=== PATIENT | female | born 1985 | race Caucasian/White ===

== ENCOUNTER 2016-10-26 22:29 | Emergency (ER) | payer MEDICAID ==
[2016-10-26 22:29] VITALS: BMI 27.8
--- NOTE | 2016-10-26 23:02 | C.PDOC ---
History Of Present Illness Patient presents to the ED requesting pain medications. Patient was recently seen at another ED for possible gastric pacing, however, it did not happen. Patient was at dialysis (Mon./Wed./Sun.) yesterday and complains of diffuse body pain. Patient also notes a fever. Patient denies any nausea, vomiting, diarrhea, or any other complaints. Time Seen by Provider: 10/26/16 23:00 Chief Complaint (Nursing): Shortness Of Breath History Per: Patient History/Exam Limitations: no limitations Onset/Duration Of Symptoms: Hrs Current Symptoms Are (Timing): Still Present Quality: "Pain" Current Respiratory Medications: None Severity: Mild Pain Scale Rating Of: 4 Associated Symptoms: Fever Recent travel outside of the [place]: No Past Medical History Reviewed: Historical Data, Nursing Documentation, Vital Signs Vital Signs: Last Vital Signs Temp 99.8 F H 10/27/16 01:41 Pulse 92 H 10/27/16 01:41 Resp 18 10/27/16 01:41 BP 152/100 H 10/27/16 01:41 Pulse Ox 99 10/27/16 01:41 - Medical History PMH: Anemia, Anxiety, Diabetes, Fractures (Sep 2012 L foot), Gastritis, Gastrointestinal Ulcer (gastroparesis), Gall Bladder Disease (gallbladder removed), Hepatitis, HTN, Hypercholesterolemia, Hyperthyroidism, Hypothyroidism , Kidney Stones, Pancreatitis (chronic), Peripheral Edema, End Stage Renal Disease, Chronic Kidney Disease, Seizures, Chronic Pain Denies: Sexually Transmitted Disease Surgical History: Cholecystectomy, Coronary Stent (2 weeks ago) - [facility] Procedures ASSISTANCE WITH RESPIRATORY VENTILATION, 24-96 HRS, CPAP (05/25/16) CAUTERY TO STOP EPISTAX (03/22/14) CENTRAL VENOUS CATHETER PLACEMENT WITH GUIDANCE (11/06/14) DIALYSIS ARTERIOVENOSTOM (01/10/14) DRAINAGE OF RIGHT FOOT SKIN, EXTERNAL APPROACH (07/17/16) DRAINAGE OF RIGHT LOWER ARM SKIN, EXTERNAL APPROACH (05/25/16) ESOPHAGOGASTRODUODENOSCOPY [EGD] W/CLOSED BIOPSY (03/03/14) EXCISION OF STOMACH, ENDO, DIAGN (05/09/16) EXTIRPATE MATTER FROM R LOW ARM SUBCU/FASCIA, PERC (05/25/16) EXTRACTION OF RIGHT FOOT SKIN, EXTERNAL APPROACH (05/25/16) FLEXIBLE SIGMOIDOSCOPY (10/26/14) FLUOROSCOPY OF R JUGULAR VEIN USING L OSM CONTRAST, GUIDANCE (12/13/15) FLUOROSCOPY OF RIGHT SUBCLAVIAN VEIN, GUIDANCE (08/07/16) HEMODIALYSIS (04/05/15) INJECT INSULIN (12/23/12) INJECT/INFUSE ELECTROLYT (12/23/12) INJECT/INFUSE NEC (01/17/15) INSERT INFUSION DEV IN R INT JUGULAR VEIN, PERC (02/23/16) INSERTION OF INFUSION DEV INTO R BASILIC VEIN, PERC APPROACH (04/18/16) INSERTION OF INFUSION DEV INTO R SUBCLAV VEIN, PERC APPROACH (08/29/16) INSERTION OF INFUSION DEV INTO SUP VENA CAVA, PERC APPROACH (05/25/16) INSERTION OF INFUSION DEVICE INTO R ATRIUM, PERC APPROACH (12/13/15) INSERTION OF VAD INTO CHEST SUBCU/FASCIA, OPEN APPROACH (12/13/15) MEASURE OF CARDIAC SAMPL & PRESSURE, L HEART, PERC APPROACH (10/09/16) OTHER ENDOSCOPY OF SM INTEST (08/25/14) PACKED CELL TRANSFUSION (10/26/14) PERFORMANCE OF URINARY FILTRATION, MULTIPLE (10/09/16) PERFORMANCE OF URINARY FILTRATION, SINGLE (10/02/16) PLAIN RADIOGRAPHY OF LEFT HEART USING OTHER CONTRAST (10/09/16) PLAIN RADIOGRAPHY OF MULT COR ART USING OTH CONTRAST (10/09/16) PLICATION OF VENA CAVA (03/22/14) POST NASAL PAC FOR EPIST (03/22/14) REMOVAL OF VAD FROM TRUNK SUBCU/FASCIA, OPEN APPROACH (02/23/16) MELVIN KENNY DIALYSIS SHUNT (03/03/14) THERAPEUTIC ERYTHROCYTAPHERESIS (10/26/14) TRANSFUSE NONAUT RED BLOOD CELLS IN PERIPH VEIN, PERC (08/29/16) ULTRASONOGRAPHY OF RIGHT SUBCLAVIAN VEIN, GUIDANCE (08/29/16) VACCINATION NEC (10/26/14) VENOUS CATHETERIZATION FOR RENAL DIALYSIS (03/03/14) Family History: States: Unknown Family Hx - Social History Hx Tobacco Use: No Hx Alcohol Use: No Hx Substance Use: Yes - Immunization History Hx Tetanus Toxoid Vaccination: Yes Hx Influenza Vaccination: Yes Hx Pneumococcal Vaccination: Yes Review Of Systems Except As Marked, All Systems Reviewed And Found Negative. Constitutional: Positive for: Fever Cardiovascular: Negative for: Chest Pain Respiratory: Negative for: Shortness of Breath Gastrointestinal: Negative for: Nausea, Vomiting, Diarrhea Musculoskeletal: Positive for: Back Pain, Other (Diffuse body pain.) Skin: Negative for: Rash, Lesions Neurological: Negative for: Weakness Psych: Positive for: Anxiety Physical Exam - Physical Exam Appears: Non-toxic Skin: Warm, Dry Cardiovascular: Rhythm Regular Respiratory: No Rales, Rhonchi (Scattered rhonchi), No Wheezing Gastrointestinal/Abdominal: Soft, No Tenderness, Distention, No Guarding, No Rebound, Other (Tympanic to percussion) Extremity: Normal ROM, No Tenderness Neurological/Psych: Oriented x3 ED Course And Treatment - Laboratory Results Result Diagrams: 10/27/16 01:37 10/27/16 01:37 O2 Sat by Pulse Oximetry: 98 Pulse Ox Interpretation: Normal - Radiology CXR: Interpreted by Me, Viewed By Me CXR Interpretation: Yes: Other (Abnormal heart. Unchanged from previous.). No: Infiltrates, Fracture Reevaluation Time: 02:16 Reassessment Condition: Improved Disposition Counseled Patient/Family Regarding: Studies Performed, Diagnosis, Need For Followup - Disposition Referrals: Cecil Wilkins Jr., MD [Medical Doctor] - Disposition: HOME/ ROUTINE Disposition Time: 02:14 Condition: FAIR Instructions: Fever in Adults (GEN) - Clinical Impression Clinical Impression: Fever, Chronic intractable pain - Scribe Statement The provider has reviewed the documentation as recorded by the Scribjoan Noland All medical record entries made by the Kwadwoibjoan were at my direction and personally dictated by me. I have reviewed the chart and agree that the record accurately reflects my personal performance of the history, physical exam, medical decision making, and the department course for this patient. I have also personally directed, reviewed, and agree with the discharge instructions and disposition.
[2016-10-27 01:40] LABS: VENOUS BLOOD GAS BASE EXCESS -0.6 mmol/L (0.0-2.0); VENOUS BLOOD GAS PCO2 43 mmHg (40-60); VENOUS BLOOD PH 7.37 (7.32-7.43)
[2016-10-27 01:40] LABS: BASO # 0.1 K/uL (0.0-0.2); BASO % 0.9 % (0.0-2.0); EOS # 0.2 K/uL (0.0-0.7); EOS % 2.3 % (0.0-4.0); HEMATOCRIT 24.5 % (34.0-47.0); LYMPH # 0.7 K/uL (1.0-4.3); LYMPH % 7.6 % (20.0-40.0); MEAN CORPUSCULAR HEMOGLOBIN 31.1 pg (27.0-31.0); MEAN CORPUSCULAR HGB CONC 32.7 g/dL (33.0-37.0); MEAN PLATELET VOLUME 7.4 fL (7.2-11.7); MONO # 0.6 K/uL (0.0-0.8); MONO % 6.5 % (0.0-10.0); NRBC % 0.1 % (0.0-2.0); PLATELET COUNT 280 K/uL (130-400); RED CELL DISTRIBUTION WIDTH 15.4 % (11.5-14.5); WHITE BLOOD COUNT 9.6 K/uL (4.8-10.8)
[2016-10-27 01:42] VITALS: BP 152/100; PULSE 92; RESP 18; TEMP 99.8
[2016-10-27 01:55] LABS: POTASSIUM 5.4 mmol/L (3.6-5.2)
[2016-10-27 01:58] LABS: ALB/GLOB RATIO 1.2 (1.0-2.1); BILIRUBIN,TOTAL 0.4 mg/dL (0.2-1.3); CALCIUM 7.7 mg/dl (8.6-10.4); TOTAL PROTEIN 7.2 g/dL (6.3-8.3)
[2016-10-27] MEDS ORDERED: DiphenhydrAMINE 50 mg/ml Inj ONE (01:59)
[2016-10-27] MEDS ORDERED: DiphenhydrAMINE 50 mg/ml Inj IVP STA (02:04)
[2016-10-27 02:06] LABS: EOSINOPHIL 1 % (0-4); NEUTROPHIL 82 % (50-75); TOTAL CELLS COUNTED 100
[2016-10-27 02:16] VITALS: O2SAT 98
--- NOTE | 2016-10-27 08:50 | RAD ---
HISTORY: SOB COMPARISON: Chest x-ray performed 09/22/16 TECHNIQUE: Chest, one view. FINDINGS: LUNGS: Mild basilar atelectasis or infiltrates. Please note that chest x-ray has limited sensitivity for the detection of pulmonary masses. PLEURA: No significant pleural effusion identified. No definite pneumothorax . CARDIOVASCULAR: Cardiomegaly with CTR approximately 18 x 29.3. OSSEOUS STRUCTURES: No acute osseous abnormality identified. VISUALIZED UPPER ABDOMEN: Unremarkable. OTHER FINDINGS: None. IMPRESSION: Mild basilar atelectasis or infiltrates. Cardiomegaly.
== END 2016-10-27 02:23 | disposition home or self-care (01) ==
LOC: C.ER 22:29
DX: G89.29 Other chronic pain (principal); R50.9 Fever, unspecified

== ENCOUNTER 2016-10-30 15:17 | Inpatient (IN) | payer MEDICAID ==
[2016-10-30 15:32] VITALS: BMI 27.4
[2016-10-30] MEDS ORDERED: Piperacill/Tazo 2.25gm in Dex 50 ML IVPB STA (17:16)
--- NOTE | 2016-10-30 17:36 | C.PDOC ---
History Of Present Illness 30 y/o female presents to the ED for evaluation of fevers x 3 days. She is also complaining of constant chest pain and left shoulder pain x 3 days. Patient denies cough, shortness of breath, nausea, vomiting, abdominal pain, diarrhea, weakness, or numbness. Time Seen by Provider: 10/30/16 17:13 Chief Complaint (Nursing): Chest Pain History Per: Patient History/Exam Limitations: no limitations Onset/Duration Of Symptoms: Days (3), Gradual, Persistent Current Symptoms Are (Timing): Still Present Recent travel outside of the [place]: No Past Medical History Reviewed: Historical Data, Nursing Documentation, Vital Signs Vital Signs: Last Vital Signs Temp 102 F H 10/30/16 15:32 Pulse 100 H 10/30/16 17:30 Resp 22 10/30/16 15:32 BP 156/91 H 10/30/16 15:32 Pulse Ox 98 10/30/16 17:38 - Medical History PMH: Anemia, Anxiety, Diabetes, Fractures (Sep 2012 L foot), Gastritis, Gastrointestinal Ulcer (gastroparesis), Gall Bladder Disease (gallbladder removed), Hepatitis, HTN, Hypercholesterolemia, Hyperthyroidism, Hypothyroidism , Kidney Stones, Pancreatitis (chronic), Peripheral Edema, End Stage Renal Disease, Chronic Kidney Disease, Seizures, Chronic Pain Surgical History: Cholecystectomy, Coronary Stent - [facility] Procedures ASSISTANCE WITH RESPIRATORY VENTILATION, 24-96 HRS, CPAP (05/25/16) CAUTERY TO STOP EPISTAX (03/22/14) CENTRAL VENOUS CATHETER PLACEMENT WITH GUIDANCE (11/06/14) DIALYSIS ARTERIOVENOSTOM (01/10/14) DRAINAGE OF RIGHT FOOT SKIN, EXTERNAL APPROACH (07/17/16) DRAINAGE OF RIGHT LOWER ARM SKIN, EXTERNAL APPROACH (05/25/16) ESOPHAGOGASTRODUODENOSCOPY [EGD] W/CLOSED BIOPSY (03/03/14) EXCISION OF STOMACH, ENDO, DIAGN (05/09/16) EXTIRPATE MATTER FROM R LOW ARM SUBCU/FASCIA, PERC (05/25/16) EXTRACTION OF RIGHT FOOT SKIN, EXTERNAL APPROACH (05/25/16) FLEXIBLE SIGMOIDOSCOPY (10/26/14) FLUOROSCOPY OF R JUGULAR VEIN USING L OSM CONTRAST, GUIDANCE (12/13/15) FLUOROSCOPY OF RIGHT SUBCLAVIAN VEIN, GUIDANCE (08/07/16) HEMODIALYSIS (04/05/15) INJECT INSULIN (12/23/12) INJECT/INFUSE ELECTROLYT (12/23/12) INJECT/INFUSE NEC (01/17/15) INSERT INFUSION DEV IN R INT JUGULAR VEIN, PERC (02/23/16) INSERTION OF INFUSION DEV INTO R BASILIC VEIN, PERC APPROACH (04/18/16) INSERTION OF INFUSION DEV INTO R SUBCLAV VEIN, PERC APPROACH (08/29/16) INSERTION OF INFUSION DEV INTO SUP VENA CAVA, PERC APPROACH (05/25/16) INSERTION OF INFUSION DEVICE INTO R ATRIUM, PERC APPROACH (12/13/15) INSERTION OF VAD INTO CHEST SUBCU/FASCIA, OPEN APPROACH (12/13/15) MEASURE OF CARDIAC SAMPL & PRESSURE, L HEART, PERC APPROACH (10/09/16) OTHER ENDOSCOPY OF SM INTEST (08/25/14) PACKED CELL TRANSFUSION (10/26/14) PERFORMANCE OF URINARY FILTRATION, MULTIPLE (10/09/16) PERFORMANCE OF URINARY FILTRATION, SINGLE (10/02/16) PLAIN RADIOGRAPHY OF LEFT HEART USING OTHER CONTRAST (10/09/16) PLAIN RADIOGRAPHY OF MULT COR ART USING OTH CONTRAST (10/09/16) PLICATION OF VENA CAVA (03/22/14) POST NASAL PAC FOR EPIST (03/22/14) REMOVAL OF VAD FROM TRUNK SUBCU/FASCIA, OPEN APPROACH (02/23/16) MELVIN KENNY DIALYSIS SHUNT (03/03/14) THERAPEUTIC ERYTHROCYTAPHERESIS (10/26/14) TRANSFUSE NONAUT RED BLOOD CELLS IN PERIPH VEIN, PERC (08/29/16) ULTRASONOGRAPHY OF RIGHT SUBCLAVIAN VEIN, GUIDANCE (08/29/16) VACCINATION NEC (10/26/14) VENOUS CATHETERIZATION FOR RENAL DIALYSIS (03/03/14) Family History: States: Unknown Family Hx - Social History Hx Tobacco Use: No Hx Alcohol Use: No Hx Substance Use: Yes - Immunization History Hx Tetanus Toxoid Vaccination: Yes Hx Influenza Vaccination: Yes Hx Pneumococcal Vaccination: Yes Review Of Systems Except As Marked, All Systems Reviewed And Found Negative. Constitutional: Positive for: Fever Cardiovascular: Positive for: Chest Pain Respiratory: Negative for: Cough, Shortness of Breath Gastrointestinal: Negative for: Nausea, Vomiting, Abdominal Pain, Diarrhea Musculoskeletal: Positive for: Shoulder Pain (left) Neurological: Negative for: Weakness, Numbness Physical Exam - Physical Exam Appears: Non-toxic, No Acute Distress Skin: Normal Color, Warm, Dry Head: Atraumatic, Normacephalic Eye(s): bilateral: Normal Inspection, PERRL Ear(s): Bilateral: Normal Nose: Normal Oral Mucosa: Moist Throat: Normal, No Erythema, No Exudate Neck: Normal ROM, Supple Chest: Symmetrical, No Tenderness Cardiovascular: Rhythm Regular Respiratory: Normal Breath Sounds, No Rales, No Rhonchi, No Wheezing Gastrointestinal/Abdominal: Normal Exam, Soft, No Tenderness Back: Normal Inspection, No CVA Tenderness Extremity: Normal ROM, No Tenderness, No Deformity, No Swelling Neurological/Psych: Oriented x3, Normal Speech, Normal Cognition ED Course And Treatment - Laboratory Results Result Diagrams: 10/30/16 17:50 10/30/16 17:50 O2 Sat by Pulse Oximetry: 98 (ra) Pulse Ox Interpretation: Normal Medical Decision Making Medical Decision Makin the pt is refusing abx she says until she receives narcotics [id number] Wilkins who will admit- says pt had recent +blood cx for MRSA. he agrees that narcotic are only harming the pt at this point and rec no narcotics. pt now will accept vanco Disposition - Disposition Disposition Time: 18:50 Condition: SERIOUS - Clinical Impression Clinical Impression: Fever, Positive blood culture - Scribe Statement The provider has reviewed the documentation as recorded by the Scribe (Dennise Mix) Provider Attestation: All medical record entries made by the Scribe were at my direction and personally dictated by me. I have reviewed the chart and agree that the record accurately reflects my personal performance of the history, physical exam, medical decision making, and the department course for this patient. I have also personally directed, reviewed, and agree with the discharge instructions and disposition.
[2016-10-30 17:58] LABS: VENOUS BLOOD GAS BASE EXCESS -3.4 mmol/L (0.0-2.0); VENOUS BLOOD GAS PCO2 32 mmHg (40-60); VENOUS BLOOD PH 7.41 (7.32-7.43)
[2016-10-30 18:01] LABS: POTASSIUM 6.1 mmol/L (3.6-5.2)
[2016-10-30 18:03] LABS: BILIRUBIN,TOTAL 0.5 mg/dL (0.2-1.3)
[2016-10-30 18:04] LABS: ALB/GLOB RATIO 1.2 (1.0-2.1); CALCIUM 6.4 mg/dl (8.6-10.4); TOTAL PROTEIN 7.1 g/dL (6.3-8.3)
[2016-10-30 18:11] LABS: BASO # 0.1 K/uL (0.0-0.2); BASO % 1.3 % (0.0-2.0); EOS # 0.2 K/uL (0.0-0.7); EOS % 2.4 % (0.0-4.0); HEMATOCRIT 21.8 % (34.0-47.0); LYMPH # 0.9 K/uL (1.0-4.3); LYMPH % 9.1 % (20.0-40.0); MEAN CELL VOLUME 94.9 fL (81.0-99.0); MEAN CORPUSCULAR HEMOGLOBIN 31.4 pg (27.0-31.0); MEAN CORPUSCULAR HGB CONC 33.1 g/dL (33.0-37.0); MEAN PLATELET VOLUME 8.7 fL (7.2-11.7); MONO # 0.7 K/uL (0.0-0.8); MONO % 7.3 % (0.0-10.0); NRBC % 0.2 % (0.0-2.0); PLATELET COUNT 222 K/uL (130-400); RED CELL DISTRIBUTION WIDTH 15.3 % (11.5-14.5); WHITE BLOOD COUNT 10.1 K/uL (4.8-10.8)
[2016-10-30 18:15] LABS: TROPONIN I 0.047 ng/mL (0.00-0.120)
[2016-10-30 18:47] LABS: EOSINOPHIL 3 % (0-4); LARGE PLATELETS PRESENT; NEUTROPHIL 75 % (50-75); SMUDGE CELLS PRESENT; TOTAL CELLS COUNTED 100
[2016-10-30] MEDS ORDERED: Vancomycin 1 gm/NS 200 ml 200 ML IVPB ONE (19:00)
[2016-10-31] MEDS ORDERED: DiphenhydrAMINE 50 mg/ml Inj IVP STA ×4 (01:35→16:53)
--- NOTE | 2016-10-31 05:18 | CP.PCM.HP ---
History of Present Illness - History of Present Illness History of Present Illness: CC: "Fever, Abdominal Pain, and Right shoulder pain" HPI: Patient a 30 year old female with a past medical history significant for gastroparesis, DM, HTN, right foot abscess, ESRD (HD MWF), 2004, and chronic opiate dependence presenting for medical evaluation of abdominal pain and chest pain (consistent with her baseline). She has a known history of gastroparesis. The patient was requesting pain medication in the emergency room as well as on the floors. Patient states she went to dialysis center yesterday however did not receive hemodialysis as she was found to be febrile. She admits to fevers x 3 days and chills. Patient also notes one episode of bilious emesis yesterday. Patient is also reporting right shoulder pain which started yesterday and denies any trauma/falls. Per ED attending, patient's blood culture (10/27/16) resulted positive for MRSA. PMD: Dr. Franky Hanson: Dr. Phillips PMH: gastroparesis, DM, HTN, Right foot abscess, ESRD on HD MWF, 2004, chronic opiate dependence Meds: Extensive Medication list is updated in EMR Allergy: Toradol, Latex, Morphine, Tramadol PSH: exlap for adhesions 2005 and 2009. Cholecystectomy 2009. L arm AVF 2014, I& D right foot abscess FH: DM mother and unknown ca in mother's family Social: denied EtOH, drugs, smoking. Lives with mother Present on Admission - Present on Admission Any Indicators Present on Admission: No History of DVT/PE: No History of Uncontrolled Diabetes: No Urinary Catheter: No Decubitus Ulcer Present: No Review of Systems - Constitutional Constitutional: Chills, Fever. absent: Night Sweats - EENT Eyes: absent: Blurred Vision, Change in Vision Nose/Mouth/Throat: absent: Nasal Congestion, Nasal Discharge - Cardiovascular Cardiovascular: Chest Pain. absent: Dyspnea, Dyspnea on Exertion - Respiratory Respiratory: absent: Cough, Dyspnea, Dyspnea on Exertion, Chest Congestion - Gastrointestinal Gastrointestinal: Abdominal Pain. absent: Constipation, Diarrhea - Genitourinary Genitourinary: Other Additional comments: ESRD - Musculoskeletal Additional comments: right shoulder pain - Integumentary Integumentary: Lesions Additional comments: lesions present on left upper extremity present for 1 month - Psychiatric Psychiatric: Anxiety. absent: Depression Past Patient History - Infectious Disease Hx of Infectious Diseases: MRSA - Tetanus Immunizations Tetanus Immunization: Unknown - Past Medical History & Family History Past Medical History?: Yes - Past Social History Smoking Status: Never Smoked - CARDIAC Hx Hypercholesterolemia: Yes Hx Hypertension: Yes Hx Peripheral Edema: Yes - NEUROLOGICAL Hx Seizures: Yes - HEENT Hx HEENT Problems: No - RENAL Hx Chronic Kidney Disease: Yes Type of Dialysis Access: left arm av shunt Date of Last Dialysis Treatment: 10/27/16 Hx Kidney Stones: Yes - ENDOCRINE/METABOLIC Hx Diabetes Mellitus Type 2: Yes Hx Hypothyroidism: Yes - HEMATOLOGICAL/ONCOLOGICAL Hx Anemia: Yes - INTEGUMENTARY Hx Dermatological Problems: Yes Other/Comment: DRY ITCHY SKIN ;multiple/generalized dark spots on skin - MUSCULOSKELETAL/RHEUMATOLOGICAL Hx Falls: No - GASTROINTESTINAL Hx Gall Bladder Disease: Yes (gallbladder removed) Hx Gastritis: Yes Hx Pancreatitis: Yes (chronic) Other/Comment: gastroparesis - GENITOURINARY/GYNECOLOGICAL Hx Genitourinary Disorders: No - PSYCHIATRIC Hx Substance Use: No - SURGICAL HISTORY Hx Cholecystectomy: Yes Hx Coronary Stent: Yes - ANESTHESIA Hx Anesthesia: Yes Hx Anesthesia Reactions: No Hx Malignant Hyperthermia: No Meds Allergies/Adverse Reactions: Allergies Allergy/AdvReac Type Severity Reaction Status Date / Time ketorolac tromethamine Allergy RASH Verified 10/30/16 15:32 [From Toradol] latex Allergy RASH Verified 10/30/16 15:32 morphine Allergy RASH Verified 10/30/16 15:32 tramadol Allergy RASH Verified 10/30/16 15:32 Physical Exam - Constitutional Appears: Non-toxic, No Acute Distress - Head Exam Head Exam: ATRAUMATIC, NORMAL INSPECTION, NORMOCEPHALIC - Eye Exam Eye Exam: EOMI, Normal appearance, PERRL - ENT Exam ENT Exam: Mucous Membranes Moist - Respiratory Exam Respiratory Exam: Clear to Auscultation Bilateral, NORMAL BREATHING PATTERN. absent: Rales, Rhonchi, Wheezes - Cardiovascular Exam Cardiovascular Exam: +S1, +S2. absent: Tachycardia, Diastolic murmur, Systolic Murmur - GI/Abdominal Exam GI & Abdominal Exam: Normal Bowel Sounds, Soft, Tenderness. absent: Distended, Firm, Guarding - Extremities Exam Extremities exam: Positive for: pedal edema, pedal pulses present. Negative for : tenderness - Back Exam Back exam: NORMAL INSPECTION - Neurological Exam Neurological exam: Alert, CN II-XII Intact, Oriented x3 - Psychiatric Exam Psychiatric exam: Anxious - Skin Additional comments: multiple papular lesions with pustules to right upper extremity Results - Vital Signs Recent Vital Signs: Last Vital Signs Temp 98 F 10/31/16 02:30 Pulse 84 10/31/16 02:30 Resp 22 10/31/16 02:30 BP 166/92 H 10/31/16 02:30 Pulse Ox 98 10/31/16 02:30 - Labs Result Diagrams: 10/30/16 17:50 10/30/16 17:50 Assessment & Plan - Assessment and Plan (Free Text) Assessment: 1. Bacteremia Blood cx (10/27) MRSA positive f/u repeat blood cx f/u cxr Vancomycin 1 gm IVPB q24h Tylenol 650 mg po q6h prn for fever Consult ID, Dr. Pinto. 2. ESRD on HD HD MWF schedule Nephro Consult Dr. Jacqueline MAXWELL Labs: CBC/CMP/Mg/Phos 3. Abdominal Pain likely secondary to gastroparesis Renal diet Reglan 10 mg po daily Zofran 4 mg IVP q6h prn Per Dr. Wilkins - do not continue to give dilaudid 4. Hypertension Clonidine 0.3 mg po TID Procardia 60 mg BID Monitor 5. DM Levemir 12 units SC Q12H Novolog 6 unit SC AC RISS Accuchecks 6. Prophylaxis SCD Colace 100 mg po BID Heparin 5000 U SC q12 Pepcid 20 mg po daily - Date & Time Date: 10/31/16 Time: 05:46
[2016-10-31] MEDS: (Novolog) Insulin Aspart, Recombinant 100 u/ml 10 ml vial SC SCH ×3 (07:46→16:30)
[2016-10-31] MEDS: (Novolin R) Insulin Human Regular 100 units/ml vial SC SCH ×4 (07:46→22:02)
--- NOTE | 2016-10-31 07:56 | CP.PCM.PN ---
Subjective - Date & Time of Evaluation Date of Evaluation: 10/31/16 Time of Evaluation: 07:35 - Subjective Subjective: PGY1 Medicine Note - Dr. Wilkins Patient seen and examined at bedside. Reports fevers x 3 days and chills. Patient also notes one episode of bilious emesis yesterday. Patient is also reporting right shoulder pain which started yesterday and denies any trauma/ falls. Per ED attending, patient's blood culture (10/27/16) resulted positive for MRSA. Denies dizziness, chest pain, SOB, d/c, Objective - Vital Signs/Intake and Output Vital Signs (last 24 hours): Temp Pulse Resp BP Pulse Ox 98 F 103 H 20 165/93 H 97 10/31/16 07:48 10/31/16 07:48 10/31/16 07:48 10/31/16 07:48 10/31/16 07:48 Intake and Output: 10/31/16 10/31/16 06:59 18:59 Intake Total 240 Balance 240 - Medications Medications: Current Medications Acetaminophen (Tylenol 325mg Tab) 650 mg PO Q6 PRN PRN Reason: Fever >100.4 F Clonidine HCl (Catapres) 0.3 mg PO TID AKREN Docusate Sodium (Colace) 100 mg PO BID KAREN Famotidine (Pepcid) 20 mg PO DAILY [facility] Heparin Sodium (Porcine) (Heparin) 5,000 units SC Q12 [facility] Vancomycin HCl 1 gm/ Sodium (Chloride) 250 mls @ 166.7 mls/hr IVPB Q24H [facility] Insulin Aspart (Novolog) 6 unit SC AC [facility] Last Admin: 10/31/16 07:46 Dose: Not Given Insulin Detemir (Levemir) 12 unit SC Q12 [facility] Insulin Human Regular (Novolin R) 0 unit SC ACHS KAREN PRN Reason: Protocol Last Admin: 10/31/16 07:46 Dose: Not Given Metoclopramide HCl (Reglan) 10 mg PO DAILY [facility] Nifedipine (Procardia Xl) 60 mg PO BID KAREN Ondansetron HCl (Zofran Inj) 4 mg IVP Q6H PRN PRN Reason: Nausea/Vomiting - Additional Findings Additional findings: - Constitutional Appears: Non-toxic, No Acute Distress - Head Exam Head Exam: ATRAUMATIC, NORMAL INSPECTION, NORMOCEPHALIC - Eye Exam Eye Exam: EOMI, Normal appearance, PERRL - ENT Exam ENT Exam: Mucous Membranes Moist - Respiratory Exam Respiratory Exam: Clear to Auscultation Bilateral, NORMAL BREATHING PATTERN. absent: Rales, Rhonchi, Wheezes - Cardiovascular Exam Cardiovascular Exam: +S1, +S2. absent: Tachycardia, Diastolic murmur, Systolic Murmur - GI/Abdominal Exam GI & Abdominal Exam: Normal Bowel Sounds, Soft, Tenderness. absent: Distended, Firm, Guarding - Extremities Exam Extremities exam: Positive for: pedal edema, pedal pulses present. Negative for : tenderness - Back Exam Back exam: NORMAL INSPECTION - Neurological Exam Neurological exam: Alert, CN II-XII Intact, Oriented x3 - Psychiatric Exam Psychiatric exam: Anxious - Skin Additional comments: multiple papular lesions with pustules to right upper extremity Assessment and Plan - Assessment and Plan (Free Text) Assessment: Bacteremia f/u repeat blood cx - G(+), pending Blood cx (10/27) MRSA positive CXR - moderate CHF Vancomycin 1 gm IVPB q24h Tylenol 650 mg po q6h prn for fever Consult ID, Dr. Pinto. -mrsa sepsis source unclear r/o dialysis related, skin source, other may need KAMRAN to r/o endocarditis ESRD on HD HD MWF schedule (received 10/31) Nephro Consult Dr. Phillips -EPO 10.000 + FERRLICIT 125 MG ON HD Abdominal Pain likely secondary to gastroparesis Renal diet Reglan 10 mg po daily Zofran 4 mg IVP q6h prn Per Dr. Wilkins - do not continue to give dilaudid Hypertension Clonidine 0.3 mg po TID Procardia 60 mg BID Monitor DM Levemir 12 units SC Q12H Novolog 6 unit SC AC RISS Accuchecks Depression Lexapro 20mg PO daily Cymbalta 60mg PO BID Prophylaxis SCD Colace 100 mg po BID START Xarelto 15mg daily STOP Heparin 5000 U SC q12 (patient can't tolerate injection) Pepcid 20 mg po daily Right shoulder pain CXR R shoulder- negative
[2016-10-31] MEDS ORDERED: Epoetin Alfa 10,000 unit/ml Dialysis IV ONE (09:31)
[2016-10-31 09:48] LABS: BASO # 0.1 K/uL (0.0-0.2); EOS # 0.4 K/uL (0.0-0.7); EOS % 3.6 % (0.0-4.0); HEMATOCRIT 22.9 % (34.0-47.0); LYMPH % 10.3 % (20.0-40.0); MEAN CELL VOLUME 94.3 fL (81.0-99.0); MEAN CORPUSCULAR HGB CONC 32.8 g/dL (33.0-37.0); MEAN PLATELET VOLUME 8.4 fL (7.2-11.7); MONO # 0.5 K/uL (0.0-0.8); MONO % 5.1 % (0.0-10.0); RED CELL DISTRIBUTION WIDTH 15.3 % (11.5-14.5)
[2016-10-31 09:58] LABS: POTASSIUM 4.9 mmol/L (3.6-5.2)
[2016-10-31 10:00] LABS: ALB/GLOB RATIO 1.1 (1.0-2.1); BILIRUBIN,TOTAL 0.6 mg/dL (0.2-1.3); PHOSPHOROUS 4.9 mg/dL (2.5-4.5); TOTAL PROTEIN 7.5 g/dL (6.3-8.3)
[2016-10-31 10:01] LABS: CALCIUM 7.1 mg/dl (8.6-10.4)
--- NOTE | 2016-10-31 10:21 | RAD ---
PROCEDURE: CHEST RADIOGRAPH, 1 VIEW HISTORY: Chest pain COMPARISON: 10/27/2016 FINDINGS: LUNGS: There is interval worsening of pulmonary venous congestion and development of interstitial pulmonary edema. PLEURA: There are small pleural effusions, larger on the right. No pneumothorax. CARDIOVASCULAR: There is persistent moderate cardiomegaly. OSSEOUS STRUCTURES: No significant abnormalities. VISUALIZED UPPER ABDOMEN: Upper OTHER FINDINGS: None. IMPRESSION: Findings are compatible with moderate congestive heart failure.
--- NOTE | 2016-10-31 10:26 | RAD ---
PROCEDURE: Radiographs of the Left Shoulder HISTORY: pain COMPARISON: No prior. FINDINGS: BONES: Normal. No fracture. JOINTS: Normal. Glenohumeral and acromioclavicular joints preserved. No osteoarthritis. SOFT TISSUES: Normal. OTHER FINDINGS: None. IMPRESSION: Normal radiographs of the left shoulder.
[2016-10-31] MEDS: Ferric Sodium Gluconat Complex 62.5 mg/5 ml Vial IVPB SCH (10:40)
--- NOTE | 2016-10-31 11:59 | CP.PCM.CON ---
History of Present Illness - History of Present Illness History of Present Illness: 30 year old female admitted with fever from dialysis clinic r/o sepsis blood culture (10/27/16) resulted positive for MRSA. PMH gastroparesis, DM, HTN, right foot abscess, ESRD (HD MWF), [place] 2004, and chronic opiate dependence PMD: Dr. Franky Hanson: Dr. Phillips PMH: gastroparesis, DM, HTN, Right foot abscess, ESRD on HD MWF, [place] 2004, chronic opiate dependence Allergy: Toradol, Latex, Morphine, Tramadol PSH: exlap for adhesions 2005 and 2009. Cholecystectomy 2009. L arm AVF 2014, I& D right foot abscess FH: DM mother and unknown ca in mother's family Social: denied EtOH, drugs, smoking. Lives with mother Review of Systems - Constitutional Constitutional: As Per HPI, Anorexia, Chills - EENT Eyes: absent: As Per HPI, Blind Spots, Blurred Vision, Change in Vision, Decreased Night Vision, Diplopia, Discharge, Dry Eye, Exophthalmos, Floaters, Irritation, Itchy Eyes, Loss of Peripheral Vision, Pain, Photophobia, Requires Corrective Lenses, Sees Flashes, Spots in Vision, Tunnel Vision, Other Visual Disturbances, Loss of Vision, Other Ears: absent: As Per HPI, Decreased Hearing, Ear Discharge, Ear Pain, Tinnitus, Abnormal Hearing, Disequilibrium, Dizziness, Other Nose/Mouth/Throat: absent: As Per HPI, Epistaxis, Nasal Congestion, Nasal Discharge, Nasal Obstruction, Nasal Trauma, Nose Pain, Post Nasal Drip, Sinus Pain, Sinus Pressure, Bleeding Gums, Change in Voice, Dental Pain, Dry Mouth, Dysphagia, Halitosis, Hoarsness, Lip Swelling, Mouth Lesions, Mouth Pain, Odynophagia, Sore Throat, Throat Swelling, Tongue Swelling, Facial Pain, Neck Pain, Neck Mass, Other - Cardiovascular Cardiovascular: absent: As Per HPI, Acrocyanosis, Chest Pain, Chest Pain at Rest , Chest Pain with Activity, Claudication, Diaphoresis, Dyspnea, Dyspnea on Exertion, Edema, Irregular Heart Rhythm, Pain Radiating to Arm/Neck/Jaw, Leg Edema, Leg Ulcers, Lightheadedness, Orthopnea, Palpitations, Paroxysmal Nocturnal Dyspnea, Pedal Edema, Radiating Pain, Rapid Heart Rate, Slow Heart Rate, Syncope, Other - Respiratory Respiratory: absent: As Per HPI, Cough, Dyspnea, Hemoptysis, Dyspnea on Exertion , Wheezing, Snoring, Stridor, Pain on Inspiration, Chest Congestion, Excessive Mucous Production, Change in Mucous Color, Pain with Coughing, Other - Gastrointestinal Gastrointestinal: absent: As Per HPI, Abdominal Pain, Belching, Bloating, Change in Bowel Habits, Change in Stool Character, Coffee Ground Emesis, Constipation, Cramping, Diarrhea, Dyspepsia, Dysphagia, Early Satiety, Excessive Flatus, Fecal Incontinence, Heartburn, Hematemesis, Hematochezia, Loose Stools, Melena, Nausea, Odynophagia, Temesmus, Vomiting, Other - Genitourinary Genitourinary: absent: As Per HPI, Change in Urinary Stream, Difficulty Urinating, Dysuria, Flank Pain, Hematuria, Pyuria, Nocturia, Urinary Incontinence, Urinary Frequency, Urinary Hesitance, Urinary Urgency, Voiding Freq/Small Amts, Freq UTI, Hx Renal/Bladder Calculi, Hx /Renal Surgery, Bladder Distension, Other - Reproductive: Female Reproductive:Female: absent: As Per HPI, Amenorrhea, Amenorrhea/ Control, Currently Menstual, Cycle <21 Days, Cycle >35 Days, Cycle Variable, Menses 1-7 Days, Menses >/= 8 Days, Menses Variable, Cycle > 4 Weeks Between, No Menses for 6 Months, Heavy Menses, Light Menses, Normal Menses, Spotting Between Cycles , S/P Hysterectomy, Menopausal, Post Menopausal, Premenarche, Abnormal Vaginal Bleeding, Dysmenorrhea, Dyspareunia, Genital Lesions, Genital Pruritis, Pelvic Pain, Prolapse Symptoms, Sexual Dysfunction, Vaginal Discharge, Vaginal Dryness , Vaginal Odor, Vaginal Pruritis, Other - Menstruation Menstruation: absent: As Per HPI, Amenorrhea, Amenorrhea/ Control, Currently Menstual, Cycle <21 Days, Cycle >35 Days, Cycle Variable, Menses 1-7 Days, Menses >/= 8 Days, Menses Variable, Cycle > 4 Weeks Between, No Menses for 6 Months, Heavy Menses, Light Menses, Normal Menses, Spotting Between Cycles , S/P Hysterectomy, Menopausal, Post Menopausal, Premenarche, Abnormal Vaginal Bleeding, Dysmenorrhea, Other - Musculoskeletal Musculoskeletal: As Per HPI - Integumentary Integumentary: As Per HPI - Neurological Neurological: As Per HPI - Psychiatric Psychiatric: absent: As Per HPI, Abnormal Sleep Pattern, Anhedonia, Anxiety, Auditory Hallucinations, Behavioral Changes, Change in Appetite, Change in Libido, Confusion, Depression, Difficulty Concentrating, Hallucinations, Homicidal Ideation, Hopelessness, Irritability, Memory Loss, Mood Swings, Panic Attacks, Paranoia, Suicidal Ideation, Visual Hallucinations, Tactile Hallucinations, Other - Endocrine Endocrine: absent: As Per HPI, Change in Body Appearance, Change in Libido, Cold Intolorance, Deepening of Voice, Excessive Sweating, Fatigue, Flushing, Heat Intolorance, Increase in Ring/Shoe/Hat Size, Palpitations, Polydipsia, Polyphagia, Polyuria, Other - Hematologic/Lymphatic Hematologic: absent: As Per HPI, Easy Bleeding, Easy Bruising, Lymphadenopathy, Other Past Patient History - Infectious Disease Hx of Infectious Diseases: MRSA - Tetanus Immunizations Tetanus Immunization: Unknown - Past Medical History & Family History Past Medical History?: Yes - Past Social History Smoking Status: Never Smoked - CARDIAC Hx Hypercholesterolemia: Yes Hx Hypertension: Yes Hx Peripheral Edema: Yes - NEUROLOGICAL Hx Seizures: Yes - HEENT Hx HEENT Problems: No - RENAL Hx Chronic Kidney Disease: Yes Type of Dialysis Access: left arm av shunt Date of Last Dialysis Treatment: 10/27/16 Hx Kidney Stones: Yes - ENDOCRINE/METABOLIC Hx Diabetes Mellitus Type 2: Yes Hx Hypothyroidism: Yes - HEMATOLOGICAL/ONCOLOGICAL Hx Anemia: Yes - INTEGUMENTARY Hx Dermatological Problems: Yes Other/Comment: DRY ITCHY SKIN ;multiple/generalized dark spots on skin - MUSCULOSKELETAL/RHEUMATOLOGICAL Hx Falls: No - GASTROINTESTINAL Hx Gall Bladder Disease: Yes (gallbladder removed) Hx Gastritis: Yes Hx Pancreatitis: Yes (chronic) Other/Comment: gastroparesis - GENITOURINARY/GYNECOLOGICAL Hx Genitourinary Disorders: No - PSYCHIATRIC Hx Substance Use: No - SURGICAL HISTORY Hx Cholecystectomy: Yes Hx Coronary Stent: Yes - ANESTHESIA Hx Anesthesia: Yes Hx Anesthesia Reactions: No Hx Malignant Hyperthermia: No Meds Allergies/Adverse Reactions: Allergies Allergy/AdvReac Type Severity Reaction Status Date / Time ketorolac tromethamine Allergy RASH Verified 10/30/16 15:32 [From Toradol] latex Allergy RASH Verified 10/30/16 15:32 morphine Allergy RASH Verified 10/30/16 15:32 tramadol Allergy RASH Verified 10/30/16 15:32 - Medications Medications: Current Medications Acetaminophen (Tylenol 325mg Tab) 650 mg PO Q6 PRN PRN Reason: Fever >100.4 F Clonidine HCl (Catapres) 0.3 mg PO TID [facility] Docusate Sodium (Colace) 100 mg PO BID [facility] Famotidine (Pepcid) 20 mg PO DAILY [facility] Ferric Sodium Gluconate Complex (Ferrlecit) 125 mg IVPB DAILY [facility] Stop: 11/08/16 10:01 Last Admin: 10/31/16 10:40 Dose: 125 mg Heparin Sodium (Porcine) (Heparin) 5,000 units SC Q12 [facility] Vancomycin HCl 1 gm/ Sodium (Chloride) 250 mls @ 166.7 mls/hr IVPB Q24H [facility] Insulin Aspart (Novolog) 6 unit SC AC [facility] Last Admin: 10/31/16 07:46 Dose: Not Given Insulin Detemir (Levemir) 12 unit SC Q12 [facility] Insulin Human Regular (Novolin R) 0 unit SC ACHS [facility] PRN Reason: Protocol Last Admin: 10/31/16 07:46 Dose: Not Given Metoclopramide HCl (Reglan) 10 mg PO DAILY [facility] Nifedipine (Procardia Xl) 60 mg PO BID [facility] Ondansetron HCl (Zofran Inj) 4 mg IVP Q6H PRN PRN Reason: Nausea/Vomiting Last Admin: 10/31/16 09:44 Dose: 4 mg Physical Exam - Constitutional Appears: Toxic, No Acute Distress, Chronically Ill - Head Exam Head Exam: NORMOCEPHALIC - Eye Exam Eye Exam: PERRL. absent: Scleral icterus - ENT Exam ENT Exam: Mucous Membranes Dry, Normal External Ear Exam, Normal Oropharynx - Neck Exam Neck exam: Negative for: Lymphadenopathy - Respiratory Exam Respiratory Exam: Decreased Breath Sounds, Clear to Auscultation Bilateral - Cardiovascular Exam Cardiovascular Exam: Tachycardia, REGULAR RHYTHM, +S1, +S2 - GI/Abdominal Exam GI & Abdominal Exam: Diminished Bowel Sounds, Soft. absent: Tenderness - Rectal Exam Rectal Exam: Deferred - Exam Exam: NORMAL INSPECTION - Extremities Exam Extremities exam: Positive for: pedal pulses present. Negative for: calf tenderness, pedal edema, tenderness - Back Exam Back exam: absent: CVA tenderness (L), CVA tenderness (R) - Neurological Exam Neurological exam: Alert, CN II-XII Intact, Oriented x3, Reflexes Normal - Psychiatric Exam Psychiatric exam: Normal Mood - Skin Skin Exam: Dry, Intact Results - Vital Signs Recent Vital Signs: Last Vital Signs Temp 99.1 F 10/31/16 08:55 Pulse 101 H 10/31/16 08:55 Resp 20 10/31/16 08:55 BP 145/71 10/31/16 11:45 Pulse Ox 96 10/31/16 08:55 - Labs Result Diagrams: 10/31/16 09:42 10/31/16 09:42 Labs: Laboratory Results - last 24 hr 10/30/16 10/31/16 10/31/16 21:47 09:42 11:42 WBC 10.0 RBC 2.43 L Hgb 7.5 L Hct 22.9 L MCV 94.3 MCH 31.0 MCHC 32.8 L RDW 15.3 H Plt Count 258 MPV 8.4 Neut % (Auto) 80.0 H Lymph % (Auto) 10.3 L [place] % (Auto) 5.1 Eos % (Auto) 3.6 Baso % (Auto) 1.0 Neut # 8.0 H Lymph # 1.0 [place] # 0.5 Eos # 0.4 Baso # 0.1 Sodium 133 Potassium 4.9 Chloride 87 L Carbon Dioxide 26 Anion Gap 25 H BUN 75 H Creatinine 9.0 H* Est GFR ( Amer) 6 Est GFR (Non-Af Amer) 5 POC Glucose (mg/dL) 316 H 149 H Random Glucose 217 H Calcium 7.1 L Phosphorus 4.9 H Magnesium 2.0 Total Bilirubin 0.6 AST 117 H ALT 113 H Alkaline Phosphatase 151 H Total Protein 7.5 Albumin 3.9 Globulin 3.6 Albumin/Globulin Ratio 1.1 Assessment & Plan (1) Accelerated essential hypertension Status: Acute (2) Bacteremia Status: Acute (3) Chest pain Status: Acute (4) Esophagitis Status: Acute (5) Fever Status: Acute (6) Positive blood culture Status: Acute - Assessment and Plan (Free Text) Assessment: mrsa sepsis source unclear r/o dialysis related, skin source, other may need KAMRAN to r/o endocarditis
[2016-10-31] MEDS: Insulin Detemir 100 units/ml Vial (Levemir) SC SCH ×2 (12:02→22:03)
[2016-10-31] MEDS: NIFEdipine 60 mg ER Tab PO SCH ×2 (12:03→18:00)
--- NOTE | 2016-10-31 18:24 | CP.PCM.CON ---
History of Present Illness - History of Present Illness History of Present Illness: REASONS FOR CONSULT : ESRD ON HD M W F AND SAT ANEMIA OF CKD PT WAS SEEN ON RENAL F/U PT WAS SEEN ON HD CC: "Fever, Abdominal Pain, and Right shoulder pain" HPI: Patient a 30 year old female with a past medical history significant for gastroparesis, DM, HTN, right foot abscess, ESRD (HD MWF), 2004, and chronic opiate dependence presenting for medical evaluation of abdominal pain and chest pain (consistent with her baseline). She has a known history of gastroparesis. The patient was requesting pain medication in the emergency room as well as on the floors. Patient states she went to dialysis center yesterday however did not receive hemodialysis as she was found to be febrile. She admits to fevers x 3 days and chills. Patient also notes one episode of bilious emesis yesterday. Patient is also reporting right shoulder pain which started yesterday and denies any trauma/falls. Per ED attending, patient's blood culture (10/27/16) resulted positive for MRSA. PMD: Dr. Franky Hanson: Dr. Phillips PMH: gastroparesis, DM, HTN, Right foot abscess, ESRD on HD MWF, 2004, chronic opiate dependence Meds: Extensive Medication list is updated in EMR Allergy: Toradol, Latex, Morphine, Tramadol PSH: exlap for adhesions 2005 and 2009. Cholecystectomy 2009. L arm AVF 2014, I& D right foot abscess FH: DM mother and unknown ca in mother's family Social: denied EtOH, drugs, smoking. Lives with mother Past Patient History - Infectious Disease Hx of Infectious Diseases: MRSA - Tetanus Immunizations Tetanus Immunization: Unknown - Past Medical History & Family History Past Medical History?: Yes - Past Social History Smoking Status: Never Smoked - CARDIAC Hx Hypercholesterolemia: Yes Hx Hypertension: Yes Hx Peripheral Edema: Yes - NEUROLOGICAL Hx Seizures: Yes - HEENT Hx HEENT Problems: No - RENAL Hx Chronic Kidney Disease: Yes Type of Dialysis Access: left arm av shunt Date of Last Dialysis Treatment: 10/27/16 Hx Kidney Stones: Yes - ENDOCRINE/METABOLIC Hx Diabetes Mellitus Type 2: Yes Hx Hypothyroidism: Yes - HEMATOLOGICAL/ONCOLOGICAL Hx Anemia: Yes - INTEGUMENTARY Hx Dermatological Problems: Yes Other/Comment: DRY ITCHY SKIN ;multiple/generalized dark spots on skin - MUSCULOSKELETAL/RHEUMATOLOGICAL Hx Falls: No - GASTROINTESTINAL Hx Gall Bladder Disease: Yes (gallbladder removed) Hx Gastritis: Yes Hx Pancreatitis: Yes (chronic) Other/Comment: gastroparesis - GENITOURINARY/GYNECOLOGICAL Hx Genitourinary Disorders: No - PSYCHIATRIC Hx Substance Use: No - SURGICAL HISTORY Hx Cholecystectomy: Yes Hx Coronary Stent: Yes - ANESTHESIA Hx Anesthesia: Yes Hx Anesthesia Reactions: No Hx Malignant Hyperthermia: No Meds Allergies/Adverse Reactions: Allergies Allergy/AdvReac Type Severity Reaction Status Date / Time ketorolac tromethamine Allergy RASH Verified 10/30/16 15:32 [From Toradol] latex Allergy RASH Verified 10/30/16 15:32 morphine Allergy RASH Verified 10/30/16 15:32 tramadol Allergy RASH Verified 10/30/16 15:32 - Medications Medications: Current Medications Acetaminophen (Tylenol 325mg Tab) 650 mg PO Q6 PRN PRN Reason: Fever >100.4 F Alprazolam (Xanax) 1 mg PO Q4H PRN PRN Reason: Anxiety Clonidine HCl (Catapres) 0.3 mg PO TID [facility] Last Admin: 10/31/16 14:16 Dose: Not Given Docusate Sodium (Colace) 100 mg PO BID [facility] Last Admin: 10/31/16 12:02 Dose: Not Given Duloxetine HCl (Cymbalta) 60 mg PO BID [facility] Escitalopram Oxalate (Lexapro) 20 mg PO DAILY [facility] Famotidine (Pepcid) 20 mg PO DAILY [facility] Last Admin: 10/31/16 12:03 Dose: Not Given Ferric Sodium Gluconate Complex (Ferrlecit) 125 mg IVPB DAILY [facility] Stop: 11/08/16 10:01 Last Admin: 10/31/16 10:40 Dose: 125 mg Vancomycin HCl 1 gm/ Sodium (Chloride) 250 mls @ 166.7 mls/hr IVPB Q24H [facility] Insulin Aspart (Novolog) 6 unit SC AC [facility] Last Admin: 10/31/16 12:03 Dose: Not Given Insulin Detemir (Levemir) 12 unit SC Q12 [facility] Last Admin: 10/31/16 12:02 Dose: Not Given Insulin Human Regular (Novolin R) 0 unit SC ACHS [facility] PRN Reason: Protocol Last Admin: 10/31/16 16:30 Dose: 3 unit Metoclopramide HCl (Reglan) 10 mg PO DAILY [facility] Last Admin: 10/31/16 12:03 Dose: Not Given Nifedipine (Procardia Xl) 60 mg PO BID [facility] Last Admin: 10/31/16 12:03 Dose: Not Given Ondansetron HCl (Zofran Inj) 4 mg IVP Q6H PRN PRN Reason: Nausea/Vomiting Last Admin: 10/31/16 09:44 Dose: 4 mg Rivaroxaban (Xarelto) 15 mg PO DAILY [facility] Results - Vital Signs Recent Vital Signs: Last Vital Signs Temp 98.7 F 10/31/16 15:00 Pulse 107 H 10/31/16 17:08 Resp 20 10/31/16 15:00 BP 169/81 H 10/31/16 15:00 Pulse Ox 99 10/31/16 15:00 - Labs Result Diagrams: 10/31/16 09:42 10/31/16 09:42 Labs: Laboratory Results - last 24 hr 10/30/16 10/31/16 10/31/16 21:47 09:42 11:42 WBC 10.0 RBC 2.43 L Hgb 7.5 L Hct 22.9 L MCV 94.3 MCH 31.0 MCHC 32.8 L RDW 15.3 H Plt Count 258 MPV 8.4 Neut % (Auto) 80.0 H Lymph % (Auto) 10.3 L [place] % (Auto) 5.1 Eos % (Auto) 3.6 Baso % (Auto) 1.0 Neut # 8.0 H Lymph # 1.0 [place] # 0.5 Eos # 0.4 Baso # 0.1 Sodium 133 Potassium 4.9 Chloride 87 L Carbon Dioxide 26 Anion Gap 25 H BUN 75 H Creatinine 9.0 H* Est GFR ( Amer) 6 Est GFR (Non-Af Amer) 5 POC Glucose (mg/dL) 316 H 149 H Random Glucose 217 H Calcium 7.1 L Phosphorus 4.9 H Magnesium 2.0 Total Bilirubin 0.6 AST 117 H ALT 113 H Alkaline Phosphatase 151 H Total Protein 7.5 Albumin 3.9 Globulin 3.6 Albumin/Globulin Ratio 1.1 10/31/16 16:11 WBC RBC Hgb Hct MCV MCH MCHC RDW Plt Count MPV Neut % (Auto) Lymph % (Auto) [place] % (Auto) Eos % (Auto) Baso % (Auto) Neut # Lymph # [place] # Eos # Baso # Sodium Potassium Chloride Carbon Dioxide Anion Gap BUN Creatinine Est GFR ( Amer) Est GFR (Non-Af Amer) POC Glucose (mg/dL) 256 H Random Glucose Calcium Phosphorus Magnesium Total Bilirubin AST ALT Alkaline Phosphatase Total Protein Albumin Globulin Albumin/Globulin Ratio Assessment & Plan - Assessment and Plan (Free Text) Assessment: ESRD ON HD M W F .. TO GIVE HD STAT NOW .. PT IS GETTING IT ANEMIA OF CKD .. I ORDERD EPO 10.000 + FERRLICIT 125 MG ON HD MULTIPLE CO MORBIDITIES P : C/O CURRENT CARE C/O PRESENT MANAGEMENT HD ALSO IN AM WED - Date & Time Date: 10/31/16 Time: 15:00
--- NOTE | 2016-10-31 19:54 | CARD ---
APPROVED REPORT EKG Measurement Heart [id number] <Conclusion> Sinus tachycardia Minimal voltage criteria for LVH, may be normal variant Borderline ECG
--- NOTE | 2016-11-01 07:56 | CP.PCM.PN ---
<Herman Cheema - Last Filed: 11/01/16 20:41> Subjective - Date & Time of Evaluation Date of Evaluation: 11/01/16 Time of Evaluation: 07:25 - Subjective Subjective: PGY1 Medicine Note - Dr. Wilkins Patient seen and examined at bedside. No overnight events per nursing. This morning, patient reports 1 episode of bilious emesis. Abdominal pain persists in light of patient being off of Dilaudid. Patient received dialysis yesterday. She is to resume her HD schedule MWF. She initially refused dialysis today, demanding pain medication, however Dr. Wilkins spoke with her and she accepted dialysis. Denies f/c, headache, dizziness, chest pain, SOB, d/c, or any additional acute complaints. Objective - Vital Signs/Intake and Output Vital Signs (last 24 hours): Temp Pulse Resp BP Pulse Ox 98.6 F 99 H 20 148/90 98 11/01/16 07:31 11/01/16 07:31 11/01/16 07:31 11/01/16 07:31 11/01/16 07:31 Intake and Output: 11/01/16 11/01/16 06:59 18:59 Intake Total 120 Balance 120 - Medications Medications: Current Medications Acetaminophen (Tylenol 325mg Tab) 650 mg PO Q6 PRN PRN Reason: Fever >100.4 F Alprazolam (Xanax) 1 mg PO Q4H PRN PRN Reason: Anxiety Last Admin: 11/01/16 05:51 Dose: 1 mg Clonidine HCl (Catapres) 0.3 mg PO TID [facility] Last Admin: 10/31/16 18:00 Dose: 0.3 mg Docusate Sodium (Colace) 100 mg PO BID [facility] Last Admin: 10/31/16 18:00 Dose: 100 mg Duloxetine HCl (Cymbalta) 60 mg PO BID [facility] Last Admin: 10/31/16 18:20 Dose: 60 mg Escitalopram Oxalate (Lexapro) 20 mg PO DAILY [facility] Last Admin: 10/31/16 17:45 Dose: 20 mg Famotidine (Pepcid) 20 mg PO DAILY [facility] Last Admin: 10/31/16 12:03 Dose: Not Given Ferric Sodium Gluconate Complex (Ferrlecit) 125 mg IVPB DAILY [facility] Stop: 11/08/16 10:01 Last Admin: 10/31/16 10:40 Dose: 125 mg Vancomycin HCl 1 gm/ Sodium (Chloride) 250 mls @ 166.7 mls/hr IVPB Q24H [facility] Last Admin: 10/31/16 22:05 Dose: 166.7 mls/hr Insulin Aspart (Novolog) 6 unit SC AC [facility] Last Admin: 10/31/16 16:30 Dose: 6 unit Insulin Detemir (Levemir) 12 unit SC Q12 [facility] Last Admin: 10/31/16 22:03 Dose: 12 unit Insulin Human Regular (Novolin R) 0 unit SC ACHS [facility] PRN Reason: Protocol Last Admin: 10/31/16 22:02 Dose: Not Given Metoclopramide HCl (Reglan) 10 mg PO DAILY [facility] Last Admin: 10/31/16 12:03 Dose: Not Given Nifedipine (Procardia Xl) 60 mg PO BID [facility] Last Admin: 10/31/16 18:00 Dose: 60 mg Ondansetron HCl (Zofran Inj) 4 mg IVP Q6H PRN PRN Reason: Nausea/Vomiting Last Admin: 11/01/16 05:51 Dose: 4 mg Rivaroxaban (Xarelto) 15 mg PO DAILY [facility] Last Admin: 10/31/16 17:30 Dose: 15 mg - Labs Labs: 10/31/16 09:42 10/31/16 09:42 - Additional Findings Additional findings: - Constitutional Appears: Non-toxic, No Acute Distress - Head Exam Head Exam: ATRAUMATIC, NORMAL INSPECTION, NORMOCEPHALIC - Eye Exam Eye Exam: EOMI, Normal appearance, PERRL - ENT Exam ENT Exam: Mucous Membranes Moist - Respiratory Exam Respiratory Exam: Clear to Auscultation Bilateral, NORMAL BREATHING PATTERN. absent: Rales, Rhonchi, Wheezes - Cardiovascular Exam Cardiovascular Exam: +S1, +S2. absent: Tachycardia, Diastolic murmur, Systolic Murmur - GI/Abdominal Exam GI & Abdominal Exam: Normal Bowel Sounds, Soft, Tenderness (diffuse). absent: Distended, Firm, Guarding - Extremities Exam Extremities exam: Positive for: pedal edema, pedal pulses present. Negative for : tenderness - right shoulder pain decreased today, mild. - Back Exam Back exam: NORMAL INSPECTION - Neurological Exam Neurological exam: Alert, CN II-XII Intact, Oriented x3 - Psychiatric Exam Psychiatric exam: Anxious - Skin Additional comments: multiple papular lesions with pustules to right upper extremity Assessment and Plan - Assessment and Plan (Free Text) Assessment: Bacteremia blood cx - Staph Aureus Blood cx (10/27) MRSA positive CXR - moderate CHF Vancomycin 1 gm IVPB q24h Tylenol 650 mg po q6h prn for fever Consult ID, Dr. Pinto. -mrsa sepsis source unclear r/o dialysis related, skin source, other may need KAMRAN to r/o endocarditis ESRD on HD 11/01: Refusing dialysis due to abdominal pain, eventually accepted to go. 10/31: received dialysis HD MWF Nephro Consult Dr. Phillips -EPO 10.000 + FERRLICIT 125 MG ON HD Abdominal Pain likely secondary to gastroparesis Renal diet Reglan 10 mg po daily Zofran 4 mg IVP q6h prn Per Dr. Wilkins - do not continue to give dilaudid -Benadryl 50mg PO Q6 PRN, pain -Xanax 1mg PO Q4H PRN, anxiety Hypertension Clonidine 0.3 mg po TID Procardia 60 mg BID Monitor DM Levemir 12 units SC Q12H Novolog 6 unit SC AC RISS Accuchecks Depression Lexapro 20mg PO daily Cymbalta 60mg PO BID Right shoulder pain Intermittent, improving CXR R shoulder- negative Prophylaxis SCD Colace 100 mg po BID START Xarelto 15mg daily STOP Heparin 5000 U SC q12 (patient can't tolerate injection) Pepcid 20 mg po daily <Cecil Wilkins Jr. - Last Filed: 11/04/16 12:04> Objective - Vital Signs/Intake and Output Vital Signs (last 24 hours): Temp Pulse Resp BP Pulse Ox 97.7 F 77 20 153/82 H 100 11/03/16 18:35 11/03/16 18:58 11/03/16 18:35 11/03/16 18:27 11/03/16 18:35 Intake and Output: 11/04/16 11/04/16 06:59 18:59 Intake Total 60 Balance 60 - Medications Medications: Current Medications Acetaminophen (Tylenol 325mg Tab) 650 mg PO Q6 PRN PRN Reason: Fever >100.4 F Alprazolam (Xanax) 1 mg PO Q4H PRN PRN Reason: Anxiety Last Admin: 11/04/16 03:22 Dose: 1 mg Clonidine HCl (Catapres) 0.3 mg PO TID [facility] Last Admin: 11/03/16 18:00 Dose: Not Given Diphenhydramine HCl (Benadryl) 50 mg IVP Q4H PRN PRN Reason: Agitation Last Admin: 11/04/16 11:39 Dose: 50 mg Docusate Sodium (Colace) 100 mg PO BID [facility] Last Admin: 11/03/16 19:15 Dose: Not Given Duloxetine HCl (Cymbalta) 60 mg PO BID [facility] Last Admin: 11/03/16 19:30 Dose: Not Given Epoetin James (Procrit) 10,000 unit IV MWF [facility] Last Admin: 11/03/16 15:26 Dose: 10,000 unit Escitalopram Oxalate (Lexapro) 20 mg PO DAILY [facility] Last Admin: 11/03/16 11:07 Dose: 20 mg Famotidine (Pepcid) 20 mg PO DAILY [facility] Last Admin: 11/03/16 10:57 Dose: 20 mg Ferric Sodium Gluconate Complex (Ferrlecit) 125 mg IVPB DAILY [facility] Stop: 11/08/16 10:01 Last Admin: 11/03/16 11:18 Dose: 125 mg Vancomycin HCl 1 gm/ Sodium (Chloride) 250 mls @ 166.7 mls/hr IVPB Q24H [facility] Last Admin: 11/03/16 19:00 Dose: Not Given Insulin Aspart (Novolog) 6 unit SC AC [facility] Last Admin: 11/03/16 21:01 Dose: Not Given Insulin Detemir (Levemir) 12 unit SC Q12 [facility] Last Admin: 11/03/16 22:00 Dose: Not Given Insulin Human Regular (Novolin R) 0 unit SC ACHS [facility] PRN Reason: Protocol Last Admin: 11/03/16 22:00 Dose: Not Given Lorazepam (Ativan) 2 mg IVP Q6H PRN PRN Reason: Anxiety Last Admin: 11/04/16 11:39 Dose: 2 mg Metoclopramide HCl (Reglan) 10 mg PO DAILY [facility] Last Admin: 11/03/16 10:57 Dose: 10 mg Nifedipine (Procardia Xl) 60 mg PO BID [facility] Last Admin: 11/03/16 10:58 Dose: Not Given Ondansetron HCl (Zofran Inj) 4 mg IVP Q6H PRN PRN Reason: Nausea/Vomiting Last Admin: 11/01/16 17:33 Dose: 4 mg - Labs Labs: 11/03/16 15:11 11/03/16 15:11 Attending/Attestation - Attestation I have personally seen and examined this patient.: Yes I have fully participated in the care of the patient.: Yes I have reviewed all pertinent clinical information, including history, physical exam and plan: Yes
[2016-11-01] MEDS: (Novolin R) Insulin Human Regular 100 units/ml vial SC SCH ×4 (08:04→21:54)
[2016-11-01] MEDS: (Novolog) Insulin Aspart, Recombinant 100 u/ml 10 ml vial SC SCH ×3 (08:05→16:30)
[2016-11-01] MEDS: Insulin Detemir 100 units/ml Vial (Levemir) SC SCH ×2 (10:53→21:56)
[2016-11-01] MEDS: NIFEdipine 60 mg ER Tab PO SCH ×3 (11:04→19:30)
[2016-11-01] MEDS: Ferric Sodium Gluconat Complex 62.5 mg/5 ml Vial IVPB SCH ×2 (11:11→17:31)
[2016-11-01] MEDS ORDERED: DiphenhydrAMINE 50 mg/ml Inj IVP STA ×2 (15:58→18:03)
[2016-11-01] MEDS ORDERED: Epoetin Alfa 10,000 unit/ml Dialysis SC SCH (17:30)
[2016-11-01] MEDS ORDERED: Epoetin Alfa 10,000 unit/ml Dialysis IV SCH (17:36)
--- NOTE | 2016-11-01 17:53 | CP.PCM.PN ---
Subjective - Date & Time of Evaluation Date of Evaluation: 11/01/16 Time of Evaluation: 09:00 - Subjective Subjective: events noted consider cynthia rx renewed discussed with dr ho del castillo Objective - Vital Signs/Intake and Output Vital Signs (last 24 hours): Temp Pulse Resp BP Pulse Ox 98.3 F 113 H 22 207/81 H 100 11/01/16 16:00 11/01/16 16:00 11/01/16 16:00 11/01/16 17:00 11/01/16 16:00 Intake and Output: 11/01/16 11/01/16 06:59 18:59 Intake Total 120 240 Output Total 100 Balance 120 140 - Medications Medications: Current Medications Acetaminophen (Tylenol 325mg Tab) 650 mg PO Q6 PRN PRN Reason: Fever >100.4 F Alprazolam (Xanax) 1 mg PO Q4H PRN PRN Reason: Anxiety Last Admin: 11/01/16 17:33 Dose: 1 mg Clonidine HCl (Catapres) 0.3 mg PO TID [facility] Last Admin: 11/01/16 14:15 Dose: Not Given Docusate Sodium (Colace) 100 mg PO BID [facility] Last Admin: 11/01/16 11:04 Dose: Not Given Duloxetine HCl (Cymbalta) 60 mg PO BID [facility] Last Admin: 11/01/16 11:04 Dose: 60 mg Epoetin James (Procrit) 10,000 unit IV MWF [facility] Escitalopram Oxalate (Lexapro) 20 mg PO DAILY [facility] Last Admin: 11/01/16 11:11 Dose: 20 mg Famotidine (Pepcid) 20 mg PO DAILY [facility] Last Admin: 11/01/16 11:04 Dose: 20 mg Ferric Sodium Gluconate Complex (Ferrlecit) 125 mg IVPB DAILY [facility] Stop: 11/08/16 10:01 Last Admin: 11/01/16 17:31 Dose: 125 mg Vancomycin HCl 1 gm/ Sodium (Chloride) 250 mls @ 166.7 mls/hr IVPB Q24H [facility] Last Admin: 10/31/16 22:05 Dose: 166.7 mls/hr Insulin Aspart (Novolog) 6 unit SC AC [facility] Last Admin: 11/01/16 11:25 Dose: Not Given Insulin Detemir (Levemir) 12 unit SC Q12 [facility] Last Admin: 11/01/16 10:53 Dose: Not Given Insulin Human Regular (Novolin R) 0 unit SC ACHS [facility] PRN Reason: Protocol Last Admin: 11/01/16 11:24 Dose: Not Given Metoclopramide HCl (Reglan) 10 mg PO DAILY [facility] Last Admin: 11/01/16 11:08 Dose: 10 mg Nifedipine (Procardia Xl) 60 mg PO BID [facility] Last Admin: 11/01/16 11:04 Dose: Not Given Ondansetron HCl (Zofran Inj) 4 mg IVP Q6H PRN PRN Reason: Nausea/Vomiting Last Admin: 11/01/16 17:33 Dose: 4 mg Rivaroxaban (Xarelto) 15 mg PO DAILY [facility] Last Admin: 11/01/16 11:08 Dose: 15 mg - Labs Labs: 10/31/16 09:42 10/31/16 09:42 - Constitutional Appears: Non-toxic, Chronically Ill - Head Exam Head Exam: NORMOCEPHALIC - Eye Exam Eye Exam: PERRL. absent: Scleral icterus - ENT Exam ENT Exam: Mucous Membranes Dry - Neck Exam Neck Exam: absent: Lymphadenopathy - Respiratory Exam Respiratory Exam: Decreased Breath Sounds, Clear to Ausculation Bilateral - Cardiovascular Exam Cardiovascular Exam: REGULAR RHYTHM, +S1, +S2 - GI/Abdominal Exam GI & Abdominal Exam: Distended, Soft Assessment and Plan (1) Accelerated essential hypertension Status: Acute (2) Bacteremia Status: Acute (3) Chest pain Status: Acute (4) Esophagitis Status: Acute (5) Fever Status: Acute (6) Positive blood culture Status: Acute
[2016-11-01] MEDS ORDERED: Epoetin Alfa 10,000 unit/ml Dialysis IV ONE (17:55)
[2016-11-02] MEDS ORDERED: DiphenhydrAMINE 50 mg/ml Inj IVP PRN (07:49)
[2016-11-02] MEDS: (Novolin R) Insulin Human Regular 100 units/ml vial SC SCH ×4 (07:58→22:00)
[2016-11-02] MEDS: (Novolog) Insulin Aspart, Recombinant 100 u/ml 10 ml vial SC SCH ×3 (07:58→16:30)
--- NOTE | 2016-11-02 08:16 | CP.PCM.PN ---
<Herman Cheema - Last Filed: 11/02/16 17:48> Subjective - Date & Time of Evaluation Date of Evaluation: 11/02/16 Time of Evaluation: 07:20 - Subjective Subjective: PGY1 Medicine Note - Dr. Wilkins Patient seen and examined at bedside. No overnight events per nursing. This morning, patient reports abdominal pain associated with gastroparesis persists and is near intolerable. Bilious vomit observed in bedside bucket. Patient rocking back and forth to deal with pain. Patient received dialysis yesterday. She is to resume her HD schedule MWF. Denies f/c, headache, dizziness, chest pain, SOB, d/c, or any additional acute complaints. Objective - Vital Signs/Intake and Output Vital Signs (last 24 hours): Temp Pulse Resp BP Pulse Ox 98.4 F 92 H 20 129/82 98 11/02/16 00:47 11/02/16 00:47 11/02/16 00:47 11/02/16 00:47 11/02/16 00:47 Intake and Output: 11/02/16 11/02/16 06:59 18:59 Intake Total 550 240 Balance 550 240 - Medications Medications: Current Medications Acetaminophen (Tylenol 325mg Tab) 650 mg PO Q6 PRN PRN Reason: Fever >100.4 F Alprazolam (Xanax) 1 mg PO Q4H PRN PRN Reason: Anxiety Last Admin: 11/02/16 06:49 Dose: 1 mg Clonidine HCl (Catapres) 0.3 mg PO TID [facility] Last Admin: 11/01/16 18:00 Dose: 0.3 mg Diphenhydramine HCl (Benadryl) 50 mg IVP Q6H PRN PRN Reason: Agitation Last Admin: 11/02/16 08:07 Dose: 50 mg Docusate Sodium (Colace) 100 mg PO BID [facility] Last Admin: 11/01/16 18:00 Dose: 100 mg Duloxetine HCl (Cymbalta) 60 mg PO BID [facility] Last Admin: 11/01/16 18:00 Dose: 60 mg Epoetin James (Procrit) 10,000 unit IV [facility] [place] Escitalopram Oxalate (Lexapro) 20 mg PO DAILY [facility] Last Admin: 11/01/16 11:11 Dose: 20 mg Famotidine (Pepcid) 20 mg PO DAILY [facility] Last Admin: 11/01/16 11:04 Dose: 20 mg Ferric Sodium Gluconate Complex (Ferrlecit) 125 mg IVPB DAILY [facility] Stop: 11/08/16 10:01 Last Admin: 11/01/16 17:31 Dose: 125 mg Vancomycin HCl 1 gm/ Sodium (Chloride) 250 mls @ 166.7 mls/hr IVPB Q24H [facility] Last Admin: 11/01/16 19:00 Dose: 166.7 mls/hr Insulin Aspart (Novolog) 6 unit SC AC [facility] Last Admin: 11/02/16 07:58 Dose: Not Given Insulin Detemir (Levemir) 12 unit SC Q12 [facility] Last Admin: 11/01/16 21:56 Dose: 12 unit Insulin Human Regular (Novolin R) 0 unit SC ACHS [facility] PRN Reason: Protocol Last Admin: 11/02/16 07:58 Dose: Not Given Metoclopramide HCl (Reglan) 10 mg PO DAILY [facility] Last Admin: 11/01/16 11:08 Dose: 10 mg Nifedipine (Procardia Xl) 60 mg PO BID [facility] Last Admin: 11/01/16 18:00 Dose: 60 mg Ondansetron HCl (Zofran Inj) 4 mg IVP Q6H PRN PRN Reason: Nausea/Vomiting Last Admin: 11/01/16 17:33 Dose: 4 mg Rivaroxaban (Xarelto) 15 mg PO DAILY [facility] Last Admin: 11/01/16 11:08 Dose: 15 mg - Labs Labs: 10/31/16 09:42 10/31/16 09:42 - Additional Findings Additional findings: - Constitutional Appears: Non-toxic, No Acute Distress - Head Exam Head Exam: ATRAUMATIC, NORMAL INSPECTION, NORMOCEPHALIC - Eye Exam Eye Exam: EOMI, Normal appearance, PERRL - ENT Exam ENT Exam: Mucous Membranes Moist - Respiratory Exam Respiratory Exam: Clear to Auscultation Bilateral, NORMAL BREATHING PATTERN. absent: Rales, Rhonchi, Wheezes - Cardiovascular Exam Cardiovascular Exam: +S1, +S2. absent: Tachycardia, Diastolic murmur, Systolic Murmur - GI/Abdominal Exam GI & Abdominal Exam: Normal Bowel Sounds, Soft, Tenderness (diffuse). absent: Distended, Firm, Guarding - Extremities Exam Extremities exam: Positive for: pedal edema, pedal pulses present. Negative for : tenderness - right shoulder pain resolved - Back Exam Back exam: NORMAL INSPECTION - Neurological Exam Neurological exam: Alert, CN II-XII Intact, Oriented x3 - Psychiatric Exam Psychiatric exam: Anxious - Skin Additional comments: multiple papular lesions with pustules to right upper extremity Assessment and Plan - Assessment and Plan (Free Text) Assessment: Bacteremia blood cx - Staph Aureus Vancomycin 1 gm IVPB q24h (started 10/31) Blood cx (10/27) MRSA positive CXR - moderate CHF Tylenol 650 mg po q6h prn for fever Consult ID, Dr. Pinto. -mrsa sepsis source unclear r/o dialysis related, skin source, other may need KAMRAN to r/o endocarditis ESRD on HD HD MWF and Sat 11/02: Benadryl 50mg IVP Q4H PRN; Ativan 2mg IVP Q6H PRN 11/01: Refusing dialysis due to abdominal pain, eventually accepted to go. 10/31: received dialysis Nephro Consult Dr. Phillips -EPO 10.000 + FERRLICIT 125 MG ON HD Anemia -Hgb 7.5 today -2units PRBC to be transfused with Dialysis 11/[address] Wilkins - do not continue to give dilaudid -Benadryl 50mg IVP Q4H PRN, agitation -Xanax 1mg PO Q4H PRN, anxiety -Ativan 2mg IVP Q6H PRN, agitation likely secondary to gastroparesis Renal diet Reglan 10 mg po daily Zofran 4 mg IVP q6h prn Hypertension 11/02: 129/82, BP fluctuates Clonidine 0.3 mg po TID Procardia 60 mg BID Monitor DM Levemir 12 units SC Q12H Novolog 6 unit SC AC RISS Accuchecks Depression Lexapro 20mg PO daily Cymbalta 60mg PO BID Right shoulder pain Intermittent, improving CXR R shoulder- negative Prophylaxis SCD Colace 100 mg po BID Xarelto 15mg daily STOP Heparin 5000 U SC q12 (patient can't tolerate injection) Pepcid 20 mg po daily [All management per Dr. Wilkins] <Cecil Wilkins Jr. - Last Filed: 11/04/16 12:05> Objective - Vital Signs/Intake and Output Vital Signs (last 24 hours): Temp Pulse Resp BP Pulse Ox 97.7 F 77 20 153/82 H 100 11/03/16 18:35 11/03/16 18:58 11/03/16 18:35 11/03/16 18:27 11/03/16 18:35 Intake and Output: 11/04/16 11/04/16 06:59 18:59 Intake Total 60 Balance 60 - Medications Medications: Current Medications Acetaminophen (Tylenol 325mg Tab) 650 mg PO Q6 PRN PRN Reason: Fever >100.4 F Alprazolam (Xanax) 1 mg PO Q4H PRN PRN Reason: Anxiety Last Admin: 11/04/16 03:22 Dose: 1 mg Clonidine HCl (Catapres) 0.3 mg PO TID [facility] Last Admin: 11/03/16 18:00 Dose: Not Given Diphenhydramine HCl (Benadryl) 50 mg IVP Q4H PRN PRN Reason: Agitation Last Admin: 11/04/16 11:39 Dose: 50 mg Docusate Sodium (Colace) 100 mg PO BID [facility] Last Admin: 11/03/16 19:15 Dose: Not Given Duloxetine HCl (Cymbalta) 60 mg PO BID [facility] Last Admin: 11/03/16 19:30 Dose: Not Given Epoetin James (Procrit) 10,000 unit IV MWF [facility] Last Admin: 11/03/16 15:26 Dose: 10,000 unit Escitalopram Oxalate (Lexapro) 20 mg PO DAILY [facility] Last Admin: 11/03/16 11:07 Dose: 20 mg Famotidine (Pepcid) 20 mg PO DAILY [facility] Last Admin: 11/03/16 10:57 Dose: 20 mg Ferric Sodium Gluconate Complex (Ferrlecit) 125 mg IVPB DAILY [facility] Stop: 11/08/16 10:01 Last Admin: 11/03/16 11:18 Dose: 125 mg Vancomycin HCl 1 gm/ Sodium (Chloride) 250 mls @ 166.7 mls/hr IVPB Q24H [facility] Last Admin: 11/03/16 19:00 Dose: Not Given Insulin Aspart (Novolog) 6 unit SC AC [facility] Last Admin: 11/03/16 21:01 Dose: Not Given Insulin Detemir (Levemir) 12 unit SC Q12 [facility] Last Admin: 11/03/16 22:00 Dose: Not Given Insulin Human Regular (Novolin R) 0 unit SC ACHS [facility] PRN Reason: Protocol Last Admin: 11/03/16 22:00 Dose: Not Given Lorazepam (Ativan) 2 mg IVP Q6H PRN PRN Reason: Anxiety Last Admin: 11/04/16 11:39 Dose: 2 mg Metoclopramide HCl (Reglan) 10 mg PO DAILY [facility] Last Admin: 11/03/16 10:57 Dose: 10 mg Nifedipine (Procardia Xl) 60 mg PO BID [facility] Last Admin: 11/03/16 10:58 Dose: Not Given Ondansetron HCl (Zofran Inj) 4 mg IVP Q6H PRN PRN Reason: Nausea/Vomiting Last Admin: 11/01/16 17:33 Dose: 4 mg - Labs Labs: 11/03/16 15:11 11/03/16 15:11 Attending/Attestation - Attestation I have personally seen and examined this patient.: Yes I have fully participated in the care of the patient.: Yes I have reviewed all pertinent clinical information, including history, physical exam and plan: Yes
[2016-11-02] MEDS: Ferric Sodium Gluconat Complex 62.5 mg/5 ml Vial IVPB SCH (10:34)
[2016-11-02] MEDS: Insulin Detemir 100 units/ml Vial (Levemir) SC SCH ×2 (10:35→22:00)
[2016-11-02] MEDS: NIFEdipine 60 mg ER Tab PO SCH ×2 (10:43→18:00)
--- NOTE | 2016-11-02 15:58 | CP.PCM.PN ---
Subjective - Date & Time of Evaluation Date of Evaluation: 11/02/16 Time of Evaluation: 15:00 - Subjective Subjective: Aliza on renal f/u Recieved HD yesterday with UF of 4 L recieved HD the day before with UF of 5 L Patient seen and examined at bedside. No overnight events per nursing. This morning, patient reports abdominal pain associated with gastroparesis persists and is near intolerable. Bilious vomit observed in bedside bucket. Patient rocking back and forth to deal with pain. Patient received dialysis yesterday. She is to resume her HD schedule MWF. Denies f/c, headache, dizziness, chest pain, SOB, d/c, or any additional acute complaints. Objective - Vital Signs/Intake and Output Vital Signs (last 24 hours): Temp Pulse Resp BP Pulse Ox 98.4 F 92 H 20 129/82 98 11/02/16 00:47 11/02/16 08:43 11/02/16 00:47 11/02/16 00:47 11/02/16 00:47 Intake and Output: 11/02/16 11/02/16 06:59 18:59 Intake Total 550 480 Output Total 10 Balance 550 470 - Medications Medications: Current Medications Acetaminophen (Tylenol 325mg Tab) 650 mg PO Q6 PRN PRN Reason: Fever >100.4 F Alprazolam (Xanax) 1 mg PO Q4H PRN PRN Reason: Anxiety Last Admin: 11/02/16 10:41 Dose: 1 mg Clonidine HCl (Catapres) 0.3 mg PO TID [facility] Last Admin: 11/02/16 13:25 Dose: 0.3 mg Diphenhydramine HCl (Benadryl) 50 mg IVP Q6H PRN PRN Reason: Agitation Last Admin: 11/02/16 08:07 Dose: 50 mg Docusate Sodium (Colace) 100 mg PO BID [facility] Last Admin: 11/02/16 10:34 Dose: Not Given Duloxetine HCl (Cymbalta) 60 mg PO BID [facility] Last Admin: 11/02/16 10:41 Dose: 60 mg Epoetin James (Procrit) 10,000 unit [place] [facility] [place] Escitalopram Oxalate (Lexapro) 20 mg PO DAILY [facility] Last Admin: 11/02/16 10:42 Dose: 20 mg Famotidine (Pepcid) 20 mg PO DAILY [facility] Last Admin: 11/02/16 10:43 Dose: 20 mg Ferric Sodium Gluconate Complex (Ferrlecit) 125 mg IVPB DAILY [facility] Stop: 11/08/16 10:01 Last Admin: 11/02/16 10:34 Dose: Not Given Vancomycin HCl 1 gm/ Sodium (Chloride) 250 mls @ 166.7 mls/hr IVPB Q24H [facility] Last Admin: 11/01/16 19:00 Dose: 166.7 mls/hr Insulin Aspart (Novolog) 6 unit SC AC [facility] Last Admin: 11/02/16 12:13 Dose: 6 unit Insulin Detemir (Levemir) 12 unit SC Q12 [facility] Last Admin: 11/02/16 10:35 Dose: Not Given Insulin Human Regular (Novolin R) 0 unit SC ACHS [facility] PRN Reason: Protocol Last Admin: 11/02/16 12:13 Dose: 3 unit Metoclopramide HCl (Reglan) 10 mg PO DAILY [facility] Last Admin: 11/02/16 10:43 Dose: 10 mg Nifedipine (Procardia Xl) 60 mg PO BID [facility] Last Admin: 11/02/16 10:43 Dose: 60 mg Ondansetron HCl (Zofran Inj) 4 mg IVP Q6H PRN PRN Reason: Nausea/Vomiting Last Admin: 11/01/16 17:33 Dose: 4 mg Rivaroxaban (Xarelto) 15 mg PO DAILY [facility] Last Admin: 11/02/16 10:42 Dose: 15 mg - Labs Labs: 10/31/16 09:42 10/31/16 09:42 Assessment and Plan - Assessment and Plan (Free Text) Assessment: ESRD ON HD M W F AND SAT ANEMIA OF CKD ON EPO + FERRLICIT C/O CURRENT CARE
[2016-11-02] MEDS: DiphenhydrAMINE 50 mg/ml Inj IVP PRN ×2 (17:05→21:48)
[2016-11-02 21:43] VITALS: O2SAT 100
[2016-11-03] MEDS: DiphenhydrAMINE 50 mg/ml Inj IVP PRN ×5 (01:54→20:58)
[2016-11-03] MEDS: (Novolog) Insulin Aspart, Recombinant 100 u/ml 10 ml vial SC SCH ×3 (07:30→21:01)
[2016-11-03] MEDS: (Novolin R) Insulin Human Regular 100 units/ml vial SC SCH ×4 (07:30→22:00)
[2016-11-03] MEDS ORDERED: Epoetin Alfa 10,000 unit/ml Dialysis SC SCH (09:00)
--- NOTE | 2016-11-03 10:26 | CP.PCM.PN ---
<J Luis Lind - Last Filed: 11/03/16 17:09> Subjective - Date & Time of Evaluation Date of Evaluation: 11/03/16 Time of Evaluation: 10:20 - Subjective Subjective: PGY-[address] Wilkins's service Pt seen and examined at bedside. Pt observed to be sitting up in bed. She reports abdominal pain throughout the night. No acute overnight events. Denies fevers, chills, chest pain, palpitations, sob. Admits to nausea and vomiting. Pt for dialysis today Objective - Vital Signs/Intake and Output Vital Signs (last 24 hours): Temp Pulse Resp BP Pulse Ox 98.1 F 79 20 136/82 100 11/02/16 21:43 11/02/16 21:43 11/02/16 21:43 11/02/16 21:43 11/02/16 21:43 Intake and Output: 11/03/16 11/03/16 06:59 18:59 Intake Total 180 Balance 180 - Medications Medications: Current Medications Acetaminophen (Tylenol 325mg Tab) 650 mg PO Q6 PRN PRN Reason: Fever >100.4 F Alprazolam (Xanax) 1 mg PO Q4H PRN PRN Reason: Anxiety Last Admin: 11/03/16 05:45 Dose: 1 mg Clonidine HCl (Catapres) 0.3 mg PO TID [facility] Last Admin: 11/02/16 18:08 Dose: 0.3 mg Diphenhydramine HCl (Benadryl) 50 mg IVP Q4H PRN PRN Reason: Agitation Last Admin: 11/03/16 05:45 Dose: 50 mg Docusate Sodium (Colace) 100 mg PO BID [facility] Last Admin: 11/02/16 18:08 Dose: 100 mg Duloxetine HCl (Cymbalta) 60 mg PO BID [facility] Last Admin: 11/02/16 18:08 Dose: 60 mg Epoetin James (Procrit) 10,000 unit IV MWF [facility] Escitalopram Oxalate (Lexapro) 20 mg PO DAILY [facility] Last Admin: 11/02/16 10:42 Dose: 20 mg Famotidine (Pepcid) 20 mg PO DAILY [facility] Last Admin: 11/02/16 10:43 Dose: 20 mg Ferric Sodium Gluconate Complex (Ferrlecit) 125 mg IVPB DAILY [facility] Stop: 11/08/16 10:01 Last Admin: 11/02/16 10:34 Dose: Not Given Vancomycin HCl 1 gm/ Sodium (Chloride) 250 mls @ 166.7 mls/hr IVPB Q24H [facility] Last Admin: 11/02/16 19:00 Dose: 166.7 mls/hr Insulin Aspart (Novolog) 6 unit SC AC [facility] Last Admin: 11/02/16 16:30 Dose: 6 unit Insulin Detemir (Levemir) 12 unit SC Q12 [facility] Last Admin: 11/02/16 22:00 Dose: 12 unit Insulin Human Regular (Novolin R) 0 unit SC ACHS [facility] PRN Reason: Protocol Last Admin: 11/02/16 22:00 Dose: 2 unit Lorazepam (Ativan) 2 mg IVP Q6H PRN PRN Reason: Anxiety Last Admin: 11/03/16 05:45 Dose: 2 mg Metoclopramide HCl (Reglan) 10 mg PO DAILY [facility] Last Admin: 11/02/16 10:43 Dose: 10 mg Nifedipine (Procardia Xl) 60 mg PO BID [facility] Last Admin: 11/02/16 18:00 Dose: 60 mg Ondansetron HCl (Zofran Inj) 4 mg IVP Q6H PRN PRN Reason: Nausea/Vomiting Last Admin: 11/01/16 17:33 Dose: 4 mg Rivaroxaban (Xarelto) 15 mg PO DAILY [facility] Last Admin: 11/02/16 10:42 Dose: 15 mg - Labs Labs: 10/31/16 09:42 10/31/16 09:42 - Constitutional Appears: Chronically Ill - Head Exam Head Exam: ATRAUMATIC, NORMOCEPHALIC - Eye Exam Eye Exam: Normal appearance - ENT Exam ENT Exam: Mucous Membranes Moist - Respiratory Exam Respiratory Exam: Clear to Ausculation Bilateral, NORMAL BREATHING PATTERN - Cardiovascular Exam Cardiovascular Exam: +S1, +S2 - GI/Abdominal Exam GI & Abdominal Exam: Soft, Tenderness, Normal Bowel Sounds - Neurological Exam Neurological Exam: Alert, Awake Assessment and Plan - Assessment and Plan (Free Text) Assessment: Bacteremia blood cx 10/30 - MRSA positive Vancomycin 1 gm IVPB q24h (started 10/31) Blood cx (10/27) MRSA positive CXR - moderate CHF Tylenol 650 mg po q6h prn for fever Consult ID, Dr. Pinto. -mrsa sepsis source unclear r/o dialysis related, skin source, other may need K[facility] to r/o endocarditis ESRD on HD HD MWF and Sat 11/02: Benadryl 50mg IVP Q4H PRN; Ativan 2mg IVP Q6H PRN 11/01: Refusing dialysis due to abdominal pain, eventually accepted to go. 10/31: received dialysis Nephro Consult Dr. Phillips -EPO 10.000 + FERRLICIT 125 MG ON HD Anemia -Hgb 7.5 today -2units PRBC to be transfused with Dialysis 11/[address] Wilkins - do not continue to give dilaudid -Benadryl 50mg IVP Q4H PRN, agitation -Xanax 1mg PO Q4H PRN, anxiety -Ativan 2mg IVP Q6H PRN, agitation likely secondary to gastroparesis Renal diet Reglan 10 mg po daily Zofran 4 mg IVP q6h prn Hypertension 11/02: 129/82, BP fluctuates Clonidine 0.3 mg po TID Procardia 60 mg BID Monitor DM Levemir 12 units SC Q12H Novolog 6 unit SC AC RISS Accuchecks Depression Lexapro 20mg PO daily Cymbalta 60mg PO BID Right shoulder pain Intermittent, improving CXR R shoulder- negative Prophylaxis SCD Colace 100 mg po BID Xarelto 15mg daily STOP Heparin 5000 U SC q12 (patient can't tolerate injection) Pepcid 20 mg po daily [All management per Dr. Wilkins] <Cecil Wilkins Jr. - Last Filed: 11/04/16 12:07> Objective - Vital Signs/Intake and Output Vital Signs (last 24 hours): Temp Pulse Resp BP Pulse Ox 97.7 F 77 20 153/82 H 100 11/03/16 18:35 11/03/16 18:58 11/03/16 18:35 11/03/16 18:27 11/03/16 18:35 Intake and Output: 11/04/16 11/04/16 06:59 18:59 Intake Total 60 Balance 60 - Medications Medications: Current Medications Acetaminophen (Tylenol 325mg Tab) 650 mg PO Q6 PRN PRN Reason: Fever >100.4 F Alprazolam (Xanax) 1 mg PO Q4H PRN PRN Reason: Anxiety Last Admin: 11/04/16 03:22 Dose: 1 mg Clonidine HCl (Catapres) 0.3 mg PO TID [facility] Last Admin: 11/03/16 18:00 Dose: Not Given Diphenhydramine HCl (Benadryl) 50 mg IVP Q4H PRN PRN Reason: Agitation Last Admin: 11/04/16 11:39 Dose: 50 mg Docusate Sodium (Colace) 100 mg PO BID [facility] Last Admin: 11/03/16 19:15 Dose: Not Given Duloxetine HCl (Cymbalta) 60 mg PO BID [facility] Last Admin: 11/03/16 19:30 Dose: Not Given Epoetin James (Procrit) 10,000 unit IV MWF [facility] Last Admin: 11/03/16 15:26 Dose: 10,000 unit Escitalopram Oxalate (Lexapro) 20 mg PO DAILY [facility] Last Admin: 11/03/16 11:07 Dose: 20 mg Famotidine (Pepcid) 20 mg PO DAILY [facility] Last Admin: 11/03/16 10:57 Dose: 20 mg Ferric Sodium Gluconate Complex (Ferrlecit) 125 mg IVPB DAILY [facility] Stop: 11/08/16 10:01 Last Admin: 11/03/16 11:18 Dose: 125 mg Vancomycin HCl 1 gm/ Sodium (Chloride) 250 mls @ 166.7 mls/hr IVPB Q24H [facility] Last Admin: 11/03/16 19:00 Dose: Not Given Insulin Aspart (Novolog) 6 unit SC AC [facility] Last Admin: 11/03/16 21:01 Dose: Not Given Insulin Detemir (Levemir) 12 unit SC Q12 [facility] Last Admin: 11/03/16 22:00 Dose: Not Given Insulin Human Regular (Novolin R) 0 unit SC ACHS [facility] PRN Reason: Protocol Last Admin: 11/03/16 22:00 Dose: Not Given Lorazepam (Ativan) 2 mg IVP Q6H PRN PRN Reason: Anxiety Last Admin: 11/04/16 11:39 Dose: 2 mg Metoclopramide HCl (Reglan) 10 mg PO DAILY [facility] Last Admin: 11/03/16 10:57 Dose: 10 mg Nifedipine (Procardia Xl) 60 mg PO BID [facility] Last Admin: 11/03/16 10:58 Dose: Not Given Ondansetron HCl (Zofran Inj) 4 mg IVP Q6H PRN PRN Reason: Nausea/Vomiting Last Admin: 11/01/16 17:33 Dose: 4 mg - Labs Labs: 11/03/16 15:11 11/03/16 15:11 Attending/Attestation - Attestation I have personally seen and examined this patient.: Yes I have fully participated in the care of the patient.: Yes I have reviewed all pertinent clinical information, including history, physical exam and plan: Yes
[2016-11-03] MEDS: NIFEdipine 60 mg ER Tab PO SCH (10:58)
[2016-11-03] MEDS: Insulin Detemir 100 units/ml Vial (Levemir) SC SCH ×2 (11:07→22:00)
[2016-11-03] MEDS: Ferric Sodium Gluconat Complex 62.5 mg/5 ml Vial IVPB SCH (11:18)
[2016-11-03 15:18] LABS: BASO # 0.1 K/uL (0.0-0.2); BASO % 1.5 % (0.0-2.0); EOS # 0.6 K/uL (0.0-0.7); EOS % 7.5 % (0.0-4.0); HEMATOCRIT 23.2 % (34.0-47.0); LYMPH # 1.6 K/uL (1.0-4.3); MEAN CELL VOLUME 95.9 fL (81.0-99.0); MEAN CORPUSCULAR HEMOGLOBIN 31.2 pg (27.0-31.0); MEAN CORPUSCULAR HGB CONC 32.5 g/dL (33.0-37.0); MEAN PLATELET VOLUME 7.8 fL (7.2-11.7); MONO # 0.7 K/uL (0.0-0.8); RED CELL DISTRIBUTION WIDTH 15.4 % (11.5-14.5); WHITE BLOOD COUNT 7.6 K/uL (4.8-10.8)
[2016-11-03 15:28] LABS: POTASSIUM 4.2 mmol/L (3.6-5.2)
[2016-11-03 15:30] LABS: BILIRUBIN,TOTAL 0.5 mg/dL (0.2-1.3); PHOSPHOROUS 6.9 mg/dL (2.5-4.5)
[2016-11-03 15:31] LABS: MAGNESIUM 1.9 mg/dL (1.6-2.3)
[2016-11-03] MEDS ORDERED: Dextrose 50% SYRINGE Inj (50 ml) IV STA (16:50)
--- NOTE | 2016-11-03 17:01 | CP.PCM.PN ---
Subjective - Date & Time of Evaluation Date of Evaluation: 11/03/16 Time of Evaluation: 08:00 - Subjective Subjective: still c/o abd pain blood c/s + MRSA source unclear consider [facility] will send repeat c/s may need GI jose;/ CT abd may have opiate withdrawl ? Objective - Vital Signs/Intake and Output Vital Signs (last 24 hours): Temp Pulse Resp BP Pulse Ox 97.4 F L 78 20 169/97 H 100 11/03/16 16:54 11/03/16 16:54 11/03/16 16:54 11/03/16 16:54 11/03/16 15:05 Intake and Output: 11/03/16 11/03/16 06:59 18:59 Intake Total 180 675 Balance 180 675 - Medications Medications: Current Medications Acetaminophen (Tylenol 325mg Tab) 650 mg PO Q6 PRN PRN Reason: Fever >100.4 F Alprazolam (Xanax) 1 mg PO Q4H PRN PRN Reason: Anxiety Last Admin: 11/03/16 10:57 Dose: 1 mg Clonidine HCl (Catapres) 0.3 mg PO TID [facility] Last Admin: 11/03/16 15:43 Dose: Not Given Diphenhydramine HCl (Benadryl) 50 mg IVP Q4H PRN PRN Reason: Agitation Last Admin: 11/03/16 15:22 Dose: 50 mg Docusate Sodium (Colace) 100 mg PO BID [facility] Last Admin: 11/03/16 10:57 Dose: 100 mg Duloxetine HCl (Cymbalta) 60 mg PO BID [facility] Last Admin: 11/03/16 10:58 Dose: 60 mg Epoetin James (Procrit) 10,000 unit IV MWF [facility] Last Admin: 11/03/16 15:26 Dose: 10,000 unit Escitalopram Oxalate (Lexapro) 20 mg PO DAILY [facility] Last Admin: 11/03/16 11:07 Dose: 20 mg Famotidine (Pepcid) 20 mg PO DAILY [facility] Last Admin: 11/03/16 10:57 Dose: 20 mg Ferric Sodium Gluconate Complex (Ferrlecit) 125 mg IVPB DAILY [facility] Stop: 11/08/16 10:01 Last Admin: 11/03/16 11:18 Dose: 125 mg Vancomycin HCl 1 gm/ Sodium (Chloride) 250 mls @ 166.7 mls/hr IVPB Q24H [facility] Last Admin: 11/02/16 19:00 Dose: 166.7 mls/hr Insulin Aspart (Novolog) 6 unit SC AC [facility] Last Admin: 11/03/16 12:34 Dose: Not Given Insulin Detemir (Levemir) 12 unit SC Q12 [facility] Last Admin: 11/03/16 11:07 Dose: 12 unit Insulin Human Regular (Novolin R) 0 unit SC ACHS [facility] PRN Reason: Protocol Last Admin: 11/03/16 12:33 Dose: Not Given Lorazepam (Ativan) 2 mg IVP Q6H PRN PRN Reason: Anxiety Last Admin: 11/03/16 05:45 Dose: 2 mg Metoclopramide HCl (Reglan) 10 mg PO DAILY [facility] Last Admin: 11/03/16 10:57 Dose: 10 mg Nifedipine (Procardia Xl) 60 mg PO BID [facility] Last Admin: 11/03/16 10:58 Dose: Not Given Ondansetron HCl (Zofran Inj) 4 mg IVP Q6H PRN PRN Reason: Nausea/Vomiting Last Admin: 11/01/16 17:33 Dose: 4 mg Rivaroxaban (Xarelto) 15 mg PO DAILY [facility] Last Admin: 11/03/16 11:00 Dose: 15 mg - Labs Labs: 11/03/16 15:11 11/03/16 15:11 - Constitutional Appears: Chronically Ill - Head Exam Head Exam: NORMAL INSPECTION - Eye Exam Eye Exam: PERRL. absent: Scleral icterus - Neck Exam Neck Exam: absent: Lymphadenopathy - Respiratory Exam Respiratory Exam: Decreased Breath Sounds, Clear to Ausculation Bilateral - Cardiovascular Exam Cardiovascular Exam: REGULAR RHYTHM, +S1, +S2 - GI/Abdominal Exam GI & Abdominal Exam: Distended, Soft - Rectal Exam Rectal Exam: Deferred - Exam Exam: NORMAL INSPECTION - Extremities Exam Extremities Exam: absent: Pedal Edema - Back Exam Back Exam: absent: CVA tenderness (L), CVA tenderness (R) - Neurological Exam Neurological Exam: Alert, Awake, Oriented x3 - Psychiatric Exam Psychiatric exam: Depressed - Skin Skin Exam: Dry Assessment and Plan (1) Accelerated essential hypertension Status: Acute (2) Bacteremia Status: Acute (3) Chest pain Status: Acute (4) Esophagitis Status: Acute (5) Fever Status: Acute (6) Positive blood culture Status: Acute
[2016-11-03] MEDS ORDERED: DiphenhydrAMINE 50 mg/ml Inj IVP STA (18:01)
--- NOTE | 2016-11-03 18:41 | CP.PCM.PN ---
Subjective - Date & Time of Evaluation Date of Evaluation: 11/03/16 Time of Evaluation: 15:00 - Subjective Subjective: SEEN ON RENAL F/U SEEN ON HD REQUESTING BENADRYL IVP WHILE ON HD APPEARS BETTER Objective - Vital Signs/Intake and Output Vital Signs (last 24 hours): Temp Pulse Resp BP Pulse Ox 97.7 F 77 20 153/82 H 100 11/03/16 18:27 11/03/16 18:27 11/03/16 18:27 11/03/16 18:27 11/03/16 15:05 Intake and Output: 11/03/16 11/03/16 06:59 18:59 Intake Total 180 1050 Balance 180 1050 - Medications Medications: Current Medications Acetaminophen (Tylenol 325mg Tab) 650 mg PO Q6 PRN PRN Reason: Fever >100.4 F Alprazolam (Xanax) 1 mg PO Q4H PRN PRN Reason: Anxiety Last Admin: 11/03/16 10:57 Dose: 1 mg Clonidine HCl (Catapres) 0.3 mg PO TID [facility] Last Admin: 11/03/16 15:43 Dose: Not Given Diphenhydramine HCl (Benadryl) 50 mg IVP Q4H PRN PRN Reason: Agitation Last Admin: 11/03/16 15:22 Dose: 50 mg Docusate Sodium (Colace) 100 mg PO BID [facility] Last Admin: 11/03/16 10:57 Dose: 100 mg Duloxetine HCl (Cymbalta) 60 mg PO BID [facility] Last Admin: 11/03/16 10:58 Dose: 60 mg Epoetin James (Procrit) 10,000 unit IV MWF [facility] Last Admin: 11/03/16 15:26 Dose: 10,000 unit Escitalopram Oxalate (Lexapro) 20 mg PO DAILY [facility] Last Admin: 11/03/16 11:07 Dose: 20 mg Famotidine (Pepcid) 20 mg PO DAILY [facility] Last Admin: 11/03/16 10:57 Dose: 20 mg Ferric Sodium Gluconate Complex (Ferrlecit) 125 mg IVPB DAILY [facility] Stop: 11/08/16 10:01 Last Admin: 11/03/16 11:18 Dose: 125 mg Vancomycin HCl 1 gm/ Sodium (Chloride) 250 mls @ 166.7 mls/hr IVPB Q24H [facility] Last Admin: 11/02/16 19:00 Dose: 166.7 mls/hr Insulin Aspart (Novolog) 6 unit SC AC [facility] Last Admin: 11/03/16 12:34 Dose: Not Given Insulin Detemir (Levemir) 12 unit SC Q12 [facility] Last Admin: 11/03/16 11:07 Dose: 12 unit Insulin Human Regular (Novolin R) 0 unit SC ACHS [facility] PRN Reason: Protocol Last Admin: 11/03/16 12:33 Dose: Not Given Lorazepam (Ativan) 2 mg IVP Q6H PRN PRN Reason: Anxiety Last Admin: 11/03/16 18:32 Dose: 2 mg Metoclopramide HCl (Reglan) 10 mg PO DAILY [facility] Last Admin: 11/03/16 10:57 Dose: 10 mg Nifedipine (Procardia Xl) 60 mg PO BID [facility] Last Admin: 11/03/16 10:58 Dose: Not Given Ondansetron HCl (Zofran Inj) 4 mg IVP Q6H PRN PRN Reason: Nausea/Vomiting Last Admin: 11/01/16 17:33 Dose: 4 mg - Labs Labs: 11/03/16 15:11 11/03/16 15:11 Assessment and Plan - Assessment and Plan (Free Text) Assessment: ESRD ON HD M W F AND SAT ANEMIA OF CKD .. RECIEVING 2 U PRBC ON HD MULTIPLE CO MORBIDITIES C/O CURRENT CARE
[2016-11-04] MEDS: DiphenhydrAMINE 50 mg/ml Inj IVP PRN (11:39)
[2016-11-04 12:35] LABS: BASO # 0.1 K/uL (0.0-0.2); BASO % 1.1 % (0.0-2.0); EOS # 0.4 K/uL (0.0-0.7); EOS % 3.1 % (0.0-4.0); HEMATOCRIT 35.7 % (34.0-47.0); LYMPH # 1.5 K/uL (1.0-4.3); LYMPH % 11.8 % (20.0-40.0); MEAN CORPUSCULAR HEMOGLOBIN 28.2 pg (27.0-31.0); MEAN CORPUSCULAR HGB CONC 31.2 g/dL (33.0-37.0); MEAN PLATELET VOLUME 7.8 fL (7.2-11.7); MONO # 1.1 K/uL (0.0-0.8); MONO % 8.9 % (0.0-10.0); NRBC % 0.1 % (0.0-2.0); RED CELL DISTRIBUTION WIDTH 20.3 % (11.5-14.5)
[2016-11-04 12:38] LABS: POTASSIUM 3.6 mmol/L (3.6-5.2)
[2016-11-04 12:40] LABS: BILIRUBIN,TOTAL 0.9 mg/dL (0.2-1.3)
[2016-11-04 12:41] LABS: CALCIUM 8.1 mg/dl (8.6-10.4); PHOSPHOROUS 4.9 mg/dL (2.5-4.5); TOTAL PROTEIN 8.3 g/dL (6.3-8.3)
[2016-11-04 12:42] LABS: MAGNESIUM 1.9 mg/dL (1.6-2.3)
[2016-11-04 12:50] LABS: MEAN CELL VOLUME 90.4 fL (81.0-99.0); WHITE BLOOD COUNT 12.4 K/uL (4.8-10.8)
[2016-11-04] MEDS: Ferric Sodium Gluconat Complex 62.5 mg/5 ml Vial IVPB SCH (12:57)
[2016-11-04] MEDS: Insulin Detemir 100 units/ml Vial (Levemir) SC SCH (12:57)
[2016-11-04] MEDS: NIFEdipine 60 mg ER Tab PO SCH (12:58)
[2016-11-04] MEDS: (Novolin R) Insulin Human Regular 100 units/ml vial SC SCH (12:58)
[2016-11-04] MEDS: (Novolog) Insulin Aspart, Recombinant 100 u/ml 10 ml vial SC SCH (12:58)
[2016-11-04] MEDS ORDERED: DiphenhydrAMINE 50 mg/ml Inj IVP STA (13:12)
[2016-11-04 15:15] VITALS: BP 195/98; PULSE 105; RESP 18; TEMP 98
--- NOTE | 2016-11-04 16:43 | PCM.PSYCH ---
Initial Psychiatric Evaluation - Initial Psychiatric Evaluation Chief Complaint (in patient's own words): A consult was requested for competency. Medical Assistant Dermatology spoke to the resident Dr. Mon and explained the difference between competency and capacity. Medical Assistant Dermatology explained competency is a legal issue and capacity is issue specific. Medical Assistant Dermatology went to pt' s room and introduced herself. pt stated she did not want to talk to the documentation writer at this time Current Medications: Active Medications Generic Name Dose Route Start Last Admin Trade Name Freq PRN Reason Stop Dose Admin Acetaminophen 650 mg 10/31/16 01:40 Tylenol 325mg Tab PO Q6 PRN Fever >100.4 F Alprazolam 1 mg 10/31/16 17:09 11/04/16 03:22 Xanax PO 1 mg Q4H PRN Administration Anxiety Clonidine HCl 0.3 mg 10/31/16 10:00 11/04/16 14:58 Catapres PO Not Given TID [facility] Diphenhydramine HCl 50 mg 11/02/16 17:01 11/04/16 11:39 Benadryl IVP 50 mg Q4H PRN Administration Agitation Docusate Sodium 100 mg 10/31/16 10:00 11/04/16 12:56 Colace PO Not Given BID [facility] Duloxetine HCl 60 mg 10/31/16 18:00 11/04/16 12:56 Cymbalta PO Not Given BID [facility] Epoetin James 10,000 unit 11/01/16 17:36 11/03/16 15:26 Procrit IV 10,000 unit MWF [facility] Administration Escitalopram Oxalate 20 mg 10/31/16 17:15 11/04/16 12:57 Lexapro PO Not Given DAILY [facility] Famotidine 20 mg 10/31/16 10:00 11/04/16 12:58 Pepcid PO Not Given DAILY [facility] Ferric Sodium Gluconate Complex 125 mg 10/31/16 10:00 11/04/16 12:57 Ferrlecit IVPB 11/08/16 10:01 Not Given DAILY [facility] Vancomycin HCl 1 gm/ Sodium 250 mls @ 166.7 mls/hr 10/31/16 19:00 11/03/16 19: 00 Chloride IVPB Not Given Q24H [facility] Insulin Aspart 6 unit 10/31/16 07:30 11/04/16 12:58 Novolog SC Not Given AC [facility] Insulin Detemir 12 unit 10/31/16 10:00 11/04/16 12:57 Levemir SC Not Given Q12 [facility] Insulin Human Regular 0 unit 10/31/16 07:30 11/04/16 12:58 Novolin R SC Not Given ACHS [facility] Protocol Lorazepam 2 mg 11/02/16 17:00 11/04/16 11:39 Ativan IVP 2 mg Q6H PRN Administration Anxiety Metoclopramide HCl 10 mg 10/31/16 10:00 11/04/16 12:59 Reglan PO Not Given DAILY [facility] Nifedipine 60 mg 10/31/16 10:00 11/04/16 12:58 Procardia Xl PO Not Given BID [facility] Ondansetron HCl 4 mg 11/04/16 15:05 11/04/16 15:20 Zofran Inj IM 4 mg Q6H PRN Administration Nausea/Vomiting Past Psychiatric History - Past Psychiatric History Pertinent Medical Hx (Current Medical&Sleep Prob, Allergies): Allergies Allergy/AdvReac Type Severity Reaction Status Date / Time ketorolac tromethamine Allergy RASH Verified 10/30/16 15:32 [From Toradol] latex Allergy RASH Verified 10/30/16 15:32 morphine Allergy RASH Verified 10/30/16 15:32 tramadol Allergy RASH Verified 10/30/16 15:32 Sevelamer Carbonate [Renvela] 3 tab PO TID 11/21/14 Calcium Acetate [Phoslo] 667 mg PO TID 12/13/15 Docusate [Colace] 100 mg PO BID #60 cap 08/21/16 HYDROmorphone [Dilaudid] 1 tab PO Q6H PRN #0 tab 08/21/16 Insulin Aspart, Recombinant [Novolog] 6 unit SC AC #0 unit 08/21/16 Metoclopramide HCl [Reglan] 10 mg PO DAILY #30 tablet 08/21/16 Diphenhydramine 1% [BENADRYL 1% Zinc Acetate -0.1%] 1 cre TOP BID PRN #1 tube Insulin Detemir [Levemir] 12 unit SC Q12 #1 vial 09/04/16 NIFEdipine ER [Procardia XL] 60 mg PO BID #30 ter 09/04/16 cloNIDine 0.3 mg/24 hr [catapres-TTS3 0.3 mg/24 hr] 1 patch TD Q7D@1000 #4 patch 09/04/16 valACYclovir [Valtrex] 500 mg PO BID #10 tab 09/04/16 predniSONE [predniSONE Tab] 10 mg PO DAILY #72 tab 09/15/16 Escitalopram [Lexapro] 5 mg PO DAILY #30 tab 10/12/16 Docusate [Colace] 100 mg PO BID #60 cap 10/15/16 Magnesium Citrate [[facility] Magnesium Citrate] 300 ml PO ONCE PRN #1 bottle 10/15/16
--- NOTE | 2016-11-04 18:58 | CP.PCM.DIS ---
Provider - Provider Date of Admission: 10/30/16 18:49 Attending physician: Cecil Wilkins Jr, MD Primary care physician: Franky Consults: Jacqueline Garza - Payton Time Spent in preparation of Discharge (in minutes): 31 Hospital Course - Lab Results Lab Results: Most Recent Lab Values WBC 12.4 K/uL (4.8-10.8) H D 11/04/16 12:25 RBC 3.94 Mil/uL (3.80-5.20) 11/04/16 12:25 Hgb 11.1 g/dL (11.0-16.0) D 11/04/16 12:25 Hct 35.7 % (34.0-47.0) 11/04/16 12:25 MCV 90.4 fL (81.0-99.0) D 11/04/16 12:25 MCH 28.2 pg (27.0-31.0) 11/04/16 12:25 MCHC 31.2 g/dL (33.0-37.0) L 11/04/16 12:25 RDW 20.3 % (11.5-14.5) H 11/04/16 12:25 Plt Count 517 K/uL (130-400) H 11/04/16 12:25 MPV 7.8 fL (7.2-11.7) 11/04/16 12:25 Neut % (Auto) 75.1 % (50.0-75.0) H 11/04/16 12:25 Lymph % (Auto) 11.8 % (20.0-40.0) L 11/04/16 12:25 [place] % (Auto) 8.9 % (0.0-10.0) 11/04/16 12:25 Eos % (Auto) 3.1 % (0.0-4.0) 11/04/16 12:25 Baso % (Auto) 1.1 % (0.0-2.0) 11/04/16 12:25 Neut # 9.3 K/uL (1.8-7.0) H 11/04/16 12:25 Lymph # 1.5 K/uL (1.0-4.3) 11/04/16 12:25 [place] # 1.1 K/uL (0.0-0.8) H 11/04/16 12:25 Eos # 0.4 K/uL (0.0-0.7) 11/04/16 12:25 Baso # 0.1 K/uL (0.0-0.2) 11/04/16 12:25 Neutrophils % (Manual) 75 % (50-75) 10/30/16 17:50 Band Neutrophils % 4 % (0-2) H 10/30/16 17:50 Lymphocytes % (Manual) 11 % (20-40) L 10/30/16 17:50 Monocytes % (Manual) 7 % (0-10) 10/30/16 17:50 Eosinophils % (Manual) 3 % (0-4) 10/30/16 17:50 Hypersegmented Polys Present 10/30/16 17:50 Smudge Cells Present 10/30/16 17:50 Platelet Estimate Normal (NORMAL) 10/30/16 17:50 Large Platelets Present 10/30/16 17:50 Polychromasia Slight 10/30/16 17:50 Poikilocytosis (manual Slight 10/30/16 17:50 Anisocytosis (manual) Slight 10/30/16 17:50 pO2 122 mm/Hg (30-55) H 10/30/16 17:54 VBG pH 7.41 (7.32-7.43) 10/30/16 17:54 VBG pCO2 32 mmHg (40-60) L 10/30/16 17:54 VBG HCO3 22.3 mmol/L 10/30/16 17:54 VBG Total CO2 21.3 mmol/L (22-28) L 10/30/16 17:54 VBG O2 Sat (Calc) 99.0 % (40-65) H 10/30/16 17:54 VBG Base Excess -3.4 mmol/L (0.0-2.0) L 10/30/16 17:54 VBG Potassium 5.6 mmol/L (3.6-5.2) H 10/30/16 17:54 Sodium 133.0 mmol/l (132-148) 10/30/16 17:54 Chloride 101.0 mmol/L (98-107) 10/30/16 17:54 Glucose 261 mg/dl (65-105) H 10/30/16 17:54 Lactate 0.9 mmol/L (0.7-2.1) 10/30/16 17:54 Sodium 137 mmol/L (132-148) 11/04/16 12:25 Potassium 3.6 mmol/L (3.6-5.2) 11/04/16 12:25 Chloride 89 mmol/L (98-107) L 11/04/16 12:25 Carbon Dioxide 24 mmol/L (22-30) 11/04/16 12:25 Anion Gap 28 (10-20) H 11/04/16 12:25 BUN 29 mg/dL (7-17) H 11/04/16 12:25 Creatinine 6.0 MG/DL (0.7-1.2) H 11/04/16 12:25 Est GFR ( Amer) 10 11/04/16 12:25 Est GFR (Non-Af Amer) 8 11/04/16 12:25 POC Glucose (mg/dL) 81 mg/dL (65-110) 11/03/16 17:17 Random Glucose 176 mg/dL (65-105) H 11/04/16 12:25 Calcium 8.1 mg/dl (8.6-10.4) L 11/04/16 12:25 Phosphorus 4.9 mg/dL (2.5-4.5) H 11/04/16 12:25 Magnesium 1.9 mg/dL (1.6-2.3) 11/04/16 12:25 Ferritin 1970.0 ng/mL 11/01/16 18:13 Total Bilirubin 0.9 mg/dL (0.2-1.3) 11/04/16 12:25 AST 24 U/L (14-36) 11/04/16 12:25 ALT 55 U/L (9-52) H 11/04/16 12:25 Alkaline Phosphatase 157 U/L (38-126) H D 11/04/16 12:25 Troponin I 0.0470 ng/mL (0.00-0.120) 10/30/16 17:50 Total Protein 8.3 g/dL (6.3-8.3) 11/04/16 12:25 Albumin 4.2 g/dL (3.5-5.0) 11/04/16 12:25 Globulin 4.1 gm/dL (2.2-3.9) H 11/04/16 12:25 Albumin/Globulin Ratio 1.0 (1.0-2.1) 11/04/16 12:25 Venous Blood Potassium 5.6 mmol/L (3.6-5.2) H 10/30/16 17:54 Influenza Typ A,B (EIA) Negative for flu a/b (NEGATIVE) 10/30/16 18:14 Blood Type A POSITIVE 11/02/16 19:32 Antibody Screen Negative 11/02/16 19:32 - Hospital Course Hospital Course: On hospital admission Patient a 30 year old female with a past medical history significant for gastroparesis, DM, HTN, right foot abscess, ESRD (HD MWF), [place] 2004, and chronic opiate dependence presenting for medical evaluation of abdominal pain and chest pain (consistent with her baseline). She has a known history of gastroparesis. The patient was requesting pain medication in the emergency room as well as on the floors. Patient states she went to dialysis center yesterday however did not receive hemodialysis as she was found to be febrile. She admits to fevers x 3 days and chills. Patient also notes one episode of bilious emesis yesterday. Patient is also reporting right shoulder pain which started yesterday and denies any trauma/falls. Per ED attending, patient's blood culture (10/27/16) resulted positive for MRSA. On hospital course Pt admitted for bacteremia with MRSA from culture on 10/27/16. She was placed on antibiotics and all of her home medications. Pt received dialysis per pt's own schedule. On the floor, pt repeatedly asked for Dilaudid by name and per Dr Wilkins , pt was not to receive any narcotics. Cultures were repeated on 10/30 which were also positive for MRSA. Pt remained heomdynamically stable and without fevers. She began to refuse to be evaluated and so was discharged after her dialysis session today in stable condition. Per Dr Wilkins and Dr Phillips, pt to follow up at dialysis clinic where she will continue her antibiotic regimen as well. Diagnoses Bacteremia with MRSA ESRD on HD - HD MWF and Sat Anemia - chronic Gastroparesis Hypertension DM Depression - Date & Time of H&P Date of H&P: 10/31/16 Time of H&P: 05:09 Discharge Exam - Head Exam Head Exam: ATRAUMATIC, NORMOCEPHALIC - Eye Exam Eye Exam: Normal appearance - Respiratory Exam Respiratory Exam: NORMAL BREATHING PATTERN - Cardiovascular Exam Cardiovascular Exam: +S1, +S2 - Neurological Exam Neurological exam: Alert, Oriented x3 - Skin Skin Exam: Dry, Warm Discharge Plan - Follow Up Plan Condition: SERIOUS Disposition: HOME/ ROUTINE Instructions: Dialysis Diet (GEN), End Stage Kidney Disease (GEN) Additional Instructions: Pt to follow up with dialysis on Sunday. She will resume Vancomycin therapy with dialysis treatments. Referrals: Cecil Wilkins Jr., MD [Medical Doctor] - Jesus Phillips MD [Staff Provider] -
== END 2016-11-04 18:05 | disposition home or self-care (01) | DRG 901 ==
LOC: C.ER 15:17 → C.9E 18:49 → C.3T 19:52
PROVIDERS: ADMIT Internal Medicine; ATTEND Internal Medicine
PROC: 5A1D60Z (ICD-10-PCS; principal; 2016-10-31)
DX: A41.02 Sepsis due to Methicillin resistant Staphylococcus aureus (principal); E11.22 Type 2 diabetes mellitus with diabetic chronic kidney disease; I12.0 Hypertensive chronic kidney disease with stage 5 chronic kidney disease or end stage renal disease; N18.6 End stage renal disease; E11.43 Type 2 diabetes mellitus with diabetic autonomic (poly)neuropathy; L02.611 Cutaneous abscess of right foot; I50.9 Heart failure, unspecified; K31.84 Gastroparesis; E03.9 Hypothyroidism, unspecified; E78.00 Pure hypercholesterolemia, unspecified; F41.9 Anxiety disorder, unspecified; F32.9 Major depressive disorder, single episode, unspecified; D63.1 Anemia in chronic kidney disease; K20.9 Esophagitis, unspecified; K86.1 Other chronic pancreatitis; I25.2 Old myocardial infarction; Z83.3 Family history of diabetes mellitus; Z95.5 Presence of coronary angioplasty implant and graft; Z79.4 Long term (current) use of insulin; Z99.2 Dependence on renal dialysis; Z87.442 Personal history of urinary calculi; Z79.891 Long term (current) use of opiate analgesic

== ENCOUNTER 2016-11-15 14:02 | Inpatient (IN) | payer MEDICAID ==
[2016-11-15 14:02] VITALS: BMI 27.4
[2016-11-15] MEDS ORDERED: DiphenhydrAMINE 50 mg/ml Inj IVP STA ×4 (14:52→20:08)
--- NOTE | 2016-11-15 14:52 | C.PDOC ---
History Of Present Illness 30-year-old female BIBA for evaluation of perisistent, nonradiating chest pain for the past two weeks. Secondary complaint is abdominal pain, nausea and non- bilious/non-bloody vomiting, which is similar to prior gastroparesis pain. Patient reports her last dialysis was two days ago, and is due for HD today. Pt notes mild associated shortness of breath. She denies fever, palpitations. Patient given Aspirin in the field by EMS. Time Seen by Provider: 11/15/16 14:12 Chief Complaint (Nursing): Chest Pain History Per: Patient History/Exam Limitations: no limitations Onset/Duration Of Symptoms: Days Current Symptoms Are (Timing): Still Present Severity: Moderate Quality: "Pain" Past Medical History Reviewed: Historical Data, Nursing Documentation, Vital Signs Vital Signs: Last Vital Signs Temp 98.2 F 11/17/16 16:15 Pulse 94 H 11/17/16 17:19 Resp 20 11/17/16 16:15 BP 172/98 H 11/17/16 16:15 Pulse Ox 98 11/17/16 16:15 - Medical History PMH: Anemia, Anxiety, Diabetes, Fractures (Sep 2012 L foot), Gastritis, Gastrointestinal Ulcer (gastroparesis), Gall Bladder Disease (gallbladder removed), Hepatitis, HTN, Hypercholesterolemia, Hyperthyroidism, Hypothyroidism , Kidney Stones, Pancreatitis (chronic), Peripheral Edema, End Stage Renal Disease, Chronic Kidney Disease, Seizures, Chronic Pain Surgical History: Cholecystectomy, Coronary Stent - [facility] Procedures ASSISTANCE WITH RESPIRATORY VENTILATION, 24-96 HRS, CPAP (05/25/16) CAUTERY TO STOP EPISTAX (03/22/14) CENTRAL VENOUS CATHETER PLACEMENT WITH GUIDANCE (11/06/14) DIALYSIS ARTERIOVENOSTOM (01/10/14) DRAINAGE OF RIGHT FOOT SKIN, EXTERNAL APPROACH (07/17/16) DRAINAGE OF RIGHT LOWER ARM SKIN, EXTERNAL APPROACH (05/25/16) ESOPHAGOGASTRODUODENOSCOPY [EGD] W/CLOSED BIOPSY (03/03/14) EXCISION OF STOMACH, ENDO, DIAGN (05/09/16) EXTIRPATE MATTER FROM R LOW ARM SUBCU/FASCIA, PERC (05/25/16) EXTRACTION OF RIGHT FOOT SKIN, EXTERNAL APPROACH (05/25/16) FLEXIBLE SIGMOIDOSCOPY (10/26/14) FLUOROSCOPY OF R JUGULAR VEIN USING L OSM CONTRAST, GUIDANCE (12/13/15) FLUOROSCOPY OF RIGHT SUBCLAVIAN VEIN, GUIDANCE (08/07/16) HEMODIALYSIS (04/05/15) INJECT INSULIN (12/23/12) INJECT/INFUSE ELECTROLYT (12/23/12) INJECT/INFUSE NEC (01/17/15) INSERT INFUSION DEV IN R INT JUGULAR VEIN, PERC (02/23/16) INSERTION OF INFUSION DEV INTO R BASILIC VEIN, PERC APPROACH (04/18/16) INSERTION OF INFUSION DEV INTO R SUBCLAV VEIN, PERC APPROACH (08/29/16) INSERTION OF INFUSION DEV INTO SUP VENA CAVA, PERC APPROACH (05/25/16) INSERTION OF INFUSION DEVICE INTO R ATRIUM, PERC APPROACH (12/13/15) INSERTION OF VAD INTO CHEST SUBCU/FASCIA, OPEN APPROACH (12/13/15) MEASURE OF CARDIAC SAMPL & PRESSURE, L HEART, PERC APPROACH (10/09/16) OTHER ENDOSCOPY OF SM INTEST (08/25/14) PACKED CELL TRANSFUSION (10/26/14) PERFORMANCE OF URINARY FILTRATION, MULTIPLE (10/30/16) PERFORMANCE OF URINARY FILTRATION, SINGLE (11/15/16) PLAIN RADIOGRAPHY OF LEFT HEART USING OTHER CONTRAST (10/09/16) PLAIN RADIOGRAPHY OF MULT COR ART USING OTH CONTRAST (10/09/16) PLICATION OF VENA CAVA (03/22/14) POST NASAL PAC FOR EPIST (03/22/14) REMOVAL OF VAD FROM TRUNK SUBCU/FASCIA, OPEN APPROACH (02/23/16) MELVIN KENNY DIALYSIS SHUNT (03/03/14) THERAPEUTIC ERYTHROCYTAPHERESIS (10/26/14) TRANSFUSE NONAUT RED BLOOD CELLS IN PERIPH VEIN, PERC (11/15/16) ULTRASONOGRAPHY OF RIGHT SUBCLAVIAN VEIN, GUIDANCE (08/29/16) VACCINATION NEC (10/26/14) VENOUS CATHETERIZATION FOR RENAL DIALYSIS (03/03/14) Family History: States: No Known Family Hx - Social History Hx Tobacco Use: No Hx Alcohol Use: No Hx Substance Use: No - Immunization History Hx Tetanus Toxoid Vaccination: Yes Hx Influenza Vaccination: Yes Hx Pneumococcal Vaccination: Yes Review Of Systems Except As Marked, All Systems Reviewed And Found Negative. Constitutional: Negative for: Fever, Chills Cardiovascular: Positive for: Chest Pain Respiratory: Positive for: Shortness of Breath. Negative for: Cough Gastrointestinal: Positive for: Nausea, Vomiting, Abdominal Pain Musculoskeletal: Negative for: Back Pain Skin: Negative for: Rash Neurological: Negative for: Weakness, Numbness, Headache, Dizziness Physical Exam - Physical Exam Appears: Non-toxic, Other (Uncomfortable appearing, Speaking in full sentences.) Skin: No Rash Oral Mucosa: Moist Neck: Normal, Normal ROM Cardiovascular: Rhythm Regular (tacycardic), Murmur (3/6, holosystolic) Respiratory: No Accessory Muscle Use, Rales (bases B/L), No Rhonchi, No Wheezing Gastrointestinal/Abdominal: Bowel Sounds, Soft, Tenderness (epigastric TTP, no rebound/guarding), No Guarding, No Rebound Extremity: Normal ROM Neurological/Psych: Oriented x3 ED Course And Treatment - Laboratory Results Result Diagrams: 11/17/16 11:40 11/17/16 11:40 ECG: Interpreted By Me, Viewed By Me (sinus tachycardia 105 bpm, normal axis, T wave inversions I, aVL, no acute ST changes) ECG Interpretation: Abnormal O2 Sat by Pulse Oximetry: 97 (RA) Pulse Ox Interpretation: Normal - Radiology CXR: Viewed By Me, Read By Radiologist CXR Interpretation: Yes: Other (Interstitial prominence may reflect infection or edema, increased in extent since prior study. Cardiomegaly) Progress Note: Blood work, EKG and CXR ordered and reviewed. Pt treated with IV Benadryl, IV Dilaudid, IV Reglan and duoneb treatments. - Physician Consult Information Physician Contacted: Purvi Quezada Outcome Of Conversation: Dr. Wilkins currently on vacation, being covrred by hospitalist service. Spoke with Dr. Quezada, she agrees with admission for chest pain, R/O ACS, fluid overload, ESRD on HD. Neprhology consulted for dialysis. Disposition - Disposition Disposition: HOSPITALIZED Disposition Time: 17:28 Condition: STABLE - Clinical Impression Clinical Impression: Fluid overload, Chest pain, End stage renal disease, Nausea, Vomiting - Scribe Statement The provider has reviewed the documentation as recorded by the Arun Gonzalez All medical record entries made by the Kwadwoibjoan were at my direction and personally dictated by me. I have reviewed the chart and agree that the record accurately reflects my personal performance of the history, physical exam, medical decision making, and the department course for this patient. I have also personally directed, reviewed, and agree with the discharge instructions and disposition. Decision To Admit - Pt Status Changed To: Hospital Disposition Of: Inpatient - Admit Certification Admit to Inpatient:: After my assessment, the patient will require hospitalization for at least two midnights. This is because of the severity of symptoms shown, intensity of services needed, and/or the medical risk in this patient being treated as an outpatient. - InPatient: Physician Admission Certification: I certify that this patient requires 2 or more midnights of care for the following reason:: see notes - . Bed Request Type: Telemetry Admitting Physician: Purvi Quezada Patient Diagnosis: Chest pain, Fluid overload, Gastroparesis due to DM, Nausea, Vomiting, ESRD needing dialysis
[2016-11-15] MEDS ORDERED: DiphenhydrAMINE 50 mg/ml Inj ONE ×3 (14:57→18:42)
[2016-11-15 15:00] LABS: BASO # 0.1 K/uL (0.0-0.2); BASO % 0.8 % (0.0-2.0); EOS # 0.4 K/uL (0.0-0.7); EOS % 3.5 % (0.0-4.0); HEMATOCRIT 31.5 % (34.0-47.0); LYMPH # 1.2 K/uL (1.0-4.3); LYMPH % 11.4 % (20.0-40.0); MEAN CELL VOLUME 92.5 fL (81.0-99.0); MEAN CORPUSCULAR HEMOGLOBIN 30.1 pg (27.0-31.0); MEAN CORPUSCULAR HGB CONC 32.6 g/dL (33.0-37.0); MEAN PLATELET VOLUME 7.5 fL (7.2-11.7); MONO # 0.6 K/uL (0.0-0.8); MONO % 6.1 % (0.0-10.0); RED CELL DISTRIBUTION WIDTH 20.7 % (11.5-14.5); WHITE BLOOD COUNT 10.3 K/uL (4.8-10.8)
[2016-11-15] MEDS ORDERED: Albuterol-Ipratrop 3 mg / 0.5 (3 ml) UD IH STA (15:12)
[2016-11-15 15:13] LABS: ALB/GLOB RATIO 1.3 (1.0-2.1); BILIRUBIN,TOTAL 1.1 mg/dL (0.2-1.3); INR 1.1; TOTAL PROTEIN 8.6 g/dL (6.3-8.3)
[2016-11-15 15:14] LABS: CALCIUM 6.7 mg/dl (8.6-10.4)
[2016-11-15] MEDS ORDERED: Albuterol-Ipratrop 3 mg / 0.5 (3 ml) UD ONE ×2 (15:16→15:36)
[2016-11-15 15:23] LABS: POTASSIUM 5.3 mmol/L (3.6-5.2)
[2016-11-15 15:24] LABS: TROPONIN I 0.094 ng/mL (0.00-0.120)
--- NOTE | 2016-11-15 15:48 | RAD ---
HISTORY: SOB COMPARISON: Chest x-ray performed 10/30/16 TECHNIQUE: Chest, one view. FINDINGS: LUNGS: Interstitial prominence may reflect infection or edema, increased in extent since prior study. Please note that chest x-ray has limited sensitivity for the detection of pulmonary masses. PLEURA: No significant pleural effusion identified. No definite pneumothorax . CARDIOVASCULAR: Cardiomegaly. OSSEOUS STRUCTURES: No acute osseous abnormality identified. VISUALIZED UPPER ABDOMEN: Unremarkable. OTHER FINDINGS: Curvilinear radiopaque density projects over the right scapula. IMPRESSION: Interstitial prominence may reflect infection or edema, increased in extent since prior study. Cardiomegaly.
--- NOTE | 2016-11-15 17:20 | CP.PCM.HP ---
<Herman Cheema - Last Filed: 11/16/16 15:17> History of Present Illness - History of Present Illness History of Present Illness: CC: chest pain, SOB for several days HPI: Patient a 30 year old female with a past medical history significant for gastroparesis, DM, HTN, right foot abscess, ESRD (HD MWF), [place] 2004, and chronic opiate dependence presenting for medical evaluation of abdominal pain and chest pain (consistent with her baseline). She has a known history of gastroparesis. The patient was requesting pain medication in the emergency room as well as on the floors. Patient states she last had dialysis this past Sunday, and they noted a BP in the 250s systolic. She was advised to receive an early dialysis session the next day, however missed that appointment. She again missed her dialysis appointment today due to feeling ill, and instead decided to come to the ED. Reports feeling SOB after missing dialysis, along with baseline abdominal pain, chest pain, and n/v (non bilious/non bloody). Denies fevers, chills, headache, dizziness, or any additional complaints. PMD: Dr. Wilkins Nephharpal: Dr. Phillips PMH: gastroparesis, DM, HTN, Right foot abscess, ESRD on HD MWF, [place] 2004, chronic opiate dependence Meds: Extensive Medication list is updated in EMR Allergy: Toradol, Latex, Morphine, Tramadol PSH: exlap for adhesions 2005 and 2009. Cholecystectomy 2009. L arm AVF 2014, I& D right foot abscess FH: DM mother and unknown ca in mother's family Social: denied EtOH, drugs, smoking. Lives with mother Present on Admission - Present on Admission Any Indicators Present on Admission: No Review of Systems - Constitutional Constitutional: Weakness. absent: Chills, Fever - EENT Eyes: absent: Blurred Vision, Change in Vision Ears: absent: Decreased Hearing, Ear Discharge, Dizziness Nose/Mouth/Throat: absent: Nasal Congestion, Nasal Discharge - Cardiovascular Cardiovascular: Chest Pain, Dyspnea, Edema, Pedal Edema - Respiratory Respiratory: Dyspnea. absent: Hemoptysis - Gastrointestinal Gastrointestinal: Abdominal Pain, Nausea, Vomiting. absent: Diarrhea - Genitourinary Genitourinary: absent: Flank Pain - Musculoskeletal Musculoskeletal: absent: Arthralgias, Atrophy - Integumentary Integumentary: absent: Alopecia, Bleeding Lesions - Neurological Neurological: absent: Numbness, Weakness - Hematologic/Lymphatic Hematologic: absent: Easy Bleeding, Easy Bruising Past Patient History - Infectious Disease Hx of Infectious Diseases: MRSA - Tetanus Immunizations Tetanus Immunization: Unknown - Past Medical History & Family History Past Medical History?: Yes - Past Social History Smoking Status: Never Smoked - CARDIAC Hx Hypercholesterolemia: Yes Hx Hypertension: Yes Hx Peripheral Edema: Yes - NEUROLOGICAL Hx Seizures: Yes - HEENT Hx HEENT Problems: No - RENAL Hx Chronic Kidney Disease: Yes Hx Kidney Stones: Yes - ENDOCRINE/METABOLIC Hx Hyperthyroidism: Yes Hx Hypothyroidism: Yes - HEMATOLOGICAL/ONCOLOGICAL Hx Anemia: Yes - INTEGUMENTARY Hx Dermatological Problems: Yes Other/Comment: DRY ITCHY SKIN ;multiple/generalized dark spots on skin - MUSCULOSKELETAL/RHEUMATOLOGICAL Hx Fractures: Yes (Sep 2012 L foot) - GASTROINTESTINAL Hx Gall Bladder Disease: Yes (gallbladder removed) Hx Gastritis: Yes Hx Pancreatitis: Yes (chronic) - GENITOURINARY/GYNECOLOGICAL Hx Genitourinary Disorders: No - PSYCHIATRIC Hx Anxiety: Yes Hx Substance Use: No - SURGICAL HISTORY Hx Cholecystectomy: Yes Hx Coronary Stent: Yes - ANESTHESIA Hx Anesthesia: Yes Hx Anesthesia Reactions: No Hx Malignant Hyperthermia: No Meds Allergies/Adverse Reactions: Allergies Allergy/AdvReac Type Severity Reaction Status Date / Time ketorolac tromethamine Allergy RASH Verified 10/30/16 15:32 [From Toradol] latex Allergy RASH Verified 10/30/16 15:32 morphine Allergy RASH Verified 10/30/16 15:32 tramadol Allergy RASH Verified 10/30/16 15:32 Physical Exam - Additional Findings Additional findings: - Constitutional Appears: Non-toxic, No Acute Distress - Head Exam Head Exam: ATRAUMATIC, NORMAL INSPECTION, NORMOCEPHALIC - Eye Exam Eye Exam: EOMI, Normal appearance, PERRL - ENT Exam ENT Exam: Mucous Membranes Moist - Respiratory Exam Respiratory Exam: Rales, Wheezes, NORMAL BREATHING PATTERN. absent: Rhonchi - Cardiovascular Exam Cardiovascular Exam: +S1, +S2. absent: Tachycardia, Diastolic murmur, Systolic Murmur - GI/Abdominal Exam GI & Abdominal Exam: Normal Bowel Sounds, Soft, Tenderness. absent: Distended, Firm, Guarding - Extremities Exam Extremities exam: Positive for: pedal edema, pedal pulses present. Negative for : tenderness - Back Exam Back exam: NORMAL INSPECTION - Neurological Exam Neurological exam: Alert, CN II-XII Intact, Oriented x3 - Psychiatric Exam Psychiatric exam: Anxious - Skin Additional comments: papular lesions on b/l upper and lower extremities Results - Vital Signs Recent Vital Signs: Last Vital Signs Temp 98.9 F 11/15/16 16:23 Pulse 108 H 11/15/16 17:05 Resp 18 11/15/16 17:05 BP 207/116 H 11/15/16 17:05 Pulse Ox 99 11/15/16 17:05 - Labs Result Diagrams: 11/16/16 05:46 11/16/16 05:46 Labs: Laboratory Results - last 24 hr 11/15/16 11/15/16 14:51 16:17 WBC 10.3 RBC 3.40 L Hgb 10.3 L Hct 31.5 L MCV 92.5 D MCH 30.1 MCHC 32.6 L RDW 20.7 H Plt Count 363 D MPV 7.5 Neut % (Auto) 78.2 H Lymph % (Auto) 11.4 L Edmunds % (Auto) 6.1 Eos % (Auto) 3.5 Baso % (Auto) 0.8 Neut # 8.1 H Lymph # 1.2 Edmunds # 0.6 Eos # 0.4 Baso # 0.1 PT 11.9 INR 1.1 APTT 32 Sodium 138 Potassium 5.3 H Chloride 96 L Carbon Dioxide 19 L Anion Gap 28 H BUN 74 H Creatinine 8.2 H* D Est GFR ( Amer) 7 Est GFR (Non-Af Amer) 6 POC Glucose (mg/dL) 99 Random Glucose 72 Calcium 6.7 L Total Bilirubin 1.1 AST 52 H D ALT 38 Alkaline Phosphatase 120 Total Creatine Kinase 95 CK-MB (Mass) 1.93 Troponin I 0.0940 NT-Pro-B Natriuret Pep 390897 H Total Protein 8.6 H Albumin 4.9 Globulin 3.7 Albumin/Globulin Ratio 1.3 Assessment & Plan - Assessment and Plan (Free Text) Assessment: ESRD on HD - Received emergent dialysis session 11/15 - HD MWFS schedule - Nephro Consult Dr. Phillips - AM Labs: CBC/CMP/Mg/Phos Abdominal Pain - likely secondary to gastroparesis - Renal diet - Reglan 10 mg po daily - Zofran 4 mg IVP q6h prn - Per Dr. Wilkins - do not continue to give dilaudid Hypertension - Clonidine 0.3 mg po TID - Procardia 60 mg BID - Hydralazine 10mg IVP Q6H PRN - Monitor Chest Pain - ZAK negative x1 - f/u ROMIs/EKG - Cardiology consult, Dr. Casanova DM - Levemir 12 units SC Q12H - Novolog 6 unit SC AC - RISS - Accuchecks Anxiety/Agitation - Xanax 1mg PO Q8H PRN - Benadry 25mg IV PRN - Ativan 1mg Q4H PRN Prophylaxis - SCD - Colace 100 mg po BID - Xarelto 15mg daily - Pepcid 20 mg po daily - Date & Time Date: 11/15/16 Time: 17:30 <Purvi Quezada V - Last Filed: 11/20/16 08:19> Results - Vital Signs Recent Vital Signs: Last Vital Signs Temp 98.2 F 11/17/16 16:15 Pulse 94 H 11/17/16 17:19 Resp 20 11/17/16 16:15 BP 172/98 H 11/17/16 16:15 Pulse Ox 98 11/17/16 16:15 - Labs Result Diagrams: 11/17/16 11:40 11/17/16 11:40 Attending/Attestation - Attestation I have personally seen and examined this patient.: Yes I have fully participated in the care of the patient.: Yes I have reviewed all pertinent clinical information: Yes Notes (Text): Hospitalist Covering Dr. Wilkins's service. Patient seen in [place] [id number] ED on on 11/15/16 at approximately 6:30PM with the resident. Patient is known to me in the past. Patient comes in for chest pain which she reports is left sided, described as soreness, patient did not take any medications for this pain. Patient missed her dialysis session about day and half ago because she was trying to keep a prior opthalamology appointment. As per review of EMR, patient has had cath completed on 10/11/16 which showed hypertensive cardiomyopathy, EF: 45-50%, and normal coronaries as well as a recent echocardiogram supporting uncontrolled hypertension. Resident completed dialysis consent with the patient who will be due for dialysis tonight. Will continue patient on Clonidine 0.3mg PO tid and Procardia 60mg PO bid her home medications. Per discussion with resident, reported her PMD has taken patient off her dilaudid regimen and started her on Benadryl, Ativan, and Xanax combination to titrate her her dependence on dilaudid. Patient's first troponin negative. Will consult cardiology, monitor EKG/ROMIs, patient has received Aspirin in the ED without reaction to it. Her uncontrolled blood pressure influenced by clonidine rebound, agitation secondary lack of dilaudid, and missing her dialysis session. Given stat dose of Clonidine 0.3mg PO and to have dialysis tonight. Discussed admitting orders with day-time resident. Recommended for cardiology consult and nephrology consult and for the patient to receive dialysis tonight. 1) Chest Pain - ZAK negative x1 - f/u ROMIs/EKG - Cardiology consult, Dr. Santos (who has performed her cath early last month) - Aspirin given in the ED - Blood pressure control - patient has recently completed lipid panel and a1c. 2) ESRD on HD - Received emergent dialysis session 11/15/16 - HD MWFS schedule - Nephro Consult Dr. Phillips - Labs: CBC/CMP/Mg/Phos - Dialysis consent obtained by the resident 3) Hypertension, uncontrolled - Clonidine 0.3 mg po TID (given stat dose) - Procardia 60 mg BID - Hydralazine 10mg IVP Q6H PRN - Dialysis tonight - monitor on telemetry - influenced by agitation for Dilaudid 4) History of Gastroparesis - Renal diet - Reglan 10 mg po daily - Zofran 4 mg IVP q6h prn - Per Dr. Wilkins - do not continue to give dilaudid 5) Diabetes type 2, uncontrolled - Levemir 12 units SC Q12H - Novolog 6 unit SC AC - RISS - Accuchecks 6) Anxiety/Agitation - Xanax 1mg PO Q8H PRN - Benadry 25mgl IV Q 6hour PRN - Ativan 1mg Q4H PRN - Per discussion with resident with PMD, no dialudid; and on Xanax/Benadryl/ Ativan combination in attempts of titration 7) Prophylaxis - SCD - Colace 100 mg po BID - Xarelto 15mg daily - Pepcid 20 mg po daily
[2016-11-15] MEDS ORDERED: Nitroglycerin 2% Ointment Foilpak UD TOP ONE ×2 (23:49)
--- NOTE | 2016-11-16 05:17 | CP.PCM.PN ---
<Heaven Sy - Last Filed: 11/16/16 05:18> Subjective - Date & Time of Evaluation Date of Evaluation: 11/15/16 Time of Evaluation: 23:00 - Subjective Subjective: This is a late entry as computer system was down overnight. Hour Doctor Note" Rapid Response was called for this 30 year old female for bleeding fistula s/p hemodyalisis. Patient was done getting when fistula began to bleed. Pressure was maintained and extremity was elevated. However, bleeding persisted. Patient is on home medication of Xarelto. Vital signs: 191/111. HR 120's, RR 20. Patient 's arm was later elevated further and pressure was held for about half an hour when bleeding subsided. Patient was given Hydralazine 10 mg IVP, Clonidine, Nitro paste 1/2 inch for elevated BP. BP improved to 168/89. Patient has very poor access and right EJ was attempted. However, patient was very anxious to allow. She was given Ativan and Dilaudid as per attending. Attending, Chinyere Chen was able to place right EJ for access. Stat CBC and coags were ordered. On review of labs, patient with elevated troponin of 0.1800 at 10:30pm. Troponin on admission 0.0940. Patient reports abdominal pain. However, patient' s true pain level is difficult to assess given patient's history of drug seeking behavior. EKG on admission did not showed non specific ST changes. Awaiting repeat ZAK and EKG. As per discussion with attending, Dr. Whitlock: patient's renal status may likely be contributing to mildly elevated troponin. Patient is currently on Xarelto. Due to patient's recent bleeding episode, will hold on any further anticoagulation at this time. Will await next ZAK. Cardio has been consulted. Will await cardio recommendations. Austin Sy, PGY2 Objective - Vital Signs/Intake and Output Vital Signs (last 24 hours): Temp Pulse Resp BP Pulse Ox 98.4 F 114 H 20 162/89 H 97 11/16/16 00:35 11/16/16 00:35 11/16/16 00:35 11/16/16 00:35 11/16/16 00:35 - Medications Medications: Current Medications Alprazolam (Xanax) 1 mg PO Q8H PRN PRN Reason: Anxiety Clonidine HCl (Catapres) 0.[address] [facility] Diphenhydramine HCl (Benadryl) 25 mg IVP Q6H PRN PRN Reason: Agitation Docusate Sodium (Colace) 100 mg PO BID KAREN Famotidine (Pepcid) [address] [facility] Hydralazine HCl (Apresoline) 10 mg IVP Q6H PRN PRN Reason: Systolic Blood Pressure Insulin Aspart (Novolog) 6 unit SC AC KAREN Insulin Aspart (Novolog) 0 unit SC ACHS KAREN PRN Reason: Protocol Insulin Detemir (Levemir) 12 unit SC Q12 KAREN Lorazepam (Ativan) 1 mg IVP Q4H PRN PRN Reason: Anxiety Metoclopramide HCl (Reglan) [address] [facility] Nifedipine (Procardia Xl) 60 mg PO BID KAREN Ondansetron HCl (Zofran Inj) 4 mg IVP Q6H PRN PRN Reason: Nausea/Vomiting Rivaroxaban (Xarelto) [address] [facility] Sevelamer Carbonate (Renvela) 2,400 mg PO TIDCC KAREN - Labs Labs: PT 11.9 SECONDS (9.7-12.2) 11/15/16 14:51 INR 1.1 11/15/16 14:51 APTT 32 SECONDS (21-34) 11/15/16 14:51 <David Whitlock P - Last Filed: 11/25/16 22:19> Objective - Vital Signs/Intake and Output Vital Signs (last 24 hours): Temp Pulse Resp BP Pulse Ox 98.2 F 94 H 20 172/98 H 97 11/17/16 16:15 11/17/16 17:19 11/17/16 16:15 11/17/16 16:15 11/24/16 19:02 - Labs Labs: 11/17/16 11:40 11/17/16 11:40 PT 15.4 SECONDS (9.7-12.2) H 11/16/16 05:46 INR 1.4 11/16/16 05:46 APTT 32 SECONDS (21-34) 11/15/16 14:51 Attending/Attestation - Attestation I have personally seen and examined this patient.: Yes I have fully participated in the care of the patient.: Yes I have reviewed all pertinent clinical information, including history, physical exam and plan: Yes
[2016-11-16] MEDS: DiphenhydrAMINE 50 mg/ml Inj IVP PRN ×4 (05:26→22:59)
[2016-11-16 05:55] LABS: BASO # 0.1 K/uL (0.0-0.2); EOS # 0.3 K/uL (0.0-0.7); EOS % 3.8 % (0.0-4.0); HEMATOCRIT 20.4 % (34.0-47.0); LYMPH # 0.7 K/uL (1.0-4.3); MEAN CORPUSCULAR HEMOGLOBIN 30.4 pg (27.0-31.0); MEAN CORPUSCULAR HGB CONC 32.7 g/dL (33.0-37.0); MONO # 0.6 K/uL (0.0-0.8); MONO % 7.6 % (0.0-10.0); NRBC % 0.1 % (0.0-2.0); PLATELET COUNT 232 K/uL (130-400); RED CELL DISTRIBUTION WIDTH 20.4 % (11.5-14.5); WHITE BLOOD COUNT 7.7 K/uL (4.8-10.8)
[2016-11-16 06:01] LABS: INR 1.4
[2016-11-16 06:05] LABS: POTASSIUM 3.8 mmol/L (3.6-5.2)
[2016-11-16 06:07] LABS: ALB/GLOB RATIO 1.2 (1.0-2.1); BILIRUBIN,TOTAL 0.5 mg/dL (0.2-1.3); TOTAL PROTEIN 5.4 g/dL (6.3-8.3)
[2016-11-16 06:08] LABS: MAGNESIUM 1.7 mg/dL (1.6-2.3); PHOSPHOROUS 4.3 mg/dL (2.5-4.5)
[2016-11-16 06:19] LABS: CALCIUM 5.7 mg/dl (8.6-10.4)
[2016-11-16] MEDS: (Novolog) Insulin Aspart, Recombinant 100 u/ml 10 ml vial SC SCH ×8 (06:39→21:42)
[2016-11-16 09:25] LABS: HEMATOCRIT 26.4 % (34.0-47.0); MEAN CELL VOLUME 91.8 fL (81.0-99.0); MEAN CORPUSCULAR HEMOGLOBIN 30.1 pg (27.0-31.0); MEAN CORPUSCULAR HGB CONC 32.8 g/dL (33.0-37.0); RED CELL DISTRIBUTION WIDTH 20.6 % (11.5-14.5); WHITE BLOOD COUNT 10.3 K/uL (4.8-10.8)
[2016-11-16 09:26] LABS: MEAN PLATELET VOLUME 7.6 fL (7.2-11.7)
[2016-11-16 09:26] LABS: BASOPHIL 1 % (0-2); TOTAL CELLS COUNTED 100
[2016-11-16 09:27] LABS: EOSINOPHIL 4 % (0-4); NEUTROPHIL 75 % (50-75)
[2016-11-16 09:32] LABS: INR 1.2
[2016-11-16 09:57] LABS: ALB/GLOB RATIO 1.3 (1.0-2.1); CALCIUM 7.7 mg/dl (8.6-10.4); POTASSIUM 3.7 mmol/L (3.6-5.2); TOTAL PROTEIN 7.9 g/dL (6.3-8.3)
[2016-11-16] MEDS: Insulin Detemir 100 units/ml Vial (Levemir) SC SCH ×2 (10:22→21:58)
[2016-11-16] MEDS: NIFEdipine 60 mg ER Tab PO SCH ×2 (10:23→17:50)
[2016-11-16 11:03] LABS: TROPONIN I 0.186 ng/mL (0.00-0.120)
--- NOTE | 2016-11-16 12:07 | RAD ---
HISTORY: Fluid overload, chest pain COMPARISON: 11/15/2016 FINDINGS: LUNGS: Mild venous congestion. PLEURA: No significant pleural effusion identified, no pneumothorax apparent. CARDIOVASCULAR: Cardiomegaly. OSSEOUS STRUCTURES: No significant abnormalities. VISUALIZED UPPER ABDOMEN: Normal. OTHER FINDINGS: Persistent retained radiopaque fragment projecting over the scapula. IMPRESSION: Mild venous congestion with cardiomegaly.
--- NOTE | 2016-11-16 13:37 | CON ---
DATE: 11/16/2016 HISTORY OF PRESENT ILLNESS: A 30-year-old woman admitted to the hospital with bleeding from her left arm fistula. The patient has a basilic vein transposition fistula, which has functioned quite well for dialysis. This is the first time that she has had a serious hemorrhage that I am aware of with reece alvarez to this problem. PHYSICAL EXAMINATION: Shows her to have an intact fistula without any bleeding at present. Recent f actor is she had a Port-A-Cath removed. She had been placed on Eliquis. She is unable to tell us wh y and for all these reasons, I think they contributed to bleeding. There is no sign of any stenosis in the graft or fistula in the arm. The rest of her physical exam is essentially unremarkable on a p revious exam. A system review and other medical factors are all unchanged. IMPRESSION: She is bleeding secondary from a puncture site, there are small aneurysms, but this was not where it was bleeding. RECOMMENDATIONS: Discontinuation. If she needs to be on Eliquis, certainly it has to be continued b ut also should be mindful of the fact that there is a risk of bleeding. Kevin Alicia Jr., MD cc: [id number] TT: 11/16/2016 13:36:34 Confirmation # [id number] Dictation # [id number] cn
--- NOTE | 2016-11-16 13:53 | CP.PCM.PN ---
<J Luis Lind - Last Filed: 11/16/16 13:49> Subjective - Date & Time of Evaluation Date of Evaluation: 11/16/16 Time of Evaluation: 13:49 - Subjective Subjective: PGY-1 note for medicine service Pt seen and examined at bedside. Pt reportedly has been asking for pain medications throughout the night. Pt also had an episode of bleeding from her fistula site and a rapid response was called (Please see overnight progress note ). This morning the pt has no new complaints. She has had no more bleeding. Denies fevers, chills, chest pain, sob, nausea or vomiting. Objective - Vital Signs/Intake and Output Vital Signs (last 24 hours): Temp Pulse Resp BP Pulse Ox 98.7 F 86 18 107/67 100 11/16/16 12:43 11/16/16 12:43 11/16/16 12:43 11/16/16 12:43 11/16/16 10:54 Intake and Output: 11/16/16 11/16/16 06:59 18:59 Intake Total 450 0 Balance 450 0 - Medications Medications: Current Medications Alprazolam (Xanax) 1 mg PO Q8H PRN PRN Reason: Anxiety Last Admin: 11/16/16 10:23 Dose: 1 mg Clonidine HCl (Catapres) 0.3 mg PO TID [facility] Last Admin: 11/16/16 10:23 Dose: 0.3 mg Diphenhydramine HCl (Benadryl) 25 mg IVP Q6H PRN PRN Reason: Agitation Last Admin: 11/16/16 11:42 Dose: 25 mg Docusate Sodium (Colace) 100 mg PO BID [facility] Last Admin: 11/16/16 10:23 Dose: 100 mg Famotidine (Pepcid) 20 mg PO DAILY [facility] Last Admin: 11/16/16 10:23 Dose: 20 mg Hydralazine HCl (Apresoline) 10 mg IVP Q6H PRN PRN Reason: Systolic Blood Pressure Last Admin: 11/16/16 11:40 Dose: 10 mg Insulin Aspart (Novolog) 6 unit SC AC [facility] Last Admin: 11/16/16 08:08 Dose: Not Given Insulin Aspart (Novolog) 0 unit SC ACHS [facility] PRN Reason: Protocol Last Admin: 11/16/16 06:39 Dose: Not Given Insulin Detemir (Levemir) 12 unit SC Q12 [facility] Last Admin: 11/16/16 10:22 Dose: 12 unit Lorazepam (Ativan) 1 mg IVP Q4H PRN PRN Reason: Anxiety Last Admin: 11/16/16 11:42 Dose: 1 mg Metoclopramide HCl (Reglan) 10 mg PO DAILY [facility] Last Admin: 11/16/16 10:23 Dose: 10 mg Nifedipine (Procardia Xl) 60 mg PO BID [facility] Last Admin: 11/16/16 10:23 Dose: 60 mg Ondansetron HCl (Zofran Inj) 4 mg IVP Q6H PRN PRN Reason: Nausea/Vomiting Last Admin: 11/16/16 10:24 Dose: 4 mg Rivaroxaban (Xarelto) 15 mg PO DAILY [facility] Sevelamer Carbonate (Renvela) 2,400 mg PO TIDCC [facility] Last Admin: 11/16/16 08:30 Dose: 2,400 mg - Labs Labs: 11/16/16 05:46 11/16/16 05:46 PT 15.4 SECONDS (9.7-12.2) H 11/16/16 05:46 INR 1.4 11/16/16 05:46 APTT 32 SECONDS (21-34) 11/15/16 14:51 - Constitutional Appears: Non-toxic, No Acute Distress - Head Exam Head Exam: ATRAUMATIC, NORMOCEPHALIC - ENT Exam ENT Exam: Mucous Membranes Moist - Respiratory Exam Respiratory Exam: Clear to Ausculation Bilateral, NORMAL BREATHING PATTERN - Cardiovascular Exam Cardiovascular Exam: +S1, +S2 - GI/Abdominal Exam GI & Abdominal Exam: Soft, Tenderness, Normal Bowel Sounds - Extremities Exam Additional comments: bandages over fistula with no strike through bleeding. - Neurological Exam Neurological Exam: Alert, Awake - Skin Skin Exam: Dry, Warm Assessment and Plan - Assessment and Plan (Free Text) Assessment: Acute blood loss anemia - type and cross - transfuse 1 unit - recheck labs Electrolyte imbalance - hypocalcemia - replete ESRD on HD - Received emergent dialysis session - HD MWFS schedule - Nephro Consult Dr. Phillips - AM Labs: CBC/CMP/Mg/Phos Abdominal Pain - likely secondary to gastroparesis - Renal diet - Reglan 10 mg po daily - Zofran 4 mg IVP q6h prn - Per Dr. Wilkins - do not continue to give dilaudid Hypertension - Clonidine 0.3 mg po TID - Procardia 60 mg BID - Hydralazine 10mg Q6H PRN - Monitor DM - Levemir 12 units SC Q12H - Novolog 6 unit SC AC - RISS - Accuchecks Anxiety/Agitation - Xanax 1mg PO Q8H PRN - Benadry 25mg IV PRN - Ativan 1mg Q4H PRN Prophylaxis - SCD - Colace 100 mg po BID - Heparin 5000 U SC q12 - Xarelto 15mg daily - HOLD - Pepcid 20 mg po daily <MarnieRowan webbn M - Last Filed: 11/16/16 16:29> Objective - Vital Signs/Intake and Output Vital Signs (last 24 hours): Temp Pulse Resp BP Pulse Ox 97.5 F L 80 18 100/62 100 11/16/16 14:23 11/16/16 14:23 11/16/16 14:23 11/16/16 14:23 11/16/16 10:54 Intake and Output: 11/16/16 11/16/16 06:59 18:59 Intake Total 450 0 Balance 450 0 - Medications Medications: Current Medications Alprazolam (Xanax) 1 mg PO Q8H PRN PRN Reason: Anxiety Last Admin: 11/16/16 10:23 Dose: 1 mg Calcium Acetate (Phoslo) 667 mg PO TIDCC [facility] Clonidine HCl (Catapres) 0.3 mg PO TID [facility] Last Admin: 11/16/16 14:22 Dose: Not Given Diphenhydramine HCl (Benadryl) 25 mg IVP Q6H PRN PRN Reason: Agitation Last Admin: 11/16/16 11:42 Dose: 25 mg Docusate Sodium (Colace) 100 mg PO BID [facility] Last Admin: 11/16/16 10:23 Dose: 100 mg Famotidine (Pepcid) 20 mg PO DAILY [facility] Last Admin: 11/16/16 10:23 Dose: 20 mg Hydralazine HCl (Apresoline) 10 mg IVP Q6H PRN PRN Reason: Systolic Blood Pressure Last Admin: 11/16/16 11:40 Dose: 10 mg Insulin Aspart (Novolog) 6 unit SC AC [facility] Last Admin: 11/16/16 14:17 Dose: 6 unit Insulin Aspart (Novolog) 0 unit SC ACHS [facility] PRN Reason: Protocol Last Admin: 11/16/16 14:21 Dose: 6 unit Insulin Detemir (Levemir) 12 unit SC Q12 [facility] Last Admin: 11/16/16 10:22 Dose: 12 unit Lorazepam (Ativan) 1 mg IVP Q4H PRN PRN Reason: Anxiety Last Admin: 11/16/16 11:42 Dose: 1 mg Metoclopramide HCl (Reglan) 10 mg PO DAILY [facility] Last Admin: 11/16/16 10:23 Dose: 10 mg Nifedipine (Procardia Xl) 60 mg PO BID [facility] Last Admin: 11/16/16 10:23 Dose: 60 mg Ondansetron HCl (Zofran Inj) 4 mg IVP Q6H PRN PRN Reason: Nausea/Vomiting Last Admin: 11/16/16 10:24 Dose: 4 mg Rivaroxaban (Xarelto) 15 mg PO DAILY [facility] Sevelamer Carbonate (Renvela) 2,400 mg PO TIDCC [facility] Last Admin: 11/16/16 12:00 Dose: 2,400 mg - Labs Labs: 11/16/16 05:46 11/16/16 05:46 PT 15.4 SECONDS (9.7-12.2) H 11/16/16 05:46 INR 1.4 11/16/16 05:46 APTT 32 SECONDS (21-34) 11/15/16 14:51 Attending/Attestation - Attestation I have personally seen and examined this patient.: Yes I have fully participated in the care of the patient.: Yes I have reviewed all pertinent clinical information, including history, physical exam and plan: Yes Notes (Text): 11/16/16 16:28 Patient was seen and examined at bedside with the resident Patient is resting comfortably at this time AV fistula examined but no active bleeding at this time Patient to receive 1 unit of packed Blood cell transfusion and then we will check the hemoglobin again Patient may need another unit of PRBC Patient also noted to have hypocalcemia We will replace calcium orally We'll check the labs again after blood transfusion Discussed the plan of care with the resident and I agree with the above history and physical and assessment/plan by the resident.
[2016-11-16 17:19] VITALS: RESP 20
--- NOTE | 2016-11-16 19:56 | CON ---
DATE: 11/16/2016 REQUESTING PHYSICIAN: Dr. Edilma Forte. A 30-year-old female who was brought in with a history of generalized weakness, not feeling well, and shortness of breath. The patient has a long-standing history of multiple medical p roblems, including diabetes since age of 11, hypertension, chronic kidney disease on dialysis for the last 3 years. PERSONAL HISTORY: Does not smoke, does not drink. SHE IS ALLERGIC TO MULTIPLE MEDICATIONS, INCLUDING MORPHINE AND TORADOL. REVIEW OF SYSTEMS: Generalized weakness is noted. No fever, no chills. Recurrent abdominal pain, o ccasional nausea. Chest discomfort anytime, shortness of breath, pedal edema. No TIAs, no CVAs. Ge neralized numbness is noted. No visual disturbances. Told to have glaucoma and cataracts under care of eye doctor. History of anemia, no easy bleeding. No urinary complaints since on dialysis, excep t occasional flank pain. Multiple arthritis and somewhat atrophy. No hearing problems, no discharge from the ears. No nasal congestion. Sleeps on 2 pillows. Does not walk around much. PAST MEDICAL HISTORY: She had 2 surgeries for the exploratory laparotomy for adhesions, and gallblad rupinder surgery. She had a cardiac cath done about 2 months ago at [facility]. The results are not available. History of hypertension, diabetes, and cholesterol. No seizures. No depression. FAMILY HISTORY: Negative for premature coronary artery disease. Physical exam shows young female chronically sick-looking, in no distress. She is 5 feet 2 inches, weighs 158 pounds. Her blood pressure is 114/70, heart rate of 80, respirato ry rate 20, afebrile. HEAD: Normocephalic. EYES: No pallor, no icterus. Absence of few teeth. NECK: Supple. LUNGS: Clear to auscultation. HEART: PMI is normal. S1, S2 is normal. Soft S4 gallop. Grade I-II/ systolic murmur in mitral a aubrey. ABDOMEN: Soft. Healed surgical scar of previous surgery is noted in the midline. EXTREMITIES: No cyanosis, clubbing, or edema. Distal pulses are 1+. No focal sign. EKG: Sinus tachycardia, nonspecific ST-T changes. One set of enzymes was borderline elevated 2.18; repeat one is negative. Hemoglobin is 6.7. ASSESSMENT: A 30-year-old female with history of hypertension and diabetes. Her chest pain does not appear to be cardiac in nature. RECOMMENDATIONS: At this point, will review the echocardiogram and a cardiac cath that was done rece ntly. No specific treatment is recommended at this point. I thank you kindly. Will follow as needed. David Casanova MD cc: [id number] TT: 11/16/2016 19:55:22 Confirmation # [id number] Dictation # [id number] leonel
--- NOTE | 2016-11-16 22:20 | CP.PCM.CON ---
History of Present Illness - History of Present Illness History of Present Illness: REASONS FOR CONSULT : ESRD ON HD M W F AND SAT NEEDS FOR URGENT HD ANEMIA OF CKD PT IS WELL KNOWN TO ME . HPI: Patient a 30 year old female with a past medical history significant for gastroparesis, DM, HTN, right foot abscess, ESRD (HD MWF), [place] 2004, and chronic opiate dependence presenting for medical evaluation of abdominal pain and chest pain (consistent with her baseline). She has a known history of gastroparesis. The patient was requesting pain medication in the emergency room as well as on the floors. Patient states she last had dialysis this past Sunday, and they noted a BP in the 250s systolic. She was advised to receive an early dialysis session the next day, however missed that appointment. She again missed her dialysis appointment today due to feeling ill, and instead decided to come to the ED. Reports feeling SOB after missing dialysis, along with baseline abdominal pain, chest pain, and n/v (non bilious/non bloody). Denies fevers, chills, headache, dizziness, or any additional complaints. Past Patient History - Infectious Disease Hx of Infectious Diseases: MRSA - Tetanus Immunizations Tetanus Immunization: Unknown - Past Medical History & Family History Past Medical History?: Yes - Past Social History Smoking Status: Never Smoked - CARDIAC Hx Hypercholesterolemia: Yes Hx Hypertension: Yes Hx Peripheral Edema: Yes - NEUROLOGICAL Hx Seizures: Yes - HEENT Hx HEENT Problems: No - RENAL Hx Chronic Kidney Disease: Yes Hx Kidney Stones: Yes - ENDOCRINE/METABOLIC Hx Hyperthyroidism: Yes Hx Hypothyroidism: Yes - HEMATOLOGICAL/ONCOLOGICAL Hx Anemia: Yes - INTEGUMENTARY Hx Dermatological Problems: Yes Other/Comment: DRY ITCHY SKIN ;multiple/generalized dark spots on skin - MUSCULOSKELETAL/RHEUMATOLOGICAL Hx Fractures: Yes (Sep 2012 L foot) - GASTROINTESTINAL Hx Gall Bladder Disease: Yes (gallbladder removed) Hx Gastritis: Yes Hx Pancreatitis: Yes (chronic) - GENITOURINARY/GYNECOLOGICAL Hx Genitourinary Disorders: No - PSYCHIATRIC Hx Anxiety: Yes Hx Substance Use: No - SURGICAL HISTORY Hx Cholecystectomy: Yes Hx Coronary Stent: Yes - ANESTHESIA Hx Anesthesia: Yes Hx Anesthesia Reactions: No Hx Malignant Hyperthermia: No Meds Allergies/Adverse Reactions: Allergies Allergy/AdvReac Type Severity Reaction Status Date / Time ketorolac tromethamine Allergy RASH Verified 10/30/16 15:32 [From Toradol] latex Allergy RASH Verified 10/30/16 15:32 morphine Allergy RASH Verified 10/30/16 15:32 tramadol Allergy RASH Verified 10/30/16 15:32 - Medications Medications: Current Medications Alprazolam (Xanax) 1 mg PO Q8H PRN PRN Reason: Anxiety Last Admin: 11/16/16 19:29 Dose: 1 mg Calcium Acetate (Phoslo) 667 mg PO TIDCC [facility] Last Admin: 11/16/16 17:50 Dose: 667 mg Clonidine HCl (Catapres) 0.3 mg PO TID [facility] Last Admin: 11/16/16 17:49 Dose: 0.3 mg Diphenhydramine HCl (Benadryl) 25 mg IVP Q6H PRN PRN Reason: Agitation Last Admin: 11/16/16 17:59 Dose: 25 mg Docusate Sodium (Colace) 100 mg PO BID [facility] Last Admin: 11/16/16 17:49 Dose: 100 mg Famotidine (Pepcid) 20 mg PO DAILY [facility] Last Admin: 11/16/16 10:23 Dose: 20 mg Hydralazine HCl (Apresoline) 10 mg IVP Q6H PRN PRN Reason: Systolic Blood Pressure Last Admin: 11/16/16 11:40 Dose: 10 mg Insulin Aspart (Novolog) 6 unit SC AC [facility] Last Admin: 11/16/16 17:01 Dose: Not Given Insulin Aspart (Novolog) 0 unit SC ACHS [facility] PRN Reason: Protocol Last Admin: 11/16/16 21:42 Dose: Not Given Insulin Detemir (Levemir) 12 unit SC Q12 [facility] Last Admin: 11/16/16 21:58 Dose: 12 unit Lorazepam (Ativan) 1 mg IVP Q4H PRN PRN Reason: Anxiety Last Admin: 11/16/16 21:57 Dose: 1 mg Metoclopramide HCl (Reglan) 10 mg PO DAILY [facility] Last Admin: 11/16/16 10:23 Dose: 10 mg Nifedipine (Procardia Xl) 60 mg PO BID [facility] Last Admin: 11/16/16 17:50 Dose: 60 mg Ondansetron HCl (Zofran Inj) 4 mg IVP Q6H PRN PRN Reason: Nausea/Vomiting Last Admin: 11/16/16 10:24 Dose: 4 mg Rivaroxaban (Xarelto) 15 mg PO DAILY [facility] Sevelamer Carbonate (Renvela) 2,400 mg PO TIDCC [facility] Last Admin: 11/16/16 17:50 Dose: 2,400 mg Results - Vital Signs Recent Vital Signs: Last Vital Signs Temp 97.5 F L 11/16/16 16:00 Pulse 80 11/16/16 16:00 Resp 20 11/16/16 16:00 BP 114/70 11/16/16 16:00 Pulse Ox 98 11/16/16 16:00 - Labs Result Diagrams: 11/16/16 05:46 11/16/16 05:46 Labs: Laboratory Results - last 24 hr 11/16/16 11/16/16 11/16/16 00:11 01:55 05:46 WBC 7.7 RBC 2.20 L Hgb 6.7 L D Hct 20.4 L MCV 93.0 MCH 30.4 MCHC 32.7 L RDW 20.4 H Plt Count 232 D MPV 8.0 Neut % (Auto) 78.6 H Lymph % (Auto) 9.0 L Boyle % (Auto) 7.6 Eos % (Auto) 3.8 Baso % (Auto) 1.0 Neut # 6.0 Lymph # 0.7 L Boyle # 0.6 Eos # 0.3 Baso # 0.1 Neutrophils % (Manual) 75 Band Neutrophils % 1 Lymphocytes % (Manual) 9 L Monocytes % (Manual) 8 Eosinophils % (Manual) 4 Basophils % (Manual) 1 Platelet Estimate Normal Hypochromasia (manual) Slight Poikilocytosis (manual Slight Anisocytosis (manual) Slight Tear Drop Cells Slight Cisco Cells Slight PT 15.4 H INR 1.4 Sodium 138 Potassium 3.8 Chloride 99 Carbon Dioxide 21 L Anion Gap 22 H BUN 36 H Creatinine 4.5 H Est GFR ( Amer) 14 Est GFR (Non-Af Amer) 12 POC Glucose (mg/dL) 169 H Random Glucose 191 H Calcium 5.7 L* Phosphorus 4.3 Magnesium 1.7 Total Bilirubin 0.5 AST 27 ALT 26 Alkaline Phosphatase 72 Total Creatine Kinase 101 60 CK-MB (Mass) 2.33 1.33 Troponin I, Quant 0.1800 H* 0.1080 Total Protein 5.4 L Albumin 2.9 L D Globulin 2.5 Albumin/Globulin Ratio 1.2 Blood Type Antibody Screen 11/16/16 11/16/16 11/16/16 09:37 10:35 16:29 WBC RBC Hgb Hct MCV MCH MCHC RDW Plt Count MPV Neut % (Auto) Lymph % (Auto) Boyle % (Auto) Eos % (Auto) Baso % (Auto) Neut # Lymph # Boyle # Eos # Baso # Neutrophils % (Manual) Band Neutrophils % Lymphocytes % (Manual) Monocytes % (Manual) Eosinophils % (Manual) Basophils % (Manual) Platelet Estimate Hypochromasia (manual) Poikilocytosis (manual Anisocytosis (manual) Tear Drop Cells [place] Cells PT INR Sodium Potassium Chloride Carbon Dioxide Anion Gap BUN Creatinine Est GFR ( Amer) Est GFR (Non-Af Amer) POC Glucose (mg/dL) 315 H 77 Random Glucose Calcium Phosphorus Magnesium Total Bilirubin AST ALT Alkaline Phosphatase Total Creatine Kinase CK-MB (Mass) Troponin I, Quant Total Protein Albumin Globulin Albumin/Globulin Ratio Blood Type A POSITIVE Antibody Screen Negative 11/16/16 21:11 WBC RBC Hgb Hct MCV MCH MCHC RDW Plt Count MPV Neut % (Auto) Lymph % (Auto) Boyle % (Auto) Eos % (Auto) Baso % (Auto) Neut # Lymph # Boyle # Eos # Baso # Neutrophils % (Manual) Band Neutrophils % Lymphocytes % (Manual) Monocytes % (Manual) Eosinophils % (Manual) Basophils % (Manual) Platelet Estimate Hypochromasia (manual) Poikilocytosis (manual Anisocytosis (manual) Tear Drop Cells Cisco Cells PT INR Sodium Potassium Chloride Carbon Dioxide Anion Gap BUN Creatinine Est GFR ( Amer) Est GFR (Non-Af Amer) POC Glucose (mg/dL) 236 H Random Glucose Calcium Phosphorus Magnesium Total Bilirubin AST ALT Alkaline Phosphatase Total Creatine Kinase CK-MB (Mass) Troponin I, Quant Total Protein Albumin Globulin Albumin/Globulin Ratio Blood Type Antibody Screen Assessment & Plan - Assessment and Plan (Free Text) Assessment: ESRD ON HD M W F AND SAT .. TO BE C/O URGENT NEED FOT HD .. RECIEDWD HD YESTERDAY WITH REMOVAL OF 4 L ANEMIA OF CKD .. RECIEVED 2 U PRBC .. 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
--- NOTE | 2016-11-17 03:46 | CP.PCM.PN ---
Subjective - Date & Time of Evaluation Date of Evaluation: 11/17/16 Time of Evaluation: 14:30 - Subjective Subjective: House Doctor Note: I went to evaluate patient since patient has been persistently calling staff asking for narcotic medications. Patient reports pain at right IJ site. Patient was informed that no narcotics will be dispensed as she has no indication for Dilaudid 3 mg requested. Patient was offered Ibuprofen and other similar medications, but patient states "I already took them" and refuses. As per EMR, patient has not been given any Ibuprofen or similar medication. Patient also reports abdominal pain secondary to gastroparesis, which would not be helped by further narcotics. As per nursing patient is refusing blood work for repeat CBC after unit of blood given earlier today. Patient became loud and disruptive on medical floor and nursing apartment maintenance supervisor called security who is now at bedside. Patient has history of disruptive behavior during past admissions as witnessed by me. Patient's most recent vitals were reviewed: 98.1, 82, 122/76, 20, 98 % Room Air. Hospitalist notified. Austin Sy, PGY 2. Objective - Vital Signs/Intake and Output Vital Signs (last 24 hours): Temp Pulse Resp BP Pulse Ox 98.1 F 75 20 132/76 98 11/16/16 23:05 11/17/16 00:45 11/16/16 23:05 11/16/16 23:05 11/16/16 23:05 Intake and Output: 11/16/16 11/17/16 18:59 06:59 Intake Total 325 Balance 325 - Medications Medications: Current Medications Alprazolam (Xanax) 1 mg PO Q8H PRN PRN Reason: Anxiety Last Admin: 11/16/16 19:29 Dose: 1 mg Calcium Acetate (Phoslo) 667 mg PO TIDCC [facility] Last Admin: 11/16/16 17:50 Dose: 667 mg Clonidine HCl (Catapres) 0.3 mg PO TID [facility] Last Admin: 11/16/16 17:49 Dose: 0.3 mg Diphenhydramine HCl (Benadryl) 25 mg IVP Q6H PRN PRN Reason: Agitation Last Admin: 11/16/16 22:59 Dose: 25 mg Docusate Sodium (Colace) 100 mg PO BID [facility] Last Admin: 11/16/16 17:49 Dose: 100 mg Famotidine (Pepcid) 20 mg PO DAILY [facility] Last Admin: 11/16/16 10:23 Dose: 20 mg Hydralazine HCl (Apresoline) 10 mg IVP Q6H PRN PRN Reason: Systolic Blood Pressure Last Admin: 11/16/16 11:40 Dose: 10 mg Insulin Aspart (Novolog) 6 unit SC AC [facility] Last Admin: 11/16/16 17:01 Dose: Not Given Insulin Aspart (Novolog) 0 unit SC ACHS [facility] PRN Reason: Protocol Last Admin: 11/16/16 21:42 Dose: Not Given Insulin Detemir (Levemir) 12 unit SC Q12 [facility] Last Admin: 11/16/16 21:58 Dose: 12 unit Lorazepam (Ativan) 1 mg IVP Q4H PRN PRN Reason: Anxiety Last Admin: 11/17/16 02:19 Dose: 1 mg Metoclopramide HCl (Reglan) 10 mg PO DAILY [facility] Last Admin: 11/16/16 10:23 Dose: 10 mg Nifedipine (Procardia Xl) 60 mg PO BID [facility] Last Admin: 11/16/16 17:50 Dose: 60 mg Ondansetron HCl (Zofran Inj) 4 mg IVP Q6H PRN PRN Reason: Nausea/Vomiting Last Admin: 11/16/16 10:24 Dose: 4 mg Rivaroxaban (Xarelto) 15 mg PO DAILY [facility] Sevelamer Carbonate (Renvela) 2,400 mg PO TIDCC [facility] Last Admin: 11/16/16 17:50 Dose: 2,400 mg - Labs Labs: 11/16/16 05:46 11/16/16 05:46 PT 15.4 SECONDS (9.7-12.2) H 11/16/16 05:46 INR 1.4 11/16/16 05:46 APTT 32 SECONDS (21-34) 11/15/16 14:51
[2016-11-17] MEDS: DiphenhydrAMINE 50 mg/ml Inj IVP PRN ×2 (04:09→10:55)
--- NOTE | 2016-11-17 07:39 | CP.PCM.PN ---
Objective - Vital Signs/Intake and Output Vital Signs (last 24 hours): Temp Pulse Resp BP Pulse Ox 98.1 F 75 20 132/76 98 11/16/16 23:05 11/17/16 00:45 11/16/16 23:05 11/16/16 23:05 11/16/16 23:05 Intake and Output: 11/17/16 11/17/16 06:59 18:59 Intake Total 200 Balance 200 - Medications Medications: Current Medications Alprazolam (Xanax) 1 mg PO Q8H PRN PRN Reason: Anxiety Last Admin: 11/16/16 19:29 Dose: 1 mg Calcium Acetate (Phoslo) 667 mg PO TIDCC [facility] Last Admin: 11/16/16 17:50 Dose: 667 mg Clonidine HCl (Catapres) 0.3 mg PO TID [facility] Last Admin: 11/16/16 17:49 Dose: 0.3 mg Diphenhydramine HCl (Benadryl) 25 mg IVP Q6H PRN PRN Reason: Agitation Last Admin: 11/17/16 04:09 Dose: 25 mg Docusate Sodium (Colace) 100 mg PO BID [facility] Last Admin: 11/16/16 17:49 Dose: 100 mg Famotidine (Pepcid) 20 mg PO DAILY [facility] Last Admin: 11/16/16 10:23 Dose: 20 mg Hydralazine HCl (Apresoline) 10 mg IVP Q6H PRN PRN Reason: Systolic Blood Pressure Last Admin: 11/16/16 11:40 Dose: 10 mg Insulin Aspart (Novolog) 6 unit SC AC [facility] Last Admin: 11/16/16 17:01 Dose: Not Given Insulin Aspart (Novolog) 0 unit SC ACHS [facility] PRN Reason: Protocol Last Admin: 11/16/16 21:42 Dose: Not Given Insulin Detemir (Levemir) 12 unit SC Q12 [facility] Last Admin: 11/16/16 21:58 Dose: 12 unit Lorazepam (Ativan) 1 mg IVP Q4H PRN PRN Reason: Anxiety Last Admin: 11/17/16 06:34 Dose: 1 mg Metoclopramide HCl (Reglan) 10 mg PO DAILY [facility] Last Admin: 11/16/16 10:23 Dose: 10 mg Nifedipine (Procardia Xl) 60 mg PO BID [facility] Last Admin: 11/16/16 17:50 Dose: 60 mg Ondansetron HCl (Zofran Inj) 4 mg IVP Q6H PRN PRN Reason: Nausea/Vomiting Last Admin: 11/16/16 10:24 Dose: 4 mg Rivaroxaban (Xarelto) 15 mg PO DAILY [facility] Sevelamer Carbonate (Renvela) 2,400 mg PO TIDCC [facility] Last Admin: 11/16/16 17:50 Dose: 2,400 mg - Labs Labs: 11/16/16 05:46 11/16/16 05:46 PT 15.4 SECONDS (9.7-12.2) H 11/16/16 05:46 INR 1.4 11/16/16 05:46 APTT 32 SECONDS (21-34) 11/15/16 14:51
[2016-11-17] MEDS: (Novolog) Insulin Aspart, Recombinant 100 u/ml 10 ml vial SC SCH ×2 (09:04→09:05)
[2016-11-17] MEDS: Insulin Detemir 100 units/ml Vial (Levemir) SC SCH (11:00)
[2016-11-17] MEDS: NIFEdipine 60 mg ER Tab PO SCH (11:00)
[2016-11-17 11:45] LABS: BASO # 0.1 K/uL (0.0-0.2); BASO % 1.1 % (0.0-2.0); EOS # 0.4 K/uL (0.0-0.7); EOS % 5.6 % (0.0-4.0); HEMATOCRIT 27.9 % (34.0-47.0); LYMPH % 14.8 % (20.0-40.0); MEAN CELL VOLUME 92.5 fL (81.0-99.0); MEAN CORPUSCULAR HEMOGLOBIN 30.1 pg (27.0-31.0); MEAN CORPUSCULAR HGB CONC 32.6 g/dL (33.0-37.0); MEAN PLATELET VOLUME 7.6 fL (7.2-11.7); MONO # 0.5 K/uL (0.0-0.8); RED CELL DISTRIBUTION WIDTH 19.3 % (11.5-14.5); WHITE BLOOD COUNT 6.5 K/uL (4.8-10.8)
[2016-11-17] MEDS ORDERED: DiphenhydrAMINE 50 mg/ml Inj IVP STA (11:52)
[2016-11-17 11:57] LABS: POTASSIUM 4.9 mmol/L (3.6-5.2)
[2016-11-17 11:59] LABS: ALB/GLOB RATIO 1.3 (1.0-2.1); BILIRUBIN,TOTAL 0.4 mg/dL (0.2-1.3); TOTAL PROTEIN 6.9 g/dL (6.3-8.3)
[2016-11-17 12:00] LABS: CALCIUM 6.2 mg/dl (8.6-10.4); MAGNESIUM 2.2 mg/dL (1.6-2.3); PHOSPHOROUS 7.8 mg/dL (2.5-4.5)
--- NOTE | 2016-11-17 12:13 | CP.PCM.PN ---
Subjective - Date & Time of Evaluation Date of Evaluation: 11/17/16 Time of Evaluation: 12:11 - Subjective Subjective: leg pains. Objective - Vital Signs/Intake and Output Vital Signs (last 24 hours): Temp Pulse Resp BP Pulse Ox 97.9 F 74 20 150/95 H 100 11/17/16 08:00 11/17/16 08:00 11/17/16 08:00 11/17/16 08:00 11/17/16 08:00 Intake and Output: 11/17/16 11/17/16 06:59 18:59 Intake Total 200 Balance 200 - Medications Medications: Current Medications Alprazolam (Xanax) 1 mg PO Q8H PRN PRN Reason: Anxiety Last Admin: 11/17/16 11:12 Dose: 1 mg Calcium Acetate (Phoslo) 667 mg PO TIDCC [facility] Last Admin: 11/17/16 09:04 Dose: 667 mg Clonidine HCl (Catapres) 0.3 mg PO TID [facility] Last Admin: 11/17/16 10:59 Dose: Not Given Diphenhydramine HCl (Benadryl) 25 mg IVP Q6H PRN PRN Reason: Agitation Last Admin: 11/17/16 10:55 Dose: 25 mg Docusate Sodium (Colace) 100 mg PO BID [facility] Last Admin: 11/17/16 11:00 Dose: 100 mg Famotidine (Pepcid) 20 mg PO DAILY [facility] Last Admin: 11/17/16 11:00 Dose: 20 mg Hydralazine HCl (Apresoline) 10 mg IVP Q6H PRN PRN Reason: Systolic Blood Pressure Last Admin: 11/16/16 11:40 Dose: 10 mg Insulin Aspart (Novolog) 6 unit SC AC [facility] Last Admin: 11/17/16 09:04 Dose: 6 unit Insulin Aspart (Novolog) 0 unit SC ACHS [facility] PRN Reason: Protocol Last Admin: 11/17/16 09:05 Dose: 2 unit Insulin Detemir (Levemir) 12 unit SC Q12 [facility] Last Admin: 11/17/16 11:00 Dose: 12 unit Lorazepam (Ativan) 1 mg IVP Q4H PRN PRN Reason: Anxiety Last Admin: 11/17/16 10:55 Dose: 1 mg Metoclopramide HCl (Reglan) 10 mg PO DAILY [facility] Last Admin: 11/17/16 11:00 Dose: 10 mg Nifedipine (Procardia Xl) 60 mg PO BID [facility] Last Admin: 11/17/16 11:00 Dose: Not Given Ondansetron HCl (Zofran Inj) 4 mg IVP Q6H PRN PRN Reason: Nausea/Vomiting Last Admin: 11/17/16 10:55 Dose: 4 mg Rivaroxaban (Xarelto) 15 mg PO DAILY [facility] Sevelamer Carbonate (Renvela) 2,400 mg PO TIDCC [facility] Last Admin: 11/17/16 09:04 Dose: Not Given - Labs Labs: 11/17/16 11:40 11/17/16 11:40 PT 15.4 SECONDS (9.7-12.2) H 11/16/16 05:46 INR 1.4 11/16/16 05:46 APTT 32 SECONDS (21-34) 11/15/16 14:51 - Constitutional Appears: Chronically Ill - Respiratory Exam Respiratory Exam: Clear to Ausculation Bilateral - Cardiovascular Exam Cardiovascular Exam: REGULAR RHYTHM - Neurological Exam Neurological Exam: Alert Assessment and Plan - Assessment and Plan (Free Text) Assessment: cath noted.no cad.ef 45%. ct hemodyalysis.medical rx,coreg & eladio/arb as tolerated. will sign off, thanks
[2016-11-17 17:06] VITALS: PULSE 94
[2016-11-17 17:33] VITALS: BP 172/98; TEMP 98.2
--- NOTE | 2016-11-17 21:17 | CP.PCM.DIS ---
<Herman Cheema - Last Filed: 11/20/16 09:24> Provider - Provider Date of Admission: 11/15/16 17:28 Attending physician: Purvi Quezada DO Consults: Cardio: Dr. Casanova Nephro: Dr. Phillips Time Spent in preparation of Discharge (in minutes): 40 Hospital Course - Lab Results Lab Results: Most Recent Lab Values WBC 6.5 K/uL (4.8-10.8) 11/17/16 11:40 RBC 3.01 Mil/uL (3.80-5.20) L 11/17/16 11:40 Hgb 9.1 g/dL (11.0-16.0) L D 11/17/16 11:40 Hct 27.9 % (34.0-47.0) L 11/17/16 11:40 MCV 92.5 fL (81.0-99.0) 11/17/16 11:40 MCH 30.1 pg (27.0-31.0) 11/17/16 11:40 MCHC 32.6 g/dL (33.0-37.0) L 11/17/16 11:40 RDW 19.3 % (11.5-14.5) H 11/17/16 11:40 Plt Count 264 K/uL (130-400) 11/17/16 11:40 MPV 7.6 fL (7.2-11.7) 11/17/16 11:40 Neut % (Auto) 70.5 % (50.0-75.0) 11/17/16 11:40 Lymph % (Auto) 14.8 % (20.0-40.0) L 11/17/16 11:40 [place] % (Auto) 8.0 % (0.0-10.0) 11/17/16 11:40 Eos % (Auto) 5.6 % (0.0-4.0) H 11/17/16 11:40 Baso % (Auto) 1.1 % (0.0-2.0) 11/17/16 11:40 Neut # 4.6 K/uL (1.8-7.0) 11/17/16 11:40 Lymph # 1.0 K/uL (1.0-4.3) 11/17/16 11:40 [place] # 0.5 K/uL (0.0-0.8) 11/17/16 11:40 Eos # 0.4 K/uL (0.0-0.7) 11/17/16 11:40 Baso # 0.1 K/uL (0.0-0.2) 11/17/16 11:40 Neutrophils % (Manual) 75 % (50-75) 11/16/16 05:46 Band Neutrophils % 1 % (0-2) 11/16/16 05:46 Lymphocytes % (Manual) 9 % (20-40) L 11/16/16 05:46 Monocytes % (Manual) 8 % (0-10) 11/16/16 05:46 Eosinophils % (Manual) 4 % (0-4) 11/16/16 05:46 Basophils % (Manual) 1 % (0-2) 11/16/16 05:46 Platelet Estimate Normal (NORMAL) 11/16/16 05:46 Hypochromasia (manual) Slight 11/16/16 05:46 Poikilocytosis (manual Slight 11/16/16 05:46 Anisocytosis (manual) Slight 11/16/16 05:46 Tear Drop Cells Slight 11/16/16 05:46 [place] Cells Slight 11/16/16 05:46 PT 15.4 SECONDS (9.7-12.2) H 11/16/16 05:46 INR 1.4 11/16/16 05:46 APTT 32 SECONDS (21-34) 11/15/16 14:51 Sodium 132 mmol/L (132-148) 11/17/16 11:40 Potassium 4.9 mmol/L (3.6-5.2) 11/17/16 11:40 Chloride 90 mmol/L (98-107) L 11/17/16 11:40 Carbon Dioxide 23 mmol/L (22-30) 11/17/16 11:40 Anion Gap 24 (10-20) H 11/17/16 11:40 BUN 68 mg/dL (7-17) H 11/17/16 11:40 Creatinine 8.1 MG/DL (0.7-1.2) H* D 11/17/16 11:40 Est GFR ( Amer) 7 11/17/16 11:40 Est GFR (Non-Af Amer) 6 11/17/16 11:40 POC Glucose (mg/dL) 163 mg/dL (65-110) H 11/17/16 17:23 Random Glucose 145 mg/dL (65-105) H 11/17/16 11:40 Calcium 6.2 mg/dl (8.6-10.4) L 11/17/16 11:40 Phosphorus 7.8 mg/dL (2.5-4.5) H 11/17/16 11:40 Magnesium 2.2 mg/dL (1.6-2.3) 11/17/16 11:40 Total Bilirubin 0.4 mg/dL (0.2-1.3) 11/17/16 11:40 AST 17 U/L (14-36) 11/17/16 11:40 ALT 22 U/L (9-52) 11/17/16 11:40 Alkaline Phosphatase 98 U/L (38-126) 11/17/16 11:40 Total Creatine Kinase 66 U/L (30-135) 11/17/16 11:40 CK-MB (Mass) 1.53 ng/mL (0.0-3.38) 11/17/16 11:40 Troponin I 0.0940 ng/mL (0.00-0.120) 11/15/16 14:51 Troponin I, Quant 0.1200 ng/mL (0.00-0.120) 11/17/16 11:40 NT-Pro-B Natriuret Pep [id number] pg/mL (0-450) H 11/15/16 14:51 Total Protein 6.9 g/dL (6.3-8.3) 11/17/16 11:40 Albumin 3.8 g/dL (3.5-5.0) 11/17/16 11:40 Globulin 3.1 gm/dL (2.2-3.9) 11/17/16 11:40 Albumin/Globulin Ratio 1.3 (1.0-2.1) 11/17/16 11:40 Blood Type A POSITIVE 11/16/16 09:37 Antibody Screen Negative 11/16/16 09:37 - Hospital Course Hospital Course: Upon hospital admission: HPI: Patient a 30 year old female with a past medical history significant for gastroparesis, DM, HTN, right foot abscess, ESRD (HD MWF ), [place] 2004, and chronic opiate dependence presenting for medical evaluation of abdominal pain and chest pain (consistent with her baseline). She has a known history of gastroparesis. The patient was requesting pain medication in the emergency room as well as on the floors. Patient states she last had dialysis this past Sunday, and they noted a BP in the 250s systolic. She was advised to receive an early dialysis session the next day, however missed that appointment. She again missed her dialysis appointment today due to feeling ill , and instead decided to come to the ED. Reports feeling SOB after missing dialysis, along with baseline abdominal pain, chest pain, and n/v (non bilious/ non bloody). Denies fevers, chills, headache, dizziness, or any additional complaints. PMD: Dr. Franky Hanson: Dr. Phillips PMH: gastroparesis, DM, HTN, Right foot abscess, ESRD on HD MWF, 2004, chronic opiate dependence Meds: Extensive Medication list is updated in EMR Allergy: Toradol, Latex, Morphine, Tramadol PSH: exlap for adhesions 2005 and 2009. Cholecystectomy 2009. L arm AVF 2014, I& D right foot abscess FH: DM mother and unknown ca in mother's family Social: denied EtOH, drugs, smoking. Lives with mother Note: During this hospitalization, and most recent visits to [facility], our patient would constantly ask nursing staff and the medical team for opioid medications. She states that "I received them in the ED, why can't I just have some Dilaudid while I'm in the hospital, I'm in pain." When offered alternatives , she would immediately refuse, stating that other medications have been tried, and do nothing for her. She would outright refuse. Additionally, she would attempt to use opioid administration as a bargaining chip, otherwise refusing to comply with her medical treatment. For example, she would refuse dialysis unless given Dilaudid and Benadryl. The main purpose for this admission was for her to receive the dialysis that she missed on 2 consecutive days, resulting in fluid overload and worsening pulmonary and cardiac function. During hospital course, the patient was evaluated and treated for the following : (1) ESRD on HD for which she received emergent dialysis session 11/15. Her HD MWFS schedule. A consult was placed to Nephrology, Dr. Phillips who managed her dialysis sessions. (2) Acute blood loss anemia with initial Hgb 10.3. During a dialysis session, she lost moderate blood from her fistula, resulting in a Hgb of 6.7. She was Transfused 1 unit PRBC bring her Hgb to 9.1. (3) Abdominal Pain which is a chronic finding in our patient, secondary to gastroparesis. She was placed on a renal diet, and provided Reglan 10 mg po daily, Zofran 4 mg IVP q6h prn. Per Dr. Wilkins she is not to receive dilaudid or opiates in any form. Instead, her anxiety is managed with Xanax, Ativan, and Benadryl. The attendings covering Dr. Wilkins agreed with this plan and continued it from her prior admission. (4) Hypertension tx with Clonidine 0.3 mg po TID, Procardia 60 mg BID, and Hydralazine 10mg IVP Q6H PRN. (5) Chest Pain for which Cardiology consult was placed to Dr. Casanova. ZAK's and EKG were negative, and recent cardiac cath noted negative CAD and EF 45%. (6) DM tx with Levemir 12 units SC Q12H, Novolog 6 unit SC AC, and ISS. (7) Anxiety/Agitation tx with Xanax 1mg PO Q8H PRN, Benadry 25mg IV PRN, and Ativan 1mg Q4H PRN. Overnight on 11/17/16, the patient was persistently calling staff asking for narcotic medications. Patient reports pain at right IJ site. Patient was informed that no narcotics will be dispensed as she has no indication for Dilaudid 3 mg requested. Patient was offered Ibuprofen and other similar medications, but patient states "I already took them" and refuses. As per EMR, patient has not been given any Ibuprofen or similar medication. Patient also reports abdominal pain secondary to gastroparesis, which would not be helped by further narcotics. As per nursing patient is refusing blood work for repeat CBC after unit of blood given earlier today. On this evening, patient became loud and disruptive on medical floor and nursing dye house supervisor called security who is now at bedside. Patient has history of disruptive behavior during past admissions as witnessed by myself and several medical residents, attendings, and staff. Upon hospital discharge, the patient was provided with the following instructions: Patient is stable for discharge per Dr. Martinez. Patient should resume all home medications as outlined in this document. Unfortunately, opioids could not be prescribed for home use. 1. Please make an appointment and follow up with your Primary Doctor, Dr. Wilkins within one week of discharge. 2. You are recommended to follow up for evaluation and possible placement of a Gastric Pace Maker to assist with your gastroparesis related pain. You previously discussed this with Dr. Wilkins and saw the appropriate physician. Please follow up with that team. 3. You were recommended to follow up with a Psychiatrist, Dr. Seals on your prior discharge in October 12, 2016. If you have not done so already, you are urged to meet with his team. 4. Continue with HD Sunday, Sunday, and Sunday 5. 6 Small meals daily for gastroparesis 6. Make sure 6 small meals are in accordance with diabetic, heart healthy, and dialysis dietary restrictions 7. Take medications in accordance with all prescriptions Patient should return to ED immediately if symptoms return or worsen. Instructions discussed with patient who understood and agreed. This is a summary of the patient's hospital admission, see chart for comprehensive detail. - Date & Time of H&P Date of H&P: 11/15/16 Time of H&P: 17:16 Discharge Exam - Additional Findings Additional findings: - Constitutional Appears: Non-toxic, No Acute Distress - Head Exam Head Exam: ATRAUMATIC, NORMOCEPHALIC - ENT Exam ENT Exam: Mucous Membranes Moist - Respiratory Exam Respiratory Exam: Clear to Ausculation Bilateral, NORMAL BREATHING PATTERN. absent: Rhonchi - Cardiovascular Exam Cardiovascular Exam: +S1, +S2 - GI/Abdominal Exam GI & Abdominal Exam: Normal Bowel Sounds, Soft, Tenderness. absent: Distended, Firm, Guarding - Extremities Exam Additional comments: -bandages over fistula, clean/dry/intact - Neurological Exam Neurological Exam: Alert, Awake, Oriented x3 - Psychiatric Exam Psychiatric exam: Agitated, Normal Affect. - Skin Skin Exam: Dry, Warm, Intact Discharge Plan - Follow Up Plan Condition: STABLE Disposition: HOME/ ROUTINE Instructions: Cellulitis (DC), Dialysis Diet (DC), Chronic Pain (DC), End Stage Kidney Disease (DC) Additional Instructions: Patient is stable for discharge per Dr. Martinez. Patient should resume all home medications as outlined in this document. Unfortunately, opioids could not be prescribed for home use. 1. Please make an appointment and follow up with your Primary Doctor, Dr. Wilkins within one week of discharge. 2. You are recommended to follow up for evaluation and possible placement of a Gastric Pace Maker to assist with your gastroparesis related pain. You previously discussed this with Dr. Wilkins and saw the appropriate physician. Please follow up with that team. 3. You were recommended to follow up with a Psychiatrist, Dr. Seals on your prior discharge in October 12, 2016. If you have not done so already, you are urged to meet with his team. 4. Continue with HD Sunday, Sunday, and Sunday 5. 6 Small meals daily for gastroparesis 6. Make sure 6 small meals are in accordance with diabetic, heart healthy, and dialysis dietary restrictions 7. Take medications in accordance with all prescriptions Patient should return to ED immediately if symptoms return or worsen. Instructions discussed with patient who understood and agreed. <Herman Martinez - Last Filed: 11/27/16 07:00> Provider - Provider Date of Admission: 11/15/16 17:28 Attending physician: Purvi Quezada, [facility] Course - Lab Results Lab Results: Most Recent Lab Values WBC 6.5 K/uL (4.8-10.8) 11/17/16 11:40 RBC 3.01 Mil/uL (3.80-5.20) L 11/17/16 11:40 Hgb 9.1 g/dL (11.0-16.0) L D 11/17/16 11:40 Hct 27.9 % (34.0-47.0) L 11/17/16 11:40 MCV 92.5 fL (81.0-99.0) 11/17/16 11:40 MCH 30.1 pg (27.0-31.0) 11/17/16 11:40 MCHC 32.6 g/dL (33.0-37.0) L 11/17/16 11:40 RDW 19.3 % (11.5-14.5) H 11/17/16 11:40 Plt Count 264 K/uL (130-400) 11/17/16 11:40 MPV 7.6 fL (7.2-11.7) 11/17/16 11:40 Neut % (Auto) 70.5 % (50.0-75.0) 11/17/16 11:40 Lymph % (Auto) 14.8 % (20.0-40.0) L 11/17/16 11:40 [place] % (Auto) 8.0 % (0.0-10.0) 11/17/16 11:40 Eos % (Auto) 5.6 % (0.0-4.0) H 11/17/16 11:40 Baso % (Auto) 1.1 % (0.0-2.0) 11/17/16 11:40 Neut # 4.6 K/uL (1.8-7.0) 11/17/16 11:40 Lymph # 1.0 K/uL (1.0-4.3) 11/17/16 11:40 [place] # 0.5 K/uL (0.0-0.8) 11/17/16 11:40 Eos # 0.4 K/uL (0.0-0.7) 11/17/16 11:40 Baso # 0.1 K/uL (0.0-0.2) 11/17/16 11:40 Neutrophils % (Manual) 75 % (50-75) 11/16/16 05:46 Band Neutrophils % 1 % (0-2) 11/16/16 05:46 Lymphocytes % (Manual) 9 % (20-40) L 11/16/16 05:46 Monocytes % (Manual) 8 % (0-10) 11/16/16 05:46 Eosinophils % (Manual) 4 % (0-4) 11/16/16 05:46 Basophils % (Manual) 1 % (0-2) 11/16/16 05:46 Platelet Estimate Normal (NORMAL) 11/16/16 05:46 Hypochromasia (manual) Slight 11/16/16 05:46 Poikilocytosis (manual Slight 11/16/16 05:46 Anisocytosis (manual) Slight 11/16/16 05:46 Tear Drop Cells Slight 11/16/16 05:46 [place] Cells Slight 11/16/16 05:46 PT 15.4 SECONDS (9.7-12.2) H 11/16/16 05:46 INR 1.4 11/16/16 05:46 APTT 32 SECONDS (21-34) 11/15/16 14:51 Sodium 132 mmol/L (132-148) 11/17/16 11:40 Potassium 4.9 mmol/L (3.6-5.2) 11/17/16 11:40 Chloride 90 mmol/L (98-107) L 11/17/16 11:40 Carbon Dioxide 23 mmol/L (22-30) 11/17/16 11:40 Anion Gap 24 (10-20) H 11/17/16 11:40 BUN 68 mg/dL (7-17) H 11/17/16 11:40 Creatinine 8.1 MG/DL (0.7-1.2) H* D 11/17/16 11:40 Est GFR ( Amer) 7 11/17/16 11:40 Est GFR (Non-Af Amer) 6 11/17/16 11:40 POC Glucose (mg/dL) 163 mg/dL (65-110) H 11/17/16 17:23 Random Glucose 145 mg/dL (65-105) H 11/17/16 11:40 Calcium 6.2 mg/dl (8.6-10.4) L 11/17/16 11:40 Phosphorus 7.8 mg/dL (2.5-4.5) H 11/17/16 11:40 Magnesium 2.2 mg/dL (1.6-2.3) 11/17/16 11:40 Total Bilirubin 0.4 mg/dL (0.2-1.3) 11/17/16 11:40 AST 17 U/L (14-36) 11/17/16 11:40 ALT 22 U/L (9-52) 11/17/16 11:40 Alkaline Phosphatase 98 U/L (38-126) 11/17/16 11:40 Total Creatine Kinase 66 U/L (30-135) 11/17/16 11:40 CK-MB (Mass) 1.53 ng/mL (0.0-3.38) 11/17/16 11:40 Troponin I 0.0940 ng/mL (0.00-0.120) 11/15/16 14:51 Troponin I, Quant 0.1200 ng/mL (0.00-0.120) 11/17/16 11:40 NT-Pro-B Natriuret Pep [id number] pg/mL (0-450) H 11/15/16 14:51 Total Protein 6.9 g/dL (6.3-8.3) 11/17/16 11:40 Albumin 3.8 g/dL (3.5-5.0) 11/17/16 11:40 Globulin 3.1 gm/dL (2.2-3.9) 11/17/16 11:40 Albumin/Globulin Ratio 1.3 (1.0-2.1) 11/17/16 11:40 Blood Type A POSITIVE 11/16/16 09:37 Antibody Screen Negative 11/16/16 09:37 Attending/Attestation - Attestation I have personally seen and examined this patient.: Yes I have fully participated in the care of the patient.: Yes I have reviewed all pertinent clinical information, including history, physical exam and plan: Yes Notes (Text): Medical Hospitalist: Patient is well known to the medical staff, nurses, social workers, etc. Agree with the above note by the resident. Patient uses very large amounts of IV diluadid and often ask for this. We have explained to her very carefuly that this was not safe and in the long run (as well as short term) that this would cause a lot of harm however she stated she did not agree with this and still wanted IV dilaudid. I explained to her that we could not give this the way she wanted. thank you Herman Martinez
--- NOTE | 2016-11-18 00:44 | CP.PCM.PN ---
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 RECIEVED 2 U PRBC MULTIPLE CO MORBIDITIES C/O CURRENT CARE
--- NOTE | 2016-11-19 09:04 | CARD ---
APPROVED REPORT EKG Measurement Heart [id number] MD [id number] <Conclusion> Sinus tachycardia Possible Left atrial enlargement Left ventricular hypertrophy Nonspecific ST and T wave abnormality Abnormal ECG
--- NOTE | 2016-11-19 16:27 | CARD ---
APPROVED REPORT EKG Measurement Heart [id number] NM [id number] <Conclusion> Normal sinus rhythm Possible Left atrial enlargement Prolonged QT Abnormal ECG
--- NOTE | 2016-11-20 12:35 | CARD ---
APPROVED REPORT EKG Measurement Heart [id number] GA 122P54 [id number] <Conclusion> Sinus tachycardia Minimal voltage criteria for LVH, may be normal variant Borderline ECG
--- NOTE | 2016-11-21 12:08 | CARD ---
APPROVED REPORT EKG Measurement Heart [id number] [place] 122P54 [id number] <Conclusion> Sinus tachycardia Minimal voltage criteria for LVH, may be normal variant Borderline ECG
[2016-11-24 18:47] VITALS: O2SAT 97
== END 2016-11-17 19:25 | disposition home or self-care (01) | DRG 316 ==
LOC: C.ER 14:02 → C.9E 17:28 → C.5T 18:22
PROVIDERS: ADMIT Hospitalist; ATTEND Hospitalist
PROC: 5A1D00Z (ICD-10-PCS; principal; 2016-11-15)
PROC: 30233N1 Transfusion of Nonautologous Red Blood Cells into Peripheral Vein, Percutaneous Approach (ICD-10-PCS; 2016-11-16)
DX: I12.0 Hypertensive chronic kidney disease with stage 5 chronic kidney disease or end stage renal disease (principal); E11.43 Type 2 diabetes mellitus with diabetic autonomic (poly)neuropathy; E11.22 Type 2 diabetes mellitus with diabetic chronic kidney disease; N18.6 End stage renal disease; K31.84 Gastroparesis; D62 Acute posthemorrhagic anemia; F11.20 Opioid dependence, uncomplicated; E05.90 Thyrotoxicosis, unspecified without thyrotoxic crisis or storm; T82.838A Hemorrhage due to vascular prosthetic devices, implants and grafts, initial encounter; L03.115 Cellulitis of right lower limb; I72.8 Aneurysm of other specified arteries; Z79.4 Long term (current) use of insulin; Z99.2 Dependence on renal dialysis; E78.00 Pure hypercholesterolemia, unspecified; E03.9 Hypothyroidism, unspecified; F41.9 Anxiety disorder, unspecified; Y83.2 Surgical operation with anastomosis, bypass or graft as the cause of abnormal reaction of the patient, or of later complication, without mention of misadventure at the time of the procedure; D63.1 Anemia in chronic kidney disease; Z79.01 Long term (current) use of anticoagulants; E83.51 Hypocalcemia

== ENCOUNTER 2016-11-22 12:34 | Emergency (ER) | payer MEDICAID ==
[2016-11-22 12:35] VITALS: BMI 27.4
[2016-11-22 12:48] VITALS: O2SAT 94
[2016-11-22] MEDS ORDERED: HYDROmorphone 1 mg/ml ISec IVP STA (13:32)
--- NOTE | 2016-11-22 13:43 | C.PDOC ---
History Of Present Illness 30 y/o female with PMHx chronic pain, gastroparesis, chronic kidney disease on dialysis, presents to ED with c/o abdominal pain associated with vomiting. Patient was regularly seen by Dr. Wilkins who referred her to f/u with pain management. Patient states she went to pain management across the street today, but states she was unable to be seen as they do not accept her insurance. Patient requesting Dilaudid in ER. Denies fever, chills, diarrhea, urinary symptoms. Notes she had dialysis yesterday. Time Seen by Provider: 11/22/16 13:19 Chief Complaint (Nursing): Abdominal Pain History Per: Patient History/Exam Limitations: no limitations Onset/Duration Of Symptoms: Persistent Current Symptoms Are (Timing): Still Present Location Of Pain/Discomfort: Diffuse Quality Of Discomfort: "Pain" Associated Symptoms: Vomiting. denies: Fever, Chills, Diarrhea, Urinary Symptoms Recent travel outside of the [place]: No Past Medical History Reviewed: Historical Data, Nursing Documentation, Vital Signs Vital Signs: Last Vital Signs Temp 98.1 F 11/22/16 15:16 Pulse 102 H 11/22/16 15:16 Resp 20 11/22/16 15:16 BP 200/100 H 11/22/16 15:16 Pulse Ox 94 L 11/22/16 15:16 - Medical History PMH: Anemia, Anxiety, Diabetes, Fractures (Sep 2012 L foot), Gastritis, Gastrointestinal Ulcer (gastroparesis), Gall Bladder Disease (gallbladder removed), Hepatitis, HTN, Hypercholesterolemia, Hyperthyroidism, Hypothyroidism , Kidney Stones, Pancreatitis (chronic), Peripheral Edema, End Stage Renal Disease, Chronic Kidney Disease, Seizures, Chronic Pain Surgical History: Cholecystectomy, Coronary Stent - [facility] Procedures ASSISTANCE WITH RESPIRATORY VENTILATION, 24-96 HRS, CPAP (05/25/16) CAUTERY TO STOP EPISTAX (03/22/14) CENTRAL VENOUS CATHETER PLACEMENT WITH GUIDANCE (11/06/14) DIALYSIS ARTERIOVENOSTOM (01/10/14) DRAINAGE OF RIGHT FOOT SKIN, EXTERNAL APPROACH (07/17/16) DRAINAGE OF RIGHT LOWER ARM SKIN, EXTERNAL APPROACH (05/25/16) ESOPHAGOGASTRODUODENOSCOPY [EGD] W/CLOSED BIOPSY (03/03/14) EXCISION OF STOMACH, ENDO, DIAGN (05/09/16) EXTIRPATE MATTER FROM R LOW ARM SUBCU/FASCIA, PERC (05/25/16) EXTRACTION OF RIGHT FOOT SKIN, EXTERNAL APPROACH (05/25/16) FLEXIBLE SIGMOIDOSCOPY (10/26/14) FLUOROSCOPY OF R JUGULAR VEIN USING L OSM CONTRAST, GUIDANCE (12/13/15) FLUOROSCOPY OF RIGHT SUBCLAVIAN VEIN, GUIDANCE (08/07/16) HEMODIALYSIS (04/05/15) INJECT INSULIN (12/23/12) INJECT/INFUSE ELECTROLYT (12/23/12) INJECT/INFUSE NEC (01/17/15) INSERT INFUSION DEV IN R INT JUGULAR VEIN, PERC (02/23/16) INSERTION OF INFUSION DEV INTO R BASILIC VEIN, PERC APPROACH (04/18/16) INSERTION OF INFUSION DEV INTO R SUBCLAV VEIN, PERC APPROACH (08/29/16) INSERTION OF INFUSION DEV INTO SUP VENA CAVA, PERC APPROACH (05/25/16) INSERTION OF INFUSION DEVICE INTO R ATRIUM, PERC APPROACH (12/13/15) INSERTION OF VAD INTO CHEST SUBCU/FASCIA, OPEN APPROACH (12/13/15) MEASURE OF CARDIAC SAMPL & PRESSURE, L HEART, PERC APPROACH (10/09/16) OTHER ENDOSCOPY OF SM INTEST (08/25/14) PACKED CELL TRANSFUSION (10/26/14) PERFORMANCE OF URINARY FILTRATION, MULTIPLE (10/30/16) PERFORMANCE OF URINARY FILTRATION, SINGLE (11/15/16) PLAIN RADIOGRAPHY OF LEFT HEART USING OTHER CONTRAST (10/09/16) PLAIN RADIOGRAPHY OF MULT COR ART USING OTH CONTRAST (10/09/16) PLICATION OF VENA CAVA (03/22/14) POST NASAL PAC FOR EPIST (03/22/14) REMOVAL OF VAD FROM TRUNK SUBCU/FASCIA, OPEN APPROACH (02/23/16) MELVIN KENNY DIALYSIS SHUNT (03/03/14) THERAPEUTIC ERYTHROCYTAPHERESIS (10/26/14) TRANSFUSE NONAUT RED BLOOD CELLS IN PERIPH VEIN, PERC (11/15/16) ULTRASONOGRAPHY OF RIGHT SUBCLAVIAN VEIN, GUIDANCE (08/29/16) VACCINATION NEC (10/26/14) VENOUS CATHETERIZATION FOR RENAL DIALYSIS (03/03/14) Family History: States: Unknown Family Hx - Social History Hx Tobacco Use: No Hx Alcohol Use: No Hx Substance Use: No - Immunization History Hx Tetanus Toxoid Vaccination: No Hx Influenza Vaccination: Yes Hx Pneumococcal Vaccination: Yes Review Of Systems Except As Marked, All Systems Reviewed And Found Negative. Constitutional: Negative for: Fever, Chills Cardiovascular: Negative for: Chest Pain Respiratory: Negative for: Cough, Shortness of Breath Gastrointestinal: Positive for: Vomiting, Abdominal Pain. Negative for: Diarrhea Genitourinary: Negative for: Dysuria, Hematuria Skin: Negative for: Rash Physical Exam - Physical Exam Appears: Non-toxic Skin: Normal Color, Warm, Dry Head: Atraumatic, Normacephalic Oral Mucosa: Moist Throat: Normal, No Erythema Neck: Supple Chest: Symmetrical Cardiovascular: Rhythm Regular, No Murmur Respiratory: No Rales, No Rhonchi, No Wheezing Gastrointestinal/Abdominal: Soft, Tenderness (mild, diffuse), No Distention, No Guarding, No Rebound Back: Normal Inspection, No CVA Tenderness Extremity: Normal ROM, Capillary Refill (< 2 sec. ) Neurological/Psych: Oriented x3, Normal Speech ED Course And Treatment - Laboratory Results Result Diagrams: 11/22/16 14:08 11/22/16 14:08 Lab Interpretation: No Acute Changes O2 Sat by Pulse Oximetry: 94 (RA) Pulse Ox Interpretation: Normal Progress Note: Patient treated with zofran, dilaudid and benadryl. Case discussed with Dr Wilkins who requests that we do not give patient any narcotics and she can follow up as outpatient for further evaluation. Patient requesting additional dose if dilaudid. Patient counseled that we are not able to provide additional doses of narcotics and must follow up with pain management. Patient discharged in stable condition no headache, cheat pain and instructed to follow up with Dr Wilkins for B/P re-evaluation Reassessment Condition: Improved - Physician Consult Information Physician Contacted: Cecil Wilkins Jr. Outcome Of Conversation: do not give patient narcotics Medical Decision Making Medical Decision Making: Plan: * Dilaudid 1mg * Zofran * Bloodwork * Reassess Progress: Disposition Discussed With Dr.: Cecil Wilkins Jr. Doctor Will See Patient In The: Office Counseled Patient/Family Regarding: Studies Performed, Diagnosis, Need For Followup - Disposition Referrals: Cecil Wilkins Jr., MD [Medical Doctor] - Disposition: HOME/ ROUTINE Disposition Time: 14:40 Condition: GOOD Additional Instructions: Follow up with PMD for further evaluation Instructions: Chronic Pain (ED) - POA Present On Arrival: None - Clinical Impression Clinical Impression: Chronic pain - PA / SPINNING LATHE OPERATOR / Resident Statement MD/DO has reviewed & agrees with the documentation as recorded. - Scribe Statement The provider has reviewed the documentation as recorded by the Arun Cummings Provider Kwadwoibe Attestation: All medical record entries made by the Scribe were at my direction and personally dictated by me. I have reviewed the chart and agree that the record accurately reflects my personal performance of the history, physical exam, medical decision making, and the department course for this patient. I have also personally directed, reviewed, and agree with the discharge instructions and disposition.
[2016-11-22 14:16] LABS: BASO # 0.1 K/uL (0.0-0.2); EOS # 0.5 K/uL (0.0-0.7); HEMATOCRIT 25.9 % (34.0-47.0); LYMPH # 0.9 K/uL (1.0-4.3); LYMPH % 10.3 % (20.0-40.0); MEAN CELL VOLUME 92.9 fL (81.0-99.0); MEAN CORPUSCULAR HGB CONC 32.3 g/dL (33.0-37.0); MEAN PLATELET VOLUME 8.2 fL (7.2-11.7); MONO # 0.6 K/uL (0.0-0.8); RED CELL DISTRIBUTION WIDTH 17.8 % (11.5-14.5); WHITE BLOOD COUNT 8.7 K/uL (4.8-10.8)
[2016-11-22 14:21] LABS: POTASSIUM 5.4 mmol/L (3.6-5.2)
[2016-11-22 14:23] LABS: ALB/GLOB RATIO 1.2 (1.0-2.1); BILIRUBIN,TOTAL 0.6 mg/dL (0.2-1.3); TOTAL PROTEIN 7.5 g/dL (6.3-8.3)
[2016-11-22 14:24] LABS: CALCIUM 7.4 mg/dl (8.6-10.4)
[2016-11-22] MEDS ORDERED: DiphenhydrAMINE 50 mg/ml Inj IVP STA (14:24)
[2016-11-22] MEDS ORDERED: DiphenhydrAMINE 50 mg/ml Inj ONE (14:32)
[2016-11-22 15:20] VITALS: BP 200/100; PULSE 102; RESP 20; TEMP 98.1
== END 2016-11-22 15:20 | disposition home or self-care (01) ==
LOC: C.ER 12:34
DX: G89.29 Other chronic pain (principal)
CPT/HCPCS: 80053; 85025; 96374; 96375; 99284; J1170; J1200; J2405

== ENCOUNTER 2016-11-27 11:07 | Inpatient (IN) | payer MEDICAID ==
[2016-11-27 11:08] VITALS: BMI 27.4
--- NOTE | 2016-11-27 11:34 | C.PDOC ---
History Of Present Illness Patient is a 30 year old female who presents to the ER with a complaint of shortness of breath. Patient is scheduled for dialysis today, last dialysis was on Sunday. Patient states they did 4.5 liters but her usual is 5.0-5.5. Denies nausea, vomiting, or fever. Time Seen by Provider: 11/27/16 11:34 Chief Complaint (Nursing): Respiratory Distress History Per: Patient History/Exam Limitations: no limitations Onset/Duration Of Symptoms: Hrs Current Symptoms Are (Timing): Still Present Past Medical History Reviewed: Historical Data, Nursing Documentation, Vital Signs Vital Signs: Last Vital Signs Temp Pulse 116 H 11/27/16 11:15 Resp 28 H 11/27/16 11:15 BP 184/125 H 11/27/16 11:15 Pulse Ox 100 11/27/16 12:52 - Medical History PMH: Anemia, Anxiety, CHF (Florid), Diabetes, Fractures (Sep 2012 L foot), Gastritis, Gastrointestinal Ulcer (gastroparesis), Gall Bladder Disease ( gallbladder removed), Hepatitis, HTN, Hypercholesterolemia, Hyperthyroidism, Hypothyroidism, Kidney Stones, Pancreatitis (chronic), Peripheral Edema, End Stage Renal Disease, Chronic Kidney Disease, Seizures, Chronic Pain Surgical History: Cholecystectomy, Coronary Stent - [facility] Procedures ASSISTANCE WITH RESPIRATORY VENTILATION, 24-96 HRS, CPAP (05/25/16) CAUTERY TO STOP EPISTAX (03/22/14) CENTRAL VENOUS CATHETER PLACEMENT WITH GUIDANCE (11/06/14) DIALYSIS ARTERIOVENOSTOM (01/10/14) DRAINAGE OF RIGHT FOOT SKIN, EXTERNAL APPROACH (07/17/16) DRAINAGE OF RIGHT LOWER ARM SKIN, EXTERNAL APPROACH (05/25/16) ESOPHAGOGASTRODUODENOSCOPY [EGD] W/CLOSED BIOPSY (03/03/14) EXCISION OF STOMACH, ENDO, DIAGN (05/09/16) EXTIRPATE MATTER FROM R LOW ARM SUBCU/FASCIA, PERC (05/25/16) EXTRACTION OF RIGHT FOOT SKIN, EXTERNAL APPROACH (05/25/16) FLEXIBLE SIGMOIDOSCOPY (10/26/14) FLUOROSCOPY OF R JUGULAR VEIN USING L OSM CONTRAST, GUIDANCE (12/13/15) FLUOROSCOPY OF RIGHT SUBCLAVIAN VEIN, GUIDANCE (08/07/16) HEMODIALYSIS (04/05/15) INJECT INSULIN (12/23/12) INJECT/INFUSE ELECTROLYT (12/23/12) INJECT/INFUSE NEC (01/17/15) INSERT INFUSION DEV IN R INT JUGULAR VEIN, PERC (02/23/16) INSERTION OF INFUSION DEV INTO R BASILIC VEIN, PERC APPROACH (04/18/16) INSERTION OF INFUSION DEV INTO R SUBCLAV VEIN, PERC APPROACH (08/29/16) INSERTION OF INFUSION DEV INTO SUP VENA CAVA, PERC APPROACH (05/25/16) INSERTION OF INFUSION DEVICE INTO R ATRIUM, PERC APPROACH (12/13/15) INSERTION OF VAD INTO CHEST SUBCU/FASCIA, OPEN APPROACH (12/13/15) MEASURE OF CARDIAC SAMPL & PRESSURE, L HEART, PERC APPROACH (10/09/16) OTHER ENDOSCOPY OF SM INTEST (08/25/14) PACKED CELL TRANSFUSION (10/26/14) PERFORMANCE OF URINARY FILTRATION, MULTIPLE (10/30/16) PERFORMANCE OF URINARY FILTRATION, SINGLE (11/15/16) PLAIN RADIOGRAPHY OF LEFT HEART USING OTHER CONTRAST (10/09/16) PLAIN RADIOGRAPHY OF MULT COR ART USING OTH CONTRAST (10/09/16) PLICATION OF VENA CAVA (03/22/14) POST NASAL PAC FOR EPIST (03/22/14) REMOVAL OF VAD FROM TRUNK SUBCU/FASCIA, OPEN APPROACH (02/23/16) MELVIN KENNY DIALYSIS SHUNT (03/03/14) THERAPEUTIC ERYTHROCYTAPHERESIS (10/26/14) TRANSFUSE NONAUT RED BLOOD CELLS IN PERIPH VEIN, PERC (11/15/16) ULTRASONOGRAPHY OF RIGHT SUBCLAVIAN VEIN, GUIDANCE (08/29/16) VACCINATION NEC (10/26/14) VENOUS CATHETERIZATION FOR RENAL DIALYSIS (03/03/14) Family History: States: Unknown Family Hx - Social History Hx Tobacco Use: No Hx Alcohol Use: No Hx Substance Use: No - Immunization History Hx Tetanus Toxoid Vaccination: No Hx Influenza Vaccination: Yes Hx Pneumococcal Vaccination: Yes Review Of Systems Except As Marked, All Systems Reviewed And Found Negative. Respiratory: Positive for: Shortness of Breath Gastrointestinal: Negative for: Nausea, Vomiting, Diarrhea Physical Exam - Physical Exam Appears: Non-toxic Skin: Normal Color, Warm, Dry Head: Atraumatic, Normacephalic Oral Mucosa: Moist Chest: Symmetrical, No Tenderness Cardiovascular: Rhythm Regular, No Murmur Respiratory: Accessory Muscle Use, Rales (mid bilateral) Gastrointestinal/Abdominal: Soft, No Tenderness Back: No CVA Tenderness Neurological/Psych: Oriented x3, Normal Speech, Normal Cognition ED Course And Treatment ECG: Interpreted By Me ECG Rhythm: Sinus Tachycardia ECG Interpretation: Abnormal Rate From EC O2 Sat by Pulse Oximetry: 100 Pulse Ox Interpretation: Normal Progress Note: EKG and blood work ordered. Bipap and vapotherm administered. Progress - Re-Evaluation Re-evaluation Note: 11/27/16 12:11 D/W DR BRIZUELA WILL ARRANGE FOR [facility] HD PS DR BARRAGAN NO LONGER HER PMD. 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 D/W DR Edilia CARVALHO, WILL EVAL IN ER 11/27/16 12:50 PT REQUESTING BIPAP. REQUESTING IV DILAUDID ONLY DESPITE NOT REPORTING PAIN INITIALLY. OFFERED PO DILAUDID, PT REFUSING. DR Edilia CARVALHO TO ADMIT - Data Reviewed Data Reviewed: Lab, Diagnostic imaging, EKG, Old records - Critical Care Citical Care: Excluding Proc Time Critical Care Time: 90 minutes Disposition Counseled Patient/Family Regarding: Studies Performed, Diagnosis - Disposition Disposition: HOSPITALIZED Disposition Time: 12:13 Condition: STABLE - POA Present On Arrival: None - Clinical Impression Clinical Impression: Dyspnea, Respiratory distress, End stage renal disease on dialysis - Scribe Statement The provider has reviewed the documentation as recorded by the Scribjoan Gutiérrez All medical record entries made by the Scribe were at my direction and personally dictated by me. I have reviewed the chart and agree that the record accurately reflects my personal performance of the history, physical exam, medical decision making, and the department course for this patient. I have also personally directed, reviewed, and agree with the discharge instructions and disposition. Decision To Admit - Pt Status Changed To: Hospital Disposition Of: Observation - . Bed Request Type: Regular Patient Diagnosis: Dyspnea, Respiratory distress, End stage renal disease on dialysis
[2016-11-27] MEDS ORDERED: DiphenhydrAMINE 50 mg/ml Inj ONE (12:36)
--- NOTE | 2016-11-27 12:57 | RAD ---
PROCEDURE: CHEST RADIOGRAPH, 1 VIEW HISTORY: SOB COMPARISON: 11/16/2016 FINDINGS: LUNGS: Worsening now severe diffuse confluent bilateral airspace opacities suggestive for severe edema and or infiltrate. Associated bilateral pleural effusions. PLEURA: As above. CARDIOVASCULAR: Cardiomegaly. OSSEOUS STRUCTURES: No significant abnormalities. VISUALIZED UPPER ABDOMEN: Normal. OTHER FINDINGS: Retained catheter fragment again noted projecting over the right scapula. IMPRESSION: Worsening now severe diffuse confluent bilateral airspace opacities suggestive for severe edema and or infiltrate. Associated bilateral pleural effusions.
[2016-11-27] MEDS ORDERED: DiphenhydrAMINE 50 mg/ml Inj IVP STA ×2 (14:27→15:34)
[2016-11-27 15:14] LABS: BASO # 0.1 K/uL (0.0-0.2); BASO % 0.8 % (0.0-2.0); EOS # 0.6 K/uL (0.0-0.7); EOS % 5.5 % (0.0-4.0); HEMATOCRIT 25.4 % (34.0-47.0); LYMPH # 0.7 K/uL (1.0-4.3); MEAN CELL VOLUME 93.5 fL (81.0-99.0); MEAN CORPUSCULAR HEMOGLOBIN 31.3 pg (27.0-31.0); MEAN CORPUSCULAR HGB CONC 33.5 g/dL (33.0-37.0); MEAN PLATELET VOLUME 6.8 fL (7.2-11.7); MONO # 0.4 K/uL (0.0-0.8); MONO % 3.8 % (0.0-10.0); RED CELL DISTRIBUTION WIDTH 18.3 % (11.5-14.5); WHITE BLOOD COUNT 11.8 K/uL (4.8-10.8)
[2016-11-27 15:16] LABS: PLATELET COUNT 397 K/uL (130-400)
[2016-11-27 15:35] LABS: POTASSIUM 5.5 mmol/L (3.6-5.2)
[2016-11-27 15:37] LABS: BILIRUBIN,TOTAL 0.5 mg/dL (0.2-1.3)
[2016-11-27 15:38] LABS: ALB/GLOB RATIO 1.2 (1.0-2.1); TOTAL PROTEIN 7.7 g/dL (6.3-8.3)
[2016-11-27 15:39] LABS: CALCIUM 6.4 mg/dl (8.6-10.4)
[2016-11-27 15:43] LABS: EOSINOPHIL 2 % (0-4); NEUTROPHIL 91 % (50-75); NUCLEATED RED BLOOD CELL 1 % (0-0); TOTAL CELLS COUNTED 100
[2016-11-27] MEDS ORDERED: HYDROmorphone 1 mg/ml ISec IVP STA (15:47)
[2016-11-27] MEDS ORDERED: Sod Polystyrene Sulf 15 gm/60 ml Oral Susp PO ONE (18:00)
[2016-11-27] MEDS ORDERED: Pneumococcal 23-Valent Vaccine IM ONE (19:59)
[2016-11-27] MEDS ORDERED: Influenza Virus Vaccine 45 mcg/0.5 ml Syr IM ONE (19:59)
--- NOTE | 2016-11-27 20:02 | CP.PCM.HP ---
History of Present Illness - History of Present Illness History of Present Illness: Patient is 30-year-old female who presented to the ER with complaint of SOB. Patient is scheduled for dialysis today, her last dialysis was on Sunday. Patient states needs removal of 3l. Patient denies nausea vomiting or fever Patient is diagnosed case of diabetic gastropathy patient always wants certain medications patient usually gains a lot of weight Present on Admission - Present on Admission Any Indicators Present on Admission: No Past Patient History - Infectious Disease Hx of Infectious Diseases: None - Tetanus Immunizations Tetanus Immunization: Unknown - Past Medical History & Family History Past Medical History?: Yes - Past Social History Smoking Status: Never Smoked - CARDIAC Hx Cardiac Disorders: Yes Hx Congestive Heart Failure: Yes (Florid) Hx Hypercholesterolemia: Yes Hx Hypertension: Yes Hx Peripheral Edema: Yes - PULMONARY Hx Respiratory Disorders: No - NEUROLOGICAL Hx Neurological Disorder: Yes Hx Seizures: Yes - HEENT Hx HEENT Problems: Yes Hx Cataracts: Yes Hx Glaucoma: Yes - RENAL Hx Chronic Kidney Disease: Yes Hx Dialysis: Yes (M-W-F) Type of Dialysis Access: Left AV fistula Hx Kidney Stones: Yes - ENDOCRINE/METABOLIC Hx Endocrine Disorders: Yes Hx Diabetes Mellitus Type 2: Yes Hx Hyperthyroidism: Yes Hx Hypothyroidism: Yes - HEMATOLOGICAL/ONCOLOGICAL Hx Blood Disorders: Yes Hx Anemia: Yes - INTEGUMENTARY Hx Dermatological Problems: Yes Other/Comment: DRY ITCHY SKIN ;multiple/generalized dark spots on skin - MUSCULOSKELETAL/RHEUMATOLOGICAL Hx Musculoskeletal Disorders: Yes Hx Falls: No Hx Fractures: Yes (Sep 2012 L foot) - GASTROINTESTINAL Hx Gastrointestinal Disorders: Yes Hx Gall Bladder Disease: Yes (gallbladder removed) Hx Gastritis: Yes Hx Pancreatitis: Yes (chronic) - GENITOURINARY/GYNECOLOGICAL Hx Genitourinary Disorders: No - PSYCHIATRIC Hx Psychophysiologic Disorder: Yes Hx Anxiety: Yes Hx Substance Use: No - SURGICAL HISTORY Hx Surgeries: Yes Hx Cholecystectomy: Yes Other/Comment: AV fistula creation - ANESTHESIA Hx Anesthesia: Yes Hx Anesthesia Reactions: No Hx Malignant Hyperthermia: No Meds Allergies/Adverse Reactions: Allergies Allergy/AdvReac Type Severity Reaction Status Date / Time ketorolac tromethamine Allergy RASH Verified 03/13/17 12:53 [From Toradol] latex Allergy RASH Verified 03/13/17 12:53 morphine Allergy RASH Verified 03/13/17 12:53 tramadol Allergy RASH Verified 03/13/17 12:53 Results - Vital Signs Recent Vital Signs: Last Vital Signs Temp 99.1 F 11/27/16 19:34 Pulse 121 H 11/27/16 19:34 Resp 30 H 11/27/16 19:34 BP 224/103 H 11/27/16 19:34 Pulse Ox 100 11/27/16 19:34 - Labs Result Diagrams: 11/27/16 15:10 11/27/16 15:10 Labs: Laboratory Results - last 24 hr 11/27/16 11/27/16 15:10 16:02 WBC 11.8 H RBC 2.71 L Hgb 8.5 L Hct 25.4 L MCV 93.5 MCH 31.3 H MCHC 33.5 RDW 18.3 H Plt Count 397 D MPV 6.8 L Neut % (Auto) 83.9 H Lymph % (Auto) 6.0 L [place] % (Auto) 3.8 Eos % (Auto) 5.5 H Baso % (Auto) 0.8 Neut # 9.9 H Lymph # 0.7 L [place] # 0.4 Eos # 0.6 Baso # 0.1 Neutrophils % (Manual) 91 H Lymphocytes % (Manual) 4 L Monocytes % (Manual) 3 Eosinophils % (Manual) 2 Nucleated RBC % 1 H Platelet Estimate Normal Polychromasia Slight Hypochromasia (manual) Slight Anisocytosis (manual) Slight Microcytosis (manual) Slight [place] Cells Slight Sodium 138 Potassium 5.5 H Chloride 97 L Carbon Dioxide 18 L Anion Gap 29 H BUN 96 H Creatinine 10.0 H* D Est GFR ( Amer) 6 Est GFR (Non-Af Amer) 5 POC Glucose (mg/dL) 129 H Random Glucose 144 H Calcium 6.4 L Total Bilirubin 0.5 AST 29 ALT 21 Alkaline Phosphatase 116 NT-Pro-B Natriuret Pep 05851 H Total Protein 7.7 Albumin 4.2 Globulin 3.5 Albumin/Globulin Ratio 1.2 Assessment & Plan (1) Intractable vomiting Status: Acute (2) Sternal osteomyelitis Status: Acute (3) Hypertension associated with diabetes Status: Chronic (4) Accelerated essential hypertension Status: Acute (5) Acute hyperkalemia Status: Acute (6) Acute renal failure Status: Acute (7) Adjustment disorder with anxiety Status: Acute Priority: Low (8) Bacteremia Status: Acute (9) Catheter-related bloodstream infection (CRBSI) Status: Acute Priority: High (10) Cellulitis Status: Acute (11) Chest pain Status: Acute (12) Chronic congestive heart failure Status: Acute (13) Chronic intractable pain Status: Acute (14) Chronic pain Status: Acute (15) Congestive heart failure Status: Acute (16) Constipation Status: Acute (17) DM w/o complication type I Status: Acute (18) DVT (deep venous thrombosis) Status: Acute (19) Dehydration fever Status: Acute (20) Dyspnea Status: Acute (21) Epistaxis Status: Acute (22) Esophagitis Status: Acute (23) Fever Status: Acute (24) Fluid overload Status: Acute (25) Foot ulcer Status: Acute (26) Gastric pain Status: Acute (27) 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 Status: Acute (28) Herpes Status: Acute (29) Hyperglycemia Status: Acute (30) Hyperglycemia without ketosis Status: Acute (31) Hyperkalemia Status: Acute (32) Hypertension, malignant Status: Acute (33) Infection due to central venous catheter exit site Status: Acute (34) Infection, dialysis vascular access Status: Acute (35) Intractable vomiting Status: Acute (36) Leg swelling Status: Acute (37) Leukocytosis Status: Acute (38) Medical assessment Status: Acute (39) Narcotic addiction Status: Acute (40) Nausea Status: Acute (41) Other complication of arteriovenous dialysis fistula Status: Acute (42) Positive blood culture Status: Acute (43) Prophylactic measure Status: Acute (44) Pulmonary edema Status: Acute (45) Pulmonary edema Status: Acute (46) Renal azotemia Status: Acute (47) Renal failure Status: Acute (48) Renal function tests abnormal Status: Acute (49) Respiratory distress Status: Acute (50) Sensorineural deafness, unilateral Status: Acute (51) Sepsis Status: Acute (52) Shortness of breath Status: Acute (53) Tearfulness Status: Acute (54) Threatening to others Status: Acute (55) UTI (lower urinary tract infection) Status: Acute (56) UTI (urinary tract infection) Status: Acute (57) Uncontrolled diabetes mellitus Status: Acute (58) Urinary tract infection symptoms Status: Acute (59) Vaginal discharge Status: Acute (60) Vomiting Status: Acute (61) Vomiting bile Status: Acute (62) Abdominal discomfort, generalized Status: Chronic (63) Abdominal pain Status: Chronic (64) Abdominal pain Status: Chronic (65) Abdominal pain in female Status: Chronic (66) Anemia Status: Chronic (67) Anxiety Status: Chronic (68) CHF (congestive heart failure) Status: Chronic (69) Chronic abdominal pain Status: Chronic (70) Chronic pruritus Status: Chronic (71) Chronic, continuous use of opioids Status: Chronic (72) Constipation Status: Chronic (73) Dependence on renal dialysis Status: Chronic (74) Dependency on pain medication Status: Chronic (75) Diabetes Status: Chronic (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, managed as type 2 Status: Chronic (77) Drug-seeking behavior Status: Chronic (78) End stage renal disease Status: Chronic (79) End stage renal disease on dialysis Status: Chronic (80) Gastroparesis Status: Chronic (81) Hemodialysis patient Status: Chronic (82) Hypertension Status: Chronic (83) Intractable abdominal pain Status: Chronic (84) Intractable nausea and vomiting Status: Chronic (85) Pain Status: Chronic (86) Skin lesions, generalized Status: Chronic (87) Type 1 diabetes Status: Chronic - Assessment and Plan (Free Text) Plan: Consult nephrology Continue HD Clonidine Benadryl Colace Dilaudid Tranadate Procardia Prednisone
[2016-11-27] MEDS ORDERED: HYDROmorphone 1 mg/ml ISec IM SCH (21:00)
[2016-11-27] MEDS: Insulin Detemir 100 units/ml Vial (Levemir) SC SCH (21:43)
[2016-11-28] MEDS ORDERED: HYDROmorphone 1 mg/ml ISec IVP STA (00:45)
[2016-11-28] MEDS: HYDROmorphone 1 mg/ml ISec IVP SCH ×3 (05:06→20:48)
[2016-11-28] MEDS: (Novolog) Insulin Aspart, Recombinant 100 u/ml 10 ml vial SC SCH ×3 (08:30→17:25)
[2016-11-28] MEDS ORDERED: CALCIUM ACETATE 667 MG PO SCH (10:00)
[2016-11-28] MEDS: Insulin Detemir 100 units/ml Vial (Levemir) SC SCH ×2 (10:45→22:08)
[2016-11-28] MEDS: NIFEdipine 60 mg ER Tab PO SCH ×2 (10:46→18:18)
--- NOTE | 2016-11-28 11:01 | CP.PCM.PN ---
Subjective - Date & Time of Evaluation Date of Evaluation: 11/28/16 Time of Evaluation: 12:20 - Subjective Subjective: clinically same Objective - Vital Signs/Intake and Output Vital Signs (last 24 hours): Temp Pulse Resp BP Pulse Ox 98.3 F 90 18 158/90 H 95 11/28/16 07:20 11/28/16 07:20 11/28/16 07:20 11/28/16 07:20 11/28/16 07:20 - Medications Medications: Current Medications Clonidine HCl (Catapres-Tts3 0.3 Mg/24 Hr) 1 patch TD Q7D@1000 [facility] Last Admin: 11/27/16 19:46 Dose: 1 patch Diphenhydramine HCl (Benadryl) 25 mg PO HS PRN PRN Reason: itchiness Last Admin: 11/28/16 01:42 Dose: 25 mg Docusate Sodium (Colace) 100 mg PO BID [facility] Last Admin: 11/28/16 10:51 Dose: Not Given Escitalopram Oxalate (Lexapro) 5 mg PO DAILY [facility] Last Admin: 11/28/16 10:47 Dose: 5 mg Hydromorphone HCl (Dilaudid) 1 mg IVP Q8H [facility] Last Admin: 11/28/16 05:06 Dose: 1 mg Insulin Aspart (Novolog) 6 unit SC AC [facility] Last Admin: 11/28/16 08:30 Dose: 6 unit Insulin Detemir (Levemir) 12 unit SC Q12 [facility] Last Admin: 11/28/16 10:45 Dose: 12 unit Labetalol HCl (Trandate) 200 mg PO BID [facility] Last Admin: 11/28/16 10:47 Dose: 200 mg Nifedipine (Procardia Xl) 60 mg PO BID [facility] Last Admin: 11/28/16 10:46 Dose: 60 mg Prednisone (Prednisone Tab) 10 mg PO DAILY [facility] Sevelamer Carbonate (Renvela) 2,400 mg PO TID [facility] Last Admin: 11/28/16 10:46 Dose: 2,400 mg - Labs Labs: 11/27/16 15:10 11/27/16 15:10 - Constitutional Appears: Well - Head Exam Head Exam: ATRAUMATIC, NORMAL INSPECTION, NORMOCEPHALIC - Eye Exam Eye Exam: EOMI, Normal appearance, PERRL Pupil Exam: NORMAL ACCOMODATION, PERRL - ENT Exam ENT Exam: Mucous Membranes Moist, Normal Exam - Neck Exam Neck Exam: Full ROM, Normal Inspection. absent: Lymphadenopathy - Respiratory Exam Respiratory Exam: Decreased Breath Sounds - Cardiovascular Exam Cardiovascular Exam: REGULAR RHYTHM, +S1, +S2 - GI/Abdominal Exam GI & Abdominal Exam: Soft, Diminished Bowel Sounds - Rectal Exam Rectal Exam: Deferred Assessment and Plan - Assessment and Plan (Free Text) Plan: consult Dr. Phillips for dialysis lyle. HD lyle. other meds as ordered f/u labs
[2016-11-28] MEDS ORDERED: DiphenhydrAMINE 50 mg/ml Inj IVP ONE (12:15)
--- NOTE | 2016-11-28 16:52 | CP.PCM.CON ---
History of Present Illness - History of Present Illness History of Present Illness: RESON FOR CONSULT : ESRD ON HD M W F AND SAT IN NEED FOR URGENT HD SHE IS FLUID OVER LOADED PT CAME YESTERDAY AND SHE RECIEVED STAT HD WELL KNOWN TO ME FOR YEARS .. MIREYA AND TERESSA ROLONISSTERRA Past Patient History - Infectious Disease Hx of Infectious Diseases: None - Tetanus Immunizations Tetanus Immunization: Unknown - Past Medical History & Family History Past Medical History?: Yes - Past Social History Smoking Status: Never Smoked - CARDIAC Hx Cardiac Disorders: Yes Hx Congestive Heart Failure: Yes (Florid) Hx Hypercholesterolemia: Yes Hx Hypertension: Yes Hx Peripheral Edema: Yes - PULMONARY Hx Respiratory Disorders: No - NEUROLOGICAL Hx Neurological Disorder: Yes Hx Seizures: Yes - HEENT Hx HEENT Problems: Yes Hx Cataracts: Yes Hx Glaucoma: Yes - RENAL Hx Chronic Kidney Disease: Yes Hx Dialysis: Yes (M-W-) Type of Dialysis Access: Left AV fistula Hx Kidney Stones: Yes - ENDOCRINE/METABOLIC Hx Endocrine Disorders: Yes Hx Diabetes Mellitus Type 2: Yes Hx Hyperthyroidism: Yes Hx Hypothyroidism: Yes - HEMATOLOGICAL/ONCOLOGICAL Hx Blood Disorders: Yes Hx Anemia: Yes - INTEGUMENTARY Hx Dermatological Problems: Yes Other/Comment: DRY ITCHY SKIN ;multiple/generalized dark spots on skin - MUSCULOSKELETAL/RHEUMATOLOGICAL Hx Musculoskeletal Disorders: Yes Hx Falls: No Hx Fractures: Yes (Sep 2012 L foot) - GASTROINTESTINAL Hx Gastrointestinal Disorders: Yes Hx Gall Bladder Disease: Yes (gallbladder removed) Hx Gastritis: Yes Hx Pancreatitis: Yes (chronic) - GENITOURINARY/GYNECOLOGICAL Hx Genitourinary Disorders: No - PSYCHIATRIC Hx Psychophysiologic Disorder: Yes Hx Anxiety: Yes Hx Substance Use: No - SURGICAL HISTORY Hx Surgeries: Yes Hx Cholecystectomy: Yes Other/Comment: AV fistula creation - ANESTHESIA Hx Anesthesia: Yes Hx Anesthesia Reactions: No Hx Malignant Hyperthermia: No Meds Allergies/Adverse Reactions: Allergies Allergy/AdvReac Type Severity Reaction Status Date / Time ketorolac tromethamine Allergy RASH Verified 10/30/16 15:32 [From Toradol] latex Allergy RASH Verified 10/30/16 15:32 morphine Allergy RASH Verified 10/30/16 15:32 tramadol Allergy RASH Verified 10/30/16 15:32 - Medications Medications: Current Medications Clonidine HCl (Catapres-Tts3 0.3 Mg/24 Hr) 1 patch TD Q7D@1000 [facility] Last Admin: 11/27/16 19:46 Dose: 1 patch Diphenhydramine HCl (Benadryl) 25 mg PO HS PRN PRN Reason: itchiness Last Admin: 11/28/16 01:42 Dose: 25 mg Docusate Sodium (Colace) 100 mg PO BID [facility] Last Admin: 11/28/16 10:51 Dose: Not Given Escitalopram Oxalate (Lexapro) 5 mg PO DAILY [facility] Last Admin: 11/28/16 10:47 Dose: 5 mg Hydromorphone HCl (Dilaudid) 1 mg IVP Q8H [facility] Last Admin: 11/28/16 12:46 Dose: 1 mg Insulin Aspart (Novolog) 6 unit SC AC [facility] Last Admin: 11/28/16 13:35 Dose: Not Given Insulin Detemir (Levemir) 12 unit SC Q12 [facility] Last Admin: 11/28/16 10:45 Dose: 12 unit Labetalol HCl (Trandate) 200 mg PO BID [facility] Last Admin: 11/28/16 10:47 Dose: 200 mg Nifedipine (Procardia Xl) 60 mg PO BID [facility] Last Admin: 11/28/16 10:46 Dose: 60 mg Prednisone (Prednisone Tab) 10 mg PO DAILY [facility] Last Admin: 11/28/16 10:47 Dose: 10 mg Sevelamer Carbonate (Renvela) 2,400 mg PO TID [facility] Last Admin: 11/28/16 10:46 Dose: 2,400 mg Results - Vital Signs Recent Vital Signs: Last Vital Signs Temp 97.8 F 11/28/16 15:07 Pulse 86 11/28/16 15:30 Resp 20 11/28/16 15:07 BP 136/80 11/28/16 15:07 Pulse Ox 100 11/28/16 15:07 - Labs Result Diagrams: 11/27/16 15:10 11/27/16 15:10 Labs: Laboratory Results - last 24 hr 11/28/16 11/28/16 11/28/16 06:39 12:03 12:27 POC Glucose (mg/dL) 136 H 40 L 89 Assessment & Plan - Assessment and Plan (Free Text) Assessment: ESRD ON HD M W F AND SAT .. TO BE C/O ANEMIA OF CKD .. ON EPO MULTIPLE CO MORBIDITIES P : STAT HD .. DONE RENAL AND DIABETIC DIET C/O CURRENT MEDS - Date & Time Date: 11/28/16 Time: 15:00
[2016-11-29] MEDS: HYDROmorphone 1 mg/ml ISec IVP SCH ×3 (04:55→20:52)
[2016-11-29] MEDS: (Novolog) Insulin Aspart, Recombinant 100 u/ml 10 ml vial SC SCH ×4 (08:31→22:04)
[2016-11-29] MEDS ORDERED: DiphenhydrAMINE 50 mg/ml Inj IVP STA ×2 (08:50→13:43)
[2016-11-29] MEDS: NIFEdipine 60 mg ER Tab PO SCH ×2 (09:47→18:33)
[2016-11-29] MEDS: Insulin Detemir 100 units/ml Vial (Levemir) SC SCH ×2 (09:49→22:05)
[2016-11-29] MEDS ORDERED: DiphenhydrAMINE 12.5 mg/5 ml LIQ UD (5 ml) NG STA (13:09)
[2016-11-29] MEDS ORDERED: DiphenhydrAMINE 50 mg/ml Inj IVP ONE (15:15)
[2016-11-29 17:45] VITALS: O2SAT 100
--- NOTE | 2016-11-29 18:54 | CP.PCM.PN ---
Subjective - Date & Time of Evaluation Date of Evaluation: 11/29/16 Time of Evaluation: 12:40 - Subjective Subjective: feels better Objective - Vital Signs/Intake and Output Vital Signs (last 24 hours): Temp Pulse Resp BP Pulse Ox 97.2 F L 81 16 116/68 100 11/29/16 16:20 11/29/16 16:20 11/29/16 16:20 11/29/16 17:00 11/29/16 16:20 - Medications Medications: Current Medications Clonidine HCl (Catapres-Tts3 0.3 Mg/24 Hr) 1 patch TD Q7D@1000 [facility] Last Admin: 11/27/16 19:46 Dose: 1 patch Diphenhydramine HCl (Benadryl) 25 mg PO HS PRN PRN Reason: itchiness Last Admin: 11/28/16 20:47 Dose: 25 mg Docusate Sodium (Colace) 100 mg PO BID [facility] Last Admin: 11/29/16 18:33 Dose: 100 mg Escitalopram Oxalate (Lexapro) 5 mg PO DAILY [facility] Last Admin: 11/29/16 09:48 Dose: 5 mg Hydromorphone HCl (Dilaudid) 1 mg IVP Q8H [facility] Last Admin: 11/29/16 12:24 Dose: 1 mg Insulin Aspart (Novolog) 0 unit SC ACHS [facility] PRN Reason: Protocol Last Admin: 11/29/16 17:00 Dose: Not Given Insulin Detemir (Levemir) 12 unit SC Q12 [facility] Last Admin: 11/29/16 09:49 Dose: 12 unit Labetalol HCl (Trandate) 200 mg PO BID [facility] Last Admin: 11/29/16 18:33 Dose: 200 mg Nifedipine (Procardia Xl) 60 mg PO BID [facility] Last Admin: 11/29/16 18:33 Dose: 60 mg Prednisone (Prednisone Tab) 10 mg PO DAILY [facility] Last Admin: 11/29/16 09:47 Dose: 10 mg Sevelamer Carbonate (Renvela) 2,400 mg PO TID [facility] Last Admin: 11/29/16 18:36 Dose: Not Given - Labs Labs: 11/27/16 15:10 11/27/16 15:10 - Constitutional Appears: Well - Head Exam Head Exam: ATRAUMATIC, NORMAL INSPECTION, NORMOCEPHALIC - Eye Exam Eye Exam: EOMI, Normal appearance, PERRL Pupil Exam: NORMAL ACCOMODATION, PERRL - ENT Exam ENT Exam: Mucous Membranes Moist, Normal Exam - Neck Exam Neck Exam: Full ROM, Normal Inspection. absent: Lymphadenopathy - Respiratory Exam Respiratory Exam: Decreased Breath Sounds - Cardiovascular Exam Cardiovascular Exam: REGULAR RHYTHM, +S1, +S2 - GI/Abdominal Exam GI & Abdominal Exam: Soft, Diminished Bowel Sounds - Rectal Exam Rectal Exam: Deferred Assessment and Plan (1) Accelerated essential hypertension Status: Acute (2) Abdominal pain Status: Chronic (3) Drug-seeking behavior Status: Chronic (4) Hemodialysis patient Status: Chronic (5) Acute hyperkalemia Status: Acute (6) Acute renal failure Status: Acute (7) Adjustment disorder with anxiety Status: Acute (8) Bacteremia Status: Acute (9) Catheter-related bloodstream infection (CRBSI) Status: Acute (10) Cellulitis Status: Acute (11) Chest pain Status: Acute (12) Chronic congestive heart failure Status: Acute (13) Chronic intractable pain Status: Acute (14) Chronic pain Status: Acute (15) Congestive heart failure Status: Acute (16) Constipation Status: Acute (17) DM w/o complication type I Status: Acute (18) DVT (deep venous thrombosis) Status: Acute (19) Dehydration fever Status: Acute (20) Dyspnea Status: Acute (21) Epistaxis Status: Acute (22) Esophagitis Status: Acute (23) Fever Status: Acute (24) Fluid overload Status: Acute (25) Foot ulcer Status: Acute (26) Gastric pain Status: Acute (27) 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 Status: Acute (28) Herpes Status: Acute (29) Hyperglycemia Status: Acute (30) Hyperglycemia without ketosis Status: Acute (31) Hyperkalemia Status: Acute (32) Hypertension, malignant Status: Acute (33) Infection due to central venous catheter exit site Status: Acute (34) Infection, dialysis vascular access Status: Acute (35) Intractable vomiting Status: Acute (36) Intractable vomiting Status: Acute (37) Leg swelling Status: Acute (38) Leukocytosis Status: Acute (39) Medical assessment Status: Acute (40) Narcotic addiction Status: Acute (41) Nausea Status: Acute (42) Other complication of arteriovenous dialysis fistula Status: Acute (43) Positive blood culture Status: Acute (44) Prophylactic measure Status: Acute (45) Pulmonary edema Status: Acute (46) Pulmonary edema Status: Acute (47) Renal azotemia Status: Acute (48) Renal failure Status: Acute (49) Renal function tests abnormal Status: Acute (50) Respiratory distress Status: Acute (51) Sensorineural deafness, unilateral Status: Acute (52) Sepsis Status: Acute (53) Shortness of breath Status: Acute (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 (55) Tearfulness Status: Acute (56) Threatening to others Status: Acute (57) UTI (lower urinary tract infection) Status: Acute (58) UTI (urinary tract infection) Status: Acute (59) Uncontrolled diabetes mellitus Status: Acute (60) Urinary tract infection symptoms Status: Acute (61) Vaginal discharge Status: Acute (62) Vomiting Status: Acute (63) Vomiting bile Status: Acute (64) Abdominal discomfort, generalized Status: Chronic (65) Abdominal pain Status: Chronic (66) Abdominal pain in female Status: Chronic (67) Anemia Status: Chronic (68) Anxiety Status: Chronic (69) CHF (congestive heart failure) Status: Chronic (70) Chronic abdominal pain Status: Chronic (71) Chronic pruritus Status: Chronic (72) Chronic, continuous use of opioids Status: Chronic (73) Constipation Status: Chronic (74) Dependence on renal dialysis Status: Chronic (75) Dependency on pain medication Status: Chronic (76) Diabetes Status: Chronic (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 Jacqueline alvarenga. YOBANY lyle. other meds as ordered f/u labs
--- NOTE | 2016-11-29 23:55 | CP.PCM.PN ---
Subjective - Date & Time of Evaluation Date of Evaluation: 11/29/16 Time of Evaluation: 13:00 - Subjective Subjective: SEEN ON RENAL F/U SEEN ON HD FEELS BETTER Objective - Vital Signs/Intake and Output Vital Signs (last 24 hours): Temp Pulse Resp BP Pulse Ox 97.2 F L 81 16 116/68 100 11/29/16 16:20 11/29/16 16:20 11/29/16 16:20 11/29/16 17:00 11/29/16 16:20 - Medications Medications: Current Medications Clonidine HCl (Catapres-Tts3 0.3 Mg/24 Hr) 1 patch TD Q7D@1000 [facility] Last Admin: 11/27/16 19:46 Dose: 1 patch Diphenhydramine HCl (Benadryl) 25 mg PO HS PRN PRN Reason: itchiness Last Admin: 11/29/16 22:03 Dose: 25 mg Docusate Sodium (Colace) 100 mg PO BID [facility] Last Admin: 11/29/16 18:33 Dose: 100 mg Escitalopram Oxalate (Lexapro) 5 mg PO DAILY [facility] Last Admin: 11/29/16 09:48 Dose: 5 mg Hydromorphone HCl (Dilaudid) 1 mg IVP Q8H [facility] Last Admin: 11/29/16 20:52 Dose: 1 mg Insulin Aspart (Novolog) 0 unit SC ACHS [facility] PRN Reason: Protocol Last Admin: 11/29/16 22:04 Dose: 3 unit Insulin Detemir (Levemir) 12 unit SC Q12 [facility] Last Admin: 11/29/16 22:05 Dose: 12 unit Labetalol HCl (Trandate) 200 mg PO BID [facility] Last Admin: 11/29/16 18:33 Dose: 200 mg Nifedipine (Procardia Xl) 60 mg PO BID [facility] Last Admin: 11/29/16 18:33 Dose: 60 mg Prednisone (Prednisone Tab) 10 mg PO DAILY [facility] Last Admin: 11/29/16 09:47 Dose: 10 mg Sevelamer Carbonate (Renvela) 2,400 mg PO TID [facility] Last Admin: 11/29/16 18:36 Dose: Not Given - Labs Labs: 11/27/16 15:10 11/27/16 15:10 Assessment and Plan - Assessment and Plan (Free Text) Assessment: ESRD ON HD M W F AND SAT ANEMIA OF CKD .. ON EPO MULTIPLE CO MORBIDITIES C/O CURRENT CARE
[2016-11-30 02:32] VITALS: RESP 20
[2016-11-30] MEDS ORDERED: (Novolin R) Insulin Human Regular 100 units/ml vial SC ONE (04:30)
[2016-11-30] MEDS: HYDROmorphone 1 mg/ml ISec IVP SCH ×2 (04:39→12:38)
[2016-11-30] MEDS: (Novolog) Insulin Aspart, Recombinant 100 u/ml 10 ml vial SC SCH ×2 (08:10→12:21)
--- NOTE | 2016-11-30 08:33 | CARD ---
APPROVED REPORT EKG Measurement Heart [id number] <Conclusion> Sinus tachycardia Otherwise normal ECG
[2016-11-30 08:47] VITALS: BP 138/86; PULSE 78; TEMP 97.6
[2016-11-30] MEDS: Insulin Detemir 100 units/ml Vial (Levemir) SC SCH (10:04)
[2016-11-30] MEDS: NIFEdipine 60 mg ER Tab PO SCH (10:04)
--- NOTE | 2016-11-30 17:05 | CP.PCM.PN ---
Subjective - Date & Time of Evaluation Date of Evaluation: 11/30/16 Time of Evaluation: 11:00 - Subjective Subjective: Alert, awake, NAD. Objective - Vital Signs/Intake and Output Vital Signs (last 24 hours): Temp Pulse Resp BP Pulse Ox 97.6 F 78 20 138/86 100 11/30/16 07:10 11/30/16 08:00 11/30/16 07:10 11/30/16 07:10 11/30/16 07:10 Assessment and Plan - Assessment and Plan (Free Text) Assessment: Resident seen by DR Edilia Sexton, advised to discharge home today and follow up with PMD in 1 week. Patient is very upset and walked out with her family. No acute distress noted, advised to continue with HD in am as scheduled.
--- NOTE | 2016-11-30 17:10 | PCM.HF ---
Heart Failure Core Measure - Heart Failure Ejection Fraction: 40 % or Greater (EF 50-55%) BINU Inhibitor Prescribed: No Contraindication/Reason for not providing: ESRD/ EF>45 Beta-Allen Prescribed: None Contraindication/Reason for not providing: COPD Angiotensin II Receptor Allen Prescribed: No Contraindication/Reason for not providing: ESRD AnticoagulationTherapy for Atrial Fibrillation/Atrialflutter: No Contraindication/Reason for not providing: NO AFIB Aldosterone Antagonist Prescribed: No Contraindication/Reason for not providing: EF>45% Hydralazine Nitrate Prescribed: No Contraindication/Reason for not providing: EF >45% Implantable Cardioverter Defibrillator Therapy: No Contraindication/Reason for not providing: EF >45% Cardiac Resynchronization Therapy Prescribed: No Contraindication/Reason for not providing: not indicated - Follow up Will be discharged to: Home Follow Up Date (must be within 7 days from discharge): 11/27/16 Follow Up Time: 09:00
--- NOTE | 2016-11-30 19:49 | CP.PCM.PN ---
Subjective - Date & Time of Evaluation Date of Evaluation: 11/30/16 Time of Evaluation: 13:00 - Subjective Subjective: SEEN ON RENAL F/U .. SEEN ON HD GOING HOME AFTER HD FEELS IMPROVED Objective - Vital Signs/Intake and Output Vital Signs (last 24 hours): Temp Pulse Resp BP Pulse Ox 97.6 F 78 20 138/86 100 11/30/16 07:10 11/30/16 08:00 11/30/16 07:10 11/30/16 07:10 11/30/16 07:10 Assessment and Plan - Assessment and Plan (Free Text) Assessment: ESRD ON HD M W F AND SAT GETTING EXTRA HD TODAY BEING D/C POST HD WILL F/U AN OUT PT
--- NOTE | 2016-11-30 22:09 | CP.PCM.PN ---
Subjective - Date & Time of Evaluation Date of Evaluation: 11/30/16 Time of Evaluation: 10:10 - Subjective Subjective: feels better alert NAD Objective - Vital Signs/Intake and Output Vital Signs (last 24 hours): Temp Pulse Resp BP Pulse Ox 97.6 F 78 20 138/86 100 11/30/16 07:10 11/30/16 08:00 11/30/16 07:10 11/30/16 07:10 11/30/16 07:10 - Constitutional Appears: Well - Head Exam Head Exam: ATRAUMATIC, NORMAL INSPECTION, NORMOCEPHALIC - Eye Exam Eye Exam: EOMI, Normal appearance, PERRL - ENT Exam ENT Exam: Mucous Membranes Moist, Normal Exam - Neck Exam Neck Exam: Full ROM, Normal Inspection. absent: Lymphadenopathy - Respiratory Exam Respiratory Exam: Decreased Breath Sounds - Cardiovascular Exam Cardiovascular Exam: REGULAR RHYTHM, +S1, +S2 - GI/Abdominal Exam GI & Abdominal Exam: Soft, Diminished Bowel Sounds - Rectal Exam Rectal Exam: Deferred Assessment and Plan (1) Accelerated essential hypertension Status: Acute (2) Acute hyperkalemia Status: Acute (3) Acute renal failure Status: Acute (4) Adjustment disorder with anxiety Status: Acute (5) Bacteremia Status: Acute (6) Catheter-related bloodstream infection (CRBSI) Status: Acute (7) Cellulitis Status: Acute (8) Chest pain Status: Acute (9) Chronic congestive heart failure Status: Acute (10) Chronic intractable pain Status: Acute (11) Chronic pain Status: Acute (12) Congestive heart failure Status: Acute (13) Constipation Status: Acute (14) DM w/o complication type I Status: Acute (15) DVT (deep venous thrombosis) Status: Acute (16) Dehydration fever Status: Acute (17) Dyspnea Status: Acute (18) Epistaxis Status: Acute (19) Esophagitis Status: Acute (20) Fever Status: Acute (21) Fluid overload Status: Acute (22) Foot ulcer Status: Acute (23) Gastric pain Status: Acute (24) 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 Status: Acute (25) Herpes Status: Acute (26) Hyperglycemia Status: Acute (27) Hyperglycemia without ketosis Status: Acute (28) Hyperkalemia Status: Acute (29) Hypertension, malignant Status: Acute (30) Infection due to central venous catheter exit site Status: Acute (31) Infection, dialysis vascular access Status: Acute (32) Intractable vomiting Status: Acute (33) Leg swelling Status: Acute (34) Leukocytosis Status: Acute (35) Medical assessment Status: Acute (36) Narcotic addiction Status: Acute (37) Nausea Status: Acute (38) Other complication of arteriovenous dialysis fistula Status: Acute (39) Positive blood culture Status: Acute (40) Prophylactic measure Status: Acute (41) Pulmonary edema Status: Acute (42) Pulmonary edema Status: Acute (43) Renal azotemia Status: Acute (44) Renal failure Status: Acute (45) Renal function tests abnormal Status: Acute (46) Respiratory distress Status: Acute (47) Sensorineural deafness, unilateral Status: Acute (48) Sepsis Status: Acute (49) Shortness of breath Status: Acute (50) Tearfulness Status: Acute (51) Threatening to others Status: Acute (52) UTI (lower urinary tract infection) Status: Acute (53) UTI (urinary tract infection) Status: Acute (54) Uncontrolled diabetes mellitus Status: Acute (55) Urinary tract infection symptoms Status: Acute (56) Vaginal discharge Status: Acute (57) Vomiting Status: Acute (58) Vomiting bile Status: Acute (59) Abdominal discomfort, generalized Status: Chronic (60) Abdominal pain Status: Chronic (61) Abdominal pain Status: Chronic (62) Abdominal pain in female Status: Chronic (63) Anemia Status: Chronic (64) Anxiety Status: Chronic (65) CHF (congestive heart failure) Status: Chronic (66) Chronic abdominal pain Status: Chronic (67) Chronic pruritus Status: Chronic (68) Chronic, continuous use of opioids Status: Chronic (69) Constipation Status: Chronic (70) Dependence on renal dialysis Status: Chronic (71) Dependency on pain medication Status: Chronic (72) Diabetes Status: Chronic (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, managed as type 2 Status: Chronic (74) Drug-seeking behavior Status: Chronic (75) End stage renal disease Status: Chronic (76) End stage renal disease on dialysis Status: Chronic (77) Gastroparesis Status: Chronic (78) Hemodialysis patient Status: Chronic (79) Hypertension Status: Chronic (80) Hypertension associated with diabetes Status: Chronic (81) Intractable abdominal pain Status: Chronic (82) Intractable nausea and vomiting Status: Chronic (83) Pain Status: Chronic (84) Skin lesions, generalized Status: Chronic (85) Type 1 diabetes Status: Chronic - Assessment and Plan (Free Text) Plan: pt. is ready for discharge f/u as outpatient lyle. HD as schedued
== END 2016-11-30 13:30 | disposition home or self-care (01) | DRG 127 ==
LOC: C.ER 11:07 → C.9E 12:51 → C.3T 13:18 → C.9E 18:15 → OBSVTOIN 18:15 → C.6T 19:26
PROVIDERS: ADMIT Internal Medicine Nephrology; ATTEND Internal Medicine Nephrology
PROC: 5A1D00Z (ICD-10-PCS; principal; 2016-11-27)
PROC: 5A09457 Assistance with Respiratory Ventilation, 24-96 Consecutive Hours, Continuous Positive Airway Pressure (ICD-10-PCS; 2016-11-27)
DX: I13.2 Hypertensive heart and chronic kidney disease with heart failure and with stage 5 chronic kidney disease, or end stage renal disease (principal); N18.6 End stage renal disease; E11.22 Type 2 diabetes mellitus with diabetic chronic kidney disease; I50.9 Heart failure, unspecified; E05.90 Thyrotoxicosis, unspecified without thyrotoxic crisis or storm; Z99.2 Dependence on renal dialysis; Z79.4 Long term (current) use of insulin; F41.9 Anxiety disorder, unspecified; E78.00 Pure hypercholesterolemia, unspecified; E03.9 Hypothyroidism, unspecified; K86.1 Other chronic pancreatitis; Z95.5 Presence of coronary angioplasty implant and graft; Z90.49 Acquired absence of other specified parts of digestive tract; D63.1 Anemia in chronic kidney disease; R06.00 Dyspnea, unspecified; K86.81 Exocrine pancreatic insufficiency

== ENCOUNTER 2017-02-16 14:56 | Inpatient (IN) | payer MEDICAID ==
[2017-02-16 14:56] VITALS: BMI 27.4
--- NOTE | 2017-02-16 15:01 | C.PDOC ---
History Of Present Illness 31F c/o chronic abdominal pain and vomiting. she says she went to HD this morning but they would not dialyze her bc she was vomiting. she was recently dc from [facility] in [place] where she says she was for the last 2 months for osteomyelitis of chest wall. Time Seen by Provider: 02/16/17 15:00 Chief Complaint (Nursing): Abdominal Pain Past Medical History Vital Signs: Last Vital Signs Temp 97.4 F L 02/18/17 16:00 Pulse 94 H 02/18/17 16:00 Resp 20 02/18/17 16:00 BP 177/77 H 02/18/17 16:00 Pulse Ox 98 02/18/17 16:00 - Medical History PMH: Anemia, Anxiety, CHF (Florid), Diabetes, Fractures (Sep 2012 L foot), Gastritis, Gastrointestinal Ulcer (gastroparesis), Gall Bladder Disease ( gallbladder removed), Hepatitis, HTN, Hypercholesterolemia, Hyperthyroidism, Hypothyroidism, Kidney Stones, Pancreatitis (chronic), Peripheral Edema, End Stage Renal Disease, Chronic Kidney Disease, Seizures, Chronic Pain Surgical History: Cholecystectomy, Coronary Stent - [facility] Procedures ASSISTANCE WITH RESPIRATORY VENTILATION, 24-96 HRS, CPAP (11/27/16) CAUTERY TO STOP EPISTAX (03/22/14) CENTRAL VENOUS CATHETER PLACEMENT WITH GUIDANCE (11/06/14) DIALYSIS ARTERIOVENOSTOM (01/10/14) DRAINAGE OF RIGHT FOOT SKIN, EXTERNAL APPROACH (07/17/16) DRAINAGE OF RIGHT LOWER ARM SKIN, EXTERNAL APPROACH (05/25/16) ESOPHAGOGASTRODUODENOSCOPY [EGD] W/CLOSED BIOPSY (03/03/14) EXCISION OF STOMACH, ENDO, DIAGN (05/09/16) EXTIRPATE MATTER FROM R LOW ARM SUBCU/FASCIA, PERC (05/25/16) EXTRACTION OF RIGHT FOOT SKIN, EXTERNAL APPROACH (05/25/16) FLEXIBLE SIGMOIDOSCOPY (10/26/14) FLUOROSCOPY OF R JUGULAR VEIN USING L OSM CONTRAST, GUIDANCE (12/13/15) FLUOROSCOPY OF RIGHT SUBCLAVIAN VEIN, GUIDANCE (08/07/16) HEMODIALYSIS (04/05/15) INJECT INSULIN (12/23/12) INJECT/INFUSE ELECTROLYT (12/23/12) INJECT/INFUSE NEC (01/17/15) INSERT INFUSION DEV IN R INT JUGULAR VEIN, PERC (02/23/16) INSERTION OF INFUSION DEV INTO R BASILIC VEIN, PERC APPROACH (04/18/16) INSERTION OF INFUSION DEV INTO R SUBCLAV VEIN, PERC APPROACH (08/29/16) INSERTION OF INFUSION DEV INTO SUP VENA CAVA, PERC APPROACH (05/25/16) INSERTION OF INFUSION DEVICE INTO R ATRIUM, PERC APPROACH (12/13/15) INSERTION OF VAD INTO CHEST SUBCU/FASCIA, OPEN APPROACH (12/13/15) MEASURE OF CARDIAC SAMPL & PRESSURE, L HEART, PERC APPROACH (10/09/16) OTHER ENDOSCOPY OF SM INTEST (08/25/14) PACKED CELL TRANSFUSION (10/26/14) PERFORMANCE OF URINARY FILTRATION, MULTIPLE (10/30/16) PERFORMANCE OF URINARY FILTRATION, SINGLE (11/27/16) PLAIN RADIOGRAPHY OF LEFT HEART USING OTHER CONTRAST (10/09/16) PLAIN RADIOGRAPHY OF MULT COR ART USING OTH CONTRAST (10/09/16) PLICATION OF VENA CAVA (03/22/14) POST NASAL PAC FOR EPIST (03/22/14) REMOVAL OF VAD FROM TRUNK SUBCU/FASCIA, OPEN APPROACH (02/23/16) MELVIN KENNY DIALYSIS SHUNT (03/03/14) THERAPEUTIC ERYTHROCYTAPHERESIS (10/26/14) TRANSFUSE NONAUT RED BLOOD CELLS IN PERIPH VEIN, PERC (11/15/16) ULTRASONOGRAPHY OF RIGHT SUBCLAVIAN VEIN, GUIDANCE (08/29/16) VACCINATION NEC (10/26/14) VENOUS CATHETERIZATION FOR RENAL DIALYSIS (03/03/14) Family History: States: Other Other Family History: nc - Social History Hx Tobacco Use: No Hx Alcohol Use: No Hx Substance Use: No - Immunization History Hx Tetanus Toxoid Vaccination: No Hx Influenza Vaccination: Yes Hx Pneumococcal Vaccination: Yes Review Of Systems Except As Marked, All Systems Reviewed And Found Negative. Constitutional: Negative for: Fever Cardiovascular: Positive for: Chest Pain (over wound site) Respiratory: Negative for: Cough, Shortness of Breath Gastrointestinal: Positive for: Nausea, Vomiting, Abdominal Pain Neurological: Negative for: Altered Mental Status, Headache Physical Exam - Physical Exam Appears: Non-toxic Skin: Warm, Dry Eye(s): bilateral: PERRL Nose: No Epistaxis Oral Mucosa: Moist Tongue: No Swelling Lips: No Swelling Cardiovascular: Rhythm Regular Respiratory: No Decreased Breath Sounds, No Accessory Muscle Use, No Rales, No Rhonchi, No Stridor, No Wheezing Gastrointestinal/Abdominal: Soft, No Tenderness, No Distention, No Guarding, No Rebound Neurological/Psych: Oriented x3, Other (no focal deficits) ED Course And Treatment - Laboratory Results Result Diagrams: 02/17/17 07:53 02/17/17 07:53 O2 Sat by Pulse Oximetry: 100 Disposition - Disposition Disposition: HOSPITALIZED Disposition Time: 16:02 Condition: STABLE - Clinical Impression Clinical Impression: Intractable vomiting, Hypertension associated with diabetes
[2017-02-16 15:50] LABS: ALB/GLOB RATIO 0.9 (1.0-2.1)
[2017-02-16 15:51] LABS: CALCIUM 6.6 mg/dl (8.6-10.4)
[2017-02-16 15:54] LABS: BASO # 0.1 K/uL (0.0-0.2); BASO % 1.5 % (0.0-2.0); EOS % 12.9 % (0.0-4.0); HEMOGLOBIN 7.7 g/dL (11.0-16.0); LYMPH # 1.1 K/uL (1.0-4.3); LYMPH % 13.9 % (20.0-40.0); MEAN CELL VOLUME 93.1 fL (81.0-99.0); MEAN CORPUSCULAR HEMOGLOBIN 31.2 pg (27.0-31.0); MEAN CORPUSCULAR HGB CONC 33.5 g/dL (33.0-37.0); MEAN PLATELET VOLUME 7.1 fL (7.2-11.7); MONO # 0.4 K/uL (0.0-0.8); MONO % 5.1 % (0.0-10.0); NEUT # 5.4 K/uL (1.8-7.0); NEUT % 66.6 % (50.0-75.0); RBC 2.46 Mil/uL (3.80-5.20); RED CELL DISTRIBUTION WIDTH 15.2 % (11.5-14.5)
[2017-02-16] MEDS ORDERED: DiphenhydrAMINE 50 mg/ml Inj IVP STA ×3 (17:53→20:09)
--- NOTE | 2017-02-16 18:14 | CP.PCM.HP ---
Past Patient History - Infectious Disease Hx of Infectious Diseases: None - Tetanus Immunizations Tetanus Immunization: Unknown - Past Medical History & Family History Past Medical History?: Yes - Past Social History Smoking Status: Never Smoked - CARDIAC Hx Congestive Heart Failure: Yes ([place]) Hx Hypercholesterolemia: Yes Hx Hypertension: Yes Hx Peripheral Edema: Yes - NEUROLOGICAL Hx Seizures: Yes - HEENT Hx HEENT Problems: Yes Hx Cataracts: Yes Hx Glaucoma: Yes - RENAL Hx Chronic Kidney Disease: Yes Hx Kidney Stones: Yes - ENDOCRINE/METABOLIC Hx Hyperthyroidism: Yes Hx Hypothyroidism: Yes - HEMATOLOGICAL/ONCOLOGICAL Hx Anemia: Yes - INTEGUMENTARY Hx Dermatological Problems: Yes Other/Comment: DRY ITCHY SKIN ;multiple/generalized dark spots on skin - MUSCULOSKELETAL/RHEUMATOLOGICAL Hx Fractures: Yes (Sep 2012 L foot) - GASTROINTESTINAL Hx Gall Bladder Disease: Yes (gallbladder removed) Hx Gastritis: Yes Hx Pancreatitis: Yes (chronic) - GENITOURINARY/GYNECOLOGICAL Hx Genitourinary Disorders: No - PSYCHIATRIC Hx Anxiety: Yes Hx Substance Use: No - SURGICAL HISTORY Hx Cholecystectomy: Yes Hx Coronary Stent: Yes - ANESTHESIA Hx Anesthesia: Yes Hx Anesthesia Reactions: No Hx Malignant Hyperthermia: No Meds Allergies/Adverse Reactions: Allergies Allergy/AdvReac Type Severity Reaction Status Date / Time ketorolac tromethamine Allergy RASH Verified 02/16/17 14:57 [From Toradol] latex Allergy RASH Verified 02/16/17 14:57 morphine Allergy RASH Verified 02/16/17 14:57 tramadol Allergy RASH Verified 02/16/17 14:57 Physical Exam - Constitutional Appears: Well - Head Exam Head Exam: ATRAUMATIC, NORMAL INSPECTION, NORMOCEPHALIC - Eye Exam Eye Exam: EOMI, Normal appearance, PERRL Pupil Exam: NORMAL ACCOMODATION, PERRL - ENT Exam ENT Exam: Mucous Membranes Moist, Normal Exam - Neck Exam Neck exam: Positive for: Normal Inspection - Respiratory Exam Respiratory Exam: Decreased Breath Sounds - Cardiovascular Exam Cardiovascular Exam: REGULAR RHYTHM, +S1, +S2 - GI/Abdominal Exam GI & Abdominal Exam: Soft - Rectal Exam Rectal Exam: Deferred Results - Vital Signs Recent Vital Signs: Last Vital Signs Temp 98.6 F 02/16/17 14:57 Pulse 102 H 02/16/17 14:57 Resp 26 H 02/16/17 14:57 BP 178/94 H 02/16/17 16:11 Pulse Ox 100 02/16/17 15:33 - Labs Result Diagrams: 02/16/17 15:35 02/16/17 15:35
[2017-02-16] MEDS: Epoetin Alfa Dialysis 20000 UNIT/ML Inj IV SCH (20:03)
--- NOTE | 2017-02-16 23:51 | CP.PCM.CON ---
History of Present Illness - History of Present Illness History of Present Illness: REASONS FOR CONSULT : ESRD IN URGENT NEED FOR HD ANEMIA OF CKD ALL EMR REVIEWED LABS REVIEWED .. PT WAS SEEN AND EXAMINED WHILE ON HD 31F c/o chronic abdominal pain and vomiting. she says she went to HD this morning but they would not dialyze her bc she was vomiting. she was recently dc from [facility] in [place] where she says she was for the last 2 months for osteomyelitis of chest wall. Time Seen by Provider: 02/16/17 15:00 Chief Complaint (Nursing): Abdominal Pain Past Medical History Vital Signs: Last Vital Signs Temp 98.6 F 02/16/17 14:57 Pulse 102 H 02/16/17 14:57 Resp 26 H 02/16/17 14:57 BP 217/99 H 02/16/17 14:57 Pulse Ox 100 02/16/17 15:01 - Medical History PMH: Anemia, Anxiety, CHF ([place]), Diabetes, Fractures (Sep 2012 L foot), Gastritis, Gastrointestinal Ulcer (gastroparesis), Gall Bladder Disease ( gallbladder removed), Hepatitis, HTN, Hypercholesterolemia, Hyperthyroidism, Hypothyroidism, Kidney Stones, Pancreatitis (chronic), Peripheral Edema, End Stage Renal Disease, Chronic Kidney Disease, Seizures, Chronic Pain Surgical History: Cholecystectomy, Coronary Stent Past Patient History - Infectious Disease Hx of Infectious Diseases: None - Tetanus Immunizations Tetanus Immunization: Unknown - Past Medical History & Family History Past Medical History?: Yes - Past Social History Smoking Status: Never Smoked - CARDIAC Hx Congestive Heart Failure: Yes ([place]) Hx Hypercholesterolemia: Yes Hx Hypertension: Yes Hx Peripheral Edema: Yes - NEUROLOGICAL Hx Seizures: Yes - HEENT Hx HEENT Problems: Yes Hx Cataracts: Yes Hx Glaucoma: Yes - RENAL Hx Chronic Kidney Disease: Yes Hx Kidney Stones: Yes - ENDOCRINE/METABOLIC Hx Hyperthyroidism: Yes Hx Hypothyroidism: Yes - HEMATOLOGICAL/ONCOLOGICAL Hx Anemia: Yes - INTEGUMENTARY Hx Dermatological Problems: Yes Other/Comment: DRY ITCHY SKIN ;multiple/generalized dark spots on skin - MUSCULOSKELETAL/RHEUMATOLOGICAL Hx Fractures: Yes (Sep 2012 L foot) - GASTROINTESTINAL Hx Gall Bladder Disease: Yes (gallbladder removed) Hx Gastritis: Yes Hx Pancreatitis: Yes (chronic) - GENITOURINARY/GYNECOLOGICAL Hx Genitourinary Disorders: No - PSYCHIATRIC Hx Anxiety: Yes Hx Substance Use: No - SURGICAL HISTORY Hx Cholecystectomy: Yes Hx Coronary Stent: Yes - ANESTHESIA Hx Anesthesia: Yes Hx Anesthesia Reactions: No Hx Malignant Hyperthermia: No Meds Allergies/Adverse Reactions: Allergies Allergy/AdvReac Type Severity Reaction Status Date / Time ketorolac tromethamine Allergy RASH Verified 02/16/17 14:57 [From Toradol] latex Allergy RASH Verified 02/16/17 14:57 morphine Allergy RASH Verified 02/16/17 14:57 tramadol Allergy RASH Verified 02/16/17 14:57 - Medications Medications: Current Medications Calcium Acetate (Phoslo) 667 mg PO TID [facility] Clonidine HCl (Catapres-Tts3 0.3 Mg/24 Hr) 1 patch TD Q7D@1000 [facility] Docusate Sodium (Colace) 100 mg PO TID [facility] Epoetin James (Procrit) 20,000 unit IV MWF [facility] Stop: 02/21/17 09:01 Last Admin: 02/16/17 20:03 Dose: 20,000 unit Heparin Sodium (Porcine) (Heparin) 5,000 units SC Q12 [facility] Hydromorphone HCl (Dilaudid) 2 mg IVP Q3 PRN PRN Reason: Pain, severe (8-10) Stop: 02/18/17 19:01 Last Admin: 02/16/17 19:01 Dose: 2 mg Insulin Aspart (Novolog) 6 unit SC AC [facility] Insulin Detemir (Levemir) 12 unit SC Q12 [facility] Metoclopramide HCl (Reglan) 10 mg PO DAILY [facility] Nifedipine (Procardia Xl) 60 mg PO BID [facility] Pantoprazole Sodium (Protonix Ec Tab) 40 mg PO DAILY [facility] Results - Vital Signs Recent Vital Signs: Last Vital Signs Temp 97 F L 02/16/17 21:10 Pulse 107 H 02/16/17 21:10 Resp 16 02/16/17 21:10 BP 124/80 02/16/17 21:10 Pulse Ox 100 02/16/17 20:10 - Labs Result Diagrams: 02/16/17 15:35 02/16/17 15:35 Labs: Laboratory Results - last 24 hr 02/16/17 19:49 POC Glucose (mg/dL) 187 H Assessment & Plan - Assessment and Plan (Free Text) Assessment: ESRD ON HD M W F AND SAT .. ON HD NOW STAT ANEMIA OF CKD .. WILL GIVE EPO AND VENOFER .. REPEAT H/H .. IF HGB < 7 THEN TRANSFUSE MULTIPLE CO MORBIDITIES P : C/O CURRENT CARE C/O PRESENT MANAGEMENT WILL F/U CLOSELY - Date & Time Date: 02/16/17 Time: 17:00
[2017-02-17] MEDS: DiphenhydrAMINE 50 mg/ml Inj IVP PRN ×5 (01:11→19:45)
--- NOTE | 2017-02-17 07:34 | CP.PCM.CON ---
<Hayley Seals - Last Filed: 02/17/17 10:03> History of Present Illness - History of Present Illness History of Present Illness: Gastroenterology Fellow/PGY5 Consult Note 31 year old female with history of Diabetes, ESRD on HD MWF, chronic anemia 2/2 kidney disease, PUD 04/2016, biliary erosive Gastritis, Gastroparesis 2001, and esophageal candidiasis presenting with vomiting. Patient accounts over fifteen episodes of bilious vomiting prior to dialysis yesterday leading to EER presentation after attempting to present to outpatient dialysis. Patient has since received zofran and underwent dialysis yesterday with note of improvement in vomiting to two episodes overnight. Tolerating sips of water. Notes streaks of blood with recurrent vomitus yesterday. Admits to recent discharge after two month stay at [facility] for left chest wall osteomyelitis. Notes vomiting at [facility] controlled with Tigan administration. Notes remote Ibuprofen use once a week for a month prior to that admission for chest pain. Admits to EGD performed 2016 during [facility] stay endorsed to be normal. Notes chronic mild epigastric to right mid-epigastrium pain, pain scale 3/10. Associated heartburn, indigestion, and acid reflux. Takes Pepcid and Nexium daily. Endorses compliance to appropriate diet with acid reflux, gastroparesis, and ESRD. EMAR review of 61 evaluations for gastroparesis with nausea and vomiting. Notes every other day bowel habits. Multiple prior EGDs with PUD (2013,2015), biliary/erosive/ nodular Gastritis (2014), LAGC esophagitis(2015), PUD(2013, 2015), duodenitis ( 2013), and esophageal candidiasis (2014). No prior colonoscopy. Family- Mother- Diabetes, Paternal aunt- stomach cancer diagnosed at 60 years of age Social- denies tobacco, alcohol, illicit drug use Surgery- cholecystectomy 2010, abdominal abscess "between pancreas and stomach" 2001, left chest wall debridement 2016 Review of Systems - Review of Systems Review of Systems: 12-point review of systems negative except for as above Past Patient History - Infectious Disease Hx of Infectious Diseases: None - Tetanus Immunizations Tetanus Immunization: Unknown - Past Medical History & Family History Past Medical History?: Yes - Past Social History Smoking Status: Never Smoked - CARDIAC Hx Cardiac Disorders: Yes Hx Congestive Heart Failure: Yes ([place]) Hx Hypercholesterolemia: Yes Hx Hypertension: Yes Hx Peripheral Edema: Yes - PULMONARY Hx Respiratory Disorders: No - NEUROLOGICAL Hx Neurological Disorder: Yes Hx Seizures: Yes - HEENT Hx HEENT Problems: Yes Hx Cataracts: Yes Hx Glaucoma: Yes - RENAL Hx Chronic Kidney Disease: Yes Hx Dialysis: Yes Type of Dialysis Access: la av shunt Date of Last Dialysis Treatment: 02/16/17 Hx Kidney Stones: Yes Hx Renal Failure: Yes - ENDOCRINE/METABOLIC Hx Endocrine Disorders: Yes Hx Diabetes Mellitus Type 1: Yes Hx Hyperthyroidism: Yes Hx Hypothyroidism: Yes - HEMATOLOGICAL/ONCOLOGICAL Hx Blood Disorders: Yes Hx Anemia: Yes - INTEGUMENTARY Hx Dermatological Problems: Yes Other/Comment: DRY ITCHY SKIN ;multiple/generalized dark spots on skin - MUSCULOSKELETAL/RHEUMATOLOGICAL Hx Musculoskeletal Disorders: Yes Hx Falls: No Hx Fractures: Yes (Sep 2012 L foot) - GASTROINTESTINAL Hx Gastrointestinal Disorders: Yes Hx Gall Bladder Disease: Yes (gallbladder removed) Hx Gastritis: Yes Hx Pancreatitis: Yes (chronic) - GENITOURINARY/GYNECOLOGICAL Hx Genitourinary Disorders: No - PSYCHIATRIC Hx Psychophysiologic Disorder: Yes Hx Anxiety: Yes Hx Substance Use: No - SURGICAL HISTORY Hx Surgeries: Yes Hx Cholecystectomy: Yes Hx Coronary Stent: Yes - ANESTHESIA Hx Anesthesia: Yes Hx Anesthesia Reactions: No Hx Malignant Hyperthermia: No Has any member of the family had a problem w/ anesthesia?: No Meds Allergies/Adverse Reactions: Allergies Allergy/AdvReac Type Severity Reaction Status Date / Time ketorolac tromethamine Allergy RASH Verified 02/16/17 14:57 [From Toradol] latex Allergy RASH Verified 02/16/17 14:57 morphine Allergy RASH Verified 02/16/17 14:57 tramadol Allergy RASH Verified 02/16/17 14:57 - Medications Medications: Current Medications Calcium Acetate (Phoslo) 667 mg PO TID REPLACED BY [facility] Clonidine HCl (Catapres-Tts3 0.3 Mg/24 Hr) 1 patch TD Q7D@1000 REPLACED BY [facility] Diphenhydramine HCl (Benadryl) 25 mg IVP Q3 PRN PRN Reason: Itching / Pruritus Last Admin: 02/17/17 04:22 Dose: 25 mg Docusate Sodium (Colace) 100 mg PO TID REPLACED BY [facility] Epoetin James (Procrit) 20,000 unit IV MWF [facility] Stop: 02/21/17 09:01 Last Admin: 02/16/17 20:03 Dose: 20,000 unit Heparin Sodium (Porcine) (Heparin) 5,000 units SC Q12 REPLACED BY [facility] Hydromorphone HCl (Dilaudid) 2 mg IVP Q3 PRN PRN Reason: Pain, severe (8-10) Stop: 02/18/17 19:01 Last Admin: 02/17/17 04:22 Dose: 2 mg Insulin Aspart (Novolog) 6 unit SC AC REPLACED BY [facility] Insulin Detemir (Levemir) 12 unit SC Q12 REPLACED BY [facility] Metoclopramide HCl (Reglan) 10 mg PO DAILY REPLACED BY [facility] Nifedipine (Procardia Xl) 60 mg PO BID REPLACED BY [facility] Ondansetron HCl (Zofran Inj) 4 mg IVP Q4H PRN PRN Reason: Nausea/Vomiting Pantoprazole Sodium (Protonix Ec Tab) 40 mg PO DAILY REPLACED BY [facility] Physical Exam - Constitutional Appears: Non-toxic, No Acute Distress - Head Exam Head Exam: ATRAUMATIC, NORMOCEPHALIC - Eye Exam Eye Exam: EOMI, PERRL Pupil Exam: PERRL. absent: Miosis, Mydriatic - ENT Exam ENT Exam: Mucous Membranes Moist, Normal Oropharynx - Neck Exam Neck exam: Positive for: Full Rom, Normal Inspection - Respiratory Exam Respiratory Exam: Clear to Auscultation Bilateral. absent: Rales, Rhonchi, Wheezes - Cardiovascular Exam Cardiovascular Exam: RRR, +S1, +S2. absent: Gallop, Rubs - GI/Abdominal Exam GI & Abdominal Exam: Normal Bowel Sounds, Soft, Tenderness. absent: Distended, Firm, Guarding, Organomegaly, Rebound, Rigid Additional comments: mild epigastric tenderness to palpation - Extremities Exam Extremities exam: Positive for: full ROM. Negative for: pedal edema - Neurological Exam Neurological exam: Alert - Psychiatric Exam Psychiatric exam: Normal Affect, Normal Mood - Skin Skin Exam: Dry, Intact, Normal Color, Warm Results - Vital Signs Recent Vital Signs: Last Vital Signs Temp 98.1 F 02/17/17 01:00 Pulse 100 H 02/17/17 01:00 Resp 19 02/17/17 01:00 BP 170/84 H 02/17/17 01:00 Pulse Ox 100 02/17/17 01:00 - Labs Result Diagrams: 02/17/17 07:53 02/17/17 07:53 Labs: Laboratory Results - last 24 hr 02/16/17 02/17/17 19:49 06:18 POC Glucose (mg/dL) 187 H 390 H Assessment & Plan - Assessment and Plan (Free Text) Assessment: 31 year old female with history of Diabetes, ESRD on HD MWF, chronic anemia 2/2 kidney disease, PUD 04/2016, biliary erosive Gastritis, Gastroparesis, and esophageal candidiasis presenting with intractable vomiting. Multiple prior EGDs with PUD (2013,2015), biliary/erosive/ nodular Gastritis (2014), LAGC esophagitis(2015), and PUD(2-16), duodenitis (2013), and esophageal candidiasis (2014). No prior colonoscopy. Recent EGD 01/2017 during [facility] stay endorsed to be normal. Plan: >DDx: Gastroparesis, uremia vomiting, uncontrolled diabetes >ordered A1c >supportive care: IVFs, anti-emetics, PPI >clear liquids as tolerated, Ensure clear supplement >counselled on small frequent meals >Miralax daily >avoid narcotics >mildly elevated ALP -ordered GGT, Hepatitis panel >anemia of chronic kidney disease >monitor H/H >will follow clinical course <Gunnar Timmons - Last Filed: 02/17/17 11:47> Meds - Medications Medications: Current Medications Calcium Acetate (Phoslo) 667 mg PO TID REPLACED BY [facility] Last Admin: 02/17/17 09:48 Dose: Not Given Clonidine HCl (Catapres-Tts3 0.3 Mg/24 Hr) 1 patch TD Q7D@1000 REPLACED BY [facility] Diphenhydramine HCl (Benadryl) 25 mg IVP Q3 PRN PRN Reason: Itching / Pruritus Last Admin: 02/17/17 08:04 Dose: 25 mg Docusate Sodium (Colace) 100 mg PO TID REPLACED BY [facility] Last Admin: 02/17/17 09:47 Dose: Not Given Epoetin James (Procrit) 20,000 unit IV MWF REPLACED BY [facility] Stop: 02/21/17 09:01 Last Admin: 02/16/17 20:03 Dose: 20,000 unit Heparin Sodium (Porcine) (Heparin) 5,000 units SC Q12 REPLACED BY [facility] Last Admin: 02/17/17 09:48 Dose: Not Given Hydromorphone HCl (Dilaudid) 2 mg IVP Q3 PRN PRN Reason: Pain, severe (8-10) Stop: 02/18/17 19:01 Last Admin: 02/17/17 08:01 Dose: 2 mg Insulin Aspart (Novolog) 6 unit SC AC REPLACED BY [facility] Last Admin: 02/17/17 08:45 Dose: 6 unit Insulin Detemir (Levemir) 12 unit SC Q12 REPLACED BY [facility] Last Admin: 02/17/17 09:47 Dose: Not Given Metoclopramide HCl (Reglan) 10 mg PO DAILY REPLACED [facility] Last Admin: 02/17/17 09:48 Dose: Not Given Nifedipine (Procardia Xl) 60 mg PO BID REPLACED BY [facility] Last Admin: 02/17/17 09:47 Dose: 60 mg Ondansetron HCl (Zofran Inj) 4 mg IVP Q4H PRN PRN Reason: Nausea/Vomiting Pantoprazole Sodium (Protonix Ec Tab) 40 mg PO DAILY REPLACED [facility] Last Admin: 02/17/17 09:48 Dose: Not Given Polyethylene Glycol (Miralax) 17 gm PO DAILY [facility]PL[facility]ED BY [facility] Results - Vital Signs Recent Vital Signs: Last Vital Signs Temp 97.3 F L 02/17/17 08:00 Pulse 86 02/17/17 08:00 Resp 20 02/17/17 08:00 BP 150/86 02/17/17 08:00 Pulse Ox 100 02/17/17 08:00 - Labs Result Diagrams: 02/17/17 07:53 02/17/17 07:53 Labs: Laboratory Results - last 24 hr 02/16/17 02/17/17 02/17/17 19:49 06:18 07:53 WBC 7.8 RBC 2.49 L Hgb 7.8 L Hct 23.2 L MCV 93.1 MCH 31.3 H MCHC 33.6 RDW 15.3 H Plt Count 351 MPV 7.5 Neut % (Auto) 67.6 Lymph % (Auto) 15.8 L [place] % (Auto) 6.6 Eos % (Auto) 8.7 H Baso % (Auto) 1.3 Neut # 5.3 Lymph # 1.2 [place] # 0.5 Eos # 0.7 Baso # 0.1 PT INR Sodium Potassium Chloride Carbon Dioxide Anion Gap BUN Creatinine Est GFR ( Amer) Est GFR (Non-Af Amer) POC Glucose (mg/dL) 187 H 390 H Random Glucose Calcium Total Bilirubin GGT AST ALT Alkaline Phosphatase Total Protein Albumin Globulin Albumin/Globulin Ratio Blood Type Antibody Screen 02/17/17 02/17/17 02/17/17 07:53 07:53 07:53 WBC RBC Hgb Hct MCV MCH MCHC RDW Plt Count MPV Neut % (Auto) Lymph % (Auto) [place] % (Auto) Eos % (Auto) Baso % (Auto) Neut # Lymph # [place] # Eos # Baso # PT 13.3 H INR 1.2 Sodium 137 Potassium 3.5 L Chloride 91 L Carbon Dioxide 31 H Anion Gap 19 BUN 42 H Creatinine 5.1 H Est GFR ( Amer) 12 Est GFR (Non-Af Amer) 10 POC Glucose (mg/dL) Random Glucose 336 H Calcium 7.5 L Total Bilirubin 0.7 GGT 37 AST 24 ALT 21 Alkaline Phosphatase 169 H Total Protein 8.0 Albumin 4.0 Globulin 4.0 H Albumin/Globulin Ratio 1.0 Blood Type A POSITIVE Antibody Screen Negative Attending/Attestation - Attestation I have personally seen and examined this patient.: Yes I have fully participated in the care of the patient.: Yes I have reviewed all pertinent clinical information: Yes Notes (Text): 02/17/17 11:45 31 year old female with history of DM, ESRD on HD, anemia, PUD, erosive Gastritis, Gastroparesis, and esophageal candidiasis presenting with intractable vomiting. 1. Gastroparesis 2. History of PUD Plan: -liquid diet and advance as tolerated -small frequent meals / low fat -continue PPI -reglan daily currently -bowel regimen with miralax -minimize narcotics -ensure supplements
[2017-02-17 08:01] LABS: BASO # 0.1 K/uL (0.0-0.2); BASO % 1.3 % (0.0-2.0); EOS # 0.7 K/uL (0.0-0.7); EOS % 8.7 % (0.0-4.0); HEMOGLOBIN 7.8 g/dL (11.0-16.0); LYMPH # 1.2 K/uL (1.0-4.3); LYMPH % 15.8 % (20.0-40.0); MEAN CELL VOLUME 93.1 fL (81.0-99.0); MEAN CORPUSCULAR HEMOGLOBIN 31.3 pg (27.0-31.0); MEAN CORPUSCULAR HGB CONC 33.6 g/dL (33.0-37.0); MEAN PLATELET VOLUME 7.5 fL (7.2-11.7); MONO # 0.5 K/uL (0.0-0.8); MONO % 6.6 % (0.0-10.0); NEUT # 5.3 K/uL (1.8-7.0); NEUT % 67.6 % (50.0-75.0); RBC 2.49 Mil/uL (3.80-5.20); RED CELL DISTRIBUTION WIDTH 15.3 % (11.5-14.5); WHITE BLOOD COUNT 7.8 K/uL (4.8-10.8)
[2017-02-17 08:06] LABS: INR 1.2; PROTHROMBIN TIME 13.3 SECONDS (9.7-12.2)
[2017-02-17 08:20] LABS: CALCIUM 7.5 mg/dl (8.6-10.4)
[2017-02-17] MEDS: (Novolog) Insulin Aspart, Recombinant 100 u/ml 10 ml vial SC SCH ×4 (08:45→22:53)
[2017-02-17] MEDS: NIFEdipine 60 mg ER Tab PO SCH ×2 (09:47→19:48)
[2017-02-17] MEDS: Insulin Detemir 100 units/ml Vial (Levemir) SC SCH ×2 (09:47→21:56)
[2017-02-17] MEDS: Pantoprazole 40 mg EC Tab PO SCH (09:48)
[2017-02-17] MEDS: POLYETHYLENE GLYCOL 3350 17 GM/Dose PACKET PO SCH (11:30)
--- NOTE | 2017-02-17 14:29 | CP.PCM.PN ---
Subjective - Date & Time of Evaluation Date of Evaluation: 02/17/17 Time of Evaluation: 11:40 - Subjective Subjective: clinically same Objective - Vital Signs/Intake and Output Vital Signs (last 24 hours): Temp Pulse Resp BP Pulse Ox 97.3 F L 86 20 150/86 100 02/17/17 08:00 02/17/17 08:00 02/17/17 08:00 02/17/17 08:00 02/17/17 08:00 Intake and Output: 02/17/17 02/17/17 06:59 18:59 Intake Total 50 Balance 50 - Medications Medications: Current Medications Calcium Acetate (Phoslo) 667 mg PO TID [facility] Last Admin: 02/17/17 14:14 Dose: Not Given Clonidine HCl (Catapres-Tts3 0.3 Mg/24 Hr) 1 patch TD Q7D@1000 [facility] Diphenhydramine HCl (Benadryl) 50 mg IVP Q3 PRN PRN Reason: Itching / Pruritus Docusate Sodium (Colace) 100 mg PO TID [facility] Last Admin: 02/17/17 14:12 Dose: Not Given Epoetin James (Procrit) 20,000 unit IV MWF [facility] Stop: 02/21/17 09:01 Last Admin: 02/16/17 20:03 Dose: 20,000 unit Ferric Sodium Gluconate Complex (Ferrlecit) 125 mg IVPB ONCE ONE Stop: 02/17/17 14:31 Heparin Sodium (Porcine) (Heparin) 5,000 units SC Q12 [facility] Last Admin: 02/17/17 09:48 Dose: Not Given Hydromorphone HCl (Dilaudid) 2 mg IVP Q3 PRN PRN Reason: Pain, severe (8-10) Stop: 02/18/17 19:01 Last Admin: 02/17/17 11:44 Dose: 2 mg Insulin Aspart (Novolog) 6 unit SC AC [facility] Last Admin: 02/17/17 11:30 Dose: Not Given Insulin Detemir (Levemir) 12 unit SC Q12 [facility] Last Admin: 02/17/17 09:47 Dose: Not Given Metoclopramide HCl (Reglan) 10 mg PO DAILY [facility] Last Admin: 02/17/17 09:48 Dose: Not Given Nifedipine (Procardia Xl) 60 mg PO BID [facility] Last Admin: 02/17/17 09:47 Dose: 60 mg Ondansetron HCl (Zofran Inj) 4 mg IVP Q4H PRN PRN Reason: Nausea/Vomiting Pantoprazole Sodium (Protonix Ec Tab) 40 mg PO DAILY [facility] Last Admin: 02/17/17 09:48 Dose: Not Given Polyethylene Glycol (Miralax) 17 gm PO DAILY [facility] Last Admin: 02/17/17 11:30 Dose: Not Given - Labs Labs: 02/17/17 07:53 02/17/17 07:53 PT 13.3 SECONDS (9.7-12.2) H 02/17/17 07:53 INR 1.2 02/17/17 07:53 - Constitutional Appears: Well - Head Exam Head Exam: ATRAUMATIC, NORMAL INSPECTION, NORMOCEPHALIC - Eye Exam Eye Exam: EOMI, Normal appearance, PERRL Pupil Exam: NORMAL ACCOMODATION, PERRL - ENT Exam ENT Exam: Mucous Membranes Moist, Normal Exam - Neck Exam Neck Exam: Full ROM, Normal Inspection. absent: Lymphadenopathy - Respiratory Exam Respiratory Exam: Decreased Breath Sounds - Cardiovascular Exam Cardiovascular Exam: REGULAR RHYTHM, +S1, +S2 - GI/Abdominal Exam GI & Abdominal Exam: Soft, Diminished Bowel Sounds - Rectal Exam Rectal Exam: Deferred
[2017-02-17] MEDS ORDERED: Ferric Sodium Gluconat Complex 62.5 mg/5 ml Vial IVPB ONE (14:30)
[2017-02-17 14:54] LABS: IRON 41 ug/dL (37-170)
[2017-02-17 15:04] LABS: TOTAL IRON BINDING CAPACITY 214 ug/dL (250-450)
[2017-02-17] MEDS: DiphenhydrAMINE 50 mg/ml Inj IVP STA ×2 (15:30→15:45)
--- NOTE | 2017-02-17 17:51 | CP.PCM.PN ---
Subjective - Date & Time of Evaluation Date of Evaluation: 02/17/17 Time of Evaluation: 17:49 - Subjective Subjective: on hd now finishing up tx vss glenna proc Dr Phillips to follow Objective - Vital Signs/Intake and Output Vital Signs (last 24 hours): Temp Pulse Resp BP Pulse Ox 97.9 F 97 H 20 91/67 L 100 02/17/17 14:20 02/17/17 14:20 02/17/17 14:20 02/17/17 17:00 02/17/17 14:20 Intake and Output: 02/17/17 02/17/17 06:59 18:59 Intake Total 50 Balance 50 - Medications Medications: Current Medications Calcium Acetate (Phoslo) 667 mg PO TID [facility] Last Admin: 02/17/17 14:14 Dose: Not Given Clonidine HCl (Catapres-Tts3 0.3 Mg/24 Hr) 1 patch TD Q7D@1000 [facility] Diphenhydramine HCl (Benadryl) 50 mg IVP Q3 PRN PRN Reason: Itching / Pruritus Docusate Sodium (Colace) 100 mg PO TID [facility] Last Admin: 02/17/17 14:12 Dose: Not Given Epoetin James (Procrit) 20,000 unit IV MWF [facility] Stop: 02/21/17 09:01 Last Admin: 02/16/17 20:03 Dose: 20,000 unit Heparin Sodium (Porcine) (Heparin) 5,000 units SC Q12 [facility] Last Admin: 02/17/17 09:48 Dose: Not Given Hydromorphone HCl (Dilaudid) 2 mg IVP Q3 PRN PRN Reason: Pain, severe (8-10) Stop: 02/18/17 19:01 Last Admin: 02/17/17 15:42 Dose: 2 mg Insulin Aspart (Novolog) 6 unit SC AC [facility] Last Admin: 02/17/17 11:30 Dose: Not Given Insulin Detemir (Levemir) 12 unit SC Q12 [facility] Last Admin: 02/17/17 09:47 Dose: Not Given Metoclopramide HCl (Reglan) 10 mg PO DAILY [facility] Last Admin: 02/17/17 09:48 Dose: Not Given Nifedipine (Procardia Xl) 60 mg PO BID [facility] Last Admin: 02/17/17 09:47 Dose: 60 mg Ondansetron HCl (Zofran Inj) 4 mg IVP Q4H PRN PRN Reason: Nausea/Vomiting Pantoprazole Sodium (Protonix Ec Tab) 40 mg PO DAILY [facility] Last Admin: 02/17/17 09:48 Dose: Not Given Polyethylene Glycol (Miralax) 17 gm PO DAILY [facility] Last Admin: 02/17/17 11:30 Dose: Not Given - Labs Labs: 02/17/17 07:53 02/17/17 07:53 PT 13.3 SECONDS (9.7-12.2) H 02/17/17 07:53 INR 1.2 02/17/17 07:53 - Constitutional Appears: Non-toxic - Head Exam Head Exam: NORMAL INSPECTION - Eye Exam Eye Exam: Normal appearance - Neck Exam Neck Exam: Normal Inspection - Cardiovascular Exam Cardiovascular Exam: REGULAR RHYTHM - GI/Abdominal Exam GI & Abdominal Exam: Soft - Neurological Exam Neurological Exam: Alert, Awake, Oriented x3 - Psychiatric Exam Psychiatric exam: Normal Mood
[2017-02-18] MEDS: DiphenhydrAMINE 50 mg/ml Inj IVP PRN ×7 (02:17→22:58)
[2017-02-18] MEDS: (Novolog) Insulin Aspart, Recombinant 100 u/ml 10 ml vial SC SCH ×7 (08:12→22:59)
--- NOTE | 2017-02-18 09:18 | CP.PCM.PN ---
<Hayley Seals - Last Filed: 02/18/17 09:15> Subjective - Date & Time of Evaluation Date of Evaluation: 02/18/17 Time of Evaluation: 09:15 - Subjective Subjective: Gastroenterology Fellow/PGY5 Progress Note Patient notes severe abdominal pain this morning, pain scale 10/10. One bilious vomitus today and no vomiting yesterday. Tolerated liquid diet yesterday. No bowel movement yesterday. A 12-point review of systems negative except for as above. Objective - Vital Signs/Intake and Output Vital Signs (last 24 hours): Temp Pulse Resp BP Pulse Ox 98 F 103 H 20 128/78 100 02/17/17 17:25 02/17/17 19:52 02/17/17 19:52 02/17/17 19:52 02/17/17 17:25 Intake and Output: 02/18/17 02/18/17 06:59 18:59 Intake Total 320 Balance 320 - Medications Medications: Current Medications Calcium Acetate (Phoslo) 667 mg PO TID [facility] Last Admin: 02/17/17 18:08 Dose: Not Given Clonidine HCl (Catapres-Tts3 0.3 Mg/24 Hr) 1 patch TD Q7D@1000 [facility] Diphenhydramine HCl (Benadryl) 50 mg IVP Q3 PRN PRN Reason: Itching / Pruritus Last Admin: 02/18/17 08:21 Dose: 50 mg Docusate Sodium (Colace) 100 mg PO TID [facility] Last Admin: 02/17/17 18:07 Dose: Not Given Epoetin James (Procrit) 20,000 unit IV MWF [facility] Stop: 02/21/17 09:01 Last Admin: 02/16/17 20:03 Dose: 20,000 unit Heparin Sodium (Porcine) (Heparin) 5,000 units SC Q12 [facility] Last Admin: 02/17/17 21:55 Dose: Not Given Hydromorphone HCl (Dilaudid) 2 mg IVP Q3 PRN PRN Reason: Pain, severe (8-10) Stop: 02/18/17 19:01 Last Admin: 02/18/17 08:18 Dose: 2 mg Insulin Aspart (Novolog) 6 unit SC AC [facility] Last Admin: 02/18/17 08:12 Dose: 6 unit Insulin Aspart (Novolog) 0 unit SC ACHS [facility] PRN Reason: Protocol Last Admin: 02/17/17 22:53 Dose: 3 unit Insulin Detemir (Levemir) 12 unit SC Q12 [facility] Last Admin: 02/17/17 21:56 Dose: 12 unit Metoclopramide HCl (Reglan) 10 mg PO DAILY [facility] Last Admin: 02/17/17 09:48 Dose: Not Given Nifedipine (Procardia Xl) 60 mg PO BID [facility] Last Admin: 02/17/17 19:48 Dose: 60 mg Ondansetron HCl (Zofran Inj) 4 mg IVP Q4H PRN PRN Reason: Nausea/Vomiting Pantoprazole Sodium (Protonix Ec Tab) 40 mg PO DAILY [facility] Last Admin: 02/17/17 09:48 Dose: Not Given Polyethylene Glycol (Miralax) 17 gm PO DAILY [facility] Last Admin: 02/17/17 11:30 Dose: Not Given - Labs Labs: 02/17/17 07:53 02/17/17 07:53 PT 13.3 SECONDS (9.7-12.2) H 02/17/17 07:53 INR 1.2 02/17/17 07:53 - Constitutional Appears: Non-toxic, No Acute Distress - Head Exam Head Exam: ATRAUMATIC, NORMOCEPHALIC - Eye Exam Eye Exam: EOMI, PERRL Pupil Exam: PERRL. absent: Miosis, Mydriatic - ENT Exam ENT Exam: Mucous Membranes Moist, Normal Oropharynx - Neck Exam Neck Exam: Full ROM, Normal Inspection - Respiratory Exam Respiratory Exam: Clear to Ausculation Bilateral. absent: Rales, Rhonchi, Wheezes - Cardiovascular Exam Cardiovascular Exam: RRR, +S1, +S2. absent: Gallop, Rubs - GI/Abdominal Exam GI & Abdominal Exam: Soft, Tenderness, Normal Bowel Sounds. absent: Distended, Firm, Guarding, Rigid, Organomegaly, Rebound Additional comments: epigastric and LUQ tenderness to palpation - Extremities Exam Extremities Exam: Full ROM. absent: Pedal Edema - Neurological Exam Neurological Exam: Alert, Awake - Psychiatric Exam Psychiatric exam: Normal Affect, Normal Mood - Skin Skin Exam: Dry, Intact, Normal Color, Warm Assessment and Plan - Assessment and Plan (Free Text) Assessment: 31 year old female with history of Diabetes, ESRD on HD MWF, chronic anemia 2/2 kidney disease, PUD 04/2016, biliary erosive Gastritis, Gastroparesis, and esophageal candidiasis presenting with intractable vomiting. Multiple prior EGDs with PUD (2013,2015), biliary/erosive/ nodular Gastritis (2014), LAGC esophagitis (2015), duodenitis (2013), and esophageal candidiasis (2014). No prior colonoscopy. Recent EGD 01/2017 during [facility] stay endorsed to be normal. Plan: >mutlifactorial: Gastroparesis, uremic vomiting, uncontrolled diabetes >clear liquids, advance as tolerated, Ensure clear supplement >counselled on small frequent meals >Miralax daily >supportive care: IVFs, anti-emetics, PPI >avoid narcotics >pending A1c >will follow clinical course <Gunnar Timmons - Last Filed: 02/18/17 11:01> Objective - Vital Signs/Intake and Output Vital Signs (last 24 hours): Temp Pulse Resp BP Pulse Ox 98 F 103 H 20 128/78 100 02/17/17 17:25 02/17/17 19:52 02/17/17 19:52 02/17/17 19:52 02/17/17 17:25 Intake and Output: 02/18/17 02/18/17 06:59 18:59 Intake Total 320 Balance 320 - Medications Medications: Current Medications Calcium Acetate (Phoslo) 667 mg PO TID [facility] Last Admin: 02/18/17 10:24 Dose: Not Given Clonidine HCl (Catapres-Tts3 0.3 Mg/24 Hr) 1 patch TD Q7D@1000 [facility] Diphenhydramine HCl (Benadryl) 50 mg IVP Q3 PRN PRN Reason: Itching / Pruritus Last Admin: 02/18/17 08:21 Dose: 50 mg Docusate Sodium (Colace) 100 mg PO TID [facility] Last Admin: 02/18/17 10:25 Dose: Not Given Epoetin James (Procrit) 20,000 unit IV MWF [facility] Stop: 02/21/17 09:01 Last Admin: 02/16/17 20:03 Dose: 20,000 unit Heparin Sodium (Porcine) (Heparin) 5,000 units SC Q12 [facility] Last Admin: 02/18/17 10:20 Dose: Not Given Hydromorphone HCl (Dilaudid) 2 mg IVP Q3 PRN PRN Reason: Pain, severe (8-10) Stop: 02/18/17 19:01 Last Admin: 02/18/17 08:18 Dose: 2 mg Insulin Aspart (Novolog) 6 unit SC AC [facility] Last Admin: 02/18/17 08:12 Dose: 6 unit Insulin Aspart (Novolog) 0 unit SC ACHS [facility] PRN Reason: Protocol Last Admin: 02/18/17 10:26 Dose: Not Given Insulin Detemir (Levemir) 12 unit SC Q12 [facility] Last Admin: 02/18/17 10:19 Dose: 12 unit Metoclopramide HCl (Reglan) 10 mg PO DAILY [facility] Last Admin: 02/18/17 10:25 Dose: Not Given Nifedipine (Procardia Xl) 60 mg PO BID [facility] Last Admin: 02/18/17 10:23 Dose: 60 mg Ondansetron HCl (Zofran Inj) 4 mg IVP Q4H PRN PRN Reason: Nausea/Vomiting Pantoprazole Sodium (Protonix Ec Tab) 40 mg PO DAILY [facility] Last Admin: 02/18/17 10:25 Dose: Not Given Polyethylene Glycol (Miralax) 17 gm PO DAILY [facility] Last Admin: 02/18/17 10:25 Dose: Not Given Trimethobenzamide HCl (Tigan) 200 mg IM Q6 PRN PRN Reason: Nausea/Vomiting - Labs Labs: 02/17/17 07:53 02/17/17 07:53 PT 13.3 SECONDS (9.7-12.2) H 02/17/17 07:53 INR 1.2 02/17/17 07:53 Attending/Attestation - Attestation I have personally seen and examined this patient.: Yes I have fully participated in the care of the patient.: Yes I have reviewed all pertinent clinical information, including history, physical exam and plan: Yes Notes (Text): 02/18/17 11:00 31 year old female with history of DM, ESRD on HD, anemia, PUD, erosive Gastritis, Gastroparesis, and esophageal candidiasis presenting with intractable vomiting. 1. Gastroparesis 2. History of PUD Plan: -liquid diet and advance as tolerated -small frequent meals / low fat -continue PPI -reglan daily currently -bowel regimen with miralax -minimize narcotics -ensure supplements
[2017-02-18] MEDS: Insulin Detemir 100 units/ml Vial (Levemir) SC SCH ×2 (10:19→23:00)
[2017-02-18] MEDS: NIFEdipine 60 mg ER Tab PO SCH ×2 (10:23→21:02)
[2017-02-18] MEDS: POLYETHYLENE GLYCOL 3350 17 GM/Dose PACKET PO SCH (10:25)
[2017-02-18] MEDS: Pantoprazole 40 mg EC Tab PO SCH (10:25)
--- NOTE | 2017-02-18 16:11 | CP.PCM.CON ---
History of Present Illness - History of Present Illness History of Present Illness: 31 year old female presenting with vomiting. Patient accounts over fifteen episodes of bilious vomiting prior to dialysis yesterday leading to EER presentation after attempting to present to outpatient dialysis. Admits to recent discharge after two month stay at [facility] for left chest wall osteomyelitis. Notes vomiting at [facility] controlled with Tigan administration. . PMH - Diabetes, ESRD on HD MWF, chronic anemia 2/2 kidney disease, PUD 04/2016, biliary erosive Gastritis, Gastroparesis 2001, and esophageal candidiasis presenting with vomiting. Endocarditis, OM clavicle Family- Mother- Diabetes, Paternal aunt- stomach cancer diagnosed at 60 years of age Social- denies tobacco, alcohol, illicit drug use Surgery- cholecystectomy 2010, abdominal abscess "between pancreas and stomach" 2001, left chest wall debridement 2016 Review of Systems - Constitutional Constitutional: As Per HPI, Anorexia, Fatigue, Fever - EENT Eyes: As Per HPI Nose/Mouth/Throat: As Per HPI - Breasts Breasts: absent: As Per HPI, Change in Shape, Mass, Pain, Nipple Discharge, Nipple Inversion, Skin Changes, Swelling, Other - Cardiovascular Cardiovascular: absent: As Per HPI, Acrocyanosis, Chest Pain, Chest Pain at Rest , Chest Pain with Activity, Claudication, Diaphoresis, Dyspnea, Dyspnea on Exertion, Edema, Irregular Heart Rhythm, Pain Radiating to Arm/Neck/Jaw, Leg Edema, Leg Ulcers, Lightheadedness, Orthopnea, Palpitations, Paroxysmal Nocturnal Dyspnea, Pedal Edema, Radiating Pain, Rapid Heart Rate, Slow Heart Rate, Syncope, Other - Respiratory Respiratory: absent: As Per HPI, Cough, Dyspnea, Hemoptysis, Dyspnea on Exertion , Wheezing, Snoring, Stridor, Pain on Inspiration, Chest Congestion, Excessive Mucous Production, Change in Mucous Color, Pain with Coughing, Other - Gastrointestinal Gastrointestinal: As Per HPI, Vomiting - Genitourinary Genitourinary: absent: As Per HPI, Change in Urinary Stream, Difficulty Urinating, Dysuria, Flank Pain, Hematuria, Pyuria, Nocturia, Urinary Incontinence, Urinary Frequency, Urinary Hesitance, Urinary Urgency, Voiding Freq/Small Amts, Freq UTI, Hx Renal/Bladder Calculi, Hx /Renal Surgery, Bladder Distension, Other - Reproductive: Female Reproductive:Female: absent: As Per HPI, Amenorrhea, Amenorrhea/ Control, Currently Menstual, Cycle <21 Days, Cycle >35 Days, Cycle Variable, Menses 1-7 Days, Menses >/= 8 Days, Menses Variable, Cycle > 4 Weeks Between, No Menses for 6 Months, Heavy Menses, Light Menses, Normal Menses, Spotting Between Cycles , S/P Hysterectomy, Menopausal, Post Menopausal, Premenarche, Abnormal Vaginal Bleeding, Dysmenorrhea, Dyspareunia, Genital Lesions, Genital Pruritis, Pelvic Pain, Prolapse Symptoms, Sexual Dysfunction, Vaginal Discharge, Vaginal Dryness , Vaginal Odor, Vaginal Pruritis, Other - Menstruation Menstruation: absent: As Per HPI, Amenorrhea, Amenorrhea/ Control, Currently Menstual, Cycle <21 Days, Cycle >35 Days, Cycle Variable, Menses 1-7 Days, Menses >/= 8 Days, Menses Variable, Cycle > 4 Weeks Between, No Menses for 6 Months, Heavy Menses, Light Menses, Normal Menses, Spotting Between Cycles , S/P Hysterectomy, Menopausal, Post Menopausal, Premenarche, Abnormal Vaginal Bleeding, Dysmenorrhea, Other - Musculoskeletal Musculoskeletal: As Per HPI - Integumentary Integumentary: As Per HPI - Neurological Neurological: absent: As Per HPI, Abnormal Gait, Abnormal Hearing, Abnormal Movements, Abnormal Speech, Behavioral Changes, Burning Sensations, Confusion, Convulsions, Disequilibrium, Dizziness, Numbness, Focal Weakness, Frequent Falls , Headaches, Lack of Coordination, Loss of Vision, Memory Loss, Paresthesias, Radicular Pain, Restless Legs, Sensory Deficit, Syncope, Tingling, Tremor, Vertigo, Weakness, Other Visual Disturbances, Other - Psychiatric Psychiatric: absent: As Per HPI, Abnormal Sleep Pattern, Anhedonia, Anxiety, Auditory Hallucinations, Behavioral Changes, Change in Appetite, Change in Libido, Confusion, Depression, Difficulty Concentrating, Hallucinations, Homicidal Ideation, Hopelessness, Irritability, Memory Loss, Mood Swings, Panic Attacks, Paranoia, Suicidal Ideation, Visual Hallucinations, Tactile Hallucinations, Other - Endocrine Endocrine: absent: As Per HPI, Change in Body Appearance, Change in Libido, Cold Intolorance, Deepening of Voice, Excessive Sweating, Fatigue, Flushing, Heat Intolorance, Increase in Ring/Shoe/Hat Size, Palpitations, Polydipsia, Polyphagia, Polyuria, Other - Hematologic/Lymphatic Hematologic: absent: As Per HPI, Easy Bleeding, Easy Bruising, Lymphadenopathy, Other Past Patient History - Infectious Disease Hx of Infectious Diseases: None - Tetanus Immunizations Tetanus Immunization: Unknown - Past Medical History & Family History Past Medical History?: Yes - Past Social History Smoking Status: Never Smoked - CARDIAC Hx Cardiac Disorders: Yes Hx Congestive Heart Failure: Yes ([place]) Hx Hypercholesterolemia: Yes Hx Hypertension: Yes Hx Peripheral Edema: Yes - PULMONARY Hx Respiratory Disorders: No - NEUROLOGICAL Hx Neurological Disorder: Yes Hx Seizures: Yes - HEENT Hx HEENT Problems: Yes Hx Cataracts: Yes Hx Glaucoma: Yes - RENAL Hx Chronic Kidney Disease: Yes Hx Dialysis: Yes Type of Dialysis Access: la av shunt Date of Last Dialysis Treatment: 02/16/17 Hx Kidney Stones: Yes Hx Renal Failure: Yes - ENDOCRINE/METABOLIC Hx Endocrine Disorders: Yes Hx Diabetes Mellitus Type 1: Yes Hx Hyperthyroidism: Yes Hx Hypothyroidism: Yes - HEMATOLOGICAL/ONCOLOGICAL Hx Blood Disorders: Yes Hx Anemia: Yes - INTEGUMENTARY Hx Dermatological Problems: Yes Other/Comment: DRY ITCHY SKIN ;multiple/generalized dark spots on skin - MUSCULOSKELETAL/RHEUMATOLOGICAL Hx Musculoskeletal Disorders: Yes Hx Falls: No Hx Fractures: Yes (Sep 2012 L foot) - GASTROINTESTINAL Hx Gastrointestinal Disorders: Yes Hx Gall Bladder Disease: Yes (gallbladder removed) Hx Gastritis: Yes Hx Pancreatitis: Yes (chronic) - GENITOURINARY/GYNECOLOGICAL Hx Genitourinary Disorders: No - PSYCHIATRIC Hx Psychophysiologic Disorder: Yes Hx Anxiety: Yes Hx Substance Use: No - SURGICAL HISTORY Hx Surgeries: Yes Hx Cholecystectomy: Yes Hx Coronary Stent: Yes - ANESTHESIA Hx Anesthesia: Yes Hx Anesthesia Reactions: No Hx Malignant Hyperthermia: No Has any member of the family had a problem w/ anesthesia?: No Meds Allergies/Adverse Reactions: Allergies Allergy/AdvReac Type Severity Reaction Status Date / Time ketorolac tromethamine Allergy RASH Verified 02/16/17 14:57 [From Toradol] latex Allergy RASH Verified 02/16/17 14:57 morphine Allergy RASH Verified 02/16/17 14:57 tramadol Allergy RASH Verified 02/16/17 14:57 - Medications Medications: Current Medications Calcium Acetate (Phoslo) 667 mg PO TID [facility] Last Admin: 02/18/17 13:10 Dose: Not Given Clonidine HCl (Catapres-Tts3 0.3 Mg/24 Hr) 1 patch TD Q7D@1000 [facility] Diphenhydramine HCl (Benadryl) 50 mg IVP Q3 PRN PRN Reason: Itching / Pruritus Last Admin: 02/18/17 14:32 Dose: 50 mg Docusate Sodium (Colace) 100 mg PO TID [facility] Last Admin: 02/18/17 13:10 Dose: Not Given Epoetin James (Procrit) 20,000 unit IV MWF [facility] Stop: 02/21/17 09:01 Last Admin: 02/16/17 20:03 Dose: 20,000 unit Heparin Sodium (Porcine) (Heparin) 5,000 units SC Q12 [facility] Last Admin: 02/18/17 10:20 Dose: Not Given Hydromorphone HCl (Dilaudid) 2 mg IVP Q3 PRN PRN Reason: Pain, severe (8-10) Stop: 02/18/17 19:01 Last Admin: 02/18/17 14:27 Dose: 2 mg Insulin Aspart (Novolog) 6 unit SC AC [facility] Last Admin: 02/18/17 12:14 Dose: Not Given Insulin Aspart (Novolog) 0 unit SC ACHS [facility] PRN Reason: Protocol Last Admin: 02/18/17 12:14 Dose: Not Given Insulin Detemir (Levemir) 12 unit SC Q12 [facility] Last Admin: 02/18/17 10:19 Dose: 12 unit Metoclopramide HCl (Reglan) 10 mg PO DAILY [facility] Last Admin: 02/18/17 10:25 Dose: Not Given Nifedipine (Procardia Xl) 60 mg PO BID [facility] Last Admin: 02/18/17 10:23 Dose: 60 mg Ondansetron HCl (Zofran Inj) 4 mg IVP Q4H PRN PRN Reason: Nausea/Vomiting Pantoprazole Sodium (Protonix Ec Tab) 40 mg PO DAILY [facility] Last Admin: 02/18/17 10:25 Dose: Not Given Polyethylene Glycol (Miralax) 17 gm PO DAILY [facility] Last Admin: 02/18/17 10:25 Dose: Not Given Trimethobenzamide HCl (Tigan) 200 mg IM Q6 PRN PRN Reason: Nausea/Vomiting Physical Exam - Constitutional Appears: Non-toxic, Chronically Ill - Head Exam Head Exam: NORMOCEPHALIC - Eye Exam Eye Exam: PERRL. absent: Scleral icterus - ENT Exam ENT Exam: Mucous Membranes Dry, Normal External Ear Exam - Neck Exam Neck exam: Negative for: Lymphadenopathy, Thyromegaly - Respiratory Exam Respiratory Exam: Decreased Breath Sounds, Clear to Auscultation Bilateral - Cardiovascular Exam Cardiovascular Exam: REGULAR RHYTHM, +S1, +S2 - GI/Abdominal Exam GI & Abdominal Exam: Diminished Bowel Sounds, Soft. absent: Tenderness - Rectal Exam Rectal Exam: Deferred - Exam Exam: NORMAL INSPECTION - Extremities Exam Extremities exam: Positive for: pedal pulses present. Negative for: calf tenderness, pedal edema, tenderness - Back Exam Back exam: absent: CVA tenderness (L), CVA tenderness (R) - Neurological Exam Neurological exam: Alert, CN II-XII Intact, Oriented x3, Reflexes Normal - Psychiatric Exam Psychiatric exam: Normal Mood - Skin Skin Exam: Dry Additional comments: wound healing over clavicle Results - Vital Signs Recent Vital Signs: Last Vital Signs Temp 98 F 02/17/17 17:25 Pulse 103 H 02/17/17 19:52 Resp 20 02/17/17 19:52 BP 128/78 02/17/17 19:52 Pulse Ox 100 02/17/17 17:25 - Labs Result Diagrams: 02/17/17 07:53 02/17/17 07:53 Labs: Laboratory Results - last 24 hr 02/17/17 02/17/17 02/17/17 07:18 16:28 21:18 POC Glucose (mg/dL) 120 H 419 H* Hemoglobin A1c 6.5 02/18/17 02/18/17 02/18/17 03:00 06:21 12:05 POC Glucose (mg/dL) 265 H 227 H 87 Hemoglobin A1c Assessment & Plan - Assessment and Plan (Free Text) Assessment: hx of bacteremia/ sepsis/ endocarditis and OM of clavicle treated with IV antibiotics await cultures
--- NOTE | 2017-02-18 20:59 | CP.PCM.PN ---
Subjective - Date & Time of Evaluation Date of Evaluation: 02/18/17 Time of Evaluation: 10:40 - Subjective Subjective: clinically same Objective - Vital Signs/Intake and Output Vital Signs (last 24 hours): Temp Pulse Resp BP Pulse Ox 97.4 F L 94 H 20 177/77 H 98 02/18/17 16:00 02/18/17 16:00 02/18/17 16:00 02/18/17 16:00 02/18/17 16:00 Intake and Output: 02/18/17 02/19/17 18:59 06:59 Intake Total 480 Balance 480 - Medications Medications: Current Medications Calcium Acetate (Phoslo) 667 mg PO TID [facility] Last Admin: 02/18/17 17:34 Dose: Not Given Clonidine HCl (Catapres-Tts3 0.3 Mg/24 Hr) 1 patch TD Q7D@1000 [facility] Diphenhydramine HCl (Benadryl) 50 mg IVP Q3 PRN PRN Reason: Itching / Pruritus Last Admin: 02/18/17 17:58 Dose: 50 mg Docusate Sodium (Colace) 100 mg PO TID [facility] Last Admin: 02/18/17 17:34 Dose: Not Given Epoetin James (Procrit) 20,000 unit IV MWF [facility] Stop: 02/21/17 09:01 Last Admin: 02/16/17 20:03 Dose: 20,000 unit Heparin Sodium (Porcine) (Heparin) 5,000 units SC Q12 [facility] Last Admin: 02/18/17 10:20 Dose: Not Given Insulin Aspart (Novolog) 6 unit SC AC [facility] Last Admin: 02/18/17 17:30 Dose: Not Given Insulin Aspart (Novolog) 0 unit SC ACHS [facility] PRN Reason: Protocol Last Admin: 02/18/17 17:31 Dose: Not Given Insulin Detemir (Levemir) 12 unit SC Q12 [facility] Last Admin: 02/18/17 10:19 Dose: 12 unit Metoclopramide HCl (Reglan) 10 mg PO DAILY [facility] Last Admin: 02/18/17 10:25 Dose: Not Given Nifedipine (Procardia Xl) 60 mg PO BID [facility] Last Admin: 02/18/17 10:23 Dose: 60 mg Ondansetron HCl (Zofran Inj) 4 mg IVP Q4H PRN PRN Reason: Nausea/Vomiting Pantoprazole Sodium (Protonix Ec Tab) 40 mg PO DAILY [facility] Last Admin: 02/18/17 10:25 Dose: Not Given Polyethylene Glycol (Miralax) 17 gm PO DAILY [facility] Last Admin: 02/18/17 10:25 Dose: Not Given Trimethobenzamide HCl (Tigan) 200 mg IM Q6 PRN PRN Reason: Nausea/Vomiting - Labs Labs: 02/17/17 07:53 02/17/17 07:53 PT 13.3 SECONDS (9.7-12.2) H 02/17/17 07:53 INR 1.2 02/17/17 07:53 - Constitutional Appears: Well - Head Exam Head Exam: ATRAUMATIC, NORMAL INSPECTION, NORMOCEPHALIC - Eye Exam Eye Exam: EOMI, Normal appearance, PERRL Pupil Exam: NORMAL ACCOMODATION, PERRL - ENT Exam ENT Exam: Mucous Membranes Moist, Normal Exam - Neck Exam Neck Exam: Full ROM, Normal Inspection. absent: Lymphadenopathy - Respiratory Exam Respiratory Exam: Decreased Breath Sounds - Cardiovascular Exam Cardiovascular Exam: REGULAR RHYTHM, +S1, +S2 - GI/Abdominal Exam GI & Abdominal Exam: Soft, Diminished Bowel Sounds - Rectal Exam Rectal Exam: Deferred
[2017-02-18] MEDS: Trimethobenzamide 200 mg/2 mL Inj IM PRN (23:40)
[2017-02-19] MEDS: DiphenhydrAMINE 50 mg/ml Inj IVP PRN ×7 (01:55→21:13)
[2017-02-19] MEDS: Trimethobenzamide 200 mg/2 mL Inj IM PRN (06:12)
[2017-02-19] MEDS: (Novolog) Insulin Aspart, Recombinant 100 u/ml 10 ml vial SC SCH ×7 (07:30→21:44)
[2017-02-19 08:21] LABS: HEPATITIS B SURFACE AG NEGATIVE (NEGATIVE)
[2017-02-19 08:26] LABS: HEPATITIS A IGM NEGATIVE (NEGATIVE)
[2017-02-19 08:27] LABS: HEPATITIS B CORE AB NEGATIVE (NEGATIVE)
[2017-02-19 08:36] LABS: HEPATITIS C ANTIBODY NEGATIVE (NEGATIVE)
[2017-02-19] MEDS: POLYETHYLENE GLYCOL 3350 17 GM/Dose PACKET PO SCH (10:40)
[2017-02-19] MEDS: Insulin Detemir 100 units/ml Vial (Levemir) SC SCH ×3 (10:42→21:57)
[2017-02-19] MEDS: NIFEdipine 60 mg ER Tab PO SCH ×2 (10:43→21:09)
[2017-02-19] MEDS: Pantoprazole 40 mg EC Tab PO SCH (10:44)
--- NOTE | 2017-02-19 11:32 | CP.PCM.PN ---
<Mariana Gomes - Last Filed: 02/19/17 11:38> Subjective - Date & Time of Evaluation Date of Evaluation: 02/19/17 Time of Evaluation: 07:00 - Subjective Subjective: GI Fellow PGY4 Progress Note Pt seen and evaluated at bedside. Pt appears to be very uncomfortable and complaining of nausea and vomiting, unable to tolerate liquids, with clear emesis. Pt refusing Reglan overnight since reports it does not help, only Tigan helps her. Pt dneeis fevers, chills, hemetemesis, melena, or hematochezia. Pt reports moderate diffuse abdominal pain. ROS: A 12pt ROS was obtained and was negative except for as mentioned above. Objective - Vital Signs/Intake and Output Vital Signs (last 24 hours): Temp Pulse Resp BP Pulse Ox 97.4 F L 94 H 20 177/77 H 100 02/18/17 16:00 02/18/17 16:00 02/18/17 16:00 02/18/17 16:00 02/18/17 21:17 - Medications Medications: Current Medications Calcium Acetate (Phoslo) 667 mg PO TID [facility] Last Admin: 02/19/17 10:43 Dose: Not Given Clonidine HCl (Catapres-Tts3 0.3 Mg/24 Hr) 1 patch TD Q7D@1000 [facility] Diphenhydramine HCl (Benadryl) 50 mg IVP Q3 PRN PRN Reason: Itching / Pruritus Last Admin: 02/19/17 10:39 Dose: 50 mg Docusate Sodium (Colace) 100 mg PO TID [facility] Last Admin: 02/19/17 10:32 Dose: Not Given Epoetin James (Procrit) 20,000 unit IV MWF [facility] Stop: 02/21/17 09:01 Last Admin: 02/16/17 20:03 Dose: 20,000 unit Heparin Sodium (Porcine) (Heparin) 5,000 units SC Q12 [facility] Last Admin: 02/19/17 10:35 Dose: 5,000 units Hydromorphone HCl (Dilaudid) 2 mg IVP Q3 PRN PRN Reason: Pain, severe (8-10) Last Admin: 02/19/17 10:28 Dose: 2 mg Insulin Aspart (Novolog) 6 unit SC [facility] Last Admin: 02/19/17 08:00 Dose: Not Given Insulin Aspart (Novolog) 0 unit SC ACHS [facility] PRN Reason: Protocol Last Admin: 02/19/17 07:30 Dose: Not Given Insulin Detemir (Levemir) 12 unit SC Q12 [facility] Last Admin: 02/19/17 10:42 Dose: Not Given Metoclopramide HCl (Reglan) 10 mg PO DAILY [facility] Last Admin: 02/19/17 10:44 Dose: Not Given Nifedipine (Procardia Xl) 60 mg PO BID [facility] Last Admin: 02/19/17 10:43 Dose: Not Given Ondansetron HCl (Zofran Inj) 4 mg IVP Q4H PRN PRN Reason: Nausea/Vomiting Pantoprazole Sodium (Protonix Ec Tab) 40 mg PO DAILY [facility] Last Admin: 02/19/17 10:44 Dose: Not Given Polyethylene Glycol (Miralax) 17 gm PO DAILY [facility] Last Admin: 02/19/17 10:40 Dose: Not Given Trimethobenzamide HCl (Tigan) 200 mg IM Q6 PRN PRN Reason: Nausea/Vomiting Last Admin: 02/19/17 06:12 Dose: 200 mg - Labs Labs: 02/17/17 07:53 02/17/17 07:53 PT 13.3 SECONDS (9.7-12.2) H 02/17/17 07:53 INR 1.2 02/17/17 07:53 - Constitutional Appears: In Acute Distress, Chronically Ill - Head Exam Head Exam: ATRAUMATIC, NORMAL INSPECTION, NORMOCEPHALIC - Eye Exam Eye Exam: EOMI, PERRL - ENT Exam ENT Exam: Mucous Membranes Moist - Neck Exam Neck Exam: Full ROM, Normal Inspection - Respiratory Exam Respiratory Exam: Clear to Ausculation Bilateral, NORMAL BREATHING PATTERN - Cardiovascular Exam Cardiovascular Exam: Tachycardia, +S1, +S2 - GI/Abdominal Exam GI & Abdominal Exam: Soft, Tenderness, Normal Bowel Sounds - Rectal Exam Rectal Exam: Deferred - Extremities Exam Extremities Exam: Full ROM - Neurological Exam Neurological Exam: Alert, Oriented x3 - Psychiatric Exam Psychiatric exam: Agitated, Anxious - Skin Skin Exam: Abrasion, Dry, Mottled, Warm Assessment and Plan - Assessment and Plan (Free Text) Assessment: 31 year old female with history of Diabetes, ESRD on HD MWF, chronic anemia 2/2 kidney disease, PUD 04/2016, biliary erosive gastritis, gastroparesis, and esophageal candidiasis presenting with intractable vomiting. Multiple prior EGDs with PUD (2013,2015), biliary/erosive/ nodular Gastritis (2014), LAGC esophagitis (2015), duodenitis (2013), and esophageal candidiasis (2014). No prior colonoscopy. Recent EGD 01/[address] [facility] stay endorsed to be normal. 1. Gastroparesis 2. Intractable vomiting 3. Hx PUD 4. Hx Esophagitis 5. Hx Gastritis Plan: Gastroparesis- continue supportive care with Tigan and encourage pro-kinetic reglan. -liquid diet and advance as tolerated -small frequent meals / low fat -continue PPI -bowel regimen with miralax -minimize narcotics -ensure supplements <Rebeca Avendaño MD - Last Filed: 02/19/17 14:12> Objective - Vital Signs/Intake and Output Vital Signs (last 24 hours): Temp Pulse Resp BP Pulse Ox 97.4 F L 94 H 20 177/77 H 100 02/18/17 16:00 02/18/17 16:00 02/18/17 16:00 02/18/17 16:00 02/18/17 21:17 - Medications Medications: Current Medications Calcium Acetate (Phoslo) 667 mg PO TID [facility] Last Admin: 02/19/17 14:07 Dose: Not Given Clonidine HCl (Catapres-Tts3 0.3 Mg/24 Hr) 1 patch TD Q7D@1000 [facility] Diphenhydramine HCl (Benadryl) 50 mg IVP Q3 PRN PRN Reason: Itching / Pruritus Last Admin: 02/19/17 10:39 Dose: 50 mg Docusate Sodium (Colace) 100 mg PO TID [facility] Last Admin: 02/19/17 14:06 Dose: Not Given Epoetin James (Procrit) 20,000 unit IV MWF [facility] Stop: 02/21/17 09:01 Last Admin: 02/16/17 20:03 Dose: 20,000 unit Heparin Sodium (Porcine) (Heparin) 5,000 units SC Q12 [facility] Last Admin: 02/19/17 10:35 Dose: 5,000 units Hydromorphone HCl (Dilaudid) 2 mg IVP Q3 PRN PRN Reason: Pain, severe (8-10) Last Admin: 02/19/17 10:28 Dose: 2 mg Insulin Aspart (Novolog) 6 unit SC AC [facility] Last Admin: 02/19/17 12:00 Dose: Not Given Insulin Aspart (Novolog) 0 unit SC ACHS [facility] PRN Reason: Protocol Last Admin: 02/19/17 11:30 Dose: Not Given Insulin Detemir (Levemir) 12 unit SC Q12 [facility] Last Admin: 02/19/17 10:42 Dose: Not Given Metoclopramide HCl (Reglan) 10 mg PO DAILY [facility] Last Admin: 02/19/17 10:44 Dose: Not Given Nifedipine (Procardia Xl) 60 mg PO BID [facility] Last Admin: 02/19/17 10:43 Dose: Not Given Ondansetron HCl (Zofran Inj) 4 mg IVP Q4H PRN PRN Reason: Nausea/Vomiting Pantoprazole Sodium (Protonix Ec Tab) 40 mg PO DAILY [facility] Last Admin: 02/19/17 10:44 Dose: Not Given Polyethylene Glycol (Miralax) 17 gm PO DAILY [facility] Last Admin: 02/19/17 10:40 Dose: Not Given Trimethobenzamide HCl (Tigan) 200 mg IM Q6 PRN PRN Reason: Nausea/Vomiting Last Admin: 02/19/17 06:12 Dose: 200 mg - Labs Labs: PT 13.3 SECONDS (9.7-12.2) H 02/17/17 07:53 INR 1.2 02/17/17 07:53 Attending/Attestation - Attestation I have personally seen and examined this patient.: Yes I have fully participated in the care of the patient.: Yes I have reviewed all pertinent clinical information, including history, physical exam and plan: Yes Notes (Text): 02/19/17 14:10 Patient seen on Gi rounds this am. Agree with assessment and plan with following exceptions and additions. This is a 31 year old female with history of DM, ESRD on HD, anemia, PUD, erosive Gastritis, Gastroparesis, and esophageal candidiasis presenting with intractable vomiting and history of PUD. Able to tolerate liquid diet- will advance to full liquid. Small frequent meals. Continue PPi and reglan. Continue miralax for bowel regimen. Avoid narcotics and opioids
--- NOTE | 2017-02-19 12:13 | CP.PCM.PN ---
Subjective - Date & Time of Evaluation Date of Evaluation: 02/19/17 Time of Evaluation: 08:00 - Subjective Subjective: afeb await cultures hx mrsa endocarditis/ OM Objective - Vital Signs/Intake and Output Vital Signs (last 24 hours): Temp Pulse Resp BP Pulse Ox 97.4 F L 94 H 20 177/77 H 100 02/18/17 16:00 02/18/17 16:00 02/18/17 16:00 02/18/17 16:00 02/18/17 21:17 - Medications Medications: Current Medications Calcium Acetate (Phoslo) 667 mg PO TID [facility] Last Admin: 02/19/17 10:43 Dose: Not Given Clonidine HCl (Catapres-Tts3 0.3 Mg/24 Hr) 1 patch TD Q7D@1000 [facility] Diphenhydramine HCl (Benadryl) 50 mg IVP Q3 PRN PRN Reason: Itching / Pruritus Last Admin: 02/19/17 10:39 Dose: 50 mg Docusate Sodium (Colace) 100 mg PO TID [facility] Last Admin: 02/19/17 10:32 Dose: Not Given Epoetin James (Procrit) 20,000 unit IV MWF [facility] Stop: 02/21/17 09:01 Last Admin: 02/16/17 20:03 Dose: 20,000 unit Heparin Sodium (Porcine) (Heparin) 5,000 units SC Q12 [facility] Last Admin: 02/19/17 10:35 Dose: 5,000 units Hydromorphone HCl (Dilaudid) 2 mg IVP Q3 PRN PRN Reason: Pain, severe (8-10) Last Admin: 02/19/17 10:28 Dose: 2 mg Insulin Aspart (Novolog) 6 unit SC AC [facility] Last Admin: 02/19/17 08:00 Dose: Not Given Insulin Aspart (Novolog) 0 unit SC ACHS [facility] PRN Reason: Protocol Last Admin: 02/19/17 07:30 Dose: Not Given Insulin Detemir (Levemir) 12 unit SC Q12 [facility] Last Admin: 02/19/17 10:42 Dose: Not Given Metoclopramide HCl (Reglan) 10 mg PO DAILY [facility] Last Admin: 02/19/17 10:44 Dose: Not Given Nifedipine (Procardia Xl) 60 mg PO BID [facility] Last Admin: 02/19/17 10:43 Dose: Not Given Ondansetron HCl (Zofran Inj) 4 mg IVP Q4H PRN PRN Reason: Nausea/Vomiting Pantoprazole Sodium (Protonix Ec Tab) 40 mg PO DAILY [facility] Last Admin: 02/19/17 10:44 Dose: Not Given Polyethylene Glycol (Miralax) 17 gm PO DAILY [facility] Last Admin: 02/19/17 10:40 Dose: Not Given Trimethobenzamide HCl (Tigan) 200 mg IM Q6 PRN PRN Reason: Nausea/Vomiting Last Admin: 02/19/17 06:12 Dose: 200 mg - Labs Labs: PT 13.3 SECONDS (9.7-12.2) H 02/17/17 07:53 INR 1.2 02/17/17 07:53 - Constitutional Appears: Non-toxic, Chronically Ill - Head Exam Head Exam: NORMOCEPHALIC - ENT Exam ENT Exam: Mucous Membranes Dry, Normal External Ear Exam - Neck Exam Neck Exam: absent: Lymphadenopathy - Respiratory Exam Respiratory Exam: Decreased Breath Sounds, Clear to Ausculation Bilateral - Cardiovascular Exam Cardiovascular Exam: REGULAR RHYTHM Assessment and Plan - Assessment and Plan (Free Text) Plan: cont rx
--- NOTE | 2017-02-19 14:58 | CP.PCM.PN ---
Subjective - Date & Time of Evaluation Date of Evaluation: 02/19/17 Time of Evaluation: 12:00 - Subjective Subjective: clinically same Objective - Vital Signs/Intake and Output Vital Signs (last 24 hours): Temp Pulse Resp BP Pulse Ox 97.4 F L 94 H 20 177/77 H 100 02/18/17 16:00 02/18/17 16:00 02/18/17 16:00 02/18/17 16:00 02/18/17 21:17 - Medications Medications: Current Medications Calcium Acetate (Phoslo) 667 mg PO TID [facility] Last Admin: 02/19/17 14:07 Dose: Not Given Clonidine HCl (Catapres-Tts3 0.3 Mg/24 Hr) 1 patch TD Q7D@1000 [facility] Diphenhydramine HCl (Benadryl) 50 mg IVP Q3 PRN PRN Reason: Itching / Pruritus Last Admin: 02/19/17 10:39 Dose: 50 mg Docusate Sodium (Colace) 100 mg PO TID [facility] Last Admin: 02/19/17 14:06 Dose: Not Given Epoetin James (Procrit) 20,000 unit IV MWF [facility] Stop: 02/21/17 09:01 Last Admin: 02/16/17 20:03 Dose: 20,000 unit Heparin Sodium (Porcine) (Heparin) 5,000 units SC Q12 [facility] Last Admin: 02/19/17 10:35 Dose: 5,000 units Hydromorphone HCl (Dilaudid) 2 mg IVP Q3 PRN PRN Reason: Pain, severe (8-10) Last Admin: 02/19/17 10:28 Dose: 2 mg Insulin Aspart (Novolog) 6 unit SC AC [facility] Last Admin: 02/19/17 12:00 Dose: Not Given Insulin Aspart (Novolog) 0 unit SC ACHS [facility] PRN Reason: Protocol Last Admin: 02/19/17 11:30 Dose: Not Given Insulin Detemir (Levemir) 12 unit SC Q12 [facility] Last Admin: 02/19/17 10:42 Dose: Not Given Metoclopramide HCl (Reglan) 10 mg PO DAILY [facility] Last Admin: 02/19/17 10:44 Dose: Not Given Nifedipine (Procardia Xl) 60 mg PO BID [facility] Last Admin: 02/19/17 10:43 Dose: Not Given Ondansetron HCl (Zofran Inj) 4 mg IVP Q4H PRN PRN Reason: Nausea/Vomiting Pantoprazole Sodium (Protonix Ec Tab) 40 mg PO DAILY [facility] Last Admin: 02/19/17 10:44 Dose: Not Given Polyethylene Glycol (Miralax) 17 gm PO DAILY [facility] Last Admin: 02/19/17 10:40 Dose: Not Given Trimethobenzamide HCl (Tigan) 200 mg IM Q6 PRN PRN Reason: Nausea/Vomiting Last Admin: 02/19/17 06:12 Dose: 200 mg - Labs Labs: PT 13.3 SECONDS (9.7-12.2) H 02/17/17 07:53 INR 1.2 02/17/17 07:53 - Constitutional Appears: Well - Head Exam Head Exam: ATRAUMATIC, NORMAL INSPECTION, NORMOCEPHALIC - Eye Exam Eye Exam: EOMI, Normal appearance, PERRL Pupil Exam: NORMAL ACCOMODATION, PERRL - ENT Exam ENT Exam: Mucous Membranes Moist, Normal Exam - Neck Exam Neck Exam: Full ROM, Normal Inspection. absent: Lymphadenopathy - Respiratory Exam Respiratory Exam: Decreased Breath Sounds - Cardiovascular Exam Cardiovascular Exam: REGULAR RHYTHM, +S1, +S2 - GI/Abdominal Exam GI & Abdominal Exam: Soft, Diminished Bowel Sounds - Rectal Exam Rectal Exam: Deferred
[2017-02-19] MEDS ORDERED: HYDROmorphone 1 mg/ml ISec IVP STA (15:06)
[2017-02-19] MEDS ORDERED: DiphenhydrAMINE 50 mg/ml Inj IVP STA (16:24)
[2017-02-19] MEDS ORDERED: EPOETIN ALFA 10,000 UNIT/ML ML IV SCH (16:30)
[2017-02-19] MEDS: Epoetin Alfa Dialysis 20000 UNIT/ML Inj IV SCH (17:10)
[2017-02-19] MEDS: Ferric Sodium Gluconat Complex 62.5 mg/5 ml Vial IVPB SCH (17:14)
--- NOTE | 2017-02-19 19:53 | CP.PCM.PN ---
Subjective - Date & Time of Evaluation Date of Evaluation: 02/19/17 Time of Evaluation: 15:00 - Subjective Subjective: SEEN ON RENAL F/U SEEN ON HD .. HD ORDERS GIVEN AND D/W HD RN LB SZYMANSKI PAIN AND VOMITING EARLIAR ALL PREVIOUS EMR REVIEWED .. LABS REVIEWED Objective - Vital Signs/Intake and Output Vital Signs (last 24 hours): Temp Pulse Resp BP Pulse Ox 97.8 F 116 H 18 92/68 L 100 02/19/17 18:45 02/19/17 18:45 02/19/17 18:45 02/19/17 18:45 02/19/17 18:45 - Medications Medications: Current Medications Calcium Acetate (Phoslo) 667 mg PO TID [facility] Last Admin: 02/19/17 14:07 Dose: Not Given Clonidine HCl (Catapres-Tts3 0.3 Mg/24 Hr) 1 patch TD Q7D@1000 [facility] Diphenhydramine HCl (Benadryl) 50 mg IVP Q3 PRN PRN Reason: Itching / Pruritus Last Admin: 02/19/17 18:07 Dose: 50 mg Docusate Sodium (Colace) 100 mg PO TID [facility] Last Admin: 02/19/17 14:06 Dose: Not Given Epoetin James (Procrit) 10,000 unit IV MWF [facility] Last Admin: 02/19/17 18:15 Dose: 10,000 unit Ferric Sodium Gluconate Complex (Ferrlecit) 125 mg IVPB MWF [facility] Stop: 02/27/17 14:31 Last Admin: 02/19/17 17:14 Dose: 125 mg Heparin Sodium (Porcine) (Heparin) 5,000 units SC Q12 [facility] Last Admin: 02/19/17 10:35 Dose: 5,000 units Hydromorphone HCl (Dilaudid) 2 mg IVP Q3 PRN PRN Reason: Pain, severe (8-10) Last Admin: 02/19/17 18:05 Dose: 2 mg Insulin Aspart (Novolog) 6 unit SC AC [facility] Last Admin: 02/19/17 19:31 Dose: Not Given Insulin Aspart (Novolog) 0 unit SC ACHS [facility] PRN Reason: Protocol Last Admin: 02/19/17 19:31 Dose: Not Given Insulin Detemir (Levemir) 12 unit SC Q12 [facility] Last Admin: 02/19/17 10:42 Dose: Not Given Metoclopramide HCl (Reglan) 10 mg PO DAILY [facility] Last Admin: 02/19/17 10:44 Dose: Not Given Nifedipine (Procardia Xl) 60 mg PO BID [facility] Last Admin: 02/19/17 10:43 Dose: Not Given Ondansetron HCl (Zofran Inj) 4 mg IVP Q4H PRN PRN Reason: Nausea/Vomiting Last Admin: 02/19/17 14:49 Dose: 4 mg Pantoprazole Sodium (Protonix Ec Tab) 40 mg PO DAILY [facility] Last Admin: 02/19/17 10:44 Dose: Not Given Polyethylene Glycol (Miralax) 17 gm PO DAILY [facility] Last Admin: 02/19/17 10:40 Dose: Not Given Trimethobenzamide HCl (Tigan) 200 mg IM Q6 PRN PRN Reason: Nausea/Vomiting Last Admin: 02/19/17 06:12 Dose: 200 mg - Labs Labs: PT 13.3 SECONDS (9.7-12.2) H 02/17/17 07:53 INR 1.2 02/17/17 07:53 Assessment and Plan - Assessment and Plan (Free Text) Assessment: ESRD ON HD M W F AND SAT ANEMIA OF CKD .. ON EPO 10.000 AND FERRLICIT 125 ON HD MULTIPLE CO MORBIDITIES P : C/O CURRENT CARE C/O PRESENT MANAGEMENT
[2017-02-20] MEDS: Trimethobenzamide 200 mg/2 mL Inj IM PRN ×2 (00:25→12:12)
[2017-02-20] MEDS: DiphenhydrAMINE 50 mg/ml Inj IVP PRN ×8 (01:10→21:29)
[2017-02-20] MEDS: (Novolog) Insulin Aspart, Recombinant 100 u/ml 10 ml vial SC SCH ×7 (08:20→22:58)
[2017-02-20] MEDS: Pantoprazole 40 mg EC Tab PO SCH (09:11)
[2017-02-20] MEDS: POLYETHYLENE GLYCOL 3350 17 GM/Dose PACKET PO SCH ×3 (09:13→17:23)
[2017-02-20] MEDS: Insulin Detemir 100 units/ml Vial (Levemir) SC SCH ×2 (09:13→22:57)
[2017-02-20] MEDS: NIFEdipine 60 mg ER Tab PO SCH ×2 (09:15→18:05)
--- NOTE | 2017-02-20 09:19 | CP.PCM.PN ---
<Mariana Gomes - Last Filed: 02/20/17 09:23> Subjective - Date & Time of Evaluation Date of Evaluation: 02/20/17 Time of Evaluation: 07:00 - Subjective Subjective: GI Fellow PGY4 Progress Note Pt seen and examined at bedside. Pt complaining of abdominal pain, nausea, vomiting with no improvement since admission. Pt reports that only pain medication helps and the last time she vomited clear liquid was early this am. Pt reports not able to keep down her clear liquid diet. Pt reports last BM was Sunday and that she is not passing gas. Denies fevers, chills hemetemesis, melena or hematochezia. ROS: A 12pt ROS was obtained and was negative except as mentioned above. Objective - Vital Signs/Intake and Output Vital Signs (last 24 hours): Temp Pulse Resp BP Pulse Ox 98.2 F 80 20 127/67 100 02/20/17 08:52 02/20/17 08:52 02/20/17 08:52 02/20/17 08:52 02/20/17 08:52 Intake and Output: 02/20/17 02/20/17 06:59 18:59 Intake Total 100 Balance 100 - Medications Medications: Current Medications Calcium Acetate (Phoslo) 667 mg PO TID [facility] Last Admin: 02/19/17 21:08 Dose: Not Given Clonidine HCl (Catapres-Tts3 0.3 Mg/24 Hr) 1 patch TD Q7D@1000 KAREN Diphenhydramine HCl (Benadryl) 50 mg IVP Q3 PRN PRN Reason: Itching / Pruritus Last Admin: 02/20/17 06:09 Dose: 50 mg Docusate Sodium (Colace) 100 mg PO TID [facility] Last Admin: 02/19/17 21:08 Dose: Not Given Epoetin James (Procrit) 10,000 unit [place] [facility] [place] Last Admin: 02/19/17 18:15 Dose: 10,000 unit Ferric Sodium Gluconate Complex (Ferrlecit) 125 mg IVPB [facility] [place] Stop: 02/27/17 14:31 Last Admin: 02/19/17 17:14 Dose: 125 mg Heparin Sodium (Porcine) (Heparin) 5,000 units SC Q12 [facility] Last Admin: 02/19/17 21:14 Dose: 5,000 units Hydromorphone HCl (Dilaudid) 2 mg IVP Q3 PRN PRN Reason: Pain, severe (8-10) Last Admin: 02/20/17 06:08 Dose: 2 mg Insulin Aspart (Novolog) 6 unit SC AC [facility] Last Admin: 02/20/17 08:20 Dose: 6 unit Insulin Aspart (Novolog) 0 unit SC ACHS [facility] PRN Reason: Protocol Last Admin: 02/20/17 08:20 Dose: 1 unit Insulin Detemir (Levemir) 12 unit SC Q12 [facility] Last Admin: 02/19/17 21:57 Dose: 12 unit Metoclopramide HCl (Reglan) 10 mg PO DAILY [facility] Last Admin: 02/19/17 10:44 Dose: Not Given Nifedipine (Procardia Xl) 60 mg PO BID [facility] Last Admin: 02/19/17 21:09 Dose: Not Given Ondansetron HCl (Zofran Inj) 4 mg IVP Q4H PRN PRN Reason: Nausea/Vomiting Last Admin: 02/20/17 05:05 Dose: 4 mg Pantoprazole Sodium (Protonix Ec Tab) 40 mg PO DAILY [facility] Last Admin: 02/19/17 10:44 Dose: Not Given Polyethylene Glycol (Miralax) 17 gm PO BID [facility] Trimethobenzamide HCl (Tigan) 200 mg IM Q6 PRN PRN Reason: Nausea/Vomiting Last Admin: 02/20/17 00:25 Dose: 200 mg - Labs Labs: PT 13.3 SECONDS (9.7-12.2) H 02/17/17 07:53 INR 1.2 02/17/17 07:53 - Constitutional Appears: Non-toxic, In Acute Distress, Chronically Ill - Head Exam Head Exam: ATRAUMATIC, NORMAL INSPECTION, NORMOCEPHALIC - Eye Exam Eye Exam: Normal appearance, PERRL Pupil Exam: PERRL - ENT Exam ENT Exam: Mucous Membranes Moist, Normal Exam - Neck Exam Neck Exam: Normal Inspection - Respiratory Exam Respiratory Exam: Clear to Ausculation Bilateral, NORMAL BREATHING PATTERN - Cardiovascular Exam Cardiovascular Exam: Tachycardia, REGULAR RHYTHM, +S1, +S2 - GI/Abdominal Exam GI & Abdominal Exam: Soft, Tenderness, Normal Bowel Sounds - Rectal Exam Rectal Exam: Deferred - Extremities Exam Extremities Exam: Full ROM, Normal Inspection - Neurological Exam Neurological Exam: Alert, Awake, Oriented x3 - Psychiatric Exam Psychiatric exam: Agitated - Skin Skin Exam: Abrasion, Dry, Intact, Normal Color, Warm Assessment and Plan - Assessment and Plan (Free Text) Assessment: 31 year old female with history of Diabetes, ESRD on HD MWF, chronic anemia 2/2 kidney disease, PUD 04/2016, biliary erosive gastritis, gastroparesis, and esophageal candidiasis presenting with intractable vomiting. Multiple prior EGDs with PUD (2013,2015), biliary/erosive/ nodular Gastritis (2014), LAGC esophagitis (2015), duodenitis (2013), and esophageal candidiasis (2014). No prior colonoscopy. Recent EGD 01/2017 during [facility] stay endorsed to be normal. 1. Gastroparesis 2. Intractable vomiting 3. Constipation 4. Abdominal Pain Plan: Gastroparesis- continue supportive care with Tigan and encourage pro-kinetic reglan. Worsened with narocotic use. -liquid diet and advance as tolerated -small frequent meals / low fat -continue PPI -bowel regimen, will increase miralax to bid with colace. Worsened with narocotic use. -recommend primary team to start tapering down narcotics -ordered LFTs, Abdominal Flat plate and Abdominal US for continued pain, N/V, constipation w/o flatus -records requested from [facility] for reported EGD done in January 2017. <Regino Multani - Last Filed: 02/20/17 09:50> Objective - Vital Signs/Intake and Output Vital Signs (last 24 hours): Temp Pulse Resp BP Pulse Ox 98.2 F 80 20 127/67 100 02/20/17 08:52 02/20/17 08:52 02/20/17 08:52 02/20/17 08:52 02/20/17 08:52 Intake and Output: 02/20/17 02/20/17 06:59 18:59 Intake Total 100 Balance 100 - Medications Medications: Current Medications Calcium Acetate (Phoslo) 667 mg PO TID [facility] Last Admin: 02/20/17 09:11 Dose: Not Given Clonidine HCl (Catapres-Tts3 0.3 Mg/24 Hr) 1 patch TD Q7D@1000 KAREN Diphenhydramine HCl (Benadryl) 50 mg IVP Q3 PRN PRN Reason: Itching / Pruritus Last Admin: 02/20/17 09:11 Dose: 50 mg Docusate Sodium (Colace) 100 mg PO TID [facility] Last Admin: 02/20/17 09:11 Dose: Not Given Epoetin James (Procrit) 10,000 unit IV [facility] [place] Admin: 02/19/17 18:15 Dose: 10,000 unit Ferric Sodium Gluconate Complex (Ferrlecit) 125 mg IVPB [facility] [place] Stop: 02/27/17 14:31 Last Admin: 02/19/17 17:14 Dose: 125 mg Heparin Sodium (Porcine) (Heparin) 5,000 units SC Q12 [facility] Last Admin: 02/20/17 09:14 Dose: Not Given Hydromorphone HCl (Dilaudid) 2 mg IVP Q3 PRN PRN Reason: Pain, severe (8-10) Last Admin: 02/20/17 09:12 Dose: 2 mg Insulin Aspart (Novolog) 6 unit SC AC [facility] Last Admin: 02/20/17 08:20 Dose: 6 unit Insulin Aspart (Novolog) 0 unit SC [facility] PRN Reason: Protocol Last Admin: 02/20/17 08:20 Dose: 1 unit Insulin Detemir (Levemir) 12 unit SC Q12 [facility] Last Admin: 02/20/17 09:13 Dose: Not Given Metoclopramide HCl (Reglan) 10 mg PO DAILY [facility] Last Admin: 02/20/17 09:13 Dose: Not Given Nifedipine (Procardia Xl) 60 mg PO BID [facility] Last Admin: 02/20/17 09:15 Dose: Not Given Ondansetron HCl (Zofran Inj) 4 mg IVP Q4H PRN PRN Reason: Nausea/Vomiting Last Admin: 02/20/17 09:11 Dose: 4 mg Pantoprazole Sodium (Protonix Ec Tab) 40 mg PO DAILY [facility] Last Admin: 02/20/17 09:11 Dose: Not Given Polyethylene Glycol (Miralax) 17 gm PO BID [facility] Last Admin: 02/20/17 09:38 Dose: Not Given Trimethobenzamide HCl (Tigan) 200 mg IM Q6 PRN PRN Reason: Nausea/Vomiting Last Admin: 02/20/17 00:25 Dose: 200 mg - Labs Labs: PT 13.3 SECONDS (9.7-12.2) H 02/17/17 07:53 INR 1.2 02/17/17 07:53 Attending/Attestation - Attestation I have personally seen and examined this patient.: Yes I have fully participated in the care of the patient.: Yes I have reviewed all pertinent clinical information, including history, physical exam and plan: Yes Notes (Text): 02/20/17 09:46 I have seen and examined patient with GI fellow. She is seen ambulating in room , continues to complain of diffuse generalized abdominal pain and one episode of clear non-bloody emesis this morning. She continues to have difficulty with PO liquid diet. She has not had a bowel movement over past 4 days and is not passing gas. Review of vitals from today are normal. DM ESRD on HD Abdominal pain, nausea, vomiting - ?gastroparesis, though recent HbA1C is < 7 - Liquid diet as tolerated - Anti-emetic therapy - Patient with prior history of abdominal surgery, continued vomiting - obtain abdominal XR obstructive series - Obtain abdominal US for further evaluation - Continue with PPI therapy - Would suggest reduction in narcotic pain medication use as this may contribute to worsening patient symptoms - Obtain results of recent EGD from [facility] last month - Will continue to monitor patient clinical course
--- NOTE | 2017-02-20 11:20 | CP.PCM.PN ---
Subjective - Date & Time of Evaluation Date of Evaluation: 02/20/17 Time of Evaluation: 08:40 - Subjective Subjective: clinically same Objective - Vital Signs/Intake and Output Vital Signs (last 24 hours): Temp Pulse Resp BP Pulse Ox 98.2 F 80 20 127/67 100 02/20/17 08:52 02/20/17 08:52 02/20/17 08:52 02/20/17 08:52 02/20/17 08:52 Intake and Output: 02/20/17 02/20/17 06:59 18:59 Intake Total 100 Balance 100 - Medications Medications: Current Medications Calcium Acetate (Phoslo) 667 mg PO TID [facility] Last Admin: 02/20/17 09:11 Dose: Not Given Clonidine HCl (Catapres-Tts3 0.3 Mg/24 Hr) 1 patch TD Q7D@1000 KAREN Diphenhydramine HCl (Benadryl) 50 mg IVP Q3 PRN PRN Reason: Itching / Pruritus Last Admin: 02/20/17 09:11 Dose: 50 mg Docusate Sodium (Colace) 100 mg PO TID [facility] Last Admin: 02/20/17 09:11 Dose: Not Given Epoetin James (Procrit) 10,000 unit IV [facility] [place] Last Admin: 02/19/17 18:15 Dose: 10,000 unit Ferric Sodium Gluconate Complex (Ferrlecit) 125 mg IVPB F [facility] Stop: 02/27/17 14:31 Last Admin: 02/19/17 17:14 Dose: 125 mg Heparin Sodium (Porcine) (Heparin) 5,000 units SC Q12 [facility] Last Admin: 02/20/17 09:14 Dose: Not Given Hydromorphone HCl (Dilaudid) 2 mg IVP Q3 PRN PRN Reason: Pain, severe (8-10) Last Admin: 02/20/17 09:12 Dose: 2 mg Insulin Aspart (Novolog) 6 unit SC AC [facility] Last Admin: 02/20/17 08:20 Dose: 6 unit Insulin Aspart (Novolog) 0 unit SC ACHS [facility] PRN Reason: Protocol Last Admin: 02/20/17 08:20 Dose: 1 unit Insulin Detemir (Levemir) 12 unit SC Q12 [facility] Last Admin: 02/20/17 09:13 Dose: Not Given Metoclopramide HCl (Reglan) 10 mg PO DAILY [facility] Last Admin: 02/20/17 09:13 Dose: Not Given Nifedipine (Procardia Xl) 60 mg PO BID [facility] Last Admin: 02/20/17 09:15 Dose: Not Given Ondansetron HCl (Zofran Inj) 4 mg IVP Q4H PRN PRN Reason: Nausea/Vomiting Last Admin: 02/20/17 09:11 Dose: 4 mg Pantoprazole Sodium (Protonix Ec Tab) 40 mg PO DAILY [facility] Last Admin: 02/20/17 09:11 Dose: Not Given Polyethylene Glycol (Miralax) 17 gm PO BID [facility] Last Admin: 02/20/17 09:38 Dose: Not Given Trimethobenzamide HCl (Tigan) 200 mg IM Q6 PRN PRN Reason: Nausea/Vomiting Last Admin: 02/20/17 00:25 Dose: 200 mg - Labs Labs: PT 13.3 SECONDS (9.7-12.2) H 02/17/17 07:53 INR 1.2 02/17/17 07:53 - Constitutional Appears: Well - Head Exam Head Exam: ATRAUMATIC, NORMAL INSPECTION, NORMOCEPHALIC - Eye Exam Eye Exam: EOMI, Normal appearance, PERRL Pupil Exam: NORMAL ACCOMODATION, PERRL - ENT Exam ENT Exam: Mucous Membranes Moist, Normal Exam - Neck Exam Neck Exam: Full ROM, Normal Inspection. absent: Lymphadenopathy - Respiratory Exam Respiratory Exam: Decreased Breath Sounds - Cardiovascular Exam Cardiovascular Exam: REGULAR RHYTHM, +S1, +S2 - GI/Abdominal Exam GI & Abdominal Exam: Soft, Diminished Bowel Sounds - Rectal Exam Rectal Exam: Deferred Assessment and Plan - Assessment and Plan (Free Text) Plan: Nurse called stating that GI wants to restart the patient's and possible drug- seeking behavior be advised to GI to document. continue as advised probably be discharged the patient's tomorrow
--- NOTE | 2017-02-20 12:10 | CP.PCM.PN ---
Subjective - Date & Time of Evaluation Date of Evaluation: 02/20/17 Time of Evaluation: 09:00 - Subjective Subjective: blood c/s repeated results pending iv rx in progress Objective - Vital Signs/Intake and Output Vital Signs (last 24 hours): Temp Pulse Resp BP Pulse Ox 98.2 F 80 20 127/67 100 02/20/17 08:52 02/20/17 08:52 02/20/17 08:52 02/20/17 08:52 02/20/17 08:52 Intake and Output: 02/20/17 02/20/17 06:59 18:59 Intake Total 100 Balance 100 - Medications Medications: Current Medications Calcium Acetate (Phoslo) 667 mg PO TID [facility] Last Admin: 02/20/17 09:11 Dose: Not Given Clonidine HCl (Catapres-Tts3 0.3 Mg/24 Hr) 1 patch TD Q7D@1000 KAREN Diphenhydramine HCl (Benadryl) 50 mg IVP Q3 PRN PRN Reason: Itching / Pruritus Last Admin: 02/20/17 09:11 Dose: 50 mg Docusate Sodium (Colace) 100 mg PO TID [facility] Last Admin: 02/20/17 09:11 Dose: Not Given Epoetin James (Procrit) 10,000 unit [place] [facility] [place] Admin: 02/19/17 18:15 Dose: 10,000 unit Ferric Sodium Gluconate Complex (Ferrlecit) 125 mg IVPB F [facility] Stop: 02/27/17 14:31 Last Admin: 02/19/17 17:14 Dose: 125 mg Heparin Sodium (Porcine) (Heparin) 5,000 units SC Q12 [facility] Last Admin: 02/20/17 09:14 Dose: Not Given Hydromorphone HCl (Dilaudid) 2 mg IVP Q3 PRN PRN Reason: Pain, severe (8-10) Last Admin: 02/20/17 09:12 Dose: 2 mg Insulin Aspart (Novolog) 6 unit SC AC [facility] Last Admin: 02/20/17 12:02 Dose: Not Given Insulin Aspart (Novolog) 0 unit SC ACHS [facility] PRN Reason: Protocol Last Admin: 02/20/17 12:03 Dose: Not Given Insulin Detemir (Levemir) 12 unit SC Q12 [facility] Last Admin: 02/20/17 09:13 Dose: Not Given Metoclopramide HCl (Reglan) 10 mg PO DAILY [facility] Last Admin: 02/20/17 09:13 Dose: Not Given Nifedipine (Procardia Xl) 60 mg PO BID [facility] Last Admin: 02/20/17 09:15 Dose: Not Given Ondansetron HCl (Zofran Inj) 4 mg IVP Q4H PRN PRN Reason: Nausea/Vomiting Last Admin: 02/20/17 09:11 Dose: 4 mg Pantoprazole Sodium (Protonix Ec Tab) 40 mg PO DAILY [facility] Last Admin: 02/20/17 09:11 Dose: Not Given Polyethylene Glycol (Miralax) 17 gm PO BID [facility] Last Admin: 02/20/17 09:38 Dose: Not Given Trimethobenzamide HCl (Tigan) 200 mg IM Q6 PRN PRN Reason: Nausea/Vomiting Last Admin: 02/20/17 00:25 Dose: 200 mg - Labs Labs: PT 13.3 SECONDS (9.7-12.2) H 02/17/17 07:53 INR 1.2 02/17/17 07:53 - Constitutional Appears: Non-toxic - Head Exam Head Exam: NORMAL INSPECTION - Eye Exam Eye Exam: absent: Scleral icterus - ENT Exam ENT Exam: Mucous Membranes Dry - Neck Exam Neck Exam: absent: Lymphadenopathy - Respiratory Exam Respiratory Exam: Decreased Breath Sounds, Clear to Ausculation Bilateral - Cardiovascular Exam Cardiovascular Exam: REGULAR RHYTHM - GI/Abdominal Exam GI & Abdominal Exam: Distended, Soft - Rectal Exam Rectal Exam: Deferred Assessment and Plan - Assessment and Plan (Free Text) Plan: await cultures
--- NOTE | 2017-02-20 14:30 | RAD ---
PROCEDURE: Radiographs of the chest and abdomen (obstructive series) HISTORY: Abdominal Pain, constipation COMPARISON: 09/06/2016 TECHNIQUE: AP radiograph of the chest, with upright and supine radiographs of the abdomen. FINDINGS: CHEST: Lungs: Clear. Cardiovascular: Upper limits normal cardiac size. No pulmonary vascular congestion. Pleura: No pleural fluid. No pneumothorax. Other findings: None. ABDOMEN AND PELVIS: Bowel: Unremarkable bowel gas pattern. No evidence of mechanical obstruction. There is relatively prominent fecal loading throughout the large bowel, predominately at the left greater than right hemicolon. No air-fluid levels are identified. Free air: None. Bones: Unremarkable. Other findings: None. IMPRESSION: Prominent fecal loading is seen throughout the majority of the large bowel. A nonobstructive bowel gas pattern is appreciated this time.
--- NOTE | 2017-02-20 15:51 | US ---
HISTORY: Abdominal Pain COMPARISON: 09/21/2016 TECHNIQUE: Sonographic evaluation of the abdomen. FINDINGS: LIVER: Measures 18.2 cm. Hepatopedal blood flow. Fatty infiltration manifest ultrasonographically as increased echogenicity of the liver parenchyma. No mass. No intrahepatic bile duct dilatation. GALLBLADDER: Status post cholecystectomy. No abnormality is seen in the gallbladder fossa. COMMON BILE DUCT: Measures 5.9 mm. No stones. No dilatation. PANCREAS: Unremarkable as visualized. No mass. No ductal dilatation. RIGHT KIDNEY: Measures 2.9 x 8.0cm. Atrophic right kidney. No calculus, mass, or hydronephrosis. LEFT KIDNEY: Measures 5 x 8.6cm. Atrophic left kidney. No calculus, mass, or hydronephrosis. SPLEEN: Normal in size and contour. No mass. AORTA: No aneurysmal dilatation. IVC: Unremarkable. OTHER FINDINGS: None. IMPRESSION: No significant interval change compared to the prior examination(s).No acute findings related to/accounting for the clinical presentation.
--- NOTE | 2017-02-20 21:02 | CP.PCM.PN ---
Subjective - Date & Time of Evaluation Date of Evaluation: 02/20/17 Time of Evaluation: 15:00 - Subjective Subjective: SEEN ON RENAL F/U SEEN ALONG WITH [facility] STILL WITH ABDO PAIN Objective - Vital Signs/Intake and Output Vital Signs (last 24 hours): Temp Pulse Resp BP Pulse Ox 98.2 F 80 20 127/67 100 02/20/17 08:52 02/20/17 08:52 02/20/17 08:52 02/20/17 08:52 02/20/17 08:52 Intake and Output: 02/20/17 02/21/17 18:59 06:59 Intake Total 35 Balance 35 - Medications Medications: Current Medications Calcium Acetate (Phoslo) 667 mg PO TID [facility] Last Admin: 02/20/17 17:24 Dose: Not Given Clonidine HCl (Catapres-Tts3 0.3 Mg/24 Hr) 1 patch TD Q7D@1000 [facility] Diphenhydramine HCl (Benadryl) 50 mg IVP Q3 PRN PRN Reason: Itching / Pruritus Last Admin: 02/20/17 18:29 Dose: 50 mg Docusate Sodium (Colace) 100 mg PO TID [facility] Last Admin: 02/20/17 17:22 Dose: 100 mg Epoetin James (Procrit) 10,000 [place] [facility] [place] Last Admin: 02/19/17 18:15 Dose: 10,000 unit Ferric Sodium Gluconate Complex (Ferrlecit) 125 mg [place]PB [facility] Stop: 02/27/17 14:31 Last Admin: 02/19/17 17:14 Dose: 125 mg Heparin Sodium (Porcine) (Heparin) 5,000 units SC Q12 [facility] Last Admin: 02/20/17 09:14 Dose: Not Given Hydromorphone HCl (Dilaudid) 2 mg IVP Q3 PRN PRN Reason: Pain, severe (8-10) Last Admin: 02/20/17 18:28 Dose: 2 mg Insulin Aspart (Novolog) 6 unit SC AC [facility] Last Admin: 02/20/17 16:55 Dose: Not Given Insulin Aspart (Novolog) 0 unit SC ACHS [facility] PRN Reason: Protocol Last Admin: 02/20/17 16:50 Dose: Not Given Insulin Detemir (Levemir) 12 unit SC Q12 [facility] Last Admin: 02/20/17 09:13 Dose: Not Given Metoclopramide HCl (Reglan) 10 mg PO DAILY [facility] Last Admin: 02/20/17 09:13 Dose: Not Given Nifedipine (Procardia Xl) 60 mg PO BID [facility] Last Admin: 02/20/17 18:05 Dose: Not Given Ondansetron HCl (Zofran Inj) 4 mg IVP Q4H PRN PRN Reason: Nausea/Vomiting Last Admin: 02/20/17 18:35 Dose: 4 mg Pantoprazole Sodium (Protonix Ec Tab) 40 mg PO DAILY [facility] Last Admin: 02/20/17 09:11 Dose: Not Given Polyethylene Glycol (Miralax) 17 gm PO BID [facility] Last Admin: 02/20/17 17:23 Dose: Not Given Trimethobenzamide HCl (Tigan) 200 mg IM Q6 PRN PRN Reason: Nausea/Vomiting Last Admin: 02/20/17 12:12 Dose: 200 mg - Labs Labs: PT 13.3 SECONDS (9.7-12.2) H 02/17/17 07:53 INR 1.2 02/17/17 07:53 Assessment and Plan - Assessment and Plan (Free Text) Assessment: ESRD ON HD TTS .. TO BE C/O ANEMIA OF CKD .. ON EPO AND FERLECIT SEPSIS D GASTROPERESIS MULTIPLE CO MORBIDITIES P : C/O CURRENT CARE C/O PRESENT MANAGEMENT
[2017-02-21] MEDS: DiphenhydrAMINE 50 mg/ml Inj IVP PRN ×6 (00:28→22:46)
--- NOTE | 2017-02-21 07:09 | CP.PCM.PN ---
<Mariana Gomes - Last Filed: 02/21/17 09:06> Subjective - Date & Time of Evaluation Date of Evaluation: 02/21/17 Time of Evaluation: 07:05 - Subjective Subjective: GI Fellow PGY4 Progress Note Pt seen and examined at beside, pt appears comfortable in no acute distress, pt complaining of still having pain and not feeling well. Per nursing overnight, pt continues to request prn pain medication and was seen painting her nails last night. Pt denies any bowel movement, the results of the obstruction series was discussed with patient and the importance of bowel regimen and decreasing her pain medication. Pt reports she will take something after HD today for her bowels and that she still needs her pain medication. Pt denies fevers, chills, and reports slight improvement in abdominal pain. ROS: A 12pt ROS was obtained and was negative except as mentioned above. Objective - Vital Signs/Intake and Output Vital Signs (last 24 hours): Temp Pulse Resp BP Pulse Ox 98.2 F 80 20 127/67 100 02/20/17 08:52 02/20/17 08:52 02/20/17 08:52 02/20/17 08:52 02/20/17 08:52 Intake and Output: 02/21/17 02/21/17 06:59 18:59 Intake Total 200 Balance 200 - Medications Medications: Current Medications Calcium Acetate (Phoslo) 667 mg PO TID [facility] Last Admin: 02/20/17 17:24 Dose: Not Given Clonidine HCl (Catapres-Tts3 0.3 Mg/24 Hr) 1 patch TD Q7D@1000 [facility] Diphenhydramine HCl (Benadryl) 50 mg IVP Q3 PRN PRN Reason: Itching / Pruritus Last Admin: 02/21/17 06:26 Dose: 50 mg Docusate Sodium (Colace) 100 mg PO TID [facility] Last Admin: 02/20/17 17:22 Dose: 100 mg Epoetin James (Procrit) 10,000 unit IV [facility] Last Admin: 02/19/17 18:15 Dose: 10,000 unit Ferric Sodium Gluconate Complex (Ferrlecit) 125 mg IVPB F [facility] Stop: 02/27/17 14:31 Last Admin: 02/19/17 17:14 Dose: 125 mg Heparin Sodium (Porcine) (Heparin) 5,000 units SC Q12 [facility] Last Admin: 02/20/17 21:31 Dose: Not Given Hydromorphone HCl (Dilaudid) 2 mg IVP Q3 PRN PRN Reason: Pain, severe (8-10) Last Admin: 02/21/17 06:26 Dose: 2 mg Vancomycin HCl 0.5 gm/ Sodium (Chloride) 100 mls @ 100 mls/hr IVPB MWF [facility] Insulin Aspart (Novolog) 6 unit SC AC [facility] Last Admin: 02/20/17 16:55 Dose: Not Given Insulin Aspart (Novolog) 0 unit SC ACHS [facility] PRN Reason: Protocol Last Admin: 02/20/17 22:58 Dose: Not Given Insulin Detemir (Levemir) 12 unit SC Q12 [facility] Last Admin: 02/20/17 22:57 Dose: Not Given Metoclopramide HCl (Reglan) 10 mg PO DAILY [facility] Last Admin: 02/20/17 09:13 Dose: Not Given Nifedipine (Procardia Xl) 60 mg PO BID [facility] Last Admin: 02/20/17 18:05 Dose: Not Given Ondansetron HCl (Zofran Inj) 4 mg IVP Q4H PRN PRN Reason: Nausea/Vomiting Last Admin: 02/21/17 06:28 Dose: 4 mg Pantoprazole Sodium (Protonix Ec Tab) 40 mg PO DAILY [facility] Last Admin: 02/20/17 09:11 Dose: Not Given Polyethylene Glycol (Miralax) 17 gm PO BID [facility] Last Admin: 02/20/17 17:23 Dose: Not Given Trimethobenzamide HCl (Tigan) 200 mg IM Q6 PRN PRN Reason: Nausea/Vomiting Last Admin: 02/20/17 12:12 Dose: 200 mg - Labs Labs: PT 13.3 SECONDS (9.7-12.2) H 02/17/17 07:53 INR 1.2 02/17/17 07:53 - Constitutional Appears: Non-toxic, No Acute Distress - Head Exam Head Exam: ATRAUMATIC, NORMAL INSPECTION, NORMOCEPHALIC - Eye Exam Eye Exam: EOMI, Normal appearance, PERRL Pupil Exam: PERRL - ENT Exam ENT Exam: Mucous Membranes Moist, Normal Exam - Neck Exam Neck Exam: Full ROM, Normal Inspection - Respiratory Exam Respiratory Exam: Clear to Ausculation Bilateral, NORMAL BREATHING PATTERN - Cardiovascular Exam Cardiovascular Exam: REGULAR RHYTHM, RRR, +S1, +S2 - GI/Abdominal Exam GI & Abdominal Exam: Soft, Hypoactive Bowel Sounds. absent: Organomegaly - Rectal Exam Rectal Exam: Deferred - Extremities Exam Extremities Exam: Full ROM, Normal Inspection - Back Exam Back Exam: NORMAL INSPECTION - Neurological Exam Neurological Exam: Alert, Awake, Oriented x3 - Psychiatric Exam Psychiatric exam: Normal Affect, Normal Mood - Skin Skin Exam: Dry, Normal Color, Warm Assessment and Plan - Assessment and Plan (Free Text) Assessment: 31 year old female with history of Diabetes, ESRD on HD MWF, chronic anemia 2/2 kidney disease, PUD 04/2016, biliary erosive gastritis, gastroparesis, and esophageal candidiasis presenting with intractable vomiting. Multiple prior EGDs with PUD (2013,2015), biliary/erosive/ nodular Gastritis (2014), LAGC esophagitis (2015), duodenitis (2013), and esophageal candidiasis (2014). No prior colonoscopy. Recent EGD 01/2017 during [facility] stay endorsed to be normal. 1. Gastroparesis 2. Intractable vomiting 3. Constipation 4. Abdominal Pain Plan: -Gastroparesis- continue tight glycemic control, HgbA1c <7.0, continue supportive care with Tigan and encourage pro-kinetic reglan which pt has been refusing. Worsened with narcotic use. -Liquid diet and advance as tolerated -Continue PPI -Obstruction series positive for fecal loading L>R, with no signs of obstruction , air fluid level or free air. Abdominal US negative, fatty liver infiltrate. LFTs pending -Needs aggressive bowel regimen which pt has been refusing during this admission , will increase miralax to bid with colace and offered enema if needed. Worsened with narcotic use. -Recommend primary team to start tapering down narcotics to help with constipation/gastroparesis -Medical Records pending from [facility] for reported EGD done in January 2017 <Gunnar Timmons - Last Filed: 02/21/17 09:44> Objective - Vital Signs/Intake and Output Vital Signs (last 24 hours): Temp Pulse Resp BP Pulse Ox 97.5 F L 94 H 20 148/88 100 02/21/17 08:11 02/21/17 08:11 02/21/17 08:11 02/21/17 08:11 02/21/17 08:11 Intake and Output: 02/21/17 02/21/17 06:59 18:59 Intake Total 420 Balance 420 - Medications Medications: Current Medications Calcium Acetate (Phoslo) 667 mg PO TID [facility] Last Admin: 02/21/17 09:23 Dose: Not Given Clonidine HCl (Catapres-Tts3 0.3 Mg/24 Hr) 1 patch TD Q7D@1000 [facility] Diphenhydramine HCl (Benadryl) 50 mg IVP Q3 PRN PRN Reason: Itching / Pruritus Last Admin: 02/21/17 09:18 Dose: 50 mg Docusate Sodium (Colace) 100 mg PO TID [facility] Last Admin: 02/21/17 09:22 Dose: Not Given Epoetin James (Procrit) 10,000 unit IV [facility] Last Admin: 02/19/17 18:15 Dose: 10,000 unit Ferric Sodium Gluconate Complex (Ferrlecit) 125 mg IVPB [facility] Stop: 02/27/17 14:31 Last Admin: 02/19/17 17:14 Dose: 125 mg Heparin Sodium (Porcine) (Heparin) 5,000 units SC Q12 [facility] Last Admin: 02/21/17 09:22 Dose: Not Given Hydromorphone HCl (Dilaudid) 2 mg IVP Q3 PRN PRN Reason: Pain, severe (8-10) Last Admin: 02/21/17 09:16 Dose: 2 mg Vancomycin HCl 0.5 gm/ Sodium (Chloride) 100 mls @ 100 mls/hr IVPB [facility] Insulin Aspart (Novolog) 6 unit SC AC [facility] Last Admin: 02/21/17 07:42 Dose: 6 unit Insulin Aspart (Novolog) 0 unit SC ACHS [facility] PRN Reason: Protocol Last Admin: 02/21/17 07:42 Dose: 1 unit Insulin Detemir (Levemir) 12 unit SC Q12 [facility] Last Admin: 02/21/17 09:22 Dose: Not Given Metoclopramide HCl (Reglan) 10 mg PO DAILY [facility] Last Admin: 02/21/17 09:23 Dose: Not Given Nifedipine (Procardia Xl) 60 mg PO BID [facility] Last Admin: 02/21/17 09:23 Dose: Not Given Ondansetron HCl (Zofran Inj) 4 mg IVP Q4H PRN PRN Reason: Nausea/Vomiting Last Admin: 02/21/17 06:28 Dose: 4 mg Pantoprazole Sodium (Protonix Ec Tab) 40 mg PO DAILY [facility] Last Admin: 02/20/17 09:11 Dose: Not Given Polyethylene Glycol (Miralax) 17 gm PO BID [facility] Last Admin: 02/21/17 09:23 Dose: Not Given Trimethobenzamide HCl (Tigan) 200 mg IM Q6 PRN PRN Reason: Nausea/Vomiting Last Admin: 02/20/17 12:12 Dose: 200 mg - Labs Labs: PT 13.3 SECONDS (9.7-12.2) H 02/17/17 07:53 INR 1.2 02/17/17 07:53 Attending/Attestation - Attestation I have personally seen and examined this patient.: Yes I have fully participated in the care of the patient.: Yes I have reviewed all pertinent clinical information, including history, physical exam and plan: Yes Notes (Text): 02/21/17 09:40 31 year old female with h/o DM, ESRD on HD, anemia of chronic kidney disease, h/ o PUD, gastroparesis, and h/o esophageal candidiasis admitted with exacerbatoin of gastroparesis. 1. Gastroparesis 2. Opiod induced Constipation 3. Abdominal Pain Plan: -recommend supportive measures with anti-nausea and pro-kinetics -recommend minimizing narcotics, she is on high doses of dilaudid with IV benadryl which sugguest she may have a component of opiod addiction complicating her condition -explained the patient that the opiods will have a negative effect on her GI motility which is manifest by nausea, vomiting, and constipation -recommend supportive measures with glycemic control and bowel regimen -continue daily PPI -full liquid diet / small frequent meals/ low fat diet -no indication for endoscopy at this time -will sign off
[2017-02-21] MEDS: (Novolog) Insulin Aspart, Recombinant 100 u/ml 10 ml vial SC SCH ×5 (07:42→21:30)
[2017-02-21] MEDS: Insulin Detemir 100 units/ml Vial (Levemir) SC SCH (09:22)
[2017-02-21] MEDS: POLYETHYLENE GLYCOL 3350 17 GM/Dose PACKET PO SCH ×2 (09:23→19:26)
[2017-02-21] MEDS: NIFEdipine 60 mg ER Tab PO SCH ×2 (09:23→18:25)
[2017-02-21] MEDS: Trimethobenzamide 200 mg/2 mL Inj IM PRN (09:51)
[2017-02-21] MEDS ORDERED: Dextrose 50% SYRINGE Inj (50 ml) IV STA (09:54)
[2017-02-21] MEDS ORDERED: Dextrose 50% SYRINGE Inj (50 ml) ONE (09:58)
--- NOTE | 2017-02-21 10:02 | PCM.RRTMUL ---
MELTER HELPER Nurses Assessment New IV Insertion Tolerance:: Good - Vital Signs Blood Pressure:: 148/88 Pulse Rate:: 94 Respiratory Rate:: 20 Temperature:: 97.5 F I.Reason for MELTER HELPER - A) Acute Change in Patient: (Select all that apply): Staff member or family is worried about patient (blood sugar 32) Subjective: House Doctor Note: MELTER HELPER was called for blood glucose of 38 at 9:55. Patient was alert and oriented, but felt weakness, shakiness and felt nauseous. Patient did not have her breakfast this morning, and patient was given dose of Novolog this morning. At sugar of 38, patient was given orange juice and blood glucose went up to 42. 1 amp D50 was ordered stat and blood sugar went up to 105. HD was held for now as per Dr. Shilpa Sexton until college or university registrar notified. Nursing staff instructed to inform Dr. Edilia Sexton and college or university registrar. - A) Initial Vital Signs: Blood Pressure: 174/98 Pulse Rate: 91 Respiratory Rate: 16 Temperature: 97.6 F O2 Sat by Pulse Oximetry: 100 (on 2 L) Finger Stick Blood Glucose: 38 - B) Neurological Status (Select all that apply): Alert, Responsive, Oriented, Verbal - C) Respiratory Oxygen Delivery Method: Nasal Cannula @L/min Oxygen Flow Rate: 2 - Constitutional Appears: No Acute Distress - Head Head Exam: NORMAL INSPECTION, NORMOCEPHALIC - Eyes Eye Exam: EOMI, Normal appearance - Respiratory Exam Respiratory Exam: Clear to Ausculation Bilateral - Cardiovascular Exam Cardiovascular Exam: REGULAR RHYTHM - Neurological Exam Neurological Exam: Alert, Awake, Oriented x3 - Extremities Exam Extremities Exam: Full ROM, Normal Inspection Plan - A. End of MELTER HELPER Vital Signs: Blood Pressure: 174/98 Pulse Rate: 91 Respiratory Rate: 16 Temperature: 97.6 F O2 Sat by Pulse Oximetry: 100 (on 2 L) Finger Stick Blood Glucose: 100 - B. Assessment of Findings&Treatment Plan Hypoglycemia at 32 1 amp of D50 stat Zofran 4mg IVP stat
[2017-02-21] MEDS: Pantoprazole 40 mg EC Tab PO SCH (11:38)
[2017-02-21] MEDS ORDERED: DiphenhydrAMINE 50 mg/ml Inj IVP ONE (12:20)
[2017-02-21] MEDS ORDERED: Piperacillin/Tazobact 3.375 GM in Sodium Chloride 100 ML IVPB SCH (12:30)
[2017-02-21] MEDS ORDERED: HYDROmorphone 1 mg/ml ISec IVP ONE (12:30)
[2017-02-21] MEDS ORDERED: DiphenhydrAMINE 50 mg/ml Inj IVP PRN (13:08)
[2017-02-21] MEDS ORDERED: DiphenhydrAMINE 50 mg/ml Inj IVP STA (14:09)
[2017-02-21 14:16] LABS: HEMOGLOBIN 8.3 g/dL (11.0-16.0); MEAN CELL VOLUME 94.3 fL (81.0-99.0); MEAN CORPUSCULAR HEMOGLOBIN 31.8 pg (27.0-31.0); MEAN CORPUSCULAR HGB CONC 33.7 g/dL (33.0-37.0); MEAN PLATELET VOLUME 7.5 fL (7.2-11.7); RBC 2.62 Mil/uL (3.80-5.20); RED CELL DISTRIBUTION WIDTH 15.8 % (11.5-14.5); WHITE BLOOD COUNT 8.6 K/uL (4.8-10.8)
[2017-02-21 14:30] LABS: ALBUMIN 4.1 g/dL (3.5-5.0)
[2017-02-21 14:34] LABS: CALCIUM 7.6 mg/dl (8.6-10.4)
--- NOTE | 2017-02-21 14:52 | CP.PCM.PN ---
Subjective - Date & Time of Evaluation Date of Evaluation: 02/21/17 Time of Evaluation: 09:00 - Subjective Subjective: events noted + Blood c/s consider KAMRAN added Vanco Objective - Vital Signs/Intake and Output Vital Signs (last 24 hours): Temp Pulse Resp BP Pulse Ox 98.4 F 84 16 126/57 L 100 02/21/17 13:45 02/21/17 13:45 02/21/17 13:45 02/21/17 14:38 02/21/17 08:11 Intake and Output: 02/21/17 02/21/17 06:59 18:59 Intake Total 420 350 Balance 420 350 - Medications Medications: Current Medications Calcium Acetate (Phoslo) 667 mg PO TID [facility] Last Admin: 02/21/17 13:48 Dose: Not Given Clonidine HCl (Catapres-Tts3 0.3 Mg/24 Hr) 1 patch TD Q7D@1000 [facility] Diphenhydramine HCl (Benadryl) 50 mg IVP Q4 PRN PRN Reason: Itching / Pruritus Docusate Sodium (Colace) 100 mg PO TID [facility] Last Admin: 02/21/17 13:48 Dose: Not Given Epoetin James (Procrit) 10,000 unit IV [facility] Last Admin: 02/19/17 18:15 Dose: 10,000 unit Ferric Sodium Gluconate Complex (Ferrlecit) 125 mg IVPB [facility] Stop: 02/27/17 14:31 Last Admin: 02/19/17 17:14 Dose: 125 mg Heparin Sodium (Porcine) (Heparin) 5,000 units SC Q12 [facility] Last Admin: 02/21/17 09:22 Dose: Not Given Hydromorphone HCl (Dilaudid) 2 mg IVP Q4 PRN PRN Reason: Pain, severe (8-10) Vancomycin HCl 0.5 gm/ Sodium (Chloride) 100 mls @ [facility] Ins[facility] Aspart (Novolog) 6 unit SC AC [facility] Last Admin: 02/21/17 07:42 Dose: 6 unit Insulin Aspart (Novolog) 0 unit SC ACHS [facility] PRN Reason: Protocol Last Admin: 02/21/17 12:17 Dose: Not Given Insulin Detemir (Levemir) 12 unit SC Q12 [facility] Last Admin: 02/21/17 09:22 Dose: Not Given Metoclopramide HCl (Reglan) 10 mg PO DAILY [facility] Last Admin: 02/21/17 09:23 Dose: Not Given Nifedipine (Procardia Xl) 60 mg PO BID [facility] Last Admin: 02/21/17 09:23 Dose: Not Given Ondansetron HCl (Zofran Inj) 4 mg IVP Q4H PRN PRN Reason: Nausea/Vomiting Last Admin: 02/21/17 06:28 Dose: 4 mg Pantoprazole Sodium (Protonix Ec Tab) 40 mg PO DAILY [facility] Last Admin: 02/21/17 11:38 Dose: Not Given Polyethylene Glycol (Miralax) 17 gm PO BID [facility] Last Admin: 02/21/17 09:23 Dose: Not Given Trimethobenzamide HCl (Tigan) 200 mg IM Q6 PRN PRN Reason: Nausea/Vomiting Last Admin: 02/21/17 09:51 Dose: 200 mg - Labs Labs: 02/21/17 14:14 02/21/17 14:14 PT 13.3 SECONDS (9.7-12.2) H 02/17/17 07:53 INR 1.2 02/17/17 07:53 - Constitutional Appears: Non-toxic, Chronically Ill - Head Exam Head Exam: NORMOCEPHALIC - Eye Exam Eye Exam: PERRL. absent: Scleral icterus - ENT Exam ENT Exam: Mucous Membranes Dry, Normal External Ear Exam - Neck Exam Neck Exam: absent: Lymphadenopathy - Respiratory Exam Respiratory Exam: Decreased Breath Sounds, NORMAL BREATHING PATTERN - Cardiovascular Exam Cardiovascular Exam: REGULAR RHYTHM Assessment and Plan - Assessment and Plan (Free Text) Plan: + Blood c/s cont iv vanco
[2017-02-21] MEDS: Ferric Sodium Gluconat Complex 62.5 mg/5 ml Vial IVPB SCH ×2 (15:03→15:33)
[2017-02-21] MEDS: Epoetin Alfa 10,000 unit/ml Dialysis IV SCH (17:19)
[2017-02-21] MEDS ORDERED: Magnesium Hydroxide Susp 30 ml UD PO STA (17:32)
--- NOTE | 2017-02-21 17:43 | PCM.RRTMUL ---
VICE PRESIDENT UNDERWRITING Nurses Assessment - Situation Location:: 3 T Dialysis Room Number:: 362 VICE PRESIDENT UNDERWRITING Reason for Call: Chest Pain VICE PRESIDENT UNDERWRITING Called By: RN - IV IV Inserted during VICE PRESIDENT UNDERWRITING?: No New IV Insertion Tolerance:: Good - Respiratory Oxygen Delivery Method:: Nasal Cannula Received Nebulizer Treatments:: No Was the Patient Ventilated with Bag/Mask 100% O2?: No Secretions Suctioned?: No Was the Patient Intubated?: No Was the Patient Placed on a Ventilator?: No - Vital Signs Respiratory Rate:: 18 Temperature:: 98.4 F I.Reason for VICE PRESIDENT UNDERWRITING - A) Acute Change in Patient: (Select all that apply): Staff member or family is worried about patient - A) Initial Vital Signs: Blood Pressure: 154/71 (Repeat 145/94) Pulse Rate: 87 (Repeat 103) Temperature: 97.8 F O2 Sat by Pulse Oximetry: 100 (2 L nc) Finger Stick Blood Glucose: 202 - B) Neurological Status (Select all that apply): Alert, Responsive, Verbal, Follows Commands - C) Respiratory Oxygen Delivery Method: Nasal Cannula @L/min - Constitutional Additional Comments: Mild acute distress - Head Head Exam: ATRAUMATIC, NORMAL INSPECTION - Eyes Eye Exam: EOMI, Normal appearance, PERRL - Respiratory Exam Respiratory Exam: Clear to Ausculation Bilateral, NORMAL BREATHING PATTERN - Cardiovascular Exam Cardiovascular Exam: +S1, +S2 - GI/Abdominal Exam GI & Abdominal Exam: Soft, Normal Bowel Sounds. absent: Tenderness - Neurological Exam Neurological Exam: Alert, Awake, Oriented x3 - Extremities Exam Extremities Exam: Full ROM Plan - A. End of VICE PRESIDENT UNDERWRITING Vital Signs: Blood Pressure: 134/80 Pulse Rate: 92 Temperature: 97.8 F O2 Sat by Pulse Oximetry: 100 - B. Assessment of Findings&Treatment Plan VICE PRESIDENT UNDERWRITING called at 17:28 PM for reproducible midsternal chest pain towards the end of dialysis. Patient describes the chest pain has " tight cramping", rating it a 10/10. Patient's chest pain was reproducible. Patient denies sob, palpitations , dizziness, nausea, vomiting and diaphoresis. Patient denies any radiation of he pain. Vitals obtained at the beginning and end. Patient remained awake, alert and oriented throughout the event. EKGs obtained- NSR with LVH noted;; prolonged QT. Comparison to EKG from 11/27 which at the time showed Sinus tachycardia , Milk of Magnesia 30 ml administered as well. Patient felt better after medication was given. Attending to be notified.
--- NOTE | 2017-02-21 18:18 | CP.PCM.PN ---
Subjective - Date & Time of Evaluation Date of Evaluation: 02/21/17 Time of Evaluation: 08:40 - Subjective Subjective: clinically same Objective - Vital Signs/Intake and Output Vital Signs (last 24 hours): Temp Pulse Resp BP Pulse Ox 97.8 F 92 H 18 134/80 84 L 02/21/17 18:04 02/21/17 18:04 02/21/17 18:04 02/21/17 18:04 02/21/17 14:05 Intake and Output: 02/21/17 02/21/17 06:59 18:59 Intake Total 420 350 Balance 420 350 - Medications Medications: Current Medications Calcium Acetate (Phoslo) 667 mg PO TID [facility] Last Admin: 02/21/17 13:48 Dose: Not Given Clonidine HCl (Catapres-Tts3 0.3 Mg/24 Hr) 1 patch TD Q7D@1000 [facility] Diphenhydramine HCl (Benadryl) 50 mg IVP Q4 PRN PRN Reason: Itching / Pruritus Last Admin: 02/21/17 16:58 Dose: 50 mg Docusate Sodium (Colace) 100 mg PO TID [facility] Last Admin: 02/21/17 13:48 Dose: Not Given Epoetin James (Procrit) 10,000 unit IV [facility] Last Admin: 02/21/17 17:19 Dose: 10,000 unit Ferric Sodium Gluconate Complex (Ferrlecit) 125 mg IVPB [facility] Stop: 02/27/17 14:31 Last Admin: 02/21/17 15:33 Dose: Not Given Heparin Sodium (Porcine) (Heparin) 5,000 units SC Q12 [facility] Last Admin: 02/21/17 09:22 Dose: Not Given Hydromorphone HCl (Dilaudid) 2 mg IVP Q4 PRN PRN Reason: Pain, severe (8-10) Last Admin: 02/21/17 16:52 Dose: 2 mg Vancomycin HCl 0.5 gm/ Sodium (Chloride) 100 mls @ 100 mls/hr IVPB [facility] Insulin Aspart (Novolog) 6 unit SC AC [facility] Last Admin: 02/21/17 07:42 Dose: 6 unit Insulin Aspart (Novolog) [facility] PRN Reason: Protocol Last Admin: 02/21/17 12:17 Dose: Not Given Insulin Detemir (Levemir) 12 unit SC Q12 [facility] Last Admin: 02/21/17 09:22 Dose: Not Given Metoclopramide HCl (Reglan) 10 mg PO DAILY [facility] Last Admin: 02/21/17 09:23 Dose: Not Given Nifedipine (Procardia Xl) 60 mg PO BID [facility] Last Admin: 02/21/17 09:23 Dose: Not Given Ondansetron HCl (Zofran Inj) 4 mg IVP Q4H PRN PRN Reason: Nausea/Vomiting Last Admin: 02/21/17 06:28 Dose: 4 mg Pantoprazole Sodium (Protonix Ec Tab) 40 mg PO DAILY [facility] Last Admin: 02/21/17 11:38 Dose: Not Given Polyethylene Glycol (Miralax) 17 gm PO BID [facility] Last Admin: 02/21/17 09:23 Dose: Not Given Trimethobenzamide HCl (Tigan) 200 mg IM Q6 PRN PRN Reason: Nausea/Vomiting Last Admin: 02/21/17 09:51 Dose: 200 mg - Labs Labs: 02/21/17 14:14 02/21/17 14:14 PT 13.3 SECONDS (9.7-12.2) H 02/17/17 07:53 INR 1.2 02/17/17 07:53
[2017-02-21 20:27] LABS: CK-MB 4.11 ng/mL (0.0-3.38)
[2017-02-21] MEDS ORDERED: (Novolog Mix 70/30) Insulin Aspart/Insulin Aspar 100 units/ml SC ONE (22:04)
[2017-02-21] MEDS ORDERED: (Novolog) Insulin Aspart, Recombinant 100 u/ml 10 ml vial SC ONE (22:22)
--- NOTE | 2017-02-21 23:55 | CP.PCM.PN ---
Subjective - Date & Time of Evaluation Date of Evaluation: 02/21/17 Time of Evaluation: 15:00 - Subjective Subjective: DROPPED HER BLOOD SUGAR .. [employer] AR[employer] WAS CALLED SEEN ON HD .. TOLERATING WELL STILL C/O ABDO PAIN ON HD MWF AND SAT Objective - Vital Signs/Intake and Output Vital Signs (last 24 hours): Temp Pulse Resp BP Pulse Ox 97.8 F 92 H 18 134/80 100 02/21/17 18:04 02/21/17 18:04 02/21/17 18:04 02/21/17 18:04 02/21/17 17:00 Intake and Output: 02/21/17 02/22/17 18:59 06:59 Intake Total 350 Balance 350 - Medications Medications: Current Medications Calcium Acetate (Phoslo) 667 mg PO TID [facility] Last Admin: 02/21/17 19:27 Dose: Not Given Clonidine HCl (Catapres-Tts3 0.3 Mg/24 Hr) 1 patch TD Q7D@1000 [facility] Diphenhydramine HCl (Benadryl) 25 mg IVP Q3 PRN PRN Reason: Itching / Pruritus Last Admin: 02/21/17 22:46 Dose: 25 mg Docusate Sodium (Colace) 100 mg PO TID [facility] Last Admin: 02/21/17 18:22 Dose: 100 mg Epoetin James (Procrit) 10,000 unit IV [facility] Last Admin: 02/21/17 17:19 Dose: 10,000 unit Ferric Sodium Gluconate Complex (Ferrlecit) 125 mg IVPB [facility] Stop: 02/27/17 14:31 Last Admin: 02/21/17 15:33 Dose: Not Given Heparin Sodium (Porcine) (Heparin) 5,000 units SC Q12 [facility] Last Admin: 02/21/17 22:13 Dose: Not Given Hydromorphone HCl (Dilaudid) 2 mg IVP Q3 PRN PRN Reason: Pain, moderate (4-7) Last Admin: 02/21/17 22:46 Dose: 2 mg Vancomycin HCl 0.5 gm/ Sodium (Chloride) 100 mls @ 100 mls/hr IVPB [facility] Insulin Aspart (Novolog) 6 unit SC AC [facility] Last Admin: 02/21/17 07:42 Dose: 6 unit Insulin Aspart (Novolog) 0 unit SC ACHS [facility] PRN Reason: Protocol Last Admin: 02/21/17 21:30 Dose: 3 unit Insulin Detemir (Levemir) 12 unit SC Q12 [facility] Last Admin: 02/21/17 09:22 Dose: Not Given Metoclopramide HCl (Reglan) 10 mg PO DAILY [facility] Last Admin: 02/21/17 09:23 Dose: Not Given Nifedipine (Procardia Xl) 60 mg PO BID [facility] Last Admin: 02/21/17 18:25 Dose: 60 mg Ondansetron HCl (Zofran Inj) 4 mg IVP Q4H PRN PRN Reason: Nausea/Vomiting Last Admin: 02/21/17 06:28 Dose: 4 mg Pantoprazole Sodium (Protonix Ec Tab) 40 mg PO DAILY [facility] Last Admin: 02/21/17 11:38 Dose: Not Given Polyethylene Glycol (Miralax) 17 gm PO BID [facility] Last Admin: 02/21/17 19:26 Dose: Not Given Trimethobenzamide HCl (Tigan) 200 mg IM Q6 PRN PRN Reason: Nausea/Vomiting Last Admin: 02/21/17 09:51 Dose: 200 mg - Labs Labs: 02/21/17 14:14 02/21/17 14:14 PT 13.3 SECONDS (9.7-12.2) H 02/17/17 07:53 INR 1.2 02/17/17 07:53 Assessment and Plan - Assessment and Plan (Free Text) Assessment: ESRD ON HD MWF AND SAT .. TO BE C/O ANEMIA OF CKD .. ON EPO AND FERLICIT MULTIPLE CO MORBIDITIES P : C/O CURRENT CARE
[2017-02-22] MEDS: DiphenhydrAMINE 50 mg/ml Inj IVP PRN ×7 (01:48→20:21)
[2017-02-22 02:29] LABS: CK-MB 2.99 ng/mL (0.0-3.38)
[2017-02-22] MEDS: Trimethobenzamide 200 mg/2 mL Inj IM PRN (05:09)
[2017-02-22] MEDS: (Novolog) Insulin Aspart, Recombinant 100 u/ml 10 ml vial SC SCH ×6 (08:14→21:18)
[2017-02-22] MEDS: POLYETHYLENE GLYCOL 3350 17 GM/Dose PACKET PO SCH ×2 (10:05→19:10)
[2017-02-22] MEDS: Pantoprazole 40 mg EC Tab PO SCH (10:22)
[2017-02-22] MEDS: NIFEdipine 60 mg ER Tab PO SCH ×2 (10:23→17:30)
[2017-02-22] MEDS: Insulin Detemir 100 units/ml Vial (Levemir) SC SCH ×2 (10:23→21:17)
--- NOTE | 2017-02-22 14:31 | CP.PCM.CON ---
History of Present Illness - History of Present Illness History of Present Illness: I was asked to evalaute patietn by Dr. Edilia Sexton. Patient is a 31 year old female with a PMH DM, ESRD on HD and gastroperesis who intially presented with intaractable vomiting. She has been followed by GI and has had previous endoscopies demonstrating gastritis. 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 The patient complained of chest pain which she described as left sided, sharp and associated with deep inspiration. The patient states symptoms were progressive. Cardiology consultation was requested. Review of Systems - Constitutional Constitutional: absent: As Per HPI, Anorexia, Chills, Daytime Sleepiness, Excessive Sweating, Fatigue, Fever, Frequent Falls, Headache, Increased Appetite , Lethargy, Malaise, Night Sweats, Snoring, Sleep Apnea, Weight Gain, Weight Loss, Weakness, Other - EENT Eyes: absent: As Per HPI, Blind Spots, Blurred Vision, Change in Vision, Decreased Night Vision, Diplopia, Discharge, Dry Eye, Exophthalmos, Floaters, Irritation, Itchy Eyes, Loss of Peripheral Vision, Pain, Photophobia, Requires Corrective Lenses, Sees Flashes, Spots in Vision, Tunnel Vision, Other Visual Disturbances, Loss of Vision, Other Nose/Mouth/Throat: absent: As Per HPI, Epistaxis, Nasal Congestion, Nasal Discharge, Nasal Obstruction, Nasal Trauma, Nose Pain, Post Nasal Drip, Sinus Pain, Sinus Pressure, Bleeding Gums, Change in Voice, Dental Pain, Dry Mouth, Dysphagia, Halitosis, Hoarsness, Lip Swelling, Mouth Lesions, Mouth Pain, Odynophagia, Sore Throat, Throat Swelling, Tongue Swelling, Facial Pain, Neck Pain, Neck Mass, Other - Breasts Breasts: absent: As Per HPI, Change in Shape, Mass, Pain, Nipple Discharge, Nipple Inversion, Skin Changes, Swelling, Other - Cardiovascular Cardiovascular: absent: As Per HPI, Acrocyanosis, Chest Pain, Chest Pain at Rest , Chest Pain with Activity, Claudication, Diaphoresis, Dyspnea, Dyspnea on Exertion, Edema, Irregular Heart Rhythm, Pain Radiating to Arm/Neck/Jaw, Leg Edema, Leg Ulcers, Lightheadedness, Orthopnea, Palpitations, Paroxysmal Nocturnal Dyspnea, Pedal Edema, Radiating Pain, Rapid Heart Rate, Slow Heart Rate, Syncope, Other - Respiratory Respiratory: Dyspnea - Gastrointestinal Gastrointestinal: Dysphagia, Heartburn, Vomiting - Musculoskeletal Musculoskeletal: absent: As Per HPI, Abnormal Gait, Arthralgias, Atrophy, Back Pain, Deformity, Joint Swelling, Limited Range of Motion, Loss of Height, Muscle Cramps, Muscle Weakness, Myalgias, Neck Pain, Numbness, Radiating Pain into Limb, Stiffness, Tingling, Other - Integumentary Integumentary: absent: As Per HPI, Acne, Alopecia, Bleeding Lesions, Change in Hair, Change in Nails, Change in Pigmentation, Changing Lesions, Dry Skin, Erythema, Furuncle, Hirsutism, Lesions, New Lesions, Non-Healing Lesions, Photosensitivity, Pruritus, Rash, Skin Pain, Skin Ulcer, Sores, Striae, Swelling , Unusual Bruising, Wounds, Jaundice, Other - Neurological Neurological: absent: As Per HPI, Abnormal Gait, Abnormal Hearing, Abnormal Movements, Abnormal Speech, Behavioral Changes, Burning Sensations, Confusion, Convulsions, Disequilibrium, Dizziness, Numbness, Focal Weakness, Frequent Falls , Headaches, Lack of Coordination, Loss of Vision, Memory Loss, Paresthesias, Radicular Pain, Restless Legs, Sensory Deficit, Syncope, Tingling, Tremor, Vertigo, Weakness, Other Visual Disturbances, Other - Psychiatric Psychiatric: absent: As Per HPI, Abnormal Sleep Pattern, Anhedonia, Anxiety, Auditory Hallucinations, Behavioral Changes, Change in Appetite, Change in Libido, Confusion, Depression, Difficulty Concentrating, Hallucinations, Homicidal Ideation, Hopelessness, Irritability, Memory Loss, Mood Swings, Panic Attacks, Paranoia, Suicidal Ideation, Visual Hallucinations, Tactile Hallucinations, Other - Endocrine Endocrine: absent: As Per HPI, Change in Body Appearance, Change in Libido, Cold Intolorance, Deepening of Voice, Excessive Sweating, Fatigue, Flushing, Heat Intolorance, Increase in Ring/Shoe/Hat Size, Palpitations, Polydipsia, Polyphagia, Polyuria, Other - Hematologic/Lymphatic Hematologic: absent: As Per HPI, Easy Bleeding, Easy Bruising, Lymphadenopathy, Other Past Patient History - Infectious Disease Hx of Infectious Diseases: None - Tetanus Immunizations Tetanus Immunization: Unknown - Past Medical History & Family History Past Medical History?: Yes - Past Social History Smoking Status: Never Smoked - CARDIAC Hx Congestive Heart Failure: Yes (Florid) Hx Hypercholesterolemia: Yes Hx Hypertension: Yes Hx Peripheral Edema: Yes - NEUROLOGICAL Hx Seizures: Yes - HEENT Hx HEENT Problems: Yes Hx Cataracts: Yes Hx Glaucoma: Yes - RENAL Hx Chronic Kidney Disease: Yes Hx Kidney Stones: Yes - ENDOCRINE/METABOLIC Hx Hyperthyroidism: Yes Hx Hypothyroidism: Yes - HEMATOLOGICAL/ONCOLOGICAL Hx Anemia: Yes - INTEGUMENTARY Hx Dermatological Problems: Yes Other/Comment: DRY ITCHY SKIN ;multiple/generalized dark spots on skin - MUSCULOSKELETAL/RHEUMATOLOGICAL Hx Fractures: Yes (Sep 2012 L foot) - GASTROINTESTINAL Hx Gall Bladder Disease: Yes (gallbladder removed) Hx Gastritis: Yes Hx Pancreatitis: Yes (chronic) - GENITOURINARY/GYNECOLOGICAL Hx Genitourinary Disorders: No - PSYCHIATRIC Hx Anxiety: Yes Hx Substance Use: No - SURGICAL HISTORY Hx Cholecystectomy: Yes Hx Coronary Stent: Yes - ANESTHESIA Hx Anesthesia: Yes Hx Anesthesia Reactions: No Hx Malignant Hyperthermia: No Has any member of the family had a problem w/ anesthesia?: No Meds Allergies/Adverse Reactions: Allergies Allergy/AdvReac Type Severity Reaction Status Date / Time ketorolac tromethamine Allergy RASH Verified 02/16/17 14:57 [From Toradol] latex Allergy RASH Verified 02/16/17 14:57 morphine Allergy RASH Verified 02/16/17 14:57 tramadol Allergy RASH Verified 02/16/17 14:57 - Medications Medications: Current Medications Calcium Acetate (Phoslo) 667 mg PO TID [facility] Last Admin: 02/22/17 13:27 Dose: Not Given Clonidine HCl (Catapres-Tts3 0.3 Mg/24 Hr) 1 patch TD Q7D@1000 [facility] Diphenhydramine HCl (Benadryl) 25 mg IVP Q3 PRN PRN Reason: Itching / Pruritus Last Admin: 02/22/17 13:43 Dose: 25 mg Docusate Sodium (Colace) 100 mg PO TID [facility] Last Admin: 02/22/17 13:44 Dose: 100 mg Epoetin James (Procrit) 10,000 unit IV [facility] [place] Last Admin: 02/21/17 17:19 Dose: 10,000 unit Ferric Sodium Gluconate Complex (Ferrlecit) 125 mg IVPB [facility] [place] Stop: 02/27/17 14:31 Last Admin: 02/21/17 15:33 Dose: Not Given Heparin Sodium (Porcine) (Heparin) 5,000 units SC Q12 [facility] Last Admin: 02/22/17 10:05 Dose: Not Given Hydromorphone HCl (Dilaudid) 2 mg IVP Q3 PRN PRN Reason: Pain, moderate (4-7) Last Admin: 02/22/17 13:43 Dose: 2 mg Vancomycin HCl 0.5 gm/ Sodium (Chloride) 100 mls @ 100 mls/hr IVPB MWF [facility] Insulin Aspart (Novolog) 0 unit SC ACHS [facility] PRN Reason: Protocol Last Admin: 02/22/17 11:34 Dose: 3 unit Insulin Aspart (Novolog) 6 unit SC AC [facility] Last Admin: 02/22/17 11:35 Dose: 6 unit Insulin Detemir (Levemir) 12 unit SC Q12 [facility] Last Admin: 02/22/17 10:23 Dose: 12 unit Metoclopramide HCl (Reglan) 10 mg PO DAILY [facility] Last Admin: 02/22/17 10:22 Dose: 10 mg Nifedipine (Procardia Xl) 60 mg PO BID [facility] Last Admin: 02/22/17 10:23 Dose: 60 mg Ondansetron HCl (Zofran Inj) 4 mg IVP Q4H PRN PRN Reason: Nausea/Vomiting Last Admin: 02/22/17 01:49 Dose: 4 mg Pantoprazole Sodium (Protonix Ec Tab) 40 mg PO DAILY [facility] Last Admin: 02/22/17 10:22 Dose: 40 mg Polyethylene Glycol (Miralax) 17 gm PO BID [facility] Last Admin: 02/22/17 10:05 Dose: Not Given Trimethobenzamide HCl (Tigan) 200 mg IM Q6 PRN PRN Reason: Nausea/Vomiting Last Admin: 02/22/17 05:09 Dose: 200 mg Physical Exam - Constitutional Appears: Chronically Ill - Head Exam Head Exam: NORMAL INSPECTION - Eye Exam Eye Exam: Normal appearance - ENT Exam ENT Exam: Mucous Membranes Moist - Neck Exam Neck exam: Positive for: Full Rom - Respiratory Exam Respiratory Exam: NORMAL BREATHING PATTERN - Cardiovascular Exam Cardiovascular Exam: REGULAR RHYTHM - GI/Abdominal Exam GI & Abdominal Exam: Normal Bowel Sounds - Rectal Exam Rectal Exam: Deferred - Extremities Exam Extremities exam: Negative for: pedal edema - Back Exam Back exam: NORMAL INSPECTION - Neurological Exam Neurological exam: Alert, Oriented x3 - Psychiatric Exam Psychiatric exam: Normal Affect - Skin Skin Exam: Normal Color Results - Vital Signs Recent Vital Signs: Last Vital Signs Temp 97.7 F 02/22/17 07:49 Pulse 92 H 02/22/17 07:49 Resp 20 02/22/17 07:49 BP 160/73 H 02/22/17 07:49 Pulse Ox 100 02/22/17 07:49 - Labs Result Diagrams: 02/23/17 14:19 02/23/17 14:19 Labs: Laboratory Results - last 24 hr 02/21/17 02/21/17 02/21/17 14:14 17:27 19:57 Sodium 133 Potassium 4.0 Chloride 90 L Carbon Dioxide 24 Anion Gap 23 H BUN 51 H Creatinine 8.7 H* D Est GFR ( Amer) 6 Est GFR (Non-Af Amer) 5 POC Glucose (mg/dL) 202 H Random Glucose 284 H Calcium 7.6 L Total Bilirubin 0.7 AST 52 H D ALT 28 Alkaline Phosphatase 162 H Total Creatine Kinase 765 H CK-MB (Mass) 4.11 H Troponin I, Quant 0.0460 Total Protein 8.1 Albumin 4.1 Globulin 3.9 Albumin/Globulin Ratio 1.0 02/21/17 02/22/17 02/22/17 21:05 01:39 02:04 Sodium Potassium Chloride Carbon Dioxide Anion Gap BUN Creatinine Est GFR ( Amer) Est GFR (Non-Af Amer) POC Glucose (mg/dL) > 500 H* 154 H Random Glucose Calcium Total Bilirubin AST ALT Alkaline Phosphatase Total Creatine Kinase 797 H CK-MB (Mass) 2.99 Troponin I, Quant 0.0430 Total Protein Albumin Globulin Albumin/Globulin Ratio 02/22/17 02/22/17 07:15 11:22 Sodium Potassium Chloride Carbon Dioxide Anion Gap BUN Creatinine Est GFR ( Amer) Est GFR (Non-Af Amer) POC Glucose (mg/dL) 224 H 297 H Random Glucose Calcium Total Bilirubin AST ALT Alkaline Phosphatase Total Creatine Kinase CK-MB (Mass) Troponin I, Quant Total Protein Albumin Globulin Albumin/Globulin Ratio - EKG Data EKG Interpreted by: Myself Assessment & Plan (1) Hypertension associated with diabetes Assessment and Plan: medical therapy and blood pressure control Status: Chronic (2) Chest pain Assessment and Plan: check serial cardiac enzymes. appears pleurtic in nature. will schedule echocardiogram Status: Acute (3) Renal failure Assessment and Plan: contirbutor to ueremic pericarditis. check echocardiogram Status: Acute
--- NOTE | 2017-02-22 14:31 | CP.PCM.CON ---
History of Present Illness - History of Present Illness History of Present Illness: Patient seen examined. full consult to follow. will check echocardiogram. Past Patient History - Infectious Disease Hx of Infectious Diseases: None - Tetanus Immunizations Tetanus Immunization: Unknown - Past Medical History & Family History Past Medical History?: Yes - Past Social History Smoking Status: Never Smoked - CARDIAC Hx Congestive Heart Failure: Yes (Florid) Hx Hypercholesterolemia: Yes Hx Hypertension: Yes Hx Peripheral Edema: Yes - NEUROLOGICAL Hx Seizures: Yes - HEENT Hx HEENT Problems: Yes Hx Cataracts: Yes Hx Glaucoma: Yes - RENAL Hx Chronic Kidney Disease: Yes Hx Kidney Stones: Yes - ENDOCRINE/METABOLIC Hx Hyperthyroidism: Yes Hx Hypothyroidism: Yes - HEMATOLOGICAL/ONCOLOGICAL Hx Anemia: Yes - INTEGUMENTARY Hx Dermatological Problems: Yes Other/Comment: DRY ITCHY SKIN ;multiple/generalized dark spots on skin - MUSCULOSKELETAL/RHEUMATOLOGICAL Hx Fractures: Yes (Sep 2012 L foot) - GASTROINTESTINAL Hx Gall Bladder Disease: Yes (gallbladder removed) Hx Gastritis: Yes Hx Pancreatitis: Yes (chronic) - GENITOURINARY/GYNECOLOGICAL Hx Genitourinary Disorders: No - PSYCHIATRIC Hx Anxiety: Yes Hx Substance Use: No - SURGICAL HISTORY Hx Cholecystectomy: Yes Hx Coronary Stent: Yes - ANESTHESIA Hx Anesthesia: Yes Hx Anesthesia Reactions: No Hx Malignant Hyperthermia: No Has any member of the family had a problem w/ anesthesia?: No Meds Allergies/Adverse Reactions: Allergies Allergy/AdvReac Type Severity Reaction Status Date / Time ketorolac tromethamine Allergy RASH Verified 02/16/17 14:57 [From Toradol] latex Allergy RASH Verified 02/16/17 14:57 morphine Allergy RASH Verified 02/16/17 14:57 tramadol Allergy RASH Verified 02/16/17 14:57 - Medications Medications: Current Medications Calcium Acetate (Phoslo) 667 mg PO TID [facility] Last Admin: 02/22/17 13:27 Dose: Not Given Clonidine HCl (Catapres-Tts3 0.3 Mg/24 Hr) 1 patch TD Q7D@1000 [facility] Diphenhydramine HCl (Benadryl) 25 mg IVP Q3 PRN PRN Reason: Itching / Pruritus Last Admin: 02/22/17 13:43 Dose: 25 mg Docusate Sodium (Colace) 100 mg PO TID [facility] Last Admin: 02/22/17 13:44 Dose: 100 mg Epoetin James (Procrit) 10,000 [place] [facility] [place] Last Admin: 02/21/17 17:19 Dose: 10,000 unit Ferric Sodium Gluconate Complex (Ferrlecit) 125 mg IVPB [facility] [place] Stop: 02/27/17 14:31 Last Admin: 02/21/17 15:33 Dose: Not Given Heparin Sodium (Porcine) (Heparin) 5,000 units SC Q12 [facility] Last Admin: 02/22/17 10:05 Dose: Not Given Hydromorphone HCl (Dilaudid) 2 mg IVP Q3 PRN PRN Reason: Pain, moderate (4-7) Last Admin: 02/22/17 13:43 Dose: 2 mg Vancomycin HCl 0.5 gm/ Sodium (Chloride) 100 mls [facility]ulin Aspart (Novolog) 0 unit SC [facility] PRN Reason: Protocol Last Admin: 02/22/17 11:34 Dose: 3 unit Insulin Aspart (Novolog) 6 unit SC AC [facility] Last Admin: 02/22/17 11:35 Dose: 6 unit Insulin Detemir (Levemir) 12 unit SC Q12 [facility] Last Admin: 02/22/17 10:23 Dose: 12 unit Metoclopramide HCl (Reglan) 10 mg PO DAILY [facility] Last Admin: 02/22/17 10:22 Dose: 10 mg Nifedipine (Procardia Xl) 60 mg PO BID [facility] Last Admin: 02/22/17 10:23 Dose: 60 mg Ondansetron HCl (Zofran Inj) 4 mg IVP Q4H PRN PRN Reason: Nausea/Vomiting Last Admin: 02/22/17 01:49 Dose: 4 mg Pantoprazole Sodium (Protonix Ec Tab) 40 mg PO DAILY [facility] Last Admin: 02/22/17 10:22 Dose: 40 mg Polyethylene Glycol (Miralax) 17 gm PO BID [facility] Last Admin: 02/22/17 10:05 Dose: Not Given Trimethobenzamide HCl (Tigan) 200 mg IM Q6 PRN PRN Reason: Nausea/Vomiting Last Admin: 02/22/17 05:09 Dose: 200 mg Results - Vital Signs Recent Vital Signs: Last Vital Signs Temp 97.7 F 02/22/17 07:49 Pulse 92 H 02/22/17 07:49 Resp 20 02/22/17 07:49 BP 160/73 H 02/22/17 07:49 Pulse Ox 100 02/22/17 07:49 - Labs Result Diagrams: 02/21/17 14:14 02/21/17 14:14 Labs: Laboratory Results - last 24 hr 02/21/17 02/21/17 02/21/17 14:14 17:27 19:57 Sodium 133 Potassium 4.0 Chloride 90 L Carbon Dioxide 24 Anion Gap 23 H BUN 51 H Creatinine 8.7 H* D Est GFR ( Amer) 6 Est GFR (Non-Af Amer) 5 POC Glucose (mg/dL) 202 H Random Glucose 284 H Calcium 7.6 L Total Bilirubin 0.7 AST 52 H D ALT 28 Alkaline Phosphatase 162 H Total Creatine Kinase 765 H CK-MB (Mass) 4.11 H Troponin I, Quant 0.0460 Total Protein 8.1 Albumin 4.1 Globulin 3.9 Albumin/Globulin Ratio 1.0 02/21/17 02/22/17 02/22/17 21:05 01:39 02:04 Sodium Potassium Chloride Carbon Dioxide Anion Gap BUN Creatinine Est GFR ( Amer) Est GFR (Non-Af Amer) POC Glucose (mg/dL) > 500 H* 154 H Random Glucose Calcium Total Bilirubin AST ALT Alkaline Phosphatase Total Creatine Kinase 797 H CK-MB (Mass) 2.99 Troponin I, Quant 0.0430 Total Protein Albumin Globulin Albumin/Globulin Ratio 02/22/17 02/22/17 07:15 11:22 Sodium Potassium Chloride Carbon Dioxide Anion Gap BUN Creatinine Est GFR ( Amer) Est GFR (Non-Af Amer) POC Glucose (mg/dL) 224 H 297 H Random Glucose Calcium Total Bilirubin AST ALT Alkaline Phosphatase Total Creatine Kinase CK-MB (Mass) Troponin I, Quant Total Protein Albumin Globulin Albumin/Globulin Ratio
--- NOTE | 2017-02-22 14:47 | CP.PCM.PN ---
Subjective - Date & Time of Evaluation Date of Evaluation: 02/22/17 Time of Evaluation: 08:00 - Subjective Subjective: clinically same Objective - Vital Signs/Intake and Output Vital Signs (last 24 hours): Temp Pulse Resp BP Pulse Ox 97.7 F 92 H 20 160/73 H 100 02/22/17 07:49 02/22/17 07:49 02/22/17 07:49 02/22/17 07:49 02/22/17 07:49 Intake and Output: 02/22/17 02/22/17 06:59 18:59 Intake Total 120 Balance 120 - Medications Medications: Current Medications Calcium Acetate (Phoslo) 667 mg PO TID [facility] Last Admin: 02/22/17 13:27 Dose: Not Given Clonidine HCl (Catapres-Tts3 0.3 Mg/24 Hr) 1 patch TD Q7D@1000 [facility] Diphenhydramine HCl (Benadryl) 25 mg IVP Q3 PRN PRN Reason: Itching / Pruritus Last Admin: 02/22/17 13:43 Dose: 25 mg Docusate Sodium (Colace) 100 mg PO TID [facility] Last Admin: 02/22/17 13:44 Dose: 100 mg Epoetin James (Procrit) 10,000 unit IV [facility] [place] Last Admin: 02/21/17 17:19 Dose: 10,000 unit Ferric Sodium Gluconate Complex (Ferrlecit) 125 mg IVPB [facility] [place] Stop: 02/27/17 14:31 Last Admin: 02/21/17 15:33 Dose: Not Given Heparin Sodium (Porcine) (Heparin) 5,000 units SC Q12 [facility] Last Admin: 02/22/17 10:05 Dose: Not Given Hydromorphone HCl (Dilaudid) 2 mg IVP Q3 PRN PRN Reason: Pain, moderate (4-7) Last Admin: 02/22/17 13:43 Dose: 2 mg Vancomycin HCl 0.5 gm/ Sodium (Chloride) 100 mls @ 100 mls/hr IVPB [facility] [place] Insulin Aspart (Novolog) 0 unit SC ACHS [facility] PRN Reason: Protocol Last Admin: 02/22/17 11:34 Dose: 3 unit Insulin Aspart (Novolog) 6 unit SC AC [facility] Last Admin: 02/22/17 11:35 Dose: 6 unit Insulin Detemir (Levemir) 12 unit SC Q12 [facility] Last Admin: 02/22/17 10:23 Dose: 12 unit Metoclopramide HCl (Reglan) 10 mg PO DAILY [facility] Last Admin: 02/22/17 10:22 Dose: 10 mg Nifedipine (Procardia Xl) 60 mg PO BID [facility] Last Admin: 02/22/17 10:23 Dose: 60 mg Ondansetron HCl (Zofran Inj) 4 mg IVP Q4H PRN PRN Reason: Nausea/Vomiting Last Admin: 02/22/17 01:49 Dose: 4 mg Pantoprazole Sodium (Protonix Ec Tab) 40 mg PO DAILY [facility] Last Admin: 02/22/17 10:22 Dose: 40 mg Polyethylene Glycol (Miralax) 17 gm PO BID [facility] Last Admin: 02/22/17 10:05 Dose: Not Given Trimethobenzamide HCl (Tigan) 200 mg IM Q6 PRN PRN Reason: Nausea/Vomiting Last Admin: 02/22/17 05:09 Dose: 200 mg - Labs Labs: 02/21/17 14:14 02/21/17 14:14 PT 13.3 SECONDS (9.7-12.2) H 02/17/17 07:53 INR 1.2 02/17/17 07:53 - Constitutional Appears: Well - Head Exam Head Exam: ATRAUMATIC, NORMAL INSPECTION, NORMOCEPHALIC - Eye Exam Eye Exam: EOMI, Normal appearance, PERRL Pupil Exam: NORMAL ACCOMODATION, PERRL - ENT Exam ENT Exam: Mucous Membranes Moist, Normal Exam - Neck Exam Neck Exam: Full ROM, Normal Inspection. absent: Lymphadenopathy - Respiratory Exam Respiratory Exam: Decreased Breath Sounds - Cardiovascular Exam Cardiovascular Exam: REGULAR RHYTHM, +S1, +S2 - GI/Abdominal Exam GI & Abdominal Exam: Soft, Diminished Bowel Sounds - Rectal Exam Rectal Exam: Deferred
--- NOTE | 2017-02-22 18:33 | CP.PCM.PN ---
Subjective - Date & Time of Evaluation Date of Evaluation: 02/22/17 Time of Evaluation: 08:00 - Subjective Subjective: RECURRENTR MRSA BACTEREMIA AND SEPSIS DR IZQUIERDO TO CHECK ECHO DR BRIZUELA ON BOARD FOR RENAL > ACCESS DEVICE INFECTION ? HAS HX OF OM CLAVICLE FROM BLOOD [facility] INFECTION TREATED IN [place] Objective - Vital Signs/Intake and Output Vital Signs (last 24 hours): Temp Pulse Resp BP Pulse Ox 98 F 90 20 146/71 100 02/22/17 16:00 02/22/17 16:00 02/22/17 16:00 02/22/17 16:00 02/22/17 16:00 Intake and Output: 02/22/17 02/22/17 06:59 18:59 Intake Total 120 700 Balance 120 700 - Medications Medications: Current Medications Calcium Acetate (Phoslo) 667 mg PO TID [facility] Last Admin: 02/22/17 13:27 Dose: Not Given Clonidine HCl (Catapres-Tts3 0.3 Mg/24 Hr) 1 patch TD Q7D@1000 [facility] Diphenhydramine HCl (Benadryl) 25 mg IVP Q3 PRN PRN Reason: Itching / Pruritus Last Admin: 02/22/17 17:25 Dose: 25 mg Docusate Sodium (Colace) 100 mg PO TID [facility] Last Admin: 02/22/17 17:30 Dose: 100 mg Epoetin James (Procrit) 10,000 unit IV [facility] [place] Last Admin: 02/21/17 17:19 Dose: 10,000 unit Ferric Sodium Gluconate Complex (Ferrlecit) 125 mg IVPB [facility] [place] Stop: 02/27/17 14:31 Last Admin: 02/21/17 15:33 Dose: Not Given Heparin Sodium (Porcine) (Heparin) 5,000 units SC Q12 [facility] Last Admin: 02/22/17 10:05 Dose: Not Given Hydromorphone HCl (Dilaudid) 2 mg IVP Q3 PRN PRN Reason: Pain, moderate (4-7) Last Admin: 02/22/17 17:27 Dose: 2 mg Vancomycin HCl 0.5 gm/ Sodium (Chloride) 100 mls @ 100 mls/hr IVPB [facility] [place] Insulin Aspart (Novolog) 0 unit SC ACHS [facility] PRN Reason: Protocol Last Admin: 02/22/17 16:48 Dose: Not Given Insulin Aspart (Novolog) 6 unit SC AC [facility] Last Admin: 02/22/17 11:35 Dose: 6 unit Insulin Detemir (Levemir) 12 unit SC Q12 [facility] Last Admin: 02/22/17 10:23 Dose: 12 unit Metoclopramide HCl (Reglan) 10 mg PO DAILY [facility] Last Admin: 02/22/17 10:22 Dose: 10 mg Nifedipine (Procardia Xl) 60 mg PO BID [facility] Last Admin: 02/22/17 17:30 Dose: 60 mg Ondansetron HCl (Zofran Inj) 4 mg IVP Q4H PRN PRN Reason: Nausea/Vomiting Last Admin: 02/22/17 01:49 Dose: 4 mg Pantoprazole Sodium (Protonix Ec Tab) 40 mg PO DAILY [facility] Last Admin: 02/22/17 10:22 Dose: 40 mg Polyethylene Glycol (Miralax) 17 gm PO BID [facility] Last Admin: 02/22/17 10:05 Dose: Not Given Trimethobenzamide HCl (Tigan) 200 mg IM Q6 PRN PRN Reason: Nausea/Vomiting Last Admin: 02/22/17 05:09 Dose: 200 mg - Labs Labs: 02/21/17 14:14 02/21/17 14:14 PT 13.3 SECONDS (9.7-12.2) H 02/17/17 07:53 INR 1.2 02/17/17 07:53 - Constitutional Appears: Non-toxic, Cachectic - Head Exam Head Exam: NORMOCEPHALIC - Eye Exam Eye Exam: PERRL - ENT Exam ENT Exam: Mucous Membranes Dry - Neck Exam Neck Exam: absent: Lymphadenopathy - Respiratory Exam Respiratory Exam: Decreased Breath Sounds - Cardiovascular Exam Cardiovascular Exam: REGULAR RHYTHM - GI/Abdominal Exam GI & Abdominal Exam: Distended - Rectal Exam Rectal Exam: Deferred Assessment and Plan - Assessment and Plan (Free Text) Plan: R/O ENDOCARDITIS
--- NOTE | 2017-02-22 19:59 | CP.PCM.PN ---
Subjective - Date & Time of Evaluation Date of Evaluation: 02/22/17 Time of Evaluation: 14:00 - Subjective Subjective: SEEN ON RENAL F/U ON HD M W F AND SAT ANEMIA IS GETTING BETTER SLOWLY AND GRADUALLY C/O LOCAL PAIN C/O ABDO PAIN .. NAUSEA Objective - Vital Signs/Intake and Output Vital Signs (last 24 hours): Temp Pulse Resp BP Pulse Ox 98 F 90 20 146/71 100 02/22/17 16:00 02/22/17 16:00 02/22/17 16:00 02/22/17 16:00 02/22/17 16:00 Intake and Output: 02/22/17 02/23/17 18:59 06:59 Intake Total 700 Balance 700 - Medications Medications: Current Medications Calcium Acetate (Phoslo) 667 mg PO TID [facility] Last Admin: 02/22/17 19:10 Dose: Not Given Clonidine HCl (Catapres-Tts3 0.3 Mg/24 Hr) 1 patch TD Q7D@1000 [facility] Diphenhydramine HCl (Benadryl) 25 mg IVP Q3 PRN PRN Reason: Itching / Pruritus Last Admin: 02/22/17 17:25 Dose: 25 mg Docusate Sodium (Colace) 100 mg PO TID [facility] Last Admin: 02/22/17 17:30 Dose: 100 mg Epoetin James (Procrit) 10,000 unit IV [facility] Last Admin: 02/21/17 17:19 Dose: 10,000 unit Ferric Sodium Gluconate Complex (Ferrlecit) 125 mg IVPB [facility] Stop: 02/27/17 14:31 Last Admin: 02/21/17 15:33 Dose: Not Given Heparin Sodium (Porcine) (Heparin) 5,000 units SC Q12 [facility] Last Admin: 02/22/17 10:05 Dose: Not Given Hydromorphone HCl (Dilaudid) 2 mg IVP Q3 PRN PRN Reason: Pain, moderate (4-7) Last Admin: 02/22/17 17:27 Dose: 2 mg Vancomycin HCl 0.5 gm/ Sodium (Chloride) 100 mls @ 100 mls/hr IVPB [facility] Insulin Aspart (Novolog) 0 unit SC ACHS [facility] PRN Reason: Protocol Last Admin: 02/22/17 16:48 Dose: Not Given Insulin Aspart (Novolog) 6 unit SC AC [facility] Last Admin: 02/22/17 16:30 Dose: Not Given Insulin Detemir (Levemir) 12 unit SC Q12 [facility] Last Admin: 02/22/17 10:23 Dose: 12 unit Metoclopramide HCl (Reglan) 10 mg PO DAILY [facility] Last Admin: 02/22/17 10:22 Dose: 10 mg Nifedipine (Procardia Xl) 60 mg PO BID [facility] Last Admin: 02/22/17 17:30 Dose: 60 mg Ondansetron HCl (Zofran Inj) 4 mg IVP Q4H PRN PRN Reason: Nausea/Vomiting Last Admin: 02/22/17 01:49 Dose: 4 mg Pantoprazole Sodium (Protonix Ec Tab) 40 mg PO DAILY [facility] Last Admin: 02/22/17 10:22 Dose: 40 mg Polyethylene Glycol (Miralax) 17 gm PO BID [facility] Last Admin: 02/22/17 19:10 Dose: Not Given Trimethobenzamide HCl (Tigan) 200 mg IM Q6 PRN PRN Reason: Nausea/Vomiting Last Admin: 02/22/17 05:09 Dose: 200 mg - Labs Labs: 02/21/17 14:14 02/21/17 14:14 PT 13.3 SECONDS (9.7-12.2) H 02/17/17 07:53 INR 1.2 02/17/17 07:53 Assessment and Plan - Assessment and Plan (Free Text) Assessment: ESRD ON HD M W F AND SAT ANEMIA OF CKD .. H/H IMPROVING SEPSIS ON IVAB MULTIPLE CO MORBIDITIES P : C/O CURRENT CARE
--- NOTE | 2017-02-23 00:02 | CARD ---
APPROVED REPORT EXAM: Two-dimensional and M-mode echocardiogram with Doppler and color Doppler. Other Information Quality : GoodRhythm : INDICATION Dyspnea Congestive Heart Failure FEVER, POSITE BLOOD CULTURE RISK FACTORS Hypertension Hyperlipidemia Diabetes M-Mode DIMENSIONS RVDd2.53 (2.1-3.2cm)Left Atrium (MM)3.55 (2.5-4.0cm) IVSd1.21 (0.7-1.1cm)Aortic Root3.28 (2.2-3.7cm) LVDd5.69 (4.0-5.6cm)Aortic Cusp Exc.1.87 (1.5-2.0cm) PWd1.25 (0.7-1.1cm)FS (%) 26 % LVDs4.20 (2.0-3.8cm)LVEF (%)51 (>50%) Mitral Valve MV E Sllcpbwo358.8cm/sMV A Lxtthfaa78.1cm/sE/A ratio1.3 TDI E/Lateral E'0.0E/Medial E'0.0 Tricuspid Valve TR Peak Vgetxrce802cw/sTR Peak Gr.[id number] LEFT VENTRICLE The left ventricle is normal size. There is normal left ventricular wall thickness. Left ventricle systolic function is normal. The Ejection Fraction is 55-60%. There is normal LV segmental wall motion. The left ventricular diastolic function is normal. There is no ventricular septal defect visualized. RIGHT VENTRICLE The right ventricle is normal size. The right ventricular systolic function is normal. ATRIA The left atrium size is normal. The right atrium size is normal. AORTIC VALVE The aortic valve is normal in structure. The aortic valve is tri-cuspid. No aortic regurgitation is present. There is no aortic valvular stenosis. MITRAL VALVE The mitral valve is normal in structure. There is no evidence of mitral valve prolapse. There is no mitral valve regurgitation noted. TRICUSPID VALVE The tricuspid valve is normal in structure. There is trace tricuspid regurgitation. Right ventricular systolic pressure is estimated at less than 30 mmHg. There is no pulmonary hypertension. PULMONIC VALVE The pulmonary valve is normal in structure. There is no pulmonic valvular regurgitation. GREAT VESSELS The IVC is normal in size and collapses >50% with inspiration. PERICARDIAL EFFUSION There is no pericardial effusion. <Conclusion> Grossly Normal study. However KAMRAN is more specific to evaluate for vegetations.
[2017-02-23] MEDS: DiphenhydrAMINE 50 mg/ml Inj IVP PRN ×9 (01:19→22:55)
[2017-02-23] MEDS: (Novolog) Insulin Aspart, Recombinant 100 u/ml 10 ml vial SC SCH ×8 (07:40→22:22)
--- NOTE | 2017-02-23 08:15 | CP.PCM.PN ---
Subjective - Date & Time of Evaluation Date of Evaluation: 02/23/17 Time of Evaluation: 08:15 - Subjective Subjective: patient is s/p echocardiogram. no specific new complaints Objective - Vital Signs/Intake and Output Vital Signs (last 24 hours): Temp Pulse Resp BP Pulse Ox 98.2 F 108 H 20 185/86 H 98 02/23/17 07:51 02/23/17 07:51 02/23/17 07:51 02/23/17 07:51 02/23/17 07:51 Intake and Output: 02/23/17 02/23/17 06:59 18:59 Intake Total 240 Balance 240 - Medications Medications: Current Medications Calcium Acetate (Phoslo) 667 mg PO TID [facility] Last Admin: 02/22/17 19:10 Dose: Not Given Clonidine HCl (Catapres-Tts3 0.3 Mg/24 Hr) 1 patch TD Q7D@1000 [facility] Diphenhydramine HCl (Benadryl) 25 mg IVP Q3 PRN PRN Reason: Itching / Pruritus Last Admin: 02/23/17 07:45 Dose: 25 mg Docusate Sodium (Colace) 100 mg PO TID [facility] Last Admin: 02/22/17 17:30 Dose: 100 mg Epoetin James (Procrit) 10,000 unit IV [facility] [place] Last Admin: 02/21/17 17:19 Dose: 10,000 unit Ferric Sodium Gluconate Complex (Ferrlecit) 125 mg IVPB [facility] Stop: 02/27/17 14:31 Last Admin: 02/21/17 15:33 Dose: Not Given Heparin Sodium (Porcine) (Heparin) 5,000 units SC Q12 [facility] Last Admin: 02/22/17 21:21 Dose: Not Given Hydromorphone HCl (Dilaudid) 2 mg IVP Q3 PRN PRN Reason: Pain, moderate (4-7) Last Admin: 02/23/17 07:46 Dose: 2 mg Vancomycin HCl 0.5 gm/ Sodium (Chloride) 100 mls @ 100 mls/hr IVPB [facility] [place] Insulin Aspart (Novolog) 0 unit SC ACHS [facility] PRN Reason: Protocol Last Admin: 02/23/17 07:40 Dose: Not Given Insulin Aspart (Novolog) 6 unit SC [facility] Last Admin: 02/23/17 07:40 Dose: Not Given Insulin Detemir (Levemir) 12 unit SC Q12 [facility] Last Admin: 02/22/17 21:17 Dose: 12 unit Metoclopramide HCl (Reglan) 10 mg PO DAILY [facility] Last Admin: 02/22/17 10:22 Dose: 10 mg Nifedipine (Procardia Xl) 60 mg PO BID [facility] Last Admin: 02/22/17 17:30 Dose: 60 mg Ondansetron HCl (Zofran Inj) 4 mg IVP Q4H PRN PRN Reason: Nausea/Vomiting Last Admin: 02/22/17 01:49 Dose: 4 mg Pantoprazole Sodium (Protonix Ec Tab) 40 mg PO DAILY [facility] Last Admin: 02/22/17 10:22 Dose: 40 mg Polyethylene Glycol (Miralax) 17 gm PO BID [facility] Last Admin: 02/22/17 19:10 Dose: Not Given Trimethobenzamide HCl (Tigan) 200 mg IM Q6 PRN PRN Reason: Nausea/Vomiting Last Admin: 02/22/17 05:09 Dose: 200 mg - Labs Labs: 02/21/17 14:14 02/21/17 14:14 PT 13.3 SECONDS (9.7-12.2) H 02/17/17 07:53 INR 1.2 02/17/17 07:53 - Constitutional Appears: Non-toxic - Head Exam Head Exam: NORMAL INSPECTION - Eye Exam Eye Exam: Normal appearance - ENT Exam ENT Exam: Mucous Membranes Moist - Neck Exam Neck Exam: Full ROM - Respiratory Exam Respiratory Exam: Decreased Breath Sounds - Cardiovascular Exam Cardiovascular Exam: REGULAR RHYTHM - GI/Abdominal Exam GI & Abdominal Exam: Normal Bowel Sounds - Rectal Exam Rectal Exam: Deferred - Extremities Exam Extremities Exam: Pedal Edema - Back Exam Back Exam: NORMAL INSPECTION - Neurological Exam Neurological Exam: Alert - Psychiatric Exam Psychiatric exam: Normal Affect - Skin Skin Exam: Normal Color Assessment and Plan (1) Chest pain Assessment & Plan: echocardiogram reviewed. normal pericardial function and ventricular function. unlikely cardiac cause of symptoms. Status: Acute (2) Hypertension Assessment & Plan: blood pressue control Status: Chronic
--- NOTE | 2017-02-23 09:33 | CP.PCM.PN ---
Subjective - Date & Time of Evaluation Date of Evaluation: 02/23/17 Time of Evaluation: 08:00 - Subjective Subjective: clinically same Objective - Vital Signs/Intake and Output Vital Signs (last 24 hours): Temp Pulse Resp BP Pulse Ox 98.2 F 108 H 20 185/86 H 98 02/23/17 07:51 02/23/17 07:51 02/23/17 07:51 02/23/17 07:51 02/23/17 07:51 Intake and Output: 02/23/17 02/23/17 06:59 18:59 Intake Total 240 Balance 240 - Medications Medications: Current Medications Calcium Acetate (Phoslo) 667 mg PO TID [facility] Last Admin: 02/22/17 19:10 Dose: Not Given Clonidine HCl (Catapres-Tts3 0.3 Mg/24 Hr) 1 patch TD Q7D@1000 [facility] Diphenhydramine HCl (Benadryl) 25 mg IVP Q3 PRN PRN Reason: Itching / Pruritus Last Admin: 02/23/17 07:45 Dose: 25 mg Docusate Sodium (Colace) 100 mg PO TID [facility] Last Admin: 02/22/17 17:30 Dose: 100 mg Epoetin James (Procrit) 10,000 unit [place] [facility] Last Admin: 02/21/17 17:19 Dose: 10,000 unit Ferric Sodium Gluconate Complex (Ferrlecit) 125 mg IVPB [facility] Stop: 02/27/17 14:31 Last Admin: 02/21/17 15:33 Dose: Not Given Heparin Sodium (Porcine) (Heparin) 5,000 units SC Q12 [facility] Last Admin: 02/22/17 21:21 Dose: Not Given Hydromorphone HCl (Dilaudid) 2 mg IVP Q3 PRN PRN Reason: Pain, moderate (4-7) Last Admin: 02/23/17 07:46 Dose: 2 mg Vancomycin HCl 0.5 gm/ Sodium (Chloride) 100 mls @ 100 mls/hr IVPB [facility] Insulin Aspart (Novolog) 0 unit SC ACHS [facility] PRN Reason: Protocol Last Admin: 02/23/17 07:40 Dose: Not Given Insulin Aspart (Novolog) 6 unit SC AC [facility] Last Admin: 02/23/17 07:40 Dose: Not Given Insulin Detemir (Levemir) 12 unit SC Q12 [facility] Last Admin: 02/22/17 21:17 Dose: 12 unit Metoclopramide HCl (Reglan) 10 mg PO DAILY [facility] Last Admin: 02/22/17 10:22 Dose: 10 mg Nifedipine (Procardia Xl) 60 mg PO BID [facility] Last Admin: 02/22/17 17:30 Dose: 60 mg Ondansetron HCl (Zofran Inj) 4 mg IVP Q4H PRN PRN Reason: Nausea/Vomiting Last Admin: 02/22/17 01:49 Dose: 4 mg Pantoprazole Sodium (Protonix Ec Tab) 40 mg PO DAILY [facility] Last Admin: 02/22/17 10:22 Dose: 40 mg Polyethylene Glycol (Miralax) 17 gm PO BID [facility] Last Admin: 02/22/17 19:10 Dose: Not Given Trimethobenzamide HCl (Tigan) 200 mg IM Q6 PRN PRN Reason: Nausea/Vomiting Last Admin: 02/22/17 05:09 Dose: 200 mg - Labs Labs: 02/21/17 14:14 02/21/17 14:14 PT 13.3 SECONDS (9.7-12.2) H 02/17/17 07:53 INR 1.2 02/17/17 07:53 - Constitutional Appears: Well - Head Exam Head Exam: ATRAUMATIC, NORMAL INSPECTION, NORMOCEPHALIC - Eye Exam Eye Exam: EOMI, Normal appearance, PERRL Pupil Exam: NORMAL ACCOMODATION, PERRL - ENT Exam ENT Exam: Mucous Membranes Moist, Normal Exam - Neck Exam Neck Exam: Full ROM, Normal Inspection. absent: Lymphadenopathy - Respiratory Exam Respiratory Exam: Decreased Breath Sounds - Cardiovascular Exam Cardiovascular Exam: REGULAR RHYTHM, +S1, +S2 - GI/Abdominal Exam GI & Abdominal Exam: Soft, Diminished Bowel Sounds - Rectal Exam Rectal Exam: Deferred
[2017-02-23] MEDS: Insulin Detemir 100 units/ml Vial (Levemir) SC SCH ×2 (10:45→22:24)
[2017-02-23] MEDS: Pantoprazole 40 mg EC Tab PO SCH (10:45)
[2017-02-23] MEDS: NIFEdipine 60 mg ER Tab PO SCH ×2 (10:49→18:50)
[2017-02-23] MEDS: POLYETHYLENE GLYCOL 3350 17 GM/Dose PACKET PO SCH ×2 (10:49→18:50)
--- NOTE | 2017-02-23 11:24 | CT ---
PROCEDURE: CT left shoulder HISTORY: lt.shoulder swelling COMPARISON: Not available TECHNIQUE: 2.5 mm contiguous axial sections were acquired through the left shoulder, including the upper left anterior chest wall. Sagittal and coronal images were reformatted from the axial scan. FINDINGS: There is no acute fracture. Glenohumeral and acromioclavicular articulations appear unremarkable. There is tiny sclerotic focus in the left humeral head likely a small bone island. There is no abnormal soft tissue density about the left sternoclavicular joint. There is gross destruction of the left side of the sternum at the sternoclavicular articulation with some bony fragmentation. There is some erosion of the medial articular cortical surface of the left clavicle. There is vague central low attenuation within the abnormal soft tissue density about the sternoclavicular joint measuring approximately 2.2 x 3.0 cm. Evaluation is limited by the absence of intravenous contrast administration. There is questionable abnormal soft tissue density in the anterior mediastinum which may represent extension of this soft tissue density from the sternoclavicular articulation into the anterior mediastinum. Again, contrast-enhanced CT would be of benefit for further evaluation. The findings are consistent with infectious sternoclavicular arthritis. Neoplasm is considered far less likely. There are numerous small and mildly enlarged supraclavicular lymph nodes noted on the left side. 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 Gross destruction of the left side of the manubrium sternum with bony fragmentation. Articular erosion/ destruction of the medial left clavicular head. Questionable soft tissue extension into the anterior mediastinum. Evaluation limited by the absence of intravenous contrast administration. Extensive abnormal soft tissue surrounding the sternoclavicular articulation with ill-defined central low-attenuation up to 3.2 cm in diameter suggestive of abscess. Left supraclavicular lymphadenopathy.
[2017-02-23 14:24] LABS: BASO # 0.2 K/uL (0.0-0.2); BASO % 1.6 % (0.0-2.0); EOS # 0.9 K/uL (0.0-0.7); EOS % 8.7 % (0.0-4.0); HEMOGLOBIN 7.9 g/dL (11.0-16.0); LYMPH # 1.3 K/uL (1.0-4.3); LYMPH % 13.2 % (20.0-40.0); MEAN CELL VOLUME 96.5 fL (81.0-99.0); MEAN CORPUSCULAR HEMOGLOBIN 31.9 pg (27.0-31.0); MEAN CORPUSCULAR HGB CONC 33.1 g/dL (33.0-37.0); MONO # 0.8 K/uL (0.0-0.8); MONO % 7.9 % (0.0-10.0); NEUT # 6.9 K/uL (1.8-7.0); NEUT % 68.6 % (50.0-75.0); RBC 2.46 Mil/uL (3.80-5.20); RED CELL DISTRIBUTION WIDTH 15.9 % (11.5-14.5); WHITE BLOOD COUNT 10.1 K/uL (4.8-10.8)
[2017-02-23 14:32] LABS: ALBUMIN 3.9 g/dL (3.5-5.0)
[2017-02-23 14:39] LABS: CALCIUM 7.1 mg/dl (8.6-10.4)
--- NOTE | 2017-02-23 15:14 | CP.PCM.PN ---
Subjective - Date & Time of Evaluation Date of Evaluation: 02/23/17 Time of Evaluation: 09:00 - Subjective Subjective: ECHO UNREMARKABLE MRSA IN BLOOD MAY NEED T DO CERETEC SCAN- R/O INFECTED VASCULAR DEVICE CONT IV RX PER DR BRIZUELA Objective - Vital Signs/Intake and Output Vital Signs (last 24 hours): Temp Pulse Resp BP Pulse Ox 98.2 F 108 H 20 185/86 H 98 02/23/17 07:51 02/23/17 07:51 02/23/17 07:51 02/23/17 07:51 02/23/17 07:51 Intake and Output: 02/23/17 02/23/17 06:59 18:59 Intake Total 240 Balance 240 - Medications Medications: Current Medications Calcium Acetate (Phoslo) 667 mg PO TID [facility] Last Admin: 02/23/17 14:17 Dose: Not Given Clonidine HCl (Catapres-Tts3 0.3 Mg/24 Hr) 1 patch TD Q7D@1000 [facility] Last Admin: 02/23/17 10:49 Dose: 1 patch Diphenhydramine HCl (Benadryl) 25 mg IVP Q3 PRN PRN Reason: Itching / Pruritus Last Admin: 02/23/17 13:37 Dose: 25 mg Diphenhydramine HCl (Benadryl) 25 mg IVP [facility] PRN PRN Reason: Itching / Pruritus Last Admin: 02/23/17 15:02 Dose: 25 mg Docusate Sodium (Colace) 100 mg PO TID [facility] Last Admin: 02/23/17 14:17 Dose: Not Given Epoetin James (Procrit) 10,000 unit IV [facility] [place] Last Admin: 02/21/17 17:19 Dose: 10,000 unit Ferric Sodium Gluconate Complex (Ferrlecit) 125 mg IVPB [facility] [place] Stop: 02/27/17 14:31 Last Admin: 02/21/17 15:33 Dose: Not Given Heparin Sodium (Porcine) (Heparin) 5,000 units SC Q12 [facility] Last Admin: 02/23/17 10:16 Dose: Not Given Hydromorphone HCl (Dilaudid) 2 mg IVP Q3 PRN PRN Reason: Pain, moderate (4-7) Last Admin: 02/23/17 13:37 Dose: 2 mg Vancomycin HCl 0.5 gm/ Sodium (Chloride) 100 mls @ 100 mls/hr IVPB [facility] Insulin Aspart (Novolog) 0 unit SC ACHS [facility] PRN Reason: Protocol Last Admin: 02/23/17 11:37 Dose: Not Given Insulin Aspart (Novolog) 6 unit SC AC [facility] Last Admin: 02/23/17 12:24 Dose: 6 unit Insulin Detemir (Levemir) 12 unit SC Q12 [facility] Last Admin: 02/23/17 10:45 Dose: 12 unit Metoclopramide HCl (Reglan) 10 mg PO DAILY [facility] Last Admin: 02/23/17 11:10 Dose: Not Given Nifedipine (Procardia Xl) 60 mg PO BID [facility] Last Admin: 02/23/17 10:49 Dose: Not Given Ondansetron HCl (Zofran Inj) 4 mg IVP Q4H PRN PRN Reason: Nausea/Vomiting Last Admin: 02/22/17 01:49 Dose: 4 mg Pantoprazole Sodium (Protonix Ec Tab) 40 mg PO DAILY [facility] Last Admin: 02/23/17 10:45 Dose: 40 mg Polyethylene Glycol (Miralax) 17 gm PO BID [facility] Last Admin: 02/23/17 10:49 Dose: Not Given Trimethobenzamide HCl (Tigan) 200 mg IM Q6 PRN PRN Reason: Nausea/Vomiting Last Admin: 02/22/17 05:09 Dose: 200 mg - Labs Labs: 02/23/17 14:19 02/23/17 14:19 PT 13.3 SECONDS (9.7-12.2) H 02/17/17 07:53 INR 1.2 02/17/17 07:53
[2017-02-23] MEDS: Epoetin Alfa 10,000 unit/ml Dialysis IV SCH (16:34)
[2017-02-23] MEDS: Ferric Sodium Gluconat Complex 62.5 mg/5 ml Vial IVPB SCH (16:35)
[2017-02-23] MEDS: Vancomycin 0.5 GM in Sodium Chloride 0.9% 100 ML IVPB SCH ×2 (18:05→18:10)
--- NOTE | 2017-02-23 18:58 | CP.PCM.PN ---
Subjective - Date & Time of Evaluation Date of Evaluation: 02/23/17 Time of Evaluation: 14:00 - Subjective Subjective: SEEN ON RENAL F/U SEEN ON HD STILL WITH ABDO PAIN ALL ABOVE NOTES READ Objective - Vital Signs/Intake and Output Vital Signs (last 24 hours): Temp Pulse Resp BP Pulse Ox 97.5 F L 118 H 20 123/64 98 02/23/17 18:00 02/23/17 18:00 02/23/17 18:00 02/23/17 18:00 02/23/17 18:00 Intake and Output: 02/23/17 02/23/17 06:59 18:59 Intake Total 240 450 Balance 240 450 - Medications Medications: Current Medications Calcium Acetate (Phoslo) 667 mg PO TID [facility] Last Admin: 02/23/17 14:17 Dose: Not Given Clonidine HCl (Catapres-Tts3 0.3 Mg/24 Hr) 1 patch TD Q7D@1000 [facility] Last Admin: 02/23/17 10:49 Dose: 1 patch Diphenhydramine HCl (Benadryl) 25 mg IVP Q3 PRN PRN Reason: Itching / Pruritus Last Admin: 02/23/17 16:47 Dose: 25 mg Diphenhydramine HCl (Benadryl) 25 mg IVP [facility] PRN PRN Reason: Itching / Pruritus Last Admin: 02/23/17 15:02 Dose: 25 mg Docusate Sodium (Colace) 100 mg PO TID [facility] Last Admin: 02/23/17 14:17 Dose: Not Given Epoetin James (Procrit) 10,000 unit IV [facility] [place] Last Admin: 02/23/17 16:34 Dose: 10,000 unit Ferric Sodium Gluconate Complex (Ferrlecit) 125 mg IVPB [facility] [place] Stop: 02/27/17 14:31 Last Admin: 02/23/17 16:35 Dose: 125 mg Heparin Sodium (Porcine) (Heparin) 5,000 units SC Q12 [facility] Last Admin: 02/23/17 10:16 Dose: Not Given Hydromorphone HCl (Dilaudid) 2 mg IVP Q3 PRN PRN Reason: Pain, moderate (4-7) Last Admin: 02/23/17 16:46 Dose: 2 mg Vancomycin HCl 0.5 gm/ Sodium (Chloride) 100 mls @ 100 mls/hr IVPB MWF [facility] Vancomycin HCl 1 gm/ Sodium (Chloride) 250 mls @ 166.7 mls/hr IVPB [facility] [place] Insulin Aspart (Novolog) 0 unit SC ACHS [facility] PRN Reason: Protocol Last Admin: 02/23/17 11:37 Dose: Not Given Insulin Aspart (Novolog) 6 unit SC AC [facility] Last Admin: 02/23/17 12:24 Dose: 6 unit Insulin Detemir (Levemir) 12 unit SC Q12 [facility] Last Admin: 02/23/17 10:45 Dose: 12 unit Metoclopramide HCl (Reglan) 10 mg PO DAILY [facility] Last Admin: 02/23/17 11:10 Dose: Not Given Nifedipine (Procardia Xl) 60 mg PO BID [facility] Last Admin: 02/23/17 10:49 Dose: Not Given Ondansetron HCl (Zofran Inj) 4 mg IVP Q4H PRN PRN Reason: Nausea/Vomiting Last Admin: 02/22/17 01:49 Dose: 4 mg Pantoprazole Sodium (Protonix Ec Tab) 40 mg PO DAILY [facility] Last Admin: 02/23/17 10:45 Dose: 40 mg Polyethylene Glycol (Miralax) 17 gm PO BID [facility] Last Admin: 02/23/17 10:49 Dose: Not Given Trimethobenzamide HCl (Tigan) 200 mg IM Q6 PRN PRN Reason: Nausea/Vomiting Last Admin: 02/22/17 05:09 Dose: 200 mg - Labs Labs: 02/23/17 14:19 02/23/17 14:19 PT 13.3 SECONDS (9.7-12.2) H 02/17/17 07:53 INR 1.2 02/17/17 07:53 Assessment and Plan - Assessment and Plan (Free Text) Assessment: ESRD ON HD M W F AND SAT .. TO BE C/O ANEMIA OF CKD .. ON EPO AND FERRLICIT SEPSIS ON IVAB MULTIPLE CO MORBIDITIES P : C/O CURRENT CARE
[2017-02-24] MEDS: DiphenhydrAMINE 50 mg/ml Inj IVP PRN ×9 (01:55→20:30)
[2017-02-24] MEDS: (Novolog) Insulin Aspart, Recombinant 100 u/ml 10 ml vial SC SCH ×7 (07:30→22:30)
[2017-02-24] MEDS: NIFEdipine 60 mg ER Tab PO SCH ×2 (09:54→18:02)
[2017-02-24] MEDS: Pantoprazole 40 mg EC Tab PO SCH (09:55)
[2017-02-24] MEDS: Insulin Detemir 100 units/ml Vial (Levemir) SC SCH ×2 (10:06→22:30)
[2017-02-24] MEDS: POLYETHYLENE GLYCOL 3350 17 GM/Dose PACKET PO SCH ×2 (10:06→17:54)
--- NOTE | 2017-02-24 14:30 | CP.PCM.PN ---
Subjective - Date & Time of Evaluation Date of Evaluation: 02/24/17 Time of Evaluation: 07:40 - Subjective Subjective: clinically same Objective - Vital Signs/Intake and Output Vital Signs (last 24 hours): Temp Pulse Resp BP Pulse Ox 97.5 F L 107 H 20 98/56 L 99 02/24/17 08:26 02/24/17 08:26 02/24/17 08:26 02/24/17 08:26 02/24/17 08:26 Intake and Output: 02/24/17 02/24/17 06:59 18:59 Intake Total 730 Balance 730 - Medications Medications: Current Medications Calcium Acetate (Phoslo) 667 mg PO TID [facility] Last Admin: 02/24/17 14:07 Dose: Not Given Clonidine HCl (Catapres-Tts3 0.3 Mg/24 Hr) 1 patch TD Q7D@1000 [facility] Last Admin: 02/23/17 10:49 Dose: 1 patch Diphenhydramine HCl (Benadryl) 25 mg IVP Q3 PRN PRN Reason: Itching / Pruritus Last Admin: 02/24/17 14:09 Dose: 25 mg Diphenhydramine HCl (Benadryl) 25 mg IVP [facility] PRN PRN Reason: Itching / Pruritus Last Admin: 02/23/17 15:02 Dose: 25 mg Docusate Sodium (Colace) 100 mg PO TID [facility] Last Admin: 02/24/17 14:06 Dose: Not Given Epoetin James (Procrit) 10,000 [place] [facility] [place] Last Admin: 02/23/17 16:34 Dose: 10,000 unit Ferric Sodium Gluconate Complex (Ferrlecit) 125 mg [place] [facility] Stop: 02/27/17 14:31 Last Admin: 02/23/17 16:35 Dose: 125 mg Hydromorphone HCl (Dilaudid) 2 mg IVP Q3 PRN PRN Reason: Pain, moderate (4-7) Last Admin: 02/24/17 14:01 Dose: 2 mg Vancomycin HCl 0.5 gm/ Sodium (Chloride) 100 [facility]ls [facility] Last Admin: 02/23/17 18:10 Dose: 100 mls/hr Insulin Aspart (Novolog) 0 unit SC [facility] PRN Reason: Protocol Last Admin: 02/24/17 11:30 Dose: Not Given Insulin Aspart (Novolog) 6 unit SC AC [facility] Last Admin: 02/24/17 14:07 Dose: Not Given Insulin Detemir (Levemir) 12 unit SC Q12 [facility] Last Admin: 02/24/17 10:06 Dose: 12 unit Metoclopramide HCl (Reglan) 10 mg PO DAILY [facility] Last Admin: 02/24/17 10:58 Dose: Not Given Nifedipine (Procardia Xl) 60 mg PO BID [facility] Last Admin: 02/24/17 09:54 Dose: 60 mg Ondansetron HCl (Zofran Inj) 4 mg IVP Q4H PRN PRN Reason: Nausea/Vomiting Last Admin: 02/24/17 10:04 Dose: 4 mg Pantoprazole Sodium (Protonix Ec Tab) 40 mg PO DAILY [facility] Last Admin: 02/24/17 09:55 Dose: 40 mg Polyethylene Glycol (Miralax) 17 gm PO BID [facility] Last Admin: 02/24/17 10:06 Dose: Not Given Trimethobenzamide HCl (Tigan) 200 mg IM Q6 PRN PRN Reason: Nausea/Vomiting Last Admin: 02/22/17 05:09 Dose: 200 mg - Labs Labs: 02/23/17 14:19 02/23/17 14:19 PT 13.3 SECONDS (9.7-12.2) H 02/17/17 07:53 INR 1.2 02/17/17 07:53
--- NOTE | 2017-02-24 15:25 | CP.PCM.PN ---
Subjective - Date & Time of Evaluation Date of Evaluation: 02/24/17 Time of Evaluation: 13:00 - Subjective Subjective: SEEN ON RENAL F/U SEEN ON HD C/O ABDO PAIN C/O ( ABSCESS ON L CLAVICLE ) TOLERATING HD WELL Objective - Vital Signs/Intake and Output Vital Signs (last 24 hours): Temp Pulse Resp BP Pulse Ox 97.8 F 66 16 139/61 96 02/24/17 13:40 02/24/17 13:40 02/24/17 13:40 02/24/17 14:40 02/24/17 13:40 Intake and Output: 02/24/17 02/24/17 06:59 18:59 Intake Total 730 400 Balance 730 400 - Medications Medications: Current Medications Calcium Acetate (Phoslo) 667 mg PO TID [facility] Last Admin: 02/24/17 14:07 Dose: Not Given Clonidine HCl (Catapres-Tts3 0.3 Mg/24 Hr) 1 patch TD Q7D@1000 [facility] Last Admin: 02/23/17 10:49 Dose: 1 patch Diphenhydramine HCl (Benadryl) 25 mg IVP Q3 PRN PRN Reason: Itching / Pruritus Last Admin: 02/24/17 14:09 Dose: 25 mg Diphenhydramine HCl (Benadryl) 25 mg IVP MoWeFrSa PRN PRN Reason: Itching / Pruritus Last Admin: 02/24/17 14:45 Dose: 25 mg Docusate Sodium (Colace) 100 mg PO TID [facility] Last Admin: 02/24/17 14:06 Dose: Not Given Epoetin James (Procrit) 10,000 unit IV [facility] [place] Last Admin: 02/23/17 16:34 Dose: 10,000 unit Ferric Sodium Gluconate Complex (Ferrlecit) 125 mg IVPB [facility] [place] Stop: 02/27/17 14:31 Last Admin: 02/23/17 16:35 Dose: 125 mg Hydromorphone HCl (Dilaudid) 2 mg IVP Q3 PRN PRN Reason: Pain, moderate (4-7) Last Admin: 02/24/17 14:01 Dose: 2 mg Vancomycin HCl 0.5 gm/ Sodium (Chloride) 100 [facility]ls [facility] Last Admin: 02/23/17 18:10 Dose: 100 mls/hr Insulin Aspart (Novolog) 0 unit SC ACHS [facility] PRN Reason: Protocol Last Admin: 02/24/17 11:30 Dose: Not Given Insulin Aspart (Novolog) 6 unit SC AC [facility] Last Admin: 02/24/17 14:07 Dose: Not Given Insulin Detemir (Levemir) 12 unit SC Q12 [facility] Last Admin: 02/24/17 10:06 Dose: 12 unit Metoclopramide HCl (Reglan) 10 mg PO DAILY [facility] Last Admin: 02/24/17 10:58 Dose: Not Given Nifedipine (Procardia Xl) 60 mg PO BID [facility] Last Admin: 02/24/17 09:54 Dose: 60 mg Ondansetron HCl (Zofran Inj) 4 mg IVP Q4H PRN PRN Reason: Nausea/Vomiting Last Admin: 02/24/17 10:04 Dose: 4 mg Pantoprazole Sodium (Protonix Ec Tab) 40 mg PO DAILY [facility] Last Admin: 02/24/17 09:55 Dose: 40 mg Polyethylene Glycol (Miralax) 17 gm PO BID [facility] Last Admin: 02/24/17 10:06 Dose: Not Given Trimethobenzamide HCl (Tigan) 200 mg IM Q6 PRN PRN Reason: Nausea/Vomiting Last Admin: 02/22/17 05:09 Dose: 200 mg - Labs Labs: 02/23/17 14:19 02/23/17 14:19 PT 13.3 SECONDS (9.7-12.2) H 02/17/17 07:53 INR 1.2 02/17/17 07:53 Assessment and Plan - Assessment and Plan (Free Text) Assessment: ESRD ON HD M W F AND SAT ANEMIA OF CKD .. HGB 7.0 .. ON EPO 10.000 + FERRLICIT 125 ON HD AILL MONITOR H/H NEXT WEEK .. MAY NEED TRANSFUSION IF HGB STILL LOW C/O CURRENT CARE
--- NOTE | 2017-02-24 16:12 | CP.PCM.CON ---
History of Present Illness - History of Present Illness History of Present Illness: Surgery: Dr. Monae covering for Dr. Green CC: chest wall abscess HPI: Patient is a 31 y/o female with pmhx of DM and ESRD on HD now with anterior superior chest wall abscess and cellulitis. Patient states she was seen about 1 month ago at an outside hospital for same complaint. She states at that time she underwent incision and drainage of abscess. Patient reports that the abscess has continued to drain for over 1 month now. She reports last fever about 2 days ago. She report n/v but states she has gastroparesis so those symptoms she gets frequently. She is unsure of surgeons name who performed the drainage. Patient states she has had multiple abscesses before, mainly on legs, which have been drained and eventually healed. She reports good control of blood sugar will hospitalized, ranging under 200. PMH: DM, ESRD on HD, gastroparesis PSH: Left arm AVF, i&d chest wall ascess, portcath insertion for poor access Review of Systems - Review of Systems All systems: reviewed and no additional remarkable complaints except Review of Systems: unless stated in HPI Past Patient History - Infectious Disease Hx of Infectious Diseases: None - Tetanus Immunizations Tetanus Immunization: Unknown - Past Medical History & Family History Past Medical History?: Yes - Past Social History Smoking Status: Never Smoked - CARDIAC Hx Congestive Heart Failure: Yes ([place]) Hx Hypercholesterolemia: Yes Hx Hypertension: Yes Hx Peripheral Edema: Yes - NEUROLOGICAL Hx Seizures: Yes - HEENT Hx HEENT Problems: Yes Hx Cataracts: Yes Hx Glaucoma: Yes - RENAL Hx Chronic Kidney Disease: Yes Hx Kidney Stones: Yes - ENDOCRINE/METABOLIC Hx Hyperthyroidism: Yes Hx Hypothyroidism: Yes - HEMATOLOGICAL/ONCOLOGICAL Hx Anemia: Yes - INTEGUMENTARY Hx Dermatological Problems: Yes Other/Comment: DRY ITCHY SKIN ;multiple/generalized dark spots on skin - MUSCULOSKELETAL/RHEUMATOLOGICAL Hx Fractures: Yes (Sep 2012 L foot) - GASTROINTESTINAL Hx Gall Bladder Disease: Yes (gallbladder removed) Hx Gastritis: Yes Hx Pancreatitis: Yes (chronic) - GENITOURINARY/GYNECOLOGICAL Hx Genitourinary Disorders: No - PSYCHIATRIC Hx Anxiety: Yes Hx Substance Use: No - SURGICAL HISTORY Hx Cholecystectomy: Yes Hx Coronary Stent: Yes - ANESTHESIA Hx Anesthesia: Yes Hx Anesthesia Reactions: No Hx Malignant Hyperthermia: No Has any member of the family had a problem w/ anesthesia?: No Meds Allergies/Adverse Reactions: Allergies Allergy/AdvReac Type Severity Reaction Status Date / Time ketorolac tromethamine Allergy RASH Verified 02/16/17 14:57 [From Toradol] latex Allergy RASH Verified 02/16/17 14:57 morphine Allergy RASH Verified 02/16/17 14:57 tramadol Allergy RASH Verified 02/16/17 14:57 - Medications Medications: Current Medications Calcium Acetate (Phoslo) 667 mg PO TID [facility] Last Admin: 02/24/17 14:07 Dose: Not Given Clonidine HCl (Catapres-Tts3 0.3 Mg/24 Hr) 1 patch TD Q7D@1000 [facility] Last Admin: 02/23/17 10:49 Dose: 1 patch Diphenhydramine HCl (Benadryl) 25 mg IVP Q3 PRN PRN Reason: Itching / Pruritus Last Admin: 02/24/17 14:09 Dose: 25 mg Diphenhydramine HCl (Benadryl) 25 mg IVP MoWeFrSa PRN PRN Reason: Itching / Pruritus Last Admin: 02/24/17 15:46 Dose: 25 mg Docusate Sodium (Colace) 100 mg PO TID [facility] Last Admin: 02/24/17 14:06 Dose: Not Given Epoetin James (Procrit) 10,000 unit IV [facility] [place] Last Admin: 02/23/17 16:34 Dose: 10,000 unit Ferric Sodium Gluconate Complex (Ferrlecit) 125 mg IVPB [facility] Stop: 02/27/17 14:31 Last Admin: 02/23/17 16:35 Dose: 125 mg Hydromorphone HCl (Dilaudid) 2 mg IVP Q3 PRN PRN Reason: Pain, moderate (4-7) Last Admin: 02/24/17 14:01 Dose: 2 mg Vancomycin HCl 0.5 gm/ Sodium (Chloride) 100 mls @ 100 mls/hr IVPB [facility] Last Admin: 02/23/17 18:10 Dose: 100 mls/hr Insulin Aspart (Novolog) 0 unit SC ACHS [facility] PRN Reason: Protocol Last Admin: 02/24/17 11:30 Dose: Not Given Insulin Aspart (Novolog) 6 unit SC AC [facility] Last Admin: 02/24/17 14:07 Dose: Not Given Insulin Detemir (Levemir) 12 unit SC Q12 [facility] Last Admin: 02/24/17 10:06 Dose: 12 unit Metoclopramide HCl (Reglan) 10 mg PO DAILY [facility] Last Admin: 02/24/17 10:58 Dose: Not Given Nifedipine (Procardia Xl) 60 mg PO BID [facility] Last Admin: 02/24/17 09:54 Dose: 60 mg Ondansetron HCl (Zofran Inj) 4 mg IVP Q4H PRN PRN Reason: Nausea/Vomiting Last Admin: 02/24/17 10:04 Dose: 4 mg Pantoprazole Sodium (Protonix Ec Tab) 40 mg PO DAILY [facility] Last Admin: 02/24/17 09:55 Dose: 40 mg Polyethylene Glycol (Miralax) 17 gm PO BID [facility] Last Admin: 02/24/17 10:06 Dose: Not Given Trimethobenzamide HCl (Tigan) 200 mg IM Q6 PRN PRN Reason: Nausea/Vomiting Last Admin: 02/22/17 05:09 Dose: 200 mg Physical Exam - Constitutional Appears: Non-toxic, No Acute Distress - Head Exam Head Exam: ATRAUMATIC, NORMOCEPHALIC - Eye Exam Eye Exam: EOMI, Normal appearance - ENT Exam ENT Exam: Mucous Membranes Moist - Respiratory Exam Respiratory Exam: NORMAL BREATHING PATTERN. absent: Respiratory Distress Additional comments: anterior mid superior, sternoclavicular incision noted. blood tinged purulent fluid drainage noted from incision. No area of fluctuance palpated. area nontender to palpation. no surround crepitus . - Cardiovascular Exam Cardiovascular Exam: REGULAR RHYTHM. absent: Tachycardia Results - Vital Signs Recent Vital Signs: Last Vital Signs Temp 97.8 F 02/24/17 13:40 Pulse 66 02/24/17 13:40 Resp 16 02/24/17 13:40 BP 139/61 02/24/17 14:40 Pulse Ox 96 02/24/17 13:40 - Labs Result Diagrams: 02/23/17 14:19 02/23/17 14:19 Labs: Laboratory Results - last 24 hr 02/23/17 02/23/17 02/24/17 16:31 21:04 07:21 POC Glucose (mg/dL) 213 H 341 H 134 H 02/24/17 11:38 POC Glucose (mg/dL) 145 H Assessment & Plan - Assessment and Plan (Free Text) Assessment: 31 y/o female w/ sternoclavicular abscess/cellulitis s/p incision and drainage 1 month ago Plan: -consider CT finding w/ f/u ortho recommendations regarding collection near joint -cont to monitor output -warm compress to abscess -cont abx -abscess actively draining at this time -needs moderate blood sugar control for overall healing -d/w Dr. Monae [facility] PGY3
[2017-02-25] MEDS: DiphenhydrAMINE 50 mg/ml Inj IVP PRN ×8 (00:06→21:54)
--- NOTE | 2017-02-25 07:11 | CP.PCM.PN ---
Subjective - Date & Time of Evaluation Date of Evaluation: 02/25/17 Time of Evaluation: 07:08 - Subjective Subjective: Surgery: Dr. Monae covering for Dr. Green Patient reports pain in the left clavicular area. She denies shortness of breath or pleuritic pain. She reports self changed the dressing because of blood tinged purulent drainage and it was not staying on. She denies f/c/n/v. Objective - Vital Signs/Intake and Output Vital Signs (last 24 hours): Temp Pulse Resp BP Pulse Ox 97.9 F 108 H 20 140/68 100 02/25/17 00:00 02/25/17 00:00 02/25/17 00:00 02/25/17 00:30 02/25/17 00:00 Intake and Output: 02/25/17 02/25/17 06:59 18:59 Intake Total 450 Balance 450 - Medications Medications: Current Medications Calcium Acetate (Phoslo) 667 mg PO TID [facility] Last Admin: 02/24/17 17:50 Dose: 667 mg Clonidine HCl (Catapres-Tts3 0.3 Mg/24 Hr) 1 patch TD Q7D@1000 [facility] Last Admin: 02/23/17 10:49 Dose: 1 patch Diphenhydramine HCl (Benadryl) 25 mg IVP Q3 PRN PRN Reason: Itching / Pruritus Last Admin: 02/25/17 06:01 Dose: 25 mg Diphenhydramine HCl (Benadryl) 25 mg IVP MoWe[facility] PRN PRN Reason: Itching / Pruritus Last Admin: 02/24/17 15:46 Dose: 25 mg Docusate Sodium (Colace) 100 mg PO TID [facility] Last Admin: 02/24/17 17:50 Dose: 100 mg Epoetin James (Procrit) 10,000 unit IV [facility] [place] Last Admin: 02/23/17 16:34 Dose: 10,000 unit Ferric Sodium Gluconate Complex (Ferrlecit) 125 mg IVPB [facility] [place] Stop: 02/27/17 14:31 Last Admin: 02/23/17 16:35 Dose: 125 mg Hydromorphone HCl (Dilaudid) 2 mg IVP Q3 PRN PRN Reason: Pain, moderate (4-7) Last Admin: 02/25/17 06:02 Dose: 2 mg Vancomycin HCl 0.5 gm/ Sodium (Chloride) 100 mls @ 100 mls/hr IVPB MWF [facility] Last Admin: 02/23/17 18:10 Dose: 100 mls/hr Insulin Aspart (Novolog) 0 unit SC ACHS [facility] PRN Reason: Protocol Last Admin: 02/24/17 22:30 Dose: 2 unit Insulin Aspart (Novolog) 6 unit SC AC [facility] Last Admin: 02/24/17 17:10 Dose: 6 unit Insulin Detemir (Levemir) 12 unit SC Q12 [facility] Last Admin: 02/24/17 22:30 Dose: 12 unit Metoclopramide HCl (Reglan) 10 mg PO DAILY [facility] Last Admin: 02/24/17 10:58 Dose: Not Given Nifedipine (Procardia Xl) 60 mg PO BID [facility] Last Admin: 02/24/17 18:02 Dose: Not Given Ondansetron HCl (Zofran Inj) 4 mg IVP Q4H PRN PRN Reason: Nausea/Vomiting Last Admin: 02/25/17 06:02 Dose: 4 mg Pantoprazole Sodium (Protonix Ec Tab) 40 mg PO DAILY [facility] Last Admin: 02/24/17 09:55 Dose: 40 mg Polyethylene Glycol (Miralax) 17 gm PO BID [facility] Last Admin: 02/24/17 17:54 Dose: Not Given Trimethobenzamide HCl (Tigan) 200 mg IM Q6 PRN PRN Reason: Nausea/Vomiting Last Admin: 02/22/17 05:09 Dose: 200 mg - Labs Labs: 02/23/17 14:19 02/23/17 14:19 PT 13.3 SECONDS (9.7-12.2) H 02/17/17 07:53 INR 1.2 02/17/17 07:53 - Constitutional Appears: Non-toxic, No Acute Distress - Head Exam Head Exam: ATRAUMATIC, NORMOCEPHALIC - Eye Exam Eye Exam: EOMI, Normal appearance - ENT Exam ENT Exam: Mucous Membranes Moist - Respiratory Exam Respiratory Exam: NORMAL BREATHING PATTERN. absent: Respiratory Distress Additional comments: dressing over draining abscess CDI - Cardiovascular Exam Cardiovascular Exam: REGULAR RHYTHM. absent: Tachycardia Assessment and Plan - Assessment and Plan (Free Text) Assessment: 31 y/o female w/ sternoclavicular abscess s/p I&D now with concern of joint invasion Plan: -f/u with orthopedic recommendations -abscess draining, please provide warm compress to patient -f/u am labs -pending ortho eval determines further surgical intervention -further recs per Dr. Prudencio STACYdustin pGY3
[2017-02-25] MEDS: (Novolog) Insulin Aspart, Recombinant 100 u/ml 10 ml vial SC SCH ×7 (07:30→22:00)
[2017-02-25] MEDS: POLYETHYLENE GLYCOL 3350 17 GM/Dose PACKET PO SCH ×2 (09:17→18:41)
[2017-02-25] MEDS: Insulin Detemir 100 units/ml Vial (Levemir) SC SCH ×2 (09:17→22:12)
[2017-02-25] MEDS: NIFEdipine 60 mg ER Tab PO SCH ×2 (09:20→18:50)
[2017-02-25] MEDS: Pantoprazole 40 mg EC Tab PO SCH (10:00)
--- NOTE | 2017-02-25 15:17 | CP.PCM.PN ---
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 she was later transferred to [facility] and had some drainage/ debridement done She was treated for over 6 weeks with Cubicin every other day despite this she remins septic with positive blood cultures and CT findings showing destruction of clavicle and sternoclavicular joint would consult ortho, cardiology for KAMRAN poor prognosis Objective - Vital Signs/Intake and Output Vital Signs (last 24 hours): Temp Pulse Resp BP Pulse Ox 97.4 F L 100 H 20 153/89 H 100 02/25/17 14:05 02/25/17 14:05 02/25/17 14:05 02/25/17 14:05 02/25/17 14:05 Intake and Output: 02/25/17 02/25/17 06:59 18:59 Intake Total 450 340 Balance 450 340 - Medications Medications: Current Medications Calcium Acetate (Phoslo) 667 mg PO TID [facility] Last Admin: 02/25/17 14:08 Dose: 667 mg Clonidine HCl (Catapres-Tts3 0.3 Mg/24 Hr) 1 patch TD Q7D@1000 [facility] Last Admin: 02/23/17 10:49 Dose: 1 patch Diphenhydramine HCl (Benadryl) 25 mg IVP Q3 PRN PRN Reason: Itching / Pruritus Last Admin: 02/25/17 12:20 Dose: 25 mg Diphenhydramine HCl (Benadryl) 25 mg IVP [facility] PRN PRN Reason: Itching / Pruritus Last Admin: 02/24/17 15:46 Dose: 25 mg Docusate Sodium (Colace) 100 mg PO TID [facility] Last Admin: 02/25/17 14:08 Dose: 100 mg Epoetin James (Procrit) 10,000 unit IV [facility] [place] Last Admin: 02/23/17 16:34 Dose: 10,000 unit Ferric Sodium Gluconate Complex (Ferrlecit) 125 mg IVPB [facility] [place] Stop: 02/27/17 14:31 Last Admin: 02/23/17 16:35 Dose: 125 mg Hydromorphone HCl (Dilaudid) 2 mg IVP Q3 PRN PRN Reason: Pain, moderate (4-7) Last Admin: 02/25/17 12:21 Dose: 2 mg Vancomycin HCl 0.5 gm/ Sodium (Chloride) 100 mls @ 100 mls/hr IVPB MWF [facility] Last Admin: 02/23/17 18:10 Dose: 100 mls/hr Insulin Aspart (Novolog) 0 unit SC ACHS [facility] PRN Reason: Protocol Last Admin: 02/25/17 11:30 Dose: Not Given Insulin Aspart (Novolog) 6 unit SC AC [facility] Last Admin: 02/25/17 12:25 Dose: 6 unit Insulin Detemir (Levemir) 12 unit SC Q12 [facility] Last Admin: 02/25/17 09:17 Dose: 12 unit Metoclopramide HCl (Reglan) 10 mg PO DAILY [facility] Last Admin: 02/25/17 09:20 Dose: 10 mg Nifedipine (Procardia Xl) 60 mg PO BID [facility] Last Admin: 02/25/17 09:20 Dose: 60 mg Ondansetron HCl (Zofran Inj) 4 mg IVP Q4H PRN PRN Reason: Nausea/Vomiting Last Admin: 02/25/17 06:02 Dose: 4 mg Pantoprazole Sodium (Protonix Ec Tab) 40 mg PO DAILY [facility] Last Admin: 02/25/17 10:00 Dose: 40 mg Polyethylene Glycol (Miralax) 17 gm PO BID [facility] Last Admin: 02/25/17 09:17 Dose: Not Given Trimethobenzamide HCl (Tigan) 200 mg IM Q6 PRN PRN Reason: Nausea/Vomiting Last Admin: 02/22/17 05:09 Dose: 200 mg - Labs Labs: 02/23/17 14:19 02/23/17 14:19 PT 13.3 SECONDS (9.7-12.2) H 02/17/17 07:53 INR 1.2 02/17/17 07:53
--- NOTE | 2017-02-25 21:20 | CP.PCM.PN ---
Subjective - Date & Time of Evaluation Date of Evaluation: 02/25/17 Time of Evaluation: 10:30 - Subjective Subjective: clinically same Objective - Vital Signs/Intake and Output Vital Signs (last 24 hours): Temp Pulse Resp BP Pulse Ox 98.4 F 99 H 20 164/73 H 100 02/25/17 15:00 02/25/17 15:00 02/25/17 15:00 02/25/17 15:00 02/25/17 15:00 Intake and Output: 02/25/17 02/26/17 18:59 06:59 Intake Total 340 Balance 340 - Medications Medications: Current Medications Calcium Acetate (Phoslo) 667 mg PO TID [facility] Last Admin: 02/25/17 18:48 Dose: Not Given Clonidine HCl (Catapres-Tts3 0.3 Mg/24 Hr) 1 patch TD Q7D@1000 [facility] Last Admin: 02/23/17 10:49 Dose: 1 patch Diphenhydramine HCl (Benadryl) 25 mg IVP Q3 PRN PRN Reason: Itching / Pruritus Last Admin: 02/25/17 18:36 Dose: 25 mg Diphenhydramine HCl (Benadryl) 25 mg IVP [facility] PRN PRN Reason: Itching / Pruritus Last Admin: 02/24/17 15:46 Dose: 25 mg Docusate Sodium (Colace) 100 mg PO TID [facility] Last Admin: 02/25/17 18:41 Dose: 100 mg Epoetin James (Procrit) 10,000 unit IV [facility] [place] Last Admin: 02/23/17 16:34 Dose: 10,000 unit Ferric Sodium Gluconate Complex (Ferrlecit) 125 mg IVPB [facility] Stop: 02/27/17 14:31 Last Admin: 02/23/17 16:35 Dose: 125 mg Vancomycin HCl 0.5 gm/ Sodium (Chloride) 100 mls @ 100 mls/hr IVPB [facility] Last Admin: 02/23/17 18:10 Dose: 100 mls/hr Insulin Aspart (Novolog) 0 unit SC ACHS [facility] PRN Reason: Protocol Last Admin: 02/25/17 17:10 Dose: 4 unit Insulin Aspart (Novolog) 6 unit SC AC [facility] Last Admin: 02/25/17 17:10 Dose: 6 unit Insulin Detemir (Levemir) 12 unit SC Q12 [facility] Last Admin: 02/25/17 09:17 Dose: 12 unit Metoclopramide HCl (Reglan) 10 mg PO DAILY [facility] Last Admin: 02/25/17 09:20 Dose: 10 mg Nifedipine (Procardia Xl) 60 mg PO BID [facility] Last Admin: 02/25/17 18:50 Dose: 60 mg Ondansetron HCl (Zofran Inj) 4 mg IVP Q4H PRN PRN Reason: Nausea/Vomiting Last Admin: 02/25/17 06:02 Dose: 4 mg Pantoprazole Sodium (Protonix Ec Tab) 40 mg PO DAILY [facility] Last Admin: 02/25/17 10:00 Dose: 40 mg Polyethylene Glycol (Miralax) 17 gm PO BID [facility] Last Admin: 02/25/17 18:41 Dose: Not Given Trimethobenzamide HCl (Tigan) 200 mg IM Q6 PRN PRN Reason: Nausea/Vomiting Last Admin: 02/22/17 05:09 Dose: 200 mg - Labs Labs: 02/23/17 14:19 02/23/17 14:19 PT 13.3 SECONDS (9.7-12.2) H 02/17/17 07:53 INR 1.2 02/17/17 07:53
[2017-02-26] MEDS: DiphenhydrAMINE 50 mg/ml Inj IVP PRN ×10 (00:50→21:32)
[2017-02-26] MEDS: (Novolog) Insulin Aspart, Recombinant 100 u/ml 10 ml vial SC SCH ×7 (08:21→21:41)
--- NOTE | 2017-02-26 09:54 | CP.PCM.PN ---
<Ashley BricenoErinmikaela - Last Filed: 02/26/17 17:14> Subjective - Date & Time of Evaluation Date of Evaluation: 02/26/17 Time of Evaluation: 09:51 - Subjective Subjective: Surgery: Dr. Green Patient reports pain to the clavicle area. Further discussion with patient reveals that she has had multiple bone debridements in the area before at the medical center. 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 She in unsure of surgeons name. Objective - Vital Signs/Intake and Output Vital Signs (last 24 hours): Temp Pulse Resp BP Pulse Ox 98 F 109 H 20 170/89 H 100 02/26/17 00:00 02/26/17 00:00 02/26/17 00:00 02/26/17 00:00 02/26/17 00:00 Intake and Output: 02/26/17 02/26/17 06:59 18:59 Intake Total 350 240 Balance 350 240 - Medications Medications: Current Medications Calcium Acetate (Phoslo) 667 mg PO TID [facility] Last Admin: 02/25/17 18:48 Dose: Not Given Clonidine HCl (Catapres-Tts3 0.3 Mg/24 Hr) 1 patch TD Q7D@1000 [facility] Last Admin: 02/23/17 10:49 Dose: 1 patch Diphenhydramine HCl (Benadryl) 25 mg IVP Q3 PRN PRN Reason: Itching / Pruritus Last Admin: 02/26/17 09:32 Dose: 25 mg Diphenhydramine HCl (Benadryl) 25 mg IVP MoWeFrSa PRN PRN Reason: Itching / Pruritus Last Admin: 02/24/17 15:46 Dose: 25 mg Docusate Sodium (Colace) 100 mg PO TID [facility] Last Admin: 02/25/17 18:41 Dose: 100 mg Epoetin James (Procrit) 10,000 unit IV [facility] [place] Last Admin: 02/23/17 16:34 Dose: 10,000 unit Ferric Sodium Gluconate Complex (Ferrlecit) 125 mg IVPB [facility] [place] [facility] Stop: 02/27/17 14:31 Last Admin: 02/23/17 16:35 Dose: 125 mg Hydromorphone HCl (Dilaudid) 2 mg IVP Q3H PRN PRN Reason: Pain, severe (8-10) Stop: 02/26/17 11:00 Last Admin: 02/26/17 09:31 Dose: 2 mg Vancomycin HCl 0.5 gm/ Sodium (Chloride) 100 mls @ 100 mls/hr IVPB MWF [facility] Last Admin: 02/23/17 18:10 Dose: 100 mls/hr Insulin Aspart (Novolog) 0 unit SC ACHS [facility] PRN Reason: Protocol Last Admin: 02/26/17 08:21 Dose: Not Given Insulin Aspart (Novolog) 6 unit SC AC [facility] Last Admin: 02/26/17 09:23 Dose: 6 unit Insulin Detemir (Levemir) 12 unit SC Q12 [facility] Last Admin: 02/25/17 22:12 Dose: 12 unit Metoclopramide HCl (Reglan) 10 mg PO DAILY [facility] Last Admin: 02/25/17 09:20 Dose: 10 mg Nifedipine (Procardia Xl) 60 mg PO BID [facility] Last Admin: 02/25/17 18:50 Dose: 60 mg Ondansetron HCl (Zofran Inj) 4 mg IVP Q4H PRN PRN Reason: Nausea/Vomiting Last Admin: 02/25/17 06:02 Dose: 4 mg Pantoprazole Sodium (Protonix Ec Tab) 40 mg PO DAILY [facility] Last Admin: 02/25/17 10:00 Dose: 40 mg Polyethylene Glycol (Miralax) 17 gm PO BID [facility] Last Admin: 02/25/17 18:41 Dose: Not Given Trimethobenzamide HCl (Tigan) 200 mg IM Q6 PRN PRN Reason: Nausea/Vomiting Last Admin: 02/22/17 05:09 Dose: 200 mg - Labs Labs: 02/23/17 14:19 02/23/17 14:19 PT 13.3 SECONDS (9.7-12.2) H 02/17/17 07:53 INR 1.2 02/17/17 07:53 - Constitutional Appears: Non-toxic, No Acute Distress - Head Exam Head Exam: ATRAUMATIC, NORMOCEPHALIC - Eye Exam Eye Exam: EOMI, Normal appearance - Neck Exam Additional comments: nontender to HI joint. incision noted just over midline of anterior superior chest. no active drainage noted. Skin edges appear to be healing. no area of fluctuance to drain. - Respiratory Exam Respiratory Exam: NORMAL BREATHING PATTERN. absent: Respiratory Distress - Cardiovascular Exam Cardiovascular Exam: REGULAR RHYTHM. absent: Tachycardia - GI/Abdominal Exam GI & Abdominal Exam: Soft. absent: Distended, Guarding, Tenderness Assessment and Plan - Assessment and Plan (Free Text) Assessment: 31 y/o female w/ history of osteomyelitis of SC joint, with prior debridement of bone and drainage of surrounding abscess Plan: -patient has an extensive surgical history with this joint -no palpable abscess to drain at this time -patient should f/u with primary surgeon for further care -cont abx -cont warm compresses and pain control -further recs per Dr. Green AKWhite PGY3 <Yoel Green - Last Filed: 03/05/17 15:53> Objective - Vital Signs/Intake and Output Vital Signs (last 24 hours): Temp Pulse Resp BP Pulse Ox 98.2 F 106 H 20 132/68 98 03/04/17 08:59 03/04/17 08:59 03/04/17 08:59 03/04/17 08:59 03/04/17 08:59 - Labs Labs: 03/04/17 11:04 03/02/17 14:33 PT 13.3 SECONDS (9.7-12.2) H 02/17/17 07:53 INR 1.2 02/17/17 07:53 Attending/Attestation - Attestation I have personally seen and examined this patient.: Yes I have fully participated in the care of the patient.: Yes I have reviewed all pertinent clinical information, including history, physical exam and plan: Yes Notes (Text): 03/05/17 15:52 Pt was seen and examined at bedside on 02/26/17 Agree with above note and assessment Pt with OM of SC joint f/U orhopedics Plan d.w pt in detail. Risk and benefit explained in detail.
[2017-02-26] MEDS: Insulin Detemir 100 units/ml Vial (Levemir) SC SCH ×2 (10:01→21:39)
[2017-02-26] MEDS: POLYETHYLENE GLYCOL 3350 17 GM/Dose PACKET PO SCH ×2 (10:02→18:38)
[2017-02-26] MEDS: NIFEdipine 60 mg ER Tab PO SCH ×2 (10:03→17:32)
[2017-02-26] MEDS: Pantoprazole 40 mg EC Tab PO SCH (10:03)
--- NOTE | 2017-02-26 10:30 | CP.PCM.PN ---
Subjective - Date & Time of Evaluation Date of Evaluation: 02/26/17 Time of Evaluation: 07:40 - Subjective Subjective: clinically same Objective - Vital Signs/Intake and Output Vital Signs (last 24 hours): Temp Pulse Resp BP Pulse Ox 98 F 109 H 20 170/89 H 100 02/26/17 00:00 02/26/17 00:00 02/26/17 00:00 02/26/17 00:00 02/26/17 00:00 Intake and Output: 02/26/17 02/26/17 06:59 18:59 Intake Total 350 240 Balance 350 240 - Medications Medications: Current Medications Calcium Acetate (Phoslo) 667 mg PO TID [facility] Last Admin: 02/26/17 10:16 Dose: Not Given Clonidine HCl (Catapres-Tts3 0.3 Mg/24 Hr) 1 patch TD Q7D@1000 [facility] Last Admin: 02/23/17 10:49 Dose: 1 patch Diphenhydramine HCl (Benadryl) 25 mg IVP Q3 PRN PRN Reason: Itching / Pruritus Last Admin: 02/26/17 09:32 Dose: 25 mg Diphenhydramine HCl (Benadryl) 25 mg IVP MoWeFrSa PRN PRN Reason: Itching / Pruritus Last Admin: 02/24/17 15:46 Dose: 25 mg Docusate Sodium (Colace) 100 mg PO TID [facility] Last Admin: 02/26/17 10:02 Dose: Not Given Epoetin James (Procrit) 10,000 unit IV [facility] [place] Last Admin: 02/23/17 16:34 Dose: 10,000 unit Ferric Sodium Gluconate Complex (Ferrlecit) 125 mg IVPB [facility] [place] Stop: 02/27/17 14:31 Last Admin: 02/23/17 16:35 Dose: 125 mg Hydromorphone HCl (Dilaudid) 2 mg IVP Q3H PRN PRN Reason: Pain, severe (8-10) Stop: 02/26/17 11:00 Last Admin: 02/26/17 09:31 Dose: 2 mg Vancomycin HCl 0.5 gm/ Sodium (Chloride) 100 mls @ 100 mls/hr IVPB [facility] [place] Last Admin: 02/23/17 18:10 Dose: 100 mls/hr Insulin Aspart (Novolog) 0 unit SC [facility] PRN Reason: Protocol Last Admin: 02/26/17 08:21 Dose: Not Given Insulin Aspart (Novolog) 6 unit SC AC [facility] Last Admin: 02/26/17 09:23 Dose: 6 unit Insulin Detemir (Levemir) 12 unit SC Q12 [facility] Last Admin: 02/26/17 10:01 Dose: Not Given Metoclopramide HCl (Reglan) 10 mg PO DAILY [facility] Last Admin: 02/26/17 10:16 Dose: Not Given Nifedipine (Procardia Xl) 60 mg PO BID [facility] Last Admin: 02/26/17 10:03 Dose: Not Given Ondansetron HCl (Zofran Inj) 4 mg IVP Q4H PRN PRN Reason: Nausea/Vomiting Last Admin: 02/25/17 06:02 Dose: 4 mg Pantoprazole Sodium (Protonix Ec Tab) 40 mg PO DAILY [facility] Last Admin: 02/26/17 10:03 Dose: Not Given Polyethylene Glycol (Miralax) 17 gm PO BID [facility] Last Admin: 02/26/17 10:02 Dose: Not Given Trimethobenzamide HCl (Tigan) 200 mg IM Q6 PRN PRN Reason: Nausea/Vomiting Last Admin: 02/22/17 05:09 Dose: 200 mg - Labs Labs: 02/23/17 14:19 02/23/17 14:19 PT 13.3 SECONDS (9.7-12.2) H 02/17/17 07:53 INR 1.2 02/17/17 07:53 - Constitutional Appears: Well - Head Exam Head Exam: ATRAUMATIC, NORMAL INSPECTION, NORMOCEPHALIC - Eye Exam Eye Exam: EOMI, Normal appearance, PERRL Pupil Exam: NORMAL ACCOMODATION, PERRL - ENT Exam ENT Exam: Mucous Membranes Moist, Normal Exam - Neck Exam Neck Exam: Full ROM, Normal Inspection. absent: Lymphadenopathy - Respiratory Exam Respiratory Exam: Decreased Breath Sounds - Cardiovascular Exam Cardiovascular Exam: REGULAR RHYTHM, +S1, +S2 - GI/Abdominal Exam GI & Abdominal Exam: Soft, Diminished Bowel Sounds - Rectal Exam Rectal Exam: Deferred
--- NOTE | 2017-02-26 12:42 | CP.PCM.PN ---
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 in october 2016 she was later transferred to [facility] and had some drainage/ debridement done She was treated for over 6 weeks with Cubicin every other day despite this she remins septic with positive blood cultures and CT findings showing destruction of clavicle and sternoclavicular joint Objective - Vital Signs/Intake and Output Vital Signs (last 24 hours): Temp Pulse Resp BP Pulse Ox 98 F 109 H 20 170/89 H 100 02/26/17 00:00 02/26/17 00:00 02/26/17 00:00 02/26/17 00:00 02/26/17 00:00 Intake and Output: 02/26/17 02/26/17 06:59 18:59 Intake Total 350 240 Balance 350 240 - Medications Medications: Current Medications Calcium Acetate (Phoslo) 667 mg PO TID [facility] Last Admin: 02/26/17 10:16 Dose: Not Given Clonidine HCl (Catapres-Tts3 0.3 Mg/24 Hr) 1 patch TD Q7D@1000 [facility] Last Admin: 02/23/17 10:49 Dose: 1 patch Diphenhydramine HCl (Benadryl) 25 mg IVP Q3 PRN PRN Reason: Itching / Pruritus Last Admin: 02/26/17 12:36 Dose: 25 mg Diphenhydramine HCl (Benadryl) 25 mg IVP MoWeFrSa PRN PRN Reason: Itching / Pruritus Last Admin: 02/24/17 15:46 Dose: 25 mg Docusate Sodium (Colace) 100 mg PO TID [facility] Last Admin: 02/26/17 10:02 Dose: Not Given Epoetin James (Procrit) 10,000 unit IV [facility] [place] Last Admin: 02/23/17 16:34 Dose: 10,000 unit Ferric Sodium Gluconate Complex (Ferrlecit) 125 mg IVPB F [facility] Stop: 02/27/17 14:31 Last Admin: 02/23/17 16:35 Dose: 125 mg Hydromorphone HCl (Dilaudid) 2 mg IVP Q3H PRN PRN Reason: pain Last Admin: 02/26/17 12:36 Dose: 2 mg Vancomycin HCl 0.5 gm/ Sodium (Chloride) 100 mls @ 100 mls/hr IVPB MWF [facility] Last Admin: 02/23/17 18:10 Dose: 100 mls/hr Insulin Aspart (Novolog) 0 unit SC ACHS [facility] PRN Reason: Protocol Last Admin: 02/26/17 12:29 Dose: Not Given Insulin Aspart (Novolog) 6 unit SC AC [facility] Last Admin: 02/26/17 12:29 Dose: Not Given Insulin Detemir (Levemir) 12 unit SC Q12 [facility] Last Admin: 02/26/17 10:01 Dose: Not Given Metoclopramide HCl (Reglan) 10 mg PO DAILY [facility] Last Admin: 02/26/17 10:16 Dose: Not Given Nifedipine (Procardia Xl) 60 mg PO BID [facility] Last Admin: 02/26/17 10:03 Dose: Not Given Ondansetron HCl (Zofran Inj) 4 mg IVP Q4H PRN PRN Reason: Nausea/Vomiting Last Admin: 02/25/17 06:02 Dose: 4 mg Pantoprazole Sodium (Protonix Ec Tab) 40 mg PO DAILY [facility] Last Admin: 02/26/17 10:03 Dose: Not Given Polyethylene Glycol (Miralax) 17 gm PO BID [facility] Last Admin: 02/26/17 10:02 Dose: Not Given Trimethobenzamide HCl (Tigan) 200 mg IM Q6 PRN PRN Reason: Nausea/Vomiting Last Admin: 02/22/17 05:09 Dose: 200 mg - Labs Labs: 02/23/17 14:19 02/23/17 14:19 PT 13.3 SECONDS (9.7-12.2) H 02/17/17 07:53 INR 1.2 02/17/17 07:53 - Constitutional Appears: Non-toxic, Chronically Ill - Head Exam Head Exam: NORMOCEPHALIC - Eye Exam Eye Exam: PERRL. absent: Scleral icterus - ENT Exam ENT Exam: Mucous Membranes Dry - Neck Exam Neck Exam: absent: Lymphadenopathy - Respiratory Exam Respiratory Exam: Decreased Breath Sounds - Cardiovascular Exam Cardiovascular Exam: REGULAR RHYTHM, +S1, +S2 - GI/Abdominal Exam GI & Abdominal Exam: Distended, Soft Assessment and Plan (1) Bacteremia Status: Acute (2) Chest pain Status: Acute
[2017-02-26 14:41] LABS: BASO # 0.1 K/uL (0.0-0.2); EOS # 1.4 K/uL (0.0-0.7); EOS % 13.3 % (0.0-4.0); LYMPH % 10.1 % (20.0-40.0); MEAN PLATELET VOLUME 7.6 fL (7.2-11.7); MONO # 0.9 K/uL (0.0-0.8); NEUT # 6.8 K/uL (1.8-7.0); NEUT % 66.6 % (50.0-75.0); RBC 2.51 Mil/uL (3.80-5.20); RED CELL DISTRIBUTION WIDTH 16.7 % (11.5-14.5); WHITE BLOOD COUNT 10.2 K/uL (4.8-10.8)
[2017-02-26 14:49] LABS: ALBUMIN 3.9 g/dL (3.5-5.0)
[2017-02-26 14:53] LABS: CALCIUM 7.2 mg/dl (8.6-10.4)
[2017-02-26] MEDS: Ferric Sodium Gluconat Complex 62.5 mg/5 ml Vial IVPB SCH (15:56)
[2017-02-26] MEDS: Epoetin Alfa 10,000 unit/ml Dialysis IV SCH (15:56)
[2017-02-26] MEDS: Vancomycin 0.5 GM in Sodium Chloride 0.9% 100 ML IVPB SCH (17:35)
--- NOTE | 2017-02-26 23:49 | CP.PCM.PN ---
Subjective - Date & Time of Evaluation Date of Evaluation: 02/26/17 Time of Evaluation: 15:00 - Subjective Subjective: SEEN ON RENAL F/U SEEN ON HD C/O LOCAL PAIN AROUND L CLAVIC[place] AREA ALSO C/O ABDO PAIN Objective - Vital Signs/Intake and Output Vital Signs (last 24 hours): Temp Pulse Resp BP Pulse Ox 97.3 F L 82 16 124/97 H 100 02/26/17 17:05 02/26/17 17:05 02/26/17 17:05 02/26/17 17:05 02/26/17 17:05 Intake and Output: 02/26/17 02/27/17 18:59 06:59 Intake Total 480 Balance 480 - Medications Medications: Current Medications Calcium Acetate (Phoslo) 667 mg PO TID [facility] Last Admin: 02/26/17 17:40 Dose: Not Given Clonidine HCl (Catapres-Tts3 0.3 Mg/24 Hr) 1 patch TD Q7D@1000 [facility] Last Admin: 02/23/17 10:49 Dose: 1 patch Diphenhydramine HCl (Benadryl) 25 mg IVP Q3 PRN PRN Reason: Itching / Pruritus Last Admin: 02/26/17 21:32 Dose: 25 mg Diphenhydramine HCl (Benadryl) 25 mg IVP Mo[facility] PRN PRN Reason: Itching / Pruritus Last Admin: 02/26/17 16:33 Dose: 25 mg Docusate Sodium (Colace) 100 mg PO TID [facility] Last Admin: 02/26/17 17:32 Dose: 100 mg Epoetin James (Procrit) 10,000 unit [place] [facility] [place] Last Admin: 02/26/17 15:56 Dose: 10,000 unit Ferric Sodium Gluconate Complex (Ferrlecit) 125 mg IVPB [facility] Stop: 02/27/17 14:31 Last Admin: 02/26/17 15:56 Dose: 125 mg Hydromorphone HCl (Dilaudid) 2 mg IVP Q3H PRN PRN Reason: pain Last Admin: 02/26/17 21:33 Dose: 2 mg Vancomycin HCl 0.5 gm/ Sodium (Chloride) 100 mls @ 100 mls/hr IVPB [facility] [place] Last Admin: 02/26/17 17:35 Dose: 100 mls/hr Insulin Aspart (Novolog) 0 unit SC ACHS [facility] PRN Reason: Protocol Last Admin: 02/26/17 21:41 Dose: 3 unit Insulin Aspart (Novolog) 6 unit SC AC [facility] Last Admin: 02/26/17 17:34 Dose: 6 unit Insulin Detemir (Levemir) 12 unit SC Q12 [facility] Last Admin: 02/26/17 21:39 Dose: 12 unit Metoclopramide HCl (Reglan) 10 mg PO DAILY [facility] Last Admin: 02/26/17 10:16 Dose: Not Given Nifedipine (Procardia Xl) 60 mg PO BID [facility] Last Admin: 02/26/17 17:32 Dose: 60 mg Ondansetron HCl (Zofran Inj) 4 mg IVP Q4H PRN PRN Reason: Nausea/Vomiting Last Admin: 02/25/17 06:02 Dose: 4 mg Pantoprazole Sodium (Protonix Ec Tab) 40 mg PO DAILY [facility] Last Admin: 02/26/17 10:03 Dose: Not Given Polyethylene Glycol (Miralax) 17 gm PO BID [facility] Last Admin: 02/26/17 18:38 Dose: Not Given Trimethobenzamide HCl (Tigan) 200 mg IM Q6 PRN PRN Reason: Nausea/Vomiting Last Admin: 02/22/17 05:09 Dose: 200 mg - Labs Labs: 02/26/17 14:37 02/26/17 14:37 PT 13.3 SECONDS (9.7-12.2) H 02/17/17 07:53 INR 1.2 02/17/17 07:53 Assessment and Plan - Assessment and Plan (Free Text) Assessment: ESRD ON HD M W F AND SAT ANEMIA OF CKD . ON EPO + FERRLICIT ,, HGB 8.0 SEEPSIS ON IVAB C/O CURRENT CARE
[2017-02-27] MEDS: DiphenhydrAMINE 50 mg/ml Inj IVP PRN ×7 (00:27→22:54)
[2017-02-27] MEDS ORDERED: (Novolog) Insulin Aspart, Recombinant 100 u/ml 10 ml vial SC STA (00:54)
[2017-02-27] MEDS: Trimethobenzamide 200 mg/2 mL Inj IM PRN (01:24)
[2017-02-27] MEDS ORDERED: Dextrose 50% SYRINGE Inj (50 ml) ONE (03:46)
[2017-02-27] MEDS ORDERED: Dextrose 50% SYRINGE Inj (50 ml) IV STA (03:51)
[2017-02-27] MEDS: (Novolog) Insulin Aspart, Recombinant 100 u/ml 10 ml vial SC SCH ×7 (08:54→21:39)
--- NOTE | 2017-02-27 08:58 | CP.PCM.PN ---
<Mark Briceno - Last Filed: 02/27/17 08:55> Subjective - Date & Time of Evaluation Date of Evaluation: 02/27/17 Time of Evaluation: 08:55 - Subjective Subjective: Surgery: Dr. Green Patient complaining of pain at SC joint area and around to shoulder. Patient states the medication only helps for a short period of time. She denies f/c. She denies further drainage from wound on chest. Objective - Vital Signs/Intake and Output Vital Signs (last 24 hours): Temp Pulse Resp BP Pulse Ox 98.1 F 90 20 145/75 100 02/27/17 00:30 02/27/17 00:30 02/27/17 00:30 02/27/17 00:30 02/27/17 00:30 Intake and Output: 02/27/17 02/27/17 06:59 18:59 Intake Total 240 Balance 240 - Medications Medications: Current Medications Calcium Acetate (Phoslo) 667 mg PO TID [facility] Last Admin: 02/26/17 17:40 Dose: Not Given Clonidine HCl (Catapres-Tts3 0.3 Mg/24 Hr) 1 patch TD Q7D@1000 [facility] Last Admin: 02/23/17 10:49 Dose: 1 patch Diphenhydramine HCl (Benadryl) 25 mg IVP Q3 PRN PRN Reason: Itching / Pruritus Last Admin: 02/27/17 03:47 Dose: 25 mg Diphenhydramine HCl (Benadryl) 25 mg IVP Mo[facility] PRN PRN Reason: Itching / Pruritus Last Admin: 02/26/17 16:33 Dose: 25 mg Docusate Sodium (Colace) 100 mg PO TID [facility] Last Admin: 02/26/17 17:32 Dose: 100 mg Epoetin James (Procrit) 10,000 [place] [facility] [place] Admin: 02/26/17 15:56 Dose: 10,000 unit Ferric Sodium Gluconate Complex (Ferrlecit) 125 mg IVPB [facility] Stop: 02/27/17 14:31 Last Admin: 02/26/17 15:56 Dose: 125 mg Hydromorphone HCl (Dilaudid) 2 mg IVP Q3H PRN PRN Reason: pain Last Admin: 02/27/17 06:31 Dose: 2 mg Vancomycin HCl 0.5 gm/ Sodium (Chloride) 100 mls @ 100 mls/hr IVPB MWF [facility] Last Admin: 02/26/17 17:35 Dose: 100 mls/hr Insulin Aspart (Novolog) 0 unit SC ACHS [facility] PRN Reason: Protocol Last Admin: 02/27/17 08:54 Dose: Not Given Insulin Aspart (Novolog) 6 unit SC AC [facility] Last Admin: 02/27/17 08:54 Dose: Not Given Insulin Detemir (Levemir) 12 unit SC Q12 [facility] Last Admin: 02/26/17 21:39 Dose: 12 unit Metoclopramide HCl (Reglan) 10 mg PO DAILY [facility] Last Admin: 02/26/17 10:16 Dose: Not Given Nifedipine (Procardia Xl) 60 mg PO BID [facility] Last Admin: 02/26/17 17:32 Dose: 60 mg Ondansetron HCl (Zofran Inj) 4 mg IVP Q4H PRN PRN Reason: Nausea/Vomiting Last Admin: 02/27/17 06:33 Dose: 4 mg Pantoprazole Sodium (Protonix Ec Tab) 40 mg PO DAILY [facility] Last Admin: 02/26/17 10:03 Dose: Not Given Polyethylene Glycol (Miralax) 17 gm PO BID [facility] Last Admin: 02/26/17 18:38 Dose: Not Given Trimethobenzamide HCl (Tigan) 200 mg IM Q6 PRN PRN Reason: Nausea/Vomiting Last Admin: 02/27/17 01:24 Dose: 200 mg - Labs Labs: 02/26/17 14:37 02/26/17 14:37 PT 13.3 SECONDS (9.7-12.2) H 02/17/17 07:53 INR 1.2 02/17/17 07:53 - Constitutional Appears: Non-toxic, No Acute Distress - Head Exam Head Exam: ATRAUMATIC, NORMOCEPHALIC - Eye Exam Eye Exam: EOMI, Normal appearance - ENT Exam ENT Exam: Mucous Membranes Moist - Respiratory Exam Respiratory Exam: NORMAL BREATHING PATTERN. absent: Respiratory Distress Additional comments: SC joint incision, no drainage. no fluctuance. mildly tender to palpation. - Cardiovascular Exam Cardiovascular Exam: REGULAR RHYTHM. 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 Norma Griffin PGY3 <Yoel Green - Last Filed: 03/05/17 15:54> Objective - Vital Signs/Intake and Output Vital Signs (last 24 hours): Temp Pulse Resp BP Pulse Ox 98.2 F 106 H 20 132/68 98 03/04/17 08:59 03/04/17 08:59 03/04/17 08:59 03/04/17 08:59 03/04/17 08:59 - Labs Labs: 03/04/17 11:04 03/02/17 14:33 PT 13.3 SECONDS (9.7-12.2) H 02/17/17 07:53 INR 1.2 02/17/17 07:53 Attending/Attestation - Attestation I have personally seen and examined this patient.: Yes I have fully participated in the care of the patient.: Yes I have reviewed all pertinent clinical information, including history, physical exam and plan: Yes Notes (Text): 03/05/17 15:53 Pt was seen and examined at bedside on 02/27/17 Agree with above note and assessment No acute general surgical intervention required at present Plan as per orthopedic surgeon. Risk and benefit explained in detail.
--- NOTE | 2017-02-27 10:23 | CP.PCM.PN ---
Subjective - Date & Time of Evaluation Date of Evaluation: 02/27/17 Time of Evaluation: 07:20 - Subjective Subjective: clinically same Objective - Vital Signs/Intake and Output Vital Signs (last 24 hours): Temp Pulse Resp BP Pulse Ox 98.1 F 90 20 145/75 100 02/27/17 00:30 02/27/17 00:30 02/27/17 00:30 02/27/17 00:30 02/27/17 00:30 Intake and Output: 02/27/17 02/27/17 06:59 18:59 Intake Total 240 Balance 240 - Medications Medications: Current Medications Calcium Acetate (Phoslo) 667 mg PO ACTID [facility] Clonidine HCl (Catapres-Tts3 0.3 Mg/24 Hr) 1 patch TD Q7D@1000 [facility] Last Admin: 02/23/17 10:49 Dose: 1 patch Diphenhydramine HCl (Benadryl) 25 mg IVP Q3 PRN PRN Reason: Itching / Pruritus Last Admin: 02/27/17 03:47 Dose: 25 mg Diphenhydramine HCl (Benadryl) 25 mg IVP [facility] PRN PRN Reason: Itching / Pruritus Last Admin: 02/26/17 16:33 Dose: 25 mg Docusate Sodium (Colace) 100 mg PO TID [facility] Last Admin: 02/26/17 17:32 Dose: 100 mg Epoetin James (Procrit) 10,000 unit IV [facility] [place] Last Admin: 02/26/17 15:56 Dose: 10,000 unit Ferric Sodium Gluconate Complex (Ferrlecit) 125 mg IVPB [facility] [place] Stop: 02/27/17 14:31 Last Admin: 02/26/17 15:56 Dose: 125 mg Hydromorphone HCl (Dilaudid) 2 mg IVP Q3H PRN PRN Reason: pain Last Admin: 02/27/17 10:16 Dose: 2 mg Vancomycin HCl 0.5 gm/ Sodium (Chloride) 100 mls @ 100 mls/hr IVPB [facility] [place] Last Admin: 02/26/17 17:35 Dose: 100 mls/hr Insulin Aspart (Novolog) 0 unit SC ACHS [facility] PRN Reason: Protocol Last Admin: 02/27/17 08:54 Dose: Not Given Insulin Aspart (Novolog) 6 unit SC AC [facility] Last Admin: 02/27/17 08:54 Dose: Not Given Insulin Detemir (Levemir) 12 unit SC Q12 [facility] Last Admin: 02/26/17 21:39 Dose: 12 unit Metoclopramide HCl (Reglan) 10 mg PO DAILY [facility] Last Admin: 02/26/17 10:16 Dose: Not Given Nifedipine (Procardia Xl) 60 mg PO BID [facility] Last Admin: 02/26/17 17:32 Dose: 60 mg Ondansetron HCl (Zofran Inj) 4 mg IVP Q4H PRN PRN Reason: Nausea/Vomiting Last Admin: 02/27/17 06:33 Dose: 4 mg Pantoprazole Sodium (Protonix Ec Tab) 40 mg PO DAILY [facility] Last Admin: 02/26/17 10:03 Dose: Not Given Polyethylene Glycol (Miralax) 17 gm PO BID [facility] Last Admin: 02/26/17 18:38 Dose: Not Given Trimethobenzamide HCl (Tigan) 200 mg IM Q6 PRN PRN Reason: Nausea/Vomiting Last Admin: 02/27/17 01:24 Dose: 200 mg - Labs Labs: 02/26/17 14:37 02/26/17 14:37 PT 13.3 SECONDS (9.7-12.2) H 02/17/17 07:53 INR 1.2 02/17/17 07:53 - Constitutional Appears: Well - Head Exam Head Exam: ATRAUMATIC, NORMAL INSPECTION, NORMOCEPHALIC - Eye Exam Eye Exam: EOMI, Normal appearance, PERRL Pupil Exam: NORMAL ACCOMODATION, PERRL - ENT Exam ENT Exam: Mucous Membranes Moist, Normal Exam - Neck Exam Neck Exam: Full ROM, Normal Inspection. absent: Lymphadenopathy - Respiratory Exam Respiratory Exam: Decreased Breath Sounds - Cardiovascular Exam Cardiovascular Exam: REGULAR RHYTHM, +S1, +S2 - GI/Abdominal Exam GI & Abdominal Exam: Soft, Diminished Bowel Sounds - Rectal Exam Rectal Exam: Deferred
[2017-02-27] MEDS ORDERED: HYDROmorphone 1 mg/ml ISec IVP STA (10:28)
[2017-02-27] MEDS: NIFEdipine 60 mg ER Tab PO SCH ×2 (10:57→17:07)
[2017-02-27] MEDS: Pantoprazole 40 mg EC Tab PO SCH (10:58)
[2017-02-27] MEDS: POLYETHYLENE GLYCOL 3350 17 GM/Dose PACKET PO SCH ×2 (10:59→17:02)
[2017-02-27] MEDS: Insulin Detemir 100 units/ml Vial (Levemir) SC SCH ×2 (11:05→21:40)
--- NOTE | 2017-02-27 12:31 | CP.PCM.PN ---
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 she was later transferred to [facility] and had some drainage/ debridement done She was treated for over 6 weeks with Cubicin every other day despite this she remins septic with positive blood cultures and CT findings showing destruction of clavicle and sternoclavicular joint Objective - Vital Signs/Intake and Output Vital Signs (last 24 hours): Temp Pulse Resp BP Pulse Ox 99.1 F 102 H 20 154/62 H 98 02/27/17 10:52 02/27/17 10:52 02/27/17 10:52 02/27/17 10:52 02/27/17 10:52 Intake and Output: 02/27/17 02/27/17 06:59 18:59 Intake Total 240 Balance 240 - Medications Medications: Current Medications Calcium Acetate (Phoslo) 667 mg PO ACTID [facility] Clonidine HCl (Catapres-Tts3 0.3 Mg/24 Hr) 1 patch TD Q7D@1000 [facility] Last Admin: 02/23/17 10:49 Dose: 1 patch Diphenhydramine HCl (Benadryl) 25 mg IVP Q3 PRN PRN Reason: Itching / Pruritus Last Admin: 02/27/17 10:16 Dose: 25 mg Diphenhydramine HCl (Benadryl) 25 mg IVP MoWeFrSa PRN PRN Reason: Itching / Pruritus Last Admin: 02/26/17 16:33 Dose: 25 mg Docusate Sodium (Colace) 100 mg PO TID [facility] Last Admin: 02/27/17 10:57 Dose: 100 mg Epoetin James (Procrit) 10,000 unit [place] [facility] [place] Last Admin: 02/26/17 15:56 Dose: 10,000 unit Ferric Sodium Gluconate Complex (Ferrlecit) 125 mg IVPB [facility] [place] Stop: 02/27/17 14:31 Last Admin: 02/26/17 15:56 Dose: 125 mg Hydromorphone HCl (Dilaudid) 2 mg IVP Q3H PRN PRN Reason: pain Last Admin: 02/27/17 10:16 Dose: 2 mg Vancomycin HCl 0.5 gm/ Sodium (Chloride) 100 mls @ 100 mls/hr IVPB MWF [facility] Last Admin: 02/26/17 17:35 Dose: 100 mls/hr Insulin Aspart (Novolog) 0 unit SC ACHS [facility] PRN Reason: Protocol Last Admin: 02/27/17 08:54 Dose: Not Given Insulin Aspart (Novolog) 6 unit SC AC [facility] Last Admin: 02/27/17 08:54 Dose: Not Given Insulin Detemir (Levemir) 12 unit SC Q12 [facility] Last Admin: 02/27/17 11:05 Dose: 12 unit Metoclopramide HCl (Reglan) 10 mg PO DAILY [facility] Last Admin: 02/27/17 10:58 Dose: 10 mg Nifedipine (Procardia Xl) 60 mg PO BID [facility] Last Admin: 02/27/17 10:57 Dose: 60 mg Ondansetron HCl (Zofran Inj) 4 mg IVP Q4H PRN PRN Reason: Nausea/Vomiting Last Admin: 02/27/17 06:33 Dose: 4 mg Pantoprazole Sodium (Protonix Ec Tab) 40 mg PO DAILY [facility] Last Admin: 02/27/17 10:58 Dose: 40 mg Polyethylene Glycol (Miralax) 17 gm PO BID [facility] Last Admin: 02/27/17 10:59 Dose: Not Given Trimethobenzamide HCl (Tigan) 200 mg IM Q6 PRN PRN Reason: Nausea/Vomiting Last Admin: 02/27/17 01:24 Dose: 200 mg - Labs Labs: 02/26/17 14:37 02/26/17 14:37 PT 13.3 SECONDS (9.7-12.2) H 02/17/17 07:53 INR 1.2 02/17/17 07:53 - Constitutional Appears: Non-toxic, Chronically Ill - Head Exam Head Exam: NORMOCEPHALIC - Eye Exam Eye Exam: PERRL. absent: Scleral icterus - ENT Exam ENT Exam: Mucous Membranes Dry, Normal External Ear Exam - Neck Exam Neck Exam: absent: Lymphadenopathy - Respiratory Exam Respiratory Exam: Decreased Breath Sounds, Rhonchi - Cardiovascular Exam Cardiovascular Exam: Tachycardia, REGULAR RHYTHM, +S1, +S2 - GI/Abdominal Exam GI & Abdominal Exam: Distended, Soft Assessment and Plan (1) Bacteremia Status: Acute (2) Chest pain Status: Acute - Assessment and Plan (Free Text) Plan: consider ortho eval/ KAMRAN
[2017-02-28] MEDS: DiphenhydrAMINE 50 mg/ml Inj IVP PRN ×9 (01:43→23:16)
[2017-02-28] MEDS: Trimethobenzamide 200 mg/2 mL Inj IM PRN ×2 (05:01→17:08)
[2017-02-28] MEDS: (Novolog) Insulin Aspart, Recombinant 100 u/ml 10 ml vial SC SCH ×7 (08:40→21:49)
[2017-02-28] MEDS: Insulin Detemir 100 units/ml Vial (Levemir) SC SCH ×2 (09:13→21:49)
[2017-02-28] MEDS: POLYETHYLENE GLYCOL 3350 17 GM/Dose PACKET PO SCH ×2 (09:13→17:18)
[2017-02-28] MEDS: Pantoprazole 40 mg EC Tab PO SCH (09:14)
[2017-02-28] MEDS: NIFEdipine 60 mg ER Tab PO SCH ×2 (09:14→17:22)
[2017-02-28] MEDS: Epoetin Alfa 10,000 unit/ml Dialysis IV SCH (13:48)
[2017-02-28 13:52] LABS: BASO # 0.1 K/uL (0.0-0.2); EOS # 1.1 K/uL (0.0-0.7); LYMPH # 1.1 K/uL (1.0-4.3); WHITE BLOOD COUNT 10.6 K/uL (4.8-10.8)
[2017-02-28 13:56] LABS: MONO # 0.9 K/uL (0.0-0.8); NRBC % 0.1 % (0.0-2.0)
[2017-02-28 13:59] LABS: BASO % 0.9 % (0.0-2.0); EOS % 10.4 % (0.0-4.0); HEMOGLOBIN 8.2 g/dL (11.0-16.0); LYMPH % 10.2 % (20.0-40.0); MEAN CORPUSCULAR HEMOGLOBIN 31.6 pg (27.0-31.0); MEAN CORPUSCULAR HGB CONC 33.3 g/dL (33.0-37.0); MEAN PLATELET VOLUME 7.5 fL (7.2-11.7); MONO % 8.4 % (0.0-10.0); NEUT # 7.5 K/uL (1.8-7.0); NEUT % 70.1 % (50.0-75.0); RBC 2.58 Mil/uL (3.80-5.20); RED CELL DISTRIBUTION WIDTH 16.7 % (11.5-14.5)
[2017-02-28 14:05] LABS: ALBUMIN 3.9 g/dL (3.5-5.0)
[2017-02-28 14:08] LABS: GFR AFRICAN-AMERICAN 7; GFR NON-AFRICAN AMERICAN 6
[2017-02-28 14:09] LABS: ALB/GLOB RATIO 0.9 (1.0-2.1); ALT/SGPT 21 U/L (9-52); AST/SGOT 20 U/L (14-36); BLOOD UREA NITROGEN 84 mg/dL (7-17); CALCIUM 7.2 mg/dl (8.6-10.4)
--- NOTE | 2017-02-28 14:53 | CP.PCM.PN ---
Subjective - Date & Time of Evaluation Date of Evaluation: 02/28/17 Time of Evaluation: 07:20 - Subjective Subjective: clinically same Objective - Vital Signs/Intake and Output Vital Signs (last 24 hours): Temp Pulse Resp BP Pulse Ox 97.8 F 109 H 20 159/96 H 100 02/28/17 13:30 02/28/17 13:30 02/28/17 13:30 02/28/17 14:15 02/28/17 13:30 Intake and Output: 02/28/17 02/28/17 06:59 18:59 Intake Total 250 360 Balance 250 360 - Medications Medications: Current Medications Calcium Acetate (Phoslo) 667 mg PO ACTID [facility] Last Admin: 02/28/17 11:45 Dose: Not Given Clonidine HCl (Catapres-Tts3 0.3 Mg/24 Hr) 1 patch TD Q7D@1000 [facility] Last Admin: 02/23/17 10:49 Dose: 1 patch Diphenhydramine HCl (Benadryl) 25 mg IVP Q3 PRN PRN Reason: Itching / Pruritus Last Admin: 02/28/17 14:06 Dose: 25 mg Diphenhydramine HCl (Benadryl) 25 mg IVP MoWeFrSa PRN PRN Reason: Itching / Pruritus Last Admin: 02/28/17 14:33 Dose: 25 mg Docusate Sodium (Colace) 100 mg PO TID [facility] Last Admin: 02/28/17 14:08 Dose: Not Given Epoetin James (Procrit) 10,000 unit IV [facility] [place] Last Admin: 02/28/17 13:48 Dose: 10,000 unit Hydromorphone HCl (Dilaudid) 2 mg IVP Q3H PRN PRN Reason: pain Last Admin: 02/28/17 14:06 Dose: 2 mg Vancomycin HCl 0.5 gm/ Sodium (Chloride) 100 mls @ 100 mls/hr IVPB MWF [facility] Last Admin: 02/26/17 17:35 Dose: 100 mls/hr Insulin Aspart (Novolog) 0 unit SC ACHS [facility] PRN Reason: Protocol Last Admin: 02/28/17 11:44 Dose: Not Given Insulin Aspart (Novolog) 6 unit SC AC [facility] Last Admin: 02/28/17 11:44 Dose: Not Given Insulin Detemir (Levemir) 12 unit SC Q12 [facility] Last Admin: 02/28/17 09:13 Dose: Not Given Metoclopramide HCl (Reglan) 10 mg PO DAILY [facility] Last Admin: 02/28/17 09:16 Dose: Not Given Nifedipine (Procardia Xl) 60 mg PO BID [facility] Last Admin: 02/28/17 09:14 Dose: Not Given Ondansetron HCl (Zofran Inj) 4 mg IVP Q4H PRN PRN Reason: Nausea/Vomiting Last Admin: 02/28/17 01:48 Dose: 4 mg Pantoprazole Sodium (Protonix Ec Tab) 40 mg PO DAILY [facility] Last Admin: 02/28/17 09:14 Dose: Not Given Polyethylene Glycol (Miralax) 17 gm PO BID [facility] Last Admin: 02/28/17 09:13 Dose: Not Given Trimethobenzamide HCl (Tigan) 200 mg IM Q6 PRN PRN Reason: Nausea/Vomiting Last Admin: 02/28/17 05:01 Dose: 200 mg - Labs Labs: 02/28/17 13:47 02/28/17 13:47 PT 13.3 SECONDS (9.7-12.2) H 02/17/17 07:53 INR 1.2 02/17/17 07:53 - Constitutional Appears: Well - Head Exam Head Exam: ATRAUMATIC, NORMAL INSPECTION, NORMOCEPHALIC - Eye Exam Eye Exam: EOMI, Normal appearance, PERRL Pupil Exam: NORMAL ACCOMODATION, PERRL - ENT Exam ENT Exam: Mucous Membranes Moist, Normal Exam - Neck Exam Neck Exam: Full ROM, Normal Inspection. absent: Lymphadenopathy - Respiratory Exam Respiratory Exam: Decreased Breath Sounds - Cardiovascular Exam Cardiovascular Exam: REGULAR RHYTHM, +S1, +S2 - GI/Abdominal Exam GI & Abdominal Exam: Soft, Diminished Bowel Sounds - Rectal Exam Rectal Exam: Deferred
[2017-02-28] MEDS: Vancomycin 0.5 GM in Sodium Chloride 0.9% 100 ML IVPB SCH (17:22)
--- NOTE | 2017-02-28 18:35 | CP.PCM.PN ---
Subjective - Date & Time of Evaluation Date of Evaluation: 02/28/17 Time of Evaluation: 08:00 - Subjective Subjective: awaiting KAMRAN may need valve replacement Dr Santos on board Objective - Vital Signs/Intake and Output Vital Signs (last 24 hours): Temp Pulse Resp BP Pulse Ox 97.8 F 108 H 20 108/63 100 02/28/17 16:30 02/28/17 16:30 02/28/17 16:30 02/28/17 16:30 02/28/17 16:30 Intake and Output: 02/28/17 02/28/17 06:59 18:59 Intake Total 250 360 Balance 250 360 - Medications Medications: Current Medications Calcium Acetate (Phoslo) 667 mg PO ACTID [facility] Last Admin: 02/28/17 17:19 Dose: Not Given Clonidine HCl (Catapres-Tts3 0.3 Mg/24 Hr) 1 patch TD Q7D@1000 [facility] Last Admin: 02/23/17 10:49 Dose: 1 patch Diphenhydramine HCl (Benadryl) 25 mg IVP Q3 PRN PRN Reason: Itching / Pruritus Last Admin: 02/28/17 17:00 Dose: 25 mg Diphenhydramine HCl (Benadryl) 25 mg IVP MoWeFrSa PRN PRN Reason: Itching / Pruritus Last Admin: 02/28/17 14:33 Dose: 25 mg Docusate Sodium (Colace) 100 mg PO TID [facility] Last Admin: 02/28/17 17:18 Dose: 100 mg Epoetin James (Procrit) 10,000 unit IV MWF [facility] Last Admin: 02/28/17 13:48 Dose: 10,000 unit Hydromorphone HCl (Dilaudid) 2 mg IVP Q3H PRN PRN Reason: pain Last Admin: 02/28/17 17:00 Dose: 2 mg Vancomycin HCl 0.75 gm/ Sodium (Chloride) 250 mls @ 166.7 mls/hr IVPB MWF [facility] Insulin Aspart (Novolog) 0 unit SC ACHS [facility] PRN Reason: Protocol Last Admin: 02/28/17 17:17 Dose: 2 unit Insulin Aspart (Novolog) 6 unit SC AC [facility] Last Admin: 02/28/17 17:17 Dose: 6 unit Insulin Detemir (Levemir) 12 unit SC Q12 [facility] Last Admin: 02/28/17 09:13 Dose: Not Given Metoclopramide HCl (Reglan) 10 mg PO DAILY [facility] Last Admin: 02/28/17 09:16 Dose: Not Given Nifedipine (Procardia Xl) 60 mg PO BID [facility] Last Admin: 02/28/17 17:22 Dose: 60 mg Ondansetron HCl (Zofran Inj) 4 mg IVP Q4H PRN PRN Reason: Nausea/Vomiting Last Admin: 02/28/17 01:48 Dose: 4 mg Pantoprazole Sodium (Protonix Ec Tab) 40 mg PO DAILY [facility] Last Admin: 02/28/17 09:14 Dose: Not Given Polyethylene Glycol (Miralax) 17 gm PO BID [facility] Last Admin: 02/28/17 17:18 Dose: Not Given Trimethobenzamide HCl (Tigan) 200 mg IM Q6 PRN PRN Reason: Nausea/Vomiting Last Admin: 02/28/17 17:08 Dose: 200 mg - Labs Labs: 02/28/17 13:47 02/28/17 13:47 PT 13.3 SECONDS (9.7-12.2) H 02/17/17 07:53 INR 1.2 02/17/17 07:53 - Constitutional Appears: Non-toxic, Chronically Ill - Head Exam Head Exam: NORMOCEPHALIC - Eye Exam Eye Exam: PERRL. absent: Scleral icterus - ENT Exam ENT Exam: Mucous Membranes Dry, Normal External Ear Exam - Neck Exam Neck Exam: absent: Lymphadenopathy - Respiratory Exam Respiratory Exam: Decreased Breath Sounds - Cardiovascular Exam Cardiovascular Exam: REGULAR RHYTHM - GI/Abdominal Exam GI & Abdominal Exam: Distended, Soft Assessment and Plan (1) Bacteremia Status: Acute (2) Chest pain Status: Acute
[2017-02-28] MEDS ORDERED: Alum-Mag Hydrox-Simethicone Susp (30 mL) PO ONE (23:39)
--- NOTE | 2017-03-01 00:18 | CP.PCM.CON ---
History of Present Illness - History of Present Illness History of Present Illness: 31 yo Female w/ PMH= DM, ESRD on HD, PUD, gastroparesis, esophagial candidiasis , s/p I&D and treatment for Left sided sternoclavicular osteomyelitis over the past 2 months at [facility] presented to the ER on 02/16/17 w/ vomiting prior to scheduled outpt dialysis at ER. She was admitted and treated for her ESRD and gastroparesis and an orthopedic consultation was placed for Left sided sternalclavicular pain. She was just discharged from [facility] last week after 2 month admission (per pt) where she underwent multiple I&D for osteomyelitis of the sternoclavicular joitn by thoracic surgery team at [facility]. She reports pain localized to the Left SC joint surgical wound with mild drainage unchanged since surgery and discharge from [facility]. She admits to tingling in B/L UE/ fingers that is also unchanged for her since prior to surgery, she has been told that she has a disc herniation while at [facility]. Review of imaging: CT chest done at on 02/23/17: Findings consistent with infectious arthritis of the left sternoclavicular joint. Gross destruction of the left side of the manubrium sternum with bony fragmentation. Articular erosion/ destruction of the medial left clavicular head. Questionable soft tissue extension into the anterior mediastinum. Evaluation limited by the absence of intravenous contrast administration. Extensive abnormal soft tissue surrounding the sternoclavicular articulation with ill-defined central low-attenuation up to 3.2 cm in diameter suggestive of abscess. Left supraclavicular lymphadenopathy. Past Patient History - Infectious Disease Hx of Infectious Diseases: None - Tetanus Immunizations Tetanus Immunization: Unknown - Past Medical History & Family History Past Medical History?: Yes - Past Social History Smoking Status: Never Smoked - CARDIAC Hx Congestive Heart Failure: Yes ([place]) Hx Hypercholesterolemia: Yes Hx Hypertension: Yes Hx Peripheral Edema: Yes - NEUROLOGICAL Hx Seizures: Yes - HEENT Hx HEENT Problems: Yes Hx Cataracts: Yes Hx Glaucoma: Yes - RENAL Hx Chronic Kidney Disease: Yes Hx Kidney Stones: Yes - ENDOCRINE/METABOLIC Hx Hyperthyroidism: Yes Hx Hypothyroidism: Yes - HEMATOLOGICAL/ONCOLOGICAL Hx Anemia: Yes - INTEGUMENTARY Hx Dermatological Problems: Yes Other/Comment: DRY ITCHY SKIN ;multiple/generalized dark spots on skin - MUSCULOSKELETAL/RHEUMATOLOGICAL Hx Fractures: Yes (Sep 2012 L foot) - GASTROINTESTINAL Hx Gall Bladder Disease: Yes (gallbladder removed) Hx Gastritis: Yes Hx Pancreatitis: Yes (chronic) - GENITOURINARY/GYNECOLOGICAL Hx Genitourinary Disorders: No - PSYCHIATRIC Hx Anxiety: Yes Hx Substance Use: No - SURGICAL HISTORY Hx Cholecystectomy: Yes Hx Coronary Stent: Yes - ANESTHESIA Hx Anesthesia: Yes Hx Anesthesia Reactions: No Hx Malignant Hyperthermia: No Has any member of the family had a problem w/ anesthesia?: No Meds Allergies/Adverse Reactions: Allergies Allergy/AdvReac Type Severity Reaction Status Date / Time ketorolac tromethamine Allergy RASH Verified 02/16/17 14:57 [From Toradol] latex Allergy RASH Verified 02/16/17 14:57 morphine Allergy RASH Verified 02/16/17 14:57 tramadol Allergy RASH Verified 02/16/17 14:57 - Medications Medications: Current Medications Calcium Acetate (Phoslo) 667 mg PO ACTID [facility] Last Admin: 02/28/17 17:19 Dose: Not Given Clonidine HCl (Catapres-Tts3 0.3 Mg/24 Hr) 1 patch TD Q7D@1000 [facility] Last Admin: 02/23/17 10:49 Dose: 1 patch Diphenhydramine HCl (Benadryl) 25 mg IVP Q3 PRN PRN Reason: Itching / Pruritus Last Admin: 02/28/17 23:16 Dose: 25 mg Diphenhydramine HCl (Benadryl) 25 mg IVP MoWeFrSa PRN PRN Reason: Itching / Pruritus Last Admin: 02/28/17 14:33 Dose: 25 mg Docusate Sodium (Colace) 100 mg PO TID [facility] Last Admin: 02/28/17 17:18 Dose: 100 mg Epoetin James (Procrit) 10,000 unit IV F [facility] Last Admin: 02/28/17 13:48 Dose: 10,000 unit Hydromorphone HCl (Dilaudid) 2 mg IVP Q3H PRN PRN Reason: pain Last Admin: 02/28/17 23:17 Dose: 2 mg Vancomycin HCl 750 mg/ Sodium (Chloride) 250 mls @ 166.7 mls/hr IVPB [facility] [place] Insulin Aspart (Novolog) 0 unit SC [facility] PRN Reason: Protocol Last Admin: 02/28/17 21:49 Dose: Not Given Insulin Aspart (Novolog) 6 unit SC AC [facility] Last Admin: 02/28/17 17:17 Dose: 6 unit Insulin Detemir (Levemir) 12 unit SC Q12 [facility] Last Admin: 02/28/17 21:49 Dose: 12 unit Metoclopramide HCl (Reglan) 10 mg PO DAILY [facility] Last Admin: 02/28/17 09:16 Dose: Not Given Nifedipine (Procardia Xl) 60 mg PO BID [facility] Last Admin: 02/28/17 17:22 Dose: 60 mg Ondansetron HCl (Zofran Inj) 4 mg IVP Q4H PRN PRN Reason: Nausea/Vomiting Last Admin: 02/28/17 01:48 Dose: 4 mg Pantoprazole Sodium (Protonix Ec Tab) 40 mg PO DAILY [facility] Last Admin: 02/28/17 09:14 Dose: Not Given Polyethylene Glycol (Miralax) 17 gm PO BID [facility] Last Admin: 02/28/17 17:18 Dose: Not Given Trimethobenzamide HCl (Tigan) 200 mg IM Q6 PRN PRN Reason: Nausea/Vomiting Last Admin: 02/28/17 17:08 Dose: 200 mg Physical Exam - Extremities Exam Additional comments: Right Upper Extremity: - ttp, - swelling/warmth/redness, FROM at all joints w/o pain +5/5 motor strength shoulder FF/Abd/IR/ER, elbow flex/ext, wrist sup/pron/flex/ ext, finger flex/ext/abd/add sensory intact C5-T1, RN/MN/MSCN/AxN/UN 2+ RA, BCR all fingers Left Upper Extremity: ++ surgical wound at left side of sternal clavicular joint with mild serous drainage, no evidence of pus or wound dehescence + ttp at surgical wound, - swelling, + mild blanching erythema directly surrounding wound. + 5/5 motor strength shoulder FF/Abd/ER/IR, elbow flex/ext, wrist sup/pron/flex/ ext, finger ext/flex/abd/add sensory intact C5-T1, RN/MN/MSCN/AxN/UN 2+ RA, BCR all fingers Results - Vital Signs Recent Vital Signs: Last Vital Signs Temp 97.8 F 02/28/17 16:30 Pulse 108 H 02/28/17 16:30 Resp 20 02/28/17 16:30 BP 108/63 02/28/17 16:30 Pulse Ox 100 02/28/17 16:30 - Labs Result Diagrams: 02/28/17 13:47 02/28/17 13:47 Labs: Laboratory Results - last 24 hr 02/28/17 02/28/17 02/28/17 07:49 11:39 13:47 WBC 10.6 RBC 2.58 L Hgb 8.2 L Hct 24.5 L MCV 95.0 D MCH 31.6 H MCHC 33.3 RDW 16.7 H Plt Count 465 H MPV 7.5 Neut % (Auto) 70.1 Lymph % (Auto) 10.2 L [place] % (Auto) 8.4 Eos % (Auto) 10.4 H Baso % (Auto) 0.9 Neut # 7.5 H Lymph # 1.1 [place] # 0.9 H Eos # 1.1 H Baso # 0.1 Sodium Potassium Chloride Carbon Dioxide Anion Gap BUN Creatinine Est GFR ( Amer) Est GFR (Non-Af Amer) POC Glucose (mg/dL) 173 H 112 H Random Glucose Calcium Total Bilirubin AST ALT Alkaline Phosphatase Total Protein Albumin Globulin Albumin/Globulin Ratio 02/28/17 02/28/17 02/28/17 13:47 16:05 21:44 WBC RBC Hgb Hct MCV MCH MCHC RDW Plt Count MPV Neut % (Auto) Lymph % (Auto) [place] % (Auto) Eos % (Auto) Baso % (Auto) Neut # Lymph # [place] # Eos # Baso # Sodium 133 Potassium 5.2 Chloride 92 L Carbon Dioxide 18 L Anion Gap 28 H BUN 84 H Creatinine 8.2 H* Est GFR ( Amer) 7 Est GFR (Non-Af Amer) 6 POC Glucose (mg/dL) 215 H 330 H Random Glucose 201 H Calcium 7.2 L Total Bilirubin 0.5 AST 20 ALT 21 Alkaline Phosphatase 170 H Total Protein 8.1 Albumin 3.9 Globulin 4.3 H Albumin/Globulin Ratio 0.9 L Assessment & Plan (1) Pain Status: Chronic (2) Sternal osteomyelitis Assessment and Plan: 31 yo female with multiple numerous medical problems associated with DM and ESRD as well as documented drug seeking behavior presented to the ER at on 11/17/16 w/ vomiting prior to scheduled HD Orthopedic consultation placed for sternal pain Dx= Left sided sternoclavicualr osteomyeltis s/p multiple I&D of Left SC joint and sternum to treat osteomyelitis of sternum at [facility] over the past 2 months by thoracic surgery team PLAN: -there is no orthopedic surgery intervention indicated in this patient -this pt needs thoracic surgery consult vs transfer to [facility] to followup under the care of the thoracic surgeon that has been surgically treating her -it is unclear if there is a thoracic surgeon on staff currently at -surgical treatment of sternal osteomyelitis is beyond the scope of general orthopedic practice and requires the care of a thoracic surgeon -if the pt can be dc home on IV abx, as she has HD outpt tx where IV abs can be administered, then she can followup at [facility] with the thoracic surgery team as outpt as she was initially instructed on dc from [facility] but failed to be compliant -continue ID recommendations in the interim -if there is anything else that I can contribute to the care of this pt, please contact me at [phone] Thank you for allowing me to contribute to the care of your patient. Nickie oWlf MD Orthopedic Surgery Status: Acute
[2017-03-01] MEDS: DiphenhydrAMINE 50 mg/ml Inj IVP PRN ×7 (02:17→21:00)
[2017-03-01] MEDS: Trimethobenzamide 200 mg/2 mL Inj IM PRN (04:40)
[2017-03-01] MEDS: (Novolog) Insulin Aspart, Recombinant 100 u/ml 10 ml vial SC SCH ×7 (08:08→22:35)
[2017-03-01] MEDS: Pantoprazole 40 mg EC Tab PO SCH (09:05)
[2017-03-01] MEDS: Insulin Detemir 100 units/ml Vial (Levemir) SC SCH ×2 (09:05→22:34)
[2017-03-01] MEDS: POLYETHYLENE GLYCOL 3350 17 GM/Dose PACKET PO SCH ×2 (09:05→18:45)
[2017-03-01] MEDS: NIFEdipine 60 mg ER Tab PO SCH ×2 (09:05→17:58)
[2017-03-01] MEDS ORDERED: Lidocaine 4% (Laryng-O-Jet) Kit MM ONE (11:32)
--- NOTE | 2017-03-01 18:51 | CP.PCM.PN ---
Subjective - Date & Time of Evaluation Date of Evaluation: 03/01/17 Time of Evaluation: 15:00 - Subjective Subjective: SEEN ON RENAL F/U STILL WITH LOCAL PAIN ON HD M W F AND SAT ALL PREVIOUS EMR REVIEWED Objective - Vital Signs/Intake and Output Vital Signs (last 24 hours): Temp Pulse Resp BP Pulse Ox 97.3 F L 106 H 20 143/71 100 03/01/17 15:00 03/01/17 15:00 03/01/17 15:00 03/01/17 15:00 03/01/17 15:00 Intake and Output: 03/01/17 03/01/17 06:59 18:59 Intake Total 300 Output Total 0 Balance 300 - Medications Medications: Current Medications Calcium Acetate (Phoslo) 667 mg PO ACTID [facility] Last Admin: 03/01/17 12:09 Dose: Not Given Clonidine HCl (Catapres-Tts3 0.3 Mg/24 Hr) 1 patch TD Q7D@1000 [facility] Last Admin: 02/23/17 10:49 Dose: 1 patch Diphenhydramine HCl (Benadryl) 25 mg IVP Q3 PRN PRN Reason: Itching / Pruritus Last Admin: 03/01/17 18:00 Dose: 25 mg Diphenhydramine HCl (Benadryl) 25 mg IVP MoWeFrSa PRN PRN Reason: Itching / Pruritus Last Admin: 02/28/17 14:33 Dose: 25 mg Docusate Sodium (Colace) 100 mg PO TID [facility] Last Admin: 03/01/17 17:58 Dose: 100 mg Epoetin James (Procrit) 10,000 unit IV [facility] [place] Last Admin: 02/28/17 13:48 Dose: 10,000 unit Hydromorphone HCl (Dilaudid) 2 mg IVP Q3H PRN PRN Reason: pain Last Admin: 03/01/17 18:00 Dose: 2 mg Vancomycin HCl 750 mg/ Sodium (Chloride) 250 mls @ 166.7 mls/hr IVPB [facility] [place] Insulin Aspart (Novolog) 0 unit SC ACHS [facility] PRN Reason: Protocol Last Admin: 03/01/17 17:10 Dose: 5 unit Insulin Aspart (Novolog) 6 unit SC AC [facility] Last Admin: 03/01/17 17:11 Dose: 6 unit Insulin Detemir (Levemir) 12 unit SC Q12 [facility] Last Admin: 03/01/17 09:05 Dose: Not Given Metoclopramide HCl (Reglan) 10 mg PO DAILY [facility] Last Admin: 03/01/17 09:06 Dose: Not Given Nifedipine (Procardia Xl) 60 mg PO BID [facility] Last Admin: 03/01/17 17:58 Dose: 60 mg Ondansetron HCl (Zofran Inj) 4 mg IVP Q4H PRN PRN Reason: Nausea/Vomiting Last Admin: 03/01/17 02:26 Dose: 4 mg Pantoprazole Sodium (Protonix Ec Tab) 40 mg PO DAILY [facility] Last Admin: 03/01/17 09:05 Dose: Not Given Polyethylene Glycol (Miralax) 17 gm PO BID [facility] Last Admin: 03/01/17 09:05 Dose: Not Given Trimethobenzamide HCl (Tigan) 200 mg IM Q6 PRN PRN Reason: Nausea/Vomiting Last Admin: 03/01/17 04:40 Dose: 200 mg - Labs Labs: 02/28/17 13:47 02/28/17 13:47 PT 13.3 SECONDS (9.7-12.2) H 02/17/17 07:53 INR 1.2 02/17/17 07:53 Assessment and Plan - Assessment and Plan (Free Text) Assessment: ESRD ON HD M W F AND SAT .. TO BE C/O SEPSIS ON AVAB ANEMIA OF CKD .. ON EPO AND FERRLICIT MULTIPLE CO MORBIDITIES P : C/O CURRENT CARE C/O PRESENT MANAGEMENT FOR KAMRAN PER DR DENNIS
--- NOTE | 2017-03-01 20:13 | CP.PCM.PN ---
Subjective - Date & Time of Evaluation Date of Evaluation: 03/01/17 Time of Evaluation: 09:00 - Subjective Subjective: clinically same Objective - Vital Signs/Intake and Output Vital Signs (last 24 hours): Temp Pulse Resp BP Pulse Ox 97.3 F L 106 H 20 143/71 100 03/01/17 15:00 03/01/17 15:00 03/01/17 15:00 03/01/17 15:00 03/01/17 15:00 - Medications Medications: Current Medications Calcium Acetate (Phoslo) 667 mg PO ACTID [facility] Last Admin: 03/01/17 17:20 Dose: Not Given Clonidine HCl (Catapres-Tts3 0.3 Mg/24 Hr) 1 patch TD Q7D@1000 [facility] Last Admin: 02/23/17 10:49 Dose: 1 patch Diphenhydramine HCl (Benadryl) 25 mg IVP Q3 PRN PRN Reason: Itching / Pruritus Last Admin: 03/01/17 18:00 Dose: 25 mg Diphenhydramine HCl (Benadryl) 25 mg IVP MoWeFrSa PRN PRN Reason: Itching / Pruritus Last Admin: 02/28/17 14:33 Dose: 25 mg Docusate Sodium (Colace) 100 mg PO TID [facility] Last Admin: 03/01/17 17:58 Dose: 100 mg Epoetin James (Procrit) 10,000 unit IV MWF [facility] Last Admin: 02/28/17 13:48 Dose: 10,000 unit Hydromorphone HCl (Dilaudid) 2 mg IVP Q3H PRN PRN Reason: pain Last Admin: 03/01/17 18:00 Dose: 2 mg Vancomycin HCl 750 mg/ Sodium (Chloride) 250 mls @ 166.7 mls/hr IVPB MWF [facility] Insulin Aspart (Novolog) 0 unit SC ACHS [facility] PRN Reason: Protocol Last Admin: 03/01/17 17:10 Dose: 5 unit Insulin Aspart (Novolog) 6 unit SC AC [facility] Last Admin: 03/01/17 17:11 Dose: 6 unit Insulin Detemir (Levemir) 12 unit SC Q12 [facility] Last Admin: 03/01/17 09:05 Dose: Not Given Metoclopramide HCl (Reglan) 10 mg PO DAILY [facility] Last Admin: 03/01/17 09:06 Dose: Not Given Nifedipine (Procardia Xl) 60 mg PO BID [facility] Last Admin: 03/01/17 17:58 Dose: 60 mg Ondansetron HCl (Zofran Inj) 4 mg IVP Q4H PRN PRN Reason: Nausea/Vomiting Last Admin: 03/01/17 02:26 Dose: 4 mg Pantoprazole Sodium (Protonix Ec Tab) 40 mg PO DAILY [facility] Last Admin: 03/01/17 09:05 Dose: Not Given Polyethylene Glycol (Miralax) 17 gm PO BID [facility] Last Admin: 03/01/17 18:45 Dose: Not Given Trimethobenzamide HCl (Tigan) 200 mg IM Q6 PRN PRN Reason: Nausea/Vomiting Last Admin: 03/01/17 04:40 Dose: 200 mg - Labs Labs: 02/28/17 13:47 02/28/17 13:47 PT 13.3 SECONDS (9.7-12.2) H 02/17/17 07:53 INR 1.2 02/17/17 07:53 - Constitutional Appears: Well - Head Exam Head Exam: ATRAUMATIC, NORMAL INSPECTION, NORMOCEPHALIC - Eye Exam Eye Exam: EOMI, Normal appearance, PERRL Pupil Exam: NORMAL ACCOMODATION, PERRL - ENT Exam ENT Exam: Mucous Membranes Moist, Normal Exam - Neck Exam Neck Exam: Full ROM, Normal Inspection. absent: Lymphadenopathy - Respiratory Exam Respiratory Exam: Decreased Breath Sounds - Cardiovascular Exam Cardiovascular Exam: REGULAR RHYTHM, +S1, +S2 - GI/Abdominal Exam GI & Abdominal Exam: Soft, Diminished Bowel Sounds - Rectal Exam Rectal Exam: Deferred
--- NOTE | 2017-03-01 20:51 | CP.PCM.CON ---
History of Present Illness - History of Present Illness History of Present Illness: Patient seen and evaluated KAMRAN cancelled today due to test issue test negative For KAMRAN tomorrow Past Patient History - Infectious Disease Hx of Infectious Diseases: None - Tetanus Immunizations Tetanus Immunization: Unknown - Past Medical History & Family History Past Medical History?: Yes - Past Social History Smoking Status: Never Smoked - CARDIAC Hx Congestive Heart Failure: Yes ([place]) Hx Hypercholesterolemia: Yes Hx Hypertension: Yes Hx Peripheral Edema: Yes - NEUROLOGICAL Hx Seizures: Yes - HEENT Hx HEENT Problems: Yes Hx Cataracts: Yes Hx Glaucoma: Yes - RENAL Hx Chronic Kidney Disease: Yes Hx Kidney Stones: Yes - ENDOCRINE/METABOLIC Hx Hyperthyroidism: Yes Hx Hypothyroidism: Yes - HEMATOLOGICAL/ONCOLOGICAL Hx Anemia: Yes - INTEGUMENTARY Hx Dermatological Problems: Yes Other/Comment: DRY ITCHY SKIN ;multiple/generalized dark spots on skin - MUSCULOSKELETAL/RHEUMATOLOGICAL Hx Fractures: Yes (Sep 2012 L foot) - GASTROINTESTINAL Hx Gall Bladder Disease: Yes (gallbladder removed) Hx Gastritis: Yes Hx Pancreatitis: Yes (chronic) - GENITOURINARY/GYNECOLOGICAL Hx Genitourinary Disorders: No - PSYCHIATRIC Hx Anxiety: Yes Hx Substance Use: No - SURGICAL HISTORY Hx Cholecystectomy: Yes Hx Coronary Stent: Yes - ANESTHESIA Hx Anesthesia: Yes Hx Anesthesia Reactions: No Hx Malignant Hyperthermia: No Has any member of the family had a problem w/ anesthesia?: No Meds Allergies/Adverse Reactions: Allergies Allergy/AdvReac Type Severity Reaction Status Date / Time ketorolac tromethamine Allergy RASH Verified 02/16/17 14:57 [From Toradol] latex Allergy RASH Verified 02/16/17 14:57 morphine Allergy RASH Verified 02/16/17 14:57 tramadol Allergy RASH Verified 02/16/17 14:57 - Medications Medications: Current Medications Calcium Acetate (Phoslo) 667 mg PO ACTID [facility] Last Admin: 03/01/17 17:20 Dose: Not Given Clonidine HCl (Catapres-Tts3 0.3 Mg/24 Hr) 1 patch TD Q7D@1000 [facility] Last Admin: 02/23/17 10:49 Dose: 1 patch Diphenhydramine HCl (Benadryl) 25 mg IVP Q3 PRN PRN Reason: Itching / Pruritus Last Admin: 03/01/17 18:00 Dose: 25 mg Diphenhydramine HCl (Benadryl) 25 mg IVP MoWeFrSa PRN PRN Reason: Itching / Pruritus Last Admin: 02/28/17 14:33 Dose: 25 mg Docusate Sodium (Colace) 100 mg PO TID [facility] Last Admin: 03/01/17 17:58 Dose: 100 mg Epoetin James (Procrit) 10,000 unit IV MWF [facility] Last Admin: 02/28/17 13:48 Dose: 10,000 unit Hydromorphone HCl (Dilaudid) 2 mg IVP Q3H PRN PRN Reason: pain Last Admin: 03/01/17 18:00 Dose: 2 mg Vancomycin HCl 750 mg/ Sodium (Chloride) 250 mls @ 166.7 mls/hr IVPB [facility] Insulin Aspart (Novolog) 0 unit SC ACHS [facility] PRN Reason: Protocol Last Admin: 03/01/17 17:10 Dose: 5 unit Insulin Aspart (Novolog) 6 unit SC AC [facility] Last Admin: 03/01/17 17:11 Dose: 6 unit Insulin Detemir (Levemir) 12 unit SC Q12 [facility] Last Admin: 03/01/17 09:05 Dose: Not Given Metoclopramide HCl (Reglan) 10 mg PO DAILY [facility] Last Admin: 03/01/17 09:06 Dose: Not Given Nifedipine (Procardia Xl) 60 mg PO BID [facility] Last Admin: 03/01/17 17:58 Dose: 60 mg Ondansetron HCl (Zofran Inj) 4 mg IVP Q4H PRN PRN Reason: Nausea/Vomiting Last Admin: 03/01/17 02:26 Dose: 4 mg Pantoprazole Sodium (Protonix Ec Tab) 40 mg PO DAILY [facility] Last Admin: 03/01/17 09:05 Dose: Not Given Polyethylene Glycol (Miralax) 17 gm PO BID [facility] Last Admin: 03/01/17 18:45 Dose: Not Given Trimethobenzamide HCl (Tigan) 200 mg IM Q6 PRN PRN Reason: Nausea/Vomiting Last Admin: 03/01/17 04:40 Dose: 200 mg Results - Vital Signs Recent Vital Signs: Last Vital Signs Temp 97.3 F L 03/01/17 15:00 Pulse 106 H 03/01/17 15:00 Resp 20 03/01/17 15:00 BP 143/71 03/01/17 15:00 Pulse Ox 100 03/01/17 15:00 - Labs Result Diagrams: 02/28/17 13:47 02/28/17 13:47 Labs: Laboratory Results - last 24 hr 02/28/17 02/28/17 03/01/17 13:47 21:44 07:20 Sodium 133 Potassium 5.2 Chloride 92 L Carbon Dioxide 18 L Anion Gap 28 H BUN 84 H Creatinine 8.2 H* Est GFR ( Amer) 7 Est GFR (Non-Af Amer) 6 POC Glucose (mg/dL) 330 H 223 H Random Glucose 201 H Calcium 7.2 L Total Bilirubin 0.5 AST 20 ALT 21 Alkaline Phosphatase 170 H Total Protein 8.1 Albumin 3.9 Globulin 4.3 H Albumin/Globulin Ratio 0.9 L Beta HCG, Quant < 2.39 03/01/17 03/01/17 11:21 16:49 Sodium Potassium Chloride Carbon Dioxide Anion Gap BUN Creatinine Est GFR ( Amer) Est GFR (Non-Af Amer) POC Glucose (mg/dL) 130 H 388 H Random Glucose Calcium Total Bilirubin AST ALT Alkaline Phosphatase Total Protein Albumin Globulin Albumin/Globulin Ratio Beta HCG, Quant
[2017-03-02] MEDS: DiphenhydrAMINE 50 mg/ml Inj IVP PRN ×9 (04:00→23:32)
[2017-03-02] MEDS: (Novolog) Insulin Aspart, Recombinant 100 u/ml 10 ml vial SC SCH ×7 (07:29→22:37)
[2017-03-02] MEDS ORDERED: Lidocaine 4% (Laryng-O-Jet) Kit MM ONE ×2 (07:38→08:08)
[2017-03-02] MEDS ORDERED: Midazolam 2 MG/2 ML VIAL ONE ×2 (08:06→08:07)
[2017-03-02] MEDS ORDERED: Propofol 10 mg/ml Inj (20 ML) ONE (08:06)
[2017-03-02] MEDS ORDERED: Etomidate 20 mg/10ml Inj IV ONE (08:07)
[2017-03-02] MEDS ORDERED: Lidocaine 2% Inj (20ml) ONE (08:12)
[2017-03-02] MEDS: Insulin Detemir 100 units/ml Vial (Levemir) SC SCH ×2 (09:15→22:31)
[2017-03-02] MEDS: Pantoprazole 40 mg EC Tab PO SCH (09:18)
[2017-03-02] MEDS: POLYETHYLENE GLYCOL 3350 17 GM/Dose PACKET PO SCH ×2 (09:18→18:36)
[2017-03-02] MEDS: NIFEdipine 60 mg ER Tab PO SCH ×2 (09:18→18:12)
--- NOTE | 2017-03-02 14:36 | CP.PCM.PN ---
Subjective - Date & Time of Evaluation Date of Evaluation: 03/02/17 Time of Evaluation: 07:20 - Subjective Subjective: clinically same Objective - Vital Signs/Intake and Output Vital Signs (last 24 hours): Temp Pulse Resp BP Pulse Ox 97.5 F L 60 16 109/66 98 03/02/17 00:12 03/02/17 00:12 03/02/17 00:12 03/02/17 00:12 03/02/17 00:12 Intake and Output: 03/02/17 03/02/17 06:59 18:59 Intake Total 200 Balance 200 - Medications Medications: Current Medications Calcium Acetate (Phoslo) 667 mg PO ACTID [facility] Last Admin: 03/02/17 11:55 Dose: Not Given Clonidine HCl (Catapres-Tts3 0.3 Mg/24 Hr) 1 patch TD Q7D@1000 [facility] Last Admin: 03/02/17 10:16 Dose: Not Given Diphenhydramine HCl (Benadryl) 25 mg IVP Q3 PRN PRN Reason: Itching / Pruritus Last Admin: 03/02/17 13:00 Dose: 25 mg Diphenhydramine HCl (Benadryl) 25 mg IVP MoWeFrSa PRN PRN Reason: Itching / Pruritus Last Admin: 03/02/17 14:31 Dose: 25 mg Docusate Sodium (Colace) 100 mg PO TID [facility] Last Admin: 03/02/17 14:12 Dose: Not Given Epoetin James (Procrit) 10,000 unit IV F [facility] Last Admin: 02/28/17 13:48 Dose: 10,000 unit Hydromorphone HCl (Dilaudid) 2 mg IVP Q3H PRN PRN Reason: pain Last Admin: 03/02/17 13:00 Dose: 2 mg Vancomycin HCl 750 mg/ Sodium (Chloride) 250 mls @ 166.7 mls/hr IVPB MWF [facility] Last Admin: 03/02/17 09:50 Dose: Not Given Insulin Aspart (Novolog) 0 unit SC ACHS [facility] PRN Reason: Protocol Last Admin: 03/02/17 11:54 Dose: 2 unit Insulin Aspart (Novolog) 6 unit SC AC [facility] Last Admin: 03/02/17 11:55 Dose: Not Given Insulin Detemir (Levemir) 12 unit SC Q12 [facility] Last Admin: 03/02/17 09:15 Dose: Not Given Metoclopramide HCl (Reglan) 10 mg PO DAILY [facility] Last Admin: 03/02/17 09:18 Dose: Not Given Nifedipine (Procardia Xl) 60 mg PO BID [facility] Last Admin: 03/02/17 09:18 Dose: Not Given Ondansetron HCl (Zofran Inj) 4 mg IVP Q4H PRN PRN Reason: Nausea/Vomiting Last Admin: 03/02/17 04:51 Dose: 4 mg Pantoprazole Sodium (Protonix Ec Tab) 40 mg PO DAILY [facility] Last Admin: 03/02/17 09:18 Dose: Not Given Polyethylene Glycol (Miralax) 17 gm PO BID [facility] Last Admin: 03/02/17 09:18 Dose: Not Given Trimethobenzamide HCl (Tigan) 200 mg IM Q6 PRN PRN Reason: Nausea/Vomiting Last Admin: 03/01/17 04:40 Dose: 200 mg - Labs Labs: 02/28/17 13:47 02/28/17 13:47 PT 13.3 SECONDS (9.7-12.2) H 02/17/17 07:53 INR 1.2 02/17/17 07:53 - Constitutional Appears: Well - Head Exam Head Exam: ATRAUMATIC, NORMAL INSPECTION, NORMOCEPHALIC - Eye Exam Eye Exam: EOMI, Normal appearance, PERRL Pupil Exam: NORMAL ACCOMODATION, PERRL - ENT Exam ENT Exam: Mucous Membranes Moist, Normal Exam - Neck Exam Neck Exam: Full ROM, Normal Inspection. absent: Lymphadenopathy - Respiratory Exam Respiratory Exam: Decreased Breath Sounds - Cardiovascular Exam Cardiovascular Exam: REGULAR RHYTHM, +S1, +S2 - GI/Abdominal Exam GI & Abdominal Exam: Soft, Diminished Bowel Sounds - Rectal Exam Rectal Exam: Deferred
[2017-03-02 14:41] LABS: BASO # 0.1 K/uL (0.0-0.2); BASO % 0.7 % (0.0-2.0); EOS # 1.1 K/uL (0.0-0.7); EOS % 11.5 % (0.0-4.0); HEMOGLOBIN 7.6 g/dL (11.0-16.0); LYMPH % 10.6 % (20.0-40.0); MEAN CORPUSCULAR HEMOGLOBIN 31.6 pg (27.0-31.0); MEAN CORPUSCULAR HGB CONC 32.6 g/dL (33.0-37.0); MEAN PLATELET VOLUME 7.5 fL (7.2-11.7); MONO # 0.7 K/uL (0.0-0.8); MONO % 7.5 % (0.0-10.0); NEUT # 6.3 K/uL (1.8-7.0); NEUT % 69.7 % (50.0-75.0); RBC 2.4 Mil/uL (3.80-5.20); RED CELL DISTRIBUTION WIDTH 16.8 % (11.5-14.5); WHITE BLOOD COUNT 9.1 K/uL (4.8-10.8)
[2017-03-02 14:48] LABS: MEAN CELL VOLUME 97.1 fL (81.0-99.0)
[2017-03-02 14:49] LABS: ALBUMIN 3.7 g/dL (3.5-5.0)
[2017-03-02 14:53] LABS: ALB/GLOB RATIO 0.9 (1.0-2.1); CALCIUM 7.6 mg/dl (8.6-10.4)
--- NOTE | 2017-03-02 16:07 | CARD ---
APPROVED REPORT EKG Measurement Heart [id number] <Conclusion> Normal sinus rhythm Left ventricular hypertrophy with repolarization abnormality Prolonged QT Abnormal ECG
[2017-03-02] MEDS: Epoetin Alfa 10,000 unit/ml Dialysis IV SCH (16:38)
--- NOTE | 2017-03-02 17:21 | CP.PCM.PN ---
Subjective - Date & Time of Evaluation Date of Evaluation: 03/02/17 Time of Evaluation: 07:00 - Subjective Subjective: await KAMRAN iv rx renewed cont rx 6-8 weeks Objective - Vital Signs/Intake and Output Vital Signs (last 24 hours): Temp Pulse Resp BP Pulse Ox 97.9 F 103 H 16 120/99 H 98 03/02/17 14:15 03/02/17 14:15 03/02/17 14:15 03/02/17 17:00 03/02/17 14:15 Intake and Output: 03/02/17 03/02/17 06:59 18:59 Intake Total 200 480 Balance 200 480 - Medications Medications: Current Medications Calcium Acetate (Phoslo) 667 mg PO ACTID [facility] Last Admin: 03/02/17 11:55 Dose: Not Given Clonidine HCl (Catapres-Tts3 0.3 Mg/24 Hr) 1 patch TD Q7D@1000 [facility] Last Admin: 03/02/17 10:16 Dose: Not Given Diphenhydramine HCl (Benadryl) 25 mg IVP Q3 PRN PRN Reason: Itching / Pruritus Last Admin: 03/02/17 13:00 Dose: 25 mg Diphenhydramine HCl (Benadryl) 50 mg IVP MoWeFrSa PRN PRN Reason: Itching / Pruritus Last Admin: 03/02/17 16:00 Dose: 50 mg Docusate Sodium (Colace) 100 mg PO TID [facility] Last Admin: 03/02/17 14:12 Dose: Not Given Epoetin James (Procrit) 10,000 unit IV F [facility] Last Admin: 03/02/17 16:38 Dose: 10,000 unit Hydromorphone HCl (Dilaudid) 2 mg IVP Q3H PRN PRN Reason: pain Last Admin: 03/02/17 16:00 Dose: 2 mg Vancomycin HCl 750 mg/ Sodium (Chloride) 250 mls @ 166.7 mls/hr IVPB MWF [facility] Last Admin: 03/02/17 09:50 Dose: Not Given Insulin Aspart (Novolog) 0 unit SC ACHS [facility] PRN Reason: Protocol Last Admin: 03/02/17 11:54 Dose: 2 unit Insulin Aspart (Novolog) 6 unit SC AC [facility] Last Admin: 03/02/17 11:55 Dose: Not Given Insulin Detemir (Levemir) 12 unit SC Q12 [facility] Last Admin: 03/02/17 09:15 Dose: Not Given Metoclopramide HCl (Reglan) 10 mg PO DAILY [facility] Last Admin: 03/02/17 09:18 Dose: Not Given Nifedipine (Procardia Xl) 60 mg PO BID [facility] Last Admin: 03/02/17 09:18 Dose: Not Given Ondansetron HCl (Zofran Inj) 4 mg IVP Q4H PRN PRN Reason: Nausea/Vomiting Last Admin: 03/02/17 04:51 Dose: 4 mg Pantoprazole Sodium (Protonix Ec Tab) 40 mg PO DAILY [facility] Last Admin: 03/02/17 09:18 Dose: Not Given Polyethylene Glycol (Miralax) 17 gm PO BID [facility] Last Admin: 03/02/17 09:18 Dose: Not Given Trimethobenzamide HCl (Tigan) 200 mg IM Q6 PRN PRN Reason: Nausea/Vomiting Last Admin: 03/01/17 04:40 Dose: 200 mg - Labs Labs: 03/02/17 14:33 03/02/17 14:33 PT 13.3 SECONDS (9.7-12.2) H 02/17/17 07:53 INR 1.2 02/17/17 07:53 - Constitutional Appears: Non-toxic, Chronically Ill - Head Exam Head Exam: NORMOCEPHALIC - Eye Exam Eye Exam: Normal appearance, PERRL - ENT Exam ENT Exam: Mucous Membranes Dry - Neck Exam Neck Exam: absent: Lymphadenopathy - Respiratory Exam Respiratory Exam: Chest Wall Tenderness, Decreased Breath Sounds, Rhonchi - Cardiovascular Exam Cardiovascular Exam: REGULAR RHYTHM - GI/Abdominal Exam GI & Abdominal Exam: Distended - Rectal Exam Rectal Exam: Deferred - Exam Exam: NORMAL INSPECTION - Extremities Exam Extremities Exam: absent: Pedal Edema - Back Exam Back Exam: absent: CVA tenderness (L), CVA tenderness (R) - Neurological Exam Neurological Exam: Alert Assessment and Plan (1) Bacteremia Status: Acute (2) Chest pain Status: Acute
--- NOTE | 2017-03-02 20:40 | PCM.RRTMUL ---
<Leyla Lopes - Last Filed: 03/02/17 23:50> RN DISCHARGE Nurses Assessment - Situation RN DISCHARGE Responder Arrival Time:: 15:25 Room Number:: 354A RN DISCHARGE Reason for Call: Chest Pain RN DISCHARGE Called By: RN - IV IV Inserted during RN DISCHARGE?: No New IV Insertion Tolerance:: Good - Respiratory Oxygen Delivery Method:: Nasal Cannula Received Nebulizer Treatments:: No Was the Patient Ventilated with Bag/Mask 100% O2?: No Secretions Suctioned?: No Was the Patient Intubated?: No Was the Patient Placed on a Ventilator?: No - Vital Signs Respiratory Rate:: 16 Temperature:: 97.9 F I.Reason for RN DISCHARGE - A) Acute Change in Patient: (Select all that apply): Staff member or family is worried about patient - A) Initial Vital Signs: Blood Pressure: 158/67 Pulse Rate: 111 Respiratory Rate: 20 Temperature: 98.2 F O2 Sat by Pulse Oximetry: 100 - B) Neurological Status (Select all that apply): Alert, Oriented, Aggressive - C) Respiratory Oxygen Delivery Method: Nasal Cannula @L/min (6L) - Constitutional Appears: Non-toxic, In Acute Distress - Head Head Exam: ATRAUMATIC, NORMAL INSPECTION, NORMOCEPHALIC - Eyes Eye Exam: Normal appearance - Respiratory Exam Respiratory Exam: Clear to Ausculation Bilateral, NORMAL BREATHING PATTERN - Cardiovascular Exam Cardiovascular Exam: Tachycardia, REGULAR RHYTHM - GI/Abdominal Exam GI & Abdominal Exam: Soft, Normal Bowel Sounds. absent: Distended, Firm, Guarding, Rigid - Neurological Exam Neurological Exam: Alert, Awake, Oriented x3 - Extremities Exam Extremities Exam: Full ROM, Normal Inspection Plan - A. End of RN DISCHARGE Vital Signs: Blood Pressure: 156/73 Pulse Rate: 104 Respiratory Rate: 20 Temperature: 97.7 F O2 Sat by Pulse Oximetry: 100 - B. Assessment of Findings&Treatment Plan RN DISCHARGE called at 20:28 for patient who started to have chest pain for 15 minutes with no relief. Patient is very anxious and aggravated. Patient is s/p KAMRAN today. Patient was able to eat after KAMRAN with no vomiting. EKG was done which showed sinus tach at 105 bpm and left ventricular hypertrophy (unchanged from ). Patient given 2mg dialudid for pain. Follow up EKG and ROMIs x2 every 6 hours- 2am and 8am. <David Whitlock P - Last Filed: 03/03/17 06:29> Attending/Attestation - Attestation I have personally seen and examined this patient.: Yes I have fully participated in the care of the patient.: Yes I have reviewed all pertinent clinical information, including history, physical exam and plan: Yes Notes (Text): 03/03/17 06:24 RN DISCHARGE for chest pain, vitals stable, patient was not in distress, requested pain medication. On exam non reproducible, non pleuritic pain as patient was able deep breath without difficulty Rest of exam as above. Serial enzymes ordered, ekg unchanged, suspicion of mediastitnitis very low post KAMRAN, improved immediately, will be continued to be monitored, primary team notified by nursing.
[2017-03-02] MEDS ORDERED: Aluminum Hydroxide/Magnesium Hydroxide Susp (30 mL) PO ONE (22:33)
--- NOTE | 2017-03-02 23:56 | CP.PCM.PN ---
Subjective - Date & Time of Evaluation Date of Evaluation: 03/02/17 Time of Evaluation: 13:00 - Subjective Subjective: SEEN ON RENAL F/U SEEN ON HD C/O ABDO PAIN VSS ALL PREVIOUS EMR REVIEWED Objective - Vital Signs/Intake and Output Vital Signs (last 24 hours): Temp Pulse Resp BP Pulse Ox 97.7 F 104 H 20 156/73 H 100 03/02/17 23:52 03/02/17 23:52 03/02/17 23:52 03/02/17 23:52 03/02/17 20:40 Intake and Output: 03/02/17 03/03/17 18:59 06:59 Intake Total 480 350 Balance 480 350 - Medications Medications: Current Medications Calcium Acetate (Phoslo) 667 mg PO ACTID [facility] Last Admin: 03/02/17 16:45 Dose: Not Given Clonidine HCl (Catapres-Tts3 0.3 Mg/24 Hr) 1 patch TD Q7D@1000 [facility] Last Admin: 03/02/17 10:16 Dose: Not Given Diphenhydramine HCl (Benadryl) 25 mg IVP Q3 PRN PRN Reason: Itching / Pruritus Last Admin: 03/02/17 19:00 Dose: 25 mg Diphenhydramine HCl (Benadryl) 50 mg IVP MoWeFrSa PRN PRN Reason: Itching / Pruritus Last Admin: 03/02/17 16:00 Dose: 50 mg Docusate Sodium (Colace) 100 mg PO TID [facility] Last Admin: 03/02/17 18:12 Dose: 100 mg Epoetin James (Procrit) 10,000 unit IV [facility] Last Admin: 03/02/17 16:38 Dose: 10,000 unit Hydromorphone HCl (Dilaudid) 2 mg IVP Q3H PRN PRN Reason: pain Last Admin: 03/02/17 19:00 Dose: 2 mg Vancomycin HCl 750 mg/ Sodium (Chloride) 250 mls @ 166.7 mls/hr IVPB F [facility] Last Admin: 03/02/17 09:50 Dose: Not Given Insulin Aspart (Novolog) 0 unit SC ACHS [facility] PRN Reason: Protocol Last Admin: 03/02/17 22:37 Dose: 3 unit Insulin Aspart (Novolog) 6 unit SC AC [facility] Last Admin: 03/02/17 16:50 Dose: Not Given Insulin Detemir (Levemir) 12 unit SC Q12 [facility] Last Admin: 03/02/17 22:31 Dose: 12 unit Metoclopramide HCl (Reglan) 10 mg PO DAILY [facility] Last Admin: 03/02/17 09:18 Dose: Not Given Nifedipine (Procardia Xl) 60 mg PO BID [facility] Last Admin: 03/02/17 18:12 Dose: 60 mg Ondansetron HCl (Zofran Inj) 4 mg IVP Q4H PRN PRN Reason: Nausea/Vomiting Last Admin: 03/02/17 04:51 Dose: 4 mg Pantoprazole Sodium (Protonix Ec Tab) 40 mg PO DAILY [facility] Last Admin: 03/02/17 09:18 Dose: Not Given Polyethylene Glycol (Miralax) 17 gm PO BID [facility] Last Admin: 03/02/17 18:36 Dose: Not Given Trimethobenzamide HCl (Tigan) 200 mg IM Q6 PRN PRN Reason: Nausea/Vomiting Last Admin: 03/01/17 04:40 Dose: 200 mg - Labs Labs: 03/02/17 14:33 03/02/17 14:33 PT 13.3 SECONDS (9.7-12.2) H 02/17/17 07:53 INR 1.2 02/17/17 07:53 Assessment and Plan - Assessment and Plan (Free Text) Assessment: ESRD ON HD M W F AND SAT ANEMIA OF CKD .. WILL TRANSFUSE 2 U PRBC MULTIPLE CO MORBIDITIES C/O CURRENT CARE C/O PRESENT MANAGEMENT
[2017-03-03] MEDS: DiphenhydrAMINE 50 mg/ml Inj IVP PRN ×8 (02:29→21:45)
[2017-03-03] MEDS ORDERED: HYDROmorphone 1 mg/ml ISec IVP STA (05:36)
[2017-03-03] MEDS: (Novolog) Insulin Aspart, Recombinant 100 u/ml 10 ml vial SC SCH ×7 (08:34→21:57)
[2017-03-03] MEDS: Pantoprazole 40 mg EC Tab PO SCH (12:00)
[2017-03-03] MEDS: NIFEdipine 60 mg ER Tab PO SCH ×2 (12:00→18:25)
[2017-03-03] MEDS: Insulin Detemir 100 units/ml Vial (Levemir) SC SCH ×2 (12:01→21:56)
[2017-03-03] MEDS: POLYETHYLENE GLYCOL 3350 17 GM/Dose PACKET PO SCH ×2 (12:02→18:28)
--- NOTE | 2017-03-03 13:06 | CP.PCM.PN ---
Subjective - Date & Time of Evaluation Date of Evaluation: 03/03/17 Time of Evaluation: 07:20 - Subjective Subjective: clinically same Objective - Vital Signs/Intake and Output Vital Signs (last 24 hours): Temp Pulse Resp BP Pulse Ox 98.7 F 83 20 160/101 H 100 03/03/17 11:35 03/03/17 11:35 03/03/17 11:35 03/03/17 11:35 03/03/17 11:35 Intake and Output: 03/03/17 03/03/17 06:59 18:59 Intake Total 350 Balance 350 - Medications Medications: Current Medications Calcium Acetate (Phoslo) 667 mg PO ACTID [facility] Last Admin: 03/03/17 12:03 Dose: Not Given Clonidine HCl (Catapres-Tts3 0.3 Mg/24 Hr) 1 patch TD Q7D@1000 [facility] Last Admin: 03/02/17 10:16 Dose: Not Given Diphenhydramine HCl (Benadryl) 25 mg IVP Q3 PRN PRN Reason: Itching / Pruritus Last Admin: 03/03/17 11:58 Dose: 25 mg Diphenhydramine HCl (Benadryl) 50 mg IVP MoWeFrSa PRN PRN Reason: Itching / Pruritus Last Admin: 03/02/17 16:00 Dose: 50 mg Docusate Sodium (Colace) 100 mg PO TID [facility] Last Admin: 03/03/17 12:00 Dose: 100 mg Epoetin James (Procrit) 10,000 unit IV F [facility] Last Admin: 03/02/17 16:38 Dose: 10,000 unit Hydromorphone HCl (Dilaudid) 2 mg IVP Q3H PRN PRN Reason: pain Last Admin: 03/03/17 11:58 Dose: 2 mg Vancomycin HCl 750 mg/ Sodium (Chloride) 250 mls @ 166.7 mls/hr IVPB MWF [facility] Last Admin: 03/02/17 09:50 Dose: Not Given Insulin Aspart (Novolog) 0 unit SC ACHS [facility] PRN Reason: Protocol Last Admin: 03/03/17 08:34 Dose: Not Given Insulin Aspart (Novolog) 6 unit SC AC [facility] Last Admin: 03/03/17 12:14 Dose: 6 unit Insulin Detemir (Levemir) 12 unit SC Q12 [facility] Last Admin: 03/03/17 12:01 Dose: 12 unit Metoclopramide HCl (Reglan) 10 mg PO DAILY [facility] Last Admin: 03/03/17 12:04 Dose: 10 mg Nifedipine (Procardia Xl) 60 mg PO BID [facility] Last Admin: 03/03/17 12:00 Dose: 60 mg Ondansetron HCl (Zofran Inj) 4 mg IVP Q4H PRN PRN Reason: Nausea/Vomiting Last Admin: 03/03/17 08:43 Dose: 4 mg Pantoprazole Sodium (Protonix Ec Tab) 40 mg PO DAILY [facility] Last Admin: 03/03/17 12:00 Dose: 40 mg Polyethylene Glycol (Miralax) 17 gm PO BID [facility] Last Admin: 03/03/17 12:02 Dose: Not Given Trimethobenzamide HCl (Tigan) 200 mg IM Q6 PRN PRN Reason: Nausea/Vomiting Last Admin: 03/01/17 04:40 Dose: 200 mg - Labs Labs: 03/02/17 14:33 03/02/17 14:33 PT 13.3 SECONDS (9.7-12.2) H 02/17/17 07:53 INR 1.2 02/17/17 07:53 - Constitutional Appears: Well - Head Exam Head Exam: ATRAUMATIC, NORMAL INSPECTION, NORMOCEPHALIC - Eye Exam Eye Exam: EOMI, Normal appearance, PERRL Pupil Exam: NORMAL ACCOMODATION, PERRL - ENT Exam ENT Exam: Mucous Membranes Moist, Normal Exam - Neck Exam Neck Exam: Full ROM, Normal Inspection. absent: Lymphadenopathy - Respiratory Exam Respiratory Exam: Decreased Breath Sounds - Cardiovascular Exam Cardiovascular Exam: REGULAR RHYTHM, +S1, +S2 - GI/Abdominal Exam GI & Abdominal Exam: Soft, Diminished Bowel Sounds - Rectal Exam Rectal Exam: Deferred
[2017-03-03 14:40] LABS: BASO # 0.1 K/uL (0.0-0.2); BASO % 1.1 % (0.0-2.0); EOS % 11.4 % (0.0-4.0); HEMOGLOBIN 7.5 g/dL (11.0-16.0); LYMPH # 1.2 K/uL (1.0-4.3); LYMPH % 13.2 % (20.0-40.0); MEAN CELL VOLUME 96.1 fL (81.0-99.0); MEAN CORPUSCULAR HEMOGLOBIN 31.3 pg (27.0-31.0); MEAN CORPUSCULAR HGB CONC 32.6 g/dL (33.0-37.0); MEAN PLATELET VOLUME 7.4 fL (7.2-11.7); MONO # 0.8 K/uL (0.0-0.8); MONO % 8.7 % (0.0-10.0); NEUT # 5.9 K/uL (1.8-7.0); NEUT % 65.6 % (50.0-75.0); RBC 2.4 Mil/uL (3.80-5.20); RED CELL DISTRIBUTION WIDTH 16.8 % (11.5-14.5); WHITE BLOOD COUNT 9.1 K/uL (4.8-10.8)
[2017-03-03 15:05] LABS: CK-MB 2.15 ng/mL (0.0-3.38)
[2017-03-03] MEDS ORDERED: DiphenhydrAMINE 50 mg/ml Inj IVP ONE (17:00)
[2017-03-03] MEDS: Sucralfate 1 gm/10 ml Oral Susp UD PO SCH (17:10)
--- NOTE | 2017-03-03 17:23 | CP.PCM.PN ---
Subjective - Date & Time of Evaluation Date of Evaluation: 03/03/17 Time of Evaluation: 11:00 - Subjective Subjective: Alert, ambulating, denies acute pain. Objective - Vital Signs/Intake and Output Vital Signs (last 24 hours): Temp Pulse Resp BP Pulse Ox 97.6 F 86 16 177/108 H 100 03/03/17 16:48 03/03/17 16:48 03/03/17 16:48 03/03/17 16:48 03/03/17 14:25 Intake and Output: 03/03/17 03/03/17 06:59 18:59 Intake Total 350 710 Balance 350 710 - Medications Medications: Current Medications Calcium Acetate (Phoslo) 667 mg PO ACTID [facility] Last Admin: 03/03/17 12:03 Dose: Not Given Clonidine HCl (Catapres-Tts3 0.3 Mg/24 Hr) 1 patch TD Q7D@1000 [facility] Last Admin: 03/02/17 10:16 Dose: Not Given Diphenhydramine HCl (Benadryl) 25 mg IVP Q3 PRN PRN Reason: Itching / Pruritus Last Admin: 03/03/17 15:43 Dose: 25 mg Diphenhydramine HCl (Benadryl) 50 mg IVP MoWeFrSa PRN PRN Reason: Itching / Pruritus Last Admin: 03/03/17 14:27 Dose: 50 mg Docusate Sodium (Colace) 100 mg PO TID [facility] Last Admin: 03/03/17 13:18 Dose: Not Given Epoetin James (Procrit) 10,000 [place] [facility] [place] Admin: 03/02/17 16:38 Dose: 10,000 unit Hydromorphone HCl (Dilaudid) 2 mg IVP Q3H PRN PRN Reason: pain Last Admin: 03/03/17 15:43 Dose: 2 mg Vancomycin HCl 750 mg/ Sodium (Chloride) 250 mls @ 166.7 mls/hr IVPB F [facility] Last Admin: 03/02/17 09:50 Dose: Not Given Insulin Aspart (Novolog) 0 unit SC ACHS [facility] PRN Reason: Protocol Last Admin: 03/03/17 13:18 Dose: Not Given Insulin Aspart (Novolog) 6 unit SC AC [facility] Last Admin: 03/03/17 12:14 Dose: 6 unit Insulin Detemir (Levemir) 12 unit SC Q12 [facility] Last Admin: 03/03/17 12:01 Dose: 12 unit Metoclopramide HCl (Reglan) 10 mg PO DAILY [facility] Last Admin: 03/03/17 12:04 Dose: 10 mg Nifedipine (Procardia Xl) 60 mg PO BID [facility] Last Admin: 03/03/17 12:00 Dose: 60 mg Ondansetron HCl (Zofran Inj) 4 mg IVP Q4H PRN PRN Reason: Nausea/Vomiting Last Admin: 03/03/17 08:43 Dose: 4 mg Pantoprazole Sodium (Protonix Ec Tab) 40 mg PO DAILY [facility] Last Admin: 03/03/17 12:00 Dose: 40 mg Polyethylene Glycol (Miralax) 17 gm PO BID [facility] Last Admin: 03/03/17 12:02 Dose: Not Given Sucralfate (Carafate Oral Susp) 1 gm PO TIDAC [facility] Trimethobenzamide HCl (Tigan) 200 mg IM Q6 PRN PRN Reason: Nausea/Vomiting Last Admin: 03/01/17 04:40 Dose: 200 mg - Labs Labs: 03/03/17 14:36 03/02/17 14:33 PT 13.3 SECONDS (9.7-12.2) H 02/17/17 07:53 INR 1.2 02/17/17 07:53 Assessment and Plan - Assessment and Plan (Free Text) Assessment: Patient is seen with DR Edilia Sexton , no sob or acute pain. Discharge plan for today after dialysis. Will continue with vanco 750 iv post HD three times a week for [address] Pinto. manager post is arranging all the necessary arrangements.
--- NOTE | 2017-03-03 17:29 | PCM.HF ---
Heart Failure Core Measure - Heart Failure Ejection Fraction: 40 % or Greater (EF 55-60%) BINU Inhibitor Prescribed: No Contraindication/Reason for not providing: ESRD Beta-Allen Prescribed: None Angiotensin II Receptor Allen Prescribed: No Contraindication/Reason for not providing: ESRD AnticoagulationTherapy for Atrial Fibrillation/Atrialflutter: No Contraindication/Reason for not providing: NO AFIB Aldosterone Antagonist Prescribed: No Contraindication/Reason for not providing: EF>40% Hydralazine Nitrate Prescribed: No Contraindication/Reason for not providing: EF >40% Implantable Cardioverter Defibrillator Therapy: No Contraindication/Reason for not providing: EF >40% Cardiac Resynchronization Therapy Prescribed: No Contraindication/Reason for not providing: NOT INDICATED - Follow up Will be discharged to: Home Follow Up Date (must be within 7 days from discharge): 02/13/17 Follow Up Time: 09:00
--- NOTE | 2017-03-03 21:12 | CP.PCM.PN ---
Subjective - Date & Time of Evaluation Date of Evaluation: 03/03/17 Time of Evaluation: 21:11 - Subjective Subjective: on hd today extra tx for 4/wk gastroparesisis a problem vss glenna proc dr del castillo to follow Objective - Vital Signs/Intake and Output Vital Signs (last 24 hours): Temp Pulse Resp BP Pulse Ox 97.6 F 102 H 16 177/108 H 100 03/03/17 17:20 03/03/17 17:20 03/03/17 17:20 03/03/17 16:48 03/03/17 17:20 Intake and Output: 03/03/17 03/04/17 18:59 06:59 Intake Total 710 Balance 710 - Medications Medications: Current Medications Calcium Acetate (Phoslo) 667 mg PO ACTID [facility] Last Admin: 03/03/17 12:03 Dose: Not Given Clonidine HCl (Catapres-Tts3 0.3 Mg/24 Hr) 1 patch TD Q7D@1000 [facility] Last Admin: 03/02/17 10:16 Dose: Not Given Diphenhydramine HCl (Benadryl) 25 mg IVP Q3 PRN PRN Reason: Itching / Pruritus Last Admin: 03/03/17 18:44 Dose: 25 mg Diphenhydramine HCl (Benadryl) 50 mg IVP MoWeFrSa PRN PRN Reason: Itching / Pruritus Last Admin: 03/03/17 14:27 Dose: 50 mg Docusate Sodium (Colace) 100 mg PO TID [facility] Last Admin: 03/03/17 18:29 Dose: 100 mg Epoetin James (Procrit) 10,000 [place] [facility] [place] Admin: 03/02/17 16:38 Dose: 10,000 unit Hydromorphone HCl (Dilaudid) 3 mg IVP Q3H PRN PRN Reason: Pain, severe (8-10) Vancomycin HCl 750 mg/ Sodium (Chloride) 250 mls @ 166.7 mls/hr [place]PB [facility] [place] Admin: 03/02/17 09:50 Dose: Not Given Insulin Aspart (Novolog) 0 unit SC ACHS [facility] PRN Reason: Protocol Last Admin: 03/03/17 17:10 Dose: Not Given Insulin Aspart (Novolog) 6 unit SC AC [facility] Last Admin: 03/03/17 17:10 Dose: 6 unit Insulin Detemir (Levemir) 12 unit SC Q12 [facility] Last Admin: 03/03/17 12:01 Dose: 12 unit Metoclopramide HCl (Reglan) 10 mg PO DAILY [facility] Last Admin: 03/03/17 12:04 Dose: 10 mg Nifedipine (Procardia Xl) 60 mg PO BID [facility] Last Admin: 03/03/17 18:25 Dose: 60 mg Ondansetron HCl (Zofran Inj) 4 mg IVP Q4H PRN PRN Reason: Nausea/Vomiting Last Admin: 03/03/17 08:43 Dose: 4 mg Pantoprazole Sodium (Protonix Ec Tab) 40 mg PO DAILY [facility] Last Admin: 03/03/17 12:00 Dose: 40 mg Polyethylene Glycol (Miralax) 17 gm PO BID [facility] Last Admin: 03/03/17 18:28 Dose: Not Given Sucralfate (Carafate Oral Susp) 1 gm PO TIDAC [facility] Last Admin: 03/03/17 17:10 Dose: 1 gm Trimethobenzamide HCl (Tigan) 200 mg IM Q6 PRN PRN Reason: Nausea/Vomiting Last Admin: 03/01/17 04:40 Dose: 200 mg - Labs Labs: 03/03/17 14:36 03/02/17 14:33 PT 13.3 SECONDS (9.7-12.2) H 02/17/17 07:53 INR 1.2 02/17/17 07:53 - Constitutional Appears: Non-toxic - Head Exam Head Exam: NORMAL INSPECTION - Eye Exam Eye Exam: Normal appearance - ENT Exam ENT Exam: Mucous Membranes Moist - Respiratory Exam Respiratory Exam: NORMAL BREATHING PATTERN - Cardiovascular Exam Cardiovascular Exam: REGULAR RHYTHM - GI/Abdominal Exam GI & Abdominal Exam: Soft, Normal Bowel Sounds - Extremities Exam Extremities Exam: Normal Inspection - Neurological Exam Neurological Exam: Alert, Awake - Psychiatric Exam Psychiatric exam: Normal Affect, Normal Mood - Skin Skin Exam: Dry, Normal Color, Warm
[2017-03-04] MEDS: DiphenhydrAMINE 50 mg/ml Inj IVP PRN ×5 (00:48→13:11)
[2017-03-04 01:27] VITALS: RESP 20
[2017-03-04] MEDS: Sucralfate 1 gm/10 ml Oral Susp UD PO SCH ×2 (08:30→11:49)
[2017-03-04] MEDS: (Novolog) Insulin Aspart, Recombinant 100 u/ml 10 ml vial SC SCH ×4 (08:30→11:50)
[2017-03-04 09:00] VITALS: BP 132/68; PULSE 106; TEMP 98.2; O2SAT 98
[2017-03-04] MEDS: Pantoprazole 40 mg EC Tab PO SCH (09:39)
[2017-03-04] MEDS: NIFEdipine 60 mg ER Tab PO SCH (09:39)
[2017-03-04] MEDS: Insulin Detemir 100 units/ml Vial (Levemir) SC SCH (09:40)
[2017-03-04] MEDS: POLYETHYLENE GLYCOL 3350 17 GM/Dose PACKET PO SCH ×2 (09:40→09:43)
[2017-03-04 11:10] LABS: BASO # 0.1 K/uL (0.0-0.2); BASO % 0.8 % (0.0-2.0); EOS # 0.9 K/uL (0.0-0.7); EOS % 11.5 % (0.0-4.0); HEMOGLOBIN 10.5 g/dL (11.0-16.0); LYMPH # 1.3 K/uL (1.0-4.3); LYMPH % 16.7 % (20.0-40.0); MEAN CELL VOLUME 94.1 fL (81.0-99.0); MEAN CORPUSCULAR HEMOGLOBIN 30.9 pg (27.0-31.0); MEAN CORPUSCULAR HGB CONC 32.9 g/dL (33.0-37.0); MEAN PLATELET VOLUME 7.7 fL (7.2-11.7); MONO # 0.7 K/uL (0.0-0.8); MONO % 9.5 % (0.0-10.0); NEUT # 4.9 K/uL (1.8-7.0); NEUT % 61.5 % (50.0-75.0); RBC 3.41 Mil/uL (3.80-5.20); RED CELL DISTRIBUTION WIDTH 17.4 % (11.5-14.5); WHITE BLOOD COUNT 7.9 K/uL (4.8-10.8)
--- NOTE | 2017-03-04 12:27 | CP.PCM.PN ---
Subjective - Date & Time of Evaluation Date of Evaluation: 03/04/17 Time of Evaluation: 08:20 - Subjective Subjective: clinically same Objective - Vital Signs/Intake and Output Vital Signs (last 24 hours): Temp Pulse Resp BP Pulse Ox 98.2 F 106 H 20 132/68 98 03/04/17 08:59 03/04/17 08:59 03/04/17 08:59 03/04/17 08:59 03/04/17 08:59 Intake and Output: 03/04/17 03/04/17 06:59 18:59 Intake Total 250 240 Balance 250 240 - Medications Medications: Current Medications Calcium Acetate (Phoslo) 667 mg PO ACTID [facility] Last Admin: 03/04/17 11:50 Dose: Not Given Clonidine HCl (Catapres-Tts3 0.3 Mg/24 Hr) 1 patch TD Q7D@1000 [facility] Last Admin: 03/02/17 10:16 Dose: Not Given Diphenhydramine HCl (Benadryl) 25 mg IVP Q3 PRN PRN Reason: Itching / Pruritus Last Admin: 03/04/17 09:58 Dose: 25 mg Diphenhydramine HCl (Benadryl) 50 mg IVP MoWeFrSa PRN PRN Reason: Itching / Pruritus Last Admin: 03/03/17 14:27 Dose: 50 mg Docusate Sodium (Colace) 100 mg PO TID [facility] Last Admin: 03/04/17 09:39 Dose: 100 mg Epoetin James (Procrit) 10,000 unit IV [facility] [place] Last Admin: 03/02/17 16:38 Dose: 10,000 unit Hydromorphone HCl (Dilaudid) 3 mg IVP Q3H PRN PRN Reason: Pain, severe (8-10) Last Admin: 03/04/17 09:57 Dose: 3 mg Vancomycin HCl 750 mg/ Sodium (Chloride) 250 mls @ 166.7 mls/hr IVPB F [facility] Last Admin: 03/02/17 09:50 Dose: Not Given Insulin Aspart (Novolog) 0 unit SC ACHS [facility] PRN Reason: Protocol Last Admin: 03/04/17 11:49 Dose: Not Given Insulin Aspart (Novolog) 6 unit SC AC [facility] Last Admin: 03/04/17 11:50 Dose: Not Given Insulin Detemir (Levemir) 12 unit SC Q12 [facility] Last Admin: 03/04/17 09:40 Dose: 12 unit Metoclopramide HCl (Reglan) 10 mg PO DAILY [facility] Last Admin: 03/04/17 09:39 Dose: 10 mg Nifedipine (Procardia Xl) 60 mg PO BID [facility] Last Admin: 03/04/17 09:39 Dose: 60 mg Ondansetron HCl (Zofran Inj) 4 mg IVP Q4H PRN PRN Reason: Nausea/Vomiting Last Admin: 03/04/17 00:53 Dose: 4 mg Pantoprazole Sodium (Protonix Ec Tab) 40 mg PO DAILY [facility] Last Admin: 03/04/17 09:39 Dose: 40 mg Polyethylene Glycol (Miralax) 17 gm PO BID [facility] Last Admin: 03/04/17 09:43 Dose: Not Given Sucralfate (Carafate Oral Susp) 1 gm PO TIDAC [facility] Last Admin: 03/04/17 11:49 Dose: 1 gm Trimethobenzamide HCl (Tigan) 200 mg IM Q6 PRN PRN Reason: Nausea/Vomiting Last Admin: 03/01/17 04:40 Dose: 200 mg - Labs Labs: 03/04/17 11:04 03/02/17 14:33 PT 13.3 SECONDS (9.7-12.2) H 02/17/17 07:53 INR 1.2 02/17/17 07:53 - Constitutional Appears: Well - Head Exam Head Exam: ATRAUMATIC, NORMAL INSPECTION, NORMOCEPHALIC - Eye Exam Eye Exam: EOMI, Normal appearance, PERRL Pupil Exam: NORMAL ACCOMODATION, PERRL - ENT Exam ENT Exam: Mucous Membranes Moist, Normal Exam - Neck Exam Neck Exam: Full ROM, Normal Inspection. absent: Lymphadenopathy - Respiratory Exam Respiratory Exam: Decreased Breath Sounds - Cardiovascular Exam Cardiovascular Exam: REGULAR RHYTHM, +S1, +S2. absent: Murmur - GI/Abdominal Exam GI & Abdominal Exam: Soft, Diminished Bowel Sounds - Rectal Exam Rectal Exam: Deferred
--- NOTE | 2017-03-06 12:37 | CARD ---
APPROVED REPORT EKG Measurement Heart [id number] <Conclusion> Sinus tachycardia Voltage criteria for left ventricular hypertrophy T wave abnormality, consider lateral ischemia Abnormal ECG
== END 2017-03-04 02:00 | disposition home or self-care (01) | DRG 533 ==
LOC: C.ER 14:56 → C.9E 16:02 → C.6T 18:02 → OBSVTOIN 02-19 09:10 → C.3T 02-19 15:39
PROVIDERS: ADMIT Internal Medicine Nephrology; ATTEND Internal Medicine Nephrology
PROC: 5A1D60Z (ICD-10-PCS; principal; 2017-02-16)
PROC: 05H933Z Insertion of Infusion Device into Right Brachial Vein, Percutaneous Approach (ICD-10-PCS; 2017-02-19)
PROC: B54MZZA Ultrasonography of Right Upper Extremity Veins, Guidance (ICD-10-PCS; 2017-02-19)
PROC: B246ZZ4 Ultrasonography of Right and Left Heart, Transesophageal (ICD-10-PCS; 2017-03-02)
PROC: 30233N1 Transfusion of Nonautologous Red Blood Cells into Peripheral Vein, Percutaneous Approach (ICD-10-PCS; 2017-03-03)
DX: E11.43 Type 2 diabetes mellitus with diabetic autonomic (poly)neuropathy (principal); K31.84 Gastroparesis; R78.81 Bacteremia; I13.2 Hypertensive heart and chronic kidney disease with heart failure and with stage 5 chronic kidney disease, or end stage renal disease; E11.22 Type 2 diabetes mellitus with diabetic chronic kidney disease; N18.6 End stage renal disease; E11.65 Type 2 diabetes mellitus with hyperglycemia; I50.9 Heart failure, unspecified; L02.213 Cutaneous abscess of chest wall; L03.90 Cellulitis, unspecified; D63.1 Anemia in chronic kidney disease; E03.9 Hypothyroidism, unspecified; E78.00 Pure hypercholesterolemia, unspecified; G89.29 Other chronic pain; H40.9 Unspecified glaucoma; K21.9 Gastro-esophageal reflux disease without esophagitis; K59.03 Drug induced constipation; K86.1 Other chronic pancreatitis; M19.90 Unspecified osteoarthritis, unspecified site; T40.2X5A Adverse effect of other opioids, initial encounter; I25.10 Atherosclerotic heart disease of native coronary artery without angina pectoris; B95.62 Methicillin resistant Staphylococcus aureus infection as the cause of diseases classified elsewhere; F41.9 Anxiety disorder, unspecified; Z99.2 Dependence on renal dialysis; Z87.11 Personal history of peptic ulcer disease; Z86.14 Personal history of Methicillin resistant Staphylococcus aureus infection; Z87.442 Personal history of urinary calculi; Z90.49 Acquired absence of other specified parts of digestive tract; Z95.5 Presence of coronary angioplasty implant and graft; Z79.4 Long term (current) use of insulin

== ENCOUNTER 2017-03-10 13:42 | Emergency (ER) | payer MEDICAID ==
[2017-03-10 13:44] VITALS: BMI 27.4
[2017-03-10 14:16] VITALS: RESP 20; O2SAT 100
[2017-03-10 16:35] LABS: RBC URINE 158 /hpf (0-3); URINE BACTERIA MANY (<OCC); URINE BILIRUBIN NEGATIVE (NEGATIVE); URINE BLOOD 1+ (NEGATIVE); URINE COLOR Amber (YELLOW); URINE GLUCOSE (UA) 2+ mg/dL (Normal); URINE KETONE NEGATIVE (NEGATIVE); URINE LEUKOCYTE ESTERASE 3+ Leu/uL (Negative); URINE PROTEIN 2+ mg/dL (NEGATIVE); URINE UROBILINOGEN NORMAL mg/dL (0.2-1.0); WBC URINE 1763 /hpf (0-5)
--- NOTE | 2017-03-10 16:48 | RAD ---
PROCEDURE: Radiographs of the chest and abdomen (obstructive series) HISTORY: Abdominal pain COMPARISON: No prior. TECHNIQUE: AP radiograph of the chest, with upright and supine radiographs of the abdomen. FINDINGS: The right PICC line terminates in the axillary vein. CHEST: Lungs: There is mild pulmonary venous congestion. Cardiovascular: The heart is enlarged. No pulmonary vascular congestion. Pleura: No pleural fluid. No pneumothorax. Other findings: None. ABDOMEN AND PELVIS: Bowel: There is large amount of stool in the colon. No evidence of mechanical obstruction. Free air: None. Bones: Unremarkable. Other findings: There is an IVC filter in place. IMPRESSION: 1. Moderate cardiomegaly and mild pulmonary venous congestion. 2. Constipation. No evidence of bowel obstruction.
--- NOTE | 2017-03-10 17:00 | C.PDOC ---
History Of Present Illness 31 year old female presents to the emergency department with complaints of cramping abdominal pain beginning one hour prior to arrival. Patient has had many prior evaluations for the same complaints. 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 She denies any nausea, vomiting, or diarrhea. Time Seen by Provider: 03/10/17 14:26 Chief Complaint (Nursing): Abdominal Pain History Per: Patient History/Exam Limitations: no limitations Onset/Duration Of Symptoms: Hrs (1 hour prior to arrival ) Current Symptoms Are (Timing): Still Present Location Of Pain/Discomfort: Diffuse Radiation Of Pain To:: None Quality Of Discomfort: Cramping Associated Symptoms: denies: Fever, Chills, Nausea, Vomiting, Diarrhea Recent travel outside of the [place]: No Abnormal Vaginal Bleeding: No Past Medical History Reviewed: Historical Data, Nursing Documentation, Vital Signs Vital Signs: Last Vital Signs Temp 98.7 F 03/10/17 17:20 Pulse 90 03/10/17 17:20 Resp 20 03/10/17 17:20 BP 181/90 H 03/10/17 17:20 Pulse Ox 100 03/10/17 17:20 - Medical History PMH: Anemia, Anxiety, CHF ([place]), Diabetes, Fractures (Sep 2012 L foot), Gastritis, Gastrointestinal Ulcer (gastroparesis), Gall Bladder Disease ( gallbladder removed), Hepatitis, HTN, Hypercholesterolemia, Hyperthyroidism, Hypothyroidism, Kidney Stones, Pancreatitis (chronic), Peripheral Edema, End Stage Renal Disease, Chronic Kidney Disease, Seizures, Chronic Pain Surgical History: Cholecystectomy, Coronary Stent - [facility] Procedures ASSISTANCE WITH RESPIRATORY VENTILATION, 24-96 HRS, CPAP (11/27/16) CAUTERY TO STOP EPISTAX (03/22/14) CENTRAL VENOUS CATHETER PLACEMENT WITH GUIDANCE (11/06/14) DIALYSIS ARTERIOVENOSTOM (01/10/14) DRAINAGE OF RIGHT FOOT SKIN, EXTERNAL APPROACH (07/17/16) DRAINAGE OF RIGHT LOWER ARM SKIN, EXTERNAL APPROACH (05/25/16) ESOPHAGOGASTRODUODENOSCOPY [EGD] W/CLOSED BIOPSY (03/03/14) EXCISION OF STOMACH, ENDO, DIAGN (05/09/16) EXTIRPATE MATTER FROM R LOW ARM SUBCU/FASCIA, PERC (05/25/16) EXTRACTION OF RIGHT FOOT SKIN, EXTERNAL APPROACH (05/25/16) FLEXIBLE SIGMOIDOSCOPY (10/26/14) FLUOROSCOPY OF R JUGULAR VEIN USING L OSM CONTRAST, GUIDANCE (12/13/15) FLUOROSCOPY OF RIGHT SUBCLAVIAN VEIN, GUIDANCE (08/07/16) HEMODIALYSIS (04/05/15) INJECT INSULIN (12/23/12) INJECT/INFUSE ELECTROLYT (12/23/12) INJECT/INFUSE NEC (01/17/15) INSERT INFUSION DEV IN R INT JUGULAR VEIN, PERC (02/23/16) INSERTION OF INFUSION DEV INTO R BASILIC VEIN, PERC APPROACH (04/18/16) INSERTION OF INFUSION DEV INTO R BRACH VEIN, PERC APPROACH (02/19/17) INSERTION OF INFUSION DEV INTO R SUBCLAV VEIN, PERC APPROACH (08/29/16) INSERTION OF INFUSION DEV INTO SUP VENA CAVA, PERC APPROACH (05/25/16) INSERTION OF INFUSION DEVICE INTO R ATRIUM, PERC APPROACH (12/13/15) INSERTION OF VAD INTO CHEST SUBCU/FASCIA, OPEN APPROACH (12/13/15) MEASURE OF CARDIAC SAMPL & PRESSURE, L HEART, PERC APPROACH (10/09/16) OTHER ENDOSCOPY OF SM INTEST (08/25/14) PACKED CELL TRANSFUSION (10/26/14) PERFORMANCE OF URINARY FILTRATION, MULTIPLE (02/19/17) PERFORMANCE OF URINARY FILTRATION, SINGLE (11/27/16) PLAIN RADIOGRAPHY OF LEFT HEART USING OTHER CONTRAST (10/09/16) PLAIN RADIOGRAPHY OF MULT COR ART USING OTH CONTRAST (10/09/16) PLICATION OF VENA CAVA (03/22/14) POST NASAL PAC FOR EPIST (03/22/14) REMOVAL OF VAD FROM TRUNK SUBCU/FASCIA, OPEN APPROACH (02/23/16) MELVIN [facility]NY DIALYSIS SHUNT (03/03/14) THERAPEUTIC ERYTHROCYTAPHERESIS (10/26/14) TRANSFUSE NONAUT RED BLOOD CELLS IN PERIPH VEIN, PERC (02/19/17) ULTRASONOGRAPHY OF RIGHT AND LEFT HEART, TRANSESOPHAGEAL (02/19/17) ULTRASONOGRAPHY OF RIGHT SUBCLAVIAN VEIN, GUIDANCE (08/29/16) ULTRASONOGRAPHY OF RIGHT UPPER EXTREMITY VEINS, GUIDANCE (02/19/17) VACCINATION NEC (10/26/14) VENOUS CATHETERIZATION FOR RENAL DIALYSIS (03/03/14) Family History: States: Unknown Family Hx - Social History Hx Tobacco Use: No Hx Alcohol Use: No Hx Substance Use: No - Immunization History Hx Tetanus Toxoid Vaccination: No Hx Influenza Vaccination: Yes Hx Pneumococcal Vaccination: Yes Review Of Systems Constitutional: Negative for: Fever, Chills Cardiovascular: Negative for: Chest Pain, Palpitations Respiratory: Negative for: Cough, Shortness of Breath Gastrointestinal: Positive for: Abdominal Pain. Negative for: Nausea, Vomiting , Diarrhea Physical Exam - Physical Exam Appears: Non-toxic, No Acute Distress, Other (Patient is calm and comfortable ) Skin: Warm, Dry Head: Atraumatic Eye(s): bilateral: Normal Inspection, PERRL, EOMI Oral Mucosa: Moist Neck: Supple Chest: Symmetrical, No Deformity Cardiovascular: Rhythm Regular Respiratory: Normal Breath Sounds, No Rhonchi, No Wheezing Gastrointestinal/Abdominal: Soft, No Tenderness, No Distention, No Guarding, No Rebound, Other (Abdomen is obese ) Extremity: Other (PICC line in right arm ) Neurological/Psych: Oriented x3 ED Course And Treatment - Laboratory Results Lab Interpretation: Abnormal (UA 1700 WBC's) O2 Sat by Pulse Oximetry: 100 (room air ) - Radiology CXR: Interpreted by Me (+PICC line R arm good place, unchanged from 02/20/17) CXR Interpretation: Yes: No Acute Disease - Other Rad abd x 2 X-Ray: Interpreted by Me (+FOS, no obst/FA) Reevaluation Time: 16:59 Reassessment Condition: Improved (remains asymptomatic.) Medical Decision Making Medical Decision Making: acute on chronic constipation unable to acquire blood labs after > 3 hrs, pt refused further attempts. despite agressive stool softner and laxative regimen, pt continues to suffer from apparent narcotics induced constipation as a significant PO Dilaudid regimen is used @ home for an unclear chronic pain syndrome- if for constipation , then its only exacerbating the problem. UTI though pt basically anuric, and asymptomatic of pyelo Cipro PO empirically. UC sent Disposition Doctor Will See Patient In The: Office Counseled Patient/Family Regarding: Studies Performed, Diagnosis - Disposition Referrals: Kim Sexton MD [Staff Provider] - Disposition: HOME/ ROUTINE Disposition Time: 17:03 Condition: GOOD Additional Instructions: drink a laxative now until signficant bowel movements today's abdominal films show a LARGE amout of stool in your bowels Continue aggressive laxative and stool softner routine Avoid taking Dilaudid for your abdominal pain as this makes your constipation pain worse Take Cipro 500 mg twice a day for your UTI Prescriptions: Ciprofloxacin [Cipro] 1 tab PO BID #13 tab Instructions: Constipation (ED), Urinary Tract Infection in Women (ED) Forms: [facility] Appointment Scheduler Connect (Korean) - Clinical Impression Clinical Impression: Abdominal pain, UTI (lower urinary tract infection) - Scribe Statement The provider has reviewed the documentation as recorded by the Scribe Laquita Oropeza All medical record entries made by the Scribe were at my direction and personally dictated by me. I have reviewed the chart and agree that the record accurately reflects my personal performance of the history, physical exam, medical decision making, and the department course for this patient. I have also personally directed, reviewed, and agree with the discharge instructions and disposition.
[2017-03-10 17:33] VITALS: BP 181/90; PULSE 90; TEMP 98.7
== END 2017-03-10 17:35 | disposition home or self-care (01) ==
LOC: C.ER 13:42
DX: N39.0 Urinary tract infection, site not specified (principal); R10.9 Unspecified abdominal pain

== ENCOUNTER 2017-03-13 12:45 | Observation (INO) | payer MEDICAID ==
[2017-03-13 12:45] VITALS: BMI 27.4
--- NOTE | 2017-03-13 13:45 | C.PDOC ---
History Of Present Illness 31 year old female presents to the ED seeking evaluation of of chronic abdominal pain. Patient was seen Sunday for same complaints by this physician and was diagnosed with chronic narcotic constipation. She admits to missing dialysis yesterday because "she didn't feel like it." Patient denies nausea, vomiting, or diarrhea. Time Seen by Provider: 03/13/17 13:24 Chief Complaint (Nursing): Abdominal Pain History Per: Patient History/Exam Limitations: no limitations Onset/Duration Of Symptoms: Persistent (Chronic abdominal pain ) Current Symptoms Are (Timing): Still Present Location Of Pain/Discomfort: Diffuse Quality Of Discomfort: "Pain" Associated Symptoms: denies: Fever, Chills, Nausea, Vomiting, Diarrhea Recent travel outside of the [place]: No Additional History Per: Prior Records Abnormal Vaginal Bleeding: No Past Medical History Reviewed: Historical Data, Nursing Documentation, Vital Signs Vital Signs: Last Vital Signs Temp 97.3 F L 03/13/17 16:00 Pulse 94 H 03/13/17 17:26 Resp 24 03/13/17 17:26 BP 218/101 H 03/13/17 17:53 Pulse Ox 100 03/13/17 15:29 - Medical History PMH: Anemia, Anxiety, CHF (Florid), Diabetes, Fractures (Sep 2012 L foot), Gastritis, Gastrointestinal Ulcer (gastroparesis), Gall Bladder Disease ( gallbladder removed), Hepatitis, HTN, Hypercholesterolemia, Hyperthyroidism, Hypothyroidism, Kidney Stones, Pancreatitis (chronic), Peripheral Edema, End Stage Renal Disease, Chronic Kidney Disease, Seizures, Chronic Pain Surgical History: Cholecystectomy, Coronary Stent - [facility] Procedures ASSISTANCE WITH RESPIRATORY VENTILATION, 24-96 HRS, CPAP (11/27/16) CAUTERY TO STOP EPISTAX (03/22/14) CENTRAL VENOUS CATHETER PLACEMENT WITH GUIDANCE (11/06/14) DIALYSIS ARTERIOVENOSTOM (01/10/14) DRAINAGE OF RIGHT FOOT SKIN, EXTERNAL APPROACH (07/17/16) DRAINAGE OF RIGHT LOWER ARM SKIN, EXTERNAL APPROACH (05/25/16) ESOPHAGOGASTRODUODENOSCOPY [EGD] W/CLOSED BIOPSY (03/03/14) EXCISION OF STOMACH, ENDO, DIAGN (05/09/16) EXTIRPATE MATTER FROM R LOW ARM SUBCU/FASCIA, PERC (05/25/16) EXTRACTION OF RIGHT FOOT SKIN, EXTERNAL APPROACH (05/25/16) FLEXIBLE SIGMOIDOSCOPY (10/26/14) FLUOROSCOPY OF R JUGULAR VEIN USING L OSM CONTRAST, GUIDANCE (12/13/15) FLUOROSCOPY OF RIGHT SUBCLAVIAN VEIN, GUIDANCE (08/07/16) HEMODIALYSIS (04/05/15) INJECT INSULIN (12/23/12) INJECT/INFUSE ELECTROLYT (12/23/12) INJECT/INFUSE NEC (01/17/15) INSERT INFUSION DEV IN R INT JUGULAR VEIN, PERC (02/23/16) INSERTION OF INFUSION DEV INTO R BASILIC VEIN, PERC APPROACH (04/18/16) INSERTION OF INFUSION DEV INTO R BRACH VEIN, PERC APPROACH (02/19/17) INSERTION OF INFUSION DEV INTO R SUBCLAV VEIN, PERC APPROACH (08/29/16) INSERTION OF INFUSION DEV INTO SUP VENA CAVA, PERC APPROACH (05/25/16) INSERTION OF INFUSION DEVICE INTO R ATRIUM, PERC APPROACH (12/13/15) INSERTION OF VAD INTO CHEST SUBCU/FASCIA, OPEN APPROACH (12/13/15) MEASURE OF CARDIAC SAMPL & PRESSURE, L HEART, PERC APPROACH (10/09/16) OTHER ENDOSCOPY OF SM INTEST (08/25/14) PACKED CELL TRANSFUSION (10/26/14) PERFORMANCE OF URINARY FILTRATION, MULTIPLE (02/19/17) PERFORMANCE OF URINARY FILTRATION, SINGLE (11/27/16) PLAIN RADIOGRAPHY OF LEFT HEART USING OTHER CONTRAST (10/09/16) PLAIN RADIOGRAPHY OF MULT COR ART USING OTH CONTRAST (10/09/16) PLICATION OF VENA CAVA (03/22/14) POST NASAL PAC FOR EPIST (03/22/14) REMOVAL OF VAD FROM TRUNK SUBCU/FASCIA, OPEN APPROACH (02/23/16) [facility]UNT (03/03/14) THERAPEUTIC ERYTHROCYTAPHERESIS (10/26/14) TRANSFUSE NONAUT RED BLOOD CELLS IN PERIPH VEIN, PERC (02/19/17) ULTRASONOGRAPHY OF RIGHT AND LEFT HEART, TRANSESOPHAGEAL (02/19/17) ULTRASONOGRAPHY OF RIGHT SUBCLAVIAN VEIN, GUIDANCE (08/29/16) ULTRASONOGRAPHY OF RIGHT UPPER EXTREMITY VEINS, GUIDANCE (02/19/17) VACCINATION NEC (10/26/14) VENOUS CATHETERIZATION FOR RENAL DIALYSIS (03/03/14) Family History: States: Unknown Family Hx - Social History Hx Tobacco Use: No Hx Alcohol Use: No Hx Substance Use: No - Immunization History Hx Tetanus Toxoid Vaccination: No Hx Influenza Vaccination: Yes Hx Pneumococcal Vaccination: Yes Review Of Systems Constitutional: Negative for: Fever, Chills Cardiovascular: Negative for: Chest Pain Respiratory: Negative for: Shortness of Breath Gastrointestinal: Positive for: Abdominal Pain (chronic abdominal pain ). Negative for: Nausea, Vomiting, Diarrhea Physical Exam - Physical Exam Appears: Non-toxic, No Acute Distress Skin: Warm, Dry, Other (Healing scar at medial left clavicular area that is non- tender) Head: Atraumatic Eye(s): bilateral: Normal Inspection, PERRL, EOMI Oral Mucosa: Moist Neck: Supple Chest: Symmetrical, No Deformity, No Tenderness Cardiovascular: Rhythm Regular Respiratory: Normal Breath Sounds, No Rhonchi, No Wheezing Gastrointestinal/Abdominal: Soft, No Tenderness, No Distention, No Guarding, No Rebound Neurological/Psych: Oriented x3 ED Course And Treatment - Laboratory Results Result Diagrams: 03/13/17 16:15 03/13/17 16:15 O2 Sat by Pulse Oximetry: 100 Progress Note: pt refused labs, ekg, UA, belly films, take Clonidine for elevated BP unless negotiated for narocotic. d/w Dr. Phillips, will get labs during HD. d/w Dr. Yoly Sexton, defers to adm to [facility]. d/w Dr. Dye- Hospitalist- ok to med[facility]; Dilaudid PO prescribed 09/29, 10/27 , and 02/26 from 3 different prescribers. Her pain syndrome is an old L clavicle pain from osteomyelitis, relatively painless now, which is suspicous for ongoing substance abuse. Medical Decision Making Medical Decision Making: chronic narcotic induced constipation from chronic narcotics use for ? L clavicle pain from chronic osteomyelitis. Missed HD yesterday 03/12 (usually Mon/Wed/Fri) for unclear reasons, stat HD by Dr. Phillips now. 1500: d/w Dr. Qiana Espinal MD @ [facility] was floor attending as Nannette was inpatient for 6 weeks until 02/11/17, with brief interruption for sub-acute rehab treated for 6 weeks cumulative as inpatient for MRSA of L clavicular/sternal osteomyelitis Sternal BX 12/19/16 showed MRSA Daptomycin x 6 weeks (though briefly @ [facility], they would not give Daptomycin due to costs so pt returned to [facility] inpatient) and discharged from [facility] 02/11/17 Evaluated and discharged from [facility], pending outpatient follow-up Known to be narcotic demanding and manipulative. Pain issues were more related to abdominal discomforts QUESTIONABLY related to gastroparesis but no studies done @ [facility] NO significant clavicular/sternal pain issues (though pt claims this is the reason she gets Dilaudid PO) Dr. Espinal understands pain meds need to be tapered off for no obvious dilaudid- level pain and discussed this with Nannette who had verbalized understanding. Disposition Doctor Will See Patient In The: Hospital Counseled Patient/Family Regarding: Studies Performed, Diagnosis - Disposition Disposition: HOSPITALIZED Disposition Time: 14:29 Condition: GOOD - Clinical Impression Clinical Impression: Abdominal pain, Drug-seeking behavior, Accelerated essential hypertension, Hemodialysis patient - Scribe Statement The provider has reviewed the documentation as recorded by the Scribe Laquita Oropeza All medical record entries made by the Scribe were at my direction and personally dictated by me. I have reviewed the chart and agree that the record accurately reflects my personal performance of the history, physical exam, medical decision making, and the department course for this patient. I have also personally directed, reviewed, and agree with the discharge instructions and disposition.
[2017-03-13 16:21] LABS: BASO # 0.1 K/uL (0.0-0.2); EOS # 1.1 K/uL (0.0-0.7)
[2017-03-13 16:25] LABS: BASO % 1.3 % (0.0-2.0); EOS % 10.8 % (0.0-4.0); HEMOGLOBIN 10.3 g/dL (11.0-16.0); LYMPH % 9.9 % (20.0-40.0); MEAN CELL VOLUME 94.9 fL (81.0-99.0); MEAN CORPUSCULAR HEMOGLOBIN 31.1 pg (27.0-31.0); MEAN CORPUSCULAR HGB CONC 32.8 g/dL (33.0-37.0); MEAN PLATELET VOLUME 7.6 fL (7.2-11.7); MONO # 0.5 K/uL (0.0-0.8); MONO % 4.7 % (0.0-10.0); NEUT # 7.5 K/uL (1.8-7.0); NEUT % 73.3 % (50.0-75.0); PLATELET COUNT 393 K/uL (130-400); RED CELL DISTRIBUTION WIDTH 15.6 % (11.5-14.5); WHITE BLOOD COUNT 10.2 K/uL (4.8-10.8)
[2017-03-13 16:26] LABS: ALBUMIN 3.9 g/dL (3.5-5.0)
[2017-03-13 16:33] LABS: CALCIUM 5.5 mg/dl (8.6-10.4)
[2017-03-13] MEDS ORDERED: DiphenhydrAMINE 50 mg/ml Inj IVP ONE ×2 (17:00→18:15)
--- NOTE | 2017-03-13 17:22 | CP.PCM.HP ---
Addendum entered and electronically signed by New Capellan DO 03/13/17 20:57: Cardiac cath on 02/10/17 showed patent coronaries First troponin is 0.04 Repeat ZAK x2 and EKG x2 Q6H Original Note: <New Capellan - Last Filed: 03/13/17 20:26> History of Present Illness - History of Present Illness History of Present Illness: PGY-1 H&P for Dr. Quezada This is a 31 year old female with PMHx gastroparesis, diabetes, hypertension, ESRD (HD MWF), [place] in 2004, chronic opiate dependance who came in with complaint of missed hemodialysis and abdominal pain. Patient had severe intractable abdominal pain starting on Sunday03/10/17. It is diffuse and rated as 10/10. Patient is unable to describe the quality of the pain but admits that it is similar to previous bouts of abdominal pain. Abdominal pain is unrelated to meals. There is no change in stool frequency or consistency. Patient denied constipation or diarrhea. Patient has associated nausea, multiple counts of yellowish green vomit, SOB. Patient also complained of chest pain during hemodialysis. Patient states that her baseline Systolic BP is in the 200s. Patient has been on Vancomycin as an outpatient for osteomyelitis. Per note from previous admission, Dr. Pinto specified that the patient should be on Vancomycin for 4-6 weeks. Patient has been going to Dialysis at [facility] on [address] [place] [address] for her transfusions. She was receiving Vancomycin after dialysis sessions M,W,F. Patient has not had Vancomycin since Sunday as she missed her Sunday session of HD. PMHx: Gastroparesis, DM, HTN, ESRD (HD MWF), [place] in 2004, chronic opiate dependence PSHx: exploratory laparatomy in 2005 and 2009 for adhesions. Cholecystecomy in 2009. L arm AVF 2014, I&D right foot abscess Allergies: Toradol, Latex, Morphine, Tramadol Social: Denied illicit drug use, alcohol, tobacco. Family Hx: Mother with DM. Unspecified history of cancer on mom's side of family. PMD: Dr. Anshul Sexton Nephro: Dr. Phillips Present on Admission - Present on Admission Any Indicators Present on Admission: No Review of Systems - Constitutional Constitutional: absent: Chills, Fever - EENT Eyes: absent: Change in Vision Ears: absent: Decreased Hearing Nose/Mouth/Throat: absent: Post Nasal Drip - Cardiovascular Cardiovascular: Chest Pain - Respiratory Respiratory: Dyspnea. absent: Cough, Wheezing - Gastrointestinal Gastrointestinal: Abdominal Pain (diffuse), Nausea, Vomiting (greenish yellow). absent: Constipation, Diarrhea, Hematemesis, Hematochezia - Genitourinary Genitourinary: absent: Dysuria - Musculoskeletal Musculoskeletal: Back Pain - Integumentary Additional comments: scarring from left clavicle osteomyelitis - Neurological Neurological: absent: Dizziness, Weakness - Endocrine Endocrine: absent: Palpitations Past Patient History - Infectious Disease Hx of Infectious Diseases: None - Tetanus Immunizations Tetanus Immunization: Unknown - Past Medical History & Family History Past Medical History?: Yes - Past Social History Smoking Status: Never Smoked - CARDIAC Hx Congestive Heart Failure: Yes (Florid) Hx Hypercholesterolemia: Yes Hx Hypertension: Yes Hx Peripheral Edema: Yes - NEUROLOGICAL Hx Seizures: Yes - HEENT Hx HEENT Problems: Yes Hx Cataracts: Yes Hx Glaucoma: Yes - RENAL Hx Chronic Kidney Disease: Yes Hx Kidney Stones: Yes - ENDOCRINE/METABOLIC Hx Hyperthyroidism: Yes Hx Hypothyroidism: Yes - HEMATOLOGICAL/ONCOLOGICAL Hx Anemia: Yes - INTEGUMENTARY Hx Dermatological Problems: Yes Other/Comment: DRY ITCHY SKIN ;multiple/generalized dark spots on skin - MUSCULOSKELETAL/RHEUMATOLOGICAL Hx Fractures: Yes (Sep 2012 L foot) - GASTROINTESTINAL Hx Gall Bladder Disease: Yes (gallbladder removed) Hx Gastritis: Yes Hx Pancreatitis: Yes (chronic) - PSYCHIATRIC Hx Anxiety: Yes Hx Substance Use: No - SURGICAL HISTORY Hx Cholecystectomy: Yes Hx Coronary Stent: Yes - ANESTHESIA Hx Anesthesia: Yes Hx Anesthesia Reactions: No Hx Malignant Hyperthermia: No Meds Allergies/Adverse Reactions: Allergies Allergy/AdvReac Type Severity Reaction Status Date / Time ketorolac tromethamine Allergy RASH Verified 03/13/17 12:53 [From Toradol] latex Allergy RASH Verified 03/13/17 12:53 morphine Allergy RASH Verified 03/13/17 12:53 tramadol Allergy RASH Verified 03/13/17 12:53 Physical Exam - Constitutional Appears: Agitated (secondary to abdominal pain) - Head Exam Head Exam: ATRAUMATIC, NORMAL INSPECTION, NORMOCEPHALIC - Eye Exam Eye Exam: EOMI, PERRL - ENT Exam ENT Exam: Mucous Membranes Moist - Respiratory Exam Additional comments: Coarse breath sounds bilaterally - Cardiovascular Exam Cardiovascular Exam: Tachycardia, REGULAR RHYTHM, +S1, +S2 Additional comments: Reproducible chest wall tenderness - GI/Abdominal Exam GI & Abdominal Exam: Hypoactive Bowel Sounds, Soft - Extremities Exam Extremities exam: Positive for: pedal pulses present. Negative for: pedal edema , tenderness - Neurological Exam Neurological exam: Alert, CN II-XII Intact, Oriented x3 - Skin Additional comments: Left sided scar due to osteomyelitis of left clavicle Results - Vital Signs Recent Vital Signs: Last Vital Signs Temp 97.3 F L 03/13/17 16:00 Pulse 94 H 03/13/17 16:00 Resp 19 03/13/17 16:05 BP 172/80 H 03/13/17 17:05 Pulse Ox 100 03/13/17 15:29 - Labs Result Diagrams: 03/13/17 16:15 03/13/17 16:15 Labs: Laboratory Results - last 24 hr 03/13/17 03/13/17 03/13/17 16:15 16:15 16:51 WBC 10.2 RBC 3.30 L Hgb 10.3 L Hct 31.3 L MCV 94.9 MCH 31.1 H MCHC 32.8 L RDW 15.6 H Plt Count 393 MPV 7.6 Neut % (Auto) 73.3 Lymph % (Auto) 9.9 L [place] % (Auto) 4.7 Eos % (Auto) 10.8 H Baso % (Auto) 1.3 Neut # 7.5 H Lymph # 1.0 [place] # 0.5 Eos # 1.1 H Baso # 0.1 Sodium 132 Potassium 5.7 H Chloride 88 L Carbon Dioxide 18 L Anion Gap 32 H BUN 82 H Creatinine 9.4 H* D Est GFR ( Amer) 6 Est GFR (Non-Af Amer) 5 POC Glucose (mg/dL) 239 H Random Glucose 338 H Calcium 5.5 L* D Total Bilirubin 0.7 AST 20 ALT 30 Alkaline Phosphatase 175 H Total Protein 7.8 Albumin 3.9 Globulin 3.9 Albumin/Globulin Ratio 1.0 Assessment & Plan - Assessment and Plan (Free Text) Plan: 1. Hypertensive urgency Accelerated essential hypertension Consult: Dr. Phillips (nephrology) Resident discussed risks and benefits and consented for dialysis. Patient seen getting dialysis at bedside. Clonidine 0.3 mg PO TID Procardia XL 60 mg PO Q12H 2. History of osteomyelitis of left clavicle Clarification: patient finished antibiotic therapy Finished Daptomycin at [facility] on 02/11/17 Recently admitted at [facility] and discharged with Vancomycin 750 mg M,, after HD Patient missed dose on Sunday. Last received on Sunday. So 1 time dose given today in the evening after HD. 3. History of diabetic gastroparesis Hemoglobin A1C, Lipid panel Accuchecks QAC&HS Novolog ISS Levemir 12 units SQ Q12H 4. Opioid Dependence; Drug seeking behavior Dilaudid 2 mg IV Q3 Benadryl 25 mg IV Q3 Zofran 4 mg IV Q6 Reglan 10 mg IV Q6 5. Prophylactic Measure Heparin 5000 units SQ Q12H Pepcid 20 mg IV daily 6. Chest pain/hypertensive cardiomyopathy EKG ZAK x1 KAMRAN 03/02/17: No evidence of endocarditis. LVEF WNL. Cardiac Catheterization on prior admission revealed patent coronaries Case Discussed with Dr. Pilar Capellan PGY1 - Date & Time Date: 03/13/17 Time: 16:00 Decision To Admit - Pt Status Changed To: Hospital Disposition Of: Observation - . Bed Request Type: Telemetry Admitting Physician: Purvi Quezada <Purvi Quezada V - Last Filed: 03/13/17 23:09> Results - Vital Signs Recent Vital Signs: Last Vital Signs Temp 97.3 F L 03/13/17 16:00 Pulse 91 H 03/13/17 19:05 Resp 22 03/13/17 19:05 BP 186/117 H 03/13/17 19:05 Pulse Ox 100 03/13/17 18:22 - Labs Result Diagrams: 03/13/17 22:10 03/13/17 22:10 Labs: Laboratory Results - last 24 hr 03/13/17 03/13/17 03/13/17 16:15 16:15 16:51 WBC 10.2 RBC 3.30 L Hgb 10.3 L Hct 31.3 L MCV 94.9 MCH 31.1 H MCHC 32.8 L RDW 15.6 H Plt Count 393 MPV 7.6 Neut % (Auto) 73.3 Lymph % (Auto) 9.9 L [place] % (Auto) 4.7 Eos % (Auto) 10.8 H Baso % (Auto) 1.3 Neut # 7.5 H Lymph # 1.0 [place] # 0.5 Eos # 1.1 H Baso # 0.1 Neutrophils % (Manual) 78 H Band Neutrophils % 1 Lymphocytes % (Manual) 5 L Monocytes % (Manual) 4 Eosinophils % (Manual) 10 H Basophils % (Manual) 2 Platelet Estimate Normal Large Platelets Present Hypochromasia (manual) Slight Microcytosis (manual) Slight Tear Drop Cells Slight Ovalocytes Slight Sodium 132 Potassium 5.7 H Chloride 88 L Carbon Dioxide 18 L Anion Gap 32 H BUN 82 H Creatinine 9.4 H* D Est GFR ( Amer) 6 Est GFR (Non-Af Amer) 5 POC Glucose (mg/dL) 239 H Random Glucose 338 H Hemoglobin A1c Calcium 5.5 L* D Total Bilirubin 0.7 AST 20 ALT 30 Alkaline Phosphatase 175 H Total Creatine Kinase CK-MB (Mass) Troponin I, Quant Total Protein 7.8 Albumin 3.9 Globulin 3.9 Albumin/Globulin Ratio 1.0 Triglycerides Cholesterol LDL Cholesterol Direct HDL Cholesterol 03/13/17 03/13/17 03/13/17 18:49 18:49 19:09 WBC RBC Hgb Hct MCV MCH MCHC RDW Plt Count MPV Neut % (Auto) Lymph % (Auto) [place] % (Auto) Eos % (Auto) Baso % (Auto) Neut # Lymph # [place] # Eos # Baso # Neutrophils % (Manual) Band Neutrophils % Lymphocytes % (Manual) Monocytes % (Manual) Eosinophils % (Manual) Basophils % (Manual) Platelet Estimate Large Platelets Hypochromasia (manual) Microcytosis (manual) Tear Drop Cells Ovalocytes Sodium Potassium Chloride Carbon Dioxide Anion Gap BUN Creatinine Est GFR ( Amer) Est GFR (Non-Af Amer) POC Glucose (mg/dL) Random Glucose Hemoglobin A1c 6.3 Calcium Total Bilirubin AST ALT Alkaline Phosphatase Total Creatine Kinase 145 H CK-MB (Mass) 2.97 Troponin I, Quant 0.0410 Total Protein Albumin Globulin Albumin/Globulin Ratio Triglycerides 87 D Cholesterol 181 LDL Cholesterol Direct 82 HDL Cholesterol 57 03/13/17 03/13/17 22:10 22:10 WBC 10.8 RBC 3.37 L Hgb 10.3 L Hct 31.7 L MCV 93.9 MCH 30.6 MCHC 32.6 L RDW 16.1 H Plt Count 408 H MPV 7.4 Neut % (Auto) 84.2 H Lymph % (Auto) 5.5 L [place] % (Auto) 4.5 Eos % (Auto) 5.1 H Baso % (Auto) 0.7 Neut # 9.1 H Lymph # 0.6 L [place] # 0.5 Eos # 0.6 Baso # 0.1 Neutrophils % (Manual) Band Neutrophils % Lymphocytes % (Manual) Monocytes % (Manual) Eosinophils % (Manual) Basophils % (Manual) Platelet Estimate Large Platelets Hypochromasia (manual) Microcytosis (manual) Tear Drop Cells Ovalocytes Sodium 139 Potassium 4.1 Chloride 90 L Carbon Dioxide 30 Anion Gap 24 H BUN 38 H Creatinine 5.3 H Est GFR ( Amer) 11 Est GFR (Non-Af Amer) 10 POC Glucose (mg/dL) Random Glucose 282 H Hemoglobin A1c Calcium 7.1 L Total Bilirubin 0.8 AST 26 ALT 33 Alkaline Phosphatase 190 H Total Creatine Kinase CK-MB (Mass) Troponin I, Quant Total Protein 8.3 Albumin 4.1 Globulin 4.2 H Albumin/Globulin Ratio 1.0 Triglycerides Cholesterol LDL Cholesterol Direct HDL Cholesterol Attending/Attestation - Attestation I have personally seen and examined this patient.: Yes I have fully participated in the care of the patient.: Yes I have reviewed all pertinent clinical information: Yes Notes (Text): Patient seen, examined, and case discussed with day-time resident. Patient seen and examine in dialysis. Patient is well-known to the hospitalist service from prior admissions. Patient has a known hx of diabetic gastropersis and narcotic dependence/drug-seeking behavior who has also been previously treated for osteomyelitis per the ED note and currently on IV Vancomycin per ID in the most recent hospitalization noted in the EMR. Patient has a PICC line that was placed 2 years ago and has scarring from infected port-a-cath noted healed scars over the chest. Patient is very agitated, screaming, and vent about how difficult it is to navigate thru the health system regarding her multiple medical problems including f/u pain management in [place], frustrations w insurance, and navigating between being in the hospital number of times for multiple co- morbidities. Patient reports she is looking into gastric pacemaker to help with her DM gastropersis. She reports she started throwing up this morning no blood and could not tolerate her anti-hypertensives. Patient asking for Dilaudid 2mg or 3mg IV when I prompted her to tell me her entire medication list. I advised her if she continues to ask beyond a pain threshold 0-3/10 I will stop giving these meds given we do not to drop her blood pressure or put her in a coma because of need for Dilaudid. Patient's SBP: 250 while being angry but after I speak with her SBP: 199. Patient reports she did not take her clonidine which would contribute to rebound htn for her. Read ED note, including [place] access and prior notes from last admission. Dr Edilia Sexton deferred to hospitalist service for admission. Advised patient I will not bargain pain medication with medically necessary items given she is at risk stroke, mi, and multiple other problems. Patient initially said "she does not care if she dies" but calmed after a bit of talking. Patient appears dependent on Dilaudud 2mg IV Q3; Benadryl IV Q 3h, Clonidine patch but cant remember her other medications. Patient advised once she completes dialysis and receive dose of Vancomycin, she will be discharged tomorrow; and she is aware that is the plan for her. 1. Hypertensive urgency; Hx of Accelerated essential hypertension Consult: Dr. Phillips (nephrology) Resident discussed risks and benefits and consented for dialysis--Permitted and witnessed by the nurse Patient seen getting dialysis at bedside presently Clonidine 0.3 mg PO TID Procardia XL 60 mg PO Q12H 2. History of osteomyelitis of left clavicle Clarification: patient finished antibiotic therapy Finished Daptomycin at [facility] on 02/11/17 Recently admitted at [facility] and discharged with Vancomycin 750 mg M,W,F after HD -->confirmed with ID Patient missed dose on Sunday. Last received on Sunday. So 1 time dose given today in the evening after HD per discussion with ID 3. History of diabetic gastroparesis Hemoglobin A1C, Lipid panel in AM Accuchecks QAC&HS Novolog ISS Levemir 12 units SQ Q12H 4. Opioid Dependence; Drug seeking behavior (per EMR) Dilaudid 2 mg IV Q3 Benadryl 25 mg IV Q3 Zofran 4 mg IV Q6 Reglan 10 mg IV Q6 patient will not get additional dosing; needs to follow-up with pain management 5. Chest pain/hypertensive cardiomyopathy EKGX3, ZAK x3 r/o [place] KAMRAN 03/02/17: No evidence of endocarditis. LVEF WNL. Cardiac Catheterization on prior admission revealed patent coronaries;; hypertensive cardiomyopahy EF: 45 6. Prophylactic Measure Heparin 5000 units SQ Q12H Pepcid 20 mg IV daily
[2017-03-13 17:43] LABS: BANDS 1 % (0-2); BASOPHIL 2 % (0-2); EOSINOPHIL 10 % (0-4); LYMPHOCYTE 5 % (20-40); MONOCYTE 4 % (0-10); NEUTROPHIL 78 % (50-75); TOTAL CELLS COUNTED 100
[2017-03-13 17:46] LABS: HYPOCHROMIC SLIGHT; MICROCYTOSIS SLIGHT; OVALOCYTES SLIGHT; PLATELET ESTIMATE NORMAL (NORMAL); TEARDROP CELLS SLIGHT
[2017-03-13 17:47] LABS: LARGE PLATELETS PRESENT
[2017-03-13] MEDS ORDERED: DiphenhydrAMINE 50 mg/ml Inj IVP SCH (18:15)
[2017-03-13 19:02] LABS: HDL CHOLESTEROL 57 mg/dL (30-70)
[2017-03-13 19:12] LABS: LDL CHOLESTEROL 82 mg/dL (0-129)
[2017-03-13] MEDS ORDERED: Vancomycin 750mg/D5W 150 ml 150 ML IV ONE ×2 (19:15→20:00)
[2017-03-13 19:31] LABS: CK-MB 2.97 ng/mL (0.0-3.38)
[2017-03-13] MEDS: DiphenhydrAMINE 50 mg/ml Inj IVP PRN ×2 (19:45→23:44)
[2017-03-13] MEDS: NIFEdipine 60 mg ER Tab PO SCH (19:46)
[2017-03-13] MEDS: Insulin Detemir 100 units/ml Vial (Levemir) SC SCH (21:53)
[2017-03-13] MEDS: (Novolin R) Insulin Human Regular 100 units/ml vial SC SCH (21:53)
[2017-03-13 22:15] LABS: BASO # 0.1 K/uL (0.0-0.2); BASO % 0.7 % (0.0-2.0); EOS # 0.6 K/uL (0.0-0.7); EOS % 5.1 % (0.0-4.0); HEMOGLOBIN 10.3 g/dL (11.0-16.0); LYMPH # 0.6 K/uL (1.0-4.3); LYMPH % 5.5 % (20.0-40.0); MEAN CELL VOLUME 93.9 fL (81.0-99.0); MEAN CORPUSCULAR HEMOGLOBIN 30.6 pg (27.0-31.0); MEAN CORPUSCULAR HGB CONC 32.6 g/dL (33.0-37.0); MEAN PLATELET VOLUME 7.4 fL (7.2-11.7); MONO # 0.5 K/uL (0.0-0.8); MONO % 4.5 % (0.0-10.0); NEUT # 9.1 K/uL (1.8-7.0); NEUT % 84.2 % (50.0-75.0); PLATELET COUNT 408 K/uL (130-400); RBC 3.37 Mil/uL (3.80-5.20); RED CELL DISTRIBUTION WIDTH 16.1 % (11.5-14.5); WHITE BLOOD COUNT 10.8 K/uL (4.8-10.8)
[2017-03-13 22:21] LABS: ALBUMIN 4.1 g/dL (3.5-5.0)
[2017-03-13 22:25] LABS: CALCIUM 7.1 mg/dl (8.6-10.4)
[2017-03-13 23:14] LABS: BANDS 4 % (0-2); BASOPHIL 1 % (0-2); EOSINOPHIL 6 % (0-4); HYPOCHROMIC SLIGHT; LYMPHOCYTE 4 % (20-40); MICROCYTOSIS SLIGHT; MONOCYTE 2 % (0-10); NEUTROPHIL 83 % (50-75); PLATELET ESTIMATE NORMAL (NORMAL); TOTAL CELLS COUNTED 100
[2017-03-13 23:15] LABS: LARGE PLATELETS PRESENT
[2017-03-14 02:17] LABS: CK-MB 1.96 ng/mL (0.0-3.38)
[2017-03-14] MEDS: DiphenhydrAMINE 50 mg/ml Inj IVP PRN ×5 (03:34→18:08)
[2017-03-14] MEDS: NIFEdipine 60 mg ER Tab PO SCH ×2 (05:45→17:29)
[2017-03-14 08:10] LABS: BASO # 0.1 K/uL (0.0-0.2); BASO % 1.4 % (0.0-2.0); EOS # 0.7 K/uL (0.0-0.7); EOS % 10.1 % (0.0-4.0); HEMOGLOBIN 9.3 g/dL (11.0-16.0); LYMPH # 1.1 K/uL (1.0-4.3); LYMPH % 14.3 % (20.0-40.0); MEAN CELL VOLUME 95.3 fL (81.0-99.0); MEAN CORPUSCULAR HEMOGLOBIN 31.4 pg (27.0-31.0); MEAN CORPUSCULAR HGB CONC 32.9 g/dL (33.0-37.0); MEAN PLATELET VOLUME 7.5 fL (7.2-11.7); MONO # 0.5 K/uL (0.0-0.8); NEUT # 4.9 K/uL (1.8-7.0); NEUT % 67.2 % (50.0-75.0); RBC 2.97 Mil/uL (3.80-5.20); WHITE BLOOD COUNT 7.4 K/uL (4.8-10.8)
[2017-03-14 08:33] LABS: ALBUMIN 3.4 g/dL (3.5-5.0)
[2017-03-14] MEDS: (Novolin R) Insulin Human Regular 100 units/ml vial SC SCH ×3 (08:35→17:29)
[2017-03-14 08:36] LABS: CALCIUM 6.1 mg/dl (8.6-10.4)
[2017-03-14 08:38] LABS: ALB/GLOB RATIO 0.9 (1.0-2.1)
[2017-03-14 08:42] LABS: CK-MB 1.74 ng/mL (0.0-3.38)
[2017-03-14] MEDS ORDERED: DiphenhydrAMINE 50 mg/ml Inj IVP STA ×2 (11:38→12:20)
[2017-03-14] MEDS: Insulin Detemir 100 units/ml Vial (Levemir) SC SCH (14:37)
--- NOTE | 2017-03-14 15:31 | CP.PCM.DIS ---
Provider - Provider Date of Admission: 03/13/17 14:11 Attending physician: Anderson Dye MD Time Spent in preparation of Discharge (in minutes): 35 Diagnosis - Discharge Diagnosis (1) Hypertensive urgency Status: Acute (2) History of osteomyelitis Status: Chronic (3) History of diabetic gastroparesis Status: Acute (4) Opioid dependence Status: Acute (5) Chest pain Status: Acute (6) Prophylactic measure Status: Acute Hospital Course - Lab Results Lab Results: Most Recent Lab Values WBC 7.4 K/uL (4.8-10.8) 03/14/17 08:03 RBC 2.97 Mil/uL (3.80-5.20) L 03/14/17 08:03 Hgb 9.3 g/dL (11.0-16.0) L 03/14/17 08:03 Hct 28.3 % (34.0-47.0) L 03/14/17 08:03 MCV 95.3 fL (81.0-99.0) 03/14/17 08:03 MCH 31.4 pg (27.0-31.0) H 03/14/17 08:03 MCHC 32.9 g/dL (33.0-37.0) L 03/14/17 08:03 RDW 16.0 % (11.5-14.5) H 03/14/17 08:03 Plt Count 339 K/uL (130-400) 03/14/17 08:03 MPV 7.5 fL (7.2-11.7) 03/14/17 08:03 Neut % (Auto) 67.2 % (50.0-75.0) 03/14/17 08:03 Lymph % (Auto) 14.3 % (20.0-40.0) L 03/14/17 08:03 [place] % (Auto) 7.0 % (0.0-10.0) 03/14/17 08:03 Eos % (Auto) 10.1 % (0.0-4.0) H 03/14/17 08:03 Baso % (Auto) 1.4 % (0.0-2.0) 03/14/17 08:03 Neut # 4.9 K/uL (1.8-7.0) 03/14/17 08:03 Lymph # 1.1 K/uL (1.0-4.3) 03/14/17 08:03 [place] # 0.5 K/uL (0.0-0.8) 03/14/17 08:03 Eos # 0.7 K/uL (0.0-0.7) 03/14/17 08:03 Baso # 0.1 K/uL (0.0-0.2) 03/14/17 08:03 Neutrophils % (Manual) 83 % (50-75) H 03/13/17 22:10 Band Neutrophils % 4 % (0-2) H 03/13/17 22:10 Lymphocytes % (Manual) 4 % (20-40) L 03/13/17 22:10 Monocytes % (Manual) 2 % (0-10) 03/13/17 22:10 Eosinophils % (Manual) 6 % (0-4) H 03/13/17 22:10 Basophils % (Manual) 1 % (0-2) 03/13/17 22:10 Platelet Estimate Normal (NORMAL) 03/13/17 22:10 Large Platelets Present 03/13/17 22:10 Hypochromasia (manual) Slight 03/13/17 22:10 Microcytosis (manual) Slight 03/13/17 22:10 Tear Drop Cells Slight 03/13/17 16:15 Ovalocytes Slight 03/13/17 16:15 Sodium 139 mmol/L (132-148) 03/14/17 08:03 Potassium 4.4 mmol/L (3.6-5.2) 03/14/17 08:03 Chloride 94 mmol/L (98-107) L 03/14/17 08:03 Carbon Dioxide 27 mmol/L (22-30) 03/14/17 08:03 Anion Gap 22 (10-20) H 03/14/17 08:03 BUN 47 mg/dL (7-17) H 03/14/17 08:03 Creatinine 6.3 MG/DL (0.7-1.2) H 03/14/17 08:03 Est GFR ( Amer) 9 03/14/17 08:03 Est GFR (Non-Af Amer) 8 03/14/17 08:03 POC Glucose (mg/dL) 63 mg/dL (65-110) L 03/14/17 14:18 Random Glucose 175 mg/dL (65-105) H 03/14/17 08:03 Hemoglobin A1c 6.3 % (4.2-6.5) 03/13/17 18:49 Calcium 6.1 mg/dl (8.6-10.4) L 03/14/17 08:03 Total Bilirubin 0.6 mg/dL (0.2-1.3) 03/14/17 08:03 AST 26 U/L (14-36) 03/14/17 08:03 ALT 29 U/L (9-52) 03/14/17 08:03 Alkaline Phosphatase 143 U/L (38-126) H D 03/14/17 08:03 Total Creatine Kinase 100 U/L (30-135) 03/14/17 08:03 CK-MB (Mass) 1.74 ng/mL (0.0-3.38) 03/14/17 08:03 Troponin I, Quant 0.0700 ng/mL (0.00-0.120) 03/14/17 08:03 Total Protein 7.0 g/dL (6.3-8.3) 03/14/17 08:03 Albumin 3.4 g/dL (3.5-5.0) L 03/14/17 08:03 Globulin 3.6 gm/dL (2.2-3.9) 03/14/17 08:03 Albumin/Globulin Ratio 0.9 (1.0-2.1) L 03/14/17 08:03 Triglycerides 87 mg/dL (0-149) D 03/13/17 18:49 Cholesterol 181 mg/dL (0-199) 03/13/17 18:49 LDL Cholesterol Direct 82 mg/dL (0-129) 03/13/17 18:49 HDL Cholesterol 57 mg/dL (30-70) 03/13/17 18:49 - Hospital Course Hospital Course: On admission: "This is a 31 year old female with PMHx gastroparesis, diabetes, hypertension, ESRD (HD MWF), SD in 2004, chronic opiate dependance who came in with complaint of missed hemodialysis and abdominal pain. Patient had severe intractable abdominal pain starting on Sunday03/10/17. It is diffuse and rated as 10/10. Patient is unable to describe the quality of the pain but admits that it is similar to previous bouts of abdominal pain. Abdominal pain is unrelated to meals. There is no change in stool frequency or consistency. Patient denied constipation or diarrhea. Patient has associated nausea, multiple counts of yellowish green vomit, SOB. Patient also complained of chest pain during hemodialysis. Patient states that her baseline Systolic BP is in the 200s. Patient has been on Vancomycin as an outpatient for osteomyelitis. Per note from previous admission, Dr. Pinto specified that the patient should be on Vancomycin for 4-6 weeks. Patient has been going to Dialysis at [facility] on [address] in [place] for her transfusions. She was receiving Vancomycin after dialysis sessions ,,F. Patient has not had Vancomycin since Sunday as she missed her Sunday session of HD." Hospital course: Patient admitted due to missed hemodialysis session along with associated missed dosing of Vancomycin IV post dialysis. Patient normally receives Vancomycin IV at [facility] in [place] for history of osteomyelitis of clavicle. Patient consented by resident and received stat hemodialysis upon admission. At hemodialysis, patient was agitated with SBP in the 200s but calmed down after conversing with medical team. At that time patient complained of chest pain. Cardiac enzymes and EKGs performed which were WNL. Coronaries noted patent from cardiac cath on 02/10/17. Patient received 750 mg IV Vancomycin after dialysis session on 03/13/17. Patient initially had hyperkalemia and hypocalcemia which were improved post dialysis and with addition of PhosLo. Patient received hemodialysis today 03/14/17. Per resident discussion with Dr. Pinto and Dr. Phillips, patient was given one more dose of Vancomycin 750 mg IV after dialysis. They advised removal of PICC line from prior admission as Vancomycin can be given without it at the dialysis center. After Vancomycin was finished, 20 cm PICC line removed without complication which was consistent with PICC nurse's note from prior admission. Throughout this admission, patient has been dependent on Dilaudid 2mg IV Q3. Patient counseled on opioid addiction and dependence. Patient advised to follow up with a primary care physician within 1 week of discharge. Instructions and information for the [facility] were provided. Patient is to continue going to [facility] for her dialysis and Vancomycin treatment. This is a brief summary of events. For full details refer to the medical records. - Date & Time of H&P Date of H&P: 03/14/17 Time of H&P: 16:30 Discharge Exam - Head Exam Head Exam: ATRAUMATIC, NORMAL INSPECTION, NORMOCEPHALIC - Eye Exam Eye Exam: EOMI, PERRL - ENT Exam ENT Exam: Mucous Membranes Moist - Respiratory Exam Respiratory Exam: Clear to PA & Lateral - Cardiovascular Exam Cardiovascular Exam: REGULAR RHYTHM, +S1, +S2 - GI/Abdominal Exam GI & Abdominal Exam: Normal Bowel Sounds, Soft - Neurological Exam Neurological exam: Alert, CN II-XII Intact, Oriented x3 - Skin Skin Exam: Dry, Intact Discharge Plan - Discharge Medications Prescriptions: Metoclopramide [Reglan] 10 mg PO ONCE #30 dose - Follow Up Plan Condition: STABLE Disposition: HOME/ ROUTINE Patient education suggested?: No Instructions: Metoclopramide (By mouth), Heart Failure (DC), Hemodialysis (DC) , Dialysis Diet (DC), Meal Planning with Diabetes Exchanges (DC) Additional Instructions: Follow up with primary care physician within one week. Continue going to get dialysis and vancomycin doses from [facility] [place] in [place] with next appointment being Sunday03/16/17. Patient advised to continue home medications and will be given a prescription for Reglan 10 mg PO once daily. Patient advised to return to the emergency room if she gets chest pain or other alarming symptoms. Referrals: Anderson Dye MD [Staff Provider] -
[2017-03-14 16:14] VITALS: RESP 20; TEMP 97.4; O2SAT 95
[2017-03-14] MEDS ORDERED: DiphenhydrAMINE 50 mg/ml Inj IVP ONE ×2 (16:15→20:04)
[2017-03-14 18:28] VITALS: BP 158/80; PULSE 68
--- NOTE | 2017-03-14 22:45 | CP.PCM.CON ---
History of Present Illness - History of Present Illness History of Present Illness: REASONS FOR CONSULT : ESRD ON HD M W F ANEMIA OF CKD PT WAS SEEN ON HER HD .. SHE ALSO RECIEVED HD YESTERDAY ALL EMR REVIEWED .. LABS REVIEWED .. PT WAS SEEN AND EXAMINED WAS ADMITTED WITH ABDO PAIN .. HAS MMP Past Patient History - Infectious Disease Hx of Infectious Diseases: None - Tetanus Immunizations Tetanus Immunization: Unknown - Past Medical History & Family History Past Medical History?: Yes - Past Social History Smoking Status: Never Smoked - CARDIAC Hx Congestive Heart Failure: Yes (Florid) Hx Hypercholesterolemia: Yes Hx Hypertension: Yes Hx Peripheral Edema: Yes - NEUROLOGICAL Hx Seizures: Yes - HEENT Hx HEENT Problems: Yes Hx Cataracts: Yes Hx Glaucoma: Yes - RENAL Hx Chronic Kidney Disease: Yes Date of Last Dialysis Treatment: 03/13/17 Hx Kidney Stones: Yes - ENDOCRINE/METABOLIC Hx Hyperthyroidism: Yes Hx Hypothyroidism: Yes - HEMATOLOGICAL/ONCOLOGICAL Hx Anemia: Yes - INTEGUMENTARY Hx Dermatological Problems: Yes Other/Comment: DRY ITCHY SKIN ;multiple/generalized dark spots on skin - MUSCULOSKELETAL/RHEUMATOLOGICAL Hx Falls: No Hx Fractures: Yes (Sep 2012 L foot) - GASTROINTESTINAL Hx Gall Bladder Disease: Yes (gallbladder removed) Hx Gastritis: Yes Hx Pancreatitis: Yes (chronic) - PSYCHIATRIC Hx Anxiety: Yes Hx Substance Use: No - SURGICAL HISTORY Hx Cholecystectomy: Yes Hx Coronary Stent: Yes - ANESTHESIA Hx Anesthesia: Yes Hx Anesthesia Reactions: No Hx Malignant Hyperthermia: No Meds Home Medications: Home Medication List Medication Instructions Recorded Confirmed Type Metoclopramide [Reglan] 10 mg PO ONCE #30 dose 03/14/17 Rx Allergies/Adverse Reactions: Allergies Allergy/AdvReac Type Severity Reaction Status Date / Time ketorolac tromethamine Allergy RASH Verified 03/13/17 12:53 [From Toradol] latex Allergy RASH Verified 03/13/17 12:53 morphine Allergy RASH Verified 03/13/17 12:53 tramadol Allergy RASH Verified 03/13/17 12:53 Results - Vital Signs Recent Vital Signs: Last Vital Signs Temp 97.4 F L 03/14/17 16:09 Pulse 68 03/14/17 18:20 Resp 20 03/14/17 16:09 BP 158/80 H 03/14/17 18:20 Pulse Ox 95 03/14/17 16:09 - Labs Result Diagrams: 03/14/17 08:03 03/14/17 08:03 Labs: Laboratory Results - last 24 hr 03/13/17 03/13/17 03/14/17 21:20 22:10 01:48 WBC RBC Hgb Hct MCV MCH MCHC RDW Plt Count MPV Neut % (Auto) Lymph % (Auto) [place] % (Auto) Eos % (Auto) Baso % (Auto) Neut # Lymph # [place] # Eos # Baso # Neutrophils % (Manual) 83 H Band Neutrophils % 4 H Lymphocytes % (Manual) 4 L Monocytes % (Manual) 2 Eosinophils % (Manual) 6 H Basophils % (Manual) 1 Platelet Estimate Normal Large Platelets Present Hypochromasia (manual) Slight Microcytosis (manual) Slight Sodium Potassium Chloride Carbon Dioxide Anion Gap BUN Creatinine Est GFR ( Amer) Est GFR (Non-Af Amer) POC Glucose (mg/dL) 291 H Random Glucose Calcium Total Bilirubin AST ALT Alkaline Phosphatase Total Creatine Kinase 99 CK-MB (Mass) 1.96 Troponin I, Quant 0.0570 Total Protein Albumin Globulin Albumin/Globulin Ratio 03/14/17 03/14/17 03/14/17 06:13 08:03 08:03 WBC 7.4 RBC 2.97 L Hgb 9.3 L Hct 28.3 L MCV 95.3 MCH 31.4 H MCHC 32.9 L RDW 16.0 H Plt Count 339 MPV 7.5 Neut % (Auto) 67.2 Lymph % (Auto) 14.3 L [place] % (Auto) 7.0 Eos % (Auto) 10.1 H Baso % (Auto) 1.4 Neut # 4.9 Lymph # 1.1 [place] # 0.5 Eos # 0.7 Baso # 0.1 Neutrophils % (Manual) Band Neutrophils % Lymphocytes % (Manual) Monocytes % (Manual) Eosinophils % (Manual) Basophils % (Manual) Platelet Estimate Large Platelets Hypochromasia (manual) Microcytosis (manual) Sodium 139 Potassium 4.4 Chloride 94 L Carbon Dioxide 27 Anion Gap 22 H BUN 47 H Creatinine 6.3 H Est GFR ( Amer) 9 Est GFR (Non-Af Amer) 8 POC Glucose (mg/dL) 253 H Random Glucose 175 H Calcium 6.1 L Total Bilirubin 0.6 AST 26 ALT 29 Alkaline Phosphatase 143 H D Total Creatine Kinase 100 CK-MB (Mass) 1.74 Troponin I, Quant 0.0700 Total Protein 7.0 Albumin 3.4 L Globulin 3.6 Albumin/Globulin Ratio 0.9 L 03/14/17 03/14/17 03/14/17 11:03 14:00 14:18 WBC RBC Hgb Hct MCV MCH MCHC RDW Plt Count MPV Neut % (Auto) Lymph % (Auto) [place] % (Auto) Eos % (Auto) Baso % (Auto) Neut # Lymph # [place] # Eos # Baso # Neutrophils % (Manual) Band Neutrophils % Lymphocytes % (Manual) Monocytes % (Manual) Eosinophils % (Manual) Basophils % (Manual) Platelet Estimate Large Platelets Hypochromasia (manual) Microcytosis (manual) Sodium Potassium Chloride Carbon Dioxide Anion Gap BUN Creatinine Est GFR ( Amer) Est GFR (Non-Af Amer) POC Glucose (mg/dL) 80 41 L 63 L Random Glucose Calcium Total Bilirubin AST ALT Alkaline Phosphatase Total Creatine Kinase CK-MB (Mass) Troponin I, Quant Total Protein Albumin Globulin Albumin/Globulin Ratio 03/14/17 03/14/17 16:40 19:25 WBC RBC Hgb Hct MCV MCH MCHC RDW Plt Count MPV Neut % (Auto) Lymph % (Auto) [place] % (Auto) Eos % (Auto) Baso % (Auto) Neut # Lymph # [place] # Eos # Baso # Neutrophils % (Manual) Band Neutrophils % Lymphocytes % (Manual) Monocytes % (Manual) Eosinophils % (Manual) Basophils % (Manual) Platelet Estimate Large Platelets Hypochromasia (manual) Microcytosis (manual) Sodium Potassium Chloride Carbon Dioxide Anion Gap BUN Creatinine Est GFR ( Amer) Est GFR (Non-Af Amer) POC Glucose (mg/dL) 334 H 318 H Random Glucose Calcium Total Bilirubin AST ALT Alkaline Phosphatase Total Creatine Kinase CK-MB (Mass) Troponin I, Quant Total Protein Albumin Globulin Albumin/Globulin Ratio Assessment & Plan - Assessment and Plan (Free Text) Assessment: ESRD ON HD M W F AND SAT .. SEEN ON HD TODAY .. ALSO HAD STAT HD YESTERDAY ANEMIA OF CKD .. ON EPO ABDO PAIN .. D GASTROPERESIS MMP P: CASE D/W RESIDENT .. NO NEED FOR PICC LINE IF PT GOING TO GET VANCO AN OUT PT CLEAR RENALLY FOR D/C WILL ARRANGE FOR OUT PT VANCO IN THE HD CENTER D/W DR GREER - Date & Time Date: 03/14/17 Time: 15:00
== END 2017-03-14 21:02 | disposition home or self-care (01) ==
LOC: C.ER 12:45 → C.9E 14:11 → C.5T 16:06
PROVIDERS: ADMIT Internal Medicine; ATTEND Internal Medicine
DX: D63.1 Anemia in chronic kidney disease (principal); E03.9 Hypothyroidism, unspecified; E83.51 Hypocalcemia; E87.5 Hyperkalemia; F11.20 Opioid dependence, uncomplicated; I13.2 Hypertensive heart and chronic kidney disease with heart failure and with stage 5 chronic kidney disease, or end stage renal disease; I16.0 Hypertensive urgency; I25.2 Old myocardial infarction; I50.9 Heart failure, unspecified; K31.84 Gastroparesis; K59.03 Drug induced constipation; E11.43 Type 2 diabetes mellitus with diabetic autonomic (poly)neuropathy; E11.22 Type 2 diabetes mellitus with diabetic chronic kidney disease; N18.6 End stage renal disease; Z76.5 Malingerer [conscious simulation]; Z99.2 Dependence on renal dialysis
CPT/HCPCS: 36415; 80053; 80061; 82948; 83036; 84484; 85025; 99285; G0257; G0378; J0360; J1170; J1200; J2405; J2765; J3370

== ENCOUNTER 2017-03-19 05:44 | Inpatient (IN) | payer MEDICAID ==
[2017-03-19 05:51] VITALS: BMI 21.9
[2017-03-19] MEDS ORDERED: Gentamicin 80 mg in 0.9% NS 80 MG/100 ML BAG IVPB ONE (06:11)
[2017-03-19] MEDS ORDERED: Vancomycin 1 GM 1 GM/250 ML BAG IV STA (06:19)
[2017-03-19 06:20] LABS: BASO # 0.2 K/uL (0.0-0.2); BASO % 1.2 % (0.0-2.0); EOS # 0.9 K/uL (0.0-0.7); EOS % 6.5 % (0.0-4.0); HEMOGLOBIN 9.5 g/dL (11.0-16.0); LYMPH # 1.1 K/uL (1.0-4.3); LYMPH % 7.6 % (20.0-40.0); MEAN CELL VOLUME 94.1 fL (81.0-99.0); MEAN CORPUSCULAR HEMOGLOBIN 30.7 pg (27.0-31.0); MEAN CORPUSCULAR HGB CONC 32.6 g/dL (33.0-37.0); MEAN PLATELET VOLUME 7.8 fL (7.2-11.7); MONO # 0.6 K/uL (0.0-0.8); MONO % 4.1 % (0.0-10.0); NEUT # 11.5 K/uL (1.8-7.0); NEUT % 80.6 % (50.0-75.0); PLATELET COUNT 312 K/uL (130-400); RBC 3.09 Mil/uL (3.80-5.20); RED CELL DISTRIBUTION WIDTH 15.4 % (11.5-14.5); WHITE BLOOD COUNT 14.3 K/uL (4.8-10.8)
[2017-03-19] MEDS ORDERED: Vancomycin 1 GM 1 GM/250 ML BAG IVPB ONE (06:26)
--- NOTE | 2017-03-19 06:29 | C.PDOC ---
History Of Present Illness BIBA for SOB pending HD today, 2PM BIBA, noted to have rales and started on BiPap and NTP 1 inche to ACW usual c/o belly discomfort. no c/o fever Recent dx of UTI (though makes only scant urine) unclear if compliant with PO abx or if UTI resolved. Time Seen by Provider: 03/19/17 05:53 Chief Complaint (Nursing): Respiratory Distress History Per: Patient, EMS History/Exam Limitations: no limitations, clinical condition Onset/Duration Of Symptoms: Mins Current Symptoms Are (Timing): Still Present Location Of Pain: Other Past Medical History Reviewed: Historical Data, Nursing Documentation, Vital Signs Vital Signs: Last Vital Signs Temp 101 F H 03/19/17 06:00 Pulse 120 H 03/19/17 05:53 Resp 26 H 03/19/17 05:53 BP 220/127 H 03/19/17 05:53 Pulse Ox 100 03/19/17 06:39 - Medical History PMH: Anemia, Anxiety, CHF (Florid), Diabetes, Fractures (Sep 2012 L foot), Gastritis, Gastrointestinal Ulcer (gastroparesis), Gall Bladder Disease ( gallbladder removed), Hepatitis, HTN, Hypercholesterolemia, Hyperthyroidism, Hypothyroidism, Kidney Stones, Pancreatitis (chronic), Peripheral Edema, End Stage Renal Disease, Chronic Kidney Disease, Seizures, Chronic Pain Surgical History: Cholecystectomy, Coronary Stent - [facility] Procedures ASSISTANCE WITH RESPIRATORY VENTILATION, 24-96 HRS, CPAP (11/27/16) CAUTERY TO STOP EPISTAX (03/22/14) CENTRAL VENOUS CATHETER PLACEMENT WITH GUIDANCE (11/06/14) DIALYSIS ARTERIOVENOSTOM (01/10/14) DRAINAGE OF RIGHT FOOT SKIN, EXTERNAL APPROACH (07/17/16) DRAINAGE OF RIGHT LOWER ARM SKIN, EXTERNAL APPROACH (05/25/16) ESOPHAGOGASTRODUODENOSCOPY [EGD] W/CLOSED BIOPSY (03/03/14) EXCISION OF STOMACH, ENDO, DIAGN (05/09/16) EXTIRPATE MATTER FROM R LOW ARM SUBCU/FASCIA, PERC (05/25/16) EXTRACTION OF RIGHT FOOT SKIN, EXTERNAL APPROACH (05/25/16) FLEXIBLE SIGMOIDOSCOPY (10/26/14) FLUOROSCOPY OF R JUGULAR VEIN USING L OSM CONTRAST, GUIDANCE (12/13/15) FLUOROSCOPY OF RIGHT SUBCLAVIAN VEIN, GUIDANCE (08/07/16) HEMODIALYSIS (04/05/15) INJECT INSULIN (12/23/12) INJECT/INFUSE ELECTROLYT (12/23/12) INJECT/INFUSE NEC (01/17/15) INSERT INFUSION DEV IN R INT JUGULAR VEIN, PERC (02/23/16) INSERTION OF INFUSION DEV INTO R BASILIC VEIN, PERC APPROACH (04/18/16) INSERTION OF INFUSION DEV INTO R BRACH VEIN, PERC APPROACH (02/19/17) INSERTION OF INFUSION DEV INTO R SUBCLAV VEIN, PERC APPROACH (08/29/16) INSERTION OF INFUSION DEV INTO SUP VENA CAVA, PERC APPROACH (05/25/16) INSERTION OF INFUSION DEVICE INTO R ATRIUM, PERC APPROACH (12/13/15) INSERTION OF VAD INTO CHEST SUBCU/FASCIA, OPEN APPROACH (12/13/15) MEASURE OF CARDIAC SAMPL & PRESSURE, L HEART, PERC APPROACH (10/09/16) OTHER ENDOSCOPY OF SM INTEST (08/25/14) PACKED CELL TRANSFUSION (10/26/14) PERFORMANCE OF URINARY FILTRATION, MULTIPLE (02/19/17) PERFORMANCE OF URINARY FILTRATION, SINGLE (11/27/16) PLAIN RADIOGRAPHY OF LEFT HEART USING OTHER CONTRAST (10/09/16) PLAIN RADIOGRAPHY OF MULT COR ART USING OTH CONTRAST (10/09/16) PLICATION OF VENA CAVA (03/22/14) POST NASAL PAC FOR EPIST (03/22/14) REMOVAL OF VAD FROM TRUNK SUBCU/FASCIA, OPEN APPROACH (02/23/16) [facility] SHUNT (03/03/14) THERAPEUTIC ERYTHROCYTAPHERESIS (10/26/14) TRANSFUSE NONAUT RED BLOOD CELLS IN PERIPH VEIN, PERC (02/19/17) ULTRASONOGRAPHY OF RIGHT AND LEFT HEART, TRANSESOPHAGEAL (02/19/17) ULTRASONOGRAPHY OF RIGHT SUBCLAVIAN VEIN, GUIDANCE (08/29/16) ULTRASONOGRAPHY OF RIGHT UPPER EXTREMITY VEINS, GUIDANCE (02/19/17) VACCINATION NEC (10/26/14) VENOUS CATHETERIZATION FOR RENAL DIALYSIS (03/03/14) Family History: States: Unknown Family Hx - Social History Hx Tobacco Use: No Hx Alcohol Use: No Hx Substance Use: No - Immunization History Hx Tetanus Toxoid Vaccination: No Hx Influenza Vaccination: Yes Hx Pneumococcal Vaccination: Yes Review Of Systems Except As Marked, All Systems Reviewed And Found Negative. Gastrointestinal: Positive for: Other (crampy abd discomfort, constipation) Physical Exam - Physical Exam Appears: In Acute Distress, Chronically Ill Skin: Normal Color Head: Atraumatic, Normacephalic, Tenderness Eye(s): bilateral: Normal Inspection Oral Mucosa: Moist Lymphatic: Deferred Chest: Symmetrical Cardiovascular: Rhythm Regular Respiratory: No Rales, Other (no rales) ED Course And Treatment - Laboratory Results Result Diagrams: 03/19/17 06:18 ECG: Interpreted By [place] ECG Rhythm: Sinus Tachycardia ECG Interpretation: Normal, Abnormal Rate From EC O2 Sat by Pulse Oximetry: 100 Pulse Ox Interpretation: Normal - Radiology CXR: Interpreted by Me CXR Interpretation: Yes: Heart Size, Other (+ fluid overload ) Reevaluation Time: 06:30 Reassessment Condition: Improved - Physician Consult Information Outcome Of Conversation: [id number]: d/w Dr. Gunn, covereing Dr. Phillips, will order STAT HD Medical Decision Making Medical Decision Making: uncontrolled HTN and CHF c/w fluid overload in HD pt on long weekend (usually M/ W/F HD) pending HD later today Fever of ? etiology- suspect urine as had infected urine about 1 week ago Vanco/Gent started empirically. pending stat HD Disposition Doctor Will See Patient In The: Hospital Counseled Patient/Family Regarding: Studies Performed, Diagnosis - Disposition Disposition: HOSPITALIZED Disposition Time: 07:00 Condition: FAIR Forms: Tyba (Lebanese) - Clinical Impression Clinical Impression: End stage renal disease on dialysis, Congestive heart failure, Fever Physician Patient Turnover Patient Signed Over To: Danitza Hansen Handoff Comments: f/u labs and adm to Hospitalists. Pending STAT HD with Dr. Gunn
[2017-03-19 07:04] LABS: INR 1.1; PROTHROMBIN TIME 12.2 SECONDS (9.7-12.2)
[2017-03-19 07:33] LABS: ALB/GLOB RATIO 1.2 (1.0-2.1); TROPONIN I 0.049 ng/mL (0.00-0.120)
[2017-03-19 07:52] LABS: BANDS 2 % (0-2); EOSINOPHIL 5 % (0-4); LYMPHOCYTE 6 % (20-40); MONOCYTE 5 % (0-10); NEUTROPHIL 82 % (50-75); TOTAL CELLS COUNTED 100
[2017-03-19 07:53] LABS: PLATELET ESTIMATE NORMAL (NORMAL)
--- NOTE | 2017-03-19 09:27 | CP.PCM.HP ---
<Mary Gallegos - Last Filed: 03/19/17 12:39> History of Present Illness - History of Present Illness History of Present Illness: Medicine Note for Dr. Martinez, 31 F with PMHx gastroparesis, diabetes, hypertension, ESRD (HD MWF), [place] in 2004 , chronic opiate dependance who came in with complaint of SOB and abdominal pain. Patient had severe intractable abdominal pain starting on Sunday. The pain is diffuse and rated as a 10/10. Patient is unable to describe the quality of the pain but admits that it is similar to previous bouts of abdominal pain. Abdominal pain is unrelated to meals. There is no change in stool frequency or consistency. Patient denied constipation or diarrhea.Patient also complained of chest pain during hemodialysis. Patient states that her baseline Systolic BP is in the 200s. Patient has been on Vancomycin as an outpatient for osteomyelitis. Per note from previous admission, Dr. Pinto specified that the patient should be on Vancomycin for 4-6 weeks. Patient has been going to Dialysis at [facility] on [address] [place] [address] in [place]. She was receiving Vancomycin after dialysis sessions M,W,F. Patient did not want us to examine her or take care of her. She stated if we do not give her pain medications, she would prefer if we did not take care of her at all. We expressed our concerns, explaining to her about her frequent admissions and requesting of Dilaudid. Hospitalist service apologized for the inconvenience, however, we talked about different options for pain management. Patient began to become irritated and did not want to talk to us any further. PMHx: Gastroparesis, DM, HTN, ESRD (HD MWF), [place] in 2004, chronic opiate dependence PSHx: exploratory laparatomy in 2005 and 2009 for adhesions. Cholecystecomy in 2009. L arm AVF 2014, I&D right foot abscess Meds: As per OCT Allergies: Toradol, Latex, Morphine, Tramadol Social: Denied illicit drug use, alcohol, tobacco. Family Hx: Mother with DM. Unspecified history of cancer on mom's side of family. PMD: Dr. Anshul Sexton Nephro: Dr. Phillips Present on Admission - Present on Admission Any Indicators Present on Admission: No Review of Systems - Constitutional Constitutional: absent: Fever, Weakness - EENT Eyes: absent: Change in Vision Ears: absent: Ear Pain, Tinnitus Nose/Mouth/Throat: absent: Dysphagia - Breasts Breasts: absent: Pain - Cardiovascular Cardiovascular: absent: Chest Pain - Respiratory Respiratory: Dyspnea. absent: Cough - Gastrointestinal Gastrointestinal: Abdominal Pain, Nausea, Vomiting. absent: Diarrhea - Musculoskeletal Musculoskeletal: absent: Back Pain - Integumentary Integumentary: absent: Change in Hair - Neurological Neurological: absent: Weakness - Psychiatric Psychiatric: absent: Anxiety - Endocrine Endocrine: absent: Polydipsia, Polyphagia, Polyuria - Hematologic/Lymphatic Hematologic: absent: Easy Bleeding Past Patient History - Infectious Disease Hx of Infectious Diseases: None - Tetanus Immunizations Tetanus Immunization: Unknown - Past Medical History & Family History Past Medical History?: Yes - Past Social History Smoking Status: Never Smoked - CARDIAC Hx Congestive Heart Failure: Yes ([place]) Hx Hypercholesterolemia: Yes Hx Hypertension: Yes Hx Peripheral Edema: Yes - NEUROLOGICAL Hx Seizures: Yes - HEENT Hx HEENT Problems: Yes Hx Cataracts: Yes Hx Glaucoma: Yes - RENAL Hx Chronic Kidney Disease: Yes Hx Kidney Stones: Yes - ENDOCRINE/METABOLIC Hx Hyperthyroidism: Yes Hx Hypothyroidism: Yes - HEMATOLOGICAL/ONCOLOGICAL Hx Anemia: Yes - INTEGUMENTARY Hx Dermatological Problems: Yes Other/Comment: DRY ITCHY SKIN ;multiple/generalized dark spots on skin - MUSCULOSKELETAL/RHEUMATOLOGICAL Hx Fractures: Yes (Sep 2012 L foot) - GASTROINTESTINAL Hx Gall Bladder Disease: Yes (gallbladder removed) Hx Gastritis: Yes Hx Pancreatitis: Yes (chronic) - PSYCHIATRIC Hx Anxiety: Yes Hx Substance Use: No - SURGICAL HISTORY Hx Cholecystectomy: Yes Hx Coronary Stent: Yes - ANESTHESIA Hx Anesthesia: Yes Hx Anesthesia Reactions: No Hx Malignant Hyperthermia: No Meds Allergies/Adverse Reactions: Allergies Allergy/AdvReac Type Severity Reaction Status Date / Time ketorolac tromethamine Allergy RASH Verified 03/19/17 05:51 [From Toradol] latex Allergy RASH Verified 03/19/17 05:51 morphine Allergy RASH Verified 03/19/17 05:51 tramadol Allergy RASH Verified 03/19/17 05:51 Physical Exam - Constitutional Appears: No Acute Distress - Head Exam Head Exam: NORMAL INSPECTION, NORMOCEPHALIC - Eye Exam Eye Exam: EOMI, Normal appearance, PERRL Pupil Exam: NORMAL ACCOMODATION - ENT Exam ENT Exam: Mucous Membranes Dry - Respiratory Exam Additional comments: PATIENT WOULD NOT ALLOW US TO EXAMINE HER. - Cardiovascular Exam Additional comments: PATIENT WOULD NOT ALLOW US TO EXAMINE HER. - GI/Abdominal Exam Additional comments: PATIENT WOULD NOT ALLOW US TO EXAMINE HER. - Extremities Exam Additional comments: PATIENT WOULD NOT ALLOW US TO EXAMINE HER. - Neurological Exam Neurological exam: Alert, Oriented x3 Additional comments: PATIENT WOULD NOT ALLOW US TO EXAMINE HER. - Skin Skin Exam: Normal Color Results - Vital Signs Recent Vital Signs: Last Vital Signs Temp 99.2 F 03/19/17 07:40 Pulse 93 H 03/19/17 09:10 Resp 17 03/19/17 09:10 BP 161/98 H 03/19/17 09:10 Pulse Ox 100 03/19/17 09:10 - Labs Result Diagrams: 03/19/17 06:18 03/19/17 06:18 Assessment & Plan - Assessment and Plan (Free Text) Plan: ESRD on HD- MWF Fluid overloaded Consult: Dr. Teague (help appreciated) History of diabetic gastroparesis Accuchecks QAC&HS Novolog ISS Levemir 12 units SQ Q12H History of osteomyelitis of left clavicle Clarification: patient finished antibiotic therapy Finished Daptomycin at [facility] on 02/11/17 Recently admitted at [facility] and discharged with Vancomycin 750 mg M,W,F after HD -->confirmed with ID Patient missed dose on Sunday. Last received on Sunday. So 1 time dose given today in the evening after HD per discussion with ID Opioid Dependence; Drug seeking behavior (per EMR) Zofran 4 mg IV Q6 PRN Reglan 10 mg IV Q6 PRN Hx of requesting Diluadid 3mg IVP Q3H Patient will not get additional dosing; needs to follow-up with pain management Hx of hypertensive cardiomyopathy KAMRAN 03/02/17: No evidence of endocarditis. LVEF WNL. Cardiac Catheterization on prior admission revealed patent coronaries;; hypertensive cardiomyopahy EF: 45 Clonidine 0.3 mg PO TID Procardia XL 60 mg PO Q12H Prophylactic Measure Heparin 5000 units SQ Q12H Pepcid 20 mg IV daily Patient did not want us to examine her or take care of her. She stated if we do not give her pain medications, she would prefer if we did not take care of her at all. We expressed our concerns, explaining to her about her frequent admissions and requesting of Dilaudid. Hospitalist service apologized for the inconvenience, however, we talked about different options for pain management. Patient began to become irritated and did not want to talk to us any further. Disposition: Patient will receive her scheduled dialysis today, and discharge later today or tomorrow morning, pending patient's wishes. Rosy Nation Dr., DO, PGY-1 <Herman Martinez H - Last Filed: 03/19/17 17:19> Results - Vital Signs Recent Vital Signs: Last Vital Signs Temp 97.8 F 03/19/17 14:15 Pulse 91 H 03/19/17 14:15 Resp 18 03/19/17 14:45 BP 147/114 H 03/19/17 16:30 Pulse Ox 100 03/19/17 14:15 - Labs Result Diagrams: 03/19/17 06:18 03/19/17 06:18 Labs: Laboratory Results - last 24 hr 03/19/17 09:59 POC Glucose (mg/dL) 226 H Attending/Attestation - Attestation I have personally seen and examined this patient.: Yes I have fully participated in the care of the patient.: Yes I have reviewed all pertinent clinical information: Yes Notes (Text): Medical attending: Patient was seen and examined by me, agree with the above note by medical staff manager. We saw the patient together in the emergency room. I was informed by the patient that she no longer wanted to see her previous physicians. And therefore the emergency room notify the hospitalist service. This is a patient that is well known to the hospital as well as the hospitalist service as well as other physicians here . Of significant note is on multiple ER visits and multiple hospitalizations. She does have a history of end-stage renal disease and unfortunately this is complicated with her history of wanting to use very large amounts of IV Dilaudid. I am very politely explained to her that because of the history of such large uses Dilaudid that I did not feel comfortable giving this to her. She explained to me that she has diabetic gastroparesis and the only medication that will help her is Dilaudid. She did not want anything such as Toradol, Morphine or Tramadol, etc because she reports that these cause her to have allergies and itching and she only wants large amounts of Dilaudid She has had a previous hospitalizations where she is in need of hemodialysis. And in the past unfortunately she refuses to undergo hemodialysis until she gets her request of large amounts of IV Dilaudid. She also has a history of very elevated blood pressure as well and likely this is a complication of her not getting timely dialysis. I was just informed that the patient is refusing a lot of her medications until she gets her IV Dilaudid. As reported previously, she's had many hospital and ER visits. Again I feel very very uncomfortable giving the patient further narcotic pain medication due to safety reasons as well as the habit-forming nature of dilaudid. We explained to her that we can give her hemodialysis because she does needed, however we did apologize to her saying he would not be giving Dilaudid. She was very upset with this, she stated that she was not going to sign out AMA until she get IV Dilaudid. thank you Herman Martinez
[2017-03-19] MEDS: NIFEdipine 60 mg ER Tab PO SCH ×2 (10:30→20:46)
[2017-03-19] MEDS: Pantoprazole 40 mg EC Tab PO SCH (10:30)
[2017-03-19] MEDS: Insulin Detemir 100 units/ml Vial (Levemir) SC SCH ×2 (10:30→22:23)
[2017-03-19] MEDS ORDERED: Insulin Detemir 100 units/ml Vial (Levemir) SC ONE (10:46)
[2017-03-19] MEDS ORDERED: DiphenhydrAMINE 50 mg/ml Inj IVP STA ×3 (14:34→20:49)
--- NOTE | 2017-03-19 16:47 | CP.PCM.PN ---
<Keith Padilla - Last Filed: 03/19/17 19:29> Subjective - Date & Time of Evaluation Date of Evaluation: 03/19/17 Time of Evaluation: 04:25 - Subjective Subjective: House Resident Note Called downstairs to evaluate patient at around 3pm. Patient is requesting for pain medication, repeatedly . I explained to her that Dr. Martinez, her attending, does not want to give pain medications at this time due to the fact that it will worsen her gastroparesis. I was informed by nursing that she has been refusing her blood pressure medication, and has been saying that she doesn't care if she has a stroke or a heart attack. I explained to her the severity of the consequences, but she says she is set on her thinking. She states she does not want to be under Dr. Martinez's care, but I explained that transferring care to another doctor will be difficult, as there is a need to find an accepting physician. Rapid response called at 5:19pm Nursing reports that the patient requested to have her dialysis stopped. The needle was removed and patient had pressure held to her dialysis site to stop the bleeding. Nurse reports that the pt yanked her own arm away from the nurse saying that she did not care if she bled to , and she did not care if she . Patient bled on the floor and cried that she was tired of being sick and being denied her pain medication. Patient refused all treatment, including ativan and stated that she wanted to bleed to . Patient's mother was present, as well as Dr. Martinez, Dr. Sexton and security, as well as dialysis and icu nurse. Psych was called, Dr. Garza, who recommended Ativan 1 mg, but stated that if she refused, it cannot be given. Patient was started on Dilaudid 1mg IVP Q4h and put on 1:1 for suicidal ideation. Objective - Vital Signs/Intake and Output Vital Signs (last 24 hours): Temp Pulse Resp BP Pulse Ox 97.8 F 91 H 18 204/111 H 100 03/19/17 14:15 03/19/17 14:15 03/19/17 14:45 03/19/17 15:15 03/19/17 14:15 - Medications Medications: Current Medications Calcium Acetate (Phoslo) 667 mg PO TIDCC [facility] Last Admin: 03/19/17 12:24 Dose: Not Given Clonidine HCl (Catapres-Tts3 0.3 Mg/24 Hr) 1 patch TD Q7D@1000 [facility] Last Admin: 03/19/17 10:30 Dose: Not Given Diphenhydramine HCl (Benadryl) 25 mg IVP STAT STA Stop: 03/19/17 16:25 Docusate Sodium (Colace) 100 mg PO TID [facility] Last Admin: 03/19/17 10:30 Dose: Not Given Heparin Sodium (Porcine) (Heparin) 5,000 units SC Q12 [facility] Last Admin: 03/19/17 10:30 Dose: Not Given Insulin Detemir (Levemir) 12 unit SC Q12 [facility] Last Admin: 03/19/17 10:30 Dose: Not Given Insulin Human Regular (Novolin R) 0 unit SC ACHS [facility] PRN Reason: Protocol Metoclopramide HCl (Reglan) 10 mg IVP Q6H PRN PRN Reason: Nausea/Vomiting 2ND LINE Nifedipine (Procardia Xl) 60 mg PO BID [facility] Last Admin: 03/19/17 10:30 Dose: Not Given Ondansetron HCl (Zofran Inj) 4 mg IVP Q6H PRN PRN Reason: Nausea/Vomiting 1ST LINE Pantoprazole Sodium (Protonix Ec Tab) 40 mg PO DAILY [facility] Last Admin: 03/19/17 10:30 Dose: Not Given - Labs Labs: PT 12.2 SECONDS (9.7-12.2) 03/19/17 06:49 INR 1.1 03/19/17 06:49 APTT 29 SECONDS (21-34) 03/19/17 06:49 <Herman Martinez H - Last Filed: 03/20/17 07:14> Objective - Vital Signs/Intake and Output Vital Signs (last 24 hours): Temp Pulse Resp BP Pulse Ox 98.6 F 83 18 204/120 H 100 03/19/17 20:00 03/20/17 03:35 03/19/17 20:00 03/19/17 20:00 03/19/17 17:05 Intake and Output: 03/20/17 03/20/17 06:59 18:59 Intake Total 300 Balance 300 - Medications Medications: Current Medications Calcium Acetate (Phoslo) 667 mg PO TIDCC [facility] Last Admin: 03/19/17 12:24 Dose: Not Given Clonidine HCl (Catapres-Tts3 0.3 Mg/24 Hr) 1 patch TD Q7D@1000 [facility] Last Admin: 03/19/17 10:30 Dose: Not Given Docusate Sodium (Colace) 100 mg PO TID [facility] Last Admin: 03/19/17 20:46 Dose: Not Given Heparin Sodium (Porcine) (Heparin) 5,000 units SC Q12 [facility] Last Admin: 03/19/17 22:07 Dose: Not Given Hydromorphone HCl (Dilaudid) 1 mg IVP Q4H PRN PRN Reason: Pain, severe (8-10) Last Admin: 03/20/17 06:22 Dose: 1 mg Insulin Detemir (Levemir) 12 unit SC Q12 [facility] Last Admin: 03/19/17 22:23 Dose: 12 unit Insulin Human Regular (Novolin R) 0 unit SC ACHS [facility] PRN Reason: Protocol Last Admin: 03/19/17 22:22 Dose: 4 unit Metoclopramide HCl (Reglan) 10 mg IVP Q6H PRN PRN Reason: Nausea/Vomiting 2ND LINE Nifedipine (Procardia Xl) 60 mg PO BID [facility] Last Admin: 03/19/17 20:46 Dose: Not Given Ondansetron HCl (Zofran Inj) 4 mg IVP Q6H PRN PRN Reason: Nausea/Vomiting 1ST LINE Pantoprazole Sodium (Protonix Ec Tab) 40 mg PO DAILY [facility] Last Admin: 03/19/17 10:30 Dose: Not Given - Labs Labs: PT 12.2 SECONDS (9.7-12.2) 03/19/17 06:49 INR 1.1 03/19/17 06:49 APTT 29 SECONDS (21-34) 03/19/17 06:49
[2017-03-19] MEDS: (Novolin R) Insulin Human Regular 100 units/ml vial SC SCH (22:22)
--- NOTE | 2017-03-20 08:12 | CARD ---
APPROVED REPORT EKG Measurement Heart [id number] <Conclusion> Sinus tachycardia Possible Left atrial enlargement Borderline ECG
[2017-03-20] MEDS: (Novolin R) Insulin Human Regular 100 units/ml vial SC SCH ×4 (08:23→21:44)
--- NOTE | 2017-03-20 08:52 | RAD ---
PROCEDURE: CHEST RADIOGRAPH, 1 VIEW HISTORY: SHORTNESS OF BREATH COMPARISON: 12/04/2016 FINDINGS: LUNGS: Marked diffuse confluent opacifications throughout both lungs suggestive for severe edema and or infiltrate. Questionable bilateral pleural effusions. PLEURA: As above. CARDIOVASCULAR: Cardiomegaly. OSSEOUS STRUCTURES: No significant abnormalities. VISUALIZED UPPER ABDOMEN: IVC filter in place. OTHER FINDINGS: Retained catheter fragments seen projecting over the right scapula in the axillary region. IMPRESSION: Marked diffuse confluent opacifications throughout both lungs suggestive for severe edema and or infiltrate. Questionable bilateral pleural effusions.
[2017-03-20] MEDS: Pantoprazole 40 mg EC Tab PO SCH (10:29)
[2017-03-20] MEDS: Insulin Detemir 100 units/ml Vial (Levemir) SC SCH ×2 (10:29→21:45)
[2017-03-20] MEDS: NIFEdipine 60 mg ER Tab PO SCH ×2 (10:55→17:43)
[2017-03-20 11:30] LABS: BASO # 0.1 K/uL (0.0-0.2); BASO % 1.5 % (0.0-2.0); EOS # 1.4 K/uL (0.0-0.7); EOS % 16.1 % (0.0-4.0); HEMOGLOBIN 9.8 g/dL (11.0-16.0); LYMPH # 1.4 K/uL (1.0-4.3); LYMPH % 16.5 % (20.0-40.0); MEAN CELL VOLUME 94.7 fL (81.0-99.0); MEAN CORPUSCULAR HEMOGLOBIN 31.3 pg (27.0-31.0); MEAN CORPUSCULAR HGB CONC 33.1 g/dL (33.0-37.0); MEAN PLATELET VOLUME 9.5 fL (7.2-11.7); MONO # 0.4 K/uL (0.0-0.8); MONO % 4.2 % (0.0-10.0); NEUT # 5.3 K/uL (1.8-7.0); NEUT % 61.7 % (50.0-75.0); NRBC % 0.1 % (0.0-2.0); RBC 3.12 Mil/uL (3.80-5.20); RED CELL DISTRIBUTION WIDTH 15.2 % (11.5-14.5); WHITE BLOOD COUNT 8.6 K/uL (4.8-10.8)
[2017-03-20 11:58] LABS: ALBUMIN 3.9 g/dL (3.5-5.0)
[2017-03-20 12:01] LABS: MAGNESIUM 1.9 mg/dL (1.6-2.3)
--- NOTE | 2017-03-20 15:56 | PCM.PSYCH ---
Initial Psychiatric Evaluation - Initial Psychiatric Evaluation Type of Admission: Voluntary Legal Status: Capacity Chief Complaint (in patient's own words): I am feeling depressed and angry.' History of Present Illness and Precipitating Events: Pt is a 31 yrs old AAF, currently unemployed, with PMHx gastroparesis, diabetes , hypertension, ESRD, [place] in 2004, chronic opiate dependance who came in with complaint of SOB and abdominal pain. Today pt was consulted for depression. Patient denies any past history of inpatient psychiatric hospitalizations or any history of follow up with any psychiatrist. As per her, since past week, she is becoming increasingly depressed. Yesterday she became increasingly depressed and became irritable and agitated with the staff, when her pain meds were stopped. Patient reports feelings of hopelessness and helplessness, anhedonia, poor sleep and poor appetite. She denies any suicidal ideation or any plan. She denies any auditory or visual hallucinations or any persecutory delusions. Patient denies any drinking or substance abuse. Current Medications: Active Medications Generic Name Dose Route Start Last Admin Trade Name Emmanuelq PRN Reason Stop Dose Admin Calcium Acetate 667 mg 03/19/17 10:00 03/20/17 08:35 Phoslo PO Not Given TIDCC [facility] Clonidine HCl 1 patch 03/19/17 10:00 03/19/17 10:30 Catapres-Tts3 0.3 Mg/24 Hr TD Not Given Q7D@1000 [facility] Docusate Sodium 100 mg 03/19/17 10:00 03/20/17 10:29 Colace PO Not Given TID [facility] Heparin Sodium (Porcine) 5,000 units 03/19/17 10:00 03/20/17 10:29 Heparin SC Not Given Q12 [facility] Hydromorphone HCl 1 mg 03/19/17 17:49 03/20/17 10:29 Dilaudid IVP 1 mg Q4H PRN Administration Pain, severe (8-10) Insulin Detemir 12 unit 03/19/17 10:00 03/20/17 10:29 Levemir SC Not Given Q12 [facility] Insulin Human Regular 0 unit 03/19/17 11:30 03/20/17 13:42 Novolin R SC 4 unit ACHS [facility] Administration Protocol Metoclopramide HCl 10 mg 03/19/17 09:40 Reglan IVP Q6H PRN Nausea/Vomiting 2ND LINE Nifedipine 60 mg 03/19/17 10:00 03/20/17 10:55 Procardia Xl PO 60 mg BID [facility]EN Administration Ondansetron HCl 4 mg 03/19/17 09:45 Zofran Inj IVP Q6H PRN Nausea/Vomiting 1ST LINE Pantoprazole Sodium 40 mg 03/19/17 10:00 03/20/17 10:29 Protonix Ec Tab PO Not Given DAILY [facility] Past Psychiatric History - Past Psychiatric History Previous Treatment History: None Pertinent Medical Hx (Current Medical&Sleep Prob, Allergies): Allergies Allergy/AdvReac Type Severity Reaction Status Date / Time ketorolac tromethamine Allergy RASH Verified 03/19/17 05:51 [From Toradol] latex Allergy RASH Verified 03/19/17 05:51 morphine Allergy RASH Verified 03/19/17 05:51 tramadol Allergy RASH Verified 03/19/17 05:51 Calcium Acetate [Phoslo] 667 mg PO TID 12/13/15 Insulin Aspart, Recombinant [Novolog] 6 unit SC AC #0 unit 08/21/16 Diphenhydramine 1% [BENADRYL 1% Zinc Acetate -0.1%] 1 cre TOP BID PRN #1 tube Insulin Detemir [Levemir] 12 unit SC Q12 #1 vial 09/04/16 NIFEdipine ER [Procardia XL] 60 mg PO BID #30 ter 09/04/16 cloNIDine 0.3 mg/24 hr [catapres-TTS3 0.3 mg/24 hr] 1 patch TD Q7D@1000 #4 patch 09/04/16 Docusate [Colace] 100 mg PO TID 11/29/16 Vancomycin [Vancomycin Inj] 750 mg IVPB MWF vial 03/03/17 Metoclopramide [Reglan] 10 mg PO ONCE #30 dose 03/14/17 Review of Systems - Review of Systems All systems: reviewed and no additional remarkable complaints except - Psychiatric Psychiatric: Anxiety, Depression, Hopelessness, Irritability, Suicidal Ideation Mental Status Examination - Personal Presentation Personal Presentation: Looks stated age - Affect Affect: Constricted, Depressed - Motor Activity Motor Activity: Calm - Reliability in Providing Information Reliability in Providing Information: Fair - Speech Speech: Organized - Mood Mood: Depressed, Anxious - Formal Thought Process Formal Thought Process: No Impairment - Obsessions/Compulsions Obsessions: No Compulsions: No - Cognitive Functions Orientation: Person, Place, Situation, Time Sensorium: Alert Attention/Concentration: Attentive Abstract Thinking: [place] Estimate of Intelligence: Below average Judgement: Imparied, as evidence by: Poor judgement, Imparied, as evidence by: Lack of insight into illness - Risk Risk: Suicidal, Diminished functioning - Strength & Assets Inventory Strength & Assets Inventory: Family support DSM 5 DX - DSM 5 DSM 5 Diagnosis: Major depressive disorder single episode severe without psychotic features Opioid use disorder severe - Recommended/Plan of Treatment Treatment Recommendations and Plan of Treatment: --Opioid use disorder severe CBT Psychoeducation Clonidine Neurontin 300 mg PO BID --Major depressive 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
--- NOTE | 2017-03-20 16:40 | CP.PCM.PN ---
<Travon Nicole - Last Filed: 03/20/17 19:25> Subjective - Date & Time of Evaluation Date of Evaluation: 03/20/17 Time of Evaluation: 09:45 - Subjective Subjective: PGY [address] Martinez Patient seen and examined this morning at bedside. Patient states that she is experiencing a lot of pain and wishes to have more pain medicine. She states that she was unable to sleep last night because of the pain. Discussed with patient that we do not want to increase her dose of dilaudid due to the possibility it can worsen the effects on GI discomfort. When posed with the thought of other medications, patient states, "I've had this problem for a long time and none of the other medications work. Only dilaudid." Patient states that she is itchy and would like some Benadryl. PGY1 was present during a BP reading of 190/116. Nurse soon called to inform PGY1 that patient refused all BP medications until she got Benadryl and more pain medication. During rounds with attending physician, Dr. Herman Martinez, patient refused to speak to attending. Patient instructed him and the residents to leave her room immediately. Dr. Martinez attempted to speak to the patient but she quickly instructed him to leave again and refused to be examined. Objective - Vital Signs/Intake and Output Vital Signs (last 24 hours): Temp Pulse Resp BP Pulse Ox 98.6 F 83 18 204/120 H 100 03/19/17 20:00 03/20/17 03:35 03/19/17 20:00 03/19/17 20:00 03/19/17 17:05 Intake and Output: 03/20/17 03/20/17 06:59 18:59 Intake Total 300 Balance 300 - Medications Medications: Current Medications Calcium Acetate (Phoslo) 667 mg PO TIDCC [facility] Last Admin: 03/20/17 08:35 Dose: Not Given Clonidine HCl (Catapres-Tts3 0.3 Mg/24 Hr) 1 patch TD Q7D@1000 [facility] Last Admin: 03/19/17 10:30 Dose: Not Given Docusate Sodium (Colace) 100 mg PO TID [facility] Last Admin: 03/20/17 10:29 Dose: Not Given Heparin Sodium (Porcine) (Heparin) 5,000 units SC Q12 [facility] Last Admin: 03/20/17 10:29 Dose: Not Given Hydromorphone HCl (Dilaudid) 1 mg IVP Q4H PRN PRN Reason: Pain, severe (8-10) Last Admin: 03/20/17 10:29 Dose: 1 mg Hydroxyzine HCl (Atarax) 25 mg PO Q6 PRN PRN Reason: Agitation Insulin Detemir (Levemir) 12 unit SC Q12 [facility] Last Admin: 03/20/17 10:29 Dose: Not Given Insulin Human Regular (Novolin R) 0 unit SC ACHS [facility] PRN Reason: Protocol Last Admin: 03/20/17 13:42 Dose: 4 unit Metoclopramide HCl (Reglan) 10 mg IVP Q6H PRN PRN Reason: Nausea/Vomiting 2ND LINE Mirtazapine (Remeron) 15 mg PO HS [facility] Nifedipine (Procardia Xl) 60 mg PO BID [facility] Last Admin: 03/20/17 10:55 Dose: 60 mg Ondansetron HCl (Zofran Inj) 4 mg IVP Q6H PRN PRN Reason: Nausea/Vomiting 1ST LINE Pantoprazole Sodium (Protonix Ec Tab) 40 mg PO DAILY [facility] Last Admin: 03/20/17 10:29 Dose: Not Given Sertraline HCl (Zoloft) 50 mg PO DAILY [facility] Trazodone HCl (Desyrel) 50 mg PO HS [facility] - Labs Labs: 03/20/17 11:18 03/20/17 11:18 PT 12.2 SECONDS (9.7-12.2) 03/19/17 06:49 INR 1.1 03/19/17 06:49 APTT 29 SECONDS (21-34) 03/19/17 06:49 - Constitutional Appears: Non-toxic, No Acute Distress - Head Exam Head Exam: ATRAUMATIC, NORMOCEPHALIC - ENT Exam ENT Exam: Mucous Membranes Moist - Respiratory Exam Respiratory Exam: Clear to Ausculation Bilateral, NORMAL BREATHING PATTERN. absent: Accessory Muscle Use, Wheezes, Respiratory Distress - Cardiovascular Exam Cardiovascular Exam: REGULAR RHYTHM, +S1, +S2 Additional comments: Patient refused to be on tele - GI/Abdominal Exam GI & Abdominal Exam: Soft, Normal Bowel Sounds. absent: Distended, Firm, Guarding, Rigid, Tenderness - Extremities Exam Extremities Exam: absent: Calf Tenderness, Pedal Edema - Neurological Exam Neurological Exam: Alert, Awake, Normal Gait, Oriented x3 - Psychiatric Exam Psychiatric exam: Agitated. absent: Homicidal Ideation, Suicidal Ideation - Skin Skin Exam: Dry, Normal Color, Warm Assessment and Plan - Assessment and Plan (Free Text) Plan: ESRD on HD- MWF Fluid overloaded Consult: Dr. Teague (help appreciated) History of diabetic gastroparesis Accuchecks QAC&HS Novolog ISS Levemir 12 units SQ Q12H History of osteomyelitis of left clavicle Clarification: patient finished antibiotic therapy Finished Daptomycin at [facility] on 02/11/17 Recently admitted at [facility] and discharged with Vancomycin 750 mg M,W, after HD -->confirmed with ID Patient missed dose on Sunday. Last received on Sunday. So 1 time dose given today in the evening after HD per discussion with ID Opioid Dependence; Drug seeking behavior (per EMR) Zofran 4 mg IV Q6 PRN Reglan 10 mg IV Q6 PRN Hx of requesting Diluadid 3mg IVP Q3H Pt was given Diluadid 1mg Q4 PRN for pain and requested an increase, became agitated and upset when request was denied. She refused all medications until her Diluadid was increased. Patient requested Benadryl for itching, request was denied due to cross reaction with Dilaudid. Patient will not get additional dosing; needs to follow-up with pain management Hx of hypertensive cardiomyopathy KAMRAN 03/02/17: No evidence of endocarditis. LVEF WNL. Cardiac Catheterization on prior admission revealed patent coronaries; hypertensive cardiomyopahy EF: 45 Clonidine 0.3 mg PO TID Procardia XL 60 mg PO Q12H Prophylactic Measure Heparin 5000 units SQ Q12H Pepcid 20 mg IV daily Patient refused to talk and be examined by Dr. Martinez because of her encounter yesterday in which Dr. Martinez refused her request for an increase in pain medication. Patient states she will not take any medications other than dilaudid until she gets an increase, even though her blood pressure has been increasing. Psychology was consulted, Dr. Seals, for drug seeking behavior and behavior detrimental to herself. Dr. Martinez and PGY1 believe she is a danger to herself. Continue 1 to 1. Medicine Ethics Committee will be notified due to continued, repeat events with patient in which she refuses treatment unless she gets an increase in pain medication. Case discussed with Dr. Michelle Nicole PGY1 <Herman Martinez H - Last Filed: 03/21/17 07:31> Objective - Vital Signs/Intake and Output Vital Signs (last 24 hours): Temp Pulse Resp BP Pulse Ox 97.8 F 104 H 20 136/81 98 03/20/17 23:33 03/20/17 23:33 03/20/17 23:33 03/20/17 23:33 03/20/17 23:33 Intake and Output: 03/21/17 03/21/17 06:59 18:59 Intake Total 240 Balance 240 - Medications Medications: Current Medications Calcium Acetate (Phoslo) 667 mg PO TIDCC [facility] Last Admin: 03/20/17 16:59 Dose: 667 mg Clonidine HCl (Catapres-Tts3 0.3 Mg/24 Hr) 1 patch TD Q7D@1000 [facility] Last Admin: 03/19/17 10:30 Dose: Not Given Docusate Sodium (Colace) 100 mg PO TID [facility] Last Admin: 03/20/17 17:45 Dose: 100 mg Heparin Sodium (Porcine) (Heparin) 5,000 units SC Q12 [facility] Last Admin: 03/20/17 21:41 Dose: Not Given Hydromorphone HCl (Dilaudid) 1 mg IVP Q4H PRN PRN Reason: Pain, severe (8-10) Last Admin: 03/21/17 05:52 Dose: 1 mg Hydroxyzine HCl (Atarax) 25 mg PO Q6 PRN PRN Reason: Agitation Insulin Detemir (Levemir) 12 unit SC Q12 [facility] Last Admin: 03/20/17 21:45 Dose: 12 unit Insulin Human Regular (Novolin R) 0 unit SC ACHS [facility] PRN Reason: Protocol Last Admin: 03/20/17 21:44 Dose: 4 unit Metoclopramide HCl (Reglan) 10 mg IVP Q6H PRN PRN Reason: Nausea/Vomiting 2ND LINE Last Admin: 03/20/17 16:58 Dose: 10 mg Mirtazapine (Remeron) 15 mg PO HS [facility] Last Admin: 03/20/17 23:27 Dose: 15 mg Nifedipine (Procardia Xl) 60 mg PO BID [facility] Last Admin: 03/20/17 17:43 Dose: 60 mg Ondansetron HCl (Zofran Inj) 4 mg IVP Q6H PRN PRN Reason: Nausea/Vomiting 1ST LINE Pantoprazole Sodium (Protonix Ec Tab) 40 mg PO DAILY [facility] Last Admin: 03/20/17 10:29 Dose: Not Given Sertraline HCl (Zoloft) 50 mg PO DAILY [facility] Trazodone HCl (Desyrel) 50 mg PO HS [facility] Last Admin: 03/20/17 21:45 Dose: 50 mg - Labs Labs: 03/20/17 11:18 03/20/17 11:18 PT 12.2 SECONDS (9.7-12.2) 03/19/17 06:49 INR 1.1 03/19/17 06:49 APTT 29 SECONDS (21-34) 03/19/17 06:49 Attending/Attestation - Attestation I have personally seen and examined this patient.: Yes I have fully participated in the care of the patient.: Yes I have reviewed all pertinent clinical information, including history, physical exam and plan: Yes Notes (Text): Medical attending: We attempted to see and examined the patient however she asked me to leave the room. At this time were pending on further advice from psychiatry as well as to get a medical ethics committee to review the patient's case. However from what I understand the chair person who runs the ethics committee is currently not available this week and will return next week so in the meantime the patient is still on IV Dilaudid will see if we could decrease this amount tomorrow. In the meantime the patient is still on one-to-one observation Thank you very much, Herman Martinez
--- NOTE | 2017-03-20 18:46 | CP.PCM.CON ---
History of Present Illness - History of Present Illness History of Present Illness: REASONS FOR CONSULT : ESRD ON HD M W F AND SAT ANEMIA OF CKD .. HGB 9.8 PT WAS SEEN YESTERDAY BY ME ON RENAL CONSULT .. ALSO WAS SEEN ON HD PT IS BIENG SEEN TODAY PT HAS MULTIPLE MED PROBLEMS .. SHE HAS FREQUENT ADMISSIONS 31 F with PMHx gastroparesis, diabetes, hypertension, ESRD (HD MWF), [place] in 2004 , chronic opiate dependance who came in with complaint of SOB and abdominal pain. Patient had severe intractable abdominal pain starting on Sunday. The pain is diffuse and rated as a 10/10. Patient is unable to describe the quality of the pain but admits that it is similar to previous bouts of abdominal pain. Abdominal pain is unrelated to meals. There is no change in stool frequency or consistency. Patient denied constipation or diarrhea.Patient also complained of chest pain during hemodialysis. Patient states that her baseline Systolic BP is in the 200s. Patient has been on Vancomycin as an outpatient for osteomyelitis. Per note from previous admission, Dr. Pinto specified that the patient should be on Vancomycin for 4-6 weeks. Patient has been going to Dialysis at [address] She was receiving Vancomycin after dialysis sessions M,W,F. Patient did not want us to examine her or take care of her. She stated if we do not give her pain medications, she would prefer if we did not take care of her at all. We expressed our concerns, explaining to her about her frequent admissions and requesting of Dilaudid. Hospitalist service apologized for the inconvenience, however, we talked about different options for pain management. Patient began to become irritated and did not want to talk to us any further. PMHx: Gastroparesis, DM, HTN, ESRD (HD MWF), [place] in 2004, chronic opiate dependence PSHx: exploratory laparatomy in 2005 and 2009 for adhesions. Cholecystecomy in 2009. L arm AVF 2014, I&D right foot abscess Meds: As per OCT Allergies: Toradol, Latex, Morphine, Tramadol Social: Denied illicit drug use, alcohol, tobacco. Family Hx: Mother with DM. Unspecified history of cancer on mom's side of family. Past Patient History - Infectious Disease Hx of Infectious Diseases: None - Tetanus Immunizations Tetanus Immunization: Unknown - Past Medical History & Family History Past Medical History?: Yes - Past Social History Smoking Status: Never Smoked - CARDIAC Hx Cardiac Disorders: Yes Hx Congestive Heart Failure: Yes ([place]) Hx Hypercholesterolemia: Yes Hx Hypertension: Yes Hx Peripheral Edema: Yes - PULMONARY Hx Respiratory Disorders: No - NEUROLOGICAL Hx Neurological Disorder: Yes Hx Seizures: Yes - HEENT Hx HEENT Problems: Yes Hx Cataracts: Yes Hx Glaucoma: Yes - RENAL Hx Chronic Kidney Disease: Yes Date of Last Dialysis Treatment: 03/19/17 Hx Kidney Stones: Yes - ENDOCRINE/METABOLIC Hx Endocrine Disorders: Yes Hx Hyperthyroidism: Yes Hx Hypothyroidism: Yes - HEMATOLOGICAL/ONCOLOGICAL Hx Blood Disorders: Yes Hx Anemia: Yes - INTEGUMENTARY Hx Dermatological Problems: Yes Other/Comment: DRY ITCHY SKIN ;multiple/generalized dark spots on skin - MUSCULOSKELETAL/RHEUMATOLOGICAL Hx Musculoskeletal Disorders: Yes Hx Falls: No Hx Fractures: Yes (Sep 2012 L foot) - GASTROINTESTINAL Hx Gastrointestinal Disorders: Yes Hx Gall Bladder Disease: Yes (gallbladder removed) Hx Gastritis: Yes Hx Pancreatitis: Yes (chronic) - GENITOURINARY/GYNECOLOGICAL Hx Genitourinary Disorders: No - PSYCHIATRIC Hx Psychophysiologic Disorder: Yes Hx Anxiety: Yes Hx Substance Use: No - SURGICAL HISTORY Hx Surgeries: Yes Hx Cholecystectomy: Yes Hx Coronary Stent: Yes - ANESTHESIA Hx Anesthesia: Yes Hx Anesthesia Reactions: No Hx Malignant Hyperthermia: No Has any member of the family had a problem w/ anesthesia?: No Meds Allergies/Adverse Reactions: Allergies Allergy/AdvReac Type Severity Reaction Status Date / Time ketorolac tromethamine Allergy RASH Verified 03/19/17 05:51 [From Toradol] latex Allergy RASH Verified 03/19/17 05:51 morphine Allergy RASH Verified 03/19/17 05:51 tramadol Allergy RASH Verified 03/19/17 05:51 - Medications Medications: Current Medications Calcium Acetate (Phoslo) 667 mg PO TIDCC [facility] Last Admin: 03/20/17 16:59 Dose: 667 mg Clonidine HCl (Catapres-Tts3 0.3 Mg/24 Hr) 1 patch TD Q7D@1000 [facility] Last Admin: 03/19/17 10:30 Dose: Not Given Docusate Sodium (Colace) 100 mg PO TID [facility] Last Admin: 03/20/17 17:45 Dose: 100 mg Heparin Sodium (Porcine) (Heparin) 5,000 units SC Q12 [facility] Last Admin: 03/20/17 10:29 Dose: Not Given Hydromorphone HCl (Dilaudid) 1 mg IVP Q4H PRN PRN Reason: Pain, severe (8-10) Last Admin: 03/20/17 16:58 Dose: 1 mg Hydroxyzine HCl (Atarax) 25 mg PO Q6 PRN PRN Reason: Agitation Insulin Detemir (Levemir) 12 unit SC Q12 [facility] Last Admin: 03/20/17 10:29 Dose: Not Given Insulin Human Regular (Novolin R) 0 unit SC ACHS [facility] PRN Reason: Protocol Last Admin: 03/20/17 17:44 Dose: 6 unit Metoclopramide HCl (Reglan) 10 mg IVP Q6H PRN PRN Reason: Nausea/Vomiting 2ND LINE Last Admin: 03/20/17 16:58 Dose: 10 mg Mirtazapine (Remeron) 15 mg PO HS [facility] Nifedipine (Procardia Xl) 60 mg PO BID [facility] Last Admin: 03/20/17 17:43 Dose: 60 mg Ondansetron HCl (Zofran Inj) 4 mg IVP Q6H PRN PRN Reason: Nausea/Vomiting 1ST LINE Pantoprazole Sodium (Protonix Ec Tab) 40 mg PO DAILY [facility] Last Admin: 03/20/17 10:29 Dose: Not Given Sertraline HCl (Zoloft) 50 mg PO DAILY [facility] Trazodone HCl (Desyrel) 50 mg PO HS [facility] Results - Vital Signs Recent Vital Signs: Last Vital Signs Temp 97.8 F 03/20/17 16:50 Pulse 89 03/20/17 16:50 Resp 20 03/20/17 16:50 BP 188/111 H 03/20/17 16:50 Pulse Ox 99 03/20/17 16:50 - Labs Result Diagrams: 03/20/17 11:18 03/20/17 11:18 Labs: Laboratory Results - last 24 hr 03/19/17 03/20/17 03/20/17 21:26 03:21 03:47 WBC RBC Hgb Hct MCV MCH MCHC RDW Plt Count MPV Neut % (Auto) Lymph % (Auto) [place] % (Auto) Eos % (Auto) Baso % (Auto) Neut # Lymph # [place] # Eos # Baso # Sodium Potassium Chloride Carbon Dioxide Anion Gap BUN Creatinine Est GFR ( Amer) Est GFR (Non-Af Amer) POC Glucose (mg/dL) 426 H* 60 L 95 Random Glucose Calcium Phosphorus Magnesium Total Bilirubin AST ALT Alkaline Phosphatase Total Protein Albumin Globulin Albumin/Globulin Ratio 03/20/17 03/20/17 03/20/17 06:52 11:18 11:18 WBC 8.6 RBC 3.12 L Hgb 9.8 L Hct 29.6 L MCV 94.7 MCH 31.3 H MCHC 33.1 RDW 15.2 H Plt Count 224 MPV 9.5 Neut % (Auto) 61.7 Lymph % (Auto) 16.5 L [place] % (Auto) 4.2 Eos % (Auto) 16.1 H Baso % (Auto) 1.5 Neut # 5.3 Lymph # 1.4 [place] # 0.4 Eos # 1.4 H Baso # 0.1 Sodium 135 Potassium 5.3 H Chloride 89 L Carbon Dioxide 27 Anion Gap 24 H BUN 56 H Creatinine 6.4 H Est GFR ( Amer) 9 Est GFR (Non-Af Amer) 8 POC Glucose (mg/dL) 110 Random Glucose 197 H Calcium 7.0 L Phosphorus 6.8 H Magnesium 1.9 Total Bilirubin 0.8 AST 29 ALT 23 Alkaline Phosphatase 164 H Total Protein 7.9 Albumin 3.9 Globulin 4.0 H Albumin/Globulin Ratio 1.0 03/20/17 03/20/17 12:13 16:39 WBC RBC Hgb Hct MCV MCH MCHC RDW Plt Count MPV Neut % (Auto) Lymph % (Auto) [place] % (Auto) Eos % (Auto) Baso % (Auto) Neut # Lymph # [place] # Eos # Baso # Sodium Potassium Chloride Carbon Dioxide Anion Gap BUN Creatinine Est GFR ( Amer) Est GFR (Non-Af Amer) POC Glucose (mg/dL) 276 H 310 H Random Glucose Calcium Phosphorus Magnesium Total Bilirubin AST ALT Alkaline Phosphatase Total Protein Albumin Globulin Albumin/Globulin Ratio Assessment & Plan - Assessment and Plan (Free Text) Assessment: ESRD ON HD M W F AND SAT ANEMIA OF CKD .. ON EPO MULTIPLE CO MORBEDETIES . P : WILL CONTINUE HD AN IN PT C/O CURRENT CARE WILL F/U CLOSELY - Date & Time Date: 03/20/17 Time: 16:00
[2017-03-21] MEDS: (Novolin R) Insulin Human Regular 100 units/ml vial SC SCH ×4 (07:57→21:48)
[2017-03-21] MEDS ORDERED: VANCOMYCIN 750 MG IVPB SCH (09:00)
[2017-03-21] MEDS: Pantoprazole 40 mg EC Tab PO SCH (10:30)
[2017-03-21] MEDS: Insulin Detemir 100 units/ml Vial (Levemir) SC SCH ×2 (10:30→21:48)
[2017-03-21 10:47] LABS: BASO # 0.1 K/uL (0.0-0.2); BASO % 0.9 % (0.0-2.0); EOS # 0.7 K/uL (0.0-0.7); EOS % 6.5 % (0.0-4.0); HEMOGLOBIN 8.3 g/dL (11.0-16.0); LYMPH # 0.5 K/uL (1.0-4.3); LYMPH % 4.3 % (20.0-40.0); MEAN CELL VOLUME 94.5 fL (81.0-99.0); MEAN CORPUSCULAR HGB CONC 31.8 g/dL (33.0-37.0); MEAN PLATELET VOLUME 7.9 fL (7.2-11.7); MONO # 0.4 K/uL (0.0-0.8); MONO % 3.8 % (0.0-10.0); NEUT # 9.3 K/uL (1.8-7.0); NEUT % 84.5 % (50.0-75.0); PLATELET COUNT 266 K/uL (130-400); RBC 2.75 Mil/uL (3.80-5.20); RED CELL DISTRIBUTION WIDTH 14.9 % (11.5-14.5); WHITE BLOOD COUNT 11.1 K/uL (4.8-10.8)
[2017-03-21 10:56] LABS: ALB/GLOB RATIO 1.1 (1.0-2.1); ALBUMIN 3.8 g/dL (3.5-5.0); CALCIUM 6.3 mg/dl (8.6-10.4); MAGNESIUM 1.9 mg/dL (1.6-2.3)
[2017-03-21 11:11] LABS: ANISOCYTOSIS SLIGHT; BANDS 10 % (0-2); EOSINOPHIL 8 % (0-4); LYMPHOCYTE 7 % (20-40); MONOCYTE 3 % (0-10); NEUTROPHIL 72 % (50-75); PLATELET ESTIMATE NORMAL (NORMAL); TOTAL CELLS COUNTED 100
[2017-03-21] MEDS ORDERED: DiphenhydrAMINE 50 mg/ml Inj IVP STA (11:39)
[2017-03-21] MEDS: Piperacillin/Tazobact 2.25 GM in Sodium Chloride 100 ML IVPB SCH ×2 (14:25→21:48)
[2017-03-21] MEDS: NIFEdipine 60 mg ER Tab PO SCH ×2 (14:30→17:24)
--- NOTE | 2017-03-21 17:21 | CP.PCM.CON ---
History of Present Illness - History of Present Illness History of Present Illness: 31 y/o F PMH of HTN, ESRD on HD, [place], DM, c/b gastroperesis. Patient complaining of pain all over her body, unable to pinpoint one region that's bothering her the most. States arms, legs, abdomen all hurt. Feels nauseous. States she does not take any pain medication at home. States she does have paresthesias in her legs at times. No motor deficit. Denies chest pressure/pain , shortness of breath, denies symptoms of stroke. Past Patient History - Infectious Disease Hx of Infectious Diseases: None - Tetanus Immunizations Tetanus Immunization: Unknown - Past Medical History & Family History Past Medical History?: Yes - Past Social History Smoking Status: Never Smoked - CARDIAC Hx Cardiac Disorders: Yes Hx Congestive Heart Failure: Yes ([place]) Hx Hypercholesterolemia: Yes Hx Hypertension: Yes Hx Peripheral Edema: Yes - PULMONARY Hx Respiratory Disorders: No - NEUROLOGICAL Hx Neurological Disorder: Yes Hx Seizures: Yes - HEENT Hx HEENT Problems: Yes Hx Cataracts: Yes Hx Glaucoma: Yes - RENAL Hx Chronic Kidney Disease: Yes Date of Last Dialysis Treatment: 03/19/17 Hx Kidney Stones: Yes - ENDOCRINE/METABOLIC Hx Endocrine Disorders: Yes Hx Hyperthyroidism: Yes Hx Hypothyroidism: Yes - HEMATOLOGICAL/ONCOLOGICAL Hx Blood Disorders: Yes Hx Anemia: Yes - INTEGUMENTARY Hx Dermatological Problems: Yes Other/Comment: DRY ITCHY SKIN ;multiple/generalized dark spots on skin - MUSCULOSKELETAL/RHEUMATOLOGICAL Hx Musculoskeletal Disorders: Yes Hx Falls: No Hx Fractures: Yes (Sep 2012 L foot) - GASTROINTESTINAL Hx Gastrointestinal Disorders: Yes Hx Gall Bladder Disease: Yes (gallbladder removed) Hx Gastritis: Yes Hx Pancreatitis: Yes (chronic) - GENITOURINARY/GYNECOLOGICAL Hx Genitourinary Disorders: No - PSYCHIATRIC Hx Psychophysiologic Disorder: Yes Hx Anxiety: Yes Hx Substance Use: No - SURGICAL HISTORY Hx Surgeries: Yes Hx Cholecystectomy: Yes Hx Coronary Stent: Yes - ANESTHESIA Hx Anesthesia: Yes Hx Anesthesia Reactions: No Hx Malignant Hyperthermia: No Has any member of the family had a problem w/ anesthesia?: No Meds Allergies/Adverse Reactions: Allergies Allergy/AdvReac Type Severity Reaction Status Date / Time ketorolac tromethamine Allergy RASH Verified 03/19/17 05:51 [From Toradol] latex Allergy RASH Verified 03/19/17 05:51 morphine Allergy RASH Verified 03/19/17 05:51 tramadol Allergy RASH Verified 03/19/17 05:51 - Medications Medications: Current Medications Calcium Acetate (Phoslo) 667 mg PO [facility] Last Admin: 03/21/17 14:30 Dose: Not Given Clonidine HCl (Catapres-Tts3 0.3 Mg/24 Hr) 1 patch TD Q7D@1000 [facility] Last Admin: 03/19/17 10:30 Dose: Not Given Docusate Sodium (Colace) 100 mg PO TID [facility] Last Admin: 03/21/17 14:30 Dose: Not Given Heparin Sodium (Porcine) (Heparin) 5,000 units SC Q12 [facility] Last Admin: 03/21/17 10:30 Dose: Not Given Hydromorphone HCl (Dilaudid) 0.75 mg IVP Q4H PRN PRN Reason: Pain, severe (8-10) Hydroxyzine HCl (Atarax) 25 mg PO Q6 PRN PRN Reason: Agitation Piperacillin Sod/Tazobactam (Sod 2.25 gm/ Sodium Chloride) 100 mls @ 200 mls/ hr IVPB Q8H [facility] Last Admin: 03/21/17 14:25 Dose: 200 mls/hr Insulin Detemir (Levemir) 12 unit SC Q12 [facility] Last Admin: 03/21/17 10:30 Dose: Not Given Insulin Human Regular (Novolin R) 0 unit SC ACHS [facility] PRN Reason: Protocol Last Admin: 03/21/17 14:30 Dose: Not Given Metoclopramide HCl (Reglan) 10 mg IVP Q6H PRN PRN Reason: Nausea/Vomiting 2ND LINE Last Admin: 03/20/17 16:58 Dose: 10 mg Mirtazapine (Remeron) 15 mg PO HS [facility] Last Admin: 03/20/17 23:27 Dose: 15 mg Nifedipine (Procardia Xl) 60 mg PO BID [facility] Last Admin: 03/21/17 14:30 Dose: Not Given Ondansetron HCl (Zofran Inj) 4 mg IVP Q6H PRN PRN Reason: Nausea/Vomiting 1ST LINE Pantoprazole Sodium (Protonix Ec Tab) 40 mg PO DAILY [facility] Last Admin: 03/21/17 10:30 Dose: Not Given Sertraline HCl (Zoloft) 50 mg PO DAILY [facility] Last Admin: 03/21/17 10:30 Dose: Not Given Trazodone HCl (Desyrel) 50 mg PO HS [facility] Last Admin: 03/20/17 21:45 Dose: 50 mg Physical Exam - Respiratory Exam Additional comments: clear bilaterally - Cardiovascular Exam Additional comments: S1 S2 - GI/Abdominal Exam GI & Abdominal Exam: Soft Additional comments: soft, no rebound tenderness - Extremities Exam Additional comments: warm, well perfused - Neurological Exam Additional comments: Deferred exam Results - Vital Signs Recent Vital Signs: Last Vital Signs Temp 978 F H 03/21/17 09:45 Pulse 111 H 03/21/17 09:45 Resp 18 03/21/17 12:45 BP 196/77 H 03/21/17 12:45 Pulse Ox 98 03/21/17 12:45 - Labs Result Diagrams: 03/21/17 10:35 03/21/17 10:35 Labs: Laboratory Results - last 24 hr 03/20/17 03/21/17 03/21/17 21:09 06:26 06:45 WBC RBC Hgb Hct MCV MCH MCHC RDW Plt Count MPV Neut % (Auto) Lymph % (Auto) Smith % (Auto) Eos % (Auto) Baso % (Auto) Neut # Lymph # Smith # Eos # Baso # Neutrophils % (Manual) Band Neutrophils % Lymphocytes % (Manual) Monocytes % (Manual) Eosinophils % (Manual) Platelet Estimate Anisocytosis (manual) Sodium Potassium Chloride Carbon Dioxide Anion Gap BUN Creatinine Est GFR ( Amer) Est GFR (Non-Af Amer) POC Glucose (mg/dL) 409 H* 68 90 Random Glucose Calcium Phosphorus Magnesium Total Bilirubin AST ALT Alkaline Phosphatase Total Protein Albumin Globulin Albumin/Globulin Ratio 03/21/17 03/21/17 03/21/17 10:35 10:35 11:34 WBC 11.1 H RBC 2.75 L Hgb 8.3 L Hct 26.0 L MCV 94.5 MCH 30.0 MCHC 31.8 L RDW 14.9 H Plt Count 266 MPV 7.9 Neut % (Auto) 84.5 H Lymph % (Auto) 4.3 L Smith % (Auto) 3.8 Eos % (Auto) 6.5 H Baso % (Auto) 0.9 Neut # 9.3 H Lymph # 0.5 L Smith # 0.4 Eos # 0.7 Baso # 0.1 Neutrophils % (Manual) 72 Band Neutrophils % 10 H Lymphocytes % (Manual) 7 L Monocytes % (Manual) 3 Eosinophils % (Manual) 8 H Platelet Estimate Normal Anisocytosis (manual) Slight Sodium 135 Potassium 4.7 Chloride 93 L Carbon Dioxide 25 Anion Gap 22 H BUN 62 H Creatinine 6.3 H Est GFR ( Amer) 9 Est GFR (Non-Af Amer) 8 POC Glucose (mg/dL) 159 H Random Glucose 146 H Calcium 6.3 L Phosphorus 6.2 H Magnesium 1.9 Total Bilirubin 0.6 AST 23 ALT 26 Alkaline Phosphatase 156 H Total Protein 7.3 Albumin 3.8 Globulin 3.4 Albumin/Globulin Ratio 1.1 03/21/17 16:57 WBC RBC Hgb Hct MCV MCH MCHC RDW Plt Count MPV Neut % (Auto) Lymph % (Auto) Smith % (Auto) Eos % (Auto) Baso % (Auto) Neut # Lymph # Smith # Eos # Baso # Neutrophils % (Manual) Band Neutrophils % Lymphocytes % (Manual) Monocytes % (Manual) Eosinophils % (Manual) Platelet Estimate Anisocytosis (manual) Sodium Potassium Chloride Carbon Dioxide Anion Gap BUN Creatinine Est GFR ( Amer) Est GFR (Non-Af Amer) POC Glucose (mg/dL) 286 H Random Glucose Calcium Phosphorus Magnesium Total Bilirubin AST ALT Alkaline Phosphatase Total Protein Albumin Globulin Albumin/Globulin Ratio Assessment & Plan - Assessment and Plan (Free Text) Assessment: 31 y/o F HTN, h/o [place], DM c/b gastroperesis, complaining of pain all over her body. She does have a neuropathic component to her pain as she states there is tingling in her legs at times. If acute abdominal processes have been ruled out her abdominal pain could be secondary to autonomic pain from her DM and her complaint of nausea would fit this as well. I agree with psych managment of treating her pain with anti-depressants, especially given compaints of total body pain, and also treating her neuropathic pain with gabapentin. I tried to explain the process of her autonomic pain and that narcotics would not help this pain and at this point she told me to leave the room immediately. -glucose control -would try gabapentin HD dose of 100mg/day and supplemental dose 100mg after HD -continue with psych recommendations -please contact us with any questions
--- NOTE | 2017-03-21 17:50 | CP.PCM.PN ---
<Travon Nicole - Last Filed: 03/21/17 17:56> Subjective - Date & Time of Evaluation Date of Evaluation: 03/21/17 Time of Evaluation: 15:00 - Subjective Subjective: PGY1 for Dr. Martinez Patient seen and examined this afternoon at bedside. Patient is recently finished HD. Patient states that she vomited 4 or 5 times during dialysis. She states that there was bright red blood in her vomit. Nurse took an oral temperature at bedside and showed a fever of 103. Patient states that her pain is uncontrolled and that she needs more pain medicine. Patient states that she feels very fatigued. Objective - Vital Signs/Intake and Output Vital Signs (last 24 hours): Temp Pulse Resp BP Pulse Ox 99.8 F H 120 H 20 168/84 H 95 03/21/17 15:00 03/21/17 15:00 03/21/17 15:00 03/21/17 15:00 03/21/17 15:00 Intake and Output: 03/21/17 03/21/17 06:59 18:59 Intake Total 240 Balance 240 - Medications Medications: Current Medications Calcium Acetate (Phoslo) 667 mg PO TIDCC [facility] Last Admin: 03/21/17 17:24 Dose: 667 mg Clonidine HCl (Catapres-Tts3 0.3 Mg/24 Hr) 1 patch TD Q7D@1000 [facility] Last Admin: 03/19/17 10:30 Dose: Not Given Docusate Sodium (Colace) 100 mg PO TID [facility] Last Admin: 03/21/17 17:24 Dose: 100 mg Heparin Sodium (Porcine) (Heparin) 5,000 units SC Q12 [facility] Last Admin: 03/21/17 10:30 Dose: Not Given Hydromorphone HCl (Dilaudid) 0.75 mg IVP Q4H PRN PRN Reason: Pain, severe (8-10) Last Admin: 03/21/17 17:24 Dose: 0.75 mg Hydroxyzine HCl (Atarax) 25 mg PO Q6 PRN PRN Reason: Agitation Piperacillin Sod/Tazobactam (Sod 2.25 gm/ Sodium Chloride) 100 mls @ 200 mls/ hr IVPB Q8H [facility] Last Admin: 03/21/17 14:25 Dose: 200 mls/hr Insulin Detemir (Levemir) 12 unit SC Q12 [facility] Last Admin: 03/21/17 10:30 Dose: Not Given Insulin Human Regular (Novolin R) 0 unit SC ACHS [facility] PRN Reason: Protocol Last Admin: 03/21/17 17:24 Dose: 4 unit Metoclopramide HCl (Reglan) 10 mg IVP Q6H PRN PRN Reason: Nausea/Vomiting 2ND LINE Last Admin: 03/20/17 16:58 Dose: 10 mg Mirtazapine (Remeron) 15 mg PO [facility] Last Admin: 03/20/17 23:27 Dose: 15 mg Nifedipine (Procardia Xl) 60 mg PO BID [facility] Last Admin: 03/21/17 17:24 Dose: 60 mg Ondansetron HCl (Zofran Inj) 4 mg IVP Q6H PRN PRN Reason: Nausea/Vomiting 1ST LINE Pantoprazole Sodium (Protonix Ec Tab) 40 mg PO DAILY [facility] Last Admin: 03/21/17 10:30 Dose: Not Given Sertraline HCl (Zoloft) 50 mg PO DAILY [facility] Last Admin: 03/21/17 10:30 Dose: Not Given Trazodone HCl (Desyrel) 50 mg PO [facility] Last Admin: 03/20/17 21:45 Dose: 50 mg - Labs Labs: 03/21/17 10:35 03/21/17 10:35 PT 12.2 SECONDS (9.7-12.2) 03/19/17 06:49 INR 1.1 03/19/17 06:49 APTT 29 SECONDS (21-34) 03/19/17 06:49 - Constitutional Appears: No Acute Distress (standing next to bed) - ENT Exam ENT Exam: Mucous Membranes Moist - Respiratory Exam Respiratory Exam: Clear to Ausculation Bilateral, NORMAL BREATHING PATTERN. absent: Accessory Muscle Use, Wheezes, Respiratory Distress - Cardiovascular Exam Cardiovascular Exam: REGULAR RHYTHM, +S1, +S2 - GI/Abdominal Exam GI & Abdominal Exam: Soft, Hypoactive Bowel Sounds. absent: Distended, Firm, Guarding, Rigid, Tenderness - Extremities Exam Extremities Exam: absent: Calf Tenderness, Pedal Edema - Neurological Exam Neurological Exam: Alert, Awake, Oriented x3 - Psychiatric Exam Psychiatric exam: Depressed - Skin Skin Exam: Dry, Normal Color, Warm Assessment and Plan - Assessment and Plan (Free Text) Plan: ESRD on HD- MWF Fluid overloaded Consult: Dr. Teague (help appreciated) Fever Patient had oral temp of 103 degrees. F/U blood cultures x 2 Started on Zosyn 2.25mg IVPB Q8H - renal dosing History of diabetic gastroparesis Accuchecks QAC&HS Novolog ISS Levemir 12 units SQ Q12H History of osteomyelitis of left clavicle Clarification: patient finished antibiotic therapy Finished Daptomycin at [facility] on 02/11/17 Recently admitted at [facility] and discharged with Vancomycin 750 mg M,, after HD -->confirmed with ID Patient missed dose on Sunday. Last received on Sunday. So 1 time dose given today in the evening after HD per discussion with ID Opioid Dependence; Drug seeking behavior (per EMR) Zofran 4 mg IV Q6 PRN Reglan 10 mg IV Q6 PRN Hx of requesting Diluadid 3mg IVP Q3H Diluadid 1mg Q4 PRN for pain decreased to Diluadid 0.75mg Q4H PRN and will plan to continue to lower during stay. Pain Management Consulted (Dr. Robert - Anesthesia) - PGY1 spoke Dr. Robert. Dr. Robert believes the patient shows signs of addiction and recommends no Diluadid should be used for pain. Discussed that we are currently treating with 0.75mg Q4H and are currently weening down. Dr. Robert agreed. Hx of hypertensive cardiomyopathy KAMRAN 03/02/17: No evidence of endocarditis. LVEF WNL. Cardiac Catheterization on prior admission revealed patent coronaries; hypertensive cardiomyopahy EF: 45 Clonidine 0.3 mg PO TID Procardia XL 60 mg PO Q12H Prophylactic Measure Heparin 5000 units SQ Q12H Pepcid 20 mg IV daily Case discussed with Dr. Michelle Cool Corey PGY1 <Herman Martinez H - Last Filed: 03/22/17 07:29> Objective - Vital Signs/Intake and Output Vital Signs (last 24 hours): Temp Pulse Resp BP Pulse Ox 98.6 F 100 H 20 135/79 100 03/21/17 23:34 03/21/17 23:34 03/21/17 23:34 03/21/17 23:34 03/21/17 23:34 - Medications Medications: Current Medications Calcium Acetate (Phoslo) 667 mg PO TIDCC [facility] Last Admin: 03/21/17 17:24 Dose: 667 mg Clonidine HCl (Catapres-Tts3 0.3 Mg/24 Hr) 1 patch TD Q7D@1000 [facility] Last Admin: 03/19/17 10:30 Dose: Not Given Docusate Sodium (Colace) 100 mg PO TID [facility] Last Admin: 03/21/17 17:24 Dose: 100 mg Ergocalciferol (Drisdol 50,000 Intl Units Cap) 1 cap PO Q7D [facility] Last Admin: 03/22/17 01:12 Dose: 1 cap Heparin Sodium (Porcine) (Heparin) 5,000 units SC Q12 [facility] Last Admin: 03/21/17 21:48 Dose: Not Given Hydromorphone HCl (Dilaudid) 0.75 mg IVP Q4H PRN PRN Reason: Pain, severe (8-10) Last Admin: 03/22/17 06:41 Dose: 0.75 mg Hydroxyzine HCl (Atarax) 25 mg PO Q6 PRN PRN Reason: Agitation Last Admin: 03/22/17 05:01 Dose: 25 mg Piperacillin Sod/Tazobactam (Sod 2.25 gm/ Sodium Chloride) 100 mls @ 200 mls/ hr IVPB Q8H [facility] Last Admin: 03/22/17 05:01 Dose: 200 mls/hr Insulin Detemir (Levemir) 12 unit SC Q12 [facility] Last Admin: 03/21/17 21:48 Dose: 12 unit Insulin Human Regular (Novolin R) 0 unit SC ACHS [facility] PRN Reason: Protocol Last Admin: 03/21/17 21:48 Dose: 3 unit Metoclopramide HCl (Reglan) 10 mg IVP Q6H PRN PRN Reason: Nausea/Vomiting 2ND LINE Last Admin: 03/20/17 16:58 Dose: 10 mg Mirtazapine (Remeron) 15 mg PO HS [facility] Last Admin: 03/21/17 21:48 Dose: 15 mg Nifedipine (Procardia Xl) 60 mg PO BID [facility] Last Admin: 03/21/17 17:24 Dose: 60 mg Ondansetron HCl (Zofran Inj) 4 mg IVP Q6H PRN PRN Reason: Nausea/Vomiting 1ST LINE Last Admin: 03/22/17 02:39 Dose: 4 mg Pantoprazole Sodium (Protonix Ec Tab) 40 mg PO DAILY [facility] Last Admin: 03/21/17 10:30 Dose: Not Given Sertraline HCl (Zoloft) 50 mg PO DAILY [facility] Last Admin: 03/21/17 10:30 Dose: Not Given Sevelamer Carbonate (Renvela) 800 mg PO TIDCC [facility] Trazodone HCl (Desyrel) 50 mg PO HS [facility] Last Admin: 03/21/17 21:48 Dose: 50 mg - Labs Labs: 03/21/17 10:35 03/21/17 10:35 PT 12.2 SECONDS (9.7-12.2) 03/19/17 06:49 INR 1.1 03/19/17 06:49 APTT 29 SECONDS (21-34) 03/19/17 06:49 Attending/Attestation - Attestation I have personally seen and examined this patient.: No I have fully participated in the care of the patient.: Yes I have reviewed all pertinent clinical information, including history, physical exam and plan: Yes Notes (Text): Medical Attending: Please note I did not personally examin the patient today however I did review the case with the staff and medical residents. The dilaudid was decreased to 0.75, and my intentions are to decrease further tommorow or possibly discharge the patient. There was a fever noted, blood cultures taken and abx given as a precation. thank you Herman Martinez
[2017-03-22] MEDS ORDERED: Ergocalciferol 50,000 Intl Units Cap PO SCH (01:00)
[2017-03-22 01:24] VITALS: O2SAT 100
[2017-03-22] MEDS: Piperacillin/Tazobact 2.25 GM in Sodium Chloride 100 ML IVPB SCH ×3 (05:01→22:12)
[2017-03-22] MEDS: (Novolin R) Insulin Human Regular 100 units/ml vial SC SCH ×4 (08:00→22:36)
[2017-03-22] MEDS: NIFEdipine 60 mg ER Tab PO SCH ×2 (09:26→18:02)
[2017-03-22] MEDS: Insulin Detemir 100 units/ml Vial (Levemir) SC SCH ×2 (10:31→22:12)
[2017-03-22] MEDS: Pantoprazole 40 mg EC Tab PO SCH (10:31)
--- NOTE | 2017-03-22 13:27 | CP.PCM.PN ---
<Travon Nicole - Last Filed: 03/22/17 13:21> Subjective - Date & Time of Evaluation Date of Evaluation: 03/22/17 Time of Evaluation: 09:00 - Subjective Subjective: PGY1 Medicine Note for Dr. Martinez Patient seen and examined this morning at bedside. Upon walking in the room, the patient was standing next to her bed with her face on the mattress. The patient did not lift her head for the entire examination. The patient states that she has still been vomiting blood, the last time was at 0400 this morning. She states that her fever and chills have subsided but she is feeling pain all over and is experiencing generalized fatigue. Patient states that she has been taking all of her medicine today. Objective - Vital Signs/Intake and Output Vital Signs (last 24 hours): Temp Pulse Resp BP Pulse Ox 98.6 F 100 H 20 135/79 100 03/21/17 23:34 03/21/17 23:34 03/21/17 23:34 03/21/17 23:34 03/21/17 23:34 - Medications Medications: Current Medications Calcium Acetate (Phoslo) 667 mg PO TIDCC [facility] Last Admin: 03/22/17 12:46 Dose: Not Given Clonidine HCl (Catapres-Tts3 0.3 Mg/24 Hr) 1 patch TD Q7D@1000 [facility] Last Admin: 03/19/17 10:30 Dose: Not Given Docusate Sodium (Colace) 100 mg PO TID [facility] Last Admin: 03/22/17 09:08 Dose: Not Given Ergocalciferol (Drisdol 50,000 Intl Units Cap) 1 cap PO Q7D [facility] Last Admin: 03/22/17 01:12 Dose: 1 cap Gabapentin (Neurontin) 100 mg PO DAILY [facility] Heparin Sodium (Porcine) (Heparin) 5,000 units SC Q12 [facility] Last Admin: 03/22/17 09:09 Dose: Not Given Hydromorphone HCl (Dilaudid) 0.5 mg IVP Q4H PRN PRN Reason: Pain, severe (8-10) Hydroxyzine HCl (Atarax) 25 mg PO Q6 PRN PRN Reason: Agitation Last Admin: 03/22/17 05:01 Dose: 25 mg Piperacillin Sod/Tazobactam (Sod 2.25 gm/ Sodium Chloride) 100 mls @ 200 mls/ hr IVPB Q8H [facility] Last Admin: 03/22/17 05:01 Dose: 200 mls/hr Insulin Detemir (Levemir) 12 unit SC Q12 [facility] Last Admin: 03/22/17 10:31 Dose: 12 unit Insulin Human Regular (Novolin R) 0 unit SC ACHS [facility] PRN Reason: Protocol Last Admin: 03/22/17 12:00 Dose: Not Given Metoclopramide HCl (Reglan) 10 mg IVP Q6H PRN PRN Reason: Nausea/Vomiting 2ND LINE Last Admin: 03/20/17 16:58 Dose: 10 mg Mirtazapine (Remeron) 15 mg PO HS [facility] Last Admin: 03/21/17 21:48 Dose: 15 mg Nifedipine (Procardia Xl) 60 mg PO BID [facility] Last Admin: 03/22/17 09:26 Dose: Not Given Ondansetron HCl (Zofran Inj) 4 mg IVP Q6H PRN PRN Reason: Nausea/Vomiting 1ST LINE Last Admin: 03/22/17 02:39 Dose: 4 mg Pantoprazole Sodium (Protonix Ec Tab) 40 mg PO DAILY [facility] Last Admin: 03/22/17 10:31 Dose: 40 mg Sertraline HCl (Zoloft) 50 mg PO DAILY [facility] Last Admin: 03/22/17 10:31 Dose: 50 mg Sevelamer Carbonate (Renvela) 800 mg PO TIDCC [facility] Last Admin: 03/22/17 12:46 Dose: Not Given Trazodone HCl (Desyrel) 50 mg PO [facility] Last Admin: 03/21/17 21:48 Dose: 50 mg - Labs Labs: 03/21/17 10:35 03/21/17 10:35 PT 12.2 SECONDS (9.7-12.2) 03/19/17 06:49 INR 1.1 03/19/17 06:49 APTT 29 SECONDS (21-34) 03/19/17 06:49 - Constitutional Appears: No Acute Distress - Head Exam Head Exam: ATRAUMATIC, NORMOCEPHALIC - Respiratory Exam Respiratory Exam: Clear to Ausculation Bilateral. absent: Accessory Muscle Use , Rhonchi, Wheezes, Respiratory Distress, NORMAL BREATHING PATTERN - Cardiovascular Exam Cardiovascular Exam: REGULAR RHYTHM, +S1, +S2 - GI/Abdominal Exam GI & Abdominal Exam: Soft, Tenderness (RUQ), Normal Bowel Sounds. absent: Distended, Guarding, Rigid - Extremities Exam Extremities Exam: absent: Calf Tenderness, Pedal Edema - Neurological Exam Neurological Exam: Alert, Awake, Oriented x3 - Psychiatric Exam Psychiatric exam: Depressed - Skin Skin Exam: Dry, Normal Color, Warm Assessment and Plan - Assessment and Plan (Free Text) Plan: Patient has refused all labs today on three separate occasions. Will attempt to draw labs tomorrow. ESRD on HD- MWF Fluid overloaded Consult: Dr. Teague (help appreciated) Fever Patient had oral temp of 103 degrees. No growth on blood cultures at 72 hours continue on Zosyn 2.25mg IVPB Q8H - renal dosing History of diabetic gastroparesis Accuchecks QAC&HS Novolog ISS Levemir 12 units SQ Q12H History of osteomyelitis of left clavicle Clarification: patient finished antibiotic therapy Finished Daptomycin at [facility] on 02/11/17 Recently admitted at [facility] and discharged with Vancomycin 750 mg ,, after HD -->confirmed with ID Patient missed dose on Sunday. Last received on Sunday. So 1 time dose given today in the evening after HD per discussion with ID Opioid Dependence; Drug seeking behavior (per EMR) Zofran 4 mg IV Q6 PRN Reglan 10 mg IV Q6 PRN Hx of requesting Diluadid 3mg IVP Q3H Diluadid 0.75mg Q4 PRN for pain decreased to Diluadid 0.5mg Q4H PRN and will plan to continue to lower during stay. Pain Management Consulted (Dr. Robert - Anesthesia) - PGY1 spoke Dr. Robert. Dr. Robert believes the patient shows signs of addiction and recommends no Diluadid should be used for pain. Discussed that we are currently treating with 0.75mg Q4H and are currently weening down. Dr. Robert agreed. Hx of hypertensive cardiomyopathy KAMRAN 03/02/17: No evidence of endocarditis. LVEF WNL. Cardiac Catheterization on prior admission revealed patent coronaries; hypertensive cardiomyopahy EF: 45 Clonidine 0.3 mg PO TID Procardia XL 60 mg PO Q12H Prophylactic Measure Heparin 5000 units SQ Q12H Pepcid 20 mg IV daily Case discussed with Dr. Michelle Nicole PGY1 <Herman Martinez H - Last Filed: 03/22/17 13:54> Objective - Vital Signs/Intake and Output Vital Signs (last 24 hours): Temp Pulse Resp BP Pulse Ox 98.6 F 100 H 20 135/79 100 03/21/17 23:34 03/21/17 23:34 03/21/17 23:34 03/21/17 23:34 03/21/17 23:34 - Medications Medications: Current Medications Calcium Acetate (Phoslo) 667 mg PO TIDCC [facility] Last Admin: 03/22/17 12:46 Dose: Not Given Clonidine HCl (Catapres-Tts3 0.3 Mg/24 Hr) 1 patch TD Q7D@1000 [facility] Last Admin: 03/19/17 10:30 Dose: Not Given Docusate Sodium (Colace) 100 mg PO TID [facility] Last Admin: 03/22/17 09:08 Dose: Not Given Ergocalciferol (Drisdol 50,000 Intl Units Cap) 1 cap PO Q7D [facility] Last Admin: 03/22/17 01:12 Dose: 1 cap Gabapentin (Neurontin) 100 mg PO DAILY [facility] Heparin Sodium (Porcine) (Heparin) 5,000 units SC Q12 [facility] Last Admin: 03/22/17 09:09 Dose: Not Given Hydromorphone HCl (Dilaudid) 0.5 mg IVP Q4H PRN PRN Reason: Pain, severe (8-10) Hydroxyzine HCl (Atarax) 25 mg PO Q6 PRN PRN Reason: Agitation Last Admin: 03/22/17 05:01 Dose: 25 mg Piperacillin Sod/Tazobactam (Sod 2.25 gm/ Sodium Chloride) 100 mls @ 200 mls/ hr IVPB Q8H [facility] Last Admin: 03/22/17 05:01 Dose: 200 mls/hr Insulin Detemir (Levemir) 12 unit SC Q12 [facility] Last Admin: 03/22/17 10:31 Dose: 12 unit Insulin Human Regular (Novolin R) 0 unit SC ACHS [facility] PRN Reason: Protocol Last Admin: 03/22/17 12:00 Dose: Not Given Metoclopramide HCl (Reglan) 10 mg IVP Q6H PRN PRN Reason: Nausea/Vomiting 2ND LINE Last Admin: 03/20/17 16:58 Dose: 10 mg Mirtazapine (Remeron) 15 mg PO HS [facility] Last Admin: 03/21/17 21:48 Dose: 15 mg Nifedipine (Procardia Xl) 60 mg PO BID [facility] Last Admin: 03/22/17 09:26 Dose: Not Given Ondansetron HCl (Zofran Inj) 4 mg IVP Q6H PRN PRN Reason: Nausea/Vomiting 1ST LINE Last Admin: 03/22/17 02:39 Dose: 4 mg Pantoprazole Sodium (Protonix Ec Tab) 40 mg PO DAILY [facility] Last Admin: 03/22/17 10:31 Dose: 40 mg Sertraline HCl (Zoloft) 50 mg PO DAILY [facility] Last Admin: 03/22/17 10:31 Dose: 50 mg Sevelamer Carbonate (Renvela) 800 mg PO TIDCC [facility] Last Admin: 03/22/17 12:46 Dose: Not Given Trazodone HCl (Desyrel) 50 mg PO [facility] Last Admin: 03/21/17 21:48 Dose: 50 mg - Labs Labs: 03/21/17 10:35 03/21/17 10:35 PT 12.2 SECONDS (9.7-12.2) 03/19/17 06:49 INR 1.1 03/19/17 06:49 APTT 29 SECONDS (21-34) 03/19/17 06:49 Attending/Attestation - Attestation I have personally seen and examined this patient.: Yes I have fully participated in the care of the patient.: Yes I have reviewed all pertinent clinical information, including history, physical exam and plan: Yes Notes (Text): Medical attending: Patient was seen, however I did not examine the patient I only spoke with the patient. When I saw her she was not in any acute distress, she was sleeping, we did not discuss pain medication issues today. Plan is to decrease that to moderate to 0.5 today. She still on Zosyn IV at this time, were pending on the repeat blood cultures at this moment. As mentioned before she had a fever, there was some concern due to her CBC if she could have an infection. The patient is refusing lab work to be drawn, I'm being told that there've been 3 attempts so far she's declined all those. We did explain to her that were concerned about her CBC however she still wants to decline getting lab work I explained to the patient that very likely she's can be discharged tomorrow Thank you very much, Herman Martinez
--- NOTE | 2017-03-22 18:29 | CP.PCM.PN ---
Subjective - Date & Time of Evaluation Date of Evaluation: 03/22/17 Time of Evaluation: 16:00 - Subjective Subjective: SEEN ON RENAL F/U ALL ABOVE EMR REVIEWED STILL WITH ABDO PAIN ON HD M W F AND SAT Objective - Vital Signs/Intake and Output Vital Signs (last 24 hours): Temp Pulse Resp BP Pulse Ox 98.6 F 100 H 20 135/79 100 03/21/17 23:34 03/21/17 23:34 03/21/17 23:34 03/21/17 23:34 03/21/17 23:34 Intake and Output: 03/22/17 03/22/17 06:59 18:59 Intake Total 500 Balance 500 - Medications Medications: Current Medications Calcium Acetate (Phoslo) 667 mg PO TIDCC [facility] Last Admin: 03/22/17 18:02 Dose: 667 mg Clonidine HCl (Catapres-Tts3 0.3 Mg/24 Hr) 1 patch TD Q7D@1000 [facility] Last Admin: 03/19/17 10:30 Dose: Not Given Docusate Sodium (Colace) 100 mg PO TID [facility] Last Admin: 03/22/17 18:02 Dose: 100 mg Ergocalciferol (Drisdol 50,000 Intl Units Cap) 1 cap PO Q7D [facility] Last Admin: 03/22/17 01:12 Dose: 1 cap Gabapentin (Neurontin) 100 mg PO DAILY [facility] Heparin Sodium (Porcine) (Heparin) 5,000 units SC Q12 [facility] Last Admin: 03/22/17 09:09 Dose: Not Given Hydromorphone HCl (Dilaudid) 0.5 mg IVP Q4H PRN PRN Reason: Pain, severe (8-10) Last Admin: 03/22/17 14:33 Dose: 0.5 mg Hydroxyzine HCl (Atarax) 25 mg PO Q6 PRN PRN Reason: Agitation Last Admin: 03/22/17 05:01 Dose: 25 mg Piperacillin Sod/Tazobactam (Sod 2.25 gm/ Sodium Chloride) 100 mls @ 200 mls/ hr IVPB Q8H [facility] Last Admin: 03/22/17 14:32 Dose: 200 mls/hr Insulin Detemir (Levemir) 12 unit SC Q12 [facility] Last Admin: 03/22/17 10:31 Dose: 12 unit Insulin Human Regular (Novolin R) 0 unit SC ACHS [facility] PRN Reason: Protocol Last Admin: 03/22/17 18:04 Dose: 4 unit Metoclopramide HCl (Reglan) 10 mg IVP Q6H PRN PRN Reason: Nausea/Vomiting 2ND LINE Last Admin: 03/20/17 16:58 Dose: 10 mg Mirtazapine (Remeron) 15 mg PO HS [facility] Last Admin: 03/21/17 21:48 Dose: 15 mg Nifedipine (Procardia Xl) 60 mg PO BID [facility] Last Admin: 03/22/17 18:02 Dose: 60 mg Ondansetron HCl (Zofran Inj) 4 mg IVP Q6H PRN PRN Reason: Nausea/Vomiting 1ST LINE Last Admin: 03/22/17 02:39 Dose: 4 mg Pantoprazole Sodium (Protonix Ec Tab) 40 mg PO DAILY [facility] Last Admin: 03/22/17 10:31 Dose: 40 mg Sertraline HCl (Zoloft) 50 mg PO DAILY [facility] Last Admin: 03/22/17 10:31 Dose: 50 mg Sevelamer Carbonate (Renvela) 800 mg PO TIDCC [facility] Last Admin: 03/22/17 18:02 Dose: 800 mg Trazodone HCl (Desyrel) 50 mg PO HS [facility] Last Admin: 03/21/17 21:48 Dose: 50 mg - Labs Labs: 03/21/17 10:35 03/21/17 10:35 PT 12.2 SECONDS (9.7-12.2) 03/19/17 06:49 INR 1.1 03/19/17 06:49 APTT 29 SECONDS (21-34) 03/19/17 06:49 Assessment and Plan - Assessment and Plan (Free Text) Assessment: ESRD ON HD M W F AND SAT ANEMIA OF CKD .. ON EPO MULTIPLE CO MORBIDITIES C/O CURRENT CARE
[2017-03-23] MEDS: Piperacillin/Tazobact 2.25 GM in Sodium Chloride 100 ML IVPB SCH (05:08)
[2017-03-23] MEDS: (Novolin R) Insulin Human Regular 100 units/ml vial SC SCH (09:15)
[2017-03-23] MEDS: Pantoprazole 40 mg EC Tab PO SCH (10:30)
[2017-03-23] MEDS: Insulin Detemir 100 units/ml Vial (Levemir) SC SCH (10:30)
[2017-03-23] MEDS: NIFEdipine 60 mg ER Tab PO SCH (10:30)
--- NOTE | 2017-03-23 10:37 | CP.PCM.DIS ---
Addendum entered and electronically signed by Mary Gallegos DO 03/23/17 11:30 : Patient currently agreed for dialysis. Original Note: <Mary Gallegos - Last Filed: 03/23/17 11:25> Provider - Provider Date of Admission: 03/19/17 08:18 Attending physician: Herman Martinez DO Consults: Dr. Phillips Time Spent in preparation of Discharge (in minutes): 55 Hospital Course - Lab Results Lab Results: Micro Results 03/21/17 17:00 Blood-Venous Blood Culture - Preliminary NO GROWTH AFTER 24 HOURS 03/21/17 16:30 Blood-Venous Blood Culture - Preliminary NO GROWTH AFTER 24 HOURS Most Recent Lab Values WBC 11.1 K/uL (4.8-10.8) H 03/21/17 10:35 RBC 2.75 Mil/uL (3.80-5.20) L 03/21/17 10:35 Hgb 8.3 g/dL (11.0-16.0) L 03/21/17 10:35 Hct 26.0 % (34.0-47.0) L 03/21/17 10:35 MCV 94.5 fL (81.0-99.0) 03/21/17 10:35 MCH 30.0 pg (27.0-31.0) 03/21/17 10:35 MCHC 31.8 g/dL (33.0-37.0) L 03/21/17 10:35 RDW 14.9 % (11.5-14.5) H 03/21/17 10:35 Plt Count 266 K/uL (130-400) 03/21/17 10:35 MPV 7.9 fL (7.2-11.7) 03/21/17 10:35 Neut % (Auto) 84.5 % (50.0-75.0) H 03/21/17 10:35 Lymph % (Auto) 4.3 % (20.0-40.0) L 03/21/17 10:35 [place] % (Auto) 3.8 % (0.0-10.0) 03/21/17 10:35 Eos % (Auto) 6.5 % (0.0-4.0) H 03/21/17 10:35 Baso % (Auto) 0.9 % (0.0-2.0) 03/21/17 10:35 Neut # 9.3 K/uL (1.8-7.0) H 03/21/17 10:35 Lymph # 0.5 K/uL (1.0-4.3) L 03/21/17 10:35 [place] # 0.4 K/uL (0.0-0.8) 03/21/17 10:35 Eos # 0.7 K/uL (0.0-0.7) 03/21/17 10:35 Baso # 0.1 K/uL (0.0-0.2) 03/21/17 10:35 Neutrophils % (Manual) 72 % (50-75) 03/21/17 10:35 Band Neutrophils % 10 % (0-2) H 03/21/17 10:35 Lymphocytes % (Manual) 7 % (20-40) L 03/21/17 10:35 Monocytes % (Manual) 3 % (0-10) 03/21/17 10:35 Eosinophils % (Manual) 8 % (0-4) H 03/21/17 10:35 Platelet Estimate Normal (NORMAL) 03/21/17 10:35 Anisocytosis (manual) Slight 03/21/17 10:35 PT 12.2 SECONDS (9.7-12.2) 03/19/17 06:49 INR 1.1 03/19/17 06:49 APTT 29 SECONDS (21-34) 03/19/17 06:49 Sodium 135 mmol/L (132-148) 03/21/17 10:35 Potassium 4.7 mmol/L (3.6-5.2) 03/21/17 10:35 Chloride 93 mmol/L (98-107) L 03/21/17 10:35 Carbon Dioxide 25 mmol/L (22-30) 03/21/17 10:35 Anion Gap 22 (10-20) H 03/21/17 10:35 BUN 62 mg/dL (7-17) H 03/21/17 10:35 Creatinine 6.3 MG/DL (0.7-1.2) H 03/21/17 10:35 Est GFR ( Amer) 9 03/21/17 10:35 Est GFR (Non-Af Amer) 8 03/21/17 10:35 POC Glucose (mg/dL) 239 mg/dL (65-110) H 03/23/17 06:42 Random Glucose 146 mg/dL (65-105) H 03/21/17 10:35 Calcium 6.3 mg/dl (8.6-10.4) L 03/21/17 10:35 Phosphorus 6.2 mg/dL (2.5-4.5) H 03/21/17 10:35 Magnesium 1.9 mg/dL (1.6-2.3) 03/21/17 10:35 Total Bilirubin 0.6 mg/dL (0.2-1.3) 03/21/17 10:35 AST 23 U/L (14-36) 03/21/17 10:35 ALT 26 U/L (9-52) 03/21/17 10:35 Alkaline Phosphatase 156 U/L (38-126) H 03/21/17 10:35 Troponin I 0.0490 ng/mL (0.00-0.120) 03/19/17 06:18 NT-Pro-B Natriuret Pep [id number] pg/mL (0-450) H 03/19/17 06:18 Total Protein 7.3 g/dL (6.3-8.3) 03/21/17 10:35 Albumin 3.8 g/dL (3.5-5.0) 03/21/17 10:35 Globulin 3.4 gm/dL (2.2-3.9) 03/21/17 10:35 Albumin/Globulin Ratio 1.1 (1.0-2.1) 03/21/17 10:35 - Hospital Course Hospital Course: Upon Admission: 31 F with PMHx gastroparesis, diabetes, hypertension, ESRD (HD MWF), [place] in 2004 , chronic opiate dependance who came in with complaint of SOB and abdominal pain. Patient had severe intractable abdominal pain starting on Sunday. The pain is diffuse and rated as a 10/10. Patient is unable to describe the quality of the pain but admits that it is similar to previous bouts of abdominal pain. Abdominal pain is unrelated to meals. There is no change in stool frequency or consistency. Patient denied constipation or diarrhea.Patient also complained of chest pain during hemodialysis. Patient states that her baseline Systolic BP is in the 200s. Patient has been on Vancomycin as an outpatient for osteomyelitis. Per note from previous admission, Dr. Pinto specified that the patient should be on Vancomycin for 4-6 weeks. Patient has been going to Dialysis at [facility] on [address] [place] [address] in [place]. She was receiving Vancomycin after dialysis sessions M,W,F. Patient did not want us to examine her or take care of her. She stated if we do not give her pain medications, she would prefer if we did not take care of her at all. We expressed our concerns, explaining to her about her frequent admissions and requesting of Dilaudid. Hospitalist service apologized for the inconvenience, however, we talked about different options for pain management. Patient began to become irritated and did not want to talk to us any further. PMHx: Gastroparesis, DM, HTN, ESRD (HD MWF), [place] in 2004, chronic opiate dependence PSHx: exploratory laparatomy in 2005 and 2009 for adhesions. Cholecystecomy in 2009. L arm AVF 2014, I&D right foot abscess Meds: As per OCT Allergies: Toradol, Latex, Morphine, Tramadol Social: Denied illicit drug use, alcohol, tobacco. Family Hx: Mother with DM. Unspecified history of cancer on mom's side of family. PMD: Dr. Anshul Sexton Nephro: Dr. Phillips Throughout Hospital Course: Patient was admitted due to fluid overload secondary to ESRD requiring dialysis. Patient initially refused dialysis because she wanted to have dilaudid. Patient has frequent ED visits and admissions and patient causes multiple disruptions when she is denied administration of dilaudid. Patient orginally was on several private attending services but due to her multiple episodes of acting out, she was let go from those services. During this admission, patient finally agreed to have dialysis, however during dialysis she became aggravated and ripped out her dialysis line, and threatened to commit suicide. She refused to allow nurses to wrap the bleeding site. Security was called to diffuse the situation. With security present, the patient allowed the site to be cared for. Psychiatry was consulted and started the patient on several medications. She was started on a dilaudid taper. She was due for dialysis for day of discharge, but the patient refused because she wanted a larger dose of dilaudid. It was explained to the patient that her opiate abuse disorder is not helping or bettering her gastroporesis nor is it a recommended management of this condition. Patient advised to join a rehab, to assist her with her opiate addiction. She was highly encouraged to have her dialysis. However at this point patient refused. This is a brief summary of the patient's hospital course. Please review EMR for full record. Discharge Exam - Head Exam Head Exam: ATRAUMATIC, NORMOCEPHALIC - Eye Exam Eye Exam: EOMI, Normal appearance, PERRL Pupil Exam: NORMAL ACCOMODATION - ENT Exam ENT Exam: Mucous Membranes Dry - Respiratory Exam Respiratory Exam: Decreased Breath Sounds, NORMAL BREATHING PATTERN - Cardiovascular Exam Cardiovascular Exam: Tachycardia - GI/Abdominal Exam GI & Abdominal Exam: Normal Bowel Sounds, Unremarkable - Extremities Exam Extremities exam: normal inspection, pedal pulses present - Neurological Exam Neurological exam: Alert, Oriented x3 - Psychiatric Exam Psychiatric exam: Normal Affect, Normal Mood - Skin Skin Exam: Dry, Intact, Normal Color, Warm Discharge Plan - Follow Up Plan Condition: FAIR Disposition: HOME/ ROUTINE Instructions: Heart Failure (DC), Heart Failure (GEN), Renal Failure Diet (GEN) , Acute Abdominal Pain (DC), Acute Abdominal Pain (GEN) Additional Instructions: Patient is to continue all home medications. Patient is to continue dialysis MWF as scheduled. She was counselled on encouraged to stop opiate use. Please return to the ED if your symptoms worsen. [facility]. Referrals: Judie Guajardo MD [Staff Provider] - Clinic,Med Surg [Non-Staff] - 1 Week <Herman Martinez - Last Filed: 03/23/17 16:49> Provider - Provider Date of Admission: 03/19/17 08:18 Attending physician: Herman Martinez DO Hospital Course - Lab Results Lab Results: Micro Results 03/21/17 17:00 Blood-Venous Blood Culture - Preliminary NO GROWTH AFTER 24 HOURS 03/21/17 16:30 Blood-Venous Blood Culture - Preliminary NO GROWTH AFTER 24 HOURS Most Recent Lab Values WBC 9.7 K/uL (4.8-10.8) 03/23/17 12:08 RBC 2.76 Mil/uL (3.80-5.20) L 03/23/17 12:08 Hgb 8.5 g/dL (11.0-16.0) L 03/23/17 12:08 Hct 25.9 % (34.0-47.0) L 03/23/17 12:08 MCV 94.0 fL (81.0-99.0) 03/23/17 12:08 MCH 30.8 pg (27.0-31.0) 03/23/17 12:08 MCHC 32.8 g/dL (33.0-37.0) L 03/23/17 12:08 RDW 15.1 % (11.5-14.5) H 03/23/17 12:08 Plt Count 337 K/uL (130-400) 03/23/17 12:08 MPV 8.0 fL (7.2-11.7) 03/23/17 12:08 Neut % (Auto) 86.7 % (50.0-75.0) H 03/23/17 12:08 Lymph % (Auto) 6.3 % (20.0-40.0) L 03/23/17 12:08 [place] % (Auto) 3.5 % (0.0-10.0) 03/23/17 12:08 Eos % (Auto) 2.4 % (0.0-4.0) 03/23/17 12:08 Baso % (Auto) 1.1 % (0.0-2.0) 03/23/17 12:08 Neut # 8.5 K/uL (1.8-7.0) H 03/23/17 12:08 Lymph # 0.6 K/uL (1.0-4.3) L 03/23/17 12:08 [place] # 0.3 K/uL (0.0-0.8) 03/23/17 12:08 Eos # 0.2 K/uL (0.0-0.7) 03/23/17 12:08 Baso # 0.1 K/uL (0.0-0.2) 03/23/17 12:08 Neutrophils % (Manual) 91 % (50-75) H 03/23/17 12:08 Band Neutrophils % 1 % (0-2) 03/23/17 12:08 Lymphocytes % (Manual) 5 % (20-40) L 03/23/17 12:08 Monocytes % (Manual) 2 % (0-10) 03/23/17 12:08 Eosinophils % (Manual) 1 % (0-4) 03/23/17 12:08 Toxic Granulation Present 03/23/17 12:08 Platelet Estimate Normal (NORMAL) 03/23/17 12:08 Poikilocytosis (manual Slight 03/23/17 12:08 Basophilic Stippling Slight 03/23/17 12:08 Anisocytosis (manual) Slight 03/23/17 12:08 PT 12.2 SECONDS (9.7-12.2) 03/19/17 06:49 INR 1.1 03/19/17 06:49 APTT 29 SECONDS (21-34) 03/19/17 06:49 Sodium 134 mmol/L (132-148) 03/23/17 12:08 Potassium 5.4 mmol/L (3.6-5.2) H 03/23/17 12:08 Chloride 92 mmol/L (98-107) L 03/23/17 12:08 Carbon Dioxide 20 mmol/L (22-30) L 03/23/17 12:08 Anion Gap 27 (10-20) H 03/23/17 12:08 BUN 76 mg/dL (7-17) H 03/23/17 12:08 Creatinine 9.1 MG/DL (0.7-1.2) H* D 03/23/17 12:08 Est GFR ( Amer) 6 03/23/17 12:08 Est GFR (Non-Af Amer) 5 03/23/17 12:08 POC Glucose (mg/dL) 204 mg/dL (65-110) H 03/23/17 12:18 Random Glucose 221 mg/dL (65-105) H 03/23/17 12:08 Calcium 5.8 mg/dl (8.6-10.4) L* 03/23/17 12:08 Phosphorus 6.2 mg/dL (2.5-4.5) H 03/21/17 10:35 Magnesium 1.9 mg/dL (1.6-2.3) 03/21/17 10:35 Total Bilirubin 0.8 mg/dL (0.2-1.3) 03/23/17 12:08 AST 17 U/L (14-36) 03/23/17 12:08 ALT 26 U/L (9-52) 03/23/17 12:08 Alkaline Phosphatase 161 U/L (38-126) H 03/23/17 12:08 Troponin I 0.0490 ng/mL (0.00-0.120) 03/19/17 06:18 NT-Pro-B Natriuret Pep [id number] pg/mL (0-450) H 03/19/17 06:18 Total Protein 7.8 g/dL (6.3-8.3) 03/23/17 12:08 Albumin 4.0 g/dL (3.5-5.0) 03/23/17 12:08 Globulin 3.8 gm/dL (2.2-3.9) 03/23/17 12:08 Albumin/Globulin Ratio 1.1 (1.0-2.1) 03/23/17 12:08 Attending/Attestation - Attestation I have personally seen and examined this patient.: Yes I have fully participated in the care of the patient.: Yes I have reviewed all pertinent clinical information, including history, physical exam and plan: Yes Notes (Text): 03/23/17 16:44 Medical Attending: Patient was seen and I spoke with the patient but not physical examined by me as in the past she has become very agitated. Agree with the above note by the resident. Our conversation is not different from before. She again said she is in pain and disagreed about us stopping the Dilaudid. As reported before she was on smaller doses of 1mg and then 0.75 and then 0.5mg. There have been several phone calls from nursing saying the patient request more than this. She again said she was upset and not happy with me for not giving her the larger amounts she wanted to begin with. Again I apologized, she told me she did not want to see my ever again. She did agree to get HD today. So far we have not had a new CENTER MACHINE SET UP OPERATOR or event occur at HD. She has had two session of HD. As noted previously she pulled out her dialysis line access a few days ago demanding Dilaudid be given (please see the note from that day) and I had to have a long discussion with the patient's mother at bedside at that time. thank you Herman Martinez
[2017-03-23] MEDS ORDERED: HYDROmorphone 0.5 mg/0.5 ml ISec IVP ONE (11:00)
[2017-03-23] MEDS ORDERED: DiphenhydrAMINE 50 mg/ml Inj IVP ONE ×2 (12:00→14:00)
[2017-03-23 12:14] VITALS: TEMP 98
[2017-03-23 12:22] LABS: BASO # 0.1 K/uL (0.0-0.2); BASO % 1.1 % (0.0-2.0); EOS # 0.2 K/uL (0.0-0.7); EOS % 2.4 % (0.0-4.0); HEMOGLOBIN 8.5 g/dL (11.0-16.0); LYMPH # 0.6 K/uL (1.0-4.3); LYMPH % 6.3 % (20.0-40.0); MEAN CORPUSCULAR HEMOGLOBIN 30.8 pg (27.0-31.0); MEAN CORPUSCULAR HGB CONC 32.8 g/dL (33.0-37.0); MONO # 0.3 K/uL (0.0-0.8); MONO % 3.5 % (0.0-10.0); NEUT # 8.5 K/uL (1.8-7.0); NEUT % 86.7 % (50.0-75.0); PLATELET COUNT 337 K/uL (130-400); RBC 2.76 Mil/uL (3.80-5.20); RED CELL DISTRIBUTION WIDTH 15.1 % (11.5-14.5); WHITE BLOOD COUNT 9.7 K/uL (4.8-10.8)
[2017-03-23 12:23] LABS: ALB/GLOB RATIO 1.1 (1.0-2.1)
[2017-03-23 12:26] LABS: CALCIUM 5.8 mg/dl (8.6-10.4)
[2017-03-23 12:48] VITALS: RESP 20
[2017-03-23 12:48] LABS: BANDS 1 % (0-2); EOSINOPHIL 1 % (0-4); LYMPHOCYTE 5 % (20-40); MONOCYTE 2 % (0-10); NEUTROPHIL 91 % (50-75); PLATELET ESTIMATE NORMAL (NORMAL); TOTAL CELLS COUNTED 100
[2017-03-23 12:49] LABS: ANISOCYTOSIS SLIGHT; POIKILOCYTOSIS SLIGHT
[2017-03-23 12:50] LABS: TOXIC GRANULATION PRESENT
[2017-03-23 15:11] VITALS: BP 183/149; PULSE 125
--- NOTE | 2017-03-23 15:30 | PCM.HF ---
Heart Failure Core Measure - Heart Failure Ejection Fraction: 40 % or Greater Left Ventricular Function to be assessed after discharge: No BINU Inhibitor Prescribed: No Contraindication/Reason for not providing: patient on Nifedipine Beta-Allen Prescribed: None Contraindication/Reason for not providing: patient on Nifedipine Angiotensin II Receptor Allen Prescribed: No Contraindication/Reason for not providing: patient on Nifedipine AnticoagulationTherapy for Atrial Fibrillation/Atrialflutter: No Contraindication/Reason for not providing: patient on Nifedipine Aldosterone Antagonist Prescribed: No Contraindication/Reason for not providing: patient on Nifedipine Hydralazine Nitrate Prescribed: No Contraindication/Reason for not providing: patient on Nifedipine Implantable Cardioverter Defibrillator Therapy: No Contraindication/Reason for not providing: patient on Nifedipine Cardiac Resynchronization Therapy Prescribed: No Contraindication/Reason for not providing: patient on Nifedipine - Follow up Will be discharged to: Home Follow Up Date (must be within 7 days from discharge): 03/30/17 Follow Up Time: 09:00
[2017-03-23] MEDS ORDERED: Aluminum Hydroxide/Magnesium Hydroxide Susp (30 mL) PO SCH (17:00)
== END 2017-03-23 16:40 | disposition home or self-care (01) | DRG 296 ==
LOC: C.ER 05:44 → C.9E 08:18 → C.5T 14:21
PROVIDERS: ADMIT Hospitalist; ATTEND Hospitalist
PROC: 5A1D60Z (ICD-10-PCS; principal; 2017-03-19)
DX: E87.70 Fluid overload, unspecified (principal); E11.22 Type 2 diabetes mellitus with diabetic chronic kidney disease; I13.2 Hypertensive heart and chronic kidney disease with heart failure and with stage 5 chronic kidney disease, or end stage renal disease; K92.0 Hematemesis; N18.6 End stage renal disease; E11.43 Type 2 diabetes mellitus with diabetic autonomic (poly)neuropathy; D63.1 Anemia in chronic kidney disease; K31.84 Gastroparesis; F11.20 Opioid dependence, uncomplicated; I25.2 Old myocardial infarction; I50.9 Heart failure, unspecified; Z99.2 Dependence on renal dialysis; Z91.15 Patient's noncompliance with renal dialysis

== ENCOUNTER 2017-04-03 07:46 | Observation (INO) | payer MEDICAID, MEDICARE ==
[2017-04-03 07:47] VITALS: BMI 21.9
[2017-04-03 09:13] LABS: BASO # 0.1 K/uL (0.0-0.2); BASO % 0.5 % (0.0-2.0); EOS # 0.3 K/uL (0.0-0.7); EOS % 2.1 % (0.0-4.0); HEMATOCRIT 24.9 % (34.0-47.0); LYMPH # 0.5 K/uL (1.0-4.3); LYMPH % 3.2 % (20.0-40.0); MEAN CELL VOLUME 95.4 fL (81.0-99.0); MEAN CORPUSCULAR HEMOGLOBIN 30.3 pg (27.0-31.0); MEAN CORPUSCULAR HGB CONC 31.8 g/dL (33.0-37.0); MEAN PLATELET VOLUME 7.9 fL (7.2-11.7); MONO # 0.5 K/uL (0.0-0.8); MONO % 3.2 % (0.0-10.0); PLATELET COUNT 314 K/uL (130-400); RED CELL DISTRIBUTION WIDTH 15.3 % (11.5-14.5)
[2017-04-03 09:19] LABS: WHITE BLOOD COUNT 16.5 K/uL (4.8-10.8)
[2017-04-03 09:22] LABS: BILIRUBIN,TOTAL 0.6 mg/dL (0.2-1.3); TOTAL PROTEIN 7.1 g/dL (6.3-8.3)
[2017-04-03 09:23] LABS: CALCIUM 6.9 mg/dl (8.6-10.4)
[2017-04-03 09:28] LABS: POTASSIUM 4.4 mmol/L (3.6-5.2)
[2017-04-03 09:35] LABS: TROPONIN I 0.038 ng/mL (0.00-0.120)
[2017-04-03 09:36] LABS: NEUTROPHIL 93 % (50-75); TOTAL CELLS COUNTED 100
[2017-04-03 09:37] LABS: LARGE PLATELETS PRESENT
--- NOTE | 2017-04-03 10:22 | RAD ---
PROCEDURE: CHEST RADIOGRAPH, 1 VIEW HISTORY: SOB COMPARISON: Frontal chest radiograph 03/19/2017 FINDINGS: LUNGS: Prior bilateral pulmonary infiltrates or pulmonary edema appears to of resolved in the interval although prominent cardiomegaly is unchanged. No pneumothorax. No pleural effusion bilaterally. Trachea is midline PLEURA: Discussed above CARDIOVASCULAR: Discussed above OSSEOUS STRUCTURES: No significant abnormalities. VISUALIZED UPPER ABDOMEN: Normal. OTHER FINDINGS: Retained catheter fragment is again seen at the right subclavian region. IMPRESSION: Interval apparent resolution of diffuse bilateral infiltrates or pulmonary edema as discussed above. Prominent cardiomegaly persists. No pulmonary vascular derangement grossly evident at this time.
--- NOTE | 2017-04-03 10:45 | C.PDOC ---
History Of Present Illness 31 yr old female brought in via EMS, presents to the ER after blood sugar was found to be 19. Glucagon was given with resolution. In ED, patient is sleepy. Patient is on dialysis, last dialysis was yesterday with full treatment and no complications. Patient states this is has never happened before (low blood sugar ). Patient also admits to not taking her insulin this morning. Denies fever, chest pain, SOB, nausea, vomiting, headache, weakness or numbness. Time Seen by Provider: 04/03/17 08:40 Chief Complaint (Nursing): Altered Mental Status History Per: Patient History/Exam Limitations: None Onset/Duration Of Symptoms: Sudden Onset (STOCK RAISER) Past Medical History Reviewed: Historical Data, Nursing Documentation, Vital Signs Vital Signs: Last Vital Signs Temp 97.9 F 04/03/17 08:26 Pulse 90 04/03/17 08:26 Resp 16 04/03/17 08:26 BP 137/74 04/03/17 08:26 Pulse Ox 100 04/03/17 13:21 - Medical History PMH: Anemia, Anxiety, CHF ([place]), Diabetes, Fractures (Sep 2012 L foot), Gastritis, Gastrointestinal Ulcer (gastroparesis), Gall Bladder Disease ( gallbladder removed), Hepatitis, HTN, Hypercholesterolemia, Hyperthyroidism, Hypothyroidism, Kidney Stones, Pancreatitis (chronic), Peripheral Edema, End Stage Renal Disease, Chronic Kidney Disease, Seizures, Chronic Pain Surgical History: Cholecystectomy, Coronary Stent - [facility] Procedures ASSISTANCE WITH RESPIRATORY VENTILATION, 24-96 HRS, CPAP (11/27/16) CAUTERY TO STOP EPISTAX (03/22/14) CENTRAL VENOUS CATHETER PLACEMENT WITH GUIDANCE (11/06/14) DIALYSIS ARTERIOVENOSTOM (01/10/14) DRAINAGE OF RIGHT FOOT SKIN, EXTERNAL APPROACH (07/17/16) DRAINAGE OF RIGHT LOWER ARM SKIN, EXTERNAL APPROACH (05/25/16) ESOPHAGOGASTRODUODENOSCOPY [EGD] W/CLOSED BIOPSY (03/03/14) EXCISION OF STOMACH, ENDO, DIAGN (05/09/16) EXTIRPATE MATTER FROM R LOW ARM SUBCU/FASCIA, PERC (05/25/16) EXTRACTION OF RIGHT FOOT SKIN, EXTERNAL APPROACH (05/25/16) FLEXIBLE SIGMOIDOSCOPY (10/26/14) FLUOROSCOPY OF R JUGULAR VEIN USING L OSM CONTRAST, GUIDANCE (12/13/15) FLUOROSCOPY OF RIGHT SUBCLAVIAN VEIN, GUIDANCE (08/07/16) HEMODIALYSIS (04/05/15) INJECT INSULIN (12/23/12) INJECT/INFUSE ELECTROLYT (12/23/12) INJECT/INFUSE NEC (01/17/15) INSERT INFUSION DEV IN R INT JUGULAR VEIN, PERC (02/23/16) INSERTION OF INFUSION DEV INTO R BASILIC VEIN, PERC APPROACH (04/18/16) INSERTION OF INFUSION DEV INTO R BRACH VEIN, PERC APPROACH (02/19/17) INSERTION OF INFUSION DEV INTO R SUBCLAV VEIN, PERC APPROACH (08/29/16) INSERTION OF INFUSION DEV INTO SUP VENA CAVA, PERC APPROACH (05/25/16) INSERTION OF INFUSION DEVICE INTO R ATRIUM, PERC APPROACH (12/13/15) INSERTION OF VAD INTO CHEST SUBCU/FASCIA, OPEN APPROACH (12/13/15) MEASURE OF CARDIAC SAMPL & PRESSURE, L HEART, PERC APPROACH (10/09/16) OTHER ENDOSCOPY OF SM INTEST (08/25/14) PACKED CELL TRANSFUSION (10/26/14) PERFORMANCE OF URINARY FILTRATION, MULTIPLE (03/19/17) PERFORMANCE OF URINARY FILTRATION, SINGLE (11/27/16) PLAIN RADIOGRAPHY OF LEFT HEART USING OTHER CONTRAST (10/09/16) PLAIN RADIOGRAPHY OF MULT COR ART USING OTH CONTRAST (10/09/16) PLICATION OF VENA CAVA (03/22/14) POST NASAL PAC FOR EPIST (03/22/14) REMOVAL OF VAD FROM TRUNK SUBCU/FASCIA, OPEN APPROACH (02/23/16) MELVIN KENNY DIALYSIS SHUNT (03/03/14) THERAPEUTIC ERYTHROCYTAPHERESIS (10/26/14) TRANSFUSE NONAUT RED BLOOD CELLS IN PERIPH VEIN, PERC (02/19/17) ULTRASONOGRAPHY OF RIGHT AND LEFT HEART, TRANSESOPHAGEAL (02/19/17) ULTRASONOGRAPHY OF RIGHT SUBCLAVIAN VEIN, GUIDANCE (08/29/16) ULTRASONOGRAPHY OF RIGHT UPPER EXTREMITY VEINS, GUIDANCE (02/19/17) VACCINATION NEC (10/26/14) VENOUS CATHETERIZATION FOR RENAL DIALYSIS (03/03/14) Family History: States: No Known Family Hx - Social History Hx Tobacco Use: No Hx Alcohol Use: Yes Hx Substance Use: No - Immunization History Hx Tetanus Toxoid Vaccination: No Hx Influenza Vaccination: Yes Hx Pneumococcal Vaccination: Yes Review Of Systems Except As Marked, All Systems Reviewed And Found Negative. Constitutional: Negative for: Fever Cardiovascular: Negative for: Chest Pain Respiratory: Negative for: Shortness of Breath Gastrointestinal: Negative for: Nausea, Vomiting Neurological: Negative for: Weakness, Numbness, Headache Physical Exam - Physical Exam Appears: Non-toxic, No Acute Distress Skin: Warm, Dry, Other ((+) Chronic skin changes to lower extremities.) Head: Atraumatic, Normacephalic Oral Mucosa: Moist Chest: Symmetrical, No Tenderness Cardiovascular: Rhythm Regular, No Murmur Respiratory: Normal Breath Sounds, No Rales, No Rhonchi, No Stridor, No Wheezing Gastrointestinal/Abdominal: Normal Exam, Soft, No Tenderness, No Guarding, No Rebound Extremity: Normal ROM, No Swelling Neurological/Psych: Oriented x3, Normal Speech, Normal Motor ED Course And Treatment - Laboratory Results Result Diagrams: 04/03/17 09:07 04/03/17 09:07 ECG: Interpreted By Me, Viewed By Me ECG Rhythm: Sinus Rhythm ECG Interpretation: Normal Interpretation Of ECG: Normal axis. Prolonged QT LVH. Rate From EC (BPM) O2 Sat by Pulse Oximetry: 100 (RA) Pulse Ox Interpretation: Normal - Other Rad CXR X-Ray: Viewed By Me, Read By Radiologist Interpretation: PROCEDURE: CHEST RADIOGRAPH, 1 VIEW. HISTORY: SOB. COMPARISON: Frontal chest radiograph 03/19/2017. FINDINGS: LUNGS: Prior bilateral pulmonary infiltrates or pulmonary edema appears to of resolved in the interval although prominent cardiomegaly is unchanged. No pneumothorax. No pleural effusion bilaterally. Trachea is midline. PLEURA: Discussed above. CARDIOVASCULAR: Discussed above. OSSEOUS STRUCTURES: No significant abnormalities. VISUALIZED UPPER ABDOMEN: Normal. OTHER FINDINGS: Retained catheter fragment is again seen at the right subclavian region. IMPRESSION: Interval apparent resolution of diffuse bilateral infiltrates or pulmonary edema as discussed above. Prominent cardiomegaly persists. No pulmonary vascular derangement grossly evident at this time. Medical Decision Making Medical Decision Making: PLAN: * CXR * EKG * Troponin * CBC * CMP * BNP * Urinalysis Disposition - Disposition Disposition Time: 10:30 Condition: STABLE - Clinical Impression Clinical Impression: Hypoglycemia, ESRD (end stage renal disease) on dialysis, Leukocytosis - Scribe Statement The provider has reviewed the documentation as recorded by the Arun Zambrano Provider Attestation: All medical record entries made by the Kwadwoibjoan were at my direction and personally dictated by me. I have reviewed the chart and agree that the record accurately reflects my personal performance of the history, physical exam, medical decision making, and the department course for this patient. I have also personally directed, reviewed, and agree with the discharge instructions and disposition.
[2017-04-03] MEDS ORDERED: Diphenhydramine 1% Cream (1 oz) TOP PRN (12:16)
[2017-04-03] MEDS ORDERED: HYDROmorphone 0.5 mg/0.5 ml ISec IVP PRN (12:37)
--- NOTE | 2017-04-03 13:12 | CP.PCM.PN ---
Subjective - Date & Time of Evaluation Date of Evaluation: 04/03/17 Time of Evaluation: 12:05 - Subjective Subjective: PGY-[address] Srivastava 31 year old female diabetic gastroparesis, hypertension, ESRD (HD MWF) , [place] in 2004, chronic opiate dependance who was brought in via EMS after was found unconscious at home by her mother. Patient's mother at bedside reports she tried to wake the patient up 6:30am but the patient was unresponsive. Patient has poor IV access and IO was started en route to the hospital. Patient was found to have glucose of 19 and glucagon was given. Patient reports to have 3 bouts of non bloody diarrhea last night. She denies recent changes in diet or recent travels. Patient currently complains of generalized body pain and lethargy. Patient has been getting Dialysis at [facility] on [address] [place] [address] in [place]. She was receiving Vancomycin after dialysis sessions M,W,F for her clavicle osteomyelitis. Patient denies having headache, fever, chills, shortness of breath, chest pain, nausea, or vomiting. PMHx: Gastroparesis, DM, HTN, ESRD (HD MWF), [place] in 2004, chronic opiate dependence PSHx: exploratory laparatomy in 2005 and 2009 for adhesions. Cholecystecomy in 2009. L arm AVF 2014, I&D right foot abscess Meds: As per OCT Allergies: Toradol, Latex, Morphine, Tramadol Social: Denied illicit drug use, alcohol, tobacco. Family Hx: Mother with DM. Unspecified history of cancer on mom's side of family. PMD: Dr. Anshul Sexton Nephro: Dr. Phillips Objective - Vital Signs/Intake and Output Vital Signs (last 24 hours): Temp Pulse Resp BP Pulse Ox 97.9 F 90 16 137/74 100 04/03/17 08:26 04/03/17 08:26 04/03/17 08:26 04/03/17 08:26 04/03/17 10:48 - Medications Medications: Current Medications Calcium Acetate (Phoslo) 667 mg PO TIDCC KAREN Clonidine HCl (Catapres-Tts3 0.3 Mg/24 Hr) 1 patch TD Q7D@1000 [facility] Docusate Sodium (Colace) 100 mg PO TID [facility] Famotidine (Pepcid) 20 mg IVP DAILY [facility] Heparin Sodium (Porcine) (Heparin) 5,000 units SC Q12 [facility] Home Med (Metoclopramide [Reglan]) 10 mg PO ONCE K[facility]EN Hydromorphone HCl (Dilaudid) 0.5 mg IVP Q4H PRN PRN Reason: Pain, severe (8-10) Piperacillin Sod/Tazobactam Sod (Zosyn 2.25 Gm Iv Premix) 2.25 gm in 50 mls @ 100 mls/hr IVPB Q8 [facility] Insulin Aspart (Novolog) 6 unit SC AC [facility]EN Nifedipine (Procardia Xl) 60 mg PO BID [facility]AREN Zinc Acetate/Diphenhydramine (Benadryl 1% Zinc Acetate -0.1%) 1 cre TOP BID PRN PRN Reason: Itching / Pruritus - Constitutional Appears: Non-toxic, No Acute Distress - Head Exam Head Exam: NORMAL INSPECTION - Eye Exam Eye Exam: EOMI, PERRL - ENT Exam ENT Exam: Mucous Membranes Moist - Respiratory Exam Respiratory Exam: Clear to Ausculation Bilateral, NORMAL BREATHING PATTERN. absent: Respiratory Distress - Cardiovascular Exam Cardiovascular Exam: REGULAR RHYTHM, +S1, +S2. absent: Murmur - GI/Abdominal Exam GI & Abdominal Exam: Soft, Normal Bowel Sounds. absent: Tenderness - Neurological Exam Neurological Exam: Alert, Awake, Oriented x3 - Psychiatric Exam Psychiatric exam: Normal Affect, Normal Mood - Skin Skin Exam: Warm Additional comments: Left chest scar from osteomyelitis of left clavicle Assessment and Plan - Assessment and Plan (Free Text) Assessment: ESRD on HD- [facility] Nephrology consult, Dr. Phillips help appreciated Last HD 04/02/17 no complications Continue Phoslo Leukocytosis WBC of 16.5, afebrile Patient has poor IV access PICC ordered, IR help appreciated IV zosyn and vancomycin ID consult, Dr. Pinto appreciated Pending Procal, huerta cultures Follow up C Diff toxin and ova parasites Diabetic and diabetic gastroparesis Accuchecks ACHS Novolog 6 units SC AC Hold Levemir 12 units SQ Q12H, due to hypoglycemic episode in the morning History of osteomyelitis of left clavicle Clarification: patient finished antibiotic therapy Finished Daptomycin at [facility] on 02/11/17 Recently admitted at [facility] and discharged with Vancomycin 750 mg M,W,F after HD per ID Opioid Dependence; Drug seeking behavior (per EMR) Reglan 10 mg IV Q6 PRN Diluadid 0.5mg IVP Q4 PRN Hx of hypertensive cardiomyopathy KAMRAN 03/02/17: No evidence of endocarditis. LVEF WNL. Cardiac Catheterization on prior admission revealed patent coronaries;; hypertensive cardiomyopahy EF: 45 Clonidine 0.3 mg PO TID Procardia XL 60 mg PO Q12H Prophylactic Measure Heparin 5000 units SQ Q12H Pepcid 20 mg IV daily Tylenol prn Benadryl prn Will discuss with attending Dr. Srivastava
[2017-04-03] MEDS ORDERED: HYDROmorphone 0.5 mg/0.5 ml ISec IM PRN ×2 (13:20→21:00)
[2017-04-03] MEDS ORDERED: (Novolog) Insulin Aspart, Recombinant 100 u/ml 10 ml vial ONE (13:27)
[2017-04-03] MEDS ORDERED: HYDROmorphone 1 mg/ml ISec ONE ×2 (15:03→19:09)
[2017-04-03] MEDS ORDERED: HYDROmorphone 1 mg/ml ISec IM PRN ×2 (15:30→16:44)
[2017-04-03] MEDS ORDERED: Bacitracin 500 Units/gm Oint Foilpak UD ONE (15:59)
[2017-04-03] MEDS ORDERED: (Novolog) Insulin Aspart, Recombinant 100 u/ml 10 ml vial SC SCH (16:30)
[2017-04-03] MEDS: (Novolin R) Insulin Human Regular 100 units/ml vial SC SCH ×2 (17:00→22:50)
[2017-04-03] MEDS ORDERED: (Novolin R) Insulin Human Regular 100 units/ml vial ONE (17:17)
[2017-04-03] MEDS: NIFEdipine 60 mg ER Tab PO SCH (17:33)
--- NOTE | 2017-04-03 20:06 | CARD ---
APPROVED REPORT EKG Measurement Heart [id number] CT [id number] <Conclusion> Normal sinus rhythm Moderate voltage criteria for LVH, may be normal variant T wave abnormality, consider lateral ischemia Prolonged QT Abnormal ECG
[2017-04-03] MEDS: Piperacill/Tazo 2.25gm in Dex 2.25 GM/50 ML BAG IVPB SCH (21:21)
[2017-04-03] MEDS: HYDROmorphone 0.5 mg/0.5 ml ISec IM PRN (22:50)
[2017-04-04] MEDS: HYDROmorphone 0.5 mg/0.5 ml ISec IM PRN (04:01)
[2017-04-04] MEDS: Piperacill/Tazo 2.25gm in Dex 2.25 GM/50 ML BAG IVPB SCH ×3 (05:00→22:23)
[2017-04-04] MEDS ORDERED: Lidocaine 2% Inj (20ml) ONE (07:36)
[2017-04-04 08:58] LABS: RBC URINE 11 /hpf (0-3); URINE BACTERIA RARE (<OCC); URINE BILIRUBIN NEGATIVE (NEGATIVE); URINE BLOOD NEGATIVE (NEGATIVE); URINE COLOR Yellow (YELLOW); URINE GLUCOSE (UA) 3+ mg/dL (Normal); URINE KETONE NEGATIVE (NEGATIVE); URINE LEUKOCYTE ESTERASE 3+ Leu/uL (Negative); URINE PROTEIN 2+ mg/dL (NEGATIVE); URINE UROBILINOGEN NORMAL mg/dL (0.2-1.0); WBC URINE 101 /hpf (0-5)
[2017-04-04] MEDS ORDERED: Vancomycin 750mg/D5W 150 ml 150 ML IVPB SCH ×2 (09:00→10:00)
[2017-04-04] MEDS ORDERED: VANCOMYCIN 750 MG IVPB SCH (09:00)
[2017-04-04] MEDS ORDERED: (Novolin R) Insulin Human Regular 100 units/ml vial SC ONE (09:07)
[2017-04-04] MEDS: HYDROmorphone 0.5 mg/0.5 ml ISec IVP PRN ×2 (09:12→14:36)
--- NOTE | 2017-04-04 10:12 | CP.PCM.PN ---
Subjective - Date & Time of Evaluation Date of Evaluation: 04/04/17 Time of Evaluation: 09:00 - Subjective Subjective: PGY3 on medicine Dr. Srivastava service: Pt seen and examined at bedside this morning. Pt said she no longer hypoglycemic and in a lot of pain as usual. Pt also complains of right knee IO access. Plan for DC after dialysis today. Objective - Vital Signs/Intake and Output Vital Signs (last 24 hours): Temp Pulse Resp BP Pulse Ox 98.9 F 102 H 20 168/78 H 98 04/04/17 07:00 04/04/17 07:00 04/04/17 07:00 04/04/17 07:00 04/04/17 07:00 - Medications Medications: Current Medications Acetaminophen (Tylenol 325mg Tab) 650 mg PO Q6 PRN PRN Reason: Fever >100.4 F Amlodipine Besylate (Norvasc) 10 mg PO DAILY [facility] Last Admin: 04/03/17 20:59 Dose: 10 mg Calcium Acetate (Phoslo) 667 mg PO TIDCC [facility] Last Admin: 04/04/17 09:00 Dose: Not Given Clonidine HCl (Catapres-Tts3 0.3 Mg/24 Hr) 1 patch TD Q7D@1000 [facility] Docusate Sodium (Colace) 100 mg PO TID [facility] Last Admin: 04/03/17 17:33 Dose: Not Given Epoetin James (Procrit) 10,000 [place] [facility] [place] Famotidine (Pepcid) 20 mg IVP DAILY [facility] Ferric Sodium Gluconate Complex (Ferrlecit) 125 mg IVPB [facility] [place] Stop: 04/12/17 13:01 Heparin Sodium (Porcine) (Heparin) 5,000 units SC Q12 [facility] Last Admin: 04/03/17 22:49 Dose: 5,000 units Hydromorphone HCl (Dilaudid) 0.5 mg IVP Q4H PRN PRN Reason: Pain, severe (8-10) Piperacillin Sod/Tazobactam Sod (Zosyn 2.25 Gm Iv Premix) 2.25 gm in 50 mls @ 100 mls/hr IVPB Q8 [facility] Last Admin: 04/04/17 05:00 Dose: Not Given Vancomycin HCl (Vancocin 750mg/D5w 150 Ml) 150 mls @ 100 mls/hr [place]PB [facility] [place] Stop: 04/09/17 10:01 Insulin Detemir (Levemir) 12 unit SC Q12 [facility] Insulin Human Regular (Novolin R) 0 unit SC ACHS [facility] PRN Reason: Protocol Metoclopramide HCl (Reglan) 10 mg PO ONCE [facility] Nifedipine (Procardia Xl) 60 mg PO BID [facility] Last Admin: 04/03/17 17:33 Dose: 60 mg Pneumococcal Polyvalent Vaccine (Pneumovax 23 Vaccine) 0.5 ml IM .ONCE ONE Stop: 04/07/17 10:01 Zolpidem Tartrate (Ambien) 10 mg PO HS PRN PRN Reason: Insomnia Last Admin: 04/03/17 22:49 Dose: 10 mg - Constitutional Appears: Non-toxic, No Acute Distress, Chronically Ill - Head Exam Head Exam: NORMOCEPHALIC - Eye Exam Eye Exam: Normal appearance Pupil Exam: NORMAL ACCOMODATION - Respiratory Exam Respiratory Exam: Clear to Ausculation Bilateral, NORMAL BREATHING PATTERN. absent: Wheezes - Cardiovascular Exam Cardiovascular Exam: REGULAR RHYTHM, +S1, +S2. absent: Gallop, Rubs - GI/Abdominal Exam GI & Abdominal Exam: Soft, Normal Bowel Sounds - Neurological Exam Neurological Exam: Alert, Awake, Oriented x3 - Psychiatric Exam Psychiatric exam: Normal Mood - Skin Additional comments: left chest surgical scar Assessment and Plan - Assessment and Plan (Free Text) Assessment: ESRD on HD- [facility] Nephrology consult, Dr. Phillips help appreciated Last HD 04/02/17 no complications Continue Phoslo Plan for DC after dialysis Leukocytosis WBC of 16.5, afebrile Patient has poor IV access Procalcitonin elevated, likely secondary to ESRD. UA+ F/U urine and blood culture. Continue monitoring. Diabetic and diabetic gastroparesis Accuchecks ACHS Novolog 6 units SC AC Hold Levemir 12 units SQ Q12H, due to hypoglycemic episode in the morning History of osteomyelitis of left clavicle Clarification: patient finished antibiotic therapy Finished Daptomycin at [facility] on 02/11/17 Recently admitted at [facility] and discharged with Vancomycin 750 mg M,W,F after HD per ID Opioid Dependence; Drug seeking behavior (per EMR) Reglan 10 mg IV Q6 PRN Diluadid 0.5mg IVP Q4 PRN Hx of hypertensive cardiomyopathy KAMRAN 03/02/17: No evidence of endocarditis. LVEF WNL. Cardiac Catheterization on prior admission revealed patent coronaries;; hypertensive cardiomyopahy EF: 45 Clonidine 0.3 mg PO TID Procardia XL 60 mg PO Q12H Prophylactic Measure Heparin 5000 units SQ Q12H Pepcid 20 mg IV daily Tylenol prn Benadryl prn Management as per Dr. Srivastava
[2017-04-04] MEDS: Insulin Detemir 100 units/ml Vial (Levemir) SC SCH ×2 (11:29→22:21)
[2017-04-04] MEDS: NIFEdipine 60 mg ER Tab PO SCH ×2 (11:34→18:37)
[2017-04-04] MEDS ORDERED: Epoetin Alfa 10,000 unit/ml Dialysis IV SCH (13:00)
[2017-04-04] MEDS ORDERED: Ferric Sodium Gluconat Complex 62.5 mg/5 ml Vial IVPB SCH (13:00)
[2017-04-04] MEDS: (Novolin R) Insulin Human Regular 100 units/ml vial SC SCH ×3 (13:15→22:20)
[2017-04-04] MEDS ORDERED: DiphenhydrAMINE 50 mg/ml Inj IVP STA (14:25)
[2017-04-04 14:28] LABS: BASO # 0.1 K/uL (0.0-0.2); EOS # 0.7 K/uL (0.0-0.7); EOS % 8.8 % (0.0-4.0); HEMATOCRIT 23.2 % (34.0-47.0); LYMPH # 0.9 K/uL (1.0-4.3); MEAN CELL VOLUME 93.9 fL (81.0-99.0); MEAN CORPUSCULAR HEMOGLOBIN 30.6 pg (27.0-31.0); MEAN CORPUSCULAR HGB CONC 32.6 g/dL (33.0-37.0); MEAN PLATELET VOLUME 7.6 fL (7.2-11.7); MONO # 0.4 K/uL (0.0-0.8); MONO % 4.8 % (0.0-10.0); RED CELL DISTRIBUTION WIDTH 14.9 % (11.5-14.5); WHITE BLOOD COUNT 8.5 K/uL (4.8-10.8)
[2017-04-04 14:36] LABS: POTASSIUM 5.2 mmol/L (3.6-5.2)
[2017-04-04 14:38] LABS: BILIRUBIN,TOTAL 0.5 mg/dL (0.2-1.3)
[2017-04-04 14:39] LABS: CALCIUM 7.1 mg/dl (8.6-10.4); TOTAL PROTEIN 7.4 g/dL (6.3-8.3)
[2017-04-04] MEDS ORDERED: DiphenhydrAMINE 50 mg/ml Inj IVP ONE (17:15)
[2017-04-04] MEDS ORDERED: HYDROmorphone 0.5 mg/0.5 ml ISec IVP ONE (17:45)
--- NOTE | 2017-04-04 18:51 | CP.PCM.CON ---
History of Present Illness - History of Present Illness History of Present Illness: 31 yr old female brought in via EMS, presents to the ER after blood sugar was found to be 19. Glucagon was given with resolution. In ED, patient is sleepy. Patient is on dialysis, last dialysis was yesterday with full treatment and no complications. Patient states this is has never happened before (low blood sugar ). Patient also admits to not taking her insulin this morning. Denies fever, chest pain, SOB, nausea, vomiting, headache, weakness or numbness. 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 - Medical History PMH: Anemia, Anxiety, CHF (Florid), Diabetes, Fractures (Sep 2012 L foot), Gastritis, Gastrointestinal Ulcer (gastroparesis), Gall Bladder Disease ( gallbladder removed), Hepatitis, HTN, Hypercholesterolemia, Hyperthyroidism, Hypothyroidism, Kidney Stones, Pancreatitis (chronic), Peripheral Edema, End Stage Renal Disease, Chronic Kidney Disease, Seizures, Chronic Pain Surgical History: Cholecystectomy, Coronary Stent Review of Systems - Constitutional Constitutional: As Per HPI - EENT Eyes: absent: As Per HPI, Blind Spots, Blurred Vision, Change in Vision, Decreased Night Vision, Diplopia, Discharge, Dry Eye, Exophthalmos, Floaters, Irritation, Itchy Eyes, Loss of Peripheral Vision, Pain, Photophobia, Requires Corrective Lenses, Sees Flashes, Spots in Vision, Tunnel Vision, Other Visual Disturbances, Loss of Vision, Other Ears: absent: As Per HPI, Decreased Hearing, Ear Discharge, Ear Pain, Tinnitus, Abnormal Hearing, Disequilibrium, Dizziness, Other Nose/Mouth/Throat: absent: As Per HPI, Epistaxis, Nasal Congestion, Nasal Discharge, Nasal Obstruction, Nasal Trauma, Nose Pain, Post Nasal Drip, Sinus Pain, Sinus Pressure, Bleeding Gums, Change in Voice, Dental Pain, Dry Mouth, Dysphagia, Halitosis, Hoarsness, Lip Swelling, Mouth Lesions, Mouth Pain, Odynophagia, Sore Throat, Throat Swelling, Tongue Swelling, Facial Pain, Neck Pain, Neck Mass, Other - Breasts Breasts: absent: As Per HPI, Change in Shape, Mass, Pain, Nipple Discharge, Nipple Inversion, Skin Changes, Swelling, Other - Cardiovascular Cardiovascular: absent: As Per HPI, Acrocyanosis, Chest Pain, Chest Pain at Rest , Chest Pain with Activity, Claudication, Diaphoresis, Dyspnea, Dyspnea on Exertion, Edema, Irregular Heart Rhythm, Pain Radiating to Arm/Neck/Jaw, Leg Edema, Leg Ulcers, Lightheadedness, Orthopnea, Palpitations, Paroxysmal Nocturnal Dyspnea, Pedal Edema, Radiating Pain, Rapid Heart Rate, Slow Heart Rate, Syncope, Other - Respiratory Respiratory: absent: As Per HPI, Cough, Dyspnea, Hemoptysis, Dyspnea on Exertion , Wheezing, Snoring, Stridor, Pain on Inspiration, Chest Congestion, Excessive Mucous Production, Change in Mucous Color, Pain with Coughing, Other - Gastrointestinal Gastrointestinal: absent: As Per HPI, Abdominal Pain, Belching, Bloating, Change in Bowel Habits, Change in Stool Character, Coffee Ground Emesis, Constipation, Cramping, Diarrhea, Dyspepsia, Dysphagia, Early Satiety, Excessive Flatus, Fecal Incontinence, Heartburn, Hematemesis, Hematochezia, Loose Stools, Melena, Nausea, Odynophagia, Temesmus, Vomiting, Other - Genitourinary Genitourinary: absent: As Per HPI, Change in Urinary Stream, Difficulty Urinating, Dysuria, Flank Pain, Hematuria, Pyuria, Nocturia, Urinary Incontinence, Urinary Frequency, Urinary Hesitance, Urinary Urgency, Voiding Freq/Small Amts, Freq UTI, Hx Renal/Bladder Calculi, Hx /Renal Surgery, Bladder Distension, Other - Reproductive: Female Reproductive:Female: absent: As Per HPI, Amenorrhea, Amenorrhea/ Control, Currently Menstual, Cycle <21 Days, Cycle >35 Days, Cycle Variable, Menses 1-7 Days, Menses >/= 8 Days, Menses Variable, Cycle > 4 Weeks Between, No Menses for 6 Months, Heavy Menses, Light Menses, Normal Menses, Spotting Between Cycles , S/P Hysterectomy, Menopausal, Post Menopausal, Premenarche, Abnormal Vaginal Bleeding, Dysmenorrhea, Dyspareunia, Genital Lesions, Genital Pruritis, Pelvic Pain, Prolapse Symptoms, Sexual Dysfunction, Vaginal Discharge, Vaginal Dryness , Vaginal Odor, Vaginal Pruritis, Other - Menstruation Menstruation: absent: As Per HPI, Amenorrhea, Amenorrhea/ Control, Currently Menstual, Cycle <21 Days, Cycle >35 Days, Cycle Variable, Menses 1-7 Days, Menses >/= 8 Days, Menses Variable, Cycle > 4 Weeks Between, No Menses for 6 Months, Heavy Menses, Light Menses, Normal Menses, Spotting Between Cycles , S/P Hysterectomy, Menopausal, Post Menopausal, Premenarche, Abnormal Vaginal Bleeding, Dysmenorrhea, Other - Musculoskeletal Musculoskeletal: absent: As Per HPI, Abnormal Gait, Arthralgias, Atrophy, Back Pain, Deformity, Joint Swelling, Limited Range of Motion, Loss of Height, Muscle Cramps, Muscle Weakness, Myalgias, Neck Pain, Numbness, Radiating Pain into Limb, Stiffness, Tingling, Other - Integumentary Integumentary: absent: As Per HPI, Acne, Alopecia, Bleeding Lesions, Change in Hair, Change in Nails, Change in Pigmentation, Changing Lesions, Dry Skin, Erythema, Furuncle, Hirsutism, Lesions, New Lesions, Non-Healing Lesions, Photosensitivity, Pruritus, Rash, Skin Pain, Skin Ulcer, Sores, Striae, Swelling , Unusual Bruising, Wounds, Jaundice, Other - Neurological Neurological: absent: As Per HPI, Abnormal Gait, Abnormal Hearing, Abnormal Movements, Abnormal Speech, Behavioral Changes, Burning Sensations, Confusion, Convulsions, Disequilibrium, Dizziness, Numbness, Focal Weakness, Frequent Falls , Headaches, Lack of Coordination, Loss of Vision, Memory Loss, Paresthesias, Radicular Pain, Restless Legs, Sensory Deficit, Syncope, Tingling, Tremor, Vertigo, Weakness, Other Visual Disturbances, Other - Psychiatric Psychiatric: absent: As Per HPI, Abnormal Sleep Pattern, Anhedonia, Anxiety, Auditory Hallucinations, Behavioral Changes, Change in Appetite, Change in Libido, Confusion, Depression, Difficulty Concentrating, Hallucinations, Homicidal Ideation, Hopelessness, Irritability, Memory Loss, Mood Swings, Panic Attacks, Paranoia, Suicidal Ideation, Visual Hallucinations, Tactile Hallucinations, Other - Endocrine Endocrine: absent: As Per HPI, Change in Body Appearance, Change in Libido, Cold Intolorance, Deepening of Voice, Excessive Sweating, Fatigue, Flushing, Heat Intolorance, Increase in Ring/Shoe/Hat Size, Palpitations, Polydipsia, Polyphagia, Polyuria, Other - Hematologic/Lymphatic Hematologic: absent: As Per HPI, Easy Bleeding, Easy Bruising, Lymphadenopathy, Other Past Patient History - Infectious Disease Hx of Infectious Diseases: None - Tetanus Immunizations Tetanus Immunization: Unknown - Past Medical History & Family History Past Medical History?: Yes - Past Social History Smoking Status: Never Smoked - CARDIAC Hx Congestive Heart Failure: Yes (Florid) Hx Hypercholesterolemia: Yes Hx Hypertension: Yes Hx Peripheral Edema: Yes - PULMONARY Hx Asthma: Yes Hx Bronchitis: Yes Hx Pneumonia: Yes Hx Sleep Apnea: Yes - NEUROLOGICAL Hx Seizures: Yes - HEENT Hx HEENT Problems: Yes Hx Cataracts: Yes Hx Glaucoma: Yes - RENAL Hx Chronic Kidney Disease: Yes Hx Kidney Stones: Yes - ENDOCRINE/METABOLIC Hx Hyperthyroidism: Yes Hx Hypothyroidism: Yes - HEMATOLOGICAL/ONCOLOGICAL Hx Anemia: Yes - INTEGUMENTARY Hx Dermatological Problems: Yes Other/Comment: DRY ITCHY SKIN ;multiple/generalized dark spots on skin - MUSCULOSKELETAL/RHEUMATOLOGICAL Hx Falls: Yes Hx Fractures: Yes (Sep 2012 L foot) - GASTROINTESTINAL Hx Gall Bladder Disease: Yes (gallbladder removed) Hx Gastritis: Yes Hx Pancreatitis: Yes (chronic) - PSYCHIATRIC Hx Anxiety: Yes Hx Substance Use: Yes - SURGICAL HISTORY Hx Cholecystectomy: Yes Hx Coronary Stent: Yes - ANESTHESIA Hx Anesthesia: Yes Hx Anesthesia Reactions: No Hx Malignant Hyperthermia: No Meds Home Medications: Home Medication List Medication Instructions Recorded Confirmed Type Ferric Sodium Gluconat Complex 125 mg IVPB MWF vial 04/04/17 Rx [Ferrlecit] amLODIPine [Norvasc] 10 mg PO DAILY tab 04/04/17 Rx Allergies/Adverse Reactions: Allergies Allergy/AdvReac Type Severity Reaction Status Date / Time ketorolac tromethamine Allergy RASH Verified 03/19/17 05:51 [From Toradol] latex Allergy RASH Verified 03/19/17 05:51 morphine Allergy RASH Verified 03/19/17 05:51 tramadol Allergy RASH Verified 03/19/17 05:51 - Medications Medications: Current Medications Acetaminophen (Tylenol 325mg Tab) 650 mg PO Q6 PRN PRN Reason: Fever >100.4 F Amlodipine Besylate (Norvasc) 10 mg PO DAILY [facility] Last Admin: 04/04/17 11:34 Dose: Not Given Calcium Acetate (Phoslo) 667 mg PO TIDCC [facility] Last Admin: 04/04/17 18:37 Dose: 667 mg Clonidine HCl (Catapres-Tts3 0.3 Mg/24 Hr) 1 patch TD Q7D@1000 [facility] Docusate Sodium (Colace) 100 mg PO TID [facility] Last Admin: 04/04/17 18:37 Dose: 100 mg Epoetin James (Procrit) 10,000 unit IV MWF [facility] Last Admin: 04/04/17 14:40 Dose: 10,000 unit Famotidine (Pepcid) 20 mg IVP DAILY [facility] Last Admin: 04/04/17 11:34 Dose: Not Given Ferric Sodium Gluconate Complex (Ferrlecit) 125 [facility] Stop: 04/12/17 13:01 Last Admin: 04/04/17 14:41 Dose: 125 mg Heparin Sodium (Porcine) (Heparin) 5,000 units SC Q12 [facility] Last Admin: 04/04/17 11:33 Dose: Not Given Hydromorphone HCl (Dilaudid) 0.5 mg IVP Q4H PRN PRN Reason: Pain, severe (8-10) Last Admin: 04/04/17 14:36 Dose: 0.5 mg Piperacillin Sod/Tazobactam Sod (Zosyn 2.25 Gm Iv Premix) 2.25 gm in 50 mls @ 100 mls/hr IVPB Q8 [facility] Last Admin: 04/04/17 14:20 Dose: Not Given Vancomycin HCl (Vancocin 750mg/D5w 150 Ml) 150 mls @ 100 mls/hr IVPB [facility] [place] Stop: 04/09/17 10:01 Last Admin: 04/04/17 11:34 Dose: Not Given Insulin Detemir (Levemir) 12 unit SC Q12 [facility] Last Admin: 04/04/17 11:29 Dose: 12 unit Insulin Human Regular (Novolin R) 0 unit SC ACHS [facility] PRN Reason: Protocol Last Admin: 04/04/17 18:37 Dose: 3 unit Metoclopramide HCl (Reglan) 10 mg PO ONCE [facility] Nifedipine (Procardia Xl) 60 mg PO BID [facility] Last Admin: 04/04/17 18:37 Dose: 60 mg Pneumococcal Polyvalent Vaccine (Pneumovax 23 Vaccine) 0.5 ml IM .ONCE ONE Stop: 04/07/17 10:01 Zolpidem Tartrate (Ambien) 10 mg PO HS PRN PRN Reason: Insomnia Last Admin: 04/03/17 22:49 Dose: 10 mg Physical Exam - Constitutional Appears: Non-toxic, Chronically Ill - Head Exam Head Exam: NORMOCEPHALIC - Eye Exam Eye Exam: PERRL. absent: Scleral icterus - ENT Exam ENT Exam: Mucous Membranes Dry, Normal External Ear Exam - Neck Exam Neck exam: Negative for: Thyromegaly - Respiratory Exam Respiratory Exam: Decreased Breath Sounds, Clear to Auscultation Bilateral - Cardiovascular Exam Cardiovascular Exam: REGULAR RHYTHM, +S1, +S2 - GI/Abdominal Exam GI & Abdominal Exam: Diminished Bowel Sounds, Soft. absent: Tenderness - Rectal Exam Rectal Exam: Deferred - Exam Exam: NORMAL INSPECTION - Extremities Exam Extremities exam: Positive for: pedal pulses present. Negative for: calf tenderness, pedal edema, tenderness - Back Exam Back exam: absent: CVA tenderness (L), CVA tenderness (R) - Neurological Exam Neurological exam: Alert, CN II-XII Intact, Oriented x3, Reflexes Normal - Psychiatric Exam Psychiatric exam: Normal Mood - Skin Skin Exam: Dry, Intact Results - Vital Signs Recent Vital Signs: Last Vital Signs Temp 97.6 F 04/04/17 17:30 Pulse 91 H 04/04/17 17:30 Resp 24 04/04/17 17:30 BP 171/79 H 04/04/17 17:30 Pulse Ox 98 04/04/17 17:30 - Labs Result Diagrams: 04/04/17 14:23 04/04/17 14:23 Labs: Laboratory Results - last 24 hr 04/03/17 04/04/17 04/04/17 21:51 07:25 08:47 WBC RBC Hgb Hct MCV MCH MCHC RDW Plt Count MPV Neut % (Auto) Lymph % (Auto) Shelby % (Auto) Eos % (Auto) Baso % (Auto) Neut # Lymph # Shelby # Eos # Baso # Sodium Potassium Chloride Carbon Dioxide Anion Gap BUN Creatinine Est GFR ( Amer) Est GFR (Non-Af Amer) POC Glucose (mg/dL) 373 H 274 H Random Glucose Calcium Total Bilirubin AST ALT Alkaline Phosphatase Total Protein Albumin Globulin Albumin/Globulin Ratio Urine Color Yellow Urine Clarity Hazy Urine pH 7.0 Ur Specific Bliss 1.009 Urine Protein 2+ H Urine Glucose (UA) 3+ H Urine Ketones Negative Urine Blood Negative Urine Nitrate Negative Urine Bilirubin Negative Urine Urobilinogen Normal Ur Leukocyte Esterase 3+ H Urine WBC (Auto) 101 H Urine RBC (Auto) 11 H Ur Squamous Epith Cells 13 H Urine Bacteria Rare 04/04/17 04/04/17 04/04/17 11:03 14:23 14:23 WBC 8.5 RBC 2.47 L Hgb 7.6 L Hct 23.2 L MCV 93.9 MCH 30.6 MCHC 32.6 L RDW 14.9 H Plt Count 308 MPV 7.6 Neut % (Auto) 74.4 Lymph % (Auto) 11.0 L Shelby % (Auto) 4.8 Eos % (Auto) 8.8 H Baso % (Auto) 1.0 Neut # 6.3 Lymph # 0.9 L Shelby # 0.4 Eos # 0.7 Baso # 0.1 Sodium 135 Potassium 5.2 Chloride 94 L Carbon Dioxide 23 Anion Gap 24 H BUN 71 H Creatinine 7.3 H D Est GFR ( Amer) 8 Est GFR (Non-Af Amer) 7 POC Glucose (mg/dL) 335 H Random Glucose 364 H Calcium 7.1 L Total Bilirubin 0.5 AST 18 ALT 29 Alkaline Phosphatase 142 H D Total Protein 7.4 Albumin 3.7 Globulin 3.7 Albumin/Globulin Ratio 1.0 Urine Color Urine Clarity Urine pH Ur Specific Bliss Urine Protein Urine Glucose (UA) Urine Ketones Urine Blood Urine Nitrate Urine Bilirubin Urine Urobilinogen Ur Leukocyte Esterase Urine WBC (Auto) Urine RBC (Auto) Ur Squamous Epith Cells Urine Bacteria 04/04/17 18:19 WBC RBC Hgb Hct MCV MCH MCHC RDW Plt Count MPV Neut % (Auto) Lymph % (Auto) Shelby % (Auto) Eos % (Auto) Baso % (Auto) Neut # Lymph # Shelby # Eos # Baso # Sodium Potassium Chloride Carbon Dioxide Anion Gap BUN Creatinine Est GFR ( Amer) Est GFR (Non-Af Amer) POC Glucose (mg/dL) 238 H Random Glucose Calcium Total Bilirubin AST ALT Alkaline Phosphatase Total Protein Albumin Globulin Albumin/Globulin Ratio Urine Color Urine Clarity Urine pH Ur Specific Bliss Urine Protein Urine Glucose (UA) Urine Ketones Urine Blood Urine Nitrate Urine Bilirubin Urine Urobilinogen Ur Leukocyte Esterase Urine WBC (Auto) Urine RBC (Auto) Ur Squamous Epith Cells Urine Bacteria Assessment & Plan (1) ESRD (end stage renal disease) on dialysis Status: Acute - Assessment and Plan (Free Text) Assessment: ALL CULTURES NEG AWAKE ALERT NO ACTIVE SIGNS OF INFECTION CONT OBSERVATION
[2017-04-04] MEDS: Oxycodone/Acetaminophen 5/325 mg Tab PO PRN (23:01)
--- NOTE | 2017-04-04 23:48 | CP.PCM.CON ---
History of Present Illness - History of Present Illness History of Present Illness: REASONS FOR CONSULT : ESRD ON HD M W F AND SAT ANEMIA OF CKD PT WAS SEEN ON RENAL CONSULTATION IN THE ER YESTERDAY .. WAS SEEN ON [facility] F/U AND WAS SEEN ON HD TODAY PT WAS BROUGHT TO ER FOR ALTERED MENTAL STATUS AND SEVERE HYPOGLYCEMIA History Of Present Illness 31 yr old female brought in via EMS, presents to the ER after blood sugar was found to be 19. Glucagon was given with resolution. In ED, patient is sleepy. Patient is on dialysis, last dialysis was yesterday with full treatment and no complications. Patient states this is has never happened before (low blood sugar ). Patient also admits to not taking her insulin this morning. Denies fever, chest pain, SOB, nausea, vomiting, headache, weakness or numbness. 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) Past Medical History Reviewed: Historical Data, Nursing Documentation, Vital Signs Vital Signs: Last Vital Signs Temp 97.9 F 04/03/17 08:26 Pulse 90 04/03/17 08:26 Resp 16 04/03/17 08:26 BP 137/74 04/03/17 08:26 Pulse Ox 100 04/03/17 13:21 Past Patient History - Infectious Disease Hx of Infectious Diseases: None - Tetanus Immunizations Tetanus Immunization: Unknown - Past Medical History & Family History Past Medical History?: Yes - Past Social History Smoking Status: Never Smoked - CARDIAC Hx Congestive Heart Failure: Yes (Florid) Hx Hypercholesterolemia: Yes Hx Hypertension: Yes Hx Peripheral Edema: Yes - PULMONARY Hx Asthma: Yes Hx Bronchitis: Yes Hx Pneumonia: Yes Hx Sleep Apnea: Yes - NEUROLOGICAL Hx Seizures: Yes - HEENT Hx HEENT Problems: Yes Hx Cataracts: Yes Hx Glaucoma: Yes - RENAL Hx Chronic Kidney Disease: Yes Hx Kidney Stones: Yes - ENDOCRINE/METABOLIC Hx Hyperthyroidism: Yes Hx Hypothyroidism: Yes - HEMATOLOGICAL/ONCOLOGICAL Hx Anemia: Yes - INTEGUMENTARY Hx Dermatological Problems: Yes Other/Comment: DRY ITCHY SKIN ;multiple/generalized dark spots on skin - MUSCULOSKELETAL/RHEUMATOLOGICAL Hx Falls: Yes Hx Fractures: Yes (Sep 2012 L foot) - GASTROINTESTINAL Hx Gall Bladder Disease: Yes (gallbladder removed) Hx Gastritis: Yes Hx Pancreatitis: Yes (chronic) - PSYCHIATRIC Hx Anxiety: Yes Hx Substance Use: Yes - SURGICAL HISTORY Hx Cholecystectomy: Yes Hx Coronary Stent: Yes - ANESTHESIA Hx Anesthesia: Yes Hx Anesthesia Reactions: No Hx Malignant Hyperthermia: No Meds Home Medications: Home Medication List Medication Instructions Recorded Confirmed Type Ferric Sodium Gluconat Complex 125 mg IVPB MWF vial 04/04/17 Rx [Ferrlecit] amLODIPine [Norvasc] 10 mg PO DAILY tab 04/04/17 Rx Allergies/Adverse Reactions: Allergies Allergy/AdvReac Type Severity Reaction Status Date / Time ketorolac tromethamine Allergy RASH Verified 03/19/17 05:51 [From Toradol] latex Allergy RASH Verified 03/19/17 05:51 morphine Allergy RASH Verified 03/19/17 05:51 tramadol Allergy RASH Verified 03/19/17 05:51 - Medications Medications: Current Medications Acetaminophen (Tylenol 325mg Tab) 650 mg PO Q6 PRN PRN Reason: Fever >100.4 F Acetaminophen (Tylenol 325mg Tab) 650 mg PO Q6 PRN PRN Reason: Fever >100.4 F Amlodipine Besylate (Norvasc) 10 mg PO DAILY [facility] Last Admin: 04/04/17 11:34 Dose: Not Given Calcium Acetate (Phoslo) 667 mg PO TIDCC [facility] Last Admin: 04/04/17 18:37 Dose: 667 mg Clonidine HCl (Catapres-Tts3 0.3 Mg/24 Hr) 1 patch TD Q7D@1000 [facility] Docusate Sodium (Colace) 100 mg PO TID [facility] Last Admin: 04/04/17 18:37 Dose: 100 mg Epoetin James (Procrit) 10,000 unit IV MWF [facility] Last Admin: 04/04/17 14:40 Dose: 10,000 unit Famotidine (Pepcid) 20 mg IVP DAILY [facility] Last Admin: 04/04/17 11:34 Dose: Not Given Ferric Sodium Gluconate Complex (Ferrlecit) 125 mg IVPB MWF [facility] Stop: 04/12/17 13:01 Last Admin: 04/04/17 14:41 Dose: 125 mg Heparin Sodium (Porcine) (Heparin) 5,000 units SC Q12 [facility] Last Admin: 04/04/17 22:23 Dose: Not Given Hydromorphone HCl (Dilaudid) 0.5 mg IVP Q4H PRN PRN Reason: Pain, severe (8-10) Last Admin: 04/04/17 14:36 Dose: 0.5 mg Piperacillin Sod/Tazobactam Sod (Zosyn 2.25 Gm Iv Premix) 2.25 gm in 50 mls @ 100 mls/hr IVPB Q8 [facility] Last Admin: 04/04/17 22:23 Dose: Not Given Vancomycin HCl (Vancocin 750mg/D5w 150 Ml) 150 mls @ 100 mls/hr IVPB MWF [facility] Stop: 04/09/17 10:01 Last Admin: 04/04/17 11:34 Dose: Not Given Insulin Detemir (Levemir) 12 unit SC Q12 [facility] Last Admin: 04/04/17 22:21 Dose: 12 unit Insulin Human Regular (Novolin R) 0 unit SC ACHS [facility] PRN Reason: Protocol Last Admin: 04/04/17 22:20 Dose: 3 unit Metoclopramide HCl (Reglan) 10 mg PO ONCE KAREN Nifedipine (Procardia Xl) 60 mg PO BID [facility] Last Admin: 04/04/17 18:37 Dose: 60 mg Oxycodone/Acetaminophen (Percocet 5/325 Mg Tab) 1 tab PO Q4H PRN PRN Reason: Pain, moderate (4-7) Stop: 04/07/17 22:52 Last Admin: 04/04/17 23:01 Dose: 1 tab Pneumococcal Polyvalent Vaccine (Pneumovax 23 Vaccine) 0.5 ml IM .ONCE ONE Stop: 04/07/17 10:01 Zolpidem Tartrate (Ambien) 10 mg PO HS PRN PRN Reason: Insomnia Last Admin: 04/03/17 22:49 Dose: 10 mg Results - Vital Signs Recent Vital Signs: Last Vital Signs Temp 100.5 F H 04/04/17 23:04 Pulse 114 H 04/04/17 23:04 Resp 24 04/04/17 23:04 BP 171/79 H 04/04/17 17:30 Pulse Ox 96 04/04/17 23:04 - Labs Result Diagrams: 04/04/17 14:23 04/04/17 14:23 Labs: Laboratory Results - last 24 hr 04/04/17 04/04/17 04/04/17 07:25 08:47 11:03 WBC RBC Hgb Hct MCV MCH MCHC RDW Plt Count MPV Neut % (Auto) Lymph % (Auto) [place] % (Auto) Eos % (Auto) Baso % (Auto) Neut # Lymph # [place] # Eos # Baso # Sodium Potassium Chloride Carbon Dioxide Anion Gap BUN Creatinine Est GFR ( Amer) Est GFR (Non-Af Amer) POC Glucose (mg/dL) 274 H 335 H Random Glucose Calcium Total Bilirubin AST ALT Alkaline Phosphatase Total Protein Albumin Globulin Albumin/Globulin Ratio Urine Color Yellow Urine Clarity Hazy Urine pH 7.0 Ur Specific [place] 1.009 Urine Protein 2+ H Urine Glucose (UA) 3+ H Urine Ketones Negative Urine Blood Negative Urine Nitrate Negative Urine Bilirubin Negative Urine Urobilinogen Normal Ur Leukocyte Esterase 3+ H Urine WBC (Auto) 101 H Urine RBC (Auto) 11 H Ur Squamous Epith Cells 13 H Urine Bacteria Rare 04/04/17 04/04/17 04/04/17 14:23 14:23 18:19 WBC 8.5 RBC 2.47 L Hgb 7.6 L Hct 23.2 L MCV 93.9 MCH 30.6 MCHC 32.6 L RDW 14.9 H Plt Count 308 MPV 7.6 Neut % (Auto) 74.4 Lymph % (Auto) 11.0 L [place] % (Auto) 4.8 Eos % (Auto) 8.8 H Baso % (Auto) 1.0 Neut # 6.3 Lymph # 0.9 L [place] # 0.4 Eos # 0.7 Baso # 0.1 Sodium 135 Potassium 5.2 Chloride 94 L Carbon Dioxide 23 Anion Gap 24 H BUN 71 H Creatinine 7.3 H D Est GFR ( Amer) 8 Est GFR (Non-Af Amer) 7 POC Glucose (mg/dL) 238 H Random Glucose 364 H Calcium 7.1 L Total Bilirubin 0.5 AST 18 ALT 29 Alkaline Phosphatase 142 H D Total Protein 7.4 Albumin 3.7 Globulin 3.7 Albumin/Globulin Ratio 1.0 Urine Color Urine Clarity Urine pH Ur Specific [place] Urine Protein Urine Glucose (UA) Urine Ketones Urine Blood Urine Nitrate Urine Bilirubin Urine Urobilinogen Ur Leukocyte Esterase Urine WBC (Auto) Urine RBC (Auto) Ur Squamous Epith Cells Urine Bacteria 04/04/17 21:40 WBC RBC Hgb Hct MCV MCH MCHC RDW Plt Count MPV Neut % (Auto) Lymph % (Auto) [place] % (Auto) Eos % (Auto) Baso % (Auto) Neut # Lymph # [place] # Eos # Baso # Sodium Potassium Chloride Carbon Dioxide Anion Gap BUN Creatinine Est GFR ( Amer) Est GFR (Non-Af Amer) POC Glucose (mg/dL) 357 H Random Glucose Calcium Total Bilirubin AST ALT Alkaline Phosphatase Total Protein Albumin Globulin Albumin/Globulin Ratio Urine Color Urine Clarity Urine pH Ur Specific [place] Urine Protein Urine Glucose (UA) Urine Ketones Urine Blood Urine Nitrate Urine Bilirubin Urine Urobilinogen Ur Leukocyte Esterase Urine WBC (Auto) Urine RBC (Auto) Ur Squamous Epith Cells Urine Bacteria Assessment & Plan - Assessment and Plan (Free Text) Assessment: ESRD ON HD M W F AND SAT .. TO BE C/O ANEMIA OF CKD .. WAS GIVEN EPO 10.000 IU PLUS FERRLICIT 125 MG ON HD MULTIPLE CO MORBIDITIES P : C/O CURRENT CARE - Date & Time Date: 04/04/17 Time: 13:00
[2017-04-05] MEDS: Oxycodone/Acetaminophen 5/325 mg Tab PO PRN ×2 (03:41→10:37)
[2017-04-05] MEDS: Piperacill/Tazo 2.25gm in Dex 2.25 GM/50 ML BAG IVPB SCH ×2 (06:05→13:38)
[2017-04-05] MEDS: (Novolin R) Insulin Human Regular 100 units/ml vial SC SCH ×2 (08:01→13:33)
--- NOTE | 2017-04-05 08:07 | HP ---
HISTORY OF PRESENT ILLNESS: This is a 31-year-old female with history of chronic renal failure, on hemodialysis. Chief complaint loss of consciousness, hyperglycemia. Patient came to the ER with glucose with improvement. The patient has a history of drug-seeking behavior. Uncooperative patient. primary doctor because of her behavior. PHYSICAL EXAMINATION: GENERAL: The patient is awake, alert and oriented. VITAL SIGNS: Temperature 98, pulse 90. HEENT: Within normal limits. NECK: Supple. CHEST: Symmetrical. HEART: Regular. ABDOMEN: Soft. EXTREMITIES: No edema. IMPRESSION: Hyperglycemia, chronic renal failure. Patient on supportive care. Dialysis. Jhonny Srivastava MD
[2017-04-05 08:24] VITALS: RESP 20
[2017-04-05 10:01] VITALS: BP 148/91; PULSE 101; TEMP 98; O2SAT 100
[2017-04-05] MEDS: NIFEdipine 60 mg ER Tab PO SCH ×2 (10:37→10:40)
[2017-04-05] MEDS: Insulin Detemir 100 units/ml Vial (Levemir) SC SCH (10:38)
--- NOTE | 2017-04-05 11:23 | CP.PCM.PN ---
Subjective - Date & Time of Evaluation Date of Evaluation: 04/05/17 Time of Evaluation: 11:00 - Subjective Subjective: PGY3 on medicine Dr. Srivastava service: Pt seen and examined at bedside with attending. Pt again refused to have IO taken out bedside and requests pain medication for the right leg. Pt was belligerent and shouting at attending. ROS and physical exam unobtainable due to pt uncooperative. At 1325, Dr. Pina at bedside removed IO access. Pt tolerated procedure well. No hematoma noted after removal of IO. Per Dr. Pina, IO was somewhat mobile and was not anchored at the time of removal. Keflex 250mg PO q12H #10 prescription was given to patient. Instructed to take after dialysis. Pt also given script for one dose of Gentamicin 80mg IV to be given with dialysis on for UTI. Objective - Vital Signs/Intake and Output Vital Signs (last 24 hours): Temp Pulse Resp BP Pulse Ox 98 F 101 H 20 148/91 H 100 04/05/17 10:01 04/05/17 10:01 04/05/17 10:01 04/05/17 10:01 04/05/17 10:01 Intake and Output: 04/05/17 04/05/17 06:59 18:59 Intake Total 400 Balance 400 - Medications Medications: Current Medications Acetaminophen (Tylenol 325mg Tab) 650 mg PO Q6 PRN PRN Reason: Fever >100.4 F Acetaminophen (Tylenol 325mg Tab) 650 mg PO Q6 PRN PRN Reason: Fever >100.4 F Amlodipine Besylate (Norvasc) 10 mg PO DAILY [facility] Last Admin: 04/05/17 10:41 Dose: Not Given Calcium Acetate (Phoslo) 667 mg PO TIDCC [facility] Last Admin: 04/05/17 09:15 Dose: Not Given Clonidine HCl (Catapres-Tts3 0.3 Mg/24 Hr) 1 patch TD Q7D@1000 [facility] Docusate Sodium (Colace) 100 mg PO TID [facility] Last Admin: 04/05/17 10:40 Dose: Not Given Epoetin James (Procrit) 10,000 unit IV MWF [facility] Last Admin: 04/04/17 14:40 Dose: 10,000 unit Famotidine (Pepcid) 20 mg IVP DAILY [facility] Last Admin: 04/05/17 10:38 Dose: Not Given Ferric Sodium Gluconate Complex (Ferrlecit) 125 mg IVPB MWF [facility] Stop: 04/12/17 13:01 Last Admin: 04/04/17 14:41 Dose: 125 mg Heparin Sodium (Porcine) (Heparin) 5,000 units SC Q12 [facility] Last Admin: 04/05/17 10:37 Dose: Not Given Hydromorphone HCl (Dilaudid) 0.5 mg IVP Q4H PRN PRN Reason: Pain, severe (8-10) Last Admin: 04/04/17 14:36 Dose: 0.5 mg Piperacillin Sod/Tazobactam Sod (Zosyn 2.25 Gm Iv Premix) 2.25 gm in 50 mls @ 100 mls/hr IVPB Q8 [facility] Last Admin: 04/05/17 06:05 Dose: Not Given Vancomycin HCl (Vancocin 750mg/D5w 150 Ml) 150 mls @ 100 [facility]ls[facility] Stop: 04/09/17 10:01 Last Admin: 04/04/17 11:34 Dose: Not Given Insulin Detemir (Levemir) 12 unit SC Q12 [facility] Last Admin: 04/05/17 10:38 Dose: 12 unit Insulin Human Regular (Novolin R) 0 unit SC ACHS [facility] PRN Reason: Protocol Last Admin: 04/05/17 08:01 Dose: Not Given Metoclopramide HCl (Reglan) 10 mg PO ONCE KAREN Nifedipine (Procardia Xl) 60 mg PO BID [facility] Last Admin: 04/05/17 10:40 Dose: Not Given Oxycodone/Acetaminophen (Percocet 5/325 Mg Tab) 1 tab PO Q4H PRN PRN Reason: Pain, moderate (4-7) Stop: 04/07/17 22:52 Last Admin: 04/05/17 10:37 Dose: 1 tab Pneumococcal Polyvalent Vaccine (Pneumovax 23 Vaccine) 0.5 ml IM .ONCE ONE Stop: 04/07/17 10:01 Zolpidem Tartrate (Ambien) 10 mg PO HS PRN PRN Reason: Insomnia Last Admin: 04/03/17 22:49 Dose: 10 mg - Labs Labs: 04/04/17 14:23 04/04/17 14:23 - Constitutional Appears: Combative - Head Exam Head Exam: ATRAUMATIC - Neurological Exam Neurological Exam: Alert, Awake, Oriented x3 - Psychiatric Exam Psychiatric exam: Agitated Assessment and Plan - Assessment and Plan (Free Text) Assessment: ESRD on HD- [facility] Nephrology consult, Dr. Phillips help appreciated Last HD 04/02/17 no complications Continue Phoslo DC today with Keflex 250mg PO q12H for 5 days. Gram negative tanner in urine Low grade fever last night at 100.5, one episode. Urine culture positive for gram negative tanner. Will give Gentamycin 80mg in HD 04/[address] Pinto. Diabetic and diabetic gastroparesis Continue Levemir 12 units SQ Q12H at home with premeal sliding scale Management as per Dr. Srivastava
[2017-04-05] MEDS ORDERED: Lidocaine 1% Inj (20ml) IV ONE ×2 (13:13)
[2017-04-07] MEDS ORDERED: Pneumococcal 23-Valent Vaccine IM ONE (10:00)
== END 2017-04-05 14:45 | disposition home or self-care (01) ==
LOC: C.ER 07:46 → C.9E 11:12 → C.5T 19:31
PROVIDERS: ADMIT Internal Medicine Pulmonary Disease; ATTEND Internal Medicine Pulmonary Disease
DX: E11.649 Type 2 diabetes mellitus with hypoglycemia without coma (principal); I13.2 Hypertensive heart and chronic kidney disease with heart failure and with stage 5 chronic kidney disease, or end stage renal disease; I50.9 Heart failure, unspecified; N18.6 End stage renal disease; Z79.4 Long term (current) use of insulin; E11.22 Type 2 diabetes mellitus with diabetic chronic kidney disease; D63.1 Anemia in chronic kidney disease; Z99.2 Dependence on renal dialysis
CPT/HCPCS: 36415; 71010; 80053; 81001; 82550; 82553; 82948; 83880; 84145; 84484; 85025; 87040; 87086; 93005; 96372; 99285; G0378; J1170; J1200; J1644; J2916; Q4081

== ENCOUNTER 2017-04-19 11:07 | Emergency (ER) | payer MEDICAID ==
[2017-04-19 11:08] VITALS: BMI 21.9
[2017-04-19 11:17] VITALS: RESP 18
[2017-04-19] MEDS ORDERED: Sodium Chloride 0.9% 1,000 ML IV ONE (11:31)
[2017-04-19] MEDS ORDERED: DiphenhydrAMINE 50 mg/ml Inj IVP STA ×3 (11:53→14:20)
[2017-04-19] MEDS ORDERED: Sodium Chloride 0.9% 250 ML IV ONE (11:53)
[2017-04-19] MEDS ORDERED: DiphenhydrAMINE 50 mg/ml Inj ONE ×3 (11:56→14:18)
[2017-04-19 12:01] LABS: BASO # 0.1 K/uL (0.0-0.2); BASO % 1.2 % (0.0-2.0); EOS # 0.5 K/uL (0.0-0.7); EOS % 6.4 % (0.0-4.0); HEMATOCRIT 32.5 % (34.0-47.0); LYMPH # 0.5 K/uL (1.0-4.3); LYMPH % 7.7 % (20.0-40.0); MEAN CELL VOLUME 95.9 fL (81.0-99.0); MEAN CORPUSCULAR HEMOGLOBIN 31.2 pg (27.0-31.0); MEAN CORPUSCULAR HGB CONC 32.5 g/dL (33.0-37.0); MEAN PLATELET VOLUME 7.8 fL (7.2-11.7); MONO # 0.5 K/uL (0.0-0.8); PLATELET COUNT 274 K/uL (130-400); RED CELL DISTRIBUTION WIDTH 16.3 % (11.5-14.5); WHITE BLOOD COUNT 7.1 K/uL (4.8-10.8)
[2017-04-19 12:15] LABS: CHLORIDE 92 mmol/L (98-107); SODIUM 137 mmol/L (132-148)
[2017-04-19 12:16] LABS: POTASSIUM 4.3 mmol/L (3.6-5.2)
[2017-04-19 12:17] LABS: BILIRUBIN,TOTAL 0.8 mg/dL (0.2-1.3); GFR AFRICAN-AMERICAN 22
[2017-04-19 12:18] LABS: ALKALINE PHOSPHATASE 190 U/L (38-126); ALT/SGPT 23 U/L (9-52); AST/SGOT 25 U/L (14-36); BLOOD UREA NITROGEN 17 mg/dL (7-17); CALCIUM 8.5 mg/dl (8.6-10.4); CARBON DIOXIDE 28 mmol/L (22-30); GLUCOSE,RANDOM 161 mg/dL (65-105); TOTAL PROTEIN 9.4 g/dL (6.3-8.3)
[2017-04-19 12:32] LABS: BASOPHIL 1 % (0-2); EOSINOPHIL 3 % (0-4); NEUTROPHIL 74 % (50-75); TOTAL CELLS COUNTED 100
[2017-04-19 14:13] LABS: INR 1.2
--- NOTE | 2017-04-19 14:22 | C.PDOC ---
History Of Present Illness 31 y/o female presents to ED with c/o epigastric abdominal pain, nausea, and vomiting since this morning. Patient has known history of gastroparesis. Patient s/p full dialysis this morning. She denies SOB, chest pain, or fever. Time Seen by Provider: 04/19/17 11:18 Chief Complaint (Nursing): Abdominal Pain History Per: Patient History/Exam Limitations: no limitations Onset/Duration Of Symptoms: Hrs Current Symptoms Are (Timing): Still Present Severity: Moderate Location Of Pain/Discomfort: Epigastric Radiation Of Pain To:: None Quality Of Discomfort: "Pain" Associated Symptoms: Nausea, Vomiting. denies: Fever, Chills, Diarrhea, Urinary Symptoms Abnormal Vaginal Bleeding: No Past Medical History Reviewed: Historical Data, Nursing Documentation, Vital Signs Vital Signs: Last Vital Signs Temp 98.0 F 04/19/17 14:30 Pulse 86 04/19/17 14:30 Resp 18 04/19/17 14:30 BP 148/64 04/19/17 14:30 Pulse Ox 100 04/23/17 18:21 - Medical History PMH: Anemia, Anxiety, Asthma, Bronchitis, CHF (Florid), Diabetes, Fractures ( Sep 2012 L foot), Gastritis, Gastrointestinal Ulcer (gastroparesis), Gall Bladder Disease (gallbladder removed), Hepatitis, HTN, Hypercholesterolemia, Hyperthyroidism, Hypothyroidism, Kidney Stones, Pancreatitis (chronic), Peripheral Edema, Pneumonia, End Stage Renal Disease, Chronic Kidney Disease, Seizures, Sleep Apnea, Chronic Pain Surgical History: Cholecystectomy, Coronary Stent - [facility] Procedures ASSISTANCE WITH RESPIRATORY VENTILATION, 24-96 HRS, CPAP (11/27/16) CAUTERY TO STOP EPISTAX (03/22/14) CENTRAL VENOUS CATHETER PLACEMENT WITH GUIDANCE (11/06/14) DIALYSIS ARTERIOVENOSTOM (01/10/14) DRAINAGE OF RIGHT FOOT SKIN, EXTERNAL APPROACH (07/17/16) DRAINAGE OF RIGHT LOWER ARM SKIN, EXTERNAL APPROACH (05/25/16) ESOPHAGOGASTRODUODENOSCOPY [EGD] W/CLOSED BIOPSY (03/03/14) EXCISION OF STOMACH, ENDO, DIAGN (05/09/16) EXTIRPATE MATTER FROM R LOW ARM SUBCU/FASCIA, PERC (05/25/16) EXTRACTION OF RIGHT FOOT SKIN, EXTERNAL APPROACH (05/25/16) FLEXIBLE SIGMOIDOSCOPY (10/26/14) FLUOROSCOPY OF R JUGULAR VEIN USING L OSM CONTRAST, GUIDANCE (12/13/15) FLUOROSCOPY OF RIGHT SUBCLAVIAN VEIN, GUIDANCE (08/07/16) HEMODIALYSIS (04/05/15) INJECT INSULIN (12/23/12) INJECT/INFUSE ELECTROLYT (12/23/12) INJECT/INFUSE NEC (01/17/15) INSERT INFUSION DEV IN R INT JUGULAR VEIN, PERC (02/23/16) INSERTION OF INFUSION DEV INTO R BASILIC VEIN, PERC APPROACH (04/18/16) INSERTION OF INFUSION DEV INTO R BRACH VEIN, PERC APPROACH (02/19/17) INSERTION OF INFUSION DEV INTO R SUBCLAV VEIN, PERC APPROACH (08/29/16) INSERTION OF INFUSION DEV INTO SUP VENA CAVA, PERC APPROACH (05/25/16) INSERTION OF INFUSION DEVICE INTO R ATRIUM, PERC APPROACH (12/13/15) INSERTION OF VAD INTO CHEST SUBCU/FASCIA, OPEN APPROACH (12/13/15) MEASURE OF CARDIAC SAMPL & PRESSURE, L HEART, PERC APPROACH (10/09/16) OTHER ENDOSCOPY OF SM INTEST (08/25/14) PACKED CELL TRANSFUSION (10/26/14) PERFORMANCE OF URINARY FILTRATION, MULTIPLE (03/19/17) PERFORMANCE OF URINARY FILTRATION, SINGLE (11/27/16) PLAIN RADIOGRAPHY OF LEFT HEART USING OTHER CONTRAST (10/09/16) PLAIN RADIOGRAPHY OF MULT COR ART USING OTH CONTRAST (10/09/16) PLICATION OF VENA CAVA (03/22/14) POST NASAL PAC FOR EPIST (03/22/14) REMOVAL OF VAD FROM TRUNK SUBCU/FASCIA, OPEN APPROACH (02/23/16) [facility]IN [facility] SHUNT (03/03/14) THERAPEUTIC ERYTHROCYTAPHERESIS (10/26/14) TRANSFUSE NONAUT RED BLOOD CELLS IN PERIPH VEIN, PERC (02/19/17) ULTRASONOGRAPHY OF RIGHT AND LEFT HEART, TRANSESOPHAGEAL (02/19/17) ULTRASONOGRAPHY OF RIGHT SUBCLAVIAN VEIN, GUIDANCE (08/29/16) ULTRASONOGRAPHY OF RIGHT UPPER EXTREMITY VEINS, GUIDANCE (02/19/17) VACCINATION NEC (10/26/14) VENOUS CATHETERIZATION FOR RENAL DIALYSIS (03/03/14) Family History: States: No Known Family Hx - Social History Hx Tobacco Use: No Hx Alcohol Use: No Hx Substance Use: Yes - Immunization History Hx Tetanus Toxoid Vaccination: No Hx Influenza Vaccination: Yes Hx Pneumococcal Vaccination: Yes Review Of Systems Except As Marked, All Systems Reviewed And Found Negative. Constitutional: Negative for: Fever, Chills ENT: Negative for: Throat Pain Cardiovascular: Negative for: Chest Pain Respiratory: Negative for: Cough, Shortness of Breath, Wheezing Gastrointestinal: Positive for: Nausea, Vomiting, Abdominal Pain. Negative for : Diarrhea Skin: Negative for: Rash Neurological: Negative for: Headache, Dizziness Physical Exam - Physical Exam Appears: Well, Non-toxic, Other (in moderate pain, actively vomiting - bilious vomit) Skin: Warm, Dry, Diaphoretic Head: Normacephalic Oral Mucosa: Moist Cardiovascular: Rhythm Regular (tachycardic) Respiratory: Normal Breath Sounds, No Accessory Muscle Use, No Rales, No Rhonchi , No Wheezing Gastrointestinal/Abdominal: Bowel Sounds, Soft, Tenderness (epigastric and LUQ TTP), No Guarding, No Rebound Back: Normal Inspection, No CVA Tenderness Extremity: Normal ROM, Capillary Refill (< 2 sec all digits), Other (LUE AV fistuls with palpable thrill) Extremity: Bilateral: Normal Color And Temperature Neurological/Psych: Oriented x3, Normal Speech, Normal Cognition ED Course And Treatment - Laboratory Results Result Diagrams: 04/19/17 11:57 04/19/17 11:57 O2 Sat by Pulse Oximetry: 100 (RA) Pulse Ox Interpretation: Normal Progress Note: Blood work ordered and reviewed. Patient given IV zofran, IV dilaudid/IV benadryl (x3). Small IV NS bolus (250ml) given. Reevaluation Time: 14:45 Reassessment Condition: Improved (Patient reassessed, is currently resting comfortably and states she is feeling much better and would like to be discharged home. On exam, abdomen is soft and nontender, and vitals are WNL. Rx given for Percocet for 5 days, as patient states she has no current PMD and ran out of her pain meds. However patient instructed to follow up with Dr. Edilia Sexton in 1-2 days for further eval and future pain medications. She understands she should return to ED if symptoms worsen/return.) Disposition Counseled Patient/Family Regarding: Studies Performed, Diagnosis, Need For Followup, Rx Given - Disposition Referrals: [facility] [Outside] Disposition: HOME/ ROUTINE Disposition Time: 14:30 Condition: STABLE Additional Instructions: FOLLOW UP WITH YOUR DOCTOR/CLINIC IN 1-2 DAYS USE MEDICATIONS NEEDED RETURN TO ER IF SYMPTOMS WORSEN Prescriptions: Ondansetron [Zofran Odt] 4 mg PO Q8 PRN #15 odt PRN Reason: Nausea/Vomiting oxyCODONE/Acetaminophen [Percocet 5/325 mg Tab] 1 tab PO QID PRN #20 tab PRN Reason: Pain Instructions: Diabetic Gastroparesis (DC), Chronic Pain (ED) Forms: [employer] (Malay) Print Language: SYRIAC - Clinical Impression Clinical Impression: 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 - Scribe Statement The provider has reviewed the documentation as recorded by the Arun Cummings Provider Attestation: All medical record entries made by the Arun were at my direction and personally dictated by me. I have reviewed the chart and agree that the record accurately reflects my personal performance of the history, physical exam, medical decision making, and the department course for this patient. I have also personally directed, reviewed, and agree with the discharge instructions and disposition.
[2017-04-19 14:31] VITALS: BP 148/64; PULSE 86; TEMP 98
[2017-04-19 14:44] VITALS: O2SAT 100
== END 2017-04-19 14:35 | disposition home or self-care (01) ==
LOC: C.ER 11:07
DX: E11.43 Type 2 diabetes mellitus with diabetic autonomic (poly)neuropathy (principal); K31.84 Gastroparesis
CPT/HCPCS: 80053; 82009; 83690; 83930; 85025; 85610; 85730; 96361; 96374; 96375; 96376; 99284; C9113; J1170; J1200; J2405; J7040

== ENCOUNTER 2017-05-06 21:46 | Emergency (ER) | payer MEDICAID ==
[2017-05-06 21:47] VITALS: BMI 21.9
[2017-05-06 22:04] VITALS: PULSE 88; TEMP 98.7; O2SAT 100
[2017-05-06] MEDS ORDERED: guaiFENesin 100 mg/5 ml Syrup UD PO STA (22:22)
--- NOTE | 2017-05-06 22:24 | C.PDOC ---
History Of Present Illness 31 year old female who presents to the ER with a complaint of a vague dry nonproductive cough for the last 2 days. Patient states she has positive sick contacts at home. Patient usually has dialysis on Sunday, Sunday, Sunday, Sunday, and notes she had dialysis yesterday; patient has good compliance with her medication. Denies fever or chills. Time Seen by Provider: 05/06/17 22:12 Chief Complaint (Nursing): Cough, Cold, Congestion History Per: Patient History/Exam Limitations: no limitations Onset/Duration Of Symptoms: Days Current Symptoms Are (Timing): Still Present Location Of Pain: None Sick Contacts (Context): Family Member(s) Associated Symptoms: Cough. denies: Fever, Chills, Sputum, Nausea, Vomiting Ear Symptoms: Bilateral: None Recent travel outside of the [place]: No Past Medical History Reviewed: Historical Data, Nursing Documentation, Vital Signs Vital Signs: Last Vital Signs Temp 98.7 F 05/06/17 21:56 Pulse 88 05/06/17 21:56 Resp 18 05/06/17 22:37 BP 185/97 H 05/06/17 22:37 Pulse Ox 100 05/06/17 22:37 - Medical History PMH: Anemia, Anxiety, Asthma, Bronchitis, CHF (Florid), Diabetes, Fractures ( Sep 2012 L foot), Gastritis, Gastrointestinal Ulcer (gastroparesis), Gall Bladder Disease (gallbladder removed), Hepatitis, HTN, Hypercholesterolemia, Hyperthyroidism, Hypothyroidism, Kidney Stones, Pancreatitis (chronic), Peripheral Edema, Pneumonia, End Stage Renal Disease, Chronic Kidney Disease, Seizures, Sleep Apnea, Chronic Pain Surgical History: Cholecystectomy, Coronary Stent - [facility] Procedures ASSISTANCE WITH RESPIRATORY VENTILATION, 24-96 HRS, CPAP (11/27/16) CAUTERY TO STOP EPISTAX (03/22/14) CENTRAL VENOUS CATHETER PLACEMENT WITH GUIDANCE (11/06/14) DIALYSIS ARTERIOVENOSTOM (01/10/14) DRAINAGE OF RIGHT FOOT SKIN, EXTERNAL APPROACH (07/17/16) DRAINAGE OF RIGHT LOWER ARM SKIN, EXTERNAL APPROACH (05/25/16) ESOPHAGOGASTRODUODENOSCOPY [EGD] W/CLOSED BIOPSY (03/03/14) EXCISION OF STOMACH, ENDO, DIAGN (05/09/16) EXTIRPATE MATTER FROM R LOW ARM SUBCU/FASCIA, PERC (05/25/16) EXTRACTION OF RIGHT FOOT SKIN, EXTERNAL APPROACH (05/25/16) FLEXIBLE SIGMOIDOSCOPY (10/26/14) FLUOROSCOPY OF R JUGULAR VEIN USING L OSM CONTRAST, GUIDANCE (12/13/15) FLUOROSCOPY OF RIGHT SUBCLAVIAN VEIN, GUIDANCE (08/07/16) HEMODIALYSIS (04/05/15) INJECT INSULIN (12/23/12) INJECT/INFUSE ELECTROLYT (12/23/12) INJECT/INFUSE NEC (01/17/15) INSERT INFUSION DEV IN R INT JUGULAR VEIN, PERC (02/23/16) INSERTION OF INFUSION DEV INTO R BASILIC VEIN, PERC APPROACH (04/18/16) INSERTION OF INFUSION DEV INTO R BRACH VEIN, PERC APPROACH (02/19/17) INSERTION OF INFUSION DEV INTO R SUBCLAV VEIN, PERC APPROACH (08/29/16) INSERTION OF INFUSION DEV INTO SUP VENA CAVA, PERC APPROACH (05/25/16) INSERTION OF INFUSION DEVICE INTO R ATRIUM, PERC APPROACH (12/13/15) INSERTION OF VAD INTO CHEST SUBCU/FASCIA, OPEN APPROACH (12/13/15) MEASURE OF CARDIAC SAMPL & PRESSURE, L HEART, PERC APPROACH (10/09/16) OTHER ENDOSCOPY OF SM INTEST (08/25/14) PACKED CELL TRANSFUSION (10/26/14) PERFORMANCE OF URINARY FILTRATION, MULTIPLE (03/19/17) PERFORMANCE OF URINARY FILTRATION, SINGLE (11/27/16) PLAIN RADIOGRAPHY OF LEFT HEART USING OTHER CONTRAST (10/09/16) PLAIN RADIOGRAPHY OF MULT COR ART USING OTH CONTRAST (10/09/16) PLICATION OF VENA CAVA (03/22/14) POST NASAL PAC FOR EPIST (03/22/14) REMOVAL OF VAD FROM TRUNK SUBCU/FASCIA, OPEN APPROACH (02/23/16) MELVIN KENNY DIALYSIS SHUNT (03/03/14) THERAPEUTIC ERYTHROCYTAPHERESIS (10/26/14) TRANSFUSE NONAUT RED BLOOD CELLS IN PERIPH VEIN, PERC (02/19/17) ULTRASONOGRAPHY OF RIGHT AND LEFT HEART, TRANSESOPHAGEAL (02/19/17) ULTRASONOGRAPHY OF RIGHT SUBCLAVIAN VEIN, GUIDANCE (08/29/16) ULTRASONOGRAPHY OF RIGHT UPPER EXTREMITY VEINS, GUIDANCE (02/19/17) VACCINATION NEC (10/26/14) VENOUS CATHETERIZATION FOR RENAL DIALYSIS (03/03/14) Family History: States: Unknown Family Hx - Social History Hx Tobacco Use: No Hx Alcohol Use: No Hx Substance Use: Yes - Immunization History Hx Tetanus Toxoid Vaccination: No Hx Influenza Vaccination: Yes Hx Pneumococcal Vaccination: Yes Review Of Systems Constitutional: Negative for: Fever, Chills Respiratory: Positive for: Cough. Negative for: Sputum Gastrointestinal: Negative for: Nausea, Vomiting Physical Exam - Physical Exam Appears: Non-toxic, No Acute Distress, Other (Healthy, less chronically ill appearing than usual) Skin: Normal Color, Warm, Dry Head: Atraumatic, Normacephalic Oral Mucosa: Moist Neck: Normal, Supple Chest: Symmetrical, No Tenderness Cardiovascular: Rhythm Regular, No Murmur Respiratory: Normal Breath Sounds, No Rales, No Rhonchi, No Wheezing Gastrointestinal/Abdominal: Soft, No Tenderness Neurological/Psych: Oriented x3, Normal Speech, Normal Cognition ED Course And Treatment O2 Sat by Pulse Oximetry: 100 (Room air) Pulse Ox Interpretation: Normal Progress Note: Norvasc and robitussin administered. Medical Decision Making Medical Decision Making: mild viral bronchitis, scant cough, + sick contacts @ home. Not taking OTC cold meds for fear of non-diabetic cold meds are nauseating to her. clear lungs, pending HD in AM no w/u/CXR indicated. Disposition Doctor Will See Patient In The: Office Counseled Patient/Family Regarding: Studies Performed, Diagnosis - Disposition Referrals: Jesus Phillips MD [Staff Provider] - Disposition: HOME/ ROUTINE Disposition Time: 22:23 Condition: GOOD Additional Instructions: continue OTC cold meds for cough and congestion, even if not Diabetic preparations. Flu shot AFTER viral syndrome is resolved. Instructions: Acute Bronchitis (ED) Forms: [facility] (Kiswahili) - Clinical Impression Clinical Impression: Viral bronchitis - Scribe Statement The provider has reviewed the documentation as recorded by the Scribe Benjamín Gutiérrez All medical record entries made by the Scribe were at my direction and personally dictated by me. I have reviewed the chart and agree that the record accurately reflects my personal performance of the history, physical exam, medical decision making, and the department course for this patient. I have also personally directed, reviewed, and agree with the discharge instructions and disposition.
[2017-05-06] MEDS ORDERED: guaiFENesin 100 mg/5 ml Syrup UD ONE (22:27)
[2017-05-06 22:38] VITALS: BP 185/97; RESP 18
== END 2017-05-06 22:45 | disposition home or self-care (01) ==
LOC: C.ER 21:46
DX: J20.8 Acute bronchitis due to other specified organisms (principal)

== ENCOUNTER 2017-05-28 12:03 | Inpatient (IN) | payer MEDICAID ==
[2017-05-28 12:04] VITALS: BMI 21.9
[2017-05-28 13:27] LABS: BASO # 0.1 K/uL (0.0-0.2); BASO % 1.5 % (0.0-2.0); EOS # 1.8 K/uL (0.0-0.7); EOS % 20.2 % (0.0-4.0); HEMATOCRIT 31.9 % (34.0-47.0); LYMPH # 1.1 K/uL (1.0-4.3); LYMPH % 12.6 % (20.0-40.0); MEAN CELL VOLUME 95.5 fL (81.0-99.0); MEAN CORPUSCULAR HEMOGLOBIN 31.8 pg (27.0-31.0); MEAN CORPUSCULAR HGB CONC 33.3 g/dL (33.0-37.0); MEAN PLATELET VOLUME 8.5 fL (7.2-11.7); MONO # 0.6 K/uL (0.0-0.8); MONO % 6.5 % (0.0-10.0); PLATELET COUNT 242 K/uL (130-400); RED CELL DISTRIBUTION WIDTH 16.3 % (11.5-14.5)
[2017-05-28 13:40] LABS: POTASSIUM 4.4 mmol/L (3.6-5.2)
[2017-05-28 13:43] LABS: BILIRUBIN,TOTAL 0.6 mg/dL (0.2-1.3); TOTAL PROTEIN 8.9 g/dL (6.3-8.3)
[2017-05-28 14:24] LABS: EOSINOPHIL 18 % (0-4); NEUTROPHIL 54 % (50-75); TOTAL CELLS COUNTED 100
--- NOTE | 2017-05-28 15:32 | C.PDOC ---
History Of Present Illness 31 yr old female with PMHx of ESRD, presents to the ER with complaints of chronic general abdominal pain. Denies fever, nausea, vomiting, dysuria or incontinence. Time Seen by Provider: 05/28/17 13:00 Chief Complaint (Nursing): Abdominal Pain History Per: Patient History/Exam Limitations: no limitations Onset/Duration Of Symptoms: Days Past Medical History Reviewed: Historical Data, Nursing Documentation, Vital Signs Vital Signs: Last Vital Signs Temp 98.2 F 05/28/17 18:26 Pulse 98 H 05/28/17 18:26 Resp 18 05/28/17 18:26 BP 217/118 H 05/28/17 18:26 Pulse Ox 99 05/28/17 18:26 - Medical History PMH: Anemia, Anxiety, Asthma, Bronchitis, CHF (Florid), Diabetes, Fractures ( Sep 2012 L foot), Gastritis, Gastrointestinal Ulcer (gastroparesis), Gall Bladder Disease (gallbladder removed), Hepatitis, HTN, Hypercholesterolemia, Hyperthyroidism, Hypothyroidism, Kidney Stones, Pancreatitis (chronic), Peripheral Edema, Pneumonia, End Stage Renal Disease, Chronic Kidney Disease, Seizures, Sleep Apnea, Chronic Pain Surgical History: Cholecystectomy, Coronary Stent - [facility] Procedures ASSISTANCE WITH RESPIRATORY VENTILATION, 24-96 HRS, CPAP (11/27/16) CAUTERY TO STOP EPISTAX (03/22/14) CENTRAL VENOUS CATHETER PLACEMENT WITH GUIDANCE (11/06/14) DIALYSIS ARTERIOVENOSTOM (01/10/14) DRAINAGE OF RIGHT FOOT SKIN, EXTERNAL APPROACH (07/17/16) DRAINAGE OF RIGHT LOWER ARM SKIN, EXTERNAL APPROACH (05/25/16) ESOPHAGOGASTRODUODENOSCOPY [EGD] W/CLOSED BIOPSY (03/03/14) EXCISION OF STOMACH, ENDO, DIAGN (05/09/16) EXTIRPATE MATTER FROM R LOW ARM SUBCU/FASCIA, PERC (05/25/16) EXTRACTION OF RIGHT FOOT SKIN, EXTERNAL APPROACH (05/25/16) FLEXIBLE SIGMOIDOSCOPY (10/26/14) FLUOROSCOPY OF R JUGULAR VEIN USING L OSM CONTRAST, GUIDANCE (12/13/15) FLUOROSCOPY OF RIGHT SUBCLAVIAN VEIN, GUIDANCE (08/07/16) HEMODIALYSIS (04/05/15) INJECT INSULIN (12/23/12) INJECT/INFUSE ELECTROLYT (12/23/12) INJECT/INFUSE NEC (01/17/15) INSERT INFUSION DEV IN R INT JUGULAR VEIN, PERC (02/23/16) INSERTION OF INFUSION DEV INTO R BASILIC VEIN, PERC APPROACH (04/18/16) INSERTION OF INFUSION DEV INTO R BRACH VEIN, PERC APPROACH (02/19/17) INSERTION OF INFUSION DEV INTO R SUBCLAV VEIN, PERC APPROACH (08/29/16) INSERTION OF INFUSION DEV INTO SUP VENA CAVA, PERC APPROACH (05/25/16) INSERTION OF INFUSION DEVICE INTO R ATRIUM, PERC APPROACH (12/13/15) INSERTION OF VAD INTO CHEST SUBCU/FASCIA, OPEN APPROACH (12/13/15) MEASURE OF CARDIAC SAMPL & PRESSURE, L HEART, PERC APPROACH (10/09/16) OTHER ENDOSCOPY OF SM INTEST (08/25/14) PACKED CELL TRANSFUSION (10/26/14) PERFORMANCE OF URINARY FILTRATION, MULTIPLE (03/19/17) PERFORMANCE OF URINARY FILTRATION, SINGLE (11/27/16) PLAIN RADIOGRAPHY OF LEFT HEART USING OTHER CONTRAST (10/09/16) PLAIN RADIOGRAPHY OF MULT COR ART USING OTH CONTRAST (10/09/16) PLICATION OF VENA CAVA (03/22/14) POST NASAL PAC FOR EPIST (03/22/14) REMOVAL OF VAD FROM TRUNK SUBCU/FASCIA, OPEN APPROACH (02/23/16) MELVIN KENNY DIALYSIS SHUNT (03/03/14) THERAPEUTIC ERYTHROCYTAPHERESIS (10/26/14) TRANSFUSE NONAUT RED BLOOD CELLS IN PERIPH VEIN, PERC (02/19/17) ULTRASONOGRAPHY OF RIGHT AND LEFT HEART, TRANSESOPHAGEAL (02/19/17) ULTRASONOGRAPHY OF RIGHT SUBCLAVIAN VEIN, GUIDANCE (08/29/16) ULTRASONOGRAPHY OF RIGHT UPPER EXTREMITY VEINS, GUIDANCE (02/19/17) VACCINATION NEC (10/26/14) VENOUS CATHETERIZATION FOR RENAL DIALYSIS (03/03/14) Family History: States: No Known Family Hx - Social History Hx Tobacco Use: No Hx Alcohol Use: No Hx Substance Use: Yes - Immunization History Hx Tetanus Toxoid Vaccination: No Hx Influenza Vaccination: Yes Hx Pneumococcal Vaccination: No Review Of Systems Except As Marked, All Systems Reviewed And Found Negative. Constitutional: Negative for: Fever Gastrointestinal: Positive for: Abdominal Pain. Negative for: Nausea, Vomiting Genitourinary: Negative for: Dysuria, Incontinence Physical Exam - Physical Exam Appears: Non-toxic, No Acute Distress Skin: Warm, Dry, No Rash Head: Atraumatic, Normacephalic Oral Mucosa: Moist Chest: Symmetrical, No Tenderness Cardiovascular: Rhythm Regular, No Murmur Respiratory: Normal Breath Sounds, No Rales, No Rhonchi, No Wheezing Gastrointestinal/Abdominal: Normal Exam, Soft, No Tenderness, No Guarding, No Rebound Neurological/Psych: Oriented x3, Normal Speech ED Course And Treatment - Laboratory Results Result Diagrams: 05/28/17 13:18 05/28/17 13:18 O2 Sat by Pulse Oximetry: 97 (RA) Pulse Ox Interpretation: Normal Medical Decision Making Medical Decision Making: PLAN: * CBC * CMP Disposition - Disposition Disposition: HOSPITALIZED Disposition Time: 13:05 Condition: STABLE - Clinical Impression Clinical Impression: Abdominal pain - Scribe Statement The provider has reviewed the documentation as recorded by the Kwadwoibjoan Zambrano Provider Attestation: All medical record entries made by the Kwadwoibjoan were at my direction and personally dictated by me. I have reviewed the chart and agree that the record accurately reflects my personal performance of the history, physical exam, medical decision making, and the department course for this patient. I have also personally directed, reviewed, and agree with the discharge instructions and disposition.
[2017-05-28] MEDS ORDERED: HYDROmorphone 1 mg/ml ISec IVP STA (16:49)
[2017-05-28] MEDS ORDERED: HYDROmorphone 0.5 mg/0.5 ml ISec ONE (16:58)
[2017-05-28] MEDS: DiphenhydrAMINE 50 mg/ml Inj IVP PRN ×2 (18:44→22:40)
--- NOTE | 2017-05-28 19:54 | CP.PCM.HP ---
Past Patient History - Infectious Disease Hx of Infectious Diseases: None - Tetanus Immunizations Tetanus Immunization: Unknown - Past Medical History & Family History Past Medical History?: Yes - Past Social History Smoking Status: Never Smoked - CARDIAC Hx Congestive Heart Failure: Yes Hx Hypercholesterolemia: Yes Hx Hypertension: Yes Hx Peripheral Edema: Yes - PULMONARY Hx Asthma: Yes Hx Bronchitis: Yes Hx Pneumonia: Yes Hx Sleep Apnea: Yes - NEUROLOGICAL Hx Seizures: Yes - HEENT Hx HEENT Problems: Yes Hx Cataracts: Yes Hx Glaucoma: Yes - RENAL Hx Chronic Kidney Disease: Yes Hx Dialysis: Yes Type of Dialysis Access: Left AV Shunt Date of Last Dialysis Treatment: 05/26/17 Hx Kidney Stones: Yes - ENDOCRINE/METABOLIC Hx Diabetes Mellitus Type 1: Yes Hx Hyperthyroidism: Yes Hx Hypothyroidism: Yes - HEMATOLOGICAL/ONCOLOGICAL Hx Anemia: Yes - INTEGUMENTARY Hx Dermatological Problems: Yes Other/Comment: DRY ITCHY SKIN ;multiple/generalized dark spots on skin. left toe blister - MUSCULOSKELETAL/RHEUMATOLOGICAL Hx Falls: No Hx Fractures: Yes (Sep 2012 L foot) - GASTROINTESTINAL Hx Gall Bladder Disease: Yes (gallbladder removed) Hx Gastritis: Yes Hx Pancreatitis: Yes (chronic) - PSYCHIATRIC Hx Anxiety: Yes Hx Substance Use: Yes - SURGICAL HISTORY Hx Cholecystectomy: Yes Hx Coronary Stent: Yes - ANESTHESIA Hx Anesthesia: Yes Hx Anesthesia Reactions: No Hx Malignant Hyperthermia: No Meds Allergies/Adverse Reactions: Allergies Allergy/AdvReac Type Severity Reaction Status Date / Time ketorolac tromethamine Allergy RASH Verified 05/28/17 12:25 [From Toradol] latex Allergy RASH Verified 05/28/17 12:25 morphine Allergy RASH Verified 05/28/17 12:25 tramadol Allergy RASH Verified 05/28/17 12:25 Results - Vital Signs Recent Vital Signs: Last Vital Signs Temp 98.2 F 05/28/17 18:26 Pulse 98 H 05/28/17 18:26 Resp 18 05/28/17 18:26 BP 217/118 H 05/28/17 18:26 Pulse Ox 99 05/28/17 18:26 - Labs Result Diagrams: 05/28/17 13:18 05/28/17 13:18 Labs: Laboratory Results - last 24 hr 05/28/17 05/28/17 05/28/17 13:18 13:18 18:00 WBC 9.0 RBC 3.34 L Hgb 10.6 L Hct 31.9 L MCV 95.5 MCH 31.8 H MCHC 33.3 RDW 16.3 H Plt Count 242 MPV 8.5 Neut % (Auto) 59.2 Lymph % (Auto) 12.6 L [place] % (Auto) 6.5 Eos % (Auto) 20.2 H Baso % (Auto) 1.5 Neut # 5.3 Lymph # 1.1 [place] # 0.6 Eos # 1.8 H Baso # 0.1 Neutrophils % (Manual) 54 Band Neutrophils % 1 Lymphocytes % (Manual) 16 L Monocytes % (Manual) 11 H Eosinophils % (Manual) 18 H Platelet Estimate Normal Hypochromasia (manual) Slight Anisocytosis (manual) Slight Sodium 137 Potassium 4.4 Chloride 96 L Carbon Dioxide 24 Anion Gap 22 H BUN 63 H Creatinine 7.4 H* Est GFR ( Amer) 8 Est GFR (Non-Af Amer) 6 POC Glucose (mg/dL) 182 H Random Glucose 134 H Calcium 8.0 L Total Bilirubin 0.6 AST 24 ALT 22 Alkaline Phosphatase 137 H D Total Protein 8.9 H Albumin 4.5 Globulin 4.5 H Albumin/Globulin Ratio 1.0
[2017-05-28] MEDS: NIFEdipine 60 mg ER Tab PO SCH (20:14)
[2017-05-28] MEDS: Insulin Detemir 100 units/ml Vial (Levemir) SC SCH (22:40)
--- NOTE | 2017-05-28 23:32 | CP.PCM.CON ---
History of Present Illness - History of Present Illness History of Present Illness: REASONS FOR CONSULT : ESRD ON HD M W F ESRD RELATED COMPLICATIONS PT WAS SEEN AND EXAMINED IN THE ER ALL PREVIOUS EMR REVIEWED .. LABS REVIEWED .. PT IS WELL KNOWN TO ME ON HD FOR MANY YEARS 31 yr old female with PMHx of ESRD, presents to the ER with complaints of chronic general abdominal pain. Denies fever, nausea, vomiting, dysuria or incontinence. Time Seen by Provider: 05/28/17 13:00 Chief Complaint (Nursing): Abdominal Pain History Per: Patient History/Exam Limitations: no limitations Onset/Duration Of Symptoms: Days Past Medical History Reviewed: Historical Data, Nursing Documentation, Vital Signs Vital Signs: Last Vital Signs Temp 98.2 F 05/28/17 18:26 Pulse 98 H 05/28/17 18:26 Resp 18 05/28/17 18:26 BP 217/118 H 05/28/17 18:26 Pulse Ox 99 05/28/17 18:26 - Medical History PMH: Anemia, Anxiety, Asthma, Bronchitis, CHF (Florid), Diabetes, Fractures ( Sep 2012 L foot), Gastritis, Gastrointestinal Ulcer (gastroparesis), Gall Bladder Disease (gallbladder removed), Hepatitis, HTN, Hypercholesterolemia, Hyperthyroidism, Hypothyroidism, Kidney Stones, Pancreatitis (chronic), Peripheral Edema, Pneumonia, End Stage Renal Disease, Chronic Kidney Disease, Seizures, Sleep Apnea, Chronic Pain Surgical History: Cholecystectomy, Coronary Stent - [facility] Procedures ASSISTANCE WITH RESPIRATORY VENTILATION, 24-96 HRS, CPAP (11/27/16) CAUTERY TO STOP EPISTAX (03/22/14) CENTRAL VENOUS CATHETER PLACEMENT WITH GUIDANCE (11/06/14) DIALYSIS ARTERIOVENOSTOM (01/10/14) DRAINAGE OF RIGHT FOOT SKIN, EXTERNAL APPROACH (07/17/16) DRAINAGE OF RIGHT LOWER ARM SKIN, EXTERNAL APPROACH (05/25/16) ESOPHAGOGASTRODUODENOSCOPY [EGD] W/CLOSED BIOPSY (03/03/14) EXCISION OF STOMACH, ENDO, DIAGN (05/09/16) EXTIRPATE MATTER FROM R LOW ARM SUBCU/FASCIA, PERC (05/25/16) EXTRACTION OF RIGHT FOOT SKIN, EXTERNAL APPROACH (05/25/16) FLEXIBLE SIGMOIDOSCOPY (10/26/14) FLUOROSCOPY OF R JUGULAR VEIN USING L OSM CONTRAST, GUIDANCE (12/13/15) FLUOROSCOPY OF RIGHT SUBCLAVIAN VEIN, GUIDANCE (08/07/16) HEMODIALYSIS (04/05/15) INJECT INSULIN (12/23/12) INJECT/INFUSE ELECTROLYT (12/23/12) INJECT/INFUSE NEC (01/17/15) INSERT INFUSION DEV IN R INT JUGULAR VEIN, PERC (02/23/16) INSERTION OF INFUSION DEV INTO R BASILIC VEIN, PERC APPROACH (04/18/16) INSERTION OF INFUSION DEV INTO R BRACH VEIN, PERC APPROACH (02/19/17) INSERTION OF INFUSION DEV INTO R SUBCLAV VEIN, PERC APPROACH (08/29/16) INSERTION OF INFUSION DEV INTO SUP VENA CAVA, PERC APPROACH (05/25/16) INSERTION OF INFUSION DEVICE INTO R ATRIUM, PERC APPROACH (12/13/15) INSERTION OF VAD INTO CHEST SUBCU/FASCIA, OPEN APPROACH (12/13/15) MEASURE OF CARDIAC SAMPL & PRESSURE, L HEART, PERC APPROACH (10/09/16) OTHER ENDOSCOPY OF SM INTEST (08/25/14) PACKED CELL TRANSFUSION (10/26/14) PERFORMANCE OF URINARY FILTRATION, MULTIPLE (03/19/17) PERFORMANCE OF URINARY FILTRATION, SINGLE (11/27/16) PLAIN RADIOGRAPHY OF LEFT HEART USING OTHER CONTRAST (10/09/16) PLAIN RADIOGRAPHY OF MULT COR ART USING OTH CONTRAST (10/09/16) PLICATION OF VENA CAVA (03/22/14) POST NASAL PAC FOR EPIST (03/22/14) REMOVAL OF VAD FROM TRUNK SUBCU/FASCIA, OPEN APPROACH (02/23/16) MELVIN KENNY DIALYSIS SHUNT (03/03/14) THERAPEUTIC ERYTHROCYTAPHERESIS (10/26/14) TRANSFUSE NONAUT RED BLOOD CELLS IN PERIPH VEIN, PERC (02/19/17) ULTRASONOGRAPHY OF RIGHT AND LEFT HEART, TRANSESOPHAGEAL (02/19/17) ULTRASONOGRAPHY OF RIGHT SUBCLAVIAN VEIN, GUIDANCE (08/29/16) ULTRASONOGRAPHY OF RIGHT UPPER EXTREMITY VEINS, GUIDANCE (02/19/17) VACCINATION NEC (10/26/14) VENOUS CATHETERIZATION FOR RENAL DIALYSIS (03/03/14) Family History: States: No Known Family Hx - Social History Hx Tobacco Use: No Hx Alcohol Use: No Hx Substance Use: Yes - Immunization History Hx Tetanus Toxoid Vaccination: No Hx Influenza Vaccination: Yes Hx Pneumococcal Vaccination: No Review Of Systems Except As Marked, All Systems Reviewed And Found Negative. Constitutional: Negative for: Fever Gastrointestinal: Positive for: Abdominal Pain. Negative for: Nausea, Vomiting Genitourinary: Negative for: Dysuria, Incontinence Past Patient History - Infectious Disease Hx of Infectious Diseases: None - Tetanus Immunizations Tetanus Immunization: Unknown - Past Medical History & Family History Past Medical History?: Yes - Past Social History Smoking Status: Never Smoked - CARDIAC Hx Congestive Heart Failure: Yes (Florid) Hx Hypercholesterolemia: Yes Hx Hypertension: Yes Hx Peripheral Edema: Yes - PULMONARY Hx Asthma: Yes Hx Bronchitis: Yes Hx Pneumonia: Yes Hx Sleep Apnea: Yes - NEUROLOGICAL Hx Seizures: Yes - HEENT Hx HEENT Problems: Yes Hx Cataracts: Yes Hx Glaucoma: Yes - RENAL Hx Chronic Kidney Disease: Yes Hx Kidney Stones: Yes - ENDOCRINE/METABOLIC Hx Hyperthyroidism: Yes Hx Hypothyroidism: Yes - HEMATOLOGICAL/ONCOLOGICAL Hx Anemia: Yes - INTEGUMENTARY Hx Dermatological Problems: Yes Other/Comment: DRY ITCHY SKIN ;multiple/generalized dark spots on skin. left toe blister - MUSCULOSKELETAL/RHEUMATOLOGICAL Hx Fractures: Yes (Sep 2012 L foot) - GASTROINTESTINAL Hx Gall Bladder Disease: Yes (gallbladder removed) Hx Gastritis: Yes Hx Pancreatitis: Yes (chronic) - PSYCHIATRIC Hx Anxiety: Yes Hx Substance Use: Yes - SURGICAL HISTORY Hx Cholecystectomy: Yes Hx Coronary Stent: Yes - ANESTHESIA Hx Anesthesia: Yes Hx Anesthesia Reactions: No Hx Malignant Hyperthermia: No Meds Allergies/Adverse Reactions: Allergies Allergy/AdvReac Type Severity Reaction Status Date / Time ketorolac tromethamine Allergy RASH Verified 05/28/17 12:25 [From Toradol] latex Allergy RASH Verified 05/28/17 12:25 morphine Allergy RASH Verified 05/28/17 12:25 tramadol Allergy RASH Verified 05/28/17 12:25 - Medications Medications: Current Medications Calcium Acetate (Phoslo) 667 mg PO TID [facility] Clonidine HCl (Catapres) 0.3 mg PO BID [facility] Last Admin: 05/28/17 19:46 Dose: 0.3 mg Diphenhydramine HCl (Benadryl) 25 mg IVP Q4 PRN PRN Reason: Itching / Pruritus Last Admin: 05/28/17 22:40 Dose: 25 mg Ergocalciferol (Drisdol 50,000 Intl Units Cap) 1 cap PO QWK [facility] Gabapentin (Neurontin) 300 mg PO BID [facility] Last Admin: 05/28/17 19:46 Dose: 300 mg Heparin Sodium (Porcine) (Heparin) 5,000 units SC Q12 [facility] Last Admin: 05/28/17 22:39 Dose: Not Given Hydromorphone HCl (Dilaudid) 2 mg IVP Q4H PRN PRN Reason: Pain, severe (8-10) Last Admin: 05/28/17 22:40 Dose: 2 mg Insulin Aspart (Novolog) 6 unit SC AC [facility] Insulin Detemir (Levemir) 12 unit SC Q12 [facility] Last Admin: 05/28/17 22:40 Dose: 12 unit Metoclopramide HCl (Reglan) 10 mg PO DAILY [facility] Nifedipine (Procardia Xl) 60 mg PO BID [facility] Last Admin: 05/28/17 20:14 Dose: Not Given Ondansetron HCl (Zofran Inj) 4 mg IVP Q6 PRN PRN Reason: Nausea/Vomiting Last Admin: 05/28/17 18:45 Dose: 4 mg Ondansetron HCl (Zofran Odt) 4 mg PO Q8 PRN PRN Reason: Nausea/Vomiting Results - Vital Signs Recent Vital Signs: Last Vital Signs Temp 98.2 F 05/28/17 18:26 Pulse 98 H 05/28/17 18:26 Resp 18 05/28/17 18:26 BP 217/118 H 05/28/17 18:26 Pulse Ox 97 05/28/17 23:24 - Labs Result Diagrams: 05/28/17 13:18 05/28/17 13:18 Labs: Laboratory Results - last 24 hr 05/28/17 05/28/17 05/28/17 13:18 13:18 18:00 WBC 9.0 RBC 3.34 L Hgb 10.6 L Hct 31.9 L MCV 95.5 MCH 31.8 H MCHC 33.3 RDW 16.3 H Plt Count 242 MPV 8.5 Neut % (Auto) 59.2 Lymph % (Auto) 12.6 L [place] % (Auto) 6.5 Eos % (Auto) 20.2 H Baso % (Auto) 1.5 Neut # 5.3 Lymph # 1.1 [place] # 0.6 Eos # 1.8 H Baso # 0.1 Neutrophils % (Manual) 54 Band Neutrophils % 1 Lymphocytes % (Manual) 16 L Monocytes % (Manual) 11 H Eosinophils % (Manual) 18 H Platelet Estimate Normal Hypochromasia (manual) Slight Anisocytosis (manual) Slight Sodium 137 Potassium 4.4 Chloride 96 L Carbon Dioxide 24 Anion Gap 22 H BUN 63 H Creatinine 7.4 H* Est GFR ( Amer) 8 Est GFR (Non-Af Amer) 6 POC Glucose (mg/dL) 182 H Random Glucose 134 H Calcium 8.0 L Total Bilirubin 0.6 AST 24 ALT 22 Alkaline Phosphatase 137 H D Total Protein 8.9 H Albumin 4.5 Globulin 4.5 H Albumin/Globulin Ratio 1.0 05/28/17 21:05 WBC RBC Hgb Hct MCV MCH MCHC RDW Plt Count MPV Neut % (Auto) Lymph % (Auto) [place] % (Auto) Eos % (Auto) Baso % (Auto) Neut # Lymph # [place] # Eos # Baso # Neutrophils % (Manual) Band Neutrophils % Lymphocytes % (Manual) Monocytes % (Manual) Eosinophils % (Manual) Platelet Estimate Hypochromasia (manual) Anisocytosis (manual) Sodium Potassium Chloride Carbon Dioxide Anion Gap BUN Creatinine Est GFR ( Amer) Est GFR (Non-Af Amer) POC Glucose (mg/dL) 175 H Random Glucose Calcium Total Bilirubin AST ALT Alkaline Phosphatase Total Protein Albumin Globulin Albumin/Globulin Ratio Assessment & Plan - Assessment and Plan (Free Text) Assessment: ESRD ON HD M W F .. WILL GIVE HD FIRST IN AM ANEMIA OF CKD .. H/H STABLE ELECTROLYTES ABN ,, NOW OK PRESENTED WITH EXACERBATION OF D GASTROPERESIS MULTIPLE CO MORBIDITIES P : HD IN AM C/O CURRENT CARE C/O PRESENT MEDS ORDERS WRITTEN - Date & Time Date: 05/28/17 Time: 14:00
[2017-05-29] MEDS: DiphenhydrAMINE 50 mg/ml Inj IVP PRN ×6 (02:13→22:45)
[2017-05-29] MEDS: Multivitamin Vitamin B Complex (Nephro-Vite) Tab PO SCH (09:06)
[2017-05-29] MEDS: (Novolog) Insulin Aspart, Recombinant 100 u/ml 10 ml vial SC SCH ×3 (09:06→16:30)
--- NOTE | 2017-05-29 09:54 | CP.PCM.PN ---
Subjective - Date & Time of Evaluation Date of Evaluation: 05/29/17 Time of Evaluation: 09:37 - Subjective Subjective: PGY-[address] Sexton's Service: Pt seen and examined at bedside. Nursing reports no acute events overnight. Patient found sleeping comfortably in bed. She reports pain well controlled on current pain regimen. She is for dialysis later this morning. No chest pain, palpitations, N/V/D. Objective - Vital Signs/Intake and Output Vital Signs (last 24 hours): Temp Pulse Resp BP Pulse Ox 97.9 F 80 20 114/81 95 05/29/17 07:00 05/29/17 07:00 05/29/17 07:00 05/29/17 07:00 05/29/17 07:00 - Medications Medications: Current Medications Calcium Acetate (Phoslo) 667 mg PO TID [facility] Clonidine HCl (Catapres) 0.3 mg PO BID [facility] Last Admin: 05/28/17 19:46 Dose: 0.3 mg Diphenhydramine HCl (Benadryl) 25 mg IVP Q4 PRN PRN Reason: Itching / Pruritus Last Admin: 05/29/17 06:31 Dose: 25 mg Ergocalciferol (Drisdol 50,000 Intl Units Cap) 1 cap PO QWK [facility] Gabapentin (Neurontin) 300 mg PO BID [facility] Last Admin: 05/28/17 19:46 Dose: 300 mg Heparin Sodium (Porcine) (Heparin) 5,000 units SC Q12 [facility] Last Admin: 05/28/17 22:39 Dose: Not Given Hydromorphone HCl (Dilaudid) 2 mg IVP Q4H PRN PRN Reason: Pain, severe (8-10) Last Admin: 05/29/17 06:30 Dose: 2 mg Insulin Aspart (Novolog) 6 unit SC AC [facility] Last Admin: 05/29/17 09:06 Dose: 6 unit Insulin Detemir (Levemir) 12 unit SC Q12 [facility] Last Admin: 05/28/17 22:40 Dose: 12 unit Metoclopramide HCl (Reglan) 10 mg PO DAILY [facility] Nifedipine (Procardia Xl) 60 mg PO BID [facility] Last Admin: 05/28/17 20:14 Dose: Not Given Ondansetron HCl (Zofran Inj) 4 mg IVP Q6 PRN PRN Reason: Nausea/Vomiting Last Admin: 05/29/17 02:13 Dose: 4 mg Ondansetron HCl (Zofran Odt) 4 mg PO Q8 PRN PRN Reason: Nausea/Vomiting Vitamin B Complex/Vit C/Folic Acid (Nephro-Vamshi) 1 tab PO 0800 KAREN Last Admin: 05/29/17 09:06 Dose: 1 tab - Labs Labs: 05/28/17 13:18 05/28/17 13:18 - Constitutional Appears: Non-toxic, No Acute Distress - Head Exam Head Exam: ATRAUMATIC, NORMOCEPHALIC - Eye Exam Eye Exam: EOMI. absent: Scleral icterus - ENT Exam ENT Exam: Mucous Membranes Dry - Respiratory Exam Respiratory Exam: Clear to Ausculation Bilateral, NORMAL BREATHING PATTERN. absent: Rales, Rhonchi, Wheezes - Cardiovascular Exam Cardiovascular Exam: RRR, +S1, +S2 - GI/Abdominal Exam GI & Abdominal Exam: Soft, Tenderness (mild diffuse), Normal Bowel Sounds - Extremities Exam Extremities Exam: absent: Normal Inspection Additional comments: Chronic skin findings noted on both legs Ulcer below left toenail - Neurological Exam Neurological Exam: Alert, Awake, Oriented x3 - Psychiatric Exam Psychiatric exam: Normal Affect, Normal Mood - Skin Skin Exam: Normal Color, Warm Assessment and Plan - Assessment and Plan (Free Text) Plan: ESRD on HD- MWF Fluid overloaded Consult: Dr. Beckman (help appreciated) Phoslo 667mg PO TID Nephro-Vamshi Ergocalciferol 50k units for Vit D deficiency History of diabetic gastroparesis BG elevated, will monitor and adjust Accuchecks QAC&HS Novolog ISS Levemir 12 units SQ Q12H Aspart 6 units SC AC Zofran 4 mg IV Q6 PRN Reglan 10 mg IV Q6 PRN Diluadid 2mg IV Q4H PRN Benadryl 25mg IV Q4H PRN HTN Urgency Max 217/118 - pressures now improved see below for full history Clonidine 0.3 mg PO BID Procardia XL 60 mg PO Q12H Hx of hypertensive cardiomyopathy KAMRAN 03/02/17: No evidence of endocarditis. LVEF WNL. Cardiac Catheterization on prior admission revealed patent coronaries; hypertensive cardiomyopahy EF: 45 Clonidine 0.3 mg PO BID Procardia XL 60 mg PO Q12H Lesion on Left Foot Dr. Cardenas consulted - f/u reccs Prophylactic Measure Heparin 5000 units SQ Q12H Pepcid 20 mg PO daily (renally dosed) Escobar Meek PGY-2 All medical management per Dr. Sexton
[2017-05-29] MEDS: NIFEdipine 60 mg ER Tab PO SCH ×2 (12:19→18:48)
[2017-05-29] MEDS: Insulin Detemir 100 units/ml Vial (Levemir) SC SCH ×2 (12:19→21:36)
[2017-05-29] MEDS ORDERED: DiphenhydrAMINE 50 mg/ml Inj IM STA (16:35)
--- NOTE | 2017-05-29 19:02 | CP.PCM.PN ---
Subjective - Date & Time of Evaluation Date of Evaluation: 05/29/17 Time of Evaluation: 08:00 - Subjective Subjective: clinically same Objective - Vital Signs/Intake and Output Vital Signs (last 24 hours): Temp Pulse Resp BP Pulse Ox 98.6 F 92 H 20 165/95 H 95 05/29/17 17:00 05/29/17 18:52 05/29/17 17:00 05/29/17 18:52 05/29/17 17:00 Intake and Output: 05/29/17 05/30/17 18:59 06:59 Intake Total 610 Balance 610 - Medications Medications: Current Medications Calcium Acetate (Phoslo) 667 mg PO TID [facility] Last Admin: 05/29/17 18:47 Dose: 667 mg Diphenhydramine HCl (Benadryl) 25 mg IVP Q4 PRN PRN Reason: Itching / Pruritus Last Admin: 05/29/17 18:50 Dose: 25 mg Ergocalciferol (Drisdol 50,000 Intl Units Cap) 1 cap PO QWK [facility] Famotidine (Pepcid) 20 mg PO DAILY [facility] Last Admin: 05/29/17 12:17 Dose: 20 mg Gabapentin (Neurontin) 300 mg PO BID [facility] Last Admin: 05/29/17 18:48 Dose: 300 mg Heparin Sodium (Porcine) (Heparin) 5,000 units SC Q12 [facility] Last Admin: 05/29/17 12:20 Dose: Not Given Hydromorphone HCl (Dilaudid) 2 mg IVP Q4H PRN PRN Reason: Pain, severe (8-10) Last Admin: 05/29/17 18:48 Dose: 2 mg Insulin Aspart (Novolog) 6 unit SC AC [facility] Last Admin: 05/29/17 16:30 Dose: Not Given Insulin Detemir (Levemir) 12 unit SC Q12 [facility] Last Admin: 05/29/17 12:19 Dose: Not Given Metoclopramide HCl (Reglan) 10 mg PO DAILY [facility] Last Admin: 05/29/17 12:17 Dose: Not Given Nifedipine (Procardia Xl) 60 mg PO BID [facility] Last Admin: 05/29/17 18:48 Dose: 60 mg Ondansetron HCl (Zofran Inj) 4 mg IVP Q6 PRN PRN Reason: Nausea/Vomiting Last Admin: 05/29/17 02:13 Dose: 4 mg Ondansetron HCl (Zofran Odt) 4 mg PO Q8 PRN PRN Reason: Nausea/Vomiting Last Admin: 05/29/17 12:17 Dose: 4 mg Vitamin B Complex/Vit C/Folic Acid (Nephro-Vamshi) 1 tab PO 0800 [facility]AREN Last Admin: 05/29/17 09:06 Dose: 1 tab - Labs Labs: 05/28/17 13:18 05/28/17 13:18 - Constitutional Appears: Well - Head Exam Head Exam: ATRAUMATIC, NORMAL INSPECTION, NORMOCEPHALIC - Eye Exam Eye Exam: EOMI, Normal appearance, PERRL Pupil Exam: NORMAL ACCOMODATION, PERRL - ENT Exam ENT Exam: Mucous Membranes Moist, Normal Exam - Neck Exam Neck Exam: Full ROM, Normal Inspection. absent: Lymphadenopathy - Respiratory Exam Respiratory Exam: Decreased Breath Sounds - Cardiovascular Exam Cardiovascular Exam: REGULAR RHYTHM, +S1, +S2 - GI/Abdominal Exam GI & Abdominal Exam: Soft, Diminished Bowel Sounds - Rectal Exam Rectal Exam: Deferred
--- NOTE | 2017-05-29 19:15 | CP.PCM.PN ---
Subjective - Date & Time of Evaluation Date of Evaluation: 05/29/17 Time of Evaluation: 13:00 - Subjective Subjective: SEEN ON RENAL F/U AMBULATORY .. IN NAD FEELS BETTER GOING TO HD LATER Objective - Vital Signs/Intake and Output Vital Signs (last 24 hours): Temp Pulse Resp BP Pulse Ox 98.6 F 92 H 20 165/95 H 95 05/29/17 17:00 05/29/17 18:52 05/29/17 17:00 05/29/17 18:52 05/29/17 17:00 Intake and Output: 05/29/17 05/30/17 18:59 06:59 Intake Total 610 Balance 610 - Medications Medications: Current Medications Calcium Acetate (Phoslo) 667 mg PO TID [facility] Last Admin: 05/29/17 18:47 Dose: 667 mg Diphenhydramine HCl (Benadryl) 25 mg IVP Q4 PRN PRN Reason: Itching / Pruritus Last Admin: 05/29/17 18:50 Dose: 25 mg Ergocalciferol (Drisdol 50,000 Intl Units Cap) 1 cap PO QWK [facility] Famotidine (Pepcid) 20 mg PO DAILY [facility] Last Admin: 05/29/17 12:17 Dose: 20 mg Gabapentin (Neurontin) 300 mg PO BID [facility] Last Admin: 05/29/17 18:48 Dose: 300 mg Heparin Sodium (Porcine) (Heparin) 5,000 units SC Q12 [facility] Last Admin: 05/29/17 12:20 Dose: Not Given Hydromorphone HCl (Dilaudid) 2 mg IVP Q4H PRN PRN Reason: Pain, severe (8-10) Last Admin: 05/29/17 18:48 Dose: 2 mg Insulin Aspart (Novolog) 6 unit SC AC [facility] Last Admin: 05/29/17 16:30 Dose: Not Given Insulin Detemir (Levemir) 12 unit SC Q12 [facility] Last Admin: 05/29/17 12:19 Dose: Not Given Metoclopramide HCl (Reglan) 10 mg PO DAILY [facility] Last Admin: 05/29/17 12:17 Dose: Not Given Nifedipine (Procardia Xl) 60 mg PO BID [facility] Last Admin: 05/29/17 18:48 Dose: 60 mg Ondansetron HCl (Zofran Inj) 4 mg IVP Q6 PRN PRN Reason: Nausea/Vomiting Last Admin: 05/29/17 02:13 Dose: 4 mg Ondansetron HCl (Zofran Odt) 4 mg PO Q8 PRN PRN Reason: Nausea/Vomiting Last Admin: 05/29/17 12:17 Dose: 4 mg Vitamin B Complex/Vit C/Folic Acid (Nephro-Vamshi) 1 tab PO 0800 [facility]AREN Last Admin: 05/29/17 09:06 Dose: 1 tab - Labs Labs: 05/28/17 13:18 05/28/17 13:18 Assessment and Plan - Assessment and Plan (Free Text) Assessment: ESRD ON HD MWF .. FOR HD TODAY ANEMIA OF CKD .. H/H STABLE D GASTROPERESIS MULTIPLE CO MORBIDITIES P : C/O CURRENT CARE C/O PRESENT MEDS
[2017-05-30] MEDS: DiphenhydrAMINE 50 mg/ml Inj IVP PRN ×5 (02:20→20:06)
[2017-05-30] MEDS: Multivitamin Vitamin B Complex (Nephro-Vite) Tab PO SCH (09:16)
[2017-05-30] MEDS: (Novolog) Insulin Aspart, Recombinant 100 u/ml 10 ml vial SC SCH ×3 (09:16→17:59)
[2017-05-30] MEDS ORDERED: Influenza Vaccine 60 mcg/0.5 mL SYR (4YR UP) IM ONE (10:00)
--- NOTE | 2017-05-30 11:04 | CP.PCM.PN ---
Subjective - Date & Time of Evaluation Date of Evaluation: 05/30/17 Time of Evaluation: 10:00 - Subjective Subjective: PGY3 on medicine Dr. Sexton service: Pt seen and examined at bedside this morning. Pt was talking on the phone without any acute distress. Pt reports nose bleeding overnight and toe pain. Pain tolerated with medication. No other acute complaints. Objective - Vital Signs/Intake and Output Vital Signs (last 24 hours): Temp Pulse Resp BP Pulse Ox 97.4 F L 90 20 173/91 H 100 05/30/17 08:37 05/30/17 08:37 05/30/17 08:37 05/30/17 08:37 05/30/17 08:37 Intake and Output: 05/30/17 05/30/17 06:59 18:59 Intake Total 100 Balance 100 - Medications Medications: Current Medications Calcium Acetate (Phoslo) 667 mg PO TID [facility] Last Admin: 05/29/17 18:47 Dose: 667 mg Diphenhydramine HCl (Benadryl) 25 mg IVP Q4 PRN PRN Reason: Itching / Pruritus Last Admin: 05/30/17 06:30 Dose: 25 mg Ergocalciferol (Drisdol 50,000 Intl Units Cap) 1 cap PO QWK [facility] Famotidine (Pepcid) 20 mg PO DAILY [facility] Last Admin: 05/29/17 12:17 Dose: 20 mg Gabapentin (Neurontin) 300 mg PO BID [facility] Last Admin: 05/29/17 18:48 Dose: 300 mg Heparin Sodium (Porcine) (Heparin) 5,000 units SC Q12 [facility] Last Admin: 05/29/17 21:35 Dose: Not Given Hydromorphone HCl (Dilaudid) 2 mg IVP Q4H PRN PRN Reason: Pain, severe (8-10) Last Admin: 05/30/17 06:30 Dose: 2 mg Insulin Aspart (Novolog) 6 unit SC AC [facility] Last Admin: 05/30/17 09:16 Dose: 6 unit Insulin Detemir (Levemir) 12 unit SC Q12 [facility] Last Admin: 05/29/17 21:36 Dose: 12 unit Metoclopramide HCl (Reglan) 10 mg PO DAILY [facility] Last Admin: 05/29/17 12:17 Dose: Not Given Nifedipine (Procardia Xl) 60 mg PO BID [facility] Last Admin: 05/29/17 18:48 Dose: 60 mg Ondansetron HCl (Zofran Inj) 4 mg IVP Q6 PRN PRN Reason: Nausea/Vomiting Last Admin: 05/29/17 02:13 Dose: 4 mg Ondansetron HCl (Zofran Odt) 4 mg PO Q8 PRN PRN Reason: Nausea/Vomiting Last Admin: 05/29/17 12:17 Dose: 4 mg Vitamin B Complex/Vit C/Folic Acid (Nephro-Vamshi) 1 tab PO 0800 [facility] Last Admin: 05/30/17 09:16 Dose: 1 tab - Labs Labs: 05/28/17 13:18 05/28/17 13:18 - Constitutional Appears: Non-toxic, No Acute Distress - Head Exam Head Exam: NORMOCEPHALIC - Eye Exam Eye Exam: Normal appearance Pupil Exam: NORMAL ACCOMODATION - ENT Exam Additional comments: Tissue paper packing in nose, tissue bedside with blood clots - Neck Exam Neck Exam: Normal Inspection - Respiratory Exam Respiratory Exam: Clear to Ausculation Bilateral, NORMAL BREATHING PATTERN. absent: Wheezes - Cardiovascular Exam Cardiovascular Exam: REGULAR RHYTHM, +S1, +S2. absent: Gallop, Rubs - GI/Abdominal Exam GI & Abdominal Exam: Soft, Normal Bowel Sounds. absent: Tenderness - Neurological Exam Neurological Exam: Alert, Awake, Oriented x3 - Psychiatric Exam Psychiatric exam: Normal Mood - Skin Additional comments: discoloration ulcer below left toenail, tenderness to palpation Assessment and Plan - Assessment and Plan (Free Text) Assessment: ESRD on HD- MWF Fluid overloaded Consult: Dr. Beckman (help appreciated) Phoslo 667mg PO TID Nephro-Vam[facility] Ergocalciferol 50k units for Vit D deficiency History of diabetic gastroparesis BG elevated, will monitor and adjust Accuchecks QAC&HS Novolog ISS Levemir 12 units SQ Q12H Aspart 6 units SC AC Zofran 4 mg IV Q6 PRN Reglan 10 mg IV Q6 PRN Diluadid 2mg IV Q4H PRN Benadryl 25mg IV Q4H PRN HTN Urgency Max 217/118 - pressures now improved see below for full history Clonidine 0.3 mg PO BID Procardia XL 60 mg PO Q12H Hx of hypertensive cardiomyopathy KAMRAN 03/02/17: No evidence of endocarditis. LVEF WNL. Cardiac Catheterization on prior admission revealed patent coronaries; hypertensive cardiomyopahy EF: 45 Clonidine 0.3 mg PO BID Procardia XL 60 mg PO Q12H Lesion on Left Foot Dr. Cardenas consulted - f/u reccs Prophylactic Measure Heparin 5000 units SQ Q12H Pepcid 20 mg PO daily (renally dosed) All medical management per Dr. Sexton
[2017-05-30] MEDS: Insulin Detemir 100 units/ml Vial (Levemir) SC SCH ×2 (11:18→22:19)
[2017-05-30] MEDS: NIFEdipine 60 mg ER Tab PO SCH ×2 (11:22→18:58)
--- NOTE | 2017-05-30 12:40 | CP.PCM.CON ---
History of Present Illness - History of Present Illness History of Present Illness: 31 year old female patient with extensive PMHx listed below was seen at bedside this AM with Dr. Noble concerning Left hallux paronychia. Patient is well known to Dr. Noble, GENARO. Patient states that she went to a nail salon a week ago and her left big toe started swelling up after the nail care. Patient was explained that the swelling and pain is from the medial border of the hallux nail digging into skin and that Dr. Noble will be doing an bedside nail partial avulsion with sterile equipments tomorrow. Patient understands and agrees with plan. Patient denies of any other pedal complaints. Patient denies of any N/V/F/C or SOB today PMH: Anemia, Anxiety, Asthma, Bronchitis, CHF, Diabetes, Fractures (Sep 2012 L foot), Gastritis, Gastrointestinal Ulcer (gastroparesis), Gall Bladder Disease ( gallbladder removed), Hepatitis, HTN, Hypercholesterolemia, Hyperthyroidism, Hypothyroidism, Kidney Stones, Pancreatitis (chronic), Peripheral Edema, Pneumonia, End Stage Renal Disease, Chronic Kidney Disease, Seizures, Sleep Apnea PSH: Cholecystectomy, Coronary Stent Review of Systems - Constitutional Constitutional: As Per HPI Past Patient History - Infectious Disease Hx of Infectious Diseases: None - Tetanus Immunizations Tetanus Immunization: Unknown - Past Medical History & Family History Past Medical History?: Yes - Past Social History Smoking Status: Never Smoked - CARDIAC Hx Congestive Heart Failure: Yes ([place]) Hx Hypercholesterolemia: Yes Hx Hypertension: Yes Hx Peripheral Edema: Yes - PULMONARY Hx Asthma: Yes Hx Bronchitis: Yes Hx Pneumonia: Yes Hx Sleep Apnea: Yes - NEUROLOGICAL Hx Seizures: Yes - HEENT Hx HEENT Problems: Yes Hx Cataracts: Yes Hx Glaucoma: Yes - RENAL Hx Chronic Kidney Disease: Yes Hx Kidney Stones: Yes - ENDOCRINE/METABOLIC Hx Hyperthyroidism: Yes Hx Hypothyroidism: Yes - HEMATOLOGICAL/ONCOLOGICAL Hx Anemia: Yes - INTEGUMENTARY Hx Dermatological Problems: Yes Other/Comment: DRY ITCHY SKIN ;multiple/generalized dark spots on skin. left toe blister - MUSCULOSKELETAL/RHEUMATOLOGICAL Hx Fractures: Yes (Sep 2012 L foot) - GASTROINTESTINAL Hx Gall Bladder Disease: Yes (gallbladder removed) Hx Gastritis: Yes Hx Pancreatitis: Yes (chronic) - PSYCHIATRIC Hx Anxiety: Yes Hx Substance Use: Yes - SURGICAL HISTORY Hx Cholecystectomy: Yes Hx Coronary Stent: Yes - ANESTHESIA Hx Anesthesia: Yes Hx Anesthesia Reactions: No Hx Malignant Hyperthermia: No Meds Allergies/Adverse Reactions: Allergies Allergy/AdvReac Type Severity Reaction Status Date / Time ketorolac tromethamine Allergy RASH Verified 05/28/17 12:25 [From Toradol] latex Allergy RASH Verified 05/28/17 12:25 morphine Allergy RASH Verified 05/28/17 12:25 tramadol Allergy RASH Verified 05/28/17 12:25 - Medications Medications: Current Medications Calcium Acetate (Phoslo) 667 mg PO TID [facility]S [facility] Last Admin: 05/30/17 11:21 Dose: 667 mg Diphenhydramine HCl (Benadryl) 25 mg IVP Q4 PRN PRN Reason: Itching / Pruritus Last Admin: 05/30/17 11:17 Dose: 25 mg Ergocalciferol (Drisdol 50,000 Intl Units Cap) 1 cap PO QWK [facility]S [facility] Famotidine (Pepcid) 20 mg PO DAILY [facility]S [facility] Last Admin: 05/30/17 11:21 Dose: 20 mg Gabapentin (Neurontin) 300 mg PO BID [facility] Last Admin: 05/30/17 11:20 Dose: 300 mg Heparin Sodium (Porcine) (Heparin) 5,000 units SC Q12 [facility] Last Admin: 05/30/17 11:23 Dose: Not Given Hydromorphone HCl (Dilaudid) 2 mg IVP Q4H PRN PRN Reason: Pain, severe (8-10) Last Admin: 05/30/17 11:18 Dose: 2 mg Insulin Aspart (Novolog) 6 unit SC AC [facility] Last Admin: 05/30/17 09:16 Dose: 6 unit Insulin Detemir (Levemir) 12 unit SC Q12 [facility] Last Admin: 05/30/17 11:18 Dose: 12 unit Metoclopramide HCl (Reglan) 10 mg PO DAILY [facility] Last Admin: 05/30/17 11:21 Dose: 10 mg Nifedipine (Procardia Xl) 60 mg PO BID [facility] Last Admin: 05/30/17 11:22 Dose: 60 mg Ondansetron HCl (Zofran Inj) 4 mg IVP Q6 PRN PRN Reason: Nausea/Vomiting Last Admin: 05/29/17 02:13 Dose: 4 mg Ondansetron HCl (Zofran Odt) 4 mg PO Q8 PRN PRN Reason: Nausea/Vomiting Last Admin: 05/30/17 11:22 Dose: 4 mg Vitamin B Complex/Vit C/Folic Acid (Nephro-Vamshi) 1 tab PO 0800 [facility]AREN Last Admin: 05/30/17 09:16 Dose: 1 tab Physical Exam - Constitutional Appears: Well, Non-toxic, No Acute Distress - Head Exam Head Exam: ATRAUMATIC - Extremities Exam Additional comments: Left lower extremity exam DERM: No open wound is noted. Mild erythema is noted to around the Left hallux nail borders. Swelling noted to medial aspect of left hallux nail border. No drainage is noted. No mal-odor noted. no interdigital maceration noted. no PTB VASC: Palpable DP and PT noted 2/4 bilaterally. ASSIGNMENT OFFICER less than 3 seconds noted to all digits ORTHO: Pain on palpation to medial border of left hallux. ROM normal to joints distal to ankle except at the level of left 1st IPJ due to guarding. NEUO: Gross sensation intact - Neurological Exam Neurological exam: Alert, Oriented x3 - Psychiatric Exam Psychiatric exam: Normal Affect, Normal Mood - Skin Skin Exam: Normal Color, Warm Results - Vital Signs Recent Vital Signs: Last Vital Signs Temp 97.4 F L 05/30/17 08:37 Pulse 90 05/30/17 08:37 Resp 20 05/30/17 08:37 BP 173/91 H 05/30/17 08:37 Pulse Ox 100 05/30/17 08:37 - Labs Result Diagrams: 05/28/17 13:18 05/28/17 13:18 Labs: Laboratory Results - last 24 hr 05/29/17 05/29/17 05/30/17 17:43 21:26 06:47 POC Glucose (mg/dL) 102 142 H 237 H 05/30/17 11:52 POC Glucose (mg/dL) 169 H Assessment & Plan - Assessment and Plan (Free Text) Assessment: 31 yo female patient with extensive PMHx presenting with Left hallux paronychia Plan: Patient was seen, evaluated discussed in detail with attending Dr. Noble labs and vitals reviewed; afebrile Left hallux dressed with DSD Podiatry to perform bedside left hallux partial nail avulsion tomorrow morning Podiatry will continue to follow inhouse
[2017-05-30] MEDS ORDERED: Bupivacaine 0.5% Inj(30mL) IJ ONE (13:00)
[2017-05-30] MEDS ORDERED: Lidocaine 1% Inj (20ml) INJ ONE (13:03)
[2017-05-30] MEDS ORDERED: Phenylephrine 0.25% Nasal Spray (15 ml) NS PRN (14:09)
[2017-05-30 14:47] LABS: BASO # 0.1 K/uL (0.0-0.2); BASO % 1.4 % (0.0-2.0); EOS # 1.6 K/uL (0.0-0.7); EOS % 22.7 % (0.0-4.0); HEMATOCRIT 32.1 % (34.0-47.0); LYMPH # 1.3 K/uL (1.0-4.3); LYMPH % 18.4 % (20.0-40.0); MEAN CELL VOLUME 95.2 fL (81.0-99.0); MEAN CORPUSCULAR HEMOGLOBIN 31.9 pg (27.0-31.0); MEAN CORPUSCULAR HGB CONC 33.5 g/dL (33.0-37.0); MEAN PLATELET VOLUME 7.7 fL (7.2-11.7); MONO # 0.6 K/uL (0.0-0.8); MONO % 8.6 % (0.0-10.0); PLATELET COUNT 289 K/uL (130-400); RED CELL DISTRIBUTION WIDTH 16.5 % (11.5-14.5); WHITE BLOOD COUNT 6.9 K/uL (4.8-10.8)
[2017-05-30 14:56] LABS: POTASSIUM 4.6 mmol/L (3.6-5.2)
[2017-05-30 14:58] LABS: ALB/GLOB RATIO 1.2 (1.0-2.1); BILIRUBIN,TOTAL 0.6 mg/dL (0.2-1.3); TOTAL PROTEIN 8.4 g/dL (6.3-8.3)
[2017-05-30 14:59] LABS: CALCIUM 7.6 mg/dl (8.6-10.4); MAGNESIUM 2.1 mg/dL (1.6-2.3); PHOSPHOROUS 6.8 mg/dL (2.5-4.5)
[2017-05-30] MEDS: Phenylephrine 0.5% Nasal Spray (15 ml) NS PRN ×2 (15:03→22:20)
[2017-05-30 15:13] LABS: EOSINOPHIL 20 % (0-4); NEUTROPHIL 54 % (50-75); TOTAL CELLS COUNTED 100
[2017-05-30] MEDS ORDERED: DiphenhydrAMINE 50 mg/ml Inj IVP STA ×2 (16:32)
--- NOTE | 2017-05-30 19:32 | CP.PCM.PN ---
Subjective - Date & Time of Evaluation Date of Evaluation: 05/30/17 Time of Evaluation: 08:20 - Subjective Subjective: clinically same Objective - Vital Signs/Intake and Output Vital Signs (last 24 hours): Temp Pulse Resp BP Pulse Ox 97.6 F 105 H 16 125/75 92 L 05/30/17 17:35 05/30/17 17:35 05/30/17 17:35 05/30/17 17:35 05/30/17 17:35 Intake and Output: 05/30/17 05/31/17 18:59 06:59 Intake Total 100 Balance 100 - Medications Medications: Current Medications Calcium Acetate (Phoslo) 667 mg PO TID [facility] Last Admin: 05/30/17 18:21 Dose: 667 mg Ergocalciferol (Drisdol 50,000 Intl Units Cap) 1 cap PO QWK [facility] Famotidine (Pepcid) 20 mg PO DAILY [facility] Last Admin: 05/30/17 11:21 Dose: 20 mg Gabapentin (Neurontin) 300 mg PO BID [facility] Last Admin: 05/30/17 18:21 Dose: 300 mg Heparin Sodium (Porcine) (Heparin) 5,000 units SC Q12 [facility] Last Admin: 05/30/17 11:23 Dose: Not Given Hydromorphone HCl (Dilaudid) 2 mg IVP Q4H PRN PRN Reason: Pain, severe (8-10) Last Admin: 05/30/17 15:22 Dose: 2 mg Insulin Aspart (Novolog) 6 unit SC AC [facility] Last Admin: 05/30/17 17:59 Dose: Not Given Insulin Detemir (Levemir) 12 unit SC Q12 [facility] Last Admin: 05/30/17 11:18 Dose: 12 unit Metoclopramide HCl (Reglan) 10 mg PO DAILY [facility] Last Admin: 05/30/17 11:21 Dose: 10 mg Nifedipine (Procardia Xl) 60 mg PO BID [facility] Last Admin: 05/30/17 18:58 Dose: 60 mg Ondansetron HCl (Zofran Inj) 4 mg IVP Q6 PRN PRN Reason: Nausea/Vomiting Last Admin: 05/29/17 02:13 Dose: 4 mg Ondansetron HCl (Zofran Odt) 4 mg PO Q8 PRN PRN Reason: Nausea/Vomiting Last Admin: 05/30/17 11:22 Dose: 4 mg Phenylephrine HCl (Willis-Synephrine 0.5% Nasal Rector) 0 ml NS Q4H PRN PRN Reason: nose bleeding Stop: 06/02/17 14:10 Last Admin: 05/30/17 15:03 Dose: 0.5 % Vitamin B Complex/Vit C/Folic Acid (Nephro-Vamshi) 1 tab PO 0800 KAREN Last Admin: 05/30/17 09:16 Dose: 1 tab - Labs Labs: 05/30/17 14:41 05/30/17 14:41
--- NOTE | 2017-05-30 19:46 | CON ---
DATE: 05/30/2017 TIME: 10:50 am. This is a 31-year-old female, well known to me from prior surgical interventions for a fourth interspace abscess about the right foot over a year ago. She subsequently healed nicely and this morning shows no signs of any infectious process about the right lower extremity. However, upon eliciting history, she had a nail salon procedure and she subsequently has now what appears to be an indurated and small abscess about the lateral aspect of her left hallux. At this time, the area was inspected and I&D'd superficially at bedside without incident; however, the patient will need a partial nail avulsion, which I will perform tomorrow under local anesthesia at bedside. Her neurovascular status is unremarkable to the lower extremity and should heal nicely with this small procedure scheduled for tomorrow. Alexei Cardenas DPM
[2017-05-31] MEDS: DiphenhydrAMINE 50 mg/ml Inj IVP PRN ×6 (00:43→19:54)
--- NOTE | 2017-05-31 07:04 | CP.PCM.PN ---
Subjective - Date & Time of Evaluation Date of Evaluation: 05/31/17 Time of Evaluation: 08:00 - Subjective Subjective: PGY3 on medicine Dr. Sexton service: Pt seen and examined at bedside. Pt to have toe procedure done with podiatry. Pt also noted nose bleeding stopped overnight. No other complaints at the moment. Per discussion with podiatry, wound check and dressing change is needed for tomorrow. Will plan for DC tomorrow. Objective - Vital Signs/Intake and Output Vital Signs (last 24 hours): Temp Pulse Resp BP Pulse Ox 99.2 F 118 H 20 134/92 H 94 L 05/30/17 23:40 05/30/17 23:40 05/30/17 23:40 05/30/17 23:40 05/30/17 23:40 - Medications Medications: Current Medications Calcium Acetate (Phoslo) 667 mg PO TID [facility] Last Admin: 05/30/17 18:21 Dose: 667 mg Diphenhydramine HCl (Benadryl) 25 mg IVP Q4 PRN PRN Reason: Itching / Pruritus Last Admin: 05/31/17 04:24 Dose: 25 mg Ergocalciferol (Drisdol 50,000 Intl Units Cap) 1 cap PO QWK [facility] Famotidine (Pepcid) 20 mg PO DAILY [facility] Last Admin: 05/30/17 11:21 Dose: 20 mg Gabapentin (Neurontin) 300 mg PO BID [facility] Last Admin: 05/30/17 18:21 Dose: 300 mg Heparin Sodium (Porcine) (Heparin) 5,000 units SC Q12 [facility] Last Admin: 05/30/17 22:16 Dose: Not Given Hydromorphone HCl (Dilaudid) 2 mg IVP Q4H PRN PRN Reason: Pain, severe (8-10) Last Admin: 05/31/17 04:23 Dose: 2 mg Insulin Aspart (Novolog) 6 unit SC AC [facility] Last Admin: 05/30/17 17:59 Dose: Not Given Insulin Detemir (Levemir) 12 unit SC Q12 [facility] Last Admin: 05/30/17 22:19 Dose: 12 unit Metoclopramide HCl (Reglan) 10 mg PO DAILY [facility] Last Admin: 05/30/17 11:21 Dose: 10 mg Nifedipine (Procardia Xl) 60 mg PO BID [facility] Last Admin: 05/30/17 18:58 Dose: 60 mg Ondansetron HCl (Zofran Inj) 4 mg IVP Q6 PRN PRN Reason: Nausea/Vomiting Last Admin: 05/31/17 04:28 Dose: 4 mg Ondansetron HCl (Zofran Odt) 4 mg PO Q8 PRN PRN Reason: Nausea/Vomiting Last Admin: 05/30/17 11:22 Dose: 4 mg Phenylephrine HCl (Willis-Synephrine 0.5% Nasal [place]) 0 ml NS Q4H PRN PRN Reason: nose bleeding Stop: 06/02/17 14:10 Last Admin: 05/30/17 22:20 Dose: 0.5 % Vitamin B Complex/Vit C/Folic Acid (Nephro-Vamshi) 1 tab PO 0800 [facility] Last Admin: 05/30/17 09:16 Dose: 1 tab - Labs Labs: 05/30/17 14:41 05/30/17 14:41 - Constitutional Appears: Non-toxic, No Acute Distress, Chronically Ill - Head Exam Head Exam: NORMOCEPHALIC - Eye Exam Eye Exam: Normal appearance Pupil Exam: NORMAL ACCOMODATION - Respiratory Exam Respiratory Exam: Clear to Ausculation Bilateral, NORMAL BREATHING PATTERN - Cardiovascular Exam Cardiovascular Exam: REGULAR RHYTHM, +S1, +S2. absent: Gallop, Rubs - GI/Abdominal Exam GI & Abdominal Exam: Soft, Normal Bowel Sounds. absent: Tenderness - Extremities Exam Additional comments: trace blood on left toe dressing - Neurological Exam Neurological Exam: Alert, Awake, Oriented x3 - Psychiatric Exam Psychiatric exam: Normal Mood Assessment and Plan - Assessment and Plan (Free Text) Assessment: ESRD on HD- MWF Fluid overloaded Consult: Dr. Beckman (help appreciated) Phoslo 667mg PO TID [facility]am[facility] Ergocalciferol 50k units for Vit D deficiency History of diabetic gastroparesis BG elevated, will monitor and adjust Accuchecks QAC&HS Novolog ISS Levemir 12 units SQ Q12H Aspart 6 units SC AC Zofran 4 mg IV Q6 PRN Reglan 10 mg IV Q6 PRN Diluadid 2mg IV Q4H PRN Benadryl 25mg IV Q4H PRN HTN Urgency Max 217/118 - pressures now improved see below for full history Clonidine 0.3 mg PO BID Procardia XL 60 mg PO Q12H Hx of hypertensive cardiomyopathy KAMRAN 03/02/17: No evidence of endocarditis. LVEF WNL. Cardiac Catheterization on prior admission revealed patent coronaries; hypertensive cardiomyopahy EF: 45 Clonidine 0.3 mg PO BID Procardia XL 60 mg PO Q12H Lesion on Left Foot Dr. Cardenas consulted - will have left hallux partial nail avulsion today - Need wound check and dressing change tomorrow Prophylactic Measure Heparin 5000 units SQ Q12H Pepcid 20 mg PO daily (renally dosed) All medical management per Dr. Sexton
[2017-05-31] MEDS: (Novolog) Insulin Aspart, Recombinant 100 u/ml 10 ml vial SC SCH ×3 (07:30→18:05)
[2017-05-31] MEDS: Multivitamin Vitamin B Complex (Nephro-Vite) Tab PO SCH (08:39)
--- NOTE | 2017-05-31 09:43 | CP.PCM.PN ---
Subjective - Date & Time of Evaluation Date of Evaluation: 05/31/17 Time of Evaluation: 10:00 - Subjective Subjective: 31 year old female patient with extensive PMHx was seen at bedside this AM with Dr. Noble concerning Left hallux paronychia. AAO x3. Bedside Left hallux partial nail avulsion was done with sterile equipments. Patient tolerated procedure well without any incident. Patient denies of any other pedal complaints. Patient denies of any N/V/F/C or SOB today Objective - Vital Signs/Intake and Output Vital Signs (last 24 hours): Temp Pulse Resp BP Pulse Ox 97.3 F L 89 20 166/97 H 99 05/31/17 07:00 05/31/17 07:00 05/31/17 07:00 05/31/17 07:00 05/31/17 07:00 - Medications Medications: Current Medications Calcium Acetate (Phoslo) 667 mg PO TID [facility] Last Admin: 05/30/17 18:21 Dose: 667 mg Diphenhydramine HCl (Benadryl) 25 mg IVP Q4 PRN PRN Reason: Itching / Pruritus Last Admin: 05/31/17 08:22 Dose: 25 mg Ergocalciferol (Drisdol 50,000 Intl Units Cap) 1 cap PO QWK [facility] Famotidine (Pepcid) 20 mg PO DAILY [facility] Last Admin: 05/30/17 11:21 Dose: 20 mg Gabapentin (Neurontin) 300 mg PO BID [facility] Last Admin: 05/30/17 18:21 Dose: 300 mg Heparin Sodium (Porcine) (Heparin) 5,000 units SC Q12 [facility] Last Admin: 05/30/17 22:16 Dose: Not Given Hydromorphone HCl (Dilaudid) 2 mg IVP Q4H PRN PRN Reason: Pain, severe (8-10) Last Admin: 05/31/17 08:23 Dose: 2 mg Insulin Aspart (Novolog) 6 unit SC AC [facility] Last Admin: 05/31/17 07:30 Dose: 6 unit Insulin Detemir (Levemir) 12 unit SC Q12 [facility] Last Admin: 05/30/17 22:19 Dose: 12 unit Metoclopramide HCl (Reglan) 10 mg PO DAILY [facility] Last Admin: 05/30/17 11:21 Dose: 10 mg Nifedipine (Procardia Xl) 60 mg PO BID [facility] Last Admin: 05/30/17 18:58 Dose: 60 mg Ondansetron HCl (Zofran Inj) 4 mg IVP Q6 PRN PRN Reason: Nausea/Vomiting Last Admin: 05/31/17 04:28 Dose: 4 mg Ondansetron HCl (Zofran Odt) 4 mg PO Q8 PRN PRN Reason: Nausea/Vomiting Last Admin: 05/30/17 11:22 Dose: 4 mg Phenylephrine HCl (Willis-Synephrine 0.5% Nasal [place]) 0 ml NS Q4H PRN PRN Reason: nose bleeding Stop: 06/02/17 14:10 Last Admin: 05/30/17 22:20 Dose: 0.5 % Vitamin B Complex/Vit C/Folic Acid (Nephro-Vamshi) 1 tab PO 0800 [facility] Last Admin: 05/31/17 08:39 Dose: 1 tab - Labs Labs: 05/30/17 14:41 05/30/17 14:41 - Constitutional Appears: Well, Non-toxic, No Acute Distress - Head Exam Head Exam: ATRAUMATIC - Extremities Exam Additional comments: Left lower extremity exam DERM: No open wound is noted. Mild erythema is noted to around the Left medial hallux nail borders. Swelling noted to medial aspect of left hallux nail border. No drainage is noted. No mal-odor noted. no interdigital maceration noted. no PTB VASC: Palpable DP and PT noted 2/4 bilaterally. ACRYLIC FABRICATOR less than 3 seconds noted to all digits ORTHO: Pain on palpation to medial border of left hallux. ROM normal to joints distal to ankle except at the level of left 1st IPJ due to guarding. NEUO: Gross sensation intact - Neurological Exam Neurological Exam: Alert, Awake, Oriented x3 - Psychiatric Exam Psychiatric exam: Normal Affect, Normal Mood - Skin Skin Exam: Normal Color, Warm Assessment and Plan - Assessment and Plan (Free Text) Assessment: 31 yo female patient with extensive PMHx presenting with Left hallux paronychia s/p bedside left hallux medial partial nail avulsion Plan: Patient was seen, evaluated discussed in detail with attending Dr. Noble labs and vitals reviewed; afebrile Left hallux dressed with Xeroform, DSD Total 6cc of 1:1 Mix of 1% Lidocaine plain and 0.5% Marcaine plain was injected into Left hallux. Left hallux medial border partially resected with sterile equipments. No incident. Patient tolerated procedure well. Podiatry will continue to follow inhouse
[2017-05-31] MEDS: Insulin Detemir 100 units/ml Vial (Levemir) SC SCH ×2 (10:00→23:36)
[2017-05-31] MEDS: NIFEdipine 60 mg ER Tab PO SCH ×2 (10:11→18:06)
--- NOTE | 2017-05-31 18:53 | CP.PCM.PN ---
Subjective - Date & Time of Evaluation Date of Evaluation: 05/31/17 Time of Evaluation: 08:20 - Subjective Subjective: clinically same Objective - Vital Signs/Intake and Output Vital Signs (last 24 hours): Temp Pulse Resp BP Pulse Ox 97.3 F L 89 20 166/97 H 99 05/31/17 07:00 05/31/17 07:00 05/31/17 07:00 05/31/17 07:00 05/31/17 07:00 - Medications Medications: Current Medications Calcium Acetate (Phoslo) 667 mg PO TID [facility] Last Admin: 05/31/17 18:06 Dose: 667 mg Diphenhydramine HCl (Benadryl) 25 mg IVP Q4 PRN PRN Reason: Itching / Pruritus Last Admin: 05/31/17 12:25 Dose: 25 mg Ergocalciferol (Drisdol 50,000 Intl Units Cap) 1 cap PO QWK [facility] Famotidine (Pepcid) 20 mg PO DAILY [facility] Last Admin: 05/31/17 10:11 Dose: 20 mg Gabapentin (Neurontin) 300 mg PO BID [facility] Last Admin: 05/31/17 18:06 Dose: 300 mg Heparin Sodium (Porcine) (Heparin) 5,000 units SC Q12 [facility] Last Admin: 05/31/17 10:09 Dose: Not Given Hydromorphone HCl (Dilaudid) 2 mg IVP Q4H PRN PRN Reason: Pain, severe (8-10) Last Admin: 05/31/17 12:25 Dose: 2 mg Insulin Aspart (Novolog) 6 unit SC AC [facility] Last Admin: 05/31/17 18:05 Dose: 6 unit Insulin Detemir (Levemir) 12 unit SC Q12 [facility] Last Admin: 05/31/17 10:00 Dose: 12 unit Metoclopramide HCl (Reglan) 10 mg PO DAILY [facility] Last Admin: 05/31/17 10:11 Dose: 10 mg Nifedipine (Procardia Xl) 60 mg PO BID [facility] Last Admin: 05/31/17 18:06 Dose: 60 mg Ondansetron HCl (Zofran Inj) 4 mg IVP Q6 PRN PRN Reason: Nausea/Vomiting Last Admin: 05/31/17 04:28 Dose: 4 mg Ondansetron HCl (Zofran Odt) 4 mg PO Q8 PRN PRN Reason: Nausea/Vomiting Last Admin: 05/31/17 10:11 Dose: 4 mg Phenylephrine HCl (Willis-Synephrine 0.5% Nasal [place]) 0 ml NS Q4H PRN PRN Reason: nose bleeding Stop: 06/02/17 14:10 Last Admin: 05/30/17 22:20 Dose: 0.5 % Vitamin B Complex/Vit C/Folic Acid (Nephro-Vamshi) 1 tab PO 0800 [facility] Last Admin: 05/31/17 08:39 Dose: 1 tab - Labs Labs: 05/30/17 14:41 05/30/17 14:41 - Constitutional Appears: Well - Head Exam Head Exam: ATRAUMATIC, NORMAL INSPECTION, NORMOCEPHALIC - Eye Exam Eye Exam: EOMI, Normal appearance, PERRL Pupil Exam: NORMAL ACCOMODATION, PERRL - ENT Exam ENT Exam: Mucous Membranes Moist, Normal Exam - Neck Exam Neck Exam: Full ROM, Normal Inspection. absent: Lymphadenopathy - Respiratory Exam Respiratory Exam: Decreased Breath Sounds - Cardiovascular Exam Cardiovascular Exam: REGULAR RHYTHM, +S1, +S2 - GI/Abdominal Exam GI & Abdominal Exam: Soft, Diminished Bowel Sounds - Rectal Exam Rectal Exam: Deferred
--- NOTE | 2017-05-31 19:20 | CP.PCM.PN ---
Subjective - Date & Time of Evaluation Date of Evaluation: 05/31/17 Time of Evaluation: 13:00 - Subjective Subjective: SEEN ON RENAL F/U FEELS IMPROVED ALL PREVIOUS EMR REVIEWED Objective - Vital Signs/Intake and Output Vital Signs (last 24 hours): Temp Pulse Resp BP Pulse Ox 97.3 F L 89 20 166/97 H 99 05/31/17 07:00 05/31/17 07:00 05/31/17 07:00 05/31/17 07:00 05/31/17 07:00 - Medications Medications: Current Medications Calcium Acetate (Phoslo) 667 mg PO TID [facility] Last Admin: 05/31/17 18:06 Dose: 667 mg Diphenhydramine HCl (Benadryl) 25 mg IVP Q4 PRN PRN Reason: Itching / Pruritus Last Admin: 05/31/17 12:25 Dose: 25 mg Ergocalciferol (Drisdol 50,000 Intl Units Cap) 1 cap PO QWK [facility] Famotidine (Pepcid) 20 mg PO DAILY [facility] Last Admin: 05/31/17 10:11 Dose: 20 mg Gabapentin (Neurontin) 300 mg PO BID [facility] Last Admin: 05/31/17 18:06 Dose: 300 mg Heparin Sodium (Porcine) (Heparin) 5,000 units SC Q12 [facility] Last Admin: 05/31/17 10:09 Dose: Not Given Hydromorphone HCl (Dilaudid) 2 mg IVP Q4H PRN PRN Reason: Pain, severe (8-10) Last Admin: 05/31/17 12:25 Dose: 2 mg Insulin Aspart (Novolog) 6 unit SC AC [facility] Last Admin: 05/31/17 18:05 Dose: 6 unit Insulin Detemir (Levemir) 12 unit SC Q12 [facility] Last Admin: 05/31/17 10:00 Dose: 12 unit Metoclopramide HCl (Reglan) 10 mg PO DAILY [facility] Last Admin: 05/31/17 10:11 Dose: 10 mg Nifedipine (Procardia Xl) 60 mg PO BID [facility] Last Admin: 05/31/17 18:06 Dose: 60 mg Ondansetron HCl (Zofran Inj) 4 mg IVP Q6 PRN PRN Reason: Nausea/Vomiting Last Admin: 05/31/17 04:28 Dose: 4 mg Ondansetron HCl (Zofran Odt) 4 mg PO Q8 PRN PRN Reason: Nausea/Vomiting Last Admin: 05/31/17 10:11 Dose: 4 mg Phenylephrine HCl (Willis-Synephrine 0.5% Nasal [place]) 0 ml NS Q4H PRN PRN Reason: nose bleeding Stop: 06/02/17 14:10 Last Admin: 05/30/17 22:20 Dose: 0.5 % Vitamin B Complex/Vit C/Folic Acid (Nephro-Vamshi) 1 tab PO 0800 [facility] Last Admin: 05/31/17 08:39 Dose: 1 tab - Labs Labs: 05/30/17 14:41 05/30/17 14:41 Assessment and Plan - Assessment and Plan (Free Text) Assessment: ESRD ON HD TIW .. TO BE C/O ANEMIA OF CKD .. H/H STABLE MULTIPLE CO MORBIDITIES C/O CURRENT CARE C/O PRESENT MANAGEMENT
[2017-05-31] MEDS ORDERED: DiphenhydrAMINE 50 mg/ml Inj IM PRN (19:48)
[2017-06-01] MEDS: DiphenhydrAMINE 50 mg/ml Inj IVP PRN ×5 (04:10→16:39)
--- NOTE | 2017-06-01 07:23 | CP.PCM.PN ---
Subjective - Date & Time of Evaluation Date of Evaluation: 06/01/17 Time of Evaluation: 06:40 - Subjective Subjective: Podiatry note for Dr. Noble 31 year old female patient 1 day s/p Left hallux partial nail avulsion with extensive PMHx was seen at bedside this AM. AAO x3. Dressing to left hallux remains clean dry and intact. Patient complains of mild pain to left hallux today. Patient denies of any other pedal complaints. Patient denies of any N/V/F /C or SOB today Objective - Vital Signs/Intake and Output Vital Signs (last 24 hours): Temp Pulse Resp BP Pulse Ox 97.5 F L 98 H 20 177/113 H 100 05/31/17 23:22 05/31/17 23:22 05/31/17 23:22 05/31/17 23:22 05/31/17 23:22 - Medications Medications: Current Medications Calcium Acetate (Phoslo) 667 mg PO TID [facility] Last Admin: 05/31/17 18:06 Dose: 667 mg Diphenhydramine HCl (Benadryl) 25 mg IVP Q4 PRN PRN Reason: Itching / Pruritus Last Admin: 06/01/17 04:10 Dose: 25 mg Diphenhydramine HCl (Benadryl) 25 mg IM Q4 PRN PRN Reason: Itching / Pruritus Ergocalciferol (Drisdol 50,000 Intl Units Cap) 1 cap PO QWK [facility] Famotidine (Pepcid) 20 mg PO DAILY [facility] Last Admin: 05/31/17 10:11 Dose: 20 mg Gabapentin (Neurontin) 300 mg PO BID [facility] Last Admin: 05/31/17 18:06 Dose: 300 mg Hydromorphone HCl (Dilaudid) 2 mg IVP Q4H PRN PRN Reason: Pain, severe (8-10) Last Admin: 06/01/17 04:10 Dose: 2 mg Hydromorphone HCl (Dilaudid) 2 mg IM Q4H PRN PRN Reason: Pain, severe (8-10) Insulin Aspart (Novolog) 6 unit SC AC [facility] Last Admin: 05/31/17 18:05 Dose: 6 unit Insulin Detemir (Levemir) 12 unit SC Q12 [facility] Last Admin: 05/31/17 23:36 Dose: 12 unit Metoclopramide HCl (Reglan) 10 mg PO DAILY [facility] Last Admin: 05/31/17 10:11 Dose: 10 mg Nifedipine (Procardia Xl) 60 mg PO BID [facility] Last Admin: 05/31/17 18:06 Dose: 60 mg Ondansetron HCl (Zofran Inj) 4 mg IVP Q6 PRN PRN Reason: Nausea/Vomiting Last Admin: 05/31/17 04:28 Dose: 4 mg Ondansetron HCl (Zofran Odt) 4 mg PO Q8 PRN PRN Reason: Nausea/Vomiting Last Admin: 05/31/17 10:11 Dose: 4 mg Phenylephrine HCl (Willis-Synephrine 0.5% Nasal [place]) 0 ml NS Q4H PRN PRN Reason: nose bleeding Stop: 06/02/17 14:10 Last Admin: 05/30/17 22:20 Dose: 0.5 % Vitamin B Complex/Vit C/Folic Acid (Nephro-Vamshi) 1 tab PO 0800 [facility] Last Admin: 05/31/17 08:39 Dose: 1 tab - Labs Labs: 05/30/17 14:41 05/30/17 14:41 - Constitutional Appears: Well, Non-toxic - Head Exam Head Exam: ATRAUMATIC - Extremities Exam Additional comments: Left lower extremity exam DERM: Slight maceration noted to left hallux nail avulsion area. Mild erythema is noted to around the Left medial hallux nail borders. Swelling noted to medial aspect of left hallux nail border. No drainage is noted. No mal-odor noted. no interdigital maceration noted. no PTB VASC: Palpable DP and PT noted 2/4 bilaterally. 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 ROM normal to joints distal to ankle except at the level of left 1st IPJ due to guarding. NEUO: Gross sensation intact - Neurological Exam Neurological Exam: Alert, Awake, Oriented x3 - Psychiatric Exam Psychiatric exam: Normal Affect, Normal Mood - Skin Skin Exam: Normal Color, Warm Assessment and Plan - Assessment and Plan (Free Text) Assessment: 31 yo female patient with extensive PMHx presenting with Left hallux paronychia 1day s/p bedside left hallux medial partial nail avulsion Plan: Patient was seen, evaluated discussed in detail with attending Dr. Noble labs and vitals reviewed; afebrile Left hallux dressed with Betadine, DSD Patient is stable from podiatry standpoint. Patient can follow up with Dr. Noble as outpatient Podiatry will continue to follow inhouse
[2017-06-01 07:53] VITALS: O2SAT 97
[2017-06-01] MEDS: Multivitamin Vitamin B Complex (Nephro-Vite) Tab PO SCH (08:17)
[2017-06-01] MEDS: (Novolog) Insulin Aspart, Recombinant 100 u/ml 10 ml vial SC SCH (08:23)
[2017-06-01] MEDS: NIFEdipine 60 mg ER Tab PO SCH (10:52)
--- NOTE | 2017-06-01 11:03 | CP.PCM.PN ---
Subjective - Date & Time of Evaluation Date of Evaluation: 06/01/17 Time of Evaluation: 11:00 - Subjective Subjective: PGY2 note for Dr. Sexton's service: Pt seen and examined at bedside. Nursing reports patient refused blood pressure check last night, despite pressures severely elevated. Ms Collins was educated about importance of blood pressure control, especially in setting of diabetes, to avoid further long-term complications on eyes, kidneys, stroke/DC risk. Patient was receptive, saying "the nurse caught her at a bad moment." She denies chest pain, palpitations, N/V episodes last night. Patient for dialysis today, with discharge to follow dialysis. Objective - Vital Signs/Intake and Output Vital Signs (last 24 hours): Temp Pulse Resp BP Pulse Ox 97.9 F 106 H 20 163/95 H 97 06/01/17 07:52 06/01/17 07:52 06/01/17 07:52 06/01/17 07:52 06/01/17 07:52 - Medications Medications: Current Medications Calcium Acetate (Phoslo) 667 mg PO TID [facility] Last Admin: 06/01/17 10:53 Dose: 667 mg Diphenhydramine HCl (Benadryl) 25 mg IVP Q4 PRN PRN Reason: Itching / Pruritus Last Admin: 06/01/17 08:23 Dose: 25 mg Diphenhydramine HCl (Benadryl) 25 mg IM Q4 PRN PRN Reason: Itching / Pruritus Ergocalciferol (Drisdol 50,000 Intl Units Cap) 1 cap PO QWK [facility] Famotidine (Pepcid) 20 mg PO DAILY [facility] Last Admin: 06/01/17 10:53 Dose: 20 mg Gabapentin (Neurontin) 300 mg PO BID [facility] Last Admin: 06/01/17 10:51 Dose: 300 mg Hydromorphone HCl (Dilaudid) 2 mg IVP Q4H PRN PRN Reason: Pain, severe (8-10) Last Admin: 06/01/17 08:24 Dose: 2 mg Hydromorphone HCl (Dilaudid) 2 mg IM Q4H PRN PRN Reason: Pain, severe (8-10) Insulin Aspart (Novolog) 6 unit SC AC [facility] Last Admin: 06/01/17 08:23 Dose: 6 unit Insulin Detemir (Levemir) 12 unit SC Q12 [facility] Last Admin: 05/31/17 23:36 Dose: 12 unit Metoclopramide HCl (Reglan) 10 mg PO DAILY [facility] Last Admin: 06/01/17 10:53 Dose: 10 mg Nifedipine (Procardia Xl) 60 mg PO BID [facility] Last Admin: 06/01/17 10:52 Dose: 60 mg Ondansetron HCl (Zofran Inj) 4 mg IVP Q6 PRN PRN Reason: Nausea/Vomiting Last Admin: 05/31/17 04:28 Dose: 4 mg Ondansetron HCl (Zofran Odt) 4 mg PO Q8 PRN PRN Reason: Nausea/Vomiting Last Admin: 05/31/17 10:11 Dose: 4 mg Phenylephrine HCl (Willis-Synephrine 0.5% Nasal [place]) 0 ml NS Q4H PRN PRN Reason: nose bleeding Stop: 06/02/17 14:10 Last Admin: 05/30/17 22:20 Dose: 0.5 % Vitamin B Complex/Vit C/Folic Acid (Nephro-Vamshi) 1 tab PO 0800 [facility] Last Admin: 06/01/17 08:17 Dose: 1 tab - Labs Labs: 05/30/17 14:41 05/30/17 14:41 - Additional Findings Additional findings: - Constitutional Appears: Non-toxic, No Acute Distress, Chronically Ill - Head Exam Head Exam: NORMOCEPHALIC - Eye Exam Eye Exam: Normal appearance Pupil Exam: NORMAL ACCOMODATION - Respiratory Exam Respiratory Exam: Clear to Ausculation Bilateral, NORMAL BREATHING PATTERN - Cardiovascular Exam Cardiovascular Exam: REGULAR RHYTHM, +S1, +S2. absent: Gallop, Rubs - GI/Abdominal Exam GI & Abdominal Exam: Soft, Normal Bowel Sounds. absent: Tenderness - Extremities Exam Additional comments: trace blood on left toe dressing - Neurological Exam Neurological Exam: Alert, Awake, Oriented x3 - Psychiatric Exam Psychiatric exam: Normal Mood Assessment and Plan - Assessment and Plan (Free Text) Plan: ESRD on HD- MWF Fluid overloaded Consult: Dr. Beckman (help appreciated) Phoslo 667mg PO TID [facility] Ergocalciferol 50k units for Vit D deficiency History of diabetic gastroparesis BG with wide swings, due to patient irregular, poor eating habits Accuchecks QAC&HS Novolog ISS Levemir 12 units SQ Q12H Aspart 6 units SC AC Zofran 4 mg IV Q6 PRN Reglan 10 mg IV Q6 PRN Diluadid 2mg IV Q4H PRN Benadryl 25mg IV Q4H PRN HTN Urgency Max 217/118 on admission - Pressures elevated this AM see below for full history Clonidine 0.3 mg PO BID Procardia XL 60 mg PO Q12H Hx of hypertensive cardiomyopathy KAMRAN 03/02/17: No evidence of endocarditis. LVEF WNL. Cardiac Catheterization on prior admission revealed patent coronaries; hypertensive cardiomyopahy EF: 45 Clonidine 0.3 mg PO BID Procardia XL 60 mg PO Q12H Lesion on Left Foot Dr. Cardenas consulted - s/p left hallux partial nail avulsion - f/u with podiatry as outpatient Prophylactic Measure Heparin 5000 units SQ Q12H Pepcid 20 mg PO daily (renally dosed) SCDs Disposition: Discharge after dialysis Escobar Meek PGY-2 All medical management per Dr. Sexton
[2017-06-01] MEDS ORDERED: Dextrose 50% SYRINGE Inj (50 ml) IV PRN (11:05)
[2017-06-01] MEDS ORDERED: Glucagon Recombinant 1 mg Inj IM PRN (11:05)
[2017-06-01] MEDS ORDERED: DiphenhydrAMINE 50 mg/ml Inj IVP ONE ×2 (14:15→14:30)
[2017-06-01 14:37] LABS: BASO # 0.1 K/uL (0.0-0.2); BASO % 0.6 % (0.0-2.0); EOS # 2.6 K/uL (0.0-0.7); EOS % 30.8 % (0.0-4.0); HEMATOCRIT 32.1 % (34.0-47.0); LYMPH # 1.1 K/uL (1.0-4.3); LYMPH % 12.8 % (20.0-40.0); MEAN CELL VOLUME 96.2 fL (81.0-99.0); MEAN CORPUSCULAR HEMOGLOBIN 31.7 pg (27.0-31.0); MEAN CORPUSCULAR HGB CONC 32.9 g/dL (33.0-37.0); MEAN PLATELET VOLUME 8.4 fL (7.2-11.7); MONO # 0.6 K/uL (0.0-0.8); MONO % 6.7 % (0.0-10.0); NRBC % 0.1 % (0.0-2.0); PLATELET COUNT 264 K/uL (130-400); RED CELL DISTRIBUTION WIDTH 16.1 % (11.5-14.5); WHITE BLOOD COUNT 8.5 K/uL (4.8-10.8)
[2017-06-01 15:00] LABS: EOSINOPHIL 33 % (0-4); NEUTROPHIL 47 % (50-75); POTASSIUM 5.3 mmol/L (3.6-5.2); TOTAL CELLS COUNTED 100
[2017-06-01 15:02] LABS: BILIRUBIN,TOTAL 0.5 mg/dL (0.2-1.3); TOTAL PROTEIN 8.8 g/dL (6.3-8.3)
[2017-06-01 15:03] LABS: CALCIUM 7.7 mg/dl (8.6-10.4); PHOSPHOROUS 7.8 mg/dL (2.5-4.5)
[2017-06-01 15:32] VITALS: PULSE 109; RESP 16; TEMP 97.8
[2017-06-01 17:47] VITALS: BP 93/61
--- NOTE | 2017-06-01 23:44 | CP.PCM.PN ---
Subjective - Date & Time of Evaluation Date of Evaluation: 06/01/17 Time of Evaluation: 14:00 - Subjective Subjective: SEEN ON RENAL F/U SEEN ON HD .. FEELS IMPROVED GOING TO BE D/C POST HER HD WILL F/U AN OUT PT Objective - Vital Signs/Intake and Output Vital Signs (last 24 hours): Temp Pulse Resp BP Pulse Ox 97.8 F 109 H 16 93/61 L 97 06/01/17 14:20 06/01/17 14:20 06/01/17 14:20 06/01/17 17:40 06/01/17 14:20 - Labs Labs: 06/01/17 14:33 06/01/17 14:33 Assessment and Plan - Assessment and Plan (Free Text) Assessment: ESRD ON HD .. STABLE FOR D/C ANEMIA OF CKD .. H/H STABLE C/O CURRENT CARE WILL F/U AN OUT PT
[2017-06-04] MEDS ORDERED: Ergocalciferol 50,000 Intl Units Cap PO SCH (10:00)
== END 2017-06-01 19:48 | disposition home or self-care (01) | DRG 18 ==
LOC: C.ER 12:03 → C.9E 13:06 → C.5S 16:27 → C.9E 16:42 → C.5S 16:52 → OBSVTOIN 05-30 17:39
PROVIDERS: ADMIT Internal Medicine Nephrology; ATTEND Internal Medicine Nephrology
PROC: 0HDRXZZ Extraction of Toe Nail, External Approach (ICD-10-PCS; principal; 2017-05-31)
PROC: 5A1D70Z Performance of Urinary Filtration, Intermittent, Less than 6 Hours Per Day (ICD-10-PCS; 2017-05-31)
DX: E10.43 Type 1 diabetes mellitus with diabetic autonomic (poly)neuropathy (principal); I13.2 Hypertensive heart and chronic kidney disease with heart failure and with stage 5 chronic kidney disease, or end stage renal disease; I43 Cardiomyopathy in diseases classified elsewhere; N18.6 End stage renal disease; E10.22 Type 1 diabetes mellitus with diabetic chronic kidney disease; K86.1 Other chronic pancreatitis; I50.9 Heart failure, unspecified; K31.84 Gastroparesis; D63.1 Anemia in chronic kidney disease; E03.9 Hypothyroidism, unspecified; E55.9 Vitamin D deficiency, unspecified; E78.00 Pure hypercholesterolemia, unspecified; G47.30 Sleep apnea, unspecified; I16.0 Hypertensive urgency; J45.909 Unspecified asthma, uncomplicated; L03.032 Cellulitis of left toe; R04.0 Epistaxis; Z87.01 Personal history of pneumonia (recurrent); Z87.11 Personal history of peptic ulcer disease; Z79.4 Long term (current) use of insulin; Z87.442 Personal history of urinary calculi; Z95.5 Presence of coronary angioplasty implant and graft; Z99.2 Dependence on renal dialysis

== ENCOUNTER 2017-06-17 17:19 | Inpatient (IN) | payer MEDICAID ==
[2017-06-17 17:26] VITALS: BMI 25.6
--- NOTE | 2017-06-17 17:46 | C.PDOC ---
History Of Present Illness 31 year old female, history of ESRD on dialysis, presents to the ED for evaluation of shortness of breath since last night. She complains of mild abdominal pain, leg cramps, and polydipsia. She was last dialyzed 2 days ago. Time Seen by Provider: 06/17/17 17:31 Chief Complaint (Nursing): Shortness Of Breath History Per: Patient History/Exam Limitations: no limitations Onset/Duration Of Symptoms: Hrs Exacerbating Factor(s): Laying Flat Past Medical History Reviewed: Historical Data, Nursing Documentation, Vital Signs Vital Signs: Last Vital Signs Temp 98.5 F 06/17/17 17:25 Pulse 86 06/17/17 18:30 Resp 12 06/17/17 18:30 BP 222/115 H 06/17/17 18:30 Pulse Ox 100 06/17/17 18:30 - Medical History PMH: Anemia, Anxiety, Asthma, Bronchitis, CHF, Diabetes, Fractures (Sep 2012 L foot), Gastritis, Gastrointestinal Ulcer (gastroparesis), Gall Bladder Disease ( gallbladder removed), Hepatitis, HTN, Hypercholesterolemia, Hyperthyroidism, Hypothyroidism, Kidney Stones, Pancreatitis (chronic), Peripheral Edema, Pneumonia, End Stage Renal Disease, Chronic Kidney Disease, Seizures, Sleep Apnea, Chronic Pain Surgical History: Cholecystectomy, Coronary Stent - [facility] Procedures (05/30/17) ASSISTANCE WITH RESPIRATORY VENTILATION, 24-96 HRS, CPAP (11/27/16) CAUTERY TO STOP EPISTAX (03/22/14) CENTRAL VENOUS CATHETER PLACEMENT WITH GUIDANCE (11/06/14) DIALYSIS ARTERIOVENOSTOM (01/10/14) DRAINAGE OF RIGHT FOOT SKIN, EXTERNAL APPROACH (07/17/16) DRAINAGE OF RIGHT LOWER ARM SKIN, EXTERNAL APPROACH (05/25/16) ESOPHAGOGASTRODUODENOSCOPY [EGD] W/CLOSED BIOPSY (03/03/14) EXCISION OF STOMACH, ENDO, DIAGN (05/09/16) EXTIRPATE MATTER FROM R LOW ARM SUBCU/FASCIA, PERC (05/25/16) EXTRACTION OF RIGHT FOOT SKIN, EXTERNAL APPROACH (05/25/16) EXTRACTION OF TOE NAIL, EXTERNAL APPROACH (05/30/17) FLEXIBLE SIGMOIDOSCOPY (10/26/14) FLUOROSCOPY OF R JUGULAR VEIN USING L OSM CONTRAST, GUIDANCE (12/13/15) FLUOROSCOPY OF RIGHT SUBCLAVIAN VEIN, GUIDANCE (08/07/16) HEMODIALYSIS (04/05/15) INJECT INSULIN (12/23/12) INJECT/INFUSE ELECTROLYT (12/23/12) INJECT/INFUSE NEC (01/17/15) INSERT INFUSION DEV IN R INT JUGULAR VEIN, PERC (02/23/16) INSERTION OF INFUSION DEV INTO R BASILIC VEIN, PERC APPROACH (04/18/16) INSERTION OF INFUSION DEV INTO R BRACH VEIN, PERC APPROACH (02/19/17) INSERTION OF INFUSION DEV INTO R SUBCLAV VEIN, PERC APPROACH (08/29/16) INSERTION OF INFUSION DEV INTO SUP VENA CAVA, PERC APPROACH (05/25/16) INSERTION OF INFUSION DEVICE INTO R ATRIUM, PERC APPROACH (12/13/15) INSERTION OF VAD INTO CHEST SUBCU/FASCIA, OPEN APPROACH (12/13/15) MEASURE OF CARDIAC SAMPL & PRESSURE, L HEART, PERC APPROACH (10/09/16) OTHER ENDOSCOPY OF SM INTEST (08/25/14) PACKED CELL TRANSFUSION (10/26/14) PERFORMANCE OF URINARY FILTRATION, MULTIPLE (03/19/17) PERFORMANCE OF URINARY FILTRATION, SINGLE (11/27/16) PLAIN RADIOGRAPHY OF LEFT HEART USING OTHER CONTRAST (10/09/16) PLAIN RADIOGRAPHY OF MULT COR ART USING OTH CONTRAST (10/09/16) PLICATION OF VENA CAVA (03/22/14) POST NASAL PAC FOR EPIST (03/22/14) REMOVAL OF VAD FROM TRUNK SUBCU/FASCIA, OPEN APPROACH (02/23/16) [facility]UNT (03/03/14) THERAPEUTIC ERYTHROCYTAPHERESIS (10/26/14) TRANSFUSE NONAUT RED BLOOD CELLS IN PERIPH VEIN, PERC (02/19/17) ULTRASONOGRAPHY OF RIGHT AND LEFT HEART, TRANSESOPHAGEAL (02/19/17) ULTRASONOGRAPHY OF RIGHT SUBCLAVIAN VEIN, GUIDANCE (08/29/16) ULTRASONOGRAPHY OF RIGHT UPPER EXTREMITY VEINS, GUIDANCE (02/19/17) VACCINATION NEC (10/26/14) VENOUS CATHETERIZATION FOR RENAL DIALYSIS (03/03/14) Family History: States: Unknown Family Hx - Social History Hx Tobacco Use: No Hx Alcohol Use: No Hx Substance Use: Yes - Immunization History Hx Tetanus Toxoid Vaccination: No Hx Influenza Vaccination: Yes Hx Pneumococcal Vaccination: No Review Of Systems Respiratory: Positive for: Shortness of Breath Gastrointestinal: Positive for: Abdominal Pain Musculoskeletal: Positive for: Leg Pain (cramping) Physical Exam - Physical Exam Appears: Non-toxic, No Acute Distress Skin: Warm, Dry Head: Atraumatic, Normacephalic Eye(s): bilateral: Normal Inspection Ear(s): Bilateral: Normal Throat: Normal Neck: Normal ROM, Supple Cardiovascular: Rhythm Regular (Rate Regular) Respiratory: Normal Breath Sounds (Clear to ascultation bilaterally ) Gastrointestinal/Abdominal: Soft, No Tenderness Extremity: Other (Left AC fistula with good bruit and thrill) Neurological/Psych: Oriented x3 ED Course And Treatment O2 Sat by Pulse Oximetry: 98 - Radiology CXR: Interpreted by Me, Viewed By Me, Read By Radiologist CXR Interpretation: Yes: Other (Underpenetrated but no active pulmonary disease , cardiac silhouette is borderline for cardiomegaly.) Medical Decision Making Medical Decision Making: Impression: Hypertensive crisis Plan: Will admit the patient. IM paged. Patient to be admitted. Disposition - Disposition Disposition: HOSPITALIZED Disposition Time: 18:41 Condition: FAIR - Clinical Impression Clinical Impression: Hypertensive crisis without congestive heart failure - Scribe Statement The provider has reviewed the documentation as recorded by the Arun Ellis Provider Attestation: Dr. Christina Louis Decision To Admit - Pt Status Changed To: Hospital Disposition Of: Inpatient - Admit Certification Admit to Inpatient:: After my assessment, the patient will require hospitalization for at least two midnights. This is because of the severity of symptoms shown, intensity of services needed, and/or the medical risk in this patient being treated as an outpatient. - InPatient: Physician Admission Certification: I certify that this patient requires 2 or more midnights of care for the following reason:: hypertensive crisis - . Bed Request Type: Telemetry Admitting Physician: Kim Sexton Patient Diagnosis: Hypertensive crisis without congestive heart failure
--- NOTE | 2017-06-17 17:55 | RAD ---
HISTORY: SOB COMPARISON: Chest x-ray performed 04/03/15 TECHNIQUE: Chest, one view. FINDINGS: LUNGS: Interstitial prominence may reflect infection or edema. PLEURA: No significant pleural effusion identified. No definite pneumothorax . CARDIOVASCULAR: Cardiomegaly. OSSEOUS STRUCTURES: No acute osseous abnormality identified. VISUALIZED UPPER ABDOMEN: Unremarkable. OTHER FINDINGS: Retained catheter fragment is again seen at the right subclavian region. IMPRESSION: Mild interstitial prominence may reflect infection or edema. Cardiomegaly.
[2017-06-17 18:48] LABS: BASO # 0.1 K/uL (0.0-0.2); BASO % 1.5 % (0.0-2.0); EOS # 0.9 K/uL (0.0-0.7); EOS % 13.1 % (0.0-4.0); HEMATOCRIT 31.3 % (34.0-47.0); LYMPH # 1.1 K/uL (1.0-4.3); LYMPH % 16.2 % (20.0-40.0); MEAN CELL VOLUME 95.6 fL (81.0-99.0); MEAN CORPUSCULAR HEMOGLOBIN 31.7 pg (27.0-31.0); MEAN CORPUSCULAR HGB CONC 33.1 g/dL (33.0-37.0); MEAN PLATELET VOLUME 8.1 fL (7.2-11.7); MONO # 0.3 K/uL (0.0-0.8); MONO % 4.7 % (0.0-10.0); NRBC % 0.1 % (0.0-2.0); RED CELL DISTRIBUTION WIDTH 16.3 % (11.5-14.5); WHITE BLOOD COUNT 7.1 K/uL (4.8-10.8)
[2017-06-17 18:57] LABS: POTASSIUM 4.9 mmol/L (3.6-5.2)
[2017-06-17 18:59] LABS: ALB/GLOB RATIO 1.1 (1.0-2.1); BILIRUBIN,TOTAL 0.6 mg/dL (0.2-1.3); TOTAL PROTEIN 8.3 g/dL (6.3-8.3)
[2017-06-17 19:00] LABS: CALCIUM 6.5 mg/dl (8.6-10.4)
[2017-06-17] MEDS: HYDROmorphone 1 mg/ml ISec IVP PRN (19:26)
--- NOTE | 2017-06-17 21:08 | CP.PCM.HP ---
History of Present Illness - History of Present Illness History of Present Illness: A 31-year-old female with an PMHanemia, anxiety, asthma, CHF, DM, hepatitis, HTN, hypercholesterolemia, chronic pancreatitis, ESRD presents to the ER for C/O dyspnea since last night. C/Odyspnea since last night. Insidious in onset, progressive, occurred while patient was sleeping, occurs at rest, particularly with by medications. C/Elijah cramps since last night. C/Oabdominal pain since last night. Insidious in onset, nonprogressive, vague , dull aching type, generalized all over the abdomen but more towards the epigastric region, not associated with meals. No C/Ochest pain, palpitation, cough, PND, diarrhea, hematuria, bleeding from any other sites. She was last dialyzed 2 days ago. Present on Admission - Present on Admission Any Indicators Present on Admission: No Past Patient History - Infectious Disease Hx of Infectious Diseases: None - Tetanus Immunizations Tetanus Immunization: Unknown - Past Medical History & Family History Past Medical History?: Yes - Past Social History Smoking Status: Never Smoked - CARDIAC Hx Congestive Heart Failure: Yes Hx Hypercholesterolemia: Yes Hx Hypertension: Yes Hx Peripheral Edema: Yes - PULMONARY Hx Asthma: Yes Hx Bronchitis: Yes Hx Pneumonia: Yes Hx Sleep Apnea: Yes - NEUROLOGICAL Hx Seizures: Yes - HEENT Hx HEENT Problems: Yes Hx Cataracts: Yes Hx Glaucoma: Yes - RENAL Hx Chronic Kidney Disease: Yes Hx Kidney Stones: Yes - ENDOCRINE/METABOLIC Hx Hyperthyroidism: Yes Hx Hypothyroidism: Yes - HEMATOLOGICAL/ONCOLOGICAL Hx Anemia: Yes - INTEGUMENTARY Hx Dermatological Problems: Yes Other/Comment: DRY ITCHY SKIN ;multiple/generalized dark spots on skin. left toe blister - MUSCULOSKELETAL/RHEUMATOLOGICAL Hx Fractures: Yes (Sep 2012 L foot) - GASTROINTESTINAL Hx Gall Bladder Disease: Yes (gallbladder removed) Hx Gastritis: Yes Hx Pancreatitis: Yes (chronic) - PSYCHIATRIC Hx Anxiety: Yes Hx Substance Use: Yes - SURGICAL HISTORY Hx Cholecystectomy: Yes Hx Coronary Stent: Yes - ANESTHESIA Hx Anesthesia: Yes Hx Anesthesia Reactions: No Hx Malignant Hyperthermia: No Meds Home Medications: Home Medication List Medication Instructions Recorded Confirmed Type Pantoprazole [Protonix EC Tab] 40 mg PO DAILY #30 ect 06/27/17 Rx Vitamin B Complex/Vit C/Folic 1 tab PO 0800 #30 tab 11/15/17 Rx [Nephro-Vamshi] cloNIDine [Catapres] 0.2 mg PO BID #30 tab 06/27/17 Rx fentaNYL 12 mcg/hr [Duragesic 1 patch TD Q72H #1 patch 06/27/17 Rx Patch 12 mcg/hr] Allergies/Adverse Reactions: Allergies Allergy/AdvReac Type Severity Reaction Status Date / Time ketorolac tromethamine Allergy RASH Verified 05/28/17 12:25 [From Toradol] latex Allergy RASH Verified 05/28/17 12:25 morphine Allergy RASH Verified 05/28/17 12:25 tramadol Allergy RASH Verified 05/28/17 12:25 Results - Vital Signs Recent Vital Signs: Last Vital Signs Temp 98 F 06/17/17 19:38 Pulse 80 06/17/17 20:39 Resp 18 06/17/17 20:39 BP 158/86 H 06/17/17 20:39 Pulse Ox 100 06/17/17 20:39 - Labs Result Diagrams: 06/23/17 15:42 06/23/17 15:42 Labs: Laboratory Results - last 24 hr 06/17/17 06/17/17 18:33 18:33 WBC 7.1 RBC 3.27 L Hgb 10.4 L Hct 31.3 L MCV 95.6 MCH 31.7 H MCHC 33.1 RDW 16.3 H Plt Count 203 MPV 8.1 Neut % (Auto) 64.5 Lymph % (Auto) 16.2 L Henry % (Auto) 4.7 Eos % (Auto) 13.1 H Baso % (Auto) 1.5 Neut # 4.6 Lymph # 1.1 Henry # 0.3 Eos # 0.9 H Baso # 0.1 Sodium 133 Potassium 4.9 Chloride 94 L Carbon Dioxide 20 L Anion Gap 24 H BUN 97 H Creatinine 8.5 H* Est GFR ( Amer) 7 Est GFR (Non-Af Amer) 6 Random Glucose 278 H Calcium 6.5 L Total Bilirubin 0.6 AST 16 ALT 24 Alkaline Phosphatase 142 H Total Protein 8.3 Albumin 4.4 Globulin 3.9 Albumin/Globulin Ratio 1.1
[2017-06-17] MEDS ORDERED: DiphenhydrAMINE 50 mg/ml Inj IVP PRN (21:56)
[2017-06-17] MEDS: (Novolog) Insulin Aspart, Recombinant 100 u/ml 10 ml vial SC SCH (22:04)
[2017-06-17] MEDS ORDERED: DiphenhydrAMINE 50 mg/ml Inj ONE (22:09)
[2017-06-17] MEDS: Insulin Detemir 100 units/ml Vial (Levemir) SC SCH (22:21)
[2017-06-18] MEDS ORDERED: DiphenhydrAMINE 50 mg/ml Inj IVP STA (00:33)
[2017-06-18] MEDS: HYDROmorphone 1 mg/ml ISec IVP PRN ×5 (00:57→21:09)
[2017-06-18] MEDS ORDERED: (Novolog) Insulin Aspart, Recombinant 100 u/ml 10 ml vial SC SCH (07:30)
[2017-06-18] MEDS: (Novolog) Insulin Aspart, Recombinant 100 u/ml 10 ml vial SC SCH ×4 (07:30→22:20)
--- NOTE | 2017-06-18 08:25 | CP.PCM.PN ---
Subjective - Date & Time of Evaluation Date of Evaluation: 06/18/17 Time of Evaluation: 09:00 - Subjective Subjective: clinically same Objective - Vital Signs/Intake and Output Vital Signs (last 24 hours): Temp Pulse Resp BP Pulse Ox 98.9 F 110 H 20 168/95 H 96 06/18/17 05:15 06/18/17 05:15 06/18/17 05:15 06/18/17 05:15 06/18/17 05:15 Intake and Output: 06/18/17 06/18/17 06:59 18:59 Intake Total 50 Balance 50 - Medications Medications: Current Medications Calcium Acetate (Phoslo) 667 mg PO TIDCC [facility] Last Admin: 06/18/17 08:18 Dose: Not Given Clonidine HCl (Catapres) 0.3 mg PO BID [facility] Diphenhydramine HCl (Benadryl) 25 mg IVP Q8H PRN PRN Reason: Itching / Pruritus Last Admin: 06/17/17 22:21 Dose: 25 mg Enoxaparin Sodium (Lovenox) 40 mg SC DAILY [facility] Ergocalciferol (Drisdol 50,000 Intl Units Cap) 50,000 cap PO QWK [facility] Gabapentin (Neurontin) 300 mg PO BID [facility] Hydralazine HCl (Apresoline) 10 mg IVP Q8H [facility] Last Admin: 06/18/17 05:09 Dose: 10 mg Hydromorphone HCl (Dilaudid) 1 mg IVP Q4H PRN PRN Reason: Pain, moderate (4-7) Last Admin: 06/18/17 05:08 Dose: 1 mg Insulin Aspart (Novolog) 1 unit SC ACHS [facility] PRN Reason: Protocol Last Admin: 06/17/17 22:04 Dose: Not Given Insulin Detemir (Levemir) 12 unit SC Q12 [facility] Last Admin: 06/17/17 22:21 Dose: 12 unit Metoclopramide HCl (Reglan) 10 mg PO DAILY [facility] Nifedipine (Procardia Xl) 60 mg PO BID [facility] Ondansetron HCl (Zofran Odt) 4 mg PO Q8 PRN PRN Reason: Nausea/Vomiting Last Admin: 06/17/17 22:52 Dose: 4 mg Pantoprazole Sodium (Protonix Ec Tab) 40 mg PO DAILY [facility] - Labs Labs: 06/17/17 18:33 11/05/17 18:33 - Constitutional Appears: Well - Head Exam Head Exam: ATRAUMATIC, NORMAL INSPECTION, NORMOCEPHALIC - Eye Exam Eye Exam: EOMI, Normal appearance, PERRL Pupil Exam: NORMAL ACCOMODATION, PERRL - ENT Exam ENT Exam: Mucous Membranes Moist, Normal Exam - Neck Exam Neck Exam: Full ROM, Normal Inspection. absent: Lymphadenopathy - Respiratory Exam Respiratory Exam: Decreased Breath Sounds - Cardiovascular Exam Cardiovascular Exam: REGULAR RHYTHM, +S1, +S2. absent: Murmur - GI/Abdominal Exam GI & Abdominal Exam: Soft, Normal Bowel Sounds. absent: Tenderness - Rectal Exam Rectal Exam: Deferred Assessment and Plan (1) Hypertensive crisis without congestive heart failure Status: Acute (2) Accelerated essential hypertension Status: Acute (3) Acute hyperkalemia Status: Acute (4) Acute renal failure Status: Acute (5) Adjustment disorder with anxiety Status: Acute (6) Bacteremia Status: Acute (7) Catheter-related bloodstream infection (CRBSI) Status: Acute (8) Cellulitis Status: Acute (9) Chest pain Status: Acute (10) Chronic congestive heart failure Status: Acute (11) Chronic intractable pain Status: Acute (12) Chronic pain Status: Acute (13) Congestive heart failure Status: Acute (14) Constipation Status: Acute (15) DM w/o complication type I Status: Acute (16) DVT (deep venous thrombosis) Status: Acute (17) Dehydration fever Status: Acute (18) Dyspnea Status: Acute (19) ESRD (end stage renal disease) on dialysis Status: Acute (20) Epistaxis Status: Acute (21) Esophagitis Status: Acute (22) Fever Status: Acute (23) Fluid overload Status: Acute (24) Foot ulcer Status: Acute (25) Gastric pain Status: Acute (26) 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 Status: Acute (27) Herpes Status: Acute (28) History of diabetic gastroparesis Status: Acute (29) Hyperglycemia Status: Acute (30) Hyperglycemia without ketosis Status: Acute (31) Hyperkalemia Status: Acute (32) Hypertension, malignant Status: Acute (33) Hypertensive urgency Status: Acute (34) Hypoglycemia Status: Acute (35) Infection due to central venous catheter exit site Status: Acute (36) Infection, dialysis vascular access Status: Acute (37) Intractable vomiting Status: Acute (38) Intractable vomiting Status: Acute (39) Leg swelling Status: Acute (40) Leukocytosis Status: Acute (41) Leukocytosis Status: Acute (42) Medical assessment Status: Acute (43) Narcotic addiction Status: Acute (44) Nausea Status: Acute (45) Opioid dependence Status: Acute (46) Other complication of arteriovenous dialysis fistula Status: Acute (47) Positive blood culture Status: Acute (48) Prophylactic measure Status: Acute (49) Pulmonary edema Status: Acute (50) Pulmonary edema Status: Acute (51) Renal azotemia Status: Acute (52) Renal failure Status: Acute (53) Renal function tests abnormal Status: Acute (54) Respiratory distress Status: Acute (55) Sensorineural deafness, unilateral Status: Acute (56) Sepsis Status: Acute (57) Shortness of breath Status: Acute (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 Status: Acute (59) Tearfulness Status: Acute (60) Threatening to others Status: Acute (61) UTI (lower urinary tract infection) Status: Acute (62) UTI (urinary tract infection) Status: Acute (63) Uncontrolled diabetes mellitus Status: Acute (64) Urinary tract infection symptoms Status: Acute (65) Vaginal discharge Status: Acute (66) Viral bronchitis Status: Acute (67) Vomiting Status: Acute (68) Vomiting bile Status: Acute (69) Abdominal discomfort, generalized Status: Chronic (70) Abdominal pain Status: Chronic (71) Abdominal pain Status: Chronic (72) Abdominal pain in female Status: Chronic (73) Anemia Status: Chronic (74) Anxiety Status: Chronic (75) CHF (congestive heart failure) Status: Chronic (76) Chronic abdominal pain Status: Chronic (77) Chronic pruritus Status: Chronic (78) Chronic, continuous use of opioids Status: Chronic (79) Constipation Status: Chronic (80) Dependence on renal dialysis Status: Chronic (81) Dependency on pain medication Status: Chronic (82) Diabetes Status: Chronic (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, managed as type 2 Status: Chronic (84) Drug-seeking behavior Status: Chronic (85) End stage renal disease Status: Chronic (86) End stage renal disease on dialysis Status: Chronic (87) Gastroparesis Status: Chronic (88) Hemodialysis patient Status: Chronic (89) History of osteomyelitis Status: Chronic (90) Hypertension Status: Chronic (91) Hypertension associated with diabetes Status: Chronic (92) Intractable abdominal pain Status: Chronic (93) Intractable nausea and vomiting Status: Chronic (94) Pain Status: Chronic (95) Skin lesions, generalized Status: Chronic (96) Type 1 diabetes Status: Chronic - Assessment and Plan (Free Text) Plan: Patient examined. EKG suggestive of left atrial enlargement. Prolonged QT. Chest x-ray suggestive of cardiomegaly and mild interstitial prominence suggestive of infection or edema. Continue antidiabetic antihypertensive medications. Continue metoclopramide. Continue supportive care.
[2017-06-18] MEDS: Ergocalciferol 50,000 Intl Units Cap PO SCH (10:00)
[2017-06-18] MEDS: NIFEdipine 60 mg ER Tab PO SCH ×2 (10:00→17:41)
[2017-06-18] MEDS ORDERED: Enoxaparin 40 mg Syringe SC SCH (10:00)
[2017-06-18] MEDS: Insulin Detemir 100 units/ml Vial (Levemir) SC SCH ×2 (10:00→21:09)
[2017-06-18] MEDS: Pantoprazole 40 mg EC Tab PO SCH (10:00)
--- NOTE | 2017-06-18 12:07 | CARD ---
APPROVED REPORT EKG Measurement Heart [id number] <Conclusion> Normal sinus rhythm Possible Left atrial enlargement Prolonged QT Abnormal ECG
[2017-06-18] MEDS ORDERED: HYDROmorphone 1 mg/ml ISec IVP STA (16:05)
[2017-06-18] MEDS ORDERED: DiphenhydrAMINE 50 mg/ml Inj IVP ONE (16:15)
[2017-06-18 16:23] LABS: INR 1.1
--- NOTE | 2017-06-18 19:09 | CP.PCM.PN ---
Subjective - Date & Time of Evaluation Date of Evaluation: 06/18/17 Time of Evaluation: 15:00 - Subjective Subjective: REASONS FOR CONSULT : ESRD ON HD M W F ACUTE PULMONARY EDEMA .. REQIURING STAT HD ANEMIA OF CKD ELECTROLYTES ABNORMALITIES ALL EMR REVIEWED .. PT GAUTAM SEEN AND EXAMINED ON HD PT WITH MMP AND FREQEUNT ADMISSIONS .. CAME IN WITH SOB AND UNCONTROLED BP Objective - Vital Signs/Intake and Output Vital Signs (last 24 hours): Temp Pulse Resp BP Pulse Ox 97.3 F L 94 H 24 186/116 H 100 06/18/17 15:20 06/18/17 16:59 06/18/17 16:59 06/18/17 18:20 06/18/17 15:20 Intake and Output: 06/18/17 06/19/17 18:59 06:59 Intake Total 80 Balance 80 - Medications Medications: Current Medications Calcium Acetate (Phoslo) 667 mg PO TIDCC [facility] Last Admin: 06/18/17 17:46 Dose: Not Given Clonidine HCl (Catapres) 0.3 mg PO BID [facility] Last Admin: 06/18/17 17:40 Dose: 0.3 mg Ergocalciferol (Drisdol 50,000 Intl Units Cap) 50,000 cap PO QWK [facility] Last Admin: 06/18/17 10:00 Dose: Not Given Gabapentin (Neurontin) 300 mg PO BID [facility] Last Admin: 06/18/17 17:42 Dose: 300 mg Heparin Sodium (Porcine) (Heparin) 5,000 units SC Q12 [facility] Hydralazine HCl (Apresoline) 10 mg IVP Q8H [facility] Last Admin: 06/18/17 14:00 Dose: Not Given Hydromorphone HCl (Dilaudid) 1 mg IVP Q4H PRN PRN Reason: Pain, moderate (4-7) Insulin Aspart (Novolog) 0 unit SC ACHS [facility] PRN Reason: Protocol Insulin Detemir (Levemir) 12 unit SC Q12 [facility] Last Admin: 06/18/17 10:00 Dose: Not Given Metoclopramide HCl (Reglan) 10 mg PO DAILY [facility] Last Admin: 06/18/17 10:00 Dose: Not Given Nifedipine (Procardia Xl) 60 mg PO BID [facility] Last Admin: 06/18/17 17:41 Dose: 60 mg Ondansetron HCl (Zofran Odt) 4 mg PO Q8 PRN PRN Reason: Nausea/Vomiting Last Admin: 06/18/17 13:38 Dose: 4 mg Pantoprazole Sodium (Protonix Ec Tab) 40 mg PO DAILY [facility] Last Admin: 06/18/17 10:00 Dose: Not Given - Labs Labs: 06/17/17 18:33 06/17/17 18:33 PT 11.8 SECONDS (9.7-12.2) 06/18/17 16:00 INR 1.1 06/18/17 16:00 APTT 34 SECONDS (21-34) 06/18/17 16:00
[2017-06-18] MEDS ORDERED: HYDROmorphone 1 mg/ml ISec IVP PRN (19:24)
[2017-06-19] MEDS: HYDROmorphone 1 mg/ml ISec IVP PRN ×6 (02:52→23:04)
[2017-06-19] MEDS ORDERED: DiphenhydrAMINE 50 mg/ml Inj IVP STA ×2 (03:01→16:23)
[2017-06-19] MEDS: (Novolog) Insulin Aspart, Recombinant 100 u/ml 10 ml vial SC SCH ×4 (08:19→21:48)
[2017-06-19] MEDS: Pantoprazole 40 mg EC Tab PO SCH (09:49)
[2017-06-19] MEDS: Insulin Detemir 100 units/ml Vial (Levemir) SC SCH ×2 (09:49→21:49)
[2017-06-19] MEDS: NIFEdipine 60 mg ER Tab PO SCH ×2 (09:49→18:57)
[2017-06-19] MEDS ORDERED: DiphenhydrAMINE 50 mg/ml Inj IVP ONE (11:01)
[2017-06-19] MEDS: DiphenhydrAMINE 50 mg/ml Inj IVP PRN ×3 (15:22→23:04)
--- NOTE | 2017-06-19 19:11 | CP.PCM.PN ---
Subjective - Date & Time of Evaluation Date of Evaluation: 06/19/17 Time of Evaluation: 14:00 - Subjective Subjective: SEEN ON RENAL F/U SEEN ON HD SITTING ON THE EDGE OF BED C/O LOWER BACK PAIN AND UPPER ABDO PAIN HD IS PROGRESSING WELL .. GOT HD ALSO YESTERDAY Objective - Vital Signs/Intake and Output Vital Signs (last 24 hours): Temp Pulse Resp BP Pulse Ox 97.7 F 94 H 16 95/46 L 100 06/19/17 15:50 06/19/17 17:30 06/19/17 17:30 06/19/17 17:30 06/19/17 17:30 - Medications Medications: Current Medications Calcium Acetate (Phoslo) 667 mg PO TIDCC [facility] Last Admin: 06/19/17 19:00 Dose: 667 mg Clonidine HCl (Catapres) 0.3 mg PO BID [facility] Last Admin: 06/19/17 18:57 Dose: Not Given Diphenhydramine HCl (Benadryl) 25 mg IVP Q4 PRN PRN Reason: Itching / Pruritus Last Admin: 06/19/17 15:22 Dose: 25 mg Ergocalciferol (Drisdol 50,000 Intl Units Cap) 50,000 cap PO QWK [facility] Last Admin: 06/18/17 10:00 Dose: Not Given Gabapentin (Neurontin) 300 mg PO BID [facility] Heparin Sodium (Porcine) (Heparin) 5,000 units SC Q12 [facility] Last Admin: 06/19/17 09:53 Dose: Not Given Hydralazine HCl (Apresoline) 10 mg IVP Q8H [facility] Last Admin: 06/19/17 13:50 Dose: 10 mg Hydromorphone HCl (Dilaudid) 2 mg IVP Q4H PRN PRN Reason: Pain, severe (8-10) Last Admin: 06/19/17 15:23 Dose: 2 mg Insulin Aspart (Novolog) 0 unit SC ACHS [facility] PRN Reason: Protocol Last Admin: 06/19/17 18:57 Dose: Not Given Insulin Detemir (Levemir) 12 unit SC Q12 [facility] Last Admin: 06/19/17 09:49 Dose: 12 unit Metoclopramide HCl (Reglan) 10 mg PO DAILY [facility] Last Admin: 06/19/17 09:49 Dose: 10 mg Nifedipine (Procardia Xl) 60 mg PO BID [facility] Last Admin: 06/19/17 18:57 Dose: Not Given Ondansetron HCl (Zofran Odt) 4 mg PO Q8 PRN PRN Reason: Nausea/Vomiting Last Admin: 06/18/17 13:38 Dose: 4 mg Pantoprazole Sodium (Protonix Ec Tab) 40 mg PO DAILY [facility] Last Admin: 06/19/17 09:49 Dose: 40 mg - Labs Labs: 06/17/17 18:33 06/17/17 18:33 PT 11.8 SECONDS (9.7-12.2) 06/18/17 16:00 INR 1.1 06/18/17 16:00 APTT 34 SECONDS (21-34) 06/18/17 16:00 Assessment and Plan - Assessment and Plan (Free Text) Assessment: ESRD ON HD M W F AND SAT ABENIA OF CKD .. H/H STABLE MULTIPLE CO MORBIDITIES P : C/O CURRENT CARE C/O PRESENT MANAGEMENT
--- NOTE | 2017-06-19 19:52 | CP.PCM.PN ---
Subjective - Date & Time of Evaluation Date of Evaluation: 06/19/17 Time of Evaluation: 08:40 - Subjective Subjective: clinically same Objective - Vital Signs/Intake and Output Vital Signs (last 24 hours): Temp Pulse Resp BP Pulse Ox 97.7 F 94 H 18 97/56 L 100 06/19/17 15:50 06/19/17 18:20 06/19/17 18:20 06/19/17 18:20 06/19/17 18:20 - Medications Medications: Current Medications Calcium Acetate (Phoslo) 667 mg PO TIDCC [facility] Last Admin: 06/19/17 19:00 Dose: 667 mg Clonidine HCl (Catapres) 0.3 mg PO BID [facility] Last Admin: 06/19/17 18:57 Dose: Not Given Diphenhydramine HCl (Benadryl) 25 mg IVP Q4 PRN PRN Reason: Itching / Pruritus Last Admin: 06/19/17 19:14 Dose: 25 mg Ergocalciferol (Drisdol 50,000 Intl Units Cap) 50,000 cap PO QWK [facility] Last Admin: 06/18/17 10:00 Dose: Not Given Gabapentin (Neurontin) 300 mg PO BID [facility] Heparin Sodium (Porcine) (Heparin) 5,000 units SC Q12 [facility] Last Admin: 06/19/17 09:53 Dose: Not Given Hydralazine HCl (Apresoline) 10 mg IVP Q8H [facility] Last Admin: 06/19/17 13:50 Dose: 10 mg Hydromorphone HCl (Dilaudid) 2 mg IVP Q4H PRN PRN Reason: Pain, severe (8-10) Last Admin: 06/19/17 19:14 Dose: 2 mg Insulin Aspart (Novolog) 0 unit SC ACHS [facility] PRN Reason: Protocol Last Admin: 06/19/17 18:57 Dose: Not Given Insulin Detemir (Levemir) 12 unit SC Q12 [facility] Last Admin: 06/19/17 09:49 Dose: 12 unit Metoclopramide HCl (Reglan) 10 mg PO DAILY [facility] Last Admin: 06/19/17 09:49 Dose: 10 mg Nifedipine (Procardia Xl) 60 mg PO BID [facility] Last Admin: 06/19/17 18:57 Dose: Not Given Ondansetron HCl (Zofran Odt) 4 mg PO Q8 PRN PRN Reason: Nausea/Vomiting Last Admin: 06/18/17 13:38 Dose: 4 mg Pantoprazole Sodium (Protonix Ec Tab) 40 mg PO DAILY [facility] Last Admin: 06/19/17 09:49 Dose: 40 mg - Labs Labs: 06/17/17 18:33 06/17/17 18:33 PT 11.8 SECONDS (9.7-12.2) 06/18/17 16:00 INR 1.1 06/18/17 16:00 APTT 34 SECONDS (21-34) 06/18/17 16:00 - Constitutional Appears: Well - Head Exam Head Exam: ATRAUMATIC, NORMAL INSPECTION, NORMOCEPHALIC - Eye Exam Eye Exam: EOMI, Normal appearance, PERRL Pupil Exam: NORMAL ACCOMODATION, PERRL - ENT Exam ENT Exam: Mucous Membranes Moist, Normal Exam - Neck Exam Neck Exam: Full ROM, Normal Inspection. absent: Lymphadenopathy - Respiratory Exam Respiratory Exam: Decreased Breath Sounds - Cardiovascular Exam Cardiovascular Exam: REGULAR RHYTHM, +S1, +S2 - GI/Abdominal Exam GI & Abdominal Exam: Soft, Diminished Bowel Sounds - Rectal Exam Rectal Exam: Deferred Assessment and Plan (1) Hypertensive crisis without congestive heart failure Status: Acute (2) Accelerated essential hypertension Status: Acute (3) Acute hyperkalemia Status: Acute (4) Acute renal failure Status: Acute (5) Adjustment disorder with anxiety Status: Acute (6) Bacteremia Status: Acute (7) Catheter-related bloodstream infection (CRBSI) Status: Acute (8) Cellulitis Status: Acute (9) Chest pain Status: Acute (10) Chronic congestive heart failure Status: Acute (11) Chronic intractable pain Status: Acute (12) Chronic pain Status: Acute (13) Congestive heart failure Status: Acute (14) Constipation Status: Acute (15) DM w/o complication type I Status: Acute (16) DVT (deep venous thrombosis) Status: Acute (17) Dehydration fever Status: Acute (18) Dyspnea Status: Acute (19) ESRD (end stage renal disease) on dialysis Status: Acute (20) Epistaxis Status: Acute (21) Esophagitis Status: Acute (22) Fever Status: Acute (23) Fluid overload Status: Acute (24) Foot ulcer Status: Acute (25) Gastric pain Status: Acute (26) 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 Status: Acute (27) Herpes Status: Acute (28) History of diabetic gastroparesis Status: Acute (29) Hyperglycemia Status: Acute (30) Hyperglycemia without ketosis Status: Acute (31) Hyperkalemia Status: Acute (32) Hypertension, malignant Status: Acute (33) Hypertensive urgency Status: Acute (34) Hypoglycemia Status: Acute (35) Infection due to central venous catheter exit site Status: Acute (36) Infection, dialysis vascular access Status: Acute (37) Intractable vomiting Status: Acute (38) Intractable vomiting Status: Acute (39) Leg swelling Status: Acute (40) Leukocytosis Status: Acute (41) Leukocytosis Status: Acute (42) Medical assessment Status: Acute (43) Narcotic addiction Status: Acute (44) Nausea Status: Acute (45) Opioid dependence Status: Acute (46) Other complication of arteriovenous dialysis fistula Status: Acute (47) Positive blood culture Status: Acute (48) Prophylactic measure Status: Acute (49) Pulmonary edema Status: Acute (50) Pulmonary edema Status: Acute (51) Renal azotemia Status: Acute (52) Renal failure Status: Acute (53) Renal function tests abnormal Status: Acute (54) Respiratory distress Status: Acute (55) Sensorineural deafness, unilateral Status: Acute (56) Sepsis Status: Acute (57) Shortness of breath Status: Acute (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 Status: Acute (59) Tearfulness Status: Acute (60) Threatening to others Status: Acute (61) UTI (lower urinary tract infection) Status: Acute (62) UTI (urinary tract infection) Status: Acute (63) Uncontrolled diabetes mellitus Status: Acute (64) Urinary tract infection symptoms Status: Acute (65) Vaginal discharge Status: Acute (66) Viral bronchitis Status: Acute (67) Vomiting Status: Acute (68) Vomiting bile Status: Acute (69) Abdominal discomfort, generalized Status: Chronic (70) Abdominal pain Status: Chronic (71) Abdominal pain Status: Chronic (72) Abdominal pain in female Status: Chronic (73) Anemia Status: Chronic (74) Anxiety Status: Chronic (75) CHF (congestive heart failure) Status: Chronic (76) Chronic abdominal pain Status: Chronic (77) Chronic pruritus Status: Chronic (78) Chronic, continuous use of opioids Status: Chronic (79) Constipation Status: Chronic (80) Dependence on renal dialysis Status: Chronic (81) Dependency on pain medication Status: Chronic (82) Diabetes Status: Chronic (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, managed as type 2 Status: Chronic (84) Drug-seeking behavior Status: Chronic (85) End stage renal disease Status: Chronic (86) End stage renal disease on dialysis Status: Chronic (87) Gastroparesis Status: Chronic (88) Hemodialysis patient Status: Chronic (89) History of osteomyelitis Status: Chronic (90) Hypertension Status: Chronic (91) Hypertension associated with diabetes Status: Chronic (92) Intractable abdominal pain Status: Chronic (93) Intractable nausea and vomiting Status: Chronic (94) Pain Status: Chronic (95) Skin lesions, generalized Status: Chronic (96) Type 1 diabetes Status: Chronic - Assessment and Plan (Free Text) Plan: Patient examined. Patient clinically the same. Continue anti-diabetic medications insulin. Continue supportive care.
[2017-06-20] MEDS: HYDROmorphone 1 mg/ml ISec IVP PRN ×5 (06:50→23:39)
[2017-06-20] MEDS: DiphenhydrAMINE 50 mg/ml Inj IVP PRN ×3 (06:51→23:40)
[2017-06-20] MEDS: (Novolog) Insulin Aspart, Recombinant 100 u/ml 10 ml vial SC SCH ×4 (07:30→21:23)
[2017-06-20] MEDS: Insulin Detemir 100 units/ml Vial (Levemir) SC SCH ×2 (11:12→21:19)
[2017-06-20] MEDS: Pantoprazole 40 mg EC Tab PO SCH (11:13)
[2017-06-20] MEDS: NIFEdipine 60 mg ER Tab PO SCH ×2 (11:14→18:50)
[2017-06-20] MEDS ORDERED: DiphenhydrAMINE 50 mg/ml Inj IVP ONE (14:30)
[2017-06-20] MEDS ORDERED: DiphenhydrAMINE 50 mg/ml Inj IVP STA (16:15)
[2017-06-20] MEDS ORDERED: Dextrose 50% SYRINGE Inj (50 ml) IV STA (16:29)
--- NOTE | 2017-06-20 20:07 | CP.PCM.PN ---
Subjective - Date & Time of Evaluation Date of Evaluation: 06/20/17 Time of Evaluation: 08:40 - Subjective Subjective: clinically same Objective - Vital Signs/Intake and Output Vital Signs (last 24 hours): Temp Pulse Resp BP Pulse Ox 97.6 F 61 20 114/79 97 06/20/17 16:45 06/20/17 18:50 06/20/17 16:45 06/20/17 18:50 06/20/17 16:45 - Medications Medications: Current Medications Calcium Acetate (Phoslo) 667 mg PO TIDCC [facility] Last Admin: 06/20/17 18:00 Dose: Not Given Clonidine HCl (Catapres) 0.3 mg PO BID [facility] Last Admin: 06/20/17 18:50 Dose: 0.3 mg Diphenhydramine HCl (Benadryl) 25 mg IVP Q4 PRN PRN Reason: Itching / Pruritus Last Admin: 06/20/17 11:17 Dose: 25 mg Ergocalciferol (Drisdol 50,000 Intl Units Cap) 50,000 cap PO QWK [facility] Last Admin: 06/18/17 10:00 Dose: Not Given Gabapentin (Neurontin) 300 mg PO DAILY [facility] Last Admin: 06/20/17 18:50 Dose: 300 mg Heparin Sodium (Porcine) (Heparin) 5,000 units SC Q12 [facility] Last Admin: 06/20/17 11:13 Dose: Not Given Hydralazine HCl (Apresoline) 10 mg IVP Q8H [facility] Last Admin: 06/20/17 16:02 Dose: 10 mg Hydromorphone HCl (Dilaudid) 2 mg IVP Q4H PRN PRN Reason: Pain, severe (8-10) Last Admin: 06/20/17 19:34 Dose: 2 mg Insulin Aspart (Novolog) 0 unit SC ACHS [facility] PRN Reason: Protocol Last Admin: 06/20/17 18:01 Dose: Not Given Insulin Detemir (Levemir) 12 unit SC Q12 [facility] Last Admin: 06/20/17 11:12 Dose: 12 unit Metoclopramide HCl (Reglan) 10 mg PO DAILY [facility] Last Admin: 06/20/17 11:14 Dose: Not Given Nifedipine (Procardia Xl) 60 mg PO BID [facility] Last Admin: 06/20/17 18:50 Dose: Not Given Ondansetron HCl (Zofran Odt) 4 mg PO Q8 PRN PRN Reason: Nausea/Vomiting Last Admin: 06/18/17 13:38 Dose: 4 mg Pantoprazole Sodium (Protonix Ec Tab) 40 mg PO DAILY [facility] Last Admin: 06/20/17 11:13 Dose: 40 mg - Labs Labs: 06/17/17 18:33 06/17/17 18:33 PT 11.8 SECONDS (9.7-12.2) 06/18/17 16:00 INR 1.1 06/18/17 16:00 APTT 34 SECONDS (21-34) 06/18/17 16:00 - Constitutional Appears: Well - Head Exam Head Exam: ATRAUMATIC, NORMAL INSPECTION, NORMOCEPHALIC - Eye Exam Eye Exam: EOMI, Normal appearance, PERRL Pupil Exam: NORMAL ACCOMODATION, PERRL - ENT Exam ENT Exam: Mucous Membranes Moist, Normal Exam - Neck Exam Neck Exam: Full ROM, Normal Inspection. absent: Lymphadenopathy - Respiratory Exam Respiratory Exam: Decreased Breath Sounds - Cardiovascular Exam Cardiovascular Exam: REGULAR RHYTHM, +S1, +S2 - GI/Abdominal Exam GI & Abdominal Exam: Soft, Diminished Bowel Sounds - Rectal Exam Rectal Exam: Deferred Assessment and Plan (1) Hypertensive crisis without congestive heart failure Status: Acute (2) Accelerated essential hypertension Status: Acute (3) Acute hyperkalemia Status: Acute (4) Acute renal failure Status: Acute (5) Adjustment disorder with anxiety Status: Acute (6) Bacteremia Status: Acute (7) Catheter-related bloodstream infection (CRBSI) Status: Acute (8) Cellulitis Status: Acute (9) Chest pain Status: Acute (10) Chronic congestive heart failure Status: Acute (11) Chronic intractable pain Status: Acute (12) Chronic pain Status: Acute (13) Congestive heart failure Status: Acute (14) Constipation Status: Acute (15) DM w/o complication type I Status: Acute (16) DVT (deep venous thrombosis) Status: Acute (17) Dehydration fever Status: Acute (18) Dyspnea Status: Acute (19) ESRD (end stage renal disease) on dialysis Status: Acute (20) Epistaxis Status: Acute (21) Esophagitis Status: Acute (22) Fever Status: Acute (23) Fluid overload Status: Acute (24) Foot ulcer Status: Acute (25) Gastric pain Status: Acute (26) 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 Status: Acute (27) Herpes Status: Acute (28) History of diabetic gastroparesis Status: Acute (29) Hyperglycemia Status: Acute (30) Hyperglycemia without ketosis Status: Acute (31) Hyperkalemia Status: Acute (32) Hypertension, malignant Status: Acute (33) Hypertensive urgency Status: Acute (34) Hypoglycemia Status: Acute (35) Infection due to central venous catheter exit site Status: Acute (36) Infection, dialysis vascular access Status: Acute (37) Intractable vomiting Status: Acute (38) Intractable vomiting Status: Acute (39) Leg swelling Status: Acute (40) Leukocytosis Status: Acute (41) Leukocytosis Status: Acute (42) Medical assessment Status: Acute (43) Narcotic addiction Status: Acute (44) Nausea Status: Acute (45) Opioid dependence Status: Acute (46) Other complication of arteriovenous dialysis fistula Status: Acute (47) Positive blood culture Status: Acute (48) Prophylactic measure Status: Acute (49) Pulmonary edema Status: Acute (50) Pulmonary edema Status: Acute (51) Renal azotemia Status: Acute (52) Renal failure Status: Acute (53) Renal function tests abnormal Status: Acute (54) Respiratory distress Status: Acute (55) Sensorineural deafness, unilateral Status: Acute (56) Sepsis Status: Acute (57) Shortness of breath Status: Acute (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 Status: Acute (59) Tearfulness Status: Acute (60) Threatening to others Status: Acute (61) UTI (lower urinary tract infection) Status: Acute (62) UTI (urinary tract infection) Status: Acute (63) Uncontrolled diabetes mellitus Status: Acute (64) Urinary tract infection symptoms Status: Acute (65) Vaginal discharge Status: Acute (66) Viral bronchitis Status: Acute (67) Vomiting Status: Acute (68) Vomiting bile Status: Acute (69) Abdominal discomfort, generalized Status: Chronic (70) Abdominal pain Status: Chronic (71) Abdominal pain Status: Chronic (72) Abdominal pain in female Status: Chronic (73) Anemia Status: Chronic (74) Anxiety Status: Chronic (75) CHF (congestive heart failure) Status: Chronic (76) Chronic abdominal pain Status: Chronic (77) Chronic pruritus Status: Chronic (78) Chronic, continuous use of opioids Status: Chronic (79) Constipation Status: Chronic (80) Dependence on renal dialysis Status: Chronic (81) Dependency on pain medication Status: Chronic (82) Diabetes Status: Chronic (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, managed as type 2 Status: Chronic (84) Drug-seeking behavior Status: Chronic (85) End stage renal disease Status: Chronic (86) End stage renal disease on dialysis Status: Chronic (87) Gastroparesis Status: Chronic (88) Hemodialysis patient Status: Chronic (89) History of osteomyelitis Status: Chronic (90) Hypertension Status: Chronic (91) Hypertension associated with diabetes Status: Chronic (92) Intractable abdominal pain Status: Chronic (93) Intractable nausea and vomiting Status: Chronic (94) Pain Status: Chronic (95) Skin lesions, generalized Status: Chronic (96) Type 1 diabetes Status: Chronic - Assessment and Plan (Free Text) Plan: Patient examined. Patient better. Continue insulin detemir and aspart. Continue supportive medications.
--- NOTE | 2017-06-20 23:19 | CP.PCM.PN ---
Subjective - Date & Time of Evaluation Date of Evaluation: 06/20/17 Time of Evaluation: 12:00 - Subjective Subjective: SEEN ON RENAL F/U ON HD .. RECIEVED HD BACK TO BACK .. MON ,TEU AND TODAY WED BP FINALLY CAME DOWN .. WILL TEPER CLONIDINE DOWN Objective - Vital Signs/Intake and Output Vital Signs (last 24 hours): Temp Pulse Resp BP Pulse Ox 97.6 F 61 20 114/79 97 06/20/17 16:45 06/20/17 18:50 06/20/17 16:45 06/20/17 18:50 06/20/17 16:45 - Medications Medications: Current Medications Calcium Acetate (Phoslo) 667 mg PO TIDCC [facility] Last Admin: 06/20/17 18:00 Dose: Not Given Clonidine HCl (Catapres) 0.2 mg PO BID [facility] Diphenhydramine HCl (Benadryl) 25 mg IVP Q4 PRN PRN Reason: Itching / Pruritus Last Admin: 06/20/17 11:17 Dose: 25 mg Ergocalciferol (Drisdol 50,000 Intl Units Cap) 50,000 cap PO QWK [facility] Last Admin: 06/18/17 10:00 Dose: Not Given Gabapentin (Neurontin) 300 mg PO DAILY [facility] Last Admin: 06/20/17 18:50 Dose: 300 mg Heparin Sodium (Porcine) (Heparin) 5,000 units SC Q12 [facility] Last Admin: 06/20/17 21:22 Dose: Not Given Hydralazine HCl (Apresoline) 10 mg IVP Q8H [facility] Last Admin: 06/20/17 22:13 Dose: Not Given Hydromorphone HCl (Dilaudid) 2 mg IVP Q4H PRN PRN Reason: Pain, severe (8-10) Last Admin: 06/20/17 19:34 Dose: 2 mg Insulin Aspart (Novolog) 0 unit SC ACHS [facility] PRN Reason: Protocol Last Admin: 06/20/17 21:23 Dose: Not Given Insulin Detemir (Levemir) 12 unit SC Q12 [facility] Last Admin: 06/20/17 21:19 Dose: 12 unit Metoclopramide HCl (Reglan) 10 mg PO DAILY [facility] Last Admin: 06/20/17 11:14 Dose: Not Given Nifedipine (Procardia Xl) 60 mg PO BID [facility] Last Admin: 06/20/17 18:50 Dose: Not Given Ondansetron HCl (Zofran Odt) 4 mg PO Q8 PRN PRN Reason: Nausea/Vomiting Last Admin: 06/18/17 13:38 Dose: 4 mg Pantoprazole Sodium (Protonix Ec Tab) 40 mg PO DAILY [facility] Last Admin: 06/20/17 11:13 Dose: 40 mg Vitamin B Complex/Vit C/Folic Acid (Nephro-Vamshi) 1 tab PO 0800 [facility] - Labs Labs: 06/17/17 18:33 06/17/17 18:33 PT 11.8 SECONDS (9.7-12.2) 06/18/17 16:00 INR 1.1 06/18/17 16:00 APTT 34 SECONDS (21-34) 06/18/17 16:00 Assessment and Plan - Assessment and Plan (Free Text) Assessment: ESRD ON HD M W F ANEMIA OF CKD .. H/H STABLE MULTIPLE CO MORBIDITIES P : C/O CURRENT CARE C/O PRESENT MANAGEMENT
[2017-06-21] MEDS: HYDROmorphone 1 mg/ml ISec IVP PRN ×5 (03:42→20:30)
[2017-06-21] MEDS: DiphenhydrAMINE 50 mg/ml Inj IVP PRN ×5 (03:43→20:30)
[2017-06-21 08:34] LABS: BASO # 0.1 K/uL (0.0-0.2); BASO % 1.3 % (0.0-2.0); EOS # 0.8 K/uL (0.0-0.7); EOS % 14.6 % (0.0-4.0); HEMATOCRIT 33.1 % (34.0-47.0); LYMPH # 1.2 K/uL (1.0-4.3); LYMPH % 22.8 % (20.0-40.0); MEAN CELL VOLUME 96.8 fL (81.0-99.0); MEAN CORPUSCULAR HEMOGLOBIN 31.5 pg (27.0-31.0); MEAN CORPUSCULAR HGB CONC 32.6 g/dL (33.0-37.0); MEAN PLATELET VOLUME 8.8 fL (7.2-11.7); MONO # 0.6 K/uL (0.0-0.8); MONO % 11.4 % (0.0-10.0); NRBC % 0.1 % (0.0-2.0); RED CELL DISTRIBUTION WIDTH 15.6 % (11.5-14.5); WHITE BLOOD COUNT 5.3 K/uL (4.8-10.8)
[2017-06-21 08:50] LABS: POTASSIUM 4.7 mmol/L (3.6-5.2)
[2017-06-21 08:52] LABS: ALB/GLOB RATIO 1.3 (1.0-2.1); BILIRUBIN,TOTAL 0.8 mg/dL (0.2-1.3); TOTAL PROTEIN 7.2 g/dL (6.3-8.3)
[2017-06-21 08:53] LABS: CALCIUM 7.3 mg/dl (8.6-10.4)
[2017-06-21] MEDS: NIFEdipine 60 mg ER Tab PO SCH ×2 (11:31→17:11)
[2017-06-21] MEDS: Pantoprazole 40 mg EC Tab PO SCH (11:32)
[2017-06-21] MEDS: Multivitamin Vitamin B Complex (Nephro-Vite) Tab PO SCH (11:33)
[2017-06-21] MEDS: Insulin Detemir 100 units/ml Vial (Levemir) SC SCH ×2 (11:33→22:17)
[2017-06-21] MEDS: (Novolog) Insulin Aspart, Recombinant 100 u/ml 10 ml vial SC SCH ×4 (11:34→21:57)
--- NOTE | 2017-06-21 15:02 | CP.PCM.PN ---
Subjective - Date & Time of Evaluation Date of Evaluation: 06/21/17 Time of Evaluation: 08:20 - Subjective Subjective: clinically same Objective - Vital Signs/Intake and Output Vital Signs (last 24 hours): Temp Pulse Resp BP Pulse Ox 98 F 87 20 175/104 H 98 06/21/17 07:41 06/21/17 07:41 06/21/17 07:41 06/21/17 07:41 06/21/17 07:41 Intake and Output: 06/21/17 06/21/17 06:59 18:59 Intake Total 100 Balance 100 - Medications Medications: Current Medications Calcium Acetate (Phoslo) 667 mg PO TIDCC [facility] Last Admin: 06/21/17 11:31 Dose: 667 mg Clonidine HCl (Catapres) 0.2 mg PO BID [facility] Last Admin: 06/21/17 11:33 Dose: 0.2 mg Diphenhydramine HCl (Benadryl) 25 mg IVP Q4 PRN PRN Reason: Itching / Pruritus Last Admin: 06/21/17 12:30 Dose: 25 mg Ergocalciferol (Drisdol 50,000 Intl Units Cap) 50,000 cap PO QWK [facility] Last Admin: 06/18/17 10:00 Dose: Not Given Gabapentin (Neurontin) 300 mg PO DAILY [facility] Last Admin: 06/21/17 11:33 Dose: 300 mg Heparin Sodium (Porcine) (Heparin) 5,000 units SC Q12 [facility] Last Admin: 06/21/17 10:00 Dose: Not Given Hydralazine HCl (Apresoline) 10 mg IVP Q8H [facility] Last Admin: 06/21/17 05:46 Dose: 10 mg Hydromorphone HCl (Dilaudid) 2 mg IVP Q4H PRN PRN Reason: Pain, severe (8-10) Last Admin: 06/21/17 12:30 Dose: 2 mg Insulin Aspart (Novolog) 0 unit SC ACHS [facility] PRN Reason: Protocol Last Admin: 06/21/17 14:19 Dose: Not Given Insulin Detemir (Levemir) 12 unit SC Q12 [facility] Last Admin: 06/21/17 11:33 Dose: 12 unit Metoclopramide HCl (Reglan) 10 mg PO DAILY [facility] Last Admin: 06/21/17 11:32 Dose: 10 mg Nifedipine (Procardia Xl) 60 mg PO BID [facility] Last Admin: 06/21/17 11:31 Dose: 60 mg Ondansetron HCl (Zofran Odt) 4 mg PO Q8 PRN PRN Reason: Nausea/Vomiting Last Admin: 06/18/17 13:38 Dose: 4 mg Pantoprazole Sodium (Protonix Ec Tab) 40 mg PO DAILY [facility] Last Admin: 06/21/17 11:32 Dose: 40 mg Vitamin B Complex/Vit C/Folic Acid (Nephro-Vamshi) 1 tab PO 0800 [facility] Last Admin: 06/21/17 11:33 Dose: 1 tab - Labs Labs: 06/21/17 08:20 06/21/17 08:20 PT 11.8 SECONDS (9.7-12.2) 06/18/17 16:00 INR 1.1 06/18/17 16:00 APTT 34 SECONDS (21-34) 06/18/17 16:00 - Constitutional Appears: Well - Head Exam Head Exam: ATRAUMATIC, NORMAL INSPECTION, NORMOCEPHALIC - Eye Exam Eye Exam: EOMI, Normal appearance, PERRL Pupil Exam: NORMAL ACCOMODATION, PERRL - ENT Exam ENT Exam: Mucous Membranes Moist, Normal Exam - Neck Exam Neck Exam: Full ROM, Normal Inspection. absent: Lymphadenopathy - Respiratory Exam Respiratory Exam: Decreased Breath Sounds - Cardiovascular Exam Cardiovascular Exam: REGULAR RHYTHM, +S1, +S2 - GI/Abdominal Exam GI & Abdominal Exam: Soft, Diminished Bowel Sounds - Rectal Exam Rectal Exam: Deferred Assessment and Plan (1) Hypertensive crisis without congestive heart failure Status: Acute (2) Accelerated essential hypertension Status: Acute (3) Acute hyperkalemia Status: Acute (4) Acute renal failure Status: Acute (5) Adjustment disorder with anxiety Status: Acute (6) Bacteremia Status: Acute (7) Catheter-related bloodstream infection (CRBSI) Status: Acute (8) Cellulitis Status: Acute (9) Chest pain Status: Acute (10) Chronic congestive heart failure Status: Acute (11) Chronic intractable pain Status: Acute (12) Chronic pain Status: Acute (13) Congestive heart failure Status: Acute (14) Constipation Status: Acute (15) DM w/o complication type I Status: Acute (16) DVT (deep venous thrombosis) Status: Acute (17) Dehydration fever Status: Acute (18) Dyspnea Status: Acute (19) ESRD (end stage renal disease) on dialysis Status: Acute (20) Epistaxis Status: Acute (21) Esophagitis Status: Acute (22) Fever Status: Acute (23) Fluid overload Status: Acute (24) Foot ulcer Status: Acute (25) Gastric pain Status: Acute (26) 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 Status: Acute (27) Herpes Status: Acute (28) History of diabetic gastroparesis Status: Acute (29) Hyperglycemia Status: Acute (30) Hyperglycemia without ketosis Status: Acute (31) Hyperkalemia Status: Acute (32) Hypertension, malignant Status: Acute (33) Hypertensive urgency Status: Acute (34) Hypoglycemia Status: Acute (35) Infection due to central venous catheter exit site Status: Acute (36) Infection, dialysis vascular access Status: Acute (37) Intractable vomiting Status: Acute (38) Intractable vomiting Status: Acute (39) Leg swelling Status: Acute (40) Leukocytosis Status: Acute (41) Leukocytosis Status: Acute (42) Medical assessment Status: Acute (43) Narcotic addiction Status: Acute (44) Nausea Status: Acute (45) Opioid dependence Status: Acute (46) Other complication of arteriovenous dialysis fistula Status: Acute (47) Positive blood culture Status: Acute (48) Prophylactic measure Status: Acute (49) Pulmonary edema Status: Acute (50) Pulmonary edema Status: Acute (51) Renal azotemia Status: Acute (52) Renal failure Status: Acute (53) Renal function tests abnormal Status: Acute (54) Respiratory distress Status: Acute (55) Sensorineural deafness, unilateral Status: Acute (56) Sepsis Status: Acute (57) Shortness of breath Status: Acute (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 Status: Acute (59) Tearfulness Status: Acute (60) Threatening to others Status: Acute (61) UTI (lower urinary tract infection) Status: Acute (62) UTI (urinary tract infection) Status: Acute (63) Uncontrolled diabetes mellitus Status: Acute (64) Urinary tract infection symptoms Status: Acute (65) Vaginal discharge Status: Acute (66) Viral bronchitis Status: Acute (67) Vomiting Status: Acute (68) Vomiting bile Status: Acute (69) Abdominal discomfort, generalized Status: Chronic (70) Abdominal pain Status: Chronic (71) Abdominal pain Status: Chronic (72) Abdominal pain in female Status: Chronic (73) Anemia Status: Chronic (74) Anxiety Status: Chronic (75) CHF (congestive heart failure) Status: Chronic (76) Chronic abdominal pain Status: Chronic (77) Chronic pruritus Status: Chronic (78) Chronic, continuous use of opioids Status: Chronic (79) Constipation Status: Chronic (80) Dependence on renal dialysis Status: Chronic (81) Dependency on pain medication Status: Chronic (82) Diabetes Status: Chronic (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, managed as type 2 Status: Chronic (84) Drug-seeking behavior Status: Chronic (85) End stage renal disease Status: Chronic (86) End stage renal disease on dialysis Status: Chronic (87) Gastroparesis Status: Chronic (88) Hemodialysis patient Status: Chronic (89) History of osteomyelitis Status: Chronic (90) Hypertension Status: Chronic (91) Hypertension associated with diabetes Status: Chronic (92) Intractable abdominal pain Status: Chronic (93) Intractable nausea and vomiting Status: Chronic (94) Pain Status: Chronic (95) Skin lesions, generalized Status: Chronic (96) Type 1 diabetes Status: Chronic - Assessment and Plan (Free Text) Plan: Patient examined. Blood pressure now under control. Plan to taper clonidine. Continue insulin. Continue supportive care.
[2017-06-21] MEDS ORDERED: DiphenhydrAMINE 50 mg/ml Inj IVP ONE (18:16)
--- NOTE | 2017-06-21 21:32 | CP.PCM.PN ---
Subjective - Date & Time of Evaluation Date of Evaluation: 06/21/17 Time of Evaluation: 14:00 - Subjective Subjective: SEEN ON RENAL F/U AMBULATORY .. FEELS BETTER ON HD M W F AND SAT Objective - Vital Signs/Intake and Output Vital Signs (last 24 hours): Temp Pulse Resp BP Pulse Ox 97.2 F L 88 20 198/108 H 95 06/21/17 15:00 06/21/17 15:00 06/21/17 15:00 06/21/17 17:10 06/21/17 15:00 Intake and Output: 06/21/17 06/22/17 18:59 06:59 Intake Total 200 Balance 200 - Medications Medications: Current Medications Calcium Acetate (Phoslo) 667 mg PO TIDCC [facility] Last Admin: 06/21/17 17:08 Dose: 667 mg Clonidine HCl (Catapres) 0.2 mg PO BID [facility] Last Admin: 06/21/17 17:11 Dose: 0.2 mg Diphenhydramine HCl (Benadryl) 25 mg IVP Q4 PRN PRN Reason: Itching / Pruritus Last Admin: 06/21/17 20:30 Dose: 25 mg Ergocalciferol (Drisdol 50,000 Intl Units Cap) 50,000 cap PO QWK [facility] Last Admin: 06/18/17 10:00 Dose: Not Given Gabapentin (Neurontin) 300 mg PO DAILY [facility] Last Admin: 06/21/17 11:33 Dose: 300 mg Hydralazine HCl (Apresoline) 10 mg IVP Q8H [facility] Last Admin: 06/21/17 16:14 Dose: 10 mg Hydromorphone HCl (Dilaudid) 2 mg IVP Q4H PRN PRN Reason: Pain, severe (8-10) Last Admin: 06/21/17 20:30 Dose: 2 mg Insulin Aspart (Novolog) 0 unit SC ACHS [facility] PRN Reason: Protocol Last Admin: 06/21/17 17:09 Dose: 4 unit Insulin Detemir (Levemir) 12 unit SC Q12 [facility] Last Admin: 06/21/17 11:33 Dose: 12 unit Metoclopramide HCl (Reglan) 10 mg PO DAILY [facility] Last Admin: 06/21/17 11:32 Dose: 10 mg Nifedipine (Procardia Xl) 60 mg PO BID [facility] Last Admin: 06/21/17 17:11 Dose: 60 mg Ondansetron HCl (Zofran Odt) 4 mg PO Q8 PRN PRN Reason: Nausea/Vomiting Last Admin: 06/18/17 13:38 Dose: 4 mg Pantoprazole Sodium (Protonix Ec Tab) 40 mg PO DAILY [facility] Last Admin: 06/21/17 11:32 Dose: 40 mg Vitamin B Complex/Vit C/Folic Acid (Nephro-Vamshi) 1 tab PO 0800 [facility] Last Admin: 06/21/17 11:33 Dose: 1 tab - Labs Labs: 06/21/17 08:20 06/21/17 08:20 PT 11.8 SECONDS (9.7-12.2) 06/18/17 16:00 INR 1.1 06/18/17 16:00 APTT 34 SECONDS (21-34) 06/18/17 16:00 Assessment and Plan - Assessment and Plan (Free Text) Assessment: ESRD ON HD M W F AND SAT .. TO BE C/O ANEMIA OF CKD .. H/H STABLE MULTIPLE CO MORBIDITIES .. P C/O CURRENT CARE C/O PRESENT MEDS
[2017-06-22] MEDS: DiphenhydrAMINE 50 mg/ml Inj IVP PRN ×6 (00:21→20:55)
[2017-06-22] MEDS: HYDROmorphone 1 mg/ml ISec IVP PRN ×6 (00:21→20:55)
[2017-06-22] MEDS: (Novolog) Insulin Aspart, Recombinant 100 u/ml 10 ml vial SC SCH ×4 (09:49→21:26)
[2017-06-22] MEDS: Insulin Detemir 100 units/ml Vial (Levemir) SC SCH ×2 (09:49→22:00)
[2017-06-22] MEDS: NIFEdipine 60 mg ER Tab PO SCH ×2 (09:50→17:00)
[2017-06-22] MEDS: Multivitamin Vitamin B Complex (Nephro-Vite) Tab PO SCH (09:50)
[2017-06-22] MEDS: Pantoprazole 40 mg EC Tab PO SCH (09:51)
[2017-06-22] MEDS ORDERED: DiphenhydrAMINE 50 mg/ml Inj IVP ONE ×3 (11:45→22:56)
--- NOTE | 2017-06-22 15:08 | CP.PCM.CON ---
History of Present Illness - History of Present Illness History of Present Illness: 31 year old female with a past medical history of IDDM (diagnosed at age 11 ), numerous bouts of osteomyelitis, anemia of chronic disease, chronic kidney disease on HD, ammernorhea (secondary to anemia since 2008) who complains of worsening vaginal discharge. For the past three years, she has been on dialysis , and since that time her discharge has been yellow and foul-smelling. She has tried using Monistat cream, douche-ing, and washing her vagina with unscented soap-all of which have not relieved her symptoms/discharge. She denies any associated burning or itching. She denies having any (since 2008) sexual intercourse vaginal bleeding, or having any external lesions to vagina/ perineum. She denies any dysuria, diarrhea, or suprapubic fullness/discomfort. Past Medical History: Type I DM with complications, including, but not limited to, renal failure, gastroparesis, osteomyelitis; hypertension, and CKD. Surgical history: 2 exploratory abdominal surgeries, cholecystectomy, surgeries related to osteomyelitis affecting the left collar bone and sternum Allergies: ketorolac, tromethamine, latex, morphine, and tramadol Medications: Reviewed Hospitalizations: Most recent hospitalization was for osteomyelitis requiring surgical intervention and IV antibiotics for greater than a month. Obstetric: 1 miscarriage in 2007 at an estimated 8 weeks of gestation-treated by Dilatation and Curretage. [employer]: menarche age 11, periods stopped in 2008 following the onset of acute renal failure and subsequent anemia of chronic disease, her pap smears are reportedly normal, denies any history of any STI. Review of Systems - Constitutional Constitutional: Anorexia, Malaise - Breasts Breasts: As Per HPI - Cardiovascular Cardiovascular: absent: Chest Pain, Chest Pain with Activity, Edema, Paroxysmal Nocturnal Dyspnea, Rapid Heart Rate - Reproductive: Female Reproductive:Female: Amenorrhea, Vaginal Discharge, Vaginal Odor. absent: Vaginal Pruritis - Musculoskeletal Musculoskeletal: As Per HPI Past Patient History - Infectious Disease Hx of Infectious Diseases: None - Tetanus Immunizations Tetanus Immunization: Unknown - Past Medical History & Family History Past Medical History?: Yes - Past Social History Smoking Status: Never Smoked - CARDIAC Hx Congestive Heart Failure: Yes Hx Hypercholesterolemia: Yes Hx Hypertension: Yes Hx Peripheral Edema: Yes - PULMONARY Hx Asthma: Yes Hx Bronchitis: Yes Hx Pneumonia: Yes Hx Sleep Apnea: Yes - NEUROLOGICAL Hx Seizures: Yes - HEENT Hx HEENT Problems: Yes Hx Cataracts: Yes Hx Glaucoma: Yes - RENAL Hx Chronic Kidney Disease: Yes Hx Kidney Stones: Yes - ENDOCRINE/METABOLIC Hx Hyperthyroidism: Yes Hx Hypothyroidism: Yes - HEMATOLOGICAL/ONCOLOGICAL Hx Anemia: Yes - INTEGUMENTARY Hx Dermatological Problems: Yes Other/Comment: DRY ITCHY SKIN ;multiple/generalized dark spots on skin. left toe blister - MUSCULOSKELETAL/RHEUMATOLOGICAL Hx Fractures: Yes (Sep 2012 L foot) - GASTROINTESTINAL Hx Gall Bladder Disease: Yes (gallbladder removed) Hx Gastritis: Yes Hx Pancreatitis: Yes (chronic) - PSYCHIATRIC Hx Anxiety: Yes Hx Substance Use: Yes - SURGICAL HISTORY Hx Cholecystectomy: Yes Hx Coronary Stent: Yes - ANESTHESIA Hx Anesthesia: Yes Hx Anesthesia Reactions: No Hx Malignant Hyperthermia: No Meds Allergies/Adverse Reactions: Allergies Allergy/AdvReac Type Severity Reaction Status Date / Time ketorolac tromethamine Allergy RASH Verified 05/28/17 12:25 [From Toradol] latex Allergy RASH Verified 05/28/17 12:25 morphine Allergy RASH Verified 05/28/17 12:25 tramadol Allergy RASH Verified 05/28/17 12:25 - Medications Medications: Current Medications Calcium Acetate (Phoslo) 667 mg PO TIDCC [facility] Last Admin: 06/22/17 12:29 Dose: 667 mg Clonidine HCl (Catapres) 0.2 mg PO BID [facility] Last Admin: 06/22/17 09:51 Dose: 0.2 mg Diphenhydramine HCl (Benadryl) 25 mg IVP Q4 PRN PRN Reason: Itching / Pruritus Last Admin: 06/22/17 12:50 Dose: 25 mg Ergocalciferol (Drisdol 50,000 Intl Units Cap) 50,000 cap PO QWK [facility] Last Admin: 06/18/17 10:00 Dose: Not Given Gabapentin (Neurontin) 300 mg PO DAILY [facility] Last Admin: 06/22/17 09:51 Dose: 300 mg Hydralazine HCl (Apresoline) 10 mg IVP Q8H [facility] Last Admin: 06/22/17 14:25 Dose: Not Given Hydromorphone HCl (Dilaudid) 2 mg IVP Q4H PRN PRN Reason: Pain, severe (8-10) Last Admin: 06/22/17 12:50 Dose: 2 mg Insulin Aspart (Novolog) 0 unit SC ACHS [facility] PRN Reason: Protocol Last Admin: 06/22/17 12:29 Dose: 1 unit Insulin Detemir (Levemir) 12 unit SC Q12 [facility] Last Admin: 06/22/17 09:49 Dose: 12 unit Metoclopramide HCl (Reglan) 10 mg PO DAILY [facility] Last Admin: 06/22/17 09:51 Dose: 10 mg Nifedipine (Procardia Xl) 60 mg PO BID [facility] Last Admin: 06/22/17 09:50 Dose: 60 mg Ondansetron HCl (Zofran Odt) 4 mg PO Q8 PRN PRN Reason: Nausea/Vomiting Last Admin: 06/18/17 13:38 Dose: 4 mg Pantoprazole Sodium (Protonix Ec Tab) 40 mg PO DAILY [facility] Last Admin: 06/22/17 09:51 Dose: 40 mg Vitamin B Complex/Vit C/Folic Acid (Nephro-Vamshi) 1 tab PO 0800 [facility] Last Admin: 06/22/17 09:50 Dose: 1 tab Physical Exam - Constitutional Appears: Well, Non-toxic - Head Exam Head Exam: ATRAUMATIC, NORMOCEPHALIC - Eye Exam Eye Exam: EOMI, Normal appearance - ENT Exam ENT Exam: Mucous Membranes Moist, Normal Oropharynx - Neck Exam Neck exam: Positive for: Normal Inspection. Negative for: Lymphadenopathy - Respiratory Exam Respiratory Exam: Clear to Auscultation Bilateral, NORMAL BREATHING PATTERN - Cardiovascular Exam Cardiovascular Exam: RRR, +S1, +S2 - GI/Abdominal Exam GI & Abdominal Exam: Normal Bowel Sounds. absent: Guarding, Rebound - Exam Speculum exam: Vaginal Discharge (brownish color). absent: Vaginal Bleeding ( brownish vaginal discharge) Bimanual exam: absent: Cervical Motion Tendernes - Extremities Exam Extremities exam: Positive for: pedal pulses present. Negative for: pedal edema - Back Exam Back exam: absent: CVA tenderness (L) - Neurological Exam Neurological exam: Alert, CN II-XII Intact - Psychiatric Exam Psychiatric exam: Normal Affect, Normal Mood - Skin Skin Exam: Rash (diffuse, ), Warm Results - Vital Signs Recent Vital Signs: Last Vital Signs Temp 97.6 F 06/22/17 08:33 Pulse 93 H 06/22/17 08:33 Resp 20 06/22/17 08:33 BP 156/91 H 06/22/17 08:33 Pulse Ox 96 06/22/17 08:33 - Labs Result Diagrams: 06/21/17 08:20 06/21/17 08:20 Labs: Laboratory Results - last 24 hr 06/21/17 06/21/17 06/22/17 16:20 21:39 06:27 POC Glucose (mg/dL) 342 H 214 H 151 H 06/22/17 11:48 POC Glucose (mg/dL) 186 H Assessment & Plan - Assessment and Plan (Free Text) Assessment: 31 year old female with a past medical history of IDDM, anemia of chronic disease, ammenorhea (secondary to anemia), CKD on hemodialysis MWF who complains of yellow, malodorous vaginal discharge. Plan: 1) Bacterial Vaginosis - 500 mg of Metronidazole BID - Date & Time Date: 06/22/17 Time: 16:15
--- NOTE | 2017-06-22 18:52 | CP.PCM.PN ---
Subjective - Date & Time of Evaluation Date of Evaluation: 06/22/17 Time of Evaluation: 14:00 - Subjective Subjective: SEEN ON RENAL F/U FEELS IMPROVED OBGYN CONSULT NOTED ON HD M W F AND SAT Objective - Vital Signs/Intake and Output Vital Signs (last 24 hours): Temp Pulse Resp BP Pulse Ox 98.1 F 106 H 18 181/98 H 10 L 06/22/17 14:40 06/22/17 18:00 06/22/17 18:00 06/22/17 18:00 06/22/17 18:00 Intake and Output: 06/22/17 06/22/17 06:59 18:59 Intake Total 720 Balance 720 - Medications Medications: Current Medications Calcium Acetate (Phoslo) 667 mg PO TIDCC [facility] Last Admin: 06/22/17 12:29 Dose: 667 mg Clonidine HCl (Catapres) 0.2 mg PO BID [facility] Last Admin: 06/22/17 09:51 Dose: 0.2 mg Diphenhydramine HCl (Benadryl) 25 mg IVP Q4 PRN PRN Reason: Itching / Pruritus Last Admin: 06/22/17 16:52 Dose: 25 mg Ergocalciferol (Drisdol 50,000 Intl Units Cap) 50,000 cap PO QWK [facility] Last Admin: 06/18/17 10:00 Dose: Not Given Gabapentin (Neurontin) 300 mg PO DAILY [facility] Last Admin: 06/22/17 09:51 Dose: 300 mg Hydralazine HCl (Apresoline) 10 mg IVP Q8H [facility] Last Admin: 06/22/17 14:25 Dose: Not Given Hydromorphone HCl (Dilaudid) 2 mg IVP Q4H PRN PRN Reason: Pain, severe (8-10) Last Admin: 06/22/17 16:52 Dose: 2 mg Insulin Aspart (Novolog) 0 unit SC ACHS [facility] PRN Reason: Protocol Last Admin: 06/22/17 12:29 Dose: 1 unit Insulin Detemir (Levemir) 12 unit SC Q12 [facility] Last Admin: 06/22/17 09:49 Dose: 12 unit Metoclopramide HCl (Reglan) 10 mg PO DAILY [facility] Last Admin: 06/22/17 09:51 Dose: 10 mg Metronidazole (Flagyl) 500 mg PO BID [facility] Stop: 06/29/17 10:01 Nifedipine (Procardia Xl) 60 mg PO BID [facility] Last Admin: 06/22/17 09:50 Dose: 60 mg Ondansetron HCl (Zofran Odt) 4 mg PO Q8 PRN PRN Reason: Nausea/Vomiting Last Admin: 06/18/17 13:38 Dose: 4 mg Pantoprazole Sodium (Protonix Ec Tab) 40 mg PO DAILY [facility] Last Admin: 06/22/17 09:51 Dose: 40 mg Vitamin B Complex/Vit C/Folic Acid (Nephro-Vamshi) 1 tab PO 0800 [facility] Last Admin: 06/22/17 09:50 Dose: 1 tab - Labs Labs: 06/21/17 08:20 06/21/17 08:20 PT 11.8 SECONDS (9.7-12.2) 06/18/17 16:00 INR 1.1 06/18/17 16:00 APTT 34 SECONDS (21-34) 06/18/17 16:00 Assessment and Plan - Assessment and Plan (Free Text) Assessment: C/O CURRENT CARE
[2017-06-23] MEDS: DiphenhydrAMINE 50 mg/ml Inj IVP PRN ×6 (00:54→21:19)
[2017-06-23] MEDS: HYDROmorphone 1 mg/ml ISec IVP PRN ×6 (00:54→21:19)
[2017-06-23] MEDS: (Novolog) Insulin Aspart, Recombinant 100 u/ml 10 ml vial SC SCH ×4 (07:30→22:38)
[2017-06-23] MEDS: Multivitamin Vitamin B Complex (Nephro-Vite) Tab PO SCH (08:05)
[2017-06-23] MEDS: NIFEdipine 60 mg ER Tab PO SCH ×2 (09:05→19:18)
[2017-06-23] MEDS: Pantoprazole 40 mg EC Tab PO SCH (09:16)
[2017-06-23] MEDS: Insulin Detemir 100 units/ml Vial (Levemir) SC SCH ×2 (09:17→21:21)
--- NOTE | 2017-06-23 15:23 | CP.PCM.PN ---
Subjective - Date & Time of Evaluation Date of Evaluation: 06/23/17 Time of Evaluation: 15:21 - Subjective Subjective: extra hd today for vol overload eating well stable for same. Objective - Vital Signs/Intake and Output Vital Signs (last 24 hours): Temp Pulse Resp BP Pulse Ox 98.2 F 98 H 20 170/82 H 98 06/23/17 09:00 06/23/17 09:00 06/23/17 09:00 06/23/17 14:30 06/23/17 09:00 Intake and Output: 06/23/17 06/23/17 06:59 18:59 Intake Total 600 Balance 600 - Medications Medications: Current Medications Calcium Acetate (Phoslo) 667 mg PO TIDCC [facility] Last Admin: 06/23/17 12:35 Dose: 667 mg Clonidine HCl (Catapres) 0.2 mg PO BID [facility] Last Admin: 06/23/17 09:06 Dose: 0.2 mg Diphenhydramine HCl (Benadryl) 25 mg IVP Q4 PRN PRN Reason: Itching / Pruritus Last Admin: 06/23/17 13:00 Dose: 25 mg Ergocalciferol (Drisdol 50,000 Intl Units Cap) 50,000 cap PO QWK [facility] Last Admin: 06/18/17 10:00 Dose: Not Given Gabapentin (Neurontin) 300 mg PO DAILY [facility] Last Admin: 06/23/17 09:05 Dose: 300 mg Hydralazine HCl (Apresoline) 10 mg IVP Q8H [facility] Last Admin: 06/23/17 13:54 Dose: 10 mg Hydromorphone HCl (Dilaudid) 2 mg IVP Q4H PRN PRN Reason: Pain, severe (8-10) Last Admin: 06/23/17 13:00 Dose: 2 mg Insulin Aspart (Novolog) 0 unit SC ACHS [facility] PRN Reason: Protocol Last Admin: 06/23/17 11:30 Dose: 1 unit Insulin Detemir (Levemir) 12 unit SC Q12 [facility] Last Admin: 06/23/17 09:17 Dose: 12 unit Metoclopramide HCl (Reglan) 10 mg PO DAILY [facility] Last Admin: 06/23/17 09:05 Dose: 10 mg Metronidazole (Flagyl) 500 mg PO BID [facility] Stop: 06/29/17 10:01 Last Admin: 06/23/17 09:05 Dose: 500 mg Nifedipine (Procardia Xl) 60 mg PO BID [facility] Last Admin: 06/23/17 09:05 Dose: 60 mg Ondansetron HCl (Zofran Odt) 4 mg PO Q8 PRN PRN Reason: Nausea/Vomiting Last Admin: 06/23/17 09:05 Dose: 4 mg Pantoprazole Sodium (Protonix Ec Tab) 40 mg PO DAILY [facility] Last Admin: 06/23/17 09:16 Dose: 40 mg Vitamin B Complex/Vit C/Folic Acid (Nephro-Vamshi) 1 tab PO 0800 [facility] Last Admin: 06/23/17 08:05 Dose: 1 tab - Labs Labs: 06/21/17 08:20 06/21/17 08:20 PT 11.8 SECONDS (9.7-12.2) 06/18/17 16:00 INR 1.1 06/18/17 16:00 APTT 34 SECONDS (21-34) 06/18/17 16:00 - Constitutional Appears: Non-toxic - Head Exam Head Exam: NORMAL INSPECTION - Eye Exam Eye Exam: Normal appearance - ENT Exam ENT Exam: Mucous Membranes Moist - Respiratory Exam Respiratory Exam: NORMAL BREATHING PATTERN - Cardiovascular Exam Cardiovascular Exam: REGULAR RHYTHM - GI/Abdominal Exam GI & Abdominal Exam: Soft, Normal Bowel Sounds - Extremities Exam Extremities Exam: Full ROM, Normal Capillary Refill, Normal Inspection. absent : Joint Swelling, Pedal Edema - Neurological Exam Neurological Exam: Alert, Awake, Oriented x3 - Psychiatric Exam Psychiatric exam: Normal Affect, Normal Mood - Skin Skin Exam: Dry, Intact, Normal Color, Warm Assessment and Plan - Assessment and Plan (Free Text) Plan: [facility]
[2017-06-23] MEDS ORDERED: DiphenhydrAMINE 50 mg/ml Inj IVP ONE (15:45)
[2017-06-23 15:52] LABS: BASO # 0.1 K/uL (0.0-0.2); BASO % 1.3 % (0.0-2.0); EOS # 1.3 K/uL (0.0-0.7); EOS % 16.9 % (0.0-4.0); HEMATOCRIT 32.2 % (34.0-47.0); LYMPH # 1.3 K/uL (1.0-4.3); LYMPH % 17.3 % (20.0-40.0); MEAN CORPUSCULAR HGB CONC 32.7 g/dL (33.0-37.0); MEAN PLATELET VOLUME 8.4 fL (7.2-11.7); MONO # 0.9 K/uL (0.0-0.8); MONO % 11.8 % (0.0-10.0); RED CELL DISTRIBUTION WIDTH 15.5 % (11.5-14.5); WHITE BLOOD COUNT 7.6 K/uL (4.8-10.8)
[2017-06-23 15:56] LABS: MEAN CELL VOLUME 94.7 fL (81.0-99.0)
[2017-06-23 16:00] LABS: POTASSIUM 4.8 mmol/L (3.6-5.2)
[2017-06-23 16:02] LABS: BILIRUBIN,TOTAL 0.5 mg/dL (0.2-1.3); TOTAL PROTEIN 8.6 g/dL (6.3-8.3)
[2017-06-23 16:03] LABS: CALCIUM 7.7 mg/dl (8.6-10.4)
--- NOTE | 2017-06-23 18:27 | CP.PCM.PN ---
Subjective - Date & Time of Evaluation Date of Evaluation: 06/23/17 Time of Evaluation: 09:40 - Subjective Subjective: clinically same Objective - Vital Signs/Intake and Output Vital Signs (last 24 hours): Temp Pulse Resp BP Pulse Ox 98 F 113 H 19 183/88 H 100 06/23/17 15:20 06/23/17 15:20 06/23/17 15:20 06/23/17 16:12 06/23/17 15:20 Intake and Output: 06/23/17 06/23/17 06:59 18:59 Intake Total 600 Balance 600 - Medications Medications: Current Medications Calcium Acetate (Phoslo) 667 mg PO TIDCC [facility] Last Admin: 06/23/17 12:35 Dose: 667 mg Clonidine HCl (Catapres) 0.2 mg PO BID [facility] Last Admin: 06/23/17 09:06 Dose: 0.2 mg Diphenhydramine HCl (Benadryl) 25 mg IVP Q4 PRN PRN Reason: Itching / Pruritus Last Admin: 06/23/17 17:11 Dose: 25 mg Ergocalciferol (Drisdol 50,000 Intl Units Cap) 50,000 cap PO QWK [facility] Last Admin: 06/18/17 10:00 Dose: Not Given Gabapentin (Neurontin) 300 mg PO DAILY [facility] Last Admin: 06/23/17 09:05 Dose: 300 mg Hydralazine HCl (Apresoline) 10 mg IVP Q8H [facility] Last Admin: 06/23/17 13:54 Dose: 10 mg Hydromorphone HCl (Dilaudid) 2 mg IVP Q4H PRN PRN Reason: Pain, severe (8-10) Last Admin: 06/23/17 17:11 Dose: 2 mg Insulin Aspart (Novolog) 0 unit SC ACHS [facility] PRN Reason: Protocol Last Admin: 06/23/17 11:30 Dose: 1 unit Insulin Detemir (Levemir) 12 unit SC Q12 [facility] Last Admin: 06/23/17 09:17 Dose: 12 unit Metoclopramide HCl (Reglan) 10 mg PO DAILY [facility] Last Admin: 06/23/17 09:05 Dose: 10 mg Metronidazole (Flagyl) 500 mg PO BID [facility] Stop: 06/29/17 10:01 Last Admin: 06/23/17 09:05 Dose: 500 mg Nifedipine (Procardia Xl) 60 mg PO BID [facility] Last Admin: 06/23/17 09:05 Dose: 60 mg Ondansetron HCl (Zofran Odt) 4 mg PO Q8 PRN PRN Reason: Nausea/Vomiting Last Admin: 06/23/17 09:05 Dose: 4 mg Pantoprazole Sodium (Protonix Ec Tab) 40 mg PO DAILY [facility] Last Admin: 06/23/17 09:16 Dose: 40 mg Vitamin B Complex/Vit C/Folic Acid (Nephro-Vamshi) 1 tab PO 0800 [facility] Last Admin: 06/23/17 08:05 Dose: 1 tab - Labs Labs: 06/23/17 15:42 06/23/17 15:42 PT 11.8 SECONDS (9.7-12.2) 06/18/17 16:00 INR 1.1 06/18/17 16:00 APTT 34 SECONDS (21-34) 06/18/17 16:00 - Constitutional Appears: Well - Head Exam Head Exam: ATRAUMATIC, NORMAL INSPECTION, NORMOCEPHALIC - Eye Exam Eye Exam: EOMI, Normal appearance, PERRL Pupil Exam: NORMAL ACCOMODATION, PERRL - ENT Exam ENT Exam: Mucous Membranes Moist, Normal Exam - Neck Exam Neck Exam: Full ROM, Normal Inspection. absent: Lymphadenopathy - Respiratory Exam Respiratory Exam: Decreased Breath Sounds - Cardiovascular Exam Cardiovascular Exam: REGULAR RHYTHM, +S1, +S2. absent: Murmur - GI/Abdominal Exam GI & Abdominal Exam: Soft, Normal Bowel Sounds. absent: Tenderness - Rectal Exam Rectal Exam: Deferred Assessment and Plan (1) Hypertensive crisis without congestive heart failure Status: Acute (2) Accelerated essential hypertension Status: Acute (3) Acute hyperkalemia Status: Acute (4) Acute renal failure Status: Acute (5) Adjustment disorder with anxiety Status: Acute (6) Bacteremia Status: Acute (7) Catheter-related bloodstream infection (CRBSI) Status: Acute (8) Cellulitis Status: Acute (9) Chest pain Status: Acute (10) Chronic congestive heart failure Status: Acute (11) Chronic intractable pain Status: Acute (12) Chronic pain Status: Acute (13) Congestive heart failure Status: Acute (14) Constipation Status: Acute (15) DM w/o complication type I Status: Acute (16) DVT (deep venous thrombosis) Status: Acute (17) Dehydration fever Status: Acute (18) Dyspnea Status: Acute (19) ESRD (end stage renal disease) on dialysis Status: Acute (20) Epistaxis Status: Acute (21) Esophagitis Status: Acute (22) Fever Status: Acute (23) Fluid overload Status: Acute (24) Foot ulcer Status: Acute (25) Gastric pain Status: Acute (26) 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 Status: Acute (27) Herpes Status: Acute (28) History of diabetic gastroparesis Status: Acute (29) Hyperglycemia Status: Acute (30) Hyperglycemia without ketosis Status: Acute (31) Hyperkalemia Status: Acute (32) Hypertension, malignant Status: Acute (33) Hypertensive urgency Status: Acute (34) Hypoglycemia Status: Acute (35) Infection due to central venous catheter exit site Status: Acute (36) Infection, dialysis vascular access Status: Acute (37) Intractable vomiting Status: Acute (38) Intractable vomiting Status: Acute (39) Leg swelling Status: Acute (40) Leukocytosis Status: Acute (41) Leukocytosis Status: Acute (42) Medical assessment Status: Acute (43) Narcotic addiction Status: Acute (44) Nausea Status: Acute (45) Opioid dependence Status: Acute (46) Other complication of arteriovenous dialysis fistula Status: Acute (47) Positive blood culture Status: Acute (48) Prophylactic measure Status: Acute (49) Pulmonary edema Status: Acute (50) Pulmonary edema Status: Acute (51) Renal azotemia Status: Acute (52) Renal failure Status: Acute (53) Renal function tests abnormal Status: Acute (54) Respiratory distress Status: Acute (55) Sensorineural deafness, unilateral Status: Acute (56) Sepsis Status: Acute (57) Shortness of breath Status: Acute (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 Status: Acute (59) Tearfulness Status: Acute (60) Threatening to others Status: Acute (61) UTI (lower urinary tract infection) Status: Acute (62) UTI (urinary tract infection) Status: Acute (63) Uncontrolled diabetes mellitus Status: Acute (64) Urinary tract infection symptoms Status: Acute (65) Vaginal discharge Status: Acute (66) Viral bronchitis Status: Acute (67) Vomiting Status: Acute (68) Vomiting bile Status: Acute (69) Abdominal discomfort, generalized Status: Chronic (70) Abdominal pain Status: Chronic (71) Abdominal pain Status: Chronic (72) Abdominal pain in female Status: Chronic (73) Anemia Status: Chronic (74) Anxiety Status: Chronic (75) CHF (congestive heart failure) Status: Chronic (76) Chronic abdominal pain Status: Chronic (77) Chronic pruritus Status: Chronic (78) Chronic, continuous use of opioids Status: Chronic (79) Constipation Status: Chronic (80) Dependence on renal dialysis Status: Chronic (81) Dependency on pain medication Status: Chronic (82) Diabetes Status: Chronic (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, managed as type 2 Status: Chronic (84) Drug-seeking behavior Status: Chronic (85) End stage renal disease Status: Chronic (86) End stage renal disease on dialysis Status: Chronic (87) Gastroparesis Status: Chronic (88) Hemodialysis patient Status: Chronic (89) History of osteomyelitis Status: Chronic (90) Hypertension Status: Chronic (91) Hypertension associated with diabetes Status: Chronic (92) Intractable abdominal pain Status: Chronic (93) Intractable nausea and vomiting Status: Chronic (94) Pain Status: Chronic (95) Skin lesions, generalized Status: Chronic (96) Type 1 diabetes Status: Chronic - Assessment and Plan (Free Text) Plan: Patient examined. Patient clinically better. Continue insulin. Continue supportive medications. Continue dialysis as per requirement.
[2017-06-24] MEDS: HYDROmorphone 1 mg/ml ISec IVP PRN ×6 (01:18→21:25)
[2017-06-24] MEDS: DiphenhydrAMINE 50 mg/ml Inj IVP PRN ×6 (01:18→21:25)
[2017-06-24] MEDS ORDERED: DiphenhydrAMINE 50 mg/ml Inj IVP STA (03:04)
[2017-06-24] MEDS: (Novolog) Insulin Aspart, Recombinant 100 u/ml 10 ml vial SC SCH ×4 (07:30→22:17)
[2017-06-24] MEDS: Multivitamin Vitamin B Complex (Nephro-Vite) Tab PO SCH (08:00)
[2017-06-24] MEDS: Pantoprazole 40 mg EC Tab PO SCH (10:00)
[2017-06-24] MEDS: NIFEdipine 60 mg ER Tab PO SCH ×2 (10:00→17:27)
[2017-06-24] MEDS: Insulin Detemir 100 units/ml Vial (Levemir) SC SCH ×2 (11:20→21:26)
--- NOTE | 2017-06-24 13:51 | CP.PCM.PN ---
Subjective - Date & Time of Evaluation Date of Evaluation: 06/24/17 Time of Evaluation: 09:40 - Subjective Subjective: clinically same Objective - Vital Signs/Intake and Output Vital Signs (last 24 hours): Temp Pulse Resp BP Pulse Ox 97.6 F 100 H 20 156/89 H 100 06/23/17 23:42 06/24/17 06:35 06/23/17 23:42 06/24/17 06:35 06/23/17 23:42 Intake and Output: 06/24/17 06/24/17 06:59 18:59 Intake Total 640 Balance 640 - Medications Medications: Current Medications Calcium Acetate (Phoslo) 667 mg PO TIDCC [facility] Last Admin: 06/24/17 11:23 Dose: 667 mg Clonidine HCl (Catapres) 0.2 mg PO BID [facility] Last Admin: 06/24/17 10:00 Dose: 0.2 mg Diphenhydramine HCl (Benadryl) 25 mg IVP Q4 PRN PRN Reason: Itching / Pruritus Last Admin: 06/24/17 13:20 Dose: 25 mg Ergocalciferol (Drisdol 50,000 Intl Units Cap) 50,000 cap PO QWK [facility] Last Admin: 06/18/17 10:00 Dose: Not Given Gabapentin (Neurontin) 300 mg PO DAILY [facility] Last Admin: 06/24/17 10:00 Dose: 300 mg Hydralazine HCl (Apresoline) 10 mg IVP Q8H [facility] Last Admin: 06/24/17 13:46 Dose: 10 mg Hydromorphone HCl (Dilaudid) 2 mg IVP Q4H PRN PRN Reason: Pain, severe (8-10) Last Admin: 06/24/17 13:20 Dose: 2 mg Insulin Aspart (Novolog) 0 unit SC ACHS [facility] PRN Reason: Protocol Last Admin: 06/24/17 11:30 Dose: 6 unit Insulin Detemir (Levemir) 12 unit SC Q12 [facility] Last Admin: 06/24/17 11:20 Dose: 12 unit Metoclopramide HCl (Reglan) 10 mg PO DAILY [facility] Last Admin: 06/24/17 10:00 Dose: 10 mg Metronidazole (Flagyl) 500 mg PO BID [facility] Stop: 06/29/17 10:01 Last Admin: 06/24/17 10:00 Dose: 500 mg Nifedipine (Procardia Xl) 60 mg PO BID [facility] Last Admin: 06/24/17 10:00 Dose: 60 mg Ondansetron HCl (Zofran Odt) 4 mg PO Q8 PRN PRN Reason: Nausea/Vomiting Last Admin: 06/23/17 09:05 Dose: 4 mg Pantoprazole Sodium (Protonix Ec Tab) 40 mg PO DAILY [facility] Last Admin: 06/24/17 10:00 Dose: 40 mg Vitamin B Complex/Vit C/Folic Acid (Nephro-Vamshi) 1 tab PO 0800 [facility] Last Admin: 06/24/17 08:00 Dose: 1 tab - Labs Labs: 06/23/17 15:42 06/23/17 15:42 PT 11.8 SECONDS (9.7-12.2) 06/18/17 16:00 INR 1.1 06/18/17 16:00 APTT 34 SECONDS (21-34) 06/18/17 16:00 - Constitutional Appears: Well - Head Exam Head Exam: ATRAUMATIC, NORMAL INSPECTION, NORMOCEPHALIC - Eye Exam Eye Exam: EOMI, Normal appearance, PERRL Pupil Exam: NORMAL ACCOMODATION, PERRL - ENT Exam ENT Exam: Mucous Membranes Moist, Normal Exam - Neck Exam Neck Exam: Full ROM, Normal Inspection. absent: Lymphadenopathy - Respiratory Exam Respiratory Exam: Decreased Breath Sounds - Cardiovascular Exam Cardiovascular Exam: REGULAR RHYTHM, +S1, +S2 - GI/Abdominal Exam GI & Abdominal Exam: Soft, Diminished Bowel Sounds - Rectal Exam Rectal Exam: Deferred Assessment and Plan (1) Abdominal discomfort, generalized Status: Chronic (2) Abdominal pain Status: Chronic (3) Abdominal pain Status: Chronic (4) Abdominal pain in female Status: Chronic (5) Accelerated essential hypertension Status: Acute (6) Acute hyperkalemia Status: Acute (7) Acute renal failure Status: Acute (8) Adjustment disorder with anxiety Status: Acute (9) Anemia Status: Chronic (10) Anxiety Status: Chronic (11) Bacteremia Status: Acute (12) Catheter-related bloodstream infection (CRBSI) Status: Acute (13) Cellulitis Status: Acute (14) Chest pain Status: Acute (15) CHF (congestive heart failure) Status: Chronic (16) Chronic abdominal pain Status: Chronic (17) Chronic congestive heart failure Status: Acute (18) Chronic intractable pain Status: Acute (19) Chronic pain Status: Acute (20) Chronic pruritus Status: Chronic (21) Chronic, continuous use of opioids Status: Chronic (22) Congestive heart failure Status: Acute (23) Constipation Status: Acute (24) Constipation Status: Chronic (25) Dehydration fever Status: Acute (26) Dependence on renal dialysis Status: Chronic (27) Dependency on pain medication Status: Chronic (28) Diabetes Status: Chronic (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, managed as type 2 Status: Chronic (30) DM w/o complication type I Status: Acute (31) Drug-seeking behavior Status: Chronic (32) DVT (deep venous thrombosis) Status: Acute (33) Dyspnea Status: Acute (34) End stage renal disease Status: Chronic (35) End stage renal disease on dialysis Status: Chronic (36) Epistaxis Status: Acute (37) Esophagitis Status: Acute (38) ESRD (end stage renal disease) on dialysis Status: Acute (39) Fever Status: Acute (40) Fluid overload Status: Acute (41) Foot ulcer Status: Acute (42) Gastric pain Status: Acute (43) 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 Status: Acute (44) Gastroparesis Status: Chronic (45) Hemodialysis patient Status: Chronic (46) Herpes Status: Acute (47) History of diabetic gastroparesis Status: Acute (48) History of osteomyelitis Status: Chronic (49) Hyperglycemia Status: Acute (50) Hyperglycemia without ketosis Status: Acute (51) Hyperkalemia Status: Acute (52) Hypertension Status: Chronic (53) Hypertension associated with diabetes Status: Chronic (54) Hypertension, malignant Status: Acute (55) Hypertensive crisis without congestive heart failure Status: Acute (56) Hypertensive urgency Status: Acute (57) Hypoglycemia Status: Acute (58) Infection due to central venous catheter exit site Status: Acute (59) Infection, dialysis vascular access Status: Acute (60) Intractable abdominal pain Status: Chronic (61) Intractable nausea and vomiting Status: Chronic (62) Intractable vomiting Status: Acute (63) Intractable vomiting Status: Acute (64) Leg swelling Status: Acute (65) Leukocytosis Status: Acute (66) Leukocytosis Status: Acute (67) Medical assessment Status: Acute (68) Narcotic addiction Status: Acute (69) Nausea Status: Acute (70) Opioid dependence Status: Acute (71) Other complication of arteriovenous dialysis fistula Status: Acute (72) Pain Status: Chronic (73) Positive blood culture Status: Acute (74) Prophylactic measure Status: Acute (75) Pulmonary edema Status: Acute (76) Pulmonary edema Status: Acute (77) Renal azotemia Status: Acute (78) Renal failure Status: Acute (79) Renal function tests abnormal Status: Acute (80) Respiratory distress Status: Acute (81) Sensorineural deafness, unilateral Status: Acute (82) Sepsis Status: Acute (83) Shortness of breath Status: Acute (84) Skin lesions, generalized Status: Chronic (85) Sternal osteomyelitis Status: Acute (86) Tearfulness Status: Acute (87) Threatening to others Status: Acute (88) Type 1 diabetes Status: Chronic (89) Uncontrolled diabetes mellitus Status: Acute (90) Urinary tract infection symptoms Status: Acute (91) UTI (lower urinary tract infection) Status: Acute (92) UTI (urinary tract infection) Status: Acute (93) Vaginal discharge Status: Acute (94) Viral bronchitis Status: Acute (95) Vomiting Status: Acute (96) Vomiting bile Status: Acute - Assessment and Plan (Free Text) Plan: Patient examined. Patient clinically better. Continue dialysis per requirement. Continue insulin. Continue metoclopramide. Continue metronidazole for bacterial vaginosis. Continue antihypertensive medications. Continue supportive care.
[2017-06-25] MEDS: DiphenhydrAMINE 50 mg/ml Inj IVP PRN ×6 (01:25→21:24)
[2017-06-25] MEDS: HYDROmorphone 1 mg/ml ISec IVP PRN ×2 (01:26→05:27)
[2017-06-25] MEDS: (Novolog) Insulin Aspart, Recombinant 100 u/ml 10 ml vial SC SCH ×4 (08:06→21:56)
[2017-06-25] MEDS: Multivitamin Vitamin B Complex (Nephro-Vite) Tab PO SCH (08:11)
[2017-06-25] MEDS ORDERED: DiphenhydrAMINE 50 mg/ml Inj IVP ONE ×2 (12:15→15:15)
[2017-06-25] MEDS: Insulin Detemir 100 units/ml Vial (Levemir) SC SCH ×2 (12:38→22:00)
[2017-06-25] MEDS: Pantoprazole 40 mg EC Tab PO SCH (12:38)
[2017-06-25] MEDS: Ergocalciferol 50,000 Intl Units Cap PO SCH (12:41)
[2017-06-25] MEDS: NIFEdipine 60 mg ER Tab PO SCH ×3 (13:38→19:15)
--- NOTE | 2017-06-25 19:10 | CP.PCM.PN ---
Subjective - Date & Time of Evaluation Date of Evaluation: 06/25/17 Time of Evaluation: 08:40 - Subjective Subjective: clinically same Objective - Vital Signs/Intake and Output Vital Signs (last 24 hours): Temp Pulse Resp BP Pulse Ox 98.1 F 105 H 18 177/107 H 100 06/25/17 14:40 06/25/17 14:40 06/25/17 14:40 06/25/17 17:45 06/25/17 14:40 - Medications Medications: Current Medications Calcium Acetate (Phoslo) 667 mg PO TIDCC [facility] Last Admin: 06/25/17 12:38 Dose: 667 mg Clonidine HCl (Catapres) 0.2 mg PO BID [facility] Last Admin: 06/25/17 19:06 Dose: Not Given Diphenhydramine HCl (Benadryl) 25 mg IVP Q4 PRN PRN Reason: Itching / Pruritus Last Admin: 06/25/17 17:29 Dose: 25 mg Ergocalciferol (Drisdol 50,000 Intl Units Cap) 50,000 cap PO QWK [facility] Last Admin: 06/25/17 12:41 Dose: 50,000 cap Gabapentin (Neurontin) 300 mg PO DAILY [facility] Last Admin: 06/25/17 13:37 Dose: Not Given Hydralazine HCl (Apresoline) 10 mg IVP Q8H [facility] Last Admin: 06/25/17 13:37 Dose: Not Given Hydromorphone HCl (Dilaudid) 2 mg IVP Q4H PRN PRN Reason: Pain, severe (8-10) Last Admin: 06/25/17 17:26 Dose: 2 mg Insulin Aspart (Novolog) 0 unit SC ACHS [facility] PRN Reason: Protocol Last Admin: 06/25/17 19:07 Dose: Not Given Insulin Detemir (Levemir) 12 unit SC Q12 [facility] Last Admin: 06/25/17 12:38 Dose: 12 unit Metoclopramide HCl (Reglan) 10 mg PO DAILY [facility] Last Admin: 06/25/17 13:38 Dose: Not Given Metronidazole (Flagyl) 500 mg PO BID [facility] Stop: 06/29/17 10:01 Last Admin: 06/25/17 12:38 Dose: 500 mg Nifedipine (Procardia Xl) 60 mg PO BID [facility] Last Admin: 06/25/17 19:07 Dose: Not Given Ondansetron HCl (Zofran Odt) 4 mg PO Q8 PRN PRN Reason: Nausea/Vomiting Last Admin: 06/23/17 09:05 Dose: 4 mg Pantoprazole Sodium (Protonix Ec Tab) 40 mg PO DAILY [facility] Last Admin: 06/25/17 12:38 Dose: 40 mg Vitamin B Complex/Vit C/Folic Acid (Nephro-Vamshi) 1 tab PO 0800 [facility] Last Admin: 06/25/17 08:11 Dose: 1 tab - Labs Labs: 06/23/17 15:42 06/23/17 15:42 PT 11.8 SECONDS (9.7-12.2) 06/18/17 16:00 INR 1.1 06/18/17 16:00 APTT 34 SECONDS (21-34) 06/18/17 16:00 - Constitutional Appears: Well - Head Exam Head Exam: ATRAUMATIC, NORMAL INSPECTION, NORMOCEPHALIC - Eye Exam Eye Exam: EOMI, Normal appearance, PERRL Pupil Exam: NORMAL ACCOMODATION, PERRL - ENT Exam ENT Exam: Mucous Membranes Moist, Normal Exam - Neck Exam Neck Exam: Full ROM, Normal Inspection. absent: Lymphadenopathy - Respiratory Exam Respiratory Exam: Decreased Breath Sounds - Cardiovascular Exam Cardiovascular Exam: REGULAR RHYTHM, +S1, +S2 - GI/Abdominal Exam GI & Abdominal Exam: Soft, Diminished Bowel Sounds - Rectal Exam Rectal Exam: Deferred Assessment and Plan (1) Hypertensive crisis without congestive heart failure Status: Acute (2) Accelerated essential hypertension Status: Acute (3) Acute hyperkalemia Status: Acute (4) Acute renal failure Status: Acute (5) Adjustment disorder with anxiety Status: Acute (6) Bacteremia Status: Acute (7) Catheter-related bloodstream infection (CRBSI) Status: Acute (8) Cellulitis Status: Acute (9) Chest pain Status: Acute (10) Chronic congestive heart failure Status: Acute (11) Chronic intractable pain Status: Acute (12) Chronic pain Status: Acute (13) Congestive heart failure Status: Acute (14) Constipation Status: Acute (15) DM w/o complication type I Status: Acute (16) DVT (deep venous thrombosis) Status: Acute (17) Dehydration fever Status: Acute (18) Dyspnea Status: Acute (19) ESRD (end stage renal disease) on dialysis Status: Acute (20) Epistaxis Status: Acute (21) Esophagitis Status: Acute (22) Fever Status: Acute (23) Fluid overload Status: Acute (24) Foot ulcer Status: Acute (25) Gastric pain Status: Acute (26) 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 Status: Acute (27) Herpes Status: Acute (28) History of diabetic gastroparesis Status: Acute (29) Hyperglycemia Status: Acute (30) Hyperglycemia without ketosis Status: Acute (31) Hyperkalemia Status: Acute (32) Hypertension, malignant Status: Acute (33) Hypertensive urgency Status: Acute (34) Hypoglycemia Status: Acute (35) Infection due to central venous catheter exit site Status: Acute (36) Infection, dialysis vascular access Status: Acute (37) Intractable vomiting Status: Acute (38) Intractable vomiting Status: Acute (39) Leg swelling Status: Acute (40) Leukocytosis Status: Acute (41) Leukocytosis Status: Acute (42) Medical assessment Status: Acute (43) Narcotic addiction Status: Acute (44) Nausea Status: Acute (45) Opioid dependence Status: Acute (46) Other complication of arteriovenous dialysis fistula Status: Acute (47) Positive blood culture Status: Acute (48) Prophylactic measure Status: Acute (49) Pulmonary edema Status: Acute (50) Pulmonary edema Status: Acute (51) Renal azotemia Status: Acute (52) Renal failure Status: Acute (53) Renal function tests abnormal Status: Acute (54) Respiratory distress Status: Acute (55) Sensorineural deafness, unilateral Status: Acute (56) Sepsis Status: Acute (57) Shortness of breath Status: Acute (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 Status: Acute (59) Tearfulness Status: Acute (60) Threatening to others Status: Acute (61) UTI (lower urinary tract infection) Status: Acute (62) UTI (urinary tract infection) Status: Acute (63) Uncontrolled diabetes mellitus Status: Acute (64) Urinary tract infection symptoms Status: Acute (65) Vaginal discharge Status: Acute (66) Viral bronchitis Status: Acute (67) Vomiting Status: Acute (68) Vomiting bile Status: Acute (69) Abdominal discomfort, generalized Status: Chronic (70) Abdominal pain Status: Chronic (71) Abdominal pain Status: Chronic (72) Abdominal pain in female Status: Chronic (73) Anemia Status: Chronic (74) Anxiety Status: Chronic (75) CHF (congestive heart failure) Status: Chronic (76) Chronic abdominal pain Status: Chronic (77) Chronic pruritus Status: Chronic (78) Chronic, continuous use of opioids Status: Chronic (79) Constipation Status: Chronic (80) Dependence on renal dialysis Status: Chronic (81) Dependency on pain medication Status: Chronic (82) Diabetes Status: Chronic (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, managed as type 2 Status: Chronic (84) Drug-seeking behavior Status: Chronic (85) End stage renal disease Status: Chronic (86) End stage renal disease on dialysis Status: Chronic (87) Gastroparesis Status: Chronic (88) Hemodialysis patient Status: Chronic (89) History of osteomyelitis Status: Chronic (90) Hypertension Status: Chronic (91) Hypertension associated with diabetes Status: Chronic (92) Intractable abdominal pain Status: Chronic (93) Intractable nausea and vomiting Status: Chronic (94) Pain Status: Chronic (95) Skin lesions, generalized Status: Chronic (96) Type 1 diabetes Status: Chronic - Assessment and Plan (Free Text) Plan: Patient examined. Patient medically better. Continue insulin. Continue metronidazole for stenosis. Continue antihypertensive medications. Continue supportive care.
--- NOTE | 2017-06-25 19:25 | CP.PCM.PN ---
Subjective - Date & Time of Evaluation Date of Evaluation: 06/25/17 Time of Evaluation: 14:00 - Subjective Subjective: SEEN ON RENAL F/U SEEN ON HD ' ALL PREVIOUS EMR REVIEWED FEELS IMPROVED Objective - Vital Signs/Intake and Output Vital Signs (last 24 hours): Temp Pulse Resp BP Pulse Ox 98.1 F 109 H 18 172/60 H 100 06/25/17 14:40 06/25/17 19:13 06/25/17 14:40 06/25/17 19:13 06/25/17 14:40 - Medications Medications: Current Medications Calcium Acetate (Phoslo) 667 mg PO TIDCC [facility] Last Admin: 06/25/17 19:11 Dose: 667 mg Clonidine HCl (Catapres) 0.2 mg PO BID [facility] Last Admin: 06/25/17 19:15 Dose: 0.2 mg Diphenhydramine HCl (Benadryl) 25 mg IVP Q4 PRN PRN Reason: Itching / Pruritus Last Admin: 06/25/17 17:29 Dose: 25 mg Ergocalciferol (Drisdol 50,000 Intl Units Cap) 50,000 cap PO QWK [facility] Last Admin: 06/25/17 12:41 Dose: 50,000 cap Gabapentin (Neurontin) 300 mg PO DAILY [facility] Last Admin: 06/25/17 13:37 Dose: Not Given Hydralazine HCl (Apresoline) 10 mg IVP Q8H [facility] Last Admin: 06/25/17 13:37 Dose: Not Given Hydromorphone HCl (Dilaudid) 2 mg IVP Q4H PRN PRN Reason: Pain, severe (8-10) Last Admin: 06/25/17 17:26 Dose: 2 mg Insulin Aspart (Novolog) 0 unit SC ACHS [facility] PRN Reason: Protocol Last Admin: 06/25/17 19:07 Dose: Not Given Insulin Detemir (Levemir) 12 unit SC Q12 [facility] Last Admin: 06/25/17 12:38 Dose: 12 unit Metoclopramide HCl (Reglan) 10 mg PO DAILY [facility] Last Admin: 06/25/17 13:38 Dose: Not Given Metronidazole (Flagyl) 500 mg PO BID [facility] Stop: 06/29/17 10:01 Last Admin: 06/25/17 19:12 Dose: 500 mg Nifedipine (Procardia Xl) 60 mg PO BID [facility] Last Admin: 06/25/17 19:15 Dose: 60 mg Ondansetron HCl (Zofran Odt) 4 mg PO Q8 PRN PRN Reason: Nausea/Vomiting Last Admin: 06/23/17 09:05 Dose: 4 mg Pantoprazole Sodium (Protonix Ec Tab) 40 mg PO DAILY [facility] Last Admin: 06/25/17 12:38 Dose: 40 mg Vitamin B Complex/Vit C/Folic Acid (Nephro-Vamshi) 1 tab PO 0800 [facility] Last Admin: 06/25/17 08:11 Dose: 1 tab - Labs Labs: 06/23/17 15:42 06/23/17 15:42 PT 11.8 SECONDS (9.7-12.2) 06/18/17 16:00 INR 1.1 06/18/17 16:00 APTT 34 SECONDS (21-34) 06/18/17 16:00 Assessment and Plan - Assessment and Plan (Free Text) Assessment: ESRD ON HD M W F AND SAT ANEMIA OF CKD .. H/H STABLE MMP P : C/O CURRENT CARE C/O SUPPORTIVE MANAGEMENT
[2017-06-26] MEDS: DiphenhydrAMINE 50 mg/ml Inj IVP PRN ×6 (01:24→22:23)
[2017-06-26] MEDS ORDERED: DiphenhydrAMINE 50 mg/ml Inj IVP STA (03:51)
[2017-06-26] MEDS: (Novolog) Insulin Aspart, Recombinant 100 u/ml 10 ml vial SC SCH ×4 (08:30→21:54)
[2017-06-26] MEDS: Multivitamin Vitamin B Complex (Nephro-Vite) Tab PO SCH (08:51)
[2017-06-26] MEDS: NIFEdipine 60 mg ER Tab PO SCH ×2 (09:51→17:49)
[2017-06-26] MEDS: Pantoprazole 40 mg EC Tab PO SCH (09:51)
[2017-06-26] MEDS: Insulin Detemir 100 units/ml Vial (Levemir) SC SCH ×2 (09:54→22:24)
--- NOTE | 2017-06-26 19:15 | CP.PCM.PN ---
Subjective - Date & Time of Evaluation Date of Evaluation: 06/26/17 Time of Evaluation: 15:00 - Subjective Subjective: SEEN ON RENAL F/U FEELS IMPROVED ON HD M W F AND SAT Objective - Vital Signs/Intake and Output Vital Signs (last 24 hours): Temp Pulse Resp BP Pulse Ox 97.8 F 96 H 20 177/97 H 100 06/26/17 15:21 06/26/17 15:21 06/26/17 15:21 06/26/17 15:21 06/26/17 15:21 Intake and Output: 06/26/17 06/27/17 18:59 06:59 Intake Total 300 Balance 300 - Medications Medications: Current Medications Calcium Acetate (Phoslo) 667 mg PO TIDCC [facility] Last Admin: 06/26/17 17:49 Dose: 667 mg Clonidine HCl (Catapres) 0.2 mg PO BID [facility] Last Admin: 06/26/17 17:49 Dose: 0.2 mg Diphenhydramine HCl (Benadryl) 25 mg IVP Q4 PRN PRN Reason: Itching / Pruritus Last Admin: 06/26/17 17:48 Dose: 25 mg Ergocalciferol (Drisdol 50,000 Intl Units Cap) 50,000 cap PO QWK [facility] Last Admin: 06/25/17 12:41 Dose: 50,000 cap Gabapentin (Neurontin) 300 mg PO DAILY [facility] Last Admin: 06/26/17 09:51 Dose: 300 mg Hydralazine HCl (Apresoline) 10 mg IVP Q8H [facility] Last Admin: 06/26/17 14:19 Dose: 10 mg Hydromorphone HCl (Dilaudid) 2 mg IVP Q4H PRN PRN Reason: Pain, severe (8-10) Last Admin: 06/26/17 17:49 Dose: 2 mg Insulin Aspart (Novolog) 0 unit SC ACHS [facility] PRN Reason: Protocol Last Admin: 06/26/17 17:49 Dose: 4 unit Insulin Detemir (Levemir) 12 unit SC Q12 [facility] Last Admin: 06/26/17 09:54 Dose: 12 unit Metoclopramide HCl (Reglan) 10 mg PO DAILY [facility] Last Admin: 06/26/17 09:51 Dose: 10 mg Metronidazole (Flagyl) 500 mg PO BID [facility] Stop: 06/29/17 10:01 Last Admin: 06/26/17 17:49 Dose: 500 mg Nifedipine (Procardia Xl) 60 mg PO BID [facility] Last Admin: 06/26/17 17:49 Dose: 60 mg Ondansetron HCl (Zofran Odt) 4 mg PO Q8 PRN PRN Reason: Nausea/Vomiting Last Admin: 06/23/17 09:05 Dose: 4 mg Pantoprazole Sodium (Protonix Ec Tab) 40 mg PO DAILY [facility] Last Admin: 06/26/17 09:51 Dose: 40 mg Vitamin B Complex/Vit C/Folic Acid (Nephro-Vamshi) 1 tab PO 0800 [facility] Last Admin: 06/26/17 08:51 Dose: Not Given - Labs Labs: 06/23/17 15:42 06/23/17 15:42 PT 11.8 SECONDS (9.7-12.2) 06/18/17 16:00 INR 1.1 06/18/17 16:00 APTT 34 SECONDS (21-34) 06/18/17 16:00 Assessment and Plan - Assessment and Plan (Free Text) Assessment: ESRD ON HD M W F AND SAT ANEMIA OF CKD .. ON EPO AND FERRLICIT MULTIPLE CO MORBIDITIES P : C/O CURRENT CARE C/O PRESENT MANAGEMENT
[2017-06-26] MEDS ORDERED: Albuterol-Ipratrop 3 mg / 0.5 (3 ml) UD INH STA (20:31)
--- NOTE | 2017-06-26 20:38 | CP.PCM.PN ---
Subjective - Date & Time of Evaluation Date of Evaluation: 06/26/17 Time of Evaluation: 08:20 - Subjective Subjective: clinically same Objective - Vital Signs/Intake and Output Vital Signs (last 24 hours): Temp Pulse Resp BP Pulse Ox 97.8 F 96 H 20 177/97 H 100 06/26/17 15:21 06/26/17 15:21 06/26/17 15:21 06/26/17 15:21 06/26/17 15:21 Intake and Output: 06/26/17 06/27/17 18:59 06:59 Intake Total 300 Balance 300 - Medications Medications: Current Medications Calcium Acetate (Phoslo) 667 mg PO TIDCC [facility] Last Admin: 06/26/17 17:49 Dose: 667 mg Clonidine HCl (Catapres) 0.2 mg PO BID [facility] Last Admin: 06/26/17 17:49 Dose: 0.2 mg Diphenhydramine HCl (Benadryl) 25 mg IVP Q4 PRN PRN Reason: Itching / Pruritus Last Admin: 06/26/17 17:48 Dose: 25 mg Ergocalciferol (Drisdol 50,000 Intl Units Cap) 50,000 cap PO QWK [facility] Last Admin: 06/25/17 12:41 Dose: 50,000 cap Gabapentin (Neurontin) 300 mg PO DAILY [facility] Last Admin: 06/26/17 09:51 Dose: 300 mg Hydralazine HCl (Apresoline) 10 mg IVP Q8H [facility] Last Admin: 06/26/17 14:19 Dose: 10 mg Hydromorphone HCl (Dilaudid) 2 mg IVP Q4H PRN PRN Reason: Pain, severe (8-10) Last Admin: 06/26/17 17:49 Dose: 2 mg Insulin Aspart (Novolog) 0 unit SC ACHS [facility] PRN Reason: Protocol Last Admin: 06/26/17 17:49 Dose: 4 unit Insulin Detemir (Levemir) 12 unit SC Q12 [facility] Last Admin: 06/26/17 09:54 Dose: 12 unit Metoclopramide HCl (Reglan) 10 mg PO DAILY [facility] Last Admin: 06/26/17 09:51 Dose: 10 mg Metronidazole (Flagyl) 500 mg PO BID [facility] Stop: 06/29/17 10:01 Last Admin: 06/26/17 17:49 Dose: 500 mg Nifedipine (Procardia Xl) 60 mg PO BID [facility] Last Admin: 06/26/17 17:49 Dose: 60 mg Ondansetron HCl (Zofran Odt) 4 mg PO Q8 PRN PRN Reason: Nausea/Vomiting Last Admin: 06/23/17 09:05 Dose: 4 mg Pantoprazole Sodium (Protonix Ec Tab) 40 mg PO DAILY [facility] Last Admin: 06/26/17 09:51 Dose: 40 mg Vitamin B Complex/Vit C/Folic Acid (Nephro-Vamshi) 1 tab PO 0800 [facility] Last Admin: 06/26/17 08:51 Dose: Not Given - Labs Labs: 06/23/17 15:42 06/23/17 15:42 PT 11.8 SECONDS (9.7-12.2) 06/18/17 16:00 INR 1.1 06/18/17 16:00 APTT 34 SECONDS (21-34) 06/18/17 16:00 - Constitutional Appears: Well - Head Exam Head Exam: ATRAUMATIC, NORMAL INSPECTION, NORMOCEPHALIC - Eye Exam Eye Exam: EOMI, Normal appearance, PERRL Pupil Exam: NORMAL ACCOMODATION, PERRL - ENT Exam ENT Exam: Mucous Membranes Moist, Normal Exam - Neck Exam Neck Exam: Full ROM, Normal Inspection. absent: Lymphadenopathy - Respiratory Exam Respiratory Exam: Decreased Breath Sounds - Cardiovascular Exam Cardiovascular Exam: REGULAR RHYTHM, +S1, +S2 - GI/Abdominal Exam GI & Abdominal Exam: Soft, Diminished Bowel Sounds - Rectal Exam Rectal Exam: Deferred Assessment and Plan (1) Hypertensive crisis without congestive heart failure Status: Acute (2) Accelerated essential hypertension Status: Acute (3) Acute hyperkalemia Status: Acute (4) Acute renal failure Status: Acute (5) Adjustment disorder with anxiety Status: Acute (6) Bacteremia Status: Acute (7) Catheter-related bloodstream infection (CRBSI) Status: Acute (8) Cellulitis Status: Acute (9) Chest pain Status: Acute (10) Chronic congestive heart failure Status: Acute (11) Chronic intractable pain Status: Acute (12) Chronic pain Status: Acute (13) Congestive heart failure Status: Acute (14) Constipation Status: Acute (15) DM w/o complication type I Status: Acute (16) DVT (deep venous thrombosis) Status: Acute (17) Dehydration fever Status: Acute (18) Dyspnea Status: Acute (19) ESRD (end stage renal disease) on dialysis Status: Acute (20) Epistaxis Status: Acute (21) Esophagitis Status: Acute (22) Fever Status: Acute (23) Fluid overload Status: Acute (24) Foot ulcer Status: Acute (25) Gastric pain Status: Acute (26) 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 Status: Acute (27) Herpes Status: Acute (28) History of diabetic gastroparesis Status: Acute (29) Hyperglycemia Status: Acute (30) Hyperglycemia without ketosis Status: Acute (31) Hyperkalemia Status: Acute (32) Hypertension, malignant Status: Acute (33) Hypertensive urgency Status: Acute (34) Hypoglycemia Status: Acute (35) Infection due to central venous catheter exit site Status: Acute (36) Infection, dialysis vascular access Status: Acute (37) Intractable vomiting Status: Acute (38) Intractable vomiting Status: Acute (39) Leg swelling Status: Acute (40) Leukocytosis Status: Acute (41) Leukocytosis Status: Acute (42) Medical assessment Status: Acute (43) Narcotic addiction Status: Acute (44) Nausea Status: Acute (45) Opioid dependence Status: Acute (46) Other complication of arteriovenous dialysis fistula Status: Acute (47) Positive blood culture Status: Acute (48) Prophylactic measure Status: Acute (49) Pulmonary edema Status: Acute (50) Pulmonary edema Status: Acute (51) Renal azotemia Status: Acute (52) Renal failure Status: Acute (53) Renal function tests abnormal Status: Acute (54) Respiratory distress Status: Acute (55) Sensorineural deafness, unilateral Status: Acute (56) Sepsis Status: Acute (57) Shortness of breath Status: Acute (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 Status: Acute (59) Tearfulness Status: Acute (60) Threatening to others Status: Acute (61) UTI (lower urinary tract infection) Status: Acute (62) UTI (urinary tract infection) Status: Acute (63) Uncontrolled diabetes mellitus Status: Acute (64) Urinary tract infection symptoms Status: Acute (65) Vaginal discharge Status: Acute (66) Viral bronchitis Status: Acute (67) Vomiting Status: Acute (68) Vomiting bile Status: Acute (69) Abdominal discomfort, generalized Status: Chronic (70) Abdominal pain Status: Chronic (71) Abdominal pain Status: Chronic (72) Abdominal pain in female Status: Chronic (73) Anemia Status: Chronic (74) Anxiety Status: Chronic (75) CHF (congestive heart failure) Status: Chronic (76) Chronic abdominal pain Status: Chronic (77) Chronic pruritus Status: Chronic (78) Chronic, continuous use of opioids Status: Chronic (79) Constipation Status: Chronic (80) Dependence on renal dialysis Status: Chronic (81) Dependency on pain medication Status: Chronic (82) Diabetes Status: Chronic (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, managed as type 2 Status: Chronic (84) Drug-seeking behavior Status: Chronic (85) End stage renal disease Status: Chronic (86) End stage renal disease on dialysis Status: Chronic (87) Gastroparesis Status: Chronic (88) Hemodialysis patient Status: Chronic (89) History of osteomyelitis Status: Chronic (90) Hypertension Status: Chronic (91) Hypertension associated with diabetes Status: Chronic (92) Intractable abdominal pain Status: Chronic (93) Intractable nausea and vomiting Status: Chronic (94) Pain Status: Chronic (95) Skin lesions, generalized Status: Chronic (96) Type 1 diabetes Status: Chronic - Assessment and Plan (Free Text) Plan: Patient examined. Patient better. Continue all medications. Continue supportive care.
[2017-06-27] MEDS: DiphenhydrAMINE 50 mg/ml Inj IVP PRN ×4 (02:05→17:54)
[2017-06-27 07:56] VITALS: RESP 20
[2017-06-27] MEDS: (Novolog) Insulin Aspart, Recombinant 100 u/ml 10 ml vial SC SCH ×3 (08:17→16:47)
[2017-06-27] MEDS: Multivitamin Vitamin B Complex (Nephro-Vite) Tab PO SCH (08:17)
[2017-06-27] MEDS: Pantoprazole 40 mg EC Tab PO SCH (10:08)
[2017-06-27] MEDS: NIFEdipine 60 mg ER Tab PO SCH ×2 (10:08→17:55)
[2017-06-27] MEDS: Insulin Detemir 100 units/ml Vial (Levemir) SC SCH (10:09)
[2017-06-27] MEDS ORDERED: DiphenhydrAMINE 50 mg/ml Inj IM ONE (12:43)
[2017-06-27] MEDS ORDERED: DiphenhydrAMINE 50 mg/ml Inj IVP ONE (15:00)
--- NOTE | 2017-06-27 16:29 | CP.PCM.PN ---
Subjective - Date & Time of Evaluation Date of Evaluation: 06/27/17 Time of Evaluation: 16:29 - Subjective Subjective: PT SEEN AND EXAMINED TODAY, RESP EASY AND UNLABORED, NAD Objective - Vital Signs/Intake and Output Vital Signs (last 24 hours): Temp Pulse Resp BP Pulse Ox 97.9 F 85 20 126/53 L 100 06/27/17 12:40 06/27/17 12:40 06/27/17 12:40 06/27/17 15:40 06/27/17 12:40 Intake and Output: 06/27/17 06/27/17 06:59 18:59 Intake Total 280 Balance 280 - Medications Medications: Current Medications Calcium Acetate (Phoslo) 667 mg PO TIDCC [facility] Last Admin: 06/27/17 12:09 Dose: Not Given Clonidine HCl (Catapres) 0.2 mg PO BID [facility] Last Admin: 06/27/17 10:08 Dose: 0.2 mg Diphenhydramine HCl (Benadryl) 25 mg IVP Q4 PRN PRN Reason: Itching / Pruritus Last Admin: 06/27/17 10:08 Dose: 25 mg Ergocalciferol (Drisdol 50,000 Intl Units Cap) 50,000 cap PO QWK [facility] Last Admin: 06/25/17 12:41 Dose: 50,000 cap Gabapentin (Neurontin) 300 mg PO DAILY [facility] Last Admin: 06/27/17 10:08 Dose: 300 mg Hydralazine HCl (Apresoline) 10 mg IVP Q8H [facility] Last Admin: 06/27/17 14:17 Dose: Not Given Hydromorphone HCl (Dilaudid) 2 mg IVP Q4H PRN PRN Reason: Pain, severe (8-10) Last Admin: 06/27/17 14:22 Dose: 2 mg Insulin Aspart (Novolog) 0 unit SC ACHS [facility] PRN Reason: Protocol Last Admin: 06/27/17 12:15 Dose: Not Given Insulin Detemir (Levemir) 12 unit SC Q12 [facility] Last Admin: 06/27/17 10:09 Dose: 12 unit Metoclopramide HCl (Reglan) 10 mg PO DAILY [facility] Last Admin: 06/27/17 10:08 Dose: 10 mg Nifedipine (Procardia Xl) 60 mg PO BID [facility] Last Admin: 06/27/17 10:08 Dose: 60 mg Ondansetron HCl (Zofran Odt) 4 mg PO Q8 PRN PRN Reason: Nausea/Vomiting Last Admin: 06/23/17 09:05 Dose: 4 mg Pantoprazole Sodium (Protonix Ec Tab) 40 mg PO DAILY [facility] Last Admin: 06/27/17 10:08 Dose: 40 mg Vitamin B Complex/Vit C/Folic Acid (Nephro-Vamshi) 1 tab PO 0800 [facility] Last Admin: 06/27/17 08:17 Dose: 1 tab - Labs Labs: 06/23/17 15:42 06/23/17 15:42 PT 11.8 SECONDS (9.7-12.2) 06/18/17 16:00 INR 1.1 06/18/17 16:00 APTT 34 SECONDS (21-34) 06/18/17 16:00 Assessment and Plan - Assessment and Plan (Free Text) Plan: 31 Y/O FEMALE WITH PMHX ADMITTED FOR RX FOR FENTANYL PATCH PER DR CAVRALHO EDUCATED TO F/U WITH DR CARVALHO IN THE OFFICE F/U WITH OUTPT PAIN MANAGEMENT IN THE OFFICE RETURN TO ER FOR WORSENING S/S
[2017-06-27 16:55] VITALS: BP 147/83; PULSE 111; TEMP 97.1; O2SAT 97
--- NOTE | 2017-06-28 08:35 | PQF RENAL ---
This form is a permanent part of the medical record Dr. Sexton please clarify if this patient was treated for Acute Renal Failure. Patient with history of many comorbidities with ESRD on hemodialyses. Clarification of your documentation is requested to better reflect the severity of illness and intensity of treatment of your patient. Indicators present [] Oliguria/anuria [] Edema/weight gain [] Hyponatremia [] Confusion/mental status changes [] Increased Blood Urea Nitrogen/Creatinine [] Increased Potassium/Decreased potassium [] Anemia (male <13.5, female <12.0) [] Proteinuria [] Metabolic Acidosis OR Alkalosis [] Hypotension/shock [] Decreased GFR [] Other: [] Location in the medical record that reflects the above clinical findings: PHYSICIAN'S RESPONSE Based on your medical judgment of the clinical indicators outlined above, are you treating this patient for a known or suspected: [] Acute Renal Failure [] Acute Kidney Injury [] Azotemia/prerenal azotemia [] Chronic kidney disease Stage I [] Stage II [] Stage III [] Stage IV [] [] Other condition/diagnosis:[] [] If Unable to Determine, please check the box, sign and date. Present On Admission (POA) Indicator: [] Present at the time of admission [] Not present at the time of admission [] Clinically Undetermined In responding to this query, please exercise your independent professional judgment. The fact that a question is asked does not imply that any particular answer is desired or expected. Thank you for your clarification on this documentation. 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
== END 2017-06-27 18:51 | disposition home or self-care (01) | DRG 134 ==
LOC: C.ER 17:19 → C.9E 17:58 → C.5S 23:00
PROVIDERS: ADMIT Internal Medicine Nephrology; ATTEND Internal Medicine Nephrology
PROC: 5A1D70Z Performance of Urinary Filtration, Intermittent, Less than 6 Hours Per Day (ICD-10-PCS; principal; 2017-06-18)
DX: I16.0 Hypertensive urgency (principal); E10.22 Type 1 diabetes mellitus with diabetic chronic kidney disease; N18.6 End stage renal disease; K31.84 Gastroparesis; E10.43 Type 1 diabetes mellitus with diabetic autonomic (poly)neuropathy; E87.5 Hyperkalemia; E10.65 Type 1 diabetes mellitus with hyperglycemia; I50.9 Heart failure, unspecified; I13.2 Hypertensive heart and chronic kidney disease with heart failure and with stage 5 chronic kidney disease, or end stage renal disease; N76.0 Acute vaginitis; B96.89 Other specified bacterial agents as the cause of diseases classified elsewhere; D63.1 Anemia in chronic kidney disease; F43.22 Adjustment disorder with anxiety; E03.9 Hypothyroidism, unspecified; B00.9 Herpesviral infection, unspecified; E78.00 Pure hypercholesterolemia, unspecified; G89.29 Other chronic pain; I52 Other heart disorders in diseases classified elsewhere; M54.5 Low back pain; J45.909 Unspecified asthma, uncomplicated; Z79.4 Long term (current) use of insulin; Z99.2 Dependence on renal dialysis; L29.9 Pruritus, unspecified; Z76.5 Malingerer [conscious simulation]; Z79.891 Long term (current) use of opiate analgesic; Z87.01 Personal history of pneumonia (recurrent); Z95.5 Presence of coronary angioplasty implant and graft

== ENCOUNTER 2017-07-04 10:40 | Observation (INO) | payer MEDICAID ==
[2017-07-04 10:40] VITALS: BMI 25.6
[2017-07-04 12:40] LABS: BASO # 0.1 K/uL (0.0-0.2); BASO % 1.4 % (0.0-2.0); EOS # 0.7 K/uL (0.0-0.7); EOS % 11.4 % (0.0-4.0); HEMATOCRIT 29.3 % (34.0-47.0); LYMPH # 1.1 K/uL (1.0-4.3); LYMPH % 16.9 % (20.0-40.0); MEAN CELL VOLUME 93.1 fL (81.0-99.0); MEAN CORPUSCULAR HEMOGLOBIN 30.8 pg (27.0-31.0); MEAN CORPUSCULAR HGB CONC 33.1 g/dL (33.0-37.0); MEAN PLATELET VOLUME 7.5 fL (7.2-11.7); MONO # 0.6 K/uL (0.0-0.8); RED CELL DISTRIBUTION WIDTH 15.3 % (11.5-14.5); WHITE BLOOD COUNT 6.5 K/uL (4.8-10.8)
--- NOTE | 2017-07-04 12:47 | C.PDOC ---
History Of Present Illness 31 y/o female, with PMHx of ESRD on hemodialysis, presents to ED requesting to be dialyzed today. Pt states that she will not be able to get her dialysis tomorrow because of the holiday, and does not want to wait until Sunday for her dialysis due to sob. Notes having dialysis yesterday. Pt admits to not taking her HTN medication. Denies chest pain, or any other complaints. Time Seen by Provider: 07/04/17 10:56 Chief Complaint (Nursing): Shortness Of Breath History Per: Patient History/Exam Limitations: no limitations Onset/Duration Of Symptoms: Gradual Current Symptoms Are (Timing): Still Present Severity: Mild Past Medical History Reviewed: Historical Data, Nursing Documentation, Vital Signs Vital Signs: Last Vital Signs Temp 98.0 F 07/04/17 10:44 Pulse 87 07/04/17 10:44 Resp 20 07/04/17 10:50 BP 199/91 H 07/04/17 12:20 Pulse Ox 99 07/04/17 14:26 - Medical History PMH: Anemia, Anxiety, Asthma, Bronchitis, CHF, Diabetes, Fractures (Sep 2012 L foot), Gastritis, Gastrointestinal Ulcer (gastroparesis), Gall Bladder Disease ( gallbladder removed), Hepatitis, HTN, Hypercholesterolemia, Hyperthyroidism, Hypothyroidism, Kidney Stones, Pancreatitis (chronic), Peripheral Edema, Pneumonia, End Stage Renal Disease, Chronic Kidney Disease, Seizures, Sleep Apnea, Chronic Pain Surgical History: Cholecystectomy, Coronary Stent - [facility] Procedures (06/17/17) ASSISTANCE WITH RESPIRATORY VENTILATION, 24-96 HRS, CPAP (11/27/16) CAUTERY TO STOP EPISTAX (03/22/14) CENTRAL VENOUS CATHETER PLACEMENT WITH GUIDANCE (11/06/14) DIALYSIS ARTERIOVENOSTOM (01/10/14) DRAINAGE OF RIGHT FOOT SKIN, EXTERNAL APPROACH (07/17/16) DRAINAGE OF RIGHT LOWER ARM SKIN, EXTERNAL APPROACH (05/25/16) ESOPHAGOGASTRODUODENOSCOPY [EGD] W/CLOSED BIOPSY (03/03/14) EXCISION OF STOMACH, ENDO, DIAGN (05/09/16) EXTIRPATE MATTER FROM R LOW ARM SUBCU/FASCIA, PERC (05/25/16) EXTRACTION OF RIGHT FOOT SKIN, EXTERNAL APPROACH (05/25/16) EXTRACTION OF TOE NAIL, EXTERNAL APPROACH (05/30/17) FLEXIBLE SIGMOIDOSCOPY (10/26/14) FLUOROSCOPY OF R JUGULAR VEIN USING L OSM CONTRAST, GUIDANCE (12/13/15) FLUOROSCOPY OF RIGHT SUBCLAVIAN VEIN, GUIDANCE (08/07/16) HEMODIALYSIS (04/05/15) INJECT INSULIN (12/23/12) INJECT/INFUSE ELECTROLYT (12/23/12) INJECT/INFUSE NEC (01/17/15) INSERT INFUSION DEV IN R INT JUGULAR VEIN, PERC (02/23/16) INSERTION OF INFUSION DEV INTO R BASILIC VEIN, PERC APPROACH (04/18/16) INSERTION OF INFUSION DEV INTO R BRACH VEIN, PERC APPROACH (02/19/17) INSERTION OF INFUSION DEV INTO R SUBCLAV VEIN, PERC APPROACH (08/29/16) INSERTION OF INFUSION DEV INTO SUP VENA CAVA, PERC APPROACH (05/25/16) INSERTION OF INFUSION DEVICE INTO R ATRIUM, PERC APPROACH (12/13/15) INSERTION OF VAD INTO CHEST SUBCU/FASCIA, OPEN APPROACH (12/13/15) MEASURE OF CARDIAC SAMPL & PRESSURE, L HEART, PERC APPROACH (10/09/16) OTHER ENDOSCOPY OF SM INTEST (08/25/14) PACKED CELL TRANSFUSION (10/26/14) PERFORMANCE OF URINARY FILTRATION, MULTIPLE (03/19/17) PERFORMANCE OF URINARY FILTRATION, SINGLE (11/27/16) PLAIN RADIOGRAPHY OF LEFT HEART USING OTHER CONTRAST (10/09/16) PLAIN RADIOGRAPHY OF MULT COR ART USING OTH CONTRAST (10/09/16) PLICATION OF VENA CAVA (03/22/14) POST NASAL PAC FOR EPIST (03/22/14) REMOVAL OF VAD FROM TRUNK SUBCU/FASCIA, OPEN APPROACH (02/23/16) [facility] (03/03/14) THERAPEUTIC ERYTHROCYTAPHERESIS (10/26/14) TRANSFUSE NONAUT RED BLOOD CELLS IN PERIPH VEIN, PERC (02/19/17) ULTRASONOGRAPHY OF RIGHT AND LEFT HEART, TRANSESOPHAGEAL (02/19/17) ULTRASONOGRAPHY OF RIGHT SUBCLAVIAN VEIN, GUIDANCE (08/29/16) ULTRASONOGRAPHY OF RIGHT UPPER EXTREMITY VEINS, GUIDANCE (02/19/17) VACCINATION NEC (10/26/14) VENOUS CATHETERIZATION FOR RENAL DIALYSIS (03/03/14) Family History: States: Unknown Family Hx - Social History Hx Tobacco Use: No Hx Alcohol Use: No Hx Substance Use: No - Immunization History Hx Tetanus Toxoid Vaccination: No Hx Influenza Vaccination: Yes Hx Pneumococcal Vaccination: Yes Review Of Systems Except As Marked, All Systems Reviewed And Found Negative. Constitutional: Negative for: Fever, Chills Cardiovascular: Negative for: Chest Pain, Palpitations Respiratory: Positive for: Shortness of Breath Physical Exam - Physical Exam Appears: Non-toxic, No Acute Distress Skin: Normal Color, Warm, Dry Head: Atraumatic, Normacephalic Eye(s): bilateral: Normal Inspection Oral Mucosa: Moist Neck: Supple Chest: Symmetrical Cardiovascular: Rhythm Regular, No Murmur Respiratory: Normal Breath Sounds, No Rales, No Rhonchi, No Wheezing Gastrointestinal/Abdominal: Soft, No Tenderness Extremity: Normal ROM Neurological/Psych: Oriented x3, Normal Speech ED Course And Treatment - Laboratory Results Result Diagrams: 07/04/17 12:34 07/04/17 12:34 Lab Interpretation: Abnormal O2 Sat by Pulse Oximetry: 99 Pulse Ox Interpretation: Normal Progress Note: Blood work ordered and reviewed. Patient was given Catapres. Case discussed with Dr. Edilia Sexton, and Dr. Phillips who agrees upon admission. Treated with clonidine 0.3 mg PO for elevated B/P. On re-evaluation in no distress. waiting for dialysis Reassessment Condition: Unchanged Disposition Discussed With Dr.: Kim Sexton Doctor Will See Patient In The: Hospital - Disposition Disposition: HOSPITALIZED Disposition Time: 13:25 Condition: STABLE - POA Present On Arrival: None - Clinical Impression Clinical Impression: Hypertension, ESRD (end stage renal disease) on dialysis, Diabetes - PA / BOOT TURNER / Resident Statement MD/DO has reviewed & agrees with the documentation as recorded. - Scribe Statement The provider has reviewed the documentation as recorded by the Scribjoan Sexton All medical record entries made by the Arun were at my direction and personally dictated by me. I have reviewed the chart and agree that the record accurately reflects my personal performance of the history, physical exam, medical decision making, and the department course for this patient. I have also personally directed, reviewed, and agree with the discharge instructions and disposition.
[2017-07-04 12:56] LABS: ALB/GLOB RATIO 1.3 (1.0-2.1); BILIRUBIN,TOTAL 0.7 mg/dL (0.2-1.3); CALCIUM 7.7 mg/dl (8.6-10.4); TOTAL PROTEIN 7.5 g/dL (6.3-8.3)
--- NOTE | 2017-07-04 19:11 | CP.PCM.HP ---
Past Patient History - Infectious Disease Hx of Infectious Diseases: None - Tetanus Immunizations Tetanus Immunization: Unknown - Past Medical History & Family History Past Medical History?: Yes - Past Social History Smoking Status: Never Smoked - CARDIAC Hx Congestive Heart Failure: Yes Hx Hypercholesterolemia: Yes Hx Hypertension: Yes Hx Peripheral Edema: Yes - PULMONARY Hx Asthma: Yes Hx Bronchitis: Yes Hx Pneumonia: Yes Hx Sleep Apnea: Yes - NEUROLOGICAL Hx Seizures: Yes - HEENT Hx HEENT Problems: Yes Hx Cataracts: Yes Hx Glaucoma: Yes - RENAL Hx Chronic Kidney Disease: Yes Hx Kidney Stones: Yes - ENDOCRINE/METABOLIC Hx Hyperthyroidism: Yes Hx Hypothyroidism: Yes - HEMATOLOGICAL/ONCOLOGICAL Hx Anemia: Yes - INTEGUMENTARY Hx Dermatological Problems: Yes Other/Comment: DRY ITCHY SKIN ;multiple/generalized dark spots on skin. left toe blister - MUSCULOSKELETAL/RHEUMATOLOGICAL Hx Fractures: Yes (Sep 2012 L foot) - GASTROINTESTINAL Hx Gall Bladder Disease: Yes (gallbladder removed) Hx Gastritis: Yes Hx Pancreatitis: Yes (chronic) - PSYCHIATRIC Hx Anxiety: Yes Hx Substance Use: No - SURGICAL HISTORY Hx Cholecystectomy: Yes Hx Coronary Stent: Yes - ANESTHESIA Hx Anesthesia: Yes Hx Anesthesia Reactions: No Hx Malignant Hyperthermia: No Meds Allergies/Adverse Reactions: Allergies Allergy/AdvReac Type Severity Reaction Status Date / Time ketorolac tromethamine Allergy RASH Verified 07/04/17 10:50 [From Toradol] latex Allergy RASH Verified 07/04/17 10:50 morphine Allergy RASH Verified 07/04/17 10:50 tramadol Allergy RASH Verified 07/04/17 10:50 Physical Exam - Constitutional Appears: Well - Head Exam Head Exam: ATRAUMATIC, NORMAL INSPECTION, NORMOCEPHALIC - Eye Exam Eye Exam: EOMI, Normal appearance, PERRL Pupil Exam: NORMAL ACCOMODATION, PERRL - ENT Exam ENT Exam: Mucous Membranes Moist, Normal Exam - Neck Exam Neck exam: Positive for: Normal Inspection - Respiratory Exam Respiratory Exam: Decreased Breath Sounds - Cardiovascular Exam Cardiovascular Exam: REGULAR RHYTHM, +S1, +S2 - GI/Abdominal Exam GI & Abdominal Exam: Diminished Bowel Sounds, Soft - Rectal Exam Rectal Exam: Deferred Results - Vital Signs Recent Vital Signs: Last Vital Signs Temp 98.0 F 07/04/17 17:32 Pulse 110 H 07/04/17 17:32 Resp 20 07/04/17 17:32 BP 166/80 H 07/04/17 17:32 Pulse Ox 100 07/04/17 17:32 - Labs Result Diagrams: 07/04/17 12:34 07/04/17 12:34 Labs: Laboratory Results - last 24 hr 07/04/17 07/04/17 12:34 12:34 WBC 6.5 RBC 3.15 L Hgb 9.7 L Hct 29.3 L MCV 93.1 MCH 30.8 MCHC 33.1 RDW 15.3 H Plt Count 313 D MPV 7.5 Neut % (Auto) 60.3 Lymph % (Auto) 16.9 L Mcculloch % (Auto) 10.0 Eos % (Auto) 11.4 H Baso % (Auto) 1.4 Neut # 3.9 Lymph # 1.1 Mcculloch # 0.6 Eos # 0.7 Baso # 0.1 Sodium 132 Potassium 4.0 Chloride 89 L Carbon Dioxide 29 Anion Gap 19 BUN 58 H Creatinine 5.9 H Est GFR ( Amer) 10 Est GFR (Non-Af Amer) 8 Random Glucose 301 H Calcium 7.7 L Total Bilirubin 0.7 AST 27 ALT 29 Alkaline Phosphatase 161 H D Total Protein 7.5 Albumin 4.3 Globulin 3.3 Albumin/Globulin Ratio 1.3
[2017-07-04] MEDS ORDERED: DiphenhydrAMINE 50 mg/ml Inj IVP STA ×2 (19:23→21:59)
[2017-07-04] MEDS ORDERED: FENTANYL 12 MCG/HR TD SCH (20:30)
[2017-07-04] MEDS: Insulin Detemir 100 units/ml Vial (Levemir) SC SCH (22:44)
[2017-07-04 22:52] VITALS: RESP 20
[2017-07-04] MEDS: DiphenhydrAMINE 50 mg/ml Inj IVP PRN (23:00)
[2017-07-05] MEDS: DiphenhydrAMINE 50 mg/ml Inj IVP PRN ×2 (03:04→07:07)
[2017-07-05] MEDS ORDERED: (Novolog) Insulin Aspart, Recombinant 100 u/ml 10 ml vial SC SCH ×2 (07:30)
[2017-07-05] MEDS ORDERED: Multivitamin Vitamin B Complex (Nephro-Vite) Tab PO SCH (08:00)
[2017-07-05 08:38] VITALS: BP 136/90; PULSE 84; TEMP 98.1; O2SAT 95
[2017-07-05] MEDS: Insulin Detemir 100 units/ml Vial (Levemir) SC SCH (09:49)
[2017-07-05] MEDS ORDERED: NIFEdipine 60 mg ER Tab PO SCH (10:00)
[2017-07-05] MEDS ORDERED: Pantoprazole 40 mg EC Tab PO SCH (10:00)
[2017-07-05] MEDS ORDERED: Ferric Sodium Gluconat Complex 62.5 mg/5 ml Vial IVPB SCH (10:00)
== END 2017-07-05 10:00 | disposition home or self-care (01) ==
LOC: C.ER 10:40 → C.9E 12:57 → C.3T 13:21
PROVIDERS: ADMIT Internal Medicine Nephrology; ATTEND Internal Medicine Nephrology
DX: I13.2 Hypertensive heart and chronic kidney disease with heart failure and with stage 5 chronic kidney disease, or end stage renal disease (principal); N18.6 End stage renal disease; E11.22 Type 2 diabetes mellitus with diabetic chronic kidney disease; E11.43 Type 2 diabetes mellitus with diabetic autonomic (poly)neuropathy; E78.00 Pure hypercholesterolemia, unspecified; E03.9 Hypothyroidism, unspecified; H40.9 Unspecified glaucoma; G47.30 Sleep apnea, unspecified; J45.909 Unspecified asthma, uncomplicated; K31.84 Gastroparesis; K86.1 Other chronic pancreatitis; Z87.01 Personal history of pneumonia (recurrent); I50.9 Heart failure, unspecified; Z87.11 Personal history of peptic ulcer disease; Z87.442 Personal history of urinary calculi; Z90.49 Acquired absence of other specified parts of digestive tract; Z99.2 Dependence on renal dialysis
CPT/HCPCS: 80053; 82948; 85025; 96374; 99285; G0257; G0378; J1170; J1200

== ENCOUNTER 2017-07-12 07:34 | Inpatient (IN) | payer MEDICAID ==
[2017-07-12 07:35] VITALS: BMI 25.6
[2017-07-12] MEDS ORDERED: HYDROmorphone 1 mg/ml ISec IM STA (07:55)
[2017-07-12] MEDS ORDERED: DiphenhydrAMINE 50 mg/ml Inj IM STA (07:56)
[2017-07-12] MEDS ORDERED: DiphenhydrAMINE 12.5 mg/5 ml LIQ UD (5 ml) ONE (08:01)
[2017-07-12] MEDS ORDERED: DiphenhydrAMINE 50 mg/ml Inj ONE ×4 (08:04→13:05)
[2017-07-12] MEDS ORDERED: HYDROmorphone 1 mg/ml ISec ONE (08:13)
[2017-07-12 08:36] LABS: BASO # 0.1 K/uL (0.0-0.2); BASO % 1.1 % (0.0-2.0); EOS # 0.6 K/uL (0.0-0.7); EOS % 8.3 % (0.0-4.0); HEMATOCRIT 31.9 % (34.0-47.0); LYMPH # 1.1 K/uL (1.0-4.3); LYMPH % 14.3 % (20.0-40.0); MEAN CELL VOLUME 93.4 fL (81.0-99.0); MEAN CORPUSCULAR HEMOGLOBIN 31.3 pg (27.0-31.0); MEAN CORPUSCULAR HGB CONC 33.5 g/dL (33.0-37.0); MEAN PLATELET VOLUME 7.8 fL (7.2-11.7); MONO # 0.7 K/uL (0.0-0.8); MONO % 8.5 % (0.0-10.0); NRBC % 0.3 % (0.0-2.0); RED CELL DISTRIBUTION WIDTH 15.6 % (11.5-14.5); WHITE BLOOD COUNT 7.7 K/uL (4.8-10.8)
[2017-07-12] MEDS ORDERED: HYDROmorphone 1 mg/ml ISec IVP STA ×3 (08:44→13:00)
[2017-07-12] MEDS ORDERED: DiphenhydrAMINE 50 mg/ml Inj IVP STA ×3 (08:45→13:01)
[2017-07-12 09:06] LABS: ALB/GLOB RATIO 1.2 (1.0-2.1); ALKALINE PHOSPHATASE 182 U/L (38-126); ALT/SGPT 30 U/L (9-52); AST/SGOT 22 U/L (14-36); BLOOD UREA NITROGEN 32 mg/dL (7-17); CALCIUM 7.9 mg/dl (8.6-10.4); CARBON DIOXIDE 24 mmol/L (22-30); CHLORIDE 93 mmol/L (98-107); GFR AFRICAN-AMERICAN 17; GLUCOSE,RANDOM 287 mg/dL (65-105); POTASSIUM 3.8 mmol/L (3.6-5.2); SODIUM 138 mmol/L (132-148); TOTAL PROTEIN 8.2 g/dL (6.3-8.3)
--- NOTE | 2017-07-12 10:23 | C.PDOC ---
History Of Present Illness Patient BIBA for upper abdominal pain, nausea and vomiting since this morning. She states the pain radiates up into her chest, and admits symptoms feel similar to prior episodes of gastroparesis. Last hemodialysis was yesterday. Patient denies SOB, chest pain, fever, cough. Time Seen by Provider: 07/12/17 07:37 Chief Complaint (Nursing): Abdominal Pain History Per: Patient History/Exam Limitations: no limitations Onset/Duration Of Symptoms: Hrs Current Symptoms Are (Timing): Still Present Severity: Severe Location Of Pain/Discomfort: Epigastric Quality Of Discomfort: "Pain" Associated Symptoms: Nausea, Vomiting. denies: Fever, Chills Past Medical History Reviewed: Historical Data, Nursing Documentation, Vital Signs Vital Signs: Last Vital Signs Temp 97.6 F 07/18/17 12:10 Pulse 91 H 07/18/17 12:36 Resp 18 07/18/17 12:36 BP 152/89 H 07/18/17 12:36 Pulse Ox 100 07/18/17 12:36 - Medical History PMH: Anemia, Anxiety, Asthma, Bronchitis, CHF, Diabetes, Fractures (Sep 2012 L foot), Gastritis, Gastrointestinal Ulcer (gastroparesis), Gall Bladder Disease ( gallbladder removed), Hepatitis, HTN, Hypercholesterolemia, Hyperthyroidism, Hypothyroidism, Kidney Stones, Pancreatitis (chronic), Peripheral Edema, Pneumonia, End Stage Renal Disease, Chronic Kidney Disease, Seizures, Sleep Apnea, Chronic Pain Surgical History: Cholecystectomy, Coronary Stent - [facility] Procedures (06/17/17) ASSISTANCE WITH RESPIRATORY VENTILATION, 24-96 HRS, CPAP (11/27/16) CAUTERY TO STOP EPISTAX (03/22/14) CENTRAL VENOUS CATHETER PLACEMENT WITH GUIDANCE (11/06/14) DIALYSIS ARTERIOVENOSTOM (01/10/14) DRAINAGE OF RIGHT FOOT SKIN, EXTERNAL APPROACH (07/17/16) DRAINAGE OF RIGHT LOWER ARM SKIN, EXTERNAL APPROACH (05/25/16) ESOPHAGOGASTRODUODENOSCOPY [EGD] W/CLOSED BIOPSY (03/03/14) EXCISION OF STOMACH, ENDO, DIAGN (05/09/16) EXTIRPATE MATTER FROM R LOW ARM SUBCU/FASCIA, PERC (05/25/16) EXTRACTION OF RIGHT FOOT SKIN, EXTERNAL APPROACH (05/25/16) EXTRACTION OF TOE NAIL, EXTERNAL APPROACH (05/30/17) FLEXIBLE SIGMOIDOSCOPY (10/26/14) FLUOROSCOPY OF R JUGULAR VEIN USING L OSM CONTRAST, GUIDANCE (12/13/15) FLUOROSCOPY OF RIGHT SUBCLAVIAN VEIN, GUIDANCE (08/07/16) HEMODIALYSIS (04/05/15) INJECT INSULIN (12/23/12) INJECT/INFUSE ELECTROLYT (12/23/12) INJECT/INFUSE NEC (01/17/15) INSERT INFUSION DEV IN R INT JUGULAR VEIN, PERC (02/23/16) INSERTION OF INFUSION DEV INTO R BASILIC VEIN, PERC APPROACH (04/18/16) INSERTION OF INFUSION DEV INTO R BRACH VEIN, PERC APPROACH (02/19/17) INSERTION OF INFUSION DEV INTO R SUBCLAV VEIN, PERC APPROACH (08/29/16) INSERTION OF INFUSION DEV INTO SUP VENA CAVA, PERC APPROACH (05/25/16) INSERTION OF INFUSION DEVICE INTO R ATRIUM, PERC APPROACH (12/13/15) INSERTION OF VAD INTO CHEST SUBCU/FASCIA, OPEN APPROACH (12/13/15) MEASURE OF CARDIAC SAMPL & PRESSURE, L HEART, PERC APPROACH (10/09/16) OTHER ENDOSCOPY OF SM INTEST (08/25/14) PACKED CELL TRANSFUSION (10/26/14) PERFORMANCE OF URINARY FILTRATION, MULTIPLE (03/19/17) PERFORMANCE OF URINARY FILTRATION, SINGLE (11/27/16) PLAIN RADIOGRAPHY OF LEFT HEART USING OTHER CONTRAST (10/09/16) PLAIN RADIOGRAPHY OF MULT COR ART USING OTH CONTRAST (10/09/16) PLICATION OF VENA CAVA (03/22/14) POST NASAL PAC FOR EPIST (03/22/14) REMOVAL OF VAD FROM TRUNK SUBCU/FASCIA, OPEN APPROACH (02/23/16) [facility] (03/03/14) THERAPEUTIC ERYTHROCYTAPHERESIS (10/26/14) TRANSFUSE NONAUT RED BLOOD CELLS IN PERIPH VEIN, PERC (02/19/17) ULTRASONOGRAPHY OF RIGHT AND LEFT HEART, TRANSESOPHAGEAL (02/19/17) ULTRASONOGRAPHY OF RIGHT SUBCLAVIAN VEIN, GUIDANCE (08/29/16) ULTRASONOGRAPHY OF RIGHT UPPER EXTREMITY VEINS, GUIDANCE (02/19/17) VACCINATION NEC (10/26/14) VENOUS CATHETERIZATION FOR RENAL DIALYSIS (03/03/14) Family History: States: No Known Family Hx - Social History Hx Tobacco Use: No Hx Alcohol Use: No Hx Substance Use: No - Immunization History Hx Tetanus Toxoid Vaccination: No Hx Influenza Vaccination: Yes Hx Pneumococcal Vaccination: Yes Review Of Systems Except As Marked, All Systems Reviewed And Found Negative. Constitutional: Negative for: Fever, Chills Cardiovascular: Negative for: Chest Pain, Palpitations Respiratory: Negative for: Cough, Shortness of Breath Gastrointestinal: Positive for: Nausea, Vomiting, Abdominal Pain. Negative for : Diarrhea Skin: Negative for: Rash Physical Exam - Physical Exam Appears: Well, Non-toxic, In Acute Distress (in moderate to severe pain, vomiting ) Skin: Warm, Dry Oral Mucosa: Moist Cardiovascular: Rhythm Regular (tachycardic ) Respiratory: Normal Breath Sounds, No Rales, No Rhonchi, No Wheezing Gastrointestinal/Abdominal: Bowel Sounds, Soft, Tenderness (epiagastric TTP), No Distention, No Guarding, No Rebound Pelvic: Normal External Exam, Normal Bimanual Exam, Vaginal Discharge (thick white discharge, yeast vs BV), No Cervical Motion Tenderness, No Adnexal Tenderness Neurological/Psych: Oriented x3 ED Course And Treatment - Laboratory Results Result Diagrams: 07/16/17 14:16 07/16/17 14:16 ECG: Interpreted By Me, Viewed By Me (sinus tachycardia 101 bpm, left axis deviation, LVH, T wave inversions I, aVL, no acute ST changes) ECG Interpretation: No Acute Changes O2 Sat by Pulse Oximetry: 99 (RA) Pulse Ox Interpretation: Normal Progress Note: Blood work, EKG ordered and reviewed. IV dilaudid + benadryl (x multiple doses), IV zofran given. 12:40- Patient c/o itchy, thick white vaginal discharge, has tried OTC monitsat without relief. Denies possibility of STDs, no sexual partners since 2008. Pelvic exam done - supect ammon vs bacterial vaginosis. Will give 1 dose diflucan & flagyl in ED, and recommend Flagyl 500mg pO BID x 7 days. 13:30- PO Clonidine given for HTN not that patient is tolerating PO. Reevaluation Time: 10:00 Reassessment Condition: Improved (Patient only minimally improved, still c/o significant abdominal pain and nausea.) - Physician Consult Information Physician Contacted: Kim Sexton Outcome Of Conversation: Discussed patient with PMD, agrees with admission to his service for intractable abdominal pain, nausea/vomiting, gastroparesis, uncontrolled HTN, ESRD On HD. Critical Care Time - Critical Care Note Total Time (in mins): 35 Documented critical care: time excludes all time spent performing seperately billable procedures. Disposition - Disposition Disposition Time: 10:08 Condition: FAIR - Clinical Impression Clinical Impression: Intractable abdominal pain, Gastroparesis, Vomiting, Nausea, Uncontrolled hypertension, ESRD (end stage renal disease) on dialysis, Vulvovaginal candidiasis Decision To Admit - Pt Status Changed To: Hospital Disposition Of: Inpatient - Admit Certification Admit to Inpatient:: After my assessment, the patient will require hospitalization for at least two midnights. This is because of the severity of symptoms shown, intensity of services needed, and/or the medical risk in this patient being treated as an outpatient. - InPatient: Physician Admission Certification:: see notes - . Bed Request Type: Telemetry Admitting Physician: Kim Sexton Patient Diagnosis: Intractable abdominal pain, Gastroparesis, Vomiting, Nausea, Uncontrolled hypertension, ESRD (end stage renal disease) on dialysis, Vulvovaginal candidiasis
[2017-07-12] MEDS: DiphenhydrAMINE 50 mg/ml Inj IVP PRN ×2 (16:43→21:15)
[2017-07-12] MEDS: NIFEdipine 60 mg ER Tab PO SCH (17:02)
[2017-07-12] MEDS: (Novolog) Insulin Aspart, Recombinant 100 u/ml 10 ml vial SC SCH ×2 (17:54→21:06)
--- NOTE | 2017-07-12 18:46 | CP.PCM.CON ---
History of Present Illness - History of Present Illness History of Present Illness: RESONS FOR CONSULT : ESRD ON HD W ANEMIA OF CKD PT IS WELL KNOWN TO US .. ON HD M W F .. MULTIPLE ADMISSIONS Patient BIBA for upper abdominal pain, nausea and vomiting this morning. Pain radiates up into chest, and feels similar to prior episodes of gastroparesis. Last dialysis was yesterday. She denies SOB, chest pain, feverm cough. Time Seen by Provider: 07/12/17 07:37 Chief Complaint (Nursing): Abdominal Pain History Per: Patient History/Exam Limitations: no limitations Onset/Duration Of Symptoms: Hrs Current Symptoms Are (Timing): Still Present Severity: Moderate Location Of Pain/Discomfort: Epigastric Quality Of Discomfort: "Pain" Associated Symptoms: Nausea, Vomiting. denies: Fever, Chills Past Medical History Reviewed: Historical Data, Nursing Documentation, Vital Signs Vital Signs: Last Vital Signs Temp Pulse 111 H 07/12/17 11:37 Resp 9 L 07/12/17 11:37 BP 185/119 H 07/12/17 11:37 Pulse Ox 100 07/12/17 11:37 - Medical History PMH: Anemia, Anxiety, Asthma, Bronchitis, CHF, Diabetes, Fractures (Sep 2012 L foot), Gastritis, Gastrointestinal Ulcer (gastroparesis), Gall Bladder Disease ( gallbladder removed), Hepatitis, HTN, Hypercholesterolemia, Hyperthyroidism, Hypothyroidism, Kidney Stones, Pancreatitis (chronic), Peripheral Edema, Pneumonia, End Stage Renal Disease, Chronic Kidney Disease, Seizures, Sleep Apnea, Chronic Pain Surgical History: Cholecystectomy, Coronary Stent Past Patient History - Infectious Disease Hx of Infectious Diseases: None - Tetanus Immunizations Tetanus Immunization: Unknown - Past Medical History & Family History Past Medical History?: Yes - Past Social History Smoking Status: Never Smoked - CARDIAC Hx Congestive Heart Failure: Yes Hx Hypercholesterolemia: Yes Hx Hypertension: Yes Hx Peripheral Edema: Yes - PULMONARY Hx Asthma: Yes Hx Bronchitis: Yes Hx Pneumonia: Yes Hx Sleep Apnea: Yes - NEUROLOGICAL Hx Seizures: Yes - HEENT Hx HEENT Problems: Yes Hx Cataracts: Yes Hx Glaucoma: Yes - RENAL Hx Chronic Kidney Disease: Yes Hx Kidney Stones: Yes - ENDOCRINE/METABOLIC Hx Hyperthyroidism: Yes Hx Hypothyroidism: Yes - HEMATOLOGICAL/ONCOLOGICAL Hx Anemia: Yes - INTEGUMENTARY Hx Dermatological Problems: Yes Other/Comment: DRY ITCHY SKIN ;multiple/generalized dark spots on skin. left toe blister - MUSCULOSKELETAL/RHEUMATOLOGICAL Hx Fractures: Yes (Sep 2012 L foot) - GASTROINTESTINAL Hx Gall Bladder Disease: Yes (gallbladder removed) Hx Gastritis: Yes Hx Pancreatitis: Yes (chronic) - PSYCHIATRIC Hx Anxiety: Yes Hx Substance Use: No - SURGICAL HISTORY Hx Cholecystectomy: Yes Hx Coronary Stent: Yes - ANESTHESIA Hx Anesthesia: Yes Hx Anesthesia Reactions: No Hx Malignant Hyperthermia: No Meds Allergies/Adverse Reactions: Allergies Allergy/AdvReac Type Severity Reaction Status Date / Time ketorolac tromethamine Allergy RASH Verified 07/04/17 10:50 [From Toradol] latex Allergy RASH Verified 07/04/17 10:50 morphine Allergy RASH Verified 07/04/17 10:50 tramadol Allergy RASH Verified 07/04/17 10:50 - Medications Medications: Current Medications Clonidine HCl (Catapres) 0.3 mg PO BID [facility] Last Admin: 07/12/17 17:02 Dose: 0.3 mg Diphenhydramine HCl (Benadryl) 25 mg IVP Q4 PRN PRN Reason: Itching / Pruritus Last Admin: 07/12/17 16:43 Dose: 25 mg Heparin Sodium (Porcine) (Heparin) 5,000 units SC Q8 [facility] Hydralazine HCl (Apresoline) 10 mg IVP Q6H PRN PRN Reason: high BP Last Admin: 07/12/17 17:02 Dose: 10 mg Hydromorphone HCl (Dilaudid) 2 mg IVP Q4H PRN PRN Reason: Pain, severe (8-10) Last Admin: 07/12/17 16:46 Dose: 2 mg Insulin Aspart (Novolog) 0 unit SC ACHS [facility] PRN Reason: Protocol Last Admin: 07/12/17 17:54 Dose: 5 unit Nifedipine (Procardia Xl) 60 mg PO BID [facility] Last Admin: 07/12/17 17:02 Dose: 60 mg Pantoprazole Sodium (Protonix Ec Tab) 40 mg PO DAILY [facility] Results - Vital Signs Recent Vital Signs: Last Vital Signs Temp 99.6 F 07/12/17 15:50 Pulse 85 07/12/17 16:42 Resp 18 07/12/17 15:50 BP 205/94 H 07/12/17 16:42 Pulse Ox 94 L 07/12/17 15:50 - Labs Result Diagrams: 07/12/17 08:23 07/12/17 08:23 Labs: Laboratory Results - last 24 hr 07/12/17 07/12/17 07/12/17 08:23 08:23 16:49 WBC 7.7 RBC 3.42 L Hgb 10.7 L Hct 31.9 L MCV 93.4 MCH 31.3 H MCHC 33.5 RDW 15.6 H Plt Count 284 MPV 7.8 Neut % (Auto) 67.8 Lymph % (Auto) 14.3 L [place] % (Auto) 8.5 Eos % (Auto) 8.3 H Baso % (Auto) 1.1 Neut # 5.3 Lymph # 1.1 [place] # 0.7 Eos # 0.6 Baso # 0.1 Sodium 138 Potassium 3.8 Chloride 93 L Carbon Dioxide 24 Anion Gap 25 H BUN 32 H Creatinine 3.8 H Est GFR ( Amer) 17 Est GFR (Non-Af Amer) 14 POC Glucose (mg/dL) 379 H Random Glucose 287 H Calcium 7.9 L Total Bilirubin 1.0 AST 22 ALT 30 Alkaline Phosphatase 182 H Total Protein 8.2 Albumin 4.4 Globulin 3.7 Albumin/Globulin Ratio 1.2 Lipase 100 Beta HCG, Quant < 2.39 Assessment & Plan - Assessment and Plan (Free Text) Assessment: ESRD ON HD M W F .. TO BE C/O ANEMIA OF CKD .. H/H STABLE H/O D GASTROPERESIS MULTIPLE MEDICAL PROBLEMS C/O PRESENT CARE C/O CURRENT MEDS - Date & Time Date: 07/12/17 Time: 15:00
--- NOTE | 2017-07-12 18:57 | CP.PCM.HP ---
Past Patient History - Infectious Disease Hx of Infectious Diseases: None - Tetanus Immunizations Tetanus Immunization: Unknown - Past Medical History & Family History Past Medical History?: Yes - Past Social History Smoking Status: Never Smoked - CARDIAC Hx Congestive Heart Failure: Yes Hx Hypercholesterolemia: Yes Hx Hypertension: Yes Hx Peripheral Edema: Yes - PULMONARY Hx Asthma: Yes Hx Bronchitis: Yes Hx Pneumonia: Yes Hx Sleep Apnea: Yes - NEUROLOGICAL Hx Seizures: Yes - HEENT Hx HEENT Problems: Yes Hx Cataracts: Yes Hx Glaucoma: Yes - RENAL Hx Chronic Kidney Disease: Yes Hx Kidney Stones: Yes - ENDOCRINE/METABOLIC Hx Hyperthyroidism: Yes Hx Hypothyroidism: Yes - HEMATOLOGICAL/ONCOLOGICAL Hx Anemia: Yes - INTEGUMENTARY Hx Dermatological Problems: Yes Other/Comment: DRY ITCHY SKIN ;multiple/generalized dark spots on skin. left toe blister - MUSCULOSKELETAL/RHEUMATOLOGICAL Hx Fractures: Yes (Sep 2012 L foot) - GASTROINTESTINAL Hx Gall Bladder Disease: Yes (gallbladder removed) Hx Gastritis: Yes Hx Pancreatitis: Yes (chronic) - PSYCHIATRIC Hx Anxiety: Yes Hx Substance Use: No - SURGICAL HISTORY Hx Cholecystectomy: Yes Hx Coronary Stent: Yes - ANESTHESIA Hx Anesthesia: Yes Hx Anesthesia Reactions: No Hx Malignant Hyperthermia: No Meds Allergies/Adverse Reactions: Allergies Allergy/AdvReac Type Severity Reaction Status Date / Time ketorolac tromethamine Allergy RASH Verified 07/04/17 10:50 [From Toradol] latex Allergy RASH Verified 07/04/17 10:50 morphine Allergy RASH Verified 07/04/17 10:50 tramadol Allergy RASH Verified 07/04/17 10:50 Physical Exam - Constitutional Appears: Well - Head Exam Head Exam: ATRAUMATIC, NORMAL INSPECTION, NORMOCEPHALIC - Eye Exam Eye Exam: EOMI, Normal appearance, PERRL Pupil Exam: NORMAL ACCOMODATION, PERRL - ENT Exam ENT Exam: Mucous Membranes Moist, Normal Exam - Neck Exam Neck exam: Positive for: Normal Inspection - Respiratory Exam Respiratory Exam: Decreased Breath Sounds - Cardiovascular Exam Cardiovascular Exam: REGULAR RHYTHM, +S1, +S2 - GI/Abdominal Exam GI & Abdominal Exam: Diminished Bowel Sounds, Soft - Rectal Exam Rectal Exam: Deferred Results - Vital Signs Recent Vital Signs: Last Vital Signs Temp 99.6 F 07/12/17 15:50 Pulse 85 07/12/17 16:42 Resp 18 07/12/17 15:50 BP 205/94 H 07/12/17 16:42 Pulse Ox 94 L 07/12/17 15:50 - Labs Result Diagrams: 07/12/17 08:23 07/12/17 08:23 Labs: Laboratory Results - last 24 hr 07/12/17 07/12/17 07/12/17 08:23 08:23 16:49 WBC 7.7 RBC 3.42 L Hgb 10.7 L Hct 31.9 L MCV 93.4 MCH 31.3 H MCHC 33.5 RDW 15.6 H Plt Count 284 MPV 7.8 Neut % (Auto) 67.8 Lymph % (Auto) 14.3 L [place] % (Auto) 8.5 Eos % (Auto) 8.3 H Baso % (Auto) 1.1 Neut # 5.3 Lymph # 1.1 [place] # 0.7 Eos # 0.6 Baso # 0.1 Sodium 138 Potassium 3.8 Chloride 93 L Carbon Dioxide 24 Anion Gap 25 H BUN 32 H Creatinine 3.8 H Est GFR ( Amer) 17 Est GFR (Non-Af Amer) 14 POC Glucose (mg/dL) 379 H Random Glucose 287 H Calcium 7.9 L Total Bilirubin 1.0 AST 22 ALT 30 Alkaline Phosphatase 182 H Total Protein 8.2 Albumin 4.4 Globulin 3.7 Albumin/Globulin Ratio 1.2 Lipase 100 Beta HCG, Quant < 2.39
[2017-07-12] MEDS ORDERED: (Novolog) Insulin Aspart, Recombinant 100 u/ml 10 ml vial SC SCH (22:00)
[2017-07-13] MEDS: DiphenhydrAMINE 50 mg/ml Inj IVP PRN ×6 (01:07→20:39)
[2017-07-13] MEDS: Pantoprazole 40 mg EC Tab PO SCH (09:50)
[2017-07-13] MEDS: NIFEdipine 60 mg ER Tab PO SCH ×2 (09:50→17:30)
[2017-07-13] MEDS: (Novolog) Insulin Aspart, Recombinant 100 u/ml 10 ml vial SC SCH ×4 (09:51→21:32)
[2017-07-13] MEDS ORDERED: DiphenhydrAMINE 50 mg/ml Inj IVP ONE (13:15)
--- NOTE | 2017-07-13 20:02 | CP.PCM.PN ---
Subjective - Date & Time of Evaluation Date of Evaluation: 07/13/17 Time of Evaluation: 12:00 - Subjective Subjective: clinically same Objective - Vital Signs/Intake and Output Vital Signs (last 24 hours): Temp Pulse Resp BP Pulse Ox 97.4 F L 92 H 20 134/86 98 07/13/17 15:07 07/13/17 17:31 07/13/17 15:07 07/13/17 17:31 07/13/17 15:07 Intake and Output: 07/13/17 07/14/17 18:59 06:59 Intake Total 900 Balance 900 - Medications Medications: Current Medications Clonidine HCl (Catapres) 0.3 mg PO BID [facility] Last Admin: 07/13/17 17:30 Dose: 0.3 mg Diphenhydramine HCl (Benadryl) 50 mg IVP Q4 PRN PRN Reason: itchiness Last Admin: 07/13/17 16:28 Dose: 50 mg Heparin Sodium (Porcine) (Heparin) 5,000 units SC Q8 [facility] Last Admin: 07/13/17 14:05 Dose: Not Given Hydralazine HCl (Apresoline) 10 mg IVP Q6H PRN PRN Reason: high BP Last Admin: 07/12/17 17:02 Dose: 10 mg Hydromorphone HCl (Dilaudid) 2 mg IVP Q4H PRN PRN Reason: Pain, severe (8-10) Last Admin: 07/13/17 16:31 Dose: 2 mg Insulin Aspart (Novolog) 0 unit SC ACHS [facility] PRN Reason: Protocol Last Admin: 07/13/17 17:21 Dose: 4 unit Nifedipine (Procardia Xl) 60 mg PO BID [facility] Last Admin: 07/13/17 17:30 Dose: 60 mg Pantoprazole Sodium (Protonix Ec Tab) 40 mg PO DAILY [facility] Last Admin: 07/13/17 09:50 Dose: 40 mg - Labs Labs: 07/12/17 08:23 07/12/17 08:23 - Constitutional Appears: Well - Head Exam Head Exam: ATRAUMATIC, NORMAL INSPECTION, NORMOCEPHALIC - Eye Exam Eye Exam: EOMI, Normal appearance, PERRL Pupil Exam: NORMAL ACCOMODATION, PERRL - ENT Exam ENT Exam: Mucous Membranes Moist, Normal Exam - Neck Exam Neck Exam: Full ROM, Normal Inspection. absent: Lymphadenopathy - Respiratory Exam Respiratory Exam: Decreased Breath Sounds - Cardiovascular Exam Cardiovascular Exam: REGULAR RHYTHM, +S1, +S2 - GI/Abdominal Exam GI & Abdominal Exam: Soft, Diminished Bowel Sounds - Rectal Exam Rectal Exam: Deferred
[2017-07-14] MEDS: DiphenhydrAMINE 50 mg/ml Inj IVP PRN ×6 (00:41→20:28)
[2017-07-14] MEDS: NIFEdipine 60 mg ER Tab PO SCH ×3 (10:12→21:26)
[2017-07-14] MEDS: (Novolog) Insulin Aspart, Recombinant 100 u/ml 10 ml vial SC SCH ×4 (10:12→21:31)
[2017-07-14] MEDS: Pantoprazole 40 mg EC Tab PO SCH (10:12)
--- NOTE | 2017-07-14 10:24 | CARD ---
APPROVED REPORT EKG Measurement Heart [id number] <Conclusion> Sinus tachycardia Voltage criteria for left ventricular hypertrophy T wave abnormality, consider lateral ischemia Abnormal ECG
--- NOTE | 2017-07-14 15:45 | CP.PCM.CON ---
History of Present Illness - History of Present Illness History of Present Illness: Podiatry Consult Note - Dr. Noble 31 year old female patient PMHx anemia, anxiety, asthma, CHF, DM, hepatitis, HTN , hypercholesterolemia, chronic pancreatitis, ESRD seen and evaluated at bedside for painful right 3rd digit. Patient states the tip of her right toe has been mildly tender to palpation for the past few weeks; also concerned about how her 3rd digit is darker than the rest of the foot. Patient denies any trauma to the area. Patient states this discoloration has persisted for over a year now, however states she has not noticed any open wounds/drainage/or pus in that toe. Patient states she follows up with Dr. Noble at his office however has not been able to make her appointments recently. Denies N/V/F/D/C/ SOB/calf pain. Offers no other pedal complaints at this time. Review of Systems - Review of Systems All systems: reviewed and no additional remarkable complaints except (as per HPI ) Past Patient History - Infectious Disease Hx of Infectious Diseases: None - Tetanus Immunizations Tetanus Immunization: Unknown - Past Medical History & Family History Past Medical History?: Yes - Past Social History Smoking Status: Never Smoked - CARDIAC Hx Congestive Heart Failure: Yes Hx Hypercholesterolemia: Yes Hx Hypertension: Yes Hx Peripheral Edema: Yes - PULMONARY Hx Asthma: Yes Hx Bronchitis: Yes Hx Pneumonia: Yes Hx Sleep Apnea: Yes - NEUROLOGICAL Hx Seizures: Yes - HEENT Hx HEENT Problems: Yes Hx Cataracts: Yes Hx Glaucoma: Yes - RENAL Hx Chronic Kidney Disease: Yes Hx Kidney Stones: Yes - ENDOCRINE/METABOLIC Hx Hyperthyroidism: Yes Hx Hypothyroidism: Yes - HEMATOLOGICAL/ONCOLOGICAL Hx Anemia: Yes - INTEGUMENTARY Hx Dermatological Problems: Yes Other/Comment: DRY ITCHY SKIN ;multiple/generalized dark spots on skin. left toe blister - MUSCULOSKELETAL/RHEUMATOLOGICAL Hx Fractures: Yes (Sep 2012 L foot) - GASTROINTESTINAL Hx Gall Bladder Disease: Yes (gallbladder removed) Hx Gastritis: Yes Hx Pancreatitis: Yes (chronic) - PSYCHIATRIC Hx Anxiety: Yes Hx Substance Use: No - SURGICAL HISTORY Hx Cholecystectomy: Yes Hx Coronary Stent: Yes - ANESTHESIA Hx Anesthesia: Yes Hx Anesthesia Reactions: No Hx Malignant Hyperthermia: No Meds Allergies/Adverse Reactions: Allergies Allergy/AdvReac Type Severity Reaction Status Date / Time ketorolac tromethamine Allergy RASH Verified 07/04/17 10:50 [From Toradol] latex Allergy RASH Verified 07/04/17 10:50 morphine Allergy RASH Verified 07/04/17 10:50 tramadol Allergy RASH Verified 07/04/17 10:50 - Medications Medications: Current Medications Clonidine HCl (Catapres) 0.3 mg PO BID [facility] Last Admin: 07/14/17 10:12 Dose: 0.3 mg Diphenhydramine HCl (Benadryl) 50 mg IVP Q4 PRN PRN Reason: itchiness Last Admin: 07/14/17 12:41 Dose: 50 mg Heparin Sodium (Porcine) (Heparin) 5,000 units SC Q8 [facility] Last Admin: 07/14/17 14:18 Dose: 5,000 units Hydralazine HCl (Apresoline) 10 mg IVP Q6H PRN PRN Reason: high BP Last Admin: 07/12/17 17:02 Dose: 10 mg Hydromorphone HCl (Dilaudid) 2 mg IVP Q4H PRN PRN Reason: Pain, severe (8-10) Last Admin: 07/14/17 12:41 Dose: 2 mg Insulin Aspart (Novolog) 0 unit SC ACHS [facility] PRN Reason: Protocol Last Admin: 07/14/17 12:29 Dose: Not Given Nifedipine (Procardia Xl) 60 mg PO BID [facility] Last Admin: 07/14/17 10:12 Dose: 60 mg Pantoprazole Sodium (Protonix Ec Tab) 40 mg PO DAILY [facility] Last Admin: 07/14/17 10:12 Dose: 40 mg Physical Exam - Constitutional Appears: Well, Non-toxic, No Acute Distress - Extremities Exam Additional comments: RLE focused physical exam VASC: DP and PT pulses palpable 2/4. CFT <3 seconds to all digits. Temperature gradient cool to cool. No increase in warmth noted to 3rd digit. No edema noted. NEURO: Gross sensation intact DERM: Hyperpigmented 3rd digit with absent erythema/drainage/purulence/ fluctuance noted. No open lesions noted to 3rd digit. Nails 1-5 appear thickened , elongated, incurvated, with the presence of subungual debris. ORTHO: Tenderness to palpation 3rd digit nail bed. No pain upon ROM 3rd digit. Muscle strength 5/5 for all dorsiflexors, plantarflexors, inverters, and everters. - Neurological Exam Neurological exam: Alert, Oriented x3 - Psychiatric Exam Psychiatric exam: Normal Affect, Normal Mood Results - Vital Signs Recent Vital Signs: Last Vital Signs Temp 97.7 F 07/13/17 23:35 Pulse 73 07/14/17 11:11 Resp 20 07/13/17 23:35 BP 153/90 H 07/13/17 23:35 Pulse Ox 97 07/13/17 23:35 - Labs Result Diagrams: 07/14/17 16:58 07/14/17 16:58 Labs: Laboratory Results - last 24 hr 07/13/17 07/14/17 07/14/17 16:17 00:09 06:43 POC Glucose (mg/dL) 331 H 369 H 285 H Assessment & Plan - Assessment and Plan (Free Text) Assessment: 31 year old female patient with pain in 3rd digit, stable Plan: Patient seen and evaluated Discussed with attending, Dr. Noble Patient afebrile, WBC 5.7 No clinical signs of infection noted at this time Continue to monitor right 3rd digit for any signs of infection Podiatry will continue to follow patient while in house
[2017-07-14] MEDS ORDERED: DiphenhydrAMINE 50 mg/ml Inj IVP STA ×2 (16:50→22:04)
[2017-07-14 17:04] LABS: BASO # 0.1 K/uL (0.0-0.2); EOS # 0.8 K/uL (0.0-0.7); EOS % 13.9 % (0.0-4.0); LYMPH # 1.5 K/uL (1.0-4.3); LYMPH % 26.8 % (20.0-40.0); MEAN CELL VOLUME 95.3 fL (81.0-99.0); MEAN CORPUSCULAR HEMOGLOBIN 31.1 pg (27.0-31.0); MEAN CORPUSCULAR HGB CONC 32.7 g/dL (33.0-37.0); MEAN PLATELET VOLUME 8.4 fL (7.2-11.7); MONO # 0.5 K/uL (0.0-0.8); MONO % 9.3 % (0.0-10.0); NRBC % 0.1 % (0.0-2.0); RED CELL DISTRIBUTION WIDTH 16.9 % (11.5-14.5); WHITE BLOOD COUNT 5.7 K/uL (4.8-10.8)
[2017-07-14 17:20] LABS: CALCIUM 7.7 mg/dl (8.6-10.4); POTASSIUM 4.5 mmol/L (3.6-5.2)
--- NOTE | 2017-07-14 18:35 | CP.PCM.PN ---
Subjective - Date & Time of Evaluation Date of Evaluation: 07/14/17 Time of Evaluation: 11:40 - Subjective Subjective: clinically same Objective - Vital Signs/Intake and Output Vital Signs (last 24 hours): Temp Pulse Resp BP Pulse Ox 97.2 F L 85 18 142/79 100 07/14/17 16:40 07/14/17 18:00 07/14/17 16:40 07/14/17 18:10 07/14/17 16:40 Intake and Output: 07/14/17 07/14/17 06:59 18:59 Intake Total 560 700 Balance 560 700 - Medications Medications: Current Medications Clonidine HCl (Catapres) 0.3 mg PO BID [facility] Last Admin: 07/14/17 10:12 Dose: 0.3 mg Diphenhydramine HCl (Benadryl) 50 mg IVP Q4 PRN PRN Reason: itchiness Last Admin: 07/14/17 16:02 Dose: 50 mg Heparin Sodium (Porcine) (Heparin) 5,000 units SC Q8 [facility] Last Admin: 07/14/17 14:18 Dose: 5,000 units Hydralazine HCl (Apresoline) 10 mg IVP Q6H PRN PRN Reason: high BP Last Admin: 07/12/17 17:02 Dose: 10 mg Hydromorphone HCl (Dilaudid) 2 mg IVP Q4H PRN PRN Reason: Pain, severe (8-10) Last Admin: 07/14/17 16:02 Dose: 2 mg Insulin Aspart (Novolog) 0 unit SC ACHS [facility] PRN Reason: Protocol Last Admin: 07/14/17 12:29 Dose: Not Given Nifedipine (Procardia Xl) 60 mg PO BID [facility] Last Admin: 07/14/17 10:12 Dose: 60 mg Pantoprazole Sodium (Protonix Ec Tab) 40 mg PO DAILY [facility] Last Admin: 07/14/17 10:12 Dose: 40 mg - Labs Labs: 07/14/17 16:58 07/14/17 16:58
--- NOTE | 2017-07-14 23:32 | CP.PCM.PN ---
Subjective - Date & Time of Evaluation Date of Evaluation: 07/14/17 Time of Evaluation: 14:00 - Subjective Subjective: SEEN ON RENAL F/U ASKING FOR EXTRA HD TODAY SAT .. WILL DO THAT FEELS IMPROVED Objective - Vital Signs/Intake and Output Vital Signs (last 24 hours): Temp Pulse Resp BP Pulse Ox 97.3 F L 79 18 116/79 100 07/14/17 19:40 07/14/17 19:40 07/14/17 19:40 07/14/17 19:10 07/14/17 19:40 Intake and Output: 07/14/17 07/15/17 18:59 06:59 Intake Total 700 290 Output Total 0 Balance 700 290 - Medications Medications: Current Medications Clonidine HCl (Catapres) 0.3 mg PO BID [facility] Last Admin: 07/14/17 21:25 Dose: 0.3 mg Diphenhydramine HCl (Benadryl) 50 mg IVP Q4 PRN PRN Reason: itchiness Last Admin: 07/14/17 20:28 Dose: 50 mg Heparin Sodium (Porcine) (Heparin) 5,000 units SC Q8 [facility] Last Admin: 07/14/17 21:08 Dose: Not Given Hydralazine HCl (Apresoline) 10 mg IVP Q6H PRN PRN Reason: high BP Last Admin: 07/12/17 17:02 Dose: 10 mg Hydromorphone HCl (Dilaudid) 2 mg IVP Q4H PRN PRN Reason: Pain, severe (8-10) Last Admin: 07/14/17 20:37 Dose: 2 mg Insulin Aspart (Novolog) 0 unit SC ACHS [facility] PRN Reason: Protocol Last Admin: 07/14/17 21:31 Dose: Not Given Nifedipine (Procardia Xl) 60 mg PO BID [facility] Last Admin: 07/14/17 21:26 Dose: 60 mg Pantoprazole Sodium (Protonix Ec Tab) 40 mg PO DAILY [facility] Last Admin: 07/14/17 10:12 Dose: 40 mg - Labs Labs: 07/14/17 16:58 07/14/17 16:58 Assessment and Plan - Assessment and Plan (Free Text) Assessment: ESRD ON HD M W F AND SAT ANEMIA OF CKD ,, H/H STABLE MMP P : C/O CURRENT CARE C/O PRESENT MANAGEMENT
[2017-07-14] MEDS ORDERED: Ergocalciferol 50,000 Intl Units Cap PO SCH (23:45)
[2017-07-15] MEDS: DiphenhydrAMINE 50 mg/ml Inj IVP PRN ×6 (00:28→20:29)
[2017-07-15] MEDS ORDERED: (Novolog) Insulin Aspart, Recombinant 100 u/ml 10 ml vial SC ONE (02:39)
[2017-07-15] MEDS: (Novolog) Insulin Aspart, Recombinant 100 u/ml 10 ml vial SC SCH ×4 (08:30→22:56)
[2017-07-15] MEDS: Multivitamin Vitamin B Complex (Nephro-Vite) Tab PO SCH (08:37)
[2017-07-15] MEDS: NIFEdipine 60 mg ER Tab PO SCH ×2 (09:48→17:50)
[2017-07-15] MEDS: Pantoprazole 40 mg EC Tab PO SCH (09:48)
--- NOTE | 2017-07-15 10:45 | CP.PCM.PN ---
Subjective - Date & Time of Evaluation Date of Evaluation: 07/15/17 Time of Evaluation: 10:44 - Subjective Subjective: Podiatry Progress Note - Dr. Noble 31 year old female patient PMHx anemia, anxiety, asthma, CHF, DM, hepatitis, HTN , hypercholesterolemia, chronic pancreatitis, ESRD seen and evaluated at bedside for painful right 3rd digit. Patient hemodynamically stable and NAD. Denies any acute events overnight. Patient reports continued tenderness to the tip of her 3rd digit, and is concerned about the discoloration. Denies N/V/F/D/C /SOB/cp. Offers no other pedal complaints at this time. Objective - Vital Signs/Intake and Output Vital Signs (last 24 hours): Temp Pulse Resp BP Pulse Ox 97.6 F 96 H 18 141/54 L 99 07/15/17 08:25 07/15/17 08:25 07/15/17 08:25 07/15/17 08:25 07/15/17 08:25 Intake and Output: 07/15/17 07/15/17 06:59 18:59 Intake Total 490 Output Total 0 Balance 490 - Medications Medications: Current Medications Clonidine HCl (Catapres) 0.3 mg PO BID [facility] Last Admin: 07/15/17 09:48 Dose: 0.3 mg Diphenhydramine HCl (Benadryl) 50 mg IVP Q4 PRN PRN Reason: itchiness Last Admin: 07/15/17 08:29 Dose: 50 mg Ergocalciferol (Drisdol 50,000 Intl Units Cap) 1 cap PO Q7D [facility] Last Admin: 07/15/17 00:45 Dose: 1 cap Heparin Sodium (Porcine) (Heparin) 5,000 units SC Q8 [facility] Last Admin: 07/15/17 06:06 Dose: Not Given Hydralazine HCl (Apresoline) 10 mg IVP Q6H PRN PRN Reason: high BP Last Admin: 07/15/17 06:53 Dose: 10 mg Hydromorphone HCl (Dilaudid) 2 mg IVP Q4H PRN PRN Reason: Pain, severe (8-10) Last Admin: 07/15/17 08:29 Dose: 2 mg Insulin Aspart (Novolog) 0 unit SC ACHS [facility] PRN Reason: Protocol Last Admin: 07/15/17 08:30 Dose: 3 unit Nifedipine (Procardia Xl) 60 mg PO BID [facility] Last Admin: 07/15/17 09:48 Dose: 60 mg Pantoprazole Sodium (Protonix Ec Tab) 40 mg PO DAILY [facility] Last Admin: 07/15/17 09:48 Dose: 40 mg Vitamin B Complex/Vit C/Folic Acid (Nephro-Vamshi) 1 tab PO 0800 [facility] Last Admin: 07/15/17 08:37 Dose: 1 tab - Labs Labs: 07/14/17 16:58 07/14/17 16:58 - Constitutional Appears: Well, Non-toxic, No Acute Distress - Extremities Exam Additional comments: RLE focused physical exam VASC: DP and PT pulses palpable 2/4. CFT <3 seconds to all digits. Temperature gradient cool to cool. No increase in warmth noted to 3rd digit. No edema noted. NEURO: Gross sensation intact DERM: Hyperpigmented 3rd digit with absent erythema/drainage/purulence/ fluctuance noted. No open lesions noted to 3rd digit. Nails 1-5 appear thickened , elongated, incurvated, with the presence of subungual debris. ORTHO: Tenderness to palpation 3rd digit nail bed. No pain upon ROM 3rd digit. Muscle strength 5/5 for all dorsiflexors, plantarflexors, inverters, and everters. - Neurological Exam Neurological Exam: Alert, Awake, Oriented x3 - Psychiatric Exam Psychiatric exam: Anxious Assessment and Plan - Assessment and Plan (Free Text) Assessment: 31 year old female patient with pain in 3rd digit, stable Plan: Patient seen and evaluated Discussed with attending, Dr. Noble Patient afebrile, WBC 5.7 yesterday No clinical signs of infection noted at this time Continue to monitor right 3rd digit for any signs of infection Podiatry will continue to follow patient while in house
--- NOTE | 2017-07-15 17:08 | CP.PCM.PN ---
Subjective - Date & Time of Evaluation Date of Evaluation: 07/15/17 Time of Evaluation: 11:40 - Subjective Subjective: clinically same Objective - Vital Signs/Intake and Output Vital Signs (last 24 hours): Temp Pulse Resp BP Pulse Ox 97.6 F 96 H 18 141/54 L 99 07/15/17 08:25 07/15/17 08:25 07/15/17 08:25 07/15/17 08:25 07/15/17 08:25 Intake and Output: 07/15/17 07/15/17 06:59 18:59 Intake Total 490 Output Total 0 Balance 490 - Medications Medications: Current Medications Clonidine HCl (Catapres) 0.3 mg PO BID [facility] Last Admin: 07/15/17 09:48 Dose: 0.3 mg Diphenhydramine HCl (Benadryl) 50 mg IVP Q4 PRN PRN Reason: itchiness Last Admin: 07/15/17 16:24 Dose: 50 mg Ergocalciferol (Drisdol 50,000 Intl Units Cap) 1 cap PO Q7D [facility] Last Admin: 07/15/17 00:45 Dose: 1 cap Heparin Sodium (Porcine) (Heparin) 5,000 units SC Q8 [facility] Last Admin: 07/15/17 13:52 Dose: Not Given Hydralazine HCl (Apresoline) 10 mg IVP Q6H PRN PRN Reason: high BP Last Admin: 07/15/17 06:53 Dose: 10 mg Hydromorphone HCl (Dilaudid) 2 mg IVP Q4H PRN PRN Reason: Pain, severe (8-10) Last Admin: 07/15/17 16:25 Dose: 2 mg Insulin Aspart (Novolog) 0 unit SC ACHS [facility] PRN Reason: Protocol Last Admin: 07/15/17 12:24 Dose: 4 unit Nifedipine (Procardia Xl) 60 mg PO BID [facility] Last Admin: 07/15/17 09:48 Dose: 60 mg Pantoprazole Sodium (Protonix Ec Tab) 40 mg PO DAILY [facility] Last Admin: 07/15/17 09:48 Dose: 40 mg Vitamin B Complex/Vit C/Folic Acid (Nephro-Vamshi) 1 tab PO 0800 [facility] Last Admin: 07/15/17 08:37 Dose: 1 tab - Labs Labs: 07/14/17 16:58 07/14/17 16:58
[2017-07-16] MEDS: DiphenhydrAMINE 50 mg/ml Inj IVP PRN ×6 (00:25→21:43)
[2017-07-16] MEDS ORDERED: (Novolog) Insulin Aspart, Recombinant 100 u/ml 10 ml vial SC ONE (00:48)
--- NOTE | 2017-07-16 08:18 | CP.PCM.PN ---
Subjective - Date & Time of Evaluation Date of Evaluation: 07/16/17 Time of Evaluation: 08:15 - Subjective Subjective: PGY-[address] Sexton's Service: Pt seen and examined at bedside. Nursing reports no acute events overnight. Patient denies any abdominal pain, or N/V this AM. She does admit to "feeling itchy all over" which subsides with benadryl IV. She is for dialysis this afternoon. She reports tolerating diet without difficulty at this time. Patient reports continued discomfort on right third digit on right foot for which podiatry is following patient. She denies open wound but admits discoloration of the toenail. Objective - Vital Signs/Intake and Output Vital Signs (last 24 hours): Temp Pulse Resp BP Pulse Ox 97.6 F 79 20 177/86 H 98 07/16/17 07:40 07/16/17 07:40 07/16/17 07:40 07/16/17 07:40 07/16/17 07:40 - Medications Medications: Current Medications Clonidine HCl (Catapres) 0.3 mg PO BID [facility] Last Admin: 07/15/17 17:50 Dose: 0.3 mg Diphenhydramine HCl (Benadryl) 50 mg IVP Q4 PRN PRN Reason: itchiness Last Admin: 07/16/17 04:25 Dose: 50 mg Ergocalciferol (Drisdol 50,000 Intl Units Cap) 1 cap PO Q7D [facility] Last Admin: 07/15/17 00:45 Dose: 1 cap Hydralazine HCl (Apresoline) 10 mg IVP Q6H PRN PRN Reason: high BP Last Admin: 07/16/17 00:22 Dose: 10 mg Hydromorphone HCl (Dilaudid) 2 mg IVP Q4H PRN PRN Reason: Pain, severe (8-10) Last Admin: 07/16/17 04:25 Dose: 2 mg Insulin Aspart (Novolog) 0 unit SC ACHS [facility] PRN Reason: Protocol Last Admin: 07/15/17 22:56 Dose: Not Given Nifedipine (Procardia Xl) 60 mg PO BID [facility] Last Admin: 07/15/17 17:50 Dose: 60 mg Pantoprazole Sodium (Protonix Ec Tab) 40 mg PO DAILY [facility] Last Admin: 07/15/17 09:48 Dose: 40 mg Vitamin B Complex/Vit C/Folic Acid (Nephro-Vamshi) 1 tab PO 0800 [facility] Last Admin: 07/15/17 08:37 Dose: 1 tab - Labs Labs: 07/14/17 16:58 07/14/17 16:58 - Additional Findings Additional findings: - Constitutional Appears: Non-toxic, No Acute Distress, Chronically Ill - Head Exam Head Exam: NORMOCEPHALIC - pt on 2L O2 - Eye Exam Eye Exam: Normal appearance Pupil Exam: NORMAL ACCOMODATION - Respiratory Exam Respiratory Exam: Clear to Auscultation Bilateral, no rales/rhonchi, NORMAL BREATHING PATTERN - Cardiovascular Exam Cardiovascular Exam: REGULAR RHYTHM, +S1, +S2. absent: Gallop, Rubs - GI/Abdominal Exam GI & Abdominal Exam: Soft, Normal Bowel Sounds. absent: Tenderness - Extremities Exam Additional comments: Dp/Pt pulses intact 2/4, capillary return WNL, no erythema/edema noted on 3rd toe, TTP at 3rd digit of right foot - Neurological Exam Neurological Exam: Alert, Awake, Oriented x3 - Psychiatric Exam Psychiatric exam: Normal Mood Assessment and Plan - Assessment and Plan (Free Text) Plan: Diabetic gastroparesis Admit on 07/13 for abd pain, N/V Pt reports abd pain resolved BG with wide swings, due to patient irregular, poor eating habits Accuchecks QAC&HS Novolog ISS Levemir 12 units SQ Q12H (hold as pt NPO after midnight) Aspart 6 units SC AC (hold as pt NPO after midnight) Zofran 4 mg IV Q6 PRN Reglan 10 mg IV Q6 PRN Diluadid 2mg IV Q4H PRN Benadryl 25mg IV Q4H PRN for dialysis Type Two Diabetes Mellitus BG with wide swings, due to patient irregular, poor eating habits Accuchecks QAC&HS Novolog ISS Levemir 12 units SQ Q12H (HOLD) Aspart 6 units SC AC (HOLD) - will restart 07/17 after surgical procedure Right Foot Pain 3rd digit right foot pain Dr. Cardenas consulted - podiatry will have debridement tomorrow - no signs of infection, pt afebrile Pre-op clearance EKG (07/16/17): NSR, LVH, No acute ST/T wave changes f/u CXR, PT/PTT/INR, Urine Boswell Score: 0.56% estimated probable risk for nikhil-operative [place]/cardiac arrest ESRD on HD- MWF Consult: Dr. Beckman (help appreciated) - had extra dialysis on Sunday, 07/24 Phoslo 667mg PO TID Nephro-Vamshi Ergocalciferol 50k units for Vit D deficiency HTN Urgency Max 213/123 on admission - Pressures elevated this AM Clonidine 0.3 mg PO BID Procardia XL 60 mg PO Q12H Hydralazine 10mg IV Q6H if SBP > 160 Transplant Consideration Social work reports [facility] needs workup for possible kidney transplant - f/u hepatitis panel, HIV serology Hx of hypertensive cardiomyopathy KAMRAN 03/02/17: No evidence of endocarditis. LVEF WNL. Cardiac Catheterization on prior admission revealed patent coronaries; hypertensive cardiomyopahy EF: 45 Clonidine 0.3 mg PO BID Procardia XL 60 mg PO Q12H Prophylactic Measure Heparin 5000 units SQ Q12H (HOLD, can restart after pediatric surgery) Protonix 40mg PO Daily [facility] Disposition: Pt for debridement tomorrow. Pre-op workup ordered. Will give clearance based on results. Escobar Meek PGY-2 All medical management per Dr. Sexton
[2017-07-16] MEDS: Multivitamin Vitamin B Complex (Nephro-Vite) Tab PO SCH (08:29)
[2017-07-16] MEDS: (Novolog) Insulin Aspart, Recombinant 100 u/ml 10 ml vial SC SCH ×4 (08:38→21:50)
[2017-07-16] MEDS ORDERED: DiphenhydrAMINE 50 mg/ml Inj IVP STA (09:52)
[2017-07-16] MEDS: Pantoprazole 40 mg EC Tab PO SCH (10:11)
[2017-07-16] MEDS: NIFEdipine 60 mg ER Tab PO SCH ×2 (10:11→18:25)
[2017-07-16 14:22] LABS: BASO # 0.1 K/uL (0.0-0.2); BASO % 0.9 % (0.0-2.0); EOS % 13.9 % (0.0-4.0); HEMATOCRIT 30.7 % (34.0-47.0); LYMPH # 1.2 K/uL (1.0-4.3); LYMPH % 17.6 % (20.0-40.0); MEAN CELL VOLUME 94.5 fL (81.0-99.0); MEAN CORPUSCULAR HEMOGLOBIN 31.6 pg (27.0-31.0); MEAN CORPUSCULAR HGB CONC 33.4 g/dL (33.0-37.0); MEAN PLATELET VOLUME 7.8 fL (7.2-11.7); MONO # 0.6 K/uL (0.0-0.8); MONO % 8.4 % (0.0-10.0); NRBC % 0.1 % (0.0-2.0); RED CELL DISTRIBUTION WIDTH 16.6 % (11.5-14.5); WHITE BLOOD COUNT 6.9 K/uL (4.8-10.8)
[2017-07-16] MEDS ORDERED: DiphenhydrAMINE 50 mg/ml Inj IVP ONE (14:57)
[2017-07-16] MEDS ORDERED: DiphenhydrAMINE 50 mg/ml Inj IM STA (14:57)
[2017-07-16 15:13] LABS: ALB/GLOB RATIO 0.9 (1.0-2.1); BILIRUBIN,TOTAL 0.5 mg/dL (0.2-1.3); CALCIUM 7.9 mg/dl (8.6-10.4); PHOSPHOROUS 6.2 mg/dL (2.5-4.5); POTASSIUM 4.6 mmol/L (3.6-5.2); TOTAL PROTEIN 8.5 g/dL (6.3-8.3)
[2017-07-16 16:43] LABS: INR 1.1
--- NOTE | 2017-07-16 16:55 | CON ---
DATE: 07/16/2017 REQUESTING PHYSICIAN: Dr. Sexton. HISTORY OF PRESENT ILLNESS: This is a 31-year-old female well-known to me from prior foot surgeries. Notified over the weekend concerning some discomfort about the third digit of the right foot. Neurovascular status of the bilateral lower extremities within normal limits, palpable dorsalis and tibialis posterior pulses noted, no open draining sinuses, no signs of overt ulcers. There is, however, onychomycotic toenail about the third digits bilaterally as well as complaining of pain on the medial aspect of the left hallux. Surgical options explained to the patient and the patient is agreeing to have the nail plates permanently excised and a portion of her left hallux nail plate to be permanently removed as well. At this time, medical clearance will be requested from her copy holder. PLAN: Local and IV sedation for excision of nail and matrix of toenails on both feet, will be notifying the podiatry residents of my finding. Alexei Cardenas DPM
--- NOTE | 2017-07-16 18:26 | CP.PCM.PN ---
Objective - Vital Signs/Intake and Output Vital Signs (last 24 hours): Temp Pulse Resp BP Pulse Ox 98.1 F 85 20 143/85 100 07/16/17 17:00 07/16/17 17:00 07/16/17 17:00 07/16/17 17:00 07/16/17 17:00 Intake and Output: 07/16/17 07/16/17 06:59 18:59 Intake Total 660 Balance 660 - Medications Medications: Current Medications Clonidine HCl (Catapres) 0.3 mg PO BID [facility] Last Admin: 07/16/17 10:11 Dose: 0.3 mg Diphenhydramine HCl (Benadryl) 50 mg IVP Q4 PRN PRN Reason: itchiness Last Admin: 07/16/17 16:39 Dose: 50 mg Ergocalciferol (Drisdol 50,000 Intl Units Cap) 1 cap PO Q7D [facility] Last Admin: 07/15/17 00:45 Dose: 1 cap Hydralazine HCl (Apresoline) 10 mg IVP Q6H PRN PRN Reason: high BP Hydromorphone HCl (Dilaudid) 2 mg IVP Q4H PRN PRN Reason: Pain, severe (8-10) Last Admin: 07/16/17 16:37 Dose: 2 mg Insulin Aspart (Novolog) 0 unit SC ACHS [facility] PRN Reason: Protocol Last Admin: 07/16/17 16:30 Dose: Not Given Nifedipine (Procardia Xl) 60 mg PO BID [facility] Last Admin: 07/16/17 10:11 Dose: 60 mg Pantoprazole Sodium (Protonix Ec Tab) 40 mg PO DAILY [facility] Last Admin: 07/16/17 10:11 Dose: 40 mg Vitamin B Complex/Vit C/Folic Acid (Nephro-Vamshi) 1 tab PO 0800 [facility] Last Admin: 07/16/17 08:29 Dose: 1 tab - Labs Labs: 07/16/17 14:16 07/16/17 14:16 PT 12.2 SECONDS (9.7-12.2) 07/16/17 16:30 INR 1.1 07/16/17 16:30 APTT 33 SECONDS (21-34) 07/16/17 16:30
[2017-07-16] MEDS ORDERED: HYDROmorphone 1 mg/ml ISec IVP STA (19:28)
--- NOTE | 2017-07-16 19:44 | CP.PCM.PN ---
Subjective - Date & Time of Evaluation Date of Evaluation: 07/16/17 Time of Evaluation: 13:00 - Subjective Subjective: clinically same Objective - Vital Signs/Intake and Output Vital Signs (last 24 hours): Temp Pulse Resp BP Pulse Ox 98.1 F 85 20 143/85 100 07/16/17 17:00 07/16/17 17:00 07/16/17 17:00 07/16/17 17:00 07/16/17 17:00 Intake and Output: 07/16/17 07/17/17 18:59 06:59 Intake Total 660 Balance 660 - Medications Medications: Current Medications Clonidine HCl (Catapres) 0.3 mg PO BID [facility] Last Admin: 07/16/17 18:25 Dose: Not Given Diphenhydramine HCl (Benadryl) 50 mg IVP Q4 PRN PRN Reason: itchiness Last Admin: 07/16/17 16:39 Dose: 50 mg Ergocalciferol (Drisdol 50,000 Intl Units Cap) 1 cap PO Q7D [facility] Last Admin: 07/15/17 00:45 Dose: 1 cap Hydralazine HCl (Apresoline) 10 mg IVP Q6H PRN PRN Reason: high BP Hydromorphone HCl (Dilaudid) 2 mg IVP Q4H PRN PRN Reason: Pain, severe (8-10) Last Admin: 07/16/17 16:37 Dose: 2 mg Insulin Aspart (Novolog) 0 unit SC ACHS [facility] PRN Reason: Protocol Last Admin: 07/16/17 16:30 Dose: Not Given Nifedipine (Procardia Xl) 60 mg PO BID [facility] Last Admin: 07/16/17 18:25 Dose: Not Given Pantoprazole Sodium (Protonix Ec Tab) 40 mg PO DAILY [facility] Last Admin: 07/16/17 10:11 Dose: 40 mg Vitamin B Complex/Vit C/Folic Acid (Nephro-Vamshi) 1 tab PO 0800 [facility] Last Admin: 07/16/17 08:29 Dose: 1 tab - Labs Labs: 07/16/17 14:16 07/16/17 14:16 PT 12.2 SECONDS (9.7-12.2) 07/16/17 16:30 INR 1.1 07/16/17 16:30 APTT 33 SECONDS (21-34) 07/16/17 16:30
[2017-07-16] MEDS ORDERED: (Novolog) Insulin Aspart, Recombinant 100 u/ml 10 ml vial SC SCH (22:32)
--- NOTE | 2017-07-16 23:19 | CARD ---
APPROVED REPORT EKG Measurement Heart [id number] <Conclusion> Normal sinus rhythm Voltage criteria for left ventricular hypertrophy T wave abnormality, consider lateral ischemia Abnormal ECG
[2017-07-17] MEDS: DiphenhydrAMINE 50 mg/ml Inj IVP PRN ×6 (01:46→21:58)
[2017-07-17] MEDS: Multivitamin Vitamin B Complex (Nephro-Vite) Tab PO SCH (08:43)
[2017-07-17] MEDS: (Novolog) Insulin Aspart, Recombinant 100 u/ml 10 ml vial SC SCH ×4 (08:43→21:23)
--- NOTE | 2017-07-17 10:01 | CP.PCM.PN ---
Subjective - Date & Time of Evaluation Date of Evaluation: 07/17/17 Time of Evaluation: 07:30 - Subjective Subjective: Medicine Note- Dr. Sexton's service Patient was seen and examined at bedside. Patient reports no acute complaints at this time. She appears comfortable and at rest. Patient understands that she may be going for her foot procedures soon, after cardio has evaluated her. Nursing reports no events overnight. Objective - Vital Signs/Intake and Output Vital Signs (last 24 hours): Temp Pulse Resp BP Pulse Ox 98.3 F 98 H 20 157/85 H 100 07/17/17 08:59 07/17/17 08:59 07/17/17 08:59 07/17/17 08:59 07/17/17 08:59 Intake and Output: 07/17/17 07/17/17 06:59 18:59 Output Total 200 Balance -200 - Medications Medications: Current Medications Clonidine HCl (Catapres) 0.3 mg PO BID [facility] Last Admin: 07/16/17 18:25 Dose: Not Given Diphenhydramine HCl (Benadryl) 50 mg IVP Q4 PRN PRN Reason: itchiness Last Admin: 07/17/17 05:57 Dose: 50 mg Ergocalciferol (Drisdol 50,000 Intl Units Cap) 1 cap PO Q7D [facility] Last Admin: 07/15/17 00:45 Dose: 1 cap Hydralazine HCl (Apresoline) 10 mg IVP Q6H PRN PRN Reason: high BP Hydromorphone HCl (Dilaudid) 2 mg IVP Q4H PRN PRN Reason: Pain, severe (8-10) Last Admin: 07/17/17 05:57 Dose: 2 mg Insulin Aspart (Novolog) 0 unit SC ACHS [facility] PRN Reason: Protocol Last Admin: 07/17/17 08:43 Dose: 6 unit Nifedipine (Procardia Xl) 60 mg PO BID [facility] Last Admin: 07/16/17 18:25 Dose: Not Given Pantoprazole Sodium (Protonix Ec Tab) 40 mg PO DAILY [facility] Last Admin: 07/16/17 10:11 Dose: 40 mg Vitamin B Complex/Vit C/Folic Acid (Nephro-Vamshi) 1 tab PO 0800 [facility] Last Admin: 07/17/17 08:43 Dose: 1 tab - Labs Labs: 07/16/17 14:16 07/16/17 14:16 PT 12.2 SECONDS (9.7-12.2) 07/16/17 16:30 INR 1.1 07/16/17 16:30 APTT 33 SECONDS (21-34) 07/16/17 16:30 - Constitutional Appears: Non-toxic, No Acute Distress - Head Exam Head Exam: ATRAUMATIC, NORMAL INSPECTION, NORMOCEPHALIC - Eye Exam Pupil Exam: NORMAL ACCOMODATION, PERRL - ENT Exam ENT Exam: Mucous Membranes Moist - Respiratory Exam Respiratory Exam: Clear to Ausculation Bilateral, NORMAL BREATHING PATTERN. absent: Prolonged Expiratory Phase, Rales, Rhonchi, Wheezes - Cardiovascular Exam Cardiovascular Exam: REGULAR RHYTHM, Murmur - GI/Abdominal Exam GI & Abdominal Exam: Soft, Normal Bowel Sounds. absent: Tenderness, Diminished Bowel Sounds, Hypoactive Bowel Sounds, Pulsatile Mass - Extremities Exam Extremities Exam: Normal Capillary Refill Additional comments: 3rd toe on both feet appear discolored - Neurological Exam Neurological Exam: Alert, Awake, Oriented x3 - Psychiatric Exam Psychiatric exam: Normal Affect, Normal Mood - Skin Skin Exam: Dry, Intact, Normal Color, Warm Assessment and Plan - Assessment and Plan (Free Text) Assessment: Right Foot Pain 3rd digit right foot pain Dr. Cardenas consulted - podiatry will have debridement tomorrow - no signs of infection, pt afebrile Pre-op clearance EKG (07/16/17): NSR, LVH, No acute ST/T wave changes CXR- mild interstitial prominence may reflect infection or edema. Cardiomegaly PT/PTT normal Urine pending Boswell Score: 0.56% estimated probable risk for nikhil-operative [place]/cardiac arrest Consult Cardio- Dr. Santos- pending recommendations. Diabetic gastroparesis Admit on 07/13 for abd pain, N/V Pt reports abd pain resolved BG with wide swings, due to patient irregular, poor eating habits Accuchecks QAC&HS Novolog ISS Levemir 12 units SQ Q12H (hold as pt NPO after midnight) Aspart 6 units SC AC (hold as pt NPO after midnight) Zofran 4 mg IV Q6 PRN Reglan 10 mg IV Q6 PRN Diluadid 2mg IV Q4H PRN Benadryl 25mg IV Q4H PRN for dialysis Type Two Diabetes Mellitus BG with wide swings, due to patient irregular, poor eating habits Accuchecks QAC&HS Novolog ISS Levemir 12 units SQ Q12H (HOLD) Aspart 6 units SC AC (HOLD) - will restart 07/17 after surgical procedure ESRD on HD- MWF Consult: Dr. Beckman (help appreciated) - had extra dialysis on Sunday, 07/24 Phoslo 667mg PO TID Nephro-Vamshi Ergocalciferol 50k units for Vit D deficiency HTN Urgency Max 213/123 on admission - Pressures elevated this AM Clonidine 0.3 mg PO BID Procardia XL 60 mg PO Q12H Hydralazine 10mg IV Q6H if SBP > 160 Transplant Consideration Social work reports [facility] needs workup for possible kidney transplant Hepatitis and HIV panel negative Hx of hypertensive cardiomyopathy KAMRAN 03/02/17: No evidence of endocarditis. LVEF WNL. Cardiac Catheterization on prior admission revealed patent coronaries; hypertensive cardiomyopahy EF: 45 Clonidine 0.3 mg PO BID Procardia XL 60 mg PO Q12H Prophylactic Measure Heparin 5000 units SQ Q12H (HOLD, can restart after pediatric surgery) Protonix 40mg PO Daily [facility] All medical management per Dr. Sexton
[2017-07-17] MEDS: NIFEdipine 60 mg ER Tab PO SCH ×4 (10:07→18:09)
[2017-07-17] MEDS: Pantoprazole 40 mg EC Tab PO SCH ×3 (10:07→12:31)
--- NOTE | 2017-07-17 11:20 | CP.PCM.PN ---
Subjective - Date & Time of Evaluation Date of Evaluation: 07/17/17 Time of Evaluation: 09:15 - Subjective Subjective: 31 year old female seen at [facility]ide for left 3rd digit ischemic changes. Pt reports minor pain to distal 3rtd digit, graded 2/10. Pt has no other pedal complaints.Pt denies recent f/c/cp/sob/n/v. Objective - Vital Signs/Intake and Output Vital Signs (last 24 hours): Temp Pulse Resp BP Pulse Ox 98.3 F 98 H 20 157/85 H 100 07/17/17 08:59 07/17/17 08:59 07/17/17 08:59 07/17/17 08:59 07/17/17 08:59 Intake and Output: 07/17/17 07/17/17 06:59 18:59 Output Total 200 Balance -200 - Medications Medications: Current Medications Clonidine HCl (Catapres) 0.3 mg PO BID [facility] Last Admin: 07/17/17 10:17 Dose: Not Given Diphenhydramine HCl (Benadryl) 50 mg IVP Q4 PRN PRN Reason: itchiness Last Admin: 07/17/17 10:07 Dose: 50 mg Ergocalciferol (Drisdol 50,000 Intl Units Cap) 1 cap PO Q7D [facility] Last Admin: 07/15/17 00:45 Dose: 1 cap Hydralazine HCl (Apresoline) 10 mg IVP Q6H PRN PRN Reason: high BP Hydromorphone HCl (Dilaudid) 2 mg IVP Q4H PRN PRN Reason: Pain, severe (8-10) Last Admin: 07/17/17 10:07 Dose: 2 mg Insulin Aspart (Novolog) 0 unit SC ACHS [facility] PRN Reason: Protocol Last Admin: 07/17/17 08:43 Dose: 6 unit Nifedipine (Procardia Xl) 60 mg PO BID [facility] Last Admin: 07/17/17 10:18 Dose: Not Given Pantoprazole Sodium (Protonix Ec Tab) 40 mg PO DAILY [facility] Last Admin: 07/17/17 10:18 Dose: Not Given Vitamin B Complex/Vit C/Folic Acid (Nephro-Vamshi) 1 tab PO 0800 [facility] Last Admin: 07/17/17 08:43 Dose: 1 tab - Labs Labs: 07/16/17 14:16 07/16/17 14:16 PT 12.2 SECONDS (9.7-12.2) 07/16/17 16:30 INR 1.1 07/16/17 16:30 APTT 33 SECONDS (21-34) 07/16/17 16:30 Assessment and Plan - Assessment and Plan (Free Text) Assessment: 31 year old female with left 3rd digit painful discoloration. Plan: Pt seen and evaluated. Chart, labs, and vitals. Pt medical clearance -pending. Pt cardiac clearance -pending. Pt scheduled for left 3rd digit nail debridement tomorrow 06/18/17 at 9 am. Pt to be placed NPO at midnight.
--- NOTE | 2017-07-17 12:12 | RAD ---
HISTORY: pre-op COMPARISON: June 17 2017 TECHNIQUE: Chest PA and lateral FINDINGS: LUNGS: No consolidation. The prior interstitial lung marking prominence appears less conspicuous PLEURA: No significant pleural effusion identified. No pneumothorax apparent. CARDIOVASCULAR: Cardiomegaly as before OSSEOUS STRUCTURES: No significant abnormalities. VISUALIZED UPPER ABDOMEN: IVC filter in place. Retained catheter segment -right supraclavicular region -similar OTHER FINDINGS: None. IMPRESSION: No interval pathology. Cardiomegaly as before
--- NOTE | 2017-07-17 17:47 | CP.PCM.PN ---
Subjective - Date & Time of Evaluation Date of Evaluation: 07/17/17 Time of Evaluation: 12:20 - Subjective Subjective: clinically same Objective - Vital Signs/Intake and Output Vital Signs (last 24 hours): Temp Pulse Resp BP Pulse Ox 98.3 F 88 20 103/64 100 07/17/17 08:59 07/17/17 15:55 07/17/17 15:55 07/17/17 15:55 07/17/17 08:59 Intake and Output: 07/17/17 07/17/17 06:59 18:59 Output Total 200 Balance -200 - Medications Medications: Current Medications Clonidine HCl (Catapres) 0.3 mg PO BID [facility] Last Admin: 07/17/17 12:29 Dose: 0.3 mg Diphenhydramine HCl (Benadryl) 50 mg IVP Q4 PRN PRN Reason: itchiness Last Admin: 07/17/17 14:06 Dose: 50 mg Docusate Sodium (Colace) 100 mg PO DAILY [facility] Last Admin: 07/17/17 12:37 Dose: 100 mg Ergocalciferol (Drisdol 50,000 Intl Units Cap) 1 cap PO Q7D [facility] Last Admin: 07/15/17 00:45 Dose: 1 cap Hydralazine HCl (Apresoline) 10 mg IVP Q6H PRN PRN Reason: high BP Hydromorphone HCl (Dilaudid) 2 mg IVP Q4H PRN PRN Reason: Pain, severe (8-10) Last Admin: 07/17/17 14:10 Dose: 2 mg Insulin Aspart (Novolog) 0 unit SC ACHS [facility] PRN Reason: Protocol Last Admin: 07/17/17 12:17 Dose: Not Given Nifedipine (Procardia Xl) 60 mg PO BID [facility] Last Admin: 07/17/17 12:30 Dose: 60 mg Pantoprazole Sodium (Protonix Ec Tab) 40 mg PO DAILY [facility] Last Admin: 07/17/17 12:31 Dose: 40 mg Vitamin B Complex/Vit C/Folic Acid (Nephro-Vamshi) 1 tab PO 0800 [facility] Last Admin: 07/17/17 08:43 Dose: 1 tab - Labs Labs: 07/16/17 14:16 07/16/17 14:16 PT 12.2 SECONDS (9.7-12.2) 07/16/17 16:30 INR 1.1 07/16/17 16:30 APTT 33 SECONDS (21-34) 07/16/17 16:30 - Constitutional Appears: Well - Head Exam Head Exam: ATRAUMATIC, NORMAL INSPECTION, NORMOCEPHALIC - Eye Exam Eye Exam: EOMI, Normal appearance, PERRL Pupil Exam: NORMAL ACCOMODATION, PERRL - ENT Exam ENT Exam: Mucous Membranes Moist, Normal Exam - Neck Exam Neck Exam: Full ROM, Normal Inspection. absent: Lymphadenopathy - Respiratory Exam Respiratory Exam: Decreased Breath Sounds - Cardiovascular Exam Cardiovascular Exam: REGULAR RHYTHM, +S1, +S2 - GI/Abdominal Exam GI & Abdominal Exam: Soft, Diminished Bowel Sounds - Rectal Exam Rectal Exam: Deferred
--- NOTE | 2017-07-17 18:47 | CP.PCM.PN ---
Subjective - Date & Time of Evaluation Date of Evaluation: 07/17/17 Time of Evaluation: 15:00 - Subjective Subjective: SEEN ON RENAL F/U FEELS IMPROVED GOING FOR PODIATRY SURGERY ON HD W Objective - Vital Signs/Intake and Output Vital Signs (last 24 hours): Temp Pulse Resp BP Pulse Ox 98.3 F 88 20 103/64 100 07/17/17 08:59 07/17/17 15:55 07/17/17 15:55 07/17/17 15:55 07/17/17 08:59 Intake and Output: 07/17/17 07/17/17 06:59 18:59 Output Total 200 Balance -200 - Medications Medications: Current Medications Clonidine HCl (Catapres) 0.3 mg PO BID [facility] Last Admin: 07/17/17 18:06 Dose: 0.3 mg Diphenhydramine HCl (Benadryl) 50 mg IVP Q4 PRN PRN Reason: itchiness Last Admin: 07/17/17 18:01 Dose: 50 mg Docusate Sodium (Colace) 100 mg PO DAILY [facility] Last Admin: 07/17/17 12:37 Dose: 100 mg Ergocalciferol (Drisdol 50,000 Intl Units Cap) 1 cap PO Q7D [facility] Last Admin: 07/15/17 00:45 Dose: 1 cap Hydralazine HCl (Apresoline) 10 mg IVP Q6H PRN PRN Reason: high BP Hydromorphone HCl (Dilaudid) 2 mg IVP Q4H PRN PRN Reason: Pain, severe (8-10) Last Admin: 07/17/17 18:04 Dose: 2 mg Insulin Aspart (Novolog) 0 unit SC ACHS [facility] PRN Reason: Protocol Last Admin: 07/17/17 18:06 Dose: 10 unit Nifedipine (Procardia Xl) 60 mg PO BID [facility] Last Admin: 07/17/17 18:09 Dose: Not Given Pantoprazole Sodium (Protonix Ec Tab) 40 mg PO DAILY [facility] Last Admin: 07/17/17 12:31 Dose: 40 mg Vitamin B Complex/Vit C/Folic Acid (Nephro-Vamshi) 1 tab PO 0800 [facility] Last Admin: 07/17/17 08:43 Dose: 1 tab - Labs Labs: 07/16/17 14:16 07/16/17 14:16 PT 12.2 SECONDS (9.7-12.2) 07/16/17 16:30 INR 1.1 07/16/17 16:30 APTT 33 SECONDS (21-34) 07/16/17 16:30 Assessment and Plan - Assessment and Plan (Free Text) Assessment: ESRD ON HD M W F ANEMIA OF CKD .. H/H STABLE MMP P : C/O CURRENT CARE C/O PRESENT MANAGEMENT
[2017-07-18] MEDS: DiphenhydrAMINE 50 mg/ml Inj IVP PRN ×5 (02:06→21:24)
--- NOTE | 2017-07-18 06:31 | CP.PCM.PN ---
Subjective - Date & Time of Evaluation Date of Evaluation: 07/18/17 Time of Evaluation: 06:23 - Subjective Subjective: PGY-[address] Sexton's Service: Pt seen and examined at bedside. Nursing reports no acute events overnight. Pt is NPO today for podiatry procedure, as well as dialysis to follow. CODE STAR on patient this morning (see attached post-fall note for further details). Patient admits pain over right anterior ribs after fall. She denies prodrome of chest pain, palpitations, dizziness, or lightheadedness, before the fall. Objective - Vital Signs/Intake and Output Vital Signs (last 24 hours): Temp Pulse Resp BP Pulse Ox 97.6 F 96 H 18 123/89 97 07/17/17 23:50 07/18/17 06:05 07/17/17 23:50 07/18/17 06:05 07/17/17 23:50 - Medications Medications: Current Medications Clonidine HCl (Catapres) 0.3 mg PO BID [facility] Last Admin: 07/17/17 18:06 Dose: 0.3 mg Diphenhydramine HCl (Benadryl) 50 mg IVP Q4 PRN PRN Reason: itchiness Last Admin: 07/18/17 06:04 Dose: 50 mg Docusate Sodium (Colace) 100 mg PO DAILY [facility] Last Admin: 07/17/17 12:37 Dose: 100 mg Ergocalciferol (Drisdol 50,000 Intl Units Cap) 1 cap PO Q7D [facility] Last Admin: 07/15/17 00:45 Dose: 1 cap Hydralazine HCl (Apresoline) 10 mg IVP Q6H PRN PRN Reason: high BP Hydromorphone HCl (Dilaudid) 2 mg IVP Q4H PRN PRN Reason: Pain, severe (8-10) Last Admin: 07/18/17 06:05 Dose: 2 mg Insulin Aspart (Novolog) 0 unit SC ACHS [facility] PRN Reason: Protocol Last Admin: 07/17/17 21:23 Dose: Not Given Nifedipine (Procardia Xl) 60 mg PO BID [facility] Last Admin: 07/17/17 18:09 Dose: Not Given Pantoprazole Sodium (Protonix Ec Tab) 40 mg PO DAILY [facility] Last Admin: 07/17/17 12:31 Dose: 40 mg Vitamin B Complex/Vit C/Folic Acid (Nephro-Vamshi) 1 tab PO 0800 [facility] Last Admin: 07/17/17 08:43 Dose: 1 tab - Labs Labs: 07/16/17 14:16 07/16/17 14:16 PT 12.2 SECONDS (9.7-12.2) 07/16/17 16:30 INR 1.1 07/16/17 16:30 APTT 33 SECONDS (21-34) 07/16/17 16:30 - Constitutional Appears: Non-toxic, No Acute Distress - Head Exam Head Exam: ATRAUMATIC, NORMOCEPHALIC Additional comments: No bruising on scalp - Eye Exam Eye Exam: EOMI, PERRL - ENT Exam ENT Exam: Mucous Membranes Moist - Neck Exam Neck Exam: Full ROM - Respiratory Exam Respiratory Exam: Chest Wall Tenderness (Noted at anterior ribs 6-8, no step- offs appreciated), Clear to Ausculation Bilateral, NORMAL BREATHING PATTERN. absent: Accessory Muscle Use, Rales, Rhonchi, Wheezes, Respiratory Distress - Cardiovascular Exam Cardiovascular Exam: Tachycardia, +S1, +S2 - GI/Abdominal Exam GI & Abdominal Exam: Soft, Normal Bowel Sounds. absent: Tenderness - Extremities Exam Extremities Exam: Normal Inspection. absent: Pedal Edema Additional comments: Pt with midline noted AVF - Back Exam Back Exam: NORMAL INSPECTION (no bruising after fall). absent: CVA tenderness ( L), CVA tenderness (R) - Neurological Exam Neurological Exam: Alert, Awake, Oriented x3 - Psychiatric Exam Psychiatric exam: Normal Affect, Normal Mood - Skin Skin Exam: Normal Color, Warm Assessment and Plan - Assessment and Plan (Free Text) Plan: Right Rib Injury CODE STAR this AM - Pt fell on right ribs, denies loss of consciousness/headache/chest pain STAT CXR and Right ribs - negative for acute fracture per radiologist wet read ( official report to follow) Patient had been refusing telemetry monitoring, now accepting post-fall Right Foot Pain 3rd digit right foot pain Dr. Cardenas consulted - podiatry for debridement today depending on results of stat xrays/pt condition - no signs of infection, pt afebrile Pre-op clearance EKG (07/16/17): NSR, LVH, No acute ST/T wave changes CXR- mild interstitial prominence may reflect infection or edema. Cardiomegaly PT/PTT normal Urine negative on admission (07/12/17), repeated serum Boswell Score: 0.56% estimated probable risk for nikhil-operative DE/cardiac arrest Consult Cardio- Dr. Santos- cleared for podiatry procedure Diabetic gastroparesis Admit on 07/13 for abd pain, N/V Pt reports abd pain resolved BG with wide swings, due to patient irregular, poor eating habits Accuchecks QAC&HS Novolog ISS Levemir 12 units SQ Q12H (hold as pt NPO after midnight) Aspart 6 units SC AC (hold as pt NPO after midnight) Zofran 4 mg IV Q6 PRN Reglan 10 mg IV Q6 PRN Diluadid 2mg IV Q4H PRN Benadryl 25mg IV Q4H PRN for dialysis Type Two Diabetes Mellitus BG with wide swings, due to patient irregular, poor eating habits Accuchecks QAC&HS Novolog ISS Levemir 12 units SQ Q12H (HOLD) Aspart 6 units SC AC (HOLD) - will restart 07/18 after surgical procedure ESRD on HD- MWF Consult: Dr. Beckman (help appreciated) Phoslo 667mg PO TID Nephro-Vamshi Ergocalciferol 50k units for Vit D deficiency Hypertension Hypertensive urgency on admission - Max 213/123 - Pressures with much better control recently, but elevated this AM understandably after fall Clonidine 0.3 mg PO BID Procardia XL 60 mg PO Q12H Hydralazine 10mg IV Q6H if SBP > 160 Transplant Consideration Social work reports [facility] needs workup for possible kidney transplant Hepatitis and HIV panel negative Trigger Finger Left third digit Consultation, Dr. Wolf, help appreciated -f/u reccs Hx of hypertensive cardiomyopathy KAMRAN 03/02/17: No evidence of endocarditis. LVEF WNL. Cardiac Catheterization on prior admission revealed patent coronaries; hypertensive cardiomyopahy EF: 45 Clonidine 0.3 mg PO BID Procardia XL 60 mg PO Q12H Prophylactic Measure Heparin 5000 units SQ Q12H (HOLD, can restart after podiatric surgery) Protonix 40mg PO Daily [facility] Escobar Meek PGY-2 All medical management per Dr. Sexton Post Fall Progress Note - Post Fall Fall Date: 07/18/17 Fall Time: 08:16 Description of Fall: Patient reports sitting at side of bed when "she briefly nodded off" and slipped off the bed, hitting her ribs on the side table. Patient denies losing consciousness, chest pain, palpitations, dizziness, or lightheadedness before falling. She denies hitting her head. She was found by nursing staff laying at side of bed on right side. Patient was not confused after the fall. Patient had been refusing telemetry monitoring but consented to its reapplication after fall. Blood glucose checked at time of fall was 250. - Post Fall Exam Vital Sign: Temp Pulse Resp BP Pulse Ox 97.6 F 96 H 18 123/89 97 07/17/17 23:50 07/18/17 06:05 07/17/17 23:50 07/18/17 06:05 07/17/17 23:50 Skull Exam: Negative for: Scalp wound, Scalp hematoma, Scalp depression, Ridge in skull Eye Exam: Positive for: Pupils equal, Pupils reactive Ear Exam: Negative for: Discharge, Bleeding Nose Exam: Negative for: Discharge, Bleeding Skin Exam: Negative for: Lacerations, Bruising Mouth Exam: Negative for: Tongue bitten, Teeth dislodge Neck Exam: Negative for: Tenderness, Tingling, Weakness Chest Exam: Positive for: Tenderness in ribs (Right ribs 6-8 tender to palpation ). Negative for: Difficulty breathing Abdomen Exam: Negative for: Tenderness Arm Exam: Negative for: Deformity, Alteration in range of movement Leg Exam: Negative for: Deformity, Alteration in range of movement Impression/Plan: Right Rib injury from trauma Vitals BP 176/88, O2 98, HR 98, Temp 98.8 B STAT Chest x-ray and ribs bilaterally - reviewed with radiologist (negative for acute fracture) Restarted cardiac telemetry monitoring which pt was refusing
[2017-07-18] MEDS: (Novolog) Insulin Aspart, Recombinant 100 u/ml 10 ml vial SC SCH ×4 (07:54→21:18)
[2017-07-18] MEDS ORDERED: Bacitracin 50,000 UNIT in Sodium Chloride 0.9% Irrig 1,000 ML IR SCH (08:45)
[2017-07-18] MEDS ORDERED: Bupivacaine HCl 0.5% PF (10 ml) Inj ONE (08:57)
[2017-07-18] MEDS ORDERED: ceFAZolin IV 1 gm in Dextrose 1 GM/50 ML BAG IVPB ONE (08:58)
[2017-07-18] MEDS ORDERED: Lidocaine 2% Inj (20ml) ONE (08:58)
--- NOTE | 2017-07-18 09:40 | RAD ---
PROCEDURE: Radiographs of the chest and bilateral ribs HISTORY: CODE STAR, Fall on to right ribs COMPARISON: 07/17/2017 TECHNIQUE: Frontal radiograph of the chest and multiple oblique radiographs of the bilateral ribs were obtained. FINDINGS: RIGHT RIBS: No fracture or focal lesion visualized. LEFT RIBS: No fracture or focal lesion visualized. LUNGS: Clear. PLEURA: No pneumothorax or pleural fluid. CARDIOVASCULAR: Normal sized heart. No pulmonary vascular congestion. OTHER FINDINGS: None. IMPRESSION: Unremarkable radiographs of the chest and bilateral ribs. No rib fracture.
[2017-07-18] MEDS: Multivitamin Vitamin B Complex (Nephro-Vite) Tab PO SCH (09:41)
[2017-07-18] MEDS: Pantoprazole 40 mg EC Tab PO SCH (09:41)
[2017-07-18] MEDS: NIFEdipine 60 mg ER Tab PO SCH ×2 (09:41→18:25)
[2017-07-18] MEDS ORDERED: Propofol 10 mg/ml Inj (20 ML) ONE (09:43)
[2017-07-18] MEDS ORDERED: Midazolam 2 MG/2 ML VIAL ONE (09:43)
[2017-07-18] MEDS ORDERED: Sodium Chloride 0.9% 1,000 ML IV ONE (09:48)
--- NOTE | 2017-07-18 11:04 | PCM.SURG1 ---
Surgeon's Initial Post Op Note - Surgeon's Notes Surgeon: Dr. Tilley [employer] Supervisor: Ernie Bragg, PGY2 Type of Anesthesia: IV Sedation, Local (20cc 1:1 mixture 0.5% marcaine plain to 2% lidocaine plain) Anesthesia Administered By: Dr. Jakob MD Pre-Operative Diagnosis: 1) Bilateral dystrophic painful 3rd digit nails with necrotic subungal debris. 2) Left great toe ingrown toenail. Operative Findings: See dictation. 4-0 nylon Post-Operative Diagnosis: 1) Bilateral dystrophic painful 3rd digit nails. 2) Left great toe ingrown toenail. Operation Performed: 1) Bilateral 3rd digit total nail avulsions with matrixectomy. 2) Left great toe medial border partial nail avulsion with underlying exostectomy and matrixectomy. Specimen/Specimens Removed: none Estimated Blood Loss: EBL {In ML}: 15 Blood Products Given: N/A Drains Used: No Drains Post-Op Condition: Good Date of Surgery/Procedure: 07/18/17 Time of Surgery/Procedure: 10:40
[2017-07-18] MEDS ORDERED: HYDROmorphone 0.5 mg/0.5 ml ISec IVP PRN (11:14)
[2017-07-18] MEDS ORDERED: Sodium Chloride 0.9% 1,000 ML IV SCH (11:15)
[2017-07-18] MEDS ORDERED: HYDROmorphone 0.5 mg/0.5 ml ISec ONE (11:35)
[2017-07-18] MEDS ORDERED: DiphenhydrAMINE 50 mg/ml Inj IVP ONE ×2 (15:30→15:45)
[2017-07-18 15:53] LABS: BASO # 0.1 K/uL (0.0-0.2); BASO % 0.9 % (0.0-2.0); EOS # 0.6 K/uL (0.0-0.7); EOS % 9.8 % (0.0-4.0); HEMATOCRIT 30.2 % (34.0-47.0); LYMPH # 1.4 K/uL (1.0-4.3); LYMPH % 23.7 % (20.0-40.0); MEAN CELL VOLUME 94.8 fL (81.0-99.0); MEAN CORPUSCULAR HGB CONC 32.6 g/dL (33.0-37.0); MEAN PLATELET VOLUME 8.1 fL (7.2-11.7); MONO # 0.4 K/uL (0.0-0.8); MONO % 6.6 % (0.0-10.0); NRBC % 0.1 % (0.0-2.0); RED CELL DISTRIBUTION WIDTH 17.4 % (11.5-14.5)
--- NOTE | 2017-07-18 16:13 | CP.PCM.CON ---
History of Present Illness - History of Present Illness History of Present Illness: Ortho consultation Dr. Wolf 31 F complains of locking left middle finger x approx 3 months. She is RHD. she is able to reduce it easily, but says it happens several times daily, and is somewhat painful. She has never had this before, no prior injections or PT. She says she is type 1 DM, and has occasional tingling in all her fingers of both hands. No specific numbness to left middle finger. Patient underwent B foot surgery today and had fall today complaining of right sided rib pain. Denies CP/ SOB/dizziness/v/n at this time Prior osteo to left clavicle and sternum. ESRD on HD x 3 years Review of Systems - Review of Systems All systems: reviewed and no additional remarkable complaints except - Constitutional Additional comments: no fever - Cardiovascular Cardiovascular: As Per HPI - Respiratory Respiratory: As Per HPI - Gastrointestinal Gastrointestinal: As Per HPI - Musculoskeletal Musculoskeletal: As Per HPI - Integumentary Integumentary: Sores (feet) - Neurological Neurological: As Per HPI - Hematologic/Lymphatic Hematologic: absent: As Per HPI, Easy Bleeding, Easy Bruising, Lymphadenopathy, Other Past Patient History - Infectious Disease Hx of Infectious Diseases: None - Tetanus Immunizations Tetanus Immunization: Unknown - Past Medical History & Family History Past Medical History?: Yes Past Family History: Reviewed and not pertinent - Past Social History Smoking Status: Never Smoked - CARDIAC Hx Cardiac Disorders: Yes Hx Congestive Heart Failure: Yes Hx Hypercholesterolemia: Yes Hx Hypertension: Yes Hx Peripheral Edema: Yes - PULMONARY Hx Asthma: Yes Hx Bronchitis: Yes Hx Pneumonia: Yes Hx Sleep Apnea: Yes - NEUROLOGICAL Hx Seizures: Yes - HEENT Hx HEENT Problems: Yes Hx Cataracts: Yes Hx Glaucoma: Yes - RENAL Hx Chronic Kidney Disease: Yes Hx Kidney Stones: Yes - ENDOCRINE/METABOLIC Hx Endocrine Disorders: Yes Hx Diabetes Mellitus Type 1: Yes Hx Hyperthyroidism: Yes Hx Hypothyroidism: Yes - HEMATOLOGICAL/ONCOLOGICAL Hx Anemia: Yes - INTEGUMENTARY Hx Dermatological Problems: Yes Other/Comment: DRY ITCHY SKIN ;multiple/generalized dark spots on skin. left toe blister - MUSCULOSKELETAL/RHEUMATOLOGICAL Hx Fractures: Yes (Sep 2012 L foot) Hx Osteomyelitis: Yes (sternum and left clavicle s/p debridement) - GASTROINTESTINAL Hx Gall Bladder Disease: Yes (gallbladder removed) Hx Gastritis: Yes Hx Pancreatitis: Yes (chronic) - PSYCHIATRIC Hx Anxiety: Yes Hx Substance Use: No - SURGICAL HISTORY Hx Cholecystectomy: Yes Hx Coronary Stent: Yes - ANESTHESIA Hx Anesthesia: Yes Hx Anesthesia Reactions: No Hx Malignant Hyperthermia: No Meds Allergies/Adverse Reactions: Allergies Allergy/AdvReac Type Severity Reaction Status Date / Time ketorolac tromethamine Allergy RASH Verified 07/04/17 10:50 [From Toradol] latex Allergy RASH Verified 07/04/17 10:50 morphine Allergy RASH Verified 07/04/17 10:50 tramadol Allergy RASH Verified 07/04/17 10:50 - Medications Medications: Current Medications Clonidine HCl (Catapres) 0.3 mg PO BID [facility] Last Admin: 07/18/17 09:40 Dose: Not Given Diphenhydramine HCl (Benadryl) 50 mg IVP Q4 PRN PRN Reason: itchiness Last Admin: 07/18/17 12:39 Dose: 50 mg Docusate Sodium (Colace) 100 mg PO DAILY [facility] Last Admin: 07/18/17 09:40 Dose: Not Given Ergocalciferol (Drisdol 50,000 Intl Units Cap) 1 cap PO Q7D [facility] Last Admin: 07/15/17 00:45 Dose: 1 cap Hydralazine HCl (Apresoline) 10 mg IVP Q6H PRN PRN Reason: high BP Hydromorphone HCl (Dilaudid) 2 mg IVP Q4H PRN PRN Reason: Pain, severe (8-10) Last Admin: 07/18/17 12:39 Dose: 2 mg Sodium Chloride (Sodium Chloride 0.9%) 1,000 mls @ 50 mls/hr IV .Q20H [facility] Last Admin: 07/18/17 15:21 Dose: Not Given Insulin Aspart (Novolog) 0 unit SC ACHS [facility] PRN Reason: Protocol Last Admin: 07/18/17 11:35 Dose: 8 unit Nifedipine (Procardia Xl) 60 mg PO BID [facility] Last Admin: 07/18/17 09:41 Dose: Not Given Pantoprazole Sodium (Protonix Ec Tab) 40 mg PO DAILY [facility] Last Admin: 07/18/17 09:41 Dose: Not Given Vitamin B Complex/Vit C/Folic Acid (Nephro-Vamshi) 1 tab PO 0800 [facility] Last Admin: 07/18/17 09:41 Dose: Not Given Physical Exam - Constitutional Appears: Well, No Acute Distress - Head Exam Head Exam: ATRAUMATIC - Neck Exam Neck exam: Positive for: Full Rom, Normal Inspection - Respiratory Exam Respiratory Exam: NORMAL BREATHING PATTERN - Cardiovascular Exam Additional comments: Left hand: +radial pulse, cap refill < 2 sec - Expanded Upper Extremities Exam Left Forearm Wrist exam: normal inspection (palpable nodule at flexor crease, minimally tender, can reproduce locking, skin intact, no erythema) Neuro motor exam: finger 2-5 abduction intact, thumb abduction, thumb IP flexion intact, thumb opposition intact, wrist extension intact Neurosensory exam: 2-poit discrimination, median nerve intact, radial nerve intact, ulnar nerve intact Vascular exam: radial pulse - Neurological Exam Neurological exam: Alert, Oriented x3 - Psychiatric Exam Psychiatric exam: Normal Affect, Normal Mood - Skin Skin Exam: Dry, Intact, Normal Color, Warm Results - Vital Signs Recent Vital Signs: Last Vital Signs Temp 97.6 F 07/18/17 12:10 Pulse 91 H 07/18/17 12:36 Resp 18 07/18/17 12:36 BP 152/89 H 07/18/17 12:36 Pulse Ox 99 07/18/17 15:02 - Labs Result Diagrams: 07/18/17 15:45 07/16/17 14:16 Labs: Laboratory Results - last 24 hr 07/17/17 07/17/17 07/18/17 16:18 21:01 06:46 WBC RBC Hgb Hct MCV MCH MCHC RDW Plt Count MPV Neut % (Auto) Lymph % (Auto) Price % (Auto) Eos % (Auto) Baso % (Auto) Neut # Lymph # Price # Eos # Baso # POC Glucose (mg/dL) 381 H 152 H 167 H Urine HCG, Qual 07/18/17 07/18/17 07/18/17 08:07 08:24 11:32 WBC RBC Hgb Hct MCV MCH MCHC RDW Plt Count MPV Neut % (Auto) Lymph % (Auto) Price % (Auto) Eos % (Auto) Baso % (Auto) Neut # Lymph # Price # Eos # Baso # POC Glucose (mg/dL) 250 H 303 H Urine HCG, Qual Negative 07/18/17 15:45 WBC 6.0 RBC 3.18 L Hgb 9.8 L Hct 30.2 L MCV 94.8 MCH 31.0 MCHC 32.6 L RDW 17.4 H Plt Count 247 MPV 8.1 Neut % (Auto) 59.0 Lymph % (Auto) 23.7 Price % (Auto) 6.6 Eos % (Auto) 9.8 H Baso % (Auto) 0.9 Neut # 3.5 Lymph # 1.4 Price # 0.4 Eos # 0.6 Baso # 0.1 POC Glucose (mg/dL) Urine HCG, Qual Assessment & Plan (1) Trigger finger, left middle finger Assessment and Plan: xray consider injection as pt currently on HD with left arm, will not inject at this time. Dr. Shane Nguyễn to inject on Sunday if patient in house. If not, patient to f/u in office d/w Dr. Wolf, agrees with above Status: Acute
[2017-07-18 16:36] LABS: ALB/GLOB RATIO 0.9 (1.0-2.1); BILIRUBIN,TOTAL 0.5 mg/dL (0.2-1.3); CALCIUM 7.8 mg/dl (8.6-10.4); POTASSIUM 4.1 mmol/L (3.6-5.2)
[2017-07-18] MEDS ORDERED: Dextrose 50% SYRINGE Inj (50 ml) IV PRN (17:00)
[2017-07-18] MEDS ORDERED: Glucagon Recombinant 1 mg Inj IM PRN (17:00)
--- NOTE | 2017-07-18 19:38 | CP.PCM.PN ---
Subjective - Date & Time of Evaluation Date of Evaluation: 07/18/17 Time of Evaluation: 11:00 - Subjective Subjective: clinically same Objective - Vital Signs/Intake and Output Vital Signs (last 24 hours): Temp Pulse Resp BP Pulse Ox 98 F 88 18 117/96 H 100 07/18/17 15:00 07/18/17 18:00 07/18/17 18:00 07/18/17 18:00 07/18/17 18:00 Intake and Output: 07/18/17 07/19/17 18:59 06:59 Intake Total 50 Balance 50 - Medications Medications: Current Medications Clonidine HCl (Catapres) 0.3 mg PO BID [facility] Last Admin: 07/18/17 18:24 Dose: Not Given Dextrose (Dextrose 50% Inj) 0 ml IV STAT PRN; Protocol PRN Reason: Hypoglycemia Protocol Dextrose (Glutose 15) 0 gm PO ONCE PRN; Protocol PRN Reason: Hypoglycemia Protocol Diphenhydramine HCl (Benadryl) 50 mg IVP Q4 PRN PRN Reason: itchiness Last Admin: 07/18/17 16:40 Dose: 50 mg Docusate Sodium (Colace) 100 mg PO DAILY [facility] Last Admin: 07/18/17 09:40 Dose: Not Given Ergocalciferol (Drisdol 50,000 Intl Units Cap) 1 cap PO Q7D [facility] Last Admin: 07/15/17 00:45 Dose: 1 cap Glucagon (Glucagen Diagnostic Kit) 0 mg IM STAT PRN; Protocol PRN Reason: Hypoglycemia Protocol Heparin Sodium (Porcine) (Heparin) 5,000 units SC Q8 [facility] Hydralazine HCl (Apresoline) 10 mg IVP Q6H PRN PRN Reason: high BP Hydromorphone HCl (Dilaudid) 2 mg IVP Q4H PRN PRN Reason: Pain, severe (8-10) Last Admin: 07/18/17 16:40 Dose: 2 mg Sodium Chloride (Sodium Chloride 0.9%) 1,000 mls @ 50 mls/hr IV .Q20H [facility] Last Admin: 07/18/17 15:21 Dose: Not Given Dextrose (Dextrose 5% In Water 1000 Ml) 1,000 mls @ 0 mls/hr IV .Q0M PRN; Protocol; Per Protocol PRN Reason: Hypoglycemia Protocol Insulin Aspart (Novolog) 0 unit SC ACHS [facility] PRN Reason: Protocol Last Admin: 07/18/17 16:34 Dose: Not Given Insulin Detemir (Levemir) 12 unit SC Q12 [facility] Nifedipine (Procardia Xl) 60 mg PO BID [facility] Last Admin: 07/18/17 18:25 Dose: Not Given Pantoprazole Sodium (Protonix Ec Tab) 40 mg PO DAILY [facility] Last Admin: 07/18/17 09:41 Dose: Not Given Vitamin B Complex/Vit C/Folic Acid (Nephro-Vamshi) 1 tab PO 0800 [facility] Last Admin: 07/18/17 09:41 Dose: Not Given - Labs Labs: 07/18/17 15:45 07/18/17 16:03 PT 12.2 SECONDS (9.7-12.2) 07/16/17 16:30 INR 1.1 07/16/17 16:30 APTT 33 SECONDS (21-34) 07/16/17 16:30 - Constitutional Appears: Well - Head Exam Head Exam: ATRAUMATIC, NORMAL INSPECTION, NORMOCEPHALIC - Eye Exam Eye Exam: EOMI, Normal appearance, PERRL Pupil Exam: NORMAL ACCOMODATION, PERRL - ENT Exam ENT Exam: Mucous Membranes Moist, Normal Exam - Neck Exam Neck Exam: Full ROM, Normal Inspection. absent: Lymphadenopathy - Respiratory Exam Respiratory Exam: Decreased Breath Sounds - Cardiovascular Exam Cardiovascular Exam: REGULAR RHYTHM, +S1, +S2 - GI/Abdominal Exam GI & Abdominal Exam: Soft, Diminished Bowel Sounds - Rectal Exam Rectal Exam: Deferred
[2017-07-18] MEDS: Insulin Detemir 100 units/ml Vial (Levemir) SC SCH (21:18)
--- NOTE | 2017-07-19 00:24 | CP.PCM.CON ---
History of Present Illness - History of Present Illness History of Present Illness: Patient seen and evaluated Denies chest pain and dyspnea Comfortable 31 F complains of locking left middle finger x approx 3 months. She is RHD. she is able to reduce it easily, but says it happens several times daily, and is somewhat painful. She has never had this before, no prior injections or PT. She says she is type 1 DM, and has occasional tingling in all her fingers of both hands. No specific numbness to left middle finger. Patient underwent B foot surgery today and had fall today complaining of right sided rib pain. Denies CP/ SOB/dizziness/v/n at this time Prior osteo to left clavicle and sternum. ESRD on HD x 3 years Review of Systems - Review of Systems All systems: reviewed and no additional remarkable complaints except - Constitutional Additional comments: no fever - Cardiovascular Cardiovascular: As Per HPI - Respiratory Respiratory: As Per HPI - Gastrointestinal Gastrointestinal: As Per HPI - Musculoskeletal Musculoskeletal: As Per HPI - Integumentary Integumentary: Sores (feet) - Neurological Neurological: As Per HPI - Hematologic/Lymphatic Hematologic: absent: As Per HPI, Easy Bleeding, Easy Bruising, Lymphadenopathy, Other Physical Exam - Constitutional Appears: Well, No Acute Distress - Head Exam Head Exam: ATRAUMATIC - Neck Exam Neck exam: Positive for: Full Rom, Normal Inspection - Respiratory Exam Respiratory Exam: NORMAL BREATHING PATTERN - Cardiovascular Exam Additional comments: Left hand: +radial pulse, cap refill < 2 sec - Expanded Upper Extremities Exam Left Forearm Wrist exam: normal inspection (palpable nodule at flexor crease, minimally tender, can reproduce locking, skin intact, no erythema) Neuro motor exam: finger 2-5 abduction intact, thumb abduction, thumb IP flexion intact, thumb opposition intact, wrist extension intact Neurosensory exam: 2-poit discrimination, median nerve intact, radial nerve intact, ulnar nerve intact Vascular exam: radial pulse - Neurological Exam Neurological exam: Alert, Oriented x3 - Psychiatric Exam Psychiatric exam: Normal Affect, Normal Mood - Skin Skin Exam: Dry, Intact, Normal Color, Warm Past Patient History - Infectious Disease Hx of Infectious Diseases: None - Tetanus Immunizations Tetanus Immunization: Unknown - Past Medical History & Family History Past Medical History?: Yes Past Family History: Reviewed and not pertinent - Past Social History Smoking Status: Never Smoked - CARDIAC Hx Cardiac Disorders: Yes Hx Congestive Heart Failure: Yes Hx Hypercholesterolemia: Yes Hx Hypertension: Yes Hx Peripheral Edema: Yes - PULMONARY Hx Asthma: Yes Hx Bronchitis: Yes Hx Pneumonia: Yes Hx Sleep Apnea: Yes - NEUROLOGICAL Hx Seizures: Yes - HEENT Hx HEENT Problems: Yes Hx Cataracts: Yes Hx Glaucoma: Yes - RENAL Hx Chronic Kidney Disease: Yes Hx Kidney Stones: Yes - ENDOCRINE/METABOLIC Hx Endocrine Disorders: Yes Hx Diabetes Mellitus Type 1: Yes Hx Hyperthyroidism: Yes Hx Hypothyroidism: Yes - HEMATOLOGICAL/ONCOLOGICAL Hx Anemia: Yes - INTEGUMENTARY Hx Dermatological Problems: Yes Other/Comment: DRY ITCHY SKIN ;multiple/generalized dark spots on skin. left toe blister - MUSCULOSKELETAL/RHEUMATOLOGICAL Hx Fractures: Yes (Sep 2012 L foot) Hx Osteomyelitis: Yes (sternum and left clavicle s/p debridement) - GASTROINTESTINAL Hx Gall Bladder Disease: Yes (gallbladder removed) Hx Gastritis: Yes Hx Pancreatitis: Yes (chronic) - PSYCHIATRIC Hx Anxiety: Yes Hx Substance Use: No - SURGICAL HISTORY Hx Cholecystectomy: Yes Hx Coronary Stent: Yes - ANESTHESIA Hx Anesthesia: Yes Hx Anesthesia Reactions: No Hx Malignant Hyperthermia: No Meds Allergies/Adverse Reactions: Allergies Allergy/AdvReac Type Severity Reaction Status Date / Time ketorolac tromethamine Allergy RASH Verified 07/04/17 10:50 [From Toradol] latex Allergy RASH Verified 07/04/17 10:50 morphine Allergy RASH Verified 07/04/17 10:50 tramadol Allergy RASH Verified 07/04/17 10:50 - Medications Medications: Current Medications Clonidine HCl (Catapres) 0.3 mg PO BID [facility] Last Admin: 07/18/17 18:24 Dose: Not Given Dextrose (Dextrose 50% Inj) 0 ml IV STAT PRN; Protocol PRN Reason: Hypoglycemia Protocol Dextrose (Glutose 15) 0 gm PO ONCE PRN; Protocol PRN Reason: Hypoglycemia Protocol Diphenhydramine HCl (Benadryl) 50 mg IVP Q4 PRN PRN Reason: itchiness Last Admin: 07/18/17 21:24 Dose: 50 mg Docusate Sodium (Colace) 100 mg PO DAILY [facility] Last Admin: 07/18/17 09:40 Dose: Not Given Ergocalciferol (Drisdol 50,000 Intl Units Cap) 1 cap PO Q7D [facility] Last Admin: 07/15/17 00:45 Dose: 1 cap Glucagon (Glucagen Diagnostic Kit) 0 mg IM STAT PRN; Protocol PRN Reason: Hypoglycemia Protocol Heparin Sodium (Porcine) (Heparin) 5,000 units SC Q8 [facility] Hydralazine HCl (Apresoline) 10 mg IVP Q6H PRN PRN Reason: high BP Hydromorphone HCl (Dilaudid) 2 mg IVP Q4H PRN PRN Reason: Pain, severe (8-10) Last Admin: 07/18/17 21:25 Dose: 2 mg Sodium Chloride (Sodium Chloride 0.9%) 1,000 mls @ 50 mls/hr IV .Q20H [facility] Last Admin: 07/18/17 15:21 Dose: Not Given Dextrose (Dextrose 5% In Water 1000 Ml) 1,000 mls @ 0 mls/hr IV .Q0M PRN; Protocol; Per Protocol PRN Reason: Hypoglycemia Protocol Insulin Aspart (Novolog) 0 unit SC ACHS [facility] PRN Reason: Protocol Last Admin: 07/18/17 21:18 Dose: Not Given Insulin Detemir (Levemir) 12 unit SC Q12 [facility] Last Admin: 07/18/17 21:18 Dose: Not Given Nifedipine (Procardia Xl) 60 mg PO BID [facility] Last Admin: 07/18/17 18:25 Dose: Not Given Pantoprazole Sodium (Protonix Ec Tab) 40 mg PO DAILY [facility] Last Admin: 07/18/17 09:41 Dose: Not Given Vitamin B Complex/Vit C/Folic Acid (Nephro-Vamshi) 1 tab PO 0800 [facility] Last Admin: 07/18/17 09:41 Dose: Not Given Results - Vital Signs Recent Vital Signs: Last Vital Signs Temp 98 F 07/18/17 15:00 Pulse 88 07/18/17 18:00 Resp 18 07/18/17 18:00 BP 117/96 H 07/18/17 18:00 Pulse Ox 100 07/18/17 18:00 - Labs Result Diagrams: 07/20/17 10:10 07/20/17 10:10 Labs: Laboratory Results - last 24 hr 07/18/17 07/18/17 07/18/17 06:46 08:07 08:24 WBC RBC Hgb Hct MCV MCH MCHC RDW Plt Count MPV Neut % (Auto) Lymph % (Auto) Collin % (Auto) Eos % (Auto) Baso % (Auto) Neut # Lymph # Collin # Eos # Baso # Sodium Potassium Chloride Carbon Dioxide Anion Gap BUN Creatinine Est GFR ( Amer) Est GFR (Non-Af Amer) POC Glucose (mg/dL) 167 H 250 H Random Glucose Calcium Total Bilirubin AST ALT Alkaline Phosphatase Total Protein Albumin Globulin Albumin/Globulin Ratio Beta HCG, Quant Urine HCG, Qual Negative 07/18/17 07/18/17 07/18/17 11:32 15:45 16:03 WBC 6.0 RBC 3.18 L Hgb 9.8 L Hct 30.2 L MCV 94.8 MCH 31.0 MCHC 32.6 L RDW 17.4 H Plt Count 247 MPV 8.1 Neut % (Auto) 59.0 Lymph % (Auto) 23.7 Collin % (Auto) 6.6 Eos % (Auto) 9.8 H Baso % (Auto) 0.9 Neut # 3.5 Lymph # 1.4 Collin # 0.4 Eos # 0.6 Baso # 0.1 Sodium Potassium Chloride Carbon Dioxide Anion Gap BUN Creatinine Est GFR ( Amer) Est GFR (Non-Af Amer) POC Glucose (mg/dL) 303 H Random Glucose Calcium Total Bilirubin AST ALT Alkaline Phosphatase Total Protein Albumin Globulin Albumin/Globulin Ratio Beta HCG, Quant < 2.39 Urine HCG, Qual 07/18/17 07/18/17 16:03 16:34 WBC RBC Hgb Hct MCV MCH MCHC RDW Plt Count MPV Neut % (Auto) Lymph % (Auto) Collin % (Auto) Eos % (Auto) Baso % (Auto) Neut # Lymph # Collin # Eos # Baso # Sodium 135 Potassium 4.1 Chloride 94 L Carbon Dioxide 28 Anion Gap 17 BUN 44 H Creatinine 7.6 H* Est GFR ( Amer) 8 Est GFR (Non-Af Amer) 6 POC Glucose (mg/dL) 70 Random Glucose 65 Calcium 7.8 L Total Bilirubin 0.5 AST 25 ALT 33 Alkaline Phosphatase 139 H Total Protein 8.0 Albumin 3.8 Globulin 4.2 H Albumin/Globulin Ratio 0.9 L Beta HCG, Quant Urine HCG, Qual Assessment & Plan - Assessment and Plan (Free Text) Assessment: Right Rib Injury CODE STAR this AM - Pt fell on right ribs, denies loss of consciousness/headache/chest pain STAT CXR and Right ribs - negative for acute fracture per radiologist wet read ( official report to follow) Patient had been refusing telemetry monitoring, now accepting post-fall Right Foot Pain 3rd digit right foot pain Dr. Cardenas consulted - podiatry for debridement today depending on results of stat xrays/pt condition - no signs of infection, pt afebrile Pre-op clearance EKG (07/16/17): NSR, LVH, No acute ST/T wave changes CXR- mild interstitial prominence may reflect infection or edema. Cardiomegaly PT/PTT normal Urine negative on admission (07/12/17), repeated serum Boswell Score: 0.56% estimated probable risk for nikhli-operative [place]/cardiac arrest Consult Cardio- Dr. Santos- cleared for podiatry procedure Diabetic gastroparesis Admit on 07/13 for abd pain, N/V Pt reports abd pain resolved BG with wide swings, due to patient irregular, poor eating habits Accuchecks QAC&HS Novolog ISS Levemir 12 units SQ Q12H (hold as pt NPO after midnight) Aspart 6 units SC AC (hold as pt NPO after midnight) Zofran 4 mg IV Q6 PRN Reglan 10 mg IV Q6 PRN Diluadid 2mg IV Q4H PRN Benadryl 25mg IV Q4H PRN for dialysis Type Two Diabetes Mellitus BG with wide swings, due to patient irregular, poor eating habits Accuchecks QAC&HS Novolog ISS Levemir 12 units SQ Q12H (HOLD) Aspart 6 units SC AC (HOLD) - will restart 07/18 after surgical procedure ESRD on HD- MWF Consult: Dr. Beckman (help appreciated) Phoslo 667mg PO TID Nephro-Vamshi Ergocalciferol 50k units for Vit D deficiency Hypertension Hypertensive urgency on admission - Max 213/123 - Pressures with much better control recently, but elevated this AM understandably after fall Clonidine 0.3 mg PO BID Procardia XL 60 mg PO Q12H Hydralazine 10mg IV Q6H if SBP > 160 Transplant Consideration [facility] Hepatitis and HIV panel negative Trigger Finger Left third digit Consultation, Dr. Wolf, help appreciated -f/u reccs Hx of hypertensive cardiomyopathy KAMRAN 03/02/17: No evidence of endocarditis. LVEF WNL. Cardiac Catheterization on prior admission revealed patent coronaries; hypertensive cardiomyopahy EF: 45 Clonidine 0.3 mg PO BID Procardia XL 60 mg PO Q12H Prophylactic Measure Heparin 5000 units SQ Q12H (HOLD, can restart after podiatric surgery) Protonix 40mg PO Daily [facility]
[2017-07-19] MEDS: DiphenhydrAMINE 50 mg/ml Inj IVP PRN ×6 (01:23→21:49)
--- NOTE | 2017-07-19 06:52 | CP.PCM.PN ---
Subjective - Date & Time of Evaluation Date of Evaluation: 07/19/17 Time of Evaluation: 12:34 - Subjective Subjective: PGY2 Note for Dr. Edilia Sexton Medicine; all management as per Dr. Edilia Sexton Pt seen and examined at bedside this AM; denies any acute events or acute complaints; patient is desiring to go home. Denies fevers/chills, MCDOWELL, CP, SOb, abdominal pain, n/v/d, dysuria/freq/urg, or lower extremity pain/swelling. Objective - Vital Signs/Intake and Output Vital Signs (last 24 hours): Temp Pulse Resp BP Pulse Ox 97.7 F 99 H 20 156/79 H 98 07/18/17 23:30 07/18/17 23:30 07/18/17 23:30 07/18/17 23:30 07/18/17 23:30 Intake and Output: 07/18/17 07/19/17 18:59 06:59 Intake Total 50 240 Balance 50 240 - Medications Medications: Current Medications Clonidine HCl (Catapres) 0.3 mg PO BID [facility] Last Admin: 07/18/17 18:24 Dose: Not Given Dextrose (Dextrose 50% Inj) 0 ml IV STAT PRN; Protocol PRN Reason: Hypoglycemia Protocol Dextrose (Glutose 15) 0 gm PO ONCE PRN; Protocol PRN Reason: Hypoglycemia Protocol Diphenhydramine HCl (Benadryl) 50 mg IVP Q4 PRN PRN Reason: itchiness Last Admin: 07/19/17 05:21 Dose: 50 mg Docusate Sodium (Colace) 100 mg PO DAILY [facility] Last Admin: 07/18/17 09:40 Dose: Not Given Ergocalciferol (Drisdol 50,000 Intl Units Cap) 1 cap PO Q7D [facility] Last Admin: 07/15/17 00:45 Dose: 1 cap Glucagon (Glucagen Diagnostic Kit) 0 mg IM STAT PRN; Protocol PRN Reason: Hypoglycemia Protocol Heparin Sodium (Porcine) (Heparin) 5,000 units SC Q8 [facility] Last Admin: 07/19/17 05:24 Dose: Not Given Hydralazine HCl (Apresoline) 10 mg IVP Q6H PRN PRN Reason: high BP Hydromorphone HCl (Dilaudid) 2 mg IVP Q4H PRN PRN Reason: Pain, severe (8-10) Last Admin: 07/19/17 05:21 Dose: 2 mg Sodium Chloride (Sodium Chloride 0.9%) 1,000 mls @ 50 mls/hr IV .Q20H [facility] Last Admin: 07/18/17 15:21 Dose: Not Given Dextrose (Dextrose 5% In Water 1000 Ml) 1,000 mls @ 0 mls/hr IV .Q0M PRN; Protocol; Per Protocol PRN Reason: Hypoglycemia Protocol Insulin Aspart (Novolog) 0 unit SC ACHS [facility] PRN Reason: Protocol Last Admin: 07/18/17 21:18 Dose: Not Given Insulin Detemir (Levemir) 12 unit SC Q12 [facility] Last Admin: 07/18/17 21:18 Dose: Not Given Nifedipine (Procardia Xl) 60 mg PO BID [facility] Last Admin: 07/18/17 18:25 Dose: Not Given Pantoprazole Sodium (Protonix Ec Tab) 40 mg PO DAILY [facility] Last Admin: 07/18/17 09:41 Dose: Not Given Vitamin B Complex/Vit C/Folic Acid (Nephro-Vamshi) 1 tab PO 0800 [facility] Last Admin: 07/18/17 09:41 Dose: Not Given - Labs Labs: 07/18/17 15:45 07/18/17 16:03 PT 12.2 SECONDS (9.7-12.2) 07/16/17 16:30 INR 1.1 07/16/17 16:30 APTT 33 SECONDS (21-34) 07/16/17 16:30 - Constitutional Appears: Non-toxic - Head Exam Head Exam: ATRAUMATIC - Eye Exam Eye Exam: EOMI Pupil Exam: PERRL - ENT Exam ENT Exam: Mucous Membranes Moist - Neck Exam Neck Exam: Full ROM - Respiratory Exam Respiratory Exam: Clear to Ausculation Bilateral - Cardiovascular Exam Cardiovascular Exam: REGULAR RHYTHM - GI/Abdominal Exam GI & Abdominal Exam: Soft - Extremities Exam Extremities Exam: absent: Calf Tenderness - Back Exam Back Exam: absent: CVA tenderness (L), CVA tenderness (R) - Neurological Exam Neurological Exam: Alert - Psychiatric Exam Psychiatric exam: Normal Affect, Normal Mood - Skin Skin Exam: Warm Assessment and Plan - Assessment and Plan (Free Text) Assessment: Right Rib Injury;resolved CODE STAR 07/18 - Pt fell on right ribs, denies loss of consciousness/headache/chest pain STAT CXR and Right ribs - negative for acute fracture per radiologist wet read ( official report to follow) Patient had been refusing telemetry monitoring, now accepting post-fall Right Foot Pain; resolving 3rd digit right foot pain Dr. Cardenas consulted - podiatry for debridement today depending on results of stat xrays/pt condition - no signs of infection, pt afebrile Pre-op clearance EKG (07/16/17): NSR, LVH, No acute ST/T wave changes CXR- mild interstitial prominence may reflect infection or edema. Cardiomegaly PT/PTT normal Urine negative on admission (07/12/17), repeated serum Boswell Score: 0.56% estimated probable risk for nikhil-operative [place]/cardiac arrest Consult Cardio- Dr. Santos- cleared for podiatry procedure Diabetic gastroparesis Admit on 07/13 for abd pain, N/V Pt reports abd pain resolved BG with wide swings, due to patient irregular, poor eating habits Accuchecks QAC&HS Novolog ISS Levemir 12 units SQ Q12H (hold as pt NPO after midnight) Aspart 6 units SC AC (hold as pt NPO after midnight) Zofran 4 mg IV Q6 PRN Reglan 10 mg IV Q6 PRN Diluadid 2mg IV Q4H PRN Benadryl 25mg IV Q4H PRN for dialysis Type Two Diabetes Mellitus BG with wide swings, due to patient irregular, poor eating habits Accuchecks QAC&HS Novolog ISS Levemir 12 units SQ Q12H (HOLD) Aspart 6 units SC AC (HOLD) - will restart 07/18 after surgical procedure ESRD on HD- MWF Consult: Dr. Beckman (help appreciated) Phoslo 667mg PO TID Nephro-Vamshi Ergocalciferol 50k units for Vit D deficiency Hypertension Hypertensive urgency on admission - Max 213/123 - Pressures with much better control recently, but elevated this AM understandably after fall Clonidine 0.3 mg PO BID Procardia XL 60 mg PO Q12H Hydralazine 10mg IV Q6H if SBP > 160 Transplant Consideration Social work reports [facility] needs workup for possible kidney transplant Hepatitis and HIV panel negative Trigger Finger Left third digit Consultation, Dr. Wolf, help appreciated -f/u reccs Hx of hypertensive cardiomyopathy KAMRAN 03/02/17: No evidence of endocarditis. LVEF WNL. Cardiac Catheterization on prior admission revealed patent coronaries; hypertensive cardiomyopahy EF: 45 Clonidine 0.3 mg PO BID Procardia XL 60 mg PO Q12H Prophylactic Measure Heparin 5000 units SQ Q12H (HOLD, can restart after podiatric surgery) Protonix 40mg PO Daily [facility] The patient is stable for d/c as per Dr. Edilia Sexton. All medical management per Dr. Sexton
[2017-07-19] MEDS: Multivitamin Vitamin B Complex (Nephro-Vite) Tab PO SCH (08:19)
[2017-07-19] MEDS: (Novolog) Insulin Aspart, Recombinant 100 u/ml 10 ml vial SC SCH ×4 (08:20→21:41)
--- NOTE | 2017-07-19 09:00 | CP.PCM.PN ---
Subjective - Date & Time of Evaluation Date of Evaluation: 07/19/17 Time of Evaluation: 09:00 - Subjective Subjective: 31 year odl female seen at bedside POD#1 bilateral 3rd digit total nail avulsions and left great toe partial nail avulsion, all with matrixectomy. Pt had no acute overnight events. She reports the outer dressings were too tight post-op and had removed them, nursing staff reapplied as indicated. Pain is well controlled at this time. She denies f/c/cp/sob/n/v. Objective - Vital Signs/Intake and Output Vital Signs (last 24 hours): Temp Pulse Resp BP Pulse Ox 98.8 F 101 H 18 156/79 H 100 07/19/17 08:00 07/19/17 08:00 07/19/17 08:00 07/18/17 23:30 07/19/17 08:00 Intake and Output: 07/19/17 07/19/17 06:59 18:59 Intake Total 240 Balance 240 - Medications Medications: Current Medications Clonidine HCl (Catapres) 0.3 mg PO BID [facility] Last Admin: 07/18/17 18:24 Dose: Not Given Dextrose (Dextrose 50% Inj) 0 ml IV STAT PRN; Protocol PRN Reason: Hypoglycemia Protocol Dextrose (Glutose 15) 0 gm PO ONCE PRN; Protocol PRN Reason: Hypoglycemia Protocol Diphenhydramine HCl (Benadryl) 50 mg IVP Q4 PRN PRN Reason: itchiness Last Admin: 07/19/17 05:21 Dose: 50 mg Docusate Sodium (Colace) 100 mg PO DAILY [facility] Last Admin: 07/18/17 09:40 Dose: Not Given Ergocalciferol (Drisdol 50,000 Intl Units Cap) 1 cap PO Q7D [facility] Last Admin: 07/15/17 00:45 Dose: 1 cap Glucagon (Glucagen Diagnostic Kit) 0 mg IM STAT PRN; Protocol PRN Reason: Hypoglycemia Protocol Heparin Sodium (Porcine) (Heparin) 5,000 units SC Q8 [facility] Last Admin: 07/19/17 05:24 Dose: Not Given Hydralazine HCl (Apresoline) 10 mg IVP Q6H PRN PRN Reason: high BP Hydromorphone HCl (Dilaudid) 2 mg IVP Q4H PRN PRN Reason: Pain, severe (8-10) Last Admin: 07/19/17 05:21 Dose: 2 mg Sodium Chloride (Sodium Chloride 0.9%) 1,000 mls @ 50 mls/hr IV .Q20H [facility] Last Admin: 07/18/17 15:21 Dose: Not Given Dextrose (Dextrose 5% In Water 1000 Ml) 1,000 mls @ 0 mls/hr IV .Q0M PRN; Protocol; Per Protocol PRN Reason: Hypoglycemia Protocol Insulin Aspart (Novolog) 0 unit SC ACHS [facility] PRN Reason: Protocol Last Admin: 07/19/17 08:20 Dose: 4 unit Insulin Detemir (Levemir) 12 unit SC Q12 [facility] Last Admin: 07/18/17 21:18 Dose: Not Given Nifedipine (Procardia Xl) 60 mg PO BID [facility] Last Admin: 07/18/17 18:25 Dose: Not Given Pantoprazole Sodium (Protonix Ec Tab) 40 mg PO DAILY [facility] Last Admin: 07/18/17 09:41 Dose: Not Given Vitamin B Complex/Vit C/Folic Acid (Nephro-Vamshi) 1 tab PO 0800 [facility] Last Admin: 07/19/17 08:19 Dose: 1 tab - Labs Labs: 07/18/17 15:45 07/18/17 16:03 PT 12.2 SECONDS (9.7-12.2) 07/16/17 16:30 INR 1.1 07/16/17 16:30 APTT 33 SECONDS (21-34) 07/16/17 16:30 - Constitutional Appears: Well, Non-toxic, No Acute Distress - Extremities Exam Additional comments: Dressings clean dry and intact. All sutures are intact at all surgical site, No active drainage noted. B/L 3rd digit swelling decreased. Minor tenderness to palaption to left 3rd digit exposed nail bed. No acute signs of infection to all 3 surgical sites. - Neurological Exam Neurological Exam: Alert, Awake, Oriented x3 - Psychiatric Exam Psychiatric exam: Normal Affect, Normal Mood Assessment and Plan - Assessment and Plan (Free Text) Assessment: 31 year old female seen POD #1 for bilateral 3rd digit nail avulsion and left medial hallux nail avulsions Plan: Pt seen and evaluated. Chart, labs, and vitals reviewed. Afebrile, absent leukocytosis. Redressed both feet with xeroform, DSD, loose BINU Pt instructed to follow up with Treva Chen 07/30 2pm in office. Pt to leave dressing intact until that time. Pt can ambulate full weightbearing bilaterally with use of post-op shoes bilaterally. Pt is stable from podiatric standpoint for discharge.
--- NOTE | 2017-07-19 09:28 | RAD ---
PROCEDURE: Left Hand Radiographs. HISTORY: left middle trigger finger COMPARISON: None. FINDINGS: BONES: Normal. No fracture. JOINTS: Normal. No osteoarthritic changes. SOFT TISSUES: Arterial vascular calcifications OTHER FINDINGS: None. IMPRESSION: No fracture or lytic lesion. No dislocation. Overall alignment on these images is unremarkable. Trigger finger possibly intermittent. 31-year-old patient with extensive arterial vascular calcifications -correlate clinically
[2017-07-19] MEDS: NIFEdipine 60 mg ER Tab PO SCH ×2 (09:33→18:00)
[2017-07-19] MEDS: Pantoprazole 40 mg EC Tab PO SCH (09:33)
[2017-07-19] MEDS: Insulin Detemir 100 units/ml Vial (Levemir) SC SCH ×2 (09:34→21:45)
--- NOTE | 2017-07-19 11:57 | CP.PCM.PN ---
Subjective - Date & Time of Evaluation Date of Evaluation: 07/19/17 Time of Evaluation: 11:54 - Subjective Subjective: PT DISCUSSED DURING MORNING ROUNDS. PER DR. Edilia CARVALHO D/C PT HOME TODAY. I NOTIFIED DR. KISER (RESIDENT COVERING THIS PT). I DISCUSSED D/C PLAN WITH PODIATRY RESIDENT DR. SANZ; HE HAS GIVEN WOUND CARE AND F/U ORDERS (SEE BELOW ) AND PT WILL BE ABLE TO GO HOME THIS AFTERNOON AFTER SHE IS SEEN BY HIM AND DRESSING IS REPLACED (PT REMOVED DRESSING LAST NIGHT). PER DR. Edilia CARVALHO, PT NOT TO RECEIVE RX FOR NARCOTICS. TO CONTINUE ALL HOME MEDS USUAL. SHE CAN F/U IN HIS OFFICE WITHIN 1 WEEK AND NEEDED. PT VERBALIZES UNDERSTANDING OF ALL D /C, F/U, AND WOUND CARE. PLEASE NOTE THAT PT IS A HIGH RISK FOR NONCOMPLIANCE BASED ON HER HISTORY. FOLLOW UP WITH DR. Yloy CARVALHO IN THE OFFICE WITHIN 1 WEEK OF DISCHARGE---CALL THE OFFICE TO MAKE YOUR APPT. FOLLOW UP WITH DR. MONROE (ORTHOPEDICS) IN THE OFFICE WITHIN 1-2 WEEKS FOR YOUR LOCKING FINGER---CALL THE OFFICE TO MAKE YOUR APPT. FOLLOW UP WITH DR. LARIOS IN THE OFFICE IN 1 WEEK---CALL FOR APPT TIME. PER PODIATRY RECOMMENDATIONS: MAINTAIN THE DRESSING THAT HAS BEEN APPLIED TODAY ON FOR 3 DAYS (TAKE IT OFF ON 07/22/17); ON THAT DAY YOU MAY START SOAKING YOUR FOOT IN EPSOM SALT WITH WARM WATER ( DO THIS DAILY FOR 4 DAYS; FROM 07/22/17 UNTIL 07/26/17); AFTER EACH SOAK YOU CAN COVER THE AFFECTED AREA WITH A BANDAID AND MAKE SURE YOU FOLLOW UP WITH DR. LARIOS. CONTINUE YOUR DIALYSIS USUAL. DO NOT SKIP ANY DAYS. TAKE YOUR HOME MEDICATIONS USUAL. NO NEW PRESCRIPTIONS GIVEN TODAY PER DR. Edilia CARVALHO. FOR ANY OTHER QUESTIONS, CONTACT DR. CARVALHO'S OFFICE. Objective - Vital Signs/Intake and Output Vital Signs (last 24 hours): Temp Pulse Resp BP Pulse Ox 98.8 F 101 H 18 156/79 H 100 07/19/17 08:00 07/19/17 08:00 07/19/17 08:00 07/18/17 23:30 07/19/17 08:00 Intake and Output: 07/19/17 07/19/17 06:59 18:59 Intake Total 240 Balance 240 - Medications Medications: Current Medications Clonidine HCl (Catapres) 0.3 mg PO BID [facility] Last Admin: 07/19/17 09:33 Dose: 0.3 mg Dextrose (Dextrose 50% Inj) 0 ml IV STAT PRN; Protocol PRN Reason: Hypoglycemia Protocol Dextrose (Glutose 15) 0 gm PO ONCE PRN; Protocol PRN Reason: Hypoglycemia Protocol Diphenhydramine HCl (Benadryl) 50 mg IVP Q4 PRN PRN Reason: itchiness Last Admin: 07/19/17 09:37 Dose: 50 mg Docusate Sodium (Colace) 100 mg PO DAILY [facility] Last Admin: 07/19/17 09:33 Dose: 100 mg Ergocalciferol (Drisdol 50,000 Intl Units Cap) 1 cap PO Q7D [facility] Last Admin: 07/15/17 00:45 Dose: 1 cap Glucagon (Glucagen Diagnostic Kit) 0 mg IM STAT PRN; Protocol PRN Reason: Hypoglycemia Protocol Heparin Sodium (Porcine) (Heparin) 5,000 units SC Q8 [facility] Last Admin: 07/19/17 05:24 Dose: Not Given Hydralazine HCl (Apresoline) 10 mg IVP Q6H PRN PRN Reason: high BP Hydromorphone HCl (Dilaudid) 2 mg IVP Q4H PRN PRN Reason: Pain, severe (8-10) Last Admin: 07/19/17 09:37 Dose: 2 mg Sodium Chloride (Sodium Chloride 0.9%) 1,000 mls @ 50 mls/hr IV .Q20H [facility] Last Admin: 07/18/17 15:21 Dose: Not Given Dextrose (Dextrose 5% In Water 1000 Ml) 1,000 mls @ 0 mls/hr IV .Q0M PRN; Protocol; Per Protocol PRN Reason: Hypoglycemia Protocol Insulin Aspart (Novolog) 0 unit SC ACHS [facility] PRN Reason: Protocol Last Admin: 07/19/17 11:43 Dose: Not Given Insulin Detemir (Levemir) 12 unit SC Q12 [facility] Last Admin: 07/19/17 09:34 Dose: 12 unit Nifedipine (Procardia Xl) 60 mg PO BID [facility] Last Admin: 07/19/17 09:33 Dose: 60 mg Pantoprazole Sodium (Protonix Ec Tab) 40 mg PO DAILY [facility] Last Admin: 07/19/17 09:33 Dose: 40 mg Vitamin B Complex/Vit C/Folic Acid (Nephro-Vamshi) 1 tab PO 0800 [facility] Last Admin: 07/19/17 08:19 Dose: 1 tab - Labs Labs: 07/18/17 15:45 07/18/17 16:03 PT 12.2 SECONDS (9.7-12.2) 07/16/17 16:30 INR 1.1 07/16/17 16:30 APTT 33 SECONDS (21-34) 07/16/17 16:30
--- NOTE | 2017-07-19 18:10 | CP.PCM.PN ---
Subjective - Date & Time of Evaluation Date of Evaluation: 07/19/17 Time of Evaluation: 07:40 - Subjective Subjective: clinically same Objective - Vital Signs/Intake and Output Vital Signs (last 24 hours): Temp Pulse Resp BP Pulse Ox 98.7 F 85 20 152/79 H 100 07/19/17 16:33 07/19/17 16:33 07/19/17 16:33 07/19/17 16:33 07/19/17 16:33 Intake and Output: 07/19/17 07/19/17 06:59 18:59 Intake Total 240 Balance 240 - Medications Medications: Current Medications Clonidine HCl (Catapres) 0.3 mg PO BID [facility] Last Admin: 07/19/17 17:36 Dose: 0.3 mg Dextrose (Dextrose 50% Inj) 0 ml IV STAT PRN; Protocol PRN Reason: Hypoglycemia Protocol Dextrose (Glutose 15) 0 gm PO ONCE PRN; Protocol PRN Reason: Hypoglycemia Protocol Diphenhydramine HCl (Benadryl) 50 mg IVP Q4 PRN PRN Reason: itchiness Last Admin: 07/19/17 17:37 Dose: 50 mg Docusate Sodium (Colace) 100 mg PO DAILY [facility] Last Admin: 07/19/17 09:33 Dose: 100 mg Ergocalciferol (Drisdol 50,000 Intl Units Cap) 1 cap PO Q7D [facility] Last Admin: 07/15/17 00:45 Dose: 1 cap Glucagon (Glucagen Diagnostic Kit) 0 mg IM STAT PRN; Protocol PRN Reason: Hypoglycemia Protocol Heparin Sodium (Porcine) (Heparin) 5,000 units SC Q8 [facility] Last Admin: 07/19/17 14:04 Dose: Not Given Hydralazine HCl (Apresoline) 10 mg IVP Q6H PRN PRN Reason: high BP Hydromorphone HCl (Dilaudid) 2 mg IVP Q4H PRN PRN Reason: Pain, severe (8-10) Last Admin: 07/19/17 17:38 Dose: 2 mg Sodium Chloride (Sodium Chloride 0.9%) 1,000 mls @ 50 mls/hr IV .Q20H [facility] Last Admin: 07/18/17 15:21 Dose: Not Given Dextrose (Dextrose 5% In Water 1000 Ml) 1,000 mls @ 0 mls/hr IV .Q0M PRN; Protocol; Per Protocol PRN Reason: Hypoglycemia Protocol Insulin Aspart (Novolog) 0 unit SC ACHS [facility] PRN Reason: Protocol Last Admin: 07/19/17 11:43 Dose: Not Given Insulin Detemir (Levemir) 12 unit SC Q12 [facility] Last Admin: 07/19/17 09:34 Dose: 12 unit Nifedipine (Procardia Xl) 60 mg PO BID [facility] Last Admin: 07/19/17 09:33 Dose: 60 mg Pantoprazole Sodium (Protonix Ec Tab) 40 mg PO DAILY [facility] Last Admin: 07/19/17 09:33 Dose: 40 mg Vitamin B Complex/Vit C/Folic Acid (Nephro-Vamshi) 1 tab PO 0800 [facility] Last Admin: 07/19/17 08:19 Dose: 1 tab - Labs Labs: 07/18/17 15:45 07/18/17 16:03 PT 12.2 SECONDS (9.7-12.2) 07/16/17 16:30 INR 1.1 07/16/17 16:30 APTT 33 SECONDS (21-34) 07/16/17 16:30 - Constitutional Appears: Well - Head Exam Head Exam: ATRAUMATIC, NORMAL INSPECTION, NORMOCEPHALIC - Eye Exam Eye Exam: EOMI, Normal appearance, PERRL Pupil Exam: NORMAL ACCOMODATION, PERRL - ENT Exam ENT Exam: Mucous Membranes Moist, Normal Exam - Neck Exam Neck Exam: Full ROM, Normal Inspection. absent: Lymphadenopathy - Respiratory Exam Respiratory Exam: Decreased Breath Sounds - Cardiovascular Exam Cardiovascular Exam: REGULAR RHYTHM, +S1, +S2 - GI/Abdominal Exam GI & Abdominal Exam: Soft, Diminished Bowel Sounds - Rectal Exam Rectal Exam: Deferred
--- NOTE | 2017-07-19 21:08 | CP.PCM.PN ---
Subjective - Date & Time of Evaluation Date of Evaluation: 07/19/17 Time of Evaluation: 15:00 - Subjective Subjective: SEEN ON RENAL F/U ALL PREVIOUS EMR REVIEWED PT IS ON HD M W F AND SAT FEELS BETTER Objective - Vital Signs/Intake and Output Vital Signs (last 24 hours): Temp Pulse Resp BP Pulse Ox 98.7 F 85 20 152/79 H 100 07/19/17 16:33 07/19/17 16:33 07/19/17 16:33 07/19/17 16:33 07/19/17 16:33 - Medications Medications: Current Medications Clonidine HCl (Catapres) 0.3 mg PO BID [facility] Last Admin: 07/19/17 17:36 Dose: 0.3 mg Dextrose (Dextrose 50% Inj) 0 ml IV STAT PRN; Protocol PRN Reason: Hypoglycemia Protocol Dextrose (Glutose 15) 0 gm PO ONCE PRN; Protocol PRN Reason: Hypoglycemia Protocol Diphenhydramine HCl (Benadryl) 50 mg IVP Q4 PRN PRN Reason: itchiness Last Admin: 07/19/17 17:37 Dose: 50 mg Docusate Sodium (Colace) 100 mg PO DAILY [facility] Last Admin: 07/19/17 09:33 Dose: 100 mg Ergocalciferol (Drisdol 50,000 Intl Units Cap) 1 cap PO Q7D [facility] Last Admin: 07/15/17 00:45 Dose: 1 cap Glucagon (Glucagen Diagnostic Kit) 0 mg IM STAT PRN; Protocol PRN Reason: Hypoglycemia Protocol Heparin Sodium (Porcine) (Heparin) 5,000 units SC Q8 [facility] Last Admin: 07/19/17 14:04 Dose: Not Given Hydralazine HCl (Apresoline) 10 mg IVP Q6H PRN PRN Reason: high BP Hydromorphone HCl (Dilaudid) 2 mg IVP Q4H PRN PRN Reason: Pain, severe (8-10) Last Admin: 07/19/17 17:38 Dose: 2 mg Sodium Chloride (Sodium Chloride 0.9%) 1,000 mls @ 50 mls/hr IV .Q20H [facility] Last Admin: 07/18/17 15:21 Dose: Not Given Dextrose (Dextrose 5% In Water 1000 Ml) 1,000 mls @ 0 mls/hr IV .Q0M PRN; Protocol; Per Protocol PRN Reason: Hypoglycemia Protocol Insulin Aspart (Novolog) 0 unit SC ACHS [facility] PRN Reason: Protocol Last Admin: 07/19/17 16:30 Dose: 2 unit Insulin Detemir (Levemir) 12 unit SC Q12 [facility] Last Admin: 07/19/17 09:34 Dose: 12 unit Nifedipine (Procardia Xl) 60 mg PO BID [facility] Last Admin: 07/19/17 18:00 Dose: 60 mg Pantoprazole Sodium (Protonix Ec Tab) 40 mg PO DAILY [facility] Last Admin: 07/19/17 09:33 Dose: 40 mg Vitamin B Complex/Vit C/Folic Acid (Nephro-Vamshi) 1 tab PO 0800 [facility] Last Admin: 07/19/17 08:19 Dose: 1 tab - Labs Labs: 07/18/17 15:45 07/18/17 16:03 PT 12.2 SECONDS (9.7-12.2) 07/16/17 16:30 INR 1.1 07/16/17 16:30 APTT 33 SECONDS (21-34) 07/16/17 16:30 Assessment and Plan - Assessment and Plan (Free Text) Assessment: ESRD ON HD MWF@SAT .. TO BE C/O ANEMIA OF CKD .. H/H STABLE MMP P C/O CURRENT CARE C/O PRESENT MANAGEMENT PT WAS REASSURED
[2017-07-19] MEDS ORDERED: HYDROmorphone 1 mg/ml ISec IVP STA (22:25)
[2017-07-20] MEDS: DiphenhydrAMINE 50 mg/ml Inj IVP PRN ×3 (01:26→09:39)
[2017-07-20] MEDS: HYDROmorphone 1 mg/ml ISec IVP PRN ×4 (01:27→13:44)
--- NOTE | 2017-07-20 07:48 | CP.PCM.PN ---
Subjective - Date & Time of Evaluation Date of Evaluation: 07/20/17 Time of Evaluation: 07:44 - Subjective Subjective: PGY2 Note for Dr. Sexton's service: Pt seen and examined at bedside. Case management reports patient was for discharge yesterday. She is POD#2 bilateral 3rd digit total nail avulsions and left great toe partial nail avulsion. Patient states she did not feel comfortable going home, because "of the gaping wound in my foot." She is also reporting pain in her ribs at the site of her fall on 07/18/17. Patient is scheduled for dialysis today. She denies fevers, chills, MCDOWELL, CP, SOB, abdominal pain, n/v/d, dysuria/freq/urg, or lower extremity pain/swelling. Objective - Vital Signs/Intake and Output Vital Signs (last 24 hours): Temp Pulse Resp BP Pulse Ox 97.4 F L 83 20 131/78 98 07/20/17 00:00 07/20/17 00:00 07/20/17 00:00 07/20/17 00:00 07/20/17 00:00 - Medications Medications: Current Medications Clonidine HCl (Catapres) 0.3 mg PO BID [facility] Last Admin: 07/19/17 17:36 Dose: 0.3 mg Dextrose (Dextrose 50% Inj) 0 ml IV STAT PRN; Protocol PRN Reason: Hypoglycemia Protocol Dextrose (Glutose 15) 0 gm PO ONCE PRN; Protocol PRN Reason: Hypoglycemia Protocol Diphenhydramine HCl (Benadryl) 50 mg IVP Q4 PRN PRN Reason: itchiness Last Admin: 07/20/17 05:24 Dose: 50 mg Docusate Sodium (Colace) 100 mg PO DAILY [facility] Last Admin: 07/19/17 09:33 Dose: 100 mg Ergocalciferol (Drisdol 50,000 Intl Units Cap) 1 cap PO Q7D [facility] Last Admin: 07/15/17 00:45 Dose: 1 cap Glucagon (Glucagen Diagnostic Kit) 0 mg IM STAT PRN; Protocol PRN Reason: Hypoglycemia Protocol Heparin Sodium (Porcine) (Heparin) 5,000 units SC Q8 [facility] Last Admin: 07/20/17 07:09 Dose: Not Given Hydralazine HCl (Apresoline) 10 mg IVP Q6H PRN PRN Reason: high BP Hydromorphone HCl (Dilaudid) 2 mg IVP Q4H PRN PRN Reason: Pain, severe (8-10) Last Admin: 07/20/17 05:25 Dose: 2 mg Dextrose (Dextrose 5% In Water 1000 Ml) 1,000 mls @ 0 mls/hr IV .Q0M PRN; Protocol; Per Protocol PRN Reason: Hypoglycemia Protocol Insulin Aspart (Novolog) 0 unit SC ACHS [facility] PRN Reason: Protocol Last Admin: 07/19/17 21:41 Dose: Not Given Insulin Detemir (Levemir) 12 unit SC Q12 [facility] Last Admin: 07/19/17 21:45 Dose: Not Given Nifedipine (Procardia Xl) 60 mg PO BID [facility] Last Admin: 07/19/17 18:00 Dose: 60 mg Pantoprazole Sodium (Protonix Ec Tab) 40 mg PO DAILY [facility] Last Admin: 07/19/17 09:33 Dose: 40 mg Vitamin B Complex/Vit C/Folic Acid (Nephro-Vamshi) 1 tab PO 0800 [facility] Last Admin: 07/19/17 08:19 Dose: 1 tab - Labs Labs: 07/18/17 15:45 07/18/17 16:03 PT 12.2 SECONDS (9.7-12.2) 07/16/17 16:30 INR 1.1 07/16/17 16:30 APTT 33 SECONDS (21-34) 07/16/17 16:30 - Constitutional Appears: Non-toxic, No Acute Distress - Head Exam Head Exam: ATRAUMATIC, NORMOCEPHALIC - Eye Exam Eye Exam: EOMI, Normal appearance. absent: Scleral icterus - ENT Exam ENT Exam: Mucous Membranes Moist - Neck Exam Neck Exam: Full ROM - Respiratory Exam Respiratory Exam: Chest Wall Tenderness (anterior ribs at site of fall), Clear to Ausculation Bilateral, NORMAL BREATHING PATTERN. absent: Rales, Rhonchi, Wheezes - Cardiovascular Exam Cardiovascular Exam: REGULAR RHYTHM, +S1, +S2 - GI/Abdominal Exam GI & Abdominal Exam: Soft, Normal Bowel Sounds. absent: Tenderness - Extremities Exam Extremities Exam: Normal Inspection - Back Exam Back Exam: absent: CVA tenderness (L), CVA tenderness (R) - Neurological Exam Neurological Exam: Alert, Awake, Oriented x3 - Psychiatric Exam Psychiatric exam: Normal Affect, Normal Mood - Skin Skin Exam: Normal Color, Warm Assessment and Plan - Assessment and Plan (Free Text) Plan: Right Rib Injury Patient reports continued pain - offered ice to area CODE STAR 07/18 - Pt fell on right ribs, denies loss of consciousness/headache/chest pain STAT CXR and Right ribs (07/18/17) - unremarkable rib xray Right Foot Pain; resolving 3rd digit right foot pain Dr. Cardenas consulted - podiatry for debridement today depending on results of stat xrays/pt condition - no signs of infection, pt afebrile Pre-op clearance EKG (07/16/17): NSR, LVH, No acute ST/T wave changes CXR- mild interstitial prominence may reflect infection or edema. Cardiomegaly PT/PTT normal Urine negative on admission (07/12/17), repeated serum Boswell Score: 0.56% estimated probable risk for nikhil-operative RI/cardiac arrest Consult Cardio- Dr. Santos- cleared for podiatry procedure Diabetic gastroparesis Admit on 07/13 for abd pain, N/V Pt reports abd pain resolved BG with wide swings, due to patient irregular, poor eating habits Accuchecks QAC&HS Novolog ISS Levemir 12 units SQ Q12H (Pt refusing) Zofran 4 mg IV Q6 PRN Reglan 10 mg IV Q6 PRN Diluadid 2mg IV Q4H PRN Benadryl 25mg IV Q4H PRN for dialysis Patient referred to pain MGMT - Dr. Rudy Casanova ([facility]) [phone] Type Two Diabetes Mellitus BG with wide swings, due to patient irregular, poor eating habits Accuchecks QAC&HS Novolog ISS Levemir 12 units SQ Q12H (Pt refusing) ESRD on HD- MWF Consult: Dr. Beckman (help appreciated) Pt for dialysis today Phoslo 667mg PO TID Nephro-Vamshi Ergocalciferol 50k units for Vit D deficiency Hypertension Hypertensive urgency on admission - Max 213/123 - Pressures with much better control recently, but elevated this AM understandably after fall Clonidine 0.3 mg PO BID Procardia XL 60 mg PO Q12H Hydralazine 10mg IV Q6H if SBP > 160 Transplant Consideration Social work reports [facility] needs workup for possible kidney transplant Hepatitis and HIV panel negative Trigger Finger Left third digit Consultation, Dr. Wolf, help appreciated XR Left hand (07/18/17): No fracture or lytic lesion. No dislocation. Overall alignment unremarkable. Trigger finger possibly intermittent. (see full report) Hx of hypertensive cardiomyopathy KAMRAN 03/02/17: No evidence of endocarditis. LVEF WNL. Cardiac Catheterization on prior admission revealed patent coronaries; hypertensive cardiomyopahy EF: 45 Clonidine 0.3 mg PO BID Procardia XL 60 mg PO Q12H Prophylactic Measure Heparin 5000 units SQ Q12H (HOLD, can restart after podiatric surgery) Protonix 40mg PO Daily SCD[facility] Escobar Meek PGY-2 Disposition: The patient is stable for d/c as per Dr. Edilia Sexton after dialysis. Pt refused discharge yesterday. Patient referred to pain MGMT - Dr. Rudy Casanova ([facility]) [phone] All medical management per Dr. Sexton
[2017-07-20] MEDS: (Novolog) Insulin Aspart, Recombinant 100 u/ml 10 ml vial SC SCH ×2 (08:00→11:36)
[2017-07-20] MEDS: Multivitamin Vitamin B Complex (Nephro-Vite) Tab PO SCH (08:10)
[2017-07-20] MEDS ORDERED: HYDROmorphone 0.5 mg/0.5 ml ISec IVP ONE (08:41)
[2017-07-20 10:16] VITALS: PULSE 93; RESP 16; TEMP 97.5; O2SAT 100
[2017-07-20 10:16] LABS: BASO # 0.1 K/uL (0.0-0.2); BASO % 0.9 % (0.0-2.0); EOS # 0.7 K/uL (0.0-0.7); EOS % 10.7 % (0.0-4.0); LYMPH # 0.9 K/uL (1.0-4.3); LYMPH % 15.1 % (20.0-40.0); MEAN CELL VOLUME 96.4 fL (81.0-99.0); MEAN CORPUSCULAR HEMOGLOBIN 31.9 pg (27.0-31.0); MEAN CORPUSCULAR HGB CONC 33.1 g/dL (33.0-37.0); MEAN PLATELET VOLUME 8.5 fL (7.2-11.7); MONO # 0.7 K/uL (0.0-0.8); NRBC % 0.1 % (0.0-2.0); RED CELL DISTRIBUTION WIDTH 17.2 % (11.5-14.5); WHITE BLOOD COUNT 6.2 K/uL (4.8-10.8)
[2017-07-20 10:52] LABS: ALB/GLOB RATIO 0.9 (1.0-2.1); BILIRUBIN,TOTAL 0.5 mg/dL (0.2-1.3); CALCIUM 7.6 mg/dl (8.6-10.4); PHOSPHOROUS 6.5 mg/dL (2.5-4.5); POTASSIUM 4.6 mmol/L (3.6-5.2)
[2017-07-20] MEDS ORDERED: DiphenhydrAMINE 50 mg/ml Inj IVP ONE ×2 (11:30→16:00)
[2017-07-20] MEDS: Insulin Detemir 100 units/ml Vial (Levemir) SC SCH (11:35)
[2017-07-20] MEDS: Pantoprazole 40 mg EC Tab PO SCH (11:37)
[2017-07-20] MEDS: NIFEdipine 60 mg ER Tab PO SCH (11:37)
[2017-07-20 13:20] VITALS: BP 110/69
--- NOTE | 2017-07-20 15:55 | CP.PCM.PN ---
Subjective - Date & Time of Evaluation Date of Evaluation: 07/20/17 Time of Evaluation: 12:00 - Subjective Subjective: PT SEEN BY DR. Edilia CARVALHO AND DR. KEITH (RESIDENT). ALL D/C INFORMATION HAS BEEN PROVIDED ON THE D/C PLAN SINCE YESTERDAY (SEE MY DETAILED NOTE FROM 07/19). DR. KEITH MADE AWARE THAT I HAVE ALREADY BEGUN THE D/C PROCESS AND INFORMATION OF YESTERDAY. PT TO BE D/C HOME THIS EVENING AFTER HD. NO FURTHER ORDERS. Objective - Vital Signs/Intake and Output Vital Signs (last 24 hours): Temp Pulse Resp BP Pulse Ox 97.5 F L 93 H 16 110/69 100 07/20/17 09:25 07/20/17 09:25 07/20/17 09:25 07/20/17 11:40 07/20/17 09:25 Intake and Output: 07/20/17 07/20/17 06:59 18:59 Intake Total 380 Balance 380 - Medications Medications: Current Medications Clonidine HCl (Catapres) 0.3 mg PO BID [facility] Last Admin: 07/20/17 11:35 Dose: Not Given Dextrose (Dextrose 50% Inj) 0 ml IV STAT PRN; Protocol PRN Reason: Hypoglycemia Protocol Dextrose (Glutose 15) 0 gm PO ONCE PRN; Protocol PRN Reason: Hypoglycemia Protocol Diphenhydramine HCl (Benadryl) 50 mg IVP Q4 PRN PRN Reason: itchiness Last Admin: 07/20/17 09:39 Dose: 50 mg Diphenhydramine HCl (Benadryl) 25 mg IVP STAT [facility] Stop: 07/20/17 15:45 Docusate Sodium (Colace) 100 mg PO DAILY [facility] Last Admin: 07/20/17 11:35 Dose: Not Given Ergocalciferol (Drisdol 50,000 Intl Units Cap) 1 cap PO Q7D [facility] Last Admin: 07/15/17 00:45 Dose: 1 cap Glucagon (Glucagen Diagnostic Kit) 0 mg IM STAT PRN; Protocol PRN Reason: Hypoglycemia Protocol Heparin Sodium (Porcine) (Heparin) 5,000 units SC Q8 [facility] Last Admin: 07/20/17 14:14 Dose: 5,000 units Hydralazine HCl (Apresoline) 10 mg IVP Q6H PRN PRN Reason: high BP Hydromorphone HCl (Dilaudid) 2 mg IVP Q4H PRN PRN Reason: Pain, severe (8-10) Last Admin: 07/20/17 13:44 Dose: 2 mg Hydromorphone HCl (Dilaudid) 1 mg IVP STAT [facility] Stop: 07/20/17 15:46 Dextrose (Dextrose 5% In Water 1000 Ml) 1,000 mls @ 0 mls/hr IV .Q0M PRN; Protocol; Per Protocol PRN Reason: Hypoglycemia Protocol Insulin Aspart (Novolog) 0 unit SC ACHS [facility] PRN Reason: Protocol Last Admin: 07/20/17 11:36 Dose: Not Given Insulin Detemir (Levemir) 12 unit SC Q12 [facility] Last Admin: 07/20/17 11:35 Dose: Not Given Nifedipine (Procardia Xl) 60 mg PO BID [facility] Last Admin: 07/20/17 11:37 Dose: Not Given Pantoprazole Sodium (Protonix Ec Tab) 40 mg PO DAILY [facility] Last Admin: 07/20/17 11:37 Dose: Not Given Vitamin B Complex/Vit C/Folic Acid (Nephro-Vamshi) 1 tab PO 0800 [facility] Last Admin: 07/20/17 08:10 Dose: 1 tab - Labs Labs: 07/20/17 10:10 07/20/17 10:10 PT 12.2 SECONDS (9.7-12.2) 07/16/17 16:30 INR 1.1 07/16/17 16:30 APTT 33 SECONDS (21-34) 07/16/17 16:30
[2017-07-20] MEDS ORDERED: HYDROmorphone 1 mg/ml ISec IVP ONE (16:00)
--- NOTE | 2017-07-25 04:01 | OP ---
PROCEDURE DATE: 07/18/2017 PREOPERATIVE DIAGNOSES: 1. Bilateral painful dystrophic third digit nail plate with necrotic subungual debris. 2. Left great toe ingrown nail plate. POSTOPERATIVE DIAGNOSES: 1. Bilateral painful dystrophic third digit nail plate. 2. Left painful ingrown toenail, great toe. PROCEDURES PERFORMED: 1. Bilateral third digit total nail avulsion with matricectomy. 2. Left great toe medial border partial nail avulsion with exostectomy and matricectomy. PRIMARY SURGEON: Alexei Cardenas DPM BUSINESS DATA ANALYST: Gaudencio Bragg DPM, PGY-2. ANESTHESIOLOGIST: TYPE OF ANESTHESIA: MAC IV sedation with local. SPECIMEN: None. INDICATIONS: The patient is a 31-year-old female with above stated diagnoses. The patient has exhausted all conservative treatment options and now is in need of surgical intervention. The patient signed the surgical consent after careful explanation of risks, benefits, complications and potential alternatives to proposed surgical procedures. No guarantees were either given nor implied. Patient's questions were answered to her satisfaction. PREPARATION: The patient's n.p.o. status was confirmed prior to bringing the patient to the operating room. The patient's medical clearances were evaluated, reviewed and found to be adequate. The patient was brought into the operating room and placed on the operating room table in a supine position. Once IV sedation was confirmed to have been achieved, the patient received a total of 10 mL of a 1:1 mixture of 0.5% Marcaine plain to 2% lidocaine plain in a local block type fashion to the respective digit, total injection 20 mL systemically. Once local anesthetic was confirmed to have been achieved, the patient's right and left foot were then prepped and draped in the usual sterile manner and the procedure began. PROCEDURE 1: Bilateral third digit total nail avulsion with matricectomy. DESCRIPTION OF PROCEDURE: Attention was then directed to the respective right and left foot third digit where a [place] drain was utilized for local hemostasis control at the base of the digit. Once hemostasis control was confirmed to have been achieved, tangential incisions were made along medical and lateral nail folds using #15 blade, total length of incision 0.5 cm. This incision extended down to the layer of bone. At this time, using a periosteal elevator, the dystrophic, hypertrophic, discolored nail plate was removed from nail bed and passed from the operative field. At this time, using #67 blade, proximal nail fold was freed of its attachment to nail matrix and utilized as a dorsal flap. At this time, at the distal edge of the nail matrix and nail plate, a transverse incision was performed extending down to layer of bone. At this time, from distal edge to proximal nail matrix was excised using #67 blade and passed from the operative field. With nail matrix completely excised, electrocautery was utilized to completely destroy potential any remaining nail matrix, using curette all subungual debris, and cauterized nail matrix was excised and passed from the operative field. Incision sites were then flushed with copious amounts of sterile saline. Incision sites were re-approximated using 4-0 Prolene. Dorsal proximal nail fold flap was advanced distally and anchored to nail bed using 4-0 Prolene. Nail bed was then covered with Xeroform, 4 x 4 gauze, and Coban. PROCEDURE 2. Left great toe medial nail border nail avulsion with exostectomy and matricectomy. DESCRIPTION OF PROCEDURE: At this time, a tangential incision was made using #15 blade along medial nail fold. Incision length was 0.5 cm extending down to level of bone. At this time, medial nail border was freed using periosteal elevator. Using a nail splitter, medial nail border was split and extending down to level of medial nail border matrix. The freed medial nail border was then excised using hemostat and passed from the operative field. At this time, medial nail border matrix was excised using #15 blade. Medial bony prominence underlying medial nail matrix was rongeured free and hand rasped to remove all bony spurs. Incision site was then flushed with copious amount of sterile saline. Electrocautery was utilized to destroy any remaining nail matrix. Incision site was then flushed with copious amounts of sterile saline. Incision site was then re-approximated using 4-0 Prolene. Medial nail border was re-approximated to new medial nail plate border using 4-0 Prolene in a horizontal suture type fashion. Surgical site was then dressed Xeroform, 4 x 4 gauze, Kerlix, Jarvis, and Coban. The patient tolerated the anesthesia and procedure well and was escorted to the recovery room with vital signs stable and neurovascular status intact. The patient had no complaints or complications. The patient will follow up with Dr. Cardenas in-house. Gaudencio Bragg DPM Alexei Cardenas DPM
== END 2017-07-20 17:15 | disposition home or self-care (01) | DRG 468 ==
LOC: C.ER 07:34 → C.9E 10:08 → C.6T 13:10 → C.3T 07-19 10:41
PROVIDERS: ADMIT Internal Medicine Nephrology; ATTEND Internal Medicine Nephrology
PROC: 5A1D70Z Performance of Urinary Filtration, Intermittent, Less than 6 Hours Per Day (ICD-10-PCS; principal; 2017-07-16)
PROC: 0QBR0ZZ Excision of Left Toe Phalanx, Open Approach (ICD-10-PCS; 2017-07-18)
PROC: 0HDRXZZ Extraction of Toe Nail, External Approach (ICD-10-PCS; 2017-07-18)
PROC: 0HDRXZZ Extraction of Toe Nail, External Approach (ICD-10-PCS; 2017-07-18)
PROC: 0HDRXZZ Extraction of Toe Nail, External Approach (ICD-10-PCS; 2017-07-18)
DX: E11.43 Type 2 diabetes mellitus with diabetic autonomic (poly)neuropathy (principal); I13.2 Hypertensive heart and chronic kidney disease with heart failure and with stage 5 chronic kidney disease, or end stage renal disease; E11.22 Type 2 diabetes mellitus with diabetic chronic kidney disease; N18.6 End stage renal disease; K31.84 Gastroparesis; K86.1 Other chronic pancreatitis; B37.3 Candidiasis of vulva and vagina; I50.9 Heart failure, unspecified; I16.0 Hypertensive urgency; F41.9 Anxiety disorder, unspecified; J45.909 Unspecified asthma, uncomplicated; Z99.2 Dependence on renal dialysis; E78.00 Pure hypercholesterolemia, unspecified; E03.9 Hypothyroidism, unspecified; Z90.49 Acquired absence of other specified parts of digestive tract; Z95.5 Presence of coronary angioplasty implant and graft; D63.1 Anemia in chronic kidney disease; M65.332 Trigger finger, left middle finger; E55.9 Vitamin D deficiency, unspecified; L60.0 Ingrowing nail; Z79.4 Long term (current) use of insulin

== ENCOUNTER 2017-07-27 13:06 | Inpatient (IN) | payer MEDICAID ==
[2017-07-27 13:06] VITALS: BMI 25.6
[2017-07-27] MEDS ORDERED: HYDROmorphone 1 mg/ml ISec IVP STA (13:40)
--- NOTE | 2017-07-27 13:52 | C.PDOC ---
History Of Present Illness 31 y/o female, with PMHx of gastroparesis, ESRD on HD --, presents to ED c/o gastroparesis flare up. Pt complaints of abdominal pain, nausea,and vomiting that started this morning. Notes that she did not have dialysis today. Denies fever, or other complaints. Pt has been seen in this ER multiple times in the past for similar complaints. Time Seen by Provider: 07/27/17 13:29 Chief Complaint (Nursing): Abdominal Pain History Per: Patient History/Exam Limitations: no limitations Onset/Duration Of Symptoms: Hrs Current Symptoms Are (Timing): Still Present Location Of Pain/Discomfort: Epigastric Radiation Of Pain To:: None Quality Of Discomfort: "Pain" Associated Symptoms: Nausea, Vomiting. denies: Diarrhea, Loss Of Appetite, Constipation, Urinary Symptoms Exacerbating Factors: None Alleviating Factors: None Recent travel outside of the [place]: No Additional History Per: Patient Abnormal Vaginal Bleeding: No Past Medical History Reviewed: Historical Data, Nursing Documentation, Vital Signs Vital Signs: Last Vital Signs Temp 98.4 F 07/27/17 15:22 Pulse 112 H 07/27/17 15:22 Resp 18 07/27/17 15:22 BP 196/111 H 07/27/17 15:22 Pulse Ox 100 07/27/17 15:22 - Medical History PMH: Anemia, Anxiety, Asthma, Bronchitis, CHF, Diabetes, Fractures (Sep 2012 L foot), Gastritis, Gastrointestinal Ulcer (gastroparesis), Gall Bladder Disease ( gallbladder removed), Hepatitis, HTN, Hypercholesterolemia, Hyperthyroidism, Hypothyroidism, Kidney Stones, Pancreatitis (chronic), Peripheral Edema, Pneumonia, End Stage Renal Disease, Chronic Kidney Disease, Seizures, Sleep Apnea, Chronic Pain Surgical History: Cholecystectomy, Coronary Stent - [facility] Procedures (07/12/17) ASSISTANCE WITH RESPIRATORY VENTILATION, 24-96 HRS, CPAP (11/27/16) CAUTERY TO STOP EPISTAX (03/22/14) CENTRAL VENOUS CATHETER PLACEMENT WITH GUIDANCE (11/06/14) DIALYSIS ARTERIOVENOSTOM (01/10/14) DRAINAGE OF RIGHT FOOT SKIN, EXTERNAL APPROACH (07/17/16) DRAINAGE OF RIGHT LOWER ARM SKIN, EXTERNAL APPROACH (05/25/16) ESOPHAGOGASTRODUODENOSCOPY [EGD] W/CLOSED BIOPSY (03/03/14) EXCISION OF LEFT TOE PHALANX, OPEN APPROACH (07/12/17) EXCISION OF STOMACH, ENDO, DIAGN (05/09/16) EXTIRPATE MATTER FROM R LOW ARM SUBCU/FASCIA, PERC (05/25/16) EXTRACTION OF RIGHT FOOT SKIN, EXTERNAL APPROACH (05/25/16) EXTRACTION OF TOE NAIL, EXTERNAL APPROACH (07/12/17) FLEXIBLE SIGMOIDOSCOPY (10/26/14) FLUOROSCOPY OF R JUGULAR VEIN USING L OSM CONTRAST, GUIDANCE (12/13/15) FLUOROSCOPY OF RIGHT SUBCLAVIAN VEIN, GUIDANCE (08/07/16) HEMODIALYSIS (04/05/15) INJECT INSULIN (12/23/12) INJECT/INFUSE ELECTROLYT (12/23/12) INJECT/INFUSE NEC (01/17/15) INSERT INFUSION DEV IN R INT JUGULAR VEIN, PERC (02/23/16) INSERTION OF INFUSION DEV INTO R BASILIC VEIN, PERC APPROACH (04/18/16) INSERTION OF INFUSION DEV INTO R BRACH VEIN, PERC APPROACH (02/19/17) INSERTION OF INFUSION DEV INTO R SUBCLAV VEIN, PERC APPROACH (08/29/16) INSERTION OF INFUSION DEV INTO SUP VENA CAVA, PERC APPROACH (05/25/16) INSERTION OF INFUSION DEVICE INTO R ATRIUM, PERC APPROACH (12/13/15) INSERTION OF VAD INTO CHEST SUBCU/FASCIA, OPEN APPROACH (12/13/15) MEASURE OF CARDIAC SAMPL & PRESSURE, L HEART, PERC APPROACH (10/09/16) OTHER ENDOSCOPY OF SM INTEST (08/25/14) PACKED CELL TRANSFUSION (10/26/14) PERFORMANCE OF URINARY FILTRATION, MULTIPLE (03/19/17) PERFORMANCE OF URINARY FILTRATION, SINGLE (11/27/16) PLAIN RADIOGRAPHY OF LEFT HEART USING OTHER CONTRAST (10/09/16) PLAIN RADIOGRAPHY OF MULT COR ART USING OTH CONTRAST (10/09/16) PLICATION OF VENA CAVA (03/22/14) POST NASAL PAC FOR EPIST (03/22/14) REMOVAL OF VAD FROM TRUNK SUBCU/FASCIA, OPEN APPROACH (02/23/16) [facility] (03/03/14) THERAPEUTIC ERYTHROCYTAPHERESIS (10/26/14) TRANSFUSE NONAUT RED BLOOD CELLS IN PERIPH VEIN, PERC (02/19/17) ULTRASONOGRAPHY OF RIGHT AND LEFT HEART, TRANSESOPHAGEAL (02/19/17) ULTRASONOGRAPHY OF RIGHT SUBCLAVIAN VEIN, GUIDANCE (08/29/16) ULTRASONOGRAPHY OF RIGHT UPPER EXTREMITY VEINS, GUIDANCE (02/19/17) VACCINATION NEC (10/26/14) VENOUS CATHETERIZATION FOR RENAL DIALYSIS (03/03/14) Family History: States: Unknown Family Hx - Social History Hx Tobacco Use: No Hx Alcohol Use: No Hx Substance Use: No - Immunization History Hx Tetanus Toxoid Vaccination: No Hx Influenza Vaccination: Yes (05/2017) Hx Pneumococcal Vaccination: Yes (2015) Review Of Systems Except As Marked, All Systems Reviewed And Found Negative. Constitutional: Negative for: Fever, Chills Gastrointestinal: Positive for: Nausea, Vomiting, Abdominal Pain. Negative for : Diarrhea, Constipation Genitourinary: Negative for: Dysuria, Frequency, Hematuria Musculoskeletal: Negative for: Back Pain Physical Exam - Physical Exam Appears: Non-toxic, No Acute Distress Skin: Normal Color, Warm, Dry Head: Atraumatic, Normacephalic Eye(s): bilateral: Normal Inspection Oral Mucosa: Moist Chest: Symmetrical Cardiovascular: Rhythm Regular, No Murmur Respiratory: Normal Breath Sounds, No Rales, No Rhonchi, No Wheezing Gastrointestinal/Abdominal: Soft, Tenderness (epigastric), No Guarding, No Rebound Back: No CVA Tenderness Extremity: Normal ROM Neurological/Psych: Oriented x3, Normal Speech Gait: Unable To Assess ED Course And Treatment - Laboratory Results Result Diagrams: 07/27/17 15:49 07/27/17 15:49 Lab Interpretation: Abnormal O2 Sat by Pulse Oximetry: 96 Pulse Ox Interpretation: Normal Progress Note: Blood work ordered and reviewed. Pt was given Dilaudid, and Reglan. Spoke with Dr. Edilia Sexton who requested to keep pt in hospital for dialysis. Treated with additional dilaudid 1 mg IM Reassessment Condition: Improved - Physician Consult Information Physician Contacted: Kim Sexton Outcome Of Conversation: admit Medical Decision Making Medical Decision Making: Case discussed with Dr Phillips who will arrange for dialysis today Hemo dialysis ordered Disposition Discussed With : Kim Sexton Doctor Will See Patient In The: Hospital - Disposition Disposition: HOSPITALIZED Disposition Time: 14:00 Condition: STABLE - POA Present On Arrival: None - Clinical Impression Clinical Impression: Gastroparesis, Diabetic gastroparesis, Opioid dependence, ESRD (end stage renal disease) on dialysis - 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 - Scribe Statement The provider has reviewed the documentation as recorded by the Scribe Clovis Sexton All medical record entries made by the Arun were at my direction and personally dictated by me. I have reviewed the chart and agree that the record accurately reflects my personal performance of the history, physical exam, medical decision making, and the department course for this patient. I have also personally directed, reviewed, and agree with the discharge instructions and disposition.
[2017-07-27] MEDS ORDERED: HYDROmorphone 1 mg/ml ISec ONE ×2 (13:59→14:42)
[2017-07-27] MEDS ORDERED: HYDROmorphone 0.5 mg/0.5 ml ISec IM STA (14:39)
[2017-07-27 15:53] LABS: BASO # 0.1 K/uL (0.0-0.2); BASO % 1.3 % (0.0-2.0); EOS # 0.8 K/uL (0.0-0.7); EOS % 8.3 % (0.0-4.0); HEMATOCRIT 32.5 % (34.0-47.0); LYMPH # 1.4 K/uL (1.0-4.3); LYMPH % 14.2 % (20.0-40.0); MEAN CELL VOLUME 94.7 fL (81.0-99.0); MEAN CORPUSCULAR HGB CONC 32.8 g/dL (33.0-37.0); MEAN PLATELET VOLUME 7.4 fL (7.2-11.7); MONO # 0.5 K/uL (0.0-0.8); MONO % 5.5 % (0.0-10.0); NRBC % 0.2 % (0.0-2.0); RED CELL DISTRIBUTION WIDTH 16.3 % (11.5-14.5); WHITE BLOOD COUNT 9.5 K/uL (4.8-10.8)
[2017-07-27 16:19] LABS: ALB/GLOB RATIO 0.9 (1.0-2.1); BILIRUBIN,TOTAL 0.5 mg/dL (0.2-1.3); CALCIUM 7.5 mg/dl (8.6-10.4); POTASSIUM 4.4 mmol/L (3.6-5.2); TOTAL PROTEIN 8.7 g/dL (6.3-8.3)
[2017-07-27] MEDS ORDERED: HYDROmorphone 0.5 mg/0.5 ml ISec IVP SCH (17:00)
[2017-07-27] MEDS ORDERED: DiphenhydrAMINE 50 mg/ml Inj IVP ONE (17:00)
[2017-07-27] MEDS: DiphenhydrAMINE 50 mg/ml Inj IVP SCH ×2 (17:09→23:31)
[2017-07-27] MEDS ORDERED: HYDROmorphone 1 mg/ml ISec IVP SCH (17:15)
[2017-07-27] MEDS ORDERED: HYDROmorphone 1 mg/ml ISec SC ONE (17:15)
--- NOTE | 2017-07-27 17:21 | CP.PCM.HP ---
Past Patient History - Infectious Disease Hx of Infectious Diseases: None - Tetanus Immunizations Tetanus Immunization: Unknown - Past Medical History & Family History Past Medical History?: Yes - Past Social History Smoking Status: Never Smoked - CARDIAC Hx Congestive Heart Failure: Yes Hx Hypercholesterolemia: Yes Hx Hypertension: Yes Hx Peripheral Edema: Yes - PULMONARY Hx Asthma: Yes Hx Bronchitis: Yes Hx Pneumonia: Yes Hx Sleep Apnea: Yes - NEUROLOGICAL Hx Seizures: Yes - HEENT Hx HEENT Problems: Yes Hx Cataracts: Yes Hx Glaucoma: Yes - RENAL Hx Chronic Kidney Disease: Yes Hx Kidney Stones: Yes - ENDOCRINE/METABOLIC Hx Hyperthyroidism: Yes Hx Hypothyroidism: Yes - HEMATOLOGICAL/ONCOLOGICAL Hx Anemia: Yes - INTEGUMENTARY Hx Dermatological Problems: Yes Other/Comment: DRY ITCHY SKIN ;multiple/generalized dark spots on skin. left toe blister - MUSCULOSKELETAL/RHEUMATOLOGICAL Hx Fractures: Yes (Sep 2012 L foot) - GASTROINTESTINAL Hx Gall Bladder Disease: Yes (gallbladder removed) Hx Gastritis: Yes Hx Pancreatitis: Yes (chronic) - PSYCHIATRIC Hx Anxiety: Yes Hx Substance Use: No - SURGICAL HISTORY Hx Cholecystectomy: Yes Hx Coronary Stent: Yes - ANESTHESIA Hx Anesthesia: Yes Hx Anesthesia Reactions: No Hx Malignant Hyperthermia: No Meds Allergies/Adverse Reactions: Allergies Allergy/AdvReac Type Severity Reaction Status Date / Time ketorolac tromethamine Allergy RASH Verified 07/27/17 13:38 [From Toradol] latex Allergy RASH Verified 07/27/17 13:38 morphine Allergy RASH Verified 07/27/17 13:38 tramadol Allergy RASH Verified 07/27/17 13:38 Results - Vital Signs Recent Vital Signs: Last Vital Signs Temp 98.2 F 07/27/17 15:30 Pulse 118 H 07/27/17 15:30 Resp 20 07/27/17 15:40 BP 204/112 H 07/27/17 15:40 Pulse Ox 96 07/27/17 16:25 - Labs Result Diagrams: 07/27/17 15:49 07/27/17 15:49 Labs: Laboratory Results - last 24 hr 07/27/17 07/27/17 07/27/17 15:49 15:49 16:27 WBC 9.5 D RBC 3.43 L Hgb 10.6 L Hct 32.5 L MCV 94.7 MCH 31.0 MCHC 32.8 L RDW 16.3 H Plt Count 442 H D MPV 7.4 Neut % (Auto) 70.7 Lymph % (Auto) 14.2 L Thomas % (Auto) 5.5 Eos % (Auto) 8.3 H Baso % (Auto) 1.3 Neut # 6.7 Lymph # 1.4 Thomas # 0.5 Eos # 0.8 H Baso # 0.1 Sodium 134 Potassium 4.4 Chloride 95 L Carbon Dioxide 26 Anion Gap 17 BUN 62 H Creatinine 8.2 H* Est GFR ( Amer) 7 Est GFR (Non-Af Amer) 6 POC Glucose (mg/dL) 156 H Random Glucose 273 H Calcium 7.5 L Total Bilirubin 0.5 AST 20 ALT 31 Alkaline Phosphatase 159 H Total Protein 8.7 H Albumin 4.1 Globulin 4.6 H Albumin/Globulin Ratio 0.9 L Lipase 96
[2017-07-27] MEDS: HYDROmorphone 1 mg/ml ISec IVP SCH ×2 (20:26→23:31)
[2017-07-27] MEDS: Insulin Detemir 100 units/ml Vial (Levemir) SC SCH (21:40)
[2017-07-27] MEDS: NIFEdipine 60 mg ER Tab PO SCH (21:59)
[2017-07-28] MEDS: HYDROmorphone 0.5 mg/0.5 ml ISec IVP SCH ×7 (02:09→22:34)
[2017-07-28] MEDS: DiphenhydrAMINE 50 mg/ml Inj IVP SCH ×3 (05:16→22:15)
[2017-07-28] MEDS: (Novolog) Insulin Aspart, Recombinant 100 u/ml 10 ml vial SC SCH ×4 (07:30→21:46)
[2017-07-28] MEDS: Multivitamin Vitamin B Complex (Nephro-Vite) Tab PO SCH (08:00)
[2017-07-28] MEDS: Pantoprazole 40 mg EC Tab PO SCH (09:56)
[2017-07-28] MEDS: Insulin Detemir 100 units/ml Vial (Levemir) SC SCH ×2 (10:00→21:46)
[2017-07-28] MEDS: NIFEdipine 60 mg ER Tab PO SCH ×2 (10:00→17:11)
--- NOTE | 2017-07-28 10:17 | CP.PCM.PN ---
Subjective - Date & Time of Evaluation Date of Evaluation: 07/28/17 Time of Evaluation: 10:12 - Subjective Subjective: Podiatry Consult Note for Dr. Noble 31 y.o f with PMHx of anemia, anxiety, asthma, CHF, DM, hepatitis, HTN, hypercholesterolemia, chronic pancreatitis, ESRD of was seen and evaluated at bedside toe discoloration and 1 week s/p b/l 3rd digit total nail avulsion and left great toe partial nail avulsion by Dr. Noble. She has continued to see Dr. Noble as an outpatient in his office. She reports that she is concern with the discoloration to her digits and the drainage from her left 3rd digit. She reports no pain at the moment but does report tenderness to the left 3rd digit with touch. She denies fever, vomiting, chest pains and chills. She reports some shortness of breath and nausea and reports that is normal for her. She denies calf pain. PMH-anemia, anxiety, asthma, CHF, DM, hepatitis, HTN, hypercholesterolemia, chronic pancreatitis, ESRD PSH- gall bladder surgery, GI exploratory surgery, right foot surgery October 2016 SH- denies drinking alcohol, ilicit drug use, smoking FH-none ALL: ketorolac, latex, morphine, tramadol (hives) MEDS: see medication list Objective - Vital Signs/Intake and Output Vital Signs (last 24 hours): Temp Pulse Resp BP Pulse Ox 98.1 F 80 20 135/70 100 07/28/17 00:00 07/28/17 09:04 07/28/17 00:00 07/28/17 00:00 07/28/17 00:00 Intake and Output: 07/28/17 07/28/17 06:59 18:59 Intake Total 100 Balance 100 - Medications Medications: Current Medications Calcium Acetate (Phoslo) 667 mg PO TID [facility] Last Admin: 07/28/17 09:51 Dose: 667 mg Clonidine HCl (Catapres) 0.3 mg PO BID [facility] Last Admin: 07/28/17 09:51 Dose: 0.3 mg Diphenhydramine HCl (Benadryl) 25 mg IVP Q8 [facility] Last Admin: 07/28/17 05:16 Dose: 25 mg Fentanyl (Duragesic) 1 patch TD Q72H [facility] Last Admin: 07/27/17 21:40 Dose: 1 patch Gabapentin (Neurontin) 300 mg PO BID [facility] Last Admin: 07/28/17 09:51 Dose: 300 mg Heparin Sodium (Porcine) (Heparin) 5,000 units SC Q8 [facility] Last Admin: 07/28/17 05:16 Dose: 5,000 units Hydromorphone HCl (Dilaudid) 2 mg IVP Q3H [facility] Last Admin: 07/28/17 08:27 Dose: 2 mg Insulin Aspart (Novolog) 6 unit SC AC [facility] Last Admin: 07/28/17 07:30 Dose: 6 unit Insulin Detemir (Levemir) 12 unit SC Q12 [facility] Last Admin: 07/27/17 21:40 Dose: 12 unit Metoclopramide HCl (Reglan) 10 mg PO DAILY [facility] Nifedipine (Procardia Xl) 60 mg PO BID [facility] Last Admin: 07/27/17 21:59 Dose: 60 mg Ondansetron HCl (Zofran Inj) 4 mg IVP Q8 [facility] Last Admin: 07/28/17 08:00 Dose: 4 mg Pantoprazole Sodium (Protonix Ec Tab) 40 mg PO DAILY [facility] Last Admin: 07/28/17 09:56 Dose: 40 mg Vitamin B Complex/Vit C/Folic Acid (Nephro-Vamshi) 1 tab PO 0800 [facility] - Labs Labs: 07/27/17 15:49 07/27/17 15:49 - Constitutional Appears: Well, Non-toxic, No Acute Distress - Extremities Exam Extremities Exam: Normal Capillary Refill. absent: Calf Tenderness, Pedal Edema Additional comments: Vasc: DP and PT 2/4 bilaterally, CFT < 3 seconds x 10 digits, temperature gradient WNL, same mild localized nonpitting swelling noted to the 3rd digits bilaterally Ortho: tenderness noted to the left 3rd digit, less tenderness noted to the right 3rd digit or left hallux. MM is 5/5 in all four compartments in dorsiflexion, plantarflexion, inversion, and eversion Neuro: gross sensation intact, protective sensation diminished Derm: discoloration noted to the 3rd digits b/l, all 3 surgical sites: no erythema, no streaking, no odor, no fluctance, no increase warmth, skin coapted with sutures intact; approximately 1 cc of sangious/purulence drainage expressed from left 3rd digit through surigcal site laterally, no odor noted from the surgical site - Neurological Exam Neurological Exam: Alert, Awake, Oriented x3 - Psychiatric Exam Psychiatric exam: Normal Affect, Normal Mood Assessment and Plan - Assessment and Plan (Free Text) Assessment: 31 y.o f with PMHx of anemia, anxiety, asthma, CHF, DM, hepatitis, HTN, hypercholesterolemia, chronic pancreatitis, ESRD with toe discoloration and 1 week s/p b/l 3rd digit total nail avulsion and left great toe partial nail avulsion with drainage noted to left 3rd digit. Plan: Patient examined and evaluated Charts, labs, vitals reviewed -afebrile, WBC=9.5 Discussed the plan in detail with Dr. Noble Expressed total of 1cc of purulence/sangious drainage from 3rd left digit ID consulted Dr. Pinto- rec ommendations appreciated Dr. Pinto- to give stat of 1g of Vanco, then 750 with each HD - add Zosyn for Psuedomonas coverage if not allergic Ordered 1g of Vanco Stat per ID Surgical incisions cleansed with betadine, and dressed with DSD and cling. Will continue to follow while in house Thank you for the consult
[2017-07-28] MEDS ORDERED: DiphenhydrAMINE 50 mg/ml Inj IVP ONE (11:15)
[2017-07-28] MEDS ORDERED: Vancomycin 1 gm/NS 200 ml 1 GM/200 ML BAG IVPB ONE (15:15)
--- NOTE | 2017-07-28 16:33 | CP.PCM.PN ---
Subjective - Date & Time of Evaluation Date of Evaluation: 07/28/17 Time of Evaluation: 07:20 - Subjective Subjective: clinically same Objective - Vital Signs/Intake and Output Vital Signs (last 24 hours): Temp Pulse Resp BP Pulse Ox 97.6 F 76 18 129/93 H 100 07/28/17 12:20 07/28/17 12:20 07/28/17 12:20 07/28/17 12:20 07/28/17 12:20 Intake and Output: 07/28/17 07/28/17 06:59 18:59 Intake Total 100 300 Balance 100 300 - Medications Medications: Current Medications Calcium Acetate (Phoslo) 667 mg PO TID [facility] Last Admin: 07/28/17 14:20 Dose: 667 mg Clonidine HCl (Catapres) 0.3 mg PO BID [facility] Last Admin: 07/28/17 09:51 Dose: 0.3 mg Diphenhydramine HCl (Benadryl) 25 mg IVP Q8 [facility] Last Admin: 07/28/17 14:32 Dose: 25 mg Fentanyl (Duragesic) 1 patch TD Q72H [facility] Last Admin: 07/27/17 21:40 Dose: 1 patch Gabapentin (Neurontin) 300 mg PO BID [facility] Last Admin: 07/28/17 09:51 Dose: 300 mg Heparin Sodium (Porcine) (Heparin) 5,000 units SC Q8 [facility] Last Admin: 07/28/17 14:05 Dose: 5,000 units Hydromorphone HCl (Dilaudid) 2 mg IVP Q3H [facility] Last Admin: 07/28/17 14:22 Dose: 2 mg Vancomycin/Sodium Chloride (Vancomycin 1 Gm/Ns 200 Ml) 1 gm in 200 mls @ 133 mls/hr IVPB ONCE ONE Stop: 07/28/17 16:45 Last Admin: 07/28/17 16:19 Dose: 133 mls/hr Insulin Aspart (Novolog) 0 unit SC ACHS [facility] PRN Reason: Protocol Insulin Detemir (Levemir) 12 unit SC Q12 [facility] Last Admin: 07/28/17 10:00 Dose: 12 unit Metoclopramide HCl (Reglan) 10 mg PO DAILY [facility] Last Admin: 07/28/17 10:00 Dose: 10 mg Nifedipine (Procardia Xl) 60 mg PO BID [facility] Last Admin: 07/28/17 10:00 Dose: 60 mg Ondansetron HCl (Zofran Inj) 4 mg IVP Q8 PRN PRN Reason: Nausea/Vomiting Pantoprazole Sodium (Protonix Ec Tab) 40 mg PO DAILY [facility] Last Admin: 07/28/17 09:56 Dose: 40 mg Vitamin B Complex/Vit C/Folic Acid (Nephro-Vamshi) 1 tab PO 0800 [facility] Last Admin: 07/28/17 08:00 Dose: 1 tab - Labs Labs: 07/27/17 15:49 07/27/17 15:49 - Constitutional Appears: Well - Head Exam Head Exam: ATRAUMATIC, NORMAL INSPECTION, NORMOCEPHALIC - Eye Exam Eye Exam: EOMI, Normal appearance, PERRL Pupil Exam: NORMAL ACCOMODATION, PERRL - ENT Exam ENT Exam: Mucous Membranes Moist, Normal Exam - Neck Exam Neck Exam: Full ROM, Normal Inspection. absent: Lymphadenopathy - Respiratory Exam Respiratory Exam: Decreased Breath Sounds - Cardiovascular Exam Cardiovascular Exam: REGULAR RHYTHM, +S1, +S2 - GI/Abdominal Exam GI & Abdominal Exam: Soft, Diminished Bowel Sounds - Rectal Exam Rectal Exam: Deferred
[2017-07-29] MEDS: DiphenhydrAMINE 50 mg/ml Inj IVP SCH ×3 (05:28→21:12)
[2017-07-29] MEDS: (Novolog) Insulin Aspart, Recombinant 100 u/ml 10 ml vial SC SCH ×4 (07:56→21:12)
[2017-07-29] MEDS: Multivitamin Vitamin B Complex (Nephro-Vite) Tab PO SCH (07:56)
--- NOTE | 2017-07-29 09:22 | CP.PCM.PN ---
Subjective - Date & Time of Evaluation Date of Evaluation: 07/29/17 Time of Evaluation: 07:20 - Subjective Subjective: clinically same Objective - Vital Signs/Intake and Output Vital Signs (last 24 hours): Temp Pulse Resp BP Pulse Ox 98.1 F 96 H 20 91/61 L 100 07/29/17 00:00 07/29/17 00:00 07/29/17 00:00 07/29/17 00:00 07/29/17 08:47 Intake and Output: 07/29/17 07/29/17 06:59 18:59 Intake Total 750 Balance 750 - Medications Medications: Current Medications Calcium Acetate (Phoslo) 667 mg PO TID [facility] Last Admin: 07/28/17 17:10 Dose: 667 mg Clonidine HCl (Catapres) 0.3 mg PO BID [facility] Last Admin: 07/28/17 17:10 Dose: 0.3 mg Diphenhydramine HCl (Benadryl) 25 mg IVP Q8 [facility] Last Admin: 07/29/17 05:28 Dose: 25 mg Fentanyl (Duragesic) 1 patch TD Q72H [facility] Last Admin: 07/27/17 21:40 Dose: 1 patch Gabapentin (Neurontin) 300 mg PO BID [facility] Last Admin: 07/28/17 17:10 Dose: 300 mg Heparin Sodium (Porcine) (Heparin) 5,000 units SC Q8 [facility] Last Admin: 07/29/17 05:31 Dose: Not Given Hydromorphone HCl (Dilaudid) 2 mg IVP Q3H [facility] Last Admin: 07/29/17 08:52 Dose: Not Given Insulin Aspart (Novolog) 0 unit SC ACHS [facility] PRN Reason: Protocol Last Admin: 07/29/17 07:56 Dose: 2 unit Insulin Detemir (Levemir) 12 unit SC Q12 [facility] Last Admin: 07/28/17 21:46 Dose: Not Given Metoclopramide HCl (Reglan) 10 mg PO DAILY [facility] Last Admin: 07/28/17 10:00 Dose: 10 mg Morphine Sulfate (Morphine) 2 mg IM STAT STA Stop: 07/29/17 09:11 Nifedipine (Procardia Xl) 60 mg PO BID [facility] Last Admin: 07/28/17 17:11 Dose: 60 mg Ondansetron HCl (Zofran Inj) 4 mg IVP Q8 PRN PRN Reason: Nausea/Vomiting Last Admin: 07/29/17 02:56 Dose: 4 mg Pantoprazole Sodium (Protonix Ec Tab) 40 mg PO DAILY [facility] Last Admin: 07/28/17 09:56 Dose: 40 mg Vitamin B Complex/Vit C/Folic Acid (Nephro-Vamshi) 1 tab PO 0800 [facility] Last Admin: 07/29/17 07:56 Dose: 1 tab - Labs Labs: 07/27/17 15:49 07/27/17 15:49 - Constitutional Appears: Well - Head Exam Head Exam: ATRAUMATIC, NORMAL INSPECTION, NORMOCEPHALIC - Eye Exam Eye Exam: EOMI, Normal appearance, PERRL Pupil Exam: NORMAL ACCOMODATION, PERRL - ENT Exam ENT Exam: Mucous Membranes Moist, Normal Exam - Neck Exam Neck Exam: Full ROM, Normal Inspection. absent: Lymphadenopathy - Respiratory Exam Respiratory Exam: Decreased Breath Sounds - Cardiovascular Exam Cardiovascular Exam: REGULAR RHYTHM, +S1, +S2 - GI/Abdominal Exam GI & Abdominal Exam: Soft, Diminished Bowel Sounds - Rectal Exam Rectal Exam: Deferred
[2017-07-29] MEDS: NIFEdipine 60 mg ER Tab PO SCH ×2 (10:38→17:35)
[2017-07-29] MEDS: Pantoprazole 40 mg EC Tab PO SCH (10:38)
[2017-07-29] MEDS: Insulin Detemir 100 units/ml Vial (Levemir) SC SCH ×2 (10:43→21:11)
--- NOTE | 2017-07-29 11:02 | CP.PCM.PN ---
Subjective - Date & Time of Evaluation Date of Evaluation: 07/29/17 Time of Evaluation: 11:43 - Subjective Subjective: Podiatry Progress Note for Dr. Noble 31 y.o f with PMHx of anemia, anxiety, asthma, CHF, DM, hepatitis, HTN, hypercholesterolemia, chronic pancreatitis, ESRD of was seen and evaluated at bedside toe discoloration and 1 week s/p b/l 3rd digit total nail avulsion and left great toe partial nail avulsion. Patient is seen resting comfortably in bed , NAD, and AA0x3. Patient is seen with dressing off. She denies fever, vomiting , chest pains and chills. She reports some shortness of breath and nausea and reports that is normal for her. She denies calf pain. Objective - Vital Signs/Intake and Output Vital Signs (last 24 hours): Temp Pulse Resp BP Pulse Ox 98.2 F 98 H 20 115/68 99 07/29/17 10:08 07/29/17 10:08 07/29/17 10:08 07/29/17 10:08 07/29/17 10:08 Intake and Output: 07/29/17 07/29/17 06:59 18:59 Intake Total 750 Balance 750 - Medications Medications: Current Medications Calcium Acetate (Phoslo) 667 mg PO TID [facility] Last Admin: 07/29/17 10:38 Dose: 667 mg Clonidine HCl (Catapres) 0.3 mg PO BID [facility] Last Admin: 07/29/17 10:38 Dose: 0.3 mg Diphenhydramine HCl (Benadryl) 25 mg IVP Q8 [facility] Last Admin: 07/29/17 05:28 Dose: 25 mg Fentanyl (Duragesic) 1 patch TD Q72H [facility] Last Admin: 07/27/17 21:40 Dose: 1 patch Gabapentin (Neurontin) 300 mg PO BID [facility] Last Admin: 07/29/17 10:38 Dose: 300 mg Heparin Sodium (Porcine) (Heparin) 5,000 units SC Q8 [facility] Last Admin: 07/29/17 05:31 Dose: Not Given Hydromorphone HCl (Dilaudid) 2 mg IVP Q3H [facility] Last Admin: 07/29/17 08:52 Dose: Not Given Insulin Aspart (Novolog) 0 unit SC ACHS [facility] PRN Reason: Protocol Last Admin: 07/29/17 07:56 Dose: 2 unit Insulin Detemir (Levemir) 12 unit SC Q12 [facility] Last Admin: 07/29/17 10:43 Dose: 12 unit Metoclopramide HCl (Reglan) 10 mg PO DAILY [facility] Last Admin: 07/29/17 10:38 Dose: 10 mg Nifedipine (Procardia Xl) 60 mg PO BID [facility] Last Admin: 07/29/17 10:38 Dose: 60 mg Ondansetron HCl (Zofran Inj) 4 mg IVP Q8 PRN PRN Reason: Nausea/Vomiting Last Admin: 07/29/17 02:56 Dose: 4 mg Pantoprazole Sodium (Protonix Ec Tab) 40 mg PO DAILY [facility] Last Admin: 07/29/17 10:38 Dose: 40 mg Vitamin B Complex/Vit C/Folic Acid (Nephro-Vamshi) 1 tab PO 0800 [facility] Last Admin: 07/29/17 07:56 Dose: 1 tab - Labs Labs: 07/27/17 15:49 07/27/17 15:49 - Constitutional Appears: Well, Non-toxic, No Acute Distress - Extremities Exam Additional comments: Vasc: DP and PT 2/4 bilaterally, CFT < 3 seconds x 10 digits, temperature gradient WNL, same mild localized nonpitting swelling noted to the 3rd digits bilaterally Ortho: tenderness noted to the left 3rd digit, less tenderness noted to the right 3rd digit or left hallux. MM is 5/5 in all four compartments in dorsiflexion, plantarflexion, inversion, and eversion Neuro: gross sensation intact, protective sensation diminished Derm: discoloration noted to the 3rd digits b/l, all 3 surgical sites: no erythema, no streaking, no odor, no fluctance, no increase warmth, skin coapted with sutures intact; approximately 1 cc of sangious/purulence drainage expressed from left 3rd digit through surigcal site laterally, no odor noted from the surgical site - Neurological Exam Neurological Exam: Alert, Awake, Oriented x3 - Psychiatric Exam Psychiatric exam: Normal Affect, Normal Mood Assessment and Plan - Assessment and Plan (Free Text) Assessment: 31 y.o f with 3rd digit toe discoloration and 1 week s/p b/l 3rd digit total nail avulsion and left great toe partial nail avulsion with drainage noted to left 3rd digit. Plan: Patient examined and evaluated Charts, labs, vitals reviewed -afebrile, WBC=9.5 (07/27/17) Discussed the plan in detail with Dr. Noble ID consulted Dr. Pinto- rec ommendations appreciated Dr. Pinto- to give stat of 1g of Vanco, then 750 with each HD - add Zosyn for Psuedomonas coverage if not allergic Surgical incisions cleansed with betadine, and dressed with DSD and cling. Podiatry will continue to provide local wound care while in house Will continue to follow while in house Will f/u with Dr. Noble as outpatient
--- NOTE | 2017-07-29 11:48 | CP.PCM.PCO ---
Physician Communication Note - Physician Communication Note Physician Communication Note: patient had IM dilaudid ordered prior to IV insertion. Assessment/Plan - Assessment and Plan (Free Text) Assessment: Im dilaudid given, IV insertion. The preset restart time for dilaudid 2mg IV Dilaudid set for 12pm. patient made a scene at the front of the nurses station by yelling and stating that she was unhappy and did not like what house doctor (this resident) told patient about not being able to restart earlier. Patient demanded that nurses speak to DR. Edilia Sexton. secretary of state called and this resident spoke to on the phone and Dr. Sexton stated to give the patient IV 2mg Dilaudid dose. Diluadid IVP restarted at 11:40am - Date & Time Date: 07/29/17 Time: 11:47
--- NOTE | 2017-07-29 15:57 | CP.PCM.CON ---
History of Present Illness - History of Present Illness History of Present Illness: 31 y.o f with PMHx of anemia, anxiety, asthma, CHF, DM, hepatitis, HTN, hypercholesterolemia, chronic pancreatitis, ESRD of was seen and evaluated at bedside toe discoloration and 1 week s/p b/l 3rd digit total nail avulsion and left great toe partial nail avulsion by Dr. Noble. She has continued to see Dr. Noble as an outpatient in his office. She reports that she is concern with the discoloration to her digits and the drainage from her left 3rd digit. PMH-anemia, anxiety, asthma, CHF, DM, hepatitis, HTN, hypercholesterolemia, chronic pancreatitis, ESRD PSH- gall bladder surgery, GI exploratory surgery, right foot surgery October 2016 SH- denies drinking alcohol, ilicit drug use, smoking FH-none ALL: ketorolac, latex, morphine, tramadol (hives) MEDS: see medication list Review of Systems - Review of Systems All systems: reviewed and no additional remarkable complaints except - Constitutional Constitutional: As Per HPI - EENT Eyes: absent: As Per HPI, Blind Spots, Blurred Vision, Change in Vision, Decreased Night Vision, Diplopia, Discharge, Dry Eye, Exophthalmos, Floaters, Irritation, Itchy Eyes, Loss of Peripheral Vision, Pain, Photophobia, Requires Corrective Lenses, Sees Flashes, Spots in Vision, Tunnel Vision, Other Visual Disturbances, Loss of Vision, Other Ears: absent: As Per HPI, Decreased Hearing, Ear Discharge, Ear Pain, Tinnitus, Abnormal Hearing, Disequilibrium, Dizziness, Other Nose/Mouth/Throat: absent: As Per HPI, Epistaxis, Nasal Congestion, Nasal Discharge, Nasal Obstruction, Nasal Trauma, Nose Pain, Post Nasal Drip, Sinus Pain, Sinus Pressure, Bleeding Gums, Change in Voice, Dental Pain, Dry Mouth, Dysphagia, Halitosis, Hoarsness, Lip Swelling, Mouth Lesions, Mouth Pain, Odynophagia, Sore Throat, Throat Swelling, Tongue Swelling, Facial Pain, Neck Pain, Neck Mass, Other - Breasts Breasts: absent: As Per HPI, Change in Shape, Mass, Pain, Nipple Discharge, Nipple Inversion, Skin Changes, Swelling, Other - Cardiovascular Cardiovascular: absent: As Per HPI, Acrocyanosis, Chest Pain, Chest Pain at Rest , Chest Pain with Activity, Claudication, Diaphoresis, Dyspnea, Dyspnea on Exertion, Edema, Irregular Heart Rhythm, Pain Radiating to Arm/Neck/Jaw, Leg Edema, Leg Ulcers, Lightheadedness, Orthopnea, Palpitations, Paroxysmal Nocturnal Dyspnea, Pedal Edema, Radiating Pain, Rapid Heart Rate, Slow Heart Rate, Syncope, Other - Respiratory Respiratory: absent: As Per HPI, Cough, Dyspnea, Hemoptysis, Dyspnea on Exertion , Wheezing, Snoring, Stridor, Pain on Inspiration, Chest Congestion, Excessive Mucous Production, Change in Mucous Color, Pain with Coughing, Other - Gastrointestinal Gastrointestinal: absent: As Per HPI, Abdominal Pain, Belching, Bloating, Change in Bowel Habits, Change in Stool Character, Coffee Ground Emesis, Constipation, Cramping, Diarrhea, Dyspepsia, Dysphagia, Early Satiety, Excessive Flatus, Fecal Incontinence, Heartburn, Hematemesis, Hematochezia, Loose Stools, Melena, Nausea, Odynophagia, Temesmus, Vomiting, Other - Genitourinary Genitourinary: absent: As Per HPI, Change in Urinary Stream, Difficulty Urinating, Dysuria, Flank Pain, Hematuria, Pyuria, Nocturia, Urinary Incontinence, Urinary Frequency, Urinary Hesitance, Urinary Urgency, Voiding Freq/Small Amts, Freq UTI, Hx Renal/Bladder Calculi, Hx /Renal Surgery, Bladder Distension, Other - Reproductive: Female Reproductive:Female: absent: As Per HPI, Amenorrhea, Amenorrhea/ Control, Currently Menstual, Cycle <21 Days, Cycle >35 Days, Cycle Variable, Menses 1-7 Days, Menses >/= 8 Days, Menses Variable, Cycle > 4 Weeks Between, No Menses for 6 Months, Heavy Menses, Light Menses, Normal Menses, Spotting Between Cycles , S/P Hysterectomy, Menopausal, Post Menopausal, Premenarche, Abnormal Vaginal Bleeding, Dysmenorrhea, Dyspareunia, Genital Lesions, Genital Pruritis, Pelvic Pain, Prolapse Symptoms, Sexual Dysfunction, Vaginal Discharge, Vaginal Dryness , Vaginal Odor, Vaginal Pruritis, Other - Menstruation Menstruation: absent: As Per HPI, Amenorrhea, Amenorrhea/ Control, Currently Menstual, Cycle <21 Days, Cycle >35 Days, Cycle Variable, Menses 1-7 Days, Menses >/= 8 Days, Menses Variable, Cycle > 4 Weeks Between, No Menses for 6 Months, Heavy Menses, Light Menses, Normal Menses, Spotting Between Cycles , S/P Hysterectomy, Menopausal, Post Menopausal, Premenarche, Abnormal Vaginal Bleeding, Dysmenorrhea, Other - Musculoskeletal Musculoskeletal: As Per HPI - Integumentary Integumentary: As Per HPI, Skin Pain, Wounds - Neurological Neurological: absent: As Per HPI, Abnormal Gait, Abnormal Hearing, Abnormal Movements, Abnormal Speech, Behavioral Changes, Burning Sensations, Confusion, Convulsions, Disequilibrium, Dizziness, Numbness, Focal Weakness, Frequent Falls , Headaches, Lack of Coordination, Loss of Vision, Memory Loss, Paresthesias, Radicular Pain, Restless Legs, Sensory Deficit, Syncope, Tingling, Tremor, Vertigo, Weakness, Other Visual Disturbances, Other - Psychiatric Psychiatric: absent: As Per HPI, Abnormal Sleep Pattern, Anhedonia, Anxiety, Auditory Hallucinations, Behavioral Changes, Change in Appetite, Change in Libido, Confusion, Depression, Difficulty Concentrating, Hallucinations, Homicidal Ideation, Hopelessness, Irritability, Memory Loss, Mood Swings, Panic Attacks, Paranoia, Suicidal Ideation, Visual Hallucinations, Tactile Hallucinations, Other - Endocrine Endocrine: As Per HPI - Hematologic/Lymphatic Hematologic: absent: As Per HPI, Easy Bleeding, Easy Bruising, Lymphadenopathy, Other Past Patient History - Infectious Disease Hx of Infectious Diseases: None - Tetanus Immunizations Tetanus Immunization: Unknown - Past Medical History & Family History Past Medical History?: Yes - Past Social History Smoking Status: Unknown If Ever Smoked - CARDIAC Hx Congestive Heart Failure: Yes Hx Hypercholesterolemia: Yes Hx Hypertension: Yes Hx Peripheral Edema: Yes - PULMONARY Hx Asthma: Yes Hx Bronchitis: Yes Hx Pneumonia: Yes Hx Sleep Apnea: Yes - NEUROLOGICAL Hx Seizures: Yes - HEENT Hx HEENT Problems: Yes Hx Cataracts: Yes Hx Glaucoma: Yes - RENAL Date of Last Dialysis Treatment: 07/27/17 - ENDOCRINE/METABOLIC Hx Hyperthyroidism: Yes Hx Hypothyroidism: Yes - HEMATOLOGICAL/ONCOLOGICAL Hx Anemia: Yes - INTEGUMENTARY Hx Dermatological Problems: Yes Other/Comment: DRY ITCHY SKIN ;multiple/generalized dark spots on skin. left toe blister - MUSCULOSKELETAL/RHEUMATOLOGICAL Hx Falls: No - GASTROINTESTINAL Hx Gall Bladder Disease: Yes (gallbladder removed) Hx Gastritis: Yes Hx Pancreatitis: Yes (chronic) - PSYCHIATRIC Hx Substance Use: No - SURGICAL HISTORY Hx Cholecystectomy: Yes Hx Coronary Stent: Yes - ANESTHESIA Hx Anesthesia: Yes Hx Anesthesia Reactions: No Hx Malignant Hyperthermia: No Has any member of the family had a problem w/ anesthesia?: No Meds Allergies/Adverse Reactions: Allergies Allergy/AdvReac Type Severity Reaction Status Date / Time ketorolac tromethamine Allergy RASH Verified 07/27/17 13:38 [From Toradol] latex Allergy RASH Verified 07/27/17 13:38 morphine Allergy RASH Verified 07/27/17 13:38 tramadol Allergy RASH Verified 07/27/17 13:38 - Medications Medications: Current Medications Calcium Acetate (Phoslo) 667 mg PO TID [facility] Last Admin: 07/29/17 14:04 Dose: 667 mg Clonidine HCl (Catapres) 0.3 mg PO BID [facility] Last Admin: 07/29/17 10:38 Dose: 0.3 mg Diphenhydramine HCl (Benadryl) 25 mg IVP Q8 [facility] Last Admin: 07/29/17 14:05 Dose: 25 mg Fentanyl (Duragesic) 1 patch TD Q72H [facility] Last Admin: 07/27/17 21:40 Dose: 1 patch Gabapentin (Neurontin) 300 mg PO BID [facility] Last Admin: 07/29/17 10:38 Dose: 300 mg Heparin Sodium (Porcine) (Heparin) 5,000 units SC Q8 [facility] Last Admin: 07/29/17 14:04 Dose: 5,000 units Hydromorphone HCl (Dilaudid) 2 mg IVP Q3H [facility] Last Admin: 07/29/17 14:38 Dose: 2 mg Insulin Aspart (Novolog) 0 unit SC ACHS [facility] PRN Reason: Protocol Last Admin: 07/29/17 12:04 Dose: 6 unit Insulin Detemir (Levemir) 12 unit SC Q12 [facility] Last Admin: 07/29/17 10:43 Dose: 12 unit Metoclopramide HCl (Reglan) 10 mg PO DAILY [facility] Last Admin: 07/29/17 10:38 Dose: 10 mg Nifedipine (Procardia Xl) 60 mg PO BID [facility] Last Admin: 07/29/17 10:38 Dose: 60 mg Ondansetron HCl (Zofran Inj) 4 mg IVP Q8 PRN PRN Reason: Nausea/Vomiting Last Admin: 07/29/17 02:56 Dose: 4 mg Pantoprazole Sodium (Protonix Ec Tab) 40 mg PO DAILY [facility] Last Admin: 07/29/17 10:38 Dose: 40 mg Vitamin B Complex/Vit C/Folic Acid (Nephro-Vamshi) 1 tab PO 0800 [facility] Last Admin: 07/29/17 07:56 Dose: 1 tab Physical Exam - Constitutional Appears: Non-toxic, Chronically Ill - Head Exam Head Exam: NORMOCEPHALIC - Eye Exam Eye Exam: PERRL. absent: Scleral icterus - ENT Exam ENT Exam: Mucous Membranes Dry, Normal External Ear Exam - Neck Exam Neck exam: Negative for: Lymphadenopathy - Respiratory Exam Respiratory Exam: Decreased Breath Sounds, Rhonchi - Cardiovascular Exam Cardiovascular Exam: REGULAR RHYTHM, +S1, +S2 - GI/Abdominal Exam GI & Abdominal Exam: Diminished Bowel Sounds, Soft. absent: Tenderness - Rectal Exam Rectal Exam: Deferred - Exam Exam: NORMAL INSPECTION - Extremities Exam Extremities exam: Positive for: pedal edema, tenderness. Negative for: pedal pulses present Additional comments: Vasc: DP and PT 2/4 bilaterally, CFT < 3 seconds x 10 digits, temperature gradient WNL, same mild localized nonpitting swelling noted to the 3rd digits bilaterally Ortho: tenderness noted to the left 3rd digit, less tenderness noted to the right 3rd digit or left hallux. MM is 5/5 in all four compartments in dorsiflexion, plantarflexion, inversion, and eversion Neuro: gross sensation intact, protective sensation diminished Derm: discoloration noted to the 3rd digits b/l, all 3 surgical sites: no erythema, no streaking, no odor, no fluctance, no increase warmth, skin coapted with sutures intact; approximately 1 cc of sangious/purulence drainage expressed from left 3rd digit through surigcal site laterally, no odor noted from the surgical site - Back Exam Back exam: absent: CVA tenderness (L), CVA tenderness (R) - Neurological Exam Neurological exam: Alert, CN II-XII Intact, Oriented x3, Reflexes Normal - Psychiatric Exam Psychiatric exam: Depressed - Skin Skin Exam: Dry Results - Vital Signs Recent Vital Signs: Last Vital Signs Temp 98.2 F 07/29/17 10:08 Pulse 98 H 07/29/17 10:08 Resp 20 07/29/17 10:08 BP 115/68 07/29/17 10:08 Pulse Ox 100 07/29/17 12:45 - Labs Result Diagrams: 07/27/17 15:49 07/27/17 15:49 Labs: Laboratory Results - last 24 hr 07/28/17 07/28/17 07/28/17 16:21 17:31 20:57 POC Glucose (mg/dL) > 500 H* > 500 H* 297 H 07/29/17 07:02 POC Glucose (mg/dL) 187 H Assessment & Plan (1) Diabetic gastroparesis Status: Acute (2) ESRD (end stage renal disease) on dialysis Status: Acute (3) Opioid dependence Status: Acute (4) Accelerated essential hypertension Status: Acute - Assessment and Plan (Free Text) Assessment: cellulitis/ possible om left 3rd toe may need amp iv rx in progress
[2017-07-29] MEDS: Piperacill/Tazo 2.25gm in Dex 2.25 GM/50 ML BAG IVPB SCH (17:43)
--- NOTE | 2017-07-29 22:46 | CP.PCM.CON ---
History of Present Illness - History of Present Illness History of Present Illness: REASONS FOR CONSULT : ESRD ON HD .. IN NEED FOR STAT HD ANEMIA OF CKD .. H/H STABLE ALL EMR REVIEWED .. PT WAS SEEN AND EXAMINED .. SHE RECIEVED A STAT HD TRX 31 y/o female, with PMHx of gastroparesis, ESRD on HD , presents to ED c/o gastroparesis flare up. Pt complaints of abdominal pain, nausea,and vomiting that started this morning. Notes that she did not have dialysis today. Denies fever, or other complaints. Pt has been seen in this ER multiple times in the past for similar complaints. Time Seen by Provider: 07/27/17 13:29 Chief Complaint (Nursing): Abdominal Pain History Per: Patient History/Exam Limitations: no limitations Onset/Duration Of Symptoms: Hrs Current Symptoms Are (Timing): Still Present Location Of Pain/Discomfort: Epigastric Radiation Of Pain To:: None Quality Of Discomfort: "Pain" Associated Symptoms: Nausea, Vomiting. denies: Diarrhea, Loss Of Appetite, Constipation, Urinary Symptoms Exacerbating Factors: None Alleviating Factors: None Recent travel outside of the [place]: No Additional History Per: Patient Abnormal Vaginal Bleeding: No Past Patient History - Infectious Disease Hx of Infectious Diseases: None - Tetanus Immunizations Tetanus Immunization: Unknown - Past Medical History & Family History Past Medical History?: Yes - Past Social History Smoking Status: Unknown If Ever Smoked - CARDIAC Hx Congestive Heart Failure: Yes Hx Hypercholesterolemia: Yes Hx Hypertension: Yes Hx Peripheral Edema: Yes - PULMONARY Hx Asthma: Yes Hx Bronchitis: Yes Hx Pneumonia: Yes Hx Sleep Apnea: Yes - NEUROLOGICAL Hx Seizures: Yes - HEENT Hx HEENT Problems: Yes Hx Cataracts: Yes Hx Glaucoma: Yes - RENAL Date of Last Dialysis Treatment: 07/27/17 - ENDOCRINE/METABOLIC Hx Hyperthyroidism: Yes Hx Hypothyroidism: Yes - HEMATOLOGICAL/ONCOLOGICAL Hx Anemia: Yes - INTEGUMENTARY Hx Dermatological Problems: Yes Other/Comment: DRY ITCHY SKIN ;multiple/generalized dark spots on skin. left toe blister - MUSCULOSKELETAL/RHEUMATOLOGICAL Hx Falls: No - GASTROINTESTINAL Hx Gall Bladder Disease: Yes (gallbladder removed) Hx Gastritis: Yes Hx Pancreatitis: Yes (chronic) - PSYCHIATRIC Hx Substance Use: No - SURGICAL HISTORY Hx Cholecystectomy: Yes Hx Coronary Stent: Yes - ANESTHESIA Hx Anesthesia: Yes Hx Anesthesia Reactions: No Hx Malignant Hyperthermia: No Has any member of the family had a problem w/ anesthesia?: No Meds Allergies/Adverse Reactions: Allergies Allergy/AdvReac Type Severity Reaction Status Date / Time ketorolac tromethamine Allergy RASH Verified 07/27/17 13:38 [From Toradol] latex Allergy RASH Verified 07/27/17 13:38 morphine Allergy RASH Verified 07/27/17 13:38 tramadol Allergy RASH Verified 07/27/17 13:38 - Medications Medications: Current Medications Calcium Acetate (Phoslo) 667 mg PO TID [facility] Last Admin: 07/29/17 17:36 Dose: 667 mg Clonidine HCl (Catapres) 0.3 mg PO BID [facility] Last Admin: 07/29/17 17:35 Dose: 0.3 mg Diphenhydramine HCl (Benadryl) 25 mg IVP Q8 [facility] Last Admin: 07/29/17 21:12 Dose: Not Given Fentanyl (Duragesic) 1 patch TD Q72H [facility] Last Admin: 07/27/17 21:40 Dose: 1 patch Gabapentin (Neurontin) 300 mg PO BID [facility] Last Admin: 07/29/17 17:35 Dose: 300 mg Heparin Sodium (Porcine) (Heparin) 5,000 units SC Q8 [facility] Last Admin: 07/29/17 21:10 Dose: 5,000 units Hydromorphone HCl (Dilaudid) 2 mg IVP Q3H [facility] Last Admin: 07/29/17 20:42 Dose: 2 mg Vancomycin/Sodium Chloride (Vancomycin 1 Gm/Ns 200 Ml) 1 gm in 200 mls @ 133.333 mls/hr IVPB MWF [facility] Piperacillin Sod/Tazobactam Sod (Zosyn 2.25 Gm Iv Premix) 2.25 gm in 50 mls @ 100 mls/hr IVPB Q8H [facility] Last Admin: 07/29/17 17:43 Dose: Not Given Insulin Aspart (Novolog) 0 unit SC ACHS [facility] PRN Reason: Protocol Last Admin: 07/29/17 21:12 Dose: Not Given Insulin Detemir (Levemir) 12 unit SC Q12 [facility] Last Admin: 07/29/17 21:11 Dose: 12 unit Metoclopramide HCl (Reglan) 10 mg PO DAILY [facility] Last Admin: 07/29/17 10:38 Dose: 10 mg Nifedipine (Procardia Xl) 60 mg PO BID [facility] Last Admin: 07/29/17 17:35 Dose: 60 mg Ondansetron HCl (Zofran Inj) 4 mg IVP Q8 PRN PRN Reason: Nausea/Vomiting Last Admin: 07/29/17 02:56 Dose: 4 mg Pantoprazole Sodium (Protonix Ec Tab) 40 mg PO DAILY [facility] Last Admin: 07/29/17 10:38 Dose: 40 mg Vitamin B Complex/Vit C/Folic Acid (Nephro-Vamshi) 1 tab PO 0800 [facility] Last Admin: 07/29/17 07:56 Dose: 1 tab Results - Vital Signs Recent Vital Signs: Last Vital Signs Temp 98.4 F 07/29/17 15:00 Pulse 81 07/29/17 15:00 Resp 20 07/29/17 15:00 BP 124/79 07/29/17 15:00 Pulse Ox 97 07/29/17 15:00 - Labs Result Diagrams: 07/27/17 15:49 07/27/17 15:49 Labs: Laboratory Results - last 24 hr 07/29/17 07/29/17 07/29/17 07:02 11:10 17:05 POC Glucose (mg/dL) 187 H 310 H > 500 H* 07/29/17 07/29/17 17:07 20:34 POC Glucose (mg/dL) > 500 H* 246 H Assessment & Plan - Assessment and Plan (Free Text) Plan: ESRD ON HD M W F .. STAT HD UPON HER ADMIEEION ANEMIA OF CKD .. H/H STABLE MMP P : STAT HD .. DONE .. NEXT WEEK HD M W F ANEMIA OF CKD .. H/H STABLE C/O CURRENT MEDS - Date & Time Date: 07/29/17 Time: 16:00
[2017-07-30] MEDS: Piperacill/Tazo 2.25gm in Dex 2.25 GM/50 ML BAG IVPB SCH ×3 (02:21→17:35)
[2017-07-30] MEDS: DiphenhydrAMINE 50 mg/ml Inj IVP SCH ×3 (05:52→21:34)
[2017-07-30] MEDS: Multivitamin Vitamin B Complex (Nephro-Vite) Tab PO SCH (08:18)
[2017-07-30] MEDS: (Novolog) Insulin Aspart, Recombinant 100 u/ml 10 ml vial SC SCH ×4 (08:22→21:38)
[2017-07-30] MEDS: Pantoprazole 40 mg EC Tab PO SCH ×2 (08:24→10:16)
--- NOTE | 2017-07-30 09:28 | CP.PCM.PN ---
Subjective - Date & Time of Evaluation Date of Evaluation: 07/30/17 Time of Evaluation: 09:28 - Subjective Subjective: Podiatry Progress Note for Dr. Tilley 31 year old female was seen at bedside with attending, Dr. Tilley for toe discoloration and 1 week s/p b/l 3rd digit total nail avulsion and left great toe partial nail avulsion. Patient is seen resting comfortably in bed, NAD, and AA0x3. She denies any n/v/f/c/sob/cp. Objective - Vital Signs/Intake and Output Vital Signs (last 24 hours): Temp Pulse Resp BP Pulse Ox 98.2 F 77 20 150/82 98 07/30/17 08:03 07/30/17 08:03 07/30/17 08:03 07/30/17 08:03 07/30/17 08:03 Intake and Output: 07/30/17 07/30/17 06:59 18:59 Intake Total 1010 Balance 1010 - Medications Medications: Current Medications Calcium Acetate (Phoslo) 667 mg PO TID [facility] Last Admin: 07/30/17 08:23 Dose: 667 mg Clonidine HCl (Catapres) 0.3 mg PO BID [facility] Last Admin: 07/29/17 17:35 Dose: 0.3 mg Diphenhydramine HCl (Benadryl) 25 mg IVP Q8 [facility] Last Admin: 07/30/17 05:52 Dose: 25 mg Fentanyl (Duragesic) 1 patch TD Q72H [facility] Last Admin: 07/27/17 21:40 Dose: 1 patch Gabapentin (Neurontin) 300 mg PO BID [facility] Last Admin: 07/30/17 08:23 Dose: 300 mg Heparin Sodium (Porcine) (Heparin) 5,000 units SC Q8 [facility] Last Admin: 07/30/17 05:52 Dose: 5,000 units Hydromorphone HCl (Dilaudid) 2 mg IVP Q3H [facility] Last Admin: 07/30/17 08:16 Dose: 2 mg Vancomycin/Sodium Chloride (Vancomycin 1 Gm/Ns 200 Ml) 1 gm in 200 mls @ 133.333 mls/hr IVPB MWF [facility] Piperacillin Sod/Tazobactam Sod (Zosyn 2.25 Gm Iv Premix) 2.25 gm in 50 mls @ 100 mls/hr IVPB Q8H [facility] Last Admin: 07/30/17 02:21 Dose: 100 mls/hr Insulin Aspart (Novolog) 0 unit SC ACHS [facility] PRN Reason: Protocol Last Admin: 07/30/17 08:22 Dose: 2 unit Insulin Detemir (Levemir) 12 unit SC Q12 [facility] Last Admin: 07/29/17 21:11 Dose: 12 unit Metoclopramide HCl (Reglan) 10 mg PO DAILY [facility] Last Admin: 07/30/17 08:23 Dose: 10 mg Nifedipine (Procardia Xl) 60 mg PO BID [facility] Last Admin: 07/29/17 17:35 Dose: 60 mg Ondansetron HCl (Zofran Inj) 4 mg IVP Q8 PRN PRN Reason: Nausea/Vomiting Last Admin: 07/29/17 02:56 Dose: 4 mg Pantoprazole Sodium (Protonix Ec Tab) 40 mg PO DAILY [facility] Last Admin: 07/30/17 08:24 Dose: 40 mg Vitamin B Complex/Vit C/Folic Acid (Nephro-Vamshi) 1 tab PO 0800 [facility] Last Admin: 07/30/17 08:18 Dose: 1 tab - Labs Labs: 07/27/17 15:49 07/27/17 15:49 - Constitutional Appears: Well, Non-toxic, No Acute Distress - Extremities Exam Additional comments: lower extremity focused exam: Vasc: DP and PT pulses palpable 2/4 bilaterally, CFT < 3 seconds x 10 digits, temperature gradient WNL, same mild localized non-pitting edema noted to the 3rd digits bilaterally Ortho: tenderness noted to the left 3rd digit, less tenderness noted to the right 3rd digit and left hallux. Neuro: gross sensation intact, protective sensation diminished Derm: discoloration noted to the 3rd digits b/l, all 3 surgical sites: no erythema, no streaking, no odor, no fluctance, no increase warmth, skin coapted with sutures intact, no drainage, no malodor noted - Neurological Exam Neurological Exam: Alert, Awake, Oriented x3 - Psychiatric Exam Psychiatric exam: Normal Affect, Normal Mood Assessment and Plan - Assessment and Plan (Free Text) Assessment: 31 year old female 1.5 week s/p b/l 3rd digit total nail avulsion and left great toe partial nail avulsion Plan: Patient examined and evaluated with attending, Dr. Tilley Charts, labs, vitals reviewed -afebrile Continue IV abx per ID Surgical incisions cleansed with peroxide and dressed with DSD Podiatry will continue to provide local wound care while in house Sutures to be removed on Sunday Will f/u with Dr. Tilley as outpatient
[2017-07-30] MEDS: Vancomycin 1 gm/NS 200 ml 1 GM/200 ML BAG IVPB SCH ×2 (09:33→14:37)
--- NOTE | 2017-07-30 09:35 | CP.PCM.PN ---
Subjective - Date & Time of Evaluation Date of Evaluation: 07/30/17 Time of Evaluation: 09:30 - Subjective Subjective: Progress Note for Dr. Sexton's Service Pt seen and examined at bedside. She continues to complain of diffuse body pains and specific pain in the lower rib girdle on the right. She also complains about pain in her toes. She explains that podiatry has been coming to see her and has been changing the dressing on her feet but she feels like there is an infection still present in the third digit of the right foot. She admits that her pain is well controlled with the current medications. She did run a low grade fever overnight as reported by nursing of 100.4. She denies subjective feeling of fevers/chills/nausea/vomiting/diarrhea/constipation/CP/ SOB. Objective - Vital Signs/Intake and Output Vital Signs (last 24 hours): Temp Pulse Resp BP Pulse Ox 98.2 F 77 20 150/82 98 07/30/17 08:03 07/30/17 08:03 07/30/17 08:03 07/30/17 08:03 07/30/17 08:03 Intake and Output: 07/30/17 07/30/17 06:59 18:59 Intake Total 1010 Balance 1010 - Medications Medications: Current Medications Calcium Acetate (Phoslo) 667 mg PO TID [facility] Last Admin: 07/30/17 08:23 Dose: 667 mg Clonidine HCl (Catapres) 0.3 mg PO BID [facility] Last Admin: 07/29/17 17:35 Dose: 0.3 mg Diphenhydramine HCl (Benadryl) 25 mg IVP Q8 [facility] Last Admin: 07/30/17 05:52 Dose: 25 mg Fentanyl (Duragesic) 1 patch TD Q72H [facility] Last Admin: 07/27/17 21:40 Dose: 1 patch Gabapentin (Neurontin) 300 mg PO BID [facility] Last Admin: 07/30/17 08:23 Dose: 300 mg Heparin Sodium (Porcine) (Heparin) 5,000 units SC Q8 [facility] Last Admin: 07/30/17 05:52 Dose: 5,000 units Hydromorphone HCl (Dilaudid) 2 mg IVP Q3H [facility] Last Admin: 07/30/17 08:16 Dose: 2 mg Vancomycin/Sodium Chloride (Vancomycin 1 Gm/Ns 200 Ml) 1 gm in 200 mls @ 133.333 mls/hr IVPB MWF [facility] Piperacillin Sod/Tazobactam Sod (Zosyn 2.25 Gm Iv Premix) 2.25 gm in 50 mls @ 100 mls/hr IVPB Q8H [facility] Last Admin: 07/30/17 02:21 Dose: 100 mls/hr Insulin Aspart (Novolog) 0 unit SC ACHS [facility] PRN Reason: Protocol Last Admin: 07/30/17 08:22 Dose: 2 unit Insulin Detemir (Levemir) 12 unit SC Q12 [facility] Last Admin: 07/29/17 21:11 Dose: 12 unit Metoclopramide HCl (Reglan) 10 mg PO DAILY [facility] Last Admin: 07/30/17 08:23 Dose: 10 mg Nifedipine (Procardia Xl) 60 mg PO BID [facility] Last Admin: 07/29/17 17:35 Dose: 60 mg Ondansetron HCl (Zofran Inj) 4 mg IVP Q8 PRN PRN Reason: Nausea/Vomiting Last Admin: 07/29/17 02:56 Dose: 4 mg Pantoprazole Sodium (Protonix Ec Tab) 40 mg PO DAILY [facility] Last Admin: 07/30/17 08:24 Dose: 40 mg Vitamin B Complex/Vit C/Folic Acid (Nephro-Main) 1 tab PO 0800 [facility] Last Admin: 07/30/17 08:18 Dose: 1 tab - Labs Labs: 07/27/17 15:49 07/27/17 15:49 - Constitutional Appears: No Acute Distress - Head Exam Head Exam: ATRAUMATIC, NORMAL INSPECTION - Eye Exam Eye Exam: EOMI, Normal appearance - ENT Exam ENT Exam: Mucous Membranes Moist - Respiratory Exam Respiratory Exam: Clear to Ausculation Bilateral, NORMAL BREATHING PATTERN - Cardiovascular Exam Cardiovascular Exam: REGULAR RHYTHM, +S1, +S2 - GI/Abdominal Exam GI & Abdominal Exam: Soft, Normal Bowel Sounds. absent: Tenderness - Extremities Exam Additional comments: dressing on both feet appears c/d/i - Neurological Exam Neurological Exam: Alert, Awake, Oriented x3 - Psychiatric Exam Psychiatric exam: Normal Affect, Normal Mood - Skin Skin Exam: Dry, Intact Assessment and Plan - Assessment and Plan (Free Text) Plan: Sickle Cell Crisis benadryl 25mg IV q8hrs Fentanyl patch 1 patch q72hrs dilaudid 2mg IV q3hrs PICC line ordered Status Post Nail Avulsion with possible infectious complications Podiatry on board; will continue to follow Dr. Pinto on board- recommendations appreciated Zosyn 2.25g q8hrs Vancomycin [address] daily [address]. Phillips is seeing the patient Received emergent HD on admission HD on // Will follow up recommendations nephro-main 1 tablet PO daily Creatinine 8.2 (07/27) Nausea Reglan 10mg PO daily zofran 4mg IV q8hrs DM ISS Levemir 12units SC q12hrs neurontin 300mg PO BID Poorly controlled sugars Continue POC monitoring Consult placed to Dr. Basurto Hepatitis Diagnosed on previous admission AST/ALT (07/27/17) HTN Clonidine 0.3mg PO BID Prophylaxis heparin 5k SC q8hrs Protonix 40mg PO daily Case discussed with Dr. Sexton All management as per Dr. Sexton
[2017-07-30] MEDS: Insulin Detemir 100 units/ml Vial (Levemir) SC SCH ×2 (10:15→11:38)
[2017-07-30] MEDS: NIFEdipine 60 mg ER Tab PO SCH ×2 (10:16→17:33)
[2017-07-30 10:23] LABS: HEMATOCRIT 28.5 % (34.0-47.0); MEAN CORPUSCULAR HEMOGLOBIN 31.1 pg (27.0-31.0); MEAN CORPUSCULAR HGB CONC 31.8 g/dL (33.0-37.0); MEAN PLATELET VOLUME 7.8 fL (7.2-11.7); WHITE BLOOD COUNT 6.7 K/uL (4.8-10.8)
[2017-07-30 10:24] LABS: MEAN CELL VOLUME 97.6 fL (81.0-99.0)
[2017-07-30 11:04] LABS: ALB/GLOB RATIO 0.9 (1.0-2.1); BILIRUBIN,TOTAL 0.4 mg/dL (0.2-1.3); CALCIUM 6.6 mg/dl (8.6-10.4); TOTAL PROTEIN 7.7 g/dL (6.3-8.3)
[2017-07-30] MEDS ORDERED: DiphenhydrAMINE 50 mg/ml Inj IVP ONE ×2 (11:25→13:00)
[2017-07-30] MEDS: Epoetin Alfa 10,000 unit/ml Dialysis IV SCH (13:57)
[2017-07-30] MEDS ORDERED: (Novolog) Insulin Aspart, Recombinant 100 u/ml 10 ml vial SC SCH (16:30)
--- NOTE | 2017-07-30 16:36 | CP.PCM.PN ---
Subjective - Date & Time of Evaluation Date of Evaluation: 07/30/17 Time of Evaluation: 13:00 - Subjective Subjective: SEEN ON RENAL F/U SEEN ON HD TO STERT EPO HGB DOWN TO 9.1 FEELS IMPROVED Objective - Vital Signs/Intake and Output Vital Signs (last 24 hours): Temp Pulse Resp BP Pulse Ox 97.4 F L 67 18 132/82 100 07/30/17 09:55 07/30/17 08:35 07/30/17 09:55 07/30/17 13:15 07/30/17 09:55 Intake and Output: 07/30/17 07/30/17 06:59 18:59 Intake Total 1010 500 Balance 1010 500 - Medications Medications: Current Medications Calcium Acetate (Phoslo) 667 mg PO TID [facility] Last Admin: 07/30/17 14:36 Dose: 667 mg Clonidine HCl (Catapres) 0.3 mg PO BID [facility] Last Admin: 07/30/17 10:15 Dose: Not Given Diphenhydramine HCl (Benadryl) 25 mg IVP Q8 [facility] Last Admin: 07/30/17 14:26 Dose: 25 mg Epoetin James (Procrit) 10,000 unit IV MWF [facility] Stop: 08/10/17 09:01 Last Admin: 07/30/17 13:57 Dose: 10,000 unit Fentanyl (Duragesic) 1 patch TD Q72H [facility] Last Admin: 07/27/17 21:40 Dose: 1 patch Gabapentin (Neurontin) 300 mg PO DAILY [facility] Heparin Sodium (Porcine) (Heparin) 5,000 units SC Q8 [facility] Last Admin: 07/30/17 14:35 Dose: 5,000 units Hydromorphone HCl (Dilaudid) 2 mg IVP Q3H [facility] Last Admin: 07/30/17 14:26 Dose: 2 mg Vancomycin/Sodium Chloride (Vancomycin 1 Gm/Ns 200 Ml) 1 gm in 200 mls @ 133.333 mls/hr IVPB MWF [facility] Last Admin: 07/30/17 14:37 Dose: Not Given Piperacillin Sod/Tazobactam Sod (Zosyn 2.25 Gm Iv Premix) 2.25 gm in 50 mls @ 100 mls/hr IVPB Q8H [facility] Last Admin: 07/30/17 10:16 Dose: Not Given Insulin Aspart (Novolog) 6 unit SC AC [facility] Insulin Aspart (Novolog) 0 unit SC ACHS [facility] PRN Reason: Protocol Insulin Detemir (Levemir) 20 unit SC HS [facility] Metoclopramide HCl (Reglan) 10 mg PO DAILY [facility] Last Admin: 07/30/17 10:16 Dose: Not Given Nifedipine (Procardia Xl) 60 mg PO BID [facility] Last Admin: 07/30/17 10:16 Dose: Not Given Ondansetron HCl (Zofran Inj) 4 mg IVP Q8 PRN PRN Reason: Nausea/Vomiting Last Admin: 07/29/17 02:56 Dose: 4 mg Pantoprazole Sodium (Protonix Ec Tab) 40 mg PO DAILY [facility] Last Admin: 07/30/17 10:16 Dose: Not Given Vitamin B Complex/Vit C/Folic Acid (Nephro-Vamshi) 1 tab PO 0800 [facility] Last Admin: 07/30/17 08:18 Dose: 1 tab - Labs Labs: 07/30/17 10:11 07/30/17 10:11 Assessment and Plan - Assessment and Plan (Free Text) Assessment: ESRD ON HD M W F .. ANEMIA OF CKD ... START EPO MMP P : C/O CURRENT CARE C/O PRESENT MANAGEMENT
--- NOTE | 2017-07-30 19:31 | CP.PCM.PN ---
Subjective - Date & Time of Evaluation Date of Evaluation: 07/30/17 Time of Evaluation: 13:00 - Subjective Subjective: clinically same Objective - Vital Signs/Intake and Output Vital Signs (last 24 hours): Temp Pulse Resp BP Pulse Ox 98.2 F 107 H 20 115/74 100 07/30/17 15:00 07/30/17 15:00 07/30/17 15:00 07/30/17 15:00 07/30/17 15:00 Intake and Output: 07/30/17 07/31/17 18:59 06:59 Intake Total 500 Balance 500 - Medications Medications: Current Medications Calcium Acetate (Phoslo) 667 mg PO TID [facility] Last Admin: 07/30/17 17:29 Dose: 667 mg Clonidine HCl (Catapres) 0.3 mg PO BID [facility] Last Admin: 07/30/17 17:29 Dose: 0.3 mg Diphenhydramine HCl (Benadryl) 25 mg IVP Q8 [facility] Last Admin: 07/30/17 14:26 Dose: 25 mg Epoetin James (Procrit) 10,000 unit IV [facility] Stop: 08/10/17 09:01 Last Admin: 07/30/17 13:57 Dose: 10,000 unit Fentanyl (Duragesic) 1 patch TD Q72H [facility] Last Admin: 07/30/17 17:00 Dose: 1 patch Gabapentin (Neurontin) 300 mg PO DAILY [facility] Heparin Sodium (Porcine) (Heparin) 5,000 units SC Q8 [facility] Last Admin: 07/30/17 14:35 Dose: 5,000 units Hydromorphone HCl (Dilaudid) 2 mg IVP Q3H [facility] Last Admin: 07/30/17 17:27 Dose: 2 mg Vancomycin/Sodium Chloride (Vancomycin 1 Gm/Ns 200 Ml) 1 gm in 200 mls @ 133.333 mls/hr IVPB MWF [facility] Last Admin: 07/30/17 14:37 Dose: Not Given Piperacillin Sod/Tazobactam Sod (Zosyn 2.25 Gm Iv Premix) 2.25 gm in 50 mls @ 100 mls/hr IVPB Q8H [facility] Last Admin: 07/30/17 17:35 Dose: 100 mls/hr Insulin Aspart (Novolog) 6 unit SC AC [facility] Last Admin: 07/30/17 16:30 Dose: 6 unit Insulin Aspart (Novolog) 0 unit SC ACHS [facility] PRN Reason: Protocol Last Admin: 07/30/17 16:30 Dose: Not Given Insulin Detemir (Levemir) 20 unit SC [facility] Metoclopramide HCl (Reglan) 10 mg PO DAILY [facility] Last Admin: 07/30/17 10:16 Dose: Not Given Nifedipine (Procardia Xl) 60 mg PO BID [facility] Last Admin: 07/30/17 17:33 Dose: 60 mg Ondansetron HCl (Zofran Inj) 4 mg IVP Q8 PRN PRN Reason: Nausea/Vomiting Last Admin: 07/29/17 02:56 Dose: 4 mg Pantoprazole Sodium (Protonix Ec Tab) 40 mg PO DAILY [facility] Last Admin: 07/30/17 10:16 Dose: Not Given Vitamin B Complex/Vit C/Folic Acid (Nephro-Vamshi) 1 tab PO 0800 [facility] Last Admin: 07/30/17 08:18 Dose: 1 tab - Labs Labs: 07/30/17 10:11 07/30/17 10:11 - Constitutional Appears: Well - Head Exam Head Exam: ATRAUMATIC, NORMAL INSPECTION, NORMOCEPHALIC - Eye Exam Eye Exam: EOMI, Normal appearance, PERRL Pupil Exam: NORMAL ACCOMODATION, PERRL - ENT Exam ENT Exam: Mucous Membranes Moist, Normal Exam - Neck Exam Neck Exam: Full ROM, Normal Inspection. absent: Lymphadenopathy - Respiratory Exam Respiratory Exam: Decreased Breath Sounds - Cardiovascular Exam Cardiovascular Exam: REGULAR RHYTHM, +S1, +S2 - GI/Abdominal Exam GI & Abdominal Exam: Soft, Diminished Bowel Sounds - Rectal Exam Rectal Exam: Deferred
[2017-07-30] MEDS ORDERED: Insulin Detemir 100 units/ml Vial (Levemir) SC SCH (22:00)
[2017-07-31] MEDS: Piperacill/Tazo 2.25gm in Dex 2.25 GM/50 ML BAG IVPB SCH ×3 (01:40→17:31)
[2017-07-31] MEDS: DiphenhydrAMINE 50 mg/ml Inj IVP SCH ×4 (05:29→23:45)
[2017-07-31] MEDS: (Novolog) Insulin Aspart, Recombinant 100 u/ml 10 ml vial SC SCH ×7 (07:39→21:57)
[2017-07-31] MEDS: Multivitamin Vitamin B Complex (Nephro-Vite) Tab PO SCH (07:55)
[2017-07-31] MEDS: NIFEdipine 60 mg ER Tab PO SCH ×2 (10:20→17:33)
[2017-07-31] MEDS: Pantoprazole 40 mg EC Tab PO SCH (10:20)
--- NOTE | 2017-07-31 11:15 | CP.PCM.PN ---
Subjective - Date & Time of Evaluation Date of Evaluation: 07/31/17 Time of Evaluation: 09:00 - Subjective Subjective: 31 year old female 1.5 week s/p b/l 3rd digit total nail avulsion and left great toe partial nail avulsion Objective - Vital Signs/Intake and Output Vital Signs (last 24 hours): Temp Pulse Resp BP Pulse Ox 98.4 F 87 20 150/76 98 07/31/17 07:28 07/31/17 07:28 07/31/17 07:28 07/31/17 07:28 07/31/17 07:28 Intake and Output: 07/31/17 07/31/17 06:59 18:59 Intake Total 700 Balance 700 - Medications Medications: Current Medications Calcium Acetate (Phoslo) 667 mg PO TID [facility] Last Admin: 07/31/17 10:20 Dose: 667 mg Clonidine HCl (Catapres) 0.3 mg PO BID [facility] Last Admin: 07/31/17 10:20 Dose: 0.3 mg Diphenhydramine HCl (Benadryl) 25 mg IVP Q6 [facility] Docusate Sodium (Colace) 100 mg PO BID [facility] Epoetin James (Procrit) 10,000 unit IV MWF [facility] Stop: 08/10/17 09:01 Last Admin: 07/30/17 13:57 Dose: 10,000 unit Fentanyl (Duragesic) 1 patch TD Q72H [facility] Last Admin: 07/30/17 17:00 Dose: 1 patch Gabapentin (Neurontin) 300 mg PO DAILY [facility] Last Admin: 07/31/17 10:20 Dose: 300 mg Heparin Sodium (Porcine) (Heparin) 5,000 units SC Q8 [facility] Last Admin: 07/31/17 06:19 Dose: Not Given Hydromorphone HCl (Dilaudid) 2 mg IVP Q3H [facility] Last Admin: 07/31/17 08:31 Dose: 2 mg Vancomycin/Sodium Chloride (Vancomycin 1 Gm/Ns 200 Ml) 1 gm in 200 mls @ 133.333 mls/hr IVPB MWF [facility] Last Admin: 07/30/17 14:37 Dose: Not Given Piperacillin Sod/Tazobactam Sod (Zosyn 2.25 Gm Iv Premix) 2.25 gm in 50 mls @ 100 mls/hr IVPB Q8H [facility] Last Admin: 07/31/17 10:19 Dose: 100 mls/hr Insulin Aspart (Novolog) 0 unit SC ACHS [facility] PRN Reason: Protocol Last Admin: 07/31/17 07:39 Dose: Not Given Insulin Aspart (Novolog) 10 unit SC AC [facility] Last Admin: 07/31/17 07:56 Dose: 10 unit Insulin Detemir (Levemir) 20 unit SC HS [facility] Last Admin: 07/30/17 21:36 Dose: 20 unit Metoclopramide HCl (Reglan) 10 mg PO DAILY [facility] Last Admin: 07/31/17 10:20 Dose: 10 mg Nifedipine (Procardia Xl) 60 mg PO BID [facility] Last Admin: 07/31/17 10:20 Dose: 60 mg Ondansetron HCl (Zofran Inj) 4 mg IVP Q8 PRN PRN Reason: Nausea/Vomiting Last Admin: 07/29/17 02:56 Dose: 4 mg Pantoprazole Sodium (Protonix Ec Tab) 40 mg PO DAILY [facility] Last Admin: 07/31/17 10:20 Dose: 40 mg Vitamin B Complex/Vit C/Folic Acid (Nephro-Vamshi) 1 tab PO 0800 [facility] Last Admin: 07/31/17 07:55 Dose: 1 tab - Labs Labs: 07/30/17 10:11 07/30/17 10:11 - Constitutional Appears: Non-toxic - Head Exam Head Exam: NORMOCEPHALIC - Eye Exam Eye Exam: EOMI - ENT Exam ENT Exam: Mucous Membranes Dry - Neck Exam Neck Exam: absent: Lymphadenopathy - Respiratory Exam Respiratory Exam: Decreased Breath Sounds - Cardiovascular Exam Cardiovascular Exam: REGULAR RHYTHM - GI/Abdominal Exam GI & Abdominal Exam: Distended Assessment and Plan (1) Diabetic gastroparesis Status: Acute (2) ESRD (end stage renal disease) on dialysis Status: Acute (3) Opioid dependence Status: Acute (4) Accelerated essential hypertension Status: Acute
--- NOTE | 2017-07-31 12:08 | CP.PCM.PN ---
Subjective - Date & Time of Evaluation Date of Evaluation: 07/31/17 Time of Evaluation: 12:05 - Subjective Subjective: Podiatry Progress Note for Dr. Tilley 31 year old female was seen at bedside for toe discoloration and 1.5 weeks s/p b /l 3rd digit total nail avulsion and left great toe partial nail avulsion. Patient is seen resting comfortably in bed but is very sleep during our conversation. She denies any n/v/f/c/sob/cp. Objective - Vital Signs/Intake and Output Vital Signs (last 24 hours): Temp Pulse Resp BP Pulse Ox 98.4 F 87 20 150/76 98 07/31/17 07:28 07/31/17 07:28 07/31/17 07:28 07/31/17 07:28 07/31/17 07:28 Intake and Output: 07/31/17 07/31/17 06:59 18:59 Intake Total 700 Balance 700 - Medications Medications: Current Medications Calcium Acetate (Phoslo) 667 mg PO TID [facility] Last Admin: 07/31/17 10:20 Dose: 667 mg Clonidine HCl (Catapres) 0.3 mg PO BID [facility] Last Admin: 07/31/17 10:20 Dose: 0.3 mg Diphenhydramine HCl (Benadryl) 25 mg IVP Q6 [facility] Last Admin: 07/31/17 11:24 Dose: 25 mg Docusate Sodium (Colace) 100 mg PO BID [facility] Last Admin: 07/31/17 11:23 Dose: 100 mg Epoetin James (Procrit) 10,000 unit IV MWF [facility] Stop: 08/10/17 09:01 Last Admin: 07/30/17 13:57 Dose: 10,000 unit Fentanyl (Duragesic) 1 patch TD Q72H [facility] Last Admin: 07/30/17 17:00 Dose: 1 patch Gabapentin (Neurontin) 300 mg PO DAILY [facility] Last Admin: 07/31/17 10:20 Dose: 300 mg Heparin Sodium (Porcine) (Heparin) 5,000 units SC Q8 [facility] Last Admin: 07/31/17 06:19 Dose: Not Given Hydromorphone HCl (Dilaudid) 2 mg IVP Q3H [facility] Last Admin: 07/31/17 11:26 Dose: 2 mg Vancomycin/Sodium Chloride (Vancomycin 1 Gm/Ns 200 Ml) 1 gm in 200 mls @ 133.333 mls/hr IVPB MWF [facility] Last Admin: 07/30/17 14:37 Dose: Not Given Piperacillin Sod/Tazobactam Sod (Zosyn 2.25 Gm Iv Premix) 2.25 gm in 50 mls @ 100 mls/hr IVPB Q8H [facility] Last Admin: 07/31/17 10:19 Dose: 100 mls/hr Insulin Aspart (Novolog) 0 unit SC ACHS [facility] PRN Reason: Protocol Last Admin: 07/31/17 11:19 Dose: Not Given Insulin Aspart (Novolog) 10 unit SC AC [facility] Last Admin: 07/31/17 11:23 Dose: 10 unit Insulin Detemir (Levemir) 20 unit SC HS [facility] Last Admin: 07/30/17 21:36 Dose: 20 unit Metoclopramide HCl (Reglan) 10 mg PO DAILY [facility] Last Admin: 07/31/17 10:20 Dose: 10 mg Nifedipine (Procardia Xl) 60 mg PO BID [facility] Last Admin: 07/31/17 10:20 Dose: 60 mg Ondansetron HCl (Zofran Inj) 4 mg IVP Q8 PRN PRN Reason: Nausea/Vomiting Last Admin: 07/29/17 02:56 Dose: 4 mg Pantoprazole Sodium (Protonix Ec Tab) 40 mg PO DAILY [facility] Last Admin: 07/31/17 10:20 Dose: 40 mg Vitamin B Complex/Vit C/Folic Acid (Nephro-Vamshi) 1 tab PO 0800 [facility] Last Admin: 07/31/17 07:55 Dose: 1 tab - Labs Labs: 07/30/17 10:11 07/30/17 10:11 - Constitutional Appears: Non-toxic, No Acute Distress - Extremities Exam Additional comments: lower extremity focused exam: Vasc: DP and PT pulses palpable 2/4 bilaterally, CFT < 3 seconds x 10 digits, temperature gradient WNL, same mild localized non-pitting edema noted to the 3rd digits bilaterally Ortho: tenderness noted to the left 3rd digit, less tenderness noted to the right 3rd digit and left hallux. Neuro: gross sensation intact, protective sensation diminished Derm: discoloration noted to the 3rd digits b/l, all 3 surgical sites: no erythema, no streaking, no odor, no fluctance, no increase warmth, skin coapted with sutures intact, no scant amount of drainage noted to the left 3rd digit lateral aspect, no malodor noted - Neurological Exam Neurological Exam: Awake - Psychiatric Exam Psychiatric exam: Normal Affect, Normal Mood Assessment and Plan - Assessment and Plan (Free Text) Assessment: 31 year old female 1.5 week s/p b/l 3rd digit total nail avulsion and left great toe partial nail avulsion Plan: Patient examined and evaluated with attending, Dr. Tilley Charts, labs, vitals reviewed -afebrile, WBC 6.7 (07/30/17) Continue IV abx per ID Surgical incisions cleansed with peroxide and dressed with DSD Podiatry will continue to provide local wound care while in house Sutures to be removed on Sunday Will f/u with Dr. Tilley as outpatient
--- NOTE | 2017-07-31 14:21 | CP.PCM.PN ---
Subjective - Date & Time of Evaluation Date of Evaluation: 07/31/17 Time of Evaluation: 14:12 - Subjective Subjective: Progress Note for Dr. Sexton's Service Pt seen and examined at bedside. She continues to complain of diffuse pain that is 10/10 when she is not medicated. She complains of pain in her feet and states that podiatry came earlier today to look at them and dressed them. She denies any acute events overnight last night. Denies F/C/N/V/D/C/CP/SOB. Objective - Vital Signs/Intake and Output Vital Signs (last 24 hours): Temp Pulse Resp BP Pulse Ox 98.4 F 87 20 150/76 98 07/31/17 07:28 07/31/17 07:28 07/31/17 07:28 07/31/17 07:28 07/31/17 07:28 Intake and Output: 07/31/17 07/31/17 06:59 18:59 Intake Total 700 Balance 700 - Medications Medications: Current Medications Calcium Acetate (Phoslo) 667 mg PO TID [facility] Last Admin: 07/31/17 10:20 Dose: 667 mg Clonidine HCl (Catapres) 0.3 mg PO BID [facility] Last Admin: 07/31/17 10:20 Dose: 0.3 mg Diphenhydramine HCl (Benadryl) 25 mg IVP Q6 [facility] Last Admin: 07/31/17 11:24 Dose: 25 mg Docusate Sodium (Colace) 100 mg PO BID [facility] Last Admin: 07/31/17 11:23 Dose: 100 mg Epoetin James (Procrit) 10,000 unit IV MWF [facility] Stop: 08/10/17 09:01 Last Admin: 07/30/17 13:57 Dose: 10,000 unit Fentanyl (Duragesic) 1 patch TD Q72H [facility] Last Admin: 07/30/17 17:00 Dose: 1 patch Gabapentin (Neurontin) 300 mg PO DAILY [facility] Last Admin: 07/31/17 10:20 Dose: 300 mg Heparin Sodium (Porcine) (Heparin) 5,000 units SC Q8 [facility] Last Admin: 07/31/17 06:19 Dose: Not Given Hydromorphone HCl (Dilaudid) 2 mg IVP Q3H [facility] Last Admin: 07/31/17 11:26 Dose: 2 mg Vancomycin/Sodium Chloride (Vancomycin 1 Gm/Ns 200 Ml) 1 gm in 200 mls @ 133.333 mls/hr IVPB MWF [facility] Last Admin: 07/30/17 14:37 Dose: Not Given Piperacillin Sod/Tazobactam Sod (Zosyn 2.25 Gm Iv Premix) 2.25 gm in 50 mls @ 100 mls/hr IVPB Q8H [facility] Last Admin: 07/31/17 10:19 Dose: 100 mls/hr Insulin Aspart (Novolog) 0 unit SC ACHS [facility] PRN Reason: Protocol Last Admin: 07/31/17 11:19 Dose: Not Given Insulin Aspart (Novolog) 10 unit SC AC [facility] Last Admin: 07/31/17 11:23 Dose: 10 unit Insulin Detemir (Levemir) 24 unit SC HS [facility] Metoclopramide HCl (Reglan) 10 mg PO DAILY [facility] Last Admin: 07/31/17 10:20 Dose: 10 mg Nifedipine (Procardia Xl) 60 mg PO BID [facility] Last Admin: 07/31/17 10:20 Dose: 60 mg Ondansetron HCl (Zofran Inj) 4 mg IVP Q8 PRN PRN Reason: Nausea/Vomiting Last Admin: 07/29/17 02:56 Dose: 4 mg Pantoprazole Sodium (Protonix Ec Tab) 40 mg PO DAILY [facility] Last Admin: 07/31/17 10:20 Dose: 40 mg Vitamin B Complex/Vit C/Folic Acid (Nephro-Main) 1 tab PO 0800 [facility] Last Admin: 07/31/17 07:55 Dose: 1 tab - Labs Labs: 07/30/17 10:11 07/30/17 10:11 - Constitutional Appears: No Acute Distress - Head Exam Head Exam: ATRAUMATIC, NORMAL INSPECTION - Eye Exam Eye Exam: EOMI - ENT Exam ENT Exam: Mucous Membranes Moist - Respiratory Exam Respiratory Exam: Clear to Ausculation Bilateral, NORMAL BREATHING PATTERN - Cardiovascular Exam Cardiovascular Exam: REGULAR RHYTHM, +S1, +S2 - GI/Abdominal Exam GI & Abdominal Exam: Soft, Normal Bowel Sounds. absent: Tenderness - Neurological Exam Neurological Exam: Alert, Awake, Oriented x3 - Skin Skin Exam: Dry, Intact, Warm Assessment and Plan - Assessment and Plan (Free Text) Plan: Sickle Cell Crisis benadryl 25mg IV q6hrs Fentanyl patch 1 patch q72hrs dilaudid 2mg IV q3hrs PICC line ordered 07/30 Status Post Nail Avulsion with possible infectious complications Podiatry on board; will continue to follow Dr. Pinto on board- recommendations appreciated Zosyn 2.25g q8hrs Vancomycin 1g daily ESRD [address]. Phillips is seeing the patient Received emergent HD on admission HD on // Will follow up recommendations nephro-main 1 tablet PO daily Procrit Creatinine 8.2 (07/27) Nausea Reglan 10mg PO daily zofran 4mg IV q8hrs DM ISS Levemir 12units SC q12hrs neurontin 300mg PO BID Poorly controlled sugars Continue POC monitoring Consult placed to Dr. Basurto 07/30 Hepatitis Diagnosed on previous admission AST/ALT (07/27/17) HTN Clonidine 0.3mg PO BID Prophylaxis heparin 5k SC q8hrs Protonix 40mg PO daily Colace Case discussed with Dr. Sexton All management as per Dr. Sexton
--- NOTE | 2017-07-31 14:37 | PN ---
ENDOCRINOLOGY FOLLOWUP NOTE LOCATION: Room 360. SUBJECTIVE: This is a 31-year-old female with recent uncontrolled type 1 insulin-dependent diabetes, now being followed closely for metabolic management. Her glycemic levels are fluctuating and also her oral intake remains quite variable at this time as per the nursing staff. Her glucose values have ranged from 140 to 252 mg/dL today as noted. It was 323 at bedtime last night. The latest chemistry shows a BUN of 46, sodium 130, potassium 5.0, chloride 92, CO2 of 28, glucose 356 and creatinine 7.9. So at this time, we will modify once again her basal insulin and increase the Levemir to 24 units subcu at bedtime daily to start tonight. We will continue the Humalog given as 10 units subcu t.i.d. before meals as ordered to allow for dose equilibration especially in the light of very variable and suboptimal meal portions at this time. We will obtain serial chemistries and supplement accordingly as needed. We will also continue the low-dose correction scale using Humalog insulin as ordered to obviate hypoglycemia. Detailed ordered have been given. We will follow. Beatriz Basurto MD
--- NOTE | 2017-07-31 17:41 | CP.PCM.PN ---
Subjective - Date & Time of Evaluation Date of Evaluation: 07/31/17 Time of Evaluation: 15:00 - Subjective Subjective: SEEN ON RENAL F/U STILL WITH PAINS ABOVE NOTED ON HD M W F AND SAT Objective - Vital Signs/Intake and Output Vital Signs (last 24 hours): Temp Pulse Resp BP Pulse Ox 97 F L 81 20 125/80 98 07/31/17 15:00 07/31/17 15:00 07/31/17 15:00 07/31/17 15:00 07/31/17 15:00 Intake and Output: 07/31/17 07/31/17 06:59 18:59 Intake Total 700 450 Balance 700 450 - Medications Medications: Current Medications Calcium Acetate (Phoslo) 667 mg PO TID [facility] Last Admin: 07/31/17 17:28 Dose: 667 mg Clonidine HCl (Catapres) 0.3 mg PO BID [facility] Last Admin: 07/31/17 17:28 Dose: 0.3 mg Diphenhydramine HCl (Benadryl) 25 mg IVP Q6 [facility] Last Admin: 07/31/17 17:29 Dose: 25 mg Docusate Sodium (Colace) 100 mg PO BID [facility] Last Admin: 07/31/17 11:23 Dose: 100 mg Epoetin James (Procrit) 10,000 unit IV MWF [facility] Stop: 08/10/17 09:01 Last Admin: 07/30/17 13:57 Dose: 10,000 unit Gabapentin (Neurontin) 300 mg PO DAILY [facility] Last Admin: 07/31/17 10:20 Dose: 300 mg Heparin Sodium (Porcine) (Heparin) 5,000 units SC Q8 [facility] Last Admin: 07/31/17 14:23 Dose: 5,000 units Hydromorphone HCl (Dilaudid) 2 mg IVP Q3H [facility] Last Admin: 07/31/17 17:28 Dose: 2 mg Vancomycin/Sodium Chloride (Vancomycin 1 Gm/Ns 200 Ml) 1 gm in 200 mls @ 133.333 mls/hr IVPB MWF [facility] Last Admin: 07/30/17 14:37 Dose: Not Given Piperacillin Sod/Tazobactam Sod (Zosyn 2.25 Gm Iv Premix) 2.25 gm in 50 mls @ 100 mls/hr IVPB Q8H [facility] Last Admin: 07/31/17 17:31 Dose: Not Given Insulin Aspart (Novolog) 0 unit SC ACHS [facility] PRN Reason: Protocol Last Admin: 07/31/17 16:30 Dose: Not Given Insulin Aspart (Novolog) 10 unit SC AC [facility] Last Admin: 07/31/17 16:30 Dose: 10 unit Insulin Detemir (Levemir) 24 unit SC HS [facility] Metoclopramide HCl (Reglan) 10 mg PO DAILY [facility] Last Admin: 07/31/17 10:20 Dose: 10 mg Nifedipine (Procardia Xl) 60 mg PO BID [facility] Last Admin: 07/31/17 17:33 Dose: 60 mg Ondansetron HCl (Zofran Inj) 4 mg IVP Q8 PRN PRN Reason: Nausea/Vomiting Last Admin: 07/29/17 02:56 Dose: 4 mg Pantoprazole Sodium (Protonix Ec Tab) 40 mg PO DAILY [facility] Last Admin: 07/31/17 10:20 Dose: 40 mg Vitamin B Complex/Vit C/Folic Acid (Nephro-Vamshi) 1 tab PO 0800 [facility] Last Admin: 07/31/17 07:55 Dose: 1 tab - Labs Labs: 07/30/17 10:11 07/30/17 10:11 Assessment and Plan - Assessment and Plan (Free Text) Assessment: ESRD ON HD M W F AND SAT ANEMIA OF CKD .. ON EPO MMP P : C/O CURRENT CARE C/O PRESENT MEDS
--- NOTE | 2017-07-31 19:12 | CP.PCM.PN ---
Subjective - Date & Time of Evaluation Date of Evaluation: 07/31/17 Time of Evaluation: 08:00 - Subjective Subjective: clinically same Objective - Vital Signs/Intake and Output Vital Signs (last 24 hours): Temp Pulse Resp BP Pulse Ox 97 F L 81 20 125/80 98 07/31/17 15:00 07/31/17 15:00 07/31/17 15:00 07/31/17 15:00 07/31/17 15:00 Intake and Output: 07/31/17 08/01/17 18:59 06:59 Intake Total 450 Balance 450 - Medications Medications: Current Medications Calcium Acetate (Phoslo) 667 mg PO TID [facility] Last Admin: 07/31/17 17:28 Dose: 667 mg Clonidine HCl (Catapres) 0.3 mg PO BID [facility] Last Admin: 07/31/17 17:28 Dose: 0.3 mg Diphenhydramine HCl (Benadryl) 25 mg IVP Q6 [facility] Last Admin: 07/31/17 17:29 Dose: 25 mg Docusate Sodium (Colace) 100 mg PO BID [facility] Last Admin: 07/31/17 11:23 Dose: 100 mg Epoetin James (Procrit) 10,000 unit IV MWF [facility] Stop: 08/10/17 09:01 Last Admin: 07/30/17 13:57 Dose: 10,000 unit Gabapentin (Neurontin) 300 mg PO DAILY [facility] Last Admin: 07/31/17 10:20 Dose: 300 mg Heparin Sodium (Porcine) (Heparin) 5,000 units SC Q8 [facility] Last Admin: 07/31/17 14:23 Dose: 5,000 units Hydromorphone HCl (Dilaudid) 2 mg IVP Q3H [facility] Last Admin: 07/31/17 17:28 Dose: 2 mg Vancomycin/Sodium Chloride (Vancomycin 1 Gm/Ns 200 Ml) 1 gm in 200 mls @ 133.333 mls/hr IVPB MWF [facility] Last Admin: 07/30/17 14:37 Dose: Not Given Piperacillin Sod/Tazobactam Sod (Zosyn 2.25 Gm Iv Premix) 2.25 gm in 50 mls @ 100 mls/hr IVPB Q8H [facility] Last Admin: 07/31/17 17:31 Dose: Not Given Insulin Aspart (Novolog) 0 unit SC ACHS [facility] PRN Reason: Protocol Last Admin: 07/31/17 16:30 Dose: Not Given Insulin Aspart (Novolog) 10 unit SC AC [facility] Last Admin: 07/31/17 16:30 Dose: 10 unit Insulin Detemir (Levemir) 24 unit SC HS [facility] Metoclopramide HCl (Reglan) 10 mg PO DAILY [facility] Last Admin: 07/31/17 10:20 Dose: 10 mg Nifedipine (Procardia Xl) 60 mg PO BID [facility] Last Admin: 07/31/17 17:33 Dose: 60 mg Ondansetron HCl (Zofran Inj) 4 mg IVP Q8 PRN PRN Reason: Nausea/Vomiting Last Admin: 07/29/17 02:56 Dose: 4 mg Pantoprazole Sodium (Protonix Ec Tab) 40 mg PO DAILY [facility] Last Admin: 07/31/17 10:20 Dose: 40 mg Vitamin B Complex/Vit C/Folic Acid (Nephro-Vamshi) 1 tab PO 0800 [facility] Last Admin: 07/31/17 07:55 Dose: 1 tab - Labs Labs: 07/30/17 10:11 07/30/17 10:11 - Constitutional Appears: Well - Head Exam Head Exam: ATRAUMATIC, NORMAL INSPECTION, NORMOCEPHALIC - Eye Exam Eye Exam: EOMI, Normal appearance, PERRL Pupil Exam: NORMAL ACCOMODATION, PERRL - ENT Exam ENT Exam: Mucous Membranes Moist, Normal Exam - Neck Exam Neck Exam: Full ROM, Normal Inspection. absent: Lymphadenopathy - Respiratory Exam Respiratory Exam: Decreased Breath Sounds - Cardiovascular Exam Cardiovascular Exam: REGULAR RHYTHM, +S1, +S2 - GI/Abdominal Exam GI & Abdominal Exam: Soft, Diminished Bowel Sounds - Rectal Exam Rectal Exam: Deferred
[2017-07-31] MEDS ORDERED: Insulin Detemir 100 units/ml Vial (Levemir) SC SCH (22:00)
[2017-08-01] MEDS: Piperacill/Tazo 2.25gm in Dex 2.25 GM/50 ML BAG IVPB SCH ×3 (03:03→19:00)
[2017-08-01] MEDS: DiphenhydrAMINE 50 mg/ml Inj IVP SCH ×4 (05:41→23:32)
[2017-08-01] MEDS: Multivitamin Vitamin B Complex (Nephro-Vite) Tab PO SCH (08:03)
[2017-08-01] MEDS: Pantoprazole 40 mg EC Tab PO SCH ×2 (08:05→12:01)
[2017-08-01] MEDS: (Novolog) Insulin Aspart, Recombinant 100 u/ml 10 ml vial SC SCH ×6 (08:12→21:56)
[2017-08-01] MEDS ORDERED: Epoetin Alfa 10,000 unit/ml Dialysis IV SCH (09:00)
--- NOTE | 2017-08-01 09:38 | CP.PCM.PN ---
Subjective - Date & Time of Evaluation Date of Evaluation: 08/01/17 Time of Evaluation: 09:38 - Subjective Subjective: Podiatry Progress Note for Dr. Tilley 31 year old female was seen at bedside for toe discoloration and 2 weeks s/p b/ l 3rd digit total nail avulsion and left great toe partial nail avulsion. Patient is seen resting comfortably in bed. Admits to some pain to her left foot. She denies any n/v/f/c/sob/cp. Objective - Vital Signs/Intake and Output Vital Signs (last 24 hours): Temp Pulse Resp BP Pulse Ox 97.7 F 77 20 147/84 99 08/01/17 08:35 08/01/17 08:35 08/01/17 08:35 08/01/17 08:35 08/01/17 08:35 Intake and Output: 08/01/17 08/01/17 06:59 18:59 Intake Total 240 Balance 240 - Medications Medications: Current Medications Calcium Acetate (Phoslo) 667 mg PO TID [facility] Last Admin: 08/01/17 08:05 Dose: 667 mg Clonidine HCl (Catapres) 0.3 mg PO BID [facility] Last Admin: 07/31/17 17:28 Dose: 0.3 mg Diphenhydramine HCl (Benadryl) 25 mg IVP Q6 [facility] Last Admin: 08/01/17 05:41 Dose: 25 mg Docusate Sodium (Colace) 100 mg PO BID [facility] Last Admin: 07/31/17 18:00 Dose: 100 mg Epoetin James (Procrit) 10,000 unit IV F [facility] Stop: 08/10/17 09:01 Last Admin: 07/30/17 13:57 Dose: 10,000 unit Gabapentin (Neurontin) 300 mg PO DAILY [facility] Last Admin: 08/01/17 08:05 Dose: 300 mg Heparin Sodium (Porcine) (Heparin) 5,000 units SC Q8 [facility] Last Admin: 08/01/17 05:45 Dose: 5,000 units Hydromorphone HCl (Dilaudid) 2 mg IVP Q3H [facility] Last Admin: 08/01/17 08:29 Dose: 2 mg Vancomycin/Sodium Chloride (Vancomycin 1 Gm/Ns 200 Ml) 1 gm in 200 mls @ 133.333 mls/hr IVPB MWF [facility] Last Admin: 07/30/17 14:37 Dose: Not Given Piperacillin Sod/Tazobactam Sod (Zosyn 2.25 Gm Iv Premix) 2.25 gm in 50 mls @ 100 mls/hr IVPB Q8H [facility] Last Admin: 08/01/17 03:03 Dose: Not Given Insulin Aspart (Novolog) 0 unit SC ACHS [facility] PRN Reason: Protocol Last Admin: 08/01/17 08:12 Dose: 10 unit Insulin Aspart (Novolog) 10 unit SC AC [facility] Last Admin: 08/01/17 08:12 Dose: 10 unit Insulin Detemir (Levemir) 24 unit SC HS [facility] Last Admin: 07/31/17 22:00 Dose: 24 unit Metoclopramide HCl (Reglan) 10 mg PO DAILY [facility] Last Admin: 08/01/17 08:04 Dose: 10 mg Nifedipine (Procardia Xl) 60 mg PO BID [facility] Last Admin: 07/31/17 17:33 Dose: 60 mg Ondansetron HCl (Zofran Inj) 4 mg IVP Q8 PRN PRN Reason: Nausea/Vomiting Last Admin: 07/29/17 02:56 Dose: 4 mg Pantoprazole Sodium (Protonix Ec Tab) 40 mg PO DAILY [facility] Last Admin: 08/01/17 08:05 Dose: 40 mg Vitamin B Complex/Vit C/Folic Acid (Nephro-Vamshi) 1 tab PO 0800 [facility] Last Admin: 08/01/17 08:03 Dose: 1 tab - Labs Labs: 07/30/17 10:11 07/30/17 10:11 - Constitutional Appears: Well, Non-toxic, No Acute Distress - Extremities Exam Additional comments: lower extremity focused exam: Vasc: DP and PT pulses palpable 2/4 bilaterally, CFT < 3 seconds x 10 digits, temperature gradient WNL, same mild localized non-pitting edema noted to the 3rd digits bilaterally Ortho: tenderness noted to the left 3rd digit, less tenderness noted to the right 3rd digit and left hallux. Neuro: gross sensation intact, protective sensation diminished Derm: discoloration noted to the 3rd digits b/l, all 3 surgical sites: no erythema, no streaking, no odor, no fluctance, no increase warmth, skin coapted with sutures intact, open wound measuring approximately 0.2 cm by 0.2 cm x 0.1 cm noted to the lateral incision site of the left 3rd digit with hyperkeratotic border, scant amount of drainage noted to the left 3rd digit lateral aspect, no malodor noted - Neurological Exam Neurological Exam: Alert, Awake, Oriented x3 - Psychiatric Exam Psychiatric exam: Normal Affect, Normal Mood Assessment and Plan - Assessment and Plan (Free Text) Assessment: 31 year old female 2 week s/p b/l 3rd digit total nail avulsion and left great toe partial nail avulsion Plan: Patient examined and evaluated with attending, Dr. Tilley Charts, labs, vitals reviewed -afebrile Continue IV abx per ID Surgical incisions cleansed with peroxide and dressed with DSD Sutures removed from right 3rd digit, lateral sutures removed from left 3rd digit, rest of sutures will be removed later as patient requested to stop for the day Podiatry will continue to follow patient in house Will f/u with Dr. Tilley as outpatient
[2017-08-01] MEDS: NIFEdipine 60 mg ER Tab PO SCH ×2 (12:00→17:53)
[2017-08-01] MEDS: Vancomycin 1 gm/NS 200 ml 1 GM/200 ML BAG IVPB SCH ×2 (12:01→21:54)
--- NOTE | 2017-08-01 12:57 | CP.PCM.PN ---
Subjective - Date & Time of Evaluation Date of Evaluation: 08/01/17 Time of Evaluation: 09:00 - Subjective Subjective: Progress Note for Dr. Sexton's Service Pt seen and examined at bedside. She continues to complain of diffuse pain that is 10/10 when she is not medicated. She complains of pain in her feet and states that podiatry came earlier today to remove the sutues. She denies any acute events overnight last night. Denies F/C/N/V/D/C/CP/SOB. She states that 2 weeks ago she fell and is worried that she broke her ribs in the right side of her chest under her breast. She states that she had an Xray done which was negative but she is requesting a new Xray to "make sure they aren't more broken and need a cast." She was requesting more pain medication for this. Objective - Vital Signs/Intake and Output Vital Signs (last 24 hours): Temp Pulse Resp BP Pulse Ox 97.7 F 77 20 147/84 99 08/01/17 08:35 08/01/17 08:35 08/01/17 08:35 08/01/17 08:35 08/01/17 08:35 Intake and Output: 08/01/17 08/01/17 06:59 18:59 Intake Total 240 Balance 240 - Medications Medications: Current Medications Calcium Acetate (Phoslo) 667 mg PO TID [facility] Last Admin: 08/01/17 12:00 Dose: Not Given Clonidine HCl (Catapres) 0.3 mg PO BID [facility] Last Admin: 08/01/17 11:57 Dose: Not Given Diphenhydramine HCl (Benadryl) 25 mg IVP Q6 [facility] Last Admin: 08/01/17 11:50 Dose: 25 mg Docusate Sodium (Colace) 100 mg PO BID [facility] Last Admin: 08/01/17 10:00 Dose: 100 mg Epoetin James (Procrit) 10,000 unit IV MWF [facility] Stop: 08/10/17 09:01 Last Admin: 07/30/17 13:57 Dose: 10,000 unit Gabapentin (Neurontin) 300 mg PO DAILY [facility] Last Admin: 08/01/17 11:58 Dose: Not Given Heparin Sodium (Porcine) (Heparin) 5,000 units SC Q8 [facility] Last Admin: 08/01/17 05:45 Dose: 5,000 units Hydromorphone HCl (Dilaudid) 2 mg IVP Q3H [facility] Last Admin: 08/01/17 11:50 Dose: 2 mg Vancomycin/Sodium Chloride (Vancomycin 1 Gm/Ns 200 Ml) 1 gm in 200 mls @ 133.333 mls/hr IVPB MWF [facility] Last Admin: 08/01/17 12:01 Dose: Not Given Piperacillin Sod/Tazobactam Sod (Zosyn 2.25 Gm Iv Premix) 2.25 gm in 50 mls @ 100 mls/hr IVPB Q8H [facility] Last Admin: 08/01/17 10:00 Dose: Not Given Insulin Aspart (Novolog) 0 unit SC ACHS [facility] PRN Reason: Protocol Last Admin: 08/01/17 11:57 Dose: Not Given Insulin Aspart (Novolog) 10 unit SC AC [facility] Last Admin: 08/01/17 11:59 Dose: 10 unit Insulin Detemir (Levemir) 24 unit SC HS [facility] Last Admin: 07/31/17 22:00 Dose: 24 unit Metoclopramide HCl (Reglan) 10 mg PO DAILY [facility] Last Admin: 08/01/17 12:01 Dose: Not Given Nifedipine (Procardia Xl) 60 mg PO BID [facility] Last Admin: 08/01/17 12:00 Dose: Not Given Ondansetron HCl (Zofran Inj) 4 mg IVP Q8 PRN PRN Reason: Nausea/Vomiting Last Admin: 07/29/17 02:56 Dose: 4 mg Pantoprazole Sodium (Protonix Ec Tab) 40 mg PO DAILY [facility] Last Admin: 08/01/17 12:01 Dose: Not Given Vitamin B Complex/Vit C/Folic Acid (Nephro-Main) 1 tab PO 0800 [facility] Last Admin: 08/01/17 08:03 Dose: 1 tab - Labs Labs: 07/30/17 10:11 07/30/17 10:11 - Constitutional Appears: Non-toxic, No Acute Distress, Chronically Ill - Head Exam Head Exam: ATRAUMATIC, NORMAL INSPECTION - Eye Exam Eye Exam: EOMI - ENT Exam ENT Exam: Mucous Membranes Moist - Respiratory Exam Respiratory Exam: Clear to Ausculation Bilateral, NORMAL BREATHING PATTERN. absent: Respiratory Distress - Cardiovascular Exam Cardiovascular Exam: REGULAR RHYTHM, +S1, +S2 - GI/Abdominal Exam GI & Abdominal Exam: Soft, Normal Bowel Sounds. absent: Distended, Firm, Guarding, Tenderness - Back Exam Back Exam: NORMAL INSPECTION - Neurological Exam Neurological Exam: Alert, Awake, Oriented x3 - Psychiatric Exam Psychiatric exam: Normal Affect, Normal Mood - Skin Skin Exam: Dry, Intact, Normal Color, Warm Assessment and Plan - Assessment and Plan (Free Text) Assessment: Per ID will need two more weeks of Vancomycin with Dialysis. Sickle Cell Crisis benadryl 25mg IV q6hrs Fentanyl patch 1 patch q72hrs dilaudid 2mg IV q3hrs PICC line ordered 07/30 Status Post Nail Avulsion with possible infectious complications Podiatry on board; will continue to follow Dr. Pinto on board- recommendations appreciated Zosyn 2.25g q8hrs Vancomycin [address]. Phillips is seeing the patient Received emergent HD on admission HD on // Will follow up recommendations nephro-main 1 tablet PO daily Procrit Creatinine 8.2 (07/27) Nausea Reglan 10mg PO daily zofran 4mg IV q8hrs DM ISS Levemir 12units SC q12hrs neurontin 300mg PO BID Poorly controlled sugars Continue POC monitoring Consult placed to Dr. Basurto 07/30 Hepatitis Diagnosed on previous admission AST/ALT (07/27/17) HTN Clonidine 0.3mg PO BID Prophylaxis heparin 5k SC q8hrs Protonix 40mg PO daily Colace Case discussed with Dr. Sexton All management as per Dr. Sexton
[2017-08-01] MEDS ORDERED: DiphenhydrAMINE 50 mg/ml Inj IVP ONE (14:30)
[2017-08-01 14:34] LABS: BASO # 0.1 K/uL (0.0-0.2); BASO % 1.3 % (0.0-2.0); EOS # 0.7 K/uL (0.0-0.7); EOS % 10.3 % (0.0-4.0); LYMPH # 1.5 K/uL (1.0-4.3); LYMPH % 22.1 % (20.0-40.0); MEAN CELL VOLUME 97.5 fL (81.0-99.0); MEAN CORPUSCULAR HEMOGLOBIN 32.5 pg (27.0-31.0); MEAN CORPUSCULAR HGB CONC 33.3 g/dL (33.0-37.0); MEAN PLATELET VOLUME 8.1 fL (7.2-11.7); MONO # 0.6 K/uL (0.0-0.8); MONO % 8.8 % (0.0-10.0); NRBC % 0.1 % (0.0-2.0); WHITE BLOOD COUNT 6.8 K/uL (4.8-10.8)
[2017-08-01] MEDS: Epoetin Alfa 10,000 unit/ml Dialysis IV SCH (14:37)
[2017-08-01 15:23] LABS: ALB/GLOB RATIO 0.9 (1.0-2.1); BILIRUBIN,TOTAL 0.5 mg/dL (0.2-1.3); CALCIUM 7.7 mg/dl (8.6-10.4); PHOSPHOROUS 6.6 mg/dL (2.5-4.5); POTASSIUM 5.2 mmol/L (3.6-5.2); TOTAL PROTEIN 7.9 g/dL (6.3-8.3)
--- NOTE | 2017-08-01 18:08 | CP.PCM.PN ---
Subjective - Date & Time of Evaluation Date of Evaluation: 08/01/17 Time of Evaluation: 10:00 - Subjective Subjective: improving afebrile nad Objective - Vital Signs/Intake and Output Vital Signs (last 24 hours): Temp Pulse Resp BP Pulse Ox 97.6 F 103 H 18 148/76 100 08/01/17 17:15 08/01/17 17:15 08/01/17 17:15 08/01/17 17:15 08/01/17 17:15 Intake and Output: 08/01/17 08/01/17 06:59 18:59 Intake Total 240 Balance 240 - Medications Medications: Current Medications Calcium Acetate (Phoslo) 667 mg PO TID [facility] Last Admin: 08/01/17 17:52 Dose: 667 mg Clonidine HCl (Catapres) 0.3 mg PO BID [facility] Last Admin: 08/01/17 17:52 Dose: 0.3 mg Diphenhydramine HCl (Benadryl) 25 mg IVP Q6 [facility] Last Admin: 08/01/17 17:46 Dose: 25 mg Docusate Sodium (Colace) 100 mg PO BID [facility] Last Admin: 08/01/17 17:53 Dose: 100 mg Epoetin James (Procrit) 10,000 unit IV MWF [facility] Stop: 08/10/17 09:01 Last Admin: 08/01/17 14:37 Dose: 10,000 unit Gabapentin (Neurontin) 300 mg PO DAILY [facility] Last Admin: 08/01/17 11:58 Dose: Not Given Heparin Sodium (Porcine) (Heparin) 5,000 units SC Q8 [facility] Last Admin: 08/01/17 13:01 Dose: Not Given Hydromorphone HCl (Dilaudid) 2 mg IVP Q3H [facility] Last Admin: 08/01/17 17:46 Dose: 2 mg Vancomycin/Sodium Chloride (Vancomycin 1 Gm/Ns 200 Ml) 1 gm in 200 mls @ 133.333 mls/hr IVPB MWF [facility] Last Admin: 08/01/17 12:01 Dose: Not Given Piperacillin Sod/Tazobactam Sod (Zosyn 2.25 Gm Iv Premix) 2.25 gm in 50 mls @ 100 mls/hr IVPB Q8H [facility] Last Admin: 08/01/17 10:00 Dose: Not Given Insulin Aspart (Novolog) 0 unit SC ACHS [facility] PRN Reason: Protocol Last Admin: 08/01/17 17:53 Dose: Not Given Insulin Aspart (Novolog) 10 unit SC AC [facility] Last Admin: 08/01/17 11:59 Dose: 10 unit Insulin Detemir (Levemir) 24 unit SC HS [facility] Last Admin: 07/31/17 22:00 Dose: 24 unit Metoclopramide HCl (Reglan) 10 mg PO DAILY [facility] Last Admin: 08/01/17 12:01 Dose: Not Given Nifedipine (Procardia Xl) 60 mg PO BID [facility] Last Admin: 08/01/17 17:53 Dose: 60 mg Ondansetron HCl (Zofran Inj) 4 mg IVP Q8 PRN PRN Reason: Nausea/Vomiting Last Admin: 07/29/17 02:56 Dose: 4 mg Pantoprazole Sodium (Protonix Ec Tab) 40 mg PO DAILY [facility] Last Admin: 08/01/17 12:01 Dose: Not Given Vitamin B Complex/Vit C/Folic Acid (Nephro-Vamshi) 1 tab PO 0800 [facility] Last Admin: 08/01/17 08:03 Dose: 1 tab - Labs Labs: 08/01/17 14:31 08/01/17 14:31 - Constitutional Appears: Non-toxic - Head Exam Head Exam: NORMOCEPHALIC - Eye Exam Eye Exam: PERRL - ENT Exam ENT Exam: Mucous Membranes Dry - Neck Exam Neck Exam: absent: Lymphadenopathy - Respiratory Exam Respiratory Exam: Decreased Breath Sounds - Cardiovascular Exam Cardiovascular Exam: REGULAR RHYTHM - GI/Abdominal Exam GI & Abdominal Exam: Distended - Rectal Exam Rectal Exam: Deferred - Exam Exam: NORMAL INSPECTION - Extremities Exam Extremities Exam: absent: Pedal Edema - Back Exam Back Exam: absent: CVA tenderness (L), CVA tenderness (R) - Neurological Exam Neurological Exam: Alert, Awake, Oriented x3 Assessment and Plan (1) Diabetic gastroparesis Status: Acute (2) ESRD (end stage renal disease) on dialysis Status: Acute (3) Opioid dependence Status: Acute (4) Accelerated essential hypertension Status: Acute - Assessment and Plan (Free Text) Assessment: cont iv rx as out pt min 14 more days with frequent podiatry follow up
--- NOTE | 2017-08-01 20:09 | CP.PCM.PN ---
Subjective - Date & Time of Evaluation Date of Evaluation: 08/01/17 Time of Evaluation: 07:40 - Subjective Subjective: clinically same Objective - Vital Signs/Intake and Output Vital Signs (last 24 hours): Temp Pulse Resp BP Pulse Ox 97.6 F 103 H 18 148/76 100 08/01/17 17:15 08/01/17 17:15 08/01/17 17:15 08/01/17 17:15 08/01/17 17:15 - Medications Medications: Current Medications Calcium Acetate (Phoslo) 667 mg PO TID [facility] Last Admin: 08/01/17 17:52 Dose: 667 mg Clonidine HCl (Catapres) 0.3 mg PO BID [facility] Last Admin: 08/01/17 17:52 Dose: 0.3 mg Diphenhydramine HCl (Benadryl) 25 mg IVP Q6 [facility] Last Admin: 08/01/17 17:46 Dose: 25 mg Docusate Sodium (Colace) 100 mg PO BID [facility] Last Admin: 08/01/17 17:53 Dose: 100 mg Epoetin James (Procrit) 10,000 unit IV [facility] Stop: 08/10/17 09:01 Last Admin: 08/01/17 14:37 Dose: 10,000 unit Gabapentin (Neurontin) 300 mg PO DAILY [facility] Last Admin: 08/01/17 11:58 Dose: Not Given Heparin Sodium (Porcine) (Heparin) 5,000 units SC Q8 [facility] Last Admin: 08/01/17 13:01 Dose: Not Given Hydromorphone HCl (Dilaudid) 2 mg IVP Q3H [facility] Last Admin: 08/01/17 17:46 Dose: 2 mg Vancomycin/Sodium Chloride (Vancomycin 1 Gm/Ns 200 Ml) 1 gm in 200 mls @ 133.333 mls/hr IVPB MWF [facility] Last Admin: 08/01/17 12:01 Dose: Not Given Piperacillin Sod/Tazobactam Sod (Zosyn 2.25 Gm Iv Premix) 2.25 gm in 50 mls @ 100 mls/hr IVPB Q8H [facility] Last Admin: 08/01/17 10:00 Dose: Not Given Insulin Aspart (Novolog) 0 unit SC ACHS [facility] PRN Reason: Protocol Last Admin: 08/01/17 17:53 Dose: Not Given Insulin Aspart (Novolog) 10 unit SC AC [facility] Last Admin: 08/01/17 11:59 Dose: 10 unit Insulin Detemir (Levemir) 24 unit SC HS [facility] Last Admin: 07/31/17 22:00 Dose: 24 unit Metoclopramide HCl (Reglan) 10 mg PO DAILY [facility] Last Admin: 08/01/17 12:01 Dose: Not Given Nifedipine (Procardia Xl) 60 mg PO BID [facility] Last Admin: 08/01/17 17:53 Dose: 60 mg Ondansetron HCl (Zofran Inj) 4 mg IVP Q8 PRN PRN Reason: Nausea/Vomiting Last Admin: 07/29/17 02:56 Dose: 4 mg Pantoprazole Sodium (Protonix Ec Tab) 40 mg PO DAILY [facility] Last Admin: 08/01/17 12:01 Dose: Not Given Vitamin B Complex/Vit C/Folic Acid (Nephro-Vamshi) 1 tab PO 0800 [facility] Last Admin: 08/01/17 08:03 Dose: 1 tab - Labs Labs: 08/01/17 14:31 08/01/17 14:31 - Constitutional Appears: Well - Head Exam Head Exam: ATRAUMATIC, NORMAL INSPECTION, NORMOCEPHALIC - Eye Exam Eye Exam: EOMI, Normal appearance, PERRL Pupil Exam: NORMAL ACCOMODATION, PERRL - ENT Exam ENT Exam: Mucous Membranes Moist, Normal Exam - Neck Exam Neck Exam: Full ROM, Normal Inspection. absent: Lymphadenopathy - Respiratory Exam Respiratory Exam: Decreased Breath Sounds - Cardiovascular Exam Cardiovascular Exam: REGULAR RHYTHM, +S1, +S2 - GI/Abdominal Exam GI & Abdominal Exam: Soft, Diminished Bowel Sounds - Rectal Exam Rectal Exam: Deferred
[2017-08-01] MEDS ORDERED: Insulin Detemir 100 units/ml Vial (Levemir) SC SCH (22:00)
[2017-08-02] MEDS ORDERED: DiphenhydrAMINE 50 mg/ml Inj IVP STA (01:08)
[2017-08-02] MEDS: Piperacill/Tazo 2.25gm in Dex 2.25 GM/50 ML BAG IVPB SCH ×4 (01:15→19:37)
--- NOTE | 2017-08-02 01:19 | PN ---
ENDOCRINOLOGY FOLLOWUP NOTE LOCATION: Room 360. SUBJECTIVE: This is a 31-year-old female with recent uncontrolled type 1 insulin-dependent diabetes with extremes of glycemic fluctuations related to variability of her oral intake and is also undergoing IV antibiotic management for a recent left foot infection and abscess formation as noted thereof. Her glycemic levels are fluctuating today and have ranged from 105 to 201 mg/dL. It was 439 pre-breakfast this morning because the nursing staff obviously held her basal insulin last night with normal blood sugar levels of 101 mg/dL. Her latest chemistry shows a BUN of 58, sodium 134, potassium 5.2, chloride 96, CO2 of 24, glucose 91, and creatinine 9.7. So, at this time, we will modify her current basal and bolus insulin regimen and lower the Levemir to 18 units subQ at bedtime daily to start tonight. We will also continue the low-dose correction scale using NovoLog insulin to prevent and obviate hypoglycemia as noted thereof. We will also modify her prandial insulin and lower the NovoLog to 8 units subQ t.i.d. before meals, to start tomorrow morning as ordered. We will obtain serial chemistries and supplement accordingly as needed. We will follow. Beatriz Basurto MD
[2017-08-02] MEDS ORDERED: (Novolog) Insulin Aspart, Recombinant 100 u/ml 10 ml vial SC ONE (02:17)
[2017-08-02] MEDS: DiphenhydrAMINE 50 mg/ml Inj IVP SCH ×3 (05:36→18:08)
[2017-08-02] MEDS: (Novolog) Insulin Aspart, Recombinant 100 u/ml 10 ml vial SC SCH ×7 (08:01→21:23)
[2017-08-02 08:45] LABS: BASO # 0.1 K/uL (0.0-0.2); BASO % 0.9 % (0.0-2.0); EOS # 0.6 K/uL (0.0-0.7); EOS % 9.6 % (0.0-4.0); HEMATOCRIT 25.5 % (34.0-47.0); LYMPH # 1.3 K/uL (1.0-4.3); LYMPH % 20.6 % (20.0-40.0); MEAN CELL VOLUME 97.7 fL (81.0-99.0); MEAN CORPUSCULAR HEMOGLOBIN 32.8 pg (27.0-31.0); MEAN CORPUSCULAR HGB CONC 33.6 g/dL (33.0-37.0); MEAN PLATELET VOLUME 8.4 fL (7.2-11.7); MONO # 0.7 K/uL (0.0-0.8); MONO % 10.8 % (0.0-10.0); NRBC % 0.1 % (0.0-2.0); WHITE BLOOD COUNT 6.4 K/uL (4.8-10.8)
[2017-08-02] MEDS: Multivitamin Vitamin B Complex (Nephro-Vite) Tab PO SCH (09:00)
[2017-08-02] MEDS: Pantoprazole 40 mg EC Tab PO SCH (09:16)
--- NOTE | 2017-08-02 09:19 | RAD ---
HISTORY: COMPARISON: 04/03/2017 TECHNIQUE: Chest PA and lateral FINDINGS: LINES AND TUBES: None. LUNG AND PLEURA: The lungs are well inflated. There is mild pulmonary venous congestion. No focal consolidation. HEART AND MEDIASTINUM: Again seen is severe cardiomegaly. The hilar and mediastinal contours are within normal limits. SKELETAL STRUCTURES: The bony structures are within normal limits for the patient's age. A metallic wire overlies the right scapula and upper ribs. VISUALIZED UPPER ABDOMEN: Normal. OTHER FINDINGS: An IVC filter remains in place IMPRESSION: Severe cardiomegaly and mild pulmonary venous congestion. No focal consolidation.
[2017-08-02 09:20] LABS: ALB/GLOB RATIO 1.2 (1.0-2.1); BILIRUBIN,TOTAL 0.5 mg/dL (0.2-1.3); CALCIUM 7.5 mg/dl (8.6-10.4); POTASSIUM 4.7 mmol/L (3.6-5.2); TOTAL PROTEIN 6.6 g/dL (6.3-8.3)
[2017-08-02] MEDS: NIFEdipine 60 mg ER Tab PO SCH ×2 (09:56→17:27)
--- NOTE | 2017-08-02 10:22 | CP.PCM.PN ---
Subjective - Date & Time of Evaluation Date of Evaluation: 08/02/17 Time of Evaluation: 10:19 - Subjective Subjective: Podiatry Progress Note for Dr. Tilley 31 year old female was seen at bedside for toe discoloration and 2 weeks s/p b/ l 3rd digit total nail avulsion and left great toe partial nail avulsion. Patient is seen resting comfortably in bed. States that she still has pain in her foot but it has gotten better. She denies any n/v/f/c/sob/cp. Objective - Vital Signs/Intake and Output Vital Signs (last 24 hours): Temp Pulse Resp BP Pulse Ox 98.2 F 86 20 145/82 96 08/02/17 08:23 08/02/17 08:23 08/02/17 08:23 08/02/17 08:23 08/02/17 08:23 Intake and Output: 08/02/17 08/02/17 06:59 18:59 Intake Total 700 410 Balance 700 410 - Medications Medications: Current Medications Calcium Acetate (Phoslo) 667 mg PO TID [facility] Last Admin: 08/02/17 09:17 Dose: 667 mg Clonidine HCl (Catapres) 0.3 mg PO BID [facility] Last Admin: 08/02/17 09:17 Dose: 0.3 mg Diphenhydramine HCl (Benadryl) 25 mg IVP Q6 [facility] Last Admin: 08/02/17 05:36 Dose: 25 mg Docusate Sodium (Colace) 100 mg PO BID [facility] Last Admin: 08/02/17 09:17 Dose: 100 mg Epoetin James (Procrit) 10,000 unit IV MWF [facility] Stop: 08/10/17 09:01 Last Admin: 08/01/17 14:37 Dose: 10,000 unit Gabapentin (Neurontin) 300 mg PO DAILY [facility] Last Admin: 08/02/17 09:17 Dose: 300 mg Heparin Sodium (Porcine) (Heparin) 5,000 units SC Q8 [facility] Last Admin: 08/02/17 05:38 Dose: 5,000 units Hydromorphone HCl (Dilaudid) 2 mg IVP Q3H [facility] Last Admin: 08/02/17 08:40 Dose: 2 mg Vancomycin/Sodium Chloride (Vancomycin 1 Gm/Ns 200 Ml) 1 gm in 200 mls @ 133.333 mls/hr IVPB MWF [facility] Last Admin: 08/01/17 21:54 Dose: 133.333 mls/hr Piperacillin Sod/Tazobactam Sod (Zosyn 2.25 Gm Iv Premix) 2.25 gm in 50 mls @ 100 mls/hr IVPB Q8H [facility] Last Admin: 08/02/17 10:02 Dose: 100 mls/hr Insulin Aspart (Novolog) 0 unit SC ACHS [facility] PRN Reason: Protocol Last Admin: 08/02/17 08:01 Dose: Not Given Insulin Aspart (Novolog) 8 unit SC AC [facility] Last Admin: 08/02/17 08:30 Dose: 8 unit Insulin Detemir (Levemir) 18 unit SC HS [facility] Last Admin: 08/01/17 22:04 Dose: 18 unit Metoclopramide HCl (Reglan) 10 mg PO DAILY [facility] Last Admin: 08/02/17 09:56 Dose: 10 mg Nifedipine (Procardia Xl) 60 mg PO BID [facility] Last Admin: 08/02/17 09:56 Dose: 60 mg Ondansetron HCl (Zofran Inj) 4 mg IVP Q8 PRN PRN Reason: Nausea/Vomiting Last Admin: 07/29/17 02:56 Dose: 4 mg Pantoprazole Sodium (Protonix Ec Tab) 40 mg PO DAILY [facility] Last Admin: 08/02/17 09:16 Dose: 40 mg Vitamin B Complex/Vit C/Folic Acid (Nephro-Vamshi) 1 tab PO 0800 [facility] Last Admin: 08/02/17 09:00 Dose: 1 tab - Labs Labs: 08/02/17 08:33 08/02/17 08:33 - Constitutional Appears: Well, Non-toxic, No Acute Distress - Extremities Exam Additional comments: lower extremity focused exam: Vasc: DP and PT pulses palpable 2/4 bilaterally, CFT < 3 seconds x 10 digits, temperature gradient WNL, same mild localized non-pitting edema noted to the 3rd digits bilaterally Ortho: tenderness noted to the left 3rd digit, less tenderness noted to the right 3rd digit and left hallux. Neuro: gross sensation intact, protective sensation diminished Derm: dark discoloration noted to the 3rd digits b/l, all 3 surgical sites: no erythema, no streaking, no odor, no fluctance, no increase warmth, skin coapted with sutures intact, open wound measuring approximately 0.2 cm by 0.2 cm x 0.1 cm noted to the lateral incision site of the left 3rd digit with hyperkeratotic border, scant amount of drainage noted to the left 3rd digit lateral aspect, no malodor noted - Neurological Exam Neurological Exam: Alert, Awake, Oriented x3 - Psychiatric Exam Psychiatric exam: Normal Affect, Normal Mood Assessment and Plan - Assessment and Plan (Free Text) Assessment: 31 year old female 2 week s/p b/l 3rd digit total nail avulsion and left great toe partial nail avulsion Plan: Patient examined and evaluated with attending, Dr. Tilley Charts, labs, vitals reviewed -afebrile Continue IV abx per ID Surgical incisions cleansed with peroxide and dressed with DSD Surgical site to be cleasned with peroxide and dressed with 4x4 and cling Q8H remaining sutures removed from incision site Podiatry will continue to follow patient in house Will f/u with Dr. Tilley as outpatient
--- NOTE | 2017-08-02 13:10 | CP.PCM.PN ---
Subjective - Date & Time of Evaluation Date of Evaluation: 08/02/17 Time of Evaluation: 13:08 - Subjective Subjective: Progress Note for Dr. Sexton's Service Pt seen and examined at bedside. She states that her pain is well controlled right now. She expresses some c/o rib pain. I discussed the results of the CXR with her, explained that no fx was seen. She is at ease about the rib pain. States that she will be ready for d/c tomorrow. Store Product Demonstrator was in the room this morning and changed the dressing for her. Store Product Demonstrator has notified patient that she will be fine to receive outpatient abx. She denies any acute events overnight last night. Denies F/C/N/V/D/C/CP/SOB. Objective - Vital Signs/Intake and Output Vital Signs (last 24 hours): Temp Pulse Resp BP Pulse Ox 98.2 F 86 20 145/82 96 08/02/17 08:23 08/02/17 08:23 08/02/17 08:23 08/02/17 08:23 08/02/17 08:23 Intake and Output: 08/02/17 08/02/17 06:59 18:59 Intake Total 700 410 Balance 700 410 - Medications Medications: Current Medications Calcium Acetate (Phoslo) 667 mg PO TID [facility] Last Admin: 08/02/17 09:17 Dose: 667 mg Clonidine HCl (Catapres) 0.3 mg PO BID [facility] Last Admin: 08/02/17 09:17 Dose: 0.3 mg Diphenhydramine HCl (Benadryl) 25 mg IVP Q6 [facility] Last Admin: 08/02/17 12:00 Dose: 25 mg Docusate Sodium (Colace) 100 mg PO BID [facility] Last Admin: 08/02/17 09:17 Dose: 100 mg Epoetin James (Procrit) 10,000 unit IV MWF [facility] Stop: 08/10/17 09:01 Last Admin: 08/01/17 14:37 Dose: 10,000 unit Gabapentin (Neurontin) 300 mg PO DAILY [facility] Last Admin: 08/02/17 09:17 Dose: 300 mg Heparin Sodium (Porcine) (Heparin) 5,000 units SC Q8 [facility] Last Admin: 08/02/17 05:38 Dose: 5,000 units Vancomycin/Sodium Chloride (Vancomycin 1 Gm/Ns 200 Ml) 1 gm in 200 mls @ 133.333 mls/hr IVPB MWF [facility] Last Admin: 08/01/17 21:54 Dose: 133.333 mls/hr Piperacillin Sod/Tazobactam Sod (Zosyn 2.25 Gm Iv Premix) 2.25 gm in 50 mls @ 100 mls/hr IVPB Q8H [facility] Last Admin: 08/02/17 10:02 Dose: 100 mls/hr Insulin Aspart (Novolog) 0 unit SC ACHS [facility] PRN Reason: Protocol Last Admin: 08/02/17 12:16 Dose: Not Given Insulin Aspart (Novolog) 8 unit SC AC [facility] Last Admin: 08/02/17 12:16 Dose: Not Given Insulin Detemir (Levemir) 18 unit SC HS [facility] Last Admin: 08/01/17 22:04 Dose: 18 unit Metoclopramide HCl (Reglan) 10 mg PO DAILY [facility] Last Admin: 08/02/17 09:56 Dose: 10 mg Nifedipine (Procardia Xl) 60 mg PO BID [facility] Last Admin: 08/02/17 09:56 Dose: 60 mg Ondansetron HCl (Zofran Inj) 4 mg IVP Q8 PRN PRN Reason: Nausea/Vomiting Last Admin: 07/29/17 02:56 Dose: 4 mg Pantoprazole Sodium (Protonix Ec Tab) 40 mg PO DAILY [facility] Last Admin: 08/02/17 09:16 Dose: 40 mg Vitamin B Complex/Vit C/Folic Acid (Nephro-Main) 1 tab PO 0800 [facility] Last Admin: 08/02/17 09:00 Dose: 1 tab - Labs Labs: 08/02/17 08:33 08/02/17 08:33 - Constitutional Appears: No Acute Distress - Head Exam Head Exam: ATRAUMATIC, NORMOCEPHALIC - Eye Exam Eye Exam: EOMI, Normal appearance - ENT Exam ENT Exam: Mucous Membranes Moist - Respiratory Exam Respiratory Exam: Clear to Ausculation Bilateral, NORMAL BREATHING PATTERN. absent: Rales, Rhonchi, Wheezes - Cardiovascular Exam Cardiovascular Exam: REGULAR RHYTHM, +S1, +S2 - Extremities Exam Extremities Exam: absent: Calf Tenderness, Pedal Edema - Neurological Exam Neurological Exam: Alert, Awake, Oriented x3 - Psychiatric Exam Psychiatric exam: Normal Affect, Normal Mood - Skin Skin Exam: Dry, Intact Assessment and Plan - Assessment and Plan (Free Text) Plan: Sickle Cell Crisis benadryl 25mg IV q6hrs Fentanyl patch 1 patch q72hrs dilaudid 2mg IV q3hrs PICC line ordered 07/30 Status Post Nail Avulsion with possible infectious complications Podiatry on board; will continue to follow Dr. Pinto on board- recommendations appreciated Zosyn 2.25g q8hrs Vancomycin [address] Phillips is seeing the patient Received emergent HD on admission HD on / Will follow up recommendations nephro-main 1 tablet PO daily Procrit Creatinine 8.2 (07/27) Nausea Reglan 10mg PO daily zofran 4mg IV q8hrs DM ISS Levemir 12units SC q12hrs neurontin 300mg PO BID Poorly controlled sugars Continue POC monitoring Consult placed to Dr. Basurto 07/30 Hepatitis Diagnosed on previous admission AST/ALT 20/31 (07/27/17) HTN Clonidine 0.3mg PO BID Nifedipine 60mg PO BID Prophylaxis heparin 5k SC q8hrs Protonix 40mg PO daily Col[facility] Plan for discharge tomorrow. Patient will need to continue with IV abx that will be administered after her dialysis as an outpatient. D/c home tomorrow. Case discussed with Dr. Sexton All management as per Dr. Sexton
--- NOTE | 2017-08-02 15:46 | PN ---
ENDOCRINOLOGY FOLLOWUP NOTE LOCATION: Room 360. SUBJECTIVE: This is a 31-year-old female with recent uncontrolled type 1 insulin-dependent diabetes, now being followed closely for metabolic management. She continued to have extremes of variable oral intake with supervening hyperglycemic accelerations as noted thereof. Her glucose levels today showed a glucose value of 99 to 231 mg/dL. It was over 500 at 1 o'clock early this morning as noted with a bedtime glucose of 337. Her latest chemistry showed a BUN of 44, sodium 131, potassium 4.7, chloride 92, CO2 of 28, glucose 264 and creatinine 7.6. So at this time, we will modify once again her basal and bolus insulin regimen and increase the Novolog to 10 units subcu t.i.d. before meals to start at dinnertime today as ordered. We will continue the low-dose correction scale using Novolog insulin to obviate hypoglycemia and detailed ordered have been given. We will also modify and increase her basal insulin with Levemir increased to 20 units subcu at bedtime daily as given. We will titrate incrementally as indicated to optimize metabolic control. We will obtain serial chemistries and supplement accordingly as needed. We will follow and advise accordingly. Beatriz Basurto MD
--- NOTE | 2017-08-02 18:14 | CP.PCM.PN ---
Subjective - Date & Time of Evaluation Date of Evaluation: 08/02/17 Time of Evaluation: 09:00 - Subjective Subjective: no new cultures iv rx renewed Objective - Vital Signs/Intake and Output Vital Signs (last 24 hours): Temp Pulse Resp BP Pulse Ox 98.5 F 71 20 151/72 H 100 08/02/17 15:00 08/02/17 15:00 08/02/17 15:00 08/02/17 15:00 08/02/17 15:00 Intake and Output: 08/02/17 08/02/17 06:59 18:59 Intake Total 700 820 Balance 700 820 - Medications Medications: Current Medications Calcium Acetate (Phoslo) 667 mg PO TID [facility] Last Admin: 08/02/17 17:27 Dose: 667 mg Clonidine HCl (Catapres) 0.3 mg PO BID [facility] Last Admin: 08/02/17 17:27 Dose: 0.3 mg Diphenhydramine HCl (Benadryl) 25 mg IVP Q6 [facility] Last Admin: 08/02/17 18:08 Dose: 25 mg Docusate Sodium (Colace) 100 mg PO BID [facility] Last Admin: 08/02/17 17:27 Dose: 100 mg Epoetin James (Procrit) 10,000 unit IV MWF [facility] Stop: 08/10/17 09:01 Last Admin: 08/01/17 14:37 Dose: 10,000 unit Gabapentin (Neurontin) 300 mg PO DAILY [facility] Last Admin: 08/02/17 09:17 Dose: 300 mg Hydromorphone HCl (Dilaudid) 2 mg IVP Q3H [facility] Last Admin: 08/02/17 18:11 Dose: 2 mg Vancomycin/Sodium Chloride (Vancomycin 1 Gm/Ns 200 Ml) 1 gm in 200 mls @ 133.333 mls/hr IVPB MWF [facility] Last Admin: 08/01/17 21:54 Dose: 133.333 mls/hr Piperacillin Sod/Tazobactam Sod (Zosyn 2.25 Gm Iv Premix) 2.25 gm in 50 mls @ 100 mls/hr IVPB Q8H [facility] Last Admin: 08/02/17 10:02 Dose: 100 mls/hr Insulin Aspart (Novolog) 0 unit SC ACHS [facility] PRN Reason: Protocol Last Admin: 08/02/17 17:37 Dose: 2 unit Insulin Aspart (Novolog) 10 unit SC AC [facility] Last Admin: 08/02/17 17:38 Dose: 10 unit Insulin Detemir (Levemir) 20 unit SC [facility] Metoclopramide HCl (Reglan) 10 mg PO DAILY [facility] Last Admin: 08/02/17 09:56 Dose: 10 mg Nifedipine (Procardia Xl) 60 mg PO BID [facility] Last Admin: 08/02/17 17:27 Dose: 60 mg Ondansetron HCl (Zofran Inj) 4 mg IVP Q8 PRN PRN Reason: Nausea/Vomiting Last Admin: 07/29/17 02:56 Dose: 4 mg Pantoprazole Sodium (Protonix Ec Tab) 40 mg PO DAILY [facility] Last Admin: 08/02/17 09:16 Dose: 40 mg Vitamin B Complex/Vit C/Folic Acid (Nephro-Vamshi) 1 tab PO 0800 [facility] Last Admin: 08/02/17 09:00 Dose: 1 tab - Labs Labs: 08/02/17 08:33 08/02/17 08:33 - Constitutional Appears: Non-toxic, Chronically Ill - Head Exam Head Exam: NORMOCEPHALIC - Eye Exam Eye Exam: PERRL - ENT Exam ENT Exam: Mucous Membranes Dry - Neck Exam Neck Exam: absent: Thyromegaly - Respiratory Exam Respiratory Exam: Decreased Breath Sounds - Cardiovascular Exam Cardiovascular Exam: REGULAR RHYTHM - GI/Abdominal Exam GI & Abdominal Exam: Distended Assessment and Plan (1) Diabetic gastroparesis Status: Acute (2) ESRD (end stage renal disease) on dialysis Status: Acute (3) Opioid dependence Status: Acute (4) Accelerated essential hypertension Status: Acute
--- NOTE | 2017-08-02 20:02 | CON ---
ENDOCRINOLOGY CONSULTATION LOCATION: Room 360 HISTORY OF PRESENT ILLNESS: This is a 31-year-old female with known history of type 1 insulin-dependent diabetes, presenting here with sudden onset of intractable nausea, dyspepsia and vomiting related to known history of diabetic gastroparesis and has now been admitted for GI workup and management and is being referred now for diabetic evaluation because of persistent hyperglycemic accelerations as noted thereof. PAST MEDICAL HISTORY: As mentioned above. History of type 1 insulin-dependent diabetes, on a combination of Novolog given at 6 units t.i.d. before meals and Levemir given as 20 units every 12 hours as ordered. However, she holds her insulin regimen depending on the viability of her oral intake as noted thereof. History of diabetic gastroparesis with frequent admission for exacerbations of the same, history of chronic gastritis and a prior cholecystectomy undertaken, history of chronic pancreatitis, again with previous admissions for exacerbations of same. History of diabetic retinopathy, polyneuropathy and nephropathy with end-stage renal disease and dialysis dependent, history of coronary artery disease with previous coronary stent placement. She has noted history of hepatitis, the exact nature of which has to be clarified at this time. Also, history of hyperthyroidism and has been currently off medications at this time. History of chronic asthmatic bronchitis and currently on nebulizer therapy as noted. She also has generalized anxiety and depression, on psychotropic medications. She has chronic anemia related to underlying chronic kidney disease as mentioned as noted. History of hypertension and dyslipidemia. She has a remote history of nephrolithiasis as noted. Also, history of seizure disorder, but no recent seizure event as noted. There is also a historical data reporting obstructive sleep apnea, again she has not been using her CPAP mask at this time. FAMILY HISTORY: Positive for diabetes and hypertension. SOCIAL HISTORY: The patient has a supportive family. No known substance use. REVIEW OF SYSTEMS: As mentioned above, but admits generalized body weakness with easy fatigability and tiredness and suboptimal energy level. Also admits to episodic bouts of dizziness and lightheadedness, worse on the day of admission. No chest pains or palpitations or PNDs. Her oral intake has been variable with nausea, dyspepsia and intractable vomiting episodes. Also, admits to habitual constipation. PHYSICAL EXAMINATION: GENERAL: This is an average-built female, in no apparent distress. VITAL SIGNS: Blood pressure initially of 196/111, she had missed dialysis on the day of admission and the repeat blood pressure now is 150/90; pulse of 70 beats per minute, regular; temperature 98; respirations 20. Height is 5 feet 2 inches. Weight is 145 pounds. HEENT: Head normocephalic. Eyes anicteric with pale conjunctivae. Funduscopy not possible at this time. Ears, nose, and throat otherwise normal. NECK: Supple. Thyroid gland is normal in size. No carotid bruits or cervical adenopathy. CARDIOPULMONARY: Adynamic precordium. S1, S2 is rapid and regular. LUNGS: Clear to auscultation. ABDOMEN: Flat, soft with positive bowel sounds. EXTREMITIES: No peripheral edema. Pulses are +2 bilaterally. LABORATORY DATA: The chemistry shows a BUN of 46, sodium 130, potassium 5.0, chloride 92, CO2 of 28, glucose 356, creatinine 7.9. Her glucose levels have ranged from 212 to 246 and 270 mg/dL. It was over 500 last night as noted. ASSESSMENT: This is a 31-year-old female with uncontrolled and decompensated type 1 insulin-dependent diabetes, presenting here with flare-up of diabetic gastroparesis and is now being referred for diabetic evaluation because of persistent hyperglycemic exacerbations as noted thereof. She also has diabetic microvascular complications of adenopathy, polyneuropathy and nephropathy with end-stage renal disease, on dialysis dependence. She has no diabetic macrovascular complications of coronary artery disease with peripheral arterial disease and vasculopathy. PLAN: Plan of management as discussed with the patient and the staff. We will modify her current basal and bolus insulin regimen to make it more physiologic at this time, and we will start her on Humalog given at 6 units subcu t.i.d. before meals to start at dinnertime today as ordered. We will also modify her basal insulin and increase the Levemir to 20 units subcu every 12 hours. We will also modify the Levemir to 20 units subcu at bedtime daily to start tonight. We will modify the coverage scale hypoglycemia and detailed orders have been given. We will obtain serial chemistry and supplement accordingly as needed. We will follow and advise accordingly. Beatriz Basurto MD [facility] # [id number]
[2017-08-02] MEDS ORDERED: Insulin Detemir 100 units/ml Vial (Levemir) SC SCH (22:00)
[2017-08-03] MEDS: DiphenhydrAMINE 50 mg/ml Inj IVP PRN ×4 (00:52→19:53)
[2017-08-03] MEDS: Piperacill/Tazo 2.25gm in Dex 2.25 GM/50 ML BAG IVPB SCH ×3 (01:00→18:41)
[2017-08-03] MEDS: (Novolog) Insulin Aspart, Recombinant 100 u/ml 10 ml vial SC SCH ×5 (08:15→16:55)
[2017-08-03] MEDS: Multivitamin Vitamin B Complex (Nephro-Vite) Tab PO SCH (08:16)
[2017-08-03] MEDS: Pantoprazole 40 mg EC Tab PO SCH ×2 (08:25→10:59)
[2017-08-03] MEDS: NIFEdipine 60 mg ER Tab PO SCH ×2 (10:59→18:39)
[2017-08-03] MEDS: Vancomycin 1 gm/NS 200 ml 1 GM/200 ML BAG IVPB SCH (11:00)
--- NOTE | 2017-08-03 11:07 | CP.PCM.PN ---
Subjective - Date & Time of Evaluation Date of Evaluation: 08/03/17 Time of Evaluation: 09:00 - Subjective Subjective: Progress Note for Dr. Sexton's Service Pt seen and examined at bedside. She expresses the same complaint of rib pain. She states she knows they are not broken but was requesting pain meds for "a possible hematoma under the ribs causing pain". She denies any acute events overnight last night. Patient to to have a session of dialysis and then will be discharged today. Objective - Vital Signs/Intake and Output Vital Signs (last 24 hours): Temp Pulse Resp BP Pulse Ox 98.1 F 81 20 158/68 H 99 08/03/17 08:00 08/03/17 08:00 08/03/17 08:00 08/03/17 08:00 08/03/17 08:00 Intake and Output: 08/03/17 08/03/17 06:59 18:59 Intake Total 980 Balance 980 - Medications Medications: Current Medications Calcium Acetate (Phoslo) 667 mg PO TID [facility] Last Admin: 08/03/17 10:59 Dose: Not Given Clonidine HCl (Catapres) 0.3 mg PO BID [facility] Last Admin: 08/03/17 10:58 Dose: Not Given Diphenhydramine HCl (Benadryl) 25 mg IVP Q6H PRN PRN Reason: Itching / Pruritus Last Admin: 08/03/17 07:33 Dose: 25 mg Docusate Sodium (Colace) 100 mg PO BID [facility] Last Admin: 08/03/17 10:58 Dose: Not Given Epoetin James (Procrit) 10,000 unit IV [facility] Stop: 08/10/17 09:01 Last Admin: 08/01/17 14:37 Dose: 10,000 unit Gabapentin (Neurontin) 300 mg PO DAILY [facility] Last Admin: 08/03/17 10:58 Dose: Not Given Hydromorphone HCl (Dilaudid) 2 mg IVP Q3H PRN PRN Reason: Pain, moderate (4-7) Last Admin: 08/03/17 10:44 Dose: 2 mg Vancomycin/Sodium Chloride (Vancomycin 1 Gm/Ns 200 Ml) 1 gm in 200 mls @ 133.333 mls/hr IVPB [facility] Last Admin: 08/03/17 11:00 Dose: Not Given Piperacillin Sod/Tazobactam Sod (Zosyn 2.25 Gm Iv Premix) 2.25 gm in 50 mls @ 100 mls/hr IVPB Q8H [facility] Last Admin: 08/03/17 10:45 Dose: 100 mls/hr Insulin Aspart (Novolog) 0 unit SC ACHS [facility] PRN Reason: Protocol Last Admin: 08/03/17 08:16 Dose: 3 unit Insulin Aspart (Novolog) 10 unit SC AC [facility] Last Admin: 08/03/17 08:15 Dose: 10 unit Insulin Detemir (Levemir) 20 unit SC HS [facility] Last Admin: 08/02/17 21:42 Dose: 20 unit Metoclopramide HCl (Reglan) 10 mg PO DAILY [facility] Last Admin: 08/03/17 11:00 Dose: Not Given Nifedipine (Procardia Xl) 60 mg PO BID [facility] Last Admin: 08/03/17 10:59 Dose: Not Given Ondansetron HCl (Zofran Inj) 4 mg IVP Q8 PRN PRN Reason: Nausea/Vomiting Last Admin: 07/29/17 02:56 Dose: 4 mg Pantoprazole Sodium (Protonix Ec Tab) 40 mg PO DAILY [facility] Last Admin: 08/03/17 10:59 Dose: Not Given Vitamin B Complex/Vit C/Folic Acid (Nephro-Main) 1 tab PO 0800 [facility] Last Admin: 08/03/17 08:16 Dose: 1 tab - Labs Labs: 08/02/17 08:33 08/02/17 08:33 - Constitutional Appears: Non-toxic, No Acute Distress, Chronically Ill - Head Exam Head Exam: ATRAUMATIC, NORMAL INSPECTION - Eye Exam Eye Exam: EOMI - Respiratory Exam Respiratory Exam: Clear to Ausculation Bilateral, NORMAL BREATHING PATTERN. absent: Respiratory Distress - Cardiovascular Exam Cardiovascular Exam: REGULAR RHYTHM. absent: +S1, +S2 - GI/Abdominal Exam GI & Abdominal Exam: Soft, Normal Bowel Sounds. absent: Distended, Firm, Guarding, Tenderness - Extremities Exam Additional comments: bandages on both feet. c/d/i - Back Exam Back Exam: NORMAL INSPECTION - Neurological Exam Neurological Exam: Alert, Awake, Oriented x3 - Psychiatric Exam Psychiatric exam: Normal Affect, Normal Mood Assessment and Plan - Assessment and Plan (Free Text) Assessment: Sickle Cell Crisis benadryl 25mg IV q6hrs Fentanyl patch 1 patch q72hrs dilaudid 2mg IV q3hrs PICC line ordered 07/30 Status Post Nail Avulsion with possible infectious complications Podiatry on board; will continue to follow Dr. Pinto on board- recommendations appreciated Zosyn 2.25g q8hrs Vancomycin 1g daily ESRD Dr. Phillips is seeing the patient Received emergent HD on admission HD on // Will follow up recommendations nephro-main 1 tablet PO daily Procrit Creatinine 8.2 (07/27) Nausea Reglan 10mg PO daily zofran 4mg IV q8hrs DM ISS Levemir 12units SC q12hrs neurontin 300mg PO BID Poorly controlled sugars Continue POC monitoring Consult placed to Dr. Basurto 07/30 Hepatitis Diagnosed on previous admission AST/ALT (07/27/17) HTN Clonidine 0.3mg PO BID Nifedipine 60mg PO BID Prophylaxis heparin 5k SC q8hrs Protonix 40mg PO daily Colace To be discharged today. Patient will need to continue with IV abx that will be administered after her dialysis as an outpatient. Case discussed with Dr. Sexton All management as per Dr. Sexton
--- NOTE | 2017-08-03 12:44 | CP.PCM.PN ---
Subjective - Date & Time of Evaluation Date of Evaluation: 08/03/17 Time of Evaluation: 12:44 - Subjective Subjective: Podiatry Progress Note for Dr. Tilley 31 year old female was seen at bedside for toe discoloration and 2 weeks s/p b/ l 3rd digit total nail avulsion and left great toe partial nail avulsion. Patient is seen resting comfortably in bed. She admits to some throbbing of her left 3rd digit. She denies any n/v/f/c/sob/cp. Objective - Vital Signs/Intake and Output Vital Signs (last 24 hours): Temp Pulse Resp BP Pulse Ox 98.1 F 81 20 158/68 H 99 08/03/17 08:00 08/03/17 11:00 08/03/17 08:00 08/03/17 11:00 08/03/17 11:00 Intake and Output: 08/03/17 08/03/17 06:59 18:59 Intake Total 980 Balance 980 - Medications Medications: Current Medications Calcium Acetate (Phoslo) 667 mg PO TID [facility] Last Admin: 08/03/17 10:59 Dose: Not Given Clonidine HCl (Catapres) 0.3 mg PO BID [facility] Last Admin: 08/03/17 10:58 Dose: Not Given Diphenhydramine HCl (Benadryl) 25 mg IVP Q6H PRN PRN Reason: Itching / Pruritus Last Admin: 08/03/17 07:33 Dose: 25 mg Docusate Sodium (Colace) 100 mg PO BID [facility] Last Admin: 08/03/17 10:58 Dose: Not Given Epoetin James (Procrit) 10,000 unit IV F [facility] Stop: 08/10/17 09:01 Last Admin: 08/01/17 14:37 Dose: 10,000 unit Gabapentin (Neurontin) 300 mg PO DAILY [facility] Last Admin: 08/03/17 10:58 Dose: Not Given Hydromorphone HCl (Dilaudid) 2 mg IVP Q3H PRN PRN Reason: Pain, moderate (4-7) Last Admin: 08/03/17 10:44 Dose: 2 mg Vancomycin/Sodium Chloride (Vancomycin 1 Gm/Ns 200 Ml) 1 gm in 200 mls @ 133.333 mls/hr IVPB MWF [facility] Last Admin: 08/03/17 11:00 Dose: Not Given Piperacillin Sod/Tazobactam Sod (Zosyn 2.25 Gm Iv Premix) 2.25 gm in 50 mls @ 100 mls/hr IVPB Q8H [facility] Last Admin: 08/03/17 10:45 Dose: 100 mls/hr Insulin Aspart (Novolog) 0 unit SC ACHS [facility] PRN Reason: Protocol Last Admin: 08/03/17 12:39 Dose: Not Given Insulin Aspart (Novolog) 10 unit SC AC [facility] Last Admin: 08/03/17 12:40 Dose: Not Given Insulin Detemir (Levemir) 20 unit SC HS [facility] Last Admin: 08/02/17 21:42 Dose: 20 unit Metoclopramide HCl (Reglan) 10 mg PO DAILY [facility] Last Admin: 08/03/17 11:00 Dose: Not Given Nifedipine (Procardia Xl) 60 mg PO BID [facility] Last Admin: 08/03/17 10:59 Dose: Not Given Ondansetron HCl (Zofran Inj) 4 mg IVP Q8 PRN PRN Reason: Nausea/Vomiting Last Admin: 07/29/17 02:56 Dose: 4 mg Pantoprazole Sodium (Protonix Ec Tab) 40 mg PO DAILY [facility] Last Admin: 08/03/17 10:59 Dose: Not Given Vitamin B Complex/Vit C/Folic Acid (Nephro-Vamshi) 1 tab PO 0800 [facility] Last Admin: 08/03/17 08:16 Dose: 1 tab - Labs Labs: 08/02/17 08:33 08/02/17 08:33 - Constitutional Appears: Well, Non-toxic, No Acute Distress - Extremities Exam Additional comments: lower extremity focused exam: Vasc: DP and PT pulses palpable 2/4 bilaterally, CFT < 3 seconds x 10 digits, temperature gradient WNL, same mild localized non-pitting edema noted to the 3rd digits bilaterally Ortho: tenderness noted to the left 3rd digit, less tenderness noted to the right 3rd digit and left hallux. Neuro: gross sensation intact, protective sensation diminished Derm: dark discoloration noted to the 3rd digits b/l, all 3 surgical sites: no erythema, no streaking, no odor, no fluctance, no increase warmth, skin coapted on the hallux surgical site, open wound measuring approximately 0.2 cm by 0.2 cm x 0.1 cm noted to the lateral incision site of the left 3rd digit with hyperkeratotic border, scant amount of drainage noted to the left 3rd digit lateral aspect, no malodor noted - Neurological Exam Neurological Exam: Alert, Awake, Oriented x3 - Psychiatric Exam Psychiatric exam: Normal Affect, Normal Mood Assessment and Plan - Assessment and Plan (Free Text) Assessment: 31 year old female 2 week s/p b/l 3rd digit total nail avulsion and left great toe partial nail avulsion Plan: Patient examined and evaluated with attending, Dr. Tilley Charts, labs, vitals reviewed -afebrile Continue IV abx per ID Surgical incisions cleansed with peroxide and dressed with DSD Surgical site to be cleansed with peroxide and dressed with 4x4 and cling Q8H, patient is aware and has help at home to perform dressing changed Podiatry will continue to follow patient in house Will f/u with Dr. Tilley as outpatient
--- NOTE | 2017-08-03 14:34 | PN ---
ENDOCRINOLOGY FOLLOWUP NOTE LOCATION: In room #360. This is a 31-year-old female with recent uncontrolled type 1 insulin-dependent diabetes, now being followed closely for metabolic management. Her glycemic levels are extremely fluctuating related to the variability of her oral intake and today's glucose levels have ranged from 177-394 mg/dL. Her glucose was 284 at bedtime last night. The latest chemistry showed a BUN of 44, sodium 131, potassium 4.7, chloride 92, CO2 of 28, glucose 264 and creatinine 7.6. So at this time, we will modify once again her basal and bolus insulin regimen and increase the NovoLog to 14 units subcu t.i.d. before meals as ordered. We will continue the low dose correction scale using NovoLog insulin as stated. We will titrate incrementally as indicated to optimize metabolic control. We will also modify her basal insulin and increase the Levemir to 26 units subcu at bedtime daily to start tonight. We will obtain serial chemistries and supplement accordingly as needed. We will follow with you. Beatriz Basurto MD
[2017-08-03] MEDS ORDERED: DiphenhydrAMINE 50 mg/ml Inj IVP STA (14:55)
[2017-08-03 16:27] LABS: BASO # 0.1 K/uL (0.0-0.2); BASO % 1.2 % (0.0-2.0); EOS # 0.7 K/uL (0.0-0.7); EOS % 10.9 % (0.0-4.0); HEMATOCRIT 29.2 % (34.0-47.0); LYMPH # 0.8 K/uL (1.0-4.3); LYMPH % 13.5 % (20.0-40.0); MEAN CELL VOLUME 96.1 fL (81.0-99.0); MEAN CORPUSCULAR HEMOGLOBIN 32.3 pg (27.0-31.0); MEAN CORPUSCULAR HGB CONC 33.6 g/dL (33.0-37.0); MEAN PLATELET VOLUME 7.7 fL (7.2-11.7); MONO # 0.5 K/uL (0.0-0.8); MONO % 7.7 % (0.0-10.0); NRBC % 0.1 % (0.0-2.0); RED CELL DISTRIBUTION WIDTH 18.1 % (11.5-14.5); WHITE BLOOD COUNT 6.2 K/uL (4.8-10.8)
[2017-08-03] MEDS ORDERED: (Novolog) Insulin Aspart, Recombinant 100 u/ml 10 ml vial SC SCH (16:30)
[2017-08-03] MEDS: Epoetin Alfa 10,000 unit/ml Dialysis IV SCH (17:12)
[2017-08-03 18:10] LABS: ALB/GLOB RATIO 1.3 (1.0-2.1); BILIRUBIN,TOTAL 0.6 mg/dL (0.2-1.3); POTASSIUM 3.6 mmol/L (3.6-5.2); TOTAL PROTEIN 7.6 g/dL (6.3-8.3)
[2017-08-03 18:17] VITALS: BP 137/84; PULSE 111; RESP 20; TEMP 98.9; O2SAT 96
--- NOTE | 2017-08-03 18:41 | CP.PCM.PN ---
Subjective - Date & Time of Evaluation Date of Evaluation: 08/03/17 Time of Evaluation: 07:00 - Subjective Subjective: 31 year old female 2 week s/p b/l 3rd digit total nail avulsion and left great toe partial nail avulsion Objective - Vital Signs/Intake and Output Vital Signs (last 24 hours): Temp Pulse Resp BP Pulse Ox 98.9 F 111 H 20 137/84 96 08/03/17 18:10 08/03/17 18:10 08/03/17 18:10 08/03/17 18:10 08/03/17 18:10 Intake and Output: 08/03/17 08/03/17 06:59 18:59 Intake Total 980 Balance 980 - Medications Medications: Current Medications Calcium Acetate (Phoslo) 667 mg PO TID [facility] Last Admin: 08/03/17 18:40 Dose: 667 mg Clonidine HCl (Catapres) 0.3 mg PO BID [facility] Last Admin: 08/03/17 18:40 Dose: 0.3 mg Diphenhydramine HCl (Benadryl) 25 mg IVP Q6H PRN PRN Reason: Itching / Pruritus Last Admin: 08/03/17 13:35 Dose: 25 mg Docusate Sodium (Colace) 100 mg PO BID [facility] Last Admin: 08/03/17 18:39 Dose: 100 mg Epoetin James (Procrit) 10,000 unit IV MWF [facility] Stop: 08/10/17 09:01 Last Admin: 08/03/17 17:12 Dose: 10,000 unit Gabapentin (Neurontin) 300 mg PO DAILY [facility] Last Admin: 08/03/17 10:58 Dose: Not Given Hydromorphone HCl (Dilaudid) 2 mg IVP Q3H PRN PRN Reason: Pain, moderate (4-7) Last Admin: 08/03/17 16:49 Dose: 2 mg Vancomycin/Sodium Chloride (Vancomycin 1 Gm/Ns 200 Ml) 1 gm in 200 mls @ 133.333 mls/hr IVPB MWF [facility] Last Admin: 08/03/17 11:00 Dose: Not Given Piperacillin Sod/Tazobactam Sod (Zosyn 2.25 Gm Iv Premix) 2.25 gm in 50 mls @ 100 mls/hr IVPB Q8H [facility] Last Admin: 08/03/17 10:45 Dose: 100 mls/hr Insulin Aspart (Novolog) 0 unit SC ACHS [facility] PRN Reason: Protocol Last Admin: 08/03/17 16:55 Dose: Not Given Insulin Aspart (Novolog) 14 unit SC AC [facility] Last Admin: 08/03/17 16:56 Dose: Not Given Insulin Detemir (Levemir) 26 unit SC HS [facility] Metoclopramide HCl (Reglan) 10 mg PO DAILY [facility] Last Admin: 08/03/17 11:00 Dose: Not Given Nifedipine (Procardia Xl) 60 mg PO BID [facility] Last Admin: 08/03/17 18:39 Dose: 60 mg Ondansetron HCl (Zofran Inj) 4 mg IVP Q8 PRN PRN Reason: Nausea/Vomiting Last Admin: 07/29/17 02:56 Dose: 4 mg Pantoprazole Sodium (Protonix Ec Tab) 40 mg PO DAILY [facility] Last Admin: 08/03/17 10:59 Dose: Not Given Vitamin B Complex/Vit C/Folic Acid (Nephro-Vamshi) 1 tab PO 0800 [facility] Last Admin: 08/03/17 08:16 Dose: 1 tab - Labs Labs: 08/03/17 16:24 08/03/17 17:48 - Constitutional Appears: Non-toxic, Chronically Ill - Head Exam Head Exam: NORMOCEPHALIC - Eye Exam Eye Exam: PERRL - ENT Exam ENT Exam: Mucous Membranes Dry - Neck Exam Neck Exam: absent: Lymphadenopathy - Respiratory Exam Respiratory Exam: Prolonged Expiratory Phase Assessment and Plan (1) Diabetic gastroparesis Status: Acute (2) ESRD (end stage renal disease) on dialysis Status: Acute (3) Opioid dependence Status: Acute (4) Accelerated essential hypertension Status: Acute
[2017-08-03] MEDS ORDERED: Insulin Detemir 100 units/ml Vial (Levemir) SC SCH (22:00)
== END 2017-08-03 20:31 | disposition home or self-care (01) | DRG 533 ==
LOC: C.ER 13:06 → C.9E 13:55 → C.3T 17:10 → OBSVTOIN 07-30 17:09
PROVIDERS: ADMIT Internal Medicine Nephrology; ATTEND Internal Medicine Nephrology
DX: E10.43 Type 1 diabetes mellitus with diabetic autonomic (poly)neuropathy (principal); D57.00 Hb-SS disease with crisis, unspecified; I13.2 Hypertensive heart and chronic kidney disease with heart failure and with stage 5 chronic kidney disease, or end stage renal disease; E10.22 Type 1 diabetes mellitus with diabetic chronic kidney disease; I12.0 Hypertensive chronic kidney disease with stage 5 chronic kidney disease or end stage renal disease; F11.20 Opioid dependence, uncomplicated; E10.65 Type 1 diabetes mellitus with hyperglycemia; N18.6 End stage renal disease; I50.9 Heart failure, unspecified; K31.84 Gastroparesis; E11.628 Type 2 diabetes mellitus with other skin complications; E11.43 Type 2 diabetes mellitus with diabetic autonomic (poly)neuropathy; E78.00 Pure hypercholesterolemia, unspecified; D63.1 Anemia in chronic kidney disease; Z99.2 Dependence on renal dialysis; Z79.4 Long term (current) use of insulin; L03.032 Cellulitis of left toe

== ENCOUNTER 2017-08-06 16:57 | Inpatient (IN) | payer MEDICAID ==
[2017-08-06 16:57] VITALS: BMI 25.6
[2017-08-06] MEDS ORDERED: Sodium Chloride 0.9% 1,000 ML IV STA (17:15)
[2017-08-06] MEDS ORDERED: DiphenhydrAMINE 50 mg/ml Inj IVP STA ×2 (17:15→19:58)
--- NOTE | 2017-08-06 17:18 | C.PDOC ---
History Of Present Illness 31 y/o F c PMHx ESRD on HD (last HD yesterday, went normally), Diabetic gastroparesis p/w abdominal pain x 3 days. Pain is diffuse, severe, constant, same as previous gastroparesis, associated with NB vomiting. Denies body pains, fever, dysuria. Time Seen by Provider: 08/06/17 17:09 Chief Complaint (Nursing): Abdominal Pain Past Medical History Vital Signs: Last Vital Signs Temp Pulse 116 H 08/06/17 18:51 Resp 20 08/06/17 18:51 BP 205/138 H 08/06/17 18:51 Pulse Ox 100 08/06/17 18:51 - Medical History PMH: Anemia, Anxiety, Asthma, Bronchitis, CHF, Diabetes, Fractures (Sep 2012 L foot), Gastritis, Gastrointestinal Ulcer (gastroparesis), Gall Bladder Disease ( gallbladder removed), Hepatitis, HTN, Hypercholesterolemia, Hyperthyroidism, Hypothyroidism, Kidney Stones, Pancreatitis (chronic), Peripheral Edema, Pneumonia, End Stage Renal Disease, Chronic Kidney Disease, Seizures, Sleep Apnea, Chronic Pain Surgical History: Cholecystectomy, Coronary Stent - [facility] (07/12/17) ASSISTANCE WITH RESPIRATORY VENTILATION, 24-96 HRS, CPAP (11/27/16) CAUTERY TO STOP EPISTAX (03/22/14) CENTRAL VENOUS CATHETER PLACEMENT WITH GUIDANCE (11/06/14) DIALYSIS ARTERIOVENOSTOM (01/10/14) DRAINAGE OF RIGHT FOOT SKIN, EXTERNAL APPROACH (07/17/16) DRAINAGE OF RIGHT LOWER ARM SKIN, EXTERNAL APPROACH (05/25/16) ESOPHAGOGASTRODUODENOSCOPY [EGD] W/CLOSED BIOPSY (03/03/14) EXCISION OF LEFT TOE PHALANX, OPEN APPROACH (07/12/17) EXCISION OF STOMACH, ENDO, DIAGN (05/09/16) EXTIRPATE MATTER FROM R LOW ARM SUBCU/FASCIA, PERC (05/25/16) EXTRACTION OF RIGHT FOOT SKIN, EXTERNAL APPROACH (05/25/16) EXTRACTION OF TOE NAIL, EXTERNAL APPROACH (07/12/17) FLEXIBLE SIGMOIDOSCOPY (10/26/14) FLUOROSCOPY OF R JUGULAR VEIN USING L OSM CONTRAST, GUIDANCE (12/13/15) FLUOROSCOPY OF RIGHT SUBCLAVIAN VEIN, GUIDANCE (08/07/16) HEMODIALYSIS (04/05/15) INJECT INSULIN (05/13/13) INJECT/INFUSE ELECTROLYT (12/23/12) INJECT/INFUSE NEC (01/17/15) INSERT INFUSION DEV IN R INT JUGULAR VEIN, PERC (02/23/16) INSERTION OF INFUSION DEV INTO R BASILIC VEIN, PERC APPROACH (04/18/16) INSERTION OF INFUSION DEV INTO R BRACH VEIN, PERC APPROACH (02/19/17) INSERTION OF INFUSION DEV INTO R SUBCLAV VEIN, PERC APPROACH (08/29/16) INSERTION OF INFUSION DEV INTO SUP VENA CAVA, PERC APPROACH (05/25/16) INSERTION OF INFUSION DEVICE INTO R ATRIUM, PERC APPROACH (12/13/15) INSERTION OF VAD INTO CHEST SUBCU/FASCIA, OPEN APPROACH (12/13/15) MEASURE OF CARDIAC SAMPL & PRESSURE, L HEART, PERC APPROACH (10/09/16) OTHER ENDOSCOPY OF SM INTEST (08/25/14) PACKED CELL TRANSFUSION (10/26/14) PERFORMANCE OF URINARY FILTRATION, MULTIPLE (03/19/17) PERFORMANCE OF URINARY FILTRATION, SINGLE (11/27/16) PLAIN RADIOGRAPHY OF LEFT HEART USING OTHER CONTRAST (10/09/16) PLAIN RADIOGRAPHY OF MULT COR ART USING OTH CONTRAST (10/09/16) PLICATION OF VENA CAVA (03/22/14) POST NASAL PAC FOR EPIST (03/22/14) REMOVAL OF VAD FROM TRUNK SUBCU/FASCIA, OPEN APPROACH (02/23/16) [facility]IN [facility] DIALYS[facility] SHUNT (03/03/14) THERAPEUTIC ERYTHROCYTAPHERESIS (10/26/14) TRANSFUSE NONAUT RED BLOOD CELLS IN PERIPH VEIN, PERC (02/19/17) ULTRASONOGRAPHY OF RIGHT AND LEFT HEART, TRANSESOPHAGEAL (02/19/17) ULTRASONOGRAPHY OF RIGHT SUBCLAVIAN VEIN, GUIDANCE (08/29/16) ULTRASONOGRAPHY OF RIGHT UPPER EXTREMITY VEINS, GUIDANCE (02/19/17) VACCINATION NEC (10/26/14) VENOUS CATHETERIZATION FOR RENAL DIALYSIS (03/03/14) Family History: States: No Known Family Hx - Social History Hx Tobacco Use: No Hx Alcohol Use: No Hx Substance Use: No - Immunization History Hx Tetanus Toxoid Vaccination: No Hx Influenza Vaccination: Yes (05/2017) Hx Pneumococcal Vaccination: Yes (2015) Review Of Systems Except As Marked, All Systems Reviewed And Found Negative. Constitutional: Negative for: Fever Cardiovascular: Negative for: Chest Pain Physical Exam - Physical Exam Additional Physical Exam Comments: Gen: Appears in distress secondary to pain, crouching at bedside, bouncing up and down. Head: Normocephalic, atraumatic. Eyes: PERRL. ENT: Moist mucous membranes. Neck: Supple. Chest: No tenderness. CV: Regular rate. Radial pulses 2+ bilaterally. Resp: Clear to auscultation bilaterally. Abd: Soft, nontender, nondistended. Extremities: No swelling or tenderness. Skin: No rash. Neuro: Alert, no focal deficit. ED Course And Treatment - Laboratory Results Result Diagrams: 08/06/17 19:59 08/06/17 19:59 Central Line Placement - Central Line Placement Indication: Unable To Obtain Adequate Peripheral Access Central Line Placement: Left: Femoral The Area Was Thoroughly Prepared With: Chlorhexidine, Draped Using Sterile Technique Area Was Locally Anesthetized With: Lidocaine 1% Procedure: Triple Lumen, Placed Using Standard Seldinger Technique, Catheter Was Sewn Into Place, Sterile Dressing Placed Over Line, Procedure Tolerated Well Medical Decision Making Medical Decision Making: Dilaudid, benadryl, IVF, Zofran administered for symptomatic relief. Check labs , urine, EKG, CXR. Will likely require observation stay for pain control. Patient continues to have pain, intractible. Will keep for observation for intractible pain. Disposition - Disposition Disposition: HOSPITALIZED Disposition Time: 21:00 Condition: FAIR Forms: [facility] (Ethiopian) - Clinical Impression Clinical Impression: Intractable pain
[2017-08-06] MEDS ORDERED: DiphenhydrAMINE 50 mg/ml Inj ONE ×2 (17:27→20:07)
[2017-08-06] MEDS ORDERED: DiphenhydrAMINE 50 mg/ml Inj IM ONE (17:30)
[2017-08-06 20:05] LABS: BASO # 0.1 K/uL (0.0-0.2); BASO % 1.4 % (0.0-2.0); EOS # 0.2 K/uL (0.0-0.7); EOS % 2.9 % (0.0-4.0); HEMATOCRIT 29.3 % (34.0-47.0); LYMPH # 0.7 K/uL (1.0-4.3); LYMPH % 9.8 % (20.0-40.0); MEAN CORPUSCULAR HEMOGLOBIN 31.2 pg (27.0-31.0); MEAN CORPUSCULAR HGB CONC 32.5 g/dL (33.0-37.0); MEAN PLATELET VOLUME 7.4 fL (7.2-11.7); MONO # 0.4 K/uL (0.0-0.8); MONO % 5.3 % (0.0-10.0); NRBC % 0.1 % (0.0-2.0); PLATELET COUNT 354 K/uL (130-400); RED CELL DISTRIBUTION WIDTH 18.3 % (11.5-14.5); WHITE BLOOD COUNT 7.1 K/uL (4.8-10.8)
[2017-08-06] MEDS ORDERED: Sodium Chloride 0.9% 1,000 ML ONE (20:06)
[2017-08-06 20:22] LABS: ALB/GLOB RATIO 1.1 (1.0-2.1); BILIRUBIN,TOTAL 0.7 mg/dL (0.2-1.3); CALCIUM 7.7 mg/dl (8.6-10.4); POTASSIUM 4.2 mmol/L (3.6-5.2); TOTAL PROTEIN 7.6 g/dL (6.3-8.3)
[2017-08-06 20:37] LABS: BASOPHIL 1 % (0-2); EOSINOPHIL 1 % (0-4); NEUTROPHIL 86 % (50-75); TOTAL CELLS COUNTED 100
[2017-08-07] MEDS: DiphenhydrAMINE 50 mg/ml Inj IVP PRN ×5 (01:30→19:57)
--- NOTE | 2017-08-07 07:38 | RAD ---
HISTORY: abd pain COMPARISON: No prior. FINDINGS: LUNGS: No active pulmonary disease. PLEURA: No significant pleural effusion identified, no pneumothorax apparent. CARDIOVASCULAR: Cardiomegaly is again evident. No definite pulmonary vascular derangement however. OSSEOUS STRUCTURES: No significant abnormalities. VISUALIZED UPPER ABDOMEN: Normal. OTHER FINDINGS: None. IMPRESSION: Stable cardiomegaly. No pulmonary vascular derangement appreciated. No infiltrates pleural effusions bilaterally.
[2017-08-07] MEDS: Epoetin Alfa 10,000 unit/ml Dialysis IV SCH ×3 (09:00→17:31)
[2017-08-07 09:25] LABS: FOLATE > 20.0 ng/mL
--- NOTE | 2017-08-07 09:56 | CP.PCM.PN ---
Subjective - Date & Time of Evaluation Date of Evaluation: 08/07/17 Time of Evaluation: 09:52 - Subjective Subjective: Progress Note for Dr. Sexton's Service Pt seen and examined at bedside. She left for [facility] and returned to the hospital for readmission. She is complaining of abdominal pain particularly and diffuse pain as well. She is demanding opioids. She also states that she has "coffee ground emesis." I discussed these claims with nursing and the patient has not vomited. She has been hypertensive and medications were ordered for her by BANDAR Raza but she has refused to take these medications and only wants her dilauded. Patient is to have a session of dialysis today. Objective - Vital Signs/Intake and Output Vital Signs (last 24 hours): Temp Pulse Resp BP Pulse Ox 97.0 F L 92 H 18 171/147 H 93 L 08/07/17 07:15 08/07/17 07:15 08/07/17 07:15 08/07/17 07:15 08/07/17 07:15 Intake and Output: 08/07/17 08/07/17 06:59 18:59 Intake Total 240 Balance 240 - Medications Medications: Current Medications Clonidine HCl (Catapres) 0.3 mg PO BID [facility] Last Admin: 08/07/17 09:44 Dose: Not Given Diphenhydramine HCl (Benadryl) 25 mg IVP Q4 PRN PRN Reason: Pain, moderate (4-7) Last Admin: 08/07/17 09:41 Dose: 25 mg Epoetin James (Procrit) 10,000 unit IV F [facility] Stop: 08/17/17 09:01 Folic Acid (Folic Acid) 1 mg PO DAILY [facility] Heparin Sodium (Porcine) (Heparin) 5,000 units SC Q12 [facility] Hydralazine HCl (Apresoline) 25 mg PO TID [facility] Last Admin: 08/07/17 09:45 Dose: Not Given Hydromorphone HCl (Dilaudid) 2 mg IVP Q4 PRN PRN Reason: Pain, moderate (4-7) Last Admin: 08/07/17 09:41 Dose: 2 mg Ondansetron HCl (Zofran Inj) 4 mg IVP Q4 PRN PRN Reason: Nausea/Vomiting Last Admin: 08/07/17 06:21 Dose: 4 mg Pantoprazole Sodium (Protonix Inj) 40 mg IVP DAILY [facility] - Labs Labs: 08/06/17 19:59 08/06/17 19:59 - Constitutional Appears: Non-toxic, Unkempt - Head Exam Head Exam: ATRAUMATIC - Eye Exam Eye Exam: EOMI - ENT Exam ENT Exam: Mucous Membranes Moist - Respiratory Exam Respiratory Exam: Clear to Ausculation Bilateral, NORMAL BREATHING PATTERN - Cardiovascular Exam Cardiovascular Exam: REGULAR RHYTHM, +S1, +S2 - GI/Abdominal Exam GI & Abdominal Exam: Soft. absent: Guarding - Extremities Exam Extremities Exam: absent: Calf Tenderness - Neurological Exam Neurological Exam: Alert, Awake, Oriented x3 - Skin Skin Exam: Dry, Intact Assessment and Plan - Assessment and Plan (Free Text) Plan: Sickle Cell Crisis benadryl 25mg IV q4hrs dilaudid 2mg IV q4hrs PICC line ordered 07/30 Dr. Pierce consulted Status Post Nail Avulsion with possible infectious complications Podiatry on board- Dr. Tilley ESRD Dr. Phillips consulted HD today HD normally on // Will follow up recommendations nephro-main 1 tablet PO daily Procrit Creatinine 7.4 (08/07) Nausea Reglan 10mg PO daily zofran 4mg IV q8hrs DM ISS- medium dose neurontin 300mg PO BID Poorly controlled sugars Continue POC monitoring hypoglycemia protocol Hepatitis Diagnosed on previous admission AST/ALT 23/22 (08/06/17) HTN Clonidine 0.3mg PO BID Nifedipine 60mg PO BID Hydralazine 25mg PO TID- ordered for breakthrough HTN but pt refused meds this morning Prophylaxis heparin 5k SC q8hrs Protonix 40mg PO daily Zofran prn nausea Colace Case discussed with Dr. Sexton All management as per Dr. Sexton
[2017-08-07] MEDS ORDERED: Enoxaparin 30 mg Syringe SC SCH (10:00)
[2017-08-07] MEDS: (Novolin R) Insulin Human Regular 100 units/ml vial SC SCH ×3 (12:00→22:46)
--- NOTE | 2017-08-07 13:26 | CP.PCM.CON ---
History of Present Illness - History of Present Illness History of Present Illness: Palliative consult for symptoms management and patient's support Patient is a 31 yo lady admitted from home complaining of sever abdominal pain X 3 days accompanied by vomiting. Patient was hospitalized just until [facility] and she returned on 08/06/2017. Patient had the same episode of abdominal pain recently due to diabetic gastroparesis. On this admission , pain is managed with Dilaudid PRN. PMH: ESRD on HD, asthma, anxiety, chronic pancreatitis Soc. Hx: lives at home with father, unemployed Fam Hx: denied Review of Systems - Constitutional Constitutional: absent: As Per HPI, Anorexia, Chills, Daytime Sleepiness, Excessive Sweating, Fatigue, Fever, Frequent Falls, Headache, Increased Appetite , Lethargy, Malaise, Night Sweats, Snoring, Sleep Apnea, Weight Gain, Weight Loss, Weakness, Other - EENT Eyes: absent: As Per HPI, Blind Spots, Blurred Vision, Change in Vision, Decreased Night Vision, Diplopia, Discharge, Dry Eye, Exophthalmos, Floaters, Irritation, Itchy Eyes, Loss of Peripheral Vision, Pain, Photophobia, Requires Corrective Lenses, Sees Flashes, Spots in Vision, Tunnel Vision, Other Visual Disturbances, Loss of Vision, Other Ears: absent: As Per HPI, Decreased Hearing, Ear Discharge, Ear Pain, Tinnitus, Abnormal Hearing, Disequilibrium, Dizziness, Other Nose/Mouth/Throat: absent: As Per HPI, Epistaxis, Nasal Congestion, Nasal Discharge, Nasal Obstruction, Nasal Trauma, Nose Pain, Post Nasal Drip, Sinus Pain, Sinus Pressure, Bleeding Gums, Change in Voice, Dental Pain, Dry Mouth, Dysphagia, Halitosis, Hoarsness, Lip Swelling, Mouth Lesions, Mouth Pain, Odynophagia, Sore Throat, Throat Swelling, Tongue Swelling, Facial Pain, Neck Pain, Neck Mass, Other - Breasts Breasts: absent: As Per HPI, Change in Shape, Mass, Pain, Nipple Discharge, Nipple Inversion, Skin Changes, Swelling, Other - Cardiovascular Cardiovascular: Rapid Heart Rate - Respiratory Respiratory: absent: As Per HPI, Cough, Dyspnea, Hemoptysis, Dyspnea on Exertion , Wheezing, Snoring, Stridor, Pain on Inspiration, Chest Congestion, Excessive Mucous Production, Change in Mucous Color, Pain with Coughing, Other - Gastrointestinal Gastrointestinal: Abdominal Pain, Nausea - Genitourinary Genitourinary: absent: As Per HPI, Change in Urinary Stream, Difficulty Urinating, Dysuria, Flank Pain, Hematuria, Pyuria, Nocturia, Urinary Incontinence, Urinary Frequency, Urinary Hesitance, Urinary Urgency, Voiding Freq/Small Amts, Freq UTI, Hx Renal/Bladder Calculi, Hx /Renal Surgery, Bladder Distension, Other - Reproductive: Female Reproductive:Female: absent: As Per HPI, Amenorrhea, Amenorrhea/ Control, Currently Menstual, Cycle <21 Days, Cycle >35 Days, Cycle Variable, Menses 1-7 Days, Menses >/= 8 Days, Menses Variable, Cycle > 4 Weeks Between, No Menses for 6 Months, Heavy Menses, Light Menses, Normal Menses, Spotting Between Cycles , S/P Hysterectomy, Menopausal, Post Menopausal, Premenarche, Abnormal Vaginal Bleeding, Dysmenorrhea, Dyspareunia, Genital Lesions, Genital Pruritis, Pelvic Pain, Prolapse Symptoms, Sexual Dysfunction, Vaginal Discharge, Vaginal Dryness , Vaginal Odor, Vaginal Pruritis, Other - Menstruation Menstruation: absent: As Per HPI, Amenorrhea, Amenorrhea/ Control, Currently Menstual, Cycle <21 Days, Cycle >35 Days, Cycle Variable, Menses 1-7 Days, Menses >/= 8 Days, Menses Variable, Cycle > 4 Weeks Between, No Menses for 6 Months, Heavy Menses, Light Menses, Normal Menses, Spotting Between Cycles , S/P Hysterectomy, Menopausal, Post Menopausal, Premenarche, Abnormal Vaginal Bleeding, Dysmenorrhea, Other - Musculoskeletal Musculoskeletal: absent: As Per HPI, Abnormal Gait, Arthralgias, Atrophy, Back Pain, Deformity, Joint Swelling, Limited Range of Motion, Loss of Height, Muscle Cramps, Muscle Weakness, Myalgias, Neck Pain, Numbness, Radiating Pain into Limb, Stiffness, Tingling, Other - Integumentary Integumentary: absent: As Per HPI, Acne, Alopecia, Bleeding Lesions, Change in Hair, Change in Nails, Change in Pigmentation, Changing Lesions, Dry Skin, Erythema, Furuncle, Hirsutism, Lesions, New Lesions, Non-Healing Lesions, Photosensitivity, Pruritus, Rash, Skin Pain, Skin Ulcer, Sores, Striae, Swelling , Unusual Bruising, Wounds, Jaundice, Other - Neurological Neurological: absent: As Per HPI, Abnormal Gait, Abnormal Hearing, Abnormal Movements, Abnormal Speech, Behavioral Changes, Burning Sensations, Confusion, Convulsions, Disequilibrium, Dizziness, Numbness, Focal Weakness, Frequent Falls , Headaches, Lack of Coordination, Loss of Vision, Memory Loss, Paresthesias, Radicular Pain, Restless Legs, Sensory Deficit, Syncope, Tingling, Tremor, Vertigo, Weakness, Other Visual Disturbances, Other - Psychiatric Psychiatric: Anxiety - Endocrine Endocrine: absent: As Per HPI, Change in Body Appearance, Change in Libido, Cold Intolorance, Deepening of Voice, Excessive Sweating, Fatigue, Flushing, Heat Intolorance, Increase in Ring/Shoe/Hat Size, Palpitations, Polydipsia, Polyphagia, Polyuria, Other - Hematologic/Lymphatic Hematologic: absent: As Per HPI, Easy Bleeding, Easy Bruising, Lymphadenopathy, Other Past Patient History - Infectious Disease Hx of Infectious Diseases: None - Tetanus Immunizations Tetanus Immunization: Unknown - Past Medical History & Family History Past Medical History?: Yes - Past Social History Smoking Status: Never Smoked - CARDIAC Hx Cardiac Disorders: Yes Hx Congestive Heart Failure: Yes Hx Hypercholesterolemia: Yes Hx Hypertension: Yes Hx Peripheral Edema: Yes - PULMONARY Hx Respiratory Disorders: Yes Hx Asthma: Yes Hx Bronchitis: Yes Hx Pneumonia: Yes Hx Sleep Apnea: Yes - NEUROLOGICAL Hx Neurological Disorder: Yes Hx Seizures: Yes - HEENT Hx HEENT Problems: Yes Hx Cataracts: Yes Hx Glaucoma: Yes - RENAL Hx Chronic Kidney Disease: Yes Hx Dialysis: Yes Type of Dialysis Access: MELCHOR shunt Date of Last Dialysis Treatment: 08/05/17 Hx Renal Failure: Yes - ENDOCRINE/METABOLIC Hx Endocrine Disorders: Yes Hx Hyperthyroidism: Yes Hx Hypothyroidism: Yes - HEMATOLOGICAL/ONCOLOGICAL Hx Blood Disorders: Yes Hx Anemia: Yes - INTEGUMENTARY Hx Dermatological Problems: Yes Other/Comment: DRY ITCHY SKIN ;multiple/generalized dark spots on skin. left toe blister - MUSCULOSKELETAL/RHEUMATOLOGICAL Hx Musculoskeletal Disorders: Yes Hx Falls: Yes - GASTROINTESTINAL Hx Gastrointestinal Disorders: Yes Hx Gall Bladder Disease: Yes (gallbladder removed) Hx Gastritis: Yes Hx Pancreatitis: Yes (chronic) - GENITOURINARY/GYNECOLOGICAL Hx Genitourinary Disorders: No - PSYCHIATRIC Hx Psychophysiologic Disorder: Yes Hx Anxiety: Yes Hx Substance Use: No - SURGICAL HISTORY Hx Surgeries: Yes Hx Cholecystectomy: Yes Hx Coronary Stent: Yes - ANESTHESIA Hx Anesthesia: Yes Hx Anesthesia Reactions: No Hx Malignant Hyperthermia: No Has any member of the family had a problem w/ anesthesia?: No Meds Allergies/Adverse Reactions: Allergies Allergy/AdvReac Type Severity Reaction Status Date / Time ketorolac tromethamine Allergy RASH Verified 07/27/17 13:38 [From Toradol] latex Allergy RASH Verified 07/27/17 13:38 morphine Allergy RASH Verified 07/27/17 13:38 tramadol Allergy RASH Verified 07/27/17 13:38 - Medications Medications: Current Medications Clonidine HCl (Catapres) 0.3 mg PO BID [facility] Last Admin: 08/07/17 09:44 Dose: Not Given Diphenhydramine HCl (Benadryl) 25 mg IVP Q4 PRN PRN Reason: Pain, moderate (4-7) Last Admin: 08/07/17 09:41 Dose: 25 mg Epoetin James (Procrit) 10,000 unit IV MWF [facility] Stop: 08/17/17 09:01 Folic Acid (Folic Acid) 1 mg PO DAILY [facility] Last Admin: 08/07/17 11:17 Dose: Not Given Gabapentin (Neurontin) 300 mg PO BID [facility] Heparin Sodium (Porcine) (Heparin) 5,000 units SC Q12 [facility] Hydralazine HCl (Apresoline) 25 mg PO TID [facility] Last Admin: 08/07/17 09:45 Dose: Not Given Hydromorphone HCl (Dilaudid) 2 mg IVP Q4 PRN PRN Reason: Pain, moderate (4-7) Last Admin: 08/07/17 09:41 Dose: 2 mg Insulin Human Regular (Novolin R) 0 unit SC [facility] PRN Reason: Protocol Last Admin: 08/07/17 12:00 Dose: Not Given Metoclopramide HCl (Reglan) 10 mg PO DAILY [facility] Ondansetron HCl (Zofran Inj) 4 mg IVP Q4 PRN PRN Reason: Nausea/Vomiting Last Admin: 08/07/17 06:21 Dose: 4 mg Pantoprazole Sodium (Protonix Inj) 40 mg IVP DAILY [facility] Last Admin: 08/07/17 10:12 Dose: Not Given Physical Exam - Constitutional Appears: Chronically Ill - Head Exam Head Exam: ATRAUMATIC, NORMAL INSPECTION, NORMOCEPHALIC - Eye Exam Eye Exam: EOMI, Normal appearance, PERRL Pupil Exam: NORMAL ACCOMODATION, PERRL - ENT Exam ENT Exam: Mucous Membranes Moist, Normal Exam - Neck Exam Neck exam: Positive for: Normal Inspection - Respiratory Exam Respiratory Exam: Clear to Auscultation Bilateral, NORMAL BREATHING PATTERN - Cardiovascular Exam Cardiovascular Exam: Tachycardia, REGULAR RHYTHM - GI/Abdominal Exam GI & Abdominal Exam: Guarding, Normal Bowel Sounds - Rectal Exam Rectal Exam: Deferred - Extremities Exam Extremities exam: Positive for: normal inspection - Back Exam Back exam: NORMAL INSPECTION - Neurological Exam Neurological exam: Alert, Oriented x3 - Psychiatric Exam Psychiatric exam: Anxious - Skin Skin Exam: Dry, Intact, Normal Color, Warm Results - Vital Signs Recent Vital Signs: Last Vital Signs Temp 97.0 F L 08/07/17 07:15 Pulse 81 08/07/17 07:30 Resp 18 08/07/17 07:30 BP 200/107 H 08/07/17 07:30 Pulse Ox 93 L 08/07/17 07:15 - Labs Result Diagrams: 08/06/17 19:59 08/06/17 19:59 Labs: Laboratory Results - last 24 hr 08/06/17 08/06/17 08/07/17 19:59 19:59 06:25 WBC 7.1 RBC 3.05 L Hgb 9.5 L Hct 29.3 L MCV 96.0 MCH 31.2 H MCHC 32.5 L RDW 18.3 H Plt Count 354 MPV 7.4 Neut % (Auto) 80.6 H Lymph % (Auto) 9.8 L [place]on % (Auto) 5.3 Eos % (Auto) 2.9 Baso % (Auto) 1.4 Neut # 5.7 Lymph # 0.7 L [place]on # 0.4 Eos # 0.2 Baso # 0.1 Neutrophils % (Manual) 86 H Lymphocytes % (Manual) 8 L Monocytes % (Manual) 4 Eosinophils % (Manual) 1 Basophils % (Manual) 1 Platelet Estimate Normal Polychromasia Slight Anisocytosis (manual) Moderate Retic Count Sodium 130 L Potassium 4.2 Chloride 86 L Carbon Dioxide 29 Anion Gap 19 BUN 42 H Creatinine 7.4 H* D Est GFR ( Amer) 8 Est GFR (Non-Af Amer) 6 POC Glucose (mg/dL) 292 H Random Glucose 360 H Calcium 7.7 L Ferritin Total Bilirubin 0.7 AST 23 ALT 22 Alkaline Phosphatase 155 H Total Protein 7.6 Albumin 4.0 Globulin 3.7 Albumin/Globulin Ratio 1.1 Lipase 38 Vitamin B12 Folate 08/07/17 08/07/17 08/07/17 07:06 07:06 11:24 WBC RBC Hgb Hct MCV MCH MCHC RDW Plt Count MPV Neut % (Auto) Lymph % (Auto) Kenton % (Auto) Eos % (Auto) Baso % (Auto) Neut # Lymph # [place]on # Eos # Baso # Neutrophils % (Manual) Lymphocytes % (Manual) Monocytes % (Manual) Eosinophils % (Manual) Basophils % (Manual) Platelet Estimate Polychromasia Anisocytosis (manual) Retic Count 5.1 H D Sodium Potassium Chloride Carbon Dioxide Anion Gap BUN Creatinine Est GFR ( Amer) Est GFR (Non-Af Amer) POC Glucose (mg/dL) 269 H Random Glucose Calcium Ferritin 835.0 Total Bilirubin AST ALT Alkaline Phosphatase Total Protein Albumin Globulin Albumin/Globulin Ratio Lipase Vitamin B12 638 Folate > 20.0 Assessment & Plan - Assessment and Plan (Free Text) Assessment: Palliative consult Palliative consult Code status Full Code,m there is no advance directive on chart, PPS 70% I reviewed medical records, all diagnostic studis, examined and interviewed patient in the bed. Patient is alert, oriented X 3 with affect that is anxious. patient begun crying as soon as she saw me and saying " Help me, please I am in pain". Patient describes her pain as sharp, constant, and localized to RUQ. Upon exam, no palpable masses noted. Abdomen is flat, with normal bowel sounds.Patient reports her pain is controlled only up to 3 hr on Dilaudid. Denies constipation. Complains of nausea, reports poor appetite. Zofran Iv PRN on board. The rest of exam is unremarkable. BP 171/147. Per nursing , patient does not take her meds as ordered. patient refuses other meds as well. The need to take meds as ordered discussed with patient. Patient cried most of the time I spent with her with , complaining of pain. Impression * This is a very unfortunate, young lady with multiple co morbidities affecting her quality of life * Subjective severe abdominal pain * High anxiety and restlessness with uncontroled BP ; could be the sign of opioid withdrawal if patient had used any while at home * Non compliance with medical regimen Suggestion * Would consider the psych consult for treatment of severe anxiety and to discuss the pain meds dependency * Patient would need the long acting pain meds for intractable pain. Based on TDD od Dilaudid patient would need about 270 mg of Morphine in 24 hr to control intactable pain. We can start MS Contine 30 mg PO Q 8 hr scheduled and Morphine 10 mg PO Q 4 hr PRN pain * Would refer to outpatient pain management upon discharge * Would refer to Psychologist office to fallow up as outpatient Thank you very much for consulting Palliative care
--- NOTE | 2017-08-07 13:35 | CP.PCM.CON ---
History of Present Illness - History of Present Illness History of Present Illness: Podiatry Progress Note for Dr. Tilley 31 year old female with PMHx of CHF, HTN, DM, anemia, anxiety, asthma, gastritis , GI ulcer, GB disease [gallbladder removed], hepatitis hypercholesterolemia, hyperthyroidism, renal stone, pancreatitis, ESRD was seen at bedside this morning after request for podiatry consultation. Patient is currently 3 weeks s/ p bilateral 3rd digit total nail avulsion and Left hallux partial nail avulsion. Patient states that she was just discharged form the hospital 1 week ago, but is back with same problem of abdominal pain. Patient is seen resting comfortably in bed with gauze dressing to bilateral feet. Patient denies of any pain to the left hallux, but admits pain to bilateral 3rd digit at the site of nail avulsions. Patient denies of any other pedal complains. She denies any n/v/ f/c/sob/cp. Review of Systems - Constitutional Constitutional: As Per HPI Past Patient History - Infectious Disease Hx of Infectious Diseases: None - Tetanus Immunizations Tetanus Immunization: Unknown - Past Medical History & Family History Past Medical History?: Yes - Past Social History Smoking Status: Never Smoked - CARDIAC Hx Cardiac Disorders: Yes Hx Congestive Heart Failure: Yes Hx Hypercholesterolemia: Yes Hx Hypertension: Yes Hx Peripheral Edema: Yes - PULMONARY Hx Respiratory Disorders: Yes Hx Asthma: Yes Hx Bronchitis: Yes Hx Pneumonia: Yes Hx Sleep Apnea: Yes - NEUROLOGICAL Hx Neurological Disorder: Yes Hx Seizures: Yes - HEENT Hx HEENT Problems: Yes Hx Cataracts: Yes Hx Glaucoma: Yes - RENAL Hx Chronic Kidney Disease: Yes Hx Dialysis: Yes Type of Dialysis Access: MELCHOR shunt Date of Last Dialysis Treatment: 08/05/17 Hx Renal Failure: Yes - ENDOCRINE/METABOLIC Hx Endocrine Disorders: Yes Hx Hyperthyroidism: Yes Hx Hypothyroidism: Yes - HEMATOLOGICAL/ONCOLOGICAL Hx Blood Disorders: Yes Hx Anemia: Yes - INTEGUMENTARY Hx Dermatological Problems: Yes Other/Comment: DRY ITCHY SKIN ;multiple/generalized dark spots on skin. left toe blister - MUSCULOSKELETAL/RHEUMATOLOGICAL Hx Musculoskeletal Disorders: Yes Hx Falls: Yes - GASTROINTESTINAL Hx Gastrointestinal Disorders: Yes Hx Gall Bladder Disease: Yes (gallbladder removed) Hx Gastritis: Yes Hx Pancreatitis: Yes (chronic) - GENITOURINARY/GYNECOLOGICAL Hx Genitourinary Disorders: No - PSYCHIATRIC Hx Psychophysiologic Disorder: Yes Hx Anxiety: Yes Hx Substance Use: No - SURGICAL HISTORY Hx Surgeries: Yes Hx Cholecystectomy: Yes Hx Coronary Stent: Yes - ANESTHESIA Hx Anesthesia: Yes Hx Anesthesia Reactions: No Hx Malignant Hyperthermia: No Has any member of the family had a problem w/ anesthesia?: No Meds Allergies/Adverse Reactions: Allergies Allergy/AdvReac Type Severity Reaction Status Date / Time ketorolac tromethamine Allergy RASH Verified 07/27/17 13:38 [From Toradol] latex Allergy RASH Verified 07/27/17 13:38 morphine Allergy RASH Verified 07/27/17 13:38 tramadol Allergy RASH Verified 07/27/17 13:38 - Medications Medications: Current Medications Clonidine HCl (Catapres) 0.3 mg PO BID [facility] Last Admin: 08/07/17 09:44 Dose: Not Given Diphenhydramine HCl (Benadryl) 25 mg IVP Q4 PRN PRN Reason: Pain, moderate (4-7) Last Admin: 08/07/17 09:41 Dose: 25 mg Epoetin James (Procrit) 10,000 unit IV [facility] Stop: 08/17/17 09:01 Folic Acid (Folic Acid) 1 mg PO DAILY [facility] Last Admin: 08/07/17 11:17 Dose: Not Given Gabapentin (Neurontin) 300 mg PO BID [facility] Heparin Sodium (Porcine) (Heparin) 5,000 units SC Q12 [facility] Hydralazine HCl (Apresoline) 25 mg PO TID [facility] Last Admin: 08/07/17 09:45 Dose: Not Given Hydromorphone HCl (Dilaudid) 2 mg IVP Q4 PRN PRN Reason: Pain, moderate (4-7) Last Admin: 08/07/17 09:41 Dose: 2 mg Insulin Human Regular (Novolin R) 0 unit SC ACHS [facility] PRN Reason: Protocol Last Admin: 08/07/17 12:00 Dose: Not Given Metoclopramide HCl (Reglan) 10 mg PO DAILY [facility] Ondansetron HCl (Zofran Inj) 4 mg IVP Q4 PRN PRN Reason: Nausea/Vomiting Last Admin: 08/07/17 06:21 Dose: 4 mg Pantoprazole Sodium (Protonix Inj) 40 mg IVP DAILY [facility] Last Admin: 08/07/17 10:12 Dose: Not Given Physical Exam - Constitutional Appears: Well, Non-toxic, No Acute Distress - Head Exam Head Exam: ATRAUMATIC - Extremities Exam Additional comments: Bilateral lower extremity exam DERM: LEFT: Small open wound noted to Left 3rd digit distal aspect at the site of nail avulsion measuring 0.5cm x 0.2cm x 0.3cm with mild erythema around the site of nail avulsion. No Probe to bone. No drainage is noted. No mal odor is noted. No sign of acute infection is noted. RIGHT:No open wound is noted to the right 3rd digit. No drainage is noted. Mild erythema is noted to the right 3rd digit. No sign of acute infection is noted. No mal-odor is noted. Vasc: DP and PT pulses palpable 2/4 bilaterally, MOLD SETTER less than 3 seconds to all digits bilaterally, mild localized non-pitting edema noted to the 3rd digits bilaterally Ortho: tenderness noted to the left 3rd digit, less tenderness noted to the right 3rd digit and left hallux. Neuro: gross sensation intact, protective sensation diminished - Neurological Exam Neurological exam: Alert, Normal Gait, Oriented x3 - Psychiatric Exam Psychiatric exam: Normal Affect, Normal Mood - Skin Skin Exam: Warm Results - Vital Signs Recent Vital Signs: Last Vital Signs Temp 97.0 F L 08/07/17 07:15 Pulse 81 08/07/17 07:30 Resp 18 08/07/17 07:30 BP 200/107 H 08/07/17 07:30 Pulse Ox 93 L 08/07/17 07:15 - Labs Result Diagrams: 08/06/17 19:59 08/06/17 19:59 Labs: Laboratory Results - last 24 hr 08/06/17 08/06/17 08/07/17 19:59 19:59 06:25 WBC 7.1 RBC 3.05 L Hgb 9.5 L Hct 29.3 L MCV 96.0 MCH 31.2 H MCHC 32.5 L RDW 18.3 H Plt Count 354 MPV 7.4 Neut % (Auto) 80.6 H Lymph % (Auto) 9.8 L [place] % (Auto) 5.3 Eos % (Auto) 2.9 Baso % (Auto) 1.4 Neut # 5.7 Lymph # 0.7 L [place] # 0.4 Eos # 0.2 Baso # 0.1 Neutrophils % (Manual) 86 H Lymphocytes % (Manual) 8 L Monocytes % (Manual) 4 Eosinophils % (Manual) 1 Basophils % (Manual) 1 Platelet Estimate Normal Polychromasia Slight Anisocytosis (manual) Moderate Retic Count Sodium 130 L Potassium 4.2 Chloride 86 L Carbon Dioxide 29 Anion Gap 19 BUN 42 H Creatinine 7.4 H* D Est GFR ( Amer) 8 Est GFR (Non-Af Amer) 6 POC Glucose (mg/dL) 292 H Random Glucose 360 H Calcium 7.7 L Ferritin Total Bilirubin 0.7 AST 23 ALT 22 Alkaline Phosphatase 155 H Total Protein 7.6 Albumin 4.0 Globulin 3.7 Albumin/Globulin Ratio 1.1 Lipase 38 Vitamin B12 Folate 08/07/17 08/07/17 08/07/17 07:06 07:06 11:24 WBC RBC Hgb Hct MCV MCH MCHC RDW Plt Count MPV Neut % (Auto) Lymph % (Auto) [place] % (Auto) Eos % (Auto) Baso % (Auto) Neut # Lymph # [place] # Eos # Baso # Neutrophils % (Manual) Lymphocytes % (Manual) Monocytes % (Manual) Eosinophils % (Manual) Basophils % (Manual) Platelet Estimate Polychromasia Anisocytosis (manual) Retic Count 5.1 H D Sodium Potassium Chloride Carbon Dioxide Anion Gap BUN Creatinine Est GFR ( Amer) Est GFR (Non-Af Amer) POC Glucose (mg/dL) 269 H Random Glucose Calcium Ferritin 835.0 Total Bilirubin AST ALT Alkaline Phosphatase Total Protein Albumin Globulin Albumin/Globulin Ratio Lipase Vitamin B12 638 Folate > 20.0 Assessment & Plan - Assessment and Plan (Free Text) Assessment: 31 year old female patient 3 weeks s/p bilateral 3rd digit total nail avulsion and left great toe partial nail avulsion Plan: Patient examined and evaluated at bedside this AM Discussed in detail with the attending Dr. Tilley Charts, labs, vitals reviewed -afebrile Surgical incisions cleansed with peroxide and dressed with DSD Surgical site to be cleansed with peroxide and dressed with 4x4 and cling Q8H Podiatry will continue to follow patient in house
[2017-08-07 15:43] LABS: INR 1.2
[2017-08-07] MEDS ORDERED: DiphenhydrAMINE 50 mg/ml Inj IVP ONE (15:45)
--- NOTE | 2017-08-07 17:43 | CP.PCM.HP ---
Past Patient History - Infectious Disease Hx of Infectious Diseases: None - Tetanus Immunizations Tetanus Immunization: Unknown - Past Medical History & Family History Past Medical History?: Yes - Past Social History Smoking Status: Never Smoked - CARDIAC Hx Cardiac Disorders: Yes Hx Congestive Heart Failure: Yes Hx Hypercholesterolemia: Yes Hx Hypertension: Yes Hx Peripheral Edema: Yes - PULMONARY Hx Respiratory Disorders: Yes Hx Asthma: Yes Hx Bronchitis: Yes Hx Pneumonia: Yes Hx Sleep Apnea: Yes - NEUROLOGICAL Hx Neurological Disorder: Yes Hx Seizures: Yes - HEENT Hx HEENT Problems: Yes Hx Cataracts: Yes Hx Glaucoma: Yes - RENAL Hx Chronic Kidney Disease: Yes Hx Dialysis: Yes Type of Dialysis Access: MELCHOR shunt Date of Last Dialysis Treatment: 08/05/17 Hx Renal Failure: Yes - ENDOCRINE/METABOLIC Hx Endocrine Disorders: Yes Hx Hyperthyroidism: Yes Hx Hypothyroidism: Yes - HEMATOLOGICAL/ONCOLOGICAL Hx Blood Disorders: Yes Hx Anemia: Yes - INTEGUMENTARY Hx Dermatological Problems: Yes Other/Comment: DRY ITCHY SKIN ;multiple/generalized dark spots on skin. left toe blister - MUSCULOSKELETAL/RHEUMATOLOGICAL Hx Musculoskeletal Disorders: Yes Hx Falls: Yes - GASTROINTESTINAL Hx Gastrointestinal Disorders: Yes Hx Gall Bladder Disease: Yes (gallbladder removed) Hx Gastritis: Yes Hx Pancreatitis: Yes (chronic) - GENITOURINARY/GYNECOLOGICAL Hx Genitourinary Disorders: No - PSYCHIATRIC Hx Psychophysiologic Disorder: Yes Hx Anxiety: Yes Hx Substance Use: No - SURGICAL HISTORY Hx Surgeries: Yes Hx Cholecystectomy: Yes Hx Coronary Stent: Yes - ANESTHESIA Hx Anesthesia: Yes Hx Anesthesia Reactions: No Hx Malignant Hyperthermia: No Has any member of the family had a problem w/ anesthesia?: No Meds Allergies/Adverse Reactions: Allergies Allergy/AdvReac Type Severity Reaction Status Date / Time ketorolac tromethamine Allergy RASH Verified 07/27/17 13:38 [From Toradol] latex Allergy RASH Verified 07/27/17 13:38 morphine Allergy RASH Verified 07/27/17 13:38 tramadol Allergy RASH Verified 07/27/17 13:38 Physical Exam - Constitutional Appears: Well - Head Exam Head Exam: ATRAUMATIC, NORMAL INSPECTION, NORMOCEPHALIC - Eye Exam Eye Exam: EOMI, Normal appearance, PERRL Pupil Exam: NORMAL ACCOMODATION, PERRL - ENT Exam ENT Exam: Mucous Membranes Moist, Normal Exam - Neck Exam Neck exam: Positive for: Normal Inspection - Respiratory Exam Respiratory Exam: Decreased Breath Sounds - Cardiovascular Exam Cardiovascular Exam: REGULAR RHYTHM, +S1, +S2 - GI/Abdominal Exam GI & Abdominal Exam: Diminished Bowel Sounds, Soft - Rectal Exam Rectal Exam: Deferred Results - Vital Signs Recent Vital Signs: Last Vital Signs Temp 97.3 F L 08/07/17 14:53 Pulse 87 08/07/17 14:53 Resp 16 08/07/17 14:53 BP 170/102 H 08/07/17 15:55 Pulse Ox 96 08/07/17 15:05 - Labs Result Diagrams: 08/06/17 19:59 08/06/17 19:59 Labs: Laboratory Results - last 24 hr 08/06/17 08/06/17 08/07/17 19:59 19:59 06:25 WBC 7.1 RBC 3.05 L Hgb 9.5 L Hct 29.3 L MCV 96.0 MCH 31.2 H MCHC 32.5 L RDW 18.3 H Plt Count 354 MPV 7.4 Neut % (Auto) 80.6 H Lymph % (Auto) 9.8 L [place] % (Auto) 5.3 Eos % (Auto) 2.9 Baso % (Auto) 1.4 Neut # 5.7 Lymph # 0.7 L [place] # 0.4 Eos # 0.2 Baso # 0.1 Neutrophils % (Manual) 86 H Lymphocytes % (Manual) 8 L Monocytes % (Manual) 4 Eosinophils % (Manual) 1 Basophils % (Manual) 1 Platelet Estimate Normal Polychromasia Slight Anisocytosis (manual) Moderate Retic Count PT INR APTT Sodium 130 L Potassium 4.2 Chloride 86 L Carbon Dioxide 29 Anion Gap 19 BUN 42 H Creatinine 7.4 H* D Est GFR ( Amer) 8 Est GFR (Non-Af Amer) 6 POC Glucose (mg/dL) 292 H Random Glucose 360 H Calcium 7.7 L Ferritin Total Bilirubin 0.7 AST 23 ALT 22 Alkaline Phosphatase 155 H Total Protein 7.6 Albumin 4.0 Globulin 3.7 Albumin/Globulin Ratio 1.1 Lipase 38 Vitamin B12 Folate 08/07/17 08/07/17 08/07/17 07:06 07:06 11:24 WBC RBC Hgb Hct MCV MCH MCHC RDW Plt Count MPV Neut % (Auto) Lymph % (Auto) [place] % (Auto) Eos % (Auto) Baso % (Auto) Neut # Lymph # [place] # Eos # Baso # Neutrophils % (Manual) Lymphocytes % (Manual) Monocytes % (Manual) Eosinophils % (Manual) Basophils % (Manual) Platelet Estimate Polychromasia Anisocytosis (manual) Retic Count 5.1 H D PT INR APTT Sodium Potassium Chloride Carbon Dioxide Anion Gap BUN Creatinine Est GFR ( Amer) Est GFR (Non-Af Amer) POC Glucose (mg/dL) 269 H Random Glucose Calcium Ferritin 835.0 Total Bilirubin AST ALT Alkaline Phosphatase Total Protein Albumin Globulin Albumin/Globulin Ratio Lipase Vitamin B12 638 Folate > 20.0 08/07/17 08/07/17 15:27 16:42 WBC RBC Hgb Hct MCV MCH MCHC RDW Plt Count MPV Neut % (Auto) Lymph % (Auto) [place] % (Auto) Eos % (Auto) Baso % (Auto) Neut # Lymph # [place] # Eos # Baso # Neutrophils % (Manual) Lymphocytes % (Manual) Monocytes % (Manual) Eosinophils % (Manual) Basophils % (Manual) Platelet Estimate Polychromasia Anisocytosis (manual) Retic Count PT 13.1 H INR 1.2 APTT 31 Sodium Potassium Chloride Carbon Dioxide Anion Gap BUN Creatinine Est GFR ( Amer) Est GFR (Non-Af Amer) POC Glucose (mg/dL) 162 H Random Glucose Calcium Ferritin Total Bilirubin AST ALT Alkaline Phosphatase Total Protein Albumin Globulin Albumin/Globulin Ratio Lipase Vitamin B12 Folate
--- NOTE | 2017-08-07 19:10 | CP.PCM.CON ---
History of Present Illness - History of Present Illness History of Present Illness: 31 year old female with a history of DM, gastroparesis, ESRD on HD, admitted with abdominal pain, with anemia. The patient reports to being anemic since she was a teenager. She denies abnormal bleeding and bruising. She has not required a transfusion recently but has required them in the past. She denies fevers and chills. Her abdominal pain is improved. Past medical history: DM, gastroparesis, ESRD on HD, anemia Past surgical history: Cholecystectomy, right thigh surgery related to infection Family history: Aunt had breast cancer Social history: Denies tobacco, alcohol, and illicit drug use. Allergies: Several, see list. Review of systems: All remaining review of systems including HEENT, cardiovascular, respiratory, gastrointestinal, genitourinary, musculoskeletal, dermatologic, neurologic, and psychiatric are negative unless mentioned in the HPI. Past Patient History - Infectious Disease Hx of Infectious Diseases: None - Tetanus Immunizations Tetanus Immunization: Unknown - Past Medical History & Family History Past Medical History?: Yes - Past Social History Smoking Status: Never Smoked - CARDIAC Hx Cardiac Disorders: Yes Hx Congestive Heart Failure: Yes Hx Hypercholesterolemia: Yes Hx Hypertension: Yes Hx Peripheral Edema: Yes - PULMONARY Hx Respiratory Disorders: Yes Hx Asthma: Yes Hx Bronchitis: Yes Hx Pneumonia: Yes Hx Sleep Apnea: Yes - NEUROLOGICAL Hx Neurological Disorder: Yes Hx Seizures: Yes - HEENT Hx HEENT Problems: Yes Hx Cataracts: Yes Hx Glaucoma: Yes - RENAL Hx Chronic Kidney Disease: Yes Hx Dialysis: Yes Type of Dialysis Access: MELCHOR shunt Date of Last Dialysis Treatment: 08/05/17 Hx Renal Failure: Yes - ENDOCRINE/METABOLIC Hx Endocrine Disorders: Yes Hx Hyperthyroidism: Yes Hx Hypothyroidism: Yes - HEMATOLOGICAL/ONCOLOGICAL Hx Blood Disorders: Yes Hx Anemia: Yes - INTEGUMENTARY Hx Dermatological Problems: Yes Other/Comment: DRY ITCHY SKIN ;multiple/generalized dark spots on skin. left toe blister - MUSCULOSKELETAL/RHEUMATOLOGICAL Hx Musculoskeletal Disorders: Yes Hx Falls: Yes - GASTROINTESTINAL Hx Gastrointestinal Disorders: Yes Hx Gall Bladder Disease: Yes (gallbladder removed) Hx Gastritis: Yes Hx Pancreatitis: Yes (chronic) - GENITOURINARY/GYNECOLOGICAL Hx Genitourinary Disorders: No - PSYCHIATRIC Hx Psychophysiologic Disorder: Yes Hx Anxiety: Yes Hx Substance Use: No - SURGICAL HISTORY Hx Surgeries: Yes Hx Cholecystectomy: Yes Hx Coronary Stent: Yes - ANESTHESIA Hx Anesthesia: Yes Hx Anesthesia Reactions: No Hx Malignant Hyperthermia: No Has any member of the family had a problem w/ anesthesia?: No Meds Allergies/Adverse Reactions: Allergies Allergy/AdvReac Type Severity Reaction Status Date / Time ketorolac tromethamine Allergy RASH Verified 07/27/17 13:38 [From Toradol] latex Allergy RASH Verified 07/27/17 13:38 morphine Allergy RASH Verified 07/27/17 13:38 tramadol Allergy RASH Verified 07/27/17 13:38 - Medications Medications: Current Medications Clonidine HCl (Catapres) 0.3 mg PO BID [facility] Diphenhydramine HCl (Benadryl) 25 mg IVP Q4 PRN PRN Reason: Pain, moderate (4-7) Epoetin James (Procrit) 10,000 unit IV TTS [facility] Stop: 08/18/17 10:01 Last Admin: 08/07/17 17:31 Dose: 10,000 unit Folic Acid (Folic Acid) 1 mg PO DAILY [facility] Last Admin: 08/07/17 11:17 Dose: Not Given Gabapentin (Neurontin) 300 mg PO BID [facility] Heparin Sodium (Porcine) (Heparin) 5,000 units SC Q12 [facility] Hydralazine HCl (Apresoline) 25 mg PO TID [facility] Last Admin: 08/07/17 13:49 Dose: 25 mg Hydromorphone HCl (Dilaudid) 2 mg IVP Q4 PRN PRN Reason: Pain, moderate (4-7) Last Admin: 08/07/17 13:43 Dose: 2 mg Insulin Human Regular (Novolin R) 0 unit SC ACHS [facility] PRN Reason: Protocol Last Admin: 08/07/17 12:00 Dose: Not Given Metoclopramide HCl (Reglan) 10 mg PO DAILY [facility] Ondansetron HCl (Zofran Inj) 4 mg IVP Q4 PRN PRN Reason: Nausea/Vomiting Last Admin: 08/07/17 14:05 Dose: 4 mg Pantoprazole Sodium (Protonix Inj) 40 mg IVP DAILY [facility] Last Admin: 08/07/17 10:12 Dose: Not Given Physical Exam - Head Exam Head Exam: ATRAUMATIC - Eye Exam Eye Exam: Normal appearance - ENT Exam ENT Exam: Mucous Membranes Dry - Respiratory Exam Respiratory Exam: NORMAL BREATHING PATTERN - Cardiovascular Exam Cardiovascular Exam: +S1, +S2 - GI/Abdominal Exam GI & Abdominal Exam: Normal Bowel Sounds Results - Vital Signs Recent Vital Signs: Last Vital Signs Temp 97.4 F L 08/07/17 17:40 Pulse 87 08/07/17 18:58 Resp 16 08/07/17 18:58 BP 207/109 H 08/07/17 18:58 Pulse Ox 98 08/07/17 17:40 - Labs Result Diagrams: 08/06/17 19:59 08/06/17 19:59 Labs: Laboratory Results - last 24 hr 08/06/17 08/06/17 08/07/17 19:59 19:59 06:25 WBC 7.1 RBC 3.05 L Hgb 9.5 L Hct 29.3 L MCV 96.0 MCH 31.2 H MCHC 32.5 L RDW 18.3 H Plt Count 354 MPV 7.4 Neut % (Auto) 80.6 H Lymph % (Auto) 9.8 L [place] % (Auto) 5.3 Eos % (Auto) 2.9 Baso % (Auto) 1.4 Neut # 5.7 Lymph # 0.7 L [place] # 0.4 Eos # 0.2 Baso # 0.1 Neutrophils % (Manual) 86 H Lymphocytes % (Manual) 8 L Monocytes % (Manual) 4 Eosinophils % (Manual) 1 Basophils % (Manual) 1 Platelet Estimate Normal Polychromasia Slight Anisocytosis (manual) Moderate Retic Count PT INR APTT Sodium 130 L Potassium 4.2 Chloride 86 L Carbon Dioxide 29 Anion Gap 19 BUN 42 H Creatinine 7.4 H* D Est GFR ( Amer) 8 Est GFR (Non-Af Amer) 6 POC Glucose (mg/dL) 292 H Random Glucose 360 H Calcium 7.7 L Ferritin Total Bilirubin 0.7 AST 23 ALT 22 Alkaline Phosphatase 155 H Total Protein 7.6 Albumin 4.0 Globulin 3.7 Albumin/Globulin Ratio 1.1 Lipase 38 Vitamin B12 Folate 08/07/17 08/07/17 08/07/17 07:06 07:06 11:24 WBC RBC Hgb Hct MCV MCH MCHC RDW Plt Count MPV Neut % (Auto) Lymph % (Auto) [place] % (Auto) Eos % (Auto) Baso % (Auto) Neut # Lymph # [place] # Eos # Baso # Neutrophils % (Manual) Lymphocytes % (Manual) Monocytes % (Manual) Eosinophils % (Manual) Basophils % (Manual) Platelet Estimate Polychromasia Anisocytosis (manual) Retic Count 5.1 H D PT INR APTT Sodium Potassium Chloride Carbon Dioxide Anion Gap BUN Creatinine Est GFR ( Amer) Est GFR (Non-Af Amer) POC Glucose (mg/dL) 269 H Random Glucose Calcium Ferritin 835.0 Total Bilirubin AST ALT Alkaline Phosphatase Total Protein Albumin Globulin Albumin/Globulin Ratio Lipase Vitamin B12 638 Folate > 20.0 08/07/17 08/07/17 15:27 16:42 WBC RBC Hgb Hct MCV MCH MCHC RDW Plt Count MPV Neut % (Auto) Lymph % (Auto) [place] % (Auto) Eos % (Auto) Baso % (Auto) Neut # Lymph # [place] # Eos # Baso # Neutrophils % (Manual) Lymphocytes % (Manual) Monocytes % (Manual) Eosinophils % (Manual) Basophils % (Manual) Platelet Estimate Polychromasia Anisocytosis (manual) Retic Count PT 13.1 H INR 1.2 APTT 31 Sodium Potassium Chloride Carbon Dioxide Anion Gap BUN Creatinine Est GFR ( Amer) Est GFR (Non-Af Amer) POC Glucose (mg/dL) 162 H Random Glucose Calcium Ferritin Total Bilirubin AST ALT Alkaline Phosphatase Total Protein Albumin Globulin Albumin/Globulin Ratio Lipase Vitamin B12 Folate Assessment & Plan (1) Anemia Assessment and Plan: no evidence of nutritional deficiency anemia of chronic kidney disease, on EPO per renal Thank you for this interesting consult. Status: Acute
[2017-08-08] MEDS: DiphenhydrAMINE 50 mg/ml Inj IVP PRN ×6 (00:03→20:29)
[2017-08-08 06:23] LABS: BASO # 0.1 K/uL (0.0-0.2); BASO % 1.7 % (0.0-2.0); EOS # 0.4 K/uL (0.0-0.7); EOS % 7.1 % (0.0-4.0); HEMATOCRIT 28.1 % (34.0-47.0); LYMPH # 1.3 K/uL (1.0-4.3); LYMPH % 20.3 % (20.0-40.0); MEAN CELL VOLUME 97.4 fL (81.0-99.0); MEAN CORPUSCULAR HEMOGLOBIN 31.2 pg (27.0-31.0); MEAN PLATELET VOLUME 7.9 fL (7.2-11.7); MONO # 0.6 K/uL (0.0-0.8); RED CELL DISTRIBUTION WIDTH 17.9 % (11.5-14.5); WHITE BLOOD COUNT 6.2 K/uL (4.8-10.8)
--- NOTE | 2017-08-08 06:58 | CP.PCM.PN ---
Subjective - Date & Time of Evaluation Date of Evaluation: 08/08/17 Time of Evaluation: 09:00 - Subjective Subjective: Medicine progress note for Dr. Edilia Sexton: Pt seen and examined at bedside. She left for [place] and returned to the hospital for readmission. She is complaining of abdominal pain particularly and diffuse pain as well. She is wondering if she is in withdrawal because she was out of pain meds over the weekend. She states that she is not able to eat much. Patient is still refusing blood pressure meds stating that her BP is normal if she is not in pain. Objective - Vital Signs/Intake and Output Vital Signs (last 24 hours): Temp Pulse Resp BP Pulse Ox 97.6 F 78 20 146/84 96 08/07/17 23:05 08/07/17 23:05 08/07/17 23:05 08/07/17 23:05 08/07/17 23:05 Intake and Output: 08/07/17 08/08/17 18:59 06:59 Intake Total 20 Balance 20 - Medications Medications: Current Medications Clonidine HCl (Catapres) 0.3 mg PO BID [facility] Last Admin: 08/07/17 19:33 Dose: 0.3 mg Diphenhydramine HCl (Benadryl) 25 mg IVP Q4 PRN PRN Reason: Pain, moderate (4-7) Last Admin: 08/08/17 04:09 Dose: 25 mg Epoetin James (Procrit) 10,000 unit IV TTS [facility] Stop: 08/18/17 10:01 Last Admin: 08/07/17 17:31 Dose: 10,000 unit Folic Acid (Folic Acid) 1 mg PO DAILY [facility] Last Admin: 08/07/17 11:17 Dose: Not Given Gabapentin (Neurontin) 300 mg PO BID [facility] Last Admin: 08/07/17 19:31 Dose: 300 mg Heparin Sodium (Porcine) (Heparin) 5,000 units SC Q12 [facility] Hydralazine HCl (Apresoline) 25 mg PO TID [facility] Last Admin: 08/07/17 19:33 Dose: 25 mg Hydromorphone HCl (Dilaudid) 2 mg IVP Q4 PRN PRN Reason: Pain, moderate (4-7) Last Admin: 08/08/17 04:09 Dose: 2 mg Insulin Human Regular (Novolin R) 0 unit SC ACHS [facility] PRN Reason: Protocol Last Admin: 08/07/17 22:46 Dose: Not Given Metoclopramide HCl (Reglan) 10 mg PO DAILY [facility] Ondansetron HCl (Zofran Inj) 4 mg IVP Q4 PRN PRN Reason: Nausea/Vomiting Last Admin: 08/07/17 14:05 Dose: 4 mg Pantoprazole Sodium (Protonix Inj) 40 mg IVP DAILY [facility] Last Admin: 08/07/17 10:12 Dose: Not Given - Labs Labs: 08/08/17 06:17 08/06/17 19:59 PT 13.1 SECONDS (9.7-12.2) H 08/07/17 15:27 INR 1.2 08/07/17 15:27 APTT 31 SECONDS (21-34) 08/07/17 15:27 - Constitutional Appears: Non-toxic, Unkempt - Head Exam Head Exam: ATRAUMATIC, NORMAL INSPECTION - Eye Exam Eye Exam: EOMI - ENT Exam ENT Exam: Mucous Membranes Moist - Respiratory Exam Respiratory Exam: Clear to Ausculation Bilateral, NORMAL BREATHING PATTERN. absent: Respiratory Distress - Cardiovascular Exam Cardiovascular Exam: REGULAR RHYTHM, +S1, +S2 - GI/Abdominal Exam GI & Abdominal Exam: Soft, Tenderness, Normal Bowel Sounds. absent: Distended, Firm, Guarding - Extremities Exam Extremities Exam: Normal Inspection - Back Exam Back Exam: NORMAL INSPECTION - Psychiatric Exam Psychiatric exam: Normal Affect, Normal Mood - Skin Skin Exam: Dry, Intact, Normal Color, Warm Assessment and Plan - Assessment and Plan (Free Text) Assessment: Sickle Cell Crisis benadryl 25mg IV q4hrs dilaudid 2mg IV q4hrs PICC line ordered 07/30 Dr. Pierce consulted Status Post Nail Avulsion with possible infectious complications Podiatry on board- Dr. Tilley ESRD Dr. Phillips consulted HD tomorrow - on holiday schedule HD normally on // Will follow up recommendations nephro-main 1 tablet PO daily Procrit Creatinine 7.4 (08/07) Nausea Reglan 10mg PO daily zofran 4mg IV q8hrs DM ISS- medium dose neurontin 300mg PO BID Poorly controlled sugars Continue POC monitoring hypoglycemia protocol Hepatitis Diagnosed on previous admission AST/ALT (08/06/17) HTN Patient is refusing BP meds Clonidine 0.3mg PO BID Nifedipine 60mg PO BID Hydralazine 25mg PO TID Prophylaxis heparin 5k SC q8hrs Protonix 40mg PO daily Zofran prn nausea Colace Case discussed with Dr. Sexton. Patient has been approved out outpatient Fentanyl path. Patient to see pain management outpatient. All management as per Dr. Sexton
[2017-08-08 08:10] LABS: ALB/GLOB RATIO 1.1 (1.0-2.1); BILIRUBIN,TOTAL 0.5 mg/dL (0.2-1.3); CALCIUM 7.1 mg/dl (8.6-10.4); POTASSIUM 4.6 mmol/L (3.6-5.2); TOTAL PROTEIN 6.8 g/dL (6.3-8.3)
[2017-08-08] MEDS: (Novolin R) Insulin Human Regular 100 units/ml vial SC SCH ×2 (08:23→12:23)
--- NOTE | 2017-08-08 13:44 | CP.PCM.PN ---
Subjective - Date & Time of Evaluation Date of Evaluation: 08/08/17 Time of Evaluation: 12:42 - Subjective Subjective: Podiatry Progress Note for Dr. Tilley 31 year old female patient 3 weeks s/p bilateral 3rd digit total nail avulsion and Left hallux partial nail avulsion was seen at bedside this morning. Patient is resting comfortably in bed with no distress. AAO x3. Patient states that Dr. Tilley stopped by this morning and changed dressing to bilateral feet. Patient denies of any pain to the left hallux, but admits pain to bilateral 3rd digit at the site of nail avulsions. Patient denies of any other pedal complains. She denies any n/v/f/c/sob/cp. Objective - Vital Signs/Intake and Output Vital Signs (last 24 hours): Temp Pulse Resp BP Pulse Ox 97.4 F L 70 18 179/83 H 100 08/08/17 08:07 08/08/17 08:07 08/08/17 08:07 08/08/17 08:07 08/08/17 08:07 Intake and Output: 08/08/17 08/08/17 06:59 18:59 Intake Total 20 Balance 20 - Medications Medications: Current Medications Clonidine HCl (Catapres) 0.3 mg PO BID [facility] Last Admin: 08/08/17 10:11 Dose: 0.3 mg Diphenhydramine HCl (Benadryl) 25 mg IVP Q4 PRN PRN Reason: Pain, moderate (4-7) Last Admin: 08/08/17 12:25 Dose: 25 mg Epoetin James (Procrit) 10,000 unit IV TTS [facility] Stop: 08/18/17 10:01 Last Admin: 08/07/17 17:31 Dose: 10,000 unit Folic Acid (Folic Acid) 1 mg PO DAILY [facility] Last Admin: 08/08/17 10:11 Dose: 1 mg Gabapentin (Neurontin) 300 mg PO BID [facility] Last Admin: 08/08/17 10:11 Dose: 300 mg Heparin Sodium (Porcine) (Heparin) 5,000 units SC Q12 [facility] Hydralazine HCl (Apresoline) 25 mg PO TID [facility] Last Admin: 08/08/17 13:33 Dose: 25 mg Hydromorphone HCl (Dilaudid) 2 mg IVP Q4 PRN PRN Reason: Pain, moderate (4-7) Last Admin: 08/08/17 12:24 Dose: 2 mg Insulin Human Regular (Novolin R) 0 unit SC ACHS [facility] PRN Reason: Protocol Last Admin: 08/08/17 12:23 Dose: 3 unit Metoclopramide HCl (Reglan) 10 mg PO DAILY [facility] Last Admin: 08/08/17 10:11 Dose: 10 mg Ondansetron HCl (Zofran Inj) 4 mg IVP Q4 PRN PRN Reason: Nausea/Vomiting Last Admin: 08/07/17 14:05 Dose: 4 mg Pantoprazole Sodium (Protonix Inj) 40 mg IVP DAILY [facility] Last Admin: 08/08/17 10:11 Dose: 40 mg - Labs Labs: 08/08/17 06:17 08/08/17 06:17 PT 13.1 SECONDS (9.7-12.2) H 08/07/17 15:27 INR 1.2 08/07/17 15:27 APTT 31 SECONDS (21-34) 08/07/17 15:27 - Constitutional Appears: Well, Non-toxic, No Acute Distress - Extremities Exam Additional comments: Bilateral lower extremity exam DERM: LEFT: Small open wound noted to Left 3rd digit distal aspect at the site of nail avulsion measuring 0.5cm x 0.2cm x 0.3cm with mild erythema around the site of nail avulsion. No Probe to bone. No drainage is noted. No mal odor is noted. No sign of acute infection is noted. RIGHT:No open wound is noted to the right 3rd digit. No drainage is noted. Mild erythema is noted to the right 3rd digit. No sign of acute infection is noted. No mal-odor is noted. Vasc: DP and PT pulses palpable 2/4 bilaterally, [employer] less than 3 seconds to all digits bilaterally, mild localized non-pitting edema noted to the 3rd digits bilaterally Ortho: tenderness noted to the left 3rd digit, less tenderness noted to the right 3rd digit and left hallux. Neuro: gross sensation intact, protective sensation diminished - Neurological Exam Neurological Exam: Alert, Awake, Oriented x3 - Psychiatric Exam Psychiatric exam: Normal Affect, Normal Mood - Skin Skin Exam: Normal Color, Warm Assessment and Plan - Assessment and Plan (Free Text) Assessment: 31 year old female patient 3 weeks s/p bilateral 3rd digit total nail avulsion and left great toe partial nail avulsion Plan: Patient examined and evaluated at bedside Discussed in detail with the attending Dr. Tilley Charts, labs, vitals reviewed -afebrile, WBC 6.2 Surgical incisions cleansed with peroxide and dressed with DSD Surgical site to be cleansed with peroxide and dressed with 4x4 and cling Q8H Podiatry will continue to follow patient in house
[2017-08-08] MEDS ORDERED: (Novolog) Insulin Aspart, Recombinant 100 u/ml 10 ml vial SC SCH (16:30)
--- NOTE | 2017-08-08 19:58 | CP.PCM.PN ---
Subjective - Date & Time of Evaluation Date of Evaluation: 08/08/17 Time of Evaluation: 11:00 - Subjective Subjective: clinically same Objective - Vital Signs/Intake and Output Vital Signs (last 24 hours): Temp Pulse Resp BP Pulse Ox 97.8 F 67 18 121/65 99 08/08/17 15:20 08/08/17 15:20 08/08/17 15:20 08/08/17 15:20 08/08/17 15:20 Intake and Output: 08/08/17 08/09/17 18:59 06:59 Intake Total 600 Balance 600 - Medications Medications: Current Medications Clonidine HCl (Catapres) 0.3 mg PO BID [facility] Last Admin: 08/08/17 17:56 Dose: 0.3 mg Diphenhydramine HCl (Benadryl) 25 mg IVP Q4 PRN PRN Reason: Pain, moderate (4-7) Last Admin: 08/08/17 16:22 Dose: 25 mg Epoetin James (Procrit) 10,000 unit IV TTS [facility] [place] Stop: 08/18/17 10:01 Last Admin: 08/07/17 17:31 Dose: 10,000 unit Folic Acid (Folic Acid) 1 mg PO DAILY [facility] [place] Last Admin: 08/08/17 10:11 Dose: 1 mg Gabapentin (Neurontin) 300 mg PO BID [facility] [place] Last Admin: 08/08/17 17:56 Dose: 300 mg Heparin Sodium (Porcine) (Heparin) 5,000 units SC Q12 [facility] [place] Hydralazine HCl (Apresoline) 25 mg PO TID [facility] [place] Last Admin: 08/08/17 17:56 Dose: 25 mg Hydromorphone HCl (Dilaudid) 2 mg IVP Q4 PRN PRN Reason: Pain, moderate (4-7) Last Admin: 08/08/17 16:23 Dose: 2 mg Insulin Aspart (Novolog) 8 unit SC AC [facility] [place] Last Admin: 08/08/17 17:56 Dose: 8 unit Insulin Aspart (Novolog) 0 unit SC ACHS [facility] [place] PRN Reason: Protocol Insulin Glargine (Lantus) 20 unit SC HS [facility] [place] Metoclopramide HCl (Reglan) 10 mg PO DAILY [facility] [place] Last Admin: 08/08/17 10:11 Dose: 10 mg Ondansetron HCl (Zofran Inj) 4 mg IVP Q4 PRN PRN Reason: Nausea/Vomiting Last Admin: 08/07/17 14:05 Dose: 4 mg Pantoprazole Sodium (Protonix Inj) 40 mg IVP DAILY [facility] Last Admin: 08/08/17 10:11 Dose: 40 mg - Labs Labs: 08/08/17 06:17 08/08/17 06:17 PT 13.1 SECONDS (9.7-12.2) H 08/07/17 15:27 INR 1.2 08/07/17 15:27 APTT 31 SECONDS (21-34) 08/07/17 15:27
--- NOTE | 2017-08-08 21:21 | CON ---
DATE: ENDOCRINOLOGY CONSULTATION LOCATION: Room 662. HISTORY OF PRESENT ILLNESS: This is a 31-year-old female with known history of uncontrolled type 1 insulin-dependent diabetes, presenting here with recurrent abdominal pain and supervening nausea, dyspepsia and vomiting and is now being referred for diabetic evaluation and management. PAST MEDICAL HISTORY: As mentioned above, history of type 1 insulin-dependent diabetes, on a combination of Levemir given as 12 units every 12 hours and Novolog given as 6 units t.i.d. before meals; history of hypertension and dyslipidemia; history of diabetic retinopathy; polyneuropathy and nephropathy with end-stage renal disease and dialysis dependence; history of severe diabetic gastroparesis with recurrent admissions for abdominal pain and intractable vomiting episodes; history of generalized anxiety and episodic depression. FAMILY HISTORY: Positive for hypertension and heart disease. SOCIAL HISTORY: The patient has supportive family. No known substance use. REVIEW OF SYSTEMS: As mentioned above. Admits to generalized body weakness with progressive bouts of dizziness and lightheadedness, worse on the day of admission. No chest pains or palpitations or PND. Her oral intake has been variable with nausea, dyspepsia and vague upper abdominal pains. Also admits to intractable vomiting episodes, worse on the day of admission. Admits to lower extremity painful paresthesias, especially nocturnally. PHYSICAL EXAMINATION: GENERAL: This is an average-built female, in no apparent distress. VITAL SIGNS: Blood pressure of 140/80; pulse of 70 beats per minute, regular; temperature 98; respirations 20. Height is 5 feet 2 inches. Weight is 140 pounds. HEENT: Head normocephalic. Eyes anicteric with pale conjunctivae. Funduscopy not possible at this time. Ears, nose, and throat otherwise normal. NECK: Supple. Thyroid gland is normal in size. No carotid bruits or any cervical adenopathy. CARDIOPULMONARY: Some adynamic precordium. S1, S2 is rapid and regular. LUNGS: Clear to auscultation. ABDOMEN: Flat, soft with positive bowel sounds. EXTREMITIES: No peripheral edema. Pulses are +2 bilaterally. LABORATORY DATA: The chemistry shows a BUN of 33, sodium 130, potassium 4.6, chloride 90, CO2 of 28, glucose 348 and creatinine 6.0. The glucose levels have ranged from 249 to 328 mg/dL. ASSESSMENT: This is a 31-year-old female with uncontrolled decompensated type 1 insulin-dependent diabetes, presenting here with intractable vomiting episodes and supervening diffuse abdominal pain, related possibly to underlying diabetic gastroparesis and is now being referred for diabetic evaluation and management. She also has diabetic microvascular complications of retinopathy, polyneuropathy and nephropathy with end-stage renal disease and dialysis dependent. PLAN OF MANAGEMENT: As discussed with the patient and staff, we will start her right away on a basal and bolus insulin regimen with NovoLog started as 8 units subcu t.i.d. before meals to start today. We will also modify the coverage scale to a low dose algorithm using NovoLog insulin to obviate hypoglycemia. We will also add basal insulin with Lantus to be given as 20 units subcu at bedtime daily to start tonight. We will titrate incrementally as indicated to optimize metabolic control. We will follow. Beatriz Basurto MD
[2017-08-08] MEDS: (Novolog) Insulin Aspart, Recombinant 100 u/ml 10 ml vial SC SCH (21:43)
[2017-08-08] MEDS ORDERED: (Lantus) Insulin Glargine, Recombinant SC SCH (22:00)
--- NOTE | 2017-08-08 22:59 | CP.PCM.CON ---
History of Present Illness - History of Present Illness History of Present Illness: SEEN ON RENAL F/U SEEN ON HD ALL PREVIOUS EMR REVIEWED Past Patient History - Infectious Disease Hx of Infectious Diseases: None - Tetanus Immunizations Tetanus Immunization: Unknown - Past Medical History & Family History Past Medical History?: Yes - Past Social History Smoking Status: Never Smoked - CARDIAC Hx Cardiac Disorders: Yes Hx Congestive Heart Failure: Yes Hx Hypercholesterolemia: Yes Hx Hypertension: Yes Hx Peripheral Edema: Yes - PULMONARY Hx Respiratory Disorders: Yes Hx Asthma: Yes Hx Bronchitis: Yes Hx Pneumonia: Yes Hx Sleep Apnea: Yes - NEUROLOGICAL Hx Neurological Disorder: Yes Hx Seizures: Yes - HEENT Hx HEENT Problems: Yes Hx Cataracts: Yes Hx Glaucoma: Yes - RENAL Hx Chronic Kidney Disease: Yes Hx Dialysis: Yes Type of Dialysis Access: MELCHOR shunt Date of Last Dialysis Treatment: 08/05/17 Hx Renal Failure: Yes - ENDOCRINE/METABOLIC Hx Endocrine Disorders: Yes Hx Hyperthyroidism: Yes Hx Hypothyroidism: Yes - HEMATOLOGICAL/ONCOLOGICAL Hx Blood Disorders: Yes Hx Anemia: Yes - INTEGUMENTARY Hx Dermatological Problems: Yes Other/Comment: DRY ITCHY SKIN ;multiple/generalized dark spots on skin. left toe blister - MUSCULOSKELETAL/RHEUMATOLOGICAL Hx Musculoskeletal Disorders: Yes Hx Falls: Yes - GASTROINTESTINAL Hx Gastrointestinal Disorders: Yes Hx Gall Bladder Disease: Yes (gallbladder removed) Hx Gastritis: Yes Hx Pancreatitis: Yes (chronic) - GENITOURINARY/GYNECOLOGICAL Hx Genitourinary Disorders: No - PSYCHIATRIC Hx Psychophysiologic Disorder: Yes Hx Anxiety: Yes Hx Substance Use: No - SURGICAL HISTORY Hx Surgeries: Yes Hx Cholecystectomy: Yes Hx Coronary Stent: Yes - ANESTHESIA Hx Anesthesia: Yes Hx Anesthesia Reactions: No Hx Malignant Hyperthermia: No Has any member of the family had a problem w/ anesthesia?: No Meds Allergies/Adverse Reactions: Allergies Allergy/AdvReac Type Severity Reaction Status Date / Time ketorolac tromethamine Allergy RASH Verified 07/27/17 13:38 [From Toradol] latex Allergy RASH Verified 07/27/17 13:38 morphine Allergy RASH Verified 07/27/17 13:38 tramadol Allergy RASH Verified 07/27/17 13:38 - Medications Medications: Current Medications Clonidine HCl (Catapres) 0.3 mg PO BID [facility] Last Admin: 08/08/17 17:56 Dose: 0.3 mg Diphenhydramine HCl (Benadryl) 25 mg IVP Q4 PRN PRN Reason: Pain, moderate (4-7) Last Admin: 08/08/17 20:29 Dose: 25 mg Epoetin James (Procrit) 10,000 unit IV TTS [facility] Stop: 08/18/17 10:01 Last Admin: 08/07/17 17:31 Dose: 10,000 unit Folic Acid (Folic Acid) 1 mg PO DAILY [facility] Last Admin: 08/08/17 10:11 Dose: 1 mg Gabapentin (Neurontin) 300 mg PO BID [facility] Last Admin: 08/08/17 17:56 Dose: 300 mg Heparin Sodium (Porcine) (Heparin) 5,000 units SC Q12 [facility] Hydralazine HCl (Apresoline) 25 mg PO TID [facility] Last Admin: 08/08/17 17:56 Dose: 25 mg Hydromorphone HCl (Dilaudid) 2 mg IVP Q4 PRN PRN Reason: Pain, moderate (4-7) Last Admin: 08/08/17 20:28 Dose: 2 mg Insulin Aspart (Novolog) 8 unit SC AC [facility] Last Admin: 08/08/17 17:56 Dose: 8 unit Insulin Aspart (Novolog) 0 unit SC ACHS [facility] PRN Reason: Protocol Last Admin: 08/08/17 21:43 Dose: Not Given Insulin Glargine (Lantus) 20 unit SC HS [facility] Last Admin: 08/08/17 22:00 Dose: 20 units Metoclopramide HCl (Reglan) 10 mg PO DAILY [facility] Last Admin: 08/08/17 10:11 Dose: 10 mg Ondansetron HCl (Zofran Inj) 4 mg IVP Q4 PRN PRN Reason: Nausea/Vomiting Last Admin: 08/07/17 14:05 Dose: 4 mg Pantoprazole Sodium (Protonix Inj) 40 mg IVP DAILY [facility] Last Admin: 08/08/17 10:11 Dose: 40 mg Results - Vital Signs Recent Vital Signs: Last Vital Signs Temp 97.8 F 08/08/17 15:20 Pulse 67 08/08/17 15:20 Resp 18 08/08/17 15:20 BP 121/65 08/08/17 15:20 Pulse Ox 99 08/08/17 15:20 - Labs Result Diagrams: 08/08/17 06:17 08/08/17 06:17 Labs: Laboratory Results - last 24 hr 08/08/17 08/08/17 08/08/17 06:11 06:17 06:17 WBC 6.2 RBC 2.88 L Hgb 9.0 L Hct 28.1 L MCV 97.4 MCH 31.2 H MCHC 32.0 L RDW 17.9 H Plt Count 293 MPV 7.9 Neut % (Auto) 60.9 Lymph % (Auto) 20.3 [place] % (Auto) 10.0 Eos % (Auto) 7.1 H Baso % (Auto) 1.7 Neut # 3.8 Lymph # 1.3 [place] # 0.6 Eos # 0.4 Baso # 0.1 Sodium 130 L Potassium 4.6 Chloride 90 L Carbon Dioxide 28 Anion Gap 16 BUN 33 H Creatinine 6.0 H Est GFR ( Amer) 10 Est GFR (Non-Af Amer) 8 POC Glucose (mg/dL) 328 H Random Glucose 348 H Calcium 7.1 L Total Bilirubin 0.5 AST 24 ALT 20 Alkaline Phosphatase 125 Total Protein 6.8 Albumin 3.6 Globulin 3.2 Albumin/Globulin Ratio 1.1 08/08/17 08/08/17 08/08/17 12:04 17:04 21:17 WBC RBC Hgb Hct MCV MCH MCHC RDW Plt Count MPV Neut % (Auto) Lymph % (Auto) [place] % (Auto) Eos % (Auto) Baso % (Auto) Neut # Lymph # [place] # Eos # Baso # Sodium Potassium Chloride Carbon Dioxide Anion Gap BUN Creatinine Est GFR ( Amer) Est GFR (Non-Af Amer) POC Glucose (mg/dL) 249 H 228 H 245 H Random Glucose Calcium Total Bilirubin AST ALT Alkaline Phosphatase Total Protein Albumin Globulin Albumin/Globulin Ratio Assessment & Plan - Assessment and Plan (Free Text) Assessment: ESRD ON HD M W F AND SAT ANEMIA OF CKD .. ON EPO MMP P : C/O CURRENT CARE C/O PRESENT MANAGEMENT - Date & Time Date: 07/14/17 Time: 16:00
[2017-08-09] MEDS: DiphenhydrAMINE 50 mg/ml Inj IVP PRN ×6 (00:39→23:03)
[2017-08-09 07:26] LABS: BASO # 0.1 K/uL (0.0-0.2); BASO % 1.4 % (0.0-2.0); EOS # 0.5 K/uL (0.0-0.7); EOS % 9.4 % (0.0-4.0); HEMATOCRIT 26.9 % (34.0-47.0); LYMPH # 1.7 K/uL (1.0-4.3); LYMPH % 30.5 % (20.0-40.0); MEAN CELL VOLUME 96.8 fL (81.0-99.0); MEAN CORPUSCULAR HEMOGLOBIN 32.1 pg (27.0-31.0); MEAN CORPUSCULAR HGB CONC 33.2 g/dL (33.0-37.0); MEAN PLATELET VOLUME 7.9 fL (7.2-11.7); MONO # 0.6 K/uL (0.0-0.8); NRBC % 0.1 % (0.0-2.0); RED CELL DISTRIBUTION WIDTH 16.9 % (11.5-14.5); WHITE BLOOD COUNT 5.5 K/uL (4.8-10.8)
[2017-08-09 07:55] LABS: ALB/GLOB RATIO 1.1 (1.0-2.1); BILIRUBIN,TOTAL 0.4 mg/dL (0.2-1.3); POTASSIUM 4.7 mmol/L (3.6-5.2); TOTAL PROTEIN 6.6 g/dL (6.3-8.3)
[2017-08-09 08:03] LABS: CALCIUM 6.3 mg/dl (8.6-10.4)
[2017-08-09 08:11] LABS: THYROID STIMULATING HORMONE 3.42 mIU/L (0.46-4.68)
[2017-08-09] MEDS: (Novolog) Insulin Aspart, Recombinant 100 u/ml 10 ml vial SC SCH ×7 (08:18→22:09)
--- NOTE | 2017-08-09 09:19 | CP.PCM.PN ---
Subjective - Date & Time of Evaluation Date of Evaluation: 08/09/17 Time of Evaluation: 09:17 - Subjective Subjective: Progress Note for Dr. Sexton's Service Pt seen and examined at bedside. Patient is refusing blood pressure medications and BP checks, stating that her BP is normal if she is not in pain. She is scheduled for dialysis today. She complains of abdominal pain but states that this is better than before. Objective - Vital Signs/Intake and Output Vital Signs (last 24 hours): Temp Pulse Resp BP Pulse Ox 97.3 F L 91 H 97 H 169/112 H 20 L 08/09/17 09:10 08/09/17 08:39 08/09/17 08:39 08/09/17 08:39 08/09/17 08:39 - Medications Medications: Current Medications Clonidine HCl (Catapres) 0.3 mg PO BID [facility] Last Admin: 08/08/17 17:56 Dose: 0.3 mg Diphenhydramine HCl (Benadryl) 25 mg IVP Q4 PRN PRN Reason: Pain, moderate (4-7) Last Admin: 08/09/17 06:36 Dose: 25 mg Epoetin James (Procrit) 10,000 unit IV TTS [facility] Stop: 08/18/17 10:01 Last Admin: 08/07/17 17:31 Dose: 10,000 unit Folic Acid (Folic Acid) 1 mg PO DAILY [facility] Last Admin: 08/08/17 10:11 Dose: 1 mg Gabapentin (Neurontin) 300 mg PO BID [facility] Last Admin: 08/08/17 17:56 Dose: 300 mg Heparin Sodium (Porcine) (Heparin) 5,000 units SC Q12 [facility] Hydralazine HCl (Apresoline) 25 mg PO TID [facility] Last Admin: 08/08/17 17:56 Dose: 25 mg Hydromorphone HCl (Dilaudid) 2 mg IVP Q4 PRN PRN Reason: Pain, moderate (4-7) Last Admin: 08/09/17 06:36 Dose: 2 mg Insulin Aspart (Novolog) 0 unit SC ACHS [facility] PRN Reason: Protocol Last Admin: 08/09/17 08:18 Dose: Not Given Insulin Aspart (Novolog) 10 unit SC AC [facility] Last Admin: 08/09/17 08:28 Dose: 10 unit Insulin Glargine (Lantus) 20 unit SC HS [facility] Last Admin: 08/08/17 22:00 Dose: 20 units Metoclopramide HCl (Reglan) 10 mg PO DAILY [facility] Last Admin: 08/08/17 10:11 Dose: 10 mg Ondansetron HCl (Zofran Inj) 4 mg IVP Q4 PRN PRN Reason: Nausea/Vomiting Last Admin: 08/07/17 14:05 Dose: 4 mg Pantoprazole Sodium (Protonix Inj) 40 mg IVP DAILY [facility] Last Admin: 08/08/17 10:11 Dose: 40 mg - Labs Labs: 08/09/17 07:10 08/09/17 07:10 PT 13.1 SECONDS (9.7-12.2) H 08/07/17 15:27 INR 1.2 08/07/17 15:27 APTT 31 SECONDS (21-34) 08/07/17 15:27 - Constitutional Appears: No Acute Distress - Head Exam Head Exam: ATRAUMATIC, NORMOCEPHALIC - Eye Exam Eye Exam: EOMI - ENT Exam ENT Exam: Mucous Membranes Moist - Respiratory Exam Respiratory Exam: Clear to Ausculation Bilateral, NORMAL BREATHING PATTERN - Cardiovascular Exam Cardiovascular Exam: REGULAR RHYTHM, +S1, +S2 - GI/Abdominal Exam GI & Abdominal Exam: Soft, Tenderness (mildly TTP), Normal Bowel Sounds. absent : Guarding - Neurological Exam Neurological Exam: Alert, Awake, Oriented x3 - Skin Skin Exam: Dry, Warm Assessment and Plan - Assessment and Plan (Free Text) Plan: Sickle Cell Crisis benadryl 25mg IV q4hrs dilaudid 2mg IV q4hrs PICC line ordered 07/30 Dr. Pierce consulted- recs appreciated no evidence of nutritional deficiency anemia of chronic kidney disease on EPO per renal Status Post Nail Avulsion with possible infectious complications Podiatry on board- Dr. Tilley ESRD Dr. Phillips consulted HD today HD normally on // Will follow up recommendations nephro-main 1 tablet PO daily Procrit Creatinine 8.2 (08/09)- prior to HD Nausea Reglan 10mg PO daily zofran 4mg IV q8hrs DM ISS- medium dose neurontin 300mg PO BID Poorly controlled sugars Continue POC monitoring hypoglycemia protocol Hepatitis Diagnosed on previous admission AST/ALT / (08/06/17) HTN Patient is refusing BP meds and BP checks Clonidine 0.3mg PO BID Nifedipine 60mg PO BID Hydralazine 25mg PO TID Prophylaxis heparin 5k SC q8hrs Protonix 40mg PO daily Zofran prn nausea Colace Patient has been approved for outpatient Fentanyl path. Patient to see pain management outpatient. Case discussed with Dr. Sexton. All management as per Dr. Sextno
--- NOTE | 2017-08-09 09:40 | CON ---
DATE: Consultation of a patient, Nannette Collins, at the request of Dr. Sexton. HISTORY OF PRESENT ILLNESS: This is a 31-year-old black female with history of longstanding end-stage diabetes, on renal dialysis, had excision of mycotic nails on her third digits bilaterally and a partial nail and matrixectomy of the hallux approximately 2 weeks ago. At that time, she developed some cellulitis and drainage for which IV antibiotic protocol was initiated by Dr. Pinto. Today, we see her alert at bedside, oriented x3. Manipulation of said digits revealed no significant drainage. There is still, however, some moderate cellulitis about the third digits. At this time, the area was cleansed with peroxide and expressed to the patient the need for q. 8 hours peroxide irrigations to the said toes. No surgical intervention required at this time and again IV post dialysis antibiotics to be administered as per Dr. Pinto. Alexei Cardenas DPM
[2017-08-09] MEDS ORDERED: Dextrose 50% VIAL Inj (50 ml) IV ONE (13:39)
--- NOTE | 2017-08-09 13:39 | CP.PCM.PN ---
Subjective - Date & Time of Evaluation Date of Evaluation: 08/09/17 Time of Evaluation: 12:36 - Subjective Subjective: Podiatry Progress Note for Dr. Tilley 31 year old female patient 22 days s/p bilateral 3rd digit total nail avulsion and Left hallux partial nail avulsion was seen at bedside this morning. Patient is resting comfortably in bed. AAO x3. NAD. Patient denies of any pain to right 3rd digit, but admits to mild pain to left 3rd digit. Patient denies of any other pedal complains. She denies any n/v/f/c/sob/cp. Objective - Vital Signs/Intake and Output Vital Signs (last 24 hours): Temp Pulse Resp BP Pulse Ox 97.3 F L 79 20 169/112 H 97 08/09/17 09:10 08/09/17 12:00 08/09/17 08:39 08/09/17 08:39 08/09/17 08:39 - Medications Medications: Current Medications Clonidine HCl (Catapres) 0.3 mg PO BID [facility] Last Admin: 08/09/17 09:28 Dose: 0.3 mg Diphenhydramine HCl (Benadryl) 25 mg IVP Q4 PRN PRN Reason: Pain, moderate (4-7) Last Admin: 08/09/17 10:40 Dose: 25 mg Epoetin James (Procrit) 10,000 unit IV TTS [facility] Stop: 08/18/17 10:01 Last Admin: 08/07/17 17:31 Dose: 10,000 unit Folic Acid (Folic Acid) 1 mg PO DAILY [facility] Last Admin: 08/09/17 09:28 Dose: 1 mg Gabapentin (Neurontin) 300 mg PO BID [facility] Last Admin: 08/09/17 09:38 Dose: 300 mg Heparin Sodium (Porcine) (Heparin) 5,000 units SC Q12 [facility] Hydralazine HCl (Apresoline) 25 mg PO TID [facility] Last Admin: 08/09/17 09:28 Dose: 25 mg Hydromorphone HCl (Dilaudid) 2 mg IVP Q4 PRN PRN Reason: Pain, moderate (4-7) Last Admin: 08/09/17 10:42 Dose: 2 mg Insulin Aspart (Novolog) 0 unit SC [facility] PRN Reason: Protocol Last Admin: 08/09/17 11:34 Dose: Not Given Insulin Aspart (Novolog) 10 unit SC AC [facility] Last Admin: 08/09/17 12:08 Dose: 10 unit Insulin Glargine (Lantus) 20 unit SC HS [facility] Last Admin: 08/08/17 22:00 Dose: 20 units Metoclopramide HCl (Reglan) 10 mg PO DAILY [facility] Last Admin: 08/09/17 09:28 Dose: 10 mg Ondansetron HCl (Zofran Inj) 4 mg IVP Q4 PRN PRN Reason: Nausea/Vomiting Last Admin: 08/07/17 14:05 Dose: 4 mg Pantoprazole Sodium (Protonix Inj) 40 mg IVP DAILY [facility] Last Admin: 08/09/17 09:29 Dose: 40 mg - Labs Labs: 08/09/17 07:10 08/09/17 07:10 PT 13.1 SECONDS (9.7-12.2) H 08/07/17 15:27 INR 1.2 08/07/17 15:27 APTT 31 SECONDS (21-34) 08/07/17 15:27 - Constitutional Appears: Well, Non-toxic, No Acute Distress - Head Exam Head Exam: ATRAUMATIC - Extremities Exam Additional comments: Bilateral lower extremity exam DERM: LEFT: Small open wound noted to Left 3rd digit distal aspect at the site of nail avulsion measuring 0.3cm x 0.3cm x 0.2cm with mild erythema around the site of nail avulsion. No Probe to bone. No drainage is noted. No mal odor is noted. No sign of acute infection is noted. RIGHT:No open wound is noted to the right 3rd digit. No drainage is noted. Mild erythema is noted to the right 3rd digit. No sign of acute infection is noted. No mal-odor is noted. 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 Neuro: gross sensation intact, protective sensation diminished - Neurological Exam Neurological Exam: Alert, Awake, Oriented x3 - Psychiatric Exam Psychiatric exam: Normal Affect, Normal Mood - Skin Skin Exam: Normal Color, Warm Assessment and Plan - Assessment and Plan (Free Text) Assessment: 31 year old female patient 22 days s/p bilateral 3rd digit total nail avulsion and left great toe partial nail avulsion -wound to bilateral 3rd digits improving in terms of size, erythema and edema Plan: Patient examined and evaluated at bedside Discussed in detail with the attending Dr. Tilley Charts, labs, vitals reviewed -afebrile, WBC 5.5 Surgical incisions cleansed with peroxide and dressed with DSD Surgical site to be cleansed with peroxide and dressed with 4x4 and cling Q8H Podiatry will continue to follow patient in house
[2017-08-09] MEDS ORDERED: Dextrose 50% SYRINGE Inj (50 ml) IV PRN (14:13)
[2017-08-09] MEDS ORDERED: Glucagon Recombinant 1 mg Inj IM PRN (14:13)
--- NOTE | 2017-08-09 14:48 | CP.PCM.PN ---
Subjective - Date & Time of Evaluation Date of Evaluation: 08/09/17 Time of Evaluation: 14:00 - Subjective Subjective: No complaints. Objective - Vital Signs/Intake and Output Vital Signs (last 24 hours): Temp Pulse Resp BP Pulse Ox 97.2 F L 78 18 145/72 99 08/09/17 14:10 08/09/17 14:10 08/09/17 14:10 08/09/17 14:10 08/09/17 14:10 - Medications Medications: Current Medications Clonidine HCl (Catapres) 0.3 mg PO BID [facility] Last Admin: 08/09/17 09:28 Dose: 0.3 mg Dextrose (Dextrose 50% Inj) 0 ml IV STAT PRN; Protocol PRN Reason: Hypoglycemia Protocol Dextrose (Glutose 15) 0 gm PO ONCE PRN; Protocol PRN Reason: Hypoglycemia Protocol Diphenhydramine HCl (Benadryl) 25 mg IVP Q4 PRN PRN Reason: Pain, moderate (4-7) Last Admin: 08/09/17 10:40 Dose: 25 mg Epoetin Jaems (Procrit) 10,000 unit IV TTS [facility] Stop: 08/18/17 10:01 Last Admin: 08/07/17 17:31 Dose: 10,000 unit Folic Acid (Folic Acid) 1 mg PO DAILY [facility] Last Admin: 08/09/17 09:28 Dose: 1 mg Gabapentin (Neurontin) 300 mg PO BID [facility] Last Admin: 08/09/17 09:38 Dose: 300 mg Glucagon (Glucagen Diagnostic Kit) 0 mg IM STAT PRN; Protocol PRN Reason: Hypoglycemia Protocol Heparin Sodium (Porcine) (Heparin) 5,000 units SC Q12 [facility] Hydralazine HCl (Apresoline) 25 mg PO TID [facility] Last Admin: 08/09/17 14:24 Dose: Not Given Hydromorphone HCl (Dilaudid) 2 mg IVP Q4 PRN PRN Reason: Pain, moderate (4-7) Last Admin: 08/09/17 10:42 Dose: 2 mg Dextrose (Dextrose 5% In Water 1000 Ml) 1,000 mls @ 0 mls/hr IV .Q0M PRN; Protocol; Per Protocol PRN Reason: Hypoglycemia Protocol Insulin Aspart (Novolog) 0 unit SC ACHS [facility] PRN Reason: Protocol Last Admin: 08/09/17 11:34 Dose: Not Given Insulin Aspart (Novolog) 10 unit SC AC [facility] Last Admin: 08/09/17 12:08 Dose: 10 unit Insulin Glargine (Lantus) 20 unit SC HS [facility] Last Admin: 08/08/17 22:00 Dose: 20 units Metoclopramide HCl (Reglan) 10 mg PO DAILY [facility] Last Admin: 08/09/17 09:28 Dose: 10 mg Ondansetron HCl (Zofran Inj) 4 mg IVP Q4 PRN PRN Reason: Nausea/Vomiting Last Admin: 08/07/17 14:05 Dose: 4 mg Pantoprazole Sodium (Protonix Inj) 40 mg IVP DAILY [facility] Last Admin: 08/09/17 09:29 Dose: 40 mg - Labs Labs: 08/09/17 07:10 08/09/17 07:10 PT 13.1 SECONDS (9.7-12.2) H 08/07/17 15:27 INR 1.2 08/07/17 15:27 APTT 31 SECONDS (21-34) 08/07/17 15:27 - Head Exam Head Exam: ATRAUMATIC - Eye Exam Eye Exam: Normal appearance - ENT Exam ENT Exam: Mucous Membranes Dry - Respiratory Exam Respiratory Exam: NORMAL BREATHING PATTERN - Cardiovascular Exam Cardiovascular Exam: +S1, +S2 - GI/Abdominal Exam GI & Abdominal Exam: Normal Bowel Sounds Assessment and Plan (1) Anemia Assessment & Plan: anemia of chronic kidney disease on EPO per renal Status: Acute
--- NOTE | 2017-08-09 14:48 | CP.PCM.PN ---
Subjective - Date & Time of Evaluation Date of Evaluation: 08/08/17 Time of Evaluation: 14:00 - Subjective Subjective: Feeling better Objective - Vital Signs/Intake and Output Vital Signs (last 24 hours): Temp Pulse Resp BP Pulse Ox 97.2 F L 78 18 145/72 99 08/09/17 14:10 08/09/17 14:10 08/09/17 14:10 08/09/17 14:10 08/09/17 14:10 - Medications Medications: Current Medications Clonidine HCl (Catapres) 0.3 mg PO BID [facility] Last Admin: 08/09/17 09:28 Dose: 0.3 mg Dextrose (Dextrose 50% Inj) 0 ml IV STAT PRN; Protocol PRN Reason: Hypoglycemia Protocol Dextrose (Glutose 15) 0 gm PO ONCE PRN; Protocol PRN Reason: Hypoglycemia Protocol Diphenhydramine HCl (Benadryl) 25 mg IVP Q4 PRN PRN Reason: Pain, moderate (4-7) Last Admin: 08/09/17 10:40 Dose: 25 mg Epoetin James (Procrit) 10,000 unit IV TTS [facility] Stop: 08/18/17 10:01 Last Admin: 08/07/17 17:31 Dose: 10,000 unit Folic Acid (Folic Acid) 1 mg PO DAILY [facility] Last Admin: 08/09/17 09:28 Dose: 1 mg Gabapentin (Neurontin) 300 mg PO BID [facility] Last Admin: 08/09/17 09:38 Dose: 300 mg Glucagon (Glucagen Diagnostic Kit) 0 mg IM STAT PRN; Protocol PRN Reason: Hypoglycemia Protocol Heparin Sodium (Porcine) (Heparin) 5,000 units SC Q12 [facility] Hydralazine HCl (Apresoline) 25 mg PO TID [facility] Last Admin: 08/09/17 14:24 Dose: Not Given Hydromorphone HCl (Dilaudid) 2 mg IVP Q4 PRN PRN Reason: Pain, moderate (4-7) Last Admin: 08/09/17 10:42 Dose: 2 mg Dextrose (Dextrose 5% In Water 1000 Ml) 1,000 mls @ 0 mls/hr IV .Q0M PRN; Protocol; Per Protocol PRN Reason: Hypoglycemia Protocol Insulin Aspart (Novolog) 0 unit SC ACHS [facility] PRN Reason: Protocol Last Admin: 08/09/17 11:34 Dose: Not Given Insulin Aspart (Novolog) 10 unit SC AC [facility] Last Admin: 08/09/17 12:08 Dose: 10 unit Insulin Glargine (Lantus) 20 unit SC HS [facility] Last Admin: 08/08/17 22:00 Dose: 20 units Metoclopramide HCl (Reglan) 10 mg PO DAILY [facility] Last Admin: 08/09/17 09:28 Dose: 10 mg Ondansetron HCl (Zofran Inj) 4 mg IVP Q4 PRN PRN Reason: Nausea/Vomiting Last Admin: 08/07/17 14:05 Dose: 4 mg Pantoprazole Sodium (Protonix Inj) 40 mg IVP DAILY [facility] Last Admin: 08/09/17 09:29 Dose: 40 mg - Labs Labs: 08/09/17 07:10 08/09/17 07:10 PT 13.1 SECONDS (9.7-12.2) H 08/07/17 15:27 INR 1.2 08/07/17 15:27 APTT 31 SECONDS (21-34) 08/07/17 15:27 - Head Exam Head Exam: ATRAUMATIC - Eye Exam Eye Exam: Normal appearance - ENT Exam ENT Exam: Mucous Membranes Dry - Respiratory Exam Respiratory Exam: NORMAL BREATHING PATTERN - Cardiovascular Exam Cardiovascular Exam: +S1, +S2 - GI/Abdominal Exam GI & Abdominal Exam: Normal Bowel Sounds Assessment and Plan (1) Anemia Assessment & Plan: anemia of chronic kidney disease EPO per renal Status: Acute
[2017-08-09] MEDS: Epoetin Alfa 10,000 unit/ml Dialysis IV SCH (15:19)
[2017-08-09] MEDS ORDERED: DiphenhydrAMINE 50 mg/ml Inj IVP SCH (16:00)
[2017-08-09] MEDS ORDERED: DiphenhydrAMINE 50 mg/ml Inj IVP ONE (16:07)
--- NOTE | 2017-08-09 17:34 | CP.PCM.PN ---
Subjective - Date & Time of Evaluation Date of Evaluation: 08/09/17 Time of Evaluation: 11:00 - Subjective Subjective: clinically same Objective - Vital Signs/Intake and Output Vital Signs (last 24 hours): Temp Pulse Resp BP Pulse Ox 97.3 F L 89 18 172/97 H 100 08/09/17 14:35 08/09/17 14:58 08/09/17 14:35 08/09/17 17:05 08/09/17 14:35 - Medications Medications: Current Medications Clonidine HCl (Catapres) 0.3 mg PO BID [facility] Last Admin: 08/09/17 17:10 Dose: 0.3 mg Dextrose (Dextrose 50% Inj) 0 ml IV STAT PRN; Protocol PRN Reason: Hypoglycemia Protocol Dextrose (Glutose 15) 0 gm PO ONCE PRN; Protocol PRN Reason: Hypoglycemia Protocol Diphenhydramine HCl (Benadryl) 25 mg IVP Q4 PRN PRN Reason: Pain, moderate (4-7) Last Admin: 08/09/17 14:59 Dose: 25 mg Epoetin James (Procrit) 10,000 unit IV TTS [facility] Stop: 08/18/17 10:01 Last Admin: 08/09/17 15:19 Dose: 10,000 unit Folic Acid (Folic Acid) 1 mg PO DAILY [facility] Last Admin: 08/09/17 09:28 Dose: 1 mg Gabapentin (Neurontin) 300 mg PO BID [facility] Last Admin: 08/09/17 09:38 Dose: 300 mg Glucagon (Glucagen Diagnostic Kit) 0 mg IM STAT PRN; Protocol PRN Reason: Hypoglycemia Protocol Heparin Sodium (Porcine) (Heparin) 5,000 units SC Q12 [facility] Hydralazine HCl (Apresoline) 25 mg PO TID [facility] Last Admin: 08/09/17 17:10 Dose: 25 mg Hydromorphone HCl (Dilaudid) 2 mg IVP Q4 PRN PRN Reason: Pain, moderate (4-7) Last Admin: 08/09/17 14:59 Dose: 2 mg Dextrose (Dextrose 5% In Water 1000 Ml) 1,000 mls @ 0 mls/hr IV .Q0M PRN; Protocol; Per Protocol PRN Reason: Hypoglycemia Protocol Insulin Aspart (Novolog) 0 unit SC ACHS [facility] PRN Reason: Protocol Last Admin: 12/28/17 11:34 Dose: Not Given Insulin Aspart (Novolog) 6 unit SC AC [facility] Insulin Glargine (Lantus) 16 unit SC HS [facility] Metoclopramide HCl (Reglan) 10 mg PO DAILY [facility] Last Admin: 08/09/17 09:28 Dose: 10 mg Ondansetron HCl (Zofran Inj) 4 mg IVP Q4 PRN PRN Reason: Nausea/Vomiting Last Admin: 08/07/17 14:05 Dose: 4 mg Pantoprazole Sodium (Protonix Inj) 40 mg IVP DAILY [facility] Last Admin: 08/09/17 09:29 Dose: 40 mg - Labs Labs: 08/09/17 07:10 08/09/17 07:10 PT 13.1 SECONDS (9.7-12.2) H 08/07/17 15:27 INR 1.2 08/07/17 15:27 APTT 31 SECONDS (21-34) 08/07/17 15:27
--- NOTE | 2017-08-09 17:46 | CP.PCM.PN ---
Subjective - Date & Time of Evaluation Date of Evaluation: 08/09/17 Time of Evaluation: 15:00 - Subjective Subjective: SEEN ON RENAL F/U SEEN ON HD FEELS IMPROVED ALL PREVIOUS EMR REVIEWED Objective - Vital Signs/Intake and Output Vital Signs (last 24 hours): Temp Pulse Resp BP Pulse Ox 97.3 F L 89 18 172/97 H 100 08/09/17 14:35 08/09/17 14:58 08/09/17 14:35 08/09/17 17:05 08/09/17 14:35 - Medications Medications: Current Medications Clonidine HCl (Catapres) 0.3 mg PO BID [facility] Last Admin: 08/09/17 17:10 Dose: 0.3 mg Dextrose (Dextrose 50% Inj) 0 ml IV STAT PRN; Protocol PRN Reason: Hypoglycemia Protocol Dextrose (Glutose 15) 0 gm PO ONCE PRN; Protocol PRN Reason: Hypoglycemia Protocol Diphenhydramine HCl (Benadryl) 25 mg IVP Q4 PRN PRN Reason: Pain, moderate (4-7) Last Admin: 08/09/17 14:59 Dose: 25 mg Epoetin James (Procrit) 10,000 unit IV TTS [facility] Stop: 08/18/17 10:01 Last Admin: 08/09/17 15:19 Dose: 10,000 unit Folic Acid (Folic Acid) 1 mg PO DAILY [facility] Last Admin: 08/09/17 09:28 Dose: 1 mg Gabapentin (Neurontin) 300 mg PO BID [facility] Last Admin: 08/09/17 09:38 Dose: 300 mg Glucagon (Glucagen Diagnostic Kit) 0 mg IM STAT PRN; Protocol PRN Reason: Hypoglycemia Protocol Heparin Sodium (Porcine) (Heparin) 5,000 units SC Q12 [facility] Hydralazine HCl (Apresoline) 25 mg PO TID [facility] Last Admin: 08/09/17 17:10 Dose: 25 mg Hydromorphone HCl (Dilaudid) 2 mg IVP Q4 PRN PRN Reason: Pain, moderate (4-7) Last Admin: 08/09/17 14:59 Dose: 2 mg Dextrose (Dextrose 5% In Water 1000 Ml) 1,000 mls @ 0 mls/hr IV .Q0M PRN; Protocol; Per Protocol PRN Reason: Hypoglycemia Protocol Insulin Aspart (Novolog) 0 unit SC ACHS [facility] PRN Reason: Protocol Last Admin: 08/09/17 11:34 Dose: Not Given Insulin Aspart (Novolog) 6 unit SC AC [facility] Insulin Glargine (Lantus) 16 unit SC HS [facility] Metoclopramide HCl (Reglan) 10 mg PO DAILY [facility] Last Admin: 08/09/17 09:28 Dose: 10 mg Ondansetron HCl (Zofran Inj) 4 mg IVP Q4 PRN PRN Reason: Nausea/Vomiting Last Admin: 08/07/17 14:05 Dose: 4 mg Pantoprazole Sodium (Protonix Inj) 40 mg IVP DAILY [facility] Last Admin: 08/09/17 09:29 Dose: 40 mg - Labs Labs: 08/09/17 07:10 08/09/17 07:10 PT 13.1 SECONDS (9.7-12.2) H 08/07/17 15:27 INR 1.2 08/07/17 15:27 APTT 31 SECONDS (21-34) 08/07/17 15:27 Assessment and Plan - Assessment and Plan (Free Text) Assessment: ESRD ON HD M W F .. TO E C/O ANEMIA OF CKD .. H/H STABLE .. ON EPO MMP P : C/O SUPPORTIVE MANAGEMENT C/O PRESENT CARE
[2017-08-09] MEDS ORDERED: (Lantus) Insulin Glargine, Recombinant SC SCH (22:00)
[2017-08-10] MEDS ORDERED: DiphenhydrAMINE 50 mg/ml Inj IVP STA ×2 (01:13→17:02)
[2017-08-10] MEDS: DiphenhydrAMINE 50 mg/ml Inj IVP PRN ×5 (03:05→19:09)
--- NOTE | 2017-08-10 07:26 | PN ---
DATE: ENDOCRINOLOGY FOLLOWUP NOTE LOCATION: Room 662. SUBJECTIVE: This is a 31-year-old female with recent uncontrolled type 1 insulin-dependent diabetes, now being followed closely for metabolic management. Her glycemic levels are fluctuating, but improved and the latest glucose levels today have ranged from 117 to 207 mg/dL. She developed, however, a brief bout of symptomatic hypoglycemia by midday today, apparently after lunch despite a good oral intake after a meal tray for lunch was given. Her glucose levels dropped to 36 mg/dL as noted. Her hemoglobin A1c is 7.8% and her latest chemistry showed a BUN of 57, sodium 127, potassium 4.7, chloride 90, CO2 of 27, glucose 259 and creatinine 8.2. So at this time we will modify once again her basal and bolus insulin regimen and lower the Lantus to 16 units subcu at bedtime daily as ordered. We will also lower the NovoLog to 6 units subcu t.i.d. before meals as given. We will modify the coverage scale to obviate hypoglycemia and detailed ordered have been given. We will follow and advice accordingly. Beatriz Basurto MD
--- NOTE | 2017-08-10 07:38 | CP.PCM.PN ---
Subjective - Date & Time of Evaluation Date of Evaluation: 08/10/17 Time of Evaluation: 08:00 - Subjective Subjective: Progress Note for Dr. Sexton's Service Pt seen and examined at bedside. Patient states she is in pain all over her body and especially at the side where she fell on her ribs weeks ago. Patient accepted her bp meds this morning. She states she is still concerned that she is having withdrawal from pain meds. She was asking if she has sickle cell disease. She states that she can't go home because she is worried she will come right back to the hospital due to pain. Objective - Vital Signs/Intake and Output Vital Signs (last 24 hours): Temp Pulse Resp BP Pulse Ox 97.7 F 96 H 18 177/94 H 100 08/09/17 17:35 08/10/17 04:07 08/09/17 17:35 08/09/17 17:35 08/09/17 17:35 Intake and Output: 08/10/17 08/10/17 06:59 18:59 Intake Total 60 Output Total 0 Balance 60 - Medications Medications: Current Medications Clonidine HCl (Catapres) 0.3 mg PO BID [facility] Last Admin: 08/09/17 17:10 Dose: 0.3 mg Dextrose (Dextrose 50% Inj) 0 ml IV STAT PRN; Protocol PRN Reason: Hypoglycemia Protocol Dextrose (Glutose 15) 0 gm PO ONCE PRN; Protocol PRN Reason: Hypoglycemia Protocol Diphenhydramine HCl (Benadryl) 25 mg IVP Q4 PRN PRN Reason: Pain, moderate (4-7) Last Admin: 08/10/17 07:13 Dose: 25 mg Epoetin James (Procrit) 10,000 unit IV TTS [facility] Stop: 08/18/17 10:01 Last Admin: 08/09/17 15:19 Dose: 10,000 unit Folic Acid (Folic Acid) 1 mg PO DAILY [facility] Last Admin: 08/09/17 09:28 Dose: 1 mg Gabapentin (Neurontin) 300 mg PO BID [facility] Last Admin: 08/09/17 19:05 Dose: 300 mg Glucagon (Glucagen Diagnostic Kit) 0 mg IM STAT PRN; Protocol PRN Reason: Hypoglycemia Protocol Heparin Sodium (Porcine) (Heparin) 5,000 units SC Q12 [facility] Hydralazine HCl (Apresoline) 25 mg PO TID [facility] Last Admin: 08/09/17 17:10 Dose: 25 mg Hydromorphone HCl (Dilaudid) 2 mg IVP Q4 PRN PRN Reason: Pain, moderate (4-7) Last Admin: 08/10/17 07:13 Dose: 2 mg Dextrose (Dextrose 5% In Water 1000 Ml) 1,000 mls @ 0 mls/hr IV .Q0M PRN; Protocol; Per Protocol PRN Reason: Hypoglycemia Protocol Insulin Aspart (Novolog) 0 unit SC ACHS [facility] PRN Reason: Protocol Last Admin: 08/09/17 22:09 Dose: 4 unit Insulin Aspart (Novolog) 6 unit SC AC [facility] Last Admin: 08/09/17 18:00 Dose: Not Given Insulin Glargine (Lantus) 16 unit SC HS [facility] Last Admin: 08/09/17 23:07 Dose: 16 unit Metoclopramide HCl (Reglan) 10 mg PO DAILY [facility] Last Admin: 08/09/17 09:28 Dose: 10 mg Ondansetron HCl (Zofran Inj) 4 mg IVP Q4 PRN PRN Reason: Nausea/Vomiting Last Admin: 08/07/17 14:05 Dose: 4 mg Pantoprazole Sodium (Protonix Inj) 40 mg IVP DAILY [facility] Last Admin: 08/09/17 09:29 Dose: 40 mg - Labs Labs: 08/09/17 07:10 08/09/17 07:10 PT 13.1 SECONDS (9.7-12.2) H 08/07/17 15:27 INR 1.2 08/07/17 15:27 APTT 31 SECONDS (21-34) 08/07/17 15:27 - Constitutional Appears: Non-toxic, No Acute Distress, Chronically Ill - Head Exam Head Exam: ATRAUMATIC, NORMAL INSPECTION - ENT Exam ENT Exam: Mucous Membranes Moist - Respiratory Exam Respiratory Exam: Clear to Ausculation Bilateral, NORMAL BREATHING PATTERN. absent: Respiratory Distress - Cardiovascular Exam Cardiovascular Exam: REGULAR RHYTHM, +S1, +S2 - GI/Abdominal Exam GI & Abdominal Exam: Soft, Normal Bowel Sounds. absent: Distended, Firm, Guarding, Tenderness - Extremities Exam Extremities Exam: Normal Inspection Additional comments: bandages on feet c/d/i - Back Exam Back Exam: NORMAL INSPECTION - Neurological Exam Neurological Exam: Alert, Awake, CN II-XII Intact, Normal Gait, Oriented x3 - Psychiatric Exam Psychiatric exam: Normal Affect, Normal Mood - Skin Skin Exam: Dry, Intact, Normal Color, Warm Assessment and Plan - Assessment and Plan (Free Text) Assessment: DM with gastroparesis Dr. Basurto consulted, help appreciated Lantus 16 U SC HS Novolg 6 U SC HC ISS- medium dose neurontin 300mg PO BID Poorly controlled sugars Continue POC monitoring hypoglycemia protocol Reglan 10mg PO daily Intractable pain Patient states she has pain all over body, althogh appears to be very comfortable Patient with hx of noncomplinace and drug seeking habits Contine Dilaudid 2mg IVP Q4 Anemia of chronic diseas Dr. Pierce consulted- recs appreciated no evidence of nutritional deficiency anemia of chronic kidney disease on EPO per renal HTN Patient is refusing BP meds and BP checks Clonidine 0.3mg PO BID Hydralazine 25mg PO TID Status Post Nail Avulsion with possible infectious complications Podiatry on board- Dr. Tilley ESRD Dr. Phillips consulted HD today HD normally on // Will follow up recommendations nephro-main 1 tablet PO daily Procrit Creatinine 8.2 (08/09)- prior to HD Nausea Reglan 10mg PO daily zofran 4mg IV q8hrs Hepatitis Diagnosed on previous admission AST/ALT 23/22 (08/06/17) Prophylaxis heparin 5k SC q8hrs Protonix 40mg PO daily Zofran prn nausea Colace Patient has been approved for outpatient Fentanyl path. Patient to see pain management outpatient. Case discussed with Dr. Sexton. All management as per Dr. Sexton
[2017-08-10] MEDS: (Novolog) Insulin Aspart, Recombinant 100 u/ml 10 ml vial SC SCH ×4 (07:57→17:20)
[2017-08-10 08:04] LABS: BASO # 0.1 K/uL (0.0-0.2); BASO % 1.3 % (0.0-2.0); EOS # 0.5 K/uL (0.0-0.7); EOS % 8.9 % (0.0-4.0); HEMATOCRIT 26.8 % (34.0-47.0); LYMPH # 1.2 K/uL (1.0-4.3); LYMPH % 20.7 % (20.0-40.0); MEAN CELL VOLUME 96.7 fL (81.0-99.0); MEAN CORPUSCULAR HEMOGLOBIN 32.5 pg (27.0-31.0); MEAN CORPUSCULAR HGB CONC 33.6 g/dL (33.0-37.0); MEAN PLATELET VOLUME 7.8 fL (7.2-11.7); MONO # 0.5 K/uL (0.0-0.8); MONO % 8.2 % (0.0-10.0); NRBC % 0.1 % (0.0-2.0); RED CELL DISTRIBUTION WIDTH 16.8 % (11.5-14.5); WHITE BLOOD COUNT 5.9 K/uL (4.8-10.8)
[2017-08-10 08:51] LABS: BILIRUBIN,TOTAL 0.3 mg/dL (0.2-1.3); POTASSIUM 3.7 mmol/L (3.6-5.2); TOTAL PROTEIN 6.3 g/dL (6.3-8.3)
[2017-08-10 09:32] VITALS: RESP 20; TEMP 97.9
[2017-08-10] MEDS ORDERED: (Novolog) Insulin Aspart, Recombinant 100 u/ml 10 ml vial SC SCH ×2 (11:30→13:38)
--- NOTE | 2017-08-10 12:12 | CP.PCM.PN ---
Subjective - Date & Time of Evaluation Date of Evaluation: 08/10/17 Time of Evaluation: 12:10 - Subjective Subjective: Podiatry Progress Note for Dr. Tilley 31 year old female patient 23 days s/p bilateral 3rd digit total nail avulsion and Left hallux partial nail avulsion was seen at bedside today. AAO x3. NAD. Patient admits improvement in pain to bilateral feet 3rd digits. Patient denies of any other pedal complains. She denies any n/v/f/c/sob/cp. Objective - Vital Signs/Intake and Output Vital Signs (last 24 hours): Temp Pulse Resp BP Pulse Ox 97.9 F 65 20 120/70 97 08/10/17 09:30 08/10/17 09:30 08/10/17 09:30 08/10/17 09:30 08/10/17 09:30 Intake and Output: 08/10/17 08/10/17 06:59 18:59 Intake Total 60 Output Total 0 Balance 60 - Medications Medications: Current Medications Calcium Acetate (Phoslo) 667 mg PO BIDCC [facility] Clonidine HCl (Catapres) 0.3 mg PO BID [facility] Last Admin: 08/10/17 09:27 Dose: 0.3 mg Dextrose (Dextrose 50% Inj) 0 ml IV STAT PRN; Protocol PRN Reason: Hypoglycemia Protocol Dextrose (Glutose 15) 0 gm PO ONCE PRN; Protocol PRN Reason: Hypoglycemia Protocol Diphenhydramine HCl (Benadryl) 25 mg IVP Q4 PRN PRN Reason: Pain, moderate (4-7) Last Admin: 08/10/17 11:14 Dose: 25 mg Epoetin James (Procrit) 10,000 unit IV TTS [facility] Stop: 08/18/17 10:01 Last Admin: 08/09/17 15:19 Dose: 10,000 unit Folic Acid (Folic Acid) 1 mg PO DAILY [facility] Last Admin: 08/10/17 09:27 Dose: 1 mg Gabapentin (Neurontin) 300 mg PO BID [facility] Last Admin: 08/10/17 09:27 Dose: 300 mg Glucagon (Glucagen Diagnostic Kit) 0 mg IM STAT PRN; Protocol PRN Reason: Hypoglycemia Protocol Heparin Sodium (Porcine) (Heparin) 5,000 units SC Q12 [facility] Hydralazine HCl (Apresoline) 25 mg PO TID [facility] Last Admin: 08/10/17 09:27 Dose: 25 mg Hydromorphone HCl (Dilaudid) 2 mg IVP Q4 PRN PRN Reason: Pain, moderate (4-7) Last Admin: 08/10/17 11:15 Dose: 2 mg Dextrose (Dextrose 5% In Water 1000 Ml) 1,000 mls @ 0 mls/hr IV .Q0M PRN; Protocol; Per Protocol PRN Reason: Hypoglycemia Protocol Insulin Aspart (Novolog) 0 unit SC ACHS [facility] PRN Reason: Protocol Last Admin: 08/10/17 07:57 Dose: Not Given Insulin Aspart (Novolog) 10 unit SC AC [facility] Insulin Glargine (Lantus) 20 unit SC HS [facility] Metoclopramide HCl (Reglan) 10 mg PO DAILY [facility] Last Admin: 08/10/17 09:27 Dose: 10 mg Ondansetron HCl (Zofran Inj) 4 mg IVP Q4 PRN PRN Reason: Nausea/Vomiting Last Admin: 08/07/17 14:05 Dose: 4 mg Pantoprazole Sodium (Protonix Inj) 40 mg IVP DAILY [facility] Last Admin: 08/10/17 09:27 Dose: 40 mg - Labs Labs: 08/10/17 07:25 08/10/17 07:25 PT 13.1 SECONDS (9.7-12.2) H 08/07/17 15:27 INR 1.2 08/07/17 15:27 APTT 31 SECONDS (21-34) 08/07/17 15:27 - Constitutional Appears: Well, Non-toxic, No Acute Distress - Head Exam Head Exam: ATRAUMATIC - Extremities Exam Additional comments: Bilateral lower extremity exam DERM: LEFT: Small open wound noted to Left 3rd digit distal aspect at the site of nail avulsion measuring 0.3cm x 0.3cm x 0.2cm with mild erythema around the site of nail avulsion. No Probe to bone. No drainage is noted. No mal odor is noted. No sign of acute infection is noted. RIGHT:No open wound is noted to the right 3rd digit. No drainage is noted. Mild erythema is noted to the right 3rd digit. No sign of acute infection is noted. No mal-odor is noted. 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 Neuro: gross sensation intact, protective sensation diminished - Neurological Exam Neurological Exam: Alert, Awake, Oriented x3 - Psychiatric Exam Psychiatric exam: Normal Affect, Normal Mood - Skin Skin Exam: Normal Color, Warm Assessment and Plan - Assessment and Plan (Free Text) Assessment: 31 year old female patient 23 days s/p bilateral 3rd digit total nail avulsion and left great toe partial nail avulsion -wound to bilateral 3rd digits improving in terms of size, erythema and edema Plan: Patient examined and evaluated at bedside Discussed in detail with the attending Dr. Tilley Charts, labs, vitals reviewed -afebrile, WBC 5.9 Surgical incisions cleansed with peroxide and dressed with DSD Surgical site to be cleansed with peroxide and dressed with 4x4 and cling Q8H Podiatry will continue to follow patient in house
[2017-08-10] MEDS ORDERED: (Novolog) Insulin Aspart, Recombinant 100 u/ml 10 ml vial SC ONE ×2 (13:40→14:02)
[2017-08-10 16:41] VITALS: BP 170/94; PULSE 82; O2SAT 100
--- NOTE | 2017-08-10 18:43 | PN ---
DATE: ENDOCRINOLOGY FOLLOWUP NOTE LOCATION: Room 662. SUBJECTIVE: This is a 31-year-old female with recent uncontrolled type 1 insulin-dependent diabetes with extremes of glycemic fluctuations from hypoglycemia to hyperglycemic accelerations as noted thereof. Her glucose values are fluctuating as noted, and today's glucose levels have ranged from 273 to 328 mg/dL. The latest chemistry shows a BUN of 44, [id number], potassium 3.7, chloride 94, C02 of 26, glucose 232, and creatinine 6.2. However, yesterday at noon time, her blood sugar dipped to 37 mg/dL with associated neuroglycopenic and hyperadrenergic manifestations of the same. ASSESSMENT AND PLAN: So, at this time, we will modify once again her basal and bolus insulin regimen and increase the Lantus to 20 units subcu; a new batch of this is ordered. We will also increase the NovoLog given as prandial insulin at 10 units subcu t.i.d. before meals as given. We will titrate incrementally as indicated to optimize metabolic control. We will follow. Beatriz Basurto MD
--- NOTE | 2017-08-10 19:38 | CP.PCM.PN ---
Subjective - Date & Time of Evaluation Date of Evaluation: 08/10/17 Time of Evaluation: 11:20 - Subjective Subjective: clinically same Objective - Vital Signs/Intake and Output Vital Signs (last 24 hours): Temp Pulse Resp BP Pulse Ox 97.9 F 82 20 170/94 H 100 08/10/17 15:15 08/10/17 15:15 08/10/17 15:15 08/10/17 15:15 08/10/17 15:15 Intake and Output: 08/10/17 08/11/17 18:59 06:59 Intake Total 400 Balance 400 - Medications Medications: Current Medications [facility]lo) [facility] Last Admin: 08/10/17 17:15 Dose: 667 mg Clonidine HCl (Catapres) 0.3 mg PO BID [facility] Last Admin: 08/10/17 17:16 Dose: 0.3 mg Dextrose (Dextrose 50% Inj) 0 ml IV STAT PRN; Protocol PRN Reason: Hypoglycemia Protocol Dextrose (Glutose 15) 0 gm PO ONCE PRN; Protocol PRN Reason: Hypoglycemia Protocol Diphenhydramine HCl (Benadryl) 25 mg IVP Q4 PRN PRN Reason: Pain, moderate (4-7) Last Admin: 08/10/17 19:09 Dose: 25 mg Epoetin James (Procrit) 10,000 unit IV TTS [facility] Stop: 08/18/17 10:01 Last Admin: 08/09/17 15:19 Dose: 10,000 unit Fentanyl (Duragesic) 1 patch TD Q72H [facility] Last Admin: 08/10/17 14:26 Dose: 1 patch Folic Acid (Folic Acid) 1 mg PO DAILY [facility] Last Admin: 08/10/17 09:27 Dose: 1 mg Gabapentin (Neurontin) 300 mg PO BID [facility] Last Admin: 08/10/17 17:14 Dose: 300 mg Glucagon (Glucagen Diagnostic Kit) 0 mg IM STAT PRN; Protocol PRN Reason: Hypoglycemia Protocol Heparin Sodium (Porcine) (Heparin) 5,000 units SC Q12 [facility] Hydralazine HCl (Apresoline) 25 mg PO TID [facility] Last Admin: 08/10/17 17:16 Dose: 25 mg Hydromorphone HCl (Dilaudid) 2 mg IVP Q4 PRN PRN Reason: Pain, moderate (4-7) Last Admin: 08/10/17 19:09 Dose: 2 mg Dextrose (Dextrose 5% In Water 1000 Ml) 1,000 mls @ 0 mls/hr IV .Q0M PRN; Protocol; Per Protocol PRN Reason: Hypoglycemia Protocol Insulin Aspart (Novolog) 0 unit SC ACHS [facility] PRN Reason: Protocol Last Admin: 08/10/17 17:20 Dose: Not Given Insulin Aspart (Novolog) 6 unit SC AC [facility] Last Admin: 08/10/17 17:20 Dose: 6 unit Insulin Glargine (Lantus) 20 unit SC HS [facility] Metoclopramide HCl (Reglan) 10 mg PO DAILY [facility] Last Admin: 08/10/17 09:27 Dose: 10 mg Ondansetron HCl (Zofran Inj) 4 mg IVP Q4 PRN PRN Reason: Nausea/Vomiting Last Admin: 08/07/17 14:05 Dose: 4 mg Pantoprazole Sodium (Protonix Inj) 40 mg IVP DAILY [facility] Last Admin: 08/10/17 09:27 Dose: 40 mg - Labs Labs: 08/10/17 07:25 08/10/17 07:25 PT 13.1 SECONDS (9.7-12.2) H 08/07/17 15:27 INR 1.2 08/07/17 15:27 APTT 31 SECONDS (21-34) 08/07/17 15:27
[2017-08-10] MEDS ORDERED: (Lantus) Insulin Glargine, Recombinant SC SCH (22:00)
== END 2017-08-10 19:45 | disposition home or self-care (01) | DRG 395 ==
LOC: C.ER 16:57 → C.6T 20:52 → OBSVTOIN 08-08 15:24
PROVIDERS: ADMIT Internal Medicine Nephrology; ATTEND Internal Medicine Nephrology
PROC: 5A1D70Z Performance of Urinary Filtration, Intermittent, Less than 6 Hours Per Day (ICD-10-PCS; principal; 2017-08-09)
DX: D57.00 Hb-SS disease with crisis, unspecified (principal); I13.2 Hypertensive heart and chronic kidney disease with heart failure and with stage 5 chronic kidney disease, or end stage renal disease; E10.22 Type 1 diabetes mellitus with diabetic chronic kidney disease; E10.319 Type 1 diabetes mellitus with unspecified diabetic retinopathy without macular edema; E10.649 Type 1 diabetes mellitus with hypoglycemia without coma; E10.42 Type 1 diabetes mellitus with diabetic polyneuropathy; E10.43 Type 1 diabetes mellitus with diabetic autonomic (poly)neuropathy; I50.9 Heart failure, unspecified; N18.6 End stage renal disease; K31.84 Gastroparesis; E03.9 Hypothyroidism, unspecified; D63.1 Anemia in chronic kidney disease; E78.00 Pure hypercholesterolemia, unspecified; F41.1 Generalized anxiety disorder; Z99.2 Dependence on renal dialysis; Z95.5 Presence of coronary angioplasty implant and graft; Z91.19 Patient's noncompliance with other medical treatment and regimen; Z90.49 Acquired absence of other specified parts of digestive tract; Z87.442 Personal history of urinary calculi; Z87.11 Personal history of peptic ulcer disease; Z87.01 Personal history of pneumonia (recurrent); Z79.4 Long term (current) use of insulin; L03.032 Cellulitis of left toe; L03.031 Cellulitis of right toe; K86.1 Other chronic pancreatitis; J45.909 Unspecified asthma, uncomplicated

== ENCOUNTER 2017-08-16 09:49 | Emergency (ER) | payer MEDICAID ==
[2017-08-16 09:49] VITALS: BMI 25.6
[2017-08-16 09:54] VITALS: BP 214/127; PULSE 97; TEMP 98.4; O2SAT 100
--- NOTE | 2017-08-16 10:16 | C.PDOC ---
History Of Present Illness 31-YEAR-OLD FEMALE, PRESENTS TO THE EMERGENCY DEPARTMENT C/O RECURRING ABD PAIN , NV "JUST LIKE LAST TIME". NON COMPLIANT W BP MEDS. PT WELL KNOWN TO THIS ER, MULT RECENT ADMISSION FOR INTRACT PAIN AND DRUG SEEKING BEHAVIOR, UNCONTROLL HTN. PS LAST HD 08/15/16 EXAM NONTOXIC, UNCH FROM BASELINE HEENT MMM ANICTERIC GAIT WNL ABD REFUSING TO LAY IN STRETCHER FOR EXAM MDM PT IS AWARE OF DEPT PAIN POLICY. PT OFFERED PO PAIN MEDS ONLY, IM ANTIEMETIC. PT AGREES W MGMT PLAN Chief Complaint (Nursing): High Blood Pressure History Per: Patient History/Exam Limitations: no limitations Current Symptoms Are (Timing): Still Present Severity: Moderate Past Medical History Reviewed: Historical Data, Nursing Documentation, Vital Signs Vital Signs: Last Vital Signs Temp 98.4 F 08/16/17 09:53 Pulse 97 H 08/16/17 09:53 Resp 18 08/16/17 11:33 BP 214/127 H 08/16/17 09:53 Pulse Ox 100 08/16/17 11:40 - Medical History PMH: Anemia, Anxiety, Asthma, Bronchitis, CHF, Diabetes, Fractures (Sep 2012 L foot), Gastritis, Gastrointestinal Ulcer (gastroparesis), Gall Bladder Disease ( gallbladder removed), Hepatitis, HTN, Hypercholesterolemia, Hyperthyroidism, Hypothyroidism, Kidney Stones, Pancreatitis (chronic), Peripheral Edema, Pneumonia, End Stage Renal Disease, Chronic Kidney Disease, Seizures, Sleep Apnea, Chronic Pain Surgical History: Cholecystectomy, Coronary Stent - [facility] Procedures (08/08/17) ASSISTANCE WITH RESPIRATORY VENTILATION, 24-96 HRS, CPAP (11/27/16) CAUTERY TO STOP EPISTAX (03/22/14) CENTRAL VENOUS CATHETER PLACEMENT WITH GUIDANCE (11/06/14) DIALYSIS ARTERIOVENOSTOM (01/10/14) DRAINAGE OF RIGHT FOOT SKIN, EXTERNAL APPROACH (07/17/16) DRAINAGE OF RIGHT LOWER ARM SKIN, EXTERNAL APPROACH (05/25/16) ESOPHAGOGASTRODUODENOSCOPY [EGD] W/CLOSED BIOPSY (03/03/14) EXCISION OF LEFT TOE PHALANX, OPEN APPROACH (07/12/17) EXCISION OF STOMACH, ENDO, DIAGN (05/09/16) EXTIRPATE MATTER FROM R LOW ARM SUBCU/FASCIA, PERC (05/25/16) EXTRACTION OF RIGHT FOOT SKIN, EXTERNAL APPROACH (05/25/16) EXTRACTION OF TOE NAIL, EXTERNAL APPROACH (07/12/17) FLEXIBLE SIGMOIDOSCOPY (10/26/14) FLUOROSCOPY OF R JUGULAR VEIN USING L OSM CONTRAST, GUIDANCE (12/13/15) FLUOROSCOPY OF RIGHT SUBCLAVIAN VEIN, GUIDANCE (08/07/16) HEMODIALYSIS (04/05/15) INJECT INSULIN (12/23/12) INJECT/INFUSE ELECTROLYT (12/23/12) INJECT/INFUSE NEC (01/17/15) INSERT INFUSION DEV IN R INT JUGULAR VEIN, PERC (02/23/16) INSERTION OF INFUSION DEV INTO R BASILIC VEIN, PERC APPROACH (04/18/16) INSERTION OF INFUSION DEV INTO R BRACH VEIN, PERC APPROACH (02/19/17) INSERTION OF INFUSION DEV INTO R SUBCLAV VEIN, PERC APPROACH (08/29/16) INSERTION OF INFUSION DEV INTO SUP VENA CAVA, PERC APPROACH (07/30/17) INSERTION OF INFUSION DEVICE INTO R ATRIUM, PERC APPROACH (12/13/15) INSERTION OF VAD INTO CHEST SUBCU/FASCIA, OPEN APPROACH (12/13/15) MEASURE OF CARDIAC SAMPL & PRESSURE, L HEART, PERC APPROACH (10/09/16) OTHER ENDOSCOPY OF SM INTEST (08/25/14) PACKED CELL TRANSFUSION (10/26/14) PERFORMANCE OF URINARY FILTRATION, MULTIPLE (03/19/17) PERFORMANCE OF URINARY FILTRATION, SINGLE (11/27/16) PLAIN RADIOGRAPHY OF LEFT HEART USING OTHER CONTRAST (10/09/16) PLAIN RADIOGRAPHY OF MULT COR ART USING OTH CONTRAST (10/09/16) PLICATION OF VENA CAVA (03/22/14) POST NASAL PAC FOR EPIST (03/22/14) REMOVAL OF VAD FROM TRUNK SUBCU/FASCIA, OPEN APPROACH (02/23/16) MELVIN KENNY DIALYSIS SHUNT (03/03/14) THERAPEUTIC ERYTHROCYTAPHERESIS (10/26/14) TRANSFUSE NONAUT RED BLOOD CELLS IN PERIPH VEIN, PERC (02/19/17) ULTRASONOGRAPHY OF RIGHT AND LEFT HEART, TRANSESOPHAGEAL (02/19/17) ULTRASONOGRAPHY OF RIGHT SUBCLAVIAN VEIN, GUIDANCE (08/29/16) ULTRASONOGRAPHY OF RIGHT UPPER EXTREMITY VEINS, GUIDANCE (02/19/17) VACCINATION NEC (10/26/14) VENOUS CATHETERIZATION FOR RENAL DIALYSIS (03/03/14) Family History: States: No Known Family Hx - Social History Hx Tobacco Use: No Hx Alcohol Use: No Hx Substance Use: No - Immunization History Hx Tetanus Toxoid Vaccination: No Hx Influenza Vaccination: Yes (05/2017) Hx Pneumococcal Vaccination: Yes (2015) Review Of Systems Except As Marked, All Systems Reviewed And Found Negative. Constitutional: Negative for: Fever, Chills Cardiovascular: Negative for: Chest Pain, Palpitations Respiratory: Negative for: Shortness of Breath Gastrointestinal: Positive for: Nausea, Vomiting, Abdominal Pain. Negative for : Melena, Hematochezia Genitourinary: Negative for: Dysuria Musculoskeletal: Negative for: Neck Pain, Back Pain Neurological: Negative for: Weakness, Numbness, Headache, Dizziness Physical Exam - Physical Exam Appears: Non-toxic, No Acute Distress, Other (UNCH FROM BASELINE) Skin: Warm, Dry, No Rash Head: Atraumatic, Normacephalic Eye(s): bilateral: Normal Inspection, PERRL, EOMI, Other (ANICTERIC) Nose: Normal Oral Mucosa: Moist Lips: Normal Appearing Neck: Normal ROM Cardiovascular: Rhythm Regular, No Murmur Respiratory: Normal Breath Sounds, No Accessory Muscle Use Gastrointestinal/Abdominal: Other ( REFUSING TO LAY IN STRETCHER FOR EXAM) Extremity: Normal ROM Neurological/Psych: Oriented x3 Gait: Steady ED Course And Treatment O2 Sat by Pulse Oximetry: 100 Progress - Re-Evaluation Re-evaluation Note: 08/16/17 10:25 ADVISED BY BLOOD TESTER FOWL PT REFUSING CXR. 08/16/17 11:14 PT REFUSING ALL MEDS, REQUESTING IV PAIN MEDS ONLY. PT REFUSING ALL ER INTERVENTION. AWARE OF RISKS BENEFITS OF UNCONTROLLED HTN. NO ACTIVE VOMITING. PT ON CELL PHONE TEXTING AND TALKING W NO APPARENT DIFFICULTY. SPEAKING CLEARLY AND WITHOUT APPARENT DISTRESS. 08/16/17 11:[address] Edilia CARVALHO AWARE - Data Reviewed Data Reviewed: Old records Medical Decision Making Medical Decision Making: MDM PT IS AWARE OF DEPT PAIN POLICY. PT OFFERED PO PAIN MEDS ONLY, IM ANTIEMETIC. PT AGREES W MGMT PLAN Disposition Counseled Patient/Family Regarding: Studies Performed, Diagnosis, Need For Followup - Disposition Referrals: YOUR,PMD [Other] Disposition: HOME/ ROUTINE Disposition Time: 11:15 Condition: GOOD Additional Instructions: YOU HAVE BEEN OFFERED A FULL EVALUATION OF YOUR SYMPTOMS INCLUDING BLOOD TESTING AND CHEST XRAY. YOU HAVE BEEN OFFERED PAIN AND ANTI NAUSEA MEDICATIONS AND HAVE REFUSED. FOLLOW UP WITH YOUR PMD. Instructions: Chronic Pain (ED) Forms: [employer] (Indonesian) - Clinical Impression Clinical Impression: Chronic pain, Uncontrolled hypertension, ESRD (end stage renal disease) on dialysis - Scribe Statement The provider has reviewed the documentation as recorded by the Scribe (Rio Gonzalez) All medical record entries made by the Scribe were at my direction and personally dictated by me. I have reviewed the chart and agree that the record accurately reflects my personal performance of the history, physical exam, medical decision making, and the department course for this patient. I have also personally directed, reviewed, and agree with the discharge instructions and disposition.
[2017-08-16] MEDS ORDERED: DiphenhydrAMINE 50 mg/ml Inj IVP STA (10:18)
[2017-08-16 11:33] VITALS: RESP 18
== END 2017-08-16 11:32 | disposition home or self-care (01) ==
LOC: C.ER 09:49
DX: G89.29 Other chronic pain (principal); I12.0 Hypertensive chronic kidney disease with stage 5 chronic kidney disease or end stage renal disease; N18.6 End stage renal disease; Z99.2 Dependence on renal dialysis; Z91.14 Patient's other noncompliance with medication regimen

== ENCOUNTER 2017-08-16 16:59 | Inpatient (IN) | payer MEDICAID ==
[2017-08-16 17:17] VITALS: BMI 27.3
--- NOTE | 2017-08-16 17:47 | C.PDOC ---
History Of Present Illness Nannette Collins is a 31 year old female with a PMHx of sickle cell disease, gastroparesis and end stage renal disease (on dialysis), presenting to the ER for chronic abdominal pain. Associated with nausea and vomiting. Patient is well known to the ER. Last dialysis was yesterday. PMD: Dr. Edilia Sexton Time Seen by Provider: 08/16/17 17:29 Chief Complaint (Nursing): Abdominal Pain History Per: Patient History/Exam Limitations: no limitations Onset/Duration Of Symptoms: Persistent Current Symptoms Are (Timing): Still Present Past Medical History Reviewed: Historical Data, Nursing Documentation, Vital Signs Vital Signs: Last Vital Signs Temp 98.4 F 08/16/17 18:48 Pulse 90 08/16/17 18:48 Resp 20 08/16/17 18:48 BP 232/117 H 08/16/17 18:48 Pulse Ox 98 08/16/17 22:43 - Medical History PMH: Anemia, Anxiety, Asthma, Bronchitis, CHF, Diabetes, Fractures (Sep 2012 L foot), Gastritis, Gastrointestinal Ulcer (gastroparesis), Gall Bladder Disease ( gallbladder removed), Hepatitis, HTN, Hypercholesterolemia, Hyperthyroidism, Hypothyroidism, Kidney Stones, Pancreatitis (chronic), Peripheral Edema, Pneumonia, End Stage Renal Disease, Chronic Kidney Disease, Seizures, Sleep Apnea, Chronic Pain Surgical History: Cholecystectomy, Coronary Stent - [facility] Procedures (08/08/17) ASSISTANCE WITH RESPIRATORY VENTILATION, 24-96 HRS, CPAP (11/27/16) CAUTERY TO STOP EPISTAX (03/22/14) CENTRAL VENOUS CATHETER PLACEMENT WITH GUIDANCE (11/06/14) DIALYSIS ARTERIOVENOSTOM (01/10/14) DRAINAGE OF RIGHT FOOT SKIN, EXTERNAL APPROACH (07/17/16) DRAINAGE OF RIGHT LOWER ARM SKIN, EXTERNAL APPROACH (05/25/16) ESOPHAGOGASTRODUODENOSCOPY [EGD] W/CLOSED BIOPSY (03/03/14) EXCISION OF LEFT TOE PHALANX, OPEN APPROACH (07/12/17) EXCISION OF STOMACH, ENDO, DIAGN (05/09/16) EXTIRPATE MATTER FROM R LOW ARM SUBCU/FASCIA, PERC (05/25/16) EXTRACTION OF RIGHT FOOT SKIN, EXTERNAL APPROACH (05/25/16) EXTRACTION OF TOE NAIL, EXTERNAL APPROACH (07/12/17) FLEXIBLE SIGMOIDOSCOPY (10/26/14) FLUOROSCOPY OF R JUGULAR VEIN USING L OSM CONTRAST, GUIDANCE (12/13/15) FLUOROSCOPY OF RIGHT SUBCLAVIAN VEIN, GUIDANCE (08/07/16) HEMODIALYSIS (04/05/15) INJECT INSULIN (12/23/12) INJECT/INFUSE ELECTROLYT (12/23/12) INJECT/INFUSE NEC (01/17/15) INSERT INFUSION DEV IN R INT JUGULAR VEIN, PERC (02/23/16) INSERTION OF INFUSION DEV INTO R BASILIC VEIN, PERC APPROACH (04/18/16) INSERTION OF INFUSION DEV INTO R BRACH VEIN, PERC APPROACH (02/19/17) INSERTION OF INFUSION DEV INTO R SUBCLAV VEIN, PERC APPROACH (08/29/16) INSERTION OF INFUSION DEV INTO SUP VENA CAVA, PERC APPROACH (07/30/17) INSERTION OF INFUSION DEVICE INTO R ATRIUM, PERC APPROACH (12/13/15) INSERTION OF VAD INTO CHEST SUBCU/FASCIA, OPEN APPROACH (12/13/15) MEASURE OF CARDIAC SAMPL & PRESSURE, L HEART, PERC APPROACH (10/09/16) OTHER ENDOSCOPY OF SM INTEST (08/25/14) PACKED CELL TRANSFUSION (10/26/14) PERFORMANCE OF URINARY FILTRATION, MULTIPLE (03/19/17) PERFORMANCE OF URINARY FILTRATION, SINGLE (11/27/16) PLAIN RADIOGRAPHY OF LEFT HEART USING OTHER CONTRAST (10/09/16) PLAIN RADIOGRAPHY OF MULT COR ART USING OTH CONTRAST (10/09/16) PLICATION OF VENA CAVA (03/22/14) POST NASAL PAC FOR EPIST (03/22/14) REMOVAL OF VAD FROM TRUNK SUBCU/FASCIA, OPEN APPROACH (02/23/16) MELVIN KENNY DIALYSIS SHUNT (03/03/14) THERAPEUTIC ERYTHROCYTAPHERESIS (10/26/14) TRANSFUSE NONAUT RED BLOOD CELLS IN PERIPH VEIN, PERC (02/19/17) ULTRASONOGRAPHY OF RIGHT AND LEFT HEART, TRANSESOPHAGEAL (02/19/17) ULTRASONOGRAPHY OF RIGHT SUBCLAVIAN VEIN, GUIDANCE (08/29/16) ULTRASONOGRAPHY OF RIGHT UPPER EXTREMITY VEINS, GUIDANCE (02/19/17) VACCINATION NEC (10/26/14) VENOUS CATHETERIZATION FOR RENAL DIALYSIS (03/03/14) Family History: States: Unknown Family Hx - Social History Hx Tobacco Use: No Hx Alcohol Use: No Hx Substance Use: No - Immunization History Hx Tetanus Toxoid Vaccination: No Hx Influenza Vaccination: Yes (05/2017) Hx Pneumococcal Vaccination: Yes (2016) Review Of Systems Except As Marked, All Systems Reviewed And Found Negative. Constitutional: Negative for: Fever, Chills Gastrointestinal: Positive for: Nausea, Vomiting, Abdominal Pain. Negative for : Diarrhea Physical Exam - Physical Exam Appears: Non-toxic, No Acute Distress Skin: Normal Color, Warm, Dry Head: Atraumatic, Normacephalic Eye(s): bilateral: Normal Inspection, PERRL, EOMI Nose: Normal Neck: Normal, Normal ROM, Supple Chest: Symmetrical Cardiovascular: Rhythm Regular, No Murmur Respiratory: Normal Breath Sounds, No Accessory Muscle Use Gastrointestinal/Abdominal: Soft, Tenderness (Mild non-focal tenderness) Back: Normal Inspection, No Vertebral Tenderness Extremity: Normal ROM, No Deformity Neurological/Psych: Oriented x3, Normal Speech ED Course And Treatment - Laboratory Results Result Diagrams: 08/16/17 17:58 08/16/17 17:58 O2 Sat by Pulse Oximetry: 98 (RA) Pulse Ox Interpretation: Normal Medical Decision Making Medical Decision Making: Time: 17:31 Initial Impression: 31 y/o female with chronic abdominal pain Initial Plan: * Beta-HCG, quantitative * Urinalysis * CMP * Lipase * CBC w/ differential Time: 18:27 Pt accepted by pmd for admission. Will be hospitalized as observation for intractable abdominal pain, ESRD. Disposition - Disposition Disposition: HOSPITALIZED Disposition Time: 18:27 Condition: STABLE - Clinical Impression Clinical Impression: Abdominal pain - Scribe Statement The provider has reviewed the documentation as recorded by the Scribe (Mare Beard) All medical record entries made by the Scribe were at my direction and personally dictated by me. I have reviewed the chart and agree that the record accurately reflects my personal performance of the history, physical exam, medical decision making, and the department course for this patient. I have also personally directed, reviewed, and agree with the discharge instructions and disposition.
[2017-08-16 18:04] LABS: BASO # 0.1 K/uL (0.0-0.2); BASO % 1.5 % (0.0-2.0); EOS # 0.5 K/uL (0.0-0.7); EOS % 7.2 % (0.0-4.0); HEMOGLOBIN 10.8 g/dL (11.0-16.0); LYMPH # 1.2 K/uL (1.0-4.3); LYMPH % 18.4 % (20.0-40.0); MEAN CELL VOLUME 95.3 fL (81.0-99.0); MEAN CORPUSCULAR HEMOGLOBIN 30.6 pg (27.0-31.0); MEAN CORPUSCULAR HGB CONC 32.1 g/dL (33.0-37.0); MEAN PLATELET VOLUME 7.9 fL (7.2-11.7); MONO # 0.5 K/uL (0.0-0.8); MONO % 8.2 % (0.0-10.0); NEUT % 64.7 % (50.0-75.0); NRBC % 0.1 % (0.0-2.0); RBC 3.52 Mil/uL (3.80-5.20); RED CELL DISTRIBUTION WIDTH 16.3 % (11.5-14.5); WHITE BLOOD COUNT 6.3 K/uL (4.8-10.8)
[2017-08-16 18:25] LABS: ALB/GLOB RATIO 1.1 (1.0-2.1); ALBUMIN 4.2 g/dL (3.5-5.0); CALCIUM 7.1 mg/dl (8.6-10.4)
--- NOTE | 2017-08-16 19:29 | CP.PCM.HP ---
Past Patient History - Infectious Disease Hx of Infectious Diseases: None - Tetanus Immunizations Tetanus Immunization: Unknown - Past Medical History & Family History Past Medical History?: Yes - Past Social History Smoking Status: Never Smoked - CARDIAC Hx Congestive Heart Failure: Yes Hx Hypercholesterolemia: Yes Hx Hypertension: Yes Hx Peripheral Edema: Yes - PULMONARY Hx Asthma: Yes Hx Bronchitis: Yes Hx Pneumonia: Yes Hx Sleep Apnea: Yes - NEUROLOGICAL Hx Seizures: Yes - HEENT Hx HEENT Problems: Yes Hx Cataracts: Yes Hx Glaucoma: Yes - RENAL Hx Chronic Kidney Disease: Yes Hx Kidney Stones: Yes - ENDOCRINE/METABOLIC Hx Hyperthyroidism: Yes Hx Hypothyroidism: Yes - HEMATOLOGICAL/ONCOLOGICAL Hx Anemia: Yes - INTEGUMENTARY Hx Dermatological Problems: Yes Other/Comment: DRY ITCHY SKIN ;multiple/generalized dark spots on skin. left toe blister - MUSCULOSKELETAL/RHEUMATOLOGICAL Hx Fractures: Yes (Sep 2012 L foot) - GASTROINTESTINAL Hx Gall Bladder Disease: Yes (gallbladder removed) Hx Gastritis: Yes Hx Pancreatitis: Yes (chronic) - PSYCHIATRIC Hx Anxiety: Yes Hx Substance Use: No - SURGICAL HISTORY Hx Cholecystectomy: Yes Hx Coronary Stent: Yes - ANESTHESIA Hx Anesthesia: Yes Hx Anesthesia Reactions: No Hx Malignant Hyperthermia: No Meds Allergies/Adverse Reactions: Allergies Allergy/AdvReac Type Severity Reaction Status Date / Time ketorolac tromethamine Allergy RASH Verified 08/16/17 17:16 [From Toradol] latex Allergy RASH Verified 08/16/17 17:16 morphine Allergy RASH Verified 08/16/17 17:16 tramadol Allergy RASH Verified 08/16/17 17:16 Physical Exam - Constitutional Appears: Well - Head Exam Head Exam: ATRAUMATIC, NORMAL INSPECTION, NORMOCEPHALIC - Eye Exam Eye Exam: EOMI, Normal appearance, PERRL Pupil Exam: NORMAL ACCOMODATION, PERRL - ENT Exam ENT Exam: Mucous Membranes Moist, Normal Exam - Neck Exam Neck exam: Positive for: Normal Inspection - Respiratory Exam Respiratory Exam: Decreased Breath Sounds - Cardiovascular Exam Cardiovascular Exam: REGULAR RHYTHM, +S1, +S2 - GI/Abdominal Exam GI & Abdominal Exam: Diminished Bowel Sounds, Soft - Rectal Exam Rectal Exam: Deferred Results - Vital Signs Recent Vital Signs: Last Vital Signs Temp 98.4 F 08/16/17 18:48 Pulse 90 08/16/17 18:48 Resp 20 08/16/17 18:48 BP 232/117 H 08/16/17 18:48 Pulse Ox 98 08/16/17 18:51 - Labs Result Diagrams: 08/16/17 17:58 08/16/17 17:58 Labs: Laboratory Results - last 24 hr 08/16/17 08/16/17 08/16/17 17:58 17:58 18:31 WBC 6.3 RBC 3.52 L Hgb 10.8 L Hct 33.5 L MCV 95.3 MCH 30.6 MCHC 32.1 L RDW 16.3 H Plt Count 345 MPV 7.9 Neut % (Auto) 64.7 Lymph % (Auto) 18.4 L [place] % (Auto) 8.2 Eos % (Auto) 7.2 H Baso % (Auto) 1.5 Neut # 4.0 Lymph # 1.2 [place] # 0.5 Eos # 0.5 Baso # 0.1 Sodium 135 Potassium 4.8 Chloride 93 L Carbon Dioxide 26 Anion Gap 21 H BUN 49 H Creatinine 6.9 H Est GFR ( Amer) 8 Est GFR (Non-Af Amer) 7 Random Glucose 182 H Calcium 7.1 L Total Bilirubin 0.6 AST 30 ALT 40 Alkaline Phosphatase 170 H D Total Protein 8.0 Albumin 4.2 Globulin 3.8 Albumin/Globulin Ratio 1.1 Lipase 58 Beta HCG, Quant < 2.39
[2017-08-17] MEDS ORDERED: NIFEdipine 30 mg ER Tab PO ONE (00:58)
[2017-08-17] MEDS: DiphenhydrAMINE 50 mg/ml Inj IVP PRN ×8 (01:27→22:26)
[2017-08-17] MEDS: (Novolin R) Insulin Human Regular 100 units/ml vial SC SCH ×4 (09:17→22:24)
[2017-08-17] MEDS ORDERED: NIFEdipine 60 mg ER Tab PO ONE (09:28)
--- NOTE | 2017-08-17 09:53 | PCM.RRT ---
INSIDE SOLAR SALES CONSULTANT Nurses Assessment - Situation Date: 08/17/17 Time INSIDE SOLAR SALES CONSULTANT was called: 09:20 INSIDE [employer]AR SALES CONSULTANT Responder Arrival Time:: 09:21 INSIDE [employer] SALES CONSULTANT Location:: Med/Oncology Room Number: 351-B [employer]IDE [employer] SALES CONSULTANT Reason for Call: Hypertension INSIDE SOLAR SALES CONSULTANT Called By: RN - IV IV Inserted during INSIDE SOLAR SALES CONSULTANT?: No CPR started during INSIDE SOLAR SALES CONSULTANT?: No - Recommendations Notifications: Attending Physician I.Reason for INSIDE SOLAR SALES CONSULTANT - A) Acute Change in Patient: (Select all that apply): Staff member or family is worried about patient - Neurological Status (Select all that apply): Alert, Oriented, Follows Commands - Constitutional Appears: No Acute Distress - Head Head Exam: ATRAUMATIC, NORMAL INSPECTION, NORMOCEPHALIC - Eyes Eye Exam: EOMI, Normal appearance - Respiratory Exam Respiratory Exam: NORMAL BREATHING PATTERN - Cardiovascular Exam Cardiovascular Exam: +S1, +S2 - Neurological Exam Neurological Exam: Alert, Awake - Extremities Exam Extremities Exam: Full ROM Plan - Assessment of Findings&Treatment Plan INSIDE [employer]AR SALES CONSULTANT called at 9:20AM for hypertensive urgency. Patient AAOx3 in bed. Patient's reported BP before Rapid response was called 218/130 BP at 9:20AM : 232/125 BP at 9:30 AM : 244/122 Hydralazine 10 mg IV administered BP check at 9:41AM : 208/118 Patient remained awake, alert, oriented. Patient able to converse the entire time. Patient's vitals remained stable. 9:20AM: BP as mentioned above, HR 78, Respirations 20 O2 saturation 100% on room air Patient was admitted overnight however no admitting orders were placed. Patient was given clonidine in the ER. Patient administered 30 mg Nifedipine by the overnight resident. Patient's systolic blood pressure reportedly known to be in the 200s at baseline. At the time of INSIDE SOLAR SALES CONSULTANT evaluation, patient was given Hydralazine 10 mg IV, Clonidine 0.3 mg, and Nifedipine 30 mg. Patient was later re-evaluated one hour later. BP at the time was 202/99. Patient given another 30 mg of Nifedipine. Patient's home medications are Clonidine 0.3 mg PO BID, Nifedipine ER 60 mg PO BID, and Hydralazine 25 mg PO TID. Patient's primary attending was contacted. Recommendations were made for home medications to be restarted. Patient scheduled to go to dialysis later in the day.
[2017-08-17] MEDS: NIFEdipine 30 mg ER Tab PO SCH ×2 (10:42→14:39)
[2017-08-17] MEDS ORDERED: FENTANYL 50 MCG TD SCH (11:15)
[2017-08-17] MEDS: Insulin Detemir 100 units/ml Vial (Levemir) SC SCH ×2 (11:59→22:24)
[2017-08-17] MEDS: Pantoprazole 40 mg EC Tab PO SCH (12:00)
[2017-08-17] MEDS: Ergocalciferol 50,000 Intl Units Cap PO SCH (12:15)
[2017-08-17] MEDS ORDERED: DiphenhydrAMINE 50 mg/ml Inj IVP ONE (12:56)
--- NOTE | 2017-08-17 15:52 | CP.PCM.PN ---
Subjective - Date & Time of Evaluation Date of Evaluation: 08/17/17 Time of Evaluation: 10:00 - Subjective Subjective: clinically same Objective - Vital Signs/Intake and Output Vital Signs (last 24 hours): Temp Pulse Resp BP Pulse Ox 97.6 F 91 H 20 196/94 H 99 08/17/17 10:55 08/17/17 14:30 08/17/17 10:55 08/17/17 14:30 08/17/17 12:40 Intake and Output: 08/17/17 08/17/17 06:59 18:59 Intake Total 360 Balance 360 - Medications Medications: Current Medications Calcium Acetate (Phoslo) 667 mg PO TID [facility] Last Admin: 08/17/17 14:06 Dose: Not Given Clonidine HCl (Catapres) 0.3 mg PO BID [facility] Diphenhydramine HCl (Benadryl) 25 mg IVP Q3 PRN PRN Reason: for itching Last Admin: 08/17/17 14:35 Dose: 25 mg Ergocalciferol (Drisdol 50,000 Intl Units Cap) 1 cap PO Q7D [facility] Last Admin: 08/17/17 12:15 Dose: Not Given Gabapentin (Neurontin) 300 mg PO BID [facility] Heparin Sodium (Porcine) (Heparin) 5,000 units SC Q12 [facility] Last Admin: 08/17/17 10:42 Dose: Not Given Hydromorphone HCl (Dilaudid) 2 mg IVP Q3 PRN PRN Reason: Pain, severe (8-10) Last Admin: 08/17/17 14:34 Dose: 2 mg Insulin Detemir (Levemir) 12 unit SC Q12 [facility] Last Admin: 08/17/17 11:59 Dose: Not Given Insulin Human Regular (Novolin R) 0 unit SC ACHS [facility] PRN Reason: Protocol Last Admin: 08/17/17 11:59 Dose: Not Given Metoclopramide HCl (Reglan) 10 mg IVP DAILY PRN PRN Reason: Nausea/Vomiting Nifedipine (Procardia Xl) 30 mg PO DAILY [facility] Last Admin: 08/17/17 14:39 Dose: 30 mg Pantoprazole Sodium (Protonix Ec Tab) 40 mg PO DAILY [facility] Last Admin: 08/17/17 12:00 Dose: Not Given Vitamin B Complex/Vit C/Folic Acid (Nephro-Vamshi) 1 tab PO 0800 [facility] - [facility] Labs: 08/16/17 17:58 08/16/17 17:58
--- NOTE | 2017-08-17 17:29 | CP.PCM.PN ---
Subjective - Date & Time of Evaluation Date of Evaluation: 08/17/17 Time of Evaluation: 17:26 - Subjective Subjective: RADIO STATION AUDIO ENGINEER REC'D CALL FROM PODIATRY RESIDENT TODAY REGARDING PT. PODIATRY PLANNING TO DO SURGICAL PROCEDURE ON SUNDAY, HOWEVER, DUE TO PT'S HTN URGENCY THEY NEED CARDIAC CLEARANCE. PT HAS BEEN MOVED TO TELE FLOOR. PT TO BE SEEN ALSO BY DR. CAMPOS FOR A POSS ERIK CATH (I HAVE DISCUSSED WITH HIM). DR. Edilia CARVALHO MADE AWARE THAT CARDIAC CLEARANCE IS BEING REQUESTED BY PODIATRY. AT THIS TIME I AM WAITING FOR DR. CARVALHO TO INFORM ME OF WHICH FIELD ENGINEER SO THAT THEY CAN BE CALLED FOR CONSULT. INFORMED PRIMARY RN OF PLAN AND RN TO ALSO F/U FOR CARDIAC CONSULT. HAD LENGTHY DISCUSSION WITH PT AND SHE IS AWARE OF THE PLAN. NO FURTHER ORDERS. Objective - Vital Signs/Intake and Output Vital Signs (last 24 hours): Temp Pulse Resp BP Pulse Ox 97.7 F 87 20 174/111 H 100 08/17/17 16:40 08/17/17 16:40 08/17/17 16:40 08/17/17 16:40 08/17/17 16:40 Intake and Output: 08/17/17 08/17/17 06:59 18:59 Intake Total 360 Balance 360 - Medications Medications: Current Medications Calcium Acetate (Phoslo) 667 mg PO TID [facility] Last Admin: 08/17/17 14:06 Dose: Not Given Clonidine HCl (Catapres) 0.3 mg PO BID [facility] Diphenhydramine HCl (Benadryl) 25 mg IVP Q3 PRN PRN Reason: for itching Last Admin: 08/17/17 14:35 Dose: 25 mg Ergocalciferol (Drisdol 50,000 Intl Units Cap) 1 cap PO Q7D [facility] Last Admin: 08/17/17 12:15 Dose: Not Given Gabapentin (Neurontin) 300 mg PO BID [facility] Heparin Sodium (Porcine) (Heparin) 5,000 units SC Q12 [facility] Last Admin: 08/17/17 10:42 Dose: Not Given Hydromorphone HCl (Dilaudid) 2 mg IVP Q3 PRN PRN Reason: Pain, severe (8-10) Last Admin: 08/17/17 14:34 Dose: 2 mg Insulin Detemir (Levemir) 12 unit SC Q12 [facility] Last Admin: 08/17/17 11:59 Dose: Not Given Insulin Human Regular (Novolin R) 0 unit SC ACHS [facility] PRN Reason: Protocol Last Admin: 08/17/17 11:59 Dose: Not Given Metoclopramide HCl (Reglan) 10 mg IVP DAILY PRN PRN Reason: Nausea/Vomiting Nifedipine (Procardia Xl) 30 mg PO DAILY [facility] Last Admin: 08/17/17 14:39 Dose: 30 mg Pantoprazole Sodium (Protonix Ec Tab) 40 mg PO DAILY [facility] Last Admin: 08/17/17 12:00 Dose: Not Given Vitamin B Complex/Vit C/Folic Acid (Nephro-Vamshi) 1 tab PO 0800 [facility] - Labs Labs: 08/16/17 17:58 08/16/17 17:58
--- NOTE | 2017-08-17 21:50 | CP.PCM.CON ---
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 PMH Anemia, Anxiety, Asthma, Bronchitis, CHF, Diabetes, Fractures (Sep 2012 L foot), Gastritis, Gastrointestinal Ulcer (gastroparesis), Gall Bladder Disease ( gallbladder removed), Hepatitis, HTN, Hypercholesterolemia, Hyperthyroidism, Hypothyroidism, Kidney Stones, Pancreatitis (chronic), Peripheral Edema, Pneumonia, End Stage Renal Disease, Chronic Kidney Disease, Seizures, Sleep Apnea, Chronic Pain Surgical History: Cholecystectomy, Coronary Stent Past Patient History - Infectious Disease Hx of Infectious Diseases: None - Tetanus Immunizations Tetanus Immunization: Unknown - Past Medical History & Family History Past Medical History?: Yes - Past Social History Smoking Status: Never Smoked - CARDIAC Hx Congestive Heart Failure: Yes Hx Hypercholesterolemia: Yes Hx Hypertension: Yes Hx Peripheral Edema: Yes - PULMONARY Hx Asthma: Yes Hx Bronchitis: Yes Hx Pneumonia: Yes Hx Sleep Apnea: Yes - NEUROLOGICAL Hx Seizures: Yes - HEENT Hx HEENT Problems: Yes Hx Cataracts: Yes Hx Glaucoma: Yes - RENAL Hx Chronic Kidney Disease: Yes Hx Dialysis: Yes Hx Kidney Stones: Yes Hx Renal Failure: Yes (esrd ) - ENDOCRINE/METABOLIC Hx Diabetes Mellitus Type 1: Yes (since age 11) Hx Hyperthyroidism: Yes Hx Hypothyroidism: Yes - HEMATOLOGICAL/ONCOLOGICAL Hx Anemia: Yes - INTEGUMENTARY Hx Dermatological Problems: Yes Other/Comment: DRY ITCHY SKIN ;multiple/generalized dark spots on skin. left toe blister - MUSCULOSKELETAL/RHEUMATOLOGICAL Hx Fractures: Yes (Sep 2012 L foot) - GASTROINTESTINAL Hx Gall Bladder Disease: Yes (gallbladder removed) Hx Gastritis: Yes Hx Pancreatitis: Yes (chronic) - PSYCHIATRIC Hx Anxiety: Yes Hx Substance Use: No - SURGICAL HISTORY Hx Cholecystectomy: Yes Hx Coronary Stent: Yes - ANESTHESIA Hx Anesthesia: Yes Hx Anesthesia Reactions: No Hx Malignant Hyperthermia: No Meds Allergies/Adverse Reactions: Allergies Allergy/AdvReac Type Severity Reaction Status Date / Time ketorolac tromethamine Allergy RASH Verified 08/16/17 17:16 [From Toradol] latex Allergy RASH Verified 08/16/17 17:16 morphine Allergy RASH Verified 08/16/17 17:16 tramadol Allergy RASH Verified 08/16/17 17:16 - Medications Medications: Current Medications Calcium Acetate (Phoslo) 667 mg PO TID [facility] Last Admin: 08/17/17 17:29 Dose: 667 mg Clonidine HCl (Catapres) 0.3 mg PO BID [facility] Last Admin: 08/17/17 17:29 Dose: 0.3 mg Diphenhydramine HCl (Benadryl) 25 mg IVP Q3 PRN PRN Reason: for itching Last Admin: 08/17/17 17:30 Dose: 25 mg Ergocalciferol (Drisdol 50,000 Intl Units Cap) 1 cap PO Q7D [facility] Last Admin: 08/17/17 12:15 Dose: Not Given Gabapentin (Neurontin) 300 mg PO BID [facility] Last Admin: 08/17/17 17:29 Dose: 300 mg Heparin Sodium (Porcine) (Heparin) 5,000 units SC Q12 [facility] Last Admin: 08/17/17 10:42 Dose: Not Given Hydromorphone HCl (Dilaudid) 2 mg IVP Q3 PRN PRN Reason: Pain, severe (8-10) Last Admin: 08/17/17 17:29 Dose: 2 mg Insulin Detemir (Levemir) 12 unit SC Q12 [facility] Last Admin: 08/17/17 11:59 Dose: Not Given Insulin Human Regular (Novolin R) 0 unit SC ACHS [facility] PRN Reason: Protocol Last Admin: 08/17/17 17:39 Dose: 6 unit Metoclopramide HCl (Reglan) 10 mg IVP DAILY PRN PRN Reason: Nausea/Vomiting Metronidazole (Flagyl) 250 mg PO Q8H [facility] Stop: 08/24/17 17:46 Last Admin: 08/17/17 18:44 Dose: 250 mg Nifedipine (Procardia Xl) 30 mg PO DAILY [facility] Last Admin: 08/17/17 14:39 Dose: 30 mg Pantoprazole Sodium (Protonix Ec Tab) 40 mg PO DAILY [facility] Last Admin: 08/17/17 12:00 Dose: Not Given Vitamin B Complex/Vit C/Folic Acid (Nephro-Vamshi) 1 tab PO 0800 [facility] Physical Exam - Constitutional Appears: No Acute Distress - GI/Abdominal Exam GI & Abdominal Exam: Soft - Exam External exam: Lesions (labia dry and keratinised areas seen) Speculum exam: Vaginal Discharge (craemy whuet discharge seen; unable tos ee cervxi secodnary to patient discomfort; refused bimanual exam) - Neurological Exam Neurological exam: Alert, Oriented x3 - Psychiatric Exam Psychiatric exam: Normal Affect, Normal Mood Results - Vital Signs Recent Vital Signs: Last Vital Signs Temp 97.7 F 08/17/17 16:40 Pulse 89 08/17/17 17:30 Resp 20 08/17/17 16:40 BP 161/81 H 08/17/17 17:30 Pulse Ox 100 08/17/17 16:40 - Labs Result Diagrams: 08/16/17 17:58 08/16/17 17:58 Labs: Laboratory Results - last 24 hr 08/17/17 08/17/17 08/17/17 07:33 09:23 11:12 POC Glucose (mg/dL) 291 H 302 H 267 H Assessment & Plan (1) Vaginal discharge Assessment and Plan: Patient with c/o vaginal discharge,clinically bv and yeast.patient not sexually active -continue flagyl] -will give 1 dose of diflucan -use antifungal-steroid topiacll on vulva -keep blood sugars under control Status: Acute (2) Amenorrhea Assessment and Plan: ?secondary to illness.recommend checking tsh, fsh, lh , prolctin and estradiol and pelvic ultrasound if patient agrees follow up as outpatient Status: Acute
--- NOTE | 2017-08-17 23:15 | CP.PCM.CON ---
History of Present Illness - History of Present Illness History of Present Illness: REASONS FOR CONSULT : ESRD ON HD M W F @ SAT ANEMIA OF CKD ELECTROLYTES ABN PT IS WELL KNOWN TO ME .. WITH MMP AND FREQEUNT ADMISSIONS Nannette Collins is a 31 year old female with a PMHx of sickle cell disease, gastroparesis and end stage renal disease (on dialysis), presenting to the ER for chronic abdominal pain. Associated with nausea and vomiting. Patient is well known to the ER. Last dialysis was yesterday. PMD: Dr. Edilia Sexton Time Seen by Provider: 08/16/17 17:29 Chief Complaint (Nursing): Abdominal Pain History Per: Patient History/Exam Limitations: no limitations Onset/Duration Of Symptoms: Persistent Current Symptoms Are (Timing): Still Present Past Medical History Reviewed: Historical Data, Nursing Documentation, Vital Signs Vital Signs: Last Vital Signs Temp 98.4 F 08/16/17 18:48 Pulse 90 08/16/17 18:48 Resp 20 08/16/17 18:48 BP 232/117 H 08/16/17 18:48 Pulse Ox 98 08/16/17 22:43 - Medical History PMH: Anemia, Anxiety, Asthma, Bronchitis, CHF, Diabetes, Fractures (Sep 2012 L foot), Gastritis, Gastrointestinal Ulcer (gastroparesis), Gall Bladder Disease ( gallbladder removed), Hepatitis, HTN, Hypercholesterolemia, Hyperthyroidism, Hypothyroidism, Kidney Stones, Pancreatitis (chronic), Peripheral Edema, Pneumonia, End Stage Renal Disease, Chronic Kidney Disease, Seizures, Sleep Apnea, Chronic Pain Surgical History: Cholecystectomy, Coronary Stent Past Patient History - Infectious Disease Hx of Infectious Diseases: None - Tetanus Immunizations Tetanus Immunization: Unknown - Past Medical History & Family History Past Medical History?: Yes - Past Social History Smoking Status: Never Smoked - CARDIAC Hx Congestive Heart Failure: Yes Hx Hypercholesterolemia: Yes Hx Hypertension: Yes Hx Peripheral Edema: Yes - PULMONARY Hx Asthma: Yes Hx Bronchitis: Yes Hx Pneumonia: Yes Hx Sleep Apnea: Yes - NEUROLOGICAL Hx Seizures: Yes - HEENT Hx HEENT Problems: Yes Hx Cataracts: Yes Hx Glaucoma: Yes - RENAL Hx Chronic Kidney Disease: Yes Hx Dialysis: Yes Hx Kidney Stones: Yes Hx Renal Failure: Yes (esrd ) - ENDOCRINE/METABOLIC Hx Diabetes Mellitus Type 1: Yes (since age 11) Hx Hyperthyroidism: Yes Hx Hypothyroidism: Yes - HEMATOLOGICAL/ONCOLOGICAL Hx Anemia: Yes - INTEGUMENTARY Hx Dermatological Problems: Yes Other/Comment: DRY ITCHY SKIN ;multiple/generalized dark spots on skin. left toe blister - MUSCULOSKELETAL/RHEUMATOLOGICAL Hx Fractures: Yes (Sep 2012 L foot) - GASTROINTESTINAL Hx Gall Bladder Disease: Yes (gallbladder removed) Hx Gastritis: Yes Hx Pancreatitis: Yes (chronic) - PSYCHIATRIC Hx Anxiety: Yes Hx Substance Use: No - SURGICAL HISTORY Hx Cholecystectomy: Yes Hx Coronary Stent: Yes - ANESTHESIA Hx Anesthesia: Yes Hx Anesthesia Reactions: No Hx Malignant Hyperthermia: No Meds Allergies/Adverse Reactions: Allergies Allergy/AdvReac Type Severity Reaction Status Date / Time ketorolac tromethamine Allergy RASH Verified 08/16/17 17:16 [From Toradol] latex Allergy RASH Verified 08/16/17 17:16 morphine Allergy RASH Verified 08/16/17 17:16 tramadol Allergy RASH Verified 08/16/17 17:16 - Medications Medications: Current Medications Betamethasone/Clotrimazole (Lotrisone) 0 gm TOP BID [facility] Stop: 08/25/17 10:01 Calcium Acetate (Phoslo) 667 mg PO TID [facility] Last Admin: 08/17/17 17:29 Dose: 667 mg Clonidine HCl (Catapres) 0.3 mg PO BID [facility] Last Admin: 08/17/17 17:29 Dose: 0.3 mg Diphenhydramine HCl (Benadryl) 25 mg IVP Q3 PRN PRN Reason: for itching Last Admin: 08/17/17 22:26 Dose: 25 mg Ergocalciferol (Drisdol 50,000 Intl Units Cap) 1 cap PO Q7D [facility] Last Admin: 08/17/17 12:15 Dose: Not Given Gabapentin (Neurontin) 300 mg PO BID [facility] Last Admin: 08/17/17 17:29 Dose: 300 mg Heparin Sodium (Porcine) (Heparin) 5,000 units SC Q12 [facility] Last Admin: 08/17/17 10:42 Dose: Not Given Hydromorphone HCl (Dilaudid) 2 mg IVP Q3 PRN PRN Reason: Pain, severe (8-10) Last Admin: 08/17/17 22:25 Dose: 2 mg Insulin Detemir (Levemir) 12 unit SC Q12 [facility] Last Admin: 08/17/17 22:24 Dose: 12 unit Insulin Human Regular (Novolin R) 0 unit SC ACHS [facility] PRN Reason: Protocol Last Admin: 08/17/17 22:24 Dose: 2 unit Metoclopramide HCl (Reglan) 10 mg IVP DAILY PRN PRN Reason: Nausea/Vomiting Metronidazole (Flagyl) 250 mg PO Q8H [facility] Stop: 08/24/17 17:46 Last Admin: 08/17/17 18:44 Dose: 250 mg Nifedipine (Procardia Xl) 30 mg PO DAILY [facility] Last Admin: 08/17/17 14:39 Dose: 30 mg Pantoprazole Sodium (Protonix Ec Tab) 40 mg PO DAILY [facility] Last Admin: 08/17/17 12:00 Dose: Not Given Vitamin B Complex/Vit C/Folic Acid (Nephro-Vamshi) 1 tab PO 0800 [facility] Results - Vital Signs Recent Vital Signs: Last Vital Signs Temp 97.7 F 08/17/17 16:40 Pulse 89 08/17/17 17:30 Resp 20 08/17/17 16:40 BP 161/81 H 08/17/17 17:30 Pulse Ox 100 08/17/17 16:40 - Labs Result Diagrams: 08/16/17 17:58 08/16/17 17:58 Labs: Laboratory Results - last 24 hr 08/17/17 08/17/17 08/17/17 07:33 09:23 11:12 POC Glucose (mg/dL) 291 H 302 H 267 H 08/17/17 21:55 POC Glucose (mg/dL) 323 H Assessment & Plan - Assessment and Plan (Free Text) Assessment: ESRD ON HD M W F AND SAT .. PT RECIEVWD HD TODAY (FRI ) ALSO HD IN AM (SAT ) ANEMIA OF CKD .. H/H STABLE MMP .. P : C/O CURRENT CARE C/O PRESENT MEDS - Date & Time Date: 08/17/17 Time: 15:00
[2017-08-18] MEDS: DiphenhydrAMINE 50 mg/ml Inj IVP PRN ×7 (01:30→22:15)
[2017-08-18] MEDS: (Novolin R) Insulin Human Regular 100 units/ml vial SC SCH ×4 (07:35→22:20)
[2017-08-18] MEDS: Multivitamin Vitamin B Complex (Nephro-Vite) Tab PO SCH (08:21)
--- NOTE | 2017-08-18 08:25 | CP.PCM.CON ---
History of Present Illness - History of Present Illness History of Present Illness: Surgery 31 F w h/o sickle cell and ESRD on HD came with abd pain and vaginal discharge. Surgery is consulted to place a port for poor vascular access and tx for sickle cell. Pt had port placed in the past on her R chest and has been removed. Denies F/C/N/V/D/CP/SOB. PMH: see above PSH: cholecystectomy, port insertioni and removal. Ex lap Review of Systems - Review of Systems Review of Systems: See HPI Past Patient History - Infectious Disease Hx of Infectious Diseases: None - Tetanus Immunizations Tetanus Immunization: Unknown - Past Medical History & Family History Past Medical History?: Yes - Past Social History Smoking Status: Never Smoked - CARDIAC Hx Congestive Heart Failure: Yes Hx Hypercholesterolemia: Yes Hx Hypertension: Yes Hx Peripheral Edema: Yes - PULMONARY Hx Asthma: Yes Hx Bronchitis: Yes Hx Pneumonia: Yes Hx Sleep Apnea: Yes - NEUROLOGICAL Hx Seizures: Yes - HEENT Hx HEENT Problems: Yes Hx Cataracts: Yes Hx Glaucoma: Yes - RENAL Hx Chronic Kidney Disease: Yes Hx Dialysis: Yes Hx Kidney Stones: Yes Hx Renal Failure: Yes (esrd ) - ENDOCRINE/METABOLIC Hx Diabetes Mellitus Type 1: Yes (since age 11) Hx Hyperthyroidism: Yes Hx Hypothyroidism: Yes - HEMATOLOGICAL/ONCOLOGICAL Hx Anemia: Yes - INTEGUMENTARY Hx Dermatological Problems: Yes Other/Comment: DRY ITCHY SKIN ;multiple/generalized dark spots on skin. left toe blister - MUSCULOSKELETAL/RHEUMATOLOGICAL Hx Fractures: Yes (Sep 2012 L foot) - GASTROINTESTINAL Hx Gall Bladder Disease: Yes (gallbladder removed) Hx Gastritis: Yes Hx Pancreatitis: Yes (chronic) - PSYCHIATRIC Hx Anxiety: Yes Hx Substance Use: No - SURGICAL HISTORY Hx Cholecystectomy: Yes Hx Coronary Stent: Yes - ANESTHESIA Hx Anesthesia: Yes Hx Anesthesia Reactions: No Hx Malignant Hyperthermia: No Meds Allergies/Adverse Reactions: Allergies Allergy/AdvReac Type Severity Reaction Status Date / Time ketorolac tromethamine Allergy RASH Verified 08/16/17 17:16 [From Toradol] latex Allergy RASH Verified 08/16/17 17:16 morphine Allergy RASH Verified 08/16/17 17:16 tramadol Allergy RASH Verified 08/16/17 17:16 - Medications Medications: Current Medications Betamethasone/Clotrimazole (Lotrisone) 0 gm TOP BID [facility] Stop: 08/25/17 10:01 Calcium Acetate (Phoslo) 667 mg PO TID [facility] Last Admin: 08/17/17 17:29 Dose: 667 mg Clonidine HCl (Catapres) 0.3 mg PO BID [facility] Last Admin: 08/17/17 17:29 Dose: 0.3 mg Diphenhydramine HCl (Benadryl) 25 mg IVP Q3 PRN PRN Reason: for itching Last Admin: 08/18/17 06:42 Dose: 25 mg Ergocalciferol (Drisdol 50,000 Intl Units Cap) 1 cap PO Q7D [facility] Last Admin: 08/17/17 12:15 Dose: Not Given Gabapentin (Neurontin) 300 mg PO BID [facility] Last Admin: 08/17/17 17:29 Dose: 300 mg Heparin Sodium (Porcine) (Heparin) 5,000 units SC Q12 [facility] Last Admin: 08/17/17 22:00 Dose: Not Given Hydromorphone HCl (Dilaudid) 2 mg IVP Q3 PRN PRN Reason: Pain, severe (8-10) Last Admin: 08/18/17 06:41 Dose: 2 mg Insulin Detemir (Levemir) 12 unit SC Q12 [facility] Last Admin: 08/17/17 22:24 Dose: 12 unit Insulin Human Regular (Novolin R) 0 unit SC ACHS [facility] PRN Reason: Protocol Last Admin: 08/18/17 07:35 Dose: Not Given Metoclopramide HCl (Reglan) 10 mg IVP DAILY PRN PRN Reason: Nausea/Vomiting Metronidazole (Flagyl) 250 mg PO Q8H [facility] Stop: 08/24/17 17:46 Last Admin: 08/18/17 01:38 Dose: 250 mg Nifedipine (Procardia Xl) 30 mg PO DAILY [facility] Last Admin: 08/17/17 14:39 Dose: 30 mg Pantoprazole Sodium (Protonix Ec Tab) 40 mg PO DAILY [facility] Last Admin: 08/17/17 12:00 Dose: Not Given Vitamin B Complex/Vit C/Folic Acid (Nephro-Vamshi) 1 tab PO 0800 [facility] Last Admin: 08/18/17 08:21 Dose: 1 tab Physical Exam - Constitutional Appears: No Acute Distress - Head Exam Head Exam: ATRAUMATIC, NORMAL INSPECTION, NORMOCEPHALIC - Eye Exam Eye Exam: EOMI, Normal appearance, PERRL Pupil Exam: NORMAL ACCOMODATION, PERRL - ENT Exam ENT Exam: Mucous Membranes Moist, Normal Exam - Neck Exam Neck exam: Positive for: Normal Inspection - Respiratory Exam Respiratory Exam: Clear to Auscultation Bilateral, NORMAL BREATHING PATTERN - Cardiovascular Exam Cardiovascular Exam: REGULAR RHYTHM - GI/Abdominal Exam GI & Abdominal Exam: Normal Bowel Sounds, Soft, Tenderness. absent: Distended, Firm - Extremities Exam Extremities exam: Positive for: normal inspection - Back Exam Back exam: NORMAL INSPECTION - Neurological Exam Neurological exam: Alert, CN II-XII Intact, Normal Gait, Oriented x3, Reflexes Normal - Psychiatric Exam Psychiatric exam: Normal Affect, Normal Mood - Skin Skin Exam: Dry, Intact, Normal Color, Warm Results - Vital Signs Recent Vital Signs: Last Vital Signs Temp 98.2 F 08/17/17 23:25 Pulse 73 08/18/17 00:00 Resp 18 08/17/17 23:25 BP 176/102 H 08/17/17 23:25 Pulse Ox 98 08/18/17 07:44 - Labs Result Diagrams: 08/16/17 17:58 08/16/17 17:58 Labs: Laboratory Results - last 24 hr 08/17/17 08/17/17 08/17/17 09:23 11:12 21:55 POC Glucose (mg/dL) 302 H 267 H 323 H 08/18/17 06:33 POC Glucose (mg/dL) 86 Assessment & Plan - Assessment and Plan (Free Text) Assessment: Poor vein access and sickle cell -OR on Sunday for port insertion -NPO after midnight on Sunday -Medical management -Consent in chart DW Dr. Alicia
[2017-08-18] MEDS: Pantoprazole 40 mg EC Tab PO SCH (09:44)
[2017-08-18] MEDS: Insulin Detemir 100 units/ml Vial (Levemir) SC SCH ×2 (09:44→22:19)
[2017-08-18] MEDS: NIFEdipine 30 mg ER Tab PO SCH (10:48)
[2017-08-18] MEDS: Clotrimazole/Betamethasone Cream(15 gm) TOP SCH ×2 (10:48→18:18)
--- NOTE | 2017-08-18 13:19 | CP.PCM.CON ---
History of Present Illness - History of Present Illness History of Present Illness: Podiatry Progress Note for Dr. Tilley 31 year old female with PMHx of CHF, HTN, DM, anemia, anxiety, asthma, gastritis , GI ulcer, GB disease s/p cholecystectomy, hepatitis hypercholesterolemia, hyperthyroidism, renal stone, pancreatitis, ESRD was seen at bedside this morning after request for podiatry consultation. Patient is currently 1 month s/ p 3rd digit total nail avulsion and left hallux partial nail avulsion. Patient states she is in the hospital for abdominal pain and vaginal discharge. Patient denies any pain to the left hallux, but admits pain to both of her 3rd digits at the site of nail avulsions and says they are tender to touch. Denies noticing any drainage from the toes or any redness or swelling. Patient denies having any other pedal complaints. She denies F/C/N/V/CP/SOB. Past Patient History - Infectious Disease Hx of Infectious Diseases: None - Tetanus Immunizations Tetanus Immunization: Unknown - Past Medical History & Family History Past Medical History?: Yes - Past Social History Smoking Status: Never Smoked - CARDIAC Hx Congestive Heart Failure: Yes Hx Hypercholesterolemia: Yes Hx Hypertension: Yes Hx Peripheral Edema: Yes - PULMONARY Hx Asthma: Yes Hx Bronchitis: Yes Hx Pneumonia: Yes Hx Sleep Apnea: Yes - NEUROLOGICAL Hx Seizures: Yes - HEENT Hx HEENT Problems: Yes Hx Cataracts: Yes Hx Glaucoma: Yes - RENAL Hx Chronic Kidney Disease: Yes Hx Dialysis: Yes Hx Kidney Stones: Yes Hx Renal Failure: Yes (esrd ) - ENDOCRINE/METABOLIC Hx Diabetes Mellitus Type 1: Yes (since age 11) Hx Hyperthyroidism: Yes Hx Hypothyroidism: Yes - HEMATOLOGICAL/ONCOLOGICAL Hx Anemia: Yes - INTEGUMENTARY Hx Dermatological Problems: Yes Other/Comment: DRY ITCHY SKIN ;multiple/generalized dark spots on skin. left toe blister - MUSCULOSKELETAL/RHEUMATOLOGICAL Hx Fractures: Yes (Sep 2012 L foot) - GASTROINTESTINAL Hx Gall Bladder Disease: Yes (gallbladder removed) Hx Gastritis: Yes Hx Pancreatitis: Yes (chronic) - PSYCHIATRIC Hx Anxiety: Yes Hx Substance Use: No - SURGICAL HISTORY Hx Cholecystectomy: Yes Hx Coronary Stent: Yes - ANESTHESIA Hx Anesthesia: Yes Hx Anesthesia Reactions: No Hx Malignant Hyperthermia: No Meds Allergies/Adverse Reactions: Allergies Allergy/AdvReac Type Severity Reaction Status Date / Time ketorolac tromethamine Allergy RASH Verified 08/16/17 17:16 [From Toradol] latex Allergy RASH Verified 08/16/17 17:16 morphine Allergy RASH Verified 08/16/17 17:16 tramadol Allergy RASH Verified 08/16/17 17:16 - Medications Medications: Current Medications Betamethasone/Clotrimazole (Lotrisone) 0 gm TOP BID [facility] Stop: 08/25/17 10:01 Last Admin: 08/18/17 10:48 Dose: Not Given Calcium Acetate (Phoslo) 667 mg PO TID [facility] Last Admin: 08/18/17 09:52 Dose: Not Given Clonidine HCl (Catapres) 0.3 mg PO BID [facility] Last Admin: 08/18/17 10:47 Dose: Not Given Diphenhydramine HCl (Benadryl) 25 mg IVP Q3 PRN PRN Reason: for itching Last Admin: 08/18/17 12:44 Dose: 25 mg Ergocalciferol (Drisdol 50,000 Intl Units Cap) 1 cap PO Q7D [facility] Last Admin: 08/17/17 12:15 Dose: Not Given Gabapentin (Neurontin) 300 mg PO BID [facility] Last Admin: 08/18/17 09:44 Dose: 300 mg Heparin Sodium (Porcine) (Heparin) 5,000 units SC Q12 [facility] Last Admin: 08/18/17 09:52 Dose: Not Given Hydromorphone HCl (Dilaudid) 2 mg IVP Q3 PRN PRN Reason: Pain, severe (8-10) Last Admin: 08/18/17 12:44 Dose: 2 mg Insulin Detemir (Levemir) 12 unit SC Q12 [facility] Last Admin: 08/18/17 09:44 Dose: 12 unit Insulin Human Regular (Novolin R) 0 unit SC ACHS [facility] PRN Reason: Protocol Last Admin: 08/18/17 12:30 Dose: 6 unit Metoclopramide HCl (Reglan) 10 mg IVP DAILY PRN PRN Reason: Nausea/Vomiting Metronidazole (Flagyl) 250 mg PO Q8H [facility] Stop: 08/24/17 17:46 Last Admin: 08/18/17 09:44 Dose: 250 mg Nifedipine (Procardia Xl) 30 mg PO DAILY [facility] Last Admin: 08/18/17 10:48 Dose: Not Given Pantoprazole Sodium (Protonix Ec Tab) 40 mg PO DAILY [facility] Last Admin: 08/18/17 09:44 Dose: 40 mg Vitamin B Complex/Vit C/Folic Acid (Nephro-Vamshi) 1 tab PO 0800 [facility] Last Admin: 08/18/17 08:21 Dose: 1 tab Physical Exam - Constitutional Appears: Well, Non-toxic, No Acute Distress - Extremities Exam Additional comments: Bilateral lower extremity exam Vasc: DP and PT pulses palpable 2/4 bilaterally, INTERPRETER DEAF less than 3 seconds to all digits bilaterally, mild localized non-pitting edema noted to the 3rd digits bilaterally DERM: Left: Small open wound noted to Left 3rd digit distal aspect at the site of nail avulsion measuring 0.3cm x 0.3cm x 0.2cm with mild erythema around the site of nail avulsion. No Probe to bone. No drainage is noted. No malodor is noted. No sign of acute infection is noted. Right:No open wound is noted to the right 3rd digit. No drainage is noted. Mild erythema is noted to the right 3rd digit. No sign of acute infection is noted. No malodor is noted. Ortho: tenderness noted to the 3rd digit nail beds B/L. Mild tenderness to left hallux at lateral nail border Neuro: gross sensation intact - Neurological Exam Neurological exam: Alert, Oriented x3 - Psychiatric Exam Psychiatric exam: Normal Affect, Normal Mood Results - Vital Signs Recent Vital Signs: Last Vital Signs Temp 97.5 F L 08/18/17 08:52 Pulse 80 08/18/17 08:52 Resp 20 08/18/17 08:52 BP 181/68 H 08/18/17 08:52 Pulse Ox 100 08/18/17 08:52 - Labs Result Diagrams: 08/16/17 17:58 08/16/17 17:58 Labs: Laboratory Results - last 24 hr 08/17/17 08/18/17 08/18/17 21:55 06:33 11:42 POC Glucose (mg/dL) 323 H 86 261 H Assessment & Plan - Assessment and Plan (Free Text) Assessment: 31 year old female patient 1 month s/p bilateral 3rd digit total nail avulsion and left great toe partial nail avulsion -wound to bilateral 3rd digits improving in terms of size, erythema and edema Plan: Patient examined and evaluated at bedside Discussed in detail with attending Dr. Tilley Charts, labs, vitals reviewed -afebrile, NNL today Surgical incisions cleansed with peroxide and dressed with DSD Surgical site to be cleansed with peroxide and dressed with 4x4 and cling Q8H Podiatry will continue to follow patient in house Plan for left hallux lateral border matrixectomy in OR for Sunday at 11:00am Pt currently scheduled for christine cath insertion with Dr. Alicia on Sunday Will continue to monitor patient while in house
--- NOTE | 2017-08-18 13:30 | CARD ---
APPROVED REPORT EXAM: Two-dimensional and M-mode echocardiogram with Doppler and color Doppler. Other Information Quality : GoodRhythm : INDICATION Dyspnea Congestive Heart Failure fever RISK FACTORS Hypertension Hyperlipidemia Diabetes M-Mode DIMENSIONS RVDd1.99 (2.1-3.2cm)Left Atrium (MM)4.37 (2.5-4.0cm) IVSd1.44 (0.7-1.1cm)Aortic Root2.81 (2.2-3.7cm) LVDd5.35 (4.0-5.6cm)Aortic Cusp Exc.1.44 (1.5-2.0cm) PWd1.29 (0.7-1.1cm)FS (%) 27 % LVDs3.90 (2.0-3.8cm)LVEF (%)52 (>50%) Mitral Valve MV E Zknkgcpy964.0cm/sMV A Zqlvtuje20.7cm/sE/A ratio1.3 TDI E/Lateral E'0.0E/Medial E'0.0 Tricuspid Valve TR Peak [id number]/sTR Peak Gr.[id number] LEFT VENTRICLE The Left Ventricle is borderline dilated. There is mild to moderate concentric left ventricular hypertrophy. The left ventricular systolic function is at low level of normal to marginally decreased. The left ventricular ejection fraction is within the normal range. There is normal LV segmental wall motion. Transmitral Doppler flow pattern is Grade II-pseudonormal filling dynamics. Elevated left atrial pressure by Tissue Doppler. RIGHT VENTRICLE The right ventricle is normal size. The right ventricular systolic function is normal. ATRIA The left atrium is mildly dilated. The right atrium size is normal. The interatrial septum is intact with no evidence for an atrial septal defect. AORTIC VALVE The aortic valve is normal in structure. No aortic regurgitation is present. MITRAL VALVE The mitral valve is normal in structure. There is no mitral valve regurgitation noted. TRICUSPID VALVE There is mild to moderate tricuspid regurgitation. Right ventricular systolic pressure is estimated at - 35 - 40 mmHg. There is mild pulmonary hypertension. PULMONIC VALVE The pulmonary valve is normal in structure. GREAT VESSELS The aortic root is normal in size. The IVC is normal in size and collapses >50% with inspiration. PERICARDIAL EFFUSION There is a trace pericardial effusion. <Conclusion> There is mild to moderate concentric left ventricular hypertrophy. The left ventricular systolic function is at low level of normal to marginally decreased. No segmental wall motion abnormality. Diastolic dysfunction Grade II-pseudonormal filling dynamics. Elevated left atrial pressure by Tissue Doppler. The right ventricular systolic function is normal. Right ventricular systolic pressure is estimated at - 35 - 40 mmHg compatible with mild pulmonary hypertension. There is a trace pericardial effusion.
[2017-08-18] MEDS ORDERED: DiphenhydrAMINE 50 mg/ml Inj IVP ONE (14:25)
--- NOTE | 2017-08-18 15:50 | CP.PCM.PN ---
Subjective - Date & Time of Evaluation Date of Evaluation: 08/18/17 Time of Evaluation: 10:20 - Subjective Subjective: clinically same Objective - Vital Signs/Intake and Output Vital Signs (last 24 hours): Temp Pulse Resp BP Pulse Ox 97.5 F L 80 20 181/68 H 100 08/18/17 08:52 08/18/17 08:52 08/18/17 08:52 08/18/17 08:52 08/18/17 08:52 Intake and Output: 08/18/17 08/18/17 06:59 18:59 Intake Total 200 280 Balance 200 280 - Medications Medications: Current Medications Betamethasone/Clotrimazole (Lotrisone) 0 gm TOP BID [facility] Stop: 08/25/17 10:01 Last Admin: 08/18/17 10:48 Dose: Not Given Calcium Acetate (Phoslo) 667 mg PO TID [facility] Last Admin: 08/18/17 14:09 Dose: Not Given Clonidine HCl (Catapres) 0.3 mg PO BID [facility] Last Admin: 08/18/17 10:47 Dose: Not Given Diphenhydramine HCl (Benadryl) 25 mg IVP Q3 PRN PRN Reason: for itching Last Admin: 08/18/17 12:44 Dose: 25 mg Ergocalciferol (Drisdol 50,000 Intl Units Cap) 1 cap PO Q7D [facility] Last Admin: 08/17/17 12:15 Dose: Not Given Gabapentin (Neurontin) 300 mg PO BID [facility] Last Admin: 08/18/17 09:44 Dose: 300 mg Heparin Sodium (Porcine) (Heparin) 5,000 units SC Q12 [facility] Last Admin: 08/18/17 09:52 Dose: Not Given Hydromorphone HCl (Dilaudid) 2 mg IVP Q3 PRN PRN Reason: Pain, severe (8-10) Last Admin: 08/18/17 12:44 Dose: 2 mg Insulin Detemir (Levemir) 12 unit SC Q12 [facility] Last Admin: 08/18/17 09:44 Dose: 12 unit Insulin Human Regular (Novolin R) 0 unit SC ACHS [facility] PRN Reason: Protocol Last Admin: 08/18/17 12:30 Dose: 6 unit Metoclopramide HCl (Reglan) 10 mg IVP DAILY PRN PRN Reason: Nausea/Vomiting Metronidazole (Flagyl) 250 mg PO Q8H [facility] Stop: 08/24/17 17:46 Last Admin: 08/18/17 09:44 Dose: 250 mg Nifedipine (Procardia Xl) 30 mg PO DAILY [facility] Last Admin: 08/18/17 10:48 Dose: Not Given Pantoprazole Sodium (Protonix Ec Tab) 40 mg PO DAILY [facility] Last Admin: 08/18/17 09:44 Dose: 40 mg Vitamin B Complex/Vit C/Folic Acid (Nephro-Vamshi) 1 tab PO 0800 [facility] Last Admin: 08/18/17 08:21 Dose: 1 tab - Labs Labs: 08/16/17 17:58 08/16/17 17:58
[2017-08-19] MEDS: DiphenhydrAMINE 50 mg/ml Inj IVP PRN ×2 (01:18→05:52)
[2017-08-19] MEDS: (Novolin R) Insulin Human Regular 100 units/ml vial SC SCH ×5 (02:23→21:51)
[2017-08-19] MEDS ORDERED: Dextrose 50% SYRINGE Inj (50 ml) IV PRN (08:09)
[2017-08-19] MEDS ORDERED: Glucagon Recombinant 1 mg Inj IM PRN (08:09)
[2017-08-19] MEDS: Insulin Detemir 100 units/ml Vial (Levemir) SC SCH ×2 (09:10→21:50)
--- NOTE | 2017-08-19 09:21 | CP.PCM.PN ---
Subjective - Date & Time of Evaluation Date of Evaluation: 08/19/17 Time of Evaluation: 07:45 - Subjective Subjective: Vascular Surgery Dr. Alicia Pt S&E @bedside. NAEO. Pt has no complaints. Pt states she wants to wean off narcotics. Pt depressed an crying, requesting psychiatry to come see her. Objective - Vital Signs/Intake and Output Vital Signs (last 24 hours): Temp Pulse Resp BP Pulse Ox 98 F 92 H 20 207/112 H 99 08/18/17 23:38 08/19/17 01:06 08/18/17 23:38 08/18/17 23:38 08/18/17 23:38 - Medications Medications: Current Medications Betamethasone/Clotrimazole (Lotrisone) 0 gm TOP BID [facility] Stop: 08/25/17 10:01 Last Admin: 08/18/17 18:18 Dose: Not Given Calcium Acetate (Phoslo) 667 mg PO TID [facility] Last Admin: 08/18/17 18:21 Dose: 667 mg Clonidine HCl (Catapres) 0.3 mg PO BID [facility] Last Admin: 08/18/17 18:16 Dose: 0.3 mg Dextrose (Dextrose 50% Inj) 0 ml IV STAT PRN; Protocol PRN Reason: Hypoglycemia Protocol Dextrose (Glutose 15) 15 gm PO ONCE PRN; Protocol PRN Reason: Hypoglycemia Protocol Last Admin: 08/19/17 08:20 Dose: 15 gm Diphenhydramine HCl (Benadryl) 25 mg IVP Q3 PRN PRN Reason: for itching Last Admin: 08/19/17 05:52 Dose: 25 mg Ergocalciferol (Drisdol 50,000 Intl Units Cap) 1 cap PO Q7D [facility] Last Admin: 08/17/17 12:15 Dose: Not Given Gabapentin (Neurontin) 300 mg PO BID [facility] Last Admin: 08/18/17 18:21 Dose: 300 mg Glucagon (Glucagen Diagnostic Kit) 1 mg IM STAT PRN; Protocol PRN Reason: Hypoglycemia Protocol Heparin Sodium (Porcine) (Heparin) 5,000 units SC Q12 [facility] Last Admin: 08/18/17 22:19 Dose: Not Given Hydromorphone HCl (Dilaudid) 2 mg IVP Q3 PRN PRN Reason: Pain, severe (8-10) Last Admin: 08/19/17 05:52 Dose: 2 mg Dextrose (Dextrose 5% In Water 1000 Ml) 1,000 mls @ 0 mls/hr IV .Q0M PRN; Protocol; Per Protocol PRN Reason: Hypoglycemia Protocol Insulin Detemir (Levemir) 12 unit SC Q12 [facility] Last Admin: 08/19/17 09:10 Dose: Not Given Insulin Human Regular (Novolin R) 0 unit SC ACHS [facility] PRN Reason: Protocol Last Admin: 08/19/17 07:10 Dose: Not Given Metoclopramide HCl (Reglan) 10 mg IVP DAILY PRN PRN Reason: Nausea/Vomiting Metronidazole (Flagyl) 250 mg PO Q8H [facility] Stop: 08/24/17 17:46 Last Admin: 08/19/17 01:23 Dose: 250 mg Nifedipine (Procardia Xl) 30 mg PO DAILY [facility] Last Admin: 08/18/17 10:48 Dose: Not Given Pantoprazole Sodium (Protonix Ec Tab) 40 mg PO DAILY [facility] Last Admin: 08/18/17 09:44 Dose: 40 mg Vitamin B Complex/Vit C/Folic Acid (Nephro-Vamshi) 1 tab PO 0800 [facility] Last Admin: 08/18/17 08:21 Dose: 1 tab - Labs Labs: 08/16/17 17:58 08/16/17 17:58 - Constitutional Appears: Non-toxic, No Acute Distress - Head Exam Head Exam: NORMAL INSPECTION - Eye Exam Eye Exam: Normal appearance - ENT Exam ENT Exam: Mucous Membranes Moist - Neck Exam Additional comments: multiple scars present above and below clavicles B/L - Respiratory Exam Respiratory Exam: NORMAL BREATHING PATTERN. 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 Santos - f/u cardiology recs - cont medical management Pt discussed w/ Dr. Ravin Riggs DO PGY2
[2017-08-19] MEDS: Pantoprazole 40 mg EC Tab PO SCH (09:44)
[2017-08-19] MEDS: Clotrimazole/Betamethasone Cream(15 gm) TOP SCH ×3 (09:44→22:57)
[2017-08-19] MEDS: NIFEdipine 30 mg ER Tab PO SCH (09:44)
[2017-08-19] MEDS: Multivitamin Vitamin B Complex (Nephro-Vite) Tab PO SCH (09:44)
--- NOTE | 2017-08-19 09:50 | CP.PCM.CON ---
History of Present Illness - History of Present Illness History of Present Illness: Patient seen and evaluated Consulted for SBP more than 200 Patient senies cardiac symptoms Recent cardiac cath : Non obstructive coronaries Now BP around 150/90 Continue all meds CKD on HD Past Patient History - Infectious Disease Hx of Infectious Diseases: None - Tetanus Immunizations Tetanus Immunization: Unknown - Past Medical History & Family History Past Medical History?: Yes - Past Social History Smoking Status: Never Smoked - CARDIAC Hx Congestive Heart Failure: Yes Hx Hypercholesterolemia: Yes Hx Hypertension: Yes Hx Peripheral Edema: Yes - PULMONARY Hx Asthma: Yes Hx Bronchitis: Yes Hx Pneumonia: Yes Hx Sleep Apnea: Yes - NEUROLOGICAL Hx Seizures: Yes - HEENT Hx HEENT Problems: Yes Hx Cataracts: Yes Hx Glaucoma: Yes - RENAL Hx Chronic Kidney Disease: Yes Hx Dialysis: Yes Hx Kidney Stones: Yes Hx Renal Failure: Yes (esrd ) - ENDOCRINE/METABOLIC Hx Diabetes Mellitus Type 1: Yes (since age 11) Hx Hyperthyroidism: Yes Hx Hypothyroidism: Yes - HEMATOLOGICAL/ONCOLOGICAL Hx Anemia: Yes - INTEGUMENTARY Hx Dermatological Problems: Yes Other/Comment: DRY ITCHY SKIN ;multiple/generalized dark spots on skin. left toe blister - MUSCULOSKELETAL/RHEUMATOLOGICAL Hx Fractures: Yes (Sep 2012 L foot) - GASTROINTESTINAL Hx Gall Bladder Disease: Yes (gallbladder removed) Hx Gastritis: Yes Hx Pancreatitis: Yes (chronic) - PSYCHIATRIC Hx Anxiety: Yes Hx Substance Use: No - SURGICAL HISTORY Hx Cholecystectomy: Yes Hx Coronary Stent: Yes - ANESTHESIA Hx Anesthesia: Yes Hx Anesthesia Reactions: No Hx Malignant Hyperthermia: No Meds Allergies/Adverse Reactions: Allergies Allergy/AdvReac Type Severity Reaction Status Date / Time ketorolac tromethamine Allergy RASH Verified 08/16/17 17:16 [From Toradol] latex Allergy RASH Verified 08/16/17 17:16 morphine Allergy RASH Verified 08/16/17 17:16 tramadol Allergy RASH Verified 08/16/17 17:16 - Medications Medications: Current Medications Betamethasone/Clotrimazole (Lotrisone) 0 gm TOP BID [facility] Stop: 08/25/17 10:01 Last Admin: 08/19/17 09:44 Dose: 1 applic Calcium Acetate (Phoslo) 667 mg PO TID [facility] Last Admin: 08/19/17 09:44 Dose: 667 mg Clonidine HCl (Catapres) 0.3 mg PO BID [facility] Last Admin: 08/19/17 09:44 Dose: 0.3 mg Dextrose (Dextrose 50% Inj) 0 ml IV STAT PRN; Protocol PRN Reason: Hypoglycemia Protocol Dextrose (Glutose 15) 15 gm PO ONCE PRN; Protocol PRN Reason: Hypoglycemia Protocol Last Admin: 08/19/17 08:20 Dose: 15 gm Diphenhydramine HCl (Benadryl) 25 mg IVP Q3 PRN PRN Reason: for itching Last Admin: 08/19/17 05:52 Dose: 25 mg Ergocalciferol (Drisdol 50,000 Intl Units Cap) 1 cap PO Q7D [facility] Last Admin: 08/17/17 12:15 Dose: Not Given Gabapentin (Neurontin) 300 mg PO BID [facility] Last Admin: 08/19/17 09:44 Dose: 300 mg Glucagon (Glucagen Diagnostic Kit) 1 mg IM STAT PRN; Protocol PRN Reason: Hypoglycemia Protocol Heparin Sodium (Porcine) (Heparin) 5,000 units SC Q12 [facility] Last Admin: 08/18/17 22:19 Dose: Not Given Hydromorphone HCl (Dilaudid) 2 mg IVP Q3 PRN PRN Reason: Pain, severe (8-10) Last Admin: 08/19/17 05:52 Dose: 2 mg Dextrose (Dextrose 5% In Water 1000 Ml) 1,000 mls @ 0 mls/hr IV .Q0M PRN; Protocol; Per Protocol PRN Reason: Hypoglycemia Protocol Insulin Detemir (Levemir) 12 unit SC Q12 [facility] Last Admin: 08/19/17 09:10 Dose: Not Given Insulin Human Regular (Novolin R) 0 unit SC ACHS [facility] PRN Reason: Protocol Last Admin: 08/19/17 07:10 Dose: Not Given Metoclopramide HCl (Reglan) 10 mg IVP DAILY PRN PRN Reason: Nausea/Vomiting Metronidazole (Flagyl) 250 mg PO Q8H [facility] Stop: 08/24/17 17:46 Last Admin: 08/19/17 09:44 Dose: 250 mg Nifedipine (Procardia Xl) 30 mg PO DAILY [facility] Last Admin: 08/19/17 09:44 Dose: 30 mg Pantoprazole Sodium (Protonix Ec Tab) 40 mg PO DAILY [facility] Last Admin: 08/19/17 09:44 Dose: 40 mg Vitamin B Complex/Vit C/Folic Acid (Nephro-Vamshi) 1 tab PO 0800 [facility] Last Admin: 08/19/17 09:44 Dose: 1 tab Results - Vital Signs Recent Vital Signs: Last Vital Signs Temp 98 F 08/18/17 23:38 Pulse 92 H 08/19/17 01:06 Resp 20 08/18/17 23:38 BP 207/112 H 08/18/17 23:38 Pulse Ox 99 08/18/17 23:38 - Labs Result Diagrams: 08/16/17 17:58 08/16/17 17:58 Labs: Laboratory Results - last 24 hr 08/18/17 08/18/17 08/18/17 11:42 14:31 21:08 ESR 64 H POC Glucose (mg/dL) 261 H 130 H 08/19/17 08/19/17 08/19/17 02:18 06:31 08:05 ESR POC Glucose (mg/dL) 443 H* 124 H 31 L* 08/19/17 08/19/17 08:06 08:37 ESR POC Glucose (mg/dL) 32 L* 79
--- NOTE | 2017-08-19 09:51 | CP.PCM.PN ---
Subjective - Date & Time of Evaluation Date of Evaluation: 08/18/17 Time of Evaluation: 17:30 - Subjective Subjective: Patient seen and evaluated Consulted for SBP more than 200 Patient senies cardiac symptoms Recent cardiac cath : Non obstructive coronaries Now BP much better Continue all meds CKD on HD Patient low risk for cardiac events Keep BP less than 140/80 Objective - Vital Signs/Intake and Output Vital Signs (last 24 hours): Temp Pulse Resp BP Pulse Ox 98 F 92 H 20 207/112 H 99 08/18/17 23:38 08/19/17 01:06 08/18/17 23:38 08/18/17 23:38 08/18/17 23:38 - Medications Medications: Current Medications Betamethasone/Clotrimazole (Lotrisone) 0 gm TOP BID [facility] Stop: 08/25/17 10:01 Last Admin: 08/19/17 09:44 Dose: 1 applic Calcium Acetate (Phoslo) 667 mg PO TID [facility] Last Admin: 08/19/17 09:44 Dose: 667 mg Clonidine HCl (Catapres) 0.3 mg PO BID [facility] Last Admin: 08/19/17 09:44 Dose: 0.3 mg Dextrose (Dextrose 50% Inj) 0 ml IV STAT PRN; Protocol PRN Reason: Hypoglycemia Protocol Dextrose (Glutose 15) 15 gm PO ONCE PRN; Protocol PRN Reason: Hypoglycemia Protocol Last Admin: 08/19/17 08:20 Dose: 15 gm Diphenhydramine HCl (Benadryl) 25 mg IVP Q3 PRN PRN Reason: for itching Last Admin: 08/19/17 05:52 Dose: 25 mg Ergocalciferol (Drisdol 50,000 Intl Units Cap) 1 cap PO Q7D [facility] Last Admin: 08/17/17 12:15 Dose: Not Given Gabapentin (Neurontin) 300 mg PO BID [facility] Last Admin: 08/19/17 09:44 Dose: 300 mg Glucagon (Glucagen Diagnostic Kit) 1 mg IM STAT PRN; Protocol PRN Reason: Hypoglycemia Protocol Heparin Sodium (Porcine) (Heparin) 5,000 units SC Q12 [facility] Last Admin: 08/18/17 22:19 Dose: Not Given Hydromorphone HCl (Dilaudid) 2 mg IVP Q3 PRN PRN Reason: Pain, severe (8-10) Last Admin: 08/19/17 05:52 Dose: 2 mg Dextrose (Dextrose 5% In Water 1000 Ml) 1,000 mls @ 0 mls/hr IV .Q0M PRN; Protocol; Per Protocol PRN Reason: Hypoglycemia Protocol Insulin Detemir (Levemir) 12 unit SC Q12 [facility] Last Admin: 08/19/17 09:10 Dose: Not Given Insulin Human Regular (Novolin R) 0 unit SC ACHS [facility] PRN Reason: Protocol Last Admin: 08/19/17 07:10 Dose: Not Given Metoclopramide HCl (Reglan) 10 mg IVP DAILY PRN PRN Reason: Nausea/Vomiting Metronidazole (Flagyl) 250 mg PO Q8H [facility] Stop: 08/24/17 17:46 Last Admin: 08/19/17 09:44 Dose: 250 mg Nifedipine (Procardia Xl) 30 mg PO DAILY [facility] Last Admin: 08/19/17 09:44 Dose: 30 mg Pantoprazole Sodium (Protonix Ec Tab) 40 mg PO DAILY [facility] Last Admin: 08/19/17 09:44 Dose: 40 mg Vitamin B Complex/Vit C/Folic Acid (Nephro-Vamshi) 1 tab PO 0800 [facility] Last Admin: 08/19/17 09:44 Dose: 1 tab - Labs Labs: 08/16/17 17:58 08/16/17 17:58
--- NOTE | 2017-08-19 12:24 | CP.PCM.PN ---
Subjective - Date & Time of Evaluation Date of Evaluation: 08/19/17 Time of Evaluation: 12:23 - Subjective Subjective: 31 y/o female pt seen at bedside this morning for painful 3rd digits and lateral hallucal nail border of left foot, 1 month s/p 3rd digit total nail avulsion and left hallux partial nail avulsion. Patient says her pain is well managed with meds at this time. Denies noticing any drainage from the toes or any redness or swelling. Patient denies having any other pedal complaints. She denies F/C/N/V/CP/SOB. Objective - Vital Signs/Intake and Output Vital Signs (last 24 hours): Temp Pulse Resp BP Pulse Ox 98 F 92 H 20 207/112 H 99 08/18/17 23:38 08/19/17 01:06 08/18/17 23:38 08/18/17 23:38 08/18/17 23:38 - Medications Medications: Current Medications Betamethasone/Clotrimazole (Lotrisone) 0 gm TOP BID [facility] Stop: 08/25/17 10:01 Last Admin: 08/19/17 09:44 Dose: 1 applic Calcium Acetate (Phoslo) 667 mg PO TID [facility] Last Admin: 08/19/17 09:44 Dose: 667 mg Clonidine HCl (Catapres) 0.3 mg PO BID [facility] Last Admin: 08/19/17 09:44 Dose: 0.3 mg Dextrose (Dextrose 50% Inj) 0 ml IV STAT PRN; Protocol PRN Reason: Hypoglycemia Protocol Dextrose (Glutose 15) 15 gm PO ONCE PRN; Protocol PRN Reason: Hypoglycemia Protocol Last Admin: 08/19/17 08:20 Dose: 15 gm Diphenhydramine HCl (Benadryl) 25 mg IVP Q3 PRN PRN Reason: for itching Last Admin: 08/19/17 05:52 Dose: 25 mg Ergocalciferol (Drisdol 50,000 Intl Units Cap) 1 cap PO Q7D [facility] Last Admin: 08/17/17 12:15 Dose: Not Given Gabapentin (Neurontin) 300 mg PO BID [facility] Last Admin: 08/19/17 09:44 Dose: 300 mg Glucagon (Glucagen Diagnostic Kit) 1 mg IM STAT PRN; Protocol PRN Reason: Hypoglycemia Protocol Heparin Sodium (Porcine) (Heparin) 5,000 units SC Q12 [facility] Last Admin: 08/18/17 22:19 Dose: Not Given Hydromorphone HCl (Dilaudid) 2 mg IVP Q3 PRN PRN Reason: Pain, severe (8-10) Last Admin: 08/19/17 05:52 Dose: 2 mg Dextrose (Dextrose 5% In Water 1000 Ml) 1,000 mls @ 0 mls/hr IV .Q0M PRN; Protocol; Per Protocol PRN Reason: Hypoglycemia Protocol Insulin Detemir (Levemir) 12 unit SC Q12 [facility] Last Admin: 08/19/17 09:10 Dose: Not Given Insulin Human Regular (Novolin R) 0 unit SC ACHS [facility] PRN Reason: Protocol Last Admin: 08/19/17 07:10 Dose: Not Given Metoclopramide HCl (Reglan) 10 mg IVP DAILY PRN PRN Reason: Nausea/Vomiting Metronidazole (Flagyl) 250 mg PO Q8H [facility] Stop: 08/24/17 17:46 Last Admin: 08/19/17 09:44 Dose: 250 mg Nifedipine (Procardia Xl) 30 mg PO DAILY [facility] Last Admin: 08/19/17 09:44 Dose: 30 mg Pantoprazole Sodium (Protonix Ec Tab) 40 mg PO DAILY [facility] Last Admin: 08/19/17 09:44 Dose: 40 mg Vitamin B Complex/Vit C/Folic Acid (Nephro-Vamshi) 1 tab PO 0800 [facility] Last Admin: 08/19/17 09:44 Dose: 1 tab - Labs Labs: 08/16/17 17:58 08/16/17 17:58 - Constitutional Appears: Well, Non-toxic, No Acute Distress - Extremities Exam Additional comments: Bilateral lower extremity exam Vasc: DP and PT pulses palpable 2/4 bilaterally, GRAIN TRIMMER less than 3 seconds to all digits bilaterally, mild localized non-pitting edema noted to the 3rd digits bilaterally DERM: Left: Small open wound noted to Left 3rd digit distal aspect at the site of nail avulsion measuring 0.3cm x 0.3cm x 0.2cm with mild erythema around the site of nail avulsion. No Probe to bone. No drainage is noted. No malodor is noted. No sign of acute infection is noted. Right:No open wound is noted to the right 3rd digit. No drainage is noted. Mild erythema is noted to the right 3rd digit. No sign of acute infection is noted. No malodor is noted. Ortho: tenderness noted to the 3rd digit nail beds B/L. Mild tenderness to left hallux at lateral nail border Neuro: gross sensation intact - Neurological Exam Neurological Exam: Alert, Awake, Oriented x3 - Psychiatric Exam Psychiatric exam: Normal Affect, Normal Mood Assessment and Plan - Assessment and Plan (Free Text) Assessment: Assessment: 31 year old female patient 1 month s/p bilateral 3rd digit total nail avulsion and left great toe partial nail avulsion, well healing but residual pain to left hallucal lateral nail border and bilateral 3rd digit toenails Plan: Patient examined and evaluated at bedside Discussed in detail with attending Dr. Tilley Charts, labs, vitals reviewed -afebrile, NNL today Surgical incisions cleansed with peroxide and dressed with DSD Surgical site to be cleansed with peroxide and dressed with 4x4 and kerlix Q8H Podiatry will continue to follow patient in house Plan for left hallux lateral border matrixectomy in OR for Sunday at 11:00am Pt currently scheduled for christine cath insertion with Dr. Alicia on Sunday as add on- will combine with Dr. Alicia and have both procedures performed simultaneously Will continue to monitor patient while in house
[2017-08-19] MEDS ORDERED: DiphenhydrAMINE 50 mg/ml Inj IM STA (16:31)
--- NOTE | 2017-08-19 17:27 | CP.PCM.CON ---
History of Present Illness - History of Present Illness History of Present Illness: 31 y/o female pt seen at bedside this morning for painful 3rd digits and lateral hallucal nail border of left foot, 1 month s/p 3rd digit total nail avulsion and left hallux partial nail avulsion. Patient says her pain is well managed with meds at this time. Denies noticing any drainage from the toes or any redness or swelling. Patient denies having any other pedal complaints. She denies F/C/N/V/CP/SOB. Review of Systems - Review of Systems All systems: reviewed and no additional remarkable complaints except - Constitutional Constitutional: As Per HPI - EENT Eyes: absent: As Per HPI, Blind Spots, Blurred Vision, Change in Vision, Decreased Night Vision, Diplopia, Discharge, Dry Eye, Exophthalmos, Floaters, Irritation, Itchy Eyes, Loss of Peripheral Vision, Pain, Photophobia, Requires Corrective Lenses, Sees Flashes, Spots in Vision, Tunnel Vision, Other Visual Disturbances, Loss of Vision, Other Ears: absent: As Per HPI, Decreased Hearing, Ear Discharge, Ear Pain, Tinnitus, Abnormal Hearing, Disequilibrium, Dizziness, Other Nose/Mouth/Throat: absent: As Per HPI, Epistaxis, Nasal Congestion, Nasal Discharge, Nasal Obstruction, Nasal Trauma, Nose Pain, Post Nasal Drip, Sinus Pain, Sinus Pressure, Bleeding Gums, Change in Voice, Dental Pain, Dry Mouth, Dysphagia, Halitosis, Hoarsness, Lip Swelling, Mouth Lesions, Mouth Pain, Odynophagia, Sore Throat, Throat Swelling, Tongue Swelling, Facial Pain, Neck Pain, Neck Mass, Other - Breasts Breasts: absent: As Per HPI, Change in Shape, Mass, Pain, Nipple Discharge, Nipple Inversion, Skin Changes, Swelling, Other - Cardiovascular Cardiovascular: absent: As Per HPI, Acrocyanosis, Chest Pain, Chest Pain at Rest , Chest Pain with Activity, Claudication, Diaphoresis, Dyspnea, Dyspnea on Exertion, Edema, Irregular Heart Rhythm, Pain Radiating to Arm/Neck/Jaw, Leg Edema, Leg Ulcers, Lightheadedness, Orthopnea, Palpitations, Paroxysmal Nocturnal Dyspnea, Pedal Edema, Radiating Pain, Rapid Heart Rate, Slow Heart Rate, Syncope, Other - Respiratory Respiratory: absent: As Per HPI, Cough, Dyspnea, Hemoptysis, Dyspnea on Exertion , Wheezing, Snoring, Stridor, Pain on Inspiration, Chest Congestion, Excessive Mucous Production, Change in Mucous Color, Pain with Coughing, Other - Gastrointestinal Gastrointestinal: absent: As Per HPI, Abdominal Pain, Belching, Bloating, Change in Bowel Habits, Change in Stool Character, Coffee Ground Emesis, Constipation, Cramping, Diarrhea, Dyspepsia, Dysphagia, Early Satiety, Excessive Flatus, Fecal Incontinence, Heartburn, Hematemesis, Hematochezia, Loose Stools, Melena, Nausea, Odynophagia, Temesmus, Vomiting, Other - Genitourinary Genitourinary: absent: As Per HPI, Change in Urinary Stream, Difficulty Urinating, Dysuria, Flank Pain, Hematuria, Pyuria, Nocturia, Urinary Incontinence, Urinary Frequency, Urinary Hesitance, Urinary Urgency, Voiding Freq/Small Amts, Freq UTI, Hx Renal/Bladder Calculi, Hx /Renal Surgery, Bladder Distension, Other - Reproductive: Female Reproductive:Female: absent: As Per HPI, Amenorrhea, Amenorrhea/ Control, Currently Menstual, Cycle <21 Days, Cycle >35 Days, Cycle Variable, Menses 1-7 Days, Menses >/= 8 Days, Menses Variable, Cycle > 4 Weeks Between, No Menses for 6 Months, Heavy Menses, Light Menses, Normal Menses, Spotting Between Cycles , S/P Hysterectomy, Menopausal, Post Menopausal, Premenarche, Abnormal Vaginal Bleeding, Dysmenorrhea, Dyspareunia, Genital Lesions, Genital Pruritis, Pelvic Pain, Prolapse Symptoms, Sexual Dysfunction, Vaginal Discharge, Vaginal Dryness , Vaginal Odor, Vaginal Pruritis, Other - Menstruation Menstruation: absent: As Per HPI, Amenorrhea, Amenorrhea/ Control, Currently Menstual, Cycle <21 Days, Cycle >35 Days, Cycle Variable, Menses 1-7 Days, Menses >/= 8 Days, Menses Variable, Cycle > 4 Weeks Between, No Menses for 6 Months, Heavy Menses, Light Menses, Normal Menses, Spotting Between Cycles , S/P Hysterectomy, Menopausal, Post Menopausal, Premenarche, Abnormal Vaginal Bleeding, Dysmenorrhea, Other - Musculoskeletal Musculoskeletal: As Per HPI - Integumentary Integumentary: As Per HPI, Skin Pain, Wounds - Neurological Neurological: As Per HPI - Psychiatric Psychiatric: absent: As Per HPI, Abnormal Sleep Pattern, Anhedonia, Anxiety, Auditory Hallucinations, Behavioral Changes, Change in Appetite, Change in Libido, Confusion, Depression, Difficulty Concentrating, Hallucinations, Homicidal Ideation, Hopelessness, Irritability, Memory Loss, Mood Swings, Panic Attacks, Paranoia, Suicidal Ideation, Visual Hallucinations, Tactile Hallucinations, Other - Hematologic/Lymphatic Hematologic: absent: As Per HPI, Easy Bleeding, Easy Bruising, Lymphadenopathy, Other Past Patient History - Infectious Disease Hx of Infectious Diseases: None - Tetanus Immunizations Tetanus Immunization: Unknown - Past Medical History & Family History Past Medical History?: Yes - Past Social History Smoking Status: Never Smoked - CARDIAC Hx Congestive Heart Failure: Yes Hx Hypercholesterolemia: Yes Hx Hypertension: Yes Hx Peripheral Edema: Yes - PULMONARY Hx Asthma: Yes Hx Bronchitis: Yes Hx Pneumonia: Yes Hx Sleep Apnea: Yes - NEUROLOGICAL Hx Seizures: Yes - HEENT Hx HEENT Problems: Yes Hx Cataracts: Yes Hx Glaucoma: Yes - RENAL Hx Chronic Kidney Disease: Yes Hx Dialysis: Yes Hx Kidney Stones: Yes Hx Renal Failure: Yes (esrd ) - ENDOCRINE/METABOLIC Hx Diabetes Mellitus Type 1: Yes (since age 11) Hx Hyperthyroidism: Yes Hx Hypothyroidism: Yes - HEMATOLOGICAL/ONCOLOGICAL Hx Anemia: Yes - INTEGUMENTARY Hx Dermatological Problems: Yes Other/Comment: DRY ITCHY SKIN ;multiple/generalized dark spots on skin. left toe blister - MUSCULOSKELETAL/RHEUMATOLOGICAL Hx Falls: No Hx Fractures: Yes (Sep 2012 L foot) - GASTROINTESTINAL Hx Gall Bladder Disease: Yes (gallbladder removed) Hx Gastritis: Yes Hx Pancreatitis: Yes (chronic) - PSYCHIATRIC Hx Anxiety: Yes Hx Substance Use: No - SURGICAL HISTORY Hx Cholecystectomy: Yes Hx Coronary Stent: Yes - ANESTHESIA Hx Anesthesia: Yes Hx Anesthesia Reactions: No Hx Malignant Hyperthermia: No Meds Allergies/Adverse Reactions: Allergies Allergy/AdvReac Type Severity Reaction Status Date / Time ketorolac tromethamine Allergy RASH Verified 08/16/17 17:16 [From Toradol] latex Allergy RASH Verified 08/16/17 17:16 morphine Allergy RASH Verified 08/16/17 17:16 tramadol Allergy RASH Verified 08/16/17 17:16 - Medications Medications: Current Medications Betamethasone/Clotrimazole (Lotrisone) 0 gm TOP BID [facility] Stop: 08/25/17 10:01 Last Admin: 08/19/17 09:44 Dose: 1 applic Calcium Acetate (Phoslo) 667 mg PO TID [facility] Last Admin: 08/19/17 14:42 Dose: Not Given Clonidine HCl (Catapres) 0.3 mg PO BID [facility] Last Admin: 08/19/17 09:44 Dose: 0.3 mg Dextrose (Dextrose 50% Inj) 0 ml IV STAT PRN; Protocol PRN Reason: Hypoglycemia Protocol Dextrose (Glutose 15) 15 gm PO ONCE PRN; Protocol PRN Reason: Hypoglycemia Protocol Last Admin: 08/19/17 08:20 Dose: 15 gm Diphenhydramine HCl (Benadryl) 25 mg IVP Q3 PRN PRN Reason: for itching Last Admin: 08/19/17 05:52 Dose: 25 mg Ergocalciferol (Drisdol 50,000 Intl Units Cap) 1 cap PO Q7D [facility] Last Admin: 08/17/17 12:15 Dose: Not Given Gabapentin (Neurontin) 300 mg PO BID [facility] Last Admin: 08/19/17 09:44 Dose: 300 mg Glucagon (Glucagen Diagnostic Kit) 1 mg IM STAT PRN; Protocol PRN Reason: Hypoglycemia Protocol Heparin Sodium (Porcine) (Heparin) 5,000 units SC Q12 [facility] Last Admin: 08/19/17 09:44 Dose: Not Given Hydromorphone HCl (Dilaudid) 2 mg IVP Q3 PRN PRN Reason: Pain, severe (8-10) Last Admin: 08/19/17 05:52 Dose: 2 mg Dextrose (Dextrose 5% In Water 1000 Ml) 1,000 mls @ 0 mls/hr IV .Q0M PRN; Protocol; Per Protocol PRN Reason: Hypoglycemia Protocol Insulin Detemir (Levemir) 12 unit SC Q12 [facility] Last Admin: 08/19/17 09:10 Dose: Not Given Insulin Human Regular (Novolin R) 0 unit SC ACHS [facility] PRN Reason: Protocol Last Admin: 08/19/17 12:30 Dose: Not Given Metoclopramide HCl (Reglan) 10 mg IVP DAILY PRN PRN Reason: Nausea/Vomiting Metronidazole (Flagyl) 250 mg PO Q8H [facility] Stop: 08/24/17 17:46 Last Admin: 08/19/17 09:44 Dose: 250 mg Nifedipine (Procardia Xl) 30 mg PO DAILY [facility] Last Admin: 08/19/17 09:44 Dose: 30 mg Pantoprazole Sodium (Protonix Ec Tab) 40 mg PO DAILY [facility] Last Admin: 08/19/17 09:44 Dose: 40 mg Vitamin B Complex/Vit C/Folic Acid (Nephro-Vamshi) 1 tab PO 0800 [facility] Last Admin: 08/19/17 09:44 Dose: 1 tab Physical Exam - Constitutional Appears: Non-toxic, Chronically Ill - Head Exam Head Exam: NORMOCEPHALIC - Eye Exam Eye Exam: PERRL - ENT Exam ENT Exam: Mucous Membranes Dry - Neck Exam Neck exam: Negative for: Lymphadenopathy - Respiratory Exam Respiratory Exam: Decreased Breath Sounds - Cardiovascular Exam Cardiovascular Exam: REGULAR RHYTHM - GI/Abdominal Exam GI & Abdominal Exam: Diminished Bowel Sounds, Soft. 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 No Probe to bone. No drainage is noted. No malodor is noted. No sign of acute infection is noted. Right:No open wound is noted to the right 3rd digit. No drainage is noted. Mild erythema is noted to the right 3rd digit. No sign of acute infection is noted. No malodor is noted. Ortho: tenderness noted to the 3rd digit nail beds B/L. Mild tenderness to left hallux at lateral nail border Neuro: gross sensation intact - Back Exam Back exam: absent: CVA tenderness (L), paraspinal tenderness - Neurological Exam Neurological exam: Alert, CN II-XII Intact, Oriented x3, Reflexes Normal - Psychiatric Exam Psychiatric exam: Depressed - Skin Skin Exam: Dry Results - Vital Signs Recent Vital Signs: Last Vital Signs Temp 98 F 08/18/17 23:38 Pulse 92 H 08/19/17 07:41 Resp 20 08/18/17 23:38 BP 207/112 H 08/18/17 23:38 Pulse Ox 99 08/18/17 23:38 - Labs Result Diagrams: 08/16/17 17:58 08/16/17 17:58 Labs: Laboratory Results - last 24 hr 08/18/17 08/19/17 08/19/17 21:08 02:18 06:31 POC Glucose (mg/dL) 130 H 443 H* 124 H 08/19/17 08/19/17 08/19/17 08:05 08:06 08:37 POC Glucose (mg/dL) 31 L* 32 L* 79 08/19/17 16:46 POC Glucose (mg/dL) 243 H Assessment & Plan - Assessment and Plan (Free Text) Assessment: nonhealing wound left foot - r/oOM recc MRI podiatry on board for OR poss amp check cultures add vanco IV when line established
[2017-08-19] MEDS ORDERED: DiphenhydrAMINE 50 mg/ml Inj IM PRN (19:06)
--- NOTE | 2017-08-19 20:21 | CP.PCM.PN ---
Subjective - Date & Time of Evaluation Date of Evaluation: 08/19/17 Time of Evaluation: 10:20 - Subjective Subjective: clinically same Objective - Vital Signs/Intake and Output Vital Signs (last 24 hours): Temp Pulse Resp BP Pulse Ox 98.3 F 85 16 178/88 H 97 08/19/17 16:00 08/19/17 16:00 08/19/17 16:00 08/19/17 16:00 08/19/17 16:00 Intake and Output: 08/19/17 08/20/17 18:59 06:59 Intake Total 750 Balance 750 - Medications Medications: Current Medications Betamethasone/Clotrimazole (Lotrisone) 0 gm TOP BID [facility] Stop: 08/25/17 10:01 Last Admin: 08/19/17 17:55 Dose: 1 applic Calcium Acetate (Phoslo) 667 mg PO TID [facility] Last Admin: 08/19/17 17:38 Dose: 667 mg Clonidine HCl (Catapres) 0.3 mg PO BID [facility] Last Admin: 08/19/17 17:38 Dose: 0.3 mg Dextrose (Dextrose 50% Inj) 0 ml IV STAT PRN; Protocol PRN Reason: Hypoglycemia Protocol Dextrose (Glutose 15) 15 gm PO ONCE PRN; Protocol PRN Reason: Hypoglycemia Protocol Last Admin: 08/19/17 08:20 Dose: 15 gm Diphenhydramine HCl (Benadryl) 25 mg IVP Q3 PRN PRN Reason: for itching Last Admin: 08/19/17 05:52 Dose: 25 mg Diphenhydramine HCl (Benadryl) 25 mg IM Q3H PRN PRN Reason: Itching / Pruritus Ergocalciferol (Drisdol 50,000 Intl Units Cap) 1 cap PO Q7D [facility] Last Admin: 08/17/17 12:15 Dose: Not Given Gabapentin (Neurontin) 300 mg PO BID [facility] Last Admin: 08/19/17 17:38 Dose: 300 mg Glucagon (Glucagen Diagnostic Kit) 1 mg IM STAT PRN; Protocol PRN Reason: Hypoglycemia Protocol Heparin Sodium (Porcine) (Heparin) 5,000 units SC Q12 [facility] Last Admin: 08/19/17 09:44 Dose: Not Given Hydromorphone HCl (Dilaudid) 2 mg IVP Q3 PRN PRN Reason: Pain, severe (8-10) Last Admin: 08/19/17 05:52 Dose: 2 mg Hydromorphone HCl (Dilaudid) 2 mg IM Q3H PRN PRN Reason: Pain, severe (8-10) Dextrose (Dextrose 5% In Water 1000 Ml) 1,000 mls @ 0 mls/hr IV .Q0M PRN; Protocol; Per Protocol PRN Reason: Hypoglycemia Protocol Vancomycin HCl 500 mg/ Sodium (Chloride) 100 mls @ 100 mls/hr IVPB MWF [facility] PRN Reason: Protocol Insulin Detemir (Levemir) 12 unit SC Q12 [facility] Last Admin: 08/19/17 09:10 Dose: Not Given Insulin Human Regular (Novolin R) 0 unit SC ACHS [facility] PRN Reason: Protocol Last Admin: 08/19/17 17:38 Dose: 4 unit Metoclopramide HCl (Reglan) 10 mg IVP DAILY PRN PRN Reason: Nausea/Vomiting Metronidazole (Flagyl) 250 mg PO Q8H [facility] Stop: 08/24/17 17:46 Last Admin: 08/19/17 17:38 Dose: 250 mg Nifedipine (Procardia Xl) 30 mg PO DAILY [facility] Last Admin: 08/19/17 09:44 Dose: 30 mg Pantoprazole Sodium (Protonix Ec Tab) 40 mg PO DAILY [facility] Last Admin: 08/19/17 09:44 Dose: 40 mg Vitamin B Complex/Vit C/Folic Acid (Nephro-Vamshi) 1 tab PO 0800 [facility] Last Admin: 08/19/17 09:44 Dose: 1 tab - Labs Labs: 08/16/17 17:58 08/16/17 17:58
--- NOTE | 2017-08-19 22:07 | CP.PCM.PN ---
Subjective - Date & Time of Evaluation Date of Evaluation: 08/19/17 Time of Evaluation: 18:40 - Subjective Subjective: Patient seen and evaluated Patient senies cardiac symptoms Recent cardiac cath : Non obstructive coronaries Increase Clonidine or add ACEI to regimen Continue all meds CKD on HD Patient low risk for cardiac events Keep BP less than 140/80 Objective - Vital Signs/Intake and Output Vital Signs (last 24 hours): Temp Pulse Resp BP Pulse Ox 98.3 F 85 16 178/88 H 97 08/19/17 16:00 08/19/17 16:00 08/19/17 16:00 08/19/17 16:00 08/19/17 16:00 Intake and Output: 08/19/17 08/20/17 18:59 06:59 Intake Total 750 Balance 750 - Medications Medications: Current Medications Betamethasone/Clotrimazole (Lotrisone) 0 gm TOP BID [facility] Stop: 08/25/17 10:01 Last Admin: 08/19/17 17:55 Dose: 1 applic Calcium Acetate (Phoslo) 667 mg PO TID [facility] Last Admin: 08/19/17 17:38 Dose: 667 mg Clonidine HCl (Catapres) 0.3 mg PO BID [facility] Last Admin: 08/19/17 17:38 Dose: 0.3 mg Dextrose (Dextrose 50% Inj) 0 ml IV STAT PRN; Protocol PRN Reason: Hypoglycemia Protocol Dextrose (Glutose 15) 15 gm PO ONCE PRN; Protocol PRN Reason: Hypoglycemia Protocol Last Admin: 08/19/17 08:20 Dose: 15 gm Diphenhydramine HCl (Benadryl) 25 mg IVP Q3 PRN PRN Reason: for itching Last Admin: 08/19/17 05:52 Dose: 25 mg Diphenhydramine HCl (Benadryl) 25 mg IM Q3H PRN PRN Reason: Itching / Pruritus Last Admin: 08/19/17 21:50 Dose: 25 mg Ergocalciferol (Drisdol 50,000 Intl Units Cap) 1 cap PO Q7D [facility] Last Admin: 08/17/17 12:15 Dose: Not Given Gabapentin (Neurontin) 300 mg PO BID [facility] Last Admin: 08/19/17 17:38 Dose: 300 mg Glucagon (Glucagen Diagnostic Kit) 1 mg IM STAT PRN; Protocol PRN Reason: Hypoglycemia Protocol Heparin Sodium (Porcine) (Heparin) 5,000 units SC Q12 [facility] Last Admin: 08/19/17 21:01 Dose: Not Given Hydromorphone HCl (Dilaudid) 2 mg IVP Q3 PRN PRN Reason: Pain, severe (8-10) Last Admin: 08/19/17 05:52 Dose: 2 mg Hydromorphone HCl (Dilaudid) 2 mg IM Q3H PRN PRN Reason: Pain, severe (8-10) Last Admin: 08/19/17 21:50 Dose: 2 mg Dextrose (Dextrose 5% In Water 1000 Ml) 1,000 mls @ 0 mls/hr IV .Q0M PRN; Protocol; Per Protocol PRN Reason: Hypoglycemia Protocol Vancomycin HCl 500 mg/ Sodium (Chloride) 100 mls @ 100 mls/hr IVPB MWF [facility] PRN Reason: Protocol Insulin Detemir (Levemir) 12 unit SC Q12 [facility] Last Admin: 08/19/17 21:50 Dose: 12 unit Insulin Human Regular (Novolin R) 0 unit SC ACHS [facility] PRN Reason: Protocol Last Admin: 08/19/17 21:51 Dose: 2 unit Metoclopramide HCl (Reglan) 10 mg IVP DAILY PRN PRN Reason: Nausea/Vomiting Metronidazole (Flagyl) 250 mg PO Q8H [facility] Stop: 08/24/17 17:46 Last Admin: 08/19/17 17:38 Dose: 250 mg Nifedipine (Procardia Xl) 30 mg PO DAILY [facility] Last Admin: 08/19/17 09:44 Dose: 30 mg Pantoprazole Sodium (Protonix Ec Tab) 40 mg PO DAILY [facility] Last Admin: 08/19/17 09:44 Dose: 40 mg Vitamin B Complex/Vit C/Folic Acid (Nephro-Vamshi) 1 tab PO 0800 [facility] Last Admin: 08/19/17 09:44 Dose: 1 tab - Labs Labs: 08/16/17 17:58 08/16/17 17:58
--- NOTE | 2017-08-19 22:30 | CP.PCM.PN ---
Subjective - Date & Time of Evaluation Date of Evaluation: 08/19/17 Time of Evaluation: 15:00 - Subjective Subjective: SEEN ON RENAL F/U ALL PREVIOUS EMR REVIEWED C/O PAIN ON L FOOT .. ON IVAB FOR NON HEALING WOUND ON HD M W F & SAT Objective - Vital Signs/Intake and Output Vital Signs (last 24 hours): Temp Pulse Resp BP Pulse Ox 98.3 F 85 16 178/88 H 97 08/19/17 16:00 08/19/17 16:00 08/19/17 16:00 08/19/17 16:00 08/19/17 16:00 Intake and Output: 08/19/17 08/20/17 18:59 06:59 Intake Total 750 Balance 750 - Medications Medications: Current Medications Betamethasone/Clotrimazole (Lotrisone) 0 gm TOP BID [facility] Stop: 08/25/17 10:01 Last Admin: 08/19/17 17:55 Dose: 1 applic Calcium Acetate (Phoslo) 667 mg PO TID [facility] Last Admin: 08/19/17 17:38 Dose: 667 mg Clonidine HCl (Catapres) 0.3 mg PO BID [facility] Last Admin: 08/19/17 17:38 Dose: 0.3 mg Dextrose (Dextrose 50% Inj) 0 ml IV STAT PRN; Protocol PRN Reason: Hypoglycemia Protocol Dextrose (Glutose 15) 15 gm PO ONCE PRN; Protocol PRN Reason: Hypoglycemia Protocol Last Admin: 08/19/17 08:20 Dose: 15 gm Diphenhydramine HCl (Benadryl) 25 mg IVP Q3 PRN PRN Reason: for itching Last Admin: 08/19/17 05:52 Dose: 25 mg Diphenhydramine HCl (Benadryl) 25 mg IM Q3H PRN PRN Reason: Itching / Pruritus Last Admin: 08/19/17 21:50 Dose: 25 mg Ergocalciferol (Drisdol 50,000 Intl Units Cap) 1 cap PO Q7D [facility] Last Admin: 08/17/17 12:15 Dose: Not Given Gabapentin (Neurontin) 300 mg PO BID [facility] Last Admin: 08/19/17 17:38 Dose: 300 mg Glucagon (Glucagen Diagnostic Kit) 1 mg IM STAT PRN; Protocol PRN Reason: Hypoglycemia Protocol Heparin Sodium (Porcine) (Heparin) 5,000 units SC Q12 [facility] Last Admin: 08/19/17 21:01 Dose: Not Given Hydromorphone HCl (Dilaudid) 2 mg IVP Q3 PRN PRN Reason: Pain, severe (8-10) Last Admin: 08/19/17 05:52 Dose: 2 mg Hydromorphone HCl (Dilaudid) 2 mg IM Q3H PRN PRN Reason: Pain, severe (8-10) Last Admin: 08/19/17 21:50 Dose: 2 mg Dextrose (Dextrose 5% In Water 1000 Ml) 1,000 mls @ 0 mls/hr IV .Q0M PRN; Protocol; Per Protocol PRN Reason: Hypoglycemia Protocol Vancomycin HCl 500 mg/ Sodium (Chloride) 100 mls @ 100 mls/hr IVPB MWF [facility] PRN Reason: Protocol Insulin Detemir (Levemir) 12 unit SC Q12 [facility] Last Admin: 08/19/17 21:50 Dose: 12 unit Insulin Human Regular (Novolin R) 0 unit SC ACHS [facility] PRN Reason: Protocol Last Admin: 08/19/17 21:51 Dose: 2 unit Metoclopramide HCl (Reglan) 10 mg IVP DAILY PRN PRN Reason: Nausea/Vomiting Metronidazole (Flagyl) 250 mg PO Q8H [facility] Stop: 08/24/17 17:46 Last Admin: 08/19/17 17:38 Dose: 250 mg Nifedipine (Procardia Xl) 30 mg PO DAILY [facility] Last Admin: 08/19/17 09:44 Dose: 30 mg Pantoprazole Sodium (Protonix Ec Tab) 40 mg PO DAILY [facility] Last Admin: 08/19/17 09:44 Dose: 40 mg Vitamin B Complex/Vit C/Folic Acid (Nephro-Vamshi) 1 tab PO 0800 [facility] Last Admin: 08/19/17 09:44 Dose: 1 tab - Labs Labs: 08/16/17 17:58 08/16/17 17:58 Assessment and Plan - Assessment and Plan (Free Text) Assessment: ESRD ON HD M W F AND SAT .. TO BE C/O ANEMIA OF CKD .. H/H STABLE MMP P : C/O CURRENT MEDS C/O PRESENT MANAGEMENT
[2017-08-20] MEDS: DiphenhydrAMINE 50 mg/ml Inj IVP PRN ×7 (00:37→22:05)
[2017-08-20] MEDS: Multivitamin Vitamin B Complex (Nephro-Vite) Tab PO SCH (08:12)
[2017-08-20] MEDS: (Novolin R) Insulin Human Regular 100 units/ml vial SC SCH ×4 (08:13→21:56)
--- NOTE | 2017-08-20 08:41 | CP.PCM.PN ---
Subjective - Date & Time of Evaluation Date of Evaluation: 08/20/17 Time of Evaluation: 08:41 - Subjective Subjective: Progress Note for Dr. Sexton's Service Pt seen and examined at bedside. She will be going to OR today for port placement. She was evaluated by Dr. Pinto earlier today, abx IV were started. She states that she continues to have diffuse pain; no interval changes. Objective - Vital Signs/Intake and Output Vital Signs (last 24 hours): Temp Pulse Resp BP Pulse Ox 98.1 F 96 H 20 154/89 H 100 08/20/17 07:00 08/20/17 07:00 08/20/17 07:00 08/20/17 07:00 08/20/17 07:00 - Medications Medications: Current Medications Betamethasone/Clotrimazole (Lotrisone) 0 gm TOP BID [facility] Stop: 08/25/17 10:01 Last Admin: 08/19/17 22:57 Dose: Not Given Calcium Acetate (Phoslo) 667 mg PO TID [facility] Last Admin: 08/19/17 17:38 Dose: 667 mg Clonidine HCl (Catapres) 0.3 mg PO BID [facility] Last Admin: 08/19/17 17:38 Dose: 0.3 mg Dextrose (Dextrose 50% Inj) 0 ml IV STAT PRN; Protocol PRN Reason: Hypoglycemia Protocol Dextrose (Glutose 15) 15 gm PO ONCE PRN; Protocol PRN Reason: Hypoglycemia Protocol Last Admin: 08/19/17 08:20 Dose: 15 gm Diphenhydramine HCl (Benadryl) 25 mg IVP Q3 PRN PRN Reason: for itching Last Admin: 08/20/17 06:42 Dose: 25 mg Diphenhydramine HCl (Benadryl) 25 mg IM Q3H PRN PRN Reason: Itching / Pruritus Last Admin: 08/19/17 21:50 Dose: 25 mg Ergocalciferol (Drisdol 50,000 Intl Units Cap) 1 cap PO Q7D [facility] Last Admin: 08/17/17 12:15 Dose: Not Given Gabapentin (Neurontin) 300 mg PO BID [facility] Last Admin: 08/19/17 17:38 Dose: 300 mg Glucagon (Glucagen Diagnostic Kit) 1 mg IM STAT PRN; Protocol PRN Reason: Hypoglycemia Protocol Heparin Sodium (Porcine) (Heparin) 5,000 units SC Q12 [facility] Last Admin: 08/19/17 21:01 Dose: Not Given Hydromorphone HCl (Dilaudid) 2 mg IVP Q3 PRN PRN Reason: Pain, severe (8-10) Last Admin: 08/20/17 06:42 Dose: 2 mg Hydromorphone HCl (Dilaudid) 2 mg IM Q3H PRN PRN Reason: Pain, severe (8-10) Last Admin: 08/19/17 21:50 Dose: 2 mg Dextrose (Dextrose 5% In Water 1000 Ml) 1,000 mls @ 0 mls/hr IV .Q0M PRN; Protocol; Per Protocol PRN Reason: Hypoglycemia Protocol Vancomycin HCl 500 mg/ Sodium (Chloride) 100 mls @ 100 mls/hr IVPB MWF [facility] PRN Reason: Protocol Insulin Detemir (Levemir) 12 unit SC Q12 [facility] Last Admin: 08/19/17 21:50 Dose: 12 unit Insulin Human Regular (Novolin R) 0 unit SC ACHS [facility] PRN Reason: Protocol Last Admin: 08/20/17 08:13 Dose: Not Given Metoclopramide HCl (Reglan) 10 mg IVP DAILY PRN PRN Reason: Nausea/Vomiting Metronidazole (Flagyl) 250 mg PO Q8H [facility] Stop: 08/24/17 17:46 Last Admin: 08/20/17 01:06 Dose: Not Given Nifedipine (Procardia Xl) 30 mg PO DAILY [facility] Last Admin: 08/19/17 09:44 Dose: 30 mg Pantoprazole Sodium (Protonix Ec Tab) 40 mg PO DAILY [facility] Last Admin: 08/19/17 09:44 Dose: 40 mg Vitamin B Complex/Vit C/Folic Acid (Nephro-Main) 1 tab PO 0800 [facility] Last Admin: 08/20/17 08:12 Dose: 1 tab - Labs Labs: 08/16/17 17:58 08/16/17 17:58 - Constitutional Appears: No Acute Distress - Head Exam Head Exam: ATRAUMATIC, NORMOCEPHALIC - Eye Exam Eye Exam: EOMI, Normal appearance - ENT Exam ENT Exam: Mucous Membranes Moist - Respiratory Exam Respiratory Exam: Clear to Ausculation Bilateral, NORMAL BREATHING PATTERN - Cardiovascular Exam Cardiovascular Exam: REGULAR RHYTHM, +S1, +S2 - GI/Abdominal Exam GI & Abdominal Exam: Soft. absent: Tenderness - Extremities Exam Additional comments: dressing C/D/I on feet - Neurological Exam Neurological Exam: Alert, Awake, Oriented x3 - Skin Skin Exam: Dry, Warm Assessment and Plan - Assessment and Plan (Free Text) Plan: DM with gastroparesis- abdominal pain Levemir 12U SC q12hrs ISS- medium dose neurontin 300mg PO BID Poorly controlled sugars Continue POC monitoring hypoglycemia protocol Reglan 10mg PO daily Flagyl- 250mg PO q8hrs Intractable pain Patient states she has pain all over body, although she appears to be very comfortable Patient with hx of non-complinace and drug seeking habits Dilaudid 2mg IVP Q3hrs w/ benadryl 25mg IV q3hrs prn- As per Dr. Sexton OR today for port insertion with Dr. Alicia Anemia of chronic disease Dr. Pierce has seen patient in the past no evidence of nutritional deficiency anemia of chronic kidney disease on EPO per renal HTN Clonidine 0.3mg PO BID Nifedipine 30mg PO daily Status Post Nail Avulsion with possible infectious complications Podiatry on board- Dr. Treva Sterling Plan for left hallux lateral border matrixectomy in OR for today ID consulted- Dr. Pinto- shari appreciated Possible OM Vancomycin 500mg IV daily ESRD Dr. Phillips consulted HD M/// Will follow up recommendations nephro-main 1 tablet PO daily Procrit Creatinine 6.9 1 Nausea Reglan 10mg PO daily zofran 4mg IV q8hrs Hepatitis Diagnosed on previous admission AST/ALT normal this admission Prophylaxis anticoagulation on hold for OR Protonix 40mg PO daily Zofran prn nausea Case discussed with Dr. Sexton. All management as per Dr. Sexton
[2017-08-20] MEDS ORDERED: Aminophylline 25 mg/ml Inj ONE (08:50)
[2017-08-20] MEDS: Pantoprazole 40 mg EC Tab PO SCH (09:55)
--- NOTE | 2017-08-20 10:49 | CP.PCM.PN ---
Subjective - Date & Time of Evaluation Date of Evaluation: 08/20/17 Time of Evaluation: 09:00 - Subjective Subjective: events noted for OR IV rx ordered Objective - Vital Signs/Intake and Output Vital Signs (last 24 hours): Temp Pulse Resp BP Pulse Ox 98.1 F 96 H 20 154/89 H 100 08/20/17 07:00 08/20/17 07:00 08/20/17 07:00 08/20/17 07:00 08/20/17 07:00 - Medications Medications: Current Medications Betamethasone/Clotrimazole (Lotrisone) 0 gm TOP BID [facility] Stop: 08/25/17 10:01 Last Admin: 08/19/17 22:57 Dose: Not Given Calcium Acetate (Phoslo) 667 mg PO TID [facility] Last Admin: 08/19/17 17:38 Dose: 667 mg Clonidine HCl (Catapres) 0.3 mg PO BID [facility] Last Admin: 08/19/17 17:38 Dose: 0.3 mg Dextrose (Dextrose 50% Inj) 0 ml IV STAT PRN; Protocol PRN Reason: Hypoglycemia Protocol Dextrose (Glutose 15) 15 gm PO ONCE PRN; Protocol PRN Reason: Hypoglycemia Protocol Last Admin: 08/19/17 08:20 Dose: 15 gm Diphenhydramine HCl (Benadryl) 25 mg IVP Q3 PRN PRN Reason: for itching Last Admin: 08/20/17 06:42 Dose: 25 mg Diphenhydramine HCl (Benadryl) 25 mg IM Q3H PRN PRN Reason: Itching / Pruritus Last Admin: 08/19/17 21:50 Dose: 25 mg Ergocalciferol (Drisdol 50,000 Intl Units Cap) 1 cap PO Q7D [facility] Last Admin: 08/17/17 12:15 Dose: Not Given Gabapentin (Neurontin) 300 mg PO BID [facility] Last Admin: 08/19/17 17:38 Dose: 300 mg Glucagon (Glucagen Diagnostic Kit) 1 mg IM STAT PRN; Protocol PRN Reason: Hypoglycemia Protocol Hydromorphone HCl (Dilaudid) 2 mg IVP Q3 PRN PRN Reason: Pain, severe (8-10) Last Admin: 08/20/17 06:42 Dose: 2 mg Hydromorphone HCl (Dilaudid) 2 mg IM Q3H PRN PRN Reason: Pain, severe (8-10) Last Admin: 08/19/17 21:50 Dose: 2 mg Dextrose (Dextrose 5% In Water 1000 Ml) 1,000 mls @ 0 mls/hr IV .Q0M PRN; Protocol; Per Protocol PRN Reason: Hypoglycemia Protocol Vancomycin HCl 500 mg/ Sodium (Chloride) 100 mls @ 100 mls/hr IVPB MWF [facility] PRN Reason: Protocol Insulin Detemir (Levemir) 12 unit SC Q12 [facility] Last Admin: 08/19/17 21:50 Dose: 12 unit Insulin Human Regular (Novolin R) 0 unit SC ACHS [facility] PRN Reason: Protocol Last Admin: 08/20/17 08:13 Dose: Not Given Metoclopramide HCl (Reglan) 10 mg IVP DAILY PRN PRN Reason: Nausea/Vomiting Metronidazole (Flagyl) 250 mg PO Q8H [facility] Stop: 08/24/17 17:46 Last Admin: 08/20/17 01:06 Dose: Not Given Nifedipine (Procardia Xl) 30 mg PO DAILY [facility] Last Admin: 08/19/17 09:44 Dose: 30 mg Pantoprazole Sodium (Protonix Ec Tab) 40 mg PO DAILY [facility] Last Admin: 08/19/17 09:44 Dose: 40 mg Vitamin B Complex/Vit C/Folic Acid (Nephro-Vamshi) 1 tab PO 0800 [facility] Last Admin: 08/20/17 08:12 Dose: 1 tab - Labs Labs: 08/16/17 17:58 08/16/17 17:58 - Constitutional Appears: Non-toxic, Chronically Ill - Head Exam Head Exam: NORMOCEPHALIC - Eye Exam Eye Exam: PERRL - ENT Exam ENT Exam: Mucous Membranes Dry - Neck Exam Neck Exam: absent: Lymphadenopathy - Respiratory Exam Respiratory Exam: Decreased Breath Sounds - Cardiovascular Exam Cardiovascular Exam: REGULAR RHYTHM - GI/Abdominal Exam GI & Abdominal Exam: Distended - Rectal Exam Rectal Exam: Deferred - Exam Exam: NORMAL INSPECTION - Extremities Exam Extremities Exam: absent: Pedal Edema - Back Exam Back Exam: absent: CVA tenderness (L), CVA tenderness (R) Assessment and Plan - Assessment and Plan (Free Text) Assessment: r/o OM left third toe infected right foot cellulitis esrd hx mrsa
[2017-08-20] MEDS: Insulin Detemir 100 units/ml Vial (Levemir) SC SCH ×2 (11:30→22:33)
[2017-08-20] MEDS: NIFEdipine 30 mg ER Tab PO SCH (11:35)
[2017-08-20] MEDS ORDERED: HEPARIN-NS 5,000 UNITS/500 ML 5,000 UNIT/500 ML BAG IV ONE (12:51)
--- NOTE | 2017-08-20 13:35 | CARD ---
APPROVED REPORT Protocol: PHARMACOLOGICAL STRESS Test Type: LEXISCAN Test Indications: PRE OP Medications: LIST SCAN Medical History: PRE OP Target HR: 190 bpm Resting ECG: normal Resting Heart Rate: 86 bpm Resting Blood Pressure: 140/80mmHg submaximum (85%): 162 bpm TEST SUMMARY [id number]. INFUSIONDOSE 100:300.00.01.090/.0. [id number]. PROCEDURE Pharmacologic stress testing was performed using 0.4mg per 5ml of regadenoson given intravenously over 7-10 seconds. POST EXERCISE Reason for Termination: Protocol Completed Target HR: No Max HR: 90 bpm 54% of Maximum Predicted HR: 190 bpm Exercise duration: 00:30 min:sec, 0 Stage Exercise capacity: 1.0METs Max Blood Pressure: 140/80mmHg Blood Pressure response to exercise: normal resting BP - appropriate response Heart Rate response to exercise: appropriate Chest Pain: No, none Angina index: 0 Arrhythmia: No, none ST Change: No, none Deviation: 0 mm EXAM: Myocardial Perfusion REST/STRESS Imaging Protocol The imaging protocol used to acquire images was Rest Tc-99m/stress Tc-99m 1 day Rest Spect myocardial perfusion imaging was performed in supine position 45 minutes following the injection of 13.1 mCi of Tc-99 Myoview. Gated Stress Spect was performed 45 minutes after intravenous 32.7 mCi Tc-99 Myoview injection. The images were gated to evaluate regional wall motion and calculate ventricular ejection fraction.Images were reconstructed using backfilter projection method in short horizontal and verticle long axis. Spect slices were generated. RESTING DATA IDA611.19ufPF7.50L/min JNA005.00mlMyocardial Upfx491.00g Av. Heart Rate83.00bpm EF42.00% STRESS DATA SBJ789.40jmGX8.10L/min GZJ205.00mlMyocardial Whlz042.00g EF46.00% Regional WT score at stress:3.00 Regional WM score at stress:0.00 Summed WT score at stress:41.00 Av. Heart Rate88.00bpmSummed WM score at stress:13.00 Study quality was fair. Left Ventricular size was Normal at Rest and Stress. LV Perfusion 1 Perfusion Defect Location: mid anterolateral Perfusion Defect Size: Small (1-2 segments) Perfusion Defect Severity: Mild Type of Perfusion Defect: Fixed TCD/TID: No LV Perf. Quant 17 Seg. SSS1.00 17 Seg. SRS5.00 17 Seg. SDS0.00 Stress Defect Extent (% LAD)0.00Rest Defect Extent (% LAD)0.00Rev. Defect Extent (% LAD)0.00 Stress Defect Extent (% LCX)0.00Rest Defect Extent (% LCX)23.80Rev. Defect Extent (% LCX)0.00 Stress Defect Extent (% RCA)0.00Rest Defect Extent (% RCA)0.00Rev. Defect Extent (% RCA)0.00 Stress Defect Extent (% AZALIA)0.00Rest Defect Extent (% AZALIA)7.20Rev. Defect Extent (% AZALIA)0.00 Other Information Quality:Fair Overall Exercise Capacity: not assessed IMPRESSION Global LV Function: Mildy reduced Stress Test Summary: Normal LV Perfusion Summary: Abnormal Metabolism/Perfusion Defects: - Small sized mild intensity fixed mid anterolateral defect secondary to bowel loop attenuation Conclusion 1. - Mild LV systoli dysfunction 2. - Low probability for obstructive atherosclerotic coronary artery disease
--- NOTE | 2017-08-20 15:21 | PCM.PSYCH ---
Initial Psychiatric Evaluation - Initial Psychiatric Evaluation Type of Admission: Voluntary History of Present Illness and Precipitating Events: Consultation ordered by medical team for depression. Patient is a 31 year old single with no kids, unemployed female who presented to the hospital with abdominal pain, nausea, and vomiting. Patient currently lives with mother in [place]. Patient has a past medical history of depression (since being diagnosed with gastroparesis), gastroparesis, DM type 1 , ESRD w/dialysis, and sickle cell trait. She reports she has taken medications for depression in the past but stopped because they made her feel groggy and didn't help." She denies being hospitalized for depression or psychiatric disorders in the past. She reports having SI in 2010 and 2013, but denies having current SI, reports her depression is stable at this time. The patient denies using alcohol, drugs, and tobacco. Patient reports she is unsure about a family history of psychiatric disorders and denies a family history of substance abuse. Current Medications: Active Medications Generic Name Dose Route Start Last Admin Trade Name Freq PRN Reason Stop Dose Admin Betamethasone/Clotrimazole 0 gm 08/18/17 10:00 08/19/17 22:57 Lotrisone TOP 08/25/17 10:01 Not Given BID KAREN Calcium Acetate 667 mg 08/17/17 14:00 08/20/17 09:55 Phoslo PO 667 mg TID KAREN Administration Clonidine HCl 0.3 mg 08/17/17 18:00 08/20/17 09:55 Catapres PO 0.3 mg BID KAREN Administration Dextrose 0 ml 08/19/17 08:09 Dextrose 50% Inj IV STAT PRN Hypoglycemia Protocol Protocol Dextrose 15 gm 08/19/17 08:09 08/19/17 08:20 Glutose 15 PO 15 gm ONCE PRN Administration Hypoglycemia Protocol Protocol Diphenhydramine HCl 25 mg 08/16/17 21:23 08/20/17 13:19 Benadryl IVP 25 mg Q3 PRN Administration for itching Diphenhydramine HCl 25 mg 08/19/17 19:06 08/19/17 21:50 Benadryl IM 25 mg Q3H PRN Administration Itching / Pruritus Ergocalciferol 1 cap 08/17/17 11:15 08/17/17 12:15 Drisdol 50,000 Intl Units Cap PO Not Given Q7D KAREN Gabapentin 300 mg 08/17/17 18:00 08/20/17 09:55 Neurontin PO 300 mg BID AKREN Administration Glucagon 1 mg 08/19/17 08:09 Glucagen Diagnostic Kit IM STAT PRN Hypoglycemia Protocol Protocol Hydromorphone HCl 2 mg 08/16/17 21:23 08/20/17 13:20 Dilaudid IVP 2 mg Q3 PRN Administration Pain, severe (8-10) Hydromorphone HCl 2 mg 08/19/17 19:05 08/19/17 21:50 Dilaudid IM 2 mg Q3H PRN Administration Pain, severe (8-10) Dextrose 1,000 mls @ 0 mls/hr 08/19/17 08:09 Dextrose 5% In Water 1000 Ml IV .Q0M PRN Hypoglycemia Protocol Protocol Per Protocol Vancomycin HCl 500 mg/ Sodium 100 mls @ 100 mls/hr 08/20/17 09:00 08/20/17 11 :32 Chloride IVPB Not Given MWF [facility] Protocol Insulin Detemir 12 unit 08/17/17 11:15 08/20/17 11:30 Levemir SC Not Given Q12 [facility] Insulin Human Regular 0 unit 08/17/17 09:15 08/20/17 08:13 Novolin R SC Not Given ACHS [facility] Protocol Metoclopramide HCl 10 mg 08/17/17 11:10 Reglan IVP DAILY PRN Nausea/Vomiting Metronidazole 250 mg 08/17/17 17:45 08/20/17 11:31 Flagyl PO 08/24/17 17:46 Not Given Q8H [facility] Nifedipine 30 mg 08/17/17 10:30 08/20/17 11:35 Procardia Xl PO 30 mg DAILY KAREN Administration Pantoprazole Sodium 40 mg 08/17/17 11:15 08/20/17 09:55 Protonix Ec Tab PO 40 mg DAILY KAREN Administration Vitamin B Complex/Vit C/Folic Acid 1 tab 08/18/17 08:00 08/20/17 08:12 Nephro-Vamshi PO 1 tab 0800 KAREN Administration Past Psychiatric History - Past Psychiatric History Pertinent Medical Hx (Current Medical&Sleep Prob, Allergies): Allergies Allergy/AdvReac Type Severity Reaction Status Date / Time ketorolac tromethamine Allergy RASH Verified 08/16/17 17:16 [From Toradol] latex Allergy RASH Verified 08/16/17 17:16 morphine Allergy RASH Verified 08/16/17 17:16 tramadol Allergy RASH Verified 08/16/17 17:16 Calcium Acetate [Phoslo] 667 mg PO TID 12/13/15 Insulin Aspart, Recombinant [Novolog] 6 unit SC AC #0 unit 08/21/16 Insulin Detemir [Levemir] 12 unit SC Q12 #1 vial 09/04/16 Ondansetron [Zofran Odt] 4 mg PO Q8 PRN #15 odt 04/19/17 Cholecalciferol [Vitamin D 1000 IU] 1,000 unit PO DAILY 05/28/17 Gabapentin [Neurontin] 300 mg PO BID 05/28/17 Metoclopramide [Reglan] 10 mg PO DAILY 05/28/17 cloNIDine [Catapres] 0.3 mg PO BID 05/28/17 Pantoprazole [Protonix EC Tab] 40 mg PO DAILY #30 ect 06/27/17 Vitamin B Complex/Vit C/Folic [Nephro-Vamshi] 1 tab PO 0800 #30 tab 06/27/17 Fentanyl 50 mcg TD Q72 #1 patch.[id number] 08/10/17 Review of Systems - Neurological Neurological: UNREMARKABLE - Psychiatric Psychiatric: Depression ("stable"). absent: Anxiety, Auditory Hallucinations, Hallucinations, Suicidal Ideation, Visual Hallucinations Mental Status Examination - Personal Presentation Personal Presentation: Looks older than stated age - Affect Affect: Constricted - Motor Activity Motor Activity: Calm - Reliability in Providing Information Reliability in Providing Information: Fair - Mood Additional comments: sedated - Formal Thought Process Formal Thought Process: No Impairment - Cognitive Functions Orientation: Person, Place, Situation, Time Sensorium: Drowsy, Lethargic Attention/Concentration: Attentive Estimate of Intelligence: Average Judgement: Imparied, as evidence by: Lack of insight into illness Memory: Remote intact, as evidenced by: Abilit to recall sig. life events - Risk Risk: Diminished functioning - Strength & Assets Inventory Strength & Assets Inventory: Family support DSM 5 DX - DSM 5 DSM 5 Diagnosis: Major Depressive Disorder - Recommended/Plan of Treatment Treatment Recommendations and Plan of Treatment: CBT Psychoeducation Encourage supportive therapy, individual therapy Continue medical management as per medical team. - Smoking Cessation Smoking Cessation Initiated: No
--- NOTE | 2017-08-20 15:30 | CP.PCM.PN ---
Subjective - Date & Time of Evaluation Date of Evaluation: 08/20/17 Time of Evaluation: 15:29 - Subjective Subjective: question re preganancy had negative serum test 08/16/17 hospitalized, denies sexual activity since 2007 Objective - Vital Signs/Intake and Output Vital Signs (last 24 hours): Temp Pulse Resp BP Pulse Ox 98.1 F 96 H 20 154/89 H 100 08/20/17 07:00 08/20/17 07:00 08/20/17 07:00 08/20/17 07:00 08/20/17 07:00 - Medications Medications: Current Medications Betamethasone/Clotrimazole (Lotrisone) 0 gm TOP BID [facility] Stop: 08/25/17 10:01 Last Admin: 08/19/17 22:57 Dose: Not Given Calcium Acetate (Phoslo) 667 mg PO TID [facility] Last Admin: 08/20/17 09:55 Dose: 667 mg Clonidine HCl (Catapres) 0.3 mg PO BID [facility] Last Admin: 08/20/17 09:55 Dose: 0.3 mg Dextrose (Dextrose 50% Inj) 0 ml IV STAT PRN; Protocol PRN Reason: Hypoglycemia Protocol Dextrose (Glutose 15) 15 gm PO ONCE PRN; Protocol PRN Reason: Hypoglycemia Protocol Last Admin: 08/19/17 08:20 Dose: 15 gm Diphenhydramine HCl (Benadryl) 25 mg IVP Q3 PRN PRN Reason: for itching Last Admin: 08/20/17 13:19 Dose: 25 mg Diphenhydramine HCl (Benadryl) 25 mg IM Q3H PRN PRN Reason: Itching / Pruritus Last Admin: 08/19/17 21:50 Dose: 25 mg Ergocalciferol (Drisdol 50,000 Intl Units Cap) 1 cap PO Q7D [facility] Last Admin: 08/17/17 12:15 Dose: Not Given Gabapentin (Neurontin) 300 mg PO BID [facility] Last Admin: 08/20/17 09:55 Dose: 300 mg Glucagon (Glucagen Diagnostic Kit) 1 mg IM STAT PRN; Protocol PRN Reason: Hypoglycemia Protocol Hydromorphone HCl (Dilaudid) 2 mg IVP Q3 PRN PRN Reason: Pain, severe (8-10) Last Admin: 08/20/17 13:20 Dose: 2 mg Hydromorphone HCl (Dilaudid) 2 mg IM Q3H PRN PRN Reason: Pain, severe (8-10) Last Admin: 08/19/17 21:50 Dose: 2 mg Dextrose (Dextrose 5% In Water 1000 Ml) 1,000 mls @ 0 mls/hr IV .Q0M PRN; Protocol; Per Protocol PRN Reason: Hypoglycemia Protocol Vancomycin HCl 500 mg/ Sodium (Chloride) 100 mls @ 100 mls/hr IVPB MWF [facility] PRN Reason: Protocol Last Admin: 08/20/17 11:32 Dose: Not Given Insulin Detemir (Levemir) 12 unit SC Q12 [facility] Last Admin: 08/20/17 11:30 Dose: Not Given Insulin Human Regular (Novolin R) 0 unit SC ACHS [facility] PRN Reason: Protocol Last Admin: 08/20/17 08:13 Dose: Not Given Metoclopramide HCl (Reglan) 10 mg IVP DAILY PRN PRN Reason: Nausea/Vomiting Metronidazole (Flagyl) 250 mg PO Q8H [facility] Stop: 08/24/17 17:46 Last Admin: 08/20/17 11:31 Dose: Not Given Nifedipine (Procardia Xl) 30 mg PO DAILY [facility] Last Admin: 08/20/17 11:35 Dose: 30 mg Pantoprazole Sodium (Protonix Ec Tab) 40 mg PO DAILY [facility] Last Admin: 08/20/17 09:55 Dose: 40 mg Vitamin B Complex/Vit C/Folic Acid (Nephro-Vamshi) 1 tab PO 0800 [facility] Last Admin: 08/20/17 08:12 Dose: 1 tab - Labs Labs: 08/16/17 17:58 08/16/17 17:58
--- NOTE | 2017-08-20 15:36 | CP.PCM.PN ---
Subjective - Date & Time of Evaluation Date of Evaluation: 08/20/17 Time of Evaluation: 15:35 - Subjective Subjective: preganancy issue reviewed again aware of potential risks if she is and she accepts them Objective - Vital Signs/Intake and Output Vital Signs (last 24 hours): Temp Pulse Resp BP Pulse Ox 98.1 F 96 H 20 154/89 H 100 08/20/17 07:00 08/20/17 07:00 08/20/17 07:00 08/20/17 07:00 08/20/17 07:00 - Medications Medications: Current Medications Betamethasone/Clotrimazole (Lotrisone) 0 gm TOP BID [facility] Stop: 08/25/17 10:01 Last Admin: 08/19/17 22:57 Dose: Not Given Calcium Acetate (Phoslo) 667 mg PO TID [facility] Last Admin: 08/20/17 09:55 Dose: 667 mg Clonidine HCl (Catapres) 0.3 mg PO BID [facility] Last Admin: 08/20/17 09:55 Dose: 0.3 mg Dextrose (Dextrose 50% Inj) 0 ml IV STAT PRN; Protocol PRN Reason: Hypoglycemia Protocol Dextrose (Glutose 15) 15 gm PO ONCE PRN; Protocol PRN Reason: Hypoglycemia Protocol Last Admin: 08/19/17 08:20 Dose: 15 gm Diphenhydramine HCl (Benadryl) 25 mg IVP Q3 PRN PRN Reason: for itching Last Admin: 08/20/17 13:19 Dose: 25 mg Diphenhydramine HCl (Benadryl) 25 mg IM Q3H PRN PRN Reason: Itching / Pruritus Last Admin: 08/19/17 21:50 Dose: 25 mg Ergocalciferol (Drisdol 50,000 Intl Units Cap) 1 cap PO Q7D [facility] Last Admin: 08/17/17 12:15 Dose: Not Given Gabapentin (Neurontin) 300 mg PO BID [facility] Last Admin: 08/20/17 09:55 Dose: 300 mg Glucagon (Glucagen Diagnostic Kit) 1 mg IM STAT PRN; Protocol PRN Reason: Hypoglycemia Protocol Hydromorphone HCl (Dilaudid) 2 mg IVP Q3 PRN PRN Reason: Pain, severe (8-10) Last Admin: 08/20/17 13:20 Dose: 2 mg Hydromorphone HCl (Dilaudid) 2 mg IM Q3H PRN PRN Reason: Pain, severe (8-10) Last Admin: 08/19/17 21:50 Dose: 2 mg Dextrose (Dextrose 5% In Water 1000 Ml) 1,000 mls @ 0 mls/hr IV .Q0M PRN; Protocol; Per Protocol PRN Reason: Hypoglycemia Protocol Vancomycin HCl 500 mg/ Sodium (Chloride) 100 mls @ 100 mls/hr IVPB MWF [facility] PRN Reason: Protocol Last Admin: 08/20/17 11:32 Dose: Not Given Insulin Detemir (Levemir) 12 unit SC Q12 [facility] Last Admin: 08/20/17 11:30 Dose: Not Given Insulin Human Regular (Novolin R) 0 unit SC ACHS [facility] PRN Reason: Protocol Last Admin: 08/20/17 08:13 Dose: Not Given Metoclopramide HCl (Reglan) 10 mg IVP DAILY PRN PRN Reason: Nausea/Vomiting Metronidazole (Flagyl) 250 mg PO Q8H [facility] Stop: 08/24/17 17:46 Last Admin: 08/20/17 11:31 Dose: Not Given Nifedipine (Procardia Xl) 30 mg PO DAILY [facility] Last Admin: 08/20/17 11:35 Dose: 30 mg Pantoprazole Sodium (Protonix Ec Tab) 40 mg PO DAILY [facility] Last Admin: 08/20/17 09:55 Dose: 40 mg Vitamin B Complex/Vit C/Folic Acid (Nephro-Vamshi) 1 tab PO 0800 [facility] Last Admin: 08/20/17 08:12 Dose: 1 tab - Labs Labs: 08/16/17 17:58 08/16/17 17:58
[2017-08-20] MEDS ORDERED: Lactated Ringer's 1,000 ML IV ONE ×2 (15:45)
[2017-08-20] MEDS ORDERED: Propofol 10 mg/ml Inj (20 ML) ONE ×2 (15:53→16:17)
[2017-08-20] MEDS: Lidocaine 1% Inj (20ml) ONE ×2 (16:00→16:26)
[2017-08-20] MEDS ORDERED: Iohexol 240 (50 ml) ONE (16:22)
[2017-08-20] MEDS: Clotrimazole/Betamethasone Cream(15 gm) TOP SCH ×2 (16:50→19:03)
--- NOTE | 2017-08-20 17:45 | PCM.SURG1 ---
Surgeon's Initial Post Op Note - Surgeon's Notes Surgeon: Ravin Cryolite Recovery Operator: Luis Alfredo Padilla PGY2 Type of Anesthesia: IV Sedation, Local Pre-Operative Diagnosis: poor access Operative Findings: Tortous veins. venous thrombosed Post-Operative Diagnosis: Same Operation Performed: Portacath insertion Specimen/Specimens Removed: None Estimated Blood Loss: EBL {In ML}: 50 Blood Products Given: N/A Drains Used: No Drains Post-Op Condition: Good Date of Surgery/Procedure: 08/20/17 Time of Surgery/Procedure: 17:45
--- NOTE | 2017-08-20 18:46 | CP.PCM.PN ---
Subjective - Date & Time of Evaluation Date of Evaluation: 08/20/17 Time of Evaluation: 10:00 - Subjective Subjective: clinically same Objective - Vital Signs/Intake and Output Vital Signs (last 24 hours): Temp Pulse Resp BP Pulse Ox 97.8 F 88 12 178/102 H 100 08/20/17 17:25 08/20/17 17:25 08/20/17 17:25 08/20/17 17:25 08/20/17 17:25 - Medications Medications: Current Medications Betamethasone/Clotrimazole (Lotrisone) 0 gm TOP BID [facility] Stop: 08/25/17 10:01 Last Admin: 08/20/17 16:50 Dose: Not Given Calcium Acetate (Phoslo) 667 mg PO TID [facility] Last Admin: 08/20/17 16:51 Dose: Not Given Clonidine HCl (Catapres) 0.3 mg PO BID [facility] Last Admin: 08/20/17 09:55 Dose: 0.3 mg Dextrose (Dextrose 50% Inj) 0 ml IV STAT PRN; Protocol PRN Reason: Hypoglycemia Protocol Dextrose (Glutose 15) 15 gm PO ONCE PRN; Protocol PRN Reason: Hypoglycemia Protocol Last Admin: 08/19/17 08:20 Dose: 15 gm Diphenhydramine HCl (Benadryl) 25 mg IVP Q3 PRN PRN Reason: for itching Last Admin: 08/20/17 13:19 Dose: 25 mg Diphenhydramine HCl (Benadryl) 25 mg IM Q3H PRN PRN Reason: Itching / Pruritus Last Admin: 08/19/17 21:50 Dose: 25 mg Ergocalciferol (Drisdol 50,000 Intl Units Cap) 1 cap PO Q7D [facility] Last Admin: 08/17/17 12:15 Dose: Not Given Gabapentin (Neurontin) 300 mg PO BID [facility] Last Admin: 08/20/17 09:55 Dose: 300 mg Glucagon (Glucagen Diagnostic Kit) 1 mg IM STAT PRN; Protocol PRN Reason: Hypoglycemia Protocol Hydromorphone HCl (Dilaudid) 2 mg IVP Q3 PRN PRN Reason: Pain, severe (8-10) Last Admin: 08/20/17 13:20 Dose: 2 mg Hydromorphone HCl (Dilaudid) 2 mg IM Q3H PRN PRN Reason: Pain, severe (8-10) Last Admin: 08/19/17 21:50 Dose: 2 mg Dextrose (Dextrose 5% In Water 1000 Ml) 1,000 mls @ 0 mls/hr IV .Q0M PRN; Protocol; Per Protocol PRN Reason: Hypoglycemia Protocol Vancomycin HCl 500 mg/ Sodium (Chloride) 100 mls @ 100 mls/hr IVPB MWF [facility] PRN Reason: Protocol Last Admin: 08/20/17 11:32 Dose: Not Given Insulin Detemir (Levemir) 12 unit SC Q12 [facility] Last Admin: 08/20/17 11:30 Dose: Not Given Insulin Human Regular (Novolin R) 0 unit SC ACHS [facility] PRN Reason: Protocol Last Admin: 08/20/17 16:50 Dose: Not Given Metoclopramide HCl (Reglan) 10 mg IVP DAILY PRN PRN Reason: Nausea/Vomiting Metronidazole (Flagyl) 250 mg PO Q8H [facility] Stop: 08/24/17 17:46 Last Admin: 08/20/17 11:31 Dose: Not Given Nifedipine (Procardia Xl) 30 mg PO DAILY [facility] Last Admin: 08/20/17 11:35 Dose: 30 mg Pantoprazole Sodium (Protonix Ec Tab) 40 mg PO DAILY [facility] Last Admin: 08/20/17 09:55 Dose: 40 mg Vitamin B Complex/Vit C/Folic Acid (Nephro-Vamshi) 1 tab PO 0800 [facility] Last Admin: 08/20/17 08:12 Dose: 1 tab - Labs Labs: 08/16/17 17:58 08/16/17 17:58
--- NOTE | 2017-08-20 19:05 | RAD ---
HISTORY: s/p portacath in PACU COMPARISON: Chest x-ray performed 08/06/17 TECHNIQUE: Chest, one view. FINDINGS: Right-sided MediPort extends to the proximal right atrium. LUNGS: Pulmonary venous congestion. Linear atelectasis, left lung base. Please note that chest x-ray has limited sensitivity for the detection of pulmonary masses. PLEURA: No significant pleural effusion identified. No definite pneumothorax . CARDIOVASCULAR: Cardiomegaly. OSSEOUS STRUCTURES: No acute osseous abnormality identified. VISUALIZED UPPER ABDOMEN: Unremarkable. OTHER FINDINGS: IVC filter. IMPRESSION: Cardiomegaly. Mild pulmonary venous congestion. Linear atelectasis, left lung base. IVC filter.
[2017-08-20 20:00] LABS: HEMOGLOBIN 9.3 g/dL (11.0-16.0); MEAN CORPUSCULAR HEMOGLOBIN 31.5 pg (27.0-31.0); MEAN CORPUSCULAR HGB CONC 32.5 g/dL (33.0-37.0); MEAN PLATELET VOLUME 8.2 fL (7.2-11.7); RBC 2.96 Mil/uL (3.80-5.20); RED CELL DISTRIBUTION WIDTH 16.5 % (11.5-14.5); WHITE BLOOD COUNT 7.4 K/uL (4.8-10.8)
[2017-08-20 20:02] LABS: INR 1.1; PROTHROMBIN TIME 12.1 SECONDS (9.7-12.2)
[2017-08-20 20:18] LABS: ALB/GLOB RATIO 1.2 (1.0-2.1); ALBUMIN 3.7 g/dL (3.5-5.0); CALCIUM 6.5 mg/dl (8.6-10.4)
--- NOTE | 2017-08-20 20:27 | CP.PCM.PN ---
Subjective - Date & Time of Evaluation Date of Evaluation: 08/20/17 Time of Evaluation: 15:00 - Subjective Subjective: SEEN ON RENAL F/U SEEN ON HD FEELS IMPROVED ON HD M W F AND SAT Objective - Vital Signs/Intake and Output Vital Signs (last 24 hours): Temp Pulse Resp BP Pulse Ox 97.5 F L 81 12 162/82 H 100 08/20/17 18:15 08/20/17 18:15 08/20/17 18:15 08/20/17 18:15 08/20/17 18:15 - Medications Medications: Current Medications Betamethasone/Clotrimazole (Lotrisone) 0 gm TOP BID [facility] Stop: 08/25/17 10:01 Last Admin: 08/20/17 19:03 Dose: Not Given Calcium Acetate (Phoslo) 667 mg PO TID [facility] Last Admin: 08/20/17 20:09 Dose: 667 mg Clonidine HCl (Catapres) 0.3 mg PO BID [facility] Last Admin: 08/20/17 19:03 Dose: Not Given Dextrose (Dextrose 50% Inj) 0 ml IV STAT PRN; Protocol PRN Reason: Hypoglycemia Protocol Dextrose (Glutose 15) 15 gm PO ONCE PRN; Protocol PRN Reason: Hypoglycemia Protocol Last Admin: 08/19/17 08:20 Dose: 15 gm Diphenhydramine HCl (Benadryl) 25 mg IVP Q3 PRN PRN Reason: for itching Last Admin: 08/20/17 18:56 Dose: 25 mg Diphenhydramine HCl (Benadryl) 25 mg IM Q3H PRN PRN Reason: Itching / Pruritus Last Admin: 08/19/17 21:50 Dose: 25 mg Ergocalciferol (Drisdol 50,000 Intl Units Cap) 1 cap PO Q7D [facility] Last Admin: 08/17/17 12:15 Dose: Not Given Gabapentin (Neurontin) 300 mg PO BID [facility] Last Admin: 08/20/17 09:55 Dose: 300 mg Glucagon (Glucagen Diagnostic Kit) 1 mg IM STAT PRN; Protocol PRN Reason: Hypoglycemia Protocol Hydromorphone HCl (Dilaudid) 2 mg IVP Q3 PRN PRN Reason: Pain, severe (8-10) Last Admin: 08/20/17 18:57 Dose: 2 mg Hydromorphone HCl (Dilaudid) 2 mg IM Q3H PRN PRN Reason: Pain, severe (8-10) Last Admin: 08/19/17 21:50 Dose: 2 mg Dextrose (Dextrose 5% In Water 1000 Ml) 1,000 mls @ 0 mls/hr IV .Q0M PRN; Protocol; Per Protocol PRN Reason: Hypoglycemia Protocol Vancomycin HCl 500 mg/ Sodium (Chloride) 100 mls @ 100 mls/hr IVPB MWF [facility] PRN Reason: Protocol Last Admin: 08/20/17 11:32 Dose: Not Given Insulin Detemir (Levemir) 12 unit SC Q12 [facility] Last Admin: 08/20/17 11:30 Dose: Not Given Insulin Human Regular (Novolin R) 0 unit SC ACHS [facility] PRN Reason: Protocol Last Admin: 08/20/17 19:03 Dose: Not Given Metoclopramide HCl (Reglan) 10 mg IVP DAILY PRN PRN Reason: Nausea/Vomiting Metronidazole (Flagyl) 250 mg PO Q8H [facility] Stop: 08/24/17 17:46 Last Admin: 08/20/17 19:03 Dose: Not Given Nifedipine (Procardia Xl) 30 mg PO DAILY [facility] Last Admin: 08/20/17 11:35 Dose: 30 mg Pantoprazole Sodium (Protonix Ec Tab) 40 mg PO DAILY [facility] Last Admin: 08/20/17 09:55 Dose: 40 mg Vitamin B Complex/Vit C/Folic Acid (Nephro-Vamshi) 1 tab PO 0800 [facility] Last Admin: 08/20/17 08:12 Dose: 1 tab - Labs Labs: 08/20/17 19:48 08/20/17 19:48 PT 12.1 SECONDS (9.7-12.2) 08/20/17 19:48 INR 1.1 08/20/17 19:48 APTT 32 SECONDS (21-34) 08/20/17 19:48 Assessment and Plan - Assessment and Plan (Free Text) Assessment: ESRD ON HD M W F AND SAT .. TO BE C/O ANEMIA OF CKD .. ON EPO INFECTION ON IVAB MMP P : C/O CURRENT CARE C/O PRESENT MANAGEMNET
[2017-08-20] MEDS ORDERED: DiphenhydrAMINE 50 mg/ml Inj IVP ONE (20:49)
--- NOTE | 2017-08-20 23:57 | CARD ---
APPROVED REPORT EKG Measurement Heart [id number] <Conclusion> Normal sinus rhythm Moderate voltage criteria for LVH, may be normal variant Nonspecific ST & T wave abnormality Abnormal ECG
[2017-08-21] MEDS: DiphenhydrAMINE 50 mg/ml Inj IVP PRN ×7 (01:07→19:59)
--- NOTE | 2017-08-21 04:33 | OP ---
PROCEDURE DATE: 08/20/2017 PREOPERATIVE DIAGNOSIS: Lack of venous access. POSTOPERATIVE DIAGNOSIS: Lack of venous access. PROCEDURE CARRIED OUT: Placement of Port-A-Cath, right subclavian vein. SURGEON: Kevin Alicia MD SALES AND MARKETING AGENT: Dr. Padilla. ANESTHESIOLOGIST: Mr. Casanova. INDICATIONS: The patient is a 31-year-old woman on dialysis, left arm fistula which is years. OPERATIVE FINDINGS: The jugular vein was occluded. We were unable to advance the catheter beyond the initial puncture site. We then went to the subclavian vein, punctured this using micropuncture technique. We then using a variety of wires including an Amplatz wire, eventually were able to place the catheter with the tip in the superior vena cava-right atrial junction and the port applied on the chest wall. A variety of devices we had to use, we had to take an angiogram with this tortuosity and inability to pass the catheter down. After the angiogram had been done, we saw the anatomy, we were able to manipulate into position. We then secured the port in the subcutaneous pouch on the chest wall and thus closed the skin. After closure of the skin, the port was accessed, the procedure was terminated. Blood loss of the procedure was approximately 50 to 75 mL. Operation carried out is PowerPort in right subclavian vein. Kevin Alicia Jr., MD
[2017-08-21 07:40] LABS: BASO # 0.1 K/uL (0.0-0.2); EOS # 0.6 K/uL (0.0-0.7); EOS % 10.3 % (0.0-4.0); HEMOGLOBIN 8.4 g/dL (11.0-16.0); LYMPH # 0.9 K/uL (1.0-4.3); LYMPH % 14.9 % (20.0-40.0); MEAN CELL VOLUME 98.1 fL (81.0-99.0); MEAN CORPUSCULAR HGB CONC 32.7 g/dL (33.0-37.0); MEAN PLATELET VOLUME 8.3 fL (7.2-11.7); MONO # 0.5 K/uL (0.0-0.8); MONO % 9.3 % (0.0-10.0); NEUT # 3.7 K/uL (1.8-7.0); NEUT % 64.5 % (50.0-75.0); NRBC % 0.1 % (0.0-2.0); RBC 2.64 Mil/uL (3.80-5.20); RED CELL DISTRIBUTION WIDTH 16.5 % (11.5-14.5); WHITE BLOOD COUNT 5.7 K/uL (4.8-10.8)
[2017-08-21] MEDS: Multivitamin Vitamin B Complex (Nephro-Vite) Tab PO SCH (08:29)
[2017-08-21] MEDS: (Novolin R) Insulin Human Regular 100 units/ml vial SC SCH ×4 (08:30→21:46)
[2017-08-21 08:32] LABS: ALB/GLOB RATIO 1.2 (1.0-2.1); ALBUMIN 3.7 g/dL (3.5-5.0); CALCIUM 6.5 mg/dl (8.6-10.4)
--- NOTE | 2017-08-21 08:33 | CP.PCM.PN ---
Subjective - Date & Time of Evaluation Date of Evaluation: 08/21/17 Objective - Vital Signs/Intake and Output Vital Signs (last 24 hours): Temp Pulse Resp BP Pulse Ox 97.6 F 101 H 20 152/78 H 96 08/21/17 00:30 08/21/17 00:30 08/21/17 00:30 08/21/17 00:30 08/21/17 00:30 - Medications Medications: Current Medications Betamethasone/Clotrimazole (Lotrisone) 0 gm TOP BID [facility] Stop: 08/25/17 10:01 Last Admin: 08/20/17 19:03 Dose: Not Given Calcium Acetate (Phoslo) 667 mg PO ACTID [facility] Clonidine HCl (Catapres) 0.3 mg PO BID [facility] Last Admin: 08/20/17 19:03 Dose: Not Given Dextrose (Dextrose 50% Inj) 0 ml IV STAT PRN; Protocol PRN Reason: Hypoglycemia Protocol Dextrose (Glutose 15) 15 gm PO ONCE PRN; Protocol PRN Reason: Hypoglycemia Protocol Last Admin: 08/19/17 08:20 Dose: 15 gm Diphenhydramine HCl (Benadryl) 25 mg IVP Q3 PRN PRN Reason: for itching Last Admin: 08/21/17 07:17 Dose: 25 mg Diphenhydramine HCl (Benadryl) 25 mg IM Q3H PRN PRN Reason: Itching / Pruritus Last Admin: 08/19/17 21:50 Dose: 25 mg Ergocalciferol (Drisdol 50,000 Intl Units Cap) 1 cap PO Q7D [facility] Last Admin: 08/17/17 12:15 Dose: Not Given Gabapentin (Neurontin) 300 mg PO BID [facility] Last Admin: 08/20/17 21:56 Dose: Not Given Glucagon (Glucagen Diagnostic Kit) 1 mg IM STAT PRN; Protocol PRN Reason: Hypoglycemia Protocol Hydromorphone HCl (Dilaudid) 2 mg IM Q3H PRN PRN Reason: Pain, severe (8-10) Last Admin: 08/21/17 07:17 Dose: 2 mg Hydromorphone HCl (Dilaudid) 2 mg IVP Q4 PRN PRN Reason: Pain, severe (8-10) Last Admin: 08/20/17 22:05 Dose: 2 mg Dextrose (Dextrose 5% In Water 1000 Ml) 1,000 mls @ 0 mls/hr IV .Q0M PRN; Protocol; Per Protocol PRN Reason: Hypoglycemia Protocol Vancomycin HCl 500 mg/ Sodium (Chloride) 100 mls @ 100 mls/hr IVPB MWF [facility] PRN Reason: Protocol Last Admin: 08/21/17 01:07 Dose: 100 mls/hr Insulin Detemir (Levemir) 12 unit SC Q12 [facility] Last Admin: 08/20/17 22:33 Dose: 12 unit Insulin Human Regular (Novolin R) 0 unit SC ACHS [facility] PRN Reason: Protocol Last Admin: 08/20/17 21:56 Dose: Not Given Metoclopramide HCl (Reglan) 10 mg IVP DAILY PRN PRN Reason: Nausea/Vomiting Metronidazole (Flagyl) 250 mg PO Q8H [facility] Stop: 08/24/17 17:46 Last Admin: 08/21/17 01:52 Dose: 250 mg Nifedipine (Procardia Xl) 30 mg PO DAILY [facility] Last Admin: 08/20/17 11:35 Dose: 30 mg Pantoprazole Sodium (Protonix Ec Tab) 40 mg PO DAILY [facility] Last Admin: 08/20/17 09:55 Dose: 40 mg Vitamin B Complex/Vit C/Folic Acid (Nephro-Vamshi) 1 tab PO 0800 [facility] Last Admin: 08/20/17 08:12 Dose: 1 tab - Labs Labs: 08/21/17 07:21 08/21/17 07:21 PT 12.1 SECONDS (9.7-12.2) 08/20/17 19:48 INR 1.1 08/20/17 19:48 APTT 32 SECONDS (21-34) 08/20/17 19:48
[2017-08-21] MEDS: Insulin Detemir 100 units/ml Vial (Levemir) SC SCH ×2 (10:35→21:46)
[2017-08-21] MEDS: NIFEdipine 30 mg ER Tab PO SCH (10:36)
[2017-08-21] MEDS: Pantoprazole 40 mg EC Tab PO SCH (10:36)
[2017-08-21] MEDS: Clotrimazole/Betamethasone Cream(15 gm) TOP SCH ×2 (10:38→17:02)
--- NOTE | 2017-08-21 11:09 | CP.PCM.PN ---
Subjective - Date & Time of Evaluation Date of Evaluation: 08/21/17 Time of Evaluation: 08:00 - Subjective Subjective: events noted iv vanco reordered Post HD Objective - Vital Signs/Intake and Output Vital Signs (last 24 hours): Temp Pulse Resp BP Pulse Ox 97.7 F 103 H 18 186/72 H 100 08/21/17 08:15 08/21/17 08:15 08/21/17 08:15 08/21/17 08:15 08/21/17 08:15 - Medications Medications: Current Medications Betamethasone/Clotrimazole (Lotrisone) 0 gm TOP BID [facility] Stop: 08/25/17 10:01 Last Admin: 08/21/17 10:38 Dose: 1 applic Calcium Acetate (Phoslo) 667 mg PO TIDCC [facility] Last Admin: 08/21/17 10:37 Dose: Not Given Clonidine HCl (Catapres) 0.3 mg PO BID [facility] Last Admin: 08/21/17 10:36 Dose: 0.3 mg Dextrose (Dextrose 50% Inj) 0 ml IV STAT PRN; Protocol PRN Reason: Hypoglycemia Protocol Dextrose (Glutose 15) 15 gm PO ONCE PRN; Protocol PRN Reason: Hypoglycemia Protocol Last Admin: 08/19/17 08:20 Dose: 15 gm Diphenhydramine HCl (Benadryl) 25 mg IVP Q3 PRN PRN Reason: for itching Last Admin: 08/21/17 10:34 Dose: 25 mg Diphenhydramine HCl (Benadryl) 25 mg IM Q3H PRN PRN Reason: Itching / Pruritus Last Admin: 08/19/17 21:50 Dose: 25 mg Ergocalciferol (Drisdol 50,000 Intl Units Cap) 1 cap PO Q7D [facility] Last Admin: 08/17/17 12:15 Dose: Not Given Gabapentin (Neurontin) 300 mg PO BID [facility] Last Admin: 08/21/17 10:36 Dose: 300 mg Glucagon (Glucagen Diagnostic Kit) 1 mg IM STAT PRN; Protocol PRN Reason: Hypoglycemia Protocol Hydromorphone HCl (Dilaudid) 2 mg IM Q3H PRN PRN Reason: Pain, severe (8-10) Last Admin: 08/21/17 10:35 Dose: 2 mg Hydromorphone HCl (Dilaudid) 2 mg IVP Q4 PRN PRN Reason: Pain, severe (8-10) Last Admin: 08/20/17 22:05 Dose: 2 mg Dextrose (Dextrose 5% In Water 1000 Ml) 1,000 mls @ 0 mls/hr IV .Q0M PRN; Protocol; Per Protocol PRN Reason: Hypoglycemia Protocol Vancomycin HCl 500 mg/ Sodium (Chloride) 100 mls @ 100 mls/hr IVPB MWF [facility] PRN Reason: Protocol Last Admin: 08/21/17 01:07 Dose: 100 mls/hr Insulin Detemir (Levemir) 12 unit SC Q12 [facility] Last Admin: 08/21/17 10:35 Dose: 12 unit Insulin Human Regular (Novolin R) 0 unit SC ACHS [facility] PRN Reason: Protocol Last Admin: 08/21/17 08:30 Dose: 10 unit Metoclopramide HCl (Reglan) 10 mg IVP DAILY PRN PRN Reason: Nausea/Vomiting Metronidazole (Flagyl) 250 mg PO Q8H [facility] Stop: 08/24/17 17:46 Last Admin: 08/21/17 10:36 Dose: 250 mg Nifedipine (Procardia Xl) 30 mg PO DAILY [facility] Last Admin: 08/21/17 10:36 Dose: 30 mg Pantoprazole Sodium (Protonix Ec Tab) 40 mg PO DAILY [facility] Last Admin: 08/21/17 10:36 Dose: 40 mg Vitamin B Complex/Vit C/Folic Acid (Nephro-Vamshi) 1 tab PO 0800 [facility] Last Admin: 08/21/17 08:29 Dose: 1 tab - Labs Labs: 08/21/17 07:21 08/21/17 07:21 PT 12.1 SECONDS (9.7-12.2) 08/20/17 19:48 INR 1.1 08/20/17 19:48 APTT 32 SECONDS (21-34) 08/20/17 19:48 - Constitutional Appears: Non-toxic - Head Exam Head Exam: NORMOCEPHALIC - Eye Exam Eye Exam: PERRL - ENT Exam ENT Exam: Mucous Membranes Dry - Neck Exam Neck Exam: absent: Lymphadenopathy - Respiratory Exam Respiratory Exam: Decreased Breath Sounds - Cardiovascular Exam Cardiovascular Exam: REGULAR RHYTHM - GI/Abdominal Exam GI & Abdominal Exam: Distended - Rectal Exam Rectal Exam: Deferred Assessment and Plan - Assessment and Plan (Free Text) Plan: cont rx / wound care podiatry follow up
--- NOTE | 2017-08-21 11:35 | CP.PCM.PN ---
Subjective - Date & Time of Evaluation Date of Evaluation: 08/21/17 Time of Evaluation: 11:31 - Subjective Subjective: 31 y/o female pt seen at bedside this morning for painful 3rd digits and lateral hallucal nail border of left foot, 1 month s/p 3rd digit total nail avulsion and left hallux partial nail avulsion. Patient says her pain is well managed with meds at this time. Denies noticing any drainage from the toes or any redness or swelling. Patient denies having any other pedal complaints. She denies F/C/N/V/CP/SOB. Objective - Vital Signs/Intake and Output Vital Signs (last 24 hours): Temp Pulse Resp BP Pulse Ox 97.7 F 103 H 18 186/72 H 100 08/21/17 08:15 08/21/17 08:15 08/21/17 08:15 08/21/17 08:15 08/21/17 08:15 - Medications Medications: Current Medications Betamethasone/Clotrimazole (Lotrisone) 0 gm TOP BID [facility] Stop: 08/25/17 10:01 Last Admin: 08/21/17 10:38 Dose: 1 applic Calcium Acetate (Phoslo) 667 mg PO TIDCC [facility] Last Admin: 08/21/17 10:37 Dose: Not Given Clonidine HCl (Catapres) 0.3 mg PO BID [facility] Last Admin: 08/21/17 10:36 Dose: 0.3 mg Dextrose (Dextrose 50% Inj) 0 ml IV STAT PRN; Protocol PRN Reason: Hypoglycemia Protocol Dextrose (Glutose 15) 15 gm PO ONCE PRN; Protocol PRN Reason: Hypoglycemia Protocol Last Admin: 08/19/17 08:20 Dose: 15 gm Diphenhydramine HCl (Benadryl) 25 mg IVP Q3 PRN PRN Reason: for itching Last Admin: 08/21/17 10:34 Dose: 25 mg Diphenhydramine HCl (Benadryl) 25 mg IM Q3H PRN PRN Reason: Itching / Pruritus Last Admin: 08/19/17 21:50 Dose: 25 mg Ergocalciferol (Drisdol 50,000 Intl Units Cap) 1 cap PO Q7D [facility] Last Admin: 08/17/17 12:15 Dose: Not Given Gabapentin (Neurontin) 300 mg PO BID [facility] Last Admin: 08/21/17 10:36 Dose: 300 mg Glucagon (Glucagen Diagnostic Kit) 1 mg IM STAT PRN; Protocol PRN Reason: Hypoglycemia Protocol Hydromorphone HCl (Dilaudid) 2 mg IM Q3H PRN PRN Reason: Pain, severe (8-10) Last Admin: 08/21/17 10:35 Dose: 2 mg Hydromorphone HCl (Dilaudid) 2 mg IVP Q4 PRN PRN Reason: Pain, severe (8-10) Last Admin: 08/20/17 22:05 Dose: 2 mg Dextrose (Dextrose 5% In Water 1000 Ml) 1,000 mls @ 0 mls/hr IV .Q0M PRN; Protocol; Per Protocol PRN Reason: Hypoglycemia Protocol Vancomycin HCl 500 mg/ Sodium (Chloride) 100 mls @ 100 mls/hr IVPB MWF [facility] PRN Reason: Protocol Last Admin: 08/21/17 01:07 Dose: 100 mls/hr Insulin Detemir (Levemir) 12 unit SC Q12 [facility] Last Admin: 08/21/17 10:35 Dose: 12 unit Insulin Human Regular (Novolin R) 0 unit SC ACHS [facility] PRN Reason: Protocol Last Admin: 08/21/17 08:30 Dose: 10 unit Metoclopramide HCl (Reglan) 10 mg IVP DAILY PRN PRN Reason: Nausea/Vomiting Metronidazole (Flagyl) 250 mg PO Q8H [facility] Stop: 08/24/17 17:46 Last Admin: 08/21/17 10:36 Dose: 250 mg Nifedipine (Procardia Xl) 30 mg PO DAILY [facility] Last Admin: 08/21/17 10:36 Dose: 30 mg Pantoprazole Sodium (Protonix Ec Tab) 40 mg PO DAILY [facility] Last Admin: 08/21/17 10:36 Dose: 40 mg Vitamin B Complex/Vit C/Folic Acid (Nephro-Vamshi) 1 tab PO 0800 [facility] Last Admin: 08/21/17 08:29 Dose: 1 tab - Labs Labs: 08/21/17 07:21 08/21/17 07:21 PT 12.1 SECONDS (9.7-12.2) 08/20/17 19:48 INR 1.1 08/20/17 19:48 APTT 32 SECONDS (21-34) 08/20/17 19:48 - Constitutional Appears: Well, Non-toxic, No Acute Distress - Extremities Exam Additional comments: Bilateral lower extremity exam Vasc: DP and PT pulses palpable 2/4 bilaterally, [employer] less than 3 seconds to all digits bilaterally, mild localized non-pitting edema noted to the 3rd digits bilaterally DERM: Left: Small open wound noted to Left 3rd digit distal aspect at the site of nail avulsion measuring 0.3cm x 0.3cm x 0.2cm with mild erythema around the site of nail avulsion. No Probe to bone. No drainage is noted. No malodor is noted. No sign of acute infection is noted. Right:No open wound is noted to the right 3rd digit. No drainage is noted. Mild erythema is noted to the right 3rd digit. No sign of acute infection is noted. No malodor is noted. Ortho: tenderness noted to the 3rd digit nail beds B/L. Mild tenderness to left hallux at lateral nail border Neuro: gross sensation intact - Neurological Exam Neurological Exam: Alert, Awake, Oriented x3 - Psychiatric Exam Psychiatric exam: Normal Affect, Normal Mood Assessment and Plan - Assessment and Plan (Free Text) Assessment: 31 year old female patient 1 month s/p bilateral 3rd digit total nail avulsion and left great toe partial nail avulsion, well healing but residual pain to left hallucal lateral nail border and bilateral 3rd digit toenails Plan: Patient examined and evaluated at bedside Discussed in detail with attending Dr. Tilley Charts, labs, vitals reviewed -afebrile, WBC 5.7 Surgical incisions cleansed with peroxide and dressed with betadine, DSD Surgical site to be cleansed with peroxide and dressed with 4x4 and kerlix Q8H Podiatry will continue to follow patient in house left hallux lateral border matrixectomy was cancelled yesterday, will be rescheduled to later date Will continue to monitor patient while in house
--- NOTE | 2017-08-21 14:02 | CP.PCM.PN ---
Subjective - Date & Time of Evaluation Date of Evaluation: 08/21/17 Time of Evaluation: 13:59 - Subjective Subjective: Progress Note for Dr. Sexton's Service Pt seen and examined at bedside. She went to OR yesterday for port placement, which was successful. She states that she continues to have diffuse pain; no interval changes. No fevers or chills. Objective - Vital Signs/Intake and Output Vital Signs (last 24 hours): Temp Pulse Resp BP Pulse Ox 97.7 F 103 H 18 186/72 H 100 08/21/17 08:15 08/21/17 08:15 08/21/17 08:15 08/21/17 08:15 08/21/17 08:15 - Medications Medications: Current Medications Betamethasone/Clotrimazole (Lotrisone) 0 gm TOP BID [facility] Stop: 08/25/17 10:01 Last Admin: 08/21/17 10:38 Dose: 1 applic Calcium Acetate (Phoslo) 667 mg PO TIDCC [facility] Last Admin: 08/21/17 10:37 Dose: Not Given Clonidine HCl (Catapres) 0.3 mg PO BID [facility] Last Admin: 08/21/17 10:36 Dose: 0.3 mg Dextrose (Dextrose 50% Inj) 0 ml IV STAT PRN; Protocol PRN Reason: Hypoglycemia Protocol Dextrose (Glutose 15) 15 gm PO ONCE PRN; Protocol PRN Reason: Hypoglycemia Protocol Last Admin: 08/19/17 08:20 Dose: 15 gm Diphenhydramine HCl (Benadryl) 25 mg IVP Q3 PRN PRN Reason: for itching Last Admin: 08/21/17 13:57 Dose: 25 mg Diphenhydramine HCl (Benadryl) 25 mg IM Q3H PRN PRN Reason: Itching / Pruritus Last Admin: 08/19/17 21:50 Dose: 25 mg Ergocalciferol (Drisdol 50,000 Intl Units Cap) 1 cap PO Q7D [facility] Last Admin: 08/17/17 12:15 Dose: Not Given Gabapentin (Neurontin) 300 mg PO BID [facility] Last Admin: 08/21/17 10:36 Dose: 300 mg Glucagon (Glucagen Diagnostic Kit) 1 mg IM STAT PRN; Protocol PRN Reason: Hypoglycemia Protocol Hydromorphone HCl (Dilaudid) 2 mg IM Q3H PRN PRN Reason: Pain, severe (8-10) Last Admin: 08/21/17 13:58 Dose: 2 mg Hydromorphone HCl (Dilaudid) 2 mg IVP Q4 PRN PRN Reason: Pain, severe (8-10) Last Admin: 08/20/17 22:05 Dose: 2 mg Dextrose (Dextrose 5% In Water 1000 Ml) 1,000 mls @ 0 mls/hr IV .Q0M PRN; Protocol; Per Protocol PRN Reason: Hypoglycemia Protocol Vancomycin HCl 500 mg/ Sodium (Chloride) 100 mls @ 100 mls/hr IVPB MWF [facility] PRN Reason: Protocol Last Admin: 08/21/17 01:07 Dose: 100 mls/hr Insulin Detemir (Levemir) 12 unit SC Q12 [facility] Last Admin: 08/21/17 10:35 Dose: 12 unit Insulin Human Regular (Novolin R) 0 unit SC ACHS [facility] PRN Reason: Protocol Last Admin: 08/21/17 12:19 Dose: 4 unit Metoclopramide HCl (Reglan) 10 mg IVP DAILY PRN PRN Reason: Nausea/Vomiting Metronidazole (Flagyl) 250 mg PO Q8H [facility] Stop: 08/24/17 17:46 Last Admin: 08/21/17 10:36 Dose: 250 mg Nifedipine (Procardia Xl) 30 mg PO DAILY [facility] Last Admin: 08/21/17 10:36 Dose: 30 mg Pantoprazole Sodium (Protonix Ec Tab) 40 mg PO DAILY [facility] Last Admin: 08/21/17 10:36 Dose: 40 mg Vitamin B Complex/Vit C/Folic Acid (Nephro-Main) 1 tab PO 0800 [facility] Last Admin: 08/21/17 08:29 Dose: 1 tab - Labs Labs: 08/21/17 07:21 08/21/17 07:21 PT 12.1 SECONDS (9.7-12.2) 08/20/17 19:48 INR 1.1 08/20/17 19:48 APTT 32 SECONDS (21-34) 08/20/17 19:48 - Constitutional Appears: No Acute Distress - Head Exam Head Exam: ATRAUMATIC, NORMOCEPHALIC - Eye Exam Eye Exam: EOMI - ENT Exam ENT Exam: Mucous Membranes Moist - Respiratory Exam Respiratory Exam: Clear to Ausculation Bilateral, NORMAL BREATHING PATTERN - Cardiovascular Exam Cardiovascular Exam: REGULAR RHYTHM, +S1, +S2 - GI/Abdominal Exam GI & Abdominal Exam: Soft. absent: Guarding, Tenderness - Extremities Exam Additional comments: dressing changed today by podiatry- C/D/I - Neurological Exam Neurological Exam: Alert, Awake, Oriented x3 - Skin Skin Exam: Dry, Warm Assessment and Plan - Assessment and Plan (Free Text) Plan: DM with gastroparesis- abdominal pain Levemir 12U SC q12hrs ISS- medium dose neurontin 300mg PO BID Poorly controlled sugars Continue POC monitoring hypoglycemia protocol Reglan 10mg PO daily Flagyl- 250mg PO q8hrs Intractable pain Patient states she has pain all over body, although she appears to be very comfortable Patient with hx of non-compliance and drug seeking habits Dilaudid 2mg IVP Q3hrs w/ benadryl 25mg IV q3hrs prn- As per Dr. Sexton OR 08/20 port insertion successful with Dr. Alicia Status Post Nail Avulsion with possible infectious complications Podiatry on board- Dr. Treva Mcgrathone Patient to OR tomorrow morning at 10 AM for left hallux nail matrixectomy NPO past midnight ID consulted- Dr. Pinto- shari appreciated Possible OM Vancomycin 500mg IV daily- renally adjusted post HD as per ID Anemia of chronic disease Dr. Pierce has seen patient in the past no evidence of nutritional deficiency anemia of chronic kidney disease on EPO per renal HTN Clonidine 0.3mg PO BID Nifedipine 30mg PO daily ESRD Dr. Phillips consulted HD M/// Will follow up recommendations nephro-main 1 tablet PO daily Procrit Creatinine 6.3 08/21 Nausea Reglan 10mg PO daily zofran 4mg IV q8hrs Hepatitis Diagnosed on previous admission AST/ALT normal this admission Prophylaxis anticoagulation on hold for OR Protonix 40mg PO daily Zofran prn nausea Case discussed with Dr. Sexton. All management as per Dr. Sexton
--- NOTE | 2017-08-21 14:05 | CP.PCM.PN ---
Subjective - Date & Time of Evaluation Date of Evaluation: 08/21/17 Time of Evaluation: 07:15 - Subjective Subjective: Vascular Surgery Note for Dr. Alicia Patient seen and examined at bedside. no acute event overnight. Tony resting in bed comfortably. She is s/p portacath insertion POD#1. Patient has no complaints at this time. Objective - Vital Signs/Intake and Output Vital Signs (last 24 hours): Temp Pulse Resp BP Pulse Ox 97.7 F 103 H 18 186/72 H 100 08/21/17 08:15 08/21/17 08:15 08/21/17 08:15 08/21/17 08:15 08/21/17 08:15 - Medications Medications: Current Medications Betamethasone/Clotrimazole (Lotrisone) 0 gm TOP BID [facility] Stop: 08/25/17 10:01 Last Admin: 08/21/17 10:38 Dose: 1 applic Calcium Acetate (Phoslo) 667 mg PO TIDCC [facility] Last Admin: 08/21/17 10:37 Dose: Not Given Clonidine HCl (Catapres) 0.3 mg PO BID [facility] Last Admin: 08/21/17 10:36 Dose: 0.3 mg Dextrose (Dextrose 50% Inj) 0 ml IV STAT PRN; Protocol PRN Reason: Hypoglycemia Protocol Dextrose (Glutose 15) 15 gm PO ONCE PRN; Protocol PRN Reason: Hypoglycemia Protocol Last Admin: 08/19/17 08:20 Dose: 15 gm Diphenhydramine HCl (Benadryl) 25 mg IVP Q3 PRN PRN Reason: for itching Last Admin: 08/21/17 13:57 Dose: 25 mg Diphenhydramine HCl (Benadryl) 25 mg IM Q3H PRN PRN Reason: Itching / Pruritus Last Admin: 08/19/17 21:50 Dose: 25 mg Ergocalciferol (Drisdol 50,000 Intl Units Cap) 1 cap PO Q7D [facility] Last Admin: 08/17/17 12:15 Dose: Not Given Gabapentin (Neurontin) 300 mg PO BID [facility] Last Admin: 08/21/17 10:36 Dose: 300 mg Glucagon (Glucagen Diagnostic Kit) 1 mg IM STAT PRN; Protocol PRN Reason: Hypoglycemia Protocol Hydromorphone HCl (Dilaudid) 2 mg IM Q3H PRN PRN Reason: Pain, severe (8-10) Last Admin: 08/21/17 13:58 Dose: 2 mg Hydromorphone HCl (Dilaudid) 2 mg IVP Q4 PRN PRN Reason: Pain, severe (8-10) Last Admin: 08/20/17 22:05 Dose: 2 mg Dextrose (Dextrose 5% In Water 1000 Ml) 1,000 mls @ 0 mls/hr IV .Q0M PRN; Protocol; Per Protocol PRN Reason: Hypoglycemia Protocol Vancomycin HCl 500 mg/ Sodium (Chloride) 100 mls @ 100 mls/hr IVPB MWF [facility] PRN Reason: Protocol Last Admin: 08/21/17 01:07 Dose: 100 mls/hr Insulin Detemir (Levemir) 12 unit SC Q12 [facility] Last Admin: 08/21/17 10:35 Dose: 12 unit Insulin Human Regular (Novolin R) 0 unit SC ACHS [facility] PRN Reason: Protocol Last Admin: 08/21/17 12:19 Dose: 4 unit Metoclopramide HCl (Reglan) 10 mg IVP DAILY PRN PRN Reason: Nausea/Vomiting Metronidazole (Flagyl) 250 mg PO Q8H [facility] Stop: 08/24/17 17:46 Last Admin: 08/21/17 10:36 Dose: 250 mg Nifedipine (Procardia Xl) 30 mg PO DAILY [facility] Last Admin: 08/21/17 10:36 Dose: 30 mg Pantoprazole Sodium (Protonix Ec Tab) 40 mg PO DAILY [facility] Last Admin: 08/21/17 10:36 Dose: 40 mg Vitamin B Complex/Vit C/Folic Acid (Nephro-Vamshi) 1 tab PO 0800 [facility] Last Admin: 08/21/17 08:29 Dose: 1 tab - Labs Labs: 08/21/17 07:21 08/21/17 07:21 PT 12.1 SECONDS (9.7-12.2) 08/20/17 19:48 INR 1.1 08/20/17 19:48 APTT 32 SECONDS (21-34) 08/20/17 19:48 - Constitutional Appears: No Acute Distress - Head Exam Head Exam: ATRAUMATIC, NORMOCEPHALIC - Eye Exam Eye Exam: Normal appearance - ENT Exam ENT Exam: Mucous Membranes Moist - Respiratory Exam Respiratory Exam: NORMAL BREATHING PATTERN - Cardiovascular Exam Cardiovascular Exam: Tachycardia - GI/Abdominal Exam GI & Abdominal Exam: Soft, Normal Bowel Sounds. absent: Tenderness - Neurological Exam Neurological Exam: Alert, Awake, Oriented x3 - Psychiatric Exam Psychiatric exam: Normal Affect, Normal Mood - Skin Skin Exam: Dry, Warm Additional comments: right sided port in place area clean dry and intact without evidence of erythema or bleeding
--- NOTE | 2017-08-21 19:32 | CP.PCM.PN ---
Subjective - Date & Time of Evaluation Date of Evaluation: 08/21/17 Time of Evaluation: 08:40 - Subjective Subjective: clinically same Objective - Vital Signs/Intake and Output Vital Signs (last 24 hours): Temp Pulse Resp BP Pulse Ox 97.6 F 97 H 20 113/85 96 08/21/17 16:27 08/21/17 16:27 08/21/17 16:27 08/21/17 16:27 08/21/17 16:27 - Medications Medications: Current Medications Betamethasone/Clotrimazole (Lotrisone) 0 gm TOP BID [facility] Stop: 08/25/17 10:01 Last Admin: 08/21/17 17:02 Dose: 1 applic Calcium Acetate (Phoslo) 667 mg PO TIDCC [facility] Last Admin: 08/21/17 16:55 Dose: 667 mg Clonidine HCl (Catapres) 0.3 mg PO BID [facility] Last Admin: 08/21/17 17:01 Dose: 0.3 mg Dextrose (Dextrose 50% Inj) 0 ml IV STAT PRN; Protocol PRN Reason: Hypoglycemia Protocol Dextrose (Glutose 15) 15 gm PO ONCE PRN; Protocol PRN Reason: Hypoglycemia Protocol Last Admin: 08/19/17 08:20 Dose: 15 gm Diphenhydramine HCl (Benadryl) 25 mg IVP Q3 PRN PRN Reason: for itching Last Admin: 08/21/17 16:55 Dose: 25 mg Diphenhydramine HCl (Benadryl) 25 mg IM Q3H PRN PRN Reason: Itching / Pruritus Last Admin: 08/19/17 21:50 Dose: 25 mg Ergocalciferol (Drisdol 50,000 Intl Units Cap) 1 cap PO Q7D [facility] Last Admin: 08/17/17 12:15 Dose: Not Given Gabapentin (Neurontin) 300 mg PO BID [facility] Last Admin: 08/21/17 17:06 Dose: 300 mg Glucagon (Glucagen Diagnostic Kit) 1 mg IM STAT PRN; Protocol PRN Reason: Hypoglycemia Protocol Hydromorphone HCl (Dilaudid) 2 mg IM Q3H PRN PRN Reason: Pain, severe (8-10) Last Admin: 08/21/17 16:58 Dose: 2 mg Hydromorphone HCl (Dilaudid) 2 mg IVP Q4 PRN PRN Reason: Pain, severe (8-10) Last Admin: 08/20/17 22:05 Dose: 2 mg Dextrose (Dextrose 5% In Water 1000 Ml) 1,000 mls @ 0 mls/hr IV .Q0M PRN; Protocol; Per Protocol PRN Reason: Hypoglycemia Protocol Vancomycin HCl 500 mg/ Sodium (Chloride) 100 mls @ 100 mls/hr IVPB MWF [facility] PRN Reason: Protocol Last Admin: 08/21/17 01:07 Dose: 100 mls/hr Insulin Detemir (Levemir) 12 unit SC Q12 [facility] Last Admin: 08/21/17 10:35 Dose: 12 unit Insulin Human Regular (Novolin R) 0 unit SC ACHS [facility] PRN Reason: Protocol Last Admin: 08/21/17 17:04 Dose: Not Given Metoclopramide HCl (Reglan) 10 mg IVP DAILY PRN PRN Reason: Nausea/Vomiting Metronidazole (Flagyl) 250 mg PO Q8H [facility] Stop: 08/24/17 17:46 Last Admin: 08/21/17 16:54 Dose: 250 mg Nifedipine (Procardia Xl) 30 mg PO DAILY [facility] Last Admin: 08/21/17 10:36 Dose: 30 mg Pantoprazole Sodium (Protonix Ec Tab) 40 mg PO DAILY [facility] Last Admin: 08/21/17 10:36 Dose: 40 mg Vitamin B Complex/Vit C/Folic Acid (Nephro-Vamshi) 1 tab PO 0800 [facility] Last Admin: 08/21/17 08:29 Dose: 1 tab - Labs Labs: 08/21/17 07:21 08/21/17 07:21 PT 12.1 SECONDS (9.7-12.2) 08/20/17 19:48 INR 1.1 08/20/17 19:48 APTT 32 SECONDS (21-34) 08/20/17 19:48
--- NOTE | 2017-08-21 22:17 | CP.PCM.PN ---
Subjective - Date & Time of Evaluation Date of Evaluation: 08/21/17 Time of Evaluation: 16:00 - Subjective Subjective: SEEN ON RENAL F/U FEELS IMPROVED ON HD M W F AND SAT AL PREVIOUS EMR REVIEWED Objective - Vital Signs/Intake and Output Vital Signs (last 24 hours): Temp Pulse Resp BP Pulse Ox 97.6 F 97 H 20 113/85 96 08/21/17 16:27 08/21/17 16:27 08/21/17 16:27 08/21/17 16:27 08/21/17 16:27 - Medications Medications: Current Medications Betamethasone/Clotrimazole (Lotrisone) 0 gm TOP BID [facility] Stop: 08/25/17 10:01 Last Admin: 08/21/17 17:02 Dose: 1 applic Calcium Acetate (Phoslo) 667 mg PO TIDCC [facility] Last Admin: 08/21/17 16:55 Dose: 667 mg Clonidine HCl (Catapres) 0.3 mg PO BID [facility] Last Admin: 08/21/17 17:01 Dose: 0.3 mg Dextrose (Dextrose 50% Inj) 0 ml IV STAT PRN; Protocol PRN Reason: Hypoglycemia Protocol Dextrose (Glutose 15) 15 gm PO ONCE PRN; Protocol PRN Reason: Hypoglycemia Protocol Last Admin: 08/19/17 08:20 Dose: 15 gm Diphenhydramine HCl (Benadryl) 25 mg IVP Q3 PRN PRN Reason: for itching Last Admin: 08/21/17 19:59 Dose: 25 mg Diphenhydramine HCl (Benadryl) 25 mg IM Q3H PRN PRN Reason: Itching / Pruritus Last Admin: 08/19/17 21:50 Dose: 25 mg Ergocalciferol (Drisdol 50,000 Intl Units Cap) 1 cap PO Q7D [facility] Last Admin: 08/17/17 12:15 Dose: Not Given Gabapentin (Neurontin) 300 mg PO BID [facility] Last Admin: 08/21/17 17:06 Dose: 300 mg Glucagon (Glucagen Diagnostic Kit) 1 mg IM STAT PRN; Protocol PRN Reason: Hypoglycemia Protocol Hydromorphone HCl (Dilaudid) 2 mg IM Q3H PRN PRN Reason: Pain, severe (8-10) Last Admin: 08/21/17 19:59 Dose: 2 mg Hydromorphone HCl (Dilaudid) 2 mg IVP Q4 PRN PRN Reason: Pain, severe (8-10) Last Admin: 08/20/17 22:05 Dose: 2 mg Dextrose (Dextrose 5% In Water 1000 Ml) 1,000 mls @ 0 mls/hr IV .Q0M PRN; Protocol; Per Protocol PRN Reason: Hypoglycemia Protocol Vancomycin HCl 500 mg/ Sodium (Chloride) 100 mls @ 100 mls/hr IVPB MWF [facility] PRN Reason: Protocol Last Admin: 08/21/17 01:07 Dose: 100 mls/hr Insulin Detemir (Levemir) 12 unit SC Q12 [facility] Last Admin: 08/21/17 21:46 Dose: Not Given Insulin Human Regular (Novolin R) 0 unit SC ACHS [facility] PRN Reason: Protocol Last Admin: 08/21/17 21:46 Dose: Not Given Metoclopramide HCl (Reglan) 10 mg IVP DAILY PRN PRN Reason: Nausea/Vomiting Metronidazole (Flagyl) 250 mg PO Q8H [facility] Stop: 08/24/17 17:46 Last Admin: 08/21/17 16:54 Dose: 250 mg Nifedipine (Procardia Xl) 30 mg PO DAILY [facility] Last Admin: 08/21/17 10:36 Dose: 30 mg Pantoprazole Sodium (Protonix Ec Tab) 40 mg PO DAILY [facility] Last Admin: 08/21/17 10:36 Dose: 40 mg Vitamin B Complex/Vit C/Folic Acid (Nephro-Vamshi) 1 tab PO 0800 [facility] Last Admin: 08/21/17 08:29 Dose: 1 tab - Labs Labs: 08/21/17 07:21 08/21/17 07:21 PT 12.1 SECONDS (9.7-12.2) 08/20/17 19:48 INR 1.1 08/20/17 19:48 APTT 32 SECONDS (21-34) 08/20/17 19:48 Assessment and Plan - Assessment and Plan (Free Text) Assessment: SEEN ON RENAL F/U FEELS IMPROVED ALL PREVIOUS EMR REVIEWED ON HD M W F AND SAT Plan: ESRD ON HD M W F AND SAT .. TO BE C/O ANEMIA OF CKD .. H/H STABLE C/O CURRENT CARE
--- NOTE | 2017-08-22 00:08 | CP.PCM.PN ---
Subjective - Date & Time of Evaluation Date of Evaluation: 08/22/17 Time of Evaluation: 09:10 - Subjective Subjective: Patient seen and evaluated BP under control Denies chest pain and dyspnea CKD on HD Objective - Vital Signs/Intake and Output Vital Signs (last 24 hours): Temp Pulse Resp BP Pulse Ox 97.6 F 97 H 20 113/85 96 08/21/17 16:27 08/21/17 16:27 08/21/17 16:27 08/21/17 16:27 08/21/17 16:27 - Medications Medications: Current Medications Betamethasone/Clotrimazole (Lotrisone) 0 gm TOP BID [facility] Stop: 08/25/17 10:01 Last Admin: 08/21/17 17:02 Dose: 1 applic Calcium Acetate (Phoslo) 667 mg PO TIDCC [facility] Last Admin: 08/21/17 16:55 Dose: 667 mg Clonidine HCl (Catapres) 0.3 mg PO BID [facility] Last Admin: 08/21/17 17:01 Dose: 0.3 mg Dextrose (Dextrose 50% Inj) 0 ml IV STAT PRN; Protocol PRN Reason: Hypoglycemia Protocol Dextrose (Glutose 15) 15 gm PO ONCE PRN; Protocol PRN Reason: Hypoglycemia Protocol Last Admin: 08/19/17 08:20 Dose: 15 gm Diphenhydramine HCl (Benadryl) 25 mg IVP Q3 PRN PRN Reason: for itching Last Admin: 08/21/17 19:59 Dose: 25 mg Diphenhydramine HCl (Benadryl) 25 mg IM Q3H PRN PRN Reason: Itching / Pruritus Last Admin: 08/19/17 21:50 Dose: 25 mg Ergocalciferol (Drisdol 50,000 Intl Units Cap) 1 cap PO Q7D [facility] Last Admin: 08/17/17 12:15 Dose: Not Given Gabapentin (Neurontin) 300 mg PO BID [facility] Last Admin: 08/21/17 17:06 Dose: 300 mg Glucagon (Glucagen Diagnostic Kit) 1 mg IM STAT PRN; Protocol PRN Reason: Hypoglycemia Protocol Hydromorphone HCl (Dilaudid) 2 mg IM Q3H PRN PRN Reason: Pain, severe (8-10) Last Admin: 08/21/17 19:59 Dose: 2 mg Hydromorphone HCl (Dilaudid) 2 mg IVP Q4 PRN PRN Reason: Pain, severe (8-10) Last Admin: 08/20/17 22:05 Dose: 2 mg Dextrose (Dextrose 5% In Water 1000 Ml) 1,000 mls @ 0 mls/hr IV .Q0M PRN; Protocol; Per Protocol PRN Reason: Hypoglycemia Protocol Vancomycin HCl 500 mg/ Sodium (Chloride) 100 mls @ 100 mls/hr IVPB MWF [facility] PRN Reason: Protocol Last Admin: 08/21/17 01:07 Dose: 100 mls/hr Insulin Detemir (Levemir) 12 unit SC Q12 [facility] Last Admin: 08/21/17 21:46 Dose: Not Given Insulin Human Regular (Novolin R) 0 unit SC ACHS [facility] PRN Reason: Protocol Last Admin: 08/21/17 21:46 Dose: Not Given Metoclopramide HCl (Reglan) 10 mg IVP DAILY PRN PRN Reason: Nausea/Vomiting Metronidazole (Flagyl) 250 mg PO Q8H [facility] Stop: 08/24/17 17:46 Last Admin: 08/21/17 16:54 Dose: 250 mg Nifedipine (Procardia Xl) 30 mg PO DAILY [facility] Last Admin: 08/21/17 10:36 Dose: 30 mg Pantoprazole Sodium (Protonix Ec Tab) 40 mg PO DAILY [facility] Last Admin: 08/21/17 10:36 Dose: 40 mg Vitamin B Complex/Vit C/Folic Acid (Nephro-Vamshi) 1 tab PO 0800 [facility] Last Admin: 08/21/17 08:29 Dose: 1 tab - Labs Labs: 08/21/17 07:21 08/21/17 07:21 PT 12.1 SECONDS (9.7-12.2) 08/20/17 19:48 INR 1.1 08/20/17 19:48 APTT 32 SECONDS (21-34) 08/20/17 19:48
[2017-08-22] MEDS ORDERED: NIFEdipine 30 mg ER Tab PO ONE (00:25)
[2017-08-22] MEDS: DiphenhydrAMINE 50 mg/ml Inj IVP PRN ×7 (00:27→21:46)
[2017-08-22 04:30] LABS: BASO # 0.1 K/uL (0.0-0.2); BASO % 1.4 % (0.0-2.0); EOS # 0.9 K/uL (0.0-0.7); EOS % 15.8 % (0.0-4.0); HEMOGLOBIN 8.3 g/dL (11.0-16.0); LYMPH # 1.3 K/uL (1.0-4.3); LYMPH % 23.6 % (20.0-40.0); MEAN CELL VOLUME 96.7 fL (81.0-99.0); MEAN CORPUSCULAR HEMOGLOBIN 30.9 pg (27.0-31.0); MEAN CORPUSCULAR HGB CONC 31.9 g/dL (33.0-37.0); MEAN PLATELET VOLUME 7.9 fL (7.2-11.7); MONO # 0.6 K/uL (0.0-0.8); MONO % 11.2 % (0.0-10.0); NEUT # 2.7 K/uL (1.8-7.0); RBC 2.7 Mil/uL (3.80-5.20); RED CELL DISTRIBUTION WIDTH 17.4 % (11.5-14.5); WHITE BLOOD COUNT 5.7 K/uL (4.8-10.8)
[2017-08-22 04:45] LABS: ALB/GLOB RATIO 1.2 (1.0-2.1); ALBUMIN 3.7 g/dL (3.5-5.0); CALCIUM 6.5 mg/dl (8.6-10.4)
--- NOTE | 2017-08-22 08:08 | CP.PCM.PN ---
Subjective - Date & Time of Evaluation Date of Evaluation: 08/22/17 Time of Evaluation: 06:10 - Subjective Subjective: clinically same Objective - Vital Signs/Intake and Output Vital Signs (last 24 hours): Temp Pulse Resp BP Pulse Ox 97.9 F 69 18 193/129 H 100 08/22/17 00:00 08/22/17 00:00 08/22/17 00:00 08/22/17 00:00 08/22/17 00:00 - Medications Medications: Current Medications Betamethasone/Clotrimazole (Lotrisone) 0 gm TOP BID [facility] Stop: 08/25/17 10:01 Last Admin: 08/21/17 17:02 Dose: 1 applic Calcium Acetate (Phoslo) 667 mg PO TIDCC [facility] Last Admin: 08/21/17 16:55 Dose: 667 mg Clonidine HCl (Catapres) 0.3 mg PO BID [facility] Last Admin: 08/21/17 17:01 Dose: 0.3 mg Dextrose (Dextrose 50% Inj) 0 ml IV STAT PRN; Protocol PRN Reason: Hypoglycemia Protocol Dextrose (Glutose 15) 15 gm PO ONCE PRN; Protocol PRN Reason: Hypoglycemia Protocol Last Admin: 08/19/17 08:20 Dose: 15 gm Diphenhydramine HCl (Benadryl) 25 mg IVP Q3 PRN PRN Reason: for itching Last Admin: 08/22/17 07:03 Dose: 25 mg Diphenhydramine HCl (Benadryl) 25 mg IM Q3H PRN PRN Reason: Itching / Pruritus Last Admin: 08/19/17 21:50 Dose: 25 mg Ergocalciferol (Drisdol 50,000 Intl Units Cap) 1 cap PO Q7D [facility] Last Admin: 08/17/17 12:15 Dose: Not Given Gabapentin (Neurontin) 300 mg PO BID [facility] Last Admin: 08/21/17 17:06 Dose: 300 mg Glucagon (Glucagen Diagnostic Kit) 1 mg IM STAT PRN; Protocol PRN Reason: Hypoglycemia Protocol Hydromorphone HCl (Dilaudid) 2 mg IM Q3H PRN PRN Reason: Pain, severe (8-10) Last Admin: 08/22/17 07:02 Dose: 2 mg Hydromorphone HCl (Dilaudid) 2 mg IVP Q4 PRN PRN Reason: Pain, severe (8-10) Last Admin: 08/20/17 22:05 Dose: 2 mg Dextrose (Dextrose 5% In Water 1000 Ml) 1,000 mls @ 0 mls/hr IV .Q0M PRN; Protocol; Per Protocol PRN Reason: Hypoglycemia Protocol Vancomycin HCl 500 mg/ Sodium (Chloride) 100 mls @ 100 mls/hr IVPB MWF [facility] PRN Reason: Protocol Last Admin: 08/21/17 01:07 Dose: 100 mls/hr Insulin Detemir (Levemir) 12 unit SC Q12 [facility] Last Admin: 08/21/17 21:46 Dose: Not Given Insulin Human Regular (Novolin R) 0 unit SC ACHS [facility] PRN Reason: Protocol Last Admin: 08/21/17 21:46 Dose: Not Given Metoclopramide HCl (Reglan) 10 mg IVP DAILY PRN PRN Reason: Nausea/Vomiting Metronidazole (Flagyl) 250 mg PO Q8H [facility] Stop: 08/24/17 17:46 Last Admin: 08/22/17 01:48 Dose: Not Given Nifedipine (Procardia Xl) 30 mg PO DAILY [facility] Last Admin: 08/21/17 10:36 Dose: 30 mg Pantoprazole Sodium (Protonix Ec Tab) 40 mg PO DAILY [facility] Last Admin: 08/21/17 10:36 Dose: 40 mg Vitamin B Complex/Vit C/Folic Acid (Nephro-Vamshi) 1 tab PO 0800 [facility] Last Admin: 08/21/17 08:29 Dose: 1 tab - Labs Labs: 08/22/17 04:00 08/22/17 04:00 PT 12.1 SECONDS (9.7-12.2) 08/20/17 19:48 INR 1.1 08/20/17 19:48 APTT 32 SECONDS (21-34) 08/20/17 19:48
[2017-08-22] MEDS: (Novolin R) Insulin Human Regular 100 units/ml vial SC SCH ×4 (08:36→21:48)
[2017-08-22] MEDS: Multivitamin Vitamin B Complex (Nephro-Vite) Tab PO SCH (08:36)
[2017-08-22] MEDS ORDERED: Bacitracin 50,000 UNIT in Sodium Chloride 0.9% Irrig 1,000 ML IR SCH (09:45)
[2017-08-22] MEDS ORDERED: Lactated Ringer's 1,000 ML IV ONE (09:45)
[2017-08-22] MEDS ORDERED: Bupivacaine HCl 0.5% PF (10 ml) Inj ONE (09:49)
[2017-08-22] MEDS ORDERED: Midazolam 2 MG/2 ML VIAL ONE (09:49)
[2017-08-22] MEDS ORDERED: ceFAZolin IV 1 gm in Dextrose 0 GM/0 ML BAG IVPB ONE (09:49)
[2017-08-22] MEDS ORDERED: Lidocaine 1% Inj (20ml) ONE (09:49)
[2017-08-22] MEDS ORDERED: Labetalol 25mg/5ml Syringe ONE (10:19)
[2017-08-22] MEDS ORDERED: Sodium Chloride 0.9% 250 ML IV ONE (10:35)
--- NOTE | 2017-08-22 10:36 | PCM.SURG1 ---
Surgeon's Initial Post Op Note - Surgeon's Notes Surgeon: Dr. Noble Sales [employer] Professional: Dr. Marcus PGY-2 Type of Anesthesia: IV Sedation, Local Anesthesia Administered By: Bebeto Dejesus Pre-Operative Diagnosis: left hallux painful ingrown toenail Operative Findings: see dictation. 10 CC 1:1 mixture 1% lidocaine plain, 0.5% marciane plain. 4-0 nylon Post-Operative Diagnosis: same Operation Performed: left hallux lateral border nail matrixectomy Specimen/Specimens Removed: nail matrix Estimated Blood Loss: EBL {In ML}: 3 Blood Products Given: N/A Drains Used: No Drains Post-Op Condition: Good Date of Surgery/Procedure: 08/22/17 Time of Surgery/Procedure: 10:36
[2017-08-22] MEDS: Insulin Detemir 100 units/ml Vial (Levemir) SC SCH ×2 (11:59→21:47)
[2017-08-22] MEDS: Clotrimazole/Betamethasone Cream(15 gm) TOP SCH ×2 (12:09→18:42)
[2017-08-22] MEDS: NIFEdipine 30 mg ER Tab PO SCH (12:14)
[2017-08-22] MEDS: Pantoprazole 40 mg EC Tab PO SCH (12:15)
--- NOTE | 2017-08-22 16:35 | CP.PCM.PN ---
Subjective - Date & Time of Evaluation Date of Evaluation: 08/22/17 Time of Evaluation: 08:00 - Subjective Subjective: wound + MRSA IV rx reordered Objective - Vital Signs/Intake and Output Vital Signs (last 24 hours): Temp Pulse Resp BP Pulse Ox 98.6 F 80 18 161/84 H 100 08/22/17 14:45 08/22/17 14:45 08/22/17 14:45 08/22/17 15:45 08/22/17 14:45 Intake and Output: 08/22/17 08/22/17 06:59 18:59 Intake Total 50 Balance 50 - Medications Medications: Current Medications Betamethasone/Clotrimazole (Lotrisone) 0 gm TOP BID [facility] Stop: 08/25/17 10:01 Last Admin: 08/22/17 12:09 Dose: Not Given Calcium Acetate (Phoslo) 667 mg PO TIDCC [facility] Last Admin: 08/22/17 12:03 Dose: 667 mg Clonidine HCl (Catapres) 0.3 mg PO BID [facility] Last Admin: 08/22/17 11:58 Dose: 0.3 mg Dextrose (Dextrose 50% Inj) 0 ml IV STAT PRN; Protocol PRN Reason: Hypoglycemia Protocol Dextrose (Glutose 15) 15 gm PO ONCE PRN; Protocol PRN Reason: Hypoglycemia Protocol Last Admin: 08/19/17 08:20 Dose: 15 gm Diphenhydramine HCl (Benadryl) 25 mg IVP Q3 PRN PRN Reason: for itching Last Admin: 08/22/17 15:05 Dose: 25 mg Diphenhydramine HCl (Benadryl) 25 mg IM Q3H PRN PRN Reason: Itching / Pruritus Last Admin: 08/19/17 21:50 Dose: 25 mg Ergocalciferol (Drisdol 50,000 Intl Units Cap) 1 cap PO Q7D [facility] Last Admin: 08/17/17 12:15 Dose: Not Given Gabapentin (Neurontin) 300 mg PO BID [facility] Last Admin: 08/22/17 11:58 Dose: 300 mg Glucagon (Glucagen Diagnostic Kit) 1 mg IM STAT PRN; Protocol PRN Reason: Hypoglycemia Protocol Hydromorphone HCl (Dilaudid) 2 mg IM Q3H PRN PRN Reason: Pain, severe (8-10) Last Admin: 08/22/17 11:57 Dose: 2 mg Hydromorphone HCl (Dilaudid) 2 mg IVP Q4 PRN PRN Reason: Pain, severe (8-10) Last Admin: 08/22/17 15:07 Dose: 2 mg Vancomycin HCl 500 mg/ Sodium (Chloride) 100 mls @ 100 mls/hr IVPB MWF [facility] PRN Reason: Protocol Last Admin: 08/22/17 12:15 Dose: 100 mls/hr Insulin Detemir (Levemir) 12 unit SC Q12 [facility] Last Admin: 08/22/17 11:59 Dose: 12 unit Insulin Human Regular (Novolin R) 0 unit SC ACHS [facility] PRN Reason: Protocol Last Admin: 08/22/17 12:05 Dose: Not Given Metoclopramide HCl (Reglan) 10 mg IVP DAILY PRN PRN Reason: Nausea/Vomiting Metronidazole (Flagyl) 250 mg PO Q8H [facility] Stop: 08/24/17 17:46 Last Admin: 08/22/17 12:08 Dose: 250 mg Nifedipine (Procardia Xl) 30 mg PO DAILY [facility] Last Admin: 08/22/17 12:14 Dose: 30 mg Pantoprazole Sodium (Protonix Ec Tab) 40 mg PO DAILY [facility] Last Admin: 08/22/17 12:15 Dose: 40 mg Vitamin B Complex/Vit C/Folic Acid (Nephro-Vamshi) 1 tab PO 0800 [facility] Last Admin: 08/22/17 08:36 Dose: Not Given - Labs Labs: 08/22/17 04:00 08/22/17 04:00 PT 12.1 SECONDS (9.7-12.2) 08/20/17 19:48 INR 1.1 08/20/17 19:48 APTT 32 SECONDS (21-34) 08/20/17 19:48 - Constitutional Appears: Non-toxic, Chronically Ill - Head Exam Head Exam: NORMOCEPHALIC - Eye Exam Eye Exam: PERRL - ENT Exam ENT Exam: Mucous Membranes Dry - Neck Exam Neck Exam: absent: Lymphadenopathy - Respiratory Exam Respiratory Exam: Decreased Breath Sounds - Cardiovascular Exam Cardiovascular Exam: REGULAR RHYTHM - GI/Abdominal Exam GI & Abdominal Exam: Distended - Rectal Exam Rectal Exam: Deferred - Exam Exam: NORMAL INSPECTION Assessment and Plan - Assessment and Plan (Free Text) Plan: cont iv vanco dr pierson to re-eval
--- NOTE | 2017-08-22 16:54 | RAD ---
PROCEDURE: Fluoroscopy up to 1 hr. HISTORY: RENAL FAILURE COMPARISON: None TECHNIQUE: Standard protocol for this study/examination. FINDINGS: Total fluoroscopic time (continuous mode) utilized during the procedure: 497.9 seconds. Total exam DLP: (mGy): 132.5 cm. IMPRESSION: Less than 1 hr fluoroscopic time utilized during performance of the procedure.
--- NOTE | 2017-08-22 22:39 | CP.PCM.PN ---
Subjective - Date & Time of Evaluation Date of Evaluation: 08/22/17 Time of Evaluation: 15:00 - Subjective Subjective: SEEN ON RENAL F/U SEEN ON HD ALL PREVIOUS EMR REVIEWED S/P PODIATRY SURGERY Objective - Vital Signs/Intake and Output Vital Signs (last 24 hours): Temp Pulse Resp BP Pulse Ox 97.5 F L 91 H 18 119/67 100 08/22/17 17:45 08/22/17 17:45 08/22/17 17:45 08/22/17 17:45 08/22/17 17:45 Intake and Output: 08/22/17 08/23/17 18:59 06:59 Intake Total 50 Balance 50 - Medications Medications: Current Medications Betamethasone/Clotrimazole (Lotrisone) 0 gm TOP BID [facility] Stop: 08/25/17 10:01 Last Admin: 08/22/17 18:42 Dose: 1 applic Calcium Acetate (Phoslo) 667 mg PO TIDCC [facility] Last Admin: 08/22/17 17:00 Dose: Not Given Clonidine HCl (Catapres) 0.3 mg PO BID [facility] Last Admin: 08/22/17 18:41 Dose: 0.3 mg Dextrose (Dextrose 50% Inj) 0 ml IV STAT PRN; Protocol PRN Reason: Hypoglycemia Protocol Dextrose (Glutose 15) 15 gm PO ONCE PRN; Protocol PRN Reason: Hypoglycemia Protocol Last Admin: 08/19/17 08:20 Dose: 15 gm Diphenhydramine HCl (Benadryl) 25 mg IVP Q3 PRN PRN Reason: for itching Last Admin: 08/22/17 21:46 Dose: 25 mg Diphenhydramine HCl (Benadryl) 25 mg IM Q3H PRN PRN Reason: Itching / Pruritus Last Admin: 08/19/17 21:50 Dose: 25 mg Ergocalciferol (Drisdol 50,000 Intl Units Cap) 1 cap PO Q7D [facility] Last Admin: 08/17/17 12:15 Dose: Not Given Gabapentin (Neurontin) 300 mg PO BID [facility] Last Admin: 08/22/17 18:42 Dose: 300 mg Glucagon (Glucagen Diagnostic Kit) 1 mg IM STAT PRN; Protocol PRN Reason: Hypoglycemia Protocol Hydromorphone HCl (Dilaudid) 2 mg IM Q3H PRN PRN Reason: Pain, severe (8-10) Last Admin: 08/22/17 21:46 Dose: 2 mg Hydromorphone HCl (Dilaudid) 2 mg IVP Q4 PRN PRN Reason: Pain, severe (8-10) Last Admin: 08/22/17 15:07 Dose: 2 mg Vancomycin HCl 500 mg/ Sodium (Chloride) 100 mls @ 100 mls/hr IVPB MWF [facility] PRN Reason: Protocol Last Admin: 08/22/17 12:15 Dose: 100 mls/hr Insulin Detemir (Levemir) 12 unit SC Q12 [facility] Last Admin: 08/22/17 21:47 Dose: 12 unit Insulin Human Regular (Novolin R) 0 unit SC ACHS [facility] PRN Reason: Protocol Last Admin: 08/22/17 21:48 Dose: 3 unit Metoclopramide HCl (Reglan) 10 mg IVP DAILY PRN PRN Reason: Nausea/Vomiting Metronidazole (Flagyl) 250 mg PO Q8H [facility] Stop: 08/24/17 17:46 Last Admin: 08/22/17 18:42 Dose: 250 mg Nifedipine (Procardia Xl) 30 mg PO DAILY [facility] Last Admin: 08/22/17 12:14 Dose: 30 mg Pantoprazole Sodium (Protonix Ec Tab) 40 mg PO DAILY [facility] Last Admin: 08/22/17 12:15 Dose: 40 mg Vitamin B Complex/Vit C/Folic Acid (Nephro-Vamshi) 1 tab PO 0800 [facility] Last Admin: 08/22/17 08:36 Dose: Not Given - Labs Labs: 08/22/17 04:00 08/22/17 04:00 PT 12.1 SECONDS (9.7-12.2) 08/20/17 19:48 INR 1.1 08/20/17 19:48 APTT 32 SECONDS (21-34) 08/20/17 19:48 Assessment and Plan - Assessment and Plan (Free Text) Assessment: ESRD ON HD M W F AND SAT .. TO BE C/O ANEMIA OF CKD .. H/H STABLE MMP P : C/O CURRENT MEDS C/O PRESENT MENAGEMENT
[2017-08-23] MEDS: DiphenhydrAMINE 50 mg/ml Inj IVP PRN ×7 (00:50→21:13)
--- NOTE | 2017-08-23 01:10 | CP.PCM.PN ---
Subjective - Date & Time of Evaluation Date of Evaluation: 08/22/17 Time of Evaluation: 14:05 Objective - Vital Signs/Intake and Output Vital Signs (last 24 hours): Temp Pulse Resp BP Pulse Ox 97.3 F L 76 20 188/99 H 99 08/22/17 23:40 08/22/17 23:40 08/22/17 23:40 08/22/17 23:40 08/22/17 23:40 Intake and Output: 08/22/17 08/23/17 18:59 06:59 Intake Total 50 300 Balance 50 300 - Medications Medications: Current Medications Betamethasone/Clotrimazole (Lotrisone) 0 gm TOP BID [facility] Stop: 08/25/17 10:01 Last Admin: 08/22/17 18:42 Dose: 1 applic Calcium Acetate (Phoslo) 667 mg PO TIDCC [facility] Last Admin: 08/22/17 17:00 Dose: Not Given Clonidine HCl (Catapres) 0.3 mg PO BID [facility] Last Admin: 08/22/17 18:41 Dose: 0.3 mg Dextrose (Dextrose 50% Inj) 0 ml IV STAT PRN; Protocol PRN Reason: Hypoglycemia Protocol Dextrose (Glutose 15) 15 gm PO ONCE PRN; Protocol PRN Reason: Hypoglycemia Protocol Last Admin: 08/19/17 08:20 Dose: 15 gm Diphenhydramine HCl (Benadryl) 25 mg IVP Q3 PRN PRN Reason: for itching Last Admin: 08/23/17 00:50 Dose: 25 mg Diphenhydramine HCl (Benadryl) 25 mg IM Q3H PRN PRN Reason: Itching / Pruritus Last Admin: 08/19/17 21:50 Dose: 25 mg Ergocalciferol (Drisdol 50,000 Intl Units Cap) 1 cap PO Q7D [facility] Last Admin: 08/17/17 12:15 Dose: Not Given Gabapentin (Neurontin) 300 mg PO BID [facility] Last Admin: 08/22/17 18:42 Dose: 300 mg Glucagon (Glucagen Diagnostic Kit) 1 mg IM STAT PRN; Protocol PRN Reason: Hypoglycemia Protocol Hydromorphone HCl (Dilaudid) 2 mg IM Q3H PRN PRN Reason: Pain, severe (8-10) Last Admin: 08/23/17 00:50 Dose: 2 mg Hydromorphone HCl (Dilaudid) 2 mg IVP Q4 PRN PRN Reason: Pain, severe (8-10) Last Admin: 08/22/17 15:07 Dose: 2 mg Vancomycin HCl 500 mg/ Sodium (Chloride) 100 mls @ 100 mls/hr IVPB MWF [facility] PRN Reason: Protocol Last Admin: 08/22/17 12:15 Dose: 100 mls/hr Insulin Detemir (Levemir) 12 unit SC Q12 [facility] Last Admin: 08/22/17 21:47 Dose: 12 unit Insulin Human Regular (Novolin R) 0 unit SC ACHS [facility] PRN Reason: Protocol Last Admin: 08/22/17 21:48 Dose: 3 unit Metoclopramide HCl (Reglan) 10 mg IVP DAILY PRN PRN Reason: Nausea/Vomiting Metronidazole (Flagyl) 250 mg PO Q8H [facility] Stop: 08/24/17 17:46 Last Admin: 08/22/17 18:42 Dose: 250 mg Nifedipine (Procardia Xl) 30 mg PO DAILY [facility] Last Admin: 08/22/17 12:14 Dose: 30 mg Pantoprazole Sodium (Protonix Ec Tab) 40 mg PO DAILY [facility] Last Admin: 08/22/17 12:15 Dose: 40 mg Vitamin B Complex/Vit C/Folic Acid (Nephro-Vamshi) 1 tab PO 0800 [facility] Last Admin: 08/22/17 08:36 Dose: Not Given - Labs Labs: 08/22/17 04:00 08/22/17 04:00 PT 12.1 SECONDS (9.7-12.2) 08/20/17 19:48 INR 1.1 08/20/17 19:48 APTT 32 SECONDS (21-34) 08/20/17 19:48
--- NOTE | 2017-08-23 03:42 | OP ---
PROCEDURE DATE: 08/22/2017 SURGEON: Alexei Cardenas DPM STRUCTURAL DRAFTER: Sylvie Marcus DPM, PGY2 ANESTHESIOLOGIST: Chris Dejesus. PREOPERATIVE DIAGNOSIS: Left foot hallux ingrowing toe nail, lateral border. POSTOPERATIVE DIAGNOSIS: Left foot hallux ingrowing toe nail, lateral border. NAME OF PROCEDURE: Left foot hallux matrixectomy. INDICATIONS: The patient is a 31-year-old female with the above-mentioned diagnosis. The patient has exhausted multiple forms of conservative treatment at this time and now requests surgical intervention. The patient signed the consent after careful explanation of risk, benefits, complications, and alternatives for surgical procedure. No guarantees were given nor implied. PREPARATION: The patient was brought into the operating room and placed on the operating room table in a supine position. Once IV sedation was achieved, a local injection of 10 mL of a 1:1 mixture of 1% lidocaine plain and 0.5% Marcaine plain was given in a local block-type fashion to the left forefoot. Once local anesthesia was achieved, the foot was then prepped and draped in a normal sterile manner. No tourniquet was used during the procedure and the procedure began. DESCRIPTION OF THE PROCEDURE: Attention was directed to the left hallux lateral border. With the use of a hemostat, the borders were undermined and the nail was freed from the nail bed and passed off of the operative field. With the use of a #15 blade, an elliptical incision was made to the skin at the lateral aspect of the nail down to bone, and the skin was passed off of the operative field and sent to Pathology. The matrix and bone were then divided with a curette and all rough edges were then smoothened down as necessary. The site was then irrigated with copious amounts of sterile normal saline. The skin was then re-approximated with 4-0 nylon. Postoperative bandage included Xeroform, 4 x 4 gauze, Jarvis. POSTOPERATIVE CONDITION: The patient tolerated the anesthesia and the procedure well and was escorted to the recovery room with vital signs stable and neurovascular status intact to the left foot. The patient will follow up With Dr. Cardenas on an outpatient basis. Sylvie Marcus DPM Alexei Cardenas DPM [facility] # [id number]
[2017-08-23 06:15] LABS: BASO % 0.2 % (0.0-2.0); EOS # 0.7 K/uL (0.0-0.7); EOS % 13.3 % (0.0-4.0); LYMPH # 1.2 K/uL (1.0-4.3); LYMPH % 21.9 % (20.0-40.0); MEAN CELL VOLUME 98.7 fL (81.0-99.0); MEAN CORPUSCULAR HEMOGLOBIN 31.5 pg (27.0-31.0); MEAN CORPUSCULAR HGB CONC 31.9 g/dL (33.0-37.0); MEAN PLATELET VOLUME 7.9 fL (7.2-11.7); MONO # 0.5 K/uL (0.0-0.8); NEUT # 2.9 K/uL (1.8-7.0); NEUT % 54.6 % (50.0-75.0); RBC 1.65 Mil/uL (3.80-5.20); RED CELL DISTRIBUTION WIDTH 17.2 % (11.5-14.5); WHITE BLOOD COUNT 5.3 K/uL (4.8-10.8)
[2017-08-23 06:23] LABS: HEMOGLOBIN 5.2 g/dL (11.0-16.0)
[2017-08-23 07:10] LABS: BASO # 0.1 K/uL (0.0-0.2); BASO % 1.9 % (0.0-2.0); EOS # 0.9 K/uL (0.0-0.7); EOS % 13.9 % (0.0-4.0); HEMOGLOBIN 8.3 g/dL (11.0-16.0); LYMPH # 1.3 K/uL (1.0-4.3); LYMPH % 19.9 % (20.0-40.0); MEAN CELL VOLUME 97.2 fL (81.0-99.0); MEAN CORPUSCULAR HEMOGLOBIN 31.8 pg (27.0-31.0); MEAN CORPUSCULAR HGB CONC 32.7 g/dL (33.0-37.0); MEAN PLATELET VOLUME 7.9 fL (7.2-11.7); MONO # 0.6 K/uL (0.0-0.8); MONO % 9.8 % (0.0-10.0); NEUT # 3.5 K/uL (1.8-7.0); NEUT % 54.5 % (50.0-75.0); RBC 2.62 Mil/uL (3.80-5.20); RED CELL DISTRIBUTION WIDTH 16.8 % (11.5-14.5); WHITE BLOOD COUNT 6.4 K/uL (4.8-10.8)
[2017-08-23 07:15] LABS: INR 1.1; PROTHROMBIN TIME 12.2 SECONDS (9.7-12.2)
[2017-08-23 08:20] LABS: ALB/GLOB RATIO 1.1 (1.0-2.1); ALBUMIN 3.1 g/dL (3.5-5.0)
[2017-08-23 09:06] LABS: CALCIUM 5.5 mg/dl (8.6-10.4)
[2017-08-23] MEDS: Clotrimazole/Betamethasone Cream(15 gm) TOP SCH ×2 (09:51→20:34)
[2017-08-23] MEDS: Insulin Detemir 100 units/ml Vial (Levemir) SC SCH ×2 (09:51→21:13)
[2017-08-23] MEDS: Multivitamin Vitamin B Complex (Nephro-Vite) Tab PO SCH (09:51)
[2017-08-23] MEDS: (Novolin R) Insulin Human Regular 100 units/ml vial SC SCH ×4 (09:52→22:50)
[2017-08-23] MEDS: NIFEdipine 30 mg ER Tab PO SCH (09:54)
[2017-08-23] MEDS: Pantoprazole 40 mg EC Tab PO SCH (09:54)
--- NOTE | 2017-08-23 11:08 | CP.PCM.PN ---
Subjective - Date & Time of Evaluation Date of Evaluation: 08/23/17 Time of Evaluation: 11:05 - Subjective Subjective: 31 y/o female pt seen at bedside this morning with attending Dr. Noble 1 day s/p left hallux nail matrixectomy and painful 3rd digits, 1 month s/p 3rd digit total nail avulsion. Patient says her pain is well managed with meds at this time. Denies noticing any drainage from the toes or any redness or swelling. Patient denies having any other pedal complaints. THe dressings remain c/d/i. She denies F/C/N/V/CP/SOB. Objective - Vital Signs/Intake and Output Vital Signs (last 24 hours): Temp Pulse Resp BP Pulse Ox 97.1 F L 92 H 18 170/101 H 100 08/23/17 07:40 08/23/17 07:40 08/23/17 07:40 08/23/17 07:40 08/23/17 07:40 Intake and Output: 08/23/17 08/23/17 06:59 18:59 Intake Total 300 Balance 300 - Medications Medications: Current Medications Betamethasone/Clotrimazole (Lotrisone) 0 gm TOP BID [facility] Stop: 08/25/17 10:01 Last Admin: 08/23/17 09:51 Dose: 1 applic Calcium Acetate (Phoslo) 667 mg PO TIDCC [facility] Last Admin: 08/23/17 09:51 Dose: 667 mg Clonidine HCl (Catapres) 0.3 mg PO BID [facility] Last Admin: 08/23/17 09:51 Dose: 0.3 mg Dextrose (Dextrose 50% Inj) 0 ml IV STAT PRN; Protocol PRN Reason: Hypoglycemia Protocol Dextrose (Glutose 15) 15 gm PO ONCE PRN; Protocol PRN Reason: Hypoglycemia Protocol Last Admin: 08/19/17 08:20 Dose: 15 gm Diphenhydramine HCl (Benadryl) 25 mg IVP Q3 PRN PRN Reason: for itching Last Admin: 08/23/17 10:44 Dose: 25 mg Diphenhydramine HCl (Benadryl) 25 mg IM Q3H PRN PRN Reason: Itching / Pruritus Last Admin: 08/19/17 21:50 Dose: 25 mg Ergocalciferol (Drisdol 50,000 Intl Units Cap) 1 cap PO Q7D [facility] Last Admin: 08/17/17 12:15 Dose: Not Given Gabapentin (Neurontin) 300 mg PO BID [facility] Last Admin: 08/23/17 09:51 Dose: 300 mg Glucagon (Glucagen Diagnostic Kit) 1 mg IM STAT PRN; Protocol PRN Reason: Hypoglycemia Protocol Hydromorphone HCl (Dilaudid) 2 mg IM Q3H PRN PRN Reason: Pain, severe (8-10) Last Admin: 08/23/17 10:43 Dose: 2 mg Hydromorphone HCl (Dilaudid) 2 mg IVP Q4 PRN PRN Reason: Pain, severe (8-10) Last Admin: 08/22/17 15:07 Dose: 2 mg Vancomycin HCl 500 mg/ Sodium (Chloride) 100 mls @ 100 mls/hr IVPB MWF [facility] PRN Reason: Protocol Last Admin: 08/22/17 12:15 Dose: 100 mls/hr Insulin Detemir (Levemir) 12 unit SC Q12 [facility] Last Admin: 08/23/17 09:51 Dose: 12 unit Insulin Human Regular (Novolin R) 0 unit SC ACHS [facility] PRN Reason: Protocol Last Admin: 08/23/17 09:52 Dose: Not Given Metoclopramide HCl (Reglan) 10 mg IVP DAILY PRN PRN Reason: Nausea/Vomiting Metronidazole (Flagyl) 250 mg PO Q8H [facility] Stop: 08/24/17 17:46 Last Admin: 08/23/17 09:51 Dose: 250 mg Nifedipine (Procardia Xl) 30 mg PO DAILY [facility] Last Admin: 08/23/17 09:54 Dose: 30 mg Pantoprazole Sodium (Protonix Ec Tab) 40 mg PO DAILY [facility] Last Admin: 08/23/17 09:54 Dose: 40 mg Vitamin B Complex/Vit C/Folic Acid (Nephro-Vamshi) 1 tab PO 0800 [facility] Last Admin: 08/23/17 09:51 Dose: 1 tab - Labs Labs: 08/23/17 06:59 08/23/17 06:10 PT 12.2 SECONDS (9.7-12.2) 08/23/17 06:59 INR 1.1 08/23/17 06:59 APTT 32 SECONDS (21-34) 08/23/17 06:59 - Constitutional Appears: Well, Non-toxic, No Acute Distress - Extremities Exam Additional comments: Bilateral lower extremity exam Vasc: DP and PT pulses palpable 2/4 bilaterally, [employer] less than 3 seconds to all digits bilaterally, mild localized non-pitting edema noted to the 3rd digits bilaterally DERM: Left: Small open wound noted to Left 3rd digit distal aspect at the site of nail avulsion measuring 0.3cm x 0.3cm x 0.2cm with mild erythema around the site of nail avulsion. No Probe to bone. No drainage is noted. No malodor is noted. No sign of acute infection is noted. Right:No open wound is noted to the right 3rd digit. No drainage is noted. Mild erythema is noted to the right 3rd digit. No sign of acute infection is noted. No malodor is noted. left hallux lateral nail border- sutures intact, surgical incision site intact iwth no dehiscence, no purulence, no active bleeding, no fluctuance, no malodor Ortho: tenderness noted to the 3rd digit nail beds B/L. Mild tenderness to left hallux at lateral nail border Neuro: gross sensation intact - Neurological Exam Neurological Exam: Alert, Awake, Oriented x3 - Psychiatric Exam Psychiatric exam: Normal Affect, Normal Mood Assessment and Plan - Assessment and Plan (Free Text) Assessment: 31 y/o female seen at bedside 1 day s/p left hallux nail matrixectomy, and 1 month s/p bilateral 3rd digit nail avulsions with delayed healing Plan: patient evaluated and chart reviewed seen at bedside with attending Dr. Noble labs and vitals reviewed; afebrile cont. IV abx applied DSD to bilateral foot patient stable from podiatry standpoint patient instructed to continue with IV vanco for outpatient therapy as per Dr. Noble with dialysis podiatry will continue to follow while in house
[2017-08-23] MEDS: Ergocalciferol 50,000 Intl Units Cap PO SCH (12:55)
[2017-08-23 16:29] LABS: VENOUS BLOOD GAS BASE EXCESS -8.2 mmol/L (0.0-2.0); VENOUS BLOOD GAS PCO2 38 mmHg (40-60); VENOUS BLOOD GAS PO2 52 mm/Hg (30-55); VENOUS BLOOD PH 7.28 (7.32-7.43)
--- NOTE | 2017-08-23 18:38 | CP.PCM.PN ---
Subjective - Date & Time of Evaluation Date of Evaluation: 08/23/17 Time of Evaluation: 09:00 - Subjective Subjective: c/o pain foot wound dry + MRSA cont iv vanco Objective - Vital Signs/Intake and Output Vital Signs (last 24 hours): Temp Pulse Resp BP Pulse Ox 97.2 F L 90 20 185/108 H 95 08/23/17 15:00 08/23/17 15:00 08/23/17 15:00 08/23/17 15:00 08/23/17 15:00 Intake and Output: 08/23/17 08/23/17 06:59 18:59 Intake Total 300 Balance 300 - Medications Medications: Current Medications Betamethasone/Clotrimazole (Lotrisone) 0 gm TOP BID [facility] Stop: 08/25/17 10:01 Last Admin: 08/23/17 09:51 Dose: 1 applic Calcium Acetate (Phoslo) 1,334 mg PO TIDCC [facility] Last Admin: 08/23/17 17:39 Dose: 1,334 mg Clonidine HCl (Catapres) 0.3 mg PO BID [facility] Last Admin: 08/23/17 17:38 Dose: 0.3 mg Dextrose (Dextrose 50% Inj) 0 ml IV STAT PRN; Protocol PRN Reason: Hypoglycemia Protocol Dextrose (Glutose 15) 15 gm PO ONCE PRN; Protocol PRN Reason: Hypoglycemia Protocol Last Admin: 08/19/17 08:20 Dose: 15 gm Diphenhydramine HCl (Benadryl) 25 mg IVP Q3 PRN PRN Reason: for itching Last Admin: 08/23/17 17:39 Dose: 25 mg Diphenhydramine HCl (Benadryl) 25 mg IM Q3H PRN PRN Reason: Itching / Pruritus Last Admin: 08/19/17 21:50 Dose: 25 mg Ergocalciferol (Drisdol 50,000 Intl Units Cap) 1 cap PO Q7D [facility] Last Admin: 08/17/17 12:15 Dose: Not Given Ergocalciferol (Drisdol 50,000 Intl Units Cap) 1 cap PO Q7D [facility] Last Admin: 08/23/17 12:55 Dose: 1 cap Gabapentin (Neurontin) 300 mg PO DAILY [facility] Glucagon (Glucagen Diagnostic Kit) 1 mg IM STAT PRN; Protocol PRN Reason: Hypoglycemia Protocol Hydromorphone HCl (Dilaudid) 2 mg IM Q3H PRN PRN Reason: Pain, severe (8-10) Last Admin: 08/23/17 13:59 Dose: 2 mg Hydromorphone HCl (Dilaudid) 2 mg IVP Q4 PRN PRN Reason: Pain, severe (8-10) Last Admin: 08/23/17 17:40 Dose: 2 mg Vancomycin HCl 500 mg/ Sodium (Chloride) 100 mls @ 100 mls/hr IVPB MWF [facility] PRN Reason: Protocol Last Admin: 08/22/17 12:15 Dose: 100 mls/hr Insulin Detemir (Levemir) 12 unit SC Q12 [facility] Last Admin: 08/23/17 09:51 Dose: 12 unit Insulin Human Regular (Novolin R) 0 unit SC ACHS [facility] PRN Reason: Protocol Last Admin: 08/23/17 17:39 Dose: 4 unit Metoclopramide HCl (Reglan) 10 mg IVP DAILY PRN PRN Reason: Nausea/Vomiting Nifedipine (Procardia Xl) 30 mg PO DAILY [facility] Last Admin: 08/23/17 09:54 Dose: 30 mg Pantoprazole Sodium (Protonix Ec Tab) 40 mg PO DAILY [facility] Last Admin: 08/23/17 09:54 Dose: 40 mg Vitamin B Complex/Vit C/Folic Acid (Nephro-Vamshi) 1 tab PO 0800 [facility] Last Admin: 08/23/17 09:51 Dose: 1 tab - Labs Labs: 08/23/17 06:59 08/23/17 06:10 PT 12.2 SECONDS (9.7-12.2) 08/23/17 06:59 INR 1.1 08/23/17 06:59 APTT 32 SECONDS (21-34) 08/23/17 06:59 - Constitutional Appears: Non-toxic, Chronically Ill - Head Exam Head Exam: NORMOCEPHALIC - Eye Exam Eye Exam: PERRL - ENT Exam ENT Exam: Mucous Membranes Dry - Neck Exam Neck Exam: absent: Lymphadenopathy - Respiratory Exam Respiratory Exam: Decreased Breath Sounds, Clear to Ausculation Bilateral - Cardiovascular Exam Cardiovascular Exam: REGULAR RHYTHM - GI/Abdominal Exam GI & Abdominal Exam: Distended, Soft Assessment and Plan - Assessment and Plan (Free Text) Plan: cont iv vanco consider imaging left foot podiatry following
--- NOTE | 2017-08-23 20:37 | CP.PCM.PN ---
Subjective - Date & Time of Evaluation Date of Evaluation: 08/23/17 Time of Evaluation: 20:37 Objective - Vital Signs/Intake and Output Vital Signs (last 24 hours): Temp Pulse Resp BP Pulse Ox 97.2 F L 90 20 185/108 H 95 08/23/17 15:00 08/23/17 15:00 08/23/17 15:00 08/23/17 15:00 08/23/17 15:00 - Medications Medications: Current Medications Betamethasone/Clotrimazole (Lotrisone) 0 gm TOP BID [facility] Stop: 08/25/17 10:01 Last Admin: 08/23/17 20:34 Dose: 1 applic Calcium Acetate (Phoslo) 1,334 mg PO TIDCC [facility] Last Admin: 08/23/17 17:39 Dose: 1,334 mg Clonidine HCl (Catapres) 0.3 mg PO BID [facility] Last Admin: 08/23/17 17:38 Dose: 0.3 mg Dextrose (Dextrose 50% Inj) 0 ml IV STAT PRN; Protocol PRN Reason: Hypoglycemia Protocol Dextrose (Glutose 15) 15 gm PO ONCE PRN; Protocol PRN Reason: Hypoglycemia Protocol Last Admin: 08/19/17 08:20 Dose: 15 gm Diphenhydramine HCl (Benadryl) 25 mg IVP Q3 PRN PRN Reason: for itching Last Admin: 08/23/17 17:39 Dose: 25 mg Diphenhydramine HCl (Benadryl) 25 mg IM Q3H PRN PRN Reason: Itching / Pruritus Last Admin: 08/19/17 21:50 Dose: 25 mg Ergocalciferol (Drisdol 50,000 Intl Units Cap) 1 cap PO Q7D [facility] Last Admin: 08/17/17 12:15 Dose: Not Given Ergocalciferol (Drisdol 50,000 Intl Units Cap) 1 cap PO Q7D [facility] Last Admin: 08/23/17 12:55 Dose: 1 cap Gabapentin (Neurontin) 300 mg PO DAILY [facility] Glucagon (Glucagen Diagnostic Kit) 1 mg IM STAT PRN; Protocol PRN Reason: Hypoglycemia Protocol Hydromorphone HCl (Dilaudid) 2 mg IVP Q4 PRN PRN Reason: Pain, severe (8-10) Last Admin: 08/23/17 17:40 Dose: 2 mg Vancomycin HCl 500 mg/ Sodium (Chloride) 100 mls @ 100 mls/hr IVPB MWF [facility] PRN Reason: Protocol Last Admin: 08/22/17 12:15 Dose: 100 mls/hr Insulin Detemir (Levemir) 12 unit SC Q12 [facility] Last Admin: 08/23/17 09:51 Dose: 12 unit Insulin Human Regular (Novolin R) 0 unit SC ACHS [facility] PRN Reason: Protocol Last Admin: 08/23/17 17:39 Dose: 4 unit Metoclopramide HCl (Reglan) 10 mg IVP DAILY PRN PRN Reason: Nausea/Vomiting Nifedipine (Procardia Xl) 30 mg PO DAILY [facility] Last Admin: 08/23/17 09:54 Dose: 30 mg Pantoprazole Sodium (Protonix Ec Tab) 40 mg PO DAILY [facility] Last Admin: 08/23/17 09:54 Dose: 40 mg Vitamin B Complex/Vit C/Folic Acid (Nephro-Vamshi) 1 tab PO 0800 [facility] Last Admin: 08/23/17 09:51 Dose: 1 tab - Labs Labs: 08/23/17 06:59 08/23/17 06:10 PT 12.2 SECONDS (9.7-12.2) 08/23/17 06:59 INR 1.1 08/23/17 06:59 APTT 32 SECONDS (21-34) 08/23/17 06:59
--- NOTE | 2017-08-23 21:55 | CP.PCM.PN ---
Subjective - Date & Time of Evaluation Date of Evaluation: 08/23/17 Time of Evaluation: 16:00 - Subjective Subjective: SEEN ON RENAL F/U FEELS THE SAME HYPOCALCEMIA NOTED .. CASE D/W RESIDENT .. TO INCREASE PHOS LO TO 2 CAP PO TID AFTER MEALS AND TO START VIT D 2000 IU POQD ON HD M W F AND SAT Objective - Vital Signs/Intake and Output Vital Signs (last 24 hours): Temp Pulse Resp BP Pulse Ox 97.2 F L 90 20 185/108 H 95 08/23/17 15:00 08/23/17 15:00 08/23/17 15:00 08/23/17 15:00 08/23/17 15:00 - Medications Medications: Current Medications Betamethasone/Clotrimazole (Lotrisone) 0 gm TOP BID [facility] Stop: 08/25/17 10:01 Last Admin: 08/23/17 20:34 Dose: 1 applic Calcium Acetate (Phoslo) 1,334 mg PO TIDCC [facility] Last Admin: 08/23/17 17:39 Dose: 1,334 mg Clonidine HCl (Catapres) 0.3 mg PO BID [facility] Last Admin: 08/23/17 17:38 Dose: 0.3 mg Dextrose (Dextrose 50% Inj) 0 ml IV STAT PRN; Protocol PRN Reason: Hypoglycemia Protocol Dextrose (Glutose 15) 15 gm PO ONCE PRN; Protocol PRN Reason: Hypoglycemia Protocol Last Admin: 08/19/17 08:20 Dose: 15 gm Diphenhydramine HCl (Benadryl) 25 mg IVP Q3 PRN PRN Reason: for itching Last Admin: 08/23/17 21:13 Dose: 25 mg Diphenhydramine HCl (Benadryl) 25 mg IM Q3H PRN PRN Reason: Itching / Pruritus Last Admin: 08/19/17 21:50 Dose: 25 mg Ergocalciferol (Drisdol 50,000 Intl Units Cap) 1 cap PO Q7D [facility] Last Admin: 08/17/17 12:15 Dose: Not Given Ergocalciferol (Drisdol 50,000 Intl Units Cap) 1 cap PO Q7D [facility] Last Admin: 08/23/17 12:55 Dose: 1 cap Gabapentin (Neurontin) 300 mg PO DAILY [facility] Glucagon (Glucagen Diagnostic Kit) 1 mg IM STAT PRN; Protocol PRN Reason: Hypoglycemia Protocol Hydralazine HCl (Apresoline) 25 mg PO QID [facility] Hydromorphone HCl (Dilaudid) 2 mg IVP Q4 PRN PRN Reason: Pain, severe (8-10) Last Admin: 08/23/17 21:13 Dose: 2 mg Vancomycin HCl 500 mg/ Sodium (Chloride) 100 mls @ 100 mls/hr IVPB MWF [facility] PRN Reason: Protocol Last Admin: 08/22/17 12:15 Dose: 100 mls/hr Insulin Detemir (Levemir) 12 unit SC Q12 [facility] Last Admin: 08/23/17 21:13 Dose: 12 unit Insulin Human Regular (Novolin R) 0 unit SC ACHS [facility] PRN Reason: Protocol Last Admin: 08/23/17 17:39 Dose: 4 unit Metoclopramide HCl (Reglan) 10 mg IVP DAILY PRN PRN Reason: Nausea/Vomiting Nifedipine (Procardia Xl) 30 mg PO DAILY [facility] Last Admin: 08/23/17 09:54 Dose: 30 mg Pantoprazole Sodium (Protonix Ec Tab) 40 mg PO DAILY [facility] Last Admin: 08/23/17 09:54 Dose: 40 mg Vitamin B Complex/Vit C/Folic Acid (Nephro-Vamshi) 1 tab PO 0800 [facility] Last Admin: 08/23/17 09:51 Dose: 1 tab - Labs Labs: 08/23/17 06:59 08/23/17 06:10 PT 12.2 SECONDS (9.7-12.2) 08/23/17 06:59 INR 1.1 08/23/17 06:59 APTT 32 SECONDS (21-34) 08/23/17 06:59
[2017-08-24] MEDS: DiphenhydrAMINE 50 mg/ml Inj IVP PRN ×6 (00:08→22:21)
[2017-08-24 07:39] LABS: BASO # 0.1 K/uL (0.0-0.2); BASO % 1.3 % (0.0-2.0); EOS # 1.2 K/uL (0.0-0.7); EOS % 19.2 % (0.0-4.0); HEMOGLOBIN 8.8 g/dL (11.0-16.0); LYMPH # 1.4 K/uL (1.0-4.3); MEAN CELL VOLUME 97.3 fL (81.0-99.0); MEAN CORPUSCULAR HEMOGLOBIN 31.8 pg (27.0-31.0); MEAN CORPUSCULAR HGB CONC 32.7 g/dL (33.0-37.0); MEAN PLATELET VOLUME 8.1 fL (7.2-11.7); MONO # 0.5 K/uL (0.0-0.8); MONO % 7.6 % (0.0-10.0); NEUT # 3.2 K/uL (1.8-7.0); NEUT % 49.9 % (50.0-75.0); RBC 2.77 Mil/uL (3.80-5.20); RED CELL DISTRIBUTION WIDTH 16.8 % (11.5-14.5); WHITE BLOOD COUNT 6.4 K/uL (4.8-10.8)
[2017-08-24 08:16] LABS: ALB/GLOB RATIO 1.2 (1.0-2.1); ALBUMIN 3.8 g/dL (3.5-5.0)
[2017-08-24] MEDS: (Novolin R) Insulin Human Regular 100 units/ml vial SC SCH ×5 (08:23→22:14)
[2017-08-24] MEDS: Insulin Detemir 100 units/ml Vial (Levemir) SC SCH ×2 (09:22→22:20)
[2017-08-24] MEDS: NIFEdipine 30 mg ER Tab PO SCH (09:22)
[2017-08-24] MEDS: Pantoprazole 40 mg EC Tab PO SCH (09:22)
[2017-08-24] MEDS: Multivitamin Vitamin B Complex (Nephro-Vite) Tab PO SCH (09:23)
[2017-08-24] MEDS: Clotrimazole/Betamethasone Cream(15 gm) TOP SCH ×2 (09:24→19:14)
[2017-08-24] MEDS: Ergocalciferol 50,000 Intl Units Cap PO SCH (12:19)
--- NOTE | 2017-08-24 12:21 | CP.PCM.PN ---
Subjective - Date & Time of Evaluation Date of Evaluation: 08/24/17 Time of Evaluation: 12:19 - Subjective Subjective: 31 y/o female pt seen at bedside 2 days s/p left hallux nail matrixectomy and painful 3rd digits, 1 month s/p 3rd digit total nail avulsion. Patient says her pain is well managed with meds at this time. Denies noticing any drainage from the toes or any redness or swelling. Patient denies having any other pedal complaints. THe dressings remain c/d/i. She denies F/C/N/V/CP/SOB. Objective - Vital Signs/Intake and Output Vital Signs (last 24 hours): Temp Pulse Resp BP Pulse Ox 97.3 F L 95 H 18 196/130 H 94 L 08/24/17 07:30 08/24/17 07:30 08/24/17 07:30 08/24/17 07:30 08/24/17 07:30 - Medications Medications: Current Medications Betamethasone/Clotrimazole (Lotrisone) 0 gm TOP BID [facility] Stop: 08/25/17 10:01 Last Admin: 08/24/17 09:24 Dose: 1 applic Calcium Acetate (Phoslo) 1,334 mg PO TIDCC [facility] Last Admin: 08/24/17 12:12 Dose: 1,334 mg Clonidine HCl (Catapres) 0.3 mg PO BID [facility] Last Admin: 08/24/17 09:22 Dose: 0.3 mg Dextrose (Dextrose 50% Inj) 0 ml IV STAT PRN; Protocol PRN Reason: Hypoglycemia Protocol Dextrose (Glutose 15) 15 gm PO ONCE PRN; Protocol PRN Reason: Hypoglycemia Protocol Last Admin: 08/19/17 08:20 Dose: 15 gm Diphenhydramine HCl (Benadryl) 25 mg IVP Q3 PRN PRN Reason: for itching Last Admin: 08/24/17 12:12 Dose: 25 mg Diphenhydramine HCl (Benadryl) 25 mg IM Q3H PRN PRN Reason: Itching / Pruritus Last Admin: 08/19/17 21:50 Dose: 25 mg Docusate Sodium (Colace) 100 mg PO TID [facility] Ergocalciferol (Drisdol 50,000 Intl Units Cap) 1 cap PO Q7D [facility] Last Admin: 08/17/17 12:15 Dose: Not Given Ergocalciferol (Drisdol 50,000 Intl Units Cap) 1 cap PO Q7D [facility] Last Admin: 08/23/17 12:55 Dose: 1 cap Gabapentin (Neurontin) 300 mg PO DAILY [facility] Last Admin: 08/24/17 09:22 Dose: 300 mg Glucagon (Glucagen Diagnostic Kit) 1 mg IM STAT PRN; Protocol PRN Reason: Hypoglycemia Protocol Hydralazine HCl (Apresoline) 25 mg PO QID [facility] Last Admin: 08/24/17 09:22 Dose: 25 mg Hydromorphone HCl (Dilaudid) 2 mg IVP Q3 PRN PRN Reason: Pain, severe (8-10) Last Admin: 08/24/17 12:13 Dose: 2 mg Vancomycin HCl 500 mg/ Sodium (Chloride) 100 mls @ 100 mls/hr IVPB MWF [facility] PRN Reason: Protocol Last Admin: 08/24/17 09:21 Dose: 100 mls/hr Insulin Detemir (Levemir) 12 unit SC Q12 [facility] Last Admin: 08/24/17 09:22 Dose: 12 unit Insulin Human Regular (Novolin R) 0 unit SC ACHS [facility] PRN Reason: Protocol Last Admin: 08/24/17 08:23 Dose: Not Given Metoclopramide HCl (Reglan) 10 mg IVP DAILY PRN PRN Reason: Nausea/Vomiting Nifedipine (Procardia Xl) 30 mg PO DAILY [facility] Last Admin: 08/24/17 09:22 Dose: 30 mg Pantoprazole Sodium (Protonix Ec Tab) 40 mg PO DAILY [facility] Last Admin: 08/24/17 09:22 Dose: 40 mg Vitamin B Complex/Vit C/Folic Acid (Nephro-Vamshi) 1 tab PO 0800 [facility] Last Admin: 08/24/17 09:23 Dose: 1 tab - Labs Labs: 08/24/17 07:14 08/24/17 07:14 PT 12.2 SECONDS (9.7-12.2) 08/23/17 06:59 INR 1.1 08/23/17 06:59 APTT 32 SECONDS (21-34) 08/23/17 06:59 - Constitutional Appears: Well, Non-toxic, No Acute Distress - Extremities Exam Additional comments: Bilateral lower extremity exam Vasc: DP and PT pulses palpable 2/4 bilaterally, [employer] less than 3 seconds to all digits bilaterally, mild localized non-pitting edema noted to the 3rd digits bilaterally DERM: Left: Small open wound noted to Left 3rd digit distal aspect at the site of nail avulsion measuring 0.3cm x 0.3cm x 0.2cm with mild erythema around the site of nail avulsion. No Probe to bone. No drainage is noted. No malodor is noted. No sign of acute infection is noted. Right:No open wound is noted to the right 3rd digit. No drainage is noted. Mild erythema is noted to the right 3rd digit. No sign of acute infection is noted. No malodor is noted. left hallux lateral nail border- sutures intact, surgical incision site intact iwth no dehiscence, no purulence, no active bleeding, no fluctuance, no malodor Ortho: tenderness noted to the 3rd digit nail beds B/L. Mild tenderness to left hallux at lateral nail border Neuro: gross sensation intact - Neurological Exam Neurological Exam: Alert, Awake, Oriented x3 - Psychiatric Exam Psychiatric exam: Normal Affect, Normal Mood Assessment and Plan - Assessment and Plan (Free Text) Assessment: 31 y/o female seen at bedside 2 days s/p left hallux nail matrixectomy, and 1 month s/p bilateral 3rd digit nail avulsions with delayed healing Plan: patient evaluated and chart reviewed discussed in detail with attending Dr. Noble labs and vitals reviewed; afebrile cont. IV abx applied DSD to bilateral 3rd digit of foot patient stable from podiatry standpoint patient instructed to continue with IV vanco for outpatient therapy as per Dr. Noble with dialysis podiatry will continue to follow while in house
--- NOTE | 2017-08-24 16:01 | CP.PCM.PN ---
Subjective - Date & Time of Evaluation Date of Evaluation: 08/24/17 Time of Evaluation: 16:01 Objective - Vital Signs/Intake and Output Vital Signs (last 24 hours): Temp Pulse Resp BP Pulse Ox 97.3 F L 91 H 18 167/98 H 94 L 08/24/17 07:30 08/24/17 13:00 08/24/17 07:30 08/24/17 13:00 08/24/17 07:30 Intake and Output: 08/24/17 08/24/17 06:59 18:59 Intake Total 600 Balance 600 - Medications Medications: Current Medications Betamethasone/Clotrimazole (Lotrisone) 0 gm TOP BID [facility] Stop: 08/25/17 10:01 Last Admin: 08/24/17 09:24 Dose: 1 applic Calcium Acetate (Phoslo) 1,334 mg PO TIDCC [facility] Last Admin: 08/24/17 12:12 Dose: 1,334 mg Clonidine HCl (Catapres) 0.3 mg PO BID [facility] Last Admin: 08/24/17 09:22 Dose: 0.3 mg Dextrose (Dextrose 50% Inj) 0 ml IV STAT PRN; Protocol PRN Reason: Hypoglycemia Protocol Dextrose (Glutose 15) 15 gm PO ONCE PRN; Protocol PRN Reason: Hypoglycemia Protocol Last Admin: 08/19/17 08:20 Dose: 15 gm Diphenhydramine HCl (Benadryl) 25 mg IVP Q3 PRN PRN Reason: for itching Last Admin: 08/24/17 15:41 Dose: 25 mg Diphenhydramine HCl (Benadryl) 25 mg IM Q3H PRN PRN Reason: Itching / Pruritus Last Admin: 08/19/17 21:50 Dose: 25 mg Docusate Sodium (Colace) 100 mg PO TID [facility] Last Admin: 08/24/17 14:38 Dose: Not Given Ergocalciferol (Drisdol 50,000 Intl Units Cap) 1 cap PO Q7D [facility] Last Admin: 08/24/17 12:19 Dose: Not Given Ergocalciferol (Drisdol 50,000 Intl Units Cap) 1 cap PO Q7D [facility] Last Admin: 08/23/17 12:55 Dose: 1 cap Gabapentin (Neurontin) 300 mg PO DAILY [facility] Last Admin: 08/24/17 09:22 Dose: 300 mg Glucagon (Glucagen Diagnostic Kit) 1 mg IM STAT PRN; Protocol PRN Reason: Hypoglycemia Protocol Hydralazine HCl (Apresoline) 25 mg PO QID [facility] Last Admin: 08/24/17 14:38 Dose: Not Given Hydromorphone HCl (Dilaudid) 2 mg IVP Q3 PRN PRN Reason: Pain, severe (8-10) Last Admin: 08/24/17 15:43 Dose: 2 mg Vancomycin HCl 500 mg/ Sodium (Chloride) 100 mls @ 100 mls/hr IVPB MWF [facility] PRN Reason: Protocol Last Admin: 08/24/17 09:21 Dose: 100 mls/hr Insulin Detemir (Levemir) 12 unit SC Q12 [facility] Last Admin: 08/24/17 09:22 Dose: 12 unit Insulin Human Regular (Novolin R) 0 unit SC ACHS [facility] PRN Reason: Protocol Last Admin: 08/24/17 13:37 Dose: Not Given Metoclopramide HCl (Reglan) 10 mg IVP DAILY PRN PRN Reason: Nausea/Vomiting Nifedipine (Procardia Xl) 30 mg PO DAILY [facility] Last Admin: 08/24/17 09:22 Dose: 30 mg Pantoprazole Sodium (Protonix Ec Tab) 40 mg PO DAILY [facility] Last Admin: 08/24/17 09:22 Dose: 40 mg Vitamin B Complex/Vit C/Folic Acid (Nephro-Vamshi) 1 tab PO 0800 [facility] Last Admin: 08/24/17 09:23 Dose: 1 tab - Labs Labs: 08/24/17 07:14 08/24/17 07:14 PT 12.2 SECONDS (9.7-12.2) 08/23/17 06:59 INR 1.1 08/23/17 06:59 APTT 32 SECONDS (21-34) 08/23/17 06:59
[2017-08-24] MEDS ORDERED: DiphenhydrAMINE 50 mg/ml Inj IVP ONE (17:20)
--- NOTE | 2017-08-24 20:41 | CP.PCM.PN ---
Subjective - Date & Time of Evaluation Date of Evaluation: 08/24/17 Time of Evaluation: 16:00 - Subjective Subjective: seen on renal f/u feels improved c/o locl pain on l foot Objective - Vital Signs/Intake and Output Vital Signs (last 24 hours): Temp Pulse Resp BP Pulse Ox 97.8 F 108 H 18 156/94 H 93 L 08/24/17 19:00 08/24/17 19:00 08/24/17 19:00 08/24/17 19:00 08/24/17 19:00 Intake and Output: 08/24/17 08/25/17 18:59 06:59 Intake Total 600 Balance 600 - Medications Medications: Current Medications Betamethasone/Clotrimazole (Lotrisone) 0 gm TOP BID [facility] Stop: 08/25/17 10:01 Last Admin: 08/24/17 19:14 Dose: 1 applic Calcium Acetate (Phoslo) 1,334 mg PO TIDCC [facility] Last Admin: 08/24/17 19:14 Dose: 1,334 mg Clonidine HCl (Catapres) 0.3 mg PO BID [facility] Last Admin: 08/24/17 19:14 Dose: 0.3 mg Dextrose (Dextrose 50% Inj) 0 ml IV STAT PRN; Protocol PRN Reason: Hypoglycemia Protocol Dextrose (Glutose 15) 15 gm PO ONCE PRN; Protocol PRN Reason: Hypoglycemia Protocol Last Admin: 08/19/17 08:20 Dose: 15 gm Diphenhydramine HCl (Benadryl) 25 mg IVP Q3 PRN PRN Reason: for itching Last Admin: 08/24/17 15:41 Dose: 25 mg Diphenhydramine HCl (Benadryl) 25 mg IM Q3H PRN PRN Reason: Itching / Pruritus Last Admin: 08/19/17 21:50 Dose: 25 mg Docusate Sodium (Colace) 100 mg PO TID [facility] Last Admin: 08/24/17 19:14 Dose: 100 mg Ergocalciferol (Drisdol 50,000 Intl Units Cap) 1 cap PO Q7D [facility] Last Admin: 08/24/17 12:19 Dose: Not Given Ergocalciferol (Drisdol 50,000 Intl Units Cap) 1 cap PO Q7D [facility] Last Admin: 08/23/17 12:55 Dose: 1 cap Gabapentin (Neurontin) 300 mg PO DAILY [facility] Last Admin: 08/24/17 09:22 Dose: 300 mg Glucagon (Glucagen Diagnostic Kit) 1 mg IM STAT PRN; Protocol PRN Reason: Hypoglycemia Protocol Hydralazine HCl (Apresoline) 25 mg PO QID [facility] Last Admin: 08/24/17 19:14 Dose: 25 mg Hydromorphone HCl (Dilaudid) 2 mg IVP Q3 PRN PRN Reason: Pain, severe (8-10) Last Admin: 08/24/17 15:43 Dose: 2 mg Vancomycin HCl 500 mg/ Sodium (Chloride) 100 mls @ 100 mls/hr IVPB MWF [facility] PRN Reason: Protocol Last Admin: 08/24/17 09:21 Dose: 100 mls/hr Insulin Detemir (Levemir) 12 unit SC Q12 [facility] Last Admin: 08/24/17 09:22 Dose: 12 unit Insulin Human Regular (Novolin R) 0 unit SC ACHS [facility] PRN Reason: Protocol Last Admin: 08/24/17 19:22 Dose: Not Given Metoclopramide HCl (Reglan) 10 mg IVP DAILY PRN PRN Reason: Nausea/Vomiting Nifedipine (Procardia Xl) 30 mg PO DAILY [facility] Last Admin: 08/24/17 09:22 Dose: 30 mg Pantoprazole Sodium (Protonix Ec Tab) 40 mg PO DAILY [facility] Last Admin: 08/24/17 09:22 Dose: 40 mg Vitamin B Complex/Vit C/Folic Acid (Nephro-Vamshi) 1 tab PO 0800 [facility] Last Admin: 08/24/17 09:23 Dose: 1 tab - Labs Labs: 08/24/17 07:14 08/24/17 07:14 PT 12.2 SECONDS (9.7-12.2) 08/23/17 06:59 INR 1.1 08/23/17 06:59 APTT 32 SECONDS (21-34) 08/23/17 06:59 Assessment and Plan - Assessment and Plan (Free Text) Assessment: esrd on hd m w f and sat anemia of ckd .. h/h stable hypocalcemia .. better mmp p : c/o current care c/o present managemen
[2017-08-25] MEDS: DiphenhydrAMINE 50 mg/ml Inj IVP PRN ×6 (01:26→20:48)
[2017-08-25] MEDS: Multivitamin Vitamin B Complex (Nephro-Vite) Tab PO SCH (08:00)
[2017-08-25] MEDS: (Novolin R) Insulin Human Regular 100 units/ml vial SC SCH ×4 (08:25→21:23)
[2017-08-25] MEDS ORDERED: DiphenhydrAMINE 50 mg/ml Inj IVP ONE (09:50)
[2017-08-25] MEDS: Clotrimazole/Betamethasone Cream(15 gm) TOP SCH (13:11)
[2017-08-25] MEDS: Insulin Detemir 100 units/ml Vial (Levemir) SC SCH ×2 (13:11→21:22)
[2017-08-25] MEDS: Pantoprazole 40 mg EC Tab PO SCH (13:12)
--- NOTE | 2017-08-25 17:13 | CP.PCM.PN ---
Subjective - Date & Time of Evaluation Date of Evaluation: 08/25/17 Time of Evaluation: 09:30 - Subjective Subjective: Podiatry Progress Note - Dr. Noble 31 year old female patinet seen and evaluated at bedside 3 days s/p left hallux nail matrixectomy and painful 3rd digits b/l 1 month s/p 3rd digit total nail avulsions. Patient states she was supposed to be discharged today but then developed SOB and fluid overload. Patient extremely lethargic at time of visit, falling asleep frequently during interview. No complaints to patient's feet today. Denies N/V/F/D/C. Admits to SOB however improving. Objective - Vital Signs/Intake and Output Vital Signs (last 24 hours): Temp Pulse Resp BP Pulse Ox 98 F 86 20 189/96 H 99 08/25/17 16:00 08/25/17 16:00 08/25/17 16:00 08/25/17 16:00 08/25/17 16:00 - Medications Medications: Current Medications Calcium Acetate (Phoslo) 1,334 mg PO TIDCC [facility] Last Admin: 08/25/17 13:17 Dose: Not Given Clonidine HCl (Catapres) 0.3 mg PO BID [facility] Last Admin: 08/24/17 19:14 Dose: 0.3 mg Dextrose (Dextrose 50% Inj) 0 ml IV STAT PRN; Protocol PRN Reason: Hypoglycemia Protocol Dextrose (Glutose 15) 15 gm PO ONCE PRN; Protocol PRN Reason: Hypoglycemia Protocol Last Admin: 08/19/17 08:20 Dose: 15 gm Diphenhydramine HCl (Benadryl) 25 mg IVP Q3 PRN PRN Reason: for itching Last Admin: 08/25/17 14:28 Dose: 25 mg Diphenhydramine HCl (Benadryl) 25 mg IM Q3H PRN PRN Reason: Itching / Pruritus Last Admin: 08/19/17 21:50 Dose: 25 mg Docusate Sodium (Colace) 100 mg PO TID [facility] Last Admin: 08/25/17 13:11 Dose: Not Given Ergocalciferol (Drisdol 50,000 Intl Units Cap) 1 cap PO Q7D [facility] Last Admin: 08/24/17 12:19 Dose: Not Given Ergocalciferol (Drisdol 50,000 Intl Units Cap) 1 cap PO Q7D [facility] Last Admin: 08/23/17 12:55 Dose: 1 cap Gabapentin (Neurontin) 300 mg PO DAILY [facility] Last Admin: 08/25/17 13:11 Dose: Not Given Glucagon (Glucagen Diagnostic Kit) 1 mg IM STAT PRN; Protocol PRN Reason: Hypoglycemia Protocol Hydralazine HCl (Apresoline) 25 mg PO QID [facility] Last Admin: 08/25/17 14:33 Dose: 25 mg Hydromorphone HCl (Dilaudid) 2 mg IVP Q3 PRN PRN Reason: Pain, severe (8-10) Last Admin: 08/25/17 14:29 Dose: 2 mg Vancomycin HCl 500 mg/ Sodium (Chloride) 100 mls @ 100 mls/hr IVPB MWF [facility] PRN Reason: Protocol Last Admin: 08/24/17 09:21 Dose: 100 mls/hr Insulin Detemir (Levemir) 12 unit SC Q12 [facility] Last Admin: 08/25/17 13:11 Dose: Not Given Insulin Human Regular (Novolin R) 0 unit SC ACHS [facility] PRN Reason: Protocol Last Admin: 08/25/17 13:11 Dose: Not Given Metoclopramide HCl (Reglan) 10 mg IVP DAILY PRN PRN Reason: Nausea/Vomiting Nifedipine (Procardia Xl) 30 mg PO DAILY [facility] Last Admin: 08/24/17 09:22 Dose: 30 mg Pantoprazole Sodium (Protonix Ec Tab) 40 mg PO DAILY [facility] Last Admin: 08/25/17 13:12 Dose: Not Given Vitamin B Complex/Vit C/Folic Acid (Nephro-Vamshi) 1 tab PO 0800 [facility] Last Admin: 08/25/17 08:00 Dose: 1 tab - Labs Labs: 08/24/17 07:14 08/24/17 07:14 PT 12.2 SECONDS (9.7-12.2) 08/23/17 06:59 INR 1.1 08/23/17 06:59 APTT 32 SECONDS (21-34) 08/23/17 06:59 - Constitutional Appears: Well, Non-toxic, No Acute Distress - Extremities Exam Additional comments: Left hallux dressing left clean/dry/intact with no strikethrough noted. 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 No Probe to bone. No drainage is noted. No malodor is noted. No sign of acute infection is noted. Right:No open wound is noted to the right 3rd digit. No drainage is noted. Mild erythema is noted to the right 3rd digit. No sign of acute infection is noted. No malodor is noted. Ortho: tenderness noted to the 3rd digit nail beds B/L. Neuro: gross sensation intact - Neurological Exam Neurological Exam: Alert, Awake, Oriented x3 - Psychiatric Exam Psychiatric exam: Normal Affect, Normal Mood Assessment and Plan - Assessment and Plan (Free Text) Assessment: 31 y/o female seen at bedside 3 days s/p left hallux nail matrixectomy, and 1 month s/p bilateral 3rd digit nail avulsions with delayed healing Plan: Patient seen and evaluated Discussed with attending, Dr. Noble Afebrile currently, glucose 313 Continue IV abx DSD applied to 3rd digit bilateral. Dressing to left hallux left intact Patient instructed to continue with IV vanco for outpatient therapy as per Dr. Noble with dialysis Podiatry will continue to follow while in house
--- NOTE | 2017-08-25 17:18 | CP.PCM.PN ---
Subjective - Date & Time of Evaluation Date of Evaluation: 08/25/17 Time of Evaluation: 17:18 Objective - Vital Signs/Intake and Output Vital Signs (last 24 hours): Temp Pulse Resp BP Pulse Ox 98 F 86 20 189/96 H 99 08/25/17 16:00 08/25/17 16:00 08/25/17 16:00 08/25/17 16:00 08/25/17 16:00 - Medications Medications: Current Medications Calcium Acetate (Phoslo) 1,334 mg PO TIDCC [facility] Last Admin: 08/25/17 13:17 Dose: Not Given Clonidine HCl (Catapres) 0.3 mg PO BID [facility] Last Admin: 08/24/17 19:14 Dose: 0.3 mg Dextrose (Dextrose 50% Inj) 0 ml IV STAT PRN; Protocol PRN Reason: Hypoglycemia Protocol Dextrose (Glutose 15) 15 gm PO ONCE PRN; Protocol PRN Reason: Hypoglycemia Protocol Last Admin: 08/19/17 08:20 Dose: 15 gm Diphenhydramine HCl (Benadryl) 25 mg IVP Q3 PRN PRN Reason: for itching Last Admin: 08/25/17 14:28 Dose: 25 mg Diphenhydramine HCl (Benadryl) 25 mg IM Q3H PRN PRN Reason: Itching / Pruritus Last Admin: 08/19/17 21:50 Dose: 25 mg Docusate Sodium (Colace) 100 mg PO TID [facility] Last Admin: 08/25/17 13:11 Dose: Not Given Ergocalciferol (Drisdol 50,000 Intl Units Cap) 1 cap PO Q7D [facility] Last Admin: 08/24/17 12:19 Dose: Not Given Ergocalciferol (Drisdol 50,000 Intl Units Cap) 1 cap PO Q7D [facility] Last Admin: 08/23/17 12:55 Dose: 1 cap Gabapentin (Neurontin) 300 mg PO DAILY [facility] Last Admin: 08/25/17 13:11 Dose: Not Given Glucagon (Glucagen Diagnostic Kit) 1 mg IM STAT PRN; Protocol PRN Reason: Hypoglycemia Protocol Hydralazine HCl (Apresoline) 25 mg PO QID [facility] Last Admin: 08/25/17 14:33 Dose: 25 mg Hydromorphone HCl (Dilaudid) 2 mg IVP Q3 PRN PRN Reason: Pain, severe (8-10) Last Admin: 08/25/17 14:29 Dose: 2 mg Vancomycin HCl 500 mg/ Sodium (Chloride) 100 mls @ 100 mls/hr IVPB MWF [facility] PRN Reason: Protocol Last Admin: 08/24/17 09:21 Dose: 100 mls/hr Insulin Detemir (Levemir) 12 unit SC Q12 [facility] Last Admin: 08/25/17 13:11 Dose: Not Given Insulin Human Regular (Novolin R) 0 unit SC ACHS [facility] PRN Reason: Protocol Last Admin: 08/25/17 13:11 Dose: Not Given Metoclopramide HCl (Reglan) 10 mg IVP DAILY PRN PRN Reason: Nausea/Vomiting Nifedipine (Procardia Xl) 30 mg PO DAILY [facility] Last Admin: 08/24/17 09:22 Dose: 30 mg Pantoprazole Sodium (Protonix Ec Tab) 40 mg PO DAILY [facility] Last Admin: 08/25/17 13:12 Dose: Not Given Vitamin B Complex/Vit C/Folic Acid (Nephro-Vamshi) 1 tab PO 0800 [facility] Last Admin: 08/25/17 08:00 Dose: 1 tab - Labs Labs: 08/24/17 07:14 08/24/17 07:14 PT 12.2 SECONDS (9.7-12.2) 08/23/17 06:59 INR 1.1 08/23/17 06:59 APTT 32 SECONDS (21-34) 08/23/17 06:59
[2017-08-26] MEDS: DiphenhydrAMINE 50 mg/ml Inj IVP PRN ×8 (00:41→22:00)
[2017-08-26] MEDS: (Novolin R) Insulin Human Regular 100 units/ml vial SC SCH ×4 (07:45→22:12)
[2017-08-26] MEDS: Multivitamin Vitamin B Complex (Nephro-Vite) Tab PO SCH (08:11)
[2017-08-26] MEDS: NIFEdipine 30 mg ER Tab PO SCH (10:10)
[2017-08-26] MEDS: Pantoprazole 40 mg EC Tab PO SCH (10:10)
[2017-08-26] MEDS: Insulin Detemir 100 units/ml Vial (Levemir) SC SCH ×2 (10:11→22:10)
--- NOTE | 2017-08-26 11:13 | CP.PCM.PN ---
Subjective - Date & Time of Evaluation Date of Evaluation: 08/26/17 Time of Evaluation: 11:12 - Subjective Subjective: Podiatry Progress Note - Dr. Noble 31 year old female patinet seen and evaluated at bedside 4 days s/p left hallux nail matrixectomy and painful 3rd digits b/l 1 month s/p 3rd digit total nail avulsions. No acute events overnight. Patient still lethargic today, falling asleep during interview. Patient reports continued SOB with no improvement since yesterday's visit. Endorses that the swelling all over her body has not decreased. Patient reports her 3rd digit b/l are swollen as well. Dressings to her 3rd digit b/l are not present. Denies N/V/F/D/C. Objective - Vital Signs/Intake and Output Vital Signs (last 24 hours): Temp Pulse Resp BP Pulse Ox 97.4 F L 92 H 20 178/100 H 96 08/26/17 08:10 08/26/17 08:10 08/26/17 08:10 08/26/17 08:10 08/26/17 08:10 Intake and Output: 08/26/17 08/26/17 06:59 18:59 Intake Total 900 Balance 900 - Medications Medications: Current Medications Calcium Acetate (Phoslo) 1,334 mg PO TIDCC [facility] Last Admin: 08/26/17 08:11 Dose: 1,334 mg Clonidine HCl (Catapres) 0.3 mg PO BID [facility] Last Admin: 08/26/17 10:07 Dose: 0.3 mg Dextrose (Dextrose 50% Inj) 0 ml IV STAT PRN; Protocol PRN Reason: Hypoglycemia Protocol Dextrose (Glutose 15) 15 gm PO ONCE PRN; Protocol PRN Reason: Hypoglycemia Protocol Last Admin: 08/19/17 08:20 Dose: 15 gm Diphenhydramine HCl (Benadryl) 25 mg IVP Q3 PRN PRN Reason: for itching Last Admin: 08/26/17 10:01 Dose: 25 mg Diphenhydramine HCl (Benadryl) 25 mg IM Q3H PRN PRN Reason: Itching / Pruritus Last Admin: 08/19/17 21:50 Dose: 25 mg Docusate Sodium (Colace) 100 mg PO TID [facility] Last Admin: 08/26/17 10:06 Dose: 100 mg Ergocalciferol (Drisdol 50,000 Intl Units Cap) 1 cap PO Q7D [facility] Last Admin: 08/24/17 12:19 Dose: Not Given Ergocalciferol (Drisdol 50,000 Intl Units Cap) 1 cap PO Q7D [facility] Last Admin: 08/23/17 12:55 Dose: 1 cap Gabapentin (Neurontin) 300 mg PO DAILY [facility] Last Admin: 08/26/17 10:07 Dose: 300 mg Glucagon (Glucagen Diagnostic Kit) 1 mg IM STAT PRN; Protocol PRN Reason: Hypoglycemia Protocol Hydralazine HCl (Apresoline) 25 mg PO QID [facility] Last Admin: 08/26/17 10:07 Dose: 25 mg Hydromorphone HCl (Dilaudid) 2 mg IVP Q3 PRN PRN Reason: Pain, severe (8-10) Last Admin: 08/26/17 10:01 Dose: 2 mg Vancomycin HCl 500 mg/ Sodium (Chloride) 100 mls @ 100 mls/hr IVPB MWF [facility] PRN Reason: Protocol Last Admin: 08/24/17 09:21 Dose: 100 mls/hr Insulin Detemir (Levemir) 12 unit SC Q12 [facility] Last Admin: 08/26/17 10:11 Dose: 12 unit Insulin Human Regular (Novolin R) 0 unit SC ACHS [facility] PRN Reason: Protocol Last Admin: 08/26/17 07:45 Dose: 6 unit Metoclopramide HCl (Reglan) 10 mg IVP DAILY PRN PRN Reason: Nausea/Vomiting Nifedipine (Procardia Xl) 30 mg PO DAILY [facility] Last Admin: 08/26/17 10:10 Dose: 30 mg Pantoprazole Sodium (Protonix Ec Tab) 40 mg PO DAILY [facility] Last Admin: 08/26/17 10:10 Dose: 40 mg Vitamin B Complex/Vit C/Folic Acid (Nephro-Vamshi) 1 tab PO 0800 [facility] Last Admin: 08/26/17 08:11 Dose: 1 tab - Labs Labs: 08/24/17 07:14 08/24/17 07:14 PT 12.2 SECONDS (9.7-12.2) 08/23/17 06:59 INR 1.1 08/23/17 06:59 APTT 32 SECONDS (21-34) 08/23/17 06:59 - Constitutional Appears: Well, Non-toxic, No Acute Distress - Extremities Exam Additional comments: Left hallux dressing left clean/dry/intact with no strikethrough noted. 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 No Probe to bone. No drainage is noted. No malodor is noted. No sign of acute infection is noted. Right:No open wound is noted to the right 3rd digit. No drainage is noted. Mild erythema is noted to the right 3rd digit. No sign of acute infection is noted. No malodor is noted. Ortho: tenderness noted to the 3rd digit nail beds B/L. Neuro: gross sensation intact - Neurological Exam Neurological Exam: Alert, Awake, Oriented x3 - Psychiatric Exam Psychiatric exam: Anxious Assessment and Plan - Assessment and Plan (Free Text) Assessment: 31 y/o female seen at bedside 4 days s/p left hallux nail matrixectomy, and 1 month s/p bilateral 3rd digit nail avulsions with delayed healing Plan: Patient seen and evaluated Discussed with attending, Dr. Noble Afebrile currently, glucose 150 (yesterday PM 409) Continue IV abx - Vancomycin 500mg Pain control per medicine Peroxide cleanse + DSD applied to 3rd digit bilateral. Dressing to left hallux left intact Patient instructed to continue with IV vanco for outpatient therapy as per Dr. Noble with dialysis Podiatry will continue to follow while in house
--- NOTE | 2017-08-26 11:38 | CP.PCM.PN ---
Subjective - Date & Time of Evaluation Date of Evaluation: 08/25/17 Time of Evaluation: 15:00 - Subjective Subjective: SEEN ON RENAL F/U JUST COMPLETED HER HD WHILE ON HD HER BP WAS PERFECT NOW AFTER HD HER BP IS HIGH AND SHE IS C/O PAIN SHE WAS REASSURED .. Objective - Vital Signs/Intake and Output Vital Signs (last 24 hours): Temp Pulse Resp BP Pulse Ox 97.4 F L 92 H 20 178/100 H 96 08/26/17 08:10 08/26/17 08:10 08/26/17 08:10 08/26/17 08:10 08/26/17 08:10 Intake and Output: 08/26/17 08/26/17 06:59 18:59 Intake Total 900 Balance 900 - Medications Medications: Current Medications Calcium Acetate (Phoslo) 1,334 mg PO TIDCC [facility] Last Admin: 08/26/17 08:11 Dose: 1,334 mg Clonidine HCl (Catapres) 0.3 mg PO BID [facility] Last Admin: 08/26/17 10:07 Dose: 0.3 mg Dextrose (Dextrose 50% Inj) 0 ml IV STAT PRN; Protocol PRN Reason: Hypoglycemia Protocol Dextrose (Glutose 15) 15 gm PO ONCE PRN; Protocol PRN Reason: Hypoglycemia Protocol Last Admin: 08/19/17 08:20 Dose: 15 gm Diphenhydramine HCl (Benadryl) 25 mg IVP Q3 PRN PRN Reason: for itching Last Admin: 08/26/17 10:01 Dose: 25 mg Diphenhydramine HCl (Benadryl) 25 mg IM Q3H PRN PRN Reason: Itching / Pruritus Last Admin: 08/19/17 21:50 Dose: 25 mg Docusate Sodium (Colace) 100 mg PO TID [facility] Last Admin: 08/26/17 10:06 Dose: 100 mg Ergocalciferol (Drisdol 50,000 Intl Units Cap) 1 cap PO Q7D [facility] Last Admin: 08/24/17 12:19 Dose: Not Given Ergocalciferol (Drisdol 50,000 Intl Units Cap) 1 cap PO Q7D [facility] Last Admin: 08/23/17 12:55 Dose: 1 cap Gabapentin (Neurontin) 300 mg PO DAILY [facility] Last Admin: 08/26/17 10:07 Dose: 300 mg Glucagon (Glucagen Diagnostic Kit) 1 mg IM STAT PRN; Protocol PRN Reason: Hypoglycemia Protocol Hydralazine HCl (Apresoline) 25 mg PO QID [facility] Last Admin: 08/26/17 10:07 Dose: 25 mg Hydromorphone HCl (Dilaudid) 2 mg IVP Q3 PRN PRN Reason: Pain, severe (8-10) Last Admin: 08/26/17 10:01 Dose: 2 mg Vancomycin HCl 500 mg/ Sodium (Chloride) 100 mls @ 100 mls/hr IVPB MWF [facility] PRN Reason: Protocol Last Admin: 08/24/17 09:21 Dose: 100 mls/hr Insulin Detemir (Levemir) 12 unit SC Q12 [facility] Last Admin: 08/26/17 10:11 Dose: 12 unit Insulin Human Regular (Novolin R) 0 unit SC ACHS [facility] PRN Reason: Protocol Last Admin: 08/26/17 07:45 Dose: 6 unit Metoclopramide HCl (Reglan) 10 mg IVP DAILY PRN PRN Reason: Nausea/Vomiting Nifedipine (Procardia Xl) 30 mg PO DAILY [facility] Last Admin: 08/26/17 10:10 Dose: 30 mg Pantoprazole Sodium (Protonix Ec Tab) 40 mg PO DAILY [facility] Last Admin: 08/26/17 10:10 Dose: 40 mg Vitamin B Complex/Vit C/Folic Acid (Nephro-Vamshi) 1 tab PO 0800 [facility] Last Admin: 08/26/17 08:11 Dose: 1 tab - Labs Labs: 08/24/17 07:14 08/24/17 07:14 PT 12.2 SECONDS (9.7-12.2) 08/23/17 06:59 INR 1.1 08/23/17 06:59 APTT 32 SECONDS (21-34) 08/23/17 06:59 Assessment and Plan - Assessment and Plan (Free Text) Assessment: ESRD ON HD M W F AND SAT ANEMIA OF CKD .. RE START EPO HYPOCALCEMIA .. GETTING BETTER ON PO VIT D + PHOSLO 2 TABS PO TID MMP P : C/O CURRENT CARE C/O PRESENT MANAGEMENT
[2017-08-26] MEDS ORDERED: Benzocaine/Menthol (Cepacol) Lozenge MT PRN (11:51)
--- NOTE | 2017-08-26 13:01 | CP.PCM.PN ---
Subjective - Date & Time of Evaluation Date of Evaluation: 08/26/17 Time of Evaluation: 13:01 Objective - Vital Signs/Intake and Output Vital Signs (last 24 hours): Temp Pulse Resp BP Pulse Ox 97.8 F 88 20 175/96 H 97 08/26/17 11:44 08/26/17 11:44 08/26/17 11:44 08/26/17 11:44 08/26/17 11:44 Intake and Output: 08/26/17 08/26/17 06:59 18:59 Intake Total 900 Balance 900 - Medications Medications: Current Medications Benzocaine/Menthol (Cepacol Sore Throat) 1 esthela MT BID PRN PRN Reason: Sore Throat Last Admin: 08/26/17 12:00 Dose: 1 esthela Calcium Acetate (Phoslo) 1,334 mg PO TIDCC [facility] Last Admin: 08/26/17 08:11 Dose: 1,334 mg Clonidine HCl (Catapres) 0.3 mg PO BID [facility] Last Admin: 08/26/17 10:07 Dose: 0.3 mg Dextrose (Dextrose 50% Inj) 0 ml IV STAT PRN; Protocol PRN Reason: Hypoglycemia Protocol Dextrose (Glutose 15) 15 gm PO ONCE PRN; Protocol PRN Reason: Hypoglycemia Protocol Last Admin: 08/19/17 08:20 Dose: 15 gm Diphenhydramine HCl (Benadryl) 25 mg IVP Q3 PRN PRN Reason: for itching Last Admin: 08/26/17 10:01 Dose: 25 mg Diphenhydramine HCl (Benadryl) 25 mg IM Q3H PRN PRN Reason: Itching / Pruritus Last Admin: 08/19/17 21:50 Dose: 25 mg Docusate Sodium (Colace) 100 mg PO TID [facility] Last Admin: 08/26/17 10:06 Dose: 100 mg Ergocalciferol (Drisdol 50,000 Intl Units Cap) 1 cap PO Q7D [facility] Last Admin: 08/24/17 12:19 Dose: Not Given Ergocalciferol (Drisdol 50,000 Intl Units Cap) 1 cap PO Q7D [facility] Last Admin: 08/23/17 12:55 Dose: 1 cap Gabapentin (Neurontin) 300 mg PO DAILY [facility] Last Admin: 08/26/17 10:07 Dose: 300 mg Glucagon (Glucagen Diagnostic Kit) 1 mg IM STAT PRN; Protocol PRN Reason: Hypoglycemia Protocol Hydralazine HCl (Apresoline) 25 mg PO QID [facility] Last Admin: 08/26/17 10:07 Dose: 25 mg Hydromorphone HCl (Dilaudid) 2 mg IVP Q3 PRN PRN Reason: Pain, severe (8-10) Last Admin: 08/26/17 10:01 Dose: 2 mg Vancomycin HCl 500 mg/ Sodium (Chloride) 100 mls @ 100 mls/hr IVPB MWF [facility] PRN Reason: Protocol Last Admin: 08/24/17 09:21 Dose: 100 mls/hr Insulin Detemir (Levemir) 12 unit SC Q12 [facility] Last Admin: 08/26/17 10:11 Dose: 12 unit Insulin Human Regular (Novolin R) 0 unit SC ACHS [facility] PRN Reason: Protocol Last Admin: 08/26/17 07:45 Dose: 6 unit Metoclopramide HCl (Reglan) 10 mg IVP DAILY PRN PRN Reason: Nausea/Vomiting Nifedipine (Procardia Xl) 30 mg PO DAILY [facility] Last Admin: 08/26/17 10:10 Dose: 30 mg Pantoprazole Sodium (Protonix Ec Tab) 40 mg PO DAILY [facility] Last Admin: 08/26/17 10:10 Dose: 40 mg Vitamin B Complex/Vit C/Folic Acid (Nephro-Vamshi) 1 tab PO 0800 [facility] Last Admin: 08/26/17 08:11 Dose: 1 tab - Labs Labs: 08/24/17 07:14 08/24/17 07:14 PT 12.2 SECONDS (9.7-12.2) 08/23/17 06:59 INR 1.1 08/23/17 06:59 APTT 32 SECONDS (21-34) 08/23/17 06:59
--- NOTE | 2017-08-26 15:38 | CP.PCM.PN ---
Subjective - Date & Time of Evaluation Date of Evaluation: 08/26/17 Time of Evaluation: 09:00 - Subjective Subjective: pain is less afebrile alert NAD Objective - Vital Signs/Intake and Output Vital Signs (last 24 hours): Temp Pulse Resp BP Pulse Ox 97.8 F 88 20 175/96 H 97 08/26/17 11:44 08/26/17 11:44 08/26/17 11:44 08/26/17 11:44 08/26/17 11:44 Intake and Output: 08/26/17 08/26/17 06:59 18:59 Intake Total 900 400 Balance 900 400 - Medications Medications: Current Medications Benzocaine/Menthol (Cepacol Sore Throat) 1 esthela MT BID PRN PRN Reason: Sore Throat Last Admin: 08/26/17 12:00 Dose: 1 esthela Calcium Acetate (Phoslo) 1,334 mg PO TIDCC [facility] Last Admin: 08/26/17 12:55 Dose: 1,334 mg Clonidine HCl (Catapres) 0.3 mg PO BID [facility] Last Admin: 08/26/17 10:07 Dose: 0.3 mg Dextrose (Dextrose 50% Inj) 0 ml IV STAT PRN; Protocol PRN Reason: Hypoglycemia Protocol Dextrose (Glutose 15) 15 gm PO ONCE PRN; Protocol PRN Reason: Hypoglycemia Protocol Last Admin: 08/19/17 08:20 Dose: 15 gm Diphenhydramine HCl (Benadryl) 25 mg IVP Q3 PRN PRN Reason: for itching Last Admin: 08/26/17 13:01 Dose: 25 mg Diphenhydramine HCl (Benadryl) 25 mg IM Q3H PRN PRN Reason: Itching / Pruritus Last Admin: 08/19/17 21:50 Dose: 25 mg Docusate Sodium (Colace) 100 mg PO TID [facility] Last Admin: 08/26/17 14:06 Dose: 100 mg Ergocalciferol (Drisdol 50,000 Intl Units Cap) 1 cap PO Q7D [facility] Last Admin: 08/24/17 12:19 Dose: Not Given Ergocalciferol (Drisdol 50,000 Intl Units Cap) 1 cap PO Q7D [facility] Last Admin: 08/23/17 12:55 Dose: 1 cap Gabapentin (Neurontin) 300 mg PO DAILY [facility] Last Admin: 08/26/17 10:07 Dose: 300 mg Glucagon (Glucagen Diagnostic Kit) 1 mg IM STAT PRN; Protocol PRN Reason: Hypoglycemia Protocol Hydralazine HCl (Apresoline) 25 mg PO QID [facility] Last Admin: 08/26/17 14:07 Dose: 25 mg Hydromorphone HCl (Dilaudid) 2 mg IVP Q3 PRN PRN Reason: Pain, severe (8-10) Last Admin: 08/26/17 13:01 Dose: 2 mg Vancomycin HCl 500 mg/ Sodium (Chloride) 100 mls @ 100 mls/hr IVPB MWF [facility] PRN Reason: Protocol Last Admin: 08/24/17 09:21 Dose: 100 mls/hr Insulin Detemir (Levemir) 12 unit SC Q12 [facility] Last Admin: 08/26/17 10:11 Dose: 12 unit Insulin Human Regular (Novolin R) 0 unit SC ACHS [facility] PRN Reason: Protocol Last Admin: 08/26/17 12:00 Dose: Not Given Metoclopramide HCl (Reglan) 10 mg IVP DAILY PRN PRN Reason: Nausea/Vomiting Nifedipine (Procardia Xl) 30 mg PO DAILY [facility] Last Admin: 08/26/17 10:10 Dose: 30 mg Pantoprazole Sodium (Protonix Ec Tab) 40 mg PO DAILY [facility] Last Admin: 08/26/17 10:10 Dose: 40 mg Vitamin B Complex/Vit C/Folic Acid (Nephro-Vamshi) 1 tab PO 0800 [facility] Last Admin: 08/26/17 08:11 Dose: 1 tab - Labs Labs: 08/24/17 07:14 08/24/17 07:14 PT 12.2 SECONDS (9.7-12.2) 08/23/17 06:59 INR 1.1 08/23/17 06:59 APTT 32 SECONDS (21-34) 08/23/17 06:59 - Constitutional Appears: Non-toxic, Chronically Ill - Head Exam Head Exam: NORMOCEPHALIC - Eye Exam Eye Exam: PERRL - ENT Exam ENT Exam: Mucous Membranes Dry - Neck Exam Neck Exam: absent: Lymphadenopathy - Respiratory Exam Respiratory Exam: Decreased Breath Sounds - Cardiovascular Exam Cardiovascular Exam: REGULAR RHYTHM - GI/Abdominal Exam GI & Abdominal Exam: Distended - Rectal Exam Rectal Exam: Deferred - Exam Exam: NORMAL INSPECTION - Extremities Exam Extremities Exam: Pedal Edema, Tenderness - Back Exam Back Exam: absent: CVA tenderness (L), CVA tenderness (R) - Neurological Exam Neurological Exam: Alert, Awake, Oriented x3 Assessment and Plan - Assessment and Plan (Free Text) Plan: cont iv vanco for 3-6 weeks
[2017-08-27] MEDS: DiphenhydrAMINE 50 mg/ml Inj IVP PRN ×8 (01:08→22:50)
[2017-08-27] MEDS: (Novolin R) Insulin Human Regular 100 units/ml vial SC SCH ×4 (07:30→21:47)
[2017-08-27] MEDS: Multivitamin Vitamin B Complex (Nephro-Vite) Tab PO SCH (08:51)
[2017-08-27] MEDS: Insulin Detemir 100 units/ml Vial (Levemir) SC SCH ×2 (10:30→22:50)
--- NOTE | 2017-08-27 11:57 | CP.PCM.PN ---
Subjective - Date & Time of Evaluation Date of Evaluation: 08/27/17 Time of Evaluation: 11:52 - Subjective Subjective: Podiatry Progress Note - Dr. Noble 31 year old female patient seen and evaluated at bedside 5 days s/p left hallux nail matrixectomy, and painful 3rd digits b/l 1 month s/p 3rd digit total nail avulsions. No acute events overnight. Patient still lethargic today, falling asleep during interview. Patient reports her 3rd digit b/l are swollen as well. Dressings to her 3rd digit b/l are not present. Patient reports that the dressing fell off. Patient reports the same pain to her 3rd digits. Denies N/V/F /D/C. Objective - Vital Signs/Intake and Output Vital Signs (last 24 hours): Temp Pulse Resp BP Pulse Ox 97.2 F L 114 H 20 186/101 H 100 08/27/17 09:45 08/27/17 09:45 08/26/17 23:23 08/27/17 09:45 08/26/17 23:23 - Medications Medications: Current Medications Benzocaine/Menthol (Cepacol Sore Throat) 1 esthela MT BID PRN PRN Reason: Sore Throat Last Admin: 08/26/17 12:00 Dose: 1 esthela Calcium Acetate (Phoslo) 1,334 mg PO TIDCC [facility] Last Admin: 08/27/17 08:51 Dose: 1,334 mg Clonidine HCl (Catapres) 0.3 mg PO BID [facility] Last Admin: 08/26/17 17:45 Dose: 0.3 mg Dextrose (Dextrose 50% Inj) 0 ml IV STAT PRN; Protocol PRN Reason: Hypoglycemia Protocol Dextrose (Glutose 15) 15 gm PO ONCE PRN; Protocol PRN Reason: Hypoglycemia Protocol Last Admin: 08/19/17 08:20 Dose: 15 gm Diphenhydramine HCl (Benadryl) 25 mg IVP Q3 PRN PRN Reason: for itching Last Admin: 08/27/17 10:04 Dose: 25 mg Diphenhydramine HCl (Benadryl) 25 mg IM Q3H PRN PRN Reason: Itching / Pruritus Last Admin: 08/19/17 21:50 Dose: 25 mg Diphenhydramine HCl (Benadryl) 25 mg IVP ONCE ONE Stop: 08/27/17 12:01 Docusate Sodium (Colace) 100 mg PO TID [facility] Last Admin: 08/26/17 17:45 Dose: 100 mg Ergocalciferol (Drisdol 50,000 Intl Units Cap) 1 cap PO Q7D [facility] Last Admin: 08/24/17 12:19 Dose: Not Given Ergocalciferol (Drisdol 50,000 Intl Units Cap) 1 cap PO Q7D [facility] Last Admin: 08/23/17 12:55 Dose: 1 cap Gabapentin (Neurontin) 300 mg PO DAILY [facility] Last Admin: 08/26/17 10:07 Dose: 300 mg Glucagon (Glucagen Diagnostic Kit) 1 mg IM STAT PRN; Protocol PRN Reason: Hypoglycemia Protocol Hydralazine HCl (Apresoline) 25 mg PO QID [facility] Last Admin: 08/26/17 22:00 Dose: 25 mg Hydromorphone HCl (Dilaudid) 2 mg IVP Q3 PRN PRN Reason: Pain, severe (8-10) Last Admin: 08/27/17 10:05 Dose: 2 mg Vancomycin HCl 500 mg/ Sodium (Chloride) 100 mls @ 100 mls/hr IVPB MWF [facility] PRN Reason: Protocol Last Admin: 08/24/17 09:21 Dose: 100 mls/hr Insulin Detemir (Levemir) 12 unit SC Q12 [facility] Last Admin: 08/26/17 22:10 Dose: 12 unit Insulin Human Regular (Novolin R) 0 unit SC ACHS [facility] PRN Reason: Protocol Last Admin: 08/27/17 07:30 Dose: Not Given Metoclopramide HCl (Reglan) 10 mg IVP DAILY PRN PRN Reason: Nausea/Vomiting Nifedipine (Procardia Xl) 30 mg PO DAILY [facility] Last Admin: 08/26/17 10:10 Dose: 30 mg Pantoprazole Sodium (Protonix Ec Tab) 40 mg PO DAILY [facility] Last Admin: 08/26/17 10:10 Dose: 40 mg Vitamin B Complex/Vit C/Folic Acid (Nephro-Vamshi) 1 tab PO 0800 [facility] Last Admin: 08/27/17 08:51 Dose: 1 tab - Labs Labs: 08/24/17 07:14 08/24/17 07:14 PT 12.2 SECONDS (9.7-12.2) 08/23/17 06:59 INR 1.1 08/23/17 06:59 APTT 32 SECONDS (21-34) 08/23/17 06:59 - Constitutional Appears: Non-toxic, No Acute Distress - Extremities Exam Additional comments: Bilateral lower extremity exam VASC: DP and PT pulses palpable 2/4 bilaterally, [employer] less than 3 seconds to all digits bilaterally, mild localized non-pitting edema noted to the 3rd digits bilaterally ORTHO: tenderness noted to the 3rd digit nail beds B/L. NEURO: gross sensation intact DERM: Left: Small open wound noted to Left 3rd digit distal aspect at the site of nail avulsion measuring 0.3cm x 0.3cm x 0.2cm with mild erythema around the site of nail avulsion. No Probe to bone. No drainage is noted. No malodor is noted. No sign of acute infection is noted. Left hallux with sutures intact and no dehiscence; no clinical signs of infection. Right:No open wound is noted to the right 3rd digit. No drainage is noted. Mild erythema is noted to the right 3rd digit. No sign of acute infection is noted. No malodor is noted. - Neurological Exam Neurological Exam: Alert, Oriented x3 - Psychiatric Exam Psychiatric exam: Normal Affect, Normal Mood Assessment and Plan - Assessment and Plan (Free Text) Assessment: 31 y/o female seen at bedside 5 days s/p left hallux nail matrixectomy, and 1 month s/p bilateral 3rd digit nail avulsions with delayed healing Plan: Patient seen and evaluated Discussed plan in detail with attending, Dr. Noble Vitals, labs, charts reviewed- afebrile currently, glucose 94 Continue IV abx - Vancomycin 500mg Pain control per medicine Peroxide cleanse + DSD applied to 3rd digit bilateral and hallux. Patient instructed to continue with IV vanco for outpatient therapy as per Dr. Noble with dialysis Podiatry will continue to follow while in house
[2017-08-27] MEDS ORDERED: DiphenhydrAMINE 50 mg/ml Inj IVP ONE (12:00)
--- NOTE | 2017-08-27 13:50 | CP.PCM.PN ---
Subjective - Date & Time of Evaluation Date of Evaluation: 08/27/17 Time of Evaluation: 13:48 - Subjective Subjective: DISCUSSED ABX RECOMMENDATIONS FOR D/C WITH DR. GREER. PER DR. GREER PT TO CONTINUE VANCOMYCIN 500 MG IV Q M-W- (W EACH HD SESSION) FOR 3-6 WEEKS. 6 WEEKS REGIMEN WOULD BENEFIT THE PT SHE HAS UNCONTROLLED DM AND ESRD. NOTIFIED DR. MEEHAN AND IN AGREEMENT WITH PLAN. WILL DISCUSS WITH PT TODAY. NO FURTHER ORDERS AT THIS TIME. Objective - Vital Signs/Intake and Output Vital Signs (last 24 hours): Temp Pulse Resp BP Pulse Ox 97.2 F L 114 H 20 154/92 H 100 08/27/17 09:45 08/27/17 09:45 08/26/17 23:23 08/27/17 12:45 08/26/17 23:23 - Medications Medications: Current Medications Benzocaine/Menthol (Cepacol Sore Throat) 1 esthela MT BID PRN PRN Reason: Sore Throat Last Admin: 08/26/17 12:00 Dose: 1 esthela Calcium Acetate (Phoslo) 1,334 mg PO TIDCC [facility] Last Admin: 08/27/17 08:51 Dose: 1,334 mg Clonidine HCl (Catapres) 0.3 mg PO BID [facility] Last Admin: 08/26/17 17:45 Dose: 0.3 mg Dextrose (Dextrose 50% Inj) 0 ml IV STAT PRN; Protocol PRN Reason: Hypoglycemia Protocol Dextrose (Glutose 15) 15 gm PO ONCE PRN; Protocol PRN Reason: Hypoglycemia Protocol Last Admin: 08/19/17 08:20 Dose: 15 gm Diphenhydramine HCl (Benadryl) 25 mg IVP Q3 PRN PRN Reason: for itching Last Admin: 08/27/17 13:37 Dose: 25 mg Diphenhydramine HCl (Benadryl) 25 mg IM Q3H PRN PRN Reason: Itching / Pruritus Last Admin: 08/19/17 21:50 Dose: 25 mg Docusate Sodium (Colace) 100 mg PO TID [facility] Last Admin: 08/26/17 17:45 Dose: 100 mg Ergocalciferol (Drisdol 50,000 Intl Units Cap) 1 cap PO Q7D [facility] Last Admin: 08/24/17 12:19 Dose: Not Given Ergocalciferol (Drisdol 50,000 Intl Units Cap) 1 cap PO Q7D [facility] Last Admin: 08/23/17 12:55 Dose: 1 cap Gabapentin (Neurontin) 300 mg PO DAILY [facility] Last Admin: 08/26/17 10:07 Dose: 300 mg Glucagon (Glucagen Diagnostic Kit) 1 mg IM STAT PRN; Protocol PRN Reason: Hypoglycemia Protocol Hydralazine HCl (Apresoline) 25 mg PO QID [facility] Last Admin: 08/26/17 22:00 Dose: 25 mg Hydromorphone HCl (Dilaudid) 2 mg IVP Q3 PRN PRN Reason: Pain, severe (8-10) Last Admin: 08/27/17 13:37 Dose: 2 mg Vancomycin HCl 500 mg/ Sodium (Chloride) 100 mls @ 100 mls/hr IVPB MWF [facility] PRN Reason: Protocol Last Admin: 08/24/17 09:21 Dose: 100 mls/hr Insulin Detemir (Levemir) 12 unit SC Q12 [facility] Last Admin: 08/26/17 22:10 Dose: 12 unit Insulin Human Regular (Novolin R) 0 unit SC ACHS [facility] PRN Reason: Protocol Last Admin: 08/27/17 07:30 Dose: Not Given Metoclopramide HCl (Reglan) 10 mg IVP DAILY PRN PRN Reason: Nausea/Vomiting Nifedipine (Procardia Xl) 30 mg PO DAILY [facility] Last Admin: 08/26/17 10:10 Dose: 30 mg Pantoprazole Sodium (Protonix Ec Tab) 40 mg PO DAILY [facility] Last Admin: 08/26/17 10:10 Dose: 40 mg Vitamin B Complex/Vit C/Folic Acid (Nephro-Vamshi) 1 tab PO 0800 [facility] Last Admin: 08/27/17 08:51 Dose: 1 tab - Labs Labs: 08/24/17 07:14 08/24/17 07:14 PT 12.2 SECONDS (9.7-12.2) 08/23/17 06:59 INR 1.1 08/23/17 06:59 APTT 32 SECONDS (21-34) 08/23/17 06:59
--- NOTE | 2017-08-27 13:53 | CP.PCM.PN ---
Subjective - Date & Time of Evaluation Date of Evaluation: 08/27/17 Time of Evaluation: 13:53 Objective - Vital Signs/Intake and Output Vital Signs (last 24 hours): Temp Pulse Resp BP Pulse Ox 97.2 F L 114 H 20 154/92 H 100 08/27/17 09:45 08/27/17 09:45 08/26/17 23:23 08/27/17 12:45 08/26/17 23:23 - Medications Medications: Current Medications Benzocaine/Menthol (Cepacol Sore Throat) 1 esthela MT BID PRN PRN Reason: Sore Throat Last Admin: 08/26/17 12:00 Dose: 1 esthela Calcium Acetate (Phoslo) 1,334 mg PO TIDCC [facility] Last Admin: 08/27/17 08:51 Dose: 1,334 mg Clonidine HCl (Catapres) 0.3 mg PO BID [facility] Last Admin: 08/26/17 17:45 Dose: 0.3 mg Dextrose (Dextrose 50% Inj) 0 ml IV STAT PRN; Protocol PRN Reason: Hypoglycemia Protocol Dextrose (Glutose 15) 15 gm PO ONCE PRN; Protocol PRN Reason: Hypoglycemia Protocol Last Admin: 08/19/17 08:20 Dose: 15 gm Diphenhydramine HCl (Benadryl) 25 mg IVP Q3 PRN PRN Reason: for itching Last Admin: 08/27/17 13:37 Dose: 25 mg Diphenhydramine HCl (Benadryl) 25 mg IM Q3H PRN PRN Reason: Itching / Pruritus Last Admin: 08/19/17 21:50 Dose: 25 mg Docusate Sodium (Colace) 100 mg PO TID [facility] Last Admin: 08/26/17 17:45 Dose: 100 mg Ergocalciferol (Drisdol 50,000 Intl Units Cap) 1 cap PO Q7D [facility] Last Admin: 08/24/17 12:19 Dose: Not Given Ergocalciferol (Drisdol 50,000 Intl Units Cap) 1 cap PO Q7D [facility] Last Admin: 08/23/17 12:55 Dose: 1 cap Gabapentin (Neurontin) 300 mg PO DAILY [facility] Last Admin: 08/26/17 10:07 Dose: 300 mg Glucagon (Glucagen Diagnostic Kit) 1 mg IM STAT PRN; Protocol PRN Reason: Hypoglycemia Protocol Hydralazine HCl (Apresoline) 25 mg PO QID [facility] Last Admin: 08/26/17 22:00 Dose: 25 mg Hydromorphone HCl (Dilaudid) 2 mg IVP Q3 PRN PRN Reason: Pain, severe (8-10) Last Admin: 08/27/17 13:37 Dose: 2 mg Vancomycin HCl 500 mg/ Sodium (Chloride) 100 mls @ 100 mls/hr IVPB MWF [facility] PRN Reason: Protocol Last Admin: 08/24/17 09:21 Dose: 100 mls/hr Insulin Detemir (Levemir) 12 unit SC Q12 [facility] Last Admin: 08/26/17 22:10 Dose: 12 unit Insulin Human Regular (Novolin R) 0 unit SC ACHS [facility] PRN Reason: Protocol Last Admin: 08/27/17 07:30 Dose: Not Given Metoclopramide HCl (Reglan) 10 mg IVP DAILY PRN PRN Reason: Nausea/Vomiting Nifedipine (Procardia Xl) 30 mg PO DAILY [facility] Last Admin: 08/26/17 10:10 Dose: 30 mg Pantoprazole Sodium (Protonix Ec Tab) 40 mg PO DAILY [facility] Last Admin: 08/26/17 10:10 Dose: 40 mg Vitamin B Complex/Vit C/Folic Acid (Nephro-Vamshi) 1 tab PO 0800 [facility] Last Admin: 08/27/17 08:51 Dose: 1 tab - Labs Labs: 08/24/17 07:14 08/24/17 07:14 PT 12.2 SECONDS (9.7-12.2) 08/23/17 06:59 INR 1.1 08/23/17 06:59 APTT 32 SECONDS (21-34) 08/23/17 06:59
[2017-08-27] MEDS: Pantoprazole 40 mg EC Tab PO SCH (15:00)
[2017-08-27] MEDS: NIFEdipine 30 mg ER Tab PO SCH (15:00)
--- NOTE | 2017-08-27 17:25 | CP.PCM.PN ---
Subjective - Date & Time of Evaluation Date of Evaluation: 08/27/17 Time of Evaluation: 16:00 - Subjective Subjective: SEEN ON RENAL F/U SEEN ON HD FEELS IMPROVED ALL PREVIOUS EMR REVIEWED Objective - Vital Signs/Intake and Output Vital Signs (last 24 hours): Temp Pulse Resp BP Pulse Ox 98.3 F 117 H 20 157/92 H 97 08/27/17 16:43 08/27/17 16:43 08/27/17 16:43 08/27/17 16:43 08/27/17 16:43 - Medications Medications: Current Medications Benzocaine/Menthol (Cepacol Sore Throat) 1 esthela MT BID PRN PRN Reason: Sore Throat Last Admin: 08/26/17 12:00 Dose: 1 esthela Calcium Acetate (Phoslo) 1,334 mg PO TIDCC [facility] Last Admin: 08/27/17 12:02 Dose: Not Given Clonidine HCl (Catapres) 0.3 mg PO BID [facility] Last Admin: 08/27/17 10:30 Dose: Not Given Dextrose (Dextrose 50% Inj) 0 ml IV STAT PRN; Protocol PRN Reason: Hypoglycemia Protocol Dextrose (Glutose 15) 15 gm PO ONCE PRN; Protocol PRN Reason: Hypoglycemia Protocol Last Admin: 08/19/17 08:20 Dose: 15 gm Diphenhydramine HCl (Benadryl) 25 mg IVP Q3 PRN PRN Reason: for itching Last Admin: 08/27/17 16:53 Dose: 25 mg Diphenhydramine HCl (Benadryl) 25 mg IM Q3H PRN PRN Reason: Itching / Pruritus Last Admin: 08/19/17 21:50 Dose: 25 mg Docusate Sodium (Colace) 100 mg PO TID [facility] Last Admin: 08/27/17 15:00 Dose: 100 mg Ergocalciferol (Drisdol 50,000 Intl Units Cap) 1 cap PO Q7D [facility] Last Admin: 08/24/17 12:19 Dose: Not Given Ergocalciferol (Drisdol 50,000 Intl Units Cap) 1 cap PO Q7D [facility] Last Admin: 08/23/17 12:55 Dose: 1 cap Gabapentin (Neurontin) 300 mg PO DAILY [facility] Last Admin: 08/27/17 15:00 Dose: 300 mg Glucagon (Glucagen Diagnostic Kit) 1 mg IM STAT PRN; Protocol PRN Reason: Hypoglycemia Protocol Hydralazine HCl (Apresoline) 25 mg PO QID [facility] Last Admin: 08/27/17 15:00 Dose: 25 mg Hydromorphone HCl (Dilaudid) 2 mg IVP Q3 PRN PRN Reason: Pain, severe (8-10) Last Admin: 08/27/17 16:54 Dose: 2 mg Vancomycin HCl 500 mg/ Sodium (Chloride) 100 mls @ 100 mls/hr IVPB MWF [facility] PRN Reason: Protocol Last Admin: 08/27/17 15:01 Dose: 100 mls/hr Insulin Detemir (Levemir) 12 unit SC Q12 [facility] Last Admin: 08/27/17 10:30 Dose: Not Given Insulin Human Regular (Novolin R) 0 unit SC ACHS [facility] PRN Reason: Protocol Last Admin: 08/27/17 12:02 Dose: Not Given Metoclopramide HCl (Reglan) 10 mg IVP DAILY PRN PRN Reason: Nausea/Vomiting Nifedipine (Procardia Xl) 30 mg PO DAILY [facility] Last Admin: 08/27/17 15:00 Dose: 30 mg Pantoprazole Sodium (Protonix Ec Tab) 40 mg PO DAILY [facility] Last Admin: 08/27/17 15:00 Dose: 40 mg Vitamin B Complex/Vit C/Folic Acid (Nephro-Vamshi) 1 tab PO 0800 [facility] Last Admin: 08/27/17 08:51 Dose: 1 tab - Labs Labs: 08/24/17 07:14 08/24/17 07:14 PT 12.2 SECONDS (9.7-12.2) 08/23/17 06:59 INR 1.1 08/23/17 06:59 APTT 32 SECONDS (21-34) 08/23/17 06:59 Assessment and Plan - Assessment and Plan (Free Text) Assessment: ESRD ON HD M W F AND SAT ANEMIA OF CKD .. ON EPO AND VENIFER ELECTROLYTES ABN .. HYPERCALEMIA .. HYPOCALCEMIA .. ON HD BETTER P : C/O CURRENT CARE C/O PRESENT MEDS
--- NOTE | 2017-08-27 18:23 | CT ---
EXAM: CT Left Upper Extremity Without Intravenous Contrast, Shoulder CLINICAL HISTORY: 31 years old, female; Pain; Shoulder; Left; Patient HX: Left shoulder pain/h/o infection arthritis; Additional info: Left shoulder and upper acw pain; TECHNIQUE: Axial computed tomography images of the left shoulder without intravenous contrast. All CT scans at this facility use one or more dose reduction techniques, viz.: automated exposure control; ma/kV adjustment per patient size (including targeted exams where dose is matched to indication; i.e. head); or iterative reconstruction technique. Coronal and sagittal reformatted images were created and reviewed. COMPARISON: No relevant prior studies available. FINDINGS: Bones/joints: No acute fracture. No dislocation. Moderate erosion along medial aspect of humeral head. Tiny erosions along distal clavicle. Soft tissues: Apparent skin thickening of left inferior breast. Lung apices: Mild mosaic pattern of lung parenchyma, nonspecific. IMPRESSION: 1. Erosive changes of glenohumeral and acromioclavicular joints. Consider inflammatory or infectious etiologies. Suggest arthrocentesis for definitive diagnosis. 2. Skin thickening of left breast. Clinical correlation is needed. 3. Incidental/non-acute findings are described above.
[2017-08-28] MEDS: DiphenhydrAMINE 50 mg/ml Inj IVP PRN ×7 (01:52→22:01)
[2017-08-28] MEDS: Multivitamin Vitamin B Complex (Nephro-Vite) Tab PO SCH (08:42)
[2017-08-28] MEDS: (Novolin R) Insulin Human Regular 100 units/ml vial SC SCH ×4 (08:42→21:26)
[2017-08-28] MEDS: Pantoprazole 40 mg EC Tab PO SCH (09:31)
[2017-08-28] MEDS: Insulin Detemir 100 units/ml Vial (Levemir) SC SCH ×2 (09:32→22:02)
[2017-08-28] MEDS: NIFEdipine 30 mg ER Tab PO SCH (09:32)
--- NOTE | 2017-08-28 13:38 | CP.PCM.PN ---
Subjective - Date & Time of Evaluation Date of Evaluation: 08/28/17 Time of Evaluation: 13:38 Objective - Vital Signs/Intake and Output Vital Signs (last 24 hours): Temp Pulse Resp BP Pulse Ox 97.4 F L 98 H 20 172/101 H 90 L 08/28/17 07:30 08/28/17 07:30 08/28/17 07:30 08/28/17 07:30 08/28/17 07:30 - Medications Medications: Current Medications Benzocaine/Menthol (Cepacol Sore Throat) 1 esthela MT BID PRN PRN Reason: Sore Throat Last Admin: 08/26/17 12:00 Dose: 1 esthela Calcium Acetate (Phoslo) 1,334 mg PO TIDCC [facility] Last Admin: 08/28/17 12:32 Dose: 1,334 mg Clonidine HCl (Catapres) 0.3 mg PO BID [facility] Last Admin: 08/28/17 09:31 Dose: 0.3 mg Dextrose (Dextrose 50% Inj) 0 ml IV STAT PRN; Protocol PRN Reason: Hypoglycemia Protocol Dextrose (Glutose 15) 15 gm PO ONCE PRN; Protocol PRN Reason: Hypoglycemia Protocol Last Admin: 08/19/17 08:20 Dose: 15 gm Diphenhydramine HCl (Benadryl) 25 mg IVP Q3 PRN PRN Reason: for itching Last Admin: 08/28/17 12:28 Dose: 25 mg Diphenhydramine HCl (Benadryl) 25 mg IM Q3H PRN PRN Reason: Itching / Pruritus Last Admin: 08/19/17 21:50 Dose: 25 mg Docusate Sodium (Colace) 100 mg PO TID [facility] Last Admin: 08/28/17 09:31 Dose: 100 mg Ergocalciferol (Drisdol 50,000 Intl Units Cap) 1 cap PO Q7D [facility] Last Admin: 08/24/17 12:19 Dose: Not Given Ergocalciferol (Drisdol 50,000 Intl Units Cap) 1 cap PO Q7D [facility] Last Admin: 08/23/17 12:55 Dose: 1 cap Gabapentin (Neurontin) 300 mg PO DAILY [facility] Last Admin: 08/28/17 09:31 Dose: 300 mg Glucagon (Glucagen Diagnostic Kit) 1 mg IM STAT PRN; Protocol PRN Reason: Hypoglycemia Protocol Hydralazine HCl (Apresoline) 25 mg PO QID [facility] Last Admin: 08/28/17 09:31 Dose: 25 mg Hydromorphone HCl (Dilaudid) 2 mg IVP Q3 PRN PRN Reason: Pain, severe (8-10) Last Admin: 08/28/17 12:28 Dose: 2 mg Vancomycin HCl 500 mg/ Sodium (Chloride) 100 mls @ 100 mls/hr IVPB MWF [facility] PRN Reason: Protocol Last Admin: 08/27/17 15:01 Dose: 100 mls/hr Insulin Detemir (Levemir) 12 unit SC Q12 [facility] Last Admin: 08/28/17 09:32 Dose: 12 unit Insulin Human Regular (Novolin R) 0 unit SC ACHS [facility] PRN Reason: Protocol Last Admin: 08/28/17 12:33 Dose: 2 unit Metoclopramide HCl (Reglan) 10 mg IVP DAILY PRN PRN Reason: Nausea/Vomiting Nifedipine (Procardia Xl) 30 mg PO DAILY [facility] Last Admin: 08/28/17 09:32 Dose: 30 mg Pantoprazole Sodium (Protonix Ec Tab) 40 mg PO DAILY [facility] Last Admin: 08/28/17 09:31 Dose: 40 mg Vitamin B Complex/Vit C/Folic Acid (Nephro-Vamshi) 1 tab PO 0800 [facility] Last Admin: 08/28/17 08:42 Dose: 1 tab - Labs Labs: 08/24/17 07:14 08/24/17 07:14 PT 12.2 SECONDS (9.7-12.2) 08/23/17 06:59 INR 1.1 08/23/17 06:59 APTT 32 SECONDS (21-34) 08/23/17 06:59
--- NOTE | 2017-08-28 14:31 | CP.PCM.PN ---
Subjective - Date & Time of Evaluation Date of Evaluation: 08/28/17 Time of Evaluation: 15:00 - Subjective Subjective: SEEN ON RENAL F/U FEELS BETTER ON IVAB FOR INFECTED DIABETIC FEET Objective - Vital Signs/Intake and Output Vital Signs (last 24 hours): Temp Pulse Resp BP Pulse Ox 97.4 F L 88 20 148/89 90 L 08/28/17 07:30 08/28/17 14:06 08/28/17 07:30 08/28/17 14:06 08/28/17 07:30 - Medications Medications: Current Medications Benzocaine/Menthol (Cepacol Sore Throat) 1 esthela MT BID PRN PRN Reason: Sore Throat Last Admin: 08/26/17 12:00 Dose: 1 esthela Calcium Acetate (Phoslo) 1,334 mg PO TIDCC [facility] Last Admin: 08/28/17 12:32 Dose: 1,334 mg Clonidine HCl (Catapres) 0.3 mg PO BID [facility] Last Admin: 08/28/17 09:31 Dose: 0.3 mg Dextrose (Dextrose 50% Inj) 0 ml IV STAT PRN; Protocol PRN Reason: Hypoglycemia Protocol Dextrose (Glutose 15) 15 gm PO ONCE PRN; Protocol PRN Reason: Hypoglycemia Protocol Last Admin: 08/19/17 08:20 Dose: 15 gm Diphenhydramine HCl (Benadryl) 25 mg IVP Q3 PRN PRN Reason: for itching Last Admin: 08/28/17 12:28 Dose: 25 mg Diphenhydramine HCl (Benadryl) 25 mg IM Q3H PRN PRN Reason: Itching / Pruritus Last Admin: 08/19/17 21:50 Dose: 25 mg Docusate Sodium (Colace) 100 mg PO TID [facility] Last Admin: 08/28/17 14:05 Dose: 100 mg Ergocalciferol (Drisdol 50,000 Intl Units Cap) 1 cap PO Q7D [facility] Last Admin: 08/24/17 12:19 Dose: Not Given Ergocalciferol (Drisdol 50,000 Intl Units Cap) 1 cap PO Q7D [facility] Last Admin: 08/23/17 12:55 Dose: 1 cap Gabapentin (Neurontin) 300 mg PO DAILY [facility] Last Admin: 08/28/17 09:31 Dose: 300 mg Glucagon (Glucagen Diagnostic Kit) 1 mg IM STAT PRN; Protocol PRN Reason: Hypoglycemia Protocol Hydralazine HCl (Apresoline) 25 mg PO QID [facility] Last Admin: 08/28/17 14:05 Dose: 25 mg Hydromorphone HCl (Dilaudid) 2 mg IVP Q3 PRN PRN Reason: Pain, severe (8-10) Last Admin: 08/28/17 12:28 Dose: 2 mg Vancomycin HCl 500 mg/ Sodium (Chloride) 100 mls @ 100 mls/hr IVPB MWF [facility] PRN Reason: Protocol Last Admin: 08/27/17 15:01 Dose: 100 mls/hr Insulin Detemir (Levemir) 12 unit SC Q12 [facility] Last Admin: 08/28/17 09:32 Dose: 12 unit Insulin Human Regular (Novolin R) 0 unit SC ACHS [facility] PRN Reason: Protocol Last Admin: 08/28/17 12:33 Dose: 2 unit Metoclopramide HCl (Reglan) 10 mg IVP DAILY PRN PRN Reason: Nausea/Vomiting Nifedipine (Procardia Xl) 30 mg PO DAILY [facility] Last Admin: 08/28/17 09:32 Dose: 30 mg Pantoprazole Sodium (Protonix Ec Tab) 40 mg PO DAILY [facility] Last Admin: 08/28/17 09:31 Dose: 40 mg Vitamin B Complex/Vit C/Folic Acid (Nephro-Vamshi) 1 tab PO 0800 [facility] Last Admin: 08/28/17 08:42 Dose: 1 tab - Labs Labs: 08/24/17 07:14 08/24/17 07:14 PT 12.2 SECONDS (9.7-12.2) 08/23/17 06:59 INR 1.1 08/23/17 06:59 APTT 32 SECONDS (21-34) 08/23/17 06:59 Assessment and Plan - Assessment and Plan (Free Text) Assessment: ESRD O N HD M W F AND SAT C/O CURRENT CARE
--- NOTE | 2017-08-28 14:34 | CP.PCM.PN ---
Subjective - Date & Time of Evaluation Date of Evaluation: 08/28/17 Time of Evaluation: 14:30 - Subjective Subjective: Podiatry Progress Note - Dr. Noble 31 year old female patient seen and evaluated at bedside 6 days s/p left hallux nail matrixectomy, and painful 3rd digits b/l 1 month s/p 3rd digit total nail avulsions. No acute events overnight. Patient still lethargic today, falling asleep during interview. Patient reports her 3rd digit b/l are swollen as well. Dressings to her 3rd digit b/l are not present. Patient reports that the dressing fell off. Patient reports the same pain to her 3rd digits. Denies N/V/F /D/C. Objective - Vital Signs/Intake and Output Vital Signs (last 24 hours): Temp Pulse Resp BP Pulse Ox 97.4 F L 88 20 148/89 90 L 08/28/17 07:30 08/28/17 14:06 08/28/17 07:30 08/28/17 14:06 08/28/17 07:30 - Medications Medications: Current Medications Benzocaine/Menthol (Cepacol Sore Throat) 1 esthela MT BID PRN PRN Reason: Sore Throat Last Admin: 08/26/17 12:00 Dose: 1 esthela Calcium Acetate (Phoslo) 1,334 mg PO TIDCC [facility] Last Admin: 08/28/17 12:32 Dose: 1,334 mg Clonidine HCl (Catapres) 0.3 mg PO BID [facility] Last Admin: 08/28/17 09:31 Dose: 0.3 mg Dextrose (Dextrose 50% Inj) 0 ml IV STAT PRN; Protocol PRN Reason: Hypoglycemia Protocol Dextrose (Glutose 15) 15 gm PO ONCE PRN; Protocol PRN Reason: Hypoglycemia Protocol Last Admin: 08/19/17 08:20 Dose: 15 gm Diphenhydramine HCl (Benadryl) 25 mg IVP Q3 PRN PRN Reason: for itching Last Admin: 08/28/17 12:28 Dose: 25 mg Diphenhydramine HCl (Benadryl) 25 mg IM Q3H PRN PRN Reason: Itching / Pruritus Last Admin: 08/19/17 21:50 Dose: 25 mg Docusate Sodium (Colace) 100 mg PO TID [facility] Last Admin: 08/28/17 14:05 Dose: 100 mg Ergocalciferol (Drisdol 50,000 Intl Units Cap) 1 cap PO Q7D [facility] Last Admin: 08/24/17 12:19 Dose: Not Given Ergocalciferol (Drisdol 50,000 Intl Units Cap) 1 cap PO Q7D [facility] Last Admin: 08/23/17 12:55 Dose: 1 cap Gabapentin (Neurontin) 300 mg PO DAILY [facility] Last Admin: 08/28/17 09:31 Dose: 300 mg Glucagon (Glucagen Diagnostic Kit) 1 mg IM STAT PRN; Protocol PRN Reason: Hypoglycemia Protocol Hydralazine HCl (Apresoline) 25 mg PO QID [facility] Last Admin: 08/28/17 14:05 Dose: 25 mg Hydromorphone HCl (Dilaudid) 2 mg IVP Q3 PRN PRN Reason: Pain, severe (8-10) Last Admin: 08/28/17 12:28 Dose: 2 mg Vancomycin HCl 500 mg/ Sodium (Chloride) 100 mls @ 100 mls/hr IVPB MWF [facility] PRN Reason: Protocol Last Admin: 08/27/17 15:01 Dose: 100 mls/hr Insulin Detemir (Levemir) 12 unit SC Q12 [facility] Last Admin: 08/28/17 09:32 Dose: 12 unit Insulin Human Regular (Novolin R) 0 unit SC ACHS [facility] PRN Reason: Protocol Last Admin: 08/28/17 12:33 Dose: 2 unit Metoclopramide HCl (Reglan) 10 mg IVP DAILY PRN PRN Reason: Nausea/Vomiting Nifedipine (Procardia Xl) 30 mg PO DAILY [facility] Last Admin: 08/28/17 09:32 Dose: 30 mg Pantoprazole Sodium (Protonix Ec Tab) 40 mg PO DAILY [facility] Last Admin: 08/28/17 09:31 Dose: 40 mg Vitamin B Complex/Vit C/Folic Acid (Nephro-Vamshi) 1 tab PO 0800 [facility] Last Admin: 08/28/17 08:42 Dose: 1 tab - Labs Labs: 08/24/17 07:14 08/24/17 07:14 PT 12.2 SECONDS (9.7-12.2) 08/23/17 06:59 INR 1.1 08/23/17 06:59 APTT 32 SECONDS (21-34) 08/23/17 06:59 - Constitutional Appears: Well, Non-toxic, No Acute Distress - Extremities Exam Additional comments: Bilateral lower extremity exam VASC: DP and PT pulses palpable 2/4 bilaterally, [employer] less than 3 seconds to all digits bilaterally, mild localized non-pitting edema noted to the 3rd digits bilaterally ORTHO: tenderness noted to the 3rd digit nail beds B/L. NEURO: gross sensation intact DERM: Left: Small open wound noted to Left 3rd digit distal aspect at the site of nail avulsion measuring 0.3cm x 0.3cm x 0.2cm with mild erythema around the site of nail avulsion. No Probe to bone. No drainage is noted. No malodor is noted. No sign of acute infection is noted. Left hallux with sutures intact and no dehiscence; no clinical signs of infection. Right:No open wound is noted to the right 3rd digit. No drainage is noted. Mild erythema is noted to the right 3rd digit. No sign of acute infection is noted. No malodor is noted. - Neurological Exam Neurological Exam: Alert, Awake, Oriented x3 - Psychiatric Exam Psychiatric exam: Normal Affect, Normal Mood Assessment and Plan - Assessment and Plan (Free Text) Assessment: 31 y/o female seen at bedside 6 days s/p left hallux nail matrixectomy, and 1 month s/p bilateral 3rd digit nail avulsions with delayed healing Plan: Patient seen and evaluated Discussed plan in detail with attending, Dr. Noble Vitals, labs, charts reviewed- afebrile currently, glucose 94 Continue IV abx - Vancomycin 500mg Pain control per medicine Peroxide cleanse + DSD applied to 3rd digit bilateral and hallux. Patient instructed to continue with IV vanco for outpatient therapy as per Dr. Noble with dialysis Podiatry will continue to follow while in house
[2017-08-29] MEDS: DiphenhydrAMINE 50 mg/ml Inj IVP PRN ×7 (01:35→21:14)
[2017-08-29 07:34] LABS: BASO # 0.1 K/uL (0.0-0.2); EOS # 1.3 K/uL (0.0-0.7); EOS % 21.1 % (0.0-4.0); HEMOGLOBIN 8.5 g/dL (11.0-16.0); LYMPH # 1.7 K/uL (1.0-4.3); MEAN CELL VOLUME 95.5 fL (81.0-99.0); MEAN CORPUSCULAR HEMOGLOBIN 31.8 pg (27.0-31.0); MEAN CORPUSCULAR HGB CONC 33.3 g/dL (33.0-37.0); MEAN PLATELET VOLUME 7.9 fL (7.2-11.7); MONO # 0.4 K/uL (0.0-0.8); MONO % 5.7 % (0.0-10.0); NEUT # 2.9 K/uL (1.8-7.0); NEUT % 45.2 % (50.0-75.0); NRBC % 0.1 % (0.0-2.0); PLATELET COUNT 327 K/uL (130-400); RBC 2.67 Mil/uL (3.80-5.20); RED CELL DISTRIBUTION WIDTH 16.2 % (11.5-14.5); WHITE BLOOD COUNT 6.4 K/uL (4.8-10.8)
[2017-08-29] MEDS: (Novolin R) Insulin Human Regular 100 units/ml vial SC SCH ×3 (07:40→16:30)
[2017-08-29] MEDS: Multivitamin Vitamin B Complex (Nephro-Vite) Tab PO SCH (08:04)
[2017-08-29 08:11] LABS: ALB/GLOB RATIO 1.1 (1.0-2.1); ALBUMIN 3.8 g/dL (3.5-5.0); CALCIUM 7.6 mg/dl (8.6-10.4); MAGNESIUM 2.3 mg/dL (1.6-2.3)
[2017-08-29] MEDS: Pantoprazole 40 mg EC Tab PO SCH (10:00)
[2017-08-29] MEDS: NIFEdipine 30 mg ER Tab PO SCH (10:00)
[2017-08-29] MEDS: Insulin Detemir 100 units/ml Vial (Levemir) SC SCH ×2 (10:00→21:14)
[2017-08-29 10:34] LABS: BASOPHIL 3 % (0-2); EOSINOPHIL 26 % (0-4); LYMPHOCYTE 26 % (20-40); MONOCYTE 6 % (0-10); NEUTROPHIL 39 % (50-75); TOTAL CELLS COUNTED 100
[2017-08-29 10:35] LABS: PLATELET ESTIMATE NORMAL (NORMAL)
[2017-08-29 10:36] LABS: ANISOCYTOSIS SLIGHT
--- NOTE | 2017-08-29 12:30 | CP.PCM.PN ---
Subjective - Date & Time of Evaluation Date of Evaluation: 08/29/17 Time of Evaluation: 12:30 Objective - Vital Signs/Intake and Output Vital Signs (last 24 hours): Temp Pulse Resp BP Pulse Ox 97.2 F L 103 H 20 193/111 H 97 08/29/17 07:20 08/29/17 07:20 08/29/17 07:20 08/29/17 07:20 08/29/17 07:20 - Medications Medications: Current Medications Benzocaine/Menthol (Cepacol Sore Throat) 1 esthela MT BID PRN PRN Reason: Sore Throat Last Admin: 08/26/17 12:00 Dose: 1 esthela Calcium Acetate (Phoslo) 1,334 mg PO TIDCC [facility] Last Admin: 08/29/17 08:04 Dose: 1,334 mg Clonidine HCl (Catapres) 0.3 mg PO BID [facility] Last Admin: 08/28/17 18:09 Dose: 0.3 mg Dextrose (Dextrose 50% Inj) 0 ml IV STAT PRN; Protocol PRN Reason: Hypoglycemia Protocol Dextrose (Glutose 15) 15 gm PO ONCE PRN; Protocol PRN Reason: Hypoglycemia Protocol Last Admin: 08/19/17 08:20 Dose: 15 gm Diphenhydramine HCl (Benadryl) 25 mg IVP Q3 PRN PRN Reason: for itching Last Admin: 08/29/17 11:22 Dose: 25 mg Diphenhydramine HCl (Benadryl) 25 mg IM Q3H PRN PRN Reason: Itching / Pruritus Last Admin: 08/19/17 21:50 Dose: 25 mg Docusate Sodium (Colace) 100 mg PO TID [facility] Last Admin: 08/28/17 18:09 Dose: 100 mg Ergocalciferol (Drisdol 50,000 Intl Units Cap) 1 cap PO Q7D [facility] Last Admin: 08/23/17 12:55 Dose: 1 cap Gabapentin (Neurontin) 300 mg PO DAILY [facility] Last Admin: 08/28/17 09:31 Dose: 300 mg Glucagon (Glucagen Diagnostic Kit) 1 mg IM STAT PRN; Protocol PRN Reason: Hypoglycemia Protocol Hydralazine HCl (Apresoline) 25 mg PO QID [facility] Last Admin: 08/28/17 22:02 Dose: 25 mg Hydromorphone HCl (Dilaudid) 2 mg IVP Q3 PRN PRN Reason: Pain, severe (8-10) Last Admin: 08/29/17 11:22 Dose: 2 mg Vancomycin HCl 500 mg/ Sodium (Chloride) 100 mls @ 100 mls/hr IVPB MWF [facility] PRN Reason: Protocol Last Admin: 08/29/17 08:04 Dose: 100 mls/hr Insulin Detemir (Levemir) 12 unit SC Q12 [facility] Last Admin: 08/28/17 22:02 Dose: 12 unit Insulin Human Regular (Novolin R) 0 unit SC ACHS [facility] PRN Reason: Protocol Last Admin: 08/29/17 07:40 Dose: Not Given Metoclopramide HCl (Reglan) 10 mg IVP DAILY PRN PRN Reason: Nausea/Vomiting Nifedipine (Procardia Xl) 30 mg PO DAILY [facility] Last Admin: 08/28/17 09:32 Dose: 30 mg Pantoprazole Sodium (Protonix Ec Tab) 40 mg PO DAILY [facility] Last Admin: 08/28/17 09:31 Dose: 40 mg Vitamin B Complex/Vit C/Folic Acid (Nephro-Vamshi) 1 tab PO 0800 [facility] Last Admin: 08/29/17 08:04 Dose: 1 tab - Labs Labs: 08/29/17 07:12 08/29/17 07:12 PT 12.2 SECONDS (9.7-12.2) 08/23/17 06:59 INR 1.1 08/23/17 06:59 APTT 32 SECONDS (21-34) 08/23/17 06:59
--- NOTE | 2017-08-29 15:15 | CT ---
PROCEDURE: CT right shoulder HISTORY: RIGHT SHOULDER PAIN COMPARISON: CT left shoulder 08/27/2017 TECHNIQUE: 2.5 mm contiguous axial sections were acquired through the right shoulder without intravenous contrast administration. Sagittal and coronal images were reformatted from the axial scan. Total exam DLP: 428.03 mGy-cm This CT exam was performed using 1 or more of the following dose reduction techniques: Automated exposure control, adjustment of the mA and/or kV according to patient size, and/or use of iterative reconstruction technique. FINDINGS: There is no acute fracture. There is questionable juxta-articular erosion of the humeral head best seen on series 2, image 38-41 and on series 602, image 88 through 90. This is fairly symmetric in appearance to the examination of the left shoulder of 2 days previous. Differential diagnosis includes an anatomic variant or juxta-articular erosion of gout. Please correlate with serum uric acid. There is no articular erosion at the glenohumeral joint. There is subtle cortical irregularity of the distal clavicle of questionable significance. This is similar in appearance to the left shoulder. There is no soft tissue abnormality seen about the right shoulder. There are several right axillary lymph nodes, unremarkable in appearance. There is a right subclavian central venous infusion port in the right anterior chest wall. There are healing fractures of the right 7th and 8th ribs laterally. There is no soft tissue abnormality appreciated. There are several unremarkable right axillary lymph nodes. IMPRESSION: No evidence of infectious arthritis. Questionable anatomic variant of the proximal right humerus versus juxta-articular erosion of gouty arthritis. Please correlate with serum urate. Please note that this is symmetric in appearance to the left proximal humerus. Incidental healing fractures of the right 7th and 8th ribs.
[2017-08-29] MEDS ORDERED: DiphenhydrAMINE 50 mg/ml Inj IM ONE (15:52)
[2017-08-29] MEDS ORDERED: DiphenhydrAMINE 50 mg/ml Inj IVP ONE (15:55)
--- NOTE | 2017-08-29 23:58 | CP.PCM.PN ---
Subjective - Date & Time of Evaluation Date of Evaluation: 08/29/17 Time of Evaluation: 15:00 - Subjective Subjective: SEEN ON RENAL F/U SEEN ON HD FEELS BETTER ALL PREVIUS EMR REVIEWED Objective - Vital Signs/Intake and Output Vital Signs (last 24 hours): Temp Pulse Resp BP Pulse Ox 98 F 111 H 18 162/96 H 100 08/29/17 16:25 08/29/17 16:25 08/29/17 16:25 08/29/17 16:25 08/29/17 16:25 - Medications Medications: Current Medications Benzocaine/Menthol (Cepacol Sore Throat) 1 esthela MT BID PRN PRN Reason: Sore Throat Last Admin: 08/26/17 12:00 Dose: 1 esthela Calcium Acetate (Phoslo) 1,334 mg PO TIDCC [facility] Last Admin: 08/29/17 18:00 Dose: 1,334 mg Clonidine HCl (Catapres) 0.3 mg PO BID [facility] Last Admin: 08/29/17 18:02 Dose: 0.3 mg Dextrose (Dextrose 50% Inj) 0 ml IV STAT PRN; Protocol PRN Reason: Hypoglycemia Protocol Dextrose (Glutose 15) 15 gm PO ONCE PRN; Protocol PRN Reason: Hypoglycemia Protocol Last Admin: 08/19/17 08:20 Dose: 15 gm Diphenhydramine HCl (Benadryl) 25 mg IVP Q3 PRN PRN Reason: for itching Last Admin: 08/29/17 21:14 Dose: 25 mg Diphenhydramine HCl (Benadryl) 25 mg IM Q3H PRN PRN Reason: Itching / Pruritus Last Admin: 08/19/17 21:50 Dose: 25 mg Docusate Sodium (Colace) 100 mg PO TID [facility] Last Admin: 08/29/17 18:02 Dose: 100 mg Ergocalciferol (Drisdol 50,000 Intl Units Cap) 1 cap PO Q7D [facility] Last Admin: 08/23/17 12:55 Dose: 1 cap Gabapentin (Neurontin) 300 mg PO DAILY [facility] Last Admin: 08/29/17 10:00 Dose: Not Given Glucagon (Glucagen Diagnostic Kit) 1 mg IM STAT PRN; Protocol PRN Reason: Hypoglycemia Protocol Heparin Sodium (Porcine) (Heparin Lock Flush) 300 units IVF ONCE ONE Stop: 08/30/17 08:46 Hydralazine HCl (Apresoline) 25 mg PO QID [facility] Last Admin: 08/29/17 21:13 Dose: 25 mg Hydromorphone HCl (Dilaudid) 2 mg IVP Q3 PRN PRN Reason: Pain, severe (8-10) Last Admin: 08/29/17 21:14 Dose: 2 mg Vancomycin HCl 500 mg/ Sodium (Chloride) 100 mls @ 100 mls/hr IVPB MWF [facility] PRN Reason: Protocol Last Admin: 08/29/17 08:04 Dose: 100 mls/hr Insulin Detemir (Levemir) 12 unit SC Q12 [facility] Last Admin: 08/29/17 21:14 Dose: 12 unit Insulin Human Regular (Novolin R) 0 unit SC ACHS [facility] PRN Reason: Protocol Last Admin: 08/29/17 16:30 Dose: Not Given Metoclopramide HCl (Reglan) 10 mg IVP DAILY PRN PRN Reason: Nausea/Vomiting Nifedipine (Procardia Xl) 30 mg PO DAILY [facility] Last Admin: 08/29/17 10:00 Dose: Not Given Pantoprazole Sodium (Protonix Ec Tab) 40 mg PO DAILY [facility] Last Admin: 08/29/17 10:00 Dose: Not Given Vitamin B Complex/Vit C/Folic Acid (Nephro-Vamshi) 1 tab PO 0800 [facility] Last Admin: 08/29/17 08:04 Dose: 1 tab - Labs Labs: 08/29/17 07:12 08/29/17 07:12 PT 12.2 SECONDS (9.7-12.2) 08/23/17 06:59 INR 1.1 08/23/17 06:59 APTT 32 SECONDS (21-34) 08/23/17 06:59 Assessment and Plan - Assessment and Plan (Free Text) Assessment: ESRD ON HD M W F AND SAT ANEMIA OF CKD ON EPO AND VENOFER SEPSIS ON IVAB C/O CURRENT CARE
[2017-08-30] MEDS: DiphenhydrAMINE 50 mg/ml Inj IVP PRN ×7 (00:13→19:12)
[2017-08-30] MEDS: (Novolin R) Insulin Human Regular 100 units/ml vial SC SCH ×3 (08:12→17:52)
[2017-08-30] MEDS: Multivitamin Vitamin B Complex (Nephro-Vite) Tab PO SCH (08:47)
[2017-08-30] MEDS: NIFEdipine 30 mg ER Tab PO SCH (09:27)
[2017-08-30] MEDS: Pantoprazole 40 mg EC Tab PO SCH (09:33)
[2017-08-30] MEDS: Insulin Detemir 100 units/ml Vial (Levemir) SC SCH (09:33)
[2017-08-30] MEDS: Ergocalciferol 50,000 Intl Units Cap PO SCH (13:07)
--- NOTE | 2017-08-30 13:33 | CP.PCM.PN ---
Subjective - Date & Time of Evaluation Date of Evaluation: 08/30/17 Time of Evaluation: 13:31 - Subjective Subjective: Podiatry Progress Note - Dr. Noble 31 year old female patient seen and evaluated at bedside 8 days s/p left hallux nail matrixectomy, and painful 3rd digits b/l 6 weeks s/p 3rd digit total nail avulsions. No acute events overnight. Patient still lethargic today, falling asleep during interview. Patient reports the same pain to her 3rd digits. Denies N/V/F/D/C. Objective - Vital Signs/Intake and Output Vital Signs (last 24 hours): Temp Pulse Resp BP Pulse Ox 97.9 F 91 H 20 207/101 H 99 08/30/17 00:40 08/30/17 00:40 08/30/17 00:40 08/30/17 00:40 08/30/17 00:40 Intake and Output: 08/30/17 08/30/17 06:59 18:59 Intake Total 200 Balance 200 - Medications Medications: Current Medications Benzocaine/Menthol (Cepacol Sore Throat) 1 esthela MT BID PRN PRN Reason: Sore Throat Last Admin: 08/26/17 12:00 Dose: 1 esthela Calcium Acetate (Phoslo) 1,334 mg PO TIDCC [facility] Last Admin: 08/30/17 13:09 Dose: Not Given Clonidine HCl (Catapres) 0.3 mg PO BID [facility] Last Admin: 08/30/17 09:27 Dose: 0.3 mg Dextrose (Dextrose 50% Inj) 0 ml IV STAT PRN; Protocol PRN Reason: Hypoglycemia Protocol Dextrose (Glutose 15) 15 gm PO ONCE PRN; Protocol PRN Reason: Hypoglycemia Protocol Last Admin: 08/19/17 08:20 Dose: 15 gm Diphenhydramine HCl (Benadryl) 25 mg IVP Q3 PRN PRN Reason: for itching Last Admin: 08/30/17 13:05 Dose: 25 mg Diphenhydramine HCl (Benadryl) 25 mg IM Q3H PRN PRN Reason: Itching / Pruritus Last Admin: 08/19/17 21:50 Dose: 25 mg Docusate Sodium (Colace) 100 mg PO TID [facility] Last Admin: 08/30/17 13:08 Dose: 100 mg Ergocalciferol (Drisdol 50,000 Intl Units Cap) 1 cap PO Q7D [facility] Last Admin: 08/30/17 13:07 Dose: 1 cap Gabapentin (Neurontin) 300 mg PO DAILY [facility] Last Admin: 08/30/17 09:33 Dose: 300 mg Glucagon (Glucagen Diagnostic Kit) 1 mg IM STAT PRN; Protocol PRN Reason: Hypoglycemia Protocol Hydralazine HCl (Apresoline) 25 mg PO QID [facility] Last Admin: 08/30/17 09:26 Dose: 25 mg Hydromorphone HCl (Dilaudid) 2 mg IVP Q3 PRN PRN Reason: Pain, severe (8-10) Last Admin: 08/30/17 13:05 Dose: 2 mg Vancomycin HCl 500 mg/ Sodium (Chloride) 100 mls @ 100 mls/hr IVPB MWF [facility] PRN Reason: Protocol Last Admin: 08/29/17 08:04 Dose: 100 mls/hr Insulin Detemir (Levemir) 12 unit SC Q12 [facility] Last Admin: 08/30/17 09:33 Dose: 12 unit Insulin Human Regular (Novolin R) 0 unit SC ACHS [facility] PRN Reason: Protocol Last Admin: 08/30/17 13:09 Dose: 4 unit Metoclopramide HCl (Reglan) 10 mg IVP DAILY PRN PRN Reason: Nausea/Vomiting Last Admin: 08/30/17 09:32 Dose: 10 mg Nifedipine (Procardia Xl) 30 mg PO DAILY [facility] Last Admin: 08/30/17 09:27 Dose: 30 mg Pantoprazole Sodium (Protonix Ec Tab) 40 mg PO DAILY [facility] Last Admin: 08/30/17 09:33 Dose: 40 mg Vitamin B Complex/Vit C/Folic Acid (Nephro-Vamshi) 1 tab PO 0800 [facility] Last Admin: 08/30/17 08:47 Dose: 1 tab - Labs Labs: 08/29/17 07:12 08/29/17 07:12 PT 12.2 SECONDS (9.7-12.2) 08/23/17 06:59 INR 1.1 08/23/17 06:59 APTT 32 SECONDS (21-34) 08/23/17 06:59 - Constitutional Appears: Well, Non-toxic, No Acute Distress - Extremities Exam Additional comments: dressings to bilateral feet remain c/d/i cft < 4 sec to all digits able to wiggle toes no ascending cellulitis Assessment and Plan - Assessment and Plan (Free Text) Assessment: 31 y/o female seen at bedside 8 days s/p left hallux nail matrixectomy, and 6 weeks s/p bilateral 3rd digit nail avulsions with delayed healing Plan: patient evaluated and chart reviewed discussed in detail with attending Dr. Noble labs and vitals reviewed; afebrile dressings to bilateral feet remain c/d/i patient stable from podiatry standpoint Patient instructed to continue with IV vanco for outpatient therapy as per Dr. Noble with dialysis
--- NOTE | 2017-08-30 16:12 | CP.PCM.PN ---
Subjective - Date & Time of Evaluation Date of Evaluation: 08/30/17 Time of Evaluation: 16:12 - Subjective Subjective: PT CLEARED FOR D/C HOME PER ATTENDING. RX FOR IV ABX FOR 6 WEEKS ALREADY GIVEN TO SW FOR IV ABX AT HD. HAD A VERY LENGTHY DISCUSSION WITH PT AND HER CHRONIC PAIN MANAGEMENT ISSUES. DISCUSSED CONCERNS OF OVERUSE OF ACUTE CARE FOR CHRONIC PAIN AND LIKELY TOLERANCE ?ABUSE OF NARCOTICS. PT STRONGLY RECOMMENDED TO CONTACT INSURANCE COMPANY FOR PAIN MANAGEMENT SPECIALISTS IN THE AREA. PT ADMITS THAT SHE WILL CALL THEM TOMORROW TO REQUEST INFORMATION. VERBALIZES UNDERSTANDING OF ALL D/C INFORMATION, F/U VISITS, AND RX. NO FURTHER ORDERS. Objective - Vital Signs/Intake and Output Vital Signs (last 24 hours): Temp Pulse Resp BP Pulse Ox 97.9 F 91 H 20 207/101 H 99 08/30/17 00:40 08/30/17 00:40 08/30/17 00:40 08/30/17 00:40 08/30/17 00:40 Intake and Output: 08/30/17 08/30/17 06:59 18:59 Intake Total 200 Balance 200 - Medications Medications: Current Medications Benzocaine/Menthol (Cepacol Sore Throat) 1 esthela MT BID PRN PRN Reason: Sore Throat Last Admin: 08/26/17 12:00 Dose: 1 esthela Calcium Acetate (Phoslo) 1,334 mg PO TIDCC [facility] Last Admin: 08/30/17 13:09 Dose: Not Given Clonidine HCl (Catapres) 0.3 mg PO BID [facility] Last Admin: 08/30/17 09:27 Dose: 0.3 mg Dextrose (Dextrose 50% Inj) 0 ml IV STAT PRN; Protocol PRN Reason: Hypoglycemia Protocol Dextrose (Glutose 15) 15 gm PO ONCE PRN; Protocol PRN Reason: Hypoglycemia Protocol Last Admin: 08/19/17 08:20 Dose: 15 gm Diphenhydramine HCl (Benadryl) 25 mg IVP Q3 PRN PRN Reason: for itching Last Admin: 08/30/17 13:05 Dose: 25 mg Docusate Sodium (Colace) 100 mg PO TID [facility] Last Admin: 08/30/17 13:08 Dose: 100 mg Ergocalciferol (Drisdol 50,000 Intl Units Cap) 1 cap PO Q7D [facility] Last Admin: 08/30/17 13:07 Dose: 1 cap Gabapentin (Neurontin) 300 mg PO DAILY [facility] Last Admin: 08/30/17 09:33 Dose: 300 mg Glucagon (Glucagen Diagnostic Kit) 1 mg IM STAT PRN; Protocol PRN Reason: Hypoglycemia Protocol Hydralazine HCl (Apresoline) 25 mg PO QID [facility] Last Admin: 08/30/17 13:39 Dose: 25 mg Hydromorphone HCl (Dilaudid) 3 mg IVP Q3 PRN PRN Reason: Pain, severe (8-10) Vancomycin HCl 500 mg/ Sodium (Chloride) 100 mls @ 100 mls/hr IVPB MWF [facility] PRN Reason: Protocol Last Admin: 08/29/17 08:04 Dose: 100 mls/hr Insulin Detemir (Levemir) 12 unit SC Q12 [facility] Last Admin: 08/30/17 09:33 Dose: 12 unit Insulin Human Regular (Novolin R) 0 unit SC ACHS [facility] PRN Reason: Protocol Last Admin: 08/30/17 13:09 Dose: 4 unit Metoclopramide HCl (Reglan) 10 mg IVP DAILY PRN PRN Reason: Nausea/Vomiting Last Admin: 08/30/17 09:32 Dose: 10 mg Nifedipine (Procardia Xl) 30 mg PO DAILY [facility] Last Admin: 08/30/17 09:27 Dose: 30 mg Pantoprazole Sodium (Protonix Ec Tab) 40 mg PO DAILY [facility] Last Admin: 08/30/17 09:33 Dose: 40 mg Vitamin B Complex/Vit C/Folic Acid (Nephro-Vamshi) 1 tab PO 0800 [facility] Last Admin: 08/30/17 08:47 Dose: 1 tab - Labs Labs: 08/29/17 07:12 08/29/17 07:12 PT 12.2 SECONDS (9.7-12.2) 08/23/17 06:59 INR 1.1 08/23/17 06:59 APTT 32 SECONDS (21-34) 08/23/17 06:59
[2017-08-30 16:43] VITALS: BP 187/99; PULSE 92; RESP 18; TEMP 97.8; O2SAT 100
--- NOTE | 2017-08-30 18:13 | CP.PCM.PN ---
Subjective - Date & Time of Evaluation Date of Evaluation: 08/30/17 Time of Evaluation: 15:00 - Subjective Subjective: SEEN ON RENAL F/U ON HD MM W F AND SAT FEELS IMPROVED Objective - Vital Signs/Intake and Output Vital Signs (last 24 hours): Temp Pulse Resp BP Pulse Ox 97.8 F 92 H 18 187/99 H 100 08/30/17 16:00 08/30/17 16:00 08/30/17 16:00 08/30/17 16:00 08/30/17 16:00 Intake and Output: 08/30/17 08/30/17 06:59 18:59 Intake Total 200 820 Balance 200 820 - Medications Medications: Current Medications Benzocaine/Menthol (Cepacol Sore Throat) 1 esthela MT BID PRN PRN Reason: Sore Throat Last Admin: 08/26/17 12:00 Dose: 1 esthela Calcium Acetate (Phoslo) 1,334 mg PO TIDCC [facility] Last Admin: 08/30/17 17:22 Dose: 1,334 mg Clonidine HCl (Catapres) 0.3 mg PO BID [facility] Last Admin: 08/30/17 17:22 Dose: 0.3 mg Dextrose (Dextrose 50% Inj) 0 ml IV STAT PRN; Protocol PRN Reason: Hypoglycemia Protocol Dextrose (Glutose 15) 15 gm PO ONCE PRN; Protocol PRN Reason: Hypoglycemia Protocol Last Admin: 08/19/17 08:20 Dose: 15 gm Diphenhydramine HCl (Benadryl) 25 mg IVP Q3 PRN PRN Reason: for itching Last Admin: 08/30/17 16:17 Dose: 25 mg Docusate Sodium (Colace) 100 mg PO TID [facility] Last Admin: 08/30/17 17:22 Dose: 100 mg Ergocalciferol (Drisdol 50,000 Intl Units Cap) 1 cap PO Q7D [facility] Last Admin: 08/30/17 13:07 Dose: 1 cap Gabapentin (Neurontin) 300 mg PO DAILY [facility] Last Admin: 08/30/17 09:33 Dose: 300 mg Glucagon (Glucagen Diagnostic Kit) 1 mg IM STAT PRN; Protocol PRN Reason: Hypoglycemia Protocol Heparin Sodium (Porcine) (Heparin Lock Flush) 300 units IVF ONCE ONE Stop: 08/30/17 19:01 Hydralazine HCl (Apresoline) 25 mg PO QID [facility] Last Admin: 08/30/17 17:22 Dose: 25 mg Hydromorphone HCl (Dilaudid) 3 mg IVP Q3 PRN PRN Reason: Pain, severe (8-10) Last Admin: 08/30/17 16:18 Dose: 3 mg Vancomycin HCl 500 mg/ Sodium (Chloride) 100 mls @ 100 mls/hr IVPB MWF [facility] PRN Reason: Protocol Last Admin: 08/29/17 08:04 Dose: 100 mls/hr Insulin Detemir (Levemir) 12 unit SC Q12 [facility] Last Admin: 08/30/17 09:33 Dose: 12 unit Insulin Human Regular (Novolin R) 0 unit SC ACHS [facility] PRN Reason: Protocol Last Admin: 08/30/17 17:52 Dose: Not Given Metoclopramide HCl (Reglan) 10 mg IVP DAILY PRN PRN Reason: Nausea/Vomiting Last Admin: 08/30/17 09:32 Dose: 10 mg Nifedipine (Procardia Xl) 30 mg PO DAILY [facility] Last Admin: 08/30/17 09:27 Dose: 30 mg Pantoprazole Sodium (Protonix Ec Tab) 40 mg PO DAILY [facility] Last Admin: 08/30/17 09:33 Dose: 40 mg Vitamin B Complex/Vit C/Folic Acid (Nephro-Vamshi) 1 tab PO 0800 [facility] Last Admin: 08/30/17 08:47 Dose: 1 tab - Labs Labs: 08/29/17 07:12 08/29/17 07:12 PT 12.2 SECONDS (9.7-12.2) 08/23/17 06:59 INR 1.1 08/23/17 06:59 APTT 32 SECONDS (21-34) 08/23/17 06:59 Assessment and Plan - Assessment and Plan (Free Text) Assessment: C/O CURRENT CARE C/O PRESENT MANAGEMENT
--- NOTE | 2017-08-30 18:54 | CP.PCM.PN ---
Subjective - Date & Time of Evaluation Date of Evaluation: 08/30/17 Time of Evaluation: 18:54 Objective - Vital Signs/Intake and Output Vital Signs (last 24 hours): Temp Pulse Resp BP Pulse Ox 97.8 F 92 H 18 187/99 H 100 08/30/17 16:00 08/30/17 16:00 08/30/17 16:00 08/30/17 16:00 08/30/17 16:00 Intake and Output: 08/30/17 08/30/17 06:59 18:59 Intake Total 200 820 Balance 200 820 - Medications Medications: Current Medications Benzocaine/Menthol (Cepacol Sore Throat) 1 esthela MT BID PRN PRN Reason: Sore Throat Last Admin: 08/26/17 12:00 Dose: 1 esthela Calcium Acetate (Phoslo) 1,334 mg PO TIDCC [facility] Last Admin: 08/30/17 17:22 Dose: 1,334 mg Clonidine HCl (Catapres) 0.3 mg PO BID [facility] Last Admin: 08/30/17 17:22 Dose: 0.3 mg Dextrose (Dextrose 50% Inj) 0 ml IV STAT PRN; Protocol PRN Reason: Hypoglycemia Protocol Dextrose (Glutose 15) 15 gm PO ONCE PRN; Protocol PRN Reason: Hypoglycemia Protocol Last Admin: 08/19/17 08:20 Dose: 15 gm Diphenhydramine HCl (Benadryl) 25 mg IVP Q3 PRN PRN Reason: for itching Last Admin: 08/30/17 16:17 Dose: 25 mg Docusate Sodium (Colace) 100 mg PO TID [facility] Last Admin: 08/30/17 17:22 Dose: 100 mg Ergocalciferol (Drisdol 50,000 Intl Units Cap) 1 cap PO Q7D [facility] Last Admin: 08/30/17 13:07 Dose: 1 cap Gabapentin (Neurontin) 300 mg PO DAILY [facility] Last Admin: 08/30/17 09:33 Dose: 300 mg Glucagon (Glucagen Diagnostic Kit) 1 mg IM STAT PRN; Protocol PRN Reason: Hypoglycemia Protocol Heparin Sodium (Porcine) (Heparin Lock Flush) 300 units IVF ONCE ONE Stop: 08/30/17 19:01 Hydralazine HCl (Apresoline) 25 mg PO QID [facility] Last Admin: 08/30/17 17:22 Dose: 25 mg Hydromorphone HCl (Dilaudid) 3 mg IVP Q3 PRN PRN Reason: Pain, severe (8-10) Last Admin: 08/30/17 16:18 Dose: 3 mg Vancomycin HCl 500 mg/ Sodium (Chloride) 100 mls @ 100 mls/hr IVPB MWF [facility] PRN Reason: Protocol Last Admin: 08/29/17 08:04 Dose: 100 mls/hr Insulin Detemir (Levemir) 12 unit SC Q12 [facility] Last Admin: 08/30/17 09:33 Dose: 12 unit Insulin Human Regular (Novolin R) 0 unit SC ACHS [facility] PRN Reason: Protocol Last Admin: 08/30/17 17:52 Dose: Not Given Metoclopramide HCl (Reglan) 10 mg IVP DAILY PRN PRN Reason: Nausea/Vomiting Last Admin: 08/30/17 09:32 Dose: 10 mg Nifedipine (Procardia Xl) 30 mg PO DAILY [facility] Last Admin: 08/30/17 09:27 Dose: 30 mg Pantoprazole Sodium (Protonix Ec Tab) 40 mg PO DAILY [facility] Last Admin: 08/30/17 09:33 Dose: 40 mg Vitamin B Complex/Vit C/Folic Acid (Nephro-Vamshi) 1 tab PO 0800 [facility] Last Admin: 08/30/17 08:47 Dose: 1 tab - Labs Labs: 08/29/17 07:12 08/29/17 07:12 PT 12.2 SECONDS (9.7-12.2) 08/23/17 06:59 INR 1.1 08/23/17 06:59 APTT 32 SECONDS (21-34) 08/23/17 06:59
--- NOTE | 2017-08-31 07:26 | PCM.HF ---
Heart Failure Core Measure - Heart Failure Ejection Fraction: 40 % or Greater BINU Inhibitor Prescribed: No Contraindication/Reason for not providing: ESRD Beta-Allen Prescribed: None Contraindication/Reason for not providing: EF IS GREATER THAN 40 Angiotensin II Receptor Allen Prescribed: No Contraindication/Reason for not providing: ESRD AnticoagulationTherapy for Atrial Fibrillation/Atrialflutter: No Contraindication/Reason for not providing: NO HX OF AFIB Aldosterone Antagonist Prescribed: No Contraindication/Reason for not providing: EF IS GREATER THAN 40 Hydralazine Nitrate Prescribed: Yes Implantable Cardioverter Defibrillator Therapy: No Contraindication/Reason for not providing: EF IS GREATER THAN 40 Cardiac Resynchronization Therapy Prescribed: No Contraindication/Reason for not providing: EF IS GREATER THAN 40 - Follow up Will be discharged to: Home Follow Up Date (must be within 7 days from discharge): 09/04/17 Follow Up Time: 09:00
--- NOTE | 2017-09-07 00:58 | CP.PCM.DIS ---
Provider - Provider Date of Admission: 08/19/17 15:52 Attending physician: Florence Bearden MD Time Spent in preparation of Discharge (in minutes): 25 Hospital Course - Lab Results Lab Results: Micro Results 08/22/17 10:40 Foot - Left Gram Stain - Final 08/22/17 10:40 Foot - Left Wound Culture - Final Staphylococcus Aureus 08/22/17 10:39 Foot - Right Gram Stain - Final 08/22/17 10:39 Foot - Right Wound Culture - Final Staphylococcus Aureus 08/19/17 19:13 Foot - Left Gram Stain - Final 08/19/17 19:13 Foot - Left Wound Culture - Final Methicillin Resistant S Aureus Most Recent Lab Values WBC 6.4 K/uL (4.8-10.8) 08/29/17 07:12 RBC 2.67 Mil/uL (3.80-5.20) L 08/29/17 07:12 Hgb 8.5 g/dL (11.0-16.0) L 08/29/17 07:12 Hct 25.4 % (34.0-47.0) L 08/29/17 07:12 MCV 95.5 fL (81.0-99.0) 08/29/17 07:12 MCH 31.8 pg (27.0-31.0) H 08/29/17 07:12 MCHC 33.3 g/dL (33.0-37.0) 08/29/17 07:12 RDW 16.2 % (11.5-14.5) H 08/29/17 07:12 Plt Count 327 K/uL (130-400) 08/29/17 07:12 MPV 7.9 fL (7.2-11.7) 08/29/17 07:12 Neut % (Auto) 45.2 % (50.0-75.0) L 08/29/17 07:12 Lymph % (Auto) 26.0 % (20.0-40.0) 08/29/17 07:12 Duval % (Auto) 5.7 % (0.0-10.0) 08/29/17 07:12 Eos % (Auto) 21.1 % (0.0-4.0) H 08/29/17 07:12 Baso % (Auto) 2.0 % (0.0-2.0) 08/29/17 07:12 Neut # 2.9 K/uL (1.8-7.0) 08/29/17 07:12 Lymph # 1.7 K/uL (1.0-4.3) 08/29/17 07:12 Duval # 0.4 K/uL (0.0-0.8) 08/29/17 07:12 Eos # 1.3 K/uL (0.0-0.7) H 08/29/17 07:12 Baso # 0.1 K/uL (0.0-0.2) 08/29/17 07:12 Neutrophils % (Manual) 39 % (50-75) L 08/29/17 07:12 Lymphocytes % (Manual) 26 % (20-40) 08/29/17 07:12 Monocytes % (Manual) 6 % (0-10) 08/29/17 07:12 Eosinophils % (Manual) 26 % (0-4) H 08/29/17 07:12 Basophils % (Manual) 3 % (0-2) H 08/29/17 07:12 Platelet Estimate Normal (NORMAL) 08/29/17 07:12 Basophilic Stippling Slight 08/29/17 07:12 Anisocytosis (manual) Slight 08/29/17 07:12 ESR 64 mm/hr (0-20) H 08/18/17 14:31 PT 12.2 SECONDS (9.7-12.2) 08/23/17 06:59 INR 1.1 08/23/17 06:59 APTT 32 SECONDS (21-34) 08/23/17 06:59 Puncture Site Venous 08/23/17 16:15 pO2 52 mm/Hg (30-55) 08/23/17 16:15 Marcus Test N/a 08/23/17 16:15 VBG pH 7.28 (7.32-7.43) L 08/23/17 16:15 VBG pCO2 38 mmHg (40-60) L 08/23/17 16:15 VBG HCO3 18.1 mmol/L 08/23/17 16:15 VBG O2 Sat (Calc) 90.2 % (40-65) H 08/23/17 16:15 VBG Base Excess -8.2 mmol/L (0.0-2.0) L 08/23/17 16:15 Sodium 131 mmol/L (132-148) L 08/29/17 07:12 Potassium 6.0 mmol/L (3.6-5.2) H 08/29/17 07:12 Chloride 92 mmol/L (98-107) L 08/29/17 07:12 Carbon Dioxide 26 mmol/L (22-30) 08/29/17 07:12 Anion Gap 20 (10-20) 08/29/17 07:12 BUN 78 mg/dL (7-17) H 08/29/17 07:12 Creatinine 8.1 mg/dL (0.7-1.2) H* 08/29/17 07:12 Est GFR ( Amer) 7 08/29/17 07:12 Est GFR (Non-Af Amer) 6 08/29/17 07:12 POC Glucose (mg/dL) 64 mg/dL (65-110) L 08/30/17 17:30 Random Glucose 80 mg/dL (65-105) 08/29/17 07:12 Calcium 7.6 mg/dl (8.6-10.4) L 08/29/17 07:12 Phosphorus 6.7 mg/dL (2.5-4.5) H 08/29/17 07:12 Magnesium 2.3 mg/dL (1.6-2.3) 08/29/17 07:12 Total Bilirubin 0.4 mg/dL (0.2-1.3) 08/29/17 07:12 AST 27 U/L (14-36) 08/29/17 07:12 ALT 18 U/L (9-52) 08/29/17 07:12 Alkaline Phosphatase 125 U/L (38-126) 08/29/17 07:12 Total Protein 7.3 g/dL (6.3-8.3) 08/29/17 07:12 Albumin 3.8 g/dL (3.5-5.0) 08/29/17 07:12 Globulin 3.5 gm/dL (2.2-3.9) 08/29/17 07:12 Albumin/Globulin Ratio 1.1 (1.0-2.1) 08/29/17 07:12 Lipase 58 U/L (23-300) 08/16/17 17:58 Beta HCG, Quant < 2.39 mIU/ML 08/22/17 04:00 - Hospital Course Hospital Course: 31-year-old female with past medical history of sickle cell disease, end-stage renal disease who originally presented with abdominal pain and nausea vomiting. Patient was found to have foot infection with MRSA. Due to poor vein access she underwent Port-A-Cath insertion. She was followed by podiatry, infectious disease and nephrology. There was no evidence of osteomyelitis on CT. Patient was discharged to finish 3-6 weeks course of vancomycin and wound care. Discharge Exam - Head Exam Head Exam: NORMOCEPHALIC - Eye Exam Eye Exam: Normal appearance - ENT Exam ENT Exam: Mucous Membranes Moist - Respiratory Exam Respiratory Exam: Clear to PA & Lateral - Cardiovascular Exam Cardiovascular Exam: REGULAR RHYTHM - GI/Abdominal Exam GI & Abdominal Exam: Normal Bowel Sounds Discharge Plan - Discharge Medications Prescriptions: Syringe and Needle,Insulin,1Ml [Advocate Syringes] 1 each ACHS #120 disp.syrin hydrALAZINE [Apresoline] 25 mg PO QID #120 tab Sucralfate [Carafate Oral Susp] 1 gm PO QID #1200 ml cloNIDine [Catapres] 0.3 mg PO BID #60 tab Docusate [Colace] 100 mg PO TID #90 cap HYDROmorphone [Dilaudid 2 mg Tab] 2 mg PO Q4 PRN #20 tab PRN Reason: Pain, Severe (8-10) Fentanyl 50 mcg TD Q72 #5 patch.td72 Lancets 1 each ACHS #120 each Insulin Glargine, Recombina [Lantus] 25 unit SQ HS #1 vial Lidocaine 5% [Lidoderm] 1 ea TD Q12 PRN #10 patch PRN Reason: Pain, Moderate (4-7) Insulin Human Regular [Novolin R] See Protocol SC ACHS #1 vial NIFEdipine ER [Procardia XL] 30 mg PO DAILY #30 ter Metoclopramide [Reglan] 10 mg PO DAILY #30 tab Vancomycin [Vancomycin Inj] 500 mg IVPB MWF #17 vial Ondansetron ODT [Zofran ODT] 8 mg PO Q6 PRN #60 odt PRN Reason: Nausea/Vomiting - Follow Up Plan Condition: STABLE Disposition: HOME/ ROUTINE Instructions: Vancomycin (By mouth), MRSA (Methicillin Resistant Staphylococcus Aureus) (DC), Dialysis Diet (DC), Dialysis Diet (GEN), End Stage Kidney Disease (DC), Cellulitis (DC), Cellulitis (GEN), Abscess (GEN), Renal Failure Diet (DC) Additional Instructions: -follow up with dr. bearden on sunday in the office. -continue all medications as directed -picker tender helper your prescriptions tonight -you will be getting vancomycin, the antibiotic, during dialysis starting tomorrow for a total of 6 weeks. the dialysis center has all of the information. -contact your home oxygen company tomorrow morning. Referrals: Omar Guzman MD [Staff Provider] - Alexei Noble DPM [Doctor Podiatric Medicine] - Jesus Phillips MD [Staff Provider] - Tyler Jones MD [Staff Provider] - Benjamín Pinto MD [Staff Provider] - Uvaldo Escamilla MD [Staff Provider] - Kim Bearden MD [Staff Provider] -
== END 2017-08-30 19:30 | disposition home or self-care (01) | DRG 18 ==
LOC: C.ER 16:59 → UNDOADMOB 18:27 → INTOOBSV 18:27 → C.9E 18:27 → OBSVTOIN 18:27 → C.3T 23:11 → C.9E 23:11 → C.3T 08-17 15:15 → C.5S 08-17 15:15 → C.3T 08-19 15:52 → C.9E 08-19 15:52 → OBSVTOIN 08-19 15:52 → C.5S 08-19 15:52
PROVIDERS: ADMIT Internal Medicine Nephrology; ATTEND Internal Medicine Nephrology
PROC: 02HV33Z Insertion of Infusion Device into Superior Vena Cava, Percutaneous Approach (ICD-10-PCS; 2017-08-20)
PROC: 0JH60WZ Insertion of Totally Implantable Vascular Access Device into Chest Subcutaneous Tissue and Fascia, Open Approach (ICD-10-PCS; principal; 2017-08-20 18:00)
PROC: 0HTRXZZ Resection of Toe Nail, External Approach (ICD-10-PCS; 2017-08-22)
DX: E10.43 Type 1 diabetes mellitus with diabetic autonomic (poly)neuropathy (principal); I13.2 Hypertensive heart and chronic kidney disease with heart failure and with stage 5 chronic kidney disease, or end stage renal disease; E10.22 Type 1 diabetes mellitus with diabetic chronic kidney disease; L03.115 Cellulitis of right lower limb; D57.1 Sickle-cell disease without crisis; N18.6 End stage renal disease; E10.65 Type 1 diabetes mellitus with hyperglycemia; I50.9 Heart failure, unspecified; E05.90 Thyrotoxicosis, unspecified without thyrotoxic crisis or storm; F11.20 Opioid dependence, uncomplicated; E83.51 Hypocalcemia; K86.1 Other chronic pancreatitis; K31.84 Gastroparesis; I16.0 Hypertensive urgency; J45.909 Unspecified asthma, uncomplicated; L60.0 Ingrowing nail; N89.8 Other specified noninflammatory disorders of vagina; Z86.14 Personal history of Methicillin resistant Staphylococcus aureus infection; Z79.4 Long term (current) use of insulin; Z87.01 Personal history of pneumonia (recurrent); Z87.11 Personal history of peptic ulcer disease; Z87.442 Personal history of urinary calculi; Z95.5 Presence of coronary angioplasty implant and graft; Z99.2 Dependence on renal dialysis; D63.1 Anemia in chronic kidney disease; E03.9 Hypothyroidism, unspecified; E78.00 Pure hypercholesterolemia, unspecified; F32.9 Major depressive disorder, single episode, unspecified; G89.29 Other chronic pain

== ENCOUNTER 2017-09-03 15:48 | Inpatient (IN) | payer MEDICAID ==
[2017-09-03 15:49] VITALS: BMI 27.3
--- NOTE | 2017-09-03 18:09 | C.PDOC ---
History Of Present Illness 31yo female with history of sickle cell disease, gastroparesis and ESRD (on dialysis), presents to ED for evaluation of chronic abdominal pain. She reports associated nausea and vomiting. She missed dialysis today secondary to pain and vomiting. Patient is well known to ED multiple visits for similar complaints. Time Seen by Provider: 09/03/17 17:42 Chief Complaint (Nursing): Abdominal Pain History Per: Patient History/Exam Limitations: no limitations Onset/Duration Of Symptoms: Persistent Current Symptoms Are (Timing): Still Present Location Of Pain/Discomfort: Diffuse Quality Of Discomfort: "Pain" Past Medical History Reviewed: Historical Data, Nursing Documentation, Vital Signs Vital Signs: Last Vital Signs Temp 98.5 F 09/03/17 15:51 Pulse 107 H 09/03/17 15:51 Resp 18 09/03/17 15:51 BP 231/131 H 09/03/17 15:51 Pulse Ox 100 09/03/17 18:15 - Medical History PMH: Anemia, Anxiety, Asthma, Bronchitis, CHF, Diabetes, Fractures (Sep 2012 L foot), Gastritis, Gastrointestinal Ulcer (gastroparesis), Gall Bladder Disease ( gallbladder removed), Hepatitis, HTN, Hypercholesterolemia, Hyperthyroidism, Hypothyroidism, Kidney Stones, Pancreatitis (chronic), Peripheral Edema, Pneumonia, End Stage Renal Disease, Chronic Kidney Disease, Seizures, Sleep Apnea, Chronic Pain Surgical History: Cholecystectomy, Coronary Stent - [facility] Procedures (08/08/17) ASSISTANCE WITH RESPIRATORY VENTILATION, 24-96 HRS, CPAP (11/27/16) CAUTERY TO STOP EPISTAX (03/22/14) CENTRAL VENOUS CATHETER PLACEMENT WITH GUIDANCE (11/06/14) DIALYSIS ARTERIOVENOSTOM (01/10/14) DRAINAGE OF RIGHT FOOT SKIN, EXTERNAL APPROACH (07/17/16) DRAINAGE OF RIGHT LOWER ARM SKIN, EXTERNAL APPROACH (05/25/16) ESOPHAGOGASTRODUODENOSCOPY [EGD] W/CLOSED BIOPSY (03/03/14) EXCISION OF LEFT TOE PHALANX, OPEN APPROACH (07/12/17) EXCISION OF STOMACH, ENDO, DIAGN (05/09/16) EXTIRPATE MATTER FROM R LOW ARM SUBCU/FASCIA, PERC (05/25/16) EXTRACTION OF RIGHT FOOT SKIN, EXTERNAL APPROACH (05/25/16) EXTRACTION OF TOE NAIL, EXTERNAL APPROACH (07/12/17) FLEXIBLE SIGMOIDOSCOPY (10/26/14) FLUOROSCOPY OF R JUGULAR VEIN USING L OSM CONTRAST, GUIDANCE (12/13/15) FLUOROSCOPY OF RIGHT SUBCLAVIAN VEIN, GUIDANCE (08/07/16) HEMODIALYSIS (04/05/15) INJECT INSULIN (12/23/12) INJECT/INFUSE ELECTROLYT (12/23/12) INJECT/INFUSE NEC (01/17/15) INSERT INFUSION DEV IN R INT JUGULAR VEIN, PERC (02/23/16) INSERT VAD RESERVOIR IN CHEST SUBCU/FASCIA, OPEN (08/19/17) INSERTION OF INFUSION DEV INTO R BASILIC VEIN, PERC APPROACH (04/18/16) INSERTION OF INFUSION DEV INTO R BRACH VEIN, PERC APPROACH (02/19/17) INSERTION OF INFUSION DEV INTO R SUBCLAV VEIN, PERC APPROACH (08/29/16) INSERTION OF INFUSION DEV INTO SUP VENA CAVA, PERC APPROACH (08/19/17) INSERTION OF INFUSION DEVICE INTO R ATRIUM, PERC APPROACH (12/13/15) INSERTION OF VAD INTO CHEST SUBCU/FASCIA, OPEN APPROACH (12/13/15) MEASURE OF CARDIAC SAMPL & PRESSURE, L HEART, PERC APPROACH (10/09/16) OTHER ENDOSCOPY OF SM INTEST (08/25/14) PACKED CELL TRANSFUSION (10/26/14) PERFORMANCE OF URINARY FILTRATION, MULTIPLE (03/19/17) PERFORMANCE OF URINARY FILTRATION, SINGLE (11/27/16) PLAIN RADIOGRAPHY OF LEFT HEART USING OTHER CONTRAST (10/09/16) PLAIN RADIOGRAPHY OF MULT COR ART USING OTH CONTRAST (10/09/16) PLICATION OF VENA CAVA (03/22/14) POST NASAL PAC FOR EPIST (03/22/14) REMOVAL OF VAD FROM TRUNK SUBCU/FASCIA, OPEN APPROACH (02/23/16) RESECTION OF TOE NAIL, EXTERNAL APPROACH (08/19/17) [facility]T (03/03/14) THERAPEUTIC ERYTHROCYTAPHERESIS (10/26/14) TRANSFUSE NONAUT RED BLOOD CELLS IN PERIPH VEIN, PERC (02/19/17) ULTRASONOGRAPHY OF RIGHT AND LEFT HEART, TRANSESOPHAGEAL (02/19/17) ULTRASONOGRAPHY OF RIGHT SUBCLAVIAN VEIN, GUIDANCE (08/29/16) ULTRASONOGRAPHY OF RIGHT UPPER EXTREMITY VEINS, GUIDANCE (02/19/17) VACCINATION NEC (10/26/14) VENOUS CATHETERIZATION FOR RENAL DIALYSIS (03/03/14) Family History: States: Unknown Family Hx - Social History Hx Tobacco Use: No Hx Alcohol Use: No Hx Substance Use: No - Immunization History Hx Tetanus Toxoid Vaccination: No Hx Influenza Vaccination: Yes (05/2017) Hx Pneumococcal Vaccination: Yes (2015) Review Of Systems Constitutional: Negative for: Fever, Chills Cardiovascular: Negative for: Chest Pain Respiratory: Negative for: Shortness of Breath Gastrointestinal: Positive for: Nausea, Vomiting, Abdominal Pain Physical Exam - Physical Exam Appears: Non-toxic, Chronically Ill Skin: Normal Color, Warm, Dry Head: Atraumatic, Normacephalic Eye(s): bilateral: Normal Inspection, EOMI Oral Mucosa: Moist Neck: Normal ROM, Supple Chest: Symmetrical Cardiovascular: Rhythm Regular Respiratory: Normal Breath Sounds Gastrointestinal/Abdominal: Soft, Tenderness (diffuse), No Distention, No Guarding Extremity: Bilateral: Atraumatic, Normal Color And Temperature, Normal ROM Neurological/Psych: Oriented x3, Normal Speech Gait: Steady ED Course And Treatment O2 Sat by Pulse Oximetry: 100 (RA) Pulse Ox Interpretation: Normal Medical Decision Making Medical Decision Making: Impression: Chronic abdominal pain Plan: -- CBC -- CMP -- Catapres 0.1 mg PO -- Zofran 4mg PO -- Dilaudid 1mg IM Time: [address] Edilia Sexton, who will admit patient for intractable abdominal pain, will need dialysis Disposition - Disposition Disposition: HOSPITALIZED Disposition Time: 18:43 Condition: STABLE - POA Present On Arrival: None - Clinical Impression Clinical Impression: ESRD (end stage renal disease) on dialysis, History of diabetic gastroparesis, Chronic pain - PA / INVENTORY ASSISTANT / Resident Statement MD/DO has reviewed & agrees with the documentation as recorded. - Scribe Statement The provider has reviewed the documentation as recorded by the Scribe (Celeste Vitale) Provider Scribe Attestation: All medical record entries made by the Scribe were at my direction and personally dictated by me. I have reviewed the chart and agree that the record accurately reflects my personal performance of the history, physical exam, medical decision making, and the department course for this patient. I have also personally directed, reviewed, and agree with the discharge instructions and disposition. Decision To Admit - Pt Status Changed To: Hospital Disposition Of: Inpatient - Admit Certification Admit to Inpatient:: After my assessment, the patient will require hospitalization for at least two midnights. This is because of the severity of symptoms shown, intensity of services needed, and/or the medical risk in this patient being treated as an outpatient. - InPatient: Physician Admission Certification:: Patient with multiple co-morbidities has intractable abdominal pain. Patient missed dialysis today. - . Bed Request Type: Regular Admitting Physician: Kim Sexton Patient Diagnosis: ESRD (end stage renal disease) on dialysis, History of diabetic gastroparesis, Chronic pain
[2017-09-03 18:57] LABS: BASO # 0.1 K/uL (0.0-0.2); BASO % 1.4 % (0.0-2.0); EOS % 10.8 % (0.0-4.0); HEMOGLOBIN 8.9 g/dL (11.0-16.0); LYMPH # 1.4 K/uL (1.0-4.3); LYMPH % 15.8 % (20.0-40.0); MEAN CELL VOLUME 93.8 fL (81.0-99.0); MEAN CORPUSCULAR HEMOGLOBIN 31.5 pg (27.0-31.0); MEAN CORPUSCULAR HGB CONC 33.5 g/dL (33.0-37.0); MEAN PLATELET VOLUME 7.2 fL (7.2-11.7); MONO # 0.5 K/uL (0.0-0.8); MONO % 5.3 % (0.0-10.0); NEUT # 6.1 K/uL (1.8-7.0); NEUT % 66.7 % (50.0-75.0); NRBC % 0.1 % (0.0-2.0); RBC 2.84 Mil/uL (3.80-5.20); RED CELL DISTRIBUTION WIDTH 16.1 % (11.5-14.5); WHITE BLOOD COUNT 9.2 K/uL (4.8-10.8)
[2017-09-03 19:12] LABS: ALB/GLOB RATIO 1.1 (1.0-2.1); ALBUMIN 4.1 g/dL (3.5-5.0); CALCIUM 7.4 mg/dl (8.6-10.4)
[2017-09-03] MEDS ORDERED: HYDROmorphone 0.5 mg/0.5 ml ISec IM STA (19:15)
[2017-09-03] MEDS ORDERED: DiphenhydrAMINE 50 mg/ml Inj IVP STA (23:00)
[2017-09-03] MEDS ORDERED: HYDROmorphone 0.5 mg/0.5 ml ISec IVP ONE (23:00)
[2017-09-03] MEDS ORDERED: DiphenhydrAMINE 50 mg/ml Inj ONE (23:02)
[2017-09-04] MEDS: DiphenhydrAMINE 50 mg/ml Inj IVP SCH ×8 (01:00→21:59)
[2017-09-04] MEDS: HYDROmorphone 1 mg/ml ISec IVP SCH ×2 (01:00→03:11)
[2017-09-04] MEDS: Pantoprazole 40 mg EC Tab PO SCH (09:56)
[2017-09-04] MEDS: NIFEdipine 30 mg ER Tab PO SCH (09:57)
[2017-09-04] MEDS: Sucralfate 1 gm/10 ml Oral Susp UD PO SCH ×4 (10:02→21:58)
[2017-09-04] MEDS: Ergocalciferol 50,000 Intl Units Cap PO SCH (10:04)
[2017-09-04] MEDS ORDERED: (Novolin R) Insulin Human Regular 100 units/ml vial SC SCH (11:30)
--- NOTE | 2017-09-04 11:45 | CP.PCM.PN ---
Subjective - Date & Time of Evaluation Date of Evaluation: 09/04/17 Time of Evaluation: 11:39 - Subjective Subjective: PGY-[address] Sexton's service: Pt seen and examined at bedside. Nursing reports no acute events overnight. Patient found sitting comfortably at bedside despite reporting "10/10 pain all over" today. She states the pain is worst in her abdomen, and is worse "when she eats too much." Pt reminded with her gastroparesis to eat slow, small portions. She denies any episodes of N/V this AM. Will check schedule to see if patient for dialysis today. Objective - Vital Signs/Intake and Output Vital Signs (last 24 hours): Temp Pulse Resp BP Pulse Ox 97.2 F L 97 H 20 196/104 H 98 09/04/17 07:50 09/04/17 07:50 09/04/17 07:50 09/04/17 07:50 09/04/17 07:50 - Medications Medications: Current Medications Calcium Acetate (Phoslo) 667 mg PO TIDCC [facility] Last Admin: 09/04/17 10:03 Dose: Not Given Clonidine HCl (Catapres) 0.3 mg PO BID [facility] Last Admin: 09/04/17 09:56 Dose: 0.3 mg Diphenhydramine HCl (Benadryl) 25 mg IVP Q3 [facility] Last Admin: 09/04/17 09:57 Dose: 25 mg Docusate Sodium (Colace) 100 mg PO TID [facility] Last Admin: 09/04/17 09:56 Dose: 100 mg Ergocalciferol (Drisdol 50,000 Intl Units Cap) 1 cap PO QWK [facility] Last Admin: 09/04/17 10:04 Dose: 1 cap Gabapentin (Neurontin) 300 mg PO BID [facility] Last Admin: 09/04/17 09:56 Dose: 300 mg Heparin Sodium (Porcine) (Heparin) 5,000 units SC Q12 [facility] Last Admin: 09/04/17 10:02 Dose: Not Given Hydralazine HCl (Apresoline) 25 mg PO QID [facility] Last Admin: 09/04/17 09:56 Dose: 25 mg Hydromorphone HCl (Dilaudid) 2 mg IVP Q3 [facility] Last Admin: 09/04/17 09:56 Dose: 2 mg Insulin Glargine (Lantus) 25 unit SC HS [facility] Insulin Human Regular (Novolin R) 1 unit SC ACHS [facility] PRN Reason: Protocol Metoclopramide HCl (Reglan) 10 mg PO DAILY [facility] Last Admin: 09/04/17 10:01 Dose: 10 mg Nifedipine (Procardia Xl) 30 mg PO DAILY [facility] Last Admin: 09/04/17 09:57 Dose: 30 mg Ondansetron HCl (Zofran Odt) 8 mg PO Q6 PRN PRN Reason: Nausea/Vomiting Pantoprazole Sodium (Protonix Ec Tab) 40 mg PO DAILY [facility] Last Admin: 09/04/17 09:56 Dose: 40 mg Sucralfate (Carafate Oral Susp) 1 gm PO QID [facility] Last Admin: 09/04/17 10:02 Dose: Not Given - Labs Labs: 09/03/17 18:54 09/03/17 18:54 - Constitutional Appears: Non-toxic, No Acute Distress - Head Exam Head Exam: ATRAUMATIC, NORMAL INSPECTION - Eye Exam Eye Exam: EOMI, Normal appearance. absent: Scleral icterus - ENT Exam ENT Exam: Mucous Membranes Moist - Neck Exam Neck Exam: Full ROM - Respiratory Exam Respiratory Exam: Clear to Ausculation Bilateral, NORMAL BREATHING PATTERN. absent: Rales, Rhonchi, Wheezes - Cardiovascular Exam Cardiovascular Exam: REGULAR RHYTHM, +S1, +S2 - GI/Abdominal Exam GI & Abdominal Exam: Soft, Tenderness (diffuse abdominal tenderness), Normal Bowel Sounds. absent: Distended, Guarding - Extremities Exam Extremities Exam: absent: Calf Tenderness, Tenderness - Back Exam Back Exam: absent: CVA tenderness (L), CVA tenderness (R) - Neurological Exam Neurological Exam: Alert, Awake, Oriented x3 - Psychiatric Exam Psychiatric exam: Normal Affect, Normal Mood - Skin Skin Exam: Dry, Normal Color, Warm Assessment and Plan - Assessment and Plan (Free Text) Plan: DM with gastroparesis History of poorly controlled DM - Latest A1C (07/2017): 7.8 Accucheck ACHS hypoglycemia protocol Lantus 25 U SC HS Novolg 1 U SC HC ISS- medium dose Reglan 10mg PO daily Zofran 8mg PO Q6H PRN DM neuropathy neurontin 300mg PO BID Intractable pain Patient states she has pain all over body, although appears to be very comfortable Patient with hx of noncomplinace and drug seeking habits Contine Edid 2mg IVP Q3H Continue Benadryl 25 IV Q3H Anemia of chronic disease Hgb stable today, 8.9 Procrit 10k u MWF IV HTN Patient poorly controlled Clonidine 0.3mg PO BID Hydralazine 25mg PO QID Nifedipine 30mg PO Daily ESRD Nephrology, Dr. Phillips consulted HD normally on // Nephro-main 1 tablet PO daily Procrit 10k u MWF IV Creatinine 8.2 (08/09)- prior to HD Nausea Reglan 10mg PO daily zofran 4mg IV q8hrs Vit D Deficiency Ergocalciferol 50k 1 cap qwkly Hepatitis Diagnosed on previous admission AST/ALT (08/06/17) Prophylaxis Heparin 5k SC q12hrs Protonix 40mg PO daily Zofran prn nausea Colace 100mg PO TID [facility] PGY-2 All medical management per Dr. Sexton
[2017-09-04] MEDS ORDERED: Glucagon Recombinant 1 mg Inj IM PRN (16:22)
--- NOTE | 2017-09-04 16:32 | CP.PCM.HP ---
Past Patient History - Infectious Disease Hx of Infectious Diseases: None - Tetanus Immunizations Tetanus Immunization: Unknown - Past Medical History & Family History Past Medical History?: Yes - Past Social History Smoking Status: Never Smoked - CARDIAC Hx Cardiac Disorders: Yes Hx Congestive Heart Failure: Yes Hx Hypercholesterolemia: Yes Hx Hypertension: Yes Hx Peripheral Edema: Yes - PULMONARY Hx Respiratory Disorders: Yes Hx Asthma: Yes Hx Bronchitis: Yes Hx Pneumonia: Yes Hx Sleep Apnea: Yes - NEUROLOGICAL Hx Neurological Disorder: Yes Hx Seizures: Yes - HEENT Hx HEENT Problems: Yes Hx Cataracts: Yes Hx Glaucoma: Yes - RENAL Hx Chronic Kidney Disease: Yes Hx Kidney Stones: Yes - ENDOCRINE/METABOLIC Hx Endocrine Disorders: Yes Hx Hyperthyroidism: Yes Hx Hypothyroidism: Yes - HEMATOLOGICAL/ONCOLOGICAL Hx Blood Disorders: Yes Hx Anemia: Yes - INTEGUMENTARY Hx Dermatological Problems: Yes Other/Comment: DRY ITCHY SKIN ;multiple/generalized dark spots on skin. left toe blister - MUSCULOSKELETAL/RHEUMATOLOGICAL Hx Musculoskeletal Disorders: Yes Hx Falls: No Hx Fractures: Yes (Sep 2012 L foot) - GASTROINTESTINAL Hx Gastrointestinal Disorders: Yes Hx Gall Bladder Disease: Yes (gallbladder removed) Hx Gastritis: Yes Hx Pancreatitis: Yes (chronic) - GENITOURINARY/GYNECOLOGICAL Hx Genitourinary Disorders: No - PSYCHIATRIC Hx Psychophysiologic Disorder: Yes Hx Anxiety: Yes Hx Substance Use: No - SURGICAL HISTORY Hx Surgeries: Yes Hx Cholecystectomy: Yes Hx Coronary Stent: Yes - ANESTHESIA Hx Anesthesia: Yes Hx Anesthesia Reactions: No Hx Malignant Hyperthermia: No Meds Allergies/Adverse Reactions: Allergies Allergy/AdvReac Type Severity Reaction Status Date / Time ketorolac tromethamine Allergy RASH Verified 08/16/17 17:16 [From Toradol] latex Allergy RASH Verified 08/16/17 17:16 morphine Allergy RASH Verified 08/16/17 17:16 tramadol Allergy RASH Verified 08/16/17 17:16 Physical Exam - Constitutional Appears: Well - Head Exam Head Exam: ATRAUMATIC, NORMAL INSPECTION, NORMOCEPHALIC - Eye Exam Eye Exam: EOMI, Normal appearance, PERRL Pupil Exam: NORMAL ACCOMODATION, PERRL - ENT Exam ENT Exam: Mucous Membranes Moist, Normal Exam - Neck Exam Neck exam: Positive for: Normal Inspection - Respiratory Exam Respiratory Exam: Decreased Breath Sounds - Cardiovascular Exam Cardiovascular Exam: REGULAR RHYTHM, +S1, +S2 - GI/Abdominal Exam GI & Abdominal Exam: Diminished Bowel Sounds, Soft - Rectal Exam Rectal Exam: Deferred Results - Vital Signs Recent Vital Signs: Last Vital Signs Temp 97.8 F 09/04/17 15:45 Pulse 82 09/04/17 15:45 Resp 16 09/04/17 15:45 BP 123/87 09/04/17 16:15 Pulse Ox 98 09/04/17 15:45 - Labs Result Diagrams: 09/03/17 18:54 09/03/17 18:54 Labs: Laboratory Results - last 24 hr 09/03/17 09/03/17 09/04/17 18:54 18:54 06:17 WBC 9.2 RBC 2.84 L Hgb 8.9 L Hct 26.7 L MCV 93.8 MCH 31.5 H MCHC 33.5 RDW 16.1 H Plt Count 445 H D MPV 7.2 Neut % (Auto) 66.7 Lymph % (Auto) 15.8 L Swain % (Auto) 5.3 Eos % (Auto) 10.8 H Baso % (Auto) 1.4 Neut # 6.1 Lymph # 1.4 Swain # 0.5 Eos # 1.0 H Baso # 0.1 Sodium 131 L Potassium 5.5 H Chloride 92 L Carbon Dioxide 22 Anion Gap 23 H BUN 61 H Creatinine 9.1 H* Est GFR ( Amer) 6 Est GFR (Non-Af Amer) 5 POC Glucose (mg/dL) 246 H Random Glucose 296 H Calcium 7.4 L Total Bilirubin 0.5 AST 27 ALT 27 Alkaline Phosphatase 153 H D Total Protein 7.8 Albumin 4.1 Globulin 3.7 Albumin/Globulin Ratio 1.1 09/04/17 11:32 WBC RBC Hgb Hct MCV MCH MCHC RDW Plt Count MPV Neut % (Auto) Lymph % (Auto) Swain % (Auto) Eos % (Auto) Baso % (Auto) Neut # Lymph # Swain # Eos # Baso # Sodium Potassium Chloride Carbon Dioxide Anion Gap BUN Creatinine Est GFR ( Amer) Est GFR (Non-Af Amer) POC Glucose (mg/dL) 215 H Random Glucose Calcium Total Bilirubin AST ALT Alkaline Phosphatase Total Protein Albumin Globulin Albumin/Globulin Ratio
[2017-09-04] MEDS: Epoetin Alfa 10,000 unit/ml Dialysis IV SCH (17:58)
[2017-09-04] MEDS: DiphenhydrAMINE 50 mg/ml Inj IVP PRN (18:23)
--- NOTE | 2017-09-04 19:24 | CP.PCM.CON ---
History of Present Illness - History of Present Illness History of Present Illness: REASONS FOR CONSULT : ESRD ON HD M W F AND SAT ANEMIA OF CKD .. HGB 8.5 [place] IS WELL KNOWN TO ME . WITH MMP AND FREQEUNT ADMISSIONS CAME IN WITH ABDO PAIN History Of Present Illness 31yo female with history of sickle cell disease, gastroparesis and ESRD (on dialysis), presents to ED for evaluation of chronic abdominal pain. She reports associated nausea and vomiting. She missed dialysis today secondary to pain and vomiting. Patient is well known to ED multiple visits for similar complaints. Time Seen by Provider: 09/03/17 17:42 Chief Complaint (Nursing): Abdominal Pain History Per: Patient History/Exam Limitations: no limitations Onset/Duration Of Symptoms: Persistent Current Symptoms Are (Timing): Still Present Location Of Pain/Discomfort: Diffuse Quality Of Discomfort: "Pain" Past Medical History Reviewed: Historical Data, Nursing Documentation, Vital Signs Vital Signs: Last Vital Signs Temp 98.5 F 09/03/17 15:51 Pulse 107 H 09/03/17 15:51 Resp 18 09/03/17 15:51 BP 231/131 H 09/03/17 15:51 Pulse Ox 100 09/03/17 18:15 Past Patient History - Infectious Disease Hx of Infectious Diseases: None - Tetanus Immunizations Tetanus Immunization: Unknown - Past Medical History & Family History Past Medical History?: Yes - Past Social History Smoking Status: Never Smoked - CARDIAC Hx Cardiac Disorders: Yes Hx Congestive Heart Failure: Yes Hx Hypercholesterolemia: Yes Hx Hypertension: Yes Hx Peripheral Edema: Yes - PULMONARY Hx Respiratory Disorders: Yes Hx Asthma: Yes Hx Bronchitis: Yes Hx Pneumonia: Yes Hx Sleep Apnea: Yes - NEUROLOGICAL Hx Neurological Disorder: Yes Hx Seizures: Yes - HEENT Hx HEENT Problems: Yes Hx Cataracts: Yes Hx Glaucoma: Yes - RENAL Hx Chronic Kidney Disease: Yes Hx Kidney Stones: Yes - ENDOCRINE/METABOLIC Hx Endocrine Disorders: Yes Hx Hyperthyroidism: Yes Hx Hypothyroidism: Yes - HEMATOLOGICAL/ONCOLOGICAL Hx Blood Disorders: Yes Hx Anemia: Yes - INTEGUMENTARY Hx Dermatological Problems: Yes Other/Comment: DRY ITCHY SKIN ;multiple/generalized dark spots on skin. left toe blister - MUSCULOSKELETAL/RHEUMATOLOGICAL Hx Musculoskeletal Disorders: Yes Hx Falls: No Hx Fractures: Yes (Sep 2012 L foot) - GASTROINTESTINAL Hx Gastrointestinal Disorders: Yes Hx Gall Bladder Disease: Yes (gallbladder removed) Hx Gastritis: Yes Hx Pancreatitis: Yes (chronic) - GENITOURINARY/GYNECOLOGICAL Hx Genitourinary Disorders: No - PSYCHIATRIC Hx Psychophysiologic Disorder: Yes Hx Anxiety: Yes Hx Substance Use: No - SURGICAL HISTORY Hx Surgeries: Yes Hx Cholecystectomy: Yes Hx Coronary Stent: Yes - ANESTHESIA Hx Anesthesia: Yes Hx Anesthesia Reactions: No Hx Malignant Hyperthermia: No Meds Allergies/Adverse Reactions: Allergies Allergy/AdvReac Type Severity Reaction Status Date / Time ketorolac tromethamine Allergy RASH Verified 08/16/17 17:16 [From Toradol] latex Allergy RASH Verified 08/16/17 17:16 morphine Allergy RASH Verified 08/16/17 17:16 tramadol Allergy RASH Verified 08/16/17 17:16 - Medications Medications: Current Medications Calcium Acetate (Phoslo) 667 mg PO TIDCC [facility] Last Admin: 09/04/17 13:10 Dose: 667 mg Clonidine HCl (Catapres) 0.3 mg PO BID [facility] Last Admin: 09/04/17 09:56 Dose: 0.3 mg Dextrose (Dextrose 50% Inj) 0 ml IV STAT PRN; Protocol PRN Reason: Hypoglycemia Protocol Dextrose (Glutose 15) 0 gm PO ONCE PRN; Protocol PRN Reason: Hypoglycemia Protocol Diphenhydramine HCl (Benadryl) 25 mg IVP Q3 [facility] Last Admin: 09/04/17 16:12 Dose: 25 mg Diphenhydramine HCl (Benadryl) 25 mg IVP ONCE PRN PRN Reason: body itchiness Last Admin: 09/04/17 18:23 Dose: 25 mg Docusate Sodium (Colace) 100 mg PO TID [facility] Last Admin: 09/04/17 13:09 Dose: 100 mg Epoetin James (Procrit) 10,000 unit IV TTS [facility] Stop: 09/15/17 10:01 Last Admin: 09/04/17 17:58 Dose: 10,000 unit Ergocalciferol (Drisdol 50,000 Intl Units Cap) 1 cap PO QWK [facility] Last Admin: 09/04/17 10:04 Dose: 1 cap Gabapentin (Neurontin) 300 mg PO BID [facility] Last Admin: 09/04/17 09:56 Dose: 300 mg Glucagon (Glucagen Diagnostic Kit) 0 mg IM STAT PRN; Protocol PRN Reason: Hypoglycemia Protocol Heparin Sodium (Porcine) (Heparin) 5,000 units SC Q12 [facility] Last Admin: 09/04/17 10:02 Dose: Not Given Hydralazine HCl (Apresoline) 25 mg PO QID [facility] Last Admin: 09/04/17 13:10 Dose: 25 mg Hydromorphone HCl (Dilaudid) 2 mg IVP Q3 [facility] Last Admin: 09/04/17 16:08 Dose: 2 mg Dextrose (Dextrose 5% In Water 1000 Ml) 1,000 mls @ 0 mls/hr IV .Q0M PRN; Protocol; Per Protocol PRN Reason: Hypoglycemia Protocol Insulin Glargine (Lantus) 25 unit SC HS [facility] Insulin Human Regular (Novolin R) 0 unit SC ACHS [facility] PRN Reason: Protocol Metoclopramide HCl (Reglan) 10 mg PO DAILY [facility] Last Admin: 09/04/17 10:01 Dose: 10 mg Nifedipine (Procardia Xl) 30 mg PO DAILY [facility] Last Admin: 09/04/17 09:57 Dose: 30 mg Ondansetron HCl (Zofran Odt) 8 mg PO Q6 PRN PRN Reason: Nausea/Vomiting Pantoprazole Sodium (Protonix Ec Tab) 40 mg PO DAILY [facility] Last Admin: 09/04/17 09:56 Dose: 40 mg Sucralfate (Carafate Oral Susp) 1 gm PO QID [facility] Last Admin: 09/04/17 13:09 Dose: 1 gm Results - Vital Signs Recent Vital Signs: Last Vital Signs Temp 97.8 F 09/04/17 15:45 Pulse 82 09/04/17 18:00 Resp 16 09/04/17 18:00 BP 108/66 09/04/17 18:15 Pulse Ox 98 09/04/17 15:45 - Labs Result Diagrams: 09/03/17 18:54 09/03/17 18:54 Labs: Laboratory Results - last 24 hr 09/04/17 09/04/17 09/04/17 06:17 11:32 17:39 POC Glucose (mg/dL) 246 H 215 H 230 H Assessment & Plan - Assessment and Plan (Free Text) Assessment: ESRD ON HD M W F AND SAT .. FOR HD TODAY ANEMIA OF CKD .. START EPO 10.000 ON HD MMP P : HD TODAY EPO 10.000 ON HD ' C/O CURRENT CARE - Date & Time Date: 09/04/17 Time: 15:00
[2017-09-04] MEDS: (Novolin R) Insulin Human Regular 100 units/ml vial SC SCH ×2 (19:59→22:00)
[2017-09-04] MEDS: (Lantus) Insulin Glargine, Recombinant SC SCH (21:59)
--- NOTE | 2017-09-04 23:09 | CARD ---
APPROVED REPORT EKG Measurement Heart [id number] <Conclusion> Sinus tachycardia Voltage criteria for left ventricular hypertrophy Nonspecific T wave abnormality Abnormal ECG
[2017-09-05] MEDS: DiphenhydrAMINE 50 mg/ml Inj IVP SCH ×8 (01:23→22:16)
[2017-09-05 07:09] LABS: BASO # 0.1 K/uL (0.0-0.2); BASO % 1.5 % (0.0-2.0); EOS # 0.9 K/uL (0.0-0.7); EOS % 12.3 % (0.0-4.0); HEMOGLOBIN 8.9 g/dL (11.0-16.0); LYMPH # 1.5 K/uL (1.0-4.3); LYMPH % 21.8 % (20.0-40.0); MEAN CELL VOLUME 94.9 fL (81.0-99.0); MEAN CORPUSCULAR HGB CONC 32.7 g/dL (33.0-37.0); MEAN PLATELET VOLUME 7.3 fL (7.2-11.7); MONO # 0.6 K/uL (0.0-0.8); MONO % 8.2 % (0.0-10.0); NEUT % 56.2 % (50.0-75.0); NRBC % 0.1 % (0.0-2.0); RBC 2.87 Mil/uL (3.80-5.20); RED CELL DISTRIBUTION WIDTH 16.2 % (11.5-14.5); WHITE BLOOD COUNT 7.1 K/uL (4.8-10.8)
[2017-09-05 08:22] LABS: ALB/GLOB RATIO 1.1 (1.0-2.1); ALBUMIN 3.9 g/dL (3.5-5.0); CALCIUM 8.1 mg/dl (8.6-10.4)
[2017-09-05] MEDS ORDERED: Epoetin Alfa 10,000 unit/ml Dialysis IV SCH (09:00)
--- NOTE | 2017-09-05 09:18 | CP.PCM.PN ---
Subjective - Date & Time of Evaluation Date of Evaluation: 09/05/17 Time of Evaluation: 07:00 - Subjective Subjective: PGY-[address] Edilia Sexton: Patient was seen and examined at bedside. Nursing reports no acute events overnight. Patient found sitting comfortably at bedside despite reporting "10/ 10 pain all over" today. She reports nausea so she is waiting to eat her breakfast. Will check schedule to see if patient for dialysis today. Patient also states that her toes look darker and seem to not be healing from her surgery. She also says that some sutures are remaining. Objective - Vital Signs/Intake and Output Vital Signs (last 24 hours): Temp Pulse Resp BP Pulse Ox 96.7 F L 101 H 20 144/81 99 09/05/17 07:55 09/05/17 07:55 09/05/17 07:55 09/05/17 07:55 09/05/17 07:55 Intake and Output: 09/05/17 09/05/17 06:59 18:59 Intake Total 200 Balance 200 - Medications Medications: Current Medications Calcium Acetate (Phoslo) 667 mg PO TIDCC [facility] Last Admin: 09/04/17 19:59 Dose: 667 mg Clonidine HCl (Catapres) 0.3 mg PO BID [facility] Last Admin: 09/04/17 19:59 Dose: 0.3 mg Dextrose (Dextrose 50% Inj) 0 ml IV STAT PRN; Protocol PRN Reason: Hypoglycemia Protocol Dextrose (Glutose 15) 0 gm PO ONCE PRN; Protocol PRN Reason: Hypoglycemia Protocol Diphenhydramine HCl (Benadryl) 25 mg IVP Q3 [facility] Last Admin: 09/05/17 06:32 Dose: 25 mg Diphenhydramine HCl (Benadryl) 25 mg IVP ONCE PRN PRN Reason: body itchiness Last Admin: 09/04/17 18:23 Dose: 25 mg Docusate Sodium (Colace) 100 mg PO TID [facility] Last Admin: 09/04/17 19:59 Dose: 100 mg Epoetin James (Procrit) 10,000 unit IV TTS [facility] Stop: 09/15/17 10:01 Last Admin: 09/04/17 17:58 Dose: 10,000 unit Ergocalciferol (Drisdol 50,000 Intl Units Cap) 1 cap PO QWK [facility] Last Admin: 09/04/17 10:04 Dose: 1 cap Gabapentin (Neurontin) 300 mg PO BID [facility] Last Admin: 09/04/17 19:59 Dose: 300 mg Glucagon (Glucagen Diagnostic Kit) 0 mg IM STAT PRN; Protocol PRN Reason: Hypoglycemia Protocol Heparin Sodium (Porcine) (Heparin) 5,000 units SC Q12 [facility] Last Admin: 09/04/17 21:23 Dose: Not Given Hydralazine HCl (Apresoline) 25 mg PO QID [facility] Last Admin: 09/04/17 21:59 Dose: 25 mg Hydromorphone HCl (Dilaudid) 2 mg IVP Q3 [facility] Last Admin: 09/05/17 06:33 Dose: 2 mg Dextrose (Dextrose 5% In Water 1000 Ml) 1,000 mls @ 0 mls/hr IV .Q0M PRN; Protocol; Per Protocol PRN Reason: Hypoglycemia Protocol Insulin Glargine (Lantus) 25 unit SC HS [facility] Last Admin: 09/04/17 21:59 Dose: 25 unit Insulin Human Regular (Novolin R) 0 unit SC [facility] PRN Reason: Protocol Last Admin: 09/04/17 22:00 Dose: Not Given Metoclopramide HCl (Reglan) 10 mg PO DAILY [facility] Last Admin: 09/04/17 10:01 Dose: 10 mg Nifedipine (Procardia Xl) 30 mg PO DAILY [facility] Last Admin: 09/04/17 09:57 Dose: 30 mg Ondansetron HCl (Zofran Odt) 8 mg PO Q6 PRN PRN Reason: Nausea/Vomiting Pantoprazole Sodium (Protonix Ec Tab) 40 mg PO DAILY [facility] Last Admin: 09/04/17 09:56 Dose: 40 mg Sucralfate (Carafate Oral Susp) 1 gm PO QID [facility] Last Admin: 09/04/17 21:58 Dose: 1 gm - Labs Labs: 09/05/17 06:58 09/05/17 06:58 Assessment and Plan - Assessment and Plan (Free Text) Assessment: DM with gastroparesis History of poorly controlled DM - Latest A1C (07/2017): 7.8 Accucheck ACHS hypoglycemia protocol Lantus 25 U SC HS Novolg 1 U SC HC ISS- medium dose Reglan 10mg PO daily Zofran 8mg PO Q6H PRN Intractable pain Patient states she has pain all over body, although appears to be very comfortable Patient with hx of noncompliance and drug seeking habits. Patient was given fentanyl patched on last admission but had issues obtaining them due to insurance. She also has not made an appointment with pain management. Continue Dilaudid 2mg IVP Q3H Continue Benadryl 25 IV Q3H S/p left hallux nail matrixectomy on last admission Sutures still present Patient think toes are dark and not healing DM neuropathy neurontin 300mg PO BID Anemia of chronic disease Hgb stable today, 8.9 Procrit 10k u MWF IV HTN Patient poorly controlled Clonidine 0.3mg PO BID Hydralazine 25mg PO QID Nifedipine 30mg PO Daily ESRD Nephrology, Dr. Phillips consulted HD normally on // Nephro-main 1 tablet PO daily Procrit 10k u MWF IV Nausea Reglan 10mg PO daily zofran 4mg IV q8hrs Vit D Deficiency Ergocalciferol 50k 1 cap qwkly Hepatitis Diagnosed on previous admission AST/ALT / (08/06/17) Prophylaxis Heparin 5k SC q12hrs Protonix 40mg PO daily Zofran prn nausea Colace 100mg PO TID [facility] Mon PGY-2 All medical management per Dr. Edilia Sexton
[2017-09-05] MEDS: Sucralfate 1 gm/10 ml Oral Susp UD PO SCH ×4 (10:07→21:08)
[2017-09-05] MEDS: Pantoprazole 40 mg EC Tab PO SCH (10:09)
[2017-09-05] MEDS: (Novolin R) Insulin Human Regular 100 units/ml vial SC SCH ×5 (10:15→22:17)
[2017-09-05] MEDS: NIFEdipine 30 mg ER Tab PO SCH (10:16)
--- NOTE | 2017-09-05 18:25 | CP.PCM.CON ---
History of Present Illness - History of Present Illness History of Present Illness: 31yo female with history of sickle cell disease, gastroparesis and ESRD (on dialysis), presents to ED for evaluation of chronic abdominal pain. She reports associated nausea and vomiting. She missed dialysis today secondary to pain and vomiting. Patient is well known to ED multiple visits for similar complaints. c/o drainage fronm toes right and left feet Review of Systems - Review of Systems All systems: reviewed and no additional remarkable complaints except - Constitutional Constitutional: absent: As Per HPI, Anorexia, Chills, Daytime Sleepiness, Excessive Sweating, Fatigue, Fever, Frequent Falls, Headache, Increased Appetite , Lethargy, Malaise, Night Sweats, Snoring, Sleep Apnea, Weight Gain, Weight Loss, Weakness, Other - EENT Eyes: absent: As Per HPI, Blind Spots, Blurred Vision, Change in Vision, Decreased Night Vision, Diplopia, Discharge, Dry Eye, Exophthalmos, Floaters, Irritation, Itchy Eyes, Loss of Peripheral Vision, Pain, Photophobia, Requires Corrective Lenses, Sees Flashes, Spots in Vision, Tunnel Vision, Other Visual Disturbances, Loss of Vision, Other Ears: absent: As Per HPI, Decreased Hearing, Ear Discharge, Ear Pain, Tinnitus, Abnormal Hearing, Disequilibrium, Dizziness, Other Nose/Mouth/Throat: absent: As Per HPI, Epistaxis, Nasal Congestion, Nasal Discharge, Nasal Obstruction, Nasal Trauma, Nose Pain, Post Nasal Drip, Sinus Pain, Sinus Pressure, Bleeding Gums, Change in Voice, Dental Pain, Dry Mouth, Dysphagia, Halitosis, Hoarsness, Lip Swelling, Mouth Lesions, Mouth Pain, Odynophagia, Sore Throat, Throat Swelling, Tongue Swelling, Facial Pain, Neck Pain, Neck Mass, Other - Breasts Breasts: absent: As Per HPI, Change in Shape, Mass, Pain, Nipple Discharge, Nipple Inversion, Skin Changes, Swelling, Other - Cardiovascular Cardiovascular: absent: As Per HPI, Acrocyanosis, Chest Pain, Chest Pain at Rest , Chest Pain with Activity, Claudication, Diaphoresis, Dyspnea, Dyspnea on Exertion, Edema, Irregular Heart Rhythm, Pain Radiating to Arm/Neck/Jaw, Leg Edema, Leg Ulcers, Lightheadedness, Orthopnea, Palpitations, Paroxysmal Nocturnal Dyspnea, Pedal Edema, Radiating Pain, Rapid Heart Rate, Slow Heart Rate, Syncope, Other - Respiratory Respiratory: absent: As Per HPI, Cough, Dyspnea, Hemoptysis, Dyspnea on Exertion , Wheezing, Snoring, Stridor, Pain on Inspiration, Chest Congestion, Excessive Mucous Production, Change in Mucous Color, Pain with Coughing, Other - Gastrointestinal Gastrointestinal: absent: As Per HPI, Abdominal Pain, Belching, Bloating, Change in Bowel Habits, Change in Stool Character, Coffee Ground Emesis, Constipation, Cramping, Diarrhea, Dyspepsia, Dysphagia, Early Satiety, Excessive Flatus, Fecal Incontinence, Heartburn, Hematemesis, Hematochezia, Loose Stools, Melena, Nausea, Odynophagia, Temesmus, Vomiting, Other - Genitourinary Genitourinary: absent: As Per HPI, Change in Urinary Stream, Difficulty Urinating, Dysuria, Flank Pain, Hematuria, Pyuria, Nocturia, Urinary Incontinence, Urinary Frequency, Urinary Hesitance, Urinary Urgency, Voiding Freq/Small Amts, Freq UTI, Hx Renal/Bladder Calculi, Hx /Renal Surgery, Bladder Distension, Other - Reproductive: Female Reproductive:Female: absent: As Per HPI, Amenorrhea, Amenorrhea/ Control, Currently Menstual, Cycle <21 Days, Cycle >35 Days, Cycle Variable, Menses 1-7 Days, Menses >/= 8 Days, Menses Variable, Cycle > 4 Weeks Between, No Menses for 6 Months, Heavy Menses, Light Menses, Normal Menses, Spotting Between Cycles , S/P Hysterectomy, Menopausal, Post Menopausal, Premenarche, Abnormal Vaginal Bleeding, Dysmenorrhea, Dyspareunia, Genital Lesions, Genital Pruritis, Pelvic Pain, Prolapse Symptoms, Sexual Dysfunction, Vaginal Discharge, Vaginal Dryness , Vaginal Odor, Vaginal Pruritis, Other - Menstruation Menstruation: absent: As Per HPI, Amenorrhea, Amenorrhea/ Control, Currently Menstual, Cycle <21 Days, Cycle >35 Days, Cycle Variable, Menses 1-7 Days, Menses >/= 8 Days, Menses Variable, Cycle > 4 Weeks Between, No Menses for 6 Months, Heavy Menses, Light Menses, Normal Menses, Spotting Between Cycles , S/P Hysterectomy, Menopausal, Post Menopausal, Premenarche, Abnormal Vaginal Bleeding, Dysmenorrhea, Other - Musculoskeletal Musculoskeletal: As Per HPI - Integumentary Integumentary: As Per HPI - Neurological Neurological: As Per HPI - Psychiatric Psychiatric: absent: As Per HPI, Abnormal Sleep Pattern, Anhedonia, Anxiety, Auditory Hallucinations, Behavioral Changes, Change in Appetite, Change in Libido, Confusion, Depression, Difficulty Concentrating, Hallucinations, Homicidal Ideation, Hopelessness, Irritability, Memory Loss, Mood Swings, Panic Attacks, Paranoia, Suicidal Ideation, Visual Hallucinations, Tactile Hallucinations, Other - Endocrine Endocrine: As Per HPI - Hematologic/Lymphatic Hematologic: As Per HPI Past Patient History - Infectious Disease Hx of Infectious Diseases: None - Tetanus Immunizations Tetanus Immunization: Unknown - Past Medical History & Family History Past Medical History?: Yes - Past Social History Smoking Status: Never Smoked - CARDIAC Hx Cardiac Disorders: Yes Hx Congestive Heart Failure: Yes Hx Hypercholesterolemia: Yes Hx Hypertension: Yes Hx Peripheral Edema: Yes - PULMONARY Hx Respiratory Disorders: Yes Hx Asthma: Yes Hx Bronchitis: Yes Hx Pneumonia: Yes Hx Sleep Apnea: Yes - NEUROLOGICAL Hx Neurological Disorder: Yes Hx Seizures: Yes - HEENT Hx HEENT Problems: Yes Hx Cataracts: Yes Hx Glaucoma: Yes - RENAL Hx Chronic Kidney Disease: Yes Hx Kidney Stones: Yes - ENDOCRINE/METABOLIC Hx Endocrine Disorders: Yes Hx Hyperthyroidism: Yes Hx Hypothyroidism: Yes - HEMATOLOGICAL/ONCOLOGICAL Hx Blood Disorders: Yes Hx Anemia: Yes - INTEGUMENTARY Hx Dermatological Problems: Yes Other/Comment: DRY ITCHY SKIN ;multiple/generalized dark spots on skin. left toe blister - MUSCULOSKELETAL/RHEUMATOLOGICAL Hx Musculoskeletal Disorders: Yes Hx Falls: No Hx Fractures: Yes (Sep 2012 L foot) - GASTROINTESTINAL Hx Gastrointestinal Disorders: Yes Hx Gall Bladder Disease: Yes (gallbladder removed) Hx Gastritis: Yes Hx Pancreatitis: Yes (chronic) - GENITOURINARY/GYNECOLOGICAL Hx Genitourinary Disorders: No - PSYCHIATRIC Hx Psychophysiologic Disorder: Yes Hx Anxiety: Yes Hx Substance Use: No - SURGICAL HISTORY Hx Surgeries: Yes Hx Cholecystectomy: Yes Hx Coronary Stent: Yes - ANESTHESIA Hx Anesthesia: Yes Hx Anesthesia Reactions: No Hx Malignant Hyperthermia: No Meds Allergies/Adverse Reactions: Allergies Allergy/AdvReac Type Severity Reaction Status Date / Time ketorolac tromethamine Allergy RASH Verified 08/16/17 17:16 [From Toradol] latex Allergy RASH Verified 08/16/17 17:16 morphine Allergy RASH Verified 08/16/17 17:16 tramadol Allergy RASH Verified 08/16/17 17:16 - Medications Medications: Current Medications Calcium Acetate (Phoslo) 667 mg PO TIDCC [facility] Last Admin: 09/05/17 16:17 Dose: 667 mg Clonidine HCl (Catapres) 0.3 mg PO BID [facility] Last Admin: 09/05/17 10:15 Dose: 0.3 mg Dextrose (Dextrose 50% Inj) 0 ml IV STAT PRN; Protocol PRN Reason: Hypoglycemia Protocol Dextrose (Glutose 15) 0 gm PO ONCE PRN; Protocol PRN Reason: Hypoglycemia Protocol Diphenhydramine HCl (Benadryl) 25 mg IVP Q3 [facility] Last Admin: 09/05/17 16:16 Dose: 25 mg Diphenhydramine HCl (Benadryl) 25 mg IVP ONCE PRN PRN Reason: body itchiness Last Admin: 09/04/17 18:23 Dose: 25 mg Docusate Sodium (Colace) 100 mg PO TID [facility] Last Admin: 09/05/17 13:20 Dose: 100 mg Epoetin James (Procrit) 10,000 unit IV TTS [facility] Stop: 09/15/17 10:01 Last Admin: 09/04/17 17:58 Dose: 10,000 unit Ergocalciferol (Drisdol 50,000 Intl Units Cap) 1 cap PO QWK [facility] Last Admin: 09/04/17 10:04 Dose: 1 cap Gabapentin (Neurontin) 300 mg PO DAILY [facility] Glucagon (Glucagen Diagnostic Kit) 0 mg IM STAT PRN; Protocol PRN Reason: Hypoglycemia Protocol Heparin Sodium (Porcine) (Heparin) 5,000 units SC Q12 [facility] Last Admin: 09/05/17 10:15 Dose: Not Given Hydralazine HCl (Apresoline) 25 mg PO QID [facility] Last Admin: 09/05/17 13:24 Dose: 25 mg Hydromorphone HCl (Dilaudid) 2 mg IVP Q3 [facility] Last Admin: 09/05/17 16:17 Dose: 2 mg Dextrose (Dextrose 5% In Water 1000 Ml) 1,000 mls @ 0 mls/hr IV .Q0M PRN; Protocol; Per Protocol PRN Reason: Hypoglycemia Protocol Insulin Glargine (Lantus) 25 unit SC HS [facility] Last Admin: 09/04/17 21:59 Dose: 25 unit Insulin Human Regular (Novolin R) 0 unit SC ACHS [facility] PRN Reason: Protocol Last Admin: 09/05/17 16:57 Dose: Not Given Metoclopramide HCl (Reglan) 10 mg PO DAILY [facility] Last Admin: 09/05/17 10:09 Dose: 10 mg Nifedipine (Procardia Xl) 30 mg PO DAILY [facility] Last Admin: 09/05/17 10:16 Dose: 30 mg Ondansetron HCl (Zofran Odt) 8 mg PO Q6 PRN PRN Reason: Nausea/Vomiting Pantoprazole Sodium (Protonix Ec Tab) 40 mg PO DAILY [facility] Last Admin: 09/05/17 10:09 Dose: 40 mg Sucralfate (Carafate Oral Susp) 1 gm PO QID [facility] Last Admin: 09/05/17 13:21 Dose: 1 gm Physical Exam - Constitutional Appears: Non-toxic, Chronically Ill - Head Exam Head Exam: NORMOCEPHALIC - Eye Exam Eye Exam: PERRL - ENT Exam ENT Exam: Mucous Membranes Dry - Neck Exam Neck exam: Negative for: Lymphadenopathy - Respiratory Exam Respiratory Exam: Decreased Breath Sounds - Cardiovascular Exam Cardiovascular Exam: REGULAR RHYTHM, +S1, +S2 - GI/Abdominal Exam GI & Abdominal Exam: Diminished Bowel Sounds, Soft. absent: Tenderness - Rectal Exam Rectal Exam: Deferred - Exam Exam: NORMAL INSPECTION - Extremities Exam Extremities exam: Positive for: pedal edema, tenderness, pedal pulses present. Negative for: calf tenderness - Back Exam Back exam: absent: CVA tenderness (L), CVA tenderness (R), paraspinal tenderness - Neurological Exam Neurological exam: Alert, CN II-XII Intact, Oriented x3, Reflexes Normal - Psychiatric Exam Psychiatric exam: Normal Mood - Skin Skin Exam: Dry Results - Vital Signs Recent Vital Signs: Last Vital Signs Temp 98.7 F 09/05/17 16:32 Pulse 89 09/05/17 16:32 Resp 20 09/05/17 16:32 BP 100/64 09/05/17 16:32 Pulse Ox 99 09/05/17 16:32 - Labs Result Diagrams: 09/05/17 06:58 09/05/17 06:58 Labs: Laboratory Results - last 24 hr 09/04/17 09/04/17 09/05/17 19:50 21:31 06:36 WBC RBC Hgb Hct MCV MCH MCHC RDW Plt Count MPV Neut % (Auto) Lymph % (Auto) Reeves % (Auto) Eos % (Auto) Baso % (Auto) Neut # Lymph # Reeves # Eos # Baso # Sodium Potassium Chloride Carbon Dioxide Anion Gap BUN Creatinine Est GFR ( Amer) Est GFR (Non-Af Amer) POC Glucose (mg/dL) 228 H 293 H 248 H Random Glucose Calcium Phosphorus Magnesium Total Bilirubin AST ALT Alkaline Phosphatase Total Protein Albumin Globulin Albumin/Globulin Ratio 09/05/17 09/05/17 09/05/17 06:58 06:58 12:03 WBC 7.1 RBC 2.87 L Hgb 8.9 L Hct 27.3 L MCV 94.9 MCH 31.0 MCHC 32.7 L RDW 16.2 H Plt Count 423 H MPV 7.3 Neut % (Auto) 56.2 Lymph % (Auto) 21.8 Reeves % (Auto) 8.2 Eos % (Auto) 12.3 H Baso % (Auto) 1.5 Neut # 4.0 Lymph # 1.5 Reeves # 0.6 Eos # 0.9 H Baso # 0.1 Sodium 135 Potassium 4.6 Chloride 94 L Carbon Dioxide 30 Anion Gap 16 BUN 46 H Creatinine 7.1 H Est GFR ( Amer) 8 Est GFR (Non-Af Amer) 7 POC Glucose (mg/dL) 290 H Random Glucose 239 H Calcium 8.1 L Phosphorus 5.0 H Magnesium 2.0 Total Bilirubin 0.5 AST 30 ALT 26 Alkaline Phosphatase 150 H Total Protein 7.5 Albumin 3.9 Globulin 3.6 Albumin/Globulin Ratio 1.1 09/05/17 16:33 WBC RBC Hgb Hct MCV MCH MCHC RDW Plt Count MPV Neut % (Auto) Lymph % (Auto) Reeves % (Auto) Eos % (Auto) Baso % (Auto) Neut # Lymph # Reeves # Eos # Baso # Sodium Potassium Chloride Carbon Dioxide Anion Gap BUN Creatinine Est GFR ( Amer) Est GFR (Non-Af Amer) POC Glucose (mg/dL) 86 Random Glucose Calcium Phosphorus Magnesium Total Bilirubin AST ALT Alkaline Phosphatase Total Protein Albumin Globulin Albumin/Globulin Ratio Assessment & Plan (1) Cellulitis and abscess of foot Status: Acute (2) ESRD (end stage renal disease) on dialysis Status: Acute (3) History of diabetic gastroparesis Status: Acute (4) Accelerated essential hypertension Status: Acute - Assessment and Plan (Free Text) Assessment: [facility] podiatry eval resume beto consider repeat MRI
--- NOTE | 2017-09-05 19:20 | CP.PCM.PN ---
Subjective - Date & Time of Evaluation Date of Evaluation: 09/05/17 Time of Evaluation: 09:40 - Subjective Subjective: clinically same Objective - Vital Signs/Intake and Output Vital Signs (last 24 hours): Temp Pulse Resp BP Pulse Ox 98.7 F 89 20 100/64 99 09/05/17 16:32 09/05/17 16:32 09/05/17 16:32 09/05/17 16:32 09/05/17 16:32 - Medications Medications: Current Medications Calcium Acetate (Phoslo) 667 mg PO TIDCC [facility] Last Admin: 09/05/17 16:17 Dose: 667 mg Clonidine HCl (Catapres) 0.3 mg PO BID [facility] Last Admin: 09/05/17 10:15 Dose: 0.3 mg Dextrose (Dextrose 50% Inj) 0 ml IV STAT PRN; Protocol PRN Reason: Hypoglycemia Protocol Dextrose (Glutose 15) 0 gm PO ONCE PRN; Protocol PRN Reason: Hypoglycemia Protocol Diphenhydramine HCl (Benadryl) 25 mg IVP Q3 [facility] Last Admin: 09/05/17 16:16 Dose: 25 mg Diphenhydramine HCl (Benadryl) 25 mg IVP ONCE PRN PRN Reason: body itchiness Last Admin: 09/04/17 18:23 Dose: 25 mg Docusate Sodium (Colace) 100 mg PO TID [facility] Last Admin: 09/05/17 13:20 Dose: 100 mg Epoetin James (Procrit) 10,000 unit IV TTS [facility] Stop: 09/15/17 10:01 Last Admin: 09/04/17 17:58 Dose: 10,000 unit Ergocalciferol (Drisdol 50,000 Intl Units Cap) 1 cap PO QWK [facility] Last Admin: 09/04/17 10:04 Dose: 1 cap Gabapentin (Neurontin) 300 mg PO DAILY [facility] Glucagon (Glucagen Diagnostic Kit) 0 mg IM STAT PRN; Protocol PRN Reason: Hypoglycemia Protocol Heparin Sodium (Porcine) (Heparin) 5,000 units SC Q12 [facility] Last Admin: 09/05/17 10:15 Dose: Not Given Hydralazine HCl (Apresoline) 25 mg PO QID [facility] Last Admin: 09/05/17 13:24 Dose: 25 mg Hydromorphone HCl (Dilaudid) 2 mg IVP Q3 [facility] Last Admin: 09/05/17 16:17 Dose: 2 mg Dextrose (Dextrose 5% In Water 1000 Ml) 1,000 mls @ 0 mls/hr IV .Q0M PRN; Protocol; Per Protocol PRN Reason: Hypoglycemia Protocol Vancomycin/Sodium Chloride (Vancomycin 1 Gm/Ns 200 Ml) 1 gm in 200 mls @ 133 mls/hr IVPB MWF [facility] Stop: 09/10/17 19:01 Insulin Glargine (Lantus) 25 unit SC HS [facility] Last Admin: 09/04/17 21:59 Dose: 25 unit Insulin Human Regular (Novolin R) 0 unit SC ACHS [facility] PRN Reason: Protocol Last Admin: 09/05/17 16:57 Dose: Not Given Metoclopramide HCl (Reglan) 10 mg PO DAILY [facility] Last Admin: 09/05/17 10:09 Dose: 10 mg Nifedipine (Procardia Xl) 30 mg PO DAILY [facility] Last Admin: 09/05/17 10:16 Dose: 30 mg Ondansetron HCl (Zofran Odt) 8 mg PO Q6 PRN PRN Reason: Nausea/Vomiting Pantoprazole Sodium (Protonix Ec Tab) 40 mg PO DAILY [facility] Last Admin: 09/05/17 10:09 Dose: 40 mg Sucralfate (Carafate Oral Susp) 1 gm PO QID [facility] Last Admin: 09/05/17 13:21 Dose: 1 gm - Labs Labs: 09/05/17 06:58 09/05/17 06:58
[2017-09-05] MEDS: Vancomycin 1 gm/NS 200 ml 1 GM/200 ML BAG IVPB SCH (22:14)
[2017-09-05] MEDS: (Lantus) Insulin Glargine, Recombinant SC SCH (22:15)
--- NOTE | 2017-09-05 23:54 | CP.PCM.PN ---
Subjective - Date & Time of Evaluation Date of Evaluation: 09/05/17 Time of Evaluation: 17:00 - Subjective Subjective: SEEN ON RENAL F/U MOM ON THE BED SIDE JUST COMPLETED HER HD FEELS IMPROVED ALL PREVIOUS EMR REVIEWED Objective - Vital Signs/Intake and Output Vital Signs (last 24 hours): Temp Pulse Resp BP Pulse Ox 98.7 F 89 20 100/64 99 09/05/17 16:32 09/05/17 16:32 09/05/17 16:32 09/05/17 16:32 09/05/17 16:32 Intake and Output: 09/05/17 09/06/17 18:59 06:59 Intake Total 500 Balance 500 - Medications Medications: Current Medications Calcium Acetate (Phoslo) 667 mg PO TIDCC [facility] Last Admin: 09/05/17 16:17 Dose: 667 mg Clonidine HCl (Catapres) 0.3 mg PO BID [facility] Last Admin: 09/05/17 19:23 Dose: 0.3 mg Dextrose (Dextrose 50% Inj) 0 ml IV STAT PRN; Protocol PRN Reason: Hypoglycemia Protocol Dextrose (Glutose 15) 0 gm PO ONCE PRN; Protocol PRN Reason: Hypoglycemia Protocol Diphenhydramine HCl (Benadryl) 25 mg IVP Q3 [facility] Last Admin: 09/05/17 22:16 Dose: 25 mg Diphenhydramine HCl (Benadryl) 25 mg IVP ONCE PRN PRN Reason: body itchiness Last Admin: 09/04/17 18:23 Dose: 25 mg Docusate Sodium (Colace) 100 mg PO TID [facility] Last Admin: 09/05/17 19:23 Dose: 100 mg Epoetin James (Procrit) 10,000 unit IV TTS [facility] Stop: 09/15/17 10:01 Last Admin: 09/04/17 17:58 Dose: 10,000 unit Ergocalciferol (Drisdol 50,000 Intl Units Cap) 1 cap PO QWK [facility] Last Admin: 09/04/17 10:04 Dose: 1 cap Gabapentin (Neurontin) 300 mg PO DAILY [facility] Glucagon (Glucagen Diagnostic Kit) 0 mg IM STAT PRN; Protocol PRN Reason: Hypoglycemia Protocol Heparin Sodium (Porcine) (Heparin) 5,000 units SC Q12 [facility] Last Admin: 09/05/17 22:17 Dose: Not Given Hydralazine HCl (Apresoline) 25 mg PO QID [facility] Last Admin: 09/05/17 22:15 Dose: 25 mg Hydromorphone HCl (Dilaudid) 2 mg IVP Q3 [facility] Last Admin: 09/05/17 22:16 Dose: 2 mg Dextrose (Dextrose 5% In Water 1000 Ml) 1,000 mls @ 0 mls/hr IV .Q0M PRN; Protocol; Per Protocol PRN Reason: Hypoglycemia Protocol Vancomycin/Sodium Chloride (Vancomycin 1 Gm/Ns 200 Ml) 1 gm in 200 mls @ 133 mls/hr IVPB MWF [facility] Stop: 09/10/17 19:01 Last Admin: 09/05/17 22:14 Dose: 133 mls/hr Insulin Glargine (Lantus) 25 unit SC HS [facility] Last Admin: 09/05/17 22:15 Dose: 25 unit Insulin Human Regular (Novolin R) 0 unit SC ACHS [facility] PRN Reason: Protocol Last Admin: 09/05/17 22:17 Dose: Not Given Metoclopramide HCl (Reglan) 10 mg PO DAILY [facility] Last Admin: 09/05/17 10:09 Dose: 10 mg Nifedipine (Procardia Xl) 30 mg PO DAILY [facility] Last Admin: 09/05/17 10:16 Dose: 30 mg Ondansetron HCl (Zofran Odt) 8 mg PO Q6 PRN PRN Reason: Nausea/Vomiting Pantoprazole Sodium (Protonix Ec Tab) 40 mg PO DAILY [facility] Last Admin: 09/05/17 10:09 Dose: 40 mg Sucralfate (Carafate Oral Susp) 1 gm PO QID [facility] Last Admin: 09/05/17 21:08 Dose: Not Given - Labs Labs: 09/05/17 06:58 09/05/17 06:58 Assessment and Plan - Assessment and Plan (Free Text) Assessment: ESRD ON HD M W F AND SAT .. THIS WEEK SHE WILL BE TTS .. THEN NEXT WEEK SHE WILL BE M W F AND SAT ANEMIA OF CKD .. ON EPO MMP P : C/O CURRENT CARE C/O PRESENT MEDS
[2017-09-06] MEDS: DiphenhydrAMINE 50 mg/ml Inj IVP SCH ×8 (01:00→22:57)
[2017-09-06] MEDS: DiphenhydrAMINE 50 mg/ml Inj IVP PRN (01:58)
[2017-09-06 07:33] LABS: BASO # 0.1 K/uL (0.0-0.2); BASO % 1.9 % (0.0-2.0); EOS # 1.3 K/uL (0.0-0.7); EOS % 15.9 % (0.0-4.0); HEMOGLOBIN 8.8 g/dL (11.0-16.0); LYMPH # 2.2 K/uL (1.0-4.3); LYMPH % 27.9 % (20.0-40.0); MEAN CELL VOLUME 95.9 fL (81.0-99.0); MEAN CORPUSCULAR HEMOGLOBIN 32.2 pg (27.0-31.0); MEAN CORPUSCULAR HGB CONC 33.6 g/dL (33.0-37.0); MEAN PLATELET VOLUME 7.8 fL (7.2-11.7); MONO # 0.6 K/uL (0.0-0.8); MONO % 7.2 % (0.0-10.0); NEUT # 3.8 K/uL (1.8-7.0); NEUT % 47.1 % (50.0-75.0); NRBC % 0.1 % (0.0-2.0); RBC 2.72 Mil/uL (3.80-5.20); RED CELL DISTRIBUTION WIDTH 16.5 % (11.5-14.5)
[2017-09-06 08:16] LABS: ALB/GLOB RATIO 1.1 (1.0-2.1); ALBUMIN 3.9 g/dL (3.5-5.0); CALCIUM 7.8 mg/dl (8.6-10.4); MAGNESIUM 2.2 mg/dL (1.6-2.3)
[2017-09-06] MEDS: (Novolin R) Insulin Human Regular 100 units/ml vial SC SCH ×4 (08:54→21:46)
[2017-09-06] MEDS: Sucralfate 1 gm/10 ml Oral Susp UD PO SCH ×4 (08:55→22:56)
[2017-09-06] MEDS: Pantoprazole 40 mg EC Tab PO SCH (09:07)
[2017-09-06] MEDS: NIFEdipine 30 mg ER Tab PO SCH (09:58)
--- NOTE | 2017-09-06 12:02 | CP.PCM.PN ---
Subjective - Date & Time of Evaluation Date of Evaluation: 09/06/17 Time of Evaluation: 10:20 - Subjective Subjective: clinically same Objective - Vital Signs/Intake and Output Vital Signs (last 24 hours): Temp Pulse Resp BP Pulse Ox 98 F 85 20 179/102 H 99 09/06/17 08:00 09/06/17 08:00 09/06/17 08:00 09/06/17 08:00 09/06/17 08:00 Intake and Output: 09/06/17 09/06/17 06:59 18:59 Intake Total 500 Balance 500 - Medications Medications: Current Medications Calcium Acetate (Phoslo) 667 mg PO TIDCC [facility] Last Admin: 09/06/17 11:39 Dose: 667 mg Clonidine HCl (Catapres) 0.3 mg PO BID [facility] Last Admin: 09/06/17 10:01 Dose: 0.3 mg Dextrose (Dextrose 50% Inj) 0 ml IV STAT PRN; Protocol PRN Reason: Hypoglycemia Protocol Dextrose (Glutose 15) 0 gm PO ONCE PRN; Protocol PRN Reason: Hypoglycemia Protocol Diphenhydramine HCl (Benadryl) 25 mg IVP Q3 [facility] Last Admin: 09/06/17 10:02 Dose: 25 mg Diphenhydramine HCl (Benadryl) 25 mg IVP ONCE PRN PRN Reason: body itchiness Last Admin: 09/06/17 01:58 Dose: 25 mg Docusate Sodium (Colace) 100 mg PO TID [facility] Last Admin: 09/06/17 08:59 Dose: 100 mg Epoetin James (Procrit) 10,000 unit IV TTS [facility] Stop: 09/15/17 10:01 Last Admin: 09/04/17 17:58 Dose: 10,000 unit Ergocalciferol (Drisdol 50,000 Intl Units Cap) 1 cap PO QWK [facility] Last Admin: 09/04/17 10:04 Dose: 1 cap Gabapentin (Neurontin) 300 mg PO DAILY [facility] Last Admin: 09/06/17 09:07 Dose: 300 mg Glucagon (Glucagen Diagnostic Kit) 0 mg IM STAT PRN; Protocol PRN Reason: Hypoglycemia Protocol Heparin Sodium (Porcine) (Heparin) 5,000 units SC Q12 [facility] Last Admin: 09/06/17 09:11 Dose: Not Given Hydralazine HCl (Apresoline) 25 mg PO QID [facility] Last Admin: 09/06/17 09:59 Dose: 25 mg Hydromorphone HCl (Dilaudid) 2 mg IVP Q3 [facility] Last Admin: 09/06/17 10:01 Dose: 2 mg Dextrose (Dextrose 5% In Water 1000 Ml) 1,000 mls @ 0 mls/hr IV .Q0M PRN; Protocol; Per Protocol PRN Reason: Hypoglycemia Protocol Vancomycin/Sodium Chloride (Vancomycin 1 Gm/Ns 200 Ml) 1 gm in 200 mls @ 133 mls/hr IVPB MWF [facility] Stop: 09/10/17 19:01 Last Admin: 09/05/17 22:14 Dose: 133 mls/hr Insulin Glargine (Lantus) 25 unit SC [facility] Last Admin: 09/05/17 22:15 Dose: 25 unit Insulin Human Regular (Novolin R) 0 unit SC [facility] PRN Reason: Protocol Last Admin: 09/06/17 11:42 Dose: Not Given Metoclopramide HCl (Reglan) 10 mg PO DAILY [facility] Last Admin: 09/06/17 08:59 Dose: 10 mg Nifedipine (Procardia Xl) 30 mg PO DAILY [facility] Last Admin: 09/06/17 09:58 Dose: 30 mg Ondansetron HCl (Zofran Odt) 8 mg PO Q6 PRN PRN Reason: Nausea/Vomiting Pantoprazole Sodium (Protonix Ec Tab) 40 mg PO DAILY [facility] Last Admin: 09/06/17 09:07 Dose: 40 mg Sucralfate (Carafate Oral Susp) 1 gm PO [facility] Last Admin: 09/06/17 11:39 Dose: 1 gm - Labs Labs: 09/06/17 07:25 09/06/17 07:25 - Constitutional Appears: Well - Head Exam Head Exam: ATRAUMATIC, NORMAL INSPECTION, NORMOCEPHALIC - Eye Exam Eye Exam: EOMI, Normal appearance, PERRL Pupil Exam: NORMAL ACCOMODATION, PERRL - ENT Exam ENT Exam: Mucous Membranes Moist, Normal Exam - Neck Exam Neck Exam: Full ROM, Normal Inspection. absent: Lymphadenopathy - Respiratory Exam Respiratory Exam: Decreased Breath Sounds - Cardiovascular Exam Cardiovascular Exam: REGULAR RHYTHM, +S1, +S2 - GI/Abdominal Exam GI & Abdominal Exam: Soft, Diminished Bowel Sounds - Rectal Exam Rectal Exam: Deferred
[2017-09-06] MEDS ORDERED: DiphenhydrAMINE 50 mg/ml Inj IVP ONE (15:18)
[2017-09-06] MEDS: Epoetin Alfa 10,000 unit/ml Dialysis IV SCH (17:08)
--- NOTE | 2017-09-06 19:05 | CP.PCM.PN ---
Subjective - Date & Time of Evaluation Date of Evaluation: 09/06/17 Time of Evaluation: 15:00 - Subjective Subjective: SEEN ON RENAL F/U ON HD TODAY AND SAT OF THIS WEEK Objective - Vital Signs/Intake and Output Vital Signs (last 24 hours): Temp Pulse Resp BP Pulse Ox 97.4 F L 101 H 20 143/86 100 09/06/17 18:22 09/06/17 18:22 09/06/17 18:22 09/06/17 18:22 09/06/17 18:22 Intake and Output: 09/06/17 09/07/17 18:59 06:59 Intake Total 500 Balance 500 - Medications Medications: Current Medications Calcium Acetate (Phoslo) 667 mg PO TIDCC [facility] Last Admin: 09/06/17 17:34 Dose: Not Given Clonidine HCl (Catapres) 0.3 mg PO BID [facility] Last Admin: 09/06/17 18:26 Dose: 0.3 mg Dextrose (Dextrose 50% Inj) 0 ml IV STAT PRN; Protocol PRN Reason: Hypoglycemia Protocol Dextrose (Glutose 15) 0 gm PO ONCE PRN; Protocol PRN Reason: Hypoglycemia Protocol Diphenhydramine HCl (Benadryl) 25 mg IVP Q3 [facility] Last Admin: 09/06/17 16:45 Dose: 25 mg Diphenhydramine HCl (Benadryl) 25 mg IVP ONCE PRN PRN Reason: body itchiness Last Admin: 09/06/17 01:58 Dose: 25 mg Docusate Sodium (Colace) 100 mg PO TID [facility] Last Admin: 09/06/17 18:26 Dose: 100 mg Epoetin James (Procrit) 10,000 unit IV TTS [facility] Stop: 09/15/17 10:01 Last Admin: 09/06/17 17:08 Dose: 10,000 unit Ergocalciferol (Drisdol 50,000 Intl Units Cap) 1 cap PO QWK [facility] Last Admin: 09/04/17 10:04 Dose: 1 cap Gabapentin (Neurontin) 300 mg PO DAILY [facility] Last Admin: 09/06/17 09:07 Dose: 300 mg Glucagon (Glucagen Diagnostic Kit) 0 mg IM STAT PRN; Protocol PRN Reason: Hypoglycemia Protocol Heparin Sodium (Porcine) (Heparin) 5,000 units SC Q12 [facility] Last Admin: 09/06/17 09:11 Dose: Not Given Hydralazine HCl (Apresoline) 25 mg PO QID [facility] Last Admin: 09/06/17 18:26 Dose: 25 mg Hydromorphone HCl (Dilaudid) 2 mg IVP Q3 [facility] Last Admin: 09/06/17 16:44 Dose: 2 mg Dextrose (Dextrose 5% In Water 1000 Ml) 1,000 mls @ 0 mls/hr IV .Q0M PRN; Protocol; Per Protocol PRN Reason: Hypoglycemia Protocol Vancomycin/Sodium Chloride (Vancomycin 1 Gm/Ns 200 Ml) 1 gm in 200 mls @ 133 mls/hr IVPB MWF [facility] Stop: 09/10/17 19:01 Last Admin: 09/05/17 22:14 Dose: 133 mls/hr Insulin Glargine (Lantus) 25 unit SC [facility] Last Admin: 09/05/17 22:15 Dose: 25 unit Insulin Human Regular (Novolin R) 0 unit SC [facility] PRN Reason: Protocol Last Admin: 09/06/17 18:25 Dose: 1 unit Metoclopramide HCl (Reglan) 10 mg PO DAILY [facility] Last Admin: 09/06/17 08:59 Dose: 10 mg Nifedipine (Procardia Xl) 30 mg PO DAILY [facility] Last Admin: 09/06/17 09:58 Dose: 30 mg Ondansetron HCl (Zofran Odt) 8 mg PO Q6 PRN PRN Reason: Nausea/Vomiting Pantoprazole Sodium (Protonix Ec Tab) 40 mg PO DAILY [facility] Last Admin: 09/06/17 09:07 Dose: 40 mg Sucralfate (Carafate Oral Susp) [address] [facility] Last Admin: 09/06/17 17:32 Dose: Not Given - Labs Labs: 09/06/17 07:25 09/06/17 07:25 Assessment and Plan - Assessment and Plan (Free Text) Assessment: C/O CURRENT CARE
--- NOTE | 2017-09-06 19:23 | CP.PCM.PN ---
Subjective - Date & Time of Evaluation Date of Evaluation: 09/06/17 Time of Evaluation: 08:00 - Subjective Subjective: tolerating IV rx wounds still draining Objective - Vital Signs/Intake and Output Vital Signs (last 24 hours): Temp Pulse Resp BP Pulse Ox 97.4 F L 101 H 20 143/86 100 09/06/17 18:22 09/06/17 18:22 09/06/17 18:22 09/06/17 18:22 09/06/17 18:22 Intake and Output: 09/06/17 09/07/17 18:59 06:59 Intake Total 500 Balance 500 - Medications Medications: Current Medications Calcium Acetate (Phoslo) 667 mg PO TIDCC [facility] Last Admin: 09/06/17 17:34 Dose: Not Given Clonidine HCl (Catapres) 0.3 mg PO BID [facility] Last Admin: 09/06/17 18:26 Dose: 0.3 mg Dextrose (Dextrose 50% Inj) 0 ml IV STAT PRN; Protocol PRN Reason: Hypoglycemia Protocol Dextrose (Glutose 15) 0 gm PO ONCE PRN; Protocol PRN Reason: Hypoglycemia Protocol Diphenhydramine HCl (Benadryl) 25 mg IVP Q3 [facility] Last Admin: 09/06/17 16:45 Dose: 25 mg Diphenhydramine HCl (Benadryl) 25 mg IVP ONCE PRN PRN Reason: body itchiness Last Admin: 09/06/17 01:58 Dose: 25 mg Docusate Sodium (Colace) 100 mg PO TID [facility] Last Admin: 09/06/17 18:26 Dose: 100 mg Epoetin James (Procrit) 10,000 unit IV TTS [facility] Stop: 09/15/17 10:01 Last Admin: 09/06/17 17:08 Dose: 10,000 unit Ergocalciferol (Drisdol 50,000 Intl Units Cap) 1 cap PO QWK [facility] Last Admin: 09/04/17 10:04 Dose: 1 cap Gabapentin (Neurontin) 300 mg PO DAILY [facility] Last Admin: 09/06/17 09:07 Dose: 300 mg Glucagon (Glucagen Diagnostic Kit) 0 mg IM STAT PRN; Protocol PRN Reason: Hypoglycemia Protocol Heparin Sodium (Porcine) (Heparin) 5,000 units SC Q12 [facility] Last Admin: 09/06/17 09:11 Dose: Not Given Hydralazine HCl (Apresoline) 25 mg PO QID [facility] Last Admin: 09/06/17 18:26 Dose: 25 mg Hydromorphone HCl (Dilaudid) 2 mg IVP Q3 [facility] Last Admin: 09/06/17 16:44 Dose: 2 mg Dextrose (Dextrose 5% In Water 1000 Ml) 1,000 mls @ 0 mls/hr IV .Q0M PRN; Protocol; Per Protocol PRN Reason: Hypoglycemia Protocol Vancomycin/Sodium Chloride (Vancomycin 1 Gm/Ns 200 Ml) 1 gm in 200 mls @ 133 mls/hr IVPB MWF [facility] Stop: 09/10/17 19:01 Last Admin: 09/05/17 22:14 Dose: 133 mls/hr Insulin Glargine (Lantus) 25 unit SC [facility] Last Admin: 09/05/17 22:15 Dose: 25 unit Insulin Human Regular (Novolin R) 0 unit SC [facility] PRN Reason: Protocol Last Admin: 09/06/17 18:25 Dose: 1 unit Metoclopramide HCl (Reglan) 10 mg PO DAILY [facility] Last Admin: 09/06/17 08:59 Dose: 10 mg Nifedipine (Procardia Xl) 30 mg PO DAILY [facility] Last Admin: 09/06/17 09:58 Dose: 30 mg Ondansetron HCl (Zofran Odt) 8 mg PO Q6 PRN PRN Reason: Nausea/Vomiting Pantoprazole Sodium (Protonix Ec Tab) 40 mg PO DAILY [facility] Last Admin: 09/06/17 09:07 Dose: 40 mg Sucralfate (Carafate Oral Susp) 1 gm PO [facility] Last Admin: 09/06/17 17:32 Dose: Not Given - Labs Labs: 09/06/17 07:25 09/06/17 07:25 Assessment and Plan (1) Cellulitis and abscess of foot Status: Acute (2) ESRD (end stage renal disease) on dialysis Status: Acute (3) History of diabetic gastroparesis Status: Acute (4) Accelerated essential hypertension Status: Acute
[2017-09-06] MEDS: (Lantus) Insulin Glargine, Recombinant SC SCH (21:45)
[2017-09-07] MEDS: DiphenhydrAMINE 50 mg/ml Inj IVP SCH ×8 (01:11→22:27)
[2017-09-07] MEDS: Sucralfate 1 gm/10 ml Oral Susp UD PO SCH ×4 (07:15→22:26)
[2017-09-07 07:59] LABS: BASO # 0.1 K/uL (0.0-0.2); BASO % 0.9 % (0.0-2.0); EOS # 1.1 K/uL (0.0-0.7); HEMOGLOBIN 8.6 g/dL (11.0-16.0); LYMPH # 1.7 K/uL (1.0-4.3); LYMPH % 22.9 % (20.0-40.0); MEAN CELL VOLUME 96.7 fL (81.0-99.0); MEAN CORPUSCULAR HEMOGLOBIN 33.3 pg (27.0-31.0); MEAN CORPUSCULAR HGB CONC 34.5 g/dL (33.0-37.0); MEAN PLATELET VOLUME 7.8 fL (7.2-11.7); MONO # 0.6 K/uL (0.0-0.8); MONO % 7.7 % (0.0-10.0); NEUT # 4.1 K/uL (1.8-7.0); NEUT % 54.5 % (50.0-75.0); NRBC % 0.2 % (0.0-2.0); RBC 2.58 Mil/uL (3.80-5.20); RED CELL DISTRIBUTION WIDTH 16.8 % (11.5-14.5); WHITE BLOOD COUNT 7.5 K/uL (4.8-10.8)
[2017-09-07 08:09] LABS: ALB/GLOB RATIO 1.1 (1.0-2.1); ALBUMIN 3.8 g/dL (3.5-5.0); CALCIUM 7.7 mg/dl (8.6-10.4)
[2017-09-07] MEDS: (Novolin R) Insulin Human Regular 100 units/ml vial SC SCH ×4 (08:09→21:21)
[2017-09-07] MEDS: Pantoprazole 40 mg EC Tab PO SCH (10:16)
[2017-09-07] MEDS: NIFEdipine 30 mg ER Tab PO SCH (10:18)
[2017-09-07] MEDS: Vancomycin 1 gm/NS 200 ml 1 GM/200 ML BAG IVPB SCH (10:18)
[2017-09-07] MEDS ORDERED: Iodixanol 320 MG/ML 100 ML BOTTLE IV ONE (12:07)
[2017-09-07] MEDS ORDERED: Lidocaine 2% Inj (20ml) ONE (12:07)
[2017-09-07] MEDS ORDERED: Midazolam 2 MG/2 ML VIAL ONE (12:07)
--- NOTE | 2017-09-07 12:31 | PCM.SURG1 ---
Surgeon's Initial Post Op Note - Surgeon's Notes Surgeon: Diogo Hill MD Desolderer: NONE Type of Anesthesia: Local Pre-Operative Diagnosis: Increase bleeding at dialysis, ESRD Operative Findings: Left AV fistulagram showed 40 % subclavian vein stenosis. Post-Operative Diagnosis: ESRD Operation Performed: Left arm AV fistulagram. WATER USE INSPECTOR subclavian vein stenosis with a 10 mm WATER USE INSPECTOR. Specimen/Specimens Removed: none Estimated Blood Loss: EBL {In ML}: 5 Blood Products Given: N/A Drains Used: No Drains Post-Op Condition: Fair Date of Surgery/Procedure: 09/07/17 Time of Surgery/Procedure: 12:25
--- NOTE | 2017-09-07 21:49 | CP.PCM.PN ---
Subjective - Date & Time of Evaluation Date of Evaluation: 09/07/17 Time of Evaluation: 16:00 - Subjective Subjective: SEEN ON RENAL F/U S/P SUCCESFUL HD FISTULOGRAM AND ANGIOPLASTY HD IN AM C/O CURRENT CARE Objective - Vital Signs/Intake and Output Vital Signs (last 24 hours): Temp Pulse Resp BP Pulse Ox 98 F 86 20 173/100 H 100 09/07/17 16:51 09/07/17 18:09 09/07/17 16:51 09/07/17 18:09 09/07/17 16:51 Intake and Output: 09/07/17 09/08/17 18:59 06:59 Intake Total 200 Balance 200 - Medications Medications: Current Medications Calcium Acetate (Phoslo) 667 mg PO TIDCC [facility] Last Admin: 09/07/17 16:15 Dose: 667 mg Clonidine HCl (Catapres) 0.3 mg PO BID [facility] Last Admin: 09/07/17 18:08 Dose: 0.3 mg Dextrose (Dextrose 50% Inj) 0 ml IV STAT PRN; Protocol PRN Reason: Hypoglycemia Protocol Dextrose (Glutose 15) 0 gm PO ONCE PRN; Protocol PRN Reason: Hypoglycemia Protocol Diphenhydramine HCl (Benadryl) 25 mg IVP Q3 [facility] Last Admin: 09/07/17 19:18 Dose: 25 mg Diphenhydramine HCl (Benadryl) 25 mg IVP ONCE PRN PRN Reason: body itchiness Last Admin: 09/06/17 01:58 Dose: 25 mg Docusate Sodium (Colace) 100 mg PO TID [facility] Last Admin: 09/07/17 18:08 Dose: 100 mg Epoetin James (Procrit) 10,000 unit IV TTS [facility] Stop: 09/15/17 10:01 Last Admin: 09/06/17 17:08 Dose: 10,000 unit Ergocalciferol (Drisdol 50,000 Intl Units Cap) 1 cap PO QWK [facility] Last Admin: 09/04/17 10:04 Dose: 1 cap Gabapentin (Neurontin) 300 mg PO DAILY [facility] Last Admin: 09/07/17 10:15 Dose: 300 mg Glucagon (Glucagen Diagnostic Kit) 0 mg IM STAT PRN; Protocol PRN Reason: Hypoglycemia Protocol Hydralazine HCl (Apresoline) 25 mg PO QID [facility] Last Admin: 09/07/17 18:08 Dose: 25 mg Hydromorphone HCl (Dilaudid) 2 mg IVP Q3 [facility] Last Admin: 09/07/17 19:18 Dose: 2 mg Vancomycin/Sodium Chloride (Vancomycin 1 Gm/Ns 200 Ml) 1 gm in 200 mls @ 133 mls/hr IVPB MWF [facility] Stop: 09/10/17 19:01 Last Admin: 09/07/17 10:18 Dose: 133 mls/hr Insulin Glargine (Lantus) 25 unit SC [facility] Last Admin: 09/06/17 21:45 Dose: Not Given Insulin Human Regular (Novolin R) 0 unit SC [facility] PRN Reason: Protocol Last Admin: 09/07/17 21:21 Dose: Not Given Metoclopramide HCl (Reglan) 10 mg PO DAILY [facility] Last Admin: 09/07/17 10:16 Dose: 10 mg Nifedipine (Procardia Xl) 30 mg PO DAILY [facility] Last Admin: 09/07/17 10:18 Dose: 30 mg Ondansetron HCl (Zofran Odt) 8 mg PO Q6 PRN PRN Reason: Nausea/Vomiting Pantoprazole Sodium (Protonix Ec Tab) 40 mg PO DAILY [facility] Last Admin: 09/07/17 10:16 Dose: 40 mg Sucralfate (Carafate Oral Susp) 1 gm PO [facility] Last Admin: 09/07/17 16:14 Dose: 1 gm - Labs Labs: 09/07/17 07:14 09/07/17 07:14
--- NOTE | 2017-09-07 21:56 | CP.PCM.PN ---
Subjective - Date & Time of Evaluation Date of Evaluation: 09/07/17 Time of Evaluation: 08:40 - Subjective Subjective: clinicallly same Objective - Vital Signs/Intake and Output Vital Signs (last 24 hours): Temp Pulse Resp BP Pulse Ox 98 F 86 20 173/100 H 100 09/07/17 16:51 09/07/17 18:09 09/07/17 16:51 09/07/17 18:09 09/07/17 16:51 Intake and Output: 09/07/17 09/08/17 18:59 06:59 Intake Total 200 Balance 200 - Medications Medications: Current Medications Calcium Acetate (Phoslo) 667 mg PO TIDCC [facility] Last Admin: 09/07/17 16:15 Dose: 667 mg Clonidine HCl (Catapres) 0.3 mg PO BID [facility] Last Admin: 09/07/17 18:08 Dose: 0.3 mg Dextrose (Dextrose 50% Inj) 0 ml IV STAT PRN; Protocol PRN Reason: Hypoglycemia Protocol Dextrose (Glutose 15) 0 gm PO ONCE PRN; Protocol PRN Reason: Hypoglycemia Protocol Diphenhydramine HCl (Benadryl) 25 mg IVP Q3 [facility] Last Admin: 09/07/17 19:18 Dose: 25 mg Diphenhydramine HCl (Benadryl) 25 mg IVP ONCE PRN PRN Reason: body itchiness Last Admin: 09/06/17 01:58 Dose: 25 mg Docusate Sodium (Colace) 100 mg PO TID [facility] Last Admin: 09/07/17 18:08 Dose: 100 mg Epoetin James (Procrit) 10,000 unit IV TTS [facility] Stop: 09/15/17 10:01 Last Admin: 09/06/17 17:08 Dose: 10,000 unit Ergocalciferol (Drisdol 50,000 Intl Units Cap) 1 cap PO QWK [facility] Last Admin: 09/04/17 10:04 Dose: 1 cap Gabapentin (Neurontin) 300 mg PO DAILY [facility] Last Admin: 09/07/17 10:15 Dose: 300 mg Glucagon (Glucagen Diagnostic Kit) 0 mg IM STAT PRN; Protocol PRN Reason: Hypoglycemia Protocol Hydralazine HCl (Apresoline) 25 mg PO QID [facility] Last Admin: 09/07/17 18:08 Dose: 25 mg Hydromorphone HCl (Dilaudid) 2 mg IVP Q3 [facility] Last Admin: 09/07/17 19:18 Dose: 2 mg Vancomycin/Sodium Chloride (Vancomycin 1 Gm/Ns 200 Ml) 1 gm in 200 mls @ 133 mls/hr IVPB MWF [facility] Stop: 09/10/17 19:01 Last Admin: 09/07/17 10:18 Dose: 133 mls/hr Insulin Glargine (Lantus) 25 unit SC [facility] Last Admin: 09/06/17 21:45 Dose: Not Given Insulin Human Regular (Novolin R) 0 unit SC [facility] PRN Reason: Protocol Last Admin: 09/07/17 21:21 Dose: Not Given Metoclopramide HCl (Reglan) 10 mg PO DAILY [facility] Last Admin: 09/07/17 10:16 Dose: 10 mg Nifedipine (Procardia Xl) 30 mg PO DAILY [facility] Last Admin: 09/07/17 10:18 Dose: 30 mg Ondansetron HCl (Zofran Odt) 8 mg PO Q6 PRN PRN Reason: Nausea/Vomiting Pantoprazole Sodium (Protonix Ec Tab) 40 mg PO DAILY [facility] Last Admin: 09/07/17 10:16 Dose: 40 mg Sucralfate (Carafate Oral Susp) 1 gm PO ACHS [facility] Last Admin: 09/07/17 16:14 Dose: 1 gm - Labs Labs: 09/07/17 07:14 09/07/17 07:14
[2017-09-07] MEDS: (Lantus) Insulin Glargine, Recombinant SC SCH (22:25)
[2017-09-08] MEDS: DiphenhydrAMINE 50 mg/ml Inj IVP SCH ×8 (00:03→22:11)
[2017-09-08] MEDS: (Novolin R) Insulin Human Regular 100 units/ml vial SC SCH ×4 (04:45→22:05)
[2017-09-08] MEDS: Sucralfate 1 gm/10 ml Oral Susp UD PO SCH ×4 (08:46→22:11)
[2017-09-08] MEDS: Pantoprazole 40 mg EC Tab PO SCH (09:38)
[2017-09-08] MEDS: NIFEdipine 30 mg ER Tab PO SCH (10:39)
--- NOTE | 2017-09-08 14:58 | CP.PCM.PN ---
Subjective - Date & Time of Evaluation Date of Evaluation: 09/08/17 Time of Evaluation: 08:40 - Subjective Subjective: clinically same Objective - Vital Signs/Intake and Output Vital Signs (last 24 hours): Temp Pulse Resp BP Pulse Ox 97.5 F L 91 H 15 124/87 98 09/08/17 08:00 09/08/17 14:45 09/08/17 14:40 09/08/17 14:45 09/08/17 14:40 - Medications Medications: Current Medications Calcium Acetate (Phoslo) 667 mg PO TIDCC [facility] Last Admin: 09/08/17 12:51 Dose: 667 mg Clonidine HCl (Catapres) 0.3 mg PO BID [facility] Last Admin: 09/08/17 10:44 Dose: 0.3 mg Dextrose (Dextrose 50% Inj) 0 ml IV STAT PRN; Protocol PRN Reason: Hypoglycemia Protocol Dextrose (Glutose 15) 0 gm PO ONCE PRN; Protocol PRN Reason: Hypoglycemia Protocol Diphenhydramine HCl (Benadryl) 25 mg IVP Q3 [facility] Last Admin: 09/08/17 12:49 Dose: 25 mg Diphenhydramine HCl (Benadryl) 25 mg IVP ONCE PRN PRN Reason: body itchiness Last Admin: 09/06/17 01:58 Dose: 25 mg Docusate Sodium (Colace) 100 mg PO TID [facility] Last Admin: 09/08/17 09:38 Dose: 100 mg Epoetin James (Procrit) 10,000 unit IV TTS [facility] Stop: 09/15/17 10:01 Last Admin: 09/06/17 17:08 Dose: 10,000 unit Ergocalciferol (Drisdol 50,000 Intl Units Cap) 1 cap PO QWK [facility] Last Admin: 09/04/17 10:04 Dose: 1 cap Gabapentin (Neurontin) 300 mg PO DAILY [facility] Last Admin: 09/08/17 09:38 Dose: 300 mg Glucagon (Glucagen Diagnostic Kit) 0 mg IM STAT PRN; Protocol PRN Reason: Hypoglycemia Protocol Hydralazine HCl (Apresoline) 25 mg PO QID [facility] Last Admin: 09/08/17 10:39 Dose: 25 mg Hydromorphone HCl (Dilaudid) 2 mg IVP Q3 [facility] Last Admin: 09/08/17 12:48 Dose: 2 mg Vancomycin/Sodium Chloride (Vancomycin 1 Gm/Ns 200 Ml) 1 gm in 200 mls @ 133 mls/hr IVPB MWF [facility] Stop: 09/10/17 19:01 Last Admin: 09/07/17 10:18 Dose: 133 mls/hr Insulin Glargine (Lantus) 25 unit SC [facility] Last Admin: 09/07/17 22:25 Dose: 25 unit Insulin Human Regular (Novolin R) 0 unit SC [facility] PRN Reason: Protocol Last Admin: 09/08/17 12:50 Dose: 4 unit Metoclopramide HCl (Reglan) 10 mg PO DAILY [facility] Last Admin: 09/08/17 09:38 Dose: 10 mg Nifedipine (Procardia Xl) 30 mg PO DAILY [facility] Last Admin: 09/08/17 10:39 Dose: 30 mg Ondansetron HCl (Zofran Odt) 8 mg PO Q6 PRN PRN Reason: Nausea/Vomiting Pantoprazole Sodium (Protonix Ec Tab) 40 mg PO DAILY [facility] Last Admin: 09/08/17 09:38 Dose: 40 mg Sucralfate (Carafate Oral Susp) 1 gm PO [facility] Last Admin: 09/08/17 12:49 Dose: 1 gm - Labs Labs: 09/07/17 07:14 09/07/17 07:14 - Constitutional Appears: Well - Head Exam Head Exam: ATRAUMATIC, NORMAL INSPECTION, NORMOCEPHALIC - Eye Exam Eye Exam: EOMI, Normal appearance, PERRL Pupil Exam: NORMAL ACCOMODATION, PERRL - ENT Exam ENT Exam: Mucous Membranes Moist, Normal Exam - Neck Exam Neck Exam: Full ROM, Normal Inspection. absent: Lymphadenopathy - Respiratory Exam Respiratory Exam: Decreased Breath Sounds - Cardiovascular Exam Cardiovascular Exam: REGULAR RHYTHM, +S1, +S2 - GI/Abdominal Exam GI & Abdominal Exam: Soft, Diminished Bowel Sounds - Rectal Exam Rectal Exam: Deferred
[2017-09-08] MEDS: Epoetin Alfa 10,000 unit/ml Dialysis IV SCH (16:02)
[2017-09-08] MEDS: DiphenhydrAMINE 50 mg/ml Inj IVP PRN (16:40)
--- NOTE | 2017-09-08 18:15 | CP.PCM.PN ---
Subjective - Date & Time of Evaluation Date of Evaluation: 09/08/17 Time of Evaluation: 16:00 - Subjective Subjective: SEEN ON RENAL F/U SEEN ON HD FEELS IMPROVED Objective - Vital Signs/Intake and Output Vital Signs (last 24 hours): Temp Pulse Resp BP Pulse Ox 97.5 F L 95 H 15 148/50 L 98 09/08/17 08:00 09/08/17 17:40 09/08/17 14:40 09/08/17 17:40 09/08/17 14:40 Intake and Output: 09/08/17 09/08/17 06:59 18:59 Intake Total 400 Balance 400 - Medications Medications: Current Medications Calcium Acetate (Phoslo) [address] [facility] Last Admin: 09/08/17 12:51 Dose: 667 mg Clonidine HCl (Catapres) 0.[address] [facility] Last Admin: 09/08/17 10:44 Dose: 0.3 mg Dextrose (Dextrose 50% Inj) 0 ml IV STAT PRN; Protocol PRN Reason: Hypoglycemia Protocol Dextrose (Glutose 15) 0 gm PO ONCE PRN; Protocol PRN Reason: Hypoglycemia Protocol Diphenhydramine HCl (Benadryl) [address] [facility] Last Admin: 09/08/17 15:57 Dose: 25 mg Diphenhydramine HCl (Benadryl) 25 mg IVP ONCE PRN PRN Reason: body itchiness Last Admin: 09/08/17 16:40 Dose: 25 mg Docusate Sodium (Colace) [address] [facility] Last Admin: 09/08/17 14:00 Dose: Not Given Epoetin James (Procrit) 10,[address] [facility] Stop: 09/15/17 10:01 Last Admin: 09/08/17 16:02 Dose: 10,000 unit Ergocalciferol (Drisdol 50,000 Intl Units Cap) [address] [facility] Last Admin: 09/04/17 10:04 Dose: 1 cap Gabapentin (Neurontin) [address] [facility] Last Admin: 09/08/17 09:38 Dose: 300 mg Glucagon (Glucagen Diagnostic Kit) 0 mg IM STAT PRN; Protocol PRN Reason: Hypoglycemia Protocol Hydralazine HCl (Apresoline) [address] [facility] Last Admin: 09/08/17 14:00 Dose: Not Given Hydromorphone HCl (Dilaudid) [address] [facility] Last Admin: 09/08/17 15:58 Dose: 2 mg Vancomycin/Sodium Chloride (Vancomycin 1 Gm/Ns 200 Ml) 1 gm in 200 mls @ 133 mls/hr IVPB MWF [facility] Stop: 09/10/17 19:01 Last Admin: 09/07/17 10:18 Dose: 133 mls/hr Insulin Glargine (Lantus) [address] [facility] Last Admin: 09/07/17 22:25 Dose: 25 unit Insulin Human Regular (Novolin R) 0 unit [facility] PRN Reason: Protocol Last Admin: 09/08/17 12:50 Dose: 4 unit Metoclopramide HCl (Reglan) [address] [facility] Last Admin: 09/08/17 09:38 Dose: 10 mg Nifedipine (Procardia Xl) [address] [facility] Last Admin: 09/08/17 10:39 Dose: 30 mg Ondansetron HCl (Zofran Odt) 8 mg PO Q6 PRN PRN Reason: Nausea/Vomiting Pantoprazole Sodium (Protonix Ec Tab) [address] [facility] Last Admin: 09/08/17 09:38 Dose: 40 mg Sucralfate (Carafate Oral Susp) [address] [facility] Last Admin: 09/08/17 16:28 Dose: Not Given - Labs Labs: 09/07/17 07:14 09/07/17 07:14 Assessment and Plan - Assessment and Plan (Free Text) Assessment: C/O CURRENT CARE ON HD M W F AND SAT
[2017-09-08] MEDS: (Lantus) Insulin Glargine, Recombinant SC SCH (22:11)
[2017-09-09] MEDS: DiphenhydrAMINE 50 mg/ml Inj IVP SCH ×8 (00:42→23:05)
[2017-09-09 07:12] LABS: BASO # 0.1 K/uL (0.0-0.2); BASO % 1.2 % (0.0-2.0); EOS # 0.7 K/uL (0.0-0.7); EOS % 10.4 % (0.0-4.0); HEMOGLOBIN 9.3 g/dL (11.0-16.0); LYMPH # 1.6 K/uL (1.0-4.3); MEAN CELL VOLUME 96.5 fL (81.0-99.0); MEAN CORPUSCULAR HGB CONC 33.2 g/dL (33.0-37.0); MEAN PLATELET VOLUME 7.5 fL (7.2-11.7); MONO # 0.6 K/uL (0.0-0.8); MONO % 8.2 % (0.0-10.0); NEUT # 3.9 K/uL (1.8-7.0); NEUT % 57.2 % (50.0-75.0); NRBC % 0.2 % (0.0-2.0); RBC 2.9 Mil/uL (3.80-5.20); RED CELL DISTRIBUTION WIDTH 17.6 % (11.5-14.5); WHITE BLOOD COUNT 6.9 K/uL (4.8-10.8)
[2017-09-09] MEDS: (Novolin R) Insulin Human Regular 100 units/ml vial SC SCH ×4 (07:22→22:54)
[2017-09-09] MEDS: Sucralfate 1 gm/10 ml Oral Susp UD PO SCH ×4 (07:26→23:08)
[2017-09-09 07:44] LABS: ALB/GLOB RATIO 1.1 (1.0-2.1); ALBUMIN 4.1 g/dL (3.5-5.0); CALCIUM 7.6 mg/dl (8.6-10.4); MAGNESIUM 2.1 mg/dL (1.6-2.3)
[2017-09-09] MEDS ORDERED: DiphenhydrAMINE 50 mg/ml Inj IVP ONE (08:00)
[2017-09-09] MEDS: NIFEdipine 30 mg ER Tab PO SCH (09:00)
[2017-09-09] MEDS: Pantoprazole 40 mg EC Tab PO SCH (09:01)
--- NOTE | 2017-09-09 16:19 | CP.PCM.PN ---
Subjective - Date & Time of Evaluation Date of Evaluation: 09/09/17 Time of Evaluation: 09:00 - Subjective Subjective: IV Vanvco renewed denies fever c/o foot pain Objective - Vital Signs/Intake and Output Vital Signs (last 24 hours): Temp Pulse Resp BP Pulse Ox 97.3 F L 98 H 20 174/99 H 99 09/09/17 09:14 09/09/17 09:14 09/09/17 09:14 09/09/17 09:14 09/09/17 09:14 Intake and Output: 09/09/17 09/09/17 06:59 18:59 Intake Total 400 150 Balance 400 150 - Medications Medications: Current Medications Calcium Acetate (Phoslo) 667 mg PO TIDCC [facility] Last Admin: 09/09/17 12:33 Dose: 667 mg Clonidine HCl (Catapres) 0.3 mg PO BID [facility] Last Admin: 09/09/17 10:22 Dose: 0.3 mg Dextrose (Dextrose 50% Inj) 0 ml IV STAT PRN; Protocol PRN Reason: Hypoglycemia Protocol Dextrose (Glutose 15) 0 gm PO ONCE PRN; Protocol PRN Reason: Hypoglycemia Protocol Diphenhydramine HCl (Benadryl) 25 mg IVP Q3 [facility] Last Admin: 09/09/17 12:33 Dose: 25 mg Diphenhydramine HCl (Benadryl) 25 mg IVP ONCE PRN PRN Reason: body itchiness Last Admin: 09/08/17 16:40 Dose: 25 mg Docusate Sodium (Colace) 100 mg PO TID [facility] Last Admin: 09/09/17 14:37 Dose: 100 mg Epoetin James (Procrit) 10,000 unit IV TTS [facility] Stop: 09/15/17 10:01 Last Admin: 09/08/17 16:02 Dose: 10,000 unit Ergocalciferol (Drisdol 50,000 Intl Units Cap) 1 cap PO QWK [facility] Last Admin: 09/04/17 10:04 Dose: 1 cap Gabapentin (Neurontin) 300 mg PO DAILY [facility] Last Admin: 09/09/17 09:01 Dose: 300 mg Glucagon (Glucagen Diagnostic Kit) 0 mg IM STAT PRN; Protocol PRN Reason: Hypoglycemia Protocol Hydralazine HCl (Apresoline) 25 mg PO QID [facility] Last Admin: 09/09/17 14:37 Dose: 25 mg Hydromorphone HCl (Dilaudid) 2 mg IVP Q3 [facility] Last Admin: 09/09/17 12:34 Dose: 2 mg Vancomycin/Sodium Chloride (Vancomycin 1 Gm/Ns 200 Ml) 1 gm in 200 mls @ 133 mls/hr IVPB MWF [facility] Stop: 09/10/17 19:01 Last Admin: 09/07/17 10:18 Dose: 133 mls/hr Insulin Glargine (Lantus) 25 unit SC [facility] Last Admin: 09/08/17 22:11 Dose: 25 unit Insulin Human Regular (Novolin R) 0 unit SC [facility] PRN Reason: Protocol Last Admin: 09/09/17 12:32 Dose: 3 unit Metoclopramide HCl (Reglan) 10 mg PO DAILY [facility] Last Admin: 09/09/17 09:01 Dose: 10 mg Nifedipine (Procardia Xl) 30 mg PO DAILY [facility] Last Admin: 09/09/17 09:00 Dose: 30 mg Ondansetron HCl (Zofran Odt) 8 mg PO Q6 PRN PRN Reason: Nausea/Vomiting Pantoprazole Sodium (Protonix Ec Tab) 40 mg PO DAILY [facility] Last Admin: 09/09/17 09:01 Dose: 40 mg Sucralfate (Carafate Oral Susp) 1 gm PO [facility] Last Admin: 09/09/17 12:33 Dose: 1 gm - Labs Labs: 09/09/17 07:02 09/09/17 07:02 - Constitutional Appears: Non-toxic, Chronically Ill - Head Exam Head Exam: NORMOCEPHALIC - Eye Exam Eye Exam: PERRL - ENT Exam ENT Exam: Mucous Membranes Dry - Neck Exam Neck Exam: absent: Lymphadenopathy - Respiratory Exam Respiratory Exam: Decreased Breath Sounds, Clear to Ausculation Bilateral - Cardiovascular Exam Cardiovascular Exam: REGULAR RHYTHM - GI/Abdominal Exam GI & Abdominal Exam: Distended, Soft - Rectal Exam Rectal Exam: Deferred Assessment and Plan (1) Cellulitis and abscess of foot Status: Acute (2) ESRD (end stage renal disease) on dialysis Status: Acute (3) History of diabetic gastroparesis Status: Acute (4) Accelerated essential hypertension Status: Acute - Assessment and Plan (Free Text) Assessment: lea Petty
--- NOTE | 2017-09-09 17:57 | CP.PCM.PN ---
Subjective - Date & Time of Evaluation Date of Evaluation: 09/09/17 Time of Evaluation: 08:40 - Subjective Subjective: clinically same Objective - Vital Signs/Intake and Output Vital Signs (last 24 hours): Temp Pulse Resp BP Pulse Ox 97.3 F L 98 H 20 174/99 H 99 09/09/17 09:14 09/09/17 09:14 09/09/17 09:14 09/09/17 09:14 09/09/17 09:14 Intake and Output: 09/09/17 09/09/17 06:59 18:59 Intake Total 400 150 Balance 400 150 - Medications Medications: Current Medications Calcium Acetate (Phoslo) 667 mg PO TIDCC [facility] Last Admin: 09/09/17 12:33 Dose: 667 mg Clonidine HCl (Catapres) 0.3 mg PO BID [facility] Last Admin: 09/09/17 10:22 Dose: 0.3 mg Dextrose (Dextrose 50% Inj) 0 ml IV STAT PRN; Protocol PRN Reason: Hypoglycemia Protocol Dextrose (Glutose 15) 0 gm PO ONCE PRN; Protocol PRN Reason: Hypoglycemia Protocol Diphenhydramine HCl (Benadryl) 25 mg IVP Q3 [facility] Last Admin: 09/09/17 16:33 Dose: 25 mg Diphenhydramine HCl (Benadryl) 25 mg IVP ONCE PRN PRN Reason: body itchiness Last Admin: 09/08/17 16:40 Dose: 25 mg Docusate Sodium (Colace) 100 mg PO TID [facility] Last Admin: 09/09/17 14:37 Dose: 100 mg Epoetin James (Procrit) 10,000 unit IV TTS [facility] Stop: 09/15/17 10:01 Last Admin: 09/08/17 16:02 Dose: 10,000 unit Ergocalciferol (Drisdol 50,000 Intl Units Cap) 1 cap PO QWK [facility] Last Admin: 09/04/17 10:04 Dose: 1 cap Gabapentin (Neurontin) 300 mg PO DAILY [facility] Last Admin: 09/09/17 09:01 Dose: 300 mg Glucagon (Glucagen Diagnostic Kit) 0 mg IM STAT PRN; Protocol PRN Reason: Hypoglycemia Protocol Hydralazine HCl (Apresoline) 25 mg PO QID [facility] Last Admin: 09/09/17 14:37 Dose: 25 mg Hydromorphone HCl (Dilaudid) 2 mg IVP Q3 [facility] Last Admin: 09/09/17 16:33 Dose: 2 mg Vancomycin/Sodium Chloride (Vancomycin 1 Gm/Ns 200 Ml) 1 gm in 200 mls @ 133 mls/hr IVPB MWF [facility] Stop: 09/10/17 19:01 Last Admin: 09/07/17 10:18 Dose: 133 mls/hr Insulin Glargine (Lantus) 25 unit SC [facility] Last Admin: 09/08/17 22:11 Dose: 25 unit Insulin Human Regular (Novolin R) 0 unit SC [facility] PRN Reason: Protocol Last Admin: 09/09/17 12:32 Dose: 3 unit Metoclopramide HCl (Reglan) 10 mg PO DAILY [facility] Last Admin: 09/09/17 09:01 Dose: 10 mg Nifedipine (Procardia Xl) 30 mg PO DAILY [facility] Last Admin: 09/09/17 09:00 Dose: 30 mg Ondansetron HCl (Zofran Odt) 8 mg PO Q6 PRN PRN Reason: Nausea/Vomiting Pantoprazole Sodium (Protonix Ec Tab) 40 mg PO DAILY [facility] Last Admin: 09/09/17 09:01 Dose: 40 mg Sucralfate (Carafate Oral Susp) 1 gm PO [facility] Last Admin: 09/09/17 16:32 Dose: 1 gm - Labs Labs: 09/09/17 07:02 09/09/17 07:02 - Constitutional Appears: Well - Head Exam Head Exam: ATRAUMATIC, NORMAL INSPECTION, NORMOCEPHALIC - Eye Exam Eye Exam: EOMI, Normal appearance, PERRL Pupil Exam: NORMAL ACCOMODATION, PERRL - ENT Exam ENT Exam: Mucous Membranes Moist, Normal Exam - Neck Exam Neck Exam: Full ROM, Normal Inspection. absent: Lymphadenopathy - Respiratory Exam Respiratory Exam: Decreased Breath Sounds - Cardiovascular Exam Cardiovascular Exam: REGULAR RHYTHM, +S1, +S2 - GI/Abdominal Exam GI & Abdominal Exam: Soft, Diminished Bowel Sounds - Rectal Exam Rectal Exam: Deferred
[2017-09-09] MEDS: (Lantus) Insulin Glargine, Recombinant SC SCH (23:12)
[2017-09-10] MEDS: DiphenhydrAMINE 50 mg/ml Inj IVP SCH ×8 (01:38→23:04)
[2017-09-10] MEDS: (Novolin R) Insulin Human Regular 100 units/ml vial SC SCH ×4 (07:48→22:00)
[2017-09-10 08:00] LABS: BASO # 0.1 K/uL (0.0-0.2); BASO % 1.2 % (0.0-2.0); EOS # 0.9 K/uL (0.0-0.7); EOS % 13.7 % (0.0-4.0); LYMPH # 1.7 K/uL (1.0-4.3); LYMPH % 28.1 % (20.0-40.0); MEAN CELL VOLUME 96.6 fL (81.0-99.0); MEAN CORPUSCULAR HEMOGLOBIN 31.9 pg (27.0-31.0); MEAN CORPUSCULAR HGB CONC 33.1 g/dL (33.0-37.0); MEAN PLATELET VOLUME 7.8 fL (7.2-11.7); MONO # 0.6 K/uL (0.0-0.8); MONO % 9.1 % (0.0-10.0); NEUT % 47.9 % (50.0-75.0); NRBC % 0.1 % (0.0-2.0); RBC 2.81 Mil/uL (3.80-5.20); RED CELL DISTRIBUTION WIDTH 18.3 % (11.5-14.5); WHITE BLOOD COUNT 6.2 K/uL (4.8-10.8)
[2017-09-10 08:31] LABS: ALB/GLOB RATIO 1.2 (1.0-2.1); ALBUMIN 4.1 g/dL (3.5-5.0); CALCIUM 7.3 mg/dl (8.6-10.4); MAGNESIUM 2.1 mg/dL (1.6-2.3)
[2017-09-10] MEDS: Pantoprazole 40 mg EC Tab PO SCH (10:14)
[2017-09-10] MEDS: Sucralfate 1 gm/10 ml Oral Susp UD PO SCH ×4 (10:14→23:03)
[2017-09-10] MEDS: NIFEdipine 30 mg ER Tab PO SCH (10:15)
--- NOTE | 2017-09-10 10:47 | CP.PCM.PN ---
Subjective - Date & Time of Evaluation Date of Evaluation: 09/10/17 Time of Evaluation: 13:30 - Subjective Subjective: PGY-[address] Edilia Sexton: Patient seen and examined in no acute distress. Patient states that she has painful tender rashes on her right lower extremity. Patient feels down because she is always in the hospital. She denies chest pain, subjective fevers or chills, nausea, vomiting, diarrhea or constipation at this time. Objective - Vital Signs/Intake and Output Vital Signs (last 24 hours): Temp Pulse Resp BP Pulse Ox 98.1 F 93 H 22 196/103 H 98 09/09/17 16:00 09/10/17 10:13 09/09/17 16:00 09/10/17 10:13 09/09/17 16:00 - Medications Medications: Current Medications Calcium Acetate (Phoslo) 667 mg PO TIDCC [facility] Last Admin: 09/10/17 10:15 Dose: 667 mg Clonidine HCl (Catapres) 0.3 mg PO BID [facility] Last Admin: 09/10/17 10:15 Dose: 0.3 mg Dextrose (Dextrose 50% Inj) 0 ml IV STAT PRN; Protocol PRN Reason: Hypoglycemia Protocol Dextrose (Glutose 15) 0 gm PO ONCE PRN; Protocol PRN Reason: Hypoglycemia Protocol Last Admin: 09/10/17 06:35 Dose: 15 gm Diphenhydramine HCl (Benadryl) 25 mg IVP Q3 [facility] Last Admin: 09/10/17 10:17 Dose: 25 mg Diphenhydramine HCl (Benadryl) 25 mg IVP ONCE PRN PRN Reason: body itchiness Last Admin: 09/08/17 16:40 Dose: 25 mg Docusate Sodium (Colace) 100 mg PO TID [facility] Last Admin: 09/10/17 10:15 Dose: 100 mg Epoetin James (Procrit) 10,000 unit IV TTS [facility] Stop: 09/15/17 10:01 Last Admin: 09/08/17 16:02 Dose: 10,000 unit Ergocalciferol (Drisdol 50,000 Intl Units Cap) 1 cap PO QWK [facility] Last Admin: 09/04/17 10:04 Dose: 1 cap Gabapentin (Neurontin) 300 mg PO DAILY [facility] Last Admin: 09/10/17 10:15 Dose: 300 mg Glucagon (Glucagen Diagnostic Kit) 0 mg IM STAT PRN; Protocol PRN Reason: Hypoglycemia Protocol Hydralazine HCl (Apresoline) 25 mg PO QID [facility] Last Admin: 09/10/17 10:15 Dose: 25 mg Hydromorphone HCl (Dilaudid) 2 mg IVP Q3 [facility] Last Admin: 09/10/17 10:15 Dose: 2 mg Vancomycin/Sodium Chloride (Vancomycin 1 Gm/Ns 200 Ml) 1 gm in 200 mls @ 133 mls/hr IVPB MWF [facility] Stop: 09/10/17 19:01 Last Admin: 09/07/17 10:18 Dose: 133 mls/hr Insulin Glargine (Lantus) 25 unit SC [facility] Last Admin: 09/09/17 23:12 Dose: 25 unit Insulin Human Regular (Novolin R) 0 unit SC [facility] PRN Reason: Protocol Last Admin: 09/10/17 07:48 Dose: Not Given Metoclopramide HCl (Reglan) 10 mg PO DAILY [facility] Last Admin: 09/10/17 10:15 Dose: 10 mg Nifedipine (Procardia Xl) 30 mg PO DAILY [facility] Last Admin: 09/10/17 10:15 Dose: 30 mg Ondansetron HCl (Zofran Odt) 8 mg PO Q6 PRN PRN Reason: Nausea/Vomiting Pantoprazole Sodium (Protonix Ec Tab) 40 mg PO DAILY [facility] Last Admin: 09/10/17 10:14 Dose: 40 mg Sucralfate (Carafate Oral Susp) 1 gm PO [facility] Last Admin: 09/10/17 10:14 Dose: 1 gm - Labs Labs: 09/10/17 07:34 09/10/17 07:34 - Constitutional Appears: Non-toxic, No Acute Distress - Head Exam Head Exam: ATRAUMATIC, NORMAL INSPECTION - Eye Exam Eye Exam: EOMI, Normal appearance - ENT Exam ENT Exam: Mucous Membranes Moist - Neck Exam Neck Exam: Full ROM - Respiratory Exam Respiratory Exam: NORMAL BREATHING PATTERN - Cardiovascular Exam Cardiovascular Exam: +S1, +S2 - GI/Abdominal Exam GI & Abdominal Exam: Soft, Normal Bowel Sounds - Extremities Exam Extremities Exam: Full ROM - Neurological Exam Neurological Exam: Alert, Awake, Oriented x3 - Psychiatric Exam Psychiatric exam: Normal Affect, Normal Mood - Skin Skin Exam: Dry, Normal Color, Rash (rashes on right lower extremity), Warm Assessment and Plan - Assessment and Plan (Free Text) Assessment: DM with gastroparesis History of poorly controlled DM -Latest A1C (07/2017): 7.8 Accucheck ACHS hypoglycemia protocol Lantus 25 U SC HS Novolg 1 U SC HC ISS- medium dose Reglan 10mg PO daily Zofran 8mg PO Q6H PRN Intractable pain Patient with hx of noncompliance and drug seeking habits. Patient was given fentanyl patched on last admission but had issues obtaining them due to insurance. She also has not made an appointment with pain management. Need to business and financial counsel on pain management. Continue Dilaudid 2mg IVP Q3H Continue Benadryl 25 IV Q3H S/p left hallux nail matrixectomy on last admission F/U Podiatry recommendations DM neuropathy Neurontin 300mg PO BID Anemia of chronic disease Hgb stable today, 9 Procrit 10k u MWF IV HTN Patient poorly controlled Clonidine 0.3mg PO BID Hydralazine 25mg PO QID Nifedipine 30mg PO Daily ESRD Nephrology, Dr. Phillips consulted HD M/W// Sa Nephro-main 1 tablet PO daily Procrit 10k u MWF IV Nausea Reglan 10mg PO daily Zofran 8mg IV Q6PRN Vit D Deficiency Ergocalciferol 50k 1 cap qwkly Hepatitis Diagnosed on previous admission AST/ALT within normal limits Prophylaxis Heparin SC q12hrs Protonix 40mg PO daily Zofran prn nausea Colace 100mg PO TID Discussed with attending. All medical management per Dr. Edilia Sexton
[2017-09-10] MEDS: Epoetin Alfa 10,000 unit/ml Dialysis IV SCH (17:00)
[2017-09-10] MEDS: Dextrose 50% SYRINGE Inj (50 ml) IV PRN (17:40)
--- NOTE | 2017-09-10 17:59 | CP.PCM.PN ---
Subjective - Date & Time of Evaluation Date of Evaluation: 09/10/17 Time of Evaluation: 15:00 - Subjective Subjective: ESRD ON HD M W F AND SAT ANEMIA OF CKD .. ON EPO MMP P : C/O CURRENT CARE Objective - Vital Signs/Intake and Output Vital Signs (last 24 hours): Temp Pulse Resp BP Pulse Ox 97.3 F L 87 16 162/91 H 100 09/10/17 15:20 09/10/17 15:20 09/10/17 15:20 09/10/17 16:15 09/10/17 15:20 - Medications Medications: Current Medications Calcium Acetate (Phoslo) 667 mg PO TIDCC [facility] Last Admin: 09/10/17 13:17 Dose: 667 mg Clonidine HCl (Catapres) 0.3 mg PO BID [facility] Last Admin: 09/10/17 10:15 Dose: 0.3 mg Dextrose (Dextrose 50% Inj) 0 ml IV STAT PRN; Protocol PRN Reason: Hypoglycemia Protocol Last Admin: 09/10/17 17:49 Dose: 50 ml Dextrose (Glutose 15) 0 gm PO ONCE PRN; Protocol PRN Reason: Hypoglycemia Protocol Last Admin: 09/10/17 06:35 Dose: 15 gm Diphenhydramine HCl (Benadryl) 25 mg IVP Q3 [facility] Last Admin: 09/10/17 16:58 Dose: 25 mg Diphenhydramine HCl (Benadryl) 25 mg IVP ONCE PRN PRN Reason: body itchiness Last Admin: 09/08/17 16:40 Dose: 25 mg Docusate Sodium (Colace) 100 mg PO TID [facility] Last Admin: 09/10/17 13:17 Dose: 100 mg Epoetin James (Procrit) 10,000 unit IV MWF [facility] Last Admin: 09/10/17 17:00 Dose: 10,000 unit Ergocalciferol (Drisdol 50,000 Intl Units Cap) 1 cap PO QWK [facility] Last Admin: 09/04/17 10:04 Dose: 1 cap Gabapentin (Neurontin) 300 mg PO DAILY [facility] Last Admin: 09/10/17 10:15 Dose: 300 mg Glucagon (Glucagen Diagnostic Kit) 0 mg IM STAT PRN; Protocol PRN Reason: Hypoglycemia Protocol Hydralazine HCl (Apresoline) 25 mg PO QID [facility] Last Admin: 09/10/17 13:17 Dose: 25 mg Hydromorphone HCl (Dilaudid) 2 mg IVP Q3 [facility] Last Admin: 09/10/17 16:59 Dose: 2 mg Vancomycin/Sodium Chloride (Vancomycin 1 Gm/Ns 200 Ml) 1 gm in 200 mls @ 133 mls/hr IVPB MWF [facility] Stop: 09/10/17 19:01 Last Admin: 09/07/17 10:18 Dose: 133 mls/hr Insulin Glargine (Lantus) 25 unit SC [facility] Last Admin: 09/09/17 23:12 Dose: 25 unit Insulin Human Regular (Novolin R) 0 unit SC [facility] PRN Reason: Protocol Last Admin: 09/10/17 11:30 Dose: Not Given Metoclopramide HCl (Reglan) 10 mg PO DAILY [facility] Last Admin: 09/10/17 10:15 Dose: 10 mg Nifedipine (Procardia Xl) 30 mg PO DAILY [facility] Last Admin: 09/10/17 10:15 Dose: 30 mg Ondansetron HCl (Zofran Odt) 8 mg PO Q6 PRN PRN Reason: Nausea/Vomiting Pantoprazole Sodium (Protonix Ec Tab) 40 mg PO DAILY [facility] Last Admin: 09/10/17 10:14 Dose: 40 mg Sucralfate (Carafate Oral Susp) 1 gm PO [facility] Last Admin: 09/10/17 13:17 Dose: 1 gm - Labs Labs: 09/10/17 07:34 09/10/17 07:34
--- NOTE | 2017-09-10 19:47 | CP.PCM.PN ---
Subjective - Date & Time of Evaluation Date of Evaluation: 09/10/17 Time of Evaluation: 08:40 - Subjective Subjective: clinically same Objective - Vital Signs/Intake and Output Vital Signs (last 24 hours): Temp Pulse Resp BP Pulse Ox 97.5 F L 94 H 16 123/74 100 09/10/17 18:20 09/10/17 18:20 09/10/17 15:20 09/10/17 18:20 09/10/17 18:20 - Medications Medications: Current Medications Calcium Acetate (Phoslo) 667 mg PO TIDCC [facility] Last Admin: 09/10/17 17:00 Dose: Not Given Clonidine HCl (Catapres) 0.3 mg PO BID [facility] Last Admin: 09/10/17 18:00 Dose: Not Given Dextrose (Dextrose 50% Inj) 0 ml IV STAT PRN; Protocol PRN Reason: Hypoglycemia Protocol Last Admin: 09/10/17 17:40 Dose: 50 ml Dextrose (Glutose 15) 0 gm PO ONCE PRN; Protocol PRN Reason: Hypoglycemia Protocol Last Admin: 09/10/17 06:35 Dose: 15 gm Diphenhydramine HCl (Benadryl) 25 mg IVP Q3 [facility] Last Admin: 09/10/17 16:58 Dose: 25 mg Diphenhydramine HCl (Benadryl) 25 mg IVP ONCE PRN PRN Reason: body itchiness Last Admin: 09/08/17 16:40 Dose: 25 mg Docusate Sodium (Colace) 100 mg PO TID [facility] Last Admin: 09/10/17 18:00 Dose: Not Given Epoetin James (Procrit) 10,000 unit IV MWF [facility] Last Admin: 09/10/17 17:00 Dose: 10,000 unit Ergocalciferol (Drisdol 50,000 Intl Units Cap) 1 cap PO QWK [facility] Last Admin: 09/04/17 10:04 Dose: 1 cap Gabapentin (Neurontin) 300 mg PO DAILY [facility] Last Admin: 09/10/17 10:15 Dose: 300 mg Glucagon (Glucagen Diagnostic Kit) 0 mg IM STAT PRN; Protocol PRN Reason: Hypoglycemia Protocol Hydralazine HCl (Apresoline) 25 mg PO QID [facility] Last Admin: 09/10/17 18:00 Dose: Not Given Hydromorphone HCl (Dilaudid) 2 mg IVP Q3 [facility] Last Admin: 09/10/17 16:59 Dose: 2 mg Insulin Glargine (Lantus) 25 unit SC HS [facility] Last Admin: 09/09/17 23:12 Dose: 25 unit Insulin Human Regular (Novolin R) 0 unit SC [facility] PRN Reason: Protocol Last Admin: 09/10/17 16:30 Dose: Not Given Metoclopramide HCl (Reglan) 10 mg PO DAILY [facility] Last Admin: 09/10/17 10:15 Dose: 10 mg Nifedipine (Procardia Xl) 30 mg PO DAILY [facility] Last Admin: 09/10/17 10:15 Dose: 30 mg Ondansetron HCl (Zofran Odt) 8 mg PO Q6 PRN PRN Reason: Nausea/Vomiting Pantoprazole Sodium (Protonix Ec Tab) 40 mg PO DAILY [facility] Last Admin: 09/10/17 10:14 Dose: 40 mg Sucralfate (Carafate Oral Susp) 1 gm PO [facility] Last Admin: 09/10/17 16:30 Dose: Not Given - Labs Labs: 09/10/17 07:34 09/10/17 07:34 - Constitutional Appears: Well - Head Exam Head Exam: ATRAUMATIC, NORMAL INSPECTION, NORMOCEPHALIC - Eye Exam Eye Exam: EOMI, Normal appearance, PERRL Pupil Exam: NORMAL ACCOMODATION, PERRL - ENT Exam ENT Exam: Mucous Membranes Moist, Normal Exam - Neck Exam Neck Exam: Full ROM, Normal Inspection. absent: Lymphadenopathy - Respiratory Exam Respiratory Exam: Decreased Breath Sounds - Cardiovascular Exam Cardiovascular Exam: REGULAR RHYTHM, +S1, +S2 - GI/Abdominal Exam GI & Abdominal Exam: Soft, Diminished Bowel Sounds - Rectal Exam Rectal Exam: Deferred
[2017-09-10] MEDS: Vancomycin 1 gm/NS 200 ml 1 GM/200 ML BAG IVPB SCH (21:30)
[2017-09-10] MEDS: (Lantus) Insulin Glargine, Recombinant SC SCH (23:03)
[2017-09-11] MEDS: DiphenhydrAMINE 50 mg/ml Inj IVP SCH ×8 (01:02→23:35)
[2017-09-11] MEDS: (Novolin R) Insulin Human Regular 100 units/ml vial SC SCH ×4 (07:40→22:07)
[2017-09-11] MEDS: Sucralfate 1 gm/10 ml Oral Susp UD PO SCH ×4 (08:30→21:48)
[2017-09-11] MEDS: Ergocalciferol 50,000 Intl Units Cap PO SCH (10:02)
[2017-09-11] MEDS: Pantoprazole 40 mg EC Tab PO SCH (10:03)
[2017-09-11] MEDS: NIFEdipine 30 mg ER Tab PO SCH (10:09)
--- NOTE | 2017-09-11 12:41 | CP.PCM.PN ---
Objective - Vital Signs/Intake and Output Vital Signs (last 24 hours): Temp Pulse Resp BP Pulse Ox 98.6 F 110 H 20 138/87 98 09/11/17 07:30 09/11/17 07:30 09/11/17 07:30 09/11/17 07:30 09/11/17 07:30 Intake and Output: 09/11/17 09/11/17 06:59 18:59 Intake Total 500 Balance 500 - Medications Medications: Current Medications Calcium Acetate (Phoslo) 667 mg PO TIDCC [facility] Last Admin: 09/11/17 08:30 Dose: 667 mg Clonidine HCl (Catapres) 0.3 mg PO BID [facility] Last Admin: 09/11/17 10:03 Dose: 0.3 mg Dextrose (Dextrose 50% Inj) 0 ml IV STAT PRN; Protocol PRN Reason: Hypoglycemia Protocol Last Admin: 09/10/17 17:40 Dose: 50 ml Dextrose (Glutose 15) 0 gm PO ONCE PRN; Protocol PRN Reason: Hypoglycemia Protocol Last Admin: 09/10/17 06:35 Dose: 15 gm Diphenhydramine HCl (Benadryl) 25 mg IVP Q3 [facility] Last Admin: 09/11/17 10:03 Dose: 25 mg Diphenhydramine HCl (Benadryl) 25 mg IVP ONCE PRN PRN Reason: body itchiness Last Admin: 09/08/17 16:40 Dose: 25 mg Docusate Sodium (Colace) 100 mg PO TID [facility] Last Admin: 09/11/17 10:03 Dose: 100 mg Epoetin James (Procrit) 10,000 unit IV MWF [facility] Last Admin: 09/10/17 17:00 Dose: 10,000 unit Ergocalciferol (Drisdol 50,000 Intl Units Cap) 1 cap PO QWK [facility] Last Admin: 09/11/17 10:02 Dose: 1 cap Gabapentin (Neurontin) 300 mg PO DAILY [facility] Last Admin: 09/11/17 10:03 Dose: 300 mg Glucagon (Glucagen Diagnostic Kit) 0 mg IM STAT PRN; Protocol PRN Reason: Hypoglycemia Protocol Hydralazine HCl (Apresoline) 25 mg PO QID [facility] Last Admin: 09/11/17 10:03 Dose: 25 mg Hydromorphone HCl (Dilaudid) 2 mg IVP Q3 [facility] Last Admin: 09/11/17 10:03 Dose: 2 mg Insulin Glargine (Lantus) 25 unit SC HS [facility] Last Admin: 09/10/17 23:03 Dose: 25 unit Insulin Human Regular (Novolin R) 0 unit SC [facility] PRN Reason: Protocol Last Admin: 09/11/17 07:40 Dose: Not Given Metoclopramide HCl (Reglan) 10 mg PO DAILY [facility] Last Admin: 09/11/17 10:03 Dose: 10 mg Nifedipine (Procardia Xl) 30 mg PO DAILY [facility] Last Admin: 09/11/17 10:09 Dose: 30 mg Ondansetron HCl (Zofran Odt) 8 mg PO Q6 PRN PRN Reason: Nausea/Vomiting Pantoprazole Sodium (Protonix Ec Tab) 40 mg PO DAILY [facility] Last Admin: 09/11/17 10:03 Dose: 40 mg Sucralfate (Carafate Oral Susp) 1 gm PO [facility] Last Admin: 09/11/17 08:30 Dose: 1 gm - Labs Labs: 09/10/17 07:34 09/10/17 07:34
--- NOTE | 2017-09-11 14:18 | CP.PCM.CON ---
History of Present Illness - History of Present Illness History of Present Illness: Podiatry Consult Note- Dr. Noble This is a 31 yo female patient w/ pmhx diabetes, sickle cell disease, gastroparesis and ESRD (on dialysis) seen at bedside this morning concerning b/ l foot pain. Pt says that she had bilateral 3rd toenail removal 1 month ago (DOS : 08/22/17) and also had removal ingrown toenail left hallux 2 months ago (DOS: ). Pt says that she sees her environmental health and safety intern, Dr. Noble in the office. She complains of pain and swelling to the bilateral 3rd toes and also tenderness to the outside of her left great toenail. Says she has been trying to keep the feet clean. Denies any draining or purulence. Denies f/n/v/c/sob at this time. Review of Systems - Review of Systems Review of Systems: all systems reviewed and found negative outside HPI Past Patient History - Infectious Disease Hx of Infectious Diseases: None - Tetanus Immunizations Tetanus Immunization: Unknown - Past Medical History & Family History Past Medical History?: Yes - Past Social History Smoking Status: Never Smoked - CARDIAC Hx Cardiac Disorders: Yes Hx Congestive Heart Failure: Yes Hx Hypercholesterolemia: Yes Hx Hypertension: Yes Hx Peripheral Edema: Yes - PULMONARY Hx Respiratory Disorders: Yes Hx Asthma: Yes Hx Bronchitis: Yes Hx Pneumonia: Yes Hx Sleep Apnea: Yes - NEUROLOGICAL Hx Neurological Disorder: Yes Hx Seizures: Yes - HEENT Hx HEENT Problems: Yes Hx Cataracts: Yes Hx Glaucoma: Yes - RENAL Hx Chronic Kidney Disease: Yes Hx Kidney Stones: Yes - ENDOCRINE/METABOLIC Hx Endocrine Disorders: Yes Hx Hyperthyroidism: Yes Hx Hypothyroidism: Yes - HEMATOLOGICAL/ONCOLOGICAL Hx Blood Disorders: Yes Hx Anemia: Yes - INTEGUMENTARY Hx Dermatological Problems: Yes Other/Comment: DRY ITCHY SKIN ;multiple/generalized dark spots on skin. left toe blister - MUSCULOSKELETAL/RHEUMATOLOGICAL Hx Musculoskeletal Disorders: Yes Hx Falls: No Hx Fractures: Yes (Sep 2012 L foot) - GASTROINTESTINAL Hx Gastrointestinal Disorders: Yes Hx Gall Bladder Disease: Yes (gallbladder removed) Hx Gastritis: Yes Hx Pancreatitis: Yes (chronic) - GENITOURINARY/GYNECOLOGICAL Hx Genitourinary Disorders: No - PSYCHIATRIC Hx Psychophysiologic Disorder: Yes Hx Anxiety: Yes Hx Substance Use: No - SURGICAL HISTORY Hx Surgeries: Yes Hx Cholecystectomy: Yes Hx Coronary Stent: Yes - ANESTHESIA Hx Anesthesia: Yes Hx Anesthesia Reactions: No Hx Malignant Hyperthermia: No Meds Allergies/Adverse Reactions: Allergies Allergy/AdvReac Type Severity Reaction Status Date / Time ketorolac tromethamine Allergy RASH Verified 08/16/17 17:16 [From Toradol] latex Allergy RASH Verified 08/16/17 17:16 morphine Allergy RASH Verified 08/16/17 17:16 tramadol Allergy RASH Verified 08/16/17 17:16 - Medications Medications: Current Medications Calcium Acetate (Phoslo) 667 mg PO TIDCC [facility] Last Admin: 09/11/17 13:00 Dose: 667 mg Clonidine HCl (Catapres) 0.3 mg PO BID [facility] Last Admin: 09/11/17 10:03 Dose: 0.3 mg Dextrose (Dextrose 50% Inj) 0 ml IV STAT PRN; Protocol PRN Reason: Hypoglycemia Protocol Last Admin: 09/10/17 17:40 Dose: 50 ml Dextrose (Glutose 15) 0 gm PO ONCE PRN; Protocol PRN Reason: Hypoglycemia Protocol Last Admin: 09/10/17 06:35 Dose: 15 gm Diphenhydramine HCl (Benadryl) 25 mg IVP Q3 [facility] Last Admin: 09/11/17 13:06 Dose: 25 mg Diphenhydramine HCl (Benadryl) 25 mg IVP ONCE PRN PRN Reason: body itchiness Last Admin: 09/08/17 16:40 Dose: 25 mg Docusate Sodium (Colace) 100 mg PO TID [facility] Last Admin: 09/11/17 13:06 Dose: 100 mg Epoetin James (Procrit) 10,000 unit IV MWF [facility] Last Admin: 09/10/17 17:00 Dose: 10,000 unit Ergocalciferol (Drisdol 50,000 Intl Units Cap) 1 cap PO QWK [facility] Last Admin: 09/11/17 10:02 Dose: 1 cap Gabapentin (Neurontin) 300 mg PO DAILY [facility] Last Admin: 09/11/17 10:03 Dose: 300 mg Glucagon (Glucagen Diagnostic Kit) 0 mg IM STAT PRN; Protocol PRN Reason: Hypoglycemia Protocol Hydralazine HCl (Apresoline) 25 mg PO QID [facility] Last Admin: 09/11/17 13:06 Dose: 25 mg Hydromorphone HCl (Dilaudid) 2 mg IVP Q3 [facility] Last Admin: 09/11/17 13:07 Dose: 2 mg Insulin Glargine (Lantus) 25 unit SC [facility] Last Admin: 09/10/17 23:03 Dose: 25 unit Insulin Human Regular (Novolin R) 0 unit SC [facility] PRN Reason: Protocol Last Admin: 09/11/17 07:40 Dose: Not Given Metoclopramide HCl (Reglan) 10 mg PO DAILY [facility] Last Admin: 09/11/17 10:03 Dose: 10 mg Nifedipine (Procardia Xl) 30 mg PO DAILY [facility] Last Admin: 09/11/17 10:09 Dose: 30 mg Ondansetron HCl (Zofran Odt) 8 mg PO Q6 PRN PRN Reason: Nausea/Vomiting Pantoprazole Sodium (Protonix Ec Tab) 40 mg PO DAILY [facility] Last Admin: 09/11/17 10:03 Dose: 40 mg Sucralfate (Carafate Oral Susp) 1 gm PO [facility] Last Admin: 09/11/17 12:20 Dose: 1 gm Physical Exam - Constitutional Appears: Non-toxic, No Acute Distress - Extremities Exam Extremities exam: Negative for: calf tenderness Additional comments: B/L LE exam: VASC- pedal pulses fully palpable b/l (grade 2/4), cap refill < 3 sec to all digits x10, cap refill is brisk to all toes, 3rd digit b/l appears grossly edematous circumferentially NEURO- gross and protective pedal sensation is intact BL DERM- toenails 1-2 on b/l are thickened and discolored, hypergranulation tissue is noted to nail bed of 3rd digiti b/l with no evidence of drainage, neg malodor , neg erythema (distal aspect of both toes appear to have darkened skin changes) , well healed cicatrix is noted to 4th interspace of right foot (previous ulceration) ORTHO -tenderness to palp of b/l 3rd toe and also to palp of lateral nail border left hallux - Neurological Exam Neurological exam: Alert, CN II-XII Intact, Oriented x3 - Psychiatric Exam Psychiatric exam: Anxious Results - Vital Signs Recent Vital Signs: Last Vital Signs Temp 98.6 F 09/11/17 07:30 Pulse 110 H 09/11/17 07:30 Resp 20 09/11/17 07:30 BP 138/87 09/11/17 07:30 Pulse Ox 98 09/11/17 07:30 - Labs Result Diagrams: 09/10/17 07:34 09/10/17 07:34 Labs: Laboratory Results - last 24 hr 09/10/17 09/10/17 09/10/17 17:24 17:26 17:57 POC Glucose (mg/dL) 56 L 58 L 150 H 09/10/17 09/11/17 09/11/17 21:04 06:27 11:55 POC Glucose (mg/dL) 142 H 120 H 225 H Assessment & Plan - Assessment and Plan (Free Text) Assessment: 31 yo female pt seen for painful 3rd digit b/l feet and painful left hallux toenail Plan: Pt S&E at the bedside Plan discussed with attending Dr. Arias Chart, labs and vitals reviewed: afebrile, absent leukocytosis Pt advised to keep toes clean and dry and to wear hospital socks will order b/l foot x-rays (r/o OM) Stable, will follow
--- NOTE | 2017-09-11 16:41 | CP.PCM.PN ---
Subjective - Date & Time of Evaluation Date of Evaluation: 09/11/17 Time of Evaluation: 13:00 - Subjective Subjective: SEEN ON RENAL F/U IN BED RESTING FEELS BETTER MOM ON THE BED SIDE ALL PREVIOUE EMR REVIEWED Objective - Vital Signs/Intake and Output Vital Signs (last 24 hours): Temp Pulse Resp BP Pulse Ox 98.6 F 110 H 20 138/87 98 09/11/17 07:30 09/11/17 07:30 09/11/17 07:30 09/11/17 07:30 09/11/17 07:30 Intake and Output: 09/11/17 09/11/17 06:59 18:59 Intake Total 500 380 Balance 500 380 - Medications Medications: Current Medications Calcium Acetate (Phoslo) 667 mg PO TIDCC [facility] Last Admin: 09/11/17 13:00 Dose: 667 mg Clonidine HCl (Catapres) 0.3 mg PO BID [facility] Last Admin: 09/11/17 10:03 Dose: 0.3 mg Dextrose (Dextrose 50% Inj) 0 ml IV STAT PRN; Protocol PRN Reason: Hypoglycemia Protocol Last Admin: 09/10/17 17:40 Dose: 50 ml Dextrose (Glutose 15) 0 gm PO ONCE PRN; Protocol PRN Reason: Hypoglycemia Protocol Last Admin: 09/10/17 06:35 Dose: 15 gm Diphenhydramine HCl (Benadryl) 25 mg IVP Q3 [facility] Last Admin: 09/11/17 16:20 Dose: 25 mg Diphenhydramine HCl (Benadryl) 25 mg IVP ONCE PRN PRN Reason: body itchiness Last Admin: 09/08/17 16:40 Dose: 25 mg Docusate Sodium (Colace) 100 mg PO TID [facility] Last Admin: 09/11/17 13:06 Dose: 100 mg Epoetin James (Procrit) 10,000 unit IV MWF [facility] Last Admin: 09/10/17 17:00 Dose: 10,000 unit Ergocalciferol (Drisdol 50,000 Intl Units Cap) 1 cap PO QWK [facility] Last Admin: 09/11/17 10:02 Dose: 1 cap Gabapentin (Neurontin) 300 mg PO DAILY [facility] Last Admin: 09/11/17 10:03 Dose: 300 mg Glucagon (Glucagen Diagnostic Kit) 0 mg IM STAT PRN; Protocol PRN Reason: Hypoglycemia Protocol Hydralazine HCl (Apresoline) 25 mg PO QID [facility] Last Admin: 09/11/17 13:06 Dose: 25 mg Hydromorphone HCl (Dilaudid) 2 mg IVP Q3 [facility] Last Admin: 09/11/17 16:11 Dose: 2 mg Insulin Glargine (Lantus) 25 unit SC [facility] Last Admin: 09/10/17 23:03 Dose: 25 unit Insulin Human Regular (Novolin R) 0 unit SC [facility] PRN Reason: Protocol Last Admin: 09/11/17 12:20 Dose: 3 unit Metoclopramide HCl (Reglan) 10 mg PO DAILY [facility] Last Admin: 09/11/17 10:03 Dose: 10 mg Nifedipine (Procardia Xl) 30 mg PO DAILY [facility] Last Admin: 09/11/17 10:09 Dose: 30 mg Ondansetron HCl (Zofran Odt) 8 mg PO Q6 PRN PRN Reason: Nausea/Vomiting Pantoprazole Sodium (Protonix Ec Tab) 40 mg PO DAILY [facility] Last Admin: 09/11/17 10:03 Dose: 40 mg Sucralfate (Carafate Oral Susp) 1 gm PO [facility] Last Admin: 09/11/17 12:20 Dose: 1 gm - Labs Labs: 09/10/17 07:34 09/10/17 07:34 Assessment and Plan - Assessment and Plan (Free Text) Assessment: ESRD ON HD M W F AND SAT ANEMIA OF CKD .. ON EPO MMP P : C/O CURRENT CARE C/O PRESENT MANAGEMENT
--- NOTE | 2017-09-11 16:56 | CP.PCM.PN ---
Subjective - Date & Time of Evaluation Date of Evaluation: 09/11/17 Time of Evaluation: 09:00 - Subjective Subjective: clinically same Objective - Vital Signs/Intake and Output Vital Signs (last 24 hours): Temp Pulse Resp BP Pulse Ox 98.6 F 110 H 20 138/87 98 09/11/17 07:30 09/11/17 07:30 09/11/17 07:30 09/11/17 07:30 09/11/17 07:30 Intake and Output: 09/11/17 09/11/17 06:59 18:59 Intake Total 500 380 Balance 500 380 - Medications Medications: Current Medications Calcium Acetate (Phoslo) 667 mg PO TIDCC [facility] Last Admin: 09/11/17 13:00 Dose: 667 mg Clonidine HCl (Catapres) 0.3 mg PO BID [facility] Last Admin: 09/11/17 10:03 Dose: 0.3 mg Dextrose (Dextrose 50% Inj) 0 ml IV STAT PRN; Protocol PRN Reason: Hypoglycemia Protocol Last Admin: 09/10/17 17:40 Dose: 50 ml Dextrose (Glutose 15) 0 gm PO ONCE PRN; Protocol PRN Reason: Hypoglycemia Protocol Last Admin: 09/10/17 06:35 Dose: 15 gm Diphenhydramine HCl (Benadryl) 25 mg IVP Q3 [facility] Last Admin: 09/11/17 16:20 Dose: 25 mg Diphenhydramine HCl (Benadryl) 25 mg IVP ONCE PRN PRN Reason: body itchiness Last Admin: 09/08/17 16:40 Dose: 25 mg Docusate Sodium (Colace) 100 mg PO TID [facility] Last Admin: 09/11/17 13:06 Dose: 100 mg Epoetin James (Procrit) 10,000 unit IV MWF [facility] Last Admin: 09/10/17 17:00 Dose: 10,000 unit Ergocalciferol (Drisdol 50,000 Intl Units Cap) 1 cap PO QWK [facility] Last Admin: 09/11/17 10:02 Dose: 1 cap Gabapentin (Neurontin) 300 mg PO DAILY [facility] Last Admin: 09/11/17 10:03 Dose: 300 mg Glucagon (Glucagen Diagnostic Kit) 0 mg IM STAT PRN; Protocol PRN Reason: Hypoglycemia Protocol Hydralazine HCl (Apresoline) 25 mg PO QID [facility] Last Admin: 09/11/17 13:06 Dose: 25 mg Hydromorphone HCl (Dilaudid) 2 mg IVP Q3 [facility] Last Admin: 09/11/17 16:11 Dose: 2 mg Insulin Glargine (Lantus) 25 unit SC HS [facility] Last Admin: 09/10/17 23:03 Dose: 25 unit Insulin Human Regular (Novolin R) 0 unit SC [facility] PRN Reason: Protocol Last Admin: 09/11/17 12:20 Dose: 3 unit Metoclopramide HCl (Reglan) 10 mg PO DAILY [facility] Last Admin: 09/11/17 10:03 Dose: 10 mg Nifedipine (Procardia Xl) 30 mg PO DAILY [facility] Last Admin: 09/11/17 10:09 Dose: 30 mg Ondansetron HCl (Zofran Odt) 8 mg PO Q6 PRN PRN Reason: Nausea/Vomiting Pantoprazole Sodium (Protonix Ec Tab) 40 mg PO DAILY [facility] Last Admin: 09/11/17 10:03 Dose: 40 mg Sucralfate (Carafate Oral Susp) 1 gm PO [facility] Last Admin: 09/11/17 12:20 Dose: 1 gm - Labs Labs: 09/10/17 07:34 09/10/17 07:34 - Constitutional Appears: Well - Head Exam Head Exam: ATRAUMATIC, NORMAL INSPECTION, NORMOCEPHALIC - Eye Exam Eye Exam: EOMI, Normal appearance, PERRL Pupil Exam: NORMAL ACCOMODATION, PERRL - ENT Exam ENT Exam: Mucous Membranes Moist, Normal Exam - Neck Exam Neck Exam: Full ROM, Normal Inspection. absent: Lymphadenopathy - Respiratory Exam Respiratory Exam: Decreased Breath Sounds - Cardiovascular Exam Cardiovascular Exam: REGULAR RHYTHM, +S1, +S2 - GI/Abdominal Exam GI & Abdominal Exam: Soft, Diminished Bowel Sounds - Rectal Exam Rectal Exam: Deferred
--- NOTE | 2017-09-11 21:13 | CP.PCM.PN ---
Subjective - Date & Time of Evaluation Date of Evaluation: 09/12/17 Time of Evaluation: 13:45 - Subjective Subjective: Progress Note- Dr. Sexton's service Patient seen and examined in no apparent acute distress. Patient complaining of pain; however patient was just given pain medications per Nursing within the past two hours. Patient stated that she did not feel well. She denied nausea, vomiting, diarrhea, constipation at this time. Objective - Vital Signs/Intake and Output Vital Signs (last 24 hours): Temp Pulse Resp BP Pulse Ox 98.6 F 110 H 20 138/87 98 09/11/17 07:30 09/11/17 07:30 09/11/17 07:30 09/11/17 07:30 09/11/17 07:30 Intake and Output: 09/11/17 09/12/17 18:59 06:59 Intake Total 380 Balance 380 - Medications Medications: Current Medications Calcium Acetate (Phoslo) 667 mg PO TIDCC [facility] Last Admin: 09/11/17 18:27 Dose: 667 mg Clonidine HCl (Catapres) 0.3 mg PO BID [facility] Last Admin: 09/11/17 18:27 Dose: 0.3 mg Dextrose (Dextrose 50% Inj) 0 ml IV STAT PRN; Protocol PRN Reason: Hypoglycemia Protocol Last Admin: 09/10/17 17:40 Dose: 50 ml Dextrose (Glutose 15) 0 gm PO ONCE PRN; Protocol PRN Reason: Hypoglycemia Protocol Last Admin: 09/10/17 06:35 Dose: 15 gm Diphenhydramine HCl (Benadryl) 25 mg IVP Q3 [facility] Last Admin: 09/11/17 20:24 Dose: 25 mg Diphenhydramine HCl (Benadryl) 25 mg IVP ONCE PRN PRN Reason: body itchiness Last Admin: 09/08/17 16:40 Dose: 25 mg Docusate Sodium (Colace) 100 mg PO TID [facility] Last Admin: 09/11/17 18:27 Dose: 100 mg Epoetin James (Procrit) 10,000 unit IV MWF [facility] Last Admin: 09/10/17 17:00 Dose: 10,000 unit Ergocalciferol (Drisdol 50,000 Intl Units Cap) 1 cap PO QWK [facility] Last Admin: 09/11/17 10:02 Dose: 1 cap Gabapentin (Neurontin) 300 mg PO DAILY [facility] Last Admin: 09/11/17 10:03 Dose: 300 mg Glucagon (Glucagen Diagnostic Kit) 0 mg IM STAT PRN; Protocol PRN Reason: Hypoglycemia Protocol Hydralazine HCl (Apresoline) 25 mg PO QID [facility] Last Admin: 09/11/17 18:27 Dose: 25 mg Hydromorphone HCl (Dilaudid) 2 mg IVP Q3 [facility] Last Admin: 09/11/17 20:23 Dose: 2 mg Insulin Glargine (Lantus) 25 unit SC [facility] Last Admin: 09/10/17 23:03 Dose: 25 unit Insulin Human Regular (Novolin R) 0 unit SC [facility] PRN Reason: Protocol Last Admin: 09/11/17 18:27 Dose: 4 unit Metoclopramide HCl (Reglan) 10 mg PO DAILY [facility] Last Admin: 09/11/17 10:03 Dose: 10 mg Nifedipine (Procardia Xl) 30 mg PO DAILY [facility] Last Admin: 09/11/17 10:09 Dose: 30 mg Ondansetron HCl (Zofran Odt) 8 mg PO Q6 PRN PRN Reason: Nausea/Vomiting Pantoprazole Sodium (Protonix Ec Tab) 40 mg PO DAILY [facility] Last Admin: 09/11/17 10:03 Dose: 40 mg Sucralfate (Carafate Oral Susp) 1 gm PO [facility] Last Admin: 09/11/17 16:30 Dose: Not Given - Labs Labs: 09/10/17 07:34 09/10/17 07:34 - Constitutional Appears: Non-toxic, No Acute Distress - Head Exam Head Exam: ATRAUMATIC, NORMAL INSPECTION - Eye Exam Eye Exam: EOMI, Normal appearance Pupil Exam: NORMAL ACCOMODATION - ENT Exam ENT Exam: Mucous Membranes Moist - Neck Exam Neck Exam: Full ROM - Respiratory Exam Respiratory Exam: NORMAL BREATHING PATTERN - Cardiovascular Exam Cardiovascular Exam: +S1, +S2 - GI/Abdominal Exam GI & Abdominal Exam: Soft, Normal Bowel Sounds - Extremities Exam Extremities Exam: Full ROM Additional comments: hyperkeratotic lesions on LE shins bilaterally, tender - Back Exam Back Exam: Full ROM - Neurological Exam Neurological Exam: Alert, Awake, Oriented x3 - Psychiatric Exam Psychiatric exam: Normal Affect, Normal Mood - Skin Skin Exam: Dry, Normal Color, Warm Additional comments: thickened darkened, toenail discoloration Assessment and Plan - Assessment and Plan (Free Text) Assessment: DM with gastroparesis History of poorly controlled DM -Latest A1C (07/2017): 7.8 Accucheck ACHS hypoglycemia protocol Lantus 25 U SC HS Novolg 1 U SC HC ISS- medium dose Reglan 10mg PO daily Zofran 8mg PO Q6H PRN Intractable pain Patient with hx of noncompliance and drug seeking habits. Patient was given fentanyl patched on last admission but had issues obtaining them due to insurance. She also has not made an appointment with pain management. Need to investment counselor on pain management. Continue Dilaudid 2mg IVP Q3H Continue Benadryl 25 IV Q3H S/p left hallux nail matrixectomy on last admission Pt advised to keep toes clean and dry and to wear hospital socks F/U b/l foot x-rays to rule out Osteomyelitis F/U additional Podiatry recommendations Skin hyperkeratotic lesions Discussed benefits of a biopsy. Patient will think it over at this time. DM neuropathy Neurontin 300mg PO BID Anemia of chronic disease Hgb stable Procrit 10k u MWF IV HTN BP poorly controlled Clonidine 0.3mg PO BID Hydralazine 25mg PO QID Nifedipine 30mg PO Daily ESRD Nephrology, Dr. hPillips consulted HD M/// Nephro-main 1 tablet PO daily Procrit 10k u MWF IV Nausea Reglan 10mg PO daily Zofran 8mg IV Q6PRN Vit D Deficiency Ergocalciferol 50k 1 cap qwkly Hepatitis Diagnosed on previous admission AST/ALT within normal limits Prophylaxis Heparin SC q12hrs Protonix 40mg PO daily Zofran prn nausea Colace 100mg PO TID Discussed with attending. All medical management per Dr. Edilia Sexton
[2017-09-11] MEDS: (Lantus) Insulin Glargine, Recombinant SC SCH (21:49)
[2017-09-12] MEDS: DiphenhydrAMINE 50 mg/ml Inj IVP SCH ×8 (01:46→23:00)
[2017-09-12] MEDS: Sucralfate 1 gm/10 ml Oral Susp UD PO SCH ×4 (07:52→23:00)
[2017-09-12] MEDS: (Novolin R) Insulin Human Regular 100 units/ml vial SC SCH ×4 (07:58→21:18)
[2017-09-12] MEDS: Pantoprazole 40 mg EC Tab PO SCH (10:51)
[2017-09-12] MEDS: NIFEdipine 30 mg ER Tab PO SCH (10:54)
--- NOTE | 2017-09-12 11:49 | CP.PCM.PCO ---
Physician Communication Note - Physician Communication Note Physician Communication Note: Possible OM 3rd toe B/L. x-ray read pending. ESR/ CRP ordered
[2017-09-12] MEDS: DiphenhydrAMINE 50 mg/ml Inj IVP PRN (15:14)
[2017-09-12 15:32] LABS: ALB/GLOB RATIO 1.1 (1.0-2.1); ALBUMIN 3.9 g/dL (3.5-5.0); CALCIUM 7.9 mg/dl (8.6-10.4)
--- NOTE | 2017-09-12 15:55 | CP.PCM.PN ---
Subjective - Date & Time of Evaluation Date of Evaluation: 09/12/17 Time of Evaluation: 15:54 - Subjective Subjective: REQUESTED TO INCREASE DILAUDID TO 3 MG IV Q3 HRS PRN; PER PT DR. CARVALHO SAID IT COULD BE INCREASED. PER RN FROM PREVIOUS DAY, PT WAS MEDICATED WITH DILAUDID AND BECAME VERY LETHARGIC. RECOMMENDED NOT TO INCREASE PT'S DILAUDID UNLESS SHE IS EVALUATED BY PAIN MANAGEMENT IF REQUESTED BY PRIMARY TEAM. NO FURTHER ORDER. Objective - Vital Signs/Intake and Output Vital Signs (last 24 hours): Temp Pulse Resp BP Pulse Ox 97.4 F L 88 20 177/101 H 98 09/12/17 07:35 09/12/17 07:35 09/12/17 07:35 09/12/17 07:35 09/12/17 07:35 Intake and Output: 09/12/17 09/12/17 06:59 18:59 Intake Total 200 Balance 200 - Medications Medications: Current Medications Calcium Acetate (Phoslo) 667 mg PO TIDCC [facility] Last Admin: 09/12/17 11:01 Dose: 667 mg Clonidine HCl (Catapres) 0.3 mg PO BID [facility] Last Admin: 09/12/17 10:53 Dose: Not Given Dextrose (Dextrose 50% Inj) 0 ml IV STAT PRN; Protocol PRN Reason: Hypoglycemia Protocol Last Admin: 09/10/17 17:40 Dose: 50 ml Dextrose (Glutose 15) 0 gm PO ONCE PRN; Protocol PRN Reason: Hypoglycemia Protocol Last Admin: 09/10/17 06:35 Dose: 15 gm Diphenhydramine HCl (Benadryl) 25 mg IVP Q3 [facility] Last Admin: 09/12/17 13:47 Dose: 25 mg Diphenhydramine HCl (Benadryl) 25 mg IVP ONCE PRN PRN Reason: body itchiness Last Admin: 09/12/17 15:14 Dose: 25 mg Docusate Sodium (Colace) 100 mg PO TID [facility] Last Admin: 09/12/17 14:18 Dose: Not Given Epoetin James (Procrit) 10,000 unit IV MWF [facility] Last Admin: 09/10/17 17:00 Dose: 10,000 unit Ergocalciferol (Drisdol 50,000 Intl Units Cap) 1 cap PO QWK [facility] Last Admin: 09/11/17 10:02 Dose: 1 cap Gabapentin (Neurontin) 300 mg PO DAILY [facility] Last Admin: 09/12/17 10:51 Dose: 300 mg Glucagon (Glucagen Diagnostic Kit) 0 mg IM STAT PRN; Protocol PRN Reason: Hypoglycemia Protocol Hydralazine HCl (Apresoline) 25 mg PO QID [facility] Last Admin: 09/12/17 14:17 Dose: Not Given Hydromorphone HCl (Dilaudid) 2 mg IVP Q3 [facility] Last Admin: 09/12/17 13:47 Dose: 2 mg Insulin Glargine (Lantus) 25 unit SC [facility] Last Admin: 09/11/17 21:49 Dose: 25 unit Insulin Human Regular (Novolin R) 0 unit SC [facility] PRN Reason: Protocol Last Admin: 09/12/17 12:09 Dose: Not Given Metoclopramide HCl (Reglan) 10 mg PO DAILY [facility] Last Admin: 09/12/17 10:51 Dose: 10 mg Nifedipine (Procardia Xl) 30 mg PO DAILY [facility] Last Admin: 09/12/17 10:54 Dose: Not Given Ondansetron HCl (Zofran Odt) 8 mg PO Q6 PRN PRN Reason: Nausea/Vomiting Pantoprazole Sodium (Protonix Ec Tab) 40 mg PO DAILY [facility] Last Admin: 09/12/17 10:51 Dose: 40 mg Sucralfate (Carafate Oral Susp) 1 gm PO [facility] Last Admin: 09/12/17 10:50 Dose: 1 gm - Labs Labs: 09/10/17 07:34 09/12/17 15:09
[2017-09-12 16:41] LABS: BASO # 0.1 K/uL (0.0-0.2); BASO % 1.4 % (0.0-2.0); EOS # 0.8 K/uL (0.0-0.7); EOS % 11.7 % (0.0-4.0); LYMPH % 15.1 % (20.0-40.0); MEAN CELL VOLUME 96.8 fL (81.0-99.0); MEAN CORPUSCULAR HEMOGLOBIN 31.2 pg (27.0-31.0); MEAN CORPUSCULAR HGB CONC 32.2 g/dL (33.0-37.0); MEAN PLATELET VOLUME 8.1 fL (7.2-11.7); MONO # 0.6 K/uL (0.0-0.8); MONO % 8.4 % (0.0-10.0); NEUT # 4.2 K/uL (1.8-7.0); NEUT % 63.4 % (50.0-75.0); NRBC % 0.1 % (0.0-2.0); RBC 2.87 Mil/uL (3.80-5.20); RED CELL DISTRIBUTION WIDTH 17.4 % (11.5-14.5); WHITE BLOOD COUNT 6.6 K/uL (4.8-10.8)
[2017-09-12] MEDS: Epoetin Alfa 10,000 unit/ml Dialysis IV SCH (18:03)
--- NOTE | 2017-09-12 18:20 | CP.PCM.PN ---
Subjective - Date & Time of Evaluation Date of Evaluation: 09/12/17 Time of Evaluation: 09:00 - Subjective Subjective: clinically same Objective - Vital Signs/Intake and Output Vital Signs (last 24 hours): Temp Pulse Resp BP Pulse Ox 97.9 F 98 H 18 185/104 H 100 09/12/17 15:00 09/12/17 17:30 09/12/17 15:00 09/12/17 17:30 09/12/17 17:30 Intake and Output: 09/12/17 09/12/17 06:59 18:59 Intake Total 200 400 Balance 200 400 - Medications Medications: Current Medications Calcium Acetate (Phoslo) 667 mg PO TIDCC [facility] Last Admin: 09/12/17 11:01 Dose: 667 mg Clonidine HCl (Catapres) 0.3 mg PO BID [facility] Last Admin: 09/12/17 10:53 Dose: Not Given Dextrose (Dextrose 50% Inj) 0 ml IV STAT PRN; Protocol PRN Reason: Hypoglycemia Protocol Last Admin: 09/10/17 17:40 Dose: 50 ml Dextrose (Glutose 15) 0 gm PO ONCE PRN; Protocol PRN Reason: Hypoglycemia Protocol Last Admin: 09/10/17 06:35 Dose: 15 gm Diphenhydramine HCl (Benadryl) 25 mg IVP Q3 [facility] Last Admin: 09/12/17 16:32 Dose: 25 mg Diphenhydramine HCl (Benadryl) 25 mg IVP ONCE PRN PRN Reason: body itchiness Last Admin: 09/12/17 15:14 Dose: 25 mg Docusate Sodium (Colace) 100 mg PO TID [facility] Last Admin: 09/12/17 14:18 Dose: Not Given Epoetin James (Procrit) 10,000 unit IV MWF [facility] Last Admin: 09/12/17 18:03 Dose: 10,000 unit Ergocalciferol (Drisdol 50,000 Intl Units Cap) 1 cap PO QWK [facility] Last Admin: 09/11/17 10:02 Dose: 1 cap Gabapentin (Neurontin) 300 mg PO DAILY [facility] Last Admin: 09/12/17 10:51 Dose: 300 mg Glucagon (Glucagen Diagnostic Kit) 0 mg IM STAT PRN; Protocol PRN Reason: Hypoglycemia Protocol Hydralazine HCl (Apresoline) 25 mg PO QID [facility] Last Admin: 09/12/17 14:17 Dose: Not Given Hydromorphone HCl (Dilaudid) 2 mg IVP Q3 [facility] Last Admin: 09/12/17 16:31 Dose: 2 mg Insulin Glargine (Lantus) 25 unit SC HS [facility] Last Admin: 09/11/17 21:49 Dose: 25 unit Insulin Human Regular (Novolin R) 0 unit SC [facility] PRN Reason: Protocol Last Admin: 09/12/17 12:09 Dose: Not Given Metoclopramide HCl (Reglan) 10 mg PO DAILY [facility] Last Admin: 09/12/17 10:51 Dose: 10 mg Nifedipine (Procardia Xl) 30 mg PO DAILY [facility] Last Admin: 09/12/17 10:54 Dose: Not Given Ondansetron HCl (Zofran Odt) 8 mg PO Q6 PRN PRN Reason: Nausea/Vomiting Pantoprazole Sodium (Protonix Ec Tab) 40 mg PO DAILY [facility] Last Admin: 09/12/17 10:51 Dose: 40 mg Sucralfate (Carafate Oral Susp) 1 gm PO [facility] Last Admin: 09/12/17 10:50 Dose: 1 gm - Labs Labs: 09/12/17 16:24 09/12/17 15:09 - Constitutional Appears: Well - Head Exam Head Exam: ATRAUMATIC, NORMAL INSPECTION, NORMOCEPHALIC - Eye Exam Eye Exam: EOMI, Normal appearance, PERRL Pupil Exam: NORMAL ACCOMODATION, PERRL - ENT Exam ENT Exam: Mucous Membranes Moist, Normal Exam - Neck Exam Neck Exam: Full ROM, Normal Inspection. absent: Lymphadenopathy - Respiratory Exam Respiratory Exam: Decreased Breath Sounds - Cardiovascular Exam Cardiovascular Exam: REGULAR RHYTHM, +S1, +S2 - GI/Abdominal Exam GI & Abdominal Exam: Soft, Diminished Bowel Sounds - Rectal Exam Rectal Exam: Deferred
[2017-09-12] MEDS: (Lantus) Insulin Glargine, Recombinant SC SCH (23:00)
[2017-09-13] MEDS: DiphenhydrAMINE 50 mg/ml Inj IVP SCH ×8 (02:05→21:16)
[2017-09-13] MEDS: (Novolin R) Insulin Human Regular 100 units/ml vial SC SCH ×4 (07:20→21:36)
[2017-09-13] MEDS: Sucralfate 1 gm/10 ml Oral Susp UD PO SCH ×3 (08:45→18:13)
--- NOTE | 2017-09-13 11:15 | CP.PCM.PN ---
Subjective - Date & Time of Evaluation Date of Evaluation: 09/13/17 Time of Evaluation: 11:00 - Subjective Subjective: Podiatry Progress Note- Dr. Noble: 31 yo diabetic female pt seen at bedside this AM with Dr. Noble present concerning b/l 3rd toe pain/swelling. Denies f/n/v/c/sob/cp/weakness or calf pain at this time. Has been keeping the feet clean. Reports little appetite. Offers no further complaints. Objective - Vital Signs/Intake and Output Vital Signs (last 24 hours): Temp Pulse Resp BP Pulse Ox 97.4 F L 100 H 20 227/134 H 99 09/13/17 07:45 09/13/17 07:45 09/13/17 07:45 09/13/17 07:45 09/13/17 07:45 Intake and Output: 09/13/17 09/13/17 06:59 18:59 Intake Total 200 Balance 200 - Medications Medications: Current Medications Calcium Acetate (Phoslo) 667 mg PO TIDCC [facility] Last Admin: 09/12/17 17:00 Dose: Not Given Clonidine HCl (Catapres) 0.3 mg PO BID [facility] Last Admin: 09/13/17 07:55 Dose: 0.3 mg Dextrose (Dextrose 50% Inj) 0 ml IV STAT PRN; Protocol PRN Reason: Hypoglycemia Protocol Last Admin: 09/10/17 17:40 Dose: 50 ml Dextrose (Glutose 15) 0 gm PO ONCE PRN; Protocol PRN Reason: Hypoglycemia Protocol Last Admin: 09/10/17 06:35 Dose: 15 gm Diphenhydramine HCl (Benadryl) 25 mg IVP Q3 [facility] Last Admin: 09/13/17 07:55 Dose: 25 mg Diphenhydramine HCl (Benadryl) 25 mg IVP ONCE PRN PRN Reason: body itchiness Last Admin: 09/12/17 15:14 Dose: 25 mg Docusate Sodium (Colace) 100 mg PO TID [facility] Last Admin: 09/12/17 19:54 Dose: 100 mg Epoetin James (Procrit) 10,000 unit IV MWF [facility] Last Admin: 09/12/17 18:03 Dose: 10,000 unit Ergocalciferol (Drisdol 50,000 Intl Units Cap) 1 cap PO QWK [facility] Last Admin: 09/11/17 10:02 Dose: 1 cap Gabapentin (Neurontin) 300 mg PO DAILY [facility] Last Admin: 09/12/17 10:51 Dose: 300 mg Glucagon (Glucagen Diagnostic Kit) 0 mg IM STAT PRN; Protocol PRN Reason: Hypoglycemia Protocol Hydralazine HCl (Apresoline) 25 mg PO QID [facility] Last Admin: 09/13/17 07:54 Dose: 25 mg Hydromorphone HCl (Dilaudid) 2 mg IVP Q3 [facility] Last Admin: 09/13/17 07:55 Dose: 2 mg Insulin Glargine (Lantus) 25 unit SC HS [facility] Last Admin: 09/12/17 23:00 Dose: 25 unit Insulin Human Regular (Novolin R) 0 unit SC [facility] PRN Reason: Protocol Last Admin: 09/13/17 07:20 Dose: Not Given Metoclopramide HCl (Reglan) 10 mg PO DAILY [facility] Last Admin: 09/12/17 10:51 Dose: 10 mg Nifedipine (Procardia Xl) 30 mg PO DAILY [facility] Last Admin: 09/12/17 10:54 Dose: Not Given Ondansetron HCl (Zofran Odt) 8 mg PO Q6 PRN PRN Reason: Nausea/Vomiting Last Admin: 09/13/17 04:01 Dose: 8 mg Pantoprazole Sodium (Protonix Ec Tab) 40 mg PO DAILY [facility] Last Admin: 09/12/17 10:51 Dose: 40 mg Sucralfate (Carafate Oral Susp) 1 gm PO [facility] Last Admin: 09/12/17 23:00 Dose: 1 gm - Labs Labs: 09/12/17 16:24 09/12/17 15:09 - Constitutional Appears: Non-toxic, No Acute Distress - Extremities Exam Additional comments: B/L LE exam: VASC- pedal pulses fully palpable b/l (grade 2/4), cap refill < 3 sec to all digits x10, cap refill is brisk to all toes, 3rd digit b/l appears grossly edematous circumferentially NEURO- gross and protective pedal sensation is intact BL DERM- toenails 1-2 on b/l are thickened and discolored, hypergranulation tissue is noted to nail bed of 3rd digiti b/l with no evidence of drainage, neg malodor , neg erythema (distal aspect of both toes appear to have darkened skin changes) , well healed cicatrix is noted to 4th interspace of right foot (previous ulceration) ORTHO -tenderness to palp of b/l 3rd toe and also to palp of lateral nail border left hallux - Neurological Exam Neurological Exam: Alert, Awake, Oriented x3 - Psychiatric Exam Psychiatric exam: Normal Affect, Normal Mood Assessment and Plan - Assessment and Plan (Free Text) Assessment: 31 yo diabetic female pt w/ painful/edematous 3rd digit b/l feet possibly 2/2 osteomyelitis. Plan: Pt S&E at the bedside w/ Dr. Noble present Chart and labs reviewed: afebrile, no leukocytosis ESR is elevated (52), CRP is WNL (1.37) B/L foot x-rays reviewed (my read): lucency/disintegration noted to proximal middle phalanges b/l 3rd digit with soft tissue swelling. Awaiting official xray report 3rd toes b/l scrubbed with peroxide/saline mix pt advised to keep feet clean and dry and to wear hospital socks. Per Dr. Noble no need for MRI at this time, recommend c/w IV vanco and local wound care, f/u ID recs as per Dr. Pinto Will follow.
[2017-09-13] MEDS: Pantoprazole 40 mg EC Tab PO SCH (12:04)
[2017-09-13] MEDS: NIFEdipine 30 mg ER Tab PO SCH (12:05)
--- NOTE | 2017-09-13 17:18 | RAD ---
PROCEDURE: Bilateral Feet Radiographs. HISTORY: ulcer 3rd toe b/l (r/o OM) COMPARISON: None. FINDINGS: BONES: Right Foot: Osseous destruction of portions of 3rd middle and distal phalanx. Old fracture 4th metatarsal with cystic changes -incomplete healing suspect. Left Foot: Osseous destruction of portions of 3rd middle and distal phalanx JOINTS: Right Foot: Normal. No osteoarthritis. Left Foot: Normal. No osteoarthritis. SOFT TISSUES: Right Foot: Increased density and soft tissue swelling 3rd toe Left Foot: Increased density and soft tissue swelling 3rd toe OTHER FINDINGS: None. IMPRESSION: Findings compatible with bilateral ir toe cellulitis with bilateral osteomyelitis. Subacute to chronic left 4th proximal metatarsal fracture with cystic changes - incomplete healing inferred
--- NOTE | 2017-09-13 18:45 | CP.PCM.PN ---
Subjective - Date & Time of Evaluation Date of Evaluation: 09/13/17 Time of Evaluation: 18:45 Objective - Vital Signs/Intake and Output Vital Signs (last 24 hours): Temp Pulse Resp BP Pulse Ox 97.6 F 88 20 176/108 H 97 09/13/17 15:59 09/13/17 15:59 09/13/17 15:59 09/13/17 15:59 09/13/17 15:59 Intake and Output: 09/13/17 09/13/17 06:59 18:59 Intake Total 200 Balance 200 - Medications Medications: Current Medications Calcium Acetate (Phoslo) 667 mg PO TIDCC [facility] Last Admin: 09/13/17 18:15 Dose: 667 mg Clonidine HCl (Catapres) 0.3 mg PO BID [facility] Last Admin: 09/13/17 18:13 Dose: 0.3 mg Dextrose (Dextrose 50% Inj) 0 ml IV STAT PRN; Protocol PRN Reason: Hypoglycemia Protocol Last Admin: 09/10/17 17:40 Dose: 50 ml Dextrose (Glutose 15) 0 gm PO ONCE PRN; Protocol PRN Reason: Hypoglycemia Protocol Last Admin: 09/10/17 06:35 Dose: 15 gm Diphenhydramine HCl (Benadryl) 25 mg IVP Q3 [facility] Last Admin: 09/13/17 18:16 Dose: 25 mg Diphenhydramine HCl (Benadryl) 25 mg IVP ONCE PRN PRN Reason: body itchiness Last Admin: 09/12/17 15:14 Dose: 25 mg Docusate Sodium (Colace) 100 mg PO TID [facility] Last Admin: 09/13/17 18:14 Dose: 100 mg Epoetin James (Procrit) 10,000 unit IV MWF [facility] Last Admin: 09/12/17 18:03 Dose: 10,000 unit Ergocalciferol (Drisdol 50,000 Intl Units Cap) 1 cap PO QWK [facility] Last Admin: 09/11/17 10:02 Dose: 1 cap Gabapentin (Neurontin) 300 mg PO DAILY [facility] Last Admin: 09/13/17 12:04 Dose: 300 mg Glucagon (Glucagen Diagnostic Kit) 0 mg IM STAT PRN; Protocol PRN Reason: Hypoglycemia Protocol Hydralazine HCl (Apresoline) 25 mg PO QID [facility] Last Admin: 09/13/17 18:15 Dose: 25 mg Hydromorphone HCl (Dilaudid) 2 mg IVP Q3 [facility] Last Admin: 09/13/17 18:14 Dose: 2 mg Insulin Glargine (Lantus) 25 unit SC [facility] Last Admin: 09/12/17 23:00 Dose: 25 unit Insulin Human Regular (Novolin R) 0 unit SC [facility] PRN Reason: Protocol Last Admin: 09/13/17 12:20 Dose: 3 unit Metoclopramide HCl (Reglan) 10 mg PO DAILY [facility] Last Admin: 09/13/17 12:04 Dose: 10 mg Nifedipine (Procardia Xl) 30 mg PO DAILY [facility] Last Admin: 09/13/17 12:05 Dose: 30 mg Ondansetron HCl (Zofran Odt) 8 mg PO Q6 PRN PRN Reason: Nausea/Vomiting Last Admin: 09/13/17 04:01 Dose: 8 mg Pantoprazole Sodium (Protonix Ec Tab) 40 mg PO DAILY [facility] Last Admin: 09/13/17 12:04 Dose: 40 mg Sucralfate (Carafate Oral Susp) 1 gm PO [facility] Last Admin: 09/13/17 18:13 Dose: 1 gm - Labs Labs: 09/12/17 16:24 09/12/17 15:09
--- NOTE | 2017-09-13 21:37 | CP.PCM.PN ---
Subjective - Date & Time of Evaluation Date of Evaluation: 09/13/17 Time of Evaluation: 13:00 - Subjective Subjective: SEEN ON RENAL F/U ON HD M W F AND SAT INSTRUCTED ABOUT FLIUD RESTRICTION AMOUNG HER RENAL DIET FEELS BETTER Objective - Vital Signs/Intake and Output Vital Signs (last 24 hours): Temp Pulse Resp BP Pulse Ox 97.6 F 81 20 168/94 H 97 09/13/17 15:59 09/13/17 20:00 09/13/17 15:59 09/13/17 20:00 09/13/17 15:59 - Medications Medications: Current Medications Calcium Acetate (Phoslo) 667 mg PO TIDCC [facility] Last Admin: 09/13/17 18:15 Dose: 667 mg Clonidine HCl (Catapres) 0.3 mg PO BID [facility] Last Admin: 09/13/17 18:13 Dose: 0.3 mg Dextrose (Dextrose 50% Inj) 0 ml IV STAT PRN; Protocol PRN Reason: Hypoglycemia Protocol Last Admin: 09/10/17 17:40 Dose: 50 ml Dextrose (Glutose 15) 0 gm PO ONCE PRN; Protocol PRN Reason: Hypoglycemia Protocol Last Admin: 09/10/17 06:35 Dose: 15 gm Diphenhydramine HCl (Benadryl) 25 mg IVP Q3 [facility] Last Admin: 09/13/17 21:16 Dose: 25 mg Diphenhydramine HCl (Benadryl) 25 mg IVP ONCE PRN PRN Reason: body itchiness Last Admin: 09/12/17 15:14 Dose: 25 mg Docusate Sodium (Colace) 100 mg PO TID [facility] Last Admin: 09/13/17 18:14 Dose: 100 mg Epoetin James (Procrit) 10,000 unit IV MWF [facility] Last Admin: 09/12/17 18:03 Dose: 10,000 unit Ergocalciferol (Drisdol 50,000 Intl Units Cap) 1 cap PO QWK [facility] Last Admin: 09/11/17 10:02 Dose: 1 cap Gabapentin (Neurontin) 300 mg PO DAILY [facility] Last Admin: 09/13/17 12:04 Dose: 300 mg Glucagon (Glucagen Diagnostic Kit) 0 mg IM STAT PRN; Protocol PRN Reason: Hypoglycemia Protocol Hydralazine HCl (Apresoline) 25 mg PO QID [facility] Last Admin: 09/13/17 18:15 Dose: 25 mg Hydromorphone HCl (Dilaudid) 2 mg IVP Q3 [facility] Last Admin: 09/13/17 21:15 Dose: 2 mg Insulin Glargine (Lantus) 25 unit SC HS [facility] Last Admin: 09/12/17 23:00 Dose: 25 unit Insulin Human Regular (Novolin R) 0 unit SC [facility] PRN Reason: Protocol Last Admin: 09/13/17 18:30 Dose: 1 unit Metoclopramide HCl (Reglan) 10 mg PO DAILY [facility] Last Admin: 09/13/17 12:04 Dose: 10 mg Nifedipine (Procardia Xl) 30 mg PO DAILY [facility] Last Admin: 09/13/17 12:05 Dose: 30 mg Ondansetron HCl (Zofran Odt) 8 mg PO Q6 PRN PRN Reason: Nausea/Vomiting Last Admin: 09/13/17 04:01 Dose: 8 mg Pantoprazole Sodium (Protonix Ec Tab) 40 mg PO DAILY [facility] Last Admin: 09/13/17 12:04 Dose: 40 mg Sevelamer Carbonate (Renvela) 0.8 gm PO TIDCC [facility] Vitamin B Complex/Vit C/Folic Acid (Nephro-Denny) 1 tab PO 0800 [facility] - Labs Labs: 09/12/17 16:24 09/12/17 15:09 Assessment and Plan - Assessment and Plan (Free Text) Assessment: ESRD ON HD M W F AND SAT ANEMIA OF CKD .. ON EPO AND FERRLICIT MMP P : C/O CURRENT CARE C/O PRESENT MANAGEMENT ADD RENVELA FOR BETTER CONTROLE OF PHOS ADD FARHAN DENNY
[2017-09-13] MEDS: (Lantus) Insulin Glargine, Recombinant SC SCH (22:29)
[2017-09-14] MEDS: DiphenhydrAMINE 50 mg/ml Inj IVP SCH ×8 (00:50→21:54)
[2017-09-14] MEDS: (Novolin R) Insulin Human Regular 100 units/ml vial SC SCH ×4 (07:34→21:22)
[2017-09-14 07:54] LABS: BASO # 0.1 K/uL (0.0-0.2); BASO % 1.5 % (0.0-2.0); EOS # 0.6 K/uL (0.0-0.7); EOS % 12.3 % (0.0-4.0); HEMOGLOBIN 8.8 g/dL (11.0-16.0); LYMPH # 1.4 K/uL (1.0-4.3); LYMPH % 28.8 % (20.0-40.0); MEAN CELL VOLUME 95.7 fL (81.0-99.0); MEAN CORPUSCULAR HEMOGLOBIN 31.7 pg (27.0-31.0); MEAN CORPUSCULAR HGB CONC 33.1 g/dL (33.0-37.0); MEAN PLATELET VOLUME 8.3 fL (7.2-11.7); MONO # 0.5 K/uL (0.0-0.8); MONO % 9.9 % (0.0-10.0); NEUT # 2.4 K/uL (1.8-7.0); NEUT % 47.5 % (50.0-75.0); RBC 2.79 Mil/uL (3.80-5.20); RED CELL DISTRIBUTION WIDTH 17.8 % (11.5-14.5)
[2017-09-14 08:00] LABS: ALB/GLOB RATIO 1.1 (1.0-2.1); ALBUMIN 3.9 g/dL (3.5-5.0); CALCIUM 7.9 mg/dl (8.6-10.4)
[2017-09-14] MEDS: Multivitamin Vitamin B Complex (Nephro-Vite) Tab PO SCH (08:22)
[2017-09-14] MEDS: Sevelamer Carb 0.8 gm/Packet PO SCH ×3 (09:05→18:04)
[2017-09-14] MEDS: Pantoprazole 40 mg EC Tab PO SCH (10:21)
[2017-09-14] MEDS: NIFEdipine 30 mg ER Tab PO SCH (11:10)
--- NOTE | 2017-09-14 15:38 | CP.PCM.PN ---
Subjective - Date & Time of Evaluation Date of Evaluation: 09/14/17 Time of Evaluation: 15:38 Objective - Vital Signs/Intake and Output Vital Signs (last 24 hours): Temp Pulse Resp BP Pulse Ox 97.4 F L 86 18 217/97 H 96 09/14/17 13:50 09/14/17 13:50 09/14/17 13:50 09/14/17 15:00 09/14/17 13:50 Intake and Output: 09/14/17 09/14/17 06:59 18:59 Intake Total 650 Balance 650 - Medications Medications: Current Medications Calcium Acetate (Phoslo) 667 mg PO TIDCC [facility] Last Admin: 09/14/17 12:29 Dose: Not Given Clonidine HCl (Catapres) 0.3 mg PO BID [facility] Last Admin: 09/14/17 11:08 Dose: Not Given Dextrose (Dextrose 50% Inj) 0 ml IV STAT PRN; Protocol PRN Reason: Hypoglycemia Protocol Last Admin: 09/10/17 17:40 Dose: 50 ml Dextrose (Glutose 15) 0 gm PO ONCE PRN; Protocol PRN Reason: Hypoglycemia Protocol Last Admin: 09/10/17 06:35 Dose: 15 gm Diphenhydramine HCl (Benadryl) 25 mg IVP Q3 [facility] Last Admin: 09/14/17 12:53 Dose: 25 mg Diphenhydramine HCl (Benadryl) 25 mg IVP ONCE PRN PRN Reason: body itchiness Last Admin: 09/12/17 15:14 Dose: 25 mg Docusate Sodium (Colace) 100 mg PO TID [facility] Last Admin: 09/14/17 13:32 Dose: Not Given Epoetin James (Procrit) 10,000 unit IV MWF [facility] Last Admin: 09/12/17 18:03 Dose: 10,000 unit Ergocalciferol (Drisdol 50,000 Intl Units Cap) 1 cap PO QWK [facility] Last Admin: 09/11/17 10:02 Dose: 1 cap Gabapentin (Neurontin) 300 mg PO DAILY [facility] Last Admin: 09/14/17 10:22 Dose: 300 mg Glucagon (Glucagen Diagnostic Kit) 0 mg IM STAT PRN; Protocol PRN Reason: Hypoglycemia Protocol Hydralazine HCl (Apresoline) 25 mg PO QID [facility] Last Admin: 09/14/17 13:32 Dose: Not Given Hydromorphone HCl (Dilaudid) 2 mg IVP Q3 [facility] Last Admin: 09/14/17 12:53 Dose: 2 mg Vancomycin/Sodium Chloride (Vancomycin 1 Gm/Ns 200 Ml) 1 gm in 200 mls @ 133 mls/hr IVPB MWF [facility] Stop: 09/22/17 09:01 Insulin Glargine (Lantus) 25 unit SC HS [facility] Last Admin: 09/13/17 22:29 Dose: 25 unit Insulin Human Regular (Novolin R) 0 unit SC A[facility] PRN Reason: Protocol Last Admin: 09/14/17 11:43 Dose: Not Given Metoclopramide HCl (Reglan) 10 mg PO DAILY [facility] Last Admin: 09/14/17 11:10 Dose: Not Given Nifedipine (Procardia Xl) 30 mg PO DAILY [facility] Last Admin: 09/14/17 11:10 Dose: Not Given Ondansetron HCl (Zofran Odt) 8 mg PO Q6 PRN PRN Reason: Nausea/Vomiting Last Admin: 09/13/17 04:01 Dose: 8 mg Pantoprazole Sodium (Protonix Ec Tab) 40 mg PO DAILY [facility] Last Admin: 09/14/17 10:21 Dose: 40 mg Sevelamer Carbonate (Renvela) 0.8 gm PO TIDCC [facility] Last Admin: 09/14/17 12:30 Dose: Not Given Vitamin B Complex/Vit C/Folic Acid (Nephro-Vamshi) 1 tab PO 0800 [facility] Last Admin: 09/14/17 08:22 Dose: 1 tab - Labs Labs: 09/14/17 07:35 09/14/17 07:35
[2017-09-14] MEDS ORDERED: Dextrose 50% VIAL Inj (50 ml) IV ONE (16:14)
[2017-09-14] MEDS: Dextrose 50% SYRINGE Inj (50 ml) IV PRN (16:20)
--- NOTE | 2017-09-14 16:26 | CP.PCM.PN ---
Subjective - Date & Time of Evaluation Date of Evaluation: 09/14/17 Time of Evaluation: 15:00 - Subjective Subjective: SEEN ON RENAL F/U SEEN ON HD FEELS IMPROVED Objective - Vital Signs/Intake and Output Vital Signs (last 24 hours): Temp Pulse Resp BP Pulse Ox 97.4 F L 86 18 217/97 H 96 09/14/17 13:50 09/14/17 13:50 09/14/17 13:50 09/14/17 15:00 09/14/17 13:50 Intake and Output: 09/14/17 09/14/17 06:59 18:59 Intake Total 650 400 Balance 650 400 - Medications Medications: Current Medications Calcium Acetate (Phoslo) 667 mg PO TIDCC [facility] Last Admin: 09/14/17 12:29 Dose: Not Given Clonidine HCl (Catapres) 0.3 mg PO BID [facility] Last Admin: 09/14/17 11:08 Dose: Not Given Dextrose (Dextrose 50% Inj) 0 ml IV STAT PRN; Protocol PRN Reason: Hypoglycemia Protocol Last Admin: 09/14/17 16:20 Dose: 50 ml Dextrose (Glutose 15) 0 gm PO ONCE PRN; Protocol PRN Reason: Hypoglycemia Protocol Last Admin: 09/10/17 06:35 Dose: 15 gm Diphenhydramine HCl (Benadryl) 25 mg IVP Q3 [facility] Last Admin: 09/14/17 12:53 Dose: 25 mg Diphenhydramine HCl (Benadryl) 25 mg IVP ONCE PRN PRN Reason: body itchiness Last Admin: 09/12/17 15:14 Dose: 25 mg Docusate Sodium (Colace) 100 mg PO TID [facility] Last Admin: 09/14/17 13:32 Dose: Not Given Epoetin James (Procrit) 10,000 unit IV MWF [facility] Last Admin: 09/12/17 18:03 Dose: 10,000 unit Ergocalciferol (Drisdol 50,000 Intl Units Cap) 1 cap PO QWK [facility] Last Admin: 09/11/17 10:02 Dose: 1 cap Gabapentin (Neurontin) 300 mg PO DAILY [facility] Last Admin: 09/14/17 10:22 Dose: 300 mg Glucagon (Glucagen Diagnostic Kit) 0 mg IM STAT PRN; Protocol PRN Reason: Hypoglycemia Protocol Hydralazine HCl (Apresoline) 25 mg PO QID [facility] Last Admin: 09/14/17 13:32 Dose: Not Given Hydromorphone HCl (Dilaudid) 2 mg IVP Q3 [facility] Last Admin: 09/14/17 12:53 Dose: 2 mg Vancomycin/Sodium Chloride (Vancomycin 1 Gm/Ns 200 Ml) 1 gm in 200 mls @ 133 mls/hr IVPB MWF [facility] Stop: 09/22/17 09:01 Insulin Glargine (Lantus) 25 unit SC HS [facility] Last Admin: 09/13/17 22:29 Dose: 25 unit Insulin Human Regular (Novolin R) 0 unit SC ACHS [facility] PRN Reason: Protocol Last Admin: 09/14/17 11:43 Dose: Not Given Metoclopramide HCl (Reglan) 10 mg PO DAILY [facility] Last Admin: 09/14/17 11:10 Dose: Not Given Nifedipine (Procardia Xl) 30 mg PO DAILY [facility] Last Admin: 09/14/17 11:10 Dose: Not Given Ondansetron HCl (Zofran Odt) 8 mg PO Q6 PRN PRN Reason: Nausea/Vomiting Last Admin: 09/13/17 04:01 Dose: 8 mg Pantoprazole Sodium (Protonix Ec Tab) 40 mg PO DAILY [facility] Last Admin: 09/14/17 10:21 Dose: 40 mg Sevelamer Carbonate (Renvela) 0.8 gm PO TIDCC [facility] Last Admin: 09/14/17 12:30 Dose: Not Given Vitamin B Complex/Vit C/Folic Acid (Nephro-Vamshi) 1 tab PO 0800 [facility] Last Admin: 09/14/17 08:22 Dose: 1 tab - Labs Labs: 09/14/17 07:35 09/14/17 07:35 Assessment and Plan - Assessment and Plan (Free Text) Assessment: ESRD ON HD M W F AND SAT .. TO BE C/O ANEMIA OF CKD .. ON EPO AND FERRLICIT .. TO BE C/O MMP P : C/O CURRENT CARE C/O PRESENT MEDS
[2017-09-14] MEDS: Epoetin Alfa 10,000 unit/ml Dialysis IV SCH (16:42)
[2017-09-14] MEDS: DiphenhydrAMINE 50 mg/ml Inj IVP PRN (17:17)
--- NOTE | 2017-09-14 19:36 | CP.PCM.PN ---
Subjective - Date & Time of Evaluation Date of Evaluation: 09/14/17 Time of Evaluation: 08:00 - Subjective Subjective: IV Vanco reordered for chronic OM Objective - Vital Signs/Intake and Output Vital Signs (last 24 hours): Temp Pulse Resp BP Pulse Ox 98.1 F 106 H 20 134/91 H 100 09/14/17 17:00 09/14/17 17:00 09/14/17 17:00 09/14/17 17:00 09/14/17 17:00 Intake and Output: 09/14/17 09/15/17 18:59 06:59 Intake Total 400 Balance 400 - Medications Medications: Current Medications Calcium Acetate (Phoslo) 667 mg PO TIDCC [facility] Last Admin: 09/14/17 18:04 Dose: Not Given Clonidine HCl (Catapres) 0.3 mg PO BID [facility] Last Admin: 09/14/17 18:13 Dose: 0.3 mg Dextrose (Dextrose 50% Inj) 0 ml IV STAT PRN; Protocol PRN Reason: Hypoglycemia Protocol Last Admin: 09/14/17 16:20 Dose: 50 ml Dextrose (Glutose 15) 0 gm PO ONCE PRN; Protocol PRN Reason: Hypoglycemia Protocol Last Admin: 09/10/17 06:35 Dose: 15 gm Diphenhydramine HCl (Benadryl) 25 mg IVP Q3 [facility] Last Admin: 09/14/17 18:54 Dose: 25 mg Diphenhydramine HCl (Benadryl) 25 mg IVP ONCE PRN PRN Reason: body itchiness Last Admin: 09/14/17 17:17 Dose: 25 mg Docusate Sodium (Colace) 100 mg PO TID [facility] Last Admin: 09/14/17 18:13 Dose: 100 mg Epoetin James (Procrit) 10,000 unit IV MWF [facility] Last Admin: 09/14/17 16:42 Dose: 10,000 unit Ergocalciferol (Drisdol 50,000 Intl Units Cap) 1 cap PO QWK [facility] Last Admin: 09/11/17 10:02 Dose: 1 cap Gabapentin (Neurontin) 300 mg PO DAILY [facility] Last Admin: 09/14/17 10:22 Dose: 300 mg Glucagon (Glucagen Diagnostic Kit) 0 mg IM STAT PRN; Protocol PRN Reason: Hypoglycemia Protocol Hydralazine HCl (Apresoline) 25 mg PO QID [facility] Last Admin: 09/14/17 18:05 Dose: Not Given Hydromorphone HCl (Dilaudid) 2 mg IVP Q3 [facility] Last Admin: 09/14/17 18:55 Dose: 2 mg Vancomycin/Sodium Chloride (Vancomycin 1 Gm/Ns 200 Ml) 1 gm in 200 mls @ 133 mls/hr IVPB MWF [facility] Stop: 09/22/17 09:01 Insulin Glargine (Lantus) 25 unit SC HS [facility] Last Admin: 09/13/17 22:29 Dose: 25 unit Insulin Human Regular (Novolin R) 0 unit SC ACHS [facility] PRN Reason: Protocol Last Admin: 09/14/17 18:03 Dose: Not Given Metoclopramide HCl (Reglan) 10 mg PO DAILY [facility] Last Admin: 09/14/17 11:10 Dose: Not Given Nifedipine (Procardia Xl) 30 mg PO DAILY [facility] Last Admin: 09/14/17 11:10 Dose: Not Given Ondansetron HCl (Zofran Odt) 8 mg PO Q6 PRN PRN Reason: Nausea/Vomiting Last Admin: 09/13/17 04:01 Dose: 8 mg Pantoprazole Sodium (Protonix Ec Tab) 40 mg PO DAILY [facility] Last Admin: 09/14/17 10:21 Dose: 40 mg Sevelamer Carbonate (Renvela) 0.8 gm PO TIDCC [facility] Last Admin: 09/14/17 18:04 Dose: Not Given Vitamin B Complex/Vit C/Folic Acid (Nephro-Vamshi) 1 tab PO 0800 [facility] Last Admin: 09/14/17 08:22 Dose: 1 tab - Labs Labs: 09/14/17 07:35 09/14/17 07:35 - Constitutional Appears: Non-toxic - Head Exam Head Exam: NORMOCEPHALIC - Eye Exam Eye Exam: PERRL - ENT Exam ENT Exam: Mucous Membranes Dry - Neck Exam Neck Exam: absent: Lymphadenopathy - Respiratory Exam Respiratory Exam: Decreased Breath Sounds - Cardiovascular Exam Cardiovascular Exam: REGULAR RHYTHM - GI/Abdominal Exam GI & Abdominal Exam: Distended - Rectal Exam Rectal Exam: Deferred - Exam Exam: NORMAL INSPECTION - Extremities Exam Extremities Exam: Pedal Edema, Tenderness - Back Exam Back Exam: absent: CVA tenderness (L), CVA tenderness (R) - Neurological Exam Neurological Exam: Alert, Awake, Oriented x3 Assessment and Plan (1) Cellulitis and abscess of foot Status: Acute (2) ESRD (end stage renal disease) on dialysis Status: Acute (3) History of diabetic gastroparesis Status: Acute (4) Accelerated essential hypertension Status: Acute
[2017-09-14] MEDS: (Lantus) Insulin Glargine, Recombinant SC SCH (21:55)
[2017-09-15] MEDS: DiphenhydrAMINE 50 mg/ml Inj IVP SCH ×7 (00:58→21:45)
[2017-09-15 07:16] LABS: BASO # 0.1 K/uL (0.0-0.2); BASO % 1.5 % (0.0-2.0); EOS # 0.5 K/uL (0.0-0.7); EOS % 10.2 % (0.0-4.0); HEMOGLOBIN 8.9 g/dL (11.0-16.0); LYMPH # 1.2 K/uL (1.0-4.3); LYMPH % 21.9 % (20.0-40.0); MEAN CORPUSCULAR HEMOGLOBIN 32.9 pg (27.0-31.0); MEAN CORPUSCULAR HGB CONC 34.2 g/dL (33.0-37.0); MEAN PLATELET VOLUME 8.5 fL (7.2-11.7); MONO # 0.5 K/uL (0.0-0.8); MONO % 9.7 % (0.0-10.0); NEUT % 56.7 % (50.0-75.0); RBC 2.71 Mil/uL (3.80-5.20); RED CELL DISTRIBUTION WIDTH 17.7 % (11.5-14.5); WHITE BLOOD COUNT 5.3 K/uL (4.8-10.8)
[2017-09-15] MEDS: Multivitamin Vitamin B Complex (Nephro-Vite) Tab PO SCH (08:15)
[2017-09-15 08:22] LABS: ALB/GLOB RATIO 1.1 (1.0-2.1); ALBUMIN 3.7 g/dL (3.5-5.0); CALCIUM 7.9 mg/dl (8.6-10.4)
[2017-09-15] MEDS: (Novolin R) Insulin Human Regular 100 units/ml vial SC SCH ×4 (08:36→21:45)
[2017-09-15] MEDS: Sevelamer Carb 0.8 gm/Packet PO SCH ×3 (08:36→17:52)
[2017-09-15] MEDS: NIFEdipine 30 mg ER Tab PO SCH (09:08)
[2017-09-15] MEDS: Pantoprazole 40 mg EC Tab PO SCH (09:08)
[2017-09-15] MEDS ORDERED: DiphenhydrAMINE 50 mg/ml Inj IM ONE (13:36)
--- NOTE | 2017-09-15 15:10 | CP.PCM.PN ---
Subjective - Date & Time of Evaluation Date of Evaluation: 09/15/17 Time of Evaluation: 11:00 - Subjective Subjective: Podiatry Progress Note- Dr. Tilley: 31 yo diabetic female seen and evaluated at bedside for b/l 3rd toe pain/ swelling. Patient is seen sitting at bedside and in NAD. Patient denies f/n/v/c/ sob/cp/weakness or calf pain at this time. Patient denies acute overnight events. Dressing is c/d/i. Patient was sleepy during visitation, falling asleep during interview. Patient has no other pedal complaints at this time. Objective - Vital Signs/Intake and Output Vital Signs (last 24 hours): Temp Pulse Resp BP Pulse Ox 97.5 F L 83 20 190/110 H 100 09/15/17 07:40 09/15/17 07:40 09/15/17 07:40 09/15/17 07:40 09/15/17 07:40 Intake and Output: 09/15/17 09/15/17 06:59 18:59 Intake Total 250 Balance 250 - Medications Medications: Current Medications Calcium Acetate (Phoslo) 667 mg PO TIDCC [facility] Last Admin: 09/15/17 12:59 Dose: Not Given Clonidine HCl (Catapres) 0.3 mg PO BID [facility] Last Admin: 09/15/17 09:08 Dose: 0.3 mg Dextrose (Dextrose 50% Inj) 0 ml IV STAT PRN; Protocol PRN Reason: Hypoglycemia Protocol Last Admin: 09/14/17 16:20 Dose: 50 ml Dextrose (Glutose 15) 0 gm PO ONCE PRN; Protocol PRN Reason: Hypoglycemia Protocol Last Admin: 09/10/17 06:35 Dose: 15 gm Diphenhydramine HCl (Benadryl) 25 mg IVP Q3 [facility] Last Admin: 09/15/17 11:08 Dose: 25 mg Diphenhydramine HCl (Benadryl) 25 mg IVP ONCE PRN PRN Reason: body itchiness Last Admin: 09/14/17 17:17 Dose: 25 mg Docusate Sodium (Colace) 100 mg PO TID [facility] Last Admin: 09/15/17 14:59 Dose: Not Given Epoetin James (Procrit) 10,000 unit IV MWF [facility] Last Admin: 09/14/17 16:42 Dose: 10,000 unit Ergocalciferol (Drisdol 50,000 Intl Units Cap) 1 cap PO QWK [facility] Last Admin: 09/11/17 10:02 Dose: 1 cap Gabapentin (Neurontin) 300 mg PO DAILY [facility] Last Admin: 09/15/17 09:08 Dose: 300 mg Glucagon (Glucagen Diagnostic Kit) 0 mg IM STAT PRN; Protocol PRN Reason: Hypoglycemia Protocol Hydralazine HCl (Apresoline) 25 mg PO QID [facility] Last Admin: 09/15/17 09:08 Dose: 25 mg Hydromorphone HCl (Dilaudid) 2 mg IVP Q3 [facility] Last Admin: 09/15/17 14:05 Dose: 2 mg Vancomycin/Sodium Chloride (Vancomycin 1 Gm/Ns 200 Ml) 1 gm in 200 mls @ 133 mls/hr IVPB MWF [facility] Stop: 09/22/17 09:01 Insulin Glargine (Lantus) 25 unit SC HS [facility] Last Admin: 09/14/17 21:55 Dose: 25 unit Insulin Human Regular (Novolin R) 0 unit SC ACHS [facility] PRN Reason: Protocol Last Admin: 09/15/17 12:30 Dose: 2 unit Metoclopramide HCl (Reglan) 10 mg PO DAILY [facility] Last Admin: 09/15/17 09:08 Dose: 10 mg Nifedipine (Procardia Xl) 30 mg PO DAILY [facility] Last Admin: 09/15/17 09:08 Dose: 30 mg Ondansetron HCl (Zofran Odt) 8 mg PO Q6 PRN PRN Reason: Nausea/Vomiting Last Admin: 09/13/17 04:01 Dose: 8 mg Pantoprazole Sodium (Protonix Ec Tab) 40 mg PO DAILY [facility] Last Admin: 09/15/17 09:08 Dose: 40 mg Sevelamer Carbonate (Renvela) 0.8 gm PO TIDCC [facility] Last Admin: 09/15/17 12:55 Dose: Not Given Vitamin B Complex/Vit C/Folic Acid (Nephro-Vamshi) 1 tab PO 0800 [facility] Last Admin: 09/15/17 08:15 Dose: 1 tab - Labs Labs: 09/15/17 06:47 09/15/17 06:47 - Constitutional Appears: Well, Non-toxic, No Acute Distress - Extremities Exam Additional comments: B/L LE exam: VASC- pedal pulses fully palpable b/l (grade 2/4), cap refill < 3 sec to all digits x10, cap refill is brisk to all toes, 3rd digit b/l appears grossly edematous circumferentially NEURO- gross and protective pedal sensation is intact BL DERM- toenails 1-2 on b/l are thickened and discolored, hypergranulation tissue is noted to nail bed of 3rd digiti b/l with no evidence of drainage, neg malodor , neg erythema (distal aspect of both toes appear to have darkened skin changes) , well healed cicatrix is noted to 4th interspace of right foot (previous ulceration) ORTHO -tenderness to palp of b/l 3rd toe and also to palp of lateral nail border left hallux - Neurological Exam Neurological Exam: Alert, Oriented x3 - Psychiatric Exam Psychiatric exam: Normal Affect, Normal Mood Assessment and Plan - Assessment and Plan (Free Text) Assessment: 31 yo diabetic female pt w/ painful/edematous 3rd digit b/l feet possibly 2/2 osteomyelitis. Plan: Patient seen and evaluated at bedside Discussed plan in detail with attending Dr. Tilley Chart and labs reviewed: afebrile, no leukocytosis ESR is elevated (52), CRP is WNL (1.37) X- ray IMPRESSION: "Findings compatible with bilateral ir toe cellulitis with bilateral osteomyelitis. Subacute to chronic left 4th proximal metatarsal fracture with cystic changes - incomplete healing inferred" 3rd toes b/l scrubbed with peroxide/saline mix pt advised to keep feet clean and dry and to wear hospital socks. Per Dr. Tilley no need for MRI at this time, recommend c/w IV vanco and local wound care, f/u ID recs as per Dr. Pinto Will follow patient while in house.
[2017-09-15] MEDS ORDERED: DiphenhydrAMINE 50 mg/ml Inj IVP ONE (15:37)
--- NOTE | 2017-09-15 17:49 | CP.PCM.PN ---
Subjective - Date & Time of Evaluation Date of Evaluation: 09/15/17 Time of Evaluation: 17:48 Objective - Vital Signs/Intake and Output Vital Signs (last 24 hours): Temp Pulse Resp BP Pulse Ox 98.7 F 81 20 97/72 L 100 09/15/17 16:40 09/15/17 16:40 09/15/17 16:40 09/15/17 16:40 09/15/17 16:40 Intake and Output: 09/15/17 09/15/17 06:59 18:59 Intake Total 250 Balance 250 - Medications Medications: Current Medications Calcium Acetate (Phoslo) 667 mg PO TIDCC [facility] Last Admin: 09/15/17 12:59 Dose: Not Given Clonidine HCl (Catapres) 0.3 mg PO BID [facility] Last Admin: 09/15/17 09:08 Dose: 0.3 mg Dextrose (Dextrose 50% Inj) 0 ml IV STAT PRN; Protocol PRN Reason: Hypoglycemia Protocol Last Admin: 09/14/17 16:20 Dose: 50 ml Dextrose (Glutose 15) 0 gm PO ONCE PRN; Protocol PRN Reason: Hypoglycemia Protocol Last Admin: 09/10/17 06:35 Dose: 15 gm Diphenhydramine HCl (Benadryl) 25 mg IVP Q3 [facility] Last Admin: 09/15/17 11:08 Dose: 25 mg Diphenhydramine HCl (Benadryl) 25 mg IVP ONCE PRN PRN Reason: body itchiness Last Admin: 09/14/17 17:17 Dose: 25 mg Docusate Sodium (Colace) 100 mg PO TID [facility] Last Admin: 09/15/17 14:59 Dose: Not Given Epoetin James (Procrit) 10,000 unit IV MWF [facility] Last Admin: 09/14/17 16:42 Dose: 10,000 unit Ergocalciferol (Drisdol 50,000 Intl Units Cap) 1 cap PO QWK [facility] Last Admin: 09/11/17 10:02 Dose: 1 cap Gabapentin (Neurontin) 300 mg PO DAILY [facility] Last Admin: 09/15/17 09:08 Dose: 300 mg Glucagon (Glucagen Diagnostic Kit) 0 mg IM STAT PRN; Protocol PRN Reason: Hypoglycemia Protocol Hydralazine HCl (Apresoline) 25 mg PO QID [facility] Last Admin: 09/15/17 14:00 Dose: Not Given Hydromorphone HCl (Dilaudid) 2 mg IVP Q3 [facility] Last Admin: 09/15/17 14:05 Dose: 2 mg Vancomycin/Sodium Chloride (Vancomycin 1 Gm/Ns 200 Ml) 1 gm in 200 mls @ 133 mls/hr IVPB MWF [facility] Stop: 09/22/17 09:01 Insulin Glargine (Lantus) 25 unit SC HS [facility] Last Admin: 09/14/17 21:55 Dose: 25 unit Insulin Human Regular (Novolin R) 0 unit SC ACHS [facility] PRN Reason: Protocol Last Admin: 09/15/17 12:30 Dose: 2 unit Metoclopramide HCl (Reglan) 10 mg PO DAILY [facility] Last Admin: 09/15/17 09:08 Dose: 10 mg Nifedipine (Procardia Xl) 30 mg PO DAILY [facility] Last Admin: 09/15/17 09:08 Dose: 30 mg Ondansetron HCl (Zofran Odt) 8 mg PO Q6 PRN PRN Reason: Nausea/Vomiting Last Admin: 09/13/17 04:01 Dose: 8 mg Pantoprazole Sodium (Protonix Ec Tab) 40 mg PO DAILY [facility] Last Admin: 09/15/17 09:08 Dose: 40 mg Sevelamer Carbonate (Renvela) 0.8 gm PO TIDCC [facility] Last Admin: 09/15/17 12:55 Dose: Not Given Vitamin B Complex/Vit C/Folic Acid (Nephro-Vamshi) 1 tab PO 0800 [facility] Last Admin: 09/15/17 08:15 Dose: 1 tab - Labs Labs: 09/15/17 06:47 09/15/17 06:47
--- NOTE | 2017-09-15 18:26 | CP.PCM.PN ---
Subjective - Date & Time of Evaluation Date of Evaluation: 09/15/17 Time of Evaluation: 18:24 - Subjective Subjective: just finished hd tx vss glenna proc has numbness in fingertips of both hands ??neuropathy?? chart and labs reviewed cont rx and support. Objective - Vital Signs/Intake and Output Vital Signs (last 24 hours): Temp Pulse Resp BP Pulse Ox 98.2 F 75 20 155/100 H 98 09/15/17 17:52 09/15/17 17:52 09/15/17 17:52 09/15/17 17:52 09/15/17 17:52 Intake and Output: 09/15/17 09/15/17 06:59 18:59 Intake Total 250 Balance 250 - Medications Medications: Current Medications Calcium Acetate (Phoslo) 667 mg PO TIDCC [facility] Last Admin: 09/15/17 17:52 Dose: 667 mg Clonidine HCl (Catapres) 0.3 mg PO BID [facility] Last Admin: 09/15/17 17:52 Dose: 0.3 mg Dextrose (Dextrose 50% Inj) 0 ml IV STAT PRN; Protocol PRN Reason: Hypoglycemia Protocol Last Admin: 09/14/17 16:20 Dose: 50 ml Dextrose (Glutose 15) 0 gm PO ONCE PRN; Protocol PRN Reason: Hypoglycemia Protocol Last Admin: 09/10/17 06:35 Dose: 15 gm Diphenhydramine HCl (Benadryl) 25 mg IVP Q3 [facility] Last Admin: 09/15/17 17:53 Dose: 25 mg Diphenhydramine HCl (Benadryl) 25 mg IVP ONCE PRN PRN Reason: body itchiness Last Admin: 09/14/17 17:17 Dose: 25 mg Docusate Sodium (Colace) 100 mg PO TID [facility] Last Admin: 09/15/17 17:52 Dose: 100 mg Epoetin James (Procrit) 10,000 unit IV MWF [facility] Last Admin: 09/14/17 16:42 Dose: 10,000 unit Ergocalciferol (Drisdol 50,000 Intl Units Cap) 1 cap PO QWK [facility] Last Admin: 09/11/17 10:02 Dose: 1 cap Gabapentin (Neurontin) 300 mg PO DAILY [facility] Last Admin: 09/15/17 09:08 Dose: 300 mg Glucagon (Glucagen Diagnostic Kit) 0 mg IM STAT PRN; Protocol PRN Reason: Hypoglycemia Protocol Hydralazine HCl (Apresoline) 25 mg PO QID [facility] Last Admin: 09/15/17 17:57 Dose: 25 mg Hydromorphone HCl (Dilaudid) 2 mg IVP Q3 [facility] Last Admin: 09/15/17 17:53 Dose: 2 mg Vancomycin/Sodium Chloride (Vancomycin 1 Gm/Ns 200 Ml) 1 gm in 200 mls @ 133 mls/hr IVPB MWF [facility] Stop: 09/22/17 09:01 Insulin Glargine (Lantus) 25 unit SC HS [facility] Last Admin: 09/14/17 21:55 Dose: 25 unit Insulin Human Regular (Novolin R) 0 unit SC ACHS [facility] PRN Reason: Protocol Last Admin: 09/15/17 12:30 Dose: 2 unit Metoclopramide HCl (Reglan) 10 mg PO DAILY [facility] Last Admin: 09/15/17 09:08 Dose: 10 mg Nifedipine (Procardia Xl) 30 mg PO DAILY [facility] Last Admin: 09/15/17 09:08 Dose: 30 mg Ondansetron HCl (Zofran Odt) 8 mg PO Q6 PRN PRN Reason: Nausea/Vomiting Last Admin: 09/13/17 04:01 Dose: 8 mg Pantoprazole Sodium (Protonix Ec Tab) 40 mg PO DAILY [facility] Last Admin: 09/15/17 09:08 Dose: 40 mg Sevelamer Carbonate (Renvela) 0.8 gm PO TIDCC [facility] Last Admin: 09/15/17 17:52 Dose: 0.8 gm Vitamin B Complex/Vit C/Folic Acid (Nephro-Vamshi) 1 tab PO 0800 [facility] Last Admin: 09/15/17 08:15 Dose: 1 tab - Labs Labs: 09/15/17 06:47 09/15/17 06:47 - Constitutional Appears: Non-toxic - Head Exam Head Exam: NORMAL INSPECTION - Eye Exam Eye Exam: Normal appearance - ENT Exam ENT Exam: Mucous Membranes Moist - Neck Exam Neck Exam: Normal Inspection - Respiratory Exam Respiratory Exam: NORMAL BREATHING PATTERN - Cardiovascular Exam Cardiovascular Exam: REGULAR RHYTHM - GI/Abdominal Exam GI & Abdominal Exam: Soft - Extremities Exam Extremities Exam: Normal Inspection - Neurological Exam Neurological Exam: Alert, Awake, Oriented x3 - Psychiatric Exam Psychiatric exam: Normal Affect, Normal Mood - Skin Skin Exam: Dry, Warm
[2017-09-15] MEDS: (Lantus) Insulin Glargine, Recombinant SC SCH (21:44)
[2017-09-16] MEDS: DiphenhydrAMINE 50 mg/ml Inj IVP SCH ×8 (00:59→22:41)
[2017-09-16] MEDS: Multivitamin Vitamin B Complex (Nephro-Vite) Tab PO SCH (08:20)
[2017-09-16] MEDS: Sevelamer Carb 0.8 gm/Packet PO SCH ×3 (08:20→17:00)
[2017-09-16] MEDS: (Novolin R) Insulin Human Regular 100 units/ml vial SC SCH ×4 (08:22→21:25)
[2017-09-16] MEDS: NIFEdipine 30 mg ER Tab PO SCH (09:58)
[2017-09-16] MEDS: Pantoprazole 40 mg EC Tab PO SCH (09:59)
--- NOTE | 2017-09-16 14:24 | CP.PCM.PN ---
Subjective - Date & Time of Evaluation Date of Evaluation: 09/16/17 Time of Evaluation: 14:24 Objective - Vital Signs/Intake and Output Vital Signs (last 24 hours): Temp Pulse Resp BP Pulse Ox 98.0 F 81 18 166/95 H 98 09/16/17 00:23 09/16/17 08:50 09/16/17 08:50 09/16/17 08:50 09/16/17 08:50 - Medications Medications: Current Medications Calcium Acetate (Phoslo) 667 mg PO TIDCC [facility] Last Admin: 09/16/17 12:57 Dose: 667 mg Clonidine HCl (Catapres) 0.3 mg PO BID [facility] Last Admin: 09/16/17 10:06 Dose: 0.3 mg Dextrose (Dextrose 50% Inj) 0 ml IV STAT PRN; Protocol PRN Reason: Hypoglycemia Protocol Last Admin: 09/14/17 16:20 Dose: 50 ml Dextrose (Glutose 15) 0 gm PO ONCE PRN; Protocol PRN Reason: Hypoglycemia Protocol Last Admin: 09/10/17 06:35 Dose: 15 gm Diphenhydramine HCl (Benadryl) 25 mg IVP Q3 [facility] Last Admin: 09/16/17 12:56 Dose: 25 mg Diphenhydramine HCl (Benadryl) 25 mg IVP ONCE PRN PRN Reason: body itchiness Last Admin: 09/14/17 17:17 Dose: 25 mg Docusate Sodium (Colace) 100 mg PO TID [facility] Last Admin: 09/16/17 13:00 Dose: 100 mg Epoetin James (Procrit) 10,000 unit IV MWF [facility] Last Admin: 09/14/17 16:42 Dose: 10,000 unit Ergocalciferol (Drisdol 50,000 Intl Units Cap) 1 cap PO QWK [facility] Last Admin: 09/11/17 10:02 Dose: 1 cap Gabapentin (Neurontin) 300 mg PO DAILY [facility] Last Admin: 09/16/17 09:59 Dose: 300 mg Glucagon (Glucagen Diagnostic Kit) 0 mg IM STAT PRN; Protocol PRN Reason: Hypoglycemia Protocol Hydralazine HCl (Apresoline) 25 mg PO QID [facility] Last Admin: 09/16/17 09:58 Dose: 25 mg Hydromorphone HCl (Dilaudid) 2 mg IVP Q3 [facility] Last Admin: 09/16/17 12:57 Dose: 2 mg Vancomycin/Sodium Chloride (Vancomycin 1 Gm/Ns 200 Ml) 1 gm in 200 mls @ 133 mls/hr IVPB MWF [facility] Stop: 09/22/17 09:01 Insulin Glargine (Lantus) 25 unit SC HS [facility] Last Admin: 09/15/17 21:44 Dose: 25 unit Insulin Human Regular (Novolin R) 0 unit SC ACHS [facility] PRN Reason: Protocol Last Admin: 09/16/17 12:55 Dose: 1 unit Metoclopramide HCl (Reglan) 10 mg PO DAILY [facility] Last Admin: 09/16/17 09:59 Dose: 10 mg Nifedipine (Procardia Xl) 30 mg PO DAILY [facility] Last Admin: 09/16/17 09:58 Dose: 30 mg Ondansetron HCl (Zofran Odt) 8 mg PO Q6 PRN PRN Reason: Nausea/Vomiting Last Admin: 09/13/17 04:01 Dose: 8 mg Pantoprazole Sodium (Protonix Ec Tab) 40 mg PO DAILY [facility] Last Admin: 09/16/17 09:59 Dose: 40 mg Sevelamer Carbonate (Renvela) 0.8 gm PO TIDCC [facility] Last Admin: 09/16/17 12:55 Dose: 0.8 gm Vitamin B Complex/Vit C/Folic Acid (Nephro-Vamshi) 1 tab PO 0800 [facility] Last Admin: 09/16/17 08:20 Dose: 1 tab - Labs Labs: 09/15/17 06:47 09/15/17 06:47
--- NOTE | 2017-09-16 16:34 | CP.PCM.PN ---
Subjective - Date & Time of Evaluation Date of Evaluation: 09/16/17 Time of Evaluation: 05:00 - Subjective Subjective: iv rx in progress Objective - Vital Signs/Intake and Output Vital Signs (last 24 hours): Temp Pulse Resp BP Pulse Ox 97.4 F L 80 20 138/91 H 100 09/16/17 16:10 09/16/17 16:10 09/16/17 16:10 09/16/17 16:10 09/16/17 16:10 - Medications Medications: Current Medications Calcium Acetate (Phoslo) 667 mg PO TIDCC [facility] Last Admin: 09/16/17 12:57 Dose: 667 mg Clonidine HCl (Catapres) 0.3 mg PO BID [facility] Last Admin: 09/16/17 10:06 Dose: 0.3 mg Dextrose (Dextrose 50% Inj) 0 ml IV STAT PRN; Protocol PRN Reason: Hypoglycemia Protocol Last Admin: 09/14/17 16:20 Dose: 50 ml Dextrose (Glutose 15) 0 gm PO ONCE PRN; Protocol PRN Reason: Hypoglycemia Protocol Last Admin: 09/10/17 06:35 Dose: 15 gm Diphenhydramine HCl (Benadryl) 25 mg IVP Q3 [facility] Last Admin: 09/16/17 12:56 Dose: 25 mg Diphenhydramine HCl (Benadryl) 25 mg IVP ONCE PRN PRN Reason: body itchiness Last Admin: 09/14/17 17:17 Dose: 25 mg Docusate Sodium (Colace) 100 mg PO TID [facility] Last Admin: 09/16/17 13:00 Dose: 100 mg Epoetin James (Procrit) 10,000 unit IV MWF [facility] Last Admin: 09/14/17 16:42 Dose: 10,000 unit Ergocalciferol (Drisdol 50,000 Intl Units Cap) 1 cap PO QWK [facility] Last Admin: 09/11/17 10:02 Dose: 1 cap Gabapentin (Neurontin) 300 mg PO DAILY [facility] Last Admin: 09/16/17 09:59 Dose: 300 mg Glucagon (Glucagen Diagnostic Kit) 0 mg IM STAT PRN; Protocol PRN Reason: Hypoglycemia Protocol Hydralazine HCl (Apresoline) 25 mg PO QID [facility] Last Admin: 09/16/17 14:00 Dose: Not Given Hydromorphone HCl (Dilaudid) 2 mg IVP Q3 [facility] Last Admin: 09/16/17 12:57 Dose: 2 mg Vancomycin/Sodium Chloride (Vancomycin 1 Gm/Ns 200 Ml) 1 gm in 200 mls @ 133 mls/hr IVPB MWF [facility] Stop: 09/22/17 09:01 Insulin Glargine (Lantus) 25 unit SC HS [facility] Last Admin: 09/15/17 21:44 Dose: 25 unit Insulin Human Regular (Novolin R) 0 unit SC ACHS [facility] PRN Reason: Protocol Last Admin: 09/16/17 12:55 Dose: 1 unit Metoclopramide HCl (Reglan) 10 mg PO DAILY [facility] Last Admin: 09/16/17 09:59 Dose: 10 mg Nifedipine (Procardia Xl) 30 mg PO DAILY [facility] Last Admin: 09/16/17 09:58 Dose: 30 mg Ondansetron HCl (Zofran Odt) 8 mg PO Q6 PRN PRN Reason: Nausea/Vomiting Last Admin: 09/13/17 04:01 Dose: 8 mg Pantoprazole Sodium (Protonix Ec Tab) 40 mg PO DAILY [facility] Last Admin: 09/16/17 09:59 Dose: 40 mg Sevelamer Carbonate (Renvela) 0.8 gm PO TIDCC [facility] Last Admin: 09/16/17 12:55 Dose: 0.8 gm Vitamin B Complex/Vit C/Folic Acid (Nephro-Vamshi) 1 tab PO 0800 [facility] Last Admin: 09/16/17 08:20 Dose: 1 tab - Labs Labs: 09/15/17 06:47 09/15/17 06:47 - Constitutional Appears: Non-toxic, Chronically Ill - Head Exam Head Exam: NORMOCEPHALIC - Eye Exam Eye Exam: PERRL - ENT Exam ENT Exam: Mucous Membranes Dry - Neck Exam Neck Exam: absent: Lymphadenopathy - Respiratory Exam Respiratory Exam: Decreased Breath Sounds - Cardiovascular Exam Cardiovascular Exam: REGULAR RHYTHM - GI/Abdominal Exam GI & Abdominal Exam: Distended, Soft Assessment and Plan (1) Cellulitis and abscess of foot Status: Acute (2) ESRD (end stage renal disease) on dialysis Status: Acute (3) History of diabetic gastroparesis Status: Acute (4) Accelerated essential hypertension Status: Acute
[2017-09-16] MEDS: (Lantus) Insulin Glargine, Recombinant SC SCH (22:41)
[2017-09-17] MEDS: DiphenhydrAMINE 50 mg/ml Inj IVP SCH ×8 (01:40→21:11)
[2017-09-17] MEDS: Epoetin Alfa 10,000 unit/ml Dialysis IV SCH ×2 (08:30→15:23)
[2017-09-17] MEDS: Sevelamer Carb 0.8 gm/Packet PO SCH ×3 (08:30→17:33)
[2017-09-17] MEDS: Multivitamin Vitamin B Complex (Nephro-Vite) Tab PO SCH (08:33)
[2017-09-17] MEDS: (Novolin R) Insulin Human Regular 100 units/ml vial SC SCH ×4 (08:47→22:33)
[2017-09-17] MEDS ORDERED: Vancomycin 1 gm/NS 200 ml 1 GM/200 ML BAG IVPB SCH (09:00)
[2017-09-17] MEDS: NIFEdipine 30 mg ER Tab PO SCH (10:46)
[2017-09-17] MEDS: Pantoprazole 40 mg EC Tab PO SCH (10:46)
[2017-09-17 14:32] LABS: BASO # 0.1 K/uL (0.0-0.2); BASO % 1.8 % (0.0-2.0); EOS # 0.8 K/uL (0.0-0.7); EOS % 14.2 % (0.0-4.0); HEMOGLOBIN 9.5 g/dL (11.0-16.0); LYMPH # 1.5 K/uL (1.0-4.3); LYMPH % 26.1 % (20.0-40.0); MEAN CELL VOLUME 95.9 fL (81.0-99.0); MEAN CORPUSCULAR HEMOGLOBIN 32.1 pg (27.0-31.0); MEAN CORPUSCULAR HGB CONC 33.5 g/dL (33.0-37.0); MEAN PLATELET VOLUME 7.5 fL (7.2-11.7); MONO # 0.7 K/uL (0.0-0.8); MONO % 12.7 % (0.0-10.0); NEUT # 2.6 K/uL (1.8-7.0); NEUT % 45.2 % (50.0-75.0); RBC 2.94 Mil/uL (3.80-5.20); RED CELL DISTRIBUTION WIDTH 17.3 % (11.5-14.5); WHITE BLOOD COUNT 5.8 K/uL (4.8-10.8)
[2017-09-17 14:56] LABS: ALB/GLOB RATIO 1.1 (1.0-2.1); CALCIUM 7.6 mg/dl (8.6-10.4)
[2017-09-17] MEDS: DiphenhydrAMINE 50 mg/ml Inj IVP PRN (15:25)
--- NOTE | 2017-09-17 19:02 | CP.PCM.PN ---
Subjective - Date & Time of Evaluation Date of Evaluation: 09/17/17 Time of Evaluation: 15:00 - Subjective Subjective: SEEN ON RENAL F/U SEEN ON HD FEELS IMPROVED ALL PREVIOUS EMR REVIEWED Objective - Vital Signs/Intake and Output Vital Signs (last 24 hours): Temp Pulse Resp BP Pulse Ox 97.5 F L 103 H 16 128/82 102 H 09/17/17 14:20 09/17/17 18:42 09/17/17 17:20 09/17/17 18:42 09/17/17 17:20 - Medications Medications: Current Medications Calcium Acetate (Phoslo) 667 mg PO TIDCC [facility] Last Admin: 09/17/17 17:33 Dose: Not Given Clonidine HCl (Catapres) 0.3 mg PO BID [facility] Last Admin: 09/17/17 18:42 Dose: 0.3 mg Dextrose (Dextrose 50% Inj) 0 ml IV STAT PRN; Protocol PRN Reason: Hypoglycemia Protocol Last Admin: 09/14/17 16:20 Dose: 50 ml Dextrose (Glutose 15) 0 gm PO ONCE PRN; Protocol PRN Reason: Hypoglycemia Protocol Last Admin: 09/10/17 06:35 Dose: 15 gm Diphenhydramine HCl (Benadryl) 25 mg IVP Q3 [facility] Last Admin: 09/17/17 17:02 Dose: 25 mg Diphenhydramine HCl (Benadryl) 25 mg IVP ONCE PRN PRN Reason: body itchiness Last Admin: 09/17/17 15:25 Dose: 25 mg Docusate Sodium (Colace) 100 mg PO TID [facility] Last Admin: 09/17/17 18:42 Dose: 100 mg Epoetin James (Procrit) 10,000 unit IV MWF [facility] Last Admin: 09/17/17 15:23 Dose: 10,000 unit Ergocalciferol (Drisdol 50,000 Intl Units Cap) 1 cap PO QWK [facility] Last Admin: 09/11/17 10:02 Dose: 1 cap Gabapentin (Neurontin) 300 mg PO DAILY [facility] Last Admin: 09/17/17 10:46 Dose: 300 mg Glucagon (Glucagen Diagnostic Kit) 0 mg IM STAT PRN; Protocol PRN Reason: Hypoglycemia Protocol Hydralazine HCl (Apresoline) 25 mg PO QID [facility] Last Admin: 09/17/17 18:42 Dose: 25 mg Hydromorphone HCl (Dilaudid) 2 mg IVP Q3 [facility] Last Admin: 09/17/17 17:02 Dose: 2 mg Vancomycin/Sodium Chloride (Vancomycin 1 Gm/Ns 200 Ml) 1 gm in 200 mls @ 133 mls/hr IVPB MWF [facility] Stop: 09/22/17 09:01 Last Admin: 09/17/17 09:00 Dose: Not Given Insulin Glargine (Lantus) 25 unit SC HS [facility] Last Admin: 09/16/17 22:41 Dose: 25 unit Insulin Human Regular (Novolin R) 0 unit SC ACHS [facility] PRN Reason: Protocol Last Admin: 09/17/17 17:32 Dose: Not Given Metoclopramide HCl (Reglan) 10 mg PO DAILY [facility] Last Admin: 09/17/17 10:46 Dose: 10 mg Nifedipine (Procardia Xl) 30 mg PO DAILY [facility] Last Admin: 09/17/17 10:46 Dose: 30 mg Ondansetron HCl (Zofran Odt) 8 mg PO Q6 PRN PRN Reason: Nausea/Vomiting Last Admin: 09/13/17 04:01 Dose: 8 mg Pantoprazole Sodium (Protonix Ec Tab) 40 mg PO DAILY [facility] Last Admin: 09/17/17 10:46 Dose: 40 mg Sevelamer Carbonate (Renvela) 0.8 gm PO TIDCC [facility] Last Admin: 09/17/17 17:33 Dose: Not Given Vitamin B Complex/Vit C/Folic Acid (Nephro-Vamshi) 1 tab PO 0800 [facility] Last Admin: 09/17/17 08:33 Dose: Not Given - Labs Labs: 09/17/17 14:28 09/17/17 14:28 Assessment and Plan - Assessment and Plan (Free Text) Assessment: ESRD ON HD M W F AND SAT .. TO BE C/O ANEMIA OF CKD .. ON EPO MMP P : C/O HD M W F AND SAT C/O CURRENT MEDS C/O CURRENT MANAGEMENT
--- NOTE | 2017-09-17 19:26 | CP.PCM.PN ---
Subjective - Date & Time of Evaluation Date of Evaluation: 09/17/17 Time of Evaluation: 08:40 - Subjective Subjective: clinically same Objective - Vital Signs/Intake and Output Vital Signs (last 24 hours): Temp Pulse Resp BP Pulse Ox 97.5 F L 103 H 16 128/82 102 H 09/17/17 14:20 09/17/17 18:42 09/17/17 17:20 09/17/17 18:42 09/17/17 17:20 - Medications Medications: Current Medications Calcium Acetate (Phoslo) 667 mg PO TIDCC [facility] Last Admin: 09/17/17 17:33 Dose: Not Given Clonidine HCl (Catapres) 0.3 mg PO BID [facility] Last Admin: 09/17/17 18:42 Dose: 0.3 mg Dextrose (Dextrose 50% Inj) 0 ml IV STAT PRN; Protocol PRN Reason: Hypoglycemia Protocol Last Admin: 09/14/17 16:20 Dose: 50 ml Dextrose (Glutose 15) 0 gm PO ONCE PRN; Protocol PRN Reason: Hypoglycemia Protocol Last Admin: 09/10/17 06:35 Dose: 15 gm Diphenhydramine HCl (Benadryl) 25 mg IVP Q3 [facility] Last Admin: 09/17/17 17:02 Dose: 25 mg Diphenhydramine HCl (Benadryl) 25 mg IVP ONCE PRN PRN Reason: body itchiness Last Admin: 09/17/17 15:25 Dose: 25 mg Docusate Sodium (Colace) 100 mg PO TID [facility] Last Admin: 09/17/17 18:42 Dose: 100 mg Epoetin James (Procrit) 10,000 unit IV MWF [facility] Last Admin: 09/17/17 15:23 Dose: 10,000 unit Ergocalciferol (Drisdol 50,000 Intl Units Cap) 1 cap PO QWK [facility] Last Admin: 09/11/17 10:02 Dose: 1 cap Gabapentin (Neurontin) 300 mg PO DAILY [facility] Last Admin: 09/17/17 10:46 Dose: 300 mg Glucagon (Glucagen Diagnostic Kit) 0 mg IM STAT PRN; Protocol PRN Reason: Hypoglycemia Protocol Hydralazine HCl (Apresoline) 25 mg PO QID [facility] Last Admin: 09/17/17 18:42 Dose: 25 mg Hydromorphone HCl (Dilaudid) 2 mg IVP Q3 [facility] Last Admin: 09/17/17 17:02 Dose: 2 mg Vancomycin/Sodium Chloride (Vancomycin 1 Gm/Ns 200 Ml) 1 gm in 200 mls @ 133 mls/hr IVPB MWF [facility] Stop: 09/22/17 09:01 Last Admin: 09/17/17 09:00 Dose: Not Given Insulin Glargine (Lantus) 25 unit SC HS [facility] Last Admin: 09/16/17 22:41 Dose: 25 unit Insulin Human Regular (Novolin R) 0 unit SC ACHS [facility] PRN Reason: Protocol Last Admin: 09/17/17 17:32 Dose: Not Given Metoclopramide HCl (Reglan) 10 mg PO DAILY [facility] Last Admin: 09/17/17 10:46 Dose: 10 mg Nifedipine (Procardia Xl) 30 mg PO DAILY [facility] Last Admin: 09/17/17 10:46 Dose: 30 mg Ondansetron HCl (Zofran Odt) 8 mg PO Q6 PRN PRN Reason: Nausea/Vomiting Last Admin: 09/13/17 04:01 Dose: 8 mg Pantoprazole Sodium (Protonix Ec Tab) 40 mg PO DAILY [facility] Last Admin: 09/17/17 10:46 Dose: 40 mg Sevelamer Carbonate (Renvela) 0.8 gm PO TIDCC [facility] Last Admin: 09/17/17 17:33 Dose: Not Given Vitamin B Complex/Vit C/Folic Acid (Nephro-Vamshi) 1 tab PO 0800 [facility] Last Admin: 09/17/17 08:33 Dose: Not Given - Labs Labs: 09/17/17 14:28 09/17/17 14:28 - Constitutional Appears: Well - Head Exam Head Exam: ATRAUMATIC, NORMAL INSPECTION, NORMOCEPHALIC - Eye Exam Eye Exam: EOMI, Normal appearance, PERRL Pupil Exam: NORMAL ACCOMODATION, PERRL - ENT Exam ENT Exam: Mucous Membranes Moist, Normal Exam - Neck Exam Neck Exam: Full ROM, Normal Inspection. absent: Lymphadenopathy - Respiratory Exam Respiratory Exam: Decreased Breath Sounds - Cardiovascular Exam Cardiovascular Exam: REGULAR RHYTHM, +S1, +S2 - GI/Abdominal Exam GI & Abdominal Exam: Soft, Diminished Bowel Sounds - Rectal Exam Rectal Exam: Deferred
[2017-09-17] MEDS: (Lantus) Insulin Glargine, Recombinant SC SCH (21:11)
[2017-09-18] MEDS: DiphenhydrAMINE 50 mg/ml Inj IVP SCH ×9 (00:22→21:52)
[2017-09-18] MEDS: (Novolin R) Insulin Human Regular 100 units/ml vial SC SCH ×4 (07:28→22:08)
[2017-09-18] MEDS: Ergocalciferol 50,000 Intl Units Cap PO SCH (09:55)
[2017-09-18] MEDS: Pantoprazole 40 mg EC Tab PO SCH (09:55)
[2017-09-18] MEDS: NIFEdipine 30 mg ER Tab PO SCH (09:55)
[2017-09-18] MEDS: Sevelamer Carb 0.8 gm/Packet PO SCH ×3 (09:55→17:13)
[2017-09-18] MEDS: Multivitamin Vitamin B Complex (Nephro-Vite) Tab PO SCH (09:55)
[2017-09-18] MEDS ORDERED: DiphenhydrAMINE 50 mg/ml Inj IVP ONE (14:26)
--- NOTE | 2017-09-18 16:30 | CP.PCM.PN ---
Subjective - Date & Time of Evaluation Date of Evaluation: 09/18/17 Time of Evaluation: 10:40 - Subjective Subjective: clinically same Objective - Vital Signs/Intake and Output Vital Signs (last 24 hours): Temp Pulse Resp BP Pulse Ox 98 F 86 16 154/94 H 100 09/18/17 14:15 09/18/17 14:15 09/18/17 14:15 09/18/17 14:45 09/18/17 14:15 Intake and Output: 09/18/17 09/18/17 06:59 18:59 Intake Total 400 460 Balance 400 460 - Medications Medications: Current Medications Calcium Acetate (Phoslo) 667 mg PO TIDCC [facility] Last Admin: 09/18/17 13:01 Dose: 667 mg Clonidine HCl (Catapres) 0.3 mg PO BID [facility] Last Admin: 09/18/17 09:55 Dose: 0.3 mg Dextrose (Dextrose 50% Inj) 0 ml IV STAT PRN; Protocol PRN Reason: Hypoglycemia Protocol Last Admin: 09/14/17 16:20 Dose: 50 ml Dextrose (Glutose 15) 0 gm PO ONCE PRN; Protocol PRN Reason: Hypoglycemia Protocol Last Admin: 09/10/17 06:35 Dose: 15 gm Diphenhydramine HCl (Benadryl) 25 mg IVP Q3 [facility] Last Admin: 09/18/17 13:11 Dose: 25 mg Diphenhydramine HCl (Benadryl) 25 mg IVP ONCE PRN PRN Reason: body itchiness Last Admin: 09/17/17 15:25 Dose: 25 mg Docusate Sodium (Colace) 100 mg PO TID [facility] Last Admin: 09/18/17 13:12 Dose: Not Given Epoetin James (Procrit) 10,000 unit IV MWF [facility] Last Admin: 09/17/17 15:23 Dose: 10,000 unit Ergocalciferol (Drisdol 50,000 Intl Units Cap) 1 cap PO QWK [facility] Last Admin: 09/18/17 09:55 Dose: 1 cap Gabapentin (Neurontin) 300 mg PO DAILY [facility] Last Admin: 09/18/17 09:55 Dose: 300 mg Glucagon (Glucagen Diagnostic Kit) 0 mg IM STAT PRN; Protocol PRN Reason: Hypoglycemia Protocol Hydralazine HCl (Apresoline) 25 mg PO QID [facility] Last Admin: 09/18/17 13:11 Dose: Not Given Hydromorphone HCl (Dilaudid) 1 mg IVP Q4H PRN PRN Reason: Pain, moderate (4-7) Vancomycin HCl 1 gm/ Sodium (Chloride) 250 mls @ 166.667 mls/hr IVPB MWF [facility] Stop: 09/22/17 09:01 Insulin Glargine (Lantus) 25 unit SC HS [facility] Last Admin: 09/17/17 21:11 Dose: 25 unit Insulin Human Regular (Novolin R) 0 unit SC ACHS [facility] PRN Reason: Protocol Last Admin: 09/18/17 13:12 Dose: 4 unit Metoclopramide HCl (Reglan) 10 mg PO DAILY [facility] Last Admin: 09/18/17 09:55 Dose: 10 mg Nifedipine (Procardia Xl) 30 mg PO DAILY [facility] Last Admin: 09/18/17 09:55 Dose: 30 mg Ondansetron HCl (Zofran Odt) 8 mg PO Q6 PRN PRN Reason: Nausea/Vomiting Last Admin: 09/13/17 04:01 Dose: 8 mg Pantoprazole Sodium (Protonix Ec Tab) 40 mg PO DAILY [facility] Last Admin: 09/18/17 09:55 Dose: 40 mg Sevelamer Carbonate (Renvela) 0.8 gm PO TIDCC [facility] Last Admin: 09/18/17 13:13 Dose: Not Given Vitamin B Complex/Vit C/Folic Acid (Nephro-Vamshi) 1 tab PO 0800 [facility] Last Admin: 09/18/17 09:55 Dose: 1 tab - Labs Labs: 09/17/17 14:28 09/17/17 14:28 - Constitutional Appears: Well - Head Exam Head Exam: ATRAUMATIC, NORMAL INSPECTION, NORMOCEPHALIC - Eye Exam Eye Exam: EOMI, Normal appearance, PERRL Pupil Exam: NORMAL ACCOMODATION, PERRL - ENT Exam ENT Exam: Mucous Membranes Moist, Normal Exam - Neck Exam Neck Exam: Full ROM, Normal Inspection. absent: Lymphadenopathy - Respiratory Exam Respiratory Exam: Decreased Breath Sounds - Cardiovascular Exam Cardiovascular Exam: REGULAR RHYTHM, +S1, +S2 - GI/Abdominal Exam GI & Abdominal Exam: Soft, Diminished Bowel Sounds - Rectal Exam Rectal Exam: Deferred
--- NOTE | 2017-09-18 17:58 | CP.PCM.PN ---
Subjective - Date & Time of Evaluation Date of Evaluation: 09/18/17 Time of Evaluation: 13:05 - Subjective Subjective: Podiatry Progress Note- Dr. Tilley: 31 yo diabetic female seen and evaluated at bedside for b/l 3rd toe pain/ swelling. Patient is seen sitting at bedside and in NAD. Patient denies f/n/v/c/ sob/cp/weakness or calf pain at this time. Patient denies acute overnight events. Dressing is c/d/i. Patient was sleepy during visitation, falling asleep during interview. Patient has no other pedal complaints at this time. Objective - Vital Signs/Intake and Output Vital Signs (last 24 hours): Temp Pulse Resp BP Pulse Ox 98 F 86 16 154/94 H 100 09/18/17 14:15 09/18/17 14:15 09/18/17 14:15 09/18/17 14:45 09/18/17 14:15 Intake and Output: 09/18/17 09/18/17 06:59 18:59 Intake Total 400 460 Balance 400 460 - Medications Medications: Current Medications Calcium Acetate (Phoslo) 667 mg PO TIDCC [facility] Last Admin: 09/18/17 17:12 Dose: Not Given Clonidine HCl (Catapres) 0.3 mg PO BID [facility] Last Admin: 09/18/17 09:55 Dose: 0.3 mg Dextrose (Dextrose 50% Inj) 0 ml IV STAT PRN; Protocol PRN Reason: Hypoglycemia Protocol Last Admin: 09/14/17 16:20 Dose: 50 ml Dextrose (Glutose 15) 0 gm PO ONCE PRN; Protocol PRN Reason: Hypoglycemia Protocol Last Admin: 09/10/17 06:35 Dose: 15 gm Diphenhydramine HCl (Benadryl) 25 mg IVP Q3 [facility] Last Admin: 09/18/17 16:45 Dose: 25 mg Diphenhydramine HCl (Benadryl) 25 mg IVP ONCE PRN PRN Reason: body itchiness Last Admin: 09/17/17 15:25 Dose: 25 mg Docusate Sodium (Colace) 100 mg PO TID [facility] Last Admin: 09/18/17 13:12 Dose: Not Given Epoetin James (Procrit) 10,000 unit IV MWF [facility] Last Admin: 09/17/17 15:23 Dose: 10,000 unit Ergocalciferol (Drisdol 50,000 Intl Units Cap) 1 cap PO QWK [facility] Last Admin: 09/18/17 09:55 Dose: 1 cap Gabapentin (Neurontin) 300 mg PO DAILY [facility] Last Admin: 09/18/17 09:55 Dose: 300 mg Glucagon (Glucagen Diagnostic Kit) 0 mg IM STAT PRN; Protocol PRN Reason: Hypoglycemia Protocol Hydralazine HCl (Apresoline) 25 mg PO QID [facility] Last Admin: 09/18/17 13:11 Dose: Not Given Hydromorphone HCl (Dilaudid) 2 mg IVP Q4H PRN PRN Reason: Pain, moderate (4-7) Vancomycin HCl 1 gm/ Sodium (Chloride) 250 mls @ 166.667 mls/hr IVPB MWF [facility] Stop: 09/22/17 09:01 Insulin Glargine (Lantus) 25 unit SC HS [facility] Last Admin: 09/17/17 21:11 Dose: 25 unit Insulin Human Regular (Novolin R) 0 unit SC ACHS [facility] PRN Reason: Protocol Last Admin: 09/18/17 17:13 Dose: Not Given Metoclopramide HCl (Reglan) 10 mg PO DAILY [facility] Last Admin: 09/18/17 09:55 Dose: 10 mg Nifedipine (Procardia Xl) 30 mg PO DAILY [facility] Last Admin: 09/18/17 09:55 Dose: 30 mg Ondansetron HCl (Zofran Odt) 8 mg PO Q6 PRN PRN Reason: Nausea/Vomiting Last Admin: 09/13/17 04:01 Dose: 8 mg Pantoprazole Sodium (Protonix Ec Tab) 40 mg PO DAILY [facility] Last Admin: 09/18/17 09:55 Dose: 40 mg Sevelamer Carbonate (Renvela) 0.8 gm PO TIDCC [facility] Last Admin: 09/18/17 17:13 Dose: Not Given Vitamin B Complex/Vit C/Folic Acid (Nephro-Vamshi) 1 tab PO 0800 [facility] Last Admin: 09/18/17 09:55 Dose: 1 tab - Labs Labs: 09/17/17 14:28 09/17/17 14:28 - Constitutional Appears: Well, Non-toxic, No Acute Distress - Extremities Exam Additional comments: B/L LE exam: VASC- pedal pulses fully palpable b/l (grade 2/4), cap refill < 3 sec to all digits x10, cap refill is brisk to all toes, 3rd digit b/l appears grossly edematous circumferentially NEURO- gross and protective pedal sensation is intact BL DERM- toenails 1-2 on b/l are thickened and discolored, hypergranulation tissue is noted to nail bed of 3rd digiti b/l with no evidence of drainage, neg malodor , neg erythema (distal aspect of both toes appear to have darkened skin changes) , well healed cicatrix is noted to 4th interspace of right foot (previous ulceration) ORTHO -tenderness to palp of b/l 3rd toe and also to palp of lateral nail border left hallux - Neurological Exam Neurological Exam: Alert, Awake, Oriented x3 - Psychiatric Exam Psychiatric exam: Normal Affect, Normal Mood Assessment and Plan - Assessment and Plan (Free Text) Assessment: 31 yo diabetic female pt w/ painful/edematous 3rd digit b/l feet possibly secondary to osteomyelitis. Plan: Patient seen and evaluated at bedside Discussed plan in detail with attending Dr. Tilley Chart and labs reviewed: afebrile, no leukocytosis X- ray IMPRESSION: "Findings compatible with bilateral ir toe cellulitis with bilateral osteomyelitis. Subacute to chronic left 4th proximal metatarsal fracture with cystic changes - incomplete healing inferred" 3rd toes b/l scrubbed with peroxide/saline mix pt advised to keep feet clean and dry and to wear hospital socks. Continue IV abx per ID. Discussed with pt potential indicated treatment option of digital amputations including risks, benefits, complications and potential alternatives. Pt amenable to potential amputations. Per Dr. Tilley no need for MRI at this time, Will follow patient while in house.
[2017-09-18] MEDS: (Lantus) Insulin Glargine, Recombinant SC SCH (21:53)
--- NOTE | 2017-09-18 22:34 | CP.PCM.PN ---
Subjective - Date & Time of Evaluation Date of Evaluation: 09/18/17 Time of Evaluation: 13:00 - Subjective Subjective: SEEN ON RENAL F/U ASKING FOR EXTRA HD TODAY FOR SOB WILL GIVE HD TODAY AND THEN SUNNY AND SAT NEXT WEEK WILL CHANGE HD PER HER SCHEDULE Objective - Vital Signs/Intake and Output Vital Signs (last 24 hours): Temp Pulse Resp BP Pulse Ox 98 F 103 H 16 145/87 100 09/18/17 14:15 09/18/17 18:28 09/18/17 14:15 09/18/17 18:28 09/18/17 14:15 Intake and Output: 09/18/17 09/19/17 18:59 06:59 Intake Total 460 Balance 460 - Medications Medications: Current Medications Calcium Acetate (Phoslo) 667 mg PO TIDCC [facility] Last Admin: 09/18/17 17:12 Dose: Not Given Clonidine HCl (Catapres) 0.3 mg PO BID [facility] Last Admin: 09/18/17 18:29 Dose: 0.3 mg Dextrose (Dextrose 50% Inj) 0 ml IV STAT PRN; Protocol PRN Reason: Hypoglycemia Protocol Last Admin: 09/14/17 16:20 Dose: 50 ml Dextrose (Glutose 15) 0 gm PO ONCE PRN; Protocol PRN Reason: Hypoglycemia Protocol Last Admin: 09/10/17 06:35 Dose: 15 gm Diphenhydramine HCl (Benadryl) 25 mg IVP Q3 [facility] Last Admin: 09/18/17 21:52 Dose: Not Given Diphenhydramine HCl (Benadryl) 25 mg IVP ONCE PRN PRN Reason: body itchiness Last Admin: 09/17/17 15:25 Dose: 25 mg Docusate Sodium (Colace) 100 mg PO TID [facility] Last Admin: 09/18/17 18:28 Dose: 100 mg Epoetin James (Procrit) 10,000 unit IV MWF [facility] Last Admin: 09/17/17 15:23 Dose: 10,000 unit Ergocalciferol (Drisdol 50,000 Intl Units Cap) 1 cap PO QWK [facility] Last Admin: 09/18/17 09:55 Dose: 1 cap Gabapentin (Neurontin) 300 mg PO DAILY [facility] Last Admin: 09/18/17 09:55 Dose: 300 mg Glucagon (Glucagen Diagnostic Kit) 0 mg IM STAT PRN; Protocol PRN Reason: Hypoglycemia Protocol Hydralazine HCl (Apresoline) 25 mg PO QID [facility] Last Admin: 09/18/17 21:52 Dose: 25 mg Hydromorphone HCl (Dilaudid) 2 mg IVP Q4H PRN PRN Reason: Pain, moderate (4-7) Last Admin: 09/18/17 20:06 Dose: 2 mg Vancomycin HCl 1 gm/ Sodium (Chloride) 250 mls @ 166.667 mls/hr IVPB MWF [facility] Stop: 09/22/17 09:01 Insulin Glargine (Lantus) 25 unit SC HS [facility] Last Admin: 09/18/17 21:53 Dose: 25 unit Insulin Human Regular (Novolin R) 0 unit SC ACHS [facility] PRN Reason: Protocol Last Admin: 09/18/17 22:08 Dose: Not Given Metoclopramide HCl (Reglan) 10 mg PO DAILY [facility] Last Admin: 09/18/17 09:55 Dose: 10 mg Nifedipine (Procardia Xl) 30 mg PO DAILY [facility] Last Admin: 09/18/17 09:55 Dose: 30 mg Ondansetron HCl (Zofran Odt) 8 mg PO Q6 PRN PRN Reason: Nausea/Vomiting Last Admin: 09/13/17 04:01 Dose: 8 mg Pantoprazole Sodium (Protonix Ec Tab) 40 mg PO DAILY [facility] Last Admin: 09/18/17 09:55 Dose: 40 mg Sevelamer Carbonate (Renvela) 0.8 gm PO TIDCC [facility] Last Admin: 09/18/17 17:13 Dose: Not Given Vitamin B Complex/Vit C/Folic Acid (Nephro-Vamshi) 1 tab PO 0800 [facility] Last Admin: 09/18/17 09:55 Dose: 1 tab - Labs Labs: 09/17/17 14:28 09/17/17 14:28 Assessment and Plan - Assessment and Plan (Free Text) Assessment: ESRD ON HD QID .. WANTED HD TODAY ANEMIA OF CKD .. ON EPO C/O [facility] HD TODAY THEN SUNNY AND SAT OF THIS WEEK
[2017-09-19] MEDS: DiphenhydrAMINE 50 mg/ml Inj IVP PRN (00:24)
[2017-09-19] MEDS: DiphenhydrAMINE 50 mg/ml Inj IVP SCH ×9 (03:09→22:23)
[2017-09-19] MEDS: Sevelamer Carb 0.8 gm/Packet PO SCH ×3 (08:00→18:09)
[2017-09-19] MEDS: Multivitamin Vitamin B Complex (Nephro-Vite) Tab PO SCH (08:29)
[2017-09-19] MEDS: (Novolin R) Insulin Human Regular 100 units/ml vial SC SCH ×4 (08:29→22:24)
[2017-09-19] MEDS: NIFEdipine 30 mg ER Tab PO SCH (11:11)
[2017-09-19] MEDS: Pantoprazole 40 mg EC Tab PO SCH (11:12)
--- NOTE | 2017-09-19 12:53 | CP.PCM.PN ---
Subjective - Date & Time of Evaluation Date of Evaluation: 09/19/17 Time of Evaluation: 10:00 - Subjective Subjective: clinically same Objective - Vital Signs/Intake and Output Vital Signs (last 24 hours): Temp Pulse Resp BP Pulse Ox 97.9 F 88 20 174/107 H 100 09/19/17 00:00 09/19/17 00:00 09/19/17 00:00 09/19/17 00:00 09/19/17 00:00 Intake and Output: 09/19/17 09/19/17 06:59 18:59 Intake Total 300 Balance 300 - Medications Medications: Current Medications Calcium Acetate (Phoslo) 667 mg PO TIDCC [facility] Last Admin: 09/19/17 08:29 Dose: 667 mg Clonidine HCl (Catapres) 0.3 mg PO BID [facility] Last Admin: 09/19/17 11:11 Dose: Not Given Dextrose (Dextrose 50% Inj) 0 ml IV STAT PRN; Protocol PRN Reason: Hypoglycemia Protocol Last Admin: 09/14/17 16:20 Dose: 50 ml Dextrose (Glutose 15) 0 gm PO ONCE PRN; Protocol PRN Reason: Hypoglycemia Protocol Last Admin: 09/10/17 06:35 Dose: 15 gm Diphenhydramine HCl (Benadryl) 25 mg IVP Q3 [facility] Last Admin: 09/19/17 12:45 Dose: 25 mg Diphenhydramine HCl (Benadryl) 25 mg IVP ONCE PRN PRN Reason: body itchiness Last Admin: 09/19/17 00:24 Dose: 25 mg Docusate Sodium (Colace) 100 mg PO TID [facility] Last Admin: 09/19/17 11:11 Dose: Not Given Epoetin James (Procrit) 10,000 unit IV MWF [facility] Last Admin: 09/17/17 15:23 Dose: 10,000 unit Ergocalciferol (Drisdol 50,000 Intl Units Cap) 1 cap PO QWK [facility] Last Admin: 09/18/17 09:55 Dose: 1 cap Gabapentin (Neurontin) 300 mg PO DAILY [facility] Last Admin: 09/19/17 11:11 Dose: Not Given Glucagon (Glucagen Diagnostic Kit) 0 mg IM STAT PRN; Protocol PRN Reason: Hypoglycemia Protocol Hydralazine HCl (Apresoline) 25 mg PO QID [facility] Last Admin: 09/19/17 11:11 Dose: Not Given Hydromorphone HCl (Dilaudid) 2 mg IVP Q4H PRN PRN Reason: Pain, moderate (4-7) Last Admin: 09/19/17 12:44 Dose: 2 mg Vancomycin HCl 1 gm/ Sodium (Chloride) 250 mls @ 166.667 mls/hr IVPB MWF [facility] Stop: 09/22/17 09:01 Last Admin: 09/19/17 11:35 Dose: Not Given Insulin Glargine (Lantus) 25 unit SC HS [facility] Last Admin: 09/18/17 21:53 Dose: 25 unit Insulin Human Regular (Novolin R) 0 unit SC ACHS [facility] PRN Reason: Protocol Last Admin: 09/19/17 08:29 Dose: 3 unit Metoclopramide HCl (Reglan) 10 mg PO DAILY [facility] Last Admin: 09/19/17 11:12 Dose: Not Given Nifedipine (Procardia Xl) 30 mg PO DAILY [facility] Last Admin: 09/19/17 11:11 Dose: Not Given Ondansetron HCl (Zofran Odt) 8 mg PO Q6 PRN PRN Reason: Nausea/Vomiting Last Admin: 09/13/17 04:01 Dose: 8 mg Pantoprazole Sodium (Protonix Ec Tab) 40 mg PO DAILY [facility] Last Admin: 09/19/17 11:12 Dose: Not Given Sevelamer Carbonate (Renvela) 0.8 gm PO TIDCC [facility] Last Admin: 09/19/17 08:00 Dose: Not Given Vitamin B Complex/Vit C/Folic Acid (Nephro-Vamshi) 1 tab PO 0800 [facility] Last Admin: 09/19/17 08:29 Dose: 1 tab - Labs Labs: 09/17/17 14:28 09/17/17 14:28 - Constitutional Appears: Well - Head Exam Head Exam: ATRAUMATIC, NORMAL INSPECTION, NORMOCEPHALIC - Eye Exam Eye Exam: EOMI, Normal appearance, PERRL Pupil Exam: NORMAL ACCOMODATION, PERRL - ENT Exam ENT Exam: Mucous Membranes Moist, Normal Exam - Neck Exam Neck Exam: Full ROM, Normal Inspection. absent: Lymphadenopathy - Respiratory Exam Respiratory Exam: Decreased Breath Sounds - Cardiovascular Exam Cardiovascular Exam: REGULAR RHYTHM, +S1, +S2 - GI/Abdominal Exam GI & Abdominal Exam: Soft, Diminished Bowel Sounds - Rectal Exam Rectal Exam: Deferred
[2017-09-19] MEDS ORDERED: DiphenhydrAMINE 50 mg/ml Inj IVP ONE (15:07)
[2017-09-19] MEDS: Epoetin Alfa 10,000 unit/ml Dialysis IV SCH (15:56)
--- NOTE | 2017-09-19 21:14 | CP.PCM.PN ---
Subjective - Date & Time of Evaluation Date of Evaluation: 09/19/17 Time of Evaluation: 12:40 - Subjective Subjective: Podiatry Progress Note- Dr. Tilley: 31 yo diabetic female seen and evaluated during dialysis for b/l 3rd toe pain/ swelling. Patient is seen sitting at bedside and in NAD. Patient denies f/n/v/c/ sob/cp/weakness or calf pain at this time. Patient denies acute overnight events. Dressing is c/d/i. Patient was sleepy during visitation, falling asleep during interview. Patient has no other pedal complaints at this time Objective - Vital Signs/Intake and Output Vital Signs (last 24 hours): Temp Pulse Resp BP Pulse Ox 98 F 98 H 22 157/85 H 99 09/19/17 17:45 09/19/17 17:45 09/19/17 17:45 09/19/17 17:45 09/19/17 14:45 Intake and Output: 09/19/17 09/20/17 18:59 06:59 Intake Total 500 Balance 500 - Medications Medications: Current Medications Calcium Acetate (Phoslo) 667 mg PO TIDCC [facility] Last Admin: 09/19/17 18:08 Dose: Not Given Clonidine HCl (Catapres) 0.3 mg PO BID [facility] Last Admin: 09/19/17 18:28 Dose: Not Given Diphenhydramine HCl (Benadryl) 25 mg IVP Q3 [facility] Last Admin: 09/19/17 20:23 Dose: 25 mg Diphenhydramine HCl (Benadryl) 25 mg IVP ONCE PRN PRN Reason: body itchiness Last Admin: 09/19/17 00:24 Dose: 25 mg Docusate Sodium (Colace) 100 mg PO TID [facility] Last Admin: 09/19/17 18:28 Dose: Not Given Epoetin James (Procrit) 10,000 unit IV MWF [facility] Last Admin: 09/19/17 15:56 Dose: 10,000 unit Ergocalciferol (Drisdol 50,000 Intl Units Cap) 1 cap PO QWK [facility] Last Admin: 09/18/17 09:55 Dose: 1 cap Gabapentin (Neurontin) 300 mg PO DAILY [facility] Last Admin: 09/19/17 11:11 Dose: Not Given Hydralazine HCl (Apresoline) 25 mg PO QID [facility] Last Admin: 09/19/17 18:36 Dose: Not Given Hydromorphone HCl (Dilaudid) 2 mg IVP Q4H PRN PRN Reason: Pain, moderate (4-7) Last Admin: 09/19/17 20:28 Dose: 2 mg Vancomycin HCl 1 gm/ Sodium (Chloride) 250 mls @ 166.667 mls/hr IVPB MWF [facility] Stop: 09/22/17 09:01 Last Admin: 09/19/17 11:35 Dose: Not Given Insulin Glargine (Lantus) 25 unit SC HS [facility] Last Admin: 09/18/17 21:53 Dose: 25 unit Insulin Human Regular (Novolin R) 0 unit SC ACHS [facility] PRN Reason: Protocol Last Admin: 09/19/17 18:28 Dose: Not Given Metoclopramide HCl (Reglan) 10 mg PO DAILY [facility] Last Admin: 09/19/17 17:28 Dose: 10 mg Nifedipine (Procardia Xl) 30 mg PO DAILY [facility] Last Admin: 09/19/17 11:11 Dose: Not Given Ondansetron HCl (Zofran Odt) 8 mg PO Q6 PRN PRN Reason: Nausea/Vomiting Last Admin: 09/13/17 04:01 Dose: 8 mg Pantoprazole Sodium (Protonix Ec Tab) 40 mg PO DAILY [facility] Last Admin: 09/19/17 11:12 Dose: Not Given Sevelamer Carbonate (Renvela) 0.8 gm PO TIDCC [facility] Last Admin: 09/19/17 18:09 Dose: Not Given Vitamin B Complex/Vit C/Folic Acid (Nephro-Vamshi) 1 tab PO 0800 [facility] Last Admin: 09/19/17 08:29 Dose: 1 tab - Labs Labs: 09/17/17 14:28 09/17/17 14:28 - Constitutional Appears: Well, Non-toxic, No Acute Distress - Extremities Exam Additional comments: B/L LE exam: VASC- pedal pulses fully palpable b/l (grade 2/4), cap refill < 3 sec to all digits x10, cap refill is brisk to all toes, 3rd digit b/l appears grossly edematous circumferentially NEURO- gross and protective pedal sensation is intact BL DERM- toenails 1-2 on b/l are thickened and discolored, hypergranulation tissue is noted to nail bed of 3rd digiti b/l with no evidence of drainage, neg malodor , neg erythema (distal aspect of both toes appear to have darkened skin changes) , well healed cicatrix is noted to 4th interspace of right foot (previous ulceration) ORTHO -tenderness to palp of b/l 3rd toe and also to palp of lateral nail border left hallux - Neurological Exam Neurological Exam: Alert, Awake, Oriented x3 Assessment and Plan - Assessment and Plan (Free Text) Assessment: 31 yo diabetic female pt w/ painful/edematous 3rd digit b/l feet possibly secondary to osteomyelitis. Plan: Patient seen and evaluated at bedside Discussed plan in detail with attending Dr. Tilley Chart and labs reviewed: afebrile, no leukocytosis Continue IV abx per ID. -Recommending 6 weeks of IV abx, Vancomycin 1gm. Discussed with pt potential indicated treatment option of digital amputations vs senior care antibiotic, including risks, benefits, complications and potential alternatives. Per Dr. Tilley no planned amputations at this time. Pt to undergo senior care IV antibiotic therapy on outpatient basis. Pt is stable for discharge from podiatric standpoint.
--- NOTE | 2017-09-19 22:18 | CP.PCM.PN ---
Subjective - Date & Time of Evaluation Date of Evaluation: 09/19/17 Time of Evaluation: 13:00 - Subjective Subjective: SEEN ON RENAL F/U SEEN ON HD ALL PREVIOUS EMR REVIEWED FEELS BETTER Objective - Vital Signs/Intake and Output Vital Signs (last 24 hours): Temp Pulse Resp BP Pulse Ox 98 F 98 H 22 157/85 H 99 09/19/17 17:45 09/19/17 17:45 09/19/17 17:45 09/19/17 17:45 09/19/17 14:45 Intake and Output: 09/19/17 09/20/17 18:59 06:59 Intake Total 500 Balance 500 - Medications Medications: Current Medications Calcium Acetate (Phoslo) 667 mg PO TIDCC [facility] Last Admin: 09/19/17 18:08 Dose: Not Given Clonidine HCl (Catapres) 0.3 mg PO BID [facility] Last Admin: 09/19/17 18:28 Dose: Not Given Diphenhydramine HCl (Benadryl) 25 mg IVP Q3 [facility] Last Admin: 09/19/17 20:23 Dose: 25 mg Diphenhydramine HCl (Benadryl) 25 mg IVP ONCE PRN PRN Reason: body itchiness Last Admin: 09/19/17 00:24 Dose: 25 mg Docusate Sodium (Colace) 100 mg PO TID [facility] Last Admin: 09/19/17 18:28 Dose: Not Given Epoetin James (Procrit) 10,000 unit IV MWF [facility] Last Admin: 09/19/17 15:56 Dose: 10,000 unit Ergocalciferol (Drisdol 50,000 Intl Units Cap) 1 cap PO QWK [facility] Last Admin: 09/18/17 09:55 Dose: 1 cap Gabapentin (Neurontin) 300 mg PO DAILY [facility] Last Admin: 09/19/17 11:11 Dose: Not Given Hydralazine HCl (Apresoline) 25 mg PO QID [facility] Last Admin: 09/19/17 18:36 Dose: Not Given Hydromorphone HCl (Dilaudid) 2 mg IVP Q4H PRN PRN Reason: Pain, moderate (4-7) Last Admin: 09/19/17 20:28 Dose: 2 mg Vancomycin HCl 1 gm/ Sodium (Chloride) 250 mls @ 166.667 mls/hr IVPB MWF [facility] Stop: 09/22/17 09:01 Last Admin: 09/19/17 11:35 Dose: Not Given Insulin Glargine (Lantus) 25 unit SC HS [facility] Last Admin: 09/18/17 21:53 Dose: 25 unit Insulin Human Regular (Novolin R) 0 unit SC ACHS [facility] PRN Reason: Protocol Last Admin: 09/19/17 18:28 Dose: Not Given Metoclopramide HCl (Reglan) 10 mg PO DAILY [facility] Last Admin: 09/19/17 17:28 Dose: 10 mg Nifedipine (Procardia Xl) 30 mg PO DAILY [facility] Last Admin: 09/19/17 11:11 Dose: Not Given Ondansetron HCl (Zofran Odt) 8 mg PO Q6 PRN PRN Reason: Nausea/Vomiting Last Admin: 09/13/17 04:01 Dose: 8 mg Pantoprazole Sodium (Protonix Ec Tab) 40 mg PO DAILY [facility] Last Admin: 09/19/17 11:12 Dose: Not Given Sevelamer Carbonate (Renvela) 0.8 gm PO TIDCC [facility] Last Admin: 09/19/17 18:09 Dose: Not Given Vitamin B Complex/Vit C/Folic Acid (Nephro-Vamshi) 1 tab PO 0800 [facility] Last Admin: 09/19/17 08:29 Dose: 1 tab - Labs Labs: 09/17/17 14:28 09/17/17 14:28 Assessment and Plan - Assessment and Plan (Free Text) Assessment: ESRD ON HD M W F AND SAT .. THIS WEEK TOMORROW SUNNY AND SAT ANEMIA OF CKD .. ON EPO MMP P : C/O SUPPORTIVE CARE C/O CURRENT MEDS
[2017-09-19] MEDS: (Lantus) Insulin Glargine, Recombinant SC SCH (22:24)
[2017-09-20] MEDS: DiphenhydrAMINE 50 mg/ml Inj IVP SCH ×10 (00:33→21:58)
--- NOTE | 2017-09-20 07:10 | CP.PCM.CON ---
<Kiran Lopez - Last Filed: 09/20/17 08:28> History of Present Illness - History of Present Illness History of Present Illness: GI Consult Note: 31 year old female with past medical history of Diabetes, ESRD on dialysis, chronic anemia 2/2 kidney disease, PUD 04/2016, biliary erosive Gastritis, Gastroparesis 2001, and esophageal candidiasis presents with abdominal pain, nausea and vomiting. Patient states that she came from dialysis yesterday and 4L were removed. She subsequently started having severe epigastric abdominal pain associated with > 10 bouts of nausea with bilious looking vomiting. The pain is non radiating and 10/10 in severity. Patient also complains of associated heartburn, indigestion, and acid reflux. Patient states that this has occurred before and states it is related to her gastroparesis. She states that the nurses have given her zofran which has not alleviated her symptoms. Of note patient has bee here for evaluation of gastroparesis numerous times in the past. GI consulted for abdominal pain, nausea and vomiting. 12 Point ROS performed and negative other than stated above PMH: as above PSHx: cholecystectomy 2010, abdominal abscess "between pancreas and stomach" 2001, left chest wall debridement 2016 Med: refer to [facility] ALL: ketorolac, latex, morphine, and tramadol FH- Mother with diabetes, Paternal aunt- stomach cancer diagnosed at 60 years of age SH- denies tobacco, alcohol, illicit drug use Endo hx: Multiple prior EGDs with PUD (2013,2015), biliary/erosive/ nodular Gastritis (2014), LAGC esophagitis(2015), duodenitis (2013), and esophageal candidiasis (2014). Recent EGD 01/2017 at [facility] reportedly normal. No prior colonoscopy. Review of Systems - Review of Systems All systems: reviewed and no additional remarkable complaints except Past Patient History - Infectious Disease Hx of Infectious Diseases: None - Tetanus Immunizations Tetanus Immunization: Unknown - Past Medical History & Family History Past Medical History?: Yes - Past Social History Smoking Status: Never Smoked - CARDIAC Hx Cardiac Disorders: Yes Hx Congestive Heart Failure: Yes Hx Hypercholesterolemia: Yes Hx Hypertension: Yes Hx Peripheral Edema: Yes - PULMONARY Hx Respiratory Disorders: Yes Hx Asthma: Yes Hx Bronchitis: Yes Hx Pneumonia: Yes Hx Sleep Apnea: Yes - NEUROLOGICAL Hx Neurological Disorder: Yes Hx Seizures: Yes - HEENT Hx HEENT Problems: Yes Hx Cataracts: Yes Hx Glaucoma: Yes - RENAL Hx Chronic Kidney Disease: Yes Hx Kidney Stones: Yes - ENDOCRINE/METABOLIC Hx Endocrine Disorders: Yes Hx Hyperthyroidism: Yes Hx Hypothyroidism: Yes - HEMATOLOGICAL/ONCOLOGICAL Hx Blood Disorders: Yes Hx Anemia: Yes - INTEGUMENTARY Hx Dermatological Problems: Yes Other/Comment: DRY ITCHY SKIN ;multiple/generalized dark spots on skin. left toe blister - MUSCULOSKELETAL/RHEUMATOLOGICAL Hx Musculoskeletal Disorders: Yes Hx Falls: No Hx Fractures: Yes (Sep 2012 L foot) - GASTROINTESTINAL Hx Gastrointestinal Disorders: Yes Hx Gall Bladder Disease: Yes (gallbladder removed) Hx Gastritis: Yes Hx Pancreatitis: Yes (chronic) - GENITOURINARY/GYNECOLOGICAL Hx Genitourinary Disorders: No - PSYCHIATRIC Hx Psychophysiologic Disorder: Yes Hx Anxiety: Yes Hx Substance Use: No - SURGICAL HISTORY Hx Surgeries: Yes Hx Cholecystectomy: Yes Hx Coronary Stent: Yes - ANESTHESIA Hx Anesthesia: Yes Hx Anesthesia Reactions: No Hx Malignant Hyperthermia: No Meds Allergies/Adverse Reactions: Allergies Allergy/AdvReac Type Severity Reaction Status Date / Time ketorolac tromethamine Allergy RASH Verified 08/16/17 17:16 [From Toradol] latex Allergy RASH Verified 08/16/17 17:16 morphine Allergy RASH Verified 08/16/17 17:16 tramadol Allergy RASH Verified 08/16/17 17:16 - Medications Medications: Current Medications Calcium Acetate (Phoslo) 667 mg PO TIDCC [facility] Last Admin: 09/19/17 18:08 Dose: Not Given Clonidine HCl (Catapres) 0.3 mg PO BID [facility] Last Admin: 09/19/17 18:28 Dose: Not Given Diphenhydramine HCl (Benadryl) 25 mg IVP Q3 [facility] Last Admin: 09/20/17 04:26 Dose: 25 mg Diphenhydramine HCl (Benadryl) 25 mg IVP ONCE PRN PRN Reason: body itchiness Last Admin: 09/19/17 00:24 Dose: 25 mg Docusate Sodium (Colace) 100 mg PO TID [facility] Last Admin: 09/19/17 18:28 Dose: Not Given Epoetin James (Procrit) 10,000 unit IV MWF [facility] Last Admin: 09/19/17 15:56 Dose: 10,000 unit Ergocalciferol (Drisdol 50,000 Intl Units Cap) 1 cap PO QWK [facility] Last Admin: 09/18/17 09:55 Dose: 1 cap Gabapentin (Neurontin) 300 mg PO DAILY [facility] Last Admin: 09/19/17 11:11 Dose: Not Given Hydralazine HCl (Apresoline) 25 mg PO QID [facility] Last Admin: 09/19/17 22:24 Dose: Not Given Hydromorphone HCl (Dilaudid) 2 mg IVP Q4H PRN PRN Reason: Pain, moderate (4-7) Last Admin: 09/20/17 04:25 Dose: 2 mg Vancomycin HCl 1 gm/ Sodium (Chloride) 250 mls @ 166.667 mls/hr IVPB MWF [facility] Stop: 09/22/17 09:01 Last Admin: 09/19/17 11:35 Dose: Not Given Insulin Glargine (Lantus) 25 unit SC HS [facility] Last Admin: 09/19/17 22:24 Dose: Not Given Insulin Human Regular (Novolin R) 0 unit SC ACHS [facility] PRN Reason: Protocol Last Admin: 09/19/17 22:24 Dose: Not Given Metoclopramide HCl (Reglan) 10 mg PO DAILY [facility] Last Admin: 09/19/17 17:28 Dose: 10 mg Nifedipine (Procardia Xl) 30 mg PO DAILY [facility] Last Admin: 09/19/17 11:11 Dose: Not Given Ondansetron HCl (Zofran Odt) 8 mg PO Q6 PRN PRN Reason: Nausea/Vomiting Last Admin: 09/20/17 04:26 Dose: 8 mg Pantoprazole Sodium (Protonix Ec Tab) 40 mg PO DAILY [facility] Last Admin: 09/19/17 11:12 Dose: Not Given Sevelamer Carbonate (Renvela) 0.8 gm PO TIDCC [facility] Last Admin: 09/19/17 18:09 Dose: Not Given Vitamin B Complex/Vit C/Folic Acid (Nephro-Vamshi) 1 tab PO 0800 [facility] Last Admin: 09/19/17 08:29 Dose: 1 tab Physical Exam - Constitutional Appears: No Acute Distress - Head Exam Head Exam: ATRAUMATIC, NORMOCEPHALIC - Eye Exam Eye Exam: EOMI, PERRL - ENT Exam ENT Exam: Mucous Membranes Moist - Respiratory Exam Respiratory Exam: Clear to Auscultation Bilateral. absent: Rales, Wheezes - Cardiovascular Exam Cardiovascular Exam: REGULAR RHYTHM, RRR, +S1, +S2 - GI/Abdominal Exam GI & Abdominal Exam: Normal Bowel Sounds, Soft. absent: Distended, Organomegaly , Tenderness - Extremities Exam Extremities exam: Negative for: calf tenderness - Neurological Exam Neurological exam: Alert, Oriented x3 - Psychiatric Exam Psychiatric exam: Normal Mood - Skin Skin Exam: Dry, Intact, Warm Results - Vital Signs Recent Vital Signs: Last Vital Signs Temp 98 F 09/19/17 17:45 Pulse 98 H 09/19/17 17:45 Resp 22 09/19/17 17:45 BP 157/85 H 09/19/17 17:45 Pulse Ox 99 09/19/17 14:45 - Labs Result Diagrams: 09/17/17 14:28 09/17/17 14:28 Labs: Laboratory Results - last 24 hr 09/19/17 09/19/17 09/19/17 06:33 16:31 18:15 POC Glucose (mg/dL) 207 H 170 H Troponin I 0.0250 Assessment & Plan - Assessment and Plan (Free Text) Assessment: 31 year old female with history of Diabetes, ESRD on HD MWF, chronic anemia 2/2 kidney disease, PUD 04/2016, biliary erosive Gastritis, Gastroparesis, and esophageal candidiasis presents with abdominal pain, nausea, and vomiting likely 2/2 gastroparesis. 1. Gastroparesis 2. hx of PUD 3. Diabetes -Clear liquid diet as tolerated -Abdominal X-ray for nausea and vomiting r/o any obstruction -Changed PO Zofran, reglan, and protonix to IVP -Stool studies ordered - will follow up -Supportive care with anti-emetics and pain control -Continue antibiotics as per ID -F/u nephrology consult and recs -Limit the use of narcotics -Monitor H/H -Will follow the patients clinical course Case and plan was reviewed and discussed in detail with Dr Multani. <Regino Multani Y - Last Filed: 09/20/17 12:26> Meds - Medications Medications: Current Medications Calcium Acetate (Phoslo) 667 mg PO TIDCC [facility] Last Admin: 09/20/17 08:29 Dose: Not Given Clonidine HCl (Catapres) 0.3 mg PO BID [facility] Last Admin: 09/20/17 10:00 Dose: Not Given Diphenhydramine HCl (Benadryl) 25 mg IVP Q3 [facility] Last Admin: 09/20/17 08:24 Dose: 25 mg Diphenhydramine HCl (Benadryl) 25 mg IVP ONCE PRN PRN Reason: body itchiness Last Admin: 09/19/17 00:24 Dose: 25 mg Docusate Sodium (Colace) 100 mg PO TID [facility] Last Admin: 09/20/17 10:00 Dose: Not Given Epoetin James (Procrit) 10,000 unit IV [facility] Last Admin: 09/19/17 15:56 Dose: 10,000 unit Ergocalciferol (Drisdol 50,000 Intl Units Cap) 1 cap PO QWK [facility] Last Admin: 09/18/17 09:55 Dose: 1 cap Gabapentin (Neurontin) 300 mg PO DAILY [facility] Last Admin: 09/20/17 10:00 Dose: Not Given Hydralazine HCl (Apresoline) 25 mg PO QID [facility] Last Admin: 09/20/17 10:00 Dose: Not Given Hydromorphone HCl (Dilaudid) 2 mg IVP Q4H PRN PRN Reason: Pain, moderate (4-7) Last Admin: 09/20/17 08:24 Dose: 2 mg Vancomycin HCl 1 gm/ Sodium (Chloride) 250 mls @ 166.667 mls/hr IVPB [facility] Stop: 09/22/17 09:01 Last Admin: 09/19/17 11:35 Dose: Not Given Insulin Glargine (Lantus) 25 unit SC [facility] Last Admin: 09/19/17 22:24 Dose: Not Given Insulin Human Regular (Novolin R) 0 unit SC [facility] PRN Reason: Protocol Last Admin: 09/20/17 07:41 Dose: Not Given Metoclopramide HCl (Reglan) 10 mg IVP Q8 PRN PRN Reason: Nausea/Vomiting Last Admin: 09/20/17 08:30 Dose: 10 mg Nifedipine (Procardia Xl) 30 mg PO DAILY [facility] Last Admin: 09/20/17 10:00 Dose: Not Given Ondansetron HCl (Zofran Inj) 4 mg IVP Q8H PRN PRN Reason: Nausea/Vomiting Pantoprazole Sodium (Protonix Inj) 40 mg IVP DAILY [facility] Last Admin: 09/20/17 10:00 Dose: Not Given Sevelamer Carbonate (Renvela) 0.8 gm PO TIDCC [facility] Last Admin: 09/20/17 08:29 Dose: Not Given Vitamin B Complex/Vit C/Folic Acid (Nephro-Vamshi) 1 tab PO 0800 [facility] Last Admin: 09/20/17 08:29 Dose: Not Given Results - Vital Signs Recent Vital Signs: Last Vital Signs Temp 98 F 09/19/17 17:45 Pulse 98 H 09/19/17 17:45 Resp 22 09/19/17 17:45 BP 157/85 H 09/19/17 17:45 Pulse Ox 99 09/19/17 14:45 - Labs Result Diagrams: 09/20/17 11:30 09/20/17 11:30 Labs: Laboratory Results - last 24 hr 09/19/17 09/19/17 09/20/17 16:31 18:15 11:30 WBC 11.4 H D RBC 3.59 L Hgb 11.3 Hct 34.3 MCV 95.5 MCH 31.4 H MCHC 32.9 L RDW 17.2 H Plt Count 334 MPV 8.5 Neut % (Auto) 90.5 H Lymph % (Auto) 5.4 L [place] % (Auto) 4.1 Eos % (Auto) 0.0 Baso % (Auto) 0.0 Neut # (Auto) 10.3 H Lymph # (Auto) 0.6 L [place] # (Auto) 0.5 Eos # (Auto) 0.0 Baso # (Auto) 0.0 Sodium Potassium Chloride Carbon Dioxide Anion Gap BUN Creatinine Est GFR ( Amer) Est GFR (Non-Af Amer) POC Glucose (mg/dL) 170 H Random Glucose Lactic Acid Calcium Total Bilirubin AST ALT Alkaline Phosphatase Troponin I 0.0250 Total Protein Albumin Globulin Albumin/Globulin Ratio 09/20/17 09/20/17 11:30 11:32 WBC RBC Hgb Hct MCV MCH MCHC RDW Plt Count MPV Neut % (Auto) Lymph % (Auto) [place] % (Auto) Eos % (Auto) Baso % (Auto) Neut # (Auto) Lymph # (Auto) [place] # (Auto) Eos # (Auto) Baso # (Auto) Sodium 139 Potassium 4.7 Chloride 88 L Carbon Dioxide 28 Anion Gap 28 H BUN 64 H Creatinine 6.9 H Est GFR ( Amer) 8 Est GFR (Non-Af Amer) 7 POC Glucose (mg/dL) Random Glucose 345 H Lactic Acid 0.8 Calcium 8.9 Total Bilirubin 0.6 AST 28 ALT 15 Alkaline Phosphatase 187 H D Troponin I Total Protein 8.7 H Albumin 4.5 Globulin 4.2 H Albumin/Globulin Ratio 1.1 Attending/Attestation - Attestation I have personally seen and examined this patient.: Yes I have fully participated in the care of the patient.: Yes I have reviewed all pertinent clinical information: Yes Notes (Text): 09/20/17 12:18 I have seen and examined patient with GI fellow and medical claims analyst. Agree with above documentation with the following additions. In brief, this is a 31 year old female DM, ESRD on HD, peptic ulcer disease, who presents with complaint of nausea, vomiting, and abdominal pain which started following dialysis yesterday. She describes severe epigastric, 10/10 pain associated with multiple bouts of bilious emesis. She had a normal formed bowel movement yesterday. She denies fever/chills, weight loss, rectal bleeding, NSAID use. She uses chronic opiate therapy at home which she has also been receiving here in hospital. She also has history of gastroparesis, on pro-kinetic therapy as outpatient. She underwent EGD in 2015 which showed esophagitis, gastritis and reportedly had a more recent EGD at [facility] in January 2017 which was normal as per patient. Review of vitals from today shows tachycardia, elevated BP. DM ESRD on HD Abdominal pain, gastroparesis Nausea, vomiting - Clear liquid diet as tolerated - Anti-emetic therapy - Ideally, would favor CT imaging to rule out obstructive pathology but given patient inability to tolerate PO contrast will obtain AXR to rule out small bowel dilation, air/fluid levels - Pain control - Obtain serum lactic acid - Ensure tight glycemic control - Continue with PPI therapy - Will continue to monitor patient clinical course
[2017-09-20] MEDS ORDERED: Trimethobenzamide 200 mg/2 mL Inj IM ONE (07:38)
[2017-09-20] MEDS: (Novolin R) Insulin Human Regular 100 units/ml vial SC SCH ×4 (07:41→21:59)
[2017-09-20] MEDS: HYDROmorphone 0.5 mg/0.5 ml ISec IVP PRN ×4 (08:24→20:11)
[2017-09-20] MEDS: Multivitamin Vitamin B Complex (Nephro-Vite) Tab PO SCH (08:29)
[2017-09-20] MEDS: Sevelamer Carb 0.8 gm/Packet PO SCH ×3 (08:29→17:19)
[2017-09-20] MEDS: NIFEdipine 30 mg ER Tab PO SCH (10:00)
[2017-09-20 11:48] LABS: HEMOGLOBIN 11.3 g/dL (11.0-16.0); LYMPH # 0.6 K/uL (1.0-4.3); LYMPH % 5.4 % (20.0-40.0); MEAN CELL VOLUME 95.5 fL (81.0-99.0); MEAN CORPUSCULAR HEMOGLOBIN 31.4 pg (27.0-31.0); MEAN CORPUSCULAR HGB CONC 32.9 g/dL (33.0-37.0); MEAN PLATELET VOLUME 8.5 fL (7.2-11.7); MONO # 0.5 K/uL (0.0-0.8); MONO % 4.1 % (0.0-10.0); NEUT # 10.3 K/uL (1.8-7.0); NEUT % 90.5 % (50.0-75.0); PLATELET COUNT 334 K/uL (130-400); RBC 3.59 Mil/uL (3.80-5.20); RED CELL DISTRIBUTION WIDTH 17.2 % (11.5-14.5)
[2017-09-20 11:50] LABS: WHITE BLOOD COUNT 11.4 K/uL (4.8-10.8)
[2017-09-20 12:05] LABS: ALB/GLOB RATIO 1.1 (1.0-2.1); ALBUMIN 4.5 g/dL (3.5-5.0); CALCIUM 8.9 mg/dl (8.6-10.4)
[2017-09-20 12:23] LABS: LYMPHOCYTE 6 % (20-40); MONOCYTE 3 % (0-10); NEUTROPHIL 91 % (50-75); NUCLEATED RED BLOOD CELL 1 % (0-0); PLATELET ESTIMATE NORMAL (NORMAL); TOTAL CELLS COUNTED 100
[2017-09-20 12:24] LABS: ANISOCYTOSIS SLIGHT; HYPOCHROMIC SLIGHT; LARGE PLATELETS PRESENT; POIKILOCYTOSIS SLIGHT; TARGET CELLS SLIGHT; TEARDROP CELLS SLIGHT
--- NOTE | 2017-09-20 18:31 | CP.PCM.PN ---
Subjective - Date & Time of Evaluation Date of Evaluation: 09/20/17 Time of Evaluation: 11:00 - Subjective Subjective: clinically same Objective - Vital Signs/Intake and Output Vital Signs (last 24 hours): Temp Pulse Resp BP Pulse Ox 98.3 F 106 H 20 178/115 H 100 09/20/17 16:55 09/20/17 16:55 09/20/17 16:55 09/20/17 16:55 09/20/17 16:55 Intake and Output: 09/20/17 09/20/17 06:59 18:59 Intake Total 100 Balance 100 - Medications Medications: Current Medications Calcium Acetate (Phoslo) 667 mg PO TIDCC [facility] Last Admin: 09/20/17 17:16 Dose: 667 mg Clonidine HCl (Catapres) 0.3 mg PO BID [facility] Last Admin: 09/20/17 17:19 Dose: 0.3 mg Diphenhydramine HCl (Benadryl) 25 mg IVP Q3 [facility] Last Admin: 09/20/17 16:11 Dose: 25 mg Diphenhydramine HCl (Benadryl) 25 mg IVP ONCE PRN PRN Reason: body itchiness Last Admin: 09/19/17 00:24 Dose: 25 mg Docusate Sodium (Colace) 100 mg PO TID [facility] Last Admin: 09/20/17 17:16 Dose: 100 mg Epoetin James (Procrit) 10,000 unit IV [facility] Last Admin: 09/19/17 15:56 Dose: 10,000 unit Ergocalciferol (Drisdol 50,000 Intl Units Cap) 1 cap PO QWK [facility] Last Admin: 09/18/17 09:55 Dose: 1 cap Gabapentin (Neurontin) 300 mg PO DAILY [facility] Last Admin: 09/20/17 10:00 Dose: Not Given Hydralazine HCl (Apresoline) 25 mg PO QID [facility] Last Admin: 09/20/17 17:16 Dose: 25 mg Hydromorphone HCl (Dilaudid) 2 mg IVP Q4H PRN PRN Reason: Pain, moderate (4-7) Last Admin: 09/20/17 16:11 Dose: 2 mg Vancomycin HCl 1 gm/ Sodium (Chloride) 200 mls @ 166.667 mls/hr IVPB [facility] Stop: 09/22/17 09:01 Insulin Glargine (Lantus) 25 unit SC HS [facility] Last Admin: 09/19/17 22:24 Dose: Not Given Insulin Human Regular (Novolin R) 0 unit SC ACHS [facility] PRN Reason: Protocol Last Admin: 09/20/17 17:20 Dose: 3 unit Metoclopramide HCl (Reglan) 10 mg IVP Q8 PRN PRN Reason: Nausea/Vomiting Last Admin: 09/20/17 17:15 Dose: 10 mg Nifedipine (Procardia Xl) 30 mg PO DAILY [facility] Last Admin: 09/20/17 10:00 Dose: Not Given Ondansetron HCl (Zofran Inj) 4 mg IVP Q8H PRN PRN Reason: Nausea/Vomiting Last Admin: 09/20/17 12:19 Dose: 4 mg Pantoprazole Sodium (Protonix Inj) 40 mg IVP DAILY [facility] Last Admin: 09/20/17 10:00 Dose: Not Given Sevelamer Carbonate (Renvela) 0.8 gm PO TIDCC [facility] Last Admin: 09/20/17 17:19 Dose: 0.8 gm Vitamin B Complex/Vit C/Folic Acid (Nephro-Vamshi) 1 tab PO 0800 [facility] Last Admin: 09/20/17 08:29 Dose: Not Given - Labs Labs: 09/20/17 11:30 09/20/17 11:30 - Constitutional Appears: Well - Head Exam Head Exam: ATRAUMATIC, NORMAL INSPECTION, NORMOCEPHALIC - Eye Exam Eye Exam: EOMI, Normal appearance, PERRL Pupil Exam: NORMAL ACCOMODATION, PERRL - ENT Exam ENT Exam: Mucous Membranes Moist, Normal Exam - Neck Exam Neck Exam: Full ROM, Normal Inspection. absent: Lymphadenopathy - Respiratory Exam Respiratory Exam: Decreased Breath Sounds - Cardiovascular Exam Cardiovascular Exam: REGULAR RHYTHM, +S1, +S2 - GI/Abdominal Exam GI & Abdominal Exam: Soft, Diminished Bowel Sounds - Rectal Exam Rectal Exam: Deferred
[2017-09-20] MEDS: (Lantus) Insulin Glargine, Recombinant SC SCH (21:58)
--- NOTE | 2017-09-20 23:27 | CP.PCM.PN ---
Subjective - Date & Time of Evaluation Date of Evaluation: 09/20/17 Time of Evaluation: 15:00 - Subjective Subjective: SEEN ON RENAL F/U SEEN ON HD FEELS IMPROVED TOLERATING HD WELL Objective - Vital Signs/Intake and Output Vital Signs (last 24 hours): Temp Pulse Resp BP Pulse Ox 98.3 F 106 H 20 178/115 H 100 09/20/17 16:55 09/20/17 16:55 09/20/17 16:55 09/20/17 16:55 09/20/17 16:55 Intake and Output: 09/20/17 09/21/17 18:59 06:59 Intake Total 100 Balance 100 - Medications Medications: Current Medications Calcium Acetate (Phoslo) 667 mg PO TIDCC [facility] Last Admin: 09/20/17 17:16 Dose: 667 mg Clonidine HCl (Catapres) 0.3 mg PO BID [facility] Last Admin: 09/20/17 17:19 Dose: 0.3 mg Diphenhydramine HCl (Benadryl) 25 mg IVP Q3 [facility] Last Admin: 09/20/17 21:58 Dose: Not Given Diphenhydramine HCl (Benadryl) 25 mg IVP ONCE PRN PRN Reason: body itchiness Last Admin: 09/19/17 00:24 Dose: 25 mg Docusate Sodium (Colace) 100 mg PO TID [facility] Last Admin: 09/20/17 17:16 Dose: 100 mg Epoetin James (Procrit) 10,000 unit IV MWF [facility] Last Admin: 09/19/17 15:56 Dose: 10,000 unit Ergocalciferol (Drisdol 50,000 Intl Units Cap) 1 cap PO QWK [facility] Last Admin: 09/18/17 09:55 Dose: 1 cap Gabapentin (Neurontin) 300 mg PO DAILY [facility] Last Admin: 09/20/17 10:00 Dose: Not Given Hydralazine HCl (Apresoline) 25 mg PO QID [facility] Last Admin: 09/20/17 21:58 Dose: Not Given Hydromorphone HCl (Dilaudid) 2 mg IVP Q4H PRN PRN Reason: Pain, moderate (4-7) Last Admin: 09/20/17 20:11 Dose: 2 mg Vancomycin HCl 1 gm/ Sodium (Chloride) 200 mls @ 166.667 mls/hr IVPB MWF [facility] Stop: 09/22/17 09:01 Insulin Glargine (Lantus) 25 unit SC HS [facility] Last Admin: 09/20/17 21:58 Dose: Not Given Insulin Human Regular (Novolin R) 0 unit SC ACHS [facility] PRN Reason: Protocol Last Admin: 09/20/17 21:59 Dose: Not Given Metoclopramide HCl (Reglan) 10 mg IVP Q8 PRN PRN Reason: Nausea/Vomiting Last Admin: 09/20/17 17:15 Dose: 10 mg Nifedipine (Procardia Xl) 30 mg PO DAILY [facility] Last Admin: 09/20/17 10:00 Dose: Not Given Ondansetron HCl (Zofran Inj) 4 mg IVP Q8H PRN PRN Reason: Nausea/Vomiting Last Admin: 09/20/17 12:19 Dose: 4 mg Pantoprazole Sodium (Protonix Inj) 40 mg IVP DAILY [facility] Last Admin: 09/20/17 10:00 Dose: Not Given Sevelamer Carbonate (Renvela) 0.8 gm PO TIDCC [facility] Last Admin: 09/20/17 17:19 Dose: 0.8 gm Vitamin B Complex/Vit C/Folic Acid (Nephro-Vamshi) 1 tab PO 0800 [facility] Last Admin: 09/20/17 08:29 Dose: Not Given - Labs Labs: 09/20/17 11:30 09/20/17 11:30 Assessment and Plan - Assessment and Plan (Free Text) Assessment: ESRD ON HD QID ANEMIA OF CKD .. ON EPO MMP P : C/O CURRENT CARE C/O PRESENT MEDS
[2017-09-21] MEDS: DiphenhydrAMINE 50 mg/ml Inj IVP SCH ×5 (00:08→14:09)
[2017-09-21] MEDS: HYDROmorphone 0.5 mg/0.5 ml ISec IVP PRN ×6 (00:08→21:28)
[2017-09-21 07:31] LABS: BASO # 0.1 K/uL (0.0-0.2); EOS # 0.1 K/uL (0.0-0.7); HEMOGLOBIN 11.5 g/dL (11.0-16.0); LYMPH # 1.8 K/uL (1.0-4.3); MEAN CELL VOLUME 95.7 fL (81.0-99.0); MEAN CORPUSCULAR HEMOGLOBIN 31.9 pg (27.0-31.0); MEAN CORPUSCULAR HGB CONC 33.4 g/dL (33.0-37.0); MEAN PLATELET VOLUME 8.6 fL (7.2-11.7); MONO # 0.9 K/uL (0.0-0.8); NEUT # 6.7 K/uL (1.8-7.0); NRBC % 0.1 % (0.0-2.0); RBC 3.59 Mil/uL (3.80-5.20); RED CELL DISTRIBUTION WIDTH 17.9 % (11.5-14.5); WHITE BLOOD COUNT 9.5 K/uL (4.8-10.8)
[2017-09-21] MEDS: (Novolin R) Insulin Human Regular 100 units/ml vial SC SCH ×4 (08:18→21:36)
[2017-09-21 08:37] LABS: ALB/GLOB RATIO 1.1 (1.0-2.1); ALBUMIN 4.6 g/dL (3.5-5.0); CALCIUM 8.7 mg/dl (8.6-10.4)
[2017-09-21] MEDS: Multivitamin Vitamin B Complex (Nephro-Vite) Tab PO SCH (08:50)
[2017-09-21] MEDS: Sevelamer Carb 0.8 gm/Packet PO SCH ×3 (08:51→17:53)
[2017-09-21] MEDS ORDERED: Vancomycin 1 GM in Sodium Chloride 0.9% 200 ML IVPB SCH (09:00)
--- NOTE | 2017-09-21 09:47 | CP.PCM.PN ---
<Zechariah Covington - Last Filed: 09/21/17 12:09> Subjective - Date & Time of Evaluation Date of Evaluation: 09/21/17 Time of Evaluation: 08:00 - Subjective Subjective: PGY5 GI Fellow Progress Note Patient seen and examined bedside this morning. The patient states that she is feeling much better than yesterday. Denies abdominal pain today and was able to tolerated liquid diet. Feels that symptoms improved with Reglan administration. No further episodes of nausea, vomiting. 12 system ROS performed and negative except where stated. Objective - Vital Signs/Intake and Output Vital Signs (last 24 hours): Temp Pulse Resp BP Pulse Ox 98 F 77 20 155/93 H 100 09/21/17 07:00 09/21/17 07:00 09/21/17 07:00 09/21/17 07:00 09/21/17 07:00 - Medications Medications: Current Medications Calcium Acetate (Phoslo) 667 mg PO TIDCC [facility] Last Admin: 09/21/17 08:50 Dose: Not Given Clonidine HCl (Catapres) 0.3 mg PO BID [facility] Last Admin: 09/20/17 17:19 Dose: 0.3 mg Diphenhydramine HCl (Benadryl) 25 mg IVP Q3 [facility] Last Admin: 09/21/17 09:18 Dose: 25 mg Diphenhydramine HCl (Benadryl) 25 mg IVP ONCE PRN PRN Reason: body itchiness Last Admin: 09/19/17 00:24 Dose: 25 mg Docusate Sodium (Colace) 100 mg PO TID [facility] Last Admin: 09/20/17 17:16 Dose: 100 mg Epoetin James (Procrit) 10,000 unit IV MWF [facility] Last Admin: 09/19/17 15:56 Dose: 10,000 unit Ergocalciferol (Drisdol 50,000 Intl Units Cap) 1 cap PO QWK [facility] Last Admin: 09/18/17 09:55 Dose: 1 cap Gabapentin (Neurontin) 300 mg PO DAILY [facility] Last Admin: 09/20/17 10:00 Dose: Not Given Hydralazine HCl (Apresoline) 25 mg PO QID [facility] Last Admin: 09/21/17 00:53 Dose: 25 mg Hydromorphone HCl (Dilaudid) 2 mg IVP Q4H PRN PRN Reason: Pain, moderate (4-7) Last Admin: 09/21/17 09:18 Dose: 2 mg Vancomycin HCl 1 gm/ Sodium (Chloride) 200 mls @ 166.667 mls/hr IVPB MWF [facility] Stop: 09/22/17 09:01 Insulin Glargine (Lantus) 25 unit SC HS [facility] Last Admin: 09/20/17 21:58 Dose: Not Given Insulin Human Regular (Novolin R) 0 unit SC ACHS [facility] PRN Reason: Protocol Last Admin: 09/21/17 08:18 Dose: 3 unit Metoclopramide HCl (Reglan) 10 mg IVP Q8 PRN PRN Reason: Nausea/Vomiting Last Admin: 09/21/17 09:17 Dose: 10 mg Nifedipine (Procardia Xl) 30 mg PO DAILY [facility] Last Admin: 09/20/17 10:00 Dose: Not Given Ondansetron HCl (Zofran Inj) 4 mg IVP Q8H PRN PRN Reason: Nausea/Vomiting Last Admin: 09/21/17 00:15 Dose: 4 mg Pantoprazole Sodium (Protonix Inj) 40 mg IVP DAILY [facility] Last Admin: 09/21/17 09:17 Dose: 40 mg Sevelamer Carbonate (Renvela) 0.8 gm PO TIDCC [facility] Last Admin: 09/21/17 08:51 Dose: Not Given Vitamin B Complex/Vit C/Folic Acid (Nephro-Vamshi) 1 tab PO 0800 [facility] Last Admin: 09/21/17 08:50 Dose: Not Given - Labs Labs: 09/21/17 07:14 09/21/17 07:14 - Constitutional Appears: Non-toxic, No Acute Distress - Eye Exam Eye Exam: EOMI, PERRL - ENT Exam ENT Exam: Mucous Membranes Moist - Respiratory Exam Respiratory Exam: Clear to Ausculation Bilateral. absent: Rales, Rhonchi, Wheezes - Cardiovascular Exam Cardiovascular Exam: RRR, +S1, +S2 - GI/Abdominal Exam GI & Abdominal Exam: Soft, Tenderness (epigastric), Normal Bowel Sounds. absent : Distended, Firm, Guarding, Rigid, Organomegaly - Extremities Exam Extremities Exam: Normal Inspection. absent: Pedal Edema - Neurological Exam Neurological Exam: Alert, Awake, Oriented x3 - Psychiatric Exam Psychiatric exam: Anxious - Skin Skin Exam: Dry, Warm Assessment and Plan - Assessment and Plan (Free Text) Assessment: Patient is a 31yo female with PMHx significant for DM, ESRD on HD MWF, anemia of chronic disease, PUD, gastroparesis who presented with abdominal pain, nausea and vomiting. -Suspected exacerbation of underlying gastroparesis -Uncontrolled diabetes mellitus -ESRD on HD MWF Plan: -Prior emptying study reviewed -Patient needs tight glycemic control - prior A1c may underscore patient as she was anemic at that time as well -Can continue to use Reglan/Zofran PRN and could consider Reglan 10mg PO ACHS, recommend short course of therapy with no more than 1-2 weeks -Explained potential for side effects such as EPS with continued use of Reglan to patient who verbalized understanding -Liquid diet, slowly advance back to regular diet as tolerated - would maintain liquids for now -Patient for HD today - uremia may contribute to symptoms -If pain, vomiting recurs, consider repeat imaging (flat plate) -Goal diet: 6 small meals, low fat, low fiber <Kateryna STEWART,Rebeca - Last Filed: 09/21/17 20:35> Objective - Vital Signs/Intake and Output Vital Signs (last 24 hours): Temp Pulse Resp BP Pulse Ox 98.3 F 83 20 184/100 H 99 09/21/17 17:24 09/21/17 17:24 09/21/17 17:24 09/21/17 17:24 09/21/17 17:24 - Medications Medications: Current Medications Calcium Acetate (Phoslo) 667 mg PO TIDCC [facility] Last Admin: 09/21/17 17:49 Dose: Not Given Clonidine HCl (Catapres) 0.3 mg PO BID [facility] Last Admin: 09/21/17 10:27 Dose: Not Given Diphenhydramine HCl (Benadryl) 25 mg IVP Q4 PRN PRN Reason: Itching / Pruritus Last Admin: 09/21/17 17:45 Dose: 25 mg Docusate Sodium (Colace) 100 mg PO TID [facility] Last Admin: 09/21/17 17:49 Dose: Not Given Epoetin James (Procrit) 10,000 unit IV MWF [facility] Last Admin: 09/21/17 13:04 Dose: Not Given Ergocalciferol (Drisdol 50,000 Intl Units Cap) 1 cap PO QWK [facility] Last Admin: 09/18/17 09:55 Dose: 1 cap Gabapentin (Neurontin) 300 mg PO DAILY [facility] Last Admin: 09/21/17 10:28 Dose: Not Given Hydralazine HCl (Apresoline) 25 mg PO QID [facility] Last Admin: 09/21/17 17:49 Dose: 25 mg Hydromorphone HCl (Dilaudid) 2 mg IVP Q4H PRN PRN Reason: Pain, moderate (4-7) Last Admin: 09/21/17 17:44 Dose: 2 mg Vancomycin/Sodium Chloride (Vancomycin 1 Gm/Ns 200 Ml) 1 gm in 200 mls @ 133.333 mls/hr IVPB MOTUTHSA [facility] Stop: 09/27/17 14:01 Insulin Glargine (Lantus) 25 unit SC HS [facility] Last Admin: 09/20/17 21:58 Dose: Not Given Insulin Human Regular (Novolin R) 0 unit SC ACHS [facility] PRN Reason: Protocol Last Admin: 09/21/17 17:53 Dose: Not Given Metoclopramide HCl (Reglan) 10 mg IVP Q8 PRN PRN Reason: Nausea/Vomiting Last Admin: 09/21/17 09:17 Dose: 10 mg Nifedipine (Procardia Xl) 30 mg PO DAILY [facility] Last Admin: 09/21/17 10:28 Dose: Not Given Ondansetron HCl (Zofran Inj) 4 mg IVP Q8H PRN PRN Reason: Nausea/Vomiting Last Admin: 09/21/17 00:15 Dose: 4 mg Pantoprazole Sodium (Protonix Inj) 40 mg IVP DAILY [facility] Last Admin: 09/21/17 09:17 Dose: 40 mg Sevelamer Carbonate (Renvela) 0.8 gm PO TIDCC [facility] Last Admin: 09/21/17 17:53 Dose: Not Given Vitamin B Complex/Vit C/Folic Acid (Nephro-Vamshi) 1 tab PO 0800 [facility] Last Admin: 09/21/17 08:50 Dose: Not Given - Labs Labs: 09/21/17 07:14 09/21/17 07:14 Attending/Attestation - Attestation I have personally seen and examined this patient.: Yes I have fully participated in the care of the patient.: Yes I have reviewed all pertinent clinical information, including history, physical exam and plan: Yes Notes (Text): 09/21/17 20:33 I have seen and examined patient with GI fellow. This is a 31 year old female DM , ESRD on HD, peptic ulcer disease, who presents with complaint of nausea, vomiting, and abdominal pain which started following dialysis two days ago. She uses chronic opiate therapy at home which she has also been receiving here in hospital. She also has history of gastroparesis, on pro-kinetic therapy as outpatient. She underwent EGD in 2015 which showed esophagitis, gastritis and reportedly had a more recent EGD at [facility] in January 2017 which was normal as per patient. Her symptoms today have mostly resolved. Gastric emptying study reviewed. She tolerated CLD- advance as tolerated. One bowel movement yesterday. Continue laxatives for constipation and reglan po for gastroparesis. Ensure tight glycemic control. Continue with PPI therapy. Will sign off now. Thank you for letting us participate in the care of your patient
[2017-09-21] MEDS: NIFEdipine 30 mg ER Tab PO SCH (10:28)
[2017-09-21] MEDS: Epoetin Alfa 10,000 unit/ml Dialysis IV SCH (13:04)
[2017-09-21] MEDS: DiphenhydrAMINE 50 mg/ml Inj IVP PRN ×3 (13:35→21:27)
--- NOTE | 2017-09-21 16:15 | CP.PCM.PN ---
Subjective - Date & Time of Evaluation Date of Evaluation: 09/21/17 Time of Evaluation: 16:14 - Subjective Subjective: PATIENT SEEN AND EXAMINED AT THE BEDSIDE NAUSEA BUT DENIES VOMITING TOLERATED LIQUID DIET PATIENT DENIES ABD US BECAUSE SHE FELT NAUSEOUS DR MORALES AND DR CARVALHO MADE AWARE BLOOD PRESSURE FLUCTUATE AND PATIENT TOOK BP MEDS WHEN SHE FEELS LIKE DESPITE ALL THE RISK ASSOCIATE WITH HIGH BLOOD PRESSURE BEEN EXPLAIN TO HER MANY TIMES OSTEO NOTED ON THE FOOT --DR LARIOS ON THE CASE NOT PLANNING FOR ANY SX AT THIS TIME STATING PT NEED AT LEAST 2 WEEKS OF ABX DISCUSS WITH DR CARVALHO, DR MORALES AND DR LARIOS WHO AGREE WITH THE PLAN FOLLOW UP WITH DR Edilia CARVALHO AT HIS OFFICE IN A 1-2 WEEKS ---CALL FOR APPOINTMENT FOLLOW UP WITH DR MORALES IN 1-2 WEEK AT HIS OFFICE ---CALL FOR APPOINTMENT FOLLOW UP WITH DR LARIOS IN 5 DAYS AT HIS OFFICE ---CALL FOR APPOINTMENT CONTINUE ALL YOUR HOME MEDICATION ORDER ACTIVITY TOLERATED DIALYSIS OUT PATIENT ORDER AND DIALYSIS PROTOCOL CALL DR CARVALHO OR GO TO THE EMERGENCY ROOM IF SYMPTOMS RETURN OR WORSENING DISCUSS WITH PATIENT WHO SEEMS AGREE SOMEWHAT WITH THE PLAN Objective - Vital Signs/Intake and Output Vital Signs (last 24 hours): Temp Pulse Resp BP Pulse Ox 98 F 77 20 155/93 H 100 09/21/17 07:00 09/21/17 07:00 09/21/17 07:00 09/21/17 07:00 09/21/17 07:00 - Medications Medications: Current Medications Calcium Acetate (Phoslo) 667 mg PO TIDCC [facility] Last Admin: 09/21/17 13:05 Dose: Not Given Clonidine HCl (Catapres) 0.3 mg PO BID [facility] Last Admin: 09/21/17 10:27 Dose: Not Given Diphenhydramine HCl (Benadryl) 25 mg IVP Q4 PRN PRN Reason: Itching / Pruritus Last Admin: 09/21/17 13:35 Dose: 25 mg Docusate Sodium (Colace) 100 mg PO TID [facility] Last Admin: 09/21/17 13:41 Dose: Not Given Epoetin James (Procrit) 10,000 unit IV MWF [facility] Last Admin: 09/21/17 13:04 Dose: Not Given Ergocalciferol (Drisdol 50,000 Intl Units Cap) 1 cap PO QWK [facility] Last Admin: 09/18/17 09:55 Dose: 1 cap Gabapentin (Neurontin) 300 mg PO DAILY [facility] Last Admin: 09/21/17 10:28 Dose: Not Given Hydralazine HCl (Apresoline) 25 mg PO QID [facility] Last Admin: 09/21/17 13:41 Dose: Not Given Hydromorphone HCl (Dilaudid) 2 mg IVP Q4H PRN PRN Reason: Pain, moderate (4-7) Last Admin: 09/21/17 13:36 Dose: 2 mg Vancomycin/Sodium Chloride (Vancomycin 1 Gm/Ns 200 Ml) 1 gm in 200 mls @ 133.333 mls/hr IVPB MOTUTHSA [facility] Stop: 09/27/17 14:01 Insulin Glargine (Lantus) 25 unit SC [facility] Last Admin: 09/20/17 21:58 Dose: Not Given Insulin Human Regular (Novolin R) 0 unit SC [facility] PRN Reason: Protocol Last Admin: 09/21/17 12:36 Dose: 2 unit Metoclopramide HCl (Reglan) 10 mg IVP Q8 PRN PRN Reason: Nausea/Vomiting Last Admin: 09/21/17 09:17 Dose: 10 mg Nifedipine (Procardia Xl) 30 mg PO DAILY [facility] Last Admin: 09/21/17 10:28 Dose: Not Given Ondansetron HCl (Zofran Inj) 4 mg IVP Q8H PRN PRN Reason: Nausea/Vomiting Last Admin: 09/21/17 00:15 Dose: 4 mg Pantoprazole Sodium (Protonix Inj) 40 mg IVP DAILY [facility] Last Admin: 09/21/17 09:17 Dose: 40 mg Sevelamer Carbonate (Renvela) 0.8 gm PO TIDCC [facility] Last Admin: 09/21/17 12:07 Dose: Not Given Vitamin B Complex/Vit C/Folic Acid (Nephro-Vamshi) 1 tab PO 0800 [facility] Last Admin: 09/21/17 08:50 Dose: Not Given - Labs Labs: 09/21/17 07:14 09/21/17 07:14
--- NOTE | 2017-09-21 17:52 | CP.PCM.PN ---
Subjective - Date & Time of Evaluation Date of Evaluation: 09/21/17 Time of Evaluation: 11:20 - Subjective Subjective: clinically same Objective - Vital Signs/Intake and Output Vital Signs (last 24 hours): Temp Pulse Resp BP Pulse Ox 98.3 F 83 20 184/100 H 99 09/21/17 17:24 09/21/17 17:24 09/21/17 17:24 09/21/17 17:24 09/21/17 17:24 - Medications Medications: Current Medications Calcium Acetate (Phoslo) 667 mg PO TIDCC [facility] Last Admin: 09/21/17 13:05 Dose: Not Given Clonidine HCl (Catapres) 0.3 mg PO BID [facility] [place] Last Admin: 09/21/17 10:27 Dose: Not Given Diphenhydramine HCl (Benadryl) 25 mg IVP Q4 PRN PRN Reason: Itching / Pruritus Last Admin: 09/21/17 13:35 Dose: 25 mg Docusate Sodium (Colace) 100 mg PO TID [facility] [place] Last Admin: 09/21/17 13:41 Dose: Not Given Epoetin James (Procrit) 10,000 unit IV MWF [facility] [place] Last Admin: 09/21/17 13:04 Dose: Not Given Ergocalciferol (Drisdol 50,000 Intl Units Cap) 1 cap PO QWK [facility] [place] Last Admin: 09/18/17 09:55 Dose: 1 cap Gabapentin (Neurontin) 300 mg PO DAILY [facility] [place] Last Admin: 09/21/17 10:28 Dose: Not Given Hydralazine HCl (Apresoline) 25 mg PO QID [facility] [place] Last Admin: 09/21/17 13:41 Dose: Not Given Hydromorphone HCl (Dilaudid) 2 mg IVP Q4H PRN PRN Reason: Pain, moderate (4-7) Last Admin: 09/21/17 13:36 Dose: 2 mg Vancomycin/Sodium Chloride (Vancomycin 1 Gm/Ns 200 Ml) 1 gm in 200 mls @ 133.333 mls/hr IVPB MOTUTHSA [facility] [place] Stop: 09/27/17 14:01 Insulin Glargine (Lantus) 25 unit SC HS [facility] [place] Last Admin: 09/20/17 21:58 Dose: Not Given Insulin Human Regular (Novolin R) 0 unit SC ACHS [facility] [place] PRN Reason: Protocol Last Admin: 09/21/17 12:36 Dose: 2 unit Metoclopramide HCl (Reglan) 10 mg IVP Q8 PRN PRN Reason: Nausea/Vomiting Last Admin: 09/21/17 09:17 Dose: 10 mg Nifedipine (Procardia Xl) 30 mg PO DAILY [facility] [place] Last Admin: 09/21/17 10:28 Dose: Not Given Ondansetron HCl (Zofran Inj) 4 mg IVP Q8H PRN PRN Reason: Nausea/Vomiting Last Admin: 09/21/17 00:15 Dose: 4 mg Pantoprazole Sodium (Protonix Inj) 40 mg IVP DAILY [facility] [place] Last Admin: 09/21/17 09:17 Dose: 40 mg Sevelamer Carbonate (Renvela) 0.8 gm PO TIDCC [facility] [place] Last Admin: 09/21/17 12:07 Dose: Not Given Vitamin B Complex/Vit C/Folic Acid (Nephro-Vamshi) 1 tab PO 0800 [facility] [place] Last Admin: 09/21/17 08:50 Dose: Not Given - Labs Labs: 09/21/17 07:14 09/21/17 07:14 - Constitutional Appears: Well - Head Exam Head Exam: ATRAUMATIC, NORMAL INSPECTION, NORMOCEPHALIC - Eye Exam Eye Exam: EOMI, Normal appearance, PERRL Pupil Exam: NORMAL ACCOMODATION, PERRL - ENT Exam ENT Exam: Mucous Membranes Moist, Normal Exam - Neck Exam Neck Exam: Full ROM, Normal Inspection. absent: Lymphadenopathy - Respiratory Exam Respiratory Exam: Decreased Breath Sounds - Cardiovascular Exam Cardiovascular Exam: REGULAR RHYTHM, +S1, +S2 - GI/Abdominal Exam GI & Abdominal Exam: Soft, Diminished Bowel Sounds - Rectal Exam Rectal Exam: Deferred Assessment and Plan (1) Cellulitis and abscess of foot Status: Acute (2) Chronic pain Status: Acute (3) ESRD (end stage renal disease) on dialysis Status: Acute (4) History of diabetic gastroparesis Status: Acute (5) Accelerated essential hypertension Status: Acute (6) Acute hyperkalemia Status: Acute (7) Acute renal failure Status: Acute (8) Adjustment disorder with anxiety Status: Acute (9) Amenorrhea Status: Acute (10) Anemia Status: Acute (11) Bacteremia Status: Acute (12) Catheter-related bloodstream infection (CRBSI) Status: Acute (13) Cellulitis Status: Acute (14) Chest pain Status: Acute (15) Chronic congestive heart failure Status: Acute (16) Chronic intractable pain Status: Acute (17) Congestive heart failure Status: Acute (18) Constipation Status: Acute (19) DM w/o complication type I Status: Acute (20) DVT (deep venous thrombosis) Status: Acute (21) Dehydration fever Status: Acute (22) Diabetic gastroparesis Status: Acute (23) Dyspnea Status: Acute (24) Epistaxis Status: Acute (25) Esophagitis Status: Acute (26) Fever Status: Acute (27) Fluid overload Status: Acute (28) Foot ulcer Status: Acute (29) Gastric pain Status: Acute (30) 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 Status: Acute (31) Herpes Status: Acute (32) Hyperglycemia Status: Acute (33) Hyperglycemia without ketosis Status: Acute (34) Hyperkalemia Status: Acute (35) Hypertension, malignant Status: Acute (36) Hypertensive crisis without congestive heart failure Status: Acute (37) Hypertensive urgency Status: Acute (38) Hypoglycemia Status: Acute (39) Infection due to central venous catheter exit site Status: Acute (40) Infection, dialysis vascular access Status: Acute (41) Intractable pain Status: Acute (42) Intractable vomiting Status: Acute (43) Intractable vomiting Status: Acute (44) Leg swelling Status: Acute (45) Leukocytosis Status: Acute (46) Leukocytosis Status: Acute (47) Medical assessment Status: Acute (48) Narcotic addiction Status: Acute (49) Nausea Status: Acute (50) Opioid dependence Status: Acute (51) Other complication of arteriovenous dialysis fistula Status: Acute (52) Positive blood culture Status: Acute (53) Prophylactic measure Status: Acute (54) Pulmonary edema Status: Acute (55) Pulmonary edema Status: Acute (56) Renal azotemia Status: Acute (57) Renal failure Status: Acute (58) Renal function tests abnormal Status: Acute (59) Respiratory distress Status: Acute (60) Sensorineural deafness, unilateral Status: Acute (61) Sepsis Status: Acute (62) Shortness of breath Status: Acute (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 Status: Acute (64) Tearfulness Status: Acute (65) Threatening to others Status: Acute (66) Trigger finger, left middle finger Status: Acute (67) UTI (lower urinary tract infection) Status: Acute (68) UTI (urinary tract infection) Status: Acute (69) Uncontrolled diabetes mellitus Status: Acute (70) Uncontrolled hypertension Status: Acute (71) Urinary tract infection symptoms Status: Acute (72) Vaginal discharge Status: Acute (73) Viral bronchitis Status: Acute (74) Vomiting Status: Acute (75) Vomiting bile Status: Acute (76) Vulvovaginal candidiasis Status: Acute (77) Abdominal discomfort, generalized Status: Chronic (78) Abdominal pain Status: Chronic (79) Abdominal pain Status: Chronic (80) Abdominal pain in female Status: Chronic (81) Anemia Status: Chronic (82) Anxiety Status: Chronic (83) CHF (congestive heart failure) Status: Chronic (84) Chronic abdominal pain Status: Chronic (85) Chronic pruritus Status: Chronic (86) Chronic, continuous use of opioids Status: Chronic (87) Constipation Status: Chronic (88) Dependence on renal dialysis Status: Chronic (89) Dependency on pain medication Status: Chronic (90) Diabetes Status: Chronic (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, managed as type 2 Status: Chronic (92) Drug-seeking behavior Status: Chronic (93) End stage renal disease Status: Chronic (94) End stage renal disease on dialysis Status: Chronic (95) Gastroparesis Status: Chronic (96) Hemodialysis patient Status: Chronic (97) History of osteomyelitis Status: Chronic (98) Hypertension Status: Chronic (99) Hypertension associated with diabetes Status: Chronic (100) Intractable abdominal pain Status: Chronic (101) Intractable nausea and vomiting Status: Chronic (102) Pain Status: Chronic (103) Skin lesions, generalized Status: Chronic (104) Type 1 diabetes Status: Chronic - Assessment and Plan (Free Text) Plan: The patient at length once again today it is I spoke to the patient's multiple times in the past 1 in the presence of the mother Patient wants a medications all the time and physically screaming and complaining of pain pain pain spoke to the GI in the past and also patient discouraged to use diluted patient only wants a diluted Patient does not want to go home Patient has one or the other complaints Patient was stable and only complaining of the the foot infection for which patient was seen by dental record and was asked to go home 3 days ago patient came up and said patient needs to want to talk to Dr. Gil next day patient started vomiting which patient was stable before Patient is been told multiple times that she needs to go for the detox patient is keep on refusing it Patient is refusing to go to the home Spoke to the patient at length in the presence of the insurance company insurance director and also in the presence of patient and the insurance insurance was advised to get the pain management consultation insurance tried to find a doctor and patient given an appointment for the October 24 for pain management patient advised to take Reglan and nonnarcotic pain medicine patient refuses to leave floor nurses are aware video poker floorman is aware Continue vancomycin continue Reglan continue other medications as ordered Blood pressure medication medication and management as per renal Continue hemodialysis Patient is again verbally abusive as started screaming when i asked to taper medicine and it was done 2 days ago and pt refused to take 1mg as tried and started threatening about the lawsuits and all other things patient is been advised that she needs to stop her this verbally abusive behavior as well as drug-seeking behavior and need to detox if patient agrees will advise the patient to go to the detox continue same Pain meds
[2017-09-21] MEDS: (Lantus) Insulin Glargine, Recombinant SC SCH (21:36)
[2017-09-22] MEDS: DiphenhydrAMINE 50 mg/ml Inj IVP PRN ×6 (01:27→21:32)
[2017-09-22] MEDS: HYDROmorphone 0.5 mg/0.5 ml ISec IVP PRN (01:27)
[2017-09-22 07:36] LABS: BASO # 0.1 K/uL (0.0-0.2); BASO % 0.8 % (0.0-2.0); EOS # 0.5 K/uL (0.0-0.7); EOS % 7.4 % (0.0-4.0); HEMOGLOBIN 10.4 g/dL (11.0-16.0); LYMPH # 1.8 K/uL (1.0-4.3); LYMPH % 29.5 % (20.0-40.0); MEAN CELL VOLUME 95.7 fL (81.0-99.0); MEAN CORPUSCULAR HEMOGLOBIN 31.6 pg (27.0-31.0); MEAN PLATELET VOLUME 8.1 fL (7.2-11.7); MONO # 0.6 K/uL (0.0-0.8); MONO % 9.3 % (0.0-10.0); NEUT # 3.3 K/uL (1.8-7.0); NRBC % 0.1 % (0.0-2.0); RBC 3.28 Mil/uL (3.80-5.20); RED CELL DISTRIBUTION WIDTH 17.4 % (11.5-14.5); WHITE BLOOD COUNT 6.2 K/uL (4.8-10.8)
[2017-09-22] MEDS: (Novolin R) Insulin Human Regular 100 units/ml vial SC SCH ×4 (08:05→21:52)
[2017-09-22 08:45] LABS: ALB/GLOB RATIO 1.1 (1.0-2.1); ALBUMIN 4.1 g/dL (3.5-5.0); CALCIUM 6.9 mg/dl (8.6-10.4)
[2017-09-22] MEDS: Multivitamin Vitamin B Complex (Nephro-Vite) Tab PO SCH (09:23)
[2017-09-22] MEDS: Sevelamer Carb 0.8 gm/Packet PO SCH ×3 (09:24→18:38)
[2017-09-22] MEDS: NIFEdipine 30 mg ER Tab PO SCH (10:28)
--- NOTE | 2017-09-22 10:56 | CP.PCM.PN ---
Subjective - Date & Time of Evaluation Date of Evaluation: 09/22/17 Time of Evaluation: 10:00 - Subjective Subjective: SEEN ON RENAL F/U SEEN ON HD FEELS BETTER ALL PREVIOUS EMR REVIEWED Objective - Vital Signs/Intake and Output Vital Signs (last 24 hours): Temp Pulse Resp BP Pulse Ox 97.4 F L 102 H 20 147/90 100 09/22/17 00:00 09/22/17 00:00 09/22/17 00:00 09/22/17 00:00 09/22/17 00:00 - Medications Medications: Current Medications Calcium Acetate (Phoslo) 667 mg PO TIDCC [facility] Last Admin: 09/22/17 09:24 Dose: Not Given Clonidine HCl (Catapres) 0.3 mg PO BID [facility] Last Admin: 09/22/17 10:28 Dose: Not Given Diphenhydramine HCl (Benadryl) 25 mg IVP Q4 PRN PRN Reason: Itching / Pruritus Last Admin: 09/22/17 09:17 Dose: 25 mg Docusate Sodium (Colace) 100 mg PO TID [facility] Last Admin: 09/22/17 10:28 Dose: Not Given Epoetin James (Procrit) 10,000 unit IV MWF [facility] Last Admin: 09/21/17 13:04 Dose: Not Given Ergocalciferol (Drisdol 50,000 Intl Units Cap) 1 cap PO QWK [facility] Last Admin: 09/18/17 09:55 Dose: 1 cap Gabapentin (Neurontin) 300 mg PO DAILY [facility] Last Admin: 09/22/17 10:28 Dose: Not Given Hydralazine HCl (Apresoline) 25 mg PO QID [facility] Last Admin: 09/22/17 10:28 Dose: Not Given Hydromorphone HCl (Dilaudid) 2 mg IVP Q4H PRN PRN Reason: Pain, moderate (4-7) Last Admin: 09/22/17 09:18 Dose: 2 mg Vancomycin/Sodium Chloride (Vancomycin 1 Gm/Ns 200 Ml) 1 gm in 200 mls @ 133.333 mls/hr IVPB MOTUTHSA [facility] Stop: 09/27/17 14:01 Insulin Glargine (Lantus) 25 unit SC HS [facility] Last Admin: 09/21/17 21:36 Dose: Not Given Insulin Human Regular (Novolin R) 0 unit SC ACHS [facility] PRN Reason: Protocol Last Admin: 09/22/17 08:05 Dose: 1 unit Metoclopramide HCl (Reglan) 10 mg IVP Q8 PRN PRN Reason: Nausea/Vomiting Last Admin: 09/22/17 05:31 Dose: 10 mg Nifedipine (Procardia Xl) 30 mg PO DAILY [facility] Last Admin: 09/22/17 10:28 Dose: Not Given Ondansetron HCl (Zofran Inj) 4 mg IVP Q8H PRN PRN Reason: Nausea/Vomiting Last Admin: 09/22/17 09:17 Dose: 4 mg Pantoprazole Sodium (Protonix Inj) 40 mg IVP DAILY [facility] Last Admin: 09/22/17 10:28 Dose: Not Given Sevelamer Carbonate (Renvela) 0.8 gm PO TIDCC [facility] Last Admin: 09/22/17 09:24 Dose: Not Given Vitamin B Complex/Vit C/Folic Acid (Nephro-Vamshi) 1 tab PO 0800 [facility] Last Admin: 09/22/17 09:23 Dose: Not Given - Labs Labs: 09/22/17 07:10 09/22/17 07:10 Assessment and Plan - Assessment and Plan (Free Text) Assessment: ESRD ON HD M W F AND SAT ANEMIA OF CKD .. H/H STABLE MMP P : C/O CURRENT CARE C/O PRESENT MANAGEMENT C/O SAME MEDS
--- NOTE | 2017-09-22 11:24 | CP.PCM.PN ---
Subjective - Date & Time of Evaluation Date of Evaluation: 09/22/17 Time of Evaluation: 11:24 - Subjective Subjective: Podiatry Progress Note- Dr. Tilley: 31 yo diabetic female seen and evaluated at bedside for bilateral 3rd toe pain/ swelling. Patient is seen sitting at bedside and in NAD. Patient denies f/n/v/c/ sob/cp/weakness or calf pain at this time. Patient denies acute overnight events. Patient has no other pedal complaints at this time Objective - Vital Signs/Intake and Output Vital Signs (last 24 hours): Temp Pulse Resp BP Pulse Ox 97.4 F L 102 H 20 147/90 100 09/22/17 00:00 09/22/17 00:00 09/22/17 00:00 09/22/17 00:00 09/22/17 00:00 - Medications Medications: Current Medications Calcium Acetate (Phoslo) 667 mg PO TIDCC [facility] Last Admin: 09/22/17 09:24 Dose: Not Given Clonidine HCl (Catapres) 0.3 mg PO BID [facility] Last Admin: 09/22/17 10:28 Dose: Not Given Diphenhydramine HCl (Benadryl) 25 mg IVP Q4 PRN PRN Reason: Itching / Pruritus Last Admin: 09/22/17 09:17 Dose: 25 mg Docusate Sodium (Colace) 100 mg PO TID [facility] Last Admin: 09/22/17 10:28 Dose: Not Given Epoetin James (Procrit) 10,000 unit IV MWF [facility] Last Admin: 09/21/17 13:04 Dose: Not Given Ergocalciferol (Drisdol 50,000 Intl Units Cap) 1 cap PO QWK [facility] Last Admin: 09/18/17 09:55 Dose: 1 cap Gabapentin (Neurontin) 300 mg PO DAILY [facility] Last Admin: 09/22/17 10:28 Dose: Not Given Hydralazine HCl (Apresoline) 25 mg PO QID [facility] Last Admin: 09/22/17 10:28 Dose: Not Given Hydromorphone HCl (Dilaudid) 2 mg IVP Q4H PRN PRN Reason: Pain, moderate (4-7) Last Admin: 09/22/17 09:18 Dose: 2 mg Vancomycin/Sodium Chloride (Vancomycin 1 Gm/Ns 200 Ml) 1 gm in 200 mls @ 133.333 mls/hr IVPB MOTUTHSA [facility] Stop: 09/27/17 14:01 Insulin Glargine (Lantus) 25 unit SC HS [facility] Last Admin: 09/21/17 21:36 Dose: Not Given Insulin Human Regular (Novolin R) 0 unit SC ACHS [facility] PRN Reason: Protocol Last Admin: 09/22/17 08:05 Dose: 1 unit Metoclopramide HCl (Reglan) 10 mg IVP Q8 PRN PRN Reason: Nausea/Vomiting Last Admin: 09/22/17 05:31 Dose: 10 mg Nifedipine (Procardia Xl) 30 mg PO DAILY [facility] Last Admin: 09/22/17 10:28 Dose: Not Given Ondansetron HCl (Zofran Inj) 4 mg IVP Q8H PRN PRN Reason: Nausea/Vomiting Last Admin: 09/22/17 09:17 Dose: 4 mg Pantoprazole Sodium (Protonix Inj) 40 mg IVP DAILY [facility] Last Admin: 09/22/17 10:28 Dose: Not Given Sevelamer Carbonate (Renvela) 0.8 gm PO TIDCC [facility] Last Admin: 09/22/17 09:24 Dose: Not Given Vitamin B Complex/Vit C/Folic Acid (Nephro-Vamshi) 1 tab PO 0800 [facility] Last Admin: 09/22/17 09:23 Dose: Not Given - Labs Labs: 09/22/17 07:10 09/22/17 07:10 - Constitutional Appears: Well, Non-toxic, No Acute Distress - Extremities Exam Additional comments: B/L LE exam: VASC- pedal pulses fully palpable 2/4 B/L. CFT < 3 sec to all digits x10. 3rd digit B/L appears grossly edematous circumferentially NEURO- gross and protective pedal sensation is intact B/L DERM- toenails 1-2 on B/L feet are thickened and discolored, hypergranulation tissue is noted to nail bed of 3rd digits B/L with no evidence of drainage, neg malodor, neg erythema (distal aspect of both toes appear to have darkened skin changes), well healed cicatrix is noted to 4th interspace of right foot ( previous ulceration) ORTHO -tenderness to palp of B/L 3rd toe and also to palpation of lateral nail border left hallux - Neurological Exam Neurological Exam: Alert, Awake, Oriented x3 - Psychiatric Exam Psychiatric exam: Normal Affect, Normal Mood Assessment and Plan - Assessment and Plan (Free Text) Assessment: 31 yo diabetic female pt w/ painful/edematous 3rd digit bilaterally feet possibly secondary to osteomyelitis Plan: Patient seen and evaluated at bedside Discussed plan in detail with attending Dr. Tilley Chart and labs reviewed: afebrile, no leukocytosis Continue IV abx per ID. -Recommending 6 weeks of IV abx, Vancomycin 1gm. Discussed with pt potential indicated treatment option of digital amputations vs custodial antibiotics, including risks, benefits, complications and potential alternatives. Per Dr. Tilley no planned amputations at this time. Pt to undergo termite treater helper IV antibiotic therapy on outpatient basis. Pt is stable for discharge from podiatric standpoint.
[2017-09-22] MEDS ORDERED: Vancomycin 1 gm/NS 200 ml 1 GM/200 ML BAG IVPB SCH (14:00)
--- NOTE | 2017-09-22 14:42 | RAD ---
HISTORY: nausea/vomiting r/o obstruction COMPARISON: Abdominal radiograph performed 07/25/16 FINDINGS: BOWEL: Nonobstructive bowel gas pattern. Moderate constipation. No definite free air. BONES: None available. OTHER FINDINGS: IVC filter, T12-L1 level. IMPRESSION: IVC filter. Moderate constipation.
--- NOTE | 2017-09-22 16:05 | CP.PCM.PN ---
Subjective - Date & Time of Evaluation Date of Evaluation: 09/22/17 Time of Evaluation: 09:00 - Subjective Subjective: pt refused hd although dr. del castillo note seen Objective - Vital Signs/Intake and Output Vital Signs (last 24 hours): Temp Pulse Resp BP Pulse Ox 97.4 F L 102 H 20 147/90 100 09/22/17 00:00 09/22/17 00:00 09/22/17 00:00 09/22/17 00:00 09/22/17 00:00 - Medications Medications: Current Medications Calcium Acetate (Phoslo) 667 mg PO TIDCC [facility] Last Admin: 09/22/17 12:38 Dose: Not Given Clonidine HCl (Catapres) 0.3 mg PO BID [facility] Last Admin: 09/22/17 10:28 Dose: Not Given Diphenhydramine HCl (Benadryl) 25 mg IVP Q4 PRN PRN Reason: Itching / Pruritus Last Admin: 09/22/17 13:26 Dose: 25 mg Docusate Sodium (Colace) 100 mg PO TID [facility] Last Admin: 09/22/17 14:56 Dose: Not Given Epoetin James (Procrit) 10,000 unit IV MWF [facility] Last Admin: 09/21/17 13:04 Dose: Not Given Ergocalciferol (Drisdol 50,000 Intl Units Cap) 1 cap PO QWK [facility] Last Admin: 09/18/17 09:55 Dose: 1 cap Gabapentin (Neurontin) 300 mg PO DAILY [facility] Last Admin: 09/22/17 10:28 Dose: Not Given Hydralazine HCl (Apresoline) 25 mg PO QID [facility] Last Admin: 09/22/17 14:57 Dose: Not Given Hydromorphone HCl (Dilaudid) 2 mg IVP Q4H PRN PRN Reason: Pain, moderate (4-7) Last Admin: 09/22/17 13:26 Dose: 2 mg Vancomycin/Sodium Chloride (Vancomycin 1 Gm/Ns 200 Ml) 1 gm in 200 mls @ 133.333 mls/hr IVPB MOTUTHSA [facility] Stop: 09/27/17 14:01 Last Admin: 09/22/17 14:56 Dose: Not Given Insulin Glargine (Lantus) 25 unit SC HS [facility] Last Admin: 09/21/17 21:36 Dose: Not Given Insulin Human Regular (Novolin R) 0 unit SC ACHS [facility] PRN Reason: Protocol Last Admin: 09/22/17 12:37 Dose: Not Given Metoclopramide HCl (Reglan) 10 mg IVP Q8 PRN PRN Reason: Nausea/Vomiting Last Admin: 09/22/17 05:31 Dose: 10 mg Nifedipine (Procardia Xl) 30 mg PO DAILY [facility] Last Admin: 09/22/17 10:28 Dose: Not Given Ondansetron HCl (Zofran Inj) 4 mg IVP Q8H PRN PRN Reason: Nausea/Vomiting Last Admin: 09/22/17 09:17 Dose: 4 mg Pantoprazole Sodium (Protonix Inj) 40 mg IVP DAILY [facility] Last Admin: 09/22/17 10:28 Dose: Not Given Sevelamer Carbonate (Renvela) 0.8 gm PO TIDCC [facility] Last Admin: 09/22/17 12:38 Dose: Not Given Vitamin B Complex/Vit C/Folic Acid (Nephro-Vamshi) 1 tab PO 0800 [facility] Last Admin: 09/22/17 09:23 Dose: Not Given - Labs Labs: 09/22/17 07:10 09/22/17 07:10 - Constitutional Appears: Well - Head Exam Head Exam: ATRAUMATIC, NORMAL INSPECTION, NORMOCEPHALIC - Eye Exam Eye Exam: EOMI, Normal appearance, PERRL Pupil Exam: NORMAL ACCOMODATION, PERRL - ENT Exam ENT Exam: Mucous Membranes Moist, Normal Exam - Neck Exam Neck Exam: Full ROM, Normal Inspection. absent: Lymphadenopathy - Respiratory Exam Respiratory Exam: Decreased Breath Sounds - Cardiovascular Exam Cardiovascular Exam: REGULAR RHYTHM, +S1, +S2 - GI/Abdominal Exam GI & Abdominal Exam: Soft, Diminished Bowel Sounds - Rectal Exam Rectal Exam: Deferred Assessment and Plan (1) Cellulitis and abscess of foot Status: Acute (2) Chronic pain Status: Acute (3) ESRD (end stage renal disease) on dialysis Status: Acute (4) History of diabetic gastroparesis Status: Acute (5) Accelerated essential hypertension Status: Acute (6) Acute hyperkalemia Status: Acute (7) Acute renal failure Status: Acute (8) Adjustment disorder with anxiety Status: Acute (9) Amenorrhea Status: Acute (10) Anemia Status: Acute (11) Bacteremia Status: Acute (12) Catheter-related bloodstream infection (CRBSI) Status: Acute (13) Cellulitis Status: Acute (14) Chest pain Status: Acute (15) Chronic congestive heart failure Status: Acute (16) Chronic intractable pain Status: Acute (17) Congestive heart failure Status: Acute (18) Constipation Status: Acute (19) DM w/o complication type I Status: Acute (20) DVT (deep venous thrombosis) Status: Acute (21) Dehydration fever Status: Acute (22) Diabetic gastroparesis Status: Acute (23) Dyspnea Status: Acute (24) Epistaxis Status: Acute (25) Esophagitis Status: Acute (26) Fever Status: Acute (27) Fluid overload Status: Acute (28) Foot ulcer Status: Acute (29) Gastric pain Status: Acute (30) 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 Status: Acute (31) Herpes Status: Acute (32) Hyperglycemia Status: Acute (33) Hyperglycemia without ketosis Status: Acute (34) Hyperkalemia Status: Acute (35) Hypertension, malignant Status: Acute (36) Hypertensive crisis without congestive heart failure Status: Acute (37) Hypertensive urgency Status: Acute (38) Hypoglycemia Status: Acute (39) Infection due to central venous catheter exit site Status: Acute (40) Infection, dialysis vascular access Status: Acute (41) Intractable pain Status: Acute (42) Intractable vomiting Status: Acute (43) Intractable vomiting Status: Acute (44) Leg swelling Status: Acute (45) Leukocytosis Status: Acute (46) Leukocytosis Status: Acute (47) Medical assessment Status: Acute (48) Narcotic addiction Status: Acute (49) Nausea Status: Acute (50) Opioid dependence Status: Acute (51) Other complication of arteriovenous dialysis fistula Status: Acute (52) Positive blood culture Status: Acute (53) Prophylactic measure Status: Acute (54) Pulmonary edema Status: Acute (55) Pulmonary edema Status: Acute (56) Renal azotemia Status: Acute (57) Renal failure Status: Acute (58) Renal function tests abnormal Status: Acute (59) Respiratory distress Status: Acute (60) Sensorineural deafness, unilateral Status: Acute (61) Sepsis Status: Acute (62) Shortness of breath Status: Acute (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 Status: Acute (64) Tearfulness Status: Acute (65) Threatening to others Status: Acute (66) Trigger finger, left middle finger Status: Acute (67) UTI (lower urinary tract infection) Status: Acute (68) UTI (urinary tract infection) Status: Acute (69) Uncontrolled diabetes mellitus Status: Acute (70) Uncontrolled hypertension Status: Acute (71) Urinary tract infection symptoms Status: Acute (72) Vaginal discharge Status: Acute (73) Viral bronchitis Status: Acute (74) Vomiting Status: Acute (75) Vomiting bile Status: Acute (76) Vulvovaginal candidiasis Status: Acute (77) Abdominal discomfort, generalized Status: Chronic (78) Abdominal pain Status: Chronic (79) Abdominal pain Status: Chronic (80) Abdominal pain in female Status: Chronic (81) Anemia Status: Chronic (82) Anxiety Status: Chronic (83) CHF (congestive heart failure) Status: Chronic (84) Chronic abdominal pain Status: Chronic (85) Chronic pruritus Status: Chronic (86) Chronic, continuous use of opioids Status: Chronic (87) Constipation Status: Chronic (88) Dependence on renal dialysis Status: Chronic (89) Dependency on pain medication Status: Chronic (90) Diabetes Status: Chronic (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, managed as type 2 Status: Chronic (92) Drug-seeking behavior Status: Chronic (93) End stage renal disease Status: Chronic (94) End stage renal disease on dialysis Status: Chronic (95) Gastroparesis Status: Chronic (96) Hemodialysis patient Status: Chronic (97) History of osteomyelitis Status: Chronic (98) Hypertension Status: Chronic (99) Hypertension associated with diabetes Status: Chronic (100) Intractable abdominal pain Status: Chronic (101) Intractable nausea and vomiting Status: Chronic (102) Pain Status: Chronic (103) Skin lesions, generalized Status: Chronic (104) Type 1 diabetes Status: Chronic - Assessment and Plan (Free Text) Plan: pt after been told about discharge now has more cmplaints and nore vomitting thean ever before pt says she wnt go for hd unless she gets more pain med and pt has advsied that she doesnot need more mede if need arises will speak to gi no need to get more med pt been told mulitple times to go to [facility] for second opinion for diabetic gastropaty and possible iv erythromycin to get it from [facility] for second opionio but pt doesnot coply with request.. pt is cryng and wants more medication for sevre pain refuses to seek dtox help from ppsych will speak to her mother again will give 1mg dialudid now pt adv to follow up as out pt with all consultants as pt is non compliance..
[2017-09-22] MEDS ORDERED: Epoetin Alfa 10,000 unit/ml Dialysis IV ONE (17:00)
[2017-09-22] MEDS: (Lantus) Insulin Glargine, Recombinant SC SCH (21:52)
[2017-09-23] MEDS: DiphenhydrAMINE 50 mg/ml Inj IVP PRN ×3 (01:32→09:22)
[2017-09-23 02:12] VITALS: BP 150/80; PULSE 100; RESP 20; TEMP 98.6; O2SAT 99
[2017-09-23] MEDS: Multivitamin Vitamin B Complex (Nephro-Vite) Tab PO SCH (08:24)
[2017-09-23] MEDS: Sevelamer Carb 0.8 gm/Packet PO SCH (08:25)
[2017-09-23] MEDS: (Novolin R) Insulin Human Regular 100 units/ml vial SC SCH (08:47)
[2017-09-23] MEDS: NIFEdipine 30 mg ER Tab PO SCH (09:30)
== END 2017-09-23 11:08 | disposition home or self-care (01) | DRG 531 ==
LOC: C.ER 15:48 → C.9E 18:42 → C.5S 22:59
PROVIDERS: ADMIT Internal Medicine Nephrology; ATTEND Internal Medicine Nephrology
PROC: 5A1D70Z Performance of Urinary Filtration, Intermittent, Less than 6 Hours Per Day (ICD-10-PCS; 2017-09-06)
PROC: 05763ZZ Dilation of Left Subclavian Vein, Percutaneous Approach (ICD-10-PCS; principal; 2017-09-07)
PROC: B517YZZ Fluoroscopy of Left Subclavian Vein using Other Contrast (ICD-10-PCS; 2017-09-07)
DX: E11.43 Type 2 diabetes mellitus with diabetic autonomic (poly)neuropathy (principal); N17.9 Acute kidney failure, unspecified; I13.2 Hypertensive heart and chronic kidney disease with heart failure and with stage 5 chronic kidney disease, or end stage renal disease; E11.22 Type 2 diabetes mellitus with diabetic chronic kidney disease; N18.6 End stage renal disease; D57.1 Sickle-cell disease without crisis; E11.65 Type 2 diabetes mellitus with hyperglycemia; K75.9 Inflammatory liver disease, unspecified; M86.8X8 Other osteomyelitis, other site; N39.0 Urinary tract infection, site not specified; I50.9 Heart failure, unspecified; E87.5 Hyperkalemia; E86.0 Dehydration; L97.509 Non-pressure chronic ulcer of other part of unspecified foot with unspecified severity; T80.211A Bloodstream infection due to central venous catheter, initial encounter; E11.69 Type 2 diabetes mellitus with other specified complication; K31.84 Gastroparesis; Z99.2 Dependence on renal dialysis; F41.9 Anxiety disorder, unspecified; E78.00 Pure hypercholesterolemia, unspecified; E03.9 Hypothyroidism, unspecified; G47.30 Sleep apnea, unspecified; Z95.5 Presence of coronary angioplasty implant and graft; Z90.49 Acquired absence of other specified parts of digestive tract; G89.29 Other chronic pain; D63.1 Anemia in chronic kidney disease; Z79.4 Long term (current) use of insulin; E55.9 Vitamin D deficiency, unspecified; I87.1 Compression of vein; L03.032 Cellulitis of left toe; L03.031 Cellulitis of right toe; F43.22 Adjustment disorder with anxiety; Y84.8 Other medical procedures as the cause of abnormal reaction of the patient, or of later complication, without mention of misadventure at the time of the procedure

== ENCOUNTER 2017-09-27 17:06 | Emergency (ER) | payer MEDICAID ==
[2017-09-27 17:06] VITALS: BMI 27.3
[2017-09-27 17:54] VITALS: TEMP 98.4
[2017-09-27 19:20] LABS: BASO # 0.1 K/uL (0.0-0.2); BASO % 1.2 % (0.0-2.0); EOS # 0.4 K/uL (0.0-0.7); EOS % 5.2 % (0.0-4.0); HEMOGLOBIN 10.7 g/dL (11.0-16.0); LYMPH # 1.1 K/uL (1.0-4.3); MEAN CELL VOLUME 97.4 fL (81.0-99.0); MEAN CORPUSCULAR HEMOGLOBIN 31.7 pg (27.0-31.0); MEAN CORPUSCULAR HGB CONC 32.5 g/dL (33.0-37.0); MEAN PLATELET VOLUME 8.1 fL (7.2-11.7); MONO # 0.6 K/uL (0.0-0.8); NEUT # 5.6 K/uL (1.8-7.0); NEUT % 71.6 % (50.0-75.0); NRBC % 0.2 % (0.0-2.0); RBC 3.36 Mil/uL (3.80-5.20); RED CELL DISTRIBUTION WIDTH 17.4 % (11.5-14.5); WHITE BLOOD COUNT 7.8 K/uL (4.8-10.8)
[2017-09-27 19:39] LABS: ALB/GLOB RATIO 1.1 (1.0-2.1); ALBUMIN 3.5 g/dL (3.5-5.0); CALCIUM 6.8 mg/dl (8.6-10.4)
[2017-09-27 19:45] LABS: TROPONIN I 0.042 ng/mL (0.00-0.120)
[2017-09-27 21:25] VITALS: BP 187/71; PULSE 71; RESP 18; O2SAT 98
--- NOTE | 2017-09-27 22:48 | C.PDOC ---
History Of Present Illness 31 year old female presents to the ED c/o intermittent CP, and elevated blood pressure that started today. Patient denies any headaches, fever, chills, nausea , vomit, diarrhea, cough, abdominal pain. While in the ED patient states she feel no pain and has no complaints at this time. Chief Complaint (Nursing): Chest Pain History Per: Patient History/Exam Limitations: no limitations Onset/Duration Of Symptoms: Hrs Current Symptoms Are (Timing): Gone Quality: "Pain" Modifying Factors: None Exacerbating Factors: None Alleviating Factors: None Recent travel outside of the [place]: No Additional History Per: Patient Past Medical History Reviewed: Historical Data, Nursing Documentation, Vital Signs Vital Signs: Last Vital Signs Temp 98.4 F 09/27/17 21:25 Pulse 71 09/27/17 21:25 Resp 18 09/27/17 21:25 BP 187/71 H 09/27/17 21:25 Pulse Ox 98 09/27/17 22:51 - Medical History PMH: Anemia, Anxiety, Asthma, Bronchitis, CHF, Diabetes, Fractures (Sep 2012 L foot), Gastritis, Gastrointestinal Ulcer (gastroparesis), Gall Bladder Disease ( gallbladder removed), Hepatitis, HTN, Hypercholesterolemia, Hyperthyroidism, Hypothyroidism, Kidney Stones, Pancreatitis (chronic), Peripheral Edema, Pneumonia, End Stage Renal Disease, Chronic Kidney Disease, Seizures, Sleep Apnea, Chronic Pain Surgical History: Cholecystectomy, Coronary Stent - [facility] Procedures (09/03/17) ASSISTANCE WITH RESPIRATORY VENTILATION, 24-96 HRS, CPAP (11/27/16) CAUTERY TO STOP EPISTAX (03/22/14) CENTRAL VENOUS CATHETER PLACEMENT WITH GUIDANCE (11/06/14) DIALYSIS ARTERIOVENOSTOM (01/10/14) DILATION OF LEFT SUBCLAVIAN VEIN, PERCUTANEOUS APPROACH (09/03/17) DRAINAGE OF RIGHT FOOT SKIN, EXTERNAL APPROACH (07/17/16) DRAINAGE OF RIGHT LOWER ARM SKIN, EXTERNAL APPROACH (05/25/16) ESOPHAGOGASTRODUODENOSCOPY [EGD] W/CLOSED BIOPSY (03/03/14) EXCISION OF LEFT TOE PHALANX, OPEN APPROACH (07/12/17) EXCISION OF STOMACH, ENDO, DIAGN (05/09/16) EXTIRPATE MATTER FROM R LOW ARM SUBCU/FASCIA, PERC (05/25/16) EXTRACTION OF RIGHT FOOT SKIN, EXTERNAL APPROACH (05/25/16) EXTRACTION OF TOE NAIL, EXTERNAL APPROACH (07/12/17) FLEXIBLE SIGMOIDOSCOPY (10/26/14) FLUOROSCOPY OF LEFT SUBCLAVIAN VEIN USING OTHER CONTRAST (09/03/17) FLUOROSCOPY OF R JUGULAR VEIN USING L OSM CONTRAST, GUIDANCE (12/13/15) FLUOROSCOPY OF RIGHT SUBCLAVIAN VEIN, GUIDANCE (08/07/16) HEMODIALYSIS (04/05/15) INJECT INSULIN (12/23/12) INJECT/INFUSE ELECTROLYT (12/23/12) INJECT/INFUSE NEC (01/17/15) INSERT INFUSION DEV IN R INT JUGULAR VEIN, PERC (02/23/16) INSERT VAD RESERVOIR IN CHEST SUBCU/FASCIA, OPEN (08/19/17) INSERTION OF INFUSION DEV INTO R BASILIC VEIN, PERC APPROACH (04/18/16) INSERTION OF INFUSION DEV INTO R BRACH VEIN, PERC APPROACH (02/19/17) INSERTION OF INFUSION DEV INTO R SUBCLAV VEIN, PERC APPROACH (08/29/16) INSERTION OF INFUSION DEV INTO SUP VENA CAVA, PERC APPROACH (08/19/17) INSERTION OF INFUSION DEVICE INTO R ATRIUM, PERC APPROACH (12/13/15) INSERTION OF VAD INTO CHEST SUBCU/FASCIA, OPEN APPROACH (12/13/15) MEASURE OF CARDIAC SAMPL & PRESSURE, L HEART, PERC APPROACH (10/09/16) OTHER ENDOSCOPY OF SM INTEST (08/25/14) PACKED CELL TRANSFUSION (10/26/14) PERFORMANCE OF URINARY FILTRATION, MULTIPLE (03/19/17) PERFORMANCE OF URINARY FILTRATION, SINGLE (11/27/16) PLAIN RADIOGRAPHY OF LEFT HEART USING OTHER CONTRAST (10/09/16) PLAIN RADIOGRAPHY OF MULT COR ART USING OTH CONTRAST (10/09/16) PLICATION OF VENA CAVA (03/22/14) POST NASAL PAC FOR EPIST (03/22/14) REMOVAL OF VAD FROM TRUNK SUBCU/FASCIA, OPEN APPROACH (02/23/16) RESECTION OF TOE NAIL, EXTERNAL APPROACH (08/19/17) MELVIN [facility]NY DIALYSIS SHUNT (03/03/14) THERAPEUTIC ERYTHROCYTAPHERESIS (10/26/14) TRANSFUSE NONAUT RED BLOOD CELLS IN PERIPH VEIN, PERC (02/19/17) ULTRASONOGRAPHY OF RIGHT AND LEFT HEART, TRANSESOPHAGEAL (02/19/17) ULTRASONOGRAPHY OF RIGHT SUBCLAVIAN VEIN, GUIDANCE (08/29/16) ULTRASONOGRAPHY OF RIGHT UPPER EXTREMITY VEINS, GUIDANCE (02/19/17) VACCINATION NEC (10/26/14) VENOUS CATHETERIZATION FOR RENAL DIALYSIS (03/03/14) Family History: States: Unknown Family Hx - Social History Hx Tobacco Use: No Hx Alcohol Use: No Hx Substance Use: No - Immunization History Hx Tetanus Toxoid Vaccination: No Hx Influenza Vaccination: Yes (05/2017) Hx Pneumococcal Vaccination: Yes (2015) Review Of Systems Constitutional: Negative for: Fever, Chills Cardiovascular: Positive for: Chest Pain Respiratory: Negative for: Cough, Shortness of Breath Gastrointestinal: Negative for: Nausea, Vomiting, Abdominal Pain Skin: Negative for: Rash Neurological: Negative for: Weakness, Numbness, Headache, Dizziness Physical Exam - Physical Exam Appears: Non-toxic, No Acute Distress Skin: Normal Color, Warm, Dry Head: Atraumatic, Normacephalic Eye(s): bilateral: Normal Inspection Nose: No Discharge, No Deformity Oral Mucosa: Moist Neck: Normal ROM, Supple Chest: Symmetrical, Other (Right subclavian port) Cardiovascular: Rhythm Regular, No Murmur Respiratory: Normal Breath Sounds, No Rales, No Rhonchi, No Wheezing Gastrointestinal/Abdominal: Soft, No Tenderness, No Guarding, No Rebound Extremity: Normal ROM, No Pedal Edema, No Deformity, No Swelling Neurological/Psych: Oriented x3, Normal Speech, Normal Cognition Gait: Steady ED Course And Treatment - Laboratory Results Result Diagrams: 09/27/17 19:09 09/27/17 19:09 ECG: Interpreted By Me, Viewed By Me ECG Rhythm: Sinus Rhythm ECG Interpretation: Normal Rate From EC O2 Sat by Pulse Oximetry: 98 (On RA) Pulse Ox Interpretation: Normal Medical Decision Making Medical Decision Making: Impression : chest pain Plan: * EKG * Labs * CXR * UA spoke with Dr. Anshul Sexton who is her PMD who states that patient can be d/c. Patient will follow up with his office. Disposition - Disposition Referrals: Kim Sexton MD [Staff Provider] - Disposition: HOME/ ROUTINE Disposition Time: 20:00 Condition: IMPROVED Additional Instructions: Thank you for letting us take care of you today. The emergency medical care you received today was directed at your acute symptoms. If you were prescribed any medication, please fill it and take as directed. It may take several days for your symptoms to resolve. Return to the Emergency Department if your symptoms worsen, do not improve, or if you have any other problems. Please contact your doctor or call one of the physicians/clinics you have been referred to that are listed on the Patient Visit Information form that is included in your discharge packet. Bring any paperwork you were given at discharge with you along with any medications you are taking to your follow up visit. Our treatment cannot replace ongoing medical care by a primary care provider (PCP) outside of the emergency department. Thank you for allowing the [facility] team to be part of your care today. Follow up with your doctor in 2-3 days for re-evaluation and further management. Instructions: Chest Pain That Is Not Caused by the Heart (DC) Forms: [employer] (Lithuanian) - Clinical Impression Clinical Impression: Hypertension - Scribe Statement The provider has reviewed the documentation as recorded by the Scribe Benito Ruiz All medical record entries made by the Scribe were at my direction and personally dictated by me. I have reviewed the chart and agree that the record accurately reflects my personal performance of the history, physical exam, medical decision making, and the department course for this patient. I have also personally directed, reviewed, and agree with the discharge instructions and disposition.
--- NOTE | 2017-09-28 08:24 | RAD ---
HISTORY: chest pain COMPARISON: Chest x-ray performed 08/20/17 TECHNIQUE: Chest, one view. FINDINGS: Right-sided MediPort extends to the SVC cavoatrial junction. LUNGS: Mild venous congestion. No focal consolidation. Please note that chest x-ray has limited sensitivity for the detection of pulmonary masses. PLEURA: No significant pleural effusion identified. No definite pneumothorax . CARDIOVASCULAR: Cardiomegaly. OSSEOUS STRUCTURES: No acute osseous abnormality identified. VISUALIZED UPPER ABDOMEN: Unremarkable. OTHER FINDINGS: None. IMPRESSION: Right-sided MediPort. Mild venous congestion. Cardiomegaly.
--- NOTE | 2017-09-28 23:15 | CARD ---
APPROVED REPORT EKG Measurement Heart [id number] <Conclusion> Normal sinus rhythm Voltage criteria for left ventricular hypertrophy Prolonged QT Abnormal ECG
== END 2017-09-27 21:25 | disposition home or self-care (01) ==
LOC: C.ER 17:06
DX: I10 Essential (primary) hypertension (principal)

== ENCOUNTER 2017-09-29 17:22 | Emergency (ER) | payer MEDICAID ==
[2017-09-29 17:22] VITALS: BMI 27.3
[2017-09-29 18:12] LABS: BASO % 0.3 % (0.0-2.0); EOS # 0.3 K/uL (0.0-0.7); EOS % 3.1 % (0.0-4.0); HEMOGLOBIN 11.5 g/dL (11.0-16.0); LYMPH # 0.9 K/uL (1.0-4.3); LYMPH % 10.4 % (20.0-40.0); MEAN CELL VOLUME 96.9 fL (81.0-99.0); MEAN CORPUSCULAR HEMOGLOBIN 31.9 pg (27.0-31.0); MEAN PLATELET VOLUME 7.7 fL (7.2-11.7); MONO # 0.5 K/uL (0.0-0.8); MONO % 5.5 % (0.0-10.0); NEUT # 6.7 K/uL (1.8-7.0); NEUT % 80.7 % (50.0-75.0); NRBC % 0.1 % (0.0-2.0); RBC 3.61 Mil/uL (3.80-5.20); RED CELL DISTRIBUTION WIDTH 18.1 % (11.5-14.5); WHITE BLOOD COUNT 8.3 K/uL (4.8-10.8)
[2017-09-29 18:35] VITALS: RESP 20
--- NOTE | 2017-09-29 18:35 | C.PDOC ---
History Of Present Illness 31 years old female presents to ED with complaints of abdominal pain associated with chronic constipation due to narcotics over use. Patient does not have gastroparesis. Patient has had many prior evaluations for the same symptoms; including extensive narcotic use. In April patient was seen for osteomyelitis which has been resolved after 6 weeks of taking antibiotics at [facility]. Spoke with Dr. Qiana Obando in February 2017: Patients pain issues were completely resolved Since then [facility] got 3 different prescriptions for narcotics for the patient. Patient has had multiple recent admissions for belly pain for attractable pain which shows since February 2017 11 admissions for abdominal pain and vomiting issues. Patient claims she was referred to ER by Dr. Edilia Sexton and was told that she was going to recieve narcotics. Patient on dialysis Mondays, Wednesdays and Fridays; last full session was on Sunday. Patient would not answer if she is complaint with blood pressure medications. Time Seen by Provider: 09/29/17 17:41 Chief Complaint (Nursing): Abdominal Pain History Per: Patient History/Exam Limitations: no limitations Onset/Duration Of Symptoms: Hrs Current Symptoms Are (Timing): Still Present Radiation Of Pain To:: None Quality Of Discomfort: Unable To Describe Associated Symptoms: denies: Fever, Chills, Nausea, Vomiting Exacerbating Factors: None Alleviating Factors: None Recent travel outside of the [place]: No Abnormal Vaginal Bleeding: No Past Medical History Reviewed: Historical Data, Nursing Documentation, Vital Signs Vital Signs: Last Vital Signs Temp 98.0 F 09/29/17 19:15 Pulse 92 H 09/29/17 19:15 Resp 20 09/29/17 19:15 BP 175/98 H 09/29/17 19:15 Pulse Ox 97 09/29/17 19:15 - Medical History PMH: Anemia, Anxiety, Asthma, Bronchitis, CHF, Diabetes, Fractures (Sep 2012 L foot), Gastritis, Gastrointestinal Ulcer (gastroparesis), Gall Bladder Disease ( gallbladder removed), Hepatitis, HTN, Hypercholesterolemia, Hyperthyroidism, Hypothyroidism, Kidney Stones, Pancreatitis (chronic), Peripheral Edema, Pneumonia, End Stage Renal Disease, Chronic Kidney Disease, Seizures, Sleep Apnea, Chronic Pain Surgical History: Cholecystectomy, Coronary Stent - [facility] Procedures (09/03/17) ASSISTANCE WITH RESPIRATORY VENTILATION, 24-96 HRS, CPAP (11/27/16) CAUTERY TO STOP EPISTAX (03/22/14) CENTRAL VENOUS CATHETER PLACEMENT WITH GUIDANCE (11/06/14) DIALYSIS ARTERIOVENOSTOM (01/10/14) DILATION OF LEFT SUBCLAVIAN VEIN, PERCUTANEOUS APPROACH (09/03/17) DRAINAGE OF RIGHT FOOT SKIN, EXTERNAL APPROACH (07/17/16) DRAINAGE OF RIGHT LOWER ARM SKIN, EXTERNAL APPROACH (05/25/16) ESOPHAGOGASTRODUODENOSCOPY [EGD] W/CLOSED BIOPSY (03/03/14) EXCISION OF LEFT TOE PHALANX, OPEN APPROACH (07/12/17) EXCISION OF STOMACH, ENDO, DIAGN (05/09/16) EXTIRPATE MATTER FROM R LOW ARM SUBCU/FASCIA, PERC (05/25/16) EXTRACTION OF RIGHT FOOT SKIN, EXTERNAL APPROACH (05/25/16) EXTRACTION OF TOE NAIL, EXTERNAL APPROACH (07/12/17) FLEXIBLE SIGMOIDOSCOPY (10/26/14) FLUOROSCOPY OF LEFT SUBCLAVIAN VEIN USING OTHER CONTRAST (09/03/17) FLUOROSCOPY OF R JUGULAR VEIN USING L OSM CONTRAST, GUIDANCE (12/13/15) FLUOROSCOPY OF RIGHT SUBCLAVIAN VEIN, GUIDANCE (08/07/16) HEMODIALYSIS (04/05/15) INJECT INSULIN (12/23/12) INJECT/INFUSE ELECTROLYT (12/23/12) INJECT/INFUSE NEC (01/17/15) INSERT INFUSION DEV IN R INT JUGULAR VEIN, PERC (02/23/16) INSERT VAD RESERVOIR IN CHEST SUBCU/FASCIA, OPEN (08/19/17) INSERTION OF INFUSION DEV INTO R BASILIC VEIN, PERC APPROACH (04/18/16) INSERTION OF INFUSION DEV INTO R BRACH VEIN, PERC APPROACH (02/19/17) INSERTION OF INFUSION DEV INTO R SUBCLAV VEIN, PERC APPROACH (08/29/16) INSERTION OF INFUSION DEV INTO SUP VENA CAVA, PERC APPROACH (08/19/17) INSERTION OF INFUSION DEVICE INTO R ATRIUM, PERC APPROACH (12/13/15) INSERTION OF VAD INTO CHEST SUBCU/FASCIA, OPEN APPROACH (12/13/15) MEASURE OF CARDIAC SAMPL & PRESSURE, L HEART, PERC APPROACH (10/09/16) OTHER ENDOSCOPY OF SM INTEST (08/25/14) PACKED CELL TRANSFUSION (10/26/14) PERFORMANCE OF URINARY FILTRATION, MULTIPLE (03/19/17) PERFORMANCE OF URINARY FILTRATION, SINGLE (11/27/16) PLAIN RADIOGRAPHY OF LEFT HEART USING OTHER CONTRAST (10/09/16) PLAIN RADIOGRAPHY OF MULT COR ART USING OTH CONTRAST (10/09/16) PLICATION OF VENA CAVA (03/22/14) POST NASAL PAC FOR EPIST (03/22/14) REMOVAL OF VAD FROM TRUNK SUBCU/FASCIA, OPEN APPROACH (02/23/16) RESECTION OF TOE NAIL, EXTERNAL APPROACH (08/19/17) MELVIN KENNY DIALYSIS SHUNT (03/03/14) THERAPEUTIC ERYTHROCYTAPHERESIS (10/26/14) TRANSFUSE NONAUT RED BLOOD CELLS IN PERIPH VEIN, PERC (02/19/17) ULTRASONOGRAPHY OF RIGHT AND LEFT HEART, TRANSESOPHAGEAL (02/19/17) ULTRASONOGRAPHY OF RIGHT SUBCLAVIAN VEIN, GUIDANCE (08/29/16) ULTRASONOGRAPHY OF RIGHT UPPER EXTREMITY VEINS, GUIDANCE (02/19/17) VACCINATION NEC (10/26/14) VENOUS CATHETERIZATION FOR RENAL DIALYSIS (03/03/14) Family History: States: Unknown Family Hx - Social History Hx Tobacco Use: No Hx Alcohol Use: No Hx Substance Use: No - Immunization History Hx Tetanus Toxoid Vaccination: No Hx Influenza Vaccination: Yes (05/2017) Hx Pneumococcal Vaccination: Yes (2015) Review Of Systems Constitutional: Negative for: Fever, Chills Cardiovascular: Negative for: Chest Pain Respiratory: Negative for: Shortness of Breath Gastrointestinal: Positive for: Abdominal Pain. Negative for: Nausea, Vomiting , Diarrhea, Constipation Neurological: Negative for: Weakness, Numbness Physical Exam - Physical Exam Appears: Non-toxic, In Acute Distress (Mild), Other (typical yelling, screaming) Skin: Normal Color, Warm, Dry Head: Atraumatic, Normacephalic Eye(s): bilateral: Other (dilated pupils) Oral Mucosa: Moist Neck: Supple Chest: Symmetrical, No Tenderness Cardiovascular: Rhythm Regular Respiratory: Normal Breath Sounds, No Decreased Breath Sounds, No Rales, No Rhonchi, No Wheezing Gastrointestinal/Abdominal: Soft, No Tenderness, No Distention, No Guarding, No Rebound Neurological/Psych: Oriented x3, Normal Speech, Normal Cognition ED Course And Treatment - Laboratory Results Result Diagrams: 09/29/17 18:09 09/29/17 18:09 Lab Interpretation: Normal (baseline for this HD pt) Urine POC: Negative O2 Sat by Pulse Oximetry: 96 (RA) Pulse Ox Interpretation: Normal Reevaluation Time: 18:56 Reassessment Condition: Improved (initially hystrionic and loud and foul-mouthed , eventually) Medical Decision Making Medical Decision Making: Ordered blood work, X-Ray, and urinalysis. Administered Pepcid and Zofran Inj. Patient's evaluation does not complain of nausea or vomiting. Discussed with Dr. Edilia Sexton at 6PM and he declines admitting the patient. 1900: chronic abd discomfort usually due to narcotics induced constipation No suspicion of ectopic as QHCG neg. no narcotics-requiring pathology since 02/26, yet 3 more Rx's for narcotics prescribed and multiple admissions for pain issues. No acute issues today, denied narcotics which will only make chronic constipation worse. d/w Dr. Yoly Sexton, who agrees w safe d/c home. Disposition Doctor Will See Patient In The: Office Counseled Patient/Family Regarding: Studies Performed, Diagnosis - Disposition Referrals: Kim Sexton MD [Staff Provider] - Disposition: HOME/ ROUTINE Disposition Time: 18:58 Condition: GOOD Additional Instructions: trial a laxative for your colicky abdominal pains, and re-evaluate your abdominal discomfort after using the bathroom 2-3 times. Repeat as needed Narcotics make constipation worse. Follow-up w your PMD as needed. Instructions: Constipation in Adults, Constipation, Adult (DC), Anxiety, Adult (DC) Forms: [facility] (Uzbek) - Clinical Impression Clinical Impression: Anxiety, Colicky periumbilical abdominal pain - Scribe Statement The provider has reviewed the documentation as recorded by the Kwadwoibjoan Sow All medical record entries made by the Scribe were at my direction and personally dictated by me. I have reviewed the chart and agree that the record accurately reflects my personal performance of the history, physical exam, medical decision making, and the department course for this patient. I have also personally directed, reviewed, and agree with the discharge instructions and disposition.
[2017-09-29 18:36] LABS: ALB/GLOB RATIO 1.1 (1.0-2.1); ALBUMIN 4.2 g/dL (3.5-5.0); CALCIUM 8.3 mg/dl (8.6-10.4)
[2017-09-29 19:42] VITALS: BP 175/98; PULSE 92; TEMP 98
[2017-09-29 21:06] VITALS: O2SAT 96
== END 2017-09-29 19:15 | disposition home or self-care (01) ==
LOC: C.ER 17:22
DX: R10.84 Generalized abdominal pain (principal); F41.9 Anxiety disorder, unspecified; D64.9 Anemia, unspecified; I10 Essential (primary) hypertension; E78.00 Pure hypercholesterolemia, unspecified
CPT/HCPCS: 80053; 83690; 84702; 85025; 96374; 96375; 99284; J2405

== ENCOUNTER 2018-01-19 13:17 | Emergency (ER) | payer MEDICAID ==
[2018-01-19 13:17] VITALS: BMI 27.3
[2018-01-19 13:41] VITALS: TEMP 99.6
--- NOTE | 2018-01-19 14:32 | C.PDOC ---
History Of Present Illness Patient is a 32 y/o female, with a Hx of dialysis, who presents to the ED with complaints of productive cough and congestion for the last 1 week. Patient also notes developing hives on chest for 1 week. Admits phlegm is yellow in nature and was prescribed Sudafed by Dr Edilia Sexton on 01/15 without relief. Patient also took Aleve today without relief. While receiving dialysis today, patient had tmax of 101; since, temperature has decreased. Patient does not produce urine. Denies any recent travel or taking any antibiotics. Time Seen by Provider: 01/19/18 13:50 Chief Complaint (Nursing): Fever History Per: Patient History/Exam Limitations: no limitations Onset/Duration Of Symptoms: Days (1 week) Current Symptoms Are (Timing): Still Present Associated Symptoms: Cough, Sputum (yellow), Nasal Congestion Recent travel outside of the [place]: No Past Medical History Reviewed: Historical Data, Nursing Documentation, Vital Signs Vital Signs: Last Vital Signs Temp 99.6 F 01/19/18 13:36 Pulse 115 H 01/19/18 15:50 Resp 22 01/19/18 15:50 BP 222/126 H 01/19/18 15:50 Pulse Ox 100 01/19/18 15:50 - Medical History PMH: Anemia, Anxiety, Asthma, Bronchitis, CHF, Diabetes, Fractures (Sep 2012 L foot), Gastritis, Gastrointestinal Ulcer (gastroparesis), Gall Bladder Disease, Hepatitis, HTN, Hypercholesterolemia, Hyperthyroidism, Hypothyroidism, Kidney Stones, Pancreatitis, Peripheral Edema, Pneumonia, End Stage Renal Disease, Chronic Kidney Disease, Seizures, Sleep Apnea, Chronic Pain Surgical History: Cholecystectomy, Coronary Stent - [facility] Procedures (09/03/17) ASSISTANCE WITH RESPIRATORY VENTILATION, 24-96 HRS, CPAP (11/27/16) CAUTERY TO STOP EPISTAX (03/22/14) CENTRAL VENOUS CATHETER PLACEMENT WITH GUIDANCE (11/06/14) DIALYSIS ARTERIOVENOSTOM (01/10/14) DILATION OF LEFT SUBCLAVIAN VEIN, PERCUTANEOUS APPROACH (09/03/17) DRAINAGE OF RIGHT FOOT SKIN, EXTERNAL APPROACH (07/17/16) DRAINAGE OF RIGHT LOWER ARM SKIN, EXTERNAL APPROACH (05/25/16) ESOPHAGOGASTRODUODENOSCOPY [EGD] W/CLOSED BIOPSY (03/03/14) EXCISION OF LEFT TOE PHALANX, OPEN APPROACH (07/12/17) EXCISION OF STOMACH, ENDO, DIAGN (05/09/16) EXTIRPATE MATTER FROM R LOW ARM SUBCU/FASCIA, PERC (05/25/16) EXTRACTION OF RIGHT FOOT SKIN, EXTERNAL APPROACH (05/25/16) EXTRACTION OF TOE NAIL, EXTERNAL APPROACH (07/12/17) FLEXIBLE SIGMOIDOSCOPY (10/26/14) FLUOROSCOPY OF LEFT SUBCLAVIAN VEIN USING OTHER CONTRAST (09/03/17) FLUOROSCOPY OF R JUGULAR VEIN USING L OSM CONTRAST, GUIDANCE (12/13/15) FLUOROSCOPY OF RIGHT SUBCLAVIAN VEIN, GUIDANCE (08/07/16) HEMODIALYSIS (04/05/15) INJECT INSULIN (12/23/12) INJECT/INFUSE ELECTROLYT (12/23/12) INJECT/INFUSE NEC (01/17/15) INSERT INFUSION DEV IN R INT JUGULAR VEIN, PERC (02/23/16) INSERT VAD RESERVOIR IN CHEST SUBCU/FASCIA, OPEN (08/19/17) INSERTION OF INFUSION DEV INTO R BASILIC VEIN, PERC APPROACH (04/18/16) INSERTION OF INFUSION DEV INTO R BRACH VEIN, PERC APPROACH (02/19/17) INSERTION OF INFUSION DEV INTO R SUBCLAV VEIN, PERC APPROACH (08/29/16) INSERTION OF INFUSION DEV INTO SUP VENA CAVA, PERC APPROACH (08/19/17) INSERTION OF INFUSION DEVICE INTO R ATRIUM, PERC APPROACH (12/13/15) INSERTION OF VAD INTO CHEST SUBCU/FASCIA, OPEN APPROACH (12/13/15) MEASURE OF CARDIAC SAMPL & PRESSURE, L HEART, PERC APPROACH (10/09/16) OTHER ENDOSCOPY OF SM INTEST (08/25/14) PACKED CELL TRANSFUSION (10/26/14) PERFORMANCE OF URINARY FILTRATION, MULTIPLE (03/19/17) PERFORMANCE OF URINARY FILTRATION, SINGLE (11/27/16) PLAIN RADIOGRAPHY OF LEFT HEART USING OTHER CONTRAST (10/09/16) PLAIN RADIOGRAPHY OF MULT COR ART USING OTH CONTRAST (10/09/16) PLICATION OF VENA CAVA (03/22/14) POST NASAL PAC FOR EPIST (03/22/14) REMOVAL OF VAD FROM TRUNK SUBCU/FASCIA, OPEN APPROACH (02/23/16) RESECTION OF TOE NAIL, EXTERNAL APPROACH (08/19/17) MELVIN KENNY DIALYSIS SHUNT (03/03/14) THERAPEUTIC ERYTHROCYTAPHERESIS (10/26/14) TRANSFUSE NONAUT RED BLOOD CELLS IN PERIPH VEIN, PERC (02/19/17) ULTRASONOGRAPHY OF RIGHT AND LEFT HEART, TRANSESOPHAGEAL (02/19/17) ULTRASONOGRAPHY OF RIGHT SUBCLAVIAN VEIN, GUIDANCE (08/29/16) ULTRASONOGRAPHY OF RIGHT UPPER EXTREMITY VEINS, GUIDANCE (02/19/17) VACCINATION NEC (10/26/14) VENOUS CATHETERIZATION FOR RENAL DIALYSIS (03/03/14) Family History: States: No Known Family Hx - Social History Hx Tobacco Use: No Hx Alcohol Use: No Hx Substance Use: No - Immunization History Hx Tetanus Toxoid Vaccination: No Hx Influenza Vaccination: Yes (05/2017) Hx Pneumococcal Vaccination: Yes (2015) Review Of Systems Except As Marked, All Systems Reviewed And Found Negative. Constitutional: Positive for: Fever ENT: Positive for: Nose Congestion Cardiovascular: Negative for: Chest Pain, Palpitations Respiratory: Positive for: Cough Skin: Positive for: Rash (diffuse hives on chest) Physical Exam - Physical Exam Additional Physical Exam Comments: Constitutional: No acute distress. Head: Normocephalic. Atraumatic. Eyes: PERRL. ENT: Moist mucous membranes. No erythema or exudates. Neck: Supple. Cardiovascular: Tachycardic rate. Radial pulse 2+ bilaterally. Chest: No tenderness. Respiratory: Clear to auscultation bilaterally. GI: Soft. Nontender. Nondistended. Back: No CVA tenderness. Musculoskeletal: No tenderness or swelling of extremities. Skin: No rash. Neurologic: Alert, no focal deficit. ED Course And Treatment - Laboratory Results Result Diagrams: 01/19/18 14:59 01/19/18 14:59 O2 Sat by Pulse Oximetry: 96 - Radiology CXR: Interpreted by Me, Viewed By Mn CXR Interpretation: Yes: No Acute Disease Disposition Discussed With : Kim Sexton Doctor Will See Patient In The: Office - Disposition Referrals: Kim Sexton MD [Staff Provider] - Disposition: HOME/ ROUTINE Disposition Time: 15:34 Condition: STABLE Prescriptions: Guaifenesin/Dextromethorphan [Mucinex Dm ER 1,200-60 mg Tab] 1 tab PO Q12H #18 tab.er.12h Instructions: Cough, Adult (DC) Forms: [employer] (Thai) - Clinical Impression Clinical Impression: URI (upper respiratory infection)
--- NOTE | 2018-01-19 14:57 | RAD ---
HISTORY: cough COMPARISON: Comparison is made with 09/27/2017 TECHNIQUE: Chest PA and lateral FINDINGS: LUNGS: No evidence of a new infiltrate or consolidation in the lungs. PLEURA: No significant pleural effusion identified. No pneumothorax apparent. CARDIOVASCULAR: Normal. OSSEOUS STRUCTURES: No significant abnormalities. VISUALIZED UPPER ABDOMEN: Normal. OTHER FINDINGS: Right-sided Infusaport is seen in place. IMPRESSION: No evidence of acute pulmonary disease or significant interval change.
[2018-01-19 15:03] LABS: BASO # 0.1 K/uL (0.0-0.2); BASO % 0.8 % (0.0-2.0); EOS # 0.2 K/uL (0.0-0.7); HEMOGLOBIN 11.2 g/dL (11.0-16.0); LYMPH # 0.8 K/uL (1.0-4.3); LYMPH % 10.8 % (20.0-40.0); MEAN CELL VOLUME 93.8 fL (81.0-99.0); MEAN CORPUSCULAR HEMOGLOBIN 30.9 pg (27.0-31.0); MEAN CORPUSCULAR HGB CONC 32.9 g/dL (33.0-37.0); MEAN PLATELET VOLUME 8.2 fL (7.2-11.7); MONO # 0.5 K/uL (0.0-0.8); NEUT # 5.5 K/uL (1.8-7.0); NEUT % 78.4 % (50.0-75.0); NRBC % 0.1 % (0.0-2.0); RBC 3.62 Mil/uL (3.80-5.20); RED CELL DISTRIBUTION WIDTH 17.5 % (11.5-14.5)
[2018-01-19 15:09] LABS: VENOUS BLOOD GAS BASE EXCESS -2.2 mmol/L (0.0-2.0); VENOUS BLOOD GAS PCO2 41 mmHg (40-60); VENOUS BLOOD GAS PO2 62 mm/Hg (30-55); VENOUS BLOOD PH 7.36 (7.32-7.43)
[2018-01-19 15:15] LABS: ALB/GLOB RATIO 1.1 (1.0-2.1); ALBUMIN 3.9 g/dL (3.5-5.0); CALCIUM 8.3 mg/dl (8.6-10.4)
[2018-01-19] MEDS ORDERED: DiphenhydrAMINE 50 mg/ml Inj IVP STA (15:24)
[2018-01-19] MEDS ORDERED: DiphenhydrAMINE 50 mg/ml Inj ONE (15:29)
[2018-01-19 15:51] VITALS: BP 222/126; PULSE 115; RESP 22
[2018-01-19 16:35] VITALS: O2SAT 96
== END 2018-01-19 16:58 | disposition home or self-care (01) ==
LOC: C.ER 13:17
DX: J06.9 Acute upper respiratory infection, unspecified (principal)
CPT/HCPCS: 71046; 80053; 82803; 84702; 85025; 96374; 99284; J1200

== ENCOUNTER 2018-03-13 16:45 | Emergency (ER) | payer MEDICAID ==
[2018-03-13 16:45] VITALS: BMI 27.3
[2018-03-13 17:08] VITALS: BP 135/87; PULSE 110; RESP 20; TEMP 99.8; O2SAT 95
--- NOTE | 2018-03-13 17:40 | C.PDOC ---
History Of Present Illness Pt c/o painful lump in her right groin area. Time Seen by Provider: 03/13/18 17:15 Chief Complaint (Nursing): Abnormal Skin Integrity History Per: Patient, Family Onset/Duration Of Symptoms: Days (Years, but painful today) Current Symptoms Are (Timing): Still Present Location Of Injury: Right: Labia Quality Of Symptoms: Painful. denies: Draining Severity: Moderate Additional History Per: Prior Records Past Medical History Reviewed: Historical Data, Nursing Documentation, Vital Signs Vital Signs: Last Vital Signs Temp 99.8 F H 03/13/18 17:02 Pulse 110 H 03/13/18 17:02 Resp 20 03/13/18 17:02 BP 135/87 03/13/18 17:02 Pulse Ox 95 03/13/18 17:02 - Medical History PMH: Anemia, Anxiety, Asthma, Bronchitis, CHF, Diabetes, Fractures, Gastritis, Gastrointestinal Ulcer (gastroparesis), Gall Bladder Disease, Hepatitis, HTN, Hypercholesterolemia, Hyperthyroidism, Hypothyroidism, Kidney Stones, Pancreatitis, Peripheral Edema, Pneumonia, End Stage Renal Disease, Chronic Kidney Disease, Seizures, Sleep Apnea, Chronic Pain Surgical History: Cholecystectomy, Coronary Stent - [facility] Procedures (09/03/17) ASSISTANCE WITH RESPIRATORY VENTILATION, 24-96 HRS, CPAP (11/27/16) CAUTERY TO STOP EPISTAX (03/22/14) CENTRAL VENOUS CATHETER PLACEMENT WITH GUIDANCE (11/06/14) DIALYSIS ARTERIOVENOSTOM (01/10/14) DILATION OF LEFT SUBCLAVIAN VEIN, PERCUTANEOUS APPROACH (09/03/17) DRAINAGE OF RIGHT FOOT SKIN, EXTERNAL APPROACH (07/17/16) DRAINAGE OF RIGHT LOWER ARM SKIN, EXTERNAL APPROACH (05/25/16) ESOPHAGOGASTRODUODENOSCOPY [EGD] W/CLOSED BIOPSY (03/03/14) EXCISION OF LEFT TOE PHALANX, OPEN APPROACH (07/12/17) EXCISION OF STOMACH, ENDO, DIAGN (05/09/16) EXTIRPATE MATTER FROM R LOW ARM SUBCU/FASCIA, PERC (05/25/16) EXTRACTION OF RIGHT FOOT SKIN, EXTERNAL APPROACH (05/25/16) EXTRACTION OF TOE NAIL, EXTERNAL APPROACH (07/12/17) FLEXIBLE SIGMOIDOSCOPY (10/26/14) FLUOROSCOPY OF LEFT SUBCLAVIAN VEIN USING OTHER CONTRAST (09/03/17) FLUOROSCOPY OF R JUGULAR VEIN USING L OSM CONTRAST, GUIDANCE (12/13/15) FLUOROSCOPY OF RIGHT SUBCLAVIAN VEIN, GUIDANCE (08/07/16) HEMODIALYSIS (04/05/15) INJECT INSULIN (12/23/12) INJECT/INFUSE ELECTROLYT (12/23/12) INJECT/INFUSE NEC (01/17/15) INSERT INFUSION DEV IN R INT JUGULAR VEIN, PERC (02/23/16) INSERT VAD RESERVOIR IN CHEST SUBCU/FASCIA, OPEN (08/19/17) INSERTION OF INFUSION DEV INTO R BASILIC VEIN, PERC APPROACH (04/18/16) INSERTION OF INFUSION DEV INTO R BRACH VEIN, PERC APPROACH (02/19/17) INSERTION OF INFUSION DEV INTO R SUBCLAV VEIN, PERC APPROACH (08/29/16) INSERTION OF INFUSION DEV INTO SUP VENA CAVA, PERC APPROACH (08/19/17) INSERTION OF INFUSION DEVICE INTO R ATRIUM, PERC APPROACH (12/13/15) INSERTION OF VAD INTO CHEST SUBCU/FASCIA, OPEN APPROACH (12/13/15) MEASURE OF CARDIAC SAMPL & PRESSURE, L HEART, PERC APPROACH (10/09/16) OTHER ENDOSCOPY OF SM INTEST (08/25/14) PACKED CELL TRANSFUSION (10/26/14) PERFORMANCE OF URINARY FILTRATION, MULTIPLE (03/19/17) PERFORMANCE OF URINARY FILTRATION, SINGLE (11/27/16) PLAIN RADIOGRAPHY OF LEFT HEART USING OTHER CONTRAST (10/09/16) PLAIN RADIOGRAPHY OF MULT COR ART USING OTH CONTRAST (10/09/16) PLICATION OF VENA CAVA (03/22/14) POST NASAL PAC FOR EPIST (03/22/14) REMOVAL OF VAD FROM TRUNK SUBCU/FASCIA, OPEN APPROACH (02/23/16) RESECTION OF TOE NAIL, EXTERNAL APPROACH (08/19/17) MELVIN KENNY DIALYSIS SHUNT (03/03/14) THERAPEUTIC ERYTHROCYTAPHERESIS (10/26/14) TRANSFUSE NONAUT RED BLOOD CELLS IN PERIPH VEIN, PERC (02/19/17) ULTRASONOGRAPHY OF RIGHT AND LEFT HEART, TRANSESOPHAGEAL (02/19/17) ULTRASONOGRAPHY OF RIGHT SUBCLAVIAN VEIN, GUIDANCE (08/29/16) ULTRASONOGRAPHY OF RIGHT UPPER EXTREMITY VEINS, GUIDANCE (02/19/17) VACCINATION NEC (10/26/14) VENOUS CATHETERIZATION FOR RENAL DIALYSIS (03/03/14) Family History: States: Unknown Family Hx - Social History Hx Tobacco Use: No Hx Alcohol Use: No Hx Substance Use: No - Immunization History Hx Tetanus Toxoid Vaccination: No Hx Influenza Vaccination: Yes (05/2017) Hx Pneumococcal Vaccination: Yes (2016) Review Of Systems Except As Marked, All Systems Reviewed And Found Negative. Constitutional: Positive for: Fever (last week, resolved). Negative for: Weakness Cardiovascular: Negative for: Chest Pain Respiratory: Negative for: Shortness of Breath Gastrointestinal: Negative for: Vomiting, Abdominal Pain Genitourinary: Negative for: Vaginal Discharge, Vaginal Bleeding, Pelvic Pain Musculoskeletal: Negative for: Neck Pain, Back Pain Skin: Positive for: Lesions Neurological: Negative for: Weakness, Numbness Physical Exam - Physical Exam Appears: Non-toxic, No Acute Distress, Chronically Ill Skin: Normal Color, Warm, Dry Head: Atraumatic, Normacephalic Eye(s): bilateral: PERRL, EOMI Neck: Normal ROM, Supple Cardiovascular: Rhythm Regular Respiratory: Normal Breath Sounds, No Accessory Muscle Use Gastrointestinal/Abdominal: Soft, No Tenderness Pelvic: Other (On external exam, pt has tender indurated area on right labia majora, no fluctuance. Nixon RN chaparone.) Extremity: Normal ROM, No Pedal Edema, No Calf Tenderness Neurological/Psych: Oriented x3, Normal Motor, Normal Sensation ED Course And Treatment O2 Sat by Pulse Oximetry: 95 Pulse Ox Interpretation: Normal Progress Note: Pt states that she had full dialysis today. Disposition Counseled Patient/Family Regarding: Diagnosis, Need For Followup, Rx Given - Disposition Referrals: Kim Sexton MD [Staff Provider] - Disposition: HOME/ ROUTINE Disposition Time: 17:40 Condition: STABLE Additional Instructions: Follow up with your doctor within 1 week. Return to the ER if you develop fever , lump gets bigger, worsening of symptoms or if you have any other concerns. Prescriptions: Clindamycin [Cleocin] 300 mg PO QID #40 cap Instructions: Boil (DC) Forms: [employer] (Congolese) - Clinical Impression Clinical Impression: Abscess of labia majora
== END 2018-03-13 17:51 | disposition home or self-care (01) ==
LOC: C.ER 16:45
DX: N76.4 Abscess of vulva (principal)

== ENCOUNTER 2018-07-17 21:00 | Inpatient (IN) | payer MEDICAID ==
[2018-07-17 21:01] VITALS: BMI 27.3
[2018-07-17 22:55] LABS: BASO # 0.1 K/uL (0.0-0.2); BASO % 0.9 % (0.0-2.0); EOS # 0.7 K/uL (0.0-0.7); HEMOGLOBIN 10.1 g/dL (11.0-16.0); LYMPH # 1.2 K/uL (1.0-4.3); LYMPH % 15.4 % (20.0-40.0); MEAN CELL VOLUME 95.5 fL (81.0-99.0); MEAN CORPUSCULAR HEMOGLOBIN 30.3 pg (27.0-31.0); MEAN CORPUSCULAR HGB CONC 31.7 g/dL (33.0-37.0); MEAN PLATELET VOLUME 7.6 fL (7.2-11.7); MONO # 0.4 K/uL (0.0-0.8); MONO % 5.1 % (0.0-10.0); NEUT # 5.5 K/uL (1.8-7.0); NEUT % 69.6 % (50.0-75.0); RBC 3.32 Mil/uL (3.80-5.20); RED CELL DISTRIBUTION WIDTH 16.3 % (11.5-14.5); WHITE BLOOD COUNT 7.9 K/uL (4.8-10.8)
--- NOTE | 2018-07-17 23:00 | C.PDOC ---
History Of Present Illness 32 year old female with PMHx of ESRD on dialysis presents to the ED for evaluation of small groin abscess in her left leg for the past couple weeks. Patient states abscess now draining. Patient reports she has a port a cath that is not being used right now due to infections, patient states when the port is used purulent discharge comes out. Patient does now have IV access now. Patient has not been seen in the Hospital since March, seen at another facility. Patient denies fever, chills, nausea, vomit, diarrhea, injury, fall, trauma. Time Seen by Provider: 07/17/18 22:01 Chief Complaint (Nursing): Abnormal Skin Integrity History Per: Patient History/Exam Limitations: no limitations Onset/Duration Of Symptoms: Days Current Symptoms Are (Timing): Still Present Location Of Injury: Left: Leg Quality Of Symptoms: Painful, Swollen, Draining Recent travel outside of the [place]: No Additional History Per: Patient Past Medical History Reviewed: Historical Data, Nursing Documentation, Vital Signs Vital Signs: Last Vital Signs Temp 98.1 F 07/17/18 21:06 Pulse 89 07/17/18 21:06 Resp 20 07/17/18 21:06 BP 161/81 H 07/17/18 21:06 Pulse Ox 99 07/17/18 21:06 - Medical History PMH: Anemia, Anxiety, Asthma, Bronchitis, CHF, Diabetes, Fractures (LEFT FOOT), Gastritis, Gastrointestinal Ulcer (gastroparesis), Gall Bladder Disease, Hepatitis, HTN, Hypercholesterolemia, Hyperthyroidism, Hypothyroidism, Kidney Stones, Pancreatitis, Peripheral Edema, Pneumonia, End Stage Renal Disease, Chronic Kidney Disease, Seizures, Sleep Apnea, Chronic Pain Surgical History: Cholecystectomy, Coronary Stent - [facility] Procedures (09/03/17) ASSISTANCE WITH RESPIRATORY VENTILATION, 24-96 HRS, CPAP (11/27/16) CAUTERY TO STOP EPISTAX (03/22/14) CENTRAL VENOUS CATHETER PLACEMENT WITH GUIDANCE (11/06/14) DIALYSIS ARTERIOVENOSTOM (01/10/14) DILATION OF LEFT SUBCLAVIAN VEIN, PERCUTANEOUS APPROACH (09/03/17) DRAINAGE OF RIGHT FOOT SKIN, EXTERNAL APPROACH (07/17/16) DRAINAGE OF RIGHT LOWER ARM SKIN, EXTERNAL APPROACH (05/25/16) ESOPHAGOGASTRODUODENOSCOPY [EGD] W/CLOSED BIOPSY (03/03/14) EXCISION OF LEFT TOE PHALANX, OPEN APPROACH (07/12/17) EXCISION OF STOMACH, ENDO, DIAGN (05/09/16) EXTIRPATE MATTER FROM R LOW ARM SUBCU/FASCIA, PERC (05/25/16) EXTRACTION OF RIGHT FOOT SKIN, EXTERNAL APPROACH (05/25/16) EXTRACTION OF TOE NAIL, EXTERNAL APPROACH (07/12/17) FLEXIBLE SIGMOIDOSCOPY (10/26/14) FLUOROSCOPY OF LEFT SUBCLAVIAN VEIN USING OTHER CONTRAST (09/03/17) FLUOROSCOPY OF R JUGULAR VEIN USING L OSM CONTRAST, GUIDANCE (12/13/15) FLUOROSCOPY OF RIGHT SUBCLAVIAN VEIN, GUIDANCE (08/07/16) HEMODIALYSIS (04/05/15) INJECT INSULIN (12/23/12) INJECT/INFUSE ELECTROLYT (12/23/12) INJECT/INFUSE NEC (01/17/15) INSERT INFUSION DEV IN R INT JUGULAR VEIN, PERC (02/23/16) INSERT VAD RESERVOIR IN CHEST SUBCU/FASCIA, OPEN (08/19/17) INSERTION OF INFUSION DEV INTO R BASILIC VEIN, PERC APPROACH (04/18/16) INSERTION OF INFUSION DEV INTO R BRACH VEIN, PERC APPROACH (02/19/17) INSERTION OF INFUSION DEV INTO R SUBCLAV VEIN, PERC APPROACH (08/29/16) INSERTION OF INFUSION DEV INTO SUP VENA CAVA, PERC APPROACH (08/19/17) INSERTION OF INFUSION DEVICE INTO R ATRIUM, PERC APPROACH (12/13/15) INSERTION OF VAD INTO CHEST SUBCU/FASCIA, OPEN APPROACH (12/13/15) MEASURE OF CARDIAC SAMPL & PRESSURE, L HEART, PERC APPROACH (10/09/16) OTHER ENDOSCOPY OF SM INTEST (08/25/14) PACKED CELL TRANSFUSION (10/26/14) PERFORMANCE OF URINARY FILTRATION, MULTIPLE (03/19/17) PERFORMANCE OF URINARY FILTRATION, SINGLE (11/27/16) PLAIN RADIOGRAPHY OF LEFT HEART USING OTHER CONTRAST (10/09/16) PLAIN RADIOGRAPHY OF MULT COR ART USING OTH CONTRAST (10/09/16) PLICATION OF VENA CAVA (03/22/14) POST NASAL PAC FOR EPIST (03/22/14) REMOVAL OF VAD FROM TRUNK SUBCU/FASCIA, OPEN APPROACH (02/23/16) RESECTION OF TOE NAIL, EXTERNAL APPROACH (08/19/17) [facility] (03/03/14) THERAPEUTIC ERYTHROCYTAPHERESIS (10/26/14) TRANSFUSE NONAUT RED BLOOD CELLS IN PERIPH VEIN, PERC (02/19/17) ULTRASONOGRAPHY OF RIGHT AND LEFT HEART, TRANSESOPHAGEAL (02/19/17) ULTRASONOGRAPHY OF RIGHT SUBCLAVIAN VEIN, GUIDANCE (08/29/16) ULTRASONOGRAPHY OF RIGHT UPPER EXTREMITY VEINS, GUIDANCE (02/19/17) VACCINATION NEC (10/26/14) VENOUS CATHETERIZATION FOR RENAL DIALYSIS (03/03/14) Family History: States: Unknown Family Hx - Social History Hx Tobacco Use: No Hx Alcohol Use: No Hx Substance Use: No - Immunization History Hx Tetanus Toxoid Vaccination: No Hx Influenza Vaccination: Yes (05/2017) Hx Pneumococcal Vaccination: No Review Of Systems Constitutional: Negative for: Fever, Chills Cardiovascular: Negative for: Chest Pain Respiratory: Negative for: Shortness of Breath Gastrointestinal: Negative for: Nausea, Vomiting, Abdominal Pain Genitourinary: Negative for: Dysuria, Hematuria Musculoskeletal: Positive for: Leg Pain Skin: Positive for: Other (abscess) Neurological: Negative for: Weakness, Numbness Physical Exam - Physical Exam Appears: Non-toxic, No Acute Distress Skin: Normal Color, Warm, Dry, Other (small follicular abscess left groin, spontaneously draining, mild induration surrounding it. ) Head: Atraumatic, Normacephalic Eye(s): bilateral: Normal Inspection Oral Mucosa: Moist Neck: Normal ROM, Supple Chest: Symmetrical Cardiovascular: Rhythm Regular Respiratory: Normal Breath Sounds, No Rales, No Rhonchi, No Wheezing Gastrointestinal/Abdominal: Soft, No Tenderness, No Guarding, No Rebound Extremity: Normal ROM, Capillary Refill (< 2 seconds), Other (AV fistula left upper arm, fuctioning fine) Neurological/Psych: Oriented x3, Normal Speech, Normal Cognition Gait: Steady ED Course And Treatment - Laboratory Results Result Diagrams: 07/17/18 22:48 07/17/18 22:48 Lab Interpretation: Abnormal (BUN 35, Cr 4.8 (had dialysis today),) O2 Sat by Pulse Oximetry: 99 (ON RA) Pulse Ox Interpretation: Normal - Radiology CXR: Interpreted by Me CXR Interpretation: Yes: No Acute Disease - Physician Consult Information Physician Contacted: Laureano Sexton Outcome Of Conversation: Patient to be admitted for surgical consult for port removal and new IV access. She will need IV antibiotics Medical Decision Making Medical Decision Making: Plan: * Labs * CXR * Benadryl 50 mg IM * Dilaudid 1 mg IM * Blood culture * Wound culture * UA Disposition - Disposition Disposition: HOSPITALIZED Disposition Time: 22:57 Condition: STABLE - POA Present On Arrival: Poor Glycemic Control - Clinical Impression Clinical Impression: Catheter-related bloodstream infection (CRBSI), ESRD (end stage renal disease) on dialysis, Abscess of left groin - Scribe Statement The provider has reviewed the documentation as recorded by the Scribjoan Ruiz All medical record entries made by the Kwadwoibjoan were at my direction and personally dictated by me. I have reviewed the chart and agree that the record accurately reflects my personal performance of the history, physical exam, [facility] decision making, and the department course for this patient. I have also personally directed, reviewed, and agree with the discharge instructions and disposition.
[2018-07-17 23:10] LABS: ALB/GLOB RATIO 1.3 (1.0-2.1); ALBUMIN 4.7 g/dL (3.5-5.0); CALCIUM 8.7 mg/dl (8.6-10.4)
[2018-07-17] MEDS ORDERED: DiphenhydrAMINE 50 mg/ml Inj IM STA (23:29)
[2018-07-17] MEDS ORDERED: DiphenhydrAMINE 50 mg/ml Inj ONE (23:39)
--- NOTE | 2018-07-18 06:48 | CP.PCM.CON ---
<OmidMarsha - Last Filed: 07/18/18 06:35> History of Present Illness - History of Present Illness History of Present Illness: Surgery: Dr. Green Pt is a 32F with significant PMHx of DM, ESRD on HD, anemia of chronic disease, erosive gastritis, PUD & esophageal candidiasis who presents to for complaints of Left groin abscess and possible infected port-a-cath. Pt states that the abscess in her groin started about a week ago as a little bump. She states it's been painful to touch and she has had similar abscesses in the past. She admits to low grade fevers at home. As for her port, pt states she was at [facility] a few weeks ago and while accessing the port she was told purulent discharge was noted. She was told the port could not be used because it was infected. Pt has poor venous access and that's the reason the port was placed. Pt admits to having infected ports in the past that had to be replaced. Surgery called to evaluate. Currently, pt denies any complaints other than pain in the left groin around the abscess. Denies fevers/chills, nausea/vomiting, chest pain or SOB. PMHx: as listed PSHx: cholecystectomy, intra-abdominal abscess drainage, chest wall debridement SocialHx: denies smoking, EtOH/drugs All: as listed in EMR Review of Systems - Review of Systems All systems: reviewed and no additional remarkable complaints except (as per HPI) Past Patient History - Infectious Disease Hx of Infectious Diseases: None - Tetanus Immunizations Tetanus Immunization: Unknown - Past Medical History & Family History Past Medical History?: Yes - Past Social History Smoking Status: Never Smoked - CARDIAC Hx Cardiac Disorders: Yes Hx Congestive Heart Failure: Yes Hx Hypercholesterolemia: Yes Hx Hypertension: Yes Hx Peripheral Edema: Yes - PULMONARY Hx Respiratory Disorders: Yes Hx Asthma: Yes Hx Bronchitis: Yes Hx Pneumonia: Yes Hx Sleep Apnea: Yes - NEUROLOGICAL Hx Neurological Disorder: Yes Hx Seizures: Yes - HEENT Hx HEENT Problems: Yes Hx Cataracts: Yes (BOTH EYES) Hx Glaucoma: Yes (BOTH EYES) - RENAL Date of Last Dialysis Treatment: 07/17/18 - ENDOCRINE/METABOLIC Hx Endocrine Disorders: Yes Hx Hyperthyroidism: Yes Hx Hypothyroidism: Yes - HEMATOLOGICAL/ONCOLOGICAL Hx Blood Disorders: Yes Hx Anemia: Yes - INTEGUMENTARY Hx Dermatological Problems: Yes Other/Comment: DRY ITCHY SKIN ;multiple/generalized dark spots on skin. left toe blister - MUSCULOSKELETAL/RHEUMATOLOGICAL Hx Falls: Yes - GASTROINTESTINAL Hx Gastrointestinal Disorders: Yes Hx Gall Bladder Disease: Yes Hx Gastritis: Yes Hx Pancreatitis: Yes - GENITOURINARY/GYNECOLOGICAL Hx Genitourinary Disorders: No - PSYCHIATRIC Hx Substance Use: No - SURGICAL HISTORY Hx Surgeries: Yes Hx Cholecystectomy: Yes Hx Coronary Stent: Yes - ANESTHESIA Hx Anesthesia: Yes Hx Anesthesia Reactions: No Hx Malignant Hyperthermia: No Meds Allergies/Adverse Reactions: Allergies Allergy/AdvReac Type Severity Reaction Status Date / Time ketorolac tromethamine Allergy RASH Verified 07/17/18 21:15 [From Toradol] latex Allergy RASH Verified 07/17/18 21:15 morphine Allergy RASH Verified 07/17/18 21:15 tramadol Allergy RASH Verified 07/17/18 21:15 - Medications Medications: Current Medications Calcium Acetate (Phoslo) 667 mg PO TID [facility] Clonidine HCl (Catapres) 0.3 mg PO BID [facility] Diphenhydramine HCl (Benadryl) 25 mg PO Q4 PRN PRN Reason: Itching / Pruritus Last Admin: 07/18/18 03:50 Dose: 25 mg Docusate Sodium (Colace) 100 mg PO TID [facility] Gabapentin (Neurontin) 300 mg PO BID [facility] Heparin Sodium (Porcine) (Heparin) 5,000 units SC DAILY [facility] Home Med (Cholecalciferol [Vitamin D 1000 Iu]) 1,000 unit PO DAILY [facility] Hydromorphone HCl (Dilaudid) 2 mg IM Q4H PRN PRN Reason: Pain, severe (8-10) Last Admin: 07/18/18 03:50 Dose: 2 mg Vancomycin HCl 1 gm/ Sodium (Chloride) 250 mls @ 166.7 mls/hr IVPB Q24H [facility]; Protocol Insulin Glargine (Lantus) 25 unit SC HS [facility] Insulin Human Regular (Novolin R) 0 unit SC ACHS [facility]; Protocol Ondansetron HCl (Zofran Odt) 8 mg PO Q6 PRN PRN Reason: Nausea/Vomiting Last Admin: 07/18/18 05:22 Dose: 8 mg Pantoprazole Sodium (Protonix Ec Tab) 40 mg PO DAILY [facility] Physical Exam - Constitutional Appears: Well, No Acute Distress - Head Exam Head Exam: ATRAUMATIC, NORMOCEPHALIC - Eye Exam Eye Exam: Normal appearance - ENT Exam ENT Exam: Mucous Membranes Moist - Neck Exam Additional comments: R chest with port-a-cath, non-tender, no erythema, discharge or induration noted - Respiratory Exam Respiratory Exam: NORMAL BREATHING PATTERN - Cardiovascular Exam Cardiovascular Exam: Tachycardia - GI/Abdominal Exam GI & Abdominal Exam: Soft. absent: Tenderness - Extremities Exam Additional comments: Left groin with 1x2 cm erythematous mass, infected LN vs abscess, small amount of bloody discharge noted with surrounding induration - Neurological Exam Neurological exam: Alert, Oriented x3 - Skin Skin Exam: Dry, Warm Results - Vital Signs Recent Vital Signs: Last Vital Signs Temp 98.3 F 07/18/18 01:33 Pulse 102 H 07/18/18 01:33 Resp 20 07/18/18 01:33 BP 134/84 07/18/18 01:33 Pulse Ox 95 07/18/18 01:33 - Labs Result Diagrams: 07/17/18 22:48 07/17/18 22:48 Labs: Laboratory Results - last 24 hr 07/17/18 07/17/18 07/18/18 22:48 22:48 02:33 WBC 7.9 RBC 3.32 L Hgb 10.1 L Hct 31.7 L MCV 95.5 MCH 30.3 MCHC 31.7 L RDW 16.3 H Plt Count 370 D MPV 7.6 Neut % (Auto) 69.6 Lymph % (Auto) 15.4 L [place] % (Auto) 5.1 Eos % (Auto) 9.0 H Baso % (Auto) 0.9 Neut # (Auto) 5.5 Lymph # (Auto) 1.2 [place] # (Auto) 0.4 Eos # (Auto) 0.7 Baso # (Auto) 0.1 Sodium 137 Potassium 4.6 Chloride 97 L Carbon Dioxide 24 Anion Gap 20 BUN 35 H Creatinine 4.8 H Est GFR ( Amer) 13 Est GFR (Non-Af Amer) 11 POC Glucose (mg/dL) 65 Random Glucose 286 H Calcium 8.7 Total Bilirubin 0.5 AST 27 ALT 22 Alkaline Phosphatase 219 H D Total Protein 8.5 H Albumin 4.7 Globulin 3.8 Albumin/Globulin Ratio 1.3 07/18/18 07/18/18 02:35 02:59 WBC RBC Hgb Hct MCV MCH MCHC RDW Plt Count MPV Neut % (Auto) Lymph % (Auto) [place] % (Auto) Eos % (Auto) Baso % (Auto) Neut # (Auto) Lymph # (Auto) [place] # (Auto) Eos # (Auto) Baso # (Auto) Sodium Potassium Chloride Carbon Dioxide Anion Gap BUN Creatinine Est GFR ( Amer) Est GFR (Non-Af Amer) POC Glucose (mg/dL) 64 L 86 Random Glucose Calcium Total Bilirubin AST ALT Alkaline Phosphatase Total Protein Albumin Globulin Albumin/Globulin Ratio Assessment & Plan - Assessment and Plan (Free Text) Assessment: 32F with Left groin abscess vs infected lymph node and r/o port-a-cath infection Plan: - plan for removal of port-a-cath in OR tomorrow - medically optimize - d/w Dr. Norma Anne <Yoel Green - Last Filed: 07/21/18 19:10> Meds - Medications Medications: Current Medications Calcium Acetate (Phoslo) 667 mg PO TID [facility] Last Admin: 07/21/18 17:31 Dose: 667 mg Clonidine HCl (Catapres) 0.2 mg PO BID [facility] Last Admin: 07/21/18 17:31 Dose: 0.2 mg Diphenhydramine HCl (Benadryl) 50 mg IVP TTS PRN PRN Reason: itchiness Last Admin: 07/20/18 08:45 Dose: 50 mg Diphenhydramine HCl (Benadryl) 25 mg IVP Q4 PRN PRN Reason: Itching / Pruritus Last Admin: 07/21/18 17:29 Dose: 25 mg Docusate Sodium (Colace) 100 mg PO TID [facility] Last Admin: 07/21/18 17:31 Dose: 100 mg Ergocalciferol (Drisdol 50,000 Intl Units Cap) 1 cap PO QWK [facility] Last Admin: 07/19/18 10:10 Dose: 1 cap Gabapentin (Neurontin) 300 mg PO BID [facility] Last Admin: 07/21/18 17:32 Dose: 300 mg Hydromorphone HCl (Dilaudid) 2 mg IVP Q4 PRN PRN Reason: Pain, moderate (4-7) Last Admin: 07/21/18 17:30 Dose: 2 mg Vancomycin HCl 1 gm/ Sodium (Chloride) 250 mls @ 166.7 mls/hr IVPB TTS@1600 [facility]; Protocol Last Admin: 07/20/18 16:30 Dose: 166.7 mls/hr Insulin Glargine (Lantus) 25 unit SC HS [facility] Last Admin: 07/20/18 21:15 Dose: 25 units Insulin Human Regular (Novolin R) 0 unit SC ACHS [facility]; Protocol Last Admin: 07/21/18 16:30 Dose: 2 units Metoclopramide HCl (Reglan) 10 mg IM Q8 PRN PRN Reason: Nausea/Vomiting Last Admin: 07/18/18 18:35 Dose: 10 mg Mupirocin (Bactroban Ointment) 0 gm TOP BID [facility] Last Admin: 07/21/18 17:28 Dose: 1 applic Ondansetron HCl (Zofran Odt) 8 mg PO Q6 PRN PRN Reason: Nausea/Vomiting Last Admin: 07/19/18 02:13 Dose: 8 mg Pantoprazole Sodium (Protonix Ec Tab) 40 mg PO DAILY [facility] Last Admin: 07/21/18 09:00 Dose: 40 mg Vitamin A (Vitamin A & D Oint Ud Foilpak) 1 ea TOP BID [facility] Last Admin: 07/21/18 12:29 Dose: 1 ea Vitamin B Complex/Vit C/Folic Acid (Nephro-Vamshi) 1 tab PO 0800 [facility] Last Admin: 07/21/18 08:29 Dose: 1 tab Results - Vital Signs Recent Vital Signs: Last Vital Signs Temp 99.3 F 07/21/18 15:00 Pulse 82 07/21/18 15:00 Resp 20 07/21/18 15:00 BP 141/78 07/21/18 15:00 Pulse Ox 99 07/21/18 15:00 - Labs Result Diagrams: 07/17/18 22:48 07/17/18 22:48 Labs: Laboratory Results - last 24 hr 07/20/18 07/21/18 07/21/18 21:45 07:30 11:04 POC Glucose (mg/dL) 163 H 109 203 H 07/21/18 16:40 POC Glucose (mg/dL) 203 H Attending/Attestation - Attestation I have personally seen and examined this patient.: Yes I have fully participated in the care of the patient.: Yes I have reviewed all pertinent clinical information: Yes Notes (Text): Pt was seen and examined at bedside Agree with above note and assessment Pt with ESRD and Portacath in place As per pt, Portacath is infected Labs and radiology reviewed Ass: Portacath in place Plan: Blood culture ID consult c.w current mx f.u blood culture Plan d.w pt in detail Risk and benefit explained in detail.
[2018-07-18] MEDS: (Novolin R) Insulin Human Regular 100 units/ml vial SC SCH ×4 (08:30→21:51)
--- NOTE | 2018-07-18 10:07 | RAD ---
Chest x-ray two views HISTORY: Cough. COMPARISON: 01/19/2018 FINDINGS: Right chest wall port with tip extending into the right SVC. Mild venous congestion. Small nodular density in the right mid lung zone likely represents vessel on end. Cardiomegaly. Persistent retained catheter device projecting over the right upper lung zone laterally. Impression: Right chest wall port with tip extending into the right SVC. Mild venous congestion. Small nodular density in the right mid lung zone likely represents vessel on end. Cardiomegaly. Persistent retained catheter device projecting over the right upper lung zone laterally.
[2018-07-18] MEDS: Pantoprazole 40 mg EC Tab PO SCH (10:31)
[2018-07-18] MEDS: DiphenhydrAMINE 50 mg/ml Inj IVP PRN (11:20)
--- NOTE | 2018-07-18 15:47 | CP.PCM.HP ---
Past Patient History - Infectious Disease Hx of Infectious Diseases: None - Tetanus Immunizations Tetanus Immunization: Unknown - Past Medical History & Family History Past Medical History?: Yes - Past Social History Smoking Status: Never Smoked - CARDIAC Hx Cardiac Disorders: Yes Hx Congestive Heart Failure: Yes Hx Hypercholesterolemia: Yes Hx Hypertension: Yes Hx Peripheral Edema: Yes - PULMONARY Hx Respiratory Disorders: Yes Hx Asthma: Yes Hx Bronchitis: Yes Hx Pneumonia: Yes Hx Sleep Apnea: Yes - NEUROLOGICAL Hx Neurological Disorder: Yes Hx Seizures: Yes - HEENT Hx HEENT Problems: Yes Hx Cataracts: Yes (BOTH EYES) Hx Glaucoma: Yes (BOTH EYES) - RENAL Date of Last Dialysis Treatment: 07/17/18 - ENDOCRINE/METABOLIC Hx Endocrine Disorders: Yes Hx Hyperthyroidism: Yes Hx Hypothyroidism: Yes - HEMATOLOGICAL/ONCOLOGICAL Hx Blood Disorders: Yes Hx Anemia: Yes - INTEGUMENTARY Hx Dermatological Problems: Yes Other/Comment: DRY ITCHY SKIN ;multiple/generalized dark spots on skin. left toe blister - MUSCULOSKELETAL/RHEUMATOLOGICAL Hx Falls: Yes - GASTROINTESTINAL Hx Gastrointestinal Disorders: Yes Hx Gall Bladder Disease: Yes Hx Gastritis: Yes Hx Pancreatitis: Yes - GENITOURINARY/GYNECOLOGICAL Hx Genitourinary Disorders: No - PSYCHIATRIC Hx Substance Use: No - SURGICAL HISTORY Hx Surgeries: Yes Hx Cholecystectomy: Yes Hx Coronary Stent: Yes - ANESTHESIA Hx Anesthesia: Yes Hx Anesthesia Reactions: No Hx Malignant Hyperthermia: No Meds Allergies/Adverse Reactions: Allergies Allergy/AdvReac Type Severity Reaction Status Date / Time ketorolac tromethamine Allergy RASH Verified 07/17/18 21:15 [From Toradol] latex Allergy RASH Verified 07/17/18 21:15 morphine Allergy RASH Verified 07/17/18 21:15 tramadol Allergy RASH Verified 07/17/18 21:15 Physical Exam - Constitutional Appears: Well - Head Exam Head Exam: ATRAUMATIC, NORMAL INSPECTION, NORMOCEPHALIC - Eye Exam Eye Exam: EOMI, Normal appearance, PERRL Pupil Exam: NORMAL ACCOMODATION, PERRL - ENT Exam ENT Exam: Mucous Membranes Moist, Normal Exam - Neck Exam Neck exam: Positive for: Normal Inspection - Respiratory Exam Respiratory Exam: Decreased Breath Sounds - Cardiovascular Exam Cardiovascular Exam: REGULAR RHYTHM, +S1, +S2 - GI/Abdominal Exam GI & Abdominal Exam: Diminished Bowel Sounds, Soft - Rectal Exam Rectal Exam: Deferred Results - Vital Signs Recent Vital Signs: Last Vital Signs Temp 97.9 F 07/18/18 13:50 Pulse 105 H 07/18/18 14:48 Resp 16 07/18/18 14:48 BP 164/90 H 07/18/18 14:48 Pulse Ox 100 07/18/18 13:50 - Labs Result Diagrams: 07/17/18 22:48 07/17/18 22:48 Labs: Laboratory Results - last 24 hr 07/17/18 07/17/18 07/18/18 22:48 22:48 02:33 WBC 7.9 RBC 3.32 L Hgb 10.1 L Hct 31.7 L MCV 95.5 MCH 30.3 MCHC 31.7 L RDW 16.3 H Plt Count 370 D MPV 7.6 Neut % (Auto) 69.6 Lymph % (Auto) 15.4 L [place] % (Auto) 5.1 Eos % (Auto) 9.0 H Baso % (Auto) 0.9 Neut # (Auto) 5.5 Lymph # (Auto) 1.2 [place] # (Auto) 0.4 Eos # (Auto) 0.7 Baso # (Auto) 0.1 Sodium 137 Potassium 4.6 Chloride 97 L Carbon Dioxide 24 Anion Gap 20 BUN 35 H Creatinine 4.8 H Est GFR ( Amer) 13 Est GFR (Non-Af Amer) 11 POC Glucose (mg/dL) 65 Random Glucose 286 H Calcium 8.7 Total Bilirubin 0.5 AST 27 ALT 22 Alkaline Phosphatase 219 H D Total Protein 8.5 H Albumin 4.7 Globulin 3.8 Albumin/Globulin Ratio 1.3 Hep Bs Antigen 07/18/18 07/18/18 07/18/18 02:35 02:59 07:48 WBC RBC Hgb Hct MCV MCH MCHC RDW Plt Count MPV Neut % (Auto) Lymph % (Auto) [place] % (Auto) Eos % (Auto) Baso % (Auto) Neut # (Auto) Lymph # (Auto) [place] # (Auto) Eos # (Auto) Baso # (Auto) Sodium Potassium Chloride Carbon Dioxide Anion Gap BUN Creatinine Est GFR ( Amer) Est GFR (Non-Af Amer) POC Glucose (mg/dL) 64 L 86 200 H Random Glucose Calcium Total Bilirubin AST ALT Alkaline Phosphatase Total Protein Albumin Globulin Albumin/Globulin Ratio Hep Bs Antigen 07/18/18 07/18/18 11:37 13:17 WBC RBC Hgb Hct MCV MCH MCHC RDW Plt Count MPV Neut % (Auto) Lymph % (Auto) [place] % (Auto) Eos % (Auto) Baso % (Auto) Neut # (Auto) Lymph # (Auto) [place] # (Auto) Eos # (Auto) Baso # (Auto) Sodium Potassium Chloride Carbon Dioxide Anion Gap BUN Creatinine Est GFR ( Amer) Est GFR (Non-Af Amer) POC Glucose (mg/dL) 260 H Random Glucose Calcium Total Bilirubin AST ALT Alkaline Phosphatase Total Protein Albumin Globulin Albumin/Globulin Ratio Hep Bs Antigen Negative
--- NOTE | 2018-07-18 19:12 | CP.PCM.CON ---
History of Present Illness - History of Present Illness History of Present Illness: reasons for consult : ESRD on HD MWF AND SAT FLIUD OVER LOAD , P. EDEMA . CHF IN NEED FOR STAT HD ANEMIA OF CKD .. H/H STABLE PT WAS SEEN ON HD .. WELL KNOWN TO ME WITH MMP AND FREQEUNT ADMISSION Pt is a 32F with significant PMHx of DM, ESRD on HD, anemia of chronic disease, erosive gastritis, PUD & esophageal candidiasis who presents to for complaints of Left groin abscess and possible infected port-a-cath. Pt states that the abscess in her groin started about a week ago as a little bump. She states it's been painful to touch and she has had similar abscesses in the past. She admits to low grade fevers at home. As for her port, pt states she was at [facility] a few weeks ago and while accessing the port she was told purulent discharge was noted. She was told the port could not be used because it was infected. Pt has poor venous access and that's the reason the port was placed. Pt admits to having infected ports in the past that had to be replaced. Surgery called to evaluate. Currently, pt denies any complaints other than pain in the left groin around the abscess. Denies fevers/chills, nausea/vomiting, chest pain or SOB. PMHx: as listed PSHx: cholecystectomy, intra-abdominal abscess drainage, chest wall debridement SocialHx: denies smoking, EtOH/drugs All: as listed in EMR Review of Systems - Review of Systems All systems: reviewed and no additional remarkable complaints except (as per HPI) Past Patient History - Infectious Disease Hx of Infectious Diseases: None - Tetanus Immunizations Tetanus Immunization: Unknown - Past Medical History & Family History Past Medical History?: Yes - Past Social History Smoking Status: Never Smoked - CARDIAC Hx Cardiac Disorders: Yes Hx Congestive Heart Failure: Yes Hx Hypercholesterolemia: Yes Hx Hypertension: Yes Hx Peripheral Edema: Yes - PULMONARY Hx Respiratory Disorders: Yes Hx Asthma: Yes Hx Bronchitis: Yes Hx Pneumonia: Yes Hx Sleep Apnea: Yes - NEUROLOGICAL Hx Neurological Disorder: Yes Hx Seizures: Yes - HEENT Hx HEENT Problems: Yes Hx Cataracts: Yes (BOTH EYES) Hx Glaucoma: Yes (BOTH EYES) - RENAL Date of Last Dialysis Treatment: 07/17/18 - ENDOCRINE/METABOLIC Hx Endocrine Disorders: Yes Hx Hyperthyroidism: Yes Hx Hypothyroidism: Yes - HEMATOLOGICAL/ONCOLOGICAL Hx Blood Disorders: Yes Hx Anemia: Yes - INTEGUMENTARY Hx Dermatological Problems: Yes Other/Comment: DRY ITCHY SKIN ;multiple/generalized dark spots on skin. left toe blister - MUSCULOSKELETAL/RHEUMATOLOGICAL Hx Falls: Yes - GASTROINTESTINAL Hx Gastrointestinal Disorders: Yes Hx Gall Bladder Disease: Yes Hx Gastritis: Yes Hx Pancreatitis: Yes - GENITOURINARY/GYNECOLOGICAL Hx Genitourinary Disorders: No - PSYCHIATRIC Hx Substance Use: No - SURGICAL HISTORY Hx Surgeries: Yes Hx Cholecystectomy: Yes Hx Coronary Stent: Yes - ANESTHESIA Hx Anesthesia: Yes Hx Anesthesia Reactions: No Hx Malignant Hyperthermia: No Meds Allergies/Adverse Reactions: Allergies Allergy/AdvReac Type Severity Reaction Status Date / Time ketorolac tromethamine Allergy RASH Verified 07/17/18 21:15 [From Toradol] latex Allergy RASH Verified 07/17/18 21:15 morphine Allergy RASH Verified 07/17/18 21:15 tramadol Allergy RASH Verified 07/17/18 21:15 - Medications Medications: Current Medications Calcium Acetate (Phoslo) 667 mg PO TID [facility] Last Admin: 07/18/18 17:13 Dose: 667 mg Clonidine HCl (Catapres) 0.3 mg PO BID [facility] Last Admin: 07/18/18 17:14 Dose: 0.3 mg Diphenhydramine HCl (Benadryl) 50 mg IVP TTS PRN PRN Reason: itchiness Last Admin: 07/18/18 11:20 Dose: 50 mg Diphenhydramine HCl (Benadryl) 25 mg IM Q4 PRN PRN Reason: Itching / Pruritus Docusate Sodium (Colace) 100 mg PO TID [facility] Last Admin: 07/18/18 17:14 Dose: 100 mg Ergocalciferol (Drisdol 50,000 Intl Units Cap) 1 cap PO QWK [facility] Gabapentin (Neurontin) 300 mg PO BID [facility] Last Admin: 07/18/18 17:14 Dose: 300 mg Heparin Sodium (Porcine) (Heparin) 5,000 units SC DAILY [facility] Last Admin: 07/18/18 10:31 Dose: Not Given Hydromorphone HCl (Dilaudid) 2 mg IM Q4H PRN PRN Reason: Pain, Mild (1-3) Last Admin: 07/18/18 18:35 Dose: 2 mg Vancomycin HCl 1 gm/ Sodium (Chloride) 250 mls @ 166.7 mls/hr IVPB TTS@1600 [facility]; Protocol Last Admin: 07/18/18 16:00 Dose: Not Given Insulin Glargine (Lantus) 25 unit SC HS [facility] Insulin Human Regular (Novolin R) 0 unit SC ACHS [facility]; Protocol Last Admin: 07/18/18 17:31 Dose: 2 units Metoclopramide HCl (Reglan) 10 mg IM Q8 PRN PRN Reason: Nausea/Vomiting Last Admin: 07/18/18 18:35 Dose: 10 mg Ondansetron HCl (Zofran Odt) 8 mg PO Q6 PRN PRN Reason: Nausea/Vomiting Last Admin: 07/18/18 15:07 Dose: 8 mg Pantoprazole Sodium (Protonix Ec Tab) 40 mg PO DAILY [facility] Last Admin: 07/18/18 10:31 Dose: Not Given Results - Vital Signs Recent Vital Signs: Last Vital Signs Temp 98.8 F 07/18/18 16:00 Pulse 111 H 07/18/18 16:00 Resp 20 07/18/18 16:00 BP 144/76 07/18/18 16:00 Pulse Ox 96 07/18/18 16:00 - Labs Result Diagrams: 07/17/18 22:48 07/17/18 22:48 Labs: Laboratory Results - last 24 hr 07/17/18 07/17/18 07/18/18 22:48 22:48 02:33 WBC 7.9 RBC 3.32 L Hgb 10.1 L Hct 31.7 L MCV 95.5 MCH 30.3 MCHC 31.7 L RDW 16.3 H Plt Count 370 D MPV 7.6 Neut % (Auto) 69.6 Lymph % (Auto) 15.4 L [place] % (Auto) 5.1 Eos % (Auto) 9.0 H Baso % (Auto) 0.9 Neut # (Auto) 5.5 Lymph # (Auto) 1.2 [place] # (Auto) 0.4 Eos # (Auto) 0.7 Baso # (Auto) 0.1 Sodium 137 Potassium 4.6 Chloride 97 L Carbon Dioxide 24 Anion Gap 20 BUN 35 H Creatinine 4.8 H Est GFR ( Amer) 13 Est GFR (Non-Af Amer) 11 POC Glucose (mg/dL) 65 Random Glucose 286 H Calcium 8.7 Total Bilirubin 0.5 AST 27 ALT 22 Alkaline Phosphatase 219 H D Total Protein 8.5 H Albumin 4.7 Globulin 3.8 Albumin/Globulin Ratio 1.3 Hep Bs Antigen 07/18/18 07/18/18 07/18/18 02:35 02:59 07:48 WBC RBC Hgb Hct MCV MCH MCHC RDW Plt Count MPV Neut % (Auto) Lymph % (Auto) [place] % (Auto) Eos % (Auto) Baso % (Auto) Neut # (Auto) Lymph # (Auto) [place] # (Auto) Eos # (Auto) Baso # (Auto) Sodium Potassium Chloride Carbon Dioxide Anion Gap BUN Creatinine Est GFR ( Amer) Est GFR (Non-Af Amer) POC Glucose (mg/dL) 64 L 86 200 H Random Glucose Calcium Total Bilirubin AST ALT Alkaline Phosphatase Total Protein Albumin Globulin Albumin/Globulin Ratio Hep Bs Antigen 07/18/18 07/18/18 07/18/18 11:37 13:17 16:24 WBC RBC Hgb Hct MCV MCH MCHC RDW Plt Count MPV Neut % (Auto) Lymph % (Auto) [place] % (Auto) Eos % (Auto) Baso % (Auto) Neut # (Auto) Lymph # (Auto) [place] # (Auto) Eos # (Auto) Baso # (Auto) Sodium Potassium Chloride Carbon Dioxide Anion Gap BUN Creatinine Est GFR ( Amer) Est GFR (Non-Af Amer) POC Glucose (mg/dL) 260 H 208 H Random Glucose Calcium Total Bilirubin AST ALT Alkaline Phosphatase Total Protein Albumin Globulin Albumin/Globulin Ratio Hep Bs Antigen Negative Assessment & Plan - Assessment and Plan (Free Text) Assessment: ESRD ON HD M W F .. ON HD NOW P.EDEMA .. FLUID OVER LOAD .. CHF .. ON HD MCKOY NOW TO UF 3 L DEMETRIS ELECTROLYTES ABN .. OK ANEMIA OF CKD .. H/H STABLE MMP P : HD MCKOY NOW .. PT IS GETING IT RENAL AND DIABETIC DIET .. 2 G NA .. 2 G K .. 100 G PROTIEN .. FR 1000 CC/D DIETARY CONSULT AND COUNSELLING C/O CURRENT MEDS NEXT HD SAT - Date & Time Date: 07/18/18 Time: 13:00
--- NOTE | 2018-07-18 20:09 | CP.PCM.CON ---
History of Present Illness - History of Present Illness History of Present Illness: 32F with significant PMHx of DM, ESRD on HD, anemia of chronic disease, erosive gastritis, PUD & esophageal candidiasis who presents to for complaints of Left groin abscess and possible infected port-a-cath. Pt states that the abscess in her groin started about a week ago as a little bump. Pt states she was at [facility] [place] a few weeks ago and while accessing the port she was told purulent discharge was noted. She was told the port could not be used because it was infected. Pt has poor venous access and that's the reason the port was placed. groin abscess apparently resolved No pus seen on right chest port site PMHx: as listed PSHx: cholecystectomy, intra-abdominal abscess drainage, chest wall debridement SocialHx: denies smoking, EtOH/drugs All: as listed in EMR Past Patient History - Infectious Disease Hx of Infectious Diseases: None - Tetanus Immunizations Tetanus Immunization: Unknown - Past Medical History & Family History Past Medical History?: Yes - Past Social History Smoking Status: Never Smoked - CARDIAC Hx Cardiac Disorders: Yes Hx Congestive Heart Failure: Yes Hx Hypercholesterolemia: Yes Hx Hypertension: Yes Hx Peripheral Edema: Yes - PULMONARY Hx Respiratory Disorders: Yes Hx Asthma: Yes Hx Bronchitis: Yes Hx Pneumonia: Yes Hx Sleep Apnea: Yes - NEUROLOGICAL Hx Neurological Disorder: Yes Hx Seizures: Yes - HEENT Hx HEENT Problems: Yes Hx Cataracts: Yes (BOTH EYES) Hx Glaucoma: Yes (BOTH EYES) - RENAL Date of Last Dialysis Treatment: 07/17/18 - ENDOCRINE/METABOLIC Hx Endocrine Disorders: Yes Hx Hyperthyroidism: Yes Hx Hypothyroidism: Yes - HEMATOLOGICAL/ONCOLOGICAL Hx Blood Disorders: Yes Hx Anemia: Yes - INTEGUMENTARY Hx Dermatological Problems: Yes Other/Comment: DRY ITCHY SKIN ;multiple/generalized dark spots on skin. left toe blister - MUSCULOSKELETAL/RHEUMATOLOGICAL Hx Falls: Yes - GASTROINTESTINAL Hx Gastrointestinal Disorders: Yes Hx Gall Bladder Disease: Yes Hx Gastritis: Yes Hx Pancreatitis: Yes - GENITOURINARY/GYNECOLOGICAL Hx Genitourinary Disorders: No - PSYCHIATRIC Hx Substance Use: No - SURGICAL HISTORY Hx Surgeries: Yes Hx Cholecystectomy: Yes Hx Coronary Stent: Yes - ANESTHESIA Hx Anesthesia: Yes Hx Anesthesia Reactions: No Hx Malignant Hyperthermia: No Meds Allergies/Adverse Reactions: Allergies Allergy/AdvReac Type Severity Reaction Status Date / Time ketorolac tromethamine Allergy RASH Verified 07/17/18 21:15 [From Toradol] latex Allergy RASH Verified 07/17/18 21:15 morphine Allergy RASH Verified 07/17/18 21:15 tramadol Allergy RASH Verified 07/17/18 21:15 - Medications Medications: Current Medications Calcium Acetate (Phoslo) 667 mg PO TID [facility] Last Admin: 07/18/18 17:13 Dose: 667 mg Clonidine HCl (Catapres) 0.3 mg PO BID [facility] Last Admin: 07/18/18 17:14 Dose: 0.3 mg Diphenhydramine HCl (Benadryl) 50 mg IVP TTS PRN PRN Reason: itchiness Last Admin: 07/18/18 11:20 Dose: 50 mg Diphenhydramine HCl (Benadryl) 25 mg IM Q4 PRN PRN Reason: Itching / Pruritus Docusate Sodium (Colace) 100 mg PO TID [facility] Last Admin: 07/18/18 17:14 Dose: 100 mg Ergocalciferol (Drisdol 50,000 Intl Units Cap) 1 cap PO QWK [facility] Gabapentin (Neurontin) 300 mg PO BID [facility] Last Admin: 07/18/18 17:14 Dose: 300 mg Heparin Sodium (Porcine) (Heparin) 5,000 units SC DAILY [facility] Last Admin: 07/18/18 10:31 Dose: Not Given Hydromorphone HCl (Dilaudid) 2 mg IM Q4H PRN PRN Reason: Pain, Mild (1-3) Last Admin: 07/18/18 18:35 Dose: 2 mg Vancomycin HCl 1 gm/ Sodium (Chloride) 250 mls @ 166.7 mls/hr IVPB TTS@1600 [facility]; Protocol Last Admin: 07/18/18 16:00 Dose: Not Given Insulin Glargine (Lantus) 25 unit SC HS [facility] Insulin Human Regular (Novolin R) 0 unit SC ACHS [facility]; Protocol Last Admin: 07/18/18 17:31 Dose: 2 units Metoclopramide HCl (Reglan) 10 mg IM Q8 PRN PRN Reason: Nausea/Vomiting Last Admin: 07/18/18 18:35 Dose: 10 mg Ondansetron HCl (Zofran Odt) 8 mg PO Q6 PRN PRN Reason: Nausea/Vomiting Last Admin: 07/18/18 15:07 Dose: 8 mg Pantoprazole Sodium (Protonix Ec Tab) 40 mg PO DAILY [facility] Last Admin: 07/18/18 10:31 Dose: Not Given Results - Vital Signs Recent Vital Signs: Last Vital Signs Temp 98.8 F 07/18/18 16:00 Pulse 111 H 07/18/18 16:00 Resp 20 07/18/18 16:00 BP 144/76 07/18/18 16:00 Pulse Ox 96 07/18/18 16:00 - Labs Result Diagrams: 07/17/18 22:48 07/17/18 22:48 Labs: Laboratory Results - last 24 hr 07/17/18 07/17/18 07/18/18 22:48 22:48 02:33 WBC 7.9 RBC 3.32 L Hgb 10.1 L Hct 31.7 L MCV 95.5 MCH 30.3 MCHC 31.7 L RDW 16.3 H Plt Count 370 D MPV 7.6 Neut % (Auto) 69.6 Lymph % (Auto) 15.4 L [place] % (Auto) 5.1 Eos % (Auto) 9.0 H Baso % (Auto) 0.9 Neut # (Auto) 5.5 Lymph # (Auto) 1.2 [place] # (Auto) 0.4 Eos # (Auto) 0.7 Baso # (Auto) 0.1 Sodium 137 Potassium 4.6 Chloride 97 L Carbon Dioxide 24 Anion Gap 20 BUN 35 H Creatinine 4.8 H Est GFR ( Amer) 13 Est GFR (Non-Af Amer) 11 POC Glucose (mg/dL) 65 Random Glucose 286 H Calcium 8.7 Total Bilirubin 0.5 AST 27 ALT 22 Alkaline Phosphatase 219 H D Total Protein 8.5 H Albumin 4.7 Globulin 3.8 Albumin/Globulin Ratio 1.3 Hep Bs Antigen 07/18/18 07/18/18 07/18/18 02:35 02:59 07:48 WBC RBC Hgb Hct MCV MCH MCHC RDW Plt Count MPV Neut % (Auto) Lymph % (Auto) [place] % (Auto) Eos % (Auto) Baso % (Auto) Neut # (Auto) Lymph # (Auto) [place] # (Auto) Eos # (Auto) Baso # (Auto) Sodium Potassium Chloride Carbon Dioxide Anion Gap BUN Creatinine Est GFR ( Amer) Est GFR (Non-Af Amer) POC Glucose (mg/dL) 64 L 86 200 H Random Glucose Calcium Total Bilirubin AST ALT Alkaline Phosphatase Total Protein Albumin Globulin Albumin/Globulin Ratio Hep Bs Antigen 07/18/18 07/18/18 07/18/18 11:37 13:17 16:24 WBC RBC Hgb Hct MCV MCH MCHC RDW Plt Count MPV Neut % (Auto) Lymph % (Auto) [place] % (Auto) Eos % (Auto) Baso % (Auto) Neut # (Auto) Lymph # (Auto) [place] # (Auto) Eos # (Auto) Baso # (Auto) Sodium Potassium Chloride Carbon Dioxide Anion Gap BUN Creatinine Est GFR ( Amer) Est GFR (Non-Af Amer) POC Glucose (mg/dL) 260 H 208 H Random Glucose Calcium Total Bilirubin AST ALT Alkaline Phosphatase Total Protein Albumin Globulin Albumin/Globulin Ratio Hep Bs Antigen Negative Assessment & Plan - Assessment and Plan (Free Text) Assessment: consider accessing right port to see if port is viable and or infected reccomend routine blood cultures cont iv antibiotics as ordered
[2018-07-18] MEDS: (Lantus) Insulin Glargine, Recombinant SC SCH (21:49)
[2018-07-18] MEDS: DiphenhydrAMINE 50 mg/ml Inj IM PRN (22:54)
[2018-07-19] MEDS: Vitamins A & D Oint UD Foilpak TOP SCH ×3 (00:05→17:08)
[2018-07-19] MEDS: DiphenhydrAMINE 50 mg/ml Inj IM PRN (05:48)
--- NOTE | 2018-07-19 08:27 | CP.PCM.PN ---
<Jone Samuel - Last Filed: 07/19/18 08:25> Subjective - Date & Time of Evaluation Date of Evaluation: 07/19/18 Time of Evaluation: 07:00 - Subjective Subjective: Surgery Progress note. Dr. Green service. Pt seen and examined at bedside. No acute events overnight. No N/V/D. No F/C. No new complaints. Right chest port accessed without any issues, aspirated without any purulent material noted, flushes without any resistance. Objective - Vital Signs/Intake and Output Vital Signs (last 24 hours): Temp Pulse Resp BP Pulse Ox 97.3 F L 93 H 20 125/82 99 07/19/18 00:00 07/19/18 00:00 07/19/18 00:00 07/19/18 00:00 07/19/18 00:00 - Medications Medications: Current Medications Calcium Acetate (Phoslo) 667 mg PO TID [facility] Last Admin: 07/18/18 17:13 Dose: 667 mg Clonidine HCl (Catapres) 0.3 mg PO BID [facility] Last Admin: 07/18/18 17:14 Dose: 0.3 mg Diphenhydramine HCl (Benadryl) 50 mg IVP TTS PRN PRN Reason: itchiness Last Admin: 07/18/18 11:20 Dose: 50 mg Diphenhydramine HCl (Benadryl) 25 mg IM Q4 PRN PRN Reason: Itching / Pruritus Last Admin: 07/19/18 05:48 Dose: 25 mg Docusate Sodium (Colace) 100 mg PO TID [facility] Last Admin: 07/18/18 17:14 Dose: 100 mg Ergocalciferol (Drisdol 50,000 Intl Units Cap) 1 cap PO QWK [facility] Gabapentin (Neurontin) 300 mg PO BID [facility] Last Admin: 07/18/18 17:14 Dose: 300 mg Heparin Sodium (Porcine) (Heparin) 5,000 units SC DAILY [facility] Last Admin: 07/18/18 10:31 Dose: Not Given Hydromorphone HCl (Dilaudid) 2 mg IM Q4H PRN PRN Reason: Pain, Mild (1-3) Last Admin: 07/19/18 05:49 Dose: 2 mg Vancomycin HCl 1 gm/ Sodium (Chloride) 250 mls @ 166.7 mls/hr IVPB TTS@1600 [facility]; Protocol Last Admin: 07/18/18 16:00 Dose: Not Given Insulin Glargine (Lantus) 25 unit SC HS [facility] Last Admin: 07/18/18 21:49 Dose: 25 units Insulin Human Regular (Novolin R) 0 unit SC ACHS [facility]; Protocol Last Admin: 07/18/18 21:51 Dose: Not Given Metoclopramide HCl (Reglan) 10 mg IM Q8 PRN PRN Reason: Nausea/Vomiting Last Admin: 07/18/18 18:35 Dose: 10 mg Ondansetron HCl (Zofran Odt) 8 mg PO Q6 PRN PRN Reason: Nausea/Vomiting Last Admin: 07/19/18 02:13 Dose: 8 mg Pantoprazole Sodium (Protonix Ec Tab) 40 mg PO DAILY [facility] Last Admin: 07/18/18 10:31 Dose: Not Given Vitamin A (Vitamin A & D Oint Ud Foilpak) 1 ea TOP BID [facility] Last Admin: 07/19/18 00:05 Dose: 1 ea - Labs Labs: 07/17/18 22:48 07/17/18 22:48 - Constitutional Appears: Well, No Acute Distress - Head Exam Head Exam: ATRAUMATIC, NORMAL INSPECTION, NORMOCEPHALIC - Eye Exam Eye Exam: EOMI, Normal appearance - ENT Exam ENT Exam: Mucous Membranes Moist - Cardiovascular Exam Cardiovascular Exam: absent: JVD Additional comments: right chest port without any skin changes noted. port accessed, aspirated without any purulent material noted. Flushed without any resistance. - GI/Abdominal Exam GI & Abdominal Exam: Soft. absent: Distended, Firm, Guarding, Tenderness, Mass, Rebound - Extremities Exam Extremities Exam: Normal Inspection - Neurological Exam Neurological Exam: Alert, Awake, Oriented x3 - Psychiatric Exam Psychiatric exam: Normal Affect, Normal Mood - Skin Skin Exam: Dry, Intact, Normal Color, Warm Assessment and Plan - Assessment and Plan (Free Text) Assessment: 32yo F here with left groin abscess (improved). Surgery consulted for possible infected port-a-cath - Port accessed with no concerning findings. aspirated and flushed without any issues. Plan: - No need for any acute surgical intervention - Please contact surgery with any questions or concerns - Okay to access and use port Further recs as per Dr. Norma Samuel PGY2 Surgery <Yoel Green B - Last Filed: 07/21/18 19:12> Objective - Vital Signs/Intake and Output Vital Signs (last 24 hours): Temp Pulse Resp BP Pulse Ox 99.3 F 82 20 141/78 99 07/21/18 15:00 07/21/18 15:00 07/21/18 15:00 07/21/18 15:00 07/21/18 15:00 Intake and Output: 07/21/18 07/22/18 18:59 06:59 Intake Total 620 Balance 620 - Medications Medications: Current Medications Calcium Acetate (Phoslo) 667 mg PO TID [facility] Last Admin: 07/21/18 17:31 Dose: 667 mg Clonidine HCl (Catapres) 0.2 mg PO BID [facility] Last Admin: 07/21/18 17:31 Dose: 0.2 mg Diphenhydramine HCl (Benadryl) 50 mg IVP TTS PRN PRN Reason: itchiness Last Admin: 07/20/18 08:45 Dose: 50 mg Diphenhydramine HCl (Benadryl) 25 mg IVP Q4 PRN PRN Reason: Itching / Pruritus Last Admin: 07/21/18 17:29 Dose: 25 mg Docusate Sodium (Colace) 100 mg PO TID [facility] Last Admin: 07/21/18 17:31 Dose: 100 mg Ergocalciferol (Drisdol 50,000 Intl Units Cap) 1 cap PO QWK [facility] Last Admin: 07/19/18 10:10 Dose: 1 cap Gabapentin (Neurontin) 300 mg PO BID [facility] Last Admin: 07/21/18 17:32 Dose: 300 mg Hydromorphone HCl (Dilaudid) 2 mg IVP Q4 PRN PRN Reason: Pain, moderate (4-7) Last Admin: 07/21/18 17:30 Dose: 2 mg Vancomycin HCl 1 gm/ Sodium (Chloride) 250 mls @ 166.7 mls/hr IVPB TTS@1600 [facility]; Protocol Last Admin: 07/20/18 16:30 Dose: 166.7 mls/hr Insulin Glargine (Lantus) 25 unit SC HS [facility] Last Admin: 07/20/18 21:15 Dose: 25 units Insulin Human Regular (Novolin R) 0 unit SC ACHS [facility]; Protocol Last Admin: 07/21/18 16:30 Dose: 2 units Metoclopramide HCl (Reglan) 10 mg IM Q8 PRN PRN Reason: Nausea/Vomiting Last Admin: 07/18/18 18:35 Dose: 10 mg Mupirocin (Bactroban Ointment) 0 gm TOP BID [facility] Last Admin: 07/21/18 17:28 Dose: 1 applic Ondansetron HCl (Zofran Odt) 8 mg PO Q6 PRN PRN Reason: Nausea/Vomiting Last Admin: 07/19/18 02:13 Dose: 8 mg Pantoprazole Sodium (Protonix Ec Tab) 40 mg PO DAILY [facility] Last Admin: 07/21/18 09:00 Dose: 40 mg Vitamin A (Vitamin A & D Oint Ud Foilpak) 1 ea TOP BID [facility] Last Admin: 07/21/18 12:29 Dose: 1 ea Vitamin B Complex/Vit C/Folic Acid (Nephro-Vamshi) 1 tab PO 0800 [facility] Last Admin: 07/21/18 08:29 Dose: 1 tab - Labs Labs: 07/17/18 22:48 07/17/18 22:48 Attending/Attestation - Attestation I have personally seen and examined this patient.: Yes I have fully participated in the care of the patient.: Yes I have reviewed all pertinent clinical information, including history, physical exam and plan: Yes Notes (Text): Pt was seen and examined at bedside Agree with above note and assessment Pt with ESRD and Portacath in place Portacath is functioning. No clinical signs of infection or cellulitis Blood culture pending ID consult appreciated At present, Portacath does not need removal We will f.u Plan d.w pt and PMD in detail Risk and benefit explained in detail.
[2018-07-19] MEDS: (Novolin R) Insulin Human Regular 100 units/ml vial SC SCH ×5 (09:03→21:58)
[2018-07-19] MEDS: Pantoprazole 40 mg EC Tab PO SCH (09:03)
[2018-07-19] MEDS: Ergocalciferol 50,000 Intl Units Cap PO SCH (10:10)
[2018-07-19] MEDS: DiphenhydrAMINE 50 mg/ml Inj IVP PRN ×3 (11:30→20:27)
--- NOTE | 2018-07-19 14:30 | CP.PCM.PN ---
Subjective - Date & Time of Evaluation Date of Evaluation: 07/19/18 Time of Evaluation: 08:45 - Subjective Subjective: clinically same Objective - Vital Signs/Intake and Output Vital Signs (last 24 hours): Temp Pulse Resp BP Pulse Ox 99.1 F 95 H 20 135/81 100 07/19/18 08:45 07/19/18 08:45 07/19/18 08:45 07/19/18 08:45 07/19/18 08:45 - Medications Medications: Current Medications Calcium Acetate (Phoslo) 667 mg PO TID [facility] Last Admin: 07/19/18 14:05 Dose: 667 mg Clonidine HCl (Catapres) 0.3 mg PO BID [facility] Last Admin: 07/19/18 09:02 Dose: 0.3 mg Diphenhydramine HCl (Benadryl) 50 mg IVP TTS PRN PRN Reason: itchiness Last Admin: 07/18/18 11:20 Dose: 50 mg Diphenhydramine HCl (Benadryl) 25 mg IVP Q4 PRN PRN Reason: Itching / Pruritus Last Admin: 07/19/18 11:30 Dose: 25 mg Docusate Sodium (Colace) 100 mg PO TID [facility] Last Admin: 07/19/18 14:05 Dose: 100 mg Ergocalciferol (Drisdol 50,000 Intl Units Cap) 1 cap PO QWK [facility] Last Admin: 07/19/18 10:10 Dose: 1 cap Gabapentin (Neurontin) 300 mg PO BID [facility] Last Admin: 07/19/18 09:02 Dose: 300 mg Heparin Sodium (Porcine) (Heparin) 5,000 units SC DAILY [facility] Last Admin: 07/19/18 09:07 Dose: Not Given Hydromorphone HCl (Dilaudid) 2 mg IVP Q4 PRN PRN Reason: Pain, moderate (4-7) Last Admin: 07/19/18 11:29 Dose: 2 mg Vancomycin HCl 1 gm/ Sodium (Chloride) 250 mls @ 166.7 mls/hr IVPB TTS@1600 [facility]; Protocol Last Admin: 07/18/18 16:00 Dose: Not Given Insulin Glargine (Lantus) 25 unit SC HS [facility] Last Admin: 07/18/18 21:49 Dose: 25 units Insulin Human Regular (Novolin R) 0 unit SC ACHS [facility]; Protocol Last Admin: 07/19/18 13:00 Dose: 4 units Metoclopramide HCl (Reglan) 10 mg IM Q8 PRN PRN Reason: Nausea/Vomiting Last Admin: 07/18/18 18:35 Dose: 10 mg Ondansetron HCl (Zofran Odt) 8 mg PO Q6 PRN PRN Reason: Nausea/Vomiting Last Admin: 07/19/18 02:13 Dose: 8 mg Pantoprazole Sodium (Protonix Ec Tab) 40 mg PO DAILY [facility] Last Admin: 07/19/18 09:03 Dose: 40 mg Vitamin A (Vitamin A & D Oint Ud Foilpak) 1 ea TOP BID [facility] Last Admin: 07/19/18 09:02 Dose: 1 ea - Labs Labs: 07/17/18 22:48 07/17/18 22:48 - Constitutional Appears: Well - Head Exam Head Exam: ATRAUMATIC, NORMAL INSPECTION, NORMOCEPHALIC - Eye Exam Eye Exam: EOMI, Normal appearance, PERRL Pupil Exam: NORMAL ACCOMODATION, PERRL - ENT Exam ENT Exam: Mucous Membranes Moist, Normal Exam - Neck Exam Neck Exam: Full ROM, Normal Inspection. absent: Lymphadenopathy - Cardiovascular Exam Cardiovascular Exam: REGULAR RHYTHM, +S1, +S2 - GI/Abdominal Exam GI & Abdominal Exam: Soft, Diminished Bowel Sounds - Rectal Exam Rectal Exam: Deferred
--- NOTE | 2018-07-19 17:49 | CP.PCM.PN ---
Subjective - Date & Time of Evaluation Date of Evaluation: 07/19/18 Time of Evaluation: 09:00 - Subjective Subjective: catheter access was uneventful no pus blood c/s neg on IV Vanco Objective - Vital Signs/Intake and Output Vital Signs (last 24 hours): Temp Pulse Resp BP Pulse Ox 98.7 F 99 H 20 122/82 95 07/19/18 16:00 07/19/18 16:00 07/19/18 16:00 07/19/18 16:00 07/19/18 16:00 Intake and Output: 07/19/18 07/19/18 06:59 18:59 Intake Total 500 Balance 500 - Medications Medications: Current Medications Calcium Acetate (Phoslo) 667 mg PO TID [facility] Last Admin: 07/19/18 14:05 Dose: 667 mg Clonidine HCl (Catapres) 0.3 mg PO BID [facility] Last Admin: 07/19/18 17:09 Dose: 0.3 mg Diphenhydramine HCl (Benadryl) 50 mg IVP TTS PRN PRN Reason: itchiness Last Admin: 07/18/18 11:20 Dose: 50 mg Diphenhydramine HCl (Benadryl) 25 mg IVP Q4 PRN PRN Reason: Itching / Pruritus Last Admin: 07/19/18 16:39 Dose: 25 mg Docusate Sodium (Colace) 100 mg PO TID [facility] Last Admin: 07/19/18 17:09 Dose: 100 mg Ergocalciferol (Drisdol 50,000 Intl Units Cap) 1 cap PO QWK [facility] Last Admin: 07/19/18 10:10 Dose: 1 cap Gabapentin (Neurontin) 300 mg PO BID [facility] Last Admin: 07/19/18 17:08 Dose: 300 mg Heparin Sodium (Porcine) (Heparin) 5,000 units SC DAILY [facility] Last Admin: 07/19/18 09:07 Dose: Not Given Hydromorphone HCl (Dilaudid) 2 mg IVP Q4 PRN PRN Reason: Pain, moderate (4-7) Last Admin: 07/19/18 16:28 Dose: 2 mg Vancomycin HCl 1 gm/ Sodium (Chloride) 250 mls @ 166.7 mls/hr IVPB TTS@1600 [facility]; Protocol Last Admin: 07/18/18 16:00 Dose: Not Given Insulin Glargine (Lantus) 25 unit SC [facility] Last Admin: 07/18/18 21:49 Dose: 25 units Insulin Human Regular (Novolin R) 0 unit SC [facility]; Protocol Last Admin: 07/19/18 16:32 Dose: 1 units Metoclopramide HCl (Reglan) 10 mg IM Q8 PRN PRN Reason: Nausea/Vomiting Last Admin: 07/18/18 18:35 Dose: 10 mg Ondansetron HCl (Zofran Odt) 8 mg PO Q6 PRN PRN Reason: Nausea/Vomiting Last Admin: 07/19/18 02:13 Dose: 8 mg Pantoprazole Sodium (Protonix Ec Tab) 40 mg PO DAILY [facility] Last Admin: 07/19/18 09:03 Dose: 40 mg Vitamin A (Vitamin A & D Oint Ud Foilpak) 1 ea TOP BID [facility] Last Admin: 07/19/18 17:08 Dose: 1 ea - Labs Labs: 07/17/18 22:48 07/17/18 22:48 - Constitutional Appears: Non-toxic, Older Than Stated Age, Chronically Ill - Head Exam Head Exam: NORMOCEPHALIC - Eye Exam Eye Exam: absent: Scleral icterus - Neck Exam Neck Exam: absent: Lymphadenopathy - Respiratory Exam Respiratory Exam: Decreased Breath Sounds - Cardiovascular Exam Cardiovascular Exam: REGULAR RHYTHM - GI/Abdominal Exam GI & Abdominal Exam: Distended, Soft Assessment and Plan (1) Abscess of left groin Status: Acute (2) ESRD (end stage renal disease) on dialysis Status: Acute - Assessment and Plan (Free Text) Assessment: cont iv antibiotics wound care
--- NOTE | 2018-07-19 20:51 | CP.PCM.PN ---
Subjective - Date & Time of Evaluation Date of Evaluation: 07/19/18 Time of Evaluation: 14:00 - Subjective Subjective: SEEN ON RENAL F/U A & O .. APPEARS [facility] RECIEVED HER HD YESTERDAY WITH UF 3 L . TOLERATED WELL Objective - Vital Signs/Intake and Output Vital Signs (last 24 hours): Temp Pulse Resp BP Pulse Ox 98.7 F 99 H 20 122/82 95 07/19/18 16:00 07/19/18 16:00 07/19/18 16:00 07/19/18 16:00 07/19/18 16:00 Intake and Output: 07/19/18 07/20/18 18:59 06:59 Intake Total 500 Balance 500 - Medications Medications: Current Medications Calcium Acetate (Phoslo) 667 mg PO TID [facility] Last Admin: 07/19/18 14:05 Dose: 667 mg Clonidine HCl (Catapres) 0.3 mg PO BID [facility] Last Admin: 07/19/18 17:09 Dose: 0.3 mg Diphenhydramine HCl (Benadryl) 50 mg IVP TTS PRN PRN Reason: itchiness Last Admin: 07/18/18 11:20 Dose: 50 mg Diphenhydramine HCl (Benadryl) 25 mg IVP Q4 PRN PRN Reason: Itching / Pruritus Last Admin: 07/19/18 20:27 Dose: 25 mg Docusate Sodium (Colace) 100 mg PO TID [facility] Last Admin: 07/19/18 17:09 Dose: 100 mg Ergocalciferol (Drisdol 50,000 Intl Units Cap) 1 cap PO QWK [facility] Last Admin: 07/19/18 10:10 Dose: 1 cap Gabapentin (Neurontin) 300 mg PO BID [facility] Last Admin: 07/19/18 17:08 Dose: 300 mg Heparin Sodium (Porcine) (Heparin) 5,000 units SC DAILY [facility] Last Admin: 07/19/18 09:07 Dose: Not Given Hydromorphone HCl (Dilaudid) 2 mg IVP Q4 PRN PRN Reason: Pain, moderate (4-7) Last Admin: 07/19/18 20:28 Dose: 2 mg Vancomycin HCl 1 gm/ Sodium (Chloride) 250 mls @ 166.7 mls/hr IVPB TTS@1600 [facility]; Protocol Last Admin: 07/18/18 16:00 Dose: Not Given Insulin Glargine (Lantus) 25 unit SC HS [facility] Last Admin: 07/18/18 21:49 Dose: 25 units Insulin Human Regular (Novolin R) 0 unit SC ACHS [facility]; Protocol Last Admin: 07/19/18 16:32 Dose: 1 units Metoclopramide HCl (Reglan) 10 mg IM Q8 PRN PRN Reason: Nausea/Vomiting Last Admin: 07/18/18 18:35 Dose: 10 mg Ondansetron HCl (Zofran Odt) 8 mg PO Q6 PRN PRN Reason: Nausea/Vomiting Last Admin: 07/19/18 02:13 Dose: 8 mg Pantoprazole Sodium (Protonix Ec Tab) 40 mg PO DAILY [facility] Last Admin: 07/19/18 09:03 Dose: 40 mg Vitamin A (Vitamin A & D Oint Ud Foilpak) 1 ea TOP BID [facility] Last Admin: 07/19/18 17:08 Dose: 1 ea - Labs Labs: 07/17/18 22:48 07/17/18 22:48 Assessment and Plan - Assessment and Plan (Free Text) Assessment: ESRD ON HD .. RECIEVED HER HD YESTERDAY .. NEXT HD TOMORROW SAT ANEMIA OF CKD .. H/H STABLE ELECTROLYTES OK MMP P : C/O CURRENT CARE C/O PRESENT MANAGEMENT C/O SAME MEDS
[2018-07-19] MEDS: (Lantus) Insulin Glargine, Recombinant SC SCH (21:18)
[2018-07-20] MEDS: DiphenhydrAMINE 50 mg/ml Inj IVP PRN ×6 (00:30→21:00)
[2018-07-20] MEDS: (Novolin R) Insulin Human Regular 100 units/ml vial SC SCH ×4 (08:21→22:05)
[2018-07-20] MEDS: Multivitamin Vitamin B Complex (Nephro-Vite) Tab PO SCH (08:21)
[2018-07-20] MEDS: Pantoprazole 40 mg EC Tab PO SCH ×2 (10:38→13:08)
[2018-07-20] MEDS: Vitamins A & D Oint UD Foilpak TOP SCH ×3 (10:38→17:17)
--- NOTE | 2018-07-20 17:44 | CP.PCM.PN ---
Subjective - Date & Time of Evaluation Date of Evaluation: 07/20/18 Time of Evaluation: 08:00 - Subjective Subjective: clinically same Objective - Vital Signs/Intake and Output Vital Signs (last 24 hours): Temp Pulse Resp BP Pulse Ox 97.8 F 92 H 20 124/104 H 97 07/20/18 16:00 07/20/18 16:00 07/20/18 16:00 07/20/18 16:00 07/20/18 16:00 Intake and Output: 07/20/18 07/20/18 06:59 18:59 Intake Total 200 300 Balance 200 300 - Medications Medications: Current Medications Calcium Acetate (Phoslo) 667 mg PO TID [facility] Last Admin: 07/20/18 17:16 Dose: 667 mg Clonidine HCl (Catapres) 0.2 mg PO BID [facility] Last Admin: 07/20/18 17:15 Dose: 0.2 mg Diphenhydramine HCl (Benadryl) 50 mg IVP TTS PRN PRN Reason: itchiness Last Admin: 07/20/18 08:45 Dose: 50 mg Diphenhydramine HCl (Benadryl) 25 mg IVP Q4 PRN PRN Reason: Itching / Pruritus Last Admin: 07/20/18 17:00 Dose: 25 mg Docusate Sodium (Colace) 100 mg PO TID [facility] Last Admin: 07/20/18 17:15 Dose: 100 mg Ergocalciferol (Drisdol 50,000 Intl Units Cap) 1 cap PO QWK [facility] Last Admin: 07/19/18 10:10 Dose: 1 cap Gabapentin (Neurontin) 300 mg PO BID [facility] Last Admin: 07/20/18 17:16 Dose: 300 mg Heparin Sodium (Porcine) (Heparin) 5,000 units SC DAILY [facility] Last Admin: 07/20/18 13:07 Dose: 5,000 units Hydromorphone HCl (Dilaudid) 2 mg IVP Q4 PRN PRN Reason: Pain, moderate (4-7) Last Admin: 07/20/18 17:00 Dose: 2 mg Vancomycin HCl 1 gm/ Sodium (Chloride) 250 mls @ 166.7 mls/hr IVPB TTS@1600 [facility]; Protocol Last Admin: 07/20/18 16:30 Dose: 166.7 mls/hr Insulin Glargine (Lantus) 25 unit SC [facility] Last Admin: 07/19/18 21:18 Dose: 25 units Insulin Human Regular (Novolin R) 0 unit SC [facility]; Protocol Last Admin: 07/20/18 16:30 Dose: 4 units Metoclopramide HCl (Reglan) 10 mg IM Q8 PRN PRN Reason: Nausea/Vomiting Last Admin: 07/18/18 18:35 Dose: 10 mg Mupirocin (Bactroban Ointment) 0 gm TOP BID [facility] Ondansetron HCl (Zofran Odt) 8 mg PO Q6 PRN PRN Reason: Nausea/Vomiting Last Admin: 07/19/18 02:13 Dose: 8 mg Pantoprazole Sodium (Protonix Ec Tab) 40 mg PO DAILY [facility] Last Admin: 07/20/18 13:08 Dose: 40 mg Vitamin A (Vitamin A & D Oint Ud Foilpak) 1 ea TOP BID [facility] Last Admin: 07/20/18 17:17 Dose: 1 ea Vitamin B Complex/Vit C/Folic Acid (Nephro-Vamshi) 1 tab PO 0800 [facility] Last Admin: 07/20/18 08:21 Dose: 1 tab - Labs Labs: 07/17/18 22:48 07/17/18 22:48 - Constitutional Appears: Well - Head Exam Head Exam: ATRAUMATIC, NORMAL INSPECTION, NORMOCEPHALIC - Eye Exam Eye Exam: EOMI, Normal appearance, PERRL Pupil Exam: NORMAL ACCOMODATION, PERRL - ENT Exam ENT Exam: Mucous Membranes Moist, Normal Exam - Neck Exam Neck Exam: Full ROM, Normal Inspection. absent: Lymphadenopathy - Respiratory Exam Respiratory Exam: Decreased Breath Sounds - Cardiovascular Exam Cardiovascular Exam: REGULAR RHYTHM, +S1, +S2 - GI/Abdominal Exam GI & Abdominal Exam: Soft, Diminished Bowel Sounds - Rectal Exam Rectal Exam: Deferred
--- NOTE | 2018-07-20 19:19 | CP.PCM.PN ---
Subjective - Date & Time of Evaluation Date of Evaluation: 07/20/18 Time of Evaluation: 16:00 - Subjective Subjective: SEEN ON RENAL F/U HAD HD TODAY WITH UF 3L FEELS MUCH BETTER Objective - Vital Signs/Intake and Output Vital Signs (last 24 hours): Temp Pulse Resp BP Pulse Ox 97.8 F 92 H 20 124/104 H 97 07/20/18 16:00 07/20/18 16:00 07/20/18 16:00 07/20/18 16:00 07/20/18 16:00 Intake and Output: 07/20/18 07/21/18 18:59 06:59 Intake Total 300 Balance 300 - Medications Medications: Current Medications Calcium Acetate (Phoslo) 667 mg PO TID [facility] Last Admin: 07/20/18 17:16 Dose: 667 mg Clonidine HCl (Catapres) 0.2 mg PO BID [facility] Last Admin: 07/20/18 17:15 Dose: 0.2 mg Diphenhydramine HCl (Benadryl) 50 mg IVP TTS PRN PRN Reason: itchiness Last Admin: 07/20/18 08:45 Dose: 50 mg Diphenhydramine HCl (Benadryl) 25 mg IVP Q4 PRN PRN Reason: Itching / Pruritus Last Admin: 07/20/18 17:00 Dose: 25 mg Docusate Sodium (Colace) 100 mg PO TID [facility] Last Admin: 07/20/18 17:15 Dose: 100 mg Ergocalciferol (Drisdol 50,000 Intl Units Cap) 1 cap PO QWK [facility] Last Admin: 07/19/18 10:10 Dose: 1 cap Gabapentin (Neurontin) 300 mg PO BID [facility] Last Admin: 07/20/18 17:16 Dose: 300 mg Heparin Sodium (Porcine) (Heparin) 5,000 units SC DAILY [facility] Last Admin: 07/20/18 13:07 Dose: 5,000 units Hydromorphone HCl (Dilaudid) 2 mg IVP Q4 PRN PRN Reason: Pain, moderate (4-7) Last Admin: 07/20/18 17:00 Dose: 2 mg Vancomycin HCl 1 gm/ Sodium (Chloride) 250 mls @ 166.7 mls/hr IVPB TTS@1600 [facility]; Protocol Last Admin: 12/08/18 16:30 Dose: 166.7 mls/hr Insulin Glargine (Lantus) 25 unit SC HS [facility] Last Admin: 07/19/18 21:18 Dose: 25 units Insulin Human Regular (Novolin R) 0 unit SC ACHS [facility]; Protocol Last Admin: 07/20/18 16:30 Dose: 4 units Metoclopramide HCl (Reglan) 10 mg IM Q8 PRN PRN Reason: Nausea/Vomiting Last Admin: 07/18/18 18:35 Dose: 10 mg Mupirocin (Bactroban Ointment) 0 gm TOP BID [facility] Ondansetron HCl (Zofran Odt) 8 mg PO Q6 PRN PRN Reason: Nausea/Vomiting Last Admin: 07/19/18 02:13 Dose: 8 mg Pantoprazole Sodium (Protonix Ec Tab) 40 mg PO DAILY [facility] Last Admin: 07/20/18 13:08 Dose: 40 mg Vitamin A (Vitamin A & D Oint Ud Foilpak) 1 ea TOP BID [facility] Last Admin: 07/20/18 17:17 Dose: 1 ea Vitamin B Complex/Vit C/Folic Acid (Nephro-Vamshi) 1 tab PO 0800 [facility] Last Admin: 07/20/18 08:21 Dose: 1 tab - Labs Labs: 07/17/18 22:48 07/17/18 22:48 Assessment and Plan - Assessment and Plan (Free Text) Assessment: ESRD ON HD M W F .. RECIEVED HD THURS AND SAT ANEMIA OF CKD .. H/H STABLE ELECTROLYTES ABN .. OK MMP P : C/O CURRENT CARE C/O PRESENT MANAGEMENT
[2018-07-20] MEDS: (Lantus) Insulin Glargine, Recombinant SC SCH (21:15)
[2018-07-21] MEDS: DiphenhydrAMINE 50 mg/ml Inj IVP PRN ×6 (01:06→21:00)
[2018-07-21] MEDS: (Novolin R) Insulin Human Regular 100 units/ml vial SC SCH ×4 (08:27→21:20)
[2018-07-21] MEDS: Multivitamin Vitamin B Complex (Nephro-Vite) Tab PO SCH (08:29)
[2018-07-21] MEDS: Pantoprazole 40 mg EC Tab PO SCH (09:00)
--- NOTE | 2018-07-21 12:14 | CP.PCM.PN ---
Subjective - Date & Time of Evaluation Date of Evaluation: 07/21/18 Time of Evaluation: 08:00 - Subjective Subjective: clinically same Objective - Vital Signs/Intake and Output Vital Signs (last 24 hours): Temp Pulse Resp BP Pulse Ox 98 F 88 20 138/90 100 07/21/18 08:08 07/21/18 08:08 07/21/18 08:08 07/21/18 08:08 07/21/18 08:08 Intake and Output: 07/21/18 07/21/18 06:59 18:59 Intake Total 340 120 Balance 340 120 - Medications Medications: Current Medications Calcium Acetate (Phoslo) 667 mg PO TID [facility] Last Admin: 07/21/18 09:00 Dose: 667 mg Clonidine HCl (Catapres) 0.2 mg PO BID [facility] Last Admin: 07/21/18 09:00 Dose: 0.2 mg Diphenhydramine HCl (Benadryl) 50 mg IVP TTS PRN PRN Reason: itchiness Last Admin: 07/20/18 08:45 Dose: 50 mg Diphenhydramine HCl (Benadryl) 25 mg IVP Q4 PRN PRN Reason: Itching / Pruritus Last Admin: 07/21/18 09:16 Dose: 25 mg Docusate Sodium (Colace) 100 mg PO TID [facility] Last Admin: 07/21/18 09:00 Dose: 100 mg Ergocalciferol (Drisdol 50,000 Intl Units Cap) 1 cap PO QWK [facility] Last Admin: 07/19/18 10:10 Dose: 1 cap Gabapentin (Neurontin) 300 mg PO BID [facility] Last Admin: 07/21/18 09:00 Dose: 300 mg Hydromorphone HCl (Dilaudid) 2 mg IVP Q4 PRN PRN Reason: Pain, moderate (4-7) Last Admin: 07/21/18 09:15 Dose: 2 mg Vancomycin HCl 1 gm/ Sodium (Chloride) 250 mls @ 166.7 mls/hr IVPB TTS@1600 [facility]; Protocol Last Admin: 07/20/18 16:30 Dose: 166.7 mls/hr Insulin Glargine (Lantus) 25 unit SC HS [facility] Last Admin: 07/20/18 21:15 Dose: 25 units Insulin Human Regular (Novolin R) 0 unit SC ACHS [facility]; Protocol Last Admin: 07/21/18 08:27 Dose: Not Given Metoclopramide HCl (Reglan) 10 mg IM Q8 PRN PRN Reason: Nausea/Vomiting Last Admin: 07/18/18 18:35 Dose: 10 mg Mupirocin (Bactroban Ointment) 0 gm TOP BID [facility] Last Admin: 07/20/18 18:30 Dose: 1 applic Ondansetron HCl (Zofran Odt) 8 mg PO Q6 PRN PRN Reason: Nausea/Vomiting Last Admin: 07/19/18 02:13 Dose: 8 mg Pantoprazole Sodium (Protonix Ec Tab) 40 mg PO DAILY [facility] Last Admin: 07/21/18 09:00 Dose: 40 mg Vitamin A (Vitamin A & D Oint Ud Foilpak) 1 ea TOP BID [facility] Last Admin: 07/20/18 17:17 Dose: 1 ea Vitamin B Complex/Vit C/Folic Acid (Nephro-Vamshi) 1 tab PO 0800 [facility] Last Admin: 07/21/18 08:29 Dose: 1 tab - Labs Labs: 07/17/18 22:48 07/17/18 22:48 - Constitutional Appears: Well - Head Exam Head Exam: ATRAUMATIC, NORMAL INSPECTION, NORMOCEPHALIC - Eye Exam Eye Exam: EOMI, Normal appearance, PERRL Pupil Exam: NORMAL ACCOMODATION, PERRL - ENT Exam ENT Exam: Mucous Membranes Moist, Normal Exam - Neck Exam Neck Exam: Full ROM, Normal Inspection. absent: Lymphadenopathy - Respiratory Exam Respiratory Exam: Decreased Breath Sounds - Cardiovascular Exam Cardiovascular Exam: REGULAR RHYTHM, +S1, +S2 - GI/Abdominal Exam GI & Abdominal Exam: Soft, Diminished Bowel Sounds - Rectal Exam Rectal Exam: Deferred
[2018-07-21] MEDS: Vitamins A & D Oint UD Foilpak TOP SCH ×2 (12:29→18:00)
--- NOTE | 2018-07-21 14:01 | CP.PCM.PN ---
Subjective - Date & Time of Evaluation Date of Evaluation: 07/21/18 Time of Evaluation: 09:00 - Subjective Subjective: events noted blood c/s neg thus far Objective - Vital Signs/Intake and Output Vital Signs (last 24 hours): Temp Pulse Resp BP Pulse Ox 98 F 88 20 138/90 100 07/21/18 08:08 07/21/18 08:08 07/21/18 08:08 07/21/18 08:08 07/21/18 08:08 Intake and Output: 07/21/18 07/21/18 06:59 18:59 Intake Total 340 120 Balance 340 120 - Medications Medications: Current Medications Calcium Acetate (Phoslo) 667 mg PO TID [facility] Last Admin: 07/21/18 09:00 Dose: 667 mg Clonidine HCl (Catapres) 0.2 mg PO BID [facility] Last Admin: 07/21/18 09:00 Dose: 0.2 mg Diphenhydramine HCl (Benadryl) 50 mg IVP TTS PRN PRN Reason: itchiness Last Admin: 07/20/18 08:45 Dose: 50 mg Diphenhydramine HCl (Benadryl) 25 mg IVP Q4 PRN PRN Reason: Itching / Pruritus Last Admin: 07/21/18 13:22 Dose: 25 mg Docusate Sodium (Colace) 100 mg PO TID [facility] Last Admin: 07/21/18 09:00 Dose: 100 mg Ergocalciferol (Drisdol 50,000 Intl Units Cap) 1 cap PO QWK [facility] Last Admin: 07/19/18 10:10 Dose: 1 cap Gabapentin (Neurontin) 300 mg PO BID [facility] Last Admin: 07/21/18 09:00 Dose: 300 mg Hydromorphone HCl (Dilaudid) 2 mg IVP Q4 PRN PRN Reason: Pain, moderate (4-7) Last Admin: 07/21/18 13:16 Dose: 2 mg Vancomycin HCl 1 gm/ Sodium (Chloride) 250 mls @ 166.7 mls/hr IVPB TTS@1600 [facility]; Protocol Last Admin: 07/20/18 16:30 Dose: 166.7 mls/hr Insulin Glargine (Lantus) 25 unit SC HS [facility] Last Admin: 07/20/18 21:15 Dose: 25 units Insulin Human Regular (Novolin R) 0 unit SC [facility]; Protocol Last Admin: 07/21/18 12:23 Dose: 2 units Metoclopramide HCl (Reglan) 10 mg IM Q8 PRN PRN Reason: Nausea/Vomiting Last Admin: 07/18/18 18:35 Dose: 10 mg Mupirocin (Bactroban Ointment) 0 gm TOP BID [facility] Last Admin: 07/21/18 12:26 Dose: 1 applic Ondansetron HCl (Zofran Odt) 8 mg PO Q6 PRN PRN Reason: Nausea/Vomiting Last Admin: 07/19/18 02:13 Dose: 8 mg Pantoprazole Sodium (Protonix Ec Tab) 40 mg PO DAILY [facility] Last Admin: 07/21/18 09:00 Dose: 40 mg Vitamin A (Vitamin A & D Oint Ud Foilpak) 1 ea TOP BID [facility] Last Admin: 07/21/18 12:29 Dose: 1 ea Vitamin B Complex/Vit C/Folic Acid (Nephro-Vamshi) 1 tab PO 0800 [facility] Last Admin: 07/21/18 08:29 Dose: 1 tab - Labs Labs: 07/17/18 22:48 07/17/18 22:48 - Constitutional Appears: Non-toxic, Chronically Ill - Head Exam Head Exam: NORMOCEPHALIC - Eye Exam Eye Exam: PERRL - ENT Exam ENT Exam: Mucous Membranes Dry - Respiratory Exam Respiratory Exam: Decreased Breath Sounds - Cardiovascular Exam Cardiovascular Exam: REGULAR RHYTHM - GI/Abdominal Exam GI & Abdominal Exam: Distended, Soft - Rectal Exam Rectal Exam: Deferred - Exam Exam: NORMAL INSPECTION - Back Exam Back Exam: Full ROM - Neurological Exam Neurological Exam: Alert, Awake, Oriented x3 - Psychiatric Exam Psychiatric exam: Normal Mood - Skin Skin Exam: Dry Assessment and Plan (1) Abscess of left groin Status: Acute (2) ESRD (end stage renal disease) on dialysis Status: Acute - Assessment and Plan (Free Text) Assessment: IV rx reordered
--- NOTE | 2018-07-21 19:43 | CP.PCM.PN ---
Subjective - Date & Time of Evaluation Date of Evaluation: 07/21/18 Time of Evaluation: 15:00 - Subjective Subjective: SEEN ON RENAL F/U AMBULATORY .. IN NAD FEELS MUCH BETTER RECIEVED HD YESTERDAY SAT AND LAST SUNDAY ALL PREVIOUS EMR REVIEWED Objective - Vital Signs/Intake and Output Vital Signs (last 24 hours): Temp Pulse Resp BP Pulse Ox 99.3 F 82 20 141/78 99 07/21/18 15:00 07/21/18 15:00 07/21/18 15:00 07/21/18 15:00 07/21/18 15:00 Intake and Output: 07/21/18 07/22/18 18:59 06:59 Intake Total 620 Balance 620 - Medications Medications: Current Medications Calcium Acetate (Phoslo) 667 mg PO TID [facility] Last Admin: 07/21/18 17:31 Dose: 667 mg Clonidine HCl (Catapres) 0.2 mg PO BID [facility] Last Admin: 07/21/18 17:31 Dose: 0.2 mg Diphenhydramine HCl (Benadryl) 50 mg IVP TTS PRN PRN Reason: itchiness Last Admin: 07/20/18 08:45 Dose: 50 mg Diphenhydramine HCl (Benadryl) 25 mg IVP Q4 PRN PRN Reason: Itching / Pruritus Last Admin: 07/21/18 17:29 Dose: 25 mg Docusate Sodium (Colace) 100 mg PO TID [facility] Last Admin: 07/21/18 17:31 Dose: 100 mg Ergocalciferol (Drisdol 50,000 Intl Units Cap) 1 cap PO QWK [facility] Last Admin: 07/19/18 10:10 Dose: 1 cap Gabapentin (Neurontin) 300 mg PO BID [facility] Last Admin: 07/21/18 17:32 Dose: 300 mg Hydromorphone HCl (Dilaudid) 2 mg IVP Q4 PRN PRN Reason: Pain, moderate (4-7) Last Admin: 07/21/18 17:30 Dose: 2 mg Vancomycin HCl 1 gm/ Sodium (Chloride) 250 mls @ 166.7 mls/hr IVPB TTS@1600 [facility]; Protocol Last Admin: 07/20/18 16:30 Dose: 166.7 mls/hr Insulin Glargine (Lantus) 25 unit SC HS [facility] Last Admin: 07/20/18 21:15 Dose: 25 units Insulin Human Regular (Novolin R) 0 unit SC ACHS [facility]; Protocol Last Admin: 07/21/18 16:30 Dose: 2 units Metoclopramide HCl (Reglan) 10 mg IM Q8 PRN PRN Reason: Nausea/Vomiting Last Admin: 07/18/18 18:35 Dose: 10 mg Mupirocin (Bactroban Ointment) 0 gm TOP BID [facility] Last Admin: 07/21/18 17:28 Dose: 1 applic Ondansetron HCl (Zofran Odt) 8 mg PO Q6 PRN PRN Reason: Nausea/Vomiting Last Admin: 07/19/18 02:13 Dose: 8 mg Pantoprazole Sodium (Protonix Ec Tab) 40 mg PO DAILY [facility] Last Admin: 07/21/18 09:00 Dose: 40 mg Vitamin A (Vitamin A & D Oint Ud Foilpak) 1 ea TOP BID [facility] Last Admin: 07/21/18 12:29 Dose: 1 ea Vitamin B Complex/Vit C/Folic Acid (Nephro-Vamshi) 1 tab PO 0800 [facility] Last Admin: 07/21/18 08:29 Dose: 1 tab - Labs Labs: 07/17/18 22:48 07/17/18 22:48
[2018-07-21] MEDS: (Lantus) Insulin Glargine, Recombinant SC SCH (21:19)
[2018-07-22] MEDS: DiphenhydrAMINE 50 mg/ml Inj IVP PRN ×7 (01:00→22:10)
[2018-07-22] MEDS: (Novolin R) Insulin Human Regular 100 units/ml vial SC SCH ×4 (08:49→22:17)
[2018-07-22] MEDS: Multivitamin Vitamin B Complex (Nephro-Vite) Tab PO SCH (09:03)
[2018-07-22] MEDS: Pantoprazole 40 mg EC Tab PO SCH (10:27)
[2018-07-22] MEDS: Vitamins A & D Oint UD Foilpak TOP SCH ×2 (10:27→17:29)
[2018-07-22] MEDS ORDERED: DiphenhydrAMINE 50 mg/ml Inj IVP PRN (11:02)
--- NOTE | 2018-07-22 12:52 | CP.PCM.PN ---
Subjective - Date & Time of Evaluation Date of Evaluation: 07/22/18 Time of Evaluation: 07:30 - Subjective Subjective: clinically same Objective - Vital Signs/Intake and Output Vital Signs (last 24 hours): Temp Pulse Resp BP Pulse Ox 98.3 F 101 H 18 151/93 H 99 07/22/18 09:30 07/22/18 09:30 07/22/18 09:30 07/22/18 12:00 07/22/18 09:30 Intake and Output: 07/22/18 07/22/18 06:59 18:59 Intake Total 120 Balance 120 - Medications Medications: Current Medications Calcium Acetate (Phoslo) 667 mg PO TID [facility] Last Admin: 07/22/18 10:27 Dose: Not Given Clonidine HCl (Catapres) 0.2 mg PO BID [facility] Last Admin: 07/22/18 10:26 Dose: Not Given Diphenhydramine HCl (Benadryl) 25 mg IVP Q4 PRN PRN Reason: Itching / Pruritus Last Admin: 07/22/18 09:28 Dose: 25 mg Diphenhydramine HCl (Benadryl) 50 mg IVP MWF PRN PRN Reason: itchiness Last Admin: 07/22/18 10:04 Dose: 50 mg Docusate Sodium (Colace) 100 mg PO TID [facility] Last Admin: 07/22/18 10:26 Dose: Not Given Ergocalciferol (Drisdol 50,000 Intl Units Cap) 1 cap PO QWK [facility] Last Admin: 07/19/18 10:10 Dose: 1 cap Gabapentin (Neurontin) 300 mg PO BID [facility] Last Admin: 07/22/18 10:27 Dose: Not Given Hydromorphone HCl (Dilaudid) 2 mg IVP Q4 PRN PRN Reason: Pain, moderate (4-7) Last Admin: 07/22/18 09:29 Dose: 2 mg Vancomycin HCl 1 gm/ Sodium (Chloride) 250 mls @ 166.7 mls/hr IVPB TTS@1600 [facility]; Protocol Last Admin: 07/20/18 16:30 Dose: 166.7 mls/hr Insulin Glargine (Lantus) 25 unit SC HS [facility] Last Admin: 07/21/18 21:19 Dose: 25 units Insulin Human Regular (Novolin R) 0 unit SC ACHS [facility]; Protocol Last Admin: 07/22/18 11:55 Dose: Not Given Metoclopramide HCl (Reglan) 10 mg IM Q8 PRN PRN Reason: Nausea/Vomiting Last Admin: 07/18/18 18:35 Dose: 10 mg Mupirocin (Bactroban Ointment) 0 gm TOP BID [facility] Last Admin: 07/22/18 10:28 Dose: Not Given Ondansetron HCl (Zofran Odt) 8 mg PO Q6 PRN PRN Reason: Nausea/Vomiting Last Admin: 07/19/18 02:13 Dose: 8 mg Pantoprazole Sodium (Protonix Ec Tab) 40 mg PO DAILY [facility] Last Admin: 07/22/18 10:27 Dose: Not Given Vitamin A (Vitamin A & D Oint Ud Foilpak) 1 ea TOP BID [facility] Last Admin: 07/22/18 10:27 Dose: Not Given Vitamin B Complex/Vit C/Folic Acid (Nephro-Vamshi) 1 tab PO 0800 [facility] Last Admin: 07/22/18 09:03 Dose: Not Given - Labs Labs: 07/17/18 22:48 07/17/18 22:48 - Constitutional Appears: Well - Head Exam Head Exam: ATRAUMATIC, NORMAL INSPECTION, NORMOCEPHALIC - Eye Exam Eye Exam: EOMI, Normal appearance, PERRL Pupil Exam: NORMAL ACCOMODATION, PERRL - ENT Exam ENT Exam: Mucous Membranes Moist, Normal Exam - Neck Exam Neck Exam: Full ROM, Normal Inspection. absent: Lymphadenopathy - Respiratory Exam Respiratory Exam: Decreased Breath Sounds - Cardiovascular Exam Cardiovascular Exam: REGULAR RHYTHM, +S1, +S2 - GI/Abdominal Exam GI & Abdominal Exam: Soft, Diminished Bowel Sounds - Rectal Exam Rectal Exam: Deferred
--- NOTE | 2018-07-22 18:07 | CP.PCM.PN ---
Subjective - Date & Time of Evaluation Date of Evaluation: 07/22/18 Time of Evaluation: 15:00 - Subjective Subjective: FEELS MUCH BETTER ALL PREVIOUS EMR REVIEWED Objective - Vital Signs/Intake and Output Vital Signs (last 24 hours): Temp Pulse Resp BP Pulse Ox 99.4 F 99 H 20 137/76 106 H 07/22/18 16:00 07/22/18 16:00 07/22/18 16:00 07/22/18 16:00 07/22/18 16:00 Intake and Output: 07/22/18 07/22/18 06:59 18:59 Intake Total 120 240 Balance 120 240 - Medications Medications: Current Medications Calcium Acetate (Phoslo) 667 mg PO TID [facility] Last Admin: 07/22/18 17:30 Dose: 667 mg Clonidine HCl (Catapres) 0.2 mg PO BID [facility] Last Admin: 07/22/18 17:29 Dose: 0.2 mg Diphenhydramine HCl (Benadryl) 25 mg IVP Q4 PRN PRN Reason: Itching / Pruritus Last Admin: 07/22/18 14:09 Dose: 25 mg Diphenhydramine HCl (Benadryl) 50 mg IVP MWF PRN PRN Reason: itchiness Last Admin: 07/22/18 10:04 Dose: 50 mg Docusate Sodium (Colace) 100 mg PO TID [facility] Last Admin: 07/22/18 17:29 Dose: 100 mg Ergocalciferol (Drisdol 50,000 Intl Units Cap) 1 cap PO QWK [facility] Last Admin: 07/19/18 10:10 Dose: 1 cap Gabapentin (Neurontin) 300 mg PO BID [facility] Last Admin: 07/22/18 17:30 Dose: 300 mg Hydromorphone HCl (Dilaudid) 2 mg IVP Q4 PRN PRN Reason: Pain, moderate (4-7) Last Admin: 07/22/18 14:09 Dose: 2 mg Vancomycin HCl 1 gm/ Sodium (Chloride) 250 mls @ 166.7 mls/hr IVPB TTS@1600 [facility]; Protocol Last Admin: 07/20/18 16:30 Dose: 166.7 mls/hr Insulin Glargine (Lantus) 25 unit SC [facility] Last Admin: 07/21/18 21:19 Dose: 25 units Insulin Human Regular (Novolin R) 0 unit SC ACHS [facility]; Protocol Last Admin: 07/22/18 17:30 Dose: Not Given Metoclopramide HCl (Reglan) 10 mg IM Q8 PRN PRN Reason: Nausea/Vomiting Last Admin: 07/18/18 18:35 Dose: 10 mg Mupirocin (Bactroban Ointment) 0 gm TOP BID [facility] Last Admin: 07/22/18 10:28 Dose: Not Given Ondansetron HCl (Zofran Odt) 8 mg PO Q6 PRN PRN Reason: Nausea/Vomiting Last Admin: 07/19/18 02:13 Dose: 8 mg Pantoprazole Sodium (Protonix Ec Tab) 40 mg PO DAILY [facility] Last Admin: 07/22/18 10:27 Dose: Not Given Vitamin A (Vitamin A & D Oint Ud Foilpak) 1 ea TOP BID [facility] Last Admin: 07/22/18 17:29 Dose: 1 ea Vitamin B Complex/Vit C/Folic Acid (Nephro-Vamshi) 1 tab PO 0800 [facility] Last Admin: 07/22/18 09:03 Dose: Not Given - Labs Labs: 07/17/18 22:48 07/17/18 22:48 Assessment and Plan - Assessment and Plan (Free Text) Assessment: CONSULT WAS CALLED WILL F/U
[2018-07-22] MEDS: (Lantus) Insulin Glargine, Recombinant SC SCH (21:52)
[2018-07-23] MEDS ORDERED: DiphenhydrAMINE 50 mg/ml Inj IVP ONE (00:01)
[2018-07-23] MEDS: DiphenhydrAMINE 50 mg/ml Inj IVP PRN ×5 (02:08→22:35)
[2018-07-23] MEDS: (Novolin R) Insulin Human Regular 100 units/ml vial SC SCH ×4 (08:32→21:18)
[2018-07-23] MEDS: Multivitamin Vitamin B Complex (Nephro-Vite) Tab PO SCH (08:32)
[2018-07-23] MEDS: Vitamins A & D Oint UD Foilpak TOP SCH ×2 (10:34→17:25)
[2018-07-23] MEDS: Pantoprazole 40 mg EC Tab PO SCH (10:35)
--- NOTE | 2018-07-23 16:10 | CP.PCM.PN ---
Subjective - Date & Time of Evaluation Date of Evaluation: 07/23/18 Time of Evaluation: 07:30 - Subjective Subjective: clinically same Objective - Vital Signs/Intake and Output Vital Signs (last 24 hours): Temp Pulse Resp BP Pulse Ox 98.1 F 99 H 20 144/83 96 07/23/18 07:00 07/23/18 07:00 07/23/18 07:00 07/23/18 07:00 07/23/18 07:00 Intake and Output: 07/23/18 07/23/18 06:59 18:59 Intake Total 120 240 Balance 120 240 - Medications Medications: Current Medications Calcium Acetate (Phoslo) 667 mg PO TID [facility] Last Admin: 07/23/18 13:28 Dose: 667 mg Clonidine HCl (Catapres) 0.2 mg PO BID [facility] Last Admin: 07/23/18 10:35 Dose: 0.2 mg Diphenhydramine HCl (Benadryl) 25 mg IVP Q4 PRN PRN Reason: Itching / Pruritus Last Admin: 07/23/18 14:33 Dose: 25 mg Diphenhydramine HCl (Benadryl) 50 mg IVP MWF PRN PRN Reason: itchiness Last Admin: 07/22/18 10:04 Dose: 50 mg Docusate Sodium (Colace) 100 mg PO TID [facility] Last Admin: 07/23/18 13:28 Dose: 100 mg Ergocalciferol (Drisdol 50,000 Intl Units Cap) 1 cap PO QWK [facility] Last Admin: 07/19/18 10:10 Dose: 1 cap Gabapentin (Neurontin) 300 mg PO BID [facility] Last Admin: 07/23/18 10:37 Dose: 300 mg Hydromorphone HCl (Dilaudid) 2 mg IVP Q4 PRN PRN Reason: Pain, moderate (4-7) Last Admin: 07/23/18 14:33 Dose: 2 mg Insulin Glargine (Lantus) 25 unit SC HS [facility] Last Admin: 07/22/18 21:52 Dose: 25 units Insulin Human Regular (Novolin R) 0 unit SC ACHS [facility]; Protocol Last Admin: 07/23/18 12:34 Dose: 1 units Metoclopramide HCl (Reglan) 10 mg IM Q8 PRN PRN Reason: Nausea/Vomiting Last Admin: 07/18/18 18:35 Dose: 10 mg Mupirocin (Bactroban Ointment) 0 gm TOP BID [facility] Last Admin: 07/23/18 13:23 Dose: 1 applic Ondansetron HCl (Zofran Odt) 8 mg PO Q6 PRN PRN Reason: Nausea/Vomiting Last Admin: 07/23/18 10:35 Dose: 8 mg Pantoprazole Sodium (Protonix Ec Tab) 40 mg PO DAILY [facility] Last Admin: 07/23/18 10:35 Dose: 40 mg Vitamin A (Vitamin A & D Oint Ud Foilpak) 1 ea TOP BID [facility] Last Admin: 07/23/18 10:34 Dose: 1 ea Vitamin B Complex/Vit C/Folic Acid (Nephro-Vamshi) 1 tab PO 0800 [facility] Last Admin: 07/23/18 08:32 Dose: 1 tab - Labs Labs: 07/17/18 22:48 07/17/18 22:48 - Constitutional Appears: Well - Head Exam Head Exam: ATRAUMATIC, NORMAL INSPECTION, NORMOCEPHALIC - Eye Exam Eye Exam: EOMI, Normal appearance, PERRL Pupil Exam: NORMAL ACCOMODATION, PERRL - ENT Exam ENT Exam: Mucous Membranes Moist, Normal Exam - Neck Exam Neck Exam: Full ROM, Normal Inspection. absent: Lymphadenopathy - Respiratory Exam Respiratory Exam: Decreased Breath Sounds - Cardiovascular Exam Cardiovascular Exam: REGULAR RHYTHM, +S1, +S2 - GI/Abdominal Exam GI & Abdominal Exam: Soft, Diminished Bowel Sounds - Rectal Exam Rectal Exam: Deferred
--- NOTE | 2018-07-23 18:59 | CP.PCM.PN ---
Subjective - Date & Time of Evaluation Date of Evaluation: 07/23/18 Time of Evaluation: 15:00 - Subjective Subjective: SEEN ON RENAL F/U FEELS IMPROVED ON HD W Objective - Vital Signs/Intake and Output Vital Signs (last 24 hours): Temp Pulse Resp BP Pulse Ox 97.7 F 92 H 20 137/92 H 100 07/23/18 16:00 07/23/18 16:00 07/23/18 16:00 07/23/18 16:00 07/23/18 16:00 Intake and Output: 07/23/18 07/23/18 06:59 18:59 Intake Total 120 240 Balance 120 240 - Medications Medications: Current Medications Calcium Acetate (Phoslo) 667 mg PO TID [facility] Last Admin: 07/23/18 17:25 Dose: 667 mg Clonidine HCl (Catapres) 0.2 mg PO BID [facility] Last Admin: 07/23/18 17:26 Dose: 0.2 mg Diphenhydramine HCl (Benadryl) 25 mg IVP Q4 PRN PRN Reason: Itching / Pruritus Last Admin: 07/23/18 18:35 Dose: 25 mg Diphenhydramine HCl (Benadryl) 50 mg IVP MWF PRN PRN Reason: itchiness Last Admin: 07/22/18 10:04 Dose: 50 mg Docusate Sodium (Colace) 100 mg PO TID [facility] Last Admin: 07/23/18 17:26 Dose: 100 mg Ergocalciferol (Drisdol 50,000 Intl Units Cap) 1 cap PO QWK [facility] Last Admin: 07/19/18 10:10 Dose: 1 cap Gabapentin (Neurontin) 300 mg PO BID [facility] Last Admin: 07/23/18 17:26 Dose: 300 mg Hydromorphone HCl (Dilaudid) 2 mg IVP Q4 PRN PRN Reason: Pain, moderate (4-7) Last Admin: 07/23/18 18:35 Dose: 2 mg Insulin Glargine (Lantus) 25 unit SC HS [facility] Last Admin: 07/22/18 21:52 Dose: 25 units Insulin Human Regular (Novolin R) 0 unit SC ACHS [facility]; Protocol Last Admin: 07/23/18 17:29 Dose: 3 units Metoclopramide HCl (Reglan) 10 mg IM Q8 PRN PRN Reason: Nausea/Vomiting Last Admin: 07/18/18 18:35 Dose: 10 mg Mupirocin (Bactroban Ointment) 0 gm TOP BID [facility] Last Admin: 07/23/18 13:23 Dose: 1 applic Ondansetron HCl (Zofran Odt) 8 mg PO Q6 PRN PRN Reason: Nausea/Vomiting Last Admin: 07/23/18 10:35 Dose: 8 mg Pantoprazole Sodium (Protonix Ec Tab) 40 mg PO DAILY [facility] Last Admin: 07/23/18 10:35 Dose: 40 mg Vitamin A (Vitamin A & D Oint Ud Foilpak) 1 ea TOP BID [facility] Last Admin: 07/23/18 17:25 Dose: 1 ea Vitamin B Complex/Vit C/Folic Acid (Nephro-Vamshi) 1 tab PO 0800 [facility] Last Admin: 07/23/18 08:32 Dose: 1 tab - Labs Labs: 07/17/18 22:48 07/17/18 22:48 Assessment and Plan - Assessment and Plan (Free Text) Assessment: ESRD ON HD M W F .. TO BE C/O ANEMIA OF CKD .. H/H STABLE ELECTROLYTES ABN ,.. BETTER P : C/O CUENT CARE C/O PRESENT MANAGEMENT
[2018-07-23] MEDS: (Lantus) Insulin Glargine, Recombinant SC SCH (21:18)
[2018-07-24] MEDS: DiphenhydrAMINE 50 mg/ml Inj IVP PRN ×7 (02:55→23:24)
[2018-07-24] MEDS: Multivitamin Vitamin B Complex (Nephro-Vite) Tab PO SCH (08:39)
[2018-07-24] MEDS: (Novolin R) Insulin Human Regular 100 units/ml vial SC SCH ×4 (08:40→21:44)
[2018-07-24 08:48] LABS: BASO # 0.1 K/uL (0.0-0.2); EOS # 1.4 K/uL (0.0-0.7); EOS % 17.2 % (0.0-4.0); HEMOGLOBIN 8.4 g/dL (11.0-16.0); LYMPH % 12.6 % (20.0-40.0); MEAN CELL VOLUME 94.8 fL (81.0-99.0); MEAN CORPUSCULAR HEMOGLOBIN 31.4 pg (27.0-31.0); MEAN CORPUSCULAR HGB CONC 33.1 g/dL (33.0-37.0); MEAN PLATELET VOLUME 7.5 fL (7.2-11.7); MONO # 0.6 K/uL (0.0-0.8); NEUT # 4.9 K/uL (1.8-7.0); NEUT % 62.2 % (50.0-75.0); RBC 2.66 Mil/uL (3.80-5.20); RED CELL DISTRIBUTION WIDTH 16.2 % (11.5-14.5); WHITE BLOOD COUNT 7.9 K/uL (4.8-10.8)
[2018-07-24 09:16] LABS: ALB/GLOB RATIO 1.2 (1.0-2.1); ALBUMIN 4.1 g/dL (3.5-5.0); CALCIUM 8.2 mg/dl (8.6-10.4)
[2018-07-24] MEDS: Vitamins A & D Oint UD Foilpak TOP SCH ×2 (11:01→17:56)
[2018-07-24] MEDS: Pantoprazole 40 mg EC Tab PO SCH (11:01)
[2018-07-24] MEDS: EPOETIN ALFA 10,000 UNIT/ML ML IV SCH ×2 (11:17→11:21)
[2018-07-24] MEDS: Epoetin Alfa 10,000 unit/ml Dialysis IV SCH (11:19)
--- NOTE | 2018-07-24 11:59 | CP.PCM.PN ---
Subjective - Date & Time of Evaluation Date of Evaluation: 07/24/18 Time of Evaluation: 23:00 - Subjective Subjective: SEEN ON RENAL F/U SEEN ON HD HGB LOW .. WILL GIVE EPO Objective - Vital Signs/Intake and Output Vital Signs (last 24 hours): Temp Pulse Resp BP Pulse Ox 98.1 F 104 H 20 179/97 H 97 07/24/18 08:40 07/24/18 08:40 07/24/18 08:40 07/24/18 11:05 07/24/18 08:35 Intake and Output: 07/24/18 07/24/18 06:59 18:59 Intake Total 100 Balance 100 - Medications Medications: Current Medications Calcium Acetate (Phoslo) 667 mg PO TIDCC [facility] Last Admin: 07/24/18 08:40 Dose: 667 mg Clonidine HCl (Catapres) 0.2 mg PO BID [facility] Last Admin: 07/24/18 11:00 Dose: Not Given Diphenhydramine HCl (Benadryl) 25 mg IVP Q4 PRN PRN Reason: Itching / Pruritus Last Admin: 07/24/18 10:57 Dose: 25 mg Diphenhydramine HCl (Benadryl) 50 mg IVP MWF PRN PRN Reason: itchiness Last Admin: 07/24/18 08:39 Dose: 50 mg Docusate Sodium (Colace) 100 mg PO TID [facility] Last Admin: 07/24/18 11:00 Dose: Not Given Epoetin James (Procrit) 10,000 unit IV MWF [facility] Stop: 08/02/18 23:59 Last Admin: 07/24/18 11:19 Dose: 10,000 unit Ergocalciferol (Drisdol 50,000 Intl Units Cap) 1 cap PO QWK [facility] Last Admin: 07/19/18 10:10 Dose: 1 cap Gabapentin (Neurontin) 300 mg PO BID [facility] Last Admin: 07/24/18 11:00 Dose: Not Given Hydromorphone HCl (Dilaudid) 2 mg IVP Q4 PRN PRN Reason: Pain, moderate (4-7) Last Admin: 07/24/18 10:56 Dose: 2 mg Insulin Glargine (Lantus) 25 unit SC HS [facility] Last Admin: 07/23/18 21:18 Dose: 25 units Insulin Human Regular (Novolin R) 0 unit SC ACHS [facility]; Protocol Last Admin: 07/24/18 11:57 Dose: Not Given Metoclopramide HCl (Reglan) 10 mg IM Q8 PRN PRN Reason: Nausea/Vomiting Last Admin: 07/18/18 18:35 Dose: 10 mg Mupirocin (Bactroban Ointment) 0 gm TOP BID [facility] Last Admin: 07/24/18 11:00 Dose: Not Given Ondansetron HCl (Zofran Odt) 8 mg PO Q6 PRN PRN Reason: Nausea/Vomiting Last Admin: 07/23/18 10:35 Dose: 8 mg Pantoprazole Sodium (Protonix Ec Tab) 40 mg PO DAILY [facility] Last Admin: 07/24/18 11:01 Dose: Not Given Vitamin A (Vitamin A & D Oint Ud Foilpak) 1 ea TOP BID [facility] Last Admin: 07/24/18 11:01 Dose: Not Given Vitamin B Complex/Vit C/Folic Acid (Nephro-Vamshi) 1 tab PO 0800 [facility] Last Admin: 07/24/18 08:39 Dose: 1 tab - Labs Labs: 07/24/18 08:43 07/24/18 08:43
--- NOTE | 2018-07-24 18:03 | CP.PCM.PN ---
Subjective - Date & Time of Evaluation Date of Evaluation: 07/24/18 Time of Evaluation: 07:30 - Subjective Subjective: clinically same Objective - Vital Signs/Intake and Output Vital Signs (last 24 hours): Temp Pulse Resp BP Pulse Ox 99.0 F 105 H 20 175/98 H 99 07/24/18 16:00 07/24/18 16:00 07/24/18 16:00 07/24/18 16:00 07/24/18 16:00 Intake and Output: 07/24/18 07/24/18 06:59 18:59 Intake Total 100 240 Balance 100 240 - Medications Medications: Current Medications Calcium Acetate (Phoslo) 667 mg PO TIDCC [facility] Last Admin: 07/24/18 17:56 Dose: 667 mg Clonidine HCl (Catapres) 0.2 mg PO BID [facility] Last Admin: 07/24/18 17:56 Dose: 0.2 mg Diphenhydramine HCl (Benadryl) 25 mg IVP Q4 PRN PRN Reason: Itching / Pruritus Last Admin: 07/24/18 15:25 Dose: 25 mg Diphenhydramine HCl (Benadryl) 50 mg IVP MWF PRN PRN Reason: itchiness Last Admin: 07/24/18 08:39 Dose: 50 mg Docusate Sodium (Colace) 100 mg PO TID [facility] Last Admin: 07/24/18 17:56 Dose: 100 mg Epoetin James (Procrit) 10,000 unit IV MWF [facility] Stop: 08/02/18 23:59 Last Admin: 07/24/18 11:19 Dose: 10,000 unit Ergocalciferol (Drisdol 50,000 Intl Units Cap) 1 cap PO QWK [facility] Last Admin: 07/19/18 10:10 Dose: 1 cap Gabapentin (Neurontin) 300 mg PO BID [facility] Last Admin: 07/24/18 17:56 Dose: 300 mg Hydromorphone HCl (Dilaudid) 2 mg IVP Q4 PRN PRN Reason: Pain, moderate (4-7) Last Admin: 07/24/18 15:24 Dose: 2 mg Insulin Glargine (Lantus) 25 unit SC HS [facility] Last Admin: 07/23/18 21:18 Dose: 25 units Insulin Human Regular (Novolin R) 0 unit SC ACHS [facility]; Protocol Last Admin: 07/24/18 17:30 Dose: 2 units Metoclopramide HCl (Reglan) 10 mg IM Q8 PRN PRN Reason: Nausea/Vomiting Last Admin: 07/18/18 18:35 Dose: 10 mg Mupirocin (Bactroban Ointment) 0 gm TOP BID [facility] Last Admin: 07/24/18 17:56 Dose: 1 applic Ondansetron HCl (Zofran Odt) 8 mg PO Q6 PRN PRN Reason: Nausea/Vomiting Last Admin: 07/23/18 10:35 Dose: 8 mg Pantoprazole Sodium (Protonix Ec Tab) 40 mg PO DAILY [facility] Last Admin: 07/24/18 11:01 Dose: Not Given Vitamin A (Vitamin A & D Oint Ud Foilpak) 1 ea TOP BID [facility] Last Admin: 07/24/18 17:56 Dose: 1 ea Vitamin B Complex/Vit C/Folic Acid (Nephro-Vamshi) 1 tab PO 0800 [facility] Last Admin: 07/24/18 08:39 Dose: 1 tab - Labs Labs: 07/24/18 08:43 07/24/18 08:43 - Constitutional Appears: Well - Head Exam Head Exam: ATRAUMATIC, NORMAL INSPECTION, NORMOCEPHALIC - Eye Exam Eye Exam: EOMI, Normal appearance, PERRL Pupil Exam: NORMAL ACCOMODATION, PERRL - ENT Exam ENT Exam: Mucous Membranes Moist, Normal Exam - Neck Exam Neck Exam: Full ROM, Normal Inspection. absent: Lymphadenopathy - Respiratory Exam Respiratory Exam: Decreased Breath Sounds - Cardiovascular Exam Cardiovascular Exam: REGULAR RHYTHM, +S1, +S2 - GI/Abdominal Exam GI & Abdominal Exam: Soft, Diminished Bowel Sounds - Rectal Exam Rectal Exam: Deferred
--- NOTE | 2018-07-24 18:58 | CP.PCM.PN ---
Subjective - Date & Time of Evaluation Date of Evaluation: 07/24/18 Time of Evaluation: 08:00 - Subjective Subjective: events noted less swelling Objective - Vital Signs/Intake and Output Vital Signs (last 24 hours): Temp Pulse Resp BP Pulse Ox 99.0 F 105 H 20 175/98 H 99 07/24/18 16:00 07/24/18 16:00 07/24/18 16:00 07/24/18 16:00 07/24/18 16:00 Intake and Output: 07/24/18 07/24/18 06:59 18:59 Intake Total 100 240 Balance 100 240 - Medications Medications: Current Medications Calcium Acetate (Phoslo) 667 mg PO TIDCC [facility] Last Admin: 07/24/18 17:56 Dose: 667 mg Clonidine HCl (Catapres) 0.2 mg PO BID [facility] Last Admin: 07/24/18 17:56 Dose: 0.2 mg Diphenhydramine HCl (Benadryl) 25 mg IVP Q4 PRN PRN Reason: Itching / Pruritus Last Admin: 07/24/18 15:25 Dose: 25 mg Diphenhydramine HCl (Benadryl) 50 mg IVP MWF PRN PRN Reason: itchiness Last Admin: 07/24/18 08:39 Dose: 50 mg Docusate Sodium (Colace) 100 mg PO TID [facility] Last Admin: 07/24/18 17:56 Dose: 100 mg Epoetin James (Procrit) 10,000 unit IV MWF [facility] Stop: 08/02/18 23:59 Last Admin: 07/24/18 11:19 Dose: 10,000 unit Ergocalciferol (Drisdol 50,000 Intl Units Cap) 1 cap PO QWK [facility] Last Admin: 07/19/18 10:10 Dose: 1 cap Gabapentin (Neurontin) 300 mg PO BID [facility] Last Admin: 07/24/18 17:56 Dose: 300 mg Hydromorphone HCl (Dilaudid) 2 mg IVP Q4 PRN PRN Reason: Pain, moderate (4-7) Last Admin: 07/24/18 15:24 Dose: 2 mg Insulin Glargine (Lantus) 25 unit SC HS [facility] Last Admin: 07/23/18 21:18 Dose: 25 units Insulin Human Regular (Novolin R) 0 unit SC ACHS [facility]; Protocol Last Admin: 07/24/18 17:30 Dose: 2 units Metoclopramide HCl (Reglan) 10 mg IM Q8 PRN PRN Reason: Nausea/Vomiting Last Admin: 07/18/18 18:35 Dose: 10 mg Mupirocin (Bactroban Ointment) 0 gm TOP BID [facility] Last Admin: 07/24/18 17:56 Dose: 1 applic Ondansetron HCl (Zofran Odt) 8 mg PO Q6 PRN PRN Reason: Nausea/Vomiting Last Admin: 07/23/18 10:35 Dose: 8 mg Pantoprazole Sodium (Protonix Ec Tab) 40 mg PO DAILY [facility] Last Admin: 07/24/18 11:01 Dose: Not Given Vitamin A (Vitamin A & D Oint Ud Foilpak) 1 ea TOP BID [facility] Last Admin: 07/24/18 17:56 Dose: 1 ea Vitamin B Complex/Vit C/Folic Acid (Nephro-Vamshi) 1 tab PO 0800 [facility] Last Admin: 07/24/18 08:39 Dose: 1 tab - Labs Labs: 07/24/18 08:43 07/24/18 08:43 - Constitutional Appears: Non-toxic, Chronically Ill - Head Exam Head Exam: NORMOCEPHALIC - Eye Exam Eye Exam: absent: Scleral icterus - ENT Exam ENT Exam: Mucous Membranes Dry - Neck Exam Neck Exam: absent: Lymphadenopathy - Respiratory Exam Respiratory Exam: Decreased Breath Sounds - Cardiovascular Exam Cardiovascular Exam: REGULAR RHYTHM - GI/Abdominal Exam GI & Abdominal Exam: Distended, Soft Assessment and Plan (1) Abscess of left groin Status: Acute (2) ESRD (end stage renal disease) on dialysis Status: Acute
[2018-07-24] MEDS: (Lantus) Insulin Glargine, Recombinant SC SCH (21:53)
[2018-07-25] MEDS: DiphenhydrAMINE 50 mg/ml Inj IVP PRN ×2 (03:30→07:57)
[2018-07-25] MEDS: (Novolin R) Insulin Human Regular 100 units/ml vial SC SCH ×4 (08:09→21:39)
[2018-07-25] MEDS: Pantoprazole 40 mg EC Tab PO SCH (09:48)
[2018-07-25] MEDS: Multivitamin Vitamin B Complex (Nephro-Vite) Tab PO SCH (09:48)
[2018-07-25] MEDS: Vitamins A & D Oint UD Foilpak TOP SCH ×2 (09:48→17:26)
[2018-07-25] MEDS: Vancomycin 1 gm/NS 200 ml 1 GM/200 ML BAG IVPB SCH (12:39)
--- NOTE | 2018-07-25 17:23 | CP.PCM.PN ---
Subjective - Date & Time of Evaluation Date of Evaluation: 07/25/18 Time of Evaluation: 07:30 - Subjective Subjective: clinically same Objective - Vital Signs/Intake and Output Vital Signs (last 24 hours): Temp Pulse Resp BP Pulse Ox 98.3 F 104 H 20 157/88 H 97 07/25/18 16:00 07/25/18 16:00 07/25/18 16:00 07/25/18 16:00 07/25/18 16:00 Intake and Output: 07/25/18 07/25/18 06:59 18:59 Intake Total 380 200 Balance 380 200 - Medications Medications: Current Medications Calcium Acetate (Phoslo) 667 mg PO TIDCC [facility] Last Admin: 07/25/18 13:41 Dose: 667 mg Clonidine HCl (Catapres) 0.2 mg PO BID [facility] Last Admin: 07/25/18 09:49 Dose: 0.2 mg Diphenhydramine HCl (Benadryl) 50 mg PO MWF PRN PRN Reason: itchiness Diphenhydramine HCl (Benadryl) 25 mg PO Q4 PRN PRN Reason: Itching / Pruritus Last Admin: 07/25/18 15:18 Dose: 25 mg Docusate Sodium (Colace) 100 mg PO TID [facility] Last Admin: 07/25/18 13:43 Dose: 100 mg Epoetin James (Procrit) 10,000 unit IV MWF [facility] Stop: 08/02/18 23:59 Last Admin: 07/24/18 11:19 Dose: 10,000 unit Ergocalciferol (Drisdol 50,000 Intl Units Cap) 1 cap PO QWK [facility] Last Admin: 07/19/18 10:10 Dose: 1 cap Gabapentin (Neurontin) 300 mg PO BID [facility] Last Admin: 07/25/18 09:49 Dose: 300 mg Hydromorphone HCl (Dilaudid) 2 mg IVP Q4 PRN PRN Reason: Pain, moderate (4-7) Last Admin: 07/25/18 15:18 Dose: 2 mg Vancomycin/Sodium Chloride (Vancomycin 1 Gm/Ns 200 Ml) 1 gm in 200 mls @ 166.7 mls/hr IVPB TTS [facility]; Protocol Stop: 07/30/18 10:01 Last Admin: 07/25/18 12:39 Dose: 166.7 mls/hr Insulin Glargine (Lantus) 25 unit SC HS [facility] Last Admin: 07/24/18 21:53 Dose: 25 units Insulin Human Regular (Novolin R) 0 unit SC ACHS [facility]; Protocol Last Admin: 07/25/18 11:40 Dose: Not Given Metoclopramide HCl (Reglan) 10 mg IM Q8 PRN PRN Reason: Nausea/Vomiting Last Admin: 07/18/18 18:35 Dose: 10 mg Mupirocin (Bactroban Ointment) 0 gm TOP BID [facility] Last Admin: 07/25/18 12:38 Dose: Not Given Ondansetron HCl (Zofran Odt) 8 mg PO Q6 PRN PRN Reason: Nausea/Vomiting Last Admin: 07/23/18 10:35 Dose: 8 mg Pantoprazole Sodium (Protonix Ec Tab) 40 mg PO DAILY [facility] Last Admin: 07/25/18 09:48 Dose: 40 mg Vitamin A (Vitamin A & D Oint Ud Foilpak) 1 ea TOP BID [facility] Last Admin: 07/25/18 09:48 Dose: 1 ea Vitamin B Complex/Vit C/Folic Acid (Nephro-Vamshi) 1 tab PO 0800 [facility] Last Admin: 07/25/18 09:48 Dose: 1 tab - Labs Labs: 07/24/18 08:43 07/24/18 08:43 - Constitutional Appears: Well - Head Exam Head Exam: ATRAUMATIC, NORMAL INSPECTION, NORMOCEPHALIC - Eye Exam Eye Exam: EOMI, Normal appearance, PERRL Pupil Exam: NORMAL ACCOMODATION, PERRL - ENT Exam ENT Exam: Mucous Membranes Moist, Normal Exam - Neck Exam Neck Exam: Full ROM, Normal Inspection. absent: Lymphadenopathy - Respiratory Exam Respiratory Exam: Decreased Breath Sounds - Cardiovascular Exam Cardiovascular Exam: REGULAR RHYTHM, +S1, +S2 - GI/Abdominal Exam GI & Abdominal Exam: Soft, Diminished Bowel Sounds - Rectal Exam Rectal Exam: Deferred Assessment and Plan - Assessment and Plan (Free Text) Plan: Continue vancomycin on the dialysis Continue IV Benadryl Continue p.o. Benadryl as IV not available Continue gabapentin Continue hemodialysis As ordered Blood pressure is 157/88
--- NOTE | 2018-07-25 18:31 | CP.PCM.PN ---
Subjective - Date & Time of Evaluation Date of Evaluation: 07/25/18 Time of Evaluation: 08:00 - Subjective Subjective: afeb nad Objective - Vital Signs/Intake and Output Vital Signs (last 24 hours): Temp Pulse Resp BP Pulse Ox 98.3 F 104 H 20 157/88 H 97 07/25/18 16:00 07/25/18 16:00 07/25/18 16:00 07/25/18 16:00 07/25/18 16:00 Intake and Output: 07/25/18 07/25/18 06:59 18:59 Intake Total 380 200 Balance 380 200 - Medications Medications: Current Medications Calcium Acetate (Phoslo) 667 mg PO TIDCC [facility] Last Admin: 07/25/18 17:24 Dose: 667 mg Clonidine HCl (Catapres) 0.2 mg PO BID [facility] Last Admin: 07/25/18 17:24 Dose: 0.2 mg Diphenhydramine HCl (Benadryl) 50 mg PO MWF PRN PRN Reason: itchiness Diphenhydramine HCl (Benadryl) 25 mg PO Q4 PRN PRN Reason: Itching / Pruritus Last Admin: 07/25/18 15:18 Dose: 25 mg Docusate Sodium (Colace) 100 mg PO TID [facility] Last Admin: 07/25/18 17:24 Dose: 100 mg Epoetin James (Procrit) 10,000 unit IV MWF [facility] Stop: 08/02/18 23:59 Last Admin: 07/24/18 11:19 Dose: 10,000 unit Ergocalciferol (Drisdol 50,000 Intl Units Cap) 1 cap PO QWK [facility] Last Admin: 07/19/18 10:10 Dose: 1 cap Gabapentin (Neurontin) 300 mg PO BID [facility] Last Admin: 07/25/18 17:24 Dose: 300 mg Hydromorphone HCl (Dilaudid) 2 mg IVP Q4 PRN PRN Reason: Pain, moderate (4-7) Last Admin: 07/25/18 15:18 Dose: 2 mg Vancomycin/Sodium Chloride (Vancomycin 1 Gm/Ns 200 Ml) 1 gm in 200 mls @ 166.7 mls/hr IVPB TTS [facility]; Protocol Stop: 07/30/18 10:01 Last Admin: 07/25/18 12:39 Dose: 166.7 mls/hr Insulin Glargine (Lantus) [address] [facility] Last Admin: 07/24/18 21:53 Dose: 25 units Insulin Human Regular (Novolin R) 0 unit SC ACHS [facility]; Protocol Last Admin: 07/25/18 17:25 Dose: 2 units Metoclopramide HCl (Reglan) 10 mg IM Q8 PRN PRN Reason: Nausea/Vomiting Last Admin: 07/18/18 18:35 Dose: 10 mg Mupirocin (Bactroban Ointment) 0 gm TOP BID [facility] Last Admin: 07/25/18 17:30 Dose: Not Given Ondansetron HCl (Zofran Odt) 8 mg PO Q6 PRN PRN Reason: Nausea/Vomiting Last Admin: 07/23/18 10:35 Dose: 8 mg Pantoprazole Sodium (Protonix Ec Tab) 40 mg PO DAILY [facility] Last Admin: 07/25/18 09:48 Dose: 40 mg Vitamin A (Vitamin A & D Oint Ud Foilpak) 1 ea TOP BID [facility] Last Admin: 07/25/18 17:26 Dose: 1 ea Vitamin B Complex/Vit C/Folic Acid (Nephro-Vamshi) 1 tab PO 0800 [facility] Last Admin: 07/25/18 09:48 Dose: 1 tab - Labs Labs: 07/24/18 08:43 07/24/18 08:43 - Constitutional Appears: Non-toxic, Chronically Ill - Head Exam Head Exam: NORMOCEPHALIC - Eye Exam Eye Exam: absent: Scleral icterus - ENT Exam ENT Exam: Mucous Membranes Dry - Neck Exam Neck Exam: absent: Lymphadenopathy - Respiratory Exam Respiratory Exam: Decreased Breath Sounds - Cardiovascular Exam Cardiovascular Exam: REGULAR RHYTHM - GI/Abdominal Exam GI & Abdominal Exam: Distended Assessment and Plan (1) Abscess of left groin Status: Acute (2) ESRD (end stage renal disease) on dialysis Status: Acute - Assessment and Plan (Free Text) Assessment: IV rx reordered
[2018-07-25] MEDS: (Lantus) Insulin Glargine, Recombinant SC SCH (22:18)
--- NOTE | 2018-07-25 23:43 | CP.PCM.PN ---
Subjective - Date & Time of Evaluation Date of Evaluation: 07/25/18 Time of Evaluation: 15:00 - Subjective Subjective: SEEN ON RENAL F/U FEELS MUCH BETTER ALL EMR REVIEWED ON HD M W F AND SAT Objective - Vital Signs/Intake and Output Vital Signs (last 24 hours): Temp Pulse Resp BP Pulse Ox 98.3 F 104 H 20 157/88 H 97 07/25/18 16:00 07/25/18 16:00 07/25/18 16:00 07/25/18 16:00 07/25/18 16:00 Intake and Output: 07/25/18 07/26/18 18:59 06:59 Intake Total 200 Balance 200 - Medications Medications: Current Medications Calcium Acetate (Phoslo) 667 mg PO TIDCC [facility] Last Admin: 07/25/18 17:24 Dose: 667 mg Clonidine HCl (Catapres) 0.2 mg PO BID [facility] Last Admin: 07/25/18 17:24 Dose: 0.2 mg Diphenhydramine HCl (Benadryl) 50 mg PO MWF PRN PRN Reason: itchiness Diphenhydramine HCl (Benadryl) 25 mg PO Q4 PRN PRN Reason: Itching / Pruritus Last Admin: 07/25/18 19:45 Dose: 25 mg Docusate Sodium (Colace) 100 mg PO TID [facility] Last Admin: 07/25/18 17:24 Dose: 100 mg Epoetin James (Procrit) 10,000 unit IV MWF [facility] Stop: 08/02/18 23:59 Last Admin: 07/24/18 11:19 Dose: 10,000 unit Ergocalciferol (Drisdol 50,000 Intl Units Cap) 1 cap PO QWK [facility] Last Admin: 07/19/18 10:10 Dose: 1 cap Gabapentin (Neurontin) 300 mg PO BID [facility] Last Admin: 07/25/18 17:24 Dose: 300 mg Hydromorphone HCl (Dilaudid) 2 mg IVP Q4 PRN PRN Reason: Pain, moderate (4-7) Last Admin: 07/25/18 19:46 Dose: 2 mg Vancomycin/Sodium Chloride (Vancomycin 1 Gm/Ns 200 Ml) 1 gm in 200 mls @ 166.7 mls/hr IVPB TTS [facility]; Protocol Stop: 07/30/18 10:01 Last Admin: 07/25/18 12:39 Dose: 166.7 mls/hr Insulin Glargine (Lantus) 10 unit SC HS [facility] Last Admin: 07/25/18 22:18 Dose: 10 units Insulin Human Regular (Novolin R) 0 unit SC ACHS [facility]; Protocol Last Admin: 07/25/18 21:39 Dose: Not Given Metoclopramide HCl (Reglan) 10 mg IM Q8 PRN PRN Reason: Nausea/Vomiting Last Admin: 07/18/18 18:35 Dose: 10 mg Mupirocin (Bactroban Ointment) 0 gm TOP BID [facility] Last Admin: 07/25/18 17:30 Dose: Not Given Ondansetron HCl (Zofran Odt) 8 mg PO Q6 PRN PRN Reason: Nausea/Vomiting Last Admin: 07/23/18 10:35 Dose: 8 mg Pantoprazole Sodium (Protonix Ec Tab) 40 mg PO DAILY [facility] Last Admin: 07/25/18 09:48 Dose: 40 mg Vitamin A (Vitamin A & D Oint Ud Foilpak) 1 ea TOP BID [facility] Last Admin: 07/25/18 17:26 Dose: 1 ea Vitamin B Complex/Vit C/Folic Acid (Nephro-Vamshi) 1 tab PO 0800 [facility] Last Admin: 07/25/18 09:48 Dose: 1 tab - Labs Labs: 07/24/18 08:43 07/24/18 08:43
[2018-07-26] MEDS: Multivitamin Vitamin B Complex (Nephro-Vite) Tab PO SCH (08:28)
[2018-07-26] MEDS: (Novolin R) Insulin Human Regular 100 units/ml vial SC SCH ×4 (08:28→21:30)
[2018-07-26] MEDS ORDERED: DiphenhydrAMINE 50 mg/ml Inj IM STA (08:35)
[2018-07-26] MEDS: Ergocalciferol 50,000 Intl Units Cap PO SCH (09:38)
[2018-07-26] MEDS: Epoetin Alfa 10,000 unit/ml Dialysis IV SCH (09:46)
[2018-07-26] MEDS: Vitamins A & D Oint UD Foilpak TOP SCH ×2 (09:46→18:20)
[2018-07-26] MEDS: Pantoprazole 40 mg EC Tab PO SCH (09:46)
--- NOTE | 2018-07-26 14:16 | CP.PCM.PN ---
Subjective - Date & Time of Evaluation Date of Evaluation: 07/26/18 Time of Evaluation: 07:15 - Subjective Subjective: clinically same Objective - Vital Signs/Intake and Output Vital Signs (last 24 hours): Temp Pulse Resp BP Pulse Ox 97.9 F 109 H 20 144/90 100 07/26/18 12:45 07/26/18 12:45 07/26/18 12:45 07/26/18 12:45 07/26/18 12:45 Intake and Output: 07/26/18 07/26/18 06:59 18:59 Intake Total 120 Balance 120 - Medications Medications: Current Medications Calcium Acetate (Phoslo) 667 mg PO TIDCC [facility] Last Admin: 07/26/18 11:40 Dose: Not Given Clonidine HCl (Catapres) 0.2 mg PO BID [facility] Last Admin: 07/26/18 09:45 Dose: Not Given Diphenhydramine HCl (Benadryl) 50 mg PO MWF PRN PRN Reason: itchiness Diphenhydramine HCl (Benadryl) 25 mg PO Q4 PRN PRN Reason: Itching / Pruritus Last Admin: 07/26/18 13:07 Dose: 25 mg Docusate Sodium (Colace) 100 mg PO TID [facility] Last Admin: 07/26/18 13:31 Dose: 100 mg Epoetin James (Procrit) 10,000 unit IV MWF [facility] Stop: 08/02/18 23:59 Last Admin: 07/26/18 09:46 Dose: 10,000 unit Ergocalciferol (Drisdol 50,000 Intl Units Cap) 1 cap PO QWK [facility] Last Admin: 07/26/18 09:38 Dose: Not Given Gabapentin (Neurontin) 300 mg PO BID [facility] Last Admin: 07/26/18 09:46 Dose: Not Given Hydromorphone HCl (Dilaudid) 2 mg IVP Q4 PRN PRN Reason: Pain, moderate (4-7) Last Admin: 07/26/18 13:07 Dose: 2 mg Vancomycin/Sodium Chloride (Vancomycin 1 Gm/Ns 200 Ml) 1 gm in 200 mls @ 166.7 mls/hr IVPB TTS [facility]; Protocol Stop: 07/30/18 10:01 Last Admin: 07/25/18 12:39 Dose: 166.7 mls/hr Insulin Glargine (Lantus) 10 unit SC HS [facility] Last Admin: 07/25/18 22:18 Dose: 10 units Insulin Human Regular (Novolin R) 0 unit SC ACHS [facility]; Protocol Last Admin: 07/26/18 11:39 Dose: Not Given Metoclopramide HCl (Reglan) 10 mg IM Q8 PRN PRN Reason: Nausea/Vomiting Last Admin: 07/26/18 13:06 Dose: 10 mg Mupirocin (Bactroban Ointment) 0 gm TOP BID [facility] Last Admin: 07/26/18 09:45 Dose: Not Given Ondansetron HCl (Zofran Odt) 8 mg PO Q6 PRN PRN Reason: Nausea/Vomiting Last Admin: 07/23/18 10:35 Dose: 8 mg Pantoprazole Sodium (Protonix Ec Tab) 40 mg PO DAILY [facility] Last Admin: 07/26/18 09:46 Dose: Not Given Vitamin A (Vitamin A & D Oint Ud Foilpak) 1 ea TOP BID [facility] Last Admin: 07/26/18 09:46 Dose: Not Given Vitamin B Complex/Vit C/Folic Acid (Nephro-Vamshi) 1 tab PO 0800 [facility] Last Admin: 07/26/18 08:28 Dose: 1 tab - Labs Labs: 07/24/18 08:43 07/24/18 08:43 - Constitutional Appears: Well - Head Exam Head Exam: ATRAUMATIC, NORMAL INSPECTION, NORMOCEPHALIC - Eye Exam Eye Exam: EOMI, Normal appearance, PERRL Pupil Exam: NORMAL ACCOMODATION, PERRL - ENT Exam ENT Exam: Mucous Membranes Moist, Normal Exam - Neck Exam Neck Exam: Full ROM, Normal Inspection. absent: Lymphadenopathy - Respiratory Exam Respiratory Exam: Decreased Breath Sounds - Cardiovascular Exam Cardiovascular Exam: REGULAR RHYTHM, +S1, +S2 - GI/Abdominal Exam GI & Abdominal Exam: Soft, Diminished Bowel Sounds - Rectal Exam Rectal Exam: Deferred
--- NOTE | 2018-07-26 15:02 | CP.PCM.PN ---
Subjective - Date & Time of Evaluation Date of Evaluation: 07/26/18 Time of Evaluation: 14:00 - Subjective Subjective: SEEN ON RENAL F/U IN BED .. COMPLETED HER HD TODAY C/O NAUSIOUS .. WAS GIVEN REGLAN .. RELA+NICKI ATE BREAKFAST BUT NOT LUNCH Objective - Vital Signs/Intake and Output Vital Signs (last 24 hours): Temp Pulse Resp BP Pulse Ox 97.9 F 109 H 20 144/90 100 07/26/18 12:45 07/26/18 12:45 07/26/18 12:45 07/26/18 12:45 07/26/18 12:45 Intake and Output: 07/26/18 07/26/18 06:59 18:59 Intake Total 120 Balance 120 - Medications Medications: Current Medications Calcium Acetate (Phoslo) 667 mg PO TIDCC [facility] Last Admin: 07/26/18 11:40 Dose: Not Given Clonidine HCl (Catapres) 0.2 mg PO BID [facility] Last Admin: 07/26/18 09:45 Dose: Not Given Diphenhydramine HCl (Benadryl) 50 mg PO MWF PRN PRN Reason: itchiness Diphenhydramine HCl (Benadryl) 25 mg PO Q4 PRN PRN Reason: Itching / Pruritus Last Admin: 07/26/18 13:07 Dose: 25 mg Docusate Sodium (Colace) 100 mg PO TID [facility] Last Admin: 07/26/18 13:31 Dose: 100 mg Epoetin James (Procrit) 10,000 unit IV MWF [facility] Stop: 08/02/18 23:59 Last Admin: 07/26/18 09:46 Dose: 10,000 unit Ergocalciferol (Drisdol 50,000 Intl Units Cap) 1 cap PO QWK [facility] Last Admin: 07/26/18 09:38 Dose: Not Given Gabapentin (Neurontin) 300 mg PO BID [facility] Last Admin: 07/26/18 09:46 Dose: Not Given Hydromorphone HCl (Dilaudid) 2 mg IVP Q4 PRN PRN Reason: Pain, moderate (4-7) Last Admin: 07/26/18 13:07 Dose: 2 mg Vancomycin/Sodium Chloride (Vancomycin 1 Gm/Ns 200 Ml) 1 gm in 200 mls @ 166.7 mls/hr IVPB TTS [facility]; Protocol Stop: 07/30/18 10:01 Last Admin: 07/25/18 12:39 Dose: 166.7 mls/hr Insulin Glargine (Lantus) 10 unit SC HS [facility] Last Admin: 07/25/18 22:18 Dose: 10 units Insulin Human Regular (Novolin R) 0 unit SC ACHS [facility]; Protocol Last Admin: 07/26/18 11:39 Dose: Not Given Metoclopramide HCl (Reglan) 10 mg IM Q8 PRN PRN Reason: Nausea/Vomiting Last Admin: 07/26/18 13:06 Dose: 10 mg Mupirocin (Bactroban Ointment) 0 gm TOP BID [facility] Last Admin: 07/26/18 09:45 Dose: Not Given Ondansetron HCl (Zofran Odt) 8 mg PO Q6 PRN PRN Reason: Nausea/Vomiting Last Admin: 07/23/18 10:35 Dose: 8 mg Pantoprazole Sodium (Protonix Ec Tab) 40 mg PO DAILY [facility] Last Admin: 07/26/18 09:46 Dose: Not Given Vitamin A (Vitamin A & D Oint Ud Foilpak) 1 ea TOP BID [facility] Last Admin: 07/26/18 09:46 Dose: Not Given Vitamin B Complex/Vit C/Folic Acid (Nephro-Vamshi) 1 tab PO 0800 [facility] Last Admin: 07/26/18 08:28 Dose: 1 tab - Labs Labs: 07/24/18 08:43 07/24/18 08:43 Assessment and Plan - Assessment and Plan (Free Text) Assessment: ESRD ON HD M W F AND SAT ANEMIA OF CKD .. ON EPO ELECTROLYTES ABN .. DU OK MMP P : C/O CURRENT CARE C/O PRESENT MREDS C/O HD
--- NOTE | 2018-07-26 18:16 | CP.PCM.PN ---
Subjective - Date & Time of Evaluation Date of Evaluation: 07/26/18 Time of Evaluation: 08:00 - Subjective Subjective: discussed with Dr Phillips and Anshul Sexton IV rx renewed Objective - Vital Signs/Intake and Output Vital Signs (last 24 hours): Temp Pulse Resp BP Pulse Ox 98.5 F 79 20 149/87 100 07/26/18 16:00 07/26/18 16:00 07/26/18 16:00 07/26/18 16:00 07/26/18 16:00 Intake and Output: 07/26/18 07/26/18 06:59 18:59 Intake Total 120 Balance 120 - Medications Medications: Current Medications Calcium Acetate (Phoslo) 667 mg PO TIDCC [facility] Last Admin: 07/26/18 11:40 Dose: Not Given Clonidine HCl (Catapres) 0.2 mg PO BID [facility] Last Admin: 07/26/18 09:45 Dose: Not Given Diphenhydramine HCl (Benadryl) 50 mg PO MWF PRN PRN Reason: itchiness Diphenhydramine HCl (Benadryl) 25 mg PO Q4 PRN PRN Reason: Itching / Pruritus Last Admin: 07/26/18 17:07 Dose: 25 mg Docusate Sodium (Colace) 100 mg PO TID [facility] Last Admin: 07/26/18 13:31 Dose: 100 mg Epoetin James (Procrit) 10,000 unit IV MWF [facility] Stop: 08/02/18 23:59 Last Admin: 07/26/18 09:46 Dose: 10,000 unit Ergocalciferol (Drisdol 50,000 Intl Units Cap) 1 cap PO QWK [facility] Last Admin: 07/26/18 09:38 Dose: Not Given Gabapentin (Neurontin) 300 mg PO BID [facility] Last Admin: 07/26/18 09:46 Dose: Not Given Hydromorphone HCl (Dilaudid) 2 mg IVP Q4 PRN PRN Reason: Pain, moderate (4-7) Last Admin: 07/26/18 17:07 Dose: 2 mg Vancomycin/Sodium Chloride (Vancomycin 1 Gm/Ns 200 Ml) 1 gm in 200 mls @ 166.7 mls/hr IVPB TTS [facility]; Protocol Stop: 07/30/18 10:01 Last Admin: 07/25/18 12:39 Dose: 166.7 mls/hr Insulin Glargine (Lantus) 10 unit SC HS [facility] Last Admin: 07/25/18 22:18 Dose: 10 units Insulin Human Regular (Novolin R) 0 unit SC ACHS [facility]; Protocol Last Admin: 07/26/18 11:39 Dose: Not Given Metoclopramide HCl (Reglan) 10 mg IM Q8 PRN PRN Reason: Nausea/Vomiting Last Admin: 07/26/18 13:06 Dose: 10 mg Mupirocin (Bactroban Ointment) 0 gm TOP BID [facility] Last Admin: 07/26/18 09:45 Dose: Not Given Ondansetron HCl (Zofran Odt) 8 mg PO Q6 PRN PRN Reason: Nausea/Vomiting Last Admin: 07/23/18 10:35 Dose: 8 mg Pantoprazole Sodium (Protonix Ec Tab) 40 mg PO DAILY [facility] Last Admin: 07/26/18 09:46 Dose: Not Given Vitamin A (Vitamin A & D Oint Ud Foilpak) 1 ea TOP BID [facility] Last Admin: 07/26/18 09:46 Dose: Not Given Vitamin B Complex/Vit C/Folic Acid (Nephro-Vamshi) 1 tab PO 0800 [facility] Last Admin: 07/26/18 08:28 Dose: 1 tab - Labs Labs: 07/24/18 08:43 07/24/18 08:43 Assessment and Plan (1) Abscess of left groin Status: Acute (2) ESRD (end stage renal disease) on dialysis Status: Acute
[2018-07-26] MEDS: (Lantus) Insulin Glargine, Recombinant SC SCH (21:48)
[2018-07-27] MEDS: (Novolin R) Insulin Human Regular 100 units/ml vial SC SCH ×4 (08:30→21:13)
[2018-07-27] MEDS: Multivitamin Vitamin B Complex (Nephro-Vite) Tab PO SCH (08:53)
[2018-07-27] MEDS: Pantoprazole 40 mg EC Tab PO SCH (09:18)
[2018-07-27] MEDS: Vitamins A & D Oint UD Foilpak TOP SCH ×2 (09:24→17:56)
[2018-07-27] MEDS: Vancomycin 1 gm/NS 200 ml 1 GM/200 ML BAG IVPB SCH (09:28)
[2018-07-27 18:17] LABS: BASO # 0.1 K/uL (0.0-0.2); BASO % 1.3 % (0.0-2.0); EOS # 1.1 K/uL (0.0-0.7); EOS % 16.3 % (0.0-4.0); HEMOGLOBIN 8.9 g/dL (11.0-16.0); LYMPH # 1.3 K/uL (1.0-4.3); LYMPH % 19.7 % (20.0-40.0); MEAN CELL VOLUME 96.2 fL (81.0-99.0); MEAN CORPUSCULAR HEMOGLOBIN 30.7 pg (27.0-31.0); MEAN CORPUSCULAR HGB CONC 31.9 g/dL (33.0-37.0); MEAN PLATELET VOLUME 7.7 fL (7.2-11.7); MONO # 0.5 K/uL (0.0-0.8); MONO % 8.3 % (0.0-10.0); NEUT # 3.6 K/uL (1.8-7.0); NEUT % 54.4 % (50.0-75.0); NRBC % 0.3 % (0.0-2.0); RBC 2.9 Mil/uL (3.80-5.20); RED CELL DISTRIBUTION WIDTH 16.1 % (11.5-14.5); WHITE BLOOD COUNT 6.6 K/uL (4.8-10.8)
[2018-07-27 18:41] LABS: CALCIUM 8.4 mg/dl (8.6-10.4)
--- NOTE | 2018-07-27 18:41 | CP.PCM.PN ---
Subjective - Date & Time of Evaluation Date of Evaluation: 07/27/18 Time of Evaluation: 15:00 - Subjective Subjective: SEEN ON RENAL F/U SEEN ON HD .. GETTING EXTRA HD X 3H FEELS IMPROVED Objective - Vital Signs/Intake and Output Vital Signs (last 24 hours): Temp Pulse Resp BP Pulse Ox 98 F 95 H 18 146/93 H 98 07/27/18 18:00 07/27/18 18:00 07/27/18 18:00 07/27/18 18:30 07/27/18 18:00 Intake and Output: 07/27/18 07/27/18 06:59 18:59 Intake Total 1020 Balance 1020 - Medications Medications: Current Medications Calcium Acetate (Phoslo) 667 mg PO TIDCC [facility] Last Admin: 07/27/18 17:56 Dose: Not Given Clonidine HCl (Catapres) 0.2 mg PO BID [facility] Last Admin: 07/27/18 17:56 Dose: Not Given Diphenhydramine HCl (Benadryl) 50 mg PO MWF PRN PRN Reason: itchiness Last Admin: 07/27/18 01:06 Dose: 50 mg Diphenhydramine HCl (Benadryl) 25 mg PO Q4 PRN PRN Reason: Itching / Pruritus Last Admin: 07/27/18 17:29 Dose: 25 mg Docusate Sodium (Colace) 100 mg PO TID [facility] Last Admin: 07/27/18 17:56 Dose: Not Given Epoetin James (Procrit) 10,000 unit IV MWF [facility] Stop: 08/02/18 23:59 Last Admin: 07/26/18 09:46 Dose: 10,000 unit Ergocalciferol (Drisdol 50,000 Intl Units Cap) 1 cap PO QWK [facility] Last Admin: 07/26/18 09:38 Dose: Not Given Gabapentin (Neurontin) 300 mg PO BID [facility] Last Admin: 07/27/18 17:56 Dose: Not Given Hydromorphone HCl (Dilaudid) 2 mg IVP Q4 PRN PRN Reason: Pain, moderate (4-7) Last Admin: 07/27/18 17:29 Dose: 2 mg Vancomycin/Sodium Chloride (Vancomycin 1 Gm/Ns 200 Ml) 1 gm in 200 mls @ 166.7 mls/hr IVPB TTS [facility]; Protocol Stop: 07/30/18 10:01 Last Admin: 07/27/18 09:28 Dose: 166.7 mls/hr Insulin Glargine (Lantus) 10 unit SC HS [facility] Last Admin: 07/26/18 21:48 Dose: 10 units Insulin Human Regular (Novolin R) 0 unit SC ACHS [facility]; Protocol Last Admin: 07/27/18 17:30 Dose: 3 units Metoclopramide HCl (Reglan) 10 mg IM Q8 PRN PRN Reason: Nausea/Vomiting Last Admin: 07/26/18 13:06 Dose: 10 mg Mupirocin (Bactroban Ointment) 0 gm TOP BID [facility] Last Admin: 07/27/18 17:55 Dose: Not Given Ondansetron HCl (Zofran Odt) 8 mg PO Q6 PRN PRN Reason: Nausea/Vomiting Last Admin: 07/23/18 10:35 Dose: 8 mg Pantoprazole Sodium (Protonix Ec Tab) 40 mg PO DAILY [facility] Last Admin: 07/27/18 09:18 Dose: 40 mg Vitamin A (Vitamin A & D Oint Ud Foilpak) 1 ea TOP BID [facility] Last Admin: 07/27/18 17:56 Dose: Not Given Vitamin B Complex/Vit C/Folic Acid (Nephro-Vamshi) 1 tab PO 0800 [facility] Last Admin: 07/27/18 08:53 Dose: 1 tab - Labs Labs: 07/27/18 18:11 07/24/18 08:43 Assessment and Plan - Assessment and Plan (Free Text) Assessment: ESRD ON HD M W F AND SAT ANEMIA OF CKD .. H/H STABLE ELECTROLYTES ABN .. OK MMP P : C/O CURRENT CARE C/O PRESENT MEDS C/O HD
--- NOTE | 2018-07-27 21:33 | CP.PCM.PN ---
Subjective - Date & Time of Evaluation Date of Evaluation: 07/27/18 Time of Evaluation: 07:30 - Subjective Subjective: clinically same Objective - Vital Signs/Intake and Output Vital Signs (last 24 hours): Temp Pulse Resp BP Pulse Ox 98 F 95 H 18 141/97 H 98 07/27/18 18:00 07/27/18 18:00 07/27/18 18:00 07/27/18 20:00 07/27/18 18:00 Intake and Output: 07/27/18 07/28/18 18:59 06:59 Intake Total 1020 Balance 1020 - Medications Medications: Current Medications Calcium Acetate (Phoslo) 667 mg PO T[facility]CC [facility] Last Admin: 07/27/18 17:56 Dose: Not Given Clonidine HCl (Catapres) 0.2 mg PO BID [facility] Last Admin: 07/27/18 17:56 Dose: Not Given Diphenhydramine HCl (Benadryl) 50 mg PO MWF PRN PRN Reason: itchiness Last Admin: 07/27/18 01:06 Dose: 50 mg Diphenhydramine HCl (Benadryl) 25 mg PO Q4 PRN PRN Reason: Itching / Pruritus Last Admin: 07/27/18 17:29 Dose: 25 mg Docusate Sodium (Colace) 100 mg PO TID [facility] Last Admin: 07/27/18 17:56 Dose: Not Given Epoetin James (Procrit) 10,000 unit IV MWF [facility] Stop: 08/02/18 23:59 Last Admin: 07/26/18 09:46 Dose: 10,000 unit Ergocalciferol (Drisdol 50,000 Intl Units Cap) 1 cap PO QWK [facility] Last Admin: 07/26/18 09:38 Dose: Not Given Gabapentin (Neurontin) 300 mg PO BID [facility] Last Admin: 07/27/18 17:56 Dose: Not Given Hydromorphone HCl (Dilaudid) 2 mg IVP Q4 PRN PRN Reason: Pain, moderate (4-7) Last Admin: 07/27/18 17:29 Dose: 2 mg Vancomycin/Sodium Chloride (Vancomycin 1 Gm/Ns 200 Ml) 1 gm in 200 mls @ 166.7 mls/hr IVPB [facility]; Protocol Stop: 07/30/18 10:01 Last Admin: 07/27/18 09:28 Dose: 166.7 mls/hr Insulin Glargine (Lantus) 10 unit SC HS [facility] Last Admin: 07/26/18 21:48 Dose: 10 units Insulin Human Regular (Novolin R) 0 unit SC ACHS [facility]; Protocol Last Admin: 07/27/18 21:13 Dose: Not Given Metoclopramide HCl (Reglan) 10 mg IM Q8 PRN PRN Reason: Nausea/Vomiting Last Admin: 07/26/18 13:06 Dose: 10 mg Mupirocin (Bactroban Ointment) 0 gm TOP BID [facility] Last Admin: 07/27/18 17:55 Dose: Not Given Ondansetron HCl (Zofran Odt) 8 mg PO Q6 PRN PRN Reason: Nausea/Vomiting Last Admin: 07/23/18 10:35 Dose: 8 mg Pantoprazole Sodium (Protonix Ec Tab) 40 mg PO DAILY [facility] Last Admin: 07/27/18 09:18 Dose: 40 mg Vitamin A (Vitamin A & D Oint Ud Foilpak) 1 ea TOP BID [facility] Last Admin: 07/27/18 17:56 Dose: Not Given Vitamin B Complex/Vit C/Folic Acid (Nephro-Vamshi) 1 tab PO 0800 [facility] Last Admin: 07/27/18 08:53 Dose: 1 tab - Labs Labs: 07/27/18 18:11 07/27/18 18:11
[2018-07-27] MEDS: (Lantus) Insulin Glargine, Recombinant SC SCH (21:50)
[2018-07-28] MEDS: Multivitamin Vitamin B Complex (Nephro-Vite) Tab PO SCH (08:19)
[2018-07-28] MEDS: (Novolin R) Insulin Human Regular 100 units/ml vial SC SCH ×4 (08:19→21:52)
[2018-07-28] MEDS: Vitamins A & D Oint UD Foilpak TOP SCH ×2 (09:46→17:44)
[2018-07-28] MEDS: Pantoprazole 40 mg EC Tab PO SCH (09:46)
--- NOTE | 2018-07-28 15:34 | CP.PCM.PN ---
Subjective - Date & Time of Evaluation Date of Evaluation: 07/28/18 Time of Evaluation: 08:00 - Subjective Subjective: iv rx renewed alert nad Objective - Vital Signs/Intake and Output Vital Signs (last 24 hours): Temp Pulse Resp BP Pulse Ox 97.9 F 91 H 20 183/112 H 99 07/28/18 08:23 07/28/18 08:23 07/28/18 08:23 07/28/18 08:23 07/28/18 08:23 Intake and Output: 07/28/18 07/28/18 06:59 18:59 Intake Total 540 200 Balance 540 200 - Medications Medications: Current Medications Calcium Acetate (Phoslo) 667 mg PO TIDCC [facility] Last Admin: 07/28/18 12:32 Dose: 667 mg Clonidine HCl (Catapres) 0.2 mg PO BID [facility] Last Admin: 07/28/18 09:47 Dose: 0.2 mg Diphenhydramine HCl (Benadryl) 50 mg PO MWF PRN PRN Reason: itchiness Last Admin: 07/28/18 13:46 Dose: 50 mg Diphenhydramine HCl (Benadryl) 25 mg PO Q4 PRN PRN Reason: Itching / Pruritus Last Admin: 07/28/18 05:48 Dose: 25 mg Docusate Sodium (Colace) 100 mg PO TID [facility] Last Admin: 07/28/18 13:46 Dose: 100 mg Epoetin James (Procrit) 10,000 unit IV MWF [facility] Stop: 08/02/18 23:59 Last Admin: 07/26/18 09:46 Dose: 10,000 unit Ergocalciferol (Drisdol 50,000 Intl Units Cap) 1 cap PO QWK [facility] Last Admin: 07/26/18 09:38 Dose: Not Given Gabapentin (Neurontin) 300 mg PO BID [facility] Last Admin: 07/28/18 09:47 Dose: 300 mg Hydromorphone HCl (Dilaudid) 2 mg IVP Q4 PRN PRN Reason: Pain, moderate (4-7) Last Admin: 07/28/18 13:46 Dose: 2 mg Vancomycin/Sodium Chloride (Vancomycin 1 Gm/Ns 200 Ml) 1 gm in 200 mls @ 166.7 mls/hr IVPB TTS [facility]; Protocol Stop: 07/30/18 10:01 Last Admin: 07/27/18 09:28 Dose: 166.7 mls/hr Insulin Glargine (Lantus) 10 unit SC HS [facility] Last Admin: 07/27/18 21:50 Dose: 10 units Insulin Human Regular (Novolin R) 0 unit SC [facility]; Protocol Last Admin: 07/28/18 11:42 Dose: Not Given Metoclopramide HCl (Reglan) 10 mg IM Q8 PRN PRN Reason: Nausea/Vomiting Last Admin: 07/28/18 02:42 Dose: 10 mg Mupirocin (Bactroban Ointment) 0 gm TOP BID [facility] Last Admin: 07/28/18 09:57 Dose: 1 applic Ondansetron HCl (Zofran Odt) 8 mg PO Q6 PRN PRN Reason: Nausea/Vomiting Last Admin: 07/23/18 10:35 Dose: 8 mg Pantoprazole Sodium (Protonix Ec Tab) 40 mg PO DAILY [facility] Last Admin: 07/28/18 09:46 Dose: 40 mg Vitamin A (Vitamin A & D Oint Ud Foilpak) 1 ea TOP BID [facility] Last Admin: 07/28/18 09:46 Dose: 1 ea Vitamin B Complex/Vit C/Folic Acid (Nephro-Vamshi) 1 tab PO 0800 [facility] Last Admin: 07/28/18 08:19 Dose: 1 tab - Labs Labs: 07/27/18 18:11 07/27/18 18:11 - Constitutional Appears: Non-toxic, Chronically Ill - Head Exam Head Exam: NORMOCEPHALIC - Eye Exam Eye Exam: absent: Scleral icterus - ENT Exam ENT Exam: Mucous Membranes Dry - Neck Exam Neck Exam: absent: Lymphadenopathy - Respiratory Exam Respiratory Exam: Decreased Breath Sounds - Cardiovascular Exam Cardiovascular Exam: REGULAR RHYTHM - GI/Abdominal Exam GI & Abdominal Exam: Distended, Soft - Rectal Exam Rectal Exam: Deferred - Exam Exam: NORMAL INSPECTION Assessment and Plan (1) Abscess of left groin Status: Acute (2) ESRD (end stage renal disease) on dialysis Status: Acute - Assessment and Plan (Free Text) Assessment: cont rx as per Dr Phillips
--- NOTE | 2018-07-28 16:26 | CP.PCM.PN ---
Subjective - Date & Time of Evaluation Date of Evaluation: 07/28/18 Time of Evaluation: 07:30 - Subjective Subjective: clinically same Objective - Vital Signs/Intake and Output Vital Signs (last 24 hours): Temp Pulse Resp BP Pulse Ox 97.9 F 91 H 20 183/112 H 99 07/28/18 08:23 07/28/18 08:23 07/28/18 08:23 07/28/18 08:23 07/28/18 08:23 Intake and Output: 07/28/18 07/28/18 06:59 18:59 Intake Total 540 200 Balance 540 200 - Medications Medications: Current Medications Calcium Acetate (Phoslo) 667 mg PO TIDCC [facility] Last Admin: 07/28/18 12:32 Dose: 667 mg Clonidine HCl (Catapres) 0.2 mg PO BID [facility] Last Admin: 07/28/18 09:47 Dose: 0.2 mg Diphenhydramine HCl (Benadryl) 50 mg PO MWF PRN PRN Reason: itchiness Last Admin: 07/28/18 13:46 Dose: 50 mg Diphenhydramine HCl (Benadryl) 25 mg PO Q4 PRN PRN Reason: Itching / Pruritus Last Admin: 07/28/18 05:48 Dose: 25 mg Docusate Sodium (Colace) 100 mg PO TID [facility] Last Admin: 07/28/18 13:46 Dose: 100 mg Epoetin James (Procrit) 10,000 unit IV MWF [facility] Stop: 08/02/18 23:59 Last Admin: 07/26/18 09:46 Dose: 10,000 unit Ergocalciferol (Drisdol 50,000 Intl Units Cap) 1 cap PO QWK [facility] Last Admin: 07/26/18 09:38 Dose: Not Given Gabapentin (Neurontin) 300 mg PO BID [facility] Last Admin: 07/28/18 09:47 Dose: 300 mg Hydromorphone HCl (Dilaudid) 2 mg IVP Q4 PRN PRN Reason: Pain, moderate (4-7) Last Admin: 07/28/18 13:46 Dose: 2 mg Vancomycin/Sodium Chloride (Vancomycin 1 Gm/Ns 200 Ml) 1 gm in 200 mls @ 166.7 mls/hr IVPB TTS [facility]; Protocol Stop: 07/30/18 10:01 Last Admin: 07/27/18 09:28 Dose: 166.7 mls/hr Insulin Glargine (Lantus) 10 unit SC HS [facility] Last Admin: 07/27/18 21:50 Dose: 10 units Insulin Human Regular (Novolin R) 0 unit SC ACHS [facility]; Protocol Last Admin: 07/28/18 11:42 Dose: Not Given Metoclopramide HCl (Reglan) 10 mg IM Q8 PRN PRN Reason: Nausea/Vomiting Last Admin: 07/28/18 02:42 Dose: 10 mg Mupirocin (Bactroban Ointment) 0 gm TOP BID [facility] Last Admin: 07/28/18 09:57 Dose: 1 applic Ondansetron HCl (Zofran Odt) 8 mg PO Q6 PRN PRN Reason: Nausea/Vomiting Last Admin: 07/23/18 10:35 Dose: 8 mg Pantoprazole Sodium (Protonix Ec Tab) 40 mg PO DAILY [facility] Last Admin: 07/28/18 09:46 Dose: 40 mg Vitamin A (Vitamin A & D Oint Ud Foilpak) 1 ea TOP BID [facility] Last Admin: 07/28/18 09:46 Dose: 1 ea Vitamin B Complex/Vit C/Folic Acid (Nephro-Vamshi) 1 tab PO 0800 [facility] Last Admin: 07/28/18 08:19 Dose: 1 tab - Labs Labs: 07/27/18 18:11 07/27/18 18:11
[2018-07-28] MEDS: (Lantus) Insulin Glargine, Recombinant SC SCH (21:53)
[2018-07-29] MEDS: (Novolin R) Insulin Human Regular 100 units/ml vial SC SCH ×4 (07:33→21:38)
[2018-07-29] MEDS: Epoetin Alfa 10,000 unit/ml Dialysis IV SCH (09:38)
[2018-07-29] MEDS: Multivitamin Vitamin B Complex (Nephro-Vite) Tab PO SCH (09:51)
[2018-07-29] MEDS: Vitamins A & D Oint UD Foilpak TOP SCH ×2 (09:52→17:44)
[2018-07-29] MEDS: Pantoprazole 40 mg EC Tab PO SCH (09:52)
--- NOTE | 2018-07-29 18:57 | CP.PCM.PN ---
Subjective - Date & Time of Evaluation Date of Evaluation: 07/29/18 Time of Evaluation: 07:30 - Subjective Subjective: clinically same Objective - Vital Signs/Intake and Output Vital Signs (last 24 hours): Temp Pulse Resp BP Pulse Ox 97.9 F 108 H 20 132/75 98 07/29/18 15:00 07/29/18 15:00 07/29/18 15:00 07/29/18 15:00 07/29/18 15:00 Intake and Output: 07/29/18 07/29/18 06:59 18:59 Intake Total 480 240 Balance 480 240 - Medications Medications: Current Medications Calcium Acetate (Phoslo) 667 mg PO TIDCC [facility] Last Admin: 07/29/18 17:44 Dose: 667 mg Clonidine HCl (Catapres) 0.2 mg PO BID [facility] Last Admin: 07/29/18 17:44 Dose: 0.2 mg Diphenhydramine HCl (Benadryl) 50 mg PO MWF PRN PRN Reason: itchiness Last Admin: 07/29/18 09:46 Dose: 50 mg Diphenhydramine HCl (Benadryl) 25 mg PO Q4 PRN PRN Reason: Itching / Pruritus Last Admin: 07/29/18 17:44 Dose: 25 mg Docusate Sodium (Colace) 100 mg PO TID [facility] Last Admin: 07/29/18 17:44 Dose: 100 mg Epoetin James (Procrit) 10,000 unit IV MWF [facility] Stop: 08/02/18 23:59 Last Admin: 07/29/18 09:38 Dose: 10,000 unit Ergocalciferol (Drisdol 50,000 Intl Units Cap) 1 cap PO QWK [facility] Last Admin: 07/26/18 09:38 Dose: Not Given Gabapentin (Neurontin) 300 mg PO BID [facility] Last Admin: 07/29/18 17:44 Dose: 300 mg Hydromorphone HCl (Dilaudid) 2 mg IVP Q4 PRN PRN Reason: Pain, moderate (4-7) Last Admin: 07/29/18 17:44 Dose: 2 mg Vancomycin/Sodium Chloride (Vancomycin 1 Gm/Ns 200 Ml) 1 gm in 200 mls @ 166.7 mls/hr IVPB TTS [facility]; Protocol Stop: 07/30/18 10:01 Last Admin: 12/15/18 09:28 Dose: 166.7 mls/hr Insulin Glargine (Lantus) 10 unit SC HS [facility] Last Admin: 07/28/18 21:53 Dose: 10 units Insulin Human Regular (Novolin R) 0 unit SC ACHS [facility]; Protocol Last Admin: 07/29/18 17:30 Dose: 2 units Metoclopramide HCl (Reglan) 10 mg IM Q8 PRN PRN Reason: Nausea/Vomiting Last Admin: 07/28/18 02:42 Dose: 10 mg Mupirocin (Bactroban Ointment) 0 gm TOP BID [facility] Last Admin: 07/29/18 17:43 Dose: 1 applic Ondansetron HCl (Zofran Odt) 8 mg PO Q6 PRN PRN Reason: Nausea/Vomiting Last Admin: 07/23/18 10:35 Dose: 8 mg Pantoprazole Sodium (Protonix Ec Tab) 40 mg PO DAILY [facility] Last Admin: 07/29/18 09:52 Dose: Not Given Vitamin A (Vitamin A & D Oint Ud Foilpak) 1 ea TOP BID [facility] Last Admin: 07/29/18 17:44 Dose: 1 ea Vitamin B Complex/Vit C/Folic Acid (Nephro-Vamshi) 1 tab PO 0800 [facility] Last Admin: 07/29/18 09:51 Dose: Not Given - Labs Labs: 07/27/18 18:11 07/27/18 18:11 - Constitutional Appears: Well - Head Exam Head Exam: ATRAUMATIC, NORMAL INSPECTION, NORMOCEPHALIC - Eye Exam Eye Exam: EOMI, Normal appearance, PERRL Pupil Exam: NORMAL ACCOMODATION, PERRL - ENT Exam ENT Exam: Mucous Membranes Moist, Normal Exam - Neck Exam Neck Exam: Full ROM, Normal Inspection. absent: Lymphadenopathy - Respiratory Exam Respiratory Exam: Decreased Breath Sounds - Cardiovascular Exam Cardiovascular Exam: REGULAR RHYTHM, +S1, +S2 - GI/Abdominal Exam GI & Abdominal Exam: Soft, Diminished Bowel Sounds - Rectal Exam Rectal Exam: Deferred
[2018-07-29] MEDS: (Lantus) Insulin Glargine, Recombinant SC SCH (21:46)
[2018-07-30] MEDS: Multivitamin Vitamin B Complex (Nephro-Vite) Tab PO SCH (08:08)
[2018-07-30] MEDS: (Novolin R) Insulin Human Regular 100 units/ml vial SC SCH ×4 (08:16→21:50)
[2018-07-30] MEDS: Vitamins A & D Oint UD Foilpak TOP SCH ×2 (09:52→17:57)
[2018-07-30] MEDS: Pantoprazole 40 mg EC Tab PO SCH (09:52)
[2018-07-30] MEDS: Vancomycin 1 gm/NS 200 ml 1 GM/200 ML BAG IVPB SCH (09:56)
--- NOTE | 2018-07-30 14:00 | CP.PCM.PN ---
Subjective - Date & Time of Evaluation Date of Evaluation: 07/30/18 Time of Evaluation: 08:15 - Subjective Subjective: clincially same Objective - Vital Signs/Intake and Output Vital Signs (last 24 hours): Temp Pulse Resp BP Pulse Ox 98.1 F 98 H 20 130/78 99 07/30/18 07:00 07/30/18 08:42 07/30/18 08:42 07/30/18 08:42 07/30/18 08:42 Intake and Output: 07/30/18 07/30/18 06:59 18:59 Intake Total 480 Balance 480 - Medications Medications: Current Medications Calcium Acetate (Phoslo) 667 mg PO TIDCC [facility] Last Admin: 07/30/18 12:48 Dose: 667 mg Clonidine HCl (Catapres) 0.2 mg PO BID [facility] Last Admin: 07/30/18 09:52 Dose: 0.2 mg Diphenhydramine HCl (Benadryl) 50 mg PO MWF PRN PRN Reason: itchiness Last Admin: 07/29/18 09:46 Dose: 50 mg Diphenhydramine HCl (Benadryl) 25 mg PO Q4 PRN PRN Reason: Itching / Pruritus Last Admin: 07/30/18 13:52 Dose: 25 mg Docusate Sodium (Colace) 100 mg PO TID [facility] Last Admin: 07/30/18 13:49 Dose: 100 mg Epoetin James (Procrit) 10,000 unit IV MWF [facility] Stop: 08/02/18 23:59 Last Admin: 07/29/18 09:38 Dose: 10,000 unit Ergocalciferol (Drisdol 50,000 Intl Units Cap) 1 cap PO QWK [facility] Last Admin: 07/26/18 09:38 Dose: Not Given Gabapentin (Neurontin) 300 mg PO BID [facility] Last Admin: 07/30/18 09:52 Dose: 300 mg Hydromorphone HCl (Dilaudid) 2 mg IVP Q4 PRN PRN Reason: Pain, moderate (4-7) Last Admin: 07/30/18 13:49 Dose: 2 mg Insulin Glargine (Lantus) 10 unit SC HS [facility] Last Admin: 07/29/18 21:46 Dose: 10 units Insulin Human Regular (Novolin R) 0 unit SC ACHS [facility]; Protocol Last Admin: 07/30/18 12:27 Dose: Not Given Metoclopramide HCl (Reglan) 10 mg IM Q8 PRN PRN Reason: Nausea/Vomiting Last Admin: 07/28/18 02:42 Dose: 10 mg Mupirocin (Bactroban Ointment) 0 gm TOP BID [facility] Last Admin: 07/30/18 11:00 Dose: Not Given Ondansetron HCl (Zofran Odt) 8 mg PO Q6 PRN PRN Reason: Nausea/Vomiting Last Admin: 07/30/18 07:41 Dose: 8 mg Pantoprazole Sodium (Protonix Ec Tab) 40 mg PO DAILY [facility] Last Admin: 07/30/18 09:52 Dose: 40 mg Vitamin A (Vitamin A & D Oint Ud Foilpak) 1 ea TOP BID [facility] Last Admin: 07/30/18 09:52 Dose: 1 ea Vitamin B Complex/Vit C/Folic Acid (Nephro-Vamshi) 1 tab PO 0800 [facility] Last Admin: 07/30/18 08:08 Dose: Not Given - Labs Labs: 07/27/18 18:11 07/27/18 18:11 - Constitutional Appears: Well - Head Exam Head Exam: ATRAUMATIC, NORMAL INSPECTION, NORMOCEPHALIC - Eye Exam Eye Exam: EOMI, Normal appearance, PERRL Pupil Exam: NORMAL ACCOMODATION, PERRL - ENT Exam ENT Exam: Mucous Membranes Moist, Normal Exam - Neck Exam Neck Exam: Full ROM, Normal Inspection. absent: Lymphadenopathy - Respiratory Exam Respiratory Exam: Decreased Breath Sounds - Cardiovascular Exam Cardiovascular Exam: REGULAR RHYTHM, +S1, +S2 - GI/Abdominal Exam GI & Abdominal Exam: Soft, Diminished Bowel Sounds - Rectal Exam Rectal Exam: Deferred
[2018-07-30] MEDS: (Lantus) Insulin Glargine, Recombinant SC SCH (21:56)
[2018-07-31] MEDS: (Novolin R) Insulin Human Regular 100 units/ml vial SC SCH ×4 (07:35→21:01)
[2018-07-31] MEDS: Multivitamin Vitamin B Complex (Nephro-Vite) Tab PO SCH (08:24)
--- NOTE | 2018-07-31 10:21 | CP.PCM.PN ---
Subjective - Date & Time of Evaluation Date of Evaluation: 07/31/18 Time of Evaluation: 10:00 - Subjective Subjective: SEEN ON RENAL F/U FEELS IMPROVED ON HD M W F AND SAT H/H DRIFTING DOWN .. INCREASE DOSE OF EPO Objective - Vital Signs/Intake and Output Vital Signs (last 24 hours): Temp Pulse Resp BP Pulse Ox 97.1 F L 87 20 158/94 H 100 07/31/18 07:53 07/31/18 07:53 07/31/18 07:53 07/31/18 07:53 07/31/18 07:53 Intake and Output: 07/31/18 07/31/18 06:59 18:59 Intake Total 50 Balance 50 - Medications Medications: Current Medications Calcium Acetate (Phoslo) 667 mg PO TIDCC [facility] Last Admin: 07/31/18 08:24 Dose: 667 mg Clonidine HCl (Catapres) 0.2 mg PO BID [facility] Last Admin: 07/30/18 17:56 Dose: 0.2 mg Diphenhydramine HCl (Benadryl) 50 mg PO MWF PRN PRN Reason: itchiness Last Admin: 07/29/18 09:46 Dose: 50 mg Diphenhydramine HCl (Benadryl) 25 mg PO Q4 PRN PRN Reason: Itching / Pruritus Last Admin: 07/31/18 08:24 Dose: 25 mg Docusate Sodium (Colace) 100 mg PO TID [facility] Last Admin: 07/30/18 17:56 Dose: 100 mg Epoetin James (Procrit) 10,000 unit IV MWF [facility] Stop: 08/02/18 23:59 Last Admin: 07/29/18 09:38 Dose: 10,000 unit Ergocalciferol (Drisdol 50,000 Intl Units Cap) 1 cap PO QWK [facility] Last Admin: 07/26/18 09:38 Dose: Not Given Gabapentin (Neurontin) 300 mg PO BID [facility] Last Admin: 07/30/18 17:56 Dose: 300 mg Hydromorphone HCl (Dilaudid) 2 mg IVP Q4 PRN PRN Reason: Pain, moderate (4-7) Last Admin: 07/31/18 08:24 Dose: 2 mg Insulin Glargine (Lantus) 10 unit SC HS [facility] Last Admin: 07/30/18 21:56 Dose: 10 units Insulin Human Regular (Novolin R) 0 unit SC ACHS [facility]; Protocol Last Admin: 07/31/18 07:35 Dose: Not Given Metoclopramide HCl (Reglan) 10 mg IM Q8 PRN PRN Reason: Nausea/Vomiting Last Admin: 07/28/18 02:42 Dose: 10 mg Mupirocin (Bactroban Ointment) 0 gm TOP BID [facility] Last Admin: 07/30/18 18:49 Dose: Not Given Ondansetron HCl (Zofran Odt) 8 mg PO Q6 PRN PRN Reason: Nausea/Vomiting Last Admin: 07/31/18 05:32 Dose: 8 mg Pantoprazole Sodium (Protonix Ec Tab) 40 mg PO DAILY [facility] Last Admin: 07/30/18 09:52 Dose: 40 mg Vitamin A (Vitamin A & D Oint Ud Foilpak) 1 ea TOP BID [facility] Last Admin: 07/30/18 17:57 Dose: 1 ea Vitamin B Complex/Vit C/Folic Acid (Nephro-Vamshi) 1 tab PO 0800 [facility] Last Admin: 07/31/18 08:24 Dose: 1 tab - Labs Labs: 07/27/18 18:11 07/27/18 18:11 Assessment and Plan - Assessment and Plan (Free Text) Assessment: ESRD ON HD M W F AND SAT .. TO BE C/O ANEMIA OF CKD .. ON EPO .. ADD IRON ELECTROLYTES ABN .. OK MMP P : C/O CURRENT CARE C/O PRESENT MANAGEMENT
[2018-07-31] MEDS: Vitamins A & D Oint UD Foilpak TOP SCH ×2 (10:54→18:44)
[2018-07-31] MEDS: Pantoprazole 40 mg EC Tab PO SCH (10:54)
[2018-07-31] MEDS: Epoetin Alfa 10,000 unit/ml Dialysis IV SCH (16:52)
[2018-07-31 18:48] VITALS: RESP 20; O2SAT 100
--- NOTE | 2018-07-31 20:59 | CP.PCM.PN ---
Subjective - Date & Time of Evaluation Date of Evaluation: 07/31/18 Time of Evaluation: 08:15 - Subjective Subjective: clinically same Objective - Vital Signs/Intake and Output Vital Signs (last 24 hours): Temp Pulse Resp BP Pulse Ox 98 F 100 H 20 119/76 100 07/31/18 18:30 07/31/18 18:30 07/31/18 18:30 07/31/18 18:30 07/31/18 18:30 - Medications Medications: Current Medications Calcium Acetate (Phoslo) 667 mg PO TIDCC [facility] Last Admin: 07/31/18 18:44 Dose: 667 mg Clonidine HCl (Catapres) 0.2 mg PO BID [facility] Last Admin: 07/31/18 17:30 Dose: Not Given Diphenhydramine HCl (Benadryl) 50 mg PO MWF PRN PRN Reason: itchiness Last Admin: 07/31/18 16:43 Dose: 50 mg Diphenhydramine HCl (Benadryl) 25 mg PO Q4 PRN PRN Reason: Itching / Pruritus Last Admin: 07/31/18 20:51 Dose: 25 mg Docusate Sodium (Colace) 100 mg PO TID [facility] Last Admin: 07/31/18 18:44 Dose: 100 mg Epoetin James (Procrit) 10,000 unit IV F [facility] Stop: 08/02/18 23:59 Last Admin: 07/31/18 16:52 Dose: 10,000 unit Ergocalciferol (Drisdol 50,000 Intl Units Cap) 1 cap PO QWK [facility] Last Admin: 07/26/18 09:38 Dose: Not Given Gabapentin (Neurontin) 300 mg PO BID [facility] Last Admin: 07/31/18 18:44 Dose: 300 mg Hydromorphone HCl (Dilaudid) 2 mg IVP Q4 PRN PRN Reason: Pain, moderate (4-7) Last Admin: 07/31/18 20:50 Dose: 2 mg Insulin Glargine (Lantus) 10 unit SC HS [facility] Last Admin: 07/30/18 21:56 Dose: 10 units Insulin Human Regular (Novolin R) 0 unit SC ACHS [facility]; Protocol Last Admin: 07/31/18 19:37 Dose: Not Given Metoclopramide HCl (Reglan) 10 mg IM Q8 PRN PRN Reason: Nausea/Vomiting Last Admin: 07/28/18 02:42 Dose: 10 mg Mupirocin (Bactroban Ointment) 0 gm TOP BID [facility] Last Admin: 07/31/18 19:33 Dose: 1 applic Ondansetron HCl (Zofran Odt) 8 mg PO Q6 PRN PRN Reason: Nausea/Vomiting Last Admin: 07/31/18 19:35 Dose: 8 mg Pantoprazole Sodium (Protonix Ec Tab) 40 mg PO DAILY [facility] Last Admin: 07/31/18 10:54 Dose: Not Given Vitamin A (Vitamin A & D Oint Ud Foilpak) 1 ea TOP BID [facility] Last Admin: 07/31/18 18:44 Dose: 1 ea Vitamin B Complex/Vit C/Folic Acid (Nephro-Vamshi) 1 tab PO 0800 [facility] Last Admin: 07/31/18 08:24 Dose: 1 tab - Labs Labs: 07/27/18 18:11 07/27/18 18:11 - Constitutional Appears: Well - Head Exam Head Exam: ATRAUMATIC, NORMAL INSPECTION, NORMOCEPHALIC - Eye Exam Eye Exam: EOMI, Normal appearance, PERRL Pupil Exam: NORMAL ACCOMODATION, PERRL - ENT Exam ENT Exam: Mucous Membranes Moist, Normal Exam - Neck Exam Neck Exam: Full ROM, Normal Inspection. absent: Lymphadenopathy - Respiratory Exam Respiratory Exam: Decreased Breath Sounds - Cardiovascular Exam Cardiovascular Exam: REGULAR RHYTHM, +S1 - GI/Abdominal Exam GI & Abdominal Exam: Soft, Diminished Bowel Sounds - Rectal Exam Rectal Exam: Deferred
[2018-07-31] MEDS: (Lantus) Insulin Glargine, Recombinant SC SCH (21:00)
[2018-07-31 23:21] VITALS: PULSE 105; TEMP 98.6
[2018-08-01 04:53] VITALS: BP 125/70
[2018-08-01] MEDS: (Novolin R) Insulin Human Regular 100 units/ml vial SC SCH ×2 (09:00→13:27)
[2018-08-01] MEDS: Multivitamin Vitamin B Complex (Nephro-Vite) Tab PO SCH (09:00)
[2018-08-01] MEDS: Vitamins A & D Oint UD Foilpak TOP SCH (09:01)
[2018-08-01] MEDS: Pantoprazole 40 mg EC Tab PO SCH (09:05)
--- NOTE | 2018-08-01 15:26 | CP.PCM.PN ---
Subjective - Date & Time of Evaluation Date of Evaluation: 08/01/18 Time of Evaluation: 10:00 - Subjective Subjective: alert and orientedx3, no acute distress or pain. Objective - Vital Signs/Intake and Output Vital Signs (last 24 hours): Temp Pulse Resp BP Pulse Ox 98.6 F 105 H 20 125/70 100 07/31/18 23:19 07/31/18 23:19 07/31/18 23:19 08/01/18 04:50 07/31/18 23:19 Intake and Output: 08/01/18 08/01/18 06:59 18:59 Intake Total 800 Balance 800 - Labs Labs: 07/27/18 18:11 07/27/18 18:11 Assessment and Plan - Assessment and Plan (Free Text) Assessment: 32 year old female with ESRD on HD, admitted with groin abscess, treated, and cleared by DR Pinto, seen and examined. Alert and oriented x3, no acute pain or distress. Discussed with DR Edilia Sexton, plan to discharge home today, will continue with HD, MWF and present meds at home. Advised to follow up with PMD in 1 week.
== END 2018-08-01 15:18 | disposition home or self-care (01) | DRG 144 ==
LOC: C.ER 21:00 → C.9E 23:01 → C.3T 23:41 → C.5S 07-30 11:13
PROVIDERS: ADMIT Internal Medicine Nephrology; ATTEND Internal Medicine Nephrology
PROC: 5A1D70Z Performance of Urinary Filtration, Intermittent, Less than 6 Hours Per Day (ICD-10-PCS; principal; 2018-07-20)
PROC: 5A1D70Z Performance of Urinary Filtration, Intermittent, Less than 6 Hours Per Day (ICD-10-PCS; 2018-07-22)
PROC: 5A1D70Z Performance of Urinary Filtration, Intermittent, Less than 6 Hours Per Day (ICD-10-PCS; 2018-07-24)
PROC: 5A1D70Z Performance of Urinary Filtration, Intermittent, Less than 6 Hours Per Day (ICD-10-PCS; 2018-07-27)
PROC: 5A1D70Z Performance of Urinary Filtration, Intermittent, Less than 6 Hours Per Day (ICD-10-PCS; 2018-07-29)
PROC: 5A1D70Z Performance of Urinary Filtration, Intermittent, Less than 6 Hours Per Day (ICD-10-PCS; 2018-07-31)
DX: T80.211A Bloodstream infection due to central venous catheter, initial encounter (principal); N18.6 End stage renal disease; I50.9 Heart failure, unspecified; I13.2 Hypertensive heart and chronic kidney disease with heart failure and with stage 5 chronic kidney disease, or end stage renal disease; L02.214 Cutaneous abscess of groin; E11.22 Type 2 diabetes mellitus with diabetic chronic kidney disease; E11.43 Type 2 diabetes mellitus with diabetic autonomic (poly)neuropathy; Y84.8 Other medical procedures as the cause of abnormal reaction of the patient, or of later complication, without mention of misadventure at the time of the procedure; J45.909 Unspecified asthma, uncomplicated; G47.30 Sleep apnea, unspecified; D63.1 Anemia in chronic kidney disease; E03.9 Hypothyroidism, unspecified; E78.00 Pure hypercholesterolemia, unspecified; K31.84 Gastroparesis; H40.9 Unspecified glaucoma; Z99.2 Dependence on renal dialysis; Z87.01 Personal history of pneumonia (recurrent); Z87.442 Personal history of urinary calculi; Z87.11 Personal history of peptic ulcer disease; Z90.49 Acquired absence of other specified parts of digestive tract; Z95.5 Presence of coronary angioplasty implant and graft; Z79.4 Long term (current) use of insulin

== ENCOUNTER 2018-08-16 14:47 | Inpatient (IN) | payer MEDICAID ==
[2018-08-16 14:47] VITALS: BMI 27.3
--- NOTE | 2018-08-16 15:15 | C.PDOC ---
History Of Present Illness 32 y/o female with a PMHx including dialysis (M-W-F), presents to the ED complaining of 2 days bodyaches, fevers, chills. Patient was dialyzed earlier today. Of note, she was seen here last month for groin abscess, which improved without surgery. Patient reports she was discharged, saw her PMD, who started her on antibiotics (cannot recall which) with significant improvement. Denies any abdominal pain, chest pain, SOB, neck stiffness, constipation, diarrhea, dark or bloody stools, vaginal discharge, or rashes. Patient also complains of a cough as well as mild headache. Headache is described as gradual onset, no associated focal neurological deficits, and not the worst of her life. On arrival patient is tachycardic, febrile, with O2 sat at 80% on room air. Code Sepsis initiated. Time Seen by Provider: 08/16/18 15:14 Chief Complaint (Nursing): Fever History Per: Patient History/Exam Limitations: no limitations Onset/Duration Of Symptoms: Days (x 2) Current Symptoms Are (Timing): Still Present Location Of Pain: Diffuse Myalgias, Headache Associated Symptoms: Fever, Chills Past Medical History Reviewed: Historical Data, Nursing Documentation, Vital Signs - Medical History PMH: Anemia, Anxiety, Asthma, Bronchitis, CHF, Diabetes, Fractures (LEFT FOOT), Gastritis, Gastrointestinal Ulcer (gastroparesis), Gall Bladder Disease, Hepatitis, HTN, Hypercholesterolemia, Hyperthyroidism, Hypothyroidism, Kidney Stones, Pancreatitis, Peripheral Edema, Pneumonia, End Stage Renal Disease, Chronic Kidney Disease, Seizures, Sleep Apnea, Chronic Pain Surgical History: Cholecystectomy, Coronary Stent - [facility] Procedures (07/17/18) ASSISTANCE WITH RESPIRATORY VENTILATION, 24-96 HRS, CPAP (11/27/16) CAUTERY TO STOP EPISTAX (03/22/14) CENTRAL VENOUS CATHETER PLACEMENT WITH GUIDANCE (11/06/14) DIALYSIS ARTERIOVENOSTOM (01/10/14) DILATION OF LEFT SUBCLAVIAN VEIN, PERCUTANEOUS APPROACH (09/03/17) DRAINAGE OF RIGHT FOOT SKIN, EXTERNAL APPROACH (07/17/16) DRAINAGE OF RIGHT LOWER ARM SKIN, EXTERNAL APPROACH (05/25/16) ESOPHAGOGASTRODUODENOSCOPY [EGD] W/CLOSED BIOPSY (03/03/14) EXCISION OF LEFT TOE PHALANX, OPEN APPROACH (07/12/17) EXCISION OF STOMACH, ENDO, DIAGN (05/09/16) EXTIRPATE MATTER FROM R LOW ARM SUBCU/FASCIA, PERC (05/25/16) EXTRACTION OF RIGHT FOOT SKIN, EXTERNAL APPROACH (05/25/16) EXTRACTION OF TOE NAIL, EXTERNAL APPROACH (07/12/17) FLEXIBLE SIGMOIDOSCOPY (10/26/14) FLUOROSCOPY OF LEFT SUBCLAVIAN VEIN USING OTHER CONTRAST (09/03/17) FLUOROSCOPY OF R JUGULAR VEIN USING L OSM CONTRAST, GUIDANCE (12/13/15) FLUOROSCOPY OF RIGHT SUBCLAVIAN VEIN, GUIDANCE (08/07/16) HEMODIALYSIS (04/05/15) INJECT INSULIN (12/23/12) INJECT/INFUSE ELECTROLYT (12/23/12) INJECT/INFUSE NEC (01/17/15) INSERT INFUSION DEV IN R INT JUGULAR VEIN, PERC (02/23/16) INSERT VAD RESERVOIR IN CHEST SUBCU/FASCIA, OPEN (08/19/17) INSERTION OF INFUSION DEV INTO R BASILIC VEIN, PERC APPROACH (04/18/16) INSERTION OF INFUSION DEV INTO R BRACH VEIN, PERC APPROACH (02/19/17) INSERTION OF INFUSION DEV INTO R SUBCLAV VEIN, PERC APPROACH (08/29/16) INSERTION OF INFUSION DEV INTO SUP VENA CAVA, PERC APPROACH (08/19/17) INSERTION OF INFUSION DEVICE INTO R ATRIUM, PERC APPROACH (12/13/15) INSERTION OF VAD INTO CHEST SUBCU/FASCIA, OPEN APPROACH (12/13/15) MEASURE OF CARDIAC SAMPL & PRESSURE, L HEART, PERC APPROACH (10/09/16) OTHER ENDOSCOPY OF SM INTEST (08/25/14) PACKED CELL TRANSFUSION (10/26/14) PERFORMANCE OF URINARY FILTRATION, MULTIPLE (03/19/17) PERFORMANCE OF URINARY FILTRATION, SINGLE (11/27/16) PLAIN RADIOGRAPHY OF LEFT HEART USING OTHER CONTRAST (10/09/16) PLAIN RADIOGRAPHY OF MULT COR ART USING OTH CONTRAST (10/09/16) PLICATION OF VENA CAVA (03/22/14) POST NASAL PAC FOR EPIST (03/22/14) REMOVAL OF VAD FROM TRUNK SUBCU/FASCIA, OPEN APPROACH (02/23/16) RESECTION OF TOE NAIL, EXTERNAL APPROACH (08/19/17) [facility]UNT (03/03/14) THERAPEUTIC ERYTHROCYTAPHERESIS (10/26/14) TRANSFUSE NONAUT RED BLOOD CELLS IN PERIPH VEIN, PERC (02/19/17) ULTRASONOGRAPHY OF RIGHT AND LEFT HEART, TRANSESOPHAGEAL (02/19/17) ULTRASONOGRAPHY OF RIGHT SUBCLAVIAN VEIN, GUIDANCE (08/29/16) ULTRASONOGRAPHY OF RIGHT UPPER EXTREMITY VEINS, GUIDANCE (02/19/17) VACCINATION NEC (10/26/14) VENOUS CATHETERIZATION FOR RENAL DIALYSIS (03/03/14) Family History: States: Unknown Family Hx - Social History Hx Tobacco Use: No Hx Alcohol Use: No Hx Substance Use: No - Immunization History Hx Tetanus Toxoid Vaccination: No Hx Influenza Vaccination: Yes (05/2017) Hx Pneumococcal Vaccination: No Review Of Systems Constitutional: Positive for: Fever, Chills Eyes: Negative for: Vision Change ENT: Negative for: Ear Pain, Ear Discharge Cardiovascular: Negative for: Chest Pain Respiratory: Negative for: Cough, Shortness of Breath Gastrointestinal: Negative for: Vomiting, Abdominal Pain, Diarrhea, Constipation, Melena, Hematochezia Musculoskeletal: Positive for: Other (body aches). Negative for: Neck Pain Neurological: Positive for: Headache. Negative for: Weakness, Numbness, Change in Speech, Altered Mental Status, Dizziness Physical Exam - Physical Exam Appears: Non-toxic, No Acute Distress, Other (Febrile, O2sat at 80%) Skin: Warm, Dry Head: Normacephalic Eye(s): bilateral: Normal Inspection, PERRL, EOMI Nose: Normal Oral Mucosa: Moist Tongue: Normal Appearing Lips: Normal Appearing Teeth: Normal Dentition Gingiva: Normal Appearing Throat: Normal, No Exudate Neck: Trachea Midline, Supple, Other (No meningeal signs- negative kernig's and brudzinskis) Chest: Other (Scar over sternum from prior osteomyelitis surgery, no erythema crepitus or drainage) Cardiovascular: Rhythm Regular, No Friction Rub Respiratory: No Accessory Muscle Use, No Rales, No Rhonchi, No Wheezing Gastrointestinal/Abdominal: Soft, No Tenderness, No Distention Extremity: Left: Other (LUE fistula intact with good bruit, good thrill, no crepitus or erythema), Bilateral: Normal Color And Temperature Pulses: Left Dorsalis Pedis: Normal, Right Dorsalis Pedis: Normal Neurological/Psych: Oriented x3, Normal Speech, Normal Cognition, Normal Motor ED Course And Treatment - Laboratory Results Result Diagrams: 08/16/18 16:36 08/16/18 16:36 - Other Rad CXR X-Ray: Read By Radiologist Interpretation: Accession No. : [id number]. Patient Name / ID : RAYMUNDO ROCHA / [id number]. Exam Date : 08/16/2018 15:50:05 ( Approved ). Study Comment : Sex / Age : F / 32Y. Creator : Carrol Garcia MD. Dictator : Carrol Garcia MD. 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 Approver2 : Report Date : 08/16/2018 16:03:43. My Comment : . Date of service: 08/16/2018. HISTORY: Sepsis Patient. COMPARISON: 07/17/2018. FINDINGS: Right-sided MediPort terminates at the cavoatrial junction. LUNGS: There is patchy airspace disease in both lungs. PLEURA: Suspect small effusions. No pneumothorax. CARDIOVASCULAR: Persistent moderate cardiomegaly and prominent central vasculature. No aortic atherosclerotic calcification present. OSSEOUS STRUCTURES: Within normal limits for the patient's age. VISUALIZED UPPER ABDOMEN: Normal. OTHER FINDINGS: None. IMPRESSION: Patchy airspace disease in both lungs concerning for multifocal pneumonia. Persistent moderate cardiomegaly and small effusions. Medical Decision Making Medical Decision Makin32 y/o F dialysis patient (last completed today), presents with bodyaches, fever, chills for 2 days. Patient arrives to the ED tachycardic, febrile, with O2 sat at 80% on room air. Code Sepsis initiated. No meningeal signs. No wheezes on exam. Likely PNA vs FLU given febrile w/ cough after HD. Plan: --blood gas --routine blood work with coag panel --blood cultures --urinalysis --urine cultures --flu swab --chest x-ray --EKG --Tylenol 650 mg PO --Tamiflu 75 mg PO --Started IV vanco and zosyn CXR read as indicative of multifocal pneumonia. +flu, tamiflu ordered 1645 Gentle hydration given hx of HD. No indication for 30cc/kg given HD, good pressure currently. lac <1, abx ordered. appreciate consult w/ Dr. Edilia Sexton: to admit to his service Pt in NAD satting at 100% on O2 Disposition - Disposition Disposition Time: 16:46 Condition: GOOD - Clinical Impression Clinical Impression: Influenza, Multifocal pneumonia - Scribe Statement The provider has reviewed the documentation as recorded by the Arun Beard Provider Attestation: All medical record entries made by the Arun were at my direction and personally dictated by me. I have reviewed the chart and agree that the record accurately reflects my personal performance of the history, physical exam, medical decision making, and the department course for this patient. I have also personally directed, reviewed, and agree with the discharge instructions and disposition.
[2018-08-16] MEDS: Piperacillin/Tazobact 3.375 GM in Sodium Chloride 100 ML IVPB SCH (16:05)
--- NOTE | 2018-08-16 16:07 | RAD ---
Date of service: 08/16/2018 HISTORY: Sepsis Patient COMPARISON: 07/17/2018. FINDINGS: Right-sided MediPort terminates at the cavoatrial junction. LUNGS: There is patchy airspace disease in both lungs. PLEURA: Suspect small effusions. No pneumothorax. CARDIOVASCULAR: Persistent moderate cardiomegaly and prominent central vasculature. No aortic atherosclerotic calcification present. OSSEOUS STRUCTURES: Within normal limits for the patient's age. VISUALIZED UPPER ABDOMEN: Normal. OTHER FINDINGS: None. IMPRESSION: Patchy airspace disease in both lungs concerning for multifocal pneumonia. Persistent moderate cardiomegaly and small effusions.
[2018-08-16] MEDS ORDERED: Vancomycin 1 GM 1 GM/250 ML BAG IVPB ONE (16:08)
[2018-08-16] MEDS ORDERED: Piperacillin/Tazobact 3.375 gm 100 ML IVPB ONE (16:08)
[2018-08-16 16:39] LABS: VENOUS BLOOD GAS BASE EXCESS 2.8 mmol/L (0.0-2.0); VENOUS BLOOD GAS PCO2 40 mmHg (40-60); VENOUS BLOOD GAS PO2 37 mm/Hg (30-55); VENOUS BLOOD PH 7.44 (7.32-7.43)
[2018-08-16 16:44] LABS: BASO # 0.1 K/uL (0.0-0.2); BASO % 0.9 % (0.0-2.0); EOS # 0.1 K/uL (0.0-0.7); EOS % 1.9 % (0.0-4.0); HEMOGLOBIN 10.1 g/dL (11.0-16.0); LYMPH # 0.4 K/uL (1.0-4.3); LYMPH % 6.6 % (20.0-40.0); MEAN CELL VOLUME 98.1 fL (81.0-99.0); MEAN CORPUSCULAR HEMOGLOBIN 31.8 pg (27.0-31.0); MEAN CORPUSCULAR HGB CONC 32.4 g/dL (33.0-37.0); MEAN PLATELET VOLUME 8.2 fL (7.2-11.7); MONO # 0.5 K/uL (0.0-0.8); MONO % 7.7 % (0.0-10.0); NEUT # 5.6 K/uL (1.8-7.0); NEUT % 82.9 % (50.0-75.0); RBC 3.17 Mil/uL (3.80-5.20); RED CELL DISTRIBUTION WIDTH 16.9 % (11.5-14.5); WHITE BLOOD COUNT 6.8 K/uL (4.8-10.8)
[2018-08-16 16:46] LABS: PLATELET COUNT 183 K/uL (130-400)
[2018-08-16 17:01] LABS: INR 1.3; PROTHROMBIN TIME 14.6 SECONDS (9.7-12.2)
[2018-08-16 17:08] LABS: ALB/GLOB RATIO 1.4 (1.0-2.1); ALBUMIN 4.1 g/dL (3.5-5.0); CALCIUM 7.7 mg/dl (8.6-10.4)
[2018-08-16 17:35] LABS: PARTIAL THROMBOPLASTIN TIME > 400 SECONDS (21-34)
[2018-08-16 17:39] LABS: EOSINOPHIL 5 % (0-4); LYMPHOCYTE 7 % (20-40); MONOCYTE 5 % (0-10); NEUTROPHIL 83 % (50-75); PLATELET ESTIMATE NORMAL (NORMAL); TOTAL CELLS COUNTED 100
[2018-08-16 17:40] LABS: ANISOCYTOSIS SLIGHT; HYPOCHROMIC SLIGHT; POIKILOCYTOSIS SLIGHT
[2018-08-16 17:41] LABS: MICROCYTOSIS SLIGHT
[2018-08-16 20:45] LABS: VENOUS BLOOD GAS BASE EXCESS 4.5 mmol/L (0.0-2.0); VENOUS BLOOD GAS PCO2 49 mmHg (40-60); VENOUS BLOOD GAS PO2 41 mm/Hg (30-55)
--- NOTE | 2018-08-16 21:19 | CP.PCM.HP ---
Past Patient History - Infectious Disease Hx of Infectious Diseases: None - Tetanus Immunizations Tetanus Immunization: Unknown - Past Medical History & Family History Past Medical History?: Yes - Past Social History Smoking Status: Never Smoked - CARDIAC Hx Congestive Heart Failure: Yes Hx Hypercholesterolemia: Yes Hx Hypertension: Yes Hx Peripheral Edema: Yes - PULMONARY Hx Asthma: Yes Hx Bronchitis: Yes Hx Pneumonia: Yes Hx Sleep Apnea: Yes - NEUROLOGICAL Hx Seizures: Yes - HEENT Hx HEENT Problems: Yes Hx Cataracts: Yes (BOTH EYES) Hx Glaucoma: Yes (BOTH EYES) - RENAL Hx Chronic Kidney Disease: Yes Hx Kidney Stones: Yes - ENDOCRINE/METABOLIC Hx Hyperthyroidism: Yes Hx Hypothyroidism: Yes - HEMATOLOGICAL/ONCOLOGICAL Hx Anemia: Yes - INTEGUMENTARY Hx Dermatological Problems: Yes Other/Comment: DRY ITCHY SKIN ;multiple/generalized dark spots on skin. left toe blister - MUSCULOSKELETAL/RHEUMATOLOGICAL Hx Fractures: Yes (LEFT FOOT) - GASTROINTESTINAL Hx Gall Bladder Disease: Yes Hx Gastritis: Yes Hx Pancreatitis: Yes - PSYCHIATRIC Hx Anxiety: Yes Hx Substance Use: No - SURGICAL HISTORY Hx Cholecystectomy: Yes Hx Coronary Stent: Yes - ANESTHESIA Hx Anesthesia: Yes Hx Anesthesia Reactions: No Hx Malignant Hyperthermia: No Meds Allergies/Adverse Reactions: Allergies Allergy/AdvReac Type Severity Reaction Status Date / Time ketorolac tromethamine Allergy RASH Verified 07/17/18 21:15 [From Toradol] latex Allergy RASH Verified 07/17/18 21:15 morphine Allergy RASH Verified 07/17/18 21:15 tramadol Allergy RASH Verified 07/17/18 21:15 Physical Exam - Constitutional Appears: Well - Head Exam Head Exam: ATRAUMATIC, NORMAL INSPECTION, NORMOCEPHALIC - Eye Exam Eye Exam: EOMI, Normal appearance, PERRL Pupil Exam: NORMAL ACCOMODATION, PERRL - ENT Exam ENT Exam: Mucous Membranes Moist, Normal Exam - Neck Exam Neck exam: Positive for: Normal Inspection - Respiratory Exam Respiratory Exam: Decreased Breath Sounds - Cardiovascular Exam Cardiovascular Exam: REGULAR RHYTHM, +S1, +S2 - GI/Abdominal Exam GI & Abdominal Exam: Diminished Bowel Sounds, Soft - Rectal Exam Rectal Exam: Deferred Results - Vital Signs Recent Vital Signs: Last Vital Signs Temp 100.3 F H 08/16/18 20:58 Pulse 106 H 08/16/18 20:58 Resp 20 08/16/18 20:58 BP 151/84 H 08/16/18 20:58 Pulse Ox 100 08/16/18 20:58 - Labs Result Diagrams: 08/16/18 16:36 08/16/18 16:36 Labs: Laboratory Results - last 24 hr 08/16/18 08/16/18 08/16/18 15:11 16:12 16:30 WBC RBC Hgb Hct MCV MCH MCHC RDW Plt Count MPV Neut % (Auto) Lymph % (Auto) [place] % (Auto) Eos % (Auto) Baso % (Auto) Neut # (Auto) Lymph # (Auto) [place] # (Auto) Eos # (Auto) Baso # (Auto) Neutrophils % (Manual) Lymphocytes % (Manual) Monocytes % (Manual) Eosinophils % (Manual) Platelet Estimate Hypochromasia (manual) Poikilocytosis (manual Anisocytosis (manual) Microcytosis (manual) PT INR APTT pO2 37 VBG pH 7.44 H VBG pCO2 40 VBG HCO3 26.5 VBG Total CO2 28.4 H VBG O2 Sat (Calc) 82.7 H VBG Base Excess 2.8 H VBG Potassium 3.1 L A-a O2 Difference Sodium 140.0 Chloride 106.0 Glucose 290 H Lactate 0.7 FiO2 21.0 Crit Value Called To Crit Value Called By Crit Value Read Back Blood Gas Notified Time Potassium Carbon Dioxide Anion Gap BUN Creatinine Est GFR ( Amer) Est GFR (Non-Af Amer) POC Glucose (mg/dL) 257 H Random Glucose Calcium Phosphorus Magnesium Total Bilirubin AST ALT Alkaline Phosphatase Total Protein Albumin Globulin Albumin/Globulin Ratio Venous Blood Potassium 3.1 L Influenza Typ A,B (EIA) Pos for influenza a H 08/16/18 08/16/18 08/16/18 16:36 16:36 16:36 WBC 6.8 RBC 3.17 L Hgb 10.1 L Hct 31.1 L MCV 98.1 MCH 31.8 H MCHC 32.4 L RDW 16.9 H Plt Count 183 D MPV 8.2 Neut % (Auto) 82.9 H Lymph % (Auto) 6.6 L [place] % (Auto) 7.7 Eos % (Auto) 1.9 Baso % (Auto) 0.9 Neut # (Auto) 5.6 Lymph # (Auto) 0.4 L [place] # (Auto) 0.5 Eos # (Auto) 0.1 Baso # (Auto) 0.1 Neutrophils % (Manual) 83 H Lymphocytes % (Manual) 7 L Monocytes % (Manual) 5 Eosinophils % (Manual) 5 H Platelet Estimate Normal Hypochromasia (manual) Slight Poikilocytosis (manual Slight Anisocytosis (manual) Slight Microcytosis (manual) Slight PT 14.6 H INR 1.3 APTT > 400 H* pO2 VBG pH VBG pCO2 VBG HCO3 VBG Total CO2 VBG O2 Sat (Calc) VBG Base Excess VBG Potassium A-a O2 Difference Sodium 136 Chloride 95 L Glucose Lactate FiO2 Crit Value Called To Crit Value Called By Crit Value Read Back Blood Gas Notified Time Potassium 3.8 Carbon Dioxide 30 Anion Gap 15 BUN 21 H Creatinine 3.7 H Est GFR ( Amer) 17 Est GFR (Non-Af Amer) 14 POC Glucose (mg/dL) Random Glucose 316 H Calcium 7.7 L Phosphorus 3.2 Magnesium 2.0 Total Bilirubin 0.6 AST 53 H ALT 37 Alkaline Phosphatase 180 H Total Protein 6.9 Albumin 4.1 Globulin 2.9 Albumin/Globulin Ratio 1.4 Venous Blood Potassium Influenza Typ A,B (EIA) 08/16/18 20:38 WBC RBC Hgb Hct MCV MCH MCHC RDW Plt Count MPV Neut % (Auto) Lymph % (Auto) [place] % (Auto) Eos % (Auto) Baso % (Auto) Neut # (Auto) Lymph # (Auto) [place] # (Auto) Eos # (Auto) Baso # (Auto) Neutrophils % (Manual) Lymphocytes % (Manual) Monocytes % (Manual) Eosinophils % (Manual) Platelet Estimate Hypochromasia (manual) Poikilocytosis (manual Anisocytosis (manual) Microcytosis (manual) PT INR APTT pO2 41 VBG pH 7.40 VBG pCO2 49 VBG HCO3 27.9 VBG Total CO2 31.9 H VBG O2 Sat (Calc) 84.7 H VBG Base Excess 4.5 H VBG Potassium 3.8 A-a O2 Difference 47.0 Sodium 136.0 Chloride 97.0 L Glucose 436 H* D Lactate 1.0 FiO2 21.0 Crit Value Called To Arsh robins Crit Value Called By Track Supervisor Crit Value Read Back Y Blood Gas Notified Time 2044 Potassium Carbon Dioxide Anion Gap BUN Creatinine Est GFR ( Amer) Est GFR (Non-Af Amer) POC Glucose (mg/dL) Random Glucose Calcium Phosphorus Magnesium Total Bilirubin AST ALT Alkaline Phosphatase Total Protein Albumin Globulin Albumin/Globulin Ratio Venous Blood Potassium 3.8 Influenza Typ A,B (EIA)
[2018-08-16] MEDS ORDERED: (Lantus) Insulin Glargine, Recombinant SC ONE (22:53)
[2018-08-16] MEDS: (Lantus) Insulin Glargine, Recombinant SC SCH (23:25)
[2018-08-17] MEDS: Piperacillin/Tazobact 3.375 GM in Sodium Chloride 100 ML IVPB SCH ×4 (00:46→22:39)
[2018-08-17] MEDS: Sucralfate 1 gm/10 ml Oral Susp UD PO SCH ×5 (00:47→21:58)
[2018-08-17] MEDS ORDERED: Benzocaine/Menthol (Cepacol) Lozenge MT ONE (01:48)
[2018-08-17] MEDS: Pantoprazole 40 mg EC Tab PO SCH (09:34)
--- NOTE | 2018-08-17 16:46 | CP.PCM.PN ---
Subjective - Date & Time of Evaluation Date of Evaluation: 08/17/18 Time of Evaluation: 16:45 - Subjective Subjective: on hd vss glenna proc consult dictated Objective - Vital Signs/Intake and Output Vital Signs (last 24 hours): Temp Pulse Resp BP Pulse Ox 99.3 F 92 H 20 123/78 100 08/17/18 13:40 08/17/18 13:40 08/17/18 13:40 08/17/18 16:10 08/17/18 13:40 - Medications Medications: Current Medications Acetaminophen (Tylenol 325mg Tab) 650 mg PO Q6 PRN PRN Reason: Fever >100.4 F Last Admin: 08/17/18 06:14 Dose: 650 mg Calcium Acetate (Phoslo) 667 mg PO TID [facility] Last Admin: 08/17/18 13:59 Dose: Not Given Clonidine HCl (Catapres) 0.3 mg PO BID [facility] Last Admin: 08/17/18 09:34 Dose: 0.3 mg Diphenhydramine HCl (Benadryl) 25 mg IVP Q3 PRN PRN Reason: Allergy symptoms Docusate Sodium (Colace) 100 mg PO TID [facility] Last Admin: 08/17/18 13:59 Dose: Not Given Gabapentin (Neurontin) 300 mg PO BID [facility] Last Admin: 08/17/18 09:34 Dose: 300 mg Heparin Sodium (Porcine) (Heparin) 5,000 units SC Q12 [facility] Last Admin: 08/17/18 09:34 Dose: Not Given Hydromorphone HCl (Dilaudid) 2 mg IVP Q3 PRN PRN Reason: Pain, moderate (4-7) Last Admin: 08/17/18 16:06 Dose: 2 mg Piperacillin Sod/Tazobactam (Sod 3.375 gm/ Sodium Chloride) 100 mls @ 200 mls/hr IVPB Q8H [facility]; Protocol Last Admin: 08/17/18 15:32 Dose: Not Given Insulin Glargine (Lantus) 25 unit SC HS [facility] Last Admin: 08/16/18 23:25 Dose: 25 units Oseltamivir Phosphate (Tamiflu Cap) 75 mg PO BID [facility]; Protocol Stop: 08/21/18 21:54 Last Admin: 08/17/18 09:32 Dose: 75 mg Pantoprazole Sodium (Protonix Ec Tab) 40 mg PO DAILY [facility] Last Admin: 08/17/18 09:34 Dose: 40 mg Sucralfate (Carafate Oral Susp) 1 gm PO QID [facility] Last Admin: 08/17/18 13:59 Dose: Not Given - Labs Labs: 08/16/18 16:36 08/16/18 16:36 PT 14.6 SECONDS (9.7-12.2) H 08/16/18 16:36 INR 1.3 08/16/18 16:36 APTT > 400 SECONDS (21-34) H* 08/16/18 16:36 - Constitutional Appears: Non-toxic - Head Exam Head Exam: NORMAL INSPECTION - Eye Exam Eye Exam: Normal appearance - ENT Exam ENT Exam: Mucous Membranes Moist - Neck Exam Neck Exam: Normal Inspection - Respiratory Exam Respiratory Exam: NORMAL BREATHING PATTERN - Cardiovascular Exam Cardiovascular Exam: REGULAR RHYTHM, Murmur - GI/Abdominal Exam GI & Abdominal Exam: Soft, Normal Bowel Sounds - Extremities Exam Extremities Exam: Full ROM - Back Exam Back Exam: NORMAL INSPECTION - Neurological Exam Neurological Exam: Alert, Awake, CN II-XII Intact - Psychiatric Exam Psychiatric exam: Normal Affect, Normal Mood - Skin Skin Exam: Dry, Normal Color, Warm
--- NOTE | 2018-08-17 21:28 | CP.PCM.PN ---
Subjective - Date & Time of Evaluation Date of Evaluation: 08/17/18 Time of Evaluation: 10:15 - Subjective Subjective: clinically same Objective - Vital Signs/Intake and Output Vital Signs (last 24 hours): Temp Pulse Resp BP Pulse Ox 101.1 F H 114 H 20 123/69 100 08/17/18 18:11 08/17/18 17:56 08/17/18 17:56 08/17/18 17:56 08/17/18 17:56 - Medications Medications: Current Medications Acetaminophen (Tylenol 325mg Tab) 650 mg PO Q6 PRN PRN Reason: Fever >100.4 F Last Admin: 08/17/18 18:11 Dose: 650 mg Calcium Acetate (Phoslo) 667 mg PO TID [facility] Last Admin: 08/17/18 18:10 Dose: 667 mg Clonidine HCl (Catapres) 0.3 mg PO BID [facility] Last Admin: 08/17/18 18:10 Dose: 0.3 mg Diphenhydramine HCl (Benadryl) 25 mg PO Q3H PRN PRN Reason: Allergy symptoms Docusate Sodium (Colace) 100 mg PO TID [facility] Last Admin: 08/17/18 18:11 Dose: 100 mg Gabapentin (Neurontin) 300 mg PO BID [facility] Last Admin: 08/17/18 18:10 Dose: 300 mg Heparin Sodium (Porcine) (Heparin) 5,000 units SC Q12 [facility] Last Admin: 08/17/18 21:19 Dose: Not Given Hydromorphone HCl (Dilaudid) 2 mg IVP Q3 PRN PRN Reason: Pain, moderate (4-7) Last Admin: 08/17/18 18:52 Dose: 2 mg Piperacillin Sod/Tazobactam (Sod 3.375 gm/ Sodium Chloride) 100 mls @ 200 mls/hr IVPB Q8H [facility]; Protocol Last Admin: 08/17/18 15:32 Dose: Not Given Insulin Glargine (Lantus) 25 unit SC HS [facility] Last Admin: 08/16/18 23:25 Dose: 25 units Oseltamivir Phosphate (Tamiflu Cap) 75 mg PO BID [facility]; Protocol Stop: 08/21/18 21:54 Last Admin: 08/17/18 18:10 Dose: 75 mg Pantoprazole Sodium (Protonix Ec Tab) 40 mg PO DAILY [facility] Last Admin: 08/17/18 09:34 Dose: 40 mg Sucralfate (Carafate Oral Susp) 1 gm PO QID [facility] Last Admin: 08/17/18 18:10 Dose: 1 gm - Labs Labs: 08/16/18 16:36 08/16/18 16:36 PT 14.6 SECONDS (9.7-12.2) H 08/16/18 16:36 INR 1.3 08/16/18 16:36 APTT > 400 SECONDS (21-34) H* 08/16/18 16:36
[2018-08-17] MEDS: (Lantus) Insulin Glargine, Recombinant SC SCH (22:06)
--- NOTE | 2018-08-18 02:04 | PCM.RRT ---
- Constitutional Appears: No Acute Distress - Head Head Exam: ATRAUMATIC, NORMAL INSPECTION - Eyes Eye Exam: EOMI, Normal appearance - Respiratory Exam Respiratory Exam: Clear to Ausculation Bilateral, NORMAL BREATHING PATTERN. ab sent: Rhonchi, Wheezes - Cardiovascular Exam Cardiovascular Exam: REGULAR RHYTHM, +S1, +S2 - GI/Abdominal Exam GI & Abdominal Exam: Soft, Normal Bowel Sounds. absent: Tenderness - Neurological Exam Neurological Exam: Alert, Awake, Oriented x3 - Extremities Exam Extremities Exam: Full ROM. absent: Pedal Edema, Tenderness Additional comments: excoriations b/l Plan - Assessment of Findings&Treatment Plan Code Star Called 01:49 Code star called for patient reporting a fall to nurse. Fall was unwitnessed. Patient stating she "must have been sleep walking" does not recall hitting head, no LOC. States she is only mildly dizzy since she has been febrile. Otherwise she has no complaints. Patient to go for CT head. We will follow up. Initial vitals: 124/27 97% NC 105 BPM 102.5 F Final Vitals: 129/71 98% nc 99 BPM 102.5 f
[2018-08-18] MEDS: Piperacillin/Tazobact 3.375 GM in Sodium Chloride 100 ML IVPB SCH ×3 (06:40→22:34)
--- NOTE | 2018-08-18 08:43 | CT ---
Date of service: 08/18/2018 PROCEDURE: CT HEAD WITHOUT CONTRAST. HISTORY: code star unwitnessed fall COMPARISON: None available. TECHNIQUE: Axial computed tomography images were obtained through the head/brain without intravenous contrast. Radiation dose: Total exam DLP = 1073.22 mGy-cm. This CT exam was performed using one or more of the following dose reduction techniques: Automated exposure control, adjustment of the mA and/or kV according to patient size, and/or use of iterative reconstruction technique. FINDINGS: HEMORRHAGE: No intracranial hemorrhage. BRAIN: No mass effect or edema. Intracranial atherosclerosis. The walden-white matter differentiation appears intact. Please note that MRI with diffusion imaging is more sensitive in the detection of acute ischemic event. VENTRICLES: No hydrocephalus. CALVARIUM: Unremarkable. PARANASAL SINUSES: Extensive mucosal thickening of the ethmoid air cells, sphenoid sinuses, and frontal sinuses. MASTOID AIR CELLS: Unremarkable as visualized. No inflammatory changes. OTHER FINDINGS: None. IMPRESSION: No acute intracranial pathology identified. Extensive sinusitis as above. Preliminary impression was provided by [employer].
[2018-08-18] MEDS: Sucralfate 1 gm/10 ml Oral Susp UD PO SCH ×4 (09:06→21:45)
[2018-08-18] MEDS: Pantoprazole 40 mg EC Tab PO SCH (09:06)
[2018-08-18] MEDS ORDERED: Vancomycin 1 gm/NS 200 ml 1 GM/200 ML BAG IVPB ONE (12:00)
[2018-08-18] MEDS ORDERED: Vitamins A & D Oint UD Foilpak TOP ONE (17:15)
--- NOTE | 2018-08-18 20:41 | CP.PCM.PN ---
Subjective - Date & Time of Evaluation Date of Evaluation: 08/18/18 Time of Evaluation: 08:45 - Subjective Subjective: clinically same Objective - Vital Signs/Intake and Output Vital Signs (last 24 hours): Temp Pulse Resp BP Pulse Ox 99.5 F 106 H 20 167/78 H 97 08/18/18 16:00 08/18/18 16:00 08/18/18 16:00 08/18/18 16:00 08/18/18 16:00 - Medications Medications: Current Medications Acetaminophen (Tylenol 325mg Tab) 650 mg PO Q6 PRN PRN Reason: Fever >100.4 F Last Admin: 08/18/18 09:06 Dose: 650 mg Calcium Acetate (Phoslo) 667 mg PO TID [facility] Last Admin: 08/18/18 17:25 Dose: 667 mg Clonidine HCl (Catapres) 0.3 mg PO BID [facility] Last Admin: 08/18/18 17:26 Dose: 0.3 mg Diphenhydramine HCl (Benadryl) 25 mg PO Q3H PRN PRN Reason: Allergy symptoms Docusate Sodium (Colace) 100 mg PO TID [facility] Last Admin: 08/18/18 17:25 Dose: 100 mg Gabapentin (Neurontin) 300 mg PO BID [facility] Last Admin: 08/18/18 17:26 Dose: 300 mg Heparin Sodium (Porcine) (Heparin) 5,000 units SC Q12 [facility] Last Admin: 08/18/18 09:13 Dose: Not Given Hydromorphone HCl (Dilaudid) 2 mg IVP Q3 PRN PRN Reason: Pain, moderate (4-7) Last Admin: 08/18/18 19:28 Dose: 2 mg Piperacillin Sod/Tazobactam (Sod 3.375 gm/ Sodium Chloride) 100 mls @ 200 mls/hr IVPB Q8H [facility]; Protocol Last Admin: 08/18/18 14:51 Dose: 200 mls/hr Insulin Glargine (Lantus) 25 unit SC HS [facility] Last Admin: 08/17/18 22:06 Dose: 25 units Oseltamivir Phosphate (Tamiflu Cap) 75 mg PO BID [facility]; Protocol Stop: 08/21/18 21:54 Last Admin: 08/18/18 17:10 Dose: 75 mg Pantoprazole Sodium (Protonix Ec Tab) 40 mg PO DAILY [facility] Last Admin: 08/18/18 09:06 Dose: 40 mg Sucralfate (Carafate Oral Susp) 1 gm PO QID [facility] Last Admin: 08/18/18 17:25 Dose: 1 gm - Labs Labs: 08/16/18 16:36 08/16/18 16:36 PT 14.6 SECONDS (9.7-12.2) H 08/16/18 16:36 INR 1.3 08/16/18 16:36 APTT > 400 SECONDS (21-34) H* 08/16/18 16:36
[2018-08-18] MEDS: (Lantus) Insulin Glargine, Recombinant SC SCH (21:57)
--- NOTE | 2018-08-18 23:21 | CP.PCM.CON ---
History of Present Illness - History of Present Illness History of Present Illness: 32 y/o female with a PMHx including dialysis (M-W-F), presents to the ED complaining of 2 days bodyaches, fevers, chills. Of note, she was seen here last month for groin abscess, which improved without surgery. Now presents with fever chills and bodyaches Has + flu A IV rx in progress cultures pending OF BLOOD Past Medical History Reviewed: Historical Data, Nursing Documentation, Vital Signs - Medical History PMH: Anemia, Anxiety, Asthma, Bronchitis, CHF, Diabetes, Fractures (LEFT FOOT), Gastritis, Gastrointestinal Ulcer (gastroparesis), Gall Bladder Disease, Hepatitis, HTN, Hypercholesterolemia, Hyperthyroidism, Hypothyroidism, Kidney Stones, Pancreatitis, Peripheral Edema, Pneumonia, End Stage Renal Disease, Chronic Kidney Disease, Seizures, Sleep Apnea, Chronic Pain Surgical History: Cholecystectomy, Coronary Stent - [facility] (07/17/18) ASSISTANCE WITH RESPIRATORY VENTILATION, 24-96 HRS, CPAP (11/27/16) CAUTERY TO STOP EPISTAX (03/22/14) CENTRAL VENOUS CATHETER PLACEMENT WITH GUIDANCE (11/06/14) DIALYSIS ARTERIOVENOSTOM (01/10/14) DILATION OF LEFT SUBCLAVIAN VEIN, PERCUTANEOUS APPROACH (09/03/17) DRAINAGE OF RIGHT FOOT SKIN, EXTERNAL APPROACH (07/17/16) DRAINAGE OF RIGHT LOWER ARM SKIN, EXTERNAL APPROACH (05/25/16) ESOPHAGOGASTRODUODENOSCOPY [EGD] W/CLOSED BIOPSY (03/03/14) EXCISION OF LEFT TOE PHALANX, OPEN APPROACH (07/12/17) EXCISION OF STOMACH, ENDO, DIAGN (05/09/16) EXTIRPATE MATTER FROM R LOW ARM SUBCU/FASCIA, PERC (05/25/16) EXTRACTION OF RIGHT FOOT SKIN, EXTERNAL APPROACH (05/25/16) EXTRACTION OF TOE NAIL, EXTERNAL APPROACH (07/12/17) FLEXIBLE SIGMOIDOSCOPY (10/26/14) FLUOROSCOPY OF LEFT SUBCLAVIAN VEIN USING OTHER CONTRAST (09/03/17) FLUOROSCOPY OF R JUGULAR VEIN USING L OSM CONTRAST, GUIDANCE (12/13/15) FLUOROSCOPY OF RIGHT SUBCLAVIAN VEIN, GUIDANCE (08/07/16) HEMODIALYSIS (04/05/15) INJECT INSULIN (12/23/12) INJECT/INFUSE ELECTROLYT (12/23/12) INJECT/INFUSE NEC (01/17/15) INSERT INFUSION DEV IN R INT JUGULAR VEIN, PERC (02/23/16) INSERT VAD RESERVOIR IN CHEST SUBCU/FASCIA, OPEN (08/19/17) INSERTION OF INFUSION DEV INTO R BASILIC VEIN, PERC APPROACH (04/18/16) INSERTION OF INFUSION DEV INTO R BRACH VEIN, PERC APPROACH (02/19/17) INSERTION OF INFUSION DEV INTO R SUBCLAV VEIN, PERC APPROACH (08/29/16) INSERTION OF INFUSION DEV INTO SUP VENA CAVA, PERC APPROACH (08/19/17) INSERTION OF INFUSION DEVICE INTO R ATRIUM, PERC APPROACH (12/13/15) INSERTION OF VAD INTO CHEST SUBCU/FASCIA, OPEN APPROACH (12/13/15) MEASURE OF CARDIAC SAMPL & PRESSURE, L HEART, PERC APPROACH (10/09/16) OTHER ENDOSCOPY OF SM INTEST (08/25/14) PACKED CELL TRANSFUSION (10/26/14) PERFORMANCE OF URINARY FILTRATION, MULTIPLE (03/19/17) PERFORMANCE OF URINARY FILTRATION, SINGLE (11/27/16) PLAIN RADIOGRAPHY OF LEFT HEART USING OTHER CONTRAST (10/09/16) PLAIN RADIOGRAPHY OF MULT COR ART USING OTH CONTRAST (10/09/16) PLICATION OF VENA CAVA (03/22/14) POST NASAL PAC FOR EPIST (03/22/14) REMOVAL OF VAD FROM TRUNK SUBCU/FASCIA, OPEN APPROACH (02/23/16) RESECTION OF TOE NAIL, EXTERNAL APPROACH (08/19/17) [facility] (03/03/14) THERAPEUTIC ERYTHROCYTAPHERESIS (10/26/14) TRANSFUSE NONAUT RED BLOOD CELLS IN PERIPH VEIN, PERC (02/19/17) ULTRASONOGRAPHY OF RIGHT AND LEFT HEART, TRANSESOPHAGEAL (02/19/17) ULTRASONOGRAPHY OF RIGHT SUBCLAVIAN VEIN, GUIDANCE (08/29/16) ULTRASONOGRAPHY OF RIGHT UPPER EXTREMITY VEINS, GUIDANCE (02/19/17) VACCINATION NEC (10/26/14) VENOUS CATHETERIZATION FOR RENAL DIALYSIS (03/03/14) Review of Systems - Review of Systems All systems: reviewed and no additional remarkable complaints except - Constitutional Constitutional: As Per HPI, Anorexia, Chills, Fever - EENT Eyes: absent: As Per HPI, Blind Spots, Blurred Vision, Change in Vision, Decreased Night Vision, Diplopia, Discharge, Dry Eye, Exophthalmos, Floaters, Irritation, Itchy Eyes, Loss of Peripheral Vision, Pain, Photophobia, Requires Corrective Lenses, Sees Flashes, Spots in Vision, Tunnel Vision, Other Visual Disturbances, Loss of Vision, Other Ears: absent: As Per HPI, Decreased Hearing, Ear Discharge, Ear Pain, Tinnitus, Abnormal Hearing, Disequilibrium, Dizziness, Other Nose/Mouth/Throat: absent: As Per HPI, Epistaxis, Nasal Congestion, Nasal Discharge, Nasal Obstruction, Nasal Trauma, Nose Pain, Post Nasal Drip, Sinus Pain, Sinus Pressure, Bleeding Gums, Change in Voice, Dental Pain, Dry Mouth, Dysphagia, Halitosis, Hoarsness, Lip Swelling, Mouth Lesions, Mouth Pain, Odynophagia, Sore Throat, Throat Swelling, Tongue Swelling, Facial Pain, Neck Pain, Neck Mass, Other - Breasts Breasts: absent: As Per HPI, Change in Shape, Mass, Pain, Nipple Discharge, Nipple Inversion, Skin Changes, Swelling, Other - Cardiovascular Cardiovascular: absent: As Per HPI, Acrocyanosis, Chest Pain, Chest Pain at Rest, Chest Pain with Activity, Claudication, Diaphoresis, Dyspnea, Dyspnea on Exertion, Edema, Irregular Heart Rhythm, Pain Radiating to Arm/Neck/Jaw, Leg Edema, Leg Ulcers, Lightheadedness, Orthopnea, Palpitations, Paroxysmal Nocturnal Dyspnea, Pedal Edema, Radiating Pain, Rapid Heart Rate, Slow Heart Rate, Syncope, Other - Respiratory Respiratory: absent: As Per HPI, Cough, Dyspnea, Hemoptysis, Dyspnea on Exertion, Wheezing, Snoring, Stridor, Pain on Inspiration, Chest Congestion, Excessive Mucous Production, Change in Mucous Color, Pain with Coughing, Other - Gastrointestinal Gastrointestinal: absent: As Per HPI, Abdominal Pain, Belching, Bloating, Change in Bowel Habits, Change in Stool Character, Coffee Ground Emesis, Constipation, Cramping, Diarrhea, Dyspepsia, Dysphagia, Early Satiety, Excessive Flatus, Fecal Incontinence, Heartburn, Hematemesis, Hematochezia, Loose Stools, Melena, Nausea, Odynophagia, Temesmus, Vomiting, Other - Genitourinary Genitourinary: absent: As Per HPI, Change in Urinary Stream, Difficulty Urinati ng, Dysuria, Flank Pain, Hematuria, Pyuria, Nocturia, Urinary Incontinence, Urinary Frequency, Urinary Hesitance, Urinary Urgency, Voiding Freq/Small Amts, Freq UTI, Hx Renal/Bladder Calculi, Hx /Renal Surgery, Bladder Distension, Other - Reproductive: Female Reproductive:Female: absent: As Per HPI, Amenorrhea, Amenorrhea/ Control, Currently Menstual, Cycle <21 Days, Cycle >35 Days, Cycle Variable, Menses 1-7 Days, Menses >/= 8 Days, Menses Variable, Cycle > 4 Weeks Between, No Menses for 6 Months, Heavy Menses, Light Menses, Normal Menses, Spotting Between Cycles, S/P Hysterectomy, Menopausal, Post Menopausal, Premenarche, Abnormal Vaginal Bleeding, Dysmenorrhea, Dyspareunia, Genital Lesions, Genital Pruritis, Pelvic Pain, Prolapse Symptoms, Sexual Dysfunction, Vaginal Discharge, Vaginal Dryness, Vaginal Odor, Vaginal Pruritis, Other - Menstruation Menstruation: absent: As Per HPI, Amenorrhea, Amenorrhea/ Control, Currently Menstual, Cycle <21 Days, Cycle >35 Days, Cycle Variable, Menses 1-7 Days, Menses >/= 8 Days, Menses Variable, Cycle > 4 Weeks Between, No Menses for 6 Months, Heavy Menses, Light Menses, Normal Menses, Spotting Between Cycles, S/P Hysterectomy, Menopausal, Post Menopausal, Premenarche, Abnormal Vaginal Bleeding, Dysmenorrhea, Other - Musculoskeletal Musculoskeletal: absent: As Per HPI, Abnormal Gait, Arthralgias, Atrophy, Back Pain, Deformity, Joint Swelling, Limited Range of Motion, Loss of Height, Muscle Cramps, Muscle Weakness, Myalgias, Neck Pain, Numbness, Radiating Pain into Limb, Stiffness, Tingling, Other - Integumentary Integumentary: As Per HPI - Neurological Neurological: absent: As Per HPI, Abnormal Gait, Abnormal Hearing, Abnormal Movements, Abnormal Speech, Behavioral Changes, Burning Sensations, Confusion, Convulsions, Disequilibrium, Dizziness, Numbness, Focal Weakness, Frequent Falls, Headaches, Lack of Coordination, Loss of Vision, Memory Loss, Paresthesias, Radicular Pain, Restless Legs, Sensory Deficit, Syncope, Tingling, Tremor, Vertigo, Weakness, Other Visual Disturbances, Other - Psychiatric Psychiatric: absent: As Per HPI, Abnormal Sleep Pattern, Anhedonia, Anxiety, Auditory Hallucinations, Behavioral Changes, Change in Appetite, Change in Libido, Confusion, Depression, Difficulty Concentrating, Hallucinations, Homicidal Ideation, Hopelessness, Irritability, Memory Loss, Mood Swings, Panic Attacks, Paranoia, Suicidal Ideation, Visual Hallucinations, Tactile Hallucin ations, Other - Endocrine Endocrine: As Per HPI, Change in Body Appearance, Change in Libido, Cold Intolorance, Deepening of Voice, Excessive Sweating, Fatigue, Flushing, Heat Intolorance, Increase in Ring/Shoe/Hat Size, Palpitations, Polydipsia, Polyphagia, Polyuria, Other - Hematologic/Lymphatic Hematologic: absent: As Per HPI, Easy Bleeding, Easy Bruising, Lymphadenopathy, Other Past Patient History - Infectious Disease Hx of Infectious Diseases: None - Tetanus Immunizations Tetanus Immunization: Unknown - Past Medical History & Family History Past Medical History?: Yes - Past Social History Smoking Status: Never Smoked - CARDIAC Hx Cardiac Disorders: Yes Hx Congestive Heart Failure: Yes Hx Hypercholesterolemia: Yes Hx Hypertension: Yes Hx Peripheral Edema: Yes - PULMONARY Hx Respiratory Disorders: Yes Hx Asthma: Yes Hx Bronchitis: Yes Hx Pneumonia: Yes Hx Sleep Apnea: Yes - NEUROLOGICAL Hx Neurological Disorder: Yes Hx Seizures: Yes - HEENT Hx HEENT Problems: Yes Hx Cataracts: Yes (BOTH EYES) Hx Glaucoma: Yes (BOTH EYES) - RENAL Hx Chronic Kidney Disease: Yes Hx Kidney Stones: Yes - ENDOCRINE/METABOLIC Hx Endocrine Disorders: Yes Hx Hyperthyroidism: Yes Hx Hypothyroidism: Yes - HEMATOLOGICAL/ONCOLOGICAL Hx Blood Disorders: Yes Hx Anemia: Yes - INTEGUMENTARY Hx Dermatological Problems: Yes Other/Comment: DRY ITCHY SKIN ;multiple/generalized dark spots on skin. left toe blister - MUSCULOSKELETAL/RHEUMATOLOGICAL Hx Musculoskeletal Disorders: Yes Hx Falls: No Hx Fractures: Yes (LEFT FOOT) - GASTROINTESTINAL Hx Gastrointestinal Disorders: Yes Hx Gall Bladder Disease: Yes Hx Gastritis: Yes Hx Pancreatitis: Yes - GENITOURINARY/GYNECOLOGICAL Hx Genitourinary Disorders: No - PSYCHIATRIC Hx Psychophysiologic Disorder: Yes Hx Anxiety: Yes Hx Substance Use: No - SURGICAL HISTORY Hx Surgeries: Yes Hx Cholecystectomy: Yes Hx Coronary Stent: Yes - ANESTHESIA Hx Anesthesia: Yes Hx Anesthesia Reactions: No Hx Malignant Hyperthermia: No Meds Allergies/Adverse Reactions: Allergies Allergy/AdvReac Type Severity Reaction Status Date / Time ketorolac tromethamine Allergy RASH Verified 07/17/18 21:15 [From Toradol] latex Allergy RASH Verified 07/17/18 21:15 morphine Allergy RASH Verified 07/17/18 21:15 tramadol Allergy RASH Verified 07/17/18 21:15 - Medications Medications: Current Medications Acetaminophen (Tylenol 325mg Tab) 650 mg PO Q6 PRN PRN Reason: Fever >100.4 F Last Admin: 08/18/18 09:06 Dose: 650 mg Calcium Acetate (Phoslo) 667 mg PO TID [facility] Last Admin: 08/18/18 13:21 Dose: Not Given Clonidine HCl (Catapres) 0.3 mg PO BID [facility] Last Admin: 08/18/18 09:06 Dose: 0.3 mg Diphenhydramine HCl (Benadryl) 25 mg PO Q3H PRN PRN Reason: Allergy symptoms Docusate Sodium (Colace) 100 mg PO TID [facility] Last Admin: 08/18/18 13:21 Dose: Not Given Gabapentin (Neurontin) 300 mg PO BID [facility] Last Admin: 08/18/18 09:06 Dose: 300 mg Heparin Sodium (Porcine) (Heparin) 5,000 units SC Q12 [facility] Last Admin: 08/18/18 09:13 Dose: Not Given Hydromorphone HCl (Dilaudid) 2 mg IVP Q3 PRN PRN Reason: Pain, moderate (4-7) Last Admin: 08/18/18 14:52 Dose: 2 mg Piperacillin Sod/Tazobactam (Sod 3.375 gm/ Sodium Chloride) 100 mls @ 200 mls/hr IVPB Q8H [facility]; Protocol Last Admin: 08/18/18 14:51 Dose: 200 mls/hr Insulin Glargine (Lantus) 25 unit SC HS [facility] Last Admin: 08/17/18 22:06 Dose: 25 units Oseltamivir Phosphate (Tamiflu Cap) 75 mg PO BID [facility]; Protocol Stop: 08/21/18 21:54 Last Admin: 08/18/18 09:06 Dose: 75 mg Pantoprazole Sodium (Protonix Ec Tab) 40 mg PO DAILY [facility] Last Admin: 08/18/18 09:06 Dose: 40 mg Sucralfate (Carafate Oral Susp) 1 gm PO QID [facility] Last Admin: 08/18/18 13:21 Dose: Not Given Physical Exam - Constitutional Appears: Non-toxic, Chronically Ill - Head Exam Head Exam: NORMOCEPHALIC - Eye Exam Eye Exam: absent: Scleral icterus Pupil Exam: NORMAL ACCOMODATION - ENT Exam ENT Exam: Mucous Membranes Dry, Normal External Ear Exam, Normal Oropharynx, TM's Normal Bilaterally - Neck Exam Neck exam: Negative for: Lymphadenopathy (O), Thyromegaly - Respiratory Exam Respiratory Exam: Decreased Breath Sounds, Clear to Auscultation Bilateral - Cardiovascular Exam Cardiovascular Exam: REGULAR RHYTHM, +S1, +S2 - GI/Abdominal Exam GI & Abdominal Exam: Diminished Bowel Sounds, Distended, Soft. absent: Tenderness - Rectal Exam Rectal Exam: Deferred - Exam Exam: NORMAL INSPECTION - Extremities Exam Extremities exam: Positive for: full ROM, pedal pulses present. Negative for: pedal edema - Back Exam Back exam: absent: CVA tenderness (L), CVA tenderness (R), paraspinal tenderness - Neurological Exam Neurological exam: Alert, CN II-XII Intact, Oriented x3, Reflexes Normal - Psychiatric Exam Psychiatric exam: Depressed, Normal Mood - Skin Skin Exam: Dry, Intact Results - Vital Signs Recent Vital Signs: Last Vital Signs Temp 99.3 F 08/18/18 14:00 Pulse 102 H 08/18/18 08:17 Resp 20 08/18/18 08:17 BP 124/75 08/18/18 08:17 Pulse Ox 99 08/18/18 08:17 - Labs Result Diagrams: 08/16/18 16:36 08/16/18 16:36 Labs: Laboratory Results - last 24 hr 08/17/18 08/17/18 08/18/18 17:32 21:36 06:45 POC Glucose (mg/dL) 153 H 235 H 82 08/18/18 08/18/18 11:42 16:19 POC Glucose (mg/dL) 107 171 H Assessment & Plan (1) Influenza Status: Acute (2) Multifocal pneumonia Status: Acute - Assessment and Plan (Free Text) Assessment: PNEUMONIA POSSIBLY VIRAL VS BACTERIAL IV ANTIBIOTICS IN PROGRESS CONT TAMIFLU
[2018-08-19] MEDS ORDERED: Dextrose 50% SYRINGE Inj (50 ml) IV PRN (02:05)
[2018-08-19] MEDS ORDERED: Glucagon Recombinant 1 mg Inj IM PRN (02:05)
[2018-08-19] MEDS ORDERED: (Novolin R) Insulin Human Regular 100 units/ml vial SC STA (02:14)
[2018-08-19] MEDS: Piperacillin/Tazobact 3.375 GM in Sodium Chloride 100 ML IVPB SCH ×2 (06:34→16:03)
--- NOTE | 2018-08-19 09:00 | CON ---
DATE: 08/17/2018 REQUESTED BY: Florence Sexton MD HISTORY OF PRESENT ILLNESS: This is a 32-year-old female who has been seen here in consultation for chronic renal failure, end-stage renal disease and dialysis dependence. She is on dialysis on Sunday, and Sunday. presents with flu syndrome, viral A finding along with shaking chills, temperature of 102. BUN 21, creatinine 3.5, phosphorus 3.2. History is obtained from review of the present chart and interviewing the patient who is not a good historian and reviewing multiple previous charts both from here and from other hospital stays where she has been seen in renal consultation in the past. She is a patient of Dr. Jesus Phillips to whom I am covering today. problem with gastroparesis and significant allergic type reaction for which she takes a good amount of Benadryl at the time of dialysis. She has been on dialysis now for about 4-1/2 years. She has a longstanding history of chronic renal failure. She has underlying diabetes along with hypertension. She has some gastroparesis and pain with persistent nausea and vomiting. . She has no prior history of nephritis, nephrosis, Bright's disease, , rheumatic heart disease. She denies chronic urinary tract infection, bladder infection, cystitis, or pyelonephritis. No frequency, urgency, or hesitancy. No hematuria or proteinuria during previous hospital stays by psychiatry, Dr. with a possible adjustment disorder with anxiety and depressed mood, and medications. Several hospital stays both here at [facility] and [facility] have been reviewed. SOCIAL HISTORY: Nonsmoker. Nondrinker. No IV drug user. FAMILY HISTORY: No family history of kidney disease. ALLERGIES: DENIED. REVIEW OF SYSTEMS: A 12-point review of system is negative except as outlined above. PHYSICAL EXAMINATION: GENERAL: She is a well-developed, well-nourished pleasant female, in no acute distress. HEENT: Head is normocephalic and atraumatic. Eyes PERRLA. EOMs full. Unable to visualize fundi. NECK: Supple. Neck veins are flat. No bruits. Thyroid not enlarged. Thorax symmetric. LUNGS: Clear to percussion and auscultation. CARDIAC: PMI in the fifth left intercostal space at the midclavicular line. 1/6 soft systolic ejection murmur. No S3. No rub. ABDOMEN: Soft and nontender. No gross organomegaly. No mass. EXTREMITIES: No significant edema. Pulses equal and intact. NEUROLOGIC: Oriented to time, person, and place. coordination within normal limits. IMPRESSION: Chronic renal failure, end-stage renal disease, and dialysis dependence. PLAN: We will continue treatments while here. Dr. Phillips will follow. Thank you for allowing me to participate in the patient's care. Asher Pittman MD
[2018-08-19] MEDS: (Novolog) Insulin Aspart, Recombinant 100 u/ml 10 ml vial SC SCH ×4 (09:18→21:55)
[2018-08-19] MEDS: Sucralfate 1 gm/10 ml Oral Susp UD PO SCH ×4 (10:56→22:34)
[2018-08-19] MEDS: Pantoprazole 40 mg EC Tab PO SCH (10:57)
[2018-08-19 11:14] LABS: BASO # 0.1 K/uL (0.0-0.2); BASO % 1.2 % (0.0-2.0); EOS # 0.8 K/uL (0.0-0.7); EOS % 14.4 % (0.0-4.0); HEMOGLOBIN 9.1 g/dL (11.0-16.0); LYMPH # 1.2 K/uL (1.0-4.3); LYMPH % 22.7 % (20.0-40.0); MEAN CELL VOLUME 98.5 fL (81.0-99.0); MEAN CORPUSCULAR HEMOGLOBIN 32.5 pg (27.0-31.0); MEAN PLATELET VOLUME 9.4 fL (7.2-11.7); MONO # 0.6 K/uL (0.0-0.8); MONO % 11.1 % (0.0-10.0); NEUT # 2.7 K/uL (1.8-7.0); NEUT % 50.6 % (50.0-75.0); RBC 2.79 Mil/uL (3.80-5.20); WHITE BLOOD COUNT 5.4 K/uL (4.8-10.8)
[2018-08-19 12:22] LABS: ALB/GLOB RATIO 1.3 (1.0-2.1); ALBUMIN 4.1 g/dL (3.5-5.0); CALCIUM 6.7 mg/dl (8.6-10.4)
--- NOTE | 2018-08-19 12:48 | CP.PCM.PN ---
Subjective - Date & Time of Evaluation Date of Evaluation: 08/19/18 Time of Evaluation: 08:00 - Subjective Subjective: + multifocal pneumonia iv rx in prgress Objective - Vital Signs/Intake and Output Vital Signs (last 24 hours): Temp Pulse Resp BP Pulse Ox 87 F L 77 18 196/102 H 99 08/19/18 10:10 08/19/18 11:45 08/19/18 12:15 08/19/18 12:15 08/19/18 10:15 - Medications Medications: Current Medications Acetaminophen (Tylenol 325mg Tab) 650 mg PO Q6 PRN PRN Reason: Fever >100.4 F Last Admin: 08/19/18 09:16 Dose: 650 mg Calcium Acetate (Phoslo) 667 mg PO TID [facility] Last Admin: 08/19/18 10:57 Dose: Not Given Clonidine HCl (Catapres) 0.3 mg PO BID [facility] Last Admin: 08/19/18 10:56 Dose: Not Given Dextrose (Dextrose 50% Inj) 0 ml IV STAT PRN; Protocol PRN Reason: Hypoglycemia Protocol Dextrose (Glutose 15) 0 gm PO ONCE PRN; Protocol PRN Reason: Hypoglycemia Protocol Diphenhydramine HCl (Benadryl) 25 mg PO Q3H PRN PRN Reason: Allergy symptoms Last Admin: 08/19/18 10:36 Dose: 25 mg Docusate Sodium (Colace) 100 mg PO TID [facility] Last Admin: 08/19/18 10:56 Dose: Not Given Gabapentin (Neurontin) 300 mg PO BID [facility] Last Admin: 08/19/18 10:56 Dose: Not Given Glucagon (Glucagen Diagnostic Kit) 0 mg IM STAT PRN; Protocol PRN Reason: Hypoglycemia Protocol Heparin Sodium (Porcine) (Heparin) 5,000 units SC Q12 [facility] Last Admin: 08/19/18 10:56 Dose: Not Given Hydromorphone HCl (Dilaudid) 2 mg IVP Q3 PRN PRN Reason: Pain, moderate (4-7) Last Admin: 08/19/18 07:58 Dose: 2 mg Piperacillin Sod/Tazobactam (Sod 3.375 gm/ Sodium Chloride) 100 mls @ 200 mls/hr IVPB Q8H [facility]; Protocol Last Admin: 08/19/18 06:34 Dose: 200 mls/hr Vancomycin/Sodium Chloride (Vancomycin 1 Gm/Ns 200 Ml) 1 gm in 200 mls @ 133.333 mls/hr IVPB MWF [facility]; Protocol Stop: 08/24/18 09:01 Dextrose (Dextrose 5% In Water 1000 Ml) 1,000 mls @ 0 mls/hr IV .Q0M PRN; Protocol PRN Reason: Hypoglycemia Protocol Insulin Aspart (Novolog) 0 unit SC ACHS [facility]; Protocol Last Admin: 08/19/18 11:59 Dose: Not Given Insulin Glargine (Lantus) 25 unit SC HS [facility] Last Admin: 08/18/18 21:57 Dose: 25 units Oseltamivir Phosphate (Tamiflu Cap) 75 mg PO BID [facility]; Protocol Stop: 08/21/18 21:54 Last Admin: 08/19/18 10:57 Dose: Not Given Pantoprazole Sodium (Protonix Ec Tab) 40 mg PO DAILY [facility] Last Admin: 08/19/18 10:57 Dose: Not Given Sucralfate (Carafate Oral Susp) 1 gm PO QID [facility] Last Admin: 08/19/18 10:56 Dose: Not Given - Labs Labs: 08/19/18 11:00 08/19/18 11:00 PT 14.6 SECONDS (9.7-12.2) H 08/16/18 16:36 INR 1.3 08/16/18 16:36 APTT > 400 SECONDS (21-34) H* 08/16/18 16:36 - Constitutional Appears: Chronically Ill - Head Exam Head Exam: NORMOCEPHALIC - Eye Exam Eye Exam: PERRL - ENT Exam ENT Exam: Mucous Membranes Dry - Neck Exam Neck Exam: absent: Lymphadenopathy - Respiratory Exam Respiratory Exam: Decreased Breath Sounds, Rales - Cardiovascular Exam Cardiovascular Exam: REGULAR RHYTHM, +S1, +S2 - GI/Abdominal Exam GI & Abdominal Exam: Distended, Soft - Rectal Exam Rectal Exam: Deferred - Extremities Exam Extremities Exam: Pedal Edema - Back Exam Back Exam: absent: CVA tenderness (L), CVA tenderness (R) - Neurological Exam Neurological Exam: Alert, Awake, Oriented x3 - Psychiatric Exam Psychiatric exam: Normal Mood - Skin Skin Exam: Dry Assessment and Plan (1) Influenza Status: Acute (2) Multifocal pneumonia Status: Acute - Assessment and Plan (Free Text) Assessment: cont rx pneumonia await cutures/ serologies
--- NOTE | 2018-08-19 13:03 | CARD ---
APPROVED REPORT Date of service: 08/16/2018 EKG Measurement Heart [id number] <Conclusion> Sinus tachycardia Left ventricular hypertrophy with repolarization abnormality Abnormal ECG
[2018-08-19] MEDS: Vancomycin 1 gm/NS 200 ml 1 GM/200 ML BAG IVPB SCH (17:28)
--- NOTE | 2018-08-19 18:07 | CP.PCM.PN ---
Subjective - Date & Time of Evaluation Date of Evaluation: 08/19/18 Time of Evaluation: 09:15 - Subjective Subjective: clinically same Objective - Vital Signs/Intake and Output Vital Signs (last 24 hours): Temp Pulse Resp BP Pulse Ox 97.2 F L 94 H 20 156/92 H 100 08/19/18 16:54 08/19/18 16:54 08/19/18 16:54 08/19/18 16:54 08/19/18 16:54 Intake and Output: 08/19/18 08/19/18 06:59 18:59 Intake Total 800 Balance 800 - Medications Medications: Current Medications Acetaminophen (Tylenol 325mg Tab) 650 mg PO Q6 PRN PRN Reason: Fever >100.4 F Last Admin: 08/19/18 09:16 Dose: 650 mg Calcium Acetate (Phoslo) 667 mg PO TID [facility] Last Admin: 08/19/18 17:29 Dose: 667 mg Clonidine HCl (Catapres) 0.3 mg PO BID [facility] Last Admin: 08/19/18 17:30 Dose: 0.3 mg Dextrose (Dextrose 50% Inj) 0 ml IV STAT PRN; Protocol PRN Reason: Hypoglycemia Protocol Dextrose (Glutose 15) 0 gm PO ONCE PRN; Protocol PRN Reason: Hypoglycemia Protocol Diphenhydramine HCl (Benadryl) 25 mg PO Q3H PRN PRN Reason: Allergy symptoms Last Admin: 08/19/18 13:15 Dose: 25 mg Docusate Sodium (Colace) 100 mg PO TID [facility] Last Admin: 08/19/18 17:29 Dose: 100 mg Gabapentin (Neurontin) 300 mg PO BID [facility] Last Admin: 08/19/18 17:29 Dose: 300 mg Glucagon (Glucagen Diagnostic Kit) 0 mg IM STAT PRN; Protocol PRN Reason: Hypoglycemia Protocol Heparin Sodium (Porcine) (Heparin) 5,000 units SC Q12 [facility] Last Admin: 08/19/18 10:56 Dose: Not Given Hydromorphone HCl (Dilaudid) 2 mg IVP Q3 PRN PRN Reason: Pain, moderate (4-7) Last Admin: 08/19/18 16:26 Dose: 2 mg Vancomycin/Sodium Chloride (Vancomycin 1 Gm/Ns 200 Ml) 1 gm in 200 mls @ 133.333 mls[facility]; Protocol Stop: 08/24/18 09:01 Last Admin: 08/19/18 17:28 Dose: 133.333 mls/hr Dextrose (Dextrose 5% In Water 1000 Ml) 1,000 mls @ 0 mls/hr IV .Q0M PRN; Protocol PRN Reason: Hypoglycemia Protocol Piperacillin Sod/Tazobactam (Sod 2.25 gm/ Sodium Chloride) 100 mls @ 200 mls/hr IVPB Q8H [facility]; Protocol Insulin Aspart (Novolog) 0 unit SC ACHS [facility]; Protocol Last Admin: 08/19/18 17:28 Dose: 3 units Insulin Glargine (Lantus) 25 unit SC HS [facility] Last Admin: 08/18/18 21:57 Dose: 25 units Oseltamivir Phosphate (Tamiflu Susp) 30 mg PO MWF [facility]; Protocol Stop: 08/26/18 09:01 Pantoprazole Sodium (Protonix Ec Tab) 40 mg PO DAILY [facility] Last Admin: 08/19/18 10:57 Dose: Not Given Sucralfate (Carafate Oral Susp) 1 gm PO QID [facility] Last Admin: 08/19/18 17:30 Dose: 1 gm - Labs Labs: 08/19/18 11:00 08/19/18 11:00 PT 14.6 SECONDS (9.7-12.2) H 08/16/18 16:36 INR 1.3 08/16/18 16:36 APTT > 400 SECONDS (21-34) H* 08/16/18 16:36
--- NOTE | 2018-08-19 19:44 | CP.PCM.PN ---
Subjective - Date & Time of Evaluation Date of Evaluation: 08/19/18 Time of Evaluation: 15:00 - Subjective Subjective: SEEN ON RENAL F/U IN [place] 2/2 FLU ON IVAB FOR PNEUMONIA RECIVED HER HD EARLIAR TODAY Objective - Vital Signs/Intake and Output Vital Signs (last 24 hours): Temp Pulse Resp BP Pulse Ox 97.2 F L 94 H 20 156/92 H 100 08/19/18 16:54 08/19/18 16:54 08/19/18 16:54 08/19/18 16:54 08/19/18 16:54 Intake and Output: 08/19/18 08/20/18 18:59 06:59 Intake Total 800 Balance 800 - Medications Medications: Current Medications Acetaminophen (Tylenol 325mg Tab) 650 mg PO Q6 PRN PRN Reason: Fever >100.4 F Last Admin: 08/19/18 09:16 Dose: 650 mg Calcium Acetate (Phoslo) 667 mg PO TID [facility] Last Admin: 08/19/18 17:29 Dose: 667 mg Clonidine HCl (Catapres) 0.3 mg PO BID [facility] Last Admin: 08/19/18 17:30 Dose: 0.3 mg Dextrose (Dextrose 50% Inj) 0 ml IV STAT PRN; Protocol PRN Reason: Hypoglycemia Protocol Dextrose (Glutose 15) 0 gm PO ONCE PRN; Protocol PRN Reason: Hypoglycemia Protocol Diphenhydramine HCl (Benadryl) 25 mg PO Q3H PRN PRN Reason: Allergy symptoms Last Admin: 08/19/18 13:15 Dose: 25 mg Docusate Sodium (Colace) 100 mg PO TID [facility] Last Admin: 08/19/18 17:29 Dose: 100 mg Gabapentin (Neurontin) 300 mg PO BID [facility] Last Admin: 08/19/18 17:29 Dose: 300 mg Glucagon (Glucagen Diagnostic Kit) 0 mg IM STAT PRN; Protocol PRN Reason: Hypoglycemia Protocol Heparin Sodium (Porcine) (Heparin) 5,000 units SC Q12 [facility] Last Admin: 08/19/18 10:56 Dose: Not Given Hydromorphone HCl (Dilaudid) 2 mg IVP Q3 PRN PRN Reason: Pain, moderate (4-7) Last Admin: 08/19/18 16:26 Dose: 2 mg Vancomycin/Sodium Chloride (Vancomycin 1 Gm/Ns 200 Ml) 1 gm in 200 mls @ 133.333 mls/hr IVPB [facility] [place] [facility]; Protocol Stop: 08/24/18 09:01 Last Admin: 08/19/18 17:28 Dose: 133.333 mls/hr Dextrose (Dextrose 5% In Water 1000 Ml) 1,000 mls @ 0 mls/hr IV .Q0M PRN; Protocol PRN Reason: Hypoglycemia Protocol Piperacillin Sod/Tazobactam (Sod 2.25 gm/ Sodium Chloride) 100 mls @ 200 mls/hr IVPB Q8H [facility]; Protocol Insulin Aspart (Novolog) 0 unit SC [facility]; Protocol Last Admin: 08/19/18 17:28 Dose: 3 units Insulin Glargine (Lantus) 25 unit SC [facility] Last Admin: 08/18/18 21:57 Dose: 25 units Oseltamivir Phosphate (Tamiflu Susp) 30 mg PO [facility] [place] [facility]; Protocol Stop: 08/26/18 09:01 Pantoprazole Sodium (Protonix Ec Tab) 40 mg PO DAILY [facility] Last Admin: 08/19/18 10:57 Dose: Not Given Sucralfate (Carafate Oral Susp) 1 gm PO QID [facility] Last Admin: 08/19/18 17:30 Dose: 1 gm - Labs Labs: 08/19/18 11:00 08/19/18 11:00 PT 14.6 SECONDS (9.7-12.2) H 08/16/18 16:36 INR 1.3 08/16/18 16:36 APTT > 400 SECONDS (21-34) H* 08/16/18 16:36
[2018-08-19] MEDS: (Lantus) Insulin Glargine, Recombinant SC SCH (22:37)
[2018-08-20] MEDS ORDERED: Piperacillin/Tazobact 2.25 GM in Sodium Chloride 100 ML IVPB SCH
[2018-08-20] MEDS: (Novolog) Insulin Aspart, Recombinant 100 u/ml 10 ml vial SC SCH ×4 (08:49→22:23)
[2018-08-20] MEDS: Sucralfate 1 gm/10 ml Oral Susp UD PO SCH ×4 (09:56→22:25)
[2018-08-20] MEDS: Pantoprazole 40 mg EC Tab PO SCH (09:56)
--- NOTE | 2018-08-20 12:03 | CP.PCM.PN ---
Subjective - Date & Time of Evaluation Date of Evaluation: 08/20/18 Time of Evaluation: 09:00 - Subjective Subjective: IV RX RENEWED Objective - Vital Signs/Intake and Output Vital Signs (last 24 hours): Temp Pulse Resp BP Pulse Ox 98.6 F 91 H 20 125/73 100 08/20/18 08:00 08/20/18 08:00 08/20/18 08:00 08/20/18 08:00 08/20/18 08:00 - Medications Medications: Current Medications Acetaminophen (Tylenol 325mg Tab) 650 mg PO Q6 PRN PRN Reason: Fever >100.4 F Last Admin: 08/20/18 01:01 Dose: 650 mg Calcium Acetate (Phoslo) 667 mg PO TID [facility] Last Admin: 08/20/18 09:56 Dose: 667 mg Clonidine HCl (Catapres) 0.3 mg PO BID [facility] Last Admin: 08/20/18 09:56 Dose: 0.3 mg Dextrose (Dextrose 50% Inj) 0 ml IV STAT PRN; Protocol PRN Reason: Hypoglycemia Protocol Dextrose (Glutose 15) 0 gm PO ONCE PRN; Protocol PRN Reason: Hypoglycemia Protocol Diphenhydramine HCl (Benadryl) 25 mg PO Q4H PRN PRN Reason: Allergy symptoms Docusate Sodium (Colace) 100 mg PO TID [facility] Last Admin: 08/20/18 09:57 Dose: Not Given Gabapentin (Neurontin) 300 mg PO BID [facility] Last Admin: 08/20/18 09:56 Dose: 300 mg Glucagon (Glucagen Diagnostic Kit) 0 mg IM STAT PRN; Protocol PRN Reason: Hypoglycemia Protocol Heparin Sodium (Porcine) (Heparin) 5,000 units SC Q12 [facility] Last Admin: 08/20/18 09:56 Dose: Not Given Hydromorphone HCl (Dilaudid) 2 mg IVP Q4H PRN PRN Reason: Pain, moderate (4-7) Vancomycin/Sodium Chloride (Vancomycin 1 Gm/Ns 200 Ml) 1 gm in 200 mls @ 133.333 mls/hr IVPB MWF [facility]; Protocol Stop: 08/24/18 09:01 Last Admin: 08/19/18 17:28 Dose: 133.333 mls/hr Dextrose (Dextrose 5% In Water 1000 Ml) 1,000 mls @ 0 mls/hr IV .Q0M PRN; Protocol PRN Reason: Hypoglycemia Protocol Insulin Aspart (Novolog) 0 unit SC ACHS [facility]; Protocol Last Admin: 08/20/18 12:02 Dose: Not Given Insulin Glargine (Lantus) 25 unit SC HS [facility] Last Admin: 08/19/18 22:37 Dose: 25 units Oseltamivir Phosphate (Tamiflu Susp) 30 mg PO MWF [facility]; Protocol Stop: 08/26/18 09:01 Pantoprazole Sodium (Protonix Ec Tab) 40 mg PO DAILY [facility] Last Admin: 08/20/18 09:56 Dose: 40 mg Sucralfate (Carafate Oral Susp) 1 gm PO QID [facility] Last Admin: 08/20/18 09:56 Dose: 1 gm - Labs Labs: 08/19/18 11:00 08/19/18 11:00 PT 14.6 SECONDS (9.7-12.2) H 08/16/18 16:36 INR 1.3 08/16/18 16:36 APTT > 400 SECONDS (21-34) H* 08/16/18 16:36 - Constitutional Appears: Non-toxic - Head Exam Head Exam: NORMOCEPHALIC - Eye Exam Eye Exam: absent: Scleral icterus - ENT Exam ENT Exam: Mucous Membranes Dry - Neck Exam Neck Exam: absent: Lymphadenopathy - Respiratory Exam Respiratory Exam: Decreased Breath Sounds - Cardiovascular Exam Cardiovascular Exam: REGULAR RHYTHM - GI/Abdominal Exam GI & Abdominal Exam: Distended, Soft - Rectal Exam Rectal Exam: Deferred - Exam Exam: NORMAL INSPECTION - Extremities Exam Extremities Exam: absent: Pedal Edema - Back Exam Back Exam: absent: CVA tenderness (L), CVA tenderness (R) Assessment and Plan (1) Influenza Status: Acute (2) Multifocal pneumonia Status: Acute - Assessment and Plan (Free Text) Assessment: CONT RX FLU/PNEUMONIA
[2018-08-20] MEDS: Cefepime IV 1 gm in Dextrose 1 GM/50 ML BAG IVPB SCH (13:34)
--- NOTE | 2018-08-20 17:16 | CP.PCM.PN ---
Subjective - Date & Time of Evaluation Date of Evaluation: 08/20/18 Time of Evaluation: 17:16 Objective - Vital Signs/Intake and Output Vital Signs (last 24 hours): Temp Pulse Resp BP Pulse Ox 97.8 F 75 20 140/85 99 08/20/18 16:24 08/20/18 16:24 08/20/18 16:24 08/20/18 16:24 08/20/18 16:24 - Medications Medications: Current Medications Acetaminophen (Tylenol 325mg Tab) 650 mg PO Q6 PRN PRN Reason: Fever >100.4 F Last Admin: 08/20/18 01:01 Dose: 650 mg Calcium Acetate (Phoslo) 667 mg PO TID [facility] Last Admin: 08/20/18 13:34 Dose: 667 mg Clonidine HCl (Catapres) 0.3 mg PO BID [facility] Last Admin: 08/20/18 09:56 Dose: 0.3 mg Dextrose (Dextrose 50% Inj) 0 ml IV STAT PRN; Protocol PRN Reason: Hypoglycemia Protocol Dextrose (Glutose 15) 0 gm PO ONCE PRN; Protocol PRN Reason: Hypoglycemia Protocol Diphenhydramine HCl (Benadryl) 25 mg PO Q4H PRN PRN Reason: Allergy symptoms Last Admin: 08/20/18 14:44 Dose: 25 mg Docusate Sodium (Colace) 100 mg PO TID [facility] Last Admin: 08/20/18 14:27 Dose: Not Given Gabapentin (Neurontin) 300 mg PO BID [facility] Last Admin: 08/20/18 09:56 Dose: 300 mg Glucagon (Glucagen Diagnostic Kit) 0 mg IM STAT PRN; Protocol PRN Reason: Hypoglycemia Protocol Heparin Sodium (Porcine) (Heparin) 5,000 units SC Q12 [facility] Last Admin: 08/20/18 09:56 Dose: Not Given Hydromorphone HCl (Dilaudid) 2 mg IVP Q4H PRN PRN Reason: Pain, moderate (4-7) Last Admin: 08/20/18 14:44 Dose: 2 mg Vancomycin/Sodium Chloride (Vancomycin 1 Gm/Ns 200 Ml) 1 gm in 200 mls @ 133.333 mls/hr IVPB MWF [facility]; Protocol Stop: 08/24/18 09:01 Last Admin: 08/19/18 17:28 Dose: 133.333 mls/hr Dextrose (Dextrose 5% In Water 1000 Ml) 1,000 mls @ 0 mls/hr IV .Q0M PRN; Protocol PRN Reason: Hypoglycemia Protocol Cefepime HCl (Maxipime Iv 1 Gm Premix) 1 gm in 50 mls @ 100 mls/hr IVPB Q24H [facility]; Protocol Last Admin: 08/20/18 13:34 Dose: 100 mls/hr Insulin Aspart (Novolog) 0 unit SC ACHS [facility]; Protocol Last Admin: 08/20/18 12:02 Dose: Not Given Insulin Glargine (Lantus) 25 unit SC [facility] Last Admin: 08/19/18 22:37 Dose: 25 units Oseltamivir Phosphate (Tamiflu Susp) 30 mg PO MWF [facility]; Protocol Stop: 08/26/18 09:01 Pantoprazole Sodium (Protonix Ec Tab) 40 mg PO DAILY [facility] Last Admin: 08/20/18 09:56 Dose: 40 mg Sucralfate (Carafate Oral Susp) 1 gm PO QID [facility] Last Admin: 08/20/18 13:34 Dose: 1 gm - Labs Labs: 08/19/18 11:00 08/19/18 11:00 PT 14.6 SECONDS (9.7-12.2) H 08/16/18 16:36 INR 1.3 08/16/18 16:36 APTT > 400 SECONDS (21-34) H* 08/16/18 16:36
[2018-08-20] MEDS: (Lantus) Insulin Glargine, Recombinant SC SCH (22:28)
[2018-08-21] MEDS: (Novolog) Insulin Aspart, Recombinant 100 u/ml 10 ml vial SC SCH ×4 (09:04→21:29)
[2018-08-21] MEDS: Pantoprazole 40 mg EC Tab PO SCH (09:04)
[2018-08-21] MEDS: Sucralfate 1 gm/10 ml Oral Susp UD PO SCH ×3 (09:06→19:02)
--- NOTE | 2018-08-21 14:18 | CP.PCM.PN ---
Subjective - Date & Time of Evaluation Date of Evaluation: 08/21/18 Time of Evaluation: 14:18 Objective - Vital Signs/Intake and Output Vital Signs (last 24 hours): Temp Pulse Resp BP Pulse Ox 97.4 F L 65 20 166/91 H 100 08/21/18 08:00 08/21/18 08:00 08/21/18 08:00 08/21/18 08:00 08/21/18 08:00 Intake and Output: 08/21/18 08/21/18 06:59 18:59 Intake Total 480 Balance 480 - Medications Medications: Current Medications Acetaminophen (Tylenol 325mg Tab) 650 mg PO Q6 PRN PRN Reason: Fever >100.4 F Last Admin: 08/20/18 01:01 Dose: 650 mg Calcium Acetate (Phoslo) 667 mg PO TID [facility] Last Admin: 08/21/18 14:15 Dose: 667 mg Clonidine HCl (Catapres) 0.3 mg PO BID [facility] Last Admin: 08/21/18 09:06 Dose: Not Given Dextrose (Dextrose 50% Inj) 0 ml IV STAT PRN; Protocol PRN Reason: Hypoglycemia Protocol Dextrose (Glutose 15) 0 gm PO ONCE PRN; Protocol PRN Reason: Hypoglycemia Protocol Diphenhydramine HCl (Benadryl) 25 mg PO Q4H PRN PRN Reason: Allergy symptoms Last Admin: 08/21/18 12:40 Dose: 25 mg Docusate Sodium (Colace) 100 mg PO TID [facility] Last Admin: 08/21/18 14:14 Dose: Not Given Gabapentin (Neurontin) 300 mg PO BID [facility] Last Admin: 08/21/18 09:04 Dose: 300 mg Glucagon (Glucagen Diagnostic Kit) 0 mg IM STAT PRN; Protocol PRN Reason: Hypoglycemia Protocol Heparin Sodium (Porcine) (Heparin) 5,000 units SC Q12 [facility] Last Admin: 08/21/18 09:06 Dose: Not Given Hydromorphone HCl (Dilaudid) 2 mg IVP Q4H PRN PRN Reason: Pain, moderate (4-7) Last Admin: 08/21/18 12:40 Dose: 2 mg Vancomycin/Sodium Chloride (Vancomycin 1 Gm/Ns 200 Ml) 1 gm in 200 mls @ 133.333 mls/hr IVPB MWF [facility]; Protocol Stop: 08/24/18 09:01 Last Admin: 08/19/18 17:28 Dose: 133.333 mls/hr Dextrose (Dextrose 5% In Water 1000 Ml) 1,000 mls @ 0 mls/hr IV .Q0M PRN; Protocol PRN Reason: Hypoglycemia Protocol Cefepime HCl (Maxipime Iv 1 Gm Premix) 1 gm in 50 mls @ 100 mls/hr IVPB Q24H [facility]; Protocol Last Admin: 08/20/18 13:34 Dose: 100 mls/hr Insulin Aspart (Novolog) 0 unit SC ACHS [facility]; Protocol Last Admin: 08/21/18 12:00 Dose: Not Given Insulin Glargine (Lantus) 25 unit SC HS [facility] Last Admin: 08/20/18 22:28 Dose: 25 units Oseltamivir Phosphate (Tamiflu Susp) 30 mg PO MWF [facility]; Protocol Stop: 08/26/18 09:01 Pantoprazole Sodium (Protonix Ec Tab) 40 mg PO DAILY [facility] Last Admin: 08/21/18 09:04 Dose: 40 mg Sucralfate (Carafate Oral Susp) 1 gm PO QID [facility] Last Admin: 08/21/18 14:14 Dose: Not Given - Labs Labs: 08/19/18 11:00 08/19/18 11:00 PT 14.6 SECONDS (9.7-12.2) H 08/16/18 16:36 INR 1.3 08/16/18 16:36 APTT > 400 SECONDS (21-34) H* 08/16/18 16:36
--- NOTE | 2018-08-21 18:57 | CP.PCM.PN ---
Subjective - Date & Time of Evaluation Date of Evaluation: 08/21/18 Time of Evaluation: 09:00 - Subjective Subjective: NO NEW POSITIVE CULTURES EXAM UNCHANGED IV RX REORDERED Objective - Vital Signs/Intake and Output Vital Signs (last 24 hours): Temp Pulse Resp BP Pulse Ox 97.8 F 75 18 179/71 H 100 08/21/18 15:45 08/21/18 16:55 08/21/18 15:45 08/21/18 18:00 08/21/18 15:45 Intake and Output: 08/21/18 08/21/18 06:59 18:59 Intake Total 480 800 Balance 480 800 - Medications Medications: Current Medications Acetaminophen (Tylenol 325mg Tab) 650 mg PO Q6 PRN PRN Reason: Fever >100.4 F Last Admin: 08/20/18 01:01 Dose: 650 mg Calcium Acetate (Phoslo) 667 mg PO TID [facility] Last Admin: 08/21/18 14:15 Dose: 667 mg Clonidine HCl (Catapres) 0.3 mg PO BID [facility] Last Admin: 08/21/18 09:06 Dose: Not Given Dextrose (Dextrose 50% Inj) 0 ml IV STAT PRN; Protocol PRN Reason: Hypoglycemia Protocol Dextrose (Glutose 15) 0 gm PO ONCE PRN; Protocol PRN Reason: Hypoglycemia Protocol Diphenhydramine HCl (Benadryl) 25 mg PO Q4H PRN PRN Reason: Allergy symptoms Last Admin: 08/21/18 16:51 Dose: 25 mg Docusate Sodium (Colace) 100 mg PO TID [facility] Last Admin: 08/21/18 14:14 Dose: Not Given Gabapentin (Neurontin) 300 mg PO BID [facility] Last Admin: 08/21/18 09:04 Dose: 300 mg Glucagon (Glucagen Diagnostic Kit) 0 mg IM STAT PRN; Protocol PRN Reason: Hypoglycemia Protocol Heparin Sodium (Porcine) (Heparin) 5,000 units SC Q12 [facility] Last Admin: 08/21/18 09:06 Dose: Not Given Hydromorphone HCl (Dilaudid) 2 mg IVP Q4H PRN PRN Reason: Pain, moderate (4-7) Last Admin: 08/21/18 16:45 Dose: 2 mg Vancomycin/Sodium Chloride (Vancomycin 1 Gm/Ns 200 Ml) 1 gm in 200 mls @ 133.333 mls/hr IVPB MWF [facility]; Protocol Stop: 08/24/18 09:01 Last Admin: 08/19/18 17:28 Dose: 133.333 mls/hr Dextrose (Dextrose 5% In Water 1000 Ml) 1,000 mls @ 0 mls/hr IV .Q0M PRN; Protocol PRN Reason: Hypoglycemia Protocol Cefepime HCl (Maxipime Iv 1 Gm Premix) 1 gm in 50 mls @ 100 mls/hr IVPB Q24H [facility]; Protocol Last Admin: 08/20/18 13:34 Dose: 100 mls/hr Insulin Aspart (Novolog) 0 unit SC [facility]; Protocol Last Admin: 08/21/18 12:00 Dose: Not Given Insulin Glargine (Lantus) 25 unit SC [facility] Last Admin: 08/20/18 22:28 Dose: 25 units Oseltamivir Phosphate (Tamiflu Susp) 30 mg PO [facility]; Protocol Stop: 08/26/18 09:01 Pantoprazole Sodium (Protonix Ec Tab) 40 mg PO DAILY [facility] Last Admin: 08/21/18 09:04 Dose: 40 mg Sucralfate (Carafate Oral Susp) 1 gm PO QID [facility] Last Admin: 08/21/18 14:14 Dose: Not Given - Labs Labs: 08/19/18 11:00 08/19/18 11:00 PT 14.6 SECONDS (9.7-12.2) H 08/16/18 16:36 INR 1.3 08/16/18 16:36 APTT > 400 SECONDS (21-34) H* 08/16/18 16:36 Assessment and Plan (1) Influenza Status: Acute (2) Multifocal pneumonia Status: Acute
[2018-08-21] MEDS: Cefepime IV 1 gm in Dextrose 1 GM/50 ML BAG IVPB SCH (20:40)
[2018-08-21] MEDS: Oseltamivir 6 MG/ML PO SCH (20:49)
[2018-08-21] MEDS: Vancomycin 1 gm/NS 200 ml 1 GM/200 ML BAG IVPB SCH (21:42)
[2018-08-21] MEDS: (Lantus) Insulin Glargine, Recombinant SC SCH (21:45)
--- NOTE | 2018-08-21 23:44 | CP.PCM.PN ---
Subjective - Date & Time of Evaluation Date of Evaluation: 08/21/18 Time of Evaluation: 16:00 - Subjective Subjective: SEEN ON RENAL F/U FEELS MUCH IMPROVED .. IN NAD RECIEVED HD TODAY ON IVAB Objective - Vital Signs/Intake and Output Vital Signs (last 24 hours): Temp Pulse Resp BP Pulse Ox 97.6 F 77 18 136/84 98 08/21/18 19:30 08/21/18 19:30 08/21/18 19:30 08/21/18 19:30 08/21/18 19:30 Intake and Output: 08/21/18 08/22/18 18:59 06:59 Intake Total 800 500 Balance 800 500 - Medications Medications: Current Medications Acetaminophen (Tylenol 325mg Tab) 650 mg PO Q6 PRN PRN Reason: Fever >100.4 F Last Admin: 08/20/18 01:01 Dose: 650 mg Calcium Acetate (Phoslo) 667 mg PO TID [facility] Last Admin: 08/21/18 19:03 Dose: Not Given Clonidine HCl (Catapres) 0.3 mg PO BID [facility] Last Admin: 08/21/18 19:03 Dose: Not Given Dextrose (Dextrose 50% Inj) 0 ml IV STAT PRN; Protocol PRN Reason: Hypoglycemia Protocol Dextrose (Glutose 15) 0 gm PO ONCE PRN; Protocol PRN Reason: Hypoglycemia Protocol Diphenhydramine HCl (Benadryl) 25 mg PO Q4H PRN PRN Reason: Allergy symptoms Last Admin: 08/21/18 20:40 Dose: 25 mg Docusate Sodium (Colace) 100 mg PO TID [facility] Last Admin: 08/21/18 19:03 Dose: Not Given Gabapentin (Neurontin) 300 mg PO BID [facility] Last Admin: 08/21/18 19:03 Dose: Not Given Glucagon (Glucagen Diagnostic Kit) 0 mg IM STAT PRN; Protocol PRN Reason: Hypoglycemia Protocol Heparin Sodium (Porcine) (Heparin) 5,000 units SC Q12 [facility] Last Admin: 08/21/18 21:41 Dose: Not Given Hydromorphone HCl (Dilaudid) 2 mg IVP Q4H PRN PRN Reason: Pain, moderate (4-7) Last Admin: 08/21/18 20:40 Dose: 2 mg Vancomycin/Sodium Chloride (Vancomycin 1 Gm/Ns 200 Ml) 1 gm in 200 mls @ 133.333 mls/hr IVPB [facility]; Protocol Stop: 08/24/18 09:01 Last Admin: 08/21/18 21:42 Dose: 133.333 mls/hr Dextrose (Dextrose 5% In Water 1000 Ml) 1,000 mls @ 0 mls/hr IV .Q0M PRN; Protocol PRN Reason: Hypoglycemia Protocol Cefepime HCl (Maxipime Iv 1 Gm Premix) 1 gm in 50 mls @ 100 mls/hr IVPB Q24H [facility]; Protocol Last Admin: 08/21/18 20:40 Dose: 100 mls/hr Insulin Aspart (Novolog) 0 unit SC ACHS [facility]; Protocol Last Admin: 08/21/18 21:29 Dose: Not Given Insulin Glargine (Lantus) 25 unit SC HS [facility] Last Admin: 08/21/18 21:45 Dose: 25 units Oseltamivir Phosphate (Tamiflu Susp) 30 mg PO [facility]; Protocol Stop: 08/26/18 09:01 Last Admin: 08/21/18 20:49 Dose: 1 dose Pantoprazole Sodium (Protonix Ec Tab) 40 mg PO DAILY [facility] Last Admin: 08/21/18 09:04 Dose: 40 mg Sucralfate (Carafate Tab) 1 gm PO QID [facility] Last Admin: 08/21/18 21:42 Dose: 1 gm - Labs Labs: 08/19/18 11:00 08/19/18 11:00 PT 14.6 SECONDS (9.7-12.2) H 08/16/18 16:36 INR 1.3 08/16/18 16:36 APTT > 400 SECONDS (21-34) H* 08/16/18 16:36 Assessment and Plan - Assessment and Plan (Free Text) Assessment: ESRD ON HD M W F AND SAT ELECTROLYTES ABN .. OK ANEMIA OF CKD .. H/H STABLE PNA AND FLU .. ON IVAB MMP P : C/O CURRENT MANAGEMENT C/O PRESENT CARE C/O H D C/O IVAB
[2018-08-22] MEDS: (Novolog) Insulin Aspart, Recombinant 100 u/ml 10 ml vial SC SCH ×4 (07:12→22:01)
[2018-08-22] MEDS ORDERED: Nitroglycerin 2% Ointment Foilpak UD TOP PRN (08:31)
[2018-08-22] MEDS: Pantoprazole 40 mg EC Tab PO SCH (09:24)
--- NOTE | 2018-08-22 13:50 | CP.PCM.PN ---
Subjective - Date & Time of Evaluation Date of Evaluation: 08/22/18 Time of Evaluation: 13:50 Objective - Vital Signs/Intake and Output Vital Signs (last 24 hours): Temp Pulse Resp BP Pulse Ox 98.2 F 83 20 137/80 100 08/22/18 08:15 08/22/18 08:15 08/22/18 08:15 08/22/18 11:51 08/22/18 08:15 Intake and Output: 08/22/18 08/22/18 06:59 18:59 Intake Total 500 Balance 500 - Medications Medications: Current Medications Acetaminophen (Tylenol 325mg Tab) 650 mg PO Q6 PRN PRN Reason: Fever >100.4 F Last Admin: 08/20/18 01:01 Dose: 650 mg Calcium Acetate (Phoslo) 667 mg PO TID [facility] Last Admin: 08/22/18 09:24 Dose: 667 mg Clonidine HCl (Catapres) 0.3 mg PO BID [facility] Last Admin: 08/22/18 09:24 Dose: Not Given Dextrose (Dextrose 50% Inj) 0 ml IV STAT PRN; Protocol PRN Reason: Hypoglycemia Protocol Dextrose (Glutose 15) 0 gm PO ONCE PRN; Protocol PRN Reason: Hypoglycemia Protocol Diphenhydramine HCl (Benadryl) 25 mg PO Q4H PRN PRN Reason: Allergy symptoms Last Admin: 08/22/18 12:51 Dose: 25 mg Docusate Sodium (Colace) 100 mg PO TID [facility] Last Admin: 08/22/18 09:24 Dose: Not Given Gabapentin (Neurontin) 300 mg PO BID [facility] Last Admin: 08/22/18 09:24 Dose: 300 mg Glucagon (Glucagen Diagnostic Kit) 0 mg IM STAT PRN; Protocol PRN Reason: Hypoglycemia Protocol Heparin Sodium (Porcine) (Heparin) 5,000 units SC Q12 [facility] Last Admin: 08/22/18 09:24 Dose: Not Given Hydromorphone HCl (Dilaudid) 2 mg IVP Q4H PRN PRN Reason: Pain, moderate (4-7) Last Admin: 08/22/18 12:51 Dose: 2 mg Vancomycin/Sodium Chloride (Vancomycin 1 Gm/Ns 200 Ml) 1 gm in 200 mls @ 133.333 mls/hr IVPB MWF [facility]; Protocol Stop: 08/24/18 09:01 Last Admin: 08/21/18 21:42 Dose: 133.333 mls/hr Cefepime HCl (Maxipime Iv 1 Gm Premix) 1 gm in 50 mls @ 100 mls/hr IVPB Q24H [facility]; Protocol Last Admin: 08/21/18 20:40 Dose: 100 mls/hr Insulin Aspart (Novolog) 0 unit SC ACHS [facility]; Protocol Last Admin: 08/22/18 11:38 Dose: Not Given Insulin Glargine (Lantus) 25 unit SC HS [facility] Last Admin: 08/21/18 21:45 Dose: 25 units Nitroglycerin (Nitro-Bid 2% Oint) 1 ea TOP ONCE PRN PRN Reason: sbp greater than 190 Oseltamivir Phosphate (Tamiflu Susp) 30 mg PO MWF [facility]; Protocol Stop: 08/26/18 09:01 Last Admin: 08/21/18 20:49 Dose: 1 dose Pantoprazole Sodium (Protonix Ec Tab) 40 mg PO DAILY [facility] Last Admin: 08/22/18 09:24 Dose: 40 mg Sucralfate (Carafate Tab) 1 gm PO QID [facility] Last Admin: 08/22/18 09:24 Dose: 1 gm - Labs Labs: 08/19/18 11:00 08/19/18 11:00 PT 14.6 SECONDS (9.7-12.2) H 08/16/18 16:36 INR 1.3 08/16/18 16:36 APTT > 400 SECONDS (21-34) H* 08/16/18 16:36
[2018-08-22] MEDS: Cefepime IV 1 gm in Dextrose 1 GM/50 ML BAG IVPB SCH (14:23)
--- NOTE | 2018-08-22 18:19 | CP.PCM.PN ---
Subjective - Date & Time of Evaluation Date of Evaluation: 08/22/18 Time of Evaluation: 07:00 - Subjective Subjective: NO CHANGES Objective - Vital Signs/Intake and Output Vital Signs (last 24 hours): Temp Pulse Resp BP Pulse Ox 97.6 F 71 20 160/94 H 100 08/22/18 16:52 08/22/18 16:52 08/22/18 16:52 08/22/18 16:52 08/22/18 16:52 Intake and Output: 08/22/18 08/22/18 06:59 18:59 Intake Total 500 450 Balance 500 450 - Medications Medications: Current Medications Acetaminophen (Tylenol 325mg Tab) 650 mg PO Q6 PRN PRN Reason: Fever >100.4 F Last Admin: 08/20/18 01:01 Dose: 650 mg Calcium Acetate (Phoslo) 667 mg PO TID [facility] Last Admin: 08/22/18 18:17 Dose: 667 mg Clonidine HCl (Catapres) 0.3 mg PO BID [facility] Last Admin: 08/22/18 18:17 Dose: 0.3 mg Dextrose (Dextrose 50% Inj) 0 ml IV STAT PRN; Protocol PRN Reason: Hypoglycemia Protocol Dextrose (Glutose 15) 0 gm PO ONCE PRN; Protocol PRN Reason: Hypoglycemia Protocol Diphenhydramine HCl (Benadryl) 25 mg PO Q4H PRN PRN Reason: Allergy symptoms Last Admin: 08/22/18 16:50 Dose: 25 mg Docusate Sodium (Colace) 100 mg PO TID [facility] Last Admin: 08/22/18 13:51 Dose: Not Given Gabapentin (Neurontin) 300 mg PO BID [facility] Last Admin: 08/22/18 18:17 Dose: 300 mg Glucagon (Glucagen Diagnostic Kit) 0 mg IM STAT PRN; Protocol PRN Reason: Hypoglycemia Protocol Heparin Sodium (Porcine) (Heparin) 5,000 units SC Q12 [facility] Last Admin: 08/22/18 09:24 Dose: Not Given Hydromorphone HCl (Dilaudid) 2 mg IVP Q4H PRN PRN Reason: Pain, moderate (4-7) Last Admin: 08/22/18 16:51 Dose: 2 mg Vancomycin/Sodium Chloride (Vancomycin 1 Gm/Ns 200 Ml) 1 gm in 200 mls @ 133.333 mls/hr IVPB MWF [facility]; Protocol Stop: 08/24/18 09:01 Last Admin: 08/21/18 21:42 Dose: 133.333 mls/hr Cefepime HCl (Maxipime Iv 1 Gm Premix) 1 gm in 50 mls @ 100 mls/hr IVPB Q24H [facility]; Protocol Last Admin: 08/22/18 14:23 Dose: 100 mls/hr Insulin Aspart (Novolog) 0 unit SC ACHS [facility]; Protocol Last Admin: 08/22/18 16:52 Dose: 3 units Insulin Glargine (Lantus) 25 unit SC HS [facility] Last Admin: 08/21/18 21:45 Dose: 25 units Nitroglycerin (Nitro-Bid 2% Oint) 1 ea TOP ONCE PRN PRN Reason: sbp greater than 190 Oseltamivir Phosphate (Tamiflu Susp) 30 mg PO [facility]; Protocol Stop: 08/26/18 09:01 Last Admin: 08/21/18 20:49 Dose: 1 dose Pantoprazole Sodium (Protonix Ec Tab) 40 mg PO DAILY [facility] Last Admin: 08/22/18 09:24 Dose: 40 mg Sucralfate (Carafate Tab) 1 gm PO QID [facility] Last Admin: 08/22/18 18:17 Dose: 1 gm - Labs Labs: 08/19/18 11:00 08/19/18 11:00 PT 14.6 SECONDS (9.7-12.2) H 08/16/18 16:36 INR 1.3 08/16/18 16:36 APTT > 400 SECONDS (21-34) H* 08/16/18 16:36 - Constitutional Appears: Older Than Stated Age, Chronically Ill - Head Exam Head Exam: NORMOCEPHALIC - Eye Exam Eye Exam: absent: Scleral icterus - ENT Exam ENT Exam: Mucous Membranes Dry - Neck Exam Neck Exam: absent: Lymphadenopathy - Respiratory Exam Respiratory Exam: Decreased Breath Sounds - Cardiovascular Exam Cardiovascular Exam: REGULAR RHYTHM - GI/Abdominal Exam GI & Abdominal Exam: Distended - Rectal Exam Rectal Exam: Deferred - Exam Exam: NORMAL INSPECTION - Extremities Exam Extremities Exam: absent: Pedal Edema - Back Exam Back Exam: absent: CVA tenderness (L), CVA tenderness (R) Assessment and Plan (1) Influenza Status: Acute (2) Multifocal pneumonia Status: Acute - Assessment and Plan (Free Text) Assessment: CONT IV RX
[2018-08-22] MEDS: (Lantus) Insulin Glargine, Recombinant SC SCH (21:03)
[2018-08-23] MEDS: (Novolog) Insulin Aspart, Recombinant 100 u/ml 10 ml vial SC SCH ×4 (08:01→22:19)
[2018-08-23] MEDS: Oseltamivir 6 MG/ML PO SCH (09:14)
[2018-08-23] MEDS: Pantoprazole 40 mg EC Tab PO SCH (09:15)
[2018-08-23] MEDS: Vancomycin 1 gm/NS 200 ml 1 GM/200 ML BAG IVPB SCH (09:15)
[2018-08-23] MEDS: Epoetin Alfa 10,000 unit/ml Dialysis IV SCH (17:08)
--- NOTE | 2018-08-23 17:59 | CP.PCM.PN ---
Subjective - Date & Time of Evaluation Date of Evaluation: 08/23/18 Time of Evaluation: 17:00 - Subjective Subjective: SEEN ON RENAL F/U SEEN IN THE HD UNIT .. JUST COMPLETED HER HD FEELS MUCH BETTER FOR ANOTHER HD TOMORROW SAT Objective - Vital Signs/Intake and Output Vital Signs (last 24 hours): Temp Pulse Resp BP Pulse Ox 98.1 F 89 19 156/78 H 100 08/23/18 13:50 08/23/18 13:50 08/23/18 13:50 08/23/18 16:50 08/23/18 13:50 Intake and Output: 08/23/18 08/23/18 06:59 18:59 Intake Total 990 500 Balance 990 500 - Medications Medications: Current Medications Acetaminophen (Tylenol 325mg Tab) 650 mg PO Q6 PRN PRN Reason: Fever >100.4 F Last Admin: 08/20/18 01:01 Dose: 650 mg Calcium Acetate (Phoslo) 667 mg PO TID [facility] Last Admin: 08/23/18 09:15 Dose: 667 mg Clonidine HCl (Catapres) 0.3 mg PO BID [facility] Last Admin: 08/23/18 09:15 Dose: Not Given Dextrose (Dextrose 50% Inj) 0 ml IV STAT PRN; Protocol PRN Reason: Hypoglycemia Protocol Dextrose (Glutose 15) 0 gm PO ONCE PRN; Protocol PRN Reason: Hypoglycemia Protocol Diphenhydramine HCl (Benadryl) 25 mg PO Q4H PRN PRN Reason: Allergy symptoms Last Admin: 08/23/18 17:07 Dose: 25 mg Docusate Sodium (Colace) 100 mg PO TID [facility] Last Admin: 08/23/18 10:42 Dose: 100 mg Epoetin James (Procrit) 10,000 unit IV MWF [facility] Stop: 08/29/18 23:59 Last Admin: 08/23/18 17:08 Dose: 10,000 unit Gabapentin (Neurontin) 300 mg PO BID [facility] Last Admin: 08/23/18 09:14 Dose: 300 mg Glucagon (Glucagen Diagnostic Kit) 0 mg IM STAT PRN; Protocol PRN Reason: Hypoglycemia Protocol Heparin Sodium (Porcine) (Heparin) 5,000 units SC Q12 [facility] Last Admin: 08/23/18 09:14 Dose: Not Given Hydromorphone HCl (Dilaudid) 2 mg IVP Q4H PRN PRN Reason: Pain, moderate (4-7) Last Admin: 08/23/18 17:04 Dose: 2 mg Vancomycin/Sodium Chloride (Vancomycin 1 Gm/Ns 200 Ml) 1 gm in 200 mls @ 133.333 mls/hr IVPB [facility]; Protocol Stop: 08/24/18 09:01 Last Admin: 08/23/18 09:15 Dose: Not Given Cefepime HCl (Maxipime Iv 1 Gm Premix) 1 gm in 50 mls @ 100 mls/hr IVPB Q24H [facility]; Protocol Last Admin: 08/22/18 14:23 Dose: 100 mls/hr Insulin Aspart (Novolog) 0 unit SC ACHS [facility]; Protocol Last Admin: 08/23/18 12:27 Dose: Not Given Insulin Glargine (Lantus) 25 unit SC HS [facility] Last Admin: 08/22/18 21:03 Dose: 25 units Nitroglycerin (Nitro-Bid 2% Oint) 1 ea TOP ONCE PRN PRN Reason: sbp greater than 190 Last Admin: 08/23/18 08:01 Dose: 1 ea Oseltamivir Phosphate (Tamiflu Susp) 30 mg PO [facility]; Protocol Stop: 08/26/18 09:01 Last Admin: 08/23/18 09:14 Dose: 1 dose Pantoprazole Sodium (Protonix Ec Tab) 40 mg PO DAILY [facility] Last Admin: 08/23/18 09:15 Dose: 40 mg Sucralfate (Carafate Tab) 1 gm PO QID [facility] Last Admin: 08/23/18 09:15 Dose: 1 gm - Labs Labs: 08/19/18 11:00 08/19/18 11:00 PT 14.6 SECONDS (9.7-12.2) H 08/16/18 16:36 INR 1.3 08/16/18 16:36 APTT > 400 SECONDS (21-34) H* 08/16/18 16:36 Assessment and Plan - Assessment and Plan (Free Text) Assessment: ESRD ON HD M W F AND SAT ANEMIA OF CKD .. H/H STABLE ELECTROLYTES ABN .. NOW OK FLU / PNA .. ON IVAB MMP P : C/O CURRENT CARE C/O PRESENT MANAGEMNT
--- NOTE | 2018-08-23 18:25 | CP.PCM.PN ---
Subjective - Date & Time of Evaluation Date of Evaluation: 08/23/18 Time of Evaluation: 18:25 Objective - Vital Signs/Intake and Output Vital Signs (last 24 hours): Temp Pulse Resp BP Pulse Ox 98.2 F 76 19 167/80 H 100 08/23/18 17:20 08/23/18 17:20 08/23/18 17:20 08/23/18 17:20 08/23/18 17:20 Intake and Output: 08/23/18 08/23/18 06:59 18:59 Intake Total 990 500 Balance 990 500 - Medications Medications: Current Medications Acetaminophen (Tylenol 325mg Tab) 650 mg PO Q6 PRN PRN Reason: Fever >100.4 F Last Admin: 08/20/18 01:01 Dose: 650 mg Calcium Acetate (Phoslo) 667 mg PO TID [facility] Last Admin: 08/23/18 09:15 Dose: 667 mg Clonidine HCl (Catapres) 0.3 mg PO BID [facility] Last Admin: 08/23/18 09:15 Dose: Not Given Dextrose (Dextrose 50% Inj) 0 ml IV STAT PRN; Protocol PRN Reason: Hypoglycemia Protocol Dextrose (Glutose 15) 0 gm PO ONCE PRN; Protocol PRN Reason: Hypoglycemia Protocol Diphenhydramine HCl (Benadryl) 25 mg PO Q4H PRN PRN Reason: Allergy symptoms Last Admin: 08/23/18 17:07 Dose: 25 mg Docusate Sodium (Colace) 100 mg PO TID [facility] Last Admin: 08/23/18 10:42 Dose: 100 mg Epoetin James (Procrit) 10,000 unit IV MWF [facility] Stop: 08/29/18 23:59 Last Admin: 08/23/18 17:08 Dose: 10,000 unit Gabapentin (Neurontin) 300 mg PO BID [facility] Last Admin: 08/23/18 09:14 Dose: 300 mg Glucagon (Glucagen Diagnostic Kit) 0 mg IM STAT PRN; Protocol PRN Reason: Hypoglycemia Protocol Heparin Sodium (Porcine) (Heparin) 5,000 units SC Q12 [facility] Last Admin: 08/23/18 09:14 Dose: Not Given Hydromorphone HCl (Dilaudid) 2 mg IVP Q4H PRN PRN Reason: Pain, moderate (4-7) Last Admin: 08/23/18 17:04 Dose: 2 mg Vancomycin/Sodium Chloride (Vancomycin 1 Gm/Ns 200 Ml) 1 gm in 200 mls @ 133.333 mls/hr IVPB [facility]; Protocol Stop: 08/24/18 09:01 Last Admin: 08/23/18 09:15 Dose: Not Given Cefepime HCl (Maxipime Iv 1 Gm Premix) 1 gm in 50 mls @ 100 mls/hr IVPB Q24H [facility]; Protocol Last Admin: 08/22/18 14:23 Dose: 100 mls/hr Insulin Aspart (Novolog) 0 unit SC ACHS [facility]; Protocol Last Admin: 08/23/18 12:27 Dose: Not Given Insulin Glargine (Lantus) 25 unit SC HS [facility] Last Admin: 08/22/18 21:03 Dose: 25 units Nitroglycerin (Nitro-Bid 2% Oint) 1 ea TOP ONCE PRN PRN Reason: sbp greater than 190 Last Admin: 08/23/18 08:01 Dose: 1 ea Oseltamivir Phosphate (Tamiflu Susp) 30 mg PO [facility]; Protocol Stop: 08/26/18 09:01 Last Admin: 08/23/18 09:14 Dose: 1 dose Pantoprazole Sodium (Protonix Ec Tab) 40 mg PO DAILY [facility] Last Admin: 08/23/18 09:15 Dose: 40 mg Sucralfate (Carafate Tab) 1 gm PO QID [facility] Last Admin: 08/23/18 09:15 Dose: 1 gm - Labs Labs: 08/19/18 11:00 08/19/18 11:00 PT 14.6 SECONDS (9.7-12.2) H 08/16/18 16:36 INR 1.3 08/16/18 16:36 APTT > 400 SECONDS (21-34) H* 08/16/18 16:36
--- NOTE | 2018-08-23 20:13 | CP.PCM.PN ---
Subjective - Date & Time of Evaluation Date of Evaluation: 08/23/18 Time of Evaluation: 08:00 - Subjective Subjective: improving on IV antibiotics will repeat cxr Objective - Vital Signs/Intake and Output Vital Signs (last 24 hours): Temp Pulse Resp BP Pulse Ox 97.9 F 76 20 153/97 H 98 08/23/18 18:00 08/23/18 18:00 08/23/18 18:00 08/23/18 18:00 08/23/18 18:00 Intake and Output: 08/23/18 08/24/18 18:59 06:59 Intake Total 500 Balance 500 - Medications Medications: Current Medications Acetaminophen (Tylenol 325mg Tab) 650 mg PO Q6 PRN PRN Reason: Fever >100.4 F Last Admin: 08/20/18 01:01 Dose: 650 mg Calcium Acetate (Phoslo) 667 mg PO TID [facility] Last Admin: 08/23/18 18:42 Dose: 667 mg Clonidine HCl (Catapres) 0.3 mg PO BID [facility] Last Admin: 08/23/18 18:41 Dose: 0.3 mg Dextrose (Dextrose 50% Inj) 0 ml IV STAT PRN; Protocol PRN Reason: Hypoglycemia Protocol Dextrose (Glutose 15) 0 gm PO ONCE PRN; Protocol PRN Reason: Hypoglycemia Protocol Diphenhydramine HCl (Benadryl) 25 mg PO Q4H PRN PRN Reason: Allergy symptoms Last Admin: 08/23/18 17:07 Dose: 25 mg Docusate Sodium (Colace) 100 mg PO TID [facility] Last Admin: 08/23/18 18:41 Dose: 100 mg Epoetin James (Procrit) 10,000 unit IV MWF [facility] Stop: 08/29/18 23:59 Last Admin: 08/23/18 17:08 Dose: 10,000 unit Gabapentin (Neurontin) 300 mg PO BID [facility] Last Admin: 08/23/18 18:41 Dose: 300 mg Glucagon (Glucagen Diagnostic Kit) 0 mg IM STAT PRN; Protocol PRN Reason: Hypoglycemia Protocol Heparin Sodium (Porcine) (Heparin) 5,000 units SC Q12 [facility] Last Admin: 08/23/18 09:14 Dose: Not Given Hydromorphone HCl (Dilaudid) 2 mg IVP Q4H PRN PRN Reason: Pain, moderate (4-7) Last Admin: 08/23/18 17:04 Dose: 2 mg Vancomycin/Sodium Chloride (Vancomycin 1 Gm/Ns 200 Ml) 1 gm in 200 mls @ 133.333 mls/hr IVPB [facility] [place]; Protocol Stop: 08/24/18 09:01 Last Admin: 08/23/18 09:15 Dose: Not Given Cefepime HCl (Maxipime Iv 1 Gm Premix) 1 gm in 50 mls @ 100 mls/hr IVPB Q24H [facility]; Protocol Last Admin: 08/22/18 14:23 Dose: 100 mls/hr Insulin Aspart (Novolog) 0 unit SC ACHS [facility]; Protocol Last Admin: 08/23/18 18:42 Dose: 1 units Insulin Glargine (Lantus) 25 unit SC [facility] Last Admin: 08/22/18 21:03 Dose: 25 units Nitroglycerin (Nitro-Bid 2% Oint) 1 ea TOP ONCE PRN PRN Reason: sbp greater than 190 Last Admin: 08/23/18 08:01 Dose: 1 ea Oseltamivir Phosphate (Tamiflu Susp) 30 mg PO [facility] [place]; Protocol Stop: 08/26/18 09:01 Last Admin: 08/23/18 09:14 Dose: 1 dose Pantoprazole Sodium (Protonix Ec Tab) 40 mg PO DAILY [facility] Last Admin: 08/23/18 09:15 Dose: 40 mg Sucralfate (Carafate Tab) 1 gm PO QID [facility] Last Admin: 08/23/18 18:41 Dose: 1 gm - Labs Labs: 08/19/18 11:00 08/19/18 11:00 PT 14.6 SECONDS (9.7-12.2) H 08/16/18 16:36 INR 1.3 08/16/18 16:36 APTT > 400 SECONDS (21-34) H* 08/16/18 16:36 - Constitutional Appears: Non-toxic, Chronically Ill - Head Exam Head Exam: NORMOCEPHALIC - Eye Exam Eye Exam: absent: Scleral icterus - ENT Exam ENT Exam: Mucous Membranes Dry - Neck Exam Neck Exam: absent: Thyromegaly - Respiratory Exam Respiratory Exam: Decreased Breath Sounds - Cardiovascular Exam Cardiovascular Exam: REGULAR RHYTHM - GI/Abdominal Exam GI & Abdominal Exam: Distended, Soft - Rectal Exam Rectal Exam: Deferred - Exam Exam: NORMAL INSPECTION - Extremities Exam Extremities Exam: absent: Pedal Edema Assessment and Plan (1) Influenza Status: Acute (2) Multifocal pneumonia Status: Acute - Assessment and Plan (Free Text) Assessment: cont iv rx
[2018-08-23] MEDS: Cefepime IV 1 gm in Dextrose 1 GM/50 ML BAG IVPB SCH (21:33)
[2018-08-23] MEDS: (Lantus) Insulin Glargine, Recombinant SC SCH (22:19)
--- NOTE | 2018-08-24 09:02 | RAD ---
Date of service: 08/23/2018 HISTORY: r/o pneumonia COMPARISON: 08/16/2018. FINDINGS: Right-sided MediPort terminates at the cavoatrial junction LUNGS: There is interval improved aeration in the lungs. There is mild pulmonary venous congestion. No focal consolidation. PLEURA: No pleural effusions or pneumothorax. CARDIOVASCULAR: There is moderate cardiomegaly. No aortic atherosclerotic calcifications present. OSSEOUS STRUCTURES: Within normal limits for the patient's age. VISUALIZED UPPER ABDOMEN: Normal. OTHER FINDINGS: None. IMPRESSION: No active pulmonary disease.. Moderate cardiomegaly and improving pulmonary venous congestion.
[2018-08-24] MEDS: Pantoprazole 40 mg EC Tab PO SCH (09:16)
[2018-08-24] MEDS: (Novolog) Insulin Aspart, Recombinant 100 u/ml 10 ml vial SC SCH ×3 (09:16→17:22)
[2018-08-24] MEDS ORDERED: Nitroglycerin 2% Ointment Foilpak UD TOP PRN ×2 (13:18→13:25)
[2018-08-24] MEDS: Cefepime IV 1 gm in Dextrose 1 GM/50 ML BAG IVPB SCH (14:43)
--- NOTE | 2018-08-24 16:51 | CP.PCM.PN ---
Subjective - Date & Time of Evaluation Date of Evaluation: 08/24/18 Time of Evaluation: 16:51 Objective - Vital Signs/Intake and Output Vital Signs (last 24 hours): Temp Pulse Resp BP Pulse Ox 97.7 F 76 20 158/85 H 97 08/24/18 16:18 08/24/18 16:18 08/24/18 16:18 08/24/18 16:18 08/24/18 16:18 Intake and Output: 08/24/18 08/24/18 06:59 18:59 Intake Total 500 Balance 500 - Medications Medications: Current Medications Acetaminophen (Tylenol 325mg Tab) 650 mg PO Q6 PRN PRN Reason: Fever >100.4 F Last Admin: 08/24/18 13:32 Dose: 650 mg Calcium Acetate (Phoslo) 667 mg PO TID [facility] Last Admin: 08/24/18 13:12 Dose: 667 mg Clonidine HCl (Catapres) 0.3 mg PO BID [facility] Last Admin: 08/24/18 10:09 Dose: Not Given Dextrose (Dextrose 50% Inj) 0 ml IV STAT PRN; Protocol PRN Reason: Hypoglycemia Protocol Dextrose (Glutose 15) 0 gm PO ONCE PRN; Protocol PRN Reason: Hypoglycemia Protocol Diphenhydramine HCl (Benadryl) 25 mg PO Q4H PRN PRN Reason: Allergy symptoms Last Admin: 08/24/18 13:12 Dose: 25 mg Docusate Sodium (Colace) 100 mg PO TID [facility] Last Admin: 08/24/18 13:12 Dose: 100 mg Epoetin James (Procrit) 10,000 unit IV MWF [facility] Stop: 08/29/18 23:59 Last Admin: 08/23/18 17:08 Dose: 10,000 unit Gabapentin (Neurontin) 300 mg PO BID [facility] Last Admin: 08/24/18 09:16 Dose: 300 mg Glucagon (Glucagen Diagnostic Kit) 0 mg IM STAT PRN; Protocol PRN Reason: Hypoglycemia Protocol Heparin Sodium (Porcine) (Heparin) 5,000 units SC Q12 [facility] Last Admin: 08/24/18 10:06 Dose: Not Given Hydromorphone HCl (Dilaudid) 2 mg IVP Q4H PRN PRN Reason: Pain, moderate (4-7) Last Admin: 08/24/18 13:12 Dose: 2 mg Cefepime HCl (Maxipime Iv 1 Gm Premix) 1 gm in 50 mls @ 100 mls/hr IVPB Q24H [facility]; Protocol Last Admin: 08/24/18 14:43 Dose: Not Given Insulin Aspart (Novolog) 0 unit SC ACHS [facility]; Protocol Last Admin: 08/24/18 12:49 Dose: Not Given Insulin Glargine (Lantus) 25 unit SC HS [facility] Last Admin: 08/23/18 22:19 Dose: 25 units Nitroglycerin (Nitro-Bid 2% Oint) 1 ea TOP ONCE PRN PRN Reason: sbp greater than 190 Last Admin: 08/23/18 08:01 Dose: 1 ea Nitroglycerin (Nitro-Bid 2% Oint) 1 ea TOP Q6H PRN PRN Reason: Other Last Admin: 08/24/18 13:35 Dose: 1 ea Oseltamivir Phosphate (Tamiflu Susp) 30 mg PO MWF [facility]; Protocol Stop: 08/26/18 09:01 Last Admin: 08/23/18 09:14 Dose: 1 dose Pantoprazole Sodium (Protonix Ec Tab) 40 mg PO DAILY [facility] Last Admin: 08/24/18 09:16 Dose: 40 mg Sucralfate (Carafate Tab) 1 gm PO QID [facility] Last Admin: 08/24/18 13:12 Dose: 1 gm - Labs Labs: 08/19/18 11:00 08/19/18 11:00 PT 14.6 SECONDS (9.7-12.2) H 08/16/18 16:36 INR 1.3 08/16/18 16:36 APTT > 400 SECONDS (21-34) H* 08/16/18 16:36
[2018-08-24] MEDS: (Lantus) Insulin Glargine, Recombinant SC SCH (21:57)
[2018-08-25] MEDS: (Novolog) Insulin Aspart, Recombinant 100 u/ml 10 ml vial SC SCH ×4 (08:40→17:41)
[2018-08-25] MEDS: Pantoprazole 40 mg EC Tab PO SCH (09:59)
[2018-08-25] MEDS: Cefepime IV 1 gm in Dextrose 1 GM/50 ML BAG IVPB SCH (13:58)
--- NOTE | 2018-08-25 15:25 | CP.PCM.PN ---
Subjective - Date & Time of Evaluation Date of Evaluation: 08/25/18 Time of Evaluation: 07:00 - Subjective Subjective: no distress Objective - Vital Signs/Intake and Output Vital Signs (last 24 hours): Temp Pulse Resp BP Pulse Ox 98.3 F 100 H 18 155/90 H 100 08/25/18 08:00 08/25/18 08:00 08/25/18 08:00 08/25/18 08:00 08/25/18 08:00 Intake and Output: 08/25/18 08/25/18 06:59 18:59 Intake Total 850 Balance 850 - Medications Medications: Current Medications Acetaminophen (Tylenol 325mg Tab) 650 mg PO Q6 PRN PRN Reason: Fever >100.4 F Last Admin: 08/24/18 13:32 Dose: 650 mg Calcium Acetate (Phoslo) 667 mg PO [facility] Last Admin: 08/25/18 12:53 Dose: 667 mg Clonidine HCl (Catapres) 0.3 mg PO BID [facility] Last Admin: 08/25/18 09:59 Dose: 0.3 mg Dextrose (Dextrose 50% Inj) 0 ml IV STAT PRN; Protocol PRN Reason: Hypoglycemia Protocol Dextrose (Glutose 15) 0 gm PO ONCE PRN; Protocol PRN Reason: Hypoglycemia Protocol Diphenhydramine HCl (Benadryl) 25 mg PO Q4H PRN PRN Reason: Allergy symptoms Last Admin: 08/25/18 13:58 Dose: 25 mg Docusate Sodium (Colace) 100 mg PO TID [facility] Last Admin: 08/25/18 13:58 Dose: 100 mg Epoetin James (Procrit) 10,000 unit IV MWF [facility] Stop: 08/29/18 23:59 Last Admin: 08/23/18 17:08 Dose: 10,000 unit Gabapentin (Neurontin) 300 mg PO BID [facility] Last Admin: 08/25/18 09:59 Dose: 300 mg Glucagon (Glucagen Diagnostic Kit) 0 mg IM STAT PRN; Protocol PRN Reason: Hypoglycemia Protocol Hydromorphone HCl (Dilaudid) 2 mg IVP Q4H PRN PRN Reason: Pain, moderate (4-7) Last Admin: 08/25/18 13:58 Dose: 2 mg Insulin Aspart (Novolog) 0 unit SC [facility]; Protocol Last Admin: 08/25/18 12:53 Dose: 1 units Insulin Glargine (Lantus) 25 unit SC HS [facility] Last Admin: 08/24/18 21:57 Dose: 25 units Nitroglycerin (Nitro-Bid 2% Oint) 1 ea TOP ONCE PRN PRN Reason: sbp greater than 190 Last Admin: 08/23/18 08:01 Dose: 1 ea Nitroglycerin (Nitro-Bid 2% Oint) 1 ea TOP Q6H PRN PRN Reason: Other Last Admin: 08/24/18 13:35 Dose: 1 ea Pantoprazole Sodium (Protonix Ec Tab) 40 mg PO DAILY [facility] Last Admin: 08/25/18 09:59 Dose: 40 mg Sucralfate (Carafate Tab) 1 gm PO QID [facility] Last Admin: 08/25/18 13:58 Dose: 1 gm - Labs Labs: 08/19/18 11:00 08/19/18 11:00 PT 14.6 SECONDS (9.7-12.2) H 08/16/18 16:36 INR 1.3 08/16/18 16:36 APTT > 400 SECONDS (21-34) H* 08/16/18 16:36 - Constitutional Appears: Non-toxic - Head Exam Head Exam: NORMOCEPHALIC - Eye Exam Eye Exam: absent: Scleral icterus - ENT Exam ENT Exam: Mucous Membranes Dry - Neck Exam Neck Exam: absent: Lymphadenopathy - Respiratory Exam Respiratory Exam: Decreased Breath Sounds - Cardiovascular Exam Cardiovascular Exam: REGULAR RHYTHM - GI/Abdominal Exam GI & Abdominal Exam: Distended, Soft Assessment and Plan (1) Influenza Status: Acute (2) Multifocal pneumonia Status: Acute - Assessment and Plan (Free Text) Assessment: dr abundio robert
--- NOTE | 2018-08-25 15:36 | CP.PCM.PN ---
Subjective - Date & Time of Evaluation Date of Evaluation: 08/25/18 Time of Evaluation: 15:36 Objective - Vital Signs/Intake and Output Vital Signs (last 24 hours): Temp Pulse Resp BP Pulse Ox 98.3 F 100 H 18 155/90 H 100 08/25/18 08:00 08/25/18 08:00 08/25/18 08:00 08/25/18 08:00 08/25/18 08:00 Intake and Output: 08/25/18 08/25/18 06:59 18:59 Intake Total 850 Balance 850 - Medications Medications: Current Medications Acetaminophen (Tylenol 325mg Tab) 650 mg PO Q6 PRN PRN Reason: Fever >100.4 F Last Admin: 08/24/18 13:32 Dose: 650 mg Calcium Acetate (Phoslo) 667 mg PO TIDCC [facility] Last Admin: 08/25/18 12:53 Dose: 667 mg Clonidine HCl (Catapres) 0.3 mg PO BID [facility] Last Admin: 08/25/18 09:59 Dose: 0.3 mg Dextrose (Dextrose 50% Inj) 0 ml IV STAT PRN; Protocol PRN Reason: Hypoglycemia Protocol Dextrose (Glutose 15) 0 gm PO ONCE PRN; Protocol PRN Reason: Hypoglycemia Protocol Diphenhydramine HCl (Benadryl) 25 mg PO Q4H PRN PRN Reason: Allergy symptoms Last Admin: 08/25/18 13:58 Dose: 25 mg Docusate Sodium (Colace) 100 mg PO TID [facility] Last Admin: 08/25/18 13:58 Dose: 100 mg Epoetin James (Procrit) 10,000 unit IV MWF [facility] Stop: 08/29/18 23:59 Last Admin: 08/23/18 17:08 Dose: 10,000 unit Gabapentin (Neurontin) 300 mg PO BID [facility] Last Admin: 08/25/18 09:59 Dose: 300 mg Glucagon (Glucagen Diagnostic Kit) 0 mg IM STAT PRN; Protocol PRN Reason: Hypoglycemia Protocol Hydromorphone HCl (Dilaudid) 2 mg IVP Q4H PRN PRN Reason: Pain, moderate (4-7) Last Admin: 08/25/18 13:58 Dose: 2 mg Insulin Aspart (Novolog) 0 unit SC [facility]; Protocol Last Admin: 08/25/18 12:53 Dose: 1 units Insulin Glargine (Lantus) 25 unit SC HS [facility] Last Admin: 08/24/18 21:57 Dose: 25 units Nitroglycerin (Nitro-Bid 2% Oint) 1 ea TOP ONCE PRN PRN Reason: sbp greater than 190 Last Admin: 08/23/18 08:01 Dose: 1 ea Nitroglycerin (Nitro-Bid 2% Oint) 1 ea TOP Q6H PRN PRN Reason: Other Last Admin: 08/24/18 13:35 Dose: 1 ea Pantoprazole Sodium (Protonix Ec Tab) 40 mg PO DAILY [facility] Last Admin: 08/25/18 09:59 Dose: 40 mg Sucralfate (Carafate Tab) 1 gm PO QID [facility] Last Admin: 08/25/18 13:58 Dose: 1 gm - Labs Labs: 08/19/18 11:00 08/19/18 11:00 PT 14.6 SECONDS (9.7-12.2) H 08/16/18 16:36 INR 1.3 08/16/18 16:36 APTT > 400 SECONDS (21-34) H* 08/16/18 16:36
[2018-08-25] MEDS: (Lantus) Insulin Glargine, Recombinant SC SCH (21:45)
[2018-08-26] MEDS: (Novolog) Insulin Aspart, Recombinant 100 u/ml 10 ml vial SC SCH ×4 (09:03→22:14)
[2018-08-26] MEDS: Pantoprazole 40 mg EC Tab PO SCH (09:03)
[2018-08-26] MEDS: Epoetin Alfa 10,000 unit/ml Dialysis IV SCH (16:17)
[2018-08-26 18:22] LABS: BASO % 0.8 % (0.0-2.0); EOS # 0.3 K/uL (0.0-0.7); HEMOGLOBIN 10.1 g/dL (11.0-16.0); LYMPH # 0.9 K/uL (1.0-4.3); LYMPH % 16.8 % (20.0-40.0); MEAN CELL VOLUME 97.4 fL (81.0-99.0); MEAN CORPUSCULAR HEMOGLOBIN 31.5 pg (27.0-31.0); MEAN CORPUSCULAR HGB CONC 32.4 g/dL (33.0-37.0); MEAN PLATELET VOLUME 7.4 fL (7.2-11.7); MONO # 0.5 K/uL (0.0-0.8); NEUT # 3.4 K/uL (1.8-7.0); NEUT % 66.4 % (50.0-75.0); NRBC % 0.1 % (0.0-2.0); RBC 3.21 Mil/uL (3.80-5.20); RED CELL DISTRIBUTION WIDTH 17.1 % (11.5-14.5); WHITE BLOOD COUNT 5.2 K/uL (4.8-10.8)
[2018-08-26] MEDS: (Lantus) Insulin Glargine, Recombinant SC SCH (22:47)
[2018-08-27 00:37] VITALS: TEMP 97.7
[2018-08-27 08:33] VITALS: BP 151/100; PULSE 98; RESP 20; O2SAT 100
[2018-08-27] MEDS: Pantoprazole 40 mg EC Tab PO SCH (09:31)
[2018-08-27] MEDS: (Novolog) Insulin Aspart, Recombinant 100 u/ml 10 ml vial SC SCH ×2 (09:33→12:46)
--- NOTE | 2018-08-27 11:29 | CP.PCM.PN ---
Subjective - Date & Time of Evaluation Date of Evaluation: 08/27/18 Time of Evaluation: 11:29 - Subjective Subjective: PATIENT SEEN AND EXAMINED AT THE BEDSIDE Objective - Vital Signs/Intake and Output Vital Signs (last 24 hours): Temp Pulse Resp BP Pulse Ox 97.7 F 98 H 20 151/100 H 100 08/27/18 08:00 08/27/18 08:00 08/27/18 08:00 08/27/18 08:00 08/27/18 08:00 - Medications Medications: Current Medications Acetaminophen (Tylenol 325mg Tab) 650 mg PO Q6 PRN PRN Reason: Fever >100.4 F Last Admin: 08/24/18 13:32 Dose: 650 mg Calcium Acetate (Phoslo) 667 mg PO TIDCC [facility] Last Admin: 08/27/18 09:32 Dose: 667 mg Clonidine HCl (Catapres) 0.3 mg PO BID [facility] Last Admin: 08/27/18 09:32 Dose: 0.3 mg Dextrose (Dextrose 50% Inj) 0 ml IV STAT PRN; Protocol PRN Reason: Hypoglycemia Protocol Dextrose (Glutose 15) 0 gm PO ONCE PRN; Protocol PRN Reason: Hypoglycemia Protocol Diphenhydramine HCl (Benadryl) 25 mg PO Q4H PRN PRN Reason: Allergy symptoms Last Admin: 08/27/18 06:48 Dose: 25 mg Docusate Sodium (Colace) 100 mg PO TID [facility] Last Admin: 08/27/18 09:31 Dose: 100 mg Epoetin James (Procrit) 10,000 unit IV MWF [facility] Stop: 08/29/18 23:59 Last Admin: 08/26/18 16:17 Dose: 10,000 unit Gabapentin (Neurontin) 300 mg PO BID [facility] Last Admin: 08/27/18 09:32 Dose: 300 mg Glucagon (Glucagen Diagnostic Kit) 0 mg IM STAT PRN; Protocol PRN Reason: Hypoglycemia Protocol Hydromorphone HCl (Dilaudid) 2 mg IVP Q4H PRN PRN Reason: Pain, moderate (4-7) Last Admin: 08/27/18 10:51 Dose: 2 mg Insulin Aspart (Novolog) 0 unit SC ACHS [facility]; Protocol Last Admin: 08/27/18 09:33 Dose: 4 units Insulin Glargine (Lantus) 25 unit SC HS [facility] Last Admin: 08/26/18 22:47 Dose: 25 units Nitroglycerin (Nitro-Bid 2% Oint) 1 ea TOP ONCE PRN PRN Reason: sbp greater than 190 Last Admin: 08/23/18 08:01 Dose: 1 ea Nitroglycerin (Nitro-Bid 2% Oint) 1 ea TOP Q6H PRN PRN Reason: Other Last Admin: 08/24/18 13:35 Dose: 1 ea Pantoprazole Sodium (Protonix Ec Tab) 40 mg PO DAILY [facility] Last Admin: 08/27/18 09:31 Dose: 40 mg Sucralfate (Carafate Tab) 1 gm PO QID [facility] Last Admin: 08/27/18 09:32 Dose: 1 gm - Labs Labs: 08/26/18 18:18 08/19/18 11:00 PT 14.6 SECONDS (9.7-12.2) H 08/16/18 16:36 INR 1.3 08/16/18 16:36 APTT > 400 SECONDS (21-34) H* 08/16/18 16:36 Assessment and Plan - Assessment and Plan (Free Text) Assessment: FOLLOW UP WITH DR MEEHAN IN HIS OFFICE OR PMD -----CALL FOR APPOINTMENT FOLLOW UP WITH [facility] -----CALL FOR APPOITNEMTN CONTINUE HOME MEDICATION NEW PRESCRIPTION GIVEN PROTONIX 40 MG PO DAILY ZOFRAN 8 MG PO Q8H FOR 5 DAYS ACTIVITY TOLERATED HEMODIALYSIS SCHEDULE CALL PMD OR DR MEEHAN OR GO TO THE EMERGENCY ROOM IF SYMPTOM RETURN OR WORSENING
--- NOTE | 2018-08-27 16:17 | CP.PCM.DIS ---
Provider - Provider Date of Admission: 08/16/18 16:44 Attending physician: Florence Sexton MD Consults: 08/16/18 20:36 Nephrology Consult Routine Comment: Consulting Provider: Jesus Phillips Consulting Physician: Jesus Phillips Reason for Consult: Hemodialysis 08/16/18 23:48 Infectious Disease Consult Routine Comment: Consulting Provider: Benjamín Pinto Consulting Physician: Benjamín Pinto Reason for Consult: sepsis 08/17/18 04:53 Inpatient [facility] Core Measures Referral Routine Comment: Physician Instructions: Reason For Exam: History of CHF Social Work Referral Routine Comment: Protocol Physician Instructions: Reason For Exam: High Ferny Score Hospital Course - Lab Results Lab Results: Micro Results 08/16/18 16:05 Blood Blood Culture - Final NO GROWTH AFTER 5 DAYS 08/16/18 16:05 Blood Gram Stain - Final TEST NOT PERFORMED Most Recent Lab Values WBC 5.2 K/uL (4.8-10.8) 08/26/18 18:18 RBC 3.21 Mil/uL (3.80-5.20) L 08/26/18 18:18 Hgb 10.1 g/dL (11.0-16.0) L 08/26/18 18:18 Hct 31.3 % (34.0-47.0) L 08/26/18 18:18 MCV 97.4 fL (81.0-99.0) 08/26/18 18:18 MCH 31.5 pg (27.0-31.0) H 08/26/18 18:18 MCHC 32.4 g/dL (33.0-37.0) L 08/26/18 18:18 RDW 17.1 % (11.5-14.5) H 08/26/18 18:18 Plt Count 362 K/uL (130-400) D 08/26/18 18:18 MPV 7.4 fL (7.2-11.7) 08/26/18 18:18 Neut % (Auto) 66.4 % (50.0-75.0) 08/26/18 18:18 Lymph % (Auto) 16.8 % (20.0-40.0) L 08/26/18 18:18 [place] % (Auto) 10.0 % (0.0-10.0) 08/26/18 18:18 Eos % (Auto) 6.0 % (0.0-4.0) H 08/26/18 18:18 Baso % (Auto) 0.8 % (0.0-2.0) 08/26/18 18:18 Neut # (Auto) 3.4 K/uL (1.8-7.0) 08/26/18 18:18 Lymph # (Auto) 0.9 K/uL (1.0-4.3) L 08/26/18 18:18 [place] # (Auto) 0.5 K/uL (0.0-0.8) 08/26/18 18:18 Eos # (Auto) 0.3 K/uL (0.0-0.7) 08/26/18 18:18 Baso # (Auto) 0.0 K/uL (0.0-0.2) 08/26/18 18:18 Neutrophils % (Manual) 83 % (50-75) H 08/16/18 16:36 Lymphocytes % (Manual) 7 % (20-40) L 08/16/18 16:36 Monocytes % (Manual) 5 % (0-10) 08/16/18 16:36 Eosinophils % (Manual) 5 % (0-4) H 08/16/18 16:36 Platelet Estimate Normal (NORMAL) 08/16/18 16:36 Hypochromasia (manual) Slight 08/16/18 16:36 Poikilocytosis (manual Slight 08/16/18 16:36 Anisocytosis (manual) Slight 08/16/18 16:36 Microcytosis (manual) Slight 08/16/18 16:36 PT 14.6 SECONDS (9.7-12.2) H 08/16/18 16:36 INR 1.3 08/16/18 16:36 APTT > 400 SECONDS (21-34) H* 08/16/18 16:36 pO2 41 mm/Hg (30-55) 08/16/18 20:38 VBG pH 7.40 (7.32-7.43) 08/16/18 20:38 VBG pCO2 49 mmHg (40-60) 08/16/18 20:38 VBG HCO3 27.9 mmol/L 08/16/18 20:38 VBG Total CO2 31.9 mmol/L (22-28) H 08/16/18 20:38 VBG O2 Sat (Calc) 84.7 % (40-65) H 08/16/18 20:38 VBG Base Excess 4.5 mmol/L (0.0-2.0) H 08/16/18 20:38 VBG Potassium 3.8 mmol/L (3.6-5.2) 08/16/18 20:38 A-a O2 Difference 47.0 mm/Hg 08/16/18 20:38 Sodium 136.0 mmol/l (132-148) 08/16/18 20:38 Chloride 97.0 mmol/L (98-107) L 08/16/18 20:38 Glucose 436 mg/dl (65-105) H* D 08/16/18 20:38 Lactate 1.0 mmol/L (0.7-2.1) 08/16/18 20:38 FiO2 21.0 % 08/16/18 20:38 Crit Value Called To Arsh robins 08/16/18 20:38 Crit Value Called By 08/16/18 20:38 Crit Value Read Back Y 08/16/18 20:38 Blood Gas Notified Time 204408/16/18 20:38 Sodium 132 mmol/L (132-148) 08/19/18 11:00 Potassium 4.3 mmol/L (3.6-5.2) 08/19/18 11:00 Chloride 91 mmol/L (98-107) L 08/19/18 11:00 Carbon Dioxide 26 mmol/L (22-30) 08/19/18 11:00 Anion Gap 19 (10-20) 08/19/18 11:00 BUN 45 mg/dL (7-17) H 08/19/18 11:00 Creatinine 9.4 mg/dL (0.7-1.2) H* D 08/19/18 11:00 Est GFR ( Amer) 6 08/19/18 11:00 Est GFR (Non-Af Amer) 5 08/19/18 11:00 POC Glucose (mg/dL) 214 mg/dL (65-110) H 08/27/18 12:10 Random Glucose 254 mg/dL (65-105) H 08/19/18 11:00 Calcium 6.7 mg/dl (8.6-10.4) L 08/19/18 11:00 Phosphorus 3.2 mg/dL (2.5-4.5) 08/16/18 16:36 Magnesium 2.0 mg/dL (1.6-2.3) 08/16/18 16:36 Total Bilirubin 0.5 mg/dL (0.2-1.3) 08/19/18 11:00 AST 53 U/L (14-36) H 08/19/18 11:00 ALT 39 U/L (9-52) 08/19/18 11:00 Alkaline Phosphatase 115 U/L (38-126) 08/19/18 11:00 Total Protein 7.3 g/dL (6.3-8.3) 08/19/18 11:00 Albumin 4.1 g/dL (3.5-5.0) 08/19/18 11:00 Globulin 3.1 gm/dL (2.2-3.9) 08/19/18 11:00 Albumin/Globulin Ratio 1.3 (1.0-2.1) 08/19/18 11:00 Venous Blood Potassium 3.8 mmol/L (3.6-5.2) 08/16/18 20:38 C. difficile Ag & Toxin Negative (NEGATIVE) 08/21/18 18:50 Hep Bs Antigen Negative (NEGATIVE) 08/21/18 16:59 Influenza Typ A,B (EIA) Pos for influenza a (NEGATIVE) H 08/16/18 16:12 Discharge Exam - Head Exam Head Exam: NORMOCEPHALIC Discharge Plan - Discharge Medications Prescriptions: Pantoprazole [Protonix EC Tab] 40 mg PO DAILY #30 ect Ondansetron [Zofran] 8 mg PO Q8H 5 Days tab - Follow Up Plan Condition: GOOD Disposition: HOME/ ROUTINE Instructions: Dialysis Diet , Heart Failure, Adult (DC), Flu, Adult (DC), Pneumonia, Adult (DC), Ondansetron, Pantoprazole Additional Instructions: FOLLOW UP WITH DR GUZMAN IN HIS OFFICE OR PMD -----CALL FOR APPOINTMENT FOLLOW UP WITH [employer]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
--- NOTE | 2018-08-27 16:17 | CP.PCM.PN ---
Subjective - Date & Time of Evaluation Date of Evaluation: 08/26/18 Time of Evaluation: 15:55 Objective - Vital Signs/Intake and Output Vital Signs (last 24 hours): Temp Pulse Resp BP Pulse Ox 97.7 F 98 H 20 151/100 H 100 08/27/18 08:00 08/27/18 08:00 08/27/18 08:00 08/27/18 08:00 08/27/18 08:00 - Labs Labs: 08/26/18 18:18 08/19/18 11:00 PT 14.6 SECONDS (9.7-12.2) H 08/16/18 16:36 INR 1.3 08/16/18 16:36 APTT > 400 SECONDS (21-34) H* 08/16/18 16:36
== END 2018-08-27 15:44 | disposition home or self-care (01) | DRG 89 ==
LOC: C.ER 14:47 → C.9E 16:44 → C.5S 23:04
PROVIDERS: ADMIT Internal Medicine Nephrology; ATTEND Internal Medicine Nephrology
PROC: 5A1D70Z Performance of Urinary Filtration, Intermittent, Less than 6 Hours Per Day (ICD-10-PCS; principal; 2018-08-17)
DX: J09.X1 Influenza due to identified novel influenza A virus with pneumonia (principal); E11.22 Type 2 diabetes mellitus with diabetic chronic kidney disease; I13.2 Hypertensive heart and chronic kidney disease with heart failure and with stage 5 chronic kidney disease, or end stage renal disease; I50.9 Heart failure, unspecified; N18.6 End stage renal disease; E11.43 Type 2 diabetes mellitus with diabetic autonomic (poly)neuropathy; D63.1 Anemia in chronic kidney disease; E78.00 Pure hypercholesterolemia, unspecified; G47.30 Sleep apnea, unspecified; K31.84 Gastroparesis; Z95.5 Presence of coronary angioplasty implant and graft; J45.909 Unspecified asthma, uncomplicated; Z99.2 Dependence on renal dialysis

== ENCOUNTER 2018-09-18 08:53 | Observation (INO) | payer MEDICAID ==
[2018-09-18 08:54] VITALS: BMI 27.3
[2018-09-18 10:28] LABS: BASO # 0.1 K/uL (0.0-0.2); BASO % 1.5 % (0.0-2.0); EOS # 0.5 K/uL (0.0-0.7); EOS % 10.7 % (0.0-4.0); HEMOGLOBIN 9.2 g/dL (11.0-16.0); LYMPH # 1.3 K/uL (1.0-4.3); MEAN CELL VOLUME 97.4 fL (81.0-99.0); MEAN CORPUSCULAR HEMOGLOBIN 32.1 pg (27.0-31.0); MEAN CORPUSCULAR HGB CONC 32.9 g/dL (33.0-37.0); MEAN PLATELET VOLUME 7.9 fL (7.2-11.7); MONO # 0.5 K/uL (0.0-0.8); MONO % 8.8 % (0.0-10.0); NEUT # 2.7 K/uL (1.8-7.0); RBC 2.86 Mil/uL (3.80-5.20); RED CELL DISTRIBUTION WIDTH 17.7 % (11.5-14.5); WHITE BLOOD COUNT 5.1 K/uL (4.8-10.8)
[2018-09-18 10:36] LABS: INR 1.1; PROTHROMBIN TIME 12.1 SECONDS (9.7-12.2)
--- NOTE | 2018-09-18 10:41 | CP.PCM.CON ---
History of Present Illness - History of Present Illness History of Present Illness: Vascular Surgery Dr. Alicia 32 y/o F w/ extensive PMHx was BIBA for uncontrolled bleeding from L AVF. Pt states she had HD on Sunday as per her normal schedule, w/o complication. Pt reports washing her AVF in the shower this morning when it started bleeding uncontrollably in the shower. Pt's sister is medical aid and attempted to apply pressure dressing but could not get the bleeding to stop, which is when they called EMS. Pt reports occasional bleeding from AVF needle sites but never this severe. In the ED, pt c/o hand numbness as well as nausea. PMHx: CHF, HTN, HLD, ESRD on HD, Sickle cell, Asthma, DWIGHT, DM, DVT, gastritis, opioid dependence Meds: reviewed in chart ALL: toradol, latex, morphine, tramadol PSHx: L AVF, cholecystectomy, multiple permacaths, portacaths, SHx: denies tobacco, EtOH, drug use FHx: noncontributory Review of Systems - Review of Systems All systems: reviewed and no additional remarkable complaints except (see HPI) Past Patient History - Infectious Disease Hx of Infectious Diseases: None - Tetanus Immunizations Tetanus Immunization: Unknown - Past Medical History & Family History Past Medical History?: Yes - Past Social History Smoking Status: Never Smoked - CARDIAC Hx Cardiac Disorders: Yes Hx Congestive Heart Failure: Yes Hx Hypercholesterolemia: Yes Hx Hypertension: Yes Hx Peripheral Edema: Yes - PULMONARY Hx Respiratory Disorders: Yes Hx Asthma: Yes Hx Bronchitis: Yes Hx Pneumonia: Yes Hx Sleep Apnea: Yes - NEUROLOGICAL Hx Seizures: Yes - HEENT Hx HEENT Problems: Yes Hx Cataracts: Yes (BOTH EYES) Hx Glaucoma: Yes (BOTH EYES) - RENAL Hx Chronic Kidney Disease: Yes Hx Dialysis: Yes Type of Dialysis Access: LEFT UPPER ARM AV FISTULA Date of Last Dialysis Treatment: 09/16/18 Hx Kidney Stones: Yes - ENDOCRINE/METABOLIC Hx Endocrine Disorders: Yes Hx Diabetes Mellitus Type 1: Yes Hx Hyperthyroidism: Yes Hx Hypothyroidism: Yes - HEMATOLOGICAL/ONCOLOGICAL Hx Anemia: Yes - INTEGUMENTARY Hx Dermatological Problems: Yes Other/Comment: DRY ITCHY SKIN ;multiple/generalized dark spots on skin. left toe blister - MUSCULOSKELETAL/RHEUMATOLOGICAL Hx Falls: No - GASTROINTESTINAL Hx Gall Bladder Disease: Yes Hx Gastritis: Yes Hx Pancreatitis: Yes - PSYCHIATRIC Hx Anxiety: Yes Hx Substance Use: No - SURGICAL HISTORY Hx Surgeries: Yes Hx Cholecystectomy: Yes Hx Coronary Stent: Yes Hx Vascular Access Device: Yes Other/Comment: 2 EXPLORATORY STOMACH SURGERIES. 2 SURGERIES TO RIGHT LEG FOR ABSCESS REMOVAL - ANESTHESIA Hx Anesthesia: Yes Hx Anesthesia Reactions: No Hx Malignant Hyperthermia: No Meds Allergies/Adverse Reactions: Allergies Allergy/AdvReac Type Severity Reaction Status Date / Time ketorolac tromethamine Allergy RASH Verified 09/18/18 09:12 [From Toradol] latex Allergy RASH Verified 09/18/18 09:12 morphine Allergy RASH Verified 09/18/18 09:12 tramadol Allergy RASH Verified 09/18/18 09:12 Physical Exam - Constitutional Appears: Non-toxic, No Acute Distress - Head Exam Head Exam: NORMAL INSPECTION - Eye Exam Eye Exam: Normal appearance - ENT Exam ENT Exam: Mucous Membranes Moist - Respiratory Exam Respiratory Exam: NORMAL BREATHING PATTERN. absent: Accessory Muscle Use, Respiratory Distress - Cardiovascular Exam Cardiovascular Exam: REGULAR RHYTHM. absent: Bradycardia, Tachycardia - GI/Abdominal Exam GI & Abdominal Exam: Soft. absent: Distended, Tenderness - Extremities Exam Additional comments: LUE w/ pressure dressing in place. L hand cold w/ no palpable pulse. extensive bleeding from unclear source - Neurological Exam Neurological exam: Alert, Oriented x3 - Psychiatric Exam Psychiatric exam: Normal Affect, Normal Mood - Skin Skin Exam: Dry, Normal Color, Warm Results - Vital Signs Recent Vital Signs: Last Vital Signs Temp 97.8 F 09/18/18 09:07 Pulse 100 H 09/18/18 09:30 Resp 13 09/18/18 09:30 BP 128/76 09/18/18 09:30 Pulse Ox 100 09/18/18 09:30 - Labs Result Diagrams: 09/18/18 10:07 09/18/18 10:07 Labs: Laboratory Results - last 24 hr 09/18/18 10:07 WBC 5.1 RBC 2.86 L Hgb 9.2 L Hct 27.8 L MCV 97.4 MCH 32.1 H MCHC 32.9 L RDW 17.7 H Plt Count 223 D MPV 7.9 Neut % (Auto) 53.0 Lymph % (Auto) 26.0 [place] % (Auto) 8.8 Eos % (Auto) 10.7 H Baso % (Auto) 1.5 Neut # (Auto) 2.7 Lymph # (Auto) 1.3 [place] # (Auto) 0.5 Eos # (Auto) 0.5 Baso # (Auto) 0.1 Assessment & Plan - Assessment and Plan (Free Text) Assessment: 32 y/o F w/ bleeding L AVF Plan: -maintain pressure dressing - f/u labs - NPO - plan for OR this morning/afternoon for exam under anesthesia, AVF revision/ligation w/ possible permacath placement - type and cross for 2 units pRBC - pt will need HD today or tomorrow pending lab results Pt discussed w/ Dr. Ravin Riggs DO PGY3
[2018-09-18] MEDS ORDERED: HEPARIN-NS 5,000 UNITS/500 ML 5,000 UNIT/500 ML BAG IV ONE (11:05)
[2018-09-18] MEDS ORDERED: ceFAZolin 1 gm in NS 2 GM/200 ML BAG IVPB ONE (11:05)
--- NOTE | 2018-09-18 11:20 | C.PDOC ---
History Of Present Illness 32 y/o female, w/PMhx of ESRD, presents to the ER complaining of bleeding from left AV fistula. Patient states that she noticed scab and bleeding from the fistula while she was in the shower. Patient reports that she applied a towel over the area. She is complaining of pain in the left arm. She notes that she is currently undergoing hemodialysis. Her last session was on Sunday 2 days ago and she is due for her next appointment today. Denies having fever and chills. Chief Complaint (Nursing): Vascular Access Device Problem History Per: Patient History/Exam Limitations: no limitations Onset/Duration Of Symptoms: Days Current Symptoms Are (Timing): Still Present Severity: Moderate Past Medical History Reviewed: Historical Data, Nursing Documentation, Vital Signs Vital Signs: Last Vital Signs Temp 97.8 F 09/18/18 09:07 Pulse 100 H 09/18/18 09:30 Resp 13 09/18/18 09:30 BP 126/83 09/18/18 10:57 Pulse Ox 100 09/18/18 09:30 - Medical History PMH: Anemia, Anxiety, Asthma, Bronchitis, CHF, Diabetes, Fractures (LEFT FOOT), Gastritis, Gastrointestinal Ulcer (gastroparesis), Gall Bladder Disease, Hepatitis, HTN, Hypercholesterolemia, Hyperthyroidism, Hypothyroidism, Kidney Stones, Pancreatitis, Peripheral Edema, Pneumonia, End Stage Renal Disease, Chronic Kidney Disease, Seizures, Sleep Apnea, Chronic Pain Surgical History: Cholecystectomy, Coronary Stent - [facility] Procedures (08/16/18) ASSISTANCE WITH RESPIRATORY VENTILATION, 24-96 HRS, CPAP (11/27/16) CAUTERY TO STOP EPISTAX (03/22/14) CENTRAL VENOUS CATHETER PLACEMENT WITH GUIDANCE (11/06/14) DIALYSIS ARTERIOVENOSTOM (01/10/14) DILATION OF LEFT SUBCLAVIAN VEIN, PERCUTANEOUS APPROACH (09/03/17) DRAINAGE OF RIGHT FOOT SKIN, EXTERNAL APPROACH (07/17/16) DRAINAGE OF RIGHT LOWER ARM SKIN, EXTERNAL APPROACH (05/25/16) ESOPHAGOGASTRODUODENOSCOPY [EGD] W/CLOSED BIOPSY (03/03/14) EXCISION OF LEFT TOE PHALANX, OPEN APPROACH (07/12/17) EXCISION OF STOMACH, ENDO, DIAGN (05/09/16) EXTIRPATE MATTER FROM R LOW ARM SUBCU/FASCIA, PERC (05/25/16) EXTRACTION OF RIGHT FOOT SKIN, EXTERNAL APPROACH (05/25/16) EXTRACTION OF TOE NAIL, EXTERNAL APPROACH (07/12/17) FLEXIBLE SIGMOIDOSCOPY (10/26/14) FLUOROSCOPY OF LEFT SUBCLAVIAN VEIN USING OTHER CONTRAST (09/03/17) FLUOROSCOPY OF R JUGULAR VEIN USING L OSM CONTRAST, GUIDANCE (12/13/15) FLUOROSCOPY OF RIGHT SUBCLAVIAN VEIN, GUIDANCE (08/07/16) HEMODIALYSIS (04/05/15) INJECT INSULIN (12/23/12) INJECT/INFUSE ELECTROLYT (12/23/12) INJECT/INFUSE NEC (01/17/15) INSERT INFUSION DEV IN R INT JUGULAR VEIN, PERC (02/23/16) INSERT VAD RESERVOIR IN CHEST SUBCU/FASCIA, OPEN (08/19/17) INSERTION OF INFUSION DEV INTO R BASILIC VEIN, PERC APPROACH (04/18/16) INSERTION OF INFUSION DEV INTO R BRACH VEIN, PERC APPROACH (02/19/17) INSERTION OF INFUSION DEV INTO R SUBCLAV VEIN, PERC APPROACH (08/29/16) INSERTION OF INFUSION DEV INTO SUP VENA CAVA, PERC APPROACH (08/19/17) INSERTION OF INFUSION DEVICE INTO R ATRIUM, PERC APPROACH (12/13/15) INSERTION OF VAD INTO CHEST SUBCU/FASCIA, OPEN APPROACH (12/13/15) MEASURE OF CARDIAC SAMPL & PRESSURE, L HEART, PERC APPROACH (10/09/16) OTHER ENDOSCOPY OF SM INTEST (08/25/14) PACKED CELL TRANSFUSION (10/26/14) PERFORMANCE OF URINARY FILTRATION, MULTIPLE (03/19/17) PERFORMANCE OF URINARY FILTRATION, SINGLE (11/27/16) PLAIN RADIOGRAPHY OF LEFT HEART USING OTHER CONTRAST (10/09/16) PLAIN RADIOGRAPHY OF MULT COR ART USING OTH CONTRAST (10/09/16) PLICATION OF VENA CAVA (03/22/14) POST NASAL PAC FOR EPIST (03/22/14) REMOVAL OF VAD FROM TRUNK SUBCU/FASCIA, OPEN APPROACH (02/23/16) RESECTION OF TOE NAIL, EXTERNAL APPROACH (08/19/17) [facility]IN [facility] DIALYS[facility] SHUNT (03/03/14) THERAPEUTIC ERYTHROCYTAPHERESIS (10/26/14) TRANSFUSE NONAUT RED BLOOD CELLS IN PERIPH VEIN, PERC (02/19/17) ULTRASONOGRAPHY OF RIGHT AND LEFT HEART, TRANSESOPHAGEAL (02/19/17) ULTRASONOGRAPHY OF RIGHT SUBCLAVIAN VEIN, GUIDANCE (08/29/16) ULTRASONOGRAPHY OF RIGHT UPPER EXTREMITY VEINS, GUIDANCE (02/19/17) VACCINATION NEC (10/26/14) VENOUS CATHETERIZATION FOR RENAL DIALYSIS (03/03/14) Family History: States: No Known Family Hx - Social History Hx Tobacco Use: No Hx Alcohol Use: No Hx Substance Use: No - Immunization History Hx Tetanus Toxoid Vaccination: No Hx Influenza Vaccination: Yes Hx Pneumococcal Vaccination: Yes Review Of Systems Except As Marked, All Systems Reviewed And Found Negative. Constitutional: Negative for: Fever, Chills Musculoskeletal: Positive for: Other (left arm pain, bleeding from fistula) Physical Exam - Physical Exam Appears: Other (uncomfortable) Skin: Normal Color, Warm, Dry Head: Atraumatic, Normacephalic Eye(s): bilateral: Normal Inspection Nose: Normal Oral Mucosa: Moist Neck: Supple Chest: Symmetrical Cardiovascular: Rhythm Regular Respiratory: Normal Breath Sounds, No Rales, No Rhonchi, No Wheezing Gastrointestinal/Abdominal: Normal Exam, Soft, No Tenderness, No Guarding, No Rebound Extremity: Normal ROM, Other (profuse bleeding from AV fistula in left arm) Neurological/Psych: Oriented x3, Normal Speech ED Course And Treatment - Laboratory Results Result Diagrams: 09/18/18 10:07 09/18/18 10:07 Lab Results: PT 12.1 SECONDS (9.7-12.2) 09/18/18 10:07 INR 1.1 09/18/18 10:07 APTT 52 SECONDS (21-34) H 09/18/18 10:07 O2 Sat by Pulse Oximetry: 100 (RA) Pulse Ox Interpretation: Normal Progress Note: Labs ordered. Patient treated with Fentanyl IV. Disposition - Disposition Disposition: HOSPITALIZED - Scribe Statement The provider has reviewed the documentation as recorded by the [place] Joe White Provider Attestation: All medical record entries made by the Scribe were at my direction and personally dictated by me. I have reviewed the chart and agree that the record accurately reflects my personal performance of the history, physical exam, medical decision making, and the department course for this patient. I have also personally directed, reviewed, and agree with the discharge instructions and disposition.
[2018-09-18] MEDS ORDERED: Propofol 10 mg/ml Inj (20 ML) ONE (12:23)
[2018-09-18] MEDS ORDERED: Phenylephrine 10 mg/ml Inj ONE (12:48)
[2018-09-18] MEDS ORDERED: Iohexol 240 200 ML ONE (12:49)
--- NOTE | 2018-09-18 13:41 | PCM.SURG1 ---
Surgeon's Initial Post Op Note - Surgeon's Notes Surgeon: Dr. Alicia Sourcing Assistant: Dr. Riggs PGY3 Type of Anesthesia: General LMA Pre-Operative Diagnosis: bleeding Left AVF; ESRD on HD Operative Findings: bleeding AVF; distal pseudoaneurysm; subclavian vein stenosis Post-Operative Diagnosis: same Operation Performed: Left AV fistulogram Specimen/Specimens Removed: none Estimated Blood Loss: EBL {In ML}: 5 Blood Products Given: N/A Drains Used: No Drains Post-Op Condition: Good Date of Surgery/Procedure: 09/18/18 Time of Surgery/Procedure: 13:42
[2018-09-18] MEDS: HYDROmorphone 0.5 mg/0.5 ml ISec IVP PRN ×2 (13:42→14:28)
[2018-09-18] MEDS ORDERED: Oxycodone/Acetaminophen 5/325 mg Tab PO PRN (13:51)
[2018-09-18] MEDS: (Novolin R) Insulin Human Regular 100 units/ml vial SC SCH ×2 (14:40→22:32)
[2018-09-18] MEDS ORDERED: DiphenhydrAMINE 50 mg/ml Inj IVP STA (14:54)
[2018-09-18] MEDS: HYDROmorphone 1 mg/ml ISec IM PRN (17:55)
[2018-09-18] MEDS: Sucralfate 1 gm/10 ml Oral Susp UD PO SCH ×2 (18:00→22:33)
[2018-09-18] MEDS ORDERED: Sodium Chloride 0.9% 500 ML IV ONE (18:30)
[2018-09-18] MEDS ORDERED: DiphenhydrAMINE 50 mg/ml Inj IVP PRN (18:56)
--- NOTE | 2018-09-18 18:59 | CP.PCM.HP ---
History of Present Illness - History of Present Illness History of Present Illness: 32-year-old female patient with past medical history CHF, HTN, HLD, ESRD on HD, sickle cell, DM was BIBA for uncontrolled severe bleeding from L AVF. patient states she had HD as per normal schedule, without any complication. as per pat ient she was washing her AVF during shower, which started bleeding in the shower. Patient sister attempted to apply pressure dressing but failed and called EMS. Patient reports occasional bleeding from aVF needle sites no history of fall or trauma Present on Admission - Present on Admission Any Indicators Present on Admission: No Past Patient History - Infectious Disease Hx of Infectious Diseases: None - Tetanus Immunizations Tetanus Immunization: Unknown - Past Medical History & Family History Past Medical History?: Yes - Past Social History Smoking Status: Never Smoked - CARDIAC Hx Congestive Heart Failure: Yes Hx Hypercholesterolemia: Yes Hx Hypertension: Yes Hx Peripheral Edema: Yes - PULMONARY Hx Asthma: Yes Hx Bronchitis: Yes Hx Pneumonia: Yes Hx Sleep Apnea: Yes - NEUROLOGICAL Hx Seizures: Yes - HEENT Hx HEENT Problems: Yes Hx Cataracts: Yes (BOTH EYES) Hx Glaucoma: Yes (BOTH EYES) - RENAL Hx Chronic Kidney Disease: Yes Hx Kidney Stones: Yes - ENDOCRINE/METABOLIC Hx Hyperthyroidism: Yes Hx Hypothyroidism: Yes - HEMATOLOGICAL/ONCOLOGICAL Hx Anemia: Yes - INTEGUMENTARY Hx Dermatological Problems: Yes Other/Comment: DRY ITCHY SKIN ;multiple/generalized dark spots on skin. left toe blister - MUSCULOSKELETAL/RHEUMATOLOGICAL Hx Fractures: Yes (LEFT FOOT) - GASTROINTESTINAL Hx Gall Bladder Disease: Yes Hx Gastritis: Yes Hx Pancreatitis: Yes - PSYCHIATRIC Hx Anxiety: Yes Hx Substance Use: No - SURGICAL HISTORY Hx Cholecystectomy: Yes Hx Coronary Stent: Yes - ANESTHESIA Hx Anesthesia: Yes Hx Anesthesia Reactions: No Hx Malignant Hyperthermia: No Meds Allergies/Adverse Reactions: Allergies Allergy/AdvReac Type Severity Reaction Status Date / Time ketorolac tromethamine Allergy RASH Verified 09/18/18 09:12 [From Toradol] latex Allergy RASH Verified 09/18/18 09:12 morphine Allergy RASH Verified 09/18/18 09:12 tramadol Allergy RASH Verified 09/18/18 09:12 hydromorphone AdvReac ITCHING Verified 09/19/18 08:26 Results - Vital Signs Recent Vital Signs: Last Vital Signs Temp 98 F 09/18/18 18:52 Pulse 97 H 09/18/18 18:52 Resp 20 09/18/18 18:52 BP 154/80 H 09/18/18 18:52 Pulse Ox 99 09/18/18 18:52 - Labs Result Diagrams: 09/18/18 10:07 09/18/18 10:07 Labs: Laboratory Results - last 24 hr 09/18/18 09/18/18 09/18/18 10:07 10:07 10:07 WBC 5.1 RBC 2.86 L Hgb 9.2 L Hct 27.8 L MCV 97.4 MCH 32.1 H MCHC 32.9 L RDW 17.7 H Plt Count 223 D MPV 7.9 Neut % (Auto) 53.0 Lymph % (Auto) 26.0 [place] % (Auto) 8.8 Eos % (Auto) 10.7 H Baso % (Auto) 1.5 Neut # (Auto) 2.7 Lymph # (Auto) 1.3 [place] # (Auto) 0.5 Eos # (Auto) 0.5 Baso # (Auto) 0.1 PT 12.1 INR 1.1 APTT 52 H Sodium 134 Potassium 5.0 Chloride 96 L Carbon Dioxide 24 Anion Gap 19 BUN 69 H Creatinine 7.1 H Est GFR ( Amer) 8 Est GFR (Non-Af Amer) 7 POC Glucose (mg/dL) Random Glucose 99 D Calcium 8.0 L Phosphorus 6.1 H Magnesium 2.4 H Blood Type Antibody Screen 09/18/18 09/18/18 09/18/18 10:07 11:33 16:22 WBC RBC Hgb Hct MCV MCH MCHC RDW Plt Count MPV Neut % (Auto) Lymph % (Auto) [place] % (Auto) Eos % (Auto) Baso % (Auto) Neut # (Auto) Lymph # (Auto) [place] # (Auto) Eos # (Auto) Baso # (Auto) PT INR APTT Sodium Potassium Chloride Carbon Dioxide Anion Gap BUN Creatinine Est GFR ( Amer) Est GFR (Non-Af Amer) POC Glucose (mg/dL) 190 H 208 H Random Glucose Calcium Phosphorus Magnesium Blood Type A POSITIVE Antibody Screen Negative Assessment & Plan (1) Abscess of left groin Status: Acute (2) Accelerated essential hypertension Status: Acute (3) Acute hyperkalemia Status: Acute (4) Acute renal failure Status: Acute (5) Adjustment disorder with anxiety Status: Acute Priority: Low (6) Amenorrhea Status: Acute (7) Anemia Status: Acute (8) Bacteremia Status: Acute (9) Catheter-related bloodstream infection (CRBSI) Status: Acute Priority: High (10) Cellulitis Status: Acute (11) Cellulitis and abscess of foot Status: Acute (12) Chest pain Status: Acute (13) Chronic congestive heart failure Status: Acute (14) Chronic intractable pain Status: Acute (15) Chronic pain Status: Acute (16) Colicky periumbilical abdominal pain Status: Acute (17) Congestive heart failure Status: Acute (18) Constipation Status: Acute (19) DM w/o complication type I Status: Acute (20) DVT (deep venous thrombosis) Status: Acute (21) Dehydration fever Status: Acute (22) Diabetic gastroparesis Status: Acute (23) Dyspnea Status: Acute (24) ESRD (end stage renal disease) on dialysis Status: Acute (25) Epistaxis Status: Acute (26) Esophagitis Status: Acute (27) Fever Status: Acute (28) Fluid overload Status: Acute (29) Foot ulcer Status: Acute (30) Gastric pain Status: Acute (31) 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 Status: Acute (32) Herpes Status: Acute (33) History of diabetic gastroparesis Status: Acute (34) Hyperglycemia Status: Acute (35) Hyperglycemia without ketosis Status: Acute (36) Hyperkalemia Status: Acute (37) Hypertension, malignant Status: Acute (38) Hypertensive crisis without congestive heart failure Status: Acute (39) Hypertensive urgency Status: Acute (40) Hypoglycemia Status: Acute (41) Infection due to central venous catheter exit site Status: Acute (42) Infection, dialysis vascular access Status: Acute (43) Influenza Status: Acute (44) Intractable pain Status: Acute (45) Intractable vomiting Status: Acute (46) Intractable vomiting Status: Acute (47) Leg swelling Status: Acute (48) Leukocytosis Status: Acute (49) Leukocytosis Status: Acute (50) Medical assessment Status: Acute (51) Multifocal pneumonia Status: Acute (52) Narcotic addiction Status: Acute (53) Nausea Status: Acute (54) Opioid dependence Status: Acute (55) Other complication of arteriovenous dialysis fistula Status: Acute (56) Positive blood culture Status: Acute (57) Prophylactic measure Status: Acute (58) Pulmonary edema Status: Acute (59) Pulmonary edema Status: Acute (60) Renal azotemia Status: Acute (61) Renal failure Status: Acute (62) Renal function tests abnormal Status: Acute (63) Respiratory distress Status: Acute (64) Sensorineural deafness, unilateral Status: Acute (65) Sepsis Status: Acute (66) Shortness of breath Status: Acute (67) Sternal osteomyelitis Status: Acute (68) Tearfulness Status: Acute (69) Threatening to others Status: Acute (70) Trigger finger, left middle finger Status: Acute (71) URI (upper respiratory infection) Status: Acute (72) UTI (lower urinary tract infection) Status: Acute (73) UTI (urinary tract infection) Status: Acute (74) Uncontrolled diabetes mellitus Status: Acute (75) Uncontrolled hypertension Status: Acute (76) Urinary tract infection symptoms Status: Acute (77) Vaginal discharge Status: Acute (78) Viral bronchitis Status: Acute (79) Vomiting Status: Acute (80) Vomiting bile Status: Acute (81) Vulvovaginal candidiasis Status: Acute (82) Abdominal discomfort, generalized Status: Chronic (83) Abdominal pain Status: Chronic (84) Abdominal pain Status: Chronic (85) Abdominal pain in female Status: Chronic (86) Anemia Status: Chronic (87) Anxiety Status: Chronic (88) CHF (congestive heart failure) Status: Chronic (89) Chronic abdominal pain Status: Chronic (90) Chronic pruritus Status: Chronic (91) Chronic, continuous use of opioids Status: Chronic (92) Constipation Status: Chronic (93) Dependence on renal dialysis Status: Chronic (94) Dependency on pain medication Status: Chronic (95) Diabetes Status: Chronic (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, managed as type 2 Status: Chronic (97) Drug-seeking behavior Status: Chronic (98) End stage renal disease Status: Chronic (99) End stage renal disease on dialysis Status: Chronic (100) Gastroparesis Status: Chronic (101) Hemodialysis patient Status: Chronic (102) History of osteomyelitis Status: Chronic (103) Hypertension Status: Chronic (104) Hypertension associated with diabetes Status: Chronic (105) Intractable abdominal pain Status: Chronic (106) Intractable nausea and vomiting Status: Chronic (107) Pain Status: Chronic (108) Skin lesions, generalized Status: Chronic (109) Type 1 diabetes Status: Chronic - Assessment and Plan (Free Text) Plan: No anticoagulations No heparin No Lovenox Continue home medication reconciliation Renal diet Status post vascular surgery Bleeding stopped Hemodialysis scheduled Nephrology consultations Medicine reviewed
[2018-09-18] MEDS: Sodium Chloride 0.9% 1,000 ML IV SCH (19:03)
--- NOTE | 2018-09-18 21:56 | OP ---
PROCEDURE DATE: 09/18/2018 PREOPERATIVE DIAGNOSIS: Bleeding AV fistula, left arm. PROCEDURES CARRIED OUT: 1. Revision of AV fistula with control of bleeding. 2. Fistulogram. SURGEON: Kevin Alicia Jr., MD COMMISSARY MANAGER: Danielle Riggs DO ANESTHESIOLOGIST: Dr. España. 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 Today, she has noted bleeding but this is not from one of the aneurysmal portions but from an intermediate portion where there was a small scab which she picked away but this was not an aneurysmal site. She had profuse bleeding which could not be evaluated or controlled in the emergency room and she was taken to the operating room and given general anesthesia and this was explored. On exploration, there was a small 3 mm hole. This was controlled with the use of two Hagerman-Shine sutures which controlled the bleeding immediately and seemed to approximate good skin to good skin. After this had been done, we then took a fistulogram, showing that there was no evidence of nikhil-anastomotic stenosis on the fistulogram and that more cephalad there was a high-grade stenosis of approximately 80% in the innominate vein, going from left to right on the left side. This was not approached given the emergency nature of the situation, however, it was confirmed. In addition, there was approximately 30% stenosis just proximal to the area that was sutured but this was not the area sutured; this was marked with a clamp. DESCRIPTION OF PROCEDURE: The patient was given general anesthesia. The dressings were removed. Sutures were applied in the area that had been bleeding. We then punctured with a micropuncture device adjacent to the arterial anastomosis and carried out the above-mentioned fistulogram with the above mentioned findings and then reflux damage to the hand again showing no anastomotic stenosis and we terminated the procedure. Blood loss for the procedure itself was less than 50 mL. OPERATION CARRIED OUT: Revision of AV fistula and fistulogram, left arm. Kevin Alicia Jr., MD
[2018-09-18] MEDS ORDERED: Vitamins A & D Oint UD Foilpak TOP ONE (22:20)
[2018-09-18] MEDS: (Lantus) Insulin Glargine, Recombinant SC SCH (22:32)
--- NOTE | 2018-09-19 05:12 | CP.PCM.CON ---
History of Present Illness - History of Present Illness History of Present Illness: REASONS FOR CONSULT : ESRD ON HD M W F AND SAT BLEEDING FROM ANEURYSMAL AVF ELECTROLYTES ABNORMALITIES .. INCLUDING HYPERKALEMIA ANEMIA OF CKD .. ALSO OF BLEEDING ALL EMR REVIEWED .. LABS REVIEWED .. PT WAS SEEN AND EXAMINED CAME WITH BLEEDING OF AVF .. TAKEN TO OR FOR THAT BY VASCULAR SURGERY 32 y/o F w/ extensive PMHx was BIBA for uncontrolled bleeding from L AVF. Pt states she had HD on Sunday as per her normal schedule, w/o complication. Pt reports washing her AVF in the shower this morning when it started bleeding uncontrollably in the shower. Pt's sister is medical aid and attempted to apply pressure dressing but could not get the bleeding to stop, which is when they called EMS. Pt reports occasional bleeding from AVF needle sites but never this severe. In the ED, pt c/o hand numbness as well as nausea. PMHx: CHF, HTN, HLD, ESRD on HD, Sickle cell, Asthma, DWIGHT, DM, DVT, gastritis, opioid dependence Meds: reviewed in chart ALL: toradol, latex, morphine, tramadol PSHx: L AVF, cholecystectomy, multiple permacaths, portacaths, SHx: denies tobacco, EtOH, drug use FHx: noncontributory Past Patient History - Infectious Disease Hx of Infectious Diseases: None - Tetanus Immunizations Tetanus Immunization: Unknown - Past Medical History & Family History Past Medical History?: Yes - Past Social History Smoking Status: Never Smoked - CARDIAC Hx Congestive Heart Failure: Yes Hx Hypercholesterolemia: Yes Hx Hypertension: Yes Hx Peripheral Edema: Yes - PULMONARY Hx Asthma: Yes Hx Bronchitis: Yes Hx Pneumonia: Yes Hx Sleep Apnea: Yes - NEUROLOGICAL Hx Seizures: Yes - HEENT Hx HEENT Problems: Yes Hx Cataracts: Yes (BOTH EYES) Hx Glaucoma: Yes (BOTH EYES) - RENAL Hx Chronic Kidney Disease: Yes Hx Kidney Stones: Yes - ENDOCRINE/METABOLIC Hx Hyperthyroidism: Yes Hx Hypothyroidism: Yes - HEMATOLOGICAL/ONCOLOGICAL Hx Anemia: Yes - INTEGUMENTARY Hx Dermatological Problems: Yes Other/Comment: DRY ITCHY SKIN ;multiple/generalized dark spots on skin. left toe blister - MUSCULOSKELETAL/RHEUMATOLOGICAL Hx Fractures: Yes (LEFT FOOT) - GASTROINTESTINAL Hx Gall Bladder Disease: Yes Hx Gastritis: Yes Hx Pancreatitis: Yes - PSYCHIATRIC Hx Anxiety: Yes Hx Substance Use: No - SURGICAL HISTORY Hx Cholecystectomy: Yes Hx Coronary Stent: Yes - ANESTHESIA Hx Anesthesia: Yes Hx Anesthesia Reactions: No Hx Malignant Hyperthermia: No Meds Allergies/Adverse Reactions: Allergies Allergy/AdvReac Type Severity Reaction Status Date / Time ketorolac tromethamine Allergy RASH Verified 09/18/18 09:12 [From Toradol] latex Allergy RASH Verified 09/18/18 09:12 morphine Allergy RASH Verified 09/18/18 09:12 tramadol Allergy RASH Verified 09/18/18 09:12 - Medications Medications: Current Medications Calcium Acetate (Phoslo) 667 mg PO TID [facility] Last Admin: 09/18/18 18:00 Dose: 667 mg Clonidine HCl (Catapres) 0.3 mg PO BID [facility] Last Admin: 09/18/18 18:00 Dose: 0.3 mg Diphenhydramine HCl (Benadryl) 25 mg PO Q3H PRN PRN Reason: Itching / Pruritus Last Admin: 09/19/18 03:22 Dose: 25 mg Docusate Sodium (Colace) 100 mg PO TID [facility] Last Admin: 09/18/18 18:00 Dose: 100 mg Ergocalciferol (Drisdol 50,000 Intl Units Cap) 1 cap PO QWK [facility] Gabapentin (Neurontin) 300 mg PO BID [facility] Last Admin: 09/18/18 18:00 Dose: 300 mg Hydromorphone HCl (Dilaudid) 1 mg IM Q4H PRN PRN Reason: pain Last Admin: 09/18/18 17:55 Dose: 1 mg Hydromorphone HCl (Dilaudid) 2 mg IVP Q3H PRN PRN Reason: Pain, severe (8-10) Last Admin: 09/19/18 03:22 Dose: 2 mg Sodium Chloride (Sodium Chloride 0.9%) 1,000 mls @ 50 mls/hr IV .Q20H [facility] Last Admin: 09/18/18 19:03 Dose: 50 mls/hr Insulin Glargine (Lantus) 25 unit SC [facility] Last Admin: 09/18/18 22:32 Dose: 25 units Insulin Human Regular (Novolin R) [address] [facility]; Protocol Last Admin: 09/18/18 22:32 Dose: 3 unit Ondansetron HCl (Zofran Tab) 8 mg PO Q8H [facility] Last Admin: 09/18/18 22:32 Dose: 8 mg Pantoprazole Sodium (Protonix Ec Tab) 40 mg PO DAILY [facility] Sucralfate (Carafate Oral Susp) 1 gm PO QID [facility] Last Admin: 09/18/18 22:33 Dose: 1 gm Results - Vital Signs Recent Vital Signs: Last Vital Signs Temp 98.6 F 09/19/18 00:00 Pulse 98 H 09/19/18 00:00 Resp 20 09/19/18 00:00 BP 126/77 09/19/18 00:00 Pulse Ox 98 09/19/18 00:00 - Labs Result Diagrams: 09/18/18 10:07 09/18/18 10:07 Labs: Laboratory Results - last 24 hr 09/18/18 09/18/18 09/18/18 10:07 10:07 10:07 WBC 5.1 RBC 2.86 L Hgb 9.2 L Hct 27.8 L MCV 97.4 MCH 32.1 H MCHC 32.9 L RDW 17.7 H Plt Count 223 D MPV 7.9 Neut % (Auto) 53.0 Lymph % (Auto) 26.0 [place] % (Auto) 8.8 Eos % (Auto) 10.7 H Baso % (Auto) 1.5 Neut # (Auto) 2.7 Lymph # (Auto) 1.3 [place] # (Auto) 0.5 Eos # (Auto) 0.5 Baso # (Auto) 0.1 PT 12.1 INR 1.1 APTT 52 H Sodium 134 Potassium 5.0 Chloride 96 L Carbon Dioxide 24 Anion Gap 19 BUN 69 H Creatinine 7.1 H Est GFR ( Amer) 8 Est GFR (Non-Af Amer) 7 POC Glucose (mg/dL) Random Glucose 99 D Calcium 8.0 L Phosphorus 6.1 H Magnesium 2.4 H Blood Type Antibody Screen 09/18/18 09/18/18 09/18/18 10:07 11:33 16:22 WBC RBC Hgb Hct MCV MCH MCHC RDW Plt Count MPV Neut % (Auto) Lymph % (Auto) [place] % (Auto) Eos % (Auto) Baso % (Auto) Neut # (Auto) Lymph # (Auto) [place] # (Auto) Eos # (Auto) Baso # (Auto) PT INR APTT Sodium Potassium Chloride Carbon Dioxide Anion Gap BUN Creatinine Est GFR ( Amer) Est GFR (Non-Af Amer) POC Glucose (mg/dL) 190 H 208 H Random Glucose Calcium Phosphorus Magnesium Blood Type A POSITIVE Antibody Screen Negative 09/18/18 09/19/18 21:26 02:10 WBC RBC Hgb Hct MCV MCH MCHC RDW Plt Count MPV Neut % (Auto) Lymph % (Auto) [place] % (Auto) Eos % (Auto) Baso % (Auto) Neut # (Auto) Lymph # (Auto) [place] # (Auto) Eos # (Auto) Baso # (Auto) PT INR APTT Sodium Potassium Chloride Carbon Dioxide Anion Gap BUN Creatinine Est GFR ( Amer) Est GFR (Non-Af Amer) POC Glucose (mg/dL) 351 H 265 H Random Glucose Calcium Phosphorus Magnesium Blood Type Antibody Screen Assessment & Plan - Assessment and Plan (Free Text) Assessment: IMP: (1) Abscess of left groin Status: Acute (2) Accelerated essential hypertension Status: Acute (3) Acute hyperkalemia Status: Acute (4) Acute renal failure Status: Acute (5) Adjustment disorder with anxiety Status: Acute Priority: Low (6) Amenorrhea Status: Acute (7) Anemia Status: Acute (8) Bacteremia Status: Acute (9) Catheter-related bloodstream infection (CRBSI) Status: Acute Priority: High (10) Cellulitis Status: Acute (11) Cellulitis and abscess of foot Status: Acute (12) Chest pain Status: Acute (13) Chronic congestive heart failure Status: Acute (14) Chronic intractable pain Status: Acute (15) Chronic pain Status: Acute (16) Colicky periumbilical abdominal pain Status: Acute (17) Congestive heart failure Status: Acute (18) Constipation Status: Acute (19) DM w/o complication type I Status: Acute (20) DVT (deep venous thrombosis) Status: Acute (21) Dehydration fever Status: Acute (22) Diabetic gastroparesis Status: Acute (23) Dyspnea Status: Acute (24) ESRD (end stage renal disease) on dialysis Status: Acute (25) Epistaxis Status: Acute (26) Esophagitis Status: Acute (27) Fever Status: Acute (28) Fluid overload Status: Acute (29) Foot ulcer Status: Acute (30) Gastric pain Status: Acute (31) 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 Status: Acute (32) Herpes Status: Acute (33) History of diabetic gastroparesis Status: Acute (34) Hyperglycemia Status: Acute (35) Hyperglycemia without ketosis Status: Acute (36) Hyperkalemia Status: Acute (37) Hypertension, malignant Status: Acute (38) Hypertensive crisis without congestive heart failure Status: Acute (39) Hypertensive urgency Status: Acute (40) Hypoglycemia Status: Acute (41) Infection due to central venous catheter exit site Status: Acute (42) Infection, dialysis vascular access Status: Acute (43) Influenza Status: Acute (44) Intractable pain Status: Acute (45) Intractable vomiting Status: Acute (46) Intractable vomiting Status: Acute (47) Leg swelling Status: Acute (48) Leukocytosis Status: Acute (49) Leukocytosis Status: Acute (50) Medical assessment Status: Acute (51) Multifocal pneumonia Status: Acute (52) Narcotic addiction Status: Acute (53) Nausea Status: Acute (54) Opioid dependence Status: Acute (55) Other complication of arteriovenous dialysis fistula Status: Acute (56) Positive blood culture Status: Acute (57) Prophylactic measure Status: Acute (58) Pulmonary edema Status: Acute (59) Pulmonary edema Status: Acute (60) Renal azotemia Status: Acute (61) Renal failure Status: Acute (62) Renal function tests abnormal Status: Acute (63) Respiratory distress Status: Acute (64) Sensorineural deafness, unilateral Status: Acute (65) Sepsis Status: Acute (66) Shortness of breath Status: Acute (67) Sternal osteomyelitis Status: Acute (68) Tearfulness Status: Acute (69) Threatening to others Status: Acute (70) Trigger finger, left middle finger Status: Acute (71) URI (upper respiratory infection) Status: Acute (72) UTI (lower urinary tract infection) Status: Acute (73) UTI (urinary tract infection) Status: Acute (74) Uncontrolled diabetes mellitus Status: Acute (75) Uncontrolled hypertension Status: Acute (76) Urinary tract infection symptoms Status: Acute (77) Vaginal discharge Status: Acute (78) Viral bronchitis Status: Acute (79) Vomiting Status: Acute (80) Vomiting bile Status: Acute (81) Vulvovaginal candidiasis Status: Acute (82) Abdominal discomfort, generalized Status: Chronic (83) Abdominal pain Status: Chronic (84) Abdominal pain Status: Chronic (85) Abdominal pain in female Status: Chronic (86) Anemia Status: Chronic (87) Anxiety Status: Chronic (88) CHF (congestive heart failure) Status: Chronic (89) Chronic abdominal pain Status: Chronic (90) Chronic pruritus Status: Chronic (91) Chronic, continuous use of opioids Status: Chronic (92) Constipation Status: Chronic (93) Dependence on renal dialysis Status: Chronic (94) Dependency on pain medication Status: Chronic (95) Diabetes Status: Chronic (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, managed as type 2 Status: Chronic (97) Drug-seeking behavior Status: Chronic (98) End stage renal disease Status: Chronic (99) End stage renal disease on dialysis Status: Chronic (100) Gastroparesis Status: Chronic (101) Hemodialysis patient Status: Chronic (102) History of osteomyelitis Status: Chronic (103) Hypertension Status: Chronic (104) Hypertension associated with diabetes Status: Chronic (105) Intractable abdominal pain Status: Chronic (106) Intractable nausea and vomiting Status: Chronic (107) Pain Status: Chronic (108) Skin lesions, generalized Status: Chronic (109) Type 1 diabetes Status: Chronic P : SASCULAR WORK APPRECIATED WILL C/O HD AN IN PT RENAL AND DIABETIC DIET C/O CURRENT MEDS WILL F/U CLOSELY - Date & Time Date: 09/18/18 Time: 17:00
[2018-09-19] MEDS: (Novolin R) Insulin Human Regular 100 units/ml vial SC SCH ×3 (08:48→21:07)
[2018-09-19] MEDS ORDERED: Ergocalciferol 50,000 Intl Units Cap PO SCH (10:00)
--- NOTE | 2018-09-19 12:24 | CP.PCM.PN ---
Subjective - Date & Time of Evaluation Date of Evaluation: 09/19/18 Time of Evaluation: 06:30 - Subjective Subjective: Vascular Surgery Dr. Alicia Pt seen and examined @bedside. No acute events overnight. pain well controlled w/ meds. pt reports krylex wrap fell off however under dressing intact. Objective - Vital Signs/Intake and Output Vital Signs (last 24 hours): Temp Pulse Resp BP Pulse Ox 97.2 F L 90 20 126/84 98 09/19/18 08:10 09/19/18 08:10 09/19/18 08:10 09/19/18 08:10 09/19/18 08:10 Intake and Output: 09/19/18 09/19/18 06:59 18:59 Intake Total 400 Balance 400 - Medications Medications: Current Medications Calcium Acetate (Phoslo) 667 mg PO TID [facility] Last Admin: 09/18/18 18:00 Dose: 667 mg Clonidine HCl (Catapres) 0.3 mg PO BID [facility] Last Admin: 09/18/18 18:00 Dose: 0.3 mg Diphenhydramine HCl (Benadryl) 25 mg PO Q3H PRN PRN Reason: Itching / Pruritus Last Admin: 09/19/18 11:02 Dose: 25 mg Docusate Sodium (Colace) 100 mg PO TID [facility] Last Admin: 09/18/18 18:00 Dose: 100 mg Epoetin James (Procrit) 10,000 unit IV TTS [facility] Ergocalciferol (Drisdol 50,000 Intl Units Cap) 1 cap PO QWK [facility] Gabapentin (Neurontin) 300 mg PO BID [facility] Last Admin: 09/18/18 18:00 Dose: 300 mg Hydromorphone HCl (Dilaudid) 1 mg IM Q4H PRN PRN Reason: pain Last Admin: 09/18/18 17:55 Dose: 1 mg Hydromorphone HCl (Dilaudid) 2 mg IVP Q3H PRN PRN Reason: Pain, severe (8-10) Last Admin: 09/19/18 10:58 Dose: 2 mg Sodium Chloride (Sodium Chloride 0.9%) 1,000 mls @ 50 mls/hr IV .Q20H [facility] Last Admin: 09/18/18 19:03 Dose: 50 mls/hr Insulin Glargine (Lantus) 25 unit SC HS [facility] Last Admin: 09/18/18 22:32 Dose: 25 units Insulin Human Regular (Novolin R) 0 unit SC ACHS [facility]; Protocol Last Admin: 09/19/18 08:48 Dose: 2 unit Ondansetron HCl (Zofran Tab) 8 mg PO Q8H [facility] Last Admin: 09/18/18 22:32 Dose: 8 mg Pantoprazole Sodium (Protonix Ec Tab) 40 mg PO DAILY [facility] Sucralfate (Carafate Oral Susp) 1 gm PO QID [facility] Last Admin: 09/18/18 22:33 Dose: 1 gm - Labs Labs: 09/18/18 10:07 09/18/18 10:07 PT 12.1 SECONDS (9.7-12.2) 09/18/18 10:07 INR 1.1 09/18/18 10:07 APTT 52 SECONDS (21-34) H 09/18/18 10:07 - Constitutional Appears: Non-toxic, No Acute Distress - Head Exam Head Exam: NORMAL INSPECTION - Eye Exam Eye Exam: Normal appearance - ENT Exam ENT Exam: Mucous Membranes Moist - Respiratory Exam Respiratory Exam: NORMAL BREATHING PATTERN. absent: Accessory Muscle Use, Respiratory Distress - Cardiovascular Exam Cardiovascular Exam: REGULAR RHYTHM. absent: Bradycardia, Tachycardia - GI/Abdominal Exam GI & Abdominal Exam: Soft. absent: Distended, Tenderness - Extremities Exam Additional comments: palpable thrill palpable radial pulse dressing c/d/i - Neurological Exam Neurological Exam: Alert, Awake, Oriented x3 - Psychiatric Exam Psychiatric exam: Normal Affect, Normal Mood - Skin Skin Exam: Dry, Intact, Normal Color, Warm Assessment and Plan - Assessment and Plan (Free Text) Assessment: 32 y/o F w/ bleeding AVF POD#1 s/p repair and fistulogram, found to have central venous stenosis Plan: - cleared for HD today - cont pain management - cleared for discharge from surgery - plan for outpatient angio for central venous stenosis Pt discussed w/ Dr. Ravin Riggs DO PGY3
[2018-09-19] MEDS ORDERED: Epoetin Alfa 10,000 unit/ml Dialysis IV SCH (12:30)
[2018-09-19] MEDS: Sucralfate 1 gm/10 ml Oral Susp UD PO SCH ×4 (12:46→21:23)
[2018-09-19] MEDS: Sodium Chloride 0.9% 1,000 ML IV SCH (12:48)
[2018-09-19] MEDS: Pantoprazole 40 mg EC Tab PO SCH (12:48)
--- NOTE | 2018-09-19 15:10 | RAD ---
PROCEDURE: HISTORY: As above COMPARISON: None TECHNIQUE: Total fluoroscopic time utilized during the procedure: 38.7 seconds ; 7.59 mGy FINDINGS: Submitted cine sequence of images from the current procedure: Presented Please refer to the physician's notes performing the procedure. IMPRESSION: Less than 1 hour fluoroscopic time utilized during performance of the procedure
--- NOTE | 2018-09-19 17:48 | CP.PCM.PN ---
Subjective - Date & Time of Evaluation Date of Evaluation: 09/19/18 Time of Evaluation: 09:30 - Subjective Subjective: clinically same Objective - Vital Signs/Intake and Output Vital Signs (last 24 hours): Temp Pulse Resp BP Pulse Ox 98 F 103 H 16 126/79 98 09/19/18 16:50 09/19/18 16:50 09/19/18 16:50 09/19/18 16:20 09/19/18 16:50 Intake and Output: 09/19/18 09/19/18 06:59 18:59 Intake Total 400 Balance 400 - Medications Medications: Current Medications Calcium Acetate (Phoslo) 667 mg PO TID [facility] Last Admin: 09/19/18 17:00 Dose: Not Given Clonidine HCl (Catapres) 0.3 mg PO BID [facility] Last Admin: 09/19/18 12:46 Dose: Not Given Diphenhydramine HCl (Benadryl) 25 mg PO Q3H PRN PRN Reason: Itching / Pruritus Last Admin: 09/19/18 15:07 Dose: 25 mg Docusate Sodium (Colace) 100 mg PO TID [facility] Last Admin: 09/19/18 16:59 Dose: Not Given Epoetin James (Procrit) 10,000 unit IV TTS [facility] Last Admin: 09/19/18 16:48 Dose: 10,000 unit Ergocalciferol (Drisdol 50,000 Intl Units Cap) 1 cap PO QWK [facility] Last Admin: 09/19/18 12:46 Dose: Not Given Gabapentin (Neurontin) 300 mg PO BID [facility] Last Admin: 09/19/18 12:47 Dose: Not Given Hydromorphone HCl (Dilaudid) 1 mg IM Q4H PRN PRN Reason: pain Last Admin: 09/18/18 17:55 Dose: 1 mg Hydromorphone HCl (Dilaudid) 2 mg IVP Q3H PRN PRN Reason: Pain, severe (8-10) Last Admin: 09/19/18 15:06 Dose: 2 mg Sodium Chloride (Sodium Chloride 0.9%) 1,000 mls @ 50 mls/hr IV .Q20H [facility] Last Admin: 09/19/18 12:48 Dose: Not Given Insulin Glargine (Lantus) 25 unit SC HS [facility] Last Admin: 09/18/18 22:32 Dose: 25 units Insulin Human Regular (Novolin R) 0 unit SC ACHS [facility]; Protocol Last Admin: 09/19/18 17:28 Dose: Not Given Ondansetron HCl (Zofran Tab) 8 mg PO Q8H [facility] Last Admin: 09/19/18 17:00 Dose: Not Given Pantoprazole Sodium (Protonix Ec Tab) 40 mg PO DAILY [facility] Last Admin: 09/19/18 12:48 Dose: Not Given Sucralfate (Carafate Oral Susp) 1 gm PO QID [facility] Last Admin: 09/19/18 16:59 Dose: Not Given - Labs Labs: 09/18/18 10:07 09/18/18 10:07 PT 12.1 SECONDS (9.7-12.2) 09/18/18 10:07 INR 1.1 09/18/18 10:07 APTT 52 SECONDS (21-34) H 09/18/18 10:07 - Constitutional Appears: Well - Head Exam Head Exam: ATRAUMATIC, NORMAL INSPECTION, NORMOCEPHALIC - Eye Exam Eye Exam: EOMI, Normal appearance, PERRL Pupil Exam: NORMAL ACCOMODATION, PERRL - ENT Exam ENT Exam: Mucous Membranes Moist, Normal Exam - Neck Exam Neck Exam: Full ROM, Normal Inspection. absent: Lymphadenopathy - Respiratory Exam Respiratory Exam: Decreased Breath Sounds - Cardiovascular Exam Cardiovascular Exam: REGULAR RHYTHM, +S1, +S2 - GI/Abdominal Exam GI & Abdominal Exam: Soft, Diminished Bowel Sounds - Rectal Exam Rectal Exam: Deferred Assessment and Plan (1) Abscess of left groin Status: Acute (2) Accelerated essential hypertension Status: Acute (3) Acute hyperkalemia Status: Acute (4) Acute renal failure Status: Acute (5) Adjustment disorder with anxiety Status: Acute (6) Amenorrhea Status: Acute (7) Anemia Status: Acute (8) Bacteremia Status: Acute (9) Catheter-related bloodstream infection (CRBSI) Status: Acute (10) Cellulitis Status: Acute (11) Cellulitis and abscess of foot Status: Acute (12) Chest pain Status: Acute (13) Chronic congestive heart failure Status: Acute (14) Chronic intractable pain Status: Acute (15) Chronic pain Status: Acute (16) Colicky periumbilical abdominal pain Status: Acute (17) Congestive heart failure Status: Acute (18) Constipation Status: Acute (19) DM w/o complication type I Status: Acute (20) DVT (deep venous thrombosis) Status: Acute (21) Dehydration fever Status: Acute (22) Diabetic gastroparesis Status: Acute (23) Dyspnea Status: Acute (24) ESRD (end stage renal disease) on dialysis Status: Acute (25) Epistaxis Status: Acute (26) Esophagitis Status: Acute (27) Fever Status: Acute (28) Fluid overload Status: Acute (29) Foot ulcer Status: Acute (30) Gastric pain Status: Acute (31) 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 Status: Acute (32) Herpes Status: Acute (33) History of diabetic gastroparesis Status: Acute (34) Hyperglycemia Status: Acute (35) Hyperglycemia without ketosis Status: Acute (36) Hyperkalemia Status: Acute (37) Hypertension, malignant Status: Acute (38) Hypertensive crisis without congestive heart failure Status: Acute (39) Hypertensive urgency Status: Acute (40) Hypoglycemia Status: Acute (41) Infection due to central venous catheter exit site Status: Acute (42) Infection, dialysis vascular access Status: Acute (43) Influenza Status: Acute (44) Intractable pain Status: Acute (45) Intractable vomiting Status: Acute (46) Intractable vomiting Status: Acute (47) Leg swelling Status: Acute (48) Leukocytosis Status: Acute (49) Leukocytosis Status: Acute (50) Medical assessment Status: Acute (51) Multifocal pneumonia Status: Acute (52) Narcotic addiction Status: Acute (53) Nausea Status: Acute (54) Opioid dependence Status: Acute (55) Other complication of arteriovenous dialysis fistula Status: Acute (56) Positive blood culture Status: Acute (57) Prophylactic measure Status: Acute (58) Pulmonary edema Status: Acute (59) Pulmonary edema Status: Acute (60) Renal azotemia Status: Acute (61) Renal failure Status: Acute (62) Renal function tests abnormal Status: Acute (63) Respiratory distress Status: Acute (64) Sensorineural deafness, unilateral Status: Acute (65) Sepsis Status: Acute (66) Shortness of breath Status: Acute (67) Sternal osteomyelitis Status: Acute (68) Tearfulness Status: Acute (69) Threatening to others Status: Acute (70) Trigger finger, left middle finger Status: Acute (71) URI (upper respiratory infection) Status: Acute (72) UTI (lower urinary tract infection) Status: Acute (73) UTI (urinary tract infection) Status: Acute (74) Uncontrolled diabetes mellitus Status: Acute (75) Uncontrolled hypertension Status: Acute (76) Urinary tract infection symptoms Status: Acute (77) Vaginal discharge Status: Acute (78) Viral bronchitis Status: Acute (79) Vomiting Status: Acute (80) Vomiting bile Status: Acute (81) Vulvovaginal candidiasis Status: Acute (82) Abdominal discomfort, generalized Status: Chronic (83) Abdominal pain Status: Chronic (84) Abdominal pain Status: Chronic (85) Abdominal pain in female Status: Chronic (86) Anemia Status: Chronic (87) Anxiety Status: Chronic (88) CHF (congestive heart failure) Status: Chronic (89) Chronic abdominal pain Status: Chronic (90) Chronic pruritus Status: Chronic (91) Chronic, continuous use of opioids Status: Chronic (92) Constipation Status: Chronic (93) Dependence on renal dialysis Status: Chronic (94) Dependency on pain medication Status: Chronic (95) Diabetes Status: Chronic (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, managed as type 2 Status: Chronic (97) Drug-seeking behavior Status: Chronic (98) End stage renal disease Status: Chronic (99) End stage renal disease on dialysis Status: Chronic (100) Gastroparesis Status: Chronic (101) Hemodialysis patient Status: Chronic (102) History of osteomyelitis Status: Chronic (103) Hypertension Status: Chronic (104) Hypertension associated with diabetes Status: Chronic (105) Intractable abdominal pain Status: Chronic (106) Intractable nausea and vomiting Status: Chronic (107) Pain Status: Chronic (108) Skin lesions, generalized Status: Chronic (109) Type 1 diabetes Status: Chronic
--- NOTE | 2018-09-19 20:24 | CP.PCM.PN ---
Subjective - Date & Time of Evaluation Date of Evaluation: 09/19/18 Time of Evaluation: 15:00 - Subjective Subjective: SEEN ON RENAL F/U SEEN AT DIALYSIS AVF IS BEING USED ON HD FEELS IMPROVED C/O CURRENT CARE THE PLAN IS SHE WILL GET EARLY HD IN AM AND THEN D/C Objective - Vital Signs/Intake and Output Vital Signs (last 24 hours): Temp Pulse Resp BP Pulse Ox 98.3 F 94 H 18 108/71 100 09/19/18 19:11 09/19/18 19:11 09/19/18 19:11 09/19/18 19:11 09/19/18 19:11 - Medications Medications: Current Medications Calcium Acetate (Phoslo) 667 mg PO TID [facility] Last Admin: 09/19/18 17:51 Dose: 667 mg Clonidine HCl (Catapres) 0.3 mg PO BID [facility] Last Admin: 09/19/18 17:50 Dose: 0.3 mg Diphenhydramine HCl (Benadryl) 25 mg PO Q3H PRN PRN Reason: Itching / Pruritus Last Admin: 09/19/18 18:17 Dose: 25 mg Docusate Sodium (Colace) 100 mg PO TID [facility] Last Admin: 09/19/18 17:50 Dose: 100 mg Epoetin James (Procrit) 10,000 unit IV TTS [facility] Last Admin: 09/19/18 16:48 Dose: 10,000 unit Ergocalciferol (Drisdol 50,000 Intl Units Cap) 1 cap PO QWK [facility] Last Admin: 09/19/18 12:46 Dose: Not Given Gabapentin (Neurontin) 300 mg PO BID [facility] Last Admin: 09/19/18 17:51 Dose: 300 mg Hydromorphone HCl (Dilaudid) 1 mg IM Q4H PRN PRN Reason: pain Last Admin: 09/18/18 17:55 Dose: 1 mg Hydromorphone HCl (Dilaudid) 2 mg IVP Q3H PRN PRN Reason: Pain, severe (8-10) Last Admin: 09/19/18 18:17 Dose: 2 mg Sodium Chloride (Sodium Chloride 0.9%) 1,000 mls @ 50 mls/hr IV .Q20H [facility] Last Admin: 09/19/18 12:48 Dose: Not Given Insulin Glargine (Lantus) 25 unit SC [facility] Last Admin: 09/18/18 22:32 Dose: 25 units Insulin Human Regular (Novolin R) 0 unit SC [facility]; Protocol Last Admin: 09/19/18 17:28 Dose: Not Given Ondansetron HCl (Zofran Tab) 8 mg PO Q8H [facility] Last Admin: 09/19/18 17:00 Dose: Not Given Pantoprazole Sodium (Protonix Ec Tab) 40 mg PO DAILY [facility] Last Admin: 09/19/18 12:48 Dose: Not Given Sucralfate (Carafate Oral Susp) 1 gm PO QID [facility] Last Admin: 09/19/18 17:50 Dose: 1 gm - Labs Labs: 09/18/18 10:07 09/18/18 10:07 PT 12.1 SECONDS (9.7-12.2) 09/18/18 10:07 INR 1.1 09/18/18 10:07 APTT 52 SECONDS (21-34) H 09/18/18 10:07
[2018-09-19] MEDS: (Lantus) Insulin Glargine, Recombinant SC SCH (21:39)
[2018-09-20] MEDS: HYDROmorphone 1 mg/ml ISec IM PRN (01:04)
[2018-09-20] MEDS: Sodium Chloride 0.9% 1,000 ML IV SCH (05:30)
[2018-09-20] MEDS: (Novolin R) Insulin Human Regular 100 units/ml vial SC SCH ×3 (08:30→16:10)
[2018-09-20] MEDS: Pantoprazole 40 mg EC Tab PO SCH (09:36)
[2018-09-20] MEDS: Sucralfate 1 gm/10 ml Oral Susp UD PO SCH ×2 (09:36→13:43)
[2018-09-20 12:11] VITALS: O2SAT 100
--- NOTE | 2018-09-20 14:55 | CP.PCM.PN ---
Subjective - Date & Time of Evaluation Date of Evaluation: 09/20/18 Time of Evaluation: 14:55 - Subjective Subjective: PATIENT SEEN AND EXAMINED AT THE BEDSIDE Objective - Vital Signs/Intake and Output Vital Signs (last 24 hours): Temp Pulse Resp BP Pulse Ox 98.2 F 110 H 20 147/87 100 09/20/18 14:05 09/20/18 14:05 09/20/18 14:05 09/20/18 14:05 09/20/18 14:05 Intake and Output: 09/20/18 09/20/18 06:59 18:59 Intake Total 500 Balance 500 - Medications Medications: Current Medications Calcium Acetate (Phoslo) 667 mg PO TID [facility] Last Admin: 09/20/18 13:44 Dose: Not Given Clonidine HCl (Catapres) 0.3 mg PO BID [facility] Last Admin: 09/20/18 09:36 Dose: Not Given Diphenhydramine HCl (Benadryl) 25 mg PO Q3H PRN PRN Reason: Itching / Pruritus Last Admin: 09/19/18 21:22 Dose: 25 mg Diphenhydramine HCl (Benadryl) 50 mg PO Q3 PRN PRN Reason: Itching / Pruritus Last Admin: 09/20/18 14:10 Dose: 50 mg Docusate Sodium (Colace) 100 mg PO TID [facility] Last Admin: 09/20/18 13:43 Dose: Not Given Epoetin James (Procrit) 10,000 unit IV TTS [facility] Last Admin: 09/19/18 16:48 Dose: 10,000 unit Ergocalciferol (Drisdol 50,000 Intl Units Cap) 1 cap PO QWK [facility] Last Admin: 09/19/18 12:46 Dose: Not Given Gabapentin (Neurontin) 300 mg PO BID [facility] Last Admin: 09/20/18 09:36 Dose: Not Given Hydromorphone HCl (Dilaudid) 1 mg IM Q4H PRN PRN Reason: pain Last Admin: 09/20/18 01:04 Dose: 1 mg Hydromorphone HCl (Dilaudid) 2 mg IVP Q3H PRN PRN Reason: Pain, severe (8-10) Last Admin: 09/20/18 14:10 Dose: 2 mg Sodium Chloride (Sodium Chloride 0.9%) 1,000 mls @ 50 mls/hr IV .Q20H [facility] Last Admin: 09/20/18 05:30 Dose: Not Given Insulin Glargine (Lantus) 25 unit SC HS [facility] Last Admin: 09/19/18 21:39 Dose: 25 units Insulin Human Regular (Novolin R) 0 unit SC ACHS [facility]; Protocol Last Admin: 09/20/18 12:30 Dose: Not Given Ondansetron HCl (Zofran Tab) 8 mg PO Q8H [facility] Last Admin: 09/20/18 13:45 Dose: Not Given Pantoprazole Sodium (Protonix Ec Tab) 40 mg PO DAILY [facility] Last Admin: 09/20/18 09:36 Dose: Not Given Sucralfate (Carafate Oral Susp) 1 gm PO QID [facility] Last Admin: 09/20/18 13:43 Dose: Not Given - Labs Labs: 09/18/18 10:07 09/18/18 10:07 PT 12.1 SECONDS (9.7-12.2) 09/18/18 10:07 INR 1.1 09/18/18 10:07 APTT 52 SECONDS (21-34) H 09/18/18 10:07 Assessment and Plan - Assessment and Plan (Free Text) Assessment: FOLLOW UP WITH DR Edilia CARVALHO IN HIS OFFICE -----CALL FOR APPOINTMENT FOLLOW UP WITH [facility] RE[employer]DER CONTINUE YOUR HEMODIALYSIS SCHEDULE CONTINUE HOME MEDICATION [employer]CITIVITY TOLERATED CALL DR Edilia CARVALHO OR GO TO THE EMERGENCY ROOM IF SYMPTOM RETURN OR WORSENING
[2018-09-20 15:28] VITALS: BP 121/69; PULSE 108; RESP 18; TEMP 98.6
== END 2018-09-20 16:52 | disposition home or self-care (01) ==
LOC: C.ER 08:53 → C.9E 11:17 → C.9S 12:39 → C.5S 18:23
PROVIDERS: ADMIT Internal Medicine Nephrology; ATTEND Internal Medicine Nephrology
DX: T82.838A Hemorrhage due to vascular prosthetic devices, implants and grafts, initial encounter (principal); I13.2 Hypertensive heart and chronic kidney disease with heart failure and with stage 5 chronic kidney disease, or end stage renal disease; E11.22 Type 2 diabetes mellitus with diabetic chronic kidney disease; N18.6 End stage renal disease; I50.9 Heart failure, unspecified; Z99.2 Dependence on renal dialysis; D63.1 Anemia in chronic kidney disease; E86.0 Dehydration; N17.9 Acute kidney failure, unspecified; F43.22 Adjustment disorder with anxiety; G47.33 Obstructive sleep apnea (adult) (pediatric); L02.214 Cutaneous abscess of groin; L03.116 Cellulitis of left lower limb; E11.621 Type 2 diabetes mellitus with foot ulcer; L97.529 Non-pressure chronic ulcer of other part of left foot with unspecified severity
CPT/HCPCS: 36832; 36901; 80048; 82948; 83735; 84100; 85025; 85610; 85730; 86850; 86900; 86920; 90970; 96374; 96376; 99285; C1769; G0257; G0378; J0690; J1170; J1200; J1642; J2001; J2370; J2704; J3010; J7030; Q4081

== ENCOUNTER 2018-09-24 20:55 | Inpatient (IN) | payer MEDICAID ==
[2018-09-24 20:55] VITALS: BMI 27.3
--- NOTE | 2018-09-24 21:41 | C.PDOC ---
History Of Present Illness 32 year old female presents to ED with complaint of SOB with swelling of lower extremities. Patient has end stage renal disease and CHF. She also complains of cough with production of clear sputum. Patient states she feels like she has too much fluid. Patient is compliant with medication and attends hemo-dialysis on MWF. Patient's PMD is Dr. Edilia Sexton. She has been to this hospital in the past. Patient denies fever. Time Seen by Provider: 09/24/18 21:04 Chief Complaint (Nursing): Shortness Of Breath History Per: Patient History/Exam Limitations: no limitations Onset/Duration Of Symptoms: Days (2) Current Symptoms Are (Timing): Still Present Associated Symptoms: Productive Cough (clear sputum), Ankle/Leg Swelling, Other (SOB). denies: Fever Past Medical History Reviewed: Historical Data, Nursing Documentation, Vital Signs Vital Signs: Last Vital Signs Temp 98.2 F 09/24/18 20:57 Pulse 121 H 09/24/18 20:57 Resp 26 H 09/24/18 20:57 BP 219/91 H 09/24/18 20:57 Pulse Ox 91 L 09/24/18 20:57 - Medical History PMH: Anemia, Anxiety, Asthma, Bronchitis, CHF, Diabetes, Fractures (LEFT FOOT), Gastritis, Gastrointestinal Ulcer (gastroparesis), Gall Bladder Disease, Hepatitis, HTN, Hypercholesterolemia, Hyperthyroidism, Hypothyroidism, Kidney Stones, Pancreatitis, Peripheral Edema, Pneumonia, End Stage Renal Disease, Chronic Kidney Disease, Seizures, Sleep Apnea, Chronic Pain Surgical History: Cholecystectomy, Coronary Stent - [facility] (08/16/18) ASSISTANCE WITH RESPIRATORY VENTILATION, 24-96 HRS, CPAP (11/27/16) CAUTERY TO STOP EPISTAX (03/22/14) CENTRAL VENOUS CATHETER PLACEMENT WITH GUIDANCE (11/06/14) DIALYSIS ARTERIOVENOSTOM (01/10/14) DILATION OF LEFT SUBCLAVIAN VEIN, PERCUTANEOUS APPROACH (09/03/17) DRAINAGE OF RIGHT FOOT SKIN, EXTERNAL APPROACH (07/17/16) DRAINAGE OF RIGHT LOWER ARM SKIN, EXTERNAL APPROACH (05/25/16) ESOPHAGOGASTRODUODENOSCOPY [EGD] W/CLOSED BIOPSY (03/03/14) EXCISION OF LEFT TOE PHALANX, OPEN APPROACH (07/12/17) EXCISION OF STOMACH, ENDO, DIAGN (05/09/16) EXTIRPATE MATTER FROM R LOW ARM SUBCU/FASCIA, PERC (05/25/16) EXTRACTION OF RIGHT FOOT SKIN, EXTERNAL APPROACH (05/25/16) EXTRACTION OF TOE NAIL, EXTERNAL APPROACH (07/12/17) FLEXIBLE SIGMOIDOSCOPY (10/26/14) FLUOROSCOPY OF LEFT SUBCLAVIAN VEIN USING OTHER CONTRAST (09/03/17) FLUOROSCOPY OF R JUGULAR VEIN USING L OSM CONTRAST, GUIDANCE (12/13/15) FLUOROSCOPY OF RIGHT SUBCLAVIAN VEIN, GUIDANCE (08/07/16) HEMODIALYSIS (04/05/15) INJECT INSULIN (12/23/12) INJECT/INFUSE ELECTROLYT (12/23/12) INJECT/INFUSE NEC (01/17/15) INSERT INFUSION DEV IN R INT JUGULAR VEIN, PERC (02/23/16) INSERT VAD RESERVOIR IN CHEST SUBCU/FASCIA, OPEN (08/19/17) INSERTION OF INFUSION DEV INTO R BASILIC VEIN, PERC APPROACH (04/18/16) INSERTION OF INFUSION DEV INTO R BRACH VEIN, PERC APPROACH (02/19/17) INSERTION OF INFUSION DEV INTO R SUBCLAV VEIN, PERC APPROACH (08/29/16) INSERTION OF INFUSION DEV INTO SUP VENA CAVA, PERC APPROACH (08/19/17) INSERTION OF INFUSION DEVICE INTO R ATRIUM, PERC APPROACH (12/13/15) INSERTION OF VAD INTO CHEST SUBCU/FASCIA, OPEN APPROACH (12/13/15) MEASURE OF CARDIAC SAMPL & PRESSURE, L HEART, PERC APPROACH (10/09/16) OTHER ENDOSCOPY OF SM INTEST (08/25/14) PACKED CELL TRANSFUSION (10/26/14) PERFORMANCE OF URINARY FILTRATION, MULTIPLE (03/19/17) PERFORMANCE OF URINARY FILTRATION, SINGLE (11/27/16) PLAIN RADIOGRAPHY OF LEFT HEART USING OTHER CONTRAST (10/09/16) PLAIN RADIOGRAPHY OF MULT COR ART USING OTH CONTRAST (10/09/16) PLICATION OF VENA CAVA (03/22/14) POST NASAL PAC FOR EPIST (03/22/14) REMOVAL OF VAD FROM TRUNK SUBCU/FASCIA, OPEN APPROACH (02/23/16) RESECTION OF TOE NAIL, EXTERNAL APPROACH (08/19/17) [facility]T (03/03/14) THERAPEUTIC ERYTHROCYTAPHERESIS (10/26/14) TRANSFUSE NONAUT RED BLOOD CELLS IN PERIPH VEIN, PERC (02/19/17) ULTRASONOGRAPHY OF RIGHT AND LEFT HEART, TRANSESOPHAGEAL (02/19/17) ULTRASONOGRAPHY OF RIGHT SUBCLAVIAN VEIN, GUIDANCE (08/29/16) ULTRASONOGRAPHY OF RIGHT UPPER EXTREMITY VEINS, GUIDANCE (02/19/17) VACCINATION NEC (10/26/14) VENOUS CATHETERIZATION FOR RENAL DIALYSIS (03/03/14) Family History: States: Unknown Family Hx - Social History Hx Tobacco Use: No Hx Alcohol Use: No Hx Substance Use: No - Immunization History Hx Tetanus Toxoid Vaccination: No Hx Influenza Vaccination: Yes Hx Pneumococcal Vaccination: Yes Review Of Systems Constitutional: Negative for: Fever, Chills, Weakness Cardiovascular: Negative for: Chest Pain, Palpitations Respiratory: Positive for: Cough, Shortness of Breath, Sputum (clear) Gastrointestinal: Negative for: Nausea, Vomiting, Diarrhea Musculoskeletal: Positive for: Other (swelling in lower extremities) Neurological: Negative for: Weakness, Numbness, Dizziness Physical Exam - Physical Exam Appears: Other (facial edema) Skin: Warm, Dry Head: Atraumatic, Normacephalic Eye(s): bilateral: PERRL, EOMI Nose: Other (healing abrasion ) Throat: No Erythema, No Exudate Neck: Normal ROM, Trachea Midline Chest: Symmetrical, No Tenderness Respiratory: Normal Breath Sounds, No Rales, No Rhonchi, No Wheezing, Other (mild respiratory distress,tachypnic) Gastrointestinal/Abdominal: Soft, No Tenderness Back: Normal Inspection, No Decreased ROM Extremity: Swelling (bilateral lower extremities) Extremity: Left: Other (AV shunt with palpable thrill on the upper arm) Neurological/Psych: Oriented x3, Normal Motor, Normal Sensation ED Course And Treatment - Laboratory Results Result Diagrams: 09/24/18 21:37 09/24/18 21:37 ECG: Interpreted By Me, Viewed By Me Interpretation Of ECG: Normal QRS. Non-specific ST- segment abnormality O2 Sat by Pulse Oximetry: 91 Pulse Ox Interpretation: Abnormal - Radiology CXR: Interpreted by Me CXR Interpretation: Yes: No Acute Disease Medical Decision Making Medical Decision Making: Impression: SOB Differential Diagnosis: CHF, fluid overload, pleural effusion, electrolyte abnormality, anemia, acute on chronic renal failure. Plan: EKG and CXR ordered for patient. Patient given Catapres PO. Labs ordered with troponin for patient. CXR minimally changed c/w previous Labs demonstrate elevated glucose. Pt refusing ABG. AG within normal limits. Tro ponin normal. Insulin ordered. Admitted to telemetry for dyspnea, hyperglycemia, esrd. DW Dr Edilia Sexton PMD Disposition - Disposition Disposition: HOSPITALIZED Disposition Time: 00:00 Condition: FAIR - Clinical Impression Clinical Impression: ESRD (end stage renal disease) on dialysis, Dyspnea, Hyperglycemia - Scribe Statement The provider has reviewed the documentation as recorded by the Scribe (Anna Lorenzo) All medical record entries made by the Scribe were at my direction and personally dictated by me. I have reviewed the chart and agree that the record accurately reflects my personal performance of the history, physical exam, medical decision making, and the department course for this patient. I have also personally directed, reviewed, and agree with the discharge instructions and disposition.
[2018-09-24 21:42] LABS: BASO # 0.1 K/uL (0.0-0.2); BASO % 1.2 % (0.0-2.0); EOS # 0.5 K/uL (0.0-0.7); EOS % 9.8 % (0.0-4.0); HEMOGLOBIN 7.5 g/dL (11.0-16.0); LYMPH # 1.1 K/uL (1.0-4.3); LYMPH % 20.9 % (20.0-40.0); MEAN CORPUSCULAR HEMOGLOBIN 31.4 pg (27.0-31.0); MEAN CORPUSCULAR HGB CONC 31.3 g/dL (33.0-37.0); MEAN PLATELET VOLUME 7.1 fL (7.2-11.7); MONO # 0.3 K/uL (0.0-0.8); MONO % 6.4 % (0.0-10.0); NEUT # 3.1 K/uL (1.8-7.0); NEUT % 61.7 % (50.0-75.0); NRBC % 0.1 % (0.0-2.0); RBC 2.39 Mil/uL (3.80-5.20); RED CELL DISTRIBUTION WIDTH 17.6 % (11.5-14.5); WHITE BLOOD COUNT 5.1 K/uL (4.8-10.8)
[2018-09-24 21:44] LABS: MEAN CELL VOLUME 100.4 fL (81.0-99.0)
[2018-09-24 21:50] LABS: INR 1.1; PROTHROMBIN TIME 11.6 SECONDS (9.7-12.2)
[2018-09-24 22:15] LABS: ALB/GLOB RATIO 1.5 (1.0-2.1); ALBUMIN 4.1 g/dL (3.5-5.0); ALT/SGPT 6 U/L (9-52); AST/SGOT 23 U/L (14-36); BLOOD UREA NITROGEN 45 mg/dL (7-17); CALCIUM 8.5 mg/dl (8.6-10.4); GFR NON-AFRICAN AMERICAN 7
[2018-09-24] MEDS ORDERED: (Novolin R) Insulin Human Regular 100 units/ml vial IVP STA (22:39)
[2018-09-24] MEDS ORDERED: (Novolin 70/30) NPH/Regular 70/30 Units/ml 10 ml vial SC STA (22:39)
[2018-09-24] MEDS ORDERED: (Novolin R) Insulin Human Regular 100 units/ml vial ONE (22:56)
[2018-09-24] MEDS ORDERED: (Novolog Mix 70/30) Insulin Aspart/Insulin Aspar 100 units/ml SC ONE (22:57)
[2018-09-25] MEDS: HYDROmorphone 1 mg/ml ISec IVP PRN ×6 (00:28→21:55)
[2018-09-25] MEDS: Albuterol-Ipratrop 3 mg / 0.5 (3 ml) UD INH SCH ×4 (01:35→20:04)
[2018-09-25] MEDS ORDERED: Dextrose 50% SYRINGE Inj (50 ml) IV STA (02:48)
[2018-09-25] MEDS ORDERED: Dextrose 50% SYRINGE Inj (50 ml) IV PRN (02:49)
[2018-09-25] MEDS ORDERED: Glucagon Recombinant 1 mg Inj IM PRN (02:49)
[2018-09-25] MEDS ORDERED: Dextrose 50% VIAL Inj (50 ml) IV ONE (02:57)
--- NOTE | 2018-09-25 08:29 | RAD ---
Date of service: 09/24/2018 PROCEDURE: CHEST RADIOGRAPH, 1 VIEW HISTORY: SOB COMPARISON: Comparison is made with 08/23/2018 FINDINGS: LUNGS: [id number] pulmonary vascular congestion is noted. PLEURA: No pneumothorax or pleural fluid seen. CARDIOVASCULAR: The cardiac silhouette is mildly enlarged. Normal. OSSEOUS STRUCTURES: No significant abnormalities. VISUALIZED UPPER ABDOMEN: Normal. OTHER FINDINGS: Right-sided is again seen in place. IMPRESSION: Suboptimal study due to portable technique. Suspicious for mild pulmonary vascular congestion.
[2018-09-25] MEDS: (Novolin R) Insulin Human Regular 100 units/ml vial SC SCH ×4 (08:41→21:26)
[2018-09-25] MEDS: Ergocalciferol 50,000 Intl Units Cap PO SCH (09:56)
[2018-09-25] MEDS: Sucralfate 1 gm/10 ml Oral Susp UD PO SCH ×4 (09:56→21:25)
[2018-09-25] MEDS: Pantoprazole 40 mg EC Tab PO SCH (09:56)
[2018-09-25] MEDS: Acyclovir 5% Oint (15 gm) EXT SCH ×5 (10:37→21:56)
[2018-09-25] MEDS ORDERED: Epoetin Alfa 10,000 unit/ml Dialysis IV ONE ×2 (11:15→14:15)
[2018-09-25 12:18] LABS: INR 1.1; PROTHROMBIN TIME 11.9 SECONDS (9.7-12.2)
--- NOTE | 2018-09-25 13:04 | CP.PCM.CON ---
History of Present Illness - History of Present Illness History of Present Illness: 32 year old female presents to ED with complaint of SOB with swelling of lower extremities. Patient has end stage renal disease and CHF. She also complains of cough with production of clear sputum. - Medical History PMH: Anemia, Anxiety, Asthma, Bronchitis, CHF, Diabetes, Fractures (LEFT FOOT), Gastritis, Gastrointestinal Ulcer (gastroparesis), Gall Bladder Disease, Hepatitis, HTN, Hypercholesterolemia, Hyperthyroidism, Hypothyroidism, Kidney Stones, Pancreatitis, Peripheral Edema, Pneumonia, End Stage Renal Disease, Chronic Kidney Disease, Seizures, Sleep Apnea, Chronic Pain Surgical History: Cholecystectomy, Coronary Stent - [facility] Procedures (08/16/18) ASSISTANCE WITH RESPIRATORY VENTILATION, 24-96 HRS, CPAP (11/27/16) CAUTERY TO STOP EPISTAX (03/22/14) CENTRAL VENOUS CATHETER PLACEMENT WITH GUIDANCE (11/06/14) DIALYSIS ARTERIOVENOSTOM (01/10/14) DILATION OF LEFT SUBCLAVIAN VEIN, PERCUTANEOUS APPROACH (09/03/17) DRAINAGE OF RIGHT FOOT SKIN, EXTERNAL APPROACH (07/17/16) DRAINAGE OF RIGHT LOWER ARM SKIN, EXTERNAL APPROACH (05/25/16) ESOPHAGOGASTRODUODENOSCOPY [EGD] W/CLOSED BIOPSY (03/03/14) EXCISION OF LEFT TOE PHALANX, OPEN APPROACH (07/12/17) EXCISION OF STOMACH, ENDO, DIAGN (05/09/16) EXTIRPATE MATTER FROM R LOW ARM SUBCU/FASCIA, PERC (05/25/16) EXTRACTION OF RIGHT FOOT SKIN, EXTERNAL APPROACH (05/25/16) EXTRACTION OF TOE NAIL, EXTERNAL APPROACH (07/12/17) FLEXIBLE SIGMOIDOSCOPY (10/26/14) FLUOROSCOPY OF LEFT SUBCLAVIAN VEIN USING OTHER CONTRAST (09/03/17) FLUOROSCOPY OF R JUGULAR VEIN USING L OSM CONTRAST, GUIDANCE (12/13/15) FLUOROSCOPY OF RIGHT SUBCLAVIAN VEIN, GUIDANCE (08/07/16) HEMODIALYSIS (04/05/15) INJECT INSULIN (12/23/12) INJECT/INFUSE ELECTROLYT (12/23/12) INJECT/INFUSE NEC (01/17/15) INSERT INFUSION DEV IN R INT JUGULAR VEIN, PERC (02/23/16) INSERT VAD RESERVOIR IN CHEST SUBCU/FASCIA, OPEN (08/19/17) INSERTION OF INFUSION DEV INTO R BASILIC VEIN, PERC APPROACH (04/18/16) INSERTION OF INFUSION DEV INTO R BRACH VEIN, PERC APPROACH (02/19/17) INSERTION OF INFUSION DEV INTO R SUBCLAV VEIN, PERC APPROACH (08/29/16) INSERTION OF INFUSION DEV INTO SUP VENA CAVA, PERC APPROACH (08/19/17) INSERTION OF INFUSION DEVICE INTO R ATRIUM, PERC APPROACH (12/13/15) INSERTION OF VAD INTO CHEST SUBCU/FASCIA, OPEN APPROACH (12/13/15) MEASURE OF CARDIAC SAMPL & PRESSURE, L HEART, PERC APPROACH (10/09/16) OTHER ENDOSCOPY OF SM INTEST (08/25/14) PACKED CELL TRANSFUSION (10/26/14) PERFORMANCE OF URINARY FILTRATION, MULTIPLE (03/19/17) PERFORMANCE OF URINARY FILTRATION, SINGLE (11/27/16) PLAIN RADIOGRAPHY OF LEFT HEART USING OTHER CONTRAST (10/09/16) PLAIN RADIOGRAPHY OF MULT COR ART USING OTH CONTRAST (10/09/16) PLICATION OF VENA CAVA (03/22/14) POST NASAL PAC FOR EPIST (03/22/14) REMOVAL OF VAD FROM TRUNK SUBCU/FASCIA, OPEN APPROACH (02/23/16) RESECTION OF TOE NAIL, EXTERNAL APPROACH (08/19/17) [facility] (03/03/14) THERAPEUTIC ERYTHROCYTAPHERESIS (10/26/14) TRANSFUSE NONAUT RED BLOOD CELLS IN PERIPH VEIN, PERC (02/19/17) ULTRASONOGRAPHY OF RIGHT AND LEFT HEART, TRANSESOPHAGEAL (02/19/17) ULTRASONOGRAPHY OF RIGHT SUBCLAVIAN VEIN, GUIDANCE (08/29/16) ULTRASONOGRAPHY OF RIGHT UPPER EXTREMITY VEINS, GUIDANCE (02/19/17) VACCINATION NEC (10/26/14) VENOUS CATHETERIZATION FOR RENAL DIALYSIS (03/03/14) Review of Systems - Review of Systems All systems: reviewed and no additional remarkable complaints except - Constitutional Constitutional: As Per HPI - EENT Eyes: absent: As Per HPI, Blind Spots, Blurred Vision, Change in Vision, Decreased Night Vision, Diplopia, Discharge, Dry Eye, Exophthalmos, Floaters, Irritation, Itchy Eyes, Loss of Peripheral Vision, Pain, Photophobia, Requires Corrective Lenses, Sees Flashes, Spots in Vision, Tunnel Vision, Other Visual Disturbances, Loss of Vision, Other Ears: absent: As Per HPI, Decreased Hearing, Ear Discharge, Ear Pain, Tinnitus, Abnormal Hearing, Disequilibrium, Dizziness, Other Nose/Mouth/Throat: absent: As Per HPI, Epistaxis, Nasal Congestion, Nasal Discharge, Nasal Obstruction, Nasal Trauma, Nose Pain, Post Nasal Drip, Sinus Pain, Sinus Pressure, Bleeding Gums, Change in Voice, Dental Pain, Dry Mouth, Dysphagia, Halitosis, Hoarsness, Lip Swelling, Mouth Lesions, Mouth Pain, Odynophagia, Sore Throat, Throat Swelling, Tongue Swelling, Facial Pain, Neck Pain, Neck Mass, Other - Breasts Breasts: absent: As Per HPI, Change in Shape, Mass, Pain, Nipple Discharge, Nipple Inversion, Skin Changes, Swelling, Other - Cardiovascular Cardiovascular: As Per HPI - Respiratory Respiratory: As Per HPI, Cough - Gastrointestinal Gastrointestinal: absent: As Per HPI, Abdominal Pain, Belching, Bloating, Change in Bowel Habits, Change in Stool Character, Coffee Ground Emesis, Constipation, Cramping, Diarrhea, Dyspepsia, Dysphagia, Early Satiety, Excessive Flatus, Feca l Incontinence, Heartburn, Hematemesis, Hematochezia, Loose Stools, Melena, Nausea, Odynophagia, Temesmus, Vomiting, Other - Genitourinary Genitourinary: absent: As Per HPI, Change in Urinary Stream, Difficulty Urinating, Dysuria, Flank Pain, Hematuria, Pyuria, Nocturia, Urinary Incontinence, Urinary Frequency, Urinary Hesitance, Urinary Urgency, Voiding Freq/Small Amts, Freq UTI, Hx Renal/Bladder Calculi, Hx /Renal Surgery, Bladder Distension, Other - Reproductive: Female Reproductive:Female: absent: As Per HPI, Amenorrhea, Amenorrhea/ Control, Currently Menstual, Cycle <21 Days, Cycle >35 Days, Cycle Variable, Menses 1-7 Days, Menses >/= 8 Days, Menses Variable, Cycle > 4 Weeks Between, No Menses for 6 Months, Heavy Menses, Light Menses, Normal Menses, Spotting Between Cycles, S/P Hysterectomy, Menopausal, Post Menopausal, Premenarche, Abnormal Vaginal Bleeding, Dysmenorrhea, Dyspareunia, Genital Lesions, Genital Pruritis, Pelvic Pain, Prolapse Symptoms, Sexual Dysfunction, Vaginal Discharge, Vaginal Dryness, Vaginal Odor, Vaginal Pruritis, Other - Menstruation Menstruation: absent: As Per HPI, Amenorrhea, Amenorrhea/ Control, Currently Menstual, Cycle <21 Days, Cycle >35 Days, Cycle Variable, Menses 1-7 Days, Menses >/= 8 Days, Menses Variable, Cycle > 4 Weeks Between, No Menses for 6 Months, Heavy Menses, Light Menses, Normal Menses, Spotting Between Cycles, S/P Hysterectomy, Menopausal, Post Menopausal, Premenarche, Abnormal Vaginal Bleeding, Dysmenorrhea, Other - Musculoskeletal Musculoskeletal: absent: As Per HPI, Abnormal Gait, Arthralgias, Atrophy, Back Pain, Deformity, Joint Swelling, Limited Range of Motion, Loss of Height, Muscle Cramps, Muscle Weakness, Myalgias, Neck Pain, Numbness, Radiating Pain into Limb, Stiffness, Tingling, Other - Integumentary Integumentary: absent: As Per HPI, Acne, Alopecia, Bleeding Lesions, Change in Hair, Change in Nails, Change in Pigmentation, Changing Lesions, Dry Skin, Erythema, Furuncle, Hirsutism, Lesions, New Lesions, Non-Healing Lesions, Photosensitivity, Pruritus, Rash, Skin Pain, Skin Ulcer, Sores, Striae, Swelling, Unusual Bruising, Wounds, Jaundice, Other - Neurological Neurological: absent: As Per HPI, Abnormal Gait, Abnormal Hearing, Abnormal Movements, Abnormal Speech, Behavioral Changes, Burning Sensations, Confusion, Convulsions, Disequilibrium, Dizziness, Numbness, Focal Weakness, Frequent Falls, Headaches, Lack of Coordination, Loss of Vision, Memory Loss, Paresthesias, Radicular Pain, Restless Legs, Sensory Deficit, Syncope, Tingling, Tremor, Vertigo, Weakness, Other Visual Disturbances, Other - Psychiatric Psychiatric: absent: As Per HPI, Abnormal Sleep Pattern, Anhedonia, Anxiety, Auditory Hallucinations, Behavioral Changes, Change in Appetite, Change in Libido, Confusion, Depression, Difficulty Concentrating, Hallucinations, Homicidal Ideation, Hopelessness, Irritability, Memory Loss, Mood Swings, Panic Attacks, Paranoia, Suicidal Ideation, Visual Hallucinations, Tactile Hallucinations, Other - Endocrine Endocrine: absent: As Per HPI, Change in Body Appearance, Change in Libido, Cold Intolorance, Deepening of Voice, Excessive Sweating, Fatigue, Flushing, Heat Intolorance, Increase in Ring/Shoe/Hat Size, Palpitations, Polydipsia, Polyphagia, Polyuria, Other - Hematologic/Lymphatic Hematologic: absent: As Per HPI, Easy Bleeding, Easy Bruising, Lymphadenopathy, Other Past Patient History - Infectious Disease Hx of Infectious Diseases: None - Tetanus Immunizations Tetanus Immunization: Unknown - Past Medical History & Family History Past Medical History?: Yes - Past Social History Smoking Status: Never Smoked - CARDIAC Hx Congestive Heart Failure: Yes Hx Hypercholesterolemia: Yes Hx Hypertension: Yes Hx Peripheral Edema: Yes - PULMONARY Hx Asthma: Yes Hx Bronchitis: Yes Hx Pneumonia: Yes Hx Sleep Apnea: Yes - NEUROLOGICAL Hx Seizures: Yes - HEENT Hx HEENT Problems: Yes Hx Cataracts: Yes (BOTH EYES) Hx Glaucoma: Yes (BOTH EYES) - RENAL Hx Chronic Kidney Disease: Yes Hx Kidney Stones: Yes - ENDOCRINE/METABOLIC Hx Hyperthyroidism: Yes Hx Hypothyroidism: Yes - HEMATOLOGICAL/ONCOLOGICAL Hx Anemia: Yes - INTEGUMENTARY Hx Dermatological Problems: Yes Other/Comment: DRY ITCHY SKIN ;multiple/generalized dark spots on skin. left toe blister - MUSCULOSKELETAL/RHEUMATOLOGICAL Hx Falls: No Hx Fractures: Yes (LEFT FOOT) - GASTROINTESTINAL Hx Gall Bladder Disease: Yes Hx Gastritis: Yes Hx Pancreatitis: Yes - PSYCHIATRIC Hx Anxiety: Yes Hx Substance Use: No - SURGICAL HISTORY Hx Cholecystectomy: Yes Hx Coronary Stent: Yes - ANESTHESIA Hx Anesthesia: Yes Hx Anesthesia Reactions: No Hx Malignant Hyperthermia: No Meds Allergies/Adverse Reactions: Allergies Allergy/AdvReac Type Severity Reaction Status Date / Time ketorolac tromethamine Allergy RASH Verified 09/24/18 20:59 [From Toradol] latex Allergy RASH Verified 09/24/18 20:59 morphine Allergy RASH Verified 09/24/18 20:59 tramadol Allergy RASH Verified 09/24/18 20:59 hydromorphone AdvReac ITCHING Verified 09/24/18 20:59 - Medications Medications: Current Medications Acyclovir (Zovirax 5% Oint) 1 gm EXT Q3H [facility] Last Admin: 09/25/18 10:37 Dose: Not Given Albuterol/Ipratropium (Duoneb 3 Mg/0.5 Mg (3 Ml) Ud) 3 ml INH RQ6 [facility] Last Admin: 09/25/18 07:25 Dose: 3 ml Calcium Acetate (Phoslo) 667 mg PO TID [facility] Last Admin: 09/25/18 09:57 Dose: Not Given Clonidine HCl (Catapres) 0.3 mg PO BID [facility] Last Admin: 09/25/18 10:10 Dose: Not Given Dextrose (Dextrose 50% Inj) 0 ml IV STAT PRN; Protocol PRN Reason: Hypoglycemia Protocol Dextrose (Glutose 15) 0 gm PO ONCE PRN; Protocol PRN Reason: Hypoglycemia Protocol Diphenhydramine HCl (Benadryl) 25 mg PO Q4H PRN PRN Reason: Itching / Pruritus Last Admin: 09/25/18 08:39 Dose: 25 mg Docusate Sodium (Colace) 100 mg PO TID [facility] Last Admin: 09/25/18 09:57 Dose: 100 mg Ergocalciferol (Drisdol 50,000 Intl Units Cap) 1 cap PO Q7D [facility] Last Admin: 09/25/18 09:56 Dose: 1 cap Ferric Sodium Gluconate Complex (Ferrlecit) 125 mg IVPB DAILY [facility] Stop: 10/03/18 10:46 Gabapentin (Neurontin) 300 mg PO BID [facility] Last Admin: 09/25/18 09:57 Dose: 300 mg Glucagon (Glucagen Diagnostic Kit) 0 mg IM STAT PRN; Protocol PRN Reason: Hypoglycemia Protocol Heparin Sodium (Porcine) (Heparin) 5,000 units SC Q12H [facility] Last Admin: 09/25/18 10:38 Dose: Not Given Hydromorphone HCl (Dilaudid) 2 mg IVP Q4H PRN PRN Reason: Pain, severe (8-10) Last Admin: 09/25/18 08:39 Dose: 2 mg Dextrose (Dextrose 5% In Water 1000 Ml) 1,000 mls @ 0 mls/hr IV .Q0M PRN; Protocol PRN Reason: Hypoglycemia Protocol Insulin Glargine (Lantus) 25 unit SC HS [facility] Insulin Human Regular (Novolin R) 0 unit SC ACHS [facility]; Protocol Last Admin: 09/25/18 11:50 Dose: Not Given Ondansetron HCl (Zofran Tab) 8 mg PO Q8H [facility] Last Admin: 09/25/18 09:57 Dose: 8 mg Pantoprazole Sodium (Protonix Ec Tab) 40 mg PO DAILY [facility] Last Admin: 09/25/18 09:56 Dose: 40 mg Sucralfate (Carafate Oral Susp) 1 gm PO QID [facility] Last Admin: 09/25/18 09:56 Dose: 1 gm Physical Exam - Constitutional Appears: Non-toxic, Chronically Ill - Head Exam Head Exam: NORMOCEPHALIC - Eye Exam Eye Exam: absent: Scleral icterus - ENT Exam ENT Exam: Mucous Membranes Dry - Neck Exam Neck exam: Negative for: Lymphadenopathy - Respiratory Exam Respiratory Exam: Decreased Breath Sounds - Cardiovascular Exam Cardiovascular Exam: REGULAR RHYTHM - GI/Abdominal Exam GI & Abdominal Exam: Diminished Bowel Sounds, Soft - Rectal Exam Rectal Exam: Deferred - Exam Exam: NORMAL INSPECTION - Extremities Exam Extremities exam: Positive for: pedal edema - Back Exam Back exam: absent: CVA tenderness (L), CVA tenderness (R) - Neurological Exam Neurological exam: Alert, CN II-XII Intact, Oriented x3, Reflexes Normal - Psychiatric Exam Psychiatric exam: Depressed - Skin Skin Exam: Dry Results - Vital Signs Recent Vital Signs: Last Vital Signs Temp 98.2 F 09/25/18 07:47 Pulse 93 H 09/25/18 11:07 Resp 20 09/25/18 07:47 BP 153/89 H 09/25/18 07:47 Pulse Ox 100 09/25/18 07:47 - Labs Result Diagrams: 09/24/18 21:37 09/24/18 21:37 Labs: Laboratory Results - last 24 hr 09/24/18 09/24/18 09/24/18 21:37 21:37 21:37 WBC 5.1 RBC 2.39 L Hgb 7.5 L Hct 24.0 L MCV 100.4 H D MCH 31.4 H MCHC 31.3 L RDW 17.6 H Plt Count 377 D MPV 7.1 L Neut % (Auto) 61.7 Lymph % (Auto) 20.9 Edgar % (Auto) 6.4 Eos % (Auto) 9.8 H Baso % (Auto) 1.2 Neut # (Auto) 3.1 Lymph # (Auto) 1.1 Edgar # (Auto) 0.3 Eos # (Auto) 0.5 Baso # (Auto) 0.1 PT 11.6 INR 1.1 APTT 109 H* Sodium 133 Potassium 4.7 Chloride 96 L Carbon Dioxide 26 Anion Gap 16 BUN 45 H Creatinine 6.6 H Est GFR ( Amer) 9 Est GFR (Non-Af Amer) 7 POC Glucose (mg/dL) Random Glucose 541 H* D Calcium 8.5 L Phosphorus 4.8 H Magnesium 2.2 Total Bilirubin 0.4 AST 23 ALT 6 L D Alkaline Phosphatase 138 H Troponin I < 0.0120 Total Protein 6.8 Albumin 4.1 Globulin 2.7 Albumin/Globulin Ratio 1.5 Beta HCG, Quant 09/24/18 09/25/18 09/25/18 21:37 02:43 03:37 WBC RBC Hgb Hct MCV MCH MCHC RDW Plt Count MPV Neut % (Auto) Lymph % (Auto) Edgar % (Auto) Eos % (Auto) Baso % (Auto) Neut # (Auto) Lymph # (Auto) Edgar # (Auto) Eos # (Auto) Baso # (Auto) PT INR APTT Sodium Potassium Chloride Carbon Dioxide Anion Gap BUN Creatinine Est GFR ( Amer) Est GFR (Non-Af Amer) POC Glucose (mg/dL) 48 L 212 H Random Glucose Calcium Phosphorus Magnesium Total Bilirubin AST ALT Alkaline Phosphatase Troponin I Total Protein Albumin Globulin Albumin/Globulin Ratio Beta HCG, Quant < 2.39 09/25/18 09/25/18 09/25/18 06:00 11:08 12:04 WBC RBC Hgb Hct MCV MCH MCHC RDW Plt Count MPV Neut % (Auto) Lymph % (Auto) Edgar % (Auto) Eos % (Auto) Baso % (Auto) Neut # (Auto) Lymph # (Auto) Edgar # (Auto) Eos # (Auto) Baso # (Auto) PT 11.9 INR 1.1 APTT 32 D Sodium Potassium Chloride Carbon Dioxide Anion Gap BUN Creatinine Est GFR ( Amer) Est GFR (Non-Af Amer) POC Glucose (mg/dL) 155 H 114 H Random Glucose Calcium Phosphorus Magnesium Total Bilirubin AST ALT Alkaline Phosphatase Troponin I Total Protein Albumin Globulin Albumin/Globulin Ratio Beta HCG, Quant Assessment & Plan - Assessment and Plan (Free Text) Assessment: 32 yo female with ESRD admitted for possible fluid overload status vs pneumonia cultured up IV rx in progress
[2018-09-25] MEDS: Ferric Sodium Gluconat Complex 62.5 mg/5 ml Vial IVPB SCH ×2 (13:24→14:00)
--- NOTE | 2018-09-25 15:10 | CP.PCM.PN ---
Subjective - Date & Time of Evaluation Date of Evaluation: 09/25/18 Time of Evaluation: 10:00 - Subjective Subjective: clinically same Objective - Vital Signs/Intake and Output Vital Signs (last 24 hours): Temp Pulse Resp BP Pulse Ox 97.4 F L 93 H 16 114/81 98 09/25/18 11:00 09/25/18 11:07 09/25/18 11:40 09/25/18 14:30 09/25/18 11:40 Intake and Output: 09/25/18 09/25/18 06:59 18:59 Intake Total 800 Balance 800 - Medications Medications: Current Medications Acyclovir (Zovirax 5% Oint) 1 gm EXT Q3H [facility] Last Admin: 09/25/18 13:25 Dose: Not Given Albuterol/Ipratropium (Duoneb 3 Mg/0.5 Mg (3 Ml) Ud) 3 ml INH RQ6 [facility] Last Admin: 09/25/18 07:25 Dose: 3 ml Calcium Acetate (Phoslo) 667 mg PO TID [facility] Last Admin: 09/25/18 13:25 Dose: Not Given Clonidine HCl (Catapres) 0.3 mg PO BID [facility] Last Admin: 09/25/18 10:10 Dose: Not Given Dextrose (Dextrose 50% Inj) 0 ml IV STAT PRN; Protocol PRN Reason: Hypoglycemia Protocol Dextrose (Glutose 15) 0 gm PO ONCE PRN; Protocol PRN Reason: Hypoglycemia Protocol Diphenhydramine HCl (Benadryl) 25 mg PO Q4H PRN PRN Reason: Itching / Pruritus Last Admin: 09/25/18 13:04 Dose: 25 mg Docusate Sodium (Colace) 100 mg PO TID [facility] Last Admin: 09/25/18 13:25 Dose: Not Given Ergocalciferol (Drisdol 50,000 Intl Units Cap) 1 cap PO Q7D [facility] Last Admin: 09/25/18 09:56 Dose: 1 cap Ferric Sodium Gluconate Complex (Ferrlecit) 125 mg IVPB DAILY [facility] Stop: 10/03/18 10:46 Last Admin: 09/25/18 14:00 Dose: 125 mg Gabapentin (Neurontin) 300 mg PO BID [facility] Last Admin: 09/25/18 09:57 Dose: 300 mg Glucagon (Glucagen Diagnostic Kit) 0 mg IM STAT PRN; Protocol PRN Reason: Hypoglycemia Protocol Heparin Sodium (Porcine) (Heparin) 5,000 units SC Q12H [facility] Last Admin: 09/25/18 10:38 Dose: Not Given Hydromorphone HCl (Dilaudid) 2 mg IVP Q4H PRN PRN Reason: Pain, severe (8-10) Last Admin: 09/25/18 13:04 Dose: 2 mg Dextrose (Dextrose 5% In Water 1000 Ml) 1,000 mls @ 0 mls/hr IV .Q0M PRN; Protocol PRN Reason: Hypoglycemia Protocol Insulin Glargine (Lantus) 25 unit SC HS [facility] Insulin Human Regular (Novolin R) 0 unit SC ACHS [facility]; Protocol Last Admin: 09/25/18 11:50 Dose: Not Given Ondansetron HCl (Zofran Tab) 8 mg PO Q8H [facility] Last Admin: 09/25/18 09:57 Dose: 8 mg Pantoprazole Sodium (Protonix Ec Tab) 40 mg PO DAILY [facility] Last Admin: 09/25/18 09:56 Dose: 40 mg Sucralfate (Carafate Oral Susp) 1 gm PO QID [facility] Last Admin: 09/25/18 13:25 Dose: Not Given - Labs Labs: 09/24/18 21:37 09/24/18 21:37 PT 11.9 SECONDS (9.7-12.2) 09/25/18 12:04 INR 1.1 09/25/18 12:04 APTT 32 SECONDS (21-34) D 09/25/18 12:04
--- NOTE | 2018-09-25 15:11 | CP.PCM.HP ---
Past Patient History - Infectious Disease Hx of Infectious Diseases: None - Tetanus Immunizations Tetanus Immunization: Unknown - Past Medical History & Family History Past Medical History?: Yes - Past Social History Smoking Status: Never Smoked - CARDIAC Hx Congestive Heart Failure: Yes Hx Hypercholesterolemia: Yes Hx Hypertension: Yes Hx Peripheral Edema: Yes - PULMONARY Hx Asthma: Yes Hx Bronchitis: Yes Hx Pneumonia: Yes Hx Sleep Apnea: Yes - NEUROLOGICAL Hx Seizures: Yes - HEENT Hx HEENT Problems: Yes Hx Cataracts: Yes (BOTH EYES) Hx Glaucoma: Yes (BOTH EYES) - RENAL Hx Chronic Kidney Disease: Yes Hx Kidney Stones: Yes - ENDOCRINE/METABOLIC Hx Hyperthyroidism: Yes Hx Hypothyroidism: Yes - HEMATOLOGICAL/ONCOLOGICAL Hx Anemia: Yes - INTEGUMENTARY Hx Dermatological Problems: Yes Other/Comment: DRY ITCHY SKIN ;multiple/generalized dark spots on skin. left toe blister - MUSCULOSKELETAL/RHEUMATOLOGICAL Hx Falls: No Hx Fractures: Yes (LEFT FOOT) - GASTROINTESTINAL Hx Gall Bladder Disease: Yes Hx Gastritis: Yes Hx Pancreatitis: Yes - PSYCHIATRIC Hx Anxiety: Yes Hx Substance Use: No - SURGICAL HISTORY Hx Cholecystectomy: Yes Hx Coronary Stent: Yes - ANESTHESIA Hx Anesthesia: Yes Hx Anesthesia Reactions: No Hx Malignant Hyperthermia: No Meds Allergies/Adverse Reactions: Allergies Allergy/AdvReac Type Severity Reaction Status Date / Time ketorolac tromethamine Allergy RASH Verified 09/24/18 20:59 [From Toradol] latex Allergy RASH Verified 09/24/18 20:59 morphine Allergy RASH Verified 09/24/18 20:59 tramadol Allergy RASH Verified 09/24/18 20:59 hydromorphone AdvReac ITCHING Verified 09/24/18 20:59 Physical Exam - Constitutional Appears: Well - Head Exam Head Exam: ATRAUMATIC, NORMAL INSPECTION, NORMOCEPHALIC - Eye Exam Eye Exam: EOMI, Normal appearance, PERRL Pupil Exam: NORMAL ACCOMODATION, PERRL - ENT Exam ENT Exam: Mucous Membranes Moist, Normal Exam - Neck Exam Neck exam: Positive for: Normal Inspection - Respiratory Exam Respiratory Exam: Decreased Breath Sounds - Cardiovascular Exam Cardiovascular Exam: REGULAR RHYTHM, +S1, +S2 - GI/Abdominal Exam GI & Abdominal Exam: Diminished Bowel Sounds, Soft - Rectal Exam Rectal Exam: Deferred Results - Vital Signs Recent Vital Signs: Last Vital Signs Temp 97.4 F L 09/25/18 11:00 Pulse 93 H 09/25/18 11:07 Resp 16 02/13/19 11:40 BP 114/81 09/25/18 14:30 Pulse Ox 98 09/25/18 11:40 - Labs Result Diagrams: 09/24/18 21:37 09/24/18 21:37 Labs: Laboratory Results - last 24 hr 09/24/18 09/24/18 09/24/18 21:37 21:37 21:37 WBC 5.1 RBC 2.39 L Hgb 7.5 L Hct 24.0 L MCV 100.4 H D MCH 31.4 H MCHC 31.3 L RDW 17.6 H Plt Count 377 D MPV 7.1 L Neut % (Auto) 61.7 Lymph % (Auto) 20.9 Cochran % (Auto) 6.4 Eos % (Auto) 9.8 H Baso % (Auto) 1.2 Neut # (Auto) 3.1 Lymph # (Auto) 1.1 Cochran # (Auto) 0.3 Eos # (Auto) 0.5 Baso # (Auto) 0.1 PT 11.6 INR 1.1 APTT 109 H* Sodium 133 Potassium 4.7 Chloride 96 L Carbon Dioxide 26 Anion Gap 16 BUN 45 H Creatinine 6.6 H Est GFR ( Amer) 9 Est GFR (Non-Af Amer) 7 POC Glucose (mg/dL) Random Glucose 541 H* D Calcium 8.5 L Phosphorus 4.8 H Magnesium 2.2 Total Bilirubin 0.4 AST 23 ALT 6 L D Alkaline Phosphatase 138 H Troponin I < 0.0120 Total Protein 6.8 Albumin 4.1 Globulin 2.7 Albumin/Globulin Ratio 1.5 Beta HCG, Quant 09/24/18 09/25/18 09/25/18 21:37 02:43 03:37 WBC RBC Hgb Hct MCV MCH MCHC RDW Plt Count MPV Neut % (Auto) Lymph % (Auto) Cochran % (Auto) Eos % (Auto) Baso % (Auto) Neut # (Auto) Lymph # (Auto) Cochran # (Auto) Eos # (Auto) Baso # (Auto) PT INR APTT Sodium Potassium Chloride Carbon Dioxide Anion Gap BUN Creatinine Est GFR ( Amer) Est GFR (Non-Af Amer) POC Glucose (mg/dL) 48 L 212 H Random Glucose Calcium Phosphorus Magnesium Total Bilirubin AST ALT Alkaline Phosphatase Troponin I Total Protein Albumin Globulin Albumin/Globulin Ratio Beta HCG, Quant < 2.39 09/25/18 09/25/18 09/25/18 06:00 11:08 12:04 WBC RBC Hgb Hct MCV MCH MCHC RDW Plt Count MPV Neut % (Auto) Lymph % (Auto) Cochran % (Auto) Eos % (Auto) Baso % (Auto) Neut # (Auto) Lymph # (Auto) Cochran # (Auto) Eos # (Auto) Baso # (Auto) PT 11.9 INR 1.1 APTT 32 D Sodium Potassium Chloride Carbon Dioxide Anion Gap BUN Creatinine Est GFR ( Amer) Est GFR (Non-Af Amer) POC Glucose (mg/dL) 155 H 114 H Random Glucose Calcium Phosphorus Magnesium Total Bilirubin AST ALT Alkaline Phosphatase Troponin I Total Protein Albumin Globulin Albumin/Globulin Ratio Beta HCG, Quant
[2018-09-25] MEDS: (Lantus) Insulin Glargine, Recombinant SC SCH (21:25)
[2018-09-26] MEDS: Albuterol-Ipratrop 3 mg / 0.5 (3 ml) UD INH SCH ×5 (01:35→19:54)
[2018-09-26] MEDS: HYDROmorphone 1 mg/ml ISec IVP PRN ×6 (01:49→21:40)
[2018-09-26] MEDS: Acyclovir 5% Oint (15 gm) EXT SCH ×8 (02:39→21:43)
[2018-09-26] MEDS: (Novolin R) Insulin Human Regular 100 units/ml vial SC SCH ×5 (08:27→21:33)
[2018-09-26] MEDS: Pantoprazole 40 mg EC Tab PO SCH (09:15)
[2018-09-26] MEDS: Ferric Sodium Gluconat Complex 62.5 mg/5 ml Vial IVPB SCH (09:15)
[2018-09-26] MEDS: Sucralfate 1 gm/10 ml Oral Susp UD PO SCH ×4 (09:15→21:40)
--- NOTE | 2018-09-26 18:55 | CP.PCM.PN ---
Subjective - Date & Time of Evaluation Date of Evaluation: 09/26/18 Time of Evaluation: 08:00 - Subjective Subjective: afeb persistent cough cultures sent Objective - Vital Signs/Intake and Output Vital Signs (last 24 hours): Temp Pulse Resp BP Pulse Ox 98.4 F 104 H 20 162/84 H 97 09/26/18 15:32 09/26/18 16:00 09/26/18 15:32 09/26/18 15:32 09/26/18 15:32 - Medications Medications: Current Medications Acyclovir (Zovirax 5% Oint) 1 gm EXT Q3H [facility] Last Admin: 09/26/18 18:54 Dose: 1 units Albuterol/Ipratropium (Duoneb 3 Mg/0.5 Mg (3 Ml) Ud) 3 ml INH RQ6 [facility] Last Admin: 09/26/18 13:50 Dose: Not Given Amlodipine Besylate (Norvasc) 5 mg PO DAILY [facility] Last Admin: 09/26/18 12:00 Dose: 5 mg Calcium Acetate (Phoslo) 667 mg PO TID [facility] Last Admin: 09/26/18 17:49 Dose: 667 mg Clonidine HCl (Catapres) 0.3 mg PO BID [facility] Last Admin: 09/26/18 17:48 Dose: 0.3 mg Dextrose (Dextrose 50% Inj) 0 ml IV STAT PRN; Protocol PRN Reason: Hypoglycemia Protocol Dextrose (Glutose 15) 0 gm PO ONCE PRN; Protocol PRN Reason: Hypoglycemia Protocol Diphenhydramine HCl (Benadryl) 25 mg PO Q4H PRN PRN Reason: Itching / Pruritus Last Admin: 09/26/18 17:48 Dose: 25 mg Docusate Sodium (Colace) 100 mg PO TID [facility] Last Admin: 09/26/18 17:48 Dose: 100 mg Ergocalciferol (Drisdol 50,000 Intl Units Cap) 1 cap PO Q7D [facility] Last Admin: 09/25/18 09:56 Dose: 1 cap Ferric Sodium Gluconate Complex (Ferrlecit) 125 mg IVPB DAILY [facility] Stop: 10/03/18 10:46 Last Admin: 09/26/18 09:15 Dose: 125 mg Gabapentin (Neurontin) 300 mg PO BID [facility] Last Admin: 09/26/18 17:48 Dose: 300 mg Glucagon (Glucagen Diagnostic Kit) 0 mg IM STAT PRN; Protocol PRN Reason: Hypoglycemia Protocol Heparin Sodium (Porcine) (Heparin) 5,000 units SC Q12H [facility] Last Admin: 09/26/18 12:29 Dose: Not Given Hydromorphone HCl (Dilaudid) 2 mg IVP Q4H PRN PRN Reason: Pain, severe (8-10) Last Admin: 09/26/18 17:49 Dose: 2 mg Dextrose (Dextrose 5% In Water 1000 Ml) 1,000 mls @ 0 mls/hr IV .Q0M PRN; Protocol PRN Reason: Hypoglycemia Protocol Insulin Glargine (Lantus) 25 unit SC HS [facility] Last Admin: 09/25/18 21:25 Dose: 25 units Insulin Human Regular (Novolin R) 0 unit SC ACHS [facility]; Protocol Last Admin: 09/26/18 17:49 Dose: 3 unit Ondansetron HCl (Zofran Tab) 8 mg PO Q8H [facility] Last Admin: 09/26/18 16:49 Dose: Not Given Pantoprazole Sodium (Protonix Ec Tab) 40 mg PO DAILY [facility] Last Admin: 09/26/18 09:15 Dose: 40 mg Sucralfate (Carafate Oral Susp) 1 gm PO QID [facility] Last Admin: 09/26/18 17:48 Dose: 1 gm - Labs Labs: 09/24/18 21:37 09/24/18 21:37 PT 11.9 SECONDS (9.7-12.2) 09/25/18 12:04 INR 1.1 09/25/18 12:04 APTT 32 SECONDS (21-34) D 09/25/18 12:04 - Constitutional Appears: Well - Head Exam Head Exam: ATRAUMATIC, NORMAL INSPECTION, NORMOCEPHALIC - Eye Exam Eye Exam: EOMI, Normal appearance, PERRL Pupil Exam: NORMAL ACCOMODATION, PERRL - ENT Exam ENT Exam: Mucous Membranes Moist, Normal Exam - Neck Exam Neck Exam: Full ROM, Normal Inspection. absent: Lymphadenopathy - Respiratory Exam Respiratory Exam: Clear to Ausculation Bilateral, NORMAL BREATHING PATTERN - Cardiovascular Exam Cardiovascular Exam: REGULAR RHYTHM, +S1, +S2. absent: Murmur - GI/Abdominal Exam GI & Abdominal Exam: Soft, Normal Bowel Sounds. absent: Tenderness - Rectal Exam Rectal Exam: Deferred - Extremities Exam Extremities Exam: Full ROM, Normal Capillary Refill, Normal Inspection. absent: Joint Swelling, Pedal Edema - Back Exam Back Exam: NORMAL INSPECTION - Neurological Exam Neurological Exam: Alert, Awake, CN II-XII Intact, Normal Gait, Oriented x3 - Psychiatric Exam Psychiatric exam: Normal Affect, Normal Mood - Skin Skin Exam: Dry, Intact, Normal Color, Warm Assessment and Plan - Assessment and Plan (Free Text) Assessment: cont empiric rx await cultures hold antibiotics follow up CXR pulm eval
--- NOTE | 2018-09-26 19:29 | CP.PCM.PN ---
Subjective - Date & Time of Evaluation Date of Evaluation: 09/26/18 Time of Evaluation: 09:00 - Subjective Subjective: clinically same Objective - Vital Signs/Intake and Output Vital Signs (last 24 hours): Temp Pulse Resp BP Pulse Ox 98.4 F 104 H 20 162/84 H 97 09/26/18 15:32 09/26/18 16:00 09/26/18 15:32 09/26/18 15:32 09/26/18 15:32 - Medications Medications: Current Medications Acyclovir (Zovirax 5% Oint) 1 gm EXT Q3H [facility] Last Admin: 09/26/18 18:54 Dose: 1 units Albuterol/Ipratropium (Duoneb 3 Mg/0.5 Mg (3 Ml) Ud) 3 ml INH RQ6 [facility] Last Admin: 09/26/18 13:50 Dose: Not Given Amlodipine Besylate (Norvasc) 5 mg PO DAILY [facility] Last Admin: 09/26/18 12:00 Dose: 5 mg Calcium Acetate (Phoslo) 667 mg PO TID [facility] Last Admin: 09/26/18 17:49 Dose: 667 mg Clonidine HCl (Catapres) 0.3 mg PO BID [facility] Last Admin: 09/26/18 17:48 Dose: 0.3 mg Dextrose (Dextrose 50% Inj) 0 ml IV STAT PRN; Protocol PRN Reason: Hypoglycemia Protocol Dextrose (Glutose 15) 0 gm PO ONCE PRN; Protocol PRN Reason: Hypoglycemia Protocol Diphenhydramine HCl (Benadryl) 25 mg PO Q4H PRN PRN Reason: Itching / Pruritus Last Admin: 09/26/18 17:48 Dose: 25 mg Docusate Sodium (Colace) 100 mg PO TID [facility] Last Admin: 09/26/18 17:48 Dose: 100 mg Ergocalciferol (Drisdol 50,000 Intl Units Cap) 1 cap PO Q7D [facility] Last Admin: 09/25/18 09:56 Dose: 1 cap Ferric Sodium Gluconate Complex (Ferrlecit) 125 mg IVPB DAILY [facility] Stop: 10/03/18 10:46 Last Admin: 09/26/18 09:15 Dose: 125 mg Gabapentin (Neurontin) 300 mg PO BID [facility] Last Admin: 09/26/18 17:48 Dose: 300 mg Glucagon (Glucagen Diagnostic Kit) 0 mg IM STAT PRN; Protocol PRN Reason: Hypoglycemia Protocol Heparin Sodium (Porcine) (Heparin) 5,000 units SC Q12H [facility] Last Admin: 09/26/18 12:29 Dose: Not Given Hydromorphone HCl (Dilaudid) 2 mg IVP Q4H PRN PRN Reason: Pain, severe (8-10) Last Admin: 09/26/18 17:49 Dose: 2 mg Dextrose (Dextrose 5% In Water 1000 Ml) 1,000 mls @ 0 mls/hr IV .Q0M PRN; Protocol PRN Reason: Hypoglycemia Protocol Insulin Glargine (Lantus) 25 unit SC HS [facility] Last Admin: 09/25/18 21:25 Dose: 25 units Insulin Human Regular (Novolin R) 0 unit SC ACHS [facility]; Protocol Last Admin: 09/26/18 17:49 Dose: 3 unit Ondansetron HCl (Zofran Tab) 8 mg PO Q8H [facility] Last Admin: 09/26/18 16:49 Dose: Not Given Pantoprazole Sodium (Protonix Ec Tab) 40 mg PO DAILY [facility] Last Admin: 09/26/18 09:15 Dose: 40 mg Sucralfate (Carafate Oral Susp) 1 gm PO QID [facility] Last Admin: 09/26/18 17:48 Dose: 1 gm - Labs Labs: 09/24/18 21:37 09/24/18 21:37 PT 11.9 SECONDS (9.7-12.2) 09/25/18 12:04 INR 1.1 09/25/18 12:04 APTT 32 SECONDS (21-34) D 09/25/18 12:04 - Constitutional Appears: Well - Head Exam Head Exam: ATRAUMATIC, NORMAL INSPECTION, NORMOCEPHALIC - Eye Exam Eye Exam: EOMI, Normal appearance, PERRL Pupil Exam: NORMAL ACCOMODATION, PERRL - ENT Exam ENT Exam: Mucous Membranes Moist, Normal Exam - Neck Exam Neck Exam: Full ROM, Normal Inspection. absent: Lymphadenopathy - Respiratory Exam Respiratory Exam: Decreased Breath Sounds - Cardiovascular Exam Cardiovascular Exam: REGULAR RHYTHM, +S1, +S2 - GI/Abdominal Exam GI & Abdominal Exam: Soft, Diminished Bowel Sounds - Rectal Exam Rectal Exam: Deferred
[2018-09-26] MEDS: (Lantus) Insulin Glargine, Recombinant SC SCH (21:40)
--- NOTE | 2018-09-26 22:00 | CARD ---
APPROVED REPORT Date of service: 09/24/2018 EKG Measurement Heart [id number] <Conclusion> Normal sinus rhythm Nonspecific ST and T wave abnormality Prolonged QT Abnormal ECG
[2018-09-27] MEDS: Acyclovir 5% Oint (15 gm) EXT SCH ×5 (01:35→14:07)
[2018-09-27] MEDS: Albuterol-Ipratrop 3 mg / 0.5 (3 ml) UD INH SCH ×4 (01:35→19:35)
[2018-09-27] MEDS: HYDROmorphone 1 mg/ml ISec IVP PRN ×6 (01:42→22:09)
[2018-09-27] MEDS ORDERED: Albuterol-Ipratrop 3 mg / 0.5 (3 ml) UD INH STA (03:59)
[2018-09-27] MEDS: (Novolin R) Insulin Human Regular 100 units/ml vial SC SCH ×3 (07:25→17:20)
[2018-09-27] MEDS: Epoetin Alfa 10,000 unit/ml Dialysis IV SCH (09:51)
[2018-09-27] MEDS: Ferric Sodium Gluconat Complex 62.5 mg/5 ml Vial IVPB SCH (09:52)
[2018-09-27] MEDS: Sucralfate 1 gm/10 ml Oral Susp UD PO SCH ×4 (10:00→22:18)
[2018-09-27] MEDS: Pantoprazole 40 mg EC Tab PO SCH (10:05)
[2018-09-27 10:07] LABS: BASO # 0.1 K/uL (0.0-0.2); EOS # 0.9 K/uL (0.0-0.7); EOS % 12.2 % (0.0-4.0); HEMOGLOBIN 7.3 g/dL (11.0-16.0); LYMPH # 1.2 K/uL (1.0-4.3); LYMPH % 16.7 % (20.0-40.0); MEAN CELL VOLUME 99.6 fL (81.0-99.0); MEAN CORPUSCULAR HEMOGLOBIN 31.3 pg (27.0-31.0); MEAN CORPUSCULAR HGB CONC 31.5 g/dL (33.0-37.0); MEAN PLATELET VOLUME 7.2 fL (7.2-11.7); MONO # 0.5 K/uL (0.0-0.8); MONO % 7.3 % (0.0-10.0); NEUT # 4.5 K/uL (1.8-7.0); NEUT % 62.8 % (50.0-75.0); RBC 2.33 Mil/uL (3.80-5.20); RED CELL DISTRIBUTION WIDTH 17.4 % (11.5-14.5); WHITE BLOOD COUNT 7.2 K/uL (4.8-10.8)
[2018-09-27 10:27] LABS: ALB/GLOB RATIO 1.4 (1.0-2.1); ALBUMIN 4.2 g/dL (3.5-5.0); CALCIUM 8.5 mg/dl (8.6-10.4)
--- NOTE | 2018-09-27 17:51 | CP.PCM.PN ---
Subjective - Date & Time of Evaluation Date of Evaluation: 09/27/18 Time of Evaluation: 08:00 - Subjective Subjective: c/o swelling no fever less sob HD planned for am Objective - Vital Signs/Intake and Output Vital Signs (last 24 hours): Temp Pulse Resp BP Pulse Ox 98.9 F 105 H 18 133/84 100 09/27/18 15:00 09/27/18 16:11 09/27/18 15:00 09/27/18 15:00 09/27/18 15:00 - Medications Medications: Current Medications Acyclovir (Zovirax 5% Oint) 1 gm EXT Q3H [facility] Last Admin: 09/27/18 14:07 Dose: 1 units Albuterol/Ipratropium (Duoneb 3 Mg/0.5 Mg (3 Ml) Ud) 3 ml INH RQ6 [facility] Last Admin: 09/27/18 13:30 Dose: 3 ml Amlodipine Besylate (Norvasc) 5 mg PO DAILY [facility] Last Admin: 09/27/18 10:20 Dose: Not Given Calcium Acetate (Phoslo) 667 mg PO TID [facility] Last Admin: 09/27/18 17:43 Dose: 667 mg Clonidine HCl (Catapres) 0.3 mg PO BID [facility] Last Admin: 09/27/18 17:45 Dose: 0.3 mg Dextrose (Dextrose 50% Inj) 0 ml IV STAT PRN; Protocol PRN Reason: Hypoglycemia Protocol Dextrose (Glutose 15) 0 gm PO ONCE PRN; Protocol PRN Reason: Hypoglycemia Protocol Diphenhydramine HCl (Benadryl) 25 mg PO Q4H PRN PRN Reason: Itching / Pruritus Last Admin: 09/27/18 14:04 Dose: 25 mg Docusate Sodium (Colace) 100 mg PO TID [facility] Last Admin: 09/27/18 17:43 Dose: 100 mg Epoetin James (Procrit) 10,000 unit IV MWF [facility] Last Admin: 09/27/18 09:51 Dose: 10,000 unit Ergocalciferol (Drisdol 50,000 Intl Units Cap) 1 cap PO Q7D [facility] Last Admin: 09/25/18 09:56 Dose: 1 cap Ferric Sodium Gluconate Complex (Ferrlecit) 125 mg IVPB DAILY [facility] Stop: 10/03/18 10:46 Last Admin: 09/27/18 09:52 Dose: 125 mg Gabapentin (Neurontin) 300 mg PO BID [facility] Last Admin: 09/27/18 17:43 Dose: 300 mg Glucagon (Glucagen Diagnostic Kit) 0 mg IM STAT PRN; Protocol PRN Reason: Hypoglycemia Protocol Heparin Sodium (Porcine) (Heparin) 5,000 units SC Q12H [facility] Last Admin: 09/27/18 12:20 Dose: Not Given Hydromorphone HCl (Dilaudid) 2 mg IVP Q4H PRN PRN Reason: Pain, severe (8-10) Last Admin: 09/27/18 14:07 Dose: 2 mg Dextrose (Dextrose 5% In Water 1000 Ml) 1,000 mls @ 0 mls/hr IV .Q0M PRN; Protocol PRN Reason: Hypoglycemia Protocol Insulin Glargine (Lantus) 25 unit SC HS [facility] Last Admin: 09/26/18 21:40 Dose: 25 units Insulin Human Regular (Novolin R) 0 unit SC ACHS [facility]; Protocol Last Admin: 09/27/18 17:20 Dose: Not Given Ondansetron HCl (Zofran Tab) 8 mg PO Q8H [facility] Last Admin: 09/27/18 17:43 Dose: 8 mg Pantoprazole Sodium (Protonix Ec Tab) 40 mg PO DAILY [facility] Last Admin: 09/27/18 10:05 Dose: Not Given Sucralfate (Carafate Oral Susp) 1 gm PO QID [facility] Last Admin: 09/27/18 17:42 Dose: 1 gm - Labs Labs: 09/27/18 10:02 09/27/18 10:02 PT 11.9 SECONDS (9.7-12.2) 09/25/18 12:04 INR 1.1 09/25/18 12:04 APTT 32 SECONDS (21-34) D 09/25/18 12:04 - Constitutional Appears: Well - Head Exam Head Exam: ATRAUMATIC, NORMAL INSPECTION, NORMOCEPHALIC - Eye Exam Eye Exam: EOMI, Normal appearance, PERRL Pupil Exam: NORMAL ACCOMODATION, PERRL - ENT Exam ENT Exam: Mucous Membranes Moist, Normal Exam - Neck Exam Neck Exam: Full ROM, Normal Inspection. absent: Lymphadenopathy - Respiratory Exam Respiratory Exam: Clear to Ausculation Bilateral, NORMAL BREATHING PATTERN - Cardiovascular Exam Cardiovascular Exam: REGULAR RHYTHM, +S1, +S2. absent: Murmur - GI/Abdominal Exam GI & Abdominal Exam: Soft, Normal Bowel Sounds. absent: Tenderness - Rectal Exam Rectal Exam: Deferred - Exam Exam: NORMAL INSPECTION - Extremities Exam Extremities Exam: Full ROM, Normal Capillary Refill, Normal Inspection. absent: Joint Swelling, Pedal Edema - Back Exam Back Exam: NORMAL INSPECTION - Neurological Exam Neurological Exam: Alert, Awake, CN II-XII Intact, Normal Gait, Oriented x3 - Psychiatric Exam Psychiatric exam: Normal Affect, Normal Mood - Skin Skin Exam: Dry, Intact, Normal Color, Warm Assessment and Plan - Assessment and Plan (Free Text) Plan: resolving fluid overload state no infection so far await final cultures cont to follow discussed with Dr Sexton
--- NOTE | 2018-09-27 18:37 | CP.PCM.PN ---
Subjective - Date & Time of Evaluation Date of Evaluation: 09/27/18 Time of Evaluation: 08:45 - Subjective Subjective: clinically same Objective - Vital Signs/Intake and Output Vital Signs (last 24 hours): Temp Pulse Resp BP Pulse Ox 98.9 F 105 H 18 133/84 100 09/27/18 15:00 09/27/18 16:11 09/27/18 15:00 09/27/18 15:00 09/27/18 15:00 - Medications Medications: Current Medications Acyclovir (Zovirax 5% Oint) 1 gm EXT Q3H [facility] Last Admin: 09/27/18 14:07 Dose: 1 units Albuterol/Ipratropium (Duoneb 3 Mg/0.5 Mg (3 Ml) Ud) 3 ml INH RQ6 [facility] Last Admin: 09/27/18 13:30 Dose: 3 ml Amlodipine Besylate (Norvasc) 5 mg PO DAILY [facility] Last Admin: 09/27/18 10:20 Dose: Not Given Calcium Acetate (Phoslo) 667 mg PO TID [facility] Last Admin: 09/27/18 17:43 Dose: 667 mg Clonidine HCl (Catapres) 0.3 mg PO BID [facility] Last Admin: 09/27/18 17:45 Dose: 0.3 mg Dextrose (Dextrose 50% Inj) 0 ml IV STAT PRN; Protocol PRN Reason: Hypoglycemia Protocol Dextrose (Glutose 15) 0 gm PO ONCE PRN; Protocol PRN Reason: Hypoglycemia Protocol Diphenhydramine HCl (Benadryl) 25 mg PO Q4H PRN PRN Reason: Itching / Pruritus Last Admin: 09/27/18 18:09 Dose: 25 mg Docusate Sodium (Colace) 100 mg PO TID [facility] Last Admin: 09/27/18 17:43 Dose: 100 mg Epoetin James (Procrit) 10,000 unit IV MWF [facility] Last Admin: 09/27/18 09:51 Dose: 10,000 unit Ergocalciferol (Drisdol 50,000 Intl Units Cap) 1 cap PO Q7D [facility] Last Admin: 09/25/18 09:56 Dose: 1 cap Ferric Sodium Gluconate Complex (Ferrlecit) 125 mg IVPB DAILY [facility] Stop: 10/03/18 10:46 Last Admin: 09/27/18 09:52 Dose: 125 mg Gabapentin (Neurontin) 300 mg PO BID [facility] Last Admin: 09/27/18 17:43 Dose: 300 mg Glucagon (Glucagen Diagnostic Kit) 0 mg IM STAT PRN; Protocol PRN Reason: Hypoglycemia Protocol Heparin Sodium (Porcine) (Heparin) 5,000 units SC Q12H [facility] Last Admin: 09/27/18 12:20 Dose: Not Given Hydromorphone HCl (Dilaudid) 2 mg IVP Q4H PRN PRN Reason: Pain, severe (8-10) Last Admin: 09/27/18 18:09 Dose: 2 mg Dextrose (Dextrose 5% In Water 1000 Ml) 1,000 mls @ 0 mls/hr IV .Q0M PRN; Protocol PRN Reason: Hypoglycemia Protocol Insulin Glargine (Lantus) 25 unit SC HS [facility] Last Admin: 09/26/18 21:40 Dose: 25 units Insulin Human Regular (Novolin R) 0 unit SC ACHS [facility]; Protocol Last Admin: 09/27/18 17:20 Dose: Not Given Ondansetron HCl (Zofran Tab) 8 mg PO Q8H [facility] Last Admin: 09/27/18 17:43 Dose: 8 mg Pantoprazole Sodium (Protonix Ec Tab) 40 mg PO DAILY [facility] Last Admin: 09/27/18 10:05 Dose: Not Given Sucralfate (Carafate Oral Susp) 1 gm PO QID [facility] Last Admin: 09/27/18 17:42 Dose: 1 gm - Labs Labs: 09/27/18 10:02 09/27/18 10:02 PT 11.9 SECONDS (9.7-12.2) 09/25/18 12:04 INR 1.1 09/25/18 12:04 APTT 32 SECONDS (21-34) D 09/25/18 12:04 - Constitutional Appears: Well - Head Exam Head Exam: ATRAUMATIC, NORMAL INSPECTION, NORMOCEPHALIC - Eye Exam Eye Exam: EOMI, Normal appearance, PERRL Pupil Exam: NORMAL ACCOMODATION, PERRL - ENT Exam ENT Exam: Mucous Membranes Moist, Normal Exam - Neck Exam Neck Exam: Full ROM, Normal Inspection. absent: Lymphadenopathy - Respiratory Exam Respiratory Exam: Decreased Breath Sounds - Cardiovascular Exam Cardiovascular Exam: REGULAR RHYTHM, +S1, +S2 - GI/Abdominal Exam GI & Abdominal Exam: Soft, Diminished Bowel Sounds - Rectal Exam Rectal Exam: Deferred
[2018-09-28] MEDS: Acyclovir 5% Oint (15 gm) EXT SCH ×7 (01:15→19:52)
[2018-09-28] MEDS: HYDROmorphone 1 mg/ml ISec IVP PRN (02:09)
[2018-09-28] MEDS: Albuterol-Ipratrop 3 mg / 0.5 (3 ml) UD INH SCH ×3 (02:54→14:05)
--- NOTE | 2018-09-28 07:26 | CP.PCM.PN ---
Subjective - Date & Time of Evaluation Date of Evaluation: 09/27/18 Time of Evaluation: 15:00 - Subjective Subjective: SEEN ON RENAL F/U RECIEVED HER HD EARLIAR TODAY WITH UF 4 L FEELS LITTLE BETTER FOR ANOTHER HD IN AM SAT ALL PREVIOUS EMR REVIEWED Objective - Vital Signs/Intake and Output Vital Signs (last 24 hours): Temp Pulse Resp BP Pulse Ox 98.9 F 103 H 20 144/85 100 09/27/18 23:28 09/28/18 00:05 09/27/18 23:28 09/27/18 23:28 09/27/18 23:28 - Medications Medications: Current Medications Acyclovir (Zovirax 5% Oint) 1 gm EXT Q3H [facility] Last Admin: 09/28/18 04:57 Dose: 1 units Albuterol/Ipratropium (Duoneb 3 Mg/0.5 Mg (3 Ml) Ud) 3 ml INH RQ6 [facility] Last Admin: 09/28/18 02:54 Dose: 3 ml Amlodipine Besylate (Norvasc) 5 mg PO DAILY [facility] Last Admin: 09/27/18 10:20 Dose: Not Given Calcium Acetate (Phoslo) 667 mg PO TID [facility] Last Admin: 09/27/18 17:43 Dose: 667 mg Clonidine HCl (Catapres) 0.3 mg PO BID [facility] Last Admin: 09/27/18 17:45 Dose: 0.3 mg Dextrose (Dextrose 50% Inj) 0 ml IV STAT PRN; Protocol PRN Reason: Hypoglycemia Protocol Dextrose (Glutose 15) 0 gm PO ONCE PRN; Protocol PRN Reason: Hypoglycemia Protocol Diphenhydramine HCl (Benadryl) 25 mg PO Q4H PRN PRN Reason: Itching / Pruritus Last Admin: 09/28/18 06:11 Dose: 25 mg Docusate Sodium (Colace) 100 mg PO TID [facility] Last Admin: 09/27/18 17:43 Dose: 100 mg Epoetin James (Procrit) 10,000 unit IV MWF [facility] Last Admin: 09/27/18 09:51 Dose: 10,000 unit Ergocalciferol (Drisdol 50,000 Intl Units Cap) 1 cap PO Q7D [facility] Last Admin: 09/25/18 09:56 Dose: 1 cap Ferric Sodium Gluconate Complex (Ferrlecit) 125 mg IVPB DAILY [facility] Stop: 10/03/18 10:46 Last Admin: 09/27/18 09:52 Dose: 125 mg Gabapentin (Neurontin) 300 mg PO BID [facility] Last Admin: 09/27/18 17:43 Dose: 300 mg Glucagon (Glucagen Diagnostic Kit) 0 mg IM STAT PRN; Protocol PRN Reason: Hypoglycemia Protocol Hydromorphone HCl (Dilaudid) 2 mg IVP Q4H PRN PRN Reason: Pain, severe (8-10) Last Admin: 09/28/18 06:11 Dose: 2 mg Insulin Glargine (Lantus) 25 unit SC HS [facility] Last Admin: 09/26/18 21:40 Dose: 25 units Insulin Human Regular (Novolin R) 0 unit SC ACHS [facility]; Protocol Last Admin: 09/27/18 17:20 Dose: Not Given Ondansetron HCl (Zofran Tab) 8 mg PO Q8H [facility] Last Admin: 09/28/18 01:15 Dose: Not Given Pantoprazole Sodium (Protonix Ec Tab) 40 mg PO DAILY [facility] Last Admin: 09/27/18 10:05 Dose: Not Given Sucralfate (Carafate Oral Susp) 1 gm PO QID [facility] Last Admin: 09/27/18 22:18 Dose: 1 gm - Labs Labs: 09/27/18 10:02 09/27/18 10:02 PT 11.9 SECONDS (9.7-12.2) 09/25/18 12:04 INR 1.1 09/25/18 12:04 APTT 32 SECONDS (21-34) D 09/25/18 12:04 Assessment and Plan - Assessment and Plan (Free Text) Assessment: ESRD ON HD M W F AND SAT ANEMIA OF CKD .. G/G STABLE MMP P : C/O PRESENT CARE C/O CURRENT MANAGEMENT C/O SAME MEDS
[2018-09-28] MEDS: (Novolin R) Insulin Human Regular 100 units/ml vial SC SCH ×4 (08:30→22:27)
[2018-09-28] MEDS: Ferric Sodium Gluconat Complex 62.5 mg/5 ml Vial IVPB SCH (10:07)
[2018-09-28] MEDS: Pantoprazole 40 mg EC Tab PO SCH (10:14)
[2018-09-28] MEDS: Sucralfate 1 gm/10 ml Oral Susp UD PO SCH ×4 (10:14→22:26)
--- NOTE | 2018-09-28 17:44 | RAD ---
Date of service: 09/28/2018 HISTORY: r/o pneumonia COMPARISON: Comparison is made with 09/24/2018 TECHNIQUE: Chest PA and lateral FINDINGS: LUNGS: [id number] pulmonary vascular congestion is again noted. PLEURA: No significant pleural effusion identified. No pneumothorax apparent. CARDIOVASCULAR: No aortic atherosclerotic calcification present. Normal cardiac size. Moderate pulmonary vascular congestion. OSSEOUS STRUCTURES: No significant abnormalities. VISUALIZED UPPER ABDOMEN: Normal. OTHER FINDINGS: Right-sided Infusaport is again seen in place. IMPRESSION: No significant interval changes noted since the prior study as discussed above.
--- NOTE | 2018-09-28 18:21 | CP.PCM.PN ---
Subjective - Date & Time of Evaluation Date of Evaluation: 09/28/18 Time of Evaluation: 08:45 - Subjective Subjective: clinically same Objective - Vital Signs/Intake and Output Vital Signs (last 24 hours): Temp Pulse Resp BP Pulse Ox 98.2 F 100 H 18 156/86 H 100 09/28/18 14:05 09/28/18 15:59 09/28/18 14:05 09/28/18 17:45 09/28/18 14:05 Intake and Output: 09/28/18 09/28/18 06:59 18:59 Intake Total 240 Output Total 0 Balance 240 - Medications Medications: Current Medications Acyclovir (Zovirax 5% Oint) 1 gm EXT Q3H [facility] Last Admin: 09/28/18 17:21 Dose: Not Given Albuterol/Ipratropium (Duoneb 3 Mg/0.5 Mg (3 Ml) Ud) 3 ml INH RQ6 [facility] Last Admin: 09/28/18 14:05 Dose: Not Given Amlodipine Besylate (Norvasc) 5 mg PO DAILY [facility] Last Admin: 09/28/18 10:14 Dose: Not Given Calcium Acetate (Phoslo) 667 mg PO TID [facility] Last Admin: 09/28/18 14:02 Dose: Not Given Carvedilol (Coreg) 3.125 mg PO BID [facility] Clonidine HCl (Catapres) 0.3 mg PO BID [facility] Last Admin: 09/28/18 10:14 Dose: Not Given Dextrose (Dextrose 50% Inj) 0 ml IV STAT PRN; Protocol PRN Reason: Hypoglycemia Protocol Dextrose (Glutose 15) 0 gm PO ONCE PRN; Protocol PRN Reason: Hypoglycemia Protocol Diphenhydramine HCl (Benadryl) 25 mg PO Q4H PRN PRN Reason: Itching / Pruritus Last Admin: 09/28/18 14:01 Dose: 25 mg Docusate Sodium (Colace) 100 mg PO TID [facility] Last Admin: 09/28/18 14:02 Dose: Not Given Epoetin James (Procrit) 10,000 unit IV MWF [facility] Last Admin: 09/27/18 09:51 Dose: 10,000 unit Ergocalciferol (Drisdol 50,000 Intl Units Cap) 1 cap PO Q7D [facility] Last Admin: 09/25/18 09:56 Dose: 1 cap Ferric Sodium Gluconate Complex (Ferrlecit) 125 mg IVPB DAILY [facility] Stop: 10/03/18 10:46 Last Admin: 09/27/18 09:52 Dose: 125 mg Gabapentin (Neurontin) 300 mg PO BID [facility] Last Admin: 09/28/18 10:14 Dose: Not Given Glucagon (Glucagen Diagnostic Kit) 0 mg IM STAT PRN; Protocol PRN Reason: Hypoglycemia Protocol Guaifenesin (Mucinex La) 600 mg PO Q12H [facility] Hydromorphone HCl (Dilaudid) 2 mg IVP Q4H PRN PRN Reason: Pain, severe (8-10) Last Admin: 09/28/18 14:01 Dose: 2 mg Ceftriaxone Sodium 1 gm/ (Sodium Chloride) 100 mls @ 100 mls/hr IVPB DAILY [facility]; Protocol Insulin Glargine (Lantus) 25 unit SC HS [facility] Last Admin: 09/26/18 21:40 Dose: 25 units Insulin Human Regular (Novolin R) 0 unit SC ACHS [facility]; Protocol Last Admin: 09/28/18 17:30 Dose: Not Given Ondansetron HCl (Zofran Tab) 8 mg PO Q8H [facility] Last Admin: 09/28/18 17:21 Dose: Not Given Pantoprazole Sodium (Protonix Ec Tab) 40 mg PO DAILY [facility] Last Admin: 09/28/18 10:14 Dose: Not Given Sucralfate (Carafate Oral Susp) 1 gm PO QID [facility] Last Admin: 09/28/18 14:02 Dose: Not Given - Labs Labs: 09/27/18 10:02 09/27/18 10:02 PT 11.9 SECONDS (9.7-12.2) 09/25/18 12:04 INR 1.1 09/25/18 12:04 APTT 32 SECONDS (21-34) D 09/25/18 12:04 - Constitutional Appears: Well - Head Exam Head Exam: ATRAUMATIC, NORMAL INSPECTION, NORMOCEPHALIC - Eye Exam Eye Exam: EOMI, Normal appearance, PERRL Pupil Exam: NORMAL ACCOMODATION, PERRL - ENT Exam ENT Exam: Mucous Membranes Moist, Normal Exam - Neck Exam Neck Exam: Full ROM, Normal Inspection. absent: Lymphadenopathy - Respiratory Exam Respiratory Exam: Decreased Breath Sounds - Cardiovascular Exam Cardiovascular Exam: REGULAR RHYTHM, +S1, +S2 - GI/Abdominal Exam GI & Abdominal Exam: Soft, Diminished Bowel Sounds - Rectal Exam Rectal Exam: Deferred
[2018-09-28] MEDS: guaiFENesin 600 mg ER Tab PO SCH (19:18)
[2018-09-28] MEDS: (Lantus) Insulin Glargine, Recombinant SC SCH (22:26)
[2018-09-29] MEDS: Acyclovir 5% Oint (15 gm) EXT SCH ×9 (00:07→21:35)
[2018-09-29] MEDS: Albuterol-Ipratrop 3 mg / 0.5 (3 ml) UD INH SCH ×4 (03:04→19:48)
[2018-09-29] MEDS: guaiFENesin 600 mg ER Tab PO SCH ×2 (05:47→18:44)
[2018-09-29] MEDS: (Novolin R) Insulin Human Regular 100 units/ml vial SC SCH ×4 (07:04→21:35)
[2018-09-29] MEDS: Pantoprazole 40 mg EC Tab PO SCH (09:06)
[2018-09-29] MEDS: Sucralfate 1 gm/10 ml Oral Susp UD PO SCH ×4 (09:06→21:47)
[2018-09-29] MEDS: Ferric Sodium Gluconat Complex 62.5 mg/5 ml Vial IVPB SCH (09:07)
--- NOTE | 2018-09-29 10:49 | CP.PCM.PN ---
Subjective - Date & Time of Evaluation Date of Evaluation: 09/28/18 Time of Evaluation: 15:00 - Subjective Subjective: SEEN ON RENAL F/U RECIEVED HER HD TODAY FEELS IMPROVED Objective - Vital Signs/Intake and Output Vital Signs (last 24 hours): Temp Pulse Resp BP Pulse Ox 98.0 F 105 H 20 151/74 H 100 09/29/18 07:00 09/29/18 09:19 09/29/18 07:00 09/29/18 09:19 09/29/18 07:00 - Medications Medications: Current Medications Acyclovir (Zovirax 5% Oint) 1 gm EXT Q3H [facility] Last Admin: 09/29/18 10:45 Dose: Not Given Albuterol/Ipratropium (Duoneb 3 Mg/0.5 Mg (3 Ml) Ud) 3 ml INH RQ6 [facility] Last Admin: 09/29/18 08:16 Dose: 3 ml Amlodipine Besylate (Norvasc) 5 mg PO DAILY [facility] Last Admin: 09/29/18 09:06 Dose: 5 mg Calcium Acetate (Phoslo) 667 mg PO TID [facility] Last Admin: 09/29/18 09:06 Dose: 667 mg Carvedilol (Coreg) 3.125 mg PO BID [facility] Last Admin: 09/29/18 09:05 Dose: 3.125 mg Clonidine HCl (Catapres) 0.3 mg PO BID [facility] Last Admin: 09/29/18 09:11 Dose: 0.3 mg Dextrose (Dextrose 50% Inj) 0 ml IV STAT PRN; Protocol PRN Reason: Hypoglycemia Protocol Dextrose (Glutose 15) 0 gm PO ONCE PRN; Protocol PRN Reason: Hypoglycemia Protocol Diphenhydramine HCl (Benadryl) 25 mg PO Q4H PRN PRN Reason: Itching / Pruritus Last Admin: 09/29/18 08:07 Dose: 25 mg Docusate Sodium (Colace) 100 mg PO TID [facility] Last Admin: 09/29/18 09:06 Dose: 100 mg Epoetin James (Procrit) 10,000 unit IV MWF [facility] Last Admin: 09/27/18 09:51 Dose: 10,000 unit Ergocalciferol (Drisdol 50,000 Intl Units Cap) 1 cap PO Q7D [facility] Last Admin: 09/25/18 09:56 Dose: 1 cap Ferric Sodium Gluconate Complex (Ferrlecit) 125 mg IVPB DAILY [facility] Stop: 10/03/18 10:46 Last Admin: 09/29/18 09:07 Dose: 125 mg Gabapentin (Neurontin) 300 mg PO BID [facility] Last Admin: 09/29/18 09:05 Dose: 300 mg Glucagon (Glucagen Diagnostic Kit) 0 mg IM STAT PRN; Protocol PRN Reason: Hypoglycemia Protocol Guaifenesin (Mucinex La) 600 mg PO Q12H [facility] Last Admin: 09/29/18 05:47 Dose: 600 mg Hydromorphone HCl (Dilaudid) 2 mg IVP Q4H PRN PRN Reason: Pain, severe (8-10) Last Admin: 09/29/18 08:07 Dose: 2 mg Ceftriaxone Sodium 1 gm/ (Sodium Chloride) 100 mls @ 100 mls/hr IVPB DAILY [facility]; Protocol Last Admin: 09/29/18 10:45 Dose: 100 mls/hr Insulin Glargine (Lantus) 25 unit SC HS [facility] Last Admin: 09/28/18 22:26 Dose: 25 units Insulin Human Regular (Novolin R) 0 unit SC ACHS [facility]; Protocol Last Admin: 09/29/18 07:04 Dose: Not Given Ondansetron HCl (Zofran Tab) 8 mg PO Q8H [facility] Last Admin: 09/29/18 09:08 Dose: Not Given Pantoprazole Sodium (Protonix Ec Tab) 40 mg PO DAILY [facility] Last Admin: 09/29/18 09:06 Dose: 40 mg Sucralfate (Carafate Oral Susp) 1 gm PO QID [facility] Last Admin: 09/29/18 09:06 Dose: 1 gm - Labs Labs: 09/27/18 10:02 09/27/18 10:02 PT 11.9 SECONDS (9.7-12.2) 09/25/18 12:04 INR 1.1 09/25/18 12:04 APTT 32 SECONDS (21-34) D 09/25/18 12:04 Assessment and Plan - Assessment and Plan (Free Text) Assessment: ESRD ON HD M W F AND SAT ANEMIA OF CKD .. H/H STABLE MMP P : C/O CURRENT CARE C/O PRESENT MANEDMENT
--- NOTE | 2018-09-29 12:52 | CP.PCM.PN ---
Subjective - Date & Time of Evaluation Date of Evaluation: 09/29/18 Time of Evaluation: 08:45 - Subjective Subjective: clinically same Objective - Vital Signs/Intake and Output Vital Signs (last 24 hours): Temp Pulse Resp BP Pulse Ox 98.0 F 105 H 20 151/74 H 100 09/29/18 07:00 09/29/18 09:19 09/29/18 07:00 09/29/18 09:19 09/29/18 07:00 - Medications Medications: Current Medications Acyclovir (Zovirax 5% Oint) 1 gm EXT Q3H [facility] Last Admin: 09/29/18 10:45 Dose: Not Given Albuterol/Ipratropium (Duoneb 3 Mg/0.5 Mg (3 Ml) Ud) 3 ml INH RQ6 [facility] Last Admin: 09/29/18 08:16 Dose: 3 ml Amlodipine Besylate (Norvasc) 5 mg PO DAILY [facility] Last Admin: 09/29/18 09:06 Dose: 5 mg Calcium Acetate (Phoslo) 667 mg PO TID [facility] Last Admin: 09/29/18 09:06 Dose: 667 mg Carvedilol (Coreg) 3.125 mg PO BID [facility] Last Admin: 09/29/18 09:05 Dose: 3.125 mg Clonidine HCl (Catapres) 0.3 mg PO BID [facility] Last Admin: 09/29/18 09:11 Dose: 0.3 mg Dextrose (Dextrose 50% Inj) 0 ml IV STAT PRN; Protocol PRN Reason: Hypoglycemia Protocol Dextrose (Glutose 15) 0 gm PO ONCE PRN; Protocol PRN Reason: Hypoglycemia Protocol Diphenhydramine HCl (Benadryl) 25 mg PO Q4H PRN PRN Reason: Itching / Pruritus Last Admin: 09/29/18 12:00 Dose: 25 mg Docusate Sodium (Colace) 100 mg PO TID [facility] Last Admin: 09/29/18 09:06 Dose: 100 mg Epoetin James (Procrit) 10,000 unit IV MWF [facility] Last Admin: 09/27/18 09:51 Dose: 10,000 unit Ergocalciferol (Drisdol 50,000 Intl Units Cap) 1 cap PO Q7D [facility] Last Admin: 09/25/18 09:56 Dose: 1 cap Ferric Sodium Gluconate Complex (Ferrlecit) 125 mg IVPB DAILY [facility] Stop: 10/03/18 10:46 Last Admin: 09/29/18 09:07 Dose: 125 mg Gabapentin (Neurontin) 300 mg PO BID [facility] Last Admin: 09/29/18 09:05 Dose: 300 mg Glucagon (Glucagen Diagnostic Kit) 0 mg IM STAT PRN; Protocol PRN Reason: Hypoglycemia Protocol Guaifenesin (Mucinex La) 600 mg PO Q12H [facility] Last Admin: 09/29/18 05:47 Dose: 600 mg Hydromorphone HCl (Dilaudid) 2 mg IVP Q4H PRN PRN Reason: Pain, severe (8-10) Last Admin: 09/29/18 12:01 Dose: 2 mg Ceftriaxone Sodium 1 gm/ (Sodium Chloride) 100 mls @ 100 mls/hr IVPB DAILY [facility]; Protocol Last Admin: 09/29/18 10:45 Dose: 100 mls/hr Insulin Glargine (Lantus) 25 unit SC HS [facility] Last Admin: 09/28/18 22:26 Dose: 25 units Insulin Human Regular (Novolin R) 0 unit SC ACHS [facility]; Protocol Last Admin: 09/29/18 07:04 Dose: Not Given Ondansetron HCl (Zofran Tab) 8 mg PO Q8H [facility] Last Admin: 09/29/18 09:08 Dose: Not Given Pantoprazole Sodium (Protonix Ec Tab) 40 mg PO DAILY [facility] Last Admin: 09/29/18 09:06 Dose: 40 mg Sucralfate (Carafate Oral Susp) 1 gm PO QID [facility] Last Admin: 09/29/18 09:06 Dose: 1 gm - Labs Labs: 09/27/18 10:02 09/27/18 10:02 PT 11.9 SECONDS (9.7-12.2) 09/25/18 12:04 INR 1.1 09/25/18 12:04 APTT 32 SECONDS (21-34) D 09/25/18 12:04 - Constitutional Appears: Well - Head Exam Head Exam: ATRAUMATIC, NORMAL INSPECTION, NORMOCEPHALIC - Eye Exam Eye Exam: EOMI, Normal appearance, PERRL Pupil Exam: NORMAL ACCOMODATION, PERRL - ENT Exam ENT Exam: Mucous Membranes Moist, Normal Exam - Neck Exam Neck Exam: Full ROM, Normal Inspection. absent: Lymphadenopathy - Respiratory Exam Respiratory Exam: Decreased Breath Sounds - Cardiovascular Exam Cardiovascular Exam: REGULAR RHYTHM, +S1, +S2 - GI/Abdominal Exam GI & Abdominal Exam: Soft, Diminished Bowel Sounds - Rectal Exam Rectal Exam: Deferred
--- NOTE | 2018-09-29 16:18 | CP.PCM.PN ---
Subjective - Date & Time of Evaluation Date of Evaluation: 09/29/18 Time of Evaluation: 10:00 - Subjective Subjective: afebrile growing GNR in sputum Objective - Vital Signs/Intake and Output Vital Signs (last 24 hours): Temp Pulse Resp BP Pulse Ox 98.4 F 75 18 162/91 H 100 09/29/18 15:00 09/29/18 15:00 09/29/18 15:00 09/29/18 15:00 09/29/18 15:00 - Medications Medications: Current Medications Acyclovir (Zovirax 5% Oint) 1 gm EXT Q3H [facility] Last Admin: 09/29/18 13:29 Dose: 1 units Albuterol/Ipratropium (Duoneb 3 Mg/0.5 Mg (3 Ml) Ud) 3 ml INH RQ6 [facility] Last Admin: 09/29/18 13:22 Dose: 3 ml Amlodipine Besylate (Norvasc) 5 mg PO DAILY [facility] Last Admin: 09/29/18 09:06 Dose: 5 mg Calcium Acetate (Phoslo) 667 mg PO TID [facility] Last Admin: 09/29/18 13:28 Dose: 667 mg Carvedilol (Coreg) 3.125 mg PO BID [facility] Last Admin: 09/29/18 09:05 Dose: 3.125 mg Clonidine HCl (Catapres) 0.3 mg PO BID [facility] Last Admin: 09/29/18 09:11 Dose: 0.3 mg Dextrose (Dextrose 50% Inj) 0 ml IV STAT PRN; Protocol PRN Reason: Hypoglycemia Protocol Dextrose (Glutose 15) 0 gm PO ONCE PRN; Protocol PRN Reason: Hypoglycemia Protocol Diphenhydramine HCl (Benadryl) 25 mg PO Q4H PRN PRN Reason: Itching / Pruritus Last Admin: 09/29/18 12:00 Dose: 25 mg Docusate Sodium (Colace) 100 mg PO TID [facility] Last Admin: 09/29/18 13:28 Dose: 100 mg Epoetin James (Procrit) 10,000 unit IV MWF [facility] Last Admin: 09/27/18 09:51 Dose: 10,000 unit Ergocalciferol (Drisdol 50,000 Intl Units Cap) 1 cap PO Q7D [facility] Last Admin: 09/25/18 09:56 Dose: 1 cap Ferric Sodium Gluconate Complex (Ferrlecit) 125 mg IVPB DAILY [facility] Stop: 10/03/18 10:46 Last Admin: 09/29/18 09:07 Dose: 125 mg Gabapentin (Neurontin) 300 mg PO BID [facility] Last Admin: 09/29/18 09:05 Dose: 300 mg Glucagon (Glucagen Diagnostic Kit) 0 mg IM STAT PRN; Protocol PRN Reason: Hypoglycemia Protocol Guaifenesin (Mucinex La) 600 mg PO Q12H [facility] Last Admin: 09/29/18 05:47 Dose: 600 mg Hydromorphone HCl (Dilaudid) 2 mg IVP Q4H PRN PRN Reason: Pain, severe (8-10) Last Admin: 09/29/18 12:01 Dose: 2 mg Ceftriaxone Sodium 1 gm/ (Sodium Chloride) 100 mls @ 100 mls/hr IVPB DAILY [facility]; Protocol Last Admin: 09/29/18 10:45 Dose: 100 mls/hr Insulin Glargine (Lantus) 25 unit SC HS [facility] Last Admin: 09/28/18 22:26 Dose: 25 units Insulin Human Regular (Novolin R) 0 unit SC ACHS [facility]; Protocol Last Admin: 09/29/18 12:28 Dose: 1 unit Ondansetron HCl (Zofran Tab) 8 mg PO Q8H [facility] Last Admin: 09/29/18 09:08 Dose: Not Given Pantoprazole Sodium (Protonix Ec Tab) 40 mg PO DAILY [facility] Last Admin: 09/29/18 09:06 Dose: 40 mg Sucralfate (Carafate Oral Susp) 1 gm PO QID [facility] Last Admin: 09/29/18 13:28 Dose: 1 gm - Labs Labs: 09/27/18 10:02 09/27/18 10:02 PT 11.9 SECONDS (9.7-12.2) 09/25/18 12:04 INR 1.1 09/25/18 12:04 APTT 32 SECONDS (21-34) D 09/25/18 12:04 - Constitutional Appears: Non-toxic, Chronically Ill - Head Exam Head Exam: NORMOCEPHALIC - Eye Exam Eye Exam: absent: Scleral icterus - ENT Exam ENT Exam: Mucous Membranes Dry - Neck Exam Neck Exam: absent: Lymphadenopathy - Respiratory Exam Respiratory Exam: Decreased Breath Sounds - Cardiovascular Exam Cardiovascular Exam: REGULAR RHYTHM - GI/Abdominal Exam GI & Abdominal Exam: Distended, Soft - Rectal Exam Rectal Exam: Deferred - Exam Exam: NORMAL INSPECTION - Extremities Exam Extremities Exam: absent: Pedal Edema - Back Exam Back Exam: absent: CVA tenderness (L), CVA tenderness (R) - Neurological Exam Neurological Exam: Alert, Awake, Oriented x3 - Psychiatric Exam Psychiatric exam: Depressed - Skin Skin Exam: Dry Assessment and Plan - Assessment and Plan (Free Text) Plan: cont iv rocephin
[2018-09-29] MEDS: (Lantus) Insulin Glargine, Recombinant SC SCH (21:47)
[2018-09-30] MEDS: Acyclovir 5% Oint (15 gm) EXT SCH ×7 (02:05→22:14)
[2018-09-30] MEDS: Albuterol-Ipratrop 3 mg / 0.5 (3 ml) UD INH SCH (04:55)
[2018-09-30] MEDS: guaiFENesin 600 mg ER Tab PO SCH ×2 (06:19→18:21)
[2018-09-30] MEDS: (Novolin R) Insulin Human Regular 100 units/ml vial SC SCH ×4 (08:53→21:36)
[2018-09-30] MEDS: Pantoprazole 40 mg EC Tab PO SCH (10:57)
[2018-09-30] MEDS: Sucralfate 1 gm/10 ml Oral Susp UD PO SCH ×4 (10:57→22:10)
[2018-09-30 12:04] LABS: BASO # 0.1 K/uL (0.0-0.2); BASO % 1.2 % (0.0-2.0); EOS # 0.9 K/uL (0.0-0.7); EOS % 11.5 % (0.0-4.0); LYMPH # 1.2 K/uL (1.0-4.3); LYMPH % 15.1 % (20.0-40.0); MEAN CELL VOLUME 99.6 fL (81.0-99.0); MEAN CORPUSCULAR HEMOGLOBIN 32.2 pg (27.0-31.0); MEAN CORPUSCULAR HGB CONC 32.3 g/dL (33.0-37.0); MEAN PLATELET VOLUME 7.8 fL (7.2-11.7); MONO # 0.6 K/uL (0.0-0.8); MONO % 7.8 % (0.0-10.0); NEUT # 5.2 K/uL (1.8-7.0); NEUT % 64.4 % (50.0-75.0); RBC 2.48 Mil/uL (3.80-5.20); RED CELL DISTRIBUTION WIDTH 17.4 % (11.5-14.5); WHITE BLOOD COUNT 8.1 K/uL (4.8-10.8)
[2018-09-30 12:11] LABS: ALB/GLOB RATIO 1.4 (1.0-2.1); ALBUMIN 4.4 g/dL (3.5-5.0); CALCIUM 8.7 mg/dl (8.6-10.4)
[2018-09-30] MEDS: Ferric Sodium Gluconat Complex 62.5 mg/5 ml Vial IVPB SCH (12:20)
[2018-09-30] MEDS: Epoetin Alfa 10,000 unit/ml Dialysis IV SCH (12:21)
--- NOTE | 2018-09-30 13:37 | CP.PCM.PN ---
Subjective - Date & Time of Evaluation Date of Evaluation: 09/30/18 Time of Evaluation: 09:00 - Subjective Subjective: no fever Objective - Vital Signs/Intake and Output Vital Signs (last 24 hours): Temp Pulse Resp BP Pulse Ox 97.9 F 99 H 20 192/111 H 100 09/30/18 11:30 09/30/18 11:30 09/30/18 11:30 09/30/18 12:30 09/30/18 11:30 - Medications Medications: Current Medications Acyclovir (Zovirax 5% Oint) 1 gm EXT Q3H [facility] Last Admin: 09/30/18 10:57 Dose: Not Given Amlodipine Besylate (Norvasc) 5 mg PO DAILY [facility] Last Admin: 09/30/18 09:44 Dose: Not Given Calcium Acetate (Phoslo) 667 mg PO TID [facility] Last Admin: 09/30/18 10:57 Dose: Not Given Carvedilol (Coreg) 3.125 mg PO BID [facility] Last Admin: 09/30/18 09:44 Dose: Not Given Clonidine HCl (Catapres) 0.3 mg PO BID [facility] Last Admin: 09/30/18 10:57 Dose: Not Given Dextrose (Dextrose 50% Inj) 0 ml IV STAT PRN; Protocol PRN Reason: Hypoglycemia Protocol Dextrose (Glutose 15) 0 gm PO ONCE PRN; Protocol PRN Reason: Hypoglycemia Protocol Diphenhydramine HCl (Benadryl) 25 mg PO Q4H PRN PRN Reason: Itching / Pruritus Last Admin: 09/30/18 05:56 Dose: 25 mg Docusate Sodium (Colace) 100 mg PO TID [facility] Last Admin: 09/30/18 10:57 Dose: Not Given Epoetin James (Procrit) 10,000 unit IV MWF [facility] Last Admin: 09/30/18 12:21 Dose: 10,000 unit Ergocalciferol (Drisdol 50,000 Intl Units Cap) 1 cap PO Q7D [facility] Last Admin: 09/25/18 09:56 Dose: 1 cap Ferric Sodium Gluconate Complex (Ferrlecit) 125 mg IVPB DAILY [facility] Stop: 10/03/18 10:46 Last Admin: 09/30/18 12:20 Dose: 125 mg Gabapentin (Neurontin) 300 mg PO BID [facility] Last Admin: 09/30/18 10:57 Dose: Not Given Glucagon (Glucagen Diagnostic Kit) 0 mg IM STAT PRN; Protocol PRN Reason: Hypoglycemia Protocol Guaifenesin (Mucinex La) 600 mg PO Q12H [facility] Last Admin: 09/30/18 06:19 Dose: 600 mg Hydromorphone HCl (Dilaudid) 2 mg IVP Q4H PRN PRN Reason: Pain, severe (8-10) Last Admin: 09/30/18 08:02 Dose: 2 mg Ceftriaxone Sodium 1 gm/ (Sodium Chloride) 100 mls @ 100 mls/hr IVPB DAILY [facility]; Protocol Last Admin: 09/29/18 10:45 Dose: 100 mls/hr Insulin Glargine (Lantus) 25 unit SC HS [facility] Last Admin: 09/29/18 21:47 Dose: 25 units Insulin Human Regular (Novolin R) 0 unit SC ACHS [facility]; Protocol Last Admin: 09/30/18 11:36 Dose: Not Given Ondansetron HCl (Zofran Tab) 8 mg PO Q8H [facility] Last Admin: 09/30/18 10:57 Dose: Not Given Pantoprazole Sodium (Protonix Ec Tab) 40 mg PO DAILY [facility] Last Admin: 09/30/18 10:57 Dose: Not Given Sucralfate (Carafate Oral Susp) 1 gm PO QID [facility] Last Admin: 09/30/18 10:57 Dose: Not Given - Labs Labs: 09/30/18 11:47 09/30/18 11:47 PT 11.9 SECONDS (9.7-12.2) 09/25/18 12:04 INR 1.1 09/25/18 12:04 APTT 32 SECONDS (21-34) D 09/25/18 12:04 - Constitutional Appears: Non-toxic - Head Exam Head Exam: ATRAUMATIC, NORMAL INSPECTION, NORMOCEPHALIC - Eye Exam Eye Exam: EOMI, Normal appearance, PERRL Pupil Exam: NORMAL ACCOMODATION, PERRL - ENT Exam ENT Exam: Mucous Membranes Moist, Normal Exam - Neck Exam Neck Exam: Full ROM, Normal Inspection. absent: Lymphadenopathy - Respiratory Exam Respiratory Exam: Clear to Ausculation Bilateral, NORMAL BREATHING PATTERN - Cardiovascular Exam Cardiovascular Exam: REGULAR RHYTHM, +S1, +S2. absent: Murmur - GI/Abdominal Exam GI & Abdominal Exam: Soft, Normal Bowel Sounds. absent: Tenderness - Rectal Exam Rectal Exam: Deferred - Extremities Exam Extremities Exam: Full ROM, Normal Capillary Refill, Normal Inspection. absent: Joint Swelling, Pedal Edema - Back Exam Back Exam: NORMAL INSPECTION - Neurological Exam Neurological Exam: Alert, Awake, CN II-XII Intact, Normal Gait, Oriented x3 - Psychiatric Exam Psychiatric exam: Normal Affect, Normal Mood - Skin Skin Exam: Dry, Intact, Normal Color, Warm Assessment and Plan - Assessment and Plan (Free Text) Plan: cont iv rocephin
--- NOTE | 2018-09-30 14:16 | CP.PCM.PN ---
Subjective - Date & Time of Evaluation Date of Evaluation: 09/30/18 Time of Evaluation: 09:30 - Subjective Subjective: clinically same Objective - Vital Signs/Intake and Output Vital Signs (last 24 hours): Temp Pulse Resp BP Pulse Ox 97.9 F 99 H 20 192/111 H 100 09/30/18 11:30 09/30/18 11:30 09/30/18 11:30 09/30/18 12:30 09/30/18 11:30 - Medications Medications: Current Medications Acyclovir (Zovirax 5% Oint) 1 gm EXT Q3H [facility] Last Admin: 09/30/18 10:57 Dose: Not Given Amlodipine Besylate (Norvasc) 5 mg PO DAILY [facility] Last Admin: 09/30/18 09:44 Dose: Not Given Calcium Acetate (Phoslo) 667 mg PO TID [facility] Last Admin: 09/30/18 10:57 Dose: Not Given Carvedilol (Coreg) 3.125 mg PO BID [facility] Last Admin: 09/30/18 09:44 Dose: Not Given Clonidine HCl (Catapres) 0.3 mg PO BID [facility] Last Admin: 09/30/18 10:57 Dose: Not Given Dextrose (Dextrose 50% Inj) 0 ml IV STAT PRN; Protocol PRN Reason: Hypoglycemia Protocol Dextrose (Glutose 15) 0 gm PO ONCE PRN; Protocol PRN Reason: Hypoglycemia Protocol Diphenhydramine HCl (Benadryl) 25 mg PO Q4H PRN PRN Reason: Itching / Pruritus Last Admin: 09/30/18 14:15 Dose: 25 mg Docusate Sodium (Colace) 100 mg PO TID [facility] Last Admin: 09/30/18 10:57 Dose: Not Given Epoetin James (Procrit) 10,000 unit IV MWF [facility] Last Admin: 09/30/18 12:21 Dose: 10,000 unit Ergocalciferol (Drisdol 50,000 Intl Units Cap) 1 cap PO Q7D [facility] Last Admin: 09/25/18 09:56 Dose: 1 cap Ferric Sodium Gluconate Complex (Ferrlecit) 125 mg IVPB DAILY [facility] Stop: 10/03/18 10:46 Last Admin: 09/30/18 12:20 Dose: 125 mg Gabapentin (Neurontin) 300 mg PO BID [facility] Last Admin: 09/30/18 10:57 Dose: Not Given Glucagon (Glucagen Diagnostic Kit) 0 mg IM STAT PRN; Protocol PRN Reason: Hypoglycemia Protocol Guaifenesin (Mucinex La) 600 mg PO Q12H [facility] Last Admin: 09/30/18 06:19 Dose: 600 mg Hydromorphone HCl (Dilaudid) 2 mg IVP Q4H PRN PRN Reason: Pain, severe (8-10) Last Admin: 09/30/18 14:15 Dose: 2 mg Ceftriaxone Sodium 1 gm/ (Sodium Chloride) 100 mls @ 100 mls/hr IVPB DAILY [facility]; Protocol Last Admin: 09/29/18 10:45 Dose: 100 mls/hr Insulin Glargine (Lantus) 25 unit SC HS [facility] Last Admin: 09/29/18 21:47 Dose: 25 units Insulin Human Regular (Novolin R) 0 unit SC ACHS [facility]; Protocol Last Admin: 09/30/18 11:36 Dose: Not Given Ondansetron HCl (Zofran Tab) 8 mg PO Q8H [facility] Last Admin: 09/30/18 10:57 Dose: Not Given Pantoprazole Sodium (Protonix Ec Tab) 40 mg PO DAILY [facility] Last Admin: 09/30/18 10:57 Dose: Not Given Sucralfate (Carafate Oral Susp) 1 gm PO QID [facility] Last Admin: 09/30/18 10:57 Dose: Not Given - Labs Labs: 09/30/18 11:47 09/30/18 11:47 PT 11.9 SECONDS (9.7-12.2) 09/25/18 12:04 INR 1.1 09/25/18 12:04 APTT 32 SECONDS (21-34) D 09/25/18 12:04
--- NOTE | 2018-09-30 19:14 | CP.PCM.PN ---
Subjective - Date & Time of Evaluation Date of Evaluation: 09/30/18 Time of Evaluation: 15:00 - Subjective Subjective: SEEN ON [facility] F/U HAD HER HD TODAY FEELS IMPROVED ALL PREVIOUS EMR REVIEWED Objective - Vital Signs/Intake and Output Vital Signs (last 24 hours): Temp Pulse Resp BP Pulse Ox 97.4 F L 112 H 20 140/74 95 09/30/18 16:48 09/30/18 16:48 09/30/18 16:48 09/30/18 16:48 09/30/18 16:48 Intake and Output: 09/30/18 10/01/18 18:59 06:59 Intake Total 700 Balance 700 - Medications Medications: Current Medications Acyclovir (Zovirax 5% Oint) 1 gm EXT Q3H [facility] Last Admin: 09/30/18 17:45 Dose: Not Given Amlodipine Besylate (Norvasc) 5 mg PO DAILY [facility] Last Admin: 09/30/18 09:44 Dose: Not Given Calcium Acetate (Phoslo) 667 mg PO TID [facility] Last Admin: 09/30/18 18:22 Dose: 667 mg Carvedilol (Coreg) 3.125 mg PO BID [facility] Last Admin: 09/30/18 18:22 Dose: 3.125 mg Clonidine HCl (Catapres) 0.3 mg PO BID [facility] Last Admin: 09/30/18 18:22 Dose: 0.3 mg Dextrose (Dextrose 50% Inj) 0 ml IV STAT PRN; Protocol PRN Reason: Hypoglycemia Protocol Dextrose (Glutose 15) 0 gm PO ONCE PRN; Protocol PRN Reason: Hypoglycemia Protocol Diphenhydramine HCl (Benadryl) 25 mg PO Q4H PRN PRN Reason: Itching / Pruritus Last Admin: 09/30/18 18:21 Dose: 25 mg Docusate Sodium (Colace) 100 mg PO TID [facility] Last Admin: 09/30/18 18:22 Dose: 100 mg Epoetin James (Procrit) 10,000 unit IV MWF [facility] Last Admin: 09/30/18 12:21 Dose: 10,000 unit Ergocalciferol (Drisdol 50,000 Intl Units Cap) 1 cap PO Q7D [facility] Last Admin: 09/25/18 09:56 Dose: 1 cap Ferric Sodium Gluconate Complex (Ferrlecit) 125 mg IVPB DAILY [facility] Stop: 10/03/18 10:46 Last Admin: 09/30/18 12:20 Dose: 125 mg Gabapentin (Neurontin) 300 mg PO BID [facility] Last Admin: 09/30/18 18:21 Dose: 300 mg Glucagon (Glucagen Diagnostic Kit) 0 mg IM STAT PRN; Protocol PRN Reason: Hypoglycemia Protocol Guaifenesin (Mucinex La) 600 mg PO Q12H [facility] Last Admin: 09/30/18 18:21 Dose: 600 mg Hydromorphone HCl (Dilaudid) 2 mg IVP Q4H PRN PRN Reason: Pain, severe (8-10) Last Admin: 09/30/18 18:22 Dose: 2 mg Ceftriaxone Sodium 1 gm/ (Sodium Chloride) 100 mls @ 100 mls/hr IVPB DAILY [facility]; Protocol Last Admin: 09/29/18 10:45 Dose: 100 mls/hr Insulin Glargine (Lantus) 25 unit SC HS [facility] Last Admin: 09/29/18 21:47 Dose: 25 units Insulin Human Regular (Novolin R) 0 unit SC ACHS [facility]; Protocol Last Admin: 09/30/18 16:43 Dose: Not Given Ondansetron HCl (Zofran Tab) 8 mg PO Q8H [facility] Last Admin: 09/30/18 17:45 Dose: Not Given Pantoprazole Sodium (Protonix Ec Tab) 40 mg PO DAILY [facility] Last Admin: 09/30/18 10:57 Dose: Not Given Sucralfate (Carafate Oral Susp) 1 gm PO QID [facility] Last Admin: 09/30/18 18:21 Dose: 1 gm - Labs Labs: 09/30/18 11:47 09/30/18 11:47 PT 11.9 SECONDS (9.7-12.2) 09/25/18 12:04 INR 1.1 09/25/18 12:04 APTT 32 SECONDS (21-34) D 09/25/18 12:04 Assessment and Plan - Assessment and Plan (Free Text) Assessment: ESRD ON HD M W F AND SAT ANEMIA OF CKD .. ON EPO AND FERRLICIT ON HD SOB .. CHF .. FLIUD OVER LOAD MMP P : C/O CURRENT CARE C/O PRESENT MANAGMENT ON IV ROCEPHIN
--- NOTE | 2018-09-30 19:40 | CP.PCM.CON ---
History of Present Illness - History of Present Illness History of Present Illness: Vascular Surgery Dr. Alicia Patient is a 32 year old female who presented to the ED 09/24/18 for shortness of breath and worsening LE swelling for the past few days. She reported associated cough with productive clear sputum. Patient reports medication compliance and MWF hemodialysis. Patient reports improvement in her SOB and LE swelling since admission. She denies chest pain, n/v, d/c, headache, fever, or swelling. PMD: Dr. Yoly Sexton PMH: ESRD, CHF, HTN, HLD, sickle cell trait, asthma, obstructive sleep apnea, diabetes mellitus type I, DVT x2, anemia, gastroparesis, glaucoma, cataracts, opioid dependence SurgH: left AVF, cholecystectomy, multiple permacaths and portacaths Medications: percocet, clonidine, sucralfate, pantoprazole, ondansetron, Novolin R, Lantus, gabapentin, docusate, cholecalciferol, calcium acetate FHx: mother - diabetes, HTN SHx: patient lives in [place] with her mother, she is unemployed, patient denies alcohol, tobacco, or illicit drugs Allergies: toradol, latex, morphine, tramadol Review of Systems - Constitutional Constitutional: Fatigue. absent: Fever, Headache - EENT Eyes: absent: Blurred Vision, Change in Vision, Diplopia Ears: absent: Ear Discharge, Ear Pain, Abnormal Hearing Nose/Mouth/Throat: absent: Nasal Congestion, Nasal Discharge, Sore Throat, Throat Swelling, Tongue Swelling - Cardiovascular Cardiovascular: Dyspnea, Dyspnea on Exertion, Leg Edema. absent: Chest Pain, Claudication, Diaphoresis - Respiratory Respiratory: Dyspnea. absent: Cough, Hemoptysis, Wheezing, Excessive Mucous Production - Gastrointestinal Gastrointestinal: absent: Constipation, Diarrhea, Nausea, Vomiting - Genitourinary Genitourinary: absent: Change in Urinary Stream Additional comments: Reports no urination due to dialysis - Reproductive: Female Reproductive:Female: Amenorrhea - Menstruation Menstruation: Amenorrhea - Musculoskeletal Musculoskeletal: Joint Swelling, Numbness. absent: Neck Pain - Integumentary Integumentary: absent: Alopecia, Bleeding Lesions, Jaundice - Neurological Neurological: absent: Abnormal Gait, Abnormal Hearing, Abnormal Movements, Abnormal Speech, Behavioral Changes, Syncope - Psychiatric Psychiatric: absent: Auditory Hallucinations, Homicidal Ideation, Suicidal Ideation, Visual Hallucinations Past Patient History - Infectious Disease Hx of Infectious Diseases: None - Tetanus Immunizations Tetanus Immunization: Unknown - Past Medical History & Family History Past Medical History?: Yes Past Family History: Reviewed and not pertinent - Past Social History Smoking Status: Never Smoked Chewing Tobacco Use: No Cigar Use: No Occupation: unemployed Alcohol: None Drugs: Denies Home Situation {Lives}: With Family Domestic Violence: Negative - CARDIAC Hx Congestive Heart Failure: Yes Hx Hypercholesterolemia: Yes Hx Hypertension: Yes Hx Peripheral Edema: Yes - PULMONARY Hx Asthma: Yes Hx Bronchitis: Yes Hx Pneumonia: Yes Hx Sleep Apnea: Yes - NEUROLOGICAL Hx Seizures: Yes - HEENT Hx HEENT Problems: Yes Hx Cataracts: Yes (BOTH EYES) Hx Glaucoma: Yes (BOTH EYES) - RENAL Hx Chronic Kidney Disease: Yes Hx Kidney Stones: Yes - ENDOCRINE/METABOLIC Hx Hyperthyroidism: Yes Hx Hypothyroidism: Yes - HEMATOLOGICAL/ONCOLOGICAL Hx Anemia: Yes - INTEGUMENTARY Hx Dermatological Problems: Yes Other/Comment: DRY ITCHY SKIN ;multiple/generalized dark spots on skin. left toe blister - MUSCULOSKELETAL/RHEUMATOLOGICAL Hx Fractures: Yes (LEFT FOOT) - GASTROINTESTINAL Hx Gall Bladder Disease: Yes Hx Gastritis: Yes Hx Pancreatitis: Yes - PSYCHIATRIC Hx Anxiety: Yes Hx Substance Use: No - SURGICAL HISTORY Hx Cholecystectomy: Yes Hx Coronary Stent: Yes - ANESTHESIA Hx Anesthesia: Yes Hx Anesthesia Reactions: No Hx Malignant Hyperthermia: No Meds Allergies/Adverse Reactions: Allergies Allergy/AdvReac Type Severity Reaction Status Date / Time ketorolac tromethamine Allergy RASH Verified 09/24/18 20:59 [From Toradol] latex Allergy RASH Verified 09/24/18 20:59 morphine Allergy RASH Verified 09/24/18 20:59 tramadol Allergy RASH Verified 09/24/18 20:59 hydromorphone AdvReac ITCHING Verified 09/24/18 20:59 - Medications Medications: Current Medications Acyclovir (Zovirax 5% Oint) 1 gm EXT Q3H [facility] Last Admin: 09/30/18 17:45 Dose: Not Given Amlodipine Besylate (Norvasc) 5 mg PO DAILY [facility] Last Admin: 09/30/18 09:44 Dose: Not Given Calcium Acetate (Phoslo) 667 mg PO TID [facility] Last Admin: 09/30/18 18:22 Dose: 667 mg Carvedilol (Coreg) 3.125 mg PO BID [facility] Last Admin: 09/30/18 18:22 Dose: 3.125 mg Clonidine HCl (Catapres) 0.3 mg PO BID [facility] Last Admin: 09/30/18 18:22 Dose: 0.3 mg Dextrose (Dextrose 50% Inj) 0 ml IV STAT PRN; Protocol PRN Reason: Hypoglycemia Protocol Dextrose (Glutose 15) 0 gm PO ONCE PRN; Protocol PRN Reason: Hypoglycemia Protocol Diphenhydramine HCl (Benadryl) 25 mg PO Q4H PRN PRN Reason: Itching / Pruritus Last Admin: 09/30/18 18:21 Dose: 25 mg Docusate Sodium (Colace) 100 mg PO TID [facility] Last Admin: 09/30/18 18:22 Dose: 100 mg Epoetin James (Procrit) 10,000 unit IV MWF [facility] Last Admin: 09/30/18 12:21 Dose: 10,000 unit Ergocalciferol (Drisdol 50,000 Intl Units Cap) 1 cap PO Q7D [facility] Last Admin: 09/25/18 09:56 Dose: 1 cap Ferric Sodium Gluconate Complex (Ferrlecit) 125 mg IVPB DAILY [facility] Stop: 10/03/18 10:46 Last Admin: 09/30/18 12:20 Dose: 125 mg Gabapentin (Neurontin) 300 mg PO BID [facility] Last Admin: 09/30/18 18:21 Dose: 300 mg Glucagon (Glucagen Diagnostic Kit) 0 mg IM STAT PRN; Protocol PRN Reason: Hypoglycemia Protocol Guaifenesin (Mucinex La) 600 mg PO Q12H [facility] Last Admin: 09/30/18 18:21 Dose: 600 mg Hydromorphone HCl (Dilaudid) 2 mg IVP Q4H PRN PRN Reason: Pain, severe (8-10) Last Admin: 09/30/18 18:22 Dose: 2 mg Ceftriaxone Sodium 1 gm/ (Sodium Chloride) 100 mls @ 100 mls/hr IVPB DAILY [facility]; Protocol Last Admin: 09/29/18 10:45 Dose: 100 mls/hr Insulin Glargine (Lantus) 25 unit SC HS [facility] Last Admin: 09/29/18 21:47 Dose: 25 units Insulin Human Regular (Novolin R) 0 unit SC ACHS [facility]; Protocol Last Admin: 09/30/18 16:43 Dose: Not Given Ondansetron HCl (Zofran Tab) 8 mg PO Q8H [facility] Last Admin: 09/30/18 17:45 Dose: Not Given Pantoprazole Sodium (Protonix Ec Tab) 40 mg PO DAILY [facility] Last Admin: 09/30/18 10:57 Dose: Not Given Sucralfate (Carafate Oral Susp) 1 gm PO QID [facility] Last Admin: 09/30/18 18:21 Dose: 1 gm Physical Exam - Constitutional Appears: Non-toxic, No Acute Distress - Head Exam Head Exam: ATRAUMATIC, NORMAL INSPECTION, NORMOCEPHALIC - Eye Exam Eye Exam: EOMI, Normal appearance - ENT Exam ENT Exam: Mucous Membranes Moist, Normal Exam - Neck Exam Neck exam: Positive for: Normal Inspection - Respiratory Exam Respiratory Exam: Clear to Auscultation Bilateral, NORMAL BREATHING PATTERN. absent: Accessory Muscle Use, Rales, Rhonchi, Wheezes - Cardiovascular Exam Cardiovascular Exam: Tachycardia, REGULAR RHYTHM, +S1, +S2 - GI/Abdominal Exam GI & Abdominal Exam: Normal Bowel Sounds, Soft. absent: Firm, Guarding, Rebound, Rigid - Extremities Exam Extremities exam: Positive for: pedal edema Additional comments: 1+ LE pitting edema AVF present in L UE with palpable thrill - Back Exam Back exam: NORMAL INSPECTION - Neurological Exam Neurological exam: Alert, Oriented x3 - Psychiatric Exam Psychiatric exam: Normal Affect, Normal Mood - Skin Skin Exam: Dry, Intact, Normal Color, Warm Results - Vital Signs Recent Vital Signs: Last Vital Signs Temp 97.4 F L 09/30/18 16:48 Pulse 112 H 09/30/18 16:48 Resp 20 09/30/18 16:48 BP 140/74 09/30/18 16:48 Pulse Ox 95 09/30/18 16:48 - Labs Result Diagrams: 09/30/18 11:47 09/30/18 11:47 Labs: Laboratory Results - last 24 hr 09/29/18 09/30/18 09/30/18 20:58 03:08 08:51 WBC RBC Hgb Hct MCV MCH MCHC RDW Plt Count MPV Neut % (Auto) Lymph % (Auto) Loving % (Auto) Eos % (Auto) Baso % (Auto) Neut # (Auto) Lymph # (Auto) Loving # (Auto) Eos # (Auto) Baso # (Auto) Sodium Potassium Chloride Carbon Dioxide Anion Gap BUN Creatinine Est GFR ( Amer) Est GFR (Non-Af Amer) POC Glucose (mg/dL) 300 H 166 H 148 H Random Glucose Calcium Total Bilirubin AST ALT Alkaline Phosphatase Total Protein Albumin Globulin Albumin/Globulin Ratio Blood Type Antibody Screen 09/30/18 09/30/18 09/30/18 11:22 11:47 11:47 WBC 8.1 RBC 2.48 L Hgb 8.0 L Hct 24.7 L MCV 99.6 H MCH 32.2 H MCHC 32.3 L RDW 17.4 H Plt Count 374 MPV 7.8 Neut % (Auto) 64.4 Lymph % (Auto) 15.1 L Loving % (Auto) 7.8 Eos % (Auto) 11.5 H Baso % (Auto) 1.2 Neut # (Auto) 5.2 Lymph # (Auto) 1.2 Loving # (Auto) 0.6 Eos # (Auto) 0.9 H Baso # (Auto) 0.1 Sodium 137 Potassium 5.3 H Chloride 96 L Carbon Dioxide 25 Anion Gap 21 H BUN 45 H Creatinine 7.8 H* Est GFR ( Amer) 7 Est GFR (Non-Af Amer) 6 POC Glucose (mg/dL) 181 H Random Glucose 159 H D Calcium 8.7 Total Bilirubin 0.6 AST 40 H ALT 16 Alkaline Phosphatase 155 H Total Protein 7.6 Albumin 4.4 Globulin 3.2 Albumin/Globulin Ratio 1.4 Blood Type Antibody Screen 09/30/18 09/30/18 11:47 16:22 WBC RBC Hgb Hct MCV MCH MCHC RDW Plt Count MPV Neut % (Auto) Lymph % (Auto) Loving % (Auto) Eos % (Auto) Baso % (Auto) Neut # (Auto) Lymph # (Auto) Loving # (Auto) Eos # (Auto) Baso # (Auto) Sodium Potassium Chloride Carbon Dioxide Anion Gap BUN Creatinine Est GFR ( Amer) Est GFR (Non-Af Amer) POC Glucose (mg/dL) 136 H Random Glucose Calcium Total Bilirubin AST ALT Alkaline Phosphatase Total Protein Albumin Globulin Albumin/Globulin Ratio Blood Type A POSITIVE Antibody Screen Negative Assessment & Plan - Assessment and Plan (Free Text) Assessment: Patient is a 32 year old female with PMHx of ESRD, CHF, HTN, HLD, DM, and sickle cell admitted for CHF exacerbation, also found to have central venous stenosis on prior admission 09/18/18 Plan: Scheduled for angio with balloon stent placement for L subclavian stenosis tomorrow 10/01 @ [address] Alicia Continue HD MWF for ESRD Medical management for CHF exacerbation Encourage out of bed ambulation
[2018-09-30] MEDS: (Lantus) Insulin Glargine, Recombinant SC SCH (22:10)
[2018-10-01] MEDS: Acyclovir 5% Oint (15 gm) EXT SCH ×8 (02:09→23:48)
[2018-10-01] MEDS: guaiFENesin 600 mg ER Tab PO SCH ×2 (05:21→18:33)
[2018-10-01] MEDS ORDERED: Glucagon Recombinant 1 mg Inj IM PRN (06:59)
[2018-10-01] MEDS: (Novolin R) Insulin Human Regular 100 units/ml vial SC SCH ×3 (07:37→16:20)
[2018-10-01] MEDS: Dextrose 50% SYRINGE Inj (50 ml) IV PRN ×2 (08:07→11:08)
[2018-10-01] MEDS ORDERED: Dextrose 50% VIAL Inj (50 ml) IV ONE ×2 (08:09→11:08)
[2018-10-01] MEDS: Ferric Sodium Gluconat Complex 62.5 mg/5 ml Vial IVPB SCH (09:42)
[2018-10-01] MEDS: Sucralfate 1 gm/10 ml Oral Susp UD PO SCH ×4 (09:48→22:25)
[2018-10-01] MEDS: Pantoprazole 40 mg EC Tab PO SCH (09:49)
[2018-10-01 11:54] LABS: HEMOGLOBIN 8.2 g/dL (11.0-16.0); MEAN CELL VOLUME 100.4 fL (81.0-99.0); MEAN CORPUSCULAR HEMOGLOBIN 32.1 pg (27.0-31.0); MEAN PLATELET VOLUME 7.8 fL (7.2-11.7); RBC 2.56 Mil/uL (3.80-5.20); RED CELL DISTRIBUTION WIDTH 17.3 % (11.5-14.5); WHITE BLOOD COUNT 6.4 K/uL (4.8-10.8)
[2018-10-01 12:10] LABS: INR 1.1; PROTHROMBIN TIME 12.5 SECONDS (9.7-12.2)
--- NOTE | 2018-10-01 12:18 | CP.PCM.PN ---
Subjective - Date & Time of Evaluation Date of Evaluation: 10/01/18 Time of Evaluation: 09:00 - Subjective Subjective: Scheduled for angio with balloon stent placement for L subclavian stenosis tomorrow 10/01 @ [address] Alicia IV antibiotic in progress Objective - Vital Signs/Intake and Output Vital Signs (last 24 hours): Temp Pulse Resp BP Pulse Ox 97.6 F 101 H 20 159/91 H 100 10/01/18 07:50 10/01/18 07:50 10/01/18 07:50 10/01/18 07:50 10/01/18 07:50 Intake and Output: 10/01/18 10/01/18 06:59 18:59 Intake Total 400 Balance 400 - Medications Medications: Current Medications Acyclovir (Zovirax 5% Oint) 1 gm EXT Q3H [facility]S [facility] BEDS [facility] Last Admin: 10/01/18 09:49 Dose: Not Given Amlodipine Besylate (Norvasc) 5 mg PO DAILY [facility]S [facility] 234 BEDS AT [facility] Last Admin: 10/01/18 09:48 Dose: Not Given Calcium Acetate (Phoslo) 667 mg PO TID [facility]S [facility]CLUDE 234 BEDS AT [facility] Last Admin: 10/01/18 09:48 Dose: Not Given Carvedilol (Coreg) 3.125 mg PO BID [facility] 234 BEDS AT [facility] Last Admin: 10/01/18 09:43 Dose: 3.125 mg Clonidine HCl (Catapres) 0.3 mg PO BID [facility]S [facility] 234 BEDS AT [facility] Last Admin: 10/01/18 09:43 Dose: 0.3 mg Dextrose (Dextrose 50% Inj) 0 ml IV STAT PRN; Protocol PRN Reason: Hypoglycemia Protocol Last Admin: 10/01/18 04:35 Dose: 50 ml Dextrose (Glutose 15) 0 gm PO ONCE PRN; Protocol PRN Reason: Hypoglycemia Protocol Last Admin: 10/01/18 07:07 Dose: 15 gm Dextrose (Dextrose 50% Inj) 0 ml IV STAT PRN; Protocol PRN Reason: Hypoglycemia Protocol Last Admin: 10/01/18 11:08 Dose: 50 ml Dextrose (Glutose 15) 0 gm PO ONCE PRN; Protocol PRN Reason: Hypoglycemia Protocol Diphenhydramine HCl (Benadryl) 25 mg PO Q4H PRN PRN Reason: Itching / Pruritus Last Admin: 10/01/18 06:23 Dose: 25 mg Docusate Sodium (Colace) 100 mg PO TID [facility]S [facility] 234 BEDS [facility] Last Admin: 10/01/18 09:48 Dose: Not Given Epoetin James (Procrit) 10,000 unit IV MWF [facility]S [facility]CLUDE 234 BEDS AT [facility] Last Admin: 09/30/18 12:21 Dose: 10,000 unit Ergocalciferol (Drisdol 50,000 Intl Units Cap) 1 cap PO Q7D [facility]S [facility]CLUDE 234 BEDS AT [facility] Last Admin: 09/25/18 09:56 Dose: 1 cap Ferric Sodium Gluconate Complex (Ferrlecit) 125 mg IVPB DAILY [facility]CLUDE 234 BEDS AT [facility] Stop: 10/03/18 10:46 Last Admin: 10/01/18 09:42 Dose: 125 mg Gabapentin (Neurontin) 100 mg PO BID [facility]S [facility] 234 BEDS AT [facility] Glucagon (Glucagen Diagnostic Kit) 0 mg IM STAT PRN; Protocol PRN Reason: Hypoglycemia Protocol Glucagon (Glucagen Diagnostic Kit) 0 mg IM STAT PRN; Protocol PRN Reason: Hypoglycemia Protocol Guaifenesin (Mucinex La) 600 mg PO Q12H COUNTS [facility]CLUDE 234 BEDS AT [facility] Last Admin: 10/01/18 05:21 Dose: 600 mg Hydromorphone HCl (Dilaudid) 2 mg IVP Q4H PRN PRN Reason: Pain, severe (8-10) Last Admin: 10/01/18 06:24 Dose: 2 mg Ceftriaxone Sodium 1 gm/ (Sodium Chloride) 100 mls @ 100 mls/hr IVPB DAILY [facility] 234 BEDS [facility]; Protocol Last Admin: 10/01/18 09:43 Dose: 100 mls/hr Dextrose (Dextrose 5% In Water 1000 Ml) 1,000 mls @ 0 mls/hr IV .Q0M PRN; Protocol PRN Reason: Hypoglycemia Protocol Dextrose (Dextrose 5% In Water) 500 mls @ 50 mls/hr IV .Q10H [facility]S [facility] 234 BEDS [facility] Stop: 10/01/18 18:14 Last Admin: 10/01/18 08:16 Dose: 50 mls/hr Insulin Glargine (Lantus) 25 unit SC HS COUNTS [facility] 234 BEDS [facility] Last Admin: 09/30/18 22:10 Dose: 25 units Insulin Human Regular (Novolin R) 0 unit SC ACHS COUNTS [facility]CLUDE 234 BEDS AT [facility]; Protocol Last Admin: 10/01/18 07:37 Dose: Not Given Ondansetron HCl (Zofran Tab) 8 mg PO Q8H COUNTS [facility]CLUDE 234 BEDS AT [facility] Last Admin: 10/01/18 08:36 Dose: Not Given Pantoprazole Sodium (Protonix Ec Tab) 40 mg PO DAILY [facility]CLUDE 234 BEDS AT [facility] Last Admin: 10/01/18 09:49 Dose: Not Given Sucralfate (Carafate Oral Susp) 1 gm PO QID [facility] Last Admin: 10/01/18 09:48 Dose: Not Given - Labs Labs: 10/01/18 11:46 09/30/18 11:47 PT 12.5 SECONDS (9.7-12.2) H 10/01/18 11:46 INR 1.1 10/01/18 11:46 APTT 41 SECONDS (21-34) H 10/01/18 11:46 - Constitutional Appears: Non-toxic, No Acute Distress, Chronically Ill - Head Exam Head Exam: ATRAUMATIC, NORMAL INSPECTION, NORMOCEPHALIC - Eye Exam Eye Exam: EOMI, Normal appearance, PERRL Pupil Exam: NORMAL ACCOMODATION, PERRL - ENT Exam ENT Exam: Mucous Membranes Moist, Normal Exam - Neck Exam Neck Exam: Full ROM, Normal Inspection. absent: Lymphadenopathy - Respiratory Exam Respiratory Exam: Clear to Ausculation Bilateral, NORMAL BREATHING PATTERN - Cardiovascular Exam Cardiovascular Exam: REGULAR RHYTHM, +S1, +S2. absent: Murmur - GI/Abdominal Exam GI & Abdominal Exam: Soft, Normal Bowel Sounds. absent: Tenderness - Rectal Exam Rectal Exam: Deferred - Exam Exam: NORMAL INSPECTION - Extremities Exam Extremities Exam: Full ROM, Normal Capillary Refill, Normal Inspection. absent: Joint Swelling, Pedal Edema - Back Exam Back Exam: NORMAL INSPECTION - Neurological Exam Neurological Exam: Alert, Awake, CN II-XII Intact, Normal Gait, Oriented x3 - Psychiatric Exam Psychiatric exam: Normal Affect, Normal Mood - Skin Skin Exam: Dry, Intact, Normal Color, Warm Assessment and Plan - Assessment and Plan (Free Text) Assessment: Scheduled for angio with balloon stent placement for L subclavian stenosis tomorrow 10/01 @ [address] Alicia
[2018-10-01 12:22] LABS: ALB/GLOB RATIO 1.3 (1.0-2.1); ALBUMIN 4.4 g/dL (3.5-5.0)
[2018-10-01] MEDS ORDERED: Dextrose 5%/0.9% NS 1,000 ML IV SCH ×2 (17:00→22:00)
--- NOTE | 2018-10-01 17:54 | CP.PCM.PN ---
Subjective - Date & Time of Evaluation Date of Evaluation: 10/01/18 Time of Evaluation: 09:15 - Subjective Subjective: clinically same Objective - Vital Signs/Intake and Output Vital Signs (last 24 hours): Temp Pulse Resp BP Pulse Ox 98.5 F 86 20 151/87 H 99 10/01/18 15:22 10/01/18 15:22 10/01/18 15:22 10/01/18 15:22 10/01/18 15:22 Intake and Output: 10/01/18 10/01/18 06:59 18:59 Intake Total 400 Balance 400 - Medications Medications: Current Medications Acyclovir (Zovirax 5% Oint) 1 gm EXT Q3H [facility] Last Admin: 10/01/18 14:28 Dose: Not Given Amlodipine Besylate (Norvasc) 5 mg PO DAILY [facility] Last Admin: 10/01/18 09:48 Dose: Not Given Calcium Acetate (Phoslo) 667 mg PO TID [facility] Last Admin: 10/01/18 14:27 Dose: Not Given Carvedilol (Coreg) 3.125 mg PO BID [facility] Last Admin: 10/01/18 09:43 Dose: 3.125 mg Clonidine HCl (Catapres) 0.3 mg PO BID [facility] Last Admin: 10/01/18 09:43 Dose: 0.3 mg Dextrose (Dextrose 50% Inj) 0 ml IV STAT PRN; Protocol PRN Reason: Hypoglycemia Protocol Last Admin: 10/01/18 04:35 Dose: 50 ml Dextrose (Glutose 15) 0 gm PO ONCE PRN; Protocol PRN Reason: Hypoglycemia Protocol Last Admin: 10/01/18 07:07 Dose: 15 gm Dextrose (Dextrose 50% Inj) 0 ml IV STAT PRN; Protocol PRN Reason: Hypoglycemia Protocol Last Admin: 10/01/18 11:08 Dose: 50 ml Dextrose (Glutose 15) 0 gm PO ONCE PRN; Protocol PRN Reason: Hypoglycemia Protocol Diphenhydramine HCl (Benadryl) 25 mg PO Q4H PRN PRN Reason: Itching / Pruritus Last Admin: 10/01/18 14:36 Dose: 25 mg Docusate Sodium (Colace) 100 mg PO TID [facility] Last Admin: 10/01/18 14:27 Dose: Not Given Epoetin James (Procrit) 10,000 unit IV MWF [facility] Last Admin: 09/30/18 12:21 Dose: 10,000 unit Ergocalciferol (Drisdol 50,000 Intl Units Cap) 1 cap PO Q7D [facility] Last Admin: 09/25/18 09:56 Dose: 1 cap Ferric Sodium Gluconate Complex (Ferrlecit) 125 mg IVPB DAILY [facility] Stop: 10/03/18 10:46 Last Admin: 10/01/18 09:42 Dose: 125 mg Gabapentin (Neurontin) 100 mg PO BID [facility] Glucagon (Glucagen Diagnostic Kit) 0 mg IM STAT PRN; Protocol PRN Reason: Hypoglycemia Protocol Glucagon (Glucagen Diagnostic Kit) 0 mg IM STAT PRN; Protocol PRN Reason: Hypoglycemia Protocol Guaifenesin (Mucinex La) 600 mg PO Q12H [facility] Last Admin: 10/01/18 05:21 Dose: 600 mg Hydromorphone HCl (Dilaudid) 2 mg IVP Q4H PRN PRN Reason: Pain, severe (8-10) Last Admin: 10/01/18 14:36 Dose: 2 mg Ceftriaxone Sodium 1 gm/ (Sodium Chloride) 100 mls @ 100 mls/hr IVPB DAILY [facility]; Protocol Last Admin: 10/01/18 09:43 Dose: 100 mls/hr Dextrose (Dextrose 5% In Water 1000 Ml) 1,000 mls @ 0 mls/hr IV .Q0M PRN; Pro tocol PRN Reason: Hypoglycemia Protocol Dextrose (Dextrose 5% In Water) 500 mls @ 50 mls/hr IV .Q10H [facility] Stop: 10/01/18 18:14 Last Admin: 10/01/18 08:16 Dose: 50 mls/hr Dextrose/Sodium Chloride (Dextrose 5%/0.9% Ns 1000 Ml) 1,000 mls @ 60 mls/hr IV .[id number] [facility] Insulin Glargine (Lantus) 25 unit SC HS [facility] Last Admin: 09/30/18 22:10 Dose: 25 units Insulin Glargine (Lantus) 12 unit SC HS [facility] Insulin Human Regular (Novolin R) 0 unit SC ACHS [facility]; Protocol Last Admin: 10/01/18 12:33 Dose: Not Given Ondansetron HCl (Zofran Tab) 8 mg PO Q8H [facility] Last Admin: 10/01/18 08:36 Dose: Not Given Pantoprazole Sodium (Protonix Ec Tab) 40 mg PO DAILY [facility] Last Admin: 10/01/18 09:49 Dose: Not Given Sucralfate (Carafate Oral Susp) 1 gm PO QID [facility] Last Admin: 10/01/18 14:26 Dose: Not Given - Labs Labs: 10/01/18 11:46 10/01/18 11:46 PT 12.5 SECONDS (9.7-12.2) H 10/01/18 11:46 INR 1.1 10/01/18 11:46 APTT 41 SECONDS (21-34) H 10/01/18 11:46
--- NOTE | 2018-10-01 21:41 | CP.PCM.PN ---
Subjective - Date & Time of Evaluation Date of Evaluation: 10/01/18 Time of Evaluation: 15:00 - Subjective Subjective: SEEN ON RENAL F/U FEELS BETTER ALL PREVIOUS EMR REVIEWED LABS REVIEWED VASCULAR SURGERY CONSULT WAS REVIEWED AND APPRECIATED.. FOR ANGIOGRAM/PASTY IN AM Objective - Vital Signs/Intake and Output Vital Signs (last 24 hours): Temp Pulse Resp BP Pulse Ox 98.5 F 86 20 151/87 H 99 10/01/18 15:22 10/01/18 15:22 10/01/18 15:22 10/01/18 15:22 10/01/18 15:22 - Medications Medications: Current Medications Acyclovir (Zovirax 5% Oint) 1 gm EXT Q3H [facility] Last Admin: 10/01/18 19:57 Dose: Not Given Amlodipine Besylate (Norvasc) 5 mg PO DAILY [facility] Last Admin: 10/01/18 09:48 Dose: Not Given Calcium Acetate (Phoslo) 667 mg PO TID [facility] Last Admin: 10/01/18 18:33 Dose: 667 mg Carvedilol (Coreg) 3.125 mg PO BID [facility] Last Admin: 10/01/18 18:34 Dose: 3.125 mg Clonidine HCl (Catapres) 0.3 mg PO BID [facility] Last Admin: 10/01/18 18:34 Dose: 0.3 mg Dextrose (Dextrose 50% Inj) 0 ml IV STAT PRN; Protocol PRN Reason: Hypoglycemia Protocol Last Admin: 10/01/18 04:35 Dose: 50 ml Dextrose (Glutose 15) 0 gm PO ONCE PRN; Protocol PRN Reason: Hypoglycemia Protocol Last Admin: 10/01/18 07:07 Dose: 15 gm Dextrose (Dextrose 50% Inj) 0 ml IV STAT PRN; Protocol PRN Reason: Hypoglycemia Protocol Last Admin: 10/01/18 11:08 Dose: 50 ml Dextrose (Glutose 15) 0 gm PO ONCE PRN; Protocol PRN Reason: Hypoglycemia Protocol Diphenhydramine HCl (Benadryl) 25 mg PO Q4H PRN PRN Reason: Itching / Pruritus Last Admin: 10/01/18 18:34 Dose: 25 mg Docusate Sodium (Colace) 100 mg PO TID [facility] Last Admin: 10/01/18 18:33 Dose: 100 mg Epoetin James (Procrit) 10,000 unit IV MWF [facility] Last Admin: 09/30/18 12:21 Dose: 10,000 unit Ergocalciferol (Drisdol 50,000 Intl Units Cap) 1 cap PO Q7D [facility] Last Admin: 09/25/18 09:56 Dose: 1 cap Ferric Sodium Gluconate Complex (Ferrlecit) 125 mg IVPB DAILY [facility] Stop: 10/03/18 10:46 Last Admin: 10/01/18 09:42 Dose: 125 mg Gabapentin (Neurontin) 100 mg PO BID [facility] Last Admin: 10/01/18 18:34 Dose: 100 mg Glucagon (Glucagen Diagnostic Kit) 0 mg IM STAT PRN; Protocol PRN Reason: Hypoglycemia Protocol Glucagon (Glucagen Diagnostic Kit) 0 mg IM STAT PRN; Protocol PRN Reason: Hypoglycemia Protocol Guaifenesin (Mucinex La) 600 mg PO Q12H [facility] Last Admin: 10/01/18 18:33 Dose: 600 mg Hydromorphone HCl (Dilaudid) 2 mg IVP Q4H PRN PRN Reason: Pain, severe (8-10) Last Admin: 10/01/18 18:34 Dose: 2 mg Ceftriaxone Sodium 1 gm/ (Sodium Chloride) 100 mls @ 100 mls/hr IVPB DAILY [facility]; Protocol Last Admin: 10/01/18 09:43 Dose: 100 mls/hr Dextrose (Dextrose 5% In Water 1000 Ml) 1,000 mls @ 0 mls/hr IV .Q0M PRN; Protocol PRN Reason: Hypoglycemia Protocol Dextrose/Sodium Chloride (Dextrose 5%/0.9% Ns 1000 Ml) 1,000 mls @ 60 mls/hr IV .[id number] [facility] Insulin Glargine (Lantus) 25 unit SC HS [facility] Last Admin: 09/30/18 22:10 Dose: 25 units Insulin Glargine (Lantus) 12 unit SC HS [facility] Insulin Human Regular (Novolin R) 0 unit SC ACHS [facility]; Protocol Last Admin: 10/01/18 16:20 Dose: Not Given Ondansetron HCl (Zofran Tab) 8 mg PO Q8H [facility] Last Admin: 10/01/18 18:34 Dose: 8 mg Pantoprazole Sodium (Protonix Ec Tab) 40 mg PO DAILY [facility] Last Admin: 10/01/18 09:49 Dose: Not Given Sucralfate (Carafate Oral Susp) 1 gm PO QID [facility] Last Admin: 10/01/18 18:33 Dose: 1 gm - Labs Labs: 10/01/18 11:46 10/01/18 11:46 PT 12.5 SECONDS (9.7-12.2) H 10/01/18 11:46 INR 1.1 10/01/18 11:46 APTT 41 SECONDS (21-34) H 10/01/18 11:46 Assessment and Plan - Assessment and Plan (Free Text) Plan: ESRD ON HD M W F AND SAT .. TO BE C/O ANEMIA OF CKD .. ON EPO AND IRON L SUB CLAVIAN STENOSIS .. FOR ANGIOPLASTY TOMORROW MMP P C/O CURRENT HD C/O PRESENT MEDS
[2018-10-01] MEDS: (Lantus) Insulin Glargine, Recombinant SC SCH (21:48)
[2018-10-02] MEDS: Acyclovir 5% Oint (15 gm) EXT SCH ×8 (01:56→22:37)
[2018-10-02] MEDS: guaiFENesin 600 mg ER Tab PO SCH ×2 (06:51→17:06)
[2018-10-02] MEDS: (Novolin R) Insulin Human Regular 100 units/ml vial SC SCH ×4 (07:26→22:37)
[2018-10-02] MEDS: Sucralfate 1 gm/10 ml Oral Susp UD PO SCH ×4 (09:33→22:35)
[2018-10-02] MEDS: Pantoprazole 40 mg EC Tab PO SCH (09:34)
[2018-10-02] MEDS: Ergocalciferol 50,000 Intl Units Cap PO SCH (09:34)
[2018-10-02] MEDS ORDERED: HEPARIN-NS 5,000 UNITS/500 ML 10,000 UNIT/1,000 ML BAG IV ONE (09:40)
[2018-10-02] MEDS ORDERED: ceFAZolin 1 gm in NS 2 GM/200 ML BAG IVPB ONE (09:41)
[2018-10-02] MEDS ORDERED: ceFAZolin 1 gm in NS 1 GM/100 ML BAG IVPB ONE (09:41)
[2018-10-02 11:02] LABS: BASO # 0.1 K/uL (0.0-0.2); BASO % 1.4 % (0.0-2.0); EOS # 0.9 K/uL (0.0-0.7); EOS % 13.5 % (0.0-4.0); HEMOGLOBIN 7.6 g/dL (11.0-16.0); LYMPH # 1.1 K/uL (1.0-4.3); LYMPH % 16.6 % (20.0-40.0); MEAN CELL VOLUME 100.4 fL (81.0-99.0); MEAN CORPUSCULAR HEMOGLOBIN 32.2 pg (27.0-31.0); MEAN CORPUSCULAR HGB CONC 32.1 g/dL (33.0-37.0); MEAN PLATELET VOLUME 7.9 fL (7.2-11.7); MONO # 0.7 K/uL (0.0-0.8); MONO % 10.1 % (0.0-10.0); NEUT % 58.4 % (50.0-75.0); RBC 2.37 Mil/uL (3.80-5.20); RED CELL DISTRIBUTION WIDTH 17.1 % (11.5-14.5); WHITE BLOOD COUNT 6.9 K/uL (4.8-10.8)
[2018-10-02 11:40] LABS: BLOOD UREA NITROGEN 46 mg/dL (7-17); CALCIUM 8.5 mg/dl (8.6-10.4); GFR NON-AFRICAN AMERICAN 6
[2018-10-02] MEDS ORDERED: Iohexol 240 200 ML ONE ×2 (13:14→14:54)
[2018-10-02] MEDS ORDERED: Midazolam 2 MG/2 ML VIAL ONE (14:11)
[2018-10-02] MEDS ORDERED: Lidocaine Hydrochloride 20 ML INJ ONE (14:25)
--- NOTE | 2018-10-02 15:40 | PCM.SURG1 ---
Surgeon's Initial Post Op Note - Surgeon's Notes Surgeon: Dr. Alicia Band Tier: Dr. Riggs PGY3 Type of Anesthesia: IV Sedation Pre-Operative Diagnosis: central venous stenosis Operative Findings: see dictation Post-Operative Diagnosis: same Operation Performed: fistulogram, central venous balloon angioplasty, stent placement Specimen/Specimens Removed: none Estimated Blood Loss: EBL {In ML}: 20 Blood Products Given: N/A Drains Used: No Drains Post-Op Condition: Good Date of Surgery/Procedure: 10/02/18 Time of Surgery/Procedure: 15:40
[2018-10-02] MEDS ORDERED: Sodium Chloride 0.9% 1,000 ML IV SCH (16:00)
--- NOTE | 2018-10-02 17:22 | CP.PCM.PN ---
Subjective - Date & Time of Evaluation Date of Evaluation: 10/02/18 Time of Evaluation: 09:30 - Subjective Subjective: clinically same Objective - Vital Signs/Intake and Output Vital Signs (last 24 hours): Temp Pulse Resp BP Pulse Ox 97.6 F 83 18 174/84 H 97 10/02/18 16:50 10/02/18 16:50 10/02/18 16:50 10/02/18 16:50 10/02/18 16:51 Intake and Output: 10/02/18 10/02/18 06:59 18:59 Intake Total 400 Balance 400 - Medications Medications: Current Medications Acetaminophen (Tylenol 325mg Tab) 650 mg PO ONCE PRN PRN Reason: Pain, moderate (4-7) Acyclovir (Zovirax 5% Oint) 1 gm EXT Q3H [facility] Last Admin: 10/02/18 17:00 Dose: Not Given Amlodipine Besylate (Norvasc) 5 mg PO DAILY [facility] Last Admin: 10/02/18 09:34 Dose: Not Given Calcium Acetate (Phoslo) 667 mg PO TID [facility] Last Admin: 10/02/18 17:14 Dose: Not Given Carvedilol (Coreg) 3.125 mg PO BID [facility] Last Admin: 10/02/18 17:13 Dose: 3.125 mg Clonidine HCl (Catapres) 0.3 mg PO BID [facility] Last Admin: 10/02/18 17:13 Dose: 0.3 mg Dextrose (Dextrose 50% Inj) 0 ml IV STAT PRN; Protocol PRN Reason: Hypoglycemia Protocol Last Admin: 10/01/18 04:35 Dose: 50 ml Dextrose (Glutose 15) 0 gm PO ONCE PRN; Protocol PRN Reason: Hypoglycemia Protocol Last Admin: 10/01/18 07:07 Dose: 15 gm Dextrose (Dextrose 50% Inj) 0 ml IV STAT PRN; Protocol PRN Reason: Hypoglycemia Protocol Last Admin: 10/01/18 11:08 Dose: 50 ml Dextrose (Glutose 15) 0 gm PO ONCE PRN; Protocol PRN Reason: Hypoglycemia Protocol Diphenhydramine HCl (Benadryl) 25 mg PO Q4H PRN PRN Reason: Itching / Pruritus Last Admin: 10/02/18 16:46 Dose: 25 mg Docusate Sodium (Colace) 100 mg PO TID [facility] Last Admin: 10/02/18 17:13 Dose: 100 mg Epoetin James (Procrit) 10,000 unit IV MWF [facility] Last Admin: 09/30/18 12:21 Dose: 10,000 unit Ergocalciferol (Drisdol 50,000 Intl Units Cap) 1 cap PO Q7D [facility] Last Admin: 10/02/18 09:34 Dose: Not Given Ferric Sodium Gluconate Complex (Ferrlecit) 125 mg IVPB DAILY [facility] Stop: 10/03/18 10:46 Last Admin: 10/01/18 09:42 Dose: 125 mg Gabapentin (Neurontin) 100 mg PO BID [facility] Last Admin: 10/02/18 17:06 Dose: 100 mg Glucagon (Glucagen Diagnostic Kit) 0 mg IM STAT PRN; Protocol PRN Reason: Hypoglycemia Protocol Glucagon (Glucagen Diagnostic Kit) 0 mg IM STAT PRN; Protocol PRN Reason: Hypoglycemia Protocol Guaifenesin (Mucinex La) 600 mg PO Q12H [facility] Last Admin: 10/02/18 17:06 Dose: 600 mg Hydromorphone HCl (Dilaudid) 2 mg IVP Q4H PRN PRN Reason: Pain, severe (8-10) Last Admin: 10/02/18 16:47 Dose: 2 mg Ceftriaxone Sodium 1 gm/ (Sodium Chloride) 100 mls @ 100 mls/hr IVPB DAILY [facility]; Protocol Last Admin: 10/01/18 09:43 Dose: 100 mls/hr Dextrose (Dextrose 5% In Water 1000 Ml) 1,000 mls @ 0 mls/hr IV .Q0M PRN; Protocol PRN Reason: Hypoglycemia Protocol Dextrose/Sodium Chloride (Dextrose 5%/0.9% Ns 1000 Ml) 1,000 mls @ 60 mls/hr IV .[id number] [facility] Sodium Chloride (Sodium Chloride 0.9%) 1,000 mls @ 75 mls/hr IV .[id number] [facility] Last Admin: 10/02/18 16:58 Dose: 75 mls/hr Insulin Glargine (Lantus) 25 unit SC HS [facility] Last Admin: 09/30/18 22:10 Dose: 25 units Insulin Glargine (Lantus) 12 unit SC HS [facility] Last Admin: 10/01/18 21:48 Dose: Not Given Insulin Human Regular (Novolin R) 0 unit SC ACHS [facility]; Protocol Last Admin: 10/02/18 16:53 Dose: Not Given Ondansetron HCl (Zofran Tab) 8 mg PO Q8H [facility] Last Admin: 10/02/18 16:57 Dose: 8 mg Pantoprazole Sodium (Protonix Ec Tab) 40 mg PO DAILY [facility] Last Admin: 10/02/18 09:34 Dose: Not Given Sucralfate (Carafate Oral Susp) 1 gm PO QID [facility] Last Admin: 10/02/18 17:13 Dose: 1 gm - Labs Labs: 10/02/18 10:48 10/02/18 10:00 PT 12.5 SECONDS (9.7-12.2) H 10/01/18 11:46 INR 1.1 10/01/18 11:46 APTT 41 SECONDS (21-34) H 10/01/18 11:46
[2018-10-02] MEDS: Epoetin Alfa 10,000 unit/ml Dialysis IV SCH (19:41)
[2018-10-02] MEDS: Ferric Sodium Gluconat Complex 62.5 mg/5 ml Vial IVPB SCH (19:44)
[2018-10-02] MEDS: (Lantus) Insulin Glargine, Recombinant SC SCH ×2 (22:35)
[2018-10-02 22:50] VITALS: RESP 18
[2018-10-03] MEDS: Acyclovir 5% Oint (15 gm) EXT SCH ×6 (01:41→16:46)
--- NOTE | 2018-10-03 02:25 | OP ---
PROCEDURE DATE: 10/02/2018 PREOPERATIVE DIAGNOSIS: Central vein stenosis. POSTOPERATIVE DIAGNOSIS: Central vein stenosis. PROCEDURE CARRIED OUT: Fistulogram, left arm; balloon angioplasty using 8 and 10 mm balloon and then deployment of a 10 mm stent in the left innominate vein. SURGEON: Kevin Alicia Jr., MD. PROFESSIONAL DRIVER: Danielle Riggs DO. ANESTHESIOLOGIST: Floyd Monterroso CRNA. INDICATIONS: The patient is a 32-year-old woman with renal insufficiency who had recent bleeding from the arm. At that time, it was discovered she had central vein stenosis. She had a variety of clinical problems, she was unable to have the procedure carried out until now. OPERATIVE FINDINGS: There was a tight stenosis over the confluence of the left innominate and right innominate vein. This was dilated initially with an 8 mm and then with a 10 mm balloon. The cosmetic result of this was satisfactory; however, these quickly recoiled and we retracted again immediately inflating the balloon again, though there still was significant stenosis. We then deployed a 10-mm stent here and pulse dilated it. The stricture was slightly into the superior vena cava, though provided excellent flow. Some of the collateral vessels that were seen previously were visible. We then terminated the procedure, applied pressure to the site. DESCRIPTION OF THE PROCEDURE: The patient was given local anesthesia. The existing fistula in left arm was punctured. A guidewire was advanced centrally. This was exchanged for every wire. The balloon, the fistulogram was well carried out. Serial dilatations were carried out with immediate recoil which provided placement of stent. We then terminated the procedure, applied pressure to the arm. Images showed that there was high-grade stenosis over 80% at the junction of the left innominate and right innominate veins. This was subsequently dilated successfully with an 8 and 10 mm balloon and EV3 stent deployed here. Kevin Alicia Jr., MD
[2018-10-03] MEDS: guaiFENesin 600 mg ER Tab PO SCH ×2 (06:03→17:26)
--- NOTE | 2018-10-03 08:49 | CP.PCM.PN ---
Subjective - Date & Time of Evaluation Date of Evaluation: 10/03/18 Time of Evaluation: 08:47 - Subjective Subjective: Vascular Surgery Dr. Alicia Pt S&E @bedside. Pt underwent fistulogram w/ inominant vein stenting. Pt tolerated procedure well w/ no complications. No acute events overnight. Pt reports some discomfort this AM. denies F/C, N/V, paresthesia to hand. tolerating diet. Objective - Vital Signs/Intake and Output Vital Signs (last 24 hours): Temp Pulse Resp BP Pulse Ox 98 F 93 H 18 124/75 98 10/02/18 23:30 10/02/18 23:30 10/02/18 23:30 10/02/18 23:30 10/02/18 23:30 Intake and Output: 10/03/18 10/03/18 06:59 18:59 Intake Total 250 Balance 250 - Medications Medications: Current Medications Acetaminophen (Tylenol 325mg Tab) 650 mg PO ONCE PRN PRN Reason: Pain, moderate (4-7) Acyclovir (Zovirax 5% Oint) 1 gm EXT Q3H [facility] Last Admin: 10/03/18 05:05 Dose: Not Given Amlodipine Besylate (Norvasc) 5 mg PO DAILY [facility] Last Admin: 10/02/18 09:34 Dose: Not Given Calcium Acetate (Phoslo) 667 mg PO TID [facility] Last Admin: 10/02/18 17:14 Dose: Not Given Carvedilol (Coreg) 3.125 mg PO BID [facility] Last Admin: 10/02/18 17:13 Dose: 3.125 mg Clonidine HCl (Catapres) 0.3 mg PO BID [facility] Last Admin: 10/02/18 17:13 Dose: 0.3 mg Dextrose (Dextrose 50% Inj) 0 ml IV STAT PRN; Protocol PRN Reason: Hypoglycemia Protocol Last Admin: 10/01/18 04:35 Dose: 50 ml Dextrose (Glutose 15) 0 gm PO ONCE PRN; Protocol PRN Reason: Hypoglycemia Protocol Last Admin: 10/01/18 07:07 Dose: 15 gm Dextrose (Dextrose 50% Inj) 0 ml IV STAT PRN; Protocol PRN Reason: Hypoglycemia Protocol Last Admin: 10/01/18 11:08 Dose: 50 ml Dextrose (Glutose 15) 0 gm PO ONCE PRN; Protocol PRN Reason: Hypoglycemia Protocol Diphenhydramine HCl (Benadryl) 25 mg PO Q4H PRN PRN Reason: Itching / Pruritus Last Admin: 10/03/18 04:56 Dose: 25 mg Docusate Sodium (Colace) 100 mg PO TID [facility] Last Admin: 10/02/18 17:13 Dose: 100 mg Epoetin James (Procrit) 10,000 unit IV MWF [facility] Last Admin: 10/02/18 19:41 Dose: 10,000 unit Ergocalciferol (Drisdol 50,000 Intl Units Cap) 1 cap PO Q7D [facility] Last Admin: 10/02/18 09:34 Dose: Not Given Ferric Sodium Gluconate Complex (Ferrlecit) 125 mg IVPB DAILY [facility] Stop: 10/03/18 10:46 Last Admin: 10/02/18 19:44 Dose: 125 mg Gabapentin (Neurontin) 100 mg PO BID [facility] Last Admin: 10/02/18 17:06 Dose: 100 mg Glucagon (Glucagen Diagnostic Kit) 0 mg IM STAT PRN; Protocol PRN Reason: Hypoglycemia Protocol Glucagon (Glucagen Diagnostic Kit) 0 mg IM STAT PRN; Protocol PRN Reason: Hypoglycemia Protocol Guaifenesin (Mucinex La) 600 mg PO Q12H [facility] Last Admin: 10/03/18 06:03 Dose: 600 mg Hydromorphone HCl (Dilaudid) 2 mg IVP Q4H PRN PRN Reason: Pain, severe (8-10) Last Admin: 10/03/18 04:58 Dose: 2 mg Ceftriaxone Sodium 1 gm/ (Sodium Chloride) 100 mls @ 100 mls/hr IVPB DAILY [facility]; Protocol Last Admin: 10/01/18 09:43 Dose: 100 mls/hr Dextrose (Dextrose 5% In Water 1000 Ml) 1,000 mls @ 0 mls/hr IV .Q0M PRN; Protocol PRN Reason: Hypoglycemia Protocol Dextrose/Sodium Chloride (Dextrose 5%/0.9% Ns 1000 Ml) 1,000 mls @ 60 mls/hr IV .[id number] [facility] Sodium Chloride (Sodium Chloride 0.9%) 1,000 mls @ 75 mls/hr IV .[id number] [facility] Last Admin: 10/02/18 16:58 Dose: 75 mls/hr Insulin Glargine (Lantus) 25 unit SC HS [facility] Last Admin: 10/02/18 22:35 Dose: Not Given Insulin Glargine (Lantus) 12 unit SC HS [facility] Last Admin: 10/02/18 22:35 Dose: Not Given Insulin Human Regular (Novolin R) 0 unit SC ACHS [facility]; Protocol Last Admin: 10/02/18 22:37 Dose: Not Given Ondansetron HCl (Zofran Tab) 8 mg PO Q8H [facility] Last Admin: 10/03/18 00:57 Dose: 8 mg Pantoprazole Sodium (Protonix Ec Tab) 40 mg PO DAILY [facility] Last Admin: 10/02/18 09:34 Dose: Not Given Sucralfate (Carafate Oral Susp) 1 gm PO QID [facility] Last Admin: 10/02/18 22:35 Dose: Not Given - Labs Labs: 10/02/18 10:48 10/02/18 10:00 PT 12.5 SECONDS (9.7-12.2) H 10/01/18 11:46 INR 1.1 10/01/18 11:46 APTT 41 SECONDS (21-34) H 10/01/18 11:46 - Constitutional Appears: Non-toxic, No Acute Distress - Head Exam Head Exam: NORMAL INSPECTION - Eye Exam Eye Exam: Normal appearance - ENT Exam ENT Exam: Mucous Membranes Moist - Respiratory Exam Respiratory Exam: NORMAL BREATHING PATTERN. absent: Accessory Muscle Use, Respiratory Distress - Cardiovascular Exam Cardiovascular Exam: REGULAR RHYTHM. absent: Bradycardia, Tachycardia - GI/Abdominal Exam GI & Abdominal Exam: Soft. absent: Tenderness - Extremities Exam Additional comments: palpable thrill L AVF dressing c/d/i - Neurological Exam Neurological Exam: Alert, Awake, Oriented x3 - Psychiatric Exam Psychiatric exam: Normal Affect, Normal Mood - Skin Skin Exam: Dry, Intact, Normal Color, Warm Assessment and Plan - Assessment and Plan (Free Text) Assessment: 32 y/o F w/ ESRD on HD via L AVF POD#1 s/p fisulogram and stenting of inominant vein for central vein stenosis Plan: - cont HD per nephrology - monitor for bleeding - pain management - cont medical management - no further surgical intervention at this time Pt discussed w/ Dr. Ravin Riggs DO PGY3
[2018-10-03] MEDS: Ferric Sodium Gluconat Complex 62.5 mg/5 ml Vial IVPB SCH (09:06)
[2018-10-03] MEDS: Sucralfate 1 gm/10 ml Oral Susp UD PO SCH ×3 (09:06→17:26)
[2018-10-03] MEDS: Pantoprazole 40 mg EC Tab PO SCH (09:06)
[2018-10-03] MEDS: (Novolin R) Insulin Human Regular 100 units/ml vial SC SCH ×3 (09:08→17:26)
--- NOTE | 2018-10-03 12:08 | RAD ---
Date of service: 10/02/2018 PROCEDURE: Intraoperative Fluoroscopy. HISTORY: LEFT ARM FISTULOGRAM FINDINGS: Fluoroscopic assistance was provided. Fluoroscopy time = 437.5 sec. Radiation dose = 447.05 mGy. Please refer to the operative report from DEANN Lora.
--- NOTE | 2018-10-03 14:50 | CP.PCM.PN ---
Subjective - Date & Time of Evaluation Date of Evaluation: 10/03/18 Time of Evaluation: 14:50 Objective - Vital Signs/Intake and Output Vital Signs (last 24 hours): Temp Pulse Resp BP Pulse Ox 98 F 93 H 18 124/75 98 10/02/18 23:30 10/02/18 23:30 10/02/18 23:30 10/02/18 23:30 10/02/18 23:30 Intake and Output: 10/03/18 10/03/18 06:59 18:59 Intake Total 250 800 Balance 250 800 - Medications Medications: Current Medications Acetaminophen (Tylenol 325mg Tab) 650 mg PO ONCE PRN PRN Reason: Pain, moderate (4-7) Acyclovir (Zovirax 5% Oint) 1 gm EXT Q3H [facility] Last Admin: 10/03/18 13:22 Dose: Not Given Amlodipine Besylate (Norvasc) 5 mg PO DAILY [facility] Last Admin: 10/03/18 09:06 Dose: 5 mg Aspirin (Aspirin) 325 mg PO DAILY [facility] Last Admin: 10/03/18 11:40 Dose: 325 mg Calcium Acetate (Phoslo) 667 mg PO TID [facility] Last Admin: 10/03/18 13:22 Dose: 667 mg Carvedilol (Coreg) 3.125 mg PO BID [facility] Last Admin: 10/03/18 09:07 Dose: 3.125 mg Clonidine HCl (Catapres) 0.3 mg PO BID [facility] Last Admin: 10/03/18 09:13 Dose: 0.3 mg Dextrose (Dextrose 50% Inj) 0 ml IV STAT PRN; Protocol PRN Reason: Hypoglycemia Protocol Last Admin: 10/01/18 04:35 Dose: 50 ml Dextrose (Glutose 15) 0 gm PO ONCE PRN; Protocol PRN Reason: Hypoglycemia Protocol Last Admin: 10/01/18 07:07 Dose: 15 gm Dextrose (Dextrose 50% Inj) 0 ml IV STAT PRN; Protocol PRN Reason: Hypoglycemia Protocol Last Admin: 10/01/18 11:08 Dose: 50 ml Dextrose (Glutose 15) 0 gm PO ONCE PRN; Protocol PRN Reason: Hypoglycemia Protocol Diphenhydramine HCl (Benadryl) 25 mg PO Q4H PRN PRN Reason: Itching / Pruritus Last Admin: 10/03/18 13:22 Dose: 25 mg Docusate Sodium (Colace) 100 mg PO TID [facility] Last Admin: 10/03/18 09:06 Dose: 100 mg Epoetin James (Procrit) 10,000 unit IV MWF [facility] Last Admin: 10/02/18 19:41 Dose: 10,000 unit Ergocalciferol (Drisdol 50,000 Intl Units Cap) 1 cap PO Q7D [facility] Last Admin: 10/02/18 09:34 Dose: Not Given Gabapentin (Neurontin) 100 mg PO BID [facility] Last Admin: 10/03/18 09:06 Dose: 100 mg Glucagon (Glucagen Diagnostic Kit) 0 mg IM STAT PRN; Protocol PRN Reason: Hypoglycemia Protocol Glucagon (Glucagen Diagnostic Kit) 0 mg IM STAT PRN; Protocol PRN Reason: Hypoglycemia Protocol Guaifenesin (Mucinex La) 600 mg PO Q12H [facility] Last Admin: 10/03/18 06:03 Dose: 600 mg Hydromorphone HCl (Dilaudid) 2 mg IVP Q4H PRN PRN Reason: Pain, severe (8-10) Last Admin: 10/03/18 13:22 Dose: 2 mg Ceftriaxone Sodium 1 gm/ (Sodium Chloride) 100 mls @ 100 mls/hr IVPB DAILY [facility]; Protocol Last Admin: 10/03/18 09:07 Dose: 100 mls/hr Dextrose (Dextrose 5% In Water 1000 Ml) 1,000 mls @ 0 mls/hr IV .Q0M PRN; Protocol PRN Reason: Hypoglycemia Protocol Dextrose/Sodium Chloride (Dextrose 5%/0.9% Ns 1000 Ml) 1,000 mls @ 60 mls/hr IV .[id number] [facility] Sodium Chloride (Sodium Chloride 0.9%) 1,000 mls @ 75 mls/hr IV .[id number] [facility] Last Admin: 10/02/18 16:58 Dose: 75 mls/hr Insulin Glargine (Lantus) 25 unit SC HS [facility] Last Admin: 10/02/18 22:35 Dose: Not Given Insulin Glargine (Lantus) 12 unit SC HS [facility] Last Admin: 10/02/18 22:35 Dose: Not Given Insulin Human Regular (Novolin R) 0 unit SC ACHS [facility]; Protocol Last Admin: 10/03/18 13:24 Dose: 3 unit Ondansetron HCl (Zofran Tab) 8 mg PO Q8H [facility] Last Admin: 10/03/18 09:06 Dose: 8 mg Pantoprazole Sodium (Protonix Ec Tab) 40 mg PO DAILY [facility] Last Admin: 10/03/18 09:06 Dose: 40 mg Sucralfate (Carafate Oral Susp) 1 gm PO QID [facility] Last Admin: 10/03/18 13:21 Dose: 1 gm - Labs Labs: 10/02/18 10:48 10/02/18 10:00 PT 12.5 SECONDS (9.7-12.2) H 10/01/18 11:46 INR 1.1 10/01/18 11:46 APTT 41 SECONDS (21-34) H 10/01/18 11:46 Assessment and Plan - Assessment and Plan (Free Text) Assessment: FOLLOW UP WITH DR Edilia CARVALHO IN HIS OFFICE -----CALL FOR APPOINTMENT CONTINUE HOME MEDICATION NEW PRESCRIPTION GIVEN AMLODIPINE 5 MG PO DAILY [facility] 3.125 MG PO BID ASPIRIN 81 MG PO DAILY GABAPENTIN 100 MG PO BID STOP TAKING GABAPENTIN 300 MG ACTIVITY TOLERATED HEMODIALYSIS SCHEDULED CALL DR Edilia CARVALHO OR GO TO THE EMERGENCY ROOM IF SYMPTOM RETURN OR WORSENING
[2018-10-03 15:26] VITALS: BP 167/98; PULSE 87; TEMP 98.4; O2SAT 100
--- NOTE | 2018-10-03 21:32 | CP.PCM.PN ---
Subjective - Date & Time of Evaluation Date of Evaluation: 10/03/18 Time of Evaluation: 15:00 - Subjective Subjective: seen in room on renal f/u feels much better getting ready to go home was instructed to take a good care of her self Objective - Vital Signs/Intake and Output Vital Signs (last 24 hours): Temp Pulse Resp BP Pulse Ox 98.4 F 87 18 167/98 H 100 10/03/18 15:00 10/03/18 15:00 10/03/18 15:00 10/03/18 15:00 10/03/18 15:00 Intake and Output: 10/03/18 10/04/18 18:59 06:59 Intake Total 800 Balance 800 - Labs Labs: 10/02/18 10:48 10/02/18 10:00 PT 12.5 SECONDS (9.7-12.2) H 10/01/18 11:46 INR 1.1 10/01/18 11:46 APTT 41 SECONDS (21-34) H 10/01/18 11:46 Assessment and Plan - Assessment and Plan (Free Text) Assessment: ok for d/c .. to report to her out pt HD center for her scheduled HD trx
--- NOTE | 2018-10-04 13:40 | PQF ---
PROVIDER RESPONSE TEXT: Pt has Diastolic dysfunction REVIEWER QUERY TEXT: CHF Acuity and Type Congestive Heart Failure is documented in the Medical Record. Please document the type and acuity (in cludes probable or suspected) Such as: Type: -- Systolic -- Diastolic -- Combined -- Other, please specify Acuity: -- Acute -- Chronic -- Acute on chronic -- Other, please specify Also please document the underlying cause of the CHF (includes probable or suspected) The patient's Clinical Indicators include: 32 Year old female presents to ED with complain of SOB with swelling of lower extremities. Patient has ESRDand CHF. Query created by: Kimberly Coffman on 10/04/2018 8:30 AM Electronically signed by: Kim SAUNDERS 10/04/2018 1:36 PM
== END 2018-10-03 18:39 | disposition home or self-care (01) | DRG 550 ==
LOC: C.ER 20:55 → C.5S 22:41
PROVIDERS: ADMIT Internal Medicine Nephrology; ATTEND Internal Medicine Nephrology
PROC: 5A1D70Z Performance of Urinary Filtration, Intermittent, Less than 6 Hours Per Day (ICD-10-PCS; 2018-09-25)
PROC: B51W1ZZ Fluoroscopy of Dialysis Shunt/Fistula using Low Osmolar Contrast (ICD-10-PCS; 2018-10-02)
PROC: 05743DZ Dilation of Left Innominate Vein with Intraluminal Device, Percutaneous Approach (ICD-10-PCS; principal; 2018-10-02 10:00)
DX: I87.1 Compression of vein (principal); I50.33 Acute on chronic diastolic (congestive) heart failure; I13.2 Hypertensive heart and chronic kidney disease with heart failure and with stage 5 chronic kidney disease, or end stage renal disease; N18.6 End stage renal disease; E11.65 Type 2 diabetes mellitus with hyperglycemia; E11.43 Type 2 diabetes mellitus with diabetic autonomic (poly)neuropathy; E78.00 Pure hypercholesterolemia, unspecified; D63.1 Anemia in chronic kidney disease; E03.9 Hypothyroidism, unspecified; D57.3 Sickle-cell trait; G47.33 Obstructive sleep apnea (adult) (pediatric); K31.84 Gastroparesis; Z99.2 Dependence on renal dialysis; Z79.4 Long term (current) use of insulin

== ENCOUNTER 2018-10-06 10:21 | Emergency (ER) | payer MEDICAID ==
[2018-10-06 10:21] VITALS: BMI 27.3
[2018-10-06 10:40] VITALS: RESP 18; TEMP 98.4; O2SAT 100
[2018-10-06 12:21] VITALS: BP 193/107; PULSE 93
--- NOTE | 2018-10-06 13:17 | C.PDOC ---
History Of Present Illness 32 year old female presents to the ED for evaluation of bleeding at the AV graft. The patient notes she picked the surrounding and began bleeding prompting ED visit. Denies fever, chills, and any other associated symptoms. Offers no medical complaints at this time. Chief Complaint (Nursing): Vascular Access Device Problem History Per: Patient History/Exam Limitations: no limitations Onset/Duration Of Symptoms: Hrs Current Symptoms Are (Timing): Still Present Recent travel outside of the [place]: No Past Medical History Reviewed: Historical Data, Nursing Documentation, Vital Signs Vital Signs: Last Vital Signs Temp 98.4 F 10/06/18 10:32 Pulse 93 H 10/06/18 12:20 Resp 18 10/06/18 12:20 BP 193/107 H 10/06/18 12:20 Pulse Ox 100 10/06/18 12:20 - Medical History PMH: Anemia, Anxiety, Asthma, Bronchitis, CHF, Diabetes, Fractures (LEFT FOOT), Gastritis, Gastrointestinal Ulcer (gastroparesis), Gall Bladder Disease, Hepatitis, HTN, Hypercholesterolemia, Hyperthyroidism, Hypothyroidism, Kidney Stones, Pancreatitis, Peripheral Edema, Pneumonia, End Stage Renal Disease, Chronic Kidney Disease, Seizures, Sleep Apnea, Chronic Pain Surgical History: Cholecystectomy, Coronary Stent - [facility] Procedures (09/24/18) ASSISTANCE WITH RESPIRATORY VENTILATION, 24-96 HRS, CPAP (11/27/16) CAUTERY TO STOP EPISTAX (03/22/14) CENTRAL VENOUS CATHETER PLACEMENT WITH GUIDANCE (11/06/14) DIALYSIS ARTERIOVENOSTOM (01/10/14) DILATION OF L INNOM VEIN WITH INTRALUM DEV, PERC APPROACH (09/24/18) DILATION OF LEFT SUBCLAVIAN VEIN, PERCUTANEOUS APPROACH (09/03/17) DRAINAGE OF RIGHT FOOT SKIN, EXTERNAL APPROACH (07/17/16) DRAINAGE OF RIGHT LOWER ARM SKIN, EXTERNAL APPROACH (05/25/16) ESOPHAGOGASTRODUODENOSCOPY [EGD] W/CLOSED BIOPSY (03/03/14) EXCISION OF LEFT TOE PHALANX, OPEN APPROACH (07/12/17) EXCISION OF STOMACH, ENDO, DIAGN (05/09/16) EXTIRPATE MATTER FROM R LOW ARM SUBCU/FASCIA, PERC (05/25/16) EXTRACTION OF RIGHT FOOT SKIN, EXTERNAL APPROACH (05/25/16) EXTRACTION OF TOE NAIL, EXTERNAL APPROACH (07/12/17) FLEXIBLE SIGMOIDOSCOPY (10/26/14) FLUOROSCOPY OF DIALYSIS SHUNT/FISTULA USING L OSM CONTRAST (09/24/18) FLUOROSCOPY OF LEFT SUBCLAVIAN VEIN USING OTHER CONTRAST (09/03/17) FLUOROSCOPY OF R JUGULAR VEIN USING L OSM CONTRAST, GUIDANCE (12/13/15) FLUOROSCOPY OF RIGHT SUBCLAVIAN VEIN, GUIDANCE (08/07/16) HEMODIALYSIS (04/05/15) INJECT INSULIN (12/23/12) INJECT/INFUSE ELECTROLYT (12/23/12) INJECT/INFUSE NEC (01/17/15) INSERT INFUSION DEV IN R INT JUGULAR VEIN, PERC (02/23/16) INSERT VAD RESERVOIR IN CHEST SUBCU/FASCIA, OPEN (08/19/17) INSERTION OF INFUSION DEV INTO R BASILIC VEIN, PERC APPROACH (04/18/16) INSERTION OF INFUSION DEV INTO R BRACH VEIN, PERC APPROACH (02/19/17) INSERTION OF INFUSION DEV INTO R SUBCLAV VEIN, PERC APPROACH (08/29/16) INSERTION OF INFUSION DEV INTO SUP VENA CAVA, PERC APPROACH (08/19/17) INSERTION OF INFUSION DEVICE INTO R ATRIUM, PERC APPROACH (12/13/15) INSERTION OF VAD INTO CHEST SUBCU/FASCIA, OPEN APPROACH (12/13/15) MEASURE OF CARDIAC SAMPL & PRESSURE, L HEART, PERC APPROACH (10/09/16) OTHER ENDOSCOPY OF SM INTEST (08/25/14) PACKED CELL TRANSFUSION (10/26/14) PERFORMANCE OF URINARY FILTRATION, MULTIPLE (03/19/17) PERFORMANCE OF URINARY FILTRATION, SINGLE (11/27/16) PLAIN RADIOGRAPHY OF LEFT HEART USING OTHER CONTRAST (10/09/16) PLAIN RADIOGRAPHY OF MULT COR ART USING OTH CONTRAST (10/09/16) PLICATION OF VENA CAVA (03/22/14) POST NASAL PAC FOR EPIST (03/22/14) REMOVAL OF VAD FROM TRUNK SUBCU/FASCIA, OPEN APPROACH (02/23/16) RESECTION OF TOE NAIL, EXTERNAL APPROACH (08/19/17) MELVIN KENNY DIALYSIS SHUNT (03/03/14) THERAPEUTIC ERYTHROCYTAPHERESIS (10/26/14) TRANSFUSE NONAUT RED BLOOD CELLS IN PERIPH VEIN, PERC (02/19/17) ULTRASONOGRAPHY OF RIGHT AND LEFT HEART, TRANSESOPHAGEAL (02/19/17) ULTRASONOGRAPHY OF RIGHT SUBCLAVIAN VEIN, GUIDANCE (08/29/16) ULTRASONOGRAPHY OF RIGHT UPPER EXTREMITY VEINS, GUIDANCE (02/19/17) VACCINATION NEC (10/26/14) VENOUS CATHETERIZATION FOR RENAL DIALYSIS (03/03/14) Family History: States: Unknown Family Hx - Social History Hx Tobacco Use: No Hx Alcohol Use: No Hx Substance Use: No - Immunization History Hx Tetanus Toxoid Vaccination: No Hx Influenza Vaccination: Yes Hx Pneumococcal Vaccination: Yes Review Of Systems Except As Marked, All Systems Reviewed And Found Negative. Constitutional: Negative for: Fever, Chills Musculoskeletal: Positive for: Other (bleeding at the AV graft. ) Physical Exam - Physical Exam Appears: Non-toxic, No Acute Distress Skin: Warm, Dry Head: Atraumatic, Normacephalic Eye(s): bilateral: Normal Inspection Oral Mucosa: Moist Neck: Normal ROM, Supple Chest: Symmetrical, No Deformity Cardiovascular: Rhythm Regular, No Murmur Respiratory: Normal Breath Sounds, No Rales, No Rhonchi, No Wheezing Gastrointestinal/Abdominal: Normal Exam, Soft, No Tenderness Extremity: Left: Other (slow bleeding area over AV graft.), Bilateral: Atraumatic, Normal Color And Temperature, Normal ROM Neurological/Psych: Oriented x3, Normal Speech, Normal Cognition ED Course And Treatment O2 Sat by Pulse Oximetry: 100 (RA) Pulse Ox Interpretation: Normal Medical Decision Making Medical Decision Making: Progress/Notes: Placed tension bandage to the area, bleeding stopped. Tension bandage removed, pt no longer bleeding. Re-bandaged and pt to be discharged. Disposition - [facility] - Disposition: HOME/ ROUTINE Disposition Time: 12:00 Condition: GOOD Additional Instructions: JOSEFINA FONSECA, thank you for letting us take care of you today. The emergency medical care you received today was directed at your acute symptoms. If you were prescribed any medication, please fill it and take as directed. It may take several days for your symptoms to resolve. Return to the Emergency Department if your symptoms worsen, do not improve, or if you have any other problems. Please contact your doctor or call one of the physicians/clinics you have been referred to that are listed on the Patient Visit Information form that is included in your discharge packet. Bring any paperwork you were given at d ischarge with you along with any medications you are taking to your follow up visit. Our treatment cannot replace ongoing medical care by a primary care provider outside of the emergency department. Thank you for allowing the [facility] team to be part of your care today. Follow up with your dialysis unit tomorrow for your scheduled treatment. Return to the emergency room if you have any concerns. Instructions: Hemodialysis (DC) Forms: [employer] (Iraqi) - Clinical Impression Clinical Impression: ESRD (end stage renal disease) on dialysis - Scribe Statement The provider has reviewed the documentation as recorded by the Scribe (Ngoc Carlos) Provider Attestation: All medical record entries made by the Scribe were at my direction and personally dictated by me. I have reviewed the chart and agree that the record accurately reflects my personal performance of the history, physical exam, medical decision making, and the department course for this patient. I have also personally directed, reviewed, and agree with the discharge instructions and disposition.
== END 2018-10-06 12:22 | disposition home or self-care (01) ==
LOC: C.ER 10:21
DX: N18.6 End stage renal disease (principal); Z99.2 Dependence on renal dialysis

== ENCOUNTER 2018-10-12 14:29 | Inpatient (IN) | payer MEDICAID ==
[2018-10-12 14:51] VITALS: BMI 27.4
[2018-10-12 14:58] LABS: BASO # 0.1 K/uL (0.0-0.2); BASO % 1.5 % (0.0-2.0); EOS # 0.5 K/uL (0.0-0.7); EOS % 7.1 % (0.0-4.0); HEMOGLOBIN 10.3 g/dL (11.0-16.0); LYMPH # 0.7 K/uL (1.0-4.3); LYMPH % 10.7 % (20.0-40.0); MEAN CELL VOLUME 100.8 fL (81.0-99.0); MEAN CORPUSCULAR HEMOGLOBIN 31.6 pg (27.0-31.0); MEAN CORPUSCULAR HGB CONC 31.3 g/dL (33.0-37.0); MEAN PLATELET VOLUME 7.8 fL (7.2-11.7); MONO # 0.4 K/uL (0.0-0.8); MONO % 5.2 % (0.0-10.0); NEUT # 5.2 K/uL (1.8-7.0); NEUT % 75.5 % (50.0-75.0); NRBC % 0.1 % (0.0-2.0); RBC 3.26 Mil/uL (3.80-5.20); RED CELL DISTRIBUTION WIDTH 16.9 % (11.5-14.5); WHITE BLOOD COUNT 6.8 K/uL (4.8-10.8)
[2018-10-12 15:20] LABS: ALB/GLOB RATIO 1.4 (1.0-2.1); ALBUMIN 4.5 g/dL (3.5-5.0)
[2018-10-12] MEDS ORDERED: (Novolin R) Insulin Human Regular 100 units/ml vial IVP STA (15:20)
[2018-10-12 15:24] LABS: TROPONIN I 0.023 ng/mL (0.00-0.120)
[2018-10-12] MEDS ORDERED: (Novolin R) Insulin Human Regular 100 units/ml vial ONE (15:28)
--- NOTE | 2018-10-12 16:11 | C.PDOC ---
History Of Present Illness 32 year old female with a history of acute on chronic abdominal pain, gastroenteritis, uncontrolled diabetes, and constipation presents to the ED via [facility] for evaluation of irregular bowel movements associated with nausea. Pt has many prior evaluations for the same symptoms. She notes MWF dialysis, last completed dialysis was yesterday. Denies fever, chills, vomiting, and any other associated symptoms. Time Seen by Provider: 10/12/18 14:30 Chief Complaint (Nursing): Abdominal Pain History Per: Patient History/Exam Limitations: no limitations Onset/Duration Of Symptoms: Hrs Current Symptoms Are (Timing): Still Present Associated Symptoms: Nausea. denies: Fever, Chills, Vomiting Recent travel outside of the [place]: No Past Medical History Reviewed: Historical Data, Nursing Documentation, Vital Signs Vital Signs: Last Vital Signs Temp 98.9 F 10/12/18 14:34 Pulse 115 H 10/12/18 14:34 Resp 26 H 10/12/18 14:34 BP 181/93 H 10/12/18 14:34 Pulse Ox 93 L 10/12/18 14:34 - Medical History PMH: Anemia, Anxiety, Asthma, Bronchitis, CHF, Diabetes, Fractures (LEFT FOOT), Gastritis, Gastrointestinal Ulcer (gastroparesis), Gall Bladder Disease, Hepatitis, HTN, Hypercholesterolemia, Hyperthyroidism, Hypothyroidism, Kidney Stones, Pancreatitis, Peripheral Edema, Pneumonia, End Stage Renal Disease, Chronic Kidney Disease, Seizures, Sleep Apnea, Chronic Pain Surgical History: Cholecystectomy, Coronary Stent - [facility] Procedures (09/24/18) ASSISTANCE WITH RESPIRATORY VENTILATION, 24-96 HRS, CPAP (11/27/16) CAUTERY TO STOP EPISTAX (03/22/14) CENTRAL VENOUS CATHETER PLACEMENT WITH GUIDANCE (11/06/14) DIALYSIS ARTERIOVENOSTOM (01/10/14) DILATION OF L INNOM VEIN WITH INTRALUM DEV, PERC APPROACH (09/24/18) DILATION OF LEFT SUBCLAVIAN VEIN, PERCUTANEOUS APPROACH (09/03/17) DRAINAGE OF RIGHT FOOT SKIN, EXTERNAL APPROACH (07/17/16) DRAINAGE OF RIGHT LOWER ARM SKIN, EXTERNAL APPROACH (05/25/16) ESOPHAGOGASTRODUODENOSCOPY [EGD] W/CLOSED BIOPSY (03/03/14) EXCISION OF LEFT TOE PHALANX, OPEN APPROACH (07/12/17) EXCISION OF STOMACH, ENDO, DIAGN (05/09/16) EXTIRPATE MATTER FROM R LOW ARM SUBCU/FASCIA, PERC (05/25/16) EXTRACTION OF RIGHT FOOT SKIN, EXTERNAL APPROACH (05/25/16) EXTRACTION OF TOE NAIL, EXTERNAL APPROACH (07/12/17) FLEXIBLE SIGMOIDOSCOPY (10/26/14) FLUOROSCOPY OF DIALYSIS SHUNT/FISTULA USING L OSM CONTRAST (09/24/18) FLUOROSCOPY OF LEFT SUBCLAVIAN VEIN USING OTHER CONTRAST (09/03/17) FLUOROSCOPY OF R JUGULAR VEIN USING L OSM CONTRAST, GUIDANCE (12/13/15) FLUOROSCOPY OF RIGHT SUBCLAVIAN VEIN, GUIDANCE (08/07/16) HEMODIALYSIS (04/05/15) INJECT INSULIN (12/23/12) INJECT/INFUSE ELECTROLYT (12/23/12) INJECT/INFUSE NEC (01/17/15) INSERT INFUSION DEV IN R INT JUGULAR VEIN, PERC (02/23/16) INSERT VAD RESERVOIR IN CHEST SUBCU/FASCIA, OPEN (08/19/17) INSERTION OF INFUSION DEV INTO R BASILIC VEIN, PERC APPROACH (04/18/16) INSERTION OF INFUSION DEV INTO R BRACH VEIN, PERC APPROACH (02/19/17) INSERTION OF INFUSION DEV INTO R SUBCLAV VEIN, PERC APPROACH (08/29/16) INSERTION OF INFUSION DEV INTO SUP VENA CAVA, PERC APPROACH (08/19/17) INSERTION OF INFUSION DEVICE INTO R ATRIUM, PERC APPROACH (12/13/15) INSERTION OF VAD INTO CHEST SUBCU/FASCIA, OPEN APPROACH (12/13/15) MEASURE OF CARDIAC SAMPL & PRESSURE, L HEART, PERC APPROACH (10/09/16) OTHER ENDOSCOPY OF SM INTEST (08/25/14) PACKED CELL TRANSFUSION (10/26/14) PERFORMANCE OF URINARY FILTRATION, MULTIPLE (03/19/17) PERFORMANCE OF URINARY FILTRATION, SINGLE (11/27/16) PLAIN RADIOGRAPHY OF LEFT HEART USING OTHER CONTRAST (10/09/16) PLAIN RADIOGRAPHY OF MULT COR ART USING OTH CONTRAST (10/09/16) PLICATION OF VENA CAVA (03/22/14) POST NASAL PAC FOR EPIST (03/22/14) REMOVAL OF VAD FROM TRUNK SUBCU/FASCIA, OPEN APPROACH (02/23/16) RESECTION OF TOE NAIL, EXTERNAL APPROACH (08/19/17) MELVIN KENNY DIALYSIS SHUNT (03/03/14) THERAPEUTIC ERYTHROCYTAPHERESIS (10/26/14) TRANSFUSE NONAUT RED BLOOD CELLS IN PERIPH VEIN, PERC (02/19/17) ULTRASONOGRAPHY OF RIGHT AND LEFT HEART, TRANSESOPHAGEAL (02/19/17) ULTRASONOGRAPHY OF RIGHT SUBCLAVIAN VEIN, GUIDANCE (08/29/16) ULTRASONOGRAPHY OF RIGHT UPPER EXTREMITY VEINS, GUIDANCE (02/19/17) VACCINATION NEC (10/26/14) VENOUS CATHETERIZATION FOR RENAL DIALYSIS (03/03/14) Family History: States: Unknown Family Hx - Social History Hx Tobacco Use: No Hx Alcohol Use: No Hx Substance Use: No - Immunization History Hx Tetanus Toxoid Vaccination: No Hx Influenza Vaccination: Yes Hx Pneumococcal Vaccination: Yes Review Of Systems Except As Marked, All Systems Reviewed And Found Negative. Constitutional: Negative for: Fever, Chills Gastrointestinal: Positive for: Nausea, Other (irregular bowel movements.). Negative for: Vomiting Physical Exam - Physical Exam Appears: Non-toxic, No Acute Distress, Other (standing and dancing in the ED which normal. ) Skin: Warm, Dry Head: Atraumatic, Normacephalic Eye(s): bilateral: Normal Inspection Oral Mucosa: Moist Extremity: Bilateral: Atraumatic, Normal Color And Temperature, Normal ROM Neurological/Psych: Oriented x3, Normal Speech Additional Physical Exam Comments: Pt doesn't want to lay on the bed for a physical exam. ED Course And Treatment - Laboratory Results Result Diagrams: 10/12/18 14:55 10/12/18 14:55 Lab Results: Troponin I 0.0230 ng/mL (0.00-0.120) 10/12/18 14:55 Total Bilirubin 0.5 mg/dL (0.2-1.3) 10/12/18 14:55 AST 33 U/L (14-36) 10/12/18 14:55 ALT 18 U/L (9-52) 10/12/18 14:55 Alkaline Phosphatase 184 U/L (38-126) H D 10/12/18 14:55 Total Protein 7.7 g/dL (6.3-8.3) 10/12/18 14:55 Albumin 4.5 g/dL (3.5-5.0) 10/12/18 14:55 Globulin 3.2 gm/dL (2.2-3.9) 10/12/18 14:55 Albumin/Globulin Ratio 1.4 (1.0-2.1) 10/12/18 14:55 Lipase 101 U/L (23-300) 10/12/18 14:55 Beta HCG, Quant < 2.39 mIU/ML 10/12/18 15:22 Lab Interpretation: Abnormal (qhcg neg) Urine POC: Negative O2 Sat by Pulse Oximetry: 93 Pulse Ox Interpretation: Abnormal - Radiology CXR: Interpreted by Me CXR Interpretation: Yes: Cardiomegaly, Other (+ mild venous congestion) Reevaluation Time: 16:11 Reassessment Condition: Unchanged - Physician Consult Information Outcome Of Conversation: 1610: d/w Dr. Yoly Sexton- PMD, in ED, ok to admit Medical Decision Making Medical Decision Making: Initial plan: -EKG -Blood sent. -Obstructions XRAY -Novolin R -Zofran -HCG Urine -Urinalysis Progress/Update: Pt refuses to have an EKG. Multiple requests for dilaudid. 4pm: Spoke with Dr. Edilia Sexton in the ER who accepted admission. decline narcotics for constipation pain as laxatives would be therapeutic. Disposition Doctor Will See Patient In The: Hospital Counseled Patient/Family Regarding: Diagnosis - Disposition Disposition: HOSPITALIZED Disposition Time: 16:12 Condition: GOOD - Clinical Impression Clinical Impression: Abdominal pain - Scribe Statement The provider has reviewed the documentation as recorded by the Scribe (Ngoc Carlos) Provider Attestation: All medical record entries made by the Scribe were at my direction and personally dictated by me. I have reviewed the chart and agree that the record accurately reflects my personal performance of the history, physical exam, medical decision making, and the department course for this patient. I have also personally directed, reviewed, and agree with the discharge instructions and disposition.
--- NOTE | 2018-10-12 16:33 | CP.PCM.HP ---
Past Patient History - Infectious Disease Hx of Infectious Diseases: None - Tetanus Immunizations Tetanus Immunization: Unknown - Past Medical History & Family History Past Medical History?: Yes - Past Social History Smoking Status: Never Smoked - CARDIAC Hx Congestive Heart Failure: Yes Hx Hypercholesterolemia: Yes Hx Hypertension: Yes Hx Peripheral Edema: Yes - PULMONARY Hx Asthma: Yes Hx Bronchitis: Yes Hx Pneumonia: Yes Hx Sleep Apnea: Yes - NEUROLOGICAL Hx Seizures: Yes - HEENT Hx HEENT Problems: Yes Hx Cataracts: Yes (BOTH EYES) Hx Glaucoma: Yes (BOTH EYES) - RENAL Hx Chronic Kidney Disease: Yes Hx Kidney Stones: Yes - ENDOCRINE/METABOLIC Hx Hyperthyroidism: Yes Hx Hypothyroidism: Yes - HEMATOLOGICAL/ONCOLOGICAL Hx Anemia: Yes - INTEGUMENTARY Hx Dermatological Problems: Yes Other/Comment: DRY ITCHY SKIN ;multiple/generalized dark spots on skin. left toe blister - MUSCULOSKELETAL/RHEUMATOLOGICAL Hx Fractures: Yes (LEFT FOOT) - GASTROINTESTINAL Hx Gall Bladder Disease: Yes Hx Gastritis: Yes Hx Pancreatitis: Yes - PSYCHIATRIC Hx Anxiety: Yes Hx Substance Use: No - SURGICAL HISTORY Hx Cholecystectomy: Yes Hx Coronary Stent: Yes - ANESTHESIA Hx Anesthesia: Yes Hx Anesthesia Reactions: No Hx Malignant Hyperthermia: No Meds Allergies/Adverse Reactions: Allergies Allergy/AdvReac Type Severity Reaction Status Date / Time ketorolac tromethamine Allergy RASH Verified 10/12/18 14:41 [From Toradol] latex Allergy RASH Verified 10/12/18 14:41 morphine Allergy RASH Verified 10/12/18 14:41 tramadol Allergy RASH Verified 10/12/18 14:41 hydromorphone AdvReac ITCHING Verified 10/12/18 14:41 Results - Vital Signs Recent Vital Signs: Last Vital Signs Temp 98.9 F 10/12/18 14:34 Pulse 115 H 10/12/18 14:34 Resp 26 H 10/12/18 14:34 BP 181/93 H 10/12/18 14:34 Pulse Ox 93 L 10/12/18 16:12 - Labs Result Diagrams: 10/12/18 14:55 10/12/18 14:55 Labs: Laboratory Results - last 24 hr 10/12/18 10/12/18 10/12/18 14:55 14:55 15:22 WBC 6.8 RBC 3.26 L Hgb 10.3 L D Hct 32.9 L MCV 100.8 H MCH 31.6 H MCHC 31.3 L RDW 16.9 H Plt Count 379 MPV 7.8 Neut % (Auto) 75.5 H Lymph % (Auto) 10.7 L [place] % (Auto) 5.2 Eos % (Auto) 7.1 H Baso % (Auto) 1.5 Neut # (Auto) 5.2 Lymph # (Auto) 0.7 L [place] # (Auto) 0.4 Eos # (Auto) 0.5 Baso # (Auto) 0.1 Sodium 133 Potassium 4.6 Chloride 93 L Carbon Dioxide 24 Anion Gap 21 H BUN 48 H Creatinine 5.7 H Est GFR ( Amer) 11 Est GFR (Non-Af Amer) 9 Random Glucose 577 H* D Calcium 9.0 Total Bilirubin 0.5 AST 33 ALT 18 Alkaline Phosphatase 184 H D Troponin I 0.0230 Total Protein 7.7 Albumin 4.5 Globulin 3.2 Albumin/Globulin Ratio 1.4 Lipase 101 Beta HCG, Quant < 2.39
[2018-10-12] MEDS ORDERED: DiphenhydrAMINE 50 mg/ml Inj ONE (16:41)
[2018-10-12] MEDS: DiphenhydrAMINE 50 mg/ml Inj IVP SCH ×2 (16:43→20:43)
[2018-10-12] MEDS: HYDROmorphone 1 mg/ml ISec IVP PRN ×2 (16:48→20:48)
[2018-10-12] MEDS: (Novolin R) Insulin Human Regular 100 units/ml vial SC SCH ×2 (17:30→22:23)
--- NOTE | 2018-10-12 18:06 | RAD ---
Date of service: 10/12/2018 PROCEDURE: Radiographs of the chest and abdomen (obstructive series) HISTORY: Abdominal pain COMPARISON: Comparison made with chest radiograph 09/28/2018.. Comparison also made with abdominal radiograph dated 09/22/2017. TECHNIQUE: AP radiograph of the chest, with upright and supine radiographs of the abdomen. FINDINGS: CHEST: Lungs: Diffuse bilateral pulmonary infiltrates possibly due to pulmonary venous congestion however bilateral pneumonia not excluded. Cardiovascular: Heart is enlarged... Again noted is an endovascular stent graft which appears to be located in the distribution of the distal right brachiocephalic vein. No aortic atherosclerotic calcification present Pleura: No pleural fluid. No pneumothorax. Other findings: In situ right sided MediPort with tip in the SVC. Redemonstrated is radiopaque wire and/or tubing overlying right shoulder girdle. Clinical correlation ABDOMEN AND PELVIS: Bowel: . No evidence of mechanical obstruction however findings consistent with constipation.. Free air: None. Bones: Unremarkable. Other findings: In situ IVC filter located at approximately the lower L1 through the L2-L3 level. Apparent left venous access catheter however clinical correlation recommended. Findings consistent with IMPRESSION: Diffuse bilateral infiltrates most consistent with pulmonary venous congestion however pneumonic bilateral pneumonia cannot be completely excluded Findings consistent with constipation.
[2018-10-12] MEDS: Sucralfate 1 gm/10 ml Oral Susp UD PO SCH ×2 (18:45→22:18)
[2018-10-12] MEDS: (Lantus) Insulin Glargine, Recombinant SC SCH (22:22)
[2018-10-13] MEDS: DiphenhydrAMINE 50 mg/ml Inj IVP SCH ×3 (00:49→08:40)
[2018-10-13] MEDS: HYDROmorphone 1 mg/ml ISec IVP PRN ×6 (00:50→21:29)
--- NOTE | 2018-10-13 04:00 | CP.PCM.PCO ---
Physician Communication Note - Physician Communication Note Physician Communication Note: I was called to see the pt due to elevated BP
[2018-10-13] MEDS ORDERED: HYDROmorphone 1 mg/ml ISec IVP STA (04:10)
--- NOTE | 2018-10-13 06:12 | PCM.RRT ---
[facility] Nurses Assessment - Situation Date: 10/13/18 Room Number: 353A [facility] Reason for Call: Hypertension (I was called to see the pt due to high blood pressure. On evaluation, pt is squatting repeatedly, moving her legs around. When asked what is bothering her, she requests pain medication for abdominal pain. She states that she does not care about her elevated blood pressure and when asked if we could remasure her vitals while she is more relaxed, she adamantly refuses. I was able to listen to her lungs and heart. She was tachycardic with normal s1 and s2, lungs were CTA bilaterally. Pt denies any dizziness, chest pain, lightheadedness. She only complains of abdominal pain. She repeatedly asks myself and RNs to leave the room: "leave me alone!" She refuses blood pressure medications, and would only like pain medications.) - IV IV Inserted during [facility]?: No - Recommendations Notifications: Attending Physician (Call placed to Dr. Edilia Sexton by RN), Consultations (Psychiatry consulted)
[2018-10-13] MEDS ORDERED: Nitroglycerin 2% Ointment Foilpak UD TOP ONE (07:54)
--- NOTE | 2018-10-13 07:56 | PCM.RRT ---
<TeeMichelle S. - Last Filed: 10/13/18 08:10> CASH MANAGER Nurses Assessment - Situation Date: 10/13/18 Time CASH MANAGER was called: 07:47 CASH MANAGER Responder Arrival Time:: 07:50 CASH MANAGER Location:: Med/Oncology Room Number: 353A CASH MANAGER Reason for Call: Hypertension (I was called to see the pt due to high blood pressure. On evaluation, pt is squatting repeatedly, moving her legs around. When asked what is bothering her, she requests pain medication for abdominal pain. She states that she does not care about her elevated blood pressure and when asked if we could remasure her vitals while she is more relaxed, she adamantly refuses. I was able to listen to her lungs and heart. She was tachycardic with normal s1 and s2, lungs were CTA bilaterally. Pt denies any dizziness, chest pain, lightheadedness. She only complains of abdominal pain. She repeatedly asks myself and RNs to leave the room: "leave me alone!" She refuses blood pressure medications, and would only like pain medications.) - IV IV Inserted during CASH MANAGER?: No - Recommendations Notifications: Attending Physician (Call placed to Dr. Edilia Sexton by RN), Consultations (Psychiatry consulted) - Neurological Status (Select all that apply): Alert - Constitutional Appears: Agitated - Head Head Exam: ATRAUMATIC, NORMAL INSPECTION - Eyes Eye Exam: EOMI, Normal appearance - Respiratory Exam Respiratory Exam: Clear to Ausculation Bilateral, NORMAL BREATHING PATTERN - Cardiovascular Exam Cardiovascular Exam: Tachycardia, REGULAR RHYTHM, +S1, +S2 - GI/Abdominal Exam GI & Abdominal Exam: Soft, Normal Bowel Sounds. absent: Distended, Tenderness - Neurological Exam Neurological Exam: Alert, Awake, Oriented x3 - Extremities Exam Extremities Exam: absent: Pedal Edema Plan - Assessment of Findings&Treatment Plan 32 year old female with ESRD and diabetes CASH MANAGER is called for hypertensive urgency and pain. Upon arrival patient is agitated she is moving from side to side, completing leg extensions and complaining of chronic pain. Patient states she always receives Dilaudid for pain and she states she also feels nauseated. Vitals were B/P 205/101; HR 114; Temp 98.2; O2 98% RA. Patient was given Nitro Paste half an inch vitals: B/P 184/139; HR 111. Patient is also being given Labetolol 10mg IV once and Zofran 4mg IV. Blood work was also ordered - CBC, CMP, Mag and Phos. PMD, Dr. Edilia Sexton was called x3. <Purvi Quezada V - Last Filed: 10/13/18 15:50> CASH MANAGER Nurses Assessment - Vital Signs Vital Signs: Rapid Response Vital Sign Blood Pressure 238/132 Pulse Rate 106 Respiratory Rate 20 Temperature 97.9 F Oxygen Saturation 99 Attending/Attestation - Attestation I have personally seen and examined this patient.: Yes I have fully participated in the care of the patient.: Yes I have reviewed all pertinent clinical information, including history, physical exam and plan: Yes Notes (Text): Brief hospitalist note Rapid response called for hypertensive urgency This is a 32-year-old female history of past diabetes, dialysis, Dilaudid dependence comes in for for acute on chronic abdominal pain, diabetic gastroparesis comes in for severe abdominal pain. Patient was a rapid response this morning for hypertensive urgency patient noted to be stopping her feet like a petulant child is screaming that she wants her pain medication she is both doing a dance consistent of a care he needs to pee as well as moving her legs up and down like she is having leg cramps she is screaming in pain asking for pain medication her last pain medication was about 4 AM this morning. Given the patient reporting abdominal pain" overall I did give her nitro patch as well as labetalol 10 mg IV push as well as an hour of her clonidine since she has been without her clonidine for since last Sunday. Patient was strongly advised that that her that if she does not keep on she will likely give herself a stroke given her hypertension as well as her resistance to taking her p.o. medications. Patient is not throwing up or having diarrhea or not clutching pain she is quite benign. Given the patient needs her antihypertensive and it would be much safer the patient to be on telemetry floor where nursing staff could give her IV BP meds as needed. Patient dialysis days are Sunday. Patient is also order for mineral enema given that the obstructive series that she completed yesterday noted for constipation as well. Blood work was not ordered for this morning did order blood work for the patient nursing notify Dr. Edilia Sexton in regards to patient.
[2018-10-13] MEDS ORDERED: Labetalol 25mg/5ml Syringe IVP ONE (08:00)
[2018-10-13] MEDS ORDERED: Nitroglycerin 0.4 mg/hr Top Patch TD ONE (08:00)
[2018-10-13] MEDS ORDERED: Mineral Oil Enema 135 ml RC ONE (08:15)
[2018-10-13] MEDS: (Novolin R) Insulin Human Regular 100 units/ml vial SC SCH ×4 (08:50→22:23)
[2018-10-13] MEDS: Sucralfate 1 gm/10 ml Oral Susp UD PO SCH ×4 (09:08→22:20)
[2018-10-13] MEDS: Pantoprazole 40 mg EC Tab PO SCH (09:13)
[2018-10-13] MEDS ORDERED: HYDROmorphone 1 mg/ml ISec IVP ONE (10:30)
--- NOTE | 2018-10-13 15:16 | CP.PCM.PN ---
Subjective - Date & Time of Evaluation Date of Evaluation: 10/13/18 Time of Evaluation: 09:00 - Subjective Subjective: clinically same Objective - Vital Signs/Intake and Output Vital Signs (last 24 hours): Temp Pulse Resp BP Pulse Ox 97.7 F 86 20 163/89 H 99 10/13/18 05:20 10/13/18 13:05 10/13/18 05:20 10/13/18 13:05 10/13/18 05:20 Intake and Output: 10/13/18 10/13/18 06:59 18:59 Intake Total 250 120 Output Total 0 Balance 250 120 - Medications Medications: Current Medications Amlodipine Besylate (Norvasc) 5 mg PO DAILY [facility] Last Admin: 10/13/18 09:09 Dose: 5 mg Aspirin (Ecotrin) 81 mg PO DAILY [facility] Last Admin: 10/13/18 09:09 Dose: 81 mg Calcium Acetate (Phoslo) 667 mg PO TID [facility] Last Admin: 10/13/18 13:08 Dose: 667 mg Carvedilol (Coreg) 3.125 mg PO BID [facility] Last Admin: 10/13/18 09:09 Dose: 3.125 mg Clonidine HCl (Catapres) 0.3 mg PO TID [facility] Last Admin: 10/13/18 13:08 Dose: 0.3 mg Diphenhydramine HCl (Benadryl) 25 mg PO Q4 PRN PRN Reason: Itching / Pruritus Last Admin: 10/13/18 12:52 Dose: 25 mg Docusate Sodium (Colace) 100 mg PO TID [facility] Last Admin: 10/13/18 13:08 Dose: 100 mg Gabapentin (Neurontin) 100 mg PO BID [facility] Last Admin: 10/13/18 09:09 Dose: 100 mg Heparin Sodium (Porcine) (Heparin) 5,000 units SC Q12 [facility] Last Admin: 10/13/18 09:11 Dose: Not Given Hydromorphone HCl (Dilaudid) 1 mg IVP Q4H PRN PRN Reason: Pain, severe (8-10) Last Admin: 10/13/18 12:51 Dose: 1 mg Insulin Glargine (Lantus) 25 unit SC [facility] Last Admin: 10/12/18 22:22 Dose: 25 unit Insulin Human Regular (Novolin R) 0 unit SC ACHS [facility]; Protocol Last Admin: 10/13/18 12:30 Dose: 8 unit Ondansetron HCl (Zofran Tab) 8 mg PO Q8H PRN PRN Reason: Nausea/Vomiting Last Admin: 10/12/18 20:56 Dose: 8 mg Pantoprazole Sodium (Protonix Ec Tab) 40 mg PO DAILY [facility] Last Admin: 10/13/18 09:13 Dose: Not Given Sucralfate (Carafate Oral Susp) 1 gm PO QID [facility] Last Admin: 10/13/18 13:08 Dose: 1 gm - Labs Labs: 10/12/18 14:55 10/12/18 14:55 - Constitutional Appears: Well - Head Exam Head Exam: ATRAUMATIC, NORMAL INSPECTION, NORMOCEPHALIC - Eye Exam Eye Exam: EOMI, Normal appearance, PERRL Pupil Exam: NORMAL ACCOMODATION, PERRL - ENT Exam ENT Exam: Mucous Membranes Moist, Normal Exam - Neck Exam Neck Exam: Full ROM, Normal Inspection. absent: Lymphadenopathy - Respiratory Exam Respiratory Exam: Decreased Breath Sounds - Cardiovascular Exam Cardiovascular Exam: REGULAR RHYTHM, +S1, +S2 - GI/Abdominal Exam GI & Abdominal Exam: Soft, Diminished Bowel Sounds - Rectal Exam Rectal Exam: Deferred
[2018-10-13] MEDS: (Lantus) Insulin Glargine, Recombinant SC SCH (21:33)
[2018-10-14] MEDS: HYDROmorphone 1 mg/ml ISec IVP PRN ×5 (01:54→19:43)
[2018-10-14] MEDS: (Novolin R) Insulin Human Regular 100 units/ml vial SC SCH ×4 (07:55→22:42)
[2018-10-14] MEDS: Pantoprazole 40 mg EC Tab PO SCH (09:49)
[2018-10-14] MEDS: Sucralfate 1 gm/10 ml Oral Susp UD PO SCH ×4 (09:50→21:46)
[2018-10-14] MEDS ORDERED: DiphenhydrAMINE 50 mg/ml Inj IVP PRN ×2 (16:32→16:47)
[2018-10-14] MEDS: Epoetin Alfa 10,000 unit/ml Dialysis IV SCH (16:59)
[2018-10-14] MEDS ORDERED: DiphenhydrAMINE 50 mg/ml Inj IVP SCH (19:00)
--- NOTE | 2018-10-14 21:27 | CP.PCM.PN ---
Subjective - Date & Time of Evaluation Date of Evaluation: 10/14/18 Time of Evaluation: 10:00 - Subjective Subjective: clinically same Objective - Vital Signs/Intake and Output Vital Signs (last 24 hours): Temp Pulse Resp BP Pulse Ox 98 F 86 20 152/94 H 100 10/14/18 19:18 10/14/18 21:10 10/14/18 19:18 10/14/18 19:18 10/14/18 19:18 Intake and Output: 10/14/18 10/15/18 18:59 06:59 Intake Total 360 Balance 360 - Medications Medications: Current Medications Amlodipine Besylate (Norvasc) 5 mg PO DAILY [facility] Last Admin: 10/14/18 09:51 Dose: Not Given Aspirin (Ecotrin) 81 mg PO DAILY [facility] Last Admin: 10/14/18 09:49 Dose: 81 mg Calcium Acetate (Phoslo) 667 mg PO TID [facility] Last Admin: 10/14/18 18:28 Dose: Not Given Carvedilol (Coreg) 3.125 mg PO BID [facility] Last Admin: 10/14/18 18:28 Dose: Not Given Clonidine HCl (Catapres) 0.3 mg PO TID [facility] Last Admin: 10/14/18 18:28 Dose: Not Given Diphenhydramine HCl (Benadryl) 25 mg PO Q4 PRN PRN Reason: Itching / Pruritus Last Admin: 10/14/18 19:43 Dose: 25 mg Diphenhydramine HCl (Benadryl) 25 mg IVP Q4H [facility] Docusate Sodium (Colace) 100 mg PO TID [facility] Last Admin: 10/14/18 18:28 Dose: Not Given Epoetin James (Procrit) 10,000 unit IV MWF [facility] Last Admin: 10/14/18 16:59 Dose: 10,000 unit Gabapentin (Neurontin) 100 mg PO BID [facility] Last Admin: 10/14/18 18:28 Dose: Not Given Heparin Sodium (Porcine) (Heparin) 5,000 units SC Q12 [facility] Last Admin: 10/14/18 09:56 Dose: Not Given Hydromorphone HCl (Dilaudid) 1 mg IVP Q4H PRN PRN Reason: Pain, severe (8-10) Last Admin: 10/14/18 19:43 Dose: 1 mg Insulin Glargine (Lantus) 25 unit SC HS [facility] Last Admin: 10/13/18 21:33 Dose: 25 unit Insulin Human Regular (Novolin R) 0 unit SC [facility]; Protocol Last Admin: 10/14/18 18:28 Dose: Not Given Ondansetron HCl (Zofran Tab) 8 mg PO Q8H PRN PRN Reason: Nausea/Vomiting Last Admin: 10/12/18 20:56 Dose: 8 mg Pantoprazole Sodium (Protonix Ec Tab) 40 mg PO DAILY [facility] Last Admin: 10/14/18 09:49 Dose: 40 mg Sucralfate (Carafate Oral Susp) 1 gm PO QID [facility] Last Admin: 10/14/18 18:28 Dose: Not Given - Labs Labs: 10/12/18 14:55 10/12/18 14:55 - Constitutional Appears: Well - Head Exam Head Exam: ATRAUMATIC, NORMAL INSPECTION, NORMOCEPHALIC - Eye Exam Eye Exam: EOMI, Normal appearance, PERRL Pupil Exam: NORMAL ACCOMODATION, PERRL - ENT Exam ENT Exam: Mucous Membranes Moist, Normal Exam - Neck Exam Neck Exam: Full ROM, Normal Inspection. absent: Lymphadenopathy - Respiratory Exam Respiratory Exam: Decreased Breath Sounds - Cardiovascular Exam Cardiovascular Exam: REGULAR RHYTHM, +S1, +S2 - GI/Abdominal Exam GI & Abdominal Exam: Soft, Diminished Bowel Sounds - Rectal Exam Rectal Exam: Deferred
[2018-10-14] MEDS: (Lantus) Insulin Glargine, Recombinant SC SCH (21:47)
[2018-10-15] MEDS: HYDROmorphone 1 mg/ml ISec IVP PRN ×6 (00:09→20:49)
[2018-10-15] MEDS: (Novolin R) Insulin Human Regular 100 units/ml vial SC SCH ×4 (08:13→22:15)
[2018-10-15] MEDS: Sucralfate 1 gm/10 ml Oral Susp UD PO SCH ×4 (09:14→22:14)
[2018-10-15] MEDS: Pantoprazole 40 mg EC Tab PO SCH (09:15)
--- NOTE | 2018-10-15 11:35 | PCM.PSYCH ---
Initial Psychiatric Evaluation - Initial Psychiatric Evaluation Type of Admission: Voluntary Legal Status: Capacity Chief Complaint (in patient's own words): "Up and down" History of Present Illness and Precipitating Events: This is a 32 year old female, single without children, unemployed on disability, living with her mother and sister in [place] presenting to the hospital for nausea, vomiting, and abdominal pain. Psych was consulted to rule out depression. Patient states she came to the hospital because of complications from her gastroparesis, which caused severe abdominal pain, nausea, and vomiting since Sunday. Patient states her mood usually fluctuates between up and down. She is not feeling down currently. Her depressed mood coincides with thoughts of wishing she was and not wanting to live in agony. Patient reports her chronic medical conditions requiring numerous hospitalizations and belief that others think she is a drug addict cause her to feel this way. Patient states prior psychiatric [facility] at [facility], [facility] and [facility] for depressed mood and thoughts of self-harm. Patient reports depressed mood and trouble sleeping, but denies suicidal or homicidal ideations, auditory or visual hallucinations, or paranoia at this time. Patient denies alcohol, marijuana, cigarette, or drug abuse. Patient appears anxious but is not in acute distress. Psych Hx: depression, suicidal ideations, suicide attempt (2009) Fam Psych: denies PMHx: ESRD, CHF, diabetes, gastroparesis, HTN, HLD Meds: clonidine, amlodipine, sucralfate, pantoprazole, ondansetron, insulin regular/glargine, gabapentin, docusate, carvedilol, aspirin Allergies: denies SurgHx: denies Current Medications: Active Medications Generic Name Dose Route Start Last Admin Trade Name Margot PRN Reason Stop Dose Admin Amlodipine Besylate 5 mg 10/13/18 10:00 10/15/18 09:14 Norvasc PO 5 mg DAILY [facility] Administration Aspirin 81 mg 10/13/18 10:10/15/18 09:15 Ecotrin PO 81 mg DAILY [facility] Administration Calcium Acetate 667 mg 10/12/18 18:00 10/15/18 09:15 Phoslo PO 667 mg TID [facility] Administration Carvedilol 3.125 mg 10/12/18 18:00 10/15/18 09:15 Coreg PO 3.125 mg BID [facility] Administration Clonidine HCl 0.3 mg 10/13/18 14:00 10/15/18 09:14 Catapres PO 0.3 mg TID [facility] Administration Diphenhydramine HCl 25 mg 10/14/18 22:39 10/15/18 08:12 Benadryl PO 25 mg Q4 PRN Administration Itching / Pruritus Docusate Sodium 100 mg 10/12/18 18:00 10/15/18 09:14 Colace PO 100 mg TID [facility] Administration Epoetin James 10,000 unit 10/14/18 17:00 10/14/18 16:59 Procrit IV 10,000 unit MWF [facility] Administration Gabapentin 100 mg 10/12/18 18:00 10/15/18 09:14 Neurontin PO 100 mg BID [facility] Administration Heparin Sodium (Porcine) 5,000 units 10/12/18 22:00 10/15/18 09:16 Heparin SC Not Given Q12 [facility] Hydromorphone HCl 1 mg 10/12/18 16:29 10/15/18 08:13 Dilaudid IVP 1 mg Q4H PRN Administration Pain, severe (8-10) Insulin Glargine 25 unit 10/12/18 22:00 10/14/18 21:47 Lantus SC 25 unit HS [facility] Administration Insulin Human Regular 0 unit 10/12/18 16:30 10/15/18 08:13 Novolin R SC 2 unit ACHS [facility] Administration Protocol Ondansetron HCl 8 mg 10/12/18 16:28 10/15/18 03:47 Zofran Tab PO 8 mg Q8H PRN Administration Nausea/Vomiting Pantoprazole Sodium 40 mg 10/13/18 10:00 10/15/18 09:15 Protonix Ec Tab PO 40 mg DAILY [facility] Administration Sucralfate 1 gm 10/12/18 18:00 10/15/18 09:14 Carafate Oral Susp PO 1 gm QID [facility] Administration Past Psychiatric History - Past Psychiatric History Previous Treatment History: Intensive Outpatient Pertinent Medical Hx (Current Medical&Sleep Prob, Allergies): Allergies Allergy/AdvReac Type Severity Reaction Status Date / Time ketorolac tromethamine Allergy RASH Verified 10/12/18 14:41 [From Toradol] latex Allergy RASH Verified 10/12/18 14:41 morphine Allergy RASH Verified 10/12/18 14:41 tramadol Allergy RASH Verified 10/12/18 14:41 hydromorphone AdvReac ITCHING Verified 10/12/18 14:41 Calcium Acetate [Phoslo] 667 mg PO TID 12/13/15 Cholecalciferol [Vitamin D 1000 IU] 1,000 unit PO DAILY 05/28/17 Docusate [Colace] 100 mg PO TID #90 cap 08/30/17 Insulin Glargine, Recombina [Lantus] 25 unit SQ HS #1 vial 08/30/17 Insulin Human Regular [Novolin R] See Protocol SC ACHS #1 vial 08/30/17 Sucralfate [Carafate Oral Susp] 1 gm PO QID #1200 ml 08/30/17 cloNIDine [Catapres] 0.3 mg PO BID #60 tab 08/30/17 Ondansetron [Zofran Tab] 8 mg PO Q8H 5 Days tab 08/27/18 Pantoprazole [Protonix EC Tab] 40 mg PO DAILY #30 ect 08/27/18 Aspirin [Ecotrin] 81 mg PO DAILY 30 Days tabec 10/03/18 Carvedilol [Coreg] 3.125 mg PO BID 30 Days tab 10/03/18 Gabapentin [Neurontin] 100 mg PO BID 30 Days cap 10/03/18 amLODIPine [Norvasc] 5 mg PO DAILY 30 Days tab 10/03/18 Review of Systems - Psychiatric Psychiatric: Abnormal Sleep Pattern, Anhedonia, Anxiety, Depression, Difficulty Concentrating. absent: Homicidal Ideation, Suicidal Ideation Mental Status Examination - Personal Presentation Personal Presentation: Looks stated age - Affect Affect: Constricted - Motor Activity Motor Activity: Calm - Reliability in Providing Information Reliability in Providing Information: Good - Speech Speech: Organized - Mood Mood: Depressed, Anxious - Formal Thought Process Formal Thought Process: No Impairment - Cognitive Functions Orientation: Person, Place, Situation, Time Sensorium: Alert Attention/Concentration: Easily distracted Estimate of Intelligence: Average Judgement: Intact, as evidence by: Insight regarding need for hospitalization Memory: Recent intact, as evidence by: Ability to recall events of the day, Remote intact, as evidenced by: Ability to recall historical events - Risk Risk: Diminished functioning - Strength & Assets Inventory Strength & Assets Inventory: Cooperative - Limitations Limitations: Other DSM 5 DX - DSM 5 DSM 5 Diagnosis: Major depressive d/o - moderate - Recommended/Plan of Treatment Treatment Recommendations and Plan of Treatment: Cymabalta for anxiety, depression, and pain Trazodone for sleep Refer for outpatient psych 32 minutes
[2018-10-15] MEDS ORDERED: Bisacodyl 5mg EC Tab PO ONE (13:32)
--- NOTE | 2018-10-15 18:58 | CP.PCM.PN ---
Subjective - Date & Time of Evaluation Date of Evaluation: 10/15/18 Time of Evaluation: 09:45 - Subjective Subjective: clinically same Objective - Vital Signs/Intake and Output Vital Signs (last 24 hours): Temp Pulse Resp BP Pulse Ox 98.5 F 88 20 161/94 H 100 10/15/18 08:30 10/15/18 11:52 10/15/18 08:30 10/15/18 08:30 10/15/18 08:30 Intake and Output: 10/15/18 10/15/18 06:59 18:59 Intake Total 800 Balance 800 - Medications Medications: Current Medications Amlodipine Besylate (Norvasc) 5 mg PO DAILY [facility] Last Admin: 10/15/18 09:14 Dose: 5 mg Aspirin (Ecotrin) 81 mg PO DAILY [facility] Last Admin: 10/15/18 09:15 Dose: 81 mg Calcium Acetate (Phoslo) 667 mg PO TID [facility] Last Admin: 10/15/18 17:30 Dose: 667 mg Carvedilol (Coreg) 3.125 mg PO BID [facility] Last Admin: 10/15/18 17:31 Dose: 3.125 mg Clonidine HCl (Catapres) 0.3 mg PO TID [facility] Last Admin: 10/15/18 17:30 Dose: 0.3 mg Diphenhydramine HCl (Benadryl) 25 mg PO Q4 PRN PRN Reason: Itching / Pruritus Last Admin: 10/15/18 16:29 Dose: 25 mg Docusate Sodium (Colace) 100 mg PO TID [facility] Last Admin: 10/15/18 17:32 Dose: 100 mg Duloxetine HCl (Cymbalta) 30 mg PO DAILY [facility] Last Admin: 10/15/18 14:15 Dose: 30 mg Epoetin James (Procrit) 10,000 unit IV MWF [facility] Last Admin: 10/14/18 16:59 Dose: 10,000 unit Gabapentin (Neurontin) 100 mg PO BID [facility] Last Admin: 10/15/18 17:30 Dose: 100 mg Heparin Sodium (Porcine) (Heparin) 5,000 units SC Q12 [facility] Last Admin: 10/15/18 09:16 Dose: Not Given Hydromorphone HCl (Dilaudid) 1 mg IVP Q4H PRN PRN Reason: Pain, severe (8-10) Last Admin: 10/15/18 16:29 Dose: 1 mg Insulin Glargine (Lantus) 25 unit SC [facility] Last Admin: 10/14/18 21:47 Dose: 25 unit Insulin Human Regular (Novolin R) 0 unit SC [facility]; Protocol Last Admin: 10/15/18 17:30 Dose: 8 unit Ondansetron HCl (Zofran Tab) 8 mg PO Q8H PRN PRN Reason: Nausea/Vomiting Last Admin: 10/15/18 03:47 Dose: 8 mg Pantoprazole Sodium (Protonix Ec Tab) 40 mg PO DAILY [facility] Last Admin: 10/15/18 09:15 Dose: 40 mg Psyllium Hydrophilic Mucilloid (Hydrocil Instant) 1 pkt PO [facility] Sucralfate (Carafate Oral Susp) 1 gm PO QID [facility] Last Admin: 10/15/18 17:33 Dose: 1 gm Trazodone HCl (Desyrel) 50 mg PO [facility] - Labs Labs: 10/12/18 14:55 10/12/18 14:55 - Constitutional Appears: Well - Head Exam Head Exam: ATRAUMATIC, NORMAL INSPECTION, NORMOCEPHALIC - Eye Exam Eye Exam: EOMI, Normal appearance, PERRL Pupil Exam: NORMAL ACCOMODATION, PERRL - ENT Exam ENT Exam: Mucous Membranes Moist, Normal Exam - Neck Exam Neck Exam: Full ROM, Normal Inspection. absent: Lymphadenopathy - Respiratory Exam Respiratory Exam: Decreased Breath Sounds - Cardiovascular Exam Cardiovascular Exam: REGULAR RHYTHM, +S1, +S2 - GI/Abdominal Exam GI & Abdominal Exam: Soft, Diminished Bowel Sounds - Rectal Exam Rectal Exam: Deferred
--- NOTE | 2018-10-15 19:11 | CP.PCM.PN ---
Subjective - Date & Time of Evaluation Date of Evaluation: 10/15/18 Time of Evaluation: 15:00 - Subjective Subjective: SEEN ON RENAL F/U HAD HD YESTERDAY FEELS MUCH BETTER ON HD M W F AND SAT Objective - Vital Signs/Intake and Output Vital Signs (last 24 hours): Temp Pulse Resp BP Pulse Ox 98.5 F 88 20 161/94 H 100 10/15/18 08:30 10/15/18 11:52 10/15/18 08:30 10/15/18 08:30 10/15/18 08:30 Intake and Output: 10/15/18 10/16/18 18:59 06:59 Intake Total 800 Balance 800 - Medications Medications: Current Medications Amlodipine Besylate (Norvasc) 5 mg PO DAILY [facility] Last Admin: 10/15/18 09:14 Dose: 5 mg Aspirin (Ecotrin) 81 mg PO DAILY [facility] Last Admin: 10/15/18 09:15 Dose: 81 mg Calcium Acetate (Phoslo) 667 mg PO TID [facility] Last Admin: 10/15/18 17:30 Dose: 667 mg Carvedilol (Coreg) 3.125 mg PO BID [facility] Last Admin: 10/15/18 17:31 Dose: 3.125 mg Clonidine HCl (Catapres) 0.3 mg PO TID [facility] Last Admin: 10/15/18 17:30 Dose: 0.3 mg Diphenhydramine HCl (Benadryl) 25 mg PO Q4 PRN PRN Reason: Itching / Pruritus Last Admin: 10/15/18 16:29 Dose: 25 mg Docusate Sodium (Colace) 100 mg PO TID [facility] Last Admin: 10/15/18 17:32 Dose: 100 mg Duloxetine HCl (Cymbalta) 30 mg PO DAILY [facility] Last Admin: 10/15/18 14:15 Dose: 30 mg Epoetin James (Procrit) 10,000 unit IV MWF [facility] Last Admin: 10/14/18 16:59 Dose: 10,000 unit Gabapentin (Neurontin) 100 mg PO BID [facility] Last Admin: 10/15/18 17:30 Dose: 100 mg Heparin Sodium (Porcine) (Heparin) 5,000 units SC Q12 [facility] Last Admin: 10/15/18 09:16 Dose: Not Given Hydromorphone HCl (Dilaudid) 1 mg IVP Q4H PRN PRN Reason: Pain, severe (8-10) Last Admin: 10/15/18 16:29 Dose: 1 mg Insulin Glargine (Lantus) 25 unit SC [facility] Last Admin: 10/14/18 21:47 Dose: 25 unit Insulin Human Regular (Novolin R) 0 unit SC [facility]; Protocol Last Admin: 10/15/18 17:30 Dose: 8 unit Ondansetron HCl (Zofran Tab) 8 mg PO Q8H PRN PRN Reason: Nausea/Vomiting Last Admin: 10/15/18 03:47 Dose: 8 mg Pantoprazole Sodium (Protonix Ec Tab) 40 mg PO DAILY [facility] Last Admin: 10/15/18 09:15 Dose: 40 mg Psyllium Hydrophilic Mucilloid (Hydrocil Instant) 1 pkt PO [facility] Sucralfate (Carafate Oral Susp) 1 gm PO QID [facility] Last Admin: 10/15/18 17:33 Dose: 1 gm Trazodone HCl (Desyrel) 50 mg PO [facility] - Labs Labs: 10/12/18 14:55 10/12/18 14:55
[2018-10-15] MEDS: (Lantus) Insulin Glargine, Recombinant SC SCH (22:15)
[2018-10-15] MEDS: Psyllium Packet PO SCH (22:15)
[2018-10-16] MEDS: HYDROmorphone 1 mg/ml ISec IVP PRN ×6 (01:29→22:37)
[2018-10-16] MEDS ORDERED: Dextrose 50% SYRINGE Inj (50 ml) IV ONE (06:58)
[2018-10-16] MEDS ORDERED: Dextrose 50% VIAL Inj (50 ml) IV ONE (07:05)
[2018-10-16] MEDS: (Novolin R) Insulin Human Regular 100 units/ml vial SC SCH ×4 (07:16→22:38)
[2018-10-16] MEDS ORDERED: DiphenhydrAMINE 50 mg/ml Inj IVP STA (10:08)
[2018-10-16] MEDS: Epoetin Alfa 10,000 unit/ml Dialysis IV SCH (10:17)
[2018-10-16] MEDS: Sucralfate 1 gm/10 ml Oral Susp UD PO SCH ×4 (10:39→22:38)
[2018-10-16] MEDS: Pantoprazole 40 mg EC Tab PO SCH (10:40)
[2018-10-16] MEDS ORDERED: Bisacodyl 5mg EC Tab PO ONE (17:16)
--- NOTE | 2018-10-16 18:58 | CP.PCM.PN ---
Subjective - Date & Time of Evaluation Date of Evaluation: 10/16/18 Time of Evaluation: 08:45 - Subjective Subjective: clinically same Objective - Vital Signs/Intake and Output Vital Signs (last 24 hours): Temp Pulse Resp BP Pulse Ox 98.8 F 74 20 145/85 97 10/16/18 16:11 10/16/18 16:11 10/16/18 16:11 10/16/18 17:51 10/16/18 16:11 Intake and Output: 10/16/18 10/16/18 06:59 18:59 Intake Total 800 Output Total 4000 Balance -3200 - Medications Medications: Current Medications Amlodipine Besylate (Norvasc) 5 mg PO DAILY [facility] Last Admin: 10/16/18 10:40 Dose: Not Given Aspirin (Ecotrin) 81 mg PO DAILY [facility] Last Admin: 10/16/18 10:40 Dose: Not Given Calcium Acetate (Phoslo) 667 mg PO TID [facility] Last Admin: 10/16/18 17:52 Dose: 667 mg Carvedilol (Coreg) 25 mg PO BID [facility] Last Admin: 10/16/18 17:51 Dose: 25 mg Clonidine HCl (Catapres) 0.3 mg PO QID [facility] Last Admin: 10/16/18 17:52 Dose: 0.3 mg Diphenhydramine HCl (Benadryl) 25 mg PO Q4 PRN PRN Reason: Itching / Pruritus Last Admin: 10/16/18 18:36 Dose: 25 mg Docusate Sodium (Colace) 100 mg PO TID [facility] Last Admin: 10/16/18 17:51 Dose: 100 mg Duloxetine HCl (Cymbalta) 30 mg PO DAILY [facility] Epoetin James (Procrit) 10,000 unit IV MWF [facility] Last Admin: 10/16/18 10:17 Dose: 10,000 unit Gabapentin (Neurontin) 100 mg PO BID [facility] Last Admin: 10/16/18 17:51 Dose: 100 mg Heparin Sodium (Porcine) (Heparin) 5,000 units SC Q12 [facility] Last Admin: 10/16/18 10:40 Dose: Not Given Hydromorphone HCl (Dilaudid) 1 mg IVP Q4H PRN PRN Reason: Pain, severe (8-10) Last Admin: 10/16/18 18:36 Dose: 1 mg Insulin Glargine (Lantus) 25 unit SC [facility] Last Admin: 10/15/18 22:15 Dose: 25 unit Insulin Human Regular (Novolin R) 0 unit SC [facility]; Protocol Last Admin: 10/16/18 17:52 Dose: 3 unit Ondansetron HCl (Zofran Tab) 8 mg PO Q8H PRN PRN Reason: Nausea/Vomiting Last Admin: 10/15/18 03:47 Dose: 8 mg Pantoprazole Sodium (Protonix Ec Tab) 40 mg PO DAILY [facility] Last Admin: 10/16/18 10:40 Dose: Not Given Psyllium Hydrophilic Mucilloid (Hydrocil Instant) 1 pkt PO [facility] Last Admin: 10/15/18 22:15 Dose: 1 pkt Sucralfate (Carafate Oral Susp) 1 gm PO QID [facility] Last Admin: 10/16/18 17:51 Dose: 1 gm Trazodone HCl (Desyrel) 50 mg PO [facility] Last Admin: 10/15/18 22:14 Dose: 50 mg - Labs Labs: 10/12/18 14:55 10/12/18 14:55 - Constitutional Appears: Well - Head Exam Head Exam: ATRAUMATIC, NORMAL INSPECTION, NORMOCEPHALIC - Eye Exam Eye Exam: EOMI, Normal appearance, PERRL Pupil Exam: NORMAL ACCOMODATION, PERRL - ENT Exam ENT Exam: Mucous Membranes Moist, Normal Exam - Neck Exam Neck Exam: Full ROM, Normal Inspection. absent: Lymphadenopathy - Respiratory Exam Respiratory Exam: Decreased Breath Sounds - Cardiovascular Exam Cardiovascular Exam: REGULAR RHYTHM, +S1, +S2 - GI/Abdominal Exam GI & Abdominal Exam: Soft, Diminished Bowel Sounds - Rectal Exam Rectal Exam: Deferred
[2018-10-16] MEDS: Psyllium Packet PO SCH ×2 (22:36→22:45)
[2018-10-16] MEDS: (Lantus) Insulin Glargine, Recombinant SC SCH (22:38)
--- NOTE | 2018-10-16 22:46 | CP.PCM.PN ---
Subjective - Date & Time of Evaluation Date of Evaluation: 10/16/18 Time of Evaluation: 15:00 - Subjective Subjective: SEEN ON RENAL F/U FEELS IMPROVED HAD HD EARLIER TODAY Objective - Vital Signs/Intake and Output Vital Signs (last 24 hours): Temp Pulse Resp BP Pulse Ox 98.8 F 74 20 145/85 97 10/16/18 16:11 10/16/18 16:11 10/16/18 16:11 10/16/18 17:51 10/16/18 16:11 Intake and Output: 10/16/18 10/17/18 18:59 06:59 Intake Total 800 Output Total 4000 Balance -3200 - Medications Medications: Current Medications Amlodipine Besylate (Norvasc) 5 mg PO DAILY [facility] Last Admin: 10/16/18 10:40 Dose: Not Given Aspirin (Ecotrin) 81 mg PO DAILY [facility] Last Admin: 10/16/18 10:40 Dose: Not Given Calcium Acetate (Phoslo) 667 mg PO TID [facility] Last Admin: 10/16/18 17:52 Dose: 667 mg Carvedilol (Coreg) 25 mg PO BID [facility] Last Admin: 10/16/18 17:51 Dose: 25 mg Clonidine HCl (Catapres) 0.3 mg PO QID [facility] Last Admin: 10/16/18 17:52 Dose: 0.3 mg Diphenhydramine HCl (Benadryl) 25 mg PO Q4 PRN PRN Reason: Itching / Pruritus Last Admin: 10/16/18 18:36 Dose: 25 mg Docusate Sodium (Colace) 100 mg PO TID [facility] Last Admin: 10/16/18 17:51 Dose: 100 mg Duloxetine HCl (Cymbalta) 30 mg PO DAILY [facility] Epoetin James (Procrit) 10,000 unit IV MWF [facility] Last Admin: 10/16/18 10:17 Dose: 10,000 unit Gabapentin (Neurontin) 100 mg PO BID [facility] Last Admin: 10/16/18 17:51 Dose: 100 mg Heparin Sodium (Porcine) (Heparin) 5,000 units SC Q12 [facility] Last Admin: 10/16/18 22:38 Dose: Not Given Hydromorphone HCl (Dilaudid) 1 mg IVP Q4H PRN PRN Reason: Pain, severe (8-10) Last Admin: 10/16/18 22:37 Dose: 1 mg Insulin Glargine (Lantus) 25 unit SC [facility] Last Admin: 10/16/18 22:38 Dose: 25 unit Insulin Human Regular (Novolin R) 0 unit SC [facility]; Protocol Last Admin: 10/16/18 22:38 Dose: Not Given Ondansetron HCl (Zofran Tab) 8 mg PO Q8H PRN PRN Reason: Nausea/Vomiting Last Admin: 10/15/18 03:47 Dose: 8 mg Pantoprazole Sodium (Protonix Ec Tab) 40 mg PO DAILY [facility] Last Admin: 10/16/18 10:40 Dose: Not Given Psyllium Hydrophilic Mucilloid (Hydrocil Instant) 1 pkt PO [facility] Last Admin: 10/16/18 22:36 Dose: 1 pkt Sucralfate (Carafate Oral Susp) 1 gm PO QID [facility] Last Admin: 10/16/18 22:38 Dose: 1 gm Trazodone HCl (Desyrel) 50 mg PO [facility] Last Admin: 10/16/18 22:37 Dose: 50 mg - Labs Labs: 10/12/18 14:55 10/12/18 14:55 Assessment and Plan - Assessment and Plan (Free Text) Assessment: ESRD ON HD M W F.. TP BE C/O ANEMIA OF CKD .. H/H STABLE] MMP P : C/O HD ON M W F AND SAT C/O ANEMIA OF CKD MANAGEMENT C/O PRESENT CARE C/O CURRENT MEDS
[2018-10-17] MEDS ORDERED: Dextrose 50% SYRINGE Inj (50 ml) IV STA (00:02)
[2018-10-17] MEDS ORDERED: Dextrose 50% SYRINGE Inj (50 ml) IV PRN (00:35)
[2018-10-17] MEDS ORDERED: Glucagon Recombinant 1 mg Inj IM PRN (00:35)
[2018-10-17] MEDS: HYDROmorphone 1 mg/ml ISec IVP PRN ×6 (02:32→22:43)
[2018-10-17] MEDS: (Novolin R) Insulin Human Regular 100 units/ml vial SC SCH ×4 (07:06→22:44)
[2018-10-17] MEDS: Pantoprazole 40 mg EC Tab PO SCH (10:56)
[2018-10-17] MEDS: Sucralfate 1 gm/10 ml Oral Susp UD PO SCH ×4 (10:57→22:43)
--- NOTE | 2018-10-17 12:34 | PCM.PYCHPN ---
Psychiatric Progress Note - Psychiatric Progress Note Patient seen today, length of contact: 15 min Patient Chief Complaint: "Tired" Problems Identified/Issues Discussed: The pt is seen, chart reviewed, case discussed with staff. Support and psychoeducation given. Pt is improving slowly and needs more time, still has ongoing symptoms. No SEs from medications, risks discussed. Still irate and a little aloof but denied SI Cymbalta is changed to Arnol due to kidney problems Medication Change: Yes (Lexapro started) Medical Record Reviewed: Yes Mental Status Examination - Cognitive Function Orientation: Person, Place, Situation, Time Memory: Intact Attention: WNL Concentration: Poor Association: WNL Fund of Knowledge: WNL - Mood Mood: Depressed, Anxious - Affect Affect: Constricted - Speech Speech: Appropriate - Formal Thought Process Formal Thought Process: No Impairment - Suicidal Ideation Suicidal Ideation: No - Homicidal Ideation Homicidal Ideation: No Goal/Treatment Plan - Goal/Treatment Plan Need for Continued Stay: Discharge may exacerbated symptoms, Other (medical) Progress Toward Problem(s) and Goals/Treatment Plan: Lexapro for anxiety, depression, and pain Trazodone for sleep Refer for outpatient psych Psych will sign off
--- NOTE | 2018-10-17 17:03 | CP.PCM.PN ---
Subjective - Date & Time of Evaluation Date of Evaluation: 10/17/18 Time of Evaluation: 09:15 - Subjective Subjective: clinically same Objective - Vital Signs/Intake and Output Vital Signs (last 24 hours): Temp Pulse Resp BP Pulse Ox 97.8 F 62 20 166/82 H 100 10/17/18 16:00 10/17/18 16:00 10/17/18 16:00 10/17/18 10:56 10/17/18 16:00 Intake and Output: 10/17/18 10/17/18 06:59 18:59 Intake Total 800 Balance 800 - Medications Medications: Current Medications Amlodipine Besylate (Norvasc) 5 mg PO DAILY [facility] Last Admin: 10/17/18 10:55 Dose: 5 mg Aspirin (Ecotrin) 81 mg PO DAILY [facility] Last Admin: 10/17/18 10:57 Dose: 81 mg Calcium Acetate (Phoslo) 667 mg PO TID [facility] Last Admin: 10/17/18 14:12 Dose: 667 mg Carvedilol (Coreg) 25 mg PO BID [facility] Last Admin: 10/17/18 10:56 Dose: 25 mg Clonidine HCl (Catapres) 0.3 mg PO QID [facility] Last Admin: 10/17/18 14:14 Dose: 0.3 mg Dextrose (Dextrose 50% Inj) 0 ml IV STAT PRN; Protocol PRN Reason: Hypoglycemia Protocol Dextrose (Glutose 15) 0 gm PO ONCE PRN; Protocol PRN Reason: Hypoglycemia Protocol Diphenhydramine HCl (Benadryl) 25 mg PO Q4 PRN PRN Reason: Itching / Pruritus Last Admin: 10/17/18 15:02 Dose: 25 mg Docusate Sodium (Colace) 100 mg PO TID [facility] Last Admin: 10/17/18 14:12 Dose: 100 mg Epoetin James (Procrit) 10,000 unit IV MWF [facility] Last Admin: 10/16/18 10:17 Dose: 10,000 unit Escitalopram Oxalate (Lexapro) 5 mg PO DAILY [facility] Last Admin: 10/17/18 14:11 Dose: 5 mg Gabapentin (Neurontin) 100 mg PO BID [facility] Last Admin: 10/17/18 10:56 Dose: 100 mg Glucagon (Glucagen Diagnostic Kit) 0 mg IM STAT PRN; Protocol PRN Reason: Hypoglycemia Protocol Heparin Sodium (Porcine) (Heparin) 5,000 units SC Q12 [facility] Last Admin: 10/17/18 11:01 Dose: Not Given Hydromorphone HCl (Dilaudid) 1 mg IVP Q4H PRN PRN Reason: Pain, severe (8-10) Last Admin: 10/17/18 15:02 Dose: 1 mg Dextrose (Dextrose 5% In Water 1000 Ml) 1,000 mls @ 0 mls/hr IV .Q0M PRN; Protocol PRN Reason: Hypoglycemia Protocol Insulin Glargine (Lantus) 25 unit SC [facility] Last Admin: 10/16/18 22:38 Dose: 25 unit Insulin Human Regular (Novolin R) 0 unit SC [facility]; Protocol Last Admin: 10/17/18 12:39 Dose: 2 unit Ondansetron HCl (Zofran Tab) 8 mg PO Q8H PRN PRN Reason: Nausea/Vomiting Last Admin: 10/15/18 03:47 Dose: 8 mg Pantoprazole Sodium (Protonix Ec Tab) 40 mg PO DAILY [facility] Last Admin: 10/17/18 10:56 Dose: 40 mg Psyllium Hydrophilic Mucilloid (Hydrocil Instant) 1 pkt PO [facility] Last Admin: 10/16/18 22:45 Dose: Not Given Sucralfate (Carafate Oral Susp) 1 gm PO QID [facility] Last Admin: 10/17/18 14:12 Dose: 1 gm Trazodone HCl (Desyrel) 50 mg PO [facility] Last Admin: 10/16/18 22:37 Dose: 50 mg - Labs Labs: 10/12/18 14:55 10/12/18 14:55
--- NOTE | 2018-10-17 17:27 | CP.PCM.PN ---
Subjective - Date & Time of Evaluation Date of Evaluation: 10/17/18 Time of Evaluation: 15:00 - Subjective Subjective: SEEN ON RENAL F/U FEELA IMPROVED ON HD M W F AND SAT ALL PREVIOUS EMR REVIEWED Objective - Vital Signs/Intake and Output Vital Signs (last 24 hours): Temp Pulse Resp BP Pulse Ox 97.8 F 62 20 166/82 H 100 10/17/18 16:00 10/17/18 16:00 10/17/18 16:00 10/17/18 10:56 10/17/18 16:00 Intake and Output: 10/17/18 10/17/18 06:59 18:59 Intake Total 800 Balance 800 - Medications Medications: Current Medications Amlodipine Besylate (Norvasc) 5 mg PO DAILY [facility] Last Admin: 10/17/18 10:55 Dose: 5 mg Aspirin (Ecotrin) 81 mg PO DAILY [facility] Last Admin: 10/17/18 10:57 Dose: 81 mg Calcium Acetate (Phoslo) 667 mg PO TID [facility] Last Admin: 10/17/18 14:12 Dose: 667 mg Carvedilol (Coreg) 25 mg PO BID [facility] Last Admin: 10/17/18 10:56 Dose: 25 mg Clonidine HCl (Catapres) 0.3 mg PO QID [facility] Last Admin: 10/17/18 14:14 Dose: 0.3 mg Dextrose (Dextrose 50% Inj) 0 ml IV STAT PRN; Protocol PRN Reason: Hypoglycemia Protocol Dextrose (Glutose 15) 0 gm PO ONCE PRN; Protocol PRN Reason: Hypoglycemia Protocol Diphenhydramine HCl (Benadryl) 25 mg PO Q4 PRN PRN Reason: Itching / Pruritus Last Admin: 10/17/18 15:02 Dose: 25 mg Docusate Sodium (Colace) 100 mg PO TID [facility] Last Admin: 10/17/18 14:12 Dose: 100 mg Epoetin James (Procrit) 10,000 unit IV MWF [facility] Last Admin: 10/16/18 10:17 Dose: 10,000 unit Escitalopram Oxalate (Lexapro) 5 mg PO DAILY [facility] Last Admin: 10/17/18 14:11 Dose: 5 mg Gabapentin (Neurontin) 100 mg PO BID [facility] Last Admin: 10/17/18 10:56 Dose: 100 mg Glucagon (Glucagen Diagnostic Kit) 0 mg IM STAT PRN; Protocol PRN Reason: Hypoglycemia Protocol Heparin Sodium (Porcine) (Heparin) 5,000 units SC Q12 [facility] Last Admin: 10/17/18 11:01 Dose: Not Given Hydromorphone HCl (Dilaudid) 1 mg IVP Q4H PRN PRN Reason: Pain, severe (8-10) Last Admin: 10/17/18 15:02 Dose: 1 mg Dextrose (Dextrose 5% In Water 1000 Ml) 1,000 mls @ 0 mls/hr IV .Q0M PRN; Protocol PRN Reason: Hypoglycemia Protocol Insulin Glargine (Lantus) 25 unit SC [facility] Last Admin: 10/16/18 22:38 Dose: 25 unit Insulin Human Regular (Novolin R) 0 unit SC [facility]; Protocol Last Admin: 10/17/18 12:39 Dose: 2 unit Ondansetron HCl (Zofran Tab) 8 mg PO Q8H PRN PRN Reason: Nausea/Vomiting Last Admin: 10/15/18 03:47 Dose: 8 mg Pantoprazole Sodium (Protonix Ec Tab) 40 mg PO DAILY [facility] Last Admin: 10/17/18 10:56 Dose: 40 mg Psyllium Hydrophilic Mucilloid (Hydrocil Instant) 1 pkt PO [facility] Last Admin: 10/16/18 22:45 Dose: Not Given Sucralfate (Carafate Oral Susp) 1 gm PO QID [facility] Last Admin: 10/17/18 14:12 Dose: 1 gm Trazodone HCl (Desyrel) 50 mg PO [facility] Last Admin: 10/16/18 22:37 Dose: 50 mg - Labs Labs: 10/12/18 14:55 10/12/18 14:55 Assessment and Plan - Assessment and Plan (Free Text) Assessment: C/O CURRENT CARE C/O PRESENT MANAGEMENT
[2018-10-17] MEDS: Psyllium Packet PO SCH (22:13)
[2018-10-17] MEDS: (Lantus) Insulin Glargine, Recombinant SC SCH (22:44)
[2018-10-18] MEDS: HYDROmorphone 1 mg/ml ISec IVP PRN ×4 (02:45→17:07)
[2018-10-18] MEDS: (Novolin R) Insulin Human Regular 100 units/ml vial SC SCH ×3 (07:52→17:13)
[2018-10-18] MEDS: Sucralfate 1 gm/10 ml Oral Susp UD PO SCH ×3 (09:42→17:32)
[2018-10-18] MEDS: Pantoprazole 40 mg EC Tab PO SCH (09:43)
[2018-10-18 10:28] VITALS: O2SAT 100
[2018-10-18] MEDS ORDERED: DiphenhydrAMINE 50 mg/ml Inj IVP ONE (12:45)
[2018-10-18] MEDS: Epoetin Alfa 10,000 unit/ml Dialysis IV SCH (13:10)
--- NOTE | 2018-10-18 15:28 | CP.PCM.CON ---
History of Present Illness - History of Present Illness History of Present Illness: SEEN ON RENAL F/U FEELS IMPROVED ALL PREVIOUS EMR REVIEWED Past Patient History - Infectious Disease Hx of Infectious Diseases: None - Tetanus Immunizations Tetanus Immunization: Unknown - Past Medical History & Family History Past Medical History?: Yes - Past Social History Smoking Status: Never Smoked - CARDIAC Hx Cardiac Disorders: Yes Hx Congestive Heart Failure: Yes Hx Hypercholesterolemia: Yes Hx Hypertension: Yes Hx Peripheral Edema: Yes - PULMONARY Hx Respiratory Disorders: Yes Hx Asthma: Yes Hx Bronchitis: Yes Hx Pneumonia: Yes Hx Sleep Apnea: Yes - NEUROLOGICAL Hx Neurological Disorder: Yes Hx Seizures: Yes - HEENT Hx HEENT Problems: Yes Hx Cataracts: Yes (BOTH EYES) Hx Glaucoma: Yes (BOTH EYES) - RENAL Hx Chronic Kidney Disease: Yes Date of Last Dialysis Treatment: 10/11/18 Hx Kidney Stones: Yes - ENDOCRINE/METABOLIC Hx Endocrine Disorders: Yes Hx Hyperthyroidism: Yes Hx Hypothyroidism: Yes - HEMATOLOGICAL/ONCOLOGICAL Hx Blood Disorders: Yes Hx Anemia: Yes - INTEGUMENTARY Hx Dermatological Problems: Yes Other/Comment: DRY ITCHY SKIN ;multiple/generalized dark spots on skin. left to e blister - MUSCULOSKELETAL/RHEUMATOLOGICAL Hx Musculoskeletal Disorders: Yes Hx Falls: No Hx Fractures: Yes (LEFT FOOT) - GASTROINTESTINAL Hx Gastrointestinal Disorders: Yes Hx Gall Bladder Disease: Yes Hx Gastritis: Yes Hx Pancreatitis: Yes - GENITOURINARY/GYNECOLOGICAL Hx Genitourinary Disorders: No - PSYCHIATRIC Hx Psychophysiologic Disorder: Yes Hx Anxiety: Yes Hx Substance Use: No - SURGICAL HISTORY Hx Surgeries: Yes Hx Cholecystectomy: Yes Hx Coronary Stent: Yes - ANESTHESIA Hx Anesthesia: Yes Hx Anesthesia Reactions: No Hx Malignant Hyperthermia: No Meds Allergies/Adverse Reactions: Allergies Allergy/AdvReac Type Severity Reaction Status Date / Time ketorolac tromethamine Allergy RASH Verified 10/12/18 14:41 [From Toradol] latex Allergy RASH Verified 10/12/18 14:41 morphine Allergy RASH Verified 10/12/18 14:41 tramadol Allergy RASH Verified 10/12/18 14:41 hydromorphone AdvReac ITCHING Verified 10/12/18 14:41 - Medications Medications: Current Medications Amlodipine Besylate (Norvasc) 5 mg PO DAILY [facility] Last Admin: 10/18/18 09:01 Dose: Not Given Aspirin (Ecotrin) 81 mg PO DAILY [facility] Last Admin: 10/18/18 09:42 Dose: Not Given Calcium Acetate (Phoslo) 667 mg PO TID [facility] Last Admin: 10/18/18 13:46 Dose: Not Given Carvedilol (Coreg) 25 mg PO BID [facility] Last Admin: 10/18/18 09:00 Dose: Not Given Clonidine HCl (Catapres) 0.3 mg PO QID [facility] Last Admin: 10/18/18 13:45 Dose: Not Given Dextrose (Dextrose 50% Inj) 0 ml IV STAT PRN; Protocol PRN Reason: Hypoglycemia Protocol Dextrose (Glutose 15) 0 gm PO ONCE PRN; Protocol PRN Reason: Hypoglycemia Protocol Diphenhydramine HCl (Benadryl) 25 mg PO Q4 PRN PRN Reason: Itching / Pruritus Last Admin: 10/18/18 08:45 Dose: 25 mg Docusate Sodium (Colace) 100 mg PO TID [facility] Last Admin: 10/18/18 13:45 Dose: Not Given Epoetin James (Procrit) 10,000 unit IV MWF [facility] Last Admin: 10/18/18 13:10 Dose: 10,000 unit Escitalopram Oxalate (Lexapro) 5 mg PO DAILY [facility] Last Admin: 10/18/18 09:43 Dose: Not Given Gabapentin (Neurontin) 100 mg PO BID [facility] Last Admin: 10/18/18 09:43 Dose: Not Given Glucagon (Glucagen Diagnostic Kit) 0 mg IM STAT PRN; Protocol PRN Reason: Hypoglycemia Protocol Hydromorphone HCl (Dilaudid) 1 mg IVP Q4H PRN PRN Reason: Pain, severe (8-10) Last Admin: 10/18/18 13:06 Dose: 1 mg Dextrose (Dextrose 5% In Water 1000 Ml) 1,000 mls @ 0 mls/hr IV .Q0M PRN; Protocol PRN Reason: Hypoglycemia Protocol Insulin Glargine (Lantus) 25 unit SC [facility] Last Admin: 10/17/18 22:44 Dose: 25 unit Insulin Human Regular (Novolin R) 0 unit SC [facility]; Protocol Last Admin: 10/18/18 11:30 Dose: Not Given Ondansetron HCl (Zofran Tab) 8 mg PO Q8H PRN PRN Reason: Nausea/Vomiting Last Admin: 10/15/18 03:47 Dose: 8 mg Pantoprazole Sodium (Protonix Ec Tab) 40 mg PO DAILY [facility] Last Admin: 10/18/18 09:43 Dose: Not Given Psyllium Hydrophilic Mucilloid (Hydrocil Instant) 1 pkt PO [facility] Last Admin: 10/17/18 22:13 Dose: Not Given Sucralfate (Carafate Oral Susp) 1 gm PO QID [facility] Last Admin: 10/18/18 13:45 Dose: Not Given Trazodone HCl (Desyrel) 50 mg PO [facility] Last Admin: 10/17/18 22:43 Dose: 50 mg Results - Vital Signs Recent Vital Signs: Last Vital Signs Temp 97 F L 10/18/18 13:25 Pulse 75 10/18/18 13:25 Resp 16 10/18/18 13:25 BP 92/70 L 10/18/18 13:25 Pulse Ox 100 10/18/18 13:25 - Labs Result Diagrams: 10/12/18 14:55 10/12/18 14:55 Labs: Laboratory Results - last 24 hr 10/17/18 10/17/18 10/18/18 16:29 20:38 02:09 POC Glucose (mg/dL) 281 H 376 H 264 H 10/18/18 10/18/18 06:11 11:23 POC Glucose (mg/dL) 125 H 98 Assessment & Plan - Assessment and Plan (Free Text) Assessment: ESRD ON HD M W F AND SAT ANEMIA OF CKD .. H/H STABLE ELECTROLYTES ABN .. OK MMP P : C/O CURRENT CCARE C/O PRESENT MANAGEMNT
[2018-10-18 16:08] VITALS: PULSE 74; RESP 20; TEMP 98.3
[2018-10-18 17:34] VITALS: BP 198/94
== END 2018-10-18 17:49 | disposition home or self-care (01) | DRG 127 ==
LOC: C.ER 14:29 → C.9E 16:10 → C.3T 16:20 → C.9E 16:23 → C.3T 16:50 → C.5S 10-13 09:26
PROVIDERS: ADMIT Internal Medicine Nephrology; ATTEND Internal Medicine Nephrology
PROC: 5A1D70Z Performance of Urinary Filtration, Intermittent, Less than 6 Hours Per Day (ICD-10-PCS; principal; 2018-10-16)
PROC: GZ56ZZZ Individual Psychotherapy, Supportive (ICD-10-PCS; 2018-10-17)
DX: I13.2 Hypertensive heart and chronic kidney disease with heart failure and with stage 5 chronic kidney disease, or end stage renal disease (principal); E11.43 Type 2 diabetes mellitus with diabetic autonomic (poly)neuropathy; E11.22 Type 2 diabetes mellitus with diabetic chronic kidney disease; I50.9 Heart failure, unspecified; N18.6 End stage renal disease; D63.1 Anemia in chronic kidney disease; E03.9 Hypothyroidism, unspecified; E78.00 Pure hypercholesterolemia, unspecified; F32.1 Major depressive disorder, single episode, moderate; F41.9 Anxiety disorder, unspecified; G47.30 Sleep apnea, unspecified; J45.909 Unspecified asthma, uncomplicated; K31.84 Gastroparesis; Z99.2 Dependence on renal dialysis; Z95.5 Presence of coronary angioplasty implant and graft; Z91.5 Personal history of self-harm

== ENCOUNTER 2018-10-30 19:37 | Inpatient (IN) | payer MEDICAID ==
[2018-10-30 19:38] VITALS: BMI 27.3
[2018-10-30 20:42] LABS: VENOUS BLOOD GAS BASE EXCESS 7.2 mmol/L (0.0-2.0); VENOUS BLOOD GAS PCO2 48 mmHg (40-60); VENOUS BLOOD GAS PO2 35 mm/Hg (30-55); VENOUS BLOOD PH 7.44 (7.32-7.43)
[2018-10-30 20:45] LABS: BASO # 0.1 K/uL (0.0-0.2); BASO % 2.1 % (0.0-2.0); EOS # 0.8 K/uL (0.0-0.7); EOS % 14.9 % (0.0-4.0); HEMOGLOBIN 10.1 g/dL (11.0-16.0); LYMPH # 0.8 K/uL (1.0-4.3); LYMPH % 14.8 % (20.0-40.0); MEAN CORPUSCULAR HEMOGLOBIN 30.6 pg (27.0-31.0); MEAN CORPUSCULAR HGB CONC 31.4 g/dL (33.0-37.0); MEAN PLATELET VOLUME 8.3 fL (7.2-11.7); MONO # 0.3 K/uL (0.0-0.8); MONO % 5.4 % (0.0-10.0); NEUT # 3.4 K/uL (1.8-7.0); NEUT % 62.8 % (50.0-75.0); RBC 3.31 Mil/uL (3.80-5.20); RED CELL DISTRIBUTION WIDTH 16.1 % (11.5-14.5); WHITE BLOOD COUNT 5.4 K/uL (4.8-10.8)
[2018-10-30 20:51] LABS: MEAN CELL VOLUME 97.6 fL (81.0-99.0)
--- NOTE | 2018-10-30 20:52 | C.PDOC ---
History Of Present Illness 32 year old female presents with SOB for approximately 1 week with fatigue and edema of the legs. Patient has Hx of ESRD on M/W/F dialysis, she was dialyzed today but still feels SOB. She also reports chest pain today which lasted s everal minutes but resolved on its own. Denies current chest pain, fever, nausea, vomiting, or diarrhea. Time Seen by Provider: 10/30/18 19:51 Chief Complaint (Nursing): Shortness Of Breath History Per: Patient History/Exam Limitations: no limitations Onset/Duration Of Symptoms: Days (1 week) Current Symptoms Are (Timing): Still Present Current Respiratory Medications: See Home Med List Associated Symptoms: Other (SOB, Fatigue, Leg edema. No chest pain, fever, nausea, vomiting, or diarrhea.) Recent travel outside of the [place]: No Past Medical History Reviewed: Historical Data, Nursing Documentation, Vital Signs Vital Signs: Last Vital Signs Temp 99.1 F 10/30/18 19:41 Pulse 109 H 10/30/18 19:41 Resp 16 10/30/18 19:41 BP 204/90 H 10/30/18 19:41 Pulse Ox 80 L 10/30/18 19:41 - Medical History PMH: Anemia, Anxiety, Asthma, Bronchitis, CHF, Diabetes, Fractures (LEFT FOOT), Gastritis, Gastrointestinal Ulcer (gastroparesis), Gall Bladder Disease, Hepatitis, HTN, Hypercholesterolemia, Hyperthyroidism, Hypothyroidism, Kidney Stones, Pancreatitis, Peripheral Edema, Pneumonia, End Stage Renal Disease, C hronic Kidney Disease, Seizures, Sleep Apnea, Chronic Pain Surgical History: Cholecystectomy, Coronary Stent - [facility] (10/12/18) ASSISTANCE WITH RESPIRATORY VENTILATION, 24-96 HRS, CPAP (11/27/16) CAUTERY TO STOP EPISTAX (03/22/14) CENTRAL VENOUS CATHETER PLACEMENT WITH GUIDANCE (11/06/14) DIALYSIS ARTERIOVENOSTOM (01/10/14) DILATION OF L INNOM VEIN WITH INTRALUM DEV, PERC APPROACH (09/24/18) DILATION OF LEFT SUBCLAVIAN VEIN, PERCUTANEOUS APPROACH (09/03/17) DRAINAGE OF RIGHT FOOT SKIN, EXTERNAL APPROACH (07/17/16) DRAINAGE OF RIGHT LOWER ARM SKIN, EXTERNAL APPROACH (05/25/16) ESOPHAGOGASTRODUODENOSCOPY [EGD] W/CLOSED BIOPSY (03/03/14) EXCISION OF LEFT TOE PHALANX, OPEN APPROACH (07/12/17) EXCISION OF STOMACH, ENDO, DIAGN (05/09/16) EXTIRPATE MATTER FROM R LOW ARM SUBCU/FASCIA, PERC (05/25/16) EXTRACTION OF RIGHT FOOT SKIN, EXTERNAL APPROACH (05/25/16) EXTRACTION OF TOE NAIL, EXTERNAL APPROACH (07/12/17) FLEXIBLE SIGMOIDOSCOPY (10/26/14) FLUOROSCOPY OF DIALYSIS SHUNT/FISTULA USING L OSM CONTRAST (09/24/18) FLUOROSCOPY OF LEFT SUBCLAVIAN VEIN USING OTHER CONTRAST (09/03/17) FLUOROSCOPY OF R JUGULAR VEIN USING L OSM CONTRAST, GUIDANCE (12/13/15) FLUOROSCOPY OF RIGHT SUBCLAVIAN VEIN, GUIDANCE (08/07/16) HEMODIALYSIS (04/05/15) INDIVIDUAL PSYCHOTHERAPY, SUPPORTIVE (10/12/18) INJECT INSULIN (12/23/12) INJECT/INFUSE ELECTROLYT (12/23/12) INJECT/INFUSE NEC (01/17/15) INSERT INFUSION DEV IN R INT JUGULAR VEIN, PERC (02/23/16) INSERT VAD RESERVOIR IN CHEST SUBCU/FASCIA, OPEN (08/19/17) INSERTION OF INFUSION DEV INTO R BASILIC VEIN, PERC APPROACH (04/18/16) INSERTION OF INFUSION DEV INTO R BRACH VEIN, PERC APPROACH (02/19/17) INSERTION OF INFUSION DEV INTO R SUBCLAV VEIN, PERC APPROACH (08/29/16) INSERTION OF INFUSION DEV INTO SUP VENA CAVA, PERC APPROACH (08/19/17) INSERTION OF INFUSION DEVICE INTO R ATRIUM, PERC APPROACH (12/13/15) INSERTION OF VAD INTO CHEST SUBCU/FASCIA, OPEN APPROACH (12/13/15) MEASURE OF CARDIAC SAMPL & PRESSURE, L HEART, PERC APPROACH (10/09/16) OTHER ENDOSCOPY OF SM INTEST (08/25/14) PACKED CELL TRANSFUSION (10/26/14) PERFORMANCE OF URINARY FILTRATION, MULTIPLE (03/19/17) PERFORMANCE OF URINARY FILTRATION, SINGLE (11/27/16) PLAIN RADIOGRAPHY OF LEFT HEART USING OTHER CONTRAST (10/09/16) PLAIN RADIOGRAPHY OF MULT COR ART USING OTH CONTRAST (10/09/16) PLICATION OF VENA CAVA (03/22/14) POST NASAL PAC FOR EPIST (03/22/14) REMOVAL OF VAD FROM TRUNK SUBCU/FASCIA, OPEN APPROACH (02/23/16) RESECTION OF TOE NAIL, EXTERNAL APPROACH (08/19/17) MELVIN KENNY DIALYSIS SHUNT (03/03/14) THERAPEUTIC ERYTHROCYTAPHERESIS (10/26/14) TRANSFUSE NONAUT RED BLOOD CELLS IN PERIPH VEIN, PERC (02/19/17) ULTRASONOGRAPHY OF RIGHT AND LEFT HEART, TRANSESOPHAGEAL (02/19/17) ULTRASONOGRAPHY OF RIGHT SUBCLAVIAN VEIN, GUIDANCE (08/29/16) ULTRASONOGRAPHY OF RIGHT UPPER EXTREMITY VEINS, GUIDANCE (02/19/17) VACCINATION NEC (10/26/14) VENOUS CATHETERIZATION FOR RENAL DIALYSIS (03/03/14) Family History: States: Unknown Family Hx - Social History Hx Tobacco Use: No Hx Alcohol Use: No Hx Substance Use: No - Immunization History Hx Tetanus Toxoid Vaccination: No Hx Influenza Vaccination: Yes Hx Pneumococcal Vaccination: Yes Review Of Systems Except As Marked, All Systems Reviewed And Found Negative. Constitutional: Positive for: Other (Fatigue) Respiratory: Positive for: Shortness of Breath Musculoskeletal: Positive for: Other (Leg edema) Physical Exam - Physical Exam Appears: Non-toxic Skin: Normal Color, Warm Head: Atraumatic, Normacephalic, Other ([place]rr[place]ia face) Eye(s): bilateral: Normal Inspection Oral Mucosa: Moist Neck: Normal, Supple Chest: Symmetrical, No Tenderness Cardiovascular: Rhythm Regular, Other (Mildly tachycardic) Respiratory: Normal Breath Sounds, No Rales, No Rhonchi, No Wheezing Gastrointestinal/Abdominal: Soft, No Tenderness Extremity: Other (+2 pitting edema to lower extremities. AV fistula to left arm with palpable thrill) Pulses: Left Radial: Normal, Right Radial: Normal Neurological/Psych: Oriented x3, Normal Speech ED Course And Treatment - Laboratory Results Result Diagrams: 10/30/18 20:37 10/30/18 20:37 Lab Results: pO2 35 mm/Hg (30-55) 10/30/18 20:38 VBG pH 7.44 (7.32-7.43) H 10/30/18 20:38 VBG pCO2 48 mmHg (40-60) 10/30/18 20:38 VBG HCO3 29.8 mmol/L 10/30/18 20:38 VBG Total CO2 34.1 mmol/L (22-28) H 10/30/18 20:38 VBG O2 Sat (Calc) 65.7 % (40-65) H 10/30/18 20:38 VBG Base Excess 7.2 mmol/L (0.0-2.0) H 10/30/18 20:38 VBG Potassium 4.5 mmol/L (3.6-5.2) 10/30/18 20:38 Sodium 139.0 mmol/l (132-148) 10/30/18 20:38 Chloride 105.0 mmol/L (98-107) 10/30/18 20:38 Glucose 451 mg/dl (65-105) H* 10/30/18 20:38 Lactate 0.9 mmol/L (0.7-2.1) 10/30/18 20:38 Crit Value Called To Nenita goncalves 10/30/18 20:38 Crit Value Called By Tonie 10/30/18 20:38 Crit Value Read Back Y 10/30/18 20:38 Blood Gas Notified Time 204010/30/18 20:38 ECG: Interpreted By Me, Viewed By Me ECG Rhythm: Sinus Tachycardia ECG Interpretation: Normal Interpretation Of ECG: Right axis deviation, no acute ST/T wave changes Rate From EC O2 Sat by Pulse Oximetry: 80 (Room air) Pulse Ox Interpretation: Abnormal Progress Note: Blood work, CXR, and CTA ordered to rule out PE Disposition - Disposition Forms: [facility] (Lao) - Scribe Statement The provider has reviewed the documentation as recorded by the Scribe Benjamín Gutiérrez All medical record entries made by the Scribe were at my direction and personally dictated by me. I have reviewed the chart and agree that the record accurately reflects my personal performance of the history, physical exam, medical decision making, and the department course for this patient. I have also personally directed, reviewed, and agree with the discharge instructions and disposition.
[2018-10-30] MEDS ORDERED: (Novolin R) Insulin Human Regular 100 units/ml vial IVP ONE (20:58)
[2018-10-30 21:00] LABS: INR 1.1; PROTHROMBIN TIME 12.4 SECONDS (9.7-12.2)
[2018-10-30 21:05] LABS: ALB/GLOB RATIO 1.4 (1.0-2.1); ALBUMIN 3.8 g/dL (3.5-5.0); ALT/SGPT 15 U/L (9-52); AST/SGOT 23 U/L (14-36); BLOOD UREA NITROGEN 25 mg/dL (7-17); CALCIUM 8.7 mg/dl (8.6-10.4); GFR NON-AFRICAN AMERICAN 12
[2018-10-30] MEDS ORDERED: (Novolin R) Insulin Human Regular 100 units/ml vial ONE (21:07)
[2018-10-30 21:14] LABS: B-TYPE NATRIURETIC PEPTIDE 12600 pg/mL (0-450); CK-MB 0.43 ng/mL (0.0-3.38)
[2018-10-30] MEDS ORDERED: DiphenhydrAMINE 50 mg/ml Inj IVP STA (21:38)
[2018-10-30] MEDS ORDERED: DiphenhydrAMINE 50 mg/ml Inj ONE (21:44)
[2018-10-30] MEDS ORDERED: Glucagon Recombinant 1 mg Inj IM PRN (23:56)
[2018-10-30] MEDS ORDERED: Dextrose 50% SYRINGE Inj (50 ml) IV PRN (23:56)
[2018-10-31] MEDS: HYDROmorphone 1 mg/ml ISec IM SCH ×3 (01:00→05:19)
--- NOTE | 2018-10-31 05:01 | CP.PCM.CON ---
History of Present Illness - History of Present Illness History of Present Illness: REASON FOR CONSULT : ESRD ON HD A SAT PT IS WELL KNOWN TO ME WITH MMP AND FREQUENT ADDMISSIONS 32 year old female presents with SOB for approximately 1 week with fatigue and edema of the legs. Patient has Hx of ESRD on // dialysis, she was dialyzed today but still feels SOB. She also reports chest pain today which lasted several minutes but resolved on its own. Denies current chest pain, fever, nausea, vomiting, or diarrhea. Time Seen by Provider: 10/30/18 19:51 Chief Complaint (Nursing): Shortness Of Breath History Per: Patient History/Exam Limitations: no limitations Onset/Duration Of Symptoms: Days (1 week) Current Symptoms Are (Timing): Still Present Current Respiratory Medications: See Home Med List Associated Symptoms: Other (SOB, Fatigue, Leg edema. No chest pain, fever, nausea, vomiting, or diarrhea.) Recent travel outside of the [place]: No Past Patient History - Infectious Disease Hx of Infectious Diseases: None - Tetanus Immunizations Tetanus Immunization: Unknown - Past Medical History & Family History Past Medical History?: Yes - Past Social History Smoking Status: Never Smoked - CARDIAC Hx Congestive Heart Failure: Yes Hx Hypercholesterolemia: Yes Hx Hypertension: Yes Hx Peripheral Edema: Yes - PULMONARY Hx Asthma: Yes Hx Bronchitis: Yes Hx Pneumonia: Yes Hx Sleep Apnea: Yes - NEUROLOGICAL Hx Seizures: Yes - HEENT Hx HEENT Problems: Yes Hx Cataracts: Yes (BOTH EYES) Hx Glaucoma: Yes (BOTH EYES) - RENAL Hx Chronic Kidney Disease: Yes Hx Kidney Stones: Yes - ENDOCRINE/METABOLIC Hx Hyperthyroidism: Yes Hx Hypothyroidism: Yes - HEMATOLOGICAL/ONCOLOGICAL Hx Anemia: Yes - INTEGUMENTARY Hx Dermatological Problems: Yes Other/Comment: DRY ITCHY SKIN ;multiple/generalized dark spots on skin. left toe blister - MUSCULOSKELETAL/RHEUMATOLOGICAL Hx Falls: No Hx Fractures: Yes (LEFT FOOT) - GASTROINTESTINAL Hx Gall Bladder Disease: Yes Hx Gastritis: Yes Hx Pancreatitis: Yes - PSYCHIATRIC Hx Anxiety: Yes Hx Substance Use: No - SURGICAL HISTORY Hx Cholecystectomy: Yes Hx Coronary Stent: Yes - ANESTHESIA Hx Anesthesia: Yes Hx Anesthesia Reactions: No Hx Malignant Hyperthermia: No Meds Allergies/Adverse Reactions: Allergies Allergy/AdvReac Type Severity Reaction Status Date / Time ketorolac tromethamine Allergy RASH Verified 10/12/18 14:41 [From Toradol] latex Allergy RASH Verified 10/12/18 14:41 morphine Allergy RASH Verified 10/12/18 14:41 tramadol Allergy RASH Verified 10/12/18 14:41 hydromorphone AdvReac ITCHING Verified 10/12/18 14:41 - Medications Medications: Current Medications Amlodipine Besylate (Norvasc) [address] [facility] Aspirin (Ecotrin) [address] [facility] Calcium Acetate (Phoslo) [address] [facility] Carvedilol (Coreg) 3.[address] [facility] Clonidine HCl (Catapres) 0.[address] [facility] Dextrose (Dextrose 50% Inj) 0 ml IV STAT PRN; Protocol PRN Reason: Hypoglycemia Protocol Dextrose (Glutose 15) 0 gm PO ONCE PRN; Protocol PRN Reason: Hypoglycemia Protocol Diphenhydramine HCl (Benadryl) [address] [facility] Last Admin: 10/31/18 01:00 Dose: 25 mg Docusate Sodium (Colace) [address] [facility] Gabapentin (Neurontin) [address] [facility] Glucagon (Glucagen Diagnostic Kit) 0 mg IM STAT PRN; Protocol PRN Reason: Hypoglycemia Protocol Hydromorphone HCl (Dilaudid) [address] [facility] Last Admin: 10/31/18 01:00 Dose: 1 mg Dextrose (Dextrose 5% In Water 1000 Ml) 1,000 mls @ 0 mls/hr IV .Q0M PRN; Protocol PRN Reason: Hypoglycemia Protocol Insulin Glargine (Lantus) [address] [facility] Insulin Human Regular (Novolin R) [address] [facility]; Protocol Ondansetron HCl (Zofran Tab) [address] [facility] Pantoprazole Sodium (Protonix Ec Tab) [address] [facility] Pneumococcal Polyvalent Vaccine (Pneumovax 23 Vaccine) 0.5 ml IM .ONCE ONE Stop: 11/04/18 10:01 Sucralfate (Carafate Oral Susp) [address] [facility] Results - Vital Signs Recent Vital Signs: Last Vital Signs Temp 98.7 F 10/30/18 23:17 Pulse 89 10/31/18 01:32 Resp 20 10/30/18 23:17 BP 178/98 H 10/30/18 23:17 Pulse Ox 84 L 10/30/18 23:17 - Labs Result Diagrams: 10/30/18 20:37 10/30/18 20:37 Labs: Laboratory Results - last 24 hr 10/30/18 10/30/18 10/30/18 20:37 20:37 20:37 WBC 5.4 RBC 3.31 L Hgb 10.1 L Hct 32.3 L MCV 97.6 D MCH 30.6 MCHC 31.4 L RDW 16.1 H Plt Count 272 D MPV 8.3 Neut % (Auto) 62.8 Lymph % (Auto) 14.8 L Wallace % (Auto) 5.4 Eos % (Auto) 14.9 H Baso % (Auto) 2.1 H Neut # (Auto) 3.4 Lymph # (Auto) 0.8 L Wallace # (Auto) 0.3 Eos # (Auto) 0.8 H Baso # (Auto) 0.1 PT 12.4 H INR 1.1 APTT 81 H pO2 VBG pH VBG pCO2 VBG HCO3 VBG Total CO2 VBG O2 Sat (Calc) VBG Base Excess VBG Potassium Glucose Lactate Crit Value Called To Crit Value Called By Crit Value Read Back Blood Gas Notified Time Sodium 136 Potassium 4.7 Chloride 98 Carbon Dioxide 31 H Anion Gap 12 BUN 25 H Creatinine 4.2 H Est GFR ( Amer) 15 Est GFR (Non-Af Amer) 12 POC Glucose (mg/dL) Random Glucose 458 H* D Calcium 8.7 Total Bilirubin 0.5 AST 23 ALT 15 Alkaline Phosphatase 146 H D Total Creatine Kinase 92 CK-MB (Mass) 0.43 Troponin I < 0.0120 NT-Pro-B Natriuret Pep 64687 H Total Protein 6.6 Albumin 3.8 Globulin 2.8 Albumin/Globulin Ratio 1.4 Beta HCG, Quant < 2.39 Venous Blood Potassium 10/30/18 10/30/18 20:38 21:49 WBC RBC Hgb Hct MCV MCH MCHC RDW Plt Count MPV Neut % (Auto) Lymph % (Auto) Wallace % (Auto) Eos % (Auto) Baso % (Auto) Neut # (Auto) Lymph # (Auto) Wallace # (Auto) Eos # (Auto) Baso # (Auto) PT INR APTT pO2 35 VBG pH 7.44 H VBG pCO2 48 VBG HCO3 29.8 VBG Total CO2 34.1 H VBG O2 Sat (Calc) 65.7 H VBG Base Excess 7.2 H VBG Potassium 4.5 Glucose 451 H* Lactate 0.9 Crit Value Called To Nenita goncalves Crit Value Called By Tonie Crit Value Read Back Y Blood Gas Notified Time 2040 Sodium 139.0 Potassium Chloride 105.0 Carbon Dioxide Anion Gap BUN Creatinine Est GFR ( Amer) Est GFR (Non-Af Amer) POC Glucose (mg/dL) 298 H Random Glucose Calcium Total Bilirubin AST ALT Alkaline Phosphatase Total Creatine Kinase CK-MB (Mass) Troponin I NT-Pro-B Natriuret Pep Total Protein Albumin Globulin Albumin/Globulin Ratio Beta HCG, Quant Venous Blood Potassium 4.5 Assessment & Plan - Assessment and Plan (Free Text) Assessment: ESRD ON HD M W F AND SAT .. TO BE C/O AN IN PT ANRMIA OF CKD .. H/H STABLE ELECTROLYTES ABNORMALITIES ..OK MMP P : C/O HD C/O RENAL AND DIABETIC DIET 2 G NA 2 G K 1800 ENRIQUETA ADA AND 100 G PROTIEN FLIUD RESTRICTION 1000CC/D ..DIATRY CONSULT ANS COUNSELLING C/O CURRENT MEDS WILL F/U CLOSELY - Date & Time Date: 10/30/18 Time: 19:00
[2018-10-31] MEDS ORDERED: (Novolog) Insulin Aspart, Recombinant 100 u/ml 10 ml vial SC SCH (07:30)
[2018-10-31] MEDS: Pantoprazole 40 mg EC Tab PO SCH (09:30)
[2018-10-31] MEDS: Sucralfate 1 gm/10 ml Oral Susp UD PO SCH ×4 (09:30→21:52)
[2018-10-31] MEDS: (Novolin R) Insulin Human Regular 100 units/ml vial SC SCH ×4 (09:31→21:55)
[2018-10-31] MEDS: HYDROmorphone 1 mg/ml ISec IM PRN ×4 (09:32→21:52)
--- NOTE | 2018-10-31 10:21 | RAD ---
Date of service: 10/30/2018 PROCEDURE: CHEST RADIOGRAPH, 1 VIEW HISTORY: SOB COMPARISON: 10/12/2018. FINDINGS: Right-sided MediPort terminates at the cavoatrial junction. LUNGS: There is interval development of diffuse alveolar pulmonary edema. There is linear atelectasis in the left mid lung. PLEURA: No pneumothorax or pleural effusion. CARDIOVASCULAR: Persistent severe cardiomegaly. No aortic atherosclerotic calcifications present. OSSEOUS STRUCTURES: Within normal limits for the patient's age. VISUALIZED UPPER ABDOMEN: Normal. OTHER FINDINGS: There is stable appearance of left brachiocephalic endovascular stent graft. IMPRESSION: Interval development of diffuse pulmonary edema.
--- NOTE | 2018-10-31 12:59 | NM ---
Date of service: 10/31/2018 COMPARISON: October 30, 2018. Single-view chest TECHNIQUE: 9.1 mCi technetium 99-m [id number] Gas. 3.6 mCI technetium 99-m MAA administered intravenously. FINDINGS: VENTILATION COMPONENT: Normal. PERFUSION COMPONENT: Heterogeneous distribution of radionuclide. No geographic, segmental, lobar abnormalities apparent on the present examination. IMPRESSION: Low probability ventilation perfusion scan for pulmonary embolism.
[2018-10-31] MEDS: Azithromycin 500 MG in Sodium Chloride 0.9% 250 ML IVPB SCH (13:59)
[2018-10-31] MEDS ORDERED: DiphenhydrAMINE 50 mg/ml Inj IVP PRN (14:14)
--- NOTE | 2018-10-31 14:17 | CARD ---
APPROVED REPORT Date of service: 10/30/2018 EKG Measurement Heart [id number] [id number] <Conclusion> Sinus tachycardia Right axis deviation Suspect limb lead reversal. Pls repeat. Abnormal ECG
[2018-10-31] MEDS: MethylPREDNISolone 40 mg Vial IVP SCH ×2 (14:59→21:56)
[2018-10-31 15:13] LABS: BASO # 0.1 K/uL (0.0-0.2); BASO % 2.4 % (0.0-2.0); EOS # 1.1 K/uL (0.0-0.7); HEMOGLOBIN 9.5 g/dL (11.0-16.0); LYMPH # 1.1 K/uL (1.0-4.3); LYMPH % 18.6 % (20.0-40.0); MEAN CORPUSCULAR HGB CONC 31.6 g/dL (33.0-37.0); MONO # 0.3 K/uL (0.0-0.8); NEUT # 3.3 K/uL (1.8-7.0); NRBC % 0.1 % (0.0-2.0); RBC 3.07 Mil/uL (3.80-5.20); RED CELL DISTRIBUTION WIDTH 15.9 % (11.5-14.5); WHITE BLOOD COUNT 5.9 K/uL (4.8-10.8)
[2018-10-31 16:01] LABS: ALB/GLOB RATIO 1.4 (1.0-2.1); ALT/SGPT 20 U/L (9-52); AST/SGOT 37 U/L (14-36); BLOOD UREA NITROGEN 37 mg/dL (7-17); CALCIUM 8.5 mg/dl (8.6-10.4); GFR NON-AFRICAN AMERICAN 9
--- NOTE | 2018-10-31 17:55 | CP.PCM.CON ---
History of Present Illness - History of Present Illness History of Present Illness: Patient is a 32 year old female with a history of anemia, anxiety, asthma, bronchitis, CHF, diabetes, hyperthyroidism, hypothyroidism, kidney stones, pancreatitis, ESRD on hemodialysis, CKD, seizures, sleep apnea, chronic pain, who presented to the ED yesterday (10/30) with complaints of SOB. She also reports an episode of chest pain that lasted several minutes and resolved spontaneously earlier in the day. She reports of swelling in her legs. PMH: Anemia, anxiety, asthma, bronchitis, CHF, diabetes, hyperthyroidism, hypothyroidism, kidney stones, pancreatitis, ESRD on hemodialysis, CKD, seizures, sleep apnea, chronic pain Surg: Cholecystectomy, coronary stent Social: Denies alcohol, tobacco, illicit drugs FMH: Unknown Patient seen and examined at bedside. She is comfortable and feels well though somewhat fatigued. She denies cough. Afebrile. Physical Exam: General: Awake, alert, oriented; comfortable; not in any distress Cardio: Regular rhythm and rate; +S1 +S2 Pulm: CTA b/l Abd: Soft, non-distended CXR 10/30: Interval development of diffuse pulmonary edema. Assessment & Plan: Pulmonary Edema - Follow-up results of VQ scan - Test for Mycoplasma and Legionelle - Start steroids - Start azithromycin - Consider additional dialysis session Past Patient History - Infectious Disease Hx of Infectious Diseases: None - Tetanus Immunizations Tetanus Immunization: Unknown - Past Medical History & Family History Past Medical History?: Yes - Past Social History Smoking Status: Never Smoked - CARDIAC Hx Congestive Heart Failure: Yes Hx Hypercholesterolemia: Yes Hx Hypertension: Yes Hx Peripheral Edema: Yes - PULMONARY Hx Asthma: Yes Hx Bronchitis: Yes Hx Pneumonia: Yes Hx Sleep Apnea: Yes - NEUROLOGICAL Hx Seizures: Yes - HEENT Hx HEENT Problems: Yes Hx Cataracts: Yes (BOTH EYES) Hx Glaucoma: Yes (BOTH EYES) - RENAL Hx Chronic Kidney Disease: Yes Hx Kidney Stones: Yes - ENDOCRINE/METABOLIC Hx Hyperthyroidism: Yes Hx Hypothyroidism: Yes - HEMATOLOGICAL/ONCOLOGICAL Hx Anemia: Yes - INTEGUMENTARY Hx Dermatological Problems: Yes Other/Comment: DRY ITCHY SKIN ;multiple/generalized dark spots on skin. left toe blister - MUSCULOSKELETAL/RHEUMATOLOGICAL Hx Falls: No Hx Fractures: Yes (LEFT FOOT) - GASTROINTESTINAL Hx Gall Bladder Disease: Yes Hx Gastritis: Yes Hx Pancreatitis: Yes - PSYCHIATRIC Hx Anxiety: Yes Hx Substance Use: No - SURGICAL HISTORY Hx Cholecystectomy: Yes Hx Coronary Stent: Yes - ANESTHESIA Hx Anesthesia: Yes Hx Anesthesia Reactions: No Hx Malignant Hyperthermia: No Meds Allergies/Adverse Reactions: Allergies Allergy/AdvReac Type Severity Reaction Status Date / Time ketorolac tromethamine Allergy RASH Verified 10/12/18 14:41 [From Toradol] latex Allergy RASH Verified 10/12/18 14:41 morphine Allergy RASH Verified 10/12/18 14:41 tramadol Allergy RASH Verified 10/12/18 14:41 hydromorphone AdvReac ITCHING Verified 10/12/18 14:41 - Medications Medications: Current Medications Amlodipine Besylate (Norvasc) 5 mg PO Q24H [facility] Last Admin: 10/31/18 07:38 Dose: 5 mg Aspirin (Ecotrin) 81 mg PO DAILY [facility] Last Admin: 10/31/18 09:30 Dose: 81 mg Calcium Acetate (Phoslo) 667 mg PO TID [facility] Last Admin: 10/31/18 14:59 Dose: Not Given Carvedilol (Coreg) 3.125 mg PO Q12H [facility] Last Admin: 10/31/18 07:38 Dose: 3.125 mg Clonidine HCl (Catapres) 0.3 mg PO Q12H [facility] Last Admin: 10/31/18 07:38 Dose: 0.3 mg Dextrose (Dextrose 50% Inj) 0 ml IV STAT PRN; Protocol PRN Reason: Hypoglycemia Protocol Dextrose (Glutose 15) 0 gm PO ONCE PRN; Protocol PRN Reason: Hypoglycemia Protocol Diphenhydramine HCl (Benadryl) 25 mg PO Q3 PRN PRN Reason: Itching / Pruritus Diphenhydramine HCl (Benadryl) 50 mg IVP ONCE PRN PRN Reason: itchiness Last Admin: 10/31/18 14:56 Dose: 50 mg Docusate Sodium (Colace) 100 mg PO TID [facility] Last Admin: 10/31/18 14:58 Dose: Not Given Gabapentin (Neurontin) 100 mg PO BID [facility] Last Admin: 10/31/18 09:30 Dose: 100 mg Glucagon (Glucagen Diagnostic Kit) 0 mg IM STAT PRN; Protocol PRN Reason: Hypoglycemia Protocol Heparin Sodium (Porcine) (Heparin) 5,000 units SC Q12 [facility] Last Admin: 10/31/18 09:30 Dose: Not Given Hydromorphone HCl (Dilaudid) 1 mg IM Q3 PRN PRN Reason: Pain, severe (8-10) Last Admin: 10/31/18 14:41 Dose: 1 mg Dextrose (Dextrose 5% In Water 1000 Ml) 1,000 mls @ 0 mls/hr IV .Q0M PRN; Protocol PRN Reason: Hypoglycemia Protocol Azithromycin 500 mg/ Sodium (Chloride) 250 mls @ 250 mls/hr IVPB DAILY KAREN; Protocol Last Admin: 10/31/18 13:59 Dose: Not Given Insulin Glargine (Lantus) 25 unit SC HS KAREN Insulin Human Regular (Novolin R) 0 unit SC ACHS KAREN; Protocol Last Admin: 10/31/18 12:26 Dose: 4 units Methylprednisolone (Solu-Medrol) 40 mg IVP Q8 [facility] Last Admin: 10/31/18 14:59 Dose: Not Given Ondansetron HCl (Zofran Tab) 8 mg PO Q8 [facility] Pantoprazole Sodium (Protonix Ec Tab) 40 mg PO DAILY [facility] Last Admin: 10/31/18 09:30 Dose: 40 mg Pneumococcal Polyvalent Vaccine (Pneumovax 23 Vaccine) 0.5 ml IM .ONCE ONE Stop: 11/04/18 10:01 Sucralfate (Carafate Oral Susp) 1 gm PO QID [facility] Last Admin: 10/31/18 14:58 Dose: Not Given Results - Vital Signs Recent Vital Signs: Last Vital Signs Temp 98.1 F 10/31/18 13:50 Pulse 74 10/31/18 16:01 Resp 16 10/31/18 16:01 BP 175/97 H 10/31/18 16:01 Pulse Ox 98 10/31/18 09:10 - Labs Result Diagrams: 10/31/18 15:04 10/31/18 15:04 Labs: Laboratory Results - last 24 hr 10/30/18 10/30/18 10/30/18 20:37 20:37 20:37 WBC 5.4 RBC 3.31 L Hgb 10.1 L Hct 32.3 L MCV 97.6 D MCH 30.6 MCHC 31.4 L RDW 16.1 H Plt Count 272 D MPV 8.3 Neut % (Auto) 62.8 Lymph % (Auto) 14.8 L [place] % (Auto) 5.4 Eos % (Auto) 14.9 H Baso % (Auto) 2.1 H Neut # (Auto) 3.4 Lymph # (Auto) 0.8 L [place] # (Auto) 0.3 Eos # (Auto) 0.8 H Baso # (Auto) 0.1 PT 12.4 H INR 1.1 APTT 81 H pO2 VBG pH VBG pCO2 VBG HCO3 VBG Total CO2 VBG O2 Sat (Calc) VBG Base Excess VBG Potassium Glucose Lactate Crit Value Called To Crit Value Called By Crit Value Read Back Blood Gas Notified Time Sodium 136 Potassium 4.7 Chloride 98 Carbon Dioxide 31 H Anion Gap 12 BUN 25 H Creatinine 4.2 H Est GFR ( Amer) 15 Est GFR (Non-Af Amer) 12 POC Glucose (mg/dL) Random Glucose 458 H* D Calcium 8.7 Total Bilirubin 0.5 AST 23 ALT 15 Alkaline Phosphatase 146 H D Total Creatine Kinase 92 CK-MB (Mass) 0.43 Troponin I < 0.0120 NT-Pro-B Natriuret Pep 83964 H Total Protein 6.6 Albumin 3.8 Globulin 2.8 Albumin/Globulin Ratio 1.4 Beta HCG, Quant < 2.39 Venous Blood Potassium Mycoplasma pneumon IgM 10/30/18 10/30/18 10/31/18 20:38 21:49 06:07 WBC RBC Hgb Hct MCV MCH MCHC RDW Plt Count MPV Neut % (Auto) Lymph % (Auto) [place] % (Auto) Eos % (Auto) Baso % (Auto) Neut # (Auto) Lymph # (Auto) [place] # (Auto) Eos # (Auto) Baso # (Auto) PT INR APTT pO2 35 VBG pH 7.44 H VBG pCO2 48 VBG HCO3 29.8 VBG Total CO2 34.1 H VBG O2 Sat (Calc) 65.7 H VBG Base Excess 7.2 H VBG Potassium 4.5 Glucose 451 H* Lactate 0.9 Crit Value Called To Nenita goncalves Crit Value Called By Tonie Crit Value Read Back Y Blood Gas Notified Time 2040 Sodium 139.0 Potassium Chloride 105.0 Carbon Dioxide Anion Gap BUN Creatinine Est GFR ( Amer) Est GFR (Non-Af Amer) POC Glucose (mg/dL) 298 H 324 H Random Glucose Calcium Total Bilirubin AST ALT Alkaline Phosphatase Total Creatine Kinase CK-MB (Mass) Troponin I NT-Pro-B Natriuret Pep Total Protein Albumin Globulin Albumin/Globulin Ratio Beta HCG, Quant Venous Blood Potassium 4.5 Mycoplasma pneumon IgM 10/31/18 10/31/18 10/31/18 10:58 15:04 15:04 WBC 5.9 RBC 3.07 L Hgb 9.5 L Hct 30.1 L MCV 98.0 MCH 31.0 MCHC 31.6 L RDW 15.9 H Plt Count 251 MPV 9.0 Neut % (Auto) 56.0 Lymph % (Auto) 18.6 L [place] % (Auto) 5.0 Eos % (Auto) 18.0 H Baso % (Auto) 2.4 H Neut # (Auto) 3.3 Lymph # (Auto) 1.1 [place] # (Auto) 0.3 Eos # (Auto) 1.1 H Baso # (Auto) 0.1 PT INR APTT pO2 VBG pH VBG pCO2 VBG HCO3 VBG Total CO2 VBG O2 Sat (Calc) VBG Base Excess VBG Potassium Glucose Lactate Crit Value Called To Crit Value Called By Crit Value Read Back Blood Gas Notified Time Sodium 135 Potassium 5.3 H Chloride 94 L Carbon Dioxide 26 Anion Gap 20 BUN 37 H Creatinine 5.7 H Est GFR ( Amer) 11 Est GFR (Non-Af Amer) 9 POC Glucose (mg/dL) 343 H Random Glucose 302 H D Calcium 8.5 L Total Bilirubin 0.6 AST 37 H D ALT 20 Alkaline Phosphatase 123 Total Creatine Kinase CK-MB (Mass) Troponin I < 0.0120 NT-Pro-B Natriuret Pep Total Protein 6.7 Albumin 4.0 Globulin 2.8 Albumin/Globulin Ratio 1.4 Beta HCG, Quant Venous Blood Potassium Mycoplasma pneumon IgM 10/31/18 10/31/18 15:04 16:08 WBC RBC Hgb Hct MCV MCH MCHC RDW Plt Count MPV Neut % (Auto) Lymph % (Auto) [place] % (Auto) Eos % (Auto) Baso % (Auto) Neut # (Auto) Lymph # (Auto) [place] # (Auto) Eos # (Auto) Baso # (Auto) PT INR APTT pO2 VBG pH VBG pCO2 VBG HCO3 VBG Total CO2 VBG O2 Sat (Calc) VBG Base Excess VBG Potassium Glucose Lactate Crit Value Called To Crit Value Called By Crit Value Read Back Blood Gas Notified Time Sodium Potassium Chloride Carbon Dioxide Anion Gap BUN Creatinine Est GFR ( Amer) Est GFR (Non-Af Amer) POC Glucose (mg/dL) 107 Random Glucose Calcium Total Bilirubin AST ALT Alkaline Phosphatase Total Creatine Kinase CK-MB (Mass) Troponin I NT-Pro-B Natriuret Pep Total Protein Albumin Globulin Albumin/Globulin Ratio Beta HCG, Quant Venous Blood Potassium Mycoplasma pneumon IgM Negative
--- NOTE | 2018-10-31 19:02 | CP.PCM.HP ---
Past Patient History - Infectious Disease Hx of Infectious Diseases: None - Tetanus Immunizations Tetanus Immunization: Unknown - Past Medical History & Family History Past Medical History?: Yes - Past Social History Smoking Status: Never Smoked - CARDIAC Hx Congestive Heart Failure: Yes Hx Hypercholesterolemia: Yes Hx Hypertension: Yes Hx Peripheral Edema: Yes - PULMONARY Hx Asthma: Yes Hx Bronchitis: Yes Hx Pneumonia: Yes Hx Sleep Apnea: Yes - NEUROLOGICAL Hx Seizures: Yes - HEENT Hx HEENT Problems: Yes Hx Cataracts: Yes (BOTH EYES) Hx Glaucoma: Yes (BOTH EYES) - RENAL Hx Chronic Kidney Disease: Yes Hx Kidney Stones: Yes - ENDOCRINE/METABOLIC Hx Hyperthyroidism: Yes Hx Hypothyroidism: Yes - HEMATOLOGICAL/ONCOLOGICAL Hx Anemia: Yes - INTEGUMENTARY Hx Dermatological Problems: Yes Other/Comment: DRY ITCHY SKIN ;multiple/generalized dark spots on skin. left toe blister - MUSCULOSKELETAL/RHEUMATOLOGICAL Hx Falls: No Hx Fractures: Yes (LEFT FOOT) - GASTROINTESTINAL Hx Gall Bladder Disease: Yes Hx Gastritis: Yes Hx Pancreatitis: Yes - PSYCHIATRIC Hx Anxiety: Yes Hx Substance Use: No - SURGICAL HISTORY Hx Cholecystectomy: Yes Hx Coronary Stent: Yes - ANESTHESIA Hx Anesthesia: Yes Hx Anesthesia Reactions: No Hx Malignant Hyperthermia: No Meds Allergies/Adverse Reactions: Allergies Allergy/AdvReac Type Severity Reaction Status Date / Time ketorolac tromethamine Allergy RASH Verified 10/12/18 14:41 [From Toradol] latex Allergy RASH Verified 10/12/18 14:41 morphine Allergy RASH Verified 10/12/18 14:41 tramadol Allergy RASH Verified 10/12/18 14:41 hydromorphone AdvReac ITCHING Verified 10/12/18 14:41 Physical Exam - Constitutional Appears: Well - Head Exam Head Exam: ATRAUMATIC, NORMAL INSPECTION, NORMOCEPHALIC - Eye Exam Eye Exam: EOMI, Normal appearance, PERRL Pupil Exam: NORMAL ACCOMODATION, PERRL - ENT Exam ENT Exam: Mucous Membranes Moist, Normal Exam - Neck Exam Neck exam: Positive for: Normal Inspection - Respiratory Exam Respiratory Exam: Decreased Breath Sounds - Cardiovascular Exam Cardiovascular Exam: REGULAR RHYTHM, +S1, +S2 - GI/Abdominal Exam GI & Abdominal Exam: Diminished Bowel Sounds, Soft - Rectal Exam Rectal Exam: Deferred Results - Vital Signs Recent Vital Signs: Last Vital Signs Temp 98.1 F 10/31/18 13:50 Pulse 74 10/31/18 16:01 Resp 16 10/31/18 16:01 BP 175/97 H 10/31/18 16:01 Pulse Ox 98 10/31/18 09:10 - Labs Result Diagrams: 10/31/18 15:04 10/31/18 15:04 Labs: Laboratory Results - last 24 hr 10/30/18 10/30/18 10/30/18 20:37 20:37 20:37 WBC 5.4 RBC 3.31 L Hgb 10.1 L Hct 32.3 L MCV 97.6 D MCH 30.6 MCHC 31.4 L RDW 16.1 H Plt Count 272 D MPV 8.3 Neut % (Auto) 62.8 Lymph % (Auto) 14.8 L [place] % (Auto) 5.4 Eos % (Auto) 14.9 H Baso % (Auto) 2.1 H Neut # (Auto) 3.4 Lymph # (Auto) 0.8 L [place] # (Auto) 0.3 Eos # (Auto) 0.8 H Baso # (Auto) 0.1 PT 12.4 H INR 1.1 APTT 81 H pO2 VBG pH VBG pCO2 VBG HCO3 VBG Total CO2 VBG O2 Sat (Calc) VBG Base Excess VBG Potassium Glucose Lactate Crit Value Called To Crit Value Called By Crit Value Read Back Blood Gas Notified Time Sodium 136 Potassium 4.7 Chloride 98 Carbon Dioxide 31 H Anion Gap 12 BUN 25 H Creatinine 4.2 H Est GFR ( Amer) 15 Est GFR (Non-Af Amer) 12 POC Glucose (mg/dL) Random Glucose 458 H* D Calcium 8.7 Total Bilirubin 0.5 AST 23 ALT 15 Alkaline Phosphatase 146 H D Total Creatine Kinase 92 CK-MB (Mass) 0.43 Troponin I < 0.0120 NT-Pro-B Natriuret Pep 44024 H Total Protein 6.6 Albumin 3.8 Globulin 2.8 Albumin/Globulin Ratio 1.4 Beta HCG, Quant < 2.39 Venous Blood Potassium Mycoplasma pneumon IgM 10/30/18 10/30/18 10/31/18 20:38 21:49 06:07 WBC RBC Hgb Hct MCV MCH MCHC RDW Plt Count MPV Neut % (Auto) Lymph % (Auto) [place] % (Auto) Eos % (Auto) Baso % (Auto) Neut # (Auto) Lymph # (Auto) [place] # (Auto) Eos # (Auto) Baso # (Auto) PT INR APTT pO2 35 VBG pH 7.44 H VBG pCO2 48 VBG HCO3 29.8 VBG Total CO2 34.1 H VBG O2 Sat (Calc) 65.7 H VBG Base Excess 7.2 H VBG Potassium 4.5 Glucose 451 H* Lactate 0.9 Crit Value Called To Nenita goncalves Crit Value Called By Tonie Crit Value Read Back Y Blood Gas Notified Time 2040 Sodium 139.0 Potassium Chloride 105.0 Carbon Dioxide Anion Gap BUN Creatinine Est GFR ( Amer) Est GFR (Non-Af Amer) POC Glucose (mg/dL) 298 H 324 H Random Glucose Calcium Total Bilirubin AST ALT Alkaline Phosphatase Total Creatine Kinase CK-MB (Mass) Troponin I NT-Pro-B Natriuret Pep Total Protein Albumin Globulin Albumin/Globulin Ratio Beta HCG, Quant Venous Blood Potassium 4.5 Mycoplasma pneumon IgM 10/31/18 10/31/18 10/31/18 10:58 15:04 15:04 WBC 5.9 RBC 3.07 L Hgb 9.5 L Hct 30.1 L MCV 98.0 MCH 31.0 MCHC 31.6 L RDW 15.9 H Plt Count 251 MPV 9.0 Neut % (Auto) 56.0 Lymph % (Auto) 18.6 L [place] % (Auto) 5.0 Eos % (Auto) 18.0 H Baso % (Auto) 2.4 H Neut # (Auto) 3.3 Lymph # (Auto) 1.1 [place] # (Auto) 0.3 Eos # (Auto) 1.1 H Baso # (Auto) 0.1 PT INR APTT pO2 VBG pH VBG pCO2 VBG HCO3 VBG Total CO2 VBG O2 Sat (Calc) VBG Base Excess VBG Potassium Glucose Lactate Crit Value Called To Crit Value Called By Crit Value Read Back Blood Gas Notified Time Sodium 135 Potassium 5.3 H Chloride 94 L Carbon Dioxide 26 Anion Gap 20 BUN 37 H Creatinine 5.7 H Est GFR ( Amer) 11 Est GFR (Non-Af Amer) 9 POC Glucose (mg/dL) 343 H Random Glucose 302 H D Calcium 8.5 L Total Bilirubin 0.6 AST 37 H D ALT 20 Alkaline Phosphatase 123 Total Creatine Kinase CK-MB (Mass) Troponin I < 0.0120 NT-Pro-B Natriuret Pep Total Protein 6.7 Albumin 4.0 Globulin 2.8 Albumin/Globulin Ratio 1.4 Beta HCG, Quant Venous Blood Potassium Mycoplasma pneumon IgM 10/31/18 10/31/18 15:04 16:08 WBC RBC Hgb Hct MCV MCH MCHC RDW Plt Count MPV Neut % (Auto) Lymph % (Auto) [place] % (Auto) Eos % (Auto) Baso % (Auto) Neut # (Auto) Lymph # (Auto) [place] # (Auto) Eos # (Auto) Baso # (Auto) PT INR APTT pO2 VBG pH VBG pCO2 VBG HCO3 VBG Total CO2 VBG O2 Sat (Calc) VBG Base Excess VBG Potassium Glucose Lactate Crit Value Called To Crit Value Called By Crit Value Read Back Blood Gas Notified Time Sodium Potassium Chloride Carbon Dioxide Anion Gap BUN Creatinine Est GFR ( Amer) Est GFR (Non-Af Amer) POC Glucose (mg/dL) 107 Random Glucose Calcium Total Bilirubin AST ALT Alkaline Phosphatase Total Creatine Kinase CK-MB (Mass) Troponin I NT-Pro-B Natriuret Pep Total Protein Albumin Globulin Albumin/Globulin Ratio Beta HCG, Quant Venous Blood Potassium Mycoplasma pneumon IgM Negative
[2018-10-31] MEDS: (Lantus) Insulin Glargine, Recombinant SC SCH (21:54)
[2018-10-31] MEDS ORDERED: (Novolin R) Insulin Human Regular 100 units/ml vial SC ONE (23:40)
[2018-11-01] MEDS: HYDROmorphone 0.5 mg/0.5 ml ISec IM PRN ×2 (02:13→05:32)
[2018-11-01] MEDS: MethylPREDNISolone 40 mg Vial IVP SCH ×3 (06:47→21:50)
[2018-11-01] MEDS ORDERED: (Novolin R) Insulin Human Regular 100 units/ml vial SC SCH (08:34)
[2018-11-01] MEDS: (Novolin R) Insulin Human Regular 100 units/ml vial SC SCH ×4 (08:46→22:01)
[2018-11-01] MEDS: Pantoprazole 40 mg EC Tab PO SCH (09:15)
[2018-11-01] MEDS: Sucralfate 1 gm/10 ml Oral Susp UD PO SCH ×4 (09:16→21:52)
[2018-11-01] MEDS: HYDROmorphone 1 mg/ml ISec IVP PRN ×4 (09:37→21:51)
[2018-11-01] MEDS: Azithromycin 500 MG in Sodium Chloride 0.9% 250 ML IVPB SCH (10:27)
--- NOTE | 2018-11-01 11:35 | CP.PCM.CON ---
History of Present Illness - History of Present Illness History of Present Illness: INFECTIOUS DISEASE CONSULT; HPI; Patient is a 32 year old female with a history of anemia, anxiety, asthma, bronchitis, CHF, diabetes, hyperthyroidism, hypothyroidism, kidney stones, pancreatitis, ESRD on hemodialysis, CKD, seizures, sleep apnea, chronic pain, who presented to the ED yesterday (10/30) with complaints of SOB. She also reports an episode of chest pain that lasted several minutes and resolved spontaneously earlier in the day. She reports of swelling in her legs. CHEST X-RAY ON ADMISSION SHOWED DIFFUSE PULMONARY EDEMA.pATIENT UNDERWENT EMERGENCY HEMODIALYSIS ON SUNDAY BUT STILL HAS SWELLING OF HER LEGS. PATIENT ALSO UNDERWENT VQ SCAN OF THE LUNGS DUE TO HYPOXEMIA , WHICH WAS FOUND TO BE OF LOW PROBABILITY FOR PE. PATIENT PRESENTLY ON ZITHROMAX 500 MG ONCE A DAY DAILY FOR POSSIBLE ATYPICAL PNEUMONIA PER PULMONARY. patient also on IV Solu-Medrol 40 mg IV piggyback every 8 hourly for exacerbation of asthma. INFECTIOUS DISEASE CONSULT REQUESTED BY TELEGRAPH MECH[employer]IC RULE OUT PCP. PATIENT DENIES ANY PREVIOUS HISTORY OFF pcp PNEUMONIA. C/O DRY COUGH.DENIES HISTORY OF HEMOPTYSIS. NO RECENT HISTORY OF TRAVEL OR EXPOSURE TO ANY SICK CONTACTS. ALLERGIES; LATEX, MORPHINE, TRAMADOL, HYDROMORPHONE, KETOROLAC TROMETHAMINE. PMH: Anemia, anxiety, asthma, bronchitis, CHF, diabetes, hyperthyroidism, hypothyroidism, kidney stones, pancreatitis, ESRD on hemodialysis, CKD, seizures, sleep apnea, chronic pain Surg: Cholecystectomy, coronary stent Social: Denies alcohol, tobacco, illicit drugs FMH: Unknown Review of Systems - Constitutional Constitutional: Malaise. absent: Chills, Fever - EENT Nose/Mouth/Throat: absent: Post Nasal Drip, Sinus Pressure, Mouth Lesions, Mouth Pain, Odynophagia - Cardiovascular Cardiovascular: Chest Pain, Dyspnea on Exertion, Leg Edema, Pedal Edema - Respiratory Respiratory: Cough, Dyspnea, Chest Congestion - Gastrointestinal Gastrointestinal: absent: Abdominal Pain, Constipation, Diarrhea, Odynophagia, Vomiting - Genitourinary Genitourinary: absent: Dysuria, Urinary Hesitance - Integumentary Integumentary: absent: Rash - Neurological Neurological: absent: Headaches - Endocrine Endocrine: As Per HPI - Hematologic/Lymphatic Hematologic: As Per HPI. absent: Easy Bleeding, Easy Bruising, Lymphadenopathy Past Patient History - Infectious Disease Hx of Infectious Diseases: None - Tetanus Immunizations Tetanus Immunization: Unknown - Past Medical History & Family History Past Medical History?: Yes - Past Social History Smoking Status: Never Smoked - CARDIAC Hx Congestive Heart Failure: Yes Hx Hypercholesterolemia: Yes Hx Hypertension: Yes Hx Peripheral Edema: Yes - PULMONARY Hx Asthma: Yes Hx Bronchitis: Yes Hx Pneumonia: Yes Hx Sleep Apnea: Yes - NEUROLOGICAL Hx Seizures: Yes - HEENT Hx HEENT Problems: Yes Hx Cataracts: Yes (BOTH EYES) Hx Glaucoma: Yes (BOTH EYES) - RENAL Hx Chronic Kidney Disease: Yes Hx Kidney Stones: Yes - ENDOCRINE/METABOLIC Hx Hyperthyroidism: Yes Hx Hypothyroidism: Yes - HEMATOLOGICAL/ONCOLOGICAL Hx Anemia: Yes - INTEGUMENTARY Hx Dermatological Problems: Yes Other/Comment: DRY ITCHY SKIN ;multiple/generalized dark spots on skin. left toe blister - MUSCULOSKELETAL/RHEUMATOLOGICAL Hx Falls: No Hx Fractures: Yes (LEFT FOOT) - GASTROINTESTINAL Hx Gall Bladder Disease: Yes Hx Gastritis: Yes Hx Pancreatitis: Yes - PSYCHIATRIC Hx Anxiety: Yes Hx Substance Use: No - SURGICAL HISTORY Hx Cholecystectomy: Yes Hx Coronary Stent: Yes - ANESTHESIA Hx Anesthesia: Yes Hx Anesthesia Reactions: No Hx Malignant Hyperthermia: No Meds Allergies/Adverse Reactions: Allergies Allergy/AdvReac Type Severity Reaction Status Date / Time ketorolac tromethamine Allergy RASH Verified 10/12/18 14:41 [From Toradol] latex Allergy RASH Verified 10/12/18 14:41 morphine Allergy RASH Verified 10/12/18 14:41 tramadol Allergy RASH Verified 10/12/18 14:41 hydromorphone AdvReac ITCHING Verified 10/12/18 14:41 - Medications Medications: Current Medications Amlodipine Besylate (Norvasc) 5 mg PO Q24H [facility] Last Admin: 11/01/18 09:14 Dose: 5 mg Aspirin (Ecotrin) 81 mg PO DAILY [facility] Last Admin: 11/01/18 09:15 Dose: 81 mg Calcium Acetate (Phoslo) 667 mg PO TID [facility] Last Admin: 11/01/18 09:15 Dose: 667 mg Carvedilol (Coreg) 3.125 mg PO Q12H [facility] Last Admin: 11/01/18 09:14 Dose: 3.125 mg Clonidine HCl (Catapres) 0.3 mg PO Q12H [facility] Last Admin: 11/01/18 09:14 Dose: 0.3 mg Dextrose (Dextrose 50% Inj) 0 ml IV STAT PRN; Protocol PRN Reason: Hypoglycemia Protocol Dextrose (Glutose 15) 0 gm PO ONCE PRN; Protocol PRN Reason: Hypoglycemia Protocol Diphenhydramine HCl (Benadryl) 50 mg IVP ONCE PRN PRN Reason: itchiness Last Admin: 10/31/18 14:56 Dose: 50 mg Diphenhydramine HCl (Benadryl) 25 mg PO Q4H PRN PRN Reason: Itching / Pruritus Last Admin: 11/01/18 09:36 Dose: 25 mg Docusate Sodium (Colace) 100 mg PO TID [facility] Last Admin: 11/01/18 09:15 Dose: 100 mg Gabapentin (Neurontin) 100 mg PO BID [facility] Last Admin: 11/01/18 09:14 Dose: 100 mg Glucagon (Glucagen Diagnostic Kit) 0 mg IM STAT PRN; Protocol PRN Reason: Hypoglycemia Protocol Heparin Sodium (Porcine) (Heparin) 5,000 units SC Q12 [facility] Last Admin: 10/31/18 21:54 Dose: Not Given Hydromorphone HCl (Dilaudid) 1 mg IVP Q4 PRN PRN Reason: FOR SEVERE PAIN 8-10 Last Admin: 11/01/18 09:37 Dose: 1 mg Dextrose (Dextrose 5% In Water 1000 Ml) 1,000 mls @ 0 mls/hr IV .Q0M PRN; Protocol PRN Reason: Hypoglycemia Protocol Azithromycin 500 mg/ Sodium (Chloride) 250 mls @ 250 mls/hr IVPB DAILY [facility]; Protocol Last Admin: 10/31/18 13:59 Dose: Not Given Insulin Glargine (Lantus) 25 unit SC HS [facility] Last Admin: 10/31/18 21:54 Dose: 25 units Insulin Human Regular (Novolin R) 0 unit SC ACHS [facility]; Protocol Last Admin: 11/01/18 08:46 Dose: 6 unit Methylprednisolone (Solu-Medrol) 40 mg IVP Q8 [facility] Last Admin: 11/01/18 06:47 Dose: 40 mg Ondansetron HCl (Zofran Tab) 8 mg PO Q8 [facility] Last Admin: 11/01/18 06:50 Dose: Not Given Pantoprazole Sodium (Protonix Ec Tab) 40 mg PO DAILY [facility] Last Admin: 11/01/18 09:15 Dose: 40 mg Pneumococcal Polyvalent Vaccine (Pneumovax 23 Vaccine) 0.5 ml IM .ONCE ONE Stop: 11/04/18 10:01 Sucralfate (Carafate Oral Susp) 1 gm PO QID [facility] Last Admin: 11/01/18 09:16 Dose: 1 gm Physical Exam - Constitutional Appears: No Acute Distress - Head Exam Head Exam: NORMAL INSPECTION - Eye Exam Eye Exam: EOMI, PERRL. absent: Scleral icterus - ENT Exam ENT Exam: Normal Oropharynx - Neck Exam Neck exam: Positive for: Normal Inspection. Negative for: Thyromegaly - Respiratory Exam Respiratory Exam: Prolonged Expiratory Phase, Rales, NORMAL BREATHING PATTERN - Cardiovascular Exam Cardiovascular Exam: REGULAR RHYTHM, +S1, +S2 - GI/Abdominal Exam GI & Abdominal Exam: Normal Bowel Sounds, Soft. absent: Organomegaly - Extremities Exam Extremities exam: Positive for: normal capillary refill, pedal edema (2+). Negative for: calf tenderness - Neurological Exam Neurological exam: Alert, CN II-XII Intact, Oriented x3, Reflexes Normal - Psychiatric Exam Psychiatric exam: Normal Mood - Skin Skin Exam: Normal Color, Warm Results - Vital Signs Recent Vital Signs: Last Vital Signs Temp 97.4 F L 11/01/18 08:14 Pulse 72 11/01/18 08:14 Resp 20 11/01/18 08:14 BP 158/96 H 11/01/18 08:14 Pulse Ox 100 11/01/18 08:14 - Labs Result Diagrams: 10/31/18 15:04 10/31/18 15:04 Labs: Laboratory Results - last 24 hr 10/31/18 10/31/18 10/31/18 10:58 15:04 15:04 WBC 5.9 RBC 3.07 L Hgb 9.5 L Hct 30.1 L MCV 98.0 MCH 31.0 MCHC 31.6 L RDW 15.9 H Plt Count 251 MPV 9.0 Neut % (Auto) 56.0 Lymph % (Auto) 18.6 L [place] % (Auto) 5.0 Eos % (Auto) 18.0 H Baso % (Auto) 2.4 H Neut # (Auto) 3.3 Lymph # (Auto) 1.1 [place] # (Auto) 0.3 Eos # (Auto) 1.1 H Baso # (Auto) 0.1 Sodium 135 Potassium 5.3 H Chloride 94 L Carbon Dioxide 26 Anion Gap 20 BUN 37 H Creatinine 5.7 H Est GFR ( Amer) 11 Est GFR (Non-Af Amer) 9 POC Glucose (mg/dL) 343 H Random Glucose 302 H D Calcium 8.5 L Total Bilirubin 0.6 AST 37 H D ALT 20 Alkaline Phosphatase 123 Troponin I < 0.0120 Total Protein 6.7 Albumin 4.0 Globulin 2.8 Albumin/Globulin Ratio 1.4 Mycoplasma pneumon IgM 10/31/18 10/31/18 10/31/18 15:04 16:08 21:36 WBC RBC Hgb Hct MCV MCH MCHC RDW Plt Count MPV Neut % (Auto) Lymph % (Auto) [place] % (Auto) Eos % (Auto) Baso % (Auto) Neut # (Auto) Lymph # (Auto) [place] # (Auto) Eos # (Auto) Baso # (Auto) Sodium Potassium Chloride Carbon Dioxide Anion Gap BUN Creatinine Est GFR ( Amer) Est GFR (Non-Af Amer) POC Glucose (mg/dL) 107 406 H* Random Glucose Calcium Total Bilirubin AST ALT Alkaline Phosphatase Troponin I Total Protein Albumin Globulin Albumin/Globulin Ratio Mycoplasma pneumon IgM Negative 10/31/18 11/01/18 11/01/18 23:19 02:28 04:33 WBC RBC Hgb Hct MCV MCH MCHC RDW Plt Count MPV Neut % (Auto) Lymph % (Auto) [place] % (Auto) Eos % (Auto) Baso % (Auto) Neut # (Auto) Lymph # (Auto) [place] # (Auto) Eos # (Auto) Baso # (Auto) Sodium Potassium Chloride Carbon Dioxide Anion Gap BUN Creatinine Est GFR ( Amer) Est GFR (Non-Af Amer) POC Glucose (mg/dL) 475 H* > 500 H* 413 H* Random Glucose Calcium Total Bilirubin AST ALT Alkaline Phosphatase Troponin I Total Protein Albumin Globulin Albumin/Globulin Ratio Mycoplasma pneumon IgM 11/01/18 06:21 WBC RBC Hgb Hct MCV MCH MCHC RDW Plt Count MPV Neut % (Auto) Lymph % (Auto) [place] % (Auto) Eos % (Auto) Baso % (Auto) Neut # (Auto) Lymph # (Auto) [place] # (Auto) Eos # (Auto) Baso # (Auto) Sodium Potassium Chloride Carbon Dioxide Anion Gap BUN Creatinine Est GFR ( Amer) Est GFR (Non-Af Amer) POC Glucose (mg/dL) 308 H Random Glucose Calcium Total Bilirubin AST ALT Alkaline Phosphatase Troponin I Total Protein Albumin Globulin Albumin/Globulin Ratio Mycoplasma pneumon IgM - Imaging and Cardiology Chest x-ray Status: Report reviewed by me (diffuse pulmonary edema.) Assessment & Plan (1) Chest pain Status: Acute (2) Dyspnea Status: Acute (3) Fluid overload Status: Acute (4) ESRD (end stage renal disease) on dialysis Status: Acute (5) Diabetes Status: Chronic - Assessment and Plan (Free Text) Plan: PLAN; PANCULTURES ESR CRP pRO-CALCITONIN LDH. MRSA SCREEN. ATYPICAL TITERS STREP ANTIGEN. CONTINUE zITHROMAX 500 MILLIGRAMS IVPB ONCE A DAY DAILY. ADD PO BACTRIM 1DS LOADING DOSE 11/01/18 F/U BACTRIM 1SS PO OD DAILY. WATCH FOR HYPERKALEMIA,. PATIENT MOST LIKELY FLUID OVERLOAD. MAY NEED EXTRA HEMODIALYSIS. CASE DISCUSSED WITH PULMONARY.. PATIENT FOR HEMODIALYSIS IN A.M.( SUNDAY) PER NEPHROLOGY. NOTE;PATIENT REFUSED BLOOD WORKS TODAY. RN TOLD TO DO,BLOOD WORKS TOMORROW AT [facility].
[2018-11-01] MEDS ORDERED: HYDROmorphone 1 mg/ml ISec IVP PRN (12:00)
[2018-11-01] MEDS: Nitroglycerin 2% Ointment Foilpak UD TOP PRN (12:27)
[2018-11-01] MEDS ORDERED: Tmp-Smz 800 mg-160 mg DS Tab PO ONE (14:00)
--- NOTE | 2018-11-01 15:10 | CP.PCM.PN ---
Subjective - Date & Time of Evaluation Date of Evaluation: 11/01/18 Time of Evaluation: 10:00 - Subjective Subjective: Patient seen and examined at bedside. States she feels well. Will go for additional dialysis tomorrow. She denies cough. Afebrile. Physical Exam: General: Awake, alert, oriented; comfortable; not in any distress Cardio: Regular rhythm and rate; +S1 +S2 Pulm: CTA b/l Abd: Soft, non-distended Lung VQ Scan 10/31: Low probability ventilation perfusion scan for pulmonary embolism Assessment & Plan: Pulmonary Edema - Test for Mycoplasma and Legionella - Continue steroids - Continue azithromycin - Consider additional dialysis session - Consult with ID Objective - Vital Signs/Intake and Output Vital Signs (last 24 hours): Temp Pulse Resp BP Pulse Ox 97.4 F L 80 20 171/97 H 100 11/01/18 08:14 11/01/18 14:13 11/01/18 08:14 11/01/18 14:13 11/01/18 08:14 - Medications Medications: Current Medications Amlodipine Besylate (Norvasc) 5 mg PO Q24H [facility] Last Admin: 11/01/18 09:14 Dose: 5 mg Aspirin (Ecotrin) 81 mg PO DAILY [facility] Last Admin: 11/01/18 09:15 Dose: 81 mg Calcium Acetate (Phoslo) 667 mg PO TID [facility] Last Admin: 11/01/18 13:16 Dose: 667 mg Carvedilol (Coreg) 3.125 mg PO Q12H [facility] Last Admin: 11/01/18 09:14 Dose: 3.125 mg Clonidine HCl (Catapres) 0.3 mg PO Q12H [facility] Last Admin: 11/01/18 09:14 Dose: 0.3 mg Dextrose (Dextrose 50% Inj) 0 ml IV STAT PRN; Protocol PRN Reason: Hypoglycemia Protocol Dextrose (Glutose 15) 0 gm PO ONCE PRN; Protocol PRN Reason: Hypoglycemia Protocol Diphenhydramine HCl (Benadryl) 50 mg IVP ONCE PRN PRN Reason: itchiness Last Admin: 10/31/18 14:56 Dose: 50 mg Diphenhydramine HCl (Benadryl) 25 mg PO Q4H PRN PRN Reason: Itching / Pruritus Last Admin: 11/01/18 13:34 Dose: 25 mg Docusate Sodium (Colace) 100 mg PO TID [facility] Last Admin: 11/01/18 13:15 Dose: 100 mg Gabapentin (Neurontin) 100 mg PO BID [facility] Last Admin: 11/01/18 09:14 Dose: 100 mg Glucagon (Glucagen Diagnostic Kit) 0 mg IM STAT PRN; Protocol PRN Reason: Hypoglycemia Protocol Heparin Sodium (Porcine) (Heparin) 5,000 units SC Q12 [facility] Last Admin: 11/01/18 09:16 Dose: Not Given Hydromorphone HCl (Dilaudid) 1 mg IVP Q4 PRN PRN Reason: FOR SEVERE PAIN 8-10 Last Admin: 11/01/18 13:34 Dose: 1 mg Dextrose (Dextrose 5% In Water 1000 Ml) 1,000 mls @ 0 mls/hr IV .Q0M PRN; Protocol PRN Reason: Hypoglycemia Protocol Azithromycin 500 mg/ Sodium (Chloride) 250 mls @ 250 mls/hr IVPB DAILY [facility]; Protocol Last Admin: 11/01/18 10:27 Dose: 250 mls/hr Insulin Glargine (Lantus) 25 unit SC HS [facility] Last Admin: 10/31/18 21:54 Dose: 25 units Insulin Human Regular (Novolin R) 0 unit SC ACHS [facility]; Protocol Last Admin: 11/01/18 12:28 Dose: 10 unit Methylprednisolone (Solu-Medrol) 40 mg IVP Q8 [facility] Last Admin: 11/01/18 13:15 Dose: 40 mg Nitroglycerin (Nitro-Bid 2% Oint) 1 ea TOP Q6H PRN PRN Reason: Other Last Admin: 11/01/18 12:27 Dose: 1 ea Ondansetron HCl (Zofran Tab) 8 mg PO Q8 [facility] Last Admin: 11/01/18 13:17 Dose: Not Given Pantoprazole Sodium (Protonix Ec Tab) 40 mg PO DAILY [facility] Last Admin: 11/01/18 09:15 Dose: 40 mg Pneumococcal Polyvalent Vaccine (Pneumovax 23 Vaccine) 0.5 ml IM .ONCE ONE Stop: 11/04/18 10:01 Sucralfate (Carafate Oral Susp) 1 gm PO QID [facility] Last Admin: 11/01/18 13:16 Dose: 1 gm Trimethoprim/Sulfamethoxazole (Bactrim Ss Tab) 1 tab PO Q24H [facility]; Protocol - Labs Labs: 10/31/18 15:04 10/31/18 15:04 PT 12.4 SECONDS (9.7-12.2) H 10/30/18 20:37 INR 1.1 10/30/18 20:37 APTT 81 SECONDS (21-34) H 10/30/18 20:37
--- NOTE | 2018-11-01 19:33 | CP.PCM.PN ---
Subjective - Date & Time of Evaluation Date of Evaluation: 11/01/18 Time of Evaluation: 08:00 - Subjective Subjective: clinically same Objective - Vital Signs/Intake and Output Vital Signs (last 24 hours): Temp Pulse Resp BP Pulse Ox 97.9 F 70 20 171/86 H 96 11/01/18 15:54 11/01/18 15:54 11/01/18 15:54 11/01/18 15:54 11/01/18 15:54 - Medications Medications: Current Medications Amlodipine Besylate (Norvasc) 5 mg PO Q24H [facility] Last Admin: 11/01/18 09:14 Dose: 5 mg Aspirin (Ecotrin) 81 mg PO DAILY [facility] Last Admin: 11/01/18 09:15 Dose: 81 mg Calcium Acetate (Phoslo) 667 mg PO TID [facility] Last Admin: 11/01/18 17:22 Dose: 667 mg Carvedilol (Coreg) 3.125 mg PO Q12H [facility] Last Admin: 11/01/18 09:14 Dose: 3.125 mg Clonidine HCl (Catapres) 0.3 mg PO Q12H [facility] Last Admin: 11/01/18 09:14 Dose: 0.3 mg Dextrose (Dextrose 50% Inj) 0 ml IV STAT PRN; Protocol PRN Reason: Hypoglycemia Protocol Dextrose (Glutose 15) 0 gm PO ONCE PRN; Protocol PRN Reason: Hypoglycemia Protocol Diphenhydramine HCl (Benadryl) 50 mg IVP ONCE PRN PRN Reason: itchiness Last Admin: 10/31/18 14:56 Dose: 50 mg Diphenhydramine HCl (Benadryl) 25 mg PO Q4H PRN PRN Reason: Itching / Pruritus Last Admin: 11/01/18 17:45 Dose: 25 mg Docusate Sodium (Colace) 100 mg PO TID [facility] Last Admin: 11/01/18 17:22 Dose: 100 mg Gabapentin (Neurontin) 100 mg PO BID [facility] Last Admin: 11/01/18 17:22 Dose: 100 mg Glucagon (Glucagen Diagnostic Kit) 0 mg IM STAT PRN; Protocol PRN Reason: Hypoglycemia Protocol Heparin Sodium (Porcine) (Heparin) 5,000 units SC Q12 [facility] Last Admin: 11/01/18 09:16 Dose: Not Given Hydromorphone HCl (Dilaudid) 1 mg IVP Q4 PRN PRN Reason: FOR SEVERE PAIN 8-10 Last Admin: 11/01/18 17:45 Dose: 1 mg Dextrose (Dextrose 5% In Water 1000 Ml) 1,000 mls @ 0 mls/hr IV .Q0M PRN; Protocol PRN Reason: Hypoglycemia Protocol Azithromycin 500 mg/ Sodium (Chloride) 250 mls @ 250 mls/hr IVPB DAILY [facility]; Protocol Last Admin: 11/01/18 10:27 Dose: 250 mls/hr Insulin Glargine (Lantus) 25 unit SC HS [facility] Last Admin: 10/31/18 21:54 Dose: 25 units Insulin Human Regular (Novolin R) 0 unit SC ACHS [facility]; Protocol Last Admin: 11/01/18 17:22 Dose: 10 unit Methylprednisolone (Solu-Medrol) 40 mg IVP Q8 [facility] Last Admin: 11/01/18 13:15 Dose: 40 mg Nitroglycerin (Nitro-Bid 2% Oint) 1 ea TOP Q6H PRN PRN Reason: Other Last Admin: 11/01/18 12:27 Dose: 1 ea Ondansetron HCl (Zofran Tab) 8 mg PO Q8 [facility] Last Admin: 11/01/18 13:17 Dose: Not Given Pantoprazole Sodium (Protonix Ec Tab) 40 mg PO DAILY [facility] Last Admin: 11/01/18 09:15 Dose: 40 mg Pneumococcal Polyvalent Vaccine (Pneumovax 23 Vaccine) 0.5 ml IM .ONCE ONE Stop: 11/04/18 10:01 Sucralfate (Carafate Oral Susp) 1 gm PO QID [facility] Last Admin: 11/01/18 17:22 Dose: 1 gm Trimethoprim/Sulfamethoxazole (Bactrim Ss Tab) 1 tab PO Q24H [facility]; Protocol - Labs Labs: 10/31/18 15:04 10/31/18 15:04 PT 12.4 SECONDS (9.7-12.2) H 10/30/18 20:37 INR 1.1 10/30/18 20:37 APTT 81 SECONDS (21-34) H 10/30/18 20:37 - Constitutional Appears: Well - Head Exam Head Exam: ATRAUMATIC, NORMAL INSPECTION, NORMOCEPHALIC - Eye Exam Eye Exam: EOMI, Normal appearance, PERRL Pupil Exam: NORMAL ACCOMODATION, PERRL - ENT Exam ENT Exam: Mucous Membranes Moist, Normal Exam - Neck Exam Neck Exam: Full ROM, Normal Inspection. absent: Lymphadenopathy - Respiratory Exam Respiratory Exam: Decreased Breath Sounds - Cardiovascular Exam Cardiovascular Exam: REGULAR RHYTHM, +S1, +S2 - GI/Abdominal Exam GI & Abdominal Exam: Soft, Diminished Bowel Sounds - Rectal Exam Rectal Exam: Deferred
[2018-11-01] MEDS ORDERED: (Novolin R) Insulin Human Regular 100 units/ml vial SC ONE (21:25)
[2018-11-01] MEDS: (Lantus) Insulin Glargine, Recombinant SC SCH (21:51)
[2018-11-02] MEDS: HYDROmorphone 1 mg/ml ISec IVP PRN ×6 (01:49→22:28)
[2018-11-02] MEDS: (Novolin R) Insulin Human Regular 100 units/ml vial SC SCH ×5 (02:04→22:18)
[2018-11-02] MEDS: MethylPREDNISolone 40 mg Vial IVP SCH ×3 (07:33→22:08)
[2018-11-02] MEDS: Sucralfate 1 gm/10 ml Oral Susp UD PO SCH ×4 (09:48→22:06)
[2018-11-02] MEDS: Pantoprazole 40 mg EC Tab PO SCH (09:48)
[2018-11-02] MEDS: Azithromycin 500 MG in Sodium Chloride 0.9% 250 ML IVPB SCH (10:00)
[2018-11-02] MEDS ORDERED: DiphenhydrAMINE 50 mg/ml Inj IVP STA (15:01)
[2018-11-02] MEDS: Tmp-Smz 400 mg-80 mg SS Tab PO SCH (15:01)
[2018-11-02 15:29] LABS: ALB/GLOB RATIO 1.6 (1.0-2.1); ALBUMIN 4.3 g/dL (3.5-5.0); CALCIUM 8.9 mg/dl (8.6-10.4)
--- NOTE | 2018-11-02 15:35 | CP.PCM.PN ---
Subjective - Date & Time of Evaluation Date of Evaluation: 11/02/18 Objective - Vital Signs/Intake and Output Vital Signs (last 24 hours): Temp Pulse Resp BP Pulse Ox 97.3 F L 67 20 180/100 H 95 11/02/18 07:48 11/02/18 09:30 11/02/18 07:48 11/02/18 09:30 11/02/18 07:48 - Medications Medications: Current Medications Amlodipine Besylate (Norvasc) 5 mg PO Q24H [facility] Last Admin: 11/02/18 07:35 Dose: 5 mg Aspirin (Ecotrin) 81 mg PO DAILY [facility] Last Admin: 11/02/18 09:48 Dose: 81 mg Calcium Acetate (Phoslo) 667 mg PO TID [facility] Last Admin: 11/02/18 14:03 Dose: 667 mg Carvedilol (Coreg) 3.125 mg PO Q12H [facility] Last Admin: 11/02/18 06:42 Dose: 3.125 mg Clonidine HCl (Catapres) 0.3 mg PO Q12H [facility] Last Admin: 11/02/18 06:42 Dose: 0.3 mg Dextrose (Dextrose 50% Inj) 0 ml IV STAT PRN; Protocol PRN Reason: Hypoglycemia Protocol Dextrose (Glutose 15) 0 gm PO ONCE PRN; Protocol PRN Reason: Hypoglycemia Protocol Diphenhydramine HCl (Benadryl) 50 mg IVP ONCE PRN PRN Reason: itchiness Last Admin: 10/31/18 14:56 Dose: 50 mg Diphenhydramine HCl (Benadryl) 25 mg PO Q4H PRN PRN Reason: Itching / Pruritus Last Admin: 11/02/18 14:03 Dose: 25 mg Docusate Sodium (Colace) 100 mg PO TID [facility] Last Admin: 11/02/18 15:04 Dose: Not Given Gabapentin (Neurontin) 100 mg PO BID [facility] Last Admin: 11/02/18 09:48 Dose: 100 mg Glucagon (Glucagen Diagnostic Kit) 0 mg IM STAT PRN; Protocol PRN Reason: Hypoglycemia Protocol Heparin Sodium (Porcine) (Heparin) 5,000 units SC Q12 [facility] Last Admin: 11/02/18 09:49 Dose: Not Given Hydromorphone HCl (Dilaudid) 1 mg IVP Q4 PRN PRN Reason: FOR SEVERE PAIN 8-10 Last Admin: 11/02/18 14:03 Dose: 1 mg Dextrose (Dextrose 5% In Water 1000 Ml) 1,000 mls @ 0 mls/hr IV .Q0M PRN; Protocol PRN Reason: Hypoglycemia Protocol Azithromycin 500 mg/ Sodium (Chloride) 250 mls @ 250 mls/hr IVPB DAILY [facility]; Protocol Last Admin: 11/02/18 10:00 Dose: Not Given Insulin Glargine (Lantus) 25 unit SC HS [facility] Last Admin: 11/01/18 21:51 Dose: 25 units Insulin Human Regular (Novolin R) 0 unit SC ACHS [facility]; Protocol Last Admin: 11/02/18 11:30 Dose: Not Given Methylprednisolone (Solu-Medrol) 40 mg IVP Q8 [facility] Last Admin: 11/02/18 14:02 Dose: 40 mg Nitroglycerin (Nitro-Bid 2% Oint) 1 ea TOP Q6H PRN PRN Reason: Other Last Admin: 11/01/18 12:27 Dose: 1 ea Ondansetron HCl (Zofran Tab) 8 mg PO Q8 [facility] Last Admin: 11/02/18 14:02 Dose: 8 mg Pantoprazole Sodium (Protonix Ec Tab) 40 mg PO DAILY [facility] Last Admin: 11/02/18 09:48 Dose: 40 mg Pneumococcal Polyvalent Vaccine (Pneumovax 23 Vaccine) 0.5 ml IM .ONCE ONE Stop: 11/04/18 10:01 Sucralfate (Carafate Oral Susp) 1 gm PO QID [facility] Last Admin: 11/02/18 15:03 Dose: Not Given Trimethoprim/Sulfamethoxazole (Bactrim Ss Tab) 1 tab PO Q24H [facility]; Protocol Last Admin: 11/02/18 15:01 Dose: Not Given - Labs Labs: 10/31/18 15:04 11/02/18 14:58 PT 12.4 SECONDS (9.7-12.2) H 10/30/18 20:37 INR 1.1 10/30/18 20:37 APTT 81 SECONDS (21-34) H 10/30/18 20:37 - Constitutional Appears: Well - Head Exam Head Exam: ATRAUMATIC, NORMAL INSPECTION, NORMOCEPHALIC - Eye Exam Eye Exam: EOMI, Normal appearance, PERRL Pupil Exam: NORMAL ACCOMODATION, PERRL - ENT Exam ENT Exam: Mucous Membranes Moist, Normal Exam - Neck Exam Neck Exam: Full ROM, Normal Inspection. absent: Lymphadenopathy - Respiratory Exam Respiratory Exam: Decreased Breath Sounds - Cardiovascular Exam Cardiovascular Exam: REGULAR RHYTHM, +S1, +S2 - GI/Abdominal Exam GI & Abdominal Exam: Soft, Diminished Bowel Sounds - Rectal Exam Rectal Exam: Deferred
--- NOTE | 2018-11-02 15:41 | CP.PCM.PN ---
Subjective - Date & Time of Evaluation Date of Evaluation: 11/02/18 Time of Evaluation: 15:00 - Subjective Subjective: SEEN ON RENAL F/U SEEN ON HD .. VSS FEELS IMPROVED Objective - Vital Signs/Intake and Output Vital Signs (last 24 hours): Temp Pulse Resp BP Pulse Ox 97.3 F L 67 20 180/100 H 95 11/02/18 07:48 11/02/18 09:30 11/02/18 07:48 11/02/18 09:30 11/02/18 07:48 - Medications Medications: Current Medications Amlodipine Besylate (Norvasc) 5 mg PO Q24H [facility] Last Admin: 11/02/18 07:35 Dose: 5 mg Aspirin (Ecotrin) 81 mg PO DAILY [facility] Last Admin: 11/02/18 09:48 Dose: 81 mg Calcium Acetate (Phoslo) 667 mg PO TID [facility] Last Admin: 11/02/18 14:03 Dose: 667 mg Carvedilol (Coreg) 3.125 mg PO Q12H [facility] Last Admin: 11/02/18 06:42 Dose: 3.125 mg Clonidine HCl (Catapres) 0.3 mg PO Q12H [facility] Last Admin: 11/02/18 06:42 Dose: 0.3 mg Dextrose (Dextrose 50% Inj) 0 ml IV STAT PRN; Protocol PRN Reason: Hypoglycemia Protocol Dextrose (Glutose 15) 0 gm PO ONCE PRN; Protocol PRN Reason: Hypoglycemia Protocol Diphenhydramine HCl (Benadryl) 50 mg IVP ONCE PRN PRN Reason: itchiness Last Admin: 10/31/18 14:56 Dose: 50 mg Diphenhydramine HCl (Benadryl) 25 mg PO Q4H PRN PRN Reason: Itching / Pruritus Last Admin: 11/02/18 14:03 Dose: 25 mg Docusate Sodium (Colace) 100 mg PO TID [facility] Last Admin: 11/02/18 15:04 Dose: Not Given Gabapentin (Neurontin) 100 mg PO BID [facility] Last Admin: 11/02/18 09:48 Dose: 100 mg Glucagon (Glucagen Diagnostic Kit) 0 mg IM STAT PRN; Protocol PRN Reason: Hypoglycemia Protocol Heparin Sodium (Porcine) (Heparin) 5,000 units SC Q12 [facility] Last Admin: 11/02/18 09:49 Dose: Not Given Hydromorphone HCl (Dilaudid) 1 mg IVP Q4 PRN PRN Reason: FOR SEVERE PAIN 8-10 Last Admin: 11/02/18 14:03 Dose: 1 mg Dextrose (Dextrose 5% In Water 1000 Ml) 1,000 mls @ 0 mls/hr IV .Q0M PRN; Protocol PRN Reason: Hypoglycemia Protocol Azithromycin 500 mg/ Sodium (Chloride) 250 mls @ 250 mls/hr IVPB DAILY [facility]; Protocol Last Admin: 11/02/18 10:00 Dose: Not Given Insulin Glargine (Lantus) 25 unit SC HS [facility] Last Admin: 11/01/18 21:51 Dose: 25 units Insulin Human Regular (Novolin R) 0 unit SC ACHS [facility]; Protocol Last Admin: 11/02/18 11:30 Dose: Not Given Methylprednisolone (Solu-Medrol) 40 mg IVP Q8 [facility] Last Admin: 11/02/18 14:02 Dose: 40 mg Nitroglycerin (Nitro-Bid 2% Oint) 1 ea TOP Q6H PRN PRN Reason: Other Last Admin: 11/01/18 12:27 Dose: 1 ea Ondansetron HCl (Zofran Tab) 8 mg PO Q8 [facility] Last Admin: 11/02/18 14:02 Dose: 8 mg Pantoprazole Sodium (Protonix Ec Tab) 40 mg PO DAILY [facility] Last Admin: 11/02/18 09:48 Dose: 40 mg Pneumococcal Polyvalent Vaccine (Pneumovax 23 Vaccine) 0.5 ml IM .ONCE ONE Stop: 11/04/18 10:01 Sucralfate (Carafate Oral Susp) 1 gm PO QID [facility] Last Admin: 11/02/18 15:03 Dose: Not Given Trimethoprim/Sulfamethoxazole (Bactrim Ss Tab) 1 tab PO Q24H [facility]; Protocol Last Admin: 11/02/18 15:01 Dose: Not Given - Labs Labs: 10/31/18 15:04 11/02/18 14:58 PT 12.4 SECONDS (9.7-12.2) H 10/30/18 20:37 INR 1.1 10/30/18 20:37 APTT 81 SECONDS (21-34) H 10/30/18 20:37 Assessment and Plan - Assessment and Plan (Free Text) Assessment: ESRD ON HD M W F AND SAT ANEMIA OF CKD .. STABLE ELECTROLYTES ABN .. OK MMP P : C/O PRESENT CARE C/O CURRENT MANAGEMENT
[2018-11-02] MEDS: Nitroglycerin 2% Ointment Foilpak UD TOP PRN (15:55)
--- NOTE | 2018-11-02 17:06 | CP.PCM.PN ---
Subjective - Date & Time of Evaluation Date of Evaluation: 11/02/18 Time of Evaluation: 15:20 - Subjective Subjective: Patient seen and examined during hemodialysis Breathing better Still complaining of lethargy Oxygenating well Objective - Vital Signs/Intake and Output Vital Signs (last 24 hours): Temp Pulse Resp BP Pulse Ox 98.1 F 75 18 200/94 H 98 11/02/18 14:45 11/02/18 14:45 11/02/18 14:45 11/02/18 15:40 11/02/18 14:45 - Medications Medications: Current Medications Amlodipine Besylate (Norvasc) 5 mg PO Q24H [facility] Last Admin: 11/02/18 07:35 Dose: 5 mg Aspirin (Ecotrin) 81 mg PO DAILY [facility] Last Admin: 11/02/18 09:48 Dose: 81 mg Calcium Acetate (Phoslo) 667 mg PO TID [facility] Last Admin: 11/02/18 14:03 Dose: 667 mg Carvedilol (Coreg) 3.125 mg PO Q12H [facility] Last Admin: 11/02/18 06:42 Dose: 3.125 mg Clonidine HCl (Catapres) 0.3 mg PO Q12H [facility] Last Admin: 11/02/18 06:42 Dose: 0.3 mg Dextrose (Dextrose 50% Inj) 0 ml IV STAT PRN; Protocol PRN Reason: Hypoglycemia Protocol Dextrose (Glutose 15) 0 gm PO ONCE PRN; Protocol PRN Reason: Hypoglycemia Protocol Diphenhydramine HCl (Benadryl) 50 mg IVP ONCE PRN PRN Reason: itchiness Last Admin: 10/31/18 14:56 Dose: 50 mg Diphenhydramine HCl (Benadryl) 25 mg PO Q4H PRN PRN Reason: Itching / Pruritus Last Admin: 11/02/18 14:03 Dose: 25 mg Docusate Sodium (Colace) 100 mg PO TID [facility] Last Admin: 11/02/18 15:04 Dose: Not Given Gabapentin (Neurontin) 100 mg PO BID [facility] Last Admin: 11/02/18 09:48 Dose: 100 mg Glucagon (Glucagen Diagnostic Kit) 0 mg IM STAT PRN; Protocol PRN Reason: Hypoglycemia Protocol Heparin Sodium (Porcine) (Heparin) 5,000 units SC Q12 [facility] Last Admin: 11/02/18 09:49 Dose: Not Given Hydromorphone HCl (Dilaudid) 1 mg IVP Q4 PRN PRN Reason: FOR SEVERE PAIN 8-10 Last Admin: 11/02/18 14:03 Dose: 1 mg Dextrose (Dextrose 5% In Water 1000 Ml) 1,000 mls @ 0 mls/hr IV .Q0M PRN; Protocol PRN Reason: Hypoglycemia Protocol Azithromycin 500 mg/ Sodium (Chloride) 250 mls @ 250 mls/hr IVPB DAILY [facility]; Protocol Last Admin: 11/02/18 10:00 Dose: Not Given Insulin Glargine (Lantus) 25 unit SC HS [facility] Last Admin: 11/01/18 21:51 Dose: 25 units Insulin Human Regular (Novolin R) 0 unit SC ACHS [facility]; Protocol Methylprednisolone (Solu-Medrol) 20 mg IVP Q12 [facility] Nitroglycerin (Nitro-Bid 2% Oint) 1 ea TOP Q6H PRN PRN Reason: Other Last Admin: 11/02/18 15:55 Dose: 1 ea Ondansetron HCl (Zofran Tab) 8 mg PO Q8 [facility] Last Admin: 11/02/18 14:02 Dose: 8 mg Pantoprazole Sodium (Protonix Ec Tab) 40 mg PO DAILY [facility] Last Admin: 11/02/18 09:48 Dose: 40 mg Pneumococcal Polyvalent Vaccine (Pneumovax 23 Vaccine) 0.5 ml IM .ONCE ONE Stop: 11/04/18 10:01 Sucralfate (Carafate Oral Susp) 1 gm PO QID [facility] Last Admin: 11/02/18 15:03 Dose: Not Given Trimethoprim/Sulfamethoxazole (Bactrim Ss Tab) 1 tab PO Q24H [facility]; Protocol Last Admin: 11/02/18 15:01 Dose: Not Given - Labs Labs: 10/31/18 15:04 11/02/18 14:58 PT 12.4 SECONDS (9.7-12.2) H 10/30/18 20:37 INR 1.1 10/30/18 20:37 APTT 81 SECONDS (21-34) H 10/30/18 20:37 - Head Exam Head Exam: ATRAUMATIC, NORMOCEPHALIC - ENT Exam ENT Exam: Mucous Membranes Moist - Neck Exam Neck Exam: Normal Inspection - Respiratory Exam Respiratory Exam: Decreased Breath Sounds - Cardiovascular Exam Cardiovascular Exam: REGULAR RHYTHM - GI/Abdominal Exam GI & Abdominal Exam: Soft Assessment and Plan (1) Hypoxemia Assessment & Plan: Secondary to fluid overload versus atypical infection Continue hemodialysis Continue azithromycin and Bactrim Clinically improving Follow-up chest x-ray and ABG Status: Acute (2) ESRD (end stage renal disease) on dialysis Status: Acute (3) Fluid overload Status: Acute
--- NOTE | 2018-11-02 21:27 | CP.PCM.PN ---
Subjective - Date & Time of Evaluation Date of Evaluation: 11/02/18 Time of Evaluation: 21:27 - Subjective Subjective: S/P HD TODAY 11/02/18 FEELS IMPROVED , BUT FEELS WEAK/TIRED . PRESENTLY NOT SHORT OF BREATH BILATERAL LOWER EXTREMITY EDEMA MUCH IMPROVED. LABS ; HIV 1/2 AB -VE. MYCOPLASMA IGM -VE . Objective - Vital Signs/Intake and Output Vital Signs (last 24 hours): Temp Pulse Resp BP Pulse Ox 97.8 F 75 20 163/83 H 96 11/02/18 18:20 11/02/18 19:35 11/02/18 18:20 11/02/18 19:35 11/02/18 18:20 - Medications Medications: Current Medications Amlodipine Besylate (Norvasc) 5 mg PO Q24H [facility] Last Admin: 11/02/18 07:35 Dose: 5 mg Aspirin (Ecotrin) 81 mg PO DAILY [facility] Last Admin: 11/02/18 09:48 Dose: 81 mg Calcium Acetate (Phoslo) 667 mg PO TID [facility] Last Admin: 11/02/18 18:26 Dose: 667 mg Carvedilol (Coreg) 3.125 mg PO Q12H [facility] Last Admin: 11/02/18 18:32 Dose: 3.125 mg Clonidine HCl (Catapres) 0.3 mg PO Q12H [facility] Last Admin: 11/02/18 18:34 Dose: 0.3 mg Dextrose (Dextrose 50% Inj) 0 ml IV STAT PRN; Protocol PRN Reason: Hypoglycemia Protocol Dextrose (Glutose 15) 0 gm PO ONCE PRN; Protocol PRN Reason: Hypoglycemia Protocol Diphenhydramine HCl (Benadryl) 50 mg IVP ONCE PRN PRN Reason: itchiness Last Admin: 10/31/18 14:56 Dose: 50 mg Diphenhydramine HCl (Benadryl) 25 mg PO Q4H PRN PRN Reason: Itching / Pruritus Last Admin: 11/02/18 18:25 Dose: 25 mg Docusate Sodium (Colace) 100 mg PO TID [facility] Last Admin: 11/02/18 18:26 Dose: 100 mg Gabapentin (Neurontin) 100 mg PO BID [facility] Last Admin: 11/02/18 18:25 Dose: 100 mg Glucagon (Glucagen Diagnostic Kit) 0 mg IM STAT PRN; Protocol PRN Reason: Hypoglycemia Protocol Heparin Sodium (Porcine) (Heparin) 5,000 units SC Q12 [facility] Last Admin: 11/02/18 21:20 Dose: Not Given Hydromorphone HCl (Dilaudid) 1 mg IVP Q4 PRN PRN Reason: FOR SEVERE PAIN 8-10 Last Admin: 11/02/18 18:27 Dose: 1 mg Dextrose (Dextrose 5% In Water 1000 Ml) 1,000 mls @ 0 mls/hr IV .Q0M PRN; Protocol PRN Reason: Hypoglycemia Protocol Azithromycin 500 mg/ Sodium (Chloride) 250 mls @ 250 mls/hr IVPB DAILY [facility]; Protocol Last Admin: 11/02/18 10:00 Dose: Not Given Insulin Glargine (Lantus) 25 unit SC HS [facility] Last Admin: 11/01/18 21:51 Dose: 25 units Insulin Human Regular (Novolin R) 0 unit SC ACHS [facility]; Protocol Last Admin: 11/02/18 18:29 Dose: 10 unit Methylprednisolone (Solu-Medrol) 20 mg IVP Q12 [facility] Nitroglycerin (Nitro-Bid 2% Oint) 1 ea TOP Q6H PRN PRN Reason: Other Last Admin: 11/02/18 15:55 Dose: 1 ea Ondansetron HCl (Zofran Tab) 8 mg PO Q8 [facility] Last Admin: 11/02/18 14:02 Dose: 8 mg Pantoprazole Sodium (Protonix Ec Tab) 40 mg PO DAILY [facility] Last Admin: 11/02/18 09:48 Dose: 40 mg Pneumococcal Polyvalent Vaccine (Pneumovax 23 Vaccine) 0.5 ml IM .ONCE ONE Stop: 11/04/18 10:01 Sucralfate (Carafate Oral Susp) 1 gm PO QID [facility] Last Admin: 11/02/18 18:24 Dose: 1 gm Trimethoprim/Sulfamethoxazole (Bactrim Ss Tab) 1 tab PO Q24H [facility]; Protocol Last Admin: 11/02/18 15:01 Dose: Not Given - Labs Labs: 10/31/18 15:04 11/02/18 14:58 PT 12.4 SECONDS (9.7-12.2) H 10/30/18 20:37 INR 1.1 10/30/18 20:37 APTT 81 SECONDS (21-34) H 10/30/18 20:37 - Constitutional Appears: No Acute Distress - Head Exam Head Exam: NORMAL INSPECTION - Eye Exam Eye Exam: EOMI, PERRL - ENT Exam ENT Exam: Normal Oropharynx - Neck Exam Neck Exam: Normal Inspection - Respiratory Exam Respiratory Exam: Rales (FEW BASILAR RALES.), NORMAL BREATHING PATTERN. absent: Accessory Muscle Use - Cardiovascular Exam Cardiovascular Exam: REGULAR RHYTHM, +S1, +S2 - GI/Abdominal Exam GI & Abdominal Exam: Soft, Normal Bowel Sounds - Extremities Exam Extremities Exam: absent: Calf Tenderness, Pedal Edema, Tenderness - Neurological Exam Neurological Exam: Alert, Awake, CN II-XII Intact, Oriented x3, Reflexes Normal - Psychiatric Exam Psychiatric exam: Normal Mood - Skin Skin Exam: Normal Color, Warm Assessment and Plan (1) Chest pain Status: Acute (2) Dyspnea Status: Acute (3) Fluid overload Status: Acute (4) ESRD (end stage renal disease) on dialysis Status: Acute (5) Diabetes Status: Chronic - Assessment and Plan (Free Text) Plan: CONTINUE zITHROMAX 500 MILLIGRAMS IVPB ONCE A DAY DAILY. ADDED PO BACTRIM 1DS LOADING DOSE 11/01/18 F/U BACTRIM 1SS PO OD DAILY. WATCH FOR HYPERKALEMIA. PT ON IV SOLUMEDROL PER PULMONARY. DIURESIS PER DR BORRERO. NOTE; PT STATES SHE HAS SEC . AMENORRHOEA X [address] BORRERO (NEPHROLOGY KNOWS ABOUT IT )
[2018-11-02] MEDS ORDERED: (Novolin R) Insulin Human Regular 100 units/ml vial SC STA (21:33)
[2018-11-02] MEDS ORDERED: (Novolin R) Insulin Human Regular 100 units/ml vial SC SCH (22:00)
[2018-11-02] MEDS: (Lantus) Insulin Glargine, Recombinant SC SCH (22:06)
[2018-11-03] MEDS: Nitroglycerin 2% Ointment Foilpak UD TOP PRN ×3 (00:10→16:53)
[2018-11-03] MEDS: HYDROmorphone 1 mg/ml ISec IVP PRN ×6 (02:26→22:16)
[2018-11-03] MEDS: Pantoprazole 40 mg EC Tab PO SCH (10:28)
[2018-11-03] MEDS: Sucralfate 1 gm/10 ml Oral Susp UD PO SCH ×4 (10:28→22:16)
[2018-11-03] MEDS: (Novolin R) Insulin Human Regular 100 units/ml vial SC SCH ×4 (10:29→22:18)
[2018-11-03] MEDS: MethylPREDNISolone 40 mg Vial IVP SCH ×2 (10:29→22:16)
[2018-11-03] MEDS: Azithromycin 500 MG in Sodium Chloride 0.9% 250 ML IVPB SCH (10:30)
[2018-11-03] MEDS: Tmp-Smz 400 mg-80 mg SS Tab PO SCH (13:09)
--- NOTE | 2018-11-03 13:19 | CP.PCM.PN ---
Subjective - Date & Time of Evaluation Date of Evaluation: 11/03/18 Time of Evaluation: 13:19 - Subjective Subjective: Pulmonary follow up, Covering Dr Atwood The Patient was seen and examined at the bedside, Medical records reviewed, and management issues were discussed and formulated with the house staff. Events reviewed Objective - Vital Signs/Intake and Output Vital Signs (last 24 hours): Temp Pulse Resp BP Pulse Ox 98.0 F 80 20 204/111 H 100 11/03/18 07:30 11/03/18 10:00 11/03/18 07:30 11/03/18 07:30 11/03/18 07:30 Intake and Output: 11/03/18 11/03/18 06:59 18:59 Intake Total 240 Balance 240 - Medications Medications: Current Medications Amlodipine Besylate (Norvasc) 5 mg PO Q24H [facility] Last Admin: 11/03/18 07:45 Dose: 5 mg Aspirin (Ecotrin) 81 mg PO DAILY [facility] Last Admin: 11/03/18 10:28 Dose: 81 mg Calcium Acetate (Phoslo) 667 mg PO TID [facility] Last Admin: 11/03/18 13:07 Dose: 667 mg Carvedilol (Coreg) 3.125 mg PO Q12H [facility] Last Admin: 11/03/18 06:30 Dose: 3.125 mg Clonidine HCl (Catapres) 0.3 mg PO Q12H [facility] Last Admin: 11/03/18 07:45 Dose: 0.3 mg Dextrose (Dextrose 50% Inj) 0 ml IV STAT PRN; Protocol PRN Reason: Hypoglycemia Protocol Dextrose (Glutose 15) 0 gm PO ONCE PRN; Protocol PRN Reason: Hypoglycemia Protocol Diphenhydramine HCl (Benadryl) 50 mg IVP ONCE PRN PRN Reason: itchiness Last Admin: 10/31/18 14:56 Dose: 50 mg Diphenhydramine HCl (Benadryl) 25 mg PO Q4H PRN PRN Reason: Itching / Pruritus Last Admin: 11/03/18 10:28 Dose: 25 mg Docusate Sodium (Colace) 100 mg PO TID [facility] Last Admin: 11/03/18 13:07 Dose: 100 mg Gabapentin (Neurontin) 100 mg PO BID [facility] Last Admin: 11/03/18 10:28 Dose: 100 mg Glucagon (Glucagen Diagnostic Kit) 0 mg IM STAT PRN; Protocol PRN Reason: Hypoglycemia Protocol Heparin Sodium (Porcine) (Heparin) 5,000 units SC Q12 [facility] Last Admin: 11/03/18 09:24 Dose: Not Given Hydromorphone HCl (Dilaudid) 1 mg IVP Q4 PRN PRN Reason: FOR SEVERE PAIN 8-10 Last Admin: 11/03/18 10:29 Dose: 1 mg Azithromycin 500 mg/ Sodium (Chloride) 250 mls @ 250 mls/hr IVPB DAILY [facility]; Protocol Last Admin: 11/03/18 10:30 Dose: 250 mls/hr Insulin Glargine (Lantus) 25 unit SC HS [facility] Last Admin: 11/02/18 22:06 Dose: 25 units Insulin Human Regular (Novolin R) 0 unit SC ACHS [facility]; Protocol Last Admin: 11/03/18 13:07 Dose: 8 unit Methylprednisolone (Solu-Medrol) 20 mg IVP Q12 [facility] Last Admin: 11/03/18 10:29 Dose: 20 mg Nitroglycerin (Nitro-Bid 2% Oint) 1 ea TOP Q6H PRN PRN Reason: Other Last Admin: 11/03/18 07:45 Dose: 1 ea Ondansetron HCl (Zofran Tab) 8 mg PO Q8 [facility] Last Admin: 11/03/18 05:06 Dose: Not Given Pantoprazole Sodium (Protonix Ec Tab) 40 mg PO DAILY [facility] Last Admin: 11/03/18 10:28 Dose: 40 mg Pneumococcal Polyvalent Vaccine (Pneumovax 23 Vaccine) 0.5 ml IM .ONCE ONE Stop: 11/04/18 10:01 Sucralfate (Carafate Oral Susp) 1 gm PO QID [facility] Last Admin: 11/03/18 13:07 Dose: 1 gm Trimethoprim/Sulfamethoxazole (Bactrim Ss Tab) 1 tab PO Q24H [facility]; Protocol Last Admin: 11/03/18 13:09 Dose: Not Given - Labs Labs: 10/31/18 15:04 11/02/18 14:58 PT 12.4 SECONDS (9.7-12.2) H 10/30/18 20:37 INR 1.1 10/30/18 20:37 APTT 81 SECONDS (21-34) H 10/30/18 20:37
--- NOTE | 2018-11-03 15:39 | CP.PCM.PN ---
Subjective - Date & Time of Evaluation Date of Evaluation: 11/03/18 - Subjective Subjective: No shortness of breath although patient complains of pain in the stomach Complaints of rashes no bleeding form av shunt site Objective - Vital Signs/Intake and Output Vital Signs (last 24 hours): Temp Pulse Resp BP Pulse Ox 98.0 F 80 20 204/111 H 100 11/03/18 07:30 11/03/18 10:00 11/03/18 07:30 11/03/18 07:30 11/03/18 07:30 Intake and Output: 11/03/18 11/03/18 06:59 18:59 Intake Total 240 Balance 240 - Medications Medications: Current Medications Amlodipine Besylate (Norvasc) 5 mg PO Q24H [facility] Last Admin: 11/03/18 07:45 Dose: 5 mg Aspirin (Ecotrin) 81 mg PO DAILY [facility] Last Admin: 11/03/18 10:28 Dose: 81 mg Calcium Acetate (Phoslo) 667 mg PO TID [facility] Last Admin: 11/03/18 13:07 Dose: 667 mg Carvedilol (Coreg) 3.125 mg PO Q12H [facility] Last Admin: 11/03/18 06:30 Dose: 3.125 mg Clonidine HCl (Catapres) 0.3 mg PO Q12H [facility] Last Admin: 11/03/18 07:45 Dose: 0.3 mg Dextrose (Dextrose 50% Inj) 0 ml IV STAT PRN; Protocol PRN Reason: Hypoglycemia Protocol Dextrose (Glutose 15) 0 gm PO ONCE PRN; Protocol PRN Reason: Hypoglycemia Protocol Diphenhydramine HCl (Benadryl) 50 mg IVP ONCE PRN PRN Reason: itchiness Last Admin: 10/31/18 14:56 Dose: 50 mg Diphenhydramine HCl (Benadryl) 25 mg PO Q4H PRN PRN Reason: Itching / Pruritus Last Admin: 11/03/18 14:32 Dose: 25 mg Docusate Sodium (Colace) 100 mg PO TID [facility] Last Admin: 11/03/18 13:07 Dose: 100 mg Gabapentin (Neurontin) 100 mg PO BID [facility] Last Admin: 11/03/18 10:28 Dose: 100 mg Glucagon (Glucagen Diagnostic Kit) 0 mg IM STAT PRN; Protocol PRN Reason: Hypoglycemia Protocol Heparin Sodium (Porcine) (Heparin) 5,000 units SC Q12 [facility] Last Admin: 11/03/18 09:24 Dose: Not Given Hydromorphone HCl (Dilaudid) 1 mg IVP Q4 PRN PRN Reason: FOR SEVERE PAIN 8-10 Last Admin: 11/03/18 14:32 Dose: 1 mg Azithromycin 500 mg/ Sodium (Chloride) 250 mls @ 250 mls/hr IVPB DAILY [facility]; Protocol Last Admin: 11/03/18 10:30 Dose: 250 mls/hr Insulin Glargine (Lantus) 25 unit SC HS [facility] Last Admin: 11/02/18 22:06 Dose: 25 units Insulin Human Regular (Novolin R) 0 unit SC ACHS [facility]; Protocol Last Admin: 11/03/18 13:07 Dose: 8 unit Methylprednisolone (Solu-Medrol) 20 mg IVP Q12 [facility] Last Admin: 11/03/18 10:29 Dose: 20 mg Nitroglycerin (Nitro-Bid 2% Oint) 1 ea TOP Q6H PRN PRN Reason: Other Last Admin: 11/03/18 07:45 Dose: 1 ea Ondansetron HCl (Zofran Tab) 8 mg PO Q8 [facility] Last Admin: 11/03/18 14:10 Dose: Not Given Pantoprazole Sodium (Protonix Ec Tab) 40 mg PO DAILY [facility] Last Admin: 11/03/18 10:28 Dose: 40 mg Pneumococcal Polyvalent Vaccine (Pneumovax 23 Vaccine) 0.5 ml IM .ONCE ONE Stop: 11/04/18 10:01 Sucralfate (Carafate Oral Susp) 1 gm PO QID [facility] Last Admin: 11/03/18 13:07 Dose: 1 gm Trimethoprim/Sulfamethoxazole (Bactrim Ss Tab) 1 tab PO Q24H [facility]; Protocol Last Admin: 11/03/18 13:09 Dose: Not Given - Labs Labs: 10/31/18 15:04 11/02/18 14:58 PT 12.4 SECONDS (9.7-12.2) H 10/30/18 20:37 INR 1.1 10/30/18 20:37 APTT 81 SECONDS (21-34) H 10/30/18 20:37 - Constitutional Appears: Well - Head Exam Head Exam: ATRAUMATIC, NORMAL INSPECTION, NORMOCEPHALIC - Eye Exam Eye Exam: EOMI, Normal appearance, PERRL Pupil Exam: NORMAL ACCOMODATION, PERRL - ENT Exam ENT Exam: Mucous Membranes Moist, Normal Exam - Neck Exam Neck Exam: Full ROM, Normal Inspection. absent: Lymphadenopathy - Respiratory Exam Respiratory Exam: Decreased Breath Sounds - Cardiovascular Exam Cardiovascular Exam: REGULAR RHYTHM, +S1, +S2 - GI/Abdominal Exam GI & Abdominal Exam: Soft, Diminished Bowel Sounds - Rectal Exam Rectal Exam: Deferred Assessment and Plan (1) Hypoxemia Status: Acute (2) Abscess of labia majora Status: Acute (3) Accelerated essential hypertension Status: Acute (4) Acute hyperkalemia Status: Acute (5) Adjustment disorder with anxiety Status: Acute (6) Chest pain Status: Acute (7) Chronic congestive heart failure Status: Acute (8) Chronic intractable pain Status: Acute (9) Chronic pain Status: Acute (10) Congestive heart failure Status: Acute (11) DM w/o complication type I Status: Acute (12) Diabetic gastroparesis Status: Acute (13) Dyspnea Status: Acute (14) ESRD (end stage renal disease) on dialysis Status: Acute (15) Gastric pain Status: Acute (16) Hemorrhage of arteriovenous fistula Status: Acute (17) Hypertension, malignant Status: Acute - Assessment and Plan (Free Text) Plan: Continue amlodipine Continue aspirin PhosLo Coreg Clonidine Monitor the vital signs The blood pressure is 198/99 Patient is on multiple blood pressure medications Advised to reviewed by Dr. Suarez who is the candy roller Discussed with the patient's Hydromorphone Aspirin He [place] Insulin Gabapentin Nitroglycerin Amlodipine We will increase amlodipine to 10 mg Methyl prednisone decreased to 20 mg IV push every 12 Azithromycin Zofran
--- NOTE | 2018-11-03 20:27 | CARD ---
APPROVED REPORT Date of service: 10/31/2018 EKG Measurement Heart [id number] MD [id number] <Conclusion> Normal sinus rhythm Normal ECG
[2018-11-03] MEDS: (Lantus) Insulin Glargine, Recombinant SC SCH (22:17)
[2018-11-04] MEDS: Nitroglycerin 2% Ointment Foilpak UD TOP PRN ×2 (00:50→06:11)
[2018-11-04] MEDS: HYDROmorphone 1 mg/ml ISec IVP PRN ×5 (02:13→19:24)
[2018-11-04] MEDS: (Novolin R) Insulin Human Regular 100 units/ml vial SC SCH ×3 (08:02→19:24)
[2018-11-04] MEDS ORDERED: Pneumococcal 23-Valent Vaccine IM ONE (10:00)
[2018-11-04] MEDS: Sucralfate 1 gm/10 ml Oral Susp UD PO SCH ×3 (10:36→19:24)
[2018-11-04] MEDS: Pantoprazole 40 mg EC Tab PO SCH (10:36)
[2018-11-04] MEDS: Azithromycin 500 MG in Sodium Chloride 0.9% 250 ML IVPB SCH (10:42)
--- NOTE | 2018-11-04 11:33 | CP.PCM.PN ---
Subjective - Date & Time of Evaluation Date of Evaluation: 11/04/18 - Subjective Subjective: No nausea no vomiting no shortness of breath no fever no chest Objective - Vital Signs/Intake and Output Vital Signs (last 24 hours): Temp Pulse Resp BP Pulse Ox 98.1 F 74 20 211/106 H 100 11/04/18 08:48 11/04/18 08:48 11/04/18 08:48 11/04/18 08:48 11/04/18 08:48 - Medications Medications: Current Medications Albuterol/Ipratropium (Duoneb 3 Mg/0.5 Mg (3 Ml) Ud) 3 ml INH RQ6 [facility] Amlodipine Besylate (Norvasc) 5 mg PO Q24H [facility] Last Admin: 11/04/18 08:05 Dose: 5 mg Aspirin (Ecotrin) 81 mg PO DAILY [facility] Last Admin: 11/04/18 10:36 Dose: 81 mg Calcium Acetate (Phoslo) 667 mg PO TID [facility] Last Admin: 11/04/18 10:36 Dose: 667 mg Carvedilol (Coreg) 3.125 mg PO Q12H [facility] Last Admin: 11/04/18 06:34 Dose: 3.125 mg Clonidine HCl (Catapres) 0.3 mg PO Q12H [facility] Last Admin: 11/04/18 08:02 Dose: 0.3 mg Dextrose (Dextrose 50% Inj) 0 ml IV STAT PRN; Protocol PRN Reason: Hypoglycemia Protocol Dextrose (Glutose 15) 0 gm PO ONCE PRN; Protocol PRN Reason: Hypoglycemia Protocol Diphenhydramine HCl (Benadryl) 50 mg IVP ONCE PRN PRN Reason: itchiness Last Admin: 10/31/18 14:56 Dose: 50 mg Diphenhydramine HCl (Benadryl) 25 mg PO Q4H PRN PRN Reason: Itching / Pruritus Last Admin: 11/04/18 10:35 Dose: 25 mg Docusate Sodium (Colace) 100 mg PO TID [facility] Last Admin: 11/04/18 10:35 Dose: 100 mg Gabapentin (Neurontin) 100 mg PO BID [facility] Last Admin: 11/04/18 10:36 Dose: 100 mg Glucagon (Glucagen Diagnostic Kit) 0 mg IM STAT PRN; Protocol PRN Reason: Hypoglycemia Protocol Heparin Sodium (Porcine) (Heparin) 5,000 units SC Q12 [facility] Last Admin: 11/04/18 10:40 Dose: Not Given Hydromorphone HCl (Dilaudid) 1 mg IVP Q4 PRN PRN Reason: FOR SEVERE PAIN 8-10 Last Admin: 11/04/18 10:36 Dose: 1 mg Azithromycin 500 mg/ Sodium (Chloride) 250 mls @ 250 mls/hr IVPB DAILY [facility]; Protocol Last Admin: 11/04/18 10:42 Dose: Not Given Insulin Glargine (Lantus) 25 unit SC HS [facility] Last Admin: 11/03/18 22:17 Dose: 25 units Insulin Human Regular (Novolin R) 0 unit SC ACHS [facility]; Protocol Last Admin: 11/04/18 08:02 Dose: 12 unit Nitroglycerin (Nitro-Bid 2% Oint) 1 ea TOP Q6H PRN PRN Reason: Other Last Admin: 11/04/18 06:11 Dose: 1 ea Ondansetron HCl (Zofran Tab) 8 mg PO Q8 [facility] Last Admin: 11/04/18 08:14 Dose: Not Given Pantoprazole Sodium (Protonix Ec Tab) 40 mg PO DAILY [facility] Last Admin: 11/04/18 10:36 Dose: 40 mg Prednisone (Prednisone Tab) 10 mg PO DAILY [facility] Stop: 11/07/18 10:00 Sucralfate (Carafate Oral Susp) 1 gm PO QID [facility] Last Admin: 11/04/18 10:36 Dose: 1 gm Trimethoprim/Sulfamethoxazole (Bactrim Ss Tab) 1 tab PO Q24H [facility]; Protocol Last Admin: 11/03/18 13:09 Dose: Not Given - Labs Labs: 10/31/18 15:04 11/02/18 14:58 PT 12.4 SECONDS (9.7-12.2) H 10/30/18 20:37 INR 1.1 10/30/18 20:37 APTT 81 SECONDS (21-34) H 10/30/18 20:37 Assessment and Plan (1) Hypoxemia Status: Acute (2) Abscess of labia majora Status: Acute (3) Accelerated essential hypertension Status: Acute (4) Acute hyperkalemia Status: Acute (5) Adjustment disorder with anxiety Status: Acute (6) Chest pain Status: Acute (7) Chronic congestive heart failure Status: Acute (8) Chronic intractable pain Status: Acute (9) Chronic pain Status: Acute (10) Congestive heart failure Status: Acute (11) DM w/o complication type I Status: Acute (12) Diabetic gastroparesis Status: Acute (13) Dyspnea Status: Acute (14) ESRD (end stage renal disease) on dialysis Status: Acute (15) Gastric pain Status: Acute (16) Hemorrhage of arteriovenous fistula Status: Acute (17) Hypertension, malignant Status: Acute - Assessment and Plan (Free Text) Plan: Amlodipine aspirin Carvedilol Clonidine Dextrose benadrylk calcium acetate Call is Neurotology Glucagon Heparin sodium Hydromorphone HCl Azithromycin 500 mg Lantus Solu-Medrol Nitrol ointment 2% Zofran tablet Protonix EC tablet Carafate Bactrim SS Lantus Novolin r Medicines reviewed labs have been reviewed vital signs have been reviewed Patient was seen and examined
[2018-11-04] MEDS: Tmp-Smz 400 mg-80 mg SS Tab PO SCH (14:11)
[2018-11-04] MEDS: Albuterol-Ipratrop 3 mg / 0.5 (3 ml) UD INH SCH ×2 (14:33→19:33)
[2018-11-04] MEDS ORDERED: DiphenhydrAMINE 50 mg/ml Inj IVP PRN ×2 (15:26→16:51)
--- NOTE | 2018-11-04 16:32 | CP.PCM.PN ---
Subjective - Date & Time of Evaluation Date of Evaluation: 11/04/18 Time of Evaluation: 11:00 - Subjective Subjective: alert and orientedx3, no acute pain or distress. Objective - Vital Signs/Intake and Output Vital Signs (last 24 hours): Temp Pulse Resp BP Pulse Ox 98.1 F 74 20 178/92 H 100 11/04/18 08:48 11/04/18 08:48 11/04/18 08:48 11/04/18 13:32 11/04/18 08:48 - Medications Medications: Current Medications Albuterol/Ipratropium (Duoneb 3 Mg/0.5 Mg (3 Ml) Ud) 3 ml INH RQ6 [facility] Amlodipine Besylate (Norvasc) 5 mg PO Q24H [facility] Last Admin: 11/04/18 08:05 Dose: 5 mg Aspirin (Ecotrin) 81 mg PO DAILY [facility] Last Admin: 11/04/18 10:36 Dose: 81 mg Calcium Acetate (Phoslo) 667 mg PO TID [facility] Last Admin: 11/04/18 13:29 Dose: 667 mg Carvedilol (Coreg) 3.125 mg PO Q12H [facility] Last Admin: 11/04/18 06:34 Dose: 3.125 mg Clonidine HCl (Catapres) 0.3 mg PO Q12H [facility] Last Admin: 11/04/18 08:02 Dose: 0.3 mg Dextrose (Dextrose 50% Inj) 0 ml IV STAT PRN; Protocol PRN Reason: Hypoglycemia Protocol Dextrose (Glutose 15) 0 gm PO ONCE PRN; Protocol PRN Reason: Hypoglycemia Protocol Diphenhydramine HCl (Benadryl) 50 mg IVP ONCE PRN PRN Reason: itchiness Last Admin: 10/31/18 14:56 Dose: 50 mg Diphenhydramine HCl (Benadryl) 25 mg PO Q4H PRN PRN Reason: Itching / Pruritus Last Admin: 11/04/18 14:35 Dose: 25 mg Diphenhydramine HCl (Benadryl) 50 mg IVP MWF PRN PRN Reason: itchiness Last Admin: 11/04/18 15:35 Dose: 50 mg Docusate Sodium (Colace) 100 mg PO TID [facility] Last Admin: 11/04/18 13:30 Dose: 100 mg Gabapentin (Neurontin) 100 mg PO BID [facility] Last Admin: 11/04/18 10:36 Dose: 100 mg Glucagon (Glucagen Diagnostic Kit) 0 mg IM STAT PRN; Protocol PRN Reason: Hypoglycemia Protocol Heparin Sodium (Porcine) (Heparin) 5,000 units SC Q12 [facility] Last Admin: 11/04/18 10:40 Dose: Not Given Hydromorphone HCl (Dilaudid) 1 mg IVP Q4 PRN PRN Reason: FOR SEVERE PAIN 8-10 Last Admin: 11/04/18 14:35 Dose: 1 mg Azithromycin 500 mg/ Sodium (Chloride) 250 mls @ 250 mls/hr IVPB DAILY [facility]; Protocol Last Admin: 11/04/18 10:42 Dose: Not Given Insulin Glargine (Lantus) 25 unit SC HS [facility] Last Admin: 11/03/18 22:17 Dose: 25 units Insulin Human Regular (Novolin R) 0 unit SC ACHS [facility]; Protocol Last Admin: 11/04/18 13:29 Dose: 6 unit Nitroglycerin (Nitro-Bid 2% Oint) 1 ea TOP Q6H PRN PRN Reason: Other Last Admin: 11/04/18 06:11 Dose: 1 ea Ondansetron HCl (Zofran Tab) 8 mg PO Q8 [facility] Last Admin: 11/04/18 14:12 Dose: Not Given Pantoprazole Sodium (Protonix Ec Tab) 40 mg PO DAILY [facility] Last Admin: 11/04/18 10:36 Dose: 40 mg Prednisone (Prednisone Tab) 10 mg PO DAILY [facility] Stop: 11/07/18 10:00 Sucralfate (Carafate Oral Susp) 1 gm PO QID [facility] Last Admin: 11/04/18 13:30 Dose: 1 gm Trimethoprim/Sulfamethoxazole (Bactrim Ss Tab) 1 tab PO Q24H [facility]; Protocol Last Admin: 11/04/18 14:11 Dose: Not Given - Labs Labs: 10/31/18 15:04 11/02/18 14:58 PT 12.4 SECONDS (9.7-12.2) H 10/30/18 20:37 INR 1.1 10/30/18 20:37 APTT 81 SECONDS (21-34) H 10/30/18 20:37 Assessment and Plan - Assessment and Plan (Free Text) Assessment: patient seen and examined. Alert and orientedx3, denies sob or chest pains or distress. Discussed with DR Edilia Sexton, plan to discharge home today after HD.
--- NOTE | 2018-11-04 16:33 | PCM.HF ---
Heart Failure Core Measure - Heart Failure Ejection Fraction: 40 % or Greater (EF 52%) BINU Inhibitor Prescribed: No Contraindication/Reason for not providing: ESRD Beta-Allen Prescribed: Carvedilol Angiotensin II Receptor Allen Prescribed: No Contraindication/Reason for not providing: ESRD AnticoagulationTherapy for Atrial Fibrillation/Atrialflutter: No Contraindication/Reason for not providing: no afib Aldosterone Antagonist Prescribed: No Contraindication/Reason for not providing: renal dysfunction Hydralazine Nitrate Prescribed: No Contraindication/Reason for not providing: EF >40% Implantable Cardioverter Defibrillator Therapy: No Contraindication/Reason for not providing: EF >40% Cardiac Resynchronization Therapy Prescribed: No Contraindication/Reason for not providing: not indicated - Follow up Will be discharged to: Home Follow Up Date (must be within 7 days from discharge): 11/11/18 Follow Up Time: 10:00
[2018-11-04] MEDS ORDERED: DiphenhydrAMINE 50 mg/ml Inj IVP STA (16:48)
--- NOTE | 2018-11-04 17:32 | CP.PCM.PN ---
Subjective - Date & Time of Evaluation Date of Evaluation: 11/04/18 Time of Evaluation: 17:32 - Subjective Subjective: afebrile, no SOB NO CHEST PAIN. AMBULATING TO THE BATHROOM FOR HD TODAY 11/04/18 Objective - Vital Signs/Intake and Output Vital Signs (last 24 hours): Temp Pulse Resp BP Pulse Ox 97.7 F 78 18 195/96 H 100 11/04/18 15:15 11/04/18 15:15 11/04/18 15:15 11/04/18 15:30 11/04/18 15:15 - Medications Medications: Current Medications Albuterol/Ipratropium (Duoneb 3 Mg/0.5 Mg (3 Ml) Ud) 3 ml INH RQ6 [facility] Amlodipine Besylate (Norvasc) 5 mg PO Q24H [facility] Last Admin: 11/04/18 08:05 Dose: 5 mg Aspirin (Ecotrin) 81 mg PO DAILY [facility] Last Admin: 11/04/18 10:36 Dose: 81 mg Calcium Acetate (Phoslo) 667 mg PO TID [facility] Last Admin: 11/04/18 13:29 Dose: 667 mg Carvedilol (Coreg) 3.125 mg PO Q12H [facility] Last Admin: 11/04/18 06:34 Dose: 3.125 mg Clonidine HCl (Catapres) 0.3 mg PO Q12H [facility] Last Admin: 11/04/18 08:02 Dose: 0.3 mg Dextrose (Dextrose 50% Inj) 0 ml IV STAT PRN; Protocol PRN Reason: Hypoglycemia Protocol Dextrose (Glutose 15) 0 gm PO ONCE PRN; Protocol PRN Reason: Hypoglycemia Protocol Diphenhydramine HCl (Benadryl) 50 mg IVP ONCE PRN PRN Reason: itchiness Last Admin: 10/31/18 14:56 Dose: 50 mg Diphenhydramine HCl (Benadryl) 25 mg PO Q4H PRN PRN Reason: Itching / Pruritus Last Admin: 11/04/18 14:35 Dose: 25 mg Diphenhydramine HCl (Benadryl) 50 mg IVP MWF PRN PRN Reason: itchiness Docusate Sodium (Colace) 100 mg PO TID [facility] Last Admin: 11/04/18 13:30 Dose: 100 mg Gabapentin (Neurontin) 100 mg PO BID [facility] Last Admin: 11/04/18 10:36 Dose: 100 mg Glucagon (Glucagen Diagnostic Kit) 0 mg IM STAT PRN; Protocol PRN Reason: Hypoglycemia Protocol Heparin Sodium (Porcine) (Heparin) 5,000 units SC Q12 [facility] Last Admin: 11/04/18 10:40 Dose: Not Given Hydromorphone HCl (Dilaudid) 1 mg IVP Q4 PRN PRN Reason: FOR SEVERE PAIN 8-10 Last Admin: 11/04/18 14:35 Dose: 1 mg Azithromycin 500 mg/ Sodium (Chloride) 250 mls @ 250 mls/hr IVPB DAILY [facility]; Protocol Last Admin: 11/04/18 10:42 Dose: Not Given Insulin Glargine (Lantus) 25 unit SC HS [facility] Last Admin: 11/03/18 22:17 Dose: 25 units Insulin Human Regular (Novolin R) 0 unit SC ACHS [facility]; Protocol Last Admin: 11/04/18 13:29 Dose: 6 unit Nitroglycerin (Nitro-Bid 2% Oint) 1 ea TOP Q6H PRN PRN Reason: Other Last Admin: 11/04/18 06:11 Dose: 1 ea Ondansetron HCl (Zofran Tab) 8 mg PO Q8 [facility] Last Admin: 11/04/18 14:12 Dose: Not Given Pantoprazole Sodium (Protonix Ec Tab) 40 mg PO DAILY [facility] Last Admin: 11/04/18 10:36 Dose: 40 mg Prednisone (Prednisone Tab) 10 mg PO DAILY [facility] Stop: 11/07/18 10:00 Sucralfate (Carafate Oral Susp) 1 gm PO QID [facility] Last Admin: 11/04/18 13:30 Dose: 1 gm Trimethoprim/Sulfamethoxazole (Bactrim Ss Tab) 1 tab PO Q24H [facility]; Protocol Last Admin: 11/04/18 14:11 Dose: Not Given - Labs Labs: 10/31/18 15:04 11/02/18 14:58 PT 12.4 SECONDS (9.7-12.2) H 10/30/18 20:37 INR 1.1 10/30/18 20:37 APTT 81 SECONDS (21-34) H 10/30/18 20:37 - Constitutional Appears: No Acute Distress - Head Exam Head Exam: NORMAL INSPECTION - Eye Exam Eye Exam: EOMI, PERRL - ENT Exam ENT Exam: Normal Oropharynx - Neck Exam Neck Exam: Normal Inspection - Respiratory Exam Respiratory Exam: Clear to Ausculation Bilateral, NORMAL BREATHING PATTERN - Cardiovascular Exam Cardiovascular Exam: REGULAR RHYTHM, +S1, +S2 - GI/Abdominal Exam GI & Abdominal Exam: Soft, Normal Bowel Sounds - Extremities Exam Extremities Exam: Normal Capillary Refill. absent: Calf Tenderness, Pedal Edema - Neurological Exam Neurological Exam: Alert, Awake, CN II-XII Intact, Normal Gait, Oriented x3, Reflexes Normal - Psychiatric Exam Psychiatric exam: Normal Mood - Skin Skin Exam: Normal Color, Warm Assessment and Plan (1) Chest pain Status: Acute (2) Dyspnea Status: Acute (3) Fluid overload Status: Acute (4) ESRD (end stage renal disease) on dialysis Status: Acute (5) Diabetes Status: Chronic - Assessment and Plan (Free Text) Plan: stable. probable fluid overload / CHF. no pneumonia. DC ABX . PER CONSULTANTS WILL SIGN OFF .
--- NOTE | 2018-11-04 19:40 | CP.PCM.PN ---
Subjective - Date & Time of Evaluation Date of Evaluation: 11/04/18 - Subjective Subjective: patient was seen and examined no chest pain no shortness of breath patient is alert Objective - Vital Signs/Intake and Output Vital Signs (last 24 hours): Temp Pulse Resp BP Pulse Ox 97.7 F 78 18 159/92 H 100 11/04/18 15:15 11/04/18 15:15 11/04/18 15:15 11/04/18 18:15 11/04/18 15:15 - Medications Medications: Current Medications Albuterol/Ipratropium (Duoneb 3 Mg/0.5 Mg (3 Ml) Ud) 3 ml INH RQ6 [facility] Last Admin: 11/04/18 19:33 Dose: Not Given Amlodipine Besylate (Norvasc) 5 mg PO Q24H [facility] Last Admin: 11/04/18 08:05 Dose: 5 mg Aspirin (Ecotrin) 81 mg PO DAILY [facility] Last Admin: 11/04/18 10:36 Dose: 81 mg Calcium Acetate (Phoslo) 667 mg PO TID [facility] Last Admin: 11/04/18 19:23 Dose: 667 mg Carvedilol (Coreg) 3.125 mg PO Q12H [facility] Last Admin: 11/04/18 19:24 Dose: 3.125 mg Clonidine HCl (Catapres) 0.3 mg PO Q12H [facility] Last Admin: 11/04/18 19:23 Dose: 0.3 mg Dextrose (Dextrose 50% Inj) 0 ml IV STAT PRN; Protocol PRN Reason: Hypoglycemia Protocol Dextrose (Glutose 15) 0 gm PO ONCE PRN; Protocol PRN Reason: Hypoglycemia Protocol Diphenhydramine HCl (Benadryl) 50 mg IVP ONCE PRN PRN Reason: itchiness Last Admin: 10/31/18 14:56 Dose: 50 mg Diphenhydramine HCl (Benadryl) 25 mg PO Q4H PRN PRN Reason: Itching / Pruritus Last Admin: 11/04/18 19:23 Dose: 25 mg Diphenhydramine HCl (Benadryl) 50 mg IVP MWF PRN PRN Reason: itchiness Docusate Sodium (Colace) 100 mg PO TID [facility] Last Admin: 11/04/18 19:24 Dose: 100 mg Gabapentin (Neurontin) 100 mg PO BID [facility] Last Admin: 11/04/18 19:23 Dose: 100 mg Glucagon (Glucagen Diagnostic Kit) 0 mg IM STAT PRN; Protocol PRN Reason: Hypoglycemia Protocol Heparin Sodium (Porcine) (Heparin) 5,000 units SC Q12 [facility] Last Admin: 11/04/18 10:40 Dose: Not Given Hydromorphone HCl (Dilaudid) 1 mg IVP Q4 PRN PRN Reason: FOR SEVERE PAIN 8-10 Last Admin: 11/04/18 19:24 Dose: 1 mg Azithromycin 500 mg/ Sodium (Chloride) 250 mls @ 250 mls/hr IVPB DAILY [facility]; Protocol Last Admin: 11/04/18 10:42 Dose: Not Given Insulin Glargine (Lantus) 25 unit SC HS [facility] Last Admin: 11/03/18 22:17 Dose: 25 units Insulin Human Regular (Novolin R) 0 unit SC ACHS [facility]; Protocol Last Admin: 11/04/18 19:24 Dose: 2 unit Nitroglycerin (Nitro-Bid 2% Oint) 1 ea TOP Q6H PRN PRN Reason: Other Last Admin: 11/04/18 06:11 Dose: 1 ea Ondansetron HCl (Zofran Tab) 8 mg PO Q8 [facility] Last Admin: 11/04/18 14:12 Dose: Not Given Pantoprazole Sodium (Protonix Ec Tab) 40 mg PO DAILY [facility] Last Admin: 11/04/18 10:36 Dose: 40 mg Prednisone (Prednisone Tab) 10 mg PO DAILY [facility] Stop: 11/07/18 10:00 Sucralfate (Carafate Oral Susp) 1 gm PO QID [facility] Last Admin: 11/04/18 19:24 Dose: 1 gm Trimethoprim/Sulfamethoxazole (Bactrim Ss Tab) 1 tab PO Q24H [facility]; Protocol Last Admin: 11/04/18 14:11 Dose: Not Given - Labs Labs: 10/31/18 15:04 11/02/18 14:58 PT 12.4 SECONDS (9.7-12.2) H 10/30/18 20:37 INR 1.1 10/30/18 20:37 APTT 81 SECONDS (21-34) H 10/30/18 20:37 - Constitutional Appears: Well - Head Exam Head Exam: ATRAUMATIC, NORMAL INSPECTION, NORMOCEPHALIC - Eye Exam Eye Exam: EOMI, Normal appearance, PERRL Pupil Exam: NORMAL ACCOMODATION, PERRL - ENT Exam ENT Exam: Mucous Membranes Moist, Normal Exam - Neck Exam Neck Exam: Full ROM, Normal Inspection. absent: Lymphadenopathy - Respiratory Exam Respiratory Exam: Decreased Breath Sounds - Cardiovascular Exam Cardiovascular Exam: REGULAR RHYTHM, +S1, +S2 - GI/Abdominal Exam GI & Abdominal Exam: Soft, Diminished Bowel Sounds - Rectal Exam Rectal Exam: Deferred Assessment and Plan (1) Hypoxemia Status: Acute (2) Abscess of labia majora Status: Acute (3) Accelerated essential hypertension Status: Acute (4) Acute hyperkalemia Status: Acute (5) Adjustment disorder with anxiety Status: Acute (6) Chest pain Status: Acute (7) Chronic congestive heart failure Status: Acute (8) Chronic intractable pain Status: Acute (9) Chronic pain Status: Acute (10) Congestive heart failure Status: Acute (11) DM w/o complication type I Status: Acute (12) Diabetic gastroparesis Status: Acute (13) Dyspnea Status: Acute (14) ESRD (end stage renal disease) on dialysis Status: Acute (15) Gastric pain Status: Acute (16) Hemorrhage of arteriovenous fistula Status: Acute (17) Hypertension, malignant Status: Acute - Assessment and Plan (Free Text) Plan: benadryl clonidine colace carvedilol albuterol aspirin glucagen gabapentin labs and radiology reviewed discussed treatment plan
[2018-11-04 20:02] VITALS: BP 180/91; PULSE 80; RESP 20; TEMP 97.9; O2SAT 98
[2018-11-06 11:02] LABS: % CD4 (T HELPER CELL) 48 Percent (30-61); % CD8 (SUPPRESSOR T CELL) 34 Percent (12-42); ABSOLUTE CD4 CELLS 806 Cells/mcL (490-1740); ABSOLUTE CD8 CELLS 564 Cells/mcL (180-1170); ABSOLUTE LYMPHOCYTES 1676 Cells/mcL (850-3900); HELPER/SUPPRESSOR RATIO 1.43 Ratio (0.86-5.00)
== END 2018-11-04 20:08 | disposition home or self-care (01) | DRG 566 ==
LOC: C.ER 19:37 → C.9E 21:39 → C.5S 22:19
PROVIDERS: ADMIT Internal Medicine Nephrology; ATTEND Internal Medicine Nephrology
PROC: 5A1D70Z Performance of Urinary Filtration, Intermittent, Less than 6 Hours Per Day (ICD-10-PCS; principal; 2018-10-31)
PROC: 5A1D70Z Performance of Urinary Filtration, Intermittent, Less than 6 Hours Per Day (ICD-10-PCS; 2018-11-02)
PROC: 5A1D70Z Performance of Urinary Filtration, Intermittent, Less than 6 Hours Per Day (ICD-10-PCS; 2018-11-04)
DX: E87.79 Other fluid overload (principal); J18.9 Pneumonia, unspecified organism; E10.22 Type 1 diabetes mellitus with diabetic chronic kidney disease; I13.2 Hypertensive heart and chronic kidney disease with heart failure and with stage 5 chronic kidney disease, or end stage renal disease; I50.9 Heart failure, unspecified; J45.901 Unspecified asthma with (acute) exacerbation; N18.6 End stage renal disease; R09.02 Hypoxemia; T82.838A Hemorrhage due to vascular prosthetic devices, implants and grafts, initial encounter; E10.43 Type 1 diabetes mellitus with diabetic autonomic (poly)neuropathy; N76.4 Abscess of vulva; D63.1 Anemia in chronic kidney disease; E87.5 Hyperkalemia; E03.9 Hypothyroidism, unspecified; E78.00 Pure hypercholesterolemia, unspecified; F43.22 Adjustment disorder with anxiety; G47.30 Sleep apnea, unspecified; G89.29 Other chronic pain; H40.9 Unspecified glaucoma; K31.84 Gastroparesis; Z79.4 Long term (current) use of insulin; Z87.01 Personal history of pneumonia (recurrent); Z87.11 Personal history of peptic ulcer disease; Z87.442 Personal history of urinary calculi; Z90.49 Acquired absence of other specified parts of digestive tract; Z95.5 Presence of coronary angioplasty implant and graft; Z99.2 Dependence on renal dialysis; Z91.040 Latex allergy status; Z98.49 Cataract extraction status, unspecified eye

== ENCOUNTER 2018-11-13 20:29 | Emergency (ER) | payer MEDICAID ==
[2018-11-13 20:29] VITALS: BMI 27.3
[2018-11-13 20:42] VITALS: TEMP 98.5
[2018-11-13 21:46] LABS: BASO # 0.1 K/uL (0.0-0.2); BASO % 1.8 % (0.0-2.0); EOS # 0.6 K/uL (0.0-0.7); EOS % 10.4 % (0.0-4.0); HEMOGLOBIN 9.9 g/dL (11.0-16.0); LYMPH # 1.1 K/uL (1.0-4.3); LYMPH % 20.4 % (20.0-40.0); MEAN CELL VOLUME 95.1 fL (81.0-99.0); MEAN CORPUSCULAR HEMOGLOBIN 29.7 pg (27.0-31.0); MEAN CORPUSCULAR HGB CONC 31.2 g/dL (33.0-37.0); MEAN PLATELET VOLUME 8.4 fL (7.2-11.7); MONO # 0.4 K/uL (0.0-0.8); MONO % 6.9 % (0.0-10.0); NEUT # 3.3 K/uL (1.8-7.0); NEUT % 60.5 % (50.0-75.0); NRBC % 0.2 % (0.0-2.0); RBC 3.35 Mil/uL (3.80-5.20); RED CELL DISTRIBUTION WIDTH 16.5 % (11.5-14.5); WHITE BLOOD COUNT 5.5 K/uL (4.8-10.8)
[2018-11-13 22:01] LABS: ALB/GLOB RATIO 1.4 (1.0-2.1); ALBUMIN 3.9 g/dL (3.5-5.0); ALT/SGPT 30 U/L (9-52); AST/SGOT 32 U/L (14-36); BLOOD UREA NITROGEN 32 mg/dL (7-17); CALCIUM 8.6 mg/dl (8.6-10.4); GFR NON-AFRICAN AMERICAN 11
[2018-11-13] MEDS ORDERED: (Novolin R) Insulin Human Regular 100 units/ml vial IV STA (22:06)
[2018-11-13 22:09] LABS: INR 1.1; PROTHROMBIN TIME 11.6 SECONDS (9.7-12.2)
[2018-11-13 22:11] LABS: B-TYPE NATRIURETIC PEPTIDE 31000 pg/mL (0-450)
[2018-11-13] MEDS ORDERED: (Novolin R) Insulin Human Regular 100 units/ml vial ONE (22:21)
[2018-11-13 22:23] VITALS: O2SAT 100
--- NOTE | 2018-11-13 22:23 | C.PDOC ---
History Of Present Illness 32 year old female presents to the ED for evaluation of left-sided chest pain that radiates to her left neck. Patient reports symptoms are similar to when she had osteomyelitis of her left clavicle. Patient states she attended dialysis today (M-W-F), and has maintained good compliance with her medications. She reports she has been feeling weak/tired after full dialysis sessions. She denies fever, chills, shortness of breath. Time Seen by Provider: 11/13/18 21:22 Chief Complaint (Nursing): Shortness Of Breath History Per: Patient History/Exam Limitations: no limitations Onset/Duration Of Symptoms: Hrs Current Symptoms Are (Timing): Still Present Past Medical History Reviewed: Historical Data, Nursing Documentation, Vital Signs Vital Signs: Last Vital Signs Temp 98.5 F 11/13/18 20:36 Pulse 91 H 11/13/18 20:36 Resp 20 11/13/18 21:14 BP 208/103 H 11/13/18 20:36 Pulse Ox 100 11/13/18 21:14 - Medical History PMH: Anemia, Anxiety, Asthma, Bronchitis, CHF, Diabetes, Fractures (LEFT FOOT), Gastritis, Gastrointestinal Ulcer (gastroparesis), Gall Bladder Disease, Hepatitis, HTN, Hypercholesterolemia, Hyperthyroidism, Hypothyroidism, Kidney Stones, Pancreatitis, Peripheral Edema, Pneumonia, End Stage Renal Disease, Chronic Kidney Disease, Seizures, Sleep Apnea, Chronic Pain Surgical History: Cholecystectomy, Coronary Stent - [facility] Procedures (10/30/18) ASSISTANCE WITH RESPIRATORY VENTILATION, 24-96 HRS, CPAP (11/27/16) CAUTERY TO STOP EPISTAX (03/22/14) CENTRAL VENOUS CATHETER PLACEMENT WITH GUIDANCE (11/06/14) DIALYSIS ARTERIOVENOSTOM (01/10/14) DILATION OF L INNOM VEIN WITH INTRALUM DEV, PERC APPROACH (09/24/18) DILATION OF LEFT SUBCLAVIAN VEIN, PERCUTANEOUS APPROACH (09/03/17) DRAINAGE OF RIGHT FOOT SKIN, EXTERNAL APPROACH (07/17/16) DRAINAGE OF RIGHT LOWER ARM SKIN, EXTERNAL APPROACH (05/25/16) ESOPHAGOGASTRODUODENOSCOPY [EGD] W/CLOSED BIOPSY (03/03/14) EXCISION OF LEFT TOE PHALANX, OPEN APPROACH (07/12/17) EXCISION OF STOMACH, ENDO, DIAGN (05/09/16) EXTIRPATE MATTER FROM R LOW ARM SUBCU/FASCIA, PERC (05/25/16) EXTRACTION OF RIGHT FOOT SKIN, EXTERNAL APPROACH (05/25/16) EXTRACTION OF TOE NAIL, EXTERNAL APPROACH (07/12/17) FLEXIBLE SIGMOIDOSCOPY (10/26/14) FLUOROSCOPY OF DIALYSIS SHUNT/FISTULA USING L OSM CONTRAST (09/24/18) FLUOROSCOPY OF LEFT SUBCLAVIAN VEIN USING OTHER CONTRAST (09/03/17) FLUOROSCOPY OF R JUGULAR VEIN USING L OSM CONTRAST, GUIDANCE (12/13/15) FLUOROSCOPY OF RIGHT SUBCLAVIAN VEIN, GUIDANCE (08/07/16) HEMODIALYSIS (04/05/15) INDIVIDUAL PSYCHOTHERAPY, SUPPORTIVE (10/12/18) INJECT INSULIN (12/23/12) INJECT/INFUSE ELECTROLYT (12/23/12) INJECT/INFUSE NEC (01/17/15) INSERT INFUSION DEV IN R INT JUGULAR VEIN, PERC (02/23/16) INSERT VAD RESERVOIR IN CHEST SUBCU/FASCIA, OPEN (08/19/17) INSERTION OF INFUSION DEV INTO R BASILIC VEIN, PERC APPROACH (04/18/16) INSERTION OF INFUSION DEV INTO R BRACH VEIN, PERC APPROACH (02/19/17) INSERTION OF INFUSION DEV INTO R SUBCLAV VEIN, PERC APPROACH (08/29/16) INSERTION OF INFUSION DEV INTO SUP VENA CAVA, PERC APPROACH (08/19/17) INSERTION OF INFUSION DEVICE INTO R ATRIUM, PERC APPROACH (12/13/15) INSERTION OF VAD INTO CHEST SUBCU/FASCIA, OPEN APPROACH (12/13/15) MEASURE OF CARDIAC SAMPL & PRESSURE, L HEART, PERC APPROACH (10/09/16) OTHER ENDOSCOPY OF SM INTEST (08/25/14) PACKED CELL TRANSFUSION (10/26/14) PERFORMANCE OF URINARY FILTRATION, MULTIPLE (03/19/17) PERFORMANCE OF URINARY FILTRATION, SINGLE (11/27/16) PLAIN RADIOGRAPHY OF LEFT HEART USING OTHER CONTRAST (10/09/16) PLAIN RADIOGRAPHY OF MULT COR ART USING OTH CONTRAST (10/09/16) PLICATION OF VENA CAVA (03/22/14) POST NASAL PAC FOR EPIST (03/22/14) REMOVAL OF VAD FROM TRUNK SUBCU/FASCIA, OPEN APPROACH (02/23/16) RESECTION OF TOE NAIL, EXTERNAL APPROACH (08/19/17) MELVIN KENNY DIALYSIS SHUNT (03/03/14) THERAPEUTIC ERYTHROCYTAPHERESIS (03/16/15) TRANSFUSE NONAUT RED BLOOD CELLS IN PERIPH VEIN, PERC (02/19/17) ULTRASONOGRAPHY OF RIGHT AND LEFT HEART, TRANSESOPHAGEAL (02/19/17) ULTRASONOGRAPHY OF RIGHT SUBCLAVIAN VEIN, GUIDANCE (08/29/16) ULTRASONOGRAPHY OF RIGHT UPPER EXTREMITY VEINS, GUIDANCE (02/19/17) VACCINATION NEC (10/26/14) VENOUS CATHETERIZATION FOR RENAL DIALYSIS (03/03/14) Family History: States: Unknown Family Hx - Social History Hx Tobacco Use: No Hx Alcohol Use: No Hx Substance Use: No - Immunization History Hx Tetanus Toxoid Vaccination: No Hx Influenza Vaccination: Yes Hx Pneumococcal Vaccination: Yes Review Of Systems Constitutional: Positive for: Weakness. Negative for: Fever, Chills Cardiovascular: Positive for: Chest Pain (left-sided ) Respiratory: Negative for: Shortness of Breath Musculoskeletal: Positive for: Neck Pain Physical Exam - Physical Exam Appears: Non-toxic, No Acute Distress Skin: Normal Color, Warm, Dry Head: Atraumatic, Normacephalic Eye(s): bilateral: Normal Inspection Oral Mucosa: Moist Neck: Normal ROM, No Midline Cervical Tenderness, No Paracervical Tenderness, Supple Chest: Symmetrical, No Deformity, No Tenderness (digitally or positionally reproducible ) Cardiovascular: Rhythm Regular, No Murmur Respiratory: Normal Breath Sounds, No Rales, No Rhonchi, No Wheezing Gastrointestinal/Abdominal: Soft, No Tenderness, No Guarding, No Rebound Extremity: Normal ROM, No Tenderness, Capillary Refill (less than 2 seconds ), No Deformity, No Swelling Neurological/Psych: Oriented x3, Normal Speech, Normal Cognition ED Course And Treatment - Laboratory Results Result Diagrams: 11/13/18 21:39 11/13/18 21:39 Lab Results: Total Bilirubin 0.4 mg/dL (0.2-1.3) 11/13/18 21:39 AST 32 U/L (14-36) 11/13/18 21:39 ALT 30 U/L (9-52) 11/13/18 21:39 Alkaline Phosphatase 143 U/L (38-126) H 11/13/18 21:39 Total Protein 6.7 g/dL (6.3-8.3) 11/13/18 21:39 Albumin 3.9 g/dL (3.5-5.0) 11/13/18 21:39 Globulin 2.8 gm/dL (2.2-3.9) 11/13/18 21:39 Albumin/Globulin Ratio 1.4 (1.0-2.1) 11/13/18 21:39 Lab Interpretation: Abnormal (elev glu, trop neg.) ECG: Interpreted By Me ECG Rhythm: Sinus Rhythm ECG Interpretation: Normal Rate From EC O2 Sat by Pulse Oximetry: 100 (on RA ) Pulse Ox Interpretation: Normal - Radiology CXR: Interpreted by Me CXR Interpretation: Yes: No Acute Disease Progress Note: Bloodwork, urinalysis, CXR, EKG ordered and reviewed. Catapres PO, Novolin IV, and Trandate PO given. Reevaluation Time: 23:22 Reassessment Condition: Improved - Physician Consult Information Outcome Of Conversation: 2300: d/w Dr. Yoly Sexton- PMD- ok to d/c home w opt f/u. Medical Decision Making Medical Decision Making: vague L upper chest/neck discomfort prob musculoskeletal BP poorly controlled s/p HD today ? lethargy s/p SD (typical in most pt's) but no s/s of lethargy on exam ok to d/c home per PMD Disposition Doctor Will See Patient In The: Office Counseled Patient/Family Regarding: Studies Performed, Diagnosis - Disposition Referrals: [facility] [Outside] Kim Sexton MD [Staff Provider] - Disposition: HOME/ ROUTINE Disposition Time: 23:24 Condition: GOOD Additional Instructions: workup normal outpatient follow-up w Dr. Yoly Sexton as opt. Instructions: Chronic Pain Forms: [facility] (Kazakh) - Clinical Impression Clinical Impression: Chronic pain - Scribe Statement The provider has reviewed the documentation as recorded by the Scribe (Zahira Sexton) Provider Attestation: All medical record entries made by the Scribe were at my direction and personally dictated by me. I have reviewed the chart and agree that the record accurately reflects my personal performance of the history, physical exam, medical decision making, and the department course for this patient. I have also personally directed, reviewed, and agree with the discharge instructions and disposition.
[2018-11-13 22:41] VITALS: PULSE 88; RESP 18
[2018-11-13 23:24] VITALS: BP 194/100
--- NOTE | 2018-11-14 10:54 | RAD ---
Chest x-ray single frontal view HISTORY: Shortness of breath. COMPARISON: 10/30/2018 Findings: Right chest wall port with tip extending into the distal SVC. Mild venous congestion. Cardiomegaly. Degenerative changes in the spine. Again identified is retained catheter tubing projecting over the inferior aspect of the right clavicle. Impression: Right chest wall port with tip extending into the distal SVC. Mild venous congestion. Cardiomegaly.
--- NOTE | 2018-11-17 20:03 | CARD ---
APPROVED REPORT Date of service: 11/13/2018 EKG Measurement Heart [id number] <Conclusion> Normal sinus rhythm T wave abnormality, consider lateral ischemia Prolonged QT Abnormal ECG
== END 2018-11-13 23:33 | disposition home or self-care (01) ==
LOC: C.ER 20:29
DX: G89.29 Other chronic pain (principal); E78.00 Pure hypercholesterolemia, unspecified; E03.9 Hypothyroidism, unspecified; I50.9 Heart failure, unspecified; N18.6 End stage renal disease; I12.0 Hypertensive chronic kidney disease with stage 5 chronic kidney disease or end stage renal disease; Z99.2 Dependence on renal dialysis

== ENCOUNTER 2018-11-15 09:28 | Observation (INO) | payer MEDICAID ==
[2018-11-15 09:28] VITALS: BMI 27.3
[2018-11-15] MEDS ORDERED: DiphenhydrAMINE 50 mg/ml Inj IVP STA ×2 (11:49→15:18)
[2018-11-15 12:04] LABS: EOS # 0.8 K/uL (0.0-0.7); HEMOGLOBIN 9.2 g/dL (11.0-16.0); MONO # 0.5 K/uL (0.0-0.8); RED CELL DISTRIBUTION WIDTH 16.2 % (11.5-14.5)
[2018-11-15] MEDS ORDERED: DiphenhydrAMINE 50 mg/ml Inj ONE ×3 (12:07→15:36)
--- NOTE | 2018-11-15 12:07 | RAD ---
Date of service: 11/15/2018 PROCEDURE: CHEST RADIOGRAPH, 1 VIEW HISTORY: SOB COMPARISON: 11/13/2018 FINDINGS: LUNGS: Clear. PLEURA: No pneumothorax or pleural fluid seen. CARDIOVASCULAR: No aortic atherosclerotic calcification present. Normal heart size. Left brachiocephalic venous stent. Right central venous infusion port. No congestive change. OSSEOUS STRUCTURES: No significant abnormalities. VISUALIZED UPPER ABDOMEN: Normal. OTHER FINDINGS: None. IMPRESSION: No active disease.
[2018-11-15 12:13] LABS: BASO # 0.1 K/uL (0.0-0.2); BASO % 1.7 % (0.0-2.0); EOS % 9.8 % (0.0-4.0); LYMPH # 1.1 K/uL (1.0-4.3); LYMPH % 13.3 % (20.0-40.0); MEAN CELL VOLUME 93.4 fL (81.0-99.0); MEAN CORPUSCULAR HEMOGLOBIN 31.1 pg (27.0-31.0); MEAN CORPUSCULAR HGB CONC 33.3 g/dL (33.0-37.0); MEAN PLATELET VOLUME 7.7 fL (7.2-11.7); MONO % 6.5 % (0.0-10.0); NEUT # 5.5 K/uL (1.8-7.0); NEUT % 68.7 % (50.0-75.0); RBC 2.97 Mil/uL (3.80-5.20)
[2018-11-15 12:28] LABS: CK-MB 2.98 ng/mL (0.0-3.38)
[2018-11-15 12:33] LABS: ALB/GLOB RATIO 1.5 (1.0-2.1); ALBUMIN 4.2 g/dL (3.5-5.0); ALT/SGPT 38 U/L (9-52); AST/SGOT 46 U/L (14-36); B-TYPE NATRIURETIC PEPTIDE > 35000 pg/mL (0-450); BLOOD UREA NITROGEN 73 mg/dL (7-17); CALCIUM 9.5 mg/dl (8.6-10.4); GFR NON-AFRICAN AMERICAN 6; LIPASE 112 U/L (23-300)
--- NOTE | 2018-11-15 13:18 | C.PDOC ---
History Of Present Illness 32 year old female presents to ED with complaint of diffuse abdominal pain, nausea, and vomiting that began 30 minutes [employer]. Patient states that the pain is similar to her prior gastroparesis. Patient also complains of left upper chest pain. Patient has a PMHx of osteomyelitis in 2017 and ESRD on HD. Patient's last round of dialysis was on 11/13/18 and was due to go today. Patient denies fever, chills, diaphoresis, and diarrhea. Time Seen by Provider: 11/15/18 11:20 Chief Complaint (Nursing): Abdominal Pain History Per: Patient History/Exam Limitations: no limitations Current Symptoms Are (Timing): Still Present Location Of Pain/Discomfort: Diffuse Radiation Of Pain To:: None Quality Of Discomfort: "Pain" Associated Symptoms: Nausea, Vomiting. denies: Fever, Chills, Diarrhea Exacerbating Factors: None Alleviating Factors: None Past Medical History Reviewed: Historical Data, Nursing Documentation, Vital Signs Vital Signs: Last Vital Signs Temp 98.2 F 11/15/18 09:32 Pulse 108 H 11/15/18 09:32 Resp 20 11/15/18 10:03 BP 195/97 H 11/15/18 12:44 Pulse Ox 99 11/15/18 10:03 - Medical History PMH: Anemia, Anxiety, Asthma, Bronchitis, CHF, Diabetes, Fractures (LEFT FOOT), Gastritis, Gastrointestinal Ulcer (gastroparesis), Gall Bladder Disease, Hepatitis, HTN, Hypercholesterolemia, Hyperthyroidism, Hypothyroidism, Kidney Stones, Pancreatitis, Peripheral Edema, Pneumonia, End Stage Renal Disease, Chronic Kidney Disease, Seizures, Sleep Apnea, Chronic Pain Surgical History: Cholecystectomy, Coronary Stent (x1) - [facility] Procedures (10/30/18) ASSISTANCE WITH RESPIRATORY VENTILATION, 24-96 HRS, CPAP (11/27/16) CAUTERY TO STOP EPISTAX (03/22/14) CENTRAL VENOUS CATHETER PLACEMENT WITH GUIDANCE (11/06/14) DIALYSIS ARTERIOVENOSTOM (01/10/14) DILATION OF L INNOM VEIN WITH INTRALUM DEV, PERC APPROACH (09/24/18) DILATION OF LEFT SUBCLAVIAN VEIN, PERCUTANEOUS APPROACH (09/03/17) DRAINAGE OF RIGHT FOOT SKIN, EXTERNAL APPROACH (07/17/16) DRAINAGE OF RIGHT LOWER ARM SKIN, EXTERNAL APPROACH (05/25/16) ESOPHAGOGASTRODUODENOSCOPY [EGD] W/CLOSED BIOPSY (03/03/14) EXCISION OF LEFT TOE PHALANX, OPEN APPROACH (07/12/17) EXCISION OF STOMACH, ENDO, DIAGN (05/09/16) EXTIRPATE MATTER FROM R LOW ARM SUBCU/FASCIA, PERC (05/25/16) EXTRACTION OF RIGHT FOOT SKIN, EXTERNAL APPROACH (05/25/16) EXTRACTION OF TOE NAIL, EXTERNAL APPROACH (07/12/17) FLEXIBLE SIGMOIDOSCOPY (10/26/14) FLUOROSCOPY OF DIALYSIS SHUNT/FISTULA USING L OSM CONTRAST (09/24/18) FLUOROSCOPY OF LEFT SUBCLAVIAN VEIN USING OTHER CONTRAST (09/03/17) FLUOROSCOPY OF R JUGULAR VEIN USING L OSM CONTRAST, GUIDANCE (12/13/15) FLUOROSCOPY OF RIGHT SUBCLAVIAN VEIN, GUIDANCE (08/07/16) HEMODIALYSIS (04/05/15) INDIVIDUAL PSYCHOTHERAPY, SUPPORTIVE (10/12/18) INJECT INSULIN (12/23/12) INJECT/INFUSE ELECTROLYT (12/23/12) INJECT/INFUSE NEC (01/17/15) INSERT INFUSION DEV IN R INT JUGULAR VEIN, PERC (02/23/16) INSERT VAD RESERVOIR IN CHEST SUBCU/FASCIA, OPEN (08/19/17) INSERTION OF INFUSION DEV INTO R BASILIC VEIN, PERC APPROACH (04/18/16) INSERTION OF INFUSION DEV INTO R BRACH VEIN, PERC APPROACH (02/19/17) INSERTION OF INFUSION DEV INTO R SUBCLAV VEIN, PERC APPROACH (08/29/16) INSERTION OF INFUSION DEV INTO SUP VENA CAVA, PERC APPROACH (08/19/17) INSERTION OF INFUSION DEVICE INTO R ATRIUM, PERC APPROACH (12/13/15) INSERTION OF VAD INTO CHEST SUBCU/FASCIA, OPEN APPROACH (12/13/15) MEASURE OF CARDIAC SAMPL & PRESSURE, L HEART, PERC APPROACH (10/09/16) OTHER ENDOSCOPY OF SM INTEST (08/25/14) PACKED CELL TRANSFUSION (10/26/14) PERFORMANCE OF URINARY FILTRATION, MULTIPLE (03/19/17) PERFORMANCE OF URINARY FILTRATION, SINGLE (11/27/16) PLAIN RADIOGRAPHY OF LEFT HEART USING OTHER CONTRAST (10/09/16) PLAIN RADIOGRAPHY OF MULT COR ART USING OTH CONTRAST (10/09/16) PLICATION OF VENA CAVA (03/22/14) POST NASAL PAC FOR EPIST (03/22/14) REMOVAL OF VAD FROM TRUNK SUBCU/FASCIA, OPEN APPROACH (02/23/16) RESECTION OF TOE NAIL, EXTERNAL APPROACH (08/19/17) MELVIN KENNY DIALYSIS SHUNT (03/03/14) THERAPEUTIC ERYTHROCYTAPHERESIS (10/26/14) TRANSFUSE NONAUT RED BLOOD CELLS IN PERIPH VEIN, PERC (02/19/17) ULTRASONOGRAPHY OF RIGHT AND LEFT HEART, TRANSESOPHAGEAL (02/19/17) ULTRASONOGRAPHY OF RIGHT SUBCLAVIAN VEIN, GUIDANCE (08/29/16) ULTRASONOGRAPHY OF RIGHT UPPER EXTREMITY VEINS, GUIDANCE (02/19/17) VACCINATION NEC (10/26/14) VENOUS CATHETERIZATION FOR RENAL DIALYSIS (03/03/14) Family History: States: Unknown Family Hx - Social History Hx Tobacco Use: No Hx Alcohol Use: No Hx Substance Use: No - Immunization History Hx Tetanus Toxoid Vaccination: No Hx Influenza Vaccination: Yes Hx Pneumococcal Vaccination: Yes Review Of Systems Constitutional: Negative for: Fever, Chills, Weakness Cardiovascular: Positive for: Chest Pain (left upper chest pain) Gastrointestinal: Positive for: Nausea, Vomiting, Abdominal Pain (diffuse). Negative for: Diarrhea Neurological: Negative for: Weakness, Numbness, Dizziness Physical Exam - Physical Exam Appears: Chronically Ill, Other (uncomfortable) Skin: Normal Color, Warm, Dry Head: Atraumatic, Normacephalic Neck: Normal ROM, Supple Chest: Other (Port to the right upper chest, 7 cm scar to the clavicular area of the left upper chest ) Cardiovascular: Rhythm Regular, No Murmur, Other (tachycardic) Respiratory: No Accessory Muscle Use, Rales (at the bases bilaterally), No Rhonchi, No Wheezing Gastrointestinal/Abdominal: No Soft, Tenderness (diffuse tenderness that is grea ter in the epigastric area) Extremity: Swelling (+2 pitting edema), Other (AV fistula to the left arm, palpable thrill) Neurological/Psych: Oriented x3, Normal Speech, Normal Cognition ED Course And Treatment - Laboratory Results Result Diagrams: 11/15/18 11:56 11/15/18 11:56 Lab Results: Troponin I 0.0210 ng/mL (0.00-0.120) 11/15/18 11:56 NT-Pro-B Natriuret Pep > 33047 pg/mL (0-450) H 11/15/18 11:56 Total Bilirubin 0.4 mg/dL (0.2-1.3) 11/15/18 11:56 AST 46 U/L (14-36) H D 11/15/18 11:56 ALT 38 U/L (9-52) 11/15/18 11:56 Alkaline Phosphatase 128 U/L (38-126) H 11/15/18 11:56 Total Protein 7.1 g/dL (6.3-8.3) 11/15/18 11:56 Albumin 4.2 g/dL (3.5-5.0) 11/15/18 11:56 Globulin 2.9 gm/dL (2.2-3.9) 11/15/18 11:56 Albumin/Globulin Ratio 1.5 (1.0-2.1) 11/15/18 11:56 Lipase 112 U/L (23-300) 11/15/18 11:56 O2 Sat by Pulse Oximetry: 99 (in RA) - Other Rad CXR X-Ray: Interpreted by Me, Viewed By Me Interpretation: IMPRESSION: No active disease. - CT Scan/US Chest CT Other Rad Studies (CT/US): Interpreted By Me, Read By Radiologist CT/US Interpretation: IMPRESSION: 1. Mild diffuse alveolar pulmonary edema, interstitial edema and pulmonary venous congestion with moderate cardiomegaly most compatible with mild congestive heart failure. 2. Few scattered peripheral tiny nodules in the right lung, the largest in the superior segment of the right lower lobe measures 5 mm. These are nonspecific but likely post inflammatory in etiology. Clinical follow-up is advised. Progress Note: CXR and EKG ordered for patient. Labs ordered with cardiac enzymes and CBC. Patient given Benadryl IVP, Zofran IVP, and fentanyl IVP. Disposition - Disposition Disposition: HOSPITALIZED - Scribe Statement The provider has reviewed the documentation as recorded by the Scribe (Anna Lorenzo) All medical record entries made by the Scribe were at my direction and personally dictated by me. I have reviewed the chart and agree that the record accurately reflects my personal performance of the history, physical exam, medical decision making, and the department course for this patient. I have also personally directed, reviewed, and agree with the discharge instructions and disposition.
--- NOTE | 2018-11-15 13:26 | CT ---
Date of service: 11/15/2018 PROCEDURE: CT Chest without contrast HISTORY: LEFT UPPER CHEST PAIN, H/O OSTEOMYELITIS COMPARISON: Plain radiographs from 11/15/2018 and 11/13/2018 TECHNIQUE: Contiguous axial images were obtained through the chest without intravenous contrast enhancement. Sagittal and coronal reconstructions were performed. Radiation dose: Total exam DLP = 631.58 mGy-cm. This CT exam was performed using one or more of the following dose reduction techniques: Automated exposure control, adjustment of the mA and/or kV according to patient size, and/or use of iterative reconstruction technique. FINDINGS: LUNGS: The lungs are well inflated. There is mild interlobular septal thickening and patchy ground-glass attenuation in the lungs. There are few scattered tiny peripheral nodules in the right lung, the largest in the superior segment of the right lower lobe measures 5 mm. There is subsegmental atelectasis in both lower lobes. MEDIASTINUM: Unremarkable thoracic aorta. No aneurysm. Moderate cardiomegaly. Main pulmonary artery is enlarged and measures 3.5 cm. There is prominent central vasculature. No lymphadenopathy. No aortic atherosclerotic calcification. PLEURA: No pleural fluid. No pneumothorax. BONES: No fracture. No destructive lesion. UPPER ABDOMEN: Grossly unremarkable. OTHER FINDINGS: An IVC filter remains in place. IMPRESSION: 1. Mild diffuse alveolar pulmonary edema, interstitial edema and pulmonary venous congestion with moderate cardiomegaly most compatible with mild congestive heart failure. 2. Few scattered peripheral tiny nodules in the right lung, the largest in the superior segment of the right lower lobe measures 5 mm. These are nonspecific but likely post inflammatory in etiology. Clinical follow-up is advised.
[2018-11-15] MEDS ORDERED: DiphenhydrAMINE 50 mg/ml Inj IVP PRN (17:22)
[2018-11-15] MEDS ORDERED: Albuterol-Ipratrop 3 mg / 0.5 (3 ml) UD IH PRN (17:34)
[2018-11-15] MEDS: DiphenhydrAMINE 50 mg/ml Inj IVP PRN ×2 (17:55→21:25)
[2018-11-15] MEDS: Epoetin Alfa 10,000 unit/ml Dialysis IV SCH (17:55)
[2018-11-15] MEDS: Sucralfate 1 gm/10 ml Oral Susp UD PO SCH ×2 (19:00→21:24)
[2018-11-15] MEDS: Ferric Sodium Gluconat Complex 62.5 mg/5 ml Vial IVPB SCH (19:07)
--- NOTE | 2018-11-15 20:00 | CP.PCM.HP ---
History of Present Illness - History of Present Illness History of Present Illness: 32 yo F with PMH of Asthma, CHF, DM, GI Ulcer and Gastroparesis, Hepatitis, HTN, HLD, Thyroid Disease, PNA, Pancreatitis, CKD/ESRD on HD, Seizure Disorder, Sleep Apnea, Anemia, Anxiety, CAD s/p coronary stent x1, Osteomyelitis (2017) presents to ED with c/o generalized vague abdominal pain a/w nausea and nonbloody nonbilious vomiting of onset 30 min [employer]. Pt reports abdominal pain of similar quality as prior abdominal pain episodes due to gastroparesis. Pt c/o chest pain localized to left upper chest. Pt is a dialysis patient with last HD session completed on 11/13/18. Pt was scheduled for next HD session today per [facility] schedule which did not occur. Pt denies fever, chills, SOB, diaphoresis, diarrhea, palpitations, dysuria, cough or sore throat. On presentation to ED pt was noted to be tachycardic @108 bpm and Hypertensive SBP >190. Pt in ED received Benaryl ivp, Zofran ivp and Fentanyl ivp. Present on Admission - Present on Admission Any Indicators Present on Admission: No Review of Systems - Cardiovascular Cardiovascular: Chest Pain - Gastrointestinal Gastrointestinal: Abdominal Pain, Nausea, Vomiting Past Patient History - Infectious Disease Hx of Infectious Diseases: None - Tetanus Immunizations Tetanus Immunization: Unknown - Past Medical History & Family History Past Medical History?: Yes - Past Social History Smoking Status: Never Smoked - CARDIAC Hx Congestive Heart Failure: Yes Hx Hypercholesterolemia: Yes Hx Hypertension: Yes Hx Peripheral Edema: Yes - PULMONARY Hx Asthma: Yes Hx Bronchitis: Yes Hx Pneumonia: Yes Hx Sleep Apnea: Yes - NEUROLOGICAL Hx Seizures: Yes - HEENT Hx HEENT Problems: Yes Hx Cataracts: Yes (BOTH EYES) Hx Glaucoma: Yes (BOTH EYES) - RENAL Hx Chronic Kidney Disease: Yes Hx Kidney Stones: Yes - ENDOCRINE/METABOLIC Hx Hyperthyroidism: Yes Hx Hypothyroidism: Yes - HEMATOLOGICAL/ONCOLOGICAL Hx Anemia: Yes - INTEGUMENTARY Hx Dermatological Problems: Yes Other/Comment: DRY ITCHY SKIN ;multiple/generalized dark spots on skin. left toe blister - MUSCULOSKELETAL/RHEUMATOLOGICAL Hx Fractures: Yes (LEFT FOOT) - GASTROINTESTINAL Hx Gall Bladder Disease: Yes Hx Gastritis: Yes Hx Pancreatitis: Yes - PSYCHIATRIC Hx Anxiety: Yes Hx Substance Use: No - SURGICAL HISTORY Hx Cholecystectomy: Yes Hx Coronary Stent: Yes (x1) - ANESTHESIA Hx Anesthesia: Yes Hx Anesthesia Reactions: No Hx Malignant Hyperthermia: No Meds Allergies/Adverse Reactions: Allergies Allergy/AdvReac Type Severity Reaction Status Date / Time ketorolac tromethamine Allergy RASH Verified 11/15/18 09:37 [From Toradol] latex Allergy RASH Verified 11/15/18 09:37 morphine Allergy RASH Verified 11/15/18 09:37 tramadol Allergy RASH Verified 11/15/18 09:37 Physical Exam - Constitutional Appears: Well - Head Exam Head Exam: ATRAUMATIC, NORMAL INSPECTION, NORMOCEPHALIC - Eye Exam Eye Exam: EOMI, Normal appearance, PERRL Pupil Exam: NORMAL ACCOMODATION, PERRL - ENT Exam ENT Exam: Mucous Membranes Moist, Normal Exam - Neck Exam Neck exam: Positive for: Normal Inspection - Respiratory Exam Respiratory Exam: Decreased Breath Sounds - Cardiovascular Exam Cardiovascular Exam: REGULAR RHYTHM, +S1, +S2 - GI/Abdominal Exam GI & Abdominal Exam: Diminished Bowel Sounds, Soft - Rectal Exam Rectal Exam: Deferred - Neurological Exam Neurological exam: Oriented x3 Results - Vital Signs Recent Vital Signs: Last Vital Signs Temp 98 F 11/15/18 17:00 Pulse 80 11/15/18 18:09 Resp 16 11/15/18 18:09 BP 182/99 H 11/15/18 19:15 Pulse Ox 96 11/15/18 17:00 - Labs Result Diagrams: 11/15/18 11:56 11/15/18 11:56 Labs: Laboratory Results - last 24 hr 11/15/18 11/15/18 11/15/18 11:56 11:56 17:27 WBC 8.0 RBC 2.97 L Hgb 9.2 L Hct 27.7 L MCV 93.4 MCH 31.1 H MCHC 33.3 RDW 16.2 H Plt Count 286 MPV 7.7 Neut % (Auto) 68.7 Lymph % (Auto) 13.3 L [place] % (Auto) 6.5 Eos % (Auto) 9.8 H Baso % (Auto) 1.7 Neut # (Auto) 5.5 Lymph # (Auto) 1.1 [place] # (Auto) 0.5 Eos # (Auto) 0.8 H Baso # (Auto) 0.1 Sodium 136 Potassium 5.7 H Chloride 96 L Carbon Dioxide 25 Anion Gap 20 BUN 73 H Creatinine 8.1 H* D Est GFR ( Amer) 7 Est GFR (Non-Af Amer) 6 POC Glucose (mg/dL) 79 Random Glucose 95 D Calcium 9.5 Total Bilirubin 0.4 AST 46 H D ALT 38 Alkaline Phosphatase 128 H Total Creatine Kinase 328 H CK-MB (Mass) 2.98 Troponin I 0.0210 NT-Pro-B Natriuret Pep > 08136 H Total Protein 7.1 Albumin 4.2 Globulin 2.9 Albumin/Globulin Ratio 1.5 Lipase 112 Beta HCG, Quant < 2.39 Assessment & Plan - Assessment and Plan (Free Text) Plan: Chest Pain / Abdominal Pain EKG reviewed CXR no acute findings TNI (-) x1 ASA cardiac enzymes q8h reglan prn n/v pain control CT Chest - mild CHF, nonspecific pulm nodules - largest 5 mm in superior segment RLL BNP >51153 no diuresis plans d/t renal failure - admit to tele with plans for HD today ESRD on HD missed HD session per [facility] schedule today BUN/Cr 73/8.1 HD per Renal Nephro consult Dr Phillips monitor BMP electrolytes renal diet as tolerated HTN remains hypertensive antihypertensives as ordered monitor VS Normocytic Anemia likely d/t ESRD H&H stable Hb 9.2 AM CBC DVT/GI ppx heparin / protonix
[2018-11-15] MEDS: (Novolin R) Insulin Human Regular 100 units/ml vial SC SCH (21:54)
[2018-11-16] MEDS: DiphenhydrAMINE 50 mg/ml Inj IVP PRN ×7 (00:45→23:44)
[2018-11-16] MEDS: (Novolin R) Insulin Human Regular 100 units/ml vial SC SCH ×4 (08:25→22:50)
[2018-11-16] MEDS: Pantoprazole 40 mg EC Tab PO SCH (09:03)
[2018-11-16] MEDS: Sucralfate 1 gm/10 ml Oral Susp UD PO SCH ×4 (09:04→21:47)
[2018-11-16] MEDS ORDERED: DiphenhydrAMINE 50 mg/ml Inj IVP STA (12:57)
--- NOTE | 2018-11-16 17:52 | CP.PCM.CON ---
History of Present Illness - History of Present Illness History of Present Illness: REASONS FOR CONSULT : ESRD ON HD M W F AND SAT HYPER KALEMIA .. K 5.7 FLIUD OVER LOAD .. CHF .. P.EDEMA PT WAS SEEN AND EXAMINED .. RECIEVED STAT HD YESTERDAY SUN AND ALSO TODAY 32 year old female presents to ED with complaint of diffuse abdominal pain, nausea, and vomiting that began 30 minutes [employer]. Patient states that the pain is similar to her prior gastroparesis. Patient also complains of left upper chest pain. Patient has a PMHx of osteomyelitis in 2017 and ESRD on HD. Patient's last round of dialysis was on 11/13/18 and was due to go today. Patient denies fever, chills, diaphoresis, and diarrhea. Past Patient History - Infectious Disease Hx of Infectious Diseases: None - Tetanus Immunizations Tetanus Immunization: Unknown - Past Medical History & Family History Past Medical History?: Yes - Past Social History Smoking Status: Never Smoked - CARDIAC Hx Congestive Heart Failure: Yes Hx Hypercholesterolemia: Yes Hx Hypertension: Yes Hx Peripheral Edema: Yes - PULMONARY Hx Asthma: Yes Hx Bronchitis: Yes Hx Pneumonia: Yes Hx Sleep Apnea: Yes - NEUROLOGICAL Hx Seizures: Yes - HEENT Hx HEENT Problems: Yes Hx Cataracts: Yes (BOTH EYES) Hx Glaucoma: Yes (BOTH EYES) - RENAL Hx Chronic Kidney Disease: Yes Hx Kidney Stones: Yes - ENDOCRINE/METABOLIC Hx Hyperthyroidism: Yes Hx Hypothyroidism: Yes - HEMATOLOGICAL/ONCOLOGICAL Hx Anemia: Yes - INTEGUMENTARY Hx Dermatological Problems: Yes Other/Comment: DRY ITCHY SKIN ;multiple/generalized dark spots on skin. left toe blister - MUSCULOSKELETAL/RHEUMATOLOGICAL Hx Fractures: Yes (LEFT FOOT) - GASTROINTESTINAL Hx Gall Bladder Disease: Yes Hx Gastritis: Yes Hx Pancreatitis: Yes - PSYCHIATRIC Hx Anxiety: Yes Hx Substance Use: No - SURGICAL HISTORY Hx Cholecystectomy: Yes Hx Coronary Stent: Yes (x1) - ANESTHESIA Hx Anesthesia: Yes Hx Anesthesia Reactions: No Hx Malignant Hyperthermia: No Meds Allergies/Adverse Reactions: Allergies Allergy/AdvReac Type Severity Reaction Status Date / Time ketorolac tromethamine Allergy RASH Verified 11/15/18 09:37 [From Toradol] latex Allergy RASH Verified 11/15/18 09:37 morphine Allergy RASH Verified 11/15/18 09:37 tramadol Allergy RASH Verified 11/15/18 09:37 - Medications Medications: Current Medications Albuterol/Ipratropium (Duoneb 3 Mg/0.5 Mg (3 Ml) Ud) 3 ml IH RQID PRN PRN Reason: Wheezing Amlodipine Besylate (Norvasc) 5 mg PO DAILY [facility] Last Admin: 11/16/18 09:03 Dose: 5 mg Aspirin (Ecotrin) 81 mg PO DAILY [facility] Last Admin: 11/16/18 09:03 Dose: 81 mg Calcium Acetate (Phoslo) 667 mg PO TID [facility] Last Admin: 11/16/18 17:34 Dose: 667 mg Carvedilol (Coreg) 3.125 mg PO BID [facility] Last Admin: 11/16/18 17:34 Dose: 3.125 mg Clonidine HCl (Catapres) 0.3 mg PO Q8 [facility] Last Admin: 11/16/18 14:28 Dose: 0.3 mg Diphenhydramine HCl (Benadryl) 50 mg IVP MWF PRN PRN Reason: itchiness Last Admin: 11/15/18 17:55 Dose: 50 mg Diphenhydramine HCl (Benadryl) 25 mg IVP .Q 3 HRS PRN PRN Reason: itchiness Last Admin: 11/16/18 15:32 Dose: 25 mg Docusate Sodium (Colace) 100 mg PO TID [facility] Last Admin: 11/16/18 17:34 Dose: 100 mg Epoetin James (Procrit) 10,000 unit [place] [facility] Last Admin: 11/15/18 17:55 Dose: 10,000 unit Ergocalciferol (Drisdol 50,000 Intl Units Cap) 1 cap PO QWK [facility] Ferric Sodium Gluconate Complex (Ferrlecit) 125 mg IVPB [facility] Stop: 11/23/18 09:01 Last Admin: 11/15/18 19:07 Dose: 125 mg Gabapentin (Neurontin) 400 mg PO BID [facility] Last Admin: 11/16/18 17:34 Dose: 400 mg Heparin Sodium (Porcine) (Heparin) 5,000 units SC Q12 [facility] Last Admin: 11/16/18 09:04 Dose: Not Given Hydromorphone HCl (Dilaudid) 2 mg IVP Q3 PRN PRN Reason: Pain, moderate (4-7) Last Admin: 11/16/18 17:34 Dose: 2 mg Insulin Glargine (Lantus) 25 unit SC [facility] Insulin Human Regular (Novolin R) 0 unit SC [facility]; Protocol Last Admin: 11/16/18 17:16 Dose: Not Given Metoclopramide HCl (Reglan) 10 mg PO BID PRN PRN Reason: Nausea/Vomiting Last Admin: 11/16/18 17:34 Dose: 10 mg Pantoprazole Sodium (Protonix Ec Tab) 40 mg PO DAILY [facility] Last Admin: 11/16/18 09:03 Dose: 40 mg Sucralfate (Carafate Oral Susp) 1 gm PO QID [facility] Last Admin: 11/16/18 17:34 Dose: 1 gm Results - Vital Signs Recent Vital Signs: Last Vital Signs Temp 97.8 F 11/16/18 16:10 Pulse 101 H 11/16/18 16:10 Resp 18 11/16/18 16:10 BP 125/72 11/16/18 16:10 Pulse Ox 96 11/16/18 16:10 - Labs Result Diagrams: 11/15/18 11:56 11/15/18 11:56 Labs: Laboratory Results - last 24 hr 11/15/18 11/16/18 11/16/18 20:59 02:06 06:51 POC Glucose (mg/dL) 179 H 298 H 224 H 11/16/18 11/16/18 11:45 16:55 POC Glucose (mg/dL) 213 H 106 Assessment & Plan - Assessment and Plan (Free Text) Assessment: ESRD ON HD QID .. RECIEVED HD YESTERDAY AND TODAY HYPER KALEMIA .. RECIEVED HD F.OVERLOAD .. RECIEVED HD YESTERDAY AND TODAY MMP p : C/O EXTENSIVE HD RENAL AND DIABETIC DIET FLIUD RESTRICTION 1000 CC / D C/O PRESENT MEDS - Date & Time Date: 11/16/18 Time: 16:00
--- NOTE | 2018-11-16 19:34 | CP.PCM.PN ---
Subjective - Date & Time of Evaluation Date of Evaluation: 11/16/18 Time of Evaluation: 02:35 - Subjective Subjective: no nausea or no vomtting no fever s/p hd dc planing pt discourage to use narcotics Objective - Vital Signs/Intake and Output Vital Signs (last 24 hours): Temp Pulse Resp BP Pulse Ox 97.8 F 101 H 18 125/72 96 11/16/18 16:10 11/16/18 16:10 11/16/18 16:10 11/16/18 16:10 11/16/18 16:10 - Medications Medications: Current Medications Albuterol/Ipratropium (Duoneb 3 Mg/0.5 Mg (3 Ml) Ud) 3 ml IH RQID PRN PRN Reason: Wheezing Amlodipine Besylate (Norvasc) 5 mg PO DAILY [facility] Last Admin: 11/16/18 09:03 Dose: 5 mg Aspirin (Ecotrin) 81 mg PO DAILY [facility] Last Admin: 11/16/18 09:03 Dose: 81 mg Calcium Acetate (Phoslo) 667 mg PO TID [facility] Last Admin: 11/16/18 17:34 Dose: 667 mg Carvedilol (Coreg) 3.125 mg PO BID [facility] Last Admin: 11/16/18 17:34 Dose: 3.125 mg Clonidine HCl (Catapres) 0.3 mg PO Q8 [facility] Last Admin: 11/16/18 14:28 Dose: 0.3 mg Diphenhydramine HCl (Benadryl) 50 mg IVP MWF PRN PRN Reason: itchiness Last Admin: 11/15/18 17:55 Dose: 50 mg Diphenhydramine HCl (Benadryl) 25 mg IVP .Q 3 HRS PRN PRN Reason: itchiness Last Admin: 11/16/18 15:32 Dose: 25 mg Docusate Sodium (Colace) 100 mg PO TID [facility] Last Admin: 11/16/18 17:34 Dose: 100 mg Epoetin James (Procrit) 10,000 unit IV [facility] [place] Last Admin: 11/15/18 17:55 Dose: 10,000 unit Ergocalciferol (Drisdol 50,000 Intl Units Cap) 1 cap PO QWK [facility] Ferric Sodium Gluconate Complex (Ferrlecit) 125 mg IVPB [facility] Stop: 11/23/18 09:01 Last Admin: 11/15/18 19:07 Dose: 125 mg Gabapentin (Neurontin) 400 mg PO BID [facility] Last Admin: 11/16/18 17:34 Dose: 400 mg Heparin Sodium (Porcine) (Heparin) 5,000 units SC Q12 [facility] Last Admin: 11/16/18 09:04 Dose: Not Given Hydromorphone HCl (Dilaudid) 2 mg IVP Q3 PRN PRN Reason: Pain, moderate (4-7) Last Admin: 11/16/18 17:34 Dose: 2 mg Insulin Glargine (Lantus) 25 unit SC HS [facility] Insulin Human Regular (Novolin R) 0 unit SC ACHS [facility]; Protocol Last Admin: 11/16/18 17:16 Dose: Not Given Metoclopramide HCl (Reglan) 10 mg PO BID PRN PRN Reason: Nausea/Vomiting Last Admin: 11/16/18 17:34 Dose: 10 mg Pantoprazole Sodium (Protonix Ec Tab) 40 mg PO DAILY [facility] Last Admin: 11/16/18 09:03 Dose: 40 mg Sucralfate (Carafate Oral Susp) 1 gm PO QID [facility] Last Admin: 11/16/18 17:34 Dose: 1 gm - Labs Labs: 11/15/18 11:56 11/15/18 11:56 - Constitutional Appears: Well - Head Exam Head Exam: ATRAUMATIC, NORMAL INSPECTION, NORMOCEPHALIC - Eye Exam Eye Exam: EOMI, Normal appearance, PERRL Pupil Exam: NORMAL ACCOMODATION, PERRL - ENT Exam ENT Exam: Mucous Membranes Moist, Normal Exam - Neck Exam Neck Exam: Full ROM, Normal Inspection. absent: Lymphadenopathy - Respiratory Exam Respiratory Exam: Decreased Breath Sounds - GI/Abdominal Exam GI & Abdominal Exam: Soft, Diminished Bowel Sounds - Rectal Exam Rectal Exam: Deferred - Neurological Exam Neurological Exam: Oriented x3 Assessment and Plan - Assessment and Plan (Free Text) Plan: medications reviewed benadryl carafate oral sln catapress colace coreg dilaudid drisdol duoneb ecotrin ferrlecit heparin lantus neurontin norvasc novolin R phoslo procrit protonix reglan vitals reviewed as well as labs Status post urgent dialysis Possible discharge tomorrow Continue pain medicines Status post potassium 5.7 Creatinine 8.1 Hemoglobin 9.2 Monitor the blood pressure Follow-up with resolved Cardiac enzymes every 8 Reglan as needed Complaints encourage for hemodialysis as patient occasionally misses the hemodialysis No vitals seen Electrolyte reviewed Mother bedside
[2018-11-16] MEDS ORDERED: DiphenhydrAMINE 50 mg/ml Inj IVP ONE (21:55)
[2018-11-16] MEDS: (Lantus) Insulin Glargine, Recombinant SC SCH (22:50)
[2018-11-17] MEDS: DiphenhydrAMINE 50 mg/ml Inj IVP PRN ×7 (03:44→22:58)
[2018-11-17] MEDS: (Novolin R) Insulin Human Regular 100 units/ml vial SC SCH ×4 (09:10→21:44)
--- NOTE | 2018-11-17 10:07 | CP.PCM.PN ---
Subjective - Date & Time of Evaluation Date of Evaluation: 11/17/18 - Subjective Subjective: Patient seen and examined today No nausea No vomiting No fever No diarrhea No dizziness No shortness of breath Objective - Vital Signs/Intake and Output Vital Signs (last 24 hours): Temp Pulse Resp BP Pulse Ox 98.5 F 77 20 153/93 H 98 11/17/18 07:00 11/17/18 07:00 11/17/18 07:00 11/17/18 07:00 11/17/18 07:00 Intake and Output: 11/17/18 11/17/18 06:59 18:59 Intake Total 300 Balance 300 - Medications Medications: Current Medications Albuterol/Ipratropium (Duoneb 3 Mg/0.5 Mg (3 Ml) Ud) 3 ml IH RQID PRN PRN Reason: Wheezing Last Admin: 11/16/18 20:14 Dose: 3 ml Amlodipine Besylate (Norvasc) 5 mg PO DAILY [facility] Last Admin: 11/16/18 09:03 Dose: 5 mg Aspirin (Ecotrin) 81 mg PO DAILY [facility] Last Admin: 11/16/18 09:03 Dose: 81 mg Calcium Acetate (Phoslo) 667 mg PO TID [facility] Last Admin: 11/16/18 17:34 Dose: 667 mg Carvedilol (Coreg) 3.125 mg PO BID [facility] Last Admin: 11/16/18 17:34 Dose: 3.125 mg Clonidine HCl (Catapres) 0.3 mg PO Q8 [facility] Last Admin: 11/17/18 06:22 Dose: 0.3 mg Diphenhydramine HCl (Benadryl) 50 mg IVP MWF PRN PRN Reason: itchiness Last Admin: 11/15/18 17:55 Dose: 50 mg Diphenhydramine HCl (Benadryl) 25 mg IVP .Q 3 HRS PRN PRN Reason: itchiness Last Admin: 11/17/18 06:36 Dose: 25 mg Docusate Sodium (Colace) 100 mg PO TID [facility] Last Admin: 11/16/18 17:34 Dose: 100 mg Epoetin James (Procrit) 10,000 unit IV MWF [facility] Last Admin: 11/15/18 17:55 Dose: 10,000 unit Ergocalciferol (Drisdol 50,000 Intl Units Cap) 1 cap PO QWK [facility] Ferric Sodium Gluconate Complex (Ferrlecit) 125 mg IVPB MWF [facility] Stop: 11/23/18 09:01 Last Admin: 11/15/18 19:07 Dose: 125 mg Gabapentin (Neurontin) 400 mg PO BID [facility] Last Admin: 11/16/18 17:34 Dose: 400 mg Heparin Sodium (Porcine) (Heparin) 5,000 units SC Q12 [facility] Last Admin: 11/16/18 22:50 Dose: Not Given Hydromorphone HCl (Dilaudid) 2 mg IVP Q3 PRN PRN Reason: Pain, moderate (4-7) Last Admin: 11/17/18 06:36 Dose: 2 mg Insulin Glargine (Lantus) 25 unit SC HS [facility] Last Admin: 11/16/18 22:50 Dose: Not Given Insulin Human Regular (Novolin R) 0 unit SC ACHS [facility]; Protocol Last Admin: 11/17/18 09:10 Dose: 3 unit Metoclopramide HCl (Reglan) 10 mg PO BID PRN PRN Reason: Nausea/Vomiting Last Admin: 11/16/18 17:34 Dose: 10 mg Pantoprazole Sodium (Protonix Ec Tab) 40 mg PO DAILY [facility] Last Admin: 11/16/18 09:03 Dose: 40 mg Sucralfate (Carafate Oral Susp) 1 gm PO QID [facility] Last Admin: 11/16/18 21:47 Dose: 1 gm - Labs Labs: 11/15/18 11:56 11/15/18 11:56 - Constitutional Appears: Well - Head Exam Head Exam: ATRAUMATIC, NORMAL INSPECTION, NORMOCEPHALIC - Eye Exam Eye Exam: EOMI, Normal appearance, PERRL Pupil Exam: NORMAL ACCOMODATION, PERRL - ENT Exam ENT Exam: Mucous Membranes Moist, Normal Exam - Neck Exam Neck Exam: Full ROM, Normal Inspection. absent: Lymphadenopathy - Respiratory Exam Respiratory Exam: Decreased Breath Sounds - Cardiovascular Exam Cardiovascular Exam: REGULAR RHYTHM, +S1, +S2 - GI/Abdominal Exam GI & Abdominal Exam: Soft, Diminished Bowel Sounds - Rectal Exam Rectal Exam: Deferred - Neurological Exam Neurological Exam: Oriented x3 Assessment and Plan - Assessment and Plan (Free Text) Plan: benadryl carafate oral susp catapress colace coreg dilaudid drisdol duoneb ecotrin ferrlecit heparin lantus neurontin norvasc ronald Lord phoslo procrit protonix ec tab reglan medications reviewed labs reviewed vitals reviewed
[2018-11-17] MEDS: Sucralfate 1 gm/10 ml Oral Susp UD PO SCH ×4 (10:09→22:54)
[2018-11-17] MEDS: Pantoprazole 40 mg EC Tab PO SCH (10:09)
[2018-11-17] MEDS ORDERED: DiphenhydrAMINE 50 mg/ml Inj IVP ONE (15:55)
[2018-11-17] MEDS: (Lantus) Insulin Glargine, Recombinant SC SCH (22:54)
[2018-11-18] MEDS: DiphenhydrAMINE 50 mg/ml Inj IVP PRN ×7 (02:03→21:47)
[2018-11-18] MEDS: (Novolin R) Insulin Human Regular 100 units/ml vial SC SCH ×4 (08:20→21:24)
[2018-11-18] MEDS: Pantoprazole 40 mg EC Tab PO SCH (10:07)
[2018-11-18] MEDS: Sucralfate 1 gm/10 ml Oral Susp UD PO SCH ×4 (10:07→21:47)
--- NOTE | 2018-11-18 12:26 | CP.PCM.PN ---
Subjective - Date & Time of Evaluation Date of Evaluation: 11/18/18 Time of Evaluation: 12:24 - Subjective Subjective: Progress Note- Dr. Sexton's service Patient seen and examined at bedside. Patient with no acute complaints. She is found eating breakfast with mother at bedside. She is for dialysis later today. She denied chest pain, dyspnea, nausea, vomiting, diarrhea, constipation at this time. Objective - Vital Signs/Intake and Output Vital Signs (last 24 hours): Temp Pulse Resp BP Pulse Ox 98.2 F 74 20 178/110 H 98 11/18/18 07:00 11/18/18 07:00 11/18/18 07:00 11/18/18 07:00 11/18/18 07:00 - Medications Medications: Current Medications Albuterol/Ipratropium (Duoneb 3 Mg/0.5 Mg (3 Ml) Ud) 3 ml IH RQID PRN PRN Reason: Wheezing Last Admin: 11/16/18 20:14 Dose: 3 ml Amlodipine Besylate (Norvasc) 5 mg PO DAILY [facility] Last Admin: 11/18/18 10:08 Dose: Not Given Aspirin (Ecotrin) 81 mg PO DAILY [facility] Last Admin: 11/18/18 10:07 Dose: 81 mg Calcium Acetate (Phoslo) 667 mg PO TID [facility] Last Admin: 11/18/18 10:07 Dose: 667 mg Carvedilol (Coreg) 3.125 mg PO BID [facility] Last Admin: 11/18/18 10:07 Dose: Not Given Clonidine HCl (Catapres) 0.3 mg PO Q8 [facility] Last Admin: 11/18/18 06:23 Dose: 0.3 mg Diphenhydramine HCl (Benadryl) 50 mg IVP MWF PRN PRN Reason: itchiness Last Admin: 11/15/18 17:55 Dose: 50 mg Diphenhydramine HCl (Benadryl) 25 mg IVP .Q 3 HRS PRN PRN Reason: itchiness Last Admin: 11/18/18 11:19 Dose: 25 mg Docusate Sodium (Colace) 100 mg PO TID [facility] Last Admin: 11/18/18 10:07 Dose: 100 mg Epoetin James (Procrit) 10,000 unit IV MWF [facility] Last Admin: 11/15/18 17:55 Dose: 10,000 unit Ergocalciferol (Drisdol 50,000 Intl Units Cap) 1 cap PO QWK [facility] Ferric Sodium Gluconate Complex (Ferrlecit) 125 mg IVPB MWF [facility] Stop: 11/23/18 09:01 Last Admin: 11/15/18 19:07 Dose: 125 mg Gabapentin (Neurontin) 400 mg PO BID [facility] Last Admin: 11/18/18 10:07 Dose: 400 mg Heparin Sodium (Porcine) (Heparin) 5,000 units SC Q12 [facility] Last Admin: 11/18/18 10:09 Dose: Not Given Hydromorphone HCl (Dilaudid) 2 mg IVP Q3 PRN PRN Reason: Pain, moderate (4-7) Last Admin: 11/18/18 11:19 Dose: 2 mg Insulin Glargine (Lantus) 25 unit SC HS [facility] Last Admin: 11/17/18 22:54 Dose: 25 units Insulin Human Regular (Novolin R) 0 unit SC ACHS [facility]; Protocol Last Admin: 11/18/18 11:44 Dose: Not Given Metoclopramide HCl (Reglan) 10 mg PO BID PRN PRN Reason: Nausea/Vomiting Last Admin: 11/17/18 12:19 Dose: 10 mg Pantoprazole Sodium (Protonix Ec Tab) 40 mg PO DAILY [facility] Last Admin: 11/18/18 10:07 Dose: 40 mg Sucralfate (Carafate Oral Susp) 1 gm PO QID [facility] Last Admin: 11/18/18 10:07 Dose: 1 gm - Labs Labs: 11/15/18 11:56 11/15/18 11:56 - Additional Findings Additional findings: - Constitutional Appears: Non-toxic, No Acute Distress - Head Exam Head Exam: ATRAUMATIC, NORMAL INSPECTION - Eye Exam Eye Exam: EOMI, Normal appearance Pupil Exam: NORMAL ACCOMODATION - ENT Exam ENT Exam: Mucous Membranes Moist - Neck Exam Neck Exam: Full ROM - Respiratory Exam Respiratory Exam: NORMAL BREATHING PATTERN - Cardiovascular Exam Cardiovascular Exam: +S1, +S2 - GI/Abdominal Exam GI & Abdominal Exam: Soft, Normal Bowel Sounds - Extremities Exam Extremities Exam: Full ROM Additional comments: hyperkeratotic lesions on LE shins bilaterally, tender - Back Exam Back Exam: Full ROM - Neurological Exam Neurological Exam: Alert, Awake, Oriented x3 - Psychiatric Exam Psychiatric exam: Normal Affect, Normal Mood - Skin Skin Exam: Dry, Normal Color, Warm Additional comments: thickened darkened, toenail discoloration Assessment and Plan - Assessment and Plan (Free Text) Plan: DM with gastroparesis Well controlled DM -Latest A1C (09/2018): 6.8 Accucheck ACHS hypoglycemia protocol Lantus 25 U SC HS [facility] Reglan 10mg PO BID PRN Sucralfate 1gm PO QID [facility] Intractable pain Patient with hx of noncompliance and drug seeking habits. Patient was given fentanyl patched on last admission but had issues obtaining them due to insurance. She also has not made an appointment with pain management. Need to professor of counseling on pain management. Continue Dilaudid 2mg IVP Q3H Continue Benadryl 25 IV Q3H Colace 100mg PO TID Skin hyperkeratotic lesions Discussed benefits of a biopsy. Patient will think it over at this time. DM neuropathy Neurontin 400mg PO BID Anemia of chronic disease Hgb 9.2 stable Procrit 10k u MWF IV Ferrlecit 125mg IV MWF HTN BP poorly controlled Increase Norvasc to 10 mg PO daily Coreg 3.125mg PO BID Catapres 0.3mg PO Q8H KAREN ESRD Nephrology, Dr. Phillips consulted HD M/W/F/ Sa Hgb 9.2 Nephro-main 1 tablet PO daily Procrit 10k u MWF IV Ferrlecit 125mg IV MWF Phoslo 667mg PO TID Nausea Reglan 10mg PO daily Vit D Deficiency Ergocalciferol 50k 1 cap qwkly Prophylaxis Heparin 5k units SC q12hrs ASA 81mg PO Daily Protonix 40mg PO daily Colace 100mg PO TID Discussed with attending. All medical management per Dr. Edilia Sexton
--- NOTE | 2018-11-18 13:40 | CP.PCM.PN ---
Subjective - Date & Time of Evaluation Date of Evaluation: 11/18/18 - Subjective Subjective: patient was examined today no nausea no vomiting no fever no diarrhea no shortness of breath Objective - Vital Signs/Intake and Output Vital Signs (last 24 hours): Temp Pulse Resp BP Pulse Ox 98.2 F 74 20 178/110 H 98 11/18/18 07:00 11/18/18 07:00 11/18/18 07:00 11/18/18 07:00 11/18/18 07:00 - Medications Medications: Current Medications Albuterol/Ipratropium (Duoneb 3 Mg/0.5 Mg (3 Ml) Ud) 3 ml IH RQID PRN PRN Reason: Wheezing Last Admin: 11/16/18 20:14 Dose: 3 ml Amlodipine Besylate (Norvasc) 10 mg PO DAILY [facility] Aspirin (Ecotrin) 81 mg PO DAILY [facility] Last Admin: 11/18/18 10:07 Dose: 81 mg Calcium Acetate (Phoslo) 667 mg PO TID [facility] Last Admin: 11/18/18 10:07 Dose: 667 mg Carvedilol (Coreg) 3.125 mg PO BID [facility] Last Admin: 11/18/18 10:07 Dose: Not Given Clonidine HCl (Catapres) 0.3 mg PO Q8 [facility] Last Admin: 11/18/18 06:23 Dose: 0.3 mg Diphenhydramine HCl (Benadryl) 50 mg IVP [facility] PRN PRN Reason: itchiness Last Admin: 11/15/18 17:55 Dose: 50 mg Diphenhydramine HCl (Benadryl) 25 mg IVP .Q 3 HRS PRN PRN Reason: itchiness Last Admin: 11/18/18 11:19 Dose: 25 mg Docusate Sodium (Colace) 100 mg PO TID [facility] Last Admin: 11/18/18 10:07 Dose: 100 mg Epoetin James (Procrit) 10,000 unit IV [facility] Last Admin: 11/15/18 17:55 Dose: 10,000 unit Ergocalciferol (Drisdol 50,000 Intl Units Cap) 1 cap PO QWK [facility] Ferric Sodium Gluconate Complex (Ferrlecit) 125 mg IVPB [facility] Stop: 11/23/18 09:01 Last Admin: 11/15/18 19:07 Dose: 125 mg Gabapentin (Neurontin) 400 mg PO BID [facility] Last Admin: 11/18/18 10:07 Dose: 400 mg Heparin Sodium (Porcine) (Heparin) 5,000 units SC Q12 [facility] Last Admin: 11/18/18 10:09 Dose: Not Given Hydromorphone HCl (Dilaudid) 2 mg IVP Q3 PRN PRN Reason: Pain, moderate (4-7) Last Admin: 11/18/18 11:19 Dose: 2 mg Insulin Glargine (Lantus) 25 unit SC HS [facility] Last Admin: 11/17/18 22:54 Dose: 25 units Insulin Human Regular (Novolin R) 0 unit SC ACHS [facility]; Protocol Last Admin: 11/18/18 11:44 Dose: Not Given Metoclopramide HCl (Reglan) 10 mg PO BID PRN PRN Reason: Nausea/Vomiting Last Admin: 11/17/18 12:19 Dose: 10 mg Pantoprazole Sodium (Protonix Ec Tab) 40 mg PO DAILY [facility] Last Admin: 11/18/18 10:07 Dose: 40 mg Sucralfate (Carafate Oral Susp) 1 gm PO QID [facility] Last Admin: 11/18/18 10:07 Dose: 1 gm - Labs Labs: 11/15/18 11:56 11/15/18 11:56 - Constitutional Appears: Well - Head Exam Head Exam: ATRAUMATIC, NORMAL INSPECTION, NORMOCEPHALIC - Eye Exam Eye Exam: EOMI, Normal appearance, PERRL Pupil Exam: NORMAL ACCOMODATION, PERRL - ENT Exam ENT Exam: Mucous Membranes Moist, Normal Exam - Neck Exam Neck Exam: Full ROM, Normal Inspection. absent: Lymphadenopathy - Respiratory Exam Respiratory Exam: Decreased Breath Sounds - Cardiovascular Exam Cardiovascular Exam: REGULAR RHYTHM, +S1, +S2 - GI/Abdominal Exam GI & Abdominal Exam: Soft, Diminished Bowel Sounds - Rectal Exam Rectal Exam: Deferred - Neurological Exam Neurological Exam: Oriented x3 Assessment and Plan - Assessment and Plan (Free Text) Plan: medications reviewed vitals reviewed labs reviewed
[2018-11-18] MEDS: Ferric Sodium Gluconat Complex 62.5 mg/5 ml Vial IVPB SCH (14:49)
[2018-11-18] MEDS: Epoetin Alfa 10,000 unit/ml Dialysis IV SCH (14:50)
--- NOTE | 2018-11-18 14:56 | CARD ---
APPROVED REPORT Date of service: 11/15/2018 EKG Measurement Heart [id number] [id number] [id number] <Conclusion> Normal sinus rhythm Left posterior fascicular block Abnormal QRS-T angle, consider primary T wave abnormality Abnormal ECG
--- NOTE | 2018-11-18 15:32 | CP.PCM.PN ---
Subjective - Date & Time of Evaluation Date of Evaluation: 11/18/18 Time of Evaluation: 15:32 - Subjective Subjective: PATIENT SEEN AND EXAMINED AT THE BEDSIDE Objective - Vital Signs/Intake and Output Vital Signs (last 24 hours): Temp Pulse Resp BP Pulse Ox 98.2 F 74 20 148/107 H 98 11/18/18 07:00 11/18/18 07:00 11/18/18 07:00 11/18/18 14:55 11/18/18 07:00 Intake and Output: 11/18/18 11/18/18 06:59 18:59 Intake Total 400 Balance 400 - Medications Medications: Current Medications Albuterol/Ipratropium (Duoneb 3 Mg/0.5 Mg (3 Ml) Ud) 3 ml IH RQID PRN PRN Reason: Wheezing Last Admin: 11/16/18 20:14 Dose: 3 ml Amlodipine Besylate (Norvasc) 10 mg PO DAILY [facility] Aspirin (Ecotrin) 81 mg PO DAILY [facility] Last Admin: 11/18/18 10:07 Dose: 81 mg Calcium Acetate (Phoslo) 667 mg PO TID [facility] Last Admin: 11/18/18 14:22 Dose: Not Given Carvedilol (Coreg) 3.125 mg PO BID [facility] Last Admin: 11/18/18 10:07 Dose: Not Given Clonidine HCl (Catapres) 0.3 mg PO Q8 [facility] Last Admin: 11/18/18 14:22 Dose: Not Given Diphenhydramine HCl (Benadryl) 50 mg IVP MWF PRN PRN Reason: itchiness Last Admin: 11/18/18 14:34 Dose: 50 mg Diphenhydramine HCl (Benadryl) 25 mg IVP .Q 3 HRS PRN PRN Reason: itchiness Last Admin: 11/18/18 11:19 Dose: 25 mg Docusate Sodium (Colace) 100 mg PO TID [facility] Last Admin: 11/18/18 14:22 Dose: Not Given Epoetin [place] (Procrit) 10,000 [place] [facility] [place] Admin: 11/18/18 14:50 Dose: 10,000 unit Ergocalciferol (Drisdol 50,000 Intl Units Cap) 1 cap PO QWK [facility] Ferric Sodium Gluconate Complex (Ferrlecit) 125 mg IVPB [facility] [place] Stop: 11/23/18 09:01 Last Admin: 11/18/18 14:49 Dose: 125 mg Gabapentin (Neurontin) 400 mg PO BID [facility] Last Admin: 11/18/18 10:07 Dose: 400 mg Heparin Sodium (Porcine) (Heparin) 5,000 units SC Q12 [facility] Last Admin: 11/18/18 10:09 Dose: Not Given Hydromorphone HCl (Dilaudid) 2 mg IVP Q3 PRN PRN Reason: Pain, moderate (4-7) Last Admin: 11/18/18 14:31 Dose: 2 mg Insulin Glargine (Lantus) 25 unit SC HS [facility] Last Admin: 11/17/18 22:54 Dose: 25 units Insulin Human Regular (Novolin R) 0 unit SC ACHS [facility]; Protocol Last Admin: 11/18/18 11:44 Dose: Not Given Metoclopramide HCl (Reglan) 10 mg PO BID PRN PRN Reason: Nausea/Vomiting Last Admin: 11/17/18 12:19 Dose: 10 mg Pantoprazole Sodium (Protonix Ec Tab) 40 mg PO DAILY [facility] Last Admin: 11/18/18 10:07 Dose: 40 mg Sucralfate (Carafate Oral Susp) 1 gm PO QID [facility] Last Admin: 11/18/18 14:22 Dose: Not Given - Labs Labs: 11/15/18 11:56 11/15/18 11:56 Assessment and Plan - Assessment and Plan (Free Text) Assessment: FOLLOW UP WITH DR Edilia CARVALHO IN HIS OFFICE CONTINUE HOME MEDICATION ACTIVITY TOLERATED CALL DR Edilia CARVALHO OR GO TO THE EMERGENCY ROOM IF SYMPTOM RETURN OR WORSENING
[2018-11-18 16:14] LABS: HEMOGLOBIN 9.1 g/dL (11.0-16.0); MEAN CELL VOLUME 93.6 fL (81.0-99.0); MEAN CORPUSCULAR HEMOGLOBIN 30.8 pg (27.0-31.0); MEAN PLATELET VOLUME 7.8 fL (7.2-11.7); RBC 2.96 Mil/uL (3.80-5.20); RED CELL DISTRIBUTION WIDTH 16.3 % (11.5-14.5); WHITE BLOOD COUNT 4.7 K/uL (4.8-10.8)
--- NOTE | 2018-11-18 19:27 | CP.PCM.PN ---
Subjective - Date & Time of Evaluation Date of Evaluation: 11/18/18 Time of Evaluation: 15:00 - Subjective Subjective: ESRD ON HD M W F AND SAT ANEMIA OF CKD MMP P : C/O PRESENT CARE C/O CURRENT MANAGEMENT Objective - Vital Signs/Intake and Output Vital Signs (last 24 hours): Temp Pulse Resp BP Pulse Ox 98.5 F 89 18 177/93 H 100 11/18/18 18:44 11/18/18 18:44 11/18/18 18:44 11/18/18 18:44 11/18/18 18:44 Intake and Output: 11/18/18 11/19/18 18:59 06:59 Intake Total 400 Balance 400 - Medications Medications: Current Medications Albuterol/Ipratropium (Duoneb 3 Mg/0.5 Mg (3 Ml) Ud) 3 ml IH RQID PRN PRN Reason: Wheezing Last Admin: 11/16/18 20:14 Dose: 3 ml Amlodipine Besylate (Norvasc) 10 mg PO DAILY [facility] Aspirin (Ecotrin) 81 mg PO DAILY [facility] [place] Last Admin: 11/18/18 10:07 Dose: 81 mg Calcium Acetate (Phoslo) 667 mg PO TID [facility] [place] Last Admin: 11/18/18 18:35 Dose: 667 mg Carvedilol (Coreg) 3.125 mg PO BID [facility] [place] Last Admin: 11/18/18 18:35 Dose: 3.125 mg Clonidine HCl (Catapres) 0.3 mg PO Q8 [facility] [place] Last Admin: 11/18/18 14:22 Dose: Not Given Diphenhydramine HCl (Benadryl) 50 mg IVP MWF PRN PRN Reason: itchiness Last Admin: 11/18/18 14:34 Dose: 50 mg Diphenhydramine HCl (Benadryl) 25 mg IVP .Q 3 HRS PRN PRN Reason: itchiness Last Admin: 11/18/18 18:37 Dose: 25 mg Docusate Sodium (Colace) 100 mg PO TID [facility] [place] Last Admin: 11/18/18 18:35 Dose: 100 mg Epoetin James (Procrit) 10,000 unit IV MWF [facility] [place] Last Admin: 11/18/18 14:50 Dose: 10,000 unit Ergocalciferol (Drisdol 50,000 Intl Units Cap) 1 cap PO QWK [facility] [place] Ferric Sodium Gluconate Complex (Ferrlecit) 125 mg IVPB MWF [facility] [place] Stop: 11/23/18 09:01 Last Admin: 11/18/18 14:49 Dose: 125 mg Gabapentin (Neurontin) 400 mg PO BID [facility] [place] Last Admin: 11/18/18 18:36 Dose: 400 mg Heparin Sodium (Porcine) (Heparin) 5,000 units SC Q12 [facility] [place] Last Admin: 11/18/18 10:09 Dose: Not Given Hydromorphone HCl (Dilaudid) 2 mg IVP Q3 PRN PRN Reason: Pain, moderate (4-7) Last Admin: 11/18/18 18:36 Dose: 2 mg Insulin Glargine (Lantus) 25 unit SC HS [facility] [place] Last Admin: 11/17/18 22:54 Dose: 25 units Insulin Human Regular (Novolin R) 0 unit SC [facility] [place]; Protocol Last Admin: 11/18/18 16:04 Dose: Not Given Metoclopramide HCl (Reglan) 10 mg PO BID PRN PRN Reason: Nausea/Vomiting Last Admin: 11/17/18 12:19 Dose: 10 mg Pantoprazole Sodium (Protonix Ec Tab) 40 mg PO DAILY [facility] [place] Last Admin: 11/18/18 10:07 Dose: 40 mg Sucralfate (Carafate Oral Susp) 1 gm PO QID [facility] [place] Last Admin: 11/18/18 18:36 Dose: 1 gm - Labs Labs: 11/18/18 16:08 11/15/18 11:56
[2018-11-18] MEDS: (Lantus) Insulin Glargine, Recombinant SC SCH (21:46)
[2018-11-19] MEDS: DiphenhydrAMINE 50 mg/ml Inj IVP PRN ×2 (00:20→11:52)
[2018-11-19 08:04] VITALS: BP 169/102; PULSE 79; RESP 20; TEMP 98.7; O2SAT 100
[2018-11-19 08:19] LABS: BASO # 0.1 K/uL (0.0-0.2); BASO % 1.3 % (0.0-2.0); EOS # 0.8 K/uL (0.0-0.7); HEMOGLOBIN 9.3 g/dL (11.0-16.0); LYMPH # 1.6 K/uL (1.0-4.3); LYMPH % 21.9 % (20.0-40.0); MEAN CELL VOLUME 94.5 fL (81.0-99.0); MEAN CORPUSCULAR HEMOGLOBIN 30.9 pg (27.0-31.0); MEAN CORPUSCULAR HGB CONC 32.6 g/dL (33.0-37.0); MEAN PLATELET VOLUME 7.7 fL (7.2-11.7); MONO # 0.7 K/uL (0.0-0.8); MONO % 9.8 % (0.0-10.0); NRBC % 0.1 % (0.0-2.0); RBC 3.02 Mil/uL (3.80-5.20); RED CELL DISTRIBUTION WIDTH 16.1 % (11.5-14.5)
[2018-11-19 08:21] LABS: WHITE BLOOD COUNT 7.1 K/uL (4.8-10.8)
[2018-11-19 08:39] LABS: ALB/GLOB RATIO 1.4 (1.0-2.1); ALBUMIN 4.3 g/dL (3.5-5.0); CALCIUM 8.6 mg/dl (8.6-10.4)
[2018-11-19] MEDS: (Novolin R) Insulin Human Regular 100 units/ml vial SC SCH (08:40)
[2018-11-19] MEDS: Pantoprazole 40 mg EC Tab PO SCH (09:56)
[2018-11-19] MEDS: Sucralfate 1 gm/10 ml Oral Susp UD PO SCH (09:57)
--- NOTE | 2018-11-19 18:10 | CP.PCM.DIS ---
Provider - Provider Date of Admission: 11/15/18 13:50 Attending physician: Florence Carvalho MD Consults: 11/15/18 12:45 Physician Consult Stat Comment: ESRD ON HD Consulting Provider: Jesus Phillips Consulting Physician: Jesus Phillips Reason for Consult: NEPRHOLOGY Time Spent in preparation of Discharge (in minutes): 20 Hospital Course - Lab Results Lab Results: Most Recent Lab Values WBC 7.1 K/uL (4.8-10.8) D 11/19/18 08:11 RBC 3.02 Mil/uL (3.80-5.20) L 11/19/18 08:11 Hgb 9.3 g/dL (11.0-16.0) L 11/19/18 08:11 Hct 28.5 % (34.0-47.0) L 11/19/18 08:11 MCV 94.5 fL (81.0-99.0) 11/19/18 08:11 MCH 30.9 pg (27.0-31.0) 11/19/18 08:11 MCHC 32.6 g/dL (33.0-37.0) L 11/19/18 08:11 RDW 16.1 % (11.5-14.5) H 11/19/18 08:11 Plt Count 296 K/uL (130-400) 11/19/18 08:11 MPV 7.7 fL (7.2-11.7) 11/19/18 08:11 Neut % (Auto) 56.0 % (50.0-75.0) 11/19/18 08:11 Lymph % (Auto) 21.9 % (20.0-40.0) 11/19/18 08:11 [place] % (Auto) 9.8 % (0.0-10.0) 11/19/18 08:11 Eos % (Auto) 11.0 % (0.0-4.0) H 11/19/18 08:11 Baso % (Auto) 1.3 % (0.0-2.0) 11/19/18 08:11 Neut # (Auto) 4.0 K/uL (1.8-7.0) 11/19/18 08:11 Lymph # (Auto) 1.6 K/uL (1.0-4.3) 11/19/18 08:11 [place] # (Auto) 0.7 K/uL (0.0-0.8) 11/19/18 08:11 Eos # (Auto) 0.8 K/uL (0.0-0.7) H 11/19/18 08:11 Baso # (Auto) 0.1 K/uL (0.0-0.2) 11/19/18 08:11 Sodium 133 mmol/L (132-148) 11/19/18 08:11 Potassium 5.0 mmol/L (3.6-5.2) 11/19/18 08:11 Chloride 93 mmol/L (98-107) L 11/19/18 08:11 Carbon Dioxide 29 mmol/L (22-30) 11/19/18 08:11 Anion Gap 16 (10-20) 11/19/18 08:11 BUN 39 mg/dL (7-17) H 11/19/18 08:11 Creatinine 6.6 mg/dL (0.7-1.2) H 11/19/18 08:11 Est GFR ( Amer) 9 11/19/18 08:11 Est GFR (Non-Af Amer) 7 11/19/18 08:11 POC Glucose (mg/dL) 212 mg/dL (65-110) H 11/19/18 06:31 Random Glucose 124 mg/dL (65-105) H D 11/19/18 08:11 Calcium 8.6 mg/dl (8.6-10.4) 11/19/18 08:11 Phosphorus 6.8 mg/dL (2.5-4.5) H 11/19/18 08:11 Magnesium 2.1 mg/dL (1.6-2.3) 11/19/18 08:11 Total Bilirubin 0.5 mg/dL (0.2-1.3) 11/19/18 08:11 AST 37 U/L (14-36) H 11/19/18 08:11 ALT 22 U/L (9-52) 11/19/18 08:11 Alkaline Phosphatase 128 U/L (38-126) H 11/19/18 08:11 Total Creatine Kinase 328 U/L (30-135) H 11/15/18 11:56 CK-MB (Mass) 2.98 ng/mL (0.0-3.38) 11/15/18 11:56 Troponin I 0.0210 ng/mL (0.00-0.120) 11/15/18 11:56 NT-Pro-B Natriuret Pep > 63056 pg/mL (0-450) H 11/15/18 11:56 Total Protein 7.4 g/dL (6.3-8.3) 11/19/18 08:11 Albumin 4.3 g/dL (3.5-5.0) 11/19/18 08:11 Globulin 3.1 gm/dL (2.2-3.9) 11/19/18 08:11 Albumin/Globulin Ratio 1.4 (1.0-2.1) 11/19/18 08:11 Lipase 112 U/L (23-300) 11/15/18 11:56 Beta HCG, Quant < 2.39 mIU/ML 11/15/18 11:56 Discharge Exam - Head Exam Head Exam: ATRAUMATIC, NORMAL INSPECTION, NORMOCEPHALIC Discharge Plan - Follow Up Plan Condition: GOOD Disposition: HOME/ ROUTINE Instructions: Heart Failure, Adult (DC), Gastroparesis (Delayed Gastric Emptying) (DC), Dialysis and Diet Additional Instructions: FOLLOW UP WITH DR Edilia CARVALHO IN HIS OFFICE CONTINUE HOME MEDICATION ACTIVITY TOLERATED CALL DR Edilia CARVALHO OR GO TO THE EMERGENCY ROOM IF SYMPTOM RETURN OR WORSENING Referrals: Jesus Phillips MD [Staff Provider] - Kim Carvalho MD [Staff Provider] -
[2018-11-22] MEDS ORDERED: Ergocalciferol 50,000 Intl Units Cap PO SCH (10:00)
== END 2018-11-19 12:59 | disposition home or self-care (01) ==
LOC: C.ER 09:28 → C.9E 13:50 → C.5S 15:34
PROVIDERS: ADMIT Internal Medicine Nephrology; ATTEND Internal Medicine Nephrology
DX: E11.43 Type 2 diabetes mellitus with diabetic autonomic (poly)neuropathy (principal); E11.22 Type 2 diabetes mellitus with diabetic chronic kidney disease; I13.2 Hypertensive heart and chronic kidney disease with heart failure and with stage 5 chronic kidney disease, or end stage renal disease; I50.9 Heart failure, unspecified; N18.6 End stage renal disease; Z99.2 Dependence on renal dialysis; E78.00 Pure hypercholesterolemia, unspecified; I25.10 Atherosclerotic heart disease of native coronary artery without angina pectoris; J45.909 Unspecified asthma, uncomplicated; G47.30 Sleep apnea, unspecified; E03.9 Hypothyroidism, unspecified; D63.1 Anemia in chronic kidney disease; E87.5 Hyperkalemia; Z95.5 Presence of coronary angioplasty implant and graft; K31.84 Gastroparesis; Z79.4 Long term (current) use of insulin
CPT/HCPCS: 36415; 71045; 71250; 80053; 82550; 82553; 82948; 83690; 83735; 83880; 84100; 84484; 84702; 85025; 85027; 90970; 93005; 94640; 96374; 99285; G0257; G0378; J1170; J1200; J1642; J1644; J2405; J2916; J3010; Q4081

== ENCOUNTER 2018-11-27 14:51 | Observation (INO) | payer MEDICAID ==
[2018-11-27 14:58] VITALS: BMI 29.2
--- NOTE | 2018-11-27 16:37 | C.PDOC ---
History Of Present Illness 31 y/o F c PMHx ESRD on HD (last HD today, went normally), Diabetic gastroparesis p/w abdominal pain since last night. Pain is diffuse, severe, constant, same as previous gastroparesis, associated with NB vomiting. Denies body pains, fever. Does not make urine. Time Seen by Provider: 11/27/18 15:00 Chief Complaint (Nursing): Abdominal Pain Past Medical History - Medical History PMH: Anemia, Anxiety, Asthma, Bronchitis, CHF, Diabetes, Fractures (LEFT FOOT), Gastritis, Gastrointestinal Ulcer (gastroparesis), Gall Bladder Disease, Hepatitis, HTN, Hypercholesterolemia, Hyperthyroidism, Hypothyroidism, Kidney Stones, Pancreatitis, Peripheral Edema, Pneumonia, End Stage Renal Disease, Chronic Kidney Disease, Seizures, Sleep Apnea, Chronic Pain Surgical History: Cholecystectomy, Coronary Stent (x1) - [facility] Procedures (10/30/18) ASSISTANCE WITH RESPIRATORY VENTILATION, 24-96 HRS, CPAP (11/27/16) CAUTERY TO STOP EPISTAX (03/22/14) CENTRAL VENOUS CATHETER PLACEMENT WITH GUIDANCE (11/06/14) DIALYSIS ARTERIOVENOSTOM (01/10/14) DILATION OF L INNOM VEIN WITH INTRALUM DEV, PERC APPROACH (09/24/18) DILATION OF LEFT SUBCLAVIAN VEIN, PERCUTANEOUS APPROACH (09/03/17) DRAINAGE OF RIGHT FOOT SKIN, EXTERNAL APPROACH (07/17/16) DRAINAGE OF RIGHT LOWER ARM SKIN, EXTERNAL APPROACH (05/25/16) ESOPHAGOGASTRODUODENOSCOPY [EGD] W/CLOSED BIOPSY (03/03/14) EXCISION OF LEFT TOE PHALANX, OPEN APPROACH (07/12/17) EXCISION OF STOMACH, ENDO, DIAGN (05/09/16) EXTIRPATE MATTER FROM R LOW ARM SUBCU/FASCIA, PERC (05/25/16) EXTRACTION OF RIGHT FOOT SKIN, EXTERNAL APPROACH (05/25/16) EXTRACTION OF TOE NAIL, EXTERNAL APPROACH (07/12/17) FLEXIBLE SIGMOIDOSCOPY (10/26/14) FLUOROSCOPY OF DIALYSIS SHUNT/FISTULA USING L OSM CONTRAST (09/24/18) FLUOROSCOPY OF LEFT SUBCLAVIAN VEIN USING OTHER CONTRAST (09/03/17) FLUOROSCOPY OF R JUGULAR VEIN USING L OSM CONTRAST, GUIDANCE (12/13/15) FLUOROSCOPY OF RIGHT SUBCLAVIAN VEIN, GUIDANCE (08/07/16) HEMODIALYSIS (04/05/15) INDIVIDUAL PSYCHOTHERAPY, SUPPORTIVE (10/12/18) INJECT INSULIN (12/23/12) INJECT/INFUSE ELECTROLYT (12/23/12) INJECT/INFUSE NEC (01/17/15) INSERT INFUSION DEV IN R INT JUGULAR VEIN, PERC (02/23/16) INSERT VAD RESERVOIR IN CHEST SUBCU/FASCIA, OPEN (08/19/17) INSERTION OF INFUSION DEV INTO R BASILIC VEIN, PERC APPROACH (04/18/16) INSERTION OF INFUSION DEV INTO R BRACH VEIN, PERC APPROACH (02/19/17) INSERTION OF INFUSION DEV INTO R SUBCLAV VEIN, PERC APPROACH (08/29/16) INSERTION OF INFUSION DEV INTO SUP VENA CAVA, PERC APPROACH (08/19/17) INSERTION OF INFUSION DEVICE INTO R ATRIUM, PERC APPROACH (12/13/15) INSERTION OF VAD INTO CHEST SUBCU/FASCIA, OPEN APPROACH (12/13/15) MEASURE OF CARDIAC SAMPL & PRESSURE, L HEART, PERC APPROACH (10/09/16) OTHER ENDOSCOPY OF SM INTEST (08/25/14) PACKED CELL TRANSFUSION (10/26/14) PERFORMANCE OF URINARY FILTRATION, MULTIPLE (03/19/17) PERFORMANCE OF URINARY FILTRATION, SINGLE (11/27/16) PLAIN RADIOGRAPHY OF LEFT HEART USING OTHER CONTRAST (10/09/16) PLAIN RADIOGRAPHY OF MULT COR ART USING OTH CONTRAST (10/09/16) PLICATION OF VENA CAVA (03/22/14) POST NASAL PAC FOR EPIST (03/22/14) REMOVAL OF VAD FROM TRUNK SUBCU/FASCIA, OPEN APPROACH (02/23/16) RESECTION OF TOE NAIL, EXTERNAL APPROACH (08/19/17) MELVIN KENNY DIALYSIS SHUNT (03/03/14) THERAPEUTIC ERYTHROCYTAPHERESIS (10/26/14) TRANSFUSE NONAUT RED BLOOD CELLS IN PERIPH VEIN, PERC (02/19/17) ULTRASONOGRAPHY OF RIGHT AND LEFT HEART, TRANSESOPHAGEAL (02/19/17) ULTRASONOGRAPHY OF RIGHT SUBCLAVIAN VEIN, GUIDANCE (08/29/16) ULTRASONOGRAPHY OF RIGHT UPPER EXTREMITY VEINS, GUIDANCE (02/19/17) VACCINATION NEC (10/26/14) VENOUS CATHETERIZATION FOR RENAL DIALYSIS (03/03/14) Family History: States: Unknown Family Hx - Social History Hx Tobacco Use: No Hx Alcohol Use: No Hx Substance Use: No - Immunization History Hx Tetanus Toxoid Vaccination: No Hx Influenza Vaccination: Yes Hx Pneumococcal Vaccination: Yes Review Of Systems Except As Marked, All Systems Reviewed And Found Negative. Constitutional: Negative for: Fever Cardiovascular: Negative for: Chest Pain Physical Exam - Physical Exam Additional Physical Exam Comments: Gen: Appears in distress secondary to pain, crouching at bedside, bouncing up and down. Head: Normocephalic, atraumatic. Eyes: PERRL. ENT: Moist mucous membranes. Neck: Supple. Chest: No tenderness. CV: Regular rate. Radial pulses 2+ bilaterally. Resp: Clear to auscultation bilaterally. Abd: Soft, nontender, nondistended. Extremities: No swelling or tenderness. Skin: No rash. Neuro: Alert, no focal deficit. ED Course And Treatment - Laboratory Results Result Diagrams: 11/27/18 16:55 11/27/18 16:55 Disposition - Disposition Disposition: HOSPITALIZED Disposition Time: 17:47 Condition: FAIR - Clinical Impression Clinical Impression: Intractable vomiting, Intractable abdominal pain
[2018-11-27] MEDS ORDERED: Sodium Chloride 0.9% 1,000 ML IV STA (16:38)
[2018-11-27] MEDS ORDERED: Sodium Chloride 0.9% 1,000 ML ONE (16:50)
[2018-11-27 17:10] LABS: BASO # 0.1 K/uL (0.0-0.2); BASO % 0.8 % (0.0-2.0); EOS # 0.8 K/uL (0.0-0.7); EOS % 9.6 % (0.0-4.0); LYMPH # 0.7 K/uL (1.0-4.3); LYMPH % 8.1 % (20.0-40.0); MEAN CORPUSCULAR HEMOGLOBIN 29.4 pg (27.0-31.0); MEAN CORPUSCULAR HGB CONC 31.9 g/dL (33.0-37.0); MEAN PLATELET VOLUME 7.8 fL (7.2-11.7); MONO # 0.4 K/uL (0.0-0.8); MONO % 5.3 % (0.0-10.0); NEUT # 6.3 K/uL (1.8-7.0); NEUT % 76.2 % (50.0-75.0); PLATELET COUNT 318 K/uL (130-400); RBC 3.95 Mil/uL (3.80-5.20); RED CELL DISTRIBUTION WIDTH 17.4 % (11.5-14.5); WHITE BLOOD COUNT 8.2 K/uL (4.8-10.8)
[2018-11-27 17:12] LABS: HEMOGLOBIN 11.6 g/dL (11.0-16.0)
[2018-11-27 17:15] LABS: ALB/GLOB RATIO 1.3 (1.0-2.1); ALBUMIN 4.4 g/dL (3.5-5.0); ALT/SGPT 31 U/L (9-52); AST/SGOT 35 U/L (14-36); BLOOD UREA NITROGEN 24 mg/dL (7-17); CALCIUM 8.9 mg/dl (8.6-10.4); GFR NON-AFRICAN AMERICAN 13; LIPASE 66 U/L (23-300)
[2018-11-27] MEDS ORDERED: DiphenhydrAMINE 50 mg/ml Inj ONE ×2 (18:54→20:16)
[2018-11-27 19:01] LABS: EOSINOPHIL 13 % (0-4); LYMPHOCYTE 9 % (20-40); MONOCYTE 4 % (0-10); NEUTROPHIL 74 % (50-75); TOTAL CELLS COUNTED 100
[2018-11-27 19:02] LABS: PLATELET ESTIMATE NORMAL (NORMAL)
[2018-11-27 19:03] LABS: ANISOCYTOSIS SLIGHT; HYPOCHROMIC SLIGHT
[2018-11-27] MEDS: DiphenhydrAMINE 50 mg/ml Inj IVP PRN ×2 (19:08→20:24)
--- NOTE | 2018-11-27 19:57 | CP.PCM.HP ---
Past Patient History - Infectious Disease Hx of Infectious Diseases: None - Tetanus Immunizations Tetanus Immunization: Unknown - Past Medical History & Family History Past Medical History?: Yes - Past Social History Smoking Status: Never Smoked - CARDIAC Hx Congestive Heart Failure: Yes Hx Hypercholesterolemia: Yes Hx Hypertension: Yes Hx Peripheral Edema: Yes - PULMONARY Hx Asthma: Yes Hx Bronchitis: Yes Hx Pneumonia: Yes Hx Sleep Apnea: Yes - NEUROLOGICAL Hx Seizures: Yes - HEENT Hx HEENT Problems: Yes Hx Cataracts: Yes (BOTH EYES) Hx Glaucoma: Yes (BOTH EYES) - RENAL Hx Chronic Kidney Disease: Yes Hx Kidney Stones: Yes - ENDOCRINE/METABOLIC Hx Hyperthyroidism: Yes Hx Hypothyroidism: Yes - HEMATOLOGICAL/ONCOLOGICAL Hx Anemia: Yes - INTEGUMENTARY Hx Dermatological Problems: Yes Other/Comment: DRY ITCHY SKIN ;multiple/generalized dark spots on skin. left toe blister - MUSCULOSKELETAL/RHEUMATOLOGICAL Hx Fractures: Yes (LEFT FOOT) - GASTROINTESTINAL Hx Gall Bladder Disease: Yes Hx Gastritis: Yes Hx Pancreatitis: Yes - PSYCHIATRIC Hx Anxiety: Yes Hx Substance Use: No - SURGICAL HISTORY Hx Cholecystectomy: Yes Hx Coronary Stent: Yes (x1) - ANESTHESIA Hx Anesthesia: Yes Hx Anesthesia Reactions: No Hx Malignant Hyperthermia: No Meds Allergies/Adverse Reactions: Allergies Allergy/AdvReac Type Severity Reaction Status Date / Time ketorolac tromethamine Allergy RASH Verified 11/15/18 09:37 [From Toradol] latex Allergy RASH Verified 11/15/18 09:37 morphine Allergy RASH Verified 11/15/18 09:37 tramadol Allergy RASH Verified 11/15/18 09:37 Physical Exam - Constitutional Appears: Well - Head Exam Head Exam: ATRAUMATIC, NORMAL INSPECTION, NORMOCEPHALIC - Eye Exam Eye Exam: EOMI, Normal appearance, PERRL Pupil Exam: NORMAL ACCOMODATION, PERRL - ENT Exam ENT Exam: Mucous Membranes Moist, Normal Exam - Neck Exam Neck exam: Positive for: Normal Inspection - Respiratory Exam Respiratory Exam: Decreased Breath Sounds - Cardiovascular Exam Cardiovascular Exam: REGULAR RHYTHM, +S1, +S2 - GI/Abdominal Exam GI & Abdominal Exam: Diminished Bowel Sounds, Soft - Rectal Exam Rectal Exam: Deferred - Neurological Exam Neurological exam: Oriented x3 Results - Vital Signs Recent Vital Signs: Last Vital Signs Temp 97 F L 11/27/18 19:22 Pulse 103 H 11/27/18 19:22 Resp 14 04/17/19 19:22 BP 232/118 H 11/27/18 19:24 Pulse Ox 97 11/27/18 19:22 - Labs Result Diagrams: 11/27/18 16:55 11/27/18 16:55 Labs: Laboratory Results - last 24 hr 11/27/18 11/27/18 16:55 16:55 WBC 8.2 RBC 3.95 Hgb 11.6 D Hct 36.4 MCV 92.0 D MCH 29.4 MCHC 31.9 L RDW 17.4 H Plt Count 318 MPV 7.8 Neut % (Auto) 76.2 H Lymph % (Auto) 8.1 L [place] % (Auto) 5.3 Eos % (Auto) 9.6 H Baso % (Auto) 0.8 Neut # (Auto) 6.3 Lymph # (Auto) 0.7 L [place] # (Auto) 0.4 Eos # (Auto) 0.8 H Baso # (Auto) 0.1 Neutrophils % (Manual) 74 Lymphocytes % (Manual) 9 L Monocytes % (Manual) 4 Eosinophils % (Manual) 13 H Platelet Estimate Normal Hypochromasia (manual) Slight Anisocytosis (manual) Slight Sodium 137 Potassium 3.5 L Chloride 95 L Carbon Dioxide 30 Anion Gap 16 BUN 24 H Creatinine 4.0 H Est GFR ( Amer) 16 Est GFR (Non-Af Amer) 13 Random Glucose 312 H D Calcium 8.9 Total Bilirubin 0.6 AST 35 ALT 31 Alkaline Phosphatase 155 H D Total Protein 7.7 Albumin 4.4 Globulin 3.4 Albumin/Globulin Ratio 1.3 Lipase 66 Beta HCG, Quant < 2.39
[2018-11-27] MEDS ORDERED: DiphenhydrAMINE 50 mg/ml Inj IVP STA (20:23)
[2018-11-27] MEDS ORDERED: HYDROmorphone 1 mg/ml ISec IVP STA (20:39)
[2018-11-27] MEDS ORDERED: Albuterol-Ipratrop 3 mg / 0.5 (3 ml) UD IH PRN (20:43)
[2018-11-27] MEDS ORDERED: Pantoprazole 20 mg EC Tab PO STA (21:58)
[2018-11-27] MEDS ORDERED: Pantoprazole 40 mg EC Tab PO ONE (22:21)
[2018-11-27] MEDS ORDERED: (Novolin R) Insulin Human Regular 100 units/ml vial ONE (22:32)
[2018-11-27] MEDS ORDERED: (Lantus) Insulin Glargine, Recombinant SC ONE (22:33)
[2018-11-27] MEDS: (Novolin R) Insulin Human Regular 100 units/ml vial SC SCH (22:36)
[2018-11-27] MEDS: (Lantus) Insulin Glargine, Recombinant SC SCH (22:37)
[2018-11-27] MEDS: Sucralfate 1 gm/10 ml Oral Susp UD PO SCH (23:11)
[2018-11-28] MEDS ORDERED: HYDROmorphone 1 mg/ml ISec IVP ONE (02:43)
[2018-11-28] MEDS: DiphenhydrAMINE 50 mg/ml Inj IVP PRN ×7 (03:12→22:44)
[2018-11-28] MEDS: (Novolin R) Insulin Human Regular 100 units/ml vial SC SCH ×4 (08:39→21:28)
[2018-11-28] MEDS ORDERED: Ergocalciferol 50,000 Intl Units Cap PO SCH (10:00)
[2018-11-28] MEDS ORDERED: Home Med 1 UNIT (Cholecalciferol [Vitamin D 1000 Iu] 1,000 UNIT) PO SCH (10:00)
[2018-11-28] MEDS ORDERED: CALCIUM ACETATE 667 MG PO SCH (10:00)
[2018-11-28] MEDS: Pantoprazole 40 mg EC Tab PO SCH (10:38)
[2018-11-28] MEDS: Sucralfate 1 gm/10 ml Oral Susp UD PO SCH ×4 (10:39→22:44)
--- NOTE | 2018-11-28 11:35 | CP.PCM.PN ---
Subjective - Date & Time of Evaluation Date of Evaluation: 11/28/18 - Subjective Subjective: patient examined at bedside today no nausea, no vomiting, no diarrhea Objective - Vital Signs/Intake and Output Vital Signs (last 24 hours): Temp Pulse Resp BP Pulse Ox 99.9 F H 114 H 20 158/91 H 98 11/28/18 08:00 11/28/18 08:00 11/28/18 08:00 11/28/18 08:00 11/28/18 08:00 - Medications Medications: Current Medications Albuterol/Ipratropium (Duoneb 3 Mg/0.5 Mg (3 Ml) Ud) 3 ml IH RQID PRN PRN Reason: Wheezing Amlodipine Besylate (Norvasc) 5 mg PO DAILY [facility] Last Admin: 11/28/18 10:39 Dose: 5 mg Aspirin (Ecotrin) 81 mg PO DAILY [facility] Last Admin: 11/28/18 10:38 Dose: 81 mg Calcium Acetate (Phoslo) 667 mg PO TID [facility] Last Admin: 11/28/18 10:43 Dose: Not Given Carvedilol (Coreg) 3.125 mg PO BID [facility] Last Admin: 11/28/18 10:39 Dose: 3.125 mg Clonidine HCl (Catapres) 0.3 mg PO BID [facility] Last Admin: 11/28/18 10:56 Dose: 0.3 mg Diphenhydramine HCl (Benadryl) 25 mg IVP Q3 PRN PRN Reason: Pain, severe (8-10) Last Admin: 11/28/18 10:41 Dose: 25 mg Docusate Sodium (Colace) 100 mg PO TID [facility] Last Admin: 11/28/18 10:39 Dose: 100 mg Ergocalciferol (Drisdol 50,000 Intl Units Cap) 1 cap PO QWK [facility] Last Admin: 11/28/18 10:39 Dose: 1 cap Gabapentin (Neurontin) 400 mg PO BID [facility] Last Admin: 11/28/18 10:40 Dose: 400 mg Heparin Sodium (Porcine) (Heparin) 5,000 units SC Q12 [facility] Last Admin: 11/28/18 10:40 Dose: Not Given Hydromorphone HCl (Dilaudid) 2 mg IVP Q3H PRN PRN Reason: Pain, moderate (4-7) Last Admin: 11/28/18 10:41 Dose: 2 mg Insulin Glargine (Lantus) 25 unit SC HS [facility] Last Admin: 11/27/18 22:37 Dose: 25 units Insulin Human Regular (Novolin R) 0 unit SC ACHS [facility]; Protocol Last Admin: 11/28/18 08:39 Dose: Not Given Metoclopramide HCl (Reglan) 10 mg PO BID PRN PRN Reason: Nausea/Vomiting Ondansetron HCl (Zofran Tab) 8 mg PO Q8H [facility] Last Admin: 11/28/18 04:08 Dose: 8 mg Pantoprazole Sodium (Protonix Ec Tab) 40 mg PO DAILY [facility] Last Admin: 11/28/18 10:38 Dose: 40 mg Sucralfate (Carafate Oral Susp) 1 gm PO QID [facility] Last Admin: 11/28/18 10:39 Dose: 1 gm - Labs Labs: 11/27/18 16:55 11/27/18 16:55 - Constitutional Appears: Well - Head Exam Head Exam: ATRAUMATIC, NORMAL INSPECTION, NORMOCEPHALIC - Eye Exam Eye Exam: EOMI, Normal appearance, PERRL Pupil Exam: NORMAL ACCOMODATION, PERRL - ENT Exam ENT Exam: Mucous Membranes Moist, Normal Exam - Neck Exam Neck Exam: Full ROM, Normal Inspection. absent: Lymphadenopathy - Respiratory Exam Respiratory Exam: Decreased Breath Sounds - Cardiovascular Exam Cardiovascular Exam: REGULAR RHYTHM, +S1, +S2 - GI/Abdominal Exam GI & Abdominal Exam: Soft, Diminished Bowel Sounds - Rectal Exam Rectal Exam: Deferred - Neurological Exam Neurological Exam: Oriented x3 Assessment and Plan - Assessment and Plan (Free Text) Plan: medications reviewed labs reviewed vitals reviewed benadryl carafate catapress colace coreg dilaudid drisdol duoneb ecotrin heparin lantus neurontin norvasc novolin phoslo protnix ec tab reglan zofran
[2018-11-28] MEDS: (Lantus) Insulin Glargine, Recombinant SC SCH (22:44)
[2018-11-29] MEDS: DiphenhydrAMINE 50 mg/ml Inj IVP PRN ×5 (01:46→14:36)
[2018-11-29] MEDS: (Novolin R) Insulin Human Regular 100 units/ml vial SC SCH ×2 (07:46→14:36)
[2018-11-29] MEDS ORDERED: DiphenhydrAMINE 50 mg/ml Inj IVP ONE (09:45)
[2018-11-29] MEDS: Sucralfate 1 gm/10 ml Oral Susp UD PO SCH ×2 (09:53→13:27)
[2018-11-29] MEDS: Pantoprazole 40 mg EC Tab PO SCH ×2 (09:54→13:27)
[2018-11-29 10:07] LABS: BASO % 0.3 % (0.0-2.0); EOS # 0.7 K/uL (0.0-0.7); EOS % 7.2 % (0.0-4.0); LYMPH # 1.8 K/uL (1.0-4.3); LYMPH % 19.5 % (20.0-40.0); MEAN CELL VOLUME 93.5 fL (81.0-99.0); MEAN CORPUSCULAR HEMOGLOBIN 30.7 pg (27.0-31.0); MEAN CORPUSCULAR HGB CONC 32.8 g/dL (33.0-37.0); MEAN PLATELET VOLUME 7.6 fL (7.2-11.7); MONO # 0.9 K/uL (0.0-0.8); MONO % 10.1 % (0.0-10.0); NEUT # 5.8 K/uL (1.8-7.0); NEUT % 62.9 % (50.0-75.0); NRBC % 0.1 % (0.0-2.0); RBC 3.08 Mil/uL (3.80-5.20); RED CELL DISTRIBUTION WIDTH 16.8 % (11.5-14.5); WHITE BLOOD COUNT 9.1 K/uL (4.8-10.8)
[2018-11-29 10:17] LABS: HEMOGLOBIN 9.4 g/dL (11.0-16.0)
[2018-11-29 10:19] LABS: ALB/GLOB RATIO 1.4 (1.0-2.1); ALBUMIN 4.3 g/dL (3.5-5.0); CALCIUM 9.3 mg/dl (8.6-10.4)
--- NOTE | 2018-11-29 11:10 | CP.PCM.CON ---
History of Present Illness - History of Present Illness History of Present Illness: REASONS FOR CONSULT : ESRD ON HD M W F AND SAT FLIUD OVER LOAD .. ULMONARY EDEMA .. CHF PT WAS SEEN AND EXAMINED .. WELL KNOWN TO ME 31 y/o F c PMHx ESRD on HD (last HD today, went normally), Diabetic gastroparesis p/w abdominal pain since last night. Pain is diffuse, severe, constant, same as previous gastroparesis, associated with NB vomiting. Denies body pains, fever. Does not make urine. Time Seen by Provider: 11/27/18 15:00 Chief Complaint (Nursing): Abdominal Pain Past Medical History - Medical History PMH: Anemia, Anxiety, Asthma, Bronchitis, CHF, Diabetes, Fractures (LEFT FOOT), Gastritis, Gastrointestinal Ulcer (gastroparesis), Gall Bladder Disease, Hepatitis, HTN, Hypercholesterolemia, Hyperthyroidism, Hypothyroidism, Kidney Stones, Pancreatitis, Peripheral Edema, Pneumonia, End Stage Renal Disease, Chronic Kidney Disease, Seizures, Sleep Apnea, Chronic Pain Surgical History: Cholecystectomy, Coronary Stent (x1) - [facility] Procedures Past Patient History - Infectious Disease Hx of Infectious Diseases: None - Tetanus Immunizations Tetanus Immunization: Unknown - Past Medical History & Family History Past Medical History?: Yes - Past Social History Smoking Status: Former Smoker - CARDIAC Hx Congestive Heart Failure: Yes Hx Hypercholesterolemia: Yes Hx Hypertension: Yes Hx Peripheral Edema: Yes - PULMONARY Hx Asthma: Yes Hx Bronchitis: Yes Hx Pneumonia: Yes Hx Sleep Apnea: Yes - NEUROLOGICAL Hx Seizures: Yes - HEENT Hx HEENT Problems: Yes Hx Cataracts: Yes (BOTH EYES) Hx Glaucoma: Yes (BOTH EYES) - RENAL Hx Chronic Kidney Disease: Yes Date of Last Dialysis Treatment: 11/27/18 Hx Kidney Stones: Yes - ENDOCRINE/METABOLIC Hx Hyperthyroidism: Yes Hx Hypothyroidism: Yes - HEMATOLOGICAL/ONCOLOGICAL Hx Anemia: Yes - INTEGUMENTARY Hx Dermatological Problems: Yes Other/Comment: DRY ITCHY SKIN ;multiple/generalized dark spots on skin. left toe blister - MUSCULOSKELETAL/RHEUMATOLOGICAL Hx Falls: No Hx Fractures: Yes (LEFT FOOT) - GASTROINTESTINAL Hx Gall Bladder Disease: Yes Hx Gastritis: Yes Hx Pancreatitis: Yes - PSYCHIATRIC Hx Anxiety: Yes Hx Substance Use: No - SURGICAL HISTORY Hx Cholecystectomy: Yes Hx Coronary Stent: Yes (x1) - ANESTHESIA Hx Anesthesia: Yes Hx Anesthesia Reactions: No Hx Malignant Hyperthermia: No Meds Allergies/Adverse Reactions: Allergies Allergy/AdvReac Type Severity Reaction Status Date / Time ketorolac tromethamine Allergy RASH Verified 11/15/18 09:37 [From Toradol] latex Allergy RASH Verified 11/15/18 09:37 morphine Allergy RASH Verified 11/15/18 09:37 tramadol Allergy RASH Verified 11/15/18 09:37 - Medications Medications: Current Medications Albuterol/Ipratropium (Duoneb 3 Mg/0.5 Mg (3 Ml) Ud) 3 ml IH RQID PRN PRN Reason: Wheezing Amlodipine Besylate (Norvasc) 5 mg PO DAILY [facility] Last Admin: 11/29/18 10:10 Dose: Not Given Aspirin (Ecotrin) 81 mg PO DAILY [facility] Last Admin: 11/29/18 09:54 Dose: Not Given Calcium Acetate (Phoslo) 667 mg PO TID [facility] Last Admin: 11/29/18 09:54 Dose: Not Given Carvedilol (Coreg) 3.125 mg PO BID [facility] Last Admin: 11/29/18 09:53 Dose: Not Given Clonidine HCl (Catapres) 0.3 mg PO BID [facility] Last Admin: 11/29/18 09:53 Dose: Not Given Diphenhydramine HCl (Benadryl) 25 mg IVP Q3 PRN PRN Reason: Pain, severe (8-10) Last Admin: 11/29/18 08:25 Dose: 25 mg Docusate Sodium (Colace) 100 mg PO TID [facility] Last Admin: 11/29/18 09:53 Dose: Not Given Ergocalciferol (Drisdol 50,000 Intl Units Cap) 1 cap PO QWK [facility] Last Admin: 11/28/18 10:39 Dose: 1 cap Gabapentin (Neurontin) 400 mg PO BID [facility] Last Admin: 11/29/18 09:54 Dose: Not Given Heparin Sodium (Porcine) (Heparin) 5,000 units SC Q12 [facility] Last Admin: 11/29/18 09:54 Dose: Not Given Hydromorphone HCl (Dilaudid) 2 mg IVP Q3H PRN PRN Reason: Pain, moderate (4-7) Last Admin: 11/29/18 08:26 Dose: 2 mg Insulin Glargine (Lantus) 25 unit SC HS [facility] Last Admin: 11/28/18 22:44 Dose: 25 units Insulin Human Regular (Novolin R) 0 unit SC ACHS [facility]; Protocol Last Admin: 11/29/18 07:46 Dose: Not Given Metoclopramide HCl (Reglan) 10 mg PO BID PRN PRN Reason: Nausea/Vomiting Ondansetron HCl (Zofran Tab) 8 mg PO Q8H [facility] Last Admin: 11/29/18 05:33 Dose: 8 mg Pantoprazole Sodium (Protonix Ec Tab) 40 mg PO DAILY [facility] Last Admin: 11/29/18 09:54 Dose: Not Given Sucralfate (Carafate Oral Susp) 1 gm PO QID [facility] Last Admin: 11/29/18 09:53 Dose: Not Given Results - Vital Signs Recent Vital Signs: Last Vital Signs Temp 98 F 11/29/18 09:50 Pulse 98 H 11/29/18 10:37 Resp 18 11/29/18 10:37 BP 149/104 H 11/29/18 10:50 Pulse Ox 99 11/29/18 09:50 - Labs Result Diagrams: 11/29/18 09:56 11/29/18 09:56 Labs: Laboratory Results - last 24 hr 11/28/18 11/28/18 11/28/18 12:08 16:32 21:10 WBC RBC Hgb Hct MCV MCH MCHC RDW Plt Count MPV Neut % (Auto) Lymph % (Auto) [place] % (Auto) Eos % (Auto) Baso % (Auto) Neut # (Auto) Lymph # (Auto) [place] # (Auto) Eos # (Auto) Baso # (Auto) Sodium Potassium Chloride Carbon Dioxide Anion Gap BUN Creatinine Est GFR ( Amer) Est GFR (Non-Af Amer) POC Glucose (mg/dL) 113 H 120 H 172 H Random Glucose Calcium Total Bilirubin AST ALT Alkaline Phosphatase Total Protein Albumin Globulin Albumin/Globulin Ratio 11/29/18 11/29/18 11/29/18 06:33 09:56 09:56 WBC 9.1 RBC 3.08 L Hgb 9.4 L D Hct 28.8 L MCV 93.5 MCH 30.7 MCHC 32.8 L RDW 16.8 H Plt Count 415 H MPV 7.6 Neut % (Auto) 62.9 Lymph % (Auto) 19.5 L [place] % (Auto) 10.1 H Eos % (Auto) 7.2 H Baso % (Auto) 0.3 Neut # (Auto) 5.8 Lymph # (Auto) 1.8 [place] # (Auto) 0.9 H Eos # (Auto) 0.7 Baso # (Auto) 0.0 Sodium 136 Potassium 4.6 Chloride 94 L Carbon Dioxide 25 Anion Gap 21 H BUN 46 H Creatinine 8.0 H* D Est GFR ( Amer) 7 Est GFR (Non-Af Amer) 6 POC Glucose (mg/dL) 119 H Random Glucose 102 D Calcium 9.3 Total Bilirubin 0.4 AST 96 H D ALT 26 Alkaline Phosphatase 133 H Total Protein 7.3 Albumin 4.3 Globulin 3.0 Albumin/Globulin Ratio 1.4 Assessment & Plan - Assessment and Plan (Free Text) Assessment: ESRD ON HD M FW F AND SAT ANEMIA OF CKD F OVERLOAD .. P EDEMA .. CHF MMP P: ON HD [facility]CKOY NOW C/O CURRENT CARE C/O PRESENT MANAGEMENT - Date & Time Date: 11/29/18 Time: 11:00
--- NOTE | 2018-11-29 13:06 | CP.PCM.PN ---
Subjective - Date & Time of Evaluation Date of Evaluation: 11/29/18 - Subjective Subjective: patient seen today no nausea no vomitng no diarrhea no fever no dizziness no shortness of breath Objective - Vital Signs/Intake and Output Vital Signs (last 24 hours): Temp Pulse Resp BP Pulse Ox 98 F 98 H 18 141/70 99 11/29/18 09:50 11/29/18 10:37 11/29/18 10:37 11/29/18 12:20 11/29/18 09:50 Intake and Output: 11/29/18 11/29/18 06:59 18:59 Intake Total 600 Balance 600 - Medications Medications: Current Medications Albuterol/Ipratropium (Duoneb 3 Mg/0.5 Mg (3 Ml) Ud) 3 ml IH RQID PRN PRN Reason: Wheezing Amlodipine Besylate (Norvasc) 5 mg PO DAILY [facility] Last Admin: 11/29/18 10:10 Dose: Not Given Aspirin (Ecotrin) 81 mg PO DAILY [facility] Last Admin: 11/29/18 09:54 Dose: Not Given Calcium Acetate (Phoslo) 667 mg PO TID [facility] Last Admin: 11/29/18 09:54 Dose: Not Given Carvedilol (Coreg) 3.125 mg PO BID [facility] Last Admin: 11/29/18 09:53 Dose: Not Given Clonidine HCl (Catapres) 0.3 mg PO BID [facility] Last Admin: 11/29/18 09:53 Dose: Not Given Diphenhydramine HCl (Benadryl) 25 mg IVP Q3 PRN PRN Reason: Pain, severe (8-10) Last Admin: 11/29/18 11:41 Dose: 25 mg Docusate Sodium (Colace) 100 mg PO TID [facility] Last Admin: 11/29/18 09:53 Dose: Not Given Ergocalciferol (Drisdol 50,000 Intl Units Cap) 1 cap PO QWK [facility] Last Admin: 11/28/18 10:39 Dose: 1 cap Gabapentin (Neurontin) 400 mg PO BID [facility] Last Admin: 11/29/18 09:54 Dose: Not Given Heparin Sodium (Porcine) (Heparin) 5,000 units SC Q12 [facility] Last Admin: 11/29/18 09:54 Dose: Not Given Hydromorphone HCl (Dilaudid) 2 mg IVP Q3H PRN PRN Reason: Pain, moderate (4-7) Last Admin: 11/29/18 11:40 Dose: 2 mg Insulin Glargine (Lantus) 25 unit SC HS [facility] Last Admin: 11/28/18 22:44 Dose: 25 units Insulin Human Regular (Novolin R) 0 unit SC ACHS [facility]; Protocol Last Admin: 11/29/18 07:46 Dose: Not Given Metoclopramide HCl (Reglan) 10 mg PO BID PRN PRN Reason: Nausea/Vomiting Ondansetron HCl (Zofran Tab) 8 mg PO Q8H [facility] Last Admin: 11/29/18 05:33 Dose: 8 mg Pantoprazole Sodium (Protonix Ec Tab) 40 mg PO DAILY [facility] Last Admin: 11/29/18 09:54 Dose: Not Given Sucralfate (Carafate Oral Susp) 1 gm PO QID [facility] Last Admin: 11/29/18 09:53 Dose: Not Given - Labs Labs: 11/29/18 09:56 11/29/18 09:56 - Constitutional Appears: Well - Head Exam Head Exam: ATRAUMATIC, NORMAL INSPECTION, NORMOCEPHALIC - Eye Exam Eye Exam: EOMI, Normal appearance, PERRL Pupil Exam: NORMAL ACCOMODATION, PERRL - ENT Exam ENT Exam: Mucous Membranes Moist, Normal Exam - Neck Exam Neck Exam: Full ROM, Normal Inspection. absent: Lymphadenopathy - Respiratory Exam Respiratory Exam: Decreased Breath Sounds - Cardiovascular Exam Cardiovascular Exam: REGULAR RHYTHM, +S1, +S2 - GI/Abdominal Exam GI & Abdominal Exam: Soft, Diminished Bowel Sounds - Rectal Exam Rectal Exam: Deferred - Neurological Exam Neurological Exam: Oriented x3 Assessment and Plan - Assessment and Plan (Free Text) Plan: medications reviewed labs reviewed vitals reviewed
--- NOTE | 2018-11-29 14:03 | CP.PCM.PN ---
Subjective - Date & Time of Evaluation Date of Evaluation: 11/29/18 Time of Evaluation: 14:02 - Subjective Subjective: patient seen and examined at the bedside Objective - Vital Signs/Intake and Output Vital Signs (last 24 hours): Temp Pulse Resp BP Pulse Ox 97.9 F 102 H 16 135/90 100 11/29/18 12:50 11/29/18 12:50 11/29/18 12:50 11/29/18 12:50 11/29/18 12:50 Intake and Output: 11/29/18 11/29/18 06:59 18:59 Intake Total 600 300 Balance 600 300 - Medications Medications: Current Medications Albuterol/Ipratropium (Duoneb 3 Mg/0.5 Mg (3 Ml) Ud) 3 ml IH RQID PRN PRN Reason: Wheezing Amlodipine Besylate (Norvasc) 5 mg PO DAILY [facility] Last Admin: 11/29/18 13:28 Dose: 5 mg Aspirin (Ecotrin) 81 mg PO DAILY [facility] Last Admin: 11/29/18 13:27 Dose: 81 mg Calcium Acetate (Phoslo) 667 mg PO TID [facility] Last Admin: 11/29/18 13:27 Dose: 667 mg Carvedilol (Coreg) 3.125 mg PO BID [facility] Last Admin: 11/29/18 09:53 Dose: Not Given Clonidine HCl (Catapres) 0.3 mg PO BID [facility] Last Admin: 11/29/18 09:53 Dose: Not Given Diphenhydramine HCl (Benadryl) 25 mg IVP Q3 PRN PRN Reason: Pain, severe (8-10) Last Admin: 11/29/18 11:41 Dose: 25 mg Docusate Sodium (Colace) 100 mg PO TID [facility] Last Admin: 11/29/18 13:28 Dose: 100 mg Ergocalciferol (Drisdol 50,000 Intl Units Cap) 1 cap PO QWK [facility] Last Admin: 11/28/18 10:39 Dose: 1 cap Gabapentin (Neurontin) 400 mg PO BID [facility] Last Admin: 11/29/18 09:54 Dose: Not Given Heparin Sodium (Porcine) (Heparin) 5,000 units SC Q12 [facility] Last Admin: 11/29/18 09:54 Dose: Not Given Hydromorphone HCl (Dilaudid) 2 mg IVP Q3H PRN PRN Reason: Pain, moderate (4-7) Last Admin: 11/29/18 11:40 Dose: 2 mg Insulin Glargine (Lantus) 25 unit SC HS [facility] Last Admin: 11/28/18 22:44 Dose: 25 units Insulin Human Regular (Novolin R) 0 unit SC ACHS [facility]; Protocol Last Admin: 11/29/18 07:46 Dose: Not Given Metoclopramide HCl (Reglan) 10 mg PO BID PRN PRN Reason: Nausea/Vomiting Ondansetron HCl (Zofran Tab) 8 mg PO Q8H [facility] Last Admin: 11/29/18 13:28 Dose: 8 mg Pantoprazole Sodium (Protonix Ec Tab) 40 mg PO DAILY [facility] Last Admin: 11/29/18 13:27 Dose: 40 mg Sucralfate (Carafate Oral Susp) 1 gm PO QID [facility] Last Admin: 11/29/18 13:27 Dose: 1 gm - Labs Labs: 11/29/18 09:56 11/29/18 09:56 Assessment and Plan - Assessment and Plan (Free Text) Assessment: FOLLOW UP WITH DR Edilia CARVALHO IN HIS OFFICE ----CALL FOR APPOINTMENT CONTINUE HOME MEDICATION ACTIVITY TOLERATED AND HEMODIALYSIS SCHEDULED CALL DR Edilia CARVALHO OR GO TO THE EMERGENCY ROOM IF SYMPTOM RETURN OR WORSENING
[2018-11-29 16:06] VITALS: BP 171/97; PULSE 100; RESP 18; TEMP 98.6; O2SAT 97
--- NOTE | 2018-11-29 19:07 | CP.PCM.DIS ---
Provider - Provider Date of Admission: 11/27/18 17:19 Attending physician: Florence Carvalho MD Consults: 11/27/18 21:59 Nephrology Consult Routine Comment: dialysis/hypertension Consulting Provider: Jesus Phillips Consulting Physician: Jesus Phillips Reason for Consult: hypertension/dialysis Time Spent in preparation of Discharge (in minutes): 10 Hospital Course - Lab Results Lab Results: Most Recent Lab Values WBC 9.1 K/uL (4.8-10.8) 11/29/18 09:56 RBC 3.08 Mil/uL (3.80-5.20) L 11/29/18 09:56 Hgb 9.4 g/dL (11.0-16.0) L D 11/29/18 09:56 Hct 28.8 % (34.0-47.0) L 11/29/18 09:56 MCV 93.5 fL (81.0-99.0) 11/29/18 09:56 MCH 30.7 pg (27.0-31.0) 11/29/18 09:56 MCHC 32.8 g/dL (33.0-37.0) L 11/29/18 09:56 RDW 16.8 % (11.5-14.5) H 11/29/18 09:56 Plt Count 415 K/uL (130-400) H 11/29/18 09:56 MPV 7.6 fL (7.2-11.7) 11/29/18 09:56 Neut % (Auto) 62.9 % (50.0-75.0) 11/29/18 09:56 Lymph % (Auto) 19.5 % (20.0-40.0) L 11/29/18 09:56 [place] % (Auto) 10.1 % (0.0-10.0) H 11/29/18 09:56 Eos % (Auto) 7.2 % (0.0-4.0) H 11/29/18 09:56 Baso % (Auto) 0.3 % (0.0-2.0) 11/29/18 09:56 Neut # (Auto) 5.8 K/uL (1.8-7.0) 11/29/18 09:56 Lymph # (Auto) 1.8 K/uL (1.0-4.3) 11/29/18 09:56 [place] # (Auto) 0.9 K/uL (0.0-0.8) H 11/29/18 09:56 Eos # (Auto) 0.7 K/uL (0.0-0.7) 11/29/18 09:56 Baso # (Auto) 0.0 K/uL (0.0-0.2) 11/29/18 09:56 Neutrophils % (Manual) 74 % (50-75) 11/27/18 16:55 Lymphocytes % (Manual) 9 % (20-40) L 11/27/18 16:55 Monocytes % (Manual) 4 % (0-10) 11/27/18 16:55 Eosinophils % (Manual) 13 % (0-4) H 11/27/18 16:55 Platelet Estimate Normal (NORMAL) 11/27/18 16:55 Hypochromasia (manual) Slight 11/27/18 16:55 Anisocytosis (manual) Slight 11/27/18 16:55 Sodium 136 mmol/L (132-148) 11/29/18 09:56 Potassium 4.6 mmol/L (3.6-5.2) 11/29/18 09:56 Chloride 94 mmol/L (98-107) L 11/29/18 09:56 Carbon Dioxide 25 mmol/L (22-30) 11/29/18 09:56 Anion Gap 21 (10-20) H 11/29/18 09:56 BUN 46 mg/dL (7-17) H 11/29/18 09:56 Creatinine 8.0 mg/dL (0.7-1.2) H* D 11/29/18 09:56 Est GFR ( Amer) 7 11/29/18 09:56 Est GFR (Non-Af Amer) 6 11/29/18 09:56 POC Glucose (mg/dL) 164 mg/dL (65-110) H 11/29/18 16:19 Random Glucose 102 mg/dL (65-105) D 11/29/18 09:56 Calcium 9.3 mg/dl (8.6-10.4) 11/29/18 09:56 Total Bilirubin 0.4 mg/dL (0.2-1.3) 11/29/18 09:56 AST 96 U/L (14-36) H D 11/29/18 09:56 ALT 26 U/L (9-52) 11/29/18 09:56 Alkaline Phosphatase 133 U/L (38-126) H 11/29/18 09:56 Total Protein 7.3 g/dL (6.3-8.3) 11/29/18 09:56 Albumin 4.3 g/dL (3.5-5.0) 11/29/18 09:56 Globulin 3.0 gm/dL (2.2-3.9) 11/29/18 09:56 Albumin/Globulin Ratio 1.4 (1.0-2.1) 11/29/18 09:56 Lipase 66 U/L (23-300) 11/27/18 16:55 Beta HCG, Quant < 2.39 mIU/ML 11/27/18 16:55 Discharge Exam - Head Exam Head Exam: ATRAUMATIC, NORMAL INSPECTION, NORMOCEPHALIC Discharge Plan - Follow Up Plan Condition: GOOD Disposition: HOME/ ROUTINE Instructions: Dialysis Diet , Hemodialysis (DC), Nausea and Vomiting, Adult (DC), Gastroparesis (Delayed Gastric Emptying) (DC) Additional Instructions: FOLLOW UP WITH DR Edilia CARVALHO IN HIS OFFICE ----CALL FOR APPOINTMENT CONTINUE HOME MEDICATION ACTIVITY TOLERATED AND HEMODIALYSIS SCHEDULED CALL DR Edilia CARVALHO OR GO TO THE EMERGENCY ROOM IF SYMPTOM RETURN OR WORSENING Referrals: Jesus Phillips MD [Staff Provider] - Kim Carvalho MD [Staff Provider] -
== END 2018-11-29 17:20 | disposition home or self-care (01) ==
LOC: C.ER 14:51 → C.9E 17:19 → C.3T 21:42 → C.5S 11-28 01:17
PROVIDERS: ADMIT Internal Medicine Nephrology; ATTEND Internal Medicine Nephrology
DX: E11.43 Type 2 diabetes mellitus with diabetic autonomic (poly)neuropathy (principal); I13.2 Hypertensive heart and chronic kidney disease with heart failure and with stage 5 chronic kidney disease, or end stage renal disease; E11.22 Type 2 diabetes mellitus with diabetic chronic kidney disease; I50.9 Heart failure, unspecified; N18.6 End stage renal disease; Z99.2 Dependence on renal dialysis; E78.00 Pure hypercholesterolemia, unspecified; D63.1 Anemia in chronic kidney disease; E03.9 Hypothyroidism, unspecified; G47.30 Sleep apnea, unspecified; K31.84 Gastroparesis; Z90.49 Acquired absence of other specified parts of digestive tract; Z95.5 Presence of coronary angioplasty implant and graft; J45.909 Unspecified asthma, uncomplicated; Z79.4 Long term (current) use of insulin
CPT/HCPCS: 36415; 80053; 82948; 83690; 84702; 85025; 96372; 96374; 99285; G0257; G0378; J0360; J1170; J1200; J1642; J2060; J2405; J3010; J7030

== ENCOUNTER 2018-12-06 09:53 | Observation (INO) | payer MEDICAID ==
[2018-12-06 09:59] VITALS: BMI 30.2
[2018-12-06] MEDS ORDERED: DiphenhydrAMINE 50 mg/ml Inj IVP STA (10:14)
[2018-12-06] MEDS ORDERED: DiphenhydrAMINE 50 mg/ml Inj ONE (10:27)
[2018-12-06 10:42] LABS: BASO # 0.1 K/uL (0.0-0.2); EOS # 0.7 K/uL (0.0-0.7); EOS % 6.9 % (0.0-4.0); HEMOGLOBIN 9.5 g/dL (11.0-16.0); LYMPH # 1.2 K/uL (1.0-4.3); LYMPH % 11.2 % (20.0-40.0); MEAN CELL VOLUME 93.5 fL (81.0-99.0); MEAN CORPUSCULAR HEMOGLOBIN 30.3 pg (27.0-31.0); MEAN CORPUSCULAR HGB CONC 32.4 g/dL (33.0-37.0); MEAN PLATELET VOLUME 7.9 fL (7.2-11.7); MONO # 0.9 K/uL (0.0-0.8); MONO % 8.5 % (0.0-10.0); NEUT # 7.5 K/uL (1.8-7.0); NEUT % 72.4 % (50.0-75.0); RBC 3.14 Mil/uL (3.80-5.20); RED CELL DISTRIBUTION WIDTH 17.4 % (11.5-14.5); WHITE BLOOD COUNT 10.3 K/uL (4.8-10.8)
--- NOTE | 2018-12-06 11:05 | C.PDOC ---
History Of Present Illness 32 y/o female presents to the ER c/o nausea, vomiting, abdominal pain, mild SOB and chills for x3 days. Pt completed some dialysis on 12/04 and is due for HD today. She denies chest pain, diarrhea, cough, sore throat, ear pain, sick c ontacts. Time Seen by Provider: 12/06/18 09:56 Chief Complaint (Nursing): Abdominal Pain History Per: Patient History/Exam Limitations: no limitations Onset/Duration Of Symptoms: Days (x3) Current Symptoms Are (Timing): Still Present Severity: Moderate Location Of Pain/Discomfort: Epigastric Quality Of Discomfort: "Pain" Associated Symptoms: Chills, Nausea, Vomiting Past Medical History Reviewed: Historical Data, Nursing Documentation, Vital Signs Vital Signs: Last Vital Signs Temp 99 F 12/06/18 09:56 Pulse 118 H 12/06/18 09:56 Resp 22 12/06/18 09:56 BP 193/150 H 12/06/18 09:56 Pulse Ox 95 12/06/18 09:56 - Medical History PMH: Anemia, Anxiety, Asthma, Bronchitis, CHF, Diabetes, Fractures (LEFT FOOT), Gastritis, Gastrointestinal Ulcer (gastroparesis), Gall Bladder Disease, Hepatitis, HTN, Hypercholesterolemia, Hyperthyroidism, Hypothyroidism, Kidney Stones, Pancreatitis, Peripheral Edema, Pneumonia, End Stage Renal Disease, Chronic Kidney Disease, Seizures, Sleep Apnea, Chronic Pain Surgical History: Cholecystectomy, Coronary Stent (x1) - [facility] Procedures (10/30/18) ASSISTANCE WITH RESPIRATORY VENTILATION, 24-96 HRS, CPAP (11/27/16) CAUTERY TO STOP EPISTAX (03/22/14) CENTRAL VENOUS CATHETER PLACEMENT WITH GUIDANCE (11/06/14) DIALYSIS ARTERIOVENOSTOM (01/10/14) DILATION OF L INNOM VEIN WITH INTRALUM DEV, PERC APPROACH (09/24/18) DILATION OF LEFT SUBCLAVIAN VEIN, PERCUTANEOUS APPROACH (09/03/17) DRAINAGE OF RIGHT FOOT SKIN, EXTERNAL APPROACH (07/17/16) DRAINAGE OF RIGHT LOWER ARM SKIN, EXTERNAL APPROACH (05/25/16) ESOPHAGOGASTRODUODENOSCOPY [EGD] W/CLOSED BIOPSY (03/03/14) EXCISION OF LEFT TOE PHALANX, OPEN APPROACH (07/12/17) EXCISION OF STOMACH, ENDO, DIAGN (05/09/16) EXTIRPATE MATTER FROM R LOW ARM SUBCU/FASCIA, PERC (05/25/16) EXTRACTION OF RIGHT FOOT SKIN, EXTERNAL APPROACH (05/25/16) EXTRACTION OF TOE NAIL, EXTERNAL APPROACH (07/12/17) FLEXIBLE SIGMOIDOSCOPY (10/26/14) FLUOROSCOPY OF DIALYSIS SHUNT/FISTULA USING L OSM CONTRAST (09/24/18) FLUOROSCOPY OF LEFT SUBCLAVIAN VEIN USING OTHER CONTRAST (09/03/17) FLUOROSCOPY OF R JUGULAR VEIN USING L OSM CONTRAST, GUIDANCE (12/13/15) FLUOROSCOPY OF RIGHT SUBCLAVIAN VEIN, GUIDANCE (08/07/16) HEMODIALYSIS (04/05/15) INDIVIDUAL PSYCHOTHERAPY, SUPPORTIVE (10/12/18) INJECT INSULIN (12/23/12) INJECT/INFUSE ELECTROLYT (12/23/12) INJECT/INFUSE NEC (01/17/15) INSERT INFUSION DEV IN R INT JUGULAR VEIN, PERC (02/23/16) INSERT VAD RESERVOIR IN CHEST SUBCU/FASCIA, OPEN (08/19/17) INSERTION OF INFUSION DEV INTO R BASILIC VEIN, PERC APPROACH (04/18/16) INSERTION OF INFUSION DEV INTO R BRACH VEIN, PERC APPROACH (02/19/17) INSERTION OF INFUSION DEV INTO R SUBCLAV VEIN, PERC APPROACH (08/29/16) INSERTION OF INFUSION DEV INTO SUP VENA CAVA, PERC APPROACH (08/19/17) INSERTION OF INFUSION DEVICE INTO R ATRIUM, PERC APPROACH (12/13/15) INSERTION OF VAD INTO CHEST SUBCU/FASCIA, OPEN APPROACH (12/13/15) MEASURE OF CARDIAC SAMPL & PRESSURE, L HEART, PERC APPROACH (10/09/16) OTHER ENDOSCOPY OF SM INTEST (08/25/14) PACKED CELL TRANSFUSION (10/26/14) PERFORMANCE OF URINARY FILTRATION, MULTIPLE (03/19/17) PERFORMANCE OF URINARY FILTRATION, SINGLE (11/27/16) PLAIN RADIOGRAPHY OF LEFT HEART USING OTHER CONTRAST (10/09/16) PLAIN RADIOGRAPHY OF MULT COR ART USING OTH CONTRAST (10/09/16) PLICATION OF VENA CAVA (03/22/14) POST NASAL PAC FOR EPIST (03/22/14) REMOVAL OF VAD FROM TRUNK SUBCU/FASCIA, OPEN APPROACH (02/23/16) RESECTION OF TOE NAIL, EXTERNAL APPROACH (08/19/17) MELVIN KENNY DIALYSIS SHUNT (03/03/14) THERAPEUTIC ERYTHROCYTAPHERESIS (10/26/14) TRANSFUSE NONAUT RED BLOOD CELLS IN PERIPH VEIN, PERC (02/19/17) ULTRASONOGRAPHY OF RIGHT AND LEFT HEART, TRANSESOPHAGEAL (02/19/17) ULTRASONOGRAPHY OF RIGHT SUBCLAVIAN VEIN, GUIDANCE (08/29/16) ULTRASONOGRAPHY OF RIGHT UPPER EXTREMITY VEINS, GUIDANCE (02/19/17) VACCINATION NEC (10/26/14) VENOUS CATHETERIZATION FOR RENAL DIALYSIS (03/03/14) Family History: States: No Known Family Hx - Social History Hx Tobacco Use: No Hx Alcohol Use: No Hx Substance Use: No - Immunization History Hx Tetanus Toxoid Vaccination: No Hx Influenza Vaccination: Yes Hx Pneumococcal Vaccination: Yes Review Of Systems Constitutional: Positive for: Chills Cardiovascular: Negative for: Chest Pain, Palpitations Respiratory: Positive for: Shortness of Breath. Negative for: Cough Gastrointestinal: Positive for: Nausea, Vomiting, Abdominal Pain. Negative for: Diarrhea Skin: Negative for: Rash Neurological: Negative for: Weakness, Numbness, Headache Physical Exam - Physical Exam Appears: Well, Non-toxic, In Acute Distress (in moderate pain), Other (uncomfortable appearing) Skin: Warm, Dry, No Rash Head: Atraumatic, Normacephalic Oral Mucosa: Moist Chest: Other (port in right upper chest ) Cardiovascular: Rhythm Regular, No Murmur, Other (tachycardic) Respiratory: Normal Breath Sounds, No Rales, No Rhonchi, No Wheezing Gastrointestinal/Abdominal: Bowel Sounds, Soft, Tenderness (diffuse TTP greatest at epigastric area), Distention, No Guarding, No Rebound, Other ((-) McBurney's, (-) Herrera's) Back: No CVA Tenderness Neurological/Psych: Oriented x3 ED Course And Treatment - Laboratory Results Result Diagrams: 12/06/18 10:39 12/06/18 10:39 ECG: Interpreted By Me, Viewed By Me (sinus tachycardia 101 bpm, normal axis, peaked T waves, no acute ST changes) ECG Interpretation: Abnormal O2 Sat by Pulse Oximetry: 95 (RA) Pulse Ox Interpretation: Normal - Other Rad abdomen obstructive series X-Ray: Read By Radiologist Interpretation: Accession No. : [id number]. Patient Name / ID : RAYMUNDO Lord / [id number]. Exam Date : 12/06/2018 11:09:32 ( Approved ). Study Comment : Sex / Age : F / 32Y. Creator : Herman Mckeon MD. Dictator : Herman Mckeon MD. Tape Fastener Machine Operator : Proof Tester : Herman Mckeon MD. Approver2 : Report Date : 12/06/2018 11:43:39. My Comment : . Date of service: 12/06/2018. PROCEDURE: Radiographs of the chest and abdomen (obstructive series). HISTORY: nausea/vomiting, contipation. COMPARISON: No prior. TECHNIQUE: AP radiograph of the chest, with upright and supine radiographs of the abdomen. 3 views obtained. Examination technically limited. Only a single upright view of the abdomen was included. Patient refused further evaluation at this time. FINDINGS: CHEST: Lungs: Clear. Cardiovascular: Normal size heart. No pulmonary vascular congestion. No aortic atherosclerotic calcification present. Pleura: No pleural fluid. No pneumothorax. Other findings: None. ABDOMEN AND PELVIS: Bowel: Unremarkable bowel gas pattern. No evidence of mechanical obstruction. Free air: None. Bones: Unremarkable. Other findings: None. IMPRESSION: Unremarkable radiographs of chest and abdomen. No evidence of mechanical bowel obstruction. Progress Note: Blood work, obstructive series ordered and reviewed. Patient given IV Reglan, IV fentanyl, IV protonix. EKG shows peaked T waves, hyperkalemia only mild - 1 amp calcium gluconate given. Patient to have HD. Reevaluation Time: 11:15 Reassessment Condition: Unchanged (Patient continues to have nausea, vomiting and abdominal pain - will need observation.) - Physician Consult Information Physician Contacted: Kim Sexton Outcome Of Conversation: Discussed patient with PMD, agrees with admission for gastroparesis, ESRD on HD needing dialysis, nausea/vomiting, intractable abdominal pain, fluid overload, hyperkalemia. Disposition - Disposition Disposition: HOSPITALIZED Disposition Time: 11:32 Condition: STABLE - Clinical Impression Clinical Impression: ESRD (end stage renal disease) on dialysis, Diabetic gastroparesis, Dyspnea, Fluid overload, Hyperkalemia - Scribe Statement The provider has reviewed the documentation as recorded by the Arun Parks Do Provider Attestation: All medical record entries made by the Kwadwoibjoan were at my direction and personally dictated by me. I have reviewed the chart and agree that the record accurately reflects my personal performance of the history, physical exam, medical decision making, and the department course for this patient. I have also personally directed, reviewed, and agree with the discharge instructions and disposition. Decision To Admit - Pt Status Changed To: Hospital Disposition Of: Observation - . Bed Request Type: Telemetry Admitting Physician: Kim Sexton Patient Diagnosis: ESRD (end stage renal disease) on dialysis, Diabetic gastroparesis, Intractable vomiting, Intractable pain, Hyperkalemia, Fluid overload, Dyspnea
[2018-12-06 11:06] LABS: ALB/GLOB RATIO 1.5 (1.0-2.1); ALBUMIN 4.5 g/dL (3.5-5.0); CALCIUM 8.3 mg/dl (8.6-10.4)
[2018-12-06] MEDS ORDERED: (Novolin R) Insulin Human Regular 100 units/ml vial IVP ONE (11:31)
[2018-12-06] MEDS ORDERED: (Novolin R) Insulin Human Regular 100 units/ml vial ONE (11:40)
--- NOTE | 2018-12-06 11:47 | RAD ---
Date of service: 12/06/2018 PROCEDURE: Radiographs of the chest and abdomen (obstructive series) HISTORY: nausea/vomiting, contipation COMPARISON: No prior. TECHNIQUE: AP radiograph of the chest, with upright and supine radiographs of the abdomen. 3 views obtained. Examination technically limited. Only a single upright view of the abdomen was included. Patient refused further evaluation at this time. FINDINGS: CHEST: Lungs: Clear. Cardiovascular: Normal size heart. No pulmonary vascular congestion. No aortic atherosclerotic calcification present Pleura: No pleural fluid. No pneumothorax. Other findings: None. ABDOMEN AND PELVIS: Bowel: Unremarkable bowel gas pattern. No evidence of mechanical obstruction. Free air: None. Bones: Unremarkable. Other findings: None. IMPRESSION: Unremarkable radiographs of chest and abdomen. No evidence of mechanical bowel obstruction.
[2018-12-06] MEDS ORDERED: Calcium Gluconate 4.65 MEQ in Dextrose 5% In Water 100 ML IV ONE (12:21)
[2018-12-06] MEDS ORDERED: Albuterol-Ipratrop 3 mg / 0.5 (3 ml) UD IH PRN (14:50)
--- NOTE | 2018-12-06 16:28 | CP.PCM.HP ---
History of Present Illness - History of Present Illness History of Present Illness: 32-year-old female non-smoker non-EtOH abuser with history of multiple medical issues with a diabetic endorgan damage with history of hemodialysis secondary to end-stage renal disease with history of anemia history of anxiety history of asthma history of fluid overload history of fracture left foot history of diabetic gastropathy history of gastroparesis history of high cholesterol history of hypothyroidism history of kidney stones history of pancreatitis history of pneumonia came in because of patient started again acting up so mother called me telling me that patient Nannette is in the emergency room because he started again throwing up with abdominal pain going on for almost 3 days with mild shortness of breath as patient missed hemodialysis today and it is due today eventually received a call from the ER and patient got hospitalized Present on Admission - Present on Admission Any Indicators Present on Admission: No Review of Systems - Review of Systems Review of Systems: 12 points reviewed of system negative - Constitutional Constitutional: As Per HPI - EENT Eyes: As Per HPI Ears: As Per HPI Past Patient History - Infectious Disease Hx of Infectious Diseases: None - Tetanus Immunizations Tetanus Immunization: Unknown - Past Medical History & Family History Past Medical History?: Yes - Past Social History Smoking Status: Former Smoker - CARDIAC Hx Congestive Heart Failure: Yes Hx Hypercholesterolemia: Yes Hx Hypertension: Yes Hx Peripheral Edema: Yes - PULMONARY Hx Asthma: Yes Hx Bronchitis: Yes Hx Pneumonia: Yes Hx Sleep Apnea: Yes - NEUROLOGICAL Hx Seizures: Yes - HEENT Hx HEENT Problems: Yes Hx Cataracts: Yes (BOTH EYES) Hx Glaucoma: Yes (BOTH EYES) - RENAL Hx Chronic Kidney Disease: Yes Hx Kidney Stones: Yes - ENDOCRINE/METABOLIC Hx Hyperthyroidism: Yes Hx Hypothyroidism: Yes - HEMATOLOGICAL/ONCOLOGICAL Hx Anemia: Yes - INTEGUMENTARY Hx Dermatological Problems: Yes Other/Comment: DRY ITCHY SKIN ;multiple/generalized dark spots on skin. left toe blister - MUSCULOSKELETAL/RHEUMATOLOGICAL Hx Fractures: Yes (LEFT FOOT) - GASTROINTESTINAL Hx Gall Bladder Disease: Yes Hx Gastritis: Yes Hx Pancreatitis: Yes - PSYCHIATRIC Hx Anxiety: Yes Hx Substance Use: No - SURGICAL HISTORY Hx Cholecystectomy: Yes Hx Coronary Stent: Yes (x1) - ANESTHESIA Hx Anesthesia: Yes Hx Anesthesia Reactions: No Hx Malignant Hyperthermia: No Meds Allergies/Adverse Reactions: Allergies Allergy/AdvReac Type Severity Reaction Status Date / Time ketorolac tromethamine Allergy RASH Verified 12/06/18 09:58 [From Toradol] latex Allergy RASH Verified 12/06/18 09:58 morphine Allergy RASH Verified 12/06/18 09:58 tramadol Allergy RASH Verified 12/06/18 09:58 Physical Exam - Constitutional Appears: Well - Head Exam Head Exam: ATRAUMATIC, NORMAL INSPECTION, NORMOCEPHALIC - Eye Exam Eye Exam: Normal appearance Pupil Exam: PERRL - ENT Exam ENT Exam: Mucous Membranes Moist - Neck Exam Neck exam: Positive for: Full Rom - Respiratory Exam Respiratory Exam: Decreased Breath Sounds - Cardiovascular Exam Cardiovascular Exam: REGULAR RHYTHM, +S1, +S2 - GI/Abdominal Exam GI & Abdominal Exam: Bruit, Diminished Bowel Sounds, Soft - Rectal Exam Rectal Exam: Deferred - Neurological Exam Neurological exam: Oriented x3 Results - Vital Signs Recent Vital Signs: Last Vital Signs Temp 97.7 F 12/06/18 15:45 Pulse 83 12/06/18 15:45 Resp 18 12/06/18 15:45 BP 146/80 12/06/18 16:15 Pulse Ox 100 12/06/18 15:45 - Labs Result Diagrams: 12/06/18 10:39 12/06/18 10:39 Labs: Laboratory Results - last 24 hr 12/06/18 12/06/18 12/06/18 10:39 10:39 10:39 WBC 10.3 RBC 3.14 L Hgb 9.5 L Hct 29.4 L MCV 93.5 MCH 30.3 MCHC 32.4 L RDW 17.4 H Plt Count 347 MPV 7.9 Neut % (Auto) 72.4 Lymph % (Auto) 11.2 L [place] % (Auto) 8.5 Eos % (Auto) 6.9 H Baso % (Auto) 1.0 Neut # (Auto) 7.5 H Lymph # (Auto) 1.2 [place] # (Auto) 0.9 H Eos # (Auto) 0.7 Baso # (Auto) 0.1 Sodium 133 Potassium 5.4 H Chloride 92 L Carbon Dioxide 27 Anion Gap 19 BUN 54 H Creatinine 8.2 H* Est GFR ( Amer) 7 Est GFR (Non-Af Amer) 6 POC Glucose (mg/dL) Random Glucose 354 H D Calcium 8.3 L Total Bilirubin 0.5 AST 34 ALT 11 Alkaline Phosphatase 134 H Total Protein 7.5 Albumin 4.5 Globulin 3.0 Albumin/Globulin Ratio 1.5 Lipase 63 Beta HCG, Quant < 2.39 12/06/18 12:23 WBC RBC Hgb Hct MCV MCH MCHC RDW Plt Count MPV Neut % (Auto) Lymph % (Auto) [place] % (Auto) Eos % (Auto) Baso % (Auto) Neut # (Auto) Lymph # (Auto) [place] # (Auto) Eos # (Auto) Baso # (Auto) Sodium Potassium Chloride Carbon Dioxide Anion Gap BUN Creatinine Est GFR ( Amer) Est GFR (Non-Af Amer) POC Glucose (mg/dL) 290 H Random Glucose Calcium Total Bilirubin AST ALT Alkaline Phosphatase Total Protein Albumin Globulin Albumin/Globulin Ratio Lipase Beta HCG, Quant Assessment & Plan (1) Accelerated essential hypertension Status: Acute (2) Acute pulmonary edema Status: Acute (3) Adjustment disorder with anxiety Status: Acute Priority: Low (4) Amenorrhea Status: Acute (5) Anemia Status: Acute (6) Bacteremia Status: Acute (7) Cellulitis Status: Acute (8) Chest pain Status: Acute (9) Chronic congestive heart failure Status: Acute (10) Chronic intractable pain Status: Acute (11) Chronic pain Status: Acute (12) Colicky periumbilical abdominal pain Status: Acute (13) Congestive heart failure Status: Acute (14) DM w/o complication type I Status: Acute (15) DVT (deep venous thrombosis) Status: Acute (16) Diabetic gastroparesis Status: Acute (17) Dyspnea Status: Acute (18) ESRD (end stage renal disease) on dialysis Status: Acute (19) Epistaxis Status: Acute (20) Fluid overload Status: Acute (21) Foot ulcer Status: Acute (22) Gastric pain Status: Acute (23) 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 Status: Acute (24) Hemorrhage of arteriovenous fistula Status: Acute (25) Herpes Status: Acute (26) History of diabetic gastroparesis Status: Acute (27) Hyperglycemia Status: Acute (28) Hyperglycemia without ketosis Status: Acute (29) Hyperkalemia Status: Acute (30) Hypertension, malignant Status: Acute (31) Hypertensive urgency Status: Acute (32) Hypoglycemia Status: Acute (33) Infection due to central venous catheter exit site Status: Acute (34) Infection, dialysis vascular access Status: Acute (35) Influenza Status: Acute (36) Leg swelling Status: Acute (37) Leukocytosis Status: Acute (38) Leukocytosis Status: Acute (39) Medical assessment Status: Acute (40) Multifocal pneumonia Status: Acute (41) Narcotic addiction Status: Acute (42) Nausea Status: Acute (43) Opioid dependence Status: Acute (44) Other complication of arteriovenous dialysis fistula Status: Acute (45) Positive blood culture Status: Acute (46) Pulmonary edema Status: Acute (47) Pulmonary edema Status: Acute (48) Renal azotemia Status: Acute (49) Renal failure Status: Acute (50) Renal function tests abnormal Status: Acute (51) Respiratory distress Status: Acute (52) Sepsis Status: Acute (53) Shortness of breath Status: Acute (54) Tearfulness Status: Acute (55) Threatening to others Status: Acute (56) Trigger finger, left middle finger Status: Acute (57) UTI (urinary tract infection) Status: Acute (58) Uncontrolled diabetes mellitus Status: Acute (59) Vaginal discharge Status: Acute (60) Viral bronchitis Status: Acute (61) Vomiting Status: Acute (62) Vomiting bile Status: Acute (63) Vulvovaginal candidiasis Status: Acute (64) Anemia Status: Chronic (65) Chronic pruritus Status: Chronic (66) Chronic, continuous use of opioids Status: Chronic (67) Constipation Status: Chronic (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, managed as type 2 Status: Chronic (69) End stage renal disease Status: Chronic (70) End stage renal disease on dialysis Status: Chronic (71) Gastroparesis Status: Chronic (72) Hemodialysis patient Status: Chronic (73) History of osteomyelitis Status: Chronic (74) Hypertension Status: Chronic (75) Hypertension associated with diabetes Status: Chronic (76) Intractable abdominal pain Status: Chronic (77) Intractable nausea and vomiting Status: Chronic (78) Pain Status: Chronic (79) Skin lesions, generalized Status: Chronic (80) Type 1 diabetes Status: Chronic - Assessment and Plan (Free Text) Plan: Clonidine Hydralazine Amlodipine Hemodialysis today as patient missed a Renal consult Renal diet Fingerstick AC at bedtime Lower lobe Zofran as needed Discussed with the mother As ordered Hemodialysis within ultrafiltrate of 2.5 L Procrit Zemplar as per the renal Patient advised to see a GI doctor if needed for ongoing diabetic gastropathy k is 5.4 Creatinine is 8.2 Hemoglobin hematocrit [id number] respectively
[2018-12-06] MEDS: DiphenhydrAMINE 50 mg/ml Inj IVP PRN ×3 (17:05→22:34)
[2018-12-06] MEDS: Sucralfate 1 gm/10 ml Oral Susp UD PO SCH ×2 (20:17→21:12)
[2018-12-06] MEDS ORDERED: (Lantus) Insulin Glargine, Recombinant SC SCH (22:00)
--- NOTE | 2018-12-06 23:42 | CP.PCM.CON ---
History of Present Illness - History of Present Illness History of Present Illness: REASONS FOR CONSUT : ESRD ON HD M W F AND SAT ANEMIA OF CKD ELECTROLYTES ABNORMALITIES PT WAS SEEN AND EXAMINED .. PT RECIEVED STAT HD TODAY PT IS WELL KNOWN TO ME WITH MMP AND FREQEUNT ADMISSIONS 32 y/o female pt presents to the ER c/o nausea, vomiting, abdominal pain, mild SOB and chills for x3 days. Pt completed some dialysis on 12/04 and is due today. Pt denies chest pain and diarrhea. Time Seen by Provider: 12/06/18 09:56 Chief Complaint (Nursing): Abdominal Pain History Per: Patient History/Exam Limitations: no limitations Onset/Duration Of Symptoms: Days (x3) Current Symptoms Are (Timing): Still Present Past Medical History Reviewed: Historical Data, Nursing Documentation, Vital Signs Vital Signs: Last Vital Signs Temp 99 F 12/06/18 09:56 Pulse 118 H 12/06/18 09:56 Resp 22 12/06/18 09:56 BP 193/150 H 12/06/18 09:56 Pulse Ox 95 12/06/18 09:56 - Medical History PMH: Anemia, Anxiety, Asthma, Bronchitis, CHF, Diabetes, Fractures (LEFT FOOT), Gastritis, Gastrointestinal Ulcer (gastroparesis), Gall Bladder Disease, Hepatitis, HTN, Hypercholesterolemia, Hyperthyroidism, Hypothyroidism, Kidney Stones, Pancreatitis, Peripheral Edema, Pneumonia, End Stage Renal Disease, Chronic Kidney Disease, Seizures, Sleep Apnea, Chronic Pain Surgical History: Cholecystectomy, Coronary Stent (x1) - [facility] Procedures Past Patient History - Infectious Disease Hx of Infectious Diseases: None - Tetanus Immunizations Tetanus Immunization: Unknown - Past Medical History & Family History Past Medical History?: Yes - Past Social History Smoking Status: Former Smoker - CARDIAC Hx Congestive Heart Failure: Yes Hx Hypercholesterolemia: Yes Hx Hypertension: Yes Hx Peripheral Edema: Yes - PULMONARY Hx Asthma: Yes Hx Bronchitis: Yes Hx Pneumonia: Yes Hx Sleep Apnea: Yes - NEUROLOGICAL Hx Seizures: Yes - HEENT Hx HEENT Problems: Yes Hx Cataracts: Yes (BOTH EYES) Hx Glaucoma: Yes (BOTH EYES) - RENAL Hx Chronic Kidney Disease: Yes Hx Kidney Stones: Yes - ENDOCRINE/METABOLIC Hx Hyperthyroidism: Yes Hx Hypothyroidism: Yes - HEMATOLOGICAL/ONCOLOGICAL Hx Anemia: Yes - INTEGUMENTARY Hx Dermatological Problems: Yes Other/Comment: DRY ITCHY SKIN ;multiple/generalized dark spots on skin. left to e blister - MUSCULOSKELETAL/RHEUMATOLOGICAL Hx Fractures: Yes (LEFT FOOT) - GASTROINTESTINAL Hx Gall Bladder Disease: Yes Hx Gastritis: Yes Hx Pancreatitis: Yes - PSYCHIATRIC Hx Anxiety: Yes Hx Substance Use: No - SURGICAL HISTORY Hx Cholecystectomy: Yes Hx Coronary Stent: Yes (x1) - ANESTHESIA Hx Anesthesia: Yes Hx Anesthesia Reactions: No Hx Malignant Hyperthermia: No Meds Allergies/Adverse Reactions: Allergies Allergy/AdvReac Type Severity Reaction Status Date / Time ketorolac tromethamine Allergy RASH Verified 12/06/18 09:58 [From Toradol] latex Allergy RASH Verified 12/06/18 09:58 morphine Allergy RASH Verified 12/06/18 09:58 tramadol Allergy RASH Verified 12/06/18 09:58 - Medications Medications: Current Medications Albuterol/Ipratropium (Duoneb 3 Mg/0.5 Mg (3 Ml) Ud) 3 ml IH QID PRN PRN Reason: Wheezing Amlodipine Besylate (Norvasc) 5 mg PO DAILY [facility] Aspirin (Ecotrin) 81 mg PO DAILY [facility] Calcium Acetate (Phoslo) 667 mg PO TIDCC [facility] Last Admin: 12/06/18 20:18 Dose: Not Given Carvedilol (Coreg) 3.125 mg PO BID [facility] Last Admin: 12/06/18 20:15 Dose: 3.125 mg Clonidine HCl (Catapres) 0.3 mg PO BID [facility] Last Admin: 12/06/18 20:14 Dose: 0.3 mg Diphenhydramine HCl (Benadryl) 50 mg IVP MWF PRN PRN Reason: Itching / Pruritus Last Admin: 12/06/18 18:06 Dose: 50 mg Diphenhydramine HCl (Benadryl) 25 mg IVP TID PRN PRN Reason: Other Last Admin: 12/06/18 22:34 Dose: 25 mg Docusate Sodium (Colace) 100 mg PO TID [facility] Last Admin: 12/06/18 20:15 Dose: 100 mg Ergocalciferol (Drisdol 50,000 Intl Units Cap) 1 cap PO QWK [facility] Gabapentin (Neurontin) 400 mg PO BID [facility] Last Admin: 12/06/18 20:14 Dose: 400 mg Hydromorphone HCl (Dilaudid) 2 mg IVP Q4H PRN PRN Reason: Pain, severe (8-10) Last Admin: 12/06/18 21:12 Dose: 2 mg Insulin Aspart (Novolog) 0 unit SC ACHS [facility]; Protocol Insulin Glargine (Lantus) 25 unit SC HS [facility] Last Admin: 12/06/18 21:13 Dose: 25 unit Metoclopramide HCl (Reglan) 10 mg PO BID PRN PRN Reason: Nausea/Vomiting Pantoprazole Sodium (Protonix Ec Tab) 40 mg PO DAILY [facility] Sucralfate (Carafate Oral Susp) 1 gm PO QID [facility] Last Admin: 12/06/18 21:12 Dose: 1 gm Results - Vital Signs Recent Vital Signs: Last Vital Signs Temp 97.2 F L 12/06/18 18:45 Pulse 73 12/06/18 18:45 Resp 18 12/06/18 18:45 BP 174/84 H 12/06/18 18:45 Pulse Ox 99 12/06/18 16:22 - Labs Result Diagrams: 12/06/18 10:39 12/06/18 10:39 Labs: Laboratory Results - last 24 hr 12/06/18 12/06/18 12/06/18 10:39 10:39 10:39 WBC 10.3 RBC 3.14 L Hgb 9.5 L Hct 29.4 L MCV 93.5 MCH 30.3 MCHC 32.4 L RDW 17.4 H Plt Count 347 MPV 7.9 Neut % (Auto) 72.4 Lymph % (Auto) 11.2 L [place] % (Auto) 8.5 Eos % (Auto) 6.9 H Baso % (Auto) 1.0 Neut # (Auto) 7.5 H Lymph # (Auto) 1.2 [place] # (Auto) 0.9 H Eos # (Auto) 0.7 Baso # (Auto) 0.1 Sodium 133 Potassium 5.4 H Chloride 92 L Carbon Dioxide 27 Anion Gap 19 BUN 54 H Creatinine 8.2 H* Est GFR ( Amer) 7 Est GFR (Non-Af Amer) 6 POC Glucose (mg/dL) Random Glucose 354 H D Calcium 8.3 L Total Bilirubin 0.5 AST 34 ALT 11 Alkaline Phosphatase 134 H Total Protein 7.5 Albumin 4.5 Globulin 3.0 Albumin/Globulin Ratio 1.5 Lipase 63 Beta HCG, Quant < 2.39 04/12/06/18 12/06/18 12:23 16:27 21:36 WBC RBC Hgb Hct MCV MCH MCHC RDW Plt Count MPV Neut % (Auto) Lymph % (Auto) [place] % (Auto) Eos % (Auto) Baso % (Auto) Neut # (Auto) Lymph # (Auto) [place] # (Auto) Eos # (Auto) Baso # (Auto) Sodium Potassium Chloride Carbon Dioxide Anion Gap BUN Creatinine Est GFR ( Amer) Est GFR (Non-Af Amer) POC Glucose (mg/dL) 290 H 253 H 329 H Random Glucose Calcium Total Bilirubin AST ALT Alkaline Phosphatase Total Protein Albumin Globulin Albumin/Globulin Ratio Lipase Beta HCG, Quant Assessment & Plan - Assessment and Plan (Free Text) Assessment: ESRD ON HD M W F AND SAT ANEMIA OF CKD .. OON ARANESP ELECTROLYTES ABN .. RECIEVED HD TODAY MMP P : STAT HD WAS GIVEN TODAY C/O CURRENT CARE C/O PRESENT MANAGEMENT RENAL AND DIABETIC DIET - Date & Time Date: 12/06/18 Time: 15:00
[2018-12-07] MEDS: DiphenhydrAMINE 50 mg/ml Inj IVP PRN ×2 (06:24→13:23)
[2018-12-07] MEDS ORDERED: (Novolog) Insulin Aspart, Recombinant 100 u/ml 10 ml vial SC SCH (07:30)
[2018-12-07] MEDS ORDERED: DiphenhydrAMINE 50 mg/ml Inj IVP STA ×2 (09:02→11:17)
[2018-12-07] MEDS ORDERED: Ergocalciferol 50,000 Intl Units Cap PO SCH (10:00)
[2018-12-07] MEDS ORDERED: Pantoprazole 40 mg EC Tab PO SCH (10:00)
[2018-12-07 10:25] VITALS: RESP 17
[2018-12-07] MEDS ORDERED: Epoetin Alfa 10,000 unit/ml Dialysis IV ONE (10:35)
[2018-12-07] MEDS ORDERED: DiphenhydrAMINE 50 mg/ml Inj IVP ONE (11:30)
[2018-12-07] MEDS: Sucralfate 1 gm/10 ml Oral Susp UD PO SCH ×2 (13:06→13:16)
--- NOTE | 2018-12-07 13:13 | CP.PCM.DIS ---
Provider - Provider Date of Admission: 12/06/18 11:32 Attending physician: Florence Sexton MD Consults: 12/06/18 11:35 Physician Consult Stat Comment: esrd needing hd Consulting Provider: Jesus Phillips Consulting Physician: Jesus Phillips Reason for Consult: neprhology Time Spent in preparation of Discharge (in minutes): 15 Diagnosis - Discharge Diagnosis (1) Accelerated essential hypertension Status: Acute (2) Acute pulmonary edema Status: Acute (3) Adjustment disorder with anxiety Status: Acute Priority: Low (4) Amenorrhea Status: Acute (5) Anemia Status: Acute (6) Bacteremia Status: Acute (7) Cellulitis Status: Acute (8) Chest pain Status: Acute (9) Chronic congestive heart failure Status: Acute (10) Chronic intractable pain Status: Acute (11) Chronic pain Status: Acute (12) Colicky periumbilical abdominal pain Status: Acute (13) Congestive heart failure Status: Acute (14) DM w/o complication type I Status: Acute (15) DVT (deep venous thrombosis) Status: Acute (16) Diabetic gastroparesis Status: Acute (17) Dyspnea Status: Acute (18) ESRD (end stage renal disease) on dialysis Status: Acute (19) Epistaxis Status: Acute (20) Fluid overload Status: Acute (21) Foot ulcer Status: Acute (22) Gastric pain Status: Acute (23) 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 Status: Acute (24) Hemorrhage of arteriovenous fistula Status: Acute (25) Herpes Status: Acute (26) History of diabetic gastroparesis Status: Acute (27) Hyperglycemia Status: Acute (28) Hyperglycemia without ketosis Status: Acute (29) Hyperkalemia Status: Acute (30) Hypertension, malignant Status: Acute (31) Hypertensive urgency Status: Acute (32) Hypoglycemia Status: Acute (33) Infection due to central venous catheter exit site Status: Acute (34) Infection, dialysis vascular access Status: Acute (35) Influenza Status: Acute (36) Leg swelling Status: Acute (37) Leukocytosis Status: Acute (38) Leukocytosis Status: Acute (39) Medical assessment Status: Acute (40) Multifocal pneumonia Status: Acute (41) Narcotic addiction Status: Acute (42) Nausea Status: Acute (43) Opioid dependence Status: Acute (44) Other complication of arteriovenous dialysis fistula Status: Acute (45) Positive blood culture Status: Acute (46) Pulmonary edema Status: Acute (47) Pulmonary edema Status: Acute (48) Renal azotemia Status: Acute (49) Renal failure Status: Acute (50) Renal function tests abnormal Status: Acute (51) Respiratory distress Status: Acute (52) Sepsis Status: Acute (53) Shortness of breath Status: Acute (54) Tearfulness Status: Acute (55) Threatening to others Status: Acute (56) Trigger finger, left middle finger Status: Acute (57) UTI (urinary tract infection) Status: Acute (58) Uncontrolled diabetes mellitus Status: Acute (59) Vaginal discharge Status: Acute (60) Viral bronchitis Status: Acute (61) Vomiting Status: Acute (62) Vomiting bile Status: Acute (63) Vulvovaginal candidiasis Status: Acute (64) Anemia Status: Chronic (65) Chronic pruritus Status: Chronic (66) Chronic, continuous use of opioids Status: Chronic (67) Constipation Status: Chronic (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, managed as type 2 Status: Chronic (69) End stage renal disease Status: Chronic (70) End stage renal disease on dialysis Status: Chronic (71) Gastroparesis Status: Chronic (72) Hemodialysis patient Status: Chronic (73) History of osteomyelitis Status: Chronic (74) Hypertension Status: Chronic (75) Hypertension associated with diabetes Status: Chronic (76) Intractable abdominal pain Status: Chronic (77) Intractable nausea and vomiting Status: Chronic (78) Pain Status: Chronic (79) Skin lesions, generalized Status: Chronic (80) Type 1 diabetes Status: Chronic Hospital Course - Lab Results Lab Results: Most Recent Lab Values WBC 10.3 K/uL (4.8-10.8) 12/06/18 10:39 RBC 3.14 Mil/uL (3.80-5.20) L 12/06/18 10:39 Hgb 9.5 g/dL (11.0-16.0) L 12/06/18 10:39 Hct 29.4 % (34.0-47.0) L 12/06/18 10:39 MCV 93.5 fL (81.0-99.0) 12/06/18 10:39 MCH 30.3 pg (27.0-31.0) 12/06/18 10:39 MCHC 32.4 g/dL (33.0-37.0) L 12/06/18 10:39 RDW 17.4 % (11.5-14.5) H 12/06/18 10:39 Plt Count 347 K/uL (130-400) 12/06/18 10:39 MPV 7.9 fL (7.2-11.7) 12/06/18 10:39 Neut % (Auto) 72.4 % (50.0-75.0) 12/06/18 10:39 Lymph % (Auto) 11.2 % (20.0-40.0) L 12/06/18 10:39 [place] % (Auto) 8.5 % (0.0-10.0) 12/06/18 10:39 Eos % (Auto) 6.9 % (0.0-4.0) H 12/06/18 10:39 Baso % (Auto) 1.0 % (0.0-2.0) 12/06/18 10:39 Neut # (Auto) 7.5 K/uL (1.8-7.0) H 12/06/18 10:39 Lymph # (Auto) 1.2 K/uL (1.0-4.3) 12/06/18 10:39 [place] # (Auto) 0.9 K/uL (0.0-0.8) H 12/06/18 10:39 Eos # (Auto) 0.7 K/uL (0.0-0.7) 12/06/18 10:39 Baso # (Auto) 0.1 K/uL (0.0-0.2) 12/06/18 10:39 Sodium 133 mmol/L (132-148) 12/06/18 10:39 Potassium 5.4 mmol/L (3.6-5.2) H 12/06/18 10:39 Chloride 92 mmol/L (98-107) L 12/06/18 10:39 Carbon Dioxide 27 mmol/L (22-30) 12/06/18 10:39 Anion Gap 19 (10-20) 12/06/18 10:39 BUN 54 mg/dL (7-17) H 12/06/18 10:39 Creatinine 8.2 mg/dL (0.7-1.2) H* 12/06/18 10:39 Est GFR ( Amer) 7 12/06/18 10:39 Est GFR (Non-Af Amer) 6 12/06/18 10:39 POC Glucose (mg/dL) 199 mg/dL (65-110) H 12/07/18 11:19 Random Glucose 354 mg/dL (65-105) H D 12/06/18 10:39 Calcium 8.3 mg/dl (8.6-10.4) L 12/06/18 10:39 Total Bilirubin 0.5 mg/dL (0.2-1.3) 12/06/18 10:39 AST 34 U/L (14-36) 12/06/18 10:39 ALT 11 U/L (9-52) 12/06/18 10:39 Alkaline Phosphatase 134 U/L (38-126) H 12/06/18 10:39 Total Protein 7.5 g/dL (6.3-8.3) 12/06/18 10:39 Albumin 4.5 g/dL (3.5-5.0) 12/06/18 10:39 Globulin 3.0 gm/dL (2.2-3.9) 12/06/18 10:39 Albumin/Globulin Ratio 1.5 (1.0-2.1) 12/06/18 10:39 Lipase 63 U/L (23-300) 12/06/18 10:39 Beta HCG, Quant < 2.39 mIU/ML 12/06/18 10:39 - Hospital Course Hospital Course: Patient got dialysis patient felt much better patient's wants to go today's [birth year] birthday patient received a pain shot Patient is eating fine food Mother is bedside Discussed with the mother Patient is planning to go to occasion on the [place]. Home medication reconciliation's none Discussed with the family Plan of care given to the patient Discharge Exam - Head Exam Head Exam: ATRAUMATIC, NORMAL INSPECTION, NORMOCEPHALIC - Eye Exam Eye Exam: EOMI, Normal appearance, PERRL Pupil Exam: NORMAL ACCOMODATION, PERRL - Respiratory Exam Respiratory Exam: Decreased Breath Sounds - Cardiovascular Exam Cardiovascular Exam: REGULAR RHYTHM, +S1, +S2 - GI/Abdominal Exam GI & Abdominal Exam: Diminished Bowel Sounds, Soft - Rectal Exam Rectal Exam: Deferred Discharge Plan - Discharge Medications Prescriptions: Gabapentin [Neurontin] 400 mg PO BID #30 cap Pantoprazole [Protonix EC Tab] 40 mg PO DAILY #30 ect Metoclopramide [Reglan] 10 mg PO BID PRN #30 tab PRN Reason: Nausea/Vomiting - Follow Up Plan Condition: STABLE Disposition: HOME/ ROUTINE Instructions: Hyperkalemia (DC), Hyperkalemia (GEN), Hypertension (DC), Hypertension (GEN) Additional Instructions: Please f/u with Dr. López office in 1 week Please f/u with HD as scheduled - T,TH,SAT Please resume all home medications
[2018-12-07 13:24] VITALS: BP 163/97; PULSE 93; TEMP 98.6
[2018-12-08 01:22] VITALS: O2SAT 95
== END 2018-12-07 14:28 | disposition home or self-care (01) ==
LOC: C.ER 09:53 → C.9E 11:32 → C.6T 12:05
PROVIDERS: ADMIT Internal Medicine Nephrology; ATTEND Internal Medicine Nephrology
DX: E10.43 Type 1 diabetes mellitus with diabetic autonomic (poly)neuropathy (principal); K31.84 Gastroparesis; Z79.4 Long term (current) use of insulin; I13.2 Hypertensive heart and chronic kidney disease with heart failure and with stage 5 chronic kidney disease, or end stage renal disease; E10.22 Type 1 diabetes mellitus with diabetic chronic kidney disease; N18.6 End stage renal disease; I50.9 Heart failure, unspecified; Z99.2 Dependence on renal dialysis; D63.1 Anemia in chronic kidney disease; I16.0 Hypertensive urgency; Z79.891 Long term (current) use of opiate analgesic; Z87.891 Personal history of nicotine dependence; E03.9 Hypothyroidism, unspecified; J45.909 Unspecified asthma, uncomplicated; K75.9 Inflammatory liver disease, unspecified; Z95.5 Presence of coronary angioplasty implant and graft; Z90.49 Acquired absence of other specified parts of digestive tract; Z87.01 Personal history of pneumonia (recurrent); Z87.442 Personal history of urinary calculi; Z87.11 Personal history of peptic ulcer disease; K59.00 Constipation, unspecified; F43.22 Adjustment disorder with anxiety; E87.5 Hyperkalemia; E10.69 Type 1 diabetes mellitus with other specified complication
CPT/HCPCS: 74022; 80053; 82948; 83690; 84702; 85025; 96374; 96375; 96376; 99285; C9113; G0257; G0378; J1170; J1200; J1642; J2405; J2765; J3010; Q4081

== ENCOUNTER 2018-12-22 04:40 | Inpatient (IN) | payer MEDICAID ==
[2018-12-22 04:40] VITALS: BMI 30.2
--- NOTE | 2018-12-22 05:08 | C.PDOC ---
History Of Present Illness 33 yr old F w/ hx of CAD x1 stent, cholecystectomy, CHF, Diabetes, gastroparesis, Hepatitis, HTN, Hypercholesterolemia, Pancreatitis, Peripheral Edema, ESRD on HD MWF presents for shortness of breath. She notes recent visit to [place] where she was diagnosed with a blood infection without a source, given vanc zosyn and had a hgb of 6.6. Pt notes that she signed out AMA after recieving blood transfusion, abx and HD on . She notes that she drove up with a friend today from [place] and notes shorness of breath, leg swelling, and noted that it might be time for her dialysis. She denies any fall or trauma, chest pain, abdominal pain, back pain, urinary complaints / vaginal d/c or rash. She notes that she is supposed to be on outpt abx but did not pick them up because they were expensive. No constipation or diarrhea. No unilateral leg swelling. PMD. DR. Edilia Sexton. Time Seen by Provider: 12/22/18 04:52 Chief Complaint (Nursing): Shortness Of Breath Past Medical History Vital Signs: Last Vital Signs Temp 97.9 F 12/22/18 04:57 Pulse 97 H 12/22/18 04:57 Resp 22 12/22/18 05:02 BP 182/96 H 12/22/18 04:57 Pulse Ox 100 12/22/18 05:02 Primary Care Provider: Kim Sexton - Medical History PMH: Anemia, Anxiety, Asthma, Bronchitis, CHF, Diabetes, Fractures (LEFT FOOT), Gastritis, Gastrointestinal Ulcer (gastroparesis), Gall Bladder Disease, Hepatitis, HTN, Hypercholesterolemia, Hyperthyroidism, Hypothyroidism, Kidney Stones, Pancreatitis, Peripheral Edema, Pneumonia, End Stage Renal Disease, Chronic Kidney Disease, Seizures, Sleep Apnea, Chronic Pain Surgical History: Cholecystectomy, Coronary Stent (x1) - [facility] Procedures (10/30/18) ASSISTANCE WITH RESPIRATORY VENTILATION, 24-96 HRS, CPAP (11/27/16) CAUTERY TO STOP EPISTAX (03/22/14) CENTRAL VENOUS CATHETER PLACEMENT WITH GUIDANCE (11/06/14) DIALYSIS ARTERIOVENOSTOM (01/10/14) DILATION OF L INNOM VEIN WITH INTRALUM DEV, PERC APPROACH (09/24/18) DILATION OF LEFT SUBCLAVIAN VEIN, PERCUTANEOUS APPROACH (09/03/17) DRAINAGE OF RIGHT FOOT SKIN, EXTERNAL APPROACH (07/17/16) DRAINAGE OF RIGHT LOWER ARM SKIN, EXTERNAL APPROACH (05/25/16) ESOPHAGOGASTRODUODENOSCOPY [EGD] W/CLOSED BIOPSY (03/03/14) EXCISION OF LEFT TOE PHALANX, OPEN APPROACH (07/12/17) EXCISION OF STOMACH, ENDO, DIAGN (05/09/16) EXTIRPATE MATTER FROM R LOW ARM SUBCU/FASCIA, PERC (05/25/16) EXTRACTION OF RIGHT FOOT SKIN, EXTERNAL APPROACH (05/25/16) EXTRACTION OF TOE NAIL, EXTERNAL APPROACH (07/12/17) FLEXIBLE SIGMOIDOSCOPY (10/26/14) FLUOROSCOPY OF DIALYSIS SHUNT/FISTULA USING L OSM CONTRAST (09/24/18) FLUOROSCOPY OF LEFT SUBCLAVIAN VEIN USING OTHER CONTRAST (09/03/17) FLUOROSCOPY OF R JUGULAR VEIN USING L OSM CONTRAST, GUIDANCE (12/13/15) FLUOROSCOPY OF RIGHT SUBCLAVIAN VEIN, GUIDANCE (08/07/16) HEMODIALYSIS (04/05/15) INDIVIDUAL PSYCHOTHERAPY, SUPPORTIVE (10/12/18) INJECT INSULIN (12/23/12) INJECT/INFUSE ELECTROLYT (12/23/12) INJECT/INFUSE NEC (01/17/15) INSERT INFUSION DEV IN R INT JUGULAR VEIN, PERC (02/23/16) INSERT VAD RESERVOIR IN CHEST SUBCU/FASCIA, OPEN (08/19/17) INSERTION OF INFUSION DEV INTO R BASILIC VEIN, PERC APPROACH (04/18/16) INSERTION OF INFUSION DEV INTO R BRACH VEIN, PERC APPROACH (02/19/17) INSERTION OF INFUSION DEV INTO R SUBCLAV VEIN, PERC APPROACH (08/29/16) INSERTION OF INFUSION DEV INTO SUP VENA CAVA, PERC APPROACH (08/19/17) INSERTION OF INFUSION DEVICE INTO R ATRIUM, PERC APPROACH (12/13/15) INSERTION OF VAD INTO CHEST SUBCU/FASCIA, OPEN APPROACH (12/13/15) MEASURE OF CARDIAC SAMPL & PRESSURE, L HEART, PERC APPROACH (10/09/16) OTHER ENDOSCOPY OF SM INTEST (08/25/14) PACKED CELL TRANSFUSION (10/26/14) PERFORMANCE OF URINARY FILTRATION, MULTIPLE (03/19/17) PERFORMANCE OF URINARY FILTRATION, SINGLE (11/27/16) PLAIN RADIOGRAPHY OF LEFT HEART USING OTHER CONTRAST (10/09/16) PLAIN RADIOGRAPHY OF MULT COR ART USING OTH CONTRAST (10/09/16) PLICATION OF VENA CAVA (03/22/14) POST NASAL PAC FOR EPIST (03/22/14) REMOVAL OF VAD FROM TRUNK SUBCU/FASCIA, OPEN APPROACH (02/23/16) RESECTION OF TOE NAIL, EXTERNAL APPROACH (08/19/17) MELVIN KENNY DIALYSIS SHUNT (03/03/14) THERAPEUTIC ERYTHROCYTAPHERESIS (10/26/14) TRANSFUSE NONAUT RED BLOOD CELLS IN PERIPH VEIN, PERC (02/19/17) ULTRASONOGRAPHY OF RIGHT AND LEFT HEART, TRANSESOPHAGEAL (02/19/17) ULTRASONOGRAPHY OF RIGHT SUBCLAVIAN VEIN, GUIDANCE (08/29/16) ULTRASONOGRAPHY OF RIGHT UPPER EXTREMITY VEINS, GUIDANCE (02/19/17) VACCINATION NEC (10/26/14) VENOUS CATHETERIZATION FOR RENAL DIALYSIS (03/03/14) Family History: States: Unknown Family Hx - Social History Hx Tobacco Use: No Hx Alcohol Use: No Hx Substance Use: No - Immunization History Hx Tetanus Toxoid Vaccination: No Hx Influenza Vaccination: Yes Hx Pneumococcal Vaccination: Yes Review Of Systems Constitutional: Negative for: Fever, Chills, Weakness Eyes: Negative for: Pain, Vision Change, Conjunctivae Inflammation ENT: Negative for: Ear Pain, Ear Discharge, Nose Pain Cardiovascular: Positive for: Edema (b/l le). Negative for: Chest Pain, Palpitations, Orthopnea Respiratory: Positive for: Shortness of Breath. Negative for: Cough, SOB with Excertion, Pleuritic Pain Gastrointestinal: Negative for: Nausea, Vomiting, Abdominal Pain, Constipation, Melena, Hematochezia Genitourinary: Negative for: Dysuria, Frequency, Hematuria, Vaginal Discharge, Vaginal Bleeding Musculoskeletal: Negative for: Neck Pain, Shoulder Pain, Back Pain, Hand Pain Skin: Negative for: Rash, Lesions, Jaundice Neurological: Negative for: Weakness, Numbness, Confusion, Headache Physical Exam - Physical Exam Appears: Well, Non-toxic, No Acute Distress Skin: Normal Color, Warm, Dry Eye(s): bilateral: Normal Inspection, PERRL, EOMI Nose: Normal Tongue: Normal Appearing Lips: Normal Appearing Throat: Normal, No Erythema, No Exudate, No Drooling Neck: Normal, No Midline Cervical Tenderness, No Paracervical Tenderness, Supple, Other (no meningeal signs) Chest: Other (LUE scar and port site c/d/i, no signs of infx) Cardiovascular: Rhythm Regular, No Friction Rub, No Murmur, No JVD Respiratory: Normal Breath Sounds, No Decreased Breath Sounds, No Accessory Muscle Use, No Rales, No Rhonchi, No Stridor, No Wheezing Gastrointestinal/Abdominal: Normal Exam, Soft, No Tenderness, No Mass, No Distention, No Guarding Back: Normal Inspection, No CVA Tenderness, No Vertebral Tenderness Extremity: Normal ROM, No Tenderness, Pedal Edema (2+ LE edema), Other (LUE AV fistula good bruit good thrill, no crepitus / erythema) Pulses: Left Dorsalis Pedis: Normal, Right Dorsalis Pedis: Normal Neurological/Psych: Oriented x3, Normal Speech, Normal Cognition Gait: Steady ED Course And Treatment - Laboratory Results Result Diagrams: 12/22/18 06:06 12/22/18 06:06 O2 Sat by Pulse Oximetry: 100 Medical Decision Making Medical Decision Makin yr old F w/ hx of CAD x1 stent, cholecystectomy, CHF, Diabetes, ga stroparesis, Hepatitis, HTN, Hypercholesterolemia, Pancreatitis, Peripheral Edema, ESRD on HD MWF presents for shortness of breath. EK, nsr, no stemi, Long QT 0645 [place] ~5.0 w/ EKG changes: calcium ordered Hyper K cocktail given pt in NAD ICU paged [phone] appreciate consult w/ Dr. Harkins: to see pt He recommends contacting [facility] signed out to Dr. Hansen pending dispo Disposition - Disposition Disposition Time: 07:11 Condition: STABLE Forms: [employer] ([place]) - Clinical Impression Clinical Impression: Hypocalcemia, Hyperkalemia
[2018-12-22 06:09] LABS: BASO # 0.1 K/uL (0.0-0.2); BASO % 1.5 % (0.0-2.0); EOS # 0.7 K/uL (0.0-0.7); EOS % 7.8 % (0.0-4.0); LYMPH # 0.9 K/uL (1.0-4.3); LYMPH % 10.8 % (20.0-40.0); MEAN CELL VOLUME 93.2 fL (81.0-99.0); MEAN CORPUSCULAR HEMOGLOBIN 29.9 pg (27.0-31.0); MEAN CORPUSCULAR HGB CONC 32.1 g/dL (33.0-37.0); MEAN PLATELET VOLUME 8.4 fL (7.2-11.7); MONO # 0.3 K/uL (0.0-0.8); MONO % 3.3 % (0.0-10.0); NEUT # 6.8 K/uL (1.8-7.0); NEUT % 76.6 % (50.0-75.0); NRBC % 0.1 % (0.0-2.0); RBC 2.68 Mil/uL (3.80-5.20); RED CELL DISTRIBUTION WIDTH 17.7 % (11.5-14.5); WHITE BLOOD COUNT 8.8 K/uL (4.8-10.8)
[2018-12-22 06:15] LABS: VENOUS BLOOD GAS BASE EXCESS -5.8 mmol/L (0.0-2.0); VENOUS BLOOD GAS PCO2 37 mmHg (40-60); VENOUS BLOOD GAS PO2 57 mm/Hg (30-55); VENOUS BLOOD PH 7.33 (7.32-7.43)
[2018-12-22 06:31] LABS: ALB/GLOB RATIO 1.3 (1.0-2.1); ALBUMIN 4.3 g/dL (3.5-5.0); CALCIUM 5.3 mg/dl (8.6-10.4)
[2018-12-22] MEDS ORDERED: Albuterol 0.083% Inhal Sol (2.5 mg/3 mL) UD INH STA (06:43)
[2018-12-22] MEDS ORDERED: (Novolin R) Insulin Human Regular 100 units/ml vial IVP ONE (06:43)
[2018-12-22] MEDS ORDERED: Calcium Gluconate 4.65 mEq/10 ml Inj IVP ONE (06:46)
[2018-12-22 06:54] LABS: B-TYPE NATRIURETIC PEPTIDE 38300 pg/mL (0-450)
[2018-12-22] MEDS ORDERED: Calcium Gluconate 4.65 mEq/10 ml Inj ONE (06:54)
[2018-12-22] MEDS ORDERED: Albuterol 0.042% Inhal Sol (1.25 mg/3 mL) UD ONE (06:54)
[2018-12-22] MEDS ORDERED: (Novolin R) Insulin Human Regular 100 units/ml vial ONE (06:54)
--- NOTE | 2018-12-22 08:01 | CP.PCM.CON ---
Past Patient History - Infectious Disease Hx of Infectious Diseases: None - Tetanus Immunizations Tetanus Immunization: Unknown - Past Medical History & Family History Past Medical History?: Yes - Past Social History Smoking Status: Former Smoker - CARDIAC Hx Congestive Heart Failure: Yes Hx Hypercholesterolemia: Yes Hx Hypertension: Yes Hx Peripheral Edema: Yes - PULMONARY Hx Asthma: Yes Hx Bronchitis: Yes Hx Pneumonia: Yes Hx Sleep Apnea: Yes - NEUROLOGICAL Hx Seizures: Yes - HEENT Hx HEENT Problems: Yes Hx Cataracts: Yes (BOTH EYES) Hx Glaucoma: Yes (BOTH EYES) - RENAL Hx Chronic Kidney Disease: Yes Hx Kidney Stones: Yes - ENDOCRINE/METABOLIC Hx Hyperthyroidism: Yes Hx Hypothyroidism: Yes - HEMATOLOGICAL/ONCOLOGICAL Hx Anemia: Yes - INTEGUMENTARY Hx Dermatological Problems: Yes Other/Comment: DRY ITCHY SKIN ;multiple/generalized dark spots on skin. left toe blister - MUSCULOSKELETAL/RHEUMATOLOGICAL Hx Fractures: Yes (LEFT FOOT) - GASTROINTESTINAL Hx Gall Bladder Disease: Yes Hx Gastritis: Yes Hx Pancreatitis: Yes - PSYCHIATRIC Hx Anxiety: Yes Hx Substance Use: No - SURGICAL HISTORY Hx Cholecystectomy: Yes Hx Coronary Stent: Yes (x1) - ANESTHESIA Hx Anesthesia: Yes Hx Anesthesia Reactions: No Hx Malignant Hyperthermia: No Meds Allergies/Adverse Reactions: Allergies Allergy/AdvReac Type Severity Reaction Status Date / Time ketorolac tromethamine Allergy RASH Verified 12/22/18 05:01 [From Toradol] latex Allergy RASH Verified 12/22/18 05:01 morphine Allergy RASH Verified 12/22/18 05:01 tramadol Allergy RASH Verified 12/22/18 05:01 Results - Vital Signs Recent Vital Signs: Last Vital Signs Temp 97.9 F 12/22/18 04:57 Pulse 97 H 12/22/18 07:26 Resp 18 12/22/18 07:26 BP 177/97 H 12/22/18 07:26 Pulse Ox 93 L 12/22/18 07:26 - Labs Result Diagrams: 12/22/18 06:06 12/22/18 06:06 Labs: Laboratory Results - last 24 hr 12/22/18 12/22/18 12/22/18 06:06 06:06 06:06 WBC 8.8 RBC 2.68 L Hgb 8.0 L Hct 24.9 L MCV 93.2 MCH 29.9 MCHC 32.1 L RDW 17.7 H Plt Count 433 H MPV 8.4 Neut % (Auto) 76.6 H Lymph % (Auto) 10.8 L [place] % (Auto) 3.3 Eos % (Auto) 7.8 H Baso % (Auto) 1.5 Neut # (Auto) 6.8 Lymph # (Auto) 0.9 L [place] # (Auto) 0.3 Eos # (Auto) 0.7 Baso # (Auto) 0.1 pO2 VBG pH VBG pCO2 VBG HCO3 VBG Total CO2 VBG O2 Sat (Calc) VBG Base Excess VBG Potassium Glucose Lactate Crit Value Called To Crit Value Called By Crit Value Read Back Blood Gas Notified Time Sodium 133 Potassium 5.5 H Chloride 88 L Carbon Dioxide 19 L Anion Gap 31 H BUN 99 H Creatinine 9.7 H* Est GFR ( Amer) 6 Est GFR (Non-Af Amer) 5 Random Glucose 594 H* D Calcium 5.3 L* D Magnesium 2.0 Total Bilirubin 0.6 AST 119 H D ALT 82 H D Alkaline Phosphatase 208 H D NT-Pro-B Natriuret Pep 77103 H Total Protein 7.7 Albumin 4.3 Globulin 3.4 Albumin/Globulin Ratio 1.3 Beta HCG, Quant < 2.39 Venous Blood Potassium 12/22/18 06:08 WBC RBC Hgb Hct MCV MCH MCHC RDW Plt Count MPV Neut % (Auto) Lymph % (Auto) [place] % (Auto) Eos % (Auto) Baso % (Auto) Neut # (Auto) Lymph # (Auto) [place] # (Auto) Eos # (Auto) Baso # (Auto) pO2 57 H VBG pH 7.33 VBG pCO2 37 L VBG HCO3 20.1 VBG Total CO2 20.6 L VBG O2 Sat (Calc) 85.7 H VBG Base Excess -5.8 L VBG Potassium 4.6 Glucose 513 H* Lactate 0.6 L Crit Value Called To Dr young Crit Value Called By aKrin larson Crit Value Read Back Y Blood Gas Notified Time 615 Sodium 138.0 Potassium Chloride 102.0 Carbon Dioxide Anion Gap BUN Creatinine Est GFR ( Amer) Est GFR (Non-Af Amer) Random Glucose Calcium Magnesium Total Bilirubin AST ALT Alkaline Phosphatase NT-Pro-B Natriuret Pep Total Protein Albumin Globulin Albumin/Globulin Ratio Beta HCG, Quant Venous Blood Potassium 4.6
--- NOTE | 2018-12-22 09:40 | RAD ---
Date of service: 12/22/2018 HISTORY: SOB COMPARISON: Comparison chest dated 11/15/2018. TECHNIQUE: Chest PA and lateral views FINDINGS: No change right subclavian MediPort with tip in the SVC LUNGS: There appear to be diffuse bilateral mid and lower lobe interstitial infiltrates more confluent in the lower lung toney. Findings felt to represent an pulmonary venous congestion.. Suspect small right-sided effusion and questionable trace left effusion PLEURA: As above. No pneumothorax apparent. CARDIOVASCULAR: Endovascular stent graft again seen in the distribution of the left brachial the facets Fallot vein. No aortic atherosclerotic calcification present. Normal cardiac size. No pulmonary vascular congestion. OSSEOUS STRUCTURES: No significant abnormalities. VISUALIZED UPPER ABDOMEN: Normal. OTHER FINDINGS: None. IMPRESSION: Pulmonary venous congestive changes more confluent in the mid to lower lung toney.. Suspect small right-sided effusion and questionable trace left effusion
[2018-12-22] MEDS ORDERED: DiphenhydrAMINE 50 mg/ml Inj IVP ONE ×2 (10:00→11:30)
[2018-12-22] MEDS: (Novolin R) Insulin Human Regular 100 units/ml vial SC SCH ×3 (14:05→21:37)
[2018-12-22] MEDS: Sucralfate 1 gm/10 ml Oral Susp UD PO SCH ×3 (14:24→21:39)
--- NOTE | 2018-12-22 14:56 | CP.PCM.HP ---
History of Present Illness - History of Present Illness History of Present Illness: 83-year-old female with history of multiple medical disease like CAD end-stage renal disease diabetes diabetic gastroparesis peripheral edema hypertension high cholesterol anemia came in from the vacation at the [place] for a missed he modialysis and shortness of breath with the pedal edema Patient was evaluated by officer lieutenant for hypokalemia hypocalcemia although patient's potassium is 5.5 eventually cleared to go on the telemetry Patient was also admitted at the [place] on the trip for 2 weeks patient was hospitalized for 4 days in the hospital details given to me Patient usually with the mother bedside Present on Admission - Present on Admission Any Indicators Present on Admission: No Past Patient History - Infectious Disease Hx of Infectious Diseases: None - Tetanus Immunizations Tetanus Immunization: Unknown - Past Medical History & Family History Past Medical History?: Yes - Past Social History Smoking Status: Never Smoked - CARDIAC Hx Congestive Heart Failure: Yes Hx Hypercholesterolemia: Yes Hx Hypertension: Yes Hx Peripheral Edema: Yes - PULMONARY Hx Asthma: Yes Hx Bronchitis: Yes Hx Pneumonia: Yes Hx Sleep Apnea: Yes - NEUROLOGICAL Hx Seizures: Yes - HEENT Hx HEENT Problems: Yes Hx Cataracts: Yes (BOTH EYES) Hx Glaucoma: Yes (BOTH EYES) - RENAL Hx Chronic Kidney Disease: Yes Hx Kidney Stones: Yes - ENDOCRINE/METABOLIC Hx Hyperthyroidism: Yes Hx Hypothyroidism: Yes - HEMATOLOGICAL/ONCOLOGICAL Hx Anemia: Yes - INTEGUMENTARY Hx Dermatological Problems: Yes Other/Comment: DRY ITCHY SKIN ;multiple/generalized dark spots on skin. left toe blister - MUSCULOSKELETAL/RHEUMATOLOGICAL Hx Falls: Yes Hx Fractures: Yes (LEFT FOOT) - GASTROINTESTINAL Hx Gall Bladder Disease: Yes Hx Gastritis: Yes Hx Pancreatitis: Yes - PSYCHIATRIC Hx Anxiety: Yes Hx Substance Use: No - SURGICAL HISTORY Hx Cholecystectomy: Yes Hx Coronary Stent: Yes (x1) - ANESTHESIA Hx Anesthesia: Yes Hx Anesthesia Reactions: No Hx Malignant Hyperthermia: No Meds Allergies/Adverse Reactions: Allergies Allergy/AdvReac Type Severity Reaction Status Date / Time ketorolac tromethamine Allergy RASH Verified 12/22/18 05:01 [From Toradol] latex Allergy RASH Verified 12/22/18 05:01 morphine Allergy RASH Verified 12/22/18 05:01 tramadol Allergy RASH Verified 12/22/18 05:01 Physical Exam - Constitutional Appears: Well - Head Exam Head Exam: ATRAUMATIC, NORMAL INSPECTION, NORMOCEPHALIC - Eye Exam Eye Exam: EOMI, Normal appearance, PERRL Pupil Exam: NORMAL ACCOMODATION, PERRL - ENT Exam ENT Exam: Mucous Membranes Moist, Normal Exam - Neck Exam Neck exam: Positive for: Normal Inspection - Respiratory Exam Respiratory Exam: Decreased Breath Sounds - Cardiovascular Exam Cardiovascular Exam: REGULAR RHYTHM, +S1, +S2 - GI/Abdominal Exam GI & Abdominal Exam: Diminished Bowel Sounds, Soft - Rectal Exam Rectal Exam: Deferred - Neurological Exam Neurological exam: Oriented x3 Results - Vital Signs Recent Vital Signs: Last Vital Signs Temp 98.1 F 12/22/18 12:55 Pulse 104 H 12/22/18 12:55 Resp 16 12/22/18 12:55 BP 149/101 H 12/22/18 12:55 Pulse Ox 98 12/22/18 12:55 - Labs Result Diagrams: 12/23/18 14:12 12/23/18 14:12 Labs: Laboratory Results - last 24 hr 12/22/18 12/22/18 12/22/18 06:06 06:06 06:06 WBC 8.8 RBC 2.68 L Hgb 8.0 L Hct 24.9 L MCV 93.2 MCH 29.9 MCHC 32.1 L RDW 17.7 H Plt Count 433 H MPV 8.4 Neut % (Auto) 76.6 H Lymph % (Auto) 10.8 L [place] % (Auto) 3.3 Eos % (Auto) 7.8 H Baso % (Auto) 1.5 Neut # (Auto) 6.8 Lymph # (Auto) 0.9 L [place] # (Auto) 0.3 Eos # (Auto) 0.7 Baso # (Auto) 0.1 pO2 VBG pH VBG pCO2 VBG HCO3 VBG Total CO2 VBG O2 Sat (Calc) VBG Base Excess VBG Potassium Glucose Lactate Crit Value Called To Crit Value Called By Crit Value Read Back Blood Gas Notified Time Sodium 133 Potassium 5.5 H Chloride 88 L Carbon Dioxide 19 L Anion Gap 31 H BUN 99 H Creatinine 9.7 H* Est GFR ( Amer) 6 Est GFR (Non-Af Amer) 5 POC Glucose (mg/dL) Random Glucose 594 H* D Calcium 5.3 L* D Magnesium 2.0 Total Bilirubin 0.6 AST 119 H D ALT 82 H D Alkaline Phosphatase 208 H D NT-Pro-B Natriuret Pep 87916 H Total Protein 7.7 Albumin 4.3 Globulin 3.4 Albumin/Globulin Ratio 1.3 Beta HCG, Quant < 2.39 Venous Blood Potassium 12/22/18 12/22/18 06:08 11:52 WBC RBC Hgb Hct MCV MCH MCHC RDW Plt Count MPV Neut % (Auto) Lymph % (Auto) [place] % (Auto) Eos % (Auto) Baso % (Auto) Neut # (Auto) Lymph # (Auto) [place] # (Auto) Eos # (Auto) Baso # (Auto) pO2 57 H VBG pH 7.33 VBG pCO2 37 L VBG HCO3 20.1 VBG Total CO2 20.6 L VBG O2 Sat (Calc) 85.7 H VBG Base Excess -5.8 L VBG Potassium 4.6 Glucose 513 H* Lactate 0.6 L Crit Value Called To Dr young Crit Value Called By Karin larson Crit Value Read Back Y Blood Gas Notified Time 615 Sodium 138.0 Potassium Chloride 102.0 Carbon Dioxide Anion Gap BUN Creatinine Est GFR ( Amer) Est GFR (Non-Af Amer) POC Glucose (mg/dL) 311 H Random Glucose Calcium Magnesium Total Bilirubin AST ALT Alkaline Phosphatase NT-Pro-B Natriuret Pep Total Protein Albumin Globulin Albumin/Globulin Ratio Beta HCG, Quant Venous Blood Potassium 4.6 Assessment & Plan (1) Abscess of labia majora Status: Acute (2) Abscess of left groin Status: Acute (3) Accelerated essential hypertension Status: Acute (4) Acute hyperkalemia Status: Acute (5) Acute pulmonary edema Status: Acute (6) Acute renal failure Status: Acute (7) Adjustment disorder with anxiety Status: Acute Priority: Low (8) Amenorrhea Status: Acute (9) Anemia Status: Acute (10) Bacteremia Status: Acute (11) Catheter-related bloodstream infection (CRBSI) Status: Acute Priority: High (12) Cellulitis Status: Acute (13) Cellulitis and abscess of foot Status: Acute (14) Chest pain Status: Acute (15) Chronic congestive heart failure Status: Acute (16) Chronic intractable pain Status: Acute (17) Chronic pain Status: Acute (18) Colicky periumbilical abdominal pain Status: Acute (19) Congestive heart failure Status: Acute (20) Constipation Status: Acute (21) DM w/o complication type I Status: Acute (22) DVT (deep venous thrombosis) Status: Acute (23) Dehydration fever Status: Acute (24) Diabetic gastroparesis Status: Acute (25) Dyspnea Status: Acute (26) ESRD (end stage renal disease) on dialysis Status: Acute (27) Epistaxis Status: Acute (28) Esophagitis Status: Acute (29) Fever Status: Acute (30) Fluid overload Status: Acute (31) Foot ulcer Status: Acute (32) Gastric pain Status: Acute (33) 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 Status: Acute (34) Hemorrhage of arteriovenous fistula Status: Acute (35) Herpes Status: Acute (36) History of diabetic gastroparesis Status: Acute (37) Hyperglycemia Status: Acute (38) Hyperglycemia without ketosis Status: Acute (39) Hyperkalemia Status: Acute (40) Hypertension, malignant Status: Acute (41) Hypertensive crisis without congestive heart failure Status: Acute (42) Hypertensive urgency Status: Acute (43) Hypocalcemia Status: Acute (44) Hypoglycemia Status: Acute (45) Hypoxemia Status: Acute (46) Hypoxia Status: Acute (47) Infection due to central venous catheter exit site Status: Acute (48) Infection, dialysis vascular access Status: Acute (49) Influenza Status: Acute (50) Intractable pain Status: Acute (51) Intractable vomiting Status: Acute (52) Intractable vomiting Status: Acute (53) Leg swelling Status: Acute (54) Leukocytosis Status: Acute (55) Leukocytosis Status: Acute (56) Medical assessment Status: Acute (57) Multifocal pneumonia Status: Acute (58) Narcotic addiction Status: Acute (59) Nausea Status: Acute (60) Opioid dependence Status: Acute (61) Other complication of arteriovenous dialysis fistula Status: Acute (62) Positive blood culture Status: Acute (63) Prophylactic measure Status: Acute (64) Pulmonary edema Status: Acute (65) Pulmonary edema Status: Acute (66) Renal azotemia Status: Acute (67) Renal failure Status: Acute (68) Renal function tests abnormal Status: Acute (69) Respiratory distress Status: Acute (70) Sensorineural deafness, unilateral Status: Acute (71) Sepsis Status: Acute (72) Shortness of breath Status: Acute (73) Sternal osteomyelitis Status: Acute (74) Tearfulness Status: Acute (75) Threatening to others Status: Acute (76) Trigger finger, left middle finger Status: Acute (77) URI (upper respiratory infection) Status: Acute (78) UTI (lower urinary tract infection) Status: Acute (79) UTI (urinary tract infection) Status: Acute (80) Uncontrolled diabetes mellitus Status: Acute (81) Uncontrolled hypertension Status: Acute (82) Urinary tract infection symptoms Status: Acute (83) Vaginal discharge Status: Acute (84) Viral bronchitis Status: Acute (85) Vomiting Status: Acute (86) Vomiting bile Status: Acute (87) Vulvovaginal candidiasis Status: Acute (88) Abdominal discomfort, generalized Status: Chronic (89) Abdominal pain Status: Chronic (90) Abdominal pain Status: Chronic (91) Abdominal pain in female Status: Chronic (92) Anemia Status: Chronic (93) Anxiety Status: Chronic (94) CHF (congestive heart failure) Status: Chronic (95) Chronic abdominal pain Status: Chronic (96) Chronic pruritus Status: Chronic (97) Chronic, continuous use of opioids Status: Chronic (98) Constipation Status: Chronic (99) Dependence on renal dialysis Status: Chronic (100) Dependency on pain medication Status: Chronic (101) Diabetes Status: Chronic (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, managed as type 2 Status: Chronic (103) Drug-seeking behavior Status: Chronic (104) End stage renal disease Status: Chronic (105) End stage renal disease on dialysis Status: Chronic (106) Gastroparesis Status: Chronic (107) Hemodialysis patient Status: Chronic (108) History of osteomyelitis Status: Chronic (109) Hypertension Status: Chronic (110) Hypertension associated with diabetes Status: Chronic (111) Intractable abdominal pain Status: Chronic (112) Intractable nausea and vomiting Status: Chronic (113) Pain Status: Chronic (114) Skin lesions, generalized Status: Chronic (115) Type 1 diabetes Status: Chronic - Assessment and Plan (Free Text) Plan: [facility] Hemodialysis today Discussed with staff Norvasc Aspirin PhosLo Coreg Catapres Benadryl Colace Neurontin Heparin Dilaudid Benadryl Lantus Zofran Creatinine 8.3 Hemoglobin 8.1 Potassium 4.8 Patient was cleared by officer lieutenant because of the low calcium Blood pressure was high given medication blood pressure is better Discharge planning already done on the day of admission discussed with the patient's plan of care discussed patient agreed
[2018-12-22] MEDS: Albuterol-Ipratrop 3 mg / 0.5 (3 ml) UD INH SCH ×2 (15:49→19:10)
--- NOTE | 2018-12-22 20:30 | CP.PCM.CON ---
History of Present Illness - History of Present Illness History of Present Illness: REASONS FOR CONSULT : ESRD ON HD M W F AND SAT .. PT MISSED HER HD YESTERDAY ANEMIA OF CKD .. H/H R LOW ELECTOLYTES ABN .. HYPERKALEMIA AND HYPOCALCEMIA ALL EMR REVIEWED .. CHART REVIEWED .. PT WAS SEEN AND EXAMINED .. SHE WAS GIVEN STAT HD TREATMENT TODAY 33 yr old F w/ hx of CAD x1 stent, cholecystectomy, CHF, Diabetes, gastro paresis, Hepatitis, HTN, Hypercholesterolemia, Pancreatitis, Peripheral Edema, ESRD on HD MWF presents for shortness of breath. She notes recent visit to [place] where she was diagnosed with a blood infection without a source, given vanc zosyn and had a hgb of 6.6. Pt notes that she signed out AMA after recieving blood transfusion, abx and HD on . She notes that she drove up with a friend today from [place] and notes shorness of breath, leg swelling, and noted that it might be time for her dialysis. She denies any fall or trauma, chest pain, abdominal pain, back pain, urinary complaints / vaginal d/c or rash. She notes that she is supposed to be on outpt abx but did not pick them up because they were expensive. No constipation or diarrhea. No unilateral leg swelling. PMD. DR. Edilia Sexton. Time Seen by Provider: 12/22/18 04:52 Chief Complaint (Nursing): Shortness Of Breath Past Medical History Vital Signs: Last Vital Signs Temp 97.9 F 12/22/18 04:57 Pulse 97 H 12/22/18 04:57 Resp 22 12/22/18 05:02 BP 182/96 H 12/22/18 04:57 Pulse Ox 100 12/22/18 05:02 Primary Care Provider: Kim Sexton Past Patient History - Infectious Disease Hx of Infectious Diseases: None - Tetanus Immunizations Tetanus Immunization: Unknown - Past Medical History & Family History Past Medical History?: Yes - Past Social History Smoking Status: Never Smoked - CARDIAC Hx Congestive Heart Failure: Yes Hx Hypercholesterolemia: Yes Hx Hypertension: Yes Hx Peripheral Edema: Yes - PULMONARY Hx Asthma: Yes Hx Bronchitis: Yes Hx Pneumonia: Yes Hx Sleep Apnea: Yes - NEUROLOGICAL Hx Seizures: Yes - HEENT Hx HEENT Problems: Yes Hx Cataracts: Yes (BOTH EYES) Hx Glaucoma: Yes (BOTH EYES) - RENAL Hx Chronic Kidney Disease: Yes Hx Kidney Stones: Yes - ENDOCRINE/METABOLIC Hx Hyperthyroidism: Yes Hx Hypothyroidism: Yes - HEMATOLOGICAL/ONCOLOGICAL Hx Anemia: Yes - INTEGUMENTARY Hx Dermatological Problems: Yes Other/Comment: DRY ITCHY SKIN ;multiple/generalized dark spots on skin. left toe blister - MUSCULOSKELETAL/RHEUMATOLOGICAL Hx Falls: Yes Hx Fractures: Yes (LEFT FOOT) - GASTROINTESTINAL Hx Gall Bladder Disease: Yes Hx Gastritis: Yes Hx Pancreatitis: Yes - PSYCHIATRIC Hx Anxiety: Yes Hx Substance Use: No - SURGICAL HISTORY Hx Cholecystectomy: Yes Hx Coronary Stent: Yes (x1) - ANESTHESIA Hx Anesthesia: Yes Hx Anesthesia Reactions: No Hx Malignant Hyperthermia: No Meds Allergies/Adverse Reactions: Allergies Allergy/AdvReac Type Severity Reaction Status Date / Time ketorolac tromethamine Allergy RASH Verified 12/22/18 05:01 [From Toradol] latex Allergy RASH Verified 12/22/18 05:01 morphine Allergy RASH Verified 12/22/18 05:01 tramadol Allergy RASH Verified 12/22/18 05:01 - Medications Medications: Current Medications Albuterol/Ipratropium (Duoneb 3 Mg/0.5 Mg (3 Ml) Ud) 3 ml INH RQID [facility] Last Admin: 12/22/18 19:10 Dose: Not Given Amlodipine Besylate (Norvasc) 5 mg PO DAILY [facility] Aspirin (Ecotrin) 81 mg PO DAILY [facility] Calcium Acetate (Phoslo) 667 mg PO TID [facility] Last Admin: 12/22/18 17:07 Dose: 667 mg Carvedilol (Coreg) 3.125 mg PO BID [facility] Last Admin: 12/22/18 17:08 Dose: 3.125 mg Diphenhydramine HCl (Benadryl) 25 mg PO Q6 PRN PRN Reason: Itching / Pruritus Last Admin: 12/22/18 17:07 Dose: 25 mg Docusate Sodium (Colace) 100 mg PO TID [facility] Last Admin: 12/22/18 17:08 Dose: Not Given Gabapentin (Neurontin) 400 mg PO BID [facility] Hydromorphone HCl (Dilaudid) 2 mg IVP Q6 PRN PRN Reason: Pain, severe (8-10) Last Admin: 12/22/18 17:05 Dose: 2 mg Insulin Glargine (Lantus) 25 unit SC HS KAREN Insulin Human Regular (Novolin R) 0 unit SC ACHS KAREN; Protocol Last Admin: 12/22/18 17:06 Dose: 10 units Ondansetron HCl (Zofran Tab) 8 mg PO Q8 PRN PRN Reason: Nausea/Vomiting Pantoprazole Sodium (Protonix Ec Tab) 40 mg PO DAILY [facility] Sucralfate (Carafate Oral Susp) 1 gm PO QID KAREN Last Admin: 12/22/18 17:06 Dose: 1 gm Results - Vital Signs Recent Vital Signs: Last Vital Signs Temp 98.3 F 12/22/18 15:30 Pulse 97 H 12/22/18 16:33 Resp 20 12/22/18 15:30 BP 169/95 H 12/22/18 15:30 Pulse Ox 99 12/22/18 15:30 - Labs Result Diagrams: 12/22/18 06:06 12/22/18 06:06 Labs: Laboratory Results - last 24 hr 12/22/18 12/22/18 12/22/18 06:06 06:06 06:06 WBC 8.8 RBC 2.68 L Hgb 8.0 L Hct 24.9 L MCV 93.2 MCH 29.9 MCHC 32.1 L RDW 17.7 H Plt Count 433 H MPV 8.4 Neut % (Auto) 76.6 H Lymph % (Auto) 10.8 L [place] % (Auto) 3.3 Eos % (Auto) 7.8 H Baso % (Auto) 1.5 Neut # (Auto) 6.8 Lymph # (Auto) 0.9 L [place] # (Auto) 0.3 Eos # (Auto) 0.7 Baso # (Auto) 0.1 pO2 VBG pH VBG pCO2 VBG HCO3 VBG Total CO2 VBG O2 Sat (Calc) VBG Base Excess VBG Potassium Glucose Lactate Crit Value Called To Crit Value Called By Crit Value Read Back Blood Gas Notified Time Sodium 133 Potassium 5.5 H Chloride 88 L Carbon Dioxide 19 L Anion Gap 31 H BUN 99 H Creatinine 9.7 H* Est GFR ( Amer) 6 Est GFR (Non-Af Amer) 5 POC Glucose (mg/dL) Random Glucose 594 H* D Calcium 5.3 L* D Magnesium 2.0 Total Bilirubin 0.6 AST 119 H D ALT 82 H D Alkaline Phosphatase 208 H D NT-Pro-B Natriuret Pep 06222 H Total Protein 7.7 Albumin 4.3 Globulin 3.4 Albumin/Globulin Ratio 1.3 Beta HCG, Quant < 2.39 Venous Blood Potassium 12/22/18 12/22/18 12/22/18 06:08 11:52 16:20 WBC RBC Hgb Hct MCV MCH MCHC RDW Plt Count MPV Neut % (Auto) Lymph % (Auto) [place] % (Auto) Eos % (Auto) Baso % (Auto) Neut # (Auto) Lymph # (Auto) [place] # (Auto) Eos # (Auto) Baso # (Auto) pO2 57 H VBG pH 7.33 VBG pCO2 37 L VBG HCO3 20.1 VBG Total CO2 20.6 L VBG O2 Sat (Calc) 85.7 H VBG Base Excess -5.8 L VBG Potassium 4.6 Glucose 513 H* Lactate 0.6 L Crit Value Called To Dr young Crit Value Called By Karin larson Crit Value Read Back Y Blood Gas Notified Time 615 Sodium 138.0 Potassium Chloride 102.0 Carbon Dioxide Anion Gap BUN Creatinine Est GFR ( Amer) Est GFR (Non-Af Amer) POC Glucose (mg/dL) 311 H 402 H* Random Glucose Calcium Magnesium Total Bilirubin AST ALT Alkaline Phosphatase NT-Pro-B Natriuret Pep Total Protein Albumin Globulin Albumin/Globulin Ratio Beta HCG, Quant Venous Blood Potassium 4.6 Assessment & Plan - Assessment and Plan (Free Text) Assessment: ESRD ON HD M W F AND SAT .. WAS GIVEN STAT HD TODAY P.EDEMA .. CHF .. F OVERLOAD .. WAS GIVEN STAT HD TODAY WITH UF OF 4 LITRE ANEMIA OF CKD .. START EPO AND VENOFER HYPOCALCEMIA .. HD WILL HELP .. ADD CA CARBONATE PHOS BINDER MMP P : STAT HD GIVEN FOR ELECTROLYTES ABN AND FLIUD OVERLOAD RENAL AND DIABETIC DIET .. 2 GM NA , 2 GM K , 100 ENRIQUETA ADA ,1000 CC FR C/O CURRENT MEDS NEEDS DIETARY CONSULT AND COUNCELLING - Date & Time Date: 12/22/18 Time: 15:00
[2018-12-22] MEDS ORDERED: (Lantus) Insulin Glargine, Recombinant SC SCH (22:00)
[2018-12-23] MEDS: Albuterol-Ipratrop 3 mg / 0.5 (3 ml) UD INH SCH ×3 (07:57→15:46)
[2018-12-23] MEDS: (Novolin R) Insulin Human Regular 100 units/ml vial SC SCH ×2 (08:23→12:23)
[2018-12-23] MEDS: Sucralfate 1 gm/10 ml Oral Susp UD PO SCH ×2 (09:11→14:44)
[2018-12-23] MEDS ORDERED: Pantoprazole 40 mg EC Tab PO SCH (10:00)
[2018-12-23] MEDS ORDERED: DiphenhydrAMINE 50 mg/ml Inj IVP ONE (14:00)
[2018-12-23 14:20] LABS: BASO # 0.1 K/uL (0.0-0.2); BASO % 1.4 % (0.0-2.0); EOS # 1.4 K/uL (0.0-0.7); EOS % 15.7 % (0.0-4.0); HEMOGLOBIN 8.1 g/dL (11.0-16.0); LYMPH # 1.6 K/uL (1.0-4.3); LYMPH % 17.7 % (20.0-40.0); MEAN CELL VOLUME 92.8 fL (81.0-99.0); MEAN CORPUSCULAR HEMOGLOBIN 30.7 pg (27.0-31.0); MEAN CORPUSCULAR HGB CONC 33.1 g/dL (33.0-37.0); MEAN PLATELET VOLUME 7.7 fL (7.2-11.7); MONO # 0.4 K/uL (0.0-0.8); NEUT # 5.4 K/uL (1.8-7.0); NEUT % 60.2 % (50.0-75.0); RBC 2.64 Mil/uL (3.80-5.20); RED CELL DISTRIBUTION WIDTH 17.7 % (11.5-14.5); WHITE BLOOD COUNT 8.9 K/uL (4.8-10.8)
[2018-12-23 14:40] LABS: ALB/GLOB RATIO 1.2 (1.0-2.1); ALBUMIN 4.3 g/dL (3.5-5.0); CALCIUM 7.4 mg/dl (8.6-10.4)
--- NOTE | 2018-12-23 14:44 | CP.PCM.PN ---
Subjective - Date & Time of Evaluation Date of Evaluation: 12/23/18 Time of Evaluation: 14:44 - Subjective Subjective: PATIENT SEEN AND EXAMINED AT THE BEDSIDE Objective - Vital Signs/Intake and Output Vital Signs (last 24 hours): Temp Pulse Resp BP Pulse Ox 98 F 84 18 173/105 H 98 12/23/18 13:40 12/23/18 13:40 12/23/18 13:40 12/23/18 14:40 12/23/18 13:40 - Medications Medications: Current Medications Albuterol/Ipratropium (Duoneb 3 Mg/0.5 Mg (3 Ml) Ud) 3 ml INH RQID [facility] Last Admin: 12/23/18 12:16 Dose: Not Given Amlodipine Besylate (Norvasc) 5 mg PO DAILY [facility] Last Admin: 12/23/18 09:11 Dose: 5 mg Aspirin (Ecotrin) 81 mg PO DAILY [facility] Last Admin: 12/23/18 09:11 Dose: 81 mg Calcium Acetate (Phoslo) 667 mg PO TID [facility] Last Admin: 12/23/18 14:44 Dose: Not Given Carvedilol (Coreg) 3.125 mg PO BID [facility] Last Admin: 12/23/18 09:11 Dose: Not Given Clonidine HCl (Catapres) 0.3 mg PO BID [facility] Last Admin: 12/23/18 09:11 Dose: 0.3 mg Diphenhydramine HCl (Benadryl) 25 mg PO Q6 PRN PRN Reason: Itching / Pruritus Last Admin: 12/23/18 05:25 Dose: 25 mg Docusate Sodium (Colace) 100 mg PO TID [facility] Last Admin: 12/23/18 14:44 Dose: Not Given Gabapentin (Neurontin) 400 mg PO BID [facility] Heparin Sodium (Porcine) (Heparin) 5,000 units SC Q12 [facility] Last Admin: 12/23/18 09:11 Dose: Not Given Hydromorphone HCl (Dilaudid) 2 mg IVP Q6 PRN PRN Reason: Pain, severe (8-10) Last Admin: 12/23/18 12:23 Dose: 2 mg Insulin Glargine (Lantus) 25 unit SC HS [facility] Last Admin: 12/22/18 21:38 Dose: 25 unit Insulin Human Regular (Novolin R) 0 unit SC ACHS [facility]; Protocol Last Admin: 12/23/18 12:23 Dose: 6 units Ondansetron HCl (Zofran Tab) 8 mg PO Q8 PRN PRN Reason: Nausea/Vomiting Pantoprazole Sodium (Protonix Ec Tab) 40 mg PO DAILY [facility] Last Admin: 12/23/18 09:11 Dose: 40 mg Sucralfate (Carafate Oral Susp) 1 gm PO QID [facility] Last Admin: 12/23/18 14:44 Dose: Not Given - Labs Labs: 12/23/18 14:12 12/23/18 14:12 Assessment and Plan - Assessment and Plan (Free Text) Assessment: FOLLOW UP WITH PMD AND LINING PRINTER IN THEIR OFFICE CONTINUE HOME MEDICATION ACTIVITY TOLERATED AND HEMODIALYSIS SCHEDULE CALL DR Edilia CARVALHO OR GO TO THE EMERGENCY ROOM IF SYMPTOM RETURN OR WORSENING
[2018-12-23 17:52] VITALS: BP 221/122; PULSE 95; RESP 21; TEMP 98.2; O2SAT 97
--- NOTE | 2018-12-23 17:53 | CARD ---
APPROVED REPORT Date of service: 12/22/2018 EKG Measurement Heart [id number] <Conclusion> Normal sinus rhythm Minimal voltage criteria for LVH, may be normal variant Prolonged QT Abnormal ECG
--- NOTE | 2018-12-23 21:30 | CP.PCM.DIS ---
Provider - Provider Date of Admission: 12/22/18 07:46 Attending physician: Florence Sexton MD Consults: 12/22/18 07:49 Critical Care Consult Stat Comment: Consulting Provider: Leigha Castro Consulting Physician: Leigha Castro Reason for Consult: hypocalcemia Nephrology Consult Stat Comment: Consulting Provider: Jesus Phillips Consulting Physician: Jesus Phillips Reason for Consult: ESRD Time Spent in preparation of Discharge (in minutes): 25 Hospital Course - Lab Results Lab Results: Micro Results 12/22/18 06:00 Blood Blood Culture - Preliminary NO GROWTH AFTER 24 HOURS 12/22/18 05:30 Blood Blood Culture - Preliminary NO GROWTH AFTER 24 HOURS Most Recent Lab Values WBC 8.9 K/uL (4.8-10.8) 12/23/18 14:12 RBC 2.64 Mil/uL (3.80-5.20) L 12/23/18 14:12 Hgb 8.1 g/dL (11.0-16.0) L 12/23/18 14:12 Hct 24.5 % (34.0-47.0) L 12/23/18 14:12 MCV 92.8 fL (81.0-99.0) 12/23/18 14:12 MCH 30.7 pg (27.0-31.0) 12/23/18 14:12 MCHC 33.1 g/dL (33.0-37.0) 12/23/18 14:12 RDW 17.7 % (11.5-14.5) H 12/23/18 14:12 Plt Count 561 K/uL (130-400) H D 12/23/18 14:12 MPV 7.7 fL (7.2-11.7) 12/23/18 14:12 Neut % (Auto) 60.2 % (50.0-75.0) 12/23/18 14:12 Lymph % (Auto) 17.7 % (20.0-40.0) L 12/23/18 14:12 [place] % (Auto) 5.0 % (0.0-10.0) 12/23/18 14:12 Eos % (Auto) 15.7 % (0.0-4.0) H 12/23/18 14:12 Baso % (Auto) 1.4 % (0.0-2.0) 12/23/18 14:12 Neut # (Auto) 5.4 K/uL (1.8-7.0) 12/23/18 14:12 Lymph # (Auto) 1.6 K/uL (1.0-4.3) 12/23/18 14:12 [place] # (Auto) 0.4 K/uL (0.0-0.8) 12/23/18 14:12 Eos # (Auto) 1.4 K/uL (0.0-0.7) H 12/23/18 14:12 Baso # (Auto) 0.1 K/uL (0.0-0.2) 12/23/18 14:12 pO2 57 mm/Hg (30-55) H 12/22/18 06:08 VBG pH 7.33 (7.32-7.43) 12/22/18 06:08 VBG pCO2 37 mmHg (40-60) L 12/22/18 06:08 VBG HCO3 20.1 mmol/L 12/22/18 06:08 VBG Total CO2 20.6 mmol/L (22-28) L 12/22/18 06:08 VBG O2 Sat (Calc) 85.7 % (40-65) H 12/22/18 06:08 VBG Base Excess -5.8 mmol/L (0.0-2.0) L 12/22/18 06:08 VBG Potassium 4.6 mmol/L (3.6-5.2) 12/22/18 06:08 Sodium 138.0 mmol/l (132-148) 12/22/18 06:08 Chloride 102.0 mmol/L (98-107) 12/22/18 06:08 Glucose 513 mg/dl (65-105) H* 12/22/18 06:08 Lactate 0.6 mmol/L (0.7-2.1) L 12/22/18 06:08 Crit Value Called To Dr young 12/22/18 06:08 Crit Value Called By Karin larson 12/22/18 06:08 Crit Value Read Back Y 12/22/18 06:08 Blood Gas Notified Time 615 12/22/18 06:08 Sodium 139 mmol/L (132-148) 12/23/18 14:12 Potassium 4.8 mmol/L (3.6-5.2) 12/23/18 14:12 Chloride 92 mmol/L (98-107) L 12/23/18 14:12 Carbon Dioxide 27 mmol/L (22-30) 12/23/18 14:12 Anion Gap 25 (10-20) H 12/23/18 14:12 BUN 63 mg/dL (7-17) H 12/23/18 14:12 Creatinine 8.3 mg/dL (0.7-1.2) H* 12/23/18 14:12 Est GFR ( Amer) 7 12/23/18 14:12 Est GFR (Non-Af Amer) 6 12/23/18 14:12 POC Glucose (mg/dL) 54 mg/dL (65-110) L 12/23/18 17:38 Random Glucose 227 mg/dL (65-105) H D 12/23/18 14:12 Calcium 7.4 mg/dl (8.6-10.4) L 12/23/18 14:12 Magnesium 2.1 mg/dL (1.6-2.3) 12/23/18 14:12 Total Bilirubin 0.5 mg/dL (0.2-1.3) 12/23/18 14:12 AST 46 U/L (14-36) H D 12/23/18 14:12 ALT 58 U/L (9-52) H D 12/23/18 14:12 Alkaline Phosphatase 170 U/L (38-126) H 12/23/18 14:12 NT-Pro-B Natriuret Pep 76452 pg/mL (0-450) H 12/22/18 06:06 Total Protein 7.9 g/dL (6.3-8.3) 12/23/18 14:12 Albumin 4.3 g/dL (3.5-5.0) 12/23/18 14:12 Globulin 3.6 gm/dL (2.2-3.9) 12/23/18 14:12 Albumin/Globulin Ratio 1.2 (1.0-2.1) 12/23/18 14:12 Beta HCG, Quant < 2.39 mIU/ML 12/22/18 06:06 Venous Blood Potassium 4.6 mmol/L (3.6-5.2) 12/22/18 06:08 - Hospital Course Hospital Course: 33-year-old female with history of CAD CHF end-stage renal disease diabetic with endorgan damage like diabetic gastroparesis hepatitis hypertension high cholesterol pancreatitis peripheral edema noncompliance admitted again with the shortness of breath missed hemodialysis and the chest pain because patient has a severe shortness of breath eventually came Dr. Isaac was paged patient's blood pressure was high so given medications patient's eventually admitted after ICU denied consultations eventually patient is admitted for further work-up for missed hemodialysis blood pressure medications given eventually patient is admitted Discharge Exam - Head Exam Head Exam: ATRAUMATIC, NORMAL INSPECTION, NORMOCEPHALIC - Eye Exam Eye Exam: EOMI, Normal appearance, PERRL Pupil Exam: NORMAL ACCOMODATION, PERRL - Respiratory Exam Respiratory Exam: Decreased Breath Sounds - Cardiovascular Exam Cardiovascular Exam: REGULAR RHYTHM, +S1, +S2 - GI/Abdominal Exam GI & Abdominal Exam: Diminished Bowel Sounds, Soft - Rectal Exam Rectal Exam: Deferred - Neurological Exam Neurological exam: Oriented x3 Discharge Plan - Follow Up Plan Condition: STABLE Disposition: HOME/ ROUTINE Instructions: Hyperkalemia (DC), Hypocalcemia (DC), Diabetes and Diet Additional Instructions: FOLLOW UP WITH PMD AND PODIATRY PROFESSOR IN THEIR OFFICE CONTINUE HOME MEDICATION ACTIVITY TOLERATED AND HEMODIALYSIS SCHEDULED CALL DR Edilia SEXTON OR GO TO THE EMERGENCY ROOM IF SYMPTOM RETURN OR WORSENING Referrals: Leigha Castro MD [Staff Provider] - Kim Sexton MD [Staff Provider] -
== END 2018-12-23 18:15 | disposition home or self-care (01) | DRG 127 ==
LOC: C.ER 04:40 → C.9E 07:46 → C.5S 08:08
PROVIDERS: ADMIT Internal Medicine Nephrology; ATTEND Internal Medicine Nephrology
PROC: 5A1D70Z Performance of Urinary Filtration, Intermittent, Less than 6 Hours Per Day (ICD-10-PCS; principal; 2018-12-23)
DX: I13.2 Hypertensive heart and chronic kidney disease with heart failure and with stage 5 chronic kidney disease, or end stage renal disease (principal); N18.6 End stage renal disease; I50.9 Heart failure, unspecified; E11.43 Type 2 diabetes mellitus with diabetic autonomic (poly)neuropathy; R09.02 Hypoxemia; E11.22 Type 2 diabetes mellitus with diabetic chronic kidney disease; E11.65 Type 2 diabetes mellitus with hyperglycemia; E87.5 Hyperkalemia; K75.9 Inflammatory liver disease, unspecified; K31.84 Gastroparesis; Z91.19 Patient's noncompliance with other medical treatment and regimen; Z95.5 Presence of coronary angioplasty implant and graft; Z99.2 Dependence on renal dialysis; E03.9 Hypothyroidism, unspecified; D63.1 Anemia in chronic kidney disease; E78.00 Pure hypercholesterolemia, unspecified; E83.51 Hypocalcemia; G47.30 Sleep apnea, unspecified; I25.10 Atherosclerotic heart disease of native coronary artery without angina pectoris; Z87.891 Personal history of nicotine dependence

== ENCOUNTER 2018-12-28 20:04 | Inpatient (IN) | payer MEDICAID ==
[2018-12-28 20:04] VITALS: BMI 30.2
[2018-12-28 21:13] LABS: BASO # 0.1 K/uL (0.0-0.2); BASO % 1.3 % (0.0-2.0); LYMPH # 1.5 K/uL (1.0-4.3); MONO # 0.4 K/uL (0.0-0.8); WHITE BLOOD COUNT 8.2 K/uL (4.8-10.8)
--- NOTE | 2018-12-28 21:18 | C.PDOC ---
History Of Present Illness 33 y/o female, with history of diabetes and a dialysis patient on M// schedule, presents to ED complaining of SOB and cough. States she drank a lot of fluids in the weekend and now feels like she is retaining fluid. She denies any chest pain, nausea, vomiting, fever, or chills. Last HD was yesterday. Time Seen by Provider: 12/28/18 20:34 Chief Complaint (Nursing): Shortness Of Breath History Per: Patient History/Exam Limitations: no limitations Onset/Duration Of Symptoms: Days Current Symptoms Are (Timing): Still Present Past Medical History Reviewed: Historical Data, Nursing Documentation, Vital Signs Vital Signs: Last Vital Signs Temp 98.9 F 12/28/18 20:12 Pulse 91 H 12/28/18 20:12 Resp 20 12/28/18 20:12 BP 129/71 12/28/18 20:12 Pulse Ox 80 L 12/28/18 20:12 Primary Care Provider: Kim Bearden - Medical History PMH: Anemia, Anxiety, Asthma, Bronchitis, CHF, Diabetes, Fractures (LEFT FOOT), Gastritis, Gastrointestinal Ulcer (gastroparesis), Gall Bladder Disease, Hepatitis, HTN, Hypercholesterolemia, Hyperthyroidism, Hypothyroidism, Kidney Stones, Pancreatitis, Peripheral Edema, Pneumonia, End Stage Renal Disease, Chronic Kidney Disease, Seizures, Sleep Apnea, Chronic Pain Surgical History: Cholecystectomy, Coronary Stent (x1) - [facility] Procedures (12/22/18) ASSISTANCE WITH RESPIRATORY VENTILATION, 24-96 HRS, CPAP (11/27/16) CAUTERY TO STOP EPISTAX (03/22/14) CENTRAL VENOUS CATHETER PLACEMENT WITH GUIDANCE (11/06/14) DIALYSIS ARTERIOVENOSTOM (01/10/14) DILATION OF L INNOM VEIN WITH INTRALUM DEV, PERC APPROACH (09/24/18) DILATION OF LEFT SUBCLAVIAN VEIN, PERCUTANEOUS APPROACH (09/03/17) DRAINAGE OF RIGHT FOOT SKIN, EXTERNAL APPROACH (07/17/16) DRAINAGE OF RIGHT LOWER ARM SKIN, EXTERNAL APPROACH (05/25/16) ESOPHAGOGASTRODUODENOSCOPY [EGD] W/CLOSED BIOPSY (03/03/14) EXCISION OF LEFT TOE PHALANX, OPEN APPROACH (07/12/17) EXCISION OF STOMACH, ENDO, DIAGN (05/09/16) EXTIRPATE MATTER FROM R LOW ARM SUBCU/FASCIA, PERC (05/25/16) EXTRACTION OF RIGHT FOOT SKIN, EXTERNAL APPROACH (05/25/16) EXTRACTION OF TOE NAIL, EXTERNAL APPROACH (07/12/17) FLEXIBLE SIGMOIDOSCOPY (10/26/14) FLUOROSCOPY OF DIALYSIS SHUNT/FISTULA USING L OSM CONTRAST (09/24/18) FLUOROSCOPY OF LEFT SUBCLAVIAN VEIN USING OTHER CONTRAST (09/03/17) FLUOROSCOPY OF R JUGULAR VEIN USING L OSM CONTRAST, GUIDANCE (12/13/15) FLUOROSCOPY OF RIGHT SUBCLAVIAN VEIN, GUIDANCE (08/07/16) HEMODIALYSIS (04/05/15) INDIVIDUAL PSYCHOTHERAPY, SUPPORTIVE (10/12/18) INJECT INSULIN (12/23/12) INJECT/INFUSE ELECTROLYT (12/23/12) INJECT/INFUSE NEC (01/17/15) INSERT INFUSION DEV IN R INT JUGULAR VEIN, PERC (02/23/16) INSERT VAD RESERVOIR IN CHEST SUBCU/FASCIA, OPEN (08/19/17) INSERTION OF INFUSION DEV INTO R BASILIC VEIN, PERC APPROACH (04/18/16) INSERTION OF INFUSION DEV INTO R BRACH VEIN, PERC APPROACH (02/19/17) INSERTION OF INFUSION DEV INTO R SUBCLAV VEIN, PERC APPROACH (08/29/16) INSERTION OF INFUSION DEV INTO SUP VENA CAVA, PERC APPROACH (08/19/17) INSERTION OF INFUSION DEVICE INTO R ATRIUM, PERC APPROACH (12/13/15) INSERTION OF VAD INTO CHEST SUBCU/FASCIA, OPEN APPROACH (12/13/15) MEASURE OF CARDIAC SAMPL & PRESSURE, L HEART, PERC APPROACH (10/09/16) OTHER ENDOSCOPY OF SM INTEST (08/25/14) PACKED CELL TRANSFUSION (10/26/14) PERFORMANCE OF URINARY FILTRATION, MULTIPLE (03/19/17) PERFORMANCE OF URINARY FILTRATION, SINGLE (11/27/16) PLAIN RADIOGRAPHY OF LEFT HEART USING OTHER CONTRAST (10/09/16) PLAIN RADIOGRAPHY OF MULT COR ART USING OTH CONTRAST (10/09/16) PLICATION OF VENA CAVA (03/22/14) POST NASAL PAC FOR EPIST (03/22/14) REMOVAL OF VAD FROM TRUNK SUBCU/FASCIA, OPEN APPROACH (02/23/16) RESECTION OF TOE NAIL, EXTERNAL APPROACH (08/19/17) MELVIN KENNY DIALYSIS SHUNT (03/03/14) THERAPEUTIC ERYTHROCYTAPHERESIS (10/26/14) TRANSFUSE NONAUT RED BLOOD CELLS IN PERIPH VEIN, PERC (02/19/17) ULTRASONOGRAPHY OF RIGHT AND LEFT HEART, TRANSESOPHAGEAL (02/19/17) ULTRASONOGRAPHY OF RIGHT SUBCLAVIAN VEIN, GUIDANCE (08/29/16) ULTRASONOGRAPHY OF RIGHT UPPER EXTREMITY VEINS, GUIDANCE (02/19/17) VACCINATION NEC (10/26/14) VENOUS CATHETERIZATION FOR RENAL DIALYSIS (03/03/14) Family History: States: No Known Family Hx - Social History Hx Tobacco Use: No Hx Alcohol Use: No Hx Substance Use: No - Immunization History Hx Tetanus Toxoid Vaccination: No Hx Influenza Vaccination: Yes Hx Pneumococcal Vaccination: Yes Review Of Systems Except As Marked, All Systems Reviewed And Found Negative. Constitutional: Negative for: Fever, Chills Cardiovascular: Negative for: Chest Pain Respiratory: Positive for: Cough, Shortness of Breath Gastrointestinal: Negative for: Nausea, Vomiting Genitourinary: Negative for: Dysuria, Hematuria Physical Exam - Physical Exam Appears: Non-toxic, No Acute Distress Skin: Warm, Dry Head: Normacephalic Eye(s): bilateral: Normal Inspection Oral Mucosa: Moist Neck: Supple Chest: Other (port on right upper chest wall) Cardiovascular: Rhythm Regular, No Murmur Respiratory: No Rales, No Rhonchi, Other (faint crackles at base) Gastrointestinal/Abdominal: Soft, Distention, No Guarding, No Rebound Extremity: Other (+1 pitting edema on lower extremities) Extremity: Bilateral: Normal ROM Neurological/Psych: Oriented x3, Normal Speech ED Course And Treatment - Laboratory Results Result Diagrams: 12/28/18 21:10 12/28/18 21:10 O2 Sat by Pulse Oximetry: 80 (RA) Pulse Ox Interpretation: Abnormal Medical Decision Making Medical Decision Making: Plan: --EKG --Labs --Chest XR O2 sat on 2L NC O2 is 96%. Glucose 522, 10 units reg insulin ordered. Hgb 8.0 was 8.1 at d/c on 12/23/18 22:10 case d/w dr bearden, will admit to his service, dr del castillo for consult for HD Disposition Counseled Patient/Family Regarding: Studies Performed, Diagnosis - Disposition Disposition: HOSPITALIZED Disposition Time: 22:24 Condition: STABLE - Clinical Impression Clinical Impression: Hyperglycemia, Dyspnea, ESRD (end stage renal disease) on dialysis, CHF (congestive heart failure) - Scribe Statement The provider has reviewed the documentation as recorded by the Kwadwoibe Kasey oRgers Provider Attestation: All medical record entries made by the Kwadwoibe were at my direction and personally dictated by me. I have reviewed the chart and agree that the record accurately reflects my personal performance of the history, physical exam, medical decision making, and the department course for this patient. I have also personally directed, reviewed, and agree with the discharge instructions and disposition.
[2018-12-28 21:25] LABS: EOS % 12.1 % (0.0-4.0); LYMPH % 17.9 % (20.0-40.0); MEAN CELL VOLUME 96.2 fL (81.0-99.0); MEAN CORPUSCULAR HEMOGLOBIN 30.6 pg (27.0-31.0); MEAN CORPUSCULAR HGB CONC 31.8 g/dL (33.0-37.0); MEAN PLATELET VOLUME 7.6 fL (7.2-11.7); MONO % 4.8 % (0.0-10.0); NEUT # 5.3 K/uL (1.8-7.0); NEUT % 63.9 % (50.0-75.0); NRBC % 0.1 % (0.0-2.0); RBC 2.61 Mil/uL (3.80-5.20); RED CELL DISTRIBUTION WIDTH 18.9 % (11.5-14.5)
[2018-12-28 21:40] LABS: ALB/GLOB RATIO 1.1 (1.0-2.1); ALT/SGPT 25 U/L (9-52); AST/SGOT 24 U/L (14-36); BLOOD UREA NITROGEN 51 mg/dL (7-17); CALCIUM 7.5 mg/dl (8.6-10.4); GFR NON-AFRICAN AMERICAN 8
[2018-12-28] MEDS ORDERED: (Novolin R) Insulin Human Regular 100 units/ml vial IVP ONE (21:46)
[2018-12-28] MEDS ORDERED: (Novolin R) Insulin Human Regular 100 units/ml vial ONE (21:55)
[2018-12-29] MEDS: DiphenhydrAMINE 50 mg/ml Inj IVP PRN ×6 (01:00→21:32)
[2018-12-29] MEDS: HYDROmorphone 0.5 mg/0.5 ml ISec IVP PRN ×6 (01:01→21:32)
[2018-12-29] MEDS: (Novolin R) Insulin Human Regular 100 units/ml vial SC SCH ×4 (07:31→21:20)
--- NOTE | 2018-12-29 08:36 | RAD ---
HISTORY: SOB COMPARISON: Chest x-ray performed 12/22/18 TECHNIQUE: Chest, one view. FINDINGS: MediPort extends to the cavoatrial junction. LUNGS: Moderate interstitial prominence may reflect infection or edema. Central vascular congestion. PLEURA: No significant pleural effusion identified. No definite pneumothorax . CARDIOVASCULAR: Cardiomegaly. Endovascular stent. No significant atherosclerotic calcification present. OSSEOUS STRUCTURES: No acute osseous abnormality identified. VISUALIZED UPPER ABDOMEN: Unremarkable. OTHER FINDINGS: None. IMPRESSION: Cardiomegaly. Central vascular congestion. Moderate interstitial markings may reflect infection or edema. Constellation of findings consistent with CHF. Right-sided MediPort catheter.
[2018-12-29] MEDS: Pantoprazole 40 mg EC Tab PO SCH (09:11)
[2018-12-29] MEDS: Sucralfate 1 gm/10 ml Oral Susp UD PO SCH ×4 (09:12→21:32)
[2018-12-29] MEDS ORDERED: Ergocalciferol 50,000 Intl Units Cap ONE (10:00)
[2018-12-29] MEDS ORDERED: Ergocalciferol 50,000 Intl Units Cap PO SCH (10:00)
[2018-12-29] MEDS: Albuterol-Ipratrop 3 mg / 0.5 (3 ml) UD IH PRN ×2 (11:10→19:22)
--- NOTE | 2018-12-29 11:14 | CP.PCM.HP ---
Past Patient History - Infectious Disease Hx of Infectious Diseases: None - Tetanus Immunizations Tetanus Immunization: Unknown - Past Medical History & Family History Past Medical History?: Yes - Past Social History Smoking Status: Never Smoked - CARDIAC Hx Cardiac Disorders: Yes Hx Congestive Heart Failure: Yes Hx Hypercholesterolemia: Yes Hx Hypertension: Yes Hx Peripheral Edema: Yes - PULMONARY Hx Respiratory Disorders: Yes Hx Asthma: Yes Hx Bronchitis: Yes Hx Pneumonia: Yes Hx Sleep Apnea: Yes - NEUROLOGICAL Hx Neurological Disorder: Yes Hx Seizures: Yes - HEENT Hx HEENT Problems: Yes Hx Cataracts: Yes (BOTH EYES) Hx Glaucoma: Yes (BOTH EYES) - RENAL Hx Chronic Kidney Disease: Yes Date of Last Dialysis Treatment: 12/27/18 Hx Kidney Stones: Yes - ENDOCRINE/METABOLIC Hx Endocrine Disorders: Yes Hx Hyperthyroidism: Yes Hx Hypothyroidism: Yes - HEMATOLOGICAL/ONCOLOGICAL Hx Blood Disorders: Yes Hx Anemia: Yes - INTEGUMENTARY Hx Dermatological Problems: Yes Other/Comment: DRY ITCHY SKIN ;multiple/generalized dark spots on skin. left toe blister - MUSCULOSKELETAL/RHEUMATOLOGICAL Hx Musculoskeletal Disorders: Yes Hx Falls: No Hx Fractures: Yes (LEFT FOOT) - GASTROINTESTINAL Hx Gastrointestinal Disorders: Yes Hx Gall Bladder Disease: Yes Hx Gastritis: Yes Hx Pancreatitis: Yes - GENITOURINARY/GYNECOLOGICAL Hx Genitourinary Disorders: No - PSYCHIATRIC Hx Psychophysiologic Disorder: Yes Hx Anxiety: Yes Hx Substance Use: No - SURGICAL HISTORY Hx Surgeries: Yes Hx Cholecystectomy: Yes Hx Coronary Stent: Yes (x1) - ANESTHESIA Hx Anesthesia: Yes Hx Anesthesia Reactions: No Hx Malignant Hyperthermia: No Meds Allergies/Adverse Reactions: Allergies Allergy/AdvReac Type Severity Reaction Status Date / Time ketorolac tromethamine Allergy RASH Verified 12/28/18 20:14 [From Toradol] latex Allergy RASH Verified 12/28/18 20:14 morphine Allergy RASH Verified 12/28/18 20:14 tramadol Allergy RASH Verified 12/28/18 20:14 Physical Exam - Constitutional Appears: Well - Head Exam Head Exam: ATRAUMATIC, NORMAL INSPECTION, NORMOCEPHALIC - Eye Exam Eye Exam: EOMI, Normal appearance, PERRL Pupil Exam: NORMAL ACCOMODATION, PERRL - ENT Exam ENT Exam: Mucous Membranes Moist, Normal Exam - Neck Exam Neck exam: Positive for: Normal Inspection - Respiratory Exam Respiratory Exam: Decreased Breath Sounds - Cardiovascular Exam Cardiovascular Exam: REGULAR RHYTHM, +S1, +S2 - GI/Abdominal Exam GI & Abdominal Exam: Diminished Bowel Sounds, Soft - Rectal Exam Rectal Exam: Deferred - Neurological Exam Neurological exam: Oriented x3 Results - Vital Signs Recent Vital Signs: Last Vital Signs Temp 98 F 12/29/18 07:00 Pulse 93 H 12/29/18 07:00 Resp 20 12/29/18 07:00 BP 159/93 H 12/29/18 07:00 Pulse Ox 98 12/29/18 07:00 - Labs Result Diagrams: 12/28/18 21:10 12/28/18 21:10 Labs: Laboratory Results - last 24 hr 12/28/18 12/28/18 12/28/18 21:10 21:10 22:15 WBC 8.2 RBC 2.61 L Hgb 8.0 L Hct 25.1 L MCV 96.2 D MCH 30.6 MCHC 31.8 L RDW 18.9 H Plt Count 402 H D MPV 7.6 Neut % (Auto) 63.9 Lymph % (Auto) 17.9 L [place] % (Auto) 4.8 Eos % (Auto) 12.1 H Baso % (Auto) 1.3 Neut # (Auto) 5.3 Lymph # (Auto) 1.5 [place] # (Auto) 0.4 Eos # (Auto) 1.0 H Baso # (Auto) 0.1 Sodium 131 L Potassium 5.2 Chloride 93 L Carbon Dioxide 22 Anion Gap 22 H BUN 51 H Creatinine 6.1 H Est GFR ( Amer) 10 Est GFR (Non-Af Amer) 8 POC Glucose (mg/dL) 428 H* Random Glucose 522 H* D Calcium 7.5 L Magnesium 2.1 Total Bilirubin 0.4 AST 24 ALT 25 Alkaline Phosphatase 168 H Troponin I < 0.0120 Total Protein 7.5 Albumin 4.0 Globulin 3.5 Albumin/Globulin Ratio 1.1 12/28/18 12/29/18 23:15 02:02 WBC RBC Hgb Hct MCV MCH MCHC RDW Plt Count MPV Neut % (Auto) Lymph % (Auto) [place] % (Auto) Eos % (Auto) Baso % (Auto) Neut # (Auto) Lymph # (Auto) [place] # (Auto) Eos # (Auto) Baso # (Auto) Sodium Potassium Chloride Carbon Dioxide Anion Gap BUN Creatinine Est GFR ( Amer) Est GFR (Non-Af Amer) POC Glucose (mg/dL) 259 H 81 Random Glucose Calcium Magnesium Total Bilirubin AST ALT Alkaline Phosphatase Troponin I Total Protein Albumin Globulin Albumin/Globulin Ratio
[2018-12-29] MEDS ORDERED: DiphenhydrAMINE 50 mg/ml Inj IVP ONE (12:30)
[2018-12-29] MEDS: (Lantus) Insulin Glargine, Recombinant SC SCH (21:32)
[2018-12-30] MEDS: DiphenhydrAMINE 50 mg/ml Inj IVP PRN ×6 (01:36→23:02)
[2018-12-30] MEDS: HYDROmorphone 0.5 mg/0.5 ml ISec IVP PRN (01:36)
[2018-12-30] MEDS: (Novolin R) Insulin Human Regular 100 units/ml vial SC SCH ×4 (08:31→23:03)
[2018-12-30] MEDS: Pantoprazole 40 mg EC Tab PO SCH (09:37)
[2018-12-30] MEDS: Sucralfate 1 gm/10 ml Oral Susp UD PO SCH ×4 (09:38→23:00)
[2018-12-30] MEDS: Nystatin 100,000 Units/gm Topical Pow(15 gm) TOP SCH ×2 (12:45→20:24)
[2018-12-30] MEDS ORDERED: DiphenhydrAMINE 50 mg/ml Inj IVP ONE (15:24)
[2018-12-30] MEDS: Epoetin Alfa 10,000 unit/ml Dialysis SC SCH (16:02)
[2018-12-30] MEDS: Ferric Sodium Gluconat Complex 62.5 mg/5 ml Vial IVPB SCH (16:03)
--- NOTE | 2018-12-30 20:56 | CP.PCM.PN ---
Subjective - Date & Time of Evaluation Date of Evaluation: 12/30/18 - Subjective Subjective: patient examined today no nausea no vomiting no fever no dizziness no diarrhea no shortness of breath Objective - Vital Signs/Intake and Output Vital Signs (last 24 hours): Temp Pulse Resp BP Pulse Ox 98.1 F 94 H 16 151/99 H 80 L 12/30/18 18:05 12/30/18 18:05 12/30/18 18:05 12/30/18 18:05 12/30/18 18:34 Intake and Output: 12/30/18 12/31/18 18:59 06:59 Intake Total 50 Balance 50 - Medications Medications: Current Medications Albuterol/Ipratropium (Duoneb 3 Mg/0.5 Mg (3 Ml) Ud) 3 ml IH RQID PRN PRN Reason: Wheezing Last Admin: 12/29/18 19:22 Dose: 3 ml Amlodipine Besylate (Norvasc) 5 mg PO DAILY [facility] Last Admin: 12/30/18 09:37 Dose: 5 mg Aspirin (Ecotrin) 81 mg PO DAILY [facility] Last Admin: 12/30/18 09:38 Dose: 81 mg Calcium Acetate (Phoslo) 667 mg PO TID [facility] Last Admin: 12/30/18 20:17 Dose: 667 mg Carvedilol (Coreg) 3.125 mg PO BID [facility] Last Admin: 12/30/18 20:18 Dose: 3.125 mg Clonidine HCl (Catapres) 0.3 mg PO BID [facility] Last Admin: 12/30/18 20:18 Dose: 0.3 mg Diphenhydramine HCl (Benadryl) 25 mg IVP Q4 PRN PRN Reason: Itching / Pruritus Last Admin: 12/30/18 19:08 Dose: 25 mg Docusate Sodium (Colace) 100 mg PO TID [facility] Last Admin: 12/30/18 20:19 Dose: 100 mg Epoetin James (Procrit) 10,000 unit SC [facility] Last Admin: 12/30/18 16:02 Dose: 10,000 unit Ergocalciferol (Drisdol 50,000 Intl Units Cap) 50,000 cap PO QWK [facility] Last Admin: 12/29/18 09:11 Dose: 50,000 cap Ferric Sodium Gluconate Complex (Ferrlecit) 125 mg IVPB [facility] Stop: 01/07/19 15:31 Last Admin: 12/30/18 16:03 Dose: 125 mg Gabapentin (Neurontin) 400 mg PO BID [facility] Last Admin: 12/30/18 09:38 Dose: 400 mg Heparin Sodium (Porcine) (Heparin) 5,000 units SC BID [facility] Last Admin: 12/30/18 09:44 Dose: Not Given Hydromorphone HCl (Dilaudid) 2 mg IVP Q4H PRN PRN Reason: Pain, severe (8-10) Last Admin: 12/30/18 19:08 Dose: 2 mg Insulin Glargine (Lantus) 25 unit SC HS [facility] Last Admin: 12/29/18 21:32 Dose: 25 unit Insulin Human Regular (Novolin R) 1 unit SC ACHS [facility]; Protocol Last Admin: 12/30/18 20:19 Dose: 3 units Metoclopramide HCl (Reglan) 10 mg PO BID PRN PRN Reason: Nausea/Vomiting Nystatin (Nystop Topical Powder) 1 gm TOP BID [facility] Last Admin: 12/30/18 20:24 Dose: 1 applic Ondansetron HCl (Zofran Inj) 4 mg IVP Q4 PRN PRN Reason: Nausea/Vomiting Last Admin: 12/29/18 03:38 Dose: 4 mg Pantoprazole Sodium (Protonix Ec Tab) 40 mg PO DAILY [facility] Last Admin: 12/30/18 09:37 Dose: 40 mg Sucralfate (Carafate Oral Susp) 1 gm PO QID [facility] Last Admin: 12/30/18 20:16 Dose: 1 gm - Labs Labs: 12/28/18 21:10 12/28/18 21:10 - Constitutional Appears: Well - Head Exam Head Exam: ATRAUMATIC, NORMAL INSPECTION, NORMOCEPHALIC - Eye Exam Eye Exam: EOMI, Normal appearance, PERRL Pupil Exam: NORMAL ACCOMODATION, PERRL - ENT Exam ENT Exam: Mucous Membranes Moist, Normal Exam - Neck Exam Neck Exam: Full ROM, Normal Inspection. absent: Lymphadenopathy - Respiratory Exam Respiratory Exam: Decreased Breath Sounds - Cardiovascular Exam Cardiovascular Exam: REGULAR RHYTHM, +S1, +S2 - GI/Abdominal Exam GI & Abdominal Exam: Soft, Diminished Bowel Sounds - Rectal Exam Rectal Exam: Deferred - Neurological Exam Neurological Exam: Oriented x3 Assessment and Plan - Assessment and Plan (Free Text) Plan: plan discussed with patient and family moderate complexity of care benadryl carafate oral susp catapress colace coreg dilaudid drisdol duoneb ecotrin ferrlecit heparin lantus neurontin norvasc novolin R nystop topical powder phosolo procrit protonix ec tab reglan zofran inj medication reviewed vitals reviewed labs reviewed
[2018-12-30] MEDS: (Lantus) Insulin Glargine, Recombinant SC SCH (23:01)
--- NOTE | 2018-12-30 23:10 | CP.PCM.PN ---
Subjective - Date & Time of Evaluation Date of Evaluation: 12/30/18 Time of Evaluation: 15:00 - Subjective Subjective: SEEN ON RENAL F/U SEEN ON HD RECIEVED HD YESTERDAY AND TODAY WITH EACH HD WE REMOVED 4 L APPROXIMATELY PT WAS INSTRUCTED ON RENAL AND DIABETIC DIET INCLUDING FR Objective - Vital Signs/Intake and Output Vital Signs (last 24 hours): Temp Pulse Resp BP Pulse Ox 98.1 F 94 H 16 151/99 H 80 L 12/30/18 18:05 12/30/18 18:05 12/30/18 18:05 12/30/18 18:05 12/30/18 18:34 Intake and Output: 12/30/18 12/31/18 18:59 06:59 Intake Total 50 Balance 50 - Medications Medications: Current Medications Albuterol/Ipratropium (Duoneb 3 Mg/0.5 Mg (3 Ml) Ud) 3 ml IH RQID PRN PRN Reason: Wheezing Last Admin: 12/29/18 19:22 Dose: 3 ml Amlodipine Besylate (Norvasc) 5 mg PO DAILY [facility] Last Admin: 12/30/18 09:37 Dose: 5 mg Aspirin (Ecotrin) 81 mg PO DAILY [facility] Last Admin: 12/30/18 09:38 Dose: 81 mg Calcium Acetate (Phoslo) 667 mg PO TID [facility] Last Admin: 12/30/18 20:17 Dose: 667 mg Carvedilol (Coreg) 3.125 mg PO BID [facility] Last Admin: 12/30/18 20:18 Dose: 3.125 mg Clonidine HCl (Catapres) 0.3 mg PO BID [facility] Last Admin: 12/30/18 20:18 Dose: 0.3 mg Diphenhydramine HCl (Benadryl) 25 mg IVP Q4 PRN PRN Reason: Itching / Pruritus Last Admin: 12/30/18 23:02 Dose: 25 mg Docusate Sodium (Colace) 100 mg PO TID [facility] Last Admin: 12/30/18 20:19 Dose: 100 mg Epoetin James (Procrit) 10,000 unit SC MWF [facility] Last Admin: 12/30/18 16:02 Dose: 10,000 unit Ergocalciferol (Drisdol 50,000 Intl Units Cap) 50,000 cap PO QWK [facility] Last Admin: 12/29/18 09:11 Dose: 50,000 cap Ferric Sodium Gluconate Complex (Ferrlecit) 125 mg IVPB MWF [facility] Stop: 01/07/19 15:31 Last Admin: 12/30/18 16:03 Dose: 125 mg Gabapentin (Neurontin) 400 mg PO BID [facility] Last Admin: 12/30/18 17:52 Dose: 400 mg Heparin Sodium (Porcine) (Heparin) 5,000 units SC BID [facility] Last Admin: 12/30/18 17:53 Dose: 5,000 units Hydromorphone HCl (Dilaudid) 2 mg IVP Q4H PRN PRN Reason: Pain, severe (8-10) Last Admin: 12/30/18 23:02 Dose: 2 mg Insulin Glargine (Lantus) 25 unit SC HS [facility] Last Admin: 12/30/18 23:01 Dose: 25 unit Insulin Human Regular (Novolin R) 1 unit SC [facility]; Protocol Last Admin: 12/30/18 23:03 Dose: Not Given Metoclopramide HCl (Reglan) 10 mg PO BID PRN PRN Reason: Nausea/Vomiting Nystatin (Nystop Topical Powder) 1 gm TOP BID [facility] Last Admin: 12/30/18 20:24 Dose: 1 applic Ondansetron HCl (Zofran Inj) 4 mg IVP Q4 PRN PRN Reason: Nausea/Vomiting Last Admin: 12/29/18 03:38 Dose: 4 mg Pantoprazole Sodium (Protonix Ec Tab) 40 mg PO DAILY [facility] Last Admin: 12/30/18 09:37 Dose: 40 mg Sucralfate (Carafate Oral Susp) 1 gm PO QID [facility] Last Admin: 12/30/18 23:00 Dose: 1 gm - Labs Labs: 12/28/18 21:10 12/28/18 21:10 Assessment and Plan - Assessment and Plan (Free Text) Assessment: ESRD ON HD AND SAT CHF . F OVERLOAD . P EDEMA .. RECIEVED HD YESTERDAY AND TODAY ANEMIA OF CKD .. WAS STARTD ON EPO 10.000 IU S/Q ALSO FERRLICIT 125 MG ON EACH HD ELECTROLYTES ABN : HYPONATREMIA .. HYPERKALEMIA .. HYPO CALCEMIA MMP P : C/O HD ON AND SAT C/O WITH EPO AND FERRLICIT FOR ANEMIA OF CKD C/O CURRENT MEDS DIETARY CONSULT AND COUNCELLING
[2018-12-31] MEDS: DiphenhydrAMINE 50 mg/ml Inj IVP PRN ×4 (03:05→20:28)
[2018-12-31] MEDS: (Novolin R) Insulin Human Regular 100 units/ml vial SC SCH ×4 (08:04→21:42)
[2018-12-31] MEDS: Sucralfate 1 gm/10 ml Oral Susp UD PO SCH ×4 (10:05→21:58)
[2018-12-31] MEDS: Pantoprazole 40 mg EC Tab PO SCH (10:06)
[2018-12-31] MEDS: Nystatin 100,000 Units/gm Topical Pow(15 gm) TOP SCH ×2 (10:07→17:23)
[2018-12-31] MEDS ORDERED: DiphenhydrAMINE 50 mg/ml Inj IVP ONE (12:30)
[2018-12-31 12:58] LABS: CALCIUM 8.3 mg/dl (8.6-10.4)
--- NOTE | 2018-12-31 16:52 | CP.PCM.PN ---
Subjective - Date & Time of Evaluation Date of Evaluation: 12/31/18 - Subjective Subjective: patient examined today no fever no diarrhea no dizziness no nausea no shortness of breath no vomiting Objective - Vital Signs/Intake and Output Vital Signs (last 24 hours): Temp Pulse Resp BP Pulse Ox 98.0 F 90 20 166/91 H 98 12/31/18 16:00 12/31/18 16:00 12/31/18 16:00 12/31/18 16:00 12/31/18 16:00 - Medications Medications: Current Medications Albuterol/Ipratropium (Duoneb 3 Mg/0.5 Mg (3 Ml) Ud) 3 ml IH RQID PRN PRN Reason: Wheezing Last Admin: 12/29/18 19:22 Dose: 3 ml Amlodipine Besylate (Norvasc) 5 mg PO DAILY [facility] Last Admin: 12/31/18 10:05 Dose: 5 mg Aspirin (Ecotrin) 81 mg PO DAILY [facility] Last Admin: 12/31/18 10:06 Dose: 81 mg Calcium Acetate (Phoslo) 667 mg PO TID [facility] Last Admin: 12/31/18 15:53 Dose: Not Given Carvedilol (Coreg) 3.125 mg PO BID [facility] Last Admin: 12/31/18 10:05 Dose: 3.125 mg Clonidine HCl (Catapres) 0.3 mg PO BID [facility] Last Admin: 12/31/18 10:05 Dose: 0.3 mg Diphenhydramine HCl (Benadryl) 25 mg IVP Q4 PRN PRN Reason: Itching / Pruritus Last Admin: 12/31/18 16:23 Dose: 25 mg Docusate Sodium (Colace) 100 mg PO TID [facility] Last Admin: 12/31/18 15:52 Dose: Not Given Epoetin James (Procrit) 10,000 unit SC [facility] Last Admin: 12/30/18 16:02 Dose: 10,000 unit Ergocalciferol (Drisdol 50,000 Intl Units Cap) 1 cap PO QWK [facility] Ferric Sodium Gluconate Complex (Ferrlecit) 125 mg IVPB [facility] Stop: 01/07/19 15:31 Last Admin: 12/30/18 16:03 Dose: 125 mg Gabapentin (Neurontin) 400 mg PO BID [facility] Last Admin: 12/31/18 12:35 Dose: Not Given Heparin Sodium (Porcine) (Heparin) 5,000 units SC BID [facility] Last Admin: 12/31/18 10:07 Dose: Not Given Hydromorphone HCl (Dilaudid) 2 mg IVP Q4H PRN PRN Reason: Pain, severe (8-10) Last Admin: 12/31/18 16:24 Dose: 2 mg Insulin Glargine (Lantus) 25 unit SC HS [facility] Last Admin: 12/30/18 23:01 Dose: 25 unit Insulin Human Regular (Novolin R) 1 unit SC ACHS [facility]; Protocol Last Admin: 12/31/18 15:53 Dose: Not Given Metoclopramide HCl (Reglan) 10 mg PO BID PRN PRN Reason: Nausea/Vomiting Nystatin (Nystop Topical Powder) 1 gm TOP BID [facility] Last Admin: 12/31/18 10:07 Dose: 1 applic Ondansetron HCl (Zofran Inj) 4 mg IVP Q4 PRN PRN Reason: Nausea/Vomiting Last Admin: 12/29/18 03:38 Dose: 4 mg Pantoprazole Sodium (Protonix Ec Tab) 40 mg PO DAILY [facility] Last Admin: 12/31/18 10:06 Dose: 40 mg Sucralfate (Carafate Oral Susp) 1 gm PO QID [facility] Last Admin: 12/31/18 15:52 Dose: Not Given - Labs Labs: 12/28/18 21:10 12/31/18 12:26 - Constitutional Appears: Well - Head Exam Head Exam: ATRAUMATIC, NORMAL INSPECTION, NORMOCEPHALIC - Eye Exam Eye Exam: EOMI, Normal appearance, PERRL Pupil Exam: NORMAL ACCOMODATION, PERRL - ENT Exam ENT Exam: Mucous Membranes Moist, Normal Exam - Neck Exam Neck Exam: Full ROM, Normal Inspection. absent: Lymphadenopathy - Respiratory Exam Respiratory Exam: Decreased Breath Sounds - Cardiovascular Exam Cardiovascular Exam: REGULAR RHYTHM, +S1, +S2 - GI/Abdominal Exam GI & Abdominal Exam: Soft, Diminished Bowel Sounds - Rectal Exam Rectal Exam: Deferred - Neurological Exam Neurological Exam: Oriented x3 Assessment and Plan - Assessment and Plan (Free Text) Plan: plan discussed with patient moderate complexity of care benadryl carafate oral susp catapress colace coreg dilaudid drisdol duoneb ecotrin ferrlecit heparin lantus neurontin norvasc novolin R nystop topical powder phosolo procrit protonix ec tab reglan zofran inj medication reviewed vitals reviewed labs reviewed
[2018-12-31] MEDS: (Lantus) Insulin Glargine, Recombinant SC SCH (21:58)
[2019-01-01] MEDS: DiphenhydrAMINE 50 mg/ml Inj IVP PRN ×5 (00:29→17:21)
[2019-01-01] MEDS: (Novolin R) Insulin Human Regular 100 units/ml vial SC SCH ×3 (08:10→17:30)
[2019-01-01] MEDS: Pantoprazole 40 mg EC Tab PO SCH (09:21)
[2019-01-01] MEDS: Sucralfate 1 gm/10 ml Oral Susp UD PO SCH ×3 (09:21→18:20)
[2019-01-01] MEDS: Nystatin 100,000 Units/gm Topical Pow(15 gm) TOP SCH ×2 (09:22→18:24)
[2019-01-01] MEDS ORDERED: DiphenhydrAMINE 50 mg/ml Inj IVP ONE (14:00)
[2019-01-01] MEDS ORDERED: DiphenhydrAMINE 50 mg/ml Inj IM ONE (14:00)
[2019-01-01] MEDS: Ferric Sodium Gluconat Complex 62.5 mg/5 ml Vial IVPB SCH (15:55)
[2019-01-01] MEDS: Epoetin Alfa 10,000 unit/ml Dialysis SC SCH (16:00)
[2019-01-01 16:20] VITALS: BP 161/95; PULSE 80; RESP 16; TEMP 97.6; O2SAT 98
--- NOTE | 2019-01-01 19:56 | CP.PCM.DIS ---
Provider - Provider Date of Admission: 12/28/18 22:28 Attending physician: Florence Sexton MD Consults: 12/28/18 22:29 Nephrology Consult Routine Comment: Consulting Provider: Jesus Phillips Consulting Physician: Jesus Phillips Reason for Consult: ESRD on HD, dyspnea Hospital Course - Lab Results Lab Results: Most Recent Lab Values WBC 8.2 K/uL (4.8-10.8) 12/28/18 21:10 RBC 2.61 Mil/uL (3.80-5.20) L 12/28/18 21:10 Hgb 8.0 g/dL (11.0-16.0) L 12/28/18 21:10 Hct 25.1 % (34.0-47.0) L 12/28/18 21:10 MCV 96.2 fL (81.0-99.0) D 12/28/18 21:10 MCH 30.6 pg (27.0-31.0) 12/28/18 21:10 MCHC 31.8 g/dL (33.0-37.0) L 12/28/18 21:10 RDW 18.9 % (11.5-14.5) H 12/28/18 21:10 Plt Count 402 K/uL (130-400) H D 12/28/18 21:10 MPV 7.6 fL (7.2-11.7) 12/28/18 21:10 Neut % (Auto) 63.9 % (50.0-75.0) 12/28/18 21:10 Lymph % (Auto) 17.9 % (20.0-40.0) L 12/28/18 21:10 Parke % (Auto) 4.8 % (0.0-10.0) 12/28/18 21:10 Eos % (Auto) 12.1 % (0.0-4.0) H 12/28/18 21:10 Baso % (Auto) 1.3 % (0.0-2.0) 12/28/18 21:10 Neut # (Auto) 5.3 K/uL (1.8-7.0) 12/28/18 21:10 Lymph # (Auto) 1.5 K/uL (1.0-4.3) 12/28/18 21:10 Parke # (Auto) 0.4 K/uL (0.0-0.8) 12/28/18 21:10 Eos # (Auto) 1.0 K/uL (0.0-0.7) H 12/28/18 21:10 Baso # (Auto) 0.1 K/uL (0.0-0.2) 12/28/18 21:10 Sodium 135 mmol/L (132-148) 12/31/18 12:26 Potassium 4.6 mmol/L (3.6-5.2) 12/31/18 12:26 Chloride 92 mmol/L (98-107) L 12/31/18 12:26 Carbon Dioxide 27 mmol/L (22-30) 12/31/18 12:26 Anion Gap 20 (10-20) 12/31/18 12:26 BUN 38 mg/dL (7-17) H 12/31/18 12:26 Creatinine 6.1 mg/dL (0.7-1.2) H 12/31/18 12:26 Est GFR ( Amer) 10 12/31/18 12:26 Est GFR (Non-Af Amer) 8 12/31/18 12:26 POC Glucose (mg/dL) 158 mg/dL (65-110) H 01/01/19 17:01 Random Glucose 175 mg/dL (65-105) H D 12/31/18 12:26 Calcium 8.3 mg/dl (8.6-10.4) L 12/31/18 12:26 Magnesium 2.1 mg/dL (1.6-2.3) 12/28/18 21:10 Total Bilirubin 0.4 mg/dL (0.2-1.3) 12/28/18 21:10 AST 24 U/L (14-36) 12/28/18 21:10 ALT 25 U/L (9-52) 12/28/18 21:10 Alkaline Phosphatase 168 U/L (38-126) H 12/28/18 21:10 Troponin I < 0.0120 ng/mL (0.00-0.120) 12/28/18 21:10 Total Protein 7.5 g/dL (6.3-8.3) 12/28/18 21:10 Albumin 4.0 g/dL (3.5-5.0) 12/28/18 21:10 Globulin 3.5 gm/dL (2.2-3.9) 12/28/18 21:10 Albumin/Globulin Ratio 1.1 (1.0-2.1) 12/28/18 21:10 Discharge Exam - Head Exam Head Exam: ATRAUMATIC, NORMAL INSPECTION, NORMOCEPHALIC - Eye Exam Eye Exam: EOMI, Normal appearance, PERRL Pupil Exam: NORMAL ACCOMODATION, PERRL - ENT Exam ENT Exam: Normal Exam - Neck Exam Neck exam: Full Rom - Respiratory Exam Respiratory Exam: Decreased Breath Sounds, Rales - Cardiovascular Exam Cardiovascular Exam: REGULAR RHYTHM, +S1, +S2 - GI/Abdominal Exam GI & Abdominal Exam: Diminished Bowel Sounds, Distended, Soft - Neurological Exam Neurological exam: Oriented x3 Discharge Plan - Follow Up Plan Condition: STABLE Disposition: HOME/ ROUTINE Instructions: Heart Failure, Adult (DC), Hyperglycemia, Adult (DC), End Stage Kidney Disease (DC), Diabetes and Diet, Dialysis and Diet Additional Instructions: Please follow up with Dr. López office in 3-5 days please continue HD as scheduled MWF Please continue home medications Referrals: Kim Sexton MD [Staff Provider] -
--- NOTE | 2019-01-02 00:07 | CARD ---
APPROVED REPORT Date of service: 12/28/2018 EKG Measurement Heart [id number] <Conclusion> Normal sinus rhythm Prolonged QT Abnormal ECG
[2019-01-05] MEDS ORDERED: Ergocalciferol 50,000 Intl Units Cap PO SCH (10:00)
== END 2019-01-01 18:42 | disposition home or self-care (01) | DRG 127 ==
LOC: C.ER 20:04 → C.9E 22:28 → C.6T 22:48
PROVIDERS: ADMIT Internal Medicine Nephrology; ATTEND Internal Medicine Nephrology
PROC: 5A1D70Z Performance of Urinary Filtration, Intermittent, Less than 6 Hours Per Day (ICD-10-PCS; principal; 2018-12-30)
DX: I13.2 Hypertensive heart and chronic kidney disease with heart failure and with stage 5 chronic kidney disease, or end stage renal disease (principal); I50.9 Heart failure, unspecified; N18.6 End stage renal disease; E87.5 Hyperkalemia; E87.1 Hypo-osmolality and hyponatremia; E11.65 Type 2 diabetes mellitus with hyperglycemia; E11.43 Type 2 diabetes mellitus with diabetic autonomic (poly)neuropathy; E11.22 Type 2 diabetes mellitus with diabetic chronic kidney disease; E83.51 Hypocalcemia; E78.00 Pure hypercholesterolemia, unspecified; G47.30 Sleep apnea, unspecified; J45.909 Unspecified asthma, uncomplicated; K31.84 Gastroparesis; D63.1 Anemia in chronic kidney disease; Z95.5 Presence of coronary angioplasty implant and graft; E03.9 Hypothyroidism, unspecified; F41.9 Anxiety disorder, unspecified; Z99.2 Dependence on renal dialysis

== ENCOUNTER 2019-01-08 20:29 | Inpatient (IN) | payer MEDICAID ==
[2019-01-08 20:30] VITALS: BMI 30.2
[2019-01-08] MEDS ORDERED: Sodium Chloride 0.9% 500 ML IV ONE ×2 (21:12→21:31)
[2019-01-08] MEDS ORDERED: (Novolin R) Insulin Human Regular 100 units/ml vial IVP STA (21:13)
--- NOTE | 2019-01-08 21:21 | C.PDOC ---
History Of Present Illness Patient is a 33 year old female well known to the ER, with a Hx of ESRD on dialysis, who presents for evaluation of hyperglycemia over 500 and a painful abscess in her left groin. Patient states that over the last week the abscess cotton s been developing, but over the last day it began to decrease and felt better. Patient is still experiencing pain in the area and out of control blood sugar, prompting visit to ED. Patient states that her blood sugar has been uncontrolled for the past several weeks. Time Seen by Provider: 01/08/19 21:08 Chief Complaint (Nursing): Abnormal Skin Integrity History Per: Patient History/Exam Limitations: no limitations Onset/Duration Of Symptoms: Days Current Symptoms Are (Timing): Still Present Quality Of Symptoms: Painful Recent travel outside of the [place]: No Additional History Per: Patient Past Medical History Reviewed: Historical Data, Nursing Documentation, Vital Signs Vital Signs: Last Vital Signs Temp 98.8 F 01/08/19 20:45 Pulse 101 H 01/08/19 20:45 Resp 20 01/08/19 20:45 BP 171/97 H 01/08/19 20:45 Pulse Ox 92 L 01/08/19 20:45 Primary Care Provider: Kim Sexton - Medical History PMH: Anemia, Anxiety, Asthma, Bronchitis, CHF, Diabetes, Fractures (LEFT FOOT), Gastritis, Gastrointestinal Ulcer (gastroparesis), Gall Bladder Disease, Hepatitis, HTN, Hypercholesterolemia, Hyperthyroidism, Hypothyroidism, Kidney Stones, Pancreatitis, Peripheral Edema, Pneumonia, End Stage Renal Disease, Chronic Kidney Disease, Seizures, Sleep Apnea, Chronic Pain Surgical History: Cholecystectomy, Coronary Stent (x1) - [facility] Procedures (12/28/18) ASSISTANCE WITH RESPIRATORY VENTILATION, 24-96 HRS, CPAP (11/27/16) CAUTERY TO STOP EPISTAX (03/22/14) CENTRAL VENOUS CATHETER PLACEMENT WITH GUIDANCE (11/06/14) DIALYSIS ARTERIOVENOSTOM (01/10/14) DILATION OF L INNOM VEIN WITH INTRALUM DEV, PERC APPROACH (09/24/18) DILATION OF LEFT SUBCLAVIAN VEIN, PERCUTANEOUS APPROACH (09/03/17) DRAINAGE OF RIGHT FOOT SKIN, EXTERNAL APPROACH (07/17/16) DRAINAGE OF RIGHT LOWER ARM SKIN, EXTERNAL APPROACH (05/25/16) ESOPHAGOGASTRODUODENOSCOPY [EGD] W/CLOSED BIOPSY (03/03/14) EXCISION OF LEFT TOE PHALANX, OPEN APPROACH (07/12/17) EXCISION OF STOMACH, ENDO, DIAGN (05/09/16) EXTIRPATE MATTER FROM R LOW ARM SUBCU/FASCIA, PERC (05/25/16) EXTRACTION OF RIGHT FOOT SKIN, EXTERNAL APPROACH (05/25/16) EXTRACTION OF TOE NAIL, EXTERNAL APPROACH (07/12/17) FLEXIBLE SIGMOIDOSCOPY (10/26/14) FLUOROSCOPY OF DIALYSIS SHUNT/FISTULA USING L OSM CONTRAST (09/24/18) FLUOROSCOPY OF LEFT SUBCLAVIAN VEIN USING OTHER CONTRAST (09/03/17) FLUOROSCOPY OF R JUGULAR VEIN USING L OSM CONTRAST, GUIDANCE (12/13/15) FLUOROSCOPY OF RIGHT SUBCLAVIAN VEIN, GUIDANCE (08/07/16) HEMODIALYSIS (04/05/15) INDIVIDUAL PSYCHOTHERAPY, SUPPORTIVE (10/12/18) INJECT INSULIN (12/23/12) INJECT/INFUSE ELECTROLYT (12/23/12) INJECT/INFUSE NEC (01/17/15) INSERT INFUSION DEV IN R INT JUGULAR VEIN, PERC (02/23/16) INSERT VAD RESERVOIR IN CHEST SUBCU/FASCIA, OPEN (08/19/17) INSERTION OF INFUSION DEV INTO R BASILIC VEIN, PERC APPROACH (04/18/16) INSERTION OF INFUSION DEV INTO R BRACH VEIN, PERC APPROACH (02/19/17) INSERTION OF INFUSION DEV INTO R SUBCLAV VEIN, PERC APPROACH (08/29/16) INSERTION OF INFUSION DEV INTO SUP VENA CAVA, PERC APPROACH (08/19/17) INSERTION OF INFUSION DEVICE INTO R ATRIUM, PERC APPROACH (12/13/15) INSERTION OF VAD INTO CHEST SUBCU/FASCIA, OPEN APPROACH (12/13/15) MEASURE OF CARDIAC SAMPL & PRESSURE, L HEART, PERC APPROACH (10/09/16) OTHER ENDOSCOPY OF SM INTEST (08/25/14) PACKED CELL TRANSFUSION (10/26/14) PERFORMANCE OF URINARY FILTRATION, MULTIPLE (03/19/17) PERFORMANCE OF URINARY FILTRATION, SINGLE (11/27/16) PLAIN RADIOGRAPHY OF LEFT HEART USING OTHER CONTRAST (10/09/16) PLAIN RADIOGRAPHY OF MULT COR ART USING OTH CONTRAST (10/09/16) PLICATION OF VENA CAVA (03/22/14) POST NASAL PAC FOR EPIST (03/22/14) REMOVAL OF VAD FROM TRUNK SUBCU/FASCIA, OPEN APPROACH (02/23/16) RESECTION OF TOE NAIL, EXTERNAL APPROACH (08/19/17) MELVIN KENNY DIALYSIS SHUNT (03/03/14) THERAPEUTIC ERYTHROCYTAPHERESIS (10/26/14) TRANSFUSE NONAUT RED BLOOD CELLS IN PERIPH VEIN, PERC (02/19/17) ULTRASONOGRAPHY OF RIGHT AND LEFT HEART, TRANSESOPHAGEAL (02/19/17) ULTRASONOGRAPHY OF RIGHT SUBCLAVIAN VEIN, GUIDANCE (08/29/16) ULTRASONOGRAPHY OF RIGHT UPPER EXTREMITY VEINS, GUIDANCE (02/19/17) VACCINATION NEC (10/26/14) VENOUS CATHETERIZATION FOR RENAL DIALYSIS (03/03/14) Family History: States: No Known Family Hx - Social History Hx Tobacco Use: No Hx Alcohol Use: No Hx Substance Use: No - Immunization History Hx Tetanus Toxoid Vaccination: No Hx Influenza Vaccination: Yes Hx Pneumococcal Vaccination: Yes Review Of Systems Constitutional: Negative for: Fever, Chills Cardiovascular: Negative for: Chest Pain Respiratory: Negative for: Shortness of Breath Genitourinary: Positive for: Other (abscess in left groin ) Physical Exam - Physical Exam Appears: Non-toxic, No Acute Distress Skin: Other (small 2cm induration with central open wound draining scant amount of pus in left inner groin. no surrounding cellulitis ) Head: Atraumatic, Normacephalic Eye(s): bilateral: Normal Inspection Oral Mucosa: Moist Neck: Normal ROM, Supple Lymphatic: No Adenopathy Chest: Symmetrical, No Deformity Cardiovascular: Rhythm Regular, No Murmur Respiratory: Normal Breath Sounds, No Rales, No Rhonchi, No Wheezing Gastrointestinal/Abdominal: Soft, No Tenderness Neurological/Psych: Oriented x3 ED Course And Treatment - Laboratory Results Result Diagrams: 01/08/19 21:32 01/08/19 21:32 Lab Interpretation: Abnormal (Glucose 690 decreased to 475 after IVF and Insulin 10u IVP., BUN 37, Cr 5.0) O2 Sat by Pulse Oximetry: 92 (on RA ) Pulse Ox Interpretation: Normal - Physician Consult Information Time Consulting Physician Contacted: 22:53 Physician Contacted: Kim Sexton Outcome Of Conversation: Patient to be admitted for uncontrolled diabetes and groin abscess. Medical Decision Making Medical Decision Making: Plan: Labs Insulin 10unit IVP IV Fluids Disposition - Disposition Disposition: HOSPITALIZED Disposition Time: 23:07 Condition: FAIR - POA Present On Arrival: Poor Glycemic Control - Clinical Impression Clinical Impression: ESRD (end stage renal disease) on dialysis, Uncontrolled diabetes mellitus, Abscess - Scribe Statement The provider has reviewed the documentation as recorded by the Arun Mosher All medical record entries made by the Kwadwoibe were at my direction and personally dictated by me. I have reviewed the chart and agree that the record accurately reflects my personal performance of the history, physical exam, medical decision making, and the department course for this patient. I have also personally directed, reviewed, and agree with the discharge instructions and disposition.
[2019-01-08] MEDS ORDERED: (Novolin R) Insulin Human Regular 100 units/ml vial ONE (21:31)
[2019-01-08 21:39] LABS: BASO # 0.1 K/uL (0.0-0.2); BASO % 1.3 % (0.0-2.0); EOS # 0.7 K/uL (0.0-0.7); EOS % 12.2 % (0.0-4.0); HEMOGLOBIN 9.1 g/dL (11.0-16.0); LYMPH # 0.7 K/uL (1.0-4.3); LYMPH % 12.4 % (20.0-40.0); MEAN CELL VOLUME 97.8 fL (81.0-99.0); MEAN CORPUSCULAR HEMOGLOBIN 31.3 pg (27.0-31.0); MEAN PLATELET VOLUME 8.1 fL (7.2-11.7); MONO # 0.5 K/uL (0.0-0.8); MONO % 8.5 % (0.0-10.0); NEUT # 3.7 K/uL (1.8-7.0); NEUT % 65.6 % (50.0-75.0); RBC 2.9 Mil/uL (3.80-5.20); RED CELL DISTRIBUTION WIDTH 20.7 % (11.5-14.5); WHITE BLOOD COUNT 5.7 K/uL (4.8-10.8)
[2019-01-08 21:58] LABS: ALB/GLOB RATIO 1.4 (1.0-2.1); CALCIUM 7.6 mg/dl (8.6-10.4)
[2019-01-08] MEDS ORDERED: DiphenhydrAMINE 50 mg/ml Inj IVP STA (22:02)
[2019-01-08] MEDS ORDERED: DiphenhydrAMINE 50 mg/ml Inj ONE (22:08)
[2019-01-08] MEDS ORDERED: Albuterol-Ipratrop 3 mg / 0.5 (3 ml) UD IH PRN (23:16)
[2019-01-08] MEDS ORDERED: Glucagon Recombinant 1 mg Inj IM PRN (23:18)
[2019-01-08] MEDS ORDERED: Dextrose 50% SYRINGE Inj (50 ml) IV PRN (23:18)
[2019-01-08] MEDS ORDERED: (Novolog) Insulin Aspart, Recombinant 100 u/ml 10 ml vial SC STA (23:45)
[2019-01-08] MEDS ORDERED: (Novolog) Insulin Aspart, Recombinant 100 u/ml 10 ml vial ONE (23:52)
[2019-01-09] MEDS: DiphenhydrAMINE 50 mg/ml Inj IVP PRN ×6 (01:23→21:18)
[2019-01-09] MEDS: HYDROmorphone 1 mg/ml ISec IVP PRN ×6 (01:24→21:18)
[2019-01-09] MEDS: (Novolog) Insulin Aspart, Recombinant 100 u/ml 10 ml vial SC SCH ×4 (07:30→21:43)
[2019-01-09] MEDS: Pantoprazole 40 mg EC Tab PO SCH (09:14)
[2019-01-09] MEDS ORDERED: Home Med 1 UNIT (Cholecalciferol [Vitamin D 1000 Iu] 1,000 UNIT) PO SCH (10:00)
[2019-01-09] MEDS ORDERED: Sucralfate 1 gm/10 ml Oral Susp UD PO SCH (10:00)
[2019-01-09] MEDS ORDERED: Albuterol-Ipratrop 3 mg / 0.5 (3 ml) UD IH PRN (10:15)
[2019-01-09] MEDS: Sucralfate 1 gm/10 ml Oral Susp UD PO SCH ×3 (10:48→21:34)
[2019-01-09] MEDS ORDERED: DiphenhydrAMINE 50 mg/ml Inj IVP ONE ×2 (11:45→19:45)
--- NOTE | 2019-01-09 14:28 | CP.PCM.HP ---
Past Patient History - Infectious Disease Hx of Infectious Diseases: None - Tetanus Immunizations Tetanus Immunization: Unknown - Past Medical History & Family History Past Medical History?: Yes - Past Social History Smoking Status: Never Smoked - CARDIAC Hx Congestive Heart Failure: Yes Hx Hypercholesterolemia: Yes Hx Hypertension: Yes Hx Peripheral Edema: Yes - PULMONARY Hx Asthma: Yes Hx Bronchitis: Yes Hx Pneumonia: Yes Hx Sleep Apnea: Yes - NEUROLOGICAL Hx Seizures: Yes - HEENT Hx HEENT Problems: Yes Hx Cataracts: Yes (BOTH EYES) Hx Glaucoma: Yes (BOTH EYES) - RENAL Hx Chronic Kidney Disease: Yes Hx Kidney Stones: Yes - ENDOCRINE/METABOLIC Hx Hyperthyroidism: No Hx Hypothyroidism: No - HEMATOLOGICAL/ONCOLOGICAL Hx Anemia: Yes - INTEGUMENTARY Hx Dermatological Problems: Yes Other/Comment: DRY ITCHY SKIN ;multiple/generalized dark spots on skin. left toe blister - MUSCULOSKELETAL/RHEUMATOLOGICAL Hx Fractures: Yes (LEFT FOOT) - GASTROINTESTINAL Hx Gall Bladder Disease: Yes Hx Gastritis: Yes Hx Pancreatitis: Yes - PSYCHIATRIC Hx Anxiety: Yes Hx Substance Use: No - SURGICAL HISTORY Hx Cholecystectomy: Yes Hx Coronary Stent: Yes (x1) - ANESTHESIA Hx Anesthesia: Yes Hx Anesthesia Reactions: No Hx Malignant Hyperthermia: No Meds Allergies/Adverse Reactions: Allergies Allergy/AdvReac Type Severity Reaction Status Date / Time ketorolac tromethamine Allergy RASH Verified 12/28/18 20:14 [From Toradol] latex Allergy RASH Verified 12/28/18 20:14 morphine Allergy RASH Verified 12/28/18 20:14 tramadol Allergy RASH Verified 12/28/18 20:14 Physical Exam - Constitutional Appears: Well - Head Exam Head Exam: ATRAUMATIC, NORMAL INSPECTION, NORMOCEPHALIC - Eye Exam Eye Exam: EOMI, Normal appearance, PERRL Pupil Exam: NORMAL ACCOMODATION, PERRL - ENT Exam ENT Exam: Mucous Membranes Moist, Normal Exam - Neck Exam Neck exam: Positive for: Normal Inspection - Respiratory Exam Respiratory Exam: Decreased Breath Sounds - Cardiovascular Exam Cardiovascular Exam: REGULAR RHYTHM, +S1, +S2 - GI/Abdominal Exam GI & Abdominal Exam: Diminished Bowel Sounds, Soft - Rectal Exam Rectal Exam: Deferred - Neurological Exam Neurological exam: Oriented x3 Results - Vital Signs Recent Vital Signs: Last Vital Signs Temp 98.3 F 01/09/19 07:00 Pulse 93 H 01/09/19 09:14 Resp 18 01/09/19 09:14 BP 165/94 H 01/09/19 09:14 Pulse Ox 100 01/09/19 09:14 - Labs Result Diagrams: 01/08/19 21:32 01/08/19 21:32 Labs: Laboratory Results - last 24 hr 01/08/19 01/08/19 01/08/19 21:06 21:08 21:32 WBC 5.7 RBC 2.90 L Hgb 9.1 L Hct 28.3 L MCV 97.8 MCH 31.3 H MCHC 32.0 L RDW 20.7 H Plt Count 295 D MPV 8.1 Neut % (Auto) 65.6 Lymph % (Auto) 12.4 L Starke % (Auto) 8.5 Eos % (Auto) 12.2 H Baso % (Auto) 1.3 Neut # (Auto) 3.7 Lymph # (Auto) 0.7 L Starke # (Auto) 0.5 Eos # (Auto) 0.7 Baso # (Auto) 0.1 Sodium Potassium Chloride Carbon Dioxide Anion Gap BUN Creatinine Est GFR ( Amer) Est GFR (Non-Af Amer) POC Glucose (mg/dL) > 500 H* > 500 H* Random Glucose Calcium Total Bilirubin AST ALT Alkaline Phosphatase Total Protein Albumin Globulin Albumin/Globulin Ratio 01/08/19 01/08/19 01/08/19 21:32 22:01 22:50 WBC RBC Hgb Hct MCV MCH MCHC RDW Plt Count MPV Neut % (Auto) Lymph % (Auto) Starke % (Auto) Eos % (Auto) Baso % (Auto) Neut # (Auto) Lymph # (Auto) Starke # (Auto) Eos # (Auto) Baso # (Auto) Sodium 136 Potassium 4.6 Chloride 93 L Carbon Dioxide 28 Anion Gap 19 BUN 37 H Creatinine 5.0 H Est GFR ( Amer) 12 Est GFR (Non-Af Amer) 10 POC Glucose (mg/dL) > 500 H* 475 H* Random Glucose 691 H* D Calcium 7.6 L Total Bilirubin 0.4 AST 30 ALT 36 Alkaline Phosphatase 168 H Total Protein 6.8 Albumin 4.0 Globulin 2.8 Albumin/Globulin Ratio 1.4 01/09/19 01/09/19 01/09/19 02:58 03:22 06:58 WBC RBC Hgb Hct MCV MCH MCHC RDW Plt Count MPV Neut % (Auto) Lymph % (Auto) Starke % (Auto) Eos % (Auto) Baso % (Auto) Neut # (Auto) Lymph # (Auto) Starke # (Auto) Eos # (Auto) Baso # (Auto) Sodium Potassium Chloride Carbon Dioxide Anion Gap BUN Creatinine Est GFR ( Amer) Est GFR (Non-Af Amer) POC Glucose (mg/dL) 36 L* 86 84 Random Glucose Calcium Total Bilirubin AST ALT Alkaline Phosphatase Total Protein Albumin Globulin Albumin/Globulin Ratio 01/09/19 11:04 WBC RBC Hgb Hct MCV MCH MCHC RDW Plt Count MPV Neut % (Auto) Lymph % (Auto) Starke % (Auto) Eos % (Auto) Baso % (Auto) Neut # (Auto) Lymph # (Auto) Starke # (Auto) Eos # (Auto) Baso # (Auto) Sodium Potassium Chloride Carbon Dioxide Anion Gap BUN Creatinine Est GFR ( Amer) Est GFR (Non-Af Amer) POC Glucose (mg/dL) 248 H Random Glucose Calcium Total Bilirubin AST ALT Alkaline Phosphatase Total Protein Albumin Globulin Albumin/Globulin Ratio
[2019-01-09] MEDS: (Lantus) Insulin Glargine, Recombinant SC SCH (21:34)
[2019-01-10] MEDS: DiphenhydrAMINE 50 mg/ml Inj IVP PRN ×6 (01:21→22:00)
[2019-01-10] MEDS: HYDROmorphone 1 mg/ml ISec IVP PRN ×4 (01:21→14:18)
[2019-01-10] MEDS: (Novolog) Insulin Aspart, Recombinant 100 u/ml 10 ml vial SC SCH ×4 (08:36→21:57)
[2019-01-10] MEDS: Sucralfate 1 gm/10 ml Oral Susp UD PO SCH ×4 (08:36→21:58)
[2019-01-10] MEDS ORDERED: Ferric Sodium Gluconat Complex 62.5 mg/5 ml Vial IVPB SCH (09:00)
[2019-01-10] MEDS ORDERED: Epoetin Alfa 10,000 unit/ml Dialysis IV SCH (09:00)
[2019-01-10] MEDS: Pantoprazole 40 mg EC Tab PO SCH (09:19)
[2019-01-10] MEDS ORDERED: DiphenhydrAMINE 50 mg/ml Inj IVP ONE (10:00)
[2019-01-10] MEDS: Ergocalciferol 50,000 Intl Units Cap PO SCH ×2 (11:29→14:46)
--- NOTE | 2019-01-10 14:41 | CP.PCM.CON ---
History of Present Illness - History of Present Illness History of Present Illness: REASONS FOR CONSULT : ESRD ON HD M W F AND SAT ANEMIA OF CKD FLIUD OVERLOAD .. NEEDS STAT HD PT WAS SEEN AND EXAMINED .. JRECIEVED HD TODAY AND YESTERDAY .. AND ALSO TOMORROW SAT Patient is a 33 year old female well known to the ER, with a Hx of ESRD on dialysis, who presents for evaluation of hyperglycemia over 500 and a painful abscess in her left groin. Patient states that over the last week the abscess has been developing, but over the last day it began to decrease and felt better. Patient is still experiencing pain in the area and out of control blood sugar, prompting visit to ED. Patient states that her blood sugar has been uncontrolled for the past several weeks. Time Seen by Provider: 01/08/19 21:08 Chief Complaint (Nursing): Abnormal Skin Integrity History Per: Patient History/Exam Limitations: no limitations Onset/Duration Of Symptoms: Days Current Symptoms Are (Timing): Still Present Quality Of Symptoms: Painful Recent travel outside of the [place]: No Additional History Per: Patient Past Medical History Reviewed: Historical Data, Nursing Documentation, Vital Signs Vital Signs: Last Vital Signs Temp 98.8 F 01/08/19 20:45 Pulse 101 H 01/08/19 20:45 Resp 20 01/08/19 20:45 BP 171/97 H 01/08/19 20:45 Pulse Ox 92 L 01/08/19 20:45 Primary Care Provider: Kim Sexton - Medical History PMH: Anemia, Anxiety, Asthma, Bronchitis, CHF, Diabetes, Fractures (LEFT FOOT), Gastritis, Gastrointestinal Ulcer (gastroparesis), Gall Bladder Disease, Hepatitis, HTN, Hypercholesterolemia, Hyperthyroidism, Hypothyroidism, Kidney Stones, Pancreatitis, Peripheral Edema, Pneumonia, End Stage Renal Disease, Chronic Kidney Disease, Seizures, Sleep Apnea, Chronic Pain Surgical History: Cholecystectomy, Coronary Stent (x1) Past Patient History - Infectious Disease Hx of Infectious Diseases: None - Tetanus Immunizations Tetanus Immunization: Unknown - Past Medical History & Family History Past Medical History?: Yes - Past Social History Smoking Status: Never Smoked - CARDIAC Hx Congestive Heart Failure: Yes Hx Hypercholesterolemia: Yes Hx Hypertension: Yes Hx Peripheral Edema: Yes - PULMONARY Hx Asthma: Yes Hx Bronchitis: Yes Hx Pneumonia: Yes Hx Sleep Apnea: Yes - NEUROLOGICAL Hx Seizures: Yes - HEENT Hx HEENT Problems: Yes Hx Cataracts: Yes (BOTH EYES) Hx Glaucoma: Yes (BOTH EYES) - RENAL Hx Chronic Kidney Disease: Yes Hx Kidney Stones: Yes - ENDOCRINE/METABOLIC Hx Hyperthyroidism: No Hx Hypothyroidism: No - HEMATOLOGICAL/ONCOLOGICAL Hx Anemia: Yes - INTEGUMENTARY Hx Dermatological Problems: Yes Other/Comment: DRY ITCHY SKIN ;multiple/generalized dark spots on skin. left toe blister - MUSCULOSKELETAL/RHEUMATOLOGICAL Hx Fractures: Yes (LEFT FOOT) - GASTROINTESTINAL Hx Gall Bladder Disease: Yes Hx Gastritis: Yes Hx Pancreatitis: Yes - PSYCHIATRIC Hx Anxiety: Yes Hx Substance Use: No - SURGICAL HISTORY Hx Cholecystectomy: Yes Hx Coronary Stent: Yes (x1) - ANESTHESIA Hx Anesthesia: Yes Hx Anesthesia Reactions: No Hx Malignant Hyperthermia: No Meds Home Medications: Home Medication List Medication Instructions Recorded Confirmed Type Vancomycin/0.9 % Sod Chloride 500 mg IV MWF 7 Days froz.[id number] 01/10/19 Rx [Vanco 500 mg/100 ml-0.9% NaCl] Allergies/Adverse Reactions: Allergies Allergy/AdvReac Type Severity Reaction Status Date / Time ketorolac tromethamine Allergy RASH Verified 12/28/18 20:14 [From Toradol] latex Allergy RASH Verified 12/28/18 20:14 morphine Allergy RASH Verified 12/28/18 20:14 tramadol Allergy RASH Verified 12/28/18 20:14 - Medications Medications: Current Medications Albuterol/Ipratropium (Duoneb 3 Mg/0.5 Mg (3 Ml) Ud) 3 ml IH RQID PRN PRN Reason: Wheezing Amlodipine Besylate (Norvasc) 5 mg PO DAILY [facility] Last Admin: 01/10/19 09:13 Dose: Not Given Aspirin (Ecotrin) 81 mg PO DAILY [facility] Last Admin: 01/10/19 11:30 Dose: Not Given Calcium Acetate (Phoslo) 667 mg PO TIDCC [facility] Last Admin: 01/10/19 14:19 Dose: 667 mg Carvedilol (Coreg) 3.125 mg PO BID [facility] Last Admin: 01/10/19 09:12 Dose: Not Given Clonidine HCl (Catapres) 0.3 mg PO BID [facility] Last Admin: 01/10/19 09:12 Dose: Not Given Dextrose (Dextrose 50% Inj) 0 ml IV STAT PRN; Protocol PRN Reason: Hypoglycemia Protocol Dextrose (Glutose 15) 0 gm PO ONCE PRN; Protocol PRN Reason: Hypoglycemia Protocol Diphenhydramine HCl (Benadryl) 25 mg IVP Q4 PRN PRN Reason: Allergy symptoms Last Admin: 01/10/19 14:18 Dose: 25 mg Diphenhydramine HCl (Benadryl) 50 mg IVP [facility] PRN PRN Reason: Itchiness Docusate Sodium (Colace) 100 mg PO TID [facility] Last Admin: 01/10/19 14:19 Dose: 100 mg Epoetin James (Procrit) 10,000 unit IV [facility] Last Admin: 01/10/19 10:14 Dose: 10,000 unit Ergocalciferol (Drisdol 50,000 Intl Units Cap) 1 cap PO QWK [facility] Last Admin: 01/10/19 11:29 Dose: Not Given Ferric Sodium Gluconate Complex (Ferrlecit) 125 mg IVPB [facility] Stop: 01/15/19 09:01 Last Admin: 01/10/19 10:13 Dose: 125 mg Gabapentin (Neurontin) 400 mg PO BID [facility] Last Admin: 01/10/19 09:19 Dose: 400 mg Glucagon (Glucagen Diagnostic Kit) 0 mg IM STAT PRN; Protocol PRN Reason: Hypoglycemia Protocol Hydromorphone HCl (Dilaudid) 1 mg IVP Q4H PRN PRN Reason: Pain, severe (8-10) Last Admin: 01/10/19 14:18 Dose: 1 mg Dextrose (Dextrose 5% In Water 1000 Ml) 1,000 mls @ 0 mls/hr IV .Q0M PRN; Protocol PRN Reason: Hypoglycemia Protocol Piperacillin Sod/Tazobactam (Sod 2.25 gm/ Sodium Chloride) 100 mls @ 200 mls/hr IVPB Q8H [facility]; Protocol Last Admin: 01/10/19 14:19 Dose: 200 mls/hr Insulin Aspart (Novolog) 0 unit SC [facility]; Protocol Last Admin: 01/10/19 11:30 Dose: Not Given Insulin Glargine (Lantus) 25 unit SC [facility] Last Admin: 01/09/19 21:34 Dose: 25 unit Metoclopramide HCl (Reglan) 10 mg PO BID PRN PRN Reason: Nausea/Vomiting Ondansetron HCl (Zofran Tab) 4 mg PO Q8H PRN PRN Reason: Nausea/Vomiting Last Admin: 01/10/19 01:21 Dose: 4 mg Pantoprazole Sodium (Protonix Ec Tab) 40 mg PO DAILY [facility] Last Admin: 01/10/19 09:19 Dose: 40 mg Sucralfate (Carafate Oral Susp) 1 gm PO ACHS [facility] Last Admin: 01/10/19 11:29 Dose: Not Given Results - Vital Signs Recent Vital Signs: Last Vital Signs Temp 98 F 01/10/19 12:50 Pulse 87 01/10/19 12:50 Resp 20 01/10/19 12:50 BP 157/91 H 01/10/19 12:50 Pulse Ox 97 01/10/19 12:50 - Labs Result Diagrams: 01/08/19 21:32 01/08/19 21:32 Labs: Laboratory Results - last 24 hr 01/09/19 01/09/19 01/10/19 15:51 21:23 02:53 POC Glucose (mg/dL) 281 H 350 H 153 H 01/10/19 01/10/19 06:20 11:22 POC Glucose (mg/dL) 151 H 131 H Assessment & Plan - Assessment and Plan (Free Text) Assessment: ESRD .. RECIEVED HER HD YESTERDAY AND TODAY .. ALSO SHE IS SCHEDULED FOR HD TOMORROW SAT ANEMIA OF CKD .. START EPO AND IRON MMP P : ON IVAB FOR L GROIN ABCSESS C/O CURRENT CARE C/O PRESENT MANAGEMENT - Date & Time Date: 01/10/19 Time: 14:39
[2019-01-10] MEDS ORDERED: HYDROmorphone 1 mg/ml ISec IVP PRN (14:43)
[2019-01-10] MEDS ORDERED: DiphenhydrAMINE 50 mg/ml Inj IVP PRN (15:46)
--- NOTE | 2019-01-10 19:38 | CP.PCM.PN ---
Subjective - Date & Time of Evaluation Date of Evaluation: 01/10/19 Objective - Vital Signs/Intake and Output Vital Signs (last 24 hours): Temp Pulse Resp BP Pulse Ox 98.7 F 89 18 183/105 H 100 01/10/19 15:00 01/10/19 15:00 01/10/19 15:00 01/10/19 15:00 01/10/19 15:00 - Medications Medications: Current Medications Albuterol/Ipratropium (Duoneb 3 Mg/0.5 Mg (3 Ml) Ud) 3 ml IH RQID PRN PRN Reason: Wheezing Amlodipine Besylate (Norvasc) 5 mg PO DAILY [facility] Last Admin: 01/10/19 09:13 Dose: Not Given Aspirin (Ecotrin) 81 mg PO DAILY [facility] Last Admin: 01/10/19 11:30 Dose: Not Given Calcium Acetate (Phoslo) 667 mg PO TIDCC [facility] Last Admin: 01/10/19 18:04 Dose: 667 mg Carvedilol (Coreg) 3.125 mg PO BID [facility] Last Admin: 01/10/19 18:04 Dose: 3.125 mg Clonidine HCl (Catapres) 0.3 mg PO BID [facility] Last Admin: 01/10/19 18:04 Dose: 0.3 mg Dextrose (Dextrose 50% Inj) 0 ml IV STAT PRN; Protocol PRN Reason: Hypoglycemia Protocol Dextrose (Glutose 15) 0 gm PO ONCE PRN; Protocol PRN Reason: Hypoglycemia Protocol Diphenhydramine HCl (Benadryl) 25 mg IVP Q4 PRN PRN Reason: Allergy symptoms Last Admin: 01/10/19 18:05 Dose: 25 mg Diphenhydramine HCl (Benadryl) 50 mg IVP MWF PRN PRN Reason: Itchiness Docusate Sodium (Colace) 100 mg PO TID [facility] Last Admin: 01/10/19 18:04 Dose: 100 mg Epoetin James (Procrit) 10,000 unit IV [facility] Last Admin: 01/10/19 10:14 Dose: 10,000 unit Ergocalciferol (Drisdol 50,000 Intl Units Cap) 1 cap PO QWK [facility] Last Admin: 01/10/19 14:46 Dose: 1 cap Ferric Sodium Gluconate Complex (Ferrlecit) 125 mg IVPB [facility] Stop: 01/15/19 09:01 Last Admin: 01/10/19 10:13 Dose: 125 mg Gabapentin (Neurontin) 400 mg PO BID [facility] Last Admin: 01/10/19 18:06 Dose: 400 mg Glucagon (Glucagen Diagnostic Kit) 0 mg IM STAT PRN; Protocol PRN Reason: Hypoglycemia Protocol Hydromorphone HCl (Dilaudid) 1 mg IVP Q12H PRN PRN Reason: Pain, severe (8-10) Last Admin: 01/10/19 18:05 Dose: 1 mg Dextrose (Dextrose 5% In Water 1000 Ml) 1,000 mls @ 0 mls/hr IV .Q0M PRN; Protocol PRN Reason: Hypoglycemia Protocol Piperacillin Sod/Tazobactam (Sod 2.25 gm/ Sodium Chloride) 100 mls @ 200 mls/hr IVPB Q8H [facility]; Protocol Last Admin: 01/10/19 14:19 Dose: 200 mls/hr Insulin Aspart (Novolog) 0 unit SC [facility]; Protocol Last Admin: 01/10/19 18:04 Dose: 2 unit Insulin Glargine (Lantus) 25 unit SC [facility] Last Admin: 01/09/19 21:34 Dose: 25 unit Metoclopramide HCl (Reglan) 10 mg PO BID PRN PRN Reason: Nausea/Vomiting Ondansetron HCl (Zofran Tab) 4 mg PO Q8H PRN PRN Reason: Nausea/Vomiting Last Admin: 01/10/19 01:21 Dose: 4 mg Pantoprazole Sodium (Protonix Ec Tab) 40 mg PO DAILY [facility] Last Admin: 01/10/19 09:19 Dose: 40 mg Sucralfate (Carafate Oral Susp) 1 gm PO [facility] Last Admin: 01/10/19 18:03 Dose: 1 gm - Labs Labs: 01/08/19 21:32 01/08/19 21:32
[2019-01-10] MEDS: (Lantus) Insulin Glargine, Recombinant SC SCH (21:57)
[2019-01-11] MEDS: HYDROmorphone 1 mg/ml ISec IVP PRN ×3 (00:02→12:36)
[2019-01-11] MEDS ORDERED: (Novolin R) Insulin Human Regular 100 units/ml vial SC ONE (02:47)
[2019-01-11] MEDS: DiphenhydrAMINE 50 mg/ml Inj IVP PRN ×2 (06:24→12:36)
[2019-01-11] MEDS: (Novolog) Insulin Aspart, Recombinant 100 u/ml 10 ml vial SC SCH ×2 (08:26→11:31)
[2019-01-11] MEDS: Sucralfate 1 gm/10 ml Oral Susp UD PO SCH ×2 (08:26→11:37)
[2019-01-11] MEDS: Pantoprazole 40 mg EC Tab PO SCH (09:28)
--- NOTE | 2019-01-11 12:21 | CP.PCM.PN ---
Subjective - Date & Time of Evaluation Date of Evaluation: 01/11/19 Time of Evaluation: 12:18 - Subjective Subjective: CHART REVIEWED. PT SEEN AND EXAMINED., COVERING DR Edilia CARVALHO. PT ALERT, FEELS OK. LESS PAIN LEFT GROIN. ROS; OTHERWISE NEG. Objective - Vital Signs/Intake and Output Vital Signs (last 24 hours): Temp Pulse Resp BP Pulse Ox 97.5 F L 84 18 209/111 H 100 01/11/19 07:00 01/11/19 07:00 01/11/19 07:00 01/11/19 07:00 01/11/19 07:00 - Medications Medications: Current Medications Albuterol/Ipratropium (Duoneb 3 Mg/0.5 Mg (3 Ml) Ud) 3 ml IH RQID PRN PRN Reason: Wheezing Amlodipine Besylate (Norvasc) 5 mg PO DAILY [facility] Last Admin: 01/11/19 09:28 Dose: 5 mg Aspirin (Ecotrin) 81 mg PO DAILY [facility] Last Admin: 01/11/19 09:28 Dose: 81 mg Calcium Acetate (Phoslo) 667 mg PO TIDCC [facility] Last Admin: 01/11/19 11:37 Dose: 667 mg Carvedilol (Coreg) 3.125 mg PO BID [facility] Last Admin: 01/11/19 09:28 Dose: 3.125 mg Clonidine HCl (Catapres) 0.3 mg PO BID [facility] Last Admin: 01/11/19 09:28 Dose: 0.3 mg Dextrose (Dextrose 50% Inj) 0 ml IV STAT PRN; Protocol PRN Reason: Hypoglycemia Protocol Dextrose (Glutose 15) 0 gm PO ONCE PRN; Protocol PRN Reason: Hypoglycemia Protocol Diphenhydramine HCl (Benadryl) 25 mg IVP Q4 PRN PRN Reason: Allergy symptoms Last Admin: 01/11/19 06:24 Dose: 25 mg Diphenhydramine HCl (Benadryl) 50 mg IVP MWF PRN PRN Reason: Itchiness Docusate Sodium (Colace) 100 mg PO TID [facility] Last Admin: 01/11/19 09:28 Dose: 100 mg Epoetin James (Procrit) 10,000 unit IV MWF [facility] Last Admin: 01/10/19 10:14 Dose: 10,000 unit Ergocalciferol (Drisdol 50,000 Intl Units Cap) 1 cap PO QWK [facility] Last Admin: 01/10/19 14:46 Dose: 1 cap Ferric Sodium Gluconate Complex (Ferrlecit) 125 mg IVPB MWF [facility] Stop: 01/15/19 09:01 Last Admin: 01/10/19 10:13 Dose: 125 mg Gabapentin (Neurontin) 400 mg PO BID [facility] Last Admin: 01/11/19 09:28 Dose: 400 mg Glucagon (Glucagen Diagnostic Kit) 0 mg IM STAT PRN; Protocol PRN Reason: Hypoglycemia Protocol Hydromorphone HCl (Dilaudid) 1 mg IVP Q6H PRN PRN Reason: Pain, severe (8-10) Last Admin: 01/11/19 06:24 Dose: 1 mg Dextrose (Dextrose 5% In Water 1000 Ml) 1,000 mls @ 0 mls/hr IV .Q0M PRN; Protocol PRN Reason: Hypoglycemia Protocol Piperacillin Sod/Tazobactam (Sod 2.25 gm/ Sodium Chloride) 100 mls @ 200 mls/hr IVPB Q8H [facility]; Protocol Last Admin: 01/11/19 06:24 Dose: 200 mls/hr Insulin Aspart (Novolog) 0 unit SC [facility]; Protocol Last Admin: 01/11/19 11:31 Dose: Not Given Insulin Glargine (Lantus) 25 unit SC [facility] Last Admin: 01/10/19 21:57 Dose: 25 unit Metoclopramide HCl (Reglan) 10 mg PO BID PRN PRN Reason: Nausea/Vomiting Ondansetron HCl (Zofran Tab) 4 mg PO Q8H PRN PRN Reason: Nausea/Vomiting Last Admin: 01/11/19 08:26 Dose: 4 mg Pantoprazole Sodium (Protonix Ec Tab) 40 mg PO DAILY [facility] Last Admin: 01/11/19 09:28 Dose: 40 mg Sucralfate (Carafate Oral Susp) 1 gm PO [facility] Last Admin: 01/11/19 11:37 Dose: 1 gm - Labs Labs: 01/08/19 21:32 01/08/19 21:32 - Constitutional Appears: No Acute Distress, Chronically Ill - Head Exam Head Exam: ATRAUMATIC, NORMOCEPHALIC - Eye Exam Eye Exam: EOMI, Normal appearance - ENT Exam ENT Exam: Mucous Membranes Moist - Neck Exam Neck Exam: Normal Inspection - Respiratory Exam Respiratory Exam: absent: Wheezes, Respiratory Distress - Cardiovascular Exam Cardiovascular Exam: RRR, +S1, +S2 - GI/Abdominal Exam GI & Abdominal Exam: Soft. absent: Tenderness - Rectal Exam Rectal Exam: Deferred - Extremities Exam Extremities Exam: absent: Calf Tenderness, Pedal Edema - Back Exam Back Exam: absent: CVA tenderness (L), CVA tenderness (R) - Neurological Exam Neurological Exam: Alert, Awake, CN II-XII Intact, Oriented x3 - Psychiatric Exam Psychiatric exam: Normal Mood - Skin Skin Exam: absent: Rash Assessment and Plan (1) Abscess Status: Acute (2) ESRD (end stage renal disease) on dialysis Status: Acute (3) Uncontrolled diabetes mellitus Status: Acute (4) Accelerated essential hypertension Status: Acute (5) Anemia Status: Acute (6) Uncontrolled hypertension Status: Acute (7) CHF (congestive heart failure) Status: Chronic (8) End stage renal disease on dialysis Status: Chronic - Assessment and Plan (Free Text) Assessment: RESP STATUS COMFORTABLE. CONT AB, WOUND CARE. CXR REVIEWED. FOR HD PER RENAL. DISCUSSED WITH STAFF AT LENGTH. TIME SPENT 40 MIN.
--- NOTE | 2019-01-11 13:49 | CP.PCM.PN ---
Subjective - Date & Time of Evaluation Date of Evaluation: 01/11/19 Time of Evaluation: 13:48 - Subjective Subjective: patient seen and examined at the bedside Objective - Vital Signs/Intake and Output Vital Signs (last 24 hours): Temp Pulse Resp BP Pulse Ox 97.5 F L 84 18 209/111 H 100 01/11/19 07:00 01/11/19 07:00 01/11/19 07:00 01/11/19 07:00 01/11/19 07:00 - Medications Medications: Current Medications Albuterol/Ipratropium (Duoneb 3 Mg/0.5 Mg (3 Ml) Ud) 3 ml IH RQID PRN PRN Reason: Wheezing Amlodipine Besylate (Norvasc) 5 mg PO DAILY [facility] Last Admin: 01/11/19 09:28 Dose: 5 mg Aspirin (Ecotrin) 81 mg PO DAILY [facility] Last Admin: 01/11/19 09:28 Dose: 81 mg Calcium Acetate (Phoslo) 667 mg PO TIDCC [facility] Last Admin: 01/11/19 11:37 Dose: 667 mg Carvedilol (Coreg) 3.125 mg PO BID [facility] Last Admin: 01/11/19 09:28 Dose: 3.125 mg Clonidine HCl (Catapres) 0.3 mg PO BID [facility] Last Admin: 01/11/19 09:28 Dose: 0.3 mg Dextrose (Dextrose 50% Inj) 0 ml IV STAT PRN; Protocol PRN Reason: Hypoglycemia Protocol Dextrose (Glutose 15) 0 gm PO ONCE PRN; Protocol PRN Reason: Hypoglycemia Protocol Diphenhydramine HCl (Benadryl) 25 mg IVP Q4 PRN PRN Reason: Allergy symptoms Last Admin: 01/11/19 12:36 Dose: 25 mg Diphenhydramine HCl (Benadryl) 50 mg IVP MWF PRN PRN Reason: Itchiness Last Admin: 01/11/19 13:23 Dose: 50 mg Docusate Sodium (Colace) 100 mg PO TID [facility] Last Admin: 01/11/19 13:42 Dose: Not Given Epoetin James (Procrit) 10,000 unit IV MWF [facility] Last Admin: 01/10/19 10:14 Dose: 10,000 unit Ergocalciferol (Drisdol 50,000 Intl Units Cap) 1 cap PO QWK [facility] Last Admin: 01/10/19 14:46 Dose: 1 cap Ferric Sodium Gluconate Complex (Ferrlecit) 125 mg IVPB MWF [facility] Stop: 01/15/19 09:01 Last Admin: 01/10/19 10:13 Dose: 125 mg Gabapentin (Neurontin) 400 mg PO BID [facility] Last Admin: 01/11/19 09:28 Dose: 400 mg Glucagon (Glucagen Diagnostic Kit) 0 mg IM STAT PRN; Protocol PRN Reason: Hypoglycemia Protocol Dextrose (Dextrose 5% In Water 1000 Ml) 1,000 mls @ 0 mls/hr IV .Q0M PRN; Protocol PRN Reason: Hypoglycemia Protocol Piperacillin Sod/Tazobactam (Sod 2.25 gm/ Sodium Chloride) 100 mls @ 200 mls/hr IVPB Q8H [facility]; Protocol Last Admin: 01/11/19 13:43 Dose: Not Given Insulin Aspart (Novolog) [address] [facility]; Protocol Last Admin: 01/11/19 11:31 Dose: Not Given Insulin Glargine (Lantus) 25 unit SC [facility] Last Admin: 01/10/19 21:57 Dose: 25 unit Metoclopramide HCl (Reglan) 10 mg PO BID PRN PRN Reason: Nausea/Vomiting Ondansetron HCl (Zofran Tab) 4 mg PO Q8H PRN PRN Reason: Nausea/Vomiting Last Admin: 01/11/19 08:26 Dose: 4 mg Pantoprazole Sodium (Protonix Ec Tab) 40 mg PO DAILY [facility] Last Admin: 01/11/19 09:28 Dose: 40 mg Sucralfate (Carafate Oral Susp) [address] [facility] Last Admin: 01/11/19 11:37 Dose: 1 gm - Labs Labs: 01/08/19 21:32 01/08/19 21:32 Assessment and Plan - Assessment and Plan (Free Text) Assessment: FOLLOW UP WITH DR Edilia CARVALHO IN HIS OFFICE CONTINUE HOME MEDICAITON NEW PRESCRIPTION GIVEN VANCO 500 MG IVPB MWF FOR 7 DAYS ACTIVITY TOLERATED CALL DR Edilia CARVALHO OR GO TO THE EMERGENCY ROOM IF SYMPTOM RETURN OR WORSNING
[2019-01-11 17:09] VITALS: TEMP 98
[2019-01-11 17:11] VITALS: BP 156/85; PULSE 82; RESP 20; O2SAT 98
== END 2019-01-11 17:22 | disposition home or self-care (01) | DRG 295 ==
LOC: C.ER 20:29 → C.9E 23:09 → C.5S 01-09 00:39
PROVIDERS: ADMIT Internal Medicine Nephrology; ATTEND Internal Medicine Nephrology
PROC: 5A1D70Z Performance of Urinary Filtration, Intermittent, Less than 6 Hours Per Day (ICD-10-PCS; principal; 2019-01-10)
DX: E11.65 Type 2 diabetes mellitus with hyperglycemia (principal); I13.2 Hypertensive heart and chronic kidney disease with heart failure and with stage 5 chronic kidney disease, or end stage renal disease; I50.9 Heart failure, unspecified; N18.6 End stage renal disease; L02.214 Cutaneous abscess of groin; E78.00 Pure hypercholesterolemia, unspecified; E11.22 Type 2 diabetes mellitus with diabetic chronic kidney disease; E11.43 Type 2 diabetes mellitus with diabetic autonomic (poly)neuropathy; G47.30 Sleep apnea, unspecified; J45.909 Unspecified asthma, uncomplicated; K31.84 Gastroparesis; E03.9 Hypothyroidism, unspecified; D63.1 Anemia in chronic kidney disease; F41.9 Anxiety disorder, unspecified; Z99.2 Dependence on renal dialysis